=== PATIENT | male | born 1970 | race African-American/Black ===

== ENCOUNTER → 2017-08-16 10:21 | Inpatient (IN) | payer MEDICAID, OTHER ==
[2016-08-13 09:09] VITALS: BP 116/82; PULSE 131; RESP 20; TEMP 97.6; TEMP 99; O2SAT 95
[2016-08-13 10:51] VITALS: O2SAT 100
--- NOTE | 2016-08-13 11:26 | RADRPT ---
EXAM DATE/TIME: 08/13/2016 10:47 [place] COMPARISON: No previous studies available for comparison. INDICATIONS : Short of Breath. MEDICAL HISTORY : Cerebrovascular disease. Hypertension. Diabetes mellitus type 2. SURGICAL HISTORY : None. ENCOUNTER: Initial ACUITY: 1 day PAIN SCORE: Non-responsive. LOCATION: Bilateral chest FINDINGS: A single view of the chest demonstrates the lungs to be symmetrically aerated without evidence of mas s, infiltrate or effusion. The cardiomediastinal contours are unremarkable. Osseous structures are intact. CONCLUSION: No evidence of acute cardiopulmonary disease. Josafat Fortune MD on August 13, 2016 at 11:24 Board Certified Radiologist. This report was verified electronically.
[2016-08-13 11:28] LABS: AUTOMATED NEUTROPHIL # 12.3 TH/MM3 (1.8-7.7); BASOPHIL % 0.2 % (0.0-2.0); EOSINOPHIL # 0.1 TH/MM3 (0-0.4); EOSINOPHIL % 0.4 % (0.0-4.0); HEMATOCRIT 42.6 % (39.0-51.0); HEMOGLOBIN 13.6 GM/DL (13.0-17.0); LYMPH % 10.6 % (9.0-44.0); LYMPHOCYTE # 1.6 TH/MM3 (1.0-4.8); MEAN CELL VOLUME 87.8 FL (80.0-100.0); MEAN CORPUSCULAR HGB CONC 31.9 % (32.0-36.0); MEAN PLATELET VOLUME 9.4 FL (7.0-11.0); MONO % 6.2 % (0.0-8.0); MONOCYTE # 0.9 TH/MM3 (0-0.9); NEUT % 82.6 % (16.0-70.0); PLATELET COUNT 386 TH/MM3 (150-450); RED BLOOD COUNT 4.85 MIL/MM3 (4.50-5.90); WHITE BLOOD COUNT 14.9 TH/MM3 (4.0-11.0)
[2016-08-13 11:46] LABS: ALBUMIN 2.8 GM/DL (3.4-5.0); ALKALINE PHOSPHATASE 80 U/L (45-117); ALT (GPT) 25 U/L (12-78); BICARBONATE 28.5 MEQ/L (21.0-32.0); BLOOD UREA NITROGEN 28 MG/DL (7-18); CALCIUM 9.6 MG/DL (8.5-10.1); CHLORIDE 100 MEQ/L (98-107); CREATININE 1.01 MG/DL (0.60-1.30); GLOMERULAR FILTRATION RATE 97 ML/MIN (>89); GLUCOSE,RANDOM 164 MG/DL (74-106); SODIUM (NA) 138 MEQ/L (136-145); TOTAL BILIRUBIN ADULT 0.3 MG/DL (0.2-1.0); TOTAL PROTEIN 8.6 GM/DL (6.4-8.2)
[2016-08-13 11:47] LABS: AST (GOT) 52 U/L (15-37)
[2016-08-13 12:10] VITALS: BP 119/82; PULSE 123; RESP 22; O2SAT 99
[2016-08-13 12:31] LABS: BACTERIA, URINE RARE /hpf; BILIRUBIN, URINE NEG (NEG); BLOOD, URINE MOD (NEG); GLUCOSE,URINE NEG (NEG); KETONE, URINE NEG (NEG); MUCUS URINE FEW /lpf (OCC); NITRITE,URINE NEG (NEG); PH, URINE 5.5 (5.0-8.5); SQUAMOUS EPITHELIAL CELL URINE <1 /hpf (0-5); URINE COLOR YELLOW (YELLW/STRAW); URINE LEUKOCYTE ESTERASE NEG (NEG)
--- NOTE | 2016-08-13 13:50 | PD ---
HPI Chief Complaint: Skin Problem Time Seen by Provider: 10:08 Travel History International Travel<30 days: No Contact w/Intl Traveler<30days: No Traveled to known affect area: No History of Present Illness HPI 46-year-old male came to the emergency room brought by EMS with history of a skin tear on his left upper extremity. Patient has history of CVA and is bedbound. He is nonverbal. He lives with his sister who is his auto air conditioning apprentice. She called EMS. She is not here to give any history and this is the only history EMS could provide. And cannot speak for himself. He was tachycardic with heart rate of 128 in the ER. Rectal temperature done and was 99.8. PFSH Past Medical History Narrative Medical List of his past medical history as reviewed from the nursing note. Hx Anticoagulant Therapy: Yes Arthritis: No Asthma: No Autoimmune Disease: No Blood Disorders: No Anxiety: No Depression: No Heart Rhythm Problems: No Cancer: No Cardiovascular Problems: No Chemotherapy: No Chest Pain: No Congestive Heart Failure: No COPD: No Cerebrovascular Accident: Yes Diabetes: Yes (?) Patient Takes Glucophage: No Diminished Hearing: No Endocrine: No Gastrointestinal Disorders: No GERD: No Genitourinary: No Headaches: Yes Hiatal Hernia: No Hypertension: Yes Immune Disorder: No Implanted Vascular Access Dvce: No Kidney Stones: No Musculoskeletal: No Neurologic: Yes (CVA IN OCTOBER 2015) Psychiatric: No Reproductive: No Respiratory: No Immunizations Current: Yes Migraines: Yes Radiation Therapy: No Renal Failure: No Seizures: No Sickle Cell Disease: No Sleep Apnea: No Thyroid Disease: No Ulcer: No Tetanus Vaccination: > 5 Years Past Surgical History Abdominal Surgery: Yes AICD: No Arteriovenous Shunt: No Cardiac Surgery: No Ear Surgery: No Endocrine Surgery: No Eye Surgery: No Genitourinary Surgery: No Gynecologic Surgery: No Insulin Pump: No Joint Replacement: No Neurologic Surgery: No Oral Surgery: No Pacemaker: No Thoracic Surgery: No Other Surgery: Yes Social History Alcohol Use: No Tobacco Use: No Substance Use: No Allergies-Medications (Allergen,Severity, Reaction): Coded Allergies: *MDRO Multi-Drug Resistant Organism (Verified Adverse Reaction, Unknown, ) MDR-Enterobacter Aerogenes (urine-02/20/16) Comments List of his allergies reviewed from the nursing note. Reported Meds & Prescriptions Reported Meds & Active Scripts Active Active Prescriptions or Reported Medications Unobtainable Narrative Medication List of his home medications reviewed from the nursing note. Review of Systems Except as stated in HPI: all other systems reviewed are Neg Physical Exam Narrative GENERAL: Awake, nonverbal, nonambulatory SKIN: Warm and dry. HEAD: Atraumatic. Normocephalic. EYES: Pupils equal and round. No scleral icterus. No injection or drainage. ENT: No nasal bleeding or discharge. Dry mucous membrane. Poor dental hygiene NECK: Trachea midline. No JVD. CARDIOVASCULAR: Regular rate and rhythm. Tachycardia. No murmur appreciated. RESPIRATORY: No accessory muscle use. Clear to auscultation. Breath sounds equal bilaterally. GASTROINTESTINAL: Abdomen soft, non-tender, nondistended. Hepatic and splenic margins not palpable. MUSCULOSKELETAL: No obvious deformities. No clubbing. No cyanosis. No edema. NEUROLOGICAL: Awake, nonverbal, bedbound PSYCHIATRIC: Appropriate mood and affect; insight and judgment normal. Data Data Last Documented VS Vital Signs Date Time Temp Pulse Resp B/P Pulse Ox O2 Delivery O2 Flow Rate FiO2 08/13/16 12:10 123 22 119/82 99 Room Air 08/13/16 09:09 99.0 Orders Electrocardiogram (08/13/16 09:16) Complete Blood Count With Diff (08/13/16 10:36) Comprehensive Metabolic Panel (08/13/16 10:36) Lactic Acid Sepsis Protocol (08/13/16 10:36) Urinalysis - C+S If Indicated (08/13/16 10:36) Blood Culture (08/13/16 10:36) Chest, Single Ap (08/13/16 10:36) Blood Glucose (08/13/16 10:36) Ecg Monitoring (08/13/16 10:36) Iv Access Insert/Monitor (08/13/16 10:36) Oximetry (08/13/16 10:36) Oxygen Administration (08/13/16 10:36) Sodium Chlor 0.9% 1000 Ml Inj (Ns 1000 M (08/13/16 10:45) ^ Straight Catheter (08/13/16 12:11) Urine Culture (08/13/16 12:08) Sodium Chlor 0.9% 1000 Ml Inj (Ns 1000 M (08/13/16 13:45) Piperacil-Tazo 4.5 Gm Premix (Zosyn 4.5 (08/13/16 13:45) Vancomycin Inj (Vancomycin Inj) (08/13/16 13:45) Labs Laboratory Tests Test 08/13/16 08/13/16 10:45 12:08 White Blood Count 14.9 TH/MM3 Red Blood Count 4.85 MIL/MM3 Hemoglobin 13.6 GM/DL Hematocrit 42.6 % Mean Corpuscular Volume 87.8 FL Mean Corpuscular Hemoglobin 28.0 PG Mean Corpuscular Hemoglobin 31.9 % Concent Red Cell Distribution Width 15.0 % Platelet Count 386 TH/MM3 Mean Platelet Volume 9.4 FL Neutrophils (%) (Auto) 82.6 % Lymphocytes (%) (Auto) 10.6 % Monocytes (%) (Auto) 6.2 % Eosinophils (%) (Auto) 0.4 % Basophils (%) (Auto) 0.2 % Neutrophils # (Auto) 12.3 TH/MM3 Lymphocytes # (Auto) 1.6 TH/MM3 Monocytes # (Auto) 0.9 TH/MM3 Eosinophils # (Auto) 0.1 TH/MM3 Basophils # (Auto) 0.0 TH/MM3 CBC Comment DIFF FINAL Differential Comment Sodium Level 138 MEQ/L Potassium Level 4.3 MEQ/L Chloride Level 100 MEQ/L Carbon Dioxide Level 28.5 MEQ/L Anion Gap 10 MEQ/L Blood Urea Nitrogen 28 MG/DL Creatinine 1.01 MG/DL Estimat Glomerular Filtration 97 ML/MIN Rate Random Glucose 164 MG/DL Lactic Acid Level 1.7 mmol/L Calcium Level 9.6 MG/DL Total Bilirubin 0.3 MG/DL Aspartate Amino Transf 52 U/L (AST/SGOT) Alanine Aminotransferase 25 U/L (ALT/SGPT) Alkaline Phosphatase 80 U/L Total Protein 8.6 GM/DL Albumin 2.8 GM/DL Urine Color YELLOW Urine Turbidity CLEAR Urine pH 5.5 Urine Specific [place] 1.031 Urine Protein 100 mg/dL Urine Glucose (UA) NEG mg/dL Urine Ketones NEG mg/dL Urine Occult Blood MOD Urine Nitrite NEG Urine Bilirubin NEG Urine Urobilinogen LESS THAN 2.0 MG/DL Urine Leukocyte Esterase NEG Urine WBC LESS THAN 1 /hpf Urine Squamous Epithelial <1 /hpf Cells Urine Bacteria RARE /hpf Urine Mucus FEW /lpf Microscopic Urinalysis Comment CATH-CULTURE IND MDM Medical Decision Making Medical Screen Exam Complete: Yes Emergency Medical Condition: Yes Medical Record Reviewed: Yes Interpretation(s) Twelve-lead EKG was reviewed by me. Normal sinus rhythm, normal axis, nonspecific ST-T wave changes, tachycardia. Heart rate of 129 bpm. Differential Diagnosis Sepsis, pneumonia, UTI Narrative Course 1:48 PM blood test results are back shows leukocytosis. UA report finally came back which had to be sent after doing a straight catheter. Patient was initially given 1 L of IV fluid bolus which has brought his heart rate down to 110 bpm. I have ordered a second liter of IV fluid bolus. UA is suggestive of UTI. I have ordered IV Zosyn and vancomycin for possible sepsis. Patient was admitted to the hospitalist service. Critical Care Narrative Aggregate critical care time was 30 minutes. Time to perform other separately billable procedures was not included in the critical care time. My time did not include minutes spent treating any other patients simultaneously or on activities that did not directly contribute to the patient's treatment. The services I provided to this patient were to treat and/or prevent clinically significant deterioration that could result in: Sepsis, sepsis protocol I provided critical care services requiring my management, as noted below: Chart data review, documentation time, medication orders and management, vital sign assessments/reviewing monitor data, ordering and reviewing lab tests, ordering and interpreting/reviewing x-rays and diagnostic studies, care of the patient and discussion of the patient with the admitting physicians. Procedures EKG Prior to Arrival: Yes Diagnosis Primary Impression: Sepsis Qualified Code: A41.9 - Sepsis, due to unspecified organism Additional Impression: UTI (urinary tract infection) Qualified Code: N39.0 - Urinary tract infection without hematuria, site unspecified Admitting Information Admitting Physician Requests: Admit Scripts Unable to Obtain Active Prescriptions or Reported Meds Rocco Marsh MD Aug 13, 2016 13:50 Rocco Marsh MD Aug 13, 2016 13:50
[2016-08-13] MEDS: INSULIN ASPART SUPPLEMENTAL SCALE SQ SCH ×2 (16:00→21:00)
[2016-08-13] MEDS: DILTIAZEM-CD 120 MG CAP ER PO SCH (16:00)
[2016-08-13] MEDS: SODIUM CHLOR 0.9% 1000 ML INJ 1,000 ML IV SCH (17:00)
--- NOTE | 2016-08-13 17:22 | EKG ---
Date Performed: 08/13/2016 Time Performed: 09:19:09 PTAGE: 46 years EKG: SINUS TACHYCARDIA WITH SHORT OH INTERVAL Compared to previous tracing, HR is faster, otherw ise no significant change ABNORMAL RHYTHM ECG INTERPRETATION BASED ON A DEFAULT AGE OF 42 YEARS NO PREVIOUS TRACING DOCTOR: London Yi Interpretating Date/Time 08/13/2016 17:20:56
--- NOTE | 2016-08-13 17:26 | HHI.HP ---
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 All the information obtained from the EMR and ER physicians know as the patient is nonverbal and unable to provide any history. Apparently the patient lives at home with his sister who is his pedigree tracer. She reported the patient has had decreased oral intake over the past few days. Also complains of a skin tear at the left antecubital space , unknown how the injury occurred. Upon arrival to the ER, patient was tachycardic with heart rate 131, rectal temperature 99.8. Labs remarkable for WBC 14.9 K, elevated BUN 28, lactic acid 1.7. Urinalysis shows possible UTI with bacteria. Blood cultures collected. He was started on IV Vanco and Zosyn. Review of Systems ROS Limitations: Speech Impaired, Other (nonverbal, unable to obtain ROS) Past Family Social History Past Medical History neuro-Behcet's diagnosed at [facility] [place] left frontal CVA, bedbound, nonverbal mural thrombus brain abscess meningitis hypertension diabetes Past Surgical History Right chest tube Reported Medications Patient's home medications unavailable at this time, requested nursing staff to update med list Allergies: Coded Allergies: *MDRO Multi-Drug Resistant Organism (Verified Adverse Reaction, Unknown, ) MDR-Enterobacter Aerogenes (urine-02/20/16) Active Ordered Medications Current Medications Medications (Trade) Dose Ordered Sig/Beau Route Start Time Stop Time Status Last Admin (Cardizem Cd) 120 mg DAILY PO 08/13/16 16:00 (Pepcid) 20 mg BID PO 08/13/16 21:00 (D50w (Vial) Inj) 25 ml UNSCH PRN IV PUSH 08/13/16 13:45 Glucagon 1 mg 1 mg UNSCH PRN OTHER 08/13/16 13:45 Piperacillin Sod/ Tazobactam Sod 100 ml @ 200 mls/hr Q6H IV 08/13/16 21:00 (NS 1000 ml Inj) 1,000 ml @ 100 mls/hr Q10H IV 08/13/16 15:00 08/13/16 17:00 (NS Flush) 2 ml UNSCH PRN FLUSH 08/13/16 14:00 (NS Flush) 2 ml BID FLUSH 08/13/16 21:00 (Tylenol) 650 mg Q4H PRN PO 08/13/16 14:00 (Zofran Inj) 4 mg Q6H PRN IVP 08/13/16 14:00 (Narcan Inj) 0.4 mg UNSCH PRN IV 08/13/16 14:00 (Lipitor) 40 mg HS PO 08/13/16 21:00 Family History Unable to obtain from the patient Social History Unable to obtain from the patient, however EMR reports no tobacco, alcohol, or illicit drug use. Physical Exam Vital Signs Vital Signs Date Time Temp Pulse Resp B/P Pulse Ox O2 Delivery O2 Flow Rate FiO2 08/13/16 12:10 123 22 119/82 99 Room Air 08/13/16 10:51 100 Room Air 08/13/16 10:43 100 Room Air 08/13/16 09:09 99.0 131 20 116/82 95 Physical Exam GENERAL: Well-developed male patient, moaning only, nonverbal, nonambulatory. SKIN: Cool and dry. Left antecubital space with 2cm superficial skin tear. HEAD: Atraumatic. Normocephalic. EYES: Pupils equal round and reactive. No scleral icterus. No injection or drainage. ENT: Nose without bleeding, purulent drainage or septal hematoma. Airway patent. NECK: Trachea midline. No JVD or lymphadenopathy. Supple, nontender, no meningeal signs. CARDIOVASCULAR: Tachycardic, Regular rhythm without murmurs, gallops, or rubs. RESPIRATORY: No accessory muscle use. Some upper airway sounds, otherwise clear to auscultation. Breath sounds equal bilaterally. GASTROINTESTINAL: Abdomen soft, non-tender, nondistended. Normoactive bowel sounds x4. MUSCULOSKELETAL: Extremities without clubbing, cyanosis, or edema. NEUROLOGICAL: Awake and alert. Nonverbal, bedbound, not moving extremities. Laboratory Laboratory Tests Test 08/13/16 08/13/16 10:45 12:08 White Blood Count 14.9 Red Blood Count 4.85 Hemoglobin 13.6 Hematocrit 42.6 Mean Corpuscular Volume 87.8 Mean Corpuscular Hemoglobin 28.0 Mean Corpuscular Hemoglobin 31.9 Concent Red Cell Distribution Width 15.0 Platelet Count 386 Mean Platelet Volume 9.4 Neutrophils (%) (Auto) 82.6 Lymphocytes (%) (Auto) 10.6 Monocytes (%) (Auto) 6.2 Eosinophils (%) (Auto) 0.4 Basophils (%) (Auto) 0.2 Neutrophils # (Auto) 12.3 Lymphocytes # (Auto) 1.6 Monocytes # (Auto) 0.9 Eosinophils # (Auto) 0.1 Basophils # (Auto) 0.0 CBC Comment DIFF FINAL Differential Comment Sodium Level 138 Potassium Level 4.3 Chloride Level 100 Carbon Dioxide Level 28.5 Anion Gap 10 Blood Urea Nitrogen 28 Creatinine 1.01 Estimat Glomerular Filtration 97 Rate Random Glucose 164 Lactic Acid Level 1.7 Calcium Level 9.6 Total Bilirubin 0.3 Aspartate Amino Transf 52 (AST/SGOT) Alanine Aminotransferase 25 (ALT/SGPT) Alkaline Phosphatase 80 Total Protein 8.6 Albumin 2.8 Urine Color YELLOW Urine Turbidity CLEAR Urine pH 5.5 Urine Specific [place] 1.031 Urine Protein 100 Urine Glucose (UA) NEG Urine Ketones NEG Urine Occult Blood MOD Urine Nitrite NEG Urine Bilirubin NEG Urine Urobilinogen LESS THAN 2.0 Urine Leukocyte Esterase NEG Urine WBC LESS THAN 1 Urine Squamous Epithelial <1 Cells Urine Bacteria RARE Urine Mucus FEW Microscopic Urinalysis Comment CATH-CULTURE IND Date/Time Procedure Status Source Growth 08/13/16 12:08 Urine Culture Received Urine Clean Catch Pending 08/13/16 10:45 Aerobic Blood Culture Received Blood Peripheral Pending 08/13/16 10:45 Anaerobic Blood Culture Received Blood Peripheral Pending Result Diagram: 08/13/16 1045 08/13/16 1045 Imaging Last Impressions Chest X-Ray 08/13/16 1036 Signed Impressions: Service Date/Time: Saturday, August 13, 2016 10:47 - CONCLUSION: No evidence of acute cardiopulmonary disease. 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 Sepsis with UTI: tachycardic with heart rate 131, rectal temperature 99.8. Labs remarkable for WBC 14.9 K, elevated BUN 28, lactic acid 1.7. Urinalysis shows possible UTI with bacteria. CXR images reviewed, unremarkable. Blood cultures collected. Started on IV Vanco and Zosyn in the ED. Give IVF. Continue Zosyn. Decreased Oral Intake: likely secondary to above, however RN also noted patient choking on sips on water. Check swallow eval with ST. Give IVF. Left antecubital skin tear: Etiology unclear. Family reports that it started as a blister. Continue dressing changes per RN. Diabetes: chronic, monitor Accu-Cheks and cover with low-dose SSI. All other medical conditions stable, continue home meds. DVT Prophylaxis: teds/SCDs Written by Anita Cabrera, acting as scribe for Dr. Garrett on 08/13/16 at 17: 25. The documentation accurately reflects the work performed [id number] by me on 08/13/16 at 1725. Discussed Condition With ER MD, [employer] Physician Certification 2 Midnight Certification Type: Admission for Inpatient Services Order for Inpatient Services The services are ordered in accordance with Medicare regulations or non- Medicare payer requirements, as applicable. In the case of services not specified as inpatient-only, they are appropriately provided as inpatient services in accordance with the 2-midnight benchmark. Estimated LOS (days): 3 days is the estimated time the patient will need to remain in the hospital, assuming treatment plan goals are met and no additional complications. Post-Hospital Plan: Not yet determined Anita Cabrera PA-C Aug 13, 2016 17:26 Leticia Garrett MD Aug 13, 2016 18:46
[2016-08-13 18:28] VITALS: BP 125/83; PULSE 107; RESP 20; O2SAT 100
[2016-08-13 19:07] VITALS: BP 113/86; PULSE 100; RESP 15; O2SAT 100
[2016-08-13] MEDS: ATORVASTATIN 40 MG TAB PO SCH (19:07)
[2016-08-13] MEDS: SODIUM CHLORIDE 0.9% FLUSH 5 ML FLUSH FLUSH SCH (19:08)
[2016-08-13] MEDS: FAMOTIDINE 20 MG TAB PO SCH (19:08)
[2016-08-13 21:00] VITALS: BP 143/60; PULSE 89; RESP 18; TEMP 96.5; O2SAT 96
[2016-08-13] MEDS: PIPERACIL-TAZO 4.5 GM PREMIX 100 ML IV SCH (22:27)
[2016-08-14] VITALS: BP 104/76; PULSE 106; RESP 17; TEMP 96.5; O2SAT 99
[2016-08-14] MEDS: PIPERACIL-TAZO 4.5 GM PREMIX 100 ML IV SCH ×4 (02:51→22:55)
[2016-08-14] MEDS: SODIUM CHLOR 0.9% 1000 ML INJ 1,000 ML IV SCH ×2 (02:52→11:00)
[2016-08-14 04:00] VITALS: BP 99/68; PULSE 111; RESP 20; TEMP 97.7; O2SAT 99
[2016-08-14] MEDS: INSULIN ASPART SUPPLEMENTAL SCALE SQ SCH ×4 (07:00→21:00)
[2016-08-14 07:50] VITALS: BP 106/70; PULSE 101; RESP 20; TEMP 96.2; O2SAT 98
[2016-08-14 07:51] LABS: AUTOMATED NEUTROPHIL # 9.6 TH/MM3 (1.8-7.7); BASOPHIL % 0.2 % (0.0-2.0); EOSINOPHIL # 0.1 TH/MM3 (0-0.4); EOSINOPHIL % 1.2 % (0.0-4.0); HEMATOCRIT 33.7 % (39.0-51.0); HEMOGLOBIN 10.8 GM/DL (13.0-17.0); LYMPH % 10.4 % (9.0-44.0); LYMPHOCYTE # 1.2 TH/MM3 (1.0-4.8); MEAN CELL VOLUME 87.9 FL (80.0-100.0); MEAN CORPUSCULAR HEMOGLOBIN 28.2 PG (27.0-34.0); MONO % 5.9 % (0.0-8.0); MONOCYTE # 0.7 TH/MM3 (0-0.9); NEUT % 82.3 % (16.0-70.0); PLATELET COUNT 335 TH/MM3 (150-450); RED BLOOD COUNT 3.84 MIL/MM3 (4.50-5.90); RED CELL DISTRIBUTION WIDTH 15.1 % (11.6-17.2); WHITE BLOOD COUNT 11.6 TH/MM3 (4.0-11.0)
[2016-08-14 08:24] LABS: CALCIUM 8.9 MG/DL (8.5-10.1); CREATININE 0.97 MG/DL (0.60-1.30)
[2016-08-14] MEDS: DILTIAZEM-CD 120 MG CAP ER PO SCH (09:00)
[2016-08-14] MEDS: FAMOTIDINE 20 MG TAB PO SCH ×2 (09:00→21:00)
[2016-08-14] MEDS: SODIUM CHLORIDE 0.9% FLUSH 5 ML FLUSH FLUSH SCH ×2 (09:00→21:00)
[2016-08-14 11:55] VITALS: BP 100/69; PULSE 102; RESP 20; TEMP 96.6; O2SAT 99
--- NOTE | 2016-08-14 13:23 | HHI.PR ---
Subjective Remarks Patient is nonverbal. He can shake his head yes or no to some questions. Afebrile. He still moans. Unclear if he is in pain but he nods no when asked. Objective Vitals Vital Signs Date Time Temp Pulse Resp B/P Pulse Ox O2 Delivery O2 Flow Rate FiO2 08/14/16 11:55 96.6 102 20 100/69 99 08/14/16 07:50 96.2 101 20 106/70 98 08/14/16 04:00 97.7 111 20 99/68 99 08/14/16 00:00 96.5 106 17 104/76 99 08/13/16 21:00 96.5 89 18 143/60 96 08/13/16 19:07 100 15 113/86 100 Room Air 08/13/16 18:28 107 20 125/83 100 Room Air I/O 08/13/16 08/13/16 08/13/16 08/14/16 08/14/16 08/14/16 06:59 14:59 22:59 06:59 14:59 22:59 Intake Total 322 ml 680 ml Output Total 600 ml Balance 322 ml 80 ml Intake IV Total 322 ml 680 ml Output Urine Total 600 ml # Voids 1 Result Diagram: 08/14/16 0716 08/14/16 0716 Imaging Last Impressions Chest X-Ray 08/13/16 1036 Signed Impressions: Service Date/Time: Saturday, August 13, 2016 10:47 - CONCLUSION: No evidence of acute cardiopulmonary disease. Josafat Fortune MD Objective Remarks GENERAL: Chronically ill-appearing male in no apparent distress. Moans most of the time. CARDIOVASCULAR: Normal rate and regular rhythm without murmurs, gallops, or rubs. RESPIRATORY: Breath sounds equal and clear to auscultation bilaterally. GASTROINTESTINAL: Abdomen soft, non-distended. Normal active bowel sounds MUSCULOSKELETAL: Extremities without some evidence of contractures. NEURO: Patient is nonverbal. Noninteractive. Can nod yes or no to some questions. 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 Sepsis with UTI: On arrival patient was tachycardic with heart rate 131, rectal temperature 99.8. Labs remarkable for WBC 14.9 K, elevated BUN 28, lactic acid 1.7. Urinalysis shows possible UTI with bacteria. CXR images reviewed, unremarkable. Started on IV Vanco and Zosyn in the ED. Give IVF. Continue Zosyn. Follow blood and urine cultures. Decreased Oral Intake: likely secondary to above, however RN also noted patient choking on sips on water. Patient appear to have a lot of secretions. Suction as needed. Consult speech therapy for swallow eval. Left antecubital skin tear: Etiology unclear. Family reports that it started as a blister. Continue dressing changes per RN. Diabetes: chronic, monitor Accu-Cheks and cover with low-dose SSI. All other medical conditions stable, continue home meds. DVT Prophylaxis: teds/SCDs Problem Qualifiers (1) UTI (urinary tract infection): Qualified Code: N39.0 - Urinary tract infection without hematuria, site unspecified (2) Sepsis: Qualified Code: A41.9 - Sepsis, due to unspecified organism Leticia Garrett MD Aug 14, 2016 13:23
[2016-08-14] MEDS: D5-1/2 NS + KCL 10 MEQ INJ 1,000 ML IV SCH ×2 (14:03→23:30)
[2016-08-14 15:00] VITALS: BP 101/67; PULSE 97; RESP 20; TEMP 96.7; O2SAT 98
[2016-08-14 20:00] VITALS: BP 104/70; PULSE 98; RESP 18; TEMP 96.6; O2SAT 99
[2016-08-14] MEDS: ATORVASTATIN 40 MG TAB PO SCH (21:00)
[2016-08-15] VITALS: BP 108/68; PULSE 96; RESP 17; TEMP 97.5; O2SAT 98
[2016-08-15] MEDS: PIPERACIL-TAZO 4.5 GM PREMIX 100 ML IV SCH ×4 (02:14→19:53)
[2016-08-15 04:00] VITALS: BP 108/80; PULSE 97; RESP 17; TEMP 97.9; O2SAT 99
[2016-08-15] MEDS: INSULIN ASPART SUPPLEMENTAL SCALE SQ SCH ×4 (06:45→19:56)
[2016-08-15 08:00] VITALS: BP 107/69; PULSE 97; RESP 16; TEMP 97.6; O2SAT 98
[2016-08-15] MEDS: DILTIAZEM-CD 120 MG CAP ER PO SCH (09:00)
[2016-08-15] MEDS: FAMOTIDINE 20 MG TAB PO SCH ×2 (09:00→19:54)
[2016-08-15] MEDS: SODIUM CHLORIDE 0.9% FLUSH 5 ML FLUSH FLUSH SCH ×2 (09:00→19:53)
[2016-08-15] MEDS: D5-1/2 NS + KCL 10 MEQ INJ 1,000 ML IV SCH ×2 (09:30→19:53)
--- NOTE | 2016-08-15 09:33 | HHI.PR ---
Subjective Remarks No new issues. Patient can nod yes or no. Appear more alert today. Need modified barium swallow eval per speech therapy recommendations. Objective Vitals Vital Signs Date Time Temp Pulse Resp B/P Pulse Ox O2 Delivery O2 Flow Rate FiO2 08/15/16 04:00 97.9 97 17 108/80 99 08/15/16 00:00 97.5 96 17 108/68 98 08/14/16 20:00 96.6 98 18 104/70 99 08/14/16 15:00 96.7 97 20 101/67 98 08/14/16 11:55 96.6 102 20 100/69 99 I/O 08/14/16 08/14/16 08/14/16 08/15/16 08/15/16 08/15/16 06:59 14:59 22:59 06:59 14:59 22:59 Intake Total 680 ml 868 ml Output Total 600 ml 450 ml 400 ml Balance 80 ml 418 ml -400 ml Intake Oral 0 ml IV Total 680 ml 868 ml Output Urine Total 600 ml 450 ml 400 ml # Voids 1 # Bowel Movements 0 0 Result Diagram: 08/14/16 0716 08/14/16 0716 Objective Remarks GENERAL: Chronically ill-appearing male in no apparent distress. Moans sometimes. Can nod yes or no to some questions. CARDIOVASCULAR: Normal rate and regular rhythm without murmurs, gallops, or rubs. RESPIRATORY: Breath sounds equal and clear to auscultation bilaterally. GASTROINTESTINAL: Abdomen soft, non-distended. Normal active bowel sounds MUSCULOSKELETAL: Extremities without some evidence of contractures. NEURO: Patient is nonverbal. Noninteractive. Can nod yes or no to some questions. 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 Sepsis with UTI: On arrival patient was tachycardic with heart rate 131, rectal temperature 99.8. Labs remarkable for WBC 14.9 K, elevated BUN 28, lactic acid 1.7. Urinalysis shows possible UTI with bacteria. CXR images reviewed, unremarkable. Started on IV Vanco and Zosyn in the ED. Give IVF. Continue Zosyn. Urine cultures negative. One out of 4 blood cultures with gram- positive. ? Contaminant. Repeat blood cultures. Decreased Oral Intake and dysphagia: Speech therapy following. Recommend modified barium swallow. This was ordered. May need alternate method of feeding. Left antecubital skin tear: Etiology unclear. Family reports that it started as a blister. Continue dressing changes per RN. Diabetes: chronic, monitor Accu-Cheks and cover with low-dose SSI. All other medical conditions stable, continue home meds. DVT Prophylaxis: teds/SCDs Problem Qualifiers (1) UTI (urinary tract infection): Qualified Code: N39.0 - Urinary tract infection without hematuria, site unspecified (2) Sepsis: Qualified Code: A41.9 - Sepsis, due to unspecified organism Leticia Garrett MD Aug 15, 2016 09:33
--- NOTE | 2016-08-15 11:37 | RADRPT ---
EXAM DATE/TIME: 08/15/2016 00:00 [facility] COMPARISON: No previous studies available for comparison. INDICATIONS : Dysphagia. FLUORO TIME: 3.8 minutes IMAGE COUNT: 0 CONTRAST: Dose as prescribed by speech pathologist. MEDICAL HISTORY : Cerebrovascular disease. Diabetes mellitus type II. Hypertension. stroke SURGICAL HISTORY : None. ENCOUNTER: Initial ACUITY: 2 days PAIN SCORE: Non-responsive. LOCATION: Bilateral neck FINDINGS: A modified barium swallow was performed with speech pathology. Patient was given a variety of liquids to swallow. Delayed oral emptying with tongue pumping is appreciated. After swallowing an appropriate trigger mec hanism of the cervical esophagus is normal both anatomically and physiologically with no evidence of penetration or aspiration. For a full detailed report, see report by the speech pathologist. CONCLUSION: See report above and speech pathology report Chacho Bright MD on August 15, 2016 at 11:34 Board Certified Radiologist. This report was verified electronically.
[2016-08-15 12:00] VITALS: BP 106/70; PULSE 89; RESP 16; TEMP 97.8; O2SAT 98
[2016-08-15 13:38] LABS: AUTOMATED NEUTROPHIL # 12.1 TH/MM3 (1.8-7.7); BASOPHIL % 0.1 % (0.0-2.0); EOSINOPHIL # 0.1 TH/MM3 (0-0.4); EOSINOPHIL % 0.4 % (0.0-4.0); HEMOGLOBIN 11.6 GM/DL (13.0-17.0); LYMPH % 6.5 % (9.0-44.0); LYMPHOCYTE # 0.9 TH/MM3 (1.0-4.8); MEAN CELL VOLUME 89.7 FL (80.0-100.0); MEAN CORPUSCULAR HEMOGLOBIN 28.2 PG (27.0-34.0); MEAN CORPUSCULAR HGB CONC 31.4 % (32.0-36.0); MEAN PLATELET VOLUME 8.7 FL (7.0-11.0); MONOCYTE # 0.7 TH/MM3 (0-0.9); PLATELET COUNT 349 TH/MM3 (150-450); RED BLOOD COUNT 4.12 MIL/MM3 (4.50-5.90); RED CELL DISTRIBUTION WIDTH 15.1 % (11.6-17.2); WHITE BLOOD COUNT 13.8 TH/MM3 (4.0-11.0)
[2016-08-15 14:06] LABS: CREATININE 1.01 MG/DL (0.60-1.30)
[2016-08-15 16:15] VITALS: BP 113/68; PULSE 119; RESP 18; TEMP 102.4; O2SAT 96
--- NOTE | 2016-08-15 17:06 | RADRPT ---
EXAM DATE/TIME: 08/15/2016 16:35 [facility] COMPARISON: CHEST SINGLE AP, August 13, 2016, 10:47. INDICATIONS : Fever. MEDICAL HISTORY : Cerebrovascular disease. Hypertension. Diabetes mellitus type 2. SURGICAL HISTORY : None. ENCOUNTER: Subsequent ACUITY: 3 days PAIN SCORE: Non-responsive. LOCATION: Bilateral chest FINDINGS: A single view of the chest demonstrates the lungs to be symmetrically aerated without evidence of mas s, infiltrate or effusion. The cardiomediastinal contours are unremarkable. Osseous structures are intact. CONCLUSION: No acute disease. No significant change has occurred. No significant change has occurred. Chacho Bright MD on August 15, 2016 at 17:04 Board Certified Radiologist. This report was verified electronically.
[2016-08-15 18:03] LABS: AUTOMATED NEUTROPHIL # 15.1 TH/MM3 (1.8-7.7); BASOPHIL % 0.2 % (0.0-2.0); EOSINOPHIL % 0.2 % (0.0-4.0); HEMATOCRIT 31.5 % (39.0-51.0); LYMPH % 3.6 % (9.0-44.0); LYMPHOCYTE # 0.6 TH/MM3 (1.0-4.8); MEAN CELL VOLUME 87.7 FL (80.0-100.0); MEAN CORPUSCULAR HEMOGLOBIN 27.8 PG (27.0-34.0); MEAN CORPUSCULAR HGB CONC 31.6 % (32.0-36.0); MEAN PLATELET VOLUME 8.8 FL (7.0-11.0); MONO % 3.9 % (0.0-8.0); MONOCYTE # 0.6 TH/MM3 (0-0.9); NEUT % 92.1 % (16.0-70.0); PLATELET COUNT 376 TH/MM3 (150-450); RED BLOOD COUNT 3.59 MIL/MM3 (4.50-5.90); RED CELL DISTRIBUTION WIDTH 15.1 % (11.6-17.2); WHITE BLOOD COUNT 16.4 TH/MM3 (4.0-11.0)
[2016-08-15 18:29] LABS: BILIRUBIN, URINE NEG (NEG); BLOOD, URINE NEG (NEG); GLUCOSE,URINE NEG (NEG); KETONE, URINE NEG (NEG); MUCUS URINE FEW /lpf (OCC); NITRITE,URINE NEG (NEG); URINE COLOR YELLOW (YELLW/STRAW); URINE LEUKOCYTE ESTERASE NEG (NEG)
[2016-08-15] MEDS: ATORVASTATIN 40 MG TAB PO SCH (19:54)
[2016-08-15 20:00] VITALS: BP 125/83; PULSE 109; RESP 14; TEMP 98.4; O2SAT 98
[2016-08-16] VITALS (16 sets, daily range): BP systolic 100–134; BP diastolic 63–79; PULSE 106–141; RESP 16–32; TEMP 97.9–104.4; O2SAT 97–100
[2016-08-16] MEDS: PIPERACIL-TAZO 4.5 GM PREMIX 100 ML IV SCH ×2 (02:53→08:27)
[2016-08-16] MEDS: VANCOMYCIN INJ 900 MG in SODIUM CHLOR 0.9% 250 ML INJ 250 ML IV SCH ×2 (05:23→20:26)
[2016-08-16] MEDS: D5-1/2 NS + KCL 10 MEQ INJ 1,000 ML IV SCH ×3 (05:23→23:37)
[2016-08-16] MEDS: INSULIN ASPART SUPPLEMENTAL SCALE SQ SCH ×4 (07:00→20:38)
[2016-08-16 07:32] LABS: HEMATOCRIT 33.6 % (39.0-51.0); HEMOGLOBIN 10.5 GM/DL (13.0-17.0); MEAN CELL VOLUME 88.6 FL (80.0-100.0); MEAN CORPUSCULAR HEMOGLOBIN 27.8 PG (27.0-34.0); MEAN CORPUSCULAR HGB CONC 31.3 % (32.0-36.0); MEAN PLATELET VOLUME 8.7 FL (7.0-11.0); PLATELET COUNT 354 TH/MM3 (150-450); RED CELL DISTRIBUTION WIDTH 15.1 % (11.6-17.2); WHITE BLOOD COUNT 25.6 TH/MM3 (4.0-11.0)
[2016-08-16 07:44] LABS: BICARBONATE 23.6 MEQ/L (21.0-32.0); CALCIUM 8.6 MG/DL (8.5-10.1); CREATININE 1.11 MG/DL (0.60-1.30)
[2016-08-16] MEDS: SODIUM CHLORIDE 0.9% FLUSH 5 ML FLUSH FLUSH SCH ×2 (08:00→20:30)
[2016-08-16] MEDS: FAMOTIDINE 20 MG TAB PO SCH ×2 (09:00→21:00)
[2016-08-16] MEDS: DILTIAZEM-CD 120 MG CAP ER PO SCH (09:00)
--- NOTE | 2016-08-16 09:23 | HHI.PR ---
Subjective Remarks Persistent fever. Tachycardic on the 130's. RN reports that he is less responsive. Not nodding yes or no as well or appropriately. Patient was able to nod no when I asked about pain. Objective Vitals Vital Signs Date Time Temp Pulse Resp B/P Pulse Ox O2 Delivery O2 Flow Rate FiO2 08/16/16 08:36 102.8 141 32 107/63 97 08/16/16 04:00 101.5 123 16 106/67 97 08/16/16 00:45 103.1 124 16 127/79 98 08/15/16 20:00 98.4 109 14 125/83 98 08/15/16 16:15 102.4 119 18 113/68 96 08/15/16 12:00 97.8 89 16 106/70 98 I/O 08/15/16 08/15/16 08/15/16 08/16/16 08/16/16 08/16/16 07:00 15:00 23:00 07:00 15:00 23:00 Intake Total 3980 ml Output Total 750 ml Balance -750 ml 3980 ml Intake Oral 0 ml IV Total 3980 ml Output Urine Total 750 ml # Voids 1 Result Diagram: 08/16/16 0640 08/16/16 0640 Objective Remarks GENERAL: Chronically ill-appearing male in no apparent distress. Moans sometimes. Can nod yes or no to some questions. CARDIOVASCULAR: Normal rate and regular rhythm without murmurs, gallops, or rubs. RESPIRATORY: Breath sounds equal and clear to auscultation bilaterally. GASTROINTESTINAL: Abdomen soft, non-distended. Normal active bowel sounds MUSCULOSKELETAL: Extremities without some evidence of contractures. NEURO: Patient is nonverbal. Noninteractive. Can nod yes or no to some questions. 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 Sepsis, unclear source. Initially thought to be due to UTI but urine culture is neg: On arrival patient was tachycardic with heart rate 131, rectal temperature 99.8. Labs remarkable for WBC 14.9 K, elevated BUN 28, lactic acid 1.7. Urinalysis shows possible UTI with bacteria. CXR images reviewed, unremarkable. Started on IV Vanco and Zosyn in the ED. Give IVF. Continue Zosyn. Urine cultures negative. One out of 4 blood cultures with staph epidermidis. ? Contaminant. Repeat blood cultures pending. Obtain brain CT given history of brain abscess and stroke. - Consult ID for assistance. Persistent fever: Could be due to sepsis but no source identified yet. ?Drug fever. Stop Zosyn for now and keep on Vancomycin which was started after he started to have fevers. Obtain urine eosinophils. Decreased Oral Intake and dysphagia: Speech therapy following. S/P barium swallow. Patient needs alternate method of feeding with PEG due to severe dysphagia. I spoke to his Lucille who agreed to PEG. GI was consulted. Intermittent Sinus Tachycardia: Patient has been on Cardizem for this but has been unable to take oral medications. Transfer to [facility] for IV medications until feeding tube can be established. GRANT RN, can crush medication with thickened liquid per speech. Left antecubital skin tear: Etiology unclear. Family reports that it started as a blister. Continue dressing changes per RN. Diabetes: chronic, monitor Accu-Cheks and cover with low-dose SSI. All other medical conditions stable, continue home meds. DVT Prophylaxis: teds/SCDs Problem Qualifiers (1) UTI (urinary tract infection): Qualified Code: N39.0 - Urinary tract infection without hematuria, site unspecified (2) Sepsis: Qualified Code: A41.9 - Sepsis, due to unspecified organism Leticia Garrett MD Aug 16, 2016 09:23
[2016-08-16] MEDS: ACETAMINOPHEN 650 MG SUPP RECTAL PRN ×2 (10:02→20:15)
--- NOTE | 2016-08-16 10:11 | RADRPT ---
EXAM DATE/TIME: 08/16/2016 09:55 [facility] COMPARISON: MRI BRAIN W & W/O CONTRAST, January 20, 2016, 16:43. CT BRAIN W/O CONTRAST, February 20, 2016, 11:59. INDICATIONS : Altered mental status. RADIATION DOSE: 56.35 CTDIvol (mGy) MEDICAL HISTORY : Cerebrovascular disease. Diabetes mellitus type 2. Hypertension. SURGICAL HISTORY : None. ENCOUNTER: Initial ACUITY: 1 day PAIN SCALE: 2/10 LOCATION: cranial TECHNIQUE: Multiple contiguous axial images were obtained of the head. Using automated exposure control and adj ustment of the mA and/or kV according to patient size, radiation dose was kept as low as reasonably a chievable to obtain optimal diagnostic quality images. FINDINGS: CEREBRUM: A small area of linear low density in the left frontal lobe is again seen likely chronic ischemic rajiv nges. The ventricles are normal for age. No evidence of midline shift, mass lesion, hemorrhage or ac [place] infarction. No extra-axial fluid collections are seen. POSTERIOR FOSSA: The cerebellum and brainstem are intact. The 4th ventricle is midline. The cerebellopontine angle i s unremarkable. EXTRACRANIAL: The visualized portion of the orbits is intact. SKULL: The calvaria is intact. No evidence of skull fracture. CONCLUSION: Chronic ischemic changes left frontal lobe possibly from evidence of previous ventriculostomy placeme nt, unchanged. No acute intracranial abnormality. Gen Potter MD on August 16, 2016 at 10:06 Board Certified Radiologist. This report was verified electronically.
[2016-08-16] MEDS: METOPROLOL TARTRATE 5 MG/5 ML VIAL IV PUSH PRN ×2 (14:00→20:22)
--- NOTE | 2016-08-16 14:41 | PD.CONS ---
HPI History of Present Illness This is an unfortunate 46 year old male with of history neuro-Behcet's diagnosed at [place], left frontal CVA, bedbound, nonverbal, mural thrombus, brain abscess, meningitis, hypertension, diabetes, presents for decreased oral intake over the past 23 days, and skin tear at the left upper extremity and was found sepsis, leukocytosis of unknown source. Patient non verbal, most of HPI obtained from EMR and nurse. Gi have been consulted for PEG tube placement. ST evaluated patient and recommendation was for PEG tube as primary source and pleasure honey to thickened liquid consistency. MBS showed delayed oral emptying with tongue pumping is appreciated, no evidence of penetration or aspiration. 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) Medications Current Medications Medications (Trade) Dose Ordered Sig/Beau Route Start Time Stop Time Status Last Admin (Cardizem Cd) 120 mg DAILY PO 08/13/16 16:00 (Pepcid) 20 mg BID PO 08/13/16 21:00 (D50w (Vial) Inj) 25 ml UNSCH PRN IV PUSH 08/13/16 13:45 (Glucagon Inj) 1 mg UNSCH PRN OTHER 08/13/16 13:45 (NS Flush) 2 ml UNSCH PRN FLUSH 08/13/16 14:00 (NS Flush) 2 ml BID FLUSH 08/13/16 21:00 08/16/16 08:00 (Tylenol) 650 mg Q4H PRN PO 08/13/16 14:00 (Zofran Inj) 4 mg Q6H PRN IVP 08/13/16 14:00 (Narcan Inj) 0.4 mg UNSCH PRN IV 08/13/16 14:00 Atorvastatin Calcium 40 mg 40 mg HS PO 08/13/16 21:00 (D5-1/2 NS + KCl 10 Meq Inj) 1,000 ml @ 150 mls/hr Q6H40M IV 08/14/16 13:30 08/16/16 05:23 Acetaminophen 650 mg 650 mg Q6H PRN RECTAL 08/15/16 16:30 08/16/16 10:02 Pharmacy Profile Note 0 ml @ 0 mls/hr UNSCH OTHER 08/15/16 16:30 (Vancomycin Inj/ NS 250 ml Inj) 259 ml @ 250 mls/hr Q12H IV 08/16/16 05:00 08/16/16 05:23 Miscellaneous Information SPECIFIC LAB TO BE BEATRICE... ONCE ONCE XX 08/17/16 04:45 08/17/16 04:46 (Lopressor Inj) 2.5 mg Q6H PRN IV PUSH 08/16/16 09:15 Family History Unable to obtain from the patient Social History Unable to obtain from the patient, however EMR reports no tobacco, alcohol, or illicit drug use. Review of Systems ROS Unable to obtain, patient nonverbal GI Exam Vitals I&O Vital Signs Date Time Temp Pulse Resp B/P Pulse Ox O2 Delivery O2 Flow Rate FiO2 08/16/16 13:10 101.9 133 18 114/75 100 08/16/16 11:12 102.8 130 22 100/68 97 08/16/16 09:51 102.9 08/16/16 08:36 102.8 141 32 107/63 97 08/16/16 04:00 101.5 123 16 106/67 97 08/16/16 00:45 103.1 124 16 127/79 98 08/15/16 20:00 98.4 109 14 125/83 98 08/15/16 16:15 102.4 119 18 113/68 96 I/O 08/15/16 08/15/16 08/15/16 08/16/16 08/16/16 08/16/16 07:00 15:00 23:00 07:00 15:00 23:00 Intake Total 3980 ml Output Total 750 ml 400 ml Balance -750 ml 3580 ml Intake Oral 0 ml IV Total 3980 ml Output Urine Total 750 ml 400 ml # Voids 1 # Bowel Movements 0 Imaging Last Impressions Head CT 08/16/16 0000 Signed Impressions: Service Date/Time: Tuesday, August 16, 2016 09:55 - CONCLUSION: Chronic ischemic changes left frontal lobe possibly from evidence of previous ventriculostomy placement, unchanged. No acute intracranial abnormality. Gen Potter MD Chest X-Ray 08/15/16 1617 Signed Impressions: Service Date/Time: Monday, August 15, 2016 16:35 - CONCLUSION: No acute disease. No significant change has occurred. No significant change has occurred. Chacho Bright MD Modified Barium Swallow 08/15/16 0000 Signed Impressions: Service Date/Time: Monday, August 15, 2016 00:00 - CONCLUSION: See report above and speech pathology report Chacho Bright MD Laboratory Test 08/15/16 08/15/16 08/16/16 08/16/16 17:25 17:50 06:40 11:37 White Blood Count 16.4 TH/MM3 25.6 TH/MM3 Red Blood Count 3.59 MIL/MM3 3.80 MIL/MM3 Hemoglobin 10.0 GM/DL 10.5 GM/DL Hematocrit 31.5 % 33.6 % Mean Corpuscular Volume 87.7 FL 88.6 FL Mean Corpuscular Hemoglobin 27.8 PG 27.8 PG Mean Corpuscular Hemoglobin 31.6 % 31.3 % Concent Red Cell Distribution Width 15.1 % 15.1 % Platelet Count 376 TH/MM3 354 TH/MM3 Mean Platelet Volume 8.8 FL 8.7 FL Neutrophils (%) (Auto) 92.1 % Lymphocytes (%) (Auto) 3.6 % Monocytes (%) (Auto) 3.9 % Eosinophils (%) (Auto) 0.2 % Basophils (%) (Auto) 0.2 % Neutrophils # (Auto) 15.1 TH/MM3 Lymphocytes # (Auto) 0.6 TH/MM3 Monocytes # (Auto) 0.6 TH/MM3 Eosinophils # (Auto) 0.0 TH/MM3 Basophils # (Auto) 0.0 TH/MM3 CBC Comment DIFF FINAL Differential Comment Lactic Acid Level 0.7 mmol/L 1.0 mmol/L Urine Color YELLOW Urine Turbidity CLEAR Urine pH 6.0 Urine Specific [place] 1.023 Urine Protein NEG mg/dL Urine Glucose (UA) NEG mg/dL Urine Ketones NEG mg/dL Urine Occult Blood NEG Urine Nitrite NEG Urine Bilirubin NEG Urine Urobilinogen LESS THAN 2.0 MG/DL Urine Leukocyte Esterase NEG Urine RBC 1 /hpf Urine WBC 2 /hpf Urine Mucus FEW /lpf Microscopic Urinalysis Comment CATH-CULT NOT IND Erythrocyte Sedimentation Rate 108 mm/hr Sodium Level 141 MEQ/L Potassium Level 3.7 MEQ/L Chloride Level 107 MEQ/L Carbon Dioxide Level 23.6 MEQ/L Anion Gap 10 MEQ/L Blood Urea Nitrogen 10 MG/DL Creatinine 1.11 MG/DL Estimat Glomerular Filtration 87 ML/MIN Rate Random Glucose 113 MG/DL Calcium Level 8.6 MG/DL Date/Time Procedure Status Source Growth 08/15/16 16:03 Aerobic Blood Culture - Preliminary Resulted Blood Peripheral NO GROWTH IN 1 DAY 08/15/16 16:03 Anaerobic Blood Culture - Preliminary Resulted Blood Peripheral NO GROWTH IN 1 DAY 08/13/16 12:08 Urine Culture - Final Complete Urine Clean Catch NO GROWTH IN 48 HOURS. Physical Examination HEENT: normocephalic; atraumatic; no jaundice. ill-appearing NECK: Neck is supple, no JVD, no lymphadenopathy. CHEST: Chest is clear to auscultation and percussion. CARDIAC: Regular rate and rhythm with no murmur gallop or rubs. ABDOMEN: Soft, nondistended, nontender; no hepatosplenomegaly; bowel sounds are present in all four quadrants. EXTREMITIES: No clubbing, cyanosis, or edema. SKIN: gauze to left upper extremity LEAD TECHNICAL ARCHITECT: patient non verbal, nod to yes or no questions, alert Assessment and Plan Plan - Dysphagia- This is an unfortunate 46 year old male with of history neuro- Behcet's diagnosed at [place], left frontal CVA, bedbound, nonverbal, mural thrombus, brain abscess, meningitis, hypertension, diabetes, presents for decreased oral intake over the past 23 days, and skin tear at the left upper extremity and was found sepsis, leukocytosis of unknown source. Patient non verbal, most of HPI obtained from EMR and nurse. Gi have been consulted for PEG tube placement. ST evaluated patient and recommendation was for PEG tube as primary source and pleasure honey to thickened liquid consistency. MBS showed delayed oral emptying with tongue pumping is appreciated, no evidence of penetration or aspiration. - Sepsis/leukocytosis/febrile/ tachy cardiac - no known etiology, abx, ID on the case, WBC 25.6 - Left antecubital skin tear- wound care nurse on the case, - History of neuro-Behcet's diagnosed at [place], left frontal CVA, bedbound, nonverbal, mural thrombus, brain abscess, meningitis, hypertension, diabetes per attending Plan: - NPO mn - EGD/PEG in the am, I spoke to ( Patricia Harrell, ) risk and benefits, alternative discussed and she is agreeing - Obtain consents - He is already on abx - Supportive care - Patient seen and examined by Dr. Patterson and this note is written on his behalf. Yan Carvajal Aug 16, 2016 14:41
[2016-08-16] MEDS: ATORVASTATIN 40 MG TAB PO SCH (21:00)
[2016-08-17] VITALS (23 sets, daily range): BP systolic 90–100; BP diastolic 50–69; PULSE 82–120; RESP 17–19; TEMP 98.9–101.6; O2SAT 96–100
[2016-08-17] MEDS: VANCOMYCIN INJ 900 MG in SODIUM CHLOR 0.9% 250 ML INJ 250 ML IV SCH ×2 (04:23→17:39)
[2016-08-17] MEDS: D5-1/2 NS + KCL 10 MEQ INJ 1,000 ML IV SCH ×4 (04:24→23:19)
[2016-08-17] MEDS: METOPROLOL TARTRATE 5 MG/5 ML VIAL IV PUSH PRN (04:24)
[2016-08-17] MEDS: ACETAMINOPHEN 650 MG SUPP RECTAL PRN ×3 (04:25→21:49)
[2016-08-17 06:50] LABS: HEMATOCRIT 28.6 % (39.0-51.0); HEMOGLOBIN 9.2 GM/DL (13.0-17.0); MEAN CELL VOLUME 87.3 FL (80.0-100.0); MEAN CORPUSCULAR HGB CONC 32.1 % (32.0-36.0); MEAN PLATELET VOLUME 8.5 FL (7.0-11.0); PLATELET COUNT 355 TH/MM3 (150-450); RED BLOOD COUNT 3.27 MIL/MM3 (4.50-5.90); RED CELL DISTRIBUTION WIDTH 14.9 % (11.6-17.2); WHITE BLOOD COUNT 25.1 TH/MM3 (4.0-11.0)
[2016-08-17] MEDS: INSULIN ASPART SUPPLEMENTAL SCALE SQ SCH ×4 (07:00→21:00)
[2016-08-17 07:09] LABS: BICARBONATE 24.1 MEQ/L (21.0-32.0); CALCIUM 8.2 MG/DL (8.5-10.1); CREATININE 1.35 MG/DL (0.60-1.30)
--- NOTE | 2016-08-17 08:04 | HHI.PR ---
Objective Vitals Vital Signs Date Time Temp Pulse Resp B/P Pulse Ox O2 Delivery O2 Flow Rate FiO2 08/16/16 18:00 134 08/16/16 17:00 130 08/16/16 16:00 126 08/16/16 15:00 97.9 127 20 134/76 98 08/16/16 15:00 126 08/16/16 14:00 128 08/16/16 13:10 101.9 133 18 114/75 100 08/16/16 13:10 130 08/16/16 11:12 102.8 130 22 100/68 97 08/16/16 09:51 102.9 08/16/16 08:36 102.8 141 32 107/63 97 I/O 08/16/16 08/16/16 08/16/16 08/17/16 08/17/16 08/17/16 07:00 15:00 23:00 07:00 15:00 23:00 Intake Total 3980 ml 0 ml Output Total 400 ml 500 ml Balance 3580 ml -500 ml Intake Oral 0 ml 0 ml IV Total 3980 ml Output Urine Total 400 ml 500 ml # Voids 1 # Bowel Movements 0 0 Result Diagram: 08/17/1660408/17/16604 Objective Remarks GENERAL: Chronically ill-appearing male in no apparent distress. Moans sometimes. Can nod yes or no to some questions. CARDIOVASCULAR: Normal rate and regular rhythm without murmurs, gallops, or rubs. RESPIRATORY: Breath sounds equal and clear to auscultation bilaterally. GASTROINTESTINAL: Abdomen soft, non-distended. Normal active bowel sounds MUSCULOSKELETAL: Extremities without some evidence of contractures. NEURO: Patient is nonverbal. Noninteractive. Can nod yes or no to some questions. 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 Sepsis, unclear source. Initially thought to be due to UTI but urine culture is neg: On arrival patient was tachycardic with heart rate 131, rectal temperature 99.8. Labs remarkable for WBC 14.9 K, elevated BUN 28, lactic acid 1.7. Urinalysis shows possible UTI with bacteria. CXR images reviewed, unremarkable. Started on IV Vanco and Zosyn in the ED. Give IVF. Continue Zosyn. Urine cultures negative. One out of 4 blood cultures with staph epidermidis. ? Contaminant. Repeat blood cultures pending. Obtain brain CT given history of brain abscess and stroke. - Consult ID for assistance. Persistent fever: Could be due to sepsis but no source identified yet. ?Drug fever. Stop Zosyn for now and keep on Vancomycin which was started after he started to have fevers. Obtain urine eosinophils. Decreased Oral Intake and dysphagia: Speech therapy following. S/P barium swallow. Patient needs alternate method of feeding with PEG due to severe dysphagia. I spoke to his Lucille who agreed to PEG. GI was consulted. Intermittent Sinus Tachycardia: Patient has been on Cardizem for this but has been unable to take oral medications. Transfer to [facility] for IV medications until feeding tube can be established. DW RN, can crush medication with thickened liquid per speech. Left antecubital skin tear: Etiology unclear. Family reports that it started as a blister. Continue dressing changes per RN. Diabetes: chronic, monitor Accu-Cheks and cover with low-dose SSI. All other medical conditions stable, continue home meds. DVT Prophylaxis: teds/SCDs Problem Qualifiers (1) UTI (urinary tract infection): Qualified Code: N39.0 - Urinary tract infection without hematuria, site unspecified (2) Sepsis: Qualified Code: A41.9 - Sepsis, due to unspecified organism Leticia Garrett MD Aug 17, 2016 08:04
[2016-08-17] MEDS: SODIUM CHLORIDE 0.9% FLUSH 5 ML FLUSH FLUSH SCH ×2 (09:00→21:00)
[2016-08-17] MEDS: FAMOTIDINE 20 MG TAB PO SCH ×2 (09:00→21:00)
[2016-08-17] MEDS: DILTIAZEM-CD 120 MG CAP ER PO SCH (09:00)
--- NOTE | 2016-08-17 09:02 | MB ---
cc: KRISTA MORROW M.D. DATE OF CONSULTATION 08/17/2016 REASON FOR CONSULTATION This is a 46-year-old -[place] man with a history of fever and sepsis, possible meningitis. There is a background history of neuro Beh et's disease with associated previous stroke, apparent heart problems, brain abscess and meningitis. History of diabetes and hypertensive disease. The patient has been in the hospital since the . There has been some apparent decrease in responsiveness. CURRENT MEDICATIONS Include: 1. Diltiazem 2. Metoprolol 3. Vancomycin 4. Potassium chloride 5. Famotidine 6. Atorvastatin 7. As needed medicines. NEUROLOGICAL EXAM Showed the patient to be awake, following commands. He does respond by nodding and starts mumbling some words that are not really quite comprehensible. He has been having obvious difficulty handling oral secretions. Nurse was at the bedside and I asked the patient to be suctioned. His responses include the fact that he started pointing the number of fingers I had in front of his visual field and this seems appropriate. He nods no when I inquired about any headaches. He has a severe right hemiparesis. He appears wasted in a generalized manner. His reflexes were brisker on the right, but overall brisk diffusely with clonus at both ankles and plantar responses were extensor bilaterally right more so than left. 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 He starts flexing the knee and wiggling his toes and feet on the left, but unable to raise the left leg. Right arm right arm and leg essentially 0/5 other than increased tone. The CT brain was reviewed. There is small area of encephalomalacia left frontal. Other labs include sed rate 108, WBC today is 25.1, hemoglobin 9.2, platelets 355. Sodium and potassium normal, BUN 12, creatinine 1.35, glucose 137. Temperature of 101.6 oral. ASSESSMENT 1. Sepsis 2. Beh et's disease 3. Prior cerebrovascular event left frontal lobe with what appears to be predominantly Broca's aphasia and right hemiparesis. Apparent brain abscesses. At this point, I would agree with the lumbar puncture, although the patient seems to be denying headaches, therefore the possibility of meningitis seems less likely. An MRI of the brain will be of some additional benefit in further evaluating his cerebrovascular background and also to exclude brain abscess. This was discussed with Dr. Garrett and I will follow the neurological course. Thank you for asking us to assist in his care. MD COLT Olson/DJDebby /8:29 AM /8:41 AM
--- NOTE | 2016-08-17 09:08 | HHI.PR ---
Subjective Remarks DW RN. Patient continues to have fevers. He is awake and alert. Can follow commands. He is aphasic at baseline but can nod yes or no to questions. He denies any pain, no headache or chest pain. Objective Vitals Vital Signs Date Time Temp Pulse Resp B/P Pulse Ox O2 Delivery O2 Flow Rate FiO2 08/17/16 08:00 101.6 108 17 96/50 96 08/17/16 06:00 105 08/17/16 05:00 104 08/17/16 04:00 120 08/17/16 03:00 100 08/17/16 02:00 108 08/17/16 01:00 104 08/17/16 00:00 98 08/16/16 23:00 113 08/16/16 22:00 106 08/16/16 21:00 110 08/16/16 20:00 108 08/16/16 19:00 133 08/16/16 19:00 104.4 133 23 120/70 97 08/16/16 18:00 134 08/16/16 17:00 130 08/16/16 16:00 126 08/16/16 15:00 97.9 127 20 134/76 98 08/16/16 15:00 126 08/16/16 14:00 128 08/16/16 13:10 101.9 133 18 114/75 100 08/16/16 13:10 130 08/16/16 11:12 102.8 130 22 100/68 97 08/16/16 09:51 102.9 I/O 08/16/16 08/16/16 08/16/16 08/17/16 08/17/16 08/17/16 07:00 15:00 23:00 07:00 15:00 23:00 Intake Total 3980 ml 0 ml 2066 ml Output Total 400 ml 500 ml 500 ml Balance 3580 ml -500 ml 1566 ml Intake Oral 0 ml 0 ml 0 ml IV Total 3980 ml 2066 ml Output Urine Total 400 ml 500 ml 500 ml # Voids 1 # Bowel Movements 0 0 0 Result Diagram: 08/17/1660408/17/16604 Objective Remarks GENERAL: Chronically ill-appearing male in no apparent distress. Moans sometimes and tearful. Can nod yes or no to some questions. SKIN: left upper back and medial antecubital area with skin tears. Dried wound on the left wrist. CARDIOVASCULAR: Rate of 105 and regular rhythm without murmurs, gallops, or rubs. RESPIRATORY: Breath sounds equal and clear to auscultation bilaterally. GASTROINTESTINAL: Abdomen soft, non-distended. Normal active bowel sounds MUSCULOSKELETAL: Extremities without some evidence of contractures. NEURO: Patient is aphasic, Can nod yes or no to some questions. Follow commands. Generalized weakness. Right hemiparesis from previous stroke. 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 Sepsis, persistent fever and leukocytosis,unclear source. Initially thought to be due to UTI but urine culture is neg: On arrival patient was tachycardic with heart rate 131, rectal temperature 99.8. Labs remarkable for WBC 14.9 K, elevated BUN 28, lactic acid 1.7. Urinalysis shows possible UTI with bacteria. CXR images reviewed, unremarkable. Started on IV Vanco and Zosyn in the ED. Given IVF. One out of 4 blood cultures with staph epidermidis. ?Contaminant. Repeat blood cultures pending. Brain CT unremarkable - Discussed with ID Dr. Reyes and Neurology Dr. Jessica. Agree with obtaining MRI , LP. - I discussed with his . At baseline he can follow commands, requires help with feeding, gen weakness. R>L. His could only tell me that she gives him BP medications. Unclear if he was on steroids or other meds for Behcet. I asked her to bring the list of medications that he has been receiving at home. Persistent fever: Could be due to sepsis but no source identified yet. ?Drug fever,?Neuro. Zosyn DC yesterday. Urine eosinophils pending. MRI ordered. Neuro and ID following. Decreased Oral Intake and dysphagia: Speech therapy following. S/P barium swallow. Patient needs alternate method of feeding with PEG due to severe dysphagia. I spoke to his Lucille who agreed to PEG. GI following. Requested GI to hold off on PEG given persistent fever. Will consider NGT if we have to delay PEG longer. Acute renal insufficiency: Probably combination of pre renal azotemia and sepsis. Continue IVF. Monitor and avoid nephrotoxins. Intermittent Sinus Tachycardia: Patient has been on Cardizem for this but has been unable to take oral medications. Currently stable on Cardizem drip. Continue to monitor on tele. Plan to transition to oral in the next 24hrs. Left upper back and medial antecubital skin tear: Etiology unclear. Family reports that it started as a blister. ?pressure due to lack of turning. Continue dressing changes per RN. Diabetes: chronic, monitor Accu-Cheks and cover with low-dose SSI. All other medical conditions stable, continue home meds. DVT Prophylaxis: teds/SCDs Problem Qualifiers (1) UTI (urinary tract infection): Qualified Code: N39.0 - Urinary tract infection without hematuria, site unspecified (2) Sepsis: Qualified Code: A41.9 - Sepsis, due to unspecified organism Leticia Garrett MD Aug 17, 2016 09:08
[2016-08-17 09:34] LABS: INTERNATIONAL NORMALIZED RATIO 1.1 RATIO; PROTHROMBIN TIME - PATIENT 12.7 SEC (9.8-11.6)
--- NOTE | 2016-08-17 12:49 | PD.RAD ---
Post Procedure Progress Note Pre Procedure Diagnosis: (1) Encephalitis (2) Meningitis Post Procedure Diagnosis: (1) Encephalitis (2) Meningitis Procedure Date: Aug 17, 2016 Supervising Radiologist: Vishal Beckford JR Proceduralist/Assist: Sue Serrano RT(R), RT Milton(R) Anesthesia: Local Plan of Activity Patient to Unit: Nursing Unit Patient Condition: Good See PACS Report for procedural detail/treatment Spinal Procedure Lumbar Puncture L3-L4 Fluid Removal (CCs): 10 Fluid Description: Clear Puncture Time: 12:38 Jr. Shakeel,Vishal Sapp MD Aug 17, 2016 12:49
--- NOTE | 2016-08-17 13:41 | RADRPT ---
EXAM DATE/TIME: 08/17/2016 13:02 [facility] COMPARISON: No previous studies available for comparison. INDICATIONS : MRI clearance. MEDICAL HISTORY : Cerebrovascular disease. Hypertension. Diabetes mellitus type 2. SURGICAL HISTORY : None. ENCOUNTER: Subsequent ACUITY: 4 - 6 days PAIN SCORE: 0/10 LOCATION: Bilateral Abdomen. FINDINGS: Examination of the abdomen demonstrates a normal bowel gas pattern. No free air is identified. No o rganomegaly is evident. Osseous structures are intact. No MRI incompatible foreign body is identifi ed. CONCLUSION: No evidence of obstruction. No MRI incompatible foreign body is identified. Chacho Bright MD on August 17, 2016 at 13:38 Board Certified Radiologist. This report was verified electronically.
[2016-08-17 13:42] LABS: TOTAL PROTEIN,CSF 97.7 MG/DL (15.0-45.0)
--- NOTE | 2016-08-17 13:49 | RADRPT ---
EXAM DATE/TIME: 08/17/2016 12:26 [facility] COMPARISON: No previous studies available for comparison. INDICATIONS : Patient presents with fever and Bechet's in need of lumbar puncture to rule out possible sepsis. MEDICAL HISTORY : Neuro-Behcet's diagnosed at [place] Left frontal CVA, bedbound, nonverbal Mural thrombus Brain abscess Meningitis Hypertension Diabetes SURGICAL HISTORY : Right chest tube ENCOUNTER: Initial ACUITY: 3 days PAIN SCORE: Nonresponsive. LOCATION: N/A LUMBAR PUNCTURE TIME: 12:39 hours FLUORO TIME: 1.3 minutes ACCESS LEVEL: L3-4 FLUID: 10 cc of clear CSF was collected and sent to the laboratory for analysis. PROCEDURE : 1. Fluoroscopic guided lumbar puncture. The risks, benefits and alternatives to the procedure were explained and verbal and written consent w as obtained. The site was prepped in sterile fashion. Full sterile technique was used, including ca p, mask, sterile gloves and gown and a large sterile sheet. Hand hygiene and 2% chlorhexidine and/or betadine/alcohol prep was utilized per protocol for cutaneous antisepsis. The skin and subcutaneous tissues were infiltrated with local anesthetic solution. With fluoroscopic guidance the lumbar thecal sac was punctured at the level above. The fluid describ ed above was removed without difficulty. The patient tolerated the procedure well and there were no complications. CONCLUSION: Uncomplicated fluoroscopically guided lumbar puncture. Vishal Beckford Jr., MD on August 17, 2016 at 13:42 Board Certified Radiologist. This report was verified electronically.
[2016-08-17 14:04] LABS: RBC TUBE #1 0 /MM3; SUPERNATE COLOR TUBE #1 CLEAR (CLEAR); WBC TUBE #1 45 /MM3 (0-10)
[2016-08-17 14:05] LABS: CSF LYMPHOCYTES 96 %; CSF MONOCYTES 4 %; CSF NEUTROPHILS 0 %
--- NOTE | 2016-08-17 14:07 | RADRPT ---
EXAM DATE/TIME: 08/17/2016 13:28 [facility] COMPARISON: MRI BRAIN W & W/O CONTRAST, January 20, 2016, 16:43. CT BRAIN W/O CONTRAST, August 16, 2016, 9:55. INDICATIONS : Meningitis. Sepsis. Persistent fever. CONTRAST: 13 cc Omniscan (gadodiamide) IV MEDICAL HISTORY : Hypertension. Diabetes. SURGICAL HISTORY : Abdominal. ENCOUNTER: Subsequent ACUITY: 3 day PAIN SCORE: Nonresponsive. LOCATION: cranial TECHNIQUE: Multiplanar, multisequence MRI of the brain was performed both prior to and following the administrat ion of paramagnetic contrast. FINDINGS: Examination essentially stable relative to prior study 20 January 2016. The brain stem abnormalities sim ply represent low signal intensity and encephalomalacia in the brain stem with no diffusion abnormali ty. No acute intracranial hemorrhage or cerebral defect or mass and midline structures as well as the transabdominal landmarks are situated. CONCLUSION: Remote long-standing areas of abnormality in the brainstem and middle cerebellar peduncle consistent with remote infarcts or contusion. No acute intracranial abnormality. Chcaho Bright MD on August 17, 2016 at 14:02 Board Certified Radiologist. This report was verified electronically.
--- NOTE | 2016-08-17 15:43 | HHI.GIFU ---
Subjective Remarks Resting in bed. Nurse reports that he continues to have high fevers and went for LP earlier today. Objective Vitals I&O Vital Signs Date Time Temp Pulse Resp B/P Pulse Ox O2 Delivery O2 Flow Rate FiO2 08/17/16 11:00 105 08/17/16 11:00 99.1 110 19 90/69 100 08/17/16 10:00 104 08/17/16 09:00 106 08/17/16 08:00 108 08/17/16 08:00 101.6 108 17 96/50 96 08/17/16 07:00 105 08/17/16 06:00 105 08/17/16 05:00 104 08/17/16 04:00 120 08/17/16 03:00 100 08/17/16 02:00 108 08/17/16 01:00 104 08/17/16 00:00 98 08/16/16 23:00 113 08/16/16 22:00 106 08/16/16 21:00 110 08/16/16 20:00 108 08/16/16 19:00 133 08/16/16 19:00 104.4 133 23 120/70 97 08/16/16 18:00 134 08/16/16 17:00 130 08/16/16 16:00 126 I/O 08/16/16 08/16/16 08/16/16 08/17/16 08/17/16 08/17/16 07:00 15:00 23:00 07:00 15:00 23:00 Intake Total 3980 ml 0 ml 2066 ml Output Total 400 ml 500 ml 500 ml Balance 3580 ml -500 ml 1566 ml Intake Oral 0 ml 0 ml 0 ml IV Total 3980 ml 2066 ml Output Urine Total 400 ml 500 ml 500 ml # Voids 1 # Bowel Movements 0 0 0 Laboratory Laboratory Tests Test 08/17/16 08/17/16 08/17/16 06:05 08:16 12:38 White Blood Count 25.1 Red Blood Count 3.27 Hemoglobin 9.2 Hematocrit 28.6 Mean Corpuscular Volume 87.3 Mean Corpuscular Hemoglobin 28.0 Mean Corpuscular Hemoglobin 32.1 Concent Red Cell Distribution Width 14.9 Platelet Count 355 Mean Platelet Volume 8.5 Sodium Level 141 Potassium Level 3.5 Chloride Level 108 Carbon Dioxide Level 24.1 Anion Gap 9 Blood Urea Nitrogen 12 Creatinine 1.35 Estimat Glomerular Filtration 70 Rate Random Glucose 137 Calcium Level 8.2 Vancomycin Level Trough 38.4 Prothrombin Time 12.7 Prothromb Time International 1.1 Ratio Activated Partial 40.0 Thromboplast Time CSF Volume (Tube 1) 2.0 CSF Supernatant Color (tube 1) CLEAR CSF WBC (Tube 1) 45 CSF RBC (Tube 1) 0 CSF Volume (Tube 2) 2.4 CSF Supernatant Color (tube 2) CLEAR CSF Gross Blood (Tube 2) 0 CSF Volume (Tube 3) 2.0 CSF Supernatant Color (tube 3) CLEAR CSF Gross Blood (Tube 3) 0 CSF Volume (Tube 4) 3.0 CSF Supernatant Color (tube 4) CLEAR CSF Gross Blood (Tube 4) TRACE CSF Neutrophils 0 CSF Lymphocytes 96 CSF Monocytes 4 CSF Glucose 64 CSF Total Protein 97.7 Date/Time Procedure Status Source Growth 08/17/16 12:38 Gram Stain - Final Resulted Cerebral Spinal Fluid Lumbar Puncture 08/17/16 12:38 CSF Culture Resulted Cerebral Spinal Fluid Lumbar Puncture Pending 08/17/16 12:38 Fungal Smear - Final Resulted Cerebral Spinal Fluid Lumbar Puncture NO FUNGAL ELEMENTS SEEN. 08/17/16 12:38 Fungal Culture Resulted Cerebral Spinal Fluid Lumbar Puncture Pending 08/17/16 07:56 Gram Stain Ordered Cerebral Spinal Fluid Lumbar Puncture Pending 08/17/16 07:56 CSF Culture Ordered Cerebral Spinal Fluid Lumbar Puncture Pending 08/15/16 16:03 Aerobic Blood Culture - Preliminary Resulted Blood Peripheral NO GROWTH IN 2 DAYS 08/15/16 16:03 Anaerobic Blood Culture - Preliminary Resulted Blood Peripheral NO GROWTH IN 2 DAYS 08/13/16 12:08 Urine Culture - Final Complete Urine Clean Catch NO GROWTH IN 48 HOURS. Imaging Last Impressions Lumbar Puncture Fluoroscopy 08/17/16 0000 Signed Impressions: Service Date/Time: Wednesday, August 17, 2016 12:26 - CONCLUSION: Uncomplicated fluoroscopically guided lumbar puncture. Vishal Beckford Jr., MD Brain MRI 08/17/16 0000 Signed Impressions: Service Date/Time: Wednesday, August 17, 2016 13:28 - CONCLUSION: Remote long-standing areas of abnormality in the brainstem and middle cerebellar peduncle consistent with remote infarcts or contusion. No acute intracranial abnormality. Chacho Bright MD Abdomen X-Ray 08/17/16 0000 Signed Impressions: Service Date/Time: Wednesday, August 17, 2016 13:02 - CONCLUSION: No evidence of obstruction. No MRI incompatible foreign body is identified. Chacho Bright MD Head CT 08/16/16 0000 Signed Impressions: Service Date/Time: Tuesday, August 16, 2016 09:55 - CONCLUSION: Chronic ischemic changes left frontal lobe possibly from evidence of previous ventriculostomy placement, unchanged. No acute intracranial abnormality. Gen Potter MD Chest X-Ray 08/15/16 1617 Signed Impressions: Service Date/Time: Monday, August 15, 2016 16:35 - CONCLUSION: No acute disease. No significant change has occurred. No significant change has occurred. Chacho Bright MD Modified Barium Swallow 08/15/16 0000 Signed Impressions: Service Date/Time: Monday, August 15, 2016 00:00 - CONCLUSION: See report above and speech pathology report Chacho Bright MD Physical Exam HEENT: Normocephalic; atraumatic; no jaundice. CHEST: Resp even/unlabored, diminished bases CARDIAC: RRR ABDOMEN: Soft, nondistended, nontender; no hepatosplenomegaly; bowel sounds are present in all four quadrants. EXTREMITIES: No clubbing, cyanosis, or edema. SKIN: Normal; no rash; no jaundice. [employer]IC: Lethargic Assessment and Plan Plan ASSESSMENT: - Dysphagia. 46 year old male with of history neuro-Behcet's diagnosed at [place] , left frontal CVA, mural thrombus, brain abscess, meningitis, hypertension, diabetes, presents for decreased oral intake over the past 23 days, and skin tear at the left upper extremity and was found sepsis, leukocytosis of unknown source. MBS----> severe oral/pharyngeal phase dysphagia. Will need PEG as primary nutrition, pleasure feeds of liquids thickened to honey consistency tsp by tsp and/or purees. GI consulted for PEG, but patient continues to have high fevers and went for LP today. Will plan for PEG tube placement once stable. - Sepsis/leukocytosis/febrile/ tachy cardiac - no known etiology, abx, ID on the case, S/P LP today, results pending. - Left antecubital skin tear- wound care nurse on the case, - History of neuro-Behcet's diagnosed at [place], left frontal CVA, bedbound, nonverbal, mural thrombus, brain abscess, meningitis, hypertension, diabetes per attending Plan: - Puree, honey thickened liquids for pleasure - ST - Abx per ID - Plan for egd with peg tube placement once stable - Supportive care - Patient seen and examined by Dr. Patterson and this note is written on his behalf. Marlys Rivers Aug 17, 2016 15:43
[2016-08-17] MEDS: cefTRIAXone INJ 2,000 MG in SODIUM CHLORIDE 0.9% INJ 100 ML IV SCH (17:40)
--- NOTE | 2016-08-17 19:50 | PD.ID.CON ---
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 Patient has reportedly been evaluated at [facility] and is on chronic steroids. Patient also underwent rehab but does not appear to have changed in fact from review of notes appears worsening. With this background patient was admitted. All the information obtained from the EMR and ER physicians know as the patient is nonverbal and unable to provide any history. Apparently, the patient lives at home with his sister who is his acid mixer. She reported the patient has had decreased oral intake over the past few days. Also complains of a skin tear at the left antecubital space, unknown how the injury occurred. Upon arrival to the ER, patient was tachycardic with heart rate 131, rectal temperature 99.8. Labs remarkable for WBC 14.9 K, elevated BUN 28, lactic acid 1.7. Urinalysis shows possible UTI with bacteria. Blood cultures collected. He was started on IV Vanco and Zosyn. Due to worsening mentation ID was consulted. I spoke to yday and asked to get an LP, MRI brain and Neuro consult given the history and findings we discussed. Review of Systems ROS Limitations: Clinical Condition (Aphasic) Past Family Social History Allergies: Coded Allergies: No Known Allergies (Unverified , 08/17/16) Past Medical History neuro-Behcet's diagnosed at [place] left frontal CVA, bedbound, nonverbal mural thrombus brain abscess meningitis hypertension diabetes Past Surgical History Right chest tube Brain biopsy ? for autoimmune disorder. Reported Medications Could not be obtained. Reported Meds & Active Scripts Active Active Prescriptions or Reported Medications Unobtainable Active Ordered Medications Current Medications Medications (Trade) Dose Ordered Sig/Beau Route Start Time Stop Time Status Last Admin (Cardizem Cd) 120 mg DAILY PO 08/13/16 16:00 (Pepcid) 20 mg BID PO 08/13/16 21:00 (D50w (Vial) Inj) 25 ml UNSCH PRN IV PUSH 08/13/16 13:45 (Glucagon Inj) 1 mg UNSCH PRN OTHER 08/13/16 13:45 (NS Flush) 2 ml UNSCH PRN FLUSH 08/13/16 14:00 (NS Flush) 2 ml BID FLUSH 08/13/16 21:00 08/16/16 20:30 (Tylenol) 650 mg Q4H PRN PO 08/13/16 14:00 (Zofran Inj) 4 mg Q6H PRN IVP 08/13/16 14:00 (Narcan Inj) 0.4 mg UNSCH PRN IV 08/13/16 14:00 Atorvastatin Calcium 40 mg 40 mg HS PO 08/13/16 21:00 (D5-1/2 NS + KCl 10 Meq Inj) 1,000 ml @ 150 mls/hr Q6H40M IV 08/14/16 13:30 08/17/16 17:40 Acetaminophen 650 mg 650 mg Q6H PRN RECTAL 08/15/16 16:30 08/17/16 15:23 Pharmacy Profile Note 0 ml @ 0 mls/hr UNSCH OTHER 08/15/16 16:30 Vancomycin HCl 900 mg/Sodium Chloride 259 ml @ 250 mls/hr Q12H IV 08/16/16 05:00 08/17/16 17:39 Diltiazem HCl 125 mg/Sodium Chloride 125 ml @ 0 mls/hr TITRATE IV 08/16/16 17:30 08/16/16 18:37 (Rocephin Inj/NS Inj) 100 ml @ 200 mls/hr Q12H IV 08/17/16 17:00 08/17/16 17:40 Family History could not be obtained. Social History Sister is the healthcare receptionist. Physical Exam Vital Signs Vital Signs Date Time Temp Pulse Resp B/P Pulse Ox O2 Delivery O2 Flow Rate FiO2 08/17/16 18:00 102 08/17/16 17:00 101 08/17/16 16:00 99 08/17/16 15:00 101.1 100 19 100/64 100 08/17/16 14:00 103 08/17/16 13:00 104 08/17/16 11:00 105 08/17/16 11:00 99.1 110 19 90/69 100 08/17/16 10:00 104 08/17/16 09:00 106 08/17/16 08:00 108 08/17/16 08:00 101.6 108 17 96/50 96 08/17/16 07:00 105 08/17/16 06:00 105 08/17/16 05:00 104 08/17/16 04:00 120 08/17/16 03:00 100 08/17/16 02:00 108 08/17/16 01:00 104 08/17/16 00:00 98 08/16/16 23:00 113 08/16/16 22:00 106 08/16/16 21:00 110 08/16/16 20:00 108 Physical Exam GENERAL: Poorly nourished, poorly-developed patient, in no apparent distress. SKIN: No rashes. Ecchymosis and LUE skin breaks noted. HEAD: Atraumatic. Normocephalic. No temporal or scalp tenderness. EYES: Pupils equal round and reactive. Extraocular motions intact. No scleral icterus. No injection or drainage. ENT: Nose without bleeding, purulent drainage or septal hematoma. Throat without erythema, tonsillar hypertrophy or exudate. Uvula midline. Airway patent. NECK: Trachea midline. Supple, nontender, no meningeal signs. CARDIOVASCULAR: HS audible. No murmur. RESPIRATORY: Clear to auscultation. Breath sounds equal bilaterally. GASTROINTESTINAL: Abdomen soft, non-tender, nondistended. MUSCULOSKELETAL: Extremities without clubbing, cyanosis, or edema. NEUROLOGICAL: Awake and alert. Aphasic. LE weakness but able to flex both limbs minimally. Psych: tearful and at times frustrated due to inability to express himself. IV line sites with no e.o infection. Laboratory Laboratory Tests Test 08/17/16 08/17/16 08/17/16 08/17/16 06:05 08:16 12:38 16:30 White Blood Count 25.1 Red Blood Count 3.27 Hemoglobin 9.2 Hematocrit 28.6 Mean Corpuscular Volume 87.3 Mean Corpuscular Hemoglobin 28.0 Mean Corpuscular Hemoglobin 32.1 Concent Red Cell Distribution Width 14.9 Platelet Count 355 Mean Platelet Volume 8.5 Sodium Level 141 Potassium Level 3.5 Chloride Level 108 Carbon Dioxide Level 24.1 Anion Gap 9 Blood Urea Nitrogen 12 Creatinine 1.35 Estimat Glomerular Filtration 70 Rate Random Glucose 137 Calcium Level 8.2 Vancomycin Level Trough 38.4 17.3 Prothrombin Time 12.7 Prothromb Time International 1.1 Ratio Activated Partial 40.0 Thromboplast Time CSF Volume (Tube 1) 2.0 CSF Supernatant Color (tube 1) CLEAR CSF WBC (Tube 1) 45 CSF RBC (Tube 1) 0 CSF Volume (Tube 2) 2.4 CSF Supernatant Color (tube 2) CLEAR CSF Gross Blood (Tube 2) 0 CSF Volume (Tube 3) 2.0 CSF Supernatant Color (tube 3) CLEAR CSF Gross Blood (Tube 3) 0 CSF Volume (Tube 4) 3.0 CSF Supernatant Color (tube 4) CLEAR CSF Gross Blood (Tube 4) TRACE CSF Neutrophils 0 CSF Lymphocytes 96 CSF Monocytes 4 CSF Glucose 64 CSF Total Protein 97.7 Date/Time Procedure Status Source Growth 08/17/16 12:38 Gram Stain - Final Resulted Cerebral Spinal Fluid Lumbar Puncture 08/17/16 12:38 CSF Culture Resulted Cerebral Spinal Fluid Lumbar Puncture Pending 08/17/16 12:38 Fungal Smear - Final Resulted Cerebral Spinal Fluid Lumbar Puncture NO FUNGAL ELEMENTS SEEN. 08/17/16 12:38 Fungal Culture Resulted Cerebral Spinal Fluid Lumbar Puncture Pending 08/17/16 07:56 Gram Stain Ordered Cerebral Spinal Fluid Lumbar Puncture Pending 08/17/16 07:56 CSF Culture Ordered Cerebral Spinal Fluid Lumbar Puncture Pending 08/15/16 16:03 Aerobic Blood Culture - Preliminary Resulted Blood Peripheral NO GROWTH IN 2 DAYS 08/15/16 16:03 Anaerobic Blood Culture - Preliminary Resulted Blood Peripheral NO GROWTH IN 2 DAYS 08/13/16 12:08 Urine Culture - Final Complete Urine Clean Catch NO GROWTH IN 48 HOURS. Result Diagram: 08/17/16 0605 08/17/16 0605 Imaging Last Impressions Lumbar Puncture Fluoroscopy 08/17/16 0000 Signed Impressions: Service Date/Time: Wednesday, August 17, 2016 12:26 - CONCLUSION: Uncomplicated fluoroscopically guided lumbar puncture. Vishal Beckford Jr., MD Brain MRI 08/17/16 0000 Signed Impressions: Service Date/Time: Wednesday, August 17, 2016 13:28 - CONCLUSION: Remote long-standing areas of abnormality in the brainstem and middle cerebellar peduncle consistent with remote infarcts or contusion. No acute intracranial abnormality. Chacho Bright MD Abdomen X-Ray 08/17/16 0000 Signed Impressions: Service Date/Time: Wednesday, August 17, 2016 13:02 - CONCLUSION: No evidence of obstruction. No MRI incompatible foreign body is identified. Chacho Bright MD Head CT 08/16/16 0000 Signed Impressions: Service Date/Time: Tuesday, August 16, 2016 09:55 - CONCLUSION: Chronic ischemic changes left frontal lobe possibly from evidence of previous ventriculostomy placement, unchanged. No acute intracranial abnormality. Gen Potter MD Chest X-Ray 08/15/16 1617 Signed Impressions: Service Date/Time: Monday, August 15, 2016 16:35 - CONCLUSION: No acute disease. No significant change has occurred. No significant change has occurred. Chacho Bright MD Modified Barium Swallow 08/15/16 0000 Signed Impressions: Service Date/Time: Monday, August 15, 2016 00:00 - CONCLUSION: See report above and speech pathology report Chacho Bright MD Assessment and Plan Assessment and Plan Possible Meningoencephalitis. Staph epi bacteremia: ? contaminant. H/o Neuro-Behcet's disease H/o Meningitis and Brain abscess. Aphasic Recs Start Ceftriaxone IV Start Vanco IV Meningitis doses. MRI report reviewed. LP reviewed. Await cultures d/w Berna Taylor MD Aug 17, 2016 19:50
[2016-08-17] MEDS: ATORVASTATIN 40 MG TAB PO SCH (21:00)
[2016-08-18] VITALS (24 sets, daily range): BP systolic 86–109; BP diastolic 54–72; PULSE 75–92; RESP 14–16; TEMP 97.4–98.9; O2SAT 98–100
[2016-08-18] MEDS: cefTRIAXone INJ 2,000 MG in SODIUM CHLORIDE 0.9% INJ 100 ML IV SCH ×2 (05:13→15:19)
[2016-08-18] MEDS: VANCOMYCIN INJ 900 MG in SODIUM CHLOR 0.9% 250 ML INJ 250 ML IV SCH (05:13)
[2016-08-18] MEDS: D5-1/2 NS + KCL 10 MEQ INJ 1,000 ML IV SCH ×3 (05:33→15:53)
[2016-08-18 05:54] LABS: HEMATOCRIT 29.7 % (39.0-51.0); HEMOGLOBIN 9.4 GM/DL (13.0-17.0); MEAN CELL VOLUME 88.2 FL (80.0-100.0); MEAN CORPUSCULAR HGB CONC 31.8 % (32.0-36.0); MEAN PLATELET VOLUME 8.4 FL (7.0-11.0); PLATELET COUNT 371 TH/MM3 (150-450); RED BLOOD COUNT 3.36 MIL/MM3 (4.50-5.90); WHITE BLOOD COUNT 19.2 TH/MM3 (4.0-11.0)
[2016-08-18] MEDS: INSULIN ASPART SUPPLEMENTAL SCALE SQ SCH ×4 (06:06→21:00)
[2016-08-18 06:19] LABS: BICARBONATE 25.2 MEQ/L (21.0-32.0); CALCIUM 8.8 MG/DL (8.5-10.1); CREATININE 1.67 MG/DL (0.60-1.30)
[2016-08-18] MEDS: SODIUM CHLORIDE 0.9% FLUSH 5 ML FLUSH FLUSH SCH ×2 (08:03→21:00)
[2016-08-18] MEDS: FAMOTIDINE 20 MG TAB PO SCH ×2 (08:03→21:00)
[2016-08-18] MEDS: DILTIAZEM-CD 120 MG CAP ER PO SCH (08:03)
--- NOTE | 2016-08-18 15:03 | HHI.PR ---
Subjective Remarks Patient cannot do yes or no to questions. When asked if he is feeling better he nodded yes. He admits that he has problems swallowing. No more fevers. Heart rate controlled. Objective Vitals Vital Signs Date Time Temp Pulse Resp B/P Pulse Ox O2 Delivery O2 Flow Rate FiO2 08/18/16 12:00 98.5 91 16 98/69 99 08/18/16 12:00 90 08/18/16 11:00 92 08/18/16 10:00 92 08/18/16 10:00 103/66 08/18/16 09:00 90 08/18/16 08:00 90 08/18/16 08:00 98.5 91 14 86/54 99 08/18/16 07:00 88 08/18/16 06:00 84 08/18/16 05:00 90 08/18/16 04:00 88 08/18/16 03:23 97.4 90 98/60 100 08/18/16 03:00 90 08/18/16 02:00 88 08/18/16 01:00 84 08/18/16 00:37 97.8 89 97/67 99 08/18/16 00:00 82 08/17/16 23:00 83 08/17/16 22:00 82 08/17/16 21:00 88 08/17/16 20:00 96 08/17/16 19:00 98 08/17/16 19:00 98.9 98 92/65 98 08/17/16 18:00 102 08/17/16 17:00 101 08/17/16 16:00 99 I/O 08/17/16 08/17/16 08/17/16 08/18/16 08/18/16 08/18/16 07:00 15:00 23:00 07:00 15:00 23:00 Intake Total 2066 ml 0 ml 1500 ml Output Total 500 ml 1150 ml 550 ml Balance 1566 ml -1150 ml 950 ml Intake Oral 0 ml 0 ml IV Total 2066 ml 1500 ml Output Urine Total 500 ml 550 ml Stool Total 1150 ml # Bowel Movements 0 Result Diagram: 08/18/16 0508 08/18/16 0508 Objective Remarks GENERAL: Chronically ill-appearing male in no apparent distress. Can nod yes or no to some questions. SKIN: left upper back and medial antecubital area with skin tears. Dried wound on the left wrist. CARDIOVASCULAR: Normal rate and regular rhythm without murmurs, gallops, or rubs. RESPIRATORY: Breath sounds equal and clear to auscultation bilaterally. GASTROINTESTINAL: Abdomen soft, non-distended. Normal active bowel sounds MUSCULOSKELETAL: Extremities without some evidence of contractures. NEURO: Patient is aphasic, Can nod yes or no to some questions. Follow commands. Generalized weakness. Right hemiparesis from previous stroke. 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 Sepsis, persistent fever and leukocytosis,unclear source. Appear to be improving after Rocephin started. Initially thought to be due to UTI but urine culture is neg: On arrival patient was tachycardic with heart rate 131, rectal temperature 99.8. Labs remarkable for WBC 14.9 K, elevated BUN 28, lactic acid 1.7. Urinalysis shows possible UTI with bacteria. CXR images reviewed, unremarkable. Started on IV Vanco and Zosyn in the ED. Given IVF. One out of 4 blood cultures with staph epidermidis. ?Contaminant. Repeat blood cultures unremarkable. Brain CT and MRI unremarkable. Status post LP. CSF studies pending - Patient appear to be improving. Continue antibiotics. Continue to monitor Fever for 24 hours: Appear to have resolved. Could be due to sepsis but no source identified yet. ?Drug fever,?Neuro. Zosyn DC. Decreased Oral Intake and dysphagia: Speech therapy following. S/P barium swallow. Patient needs alternate method of feeding with PEG due to severe dysphagia. I spoke to his Lucille who agreed to PEG. GI following. PEG was held because the patient was not stable. He has improved. Appreciate GI following. Appear to be stable enough for PEG placement. Acute renal insufficiency: Probably combination of pre renal azotemia and sepsis. Insensible loss due to fever. Not taking anything oral Continue IVF. Monitor and avoid nephrotoxins. Intermittent Sinus Tachycardia: Patient has been on Cardizem for this but has been unable to take oral medications. Heart rate is now normal. Metoprolol IV as needed for heart rate above 120. Left upper back and medial antecubital skin tear: Etiology unclear. Family reports that it started as a blister. ?pressure due to lack of turning. Continue dressing changes per RN. Diabetes: chronic, monitor Accu-Cheks and cover with low-dose SSI. All other medical conditions stable, continue home meds. DVT Prophylaxis: teds/SCDs Problem Qualifiers (1) UTI (urinary tract infection): Qualified Code: N39.0 - Urinary tract infection without hematuria, site unspecified Leticia Garrett MD Aug 18, 2016 15:03
--- NOTE | 2016-08-18 15:49 | HHI.GIFU ---
Subjective Remarks Patient is resting in bed, nonverbal, no fevers today, he is medically stable to have PEG tube per Dr. Kohli, will plan in the am, this was discussed with nurse Objective Vitals I&O Vital Signs Date Time Temp Pulse Resp B/P Pulse Ox O2 Delivery O2 Flow Rate FiO2 08/18/16 15:00 82 08/18/16 14:00 78 08/18/16 13:00 84 08/18/16 12:00 98.5 91 16 98/69 99 08/18/16 12:00 90 08/18/16 11:00 92 08/18/16 10:00 92 08/18/16 10:00 103/66 08/18/16 09:00 90 08/18/16 08:00 90 08/18/16 08:00 98.5 91 14 86/54 99 08/18/16 07:00 88 08/18/16 06:00 84 08/18/16 05:00 90 08/18/16 04:00 88 08/18/16 03:23 97.4 90 98/60 100 08/18/16 03:00 90 08/18/16 02:00 88 08/18/16 01:00 84 08/18/16 00:37 97.8 89 97/67 99 08/18/16 00:00 82 08/17/16 23:00 83 08/17/16 22:00 82 08/17/16 21:00 88 08/17/16 20:00 96 08/17/16 19:00 98 08/17/16 19:00 98.9 98 92/65 98 08/17/16 18:00 102 08/17/16 17:00 101 08/17/16 16:00 99 I/O 08/17/16 08/17/16 08/17/16 08/18/16 08/18/16 08/18/16 07:00 15:00 23:00 07:00 15:00 23:00 Intake Total 2066 ml 0 ml 1500 ml Output Total 500 ml 1150 ml 550 ml Balance 1566 ml -1150 ml 950 ml Intake Oral 0 ml 0 ml IV Total 2066 ml 1500 ml Output Urine Total 500 ml 550 ml Stool Total 1150 ml # Bowel Movements 0 Laboratory Laboratory Tests Test 08/17/16 08/18/16 16:30 05:08 Vancomycin Level Trough 17.3 White Blood Count 19.2 Red Blood Count 3.36 Hemoglobin 9.4 Hematocrit 29.7 Mean Corpuscular Volume 88.2 Mean Corpuscular Hemoglobin 28.0 Mean Corpuscular Hemoglobin 31.8 Concent Red Cell Distribution Width 15.0 Platelet Count 371 Mean Platelet Volume 8.4 Sodium Level 145 Potassium Level 3.5 Chloride Level 111 Carbon Dioxide Level 25.2 Anion Gap 9 Blood Urea Nitrogen 13 Creatinine 1.67 Estimat Glomerular Filtration 54 Rate Random Glucose 129 Calcium Level 8.8 Date/Time Procedure Status Source Growth 08/17/16 12:38 Gram Stain - Final Resulted Cerebral Spinal Fluid Lumbar Puncture 08/17/16 12:38 CSF Culture - Preliminary Resulted Cerebral Spinal Fluid Lumbar Puncture NO GROWTH IN 24 HOURS. 08/17/16 12:38 Fungal Smear - Final Resulted Cerebral Spinal Fluid Lumbar Puncture NO FUNGAL ELEMENTS SEEN. 08/17/16 12:38 Fungal Culture Resulted Cerebral Spinal Fluid Lumbar Puncture Pending 08/17/16 07:56 Gram Stain Ordered Cerebral Spinal Fluid Lumbar Puncture Pending 08/17/16 07:56 CSF Culture Ordered Cerebral Spinal Fluid Lumbar Puncture Pending 08/15/16 16:03 Aerobic Blood Culture - Preliminary Resulted Blood Peripheral NO GROWTH IN 3 DAYS 08/15/16 16:03 Anaerobic Blood Culture - Preliminary Resulted Blood Peripheral NO GROWTH IN 3 DAYS Imaging Last Impressions Lumbar Puncture Fluoroscopy 08/17/16 0000 Signed Impressions: Service Date/Time: Wednesday, August 17, 2016 12:26 - CONCLUSION: Uncomplicated fluoroscopically guided lumbar puncture. Vishal Beckford Jr., MD Brain MRI 08/17/16 0000 Signed Impressions: Service Date/Time: Wednesday, August 17, 2016 13:28 - CONCLUSION: Remote long-standing areas of abnormality in the brainstem and middle cerebellar peduncle consistent with remote infarcts or contusion. No acute intracranial abnormality. Chacho Bright MD Abdomen X-Ray 08/17/16 0000 Signed Impressions: Service Date/Time: Wednesday, August 17, 2016 13:02 - CONCLUSION: No evidence of obstruction. No MRI incompatible foreign body is identified. Chacho Bright MD Head CT 08/16/16 0000 Signed Impressions: Service Date/Time: Tuesday, August 16, 2016 09:55 - CONCLUSION: Chronic ischemic changes left frontal lobe possibly from evidence of previous ventriculostomy placement, unchanged. No acute intracranial abnormality. Gen Potter MD Chest X-Ray 08/15/16 1617 Signed Impressions: Service Date/Time: Monday, August 15, 2016 16:35 - CONCLUSION: No acute disease. No significant change has occurred. No significant change has occurred. Chacho Bright MD Modified Barium Swallow 08/15/16 0000 Signed Impressions: Service Date/Time: Monday, August 15, 2016 00:00 - CONCLUSION: See report above and speech pathology report Chacho Bright MD Physical Exam HEENT: Normocephalic; atraumatic; no jaundice. CHEST: Resp even/unlabored, diminished bases CARDIAC: RRR ABDOMEN: Soft, nondistended, nontender; no hepatosplenomegaly; bowel sounds are present in all four quadrants. EXTREMITIES: No clubbing, cyanosis, or edema. SKIN: Normal; no rash; no jaundice. SHIP SCRAPER: Lethargic Assessment and Plan Plan ASSESSMENT: - Dysphagia. 46 year old male with of history neuro-Behcet's diagnosed at [place] , left frontal CVA, mural thrombus, brain abscess, meningitis, hypertension, diabetes, presents for decreased oral intake over the past 23 days, and skin tear at the left upper extremity and was found sepsis, leukocytosis of unknown source. MBS----> severe oral/pharyngeal phase dysphagia. Will need PEG as primary nutrition, pleasure feeds of liquids thickened to honey consistency tsp by tsp and/or purees. GI consulted for PEG, but patient No fevers today, he is stable according to Dr. Kohli, Will plan for PEG tube placement in the am - Sepsis/leukocytosis/febrile/ tachy cardiac - no known etiology, abx, ID on the case, S/P LP , results pending. - Left antecubital skin tear- wound care nurse on the case, - History of neuro-Behcet's diagnosed at [place], left frontal CVA, bedbound, nonverbal, mural thrombus, brain abscess, meningitis, hypertension, diabetes per attending Plan: - Puree, honey thickened liquids for pleasure - ST - NPO mn - Plan for egd with peg tube placement in the am, medically cleared by Dr. Kohli - Abx per ID - Supportive care - Patient seen and examined by Dr. Patterson and this note is written on his behalf. Yan Carvajal Aug 18, 2016 15:49
--- NOTE | 2016-08-18 17:28 | HHI.PR ---
Review/Management Daily Summary 08/18 discussed with RN, stable overall data seen, lp abnormal csf meningites/encephalitis? infectious dx on board will follow peripherally Subjective Subjective Comments No acute events reported Active Medications Current Medications Medications (Trade) Dose Ordered Sig/Beau Route Start Time Stop Time Status Last Admin (Pepcid) 20 mg BID PO 08/13/16 21:00 (D50w (Vial) Inj) 25 ml UNSCH PRN IV PUSH 08/13/16 13:45 (Glucagon Inj) 1 mg UNSCH PRN OTHER 08/13/16 13:45 (NS Flush) 2 ml UNSCH PRN FLUSH 08/13/16 14:00 (NS Flush) 2 ml BID FLUSH 08/13/16 21:00 08/17/16 21:00 (Tylenol) 650 mg Q4H PRN PO 08/13/16 14:00 (Zofran Inj) 4 mg Q6H PRN IVP 08/13/16 14:00 (Narcan Inj) 0.4 mg UNSCH PRN IV 08/13/16 14:00 Atorvastatin Calcium 40 mg 40 mg HS PO 08/13/16 21:00 (D5-1/2 NS + KCl 10 Meq Inj) 1,000 ml @ 150 mls/hr Q6H40M IV 08/14/16 13:30 08/18/16 15:53 Acetaminophen 650 mg 650 mg Q6H PRN RECTAL 08/15/16 16:30 08/17/16 21:49 Pharmacy Profile Note 0 ml @ 0 mls/hr UNSCH OTHER 08/15/16 16:30 Vancomycin HCl 900 mg/Sodium Chloride 259 ml @ 250 mls/hr Q12H IV 08/16/16 05:00 Hold 08/18/16 05:13 Diltiazem HCl 125 mg/Sodium Chloride 125 ml @ 0 mls/hr TITRATE IV 08/16/16 17:30 08/16/16 18:37 (Rocephin Inj/NS Inj) 100 ml @ 200 mls/hr Q12H IV 08/17/16 17:00 08/18/16 15:19 (Lopressor Inj) 5 mg Q6H PRN IV PUSH 08/18/16 15:15 Allergies Allergies Coded Allergies No Known Allergies (Unverified08/17/16) Review of Systems All other ROS: ROS reviewed as documented in chart Exam I&O / VS 08/17/16 08/17/16 08/18/16 14:59 22:59 06:59 Intake Total 0 ml 1500 ml Output Total 1150 ml 550 ml Balance -1150 ml 950 ml Intake Oral 0 ml IV Total 1500 ml Output Urine Total 550 ml Stool Total 1150 ml Vital Signs Date Time Temp Pulse Resp B/P Pulse Ox O2 Delivery O2 Flow Rate FiO2 08/18/16 16:00 98.9 88 16 108/70 98 08/18/16 16:00 82 08/18/16 15:00 82 08/18/16 14:00 78 08/18/16 13:00 84 08/18/16 12:00 98.5 91 16 98/69 99 08/18/16 12:00 90 08/18/16 11:00 92 08/18/16 10:00 92 08/18/16 10:00 103/66 08/18/16 09:00 90 08/18/16 08:00 90 08/18/16 08:00 98.5 91 14 86/54 99 08/18/16 07:00 88 08/18/16 06:00 84 08/18/16 05:00 90 08/18/16 04:00 88 08/18/16 03:23 97.4 90 98/60 100 08/18/16 03:00 90 08/18/16 02:00 88 08/18/16 01:00 84 08/18/16 00:37 97.8 89 97/67 99 08/18/16 00:00 82 08/17/16 23:00 83 08/17/16 22:00 82 08/17/16 21:00 88 08/17/16 20:00 96 08/17/16 19:00 98 08/17/16 19:00 98.9 98 92/65 98 08/17/16 18:00 102 General: Alert and Oriented, No acute distress Eye: EOMI Respiratory: Lungs CTA, Non-labored respirations Cardiology: Normal rate, Regular Rhythm Musculoskeletal: Swelling Neurologic: Alert, Oriented, CN II-XII intact, Normal DTR's Psychiatric: Cooperative, Appropriate mood & affect, Normal judgement Objective Radiology Results Last 48 hours Impressions Lumbar Puncture Fluoroscopy 08/17/16 0000 Signed Impressions: Service Date/Time: Wednesday, August 17, 2016 12:26 - CONCLUSION: Uncomplicated fluoroscopically guided lumbar puncture. Vishal Beckford Jr., MD Brain MRI 08/17/16 0000 Signed Impressions: Service Date/Time: Wednesday, August 17, 2016 13:28 - CONCLUSION: Remote long-standing areas of abnormality in the brainstem and middle cerebellar peduncle consistent with remote infarcts or contusion. No acute intracranial abnormality. Chacho Bright MD Abdomen X-Ray 08/17/16 0000 Signed Impressions: Service Date/Time: Wednesday, August 17, 2016 13:02 - CONCLUSION: No evidence of obstruction. No MRI incompatible foreign body is identified. Chacho Bright MD Micro and Labs Laboratory Tests Test 08/15/16 08/16/16 08/17/16 08/17/16 17:50 06:40 06:05 08:16 Urine Mucus FEW /lpf (OCC) White Blood Count 25.6 TH/MM3 25.1 TH/MM3 (4.0-11.0) (4.0-11.0) Red Blood Count 3.80 MIL/MM3 3.27 MIL/MM3 (4.50-5.90) (4.50-5.90) Hemoglobin 10.5 GM/DL 9.2 GM/DL (13.0-17.0) (13.0-17.0) Hematocrit 33.6 % 28.6 % (39.0-51.0) (39.0-51.0) Mean Corpuscular Hemoglobin 31.3 % Concent (32.0-36.0) Erythrocyte Sedimentation Rate 108 mm/hr (0-15) Estimat Glomerular Filtration 87 ML/MIN (>89) 70 ML/MIN (>89) Rate Random Glucose 113 MG/DL 137 MG/DL (74-106) (74-106) Chloride Level 108 MEQ/L (98-107) Creatinine 1.35 MG/DL (0.60-1.30) Calcium Level 8.2 MG/DL (8.5-10.1) Vancomycin Level Trough 38.4 MCG/ML (5.0-10.0) Prothrombin Time 12.7 SEC (9.8-11.6) Activated Partial 40.0 SEC Thromboplast Time (24.3-30.1) Test 08/17/16 08/17/16 08/18/16 12:38 16:30 05:08 CSF WBC (Tube 1) 45 /MM3 (0-10) CSF Gross Blood (Tube 4) TRACE (0) CSF Total Protein 97.7 MG/DL (15.0-45.0) Vancomycin Level Trough 17.3 MCG/ML (5.0-10.0) White Blood Count 19.2 TH/MM3 (4.0-11.0) Red Blood Count 3.36 MIL/MM3 (4.50-5.90) Hemoglobin 9.4 GM/DL (13.0-17.0) Hematocrit 29.7 % (39.0-51.0) Mean Corpuscular Hemoglobin 31.8 % Concent (32.0-36.0) Chloride Level 111 MEQ/L (98-107) Creatinine 1.67 MG/DL (0.60-1.30) Estimat Glomerular Filtration 54 ML/MIN (>89) Rate Random Glucose 129 MG/DL (74-106) Laboratory Tests Test 08/18/16 05:08 White Blood Count 19.2 Red Blood Count 3.36 Hemoglobin 9.4 Hematocrit 29.7 Mean Corpuscular Volume 88.2 Mean Corpuscular Hemoglobin 28.0 Mean Corpuscular Hemoglobin 31.8 Concent Red Cell Distribution Width 15.0 Platelet Count 371 Mean Platelet Volume 8.4 Sodium Level 145 Potassium Level 3.5 Chloride Level 111 Carbon Dioxide Level 25.2 Anion Gap 9 Blood Urea Nitrogen 13 Creatinine 1.67 Estimat Glomerular Filtration 54 Rate Random Glucose 129 Calcium Level 8.8 Date/Time Procedure Status Source Growth 08/17/16 12:38 Gram Stain - Final Resulted Cerebral Spinal Fluid Lumbar Puncture 08/17/16 12:38 CSF Culture - Preliminary Resulted Cerebral Spinal Fluid Lumbar Puncture NO GROWTH IN 24 HOURS. 08/17/16 12:38 Fungal Smear - Final Resulted Cerebral Spinal Fluid Lumbar Puncture NO FUNGAL ELEMENTS SEEN. 08/17/16 12:38 Fungal Culture Resulted Cerebral Spinal Fluid Lumbar Puncture Pending 08/17/16 07:56 Gram Stain Ordered Cerebral Spinal Fluid Lumbar Puncture Pending 08/17/16 07:56 CSF Culture Ordered Cerebral Spinal Fluid Lumbar Puncture Pending 08/15/16 16:03 Aerobic Blood Culture - Preliminary Resulted Blood Peripheral NO GROWTH IN 3 DAYS 08/15/16 16:03 Anaerobic Blood Culture - Preliminary Resulted Blood Peripheral NO GROWTH IN 3 DAYS Wolfgang Jessica MD Aug 18, 2016 17:28
[2016-08-18] MEDS: ATORVASTATIN 40 MG TAB PO SCH (21:00)
[2016-08-19] VITALS (16 sets, daily range): BP systolic 108–121; BP diastolic 74–91; PULSE 74–88; RESP 18–20; TEMP 97.5–98.1; O2SAT 97–100
[2016-08-19] MEDS: D5-1/2 NS + KCL 10 MEQ INJ 1,000 ML IV SCH ×4 (01:59→20:53)
[2016-08-19] MEDS: cefTRIAXone INJ 2,000 MG in SODIUM CHLORIDE 0.9% INJ 100 ML IV SCH ×2 (05:10→17:15)
[2016-08-19] MEDS: INSULIN ASPART SUPPLEMENTAL SCALE SQ SCH ×4 (06:03→20:53)
[2016-08-19 07:06] LABS: HEMATOCRIT 28.7 % (39.0-51.0); HEMOGLOBIN 9.3 GM/DL (13.0-17.0); MEAN CELL VOLUME 87.1 FL (80.0-100.0); MEAN CORPUSCULAR HEMOGLOBIN 28.1 PG (27.0-34.0); MEAN CORPUSCULAR HGB CONC 32.2 % (32.0-36.0); MEAN PLATELET VOLUME 8.2 FL (7.0-11.0); PLATELET COUNT 420 TH/MM3 (150-450); RED CELL DISTRIBUTION WIDTH 15.2 % (11.6-17.2); WHITE BLOOD COUNT 11.1 TH/MM3 (4.0-11.0)
[2016-08-19 07:42] LABS: BICARBONATE 26.7 MEQ/L (21.0-32.0); CALCIUM 8.7 MG/DL (8.5-10.1); CREATININE 1.49 MG/DL (0.60-1.30); RANDOM VANCOMYCIN 16.8 COMMENT
--- NOTE | 2016-08-19 09:03 | HHI.PR ---
Review/Management Daily Summary 08/18 discussed with RN, stable overall data seen, lp abnormal csf meningites/encephalitis? infectious dx on board will follow peripherally 08/19 more alert and follows simple commands moves left side on command denies zazueta by nodding severe right hemiparesis but also has weakness on the left meningoencephalitis infectious vs vasculitis neuro Behcet's if not making reasonable progress with antibiotics the consider course pulse steroids (solumedrol 1 gr iv daily x3) prn neuro over the weekend, please call if needed Subjective Subjective Comments No acute events reported No headache No chest pain No dyspnea Active Medications Current Medications Medications (Trade) Dose Ordered Sig/Beau Route Start Time Stop Time Status Last Admin (Pepcid) 20 mg BID PO 08/13/16 21:00 (D50w (Vial) Inj) 25 ml UNSCH PRN IV PUSH 08/13/16 13:45 (Glucagon Inj) 1 mg UNSCH PRN OTHER 08/13/16 13:45 (NS Flush) 2 ml UNSCH PRN FLUSH 08/13/16 14:00 (NS Flush) 2 ml BID FLUSH 08/13/16 21:00 08/18/16 21:00 (Tylenol) 650 mg Q4H PRN PO 08/13/16 14:00 (Zofran Inj) 4 mg Q6H PRN IVP 08/13/16 14:00 (Narcan Inj) 0.4 mg UNSCH PRN IV 08/13/16 14:00 Atorvastatin Calcium 40 mg 40 mg HS PO 08/13/16 21:00 (D5-1/2 NS + KCl 10 Meq Inj) 1,000 ml @ 150 mls/hr Q6H40M IV 08/14/16 13:30 08/19/16 05:10 Acetaminophen 650 mg 650 mg Q6H PRN RECTAL 08/15/16 16:30 08/17/16 21:49 Pharmacy Profile Note 0 ml @ 0 mls/hr UNSCH OTHER 08/15/16 16:30 Diltiazem HCl 125 mg/Sodium Chloride 125 ml @ 0 mls/hr TITRATE IV 08/16/16 17:30 08/16/16 18:37 (Rocephin Inj/NS Inj) 100 ml @ 200 mls/hr Q12H IV 08/17/16 17:00 08/19/16 05:10 Metoprolol Tartrate 5 mg 5 mg Q6H PRN IV PUSH 08/18/16 15:15 (Vancomycin Inj/ NS 250 ml Inj) 257.5 ml @ 250 mls/hr Q24H IV 08/19/16 10:00 Miscellaneous Information SPECIFIC LAB TO BE BEATRICE... ONCE ONCE XX 08/22/16 09:45 08/22/16 09:46 Allergies Allergies Coded Allergies No Known Allergies (Unverified08/17/16) Review of Systems All other ROS: ROS reviewed as documented in chart Exam I&O / VS 08/18/16 08/18/16 08/19/16 15:00 23:00 07:00 Intake Total 857 ml 1500 ml Output Total 1650 ml 1900 ml Balance -793 ml -400 ml Intake Oral 0 ml IV Total 857 ml 1500 ml Output Urine Total 1650 ml 1900 ml # Bowel Movements 0 1 Vital Signs Date Time Temp Pulse Resp B/P Pulse Ox O2 Delivery O2 Flow Rate FiO2 08/19/16 06:00 76 08/19/16 05:00 80 08/19/16 04:44 97.9 81 118/79 100 08/19/16 04:00 76 08/19/16 03:35 84 08/19/16 02:00 80 08/19/16 01:00 88 08/19/16 00:00 97.6 88 108/78 99 08/19/16 00:00 88 08/19/16 00:00 82 08/18/16 22:00 92 08/18/16 21:39 98.3 87 109/72 98 08/18/16 21:00 86 08/18/16 20:00 75 08/18/16 20:00 84 08/18/16 17:00 92 08/18/16 16:00 98.9 88 16 108/70 98 08/18/16 16:00 82 08/18/16 15:00 82 08/18/16 14:00 78 08/18/16 13:00 84 08/18/16 12:00 98.5 91 16 98/69 99 08/18/16 12:00 90 08/18/16 11:00 92 08/18/16 10:00 92 08/18/16 10:00 103/66 08/18/16 09:00 90 General: Alert and Oriented, No acute distress Eye: EOMI Respiratory: Lungs CTA, Non-labored respirations Cardiology: Normal rate, Regular Rhythm Musculoskeletal: Swelling Neurologic: Alert, Oriented, CN II-XII intact, Normal DTR's Psychiatric: Cooperative, Appropriate mood & affect, Normal judgement Objective Radiology Results Vital Signs Date Time Temp Pulse Resp B/P Pulse Ox O2 Delivery O2 Flow Rate FiO2 08/19/16 06:00 76 08/19/16 05:00 80 08/19/16 04:44 97.9 81 118/79 100 08/19/16 04:00 76 08/19/16 03:35 84 08/19/16 02:00 80 08/19/16 01:00 88 08/19/16 00:00 97.6 88 108/78 99 08/19/16 00:00 88 08/19/16 00:00 82 08/18/16 22:00 92 08/18/16 21:39 98.3 87 109/72 98 08/18/16 21:00 86 08/18/16 20:00 75 08/18/16 20:00 84 08/18/16 17:00 92 08/18/16 16:00 98.9 88 16 108/70 98 08/18/16 16:00 82 08/18/16 15:00 82 08/18/16 14:00 78 08/18/16 13:00 84 08/18/16 12:00 98.5 91 16 98/69 99 08/18/16 12:00 90 08/18/16 11:00 92 08/18/16 10:00 92 08/18/16 10:00 103/66 08/18/16 09:00 90 Micro and Labs Laboratory Tests Test 08/17/16 08/17/16 08/17/16 08/17/16 06:05 08:16 12:38 16:30 White Blood Count 25.1 TH/MM3 (4.0-11.0) Red Blood Count 3.27 MIL/MM3 (4.50-5.90) Hemoglobin 9.2 GM/DL (13.0-17.0) Hematocrit 28.6 % (39.0-51.0) Chloride Level 108 MEQ/L (98-107) Creatinine 1.35 MG/DL (0.60-1.30) Estimat Glomerular Filtration 70 ML/MIN (>89) Rate Random Glucose 137 MG/DL (74-106) Calcium Level 8.2 MG/DL (8.5-10.1) Vancomycin Level Trough 38.4 MCG/ML 17.3 MCG/ML (5.0-10.0) (5.0-10.0) Prothrombin Time 12.7 SEC (9.8-11.6) Activated Partial 40.0 SEC Thromboplast Time (24.3-30.1) CSF WBC (Tube 1) 45 /MM3 (0-10) CSF Gross Blood (Tube 4) TRACE (0) CSF Total Protein 97.7 MG/DL (15.0-45.0) Test 08/18/16 08/19/16 05:08 06:30 White Blood Count 19.2 TH/MM3 11.1 TH/MM3 (4.0-11.0) (4.0-11.0) Red Blood Count 3.36 MIL/MM3 3.30 MIL/MM3 (4.50-5.90) (4.50-5.90) Hemoglobin 9.4 GM/DL 9.3 GM/DL (13.0-17.0) (13.0-17.0) Hematocrit 29.7 % 28.7 % (39.0-51.0) (39.0-51.0) Mean Corpuscular Hemoglobin 31.8 % Concent (32.0-36.0) Chloride Level 111 MEQ/L 114 MEQ/L (98-107) (98-107) Creatinine 1.67 MG/DL 1.49 MG/DL (0.60-1.30) (0.60-1.30) Estimat Glomerular Filtration 54 ML/MIN (>89) 62 ML/MIN (>89) Rate Random Glucose 129 MG/DL 142 MG/DL (74-106) (74-106) Sodium Level 147 MEQ/L (136-145) Laboratory Tests Test 08/19/16 06:30 White Blood Count 11.1 Red Blood Count 3.30 Hemoglobin 9.3 Hematocrit 28.7 Mean Corpuscular Volume 87.1 Mean Corpuscular Hemoglobin 28.1 Mean Corpuscular Hemoglobin 32.2 Concent Red Cell Distribution Width 15.2 Platelet Count 420 Mean Platelet Volume 8.2 Sodium Level 147 Potassium Level 3.5 Chloride Level 114 Carbon Dioxide Level 26.7 Anion Gap 6 Blood Urea Nitrogen 9 Creatinine 1.49 Estimat Glomerular Filtration 62 Rate Random Glucose 142 Calcium Level 8.7 Random Vancomycin Level 16.8 Date/Time Procedure Status Source Growth 08/17/16 12:38 Gram Stain - Final Resulted Cerebral Spinal Fluid Lumbar Puncture 08/17/16 12:38 CSF Culture - Preliminary Resulted Cerebral Spinal Fluid Lumbar Puncture NO GROWTH IN 48 HOURS. 08/17/16 12:38 Fungal Smear - Final Resulted Cerebral Spinal Fluid Lumbar Puncture NO FUNGAL ELEMENTS SEEN. 08/17/16 12:38 Fungal Culture Resulted Cerebral Spinal Fluid Lumbar Puncture Pending 08/17/16 07:56 Gram Stain Ordered Cerebral Spinal Fluid Lumbar Puncture Pending 08/17/16 07:56 CSF Culture Ordered Cerebral Spinal Fluid Lumbar Puncture Pending 08/15/16 16:03 Aerobic Blood Culture - Preliminary Resulted Blood Peripheral NO GROWTH IN 3 DAYS 08/15/16 16:03 Anaerobic Blood Culture - Preliminary Resulted Blood Peripheral NO GROWTH IN 3 DAYS Wolfgang Jessica MD Aug 19, 2016 09:03
--- NOTE | 2016-08-19 09:28 | HHI.PR ---
Subjective Remarks Patient will have PEG tube placed today. Afebrile this morning. Nod no in response to whether or not he has pain. Objective Vitals Vital Signs Date Time Temp Pulse Resp B/P Pulse Ox O2 Delivery O2 Flow Rate FiO2 08/19/16 09:19 97.9 81 18 118/79 97 08/19/16 06:00 76 08/19/16 05:00 80 08/19/16 04:44 97.9 81 118/79 100 08/19/16 04:00 76 08/19/16 03:35 84 08/19/16 02:00 80 08/19/16 01:00 88 08/19/16 00:00 97.6 88 108/78 99 08/19/16 00:00 88 08/19/16 00:00 82 08/18/16 22:00 92 08/18/16 21:39 98.3 87 109/72 98 08/18/16 21:00 86 08/18/16 20:00 75 08/18/16 20:00 84 08/18/16 17:00 92 08/18/16 16:00 98.9 88 16 108/70 98 08/18/16 16:00 82 08/18/16 15:00 82 08/18/16 14:00 78 08/18/16 13:00 84 08/18/16 12:00 98.5 91 16 98/69 99 08/18/16 12:00 90 08/18/16 11:00 92 08/18/16 10:00 92 08/18/16 10:00 103/66 I/O 08/18/16 08/18/16 08/18/16 08/19/16 08/19/16 08/19/16 07:00 15:00 23:00 07:00 15:00 23:00 Intake Total 1500 ml 857 ml 1500 ml Output Total 550 ml 1650 ml 1900 ml Balance 950 ml -793 ml -400 ml Intake Oral 0 ml IV Total 1500 ml 857 ml 1500 ml Output Urine Total 550 ml 1650 ml 1900 ml # Bowel Movements 0 1 Result Diagram: 08/19/16 0630 08/19/16 0630 Objective Remarks GENERAL: Chronically ill-appearing male in no apparent distress. Can nod yes or no to some questions. SKIN: left upper back and medial antecubital area with skin tears. Dried wound on the left wrist. CARDIOVASCULAR: Normal rate and regular rhythm without murmurs, gallops, or rubs. RESPIRATORY: Breath sounds equal and clear to auscultation bilaterally. GASTROINTESTINAL: Abdomen soft, non-distended. Normal active bowel sounds MUSCULOSKELETAL: Extremities without some evidence of contractures. NEURO: Patient is aphasic, Can nod yes or no to some questions. Follow commands. Generalized weakness. Right hemiparesis from previous stroke. PSYCH: Calm but becomes tearful when he is asked questions. 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 According to the patient's , he has been having a declining course. Discussed with Dr. Reyes, agree with Palliative care consult to provide support to his . It is unclear if she will be able to continue to care for him at home. Sepsis, persistent fever and leukocytosis,unclear source. Appear to be improving after Rocephin started. Initially thought to be due to UTI but urine culture is neg: On arrival patient was tachycardic with heart rate 131, rectal temperature 99.8. Labs remarkable for WBC 14.9 K, elevated BUN 28, lactic acid 1.7. Urinalysis shows possible UTI with bacteria. CXR images reviewed, unremarkable. Currently on Rocephin and vancomycin. One out of 4 blood cultures with staph epidermidis. ?Contaminant. Repeat blood cultures unremarkable. Brain CT and MRI unremarkable. Status post LP. CSF culture negative. -Sepsis improving on antibiotics. Discussed with Dr. Reyes. Skin lesions could have been the source. Fever for 24 hours: Resolved. Decreased Oral Intake and dysphagia: Speech therapy following. S/P barium swallow. Patient needs alternate method of feeding with PEG due to severe dysphagia. I spoke to his Lucille who agreed to PEG. GI following. PEG was held because the patient was not stable. He has improved. - PEG placed today. Will start tube feeding. Acute renal insufficiency: Probably combination of pre renal azotemia and sepsis. Insensible loss due to fever. Improving. Not taking anything oral. Continue IVF. Monitor and avoid nephrotoxins. Intermittent Sinus Tachycardia: Patient has been on Cardizem for this but has been unable to take oral medications. Heart rate is now normal. Continue to monitor on telemetry. Left upper back and medial antecubital skin tear: Etiology unclear. Family reports that it started as a blister. ?pressure due to lack of turning. Could have turned into cellulitis. Continue dressing changes per RN. Diabetes: chronic, monitor Accu-Cheks and cover with low-dose SSI. All other medical conditions stable, continue home meds. DVT Prophylaxis: teds/SCDs Problem Qualifiers (1) UTI (urinary tract infection): Qualified Code: N39.0 - Urinary tract infection without hematuria, site unspecified Leticia Garrett MD Aug 19, 2016 09:28
[2016-08-19] MEDS: FAMOTIDINE 20 MG TAB PO SCH ×2 (09:34→20:51)
[2016-08-19] MEDS: SODIUM CHLORIDE 0.9% FLUSH 5 ML FLUSH FLUSH SCH ×2 (09:34→20:51)
--- NOTE | 2016-08-19 10:21 | HHI.GIFU ---
Subjective Remarks seems to be doing ok, still non verbal, but not septic Objective Vitals I&O Vital Signs Date Time Temp Pulse Resp B/P Pulse Ox O2 Delivery O2 Flow Rate FiO2 08/19/16 10:03 97.6 97 18 123/80 98 08/19/16 09:19 97.9 81 18 118/79 97 08/19/16 06:00 76 08/19/16 05:00 80 08/19/16 04:44 97.9 81 118/79 100 08/19/16 04:00 76 08/19/16 03:35 84 08/19/16 02:00 80 08/19/16 01:00 88 08/19/16 00:00 97.6 88 108/78 99 08/19/16 00:00 88 08/19/16 00:00 82 08/18/16 22:00 92 08/18/16 21:39 98.3 87 109/72 98 08/18/16 21:00 86 08/18/16 20:00 75 08/18/16 20:00 84 08/18/16 17:00 92 08/18/16 16:00 98.9 88 16 108/70 98 08/18/16 16:00 82 08/18/16 15:00 82 08/18/16 14:00 78 08/18/16 13:00 84 08/18/16 12:00 98.5 91 16 98/69 99 08/18/16 12:00 90 08/18/16 11:00 92 I/O 08/18/16 08/18/16 08/18/16 08/19/16 08/19/16 08/19/16 07:00 15:00 23:00 07:00 15:00 23:00 Intake Total 1500 ml 857 ml 1500 ml 300 ml Output Total 550 ml 1650 ml 1900 ml Balance 950 ml -793 ml -400 ml 300 ml Intake Oral 0 ml IV Total 1500 ml 857 ml 1500 ml Other 300 ml Output Urine Total 550 ml 1650 ml 1900 ml # Bowel Movements 0 1 Laboratory Laboratory Tests Test 08/19/16 06:30 White Blood Count 11.1 Red Blood Count 3.30 Hemoglobin 9.3 Hematocrit 28.7 Mean Corpuscular Volume 87.1 Mean Corpuscular Hemoglobin 28.1 Mean Corpuscular Hemoglobin 32.2 Concent Red Cell Distribution Width 15.2 Platelet Count 420 Mean Platelet Volume 8.2 Sodium Level 147 Potassium Level 3.5 Chloride Level 114 Carbon Dioxide Level 26.7 Anion Gap 6 Blood Urea Nitrogen 9 Creatinine 1.49 Estimat Glomerular Filtration 62 Rate Random Glucose 142 Calcium Level 8.7 Random Vancomycin Level 16.8 Date/Time Procedure Status Source Growth 08/17/16 12:38 Gram Stain - Final Resulted Cerebral Spinal Fluid Lumbar Puncture 08/17/16 12:38 CSF Culture - Preliminary Resulted Cerebral Spinal Fluid Lumbar Puncture NO GROWTH IN 48 HOURS. 08/17/16 12:38 Fungal Smear - Final Resulted Cerebral Spinal Fluid Lumbar Puncture NO FUNGAL ELEMENTS SEEN. 08/17/16 12:38 Fungal Culture Resulted Cerebral Spinal Fluid Lumbar Puncture Pending 08/17/16 07:56 Gram Stain Ordered Cerebral Spinal Fluid Lumbar Puncture Pending 08/17/16 07:56 CSF Culture Ordered Cerebral Spinal Fluid Lumbar Puncture Pending 08/15/16 16:03 Aerobic Blood Culture - Preliminary Resulted Blood Peripheral NO GROWTH IN 3 DAYS 08/15/16 16:03 Anaerobic Blood Culture - Preliminary Resulted Blood Peripheral NO GROWTH IN 3 DAYS Physical Exam HEENT: Normocephalic; atraumatic; no jaundice. CHEST: Resp even/unlabored, diminished bases CARDIAC: RRR ABDOMEN: Soft, nondistended, nontender; no hepatosplenomegaly; bowel sounds are present in all four quadrants. EXTREMITIES: No clubbing, cyanosis, or edema. SKIN: Normal; no rash; no jaundice. LIFE MANAGEMENT TEACHER: Lethargic Assessment and Plan Plan ASSESSMENT: - Dysphagia. 46 year old male with of history neuro-Behcet's diagnosed at [place] , left frontal CVA, mural thrombus, brain abscess, meningitis, hypertension, diabetes, presents for decreased oral intake over the past 23 days, and skin tear at the left upper extremity and was found sepsis, leukocytosis of unknown source. MBS----> severe oral/pharyngeal phase dysphagia. Will need PEG as primary nutrition, pleasure feeds of liquids thickened to honey consistency tsp by tsp and/or purees. GI consulted for PEG, but patient No fevers today, he is stable according to Dr. Kohli, Will plan for PEG tube placement in the am - Sepsis/leukocytosis/febrile/ tachy cardiac - no known etiology, abx, ID on the case, S/P LP , results pending. - Left antecubital skin tear- wound care nurse on the case, - History of neuro-Behcet's diagnosed at [place], left frontal CVA, bedbound, nonverbal, mural thrombus, brain abscess, meningitis, hypertension, diabetes per attending --17 patient is stable for PEG tube, was placed today with EGD no complications Plan: - Puree, honey thickened liquids for pleasure - ST - NPO for 6 hours then may start feeding in 6 hours - Supportive care Jana Patterson MD Aug 19, 2016 10:21
[2016-08-19 11:01] LABS: HSV 1,PCR Negative (Negative)
[2016-08-19] MEDS: VANCOMYCIN INJ 750 MG in SODIUM CHLOR 0.9% 250 ML INJ 250 ML IV SCH (11:09)
--- NOTE | 2016-08-19 13:01 | HHI.IDPN ---
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 Patient has reportedly been evaluated at [facility] and is on chronic steroids. Patient also underwent rehab but does not appear to have changed in fact from review of notes appears worsening. With this background patient was admitted. All the information obtained from the EMR and ER physicians know as the patient is nonverbal and unable to provide any history. Apparently, the patient lives at home with his sister who is his commercial door installer. She reported the patient has had decreased oral intake over the past few days. Also complains of a skin tear at the left antecubital space, unknown how the injury occurred. Upon arrival to the ER, patient was tachycardic with heart rate 131, rectal temperature 99.8. Labs remarkable for WBC 14.9 K, elevated BUN 28, lactic acid 1.7. Urinalysis shows possible UTI with bacteria. Blood cultures collected. He was started on IV Vanco and Zosyn. Overnight events reviewed No fever No rash No diarrhea Has PEG tube placed. at bedside: in tears. She says she is aware that he is deteriorating. She works as a GAUGE CHECKER at [employer]. Patient often is home by himself while she is at work. Not eating failure to thrive prior to admission Had blisters on arm that ulcerated. Antibiotics Ceftriaxone IV Vanco IV Lines Line sites with no e.o infection Past Medical History reviewed Allergies: Coded Allergies: No Known Allergies (Unverified , 08/17/16) Objective . Vital Signs Date Time Temp Pulse Resp B/P Pulse Ox O2 Delivery O2 Flow Rate FiO2 08/19/16 10:14 91 18 121/81 98 08/19/16 10:06 98 18 121/80 95 08/19/16 10:03 97.6 97 18 123/80 98 08/19/16 09:19 97.9 81 18 118/79 97 08/19/16 08:00 82 08/19/16 08:00 97.6 79 18 112/77 98 08/19/16 06:00 76 08/19/16 05:00 80 08/19/16 04:44 97.9 81 118/79 100 08/19/16 04:00 76 08/19/16 03:35 84 08/19/16 02:00 80 08/19/16 01:00 88 08/19/16 00:00 97.6 88 108/78 99 08/19/16 00:00 88 08/19/16 00:00 82 08/18/16 22:00 92 08/18/16 21:39 98.3 87 109/72 98 08/18/16 21:00 86 08/18/16 20:00 75 08/18/16 20:00 84 08/18/16 17:00 92 08/18/16 16:00 98.9 88 16 108/70 98 08/18/16 16:00 82 08/18/16 15:00 82 08/18/16 14:00 78 08/18/16 08/18/16 08/19/16 15:00 23:00 07:00 Intake Total 857 ml 1500 ml Output Total 1650 ml 1900 ml Balance -793 ml -400 ml Intake Oral 0 ml IV Total 857 ml 1500 ml Output Urine Total 1650 ml 1900 ml # Bowel Movements 0 1 . Laboratory Tests Test 08/18/16 08/19/16 05:08 06:30 White Blood Count 19.2 TH/MM3 11.1 TH/MM3 Red Blood Count 3.36 MIL/MM3 3.30 MIL/MM3 Hemoglobin 9.4 GM/DL 9.3 GM/DL Hematocrit 29.7 % 28.7 % Mean Corpuscular Volume 88.2 FL 87.1 FL Mean Corpuscular Hemoglobin 28.0 PG 28.1 PG Mean Corpuscular Hemoglobin 31.8 % 32.2 % Concent Red Cell Distribution Width 15.0 % 15.2 % Platelet Count 371 TH/MM3 420 TH/MM3 Mean Platelet Volume 8.4 FL 8.2 FL Laboratory Tests Test 08/18/16 08/19/16 05:08 06:30 Sodium Level 145 MEQ/L 147 MEQ/L Potassium Level 3.5 MEQ/L 3.5 MEQ/L Chloride Level 111 MEQ/L 114 MEQ/L Carbon Dioxide Level 25.2 MEQ/L 26.7 MEQ/L Anion Gap 9 MEQ/L 6 MEQ/L Blood Urea Nitrogen 13 MG/DL 9 MG/DL Creatinine 1.67 MG/DL 1.49 MG/DL Estimat Glomerular Filtration 54 ML/MIN 62 ML/MIN Rate Random Glucose 129 MG/DL 142 MG/DL Calcium Level 8.8 MG/DL 8.7 MG/DL Microbiology Date/Time Procedure Status Source Growth 08/17/16 07:56 Gram Stain Ordered Cerebral Spinal Fluid Lumbar Puncture Pending 08/17/16 07:56 CSF Culture Ordered Cerebral Spinal Fluid Lumbar Puncture Pending 08/17/16 12:38 Gram Stain - Final Resulted Cerebral Spinal Fluid Lumbar Puncture 08/17/16 12:38 CSF Culture - Preliminary Resulted Cerebral Spinal Fluid Lumbar Puncture NO GROWTH IN 48 HOURS. 08/17/16 12:38 Fungal Smear - Final Resulted Cerebral Spinal Fluid Lumbar Puncture NO FUNGAL ELEMENTS SEEN. 08/17/16 12:38 Fungal Culture Resulted Cerebral Spinal Fluid Lumbar Puncture Pending Imaging Last Impressions Lumbar Puncture Fluoroscopy 08/17/16 0000 Signed Impressions: Service Date/Time: Wednesday, August 17, 2016 12:26 - CONCLUSION: Uncomplicated fluoroscopically guided lumbar puncture. Vishal Beckford Jr., MD Brain MRI 08/17/16 0000 Signed Impressions: Service Date/Time: Wednesday, August 17, 2016 13:28 - CONCLUSION: Remote long-standing areas of abnormality in the brainstem and middle cerebellar peduncle consistent with remote infarcts or contusion. No acute intracranial abnormality. Chacho Bright MD Abdomen X-Ray 08/17/16 0000 Signed Impressions: Service Date/Time: Wednesday, August 17, 2016 13:02 - CONCLUSION: No evidence of obstruction. No MRI incompatible foreign body is identified. Chacho Bright MD Head CT 08/16/16 0000 Signed Impressions: Service Date/Time: Tuesday, August 16, 2016 09:55 - CONCLUSION: Chronic ischemic changes left frontal lobe possibly from evidence of previous ventriculostomy placement, unchanged. No acute intracranial abnormality. Gen Potter MD Chest X-Ray 08/15/16 1617 Signed Impressions: Service Date/Time: Monday, August 15, 2016 16:35 - CONCLUSION: No acute disease. No significant change has occurred. No significant change has occurred. Chacho Bright MD Modified Barium Swallow 08/15/16 0000 Signed Impressions: Service Date/Time: Monday, August 15, 2016 00:00 - CONCLUSION: See report above and speech pathology report Chacho Bright MD Physical Exam GENERAL: Poorly nourished, poorly-developed patient, in no apparent distress. SKIN: No rashes. Ecchymosis and LUE skin breaks noted. HEAD: Atraumatic. Normocephalic. No temporal or scalp tenderness. EYES: Pupils equal round and reactive. Extraocular motions intact. No scleral icterus. No injection or drainage. ENT: Nose without bleeding, purulent drainage or septal hematoma. Throat without erythema, tonsillar hypertrophy or exudate. Uvula midline. Airway patent. NECK: Trachea midline. Supple, nontender, no meningeal signs. CARDIOVASCULAR: HS audible. No murmur. RESPIRATORY: Clear to auscultation. Breath sounds equal bilaterally. GASTROINTESTINAL: Abdomen soft, non-tender, nondistended. MUSCULOSKELETAL: Extremities without clubbing, cyanosis, or edema. NEUROLOGICAL: Awake and alert. Aphasic. LE weakness but able to flex both limbs minimally. Psych: tearful and at times frustrated due to inability to express himself. IV line sites with no e.o infection. Assessment & Plan Remarks Possible Meningoencephalitis. Staph epi bacteremia: ? contaminant. ? cellulitis bilateral LE. H/o Neuro-Behcet's disease H/o Meningitis and Brain abscess. Aphasic Recs Continue Ceftriaxone IV Continue Vanco IV Meningitis doses. MRI report reviewed. LP reviewed. Await cultures. Doppler UE bilateral r/o DVT Patient has prior h/o DVT. reports 1 year back he was seen at [place] recd IV antibiotics(for ? brain abscess) and prednisone for neuro-Behcets disease. As soon as the above regimen was stopped he again began deteriorating per . No senior care immune suppression recommended per . d/w : showing signs of care transition manager stress, needs moral support and guidance to address goals of care. Will consult palliative care to help her address goals of care etc. d.w in presence of RN she requests consult. Will follow next on Monday08/22/16. If any change in clinical condition call career and transition teacher Berna Xie MD., MD Aug 19, 2016 13:01
--- NOTE | 2016-08-19 17:11 | PD.CONS ---
Consult Service Palliative Care Consult Requested By Jose Elias Cornell MD. Primary Care Physician No Primary Care Physician Reason for Consultation a. To assist with evaluation and management of symptoms including: debility , dysphagia and depression/tearful outbursts. b. To assist medical decision maker(s) with: better understanding of current medical conditions; weighing benefits/burdens of medical treatment options; making medical treatment decisions. . HPI History of Present Illness Mr. 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 Patient presented to the ED on 08/13/16 via EMS were reports of decreased oral intake for the prior 2-3 days and skin tear to left upper extremity. Upon ED arrival, patient was tachycardic with heart rate in the 130s. Checks x-rays of today with no evidence of acute process. WBC 14.9, Hgb 13.6, platelets 386. Sodium 147, potassium 3.5, BUN/creatinine 9/ 1.49. Urinalysis show possible UTI with bacteria, but urine culture was negative. Patient was started on IV Vanco and Zosyn. Modified barium swallow evaluation was obtained on 08/15/16, he presented with severe oral dysphagia with delayed swallow response. No evidence of penetration or aspiration. PEG tube was recommended with pleasure feeding of honey to thickened liquid consistency. GI -Dr. Patterson consulted on 08/16/16 for PEG tube placement. Head CT obtained on 08/16/16 revealing chronic ischemic changes to left frontal lobe. Neurology -Dr. Jessica consulted on 08/17/16 for history of fever and sepsis. Lumbar puncture obtained, cerebrospinal fluid sent for cultures. No growth in 48 hours. Pending fungal culture. Infectious disease -Dr. Reyes consulted on 08/17/16. Brain MRI secured 08/17/16 showing remote long-standing areas of abnormality in the brainstem consistent with remote infarcts, negative for acute intracranial abnormality. PEG tube was place today to 13/10/16 with EGD and no complications were reported. Review of medical records and prior hospitalizations. Patient with multiple office visits and ER visits secondary to numbness, neurological deficits, diplopia, and headaches. Acute prolonged hospitalizations from November 27, 2015 to December 30, 2015 secondary to progressive weakness from possible vasculitis versus demyelination disease. Neurology was following. MRI of the brain showed an acute coronary infarct in the left frontal lobe. CT of the head and neck unremarkable. LP negative. Per neurology, after reviewing a [facility] records, process likely secondary to autoimmune process. Patient also presented with crying outburst, psychiatry was consulted, pseudobulbar affect considered as primary etiology. Psychiatry recommended trial of Neudexta. This was not started as symptoms improved. Patient was discharged to [facility] on 12/30/15 and discharge home on 02/01/16. Patient again presented to ED on 02/20/16 via EMS secondary to altered mental status, UTI, he was admitted and discharged home on 03/11/16. At that time he was still on immunosuppression therapy with prednisone and Imuran. Patient was still verbal at that time. Patient seen in his room, alert, following some commands. Patient started to cry inconsolably with any interaction. Asked if he was in pain or if he was feeling sad, for which he replied no by shaking his head. Asked why he was crying, patient mouthing words and said "I don't know". Patient denied pain, dyspnea, or any discomfort. No family at bedside. Right-sided hemiparesis, weak hand grasp on left. Wiggling toes on left. PEG tube placed today. Patient afebrile, stable BP. Tolerating room air. Laboratory today to include WBC 11.1, Hgb 9.3, platelet 420. Sodium 147, potassium 3.5, BUN/creatinine 9/ 1.49. Palliative care was consulted to assist clarifications of goals of care in the setting of patient's progressive decline and complications. Case discussed with Dr. Jose Elias Reyes, patient's showing signs of caregiver stress, needing emotional support and guidance. Telephone call to maile Ramirez message on [employer]. . Function/Cognitive Trajectory Progressive reported decline for the past 12 months. Prolonged hospitalizations in November to December 2015 and rehabilitation from December 29 to January. Patient now bedbound, severe right sided hemiparesis. Aphasic, limited communication ability. Shaking head to yes/no questions, mouthing some words. Patient is total care and requires full assistance with all ADLs. Was being care at home by his and her mother. . Review of Systems ROS Limitations: Clinical Condition Endocrine: DENIES: Heat/cold intolerance Gastrointestinal: COMPLAINS OF: Difficulty Swallowing, DENIES: Nausea, Vomiting Genitourinary: COMPLAINS OF: Urinary incontinence Musculoskeletal: DENIES: Back pain Integumentary: COMPLAINS OF: Non-healing sores Hematologic/Lymphatics: DENIES: Bruising Neurologic: COMPLAINS OF: Abnormal gait, DENIES: Seizures Psychiatric: COMPLAINS OF: Depression Other ROS: Limited ROS secondary to clinical condition, aphasic, limited communication. ROS obtained from medical records, patient's family, and clinical presentation. Past Family Social History Coded Allergies: No Known Allergies (Unverified , 08/17/16) Past Medical History Neuro-Behcet's syndrome diagnosed at [place] Left frontal CVA, November 2015 Mural thrombus Brain abscess in 2015 Meningitis Hypertension Diabetes mellitus type II Bedbound state Malnutrition . Past Surgical History PEG tube placement . Reported Medications Atorvastatin 20 mg daily Celexa 20 mg daily Diltiazem 120 mg daily Gabapentin 100 mg 3 times a day Lisinopril 10 mg daily Prednisone 10 mg daily Zantac 750 mg daily Azathioprine 50 mg twice a day Levemir 18 units subcutaneous daily . Current Medications Medications (Trade) Dose Ordered Sig/Beau Route Start Time Stop Time Status Last Admin (Pepcid) 20 mg BID PO 08/13/16 21:00 (D50w (Vial) Inj) 25 ml UNSCH PRN IV PUSH 08/13/16 13:45 (Glucagon Inj) 1 mg UNSCH PRN OTHER 08/13/16 13:45 (NS Flush) 2 ml UNSCH PRN FLUSH 08/13/16 14:00 (NS Flush) 2 ml BID FLUSH 08/13/16 21:00 08/18/16 21:00 (Tylenol) 650 mg Q4H PRN PO 08/13/16 14:00 (Zofran Inj) 4 mg Q6H PRN IVP 08/13/16 14:00 (Narcan Inj) 0.4 mg UNSCH PRN IV 08/13/16 14:00 Atorvastatin Calcium 40 mg 40 mg HS PO 08/13/16 21:00 (D5-1/2 NS + KCl 10 Meq Inj) 1,000 ml @ 150 mls/hr Q6H40M IV 08/14/16 13:30 08/19/16 05:10 Acetaminophen 650 mg 650 mg Q6H PRN RECTAL 08/15/16 16:30 08/17/16 21:49 Pharmacy Profile Note 0 ml @ 0 mls/hr UNSCH OTHER 08/15/16 16:30 Diltiazem HCl 125 mg/Sodium Chloride 125 ml @ 0 mls/hr TITRATE IV 08/16/16 17:30 08/16/16 18:37 (Rocephin Inj/NS Inj) 100 ml @ 200 mls/hr Q12H IV 08/17/16 17:00 08/19/16 05:10 Metoprolol Tartrate 5 mg 5 mg Q6H PRN IV PUSH 08/18/16 15:15 (Vancomycin Inj/ NS 250 ml Inj) 257.5 ml @ 250 mls/hr Q24H IV 08/19/16 10:00 08/19/16 11:09 Miscellaneous Information SPECIFIC LAB TO BE ... ONCE ONCE XX 08/22/16 09:45 08/22/16 09:46 Family History Unable to obtain from the patient secondary to clinical condition. . Substance Use Tobacco: None. Alcohol: None. Prescription med abuse: None. Illicits: None. . Psychosocial History Patient reported as single in medical records. Patricia harrell presented as his . As per medical records, patient residing with and her mother were the primary caregivers. Patient originally from [place]. Unknown if he has any children. . Spiritual/Cultural Factors No spiritual affiliations. . Living Will: Never completed Health Care Surrogate: Never completed Durable Power of Pot[employer] Processing Supervisor: Never completed Health Care Surrogate(s): No living will or healthcare surrogate designation found in medical records. Patricia Harrell acting as healthcare proxy. Unclear at this time if they are legally . . Documented care wishes: No living well documented. Family/friends goals: Pending meeting with family. Ethical and Legal Issues No living will or advanced directives family medical records. Unclear they have been completed in the past. Patricia Harrell acting as healthcare proxy. Unclear at this time if they are legally . . Physical Exam Vital Signs Date Time Temp Pulse Resp B/P Pulse Ox O2 Delivery O2 Flow Rate FiO2 08/19/16 12:00 97.6 79 20 119/91 98 08/19/16 11:00 79 08/19/16 10:14 91 18 121/81 98 08/19/16 10:06 98 18 121/80 95 08/19/16 10:03 97.6 97 18 123/80 98 08/19/16 09:19 97.9 81 18 118/79 97 08/19/16 08:00 82 08/19/16 08:00 97.6 79 18 112/77 98 08/19/16 06:00 76 08/19/16 05:00 80 08/19/16 04:44 97.9 81 118/79 100 08/19/16 04:00 76 08/19/16 03:35 84 08/19/16 02:00 80 08/19/16 01:00 88 08/19/16 00:00 97.6 88 108/78 99 08/19/16 00:00 88 08/19/16 00:00 82 08/18/16 22:00 92 08/18/16 21:39 98.3 87 109/72 98 08/18/16 21:00 86 08/18/16 20:00 75 08/18/16 20:00 84 08/18/16 17:00 92 08/18/16 16:00 98.9 88 16 108/70 98 08/18/16 16:00 82 08/18/16 08/19/16 19:00 07:00 Intake Total 857 ml 1500 ml Output Total 1650 ml 1900 ml Balance -793 ml -400 ml Intake Oral 0 ml IV Total 857 ml 1500 ml Output Urine Total 1650 ml 1900 ml # Bowel Movements 0 1 Exam CONSTITUTIONAL/GENERAL: This is saying patient in moderate distress secondary to crying episode. Patient aphasic, limited communication. Nodding head yes/ no to questions. Mouthing some words. TUBES/LINES/DRAINS: PIV's, PEG tube. SKIN: No jaundice. Skin temperature appropriate. Not diaphoretic. HEAD: Atraumatic. Normocephalic. EYES: Pupils equal and round and reactive. No scleral icterus. No injection or drainage. Excessive blinking on right eye but no redness noted, appears neurological. ENT: Hearing grossly normal. Nose without bleeding or purulent drainage. Throat without visible erythema or exudates. Dry lips. NECK: Trachea midline. Supple, nontender. CARDIOVASCULAR: Regular rate and rhythm without murmurs, gallops, or rubs. No JVD. Peripheral pulses symmetric. RESPIRATORY/CHEST: Symmetric, unlabored respirations. Coarse to auscultation. GASTROINTESTINAL: Abdomen soft, non-tender, nondistended. PEG tube in place, same cover with dressing. No guarding. Bowel sounds present. GENITOURINARY: Without palpable bladder distension. MUSCULOSKELETAL: Extremities without clubbing, cyanosis, or edema. Muscle wasting noted. NEUROLOGICAL: Awake and alert. Following some commands. Right-sided hemiparesis. Weak hand grasp on the left. PSYCHIATRIC: Crying outburst with any interaction during my visit, ask if he was in pain or side for which patient said no. Visibly tearful and in moderate distress. . Diagnostic Tests Laboratory Laboratory Tests Test 08/17/16 08/17/16 08/17/16 08/17/16 06:05 08:16 12:38 16:30 White Blood Count 25.1 TH/MM3 (4.0-11.0) Red Blood Count 3.27 MIL/MM3 (4.50-5.90) Hemoglobin 9.2 GM/DL (13.0-17.0) Hematocrit 28.6 % (39.0-51.0) Mean Corpuscular Volume 87.3 FL (80.0-100.0) Mean Corpuscular Hemoglobin 28.0 PG (27.0-34.0) Mean Corpuscular Hemoglobin 32.1 % Concent (32.0-36.0) Red Cell Distribution Width 14.9 % (11.6-17.2) Platelet Count 355 TH/MM3 (150-450) Mean Platelet Volume 8.5 FL (7.0-11.0) Sodium Level 141 MEQ/L (136-145) Potassium Level 3.5 MEQ/L (3.5-5.1) Chloride Level 108 MEQ/L (98-107) Carbon Dioxide Level 24.1 MEQ/L (21.0-32.0) Anion Gap 9 MEQ/L (5-15) Blood Urea Nitrogen 12 MG/DL (7-18) Creatinine 1.35 MG/DL (0.60-1.30) Estimat Glomerular Filtration 70 ML/MIN (>89) Rate Random Glucose 137 MG/DL (74-106) Calcium Level 8.2 MG/DL (8.5-10.1) Vancomycin Level Trough 38.4 MCG/ML 17.3 MCG/ML (5.0-10.0) (5.0-10.0) Prothrombin Time 12.7 SEC (9.8-11.6) Prothromb Time International 1.1 RATIO Ratio Activated Partial 40.0 SEC Thromboplast Time (24.3-30.1) CSF Volume (Tube 1) 2.0 ML CSF Supernatant Color (tube 1) CLEAR (CLEAR) CSF WBC (Tube 1) 45 /MM3 (0-10) CSF RBC (Tube 1) 0 /MM3 (NONE) CSF Volume (Tube 2) 2.4 ML CSF Supernatant Color (tube 2) CLEAR (CLEAR) CSF Gross Blood (Tube 2) 0 (0) CSF Volume (Tube 3) 2.0 ML CSF Supernatant Color (tube 3) CLEAR (CLEAR) CSF Gross Blood (Tube 3) 0 (0) CSF Volume (Tube 4) 3.0 ML CSF Supernatant Color (tube 4) CLEAR (CLEAR) CSF Gross Blood (Tube 4) TRACE (0) CSF Neutrophils 0 % CSF Lymphocytes 96 % CSF Monocytes 4 % CSF Glucose 64 MG/DL (40-80) CSF Total Protein 97.7 MG/DL (15.0-45.0) Herpes Simplex Virus I DNA Negative (PCR) (Negative) Herpes Simplex Virus II DNA Negative (PCR) (Negative) Test 08/18/16 08/19/16 05:08 06:30 White Blood Count 19.2 TH/MM3 11.1 TH/MM3 (4.0-11.0) (4.0-11.0) Red Blood Count 3.36 MIL/MM3 3.30 MIL/MM3 (4.50-5.90) (4.50-5.90) Hemoglobin 9.4 GM/DL 9.3 GM/DL (13.0-17.0) (13.0-17.0) Hematocrit 29.7 % 28.7 % (39.0-51.0) (39.0-51.0) Mean Corpuscular Volume 88.2 FL 87.1 FL (80.0-100.0) (80.0-100.0) Mean Corpuscular Hemoglobin 28.0 PG 28.1 PG (27.0-34.0) (27.0-34.0) Mean Corpuscular Hemoglobin 31.8 % 32.2 % Concent (32.0-36.0) (32.0-36.0) Red Cell Distribution Width 15.0 % 15.2 % (11.6-17.2) (11.6-17.2) Platelet Count 371 TH/MM3 420 TH/MM3 (150-450) (150-450) Mean Platelet Volume 8.4 FL 8.2 FL (7.0-11.0) (7.0-11.0) Sodium Level 145 MEQ/L 147 MEQ/L (136-145) (136-145) Potassium Level 3.5 MEQ/L 3.5 MEQ/L (3.5-5.1) (3.5-5.1) Chloride Level 111 MEQ/L 114 MEQ/L (98-107) (98-107) Carbon Dioxide Level 25.2 MEQ/L 26.7 MEQ/L (21.0-32.0) (21.0-32.0) Anion Gap 9 MEQ/L (5-15) 6 MEQ/L (5-15) Blood Urea Nitrogen 13 MG/DL (7-18) 9 MG/DL (7-18) Creatinine 1.67 MG/DL 1.49 MG/DL (0.60-1.30) (0.60-1.30) Estimat Glomerular Filtration 54 ML/MIN (>89) 62 ML/MIN (>89) Rate Random Glucose 129 MG/DL 142 MG/DL (74-106) (74-106) Calcium Level 8.8 MG/DL 8.7 MG/DL (8.5-10.1) (8.5-10.1) Random Vancomycin Level 16.8 COMMENT Result Diagram: 08/19/16 0630 08/19/16 0630 Microbiology Microbiology Date/Time Procedure Status Source Growth 08/17/16 07:56 Gram Stain Ordered Cerebral Spinal Fluid Lumbar Puncture Pending 08/17/16 07:56 CSF Culture Ordered Cerebral Spinal Fluid Lumbar Puncture Pending 08/17/16 12:38 Gram Stain - Final Resulted Cerebral Spinal Fluid Lumbar Puncture 08/17/16 12:38 CSF Culture - Preliminary Resulted Cerebral Spinal Fluid Lumbar Puncture NO GROWTH IN 48 HOURS. 08/17/16 12:38 Fungal Smear - Final Resulted Cerebral Spinal Fluid Lumbar Puncture NO FUNGAL ELEMENTS SEEN. 08/17/16 12:38 Fungal Culture Resulted Cerebral Spinal Fluid Lumbar Puncture Pending Imaging Last Impressions Lumbar Puncture Fluoroscopy 08/17/16 0000 Signed Impressions: Service Date/Time: Wednesday, August 17, 2016 12:26 - CONCLUSION: Uncomplicated fluoroscopically guided lumbar puncture. Vishal Beckford Jr., MD Brain MRI 08/17/16 Signed Impressions: Service Date/Time: Wednesday, August 17, 2016 13:28 - CONCLUSION: Remote long-standing areas of abnormality in the brainstem and middle cerebellar peduncle consistent with remote infarcts or contusion. No acute intracranial abnormality. Chacho Bright MD Abdomen X-Ray 08/17/16 Signed Impressions: Service Date/Time: Wednesday, August 17, 2016 13:02 - CONCLUSION: No evidence of obstruction. No MRI incompatible foreign body is identified. Chacho Bright MD Head CT 08/16/16 Signed Impressions: Service Date/Time: Tuesday, August 16, 2016 09:55 - CONCLUSION: Chronic ischemic changes left frontal lobe possibly from evidence of previous ventriculostomy placement, unchanged. No acute intracranial abnormality. Gen Potter MD Chest X-Ray 08/15/16 1617 Signed Impressions: Service Date/Time: Monday, August 15, 2016 16:35 - CONCLUSION: No acute disease. No significant change has occurred. No significant change has occurred. Chacho Bright MD Modified Barium Swallow 08/15/16 Signed Impressions: Service Date/Time: Monday, August 15, 2016 00:00 - CONCLUSION: See report above and speech pathology report Chacho Bright MD Procedures * 08/19/16 -PEG tube placement * 08/17/16- lumbar puncture . Patient/Family Conference Present at Family Conference: No family available. . Issues Discussed: Assessment and Plan Disease Oriented Problem List: (1) Sepsis (2) Neurologic type Behcet's syndrome (3) Impaired mobility and activities of daily living Symptom Scale: (1) Debility 0-10 Scale: Unable to quantify Comment: Progressive secondary to neuro-Behcet's syndrome, CVA. Now bed bound. (2) Depression 0-10 Scale: Unable to quantify Comment: History of depression, on Celexa at home. Crying outburst. Pertinent Non-Medical Issues Psychosocial: Reported as . Unknown if he has any children. Spiritual: No spiritual affiliations. Legal: No living will or advanced directives found in medical records. Patricia Harrell presented as and has been acting as healthcare proxy. Ethical issues impacting care: No living will or advanced directives found in medical records. Patricia Harrell presented as and has been acting as healthcare proxy. . Important Contacts Patricia Harrell -reported as . [phone]. . Prognosis Mr. 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 Patient presented to the ED on 08/13/16 via EMS were reports of decreased oral intake for the prior 2-3 days and skin tear to left upper extremity. He was admitted for sepsis. Patient is at high risk for further complications, continue decline and . His diagnosis of neuro- Behcet's syndrome was done at [facility], pending medical records for confirmation. Unknown if prognosis was provided. Evidence shows high mortality in neuro-Behcet's syndrome of about 25% in the first year after neurological manifestations. . Plan * CODE STATUS: Unclear at this time. Several attempts to contact . Patient listed as FULL CODE in prior admissions. * HEALTHCARE DECISION-MAKER: No living will or healthcare surrogate designation found in medical records. Patricia Harrell acting as healthcare proxy. Unclear at this time if they are legally . * GOALS OF CARE: Pending family meeting to discuss goals of care. Several attempts to contact patient's . Palliative care will continue to follow-up. * SYMPTOMS: == Depression/crying-tearful outbursts. Patient found with profound crying/tearful outburst with interaction, inconsolable. Patient with history of depression and taking Celexa 20 mg daily at home, this was not continued during this admission. Patient was seen by psychiatry in November 2015 secondary to crying outbursts. Pseudobulbar affect considered as possible etiology, a trial of Nuedexta was suggested but not started as symptoms improved. Palliative care recommends psychiatry consultation for evaluation and management. == Debility, likely to continue to worsen. Unclear if patient would benefit from rehabilitation at discharge. Recommend PT consultation for evaluation. * Case discussed with Dr. Jose Elias Cornell. * Palliative care contact information has been provided to patient's via telephone voicemail. * Palliative care will continue to follow-up with this patient and family for clarifications of goals of care and support during this difficult time. . Time Spent Total Floor Time (mins): 75 (Total care to include review and summarization of available medical records including multiple prior hospitalizations, physical exam, several attempts at contacting , and case discussion with Dr. Reyes. ) >50% Counseling/Coord of Care: Yes Thank you for the opportunity to participate in the care of Mr. Mendoza. Attestation To help prompt me to consider important information that might be impacting today's encounter and assessment, information from prior notes written by myself or my colleagues may have been "brought forward" into today's note. My signature on this note, however, is an attestation that I personally performed the exam, history, and/or decision-making noted today, and, unless otherwise indicated, the interactions with patient, family, and staff as well as the review of records all occurred today. I also attest that the listed assessment and stated plan reflect my best clinical judgment today based on the combination of historical information, prior notes, and today's exam/ interactions. When time spent is documented, it refers only to time spent today by the signer, or if indicated, combined time spent today by collaborating physician/nurse practitioner. Esther Varma Aug 19, 2016 16:54
[2016-08-19] MEDS: ATORVASTATIN 40 MG TAB PO SCH (20:51)
--- NOTE | 2016-08-19 23:46 | RADRPT ---
EXAM DATE/TIME: 08/19/2016 22:32 [facility] COMPARISON: No previous studies available for comparison. INDICATIONS : Bilateral arm swelling. MEDICAL HISTORY : Stroke. Hypercholesterolemia. Hypertension. Diabetes. SURGICAL HISTORY : Abdominal surgery. ENCOUNTER: Initial ACUITY: 1 day PAIN SCORE: Non-responsive LOCATION: Bilateral arms. FINDINGS: RIGHT UPPER EXTREMITY: There is spontaneous flow documented in the brachial, basilic, cephalic, axillary, and subclavian vei ns. The vessels are compressible and augmentation response is documented. No filling defects are se en. The flow is phasic with respiration. Direction of flow in the jugular vein is caudal. LEFT UPPER EXTREMITY: There is spontaneous flow documented in the brachial, basilic, axillary, and subclavian veins. The v essels are compressible and augmentation response is documented. No filling defects are seen. The f low is phasic with respiration. Direction of flow in the jugular vein is caudal. There is occlusive thrombus in the distal cephalic vein at the antecubital fossa. CONCLUSION: Left cephalic vein occlusive thrombus noted in the antecubital fossa. Baldev Vu MD on August 19, 2016 at 23:44 Board Certified Radiologist. This report was verified electronically.
[2016-08-20] VITALS (7 sets, daily range): BP systolic 115–182; BP diastolic 64–89; PULSE 65–97; RESP 14–19; TEMP 96.4–97.9; O2SAT 96–100
[2016-08-20] MEDS: cefTRIAXone INJ 2,000 MG in SODIUM CHLORIDE 0.9% INJ 100 ML IV SCH ×2 (05:35→16:49)
[2016-08-20] MEDS: D5-1/2 NS + KCL 10 MEQ INJ 1,000 ML IV SCH ×4 (05:35→23:31)
[2016-08-20] MEDS: INSULIN ASPART SUPPLEMENTAL SCALE SQ SCH ×4 (06:10→21:00)
--- NOTE | 2016-08-20 07:05 | MR ---
cc: KATIA FRANCO M.D. DATE: 08/19/2016 DATE OF 1970 REFERRING PHYSICIAN PROCEDURE Upper gastrointestinal endoscopy with percutaneous endoscopic gastrostomy tube placement. INDICATION 46-year-old gentleman who has dysphagia, needs percutaneous endoscopic gastrostomy tube for feeding purposes. PROCEDURE After informing the patient of procedure and complication consent was signed. The patient was placed on his back, consent was obtained from power of document review attorney. The patient was sedated by anesthesia scope was placed in the mouth advanced under video guidance to the second portion of the duodenum. The scope was withdrawn back to the stomach. Retroflexion was performed. The area for the percutaneous endoscopic gastrostomy tube was identified by illumination and intention sterilized with Betadine, injected with lidocaine and a 20-Upper Sorbian Microvasive percutaneous endoscopic gastrostomy tube was placed in a pull technique without immediate complication. Verification of the percutaneous endoscopic gastrostomy tube was done endoscopically. FINDINGS Normal endoscopy Percutaneous endoscopic gastrostomy tube was placed as above. RECOMMENDATIONS 1. N.p.o. For 6 hours then may start feeding and using the percutaneous endoscopic gastrostomy tube for medication if site is okay. 2. Antibiotic was not given, the patient was already on antibiotics. MD FERNANDA Hameed/dipika /10:01 AM /6:42 AM
[2016-08-20 07:35] LABS: CREATININE 1.26 MG/DL (0.60-1.30)
[2016-08-20] MEDS: SODIUM CHLORIDE 0.9% FLUSH 5 ML FLUSH FLUSH SCH ×2 (09:00→21:57)
[2016-08-20] MEDS: FAMOTIDINE 20 MG TAB PO SCH ×2 (10:08→21:56)
[2016-08-20] MEDS: VANCOMYCIN INJ 750 MG in SODIUM CHLOR 0.9% 250 ML INJ 250 ML IV SCH (10:09)
--- NOTE | 2016-08-20 13:24 | HHI.GIFU ---
Subjective Remarks Resting in bed. No distress. Shakes his head "no" when asked if he has abdominal pain. Objective Vitals I&O Vital Signs Date Time Temp Pulse Resp B/P Pulse Ox O2 Delivery O2 Flow Rate FiO2 08/20/16 12:16 96.8 78 16 115/89 98 08/20/16 08:15 96.4 79 16 121/73 98 08/20/16 04:00 97.2 97 18 182/ 96 08/20/16 00:00 97.8 80 14 120/70 98 08/19/16 20:00 80 08/19/16 20:00 97.9 74 18 121/74 97 08/19/16 18:44 98.1 84 18 119/79 99 08/19/16 16:00 97.5 80 18 110/84 97 08/19/16 15:00 78 I/O 08/19/16 08/19/16 08/19/16 08/20/16 08/20/16 08/20/16 06:59 14:59 22:59 06:59 14:59 22:59 Intake Total 1500 ml 300 ml 2429 ml Output Total 1900 ml 1575.0 ml 1400 ml 0 ml Balance -400 ml 300 ml -1575.0 ml 1029 ml 0 ml IV Total 1500 ml 1850 ml Tube Feeding 279 ml Other 300 ml 300 ml Output Urine Total 1900 ml 1575 ml 1400 ml Tube Feeding Residual Discard 0 ml 0 ml 0 ml # Bowel Movements 1 0 Laboratory Laboratory Tests Test 08/20/16 06:40 Creatinine 1.26 Estimat Glomerular Filtration 75 Rate Date/Time Procedure Status Source Growth 08/17/16 12:38 Gram Stain - Final Complete Cerebral Spinal Fluid Lumbar Puncture 08/17/16 12:38 CSF Culture - Final Complete Cerebral Spinal Fluid Lumbar Puncture NO GROWTH IN 72 HOURS 08/17/16 12:38 Fungal Smear - Final Resulted Cerebral Spinal Fluid Lumbar Puncture NO FUNGAL ELEMENTS SEEN. 08/17/16 12:38 Fungal Culture Resulted Cerebral Spinal Fluid Lumbar Puncture Pending 08/17/16 07:56 Gram Stain Ordered Cerebral Spinal Fluid Lumbar Puncture Pending 08/17/16 07:56 CSF Culture Ordered Cerebral Spinal Fluid Lumbar Puncture Pending 08/15/16 16:03 Aerobic Blood Culture - Final Complete Blood Peripheral NO GROWTH IN 5 DAYS 08/15/16 16:03 Anaerobic Blood Culture - Final Complete Blood Peripheral NO GROWTH IN 5 DAYS Imaging Last Impressions Upper Extremity Ultrasound 08/19/16 Signed Impressions: Service Date/Time: Friday, August 19, 2016 22:32 - CONCLUSION: Left cephalic vein occlusive thrombus noted in the antecubital fossa. Baldev Vu MD Lumbar Puncture Fluoroscopy 08/17/16 Signed Impressions: Service Date/Time: Wednesday, August 17, 2016 12:26 - CONCLUSION: Uncomplicated fluoroscopically guided lumbar puncture. Vishal Beckford Jr., MD Brain MRI 08/17/16 Signed Impressions: Service Date/Time: Wednesday, August 17, 2016 13:28 - CONCLUSION: Remote long-standing areas of abnormality in the brainstem and middle cerebellar peduncle consistent with remote infarcts or contusion. No acute intracranial abnormality. Chacho Bright MD Abdomen X-Ray 08/17/16 Signed Impressions: Service Date/Time: Wednesday, August 17, 2016 13:02 - CONCLUSION: No evidence of obstruction. No MRI incompatible foreign body is identified. Chacho Bright MD Head CT 08/16/16 Signed Impressions: Service Date/Time: Tuesday, August 16, 2016 09:55 - CONCLUSION: Chronic ischemic changes left frontal lobe possibly from evidence of previous ventriculostomy placement, unchanged. No acute intracranial abnormality. Gen Potter MD Chest X-Ray 08/15/16 1617 Signed Impressions: Service Date/Time: Monday, August 15, 2016 16:35 - CONCLUSION: No acute disease. No significant change has occurred. No significant change has occurred. Chacho Bright MD Modified Barium Swallow 08/15/16 Signed Impressions: Service Date/Time: Monday, August 15, 2016 00:00 - CONCLUSION: See report above and speech pathology report Chacho Bright MD Physical Exam HEENT: Normocephalic; atraumatic; no jaundice. CHEST: Resp even/unlabored, diminished bases CARDIAC: RRR ABDOMEN: Soft, nondistended, nontender; no hepatosplenomegaly; bowel sounds are present in all four quadrants.PEG tube site without redness or swellilng EXTREMITIES: No clubbing, cyanosis, or edema. SKIN: Normal; no rash; no jaundice. NEEDLE MAKER: Nonverbal, but nods head appropriately and follows commands Assessment and Plan Plan ASSESSMENT: - Dysphagia. 46 year old male with of history neuro-Behcet's diagnosed at [place] , left frontal CVA, mural thrombus, brain abscess, meningitis, hypertension, diabetes, presents for decreased oral intake over the past 23 days, and skin tear at the left upper extremity and was found sepsis, leukocytosis of unknown source. MBS----> severe oral/pharyngeal phase dysphagia. Will need PEG as primary nutrition, pleasure feeds of liquids thickened to honey consistency tsp by tsp and/or purees. S/P EGD with PEG tube placement (07/19/16). Site without redness or swelling. Client Support Professional recommends Glucerna 1.0 at 75cc/hr. - Sepsis/leukocytosis/febrile/ tachy cardiac - no known etiology, abx, ID on the case, S/P LP - Left antecubital skin tear- wound care nurse on the case, - History of neuro-Behcet's diagnosed at [place], left frontal CVA, bedbound, nonverbal, mural thrombus, brain abscess, meningitis, hypertension, diabetes per attending Plan: - Puree, honey thickened liquids for pleasure - Glucerna 1.0 at 75 cc/hr - ST - GI will sign off, please reconsult as needed - Pt seen and examined by dr. mobley and myself and this note is written on his behalf Marlys Rivers Aug 20, 2016 13:24
--- NOTE | 2016-08-20 15:37 | HHI.PR ---
Subjective Remarks Patient appear more calm today. He nod yes and no. Denies pain. No crying outburst today. Objective Vitals Vital Signs Date Time Temp Pulse Resp B/P Pulse Ox O2 Delivery O2 Flow Rate FiO2 08/20/16 12:16 96.8 78 16 115/89 98 08/20/16 08:15 96.4 79 16 121/73 98 08/20/16 04:00 97.2 97 18 182/ 96 08/20/16 00:00 97.8 80 14 120/70 98 08/19/16 20:00 80 08/19/16 20:00 97.9 74 18 121/74 97 08/19/16 18:44 98.1 84 18 119/79 99 08/19/16 16:00 97.5 80 18 110/84 97 I/O 08/19/16 08/19/16 08/19/16 08/20/16 08/20/16 08/20/16 07:00 15:00 23:00 07:00 15:00 23:00 Intake Total 1500 ml 300 ml 2429 ml Output Total 1900 ml 1575.0 ml 1400 ml 0 ml Balance -400 ml 300 ml -1575.0 ml 1029 ml 0 ml IV Total 1500 ml 1850 ml Tube Feeding 279 ml Other 300 ml 300 ml Output Urine Total 1900 ml 1575 ml 1400 ml Tube Feeding Residual Discard 0 ml 0 ml 0 ml # Bowel Movements 1 0 Result Diagram: 08/19/16 0630 08/20/16 0640 Objective Remarks GENERAL: Chronically ill-appearing male in no apparent distress. Can nod yes or no to questions. SKIN: left upper back and medial antecubital area with skin tears. Wounds appear clean. Dried wound on the left wrist. CARDIOVASCULAR: Normal rate and regular rhythm without murmurs, gallops, or rubs. RESPIRATORY: Breath sounds equal and clear to auscultation bilaterally. GASTROINTESTINAL: Abdomen soft, non-distended. Normal active bowel sounds MUSCULOSKELETAL: Extremities without some evidence of contractures. NEURO: Patient is aphasic, Can nod yes or no to questions. Follow commands. Generalized weakness. Right hemiparesis from previous stroke. PSYCH: Calm. No episodes of crying outburst. 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 According to the patient's , he has been having a declining course. Patient appear to be stabilizing but I doubt he will be able to go back home. Certainly at risk for continuing decline. Appreciate palliative care following. Sepsis, Appear to be improving after Rocephin started. Initially thought to be due to UTI but urine culture is neg: On arrival patient was tachycardic with heart rate 131, rectal temperature 99.8. Labs remarkable for WBC 14.9 K, elevated BUN 28, lactic acid 1.7. Urinalysis shows possible UTI with bacteria. CXR images reviewed, unremarkable. Currently on Rocephin and vancomycin. One out of 4 blood cultures with staph epidermidis. ?Contaminant. Repeat blood cultures unremarkable. Brain CT and MRI unremarkable. Status post LP. CSF culture negative. -Sepsis improving on antibiotics. Discussed with Dr. Reyes. Skin lesions could have been the source. Neuro-Behcet: No new changes in imaging. Patient followed by Neurology. If neuro status worsening, advised starting steroid. Continue to monitor. Decreased Oral Intake and dysphagia: Speech therapy following. S/P barium swallow. Patient needs alternate method of feeding with PEG due to severe dysphagia. GI following. S/P PEG - Continue tube feeding. Acute renal insufficiency: Probably combination of pre renal azotemia and sepsis. Insensible loss due to fever. improving with IVF. Monitor and avoid nephrotoxins. Intermittent Sinus Tachycardia: Patient has been on Cardizem for this in the past. Heart rate is now normal. Continue to monitor on telemetry. Left upper back and medial antecubital skin tear: Etiology unclear. Family reports that it started as a blister. ?pressure due to lack of turning. Could have turned into cellulitis. Continue dressing changes per RN. Diabetes: chronic, monitor Accu-Cheks and cover with low-dose SSI. All other medical conditions stable, continue home meds. DVT Prophylaxis: teds/SCDs Problem Qualifiers (1) UTI (urinary tract infection): Qualified Code: N39.0 - Urinary tract infection without hematuria, site unspecified Leticia Garrett MD Aug 20, 2016 15:37
[2016-08-20] MEDS: ATORVASTATIN 40 MG TAB PO SCH (21:57)
[2016-08-21] VITALS (10 sets, daily range): BP systolic 112–132; BP diastolic 69–91; PULSE 75–84; RESP 18–20; TEMP 96.4–98.1; O2SAT 96–100
[2016-08-21] MEDS: cefTRIAXone INJ 2,000 MG in SODIUM CHLORIDE 0.9% INJ 100 ML IV SCH ×2 (04:27→16:43)
[2016-08-21] MEDS: D5-1/2 NS + KCL 10 MEQ INJ 1,000 ML IV SCH (04:33)
[2016-08-21] MEDS: INSULIN ASPART SUPPLEMENTAL SCALE SQ SCH ×4 (06:28→21:00)
[2016-08-21] MEDS: SODIUM CHLORIDE 0.9% FLUSH 5 ML FLUSH FLUSH SCH ×2 (07:58→22:06)
[2016-08-21] MEDS: FAMOTIDINE 20 MG TAB PO SCH ×2 (08:00→22:06)
[2016-08-21 08:36] LABS: HEMATOCRIT 32.4 % (39.0-51.0); HEMOGLOBIN 10.5 GM/DL (13.0-17.0); MEAN CORPUSCULAR HEMOGLOBIN 28.5 PG (27.0-34.0); MEAN CORPUSCULAR HGB CONC 32.4 % (32.0-36.0); MEAN PLATELET VOLUME 8.3 FL (7.0-11.0); PLATELET COUNT 466 TH/MM3 (150-450); RED BLOOD COUNT 3.68 MIL/MM3 (4.50-5.90); RED CELL DISTRIBUTION WIDTH 15.2 % (11.6-17.2); WHITE BLOOD COUNT 8.4 TH/MM3 (4.0-11.0)
[2016-08-21 09:15] LABS: BICARBONATE 25.5 MEQ/L (21.0-32.0); CALCIUM 8.4 MG/DL (8.5-10.1); CREATININE 1.16 MG/DL (0.60-1.30)
[2016-08-21] MEDS: VANCOMYCIN INJ 750 MG in SODIUM CHLOR 0.9% 250 ML INJ 250 ML IV SCH (10:10)
--- NOTE | 2016-08-21 14:19 | HHI.PR ---
Subjective Remarks Patient looks comfortable today. Nod yes and no to questions. He denies pain. Objective Vitals Vital Signs Date Time Temp Pulse Resp B/P Pulse Ox O2 Delivery O2 Flow Rate FiO2 08/21/16 12:18 97.5 81 18 125/84 97 08/21/16 08:00 96.9 75 18 127/76 96 08/21/16 07:24 76 08/21/16 07:15 76 08/21/16 06:20 97.9 76 19 115/69 100 08/21/16 00:00 98.1 77 20 112/70 100 08/20/16 22:15 97.9 78 19 115/64 100 08/20/16 20:00 83 08/20/16 16:00 97.0 83 17 131/87 98 I/O 08/20/16 08/20/16 08/20/16 08/21/16 08/21/16 08/21/16 07:00 15:00 23:00 07:00 15:00 23:00 Intake Total 2429 ml 120 ml 1514 ml 2303 ml Output Total 1400 ml 1500 ml 900 ml 1200 ml 0 ml Balance 1029 ml -1380 ml 614 ml 1103 ml 0 ml Intake Oral 120 ml 0 ml 0 ml IV Total 1850 ml 789 ml 1453 ml Tube Feeding 279 ml 525 ml 600 ml Tube Irrigant 250 ml Other 300 ml 200 ml Output Urine Total 1400 ml 1500 ml 900 ml 1200 ml Tube Feeding Residual Discard 0 ml 0 ml 0 ml 0 ml # Bowel Movements 1 0 0 Result Diagram: 08/21/1673208/21/16732 Objective Remarks GENERAL: Chronically ill-appearing male in no apparent distress. Can nod yes or no to questions. SKIN: left upper back and medial antecubital area with skin tears. Wounds appear clean. Dried wound on the left wrist. CARDIOVASCULAR: Normal rate and regular rhythm without murmurs, gallops, or rubs. RESPIRATORY: Breath sounds equal and clear to auscultation bilaterally. GASTROINTESTINAL: Abdomen soft, non-distended. Normal active bowel sounds MUSCULOSKELETAL: Extremities without some evidence of contractures. NEURO: Patient is aphasic, Can nod yes or no to questions. Follow commands. Generalized weakness. Right hemiparesis from previous stroke. PSYCH: Calm. No episodes of crying outburst. 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 According to the patient's , he has been having a declining course. Patient appear to be stabilizing for this hospitalization but I doubt he will be able to go back home. Certainly at risk for continuing decline. Appreciate palliative care following. Sepsis, Appear to be improving after Rocephin started. Initially thought to be due to UTI but urine culture is neg: On arrival patient was tachycardic with heart rate 131, rectal temperature 99.8. Labs remarkable for WBC 14.9 K, elevated BUN 28, lactic acid 1.7. Urinalysis shows possible UTI with bacteria. CXR images reviewed, unremarkable. Currently on Rocephin and vancomycin. One out of 4 blood cultures with staph epidermidis. ?Contaminant. Repeat blood cultures unremarkable. Brain CT and MRI unremarkable. Status post LP. CSF culture negative. -Sepsis improving on antibiotics. Discussed with Dr. Reyes. Skin lesions could have been the source. Neuro-Behcet: No new changes in imaging. Patient followed by Neurology. If neuro status worsening, advised starting steroid. Continue to monitor. - Consult OT, PT Decreased Oral Intake and dysphagia: Speech therapy following. S/P barium swallow. Patient needs alternate method of feeding with PEG due to severe dysphagia. GI following. S/P PEG - Continue tube feeding. Acute renal insufficiency: Probably combination of pre renal azotemia and sepsis. Insensible loss due to fever. Resolved with IVF. Monitor and avoid nephrotoxins. Intermittent Sinus Tachycardia: Patient has been on Cardizem for this in the past. Heart rate is now normal. Continue to monitor on telemetry. Left upper back and medial antecubital skin tear: Etiology unclear. Family reports that it started as a blister. ?pressure due to lack of turning. Could have turned into cellulitis. Continue dressing changes per RN. Diabetes: chronic, monitor Accu-Cheks and cover with low-dose SSI. All other medical conditions stable, continue home meds. DVT Prophylaxis: teds/SCDs Problem Qualifiers (1) UTI (urinary tract infection): Qualified Code: N39.0 - Urinary tract infection without hematuria, site unspecified Leticia Garrett MD Aug 21, 2016 14:19
[2016-08-21] MEDS: ATORVASTATIN 40 MG TAB PO SCH (22:06)
[2016-08-22] VITALS (7 sets, daily range): BP systolic 97–124; BP diastolic 72–86; PULSE 75–86; RESP 16–18; TEMP 96.4–98.6; O2SAT 98–100
[2016-08-22] MEDS: cefTRIAXone INJ 2,000 MG in SODIUM CHLORIDE 0.9% INJ 100 ML IV SCH ×2 (05:23→17:31)
[2016-08-22] MEDS: INSULIN ASPART SUPPLEMENTAL SCALE SQ SCH ×4 (06:17→21:00)
[2016-08-22 07:49] LABS: HEMATOCRIT 31.6 % (39.0-51.0); MEAN CELL VOLUME 87.5 FL (80.0-100.0); MEAN CORPUSCULAR HEMOGLOBIN 27.8 PG (27.0-34.0); MEAN CORPUSCULAR HGB CONC 31.8 % (32.0-36.0); MEAN PLATELET VOLUME 7.7 FL (7.0-11.0); PLATELET COUNT 499 TH/MM3 (150-450); RED BLOOD COUNT 3.61 MIL/MM3 (4.50-5.90); RED CELL DISTRIBUTION WIDTH 14.8 % (11.6-17.2); WHITE BLOOD COUNT 9.6 TH/MM3 (4.0-11.0)
[2016-08-22 08:05] LABS: BICARBONATE 27.9 MEQ/L (21.0-32.0); CALCIUM 8.8 MG/DL (8.5-10.1); CREATININE 1.34 MG/DL (0.60-1.30)
[2016-08-22] MEDS: FAMOTIDINE 20 MG TAB PO SCH ×2 (09:02→22:21)
[2016-08-22] MEDS: SODIUM CHLORIDE 0.9% FLUSH 5 ML FLUSH FLUSH SCH ×2 (09:11→22:21)
[2016-08-22] MEDS: VANCOMYCIN INJ 750 MG in SODIUM CHLOR 0.9% 250 ML INJ 250 ML IV SCH (11:27)
--- NOTE | 2016-08-22 13:11 | HHI.PR ---
Subjective Remarks Patient can nod yes and no. He is having crying outburst again. He denies any pain. Objective Vitals Vital Signs Date Time Temp Pulse Resp B/P Pulse Ox O2 Delivery O2 Flow Rate FiO2 08/22/16 08:00 97.3 86 18 116/75 100 08/22/16 06:07 97.4 75 16 122/80 99 08/22/16 00:00 96.6 85 16 120/86 99 08/21/16 21:13 82 08/21/16 20:00 96.8 84 18 130/84 99 08/21/16 17:02 80 08/21/16 16:00 96.4 80 18 132/91 98 I/O 08/21/16 08/21/16 08/21/16 08/22/16 08/22/16 08/22/16 07:00 15:00 23:00 07:00 15:00 23:00 Intake Total 2303 ml 240 ml 2366 ml 1105 ml Output Total 1200 ml 1850 ml 1500 ml 700 ml Balance 1103 ml -1610 ml 866 ml 405 ml Intake Oral 0 ml 240 ml 120 ml IV Total 1453 ml 1331 ml 105 ml Tube Feeding 600 ml 615 ml 600 ml Tube Irrigant 250 ml Other 300 ml 400 ml Output Urine Total 1200 ml 1850 ml 1500 ml 700 ml Stool Total 0 ml Tube Feeding Residual Discard 0 ml # Bowel Movements 0 1 0 Result Diagram: 08/22/16 0654 08/22/16 0654 Objective Remarks GENERAL: Chronically ill-appearing male in no apparent distress. Can nod yes or no to questions. SKIN: left upper back and medial antecubital area with skin tears. Wounds appear clean. Dried wound on the left wrist. CARDIOVASCULAR: Normal rate and regular rhythm without murmurs, gallops, or rubs. RESPIRATORY: Breath sounds equal and clear to auscultation bilaterally. GASTROINTESTINAL: Abdomen soft, non-distended. Normal active bowel sounds MUSCULOSKELETAL: Extremities without some evidence of contractures. NEURO: Patient is aphasic, Can nod yes or no to questions. Follow commands. Generalized weakness. Right hemiparesis from previous stroke. PSYCH: Calm. Having crying outburst again. 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 According to the patient's , he has been having a declining course. Patient appear to be stabilizing for this hospitalization but I doubt he will be able to go back home. Certainly at risk for continuing decline. Appreciate palliative care following. Sepsis, Appear to be improving after Rocephin started. Initially thought to be due to UTI but urine culture is neg: On arrival patient was tachycardic with heart rate 131, rectal temperature 99.8. Labs remarkable for WBC 14.9 K, elevated BUN 28, lactic acid 1.7. Urinalysis shows possible UTI with bacteria. CXR images reviewed, unremarkable. Currently on Rocephin and vancomycin. One out of 4 blood cultures with staph epidermidis. ?Contaminant. Repeat blood cultures unremarkable. Brain CT and MRI unremarkable. Status post LP. CSF culture negative. -Sepsis improving on antibiotics. Discussed with Dr. Reyes. Skin lesions could have been the source. - Antibiotics course per ID. Neuro-Behcet: No new changes in imaging. Patient followed by Neurology. If neuro status worsening, advised starting steroid. Continue to monitor. - Consult OT, PT Probable depression: Patient having crying outbursts. He has done that in the past. Could be related to depression. Consult psychiatry. Decreased Oral Intake and dysphagia: Speech therapy following. S/P barium swallow. Patient with severe dysphagia requiring PEG. GI following. S/P PEG - Continue tube feeding. - Increase free water to 250 cc every 6 hours Acute renal insufficiency: Probably combination of pre renal azotemia and sepsis. Insensible loss due to fever. Improved with IVF. Monitor and avoid nephrotoxins. Intermittent Sinus Tachycardia: Patient has been on Cardizem for this in the past. Heart rate is now normal. Continue to monitor on telemetry. Left upper back and medial antecubital skin tear: Etiology unclear. Family reports that it started as a blister. ?pressure due to lack of turning. Could have turned into cellulitis. Continue dressing changes per RN. Diabetes: chronic, monitor Accu-Cheks and cover with low-dose SSI. All other medical conditions stable, continue home meds. DVT Prophylaxis: teds/SCDs Discharge Planning Pending improvement. Patient needs long-term care placement. Case management following. Problem Qualifiers (1) UTI (urinary tract infection): Qualified Code: N39.0 - Urinary tract infection without hematuria, site unspecified Leticia Garrett MD Aug 22, 2016 13:11
--- NOTE | 2016-08-22 14:51 | HHI.HCPN ---
Reason for visit a. To assist with evaluation and management of symptoms including: debility , dysphagia and depression/tearful outbursts. b. To assist medical decision maker(s) with: better understanding of current medical conditions; weighing benefits/burdens of medical treatment options; making medical treatment decisions. . Subjective/Interval History Patient seen in his room, awake and alert alert. Attempting to communicate by mouthing some words and noting head to yes/no questions. Denies any shortness of breath, nausea/vomiting, pain or discomfort. Reports feeling "fine". Did not have a crying episode during my visit at this time. Appears very calm. No family at bedside. Patient afebrile, stable BP. Tolerating her room air. Laboratory to include WBC 9.6, Hgb 10.0, platelets 499. Sodium 142, potassium 3.7, BUN/creatinine 7/1.34. Upper extremity ultrasound revealing left cephalic vein thrombus. Initial PT evaluation completed today, plan to follow-up for passive range of motion. Palliative care was consulted to assist clarifications of goals of care in the setting of patient's progressive decline and complications. Patient's showing signs of caregiver stress, needing emotional support and guidance. Palliative care has made several attempts at contacting patient's Patricia Harrell, left message in voicemail. Will continue to follow-up. . Family/friend interactions See interval note. . Advance Directives Living Will: Never completed Health Care Surrogate: Never completed Durable Power of Shot Man: Never completed Advance Directive Specifics Health Care Surrogate(s): No living will or healthcare surrogate designation found in medical records. Patricia Harrell acting as healthcare proxy. Unclear at this time if they are legally . . Documented care wishes: No living well documented. Significant change in goals: Pending goals of care conversation with patient's . . Objective Vital Signs Date Time Temp Pulse Resp B/P Pulse Ox O2 Delivery O2 Flow Rate FiO2 08/22/16 08:00 97.3 86 18 116/75 100 08/22/16 06:07 97.4 75 16 122/80 99 08/22/16 00:00 96.6 85 16 120/86 99 08/21/16 21:13 82 08/21/16 20:00 96.8 84 18 130/84 99 08/21/16 17:02 80 08/21/16 16:00 96.4 80 18 132/91 98 Intake & Output 08/22/16 08/22/16 06:59 18:59 Intake Total 1105 ml Output Total 2200 ml Balance -1095 ml IV Total 105 ml Tube Feeding 600 ml Other 400 ml Output Urine Total 2200 ml Stool Total 0 ml # Bowel Movements 0 Physical Exam CONSTITUTIONAL/GENERAL: This is a thin patient in no acute distress, aphasic, limited communication. Nodding head yes/no to questions. Mouthing some words. TUBES/LINES/DRAINS: PIV's, PEG tube. SKIN: No jaundice. Skin temperature appropriate. Not diaphoretic. HEAD: Atraumatic. Normocephalic. EYES: Pupils equal and round and reactive. ENT: Hearing grossly normal. Nose without bleeding or purulent drainage. Throat without visible erythema or exudates. Moderate amount of oral clear secretions. NECK: Trachea midline. Supple, nontender. CARDIOVASCULAR: Regular rate and rhythm without murmurs, gallops, or rubs. No JVD. Peripheral pulses symmetric. RESPIRATORY/CHEST: Symmetric, unlabored respirations. Clear breath sounds bilaterally. GASTROINTESTINAL: Abdomen soft, non-tender, nondistended. PEG tube in place, same cover with dressing. No guarding. Bowel sounds present. GENITOURINARY: Without palpable bladder distension. MUSCULOSKELETAL: Extremities without clubbing, cyanosis, or edema. Muscle wasting noted. NEUROLOGICAL: Awake and alert. Following some commands. Right-sided hemiparesis. Weak hand grasp on the left. PSYCHIATRIC: Appears calm. . Diagnostic Tests Laboratory Laboratory Tests Test 08/20/16 08/21/16 08/22/16 06:40 07:33 06:54 Creatinine 1.26 MG/DL 1.16 MG/DL 1.34 MG/DL (0.60-1.30) (0.60-1.30) (0.60-1.30) Estimat Glomerular Filtration 75 ML/MIN (>89) 83 ML/MIN (>89) 70 ML/MIN (>89) Rate White Blood Count 8.4 TH/MM3 9.6 TH/MM3 (4.0-11.0) (4.0-11.0) Red Blood Count 3.68 MIL/MM3 3.61 MIL/MM3 (4.50-5.90) (4.50-5.90) Hemoglobin 10.5 GM/DL 10.0 GM/DL (13.0-17.0) (13.0-17.0) Hematocrit 32.4 % 31.6 % (39.0-51.0) (39.0-51.0) Mean Corpuscular Volume 88.0 FL 87.5 FL (80.0-100.0) (80.0-100.0) Mean Corpuscular Hemoglobin 28.5 PG 27.8 PG (27.0-34.0) (27.0-34.0) Mean Corpuscular Hemoglobin 32.4 % 31.8 % Concent (32.0-36.0) (32.0-36.0) Red Cell Distribution Width 15.2 % 14.8 % (11.6-17.2) (11.6-17.2) Platelet Count 466 TH/MM3 499 TH/MM3 (150-450) (150-450) Mean Platelet Volume 8.3 FL 7.7 FL (7.0-11.0) (7.0-11.0) Sodium Level 143 MEQ/L 142 MEQ/L (136-145) (136-145) Potassium Level 3.9 MEQ/L 3.7 MEQ/L (3.5-5.1) (3.5-5.1) Chloride Level 108 MEQ/L 106 MEQ/L (98-107) (98-107) Carbon Dioxide Level 25.5 MEQ/L 27.9 MEQ/L (21.0-32.0) (21.0-32.0) Anion Gap 10 MEQ/L (5-15) 8 MEQ/L (5-15) Blood Urea Nitrogen 5 MG/DL (7-18) 7 MG/DL (7-18) Random Glucose 110 MG/DL 89 MG/DL (74-106) (74-106) Calcium Level 8.4 MG/DL 8.8 MG/DL (8.5-10.1) (8.5-10.1) Vancomycin Level Trough 10.4 MCG/ML (5.0-10.0) Result Diagram: 08/22/16 0654 08/22/16 0654 Imaging Last Impressions Upper Extremity Ultrasound 08/19/16 0000 Signed Impressions: Service Date/Time: Friday, August 19, 2016 22:32 - CONCLUSION: Left cephalic vein occlusive thrombus noted in the antecubital fossa. Baldev Vu MD Lumbar Puncture Fluoroscopy 08/17/16 0000 Signed Impressions: Service Date/Time: Wednesday, August 17, 2016 12:26 - CONCLUSION: Uncomplicated fluoroscopically guided lumbar puncture. Vishal Beckford Jr., MD Brain MRI 08/17/16 0000 Signed Impressions: Service Date/Time: Wednesday, August 17, 2016 13:28 - CONCLUSION: Remote long-standing areas of abnormality in the brainstem and middle cerebellar peduncle consistent with remote infarcts or contusion. No acute intracranial abnormality. Chacho Bright MD Abdomen X-Ray 08/17/16 Signed Impressions: Service Date/Time: Wednesday, August 17, 2016 13:02 - CONCLUSION: No evidence of obstruction. No MRI incompatible foreign body is identified. Chacho Bright MD Head CT 08/16/16 0000 Signed Impressions: Service Date/Time: Tuesday, August 16, 2016 09:55 - CONCLUSION: Chronic ischemic changes left frontal lobe possibly from evidence of previous ventriculostomy placement, unchanged. No acute intracranial abnormality. Gen Potter MD Chest X-Ray 08/15/16 1617 Signed Impressions: Service Date/Time: Monday, August 15, 2016 16:35 - CONCLUSION: No acute disease. No significant change has occurred. No significant change has occurred. Chacho Bright MD Modified Barium Swallow 08/15/16 0000 Signed Impressions: Service Date/Time: Monday, August 15, 2016 00:00 - CONCLUSION: See report above and speech pathology report Chacho Bright MD Procedures * 08/19/16 -PEG tube placement * 08/17/16- lumbar puncture . Assessment and Plan Disease Oriented Problem List: (1) Neurologic type Behcet's syndrome (2) Sepsis (3) Impaired mobility and activities of daily living Symptom Scale: (1) Debility 0-10 Scale: Unable to quantify Comment: Progressive secondary to neuro-Behcet's syndrome, CVA. Now bed bound. (2) Depression 0-10 Scale: Unable to quantify Comment: History of depression, on Celexa at home. Crying outburst. Pertinent Non-Medical Issues Psychosocial: Reported as . Unknown if he has any children. Spiritual: No spiritual affiliations. Legal: No living will or advanced directives found in medical records. Patricia Harrell presented as and has been acting as healthcare proxy. Ethical issues impacting care: No living will or advanced directives found in medical records. Patricia Harrell presented as and has been acting as healthcare proxy. . Important Contacts Patricia Harrell -reported as . [phone]. . Prognosis Mr. 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 Patient presented to the ED on 08/13/16 via EMS were reports of decreased oral intake for the prior 2-3 days and skin tear to left upper extremity. He was admitted for sepsis. Patient is at high risk for further complications, continue decline and . His diagnosis of neuro- Behcet's syndrome was done at [facility], pending medical records for confirmation. Unknown if prognosis was provided. Evidence shows high mortality in neuro-Behcet's syndrome of about 25% in the first year after neurological manifestations. . Plan * CODE STATUS: Unclear at this time. Several attempts to contact . Patient listed as FULL CODE in prior admissions. * HEALTHCARE DECISION-MAKER: No living will or healthcare surrogate designation found in medical records. Patricia Harrell acting as healthcare proxy. Unclear at this time if they are legally . * GOALS OF CARE: Pending family meeting to discuss goals of care. Several attempts to contact patient's . Palliative care will continue to follow- up. * SYMPTOMS: == Depression/crying-tearful outbursts. Much improved since last Monday, patient, pleasant during my visit today. Patient with history of depression and taking Celexa 20 mg daily at home, this was not continued during this admission. Patient was seen by psychiatry in November 2015 secondary to crying outbursts. Pseudobulbar affect considered as possible etiology, a trial of Nuedexta was suggested but not started as symptoms improved. Palliative care recommends psychiatry reconsultation if crying outbursts persist == Debility, likely to continue to worsen. Unclear if patient would benefit from rehabilitation at discharge. PT following. * Palliative care contact information has been provided to patient's via telephone voicemail. Several attempts at contacting family. * Palliative care will continue to follow-up with this patient and family for clarifications of goals of care and support during this difficult time. . Time Spent Total Floor Time (mins): 26 (Total time to include review medical records, physical exam, and several attempts at contacting patient's .) >50% Counseling/Coord of Care: Yes Attestation To help prompt me to consider important information that might be impacting today's encounter and assessment, information from prior notes written by myself or my colleagues may have been "brought forward" into today's note. My signature on this note, however, is an attestation that I personally performed the exam, history, and/or decision-making noted today, and, unless otherwise indicated, the interactions with patient, family, and staff as well as the review of records all occurred today. I also attest that the listed assessment and stated plan reflect my best clinical judgment today based on the combination of historical information, prior notes, and today's exam/ interactions. When time spent is documented, it refers only to time spent today by the signer, or if indicated, combined time spent today by collaborating physician/nurse practitioner. Esther Varma Aug 22, 2016 14:51
[2016-08-22] MEDS: ATORVASTATIN 40 MG TAB PO SCH (22:22)
[2016-08-23] VITALS (8 sets, daily range): BP systolic 93–117; BP diastolic 72–77; PULSE 76–85; RESP 16–20; TEMP 96.3–98; O2SAT 100
[2016-08-23] MEDS: INSULIN ASPART SUPPLEMENTAL SCALE SQ SCH ×4 (05:07→23:04)
[2016-08-23] MEDS: cefTRIAXone INJ 2,000 MG in SODIUM CHLORIDE 0.9% INJ 100 ML IV SCH ×2 (06:24→16:44)
[2016-08-23 07:57] LABS: HEMATOCRIT 31.8 % (39.0-51.0); HEMOGLOBIN 10.3 GM/DL (13.0-17.0); MEAN CELL VOLUME 86.7 FL (80.0-100.0); MEAN CORPUSCULAR HEMOGLOBIN 28.1 PG (27.0-34.0); MEAN CORPUSCULAR HGB CONC 32.4 % (32.0-36.0); MEAN PLATELET VOLUME 7.8 FL (7.0-11.0); PLATELET COUNT 520 TH/MM3 (150-450); RED BLOOD COUNT 3.67 MIL/MM3 (4.50-5.90); RED CELL DISTRIBUTION WIDTH 15.3 % (11.6-17.2); WHITE BLOOD COUNT 9.6 TH/MM3 (4.0-11.0)
--- NOTE | 2016-08-23 07:57 | HHI.PR ---
Review/Management Daily Summary 08/18 discussed with RN, stable overall data seen, lp abnormal csf meningites/encephalitis? infectious dx on board will follow peripherally 08/19 more alert and follows simple commands moves left side on command denies zazueta by nodding severe right hemiparesis but also has weakness on the left meningoencephalitis infectious vs vasculitis neuro Behcet's if not making reasonable progress with antibiotics the consider course pulse steroids (solumedrol 1 gr iv daily x3) prn neuro over the weekend, please call if needed 08/23 remains about the same neuro kraft spoke with rn caring for him over the night continue medical care please call prn neuro Subjective Subjective Comments No acute events reported Active Medications Current Medications Medications (Trade) Dose Ordered Sig/Beau Route Start Time Stop Time Status Last Admin (Pepcid) 20 mg BID PO 08/13/16 21:00 08/22/16 22:21 (D50w (Vial) Inj) 25 ml UNSCH PRN IV PUSH 08/13/16 13:45 (Glucagon Inj) 1 mg UNSCH PRN OTHER 08/13/16 13:45 (NS Flush) 2 ml UNSCH PRN FLUSH 08/13/16 14:00 (NS Flush) 2 ml BID FLUSH 08/13/16 21:00 08/22/16 22:21 (Tylenol) 650 mg Q4H PRN PO 08/13/16 14:00 (Zofran Inj) 4 mg Q6H PRN IVP 08/13/16 14:00 (Narcan Inj) 0.4 mg UNSCH PRN IV 08/13/16 14:00 (Lipitor) 40 mg HS PO 08/13/16 21:00 08/22/16 22:22 Acetaminophen 650 mg 650 mg Q6H PRN RECTAL 08/15/16 16:30 08/17/16 21:49 Pharmacy Profile Note 0 ml @ 0 mls/hr UNSCH OTHER 08/15/16 16:30 Diltiazem HCl 125 mg/Sodium Chloride 125 ml @ 0 mls/hr TITRATE IV 08/16/16 17:30 08/16/16 18:37 (Rocephin Inj/NS Inj) 100 ml @ 200 mls/hr Q12H IV 08/17/16 17:00 08/23/16 06:24 Metoprolol Tartrate 5 mg 5 mg Q6H PRN IV PUSH 08/18/16 15:15 (Vancomycin Inj/ NS 250 ml Inj) 250 ml @ 250 mls/hr Q24H IV 08/23/16 04:00 08/23/16 05:02 Miscellaneous Information SPECIFIC LAB TO BE ... ONCE ONCE XX 08/26/16 03:45 08/26/16 03:46 Allergies Allergies Coded Allergies No Known Allergies (Unverified08/17/16) Review of Systems All other ROS: ROS reviewed as documented in chart Exam I&O / VS 08/22/16 08/22/16 08/23/16 15:00 23:00 07:00 Intake Total 320 ml 600 ml Output Total 300 ml 400 ml Balance 20 ml 600 ml -400 ml Intake Oral 320 ml Tube Feeding 600 ml Output Urine Total 300 ml 400 ml # Voids 2 # Bowel Movements 1 Vital Signs Date Time Temp Pulse Resp B/P Pulse Ox O2 Delivery O2 Flow Rate FiO2 08/23/16 05:23 96.3 79 16 93/75 100 08/23/16 00:49 96.3 76 16 102/77 100 08/22/16 20:43 82 124/78 08/22/16 20:28 98.6 85 18 97/72 98 08/22/16 16:00 98.1 84 18 116/83 100 08/22/16 12:00 96.4 84 18 116/77 98 08/22/16 08:00 97.3 86 18 116/75 100 General: Alert and Oriented, No acute distress Eye: EOMI Respiratory: Lungs CTA, Non-labored respirations Cardiology: Normal rate, Regular Rhythm Musculoskeletal: Swelling Neurologic: Alert, Oriented, CN II-XII intact, Normal DTR's Psychiatric: Cooperative, Appropriate mood & affect, Normal judgement Wolfgang Jessica MD Aug 23, 2016 07:57
[2016-08-23 08:22] LABS: BICARBONATE 27.7 MEQ/L (21.0-32.0); CALCIUM 9.1 MG/DL (8.5-10.1); CREATININE 1.25 MG/DL (0.60-1.30)
[2016-08-23] MEDS: SODIUM CHLORIDE 0.9% FLUSH 5 ML FLUSH FLUSH SCH ×2 (08:42→23:05)
[2016-08-23] MEDS: FAMOTIDINE 20 MG TAB PO SCH ×2 (08:43→23:04)
--- NOTE | 2016-08-23 10:01 | HHI.PR ---
Subjective Remarks The patient was resting in bed comfortably. He was crying. He seemed to deny any pain or discomfort. Discussed with nursing. Objective Vitals Vital Signs Date Time Temp Pulse Resp B/P Pulse Ox O2 Delivery O2 Flow Rate FiO2 08/23/16 08:40 85 08/23/16 08:00 97.0 78 20 99/76 100 08/23/16 05:23 96.3 79 16 93/75 100 08/23/16 00:49 96.3 76 16 102/77 100 08/22/16 20:43 82 124/78 08/22/16 20:28 98.6 85 18 97/72 98 08/22/16 16:00 98.1 84 18 116/83 100 08/22/16 12:00 96.4 84 18 116/77 98 I/O 08/22/16 08/22/16 08/22/16 08/23/16 08/23/16 08/23/16 07:00 15:00 23:00 07:00 15:00 23:00 Intake Total 1105 ml 320 ml 600 ml Output Total 700 ml 300 ml 400 ml Balance 405 ml 20 ml 600 ml -400 ml Intake Oral 320 ml IV Total 105 ml Tube Feeding 600 ml 600 ml Other 400 ml Output Urine Total 700 ml 300 ml 400 ml Stool Total 0 ml # Voids 2 # Bowel Movements 1 Result Diagram: 08/23/1672008/23/16720 Imaging Last Impressions Upper Extremity Ultrasound 08/19/16 0000 Signed Impressions: Service Date/Time: Friday, August 19, 2016 22:32 - CONCLUSION: Left cephalic vein occlusive thrombus noted in the antecubital fossa. Baldev Vu MD Lumbar Puncture Fluoroscopy 08/17/16 0000 Signed Impressions: Service Date/Time: Wednesday, August 17, 2016 12:26 - CONCLUSION: Uncomplicated fluoroscopically guided lumbar puncture. Vishal Beckford Jr., MD Brain MRI 08/17/16 0000 Signed Impressions: Service Date/Time: Wednesday, August 17, 2016 13:28 - CONCLUSION: Remote long-standing areas of abnormality in the brainstem and middle cerebellar peduncle consistent with remote infarcts or contusion. No acute intracranial abnormality. Chacho Bright MD Abdomen X-Ray 08/17/16 0000 Signed Impressions: Service Date/Time: Wednesday, August 17, 2016 13:02 - CONCLUSION: No evidence of obstruction. No MRI incompatible foreign body is identified. Chacho Bright MD Head CT 08/16/16 0000 Signed Impressions: Service Date/Time: Tuesday, August 16, 2016 09:55 - CONCLUSION: Chronic ischemic changes left frontal lobe possibly from evidence of previous ventriculostomy placement, unchanged. No acute intracranial abnormality. Gen Potter MD Chest X-Ray 08/15/16 1617 Signed Impressions: Service Date/Time: Monday, August 15, 2016 16:35 - CONCLUSION: No acute disease. No significant change has occurred. No significant change has occurred. Chacho Bright MD Modified Barium Swallow 08/15/16 0000 Signed Impressions: Service Date/Time: Monday, August 15, 2016 00:00 - CONCLUSION: See report above and speech pathology report Chacho Bright MD Objective Remarks GENERAL: Chronically ill-appearing male in no apparent distress. Can nod yes or no to questions. SKIN: Left upper back and medial antecubital area with skin tears. Wounds appear clean. Dried wound on the left wrist. CARDIOVASCULAR: Normal rate and regular rhythm without murmurs, gallops, or rubs. RESPIRATORY: Breath sounds equal and clear to auscultation bilaterally. GASTROINTESTINAL: Abdomen soft, non-distended. Normal active bowel sounds MUSCULOSKELETAL: Extremities without some evidence of contractures. NEURO: Patient is aphasic, can nod yes or no to questions. Follow commands. Generalized weakness. Right hemiparesis from previous stroke. PSYCH: Having crying outbursts. Medications and IVs Current Medications Medications (Trade) Dose Ordered Sig/Beau Route Start Time Stop Time Status Last Admin (Pepcid) 20 mg BID PO 08/13/16 21:00 08/23/16 08:43 (D50w (Vial) Inj) 25 ml UNSCH PRN IV PUSH 08/13/16 13:45 (Glucagon Inj) 1 mg UNSCH PRN OTHER 08/13/16 13:45 (NS Flush) 2 ml UNSCH PRN FLUSH 08/13/16 14:00 (NS Flush) 2 ml BID FLUSH 08/13/16 21:00 08/23/16 08:42 (Tylenol) 650 mg Q4H PRN PO 08/13/16 14:00 (Zofran Inj) 4 mg Q6H PRN IVP 08/13/16 14:00 (Narcan Inj) 0.4 mg UNSCH PRN IV 08/13/16 14:00 (Lipitor) 40 mg HS PO 08/13/16 21:00 08/22/16 22:22 Acetaminophen 650 mg 650 mg Q6H PRN RECTAL 08/15/16 16:30 08/17/16 21:49 Pharmacy Profile Note 0 ml @ 0 mls/hr UNSCH OTHER 08/15/16 16:30 Diltiazem HCl 125 mg/Sodium Chloride 125 ml @ 0 mls/hr TITRATE IV 08/16/16 17:30 08/16/16 18:37 (Rocephin Inj/NS Inj) 100 ml @ 200 mls/hr Q12H IV 08/17/16 17:00 08/23/16 06:24 Metoprolol Tartrate 5 mg 5 mg Q6H PRN IV PUSH 08/18/16 15:15 (Vancomycin Inj/ NS 250 ml Inj) 250 ml @ 250 mls/hr Q24H IV 08/23/16 04:00 08/23/16 05:02 Miscellaneous Information SPECIFIC LAB TO BE ... ONCE ONCE XX 08/26/16 03:45 08/26/16 03:46 A/P Problem List: (1) UTI (urinary tract infection) ICD Code: N39.0 Status: Resolved (2) Sepsis ICD Code: A41.9 Status: Acute (3) Altered mental status ICD Code: R41.82 Status: Resolved (4) 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 (5) Impaired mobility and activities of daily living ICD Code: Z74.09 Status: Acute Assessment and Plan 46-year-old male with history of neuro-Behcet's diagnosed at [facility], left frontal CVA, bedbound, nonverbal, mural thrombus, history of brain abscess, meningitis, hypertension, diabetes, presents for decreased oral intake 23 days prior to admission, and skin tear at the left upper extremity and upper back. According to the patient's , he has been having a declining course. Patient appear to be stabilizing for this hospitalization but I doubt he will be able to go back home. Certainly at risk for continuing decline. Appreciate palliative care following. Sepsis Appears to be improving after Rocephin started. Initially thought to be due to UTI but urine culture neg. On arrival patient was tachycardic with heart rate 131, rectal temperature 99.8. Labs remarkable for WBC 14.9 K, elevated BUN 28, lactic acid 1.7. CXR images reviewed, unremarkable. One out of 4 blood cultures with staph epidermidis. ?Contaminant. Repeat blood cultures unremarkable. Brain CT and MRI unremarkable. Status post LP. CSF culture negative. - Sepsis improving on antibiotics. Discussed with Dr. Reyes. Skin lesions could have been the source. - ceftriaxone and vanco per ID. Neuro-Behcet No new changes in imaging. Patient followed by neurology. Aphasic at baseline. - If neuro status worsening, advised starting steroid. Follow up with neuro. - Consult OT, PT. Will likely need placement. Mood disorder Patient having crying outbursts. He has done that in the past. Could be related to depression. - psychiatry consult pending. Decreased oral intake and dysphagia Speech therapy following. S/P barium swallow. Patient with severe dysphagia. GI placed PEG. - Continue tube feeding. - Increase free water to 250 cc every 6 hours. Left upper back and medial antecubital skin tear Etiology unclear. Family reports that it started as a blister. - Continue dressing changes per RN. - antibiotics as above. Diabetes Glucose well controlled. - monitor Accu-Cheks and cover with low-dose SSI. DVT Prophylaxis: teds/SCDs. Discharge Planning Awaiting clinical improvement. Problem Qualifiers (1) UTI (urinary tract infection): Qualified Code: N39.0 - Urinary tract infection without hematuria, site unspecified Mikie Johnson DO Aug 23, 2016 10:01
--- NOTE | 2016-08-23 15:00 | PD.CONS ---
Provisional Diagnosis Admission Date Aug 13, 2016 at 13:44 [place] I. Adjustment disorder with depressed mood vs MDD [place] II. Deferred [place] III. 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 Patient presented to the ED on 08/13/16 via EMS were reports of decreased oral intake for the prior 2-3 days and skin tear to left upper extremity. He was admitted for sepsis. His diagnosis of neuro-Behcet's syndrome was done at [facility]. Patient consulted to psychiatry due to suspicion of depression. On psychiatric evaluation today patient was found calm,does not seem to be in acute distress, very poorly cooperative, unable to engage in a conversation due to neurological and communication deficits. Patient can communicate by nodding his head, but unknown if information given is reliable. Patient seems to be disorganized, he answers yes and no to the same questions repeated number of times, he cries multiple time during the evaluation, but when asked about depressive symptoms he denies, he denies suicidal and homicidal ideation as well, he denies visual and auditory hallucinations too. . Review of Systems ROS Limitations: Uncooperative Past Family Social History Coded Allergies: No Known Allergies (Unverified , 08/17/16) Unable to Obtain Active Prescriptions or Reported Meds Current Medications Medications (Trade) Dose Ordered Sig/Beau Route Start Time Stop Time Status Last Admin (Pepcid) 20 mg BID PO 08/13/16 21:00 08/23/16 08:43 (D50w (Vial) Inj) 25 ml UNSCH PRN IV PUSH 08/13/16 13:45 (Glucagon Inj) 1 mg UNSCH PRN OTHER 08/13/16 13:45 (NS Flush) 2 ml UNSCH PRN FLUSH 08/13/16 14:00 (NS Flush) 2 ml BID FLUSH 08/13/16 21:00 08/23/16 08:42 (Tylenol) 650 mg Q4H PRN PO 08/13/16 14:00 (Zofran Inj) 4 mg Q6H PRN IVP 08/13/16 14:00 (Narcan Inj) 0.4 mg UNSCH PRN IV 08/13/16 14:00 (Lipitor) 40 mg HS PO 08/13/16 21:00 08/22/16 22:22 Acetaminophen 650 mg 650 mg Q6H PRN RECTAL 08/15/16 16:30 08/17/16 21:49 Pharmacy Profile Note 0 ml @ 0 mls/hr UNSCH OTHER 08/15/16 16:30 Diltiazem HCl 125 mg/Sodium Chloride 125 ml @ 0 mls/hr TITRATE IV 08/16/16 17:30 08/16/16 18:37 (Rocephin Inj/NS Inj) 100 ml @ 200 mls/hr Q12H IV 08/17/16 17:00 08/23/16 06:24 (Lopressor Inj) 5 mg Q6H PRN IV PUSH 08/18/16 15:15 Miscellaneous Information SPECIFIC LAB TO BE BEATRICE... ONCE ONCE XX 08/26/16 03:45 08/26/16 03:46 (Vancomycin Inj/ NS 250 ml Inj) 262.5 ml @ 250 mls/hr Q24H IV 08/24/16 04:00 Physical Exam Vital Signs Vital Signs Date Time Temp Pulse Resp B/P Pulse Ox O2 Delivery O2 Flow Rate FiO2 08/23/16 12:00 97.3 78 20 106/76 100 I/O 08/22/16 08/22/16 08/23/16 08:00 16:00 00:00 Intake Total 1105 ml 320 ml 600 ml Output Total 700 ml 300 ml Balance 405 ml 20 ml 600 ml Mental Status Examination Very limited due to the lack of cooperation, and neurological deficits Appearance man, [facility], good hygiene, age appearing, calm, no acute distress, poorly cooperative Speech: Other (patient doesn't communicate verbally) Assessment & Plan Problem List: (1) Depression Assessment & Plan: Patient is poorly cooperative, no verbally communicative, he can say yes and no by nodding, he seems to be calm, not in acute distress, but throughout the evaluation he cries often even though he denies depression, denies suicidal ideation, denies homicidal ideation, denies perceptual disturbances. Impossible to know how reliable is the patient in the limited information that he provides. Crying spells could be secondary to pain, neurological deficits, delirium due to underlying conditions, but also could be secondary to depression. It is worth it to try an SSRI. We'll start Prozac 10 mg daily. We'll continue follow-up. ICD Code: F32.9 Assessment & Plan Estimated LOS: days Problem Qualifiers (1) Depression: Mukul Yuossef MD Aug 23, 2016 15:00
[2016-08-23] MEDS: ATORVASTATIN 40 MG TAB PO SCH (23:04)
[2016-08-24] VITALS (7 sets, daily range): BP systolic 103–127; BP diastolic 70–84; PULSE 76–88; RESP 16–18; TEMP 96.8–98.1; O2SAT 94–100
[2016-08-24] MEDS: cefTRIAXone INJ 2,000 MG in SODIUM CHLORIDE 0.9% INJ 100 ML IV SCH ×2 (04:25→16:21)
--- NOTE | 2016-08-24 08:53 | HHI.PR ---
Subjective Remarks The patient was getting blood drawn from phlebotomy. He was crying but did not indicate that he had any pain or discomfort. He didn't have any questions. Objective Vitals Vital Signs Date Time Temp Pulse Resp B/P Pulse Ox O2 Delivery O2 Flow Rate FiO2 08/24/16 05:33 97.6 77 18 117/80 97 08/24/16 01:10 97.5 76 16 103/76 94 08/23/16 22:00 83 08/23/16 20:40 98.0 85 16 117/74 100 08/23/16 15:42 97.1 82 20 106/72 100 08/23/16 12:00 97.3 78 20 106/76 100 I/O 08/23/16 08/23/16 08/23/16 08/24/16 08/24/16 08/24/16 07:00 15:00 23:00 07:00 15:00 23:00 Intake Total 674 ml Output Total 400 ml 1200 ml 600 ml Balance -400 ml 674 ml -1200 ml -600 ml IV Total 0 ml Tube Feeding 674 ml Output Urine Total 400 ml 1200 ml 600 ml # Bowel Movements 1 1 Result Diagram: 08/23/1672008/23/16720 Imaging Last Impressions Upper Extremity Ultrasound 08/19/16 0000 Signed Impressions: Service Date/Time: Friday, August 19, 2016 22:32 - CONCLUSION: Left cephalic vein occlusive thrombus noted in the antecubital fossa. Baldev Vu MD Lumbar Puncture Fluoroscopy 08/17/16 0000 Signed Impressions: Service Date/Time: Wednesday, August 17, 2016 12:26 - CONCLUSION: Uncomplicated fluoroscopically guided lumbar puncture. Vishal Beckford Jr., MD Brain MRI 08/17/16 0000 Signed Impressions: Service Date/Time: Wednesday, August 17, 2016 13:28 - CONCLUSION: Remote long-standing areas of abnormality in the brainstem and middle cerebellar peduncle consistent with remote infarcts or contusion. No acute intracranial abnormality. Chacho Bright MD Abdomen X-Ray 08/17/16 0000 Signed Impressions: Service Date/Time: Wednesday, August 17, 2016 13:02 - CONCLUSION: No evidence of obstruction. No MRI incompatible foreign body is identified. Chacho Bright MD Head CT 08/16/16 0000 Signed Impressions: Service Date/Time: Tuesday, August 16, 2016 09:55 - CONCLUSION: Chronic ischemic changes left frontal lobe possibly from evidence of previous ventriculostomy placement, unchanged. No acute intracranial abnormality. Gen Potter MD Chest X-Ray 08/15/16 1617 Signed Impressions: Service Date/Time: Monday, August 15, 2016 16:35 - CONCLUSION: No acute disease. No significant change has occurred. No significant change has occurred. Chacho Bright MD Modified Barium Swallow 08/15/16 0000 Signed Impressions: Service Date/Time: Monday, August 15, 2016 00:00 - CONCLUSION: See report above and speech pathology report Chacho Bright MD Objective Remarks GENERAL: Chronically ill-appearing male in no apparent distress. Can nod yes or no to questions. SKIN: Left upper back and medial antecubital area with skin tears. Wounds appear clean. Dried wound on the left wrist. CARDIOVASCULAR: Normal rate and regular rhythm without murmurs, gallops, or rubs. RESPIRATORY: Breath sounds equal and clear to auscultation bilaterally. GASTROINTESTINAL: Abdomen soft, non-distended. Normal active bowel sounds MUSCULOSKELETAL: Extremities without some evidence of contractures. NEURO: Patient is aphasic, can nod yes or no to questions. Follow commands. Generalized weakness. Right hemiparesis from previous stroke. PSYCH: Having crying outbursts. Medications and IVs Current Medications Medications (Trade) Dose Ordered Sig/Beau Route Start Time Stop Time Status Last Admin (Pepcid) 20 mg BID PO 08/13/16 21:00 08/23/16 23:04 (D50w (Vial) Inj) 25 ml UNSCH PRN IV PUSH 08/13/16 13:45 (Glucagon Inj) 1 mg UNSCH PRN OTHER 08/13/16 13:45 (NS Flush) 2 ml UNSCH PRN FLUSH 08/13/16 14:00 (NS Flush) 2 ml BID FLUSH 08/13/16 21:00 08/23/16 23:05 (Tylenol) 650 mg Q4H PRN PO 08/13/16 14:00 (Zofran Inj) 4 mg Q6H PRN IVP 08/13/16 14:00 (Narcan Inj) 0.4 mg UNSCH PRN IV 08/13/16 14:00 (Lipitor) 40 mg HS PO 08/13/16 21:00 08/23/16 23:04 Acetaminophen 650 mg 650 mg Q6H PRN RECTAL 08/15/16 16:30 08/17/16 21:49 Pharmacy Profile Note 0 ml @ 0 mls/hr UNSCH OTHER 08/15/16 16:30 (Rocephin Inj/NS Inj) 100 ml @ 200 mls/hr Q12H IV 08/17/16 17:00 08/24/16 04:25 Miscellaneous Information SPECIFIC LAB TO BE ... ONCE ONCE XX 08/26/16 03:45 08/26/16 03:46 (Vancomycin Inj/ NS 250 ml Inj) 262.5 ml @ 250 mls/hr Q24H IV 08/24/16 04:00 08/24/16 04:24 (PROzac) 10 mg DAILY PO 08/24/16 09:00 A/P Problem List: (1) UTI (urinary tract infection) ICD Code: N39.0 Status: Resolved (2) Sepsis ICD Code: A41.9 Status: Acute (3) Altered mental status ICD Code: R41.82 Status: Resolved (4) 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 (5) Impaired mobility and activities of daily living ICD Code: Z74.09 Status: Acute Assessment and Plan 46-year-old male with history of neuro-Behcet's diagnosed at [place], left frontal CVA, bedbound, nonverbal, mural thrombus, history of brain abscess, meningitis, hypertension, diabetes, presents for decreased oral intake 23 days prior to admission, and skin tear at the left upper extremity and upper back. According to the patient's , he has been having a declining course. Sepsis Appears to be improving after Rocephin started. Initially thought to be due to UTI but urine culture neg. On arrival patient was tachycardic with heart rate 131, rectal temperature 99.8. Labs remarkable for WBC 14.9 K, elevated BUN 28, lactic acid 1.7. CXR images reviewed, unremarkable. One out of 4 blood cultures with staph epidermidis. ?Contaminant. Repeat blood cultures unremarkable. Brain CT and MRI unremarkable. Status post LP. CSF culture negative. - Sepsis improving on antibiotics. Discussed with Dr. Reyes. Skin lesions could have been the source. - ceftriaxone and vanco per ID. Neuro-Behcet No new changes on imaging. Patient followed by neurology. Aphasic at baseline. - If neuro status worsening, advised starting steroid. Follow up with neuro. - Consult OT, PT. Will likely need placement. Case management assistance appreciated. Mood disorder Patient having crying outbursts. He has done that in the past. Could be related to depression. Psychiatry consult appreciated. - fluoxetine started per psych. Decreased oral intake and dysphagia Speech therapy following. S/P barium swallow. Patient with severe dysphagia. GI placed PEG. - Continue tube feeding. - free water 250 cc every 6 hours. Left upper back and medial antecubital skin tear Etiology unclear. Family reports that it started as a blister. - Continue dressing changes per RN. - antibiotics as above. Diabetes Glucose well controlled. - monitor Accu-Cheks BID and cover with low-dose SSI. Cephalic vein thrombus Noted on LUE US. - hold off on full anticoagulation as superficial vein. DVT Prophylaxis: Lovenox, teds/SCDs. Discharge Planning Awaiting clinical improvement. Problem Qualifiers (1) UTI (urinary tract infection): Qualified Code: N39.0 - Urinary tract infection without hematuria, site unspecified Mikie Johnson DO Aug 24, 2016 08:53
[2016-08-24] MEDS: SODIUM CHLORIDE 0.9% FLUSH 5 ML FLUSH FLUSH SCH ×2 (09:00→21:13)
[2016-08-24 09:47] LABS: CREATININE 1.33 MG/DL (0.60-1.30)
[2016-08-24] MEDS: FLUoxetine HCL 10 MG CAP PO SCH (09:59)
[2016-08-24] MEDS: ENOXAPARIN SODIUM 30 MG/0.3 ML SYRINGE SQ SCH (09:59)
[2016-08-24] MEDS: FAMOTIDINE 20 MG TAB PO SCH ×2 (09:59→21:13)
[2016-08-24] MEDS: INSULIN ASPART SUPPLEMENTAL SCALE SQ SCH ×3 (11:00→21:13)
--- NOTE | 2016-08-24 16:00 | HHI.IDPN ---
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 Patient has reportedly been evaluated at [facility] and is on chronic steroids. Patient also underwent rehab but does not appear to have changed in fact from review of notes appears worsening. With this background patient was admitted. All the information obtained from the EMR and ER physicians know as the patient is nonverbal and unable to provide any history. Apparently, the patient lives at home with his sister who is his door builder. She reported the patient has had decreased oral intake over the past few days. Also complains of a skin tear at the left antecubital space, unknown how the injury occurred. Upon arrival to the ER, patient was tachycardic with heart rate 131, rectal temperature 99.8. Labs remarkable for WBC 14.9 K, elevated BUN 28, lactic acid 1.7. Urinalysis shows possible UTI with bacteria. Blood cultures collected. He was started on IV Vanco and Zosyn. Overnight events reviewed No fever No rash No diarrhea. Antibiotics Ceftriaxone IV Vanco IV Lines Line sites with no e.o infection Past Medical History reviewed Allergies: Coded Allergies: No Known Allergies (Unverified , 08/17/16) Objective . Vital Signs Date Time Temp Pulse Resp B/P Pulse Ox O2 Delivery O2 Flow Rate FiO2 08/24/16 12:00 96.8 82 16 115/78 100 08/24/16 08:00 97.2 85 16 108/70 98 08/24/16 05:33 97.6 77 18 117/80 97 08/24/16 01:10 97.5 76 16 103/76 94 08/23/16 22:00 83 08/23/16 20:40 98.0 85 16 117/74 100 08/23/16 08/23/16 08/24/16 15:00 23:00 07:00 Intake Total 674 ml Output Total 1200 ml 600 ml Balance 674 ml -1200 ml -600 ml IV Total 0 ml Tube Feeding 674 ml Output Urine Total 1200 ml 600 ml # Bowel Movements 1 . Laboratory Tests Test 08/23/16 07:21 White Blood Count 9.6 TH/MM3 Red Blood Count 3.67 MIL/MM3 Hemoglobin 10.3 GM/DL Hematocrit 31.8 % Mean Corpuscular Volume 86.7 FL Mean Corpuscular Hemoglobin 28.1 PG Mean Corpuscular Hemoglobin 32.4 % Concent Red Cell Distribution Width 15.3 % Platelet Count 520 TH/MM3 Mean Platelet Volume 7.8 FL Laboratory Tests Test 08/23/16 08/24/16 07:21 08:39 Sodium Level 143 MEQ/L Potassium Level 3.8 MEQ/L Chloride Level 106 MEQ/L Carbon Dioxide Level 27.7 MEQ/L Anion Gap 9 MEQ/L Blood Urea Nitrogen 11 MG/DL Creatinine 1.25 MG/DL 1.33 MG/DL Estimat Glomerular Filtration 76 ML/MIN 71 ML/MIN Rate Random Glucose 99 MG/DL Calcium Level 9.1 MG/DL Imaging Last Impressions Lumbar Puncture Fluoroscopy 08/17/16 0000 Signed Impressions: Service Date/Time: Wednesday, August 17, 2016 12:26 - CONCLUSION: Uncomplicated fluoroscopically guided lumbar puncture. Vishal Beckford Jr., MD Brain MRI 08/17/16 0000 Signed Impressions: Service Date/Time: Wednesday, August 17, 2016 13:28 - CONCLUSION: Remote long-standing areas of abnormality in the brainstem and middle cerebellar peduncle consistent with remote infarcts or contusion. No acute intracranial abnormality. Chacho Bright MD Abdomen X-Ray 08/17/16 0000 Signed Impressions: Service Date/Time: Wednesday, August 17, 2016 13:02 - CONCLUSION: No evidence of obstruction. No MRI incompatible foreign body is identified. Chacho Bright MD Head CT 08/16/16 0000 Signed Impressions: Service Date/Time: Tuesday, August 16, 2016 09:55 - CONCLUSION: Chronic ischemic changes left frontal lobe possibly from evidence of previous ventriculostomy placement, unchanged. No acute intracranial abnormality. Gen Potter MD Chest X-Ray 08/15/16 1617 Signed Impressions: Service Date/Time: Monday, August 15, 2016 16:35 - CONCLUSION: No acute disease. No significant change has occurred. No significant change has occurred. Chacho Bright MD Modified Barium Swallow 08/15/16 0000 Signed Impressions: Service Date/Time: Monday, August 15, 2016 00:00 - CONCLUSION: See report above and speech pathology report Chacho Bright MD Physical Exam GENERAL: Poorly nourished, poorly-developed patient, in no apparent distress. SKIN: No rashes. Ecchymosis and LUE skin breaks noted. HEAD: Atraumatic. Normocephalic. No temporal or scalp tenderness. EYES: Pupils equal round and reactive. Extraocular motions intact. No scleral icterus. No injection or drainage. ENT: Nose without bleeding, purulent drainage or septal hematoma. Throat without erythema, tonsillar hypertrophy or exudate. Uvula midline. Airway patent. NECK: Trachea midline. Supple, nontender, no meningeal signs. CARDIOVASCULAR: HS audible. No murmur. RESPIRATORY: Clear to auscultation. Breath sounds equal bilaterally. GASTROINTESTINAL: Abdomen soft, non-tender, nondistended. MUSCULOSKELETAL: Extremities without clubbing, cyanosis, or edema. NEUROLOGICAL: Awake and alert. Aphasic. LE weakness but able to flex both limbs minimally. Psych: tearful and at times frustrated due to inability to express himself. IV line sites with no e.o infection. Assessment & Plan Remarks Staph epi bacteremia: ? contaminant. ? cellulitis bilateral LE. 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 H/o Meningitis and Brain abscess. Aphasic Recs DC Ceftriaxone IV DC Vanco IV Observe off antibiotics. yu Foss: if any change in clinical condition please reconsult ID. Will sign off. Berna Reyes MD Aug 24, 2016 16:00
[2016-08-24] MEDS: ATORVASTATIN 40 MG TAB PO SCH (21:13)
[2016-08-25] VITALS (8 sets, daily range): BP systolic 114–138; BP diastolic 75–90; PULSE 80–101; RESP 14–18; TEMP 97.2–99; O2SAT 94–98
[2016-08-25] MEDS: SODIUM CHLORIDE 0.9% FLUSH 5 ML FLUSH FLUSH SCH ×2 (09:16→22:10)
[2016-08-25] MEDS: FLUoxetine HCL 10 MG CAP PO SCH (09:16)
[2016-08-25] MEDS: ENOXAPARIN SODIUM 30 MG/0.3 ML SYRINGE SQ SCH (09:16)
[2016-08-25] MEDS: FAMOTIDINE 20 MG TAB PO SCH ×2 (09:16→22:05)
[2016-08-25] MEDS: INSULIN ASPART SUPPLEMENTAL SCALE SQ SCH ×3 (11:00→22:09)
[2016-08-25] MEDS: cefTRIAXone INJ 2,000 MG in SODIUM CHLORIDE 0.9% INJ 100 ML IV SCH (16:15)
--- NOTE | 2016-08-25 16:57 | HHI.PR ---
Subjective Remarks The patient was resting comfortably. He had no acute complaints. Nursing was at the bedside. Objective Vitals Vital Signs Date Time Temp Pulse Resp B/P Pulse Ox O2 Delivery O2 Flow Rate FiO2 08/25/16 13:10 97.2 96 18 125/83 96 08/25/16 08:52 97.5 80 18 124/82 94 08/25/16 08:00 92 08/25/16 04:07 98.7 89 18 116/90 96 08/25/16 01:01 97.8 88 18 138/86 98 08/24/16 21:00 88 08/24/16 20:00 96.9 85 18 116/80 98 I/O 08/24/16 08/24/16 08/24/16 08/25/16 08/25/16 08/25/16 07:00 15:00 23:00 07:00 15:00 23:00 Intake Total 360 ml 1802 ml 2273 ml Output Total 600 ml 600 ml 200 ml 300 ml Balance -600 ml -240 ml 1602 ml -300 ml 2273 ml Intake Oral 360 ml IV Total 2 ml Tube Feeding 1802 ml 1771 ml Other 500 ml Output Urine Total 600 ml 600 ml 200 ml 300 ml # Voids 2 # Bowel Movements 1 1 1 Result Diagram: 08/23/16 0721 08/24/16 0839 Imaging Last Impressions Upper Extremity Ultrasound 08/19/16 0000 Signed Impressions: Service Date/Time: Friday, August 19, 2016 22:32 - CONCLUSION: Left cephalic vein occlusive thrombus noted in the antecubital fossa. Baldev Vu MD Lumbar Puncture Fluoroscopy 08/17/16 0000 Signed Impressions: Service Date/Time: Wednesday, August 17, 2016 12:26 - CONCLUSION: Uncomplicated fluoroscopically guided lumbar puncture. Vishal Beckford Jr., MD Brain MRI 08/17/16 0000 Signed Impressions: Service Date/Time: Wednesday, August 17, 2016 13:28 - CONCLUSION: Remote long-standing areas of abnormality in the brainstem and middle cerebellar peduncle consistent with remote infarcts or contusion. No acute intracranial abnormality. Chacho Bright MD Abdomen X-Ray 08/17/16 0000 Signed Impressions: Service Date/Time: Wednesday, August 17, 2016 13:02 - CONCLUSION: No evidence of obstruction. No MRI incompatible foreign body is identified. Chacho Bright MD Head CT 08/16/16 0000 Signed Impressions: Service Date/Time: Tuesday, August 16, 2016 09:55 - CONCLUSION: Chronic ischemic changes left frontal lobe possibly from evidence of previous ventriculostomy placement, unchanged. No acute intracranial abnormality. Gen Potter MD Chest X-Ray 08/15/16 1617 Signed Impressions: Service Date/Time: Monday, August 15, 2016 16:35 - CONCLUSION: No acute disease. No significant change has occurred. No significant change has occurred. Chacho Bright MD Modified Barium Swallow 08/15/16 0000 Signed Impressions: Service Date/Time: Monday, August 15, 2016 00:00 - CONCLUSION: See report above and speech pathology report Chacho Bright MD Objective Remarks GENERAL: Chronically ill-appearing male in no apparent distress. Can nod yes or no to questions. SKIN: Left upper back and medial antecubital area with skin tears. Wounds appear clean. Dried wound on the left wrist. CARDIOVASCULAR: Normal rate and regular rhythm without murmurs, gallops, or rubs. RESPIRATORY: Breath sounds equal and clear to auscultation bilaterally. GASTROINTESTINAL: Abdomen soft, non-distended. Normal active bowel sounds MUSCULOSKELETAL: Extremities without some evidence of contractures. NEURO: Patient is aphasic, can nod yes or no to questions. Follow commands. Generalized weakness. Right hemiparesis from previous stroke. PSYCH: Flattened affect. Medications and IVs Current Medications Medications (Trade) Dose Ordered Sig/Beau Route Start Time Stop Time Status Last Admin (Pepcid) 20 mg BID PO 08/13/16 21:00 08/25/16 09:16 (D50w (Vial) Inj) 25 ml UNSCH PRN IV PUSH 08/13/16 13:45 (Glucagon Inj) 1 mg UNSCH PRN OTHER 08/13/16 13:45 (NS Flush) 2 ml UNSCH PRN FLUSH 08/13/16 14:00 (NS Flush) 2 ml BID FLUSH 08/13/16 21:00 08/25/16 09:16 (Tylenol) 650 mg Q4H PRN PO 08/13/16 14:00 (Zofran Inj) 4 mg Q6H PRN IVP 08/13/16 14:00 (Narcan Inj) 0.4 mg UNSCH PRN IV 08/13/16 14:00 (Lipitor) 40 mg HS PO 08/13/16 21:00 08/24/16 21:13 Acetaminophen 650 mg 650 mg Q6H PRN RECTAL 08/15/16 16:30 08/17/16 21:49 (Rocephin Inj/NS Inj) 100 ml @ 200 mls/hr Q12H IV 08/17/16 17:00 08/25/16 16:15 (PROzac) 10 mg DAILY PO 08/24/16 09:00 08/25/16 09:16 (Lovenox Inj) 30 mg Q24H SQ 08/24/16 09:00 08/25/16 09:16 A/P Problem List: (1) UTI (urinary tract infection) ICD Code: N39.0 Status: Resolved (2) Sepsis ICD Code: A41.9 Status: Acute (3) Altered mental status ICD Code: R41.82 Status: Resolved (4) 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 (5) Impaired mobility and activities of daily living ICD Code: Z74.09 Status: Acute Assessment and Plan 46-year-old male with history of neuro-Behcet's diagnosed at [place], left frontal CVA, bedbound, nonverbal, mural thrombus, history of brain abscess, meningitis, hypertension, diabetes, presents for decreased oral intake 23 days prior to admission, and skin tear at the left upper extremity and upper back. According to the patient's , he has been having a declining course. Sepsis Appears to be improving after Rocephin started. Initially thought to be due to UTI but urine culture neg. On arrival patient was tachycardic with heart rate 131, rectal temperature 99.8. Labs remarkable for WBC 14.9 K, elevated BUN 28, lactic acid 1.7. CXR images reviewed, unremarkable. One out of 4 blood cultures with staph epidermidis. ?Contaminant. Repeat blood cultures unremarkable. Brain CT and MRI unremarkable. Status post LP. CSF culture negative. - Sepsis improving on antibiotics. Discussed with Dr. Reyes. Skin lesions could have been the source. - ceftriaxone and vanco discontinued per ID. Monitor off of antibiotics. Neuro-Behcet No new changes on imaging. Patient followed by neurology. Aphasic at baseline. - If neuro status worsening, advised starting steroid. Follow up with neuro. - Consult OT, PT. Will possibly need placement. Case management assistance appreciated. Mood disorder Patient having crying outbursts. He has done that in the past. Could be related to depression. Psychiatry consult appreciated. - fluoxetine started per psych. Decreased oral intake and dysphagia Speech therapy following. S/P barium swallow. Patient with severe dysphagia. GI placed PEG. - Continue tube feeding. Tolerating 3/2. - free water 250 cc every 6 hours. Left upper back and medial antecubital skin tear Etiology unclear. Family reports that it started as a blister. - Continue dressing changes per RN. Dressings changed 3/2. - antibiotics as above. Diabetes Glucose well controlled. - monitor Accu-Cheks BID and cover with low-dose SSI. Cephalic vein thrombus Noted on LUE US. - hold off on full anticoagulation as superficial vein. DVT Prophylaxis: Lovenox, teds/SCDs. Discharge Planning Possible d/c home with [facility] in AM. Problem Qualifiers (1) UTI (urinary tract infection): Qualified Code: N39.0 - Urinary tract infection without hematuria, site unspecified Mikie Johnson DO Aug 25, 2016 16:57
[2016-08-25] MEDS: ATORVASTATIN 40 MG TAB PO SCH (22:05)
[2016-08-26] VITALS: BP 123/77; PULSE 96; RESP 20; TEMP 97.7; O2SAT 100
[2016-08-26 04:00] VITALS: BP 115/79; PULSE 110; RESP 22; TEMP 98.4; O2SAT 94
[2016-08-26 08:00] VITALS: BP 117/79; PULSE 106; RESP 16; TEMP 99.9; O2SAT 97
[2016-08-26 08:32] LABS: HEMATOCRIT 35.2 % (39.0-51.0); HEMOGLOBIN 11.3 GM/DL (13.0-17.0); MEAN CELL VOLUME 87.4 FL (80.0-100.0); MEAN CORPUSCULAR HEMOGLOBIN 28.1 PG (27.0-34.0); MEAN CORPUSCULAR HGB CONC 32.1 % (32.0-36.0); MEAN PLATELET VOLUME 8.1 FL (7.0-11.0); PLATELET COUNT 543 TH/MM3 (150-450); RED BLOOD COUNT 4.02 MIL/MM3 (4.50-5.90); RED CELL DISTRIBUTION WIDTH 15.8 % (11.6-17.2); WHITE BLOOD COUNT 12.9 TH/MM3 (4.0-11.0)
[2016-08-26 09:07] LABS: BICARBONATE 28.7 MEQ/L (21.0-32.0); CALCIUM 9.5 MG/DL (8.5-10.1); CREATININE 1.36 MG/DL (0.60-1.30); MAGNESIUM 2.2 MG/DL (1.5-2.5)
[2016-08-26] MEDS: FLUoxetine HCL 10 MG CAP PO SCH (09:40)
[2016-08-26] MEDS: FAMOTIDINE 20 MG TAB PO SCH ×2 (09:40→21:40)
[2016-08-26] MEDS: SODIUM CHLORIDE 0.9% FLUSH 5 ML FLUSH FLUSH SCH ×2 (09:41→21:00)
[2016-08-26] MEDS: ENOXAPARIN SODIUM 30 MG/0.3 ML SYRINGE SQ SCH (09:41)
[2016-08-26] MEDS: INSULIN ASPART SUPPLEMENTAL SCALE SQ SCH ×3 (10:39→21:00)
--- NOTE | 2016-08-26 11:18 | HHI.PR ---
Subjective Remarks The patient was resting comfortably. His is at the bedside. The patient appeared to have no acute complaints. He denied any pain. Discussed with nursing and case management. Objective Vitals Vital Signs Date Time Temp Pulse Resp B/P Pulse Ox O2 Delivery O2 Flow Rate FiO2 08/26/16 08:00 99.9 106 16 117/79 97 08/26/16 04:00 98.4 110 22 115/79 94 08/26/16 00:00 97.7 96 20 123/77 100 08/25/16 22:00 93 08/25/16 20:00 98.7 89 14 114/87 95 08/25/16 16:00 99.0 101 18 115/75 96 08/25/16 13:10 97.2 96 18 125/83 96 I/O 08/25/16 08/25/16 08/25/16 08/26/16 08/26/16 08/26/16 07:00 15:00 23:00 07:00 15:00 23:00 Intake Total 1975 ml Output Total 300 ml 750 ml 600 ml Balance -300 ml 1225 ml -600 ml Intake Oral 120 ml IV Total 2 ml Tube Feeding 1353 ml Other 500 ml Output Urine Total 300 ml 750 ml 600 ml # Voids 2 Result Diagram: 08/26/16 0745 08/26/16 0745 Imaging Last Impressions Upper Extremity Ultrasound 08/19/16 0000 Signed Impressions: Service Date/Time: Friday, August 19, 2016 22:32 - CONCLUSION: Left cephalic vein occlusive thrombus noted in the antecubital fossa. Baldev Vu MD Lumbar Puncture Fluoroscopy 08/17/16 0000 Signed Impressions: Service Date/Time: Wednesday, August 17, 2016 12:26 - CONCLUSION: Uncomplicated fluoroscopically guided lumbar puncture. Vishal Beckford Jr., MD Brain MRI 08/17/16 0000 Signed Impressions: Service Date/Time: Wednesday, August 17, 2016 13:28 - CONCLUSION: Remote long-standing areas of abnormality in the brainstem and middle cerebellar peduncle consistent with remote infarcts or contusion. No acute intracranial abnormality. Chacho Bright MD Abdomen X-Ray 08/17/16 0000 Signed Impressions: Service Date/Time: Wednesday, August 17, 2016 13:02 - CONCLUSION: No evidence of obstruction. No MRI incompatible foreign body is identified. Chacho Bright MD Head CT 08/16/16 0000 Signed Impressions: Service Date/Time: Tuesday, August 16, 2016 09:55 - CONCLUSION: Chronic ischemic changes left frontal lobe possibly from evidence of previous ventriculostomy placement, unchanged. No acute intracranial abnormality. Gen Potter MD Chest X-Ray 08/15/16 1617 Signed Impressions: Service Date/Time: Monday, August 15, 2016 16:35 - CONCLUSION: No acute disease. No significant change has occurred. No significant change has occurred. Chacho Bright MD Modified Barium Swallow 08/15/16 0000 Signed Impressions: Service Date/Time: Monday, August 15, 2016 00:00 - CONCLUSION: See report above and speech pathology report Chacho Bright MD Objective Remarks GENERAL: Chronically ill-appearing male in no apparent distress. Can nod yes or no to questions. SKIN: Left upper back and medial antecubital area with skin tears. Wounds appear clean. Dried wound on the left wrist. CARDIOVASCULAR: Normal rate and regular rhythm without murmurs, gallops, or rubs. RESPIRATORY: Breath sounds equal and clear to auscultation bilaterally. GASTROINTESTINAL: Abdomen soft, non-distended. Normal active bowel sounds MUSCULOSKELETAL: Extremities without some evidence of contractures. NEURO: Patient is aphasic, can nod yes or no to questions. Follow commands. Generalized weakness. Right hemiparesis from previous stroke. PSYCH: Flattened affect. Medications and IVs Current Medications Medications (Trade) Dose Ordered Sig/Beau Route Start Time Stop Time Status Last Admin (Pepcid) 20 mg BID PO 08/13/16 21:00 08/26/16 09:40 (D50w (Vial) Inj) 25 ml UNSCH PRN IV PUSH 08/13/16 13:45 (Glucagon Inj) 1 mg UNSCH PRN OTHER 08/13/16 13:45 (NS Flush) 2 ml UNSCH PRN FLUSH 08/13/16 14:00 (NS Flush) 2 ml BID FLUSH 08/13/16 21:00 08/26/16 09:41 (Tylenol) 650 mg Q4H PRN PO 08/13/16 14:00 (Zofran Inj) 4 mg Q6H PRN IVP 08/13/16 14:00 (Narcan Inj) 0.4 mg UNSCH PRN IV 08/13/16 14:00 (Lipitor) 40 mg HS PO 08/13/16 21:00 08/25/16 22:05 Acetaminophen 650 mg 650 mg Q6H PRN RECTAL 08/15/16 16:30 08/17/16 21:49 (Rocephin Inj/NS Inj) 100 ml @ 200 mls/hr Q12H IV 08/17/16 17:00 08/25/16 16:15 (PROzac) 10 mg DAILY PO 08/24/16 09:00 08/26/16 09:40 (Lovenox Inj) 30 mg Q24H SQ 08/24/16 09:00 08/26/16 09:41 A/P Problem List: (1) UTI (urinary tract infection) ICD Code: N39.0 Status: Resolved (2) Sepsis ICD Code: A41.9 Status: Acute (3) Altered mental status ICD Code: R41.82 Status: Resolved (4) 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 According to the patient's , he has been having a declining course. Sepsis Appears to be improving after Rocephin started. Initially thought to be due to UTI but urine culture neg. On arrival patient was tachycardic with heart rate 131, rectal temperature 99.8. Labs remarkable for WBC 14.9 K, elevated BUN 28, lactic acid 1.7. CXR images reviewed, unremarkable. One out of 4 blood cultures with staph epidermidis. ?Contaminant. Repeat blood cultures unremarkable. Brain CT and MRI unremarkable. Status post LP. CSF culture negative. Pt with low grade fever and elevated HR 08/26. - Sepsis improving on antibiotics. Discussed with Dr. Reyes. Skin lesions could have been the source. - ceftriaxone and vanco discontinued per ID. Monitor off of antibiotics. - check CXR and UA. - IVFs x 2 L. Neuro-Behcet No new changes on imaging. Patient followed by neurology. Aphasic at baseline. - If neuro status worsening, advised starting steroid. Follow up with neuro. - Consult OT, PT. Will possibly need placement. Case management assistance appreciated. Mood disorder Patient having crying outbursts. He has done that in the past. Could be related to depression. Psychiatry consult appreciated. - fluoxetine started per psych. Decreased oral intake and dysphagia Speech therapy following. S/P barium swallow. Patient with severe dysphagia. GI placed PEG. - Continue diet per speech along with tube feeding. Tolerating 3/2. - free water 250 cc every 6 hours. Left upper back and medial antecubital skin tear Etiology unclear. Family reports that it started as a blister. - Continue dressing changes per RN. Dressings changed 3/2. - antibiotics as above. Diabetes Glucose well controlled. - monitor Accu-Cheks BID and cover with low-dose SSI. Cephalic vein thrombus Noted on LUE US. - hold off on full anticoagulation as superficial vein. Renal insufficiency Likely prerenal. - IVFs and follow BMP. DVT Prophylaxis: Lovenox, teds/SCDs. Discharge Planning D/c to SNF vs. home with HHC in 1-2 days if stable. Problem Qualifiers (1) UTI (urinary tract infection): Qualified Code: N39.0 - Urinary tract infection without hematuria, site unspecified Mikie Johnson DO Aug 26, 2016 11:18
--- NOTE | 2016-08-26 11:30 | RADRPT ---
EXAM DATE/TIME: 08/26/2016 11:19 [facility] COMPARISON: CHEST SINGLE AP, August 15, 2016, 16:35. INDICATIONS : Pneumonia. MEDICAL HISTORY : Hypercholesterolemia. Hypertension diabetes SURGICAL HISTORY : None. ENCOUNTER: Initial ACUITY: 2 weeks PAIN SCORE: Non-responsive. LOCATION: Bilateral chest FINDINGS: A single view of the chest demonstrates the lungs to be symmetrically aerated without evidence of mas s, infiltrate or effusion. The cardiomediastinal contours are unremarkable. Osseous structures are intact. CONCLUSION: No acute disease. Conrad Stewart MD FACR on August 26, 2016 at 11:28 Board Certified Radiologist. This report was verified electronically.
[2016-08-26] MEDS: SODIUM CHLOR 0.9% 1000 ML INJ 1,000 ML IV SCH ×2 (11:52→23:48)
[2016-08-26 12:00] VITALS: BP 121/75; PULSE 107; RESP 18; TEMP 98.9; O2SAT 96
[2016-08-26 14:42] LABS: BACTERIA, URINE FEW /hpf; BILIRUBIN, URINE NEG (NEG); BLOOD, URINE NEG (NEG); GLUCOSE,URINE NEG (NEG); KETONE, URINE NEG (NEG); NITRITE,URINE NEG (NEG); PH, URINE 6.5 (5.0-8.5); SQUAMOUS EPITHELIAL CELL URINE 1 /hpf (0-5); URINE COLOR YELLOW (YELLW/STRAW); URINE LEUKOCYTE ESTERASE SMALL (NEG)
[2016-08-26] MEDS: cefTRIAXone INJ 2,000 MG in SODIUM CHLORIDE 0.9% INJ 100 ML IV SCH (15:52)
[2016-08-26 16:00] VITALS: BP 127/91; PULSE 112; RESP 22; TEMP 98.6; O2SAT 97
[2016-08-26 20:00] VITALS: BP 108/82; PULSE 94; RESP 18; TEMP 98.1; O2SAT 95
[2016-08-26] MEDS: ATORVASTATIN 40 MG TAB PO SCH (21:40)
[2016-08-27] VITALS: BP 128/86; PULSE 86; RESP 18; TEMP 97.7; O2SAT 95
[2016-08-27 04:00] VITALS: BP 122/88; PULSE 80; RESP 20; TEMP 97.7; O2SAT 97
[2016-08-27] MEDS: cefTRIAXone INJ 2,000 MG in SODIUM CHLORIDE 0.9% INJ 100 ML IV SCH (06:16)
[2016-08-27] MEDS: INSULIN ASPART SUPPLEMENTAL SCALE SQ SCH ×4 (06:17→21:00)
[2016-08-27 08:21] VITALS: BP 137/90; PULSE 90; RESP 20; TEMP 98; O2SAT 97
[2016-08-27] MEDS: FLUoxetine HCL 10 MG CAP PO SCH (09:59)
[2016-08-27] MEDS: ENOXAPARIN SODIUM 30 MG/0.3 ML SYRINGE SQ SCH (09:59)
[2016-08-27] MEDS: SODIUM CHLORIDE 0.9% FLUSH 5 ML FLUSH FLUSH SCH ×2 (09:59→21:59)
[2016-08-27] MEDS: FAMOTIDINE 20 MG TAB PO SCH ×2 (09:59→21:58)
[2016-08-27 12:47] LABS: AUTOMATED NEUTROPHIL # 6.7 TH/MM3 (1.8-7.7); BASOPHIL % 0.4 % (0.0-2.0); EOSINOPHIL # 0.1 TH/MM3 (0-0.4); EOSINOPHIL % 0.9 % (0.0-4.0); HEMATOCRIT 33.4 % (39.0-51.0); LYMPHOCYTE # 1.5 TH/MM3 (1.0-4.8); MEAN CORPUSCULAR HEMOGLOBIN 28.7 PG (27.0-34.0); MEAN PLATELET VOLUME 8.2 FL (7.0-11.0); MONO % 4.7 % (0.0-8.0); MONOCYTE # 0.4 TH/MM3 (0-0.9); PLATELET COUNT 495 TH/MM3 (150-450); RED BLOOD COUNT 3.84 MIL/MM3 (4.50-5.90); RED CELL DISTRIBUTION WIDTH 15.9 % (11.6-17.2); WHITE BLOOD COUNT 8.7 TH/MM3 (4.0-11.0)
--- NOTE | 2016-08-27 13:18 | HHI.PR ---
Subjective Remarks The patient was getting changed. His mood appeared stable. Nursing wanted to know if his fluids can be discontinued. They had no further concerns. Objective Vitals Vital Signs Date Time Temp Pulse Resp B/P Pulse Ox O2 Delivery O2 Flow Rate FiO2 08/27/16 08:21 98.0 90 20 137/90 97 08/27/16 04:00 97.7 80 20 122/88 97 08/27/16 00:00 97.7 86 18 128/86 95 08/26/16 20:00 98.1 94 18 108/82 95 08/26/16 16:00 98.6 112 22 127/91 97 I/O 08/26/16 08/26/16 08/26/16 08/27/16 08/27/16 08/27/16 07:00 15:00 23:00 07:00 15:00 23:00 Intake Total 60 ml 1673 ml 2344 ml Output Total 600 ml 800 ml 600 ml Balance -600 ml -740 ml 1673 ml 1744 ml Intake Oral 60 ml IV Total 533 ml 887 ml Tube Feeding 1140 ml 957 ml Other 500 ml Output Urine Total 600 ml 800 ml 600 ml Result Diagram: 08/27/16 1225 08/26/16 0745 Imaging Last Impressions Chest X-Ray 08/26/16 0000 Signed Impressions: Service Date/Time: Friday, August 26, 2016 11:19 - CONCLUSION: No acute disease. Conrad Stewart MD FACR Upper Extremity Ultrasound 08/19/16 0000 Signed Impressions: Service Date/Time: Friday, August 19, 2016 22:32 - CONCLUSION: Left cephalic vein occlusive thrombus noted in the antecubital fossa. Baldev Vu MD Lumbar Puncture Fluoroscopy 08/17/16 0000 Signed Impressions: Service Date/Time: Wednesday, August 17, 2016 12:26 - CONCLUSION: Uncomplicated fluoroscopically guided lumbar puncture. Vishal Beckford Jr., MD Brain MRI 08/17/16 0000 Signed Impressions: Service Date/Time: Wednesday, August 17, 2016 13:28 - CONCLUSION: Remote long-standing areas of abnormality in the brainstem and middle cerebellar peduncle consistent with remote infarcts or contusion. No acute intracranial abnormality. Chacho Bright MD Abdomen X-Ray 08/17/16 0000 Signed Impressions: Service Date/Time: Wednesday, August 17, 2016 13:02 - CONCLUSION: No evidence of obstruction. No MRI incompatible foreign body is identified. Chacho Bright MD Head CT 08/16/16 0000 Signed Impressions: Service Date/Time: Tuesday, August 16, 2016 09:55 - CONCLUSION: Chronic ischemic changes left frontal lobe possibly from evidence of previous ventriculostomy placement, unchanged. No acute intracranial abnormality. Gen Potter MD Modified Barium Swallow 08/15/16 0000 Signed Impressions: Service Date/Time: Monday, August 15, 2016 00:00 - CONCLUSION: See report above and speech pathology report Chacho Bright MD Objective Remarks GENERAL: Chronically ill-appearing male in no apparent distress. Can nod yes or no to questions. SKIN: Left upper back and medial antecubital area with skin tears. Wounds appear clean. Dried wound on the left wrist. CARDIOVASCULAR: Normal rate and regular rhythm without murmurs, gallops, or rubs. RESPIRATORY: Poor respiratory effort. Breath sounds equal and clear to auscultation bilaterally. GASTROINTESTINAL: Abdomen soft, non-distended. Normal active bowel sounds MUSCULOSKELETAL: Extremities without some evidence of contractures. NEURO: Patient is aphasic, can nod yes or no to questions. Follow commands. Generalized weakness. Right hemiparesis from previous stroke. PSYCH: Flattened affect. Medications and IVs Current Medications Medications (Trade) Dose Ordered Sig/Beau Route Start Time Stop Time Status Last Admin (Pepcid) 20 mg BID PO 08/13/16 21:00 08/27/16 09:59 (D50w (Vial) Inj) 25 ml UNSCH PRN IV PUSH 08/13/16 13:45 (Glucagon Inj) 1 mg UNSCH PRN OTHER 08/13/16 13:45 (NS Flush) 2 ml UNSCH PRN FLUSH 08/13/16 14:00 (NS Flush) 2 ml BID FLUSH 08/13/16 21:00 08/27/16 09:59 (Tylenol) 650 mg Q4H PRN PO 08/13/16 14:00 (Zofran Inj) 4 mg Q6H PRN IVP 08/13/16 14:00 (Narcan Inj) 0.4 mg UNSCH PRN IV 08/13/16 14:00 (Lipitor) 40 mg HS PO 08/13/16 21:00 08/26/16 21:40 (Tylenol Supp) 650 mg Q6H PRN RECTAL 08/15/16 16:30 08/17/16 21:49 (PROzac) 10 mg DAILY PO 08/24/16 09:00 08/27/16 09:59 Enoxaparin Sodium 30 mg 30 mg Q24H SQ 08/24/16 09:00 08/27/16 09:59 (NS 1000 ml Inj) 1,000 ml @ 75 mls/hr [id number] IV 08/26/16 12:00 08/27/16 14:39 08/26/16 23:48 A/P Problem List: (1) UTI (urinary tract infection) ICD Code: N39.0 Status: Resolved (2) Sepsis ICD Code: A41.9 Status: Acute (3) Altered mental status ICD Code: R41.82 Status: Resolved (4) 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 According to the patient's , he has been having a declining course. Sepsis Appears to be improving after Rocephin started. Initially thought to be due to UTI but urine culture neg. On arrival patient was tachycardic with heart rate 131, rectal temperature 99.8. Labs remarkable for WBC 14.9 K, elevated BUN 28, lactic acid 1.7. CXR images reviewed, unremarkable. One out of 4 blood cultures with staph epidermidis. ?Contaminant. Repeat blood cultures unremarkable. Brain CT and MRI unremarkable. Status post LP. CSF culture negative. Pt with low grade fever and elevated HR 08/26. Resolved. - Sepsis improving on antibiotics. Discussed with Dr. Reyes. Skin lesions could have been the source. - ceftriaxone and vanco discontinued per ID. Monitor off of antibiotics. - IVFs x 2 L. - urine culture pending. UA weakly positive. Neuro-Behcet No new changes on imaging. Patient followed by neurology. Aphasic at baseline. - If neuro status worsening, advised starting steroid. Follow up with neuro. - Consult OT, PT. Will possibly need placement. Case management assistance appreciated. Mood disorder Patient having crying outbursts. He has done that in the past. Could be related to depression. Psychiatry consult appreciated. - fluoxetine started per psych. Mood has been stable. Decreased oral intake and dysphagia Speech therapy following. S/P barium swallow. Patient with severe dysphagia. GI placed PEG. - Continue diet per speech along with tube feeding. Tolerating 3/. - free water 250 cc every 6 hours. Left upper back and medial antecubital skin tear Etiology unclear. Family reports that it started as a blister. S/p antibiotics. - Continue dressing changes per RN. Dressings changed 08/25. Diabetes Glucose well controlled 08/27. - monitor Accu-Cheks BID and cover with low-dose SSI. Cephalic vein thrombus Noted on LUE US. - hold off on full anticoagulation as superficial vein. Renal insufficiency Likely prerenal. - IVFs and follow BMP. DVT Prophylaxis: Lovenox, teds/SCDs. Discharge Planning D/c to SNF when bed available. Case management assistance appreciated. Problem Qualifiers (1) UTI (urinary tract infection): Qualified Code: N39.0 - Urinary tract infection without hematuria, site unspecified Mikie Johnson DO Aug 27, 2016 13:17
[2016-08-27 16:24] VITALS: BP 139/90; PULSE 97; RESP 20; TEMP 97.8
[2016-08-27 20:00] VITALS: BP 145/94; PULSE 98; RESP 20; TEMP 98.2; O2SAT 94
[2016-08-27] MEDS: ATORVASTATIN 40 MG TAB PO SCH (21:58)
[2016-08-28] VITALS: BP 132/83; PULSE 82; RESP 16; TEMP 97.8; O2SAT 94
[2016-08-28 04:00] VITALS: BP 118/84; PULSE 116; RESP 20; TEMP 97.5; O2SAT 94
[2016-08-28] MEDS: INSULIN ASPART SUPPLEMENTAL SCALE SQ SCH ×4 (06:01→21:00)
[2016-08-28 07:53] VITALS: BP 119/87; PULSE 126; RESP 20; TEMP 98.6; O2SAT 96
[2016-08-28] MEDS: FAMOTIDINE 20 MG TAB PO SCH ×2 (07:53→21:19)
[2016-08-28] MEDS: FLUoxetine HCL 10 MG CAP PO SCH (07:53)
[2016-08-28] MEDS: ENOXAPARIN SODIUM 30 MG/0.3 ML SYRINGE SQ SCH (08:15)
[2016-08-28] MEDS: SODIUM CHLORIDE 0.9% FLUSH 5 ML FLUSH FLUSH SCH ×2 (09:17→21:20)
[2016-08-28 10:29] LABS: BICARBONATE 28.8 MEQ/L (21.0-32.0); CALCIUM 9.6 MG/DL (8.5-10.1); CREATININE 1.41 MG/DL (0.60-1.30)
--- NOTE | 2016-08-28 11:38 | HHI.PR ---
Subjective Remarks The patient was complaining about secretions. He denied any pain. He denied any chest pain or shortness of breath. Nursing was at the bedside and mentioned the patient's heart rate has been elevated. No other acute concerns. Objective Vitals Vital Signs Date Time Temp Pulse Resp B/P Pulse Ox O2 Delivery O2 Flow Rate FiO2 08/28/16 07:53 98.6 126 20 119/87 96 08/28/16 04:00 97.5 116 20 118/84 94 08/28/16 00:00 97.8 82 16 132/83 94 08/27/16 20:00 98.2 98 20 145/94 94 08/27/16 16:24 97.8 97 20 139/90 I/O 08/27/16 08/27/16 08/27/16 08/28/16 08/28/16 08/28/16 07:00 15:00 23:00 07:00 15:00 23:00 Intake Total 2344 ml 1366 ml Output Total 600 ml 950 ml Balance 1744 ml 1366 ml -950 ml Intake Oral 360 ml IV Total 887 ml Tube Feeding 957 ml 706 ml Other 500 ml 300 ml Output Urine Total 600 ml 950 ml # Bowel Movements 1 1 Result Diagram: 08/27/16 1225 08/28/16 0949 Imaging Last Impressions Chest X-Ray 08/26/16 0000 Signed Impressions: Service Date/Time: Friday, August 26, 2016 11:19 - CONCLUSION: No acute disease. Conrad Stewart MD FACR Upper Extremity Ultrasound 08/19/16 0000 Signed Impressions: Service Date/Time: Friday, August 19, 2016 22:32 - CONCLUSION: Left cephalic vein occlusive thrombus noted in the antecubital fossa. Baldev Vu MD Lumbar Puncture Fluoroscopy 08/17/16 0000 Signed Impressions: Service Date/Time: Wednesday, August 17, 2016 12:26 - CONCLUSION: Uncomplicated fluoroscopically guided lumbar puncture. Vishal Beckford Jr., MD Brain MRI 08/17/16 0000 Signed Impressions: Service Date/Time: Wednesday, August 17, 2016 13:28 - CONCLUSION: Remote long-standing areas of abnormality in the brainstem and middle cerebellar peduncle consistent with remote infarcts or contusion. No acute intracranial abnormality. Chacho Bright MD Abdomen X-Ray 08/17/16 0000 Signed Impressions: Service Date/Time: Wednesday, August 17, 2016 13:02 - CONCLUSION: No evidence of obstruction. No MRI incompatible foreign body is identified. Chacho Bright MD Head CT 08/16/16 0000 Signed Impressions: Service Date/Time: Tuesday, August 16, 2016 09:55 - CONCLUSION: Chronic ischemic changes left frontal lobe possibly from evidence of previous ventriculostomy placement, unchanged. No acute intracranial abnormality. Gen Potter MD Modified Barium Swallow 08/15/16 0000 Signed Impressions: Service Date/Time: Monday, August 15, 2016 00:00 - CONCLUSION: See report above and speech pathology report Chacho Bright MD Objective Remarks GENERAL: Chronically ill-appearing male in no apparent distress. Can nod yes or no to questions. SKIN: Left upper back and medial antecubital area with skin tears. Wounds appear clean. Dried wound on the left wrist. CARDIOVASCULAR: Normal rate and regular rhythm without murmurs, gallops, or rubs. RESPIRATORY: Poor respiratory effort. Breath sounds equal and clear to auscultation bilaterally. GASTROINTESTINAL: Abdomen soft, non-distended. Normal active bowel sounds MUSCULOSKELETAL: Extremities without some evidence of contractures. NEURO: Patient is aphasic, can nod yes or no to questions. Follow commands. Generalized weakness. Right hemiparesis from previous stroke. PSYCH: Flattened affect. Medications and IVs Current Medications Medications (Trade) Dose Ordered Sig/Beau Route Start Time Stop Time Status Last Admin (Pepcid) 20 mg BID PO 08/13/16 21:00 08/28/16 07:53 (D50w (Vial) Inj) 25 ml UNSCH PRN IV PUSH 08/13/16 13:45 (Glucagon Inj) 1 mg UNSCH PRN OTHER 08/13/16 13:45 (NS Flush) 2 ml UNSCH PRN FLUSH 08/13/16 14:00 (NS Flush) 2 ml BID FLUSH 08/13/16 21:00 08/28/16 09:17 (Tylenol) 650 mg Q4H PRN PO 08/13/16 14:00 (Zofran Inj) 4 mg Q6H PRN IVP 08/13/16 14:00 (Narcan Inj) 0.4 mg UNSCH PRN IV 08/13/16 14:00 (Lipitor) 40 mg HS PO 08/13/16 21:00 Hold 08/27/16 21:58 (Tylenol Supp) 650 mg Q6H PRN RECTAL 08/15/16 16:30 08/17/16 21:49 (PROzac) 10 mg DAILY PO 08/24/16 09:00 08/28/16 07:53 (Lovenox Inj) 30 mg Q24H SQ 08/24/16 09:00 08/28/16 08:15 A/P Problem List: (1) UTI (urinary tract infection) ICD Code: N39.0 Status: Resolved (2) Sepsis ICD Code: A41.9 Status: Acute (3) Altered mental status ICD Code: R41.82 Status: Resolved (4) 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 According to the patient's , he has been having a declining course. Sepsis Appears to be improving after Rocephin started. Initially thought to be due to UTI but urine culture neg. On arrival patient was tachycardic with heart rate 131, rectal temperature 99.8. Labs remarkable for WBC 14.9 K, elevated BUN 28, lactic acid 1.7. CXR images reviewed, unremarkable. One out of 4 blood cultures with staph epidermidis. ?Contaminant. Repeat blood cultures unremarkable. Brain CT and MRI unremarkable. Status post LP. CSF culture negative. Pt with low grade fever and elevated HR 3/3. Resolved. - Sepsis improving on antibiotics. Discussed with Dr. Reyes. Skin lesions could have been the source. - ceftriaxone and vanco discontinued per ID. Monitor off of antibiotics. - IVFs x 2 L. - urine culture growing yeast. Start IV fluconazole. Hold statin. Neuro-Behcet No new changes on imaging. Patient followed by neurology. Aphasic at baseline. - If neuro status worsening, advised starting steroid. Follow up with neuro. - Consult OT, PT. Will possibly need placement. Case management assistance appreciated. Mood disorder Patient having crying outbursts. He has done that in the past. Could be related to depression. Psychiatry consult appreciated. - fluoxetine started per psych. Mood has been stable. Decreased oral intake and dysphagia Speech therapy following. S/P barium swallow. Patient with severe dysphagia. GI placed PEG. - Continue diet per speech along with tube feeding. Tolerating 08/28. - free water 250 cc every 6 hours. Left upper back and medial antecubital skin tear Etiology unclear. Family reports that it started as a blister. S/p antibiotics. - Continue dressing changes per RN. Dressings changed 08/25. Diabetes Glucose well controlled 08/28. - monitor Accu-Cheks BID and cover with low-dose SSI. Cephalic vein thrombus Noted on LUE US. - hold off on full anticoagulation as superficial vein. Renal insufficiency Likely prerenal. - IVFs and follow BMP. - check urine sodium and creatinine. - Renal US requested. Tachycardia HR in the 120s and 130s. - check an EKG. - NS bolus. - fluconazole. DVT Prophylaxis: Lovenox, teds/SCDs. Discharge Planning D/c to SNF when bed available. Case management assistance appreciated. Problem Qualifiers (1) UTI (urinary tract infection): Qualified Code: N39.0 - Urinary tract infection without hematuria, site unspecified Mikie Johnson DO Aug 28, 2016 11:38
[2016-08-28 12:28] VITALS: BP 124/82; PULSE 135; RESP 20; TEMP 99; O2SAT 96
[2016-08-28] MEDS: FLUCONAZOLE 100 MG PREMIX BAG 50 ML IV SCH (13:37)
[2016-08-28 15:57] VITALS: BP_SYST 90; PULSE 133; RESP 20; TEMP 98.6; O2SAT 96
[2016-08-28 20:00] VITALS: BP 108/90; PULSE 120; RESP 19; TEMP 98.3; O2SAT 99
--- NOTE | 2016-08-28 21:32 | RADRPT ---
EXAM DATE/TIME: 08/28/2016 20:03 [facility] COMPARISON: No previous studies available for comparison. INDICATIONS : Increased Bun and Creatinine. MEDICAL HISTORY : Cerebrovascular accident. Hypercholesterolemia. Hypertension. Diabetes. Migraines. Anticoagulant ther apy, Xarelto. Incontinence. Depression. SURGICAL HISTORY : Abdominal surgery. Peg tube placement. ENCOUNTER: Initial ACUITY: 1 day PAIN SCORE: 0/10 LOCATION: Bilateral flank MEASUREMENTS: RIGHT KIDNEY: 12.2 x 6.3 x 5.3 cm LEFT KIDNEY: 10.1 x 5.9 x 5.4 cm FINDINGS: There is mild increased echotexture of the bilateral renal cortices which can be seen with medical re nal disease. The bladder is unremarkable. There is no hydronephrosis or mass. CONCLUSION: Mild increased echotexture of both kidneys. Baldev Vu MD on August 28, 2016 at 21:30 Board Certified Radiologist. This report was verified electronically.
[2016-08-29] VITALS: BP 108/78; PULSE 122; RESP 18; TEMP 98.7; O2SAT 96
[2016-08-29 04:00] VITALS: BP 128/83; PULSE 117; RESP 19; TEMP 98.4; O2SAT 95
[2016-08-29] MEDS: INSULIN ASPART SUPPLEMENTAL SCALE SQ SCH ×4 (07:00→21:00)
[2016-08-29 07:45] VITALS: BP 117/78; PULSE 112; RESP 19; TEMP 97.6; O2SAT 97
[2016-08-29] MEDS: FLUoxetine HCL 10 MG CAP PO SCH (09:22)
[2016-08-29] MEDS: FAMOTIDINE 20 MG TAB PO SCH ×2 (09:22→21:39)
[2016-08-29] MEDS: ENOXAPARIN SODIUM 30 MG/0.3 ML SYRINGE SQ SCH (09:22)
[2016-08-29] MEDS: SODIUM CHLORIDE 0.9% FLUSH 5 ML FLUSH FLUSH SCH ×2 (09:22→21:39)
--- NOTE | 2016-08-29 10:07 | EKG ---
Date Performed: 08/28/2016 Time Performed: 12:21:42 PTAGE: 46 years EKG: SINUS TACHYCARDIA ABNORMAL RHYTHM ECG Compared to prior tracing no significant change PREVIOUS TRACING : 08/13/2016 09.19 DOCTOR: Constantine Mendoza Interpretating Date/Time 08/29/2016 10:03:36
[2016-08-29 11:20] VITALS: BP 107/80; PULSE 108; RESP 19; TEMP 98.4; O2SAT 98
[2016-08-29] MEDS: FLUCONAZOLE 100 MG PREMIX BAG 50 ML IV SCH (14:56)
[2016-08-29 15:30] VITALS: BP 99/77; PULSE 101; RESP 19; TEMP 97.9; O2SAT 96
--- NOTE | 2016-08-29 18:15 | HHI.PR ---
Subjective Remarks The patient was resting in bed comfortably. He denied any pain. He said he wasn't hungry yet but will try to eat later. No acute complaints. Objective Vitals Vital Signs Date Time Temp Pulse Resp B/P Pulse Ox O2 Delivery O2 Flow Rate FiO2 08/29/16 15:30 97.9 101 19 99/77 96 08/29/16 11:20 98.4 108 19 107/80 98 08/29/16 07:45 97.6 112 19 117/78 97 08/29/16 04:00 98.4 117 19 128/83 95 08/29/16 00:00 98.7 122 18 108/78 96 08/28/16 20:00 98.3 120 19 108/90 99 I/O 08/28/16 08/28/16 08/28/16 08/29/16 08/29/16 08/29/16 07:00 15:00 23:00 07:00 15:00 23:00 Intake Total 1800 ml Output Total 950 ml 975 ml Balance -950 ml 825 ml IV Total 750 ml Tube Feeding 750 ml Other 300 ml Output Urine Total 950 ml 975 ml # Voids 1 5 2 # Bowel Movements 1 1 0 Result Diagram: 08/27/16 1225 08/28/16 0949 Imaging Last Impressions Renal Ultrasound 08/28/16 0000 Signed Impressions: Service Date/Time: Sunday, August 28, 2016 20:03 - CONCLUSION: Mild increased echotexture of both kidneys. Baldev Vu MD Chest X-Ray 08/26/16 0000 Signed Impressions: Service Date/Time: Friday, August 26, 2016 11:19 - CONCLUSION: No acute disease. Conrad Stewart MD FACR Upper Extremity Ultrasound 08/19/16 0000 Signed Impressions: Service Date/Time: Friday, August 19, 2016 22:32 - CONCLUSION: Left cephalic vein occlusive thrombus noted in the antecubital fossa. Baldev Vu MD Lumbar Puncture Fluoroscopy 08/17/16 0000 Signed Impressions: Service Date/Time: Wednesday, August 17, 2016 12:26 - CONCLUSION: Uncomplicated fluoroscopically guided lumbar puncture. Vishal Beckford Jr., MD Brain MRI 08/17/16 0000 Signed Impressions: Service Date/Time: Wednesday, August 17, 2016 13:28 - CONCLUSION: Remote long-standing areas of abnormality in the brainstem and middle cerebellar peduncle consistent with remote infarcts or contusion. No acute intracranial abnormality. Chacho Bright MD Abdomen X-Ray 08/17/16 0000 Signed Impressions: Service Date/Time: Wednesday, August 17, 2016 13:02 - CONCLUSION: No evidence of obstruction. No MRI incompatible foreign body is identified. Chacho Bright MD Head CT 08/16/16 0000 Signed Impressions: Service Date/Time: Tuesday, August 16, 2016 09:55 - CONCLUSION: Chronic ischemic changes left frontal lobe possibly from evidence of previous ventriculostomy placement, unchanged. No acute intracranial abnormality. Gen Potter MD Modified Barium Swallow 08/15/16 0000 Signed Impressions: Service Date/Time: Monday, August 15, 2016 00:00 - CONCLUSION: See report above and speech pathology report Chacho Bright MD Objective Remarks GENERAL: Chronically ill-appearing male in no apparent distress. Can nod yes or no to questions. SKIN: Left upper back and medial antecubital area with skin tears. Wounds appear clean. Dried wound on the left wrist. CARDIOVASCULAR: Normal rate and regular rhythm without murmurs, gallops, or rubs. RESPIRATORY: Poor respiratory effort. Breath sounds equal and clear to auscultation bilaterally. GASTROINTESTINAL: Abdomen soft, non-distended. Normal active bowel sounds MUSCULOSKELETAL: Extremities without some evidence of contractures. NEURO: Patient is aphasic, can nod yes or no to questions. Follow commands. Generalized weakness. Right hemiparesis from previous stroke. PSYCH: Flattened affect. Medications and IVs Current Medications Medications (Trade) Dose Ordered Sig/Beau Route Start Time Stop Time Status Last Admin (Pepcid) 20 mg BID PO 08/13/16 21:00 08/29/16 09:22 (D50w (Vial) Inj) 25 ml UNSCH PRN IV PUSH 08/13/16 13:45 (Glucagon Inj) 1 mg UNSCH PRN OTHER 08/13/16 13:45 (NS Flush) 2 ml UNSCH PRN FLUSH 08/13/16 14:00 (NS Flush) 2 ml BID FLUSH 08/13/16 21:00 08/29/16 09:22 (Tylenol) 650 mg Q4H PRN PO 08/13/16 14:00 (Zofran Inj) 4 mg Q6H PRN IVP 08/13/16 14:00 (Narcan Inj) 0.4 mg UNSCH PRN IV 08/13/16 14:00 (Lipitor) 40 mg HS PO 08/13/16 21:00 Hold 08/27/16 21:58 (Tylenol Supp) 650 mg Q6H PRN RECTAL 08/15/16 16:30 08/17/16 21:49 (PROzac) 10 mg DAILY PO 08/24/16 09:00 08/29/16 09:22 Enoxaparin Sodium 30 mg 30 mg Q24H SQ 08/24/16 09:00 08/29/16 09:22 (Diflucan 100 Mg Premix Bag) 50 ml @ 50 mls/hr Q24H IV 08/28/16 13:00 08/29/16 14:56 A/P Problem List: (1) UTI (urinary tract infection) ICD Code: N39.0 Status: Resolved (2) Sepsis ICD Code: A41.9 Status: Acute (3) Altered mental status ICD Code: R41.82 Status: Resolved (4) 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 According to the patient's , he has been having a declining course. Sepsis Appears to be improving after Rocephin started. Initially thought to be due to UTI but urine culture neg. On arrival patient was tachycardic with heart rate 131, rectal temperature 99.8. Labs remarkable for WBC 14.9 K, elevated BUN 28, lactic acid 1.7. CXR images reviewed, unremarkable. One out of 4 blood cultures with staph epidermidis. ?Contaminant. Repeat blood cultures unremarkable. Brain CT and MRI unremarkable. Status post LP. CSF culture negative. Pt with low grade fever and elevated HR 08/26. Resolved. - Sepsis improving on antibiotics. Discussed with Dr. Nemani. Skin lesions could have been the source. - ceftriaxone and vanco discontinued per ID. Monitor off of antibiotics. - urine culture growing yeast. Start IV fluconazole. Hold statin. Neuro-Behcet No new changes on imaging. Patient followed by neurology. Aphasic at baseline. - If neuro status worsening, advised starting steroid. Follow up with neuro. - Consult OT, PT. Will possibly need placement. Case management assistance appreciated. Mood disorder Patient having crying outbursts. He has done that in the past. Could be related to depression. Psychiatry consult appreciated. - fluoxetine started per psych. Mood has been stable. Decreased oral intake and dysphagia Speech therapy following. S/P barium swallow. Patient with severe dysphagia. GI placed PEG. - Continue diet per speech along with tube feeding. Tolerating 08/29. - free water 250 cc every 6 hours. Left upper back and medial antecubital skin tear Etiology unclear. Family reports that it started as a blister. S/p antibiotics. - Continue dressing changes per RN. Dressings changed 08/25. Diabetes Glucose well controlled 08/29. - monitor Accu-Cheks BID and cover with low-dose SSI. Cephalic vein thrombus Noted on LUE US. - hold off on full anticoagulation as superficial vein. Renal insufficiency Likely prerenal. Renal ultrasound with increased echotexture. - IVFs and follow BMP. - check urine sodium and creatinine. Tachycardia HR in the 120s and 130s. Improved with fluids. EKG shows sinus tachycardia. - Telemetry. - Fluids as needed. UTI Urine culture growing Daphney species. - Continue fluconazole started 08/28. DVT Prophylaxis: Lovenox, teds/SCDs. Discharge Planning D/c to SNF when bed available. Case management assistance appreciated. Problem Qualifiers (1) UTI (urinary tract infection): Qualified Code: N39.0 - Urinary tract infection without hematuria, site unspecified Mikie Johnson DO Aug 29, 2016 18:15
[2016-08-29 20:09] VITALS: BP 96/83; PULSE 112; RESP 18; TEMP 97.2; O2SAT 99
[2016-08-30] VITALS: BP 121/69; PULSE 108; RESP 18; TEMP 97.4; O2SAT 99
[2016-08-30 04:00] VITALS: BP 118/70; PULSE 110; RESP 18; TEMP 97.4; O2SAT 98
[2016-08-30] MEDS: INSULIN ASPART SUPPLEMENTAL SCALE SQ SCH ×4 (06:33→22:07)
[2016-08-30 07:30] VITALS: BP 120/68; PULSE 98; RESP 19; TEMP 97.3; O2SAT 98
[2016-08-30] MEDS: FLUoxetine HCL 10 MG CAP PO SCH (08:30)
[2016-08-30] MEDS: ENOXAPARIN SODIUM 30 MG/0.3 ML SYRINGE SQ SCH (08:30)
[2016-08-30] MEDS: FAMOTIDINE 20 MG TAB PO SCH ×2 (08:30→22:07)
[2016-08-30] MEDS: SODIUM CHLORIDE 0.9% FLUSH 5 ML FLUSH FLUSH SCH ×2 (08:31→22:08)
[2016-08-30 10:23] LABS: HEMATOCRIT 34.9 % (39.0-51.0); HEMOGLOBIN 11.4 GM/DL (13.0-17.0); MEAN CELL VOLUME 86.8 FL (80.0-100.0); MEAN CORPUSCULAR HEMOGLOBIN 28.3 PG (27.0-34.0); MEAN CORPUSCULAR HGB CONC 32.6 % (32.0-36.0); MEAN PLATELET VOLUME 8.4 FL (7.0-11.0); PLATELET COUNT 479 TH/MM3 (150-450); RED BLOOD COUNT 4.02 MIL/MM3 (4.50-5.90); RED CELL DISTRIBUTION WIDTH 15.8 % (11.6-17.2); WHITE BLOOD COUNT 9.1 TH/MM3 (4.0-11.0)
[2016-08-30 10:43] LABS: BICARBONATE 30.4 MEQ/L (21.0-32.0); CALCIUM 9.7 MG/DL (8.5-10.1); CREATININE 1.27 MG/DL (0.60-1.30); MAGNESIUM 2.1 MG/DL (1.5-2.5)
--- NOTE | 2016-08-30 11:02 | HHI.PR ---
Subjective Remarks In bed, appears in nad. No pain. no n/v/d/c. no efevr or chills. Has no complaints at this time. Objective Vitals Vital Signs Date Time Temp Pulse Resp B/P Pulse Ox O2 Delivery O2 Flow Rate FiO2 08/30/16 07:30 97.3 98 19 120/68 98 08/30/16 04:00 97.4 110 18 118/70 98 08/30/16 00:00 97.4 108 18 121/69 99 08/29/16 20:09 97.2 112 18 96/83 99 08/29/16 15:30 97.9 101 19 99/77 96 08/29/16 11:20 98.4 108 19 107/80 98 I/O 08/29/16 08/29/16 08/29/16 08/30/16 08/30/16 08/30/16 07:00 15:00 23:00 07:00 15:00 23:00 Intake Total 1140 ml Output Total 400 ml 250 ml Balance -400 ml 890 ml Intake Oral 120 ml Tube Feeding 900 ml Other 120 ml Output Urine Total 400 ml 250 ml # Voids 1 5 2 # Bowel Movements 1 0 Result Diagram: 08/30/16 0910 08/30/16 0910 Imaging Last Impressions Renal Ultrasound 08/28/16 0000 Signed Impressions: Service Date/Time: Sunday, August 28, 2016 20:03 - CONCLUSION: Mild increased echotexture of both kidneys. Baldev Vu MD Chest X-Ray 08/26/16 0000 Signed Impressions: Service Date/Time: Friday, August 26, 2016 11:19 - CONCLUSION: No acute disease. Conrad Steawrt MD FACR Upper Extremity Ultrasound 08/19/16 0000 Signed Impressions: Service Date/Time: Friday, August 19, 2016 22:32 - CONCLUSION: Left cephalic vein occlusive thrombus noted in the antecubital fossa. Baldev Vu MD Lumbar Puncture Fluoroscopy 08/17/16 0000 Signed Impressions: Service Date/Time: Wednesday, August 17, 2016 12:26 - CONCLUSION: Uncomplicated fluoroscopically guided lumbar puncture. Vishal Beckford Jr., MD Brain MRI 08/17/16 0000 Signed Impressions: Service Date/Time: Wednesday, August 17, 2016 13:28 - CONCLUSION: Remote long-standing areas of abnormality in the brainstem and middle cerebellar peduncle consistent with remote infarcts or contusion. No acute intracranial abnormality. Chacho Bright MD Abdomen X-Ray 08/17/16 0000 Signed Impressions: Service Date/Time: Wednesday, August 17, 2016 13:02 - CONCLUSION: No evidence of obstruction. No MRI incompatible foreign body is identified. Chacho Bright MD Head CT 08/16/16 0000 Signed Impressions: Service Date/Time: Tuesday, August 16, 2016 09:55 - CONCLUSION: Chronic ischemic changes left frontal lobe possibly from evidence of previous ventriculostomy placement, unchanged. No acute intracranial abnormality. Gen Potter MD Modified Barium Swallow 08/15/16 0000 Signed Impressions: Service Date/Time: Monday, August 15, 2016 00:00 - CONCLUSION: See report above and speech pathology report Chacho Bright MD Objective Remarks GENERAL: Pleasant 46 yo AA male, chronically ill-appearing male in no apparent distress. Can nod yes/no to questions. SKIN: Left upper back and medial antecubital area with skin tears. Wounds appear clean. Dried wound on the left wrist. CARDIOVASCULAR: Normal rate and regular rhythm without murmurs, gallops, or rubs. RESPIRATORY: Poor respiratory effort. Breath sounds equal and clear to auscultation bilaterally. GASTROINTESTINAL: Abdomen soft, non-distended. Normal active bowel sounds MUSCULOSKELETAL: Extremities without some evidence of contractures. NEURO: Patient is aphasic, can nod yes or no to questions. Follow commands. Generalized weakness. Right hemiparesis from previous stroke. PSYCH: Flattened affect. 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 According to the patient's , he has been having a declining course. Sepsis Appears to be improving after Rocephin started. Initially thought to be due to UTI but urine culture neg. On arrival patient was tachycardic with heart rate 131, rectal temperature 99.8. Labs remarkable for WBC 14.9 K, elevated BUN 28, lactic acid 1.7. CXR images reviewed, unremarkable. One out of 4 blood cultures with staph epidermidis. ?Contaminant. Repeat blood cultures unremarkable. Brain CT and MRI unremarkable. Status post LP. CSF culture negative. Pt with low grade fever and elevated HR 3/. Resolved. - Sepsis improving on antibiotics. Discussed with Dr. Reyes. Skin lesions could have been the source. - ceftriaxone and vanco discontinued per ID. Monitor off of antibiotics. - urine culture growing yeast. Start IV fluconazole. Hold statin. Neuro-Behcet No new changes on imaging. Patient followed by neurology. Aphasic at baseline. - If neuro status worsening, advised starting steroid. Follow up with neuro. - Consult OT, PT. Will possibly need placement. Case management assistance appreciated. Mood disorder Patient having crying outbursts. He has done that in the past. Could be related to depression. Psychiatry consult appreciated. - fluoxetine started per psych. Mood has been stable. Decreased oral intake and dysphagia Speech therapy following. S/P barium swallow. Patient with severe dysphagia. GI placed PEG. - Continue diet per speech along with tube feeding. Tolerating 08/29. - free water 250 cc every 6 hours. Left upper back and medial antecubital skin tear Etiology unclear. Family reports that it started as a blister. S/p antibiotics. - Continue dressing changes per RN. Dressings changed 3. Diabetes Glucose well controlled 08/29. - monitor Accu-Cheks BID and cover with low-dose SSI. Cephalic vein thrombus Noted on LUE US. - hold off on full anticoagulation as superficial vein. Renal insufficiency Likely prerenal. Renal ultrasound with increased echotexture. - IVFs and follow BMP. - check urine sodium and creatinine. Tachycardia, sinus HR in the 120s and 130s. Improved with fluids. EKG shows sinus tachycardia. - Telemetry. - Fluids as needed. UTI Urine culture growing Daphney species. - Continue fluconazole started 08/28. DVT Prophylaxis: Lovenox, teds/SCDs. Discharge Planning DC to SNF when bed available. Case management assistance appreciated. Discussed with the patient, nurse, case management. Problem Qualifiers (1) UTI (urinary tract infection): Qualified Code: N39.0 - Urinary tract infection without hematuria, site unspecified Brittany Garner MD Aug 30, 2016 11:02
--- NOTE | 2016-08-30 11:06 | HHI.DCPOC ---
Discharge Care Plan Goals to Promote Your Health * To prevent worsening of your condition and complications * To maintain your health at the optimal level Directions to Meet Your Goals Take your medications as prescribed Follow your dietary instruction Follow activity as directed Keep your appointments as scheduled Take your immunizations and boosters as scheduled If your symptoms worsen call your PCP, if no PCP go to Urgent Care Center or Emergency Room Smoking is Dangerous to Your Health. Avoid second hand smoke Call the 24-hour hour crisis hotline for domestic abuse at Brittany Garner MD Aug 30, 2016 11:06
--- NOTE | 2016-08-30 11:07 | HHI.HCPN ---
Reason for visit a. To assist with evaluation and management of symptoms including: debility , dysphagia and depression/tearful outbursts. b. To assist medical decision maker(s) with: better understanding of current medical conditions; weighing benefits/burdens of medical treatment options; making medical treatment decisions. . Subjective/Interval History Patient seen in his room, awake and alert alert. Attempting to communicate by mouthing some words and noting head to yes/no questions. Facial grimacing noted but patient denies any shortness of breath, nausea/vomiting, pain or discomfort. Mild crying episode during my visit at this time, asked if he was in pain or sad. Patient answering "no". No family at bedside. Patient afebrile , stable BP. Remains tachycardic with HR in the low 110's. EKG 08/28/16 showing sinus tachycardia. Tolerating her room air. Laboratory to include WBC 9.1, Hgb 11.4, platelets 479. Sodium 138, potassium 4.0, BUN/creatinine 20/1.27. Patient was seen by Psychiatry -Dr. Youssef on 08/23/16. Recommended starting SSRI. Patient placed on Prozac. PT/OT following. . Family/friend interactions Palliative care was initially consulted to assist clarifications of goals of care in the setting of patient's progressive decline and complications. Patient 's showing signs of caregiver stress, needing emotional support and guidance. Palliative care has made several attempts at contacting patient's Tianalexis Harrell, left message in voicemail. Attempted to reach pt's at her place of employment, called [employer] but she was off today. Called alternate phone number , not receiving incoming calls. Sending letter to pt's requesting return call to palliative care. Palliative care will continue to follow-up. . Advance Directives Living Will: Never completed Health Care Surrogate: Never completed Durable Power of Blueberry Grower: Never completed Advance Directive Specifics Health Care Surrogate(s): No living will or healthcare surrogate designation found in medical records. Patricia Harrell acting as healthcare proxy. Unclear at this time if they are legally . . Documented care wishes: No living well documented. Significant change in goals: Pending contact with patient's . Patient FULL CODE on previous hospitalizations. Objective Vital Signs Date Time Temp Pulse Resp B/P Pulse Ox O2 Delivery O2 Flow Rate FiO2 08/30/16 07:30 97.3 98 19 120/68 98 08/30/16 04:00 97.4 110 18 118/70 98 08/30/16 00:00 97.4 108 18 121/69 99 08/29/16 20:09 97.2 112 18 96/83 99 08/29/16 15:30 97.9 101 19 99/77 96 08/29/16 11:20 98.4 108 19 107/80 98 Intake & Output 08/30/16 08/30/16 07:00 19:00 Intake Total 1140 ml Output Total 650 ml Balance 490 ml Intake Oral 120 ml Tube Feeding 900 ml Other 120 ml Output Urine Total 650 ml Physical Exam CONSTITUTIONAL/GENERAL: This is a thin patient in no acute distress, aphasic, limited communication. Nodding head yes/no to questions. Mouthing some words. TUBES/LINES/DRAINS: PIV's, PEG tube. SKIN: No jaundice. Skin temperature appropriate. Not diaphoretic. HEAD: Atraumatic. Normocephalic. EYES: Pupils equal and round and reactive. ENT: Hearing grossly normal. Nose without bleeding or purulent drainage. Throat without visible erythema or exudates. Moderate amount of oral clear secretions. NECK: Trachea midline. Supple, nontender. CARDIOVASCULAR: Regular rate and rhythm without murmurs, gallops, or rubs. No JVD. Peripheral pulses symmetric. RESPIRATORY/CHEST: Symmetric, unlabored respirations. Clear breath sounds bilaterally. GASTROINTESTINAL: Abdomen soft, non-tender, nondistended. PEG tube in place, same cover with dressing. No guarding. Bowel sounds present. GENITOURINARY: Without palpable bladder distension. MUSCULOSKELETAL: Extremities without clubbing, cyanosis, or edema. Muscle wasting noted. NEUROLOGICAL: Awake and alert. Following some commands. Right-sided hemiparesis. Weak hand grasp on the left. PSYCHIATRIC: Appears calm. . Diagnostic Tests Laboratory Laboratory Tests Test 08/27/16 08/28/16 08/30/16 12:25 09:49 09:10 White Blood Count 8.7 TH/MM3 9.1 TH/MM3 (4.0-11.0) (4.0-11.0) Red Blood Count 3.84 MIL/MM3 4.02 MIL/MM3 (4.50-5.90) (4.50-5.90) Hemoglobin 11.0 GM/DL 11.4 GM/DL (13.0-17.0) (13.0-17.0) Hematocrit 33.4 % 34.9 % (39.0-51.0) (39.0-51.0) Mean Corpuscular Volume 87.0 FL 86.8 FL (80.0-100.0) (80.0-100.0) Mean Corpuscular Hemoglobin 28.7 PG 28.3 PG (27.0-34.0) (27.0-34.0) Mean Corpuscular Hemoglobin 33.0 % 32.6 % Concent (32.0-36.0) (32.0-36.0) Red Cell Distribution Width 15.9 % 15.8 % (11.6-17.2) (11.6-17.2) Platelet Count 495 TH/MM3 479 TH/MM3 (150-450) (150-450) Mean Platelet Volume 8.2 FL 8.4 FL (7.0-11.0) (7.0-11.0) Neutrophils (%) (Auto) 77.0 % (16.0-70.0) Lymphocytes (%) (Auto) 17.0 % (9.0-44.0) Monocytes (%) (Auto) 4.7 % (0.0-8.0) Eosinophils (%) (Auto) 0.9 % (0.0-4.0) Basophils (%) (Auto) 0.4 % (0.0-2.0) Neutrophils # (Auto) 6.7 TH/MM3 (1.8-7.7) Lymphocytes # (Auto) 1.5 TH/MM3 (1.0-4.8) Monocytes # (Auto) 0.4 TH/MM3 (0-0.9) Eosinophils # (Auto) 0.1 TH/MM3 (0-0.4) Basophils # (Auto) 0.0 TH/MM3 (0-0.2) CBC Comment DIFF FINAL Differential Comment Sodium Level 136 MEQ/L 138 MEQ/L (136-145) (136-145) Potassium Level 4.6 MEQ/L 4.0 MEQ/L (3.5-5.1) (3.5-5.1) Chloride Level 97 MEQ/L 99 MEQ/L (98-107) (98-107) Carbon Dioxide Level 28.8 MEQ/L 30.4 MEQ/L (21.0-32.0) (21.0-32.0) Anion Gap 10 MEQ/L (5-15) 9 MEQ/L (5-15) Blood Urea Nitrogen 20 MG/DL (7-18) 20 MG/DL (7-18) Creatinine 1.41 MG/DL 1.27 MG/DL (0.60-1.30) (0.60-1.30) Estimat Glomerular Filtration 66 ML/MIN (>89) 75 ML/MIN (>89) Rate Random Glucose 145 MG/DL 108 MG/DL (74-106) (74-106) Calcium Level 9.6 MG/DL 9.7 MG/DL (8.5-10.1) (8.5-10.1) Magnesium Level 2.1 MG/DL (1.5-2.5) Result Diagram: 08/30/16 0910 08/30/16 0910 Imaging Last 72 hours Impressions Renal Ultrasound 08/28/16 0000 Signed Impressions: Service Date/Time: Sunday, August 28, 2016 20:03 - CONCLUSION: Mild increased echotexture of both kidneys. Baldev Vu MD Procedures * 08/19/16 -PEG tube placement * 08/17/16- lumbar puncture . Assessment and Plan Disease Oriented Problem List: (1) Neurologic type Behcet's syndrome (2) Sepsis (3) Impaired mobility and activities of daily living Symptom Scale: (1) Debility 0-10 Scale: Unable to quantify Comment: Progressive secondary to neuro-Behcet's syndrome, CVA. Now bed bound. (2) Depression 0-10 Scale: Unable to quantify Comment: History of depression, on Celexa at home. Crying outburst. Pertinent Non-Medical Issues Psychosocial: Reported as . Unknown if he has any children. Spiritual: No spiritual affiliations. Legal: No living will or advanced directives found in medical records. Patricia Harrell presented as and has been acting as healthcare proxy. Ethical issues impacting care: No living will or advanced directives found in medical records. Patricia Harrell presented as and has been acting as healthcare proxy. . Important Contacts Patricia Harrell -reported as . [phone]. . Prognosis Mr. 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 Patient presented to the ED on 08/13/16 via EMS were reports of decreased oral intake for the prior 2-3 days and skin tear to left upper extremity. He was admitted for sepsis. Patient is at high risk for further complications, continue decline and . His diagnosis of neuro- Behcet's syndrome was done at [facility], pending medical records for confirmation. Unknown if prognosis was provided. Evidence shows high mortality in neuro-Behcet's syndrome of about 25% in the first year after neurological manifestations. . Plan * CODE STATUS: Unclear at this time. Several attempts to contact . Patient listed as FULL CODE in prior admissions. * HEALTHCARE DECISION-MAKER: No living will or healthcare surrogate designation found in medical records. Patricia Harrell acting as healthcare proxy. Unclear at this time if they are legally . * GOALS OF CARE: Pending family meeting to discuss goals of care. Several attempts to contact patient's . Palliative care will continue to follow- up. * SYMPTOMS: == Depression/crying-tearful outbursts. Seen by psych on 08/23, currently on SSRI. Much controlled. = Debility, likely to continue to worsen. Unclear if patient would benefit from rehabilitation at discharge. PT/OT following. * Palliative care contact information has been provided to patient's via telephone voicemail. Several attempts at contacting family. Sending letter to patient's requeting to contact palliative care. * Palliative care will continue to follow-up with this patient and family for clarifications of goals of care and support during this difficult time. . Time Spent Total Floor Time (mins): 32 (Total time to inclure review and summarization of available medical records, physical exam, several attempts/phone calls at contacting and case discussion with Dr. Farmer. ) Attestation To help prompt me to consider important information that might be impacting today's encounter and assessment, information from prior notes written by myself or my colleagues may have been "brought forward" into today's note. My signature on this note, however, is an attestation that I personally performed the exam, history, and/or decision-making noted today, and, unless otherwise indicated, the interactions with patient, family, and staff as well as the review of records all occurred today. I also attest that the listed assessment and stated plan reflect my best clinical judgment today based on the combination of historical information, prior notes, and today's exam/ interactions. When time spent is documented, it refers only to time spent today by the signer, or if indicated, combined time spent today by collaborating physician/nurse practitioner. Esther Varma Aug 30, 2016 11:07
[2016-08-30 11:40] VITALS: BP 117/84; PULSE 107; RESP 19; TEMP 96.5; O2SAT 97
[2016-08-30] MEDS: FLUCONAZOLE 100 MG PREMIX BAG 50 ML IV SCH (13:32)
[2016-08-30 15:25] VITALS: BP 105/79; PULSE 100; RESP 19; TEMP 97.7; O2SAT 99
[2016-08-30 20:00] VITALS: BP 122/89; PULSE 100; RESP 18; TEMP 97.9; O2SAT 98
[2016-08-31 00:44] VITALS: BP 124/84; PULSE 104; RESP 18; TEMP 98; O2SAT 98
[2016-08-31 04:00] VITALS: BP 121/96; PULSE 104; RESP 20; TEMP 96.7; O2SAT 99
[2016-08-31] MEDS: INSULIN ASPART SUPPLEMENTAL SCALE SQ SCH ×4 (07:00→22:13)
[2016-08-31 07:35] VITALS: BP 127/83; PULSE 111; RESP 19; TEMP 98.7; O2SAT 99
[2016-08-31] MEDS: ENOXAPARIN SODIUM 30 MG/0.3 ML SYRINGE SQ SCH (08:28)
[2016-08-31] MEDS: FLUoxetine HCL 10 MG CAP PO SCH (08:28)
[2016-08-31] MEDS: FAMOTIDINE 20 MG TAB PO SCH ×2 (08:28→22:13)
[2016-08-31] MEDS: SODIUM CHLORIDE 0.9% FLUSH 5 ML FLUSH FLUSH SCH ×2 (08:32→22:13)
--- NOTE | 2016-08-31 09:49 | HHI.PR ---
Subjective Remarks In bed, doesn't appear in acute distress. Answers questions nodding yes/no. No fever or chills. No n/v/d/c. No events overnight. Objective Vitals Vital Signs Date Time Temp Pulse Resp B/P Pulse Ox O2 Delivery O2 Flow Rate FiO2 08/31/16 07:35 98.7 111 19 127/83 99 08/31/16 04:00 96.7 104 20 121/96 99 08/31/16 00:44 98.0 104 18 124/84 98 08/30/16 20:00 97.9 100 18 122/89 98 08/30/16 15:25 97.7 100 19 105/79 99 08/30/16 11:40 96.5 107 19 117/84 97 I/O 08/30/16 08/30/16 08/30/16 08/31/16 08/31/16 08/31/16 07:00 15:00 23:00 07:00 15:00 23:00 Intake Total 1140 ml 240 ml 120 ml Output Total 250 ml 900 ml 750 ml 100 ml Balance 890 ml -900 ml -510 ml 20 ml Intake Oral 120 ml 240 ml 120 ml Tube Feeding 900 ml Other 120 ml Output Urine Total 250 ml 900 ml 750 ml 100 ml # Voids 1 # Bowel Movements 0 1 Result Diagram: 08/30/16 0910 08/30/16 0910 Imaging Last Impressions Renal Ultrasound 08/28/16 0000 Signed Impressions: Service Date/Time: Sunday, August 28, 2016 20:03 - CONCLUSION: Mild increased echotexture of both kidneys. Baldev Vu MD Chest X-Ray 08/26/16 0000 Signed Impressions: Service Date/Time: Friday, August 26, 2016 11:19 - CONCLUSION: No acute disease. Conrad Stewart MD FACR Upper Extremity Ultrasound 08/19/16 0000 Signed Impressions: Service Date/Time: Friday, August 19, 2016 22:32 - CONCLUSION: Left cephalic vein occlusive thrombus noted in the antecubital fossa. Baldev Vu MD Lumbar Puncture Fluoroscopy 08/17/16 0000 Signed Impressions: Service Date/Time: Wednesday, August 17, 2016 12:26 - CONCLUSION: Uncomplicated fluoroscopically guided lumbar puncture. Vishal Beckford Jr., MD Brain MRI 08/17/16 0000 Signed Impressions: Service Date/Time: Wednesday, August 17, 2016 13:28 - CONCLUSION: Remote long-standing areas of abnormality in the brainstem and middle cerebellar peduncle consistent with remote infarcts or contusion. No acute intracranial abnormality. Chacho Bright MD Abdomen X-Ray 08/17/16 0000 Signed Impressions: Service Date/Time: Wednesday, August 17, 2016 13:02 - CONCLUSION: No evidence of obstruction. No MRI incompatible foreign body is identified. Chacho Bright MD Head CT 08/16/16 0000 Signed Impressions: Service Date/Time: Tuesday, August 16, 2016 09:55 - CONCLUSION: Chronic ischemic changes left frontal lobe possibly from evidence of previous ventriculostomy placement, unchanged. No acute intracranial abnormality. Gen Potter MD Modified Barium Swallow 08/15/16 0000 Signed Impressions: Service Date/Time: Monday, August 15, 2016 00:00 - CONCLUSION: See report above and speech pathology report Chacho Bright MD Objective Remarks GENERAL: Pleasant 46 yo AA male, chronically ill-appearing male in no apparent distress. Can nod yes/no to questions. SKIN: Left upper back and medial antecubital area with skin tears. Wounds appear clean. Dried wound on the left wrist. CARDIOVASCULAR: Normal rate and regular rhythm without murmurs, gallops, or rubs. RESPIRATORY: Poor respiratory effort. Breath sounds equal and clear to auscultation bilaterally. GASTROINTESTINAL: Abdomen soft, non-distended. Normal active bowel sounds MUSCULOSKELETAL: Extremities without some evidence of contractures. NEURO: Patient is aphasic, can nod yes or no to questions. Follow commands. Generalized weakness. Right hemiparesis from previous stroke. PSYCH: Flattened affect. A/P Problem List: (1) UTI (urinary tract infection) ICD Code: N39.0 Status: Resolved (2) Sepsis ICD Code: A41.9 Status: Acute (3) Altered mental status ICD Code: R41.82 Status: Resolved (4) 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 (5) Impaired mobility and activities of daily living ICD Code: Z74.09 Status: Acute Assessment and Plan 46-year-old male with history of neuro-Behcet's diagnosed at [place], left frontal CVA, bedbound, nonverbal, mural thrombus, history of brain abscess, meningitis, hypertension, diabetes, presents for decreased oral intake 23 days prior to admission, and skin tear at the left upper extremity and upper back. According to the patient's , he has been having a declining course. Sepsis Appears to be improving after Rocephin started. Initially thought to be due to UTI but urine culture neg. On arrival patient was tachycardic with heart rate 131, rectal temperature 99.8. Labs remarkable for WBC 14.9 K, elevated BUN 28, lactic acid 1.7. CXR images reviewed, unremarkable. One out of 4 blood cultures with staph epidermidis. ?Contaminant. Repeat blood cultures unremarkable. Brain CT and MRI unremarkable. Status post LP. CSF culture negative. Pt with low grade fever and elevated HR 3/. Resolved. - Sepsis improving on antibiotics. Discussed with Dr. Reyes. Skin lesions could have been the source. - ceftriaxone and vanco discontinued per ID. Monitor off of antibiotics. - urine culture growing yeast. Start IV fluconazole. Hold statin. Neuro-Behcet No new changes on imaging. Patient followed by neurology. Aphasic at baseline. - If neuro status worsening, advised starting steroid. Follow up with neuro. - Consult OT, PT. Will possibly need placement. Case management assistance appreciated. Mood disorder Patient having crying outbursts. He has done that in the past. Could be related to depression. Psychiatry consult appreciated. - fluoxetine started per psych. Mood has been stable. Decreased oral intake and dysphagia Speech therapy following. S/P barium swallow. Patient with severe dysphagia. GI placed PEG. - Continue diet per speech along with tube feeding. Tolerating 08/29. - free water 250 cc every 6 hours. Left upper back and medial antecubital skin tear Etiology unclear. Family reports that it started as a blister. S/p antibiotics. - Continue dressing changes per RN. Dressings changed 3/. Diabetes Glucose well controlled 08/29. - monitor Accu-Cheks BID and cover with low-dose SSI. Cephalic vein thrombus Noted on LUE US. - hold off on full anticoagulation as superficial vein. Renal insufficiency Likely prerenal. Renal ultrasound with increased echotexture. - IVFs and follow BMP. - check urine sodium and creatinine. Tachycardia, sinus HR in the 120s and 130s. Improved with fluids. EKG shows sinus tachycardia. - Telemetry. - Fluids as needed. UTI Urine culture growing Daphney species. - Continue fluconazole started 08/28. DVT Prophylaxis: Lovenox, teds/SCDs. Discharge Planning DC to SNF when bed available. Case management assistance appreciated. Discussed with the patient, nurse. Problem Qualifiers (1) UTI (urinary tract infection): Qualified Code: N39.0 - Urinary tract infection without hematuria, site unspecified Brittany Garner MD Aug 31, 2016 09:49
[2016-08-31 11:45] VITALS: BP 117/92; PULSE 106; RESP 19; TEMP 97.7; O2SAT 98
[2016-08-31] MEDS: FLUCONAZOLE 100 MG PREMIX BAG 50 ML IV SCH (12:30)
[2016-08-31 15:20] VITALS: BP 125/89; PULSE 114; RESP 19; TEMP 98.3; O2SAT 96
[2016-08-31 20:00] VITALS: BP 137/85; PULSE 110; RESP 18; TEMP 99.4; O2SAT 97
[2016-09-01 00:04] VITALS: BP 129/88; PULSE 114; RESP 18; TEMP 98.7; O2SAT 97
[2016-09-01 04:00] VITALS: BP 127/80; PULSE 116; RESP 18; TEMP 97.8; O2SAT 95
[2016-09-01] MEDS: INSULIN ASPART SUPPLEMENTAL SCALE SQ SCH ×4 (07:00→21:25)
[2016-09-01 08:24] VITALS: BP 119/89; PULSE 114; RESP 17; TEMP 99.7; O2SAT 96
[2016-09-01] MEDS: FLUoxetine HCL 10 MG CAP PO SCH (08:31)
[2016-09-01] MEDS: FAMOTIDINE 20 MG TAB PO SCH ×2 (08:31→21:25)
[2016-09-01] MEDS: ENOXAPARIN SODIUM 30 MG/0.3 ML SYRINGE SQ SCH (08:31)
[2016-09-01] MEDS: SODIUM CHLORIDE 0.9% FLUSH 5 ML FLUSH FLUSH SCH ×2 (08:32→21:25)
[2016-09-01 13:30] VITALS: BP 116/94; PULSE 122; RESP 16; TEMP 99.2; O2SAT 96
[2016-09-01] MEDS: FLUCONAZOLE 100 MG PREMIX BAG 50 ML IV SCH (14:34)
--- NOTE | 2016-09-01 14:40 | HHI.PR ---
Subjective Remarks With tachycardia, he is in the chair. Feels tired. No n/v/d/c. No chest pain. He doesn't feel palpitations. Objective Vitals Vital Signs Date Time Temp Pulse Resp B/P Pulse Ox O2 Delivery O2 Flow Rate FiO2 09/01/16 13:30 99.2 122 16 116/94 96 09/01/16 08:24 99.7 114 17 119/89 96 09/01/16 04:00 97.8 116 18 127/80 95 09/01/16 00:04 98.7 114 18 129/88 97 08/31/16 20:00 99.4 110 18 137/85 97 08/31/16 15:20 98.3 114 19 125/89 96 I/O 08/31/16 08/31/16 08/31/16 09/01/16 09/01/16 09/01/16 07:00 15:00 23:00 07:00 15:00 23:00 Intake Total 120 ml 600 ml Output Total 100 ml 300 ml 600 ml Balance 20 ml 300 ml -600 ml Intake Oral 120 ml 600 ml Output Urine Total 100 ml 300 ml 600 ml # Voids 1 2 # Bowel Movements 2 Result Diagram: 08/30/16 0910 08/30/16 0910 Imaging Last Impressions Renal Ultrasound 08/28/16 0000 Signed Impressions: Service Date/Time: Sunday, August 28, 2016 20:03 - CONCLUSION: Mild increased echotexture of both kidneys. Baldev Vu MD Chest X-Ray 08/26/16 0000 Signed Impressions: Service Date/Time: Friday, August 26, 2016 11:19 - CONCLUSION: No acute disease. Conrad Stewart MD FACR Upper Extremity Ultrasound 08/19/16 0000 Signed Impressions: Service Date/Time: Friday, August 19, 2016 22:32 - CONCLUSION: Left cephalic vein occlusive thrombus noted in the antecubital fossa. Baldev Vu MD Lumbar Puncture Fluoroscopy 08/17/16 0000 Signed Impressions: Service Date/Time: Wednesday, August 17, 2016 12:26 - CONCLUSION: Uncomplicated fluoroscopically guided lumbar puncture. Vishal Beckford Jr., MD Brain MRI 08/17/16 0000 Signed Impressions: Service Date/Time: Wednesday, August 17, 2016 13:28 - CONCLUSION: Remote long-standing areas of abnormality in the brainstem and middle cerebellar peduncle consistent with remote infarcts or contusion. No acute intracranial abnormality. Chacho Bright MD Abdomen X-Ray 08/17/16 0000 Signed Impressions: Service Date/Time: Wednesday, August 17, 2016 13:02 - CONCLUSION: No evidence of obstruction. No MRI incompatible foreign body is identified. Chacho Bright MD Head CT 08/16/16 0000 Signed Impressions: Service Date/Time: Tuesday, August 16, 2016 09:55 - CONCLUSION: Chronic ischemic changes left frontal lobe possibly from evidence of previous ventriculostomy placement, unchanged. No acute intracranial abnormality. Gen Potter MD Modified Barium Swallow 08/15/16 0000 Signed Impressions: Service Date/Time: Monday, August 15, 2016 00:00 - CONCLUSION: See report above and speech pathology report Chacho Bright MD Objective Remarks GENERAL: Pleasant 46 yo AA male, chronically ill-appearing male in no apparent distress. Can nod yes/no to questions. SKIN: Left upper back and medial antecubital area with skin tears. Wounds appear clean. Dried wound on the left wrist. CARDIOVASCULAR: Normal rate and regular rhythm without murmurs, gallops, or rubs. RESPIRATORY: Poor respiratory effort. Breath sounds equal and clear to auscultation bilaterally. GASTROINTESTINAL: Abdomen soft, non-distended. Normal active bowel sounds MUSCULOSKELETAL: Extremities without some evidence of contractures. NEURO: Patient is aphasic, can nod yes or no to questions. Follow commands. Generalized weakness. Right hemiparesis from previous stroke. PSYCH: Flattened affect. A/P Problem List: (1) UTI (urinary tract infection) ICD Code: N39.0 Status: Resolved (2) Sepsis ICD Code: A41.9 Status: Acute (3) Altered mental status ICD Code: R41.82 Status: Resolved (4) 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 (5) Impaired mobility and activities of daily living ICD Code: Z74.09 Status: Acute Assessment and Plan 46-year-old male with history of neuro-Behcet's diagnosed at [place], left frontal CVA, bedbound, nonverbal, mural thrombus, history of brain abscess, meningitis, hypertension, diabetes, presents for decreased oral intake 23 days prior to admission, and skin tear at the left upper extremity and upper back. According to the patient's , he has been having a declining course. Sepsis Appears to be improving after Rocephin started. Initially thought to be due to UTI but urine culture neg. On arrival patient was tachycardic with heart rate 131, rectal temperature 99.8. Labs remarkable for WBC 14.9 K, elevated BUN 28, lactic acid 1.7. CXR images reviewed, unremarkable. One out of 4 blood cultures with staph epidermidis. ?Contaminant. Repeat blood cultures unremarkable. Brain CT and MRI unremarkable. Status post LP. CSF culture negative. Pt with low grade fever and elevated HR 3/. Resolved. - Sepsis improving on antibiotics. Discussed with Dr. Reyes. Skin lesions could have been the source. - ceftriaxone and vanco discontinued per ID. Monitor off of antibiotics. - urine culture growing yeast. On IV fluconazole. Hold statin. Patient with persistent sinus tachycardia. EKG ordered and reviewed with sinus tachycardia. Will start atenolol 12.5 mg po daily if BP permits. Monitor VS. Monitor on telemetry. Neuro-Behcet No new changes on imaging. Patient followed by neurology. Aphasic at baseline. - If neuro status worsening, advised starting steroid. Follow up with neuro. - Consult OT, PT. Will possibly need placement. Case management assistance appreciated. Mood disorder Patient having crying outbursts. He has done that in the past. Could be related to depression. Psychiatry consult appreciated. - fluoxetine started per psych. Mood has been stable. Decreased oral intake and dysphagia Speech therapy following. S/P barium swallow. Patient with severe dysphagia. GI placed PEG. - Continue diet per speech along with tube feeding. Tolerating 08/29. - free water 250 cc every 6 hours. Left upper back and medial antecubital skin tear Etiology unclear. Family reports that it started as a blister. S/p antibiotics. - Continue dressing changes per RN. Dressings changed 08/25. Diabetes Glucose well controlled 08/29. - monitor Accu-Cheks BID and cover with low-dose SSI. Cephalic vein thrombus Noted on LUE US. - hold off on full anticoagulation as superficial vein. Renal insufficiency Likely prerenal. Renal ultrasound with increased echotexture. - IVFs and follow BMP. - check urine sodium and creatinine. UTI Urine culture growing Daphney species. - Continue fluconazole started 08/28. DVT Prophylaxis: Lovenox, teds/SCDs. Discharge Planning DC to SNF when bed available. Case management assistance appreciated. Discussed with the patient, nurse. Problem Qualifiers (1) UTI (urinary tract infection): Qualified Code: N39.0 - Urinary tract infection without hematuria, site unspecified Brittany Garner MD Sep 01, 2016 14:40 Brittany Garner MD Sep 01, 2016 14:40
[2016-09-01] MEDS: SODIUM CHLOR 0.9% 1000 ML INJ 1,000 ML IV SCH (14:45)
[2016-09-01 16:19] VITALS: BP 120/86; PULSE 114; RESP 16; TEMP 97.2; O2SAT 99
[2016-09-01 21:04] VITALS: BP 142/86; PULSE 118; RESP 16; TEMP 97; O2SAT 95
[2016-09-02 01:06] VITALS: BP 132/87; PULSE 95; RESP 18; TEMP 97; O2SAT 99
[2016-09-02] MEDS: SODIUM CHLOR 0.9% 1000 ML INJ 1,000 ML IV SCH ×2 (02:55→17:28)
[2016-09-02 05:47] VITALS: BP 142/88; PULSE 101; RESP 18; TEMP 97.6; O2SAT 98
[2016-09-02] MEDS: INSULIN ASPART SUPPLEMENTAL SCALE SQ SCH ×4 (06:07→21:00)
[2016-09-02 08:51] VITALS: BP 108/77; PULSE 106; RESP 16; TEMP 98; O2SAT 96
[2016-09-02] MEDS: FLUoxetine HCL 10 MG CAP PO SCH (09:11)
[2016-09-02] MEDS: ATENOLOL 25 MG TAB PO SCH (09:11)
[2016-09-02] MEDS: FAMOTIDINE 20 MG TAB PO SCH ×2 (09:11→21:49)
[2016-09-02] MEDS: SODIUM CHLORIDE 0.9% FLUSH 5 ML FLUSH FLUSH SCH ×2 (09:11→21:49)
[2016-09-02] MEDS: ENOXAPARIN SODIUM 40 MG/0.4 ML SYRINGE SQ SCH (09:13)
[2016-09-02 12:43] VITALS: BP 108/71; PULSE 86; RESP 16; TEMP 98.4; O2SAT 98
[2016-09-02] MEDS: FLUCONAZOLE 100 MG PREMIX BAG 50 ML IV SCH (14:03)
--- NOTE | 2016-09-02 17:22 | HHI.PR ---
Subjective Remarks Appears in nad, watching TV. No complaints. No chest pain, denies n/v/d/c. Objective Vitals Vital Signs Date Time Temp Pulse Resp B/P Pulse Ox O2 Delivery O2 Flow Rate FiO2 09/02/16 12:43 98.4 86 16 108/71 98 09/02/16 08:51 98.0 106 16 108/77 96 09/02/16 05:47 97.6 101 18 142/88 98 09/02/16 01:06 97.0 95 18 132/87 99 09/01/16 21:04 97.0 118 16 142/86 95 I/O 09/01/16 09/01/16 09/01/16 09/02/16 09/02/16 09/02/16 07:00 15:00 23:00 07:00 15:00 23:00 Output Total 600 ml 400 ml 1250 ml Balance -600 ml -400 ml -1250 ml Output Urine Total 600 ml 400 ml 1250 ml # Bowel Movements 2 Result Diagram: 08/30/16 0910 08/30/16 0910 Imaging Last Impressions Renal Ultrasound 08/28/16 0000 Signed Impressions: Service Date/Time: Sunday, August 28, 2016 20:03 - CONCLUSION: Mild increased echotexture of both kidneys. Baldev Vu MD Chest X-Ray 08/26/16 0000 Signed Impressions: Service Date/Time: Friday, August 26, 2016 11:19 - CONCLUSION: No acute disease. Conrad Stewart MD FACR Upper Extremity Ultrasound 08/19/16 0000 Signed Impressions: Service Date/Time: Friday, August 19, 2016 22:32 - CONCLUSION: Left cephalic vein occlusive thrombus noted in the antecubital fossa. Baldev Vu MD Lumbar Puncture Fluoroscopy 08/17/16 0000 Signed Impressions: Service Date/Time: Wednesday, August 17, 2016 12:26 - CONCLUSION: Uncomplicated fluoroscopically guided lumbar puncture. Vishal Beckford Jr., MD Brain MRI 08/17/16 0000 Signed Impressions: Service Date/Time: Wednesday, August 17, 2016 13:28 - CONCLUSION: Remote long-standing areas of abnormality in the brainstem and middle cerebellar peduncle consistent with remote infarcts or contusion. No acute intracranial abnormality. Chacho Brgiht MD Abdomen X-Ray 08/17/16 0000 Signed Impressions: Service Date/Time: Wednesday, August 17, 2016 13:02 - CONCLUSION: No evidence of obstruction. No MRI incompatible foreign body is identified. Chacho Bright MD Head CT 08/16/16 0000 Signed Impressions: Service Date/Time: Tuesday, August 16, 2016 09:55 - CONCLUSION: Chronic ischemic changes left frontal lobe possibly from evidence of previous ventriculostomy placement, unchanged. No acute intracranial abnormality. Gen Potter MD Modified Barium Swallow 08/15/16 0000 Signed Impressions: Service Date/Time: Monday, August 15, 2016 00:00 - CONCLUSION: See report above and speech pathology report Chacho Bright MD Objective Remarks GENERAL: Pleasant 46 yo AA male, chronically ill-appearing male in no apparent distress. Can nod yes/no to questions. SKIN: Left upper back and medial antecubital area with skin tears. Wounds appear clean. Dried wound on the left wrist. CARDIOVASCULAR: Normal rate and regular rhythm without murmurs, gallops, or rubs. RESPIRATORY: Poor respiratory effort. Breath sounds equal and clear to auscultation bilaterally. GASTROINTESTINAL: Abdomen soft, non-distended. Normal active bowel sounds MUSCULOSKELETAL: Extremities without some evidence of contractures. NEURO: Patient is aphasic, can nod yes or no to questions. Follow commands. Generalized weakness. Right hemiparesis from previous stroke. PSYCH: Flattened affect. 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 According to the patient's , he has been having a declining course. Sepsis Appears to be improving after Rocephin started. Initially thought to be due to UTI but urine culture neg. On arrival patient was tachycardic with heart rate 131, rectal temperature 99.8. Labs remarkable for WBC 14.9 K, elevated BUN 28, lactic acid 1.7. CXR images reviewed, unremarkable. One out of 4 blood cultures with staph epidermidis. ?Contaminant. Repeat blood cultures unremarkable. Brain CT and MRI unremarkable. Status post LP. CSF culture negative. Pt with low grade fever and elevated HR 3/3. Resolved. - Sepsis improving on antibiotics. Discussed with Dr. Reyes. Skin lesions could have been the source. - ceftriaxone and vanco discontinued per ID. Monitor off of antibiotics. - urine culture growing yeast. On IV fluconazole. Hold statin. Patient with persistent sinus tachycardia. EKG ordered and reviewed with sinus tachycardia. Will start atenolol 12.5 mg po daily if BP permits. Monitor VS. Monitor on telemetry. Neuro-Behcet No new changes on imaging. Patient followed by neurology. Aphasic at baseline. - If neuro status worsening, advised starting steroid. Follow up with neuro. - Consult OT, PT. Will possibly need placement. Case management assistance appreciated. Mood disorder Patient having crying outbursts. He has done that in the past. Could be related to depression. Psychiatry consult appreciated. - fluoxetine started per psych. Mood has been stable. Decreased oral intake and dysphagia Speech therapy following. S/P barium swallow. Patient with severe dysphagia. GI placed PEG. - Continue diet per speech along with tube feeding. Tolerating 08/29. - free water 250 cc every 6 hours. Left upper back and medial antecubital skin tear Etiology unclear. Family reports that it started as a blister. S/p antibiotics. - Continue dressing changes per RN. Dressings changed 3. Diabetes Glucose well controlled 08/29. - monitor Accu-Cheks BID and cover with low-dose SSI. Cephalic vein thrombus Noted on LUE US. - hold off on full anticoagulation as superficial vein. Renal insufficiency Likely prerenal. Renal ultrasound with increased echotexture. - IVFs and follow BMP. - check urine sodium and creatinine. UTI Urine culture growing Daphney species. - Continue fluconazole started 08/28. DVT Prophylaxis: Lovenox, teds/SCDs. Discharge Planning DC to SNF when bed available. Case management assistance appreciated. Discussed with the patient, nurse. Problem Qualifiers (1) UTI (urinary tract infection): Qualified Code: N39.0 - Urinary tract infection without hematuria, site unspecified Brittany Garner MD Sep 02, 2016 17:22
[2016-09-02 17:52] VITALS: BP 115/79; PULSE 87; RESP 16; TEMP 97.9; O2SAT 98
[2016-09-02 20:00] VITALS: BP 123/25; PULSE 90; RESP 28; TEMP 96.4; O2SAT 97
[2016-09-03] VITALS (7 sets, daily range): BP systolic 120–144; BP diastolic 70–94; PULSE 72–127; RESP 17–24; TEMP 97.7–101.7; O2SAT 95–99
[2016-09-03] MEDS: SODIUM CHLOR 0.9% 1000 ML INJ 1,000 ML IV SCH ×2 (05:03→12:48)
[2016-09-03] MEDS: INSULIN ASPART SUPPLEMENTAL SCALE SQ SCH ×4 (07:00→20:25)
[2016-09-03] MEDS: FLUoxetine HCL 10 MG CAP PO SCH (08:05)
[2016-09-03] MEDS: ENOXAPARIN SODIUM 40 MG/0.4 ML SYRINGE SQ SCH (08:05)
[2016-09-03] MEDS: FAMOTIDINE 20 MG TAB PO SCH ×2 (08:05→20:24)
[2016-09-03] MEDS: ACETAMINOPHEN 325 MG TAB PO PRN ×2 (08:06→20:59)
[2016-09-03] MEDS: ATENOLOL 25 MG TAB PO SCH (08:06)
[2016-09-03] MEDS: SODIUM CHLORIDE 0.9% FLUSH 5 ML FLUSH FLUSH SCH ×2 (08:06→20:25)
[2016-09-03] MEDS: FLUCONAZOLE 100 MG PREMIX BAG 50 ML IV SCH (12:48)
--- NOTE | 2016-09-03 15:48 | HHI.PR ---
Subjective Remarks In bed watching TV doesn't appear in acute distress. No complaints. Denies cp, sob, n/v/d/c. Objective Vitals Vital Signs Date Time Temp Pulse Resp B/P Pulse Ox O2 Delivery O2 Flow Rate FiO2 09/03/16 12:19 101.1 105 18 144/94 95 09/03/16 08:23 101.7 127 17 143/88 95 09/03/16 04:00 97.7 88 24 99 09/03/16 00:00 97.7 86 24 120/70 09/02/16 20:00 96.4 90 28 123/25 97 09/02/16 17:52 97.9 87 16 115/79 98 I/O 09/02/16 09/02/16 09/02/16 09/03/16 09/03/16 09/03/16 07:00 15:00 23:00 07:00 15:00 23:00 Intake Total 4784 ml 401 ml 1173 ml 1474 ml Output Total 1250 ml 250 ml 0 ml Balance -1250 ml 4534 ml 401 ml 1173 ml 1474 ml Intake Oral 60 ml IV Total 1955 ml 173 ml 570 ml 750 ml Tube Feeding 2769 ml 108 ml 483 ml 674 ml Other 120 ml 120 ml 50 ml Output Urine Total 1250 ml 250 ml Tube Feeding Residual Discard 0 ml # Voids 2 # Bowel Movements 2 1 1 Result Diagram: 08/30/16 0910 08/30/16 0910 Objective Remarks GENERAL: Pleasant 46 yo AA male, chronically ill-appearing male in no apparent distress. Can nod yes/no to questions. SKIN: Left upper back and medial antecubital area with skin tears. Wounds appear clean. Dried wound on the left wrist. CARDIOVASCULAR: Normal rate and regular rhythm without murmurs, gallops, or rubs. RESPIRATORY: Poor respiratory effort. Breath sounds equal and clear to auscultation bilaterally. GASTROINTESTINAL: Abdomen soft, non-distended. Normal active bowel sounds MUSCULOSKELETAL: Extremities without some evidence of contractures. NEURO: Patient is aphasic, can nod yes or no to questions. Follow commands. Generalized weakness. Right hemiparesis from previous stroke. PSYCH: Flattened affect. 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 According to the patient's , he has been having a declining course. Sepsis Appears to be improving after Rocephin started. Initially thought to be due to UTI but urine culture neg. On arrival patient was tachycardic with heart rate 131, rectal temperature 99.8. Labs remarkable for WBC 14.9 K, elevated BUN 28, lactic acid 1.7. CXR images reviewed, unremarkable. One out of 4 blood cultures with staph epidermidis. ?Contaminant. Repeat blood cultures unremarkable. Brain CT and MRI unremarkable. Status post LP. CSF culture negative. Pt with low grade fever and elevated HR 3/3. Resolved. - Sepsis improving on antibiotics. Discussed with Dr. Reyes. Skin lesions could have been the source. - ceftriaxone and vanco discontinued per ID. Monitor off of antibiotics. - urine culture growing yeast. On IV fluconazole. Hold statin. Patient with persistent sinus tachycardia. EKG ordered and reviewed with sinus tachycardia. Will start atenolol 12.5 mg po daily if BP permits. Monitor VS. Monitor on telemetry. Neuro-Behcet No new changes on imaging. Patient followed by neurology. Aphasic at baseline. - If neuro status worsening, advised starting steroid. Follow up with neuro. - Consult OT, PT. Will possibly need placement. Case management assistance appreciated. Mood disorder Patient having crying outbursts. He has done that in the past. Could be related to depression. Psychiatry consult appreciated. - fluoxetine started per psych. Mood has been stable. Decreased oral intake and dysphagia Speech therapy following. S/P barium swallow. Patient with severe dysphagia. GI placed PEG. - Continue diet per speech along with tube feeding. Tolerating 3/6. - free water 250 cc every 6 hours. Left upper back and medial antecubital skin tear Etiology unclear. Family reports that it started as a blister. S/p antibiotics. - Continue dressing changes per RN. Dressings changed 08/25. Diabetes Glucose well controlled 08/29. - monitor Accu-Cheks BID and cover with low-dose SSI. Cephalic vein thrombus Noted on LUE US. - hold off on full anticoagulation as superficial vein. Renal insufficiency Likely prerenal. Renal ultrasound with increased echotexture. - IVFs and follow BMP. - check urine sodium and creatinine. UTI Urine culture growing Daphney species. - Continue fluconazole started 08/28. DVT Prophylaxis: Lovenox, teds/SCDs. Discharge Planning DC to SNF when bed available. Case management assistance appreciated. Discussed with the patient, nurse. Problem Qualifiers (1) UTI (urinary tract infection): Qualified Code: N39.0 - Urinary tract infection without hematuria, site unspecified Brittany Garner MD Sep 03, 2016 15:48
[2016-09-04 00:30] VITALS: BP 131/84; PULSE 96; RESP 20; TEMP 97.1; O2SAT 98
[2016-09-04] MEDS: SODIUM CHLOR 0.9% 1000 ML INJ 1,000 ML IV SCH ×2 (03:37→13:58)
[2016-09-04 04:30] VITALS: BP 131/81; PULSE 77; RESP 20; TEMP 95.5; O2SAT 99
[2016-09-04] MEDS: INSULIN ASPART SUPPLEMENTAL SCALE SQ SCH ×4 (05:47→21:00)
[2016-09-04 08:04] VITALS: BP 126/83; PULSE 100; RESP 18; TEMP 98.7; O2SAT 98
[2016-09-04] MEDS: FLUoxetine HCL 10 MG CAP PO SCH (08:07)
[2016-09-04] MEDS: FAMOTIDINE 20 MG TAB PO SCH ×2 (08:07→22:17)
[2016-09-04] MEDS: ENOXAPARIN SODIUM 40 MG/0.4 ML SYRINGE SQ SCH (08:07)
[2016-09-04] MEDS: ATENOLOL 25 MG TAB PO SCH (08:07)
[2016-09-04] MEDS: SODIUM CHLORIDE 0.9% FLUSH 5 ML FLUSH FLUSH SCH ×2 (08:07→21:00)
[2016-09-04 12:04] VITALS: BP 125/84; PULSE 93; RESP 18; TEMP 98.5; O2SAT 99
[2016-09-04] MEDS: FLUCONAZOLE 100 MG PREMIX BAG 50 ML IV SCH (12:15)
--- NOTE | 2016-09-04 14:48 | HHI.PR ---
Subjective Remarks In bed, doesn't appear in acute distress. Objective Vitals Vital Signs Date Time Temp Pulse Resp B/P Pulse Ox O2 Delivery O2 Flow Rate FiO2 09/04/16 12:04 98.5 93 18 125/84 99 09/04/16 08:04 98.7 100 18 126/83 98 09/04/16 04:30 95.5 77 20 131/81 99 09/04/16 00:30 97.1 96 20 131/84 98 09/03/16 21:00 98.9 09/03/16 20:00 100.2 72 20 137/84 98 09/03/16 20:00 100.2 72 20 137/94 98 09/03/16 16:36 98.9 107 18 130/87 96 I/O 09/03/16 09/03/16 09/03/16 09/04/16 09/04/16 09/04/16 07:00 15:00 23:00 07:00 15:00 23:00 Intake Total 1173 ml 1714 ml 0 ml 2516 ml 2305 ml Output Total 800 ml 1000.0 ml 450 ml Balance 1173 ml 914 ml -1000.0 ml 2066 ml 2305 ml Intake Oral 240 ml 0 ml 300 ml IV Total 570 ml 750 ml 1066 ml 679 ml Tube Feeding 483 ml 674 ml 750 ml 1626 ml Tube Irrigant 400 ml Other 120 ml 50 ml Output Urine Total 800 ml 1000 ml 450 ml Tube Feeding Residual Discard 0 ml 0 ml # Bowel Movements 1 Objective Remarks GENERAL: Pleasant 46 yo AA male, chronically ill-appearing male in no apparent distress. Can nod yes/no to questions. SKIN: Left upper back and medial antecubital area with skin tears. Wounds appear clean. Dried wound on the left wrist. CARDIOVASCULAR: Normal rate and regular rhythm without murmurs, gallops, or rubs. RESPIRATORY: Poor respiratory effort. Breath sounds equal and clear to auscultation bilaterally. GASTROINTESTINAL: Abdomen soft, non-distended. Normal active bowel sounds MUSCULOSKELETAL: Extremities without some evidence of contractures. NEURO: Patient is aphasic, can nod yes or no to questions. Follow commands. Generalized weakness. Right hemiparesis from previous stroke. PSYCH: Flattened affect. 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 According to the patient's , he has been having a declining course. Sepsis Appears to be improving after Rocephin started. Initially thought to be due to UTI but urine culture neg. On arrival patient was tachycardic with heart rate 131, rectal temperature 99.8. Labs remarkable for WBC 14.9 K, elevated BUN 28, lactic acid 1.7. CXR images reviewed, unremarkable. One out of 4 blood cultures with staph epidermidis. ?Contaminant. Repeat blood cultures unremarkable. Brain CT and MRI unremarkable. Status post LP. CSF culture negative. Pt with low grade fever and elevated HR 3/3. Resolved. - Sepsis improving on antibiotics. Discussed with Dr. Reyes. Skin lesions could have been the source. - ceftriaxone and vanco discontinued per ID. Monitor off of antibiotics. - urine culture growing yeast. On IV fluconazole. Hold statin. Patient with persistent sinus tachycardia. EKG ordered and reviewed with sinus tachycardia. Will start atenolol 12.5 mg po daily if BP permits. Monitor VS. Monitor on telemetry. Neuro-Behcet No new changes on imaging. Patient followed by neurology. Aphasic at baseline. - If neuro status worsening, advised starting steroid. Follow up with neuro. - Consult OT, PT. Will possibly need placement. Case management assistance appreciated. Mood disorder Patient having crying outbursts. He has done that in the past. Could be related to depression. Psychiatry consult appreciated. - fluoxetine started per psych. Mood has been stable. Decreased oral intake and dysphagia Speech therapy following. S/P barium swallow. Patient with severe dysphagia. GI placed PEG. - Continue diet per speech along with tube feeding. Tolerating 3/6. - free water 250 cc every 6 hours. Left upper back and medial antecubital skin tear Etiology unclear. Family reports that it started as a blister. S/p antibiotics. - Continue dressing changes per RN. Dressings changed 08/25. Diabetes Glucose well controlled 08/29. - monitor Accu-Cheks BID and cover with low-dose SSI. Cephalic vein thrombus Noted on LUE US. - hold off on full anticoagulation as superficial vein. Renal insufficiency Likely prerenal. Renal ultrasound with increased echotexture. - IVFs and follow BMP. - check urine sodium and creatinine. UTI Urine culture growing Daphney species. - Continue fluconazole started 08/28. DVT Prophylaxis: Lovenox, teds/SCDs. Discharge Planning DC to SNF when bed available. Case management assistance appreciated. Discussed with the patient, nurse. Problem Qualifiers (1) UTI (urinary tract infection): Qualified Code: N39.0 - Urinary tract infection without hematuria, site unspecified Brittany Garner MD Sep 04, 2016 14:48
[2016-09-04 16:00] VITALS: BP 109/74; PULSE 98; RESP 18; TEMP 97.9; O2SAT 98
[2016-09-04 20:00] VITALS: BP 138/82; PULSE 107; RESP 22; TEMP 96.3; O2SAT 97
[2016-09-05] VITALS: BP 132/82; PULSE 89; RESP 20; TEMP 96.8; O2SAT 98
[2016-09-05 04:00] VITALS: BP 122/80; PULSE 97; RESP 20; TEMP 101.5; O2SAT 96
[2016-09-05] MEDS: ACETAMINOPHEN 325 MG TAB PO PRN ×2 (05:32→18:45)
[2016-09-05] MEDS: INSULIN ASPART SUPPLEMENTAL SCALE SQ SCH ×4 (06:14→22:19)
[2016-09-05 08:41] VITALS: BP 128/83; PULSE 112; RESP 19; TEMP 100; O2SAT 97
[2016-09-05] MEDS: SODIUM CHLORIDE 0.9% FLUSH 5 ML FLUSH FLUSH SCH ×2 (09:00→20:11)
[2016-09-05] MEDS: FLUoxetine HCL 10 MG CAP PO SCH (09:12)
[2016-09-05] MEDS: ATENOLOL 25 MG TAB PO SCH (09:14)
[2016-09-05] MEDS: ENOXAPARIN SODIUM 40 MG/0.4 ML SYRINGE SQ SCH (09:15)
[2016-09-05] MEDS: FAMOTIDINE 20 MG TAB PO SCH ×2 (09:16→20:10)
[2016-09-05] MEDS: FLUCONAZOLE 100 MG PREMIX BAG 50 ML IV SCH (12:31)
--- NOTE | 2016-09-05 12:45 | HHI.PR ---
Subjective Remarks Sleepy. In no distress. No complaints. Objective Vitals Vital Signs Date Time Temp Pulse Resp B/P Pulse Ox O2 Delivery O2 Flow Rate FiO2 09/05/16 08:41 100.0 112 19 128/83 97 09/05/16 04:00 101.5 97 20 122/80 96 09/05/16 00:00 96.8 89 20 132/82 98 09/04/16 20:00 96.3 107 22 138/82 97 09/04/16 16:00 97.9 98 18 109/74 98 I/O 09/04/16 09/04/16 09/04/16 09/05/16 09/05/16 09/05/16 07:00 15:00 23:00 07:00 15:00 23:00 Intake Total 2516 ml 2365 ml 0 ml Output Total 450 ml 1200 ml 1 ml Balance 2066 ml 1165 ml 0 ml -1 ml Intake Oral 300 ml 60 ml 0 ml IV Total 1066 ml 679 ml Tube Feeding 750 ml 1626 ml Tube Irrigant 400 ml Output Urine Total 450 ml 1200 ml Stool Total 1 ml # Voids 1 3 1 # Bowel Movements 1 Imaging Last Impressions Renal Ultrasound 08/28/16 0000 Signed Impressions: Service Date/Time: Sunday, August 28, 2016 20:03 - CONCLUSION: Mild increased echotexture of both kidneys. Baldev Vu MD Chest X-Ray 08/26/16 0000 Signed Impressions: Service Date/Time: Friday, August 26, 2016 11:19 - CONCLUSION: No acute disease. Conrad Stewart MD FACR Upper Extremity Ultrasound 08/19/16 0000 Signed Impressions: Service Date/Time: Friday, August 19, 2016 22:32 - CONCLUSION: Left cephalic vein occlusive thrombus noted in the antecubital fossa. Baldev Vu MD Lumbar Puncture Fluoroscopy 08/17/16 0000 Signed Impressions: Service Date/Time: Wednesday, August 17, 2016 12:26 - CONCLUSION: Uncomplicated fluoroscopically guided lumbar puncture. Vishal Beckford Jr., MD Brain MRI 08/17/16 0000 Signed Impressions: Service Date/Time: Wednesday, August 17, 2016 13:28 - CONCLUSION: Remote long-standing areas of abnormality in the brainstem and middle cerebellar peduncle consistent with remote infarcts or contusion. No acute intracranial abnormality. Chacho Bright MD Abdomen X-Ray 08/17/16 0000 Signed Impressions: Service Date/Time: Wednesday, August 17, 2016 13:02 - CONCLUSION: No evidence of obstruction. No MRI incompatible foreign body is identified. Chacho Bright MD Head CT 08/16/16 0000 Signed Impressions: Service Date/Time: Tuesday, August 16, 2016 09:55 - CONCLUSION: Chronic ischemic changes left frontal lobe possibly from evidence of previous ventriculostomy placement, unchanged. No acute intracranial abnormality. Gen Potter MD Modified Barium Swallow 08/15/16 0000 Signed Impressions: Service Date/Time: Monday, August 15, 2016 00:00 - CONCLUSION: See report above and speech pathology report Chacho Bright MD Objective Remarks GENERAL: Pleasant 46 yo AA male, chronically ill-appearing male in no apparent distress. Can nod yes/no to questions. SKIN: Left upper back and medial antecubital area with skin tears. Wounds appear clean. Dried wound on the left wrist. CARDIOVASCULAR: Normal rate and regular rhythm without murmurs, gallops, or rubs. RESPIRATORY: Poor respiratory effort. Breath sounds equal and clear to auscultation bilaterally. GASTROINTESTINAL: Abdomen soft, non-distended. Normal active bowel sounds MUSCULOSKELETAL: Extremities without some evidence of contractures. NEURO: Patient is aphasic, can nod yes or no to questions. Follow commands. Generalized weakness. Right hemiparesis from previous stroke. PSYCH: Flattened affect. 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 According to the patient's , he has been having a declining course. Sepsis Appears to be improving after Rocephin started. Initially thought to be due to UTI but urine culture neg. On arrival patient was tachycardic with heart rate 131, rectal temperature 99.8. Labs remarkable for WBC 14.9 K, elevated BUN 28, lactic acid 1.7. CXR images reviewed, unremarkable. One out of 4 blood cultures with staph epidermidis. ?Contaminant. Repeat blood cultures unremarkable. Brain CT and MRI unremarkable. Status post LP. CSF culture negative. Pt with low grade fever and elevated HR 3/. Resolved. - Sepsis improving on antibiotics. Discussed with Dr. Reyes. Skin lesions could have been the source. - ceftriaxone and vanco discontinued per ID. Monitor off of antibiotics. - urine culture growing yeast. On IV fluconazole. Hold statin. Patient with persistent sinus tachycardia. EKG ordered and reviewed with sinus tachycardia. Will start atenolol 12.5 mg po daily if BP permits. Monitor VS. Monitor on telemetry. Neuro-Behcet No new changes on imaging. Patient followed by neurology. Aphasic at baseline. - If neuro status worsening, advised starting steroid. Follow up with neuro. - Consult OT, PT. Will possibly need placement. Case management assistance appreciated. Mood disorder Patient having crying outbursts. He has done that in the past. Could be related to depression. Psychiatry consult appreciated. - fluoxetine started per psych. Mood has been stable. Decreased oral intake and dysphagia Speech therapy following. S/P barium swallow. Patient with severe dysphagia. GI placed PEG. - Continue diet per speech along with tube feeding. Tolerating 08/29. - free water 250 cc every 6 hours. Left upper back and medial antecubital skin tear Etiology unclear. Family reports that it started as a blister. S/p antibiotics. - Continue dressing changes per RN. Dressings changed 3. Diabetes Glucose well controlled 08/29. - monitor Accu-Cheks BID and cover with low-dose SSI. Cephalic vein thrombus Noted on LUE US. - hold off on full anticoagulation as superficial vein. Renal insufficiency Likely prerenal. Renal ultrasound with increased echotexture. - IVFs and follow BMP. - check urine sodium and creatinine. UTI Urine culture growing Daphney species. - Continue fluconazole started 08/28. DVT Prophylaxis: Lovenox, teds/SCDs. Discharge Planning DC to SNF when bed available. Case management assistance appreciated. Discussed with the patient, nurse. Problem Qualifiers (1) UTI (urinary tract infection): Qualified Code: N39.0 - Urinary tract infection without hematuria, site unspecified Brittany Garner MD Sep 05, 2016 12:45
[2016-09-05 12:47] VITALS: BP 114/80; PULSE 97; RESP 17; TEMP 99.2; O2SAT 99
[2016-09-05] MEDS: SODIUM CHLOR 0.9% 1000 ML INJ 1,000 ML IV SCH ×2 (14:05→18:47)
[2016-09-05 16:49] VITALS: BP 120/79; PULSE 114; RESP 20; TEMP 101.2; O2SAT 99
[2016-09-05 20:16] VITALS: BP 102/71; PULSE 106; RESP 16; TEMP 99.6; O2SAT 98
[2016-09-06] VITALS (7 sets, daily range): BP systolic 104–140; BP diastolic 69–95; PULSE 105–122; RESP 18–20; TEMP 98.2–103.5; O2SAT 95–98
[2016-09-06] MEDS: SODIUM CHLOR 0.9% 1000 ML INJ 1,000 ML IV SCH ×2 (05:47→13:55)
[2016-09-06] MEDS: INSULIN ASPART SUPPLEMENTAL SCALE SQ SCH ×4 (06:00→21:11)
[2016-09-06] MEDS: FAMOTIDINE 20 MG TAB PO SCH ×2 (09:54→20:09)
[2016-09-06] MEDS: FLUoxetine HCL 10 MG CAP PO SCH (09:54)
[2016-09-06] MEDS: ATENOLOL 25 MG TAB PO SCH (09:54)
[2016-09-06] MEDS: SODIUM CHLORIDE 0.9% FLUSH 5 ML FLUSH FLUSH SCH ×2 (09:55→20:10)
[2016-09-06] MEDS: ENOXAPARIN SODIUM 40 MG/0.4 ML SYRINGE SQ SCH (09:55)
--- NOTE | 2016-09-06 13:41 | HHI.HCPN ---
Reason for visit a. To assist with evaluation and management of symptoms including: debility , dysphagia and depression/tearful outbursts. b. To assist medical decision maker(s) with: better understanding of current medical conditions; weighing benefits/burdens of medical treatment options; making medical treatment decisions. . Subjective/Interval History Patient seen in his room, awake and alert alert. Attempting to communicate by mouthing some words and noting head to yes/no questions. Patient denies any shortness of breath, nausea/vomiting, pain or discomfort. No family at bedside. Patient febrile with max temp 102.5 today, stable BP. Remains tachycardic with HR in the low 110's. Tolerating her room air. No new lab or imaging since 08/30/16. TC to patient's significant other Shazia. Unable to leave voice mail as it is full. There is a note in the white board indicating that Marina will be in [place] for 2 weeks. Unknown when she is expected to return. Palliative care has made several attempts at contacting Shazia, letter sent last week. Ongoing discharge planning, however, difficult dispo. SNF has been denied by multiple agencies as patient appears half-way care and not skilled. Family unable to care for him at home as per previous records. Palliative care will continue to f /u for support. . Family/friend interactions See interval note. . Advance Directives Living Will: Never completed Health Care Surrogate: Never completed Durable Power of Social Science Manager: Never completed Advance Directive Specifics Health Care Surrogate(s): No living will or healthcare surrogate designation found in medical records. Tianalexis Harrell acting as healthcare proxy. Unclear at this time if they are legally . . Documented care wishes: No living well documented. Significant change in goals: Palliative care has been unable to discuss goals of care or code status with pt' s significant other. many attempts at contacting her including multiple telephone messages and letter. . Objective Vital Signs Date Time Temp Pulse Resp B/P Pulse Ox O2 Delivery O2 Flow Rate FiO2 09/06/16 12:29 102.5 111 19 134/84 96 09/06/16 08:26 100.8 119 20 120/83 97 09/06/16 05:02 99.8 112 18 125/76 95 09/06/16 00:21 98.2 105 18 140/95 98 09/05/16 20:16 99.6 106 16 102/71 98 09/05/16 16:49 101.2 114 20 120/79 99 Intake & Output 09/06/16 09/06/16 07:00 19:00 Intake Total 1813 ml Output Total 0 ml Balance 1813 ml IV Total 775 ml Tube Feeding 788 ml Other 250 ml Tube Feeding Residual Discard 0 ml # Voids 4 2 # Bowel Movements 0 Physical Exam CONSTITUTIONAL/GENERAL: This is a thin patient in no acute distress, aphasic, limited communication. Nodding head yes/no to questions. Mouthing some words. TUBES/LINES/DRAINS: PIV's, PEG tube. SKIN: No jaundice. Skin temperature appropriate. Not diaphoretic. HEAD: Atraumatic. Normocephalic. EYES: Pupils equal and round and reactive. ENT: Hearing grossly normal. Nose without bleeding or purulent drainage. Throat without visible erythema or exudates. Moderate amount of oral clear secretions. NECK: Trachea midline. Supple, nontender. CARDIOVASCULAR: Regular rate and rhythm without murmurs, gallops, or rubs. No JVD. Peripheral pulses symmetric. RESPIRATORY/CHEST: Symmetric, unlabored respirations. Clear breath sounds bilaterally. GASTROINTESTINAL: Abdomen soft, non-tender, nondistended. PEG tube in place, same cover with dressing. No guarding. Bowel sounds present. GENITOURINARY: Without palpable bladder distension. MUSCULOSKELETAL: Extremities without clubbing, cyanosis, or edema. Muscle wasting noted. NEUROLOGICAL: Awake and alert. Following some commands. Right-sided hemiparesis. Weak hand grasp on the left. PSYCHIATRIC: Appears calm. . Diagnostic Tests Procedures * 08/19/16 -PEG tube placement * 08/17/16- lumbar puncture . Assessment and Plan Disease Oriented Problem List: (1) Neurologic type Behcet's syndrome (2) Sepsis (3) Impaired mobility and activities of daily living Symptom Scale: (1) Debility 0-10 Scale: Unable to quantify Comment: Progressive secondary to neuro-Behcet's syndrome, CVA. Now bed bound. (2) Depression 0-10 Scale: Unable to quantify Comment: History of depression, on Celexa at home. Crying outburst. Pertinent Non-Medical Issues Psychosocial: Reported as . Unknown if he has any children. Spiritual: No spiritual affiliations. Legal: No living will or advanced directives found in medical records. Thenesha Small presented as and has been acting as healthcare proxy. Ethical issues impacting care: No living will or advanced directives found in medical records. Patricia Harrell presented as and has been acting as healthcare proxy. . Important Contacts Patricia Harrell -reported as . [phone]. . Prognosis Mr. 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 Patient presented to the ED on 08/13/16 via EMS were reports of decreased oral intake for the prior 2-3 days and skin tear to left upper extremity. He was admitted for sepsis. Patient is at high risk for further complications, continue decline and . His diagnosis of neuro- Behcet's syndrome was done at [facility], pending medical records for confirmation. Unknown if prognosis was provided. Evidence shows high mortality in neuro-Behcet's syndrome of about 25% in the first year after neurological manifestations. . Plan * CODE STATUS: Unclear at this time. Several attempts to contact . Patient listed as FULL CODE in prior admissions. * HEALTHCARE DECISION-MAKER: No living will or healthcare surrogate designation found in medical records. Patricia Harrell acting as healthcare proxy. Unclear at this time if they are legally . * GOALS OF CARE: Palliative care has been unable to discuss goals of care or code status with pt's significant other. Many attempts at contacting her including multiple telephone messages and letter. * SYMPTOMS: == Depression/crying-tearful outbursts. Seen by psych on 08/23, currently on SSRI. Much controlled. = Debility, likely to continue to worsen. Unclear if patient would benefit from rehabilitation at discharge. PT/OT following. * Palliative care contact information has been provided to patient's via telephone voicemail. Several attempts at contacting family. Sending letter to patient's requesting to contact palliative care. * Palliative care will continue to follow-up with this patient and family as needed for clarifications of goals of care and support during this difficult time. . Time Spent Total Floor Time (mins): 26 (Total time to include review of medical records, physical exam, and telephone call to patient's significant other. ) >50% Counseling/Coord of Care: Yes Attestation To help prompt me to consider important information that might be impacting today's encounter and assessment, information from prior notes written by myself or my colleagues may have been "brought forward" into today's note. My signature on this note, however, is an attestation that I personally performed the exam, history, and/or decision-making noted today, and, unless otherwise indicated, the interactions with patient, family, and staff as well as the review of records all occurred today. I also attest that the listed assessment and stated plan reflect my best clinical judgment today based on the combination of historical information, prior notes, and today's exam/ interactions. When time spent is documented, it refers only to time spent today by the signer, or if indicated, combined time spent today by collaborating physician/nurse practitioner. Esther Varma Sep 06, 2016 13:40
[2016-09-06] MEDS: ACETAMINOPHEN 325 MG TAB PO PRN (13:49)
[2016-09-06] MEDS: FLUCONAZOLE 100 MG PREMIX BAG 50 ML IV SCH (13:49)
--- NOTE | 2016-09-06 18:09 | HHI.PR ---
Subjective Remarks Patient appears in nad. When asked he has no complaints. He is noted with spikes of fevers. Objective Vitals Vital Signs Date Time Temp Pulse Resp B/P Pulse Ox O2 Delivery O2 Flow Rate FiO2 09/06/16 16:25 101.4 108 18 104/69 98 09/06/16 12:29 102.5 111 19 134/84 96 09/06/16 08:26 100.8 119 20 120/83 97 09/06/16 05:02 99.8 112 18 125/76 95 09/06/16 00:21 98.2 105 18 140/95 98 09/05/16 20:16 99.6 106 16 102/71 98 I/O 09/05/16 09/05/16 09/05/16 09/06/16 09/06/16 09/06/16 06:59 14:59 22:59 06:59 14:59 22:59 Intake Total 1747 ml 1813 ml Output Total 1 ml 0 ml Balance -1 ml 1747 ml 1813 ml IV Total 675 ml 775 ml Tube Feeding 772 ml 788 ml Other 300 ml 250 ml Stool Total 1 ml Tube Feeding Residual Discard 0 ml # Voids 3 1 2 4 2 # Bowel Movements 2 0 Imaging Last Impressions Renal Ultrasound 08/28/16 0000 Signed Impressions: Service Date/Time: Sunday, August 28, 2016 20:03 - CONCLUSION: Mild increased echotexture of both kidneys. Baldev Vu MD Chest X-Ray 08/26/16 0000 Signed Impressions: Service Date/Time: Friday, August 26, 2016 11:19 - CONCLUSION: No acute disease. Conrad Stewart MD FACR Upper Extremity Ultrasound 08/19/16 0000 Signed Impressions: Service Date/Time: Friday, August 19, 2016 22:32 - CONCLUSION: Left cephalic vein occlusive thrombus noted in the antecubital fossa. Baldev Vu MD Lumbar Puncture Fluoroscopy 08/17/16 0000 Signed Impressions: Service Date/Time: Wednesday, August 17, 2016 12:26 - CONCLUSION: Uncomplicated fluoroscopically guided lumbar puncture. Vishal Beckford Jr., MD Brain MRI 08/17/16 0000 Signed Impressions: Service Date/Time: Wednesday, August 17, 2016 13:28 - CONCLUSION: Remote long-standing areas of abnormality in the brainstem and middle cerebellar peduncle consistent with remote infarcts or contusion. No acute intracranial abnormality. Chacho Bright MD Abdomen X-Ray 08/17/16 0000 Signed Impressions: Service Date/Time: Wednesday, August 17, 2016 13:02 - CONCLUSION: No evidence of obstruction. No MRI incompatible foreign body is identified. Chacho Bright MD Head CT 08/16/16 0000 Signed Impressions: Service Date/Time: Tuesday, August 16, 2016 09:55 - CONCLUSION: Chronic ischemic changes left frontal lobe possibly from evidence of previous ventriculostomy placement, unchanged. No acute intracranial abnormality. Gen Potter MD Modified Barium Swallow 08/15/16 0000 Signed Impressions: Service Date/Time: Monday, August 15, 2016 00:00 - CONCLUSION: See report above and speech pathology report Chacho Bright MD Objective Remarks GENERAL: Pleasant 46 yo AA male, chronically ill-appearing male in no apparent distress. Can nod yes/no to questions. SKIN: Left upper back and medial antecubital area with skin tears. Wounds appear clean. Dried wound on the left wrist. CARDIOVASCULAR: Normal rate and regular rhythm without murmurs, gallops, or rubs. RESPIRATORY: Poor respiratory effort. Breath sounds equal and clear to auscultation bilaterally. GASTROINTESTINAL: Abdomen soft, non-distended. Normal active bowel sounds MUSCULOSKELETAL: Extremities without some evidence of contractures. NEURO: Patient is aphasic, can nod yes or no to questions. Follow commands. Generalized weakness. Right hemiparesis from previous stroke. PSYCH: Flattened affect. A/P Problem List: (1) UTI (urinary tract infection) ICD Code: N39.0 Status: Resolved (2) Sepsis ICD Code: A41.9 Status: Acute (3) Altered mental status ICD Code: R41.82 Status: Resolved (4) 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 (5) Impaired mobility and activities of daily living ICD Code: Z74.09 Status: Acute Assessment and Plan 46-year-old male with history of neuro-Behcet's diagnosed at [place], left frontal CVA, bedbound, nonverbal, mural thrombus, history of brain abscess, meningitis, hypertension, diabetes, presents for decreased oral intake 23 days prior to admission, and skin tear at the left upper extremity and upper back. According to the patient's , he has been having a declining course. Sepsis Appears to be improving after Rocephin started. Initially thought to be due to UTI but urine culture neg. On arrival patient was tachycardic with heart rate 131, rectal temperature 99.8. Labs remarkable for WBC 14.9 K, elevated BUN 28, lactic acid 1.7. CXR images reviewed, unremarkable. One out of 4 blood cultures with staph epidermidis. ?Contaminant. Repeat blood cultures unremarkable. Brain CT and MRI unremarkable. Status post LP. CSF culture negative. Pt with low grade fever and elevated HR 3/3. Resolved. - Sepsis improving on antibiotics. Discussed with Dr. Reyes. Skin lesions could have been the source. - ceftriaxone and vanco discontinued per ID. Monitor off of antibiotics. - urine culture growing yeast. On IV fluconazole. Hold statin. - Noted with spikes of fevers 101, patient has no complaints no leucocytosis. Patient is tachycardic. Will repeat blood cultures, will check LA, UA and CXR. Will reconsult ID for persistent fevers, meets sepsis criteria Patient with persistent sinus tachycardia. EKG ordered and reviewed with sinus tachycardia. Will start atenolol 12.5 mg po daily if BP permits. Monitor VS. Monitor on telemetry. Neuro-Behcet No new changes on imaging. Patient followed by neurology. Aphasic at baseline. - If neuro status worsening, advised starting steroid. Follow up with neuro. - Consult OT, PT. Will possibly need placement. Case management assistance appreciated. Mood disorder Patient having crying outbursts. He has done that in the past. Could be related to depression. Psychiatry consult appreciated. - fluoxetine started per psych. Mood has been stable. Decreased oral intake and dysphagia Speech therapy following. S/P barium swallow. Patient with severe dysphagia. GI placed PEG. - Continue diet per speech along with tube feeding. Tolerating 08/29. - free water 250 cc every 6 hours. Left upper back and medial antecubital skin tear Etiology unclear. Family reports that it started as a blister. S/p antibiotics. - Continue dressing changes per RN. Dressings changed 3. Diabetes Glucose well controlled 08/29. - monitor Accu-Cheks BID and cover with low-dose SSI. Cephalic vein thrombus Noted on LUE US. - hold off on full anticoagulation as superficial vein. Renal insufficiency Likely prerenal. Renal ultrasound with increased echotexture. - IVFs and follow BMP. - check urine sodium and creatinine. UTI Urine culture growing Daphney species. - Continue fluconazole started 08/28. DVT Prophylaxis: Lovenox, TEDs/SCDs. Discharge Planning DC to SNF when bed available. Case management assistance appreciated. Discussed with the patient, nurse. Problem Qualifiers (1) UTI (urinary tract infection): Qualified Code: N39.0 - Urinary tract infection without hematuria, site unspecified Brittany Garner MD Sep 06, 2016 18:09
[2016-09-06 19:21] LABS: AUTOMATED NEUTROPHIL # 10.8 TH/MM3 (1.8-7.7); BASOPHIL % 0.2 % (0.0-2.0); EOSINOPHIL % 0.1 % (0.0-4.0); HEMOGLOBIN 11.3 GM/DL (13.0-17.0); LYMPH % 12.3 % (9.0-44.0); LYMPHOCYTE # 1.7 TH/MM3 (1.0-4.8); MEAN CELL VOLUME 86.5 FL (80.0-100.0); MEAN CORPUSCULAR HEMOGLOBIN 27.8 PG (27.0-34.0); MEAN CORPUSCULAR HGB CONC 32.2 % (32.0-36.0); MONO % 6.8 % (0.0-8.0); MONOCYTE # 0.9 TH/MM3 (0-0.9); NEUT % 80.6 % (16.0-70.0); PLATELET COUNT 409 TH/MM3 (150-450); RED BLOOD COUNT 4.05 MIL/MM3 (4.50-5.90); WHITE BLOOD COUNT 13.4 TH/MM3 (4.0-11.0)
--- NOTE | 2016-09-06 19:32 | RADRPT ---
EXAM DATE/TIME: 09/06/2016 17:34 [facility] COMPARISON: CHEST SINGLE AP, August 26, 2016, 11:19. INDICATIONS : Fever. MEDICAL HISTORY : Hypercholesterolemia. Hypertension diabetes SURGICAL HISTORY : None. ENCOUNTER: Subsequent ACUITY: 3 weeks PAIN SCORE: Non-responsive. LOCATION: Bilateral chest FINDINGS: A single AP semierect view of the chest was obtained. There is mild motion artifact. There is mild zazueta zy opacity at the lung bases with no focal consolidation or effusion. The heart size is within normal limits. The bony thorax is intact. CONCLUSION: Mild motion artifact with mild hazy opacity at the lung bases no definite consolidation. Mikie Franco MD on September 06, 2016 at 19:30 Board Certified Radiologist. This report was verified electronically.
[2016-09-06 19:34] LABS: BICARBONATE 28.3 MEQ/L (21.0-32.0); CALCIUM 9.3 MG/DL (8.5-10.1); CREATININE 1.1 MG/DL (0.60-1.30)
[2016-09-06] MEDS: ACETAMINOPHEN 650 MG SUPP RECTAL PRN (20:06)
[2016-09-06] MEDS: PIPERACIL-TAZO 4.5 GM PREMIX 100 ML IV SCH (21:27)
[2016-09-07 00:13] LABS: BILIRUBIN, URINE NEG (NEG); BLOOD, URINE TRACE (NEG); GLUCOSE,URINE NEG (NEG); KETONE, URINE NEG (NEG); NITRITE,URINE NEG (NEG); URINE COLOR COLORLESS (YELLW/STRAW); URINE LEUKOCYTE ESTERASE NEG (NEG)
[2016-09-07 00:29] VITALS: BP 110/76; PULSE 103; RESP 18; TEMP 100.8; O2SAT 99
[2016-09-07] MEDS: PIPERACIL-TAZO 4.5 GM PREMIX 100 ML IV SCH ×2 (01:49→08:23)
[2016-09-07] MEDS: SODIUM CHLOR 0.9% 1000 ML INJ 1,000 ML IV SCH (01:50)
[2016-09-07 04:06] VITALS: BP 111/76; PULSE 96; RESP 16; TEMP 98.6; O2SAT 97
[2016-09-07] MEDS: INSULIN ASPART SUPPLEMENTAL SCALE SQ SCH ×4 (06:00→21:00)
[2016-09-07 08:00] VITALS: BP 111/71; PULSE 101; RESP 17; TEMP 97.2; O2SAT 97
[2016-09-07] MEDS: SODIUM CHLORIDE 0.9% FLUSH 5 ML FLUSH FLUSH SCH ×2 (08:23→21:00)
[2016-09-07] MEDS: ENOXAPARIN SODIUM 40 MG/0.4 ML SYRINGE SQ SCH (08:24)
[2016-09-07] MEDS: FAMOTIDINE 20 MG TAB PO SCH (08:24)
[2016-09-07] MEDS: ATENOLOL 25 MG TAB PO SCH (08:24)
[2016-09-07] MEDS: FLUoxetine HCL 10 MG CAP PO SCH (08:24)
[2016-09-07 12:00] VITALS: BP 100/63; PULSE 86; RESP 17; TEMP 96.8; O2SAT 99
[2016-09-07] MEDS: VANCOMYCIN INJ 1,250 MG in SODIUM CHLOR 0.9% 250 ML INJ 250 ML IV SCH (12:00)
--- NOTE | 2016-09-07 12:33 | HHI.PR ---
Subjective Remarks Patient with spikes of fevers overnight. On antibiotics. He also has a sacral pressure related injury. Will culture wound. Will consult wound care. Patient nods with yes/no. Denies pain, n/v/d/c. no cough. Objective Vitals Vital Signs Date Time Temp Pulse Resp B/P Pulse Ox O2 Delivery O2 Flow Rate FiO2 09/07/16 08:00 97.2 101 17 111/71 97 09/07/16 04:06 98.6 96 16 111/76 97 09/07/16 00:29 100.8 103 18 110/76 99 09/06/16 21:00 102.2 114 20 96 09/06/16 19:56 103.5 122 20 120/82 97 09/06/16 16:25 101.4 108 18 104/69 98 I/O 09/06/16 09/06/16 09/06/16 09/07/16 09/07/16 09/07/16 07:00 15:00 23:00 07:00 15:00 23:00 Intake Total 1813 ml 900 ml 1878 ml Output Total 0 ml Balance 1813 ml 900 ml 1878 ml IV Total 775 ml 971 ml Tube Feeding 788 ml 900 ml 657 ml Other 250 ml 250 ml Tube Feeding Residual Discard 0 ml # Voids 4 2 3 # Bowel Movements 0 0 Result Diagram: 09/06/16 1840 09/06/16 1840 Imaging Last Impressions Chest X-Ray 09/06/16 0000 Signed Impressions: Service Date/Time: Tuesday, September 06, 2016 17:34 - CONCLUSION: Mild motion artifact with mild hazy opacity at the lung bases no definite consolidation. Mikie Franco MD Renal Ultrasound 08/28/16 0000 Signed Impressions: Service Date/Time: Sunday, August 28, 2016 20:03 - CONCLUSION: Mild increased echotexture of both kidneys. Baldev Vu MD Upper Extremity Ultrasound 08/19/16 0000 Signed Impressions: Service Date/Time: Friday, August 19, 2016 22:32 - CONCLUSION: Left cephalic vein occlusive thrombus noted in the antecubital fossa. Baldev Vu MD Lumbar Puncture Fluoroscopy 08/17/16 0000 Signed Impressions: Service Date/Time: Wednesday, August 17, 2016 12:26 - CONCLUSION: Uncomplicated fluoroscopically guided lumbar puncture. Vishal Beckford Jr., MD Brain MRI 08/17/16 0000 Signed Impressions: Service Date/Time: Wednesday, August 17, 2016 13:28 - CONCLUSION: Remote long-standing areas of abnormality in the brainstem and middle cerebellar peduncle consistent with remote infarcts or contusion. No acute intracranial abnormality. Chacho Bright MD Abdomen X-Ray 08/17/16 0000 Signed Impressions: Service Date/Time: Wednesday, August 17, 2016 13:02 - CONCLUSION: No evidence of obstruction. No MRI incompatible foreign body is identified. Chacho Bright MD Head CT 08/16/16 0000 Signed Impressions: Service Date/Time: Tuesday, August 16, 2016 09:55 - CONCLUSION: Chronic ischemic changes left frontal lobe possibly from evidence of previous ventriculostomy placement, unchanged. No acute intracranial abnormality. Gen Potter MD Modified Barium Swallow 08/15/16 0000 Signed Impressions: Service Date/Time: Monday, August 15, 2016 00:00 - CONCLUSION: See report above and speech pathology report Chacho Bright MD Objective Remarks GENERAL: Pleasant 46 yo AA male, chronically ill-appearing male in no apparent distress. Can nod yes/no to questions. SKIN: Sacral partial skin loss. Left upper back and medial antecubital area with skin tears. Wounds appear clean. Dried wound on the left wrist. CARDIOVASCULAR: Normal rate and regular rhythm without murmurs, gallops, or rubs. RESPIRATORY: Poor respiratory effort. Breath sounds equal and clear to auscultation bilaterally. GASTROINTESTINAL: Abdomen soft, non-distended. Normal active bowel sounds MUSCULOSKELETAL: Extremities without some evidence of contractures. NEURO: Patient is aphasic, can nod yes or no to questions. Follow commands. Generalized weakness. Right hemiparesis from previous stroke. PSYCH: Flattened affect. A/P Problem List: (1) UTI (urinary tract infection) ICD Code: N39.0 Status: Resolved (2) Sepsis ICD Code: A41.9 Status: Acute (3) Altered mental status ICD Code: R41.82 Status: Resolved (4) 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 (5) Impaired mobility and activities of daily living ICD Code: Z74.09 Status: Acute Assessment and Plan 46-year-old male with history of neuro-Behcet's diagnosed at [place], left frontal CVA, bedbound, nonverbal, mural thrombus, history of brain abscess, meningitis, hypertension, diabetes, presents for decreased oral intake 23 days prior to admission, and skin tear at the left upper extremity and upper back. According to the patient's , he has been having a declining course. Sepsis Appears to be improving after Rocephin started. Initially thought to be due to UTI but urine culture neg. On arrival patient was tachycardic with heart rate 131, rectal temperature 99.8. Labs remarkable for WBC 14.9 K, elevated BUN 28, lactic acid 1.7. CXR images reviewed, unremarkable. One out of 4 blood cultures with staph epidermidis. ?Contaminant. Repeat blood cultures unremarkable. Brain CT and MRI unremarkable. Status post LP. CSF culture negative. Pt with low grade fever and elevated HR 3/3. Resolved. - Sepsis improving on antibiotics. Discussed with Dr. Reyes. Skin lesions could have been the source. - ceftriaxone and vanco discontinued per ID. Monitor off of antibiotics. - urine culture growing yeast. On IV fluconazole, DCD 09/07. Hold statin. - Noted with spikes of fevers 101, patient has no complaints no leucocytosis. Patient is tachycardic. Will repeat blood cultures, will check LA, UA and CXR all normal. Started IV abx zosyn and vanco. Reconsult ID for persistent fevers , meets sepsis criteria. Discussed with Dr Reyes ID , spikes of fevers likely related to Neuro-Behcet. DC abx per ID. Will need steroids. Sacral partial skin loss. Reordered wave specialty bed as patient is at risk of having pressure related ulcers. Wound care was consulted. Apply skin barrier cream. Patient with persistent sinus tachycardia. EKG ordered and reviewed with sinus tachycardia. On atenolol 12.5 mg po daily if BP permits. Monitor VS. Monitor on telemetry. Neuro-Behcet No new changes on imaging. Patient followed by neurology. Aphasic at baseline. - If neuro status worsening, advised starting steroid. Follow up with neuro. - Consult OT, PT. Will possibly need placement. Case management assistance appreciated. Mood disorder Patient having crying outbursts. He has done that in the past. Could be related to depression. Psychiatry consult appreciated. - fluoxetine started per psych. Mood has been stable. Decreased oral intake and dysphagia Speech therapy following. S/P barium swallow. Patient with severe dysphagia. GI placed PEG. - Continue diet per speech along with tube feeding. Tolerating 08/29. - free water 250 cc every 6 hours. Left upper back and medial antecubital skin tear Etiology unclear. Family reports that it started as a blister. S/p antibiotics. - Continue dressing changes per RN. Dressings changed 08/25. Diabetes Glucose well controlled 08/29. - monitor Accu-Cheks BID and cover with low-dose SSI. Cephalic vein thrombus Noted on LUE US. - hold off on full anticoagulation as superficial vein. Renal insufficiency Likely prerenal. Renal ultrasound with increased echotexture. - IVFs and follow BMP. - check urine sodium and creatinine. UTI Urine culture growing Daphney species. - Continue fluconazole started 08/28. DVT Prophylaxis: Lovenox, TEDs/SCDs. Discharge Planning DC to SNF when bed available. Case management assistance appreciated. Discussed with the patient, nurse, Kathleen from wound care . Problem Qualifiers (1) UTI (urinary tract infection): Qualified Code: N39.0 - Urinary tract infection without hematuria, site unspecified Brittany Garner MD Sep 07, 2016 12:33
--- NOTE | 2016-09-07 14:13 | HHI.IDPN ---
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 Patient has reportedly been evaluated at [facility] and is on chronic steroids. Patient also underwent rehab but does not appear to have changed in fact from review of notes appears worsening. With this background patient was admitted. All the information obtained from the EMR and ER physicians know as the patient is nonverbal and unable to provide any history. Apparently, the patient lives at home with his sister who is his yard hand. She reported the patient has had decreased oral intake over the past few days. Also complains of a skin tear at the left antecubital space, unknown how the injury occurred. Upon arrival to the ER, patient was tachycardic with heart rate 131, rectal temperature 99.8. Labs remarkable for WBC 14.9 K, elevated BUN 28, lactic acid 1.7. Urinalysis shows possible UTI with bacteria. Blood cultures collected. He was started on IV Vanco and Zosyn. ID reconsulted for new fevers. Overnight events reviewed Fevers high grade. No major clinical change per chart review and d.w . No rash No diarrhea. Antibiotics Cefepime IV Vanco IV Lines Line sites with no e.o infection Past Medical History reviewed Allergies: Coded Allergies: No Known Allergies (Unverified , 08/17/16) Objective . Vital Signs Date Time Temp Pulse Resp B/P Pulse Ox O2 Delivery O2 Flow Rate FiO2 09/07/16 12:00 96.8 86 17 100/63 99 09/07/16 08:00 97.2 101 17 111/71 97 09/07/16 04:06 98.6 96 16 111/76 97 09/07/16 00:29 100.8 103 18 110/76 99 09/06/16 21:00 102.2 114 20 96 09/06/16 19:56 103.5 122 20 120/82 97 09/06/16 16:25 101.4 108 18 104/69 98 09/06/16 09/06/16 09/07/16 15:00 23:00 07:00 Intake Total 900 ml 1878 ml Output Total 0 ml Balance 900 ml 1878 ml IV Total 971 ml Tube Feeding 900 ml 657 ml Other 250 ml Tube Feeding Residual Discard 0 ml # Voids 2 3 # Bowel Movements 0 . Laboratory Tests Test 09/06/16 18:40 White Blood Count 13.4 TH/MM3 Red Blood Count 4.05 MIL/MM3 Hemoglobin 11.3 GM/DL Hematocrit 35.0 % Mean Corpuscular Volume 86.5 FL Mean Corpuscular Hemoglobin 27.8 PG Mean Corpuscular Hemoglobin 32.2 % Concent Red Cell Distribution Width 16.0 % Platelet Count 409 TH/MM3 Mean Platelet Volume 9.0 FL Neutrophils (%) (Auto) 80.6 % Lymphocytes (%) (Auto) 12.3 % Monocytes (%) (Auto) 6.8 % Eosinophils (%) (Auto) 0.1 % Basophils (%) (Auto) 0.2 % Neutrophils # (Auto) 10.8 TH/MM3 Lymphocytes # (Auto) 1.7 TH/MM3 Monocytes # (Auto) 0.9 TH/MM3 Eosinophils # (Auto) 0.0 TH/MM3 Basophils # (Auto) 0.0 TH/MM3 CBC Comment DIFF FINAL Differential Comment Laboratory Tests Test 09/06/16 09/06/16 18:40 19:55 Sodium Level 134 MEQ/L Potassium Level 4.0 MEQ/L Chloride Level 97 MEQ/L Carbon Dioxide Level 28.3 MEQ/L Anion Gap 9 MEQ/L Blood Urea Nitrogen 15 MG/DL Creatinine 1.10 MG/DL Estimat Glomerular Filtration 88 ML/MIN Rate Random Glucose 113 MG/DL Calcium Level 9.3 MG/DL Lactic Acid Level 0.7 mmol/L Microbiology Date/Time Procedure Status Source Growth 09/06/16 18:40 Aerobic Blood Culture - Preliminary Resulted Blood Peripheral NO GROWTH IN 1 DAY 09/06/16 18:40 Anaerobic Blood Culture - Preliminary Resulted Blood Peripheral NO GROWTH IN 1 DAY 09/06/16 18:46 Aerobic Blood Culture - Preliminary Resulted Blood Peripheral NO GROWTH IN 1 DAY 09/06/16 18:46 Anaerobic Blood Culture - Preliminary Resulted Blood Peripheral NO GROWTH IN 1 DAY Imaging Last Impressions Lumbar Puncture Fluoroscopy 08/17/16 0000 Signed Impressions: Service Date/Time: Wednesday, August 17, 2016 12:26 - CONCLUSION: Uncomplicated fluoroscopically guided lumbar puncture. Vishal Beckford Jr., MD Brain MRI 08/17/16 0000 Signed Impressions: Service Date/Time: Wednesday, August 17, 2016 13:28 - CONCLUSION: Remote long-standing areas of abnormality in the brainstem and middle cerebellar peduncle consistent with remote infarcts or contusion. No acute intracranial abnormality. Chacho Bright MD Abdomen X-Ray 08/17/16 0000 Signed Impressions: Service Date/Time: Wednesday, August 17, 2016 13:02 - CONCLUSION: No evidence of obstruction. No MRI incompatible foreign body is identified. Chacho Bright MD Head CT 08/16/16 0000 Signed Impressions: Service Date/Time: Tuesday, August 16, 2016 09:55 - CONCLUSION: Chronic ischemic changes left frontal lobe possibly from evidence of previous ventriculostomy placement, unchanged. No acute intracranial abnormality. Gen Potter MD Chest X-Ray 08/15/16 1617 Signed Impressions: Service Date/Time: Monday, August 15, 2016 16:35 - CONCLUSION: No acute disease. No significant change has occurred. No significant change has occurred. Chacho Bright MD Modified Barium Swallow 08/15/16 0000 Signed Impressions: Service Date/Time: Monday, August 15, 2016 00:00 - CONCLUSION: See report above and speech pathology report Chacho Bright MD Physical Exam GENERAL: Poorly nourished, poorly-developed patient, in no apparent distress. SKIN: No rashes. HEAD: Atraumatic. Normocephalic. No temporal or scalp tenderness. EYES: Pupils equal round and reactive. Extraocular motions intact. No scleral icterus. No injection or drainage. ENT: Nose without bleeding, purulent drainage or septal hematoma. Throat without erythema, tonsillar hypertrophy or exudate. Uvula midline. Airway patent. NECK: Trachea midline. Supple, nontender, no meningeal signs. CARDIOVASCULAR: HS audible. No murmur. RESPIRATORY: Clear to auscultation. Breath sounds equal bilaterally. GASTROINTESTINAL: Abdomen soft, non-tender, nondistended. MUSCULOSKELETAL: Extremities without clubbing, cyanosis, or edema. NEUROLOGICAL: Awake and alert. Aphasic. LE weakness but able to flex both limbs minimally. Contractures noted. Psych: diff to assess, cooperative. IV line sites with no e.o infection. Assessment & Plan Remarks New fevers: Infectious(line or maurice cath infection) vs Non Infectious (DVT vs underlying Neurobehcets disease) Prior Staph epi bacteremia: ? contaminant. Cellulitis bilateral LE: resolved. 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 H/o Meningitis and Brain abscess. Aphasic Recs Continue Zosyn IV Continue Vanco IV (target 10-15) for now. Check Procalcitonin if normal less likely to be of infectious etiology. Follow cultures Follow clinically. Elizabeth Albright. Berna Reyes MD Sep 07, 2016 14:13
[2016-09-07 16:00] VITALS: BP 106/78; PULSE 84; RESP 17; TEMP 97.2; O2SAT 99
[2016-09-07 20:59] VITALS: BP 133/87; PULSE 96; RESP 18; TEMP 98.1; O2SAT 99
[2016-09-08] VITALS: BP 130/80; PULSE 98; RESP 18; TEMP 98.8; O2SAT 99
[2016-09-08] MEDS: PIPERACIL-TAZO 4.5 GM PREMIX 100 ML IV SCH ×3 (00:32→09:46)
[2016-09-08] MEDS: FAMOTIDINE 20 MG TAB PO SCH ×3 (00:33→21:45)
[2016-09-08] MEDS: VANCOMYCIN INJ 1,250 MG in SODIUM CHLOR 0.9% 250 ML INJ 250 ML IV SCH ×2 (00:33→12:10)
[2016-09-08 02:00] VITALS: BP 126/81; PULSE 90; RESP 21; TEMP 97.8; O2SAT 98
[2016-09-08] MEDS: SODIUM CHLOR 0.9% 1000 ML INJ 1,000 ML IV SCH ×3 (04:59→19:12)
[2016-09-08] MEDS: INSULIN ASPART SUPPLEMENTAL SCALE SQ SCH ×4 (05:07→21:00)
[2016-09-08 08:00] VITALS: BP 126/86; PULSE 93; RESP 21; TEMP 96; O2SAT 99
--- NOTE | 2016-09-08 08:45 | HHI.PR ---
Subjective Remarks No fevers overnight. No chest pain , sob, n/v/d/c. Speciality bed not delivered. Objective Vitals Vital Signs Date Time Temp Pulse Resp B/P Pulse Ox O2 Delivery O2 Flow Rate FiO2 09/08/16 08:00 96.0 93 21 126/86 99 09/08/16 02:00 97.8 90 21 126/81 98 09/08/16 00:00 98.8 98 18 130/80 99 09/07/16 20:59 98.1 96 18 133/87 99 09/07/16 16:00 97.2 84 17 106/78 99 09/07/16 12:00 96.8 86 17 100/63 99 I/O 09/07/16 09/07/16 09/07/16 09/08/16 09/08/16 09/08/16 07:00 15:00 23:00 07:00 15:00 23:00 Intake Total 1878 ml 1981 ml 900 ml Output Total 0 ml 3 ml Balance 1878 ml 0 ml 1981 ml 897 ml IV Total 971 ml 1245 ml Tube Feeding 657 ml 736 ml 900 ml Other 250 ml Output Urine Total 3 ml Tube Feeding Residual Discard 0 ml 0 ml # Voids 3 3 2 2 # Bowel Movements 0 2 0 0 Result Diagram: 09/06/16 1840 09/06/16 1840 Imaging Last Impressions Chest X-Ray 09/06/16 0000 Signed Impressions: Service Date/Time: Tuesday, September 06, 2016 17:34 - CONCLUSION: Mild motion artifact with mild hazy opacity at the lung bases no definite consolidation. Mikie Franco MD Renal Ultrasound 08/28/16 0000 Signed Impressions: Service Date/Time: Sunday, August 28, 2016 20:03 - CONCLUSION: Mild increased echotexture of both kidneys. Baldev Vu MD Upper Extremity Ultrasound 08/19/16 0000 Signed Impressions: Service Date/Time: Friday, August 19, 2016 22:32 - CONCLUSION: Left cephalic vein occlusive thrombus noted in the antecubital fossa. Baldev Vu MD Lumbar Puncture Fluoroscopy 08/17/16 0000 Signed Impressions: Service Date/Time: Wednesday, August 17, 2016 12:26 - CONCLUSION: Uncomplicated fluoroscopically guided lumbar puncture. Vishal Beckford Jr., MD Brain MRI 08/17/16 0000 Signed Impressions: Service Date/Time: Wednesday, August 17, 2016 13:28 - CONCLUSION: Remote long-standing areas of abnormality in the brainstem and middle cerebellar peduncle consistent with remote infarcts or contusion. No acute intracranial abnormality. Chacho Bright MD Abdomen X-Ray 08/17/16 0000 Signed Impressions: Service Date/Time: Wednesday, August 17, 2016 13:02 - CONCLUSION: No evidence of obstruction. No MRI incompatible foreign body is identified. Chacho Bright MD Head CT 08/16/16 0000 Signed Impressions: Service Date/Time: Tuesday, August 16, 2016 09:55 - CONCLUSION: Chronic ischemic changes left frontal lobe possibly from evidence of previous ventriculostomy placement, unchanged. No acute intracranial abnormality. Gen Potter MD Modified Barium Swallow 08/15/16 0000 Signed Impressions: Service Date/Time: Monday, August 15, 2016 00:00 - CONCLUSION: See report above and speech pathology report Chacho Bright MD Objective Remarks GENERAL: Pleasant 46 yo AA male, chronically ill-appearing male in no apparent distress. Can nod yes/no to questions. SKIN: Sacral partial skin loss. Left upper back and medial antecubital area with skin tears. Wounds appear clean. Dried wound on the left wrist. CARDIOVASCULAR: Normal rate and regular rhythm without murmurs, gallops, or rubs. RESPIRATORY: Poor respiratory effort. Breath sounds equal and clear to auscultation bilaterally. GASTROINTESTINAL: Abdomen soft, non-distended. Normal active bowel sounds MUSCULOSKELETAL: Extremities without some evidence of contractures. NEURO: Patient is aphasic, can nod yes or no to questions. Follow commands. Generalized weakness. Right hemiparesis from previous stroke. PSYCH: Flattened affect. 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 According to the patient's , he has been having a declining course. Sepsis Appears to be improving after Rocephin started. Initially thought to be due to UTI but urine culture neg. On arrival patient was tachycardic with heart rate 131, rectal temperature 99.8. Labs remarkable for WBC 14.9 K, elevated BUN 28, lactic acid 1.7. CXR images reviewed, unremarkable. One out of 4 blood cultures with staph epidermidis. ?Contaminant. Repeat blood cultures unremarkable. Brain CT and MRI unremarkable. Status post LP. CSF culture negative. Pt with low grade fever and elevated HR /. Resolved. - Sepsis improving on antibiotics. Discussed with Dr. Reyes. Skin lesions could have been the source. - ceftriaxone and vanco discontinued per ID. Monitor off of antibiotics. - urine culture growing yeast. On IV fluconazole, DCD 09/07. Hold statin. - Noted with spikes of fevers 101, patient has no complaints no leucocytosis. Patient is tachycardic. Will repeat blood cultures, will check LA, UA and CXR all normal. Started IV abx zosyn and vanco. Reconsult ID for persistent fevers , meets sepsis criteria. Discussed with Dr Eric BORJA , spikes of fevers likely related to Neuro-Behcet. DC abx per ID. Will need steroids. Sacral partial skin loss. Reordered wave specialty bed as patient is at risk of having pressure related ulcers. Wound care was consulted. Apply skin barrier cream. Patient with persistent sinus tachycardia. EKG ordered and reviewed with sinus tachycardia. On atenolol 12.5 mg po daily if BP permits. Monitor VS. Monitor on telemetry. Neuro-Behcet No new changes on imaging. Patient followed by neurology. Aphasic at baseline. - If neuro status worsening, advised starting steroid. Follow up with neuro. - Consult OT, PT. Will possibly need placement. Case management assistance appreciated. Mood disorder Patient having crying outbursts. He has done that in the past. Could be related to depression. Psychiatry consult appreciated. - fluoxetine started per psych. Mood has been stable. Decreased oral intake and dysphagia Speech therapy following. S/P barium swallow. Patient with severe dysphagia. GI placed PEG. - Continue diet per speech along with tube feeding. Tolerating 08/29. - free water 250 cc every 6 hours. Left upper back and medial antecubital skin tear Etiology unclear. Family reports that it started as a blister. S/p antibiotics. - Continue dressing changes per RN. Dressings changed 08/25. Diabetes Glucose well controlled 08/29. - monitor Accu-Cheks BID and cover with low-dose SSI. Cephalic vein thrombus Noted on LUE US. - hold off on full anticoagulation as superficial vein. Renal insufficiency Likely prerenal. Renal ultrasound with increased echotexture. - IVFs and follow BMP. - check urine sodium and creatinine. UTI Urine culture growing Daphney species. - Continue fluconazole started 08/28. DVT Prophylaxis: Lovenox, TEDs/SCDs. Discharge Planning DC to SNF when bed available. Case management assistance appreciated. Discussed with the patient, nurse. Problem Qualifiers (1) UTI (urinary tract infection): Qualified Code: N39.0 - Urinary tract infection without hematuria, site unspecified Brittany Garner MD Sep 08, 2016 08:45
[2016-09-08] MEDS: ENOXAPARIN SODIUM 40 MG/0.4 ML SYRINGE SQ SCH (09:47)
[2016-09-08] MEDS: FLUoxetine HCL 10 MG CAP PO SCH (09:51)
[2016-09-08 10:09] LABS: CREATININE 0.76 MG/DL (0.60-1.30)
[2016-09-08 12:00] VITALS: BP 107/79; PULSE 87; RESP 21; TEMP 95.7; O2SAT 96
--- NOTE | 2016-09-08 15:11 | HHI.IDPN ---
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 Patient has reportedly been evaluated at [facility] and is on chronic steroids. Patient also underwent rehab but does not appear to have changed in fact from review of notes appears worsening. With this background patient was admitted. All the information obtained from the EMR and ER physicians know as the patient is nonverbal and unable to provide any history. Apparently, the patient lives at home with his sister who is his furnace caretaker. She reported the patient has had decreased oral intake over the past few days. Also complains of a skin tear at the left antecubital space, unknown how the injury occurred. Upon arrival to the ER, patient was tachycardic with heart rate 131, rectal temperature 99.8. Labs remarkable for WBC 14.9 K, elevated BUN 28, lactic acid 1.7. Urinalysis shows possible UTI with bacteria. Blood cultures collected. He was started on IV Vanco and Zosyn. ID reconsulted for new fevers. Overnight events reviewed No fevers No major clinical change per chart review and d.w . No rash No diarrhea. Antibiotics Zosyn IV Vanco IV Lines Line sites with no e.o infection Past Medical History reviewed Allergies: Coded Allergies: No Known Allergies (Unverified , 08/17/16) Objective . Vital Signs Date Time Temp Pulse Resp B/P Pulse Ox O2 Delivery O2 Flow Rate FiO2 09/08/16 12:00 95.7 87 21 107/79 96 09/08/16 08:00 96.0 93 21 126/86 99 09/08/16 02:00 97.8 90 21 126/81 98 09/08/16 00:00 98.8 98 18 130/80 99 09/07/16 20:59 98.1 96 18 133/87 99 09/07/16 16:00 97.2 84 17 106/78 99 09/07/16 09/07/16 09/08/16 15:00 23:00 07:00 Intake Total 1981 ml 1725 ml Output Total 0 ml 3.0 ml Balance 0 ml 1981 ml 1722.0 ml IV Total 1245 ml 825 ml Tube Feeding 736 ml 900 ml Output Urine Total 3 ml Tube Feeding Residual Discard 0 ml 0 ml # Voids 3 2 2 # Bowel Movements 2 0 0 . Laboratory Tests Test 09/06/16 18:40 White Blood Count 13.4 TH/MM3 Red Blood Count 4.05 MIL/MM3 Hemoglobin 11.3 GM/DL Hematocrit 35.0 % Mean Corpuscular Volume 86.5 FL Mean Corpuscular Hemoglobin 27.8 PG Mean Corpuscular Hemoglobin 32.2 % Concent Red Cell Distribution Width 16.0 % Platelet Count 409 TH/MM3 Mean Platelet Volume 9.0 FL Neutrophils (%) (Auto) 80.6 % Lymphocytes (%) (Auto) 12.3 % Monocytes (%) (Auto) 6.8 % Eosinophils (%) (Auto) 0.1 % Basophils (%) (Auto) 0.2 % Neutrophils # (Auto) 10.8 TH/MM3 Lymphocytes # (Auto) 1.7 TH/MM3 Monocytes # (Auto) 0.9 TH/MM3 Eosinophils # (Auto) 0.0 TH/MM3 Basophils # (Auto) 0.0 TH/MM3 CBC Comment DIFF FINAL Differential Comment Laboratory Tests Test 09/06/16 09/06/16 09/07/16 09/08/16 18:40 19:55 21:45 09:07 Sodium Level 134 MEQ/L Potassium Level 4.0 MEQ/L Chloride Level 97 MEQ/L Carbon Dioxide Level 28.3 MEQ/L Anion Gap 9 MEQ/L Blood Urea Nitrogen 15 MG/DL Creatinine 1.10 MG/DL 0.76 MG/DL Estimat Glomerular Filtration 88 ML/MIN 135 ML/MIN Rate Random Glucose 113 MG/DL Calcium Level 9.3 MG/DL Lactic Acid Level 0.7 mmol/L Procalcitonin 0.28 ng/mL Microbiology Date/Time Procedure Status Source Growth 09/06/16 18:40 Aerobic Blood Culture - Preliminary Resulted Blood Peripheral NO GROWTH IN 2 DAYS 09/06/16 18:40 Anaerobic Blood Culture - Preliminary Resulted Blood Peripheral NO GROWTH IN 2 DAYS 09/06/16 18:46 Aerobic Blood Culture - Preliminary Resulted Blood Peripheral NO GROWTH IN 2 DAYS 09/06/16 18:46 Anaerobic Blood Culture - Preliminary Resulted Blood Peripheral NO GROWTH IN 2 DAYS 09/07/16 14:15 Aerobic Blood Culture - Preliminary Resulted Blood Peripheral NO GROWTH IN 1 DAY 09/07/16 14:15 Anaerobic Blood Culture - Preliminary Resulted Blood Peripheral NO GROWTH IN 1 DAY 09/07/16 14:30 Aerobic Blood Culture - Preliminary Resulted Blood Peripheral NO GROWTH IN 1 DAY 09/07/16 14:30 Anaerobic Blood Culture - Preliminary Resulted Blood Peripheral NO GROWTH IN 1 DAY Imaging Last Impressions Lumbar Puncture Fluoroscopy 08/17/16 0000 Signed Impressions: Service Date/Time: Wednesday, August 17, 2016 12:26 - CONCLUSION: Uncomplicated fluoroscopically guided lumbar puncture. Vishal Beckford Jr., MD Brain MRI 08/17/16 0000 Signed Impressions: Service Date/Time: Wednesday, August 17, 2016 13:28 - CONCLUSION: Remote long-standing areas of abnormality in the brainstem and middle cerebellar peduncle consistent with remote infarcts or contusion. No acute intracranial abnormality. Chacho Bright MD Abdomen X-Ray 08/17/16 0000 Signed Impressions: Service Date/Time: Wednesday, August 17, 2016 13:02 - CONCLUSION: No evidence of obstruction. No MRI incompatible foreign body is identified. Chacho Bright MD Head CT 08/16/16 0000 Signed Impressions: Service Date/Time: Tuesday, August 16, 2016 09:55 - CONCLUSION: Chronic ischemic changes left frontal lobe possibly from evidence of previous ventriculostomy placement, unchanged. No acute intracranial abnormality. Gen Potter MD Chest X-Ray 08/15/16 1617 Signed Impressions: Service Date/Time: Monday, August 15, 2016 16:35 - CONCLUSION: No acute disease. No significant change has occurred. No significant change has occurred. Chacho Bright MD Modified Barium Swallow 08/15/16 0000 Signed Impressions: Service Date/Time: Monday, August 15, 2016 00:00 - CONCLUSION: See report above and speech pathology report Chacho Bright MD Physical Exam GENERAL: Poorly nourished, poorly-developed patient, in no apparent distress. SKIN: No rashes. HEAD: Atraumatic. Normocephalic. No temporal or scalp tenderness. EYES: Pupils equal round and reactive. Extraocular motions intact. No scleral icterus. No injection or drainage. ENT: Nose without bleeding, purulent drainage or septal hematoma. Throat without erythema, tonsillar hypertrophy or exudate. Uvula midline. Airway patent. NECK: Trachea midline. Supple, nontender, no meningeal signs. CARDIOVASCULAR: HS audible. No murmur. RESPIRATORY: Clear to auscultation. Breath sounds equal bilaterally. GASTROINTESTINAL: Abdomen soft, non-tender, nondistended. MUSCULOSKELETAL: Extremities without clubbing, cyanosis, or edema. NEUROLOGICAL: Awake and alert. Aphasic. LE weakness but able to flex both limbs minimally. Contractures noted. Psych: diff to assess, cooperative. IV line sites with no e.o infection. Assessment & Plan Remarks New fevers: Infectious(line or maurice cath infection) vs Non Infectious (DVT vs underlying Neurobehcets disease) Prior Staph epi bacteremia: ? contaminant. Cellulitis bilateral LE: resolved. 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 H/o Meningitis and Brain abscess. Aphasic Recs DC Zosyn IV DC Vanco IV (target 10-15) for now. Normal Procalcitonin (if normal not likely to be of infectious etiology): yu Albright observe off antibiotics. Follow cultures Follow clinically. Yu Albright. Will sign off please call ID slot floor person if any change in clinical condition. I will be OOT from 09/09/16 to 09/16/16 other ID MDs covering for me. Berna Reyes MD Sep 08, 2016 15:11
[2016-09-08 16:00] VITALS: BP 120/80; PULSE 84; RESP 22; TEMP 95.6; O2SAT 98
[2016-09-08 20:03] VITALS: BP 111/78; PULSE 82; RESP 16; TEMP 97.9; O2SAT 98
[2016-09-08] MEDS: SODIUM CHLORIDE 0.9% FLUSH 5 ML FLUSH FLUSH SCH (21:00)
[2016-09-09] VITALS: BP 123/78; PULSE 83; RESP 16; TEMP 97.5; O2SAT 99
[2016-09-09 04:00] VITALS: BP 112/75; PULSE 85; RESP 16; TEMP 97.4; O2SAT 97
[2016-09-09] MEDS: INSULIN ASPART SUPPLEMENTAL SCALE SQ SCH ×4 (04:56→21:00)
[2016-09-09] MEDS: SODIUM CHLOR 0.9% 1000 ML INJ 1,000 ML IV SCH ×2 (04:57→12:08)
[2016-09-09 08:00] VITALS: BP 108/76; PULSE 88; RESP 16; TEMP 97.1; O2SAT 98
[2016-09-09] MEDS: FAMOTIDINE 20 MG TAB PO SCH ×2 (08:26→21:53)
[2016-09-09] MEDS: ATENOLOL 25 MG TAB PO SCH (08:26)
[2016-09-09] MEDS: FLUoxetine HCL 10 MG CAP PO SCH (08:26)
[2016-09-09] MEDS: SODIUM CHLORIDE 0.9% FLUSH 5 ML FLUSH FLUSH SCH ×2 (08:27→21:00)
[2016-09-09] MEDS: ENOXAPARIN SODIUM 40 MG/0.4 ML SYRINGE SQ SCH (08:27)
--- NOTE | 2016-09-09 11:37 | HHI.PR ---
Subjective Remarks Appears in nad. No fevers or chills. He is disappointed he can't swallow. No n/v /d/c. Objective Vitals Vital Signs Date Time Temp Pulse Resp B/P Pulse Ox O2 Delivery O2 Flow Rate FiO2 09/09/16 08:00 97.1 88 16 108/76 98 09/09/16 04:00 97.4 85 16 112/75 97 09/09/16 00:00 97.5 83 16 123/78 99 09/08/16 20:03 97.9 82 16 111/78 98 09/08/16 16:00 95.6 84 22 120/80 98 09/08/16 12:00 95.7 87 21 107/79 96 I/O 09/08/16 09/08/16 09/08/16 09/09/16 09/09/16 09/09/16 07:00 15:00 23:00 07:00 15:00 23:00 Intake Total 1725 ml Output Total 3.0 ml 0 ml Balance 1722.0 ml 0 ml IV Total 825 ml Tube Feeding 900 ml Output Urine Total 3 ml Tube Feeding Residual Discard 0 ml 0 ml # Voids 2 2 5 # Bowel Movements 0 0 0 Result Diagram: 09/06/16 1840 09/08/16 0907 Imaging Last Impressions Chest X-Ray 09/06/16 0000 Signed Impressions: Service Date/Time: Tuesday, September 06, 2016 17:34 - CONCLUSION: Mild motion artifact with mild hazy opacity at the lung bases no definite consolidation. Mikie Franco MD Renal Ultrasound 08/28/16 0000 Signed Impressions: Service Date/Time: Sunday, August 28, 2016 20:03 - CONCLUSION: Mild increased echotexture of both kidneys. Baldev Vu MD Upper Extremity Ultrasound 08/19/16 0000 Signed Impressions: Service Date/Time: Friday, August 19, 2016 22:32 - CONCLUSION: Left cephalic vein occlusive thrombus noted in the antecubital fossa. Baldev Vu MD Lumbar Puncture Fluoroscopy 08/17/16 0000 Signed Impressions: Service Date/Time: Wednesday, August 17, 2016 12:26 - CONCLUSION: Uncomplicated fluoroscopically guided lumbar puncture. Vishal Beckford Jr., MD Brain MRI 08/17/16 0000 Signed Impressions: Service Date/Time: Wednesday, August 17, 2016 13:28 - CONCLUSION: Remote long-standing areas of abnormality in the brainstem and middle cerebellar peduncle consistent with remote infarcts or contusion. No acute intracranial abnormality. Chacho Bright MD Abdomen X-Ray 08/17/16 0000 Signed Impressions: Service Date/Time: Wednesday, August 17, 2016 13:02 - CONCLUSION: No evidence of obstruction. No MRI incompatible foreign body is identified. Chacho Bright MD Head CT 08/16/16 0000 Signed Impressions: Service Date/Time: Tuesday, August 16, 2016 09:55 - CONCLUSION: Chronic ischemic changes left frontal lobe possibly from evidence of previous ventriculostomy placement, unchanged. No acute intracranial abnormality. Gen Potter MD Modified Barium Swallow 08/15/16 0000 Signed Impressions: Service Date/Time: Monday, August 15, 2016 00:00 - CONCLUSION: See report above and speech pathology report Chacho Bright MD Objective Remarks GENERAL: Pleasant 46 yo AA male, chronically ill-appearing male in no apparent distress. Can nod yes/no to questions. SKIN: Sacral partial skin loss. Left upper back and medial antecubital area with skin tears. Wounds appear clean. Dried wound on the left wrist. CARDIOVASCULAR: Normal rate and regular rhythm without murmurs, gallops, or rubs. RESPIRATORY: Poor respiratory effort. Breath sounds equal and clear to auscultation bilaterally. GASTROINTESTINAL: Abdomen soft, non-distended. Normal active bowel sounds MUSCULOSKELETAL: Extremities without some evidence of contractures. NEURO: Patient is aphasic, can nod yes or no to questions. Follow commands. Generalized weakness. Right hemiparesis from previous stroke. PSYCH: Flattened affect. 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 According to the patient's , he has been having a declining course. Sepsis Appears to be improving after Rocephin started. Initially thought to be due to UTI but urine culture neg. On arrival patient was tachycardic with heart rate 131, rectal temperature 99.8. Labs remarkable for WBC 14.9 K, elevated BUN 28, lactic acid 1.7. CXR images reviewed, unremarkable. One out of 4 blood cultures with staph epidermidis. ?Contaminant. Repeat blood cultures unremarkable. Brain CT and MRI unremarkable. Status post LP. CSF culture negative. Pt with low grade fever and elevated HR 3/. Resolved. - Sepsis improving on antibiotics. Discussed with Dr. Reyes. Skin lesions could have been the source. - ceftriaxone and vanco discontinued per ID. Monitor off of antibiotics. - urine culture growing yeast. On IV fluconazole, DCD 09/07. Hold statin. - Noted with spikes of fevers 101, patient has no complaints no leucocytosis. Patient is tachycardic. Will repeat blood cultures, will check LA, UA and CXR all normal. Started IV abx zosyn and vanco. Reconsult ID for persistent fevers , meets sepsis criteria. Discussed with Dr Reyes ID , spikes of fevers likely related to Neuro-Behcet. DC abx per ID. Will need steroids. Sacral partial skin loss. Reordered wave specialty bed as patient is at risk of having pressure related ulcers. Wound care was consulted. Apply skin barrier cream. Patient with persistent sinus tachycardia. EKG ordered and reviewed with sinus tachycardia. On atenolol 12.5 mg po daily if BP permits. Monitor VS. Monitor on telemetry. Neuro-Behcet No new changes on imaging. Patient followed by neurology. Aphasic at baseline. - If neuro status worsening, advised starting steroid. Follow up with neuro. - Consult OT, PT. Will possibly need placement. Case management assistance appreciated. Mood disorder Patient having crying outbursts. He has done that in the past. Could be related to depression. Psychiatry consult appreciated. - fluoxetine started per psych. Mood has been stable. Decreased oral intake and dysphagia Speech therapy following. S/P barium swallow. Patient with severe dysphagia. GI placed PEG. - Continue diet per speech along with tube feeding. Tolerating 08/29. - free water 250 cc every 6 hours. Left upper back and medial antecubital skin tear Etiology unclear. Family reports that it started as a blister. S/p antibiotics. - Continue dressing changes per RN. Dressings changed 08/25. Diabetes Glucose well controlled 08/29. - monitor Accu-Cheks BID and cover with low-dose SSI. Cephalic vein thrombus Noted on LUE US. - hold off on full anticoagulation as superficial vein. Renal insufficiency Likely prerenal. Renal ultrasound with increased echotexture. - IVFs and follow BMP. - check urine sodium and creatinine. UTI Urine culture growing Daphney species. - Continue fluconazole started 08/28. DVT Prophylaxis: Lovenox, TEDs/SCDs. Discharge Planning DC to SNF when bed available. Case management assistance appreciated. Discussed with the patient, nurse. Problem Qualifiers (1) UTI (urinary tract infection): Qualified Code: N39.0 - Urinary tract infection without hematuria, site unspecified Brittany Garner MD Sep 09, 2016 11:37
[2016-09-09 12:00] VITALS: BP 112/76; PULSE 86; RESP 18; TEMP 97.1; O2SAT 98
[2016-09-09 16:00] VITALS: BP 117/82; PULSE 97; RESP 18; TEMP 97.5; O2SAT 97
[2016-09-09 20:23] VITALS: BP 115/84; PULSE 97; RESP 18; TEMP 97; O2SAT 99
[2016-09-10 00:58] VITALS: BP 132/90; PULSE 83; RESP 18; TEMP 97.2; O2SAT 100
[2016-09-10] MEDS: SODIUM CHLOR 0.9% 1000 ML INJ 1,000 ML IV SCH (03:45)
[2016-09-10 04:28] VITALS: BP 120/92; PULSE 98; RESP 18; TEMP 97.6; O2SAT 100
[2016-09-10] MEDS: INSULIN ASPART SUPPLEMENTAL SCALE SQ SCH ×4 (06:29→20:52)
[2016-09-10 08:00] VITALS: BP 141/88; PULSE 103; RESP 18; TEMP 96.9; O2SAT 98
[2016-09-10] MEDS: SODIUM CHLORIDE 0.9% FLUSH 5 ML FLUSH FLUSH SCH ×2 (09:00→21:03)
[2016-09-10] MEDS: FAMOTIDINE 20 MG TAB PO SCH ×2 (10:40→21:04)
[2016-09-10] MEDS: ATENOLOL 25 MG TAB PO SCH (10:40)
[2016-09-10] MEDS: FLUoxetine HCL 10 MG CAP PO SCH (10:40)
[2016-09-10] MEDS: ENOXAPARIN SODIUM 40 MG/0.4 ML SYRINGE SQ SCH (10:40)
--- NOTE | 2016-09-10 10:43 | HHI.PR ---
Subjective Remarks Says he has some pain in his legs, will give pain meds. No fever or chills. No chest pain or sob. Appears in nad. Objective Vitals Vital Signs Date Time Temp Pulse Resp B/P Pulse Ox O2 Delivery O2 Flow Rate FiO2 09/10/16 08:00 96.9 103 18 141/88 98 09/10/16 04:28 97.6 98 18 120/92 100 09/10/16 00:58 97.2 83 18 132/90 100 09/09/16 20:23 97.0 97 18 115/84 99 09/09/16 16:00 97.5 97 18 117/82 97 09/09/16 12:00 97.1 86 18 112/76 98 I/O 09/09/16 09/09/16 09/09/16 09/10/16 09/10/16 09/10/16 07:00 15:00 23:00 07:00 15:00 23:00 Intake Total 0 ml Output Total 0 ml 0 ml Balance 0 ml 0 ml Intake Oral 0 ml Tube Feeding Residual Discard 0 ml 0 ml # Voids 5 3 2 3 # Bowel Movements 0 1 Result Diagram: 09/06/16 1840 09/08/16 0907 Imaging Last Impressions Chest X-Ray 09/06/16 0000 Signed Impressions: Service Date/Time: Tuesday, September 06, 2016 17:34 - CONCLUSION: Mild motion artifact with mild hazy opacity at the lung bases no definite consolidation. Mikie Franco MD Renal Ultrasound 08/28/16 0000 Signed Impressions: Service Date/Time: Sunday, August 28, 2016 20:03 - CONCLUSION: Mild increased echotexture of both kidneys. Baldev Vu MD Upper Extremity Ultrasound 08/19/16 0000 Signed Impressions: Service Date/Time: Friday, August 19, 2016 22:32 - CONCLUSION: Left cephalic vein occlusive thrombus noted in the antecubital fossa. Baldev Vu MD Lumbar Puncture Fluoroscopy 08/17/16 0000 Signed Impressions: Service Date/Time: Wednesday, August 17, 2016 12:26 - CONCLUSION: Uncomplicated fluoroscopically guided lumbar puncture. Vishal Beckford Jr., MD Brain MRI 08/17/16 0000 Signed Impressions: Service Date/Time: Wednesday, August 17, 2016 13:28 - CONCLUSION: Remote long-standing areas of abnormality in the brainstem and middle cerebellar peduncle consistent with remote infarcts or contusion. No acute intracranial abnormality. Chacho Bright MD Abdomen X-Ray 08/17/16 0000 Signed Impressions: Service Date/Time: Wednesday, August 17, 2016 13:02 - CONCLUSION: No evidence of obstruction. No MRI incompatible foreign body is identified. Chacho Bright MD Head CT 08/16/16 0000 Signed Impressions: Service Date/Time: Tuesday, August 16, 2016 09:55 - CONCLUSION: Chronic ischemic changes left frontal lobe possibly from evidence of previous ventriculostomy placement, unchanged. No acute intracranial abnormality. Gen Potter MD Modified Barium Swallow 08/15/16 0000 Signed Impressions: Service Date/Time: Monday, August 15, 2016 00:00 - CONCLUSION: See report above and speech pathology report Chacho Bright MD Objective Remarks GENERAL: Pleasant 46 yo AA male, chronically ill-appearing male in no apparent distress. Can nod yes/no to questions. SKIN: Sacral partial skin loss. Left upper back and medial antecubital area with skin tears. Wounds appear clean. Dried wound on the left wrist. CARDIOVASCULAR: Normal rate and regular rhythm without murmurs, gallops, or rubs. RESPIRATORY: Poor respiratory effort. Breath sounds equal and clear to auscultation bilaterally. GASTROINTESTINAL: Abdomen soft, non-distended. Normal active bowel sounds MUSCULOSKELETAL: Extremities without some evidence of contractures. NEURO: Patient is aphasic, can nod yes or no to questions. Follow commands. Generalized weakness. Right hemiparesis from previous stroke. PSYCH: Flattened affect. 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 According to the patient's , he has been having a declining course. Sepsis Appears to be improving after Rocephin started. Initially thought to be due to UTI but urine culture neg. On arrival patient was tachycardic with heart rate 131, rectal temperature 99.8. Labs remarkable for WBC 14.9 K, elevated BUN 28, lactic acid 1.7. CXR images reviewed, unremarkable. One out of 4 blood cultures with staph epidermidis. ?Contaminant. Repeat blood cultures unremarkable. Brain CT and MRI unremarkable. Status post LP. CSF culture negative. Pt with low grade fever and elevated HR 3/3. Resolved. - Sepsis improving on antibiotics. Discussed with Dr. Reyes. Skin lesions could have been the source. - ceftriaxone and vanco discontinued per ID. Monitor off of antibiotics. - urine culture growing yeast. On IV fluconazole, DCD 09/07. Hold statin. - Noted with spikes of fevers 101, patient has no complaints no leucocytosis. Patient is tachycardic. Will repeat blood cultures, will check LA, UA and CXR all normal. Started IV abx zosyn and vanco. Reconsult ID for persistent fevers , meets sepsis criteria. Discussed with Dr Reyes ID , spikes of fevers likely related to Neuro-Behcet. DC abx per ID. Will need steroids. Sacral partial skin loss. Reordered wave specialty bed as patient is at risk of having pressure related ulcers. Wound care was consulted. Apply skin barrier cream. Patient with persistent sinus tachycardia. EKG ordered and reviewed with sinus tachycardia. On atenolol 12.5 mg po daily if BP permits. Monitor VS. Monitor on telemetry. Neuro-Behcet No new changes on imaging. Patient followed by neurology. Aphasic at baseline. - If neuro status worsening, advised starting steroid. Follow up with neuro. - Consult OT, PT. Will possibly need placement. Case management assistance appreciated. Pain pointing in his legs: norco as need. Mood disorder Patient having crying outbursts. He has done that in the past. Could be related to depression. Psychiatry consult appreciated. - fluoxetine started per psych. Mood has been stable. Decreased oral intake and dysphagia Speech therapy following. S/P barium swallow. Patient with severe dysphagia. GI placed PEG. - Continue diet per speech along with tube feeding. Tolerating 3/6. - free water 250 cc every 6 hours. Left upper back and medial antecubital skin tear Etiology unclear. Family reports that it started as a blister. S/p antibiotics. - Continue dressing changes per RN. Dressings changed 08/25. Diabetes Glucose well controlled 08/29. - monitor Accu-Cheks BID and cover with low-dose SSI. Cephalic vein thrombus Noted on LUE US. - hold off on full anticoagulation as superficial vein. Renal insufficiency Likely prerenal. Renal ultrasound with increased echotexture. - IVFs and follow BMP. - check urine sodium and creatinine. UTI Urine culture growing Daphney species. - Continue fluconazole started 08/28. DVT Prophylaxis: Lovenox, TEDs/SCDs. Discharge Planning DC to SNF when bed available. Case management assistance appreciated. Discussed with the patient, nurse. Note : might see spikes of fevers likely 2/2 Neuro Bechcet disease, give steroids Stable. Awaiting placement. Plan to transfer to [facility]. Trabnsfer order placed. Discussed with Dr Aquino hospitalist at [facility] and accepted patient Problem Qualifiers (1) UTI (urinary tract infection): Qualified Code: N39.0 - Urinary tract infection without hematuria, site unspecified Brittany Garner MD Sep 10, 2016 10:43
[2016-09-10 12:00] VITALS: BP 137/88; PULSE 100; RESP 16; TEMP 96.5; O2SAT 100
[2016-09-10 16:00] VITALS: BP 116/92; PULSE 106; RESP 16; TEMP 97.1; O2SAT 99
[2016-09-10 20:00] VITALS: BP 136/95; PULSE 110; RESP 12; TEMP 98.2; O2SAT 99
[2016-09-11 04:00] VITALS: BP 121/63; PULSE 72; RESP 16; TEMP 94.5; O2SAT 95
[2016-09-11] MEDS: INSULIN ASPART SUPPLEMENTAL SCALE SQ SCH ×2 (06:18→11:00)
[2016-09-11 08:00] VITALS: BP 124/93; PULSE 134; RESP 19; TEMP 99.2; O2SAT 97
[2016-09-11] MEDS: ENOXAPARIN SODIUM 40 MG/0.4 ML SYRINGE SQ SCH (08:07)
[2016-09-11] MEDS: FLUoxetine HCL 10 MG CAP PO SCH (08:08)
[2016-09-11] MEDS: FAMOTIDINE 20 MG TAB PO SCH ×2 (08:08→21:47)
[2016-09-11] MEDS: SODIUM CHLORIDE 0.9% FLUSH 5 ML FLUSH FLUSH SCH (08:08)
[2016-09-11] MEDS: ATENOLOL 25 MG TAB PO SCH (08:08)
[2016-09-11] MEDS: ACETAMINOPHEN 325 MG TAB PO PRN ×2 (08:08→21:47)
--- NOTE | 2016-09-11 15:57 | HHI.PR ---
Subjective Remarks 46-year-old male with history of neuro patient disease, left frontal CVA, bedbound, nonverbal, mural thrombus, brain abscess, meningitis to presented to hospital because of decreased oral intake over 23 days. Is indicated the patient lives at home with his sister who is his senior integration architect. The patient was brought to the emergency department, tachycardic, rectal temperature 99.8, leukocytosis, urinary tract infection. Patient was found to be septic and admitted the hospital with IV vancomycin and Zosyn. Culture was ascertain in urine culture was negative for 48 hours. He did have 1 positive blood culture of staph epidermidis which appears to be contamination. Patient has significant workup performed with lumbar puncture, multiple cultures. Infectious disease was consulted and followed the patient until testing was complete and indicated that fevers were noninfectious process. They signed off on 09/08/16. Because the patient was unable to tolerate any oral intake. GI was consulted and patient did undergo PEG tube placement on 08/19/16. Patient has been undergoing PEG tube feedings without any complications. Neurology was consulted 08/17/16 for his mentation, fever, agreed with lumbar puncture. Cannot find any follow-up documentation for recommendations. Palliative care was consulted on 08/19/16 for evaluation recommend psychiatry evaluation. [facility] did follow until 09/06/16. During this whole time and appears as if a line is been trying to contact patient's without any success. Psychiatry was consulted who indicated his impossible know the reliability of the patient. Recommending starting Prozac 10 mg daily. Case management has been following and last documentation was 09/10/15 indicating the patient will need long-term care, however be difficult due to out of state Medicaid and no local facility is able to accept. It also appears that on 09/04/16 case management trying to contact patient's family, without any success. By gleaming the records it appears that the patient did come to the hospital with septic like symptoms, unable tolerate food by mouth. He did have PEG tube placement for feeding which is undergoing and stable. No signs of sepsis at this time and has been treated. Patient still remains in the hospital due to no unable to contact , family member concerning this patient's care. Because the patient is unable replaced and now and is able to contact the patient's family is recommending that the patient be transferred to [place] for continued management and care. Objective Vitals Vital Signs Date Time Temp Pulse Resp B/P Pulse Ox O2 Delivery O2 Flow Rate FiO2 09/11/16 08:00 99.2 134 19 124/93 97 09/11/16 04:00 94.5 72 16 121/63 95 09/10/16 20:00 98.2 110 12 136/95 99 09/10/16 16:00 97.1 106 16 116/92 99 I/O 09/10/16 09/10/16 09/10/16 09/11/16 09/11/16 09/11/16 07:00 15:00 23:00 07:00 15:00 23:00 Intake Total 0 ml 2337 ml 50 ml 687 ml Output Total 0 ml 350 ml 300 ml Balance 0 ml 2337 ml -300 ml 387 ml Intake Oral 0 ml 0 ml IV Total 970 ml Tube Feeding 1207 ml 637 ml Other 160 ml 50 ml 50 ml Output Urine Total 350 ml 300 ml Tube Feeding Residual Discard 0 ml # Voids 3 2 # Bowel Movements 1 0 Result Diagram: 09/08/16 0907 Objective Remarks GENERAL: Well-developed, cachectic, in no acute distress. Appears to be alert but nonverbal. Patient lying in position HEENT: Head is normocephalic without any lesions or masses noted. Facial features are symmetric. Eyes: Pupils equal round reactive to light. Extraocular muscles are intact. Conjunctivae were clear. NECK: Supple without any masses. Trachea midline no deviation. No JVD, CARDIAC: Regular rhythm, regular rate. S1/S2 are heard. No murmurs gallops or rubs. LUNGS: Clear to auscultation bilaterally. No wheeze, rhonchi or rales. No use of accessory muscles on inspiration or expiration. ABDOMEN: Soft, nontender. Nondistended. Bowel sounds heard in all 4 quadrants. No organomegaly or masses. Negative rebound, negative guarding. PEG tube noted EXTREMITIES: No edema, pulses are equal bilaterally. No cyanosis or clubbing Urinary Catheter: No Vascular Central Line Catheter: No A/P Assessment and Plan Decreased oral intake and dysphagia on initial presentation Speech therapy following intermittently. S/P barium swallow. Patient with severe dysphagia. GI consulted and PEG tube was placed Dietary recommending Glucerna 1.0 at 75 mL's an hour Sacral partial skin loss. Left upper back and medial antecubital skin tear wave specialty bed as patient is at risk of having pressure related ulcers. Wound care was consulted. Apply skin barrier cream. 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 Patient followed by neurology. Aphasic at baseline. If neuro status worsening, advised starting steroid. Follow up with neuro. Continue PT/OT Sinus tachycardia. EKG ordered and reviewed with sinus tachycardia. On atenolol 12.5 mg po daily if BP permits. Check TSH, free T3, free T4 Mood disorder Patient was evaluated by psychiatrist. Psychiatrist recommended Prozac Diabetes Glucose well controlled. Discontinue Accu-Cheks and sliding scale insulin DVT Prophylaxis: Lovenox, TEDs/SCDs. Discharge Planning Case management for discharge planning. From what I interpret from medical records it appears as if no one is able to contact any family member concerning this patient's care, that appears to be a significant social issue with family, guardianship, placement. Ede Richardson Sep 11, 2016 15:57
[2016-09-11 20:00] VITALS: BP 126/88; PULSE 106; RESP 16; TEMP 100.3; O2SAT 98
[2016-09-12 00:50] LABS: FREE T3 2.2 PG/ML (2.18-3.98); FREE T4 1.4 NG/DL (0.76-1.46)
[2016-09-12 08:00] VITALS: BP 119/84; PULSE 131; RESP 18; TEMP 97.8; O2SAT 95
[2016-09-12] MEDS: FLUoxetine HCL 10 MG CAP PO SCH (09:00)
[2016-09-12] MEDS: ENOXAPARIN SODIUM 40 MG/0.4 ML SYRINGE SQ SCH (10:01)
[2016-09-12] MEDS: ATENOLOL 25 MG TAB PO SCH (10:02)
[2016-09-12] MEDS: FAMOTIDINE 20 MG TAB PO SCH ×2 (10:02→22:01)
--- NOTE | 2016-09-12 10:10 | HHI.PR ---
Subjective Remarks Follow up on patient with sepsis, now resolved and Neuro-Behcet. Patient is aphasic but indicates that he is having left arm pain around the IV site. Objective Vitals Vital Signs Date Time Temp Pulse Resp B/P Pulse Ox O2 Delivery O2 Flow Rate FiO2 09/11/16 20:00 100.3 106 16 126/88 98 I/O 09/11/16 09/11/16 09/11/16 09/12/16 09/12/16 09/12/16 07:00 15:00 23:00 07:00 15:00 23:00 Intake Total 687 ml 0 ml Output Total 300 ml 350 ml 400 ml 250 ml Balance 387 ml -350 ml -400 ml -250 ml Intake Oral 0 ml Tube Feeding 637 ml Other 50 ml Output Urine Total 300 ml 350 ml 400 ml 250 ml # Bowel Movements 1 1 2 Result Diagram: 09/08/16 0907 Objective Remarks GENERAL: Well-developed, cachectic, patient in NAD. Alert but nonverbal. Lying in position. SKIN: Warm and dry. No rash. HEAD: Normocephalic. Atraumatic. EYES: EOMI. NECK: Supple. Trachea midline. CARDIOVASCULAR: Regular rate and rhythm. S1, S2 noted. No murmur appreciated. RESPIRATORY: No accessory muscle use. Clear to auscultation. Breath sounds equal bilaterally. GASTROINTESTINAL: Abdomen soft, non-tender, nondistended. Normoactive bowel sounds x4. MUSCULOSKELETAL: No obvious deformities. Extremities without clubbing, cyanosis , or edema. EXTREMITIES: RUE unremarkable. IV in place. No evidence of leakage, infiltration or infection. No clubbing or edema noted. NEUROLOGICAL: Awake and alert. Aphasic. Medications and IVs Current Medications Medications (Trade) Dose Ordered Sig/Beau Route Start Time Stop Time Status Last Admin (Pepcid) 20 mg BID PO 08/13/16 21:00 09/11/16 21:47 (Tylenol) 650 mg Q4H PRN PO 08/13/16 14:00 09/11/16 21:47 (Tylenol Supp) 650 mg Q6H PRN RECTAL 08/15/16 16:30 09/06/16 20:06 (PROzac) 10 mg DAILY PO 08/24/16 09:00 09/11/16 08:08 (Lovenox Inj) 40 mg Q24H SQ 09/02/16 09:00 09/11/16 08:07 (Tenormin) 12.5 mg DAILY PO 09/02/16 09:00 09/11/16 08:08 (Zofran Liq) 4 mg Q6H PRN PEG 09/11/16 16:00 (Miralax) 17 gm DAILY PRN PEG 09/11/16 16:00 Urinary Catheter: Yes (condom catheter) A/P Problem List: (1) UTI (urinary tract infection) ICD Code: N39.0 Status: Resolved (2) Sepsis ICD Code: A41.9 Status: Acute (3) Altered mental status ICD Code: R41.82 Status: Resolved (4) 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 S/P barium swallow. Patient with severe dysphagia. GI consulted and PEG tube was placed Dietary recommending Glucerna 1.0 at 75 mL's an hour C/O Left forearm pain over volar aspect D/C IV Monitor for improvement Sacral partial skin loss. Left upper back and medial antecubital skin tear wave specialty bed as patient is at risk of having pressure related ulcers. Wound care was consulted. Apply skin barrier cream. 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 Patient followed by neurology. Aphasic at baseline. If neuro status worsening, advised starting steroid. Follow up with neuro. Continue PT/OT Sinus tachycardia. EKG ordered and reviewed with sinus tachycardia. Increased to 25 mg daily, monitor BP with increased dose TSH, free T3 and free T4 all are within normal limits Mood disorder Patient was evaluated by psychiatrist Psychiatrist recommended Prozac Diabetes Glucose well controlled Discontinue Accu-Cheks and sliding scale insulin DVT Prophylaxis: Lovenox, TEDs/SCDs. Discharge Planning Case management for discharge planning. Has been referred to an declined at several SNFs. Patient will need LTC, difficult to place, has [id number] Medicaid, no local facility to accept. It appears as if no one has been able to contact any family member concerning this patient's care, that appears to be a significant social issue with family, guardianship, placement. Problem Qualifiers (1) UTI (urinary tract infection): Qualified Code: N39.0 - Urinary tract infection without hematuria, site unspecified Fadumo Wiley Sep 12, 2016 10:10
[2016-09-12 10:48] VITALS: PULSE 120
[2016-09-12 20:00] VITALS: BP 107/75; PULSE 111; RESP 20; TEMP 97.9; O2SAT 97
[2016-09-13] MEDS: ENOXAPARIN SODIUM 40 MG/0.4 ML SYRINGE SQ SCH (07:42)
[2016-09-13] MEDS: FLUoxetine HCL 10 MG CAP PO SCH (07:42)
[2016-09-13] MEDS: FAMOTIDINE 20 MG TAB PO SCH ×2 (07:42→21:34)
[2016-09-13] MEDS: ATENOLOL 25 MG TAB PO SCH (07:43)
[2016-09-13 08:00] VITALS: BP 118/70; PULSE 99; RESP 20; TEMP 97.8; O2SAT 95
--- NOTE | 2016-09-13 13:07 | HHI.PR ---
Subjective Remarks Follow-up for sepsis. Patient with Behcet's syndrome. Non verbal. Objective Vitals Vital Signs Date Time Temp Pulse Resp B/P Pulse Ox O2 Delivery O2 Flow Rate FiO2 09/13/16 08:00 97.8 99 20 118/70 95 09/12/16 20:00 97.9 111 20 107/75 97 I/O 09/12/16 09/12/16 09/12/16 09/13/16 09/13/16 09/13/16 07:00 15:00 23:00 07:00 15:00 23:00 Intake Total 960 ml Output Total 250 ml 1 ml 200 ml 475 ml 1 ml Balance -250 ml -1 ml 760 ml -475 ml -1 ml Tube Feeding 860 ml Other 100 ml Output Urine Total 250 ml 200 ml 475 ml Stool Total 1 ml 1 ml # Bowel Movements 2 0 Objective Remarks GENERAL: Well-nourished, well-developed patient in no apparent distress. CARDIOVASCULAR: Regular rate and rhythm. RESPIRATORY: No accessory muscle use. Clear to auscultation. Breath sounds equal bilaterally. GASTROINTESTINAL: Abdomen soft, non-tender, nondistended. Feeding tube present. NEUROLOGICAL: Awake and alert, but nonverbal. 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 S/P barium swallow. Patient with severe dysphagia. GI consulted and PEG tube was placed Dietary recommending Glucerna 1.0 at 75 mL's an hour C/O Left forearm pain over volar aspect D/C IV Monitor for improvement Sacral partial skin loss. Left upper back and medial antecubital skin tear wave specialty bed as patient is at risk of having pressure related ulcers. Wound care was consulted. Apply skin barrier cream. I spoke with wound care nurse today who advised Santyl and dry cover to change daily Sepsis symptoms, resolved Full workup was performed to include urinalysis, blood cultures, lumbar puncture, chest x-ray without any initial signs of sepsis Infectious disease was consulted and did full evaluation the patient and recommended that his symptoms was from noninfectious source, infectious disease has signed off Patient did have one urine culture of Daphney parapsilosis, was treated with fluconazole for 10 days Neuro-Behcet, chronic No new changes on imaging. Patient followed by neurology. Aphasic at baseline. If neuro status worsening, advised starting steroid. Follow up with neuro. Continue PT/OT Sinus tachycardia. EKG with sinus tachycardia. Increased to 25 mg daily, monitor BP with increased dose TSH, free T3 and free T4 all are within normal limits Mood disorder Patient was evaluated by psychiatrist Psychiatrist recommended Prozac Diabetes Glucose well controlled Discontinue Accu-Cheks and sliding scale insulin DVT Prophylaxis: Lovenox, TEDs/SCDs. Discharge Planning Case management for discharge planning. Has been referred to an declined at several SNFs. Patient will need LTC, difficult to place, has [id number] Medicaid, no local facility to accept. It appears as if no one has been able to contact any family member concerning this patient's care, that appears to be a significant social issue with family, guardianship, placement. Problem Qualifiers (1) UTI (urinary tract infection): Qualified Code: N39.0 - Urinary tract infection without hematuria, site unspecified Mari Talamantes Sep 13, 2016 13:07
[2016-09-13 20:00] VITALS: BP 114/80; PULSE 102; RESP 16; TEMP 98.5; O2SAT 98
[2016-09-14] MEDS: ATENOLOL 25 MG TAB PO SCH (07:46)
[2016-09-14] MEDS: FAMOTIDINE 20 MG TAB PO SCH ×2 (07:46→21:19)
[2016-09-14] MEDS: ENOXAPARIN SODIUM 40 MG/0.4 ML SYRINGE SQ SCH (07:47)
[2016-09-14] MEDS: FLUoxetine HCL 10 MG CAP PO SCH (07:47)
[2016-09-14 08:00] VITALS: BP 125/89; PULSE 91; RESP 18; TEMP 98.4; O2SAT 98
--- NOTE | 2016-09-14 14:53 | HHI.PR ---
Subjective Remarks Follow-up for sepsis. Patient with Behcet's syndrome. Non verbal. Nods his head yes when I asked if he is okay. Objective Vitals Vital Signs Date Time Temp Pulse Resp B/P Pulse Ox O2 Delivery O2 Flow Rate FiO2 09/14/16 08:00 98.4 91 18 125/89 98 09/13/16 20:00 98.5 102 16 114/80 98 I/O 09/13/16 09/13/16 09/13/16 09/14/16 09/14/16 09/14/16 07:00 15:00 23:00 07:00 15:00 23:00 Intake Total 660 ml 660 ml Output Total 475 ml 1 ml 301 ml 450 ml 200 ml Balance -475 ml -1 ml 359 ml 210 ml -200 ml Tube Feeding 600 ml 600 ml Other 60 ml 60 ml Output Urine Total 475 ml 300 ml 450 ml 200 ml Stool Total 1 ml 1 ml # Voids 2 # Bowel Movements 0 0 Objective Remarks GENERAL: Well-nourished, well-developed patient in no apparent distress. CARDIOVASCULAR: Tachycardic rate and regular rhythm. RESPIRATORY: Limited exam. No accessory muscle use. Clear to auscultation. Breath sounds equal bilaterally. GASTROINTESTINAL: Abdomen soft, non-tender, nondistended. Feeding tube present. NEUROLOGICAL: Awake and alert, but nonverbal. 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 S/P barium swallow. Patient with severe dysphagia. GI consulted and PEG tube was placed Dietary recommending Glucerna 1.0 at 75 mL's an hour C/O Left forearm pain over volar aspect D/C IV Monitor for improvement Sacral partial skin loss. Left upper back and medial antecubital skin tear wave specialty bed as patient is at risk of having pressure related ulcers. Wound care was consulted. Apply skin barrier cream. Santyl and dry cover to change daily over coccyx wound per reworker Sepsis symptoms, resolved Full workup was performed to include urinalysis, blood cultures, lumbar puncture, chest x-ray without any initial signs of sepsis Infectious disease was consulted and did full evaluation the patient and recommended that his symptoms was from noninfectious source, infectious disease has signed off Patient did have one urine culture of Daphney parapsilosis, was treated with fluconazole for 10 days Neuro-Behcet, chronic No new changes on imaging. Patient followed by neurology. Aphasic at baseline. If neuro status worsening, advised starting steroid. Follow up with neuro. Continue PT/OT Sinus tachycardia: EKG with sinus tachycardia. Continue Atenolol 25 mg daily, monitor BP. TSH, free T3 and free T4 all are within normal limits Mood disorder Patient was evaluated by psychiatrist Psychiatrist recommended Prozac Diabetes Glucose well controlled Discontinue Accu-Cheks and sliding scale insulin DVT Prophylaxis: Lovenox, TEDs/SCDs. Discharge Planning Case management for discharge planning. Has been referred to an declined at several SNFs. Patient will need LTC, difficult to place, has [id number] Medicaid, no local facility to accept. It appears as if no one has been able to contact any family member concerning this patient's care, that appears to be a significant social issue with family, guardianship, placement. Problem Qualifiers (1) UTI (urinary tract infection): Qualified Code: N39.0 - Urinary tract infection without hematuria, site unspecified Mari Talamantes Sep 14, 2016 14:53
[2016-09-14] MEDS: COLLAGENASE OINT 30 GM TUBE TOP SCH (16:00)
[2016-09-14 20:00] VITALS: BP 117/94; PULSE 117; RESP 22; TEMP 96.4; O2SAT 99
[2016-09-15 08:00] VITALS: BP 132/99; PULSE 134; RESP 20; TEMP 97.4; O2SAT 96
[2016-09-15] MEDS: FAMOTIDINE 20 MG TAB PO SCH ×2 (10:45→21:03)
[2016-09-15] MEDS: ATENOLOL 25 MG TAB PO SCH (10:45)
[2016-09-15] MEDS: ENOXAPARIN SODIUM 40 MG/0.4 ML SYRINGE SQ SCH (10:46)
[2016-09-15] MEDS: COLLAGENASE OINT 30 GM TUBE TOP SCH (10:46)
[2016-09-15] MEDS: FLUoxetine HCL 10 MG CAP PO SCH (11:14)
--- NOTE | 2016-09-15 18:32 | HHI.PR ---
Subjective Remarks Follow-up for sepsis. Patient with Behcet's syndrome. Non verbal, but nods that he is ok. Objective Vitals Vital Signs Date Time Temp Pulse Resp B/P Pulse Ox O2 Delivery O2 Flow Rate FiO2 09/15/16 08:00 97.4 134 20 132/99 96 09/14/16 20:00 96.4 117 22 117/94 99 I/O 09/14/16 09/14/16 09/14/16 09/15/16 09/15/16 09/15/16 07:00 15:00 23:00 07:00 15:00 23:00 Intake Total 660 ml 0 ml Output Total 450 ml 200 ml 300.00 ml 350 ml 750 ml Balance 210 ml -200 ml -300.00 ml -350 ml -750 ml Intake Oral 0 ml Tube Feeding 600 ml Other 60 ml Output Urine Total 450 ml 200 ml 350 ml 750 ml Blood Draw 300.00 ml # Bowel Movements 0 0 Objective Remarks GENERAL: Well-nourished, well-developed patient in no apparent distress. CARDIOVASCULAR: Tachycardic rate and regular rhythm. RESPIRATORY: Limited exam. Clear to auscultation. Breath sounds equal bilaterally. GASTROINTESTINAL: Abdomen soft, non-tender, nondistended. NEUROLOGICAL: Awake and alert, but nonverbal. 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 S/P barium swallow. Patient with severe dysphagia. GI consulted and PEG tube was placed Dietary recommending Glucerna 1.0 at 75 mL's an hour C/O Left forearm pain over volar aspect D/C IV Monitor for improvement Sacral partial skin loss. Left upper back and medial antecubital skin tear wave specialty bed as patient is at risk of having pressure related ulcers. Wound care was consulted. Apply skin barrier cream. Santyl and dry cover to change daily over coccyx wound per director hospice operations Sepsis symptoms, resolved Full workup was performed to include urinalysis, blood cultures, lumbar puncture, chest x-ray without any initial signs of sepsis Infectious disease was consulted and did full evaluation the patient and recommended that his symptoms was from noninfectious source, infectious disease has signed off Patient did have one urine culture of Daphney parapsilosis, was treated with fluconazole for 10 days Neuro-Behcet, chronic No new changes on imaging. Patient followed by neurology. Aphasic at baseline. If neuro status worsening, advised starting steroid. Follow up with neuro. Continue PT/OT Sinus tachycardia: EKG with sinus tachycardia. Continue Atenolol 25 mg daily, monitor BP. Heart rate increased further to 134 this morning. RN recheck vitals and improved into 1teens which is chronic. May still need to increase atenolol. Will reassess tomorrow. TSH, free T3 and free T4 all are within normal limits Mood disorder Patient was evaluated by psychiatrist Psychiatrist recommended Prozac Diabetes Glucose well controlled Discontinue Accu-Cheks and sliding scale insulin DVT Prophylaxis: Lovenox, TEDs/SCDs. Discharge Planning Case management for discharge planning. Has been referred to an declined at several SNFs. Patient will need LTC, difficult to place, has [id number] Medicaid, no local facility to accept. It appears as if no one has been able to contact any family member concerning this patient's care, that appears to be a significant social issue with family, guardianship, placement. Attending Statement Patient seen. Agree with above. Problem Qualifiers (1) UTI (urinary tract infection): Qualified Code: N39.0 - Urinary tract infection without hematuria, site unspecified Mari Talamantes Sep 15, 2016 18:32 Ede Pablo MD Sep 16, 2016 07:21
[2016-09-15 19:26] VITALS: BP 132/98; PULSE 116; RESP 20; TEMP 98.6; O2SAT 96
[2016-09-15 20:00] VITALS: BP 114/83; PULSE 123; RESP 24; TEMP 96.7; O2SAT 97
[2016-09-16 08:00] VITALS: BP 137/98; PULSE 135; RESP 21; TEMP 97.8; O2SAT 99
[2016-09-16] MEDS: FAMOTIDINE 20 MG TAB PO SCH ×2 (10:18→20:48)
[2016-09-16] MEDS: ENOXAPARIN SODIUM 40 MG/0.4 ML SYRINGE SQ SCH (10:18)
[2016-09-16] MEDS: ATENOLOL 25 MG TAB PO SCH (10:19)
[2016-09-16] MEDS: FLUoxetine HCL 10 MG CAP PO SCH (10:19)
[2016-09-16] MEDS: COLLAGENASE OINT 30 GM TUBE TOP SCH (10:19)
--- NOTE | 2016-09-16 14:34 | HHI.PR ---
Subjective Remarks Follow-up for sepsis. Patient with Behcet's syndrome. Non verbal, but nods to yes and no questions. It sounded like patient had secretions in his upper airway and when I asked if he was short of breath he nodded his head yes, starting yesterday. I asked nurse to suction the secretions. O2 saturation is normal. Objective Vitals Vital Signs Date Time Temp Pulse Resp B/P Pulse Ox O2 Delivery O2 Flow Rate FiO2 09/16/16 08:00 97.8 135 21 137/98 99 09/15/16 20:00 96.7 123 24 114/83 97 09/15/16 19:26 98.6 116 20 132/98 96 I/O 09/15/16 09/15/16 09/15/16 09/16/16 09/16/16 09/16/16 07:00 15:00 23:00 07:00 15:00 23:00 Intake Total 0 ml Output Total 300.00 ml 350 ml 950 ml 200 ml Balance -300.00 ml -350 ml -950 ml -200 ml Intake Oral 0 ml Output Urine Total 350 ml 950 ml 200 ml Blood Draw 300.00 ml # Bowel Movements 0 0 0 Objective Remarks GENERAL: Well-nourished, well-developed patient in no apparent distress. CARDIOVASCULAR: Tachycardic rate and regular rhythm. RESPIRATORY: Limited exam. Clear to auscultation. GASTROINTESTINAL: Abdomen soft, non-tender, nondistended. NEUROLOGICAL: Awake and alert, but nonverbal. 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 S/P barium swallow. Patient with severe dysphagia. GI consulted and PEG tube was placed Dietary recommending Glucerna 1.0 at 75 mL's an hour Suction oral secretions as needed. C/O Left forearm pain over volar aspect D/C IV Monitor for improvement Sacral partial skin loss. Left upper back and medial antecubital skin tear wave specialty bed as patient is at risk of having pressure related ulcers. Wound care was consulted. Apply skin barrier cream. Santyl and dry cover to change daily over coccyx wound per central control room operator Sepsis symptoms, resolved Full workup was performed to include urinalysis, blood cultures, lumbar puncture, chest x-ray without any initial signs of sepsis Infectious disease was consulted and did full evaluation the patient and recommended that his symptoms was from noninfectious source, infectious disease has signed off Patient did have one urine culture of Daphney parapsilosis, was treated with fluconazole for 10 days Neuro-Behcet, chronic No new changes on imaging. Patient followed by neurology. Aphasic at baseline. If neuro status worsening, advised starting steroid. Follow up with neuro. Continue PT/OT Sinus tachycardia: EKG with sinus tachycardia. Continue Atenolol 25 mg daily, monitor BP. HR again elevated at 135 this morning prior to atenolol administration. If persists, will likely need to increase atenolol provided can support BP. TSH, free T3 and free T4 all are within normal limits Mood disorder Patient was evaluated by psychiatrist Psychiatrist recommended Prozac Diabetes Glucose well controlled Discontinue Accu-Cheks and sliding scale insulin DVT Prophylaxis: Lovenox, TEDs/SCDs. Discharge Planning Case management for discharge planning. Has been referred to an declined at several SNFs. Patient will need LTC, difficult to place, has [id number] Medicaid, no local facility to accept. It appears as if no one has been able to contact any family member concerning this patient's care, that appears to be a significant social issue with family, guardianship, placement. Attending Statement Patient seen. Agree with above. Problem Qualifiers (1) UTI (urinary tract infection): Qualified Code: N39.0 - Urinary tract infection without hematuria, site unspecified Mari Talamantes Sep 16, 2016 14:34 Ede Pablo MD Sep 16, 2016 19:16
[2016-09-16 20:00] VITALS: BP 112/83; PULSE 128; RESP 20; TEMP 100.6; O2SAT 98
[2016-09-17 07:15] VITALS: BP 108/88; PULSE 146; RESP 24; TEMP 100.9; O2SAT 95
[2016-09-17] MEDS: FAMOTIDINE 20 MG TAB PO SCH ×2 (08:13→21:31)
[2016-09-17] MEDS: FLUoxetine HCL 10 MG CAP PO SCH (08:13)
[2016-09-17] MEDS: ATENOLOL 25 MG TAB PO SCH (08:13)
[2016-09-17] MEDS: ACETAMINOPHEN 325 MG TAB PO PRN ×2 (08:14→16:04)
[2016-09-17] MEDS: ENOXAPARIN SODIUM 40 MG/0.4 ML SYRINGE SQ SCH (08:15)
[2016-09-17] MEDS: COLLAGENASE OINT 30 GM TUBE TOP SCH (08:15)
[2016-09-17 10:10] VITALS: TEMP 98.6
--- NOTE | 2016-09-17 10:34 | RADHPO ---
EXAM DATE/TIME: 09/17/2016 10:12 [facility] COMPARISON: CHEST SINGLE AP, September 06, 2016, 17:34. INDICATIONS : Shortness of breath. MEDICAL HISTORY : Diabetes mellitus type II. Hypercholesterolemia. Hypertension. SURGICAL HISTORY : None. ENCOUNTER: Subsequent ACUITY: 1 month PAIN SCORE: Non-responsive. LOCATION: Bilateral chest FINDINGS: A single view of the chest demonstrates the lungs to be symmetrically aerated without evidence of mas s, infiltrate or effusion. The cardiomediastinal contours are unremarkable. Osseous structures are intact. CONCLUSION: Normal examination. Ronna Lucia MD on September 17, 2016 at 10:32 Board Certified Radiologist. This report was verified electronically.
[2016-09-17 10:54] LABS: AUTOMATED NEUTROPHIL # 20.7 TH/MM3 (1.8-7.7); BASOPHIL # 0.6 TH/MM3 (0-0.2); BASOPHIL % 2.5 % (0.0-2.0); EOSINOPHIL % 0.2 % (0.0-4.0); HEMATOCRIT 38.7 % (39.0-51.0); HEMOGLOBIN 12.8 GM/DL (13.0-17.0); LYMPH % 7.3 % (9.0-44.0); LYMPHOCYTE # 1.7 TH/MM3 (1.0-4.8); MEAN CELL VOLUME 85.4 FL (80.0-100.0); MEAN CORPUSCULAR HEMOGLOBIN 28.3 PG (27.0-34.0); MEAN CORPUSCULAR HGB CONC 33.1 % (32.0-36.0); MEAN PLATELET VOLUME 8.5 FL (7.0-11.0); MONO % 3.5 % (0.0-8.0); MONOCYTE # 0.8 TH/MM3 (0-0.9); NEUT % 86.5 % (16.0-70.0); PLATELET COUNT 698 TH/MM3 (150-450); RED BLOOD COUNT 4.53 MIL/MM3 (4.50-5.90); RED CELL DISTRIBUTION WIDTH 15.6 % (11.6-17.2); WHITE BLOOD COUNT 23.8 TH/MM3 (4.0-11.0)
[2016-09-17 11:04] LABS: BICARBONATE 28.4 MEQ/L (21.0-32.0); CALCIUM 10.4 MG/DL (8.5-10.1)
[2016-09-17 11:08] LABS: CREATININE 1.1 MG/DL (0.60-1.30)
[2016-09-17 11:26] LABS: BANDS 2 % (0-6); LYMPHOCYTES 8 % (9-44); MONOCYTES 4 % (0-8); NEUTROPHIL # MANUAL DIFF 20.9 TH/MM3 (1.8-7.7); POLYS (SEG NEUTROPHILS) 86 % (16-70)
--- NOTE | 2016-09-17 12:30 | HHI.PR ---
Subjective Remarks Follow-up for sepsis, Neuro-Behcet's syndrome. Patient has had fevers starting last night. Patient admits to feeling fevers/chills earlier. He denies any chest pain, cough, or shortness of breath. The nurse states he had a formed bowel movement and denies patient having any vomiting or diarrhea. Objective Vitals Vital Signs Date Time Temp Pulse Resp B/P Pulse Ox O2 Delivery O2 Flow Rate FiO2 09/17/16 10:10 20 09/17/16 10:10 98.6 09/17/16 07:15 100.9 146 24 108/88 95 09/16/16 20:00 100.6 128 20 112/83 98 I/O 09/16/16 09/16/16 09/16/16 09/17/16 09/17/16 09/17/16 07:00 15:00 23:00 07:00 15:00 23:00 Intake Total 0 ml 1160 ml 900 ml Output Total 200 ml 350 ml 300 ml 200 ml Balance -200 ml -350 ml 860 ml 700 ml Intake Oral 0 ml Tube Feeding 900 ml 900 ml Other 260 ml Output Urine Total 200 ml 350 ml 300 ml 200 ml # Bowel Movements 0 0 0 Result Diagram: 09/17/16 1035 09/17/16 1035 Imaging Last Impressions Chest X-Ray 09/17/16 1002 Signed Impressions: Service Date/Time: Saturday, September 17, 2016 10:12 - CONCLUSION: Normal examination. Ronna Lucia MD Renal Ultrasound 08/28/16 0000 Signed Impressions: Service Date/Time: Sunday, August 28, 2016 20:03 - CONCLUSION: Mild increased echotexture of both kidneys. Baldev Vu MD Upper Extremity Ultrasound 08/19/16 0000 Signed Impressions: Service Date/Time: Friday, August 19, 2016 22:32 - CONCLUSION: Left cephalic vein occlusive thrombus noted in the antecubital fossa. Baldev Vu MD Lumbar Puncture Fluoroscopy 08/17/16 0000 Signed Impressions: Service Date/Time: Wednesday, August 17, 2016 12:26 - CONCLUSION: Uncomplicated fluoroscopically guided lumbar puncture. Vishal Beckford Jr., MD Brain MRI 08/17/16 0000 Signed Impressions: Service Date/Time: Wednesday, August 17, 2016 13:28 - CONCLUSION: Remote long-standing areas of abnormality in the brainstem and middle cerebellar peduncle consistent with remote infarcts or contusion. No acute intracranial abnormality. Chacho Bright MD Abdomen X-Ray 08/17/16 0000 Signed Impressions: Service Date/Time: Wednesday, August 17, 2016 13:02 - CONCLUSION: No evidence of obstruction. No MRI incompatible foreign body is identified. Chacho Bright MD Head CT 08/16/16 0000 Signed Impressions: Service Date/Time: Tuesday, August 16, 2016 09:55 - CONCLUSION: Chronic ischemic changes left frontal lobe possibly from evidence of previous ventriculostomy placement, unchanged. No acute intracranial abnormality. Gen Potter MD Modified Barium Swallow 08/15/16 0000 Signed Impressions: Service Date/Time: Monday, August 15, 2016 00:00 - CONCLUSION: See report above and speech pathology report Chacho Bright MD Objective Remarks GENERAL: Well-nourished, well-developed patient in no apparent distress. ENT: No audible secretions. CARDIOVASCULAR: Tachycardic rate and regular rhythm. RESPIRATORY: Limited exam. Clear to auscultation bilaterally. GASTROINTESTINAL: Abdomen soft, non-tender, nondistended. NEUROLOGICAL: Awake and alert, nods head to questions, but nonverbal. 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 Heart rate 146. Suspected source of infection possibly GI as patient has a PEG tube present. -CBC with elevated white blood cell count 23.8 with 86% neutrophils. AST and ALT very mildly elevated. -Lactic acid normal. -UA personally interpreted with 30 protein and a occult calcium oxalate crystals , but no evidence of infection. -Chest x-ray personally interpreted no acute disease noted. -Blood cultures 2 pending. -CT abdomen and pelvis with oral and IV contrast ordered. -Patient with temp of 101.8 this afternoon -IVF -IV Zosyn started for broad coverage -Telemetry. Patient to be moved to 3rd floor for closer monitoring. -I was later informed by nurse that IV access cannot be established. Vascular access has been consulted. -Repeat am CBC and CMP. 09/17 Prerenal azotemia: BMP today reviewed with BUN/creatinine of 29/1.10. -Patient started on IVNS -Repeat am labs Decreased oral intake and dysphagia on initial presentation Speech therapy following intermittently. S/P barium swallow. Patient with severe dysphagia. GI consulted and PEG tube was placed Dietary recommending Glucerna 1.0 at 75 mL's an hour Suction oral secretions as needed. C/O Left forearm pain over volar aspect D/C IV Monitor for improvement Sacral partial skin loss. Left upper back and medial antecubital skin tear wave specialty bed as patient is at risk of having pressure related ulcers. Wound care was consulted. Apply skin barrier cream. Santyl and dry cover to change daily over coccyx wound per hairspring inspector Neuro-Behcet, stalin No new changes on imaging. Patient followed by neurology. Aphasic at baseline. If neuro status worsening, advised starting steroid. Follow up with neuro. Continue PT/OT Sinus tachycardia: EKG with sinus tachycardia. Continue Atenolol 25 mg daily, monitor BP. TSH, free T3 and free T4 all are within normal limits Mood disorder Patient was evaluated by psychiatrist Psychiatrist recommended Prozac Diabetes Glucose well controlled Discontinue Accu-Cheks and sliding scale insulin DVT Prophylaxis: Lovenox, TEDs/SCDs. Discharge Planning Case management for discharge planning. Has been referred to an declined at several SNFs. Patient will need LTC, difficult to place, has [id number] Medicaid, no local facility to accept. It appears as if no one has been able to contact any family member concerning this patient's care, that appears to be a significant social issue with family, guardianship, placement. 09/15/16: security operations manager spoke with territory account representative at [facility] and rehabilitation and requested them to evaluate patient for long-term placement. Attending Statement Patient seen. Agree with above. He was transferred to telemetry floor for closer monitoring. Follow labs, imaging, temp. Problem Qualifiers (1) UTI (urinary tract infection): Qualified Code: N39.0 - Urinary tract infection without hematuria, site unspecified Mari Talamantes Sep 17, 2016 12:30 Ede Pablo MD Sep 18, 2016 07:27
[2016-09-17 13:27] LABS: BILIRUBIN, URINE NEG (NEG); BLOOD, URINE NEG (NEG); GLUCOSE,URINE NEG (NEG); KETONE, URINE NEG (NEG); NITRITE,URINE NEG (NEG); PH, URINE 5.5 (5.0-8.5); URINE LEUKOCYTE ESTERASE NEG (NEG)
[2016-09-17 13:49] LABS: RBC, URINE 0-3 /hpf (0-3); SQUAMOUS EPITHELIAL CELL URINE 0-5 /hpf (0-5); URINE COLOR YELLOW (YELLW/STRAW)
[2016-09-17 13:50] LABS: AMORPHOUS SEDIMENT, URINE FEW; CALCIUM OXALATE CRYSTALS,URINE OCC /hpf
[2016-09-17 16:02] VITALS: PULSE 132; RESP 20; TEMP 101.8; O2SAT 98
[2016-09-17 17:00] VITALS: TEMP 100.9
[2016-09-17 17:04] LABS: ALBUMIN 3.2 GM/DL (3.4-5.0)
[2016-09-17 17:07] LABS: DIRECT BILIRUBIN ADULT 0.1 MG/DL (0.0-0.2)
[2016-09-17 17:09] LABS: INDIRECT BILIRUBIN 0.3 MG/DL (0.0-0.8); TOTAL BILIRUBIN ADULT 0.4 MG/DL (0.2-1.0); TOTAL PROTEIN 9.3 GM/DL (6.4-8.2)
[2016-09-17 20:04] VITALS: PULSE 139
[2016-09-17 20:17] VITALS: BP 118/89; PULSE 135; RESP 12; TEMP 98.9; O2SAT 92
[2016-09-17] MEDS: SODIUM CHLOR 0.9% 1000 ML INJ 1,000 ML IV SCH (20:25)
[2016-09-17] MEDS: PIPERACIL-TAZO 3.375 GM PREMIX 50 ML IV SCH ×2 (20:32→21:30)
[2016-09-18] VITALS (9 sets, daily range): BP systolic 82–130; BP diastolic 64–90; PULSE 114–124; RESP 16–22; TEMP 97.3–99.9; O2SAT 93–97
--- NOTE | 2016-09-18 00:16 | RADHPO ---
EXAM DATE/TIME: 09/17/2016 23:35 [facility] COMPARISON: CT ABDOMEN & PELVIS W CONTRAST, December 24, 2014, 9:29. INDICATIONS : Fever. IV CONTRAST: 95 cc Omnipaque 350 (iohexol) IV ORAL CONTRAST: Prescribed oral contrast ingested. RADIATION DOSE: 9.5 CTDIvol (mGy) MEDICAL HISTORY : Cerebrovascular disease. Hypertension. SURGICAL HISTORY : Peg tube. ENCOUNTER: Initial ACUITY: 1 day PAIN SCALE: 0/10 LOCATION: Abdomen. TECHNIQUE: Volumetric scanning of the abdomen and pelvis was performed. Using automated exposure control and ad justment of the mA and/or kV according to patient size, radiation dose was kept as low as reasonably achievable to obtain optimal diagnostic quality images. FINDINGS: LOWER LUNGS: The visualized lower lungs are clear. LIVER: Homogeneous density without lesion. There is no dilation of the biliary tree. No calcified gallston es. SPLEEN: Normal size without lesion. PANCREAS: Within normal limits. KIDNEYS: Normal in size and shape. There is no mass, stone or hydronephrosis. A 1 cm simple cyst involving th e upper pole of the left kidney. ADRENAL GLANDS: Within normal limits. VASCULAR: There is no aortic aneurysm. BOWEL/MESENTERY: The stomach, small bowel, and colon demonstrate no acute abnormality. A significant stool burden seen throughout normal caliber colon. There is no free intraperitoneal air or fluid. Gastrostomy tube no jonathan. ABDOMINAL WALL: Within normal limits. RETROPERITONEUM: There is no lymphadenopathy. BLADDER: No wall thickening or mass. REPRODUCTIVE: Within normal limits. INGUINAL: There is no lymphadenopathy or hernia. MUSCULOSKELETAL: Within normal limits for patient age. CONCLUSION: 1. Constipation. 2. No acute abnormality. Vishal Beckford Jr., MD on September 18, 2016 at 0:09 Board Certified Radiologist. This report was verified electronically.
[2016-09-18] MEDS: SODIUM CHLOR 0.9% 1000 ML INJ 1,000 ML IV SCH ×3 (02:55→21:14)
[2016-09-18] MEDS: PIPERACIL-TAZO 3.375 GM PREMIX 50 ML IV SCH ×4 (05:04→21:12)
[2016-09-18 07:30] LABS: CHLORIDE 106 MEQ/L (98-107); SODIUM (NA) 143 MEQ/L (136-145)
[2016-09-18 07:35] LABS: ALBUMIN 2.8 GM/DL (3.4-5.0); CALCIUM 9.7 MG/DL (8.5-10.1)
[2016-09-18 07:36] LABS: BICARBONATE 28.6 MEQ/L (21.0-32.0); BLOOD UREA NITROGEN 26 MG/DL (7-18); GLUCOSE,RANDOM 168 MG/DL (74-106)
[2016-09-18 07:39] LABS: ALT (GPT) 78 U/L (12-78); AST (GOT) 45 U/L (15-37); GLOMERULAR FILTRATION RATE 88 ML/MIN (>89)
[2016-09-18 07:40] LABS: TOTAL BILIRUBIN ADULT 0.6 MG/DL (0.2-1.0); TOTAL PROTEIN 8.5 GM/DL (6.4-8.2)
[2016-09-18 07:41] LABS: ALKALINE PHOSPHATASE 75 U/L (45-117)
[2016-09-18 07:42] LABS: BASOPHIL # 0.1 TH/MM3 (0-0.2); BASOPHIL % 0.4 % (0.0-2.0); EOSINOPHIL % 0.1 % (0.0-4.0); LYMPH % 9.6 % (9.0-44.0); LYMPHOCYTE # 2.2 TH/MM3 (1.0-4.8); MEAN CELL VOLUME 86.7 FL (80.0-100.0); MEAN CORPUSCULAR HEMOGLOBIN 27.5 PG (27.0-34.0); MEAN CORPUSCULAR HGB CONC 31.7 % (32.0-36.0); MEAN PLATELET VOLUME 8.9 FL (7.0-11.0); MONO % 5.3 % (0.0-8.0); MONOCYTE # 1.2 TH/MM3 (0-0.9); NEUT % 84.6 % (16.0-70.0); PLATELET COUNT 606 TH/MM3 (150-450); RED BLOOD COUNT 4.38 MIL/MM3 (4.50-5.90); RED CELL DISTRIBUTION WIDTH 16.4 % (11.6-17.2); WHITE BLOOD COUNT 22.5 TH/MM3 (4.0-11.0)
[2016-09-18] MEDS: BISACODYL 10 MG SUPP RECTAL ONE ×2 (09:56→11:00)
[2016-09-18] MEDS: ATENOLOL 25 MG TAB PO SCH (09:56)
[2016-09-18] MEDS: FAMOTIDINE 20 MG TAB PO SCH ×2 (09:56→21:13)
[2016-09-18] MEDS: FLUoxetine HCL 10 MG CAP PO SCH (09:56)
[2016-09-18] MEDS: ENOXAPARIN SODIUM 40 MG/0.4 ML SYRINGE SQ SCH (09:57)
[2016-09-18] MEDS: COLLAGENASE OINT 30 GM TUBE TOP SCH (09:57)
--- NOTE | 2016-09-18 10:43 | HHI.PR ---
Subjective Remarks Follow-up for sepsis, Behcet's syndrome. Nurse states patient had a large soft bowel movement this morning. States he has a stage II pressure ulcer. Patient denies any pain or SOB. Objective Vitals Vital Signs Date Time Temp Pulse Resp B/P Pulse Ox O2 Delivery O2 Flow Rate FiO2 09/18/16 09:30 118 18 105/79 09/18/16 08:00 99.9 115 18 82/64 95 09/18/16 05:00 97.7 120 22 130/69 96 09/18/16 00:50 98.8 121 16 106/90 93 09/17/16 20:17 98.9 135 12 118/89 92 09/17/16 20:04 139 09/17/16 17:04 20 09/17/16 17:00 100.9 09/17/16 16:02 101.8 132 20 98 I/O 09/17/16 09/17/16 09/17/16 09/18/16 09/18/16 09/18/16 06:59 14:59 22:59 06:59 14:59 22:59 Intake Total 900 ml 1085 ml 2077 ml Output Total 200 ml 400 ml 300 ml 1 ml Balance 700 ml -400 ml 785 ml 2077 ml -1 ml IV Total 662 ml Tube Feeding 900 ml 825 ml 1265 ml Other 260 ml 150 ml Output Urine Total 200 ml 400 ml 300 ml Stool Total 1 ml # Bowel Movements 0 1 Result Diagram: 09/18/16 0700 09/18/16 0700 Objective Remarks GENERAL: Thin patient in no apparent distress. CARDIOVASCULAR: Tachycardic rate and regular rhythm. RESPIRATORY: Limited exam. Only transmitted upper respiratory sounds on the right. Otherwise clear. GASTROINTESTINAL: Abdomen non-tender, nondistended. MUSCULOSKELETAL: Atrophied legs. NEUROLOGICAL: Awake and alert, nods head to questions, but nonverbal. 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 Heart rate 146. Suspected source of infection was GI as patient has PEG tube although CT abd/pel negative for infection. -CBC with elevated white blood cell count 23.8-->22.5 with elevated neutrophils. AST and ALT very mildly elevated yesterday but improved today. -Lactic acid normal. -UA with 30 protein and a occult calcium oxalate crystals, but no evidence of infection. -Chest x-ray with no acute disease noted. -CT abdomen and pelvis with oral and IV contrast with large amount of stool; no other acute abnormalities. -Blood cultures 2 pending. -IV Zosyn was started for broad coverage -Continue IVF -Telemetry reviewed with tachycardia 120. -09/18: No infection yet evident. Axillary temp 99.9 at 0800 but only low grade at 98.5 at ~1100 without Tylenol use. Repeat am CBC with diff. I spoke with ID , Dr. Casarez who will evaluate patient. Prerenal azotemia: Mildly improved. BUN 29-->26. -Continue IV NS -Repeat am BMP Decreased oral intake and dysphagia on initial presentation Speech therapy following intermittently. S/P barium swallow. Patient with severe dysphagia. GI consulted and PEG tube was placed Dietary recommending Glucerna 1.0 at 75 mL's an hour Suction oral secretions as needed. C/O Left forearm pain over volar aspect D/C IV Monitor for improvement Sacral partial skin loss. Left upper back and medial antecubital skin tear wave specialty bed as patient is at risk of having pressure related ulcers. Wound care was consulted. Apply skin barrier cream. Cleanse wound to coccyx with normal saline and apply Santyl ointment luis thick coverage and cover with dry cover dressing, change daily. Turn patient every 2 hours. Neuro-Behcet, chronic No new changes on imaging. Patient followed by neurology. Aphasic at baseline. If neuro status worsening, advised starting steroid. Follow up with neuro. Continue PT/OT Sinus tachycardia: EKG with sinus tachycardia. Continue Atenolol 25 mg daily, monitor BP. TSH, free T3 and free T4 all are within normal limits Mood disorder Patient was evaluated by psychiatrist Psychiatrist recommended Prozac Diabetes Glucose well controlled Discontinue Accu-Cheks and sliding scale insulin 09/18: Constipation evident on 09/17 CT abdomen but patient had very large soft BM this morning per RN. Will hold off on Dulcolax which was ordered. DVT Prophylaxis: Lovenox, TEDs/SCDs. Written by Mari Talamantes PA-C acting as scribe for Dr. Pablo on 09/18/16 at 1025. All or portions of this note were transcribed by scribe Mari Talamantes PA-C. I , Dr. Ede Pablo personally performed the history, physical exam, and medical decision making; and confirmed the accuracy of the information in the transcribed note. Authenticated by Dr. Ede Pablo on 09/18/16 at 12:55. Discharge Planning Case management for discharge planning. Has been referred to an declined at several SNFs. Patient will need LTC, difficult to place, has [id number] Medicaid, no local facility to accept. It appears as if no one has been able to contact any family member concerning this patient's care, that appears to be a significant social issue with family, guardianship, placement. 09/15/16: manager private spoke with energy conservation representative at [facility] rehabilitation and requested them to evaluate patient for long-term placement. Problem Qualifiers (1) UTI (urinary tract infection): Qualified Code: N39.0 - Urinary tract infection without hematuria, site unspecified Mari Talamantes Sep 18, 2016 10:43 Ede Pablo MD Sep 18, 2016 12:55
--- NOTE | 2016-09-18 12:27 | HHI.IDPN ---
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 ID reconsulted because of fevers and Rising WBC count Patient unable to give any history. Per nurse more awake today. Antibiotics Zosyn IV- restarted yesterday Vanco IV stopped on 09/08 Lines Line sites with no e.o infection Past Medical History reviewed Allergies: Coded Allergies: No Known Allergies (Unverified , 08/17/16) Objective . Vital Signs Date Time Temp Pulse Resp B/P Pulse Ox O2 Delivery O2 Flow Rate FiO2 09/18/16 09:30 118 18 105/79 09/18/16 08:00 99.9 115 18 82/64 95 09/18/16 05:00 97.7 120 22 130/69 96 09/18/16 00:50 98.8 121 16 106/90 93 09/17/16 20:17 98.9 135 12 118/89 92 09/17/16 20:04 139 09/17/16 17:04 20 09/17/16 17:00 100.9 09/17/16 16:02 101.8 132 20 98 09/17/16 09/17/16 09/18/16 15:00 23:00 07:00 Intake Total 1085 ml 2077 ml Output Total 400 ml 300 ml Balance -400 ml 785 ml 2077 ml IV Total 662 ml Tube Feeding 825 ml 1265 ml Other 260 ml 150 ml Output Urine Total 400 ml 300 ml # Bowel Movements 1 . Laboratory Tests Test 09/17/16 09/18/16 10:35 07:00 White Blood Count 23.8 TH/MM3 22.5 TH/MM3 Red Blood Count 4.53 MIL/MM3 4.38 MIL/MM3 Hemoglobin 12.8 GM/DL 12.0 GM/DL Hematocrit 38.7 % 38.0 % Mean Corpuscular Volume 85.4 FL 86.7 FL Mean Corpuscular Hemoglobin 28.3 PG 27.5 PG Mean Corpuscular Hemoglobin 33.1 % 31.7 % Concent Red Cell Distribution Width 15.6 % 16.4 % Platelet Count 698 TH/MM3 606 TH/MM3 Mean Platelet Volume 8.5 FL 8.9 FL Neutrophils (%) (Auto) 86.5 % 84.6 % Lymphocytes (%) (Auto) 7.3 % 9.6 % Monocytes (%) (Auto) 3.5 % 5.3 % Eosinophils (%) (Auto) 0.2 % 0.1 % Basophils (%) (Auto) 2.5 % 0.4 % Neutrophils # (Auto) 20.7 TH/MM3 19.0 TH/MM3 Lymphocytes # (Auto) 1.7 TH/MM3 2.2 TH/MM3 Monocytes # (Auto) 0.8 TH/MM3 1.2 TH/MM3 Eosinophils # (Auto) 0.0 TH/MM3 0.0 TH/MM3 Basophils # (Auto) 0.6 TH/MM3 0.1 TH/MM3 CBC Comment AUTO DIFF AUTO DIFF Differential Total Cells 100 Counted Neutrophils % (Manual) 86 % Band Neutrophils % 2 % Lymphocytes % 8 % Monocytes % 4 % Neutrophils # (Manual) 20.9 TH/MM3 Differential Comment FINAL DIFF AUTO DIFF MANUAL CONFIRMED Platelet Estimate HIGH Platelet Morphology Comment NORMAL Laboratory Tests Test 09/17/16 09/17/16 09/18/16 10:35 10:36 07:00 Sodium Level 143 MEQ/L 143 MEQ/L Potassium Level 4.2 MEQ/L 3.8 MEQ/L Chloride Level 104 MEQ/L 106 MEQ/L Carbon Dioxide Level 28.4 MEQ/L 28.6 MEQ/L Anion Gap 11 MEQ/L 8 MEQ/L Blood Urea Nitrogen 29 MG/DL 26 MG/DL Creatinine 1.10 MG/DL 1.10 MG/DL Estimat Glomerular Filtration 88 ML/MIN 88 ML/MIN Rate Random Glucose 151 MG/DL 168 MG/DL Lactic Acid Level 1.4 mmol/L Calcium Level 10.4 MG/DL 9.7 MG/DL Total Bilirubin 0.4 MG/DL 0.6 MG/DL Direct Bilirubin 0.1 MG/DL Indirect Bilirubin 0.3 MG/DL Aspartate Amino Transf 53 U/L 45 U/L (AST/SGOT) Alanine Aminotransferase 86 U/L 78 U/L (ALT/SGPT) Alkaline Phosphatase 84 U/L 75 U/L Total Protein 9.3 GM/DL 8.5 GM/DL Albumin 3.2 GM/DL 2.8 GM/DL Microbiology Date/Time Procedure Status Source Growth 09/17/16 10:25 Aerobic Blood Culture - Preliminary Resulted Blood Peripheral NO GROWTH IN 1 DAY 09/17/16 10:25 Anaerobic Blood Culture - Preliminary Resulted Blood Peripheral NO GROWTH IN 1 DAY 09/17/16 10:35 Aerobic Blood Culture - Preliminary Resulted Blood Peripheral NO GROWTH IN 1 DAY 09/17/16 10:35 Anaerobic Blood Culture - Preliminary Resulted Blood Peripheral NO GROWTH IN 1 DAY Imaging Last Impressions Lumbar Puncture Fluoroscopy 08/17/16 0000 Signed Impressions: Service Date/Time: Wednesday, August 17, 2016 12:26 - CONCLUSION: Uncomplicated fluoroscopically guided lumbar puncture. Vishal Beckford Jr., MD Brain MRI 08/17/16 0000 Signed Impressions: Service Date/Time: Wednesday, August 17, 2016 13:28 - CONCLUSION: Remote long-standing areas of abnormality in the brainstem and middle cerebellar peduncle consistent with remote infarcts or contusion. No acute intracranial abnormality. Chacho Bright MD Abdomen X-Ray 08/17/16 0000 Signed Impressions: Service Date/Time: Wednesday, August 17, 2016 13:02 - CONCLUSION: No evidence of obstruction. No MRI incompatible foreign body is identified. Chacho Bright MD Head CT 08/16/16 0000 Signed Impressions: Service Date/Time: Tuesday, August 16, 2016 09:55 - CONCLUSION: Chronic ischemic changes left frontal lobe possibly from evidence of previous ventriculostomy placement, unchanged. No acute intracranial abnormality. Gen Potter MD Chest X-Ray 08/15/16 1617 Signed Impressions: Service Date/Time: Monday, August 15, 2016 16:35 - CONCLUSION: No acute disease. No significant change has occurred. No significant change has occurred. Chacho Bright MD Modified Barium Swallow 08/15/16 0000 Signed Impressions: Service Date/Time: Monday, August 15, 2016 00:00 - CONCLUSION: See report above and speech pathology report Chacho Bright MD Physical Exam GENERAL: Poorly nourished, poorly-developed patient, in no apparent distress. SKIN: Old scars on arms. Stage 2 healing sacral decubitus- no sign of infection HEAD: Atraumatic. Normocephalic. No temporal or scalp tenderness. Mouth with frothy secretions EYES: Pupils equal round and reactive. Extraocular motions intact. No scleral icterus. No injection or drainage. ENT: Nose without bleeding, purulent drainage or septal hematoma. Throat without erythema, tonsillar hypertrophy or exudate. Uvula midline. Airway patent. NECK: Trachea midline. Supple, nontender, no meningeal signs. CARDIOVASCULAR: HS audible. No murmur. RESPIRATORY: Clear to auscultation. Breath sounds equal bilaterally. GASTROINTESTINAL: Abdomen soft, non-tender, nondistended. MUSCULOSKELETAL: Extremities without clubbing, cyanosis, or edema. Wasting and contractures NEUROLOGICAL: Awake and alert. Aphasic. LE weakness but able to flex both limbs minimally. Contractures noted. Psych: diff to assess, cooperative. IV line sites with no e.o infection. Assessment & Plan Diagnosis: (1) Neurologic type Behcet's syndrome (2) Fever Plan: Follow blood cultures Continue IV Zosyn- clinically improved (3) Leucocytosis Plan: Follow cultures and CBC Remarks Rachel Casarez MD Sep 18, 2016 12:27
[2016-09-19] VITALS (7 sets, daily range): BP systolic 101–123; BP diastolic 75–95; PULSE 106–132; RESP 16–20; TEMP 95.6–101.4; O2SAT 95–99
[2016-09-19] MEDS: PIPERACIL-TAZO 3.375 GM PREMIX 50 ML IV SCH ×4 (04:00→22:00)
[2016-09-19 06:29] LABS: AUTOMATED NEUTROPHIL # 18.6 TH/MM3 (1.8-7.7); BASOPHIL # 0.4 TH/MM3 (0-0.2); BASOPHIL % 1.8 % (0.0-2.0); HEMATOCRIT 33.9 % (39.0-51.0); LYMPH % 7.4 % (9.0-44.0); LYMPHOCYTE # 1.6 TH/MM3 (1.0-4.8); MEAN CELL VOLUME 85.8 FL (80.0-100.0); MEAN CORPUSCULAR HEMOGLOBIN 27.9 PG (27.0-34.0); MEAN CORPUSCULAR HGB CONC 32.5 % (32.0-36.0); MONO % 5.3 % (0.0-8.0); MONOCYTE # 1.1 TH/MM3 (0-0.9); NEUT % 85.5 % (16.0-70.0); PLATELET COUNT 487 TH/MM3 (150-450); RED BLOOD COUNT 3.95 MIL/MM3 (4.50-5.90); WHITE BLOOD COUNT 21.7 TH/MM3 (4.0-11.0)
[2016-09-19 06:39] LABS: CALCIUM 8.9 MG/DL (8.5-10.1)
[2016-09-19 06:40] LABS: BICARBONATE 26.5 MEQ/L (21.0-32.0)
[2016-09-19 06:43] LABS: CREATININE 0.97 MG/DL (0.60-1.30)
[2016-09-19] MEDS: ENOXAPARIN SODIUM 40 MG/0.4 ML SYRINGE SQ SCH (09:24)
[2016-09-19] MEDS: ATENOLOL 25 MG TAB PO SCH (09:24)
[2016-09-19] MEDS: FLUoxetine HCL 10 MG CAP PO SCH (09:24)
[2016-09-19] MEDS: FAMOTIDINE 20 MG TAB PO SCH ×2 (09:24→21:00)
[2016-09-19] MEDS: COLLAGENASE OINT 30 GM TUBE TOP SCH (09:26)
--- NOTE | 2016-09-19 09:39 | HHI.IDPN ---
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 Responds on calling out names Fevers better yesterday but febrile again today. Less secretions from mouth Antibiotics Zosyn IV- restarted yesterday Vanco IV stopped on 09/08 Lines Line sites with no e.o infection Past Medical History reviewed Allergies: Coded Allergies: No Known Allergies (Unverified , 08/17/16) Objective . Vital Signs Date Time Temp Pulse Resp B/P Pulse Ox O2 Delivery O2 Flow Rate FiO2 09/19/16 08:00 101.2 118 20 103/80 99 09/19/16 04:00 98.1 115 16 106/82 97 09/19/16 00:00 99.2 132 16 123/95 97 09/18/16 20:00 99.6 124 18 111/77 97 09/18/16 19:50 122 09/18/16 12:00 97.3 114 18 112/83 95 09/18/16 10:30 98.5 09/18/16 09/18/16 09/19/16 15:00 23:00 07:00 Intake Total 700 ml 1491 ml 1445 ml Output Total 1 ml 1300 ml 350 ml Balance 699 ml 191 ml 1095 ml IV Total 866 ml 665 ml Tube Feeding 600 ml 525 ml 705 ml Tube Irrigant 100 ml Other 100 ml 75 ml Output Urine Total 1300 ml 350 ml Stool Total 1 ml # Bowel Movements 1 2 . Laboratory Tests Test 09/17/16 09/18/16 09/19/16 10:35 07:00 06:10 White Blood Count 23.8 TH/MM3 22.5 TH/MM3 21.7 TH/MM3 Red Blood Count 4.53 MIL/MM3 4.38 MIL/MM3 3.95 MIL/MM3 Hemoglobin 12.8 GM/DL 12.0 GM/DL 11.0 GM/DL Hematocrit 38.7 % 38.0 % 33.9 % Mean Corpuscular Volume 85.4 FL 86.7 FL 85.8 FL Mean Corpuscular Hemoglobin 28.3 PG 27.5 PG 27.9 PG Mean Corpuscular Hemoglobin 33.1 % 31.7 % 32.5 % Concent Red Cell Distribution Width 15.6 % 16.4 % 16.0 % Platelet Count 698 TH/MM3 606 TH/MM3 487 TH/MM3 Mean Platelet Volume 8.5 FL 8.9 FL 9.0 FL Neutrophils (%) (Auto) 86.5 % 84.6 % 85.5 % Lymphocytes (%) (Auto) 7.3 % 9.6 % 7.4 % Monocytes (%) (Auto) 3.5 % 5.3 % 5.3 % Eosinophils (%) (Auto) 0.2 % 0.1 % 0.0 % Basophils (%) (Auto) 2.5 % 0.4 % 1.8 % Neutrophils # (Auto) 20.7 TH/MM3 19.0 TH/MM3 18.6 TH/MM3 Lymphocytes # (Auto) 1.7 TH/MM3 2.2 TH/MM3 1.6 TH/MM3 Monocytes # (Auto) 0.8 TH/MM3 1.2 TH/MM3 1.1 TH/MM3 Eosinophils # (Auto) 0.0 TH/MM3 0.0 TH/MM3 0.0 TH/MM3 Basophils # (Auto) 0.6 TH/MM3 0.1 TH/MM3 0.4 TH/MM3 CBC Comment AUTO DIFF AUTO DIFF AUTO DIFF Differential Total Cells 100 Counted Neutrophils % (Manual) 86 % Band Neutrophils % 2 % Lymphocytes % 8 % Monocytes % 4 % Neutrophils # (Manual) 20.9 TH/MM3 Differential Comment FINAL DIFF AUTO DIFF AUTO DIFF MANUAL CONFIRMED CONFIRMED Platelet Estimate HIGH Platelet Morphology Comment NORMAL Laboratory Tests Test 09/17/16 09/17/16 09/18/16 09/19/16 10:35 10:36 07:00 06:10 Sodium Level 143 MEQ/L 143 MEQ/L 145 MEQ/L Potassium Level 4.2 MEQ/L 3.8 MEQ/L 3.7 MEQ/L Chloride Level 104 MEQ/L 106 MEQ/L 110 MEQ/L Carbon Dioxide Level 28.4 MEQ/L 28.6 MEQ/L 26.5 MEQ/L Anion Gap 11 MEQ/L 8 MEQ/L 9 MEQ/L Blood Urea Nitrogen 29 MG/DL 26 MG/DL 23 MG/DL Creatinine 1.10 MG/DL 1.10 MG/DL 0.97 MG/DL Estimat Glomerular Filtration 88 ML/MIN 88 ML/MIN 102 ML/MIN Rate Random Glucose 151 MG/DL 168 MG/DL 174 MG/DL Lactic Acid Level 1.4 mmol/L Calcium Level 10.4 MG/DL 9.7 MG/DL 8.9 MG/DL Total Bilirubin 0.4 MG/DL 0.6 MG/DL Direct Bilirubin 0.1 MG/DL Indirect Bilirubin 0.3 MG/DL Aspartate Amino Transf 53 U/L 45 U/L (AST/SGOT) Alanine Aminotransferase 86 U/L 78 U/L (ALT/SGPT) Alkaline Phosphatase 84 U/L 75 U/L Total Protein 9.3 GM/DL 8.5 GM/DL Albumin 3.2 GM/DL 2.8 GM/DL Microbiology Date/Time Procedure Status Source Growth 09/17/16 10:25 Aerobic Blood Culture - Preliminary Resulted Blood Peripheral NO GROWTH IN 1 DAY 09/17/16 10:25 Anaerobic Blood Culture - Preliminary Resulted Blood Peripheral NO GROWTH IN 1 DAY 09/17/16 10:35 Aerobic Blood Culture - Preliminary Resulted Blood Peripheral NO GROWTH IN 1 DAY 09/17/16 10:35 Anaerobic Blood Culture - Preliminary Resulted Blood Peripheral NO GROWTH IN 1 DAY Imaging Last Impressions Lumbar Puncture Fluoroscopy 08/17/16 0000 Signed Impressions: Service Date/Time: Wednesday, August 17, 2016 12:26 - CONCLUSION: Uncomplicated fluoroscopically guided lumbar puncture. Vishal Beckford Jr., MD Brain MRI 08/17/16 0000 Signed Impressions: Service Date/Time: Wednesday, August 17, 2016 13:28 - CONCLUSION: Remote long-standing areas of abnormality in the brainstem and middle cerebellar peduncle consistent with remote infarcts or contusion. No acute intracranial abnormality. Chacho Bright MD Abdomen X-Ray 08/17/16 0000 Signed Impressions: Service Date/Time: Wednesday, August 17, 2016 13:02 - CONCLUSION: No evidence of obstruction. No MRI incompatible foreign body is identified. Chacho Bright MD Head CT 08/16/16 0000 Signed Impressions: Service Date/Time: Tuesday, August 16, 2016 09:55 - CONCLUSION: Chronic ischemic changes left frontal lobe possibly from evidence of previous ventriculostomy placement, unchanged. No acute intracranial abnormality. Gen Potter MD Chest X-Ray 08/15/16 1617 Signed Impressions: Service Date/Time: Monday, August 15, 2016 16:35 - CONCLUSION: No acute disease. No significant change has occurred. No significant change has occurred. Chacho Bright MD Modified Barium Swallow 08/15/16 0000 Signed Impressions: Service Date/Time: Monday, August 15, 2016 00:00 - CONCLUSION: See report above and speech pathology report Chacho Bright MD Physical Exam GENERAL: Poorly nourished, poorly-developed patient, in no apparent distress. SKIN: Old scars on arms. Stage 2 healing sacral decubitus- no sign of infection HEAD: Atraumatic. Normocephalic. No temporal or scalp tenderness. Mouth with frothy secretions EYES: Pupils equal round and reactive. Extraocular motions intact. No scleral icterus. No injection or drainage. ENT: Nose without bleeding, purulent drainage or septal hematoma. Throat without erythema, tonsillar hypertrophy or exudate. Uvula midline. Airway patent. NECK: Trachea midline. Supple, nontender, no meningeal signs. CARDIOVASCULAR: HS audible. No murmur. RESPIRATORY:. Breath sounds equal bilaterally. Some rhonchi present GASTROINTESTINAL: Abdomen soft, non-tender, nondistended. MUSCULOSKELETAL: Extremities without clubbing, cyanosis, or edema. Wasting and contractures NEUROLOGICAL: Awake and alert. Aphasic. LE weakness but able to flex both limbs minimally. Contractures noted. Psych: diff to assess, cooperative. IV line sites with no e.o infection. Assessment & Plan Diagnosis: (1) Neurologic type Behcet's syndrome (2) Fever Plan: Follow blood cultures- so far negative Continue IV Zosyn for now (3) Leucocytosis Plan: Follow cultures WBC minimally improved. Remarks Rachel Casarze MD Sep 19, 2016 09:39
[2016-09-19] MEDS: ACETAMINOPHEN 325 MG TAB PO PRN (14:10)
[2016-09-19] MEDS: SODIUM CHLOR 0.9% 1000 ML INJ 1,000 ML IV SCH (14:10)
--- NOTE | 2016-09-19 18:55 | HHI.PR ---
Subjective Remarks Late entry. Patient evaluated at 1340. Follow-up for sepsis. Discussed with RN who states patient required additional Atenolol last night due to tachycardia. Patient nods his head to answer questions. Denies any shortness of breath. Continues to be febrile. Objective Vitals Vital Signs Date Time Temp Pulse Resp B/P Pulse Ox O2 Delivery O2 Flow Rate FiO2 09/19/16 15:53 100.7 109 20 106/82 98 09/19/16 12:00 101.4 106 20 101/75 95 09/19/16 08:00 101.2 118 20 103/80 99 09/19/16 08:00 112 09/19/16 04:00 98.1 115 16 106/82 97 09/19/16 00:00 99.2 132 16 123/95 97 09/18/16 20:00 99.6 124 18 111/77 97 09/18/16 19:50 122 I/O 09/18/16 09/18/16 09/18/16 09/19/16 09/19/16 09/19/16 07:00 15:00 23:00 07:00 15:00 23:00 Intake Total 2077 ml 700 ml 1491 ml 1445 ml 1336 ml Output Total 1 ml 1300 ml 350 ml 600 ml Balance 2077 ml 699 ml 191 ml 1095 ml 736 ml Intake Oral 0 ml IV Total 662 ml 866 ml 665 ml 647 ml Tube Feeding 1265 ml 600 ml 525 ml 705 ml 689 ml Tube Irrigant 100 ml Other 150 ml 100 ml 75 ml Output Urine Total 1300 ml 350 ml 600 ml Stool Total 1 ml # Bowel Movements 1 2 1 Result Diagram: 09/19/16 0610 09/19/16 0610 Imaging Last Impressions Chest X-Ray 09/17/16 1002 Signed Impressions: Service Date/Time: Saturday, September 17, 2016 10:12 - CONCLUSION: Normal examination. Ronna Luica MD Abdomen/Pelvis CT 09/17/16 0000 Signed Impressions: Service Date/Time: Saturday, September 17, 2016 23:35 - CONCLUSION: 1. Constipation. 2. No acute abnormality. Vishal Beckford Jr., MD Renal Ultrasound 08/28/16 0000 Signed Impressions: Service Date/Time: Sunday, August 28, 2016 20:03 - CONCLUSION: Mild increased echotexture of both kidneys. Baldev Vu MD Upper Extremity Ultrasound 08/19/16 Signed Impressions: Service Date/Time: Friday, August 19, 2016 22:32 - CONCLUSION: Left cephalic vein occlusive thrombus noted in the antecubital fossa. Baldev Vu MD Lumbar Puncture Fluoroscopy 08/17/16 Signed Impressions: Service Date/Time: Wednesday, August 17, 2016 12:26 - CONCLUSION: Uncomplicated fluoroscopically guided lumbar puncture. Vishal Beckford Jr., MD Brain MRI 08/17/16 Signed Impressions: Service Date/Time: Wednesday, August 17, 2016 13:28 - CONCLUSION: Remote long-standing areas of abnormality in the brainstem and middle cerebellar peduncle consistent with remote infarcts or contusion. No acute intracranial abnormality. Chacho Bright MD Abdomen X-Ray 08/17/16 Signed Impressions: Service Date/Time: Wednesday, August 17, 2016 13:02 - CONCLUSION: No evidence of obstruction. No MRI incompatible foreign body is identified. Chacho Bright MD Head CT 08/16/16 Signed Impressions: Service Date/Time: Tuesday, August 16, 2016 09:55 - CONCLUSION: Chronic ischemic changes left frontal lobe possibly from evidence of previous ventriculostomy placement, unchanged. No acute intracranial abnormality. Gen Potter MD Modified Barium Swallow 08/15/16 Signed Impressions: Service Date/Time: Monday, August 15, 2016 00:00 - CONCLUSION: See report above and speech pathology report Chacho Bright MD Objective Remarks GENERAL: Thin patient in no apparent distress. CARDIOVASCULAR: Tachycardic rate and regular rhythm. RESPIRATORY: CTAB. GASTROINTESTINAL: Abdomen soft, non-tender, nondistended. NEUROLOGICAL: Awake and alert, nods head to questions, but nonverbal. Urine yellow with good output in catheter bag. Urinary Catheter: No Vascular Central Line Catheter: No A/P Problem List: (1) Sepsis ICD Code: A41.9 Status: Acute (2) UTI (urinary tract infection) ICD Code: N39.0 Status: Resolved (3) Altered mental status ICD Code: R41.82 Status: Resolved (4) 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 (5) Impaired mobility and activities of daily living ICD Code: Z74.09 Status: Acute Assessment and Plan Sepsis symptoms: Full workup was performed to include urinalysis, blood cultures, lumbar puncture, chest x-ray without any initial signs of sepsis Infectious disease was consulted and did full evaluation the patient and recommended that his symptoms was from noninfectious source, infectious disease has signed off Patient did have one urine culture of Daphney parapsilosis, was treated with fluconazole for 10 days Suspected sepsis: Fevers starting again on 09/16 went up to 101.8 on 09/17. Heart rate 146. Suspected source of infection was GI as patient has PEG tube although CT abd/pel negative for infection. -CBC with elevated white blood cell count 23.8-->21.7 with elevated neutrophils. AST and ALT very mildly elevated yesterday but improved on 09/18. -Lactic acid normal. -UA with 30 protein and a occult calcium oxalate crystals, but no evidence of infection. -Chest x-ray with no acute disease noted. -CT abdomen and pelvis with oral and IV contrast with large amount of stool; no other acute abnormalities. -Blood cultures NGTD -Continue IVF -Continue telemetry -09/19: Still febrile. RN advised to give Tylenol. ID following. Continue IV Zosyn. Monitor clinically for signs of deterioration. Repeat am CBC. Prerenal azotemia: Improved. BUN 29-->23. -Continue IV NS -Repeat am BMP Sinus tachycardia: Worsening EKG with sinus tachycardia. TSH, free T3 and free T4 all are within normal limits Increased Atenolol to 50 mg po daily today. HR improving. Decreased oral intake and dysphagia on initial presentation Speech therapy following intermittently. S/P barium swallow. Patient with severe dysphagia. GI consulted and PEG tube was placed Dietary recommending Glucerna 1.0 at 75 mL's an hour Suction oral secretions as needed. C/O Left forearm pain over volar aspect D/C IV Monitor for improvement Sacral partial skin loss. Left upper back and medial antecubital skin tear wave specialty bed as patient is at risk of having pressure related ulcers. Wound care was consulted. Apply skin barrier cream. Cleanse wound to coccyx with normal saline and apply Santyl ointment luis thick coverage and cover with dry cover dressing, change daily. Turn patient every 2 hours. Neuro-Behcet, chronic No new changes on imaging. Patient followed by neurology. Aphasic at baseline. If neuro status worsening, advised starting steroid. Follow up with neuro. Continue PT/OT Mood disorder Patient was evaluated by psychiatrist Psychiatrist recommended Prozac Diabetes Glucose well controlled Discontinue Accu-Cheks and sliding scale insulin DVT Prophylaxis: Lovenox, TEDs/SCDs. Written by Mari Talamantes PA-C acting as scribe for Dr. Pablo on 09/19/16 at 1340. All or portions of this note were transcribed by scribe Mari Talamantes PA-C. I , Dr. Ede Pablo personally performed the history, physical exam, and medical decision making; and confirmed the accuracy of the information in the transcribed note. Authenticated by Dr. Ede Pablo on 09/20/16 at 08:21. Discharge Planning Case management for discharge planning. Has been referred to an declined at several SNFs. Patient will need LTC, difficult to place, has [id number] Medicaid, no local facility to accept. It appears as if no one has been able to contact any family member concerning this patient's care, that appears to be a significant social issue with family, guardianship, placement. 09/15/16: email marketing manager spoke with sales representative womens health at [facility] and requested them to evaluate patient for long-term placement. Problem Qualifiers (1) UTI (urinary tract infection): Qualified Code: N39.0 - Urinary tract infection without hematuria, site unspecified Mari Talamantes Sep 19, 2016 18:55 Ede Pablo MD Sep 20, 2016 08:21
[2016-09-20] VITALS (7 sets, daily range): BP systolic 105–125; BP diastolic 73–82; PULSE 70–125; RESP 18–21; TEMP 96.1–98.9; O2SAT 95–99
[2016-09-20] MEDS: PIPERACIL-TAZO 3.375 GM PREMIX 50 ML IV SCH ×3 (04:41→14:41)
[2016-09-20] MEDS: SODIUM CHLOR 0.9% 1000 ML INJ 1,000 ML IV SCH ×2 (04:41→14:30)
[2016-09-20 06:25] LABS: AUTOMATED NEUTROPHIL # 13.4 TH/MM3 (1.8-7.7); BASOPHIL % 0.2 % (0.0-2.0); EOSINOPHIL # 0.1 TH/MM3 (0-0.4); EOSINOPHIL % 0.5 % (0.0-4.0); HEMATOCRIT 31.7 % (39.0-51.0); HEMOGLOBIN 10.3 GM/DL (13.0-17.0); LYMPH % 10.7 % (9.0-44.0); LYMPHOCYTE # 1.7 TH/MM3 (1.0-4.8); MEAN CELL VOLUME 85.4 FL (80.0-100.0); MEAN CORPUSCULAR HEMOGLOBIN 27.7 PG (27.0-34.0); MEAN CORPUSCULAR HGB CONC 32.4 % (32.0-36.0); MEAN PLATELET VOLUME 9.8 FL (7.0-11.0); MONO % 5.8 % (0.0-8.0); MONOCYTE # 0.9 TH/MM3 (0-0.9); NEUT % 82.8 % (16.0-70.0); PLATELET COUNT 418 TH/MM3 (150-450); RED BLOOD COUNT 3.71 MIL/MM3 (4.50-5.90); RED CELL DISTRIBUTION WIDTH 15.9 % (11.6-17.2); WHITE BLOOD COUNT 16.1 TH/MM3 (4.0-11.0)
[2016-09-20 06:32] LABS: BICARBONATE 26.8 MEQ/L (21.0-32.0); CALCIUM 9.1 MG/DL (8.5-10.1)
[2016-09-20 06:35] LABS: CREATININE 0.76 MG/DL (0.60-1.30)
[2016-09-20 07:13] LABS: BANDS 8 % (0-6); LYMPHOCYTES 8 % (9-44); MONOCYTES 2 % (0-8); NEUTROPHIL # MANUAL DIFF 14.3 TH/MM3 (1.8-7.7); POLYS (SEG NEUTROPHILS) 81 % (16-70)
[2016-09-20] MEDS: ATENOLOL 25 MG TAB PO SCH (08:35)
[2016-09-20] MEDS: FLUoxetine HCL 10 MG CAP PO SCH (08:35)
[2016-09-20] MEDS: ENOXAPARIN SODIUM 40 MG/0.4 ML SYRINGE SQ SCH (08:35)
[2016-09-20] MEDS: COLLAGENASE OINT 30 GM TUBE TOP SCH (08:35)
[2016-09-20] MEDS: FAMOTIDINE 20 MG TAB PO SCH (08:35)
--- NOTE | 2016-09-20 09:59 | HHI.PR ---
Subjective Remarks Patient seen and examined today with Dr. Pablo. Patient's unable to communicate and give any information. Patient still septic with febrile illness unknown etiology, tachycardia, leukocytosis improving. Unsuccessful thus far at finding source of infection. Objective Vitals Vital Signs Date Time Temp Pulse Resp B/P Pulse Ox O2 Delivery O2 Flow Rate FiO2 09/20/16 08:00 98.9 125 21 105/82 99 09/20/16 04:00 96.8 122 18 119/75 98 09/20/16 00:00 97.7 125 18 114/73 99 09/19/16 20:04 116 09/19/16 20:00 95.6 116 18 115/77 99 09/19/16 15:53 100.7 109 20 106/82 98 09/19/16 12:00 101.4 106 20 101/75 95 I/O 09/19/16 09/19/16 09/19/16 09/20/16 09/20/16 09/20/16 07:00 15:00 23:00 07:00 15:00 23:00 Intake Total 1445 ml 1336 ml Output Total 350 ml 600 ml 350 ml 350 ml Balance 1095 ml 736 ml -350 ml -350 ml Intake Oral 0 ml IV Total 665 ml 647 ml Tube Feeding 705 ml 689 ml Other 75 ml Output Urine Total 350 ml 600 ml 350 ml 350 ml # Bowel Movements 2 1 2 0 1 Result Diagram: 09/20/16 0535 09/20/16 0535 Objective Remarks GENERAL: Well-developed, cachectic, in no acute distress. Appears to be alert but nonverbal. Patient lying in position HEENT: Head is normocephalic without any lesions or masses noted. Facial features are symmetric. Eyes: Pupils equal round reactive to light. Extraocular muscles are intact. Conjunctivae were clear. NECK: Supple without any masses. Trachea midline no deviation. No JVD, CARDIAC: Regular rhythm, regular rate. S1/S2 are heard. No murmurs gallops or rubs. LUNGS: Clear to auscultation bilaterally. No wheeze, rhonchi or rales. No use of accessory muscles on inspiration or expiration. ABDOMEN: Soft, nontender. Nondistended. Bowel sounds heard in all 4 quadrants. No organomegaly or masses. Negative rebound, negative guarding. PEG tube noted EXTREMITIES: No edema, pulses are equal bilaterally. No cyanosis or clubbing Urinary Catheter: No Vascular Central Line Catheter: No A/P Assessment and Plan Sepsis, active Patient still with clinical symptoms to include fever, leukocytosis, sinus tachycardia. Patient does have rather significant sacral decubitus stage IIIII , with yellow/green exudative material. Full workup was performed previously to include urinalysis, blood cultures, lumbar puncture, chest x-ray without any initial source of sepsis, repeat evaluation with chest x-ray, urinalysis, blood cultures, CT the abdomen are unremarkable, no diarrhea. Patient does have rather significant sacral decubitus wound: Will obtain culture. Infectious disease was re-consulted and recommending continuation of Zosyn, continue follow cultures for any abnormality. Patient did have one urine culture of Daphney parapsilosis, was treated with fluconazole for 10 days Prerenal azotemia, resolved Continue IV fluids Continue monitor renal function Hypernatremia Start free water flushes 100 cc every 6 hours Continue IV fluids Monitor sodium level Decreased oral intake and dysphagia on initial presentation Speech therapy following intermittently. S/P barium swallow. Patient with severe dysphagia. GI consulted and PEG tube was placed Dietary recommending Glucerna 1.0 at 75 mL's an hour Sacral decubitus. Left upper back and medial antecubital skin tear, appears to be healed wave specialty bed as patient is at risk of having pressure related ulcers. Wound care was consulted. Apply skin barrier cream. Neuro-Behcet, chronic No new changes on imaging. Patient followed by neurology. Aphasic at baseline. If neuro status worsening, advised starting steroid. Follow up with neuro. Continue PT/OT Sinus tachycardia. EKG ordered and reviewed with sinus tachycardia. On atenolol 50 mg po daily if BP permits. TSH, free T3, free T4 colon were normal Mood disorder Patient was evaluated by psychiatrist. Psychiatrist recommended Prozac Diabetes Glucose well controlled. Discontinue Accu-Cheks and sliding scale insulin DVT Prophylaxis: Lovenox, TEDs/SCDs. Written by Ede Richardson, acting as scribe for Dr. Pablo on 09/20/16 at 10:17. All or portions of this note were transcribed by scribe Ede Richardson. I, Dr. Ede Pablo personally performed the history, physical exam, and medical decision making; and confirmed the accuracy of the information in the transcribed note. Authenticated by Dr. Ede aPblo on 09/20/16 at 11:35. Discharge Planning Case management for discharge planning. Ede Richardson Sep 20, 2016 09:59 Ede Pablo MD Sep 20, 2016 11:36
[2016-09-20] MEDS: ACETAMINOPHEN 325 MG TAB PO PRN (14:41)
[2016-09-21] VITALS: BP 110/86; PULSE 124; RESP 20; TEMP 97.6; O2SAT 98
[2016-09-21] MEDS: PIPERACIL-TAZO 3.375 GM PREMIX 50 ML IV SCH ×5 (00:43→20:52)
[2016-09-21] MEDS: FAMOTIDINE 20 MG TAB PO SCH ×3 (00:44→20:33)
[2016-09-21 04:00] VITALS: BP 109/87; PULSE 131; RESP 20; TEMP 97.5; O2SAT 97
[2016-09-21] MEDS: SODIUM CHLOR 0.9% 1000 ML INJ 1,000 ML IV SCH ×3 (04:23→23:39)
[2016-09-21 06:54] LABS: AUTOMATED NEUTROPHIL # 11.2 TH/MM3 (1.8-7.7); BASOPHIL % 0.1 % (0.0-2.0); EOSINOPHIL # 0.1 TH/MM3 (0-0.4); HEMATOCRIT 30.9 % (39.0-51.0); HEMOGLOBIN 9.9 GM/DL (13.0-17.0); LYMPH % 13.2 % (9.0-44.0); LYMPHOCYTE # 1.8 TH/MM3 (1.0-4.8); MEAN CORPUSCULAR HEMOGLOBIN 27.3 PG (27.0-34.0); MEAN CORPUSCULAR HGB CONC 32.1 % (32.0-36.0); MEAN PLATELET VOLUME 9.5 FL (7.0-11.0); MONOCYTE # 0.7 TH/MM3 (0-0.9); NEUT % 80.7 % (16.0-70.0); PLATELET COUNT 445 TH/MM3 (150-450); RED BLOOD COUNT 3.64 MIL/MM3 (4.50-5.90); RED CELL DISTRIBUTION WIDTH 15.8 % (11.6-17.2); WHITE BLOOD COUNT 13.8 TH/MM3 (4.0-11.0)
[2016-09-21 07:00] LABS: BICARBONATE 26.7 MEQ/L (21.0-32.0); CALCIUM 9.2 MG/DL (8.5-10.1); MAGNESIUM 2.2 MG/DL (1.5-2.5)
[2016-09-21 07:03] LABS: CREATININE 0.69 MG/DL (0.60-1.30)
[2016-09-21 08:00] VITALS: BP 104/75; PULSE 123; RESP 23; TEMP 98.4; O2SAT 99
[2016-09-21] MEDS: ATENOLOL 25 MG TAB PO SCH (10:19)
[2016-09-21] MEDS: ENOXAPARIN SODIUM 40 MG/0.4 ML SYRINGE SQ SCH (10:19)
[2016-09-21] MEDS: FLUoxetine HCL 10 MG CAP PO SCH (10:19)
[2016-09-21] MEDS: COLLAGENASE OINT 30 GM TUBE TOP SCH (10:21)
[2016-09-21 12:00] VITALS: BP 108/72; PULSE 119; RESP 24; TEMP 98.1; O2SAT 99
--- NOTE | 2016-09-21 15:42 | HHI.PR ---
Subjective Remarks Patient seen and examined today with Dr. Pablo. Patient is afebrile this time. Wound culture is pending with gram-negative fox. Objective Vitals Vital Signs Date Time Temp Pulse Resp B/P Pulse Ox O2 Delivery O2 Flow Rate FiO2 09/21/16 12:00 98.1 119 24 108/72 99 09/21/16 08:00 98.4 123 23 104/75 99 09/21/16 08:00 123 09/21/16 04:00 97.5 131 20 109/87 97 09/21/16 00:00 97.6 124 20 110/86 98 09/20/16 20:01 104 09/20/16 20:00 96.1 106 19 112/79 99 09/20/16 16:00 98.6 70 18 125/78 96 I/O 09/20/16 09/20/16 09/20/16 09/21/16 09/21/16 09/21/16 07:00 15:00 23:00 07:00 15:00 23:00 Intake Total 2868 ml 0 ml 2295 ml Output Total 350 ml 1250 ml 500 ml Balance -350 ml 2868 ml -1250 ml 1795 ml Intake Oral 0 ml 0 ml IV Total 2604 ml 1158 ml Tube Feeding 264 ml 937 ml Other 200 ml Output Urine Total 350 ml 1250 ml 500 ml # Bowel Movements 0 1 0 1 Result Diagram: 09/21/1661609/21/16616 Objective Remarks GENERAL: Well-developed, cachectic, in no acute distress. Appears to be alert but nonverbal. Patient lying in position HEENT: Head is normocephalic without any lesions or masses noted. Facial features are symmetric. Eyes: Pupils equal round reactive to light. Extraocular muscles are intact. Conjunctivae were clear. NECK: Supple without any masses. Trachea midline no deviation. No JVD, CARDIAC: Regular rhythm, regular rate. S1/S2 are heard. No murmurs gallops or rubs. LUNGS: Clear to auscultation bilaterally. No wheeze, rhonchi or rales. No use of accessory muscles on inspiration or expiration. ABDOMEN: Soft, nontender. Nondistended. Bowel sounds heard in all 4 quadrants. No organomegaly or masses. Negative rebound, negative guarding. PEG tube noted EXTREMITIES: No edema, pulses are equal bilaterally. No cyanosis or clubbing SACRAL AREA: Patient is a 3 x 2 cm stage IIIII ulceration Urinary Catheter: No Vascular Central Line Catheter: No A/P Assessment and Plan Sepsis, active Patient still with clinical symptoms to include leukocytosis, sinus tachycardia. But improving. Afebrile this time. Patient does have rather significant sacral decubitus stage IIIII, with yellow/green exudative material. Full workup was performed previously to include urinalysis, blood cultures, lumbar puncture, chest x-ray without any initial source of sepsis, repeat evaluation with chest x-ray, urinalysis, blood cultures, CT the abdomen are unremarkable, no diarrhea. Patient does have rather significant sacral decubitus wound: Wound culture with gram-negative fox. Infectious disease was re-consulted and recommending continuation of Zosyn, continue follow cultures for any abnormality. Patient did have one urine culture of Daphney parapsilosis, was treated with fluconazole for 10 days Prerenal azotemia, resolved Continue IV fluids Continue monitor renal function Hypernatremia Continue free water flushes 100 cc every 6 hours Continue IV fluids Monitor sodium level Decreased oral intake and dysphagia on initial presentation Speech therapy following intermittently. S/P barium swallow. Patient with severe dysphagia. GI consulted and PEG tube was placed Dietary recommending Glucerna 1.5 at 60 mL's an hour Sacral decubitus. Left upper back and medial antecubital skin tear, appears to be healed wave specialty bed as patient is at risk of having pressure related ulcers. Wound care was consulted. Apply skin barrier cream. Neuro-Behcet, chronic No new changes on imaging. Patient followed by neurology. Aphasic at baseline. If neuro status worsening, advised starting steroid. Follow up with neuro. Continue PT/OT Sinus tachycardia. EKG ordered and reviewed with sinus tachycardia. On atenolol 50 mg po daily if BP permits. TSH, free T3, free T4 colon were normal Mood disorder Patient was evaluated by psychiatrist. Psychiatrist recommended Prozac Diabetes Glucose well controlled. Discontinue Accu-Cheks and sliding scale insulin DVT Prophylaxis: Lovenox, TEDs/SCDs. Written by Ede Richardson, acting as scribe for Dr. Pablo on 09/21/16 at 15:42. All or portions of this note were transcribed by scribe Ede Richardson. I, Dr. Ede Pablo personally performed the history, physical exam, and medical decision making; and confirmed the accuracy of the information in the transcribed note. Authenticated by Dr. Ede Pablo on 09/21/16 at 16:39. Discharge Planning Case management for discharge planning. Ede Richardson Sep 21, 2016 15:42 Ede Pablo MD Sep 21, 2016 16:39
[2016-09-21 20:00] VITALS: BP 116/81; PULSE 106; RESP 22; TEMP 98.1; O2SAT 98
[2016-09-21 20:05] VITALS: PULSE 107
--- NOTE | 2016-09-21 23:36 | HHI.IDPN ---
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 Non verbal followed by ID for persistent fevers afebrile x [address] A/P and CXR fro 09/17 unremarkable Antibiotics Zosyn IV Lines Line sites with no e.o infection Past Medical History reviewed Allergies: Uncoded Allergies: ADHESIVE TAPE (Allergy, Severe, 09/21/16) BLISTERS Objective . Vital Signs Date Time Temp Pulse Resp B/P Pulse Ox O2 Delivery O2 Flow Rate FiO2 09/21/16 20:00 98.1 106 22 116/81 98 09/21/16 12:00 98.1 119 24 108/72 99 09/21/16 08:00 98.4 123 23 104/75 99 09/21/16 08:00 123 09/21/16 04:00 97.5 131 20 109/87 97 09/21/16 00:00 97.6 124 20 110/86 98 09/20/16 09/20/16 09/21/16 15:00 23:00 07:00 Intake Total 2868 ml 0 ml 2295 ml Output Total 1250 ml 500 ml Balance 2868 ml -1250 ml 1795 ml Intake Oral 0 ml 0 ml IV Total 2604 ml 1158 ml Tube Feeding 264 ml 937 ml Other 200 ml Output Urine Total 1250 ml 500 ml # Bowel Movements 1 0 1 . Laboratory Tests Test 09/20/16 09/21/16 05:35 06:17 White Blood Count 16.1 TH/MM3 13.8 TH/MM3 Red Blood Count 3.71 MIL/MM3 3.64 MIL/MM3 Hemoglobin 10.3 GM/DL 9.9 GM/DL Hematocrit 31.7 % 30.9 % Mean Corpuscular Volume 85.4 FL 85.0 FL Mean Corpuscular Hemoglobin 27.7 PG 27.3 PG Mean Corpuscular Hemoglobin 32.4 % 32.1 % Concent Red Cell Distribution Width 15.9 % 15.8 % Platelet Count 418 TH/MM3 445 TH/MM3 Mean Platelet Volume 9.8 FL 9.5 FL Neutrophils (%) (Auto) 82.8 % 80.7 % Lymphocytes (%) (Auto) 10.7 % 13.2 % Monocytes (%) (Auto) 5.8 % 5.0 % Eosinophils (%) (Auto) 0.5 % 1.0 % Basophils (%) (Auto) 0.2 % 0.1 % Neutrophils # (Auto) 13.4 TH/MM3 11.2 TH/MM3 Lymphocytes # (Auto) 1.7 TH/MM3 1.8 TH/MM3 Monocytes # (Auto) 0.9 TH/MM3 0.7 TH/MM3 Eosinophils # (Auto) 0.1 TH/MM3 0.1 TH/MM3 Basophils # (Auto) 0.0 TH/MM3 0.0 TH/MM3 CBC Comment AUTO DIFF DIFF FINAL Differential Total Cells 100 Counted Neutrophils % (Manual) 81 % Band Neutrophils % 8 % Lymphocytes % 8 % Monocytes % 2 % Eosinophils % 1 % Neutrophils # (Manual) 14.3 TH/MM3 Differential Comment FINAL DIFF MANUAL Platelet Estimate NORMAL Platelet Morphology Comment NORMAL Red Cell Morphology Comment NORMAL Laboratory Tests Test 09/20/16 09/21/16 05:35 06:17 Sodium Level 147 MEQ/L 147 MEQ/L Potassium Level 3.5 MEQ/L 3.7 MEQ/L Chloride Level 112 MEQ/L 111 MEQ/L Carbon Dioxide Level 26.8 MEQ/L 26.7 MEQ/L Anion Gap 8 MEQ/L 9 MEQ/L Blood Urea Nitrogen 18 MG/DL 18 MG/DL Creatinine 0.76 MG/DL 0.69 MG/DL Estimat Glomerular Filtration 135 ML/MIN 151 ML/MIN Rate Random Glucose 151 MG/DL 134 MG/DL Calcium Level 9.1 MG/DL 9.2 MG/DL Magnesium Level 2.2 MG/DL Microbiology Date/Time Procedure Status Source Growth 09/20/16 10:53 Gram Stain - Final Resulted Wound Buttock 09/20/16 10:53 Wound Culture - Preliminary Resulted Gram Negative [facility] Last Impressions Chest X-Ray 09/17/16 1002 Signed Impressions: Service Date/Time: Saturday, September 17, 2016 10:12 - CONCLUSION: Normal examination. Ronna Lucia MD Abdomen/Pelvis CT 09/17/16 0000 Signed Impressions: Service Date/Time: Saturday, September 17, 2016 23:35 - CONCLUSION: 1. Constipation. 2. No acute abnormality. Vishal Beckford Jr., MD Renal Ultrasound 08/28/16 0000 Signed Impressions: Service Date/Time: Sunday, August 28, 2016 20:03 - CONCLUSION: Mild increased echotexture of both kidneys. Baldev Vu MD Upper Extremity Ultrasound 08/19/16 0000 Signed Impressions: Service Date/Time: Friday, August 19, 2016 22:32 - CONCLUSION: Left cephalic vein occlusive thrombus noted in the antecubital fossa. Baldev Vu MD Lumbar Puncture Fluoroscopy 08/17/16 0000 Signed Impressions: Service Date/Time: Wednesday, August 17, 2016 12:26 - CONCLUSION: Uncomplicated fluoroscopically guided lumbar puncture. Vishal Beckford Jr., MD Brain MRI 08/17/16 0000 Signed Impressions: Service Date/Time: Wednesday, August 17, 2016 13:28 - CONCLUSION: Remote long-standing areas of abnormality in the brainstem and middle cerebellar peduncle consistent with remote infarcts or contusion. No acute intracranial abnormality. Chacho Bright MD Abdomen X-Ray 08/17/16 0000 Signed Impressions: Service Date/Time: Wednesday, August 17, 2016 13:02 - CONCLUSION: No evidence of obstruction. No MRI incompatible foreign body is identified. Chacho Bright MD Head CT 08/16/16 0000 Signed Impressions: Service Date/Time: Tuesday, August 16, 2016 09:55 - CONCLUSION: Chronic ischemic changes left frontal lobe possibly from evidence of previous ventriculostomy placement, unchanged. No acute intracranial abnormality. Gen Potter MD Modified Barium Swallow 08/15/16 0000 Signed Impressions: Service Date/Time: Monday, August 15, 2016 00:00 - CONCLUSION: See report above and speech pathology report Chacho Bright MD Physical Exam GENERAL: Poorly nourished, chronically ill appearing patient, in no apparent distress. SKIN: Old scars on arms. Stage 3 healing clean sacral decubitus- no sign of infection HEAD: Atraumatic. Normocephalic. No temporal or scalp tenderness. EYES: Pupils equal round and reactive. Extraocular motions intact. No scleral icterus. No injection or drainage. ENT: Nose without bleeding, purulent drainage or septal hematoma. Throat without erythema, tonsillar hypertrophy or exudate. Uvula midline. Airway patent. NECK: Trachea midline. Supple, nontender, no meningeal signs. CARDIOVASCULAR: HS audible. No murmur. RESPIRATORY:. Breath sounds equal bilaterally. Some rhonchi present GASTROINTESTINAL: Abdomen soft, non-tender, nondistended. MUSCULOSKELETAL: Extremities without clubbing, cyanosis, or edema. Wasting and contractures NEUROLOGICAL: Awake and alert. Aphasic. LE weakness but able to flex both limbs minimally. Contractures noted. Psych: unabe to assess IV line sites with no e.o infection. Assessment & Plan Remarks Diagnosis: (1) Neurologic type Behcet's syndrome (2) Fever, all bl clx remain negative (3) Leucocytosis: significantly improved (4) Buttock wound - growing GNB ? colonisation Plan: Follow blood and wound cultures cont zosyn for now WBC minimally improved. Margie Valdivia MD Sep 21, 2016 23:36
[2016-09-22] VITALS: BP 101/68; PULSE 112; RESP 20; TEMP 97.6; O2SAT 99
[2016-09-22 04:00] VITALS: BP 107/87; PULSE 131; RESP 22; TEMP 98.8; O2SAT 97
[2016-09-22] MEDS: PIPERACIL-TAZO 3.375 GM PREMIX 50 ML IV SCH ×4 (04:02→21:42)
[2016-09-22 08:00] VITALS: BP 98/82; PULSE 120; RESP 20; TEMP 97.9; O2SAT 98
[2016-09-22] MEDS: ATENOLOL 25 MG TAB PO SCH (11:10)
[2016-09-22] MEDS: FLUoxetine HCL 10 MG CAP PO SCH (11:10)
[2016-09-22] MEDS: COLLAGENASE OINT 30 GM TUBE TOP SCH (11:10)
[2016-09-22] MEDS: FAMOTIDINE 20 MG TAB PO SCH ×2 (11:10→21:41)
[2016-09-22] MEDS: SODIUM CHLOR 0.9% 1000 ML INJ 1,000 ML IV SCH (11:11)
[2016-09-22] MEDS: ENOXAPARIN SODIUM 40 MG/0.4 ML SYRINGE SQ SCH (11:11)
[2016-09-22 12:00] VITALS: BP 115/79; PULSE 119; RESP 22; TEMP 98.5; O2SAT 98
--- NOTE | 2016-09-22 14:29 | HHI.PR ---
Subjective Remarks Patient seen and examined today with Dr. Min. Patient remains afebrile. Leukocytosis improving. Patient's disease following the patient. Patient noncommunicative. Objective Vitals Vital Signs Date Time Temp Pulse Resp B/P Pulse Ox O2 Delivery O2 Flow Rate FiO2 09/22/16 08:00 97.9 120 20 98/82 98 09/22/16 04:00 98.8 131 22 107/87 97 09/22/16 00:00 97.6 112 20 101/68 99 09/21/16 20:05 107 09/21/16 20:00 98.1 106 22 116/81 98 I/O 09/21/16 09/21/16 09/21/16 09/22/16 09/22/16 09/22/16 07:00 15:00 23:00 07:00 15:00 23:00 Intake Total 2295 ml 0 ml 3783 ml 1423 ml Output Total 500 ml 850 ml 700 ml 650 ml Balance 1795 ml -850 ml 3083 ml 773 ml Intake Oral 0 ml 0 ml 0 ml 0 ml IV Total 1158 ml 1881 ml 730 ml Tube Feeding 937 ml 1702 ml 593 ml Tube Irrigant 100 ml Other 200 ml 100 ml 100 ml Output Urine Total 500 ml 850 ml 700 ml 650 ml # Bowel Movements 1 1 0 0 Result Diagram: 09/21/1661609/21/16616 Objective Remarks GENERAL: Well-developed, cachectic, in no acute distress. Appears to be alert but nonverbal. Patient lying in position HEENT: Head is normocephalic without any lesions or masses noted. Facial features are symmetric. Eyes: Pupils equal round reactive to light. Extraocular muscles are intact. Conjunctivae were clear. NECK: Supple without any masses. Trachea midline no deviation. No JVD, CARDIAC: Regular rhythm, regular rate. S1/S2 are heard. No murmurs gallops or rubs. LUNGS: Clear to auscultation bilaterally. No wheeze, rhonchi or rales. No use of accessory muscles on inspiration or expiration. ABDOMEN: Soft, nontender. Nondistended. Bowel sounds heard in all 4 quadrants. No organomegaly or masses. Negative rebound, negative guarding. PEG tube noted EXTREMITIES: No edema, pulses are equal bilaterally. No cyanosis or clubbing SACRAL AREA: Patient is a 3 x 2 cm stage IIIII ulceration Urinary Catheter: No Vascular Central Line Catheter: No A/P Assessment and Plan Sepsis, active Patient still with clinical symptoms to include leukocytosis, sinus tachycardia. But improving. Afebrile this time. Patient does have rather significant sacral decubitus stage IIIII, with yellow/green exudative material. Full workup was performed previously to include urinalysis, blood cultures, lumbar puncture, chest x-ray without any initial source of sepsis, repeat evaluation with chest x-ray, urinalysis, blood cultures, CT the abdomen are unremarkable, no diarrhea. Patient does have rather significant sacral decubitus wound: Wound culture with pseudo fluorescens/putida, group D enterococcus which is sensitive to Zosyn Infectious disease was re-consulted and recommending continuation of Zosyn, continue follow cultures for any abnormality. Awaiting further recommendations Patient did have one urine culture of Daphney parapsilosis, was treated with fluconazole for 10 days Prerenal azotemia, resolved Continue IV fluids Continue monitor renal function Hypernatremia Continue free water flushes 100 cc every 6 hours Continue IV fluids Monitor sodium level Decreased oral intake and dysphagia on initial presentation Speech therapy following intermittently. S/P barium swallow. Patient with severe dysphagia. GI consulted and PEG tube was placed Dietary recommending Glucerna 1.5 at 60 mL's an hour Sacral decubitus. Left upper back and medial antecubital skin tear, appears to be healed wave specialty bed as patient is at risk of having pressure related ulcers. Wound care was consulted. Apply skin barrier cream. Neuro-Behcet, chronic No new changes on imaging. Patient followed by neurology. Aphasic at baseline. If neuro status worsening, advised starting steroid. Follow up with neuro. Continue PT/OT Sinus tachycardia. EKG ordered and reviewed with sinus tachycardia. On atenolol 50 mg po daily if BP permits. TSH, free T3, free T4 colon were normal Mood disorder Patient was evaluated by psychiatrist. Psychiatrist recommended Prozac Diabetes Glucose well controlled. Discontinue Accu-Cheks and sliding scale insulin DVT Prophylaxis: Lovenox, TEDs/SCDs. Written by Ede Richardson PA-C, acting as scribe for Dr. Min on 09/22/16 at 1420. The documentation accurately reflects the work and decisions performed face-to- face by Dr. Min on 09/22/16 at 1420. Discharge Planning Case management for discharge planning. Ede Richardson Sep 22, 2016 14:29
[2016-09-22 16:00] VITALS: BP 112/80; PULSE 103; RESP 22; TEMP 98; O2SAT 97
[2016-09-22 20:00] VITALS: BP_SYST 101; BP_SYST 103; BP_DIAS 70; BP_DIAS 78; PULSE 100; RESP 18; RESP 23; TEMP 98; TEMP 98.4; O2SAT 100; O2SAT 96
[2016-09-23] MEDS: SODIUM CHLOR 0.9% 1000 ML INJ 1,000 ML IV SCH ×2 (02:02→13:23)
[2016-09-23] MEDS: PIPERACIL-TAZO 3.375 GM PREMIX 50 ML IV SCH ×4 (03:50→21:29)
[2016-09-23 06:54] LABS: AUTOMATED NEUTROPHIL # 10.1 TH/MM3 (1.8-7.7); BASOPHIL # 0.1 TH/MM3 (0-0.2); BASOPHIL % 0.5 % (0.0-2.0); EOSINOPHIL # 0.3 TH/MM3 (0-0.4); EOSINOPHIL % 2.1 % (0.0-4.0); HEMATOCRIT 28.2 % (39.0-51.0); HEMOGLOBIN 9.1 GM/DL (13.0-17.0); LYMPH % 12.7 % (9.0-44.0); LYMPHOCYTE # 1.6 TH/MM3 (1.0-4.8); MEAN CELL VOLUME 85.2 FL (80.0-100.0); MEAN CORPUSCULAR HEMOGLOBIN 27.4 PG (27.0-34.0); MEAN CORPUSCULAR HGB CONC 32.2 % (32.0-36.0); MONO % 4.6 % (0.0-8.0); MONOCYTE # 0.6 TH/MM3 (0-0.9); NEUT % 80.1 % (16.0-70.0); PLATELET COUNT 493 TH/MM3 (150-450); RED BLOOD COUNT 3.32 MIL/MM3 (4.50-5.90); RED CELL DISTRIBUTION WIDTH 15.9 % (11.6-17.2); WHITE BLOOD COUNT 12.7 TH/MM3 (4.0-11.0)
[2016-09-23 07:06] LABS: BICARBONATE 27.9 MEQ/L (21.0-32.0); CALCIUM 9.3 MG/DL (8.5-10.1); MAGNESIUM 2.1 MG/DL (1.5-2.5)
[2016-09-23 07:09] LABS: CREATININE 0.63 MG/DL (0.60-1.30)
[2016-09-23 08:00] VITALS: BP 108/44; PULSE 106; RESP 18; TEMP 98.7; O2SAT 96
[2016-09-23] MEDS: ATENOLOL 25 MG TAB PO SCH (09:58)
[2016-09-23] MEDS: ENOXAPARIN SODIUM 40 MG/0.4 ML SYRINGE SQ SCH (09:58)
[2016-09-23] MEDS: FLUoxetine HCL 10 MG CAP PO SCH (09:58)
[2016-09-23] MEDS: FAMOTIDINE 20 MG TAB PO SCH ×2 (09:58→21:28)
[2016-09-23] MEDS: COLLAGENASE OINT 30 GM TUBE TOP SCH (09:59)
--- NOTE | 2016-09-23 14:23 | HHI.PR ---
Subjective Remarks Patient seen and examined today. patient remains afebrile, still tachycardia, nursing indicates that patient had episode of diarrhea this afternoon Objective Vitals Vital Signs Date Time Temp Pulse Resp B/P Pulse Ox O2 Delivery O2 Flow Rate FiO2 09/23/16 08:00 98.7 106 18 108/44 96 09/22/16 20:00 98.4 100 18 103/70 96 09/22/16 20:00 98.0 100 23 101/78 100 09/22/16 16:00 98.0 103 22 112/80 97 I/O 09/22/16 09/22/16 09/22/16 09/23/16 09/23/16 09/23/16 07:00 15:00 23:00 07:00 15:00 23:00 Intake Total 1423 ml 1555 ml Output Total 650 ml 1050 ml 1300 ml 600 ml Balance 773 ml -1050 ml -1300 ml 955 ml Intake Oral 0 ml IV Total 730 ml 755 ml Tube Feeding 593 ml 600 ml Tube Irrigant 200 ml Other 100 ml Output Urine Total 650 ml 1050 ml 1300 ml 600 ml # Bowel Movements 0 2 0 Result Diagram: 09/23/1663409/23/16 0635 Objective Remarks GENERAL: Well-developed, cachectic, in no acute distress. Appears to be alert but nonverbal. Patient lying in position HEENT: Head is normocephalic without any lesions or masses noted. Facial features are symmetric. Eyes: Pupils equal round reactive to light. Extraocular muscles are intact. Conjunctivae were clear. NECK: Supple without any masses. Trachea midline no deviation. No JVD, CARDIAC: Regular rhythm, regular rate. S1/S2 are heard. No murmurs gallops or rubs. LUNGS: Clear to auscultation bilaterally. No wheeze, rhonchi or rales. No use of accessory muscles on inspiration or expiration. ABDOMEN: Soft, nontender. Nondistended. Bowel sounds heard in all 4 quadrants. No organomegaly or masses. Negative rebound, negative guarding. PEG tube noted EXTREMITIES: No edema, pulses are equal bilaterally. No cyanosis or clubbing SACRAL AREA: Patient is a 3 x 2 cm stage IIIII ulceration Urinary Catheter: No Vascular Central Line Catheter: No A/P Assessment and Plan Sepsis, active Patient still with clinical symptoms to include leukocytosis, sinus tachycardia. But improving. Afebrile this time. Patient does have rather significant sacral decubitus stage IIIII, with yellow/green exudative material. Full workup was performed previously to include urinalysis, blood cultures, lumbar puncture, chest x-ray without any initial source of sepsis, repeat evaluation with chest x-ray, urinalysis, blood cultures, CT the abdomen are unremarkable, Patient does have rather significant sacral decubitus wound: Wound culture with pseudo fluorescens/putida, group D enterococcus VRE which is sensitive to Zosyn Infectious disease was re-consulted and recommending continuation of Zosyn, continue follow cultures for any abnormality. Awaiting further recommendations Patient did have one urine culture of Daphney parapsilosis, was treated with fluconazole for 10 days --Patient now with diarrhea, will check C Diff culture --Await ID for antibiotic changes Prerenal azotemia, resolved Continue IV fluids Continue monitor renal function Hypernatremia Continue free water flushes 100 cc every 6 hours Continue IV fluids Monitor sodium level Decreased oral intake and dysphagia on initial presentation Speech therapy following intermittently. S/P barium swallow. Patient with severe dysphagia. GI consulted and PEG tube was placed Dietary recommending Glucerna 1.5 at 60 mL's an hour Sacral decubitus. Left upper back and medial antecubital skin tear, appears to be healed wave specialty bed as patient is at risk of having pressure related ulcers. Wound care was consulted. Apply skin barrier cream. Neuro-Behcet, chronic No new changes on imaging. Patient followed by neurology. Aphasic at baseline. If neuro status worsening, advised starting steroid. Follow up with neuro. Continue PT/OT Sinus tachycardia. EKG ordered and reviewed with sinus tachycardia. On atenolol 50 mg po daily if BP permits. TSH, free T3, free T4 colon were normal Mood disorder Patient was evaluated by psychiatrist. Psychiatrist recommended Prozac Diabetes Glucose well controlled. Discontinue Accu-Cheks and sliding scale insulin DVT Prophylaxis: Lovenox, TEDs/SCDs. Discharge Planning Case management for discharge planning. Ede Richardson Sep 23, 2016 14:23
[2016-09-23 20:00] VITALS: BP 114/75; PULSE 100; RESP 22; TEMP 97.8; O2SAT 100
[2016-09-24] MEDS: SODIUM CHLOR 0.9% 1000 ML INJ 1,000 ML IV SCH ×2 (01:02→13:52)
[2016-09-24] MEDS: PIPERACIL-TAZO 3.375 GM PREMIX 50 ML IV SCH ×3 (04:11→15:43)
[2016-09-24 08:00] VITALS: BP 124/93; PULSE 124; RESP 24; TEMP 98; O2SAT 99
[2016-09-24] MEDS: COLLAGENASE OINT 30 GM TUBE TOP SCH (08:19)
[2016-09-24] MEDS: FAMOTIDINE 20 MG TAB PO SCH ×2 (08:20→21:29)
[2016-09-24] MEDS: ATENOLOL 25 MG TAB PO SCH (08:20)
[2016-09-24] MEDS: ENOXAPARIN SODIUM 40 MG/0.4 ML SYRINGE SQ SCH (08:20)
[2016-09-24] MEDS: FLUoxetine HCL 10 MG CAP PO SCH (08:20)
--- NOTE | 2016-09-24 11:49 | HHI.PR ---
Subjective Remarks Patient seen and examined today. Patient is doing much better. Patient is responding appropriately to questions. He is not indicating that he is having any problems today. Denies any pain. Objective Vitals Vital Signs Date Time Temp Pulse Resp B/P Pulse Ox O2 Delivery O2 Flow Rate FiO2 09/24/16 08:00 98.0 124 24 124/93 99 09/23/16 20:00 97.8 100 22 114/75 100 I/O 09/23/16 09/23/16 09/23/16 09/24/16 09/24/16 09/24/16 07:00 15:00 23:00 07:00 15:00 23:00 Intake Total 1555 ml 1924 ml 260 ml Output Total 600 ml 1200 ml Balance 955 ml 724 ml 260 ml IV Total 755 ml 1024 ml Tube Feeding 600 ml 700 ml 60 ml Tube Irrigant 200 ml Other 200 ml 200 ml Output Urine Total 600 ml 1200 ml # Voids 2 4 # Bowel Movements 1 Result Diagram: 09/23/16 0635 09/23/1635 Objective Remarks GENERAL: Well-developed, cachectic, in no acute distress. Appears to be alert but nonverbal. Patient lying in position HEENT: Head is normocephalic without any lesions or masses noted. Facial features are symmetric. Eyes: Pupils equal round reactive to light. Extraocular muscles are intact. Conjunctivae were clear. NECK: Supple without any masses. Trachea midline no deviation. No JVD, CARDIAC: Regular rhythm, regular rate. S1/S2 are heard. No murmurs gallops or rubs. LUNGS: Clear to auscultation bilaterally. No wheeze, rhonchi or rales. No use of accessory muscles on inspiration or expiration. ABDOMEN: Soft, nontender. Nondistended. Bowel sounds heard in all 4 quadrants. No organomegaly or masses. Negative rebound, negative guarding. PEG tube noted EXTREMITIES: No edema, pulses are equal bilaterally. No cyanosis or clubbing SACRAL AREA: Patient is a 3 x 2 cm stage IIIII ulceration Urinary Catheter: No Vascular Central Line Catheter: No A/P Assessment and Plan Sepsis, improved Patient still with clinical symptoms to include leukocytosis, sinus tachycardia. But improving. Afebrile this time. Patient does have rather significant sacral decubitus stage IIIII, with yellow/green exudative material. Full workup was performed previously to include urinalysis, blood cultures, lumbar puncture, chest x-ray without any initial source of sepsis, repeat evaluation with chest x-ray, urinalysis, blood cultures, CT the abdomen are unremarkable, Patient does have rather significant sacral decubitus wound: Wound culture with pseudo fluorescens/putida, group D enterococcus VRE which is sensitive to Zosyn Infectious disease was re-consulted and recommending continuation of Zosyn, continue follow cultures for any abnormality. Awaiting further recommendations Patient did have one urine culture of Daphney parapsilosis, was treated with fluconazole for 10 days --Patient had episode of diarrhea, C. difficile cultures performed which was negative. --Await ID for antibiotic changes Prerenal azotemia, resolved Continue IV fluids Continue monitor renal function Hypernatremia Continue free water flushes 100 cc every 6 hours Continue IV fluids Monitor sodium level Decreased oral intake and dysphagia on initial presentation Speech therapy following intermittently. S/P barium swallow. Patient with severe dysphagia. GI consulted and PEG tube was placed Dietary recommending Glucerna 1.5 at 60 mL's an hour Sacral decubitus. Left upper back and medial antecubital skin tear, appears to be healed wave specialty bed as patient is at risk of having pressure related ulcers. Wound care was consulted. Apply skin barrier cream. Neuro-Behcet, chronic No new changes on imaging. Patient followed by neurology. Aphasic at baseline. If neuro status worsening, advised starting steroid. Follow up with neuro. Continue PT/OT Sinus tachycardia. EKG ordered and reviewed with sinus tachycardia. On atenolol 50 mg po daily if BP permits. TSH, free T3, free T4 colon were normal Mood disorder Patient was evaluated by psychiatrist. Psychiatrist recommended Prozac Diabetes Glucose well controlled. Discontinue Accu-Cheks and sliding scale insulin DVT Prophylaxis: Lovenox, TEDs/SCDs. Discharge Planning Case management for discharge planning. Ede Richardson Sep 24, 2016 11:49
[2016-09-24 20:00] VITALS: BP 122/82; PULSE 127; RESP 20; TEMP 99.8; O2SAT 98
[2016-09-25] VITALS (17 sets, daily range): BP systolic 94–126; BP diastolic 67–88; PULSE 94–148; RESP 14–25; TEMP 97.9–102.8; O2SAT 96–100
[2016-09-25] MEDS: SODIUM CHLOR 0.9% 1000 ML INJ 1,000 ML IV SCH ×3 (02:22→21:41)
[2016-09-25 08:27] LABS: HEMATOCRIT 34.5 % (39.0-51.0); HEMOGLOBIN 11.2 GM/DL (13.0-17.0)
[2016-09-25] MEDS: ATENOLOL 25 MG TAB PO SCH (08:29)
[2016-09-25] MEDS: ACETAMINOPHEN 325 MG TAB PO PRN ×2 (08:29→23:59)
[2016-09-25] MEDS: FAMOTIDINE 20 MG TAB PO SCH (08:29)
[2016-09-25] MEDS: FLUoxetine HCL 10 MG CAP PO SCH (08:29)
[2016-09-25] MEDS: ENOXAPARIN SODIUM 40 MG/0.4 ML SYRINGE SQ SCH (08:30)
[2016-09-25] MEDS: COLLAGENASE OINT 30 GM TUBE TOP SCH (08:30)
--- NOTE | 2016-09-25 11:11 | HHI.PR ---
Subjective Remarks Patient seen and examined today. Patient is awake nodding to questions today. HR increased today. Rechecked and in low 90's. Temp 101. BP dropping, last recheck with systolic in the 90's. A significant amount of blood, bright red blood clots and melena noted in patient's depend. STAT labs, BC and CXR ordered. STAT transfer to ICU for closer monitoring. Objective Vitals Vital Signs Date Time Temp Pulse Resp B/P Pulse Ox O2 Delivery O2 Flow Rate FiO2 09/25/16 09:52 94 09/25/16 08:00 97.9 148 25 121/88 98 09/24/16 20:00 99.8 127 20 122/82 98 I/O 09/24/16 09/24/16 09/24/16 09/25/16 09/25/16 09/25/16 07:00 15:00 23:00 07:00 15:00 23:00 Intake Total 260 ml 5858 ml 0 ml Output Total 1 ml Balance 260 ml 5858 ml 0 ml -1 ml Intake Oral 0 ml IV Total 3411 ml Tube Feeding 60 ml 2447 ml Other 200 ml Stool Total 1 ml # Voids 4 1 2 # Bowel Movements 0 1 Result Diagram: 09/25/16 0745 09/23/16 0635 Objective Remarks GENERAL: Well-developed, cachectic. Appears to be alert but nonverbal. Denies pain. Patient lying in position. No diaphoresis noted today. Bright red blood and clots noted in patient's depend. Tachycardic today. Febrile. HEENT: Head is normocephalic without any lesions or masses noted. Facial features are symmetric. Eyes: Pupils equal round reactive to light. Extraocular muscles are intact. Conjunctivae were clear. NECK: Supple without any masses. Trachea midline no deviation. No JVD, CARDIAC: Regular rhythm, tachycardia noted. S1/S2 are heard. No murmurs gallops or rubs. LUNGS: Clear to auscultation bilaterally. No wheeze, rhonchi or rales. No use of accessory muscles on inspiration or expiration. ABDOMEN: Soft, nontender. Nondistended. Bowel sounds heard in all 4 quadrants. No organomegaly or masses. Negative rebound, negative guarding. PEG tube noted. EXTREMITIES: No edema, pulses are equal bilaterally. No cyanosis or clubbing SACRAL AREA: Patient is a 3 x 2 cm stage IIIII ulceration Urinary Catheter: No Vascular Central Line Catheter: No A/P Assessment and Plan Melena, bright red blood in stool - STAT labs: APTT, PT/INR, BMP, CBC - GI consulted, appreciated input - Patient transfer to ICU for closer monitoring. D/w GI Dr. Ash - will transfer to [facility] Recurrent sepsis (new) with fever and tachycardia and hypotension this am. Patient still with clinical symptoms to include leukocytosis, sinus tachycardia. Febrile. CXR, UA and BC ordered this am. 1L NS bolus ordered. Lactic acid protocol, Patient does have rather significant sacral decubitus stage IIIII, with yellow/green exudative material, order wound culture. Vancomycin and zosyn ordered. Full workup was performed previously to include urinalysis, blood cultures, lumbar puncture, chest x-ray without any initial source of sepsis, repeat evaluation with chest x-ray, urinalysis, blood cultures, CT the abdomen are unremarkable. Patient does have rather significant sacral decubitus wound: Wound culture with pseudo fluorescens/putida, group D enterococcus VRE which is sensitive to Zosyn. Infectious disease was re-consulted and recommending continuation of Zosyn, continue follow cultures for any abnormality. Awaiting further recommendations. Patient did have one urine culture of Daphney parapsilosis, was treated with fluconazole for 10 days. --Patient had episode of diarrhea, C. difficile cultures performed which was negative. --ID ff Prerenal azotemia, resolved Continue IV fluids Continue monitor renal function Hypernatremia Continue free water flushes 100 cc every 6 hours Continue IV fluids Monitor sodium level Decreased oral intake and dysphagia on initial presentation Speech therapy following intermittently. S/P barium swallow. Patient with severe dysphagia. GI consulted and PEG tube was placed. Dietary recommending Glucerna 1.5 at 60 mL's an hour, tolerating well. Sacral decubitus. Left upper back and medial antecubital skin tear, appears to be healed wave specialty bed as patient is at risk of having pressure related ulcers. Wound care was consulted. Apply skin barrier cream. Neuro-Behcet, chronic No new changes on imaging. Patient followed by neurology. Aphasic at baseline. If neuro status worsening, advised starting steroid. Follow up with neuro. Continue PT/OT Sinus tachycardia. EKG ordered and reviewed with sinus tachycardia. On atenolol 50 mg po daily if BP permits. TSH, free T3, free T4 colon were normal Mood disorder Patient was evaluated by psychiatrist. Psychiatrist recommended Prozac Diabetes Glucose well controlled. Discontinue Accu-Cheks and sliding scale insulin DVT Prophylaxis: Lovenox, TEDs/SCDs. Consult intenvisist for critical care management. All or portions of this note were transcribed by darrion Richardson. I, Dr. Kathleen Min personally performed the history, physical exam, and medical decision making; and confirmed the accuracy of the information in the transcribed note. Authenticated by Dr. Kathleen Min on 09/25/16 at 13:09. Discharge Planning Case management for discharge planning. Ede Richardson Sep 25, 2016 11:11 Kathleen Min MD Sep 25, 2016 13:10
[2016-09-25 11:55] LABS: AUTOMATED NEUTROPHIL # 14.6 TH/MM3 (1.8-7.7); BASOPHIL # 0.3 TH/MM3 (0-0.2); EOSINOPHIL % 0.2 % (0.0-4.0); HEMATOCRIT 31.4 % (39.0-51.0); HEMOGLOBIN 10.2 GM/DL (13.0-17.0); LYMPH % 9.2 % (9.0-44.0); LYMPHOCYTE # 1.6 TH/MM3 (1.0-4.8); MEAN CELL VOLUME 84.4 FL (80.0-100.0); MEAN CORPUSCULAR HEMOGLOBIN 27.5 PG (27.0-34.0); MEAN CORPUSCULAR HGB CONC 32.5 % (32.0-36.0); MEAN PLATELET VOLUME 8.6 FL (7.0-11.0); MONO % 3.7 % (0.0-8.0); MONOCYTE # 0.6 TH/MM3 (0-0.9); NEUT % 84.9 % (16.0-70.0); PLATELET COUNT 668 TH/MM3 (150-450); RED BLOOD COUNT 3.72 MIL/MM3 (4.50-5.90); RED CELL DISTRIBUTION WIDTH 16.5 % (11.6-17.2); WHITE BLOOD COUNT 17.1 TH/MM3 (4.0-11.0)
--- NOTE | 2016-09-25 11:56 | RADHPO ---
EXAM DATE/TIME: 09/25/2016 11:45 [place] COMPARISON: CHEST SINGLE AP, September 17, 2016, 10:12. INDICATIONS : Fever MEDICAL HISTORY : Diabetes mellitus type II. SURGICAL HISTORY : None. ENCOUNTER: Subsequent ACUITY: 2 months PAIN SCORE: Non-responsive. LOCATION: Bilateral chest FINDINGS: Patchy air space disease is present in the right upper lobe. Left lung is clear. Heart and pulmonar y vascularity are normal. CONCLUSION: Developing patchy air space disease right upper lobe. Conrad Stewart MD FACR on September 25, 2016 at 11:53 Board Certified Radiologist. This report was verified electronically.
[2016-09-25 11:58] LABS: BICARBONATE 26.4 MEQ/L (21.0-32.0); CALCIUM 9.5 MG/DL (8.5-10.1)
[2016-09-25 11:59] LABS: PROTHROMBIN TIME - PATIENT 11.3 SEC (9.8-11.6)
[2016-09-25 12:06] LABS: CREATININE 0.7 MG/DL (0.60-1.30)
[2016-09-25 13:45] LABS: HEMATOCRIT 29.9 % (39.0-51.0); HEMOGLOBIN 9.6 GM/DL (13.0-17.0)
--- NOTE | 2016-09-25 13:50 | PD.CONS ---
[facility] Service Critical Care Medicine Consult Requested By Dr. Min. Thank you Dr. Min for allowing us to participate in this patient's care Reason for Consult ICU management Primary Care Physician No Primary Care Physician History of Present Illness 46-year-old rather unfortunate male with known history of brain abscess, frontal CVA, neuro Behcet's syndrome who was originally admitted to the hospital because of failure to thrive, decreased oral intake. Patient initial workup indicated sepsis with urinary tract infection. Patient was treated for that and was doing well. GI was consulted in which place a PEG tube for feeding for continued management and care. Patient does have sacral decubitus which is being managed by wound care nursing staff. Patient was in [place] for long-term care because of unable to place the patient in a facility. Patient was doing well until today when nursing staff notified attending physician that patient had a rather significant lower GI bleed with copious bright red blood, maroon blood clots, melena. At that time patient was rather tachycardic up to 148, blood pressure was taken after that and found to be 94/ 69. Temperature 101.1. Because of those reasons patient was transferred to ICU for stabilization. Patient was given 1 L fluid bolus. Blood pressure was monitored closely. Workup was entertained for sepsis secondary to the fever. Workup did indicate significant leukocytosis, chest x-ray with right upper lung consolidation. GI was called by attending team and transferred to [facility] is being arranged for emergent endoscopy due to the acute GI bleed. Patient has been started on empiric antibiotics include vancomycin and Zosyn. Blood cultures have been taken. Awaiting sputum culture. This patient was being transferred to [facility] ICU it was indicated by executive director of nursing that a critical care consult should be placed. Hence critical care was consulted to assume medical management in the ICU. Review of Systems ROS Limitations: Clinical Condition Past Family Social History Allergies: Coded Allergies: *MDRO Multi-Drug Resistant Organism (Verified Adverse Reaction, Unknown, ) VRE (buttock)-09/20/16 Uncoded Allergies: ADHESIVE TAPE (Allergy, Severe, 09/21/16) BLISTERS Past Medical History Unable to obtain information from the patient, information taken from medical records neuro-Behcet's diagnosed at [place] left frontal CVA, bedbound, nonverbal mural thrombus brain abscess meningitis hypertension diabetes Past Surgical History Unable to obtain information from the patient, information taken from medical records Right chest tube PEG tube Reported Medications Reported Meds & Active Scripts Active Active Prescriptions or Reported Medications Unobtainable Family History Unable to obtain from the patient, records indicate noncontributory Social History Unable to obtain from patient. Records do not indicate any use of tobacco, alcohol or illicit drugs. Physical Exam Vital Signs Vital Signs Date Time Temp Pulse Resp B/P Pulse Ox O2 Delivery O2 Flow Rate FiO2 09/25/16 13:14 100.7 09/25/16 13:00 118 14 126/80 98 09/25/16 12:30 122 16 117/70 96 09/25/16 12:00 118 14 120/74 97 09/25/16 11:30 118 16 107/75 96 09/25/16 11:16 110/78 09/25/16 11:00 101.1 112 24 94/69 96 09/25/16 09:52 94 09/25/16 08:00 97.9 148 25 121/88 98 09/24/16 20:00 99.8 127 20 122/82 98 Laboratory Laboratory Tests Test 09/25/16 09/25/16 07:45 11:30 Hemoglobin 11.2 10.2 Hematocrit 34.5 31.4 White Blood Count 17.1 Red Blood Count 3.72 Mean Corpuscular Volume 84.4 Mean Corpuscular Hemoglobin 27.5 Mean Corpuscular Hemoglobin 32.5 Concent Red Cell Distribution Width 16.5 Platelet Count 668 Mean Platelet Volume 8.6 Neutrophils (%) (Auto) 84.9 Lymphocytes (%) (Auto) 9.2 Monocytes (%) (Auto) 3.7 Eosinophils (%) (Auto) 0.2 Basophils (%) (Auto) 2.0 Neutrophils # (Auto) 14.6 Lymphocytes # (Auto) 1.6 Monocytes # (Auto) 0.6 Eosinophils # (Auto) 0.0 Basophils # (Auto) 0.3 CBC Comment AUTO DIFF Differential Comment AUTO DIFF CONFIRMED Prothrombin Time 11.3 Prothromb Time International 1.0 Ratio Activated Partial 33.1 Thromboplast Time Sodium Level 137 Potassium Level 4.2 Chloride Level 100 Carbon Dioxide Level 26.4 Anion Gap 11 Blood Urea Nitrogen 14 Creatinine 0.70 Estimat Glomerular Filtration 148 Rate Random Glucose 146 Calcium Level 9.5 Date/Time Procedure Status Source Growth 09/25/16 11:30 Aerobic Blood Culture Received Blood Peripheral Pending 09/25/16 11:30 Anaerobic Blood Culture Received Blood Peripheral Pending 09/25/16 06:50 Stool Occult Blood (STAR) - Final Complete Stool Stool HEMOCCULT POSITIVE Result Diagram: 09/25/16 1130 09/25/16 1130 Septic Shock Reassessment Heart: Irregular (sinus tachycardia) Lungs: Clear Skin: Warm, Moist Peripheral Pulses: Bounding Right Radial Bounding Left Radial Capillary Refill: Brisk, <2 seconds Assessment and Plan Problem List: (1) Severe sepsis ICD Code: A41.9 Status: Acute (2) GI bleed ICD Code: K92.2 Status: Acute (3) Leucocytosis ICD Code: D72.829 Status: Acute (4) Fever ICD Code: R50.9 Status: Acute (5) Pneumonia involving right lung ICD Code: J18.9 Status: Acute (6) 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 Assessment and Plan NEUROLOGY 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 Continue to monitor neurological function Continue Prozac PULMONOLOGY Right lung pneumonia Continue O2 supplementation maintain O2 sats greater than 92% Start duo nebs CARDIOLOGY Low blood pressure, likely secondary to GI bleed versus shock Sinus tachycardia 1 L normal saline bolus at this time Continue monitor cardiac function, keep map greater than 65 Continue with NS@84ml/hr GASTROENTEROLOGY Large acute GI bleed Patient started on Protonix IV Hold Lovenox GI consulted for emergent endoscopy Monitor hemoglobin every 6 hours Typing and screening, transfuse if hemoglobin below 8.0 RENAL Continue IV fluids Start ICU electrolyte replacement protocol INFECTION DISEASE Severe sepsis, with tachycardia, leukocytosis, right upper lung pneumonia Sacral decubitus Start empirical antibiotics include vancomycin and Zosyn Blood cultures were taken, awaiting urinalysis, awaiting sputum culture Infectious disease following the patient Pertinent cultures 09/10/16 Wound culture from sacral decubitus: Pseudo-fluoresceins/[place], enterococcus faecalis, enterococcus faecium VRE 08/26/16 urine culture with Daphney parapsilosis ENDOCRINOLOGY Hyperglycemia, mild Check hemoglobin A1c Start Accu-Cheks with sliding scale insulin if needed HEMATOLOGY Continue to follow hemoglobin and transfuse if hemoglobin below 8.0 PROPHYLAXIS Protonix for GI protection Hold Lovenox at this time due to acute lower GI bleed, start sequential compression devices LINES Peripheral IVs Critical care time 75 minutes excluding procedures 1642 Addendum: Patient is seen and examined agreed with above assessment and plan. s/p EGD which showed no signs of active bleeding per nursing staff ( report unavailable) plan for possible colonoscopy tomorrow. Continue with IVF, abx per ID discussed with Dr. Valdivia. Ede Richardson Sep 25, 2016 13:50 Angela Carver MD Sep 25, 2016 16:44
[2016-09-25 14:06] LABS: PHOSPHORUS 2.8 MG/DL (2.5-4.9)
[2016-09-25] MEDS: PIPERACIL-TAZO 4.5 GM PREMIX 100 ML IV SCH ×2 (14:30→22:30)
--- NOTE | 2016-09-25 15:15 | HHI.GIFU ---
GI Follow-up Note Consult Follow-up Subjective: Patient laying in bed comfortably, no new complaints except bloody Bowel movements x 2 earlier Objective: PHYSICAL EXAMINATION: Vitals signs stable No fever HEENT: Pupils round and reactive to light; normocephalic; atraumatic; no jaundice. Throat is clear. NECK: Neck is supple, no JVD, no lymphadenopathy. CHEST: Chest is clear to auscultation and percussion. CARDIAC: Regular rate and rhythm with no murmur gallop or rubs. ABDOMEN: Soft, nondistended, nontender; no hepatosplenomegaly; bowel sounds are present in all four quadrants. EXTREMITIES: No clubbing, cyanosis, or edema. SKIN: Normal; no rash; no jaundice. CAN OPERATOR: No focal deficits; alert and oriented times three. Available Data (labs, X- Rays, Procedues) : Vital Signs Date Time Temp Pulse Resp B/P Pulse Ox O2 Delivery O2 Flow Rate FiO2 09/25/16 14:20 102.6 130 24 116/72 99 09/25/16 14:18 99 Nasal Cannula 2 09/25/16 13:45 124 15 121/76 97 09/25/16 13:14 100.7 09/25/16 13:00 118 14 126/80 98 09/25/16 12:30 122 16 117/70 96 09/25/16 12:00 118 14 120/74 97 09/25/16 11:30 118 16 107/75 96 09/25/16 11:16 110/78 09/25/16 11:00 101.1 112 24 94/69 96 09/25/16 09:52 94 09/25/16 08:00 97.9 148 25 121/88 98 Last Impressions Chest X-Ray 09/25/16 0000 Signed Impressions: Service Date/Time: Sunday, September 25, 2016 11:45 - CONCLUSION: Developing patchy air space disease right upper lobe. Conrad Stewart MD FACR Abdomen/Pelvis CT 09/17/16 0000 Signed Impressions: Service Date/Time: Saturday, September 17, 2016 23:35 - CONCLUSION: 1. Constipation. 2. No acute abnormality. Vishal Beckford Jr., MD Renal Ultrasound 08/28/16 0000 Signed Impressions: Service Date/Time: Sunday, August 28, 2016 20:03 - CONCLUSION: Mild increased echotexture of both kidneys. Baldev Vu MD Upper Extremity Ultrasound 08/19/16 0000 Signed Impressions: Service Date/Time: Friday, August 19, 2016 22:32 - CONCLUSION: Left cephalic vein occlusive thrombus noted in the antecubital fossa. Baldev Vu MD Lumbar Puncture Fluoroscopy 08/17/16 0000 Signed Impressions: Service Date/Time: Wednesday, August 17, 2016 12:26 - CONCLUSION: Uncomplicated fluoroscopically guided lumbar puncture. Vishal Beckford Jr., MD Brain MRI 08/17/16 0000 Signed Impressions: Service Date/Time: Wednesday, August 17, 2016 13:28 - CONCLUSION: Remote long-standing areas of abnormality in the brainstem and middle cerebellar peduncle consistent with remote infarcts or contusion. No acute intracranial abnormality. Chacho Bright MD Abdomen X-Ray 08/17/16 0000 Signed Impressions: Service Date/Time: Wednesday, August 17, 2016 13:02 - CONCLUSION: No evidence of obstruction. No MRI incompatible foreign body is identified. Chacho Bright MD Head CT 08/16/16 0000 Signed Impressions: Service Date/Time: Tuesday, August 16, 2016 09:55 - CONCLUSION: Chronic ischemic changes left frontal lobe possibly from evidence of previous ventriculostomy placement, unchanged. No acute intracranial abnormality. Gen Potter MD Modified Barium Swallow 08/15/16 0000 Signed Impressions: Service Date/Time: Monday, August 15, 2016 00:00 - CONCLUSION: See report above and speech pathology report Chacho Bright MD Laboratory Tests Test 09/23/16 09/25/16 09/25/16 09/25/16 18:30 07:45 11:30 13:15 Stool C. difficile Toxin (PCR) NEGATIVE Stl C. difficile Toxin PRESUMPTIVE Epiderm 027 NEGATIVE Hemoglobin 11.2 GM/DL 10.2 GM/DL 9.6 GM/DL Hematocrit 34.5 % 31.4 % 29.9 % White Blood Count 17.1 TH/MM3 Red Blood Count 3.72 MIL/MM3 Mean Corpuscular Volume 84.4 FL Mean Corpuscular Hemoglobin 27.5 PG Mean Corpuscular Hemoglobin 32.5 % Concent Red Cell Distribution Width 16.5 % Platelet Count 668 TH/MM3 Mean Platelet Volume 8.6 FL Neutrophils (%) (Auto) 84.9 % Lymphocytes (%) (Auto) 9.2 % Monocytes (%) (Auto) 3.7 % Eosinophils (%) (Auto) 0.2 % Basophils (%) (Auto) 2.0 % Neutrophils # (Auto) 14.6 TH/MM3 Lymphocytes # (Auto) 1.6 TH/MM3 Monocytes # (Auto) 0.6 TH/MM3 Eosinophils # (Auto) 0.0 TH/MM3 Basophils # (Auto) 0.3 TH/MM3 CBC Comment AUTO DIFF Differential Comment AUTO DIFF CONFIRMED Prothrombin Time 11.3 SEC Prothromb Time International 1.0 RATIO Ratio Activated Partial 33.1 SEC Thromboplast Time Sodium Level 137 MEQ/L Potassium Level 4.2 MEQ/L Chloride Level 100 MEQ/L Carbon Dioxide Level 26.4 MEQ/L Anion Gap 11 MEQ/L Blood Urea Nitrogen 14 MG/DL Creatinine 0.70 MG/DL Estimat Glomerular Filtration 148 ML/MIN Rate Random Glucose 146 MG/DL Calcium Level 9.5 MG/DL Phosphorus Level 2.8 MG/DL Lactic Acid Level 1.8 mmol/L Allergies Coded Allergies Type Severity Reaction Last Updated Verified *MDRO Multi-Drug Resistant Organism Adverse Reaction Unknown 09/23/16 Yes Uncoded Allergies Type Severity Reaction Last Updated Verified ADHESIVE TAPE Allergy Severe 09/21/16 Active Scripts Medications Dose Route/Sig Days Date Category Active Prescriptions or Reported Medications Unobtainable Rx ASSESSMENT/PLAN: Reconsulted for active gi bleeding by Grayson BRANTLEY. Patient transferred stat to [facility]. Egd planned today. Monitor labs. Antibiotics. CT scan abd/pelvis. ICU monitoring. Colonoscopy if egd -ve. It was a pleasure seeing Devonte Mendoza Thank you for this consult. Entered by: Gadiel Porter MD Sep 25, 2016 15:15
[2016-09-25 16:09] LABS: AUTOMATED NEUTROPHIL # 15.1 TH/MM3 (1.8-7.7); BASOPHIL # 0.1 TH/MM3 (0-0.2); BASOPHIL % 0.4 % (0.0-2.0); EOSINOPHIL % 0.1 % (0.0-4.0); HEMATOCRIT 27.4 % (39.0-51.0); HEMOGLOBIN 8.6 GM/DL (13.0-17.0); LYMPH % 6.1 % (9.0-44.0); MEAN CELL VOLUME 84.6 FL (80.0-100.0); MEAN CORPUSCULAR HEMOGLOBIN 26.5 PG (27.0-34.0); MEAN CORPUSCULAR HGB CONC 31.3 % (32.0-36.0); MEAN PLATELET VOLUME 8.8 FL (7.0-11.0); MONO % 5.6 % (0.0-8.0); NEUT % 87.8 % (16.0-70.0); PLATELET COUNT 509 TH/MM3 (150-450); RED BLOOD COUNT 3.24 MIL/MM3 (4.50-5.90); RED CELL DISTRIBUTION WIDTH 16.6 % (11.6-17.2); WHITE BLOOD COUNT 17.2 TH/MM3 (4.0-11.0)
[2016-09-25] MEDS: INSULIN NovoLIN REGULAR SUPPLEMENTAL SCALE SQ SCH ×2 (17:00→22:31)
--- NOTE | 2016-09-25 17:58 | HHI.IDPN ---
Subjective Subjective Remarks ID Xcover pt was transfereed today after developped bloody diarrhea with clots and fever up to 103 started on zosyn, vancomycin BP stable, off pressors Antibiotics Zosyn IV vancomycin Lines Line sites with no e.o infection Past Medical History reviewed Allergies: Coded Allergies: *MDRO Multi-Drug Resistant Organism (Verified Adverse Reaction, Unknown, ) VRE (buttock)-09/20/16 Uncoded Allergies: ADHESIVE TAPE (Allergy, Severe, 09/21/16) BLISTERS Objective . Vital Signs Date Time Temp Pulse Resp B/P Pulse Ox O2 Delivery O2 Flow Rate FiO2 09/25/16 15:36 99.5 120 18 97/65 100 09/25/16 15:30 120 17 95/69 98 09/25/16 15:15 121 17 94/68 97 09/25/16 15:11 99.6 122 15 83/64 98 09/25/16 14:20 102.6 130 24 116/72 99 09/25/16 14:18 99 Nasal Cannula 2 09/25/16 13:45 124 15 121/76 97 09/25/16 13:14 100.7 09/25/16 13:00 118 14 126/80 98 09/25/16 12:30 122 16 117/70 96 09/25/16 12:00 118 14 120/74 97 09/25/16 11:30 118 16 107/75 96 09/25/16 11:16 110/78 09/25/16 11:00 101.1 112 24 94/69 96 09/25/16 09:52 94 09/25/16 08:00 97.9 148 25 121/88 98 09/24/16 20:00 99.8 127 20 122/82 98 09/24/16 09/24/16 09/25/16 15:00 23:00 07:00 Intake Total 5858 ml 0 ml Balance 5858 ml 0 ml Intake Oral 0 ml IV Total 3411 ml Tube Feeding 2447 ml # Voids 1 2 # Bowel Movements 0 1 . Laboratory Tests Test 09/25/16 09/25/16 09/25/16 09/25/16 07:45 11:30 13:15 15:39 Hemoglobin 11.2 GM/DL 10.2 GM/DL 9.6 GM/DL 8.6 GM/DL Hematocrit 34.5 % 31.4 % 29.9 % 27.4 % White Blood Count 17.1 TH/MM3 17.2 TH/MM3 Red Blood Count 3.72 MIL/MM3 3.24 MIL/MM3 Mean Corpuscular Volume 84.4 FL 84.6 FL Mean Corpuscular Hemoglobin 27.5 PG 26.5 PG Mean Corpuscular Hemoglobin 32.5 % 31.3 % Concent Red Cell Distribution Width 16.5 % 16.6 % Platelet Count 668 TH/MM3 509 TH/MM3 Mean Platelet Volume 8.6 FL 8.8 FL Neutrophils (%) (Auto) 84.9 % 87.8 % Lymphocytes (%) (Auto) 9.2 % 6.1 % Monocytes (%) (Auto) 3.7 % 5.6 % Eosinophils (%) (Auto) 0.2 % 0.1 % Basophils (%) (Auto) 2.0 % 0.4 % Neutrophils # (Auto) 14.6 TH/MM3 15.1 TH/MM3 Lymphocytes # (Auto) 1.6 TH/MM3 1.0 TH/MM3 Monocytes # (Auto) 0.6 TH/MM3 1.0 TH/MM3 Eosinophils # (Auto) 0.0 TH/MM3 0.0 TH/MM3 Basophils # (Auto) 0.3 TH/MM3 0.1 TH/MM3 CBC Comment AUTO DIFF DIFF FINAL Differential Comment AUTO DIFF CONFIRMED Laboratory Tests Test 09/25/16 09/25/16 11:30 13:15 Sodium Level 137 MEQ/L Potassium Level 4.2 MEQ/L Chloride Level 100 MEQ/L Carbon Dioxide Level 26.4 MEQ/L Anion Gap 11 MEQ/L Blood Urea Nitrogen 14 MG/DL Creatinine 0.70 MG/DL Estimat Glomerular Filtration 148 ML/MIN Rate Random Glucose 146 MG/DL Calcium Level 9.5 MG/DL Phosphorus Level 2.8 MG/DL Lactic Acid Level 1.8 mmol/L Microbiology Date/Time Procedure Status Source Growth 09/25/16 06:50 Stool Occult Blood (STAR) - Final Complete Stool Stool HEMOCCULT POSITIVE 09/25/16 11:30 Aerobic Blood Culture Received Blood Peripheral Pending 09/25/16 11:30 Anaerobic Blood Culture Received Blood Peripheral Pending Imaging Last Impressions Chest X-Ray 09/25/16 0000 Signed Impressions: Service Date/Time: Sunday, September 25, 2016 11:45 - CONCLUSION: Developing patchy air space disease right upper lobe. Conrad Stewart MD FACR Abdomen/Pelvis CT 09/17/16 0000 Signed Impressions: Service Date/Time: Saturday, September 17, 2016 23:35 - CONCLUSION: 1. Constipation. 2. No acute abnormality. Vishal Beckford Jr., MD Renal Ultrasound 08/28/16 Signed Impressions: Service Date/Time: Sunday, August 28, 2016 20:03 - CONCLUSION: Mild increased echotexture of both kidneys. Baldev Vu MD Upper Extremity Ultrasound 08/19/16 0000 Signed Impressions: Service Date/Time: Friday, August 19, 2016 22:32 - CONCLUSION: Left cephalic vein occlusive thrombus noted in the antecubital fossa. Baldev Vu MD Lumbar Puncture Fluoroscopy 08/17/16 0000 Signed Impressions: Service Date/Time: Wednesday, August 17, 2016 12:26 - CONCLUSION: Uncomplicated fluoroscopically guided lumbar puncture. Vishal Beckford Jr., MD Brain MRI 08/17/16 Signed Impressions: Service Date/Time: Wednesday, August 17, 2016 13:28 - CONCLUSION: Remote long-standing areas of abnormality in the brainstem and middle cerebellar peduncle consistent with remote infarcts or contusion. No acute intracranial abnormality. Chacho Bright MD Abdomen X-Ray 08/17/16 0000 Signed Impressions: Service Date/Time: Wednesday, August 17, 2016 13:02 - CONCLUSION: No evidence of obstruction. No MRI incompatible foreign body is identified. Chacho Bright MD Head CT 08/16/16 0000 Signed Impressions: Service Date/Time: Tuesday, August 16, 2016 09:55 - CONCLUSION: Chronic ischemic changes left frontal lobe possibly from evidence of previous ventriculostomy placement, unchanged. No acute intracranial abnormality. Gen Potter MD Modified Barium Swallow 08/15/16 0000 Signed Impressions: Service Date/Time: Monday, August 15, 2016 00:00 - CONCLUSION: See report above and speech pathology report Chacho Bright MD Physical Exam GENERAL: Poorly nourished, chronically ill appearing patient, in no apparent distress. SKIN: Old scars on arms. Stage 2-3 healing clean sacral decubitus- no sign of infection Edges granulating nicesly ; center with palacio colored eschar, no signs of infx HEAD: Atraumatic. Normocephalic. No temporal or scalp tenderness. EYES: Pupils equal round and reactive. Extraocular motions intact. No scleral icterus. No injection or drainage. ENT: Nose without bleeding, purulent drainage or septal hematoma. moist mucosae NECK: Trachea midline. Supple, nontender, no meningeal signs. CARDIOVASCULAR: HS audible. No murmur. RESPIRATORY:. Breath sounds equal bilaterally. clear to auscultation GASTROINTESTINAL: Abdomen soft, non-tender, minimally distended. MUSCULOSKELETAL: Extremities without clubbing, cyanosis, or edema. Wasting and contractures NEUROLOGICAL: Awake and alert. Aphasic. Communicates with yes/no LE weakness but able to flex both limbs minimally. Contractures noted. Psych: unabe to assess IV line sites with no e.o infection. Assessment & Plan Remarks Diagnosis: (1) Neurologic type Behcet's syndrome (2) Fever, all bl clx remain negative (3) Leucocytosis: significantly worse (4) Buttock wound - no e/o infection; colonized with VRE, peudomonas New issue: new fever and bloody diarrhea sp EGD - no bleed ID'd ? New PNA RUL Plan: Follow blood and wound cultures cont zosyn, vanco for now chk stool for C.diff Isolate for VRE colonisation in the wound fu blood clx rechk UA, C+S consider to repeat CT dw RN Margie Fermin Dr, MD Sep 25, 2016 17:58
[2016-09-25 20:45] LABS: HEMATOCRIT 22.2 % (39.0-51.0)
[2016-09-25 20:50] LABS: HEMOGLOBIN 6.9 GM/DL (13.0-17.0)
[2016-09-25] MEDS: VANCOMYCIN INJ 1,200 MG in SODIUM CHLOR 0.9% 250 ML INJ 250 ML IV SCH (22:30)
[2016-09-25] MEDS: PANTOPRAZOLE INJ 80 MG in SODIUM CHLORIDE 0.9% INJ 100 ML IV SCH (22:31)
[2016-09-26] VITALS (15 sets, daily range): BP systolic 95–115; BP diastolic 65–80; PULSE 101–143; RESP 13–18; TEMP 98.9–100.2; O2SAT 96–100
[2016-09-26] MEDS: PIPERACIL-TAZO 4.5 GM PREMIX 100 ML IV SCH ×4 (02:18→20:10)
[2016-09-26] MEDS: INSULIN NovoLIN REGULAR SUPPLEMENTAL SCALE SQ SCH ×4 (04:06→23:00)
[2016-09-26] MEDS: VANCOMYCIN INJ 1,200 MG in SODIUM CHLOR 0.9% 250 ML INJ 250 ML IV SCH ×2 (05:41→17:17)
[2016-09-26 06:13] LABS: AUTOMATED NEUTROPHIL # 13.3 TH/MM3 (1.8-7.7); BASOPHIL % 0.3 % (0.0-2.0); EOSINOPHIL % 0.1 % (0.0-4.0); HEMATOCRIT 32.4 % (39.0-51.0); HEMOGLOBIN 10.6 GM/DL (13.0-17.0); LYMPHOCYTE # 1.6 TH/MM3 (1.0-4.8); MEAN CELL VOLUME 84.2 FL (80.0-100.0); MEAN CORPUSCULAR HEMOGLOBIN 27.7 PG (27.0-34.0); MEAN CORPUSCULAR HGB CONC 32.9 % (32.0-36.0); MEAN PLATELET VOLUME 8.3 FL (7.0-11.0); NEUT % 83.6 % (16.0-70.0); PLATELET COUNT 374 TH/MM3 (150-450); RED BLOOD COUNT 3.84 MIL/MM3 (4.50-5.90); RED CELL DISTRIBUTION WIDTH 14.8 % (11.6-17.2); WHITE BLOOD COUNT 15.9 TH/MM3 (4.0-11.0)
[2016-09-26 06:35] LABS: CALCIUM 8.6 MG/DL (8.5-10.1); CREATININE 0.63 MG/DL (0.60-1.30); MAGNESIUM 1.7 MG/DL (1.5-2.5); PHOSPHORUS 3.2 MG/DL (2.5-4.9)
[2016-09-26 08:38] LABS: BANDS 7 % (0-6); LYMPHOCYTES 9 % (9-44); MONOCYTES 6 % (0-8); MYELOCYTES 1 % (0-0); NEUTROPHIL # MANUAL DIFF 13.5 TH/MM3 (1.8-7.7); POLYS (SEG NEUTROPHILS) 77 % (16-70)
--- NOTE | 2016-09-26 08:44 | HHI.CCPN ---
Subjective Remarks/Hospital Course 46-year-old rather unfortunate male with known history of brain abscess, frontal CVA, neuro Behcet's syndrome who was originally admitted to the hospital because of failure to thrive, decreased oral intake. Patient initial workup indicated sepsis with urinary tract infection. Patient was treated for that and was doing well. GI was consulted in which place a PEG tube for feeding for continued management and care. Patient does have sacral decubitus which is being managed by wound care nursing staff. Patient was in [facility] for long-term care because of unable to place the patient in a facility. Patient was doing well until today when nursing staff notified attending physician that patient had a rather significant lower GI bleed with copious bright red blood, maroon blood clots, melena. At that time patient was rather tachycardic up to 148, blood pressure was taken after that and found to be 94/ 69. Temperature 101.1. Because of those reasons patient was transferred to ICU for stabilization. Patient was given 1 L fluid bolus. Blood pressure was monitored closely. Workup was entertained for sepsis secondary to the fever. Workup did indicate significant leukocytosis, chest x-ray with right upper lung consolidation. GI was called by attending team and transferred to [facility] is being arranged for emergent endoscopy due to the acute GI bleed. Patient has been started on empiric antibiotics include vancomycin and Zosyn. Blood cultures have been taken. Awaiting sputum culture. This patient was being transferred to [facility] ICU it was indicated by clinical nursing manager that a critical care consult should be placed. Hence critical care was consulted to assume medical management in the ICU. 09/26 Patient was transferred from yesterday for GI bleed s/p EGD yesterday which showed no signs of active bleeding. For Colonoscopy today. s/p transfusion 3u PRBC overnight for Hgb 6.9 repeat Hgb 10.6 this morning. Afebrile. Objective Vital Signs Date Time Temp Pulse Resp B/P Pulse Ox O2 Delivery O2 Flow Rate FiO2 09/26/16 07:06 100 Nasal Cannula 3.00 09/26/16 06:00 121 09/26/16 04:00 98.9 18 110/74 Intake and Output 09/25/16 09/25/16 09/26/16 08:00 16:00 00:00 Intake Total 500 ml 699 ml Output Total 52 ml 500 ml Balance 448 ml 199 ml Result Diagram: 09/26/16 0559 09/26/16 0559 Other Results Laboratory Tests Test 09/25/16 09/25/16 09/25/16 09/25/16 11:30 13:15 13:25 15:39 White Blood Count 17.1 TH/MM3 17.2 TH/MM3 Red Blood Count 3.72 MIL/MM3 3.24 MIL/MM3 Hemoglobin 10.2 GM/DL 9.6 GM/DL 8.6 GM/DL Hematocrit 31.4 % 29.9 % 27.4 % Mean Corpuscular Volume 84.4 FL 84.6 FL Mean Corpuscular Hemoglobin 27.5 PG 26.5 PG Mean Corpuscular Hemoglobin 32.5 % 31.3 % Concent Red Cell Distribution Width 16.5 % 16.6 % Platelet Count 668 TH/MM3 509 TH/MM3 Mean Platelet Volume 8.6 FL 8.8 FL Neutrophils (%) (Auto) 84.9 % 87.8 % Lymphocytes (%) (Auto) 9.2 % 6.1 % Monocytes (%) (Auto) 3.7 % 5.6 % Eosinophils (%) (Auto) 0.2 % 0.1 % Basophils (%) (Auto) 2.0 % 0.4 % Neutrophils # (Auto) 14.6 TH/MM3 15.1 TH/MM3 Lymphocytes # (Auto) 1.6 TH/MM3 1.0 TH/MM3 Monocytes # (Auto) 0.6 TH/MM3 1.0 TH/MM3 Eosinophils # (Auto) 0.0 TH/MM3 0.0 TH/MM3 Basophils # (Auto) 0.3 TH/MM3 0.1 TH/MM3 CBC Comment AUTO DIFF DIFF FINAL Differential Comment AUTO DIFF CONFIRMED Prothrombin Time 11.3 SEC Prothromb Time International 1.0 RATIO Ratio Activated Partial 33.1 SEC Thromboplast Time Sodium Level 137 MEQ/L Potassium Level 4.2 MEQ/L Chloride Level 100 MEQ/L Carbon Dioxide Level 26.4 MEQ/L Anion Gap 11 MEQ/L Blood Urea Nitrogen 14 MG/DL Creatinine 0.70 MG/DL Estimat Glomerular Filtration 148 ML/MIN Rate Random Glucose 146 MG/DL Calcium Level 9.5 MG/DL Phosphorus Level 2.8 MG/DL Lactic Acid Level 1.8 mmol/L Blood Type A POSITIVE Antibody Screen NEGATIVE Blood Bank Comment Crossmatch Leukocyte-Reduced Red Blood Cells Test 09/25/16 09/26/16 21:40 05:59 Hemoglobin 6.9 GM/DL 10.6 GM/DL Hematocrit 22.2 % 32.4 % White Blood Count 15.9 TH/MM3 Red Blood Count 3.84 MIL/MM3 Mean Corpuscular Volume 84.2 FL Mean Corpuscular Hemoglobin 27.7 PG Mean Corpuscular Hemoglobin 32.9 % Concent Red Cell Distribution Width 14.8 % Platelet Count 374 TH/MM3 Mean Platelet Volume 8.3 FL Neutrophils (%) (Auto) 83.6 % Lymphocytes (%) (Auto) 10.0 % Monocytes (%) (Auto) 6.0 % Eosinophils (%) (Auto) 0.1 % Basophils (%) (Auto) 0.3 % Neutrophils # (Auto) 13.3 TH/MM3 Lymphocytes # (Auto) 1.6 TH/MM3 Monocytes # (Auto) 1.0 TH/MM3 Eosinophils # (Auto) 0.0 TH/MM3 Basophils # (Auto) 0.0 TH/MM3 CBC Comment AUTO DIFF Sodium Level 135 MEQ/L Potassium Level 4.2 MEQ/L Chloride Level 101 MEQ/L Carbon Dioxide Level 26.0 MEQ/L Anion Gap 8 MEQ/L Blood Urea Nitrogen 8 MG/DL Creatinine 0.63 MG/DL Estimat Glomerular Filtration 168 ML/MIN Rate Random Glucose 86 MG/DL Calcium Level 8.6 MG/DL Phosphorus Level 3.2 MG/DL Magnesium Level 1.7 MG/DL Imaging Last Impressions Chest X-Ray 09/25/16 0000 Signed Impressions: Service Date/Time: Sunday, September 25, 2016 11:45 - CONCLUSION: Developing patchy air space disease right upper lobe. Conrad Stewart MD FACR Abdomen/Pelvis CT 09/17/16 0000 Signed Impressions: Service Date/Time: Saturday, September 17, 2016 23:35 - CONCLUSION: 1. Constipation. 2. No acute abnormality. Vishal Beckford Jr., MD Renal Ultrasound 08/28/16 0000 Signed Impressions: Service Date/Time: Sunday, August 28, 2016 20:03 - CONCLUSION: Mild increased echotexture of both kidneys. Baldev Vu MD Upper Extremity Ultrasound 08/19/16 0000 Signed Impressions: Service Date/Time: Friday, August 19, 2016 22:32 - CONCLUSION: Left cephalic vein occlusive thrombus noted in the antecubital fossa. Baldev Vu MD Lumbar Puncture Fluoroscopy 08/17/16 0000 Signed Impressions: Service Date/Time: Wednesday, August 17, 2016 12:26 - CONCLUSION: Uncomplicated fluoroscopically guided lumbar puncture. Vishal Beckford Jr., MD Brain MRI 08/17/16 Signed Impressions: Service Date/Time: Wednesday, August 17, 2016 13:28 - CONCLUSION: Remote long-standing areas of abnormality in the brainstem and middle cerebellar peduncle consistent with remote infarcts or contusion. No acute intracranial abnormality. Chacho Bright MD Abdomen X-Ray 08/17/16 Signed Impressions: Service Date/Time: Wednesday, August 17, 2016 13:02 - CONCLUSION: No evidence of obstruction. No MRI incompatible foreign body is identified. Chacho Bright MD Head CT 08/16/16 Signed Impressions: Service Date/Time: Tuesday, August 16, 2016 09:55 - CONCLUSION: Chronic ischemic changes left frontal lobe possibly from evidence of previous ventriculostomy placement, unchanged. No acute intracranial abnormality. Gen Potter MD Modified Barium Swallow 08/15/16 Signed Impressions: Service Date/Time: Monday, August 15, 2016 00:00 - CONCLUSION: See report above and speech pathology report Chacho Bright MD Objective Remarks GENERAL: Patient i slying in bed in NAD SKIN: Warm and dry. HEAD: Normocephalic. EYES: No scleral icterus. No injection or drainage. NECK: Supple, trachea midline. No JVD or lymphadenopathy. CARDIOVASCULAR: Tachycardic without murmurs, gallops, or rubs. RESPIRATORY: Breath sounds equal bilaterally. No accessory muscle use. GASTROINTESTINAL: Abdomen soft, non-tender, nondistended. MUSCULOSKELETAL: No cyanosis, or edema. BACK: Nontender without obvious deformity. No CVA tenderness. A/P Problem List: (1) Severe sepsis ICD Code: A41.9 Status: Acute (2) GI bleed ICD Code: K92.2 Status: Acute (3) Leucocytosis ICD Code: D72.829 Status: Acute (4) Fever ICD Code: R50.9 Status: Acute (5) Pneumonia involving right lung ICD Code: J18.9 Status: Acute (6) 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 Assessment and Plan NEUROLOGY 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 Monitor neuro status and avoid sedatives Continue Prozac PULMONOLOGY Right lung pneumonia Continue O2 maintain O2 sats > 92% Bronchodilators CARDIOLOGY Low blood pressure, likely secondary to GI bleed versus shock Sinus tachycardia Place on Lopressor 12.5mg BID monitor HR and BP keep MAP>65mmHg Continue with NS@84ml/hr. Lactic acid 1.8 GASTROENTEROLOGY GI bleed Continue with Protonix infusion. -s/p EGD / no signs of active bleeding for colonoscopy today. -S/p transfusion 3units PRBC overnight monitor H/H. RENAL Monitor renal function, I/O's, electrolyte replacement protocol INFECTION DISEASE Sepsis Leukocytosis, Right upper lung pneumonia Sacral decubitus Continue with abx per ID (vancomycin and Zosyn) Follow up on cultures For repeat CT abdomen/pelvis today Pertinent cultures 09/10/16 Wound culture from sacral decubitus: Pseudo-fluoresceins/[place], enterococcus faecalis, enterococcus faecium VRE 08/26/16 urine culture with Daphney parapsilosis ENDOCRINOLOGY SSI for glycemic control HEMATOLOGY Monitor CBC , s/p transfusions 3u PRBC 09/25 , Keep Hgb >8.0 PROPHYLAXIS Protonix for GI protection SCD for DVT prophylaxis, chemical AC prophylaxis held for probable GI bleed LINES Peripheral IVs Level 3 Angela Carver MD Sep 26, 2016 08:44
[2016-09-26] MEDS: PANTOPRAZOLE INJ 80 MG in SODIUM CHLORIDE 0.9% INJ 100 ML IV SCH ×3 (08:48→20:10)
[2016-09-26] MEDS: FLUoxetine HCL 10 MG CAP PO SCH (08:49)
[2016-09-26] MEDS: METOPROLOL TARTRATE 25 MG TAB PO SCH ×2 (09:00→20:10)
[2016-09-26 10:41] LABS: HEMOGLOBIN A1C 6.6 % (4.3-6.0)
--- NOTE | 2016-09-26 12:58 | HHI.GIFU ---
GI Follow-up Note Consult Follow-up Subjective: Patient laying in bed comfortably, no new complaints except continued rectal bleeding Objective: PHYSICAL EXAMINATION: Vitals signs stable No fever HEENT: Pupils round and reactive to light; normocephalic; atraumatic; no jaundice. Throat is clear. NECK: Neck is supple, no JVD, no lymphadenopathy. CHEST: Chest is clear to auscultation and percussion. CARDIAC: Regular rate and rhythm with no murmur gallop or rubs. ABDOMEN: Soft, nondistended, nontender; no hepatosplenomegaly; bowel sounds are present in all four quadrants. EXTREMITIES: No clubbing, cyanosis, or edema. SKIN: Normal; no rash; no jaundice. [employer]: No focal deficits; alert and oriented times three. Available Data (labs, X- Rays, Procedues) : Last Impressions Chest X-Ray 09/25/16 0000 Signed Impressions: Service Date/Time: Sunday, September 25, 2016 11:45 - CONCLUSION: Developing patchy air space disease right upper lobe. Conrad Stewart MD FACR Abdomen/Pelvis CT 09/17/16 0000 Signed Impressions: Service Date/Time: Saturday, September 17, 2016 23:35 - CONCLUSION: 1. Constipation. 2. No acute abnormality. Vishal Beckford Jr., MD Renal Ultrasound 08/28/16 0000 Signed Impressions: Service Date/Time: Sunday, August 28, 2016 20:03 - CONCLUSION: Mild increased echotexture of both kidneys. Baldev Vu MD Upper Extremity Ultrasound 08/19/16 0000 Signed Impressions: Service Date/Time: Friday, August 19, 2016 22:32 - CONCLUSION: Left cephalic vein occlusive thrombus noted in the antecubital fossa. Baldev Vu MD Lumbar Puncture Fluoroscopy 08/17/16 0000 Signed Impressions: Service Date/Time: Wednesday, August 17, 2016 12:26 - CONCLUSION: Uncomplicated fluoroscopically guided lumbar puncture. Vishal Beckford Jr., MD Brain MRI 08/17/16 0000 Signed Impressions: Service Date/Time: Wednesday, August 17, 2016 13:28 - CONCLUSION: Remote long-standing areas of abnormality in the brainstem and middle cerebellar peduncle consistent with remote infarcts or contusion. No acute intracranial abnormality. Chacho Bright MD Abdomen X-Ray 08/17/16 0000 Signed Impressions: Service Date/Time: Wednesday, August 17, 2016 13:02 - CONCLUSION: No evidence of obstruction. No MRI incompatible foreign body is identified. Chacho Bright MD Head CT 08/16/16 0000 Signed Impressions: Service Date/Time: Tuesday, August 16, 2016 09:55 - CONCLUSION: Chronic ischemic changes left frontal lobe possibly from evidence of previous ventriculostomy placement, unchanged. No acute intracranial abnormality. Gen Potter MD Modified Barium Swallow 08/15/16 0000 Signed Impressions: Service Date/Time: Monday, August 15, 2016 00:00 - CONCLUSION: See report above and speech pathology report Chacho Bright MD Laboratory Tests Test 09/25/16 09/25/16 09/25/16 09/25/16 06:50 07:45 11:30 13:15 Stool C. difficile Toxin (PCR) NEGATIVE Stl C. difficile Toxin PRESUMPTIVE Epiderm 027 NEGATIVE Hemoglobin 11.2 GM/DL 10.2 GM/DL 9.6 GM/DL Hematocrit 34.5 % 31.4 % 29.9 % White Blood Count 17.1 TH/MM3 Red Blood Count 3.72 MIL/MM3 Mean Corpuscular Volume 84.4 FL Mean Corpuscular Hemoglobin 27.5 PG Mean Corpuscular Hemoglobin 32.5 % Concent Red Cell Distribution Width 16.5 % Platelet Count 668 TH/MM3 Mean Platelet Volume 8.6 FL Neutrophils (%) (Auto) 84.9 % Lymphocytes (%) (Auto) 9.2 % Monocytes (%) (Auto) 3.7 % Eosinophils (%) (Auto) 0.2 % Basophils (%) (Auto) 2.0 % Neutrophils # (Auto) 14.6 TH/MM3 Lymphocytes # (Auto) 1.6 TH/MM3 Monocytes # (Auto) 0.6 TH/MM3 Eosinophils # (Auto) 0.0 TH/MM3 Basophils # (Auto) 0.3 TH/MM3 CBC Comment AUTO DIFF Differential Comment AUTO DIFF CONFIRMED Prothrombin Time 11.3 SEC Prothromb Time International 1.0 RATIO Ratio Activated Partial 33.1 SEC Thromboplast Time Sodium Level 137 MEQ/L Potassium Level 4.2 MEQ/L Chloride Level 100 MEQ/L Carbon Dioxide Level 26.4 MEQ/L Anion Gap 11 MEQ/L Blood Urea Nitrogen 14 MG/DL Creatinine 0.70 MG/DL Estimat Glomerular Filtration 148 ML/MIN Rate Random Glucose 146 MG/DL Calcium Level 9.5 MG/DL Hemoglobin A1c 6.6 % Phosphorus Level 2.8 MG/DL Lactic Acid Level 1.8 mmol/L Blood Type A POSITIVE Antibody Screen NEGATIVE Blood Bank Comment Test 09/25/16 09/25/16 09/25/16 09/26/16 13:25 15:39 21:40 05:59 Crossmatch Leukocyte-Reduced Red Blood Cells Blood Bank Comment White Blood Count 17.2 TH/MM3 15.9 TH/MM3 Red Blood Count 3.24 MIL/MM3 3.84 MIL/MM3 Hemoglobin 8.6 GM/DL 6.9 GM/DL 10.6 GM/DL Hematocrit 27.4 % 22.2 % 32.4 % Mean Corpuscular Volume 84.6 FL 84.2 FL Mean Corpuscular Hemoglobin 26.5 PG 27.7 PG Mean Corpuscular Hemoglobin 31.3 % 32.9 % Concent Red Cell Distribution Width 16.6 % 14.8 % Platelet Count 509 TH/MM3 374 TH/MM3 Mean Platelet Volume 8.8 FL 8.3 FL Neutrophils (%) (Auto) 87.8 % 83.6 % Lymphocytes (%) (Auto) 6.1 % 10.0 % Monocytes (%) (Auto) 5.6 % 6.0 % Eosinophils (%) (Auto) 0.1 % 0.1 % Basophils (%) (Auto) 0.4 % 0.3 % Neutrophils # (Auto) 15.1 TH/MM3 13.3 TH/MM3 Lymphocytes # (Auto) 1.0 TH/MM3 1.6 TH/MM3 Monocytes # (Auto) 1.0 TH/MM3 1.0 TH/MM3 Eosinophils # (Auto) 0.0 TH/MM3 0.0 TH/MM3 Basophils # (Auto) 0.1 TH/MM3 0.0 TH/MM3 CBC Comment DIFF FINAL AUTO DIFF Differential Comment FINAL DIFF MANUAL Differential Total Cells 100 Counted Neutrophils % (Manual) 77 % Band Neutrophils % 7 % Lymphocytes % 9 % Monocytes % 6 % Neutrophils # (Manual) 13.5 TH/MM3 Myelocytes 1 % Platelet Estimate NORMAL Platelet Morphology Comment NORMAL Red Cell Morphology Comment NORMAL Sodium Level 135 MEQ/L Potassium Level 4.2 MEQ/L Chloride Level 101 MEQ/L Carbon Dioxide Level 26.0 MEQ/L Anion Gap 8 MEQ/L Blood Urea Nitrogen 8 MG/DL Creatinine 0.63 MG/DL Estimat Glomerular Filtration 168 ML/MIN Rate Random Glucose 86 MG/DL Calcium Level 8.6 MG/DL Phosphorus Level 3.2 MG/DL Magnesium Level 1.7 MG/DL Allergies Coded Allergies Type Severity Reaction Last Updated Verified *MDRO Multi-Drug Resistant Organism Adverse Reaction Unknown 09/23/16 Yes Uncoded Allergies Type Severity Reaction Last Updated Verified ADHESIVE TAPE Allergy Severe 09/21/16 Active Scripts Medications Dose Route/Sig Days Date Category Active Prescriptions or Reported Medications Unobtainable Rx ASSESSMENT/PLAN: Patient brought down to the OR for colonoscopy. Unable to reach sister/family for anesthesia consents for procedure. No active bleeding at present. H/H stable. Leave NPO till consents obtained. CT -p. It was a pleasure seeing Devonte Mendoza. Thank you for this consult. Entered by: Gadiel Porter MD Sep 26, 2016 12:58
[2016-09-26] MEDS: SODIUM CHLOR 0.9% 1000 ML INJ 1,000 ML IV SCH (13:30)
--- NOTE | 2016-09-26 13:54 | HHI.HCPN ---
Reason for visit a. To assist with evaluation and management of symptoms including: debility , b. To assist medical decision maker(s) with: better understanding of current medical conditions; weighing benefits/burdens of medical treatment options; making medical treatment decisions. . Subjective/Interval History Mr. 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 Pt presented to the ER 08/13/16 via EMs for decrease oral intake and sepsis. Palliative was consulted for clarifications of goals on 08/22/2016. At the time pt was still able to communicate, and mouth words. Palliative Care had made several attempts to call pt's significant other/ Patricia harrell, and had left messages. We had attempted to reach place of employment, and called Lois Currie, and called alternate number [phone]. Palliative Care has also sent letter to pt's requesting return call to palliative care, all of which has been ineffective. Pt was transferred to [facility]. On 09/26/2016 as pt had elevated temperature and leukocytosis, with chest X ray show upper lung consolidation. GI was notifed as pt had gi bleed. Pt was transferred to the main hospital, ICU and had emergent endoscopy. Pt awaits for colonscopy today. Pt is s/p transfusion 3 U PRBC. Pt hgb is 10.6 and 32.4. ID followed up and recommend contineu zosyn and vanco. Stools checked for C.diff. Pt on isolation for VRE colonization; Blood and wound cultures followed. On my exam today, pt just stares strait, made some attempt to nod yes or now, but unable to follow commands and be consistent with questions. Nod no to being in the hospital or in [place]. Family/friend interactions pending Advance Directives Living Will: Never completed Health Care Surrogate: Never completed Durable Power of Radar Repairer: Never completed Advance Directive Specifics Health Care Surrogate(s): No living will or healthcare surrogate designation found in medical records. Patricia Harrell acting as healthcare proxy. Unclear at this time if they are legally . . Documented care wishes: No living well documented. Objective Vital Signs Date Time Temp Pulse Resp B/P Pulse Ox O2 Delivery O2 Flow Rate FiO2 09/26/16 12:00 119 09/26/16 10:00 120 09/26/16 08:00 125 09/26/16 07:06 100 Nasal Cannula 3.00 09/26/16 06:00 121 09/26/16 04:00 117 09/26/16 04:00 98.9 117 18 110/74 96 09/26/16 02:00 120 09/26/16 01:30 99.3 117 18 114/80 97 09/26/16 00:00 100.2 143 17 112/78 100 09/26/16 00:00 143 09/25/16 22:40 102.2 135 22 114/68 96 09/25/16 22:00 139 09/25/16 21:04 100 Nasal Cannula 2.00 09/25/16 20:00 138 09/25/16 20:00 102.8 138 20 101/69 97 09/25/16 18:00 124 17 109/79 100 09/25/16 17:00 127 21 99/71 100 09/25/16 16:00 119 20 96/67 100 09/25/16 15:36 99.5 120 18 97/65 100 09/25/16 15:30 120 17 95/69 98 09/25/16 15:15 121 17 94/68 97 09/25/16 15:11 99.6 122 15 83/64 98 09/25/16 14:20 102.6 130 24 116/72 99 09/25/16 14:18 99 Nasal Cannula 2 09/25/16 13:45 124 15 121/76 97 Intake & Output 09/26/16 09/26/16 07:00 19:00 Intake Total 2399 ml Output Total 1500 ml Balance 899 ml IV Total 1499 ml Packed Cells 900 ml Output Urine Total 1050 ml Stool Total 450 ml # Bowel Movements 2 Physical Exam CONSTITUTIONAL/GENERAL: This is a thin patient in no acute distress, aphasic, limited communication. Nodding head yes/no to questions, but inconsistent. Looks lethargic and moaning. TUBES/LINES/DRAINS: PIV's, PEG tube. SKIN: No jaundice. Skin temperature appropriate. Not diaphoretic. HEAD: Atraumatic. Normocephalic. EYES: Pupils equal and round and reactive. ENT: Hearing grossly normal. Nose without bleeding or purulent drainage. Throat without visible erythema or exudates. Moderate amount of oral clear secretions. NECK: Trachea midline. Supple, nontender. CARDIOVASCULAR: Regular rate and rhythm without murmurs, gallops, or rubs. No JVD. Peripheral pulses symmetric. RESPIRATORY/CHEST: noted some tachypnea, some rhonchi. GASTROINTESTINAL: Abdomen soft, non-tender, nondistended. PEG tube in place, same cover with dressing. No guarding. Bowel sounds present. Rectal tube present, with black tarry stool. GENITOURINARY: Without palpable bladder distension. MUSCULOSKELETAL: Extremities without clubbing, cyanosis, or edema. Muscle wasting noted. NEUROLOGICAL: Awake. Not following commands consistently. Right-sided hemiparesis. PSYCHIATRIC: Appears restless. . Diagnostic Tests Laboratory Laboratory Tests Test 09/23/16 09/25/16 09/25/16 09/25/16 18:30 06:50 07:45 11:30 Stool C. difficile Toxin (PCR) NEGATIVE NEGATIVE (NEGATIVE) (NEGATIVE) Stl C. difficile Toxin PRESUMPTIVE PRESUMPTIVE Epiderm 027 NEGATIVE NEGATIVE (NEGATIVE) (NEGATIVE) Hemoglobin 11.2 GM/DL 10.2 GM/DL (13.0-17.0) (13.0-17.0) Hematocrit 34.5 % 31.4 % (39.0-51.0) (39.0-51.0) White Blood Count 17.1 TH/MM3 (4.0-11.0) Red Blood Count 3.72 MIL/MM3 (4.50-5.90) Mean Corpuscular Volume 84.4 FL (80.0-100.0) Mean Corpuscular Hemoglobin 27.5 PG (27.0-34.0) Mean Corpuscular Hemoglobin 32.5 % Concent (32.0-36.0) Red Cell Distribution Width 16.5 % (11.6-17.2) Platelet Count 668 TH/MM3 (150-450) Mean Platelet Volume 8.6 FL (7.0-11.0) Neutrophils (%) (Auto) 84.9 % (16.0-70.0) Lymphocytes (%) (Auto) 9.2 % (9.0-44.0) Monocytes (%) (Auto) 3.7 % (0.0-8.0) Eosinophils (%) (Auto) 0.2 % (0.0-4.0) Basophils (%) (Auto) 2.0 % (0.0-2.0) Neutrophils # (Auto) 14.6 TH/MM3 (1.8-7.7) Lymphocytes # (Auto) 1.6 TH/MM3 (1.0-4.8) Monocytes # (Auto) 0.6 TH/MM3 (0-0.9) Eosinophils # (Auto) 0.0 TH/MM3 (0-0.4) Basophils # (Auto) 0.3 TH/MM3 (0-0.2) CBC Comment AUTO DIFF Differential Comment AUTO DIFF CONFIRMED Prothrombin Time 11.3 SEC (9.8-11.6) Prothromb Time International 1.0 RATIO Ratio Activated Partial 33.1 SEC Thromboplast Time (24.3-30.1) Sodium Level 137 MEQ/L (136-145) Potassium Level 4.2 MEQ/L (3.5-5.1) Chloride Level 100 MEQ/L (98-107) Carbon Dioxide Level 26.4 MEQ/L (21.0-32.0) Anion Gap 11 MEQ/L (5-15) Blood Urea Nitrogen 14 MG/DL (7-18) Creatinine 0.70 MG/DL (0.60-1.30) Estimat Glomerular Filtration 148 ML/MIN Rate (>89) Random Glucose 146 MG/DL (74-106) Calcium Level 9.5 MG/DL (8.5-10.1) Hemoglobin A1c 6.6 % (4.3-6.0) Phosphorus Level 2.8 MG/DL (2.5-4.9) Test 09/25/16 09/25/16 09/25/16 09/25/16 13:15 13:25 15:39 21:40 Hemoglobin 9.6 GM/DL 8.6 GM/DL 6.9 GM/DL (13.0-17.0) (13.0-17.0) (13.0-17.0) Hematocrit 29.9 % 27.4 % 22.2 % (39.0-51.0) (39.0-51.0) (39.0-51.0) Lactic Acid Level 1.8 mmol/L (0.4-2.0) Blood Type A POSITIVE Antibody Screen NEGATIVE Blood Bank Comment Crossmatch Leukocyte-Reduced Red Blood Cells White Blood Count 17.2 TH/MM3 (4.0-11.0) Red Blood Count 3.24 MIL/MM3 (4.50-5.90) Mean Corpuscular Volume 84.6 FL (80.0-100.0) Mean Corpuscular Hemoglobin 26.5 PG (27.0-34.0) Mean Corpuscular Hemoglobin 31.3 % Concent (32.0-36.0) Red Cell Distribution Width 16.6 % (11.6-17.2) Platelet Count 509 TH/MM3 (150-450) Mean Platelet Volume 8.8 FL (7.0-11.0) Neutrophils (%) (Auto) 87.8 % (16.0-70.0) Lymphocytes (%) (Auto) 6.1 % (9.0-44.0) Monocytes (%) (Auto) 5.6 % (0.0-8.0) Eosinophils (%) (Auto) 0.1 % (0.0-4.0) Basophils (%) (Auto) 0.4 % (0.0-2.0) Neutrophils # (Auto) 15.1 TH/MM3 (1.8-7.7) Lymphocytes # (Auto) 1.0 TH/MM3 (1.0-4.8) Monocytes # (Auto) 1.0 TH/MM3 (0-0.9) Eosinophils # (Auto) 0.0 TH/MM3 (0-0.4) Basophils # (Auto) 0.1 TH/MM3 (0-0.2) CBC Comment DIFF FINAL Differential Comment Test 09/26/16 05:59 White Blood Count 15.9 TH/MM3 (4.0-11.0) Red Blood Count 3.84 MIL/MM3 (4.50-5.90) Hemoglobin 10.6 GM/DL (13.0-17.0) Hematocrit 32.4 % (39.0-51.0) Mean Corpuscular Volume 84.2 FL (80.0-100.0) Mean Corpuscular Hemoglobin 27.7 PG (27.0-34.0) Mean Corpuscular Hemoglobin 32.9 % Concent (32.0-36.0) Red Cell Distribution Width 14.8 % (11.6-17.2) Platelet Count 374 TH/MM3 (150-450) Mean Platelet Volume 8.3 FL (7.0-11.0) Neutrophils (%) (Auto) 83.6 % (16.0-70.0) Lymphocytes (%) (Auto) 10.0 % (9.0-44.0) Monocytes (%) (Auto) 6.0 % (0.0-8.0) Eosinophils (%) (Auto) 0.1 % (0.0-4.0) Basophils (%) (Auto) 0.3 % (0.0-2.0) Neutrophils # (Auto) 13.3 TH/MM3 (1.8-7.7) Lymphocytes # (Auto) 1.6 TH/MM3 (1.0-4.8) Monocytes # (Auto) 1.0 TH/MM3 (0-0.9) Eosinophils # (Auto) 0.0 TH/MM3 (0-0.4) Basophils # (Auto) 0.0 TH/MM3 (0-0.2) CBC Comment AUTO DIFF Differential Total Cells 100 Counted Neutrophils % (Manual) 77 % (16-70) Band Neutrophils % 7 % (0-6) Lymphocytes % 9 % (9-44) Monocytes % 6 % (0-8) Neutrophils # (Manual) 13.5 TH/MM3 (1.8-7.7) Myelocytes 1 % (0-0) Differential Comment FINAL DIFF MANUAL Platelet Estimate NORMAL (NORMAL) Platelet Morphology Comment NORMAL (NORMAL) Red Cell Morphology Comment NORMAL (NORMAL) Sodium Level 135 MEQ/L (136-145) Potassium Level 4.2 MEQ/L (3.5-5.1) Chloride Level 101 MEQ/L (98-107) Carbon Dioxide Level 26.0 MEQ/L (21.0-32.0) Anion Gap 8 MEQ/L (5-15) Blood Urea Nitrogen 8 MG/DL (7-18) Creatinine 0.63 MG/DL (0.60-1.30) Estimat Glomerular Filtration 168 ML/MIN Rate (>89) Random Glucose 86 MG/DL (74-106) Calcium Level 8.6 MG/DL (8.5-10.1) Phosphorus Level 3.2 MG/DL (2.5-4.9) Magnesium Level 1.7 MG/DL (1.5-2.5) Result Diagram: 09/26/16 0559 09/26/16 0559 Microbiology Microbiology Date/Time Procedure Status Source Growth 09/25/16 06:50 Stool Occult Blood (STAR) - Final Complete Stool Stool HEMOCCULT POSITIVE 09/25/16 11:30 Aerobic Blood Culture - Preliminary Resulted Blood Peripheral NO GROWTH IN 1 DAY 09/25/16 11:30 Anaerobic Blood Culture - Preliminary Resulted Blood Peripheral NO GROWTH IN 1 DAY Imaging Last Impressions Chest X-Ray 09/25/16 0000 Signed Impressions: Service Date/Time: Sunday, September 25, 2016 11:45 - CONCLUSION: Developing patchy air space disease right upper lobe. Conrad Stewart MD FACR Abdomen/Pelvis CT 09/17/16 0000 Signed Impressions: Service Date/Time: Saturday, September 17, 2016 23:35 - CONCLUSION: 1. Constipation. 2. No acute abnormality. Vishal Beckford Jr., MD Renal Ultrasound 08/28/16 0000 Signed Impressions: Service Date/Time: Sunday, August 28, 2016 20:03 - CONCLUSION: Mild increased echotexture of both kidneys. Baldev Vu MD Upper Extremity Ultrasound 08/19/16 0000 Signed Impressions: Service Date/Time: Friday, August 19, 2016 22:32 - CONCLUSION: Left cephalic vein occlusive thrombus noted in the antecubital fossa. Baldev Vu MD Lumbar Puncture Fluoroscopy 08/17/16 0000 Signed Impressions: Service Date/Time: Wednesday, August 17, 2016 12:26 - CONCLUSION: Uncomplicated fluoroscopically guided lumbar puncture. Vishal Beckford Jr., MD Brain MRI 08/17/16 0000 Signed Impressions: Service Date/Time: Wednesday, August 17, 2016 13:28 - CONCLUSION: Remote long-standing areas of abnormality in the brainstem and middle cerebellar peduncle consistent with remote infarcts or contusion. No acute intracranial abnormality. Chacho Bright MD Abdomen X-Ray 08/17/16 0000 Signed Impressions: Service Date/Time: Wednesday, August 17, 2016 13:02 - CONCLUSION: No evidence of obstruction. No MRI incompatible foreign body is identified. Chacho Bright MD Head CT 08/16/16 0000 Signed Impressions: Service Date/Time: Tuesday, August 16, 2016 09:55 - CONCLUSION: Chronic ischemic changes left frontal lobe possibly from evidence of previous ventriculostomy placement, unchanged. No acute intracranial abnormality. Gen Potter MD Modified Barium Swallow 08/15/16 0000 Signed Impressions: Service Date/Time: Monday, August 15, 2016 00:00 - CONCLUSION: See report above and speech pathology report Chacho Bright MD Procedures * 08/19/16 -PEG tube placement * 08/17/16- lumbar puncture . Assessment and Plan Disease Oriented Problem List: (1) Neurologic type Behcet's syndrome (2) Sepsis (3) Impaired mobility and activities of daily living Symptom Scale: (1) Debility 0-10 Scale: Unable to quantify Comment: Progressive secondary to neuro-Behcet's syndrome, CVA. Now bed bound. (2) Depression 0-10 Scale: Unable to quantify Comment: History of depression, on Celexa at home. Crying outburst. Pertinent Non-Medical Issues Psychosocial: Reported as . Unknown if he has any children. Spiritual: No spiritual affiliations. Legal: No living will or advanced directives found in medical records. Patricia Harrell presented as and has been acting as healthcare proxy. Ethical issues impacting care: No living will or advanced directives found in medical records. Patricia Harrell presented as and has been acting as healthcare proxy. . Important Contacts Patricia Harrell -reported as . [phone]. . Prognosis Mr. Mendoza is a 46-year-old male with a past medical history of neuro-Behcet' s syndrome diagnosed at [facility], left frontal CVA discovered in November 2015, diabetes mellitus type 2, mural thrombus, brain abscess in 2014, meningitis, hypertension and bedbound state. Patient presented to the ED on 08/13/16 via EMS were reports of decreased oral intake for the prior 2-3 days and skin tear to left upper extremity. He was admitted for sepsis. Patient is at high risk for further complications, continue decline and . His diagnosis of neuro- Behcet's syndrome was done at [facility]. Code Status: Full Code Plan * Pt on my visit does not have capacity to make medical decisions. * CODE STATUS: Unclear at this time. Several attempts to contact / significant other. Patient listed as FULL CODE in prior admissions. Goals of care will need to be aggressive until family could be reach to clarify goals. Full Code. * HEALTHCARE DECISION-MAKER: No living will or healthcare surrogate designation found in medical records. Patricia Harrell acting as healthcare proxy. Unclear at this time if they are legally . * GOALS OF CARE: Palliative care has been unable to discuss goals of care or code status with pt's significant other. Many attempts at contacting her including multiple telephone messages and letter. Today (09/26/2016) I have made another attempt at [phone] ( Patricia Sharri). I was able to leave a voicemail and left the palliative care number. As we are still trying to reach family, goals of care will need to be aggressive. Palliative care is unsure if family is actively trying to avoid us. * SYMPTOMS: == debility and just generalized discomfort. No new med rec. * Palliative care contact information has been provided to patient's via telephone voicemail. Several attempts at contacting family. Sending letter to patient's requesting to contact palliative care. We will contact pt's spouse again and follow. * Palliative care will continue to follow-up with this patient and family as needed for clarifications of goals of care and support during this difficult time. . Attestation To help prompt me to consider important information that might be impacting today's encounter and assessment, information from prior notes written by myself or my colleagues may have been "brought forward" into today's note. My signature on this note, however, is an attestation that I personally performed the exam, history, and/or decision-making noted today, and, unless otherwise indicated, the interactions with patient, family, and staff as well as the review of records all occurred today. I also attest that the listed assessment and stated plan reflect my best clinical judgment today based on the combination of historical information, prior notes, and today's exam/ interactions. When time spent is documented, it refers only to time spent today by the signer, or if indicated, combined time spent today by collaborating physician/nurse practitioner. Sekou Chen MD Sep 26, 2016 13:54
[2016-09-26 17:05] LABS: HEMATOCRIT 29.7 % (39.0-51.0); HEMOGLOBIN 9.6 GM/DL (13.0-17.0)
--- NOTE | 2016-09-26 17:06 | RADRPT ---
EXAM DATE/TIME: 09/26/2016 15:05 [facility] COMPARISON: No previous studies available for comparison. INDICATIONS : Blood in stool. IV CONTRAST: 70 cc Omnipaque 350 (iohexol) IV ORAL CONTRAST: Partial prescribed oral contrast ingested. RADIATION DOSE: 12.02 CTDIvol (mGy) MEDICAL HISTORY : Stroke. Cardiovascular disease SURGICAL HISTORY : None. ENCOUNTER: Initial ACUITY: 1 day PAIN SCALE: Non-responsive LOCATION: Bilateral abdomen. TECHNIQUE: Volumetric scanning of the abdomen and pelvis was performed. Using automated exposure control and ad justment of the mA and/or kV according to patient size, radiation dose was kept as low as reasonably achievable to obtain optimal diagnostic quality images. FINDINGS: LOWER LUNGS: There is mild atelectasis in the left lung base. LIVER: Homogeneous density without lesion. There is no dilation of the biliary tree. No calcified gallston es. SPLEEN: Normal size without lesion. PANCREAS: Within normal limits. KIDNEYS: Small cyst involving the upper pole anterior cortex of the left kidney. No hydronephrosis. ADRENAL GLANDS: Within normal limits. VASCULAR: There is no aortic aneurysm. BOWEL/MESENTERY: Gastrostomy tube is present. There is mild fluid and gaseous distention of the colon of nonspecific ABDOMINAL WALL: Gastrostomy RETROPERITONEUM: There is no lymphadenopathy. BLADDER: Decompressed with Kowalski catheter. REPRODUCTIVE: Within normal limits. INGUINAL: There is no lymphadenopathy or hernia. MUSCULOSKELETAL: Within normal limits for patient age. CONCLUSION: No definite acute CT findings in the abdomen or pelvis. Josafat Meyer MD on September 26, 2016 at 16:57 Board Certified Radiologist. This report was verified electronically.
--- NOTE | 2016-09-26 23:00 | HHI.IDPN ---
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 Vital Signs Date Time Temp Pulse Resp B/P Pulse Ox O2 Delivery O2 Flow Rate FiO2 09/26/16 21:45 100 21 09/26/16 20:00 118 09/26/16 20:00 99.0 118 13 95/68 100 09/26/16 18:00 102 09/26/16 16:00 99.5 114 17 105/66 99 09/26/16 16:00 113 09/26/16 14:00 122 09/26/16 12:00 119 09/26/16 12:00 99.5 122 17 115/72 100 09/26/16 10:00 120 09/26/16 08:00 125 09/26/16 08:00 99.3 119 17 99/65 100 09/26/16 07:06 100 Nasal Cannula 3.00 09/26/16 06:00 121 09/26/16 04:00 117 09/26/16 04:00 98.9 117 18 110/74 96 09/26/16 02:00 120 09/26/16 01:30 99.3 117 18 114/80 97 09/26/16 00:00 100.2 143 17 112/78 100 09/26/16 00:00 143 09/25/16 09/25/16 09/26/16 15:00 23:00 07:00 Intake Total 1199 ml 1700 ml Output Total 2 ml 550 ml 1000 ml Balance -2 ml 649 ml 700 ml IV Total 1049 ml 800 ml Packed Cells 900 ml Other 150 ml Output Urine Total 500 ml 550 ml Stool Total 2 ml 450 ml Estimated Blood Loss 50 ml # Bowel Movements 2 . Laboratory Tests Test 09/25/16 09/25/16 09/25/16 09/25/16 07:45 11:30 13:15 15:39 Hemoglobin 11.2 GM/DL 10.2 GM/DL 9.6 GM/DL 8.6 GM/DL Hematocrit 34.5 % 31.4 % 29.9 % 27.4 % White Blood Count 17.1 TH/MM3 17.2 TH/MM3 Red Blood Count 3.72 MIL/MM3 3.24 MIL/MM3 Mean Corpuscular Volume 84.4 FL 84.6 FL Mean Corpuscular Hemoglobin 27.5 PG 26.5 PG Mean Corpuscular Hemoglobin 32.5 % 31.3 % Concent Red Cell Distribution Width 16.5 % 16.6 % Platelet Count 668 TH/MM3 509 TH/MM3 Mean Platelet Volume 8.6 FL 8.8 FL Neutrophils (%) (Auto) 84.9 % 87.8 % Lymphocytes (%) (Auto) 9.2 % 6.1 % Monocytes (%) (Auto) 3.7 % 5.6 % Eosinophils (%) (Auto) 0.2 % 0.1 % Basophils (%) (Auto) 2.0 % 0.4 % Neutrophils # (Auto) 14.6 TH/MM3 15.1 TH/MM3 Lymphocytes # (Auto) 1.6 TH/MM3 1.0 TH/MM3 Monocytes # (Auto) 0.6 TH/MM3 1.0 TH/MM3 Eosinophils # (Auto) 0.0 TH/MM3 0.0 TH/MM3 Basophils # (Auto) 0.3 TH/MM3 0.1 TH/MM3 CBC Comment AUTO DIFF DIFF FINAL Differential Comment AUTO DIFF CONFIRMED Test 09/25/16 09/26/16 09/26/16 21:40 05:59 16:58 Hemoglobin 6.9 GM/DL 10.6 GM/DL 9.6 GM/DL Hematocrit 22.2 % 32.4 % 29.7 % White Blood Count 15.9 TH/MM3 Red Blood Count 3.84 MIL/MM3 Mean Corpuscular Volume 84.2 FL Mean Corpuscular Hemoglobin 27.7 PG Mean Corpuscular Hemoglobin 32.9 % Concent Red Cell Distribution Width 14.8 % Platelet Count 374 TH/MM3 Mean Platelet Volume 8.3 FL Neutrophils (%) (Auto) 83.6 % Lymphocytes (%) (Auto) 10.0 % Monocytes (%) (Auto) 6.0 % Eosinophils (%) (Auto) 0.1 % Basophils (%) (Auto) 0.3 % Neutrophils # (Auto) 13.3 TH/MM3 Lymphocytes # (Auto) 1.6 TH/MM3 Monocytes # (Auto) 1.0 TH/MM3 Eosinophils # (Auto) 0.0 TH/MM3 Basophils # (Auto) 0.0 TH/MM3 CBC Comment AUTO DIFF Differential Total Cells 100 Counted Neutrophils % (Manual) 77 % Band Neutrophils % 7 % Lymphocytes % 9 % Monocytes % 6 % Neutrophils # (Manual) 13.5 TH/MM3 Myelocytes 1 % Differential Comment FINAL DIFF MANUAL Platelet Estimate NORMAL Platelet Morphology Comment NORMAL Red Cell Morphology Comment NORMAL Laboratory Tests Test 09/25/16 09/25/16 09/26/16 11:30 13:15 05:59 Sodium Level 137 MEQ/L 135 MEQ/L Potassium Level 4.2 MEQ/L 4.2 MEQ/L Chloride Level 100 MEQ/L 101 MEQ/L Carbon Dioxide Level 26.4 MEQ/L 26.0 MEQ/L Anion Gap 11 MEQ/L 8 MEQ/L Blood Urea Nitrogen 14 MG/DL 8 MG/DL Creatinine 0.70 MG/DL 0.63 MG/DL Estimat Glomerular Filtration 148 ML/MIN 168 ML/MIN Rate Random Glucose 146 MG/DL 86 MG/DL Calcium Level 9.5 MG/DL 8.6 MG/DL Hemoglobin A1c 6.6 % Phosphorus Level 2.8 MG/DL 3.2 MG/DL Lactic Acid Level 1.8 mmol/L Magnesium Level 1.7 MG/DL Microbiology Date/Time Procedure Status Source Growth 09/25/16 06:50 Stool Occult Blood (STAR) - Final Complete Stool Stool HEMOCCULT POSITIVE 09/25/16 11:30 Aerobic Blood Culture - Preliminary Resulted Blood Peripheral NO GROWTH IN 1 DAY 09/25/16 11:30 Anaerobic Blood Culture - Preliminary Resulted Blood Peripheral NO GROWTH IN 1 DAY Imaging Last Impressions Abdomen/Pelvis CT 09/26/16 0000 Signed Impressions: Service Date/Time: Monday, September 26, 2016 15:05 - CONCLUSION: No definite acute CT findings in the abdomen or pelvis. Josafat Meyer MD Chest X-Ray 09/25/16 0000 Signed Impressions: Service Date/Time: Sunday, September 25, 2016 11:45 - CONCLUSION: Developing patchy air space disease right upper lobe. Conrad Stewart MD FACR Renal Ultrasound 08/28/16 0000 Signed Impressions: Service Date/Time: Sunday, August 28, 2016 20:03 - CONCLUSION: Mild increased echotexture of both kidneys. Baldev Vu MD Upper Extremity Ultrasound 08/19/16 0000 Signed Impressions: Service Date/Time: Friday, August 19, 2016 22:32 - CONCLUSION: Left cephalic vein occlusive thrombus noted in the antecubital fossa. Baldev Vu MD Lumbar Puncture Fluoroscopy 08/17/16 0000 Signed Impressions: Service Date/Time: Wednesday, August 17, 2016 12:26 - CONCLUSION: Uncomplicated fluoroscopically guided lumbar puncture. Vishal Beckford Jr., MD Brain MRI 08/17/16 0000 Signed Impressions: Service Date/Time: Wednesday, August 17, 2016 13:28 - CONCLUSION: Remote long-standing areas of abnormality in the brainstem and middle cerebellar peduncle consistent with remote infarcts or contusion. No acute intracranial abnormality. Chacho Bright MD Abdomen X-Ray 08/17/16 0000 Signed Impressions: Service Date/Time: Wednesday, August 17, 2016 13:02 - CONCLUSION: No evidence of obstruction. No MRI incompatible foreign body is identified. Chacho Bright MD Head CT 08/16/16 0000 Signed Impressions: Service Date/Time: Tuesday, August 16, 2016 09:55 - CONCLUSION: Chronic ischemic changes left frontal lobe possibly from evidence of previous ventriculostomy placement, unchanged. No acute intracranial abnormality. Gen Potter MD Modified Barium Swallow 08/15/16 0000 Signed Impressions: Service Date/Time: Monday, August 15, 2016 00:00 - CONCLUSION: See report above and speech pathology report Chacho Bright MD Physical Exam GENERAL: Poorly nourished, chronically ill appearing patient, in no apparent distress. SKIN: Old scars on arms. HEAD: Atraumatic. Normocephalic. No temporal or scalp tenderness. EYES: Pupils equal round and reactive. Extraocular motions intact. No scleral icterus. No injection or drainage. ENT: Nose without bleeding, purulent drainage or septal hematoma. moist mucosae NECK: Trachea midline. Supple, nontender, no meningeal signs. CARDIOVASCULAR: HS audible. No murmur. RESPIRATORY:. Breath sounds equal bilaterally. clear to auscultation GASTROINTESTINAL: Abdomen soft, non-tender, minimally distended. recal bag in place with stool mixed with dark blood MUSCULOSKELETAL: Extremities without clubbing, cyanosis, or edema. Wasting and contractures NEUROLOGICAL: Awake and alert. Aphasic. Communicates with yes/no LE weakness but able to flex both limbs minimally. Contractures noted. Psych: unabe to assess IV line sites with no e.o infection. 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 New PNA RUL Plan: Follow blood and wound cultures cont júnior bravo for now Isolate for VRE colonisation in the wound fu blood clx rechk UA, C+S sputum clx dw RN dw Margie Owens MD Sep 26, 2016 22:59
[2016-09-26 23:03] LABS: HEMATOCRIT 27.9 % (39.0-51.0); HEMOGLOBIN 9.4 GM/DL (13.0-17.0)
[2016-09-27] VITALS (12 sets, daily range): BP systolic 104–138; BP diastolic 60–79; PULSE 94–114; RESP 12–19; TEMP 98.2–99; O2SAT 93–100
[2016-09-27] MEDS: SODIUM CHLOR 0.9% 1000 ML INJ 1,000 ML IV SCH ×3 (00:09→23:10)
[2016-09-27] MEDS: PIPERACIL-TAZO 4.5 GM PREMIX 100 ML IV SCH ×4 (01:42→20:37)
[2016-09-27 04:58] LABS: AUTOMATED NEUTROPHIL # 8.6 TH/MM3 (1.8-7.7); BASOPHIL % 0.3 % (0.0-2.0); EOSINOPHIL # 0.1 TH/MM3 (0-0.4); EOSINOPHIL % 1.1 % (0.0-4.0); HEMATOCRIT 28.5 % (39.0-51.0); HEMOGLOBIN 9.7 GM/DL (13.0-17.0); LYMPH % 13.5 % (9.0-44.0); LYMPHOCYTE # 1.5 TH/MM3 (1.0-4.8); MEAN CELL VOLUME 83.4 FL (80.0-100.0); MEAN CORPUSCULAR HEMOGLOBIN 28.3 PG (27.0-34.0); MEAN PLATELET VOLUME 7.7 FL (7.0-11.0); MONO % 7.7 % (0.0-8.0); MONOCYTE # 0.9 TH/MM3 (0-0.9); NEUT % 77.4 % (16.0-70.0); PLATELET COUNT 410 TH/MM3 (150-450); RED BLOOD COUNT 3.42 MIL/MM3 (4.50-5.90); RED CELL DISTRIBUTION WIDTH 15.5 % (11.6-17.2); WHITE BLOOD COUNT 11.1 TH/MM3 (4.0-11.0)
[2016-09-27] MEDS: INSULIN NovoLIN REGULAR SUPPLEMENTAL SCALE SQ SCH ×4 (05:00→23:00)
[2016-09-27 05:27] LABS: BICARBONATE 24.4 MEQ/L (21.0-32.0); CALCIUM 9.1 MG/DL (8.5-10.1); CREATININE 0.65 MG/DL (0.60-1.30); MAGNESIUM 1.9 MG/DL (1.5-2.5); PHOSPHORUS 3.6 MG/DL (2.5-4.9)
[2016-09-27] MEDS: VANCOMYCIN INJ 1,200 MG in SODIUM CHLOR 0.9% 250 ML INJ 250 ML IV SCH (06:17)
--- NOTE | 2016-09-27 07:02 | HHI.CCPN ---
Subjective Remarks/Hospital Course 46-year-old rather unfortunate male with known history of brain abscess, frontal CVA, neuro Behcet's syndrome who was originally admitted to the hospital because of failure to thrive, decreased oral intake. Patient initial workup indicated sepsis with urinary tract infection. Patient was treated for that and was doing well. GI was consulted in which place a PEG tube for feeding for continued management and care. Patient does have sacral decubitus which is being managed by wound care nursing staff. Patient was in [facility] for long-term care because of unable to place the patient in a facility. Patient was doing well until today when nursing staff notified attending physician that patient had a rather significant lower GI bleed with copious bright red blood, maroon blood clots, melena. At that time patient was rather tachycardic up to 148, blood pressure was taken after that and found to be 94/ 69. Temperature 101.1. Because of those reasons patient was transferred to ICU for stabilization. Patient was given 1 L fluid bolus. Blood pressure was monitored closely. Workup was entertained for sepsis secondary to the fever. Workup did indicate significant leukocytosis, chest x-ray with right upper lung consolidation. GI was called by attending team and transferred to [facility] is being arranged for emergent endoscopy due to the acute GI bleed. Patient has been started on empiric antibiotics include vancomycin and Zosyn. Blood cultures have been taken. Awaiting sputum culture. This patient was being transferred to [facility] ICU it was indicated by nursing resident that a critical care consult should be placed. Hence critical care was consulted to assume medical management in the ICU. 09/26 Patient was transferred from yesterday for GI bleed s/p EGD yesterday which showed no signs of active bleeding. For Colonoscopy today. s/p transfusion 3u PRBC overnight for Hgb 6.9 repeat Hgb 10.6 this morning. Afebrile. 09/27 No acute events overnight. Afebrile. WBC trending down, H/J stable, for colonoscopy today. CT abdomen for yesterday showed no acute findings. Objective Vital Signs Date Time Temp Pulse Resp B/P Pulse Ox O2 Delivery O2 Flow Rate FiO2 09/27/16 06:00 108 09/27/16 04:00 98.8 19 130/77 100 09/26/16 21:45 21 09/26/16 07:06 Nasal Cannula 3.00 Intake and Output 09/26/16 09/26/16 09/27/16 08:00 16:00 00:00 Intake Total 1700 ml 1305 ml 760 ml Output Total 1000 ml 2400 ml 1900 ml Balance 700 ml -1095 ml -1140 ml Result Diagram: 09/27/16 0449 09/27/16 0449 Other Results Laboratory Tests Test 09/26/16 09/26/16 09/27/16 16:58 22:54 04:49 Hemoglobin 9.6 GM/DL 9.4 GM/DL 9.7 GM/DL Hematocrit 29.7 % 27.9 % 28.5 % White Blood Count 11.1 TH/MM3 Red Blood Count 3.42 MIL/MM3 Mean Corpuscular Volume 83.4 FL Mean Corpuscular Hemoglobin 28.3 PG Mean Corpuscular Hemoglobin 34.0 % Concent Red Cell Distribution Width 15.5 % Platelet Count 410 TH/MM3 Mean Platelet Volume 7.7 FL Neutrophils (%) (Auto) 77.4 % Lymphocytes (%) (Auto) 13.5 % Monocytes (%) (Auto) 7.7 % Eosinophils (%) (Auto) 1.1 % Basophils (%) (Auto) 0.3 % Neutrophils # (Auto) 8.6 TH/MM3 Lymphocytes # (Auto) 1.5 TH/MM3 Monocytes # (Auto) 0.9 TH/MM3 Eosinophils # (Auto) 0.1 TH/MM3 Basophils # (Auto) 0.0 TH/MM3 CBC Comment DIFF FINAL Differential Comment Sodium Level 141 MEQ/L Potassium Level 3.3 MEQ/L Chloride Level 104 MEQ/L Carbon Dioxide Level 24.4 MEQ/L Anion Gap 13 MEQ/L Blood Urea Nitrogen 8 MG/DL Creatinine 0.65 MG/DL Estimat Glomerular Filtration 162 ML/MIN Rate Random Glucose 68 MG/DL Calcium Level 9.1 MG/DL Phosphorus Level 3.6 MG/DL Magnesium Level 1.9 MG/DL Vancomycin Level Trough 14.9 MCG/ML Imaging Last Impressions Abdomen/Pelvis CT 09/26/16 0000 Signed Impressions: Service Date/Time: Monday, September 26, 2016 15:05 - CONCLUSION: No definite acute CT findings in the abdomen or pelvis. Josafat Meyer MD Chest X-Ray 09/25/16 0000 Signed Impressions: Service Date/Time: Sunday, September 25, 2016 11:45 - CONCLUSION: Developing patchy air space disease right upper lobe. Conrad Stewart MD FACR Renal Ultrasound 08/28/16 Signed Impressions: Service Date/Time: Sunday, August 28, 2016 20:03 - CONCLUSION: Mild increased echotexture of both kidneys. Baldev Vu MD Upper Extremity Ultrasound 08/19/16 0000 Signed Impressions: Service Date/Time: Friday, August 19, 2016 22:32 - CONCLUSION: Left cephalic vein occlusive thrombus noted in the antecubital fossa. Baldev Vu MD Lumbar Puncture Fluoroscopy 08/17/16 0000 Signed Impressions: Service Date/Time: Wednesday, August 17, 2016 12:26 - CONCLUSION: Uncomplicated fluoroscopically guided lumbar puncture. Vishal Beckford Jr., MD Brain MRI 08/17/16 Signed Impressions: Service Date/Time: Wednesday, August 17, 2016 13:28 - CONCLUSION: Remote long-standing areas of abnormality in the brainstem and middle cerebellar peduncle consistent with remote infarcts or contusion. No acute intracranial abnormality. Chacho Bright MD Abdomen X-Ray 08/17/16 Signed Impressions: Service Date/Time: Wednesday, August 17, 2016 13:02 - CONCLUSION: No evidence of obstruction. No MRI incompatible foreign body is identified. Chacho Bright MD Head CT 08/16/16 0000 Signed Impressions: Service Date/Time: Tuesday, August 16, 2016 09:55 - CONCLUSION: Chronic ischemic changes left frontal lobe possibly from evidence of previous ventriculostomy placement, unchanged. No acute intracranial abnormality. Gen Potter MD Modified Barium Swallow 08/15/16 0000 Signed Impressions: Service Date/Time: Monday, August 15, 2016 00:00 - CONCLUSION: See report above and speech pathology report Chacho Bright MD Objective Remarks GENERAL: Patient i slying in bed in NAD SKIN: Warm and dry. HEAD: Normocephalic. EYES: No scleral icterus. No injection or drainage. NECK: Supple, trachea midline. No JVD or lymphadenopathy. CARDIOVASCULAR: Tachycardic without murmurs, gallops, or rubs. RESPIRATORY: Breath sounds equal bilaterally. No accessory muscle use. GASTROINTESTINAL: Abdomen soft, non-tender, nondistended. MUSCULOSKELETAL: No cyanosis, or edema. BACK: Nontender without obvious deformity. No CVA tenderness. A/P Problem List: (1) Severe sepsis ICD Code: A41.9 Status: Acute (2) GI bleed ICD Code: K92.2 Status: Acute (3) Leucocytosis ICD Code: D72.829 Status: Acute (4) Fever ICD Code: R50.9 Status: Acute (5) Pneumonia involving right lung ICD Code: J18.9 Status: Acute (6) 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 Assessment and Plan NEUROLOGY 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 Monitor neuro status and avoid sedatives Continue Prozac PULMONOLOGY Right lung pneumonia Continue O2 maintain O2 sats > 92% Bronchodilators CARDIOLOGY Low blood pressure, likely secondary to GI bleed versus shock Sinus tachycardia On Lopressor 12.5mg BID for rate control-monitor HR and BP keep MAP>65mmHg Continue with NS@84ml/hr. Lactic acid 1.8 GASTROENTEROLOGY GI bleed Continue with Protonix infusion. -s/p EGD 09/25 no signs of active bleeding for colonoscopy today. -S/p transfusion 3units PRBC overnight on 09/26 monitor H/H. -09/26 CT abdomne/pelvis showed no acute findings RENAL Monitor renal function, I/O's, electrolyte replacement protocol. -Will need K replacement today INFECTION DISEASE Sepsis Leukocytosis, Right upper lung pneumonia Sacral decubitus Continue with abx per ID (vancomycin and Zosyn) Follow up on cultures CT abdomen/pelvis 09/26: No acute findings Pertinent cultures 09/25 C-diff PCR negative 09/10/16 Wound culture from sacral decubitus: Pseudo-fluoresceins/[place], enterococcus faecalis, enterococcus faecium VRE 08/26/16 urine culture with D[place]ney parapsilosis ENDOCRINOLOGY SSI for glycemic control HEMATOLOGY Monitor CBC , Keep Hgb >8.0 PROPHYLAXIS Protonix for GI protection SCD for DVT prophylaxis, chemical AC prophylaxis held for probable GI bleed and anemia requiring blood transfusion -08/19 Doppler US UE: Left cephalic vein occlusive thrombus noted in the antecubital fossa. Not a candidate for AC due to GI bleed and anemia Will repeat US UE. LINES Peripheral IVs Level 3 Angela Carver MD Sep 27, 2016 07:02
[2016-09-27] MEDS: COLLAGENASE OINT 30 GM TUBE TOP SCH ×2 (09:14→18:29)
[2016-09-27] MEDS: METOPROLOL TARTRATE 25 MG TAB PO SCH ×2 (09:15→20:37)
[2016-09-27] MEDS: FLUoxetine HCL 10 MG CAP PO SCH (09:15)
--- NOTE | 2016-09-27 10:33 | HHI.HCPN ---
Reason for visit a. To assist with evaluation and management of symptoms including: debility , depression b. To assist medical decision maker(s) with: better understanding of current medical conditions; weighing benefits/burdens of medical treatment options; making medical treatment decisions. . Subjective/Interval History Mr. Mendoza is more alert and interactive on my visit. He is unable to verbalize, mouth words, but trouble speaking. He can nod and shake head for yes or no. When asked if he was in [facility] , He shook his head no. When asked if he was in [place], he nod for yes. When asked the color of the grass is usually green, he noded yes. When asked if color of the homa on a clear erick day is pink, he shook is head for no When asked if Patricia Lebron is his he nodded yes. When asked should he loose capacity, could she make medical decisions for him, he got tearful and started to cry, but nodded yes. Nurse Le was present to witness conversation. He also gave approval for Mindyjose to sign consents for medical decisions for him. I updated pt, who is very emotional. Updated his clinical situation. He nodded yes to Full Code, and blood transfusion. He remains undecided about trach. Goals is aggressive. Pt scheduled for colonoscopy today. Pt denies pain, but just tearful today. Family/friend interactions Have tried to reach out to Lucille, I have left voicemails. No family at bedside. Apparently the director social welfare has been able to reach Patricia. Advance Directives Living Will: Never completed Health Care Surrogate: Never completed Durable Power of Corn Chip Maker: Never completed Advance Directive Specifics Health Care Surrogate(s): No living will or healthcare surrogate designation found in medical records. Patricia Harrell acting as healthcare proxy. Unclear at this time if they are legally . . Documented care wishes: No living well documented. Objective Vital Signs Date Time Temp Pulse Resp B/P Pulse Ox O2 Delivery O2 Flow Rate FiO2 09/27/16 06:00 108 09/27/16 04:00 98.8 107 19 130/77 100 09/27/16 04:00 107 09/27/16 02:00 100 09/27/16 00:00 98.9 107 14 115/65 100 09/27/16 00:00 107 09/26/16 22:00 101 09/26/16 21:45 100 21 09/26/16 20:00 118 09/26/16 20:00 99.0 118 13 95/68 100 09/26/16 18:00 102 09/26/16 16:00 99.5 114 17 105/66 99 09/26/16 16:00 113 09/26/16 14:00 122 09/26/16 12:00 119 09/26/16 12:00 99.5 122 17 115/72 100 Intake & Output 09/27/16 09/27/16 07:00 19:00 Intake Total 1380 ml Output Total 4250 ml Balance -2870 ml Intake Oral 0 ml IV Total 1320 ml Other 60 ml Output Urine Total 2500 ml Stool Total 1750 ml Physical Exam CONSTITUTIONAL/GENERAL: This is a thin patient in no acute distress, aphasic. Pt follow commands, and nod and shake head appropriately for me today. Tearful. TUBES/LINES/DRAINS: PIV's, PEG tube. SKIN: No jaundice. Skin temperature appropriate. Not diaphoretic. HEAD: Atraumatic. Normocephalic. EYES: Pupils equal and round and reactive. ENT: Hearing grossly normal. Nose without bleeding or purulent drainage. Throat without visible erythema or exudates. Moderate amount of oral clear secretions. NECK: Trachea midline. Supple, nontender. CARDIOVASCULAR: Regular rate and rhythm without murmurs, gallops, or rubs. No JVD. Peripheral pulses symmetric. RESPIRATORY/CHEST: noted some tachypnea, some rhonchi. GASTROINTESTINAL: Abdomen soft, non-tender, nondistended. PEG tube in place, same cover with dressing. No guarding. Bowel sounds present. GENITOURINARY: Without palpable bladder distension. MUSCULOSKELETAL: Extremities without clubbing, cyanosis, or edema. Muscle wasting noted. NEUROLOGICAL: Awake. Following commands, interactive, and nod yes and no appropriately. Right-sided hemiparesis. PSYCHIATRIC: Appears restless. . Diagnostic Tests Laboratory Laboratory Tests Test 09/25/16 09/25/16 09/25/16 09/25/16 06:50 07:45 11:30 13:15 Stool C. difficile Toxin (PCR) NEGATIVE (NEGATIVE) Stl C. difficile Toxin PRESUMPTIVE Epiderm 027 NEGATIVE (NEGATIVE) Hemoglobin 11.2 GM/DL 10.2 GM/DL 9.6 GM/DL (13.0-17.0) (13.0-17.0) (13.0-17.0) Hematocrit 34.5 % 31.4 % 29.9 % (39.0-51.0) (39.0-51.0) (39.0-51.0) White Blood Count 17.1 TH/MM3 (4.0-11.0) Red Blood Count 3.72 MIL/MM3 (4.50-5.90) Mean Corpuscular Volume 84.4 FL (80.0-100.0) Mean Corpuscular Hemoglobin 27.5 PG (27.0-34.0) Mean Corpuscular Hemoglobin 32.5 % Concent (32.0-36.0) Red Cell Distribution Width 16.5 % (11.6-17.2) Platelet Count 668 TH/MM3 (150-450) Mean Platelet Volume 8.6 FL (7.0-11.0) Neutrophils (%) (Auto) 84.9 % (16.0-70.0) Lymphocytes (%) (Auto) 9.2 % (9.0-44.0) Monocytes (%) (Auto) 3.7 % (0.0-8.0) Eosinophils (%) (Auto) 0.2 % (0.0-4.0) Basophils (%) (Auto) 2.0 % (0.0-2.0) Neutrophils # (Auto) 14.6 TH/MM3 (1.8-7.7) Lymphocytes # (Auto) 1.6 TH/MM3 (1.0-4.8) Monocytes # (Auto) 0.6 TH/MM3 (0-0.9) Eosinophils # (Auto) 0.0 TH/MM3 (0-0.4) Basophils # (Auto) 0.3 TH/MM3 (0-0.2) CBC Comment AUTO DIFF Differential Comment AUTO DIFF CONFIRMED Prothrombin Time 11.3 SEC (9.8-11.6) Prothromb Time International 1.0 RATIO Ratio Activated Partial 33.1 SEC Thromboplast Time (24.3-30.1) Sodium Level 137 MEQ/L (136-145) Potassium Level 4.2 MEQ/L (3.5-5.1) Chloride Level 100 MEQ/L (98-107) Carbon Dioxide Level 26.4 MEQ/L (21.0-32.0) Anion Gap 11 MEQ/L (5-15) Blood Urea Nitrogen 14 MG/DL (7-18) Creatinine 0.70 MG/DL (0.60-1.30) Estimat Glomerular Filtration 148 ML/MIN Rate (>89) Random Glucose 146 MG/DL (74-106) Calcium Level 9.5 MG/DL (8.5-10.1) Hemoglobin A1c 6.6 % (4.3-6.0) Phosphorus Level 2.8 MG/DL (2.5-4.9) Lactic Acid Level 1.8 mmol/L (0.4-2.0) Blood Type A POSITIVE Antibody Screen NEGATIVE Blood Bank Comment Test 09/25/16 09/25/16 09/25/16 09/26/16 13:25 15:39 21:40 05:59 Crossmatch Leukocyte-Reduced Red Blood Cells Blood Bank Comment White Blood Count 17.2 TH/MM3 15.9 TH/MM3 (4.0-11.0) (4.0-11.0) Red Blood Count 3.24 MIL/MM3 3.84 MIL/MM3 (4.50-5.90) (4.50-5.90) Hemoglobin 8.6 GM/DL 6.9 GM/DL 10.6 GM/DL (13.0-17.0) (13.0-17.0) (13.0-17.0) Hematocrit 27.4 % 22.2 % 32.4 % (39.0-51.0) (39.0-51.0) (39.0-51.0) Mean Corpuscular Volume 84.6 FL 84.2 FL (80.0-100.0) (80.0-100.0) Mean Corpuscular Hemoglobin 26.5 PG 27.7 PG (27.0-34.0) (27.0-34.0) Mean Corpuscular Hemoglobin 31.3 % 32.9 % Concent (32.0-36.0) (32.0-36.0) Red Cell Distribution Width 16.6 % 14.8 % (11.6-17.2) (11.6-17.2) Platelet Count 509 TH/MM3 374 TH/MM3 (150-450) (150-450) Mean Platelet Volume 8.8 FL 8.3 FL (7.0-11.0) (7.0-11.0) Neutrophils (%) (Auto) 87.8 % 83.6 % (16.0-70.0) (16.0-70.0) Lymphocytes (%) (Auto) 6.1 % 10.0 % (9.0-44.0) (9.0-44.0) Monocytes (%) (Auto) 5.6 % (0.0-8.0) 6.0 % (0.0-8.0) Eosinophils (%) (Auto) 0.1 % (0.0-4.0) 0.1 % (0.0-4.0) Basophils (%) (Auto) 0.4 % (0.0-2.0) 0.3 % (0.0-2.0) Neutrophils # (Auto) 15.1 TH/MM3 13.3 TH/MM3 (1.8-7.7) (1.8-7.7) Lymphocytes # (Auto) 1.0 TH/MM3 1.6 TH/MM3 (1.0-4.8) (1.0-4.8) Monocytes # (Auto) 1.0 TH/MM3 1.0 TH/MM3 (0-0.9) (0-0.9) Eosinophils # (Auto) 0.0 TH/MM3 0.0 TH/MM3 (0-0.4) (0-0.4) Basophils # (Auto) 0.1 TH/MM3 0.0 TH/MM3 (0-0.2) (0-0.2) CBC Comment DIFF FINAL AUTO DIFF Differential Comment FINAL DIFF MANUAL Differential Total Cells 100 Counted Neutrophils % (Manual) 77 % (16-70) Band Neutrophils % 7 % (0-6) Lymphocytes % 9 % (9-44) Monocytes % 6 % (0-8) Neutrophils # (Manual) 13.5 TH/MM3 (1.8-7.7) Myelocytes 1 % (0-0) Platelet Estimate NORMAL (NORMAL) Platelet Morphology Comment NORMAL (NORMAL) Red Cell Morphology Comment NORMAL (NORMAL) Sodium Level 135 MEQ/L (136-145) Potassium Level 4.2 MEQ/L (3.5-5.1) Chloride Level 101 MEQ/L (98-107) Carbon Dioxide Level 26.0 MEQ/L (21.0-32.0) Anion Gap 8 MEQ/L (5-15) Blood Urea Nitrogen 8 MG/DL (7-18) Creatinine 0.63 MG/DL (0.60-1.30) Estimat Glomerular Filtration 168 ML/MIN Rate (>89) Random Glucose 86 MG/DL (74-106) Calcium Level 8.6 MG/DL (8.5-10.1) Phosphorus Level 3.2 MG/DL (2.5-4.9) Magnesium Level 1.7 MG/DL (1.5-2.5) Test 09/26/16 09/26/16 09/27/16 16:58 22:54 04:49 Hemoglobin 9.6 GM/DL 9.4 GM/DL 9.7 GM/DL (13.0-17.0) (13.0-17.0) (13.0-17.0) Hematocrit 29.7 % 27.9 % 28.5 % (39.0-51.0) (39.0-51.0) (39.0-51.0) White Blood Count 11.1 TH/MM3 (4.0-11.0) Red Blood Count 3.42 MIL/MM3 (4.50-5.90) Mean Corpuscular Volume 83.4 FL (80.0-100.0) Mean Corpuscular Hemoglobin 28.3 PG (27.0-34.0) Mean Corpuscular Hemoglobin 34.0 % Concent (32.0-36.0) Red Cell Distribution Width 15.5 % (11.6-17.2) Platelet Count 410 TH/MM3 (150-450) Mean Platelet Volume 7.7 FL (7.0-11.0) Neutrophils (%) (Auto) 77.4 % (16.0-70.0) Lymphocytes (%) (Auto) 13.5 % (9.0-44.0) Monocytes (%) (Auto) 7.7 % (0.0-8.0) Eosinophils (%) (Auto) 1.1 % (0.0-4.0) Basophils (%) (Auto) 0.3 % (0.0-2.0) Neutrophils # (Auto) 8.6 TH/MM3 (1.8-7.7) Lymphocytes # (Auto) 1.5 TH/MM3 (1.0-4.8) Monocytes # (Auto) 0.9 TH/MM3 (0-0.9) Eosinophils # (Auto) 0.1 TH/MM3 (0-0.4) Basophils # (Auto) 0.0 TH/MM3 (0-0.2) CBC Comment DIFF FINAL Differential Comment Sodium Level 141 MEQ/L (136-145) Potassium Level 3.3 MEQ/L (3.5-5.1) Chloride Level 104 MEQ/L (98-107) Carbon Dioxide Level 24.4 MEQ/L (21.0-32.0) Anion Gap 13 MEQ/L (5-15) Blood Urea Nitrogen 8 MG/DL (7-18) Creatinine 0.65 MG/DL (0.60-1.30) Estimat Glomerular Filtration 162 ML/MIN Rate (>89) Random Glucose 68 MG/DL (74-106) Calcium Level 9.1 MG/DL (8.5-10.1) Phosphorus Level 3.6 MG/DL (2.5-4.9) Magnesium Level 1.9 MG/DL (1.5-2.5) Vancomycin Level Trough 14.9 MCG/ML (5.0-10.0) Result Diagram: 09/27/16 0449 09/27/16 0449 Microbiology Microbiology Date/Time Procedure Status Source Growth 09/25/16 06:50 Stool Occult Blood (STAR) - Final Complete Stool Stool HEMOCCULT POSITIVE 09/25/16 11:30 Aerobic Blood Culture - Preliminary Resulted Blood Peripheral NO GROWTH IN 1 DAY 09/25/16 11:30 Anaerobic Blood Culture - Preliminary Resulted Blood Peripheral NO GROWTH IN 1 DAY Imaging Last Impressions Abdomen/Pelvis CT 09/26/16 0000 Signed Impressions: Service Date/Time: Monday, September 26, 2016 15:05 - CONCLUSION: No definite acute CT findings in the abdomen or pelvis. Josafat Meyer MD Chest X-Ray 09/25/16 0000 Signed Impressions: Service Date/Time: Sunday, September 25, 2016 11:45 - CONCLUSION: Developing patchy air space disease right upper lobe. Conrad Stewart MD FACR Renal Ultrasound 08/28/16 0000 Signed Impressions: Service Date/Time: Sunday, August 28, 2016 20:03 - CONCLUSION: Mild increased echotexture of both kidneys. Baldev Vu MD Upper Extremity Ultrasound 08/19/16 0000 Signed Impressions: Service Date/Time: Friday, August 19, 2016 22:32 - CONCLUSION: Left cephalic vein occlusive thrombus noted in the antecubital fossa. Baldev Vu MD Lumbar Puncture Fluoroscopy 08/17/16 0000 Signed Impressions: Service Date/Time: Wednesday, August 17, 2016 12:26 - CONCLUSION: Uncomplicated fluoroscopically guided lumbar puncture. Vishal Beckford Jr., MD Brain MRI 08/17/16 0000 Signed Impressions: Service Date/Time: Wednesday, August 17, 2016 13:28 - CONCLUSION: Remote long-standing areas of abnormality in the brainstem and middle cerebellar peduncle consistent with remote infarcts or contusion. No acute intracranial abnormality. Chacho Bright MD Abdomen X-Ray 08/17/16 0000 Signed Impressions: Service Date/Time: Wednesday, August 17, 2016 13:02 - CONCLUSION: No evidence of obstruction. No MRI incompatible foreign body is identified. Chacho Bright MD Head CT 08/16/16 0000 Signed Impressions: Service Date/Time: Tuesday, August 16, 2016 09:55 - CONCLUSION: Chronic ischemic changes left frontal lobe possibly from evidence of previous ventriculostomy placement, unchanged. No acute intracranial abnormality. Gen Potter MD Modified Barium Swallow 08/15/16 0000 Signed Impressions: Service Date/Time: Monday, August 15, 2016 00:00 - CONCLUSION: See report above and speech pathology report Chacho Bright MD Procedures * 08/19/16 -PEG tube placement * 08/17/16- lumbar puncture . Assessment and Plan Disease Oriented Problem List: (1) Neurologic type Behcet's syndrome (2) Sepsis (3) Impaired mobility and activities of daily living Symptom Scale: (1) Debility 0-10 Scale: Unable to quantify Comment: Progressive secondary to neuro-Behcet's syndrome, CVA. Now bed bound. (2) Depression 0-10 Scale: Unable to quantify Comment: History of depression, on Celexa at home. Crying outburst. Pertinent Non-Medical Issues Psychosocial: Reported as . Unknown if he has any children. Spiritual: No spiritual affiliations. Legal: No living will or advanced directives found in medical records. Patricia Harrell presented as and has been acting as healthcare proxy. Ethical issues impacting care: No living will or advanced directives found in medical records. Patricia Harrell presented as and has been acting as healthcare proxy. . Important Contacts Patricia Harrell -reported as . [phone]. . Prognosis Mr. 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 Patient presented to the ED on 08/13/16 via EMS were reports of decreased oral intake for the prior 2-3 days and skin tear to left upper extremity. He was admitted for sepsis. Patient is at high risk for further complications, continue decline and . His diagnosis of neuro- Behcet's syndrome was done at [facility]. Code Status: Full Code Plan * Pt on my visit today, is much more clear and answered questions consistently and appropriately. He can nod and shake head for yes or no. When asked if he was in [facility], He shook his head no. When asked if he was in [place], he nod for yes. When asked the color of the grass is usually green, he noded yes. When asked if color of the homa on a clear erick day is pink, he shook is head for no He has capacity to make medical decisions and designate HCS for me today. * Health Care Decision maker When asked if Patricia Lebron is his , Pt nodded yes. When asked should he loose capacity, could she make medical decisions for him and act as his HealthCare Surrogate, he got tearful and started to cry, but nodded yes. Nurse Le was present to witness conversation. He also gave approval for Patricia to sign consents for medical procedures for him. It may be difficult for him to angel due to his neuro/ muscular deficits to sign HCS. Pt endorse that Patricia Lebron is his and would be Proxy under [place] Statutes. Pt also verbally (witnessed by nurse) gave permission for Patricia to make medical decisions for him should he lose capacity and act as Health Care Surrogate. * CODE STATUS: He endorses a Full Code. * GOALS OF CARE: I updated pt, who is very emotional. Updated his clinical situation. He nodded yes to Full Code, and blood transfusion. He remains undecided about trach. Goals is aggressive and want to continue with aggressive care. * SYMPTOMS: == debility and just generalized discomfort. No new med rec. appears quite depressed, and tearful, but decline antidepressant at this point in time. * It is noted, that Patricia has been difficult to reach by Palliative care in the past, we have left multiple messages and sent a letter. Case management had been able to reach, her, and also medical team usually able to get consents to medical procedure signed. I am not sure if Patricia has been avoiding palliative care. * Palliative care will continue to follow-up with this patient and family as needed for clarifications of goals of care and support during this difficult time. . Time Spent Total Floor Time (mins): 45 Face to Face Time (mins): 30 Attestation To help prompt me to consider important information that might be impacting today's encounter and assessment, information from prior notes written by myself or my colleagues may have been "brought forward" into today's note. My signature on this note, however, is an attestation that I personally performed the exam, history, and/or decision-making noted today, and, unless otherwise indicated, the interactions with patient, family, and staff as well as the review of records all occurred today. I also attest that the listed assessment and stated plan reflect my best clinical judgment today based on the combination of historical information, prior notes, and today's exam/ interactions. When time spent is documented, it refers only to time spent today by the signer, or if indicated, combined time spent today by collaborating physician/nurse practitioner. Sekou Chen MD Sep 27, 2016 10:33
--- NOTE | 2016-09-27 12:01 | GIPROC ---
[facility] [address] [facility]. [facility], [address] COLONOSCOPY PROCEDURE REPORT EXAM DATE: 09/27/2016 PATIENT NAME: Devonte Mendoza MR #: [id number] BIRTHDATE: 1970 ENDOSCOPIST: Jana Patterson MD ORDER #: [id number] [employer] MATH TUTOR: Terence Grove and Isiah Dennis STATUS: inpatient INDICATIONS: The patient is a 46 yr old male here for a colonoscopy due to anemia, non-specific and heme-positive stool PROCEDURE PERFORMED: Colonoscopy with biopsy MEDICATIONS: Per Anesthesia and None. PREP QUALITY: fair ESTIMATED BLOOD LOSS: None CONSENT: The patient understands the risks and benefits of the procedure and understands that these risks include, but are not limited to: sedation, allergic reaction, infection, perforation and/or bleeding. Alternative means of evaluation and treatment include, among others: physical exam, x-rays, and/or surgical intervention. The patient elects to proceed with this endoscopic procedure. medical equipment was checked for proper function. Hand hygiene and appropriate measures for infection prevention was taken. After the risks, benefits and alternatives of the procedure were thoroughly explained, Informed consent was verified, confirmed and timeout was successfully executed by the treatment team. A digital exam revealed no abnormalities of the rectum The Pentax [id number] endoscope was introduced through the anus and advanced to the cecum, which was identified by both the appendix and ileocecal valve. The instrument was then slowly withdrawn as the colon was fully examined. COLON FINDINGS: Small ulcer in the ascending colon Bx done no sign of bleeding or old blood. Retroflexed views revealed no abnormalities The scope was then completely withdrawn from the patient and the procedure terminated. ADVERSE EVENTS: There were no complications. IMPRESSIONS: 1. Small ulcer in the ascending colon Bx done no sign of bleeding or old blood 2. Retroflexed views revealed no abnormalities 3. Revealed no abnormalities of the rectum RECOMMENDATIONS: 1. Await biopsy results. Biopsy results will not be ready for 7-10 days. If you don't hear from us in two weeks, call our office for results. 2. Yearly hemoccult 3. High fiber diet 4. May feed patient capsule endoscopy as outpatient RECALL: Return 5 years Colonoscopy Jana Patterson MD eSigned: Jana Patterson MD 09/27/2016 12:01 PM cc:
--- NOTE | 2016-09-27 12:41 | HHI.GIFU ---
Subjective Remarks no change, no sign of active bleed Objective Vitals I&O Vital Signs Date Time Temp Pulse Resp B/P Pulse Ox O2 Delivery O2 Flow Rate FiO2 09/27/16 12:00 114 09/27/16 10:00 113 09/27/16 08:00 111 09/27/16 06:00 108 09/27/16 04:00 98.8 107 19 130/77 100 09/27/16 04:00 107 09/27/16 02:00 100 09/27/16 00:00 98.9 107 14 115/65 100 09/27/16 00:00 107 09/26/16 22:00 101 09/26/16 21:45 100 21 09/26/16 20:00 118 09/26/16 20:00 99.0 118 13 95/68 100 09/26/16 18:00 102 09/26/16 16:00 99.5 114 17 105/66 99 09/26/16 16:00 113 09/26/16 14:00 122 I/O 09/26/16 09/26/16 09/26/16 09/27/16 09/27/16 09/27/16 07:00 15:00 23:00 07:00 15:00 23:00 Intake Total 1700 ml 1305 ml 760 ml 620 ml Output Total 1000 ml 2400 ml 1900 ml 2350 ml Balance 700 ml -1095 ml -1140 ml -1730 ml Intake Oral 0 ml IV Total 800 ml 1305 ml 700 ml 620 ml Packed Cells 900 ml Other 60 ml 0 ml Output Urine Total 550 ml 1700 ml 1000 ml 1500 ml Stool Total 450 ml 700 ml 900 ml 850 ml Laboratory Laboratory Tests Test 09/26/16 09/26/16 09/27/16 16:58 22:54 04:49 Hemoglobin 9.6 9.4 9.7 Hematocrit 29.7 27.9 28.5 White Blood Count 11.1 Red Blood Count 3.42 Mean Corpuscular Volume 83.4 Mean Corpuscular Hemoglobin 28.3 Mean Corpuscular Hemoglobin 34.0 Concent Red Cell Distribution Width 15.5 Platelet Count 410 Mean Platelet Volume 7.7 Neutrophils (%) (Auto) 77.4 Lymphocytes (%) (Auto) 13.5 Monocytes (%) (Auto) 7.7 Eosinophils (%) (Auto) 1.1 Basophils (%) (Auto) 0.3 Neutrophils # (Auto) 8.6 Lymphocytes # (Auto) 1.5 Monocytes # (Auto) 0.9 Eosinophils # (Auto) 0.1 Basophils # (Auto) 0.0 CBC Comment DIFF FINAL Differential Comment Sodium Level 141 Potassium Level 3.3 Chloride Level 104 Carbon Dioxide Level 24.4 Anion Gap 13 Blood Urea Nitrogen 8 Creatinine 0.65 Estimat Glomerular Filtration 162 Rate Random Glucose 68 Calcium Level 9.1 Phosphorus Level 3.6 Magnesium Level 1.9 Vancomycin Level Trough 14.9 Date/Time Procedure Status Source Growth 09/25/16 11:30 Aerobic Blood Culture - Preliminary Resulted Blood Peripheral NO GROWTH IN 2 DAYS 09/25/16 11:30 Anaerobic Blood Culture - Preliminary Resulted Blood Peripheral NO GROWTH IN 2 DAYS 09/25/16 06:50 Stool Occult Blood (STAR) - Final Complete Stool Stool HEMOCCULT POSITIVE Physical Exam HEENT: Normocephalic; atraumatic; no jaundice. CHEST: Resp even/unlabored, diminished bases CARDIAC: RRR ABDOMEN: Soft, nondistended, nontender; no hepatosplenomegaly; bowel sounds are present in all four quadrants.PEG tube site without redness or swelling, EXTREMITIES: No clubbing, cyanosis, or edema. SKIN: Normal; no rash; no jaundice. MACHINE SPECIALIST: Nonverbal, but nods head appropriately and follows commands rectal tube in place. Assessment and Plan Plan ASSESSMENT: - Dysphagia. 46 year old male with of history neuro-Behcet's diagnosed at [place] , left frontal CVA, mural thrombus, brain abscess, meningitis, hypertension, diabetes, presents for decreased oral intake over the past 23 days, and skin tear at the left upper extremity and was found sepsis, leukocytosis of unknown source. MBS----> severe oral/pharyngeal phase dysphagia. Will need PEG as primary nutrition, pleasure feeds of liquids thickened to honey consistency tsp by tsp and/or purees. S/P EGD with PEG tube placement (07/19/16). Site without redness or swelling. [employer] recommends Glucerna 1.0 at 75cc/hr. - Sepsis/leukocytosis/febrile/ tachy cardiac - no known etiology, abx, ID on the case, S/P LP - Left antecubital skin tear- wound care nurse on the case, - History of neuro-Behcet's diagnosed at [place], left frontal CVA, bedbound, nonverbal, mural thrombus, brain abscess, meningitis, hypertension, diabetes per attending 4-4-17 doing about the same HGB stable, colonoscopy showed small ulcer in the ascending colon Bx done, not likely to be source of his anemia or bleed Plan: - Puree, honey thickened liquids for pleasure - Glucerna 1.0 at 75 cc/hr - capsule endoscopy as outpatient - GI will sign off, please reconsult as needed Jana Patterson MD Sep 27, 2016 12:41
[2016-09-27 17:49] LABS: BACTERIA, URINE RARE /hpf; BILIRUBIN, URINE NEG (NEG); BLOOD, URINE TRACE (NEG); GLUCOSE,URINE NEG (NEG); HYALINE CAST, URINE 5 /lpf (RARE); KETONE, URINE 40 mg/dL (NEG); MUCUS URINE FEW /lpf (OCC); NITRITE,URINE NEG (NEG); SQUAMOUS EPITHELIAL CELL URINE <1 /hpf (0-5); URINE COLOR LIGHT-YELLOW (YELLW/STRAW); URINE LEUKOCYTE ESTERASE SMALL (NEG)
[2016-09-27] MEDS: VANCOMYCIN INJ 1,250 MG in SODIUM CHLOR 0.9% 250 ML INJ 250 ML IV SCH (18:27)
[2016-09-27] MEDS: PANTOPRAZOLE INJ 80 MG in SODIUM CHLORIDE 0.9% INJ 100 ML IV SCH ×2 (18:28→19:29)
--- NOTE | 2016-09-27 18:40 | HHI.IDPN ---
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 Vital Signs Date Time Temp Pulse Resp B/P Pulse Ox O2 Delivery O2 Flow Rate FiO2 09/27/16 16:00 107 09/27/16 14:00 110 09/27/16 12:30 97.9 93 18 128/71 96 Nasal Cannula 2 09/27/16 12:15 94 18 148/75 95 Nasal Cannula 2 09/27/16 12:08 98.5 98 18 137/73 98 Nasal Cannula 2 09/27/16 12:00 114 09/27/16 10:00 113 09/27/16 08:00 111 09/27/16 06:00 108 09/27/16 04:00 98.8 107 19 130/77 100 09/27/16 04:00 107 09/27/16 02:00 100 09/27/16 00:00 98.9 107 14 115/65 100 09/27/16 00:00 107 09/26/16 22:00 101 09/26/16 21:45 100 21 09/26/16 20:00 118 09/26/16 20:00 99.0 118 13 95/68 100 09/26/16 09/26/16 09/27/16 15:00 23:00 07:00 Intake Total 1305 ml 760 ml 620 ml Output Total 2400 ml 1900 ml 2350 ml Balance -1095 ml -1140 ml -1730 ml Intake Oral 0 ml IV Total 1305 ml 700 ml 620 ml Other 60 ml 0 ml Output Urine Total 1700 ml 1000 ml 1500 ml Stool Total 700 ml 900 ml 850 ml . Laboratory Tests Test 09/25/16 09/26/16 09/26/16 09/26/16 21:40 05:59 16:58 22:54 Hemoglobin 6.9 GM/DL 10.6 GM/DL 9.6 GM/DL 9.4 GM/DL Hematocrit 22.2 % 32.4 % 29.7 % 27.9 % White Blood Count 15.9 TH/MM3 Red Blood Count 3.84 MIL/MM3 Mean Corpuscular Volume 84.2 FL Mean Corpuscular Hemoglobin 27.7 PG Mean Corpuscular Hemoglobin 32.9 % Concent Red Cell Distribution Width 14.8 % Platelet Count 374 TH/MM3 Mean Platelet Volume 8.3 FL Neutrophils (%) (Auto) 83.6 % Lymphocytes (%) (Auto) 10.0 % Monocytes (%) (Auto) 6.0 % Eosinophils (%) (Auto) 0.1 % Basophils (%) (Auto) 0.3 % Neutrophils # (Auto) 13.3 TH/MM3 Lymphocytes # (Auto) 1.6 TH/MM3 Monocytes # (Auto) 1.0 TH/MM3 Eosinophils # (Auto) 0.0 TH/MM3 Basophils # (Auto) 0.0 TH/MM3 CBC Comment AUTO DIFF Differential Total Cells 100 Counted Neutrophils % (Manual) 77 % Band Neutrophils % 7 % Lymphocytes % 9 % Monocytes % 6 % Neutrophils # (Manual) 13.5 TH/MM3 Myelocytes 1 % Differential Comment FINAL DIFF MANUAL Platelet Estimate NORMAL Platelet Morphology Comment NORMAL Red Cell Morphology Comment NORMAL Test 09/27/16 04:49 White Blood Count 11.1 TH/MM3 Red Blood Count 3.42 MIL/MM3 Hemoglobin 9.7 GM/DL Hematocrit 28.5 % Mean Corpuscular Volume 83.4 FL Mean Corpuscular Hemoglobin 28.3 PG Mean Corpuscular Hemoglobin 34.0 % Concent Red Cell Distribution Width 15.5 % Platelet Count 410 TH/MM3 Mean Platelet Volume 7.7 FL Neutrophils (%) (Auto) 77.4 % Lymphocytes (%) (Auto) 13.5 % Monocytes (%) (Auto) 7.7 % Eosinophils (%) (Auto) 1.1 % Basophils (%) (Auto) 0.3 % Neutrophils # (Auto) 8.6 TH/MM3 Lymphocytes # (Auto) 1.5 TH/MM3 Monocytes # (Auto) 0.9 TH/MM3 Eosinophils # (Auto) 0.1 TH/MM3 Basophils # (Auto) 0.0 TH/MM3 CBC Comment DIFF FINAL Differential Comment Laboratory Tests Test 09/26/16 09/27/16 05:59 04:49 Sodium Level 135 MEQ/L 141 MEQ/L Potassium Level 4.2 MEQ/L 3.3 MEQ/L Chloride Level 101 MEQ/L 104 MEQ/L Carbon Dioxide Level 26.0 MEQ/L 24.4 MEQ/L Anion Gap 8 MEQ/L 13 MEQ/L Blood Urea Nitrogen 8 MG/DL 8 MG/DL Creatinine 0.63 MG/DL 0.65 MG/DL Estimat Glomerular Filtration 168 ML/MIN 162 ML/MIN Rate Random Glucose 86 MG/DL 68 MG/DL Calcium Level 8.6 MG/DL 9.1 MG/DL Phosphorus Level 3.2 MG/DL 3.6 MG/DL Magnesium Level 1.7 MG/DL 1.9 MG/DL Microbiology Date/Time Procedure Status Source Growth 09/25/16 06:50 Stool Occult Blood (STAR) - Final Complete Stool Stool HEMOCCULT POSITIVE 09/25/16 11:30 Aerobic Blood Culture - Preliminary Resulted Blood Peripheral NO GROWTH IN 2 DAYS 09/25/16 11:30 Anaerobic Blood Culture - Preliminary Resulted Blood Peripheral NO GROWTH IN 2 DAYS 09/27/16 16:00 Urine Culture Received Urine Catheterized Urine Pending Imaging Last Impressions Abdomen/Pelvis CT 09/26/16 0000 Signed Impressions: Service Date/Time: Monday, September 26, 2016 15:05 - CONCLUSION: No definite acute CT findings in the abdomen or pelvis. Josafat Meyer MD Chest X-Ray 09/25/16 0000 Signed Impressions: Service Date/Time: Sunday, September 25, 2016 11:45 - CONCLUSION: Developing patchy air space disease right upper lobe. Conrad Stewart MD FACR Renal Ultrasound 08/28/16 0000 Signed Impressions: Service Date/Time: Sunday, August 28, 2016 20:03 - CONCLUSION: Mild increased echotexture of both kidneys. Baldev Vu MD Upper Extremity Ultrasound 08/19/16 0000 Signed Impressions: Service Date/Time: Friday, August 19, 2016 22:32 - CONCLUSION: Left cephalic vein occlusive thrombus noted in the antecubital fossa. Baldev Vu MD Lumbar Puncture Fluoroscopy 08/17/16 0000 Signed Impressions: Service Date/Time: Wednesday, August 17, 2016 12:26 - CONCLUSION: Uncomplicated fluoroscopically guided lumbar puncture. Vishal Beckford Jr., MD Brain MRI 08/17/16 0000 Signed Impressions: Service Date/Time: Wednesday, August 17, 2016 13:28 - CONCLUSION: Remote long-standing areas of abnormality in the brainstem and middle cerebellar peduncle consistent with remote infarcts or contusion. No acute intracranial abnormality. Chacho Bright MD Abdomen X-Ray 08/17/16 0000 Signed Impressions: Service Date/Time: Wednesday, August 17, 2016 13:02 - CONCLUSION: No evidence of obstruction. No MRI incompatible foreign body is identified. Chacho Bright MD Head CT 08/16/16 0000 Signed Impressions: Service Date/Time: Tuesday, August 16, 2016 09:55 - CONCLUSION: Chronic ischemic changes left frontal lobe possibly from evidence of previous ventriculostomy placement, unchanged. No acute intracranial abnormality. Gen Potter MD Modified Barium Swallow 08/15/16 0000 Signed Impressions: Service Date/Time: Monday, August 15, 2016 00:00 - CONCLUSION: See report above and speech pathology report Chacho Bright MD Physical Exam GENERAL: Poorly nourished, chronically ill appearing patient, in no apparent distress. SKIN: Old scars on arms. HEAD: Atraumatic. Normocephalic. No temporal or scalp tenderness. EYES: Pupils equal round and reactive. Extraocular motions intact. No scleral icterus. No injection or drainage. ENT: moist mucosae CARDIOVASCULAR: HS audible. No murmur. RESPIRATORY:. Breath sounds equal bilaterally. clear to auscultation GASTROINTESTINAL: Abdomen soft, non-tender, minimally distended. : maurice in place with clear yellow urine MUSCULOSKELETAL: Extremities without clubbing, cyanosis, or edema. Wasting and contractures NEUROLOGICAL: Awake and alert. Aphasic. Communicates with yes/no LE weakness but able to flex both limbs minimally. Contractures noted. Psych: unabe to assess IV line sites with no e.o infection. 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 New PNA RUL Plan: Follow blood and urine cultures cont zosyn, vanco for now Isolate for VRE colonisation in the wound fu blood clx untill final chk sputum clx repeat CXR if all clx remain negative will dc abx soon tristan Barbosaman,Margie A. MD Sep 27, 2016 18:40
[2016-09-28] VITALS (14 sets, daily range): BP systolic 112–171; BP diastolic 66–123; PULSE 93–108; RESP 11–15; TEMP 97.5–98.7; O2SAT 94–100
[2016-09-28] MEDS: PIPERACIL-TAZO 4.5 GM PREMIX 100 ML IV SCH ×4 (00:45→21:21)
[2016-09-28 04:20] LABS: AUTOMATED NEUTROPHIL # 6.1 TH/MM3 (1.8-7.7); BASOPHIL % 0.1 % (0.0-2.0); EOSINOPHIL # 0.2 TH/MM3 (0-0.4); EOSINOPHIL % 2.8 % (0.0-4.0); HEMATOCRIT 28.7 % (39.0-51.0); HEMOGLOBIN 9.7 GM/DL (13.0-17.0); LYMPH % 16.2 % (9.0-44.0); LYMPHOCYTE # 1.3 TH/MM3 (1.0-4.8); MEAN CELL VOLUME 83.6 FL (80.0-100.0); MEAN CORPUSCULAR HEMOGLOBIN 28.4 PG (27.0-34.0); MEAN CORPUSCULAR HGB CONC 33.9 % (32.0-36.0); MEAN PLATELET VOLUME 7.6 FL (7.0-11.0); MONO % 7.2 % (0.0-8.0); MONOCYTE # 0.6 TH/MM3 (0-0.9); NEUT % 73.7 % (16.0-70.0); PLATELET COUNT 497 TH/MM3 (150-450); RED BLOOD COUNT 3.43 MIL/MM3 (4.50-5.90); RED CELL DISTRIBUTION WIDTH 15.1 % (11.6-17.2); WHITE BLOOD COUNT 8.3 TH/MM3 (4.0-11.0)
--- NOTE | 2016-09-28 04:45 | RADRPT ---
EXAM DATE/TIME: 09/28/2016 03:32 [facility] COMPARISON: CHEST SINGLE AP, September 25, 2016, 11:45. INDICATIONS : Shortness of breath. MEDICAL HISTORY : Stroke. Cardiovascular disease. SURGICAL HISTORY : None. ENCOUNTER: Subsequent ACUITY: 2 days PAIN SCORE: Non-responsive. LOCATION: Bilateral chest FINDINGS: Single portable frontal view of the chest shows no change. Right upper lobe parenchymal consolidation is again noted. Left lung is clear. No effusions. Heart is normal in size. Old left clavicular fract ure. CONCLUSION: Unchanged right upper lobe infiltrate. Vishal Beckford Jr., MD on September 28, 2016 at 4:43 Board Certified Radiologist. This report was verified electronically.
[2016-09-28 04:47] LABS: CREATININE 0.5 MG/DL (0.60-1.30)
[2016-09-28] MEDS: INSULIN NovoLIN REGULAR SUPPLEMENTAL SCALE SQ SCH ×4 (05:00→21:43)
[2016-09-28] MEDS: VANCOMYCIN INJ 1,250 MG in SODIUM CHLOR 0.9% 250 ML INJ 250 ML IV SCH ×2 (05:22→17:09)
[2016-09-28] MEDS: POTASSIUM CHLOR 20 MEQ PREMIX 100 ML IV PRN ×4 (05:22→13:23)
[2016-09-28] MEDS: METOPROLOL TARTRATE 25 MG TAB PO SCH ×2 (08:37→21:21)
[2016-09-28] MEDS: FLUoxetine HCL 10 MG CAP PO SCH (08:37)
[2016-09-28] MEDS: PANTOPRAZOLE INJ 80 MG in SODIUM CHLORIDE 0.9% INJ 100 ML IV SCH ×2 (08:37→21:21)
[2016-09-28] MEDS: COLLAGENASE OINT 30 GM TUBE TOP SCH (08:43)
--- NOTE | 2016-09-28 09:44 | HHI.HCPN ---
Reason for visit a. To assist with evaluation and management of symptoms including: debility , depression b. To assist medical decision maker(s) with: better understanding of current medical conditions; weighing benefits/burdens of medical treatment options; making medical treatment decisions. . Subjective/Interval History Pt's Afebrile, leukocytosis resolved. Hgb remain stable. Pt underwent colonoscopy, colonoscopy showed small ulcer in the ascending colon. Plan for honey thickened liquids for pleasure and continue Glucerna. GI has signed off. Pt is very alert, and interactive. Able to indicate is left knee bother, him due to position in the bed, and able to indicate posture repositioning in which he felt comfortable. He try to mouth words more, but still very difficult to understand. He has some use of his left hand, but in terms of arm coordination, he shook his head no, on indicating he could use his arms to sign forms. He is able to nod and shake head appropriately. Shook head when asked if he was in [place]. Nod for yes when ask if he was in [place] and [facility]. He nod yes that Patricia is his , consistent with yesterday. He nodded yes to inidcate Patricia could serve as his HCS or sign consents for him. I asked if he and Patricia ever talked about if you need to be on life support coat hanger shaper machine operator, trach, or ventilator, He stated no. I asked him about tracheostomy , he does not know. He did say he did not want to be in prolong life support, although he is unsure timeframe. He wants to think about it, and amenable to bring Patricia into the discussion. Family/friend interactions no family at bedside. Left Message for Patricia. Advance Directives Living Will: Never completed Health Care Surrogate: Never completed Durable Power of Caramel Coloring Operator: Never completed Advance Directive Specifics Health Care Surrogate(s): No living will or healthcare surrogate designation found in medical records. Patricia Harrell acting as healthcare proxy. Unclear at this time if they are legally . . Documented care wishes: No living well documented. Objective Vital Signs Date Time Temp Pulse Resp B/P Pulse Ox O2 Delivery O2 Flow Rate FiO2 09/28/16 07:45 94 09/28/16 06:00 100 09/28/16 04:00 98 09/28/16 04:00 98.4 98 14 138/80 98 09/28/16 02:00 93 09/28/16 01:00 155/97 09/28/16 00:00 98.7 93 13 171/123 100 09/28/16 00:00 93 09/27/16 22:00 94 09/27/16 20:00 99.0 104 12 130/79 100 09/27/16 20:00 104 09/27/16 18:00 102 09/27/16 16:00 98.2 95 16 130/79 93 09/27/16 16:00 107 09/27/16 14:00 110 09/27/16 12:30 97.9 93 18 128/71 96 Nasal Cannula 2 09/27/16 12:15 94 18 148/75 95 Nasal Cannula 2 09/27/16 12:08 98.5 98 18 137/73 98 Nasal Cannula 2 09/27/16 12:00 98.2 96 17 138/60 99 09/27/16 12:00 114 09/27/16 10:00 113 Intake & Output 09/28/16 09/28/16 07:00 19:00 Intake Total 1190 ml Output Total 1900 ml Balance -710 ml Intake Oral 0 ml IV Total 1130 ml Other 60 ml Output Urine Total 1900 ml Stool Total 0 ml Physical Exam CONSTITUTIONAL/GENERAL: This is a thin patient in no acute distress, aphasic. Pt follow commands, and nod and shake head appropriately for me today. Less tearful. TUBES/LINES/DRAINS: PIV's, PEG tube. SKIN: No jaundice. Skin temperature appropriate. Not diaphoretic. HEAD: Atraumatic. Normocephalic. EYES: Pupils equal and round and reactive. ENT: Hearing grossly normal. Nose without bleeding or purulent drainage. Throat without visible erythema or exudates. Moderate amount of oral clear secretions. NECK: Trachea midline. Supple, nontender. CARDIOVASCULAR: Regular rate and rhythm without murmurs, gallops, or rubs. No JVD. Peripheral pulses symmetric. RESPIRATORY/CHEST: noted some tachypnea, some rhonchi. GASTROINTESTINAL: Abdomen soft, non-tender, nondistended. PEG tube in place, same cover with dressing. No guarding. Bowel sounds present. GENITOURINARY: Without palpable bladder distension. MUSCULOSKELETAL: Extremities without clubbing, cyanosis, or edema. Muscle wasting noted. NEUROLOGICAL: Awake. Following commands, interactive, and nod yes and no appropriately. Right-sided hemiparesis. Left sided some use of hand and arm. PSYCHIATRIC: Appears restless. . Diagnostic Tests Laboratory Laboratory Tests Test 09/25/16 09/25/16 09/25/16 09/25/16 11:30 13:15 13:25 15:39 White Blood Count 17.1 TH/MM3 17.2 TH/MM3 (4.0-11.0) (4.0-11.0) Red Blood Count 3.72 MIL/MM3 3.24 MIL/MM3 (4.50-5.90) (4.50-5.90) Hemoglobin 10.2 GM/DL 9.6 GM/DL 8.6 GM/DL (13.0-17.0) (13.0-17.0) (13.0-17.0) Hematocrit 31.4 % 29.9 % 27.4 % (39.0-51.0) (39.0-51.0) (39.0-51.0) Mean Corpuscular Volume 84.4 FL 84.6 FL (80.0-100.0) (80.0-100.0) Mean Corpuscular Hemoglobin 27.5 PG 26.5 PG (27.0-34.0) (27.0-34.0) Mean Corpuscular Hemoglobin 32.5 % 31.3 % Concent (32.0-36.0) (32.0-36.0) Red Cell Distribution Width 16.5 % 16.6 % (11.6-17.2) (11.6-17.2) Platelet Count 668 TH/MM3 509 TH/MM3 (150-450) (150-450) Mean Platelet Volume 8.6 FL 8.8 FL (7.0-11.0) (7.0-11.0) Neutrophils (%) (Auto) 84.9 % 87.8 % (16.0-70.0) (16.0-70.0) Lymphocytes (%) (Auto) 9.2 % 6.1 % (9.0-44.0) (9.0-44.0) Monocytes (%) (Auto) 3.7 % (0.0-8.0) 5.6 % (0.0-8.0) Eosinophils (%) (Auto) 0.2 % (0.0-4.0) 0.1 % (0.0-4.0) Basophils (%) (Auto) 2.0 % (0.0-2.0) 0.4 % (0.0-2.0) Neutrophils # (Auto) 14.6 TH/MM3 15.1 TH/MM3 (1.8-7.7) (1.8-7.7) Lymphocytes # (Auto) 1.6 TH/MM3 1.0 TH/MM3 (1.0-4.8) (1.0-4.8) Monocytes # (Auto) 0.6 TH/MM3 1.0 TH/MM3 (0-0.9) (0-0.9) Eosinophils # (Auto) 0.0 TH/MM3 0.0 TH/MM3 (0-0.4) (0-0.4) Basophils # (Auto) 0.3 TH/MM3 0.1 TH/MM3 (0-0.2) (0-0.2) CBC Comment AUTO DIFF DIFF FINAL Differential Comment AUTO DIFF CONFIRMED Prothrombin Time 11.3 SEC (9.8-11.6) Prothromb Time International 1.0 RATIO Ratio Activated Partial 33.1 SEC Thromboplast Time (24.3-30.1) Sodium Level 137 MEQ/L (136-145) Potassium Level 4.2 MEQ/L (3.5-5.1) Chloride Level 100 MEQ/L (98-107) Carbon Dioxide Level 26.4 MEQ/L (21.0-32.0) Anion Gap 11 MEQ/L (5-15) Blood Urea Nitrogen 14 MG/DL (7-18) Creatinine 0.70 MG/DL (0.60-1.30) Estimat Glomerular Filtration 148 ML/MIN Rate (>89) Random Glucose 146 MG/DL (74-106) Calcium Level 9.5 MG/DL (8.5-10.1) Hemoglobin A1c 6.6 % (4.3-6.0) Phosphorus Level 2.8 MG/DL (2.5-4.9) Lactic Acid Level 1.8 mmol/L (0.4-2.0) Blood Type A POSITIVE Antibody Screen NEGATIVE Blood Bank Comment Crossmatch Leukocyte-Reduced Red Blood Cells Test 09/25/16 09/26/16 09/26/16 09/26/16 21:40 05:59 16:58 22:54 Hemoglobin 6.9 GM/DL 10.6 GM/DL 9.6 GM/DL 9.4 GM/DL (13.0-17.0) (13.0-17.0) (13.0-17.0) (13.0-17.0) Hematocrit 22.2 % 32.4 % 29.7 % 27.9 % (39.0-51.0) (39.0-51.0) (39.0-51.0) (39.0-51.0) White Blood Count 15.9 TH/MM3 (4.0-11.0) Red Blood Count 3.84 MIL/MM3 (4.50-5.90) Mean Corpuscular Volume 84.2 FL (80.0-100.0) Mean Corpuscular Hemoglobin 27.7 PG (27.0-34.0) Mean Corpuscular Hemoglobin 32.9 % Concent (32.0-36.0) Red Cell Distribution Width 14.8 % (11.6-17.2) Platelet Count 374 TH/MM3 (150-450) Mean Platelet Volume 8.3 FL (7.0-11.0) Neutrophils (%) (Auto) 83.6 % (16.0-70.0) Lymphocytes (%) (Auto) 10.0 % (9.0-44.0) Monocytes (%) (Auto) 6.0 % (0.0-8.0) Eosinophils (%) (Auto) 0.1 % (0.0-4.0) Basophils (%) (Auto) 0.3 % (0.0-2.0) Neutrophils # (Auto) 13.3 TH/MM3 (1.8-7.7) Lymphocytes # (Auto) 1.6 TH/MM3 (1.0-4.8) Monocytes # (Auto) 1.0 TH/MM3 (0-0.9) Eosinophils # (Auto) 0.0 TH/MM3 (0-0.4) Basophils # (Auto) 0.0 TH/MM3 (0-0.2) CBC Comment AUTO DIFF Differential Total Cells 100 Counted Neutrophils % (Manual) 77 % (16-70) Band Neutrophils % 7 % (0-6) Lymphocytes % 9 % (9-44) Monocytes % 6 % (0-8) Neutrophils # (Manual) 13.5 TH/MM3 (1.8-7.7) Myelocytes 1 % (0-0) Differential Comment FINAL DIFF MANUAL Platelet Estimate NORMAL (NORMAL) Platelet Morphology Comment NORMAL (NORMAL) Red Cell Morphology Comment NORMAL (NORMAL) Sodium Level 135 MEQ/L (136-145) Potassium Level 4.2 MEQ/L (3.5-5.1) Chloride Level 101 MEQ/L (98-107) Carbon Dioxide Level 26.0 MEQ/L (21.0-32.0) Anion Gap 8 MEQ/L (5-15) Blood Urea Nitrogen 8 MG/DL (7-18) Creatinine 0.63 MG/DL (0.60-1.30) Estimat Glomerular Filtration 168 ML/MIN Rate (>89) Random Glucose 86 MG/DL (74-106) Calcium Level 8.6 MG/DL (8.5-10.1) Phosphorus Level 3.2 MG/DL (2.5-4.9) Magnesium Level 1.7 MG/DL (1.5-2.5) Test 09/27/16 09/27/16 09/28/16 04:49 16:00 03:56 White Blood Count 11.1 TH/MM3 8.3 TH/MM3 (4.0-11.0) (4.0-11.0) Red Blood Count 3.42 MIL/MM3 3.43 MIL/MM3 (4.50-5.90) (4.50-5.90) Hemoglobin 9.7 GM/DL 9.7 GM/DL (13.0-17.0) (13.0-17.0) Hematocrit 28.5 % 28.7 % (39.0-51.0) (39.0-51.0) Mean Corpuscular Volume 83.4 FL 83.6 FL (80.0-100.0) (80.0-100.0) Mean Corpuscular Hemoglobin 28.3 PG 28.4 PG (27.0-34.0) (27.0-34.0) Mean Corpuscular Hemoglobin 34.0 % 33.9 % Concent (32.0-36.0) (32.0-36.0) Red Cell Distribution Width 15.5 % 15.1 % (11.6-17.2) (11.6-17.2) Platelet Count 410 TH/MM3 497 TH/MM3 (150-450) (150-450) Mean Platelet Volume 7.7 FL 7.6 FL (7.0-11.0) (7.0-11.0) Neutrophils (%) (Auto) 77.4 % 73.7 % (16.0-70.0) (16.0-70.0) Lymphocytes (%) (Auto) 13.5 % 16.2 % (9.0-44.0) (9.0-44.0) Monocytes (%) (Auto) 7.7 % (0.0-8.0) 7.2 % (0.0-8.0) Eosinophils (%) (Auto) 1.1 % (0.0-4.0) 2.8 % (0.0-4.0) Basophils (%) (Auto) 0.3 % (0.0-2.0) 0.1 % (0.0-2.0) Neutrophils # (Auto) 8.6 TH/MM3 6.1 TH/MM3 (1.8-7.7) (1.8-7.7) Lymphocytes # (Auto) 1.5 TH/MM3 1.3 TH/MM3 (1.0-4.8) (1.0-4.8) Monocytes # (Auto) 0.9 TH/MM3 0.6 TH/MM3 (0-0.9) (0-0.9) Eosinophils # (Auto) 0.1 TH/MM3 0.2 TH/MM3 (0-0.4) (0-0.4) Basophils # (Auto) 0.0 TH/MM3 0.0 TH/MM3 (0-0.2) (0-0.2) CBC Comment DIFF FINAL DIFF FINAL Differential Comment Sodium Level 141 MEQ/L 137 MEQ/L (136-145) (136-145) Potassium Level 3.3 MEQ/L 3.2 MEQ/L (3.5-5.1) (3.5-5.1) Chloride Level 104 MEQ/L 102 MEQ/L (98-107) (98-107) Carbon Dioxide Level 24.4 MEQ/L 26.0 MEQ/L (21.0-32.0) (21.0-32.0) Anion Gap 13 MEQ/L (5-15) 9 MEQ/L (5-15) Blood Urea Nitrogen 8 MG/DL (7-18) 6 MG/DL (7-18) Creatinine 0.65 MG/DL 0.50 MG/DL (0.60-1.30) (0.60-1.30) Estimat Glomerular Filtration 162 ML/MIN 219 ML/MIN Rate (>89) (>89) Random Glucose 68 MG/DL 88 MG/DL (74-106) (74-106) Calcium Level 9.1 MG/DL 9.0 MG/DL (8.5-10.1) (8.5-10.1) Phosphorus Level 3.6 MG/DL (2.5-4.9) Magnesium Level 1.9 MG/DL (1.5-2.5) Vancomycin Level Trough 14.9 MCG/ML (5.0-10.0) Urine Color LIGHT-YELLOW (YELLW/STRAW) Urine Turbidity CLEAR (CLEAR) Urine pH 6.0 (5.0-8.5) Urine Specific [place] 1.011 (1.002-1.035) Urine Protein NEG mg/dL (NEG-TRACE) Urine Glucose (UA) NEG mg/dL (NEG) Urine Ketones 40 mg/dL (NEG) Urine Occult Blood TRACE (NEG) Urine Nitrite NEG (NEG) Urine Bilirubin NEG (NEG) Urine Urobilinogen LESS THAN 2.0 MG/DL (LESS THAN 2.0) Urine Leukocyte Esterase SMALL (NEG) Urine RBC 2 /hpf (0-3) Urine WBC 11 /hpf (0-5) Urine Squamous Epithelial <1 /hpf (0-5) Cells Urine Bacteria RARE /hpf (NONE) Urine Hyaline Casts 5 /lpf (RARE) Urine Mucus FEW /lpf (OCC) Microscopic Urinalysis Comment CULTURE INDICATED Result Diagram: 09/28/16 0356 09/28/16 0356 Microbiology Microbiology Date/Time Procedure Status Source Growth 09/25/16 11:30 Aerobic Blood Culture - Preliminary Resulted Blood Peripheral NO GROWTH IN 2 DAYS 09/25/16 11:30 Anaerobic Blood Culture - Preliminary Resulted Blood Peripheral NO GROWTH IN 2 DAYS 09/27/16 16:00 Urine Culture Received Urine Catheterized Urine Pending Procedures * 08/19/16 -PEG tube placement * 08/17/16- lumbar puncture . Assessment and Plan Disease Oriented Problem List: (1) Neurologic type Behcet's syndrome (2) Sepsis (3) Impaired mobility and activities of daily living Symptom Scale: (1) Debility 0-10 Scale: Unable to quantify Comment: Progressive secondary to neuro-Behcet's syndrome, CVA. Now bed bound. (2) Depression 0-10 Scale: Unable to quantify Comment: History of depression, on Celexa at home. Crying outburst. Pertinent Non-Medical Issues Psychosocial: Reported as . Unknown if he has any children. Spiritual: No spiritual affiliations. Legal: No living will or advanced directives found in medical records. Patricia Harrell presented as and has been acting as healthcare proxy. Ethical issues impacting care: No living will or advanced directives found in medical records. Patricia Harrell presented as and has been acting as healthcare proxy. . Important Contacts Patricia Mendoza. [phone]. . Prognosis Mr. 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 Patient presented to the ED on 08/13/16 via EMS were reports of decreased oral intake for the prior 2-3 days and skin tear to left upper extremity. He was admitted for sepsis. Patient is at high risk for further complications, continue decline and . His diagnosis of neuro- Behcet's syndrome was done at [facility]. Code Status: Full Code Plan * Capacity- pt regained capacity to make health care decision on 09/27/2016. Pt remains to have capacity to make medical decision today on reexamination 09/28/2016. Very clear. * Health Care Decision maker. (Pt evaluated and had capacity to make medical decisions on 09/27/2016) During that time he was asked When asked if Patricia Lebron is his , Pt nodded yes. When asked should he loose capacity, could she make medical decisions for him and act as his HealthCare Surrogate, he got tearful and started to cry, but nodded yes. Nurse Lujan was present to witness conversation. He also gave approval for Patricia to sign consents for medical procedures for him. It was difficult for him to sign due to his neuro/muscular deficits, contractures to sign HCS. (He have some use of his left hand, but in terms of arm not able to really coordinate well). Pt endorse that Patricia Lebron is his and would be Proxy under [place] Statutes. Pt also verbally (witnessed by nurse) gave permission for Patricia to make medical decisions for him should he lose capacity and act as Health Care Surrogate. * CODE STATUS: He endorses a Full Code. * GOALS OF CARE: I updated pt, who is very emotional. Updated his clinical situation. He nodded yes to Full Code, and blood transfusion. He remains undecided about trach, although he said he does not want to be on the vent for a prolong period of time. He is unsure what that is. He wants to think about it and amenable to bring Patricia into the conversation. Goals is aggressive and he want to continue with aggressive care. * SYMPTOMS: == debility and just generalized discomfort. No new med rec. appears quite depressed, and tearful, but decline antidepressant at this point in time. * It is noted, that Patricia has been difficult to reach by Palliative care in the past, we have left multiple messages and sent a letter. Case management had been able to reach, her, and also medical team usually able to get consents to medical procedure signed. I am not sure if Patricia has been avoiding palliative care. I have left another voicemail again (09/28/2016) * Palliative care will continue to follow-up with this patient and family as needed for clarifications of goals of care and support during this difficult time. . Time Spent Total Floor Time (mins): 37 Face to Face Time (mins): 25 Attestation To help prompt me to consider important information that might be impacting today's encounter and assessment, information from prior notes written by myself or my colleagues may have been "brought forward" into today's note. My signature on this note, however, is an attestation that I personally performed the exam, history, and/or decision-making noted today, and, unless otherwise indicated, the interactions with patient, family, and staff as well as the review of records all occurred today. I also attest that the listed assessment and stated plan reflect my best clinical judgment today based on the combination of historical information, prior notes, and today's exam/ interactions. When time spent is documented, it refers only to time spent today by the signer, or if indicated, combined time spent today by collaborating physician/nurse practitioner. Sekou Chen MD Sep 28, 2016 09:44
[2016-09-28] MEDS: SODIUM CHLOR 0.9% 1000 ML INJ 1,000 ML IV SCH ×2 (13:23→21:21)
--- NOTE | 2016-09-28 15:29 | HHI.CCPN ---
Subjective Remarks/Hospital Course 46-year-old rather unfortunate male with known history of brain abscess, frontal CVA, neuro Behcet's syndrome who was originally admitted to the hospital because of failure to thrive, decreased oral intake. Patient initial workup indicated sepsis with urinary tract infection. Patient was treated for that and was doing well. GI was consulted in which place a PEG tube for feeding for continued management and care. Patient does have sacral decubitus which is being managed by wound care nursing staff. Patient was in [place] for long-term care because of unable to place the patient in a facility. Patient was doing well until today when nursing staff notified attending physician that patient had a rather significant lower GI bleed with copious bright red blood, maroon blood clots, melena. At that time patient was rather tachycardic up to 148, blood pressure was taken after that and found to be 94/ 69. Temperature 101.1. Because of those reasons patient was transferred to ICU for stabilization. Patient was given 1 L fluid bolus. Blood pressure was monitored closely. Workup was entertained for sepsis secondary to the fever. Workup did indicate significant leukocytosis, chest x-ray with right upper lung consolidation. GI was called by attending team and transferred to [facility] is being arranged for emergent endoscopy due to the acute GI bleed. Patient has been started on empiric antibiotics include vancomycin and Zosyn. Blood cultures have been taken. Awaiting sputum culture. This patient was being transferred to [facility] ICU it was indicated by systems integration manager that a critical care consult should be placed. Hence critical care was consulted to assume medical management in the ICU. 09/26 Patient was transferred from yesterday for GI bleed s/p EGD yesterday which showed no signs of active bleeding. For Colonoscopy today. s/p transfusion 3u PRBC overnight for Hgb 6.9 repeat Hgb 10.6 this morning. Afebrile. 09/27 No acute events overnight. Afebrile. WBC trending down, H/J stable, for colonoscopy today. CT abdomen yesterday showed no acute findings. 09/28: Resting in bed comfortably. Not in any acute distress. No further bleeding. Colonoscopy yesterday showed an ulcer however no active bleeding. Objective Vital Signs Date Time Temp Pulse Resp B/P Pulse Ox O2 Delivery O2 Flow Rate FiO2 09/28/16 14:00 106 09/28/16 12:00 97.8 15 140/66 99 09/27/16 12:30 Nasal Cannula 2 09/26/16 21:45 21 Intake and Output 09/27/16 09/27/16 09/28/16 08:00 16:00 00:00 Intake Total 620 ml 823 ml 560 ml Output Total 2350 ml 2400 ml 900 ml Balance -1730 ml -1577 ml -340 ml Result Diagram: 09/28/16 0356 09/28/16 0356 Imaging Last Impressions Abdomen/Pelvis CT 09/26/16 0000 Signed Impressions: Service Date/Time: Monday, September 26, 2016 15:05 - CONCLUSION: No definite acute CT findings in the abdomen or pelvis. Josafat Meyer MD Chest X-Ray 09/25/16 0000 Signed Impressions: Service Date/Time: Sunday, September 25, 2016 11:45 - CONCLUSION: Developing patchy air space disease right upper lobe. Conrad Stewart MD FACR Renal Ultrasound 08/28/16 0000 Signed Impressions: Service Date/Time: Sunday, August 28, 2016 20:03 - CONCLUSION: Mild increased echotexture of both kidneys. Baldev Vu MD Upper Extremity Ultrasound 08/19/16 0000 Signed Impressions: Service Date/Time: Friday, August 19, 2016 22:32 - CONCLUSION: Left cephalic vein occlusive thrombus noted in the antecubital fossa. Baldev Vu MD Lumbar Puncture Fluoroscopy 08/17/16 0000 Signed Impressions: Service Date/Time: Wednesday, August 17, 2016 12:26 - CONCLUSION: Uncomplicated fluoroscopically guided lumbar puncture. Vishal Beckford Jr., MD Brain MRI 08/17/16 0000 Signed Impressions: Service Date/Time: Wednesday, August 17, 2016 13:28 - CONCLUSION: Remote long-standing areas of abnormality in the brainstem and middle cerebellar peduncle consistent with remote infarcts or contusion. No acute intracranial abnormality. Chacho Bright MD Abdomen X-Ray 08/17/16 0000 Signed Impressions: Service Date/Time: Wednesday, August 17, 2016 13:02 - CONCLUSION: No evidence of obstruction. No MRI incompatible foreign body is identified. Chacho Bright MD Head CT 08/16/16 0000 Signed Impressions: Service Date/Time: Tuesday, August 16, 2016 09:55 - CONCLUSION: Chronic ischemic changes left frontal lobe possibly from evidence of previous ventriculostomy placement, unchanged. No acute intracranial abnormality. Gen Potter MD Modified Barium Swallow 08/15/16 0000 Signed Impressions: Service Date/Time: Monday, August 15, 2016 00:00 - CONCLUSION: See report above and speech pathology report Chacho Bright MD Objective Remarks GENERAL: Patient i slying in bed in NAD SKIN: Warm and dry. HEAD: Normocephalic. EYES: No scleral icterus. No injection or drainage. NECK: Supple, trachea midline. No JVD or lymphadenopathy. CARDIOVASCULAR: Tachycardic without murmurs, gallops, or rubs. RESPIRATORY: Breath sounds equal bilaterally. No accessory muscle use. GASTROINTESTINAL: Abdomen soft, non-tender, nondistended. MUSCULOSKELETAL: No cyanosis, or edema. BACK: Nontender without obvious deformity. No CVA tenderness. A/P Problem List: (1) Severe sepsis ICD Code: A41.9 Status: Acute (2) GI bleed ICD Code: K92.2 Status: Acute (3) Leucocytosis ICD Code: D72.829 Status: Acute (4) Fever ICD Code: R50.9 Status: Acute (5) Pneumonia involving right lung ICD Code: J18.9 Status: Acute (6) 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 Assessment and Plan NEUROLOGY 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 Monitor neuro status and avoid sedatives Continue Prozac PULMONOLOGY Right lung pneumonia Continue O2 maintain O2 sats > 92% Bronchodilators CARDIOLOGY Low blood pressure, likely secondary to GI bleed versus shock Sinus tachycardia On Lopressor 12.5mg BID for rate control-monitor HR and BP keep MAP>65mmHg Continue with NS@84ml/hr. GASTROENTEROLOGY GI bleed Continue with Protonix infusion. -s/p EGD 09/25 no signs of active bleeding for colonoscopy today. -S/p transfusion 3units PRBC overnight on 09/26 monitor H/H. -09/26 CT abdomne/pelvis showed no acute findings Colonoscopy done on 09/27 with no active bleeding. RENAL Monitor renal function, I/O's, electrolyte replacement protocol. -Will need K replacement today INFECTION DISEASE Sepsis Leukocytosis, Right upper lung pneumonia Sacral decubitus Continue with abx per ID (vancomycin and Zosyn) Follow up on cultures CT abdomen/pelvis 09/26: No acute findings Pertinent cultures 09/25 C-diff PCR negative 09/10/16 Wound culture from sacral decubitus: Pseudo-fluoresceins/[place], enterococcus faecalis, enterococcus faecium VRE 08/26/16 urine culture with Daphney parapsilosis ENDOCRINOLOGY SSI for glycemic control HEMATOLOGY Monitor CBC , Keep Hgb >8.0 PROPHYLAXIS Protonix for GI protection SCD for DVT prophylaxis, chemical AC prophylaxis held for probable GI bleed and anemia requiring blood transfusion -08/19 Doppler US UE: Left cephalic vein occlusive thrombus noted in the antecubital fossa. Not a candidate for AC due to GI bleed and anemia Will repeat US UE. LINES Peripheral IVs Consult and transfer to hospitalist service for further medical management. Chico Reyes MD Sep 28, 2016 15:29
--- NOTE | 2016-09-28 21:55 | RADRPT ---
EXAM DATE/TIME: 09/28/2016 19:15 [place] COMPARISON: No previous studies available for comparison. INDICATIONS : Left arm thrombosis. MEDICAL HISTORY : Hypertension. CVA. Migraines. Numbness, bilateral hands. Incontinence. Gait problems. Anticoagulant therapy, Xarelto. Depression. VRE. SURGICAL HISTORY : Abdominal surgery. ENCOUNTER: Subsequent ACUITY: 1 month PAIN SCORE: 0/10 LOCATION: Left arm. FINDINGS: There is spontaneous flow documented in the brachial, basilic, axillary, and subclavian veins. The v essels are compressible and augmentation response is documented. There is superficial occlusive throm bosis in the left cephalic vein near the antecubital fossa. CONCLUSION: 1. Occlusive superficial thrombosis in the left cephalic vein near the antecubital fossa. No deep mor ous thrombosis. Sumit Bourgeois MD on September 28, 2016 at 21:52 Board Certified Radiologist. This report was verified electronically.
[2016-09-29] VITALS (10 sets, daily range): BP systolic 114–148; BP diastolic 72–86; PULSE 85–93; RESP 12–28; TEMP 97.5–98.3; O2SAT 95–100
[2016-09-29] MEDS: PIPERACIL-TAZO 4.5 GM PREMIX 100 ML IV SCH ×3 (02:07→13:08)
[2016-09-29] MEDS: INSULIN NovoLIN REGULAR SUPPLEMENTAL SCALE SQ SCH ×4 (05:00→22:59)
[2016-09-29] MEDS: PANTOPRAZOLE INJ 80 MG in SODIUM CHLORIDE 0.9% INJ 100 ML IV SCH ×3 (06:04→19:15)
[2016-09-29] MEDS: VANCOMYCIN INJ 1,250 MG in SODIUM CHLOR 0.9% 250 ML INJ 250 ML IV SCH (06:04)
[2016-09-29] MEDS: FLUoxetine HCL 10 MG CAP PO SCH (09:12)
[2016-09-29] MEDS: METOPROLOL TARTRATE 25 MG TAB PO SCH ×2 (09:12→21:03)
[2016-09-29] MEDS: COLLAGENASE OINT 30 GM TUBE TOP SCH (09:13)
--- NOTE | 2016-09-29 09:21 | HHI.PR ---
Subjective Remarks Follow-up GI bleed, pneumonia. Patient appears to be resting comfortably. He is nonverbal, but does answer questions by nodding his head. Denies pain currently. Objective Vitals Vital Signs Date Time Temp Pulse Resp B/P Pulse Ox O2 Delivery O2 Flow Rate FiO2 09/29/16 04:00 97.9 90 23 137/72 95 09/29/16 00:00 98.1 92 28 139/86 100 09/29/16 00:00 98.2 92 28 139/86 98 09/28/16 21:25 98 21 09/28/16 20:00 98.0 107 11 131/82 100 09/28/16 20:00 98.5 107 11 131/82 97 09/28/16 18:00 108 09/28/16 16:00 97.9 108 14 112/76 99 09/28/16 16:00 108 09/28/16 14:00 106 09/28/16 12:00 107 09/28/16 12:00 97.8 103 15 140/66 99 09/28/16 10:00 100 I/O 09/28/16 09/28/16 09/28/16 09/29/16 09/29/16 09/29/16 07:00 15:00 23:00 07:00 15:00 23:00 Intake Total 630 ml 2443 ml 1684 ml 1429 ml Output Total 1000 ml 2150 ml 1850 ml 1700 ml Balance -370 ml 293 ml -166 ml -271 ml Intake Oral 0 ml 0 ml IV Total 630 ml 1356 ml 1225 ml 924 ml Tube Feeding 1087 ml 399 ml 505 ml Other 0 ml 60 ml Output Urine Total 1000 ml 1650 ml 1750 ml 1500 ml Stool Total 0 ml 500 ml 100 ml 200 ml Result Diagram: 09/28/16 0356 09/28/16 2124 Imaging Last Impressions Upper Extremity Ultrasound 09/28/16 0000 Signed Impressions: Service Date/Time: Wednesday, September 28, 2016 19:15 - CONCLUSION: 1. Occlusive superficial thrombosis in the left cephalic vein near the antecubital fossa. No deep venous thrombosis. Sumit Bourgeois MD Chest X-Ray 09/28/16 0000 Signed Impressions: Service Date/Time: Wednesday, September 28, 2016 03:32 - CONCLUSION: Unchanged right upper lobe infiltrate. Vishal Beckford Jr., MD Abdomen/Pelvis CT 09/26/16 0000 Signed Impressions: Service Date/Time: Monday, September 26, 2016 15:05 - CONCLUSION: No definite acute CT findings in the abdomen or pelvis. Josafat Meyer MD Renal Ultrasound 08/28/16 0000 Signed Impressions: Service Date/Time: Sunday, August 28, 2016 20:03 - CONCLUSION: Mild increased echotexture of both kidneys. Baldev Vu MD Lumbar Puncture Fluoroscopy 08/17/16 0000 Signed Impressions: Service Date/Time: Wednesday, August 17, 2016 12:26 - CONCLUSION: Uncomplicated fluoroscopically guided lumbar puncture. Vishal Beckford Jr., MD Brain MRI 08/17/16 0000 Signed Impressions: Service Date/Time: Wednesday, August 17, 2016 13:28 - CONCLUSION: Remote long-standing areas of abnormality in the brainstem and middle cerebellar peduncle consistent with remote infarcts or contusion. No acute intracranial abnormality. Chacho Bright MD Abdomen X-Ray 08/17/16 0000 Signed Impressions: Service Date/Time: Wednesday, August 17, 2016 13:02 - CONCLUSION: No evidence of obstruction. No MRI incompatible foreign body is identified. Chacho Bright MD Head CT 08/16/16 0000 Signed Impressions: Service Date/Time: Tuesday, August 16, 2016 09:55 - CONCLUSION: Chronic ischemic changes left frontal lobe possibly from evidence of previous ventriculostomy placement, unchanged. No acute intracranial abnormality. Gen Potter MD Modified Barium Swallow 08/15/16 0000 Signed Impressions: Service Date/Time: Monday, August 15, 2016 00:00 - CONCLUSION: See report above and speech pathology report Chacho Bright MD Objective Remarks General: No acute distress. Heart: Regular rate and rhythm. No murmur. Lungs: Clear to auscultation bilaterally. No wheezes, rales, or rhonchi. Breathing is nonlabored. Abdomen: Soft, nontender, nondistended. Extremities: No lower extremity edema. Psych: Alert, nonverbal. 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 GI bleed, anemia secondary to acute blood loss: Gastroenterology has signed off. H&H stable. Status post transfusion of 3 units PRBCs on 09/26/16. Continue Protonix. 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 Avoid sedatives. Patient has history of frontal lobe CVA. He is nonverbal, but is alert and answers questions by nodding his head. 3. Pneumonia: Continue antibiotics, oxygen, bronchodilators. 4. Sepsis secondary to pneumonia: Continue antibiotics per infectious disease recommendations. 5. Hypotension: Likely secondary to GI bleed versus shock. Improving. 6. Sacral decubitus ulcer: Continue wound care. 7. Sinus tachycardia: On Lopressor 12.5 mg twice a day for rate control. 8. DVT prophylaxis: SCDs. Discharge Planning Transfer to medical/surgical floor when a bed is available. Problem Qualifiers (1) UTI (urinary tract infection): Qualified Code: N39.0 - Urinary tract infection without hematuria, site unspecified Ede Pablo MD Sep 29, 2016 09:21
--- NOTE | 2016-09-29 11:04 | HHI.HCPN ---
Reason for visit a. To assist with evaluation and management of symptoms including: debility , depression b. To assist medical decision maker(s) with: better understanding of current medical conditions; weighing benefits/burdens of medical treatment options; making medical treatment decisions. . Subjective/Interval History Pt on my visit is alert and answering questions appropriately. He nod yes to the question if he was in [facility], he shook his head no when ask if he was in [place]. He nod yes to his name. He nodded yes, and state Patricia Mendoza is and also wants her to be Health Care Surrogate. He nodded yes to having this documented on Health Care Surrogate form for future hospitalizations. Nurse Pennie, and Nurse Karen were present to witness conversation and designation of HCS. Pt denies pain, or any distress. Maintains aggressive goals. Pt care transferred to hospitalists. Family/friend interactions Has left multiple messages and unable to reach /HCS. Advance Directives Living Will: Never completed Health Care Surrogate: Copy in medical record Durable Power of Media Professional: Never completed Advance Directive Specifics Health Care Surrogate(s): No living will or healthcare surrogate designation found in medical records. Patricia Harrell acting as healthcare proxy. Unclear at this time if they are legally . . Documented care wishes: No living well documented. Objective Vital Signs Date Time Temp Pulse Resp B/P Pulse Ox O2 Delivery O2 Flow Rate FiO2 09/29/16 04:00 97.9 90 23 137/72 95 09/29/16 00:00 98.1 92 28 139/86 100 09/29/16 00:00 98.2 92 28 139/86 98 09/28/16 21:25 98 21 09/28/16 20:00 98.0 107 11 131/82 100 09/28/16 20:00 98.5 107 11 131/82 97 09/28/16 18:00 108 09/28/16 16:00 97.9 108 14 112/76 99 09/28/16 16:00 108 09/28/16 14:00 106 09/28/16 12:00 107 09/28/16 12:00 97.8 103 15 140/66 99 Intake & Output 09/29/16 09/29/16 07:00 19:00 Intake Total 3113 ml Output Total 3550 ml Balance -437 ml Intake Oral 0 ml IV Total 2149 ml Tube Feeding 904 ml Other 60 ml Output Urine Total 3250 ml Stool Total 300 ml Physical Exam CONSTITUTIONAL/GENERAL: This is a thin patient in no acute distress, aphasic. Pt follow commands, and nod and shake head appropriately for me today. Less tearful. TUBES/LINES/DRAINS: PIV's, PEG tube. SKIN: No jaundice. Skin temperature appropriate. Not diaphoretic. HEAD: Atraumatic. Normocephalic. EYES: Pupils equal and round and reactive. ENT: Hearing grossly normal. Nose without bleeding or purulent drainage. Throat without visible erythema or exudates. Moderate amount of oral clear secretions. NECK: Trachea midline. Supple, nontender. CARDIOVASCULAR: Regular rate and rhythm without murmurs, gallops, or rubs. No JVD. Peripheral pulses symmetric. RESPIRATORY/CHEST: noted some tachypnea, some rhonchi. GASTROINTESTINAL: Abdomen soft, non-tender, nondistended. PEG tube in place, same cover with dressing. No guarding. Bowel sounds present. GENITOURINARY: Without palpable bladder distension. MUSCULOSKELETAL: Extremities without clubbing, cyanosis, or edema. Muscle wasting noted. NEUROLOGICAL: Awake. Following commands, interactive, and nod yes and no appropriately. Right-sided hemiparesis. Left sided some use of hand and arm. PSYCHIATRIC: Appears restless. . Diagnostic Tests Laboratory Laboratory Tests Test 09/26/16 09/26/16 09/27/16 09/27/16 16:58 22:54 04:49 16:00 Hemoglobin 9.6 GM/DL 9.4 GM/DL 9.7 GM/DL (13.0-17.0) (13.0-17.0) (13.0-17.0) Hematocrit 29.7 % 27.9 % 28.5 % (39.0-51.0) (39.0-51.0) (39.0-51.0) White Blood Count 11.1 TH/MM3 (4.0-11.0) Red Blood Count 3.42 MIL/MM3 (4.50-5.90) Mean Corpuscular Volume 83.4 FL (80.0-100.0) Mean Corpuscular Hemoglobin 28.3 PG (27.0-34.0) Mean Corpuscular Hemoglobin 34.0 % Concent (32.0-36.0) Red Cell Distribution Width 15.5 % (11.6-17.2) Platelet Count 410 TH/MM3 (150-450) Mean Platelet Volume 7.7 FL (7.0-11.0) Neutrophils (%) (Auto) 77.4 % (16.0-70.0) Lymphocytes (%) (Auto) 13.5 % (9.0-44.0) Monocytes (%) (Auto) 7.7 % (0.0-8.0) Eosinophils (%) (Auto) 1.1 % (0.0-4.0) Basophils (%) (Auto) 0.3 % (0.0-2.0) Neutrophils # (Auto) 8.6 TH/MM3 (1.8-7.7) Lymphocytes # (Auto) 1.5 TH/MM3 (1.0-4.8) Monocytes # (Auto) 0.9 TH/MM3 (0-0.9) Eosinophils # (Auto) 0.1 TH/MM3 (0-0.4) Basophils # (Auto) 0.0 TH/MM3 (0-0.2) CBC Comment DIFF FINAL Differential Comment Sodium Level 141 MEQ/L (136-145) Potassium Level 3.3 MEQ/L (3.5-5.1) Chloride Level 104 MEQ/L (98-107) Carbon Dioxide Level 24.4 MEQ/L (21.0-32.0) Anion Gap 13 MEQ/L (5-15) Blood Urea Nitrogen 8 MG/DL (7-18) Creatinine 0.65 MG/DL (0.60-1.30) Estimat Glomerular Filtration 162 ML/MIN Rate (>89) Random Glucose 68 MG/DL (74-106) Calcium Level 9.1 MG/DL (8.5-10.1) Phosphorus Level 3.6 MG/DL (2.5-4.9) Magnesium Level 1.9 MG/DL (1.5-2.5) Vancomycin Level Trough 14.9 MCG/ML (5.0-10.0) Urine Color LIGHT-YELLOW (YELLW/STRAW) Urine Turbidity CLEAR (CLEAR) Urine pH 6.0 (5.0-8.5) Urine Specific Dietrich 1.011 (1.002-1.035) Urine Protein NEG mg/dL (NEG-TRACE) Urine Glucose (UA) NEG mg/dL (NEG) Urine Ketones 40 mg/dL (NEG) Urine Occult Blood TRACE (NEG) Urine Nitrite NEG (NEG) Urine Bilirubin NEG (NEG) Urine Urobilinogen LESS THAN 2.0 MG/DL (LESS THAN 2.0) Urine Leukocyte Esterase SMALL (NEG) Urine RBC 2 /hpf (0-3) Urine WBC 11 /hpf (0-5) Urine Squamous Epithelial <1 /hpf (0-5) Cells Urine Bacteria RARE /hpf (NONE) Urine Hyaline Casts 5 /lpf (RARE) Urine Mucus FEW /lpf (OCC) Microscopic Urinalysis Comment CULTURE INDICATED Test 09/28/16 09/28/16 03:56 21:24 White Blood Count 8.3 TH/MM3 (4.0-11.0) Red Blood Count 3.43 MIL/MM3 (4.50-5.90) Hemoglobin 9.7 GM/DL (13.0-17.0) Hematocrit 28.7 % (39.0-51.0) Mean Corpuscular Volume 83.6 FL (80.0-100.0) Mean Corpuscular Hemoglobin 28.4 PG (27.0-34.0) Mean Corpuscular Hemoglobin 33.9 % Concent (32.0-36.0) Red Cell Distribution Width 15.1 % (11.6-17.2) Platelet Count 497 TH/MM3 (150-450) Mean Platelet Volume 7.6 FL (7.0-11.0) Neutrophils (%) (Auto) 73.7 % (16.0-70.0) Lymphocytes (%) (Auto) 16.2 % (9.0-44.0) Monocytes (%) (Auto) 7.2 % (0.0-8.0) Eosinophils (%) (Auto) 2.8 % (0.0-4.0) Basophils (%) (Auto) 0.1 % (0.0-2.0) Neutrophils # (Auto) 6.1 TH/MM3 (1.8-7.7) Lymphocytes # (Auto) 1.3 TH/MM3 (1.0-4.8) Monocytes # (Auto) 0.6 TH/MM3 (0-0.9) Eosinophils # (Auto) 0.2 TH/MM3 (0-0.4) Basophils # (Auto) 0.0 TH/MM3 (0-0.2) CBC Comment DIFF FINAL Differential Comment Sodium Level 137 MEQ/L (136-145) Potassium Level 3.2 MEQ/L 3.9 MEQ/L (3.5-5.1) (3.5-5.1) Chloride Level 102 MEQ/L (98-107) Carbon Dioxide Level 26.0 MEQ/L (21.0-32.0) Anion Gap 9 MEQ/L (5-15) Blood Urea Nitrogen 6 MG/DL (7-18) Creatinine 0.50 MG/DL (0.60-1.30) Estimat Glomerular Filtration 219 ML/MIN Rate (>89) Random Glucose 88 MG/DL (74-106) Calcium Level 9.0 MG/DL (8.5-10.1) Result Diagram: 09/28/16 0356 09/28/16 2124 Microbiology Microbiology Date/Time Procedure Status Source Growth 09/27/16 16:00 Urine Culture - Final Complete Urine Catheterized Urine NO GROWTH IN 48 HOURS. Procedures * 08/19/16 -PEG tube placement * 08/17/16- lumbar puncture . Assessment and Plan Disease Oriented Problem List: (1) Neurologic type Behcet's syndrome (2) Sepsis (3) Impaired mobility and activities of daily living Symptom Scale: (1) Debility 0-10 Scale: Unable to quantify Comment: Progressive secondary to neuro-Behcet's syndrome, CVA. Now bed bound. (2) Depression 0-10 Scale: Unable to quantify Comment: History of depression, on Celexa at home. Crying outburst. Pertinent Non-Medical Issues Psychosocial: Reported as . Unknown if he has any children. Spiritual: No spiritual affiliations. Legal: No living will or advanced directives found in medical records. Patricia Harrell presented as and has been acting as healthcare proxy. Ethical issues impacting care: No living will or advanced directives found in medical records. Patricia Harrell presented as and has been acting as healthcare proxy. . Important Contacts Patricia Mendoza. [phone]. . Prognosis Mr. Mendoza is a 46-year-old male with a past medical history of neuro-Behcet' s syndrome diagnosed at [facility], left frontal CVA discovered in November 2015, diabetes mellitus type 2, mural thrombus, brain abscess in 2014, meningitis, hypertension and bedbound state. Patient presented to the ED on 08/13/16 via EMS were reports of decreased oral intake for the prior 2-3 days and skin tear to left upper extremity. He was admitted for sepsis. Patient is at high risk for further complications, continue decline and . His diagnosis of neuro- Behcet's syndrome was done at [facility]. Code Status: Full Code Plan * Capacity- pt regained capacity to make health care decision on 09/27/2016. Pt remains to have capacity to make medical decision today on reexamination 09/28/2016. Very clear. Pt has capacity to make medical decisions and remains so on my exam 09/29/2016. * Health Care Decision maker. (Pt evaluated and had capacity to make medical decisions on 09/27/2016) During that time he was asked When asked if Patricia Lebron is his , Pt nodded yes. When asked should he loose capacity, could she make medical decisions for him and act as his HealthCare Surrogate, he got tearful and started to cry, but nodded yes. Nurse Lujan was present to witness conversation. He also gave approval for Patricia to sign consents for medical procedures for him. It was difficult for him to sign due to his neuro/muscular deficits, contractures to sign HCS. (He have some use of his left hand, but in terms of arm not able to really coordinate well). Today 09/29/2016 Pt endorse that Patricia Lebron is his and would be Proxy [place] Statutes Pt also through nodding (witnessed by nurses Pennie and Karen) gave permission for Patricia to make medical decisions for him should he lose capacity and act as Health Care Surrogate, This has been consistent with previous communications with patients. He gave permission to document in the chart and also in an Health Care Surrogate form. * CODE STATUS: He endorses a Full Code. * GOALS OF CARE: He nodded yes to Full Code, and blood transfusion. He remains undecided about trach, although he said he does not want to be on the vent for a prolong period of time. Goals is aggressive and he want to continue with aggressive care. * SYMPTOMS: == debility and just generalized discomfort. No new med rec. appears quite depressed, and tearful, but decline antidepressant at this point in time. * It is noted, that Patricia has been difficult to reach by Palliative care in the past, we have left multiple messages and sent a letter. Case management had been able to reach, her, and also medical team usually able to get consents to medical procedure signed. I am not sure if Patricia has been avoiding palliative care. I have left another voicemail again (09/28/2016) and she has not returned my calls. * Palliative care will continue to follow-up with this patient and family as needed for clarifications of goals of care and support during this difficult time. . Sekou Chen MD Sep 29, 2016 11:04
[2016-09-29] MEDS: SODIUM CHLOR 0.9% 1000 ML INJ 1,000 ML IV SCH ×2 (13:08→19:15)
--- NOTE | 2016-09-29 18:16 | HHI.IDPN ---
Subjective Subjective Remarks no fever urine clx no growth Antibiotics Zosyn IV vancomycin Lines Line sites with no e.o infection Past Medical History reviewed Allergies: Coded Allergies: *MDRO Multi-Drug Resistant Organism (Verified Adverse Reaction, Unknown, ) VRE (buttock)-09/20/16 Uncoded Allergies: ADHESIVE TAPE (Allergy, Severe, 09/21/16) BLISTERS Objective . Vital Signs Date Time Temp Pulse Resp B/P Pulse Ox O2 Delivery O2 Flow Rate FiO2 09/29/16 16:10 97.5 89 22 131/84 98 09/29/16 14:00 93 09/29/16 12:00 98.0 85 15 148/74 99 09/29/16 12:00 87 09/29/16 10:00 87 09/29/16 08:00 93 09/29/16 08:00 98.3 93 17 114/76 99 09/29/16 04:00 97.9 90 23 137/72 95 09/29/16 00:00 98.1 92 28 139/86 100 09/29/16 00:00 98.2 92 28 139/86 98 09/28/16 21:25 98 21 09/28/16 20:00 98.0 107 11 131/82 100 09/28/16 20:00 98.5 107 11 131/82 97 09/28/16 09/28/16 09/29/16 15:00 23:00 07:00 Intake Total 2443 ml 1684 ml 1429 ml Output Total 2150 ml 1850 ml 1700 ml Balance 293 ml -166 ml -271 ml Intake Oral 0 ml IV Total 1356 ml 1225 ml 924 ml Tube Feeding 1087 ml 399 ml 505 ml Other 60 ml Output Urine Total 1650 ml 1750 ml 1500 ml Stool Total 500 ml 100 ml 200 ml . Laboratory Tests Test 09/28/16 03:56 White Blood Count 8.3 TH/MM3 Red Blood Count 3.43 MIL/MM3 Hemoglobin 9.7 GM/DL Hematocrit 28.7 % Mean Corpuscular Volume 83.6 FL Mean Corpuscular Hemoglobin 28.4 PG Mean Corpuscular Hemoglobin 33.9 % Concent Red Cell Distribution Width 15.1 % Platelet Count 497 TH/MM3 Mean Platelet Volume 7.6 FL Neutrophils (%) (Auto) 73.7 % Lymphocytes (%) (Auto) 16.2 % Monocytes (%) (Auto) 7.2 % Eosinophils (%) (Auto) 2.8 % Basophils (%) (Auto) 0.1 % Neutrophils # (Auto) 6.1 TH/MM3 Lymphocytes # (Auto) 1.3 TH/MM3 Monocytes # (Auto) 0.6 TH/MM3 Eosinophils # (Auto) 0.2 TH/MM3 Basophils # (Auto) 0.0 TH/MM3 CBC Comment DIFF FINAL Differential Comment Laboratory Tests Test 09/28/16 09/28/16 03:56 21:24 Sodium Level 137 MEQ/L Potassium Level 3.2 MEQ/L 3.9 MEQ/L Chloride Level 102 MEQ/L Carbon Dioxide Level 26.0 MEQ/L Anion Gap 9 MEQ/L Blood Urea Nitrogen 6 MG/DL Creatinine 0.50 MG/DL Estimat Glomerular Filtration 219 ML/MIN Rate Random Glucose 88 MG/DL Calcium Level 9.0 MG/DL Microbiology Date/Time Procedure Status Source Growth 09/27/16 16:00 Urine Culture - Final Complete Urine Catheterized Urine NO GROWTH IN 48 HOURS. Imaging Last Impressions Upper Extremity Ultrasound 09/28/16 0000 Signed Impressions: Service Date/Time: Wednesday, September 28, 2016 19:15 - CONCLUSION: 1. Occlusive superficial thrombosis in the left cephalic vein near the antecubital fossa. No deep venous thrombosis. Sumit Bourgeois MD Chest X-Ray 09/28/16 0000 Signed Impressions: Service Date/Time: Wednesday, September 28, 2016 03:32 - CONCLUSION: Unchanged right upper lobe infiltrate. Vishal Beckford Jr., MD Abdomen/Pelvis CT 09/26/16 0000 Signed Impressions: Service Date/Time: Monday, September 26, 2016 15:05 - CONCLUSION: No definite acute CT findings in the abdomen or pelvis. Josafat Meyer MD Renal Ultrasound 08/28/16 0000 Signed Impressions: Service Date/Time: Sunday, August 28, 2016 20:03 - CONCLUSION: Mild increased echotexture of both kidneys. Baldev Vu MD Lumbar Puncture Fluoroscopy 08/17/16 0000 Signed Impressions: Service Date/Time: Wednesday, August 17, 2016 12:26 - CONCLUSION: Uncomplicated fluoroscopically guided lumbar puncture. Vishal Beckford Jr., MD Brain MRI 08/17/16 0000 Signed Impressions: Service Date/Time: Wednesday, August 17, 2016 13:28 - CONCLUSION: Remote long-standing areas of abnormality in the brainstem and middle cerebellar peduncle consistent with remote infarcts or contusion. No acute intracranial abnormality. Chacho Bright MD Abdomen X-Ray 08/17/16 0000 Signed Impressions: Service Date/Time: Wednesday, August 17, 2016 13:02 - CONCLUSION: No evidence of obstruction. No MRI incompatible foreign body is identified. Chacho Bright MD Head CT 08/16/16 0000 Signed Impressions: Service Date/Time: Tuesday, August 16, 2016 09:55 - CONCLUSION: Chronic ischemic changes left frontal lobe possibly from evidence of previous ventriculostomy placement, unchanged. No acute intracranial abnormality. Gen Potter MD Modified Barium Swallow 08/15/16 0000 Signed Impressions: Service Date/Time: Monday, August 15, 2016 00:00 - CONCLUSION: See report above and speech pathology report Chacho Bright MD Physical Exam GENERAL: Poorly nourished, chronically ill appearing patient, in no apparent distress. SKIN: Old scars on arms. EYES: Pupils equal round and reactive. Extraocular motions intact. No scleral icterus. No injection or drainage. ENT: moist mucosae CARDIOVASCULAR: HS audible. No murmur. RESPIRATORY:. Breath sounds equal bilaterally. clear to auscultation GASTROINTESTINAL: Abdomen soft, non-tender, minimally distended. : maurice in place with clear yellow urine MUSCULOSKELETAL: Extremities without clubbing, cyanosis, or edema. Wasting and contractures NEUROLOGICAL: Awake and alert. Aphasic. Communicates with yes/no LE weakness but able to flex both limbs minimally. Contractures noted. Psych: unabe to assess IV line sites with no e.o infection. 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 New PNA RUL Plan: Follow blood and urine cultures júnior johnson for now monitor off abx Isolate for VRE colonisation in the wound fu blood clx untill final chk sputum clx repeat CXR Margie Valdivia MD Sep 29, 2016 18:16
[2016-09-30 00:08] VITALS: BP 142/79; PULSE 95; RESP 16; TEMP 97.8; O2SAT 97
[2016-09-30 04:00] VITALS: BP 146/83; PULSE 96; RESP 16; TEMP 97.3; O2SAT 96
[2016-09-30] MEDS: PANTOPRAZOLE INJ 80 MG in SODIUM CHLORIDE 0.9% INJ 100 ML IV SCH (04:57)
[2016-09-30] MEDS: INSULIN NovoLIN REGULAR SUPPLEMENTAL SCALE SQ SCH ×4 (05:00→23:00)
[2016-09-30 08:00] VITALS: BP 142/90; PULSE 101; RESP 18; TEMP 97.6; O2SAT 99
[2016-09-30 08:04] LABS: CREATININE 0.58 MG/DL (0.60-1.30)
[2016-09-30] MEDS: FLUoxetine HCL 10 MG CAP PO SCH (08:53)
[2016-09-30] MEDS: METOPROLOL TARTRATE 25 MG TAB PO SCH ×2 (08:53→21:39)
[2016-09-30] MEDS: COLLAGENASE OINT 30 GM TUBE TOP SCH (08:54)
--- NOTE | 2016-09-30 10:54 | HHI.PR ---
Subjective Remarks Follow up GI bleed, pneumonia. Patient reports no complaints at this time. Denies pain, dyspnea. Objective Vitals Vital Signs Date Time Temp Pulse Resp B/P Pulse Ox O2 Delivery O2 Flow Rate FiO2 09/30/16 08:00 97.6 101 18 142/90 99 09/30/16 04:00 Room Air 09/30/16 04:00 97.3 96 16 146/83 96 09/30/16 00:08 97.8 95 16 142/79 97 09/30/16 00:00 Room Air 09/29/16 20:19 90 09/29/16 20:00 98.0 91 12 147/80 100 09/29/16 20:00 Room Air 09/29/16 19:51 87 09/29/16 16:10 97.5 89 22 131/84 98 09/29/16 14:00 93 09/29/16 12:00 98.0 85 15 148/74 99 09/29/16 12:00 87 I/O 09/29/16 09/29/16 09/29/16 09/30/16 09/30/16 09/30/16 07:00 15:00 23:00 07:00 15:00 23:00 Intake Total 1429 ml 1561 ml 899 ml 1052 ml Output Total 1700 ml 1750 ml 1600 ml 1000 ml Balance -271 ml -189 ml -701 ml 52 ml IV Total 924 ml 1118 ml 261 ml 466 ml Tube Feeding 505 ml 383 ml 518 ml 486 ml Other 60 ml 120 ml 100 ml Output Urine Total 1500 ml 1650 ml 1500 ml 1000 ml Stool Total 200 ml 100 ml 100 ml 0 ml # Voids 1 Result Diagram: 09/28/16 0356 09/30/16 0712 Imaging Last Impressions Upper Extremity Ultrasound 09/28/16 0000 Signed Impressions: Service Date/Time: Wednesday, September 28, 2016 19:15 - CONCLUSION: 1. Occlusive superficial thrombosis in the left cephalic vein near the antecubital fossa. No deep venous thrombosis. Sumit Bourgeois MD Chest X-Ray 09/28/16 0000 Signed Impressions: Service Date/Time: Wednesday, September 28, 2016 03:32 - CONCLUSION: Unchanged right upper lobe infiltrate. Vishal Beckford Jr., MD Abdomen/Pelvis CT 09/26/16 0000 Signed Impressions: Service Date/Time: Monday, September 26, 2016 15:05 - CONCLUSION: No definite acute CT findings in the abdomen or pelvis. Josafat Meyer MD Renal Ultrasound 08/28/16 0000 Signed Impressions: Service Date/Time: Sunday, August 28, 2016 20:03 - CONCLUSION: Mild increased echotexture of both kidneys. Baldev Vu MD Lumbar Puncture Fluoroscopy 08/17/16 0000 Signed Impressions: Service Date/Time: Wednesday, August 17, 2016 12:26 - CONCLUSION: Uncomplicated fluoroscopically guided lumbar puncture. Vishal Beckford Jr., MD Brain MRI 08/17/16 0000 Signed Impressions: Service Date/Time: Wednesday, August 17, 2016 13:28 - CONCLUSION: Remote long-standing areas of abnormality in the brainstem and middle cerebellar peduncle consistent with remote infarcts or contusion. No acute intracranial abnormality. Chacho Bright MD Abdomen X-Ray 08/17/16 0000 Signed Impressions: Service Date/Time: Wednesday, August 17, 2016 13:02 - CONCLUSION: No evidence of obstruction. No MRI incompatible foreign body is identified. Chacho Bright MD Head CT 08/16/16 0000 Signed Impressions: Service Date/Time: Tuesday, August 16, 2016 09:55 - CONCLUSION: Chronic ischemic changes left frontal lobe possibly from evidence of previous ventriculostomy placement, unchanged. No acute intracranial abnormality. Gen Potter MD Modified Barium Swallow 08/15/16 0000 Signed Impressions: Service Date/Time: Monday, August 15, 2016 00:00 - CONCLUSION: See report above and speech pathology report Chacho Bright MD Objective Remarks General: No acute distress. Heart: Regular rate and rhythm. No murmur. Lungs: Clear to auscultation bilaterally. No wheezes, rales, or rhonchi. Breathing is nonlabored. Abdomen: Soft, nontender, nondistended. Extremities: No lower extremity edema. Psych: Alert, nonverbal. 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 GI bleed, anemia secondary to acute blood loss: Gastroenterology has signed off. H&H stable. Status post transfusion of 3 units PRBCs on 09/26/16. Discontinue IV Protonix. Start Prevacid. 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 Avoid sedatives. Patient has history of frontal lobe CVA. He is nonverbal, but is alert and answers questions by nodding his head. 3. Pneumonia: Continue antibiotics, oxygen, bronchodilators. 4. Sepsis secondary to pneumonia: Monitor off antibiotics per infectious disease recommendations. 5. Hypotension: Likely secondary to GI bleed versus shock. Improving. 6. Sacral decubitus ulcer: Continue wound care. 7. Sinus tachycardia: On Lopressor 12.5 mg twice a day for rate control. 8. DVT prophylaxis: SCDs. Problem Qualifiers (1) UTI (urinary tract infection): Qualified Code: N39.0 - Urinary tract infection without hematuria, site unspecified Ede Pablo MD Sep 30, 2016 10:54
[2016-09-30 12:00] VITALS: BP 124/85; PULSE 97; RESP 18; TEMP 98.2; O2SAT 97
[2016-09-30] MEDS: LANSOPRAZOLE SOLUTAB 30 MG TAB NG SCH ×2 (12:30→21:39)
[2016-09-30] MEDS: SODIUM CHLOR 0.9% 1000 ML INJ 1,000 ML IV SCH ×2 (12:30→23:17)
[2016-09-30 16:00] VITALS: BP 141/90; PULSE 100; RESP 18; TEMP 97.9; O2SAT 100
[2016-09-30 20:00] VITALS: BP 145/87; PULSE 96; PULSE 98; RESP 20; TEMP 97.6; O2SAT 97
[2016-10-01] VITALS (7 sets, daily range): BP systolic 122–157; BP diastolic 76–100; PULSE 93–133; RESP 16–22; TEMP 96.7–98.2; O2SAT 92–100
[2016-10-01] MEDS: INSULIN NovoLIN REGULAR SUPPLEMENTAL SCALE SQ SCH ×4 (04:55→23:00)
[2016-10-01] MEDS: METOPROLOL TARTRATE 25 MG TAB PO SCH ×2 (07:44→20:33)
[2016-10-01] MEDS: FLUoxetine HCL 10 MG CAP PO SCH (07:44)
[2016-10-01] MEDS: LANSOPRAZOLE SOLUTAB 30 MG TAB NG SCH ×2 (07:44→20:33)
[2016-10-01] MEDS: COLLAGENASE OINT 30 GM TUBE TOP SCH (07:45)
--- NOTE | 2016-10-01 10:38 | HHI.PR ---
Subjective Remarks Follow up GI bleed, pneumonia. No events reported by nursing. Patient denies pain, dyspnea. Objective Vitals Vital Signs Date Time Temp Pulse Resp B/P Pulse Ox O2 Delivery O2 Flow Rate FiO2 10/01/16 08:00 96.7 96 18 140/100 100 10/01/16 00:07 97.7 93 20 140/87 99 09/30/16 20:00 98 09/30/16 20:00 Room Air 09/30/16 20:00 97.6 96 20 145/87 97 09/30/16 16:00 97.9 100 18 141/90 100 09/30/16 12:00 98.2 97 18 124/85 97 I/O 09/30/16 09/30/16 09/30/16 10/01/16 10/01/16 10/01/16 07:00 15:00 23:00 07:00 15:00 23:00 Intake Total 1052 ml 2028 ml Output Total 1000 ml 550 ml 1275 ml Balance 52 ml -550 ml 753 ml Intake Oral 0 ml IV Total 466 ml 1008 ml Tube Feeding 486 ml 720 ml Other 100 ml 300 ml Output Urine Total 1000 ml 550 ml 1275 ml Stool Total 0 ml Tube Feeding Residual Discard 0 ml # Voids 1 # Bowel Movements 1 Result Diagram: 09/28/16 0356 09/30/16 0712 Imaging Last Impressions Upper Extremity Ultrasound 09/28/16 0000 Signed Impressions: Service Date/Time: Wednesday, September 28, 2016 19:15 - CONCLUSION: 1. Occlusive superficial thrombosis in the left cephalic vein near the antecubital fossa. No deep venous thrombosis. Sumit Bourgeois MD Chest X-Ray 09/28/16 0000 Signed Impressions: Service Date/Time: Wednesday, September 28, 2016 03:32 - CONCLUSION: Unchanged right upper lobe infiltrate. Vishal Beckford Jr., MD Abdomen/Pelvis CT 09/26/16 0000 Signed Impressions: Service Date/Time: Monday, September 26, 2016 15:05 - CONCLUSION: No definite acute CT findings in the abdomen or pelvis. Josafat Meyer MD Renal Ultrasound 08/28/16 0000 Signed Impressions: Service Date/Time: Sunday, August 28, 2016 20:03 - CONCLUSION: Mild increased echotexture of both kidneys. Baldev Vu MD Lumbar Puncture Fluoroscopy 08/17/16 0000 Signed Impressions: Service Date/Time: Wednesday, August 17, 2016 12:26 - CONCLUSION: Uncomplicated fluoroscopically guided lumbar puncture. Vishal Beckford Jr., MD Brain MRI 08/17/16 0000 Signed Impressions: Service Date/Time: Wednesday, August 17, 2016 13:28 - CONCLUSION: Remote long-standing areas of abnormality in the brainstem and middle cerebellar peduncle consistent with remote infarcts or contusion. No acute intracranial abnormality. Chacho Bright MD Abdomen X-Ray 08/17/16 0000 Signed Impressions: Service Date/Time: Wednesday, August 17, 2016 13:02 - CONCLUSION: No evidence of obstruction. No MRI incompatible foreign body is identified. Chacho Bright MD Head CT 08/16/16 0000 Signed Impressions: Service Date/Time: Tuesday, August 16, 2016 09:55 - CONCLUSION: Chronic ischemic changes left frontal lobe possibly from evidence of previous ventriculostomy placement, unchanged. No acute intracranial abnormality. Gen Potter MD Modified Barium Swallow 08/15/16 0000 Signed Impressions: Service Date/Time: Monday, August 15, 2016 00:00 - CONCLUSION: See report above and speech pathology report Chacho Bright MD Objective Remarks General: No acute distress. Heart: Regular rate and rhythm. No murmur. Lungs: Scattered rhonchi. Breathing is nonlabored. Abdomen: Soft, nontender, nondistended. Extremities: No lower extremity edema. Psych: Alert, nonverbal. 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 GI bleed, anemia secondary to acute blood loss: Gastroenterology has signed off. H&H stable. Status post transfusion of 3 units PRBCs on 09/26/16. Continue Prevacid. 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 Avoid sedatives. Patient has history of frontal lobe CVA. He is nonverbal, but is alert and answers questions by nodding his head. 3. Pneumonia: Continue oxygen, bronchodilators. Antibiotics discontinued. 4. Sepsis secondary to pneumonia: Monitor off antibiotics per infectious disease recommendations. 5. Hypertension: Continue metoprolol. Stop IV fluids. 6. Sacral decubitus ulcer: Continue wound care. 7. Sinus tachycardia: On Lopressor 12.5 mg twice a day for rate control. 8. DVT prophylaxis: SCDs. Avoid chemical prophylaxis secondary to GI bleed, anemia. Problem Qualifiers (1) UTI (urinary tract infection): Qualified Code: N39.0 - Urinary tract infection without hematuria, site unspecified Ede Pablo MD Oct 01, 2016 10:38
[2016-10-01 17:21] LABS: AUTOMATED NEUTROPHIL # 16.5 TH/MM3 (1.8-7.7); BASOPHIL # 0.1 TH/MM3 (0-0.2); BASOPHIL % 0.3 % (0.0-2.0); EOSINOPHIL # 0.3 TH/MM3 (0-0.4); EOSINOPHIL % 1.7 % (0.0-4.0); HEMATOCRIT 35.4 % (39.0-51.0); HEMOGLOBIN 11.7 GM/DL (13.0-17.0); LYMPH % 11.2 % (9.0-44.0); LYMPHOCYTE # 2.2 TH/MM3 (1.0-4.8); MEAN CORPUSCULAR HEMOGLOBIN 28.4 PG (27.0-34.0); MEAN PLATELET VOLUME 7.3 FL (7.0-11.0); MONO % 3.3 % (0.0-8.0); MONOCYTE # 0.6 TH/MM3 (0-0.9); NEUT % 83.5 % (16.0-70.0); PLATELET COUNT 857 TH/MM3 (150-450); RED BLOOD COUNT 4.11 MIL/MM3 (4.50-5.90); WHITE BLOOD COUNT 19.7 TH/MM3 (4.0-11.0)
[2016-10-01 17:42] LABS: BICARBONATE 26.4 MEQ/L (21.0-32.0); CREATININE 0.53 MG/DL (0.60-1.30)
[2016-10-01 17:48] LABS: BANDS 4 % (0-6); LYMPHOCYTES 12 % (9-44); MONOCYTES 2 % (0-8); NEUTROPHIL # MANUAL DIFF 16.9 TH/MM3 (1.8-7.7); POLYS (SEG NEUTROPHILS) 82 % (16-70)
[2016-10-02] VITALS (7 sets, daily range): BP systolic 116–122; BP diastolic 62–91; PULSE 107–135; RESP 16–22; TEMP 97–98.2; O2SAT 97–98
[2016-10-02] MEDS: INSULIN NovoLIN REGULAR SUPPLEMENTAL SCALE SQ SCH ×4 (04:49→22:41)
[2016-10-02 07:34] LABS: AUTOMATED NEUTROPHIL # 16.3 TH/MM3 (1.8-7.7); BASOPHIL # 0.1 TH/MM3 (0-0.2); BASOPHIL % 0.4 % (0.0-2.0); EOSINOPHIL # 0.3 TH/MM3 (0-0.4); EOSINOPHIL % 1.5 % (0.0-4.0); HEMATOCRIT 36.7 % (39.0-51.0); HEMOGLOBIN 12.2 GM/DL (13.0-17.0); LYMPH % 13.6 % (9.0-44.0); LYMPHOCYTE # 2.7 TH/MM3 (1.0-4.8); MEAN CELL VOLUME 86.1 FL (80.0-100.0); MEAN CORPUSCULAR HEMOGLOBIN 28.6 PG (27.0-34.0); MEAN CORPUSCULAR HGB CONC 33.2 % (32.0-36.0); MEAN PLATELET VOLUME 7.3 FL (7.0-11.0); MONO % 3.4 % (0.0-8.0); MONOCYTE # 0.7 TH/MM3 (0-0.9); NEUT % 81.1 % (16.0-70.0); PLATELET COUNT 955 TH/MM3 (150-450); RED BLOOD COUNT 4.26 MIL/MM3 (4.50-5.90); RED CELL DISTRIBUTION WIDTH 15.9 % (11.6-17.2); WHITE BLOOD COUNT 20.1 TH/MM3 (4.0-11.0)
[2016-10-02 07:58] LABS: BICARBONATE 26.9 MEQ/L (21.0-32.0); CALCIUM 10.2 MG/DL (8.5-10.1); CREATININE 0.65 MG/DL (0.60-1.30)
[2016-10-02] MEDS: FLUoxetine HCL 10 MG CAP PO SCH (09:00)
[2016-10-02] MEDS: METOPROLOL TARTRATE 25 MG TAB PO SCH ×2 (09:54→20:59)
[2016-10-02] MEDS: COLLAGENASE OINT 30 GM TUBE TOP SCH (09:54)
[2016-10-02] MEDS: LANSOPRAZOLE SOLUTAB 30 MG TAB NG SCH ×2 (09:54→20:59)
--- NOTE | 2016-10-02 11:01 | HHI.PR ---
Subjective Remarks Follow up fever, leukocytosis. Patient is nonverbal, but answers questions by nodding/shaking his head. He indicates that he does not feel well today. Reports pain, although difficult to pinpoint where he is uncomfortable. Objective Vitals Vital Signs Date Time Temp Pulse Resp B/P Pulse Ox O2 Delivery O2 Flow Rate FiO2 10/02/16 08:00 97.0 135 17 117/81 98 10/02/16 07:00 131 10/02/16 07:00 Room Air 10/02/16 04:00 98.2 107 20 117/62 97 10/02/16 00:00 98.0 115 22 119/91 97 10/01/16 20:00 Room Air 10/01/16 20:00 98.2 132 22 157/86 92 10/01/16 20:00 133 10/01/16 18:13 100 16 10/01/16 16:00 98.2 117 22 122/76 96 10/01/16 12:00 97.2 104 22 128/83 100 10/01/16 11:46 107 I/O 10/01/16 10/01/16 10/01/16 10/02/16 10/02/16 10/02/16 07:00 15:00 23:00 07:00 15:00 23:00 Intake Total 2028 ml 856 ml Output Total 1275 ml 1000 ml 300 ml 300 ml Balance 753 ml -1000 ml -300 ml 556 ml Intake Oral 0 ml IV Total 1008 ml Tube Feeding 720 ml 856 ml Other 300 ml Output Urine Total 1275 ml 1000 ml 300 ml 300 ml # Voids 1 # Bowel Movements 1 Result Diagram: 10/02/16 0700 10/02/16 07 Imaging Last Impressions Upper Extremity Ultrasound 09/28/16 0000 Signed Impressions: Service Date/Time: Wednesday, September 28, 2016 19:15 - CONCLUSION: 1. Occlusive superficial thrombosis in the left cephalic vein near the antecubital fossa. No deep venous thrombosis. Sumit Bourgeois MD Chest X-Ray 09/28/16 0000 Signed Impressions: Service Date/Time: Wednesday, September 28, 2016 03:32 - CONCLUSION: Unchanged right upper lobe infiltrate. Vishal Beckford Jr., MD Abdomen/Pelvis CT 09/26/16 0000 Signed Impressions: Service Date/Time: Monday, September 26, 2016 15:05 - CONCLUSION: No definite acute CT findings in the abdomen or pelvis. Josafat Meyer MD Renal Ultrasound 08/28/16 0000 Signed Impressions: Service Date/Time: Sunday, August 28, 2016 20:03 - CONCLUSION: Mild increased echotexture of both kidneys. Baldev Vu MD Lumbar Puncture Fluoroscopy 08/17/16 0000 Signed Impressions: Service Date/Time: Wednesday, August 17, 2016 12:26 - CONCLUSION: Uncomplicated fluoroscopically guided lumbar puncture. Vishal Beckford Jr., MD Brain MRI 08/17/16 0000 Signed Impressions: Service Date/Time: Wednesday, August 17, 2016 13:28 - CONCLUSION: Remote long-standing areas of abnormality in the brainstem and middle cerebellar peduncle consistent with remote infarcts or contusion. No acute intracranial abnormality. Chacho Bright MD Abdomen X-Ray 08/17/16 0000 Signed Impressions: Service Date/Time: Wednesday, August 17, 2016 13:02 - CONCLUSION: No evidence of obstruction. No MRI incompatible foreign body is identified. Chacho Bright MD Head CT 08/16/16 0000 Signed Impressions: Service Date/Time: Tuesday, August 16, 2016 09:55 - CONCLUSION: Chronic ischemic changes left frontal lobe possibly from evidence of previous ventriculostomy placement, unchanged. No acute intracranial abnormality. Gen Potter MD Modified Barium Swallow 08/15/16 0000 Signed Impressions: Service Date/Time: Monday, August 15, 2016 00:00 - CONCLUSION: See report above and speech pathology report Chacho Bright MD Objective Remarks General: No acute distress. Heart: Regular rate and rhythm. No murmur. Lungs: Scattered rhonchi. Breathing is nonlabored. Abdomen: Soft, nontender, nondistended. Extremities: No lower extremity edema. Psych: Alert, nonverbal. 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 GI bleed, anemia secondary to acute blood loss: Gastroenterology has signed off. H&H stable. Status post transfusion of 3 units PRBCs on 09/26/16. Continue Prevacid. 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 Avoid sedatives. Patient has history of frontal lobe CVA. He is nonverbal, but is alert and answers questions by nodding his head. 3. Pneumonia: Continue oxygen, bronchodilators. Antibiotics discontinued by ID. WBCs increasing. Repeat CXR. Restart Vancomycin, Zosyn. 4. Sepsis secondary to pneumonia: Monitor off antibiotics per infectious disease recommendations. 5. Hypertension: Continue metoprolol. Stop IV fluids. 6. Sacral decubitus ulcer: Continue wound care. 7. Sinus tachycardia: On Lopressor 12.5 mg twice a day for rate control. Rate may be increased due to pain. 8. DVT prophylaxis: SCDs. Avoid chemical prophylaxis secondary to GI bleed, anemia. Problem Qualifiers (1) UTI (urinary tract infection): Qualified Code: N39.0 - Urinary tract infection without hematuria, site unspecified Ede Pablo MD Oct 02, 2016 11:01
--- NOTE | 2016-10-02 11:35 | RADRPT ---
EXAM DATE/TIME: 10/02/2016 11:17 [facility] COMPARISON: CT ABDOMEN & PELVIS W CONTRAST, September 26, 2016, 15:05. CHEST SINGLE AP, September 25, 2016, 11:45. CHES T SINGLE AP, September 28, 2016, 3:32. INDICATIONS : Evaluate pneumonia MEDICAL HISTORY : Stroke. Cardiovascular disease. SURGICAL HISTORY : None. ENCOUNTER: Subsequent ACUITY: 4 - 6 days PAIN SCORE: Non-responsive. LOCATION: chest FINDINGS: Crosstable semiupright portable view of the chest is performed. There is no evidence of pneumothorax. There is right apical pleural thickening. There is hazy increased air space density involving the ri ght hemithorax as compared to the left with overall volume loss of the right hemithorax. This is cons istent with atelectasis versus pneumonia this appearance is essentially unchanged from the prior exam s. Heart size remains normal. Osseous structures are unremarkable. CONCLUSION: No evidence of pneumothorax. Stable hazy airspace density involving the right hemithorax, atelectasis versus infectious process. Appearance is unchanged from prior exams. Ronna Lucia MD on October 02, 2016 at 11:31 Board Certified Radiologist. This report was verified electronically.
[2016-10-02] MEDS: VANCOMYCIN INJ 1,250 MG in SODIUM CHLOR 0.9% 250 ML INJ 250 ML IV SCH (13:27)
[2016-10-02] MEDS: ACETAMINOPHEN/HYDROcodone 325 MG/5 MG TAB PEG PRN ×2 (13:27→20:59)
--- NOTE | 2016-10-02 13:53 | HHI.IDPN ---
Subjective Subjective Remarks is a 46 AAM with NeuroBehcet's disease, difficult placement and not safe discharge so continues to reside at [facility]. Overnight events reviewed. Asked to see patient by for Sepsis alert (fever, WBC and tachycardia) Awake Nods no to pain. Has maurice no dates entered for insertion could not be traced. Elizabeth RN to change maurice and place date in EMR. 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 Vital Signs Date Time Temp Pulse Resp B/P Pulse Ox O2 Delivery O2 Flow Rate FiO2 10/02/16 12:00 97.1 119 16 121/84 97 10/02/16 08:00 97.0 135 17 117/81 98 10/02/16 07:00 131 10/02/16 07:00 Room Air 10/02/16 04:00 98.2 107 20 117/62 97 10/02/16 00:00 98.0 115 22 119/91 97 10/01/16 20:00 Room Air 10/01/16 20:00 98.2 132 22 157/86 92 10/01/16 20:00 133 10/01/16 18:13 100 16 10/01/16 16:00 98.2 117 22 122/76 96 10/01/16 10/01/16 10/02/16 15:00 23:00 07:00 Intake Total 856 ml Output Total 1000 ml 300 ml 300 ml Balance -1000 ml -300 ml 556 ml Tube Feeding 856 ml Output Urine Total 1000 ml 300 ml 300 ml # Voids 1 . Laboratory Tests Test 10/01/16 10/02/16 15:37 07:00 White Blood Count 19.7 TH/MM3 20.1 TH/MM3 Red Blood Count 4.11 MIL/MM3 4.26 MIL/MM3 Hemoglobin 11.7 GM/DL 12.2 GM/DL Hematocrit 35.4 % 36.7 % Mean Corpuscular Volume 86.0 FL 86.1 FL Mean Corpuscular Hemoglobin 28.4 PG 28.6 PG Mean Corpuscular Hemoglobin 33.0 % 33.2 % Concent Red Cell Distribution Width 16.0 % 15.9 % Platelet Count 857 TH/MM3 955 TH/MM3 Mean Platelet Volume 7.3 FL 7.3 FL Neutrophils (%) (Auto) 83.5 % 81.1 % Lymphocytes (%) (Auto) 11.2 % 13.6 % Monocytes (%) (Auto) 3.3 % 3.4 % Eosinophils (%) (Auto) 1.7 % 1.5 % Basophils (%) (Auto) 0.3 % 0.4 % Neutrophils # (Auto) 16.5 TH/MM3 16.3 TH/MM3 Lymphocytes # (Auto) 2.2 TH/MM3 2.7 TH/MM3 Monocytes # (Auto) 0.6 TH/MM3 0.7 TH/MM3 Eosinophils # (Auto) 0.3 TH/MM3 0.3 TH/MM3 Basophils # (Auto) 0.1 TH/MM3 0.1 TH/MM3 CBC Comment AUTO DIFF AUTO DIFF Differential Total Cells 100 Counted Neutrophils % (Manual) 82 % Band Neutrophils % 4 % Lymphocytes % 12 % Monocytes % 2 % Neutrophils # (Manual) 16.9 TH/MM3 Differential Comment FINAL DIFF AUTO DIFF MANUAL CONFIRMED Platelet Estimate HIGH HIGH Platelet Morphology Comment NORMAL NORMAL Laboratory Tests Test 10/01/16 10/01/16 10/02/16 15:37 18:40 07:00 Sodium Level 136 MEQ/L 134 MEQ/L Potassium Level 4.1 MEQ/L 4.4 MEQ/L Chloride Level 101 MEQ/L 97 MEQ/L Carbon Dioxide Level 26.4 MEQ/L 26.9 MEQ/L Anion Gap 9 MEQ/L 10 MEQ/L Blood Urea Nitrogen 8 MG/DL 13 MG/DL Creatinine 0.53 MG/DL 0.65 MG/DL Estimat Glomerular Filtration 205 ML/MIN 162 ML/MIN Rate Random Glucose 113 MG/DL 141 MG/DL Calcium Level 10.0 MG/DL 10.2 MG/DL Lactic Acid Level 1.3 mmol/L Microbiology Date/Time Procedure Status Source Growth 10/02/16 12:48 Aerobic Blood Culture Received Blood Peripheral Pending 10/02/16 12:48 Anaerobic Blood Culture Received Blood Peripheral Pending 10/02/16 12:56 Aerobic Blood Culture Received Blood Peripheral Pending 10/02/16 12:56 Anaerobic Blood Culture Received Blood Peripheral Pending Imaging Last Impressions Upper Extremity Ultrasound 09/28/16 Signed Impressions: Service Date/Time: Wednesday, September 28, 2016 19:15 - CONCLUSION: 1. Occlusive superficial thrombosis in the left cephalic vein near the antecubital fossa. No deep venous thrombosis. Sumit Bourgeois MD Chest X-Ray 09/28/16 Signed Impressions: Service Date/Time: Wednesday, September 28, 2016 03:32 - CONCLUSION: Unchanged right upper lobe infiltrate. Vishal Beckford Jr., MD Abdomen/Pelvis CT 09/26/16 Signed Impressions: Service Date/Time: Monday, September 26, 2016 15:05 - CONCLUSION: No definite acute CT findings in the abdomen or pelvis. Josafat Meyer MD Renal Ultrasound 08/28/16 Signed Impressions: Service Date/Time: Sunday, August 28, 2016 20:03 - CONCLUSION: Mild increased echotexture of both kidneys. Baldev Vu MD Lumbar Puncture Fluoroscopy 08/17/16 Signed Impressions: Service Date/Time: Wednesday, August 17, 2016 12:26 - CONCLUSION: Uncomplicated fluoroscopically guided lumbar puncture. Vishal Beckford Jr., MD Brain MRI 08/17/16 0000 Signed Impressions: Service Date/Time: Wednesday, August 17, 2016 13:28 - CONCLUSION: Remote long-standing areas of abnormality in the brainstem and middle cerebellar peduncle consistent with remote infarcts or contusion. No acute intracranial abnormality. Chacho Bright MD Abdomen X-Ray 08/17/16 0000 Signed Impressions: Service Date/Time: Wednesday, August 17, 2016 13:02 - CONCLUSION: No evidence of obstruction. No MRI incompatible foreign body is identified. Chacho Bright MD Head CT 08/16/16 0000 Signed Impressions: Service Date/Time: Tuesday, August 16, 2016 09:55 - CONCLUSION: Chronic ischemic changes left frontal lobe possibly from evidence of previous ventriculostomy placement, unchanged. No acute intracranial abnormality. Gen Potter MD Modified Barium Swallow 08/15/16 0000 Signed Impressions: Service Date/Time: Monday, August 15, 2016 00:00 - CONCLUSION: See report above and speech pathology report Chacho Bright MD Physical Exam GENERAL: Poorly nourished, chronically ill appearing patient, in no apparent distress. SKIN: Old scars on arms. EYES: Pupils equal round and reactive. Extraocular motions intact. No scleral icterus. No injection or drainage. ENT: moist mucosae CARDIOVASCULAR: HS audible. No murmur. RESPIRATORY:. Breath sounds equal bilaterally. clear to auscultation GASTROINTESTINAL: Abdomen soft, non-tender, minimally distended. : maurice in place with clear yellow urine MUSCULOSKELETAL: Extremities without clubbing, cyanosis, or edema. Wasting and contractures NEUROLOGICAL: Awake and alert. Aphasic. Communicates with yes/no LE weakness but able to flex both limbs minimally. Contractures noted. Psych: unable to assess IV line sites with no e.o infection. Assessment & Plan Remarks Diagnosis: (1) Neurologic type Behcet's syndrome (2) Fever, and Leucocytosis: ? microaspiration, ? 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 New PNA RUL Plan: Follow blood cultures Check UA/urine cultures. Change maurice. Continue Zosyn IV Continue Vanco IV (target 15-20) CXR reviewed ? microaspiration. Isolate for VRE colonization in the wound. Berna Reyes MD Oct 02, 2016 13:53
[2016-10-02] MEDS: PIPERACIL-TAZO 3.375 GM PREMIX 50 ML IV SCH ×2 (14:44→20:59)
[2016-10-03] VITALS (8 sets, daily range): BP systolic 109–124; BP diastolic 74–115; PULSE 109–135; RESP 16–24; TEMP 98.1–98.5; O2SAT 96–98
[2016-10-03] MEDS: VANCOMYCIN INJ 1,250 MG in SODIUM CHLOR 0.9% 250 ML INJ 250 ML IV SCH ×2 (00:57→12:30)
[2016-10-03] MEDS: ACETAMINOPHEN/HYDROcodone 325 MG/5 MG TAB PEG PRN ×5 (02:10→23:18)
[2016-10-03] MEDS: PIPERACIL-TAZO 3.375 GM PREMIX 50 ML IV SCH ×4 (02:10→23:17)
[2016-10-03] MEDS: INSULIN NovoLIN REGULAR SUPPLEMENTAL SCALE SQ SCH ×4 (05:00→23:00)
[2016-10-03] MEDS: LANSOPRAZOLE SOLUTAB 30 MG TAB NG SCH ×2 (07:34→23:15)
[2016-10-03] MEDS: FLUoxetine HCL 10 MG CAP PO SCH (07:34)
[2016-10-03] MEDS: METOPROLOL TARTRATE 25 MG TAB PO SCH ×2 (07:34→23:28)
[2016-10-03] MEDS: COLLAGENASE OINT 30 GM TUBE TOP SCH (07:35)
--- NOTE | 2016-10-03 11:08 | HHI.PR ---
Subjective Remarks Follow up sepsis, tachycardia, fever. Patient still indicating that he is uncomfortable. Pain seems to be in his leg. Objective Vitals Vital Signs Date Time Temp Pulse Resp B/P Pulse Ox O2 Delivery O2 Flow Rate FiO2 10/03/16 08:39 16 10/03/16 08:00 98.1 114 19 115/78 96 10/03/16 08:00 98.1 114 19 /115 96 10/03/16 04:00 98.3 120 24 110/83 98 10/03/16 00:00 98.3 109 22 115/78 96 10/02/16 20:00 Room Air 10/02/16 20:00 132 10/02/16 20:00 98.0 134 22 116/82 98 10/02/16 16:00 97.8 125 18 122/82 98 10/02/16 12:00 97.1 119 16 121/84 97 I/O 10/02/16 10/02/16 10/02/16 10/03/16 10/03/16 10/03/16 07:00 15:00 23:00 07:00 15:00 23:00 Intake Total 856 ml 1000 ml Output Total 300 ml 1600 ml 225 ml Balance 556 ml -1600 ml 775 ml Intake Oral 0 ml Tube Feeding 856 ml 1000 ml Output Urine Total 300 ml 750 ml 225 ml Stool Total 850 ml # Bowel Movements 0 Result Diagram: 10/02/16 0700 10/02/16 0700 Imaging Last Impressions Chest X-Ray 10/02/16 0000 Signed Impressions: Service Date/Time: Sunday, October 02, 2016 11:17 - CONCLUSION: No evidence of pneumothorax. Stable hazy airspace density involving the right hemithorax, atelectasis versus infectious process. Appearance is unchanged from prior exams. Ronna Lucia MD Upper Extremity Ultrasound 09/28/16 0000 Signed Impressions: Service Date/Time: Wednesday, September 28, 2016 19:15 - CONCLUSION: 1. Occlusive superficial thrombosis in the left cephalic vein near the antecubital fossa. No deep venous thrombosis. Sumit Bourgeois MD Abdomen/Pelvis CT 09/26/16 0000 Signed Impressions: Service Date/Time: Monday, September 26, 2016 15:05 - CONCLUSION: No definite acute CT findings in the abdomen or pelvis. Josafat Meyer MD Renal Ultrasound 08/28/16 0000 Signed Impressions: Service Date/Time: Sunday, August 28, 2016 20:03 - CONCLUSION: Mild increased echotexture of both kidneys. Baldev Vu MD Lumbar Puncture Fluoroscopy 08/17/16 0000 Signed Impressions: Service Date/Time: Wednesday, August 17, 2016 12:26 - CONCLUSION: Uncomplicated fluoroscopically guided lumbar puncture. Vishal Beckford Jr., MD Brain MRI 08/17/16 0000 Signed Impressions: Service Date/Time: Wednesday, August 17, 2016 13:28 - CONCLUSION: Remote long-standing areas of abnormality in the brainstem and middle cerebellar peduncle consistent with remote infarcts or contusion. No acute intracranial abnormality. Chacho Bright MD Abdomen X-Ray 08/17/16 0000 Signed Impressions: Service Date/Time: Wednesday, August 17, 2016 13:02 - CONCLUSION: No evidence of obstruction. No MRI incompatible foreign body is identified. Chacho Bright MD Head CT 08/16/16 0000 Signed Impressions: Service Date/Time: Tuesday, August 16, 2016 09:55 - CONCLUSION: Chronic ischemic changes left frontal lobe possibly from evidence of previous ventriculostomy placement, unchanged. No acute intracranial abnormality. Gen Potter MD Modified Barium Swallow 08/15/16 0000 Signed Impressions: Service Date/Time: Monday, August 15, 2016 00:00 - CONCLUSION: See report above and speech pathology report Chacho Bright MD Objective Remarks General: No acute distress. Heart: Regular rate and rhythm. No murmur. Lungs: Scattered rhonchi. Breathing is nonlabored. Abdomen: Soft, nontender, nondistended. Extremities: No lower extremity edema. Psych: Alert, nonverbal. 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 GI bleed, anemia secondary to acute blood loss: Gastroenterology has signed off. H&H stable. Status post transfusion of 3 units PRBCs on 09/26/16. Continue Prevacid. 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 Avoid sedatives. Patient has history of frontal lobe CVA. He is nonverbal, but is alert and answers questions by nodding his head. 3. Pneumonia: Continue oxygen, bronchodilators. Antibiotics discontinued by ID. WBCs increasing. Repeat CXR. Continue Vancomycin, Zosyn. Labs pending today. 4. Sepsis secondary to pneumonia, ?UTI: Antibiotics restarted yesterday. Appreciate infectious disease recommendations. Blood cultures are pending. 5. Hypertension: Continue metoprolol. Stop IV fluids. 6. Sacral decubitus ulcer: Continue wound care. 7. Sinus tachycardia: On Lopressor 12.5 mg twice a day for rate control. Rate may be increased due to pain. 8. DVT prophylaxis: SCDs. Avoid chemical prophylaxis secondary to GI bleed, anemia. Problem Qualifiers (1) UTI (urinary tract infection): Qualified Code: N39.0 - Urinary tract infection without hematuria, site unspecified Ede Pablo MD Oct 03, 2016 11:08
[2016-10-03 12:57] LABS: AUTOMATED NEUTROPHIL # 14.6 TH/MM3 (1.8-7.7); BASOPHIL # 0.1 TH/MM3 (0-0.2); BASOPHIL % 0.5 % (0.0-2.0); EOSINOPHIL # 0.2 TH/MM3 (0-0.4); EOSINOPHIL % 1.1 % (0.0-4.0); HEMATOCRIT 36.8 % (39.0-51.0); HEMOGLOBIN 12.2 GM/DL (13.0-17.0); LYMPH % 11.7 % (9.0-44.0); LYMPHOCYTE # 2.1 TH/MM3 (1.0-4.8); MEAN CELL VOLUME 86.4 FL (80.0-100.0); MEAN CORPUSCULAR HEMOGLOBIN 28.7 PG (27.0-34.0); MEAN CORPUSCULAR HGB CONC 33.2 % (32.0-36.0); MEAN PLATELET VOLUME 7.5 FL (7.0-11.0); MONO % 4.8 % (0.0-8.0); MONOCYTE # 0.8 TH/MM3 (0-0.9); NEUT % 81.9 % (16.0-70.0); PLATELET COUNT 944 TH/MM3 (150-450); RED BLOOD COUNT 4.27 MIL/MM3 (4.50-5.90); RED CELL DISTRIBUTION WIDTH 16.3 % (11.6-17.2); WHITE BLOOD COUNT 17.8 TH/MM3 (4.0-11.0)
[2016-10-03 13:20] LABS: BICARBONATE 28.1 MEQ/L (21.0-32.0); CALCIUM 10.2 MG/DL (8.5-10.1); CREATININE 0.82 MG/DL (0.60-1.30)
[2016-10-03 13:38] LABS: BANDS 3 % (0-6); LYMPHOCYTES 10 % (9-44); MONOCYTES 1 % (0-8); MYELOCYTES 2 % (0-0); NEUTROPHIL # MANUAL DIFF 15.5 TH/MM3 (1.8-7.7); POLYS (SEG NEUTROPHILS) 82 % (16-70)
--- NOTE | 2016-10-03 14:12 | HHI.IDPN ---
Subjective Subjective Remarks is a 46 AAM with NeuroBehcet's disease, difficult placement and not safe discharge so continues to reside at [facility]. Overnight events reviewed. Asked to see patient by for Sepsis alert (fever, WBC and tachycardia) Awake Nods no to pain. Has maurice no dates entered for insertion could not be traced. Elizabeth RN to change maurice and place date in EMR. 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 Vital Signs Date Time Temp Pulse Resp B/P Pulse Ox O2 Delivery O2 Flow Rate FiO2 10/03/16 12:40 16 10/03/16 12:33 98.5 135 20 117/85 97 10/03/16 08:00 98.1 114 19 115/78 96 10/03/16 08:00 98.1 114 19 /115 96 10/03/16 04:00 98.3 120 24 110/83 98 10/03/16 00:00 98.3 109 22 115/78 96 10/02/16 20:00 Room Air 10/02/16 20:00 132 10/02/16 20:00 98.0 134 22 116/82 98 10/02/16 16:00 97.8 125 18 122/82 98 10/02/16 10/02/16 10/03/16 15:00 23:00 07:00 Intake Total 1000 ml Output Total 1600 ml 225 ml Balance -1600 ml 775 ml Intake Oral 0 ml Tube Feeding 1000 ml Output Urine Total 750 ml 225 ml Stool Total 850 ml # Bowel Movements 0 . Laboratory Tests Test 10/01/16 10/02/16 10/03/16 15:37 07:00 12:30 White Blood Count 19.7 TH/MM3 20.1 TH/MM3 17.8 TH/MM3 Red Blood Count 4.11 MIL/MM3 4.26 MIL/MM3 4.27 MIL/MM3 Hemoglobin 11.7 GM/DL 12.2 GM/DL 12.2 GM/DL Hematocrit 35.4 % 36.7 % 36.8 % Mean Corpuscular Volume 86.0 FL 86.1 FL 86.4 FL Mean Corpuscular Hemoglobin 28.4 PG 28.6 PG 28.7 PG Mean Corpuscular Hemoglobin 33.0 % 33.2 % 33.2 % Concent Red Cell Distribution Width 16.0 % 15.9 % 16.3 % Platelet Count 857 TH/MM3 955 TH/MM3 944 TH/MM3 Mean Platelet Volume 7.3 FL 7.3 FL 7.5 FL Neutrophils (%) (Auto) 83.5 % 81.1 % 81.9 % Lymphocytes (%) (Auto) 11.2 % 13.6 % 11.7 % Monocytes (%) (Auto) 3.3 % 3.4 % 4.8 % Eosinophils (%) (Auto) 1.7 % 1.5 % 1.1 % Basophils (%) (Auto) 0.3 % 0.4 % 0.5 % Neutrophils # (Auto) 16.5 TH/MM3 16.3 TH/MM3 14.6 TH/MM3 Lymphocytes # (Auto) 2.2 TH/MM3 2.7 TH/MM3 2.1 TH/MM3 Monocytes # (Auto) 0.6 TH/MM3 0.7 TH/MM3 0.8 TH/MM3 Eosinophils # (Auto) 0.3 TH/MM3 0.3 TH/MM3 0.2 TH/MM3 Basophils # (Auto) 0.1 TH/MM3 0.1 TH/MM3 0.1 TH/MM3 CBC Comment AUTO DIFF AUTO DIFF AUTO DIFF Differential Total Cells 100 100 Counted Neutrophils % (Manual) 82 % 82 % Band Neutrophils % 4 % 3 % Lymphocytes % 12 % 10 % Monocytes % 2 % 1 % Neutrophils # (Manual) 16.9 TH/MM3 15.5 TH/MM3 Differential Comment FINAL DIFF AUTO DIFF FINAL DIFF MANUAL CONFIRMED MANUAL Platelet Estimate HIGH HIGH HIGH Platelet Morphology Comment NORMAL NORMAL NORMAL Eosinophils % 2 % Myelocytes 2 % Red Cell Morphology Comment NORMAL Laboratory Tests Test 10/01/16 10/01/16 10/02/16 10/03/16 15:37 18:40 07:00 12:30 Sodium Level 136 MEQ/L 134 MEQ/L 136 MEQ/L Potassium Level 4.1 MEQ/L 4.4 MEQ/L 4.5 MEQ/L Chloride Level 101 MEQ/L 97 MEQ/L 98 MEQ/L Carbon Dioxide Level 26.4 MEQ/L 26.9 MEQ/L 28.1 MEQ/L Anion Gap 9 MEQ/L 10 MEQ/L 10 MEQ/L Blood Urea Nitrogen 8 MG/DL 13 MG/DL 22 MG/DL Creatinine 0.53 MG/DL 0.65 MG/DL 0.82 MG/DL Estimat Glomerular Filtration 205 ML/MIN 162 ML/MIN 124 ML/MIN Rate Random Glucose 113 MG/DL 141 MG/DL 130 MG/DL Calcium Level 10.0 MG/DL 10.2 MG/DL 10.2 MG/DL Lactic Acid Level 1.3 mmol/L Microbiology Date/Time Procedure Status Source Growth 10/02/16 12:48 Aerobic Blood Culture - Preliminary Resulted Blood Peripheral NO GROWTH IN 1 DAY 10/02/16 12:48 Anaerobic Blood Culture - Preliminary Resulted Blood Peripheral NO GROWTH IN 1 DAY 10/02/16 12:56 Aerobic Blood Culture - Preliminary Resulted Blood Peripheral NO GROWTH IN 1 DAY 10/02/16 12:56 Anaerobic Blood Culture - Preliminary Resulted Blood Peripheral NO GROWTH IN 1 DAY Imaging Last Impressions Upper Extremity Ultrasound 09/28/16 0000 Signed Impressions: Service Date/Time: Wednesday, September 28, 2016 19:15 - CONCLUSION: 1. Occlusive superficial thrombosis in the left cephalic vein near the antecubital fossa. No deep venous thrombosis. Sumit Bourgeois MD Chest X-Ray 09/28/16 0000 Signed Impressions: Service Date/Time: Wednesday, September 28, 2016 03:32 - CONCLUSION: Unchanged right upper lobe infiltrate. Vishal Beckford Jr., MD Abdomen/Pelvis CT 09/26/16 0000 Signed Impressions: Service Date/Time: Monday, September 26, 2016 15:05 - CONCLUSION: No definite acute CT findings in the abdomen or pelvis. Josafat Meyer MD Renal Ultrasound 08/28/16 0000 Signed Impressions: Service Date/Time: Sunday, August 28, 2016 20:03 - CONCLUSION: Mild increased echotexture of both kidneys. Baldev Vu MD Lumbar Puncture Fluoroscopy 08/17/16 0000 Signed Impressions: Service Date/Time: Wednesday, August 17, 2016 12:26 - CONCLUSION: Uncomplicated fluoroscopically guided lumbar puncture. Vishal Beckford Jr., MD Brain MRI 08/17/16 0000 Signed Impressions: Service Date/Time: Wednesday, August 17, 2016 13:28 - CONCLUSION: Remote long-standing areas of abnormality in the brainstem and middle cerebellar peduncle consistent with remote infarcts or contusion. No acute intracranial abnormality. Chacho Bright MD Abdomen X-Ray 08/17/16 0000 Signed Impressions: Service Date/Time: Wednesday, August 17, 2016 13:02 - CONCLUSION: No evidence of obstruction. No MRI incompatible foreign body is identified. Chacho Bright MD Head CT 08/16/16 0000 Signed Impressions: Service Date/Time: Tuesday, August 16, 2016 09:55 - CONCLUSION: Chronic ischemic changes left frontal lobe possibly from evidence of previous ventriculostomy placement, unchanged. No acute intracranial abnormality. Gen Potter MD Modified Barium Swallow 08/15/16 0000 Signed Impressions: Service Date/Time: Monday, August 15, 2016 00:00 - CONCLUSION: See report above and speech pathology report Chacho Bright MD Physical Exam GENERAL: Poorly nourished, chronically ill appearing patient, in no apparent distress. SKIN: Old scars on arms. EYES: Pupils equal round and reactive. Extraocular motions intact. No scleral icterus. No injection or drainage. ENT: moist mucosae CARDIOVASCULAR: HS audible. No murmur. RESPIRATORY:. Breath sounds equal bilaterally. clear to auscultation GASTROINTESTINAL: Abdomen soft, non-tender, minimally distended. : maurice in place with clear yellow urine MUSCULOSKELETAL: Extremities without clubbing, cyanosis, or edema. Wasting and contractures NEUROLOGICAL: Awake and alert. Aphasic. Communicates with yes/no LE weakness but able to flex both limbs minimally. Contractures noted. Psych: unable to assess IV line sites with no e.o infection. Assessment & Plan Remarks Diagnosis: (1) Neurologic type Behcet's syndrome (2) Fever, and Leucocytosis: ? microaspiration, ? 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 New PNA RUL Plan: Follow blood cultures Follow UA/urine cultures. Change maurice. Continue Zosyn IV DC Vanco IV CXR reviewed ? microaspiration. Isolate for VRE colonization in the wound. d/w . Sacral wound examined: stool in the sacral wound. Berna Reyes MD Oct 03, 2016 14:12
[2016-10-04] VITALS (9 sets, daily range): BP systolic 92–128; BP diastolic 63–81; PULSE 115–142; RESP 14–24; TEMP 98.1–101.5; O2SAT 97–100
[2016-10-04] MEDS: PIPERACIL-TAZO 3.375 GM PREMIX 50 ML IV SCH ×4 (03:16→20:51)
[2016-10-04] MEDS: ACETAMINOPHEN/HYDROcodone 325 MG/5 MG TAB PEG PRN ×2 (03:16→20:50)
[2016-10-04] MEDS: INSULIN NovoLIN REGULAR SUPPLEMENTAL SCALE SQ SCH ×4 (05:00→23:00)
[2016-10-04] MEDS: METOPROLOL TARTRATE 25 MG TAB PO SCH ×2 (09:37→20:50)
[2016-10-04] MEDS: COLLAGENASE OINT 30 GM TUBE TOP SCH (09:37)
[2016-10-04] MEDS: LANSOPRAZOLE SOLUTAB 30 MG TAB NG SCH ×2 (09:37→20:50)
[2016-10-04] MEDS: FLUoxetine HCL 10 MG CAP PO SCH (09:37)
[2016-10-04 10:31] LABS: BASOPHIL # 0.1 TH/MM3 (0-0.2); BASOPHIL % 0.3 % (0.0-2.0); EOSINOPHIL # 0.1 TH/MM3 (0-0.4); EOSINOPHIL % 0.7 % (0.0-4.0); HEMATOCRIT 36.9 % (39.0-51.0); HEMOGLOBIN 12.2 GM/DL (13.0-17.0); LYMPH % 9.5 % (9.0-44.0); LYMPHOCYTE # 1.7 TH/MM3 (1.0-4.8); MEAN CELL VOLUME 86.5 FL (80.0-100.0); MEAN CORPUSCULAR HEMOGLOBIN 28.5 PG (27.0-34.0); MEAN PLATELET VOLUME 7.6 FL (7.0-11.0); MONO % 4.7 % (0.0-8.0); MONOCYTE # 0.8 TH/MM3 (0-0.9); NEUT % 84.8 % (16.0-70.0); PLATELET COUNT 764 TH/MM3 (150-450); RED BLOOD COUNT 4.26 MIL/MM3 (4.50-5.90); RED CELL DISTRIBUTION WIDTH 16.7 % (11.6-17.2); WHITE BLOOD COUNT 17.7 TH/MM3 (4.0-11.0)
--- NOTE | 2016-10-04 10:33 | HHI.PR ---
Subjective Remarks Follow up sepsis, tachycardia, fever. Patient continues to indicate that he is uncomfortable. Not able to be specific regarding the location of the pain. Objective Vitals Vital Signs Date Time Temp Pulse Resp B/P Pulse Ox O2 Delivery O2 Flow Rate FiO2 10/04/16 08:39 98.1 136 17 109/81 100 10/04/16 04:46 98.9 115 24 115/74 97 10/04/16 01:24 99.0 116 21 116/70 98 10/03/16 23:15 112/82 10/03/16 23:00 Room Air 10/03/16 20:38 98.2 124 20 109/82 10/03/16 20:17 118 10/03/16 17:49 16 10/03/16 16:08 98.1 132 16 124/74 96 10/03/16 12:33 98.5 135 20 117/85 97 I/O 10/03/16 10/03/16 10/03/16 10/04/16 10/04/16 10/04/16 07:00 15:00 23:00 07:00 15:00 23:00 Intake Total 1000 ml 1433 ml Output Total 225 ml 600 ml Balance 775 ml -600 ml 1433 ml Intake Oral 0 ml Tube Feeding 1000 ml 1433 ml Output Urine Total 225 ml 600 ml # Bowel Movements 0 Result Diagram: 10/03/16 1230 10/03/16 1230 Imaging Last Impressions Chest X-Ray 10/02/16 0000 Signed Impressions: Service Date/Time: Sunday, October 02, 2016 11:17 - CONCLUSION: No evidence of pneumothorax. Stable hazy airspace density involving the right hemithorax, atelectasis versus infectious process. Appearance is unchanged from prior exams. Ronna Lucia MD Upper Extremity Ultrasound 09/28/16 0000 Signed Impressions: Service Date/Time: Wednesday, September 28, 2016 19:15 - CONCLUSION: 1. Occlusive superficial thrombosis in the left cephalic vein near the antecubital fossa. No deep venous thrombosis. Sumit Bourgeois MD Abdomen/Pelvis CT 09/26/16 0000 Signed Impressions: Service Date/Time: Monday, September 26, 2016 15:05 - CONCLUSION: No definite acute CT findings in the abdomen or pelvis. Josafat Meyer MD Renal Ultrasound 08/28/16 0000 Signed Impressions: Service Date/Time: Sunday, August 28, 2016 20:03 - CONCLUSION: Mild increased echotexture of both kidneys. Baldev Vu MD Lumbar Puncture Fluoroscopy 08/17/16 0000 Signed Impressions: Service Date/Time: Wednesday, August 17, 2016 12:26 - CONCLUSION: Uncomplicated fluoroscopically guided lumbar puncture. Vishal Beckford Jr., MD Brain MRI 08/17/16 0000 Signed Impressions: Service Date/Time: Wednesday, August 17, 2016 13:28 - CONCLUSION: Remote long-standing areas of abnormality in the brainstem and middle cerebellar peduncle consistent with remote infarcts or contusion. No acute intracranial abnormality. Chacho Bright MD Abdomen X-Ray 08/17/16 0000 Signed Impressions: Service Date/Time: Wednesday, August 17, 2016 13:02 - CONCLUSION: No evidence of obstruction. No MRI incompatible foreign body is identified. Chacho Bright MD Head CT 08/16/16 0000 Signed Impressions: Service Date/Time: Tuesday, August 16, 2016 09:55 - CONCLUSION: Chronic ischemic changes left frontal lobe possibly from evidence of previous ventriculostomy placement, unchanged. No acute intracranial abnormality. Gen Potter MD Modified Barium Swallow 08/15/16 0000 Signed Impressions: Service Date/Time: Monday, August 15, 2016 00:00 - CONCLUSION: See report above and speech pathology report Chacho Bright MD Objective Remarks General: No acute distress. Heart: Regular rate and rhythm. No murmur. Lungs: Scattered rhonchi. Breathing is nonlabored. Abdomen: Soft, nontender, nondistended. Extremities: No lower extremity edema. Psych: Alert, nonverbal. 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 GI bleed, anemia secondary to acute blood loss: Gastroenterology has signed off. H&H stable. Status post transfusion of 3 units PRBCs on 09/26/16. Continue Prevacid. 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 Avoid sedatives. Patient has history of frontal lobe CVA. He is nonverbal, but is alert and answers questions by nodding his head. 3. Pneumonia: Continue oxygen, bronchodilators. Antibiotics discontinued by ID. WBCs trending down. Repeat CXR is stable. Continue Zosyn. Labs pending today. 4. Sepsis secondary to pneumonia, ?UTI: Antibiotics restarted yesterday. Appreciate infectious disease recommendations. Blood cultures are negative so far. 5. Hypertension: Continue metoprolol. Stop IV fluids. 6. Sacral decubitus ulcer: Continue wound care. 7. Sinus tachycardia: Increase metoprolol. Rate may be increased due to pain. 8. DVT prophylaxis: SCDs. Avoid chemical prophylaxis secondary to GI bleed, anemia. Problem Qualifiers (1) UTI (urinary tract infection): Qualified Code: N39.0 - Urinary tract infection without hematuria, site unspecified Ede Pablo MD Oct 04, 2016 10:33
[2016-10-04 10:56] LABS: BICARBONATE 32.7 MEQ/L (21.0-32.0); CALCIUM 10.2 MG/DL (8.5-10.1); CREATININE 0.84 MG/DL (0.60-1.30)
[2016-10-04] MEDS: ACETAMINOPHEN 325 MG TAB PO PRN (18:19)
[2016-10-05] VITALS (7 sets, daily range): BP systolic 102–116; BP diastolic 63–83; PULSE 95–138; RESP 16–20; TEMP 99–101.8; O2SAT 96–100
[2016-10-05] MEDS: ACETAMINOPHEN/HYDROcodone 325 MG/5 MG TAB PEG PRN ×3 (00:42→23:20)
[2016-10-05] MEDS: PIPERACIL-TAZO 3.375 GM PREMIX 50 ML IV SCH ×4 (01:30→21:42)
[2016-10-05] MEDS: INSULIN NovoLIN REGULAR SUPPLEMENTAL SCALE SQ SCH ×4 (05:00→21:45)
[2016-10-05] MEDS: METOPROLOL TARTRATE 25 MG TAB PO SCH ×2 (09:54→21:41)
[2016-10-05] MEDS: LANSOPRAZOLE SOLUTAB 30 MG TAB NG SCH ×2 (09:54→21:41)
[2016-10-05] MEDS: COLLAGENASE OINT 30 GM TUBE TOP SCH (09:54)
[2016-10-05] MEDS: ACETAMINOPHEN 325 MG TAB PO PRN ×2 (09:54→18:13)
[2016-10-05] MEDS: FLUoxetine HCL 10 MG CAP PO SCH (09:54)
--- NOTE | 2016-10-05 11:06 | HHI.PR ---
Subjective Remarks Sepsis alert called due to fever 101.8 and tachycardia. The patient states that he is not in pain. Denies dyspnea. Nurse states that his heart rate improved somewhat earlier after he was given pain medication. Objective Vitals Vital Signs Date Time Temp Pulse Resp B/P Pulse Ox O2 Delivery O2 Flow Rate FiO2 10/05/16 08:07 101.8 138 20 107/79 100 10/05/16 04:00 99.1 120 16 113/83 97 10/05/16 00:00 99.6 95 18 116/67 96 10/04/16 21:20 98.6 132 18 128/70 10/04/16 20:05 132 10/04/16 20:00 Room Air 10/04/16 18:00 101.5 142 14 111/70 98 10/04/16 16:19 98.9 127 18 92/63 97 10/04/16 12:25 98.2 127 18 106/73 98 I/O 10/04/16 10/04/16 10/04/16 10/05/16 10/05/16 10/05/16 07:00 15:00 23:00 07:00 15:00 23:00 Intake Total 1807 ml 1244 ml Output Total 250 ml 250 ml Balance 1557 ml 994 ml IV Total 502 ml 658 ml Tube Feeding 1255 ml 486 ml Other 50 ml 100 ml Output Urine Total 250 ml 250 ml Result Diagram: 10/04/16 0951 10/04/16 0951 Imaging Last Impressions Chest X-Ray 10/02/16 0000 Signed Impressions: Service Date/Time: Sunday, October 02, 2016 11:17 - CONCLUSION: No evidence of pneumothorax. Stable hazy airspace density involving the right hemithorax, atelectasis versus infectious process. Appearance is unchanged from prior exams. Ronna Lucia MD Upper Extremity Ultrasound 09/28/16 0000 Signed Impressions: Service Date/Time: Wednesday, September 28, 2016 19:15 - CONCLUSION: 1. Occlusive superficial thrombosis in the left cephalic vein near the antecubital fossa. No deep venous thrombosis. Sumit Bourgeois MD Abdomen/Pelvis CT 09/26/16 0000 Signed Impressions: Service Date/Time: Monday, September 26, 2016 15:05 - CONCLUSION: No definite acute CT findings in the abdomen or pelvis. Josafat Meyer MD Renal Ultrasound 08/28/16 0000 Signed Impressions: Service Date/Time: Sunday, August 28, 2016 20:03 - CONCLUSION: Mild increased echotexture of both kidneys. Baldev Vu MD Lumbar Puncture Fluoroscopy 08/17/16 0000 Signed Impressions: Service Date/Time: Wednesday, August 17, 2016 12:26 - CONCLUSION: Uncomplicated fluoroscopically guided lumbar puncture. Vishal Beckford Jr., MD Brain MRI 08/17/16 0000 Signed Impressions: Service Date/Time: Wednesday, August 17, 2016 13:28 - CONCLUSION: Remote long-standing areas of abnormality in the brainstem and middle cerebellar peduncle consistent with remote infarcts or contusion. No acute intracranial abnormality. Chacho Bright MD Abdomen X-Ray 08/17/16 0000 Signed Impressions: Service Date/Time: Wednesday, August 17, 2016 13:02 - CONCLUSION: No evidence of obstruction. No MRI incompatible foreign body is identified. Chacho Bright MD Head CT 08/16/16 0000 Signed Impressions: Service Date/Time: Tuesday, August 16, 2016 09:55 - CONCLUSION: Chronic ischemic changes left frontal lobe possibly from evidence of previous ventriculostomy placement, unchanged. No acute intracranial abnormality. Gen Potter MD Modified Barium Swallow 08/15/16 0000 Signed Impressions: Service Date/Time: Monday, August 15, 2016 00:00 - CONCLUSION: See report above and speech pathology report Chacho Bright MD Objective Remarks General: No acute distress. Heart: Regular rate and rhythm. No murmur. Lungs: Scattered rhonchi. Breathing is nonlabored. Abdomen: Soft, nontender, nondistended. Extremities: No lower extremity edema. Psych: Alert, nonverbal. 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 GI bleed, anemia secondary to acute blood loss: Gastroenterology has signed off. H&H stable. Status post transfusion of 3 units PRBCs on 09/26/16. Continue Prevacid. 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 Avoid sedatives. Patient has history of frontal lobe CVA. He is nonverbal, but is alert and answers questions by nodding his head. 3. Pneumonia: Continue oxygen, bronchodilators. Antibiotics discontinued by ID. WBCs trending down. Repeat CXR is stable. Continue Zosyn. Labs are pending today. 4. Sepsis secondary to pneumonia, ?UTI: Appreciate infectious disease recommendations. Blood cultures are negative so far. Patient is febrile and tachycardic again this morning. Sepsis alert called. Repeat blood cultures. Check UA. Continue Zosyn. Vancomycin discontinued by infectious disease. 5. Hypertension: Continue metoprolol. 6. Sacral decubitus ulcer: Continue wound care. 7. Sinus tachycardia: Continue metoprolol. Rate may be increased due to pain. 8. DVT prophylaxis: SCDs. Avoid chemical prophylaxis secondary to GI bleed, anemia. Problem Qualifiers (1) UTI (urinary tract infection): Qualified Code: N39.0 - Urinary tract infection without hematuria, site unspecified Ede Pablo MD Oct 05, 2016 11:06
[2016-10-05 12:09] LABS: AUTOMATED NEUTROPHIL # 15.8 TH/MM3 (1.8-7.7); BASOPHIL # 0.1 TH/MM3 (0-0.2); BASOPHIL % 0.3 % (0.0-2.0); EOSINOPHIL # 0.1 TH/MM3 (0-0.4); EOSINOPHIL % 0.3 % (0.0-4.0); HEMATOCRIT 33.8 % (39.0-51.0); HEMOGLOBIN 10.6 GM/DL (13.0-17.0); LYMPH % 10.6 % (9.0-44.0); MEAN CORPUSCULAR HEMOGLOBIN 27.1 PG (27.0-34.0); MEAN CORPUSCULAR HGB CONC 31.2 % (32.0-36.0); MEAN PLATELET VOLUME 7.7 FL (7.0-11.0); MONO % 4.9 % (0.0-8.0); MONOCYTE # 0.9 TH/MM3 (0-0.9); NEUT % 83.9 % (16.0-70.0); PLATELET COUNT 693 TH/MM3 (150-450); RED BLOOD COUNT 3.89 MIL/MM3 (4.50-5.90); RED CELL DISTRIBUTION WIDTH 16.3 % (11.6-17.2); WHITE BLOOD COUNT 18.9 TH/MM3 (4.0-11.0)
[2016-10-05] MEDS: SODIUM CHLOR 0.9% 1000 ML INJ 1,000 ML IV SCH ×2 (12:13→21:53)
[2016-10-05 12:41] LABS: BICARBONATE 29.3 MEQ/L (21.0-32.0); CALCIUM 9.6 MG/DL (8.5-10.1); CREATININE 0.78 MG/DL (0.60-1.30)
[2016-10-05 13:31] LABS: AMORPHOUS SEDIMENT, URINE MOD; BILIRUBIN, URINE NEG (NEG); BLOOD, URINE NEG (NEG); GLUCOSE,URINE NEG (NEG); KETONE, URINE NEG (NEG); NITRITE,URINE NEG (NEG); SQUAMOUS EPITHELIAL CELL URINE 3 /hpf (0-5); URINE COLOR YELLOW (YELLW/STRAW); URINE LEUKOCYTE ESTERASE NEG (NEG)
--- NOTE | 2016-10-05 16:46 | HHI.IDPN ---
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 Delayed entry Overnight events reviewed. Asked to see patient by for Sepsis alert (fever, WBC and tachycardia) Awake Slightly lethargic. Maurice changed. No diarrhea. 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 Vital Signs Date Time Temp Pulse Resp B/P Pulse Ox O2 Delivery O2 Flow Rate FiO2 10/05/16 16:00 100.5 120 20 102/63 100 10/05/16 11:51 99.3 109 20 111/67 99 10/05/16 10:03 135 10/05/16 10:03 Room Air 10/05/16 08:07 101.8 138 20 107/79 100 10/05/16 04:00 99.1 120 16 113/83 97 10/05/16 00:00 99.6 95 18 116/67 96 10/04/16 21:20 98.6 132 18 128/70 10/04/16 20:05 132 10/04/16 20:00 Room Air 10/04/16 18:00 101.5 142 14 111/70 98 10/04/16 10/04/16 10/05/16 15:00 23:00 07:00 Intake Total 1807 ml 1244 ml Output Total 250 ml 250 ml Balance 1557 ml 994 ml IV Total 502 ml 658 ml Tube Feeding 1255 ml 486 ml Other 50 ml 100 ml Output Urine Total 250 ml 250 ml . Laboratory Tests Test 10/04/16 10/05/16 09:51 11:42 White Blood Count 17.7 TH/MM3 18.9 TH/MM3 Red Blood Count 4.26 MIL/MM3 3.89 MIL/MM3 Hemoglobin 12.2 GM/DL 10.6 GM/DL Hematocrit 36.9 % 33.8 % Mean Corpuscular Volume 86.5 FL 87.0 FL Mean Corpuscular Hemoglobin 28.5 PG 27.1 PG Mean Corpuscular Hemoglobin 33.0 % 31.2 % Concent Red Cell Distribution Width 16.7 % 16.3 % Platelet Count 764 TH/MM3 693 TH/MM3 Mean Platelet Volume 7.6 FL 7.7 FL Neutrophils (%) (Auto) 84.8 % 83.9 % Lymphocytes (%) (Auto) 9.5 % 10.6 % Monocytes (%) (Auto) 4.7 % 4.9 % Eosinophils (%) (Auto) 0.7 % 0.3 % Basophils (%) (Auto) 0.3 % 0.3 % Neutrophils # (Auto) 15.0 TH/MM3 15.8 TH/MM3 Lymphocytes # (Auto) 1.7 TH/MM3 2.0 TH/MM3 Monocytes # (Auto) 0.8 TH/MM3 0.9 TH/MM3 Eosinophils # (Auto) 0.1 TH/MM3 0.1 TH/MM3 Basophils # (Auto) 0.1 TH/MM3 0.1 TH/MM3 CBC Comment DIFF FINAL DIFF FINAL Differential Comment Laboratory Tests Test 10/04/16 10/05/16 09:51 11:42 Sodium Level 137 MEQ/L 136 MEQ/L Potassium Level 4.5 MEQ/L 3.9 MEQ/L Chloride Level 98 MEQ/L 100 MEQ/L Carbon Dioxide Level 32.7 MEQ/L 29.3 MEQ/L Anion Gap 6 MEQ/L 7 MEQ/L Blood Urea Nitrogen 22 MG/DL 18 MG/DL Creatinine 0.84 MG/DL 0.78 MG/DL Estimat Glomerular Filtration 120 ML/MIN 131 ML/MIN Rate Random Glucose 159 MG/DL 130 MG/DL Calcium Level 10.2 MG/DL 9.6 MG/DL Microbiology Date/Time Procedure Status Source Growth 10/05/16 14:00 Aerobic Blood Culture Received Blood Peripheral Pending 10/05/16 14:00 Anaerobic Blood Culture Received Blood Peripheral Pending 10/05/16 14:38 Aerobic Blood Culture Received Blood Peripheral Pending 10/05/16 14:38 Anaerobic Blood Culture Received Blood Peripheral Pending Imaging Last Impressions Upper Extremity Ultrasound 09/28/16 0000 Signed Impressions: Service Date/Time: Wednesday, September 28, 2016 19:15 - CONCLUSION: 1. Occlusive superficial thrombosis in the left cephalic vein near the antecubital fossa. No deep venous thrombosis. Sumit Bourgeois MD Chest X-Ray 4/5/17 0000 Signed Impressions: Service Date/Time: Wednesday, September 28, 2016 03:32 - CONCLUSION: Unchanged right upper lobe infiltrate. Vishal Beckford Jr., MD Abdomen/Pelvis CT 09/26/16 Signed Impressions: Service Date/Time: Monday, September 26, 2016 15:05 - CONCLUSION: No definite acute CT findings in the abdomen or pelvis. Josafat Meyer MD Renal Ultrasound 08/28/16 Signed Impressions: Service Date/Time: Sunday, August 28, 2016 20:03 - CONCLUSION: Mild increased echotexture of both kidneys. Baldev Vu MD Lumbar Puncture Fluoroscopy 08/17/16 Signed Impressions: Service Date/Time: Wednesday, August 17, 2016 12:26 - CONCLUSION: Uncomplicated fluoroscopically guided lumbar puncture. Vishal Beckford Jr., MD Brain MRI 08/17/16 Signed Impressions: Service Date/Time: Wednesday, August 17, 2016 13:28 - CONCLUSION: Remote long-standing areas of abnormality in the brainstem and middle cerebellar peduncle consistent with remote infarcts or contusion. No acute intracranial abnormality. Chacho Bright MD Abdomen X-Ray 08/17/16 Signed Impressions: Service Date/Time: Wednesday, August 17, 2016 13:02 - CONCLUSION: No evidence of obstruction. No MRI incompatible foreign body is identified. Chacho Bright MD Head CT 08/16/16 Signed Impressions: Service Date/Time: Tuesday, August 16, 2016 09:55 - CONCLUSION: Chronic ischemic changes left frontal lobe possibly from evidence of previous ventriculostomy placement, unchanged. No acute intracranial abnormality. Gen Potter MD Modified Barium Swallow 08/15/16 Signed Impressions: Service Date/Time: Monday, August 15, 2016 00:00 - CONCLUSION: See report above and speech pathology report Chacho Bright MD Physical Exam GENERAL: Poorly nourished, chronically ill appearing patient, in no apparent distress. SKIN: Old scars on arms. EYES: Pupils equal round and reactive. Extraocular motions intact. No scleral icterus. No injection or drainage. ENT: moist mucosae CARDIOVASCULAR: HS audible. No murmur. RESPIRATORY:. Breath sounds equal bilaterally. clear to auscultation GASTROINTESTINAL: Abdomen soft, non-tender, minimally distended. : maurice in place with clear yellow urine MUSCULOSKELETAL: Extremities without clubbing, cyanosis, or edema. Wasting and contractures. ? Warmth in the perineal region close to the decub ulcer. ? cellulitis vs pressure related. NEUROLOGICAL: Awake and alert. Aphasic. Communicates with yes/no LE weakness but able to flex both limbs minimally. Contractures noted. Psych: unable to assess IV line sites with no e.o infection. Assessment & Plan Remarks Diagnosis: (1) Neurologic type Behcet's syndrome (2) Fever, and Leucocytosis: ? microaspiration, ? 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 New PNA RUL Plan: Follow blood cultures Follow UA/urine cultures. Follow procalcitonin. If normal will get Doppler UE and LE to r/o DVT. If positive procalcitonin will consider CT Abd/pelvis to r/o perineal cellulitis (pt is dark skinned difficult to assess skin color) Change maurice. Continue Zosyn IV (for aspiration) Restart Vanco IV (target for cellulitis) Isolate for VRE colonization in the wound. d/w . Berna Reyes MD Oct 05, 2016 16:46
--- NOTE | 2016-10-05 17:26 | RADRPT ---
EXAM DATE/TIME: 10/05/2016 17:12 [facility] COMPARISON: CHEST SINGLE AP, October 02, 2016, 11:17. INDICATIONS : Shortness of breath MEDICAL HISTORY : Stroke. Cardiovascular disease SURGICAL HISTORY : None. ENCOUNTER: Subsequent ACUITY: 1 week PAIN SCORE: Non-responsive. LOCATION: Bilateral chest FINDINGS: A single view of the chest demonstrates the lungs to be symmetrically aerated without evidence of mas s, infiltrate or effusion. The cardiomediastinal contours are unremarkable. Osseous structures are intact. CONCLUSION: No acute disease. Baldev Vu MD on October 05, 2016 at 17:24 Board Certified Radiologist. This report was verified electronically.
[2016-10-06] VITALS (7 sets, daily range): BP systolic 107–149; BP diastolic 73–88; PULSE 116–132; RESP 18–19; TEMP 98.7–102.7; O2SAT 95–100
[2016-10-06] MEDS: PIPERACIL-TAZO 3.375 GM PREMIX 50 ML IV SCH ×4 (03:48→22:08)
[2016-10-06] MEDS: ACETAMINOPHEN 325 MG TAB PO PRN ×4 (04:07→22:16)
[2016-10-06] MEDS: INSULIN NovoLIN REGULAR SUPPLEMENTAL SCALE SQ SCH ×4 (04:17→22:12)
[2016-10-06] MEDS: ACETAMINOPHEN/HYDROcodone 325 MG/5 MG TAB PEG PRN ×2 (04:18→22:09)
[2016-10-06 07:29] LABS: AUTOMATED NEUTROPHIL # 20.1 TH/MM3 (1.8-7.7); BASOPHIL # 0.1 TH/MM3 (0-0.2); BASOPHIL % 0.4 % (0.0-2.0); EOSINOPHIL % 0.2 % (0.0-4.0); HEMATOCRIT 31.3 % (39.0-51.0); LYMPH % 7.3 % (9.0-44.0); LYMPHOCYTE # 1.7 TH/MM3 (1.0-4.8); MEAN CELL VOLUME 87.3 FL (80.0-100.0); MEAN CORPUSCULAR HEMOGLOBIN 27.8 PG (27.0-34.0); MEAN CORPUSCULAR HGB CONC 31.9 % (32.0-36.0); MEAN PLATELET VOLUME 8.2 FL (7.0-11.0); MONO % 5.5 % (0.0-8.0); MONOCYTE # 1.3 TH/MM3 (0-0.9); NEUT % 86.6 % (16.0-70.0); PLATELET COUNT 546 TH/MM3 (150-450); RED BLOOD COUNT 3.58 MIL/MM3 (4.50-5.90); WHITE BLOOD COUNT 23.2 TH/MM3 (4.0-11.0)
[2016-10-06 07:39] LABS: BICARBONATE 26.5 MEQ/L (21.0-32.0); CALCIUM 9.6 MG/DL (8.5-10.1); CREATININE 0.73 MG/DL (0.60-1.30)
[2016-10-06] MEDS: METOPROLOL TARTRATE 25 MG TAB PO SCH ×2 (09:00→11:04)
[2016-10-06] MEDS: COLLAGENASE OINT 30 GM TUBE TOP SCH (09:00)
[2016-10-06] MEDS: SODIUM CHLOR 0.9% 1000 ML INJ 1,000 ML IV SCH ×2 (10:01→22:12)
[2016-10-06] MEDS: FLUoxetine HCL 10 MG CAP PO SCH (10:04)
[2016-10-06] MEDS: LANSOPRAZOLE SOLUTAB 30 MG TAB NG SCH ×2 (10:04→22:09)
--- NOTE | 2016-10-06 19:34 | RADRPT ---
EXAM DATE/TIME: 10/06/2016 17:29 [facility] COMPARISON: No previous studies available for comparison. INDICATIONS : Bilateral leg swelling. MEDICAL HISTORY : Hypertension. CVA. Migraines. Numbness bilateral hands. Depression. Clotting problems. Anitcoauglan t therapy, Xarelto. VRE (buttock). SURGICAL HISTORY : Abdominal surgery. ENCOUNTER: Initial ACUITY: 1 day PAIN SCORE: Non-responsive LOCATION: Bilateral leg. TECHNIQUE: Venous ultrasound of the left and right leg was performed from the inguinal ligament to the proximal calf. Real-time, color Doppler and spectral tracing, compression and augmentation techniques were us ed. FINDINGS: RIGHT LEG: There is normal compressibility of the deep venous system from the inguinal region to the proximal ca lf. No echogenic clot is seen in the lumen of the common femoral, femoral, popliteal, and posterior tibial veins. There is a normal response of the venous system to proximal and distal augmentation an d respiration. LEFT LEG: There is normal compressibility of the deep venous system from the inguinal region to the proximal ca lf. No echogenic clot is seen in the lumen of the common femoral, femoral, popliteal, and posterior tibial veins. There is a normal response of the venous system to proximal and distal augmentation an d respiration. CONCLUSION: Normal examination. Josafat Meyer MD on October 06, 2016 at 19:32 Board Certified Radiologist. This report was verified electronically.
--- NOTE | 2016-10-06 20:03 | HHI.IDPN ---
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 Overnight events reviewed. Awake, tracks to verbal communicatio. Slightly lethargic. Maurice changed. No diarrhea. 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 Vital Signs Date Time Temp Pulse Resp B/P Pulse Ox O2 Delivery O2 Flow Rate FiO2 10/06/16 16:00 102.7 132 18 124/84 97 10/06/16 12:00 99.6 131 18 149/88 99 10/06/16 08:00 98.7 125 18 107/75 97 10/06/16 04:00 98.9 132 19 127/88 100 10/06/16 00:00 100.1 116 18 138/82 100 10/05/16 10/05/16 10/06/16 15:00 23:00 07:00 Intake Total 1892 ml Output Total 450 ml 300 ml Balance -450 ml 1892 ml -300 ml IV Total 892 ml Tube Feeding 1000 ml Output Urine Total 450 ml 300 ml . Laboratory Tests Test 10/05/16 10/06/16 11:42 06:00 White Blood Count 18.9 TH/MM3 23.2 TH/MM3 Red Blood Count 3.89 MIL/MM3 3.58 MIL/MM3 Hemoglobin 10.6 GM/DL 10.0 GM/DL Hematocrit 33.8 % 31.3 % Mean Corpuscular Volume 87.0 FL 87.3 FL Mean Corpuscular Hemoglobin 27.1 PG 27.8 PG Mean Corpuscular Hemoglobin 31.2 % 31.9 % Concent Red Cell Distribution Width 16.3 % 16.0 % Platelet Count 693 TH/MM3 546 TH/MM3 Mean Platelet Volume 7.7 FL 8.2 FL Neutrophils (%) (Auto) 83.9 % 86.6 % Lymphocytes (%) (Auto) 10.6 % 7.3 % Monocytes (%) (Auto) 4.9 % 5.5 % Eosinophils (%) (Auto) 0.3 % 0.2 % Basophils (%) (Auto) 0.3 % 0.4 % Neutrophils # (Auto) 15.8 TH/MM3 20.1 TH/MM3 Lymphocytes # (Auto) 2.0 TH/MM3 1.7 TH/MM3 Monocytes # (Auto) 0.9 TH/MM3 1.3 TH/MM3 Eosinophils # (Auto) 0.1 TH/MM3 0.0 TH/MM3 Basophils # (Auto) 0.1 TH/MM3 0.1 TH/MM3 CBC Comment DIFF FINAL DIFF FINAL Differential Comment Laboratory Tests Test 10/05/16 10/06/16 11:42 06:00 Sodium Level 136 MEQ/L 136 MEQ/L Potassium Level 3.9 MEQ/L 3.8 MEQ/L Chloride Level 100 MEQ/L 101 MEQ/L Carbon Dioxide Level 29.3 MEQ/L 26.5 MEQ/L Anion Gap 7 MEQ/L 9 MEQ/L Blood Urea Nitrogen 18 MG/DL 15 MG/DL Creatinine 0.78 MG/DL 0.73 MG/DL Estimat Glomerular Filtration 131 ML/MIN 141 ML/MIN Rate Random Glucose 130 MG/DL 143 MG/DL Calcium Level 9.6 MG/DL 9.6 MG/DL Procalcitonin 0.18 ng/mL Microbiology Date/Time Procedure Status Source Growth 10/05/16 14:00 Aerobic Blood Culture - Preliminary Resulted Blood Peripheral NO GROWTH IN 1 DAY 10/05/16 14:00 Anaerobic Blood Culture - Preliminary Resulted Blood Peripheral NO GROWTH IN 1 DAY 10/05/16 14:38 Aerobic Blood Culture - Preliminary Resulted Blood Peripheral NO GROWTH IN 1 DAY 10/05/16 14:38 Anaerobic Blood Culture - Preliminary Resulted Blood Peripheral NO GROWTH IN 1 DAY Imaging Last Impressions Upper Extremity Ultrasound 09/28/16 0000 Signed Impressions: Service Date/Time: Wednesday, September 28, 2016 19:15 - CONCLUSION: 1. Occlusive superficial thrombosis in the left cephalic vein near the antecubital fossa. No deep venous thrombosis. Sumit Bourgeois MD Chest X-Ray 09/28/16 0000 Signed Impressions: Service Date/Time: Wednesday, September 28, 2016 03:32 - CONCLUSION: Unchanged right upper lobe infiltrate. Vishal Beckford Jr., MD Abdomen/Pelvis CT 09/26/16 0000 Signed Impressions: Service Date/Time: Monday, September 26, 2016 15:05 - CONCLUSION: No definite acute CT findings in the abdomen or pelvis. Josafat Meyer MD Renal Ultrasound 08/28/16 Signed Impressions: Service Date/Time: Sunday, August 28, 2016 20:03 - CONCLUSION: Mild increased echotexture of both kidneys. Baldev Vu MD Lumbar Puncture Fluoroscopy 08/17/16 0000 Signed Impressions: Service Date/Time: Wednesday, August 17, 2016 12:26 - CONCLUSION: Uncomplicated fluoroscopically guided lumbar puncture. Vishal Beckford Jr., MD Brain MRI 08/17/16 Signed Impressions: Service Date/Time: Wednesday, August 17, 2016 13:28 - CONCLUSION: Remote long-standing areas of abnormality in the brainstem and middle cerebellar peduncle consistent with remote infarcts or contusion. No acute intracranial abnormality. Chacho Bright MD Abdomen X-Ray 08/17/16 Signed Impressions: Service Date/Time: Wednesday, August 17, 2016 13:02 - CONCLUSION: No evidence of obstruction. No MRI incompatible foreign body is identified. Chacho Bright MD Head CT 08/16/16 Signed Impressions: Service Date/Time: Tuesday, August 16, 2016 09:55 - CONCLUSION: Chronic ischemic changes left frontal lobe possibly from evidence of previous ventriculostomy placement, unchanged. No acute intracranial abnormality. Gen Potter MD Modified Barium Swallow 08/15/16 Signed Impressions: Service Date/Time: Monday, August 15, 2016 00:00 - CONCLUSION: See report above and speech pathology report Chacho Bright MD Physical Exam GENERAL: Poorly nourished, chronically ill appearing patient, in no apparent distress. SKIN: Old scars on arms. EYES: Pupils equal round and reactive. Extraocular motions intact. No scleral icterus. No injection or drainage. ENT: moist mucosae CARDIOVASCULAR: HS audible. No murmur. RESPIRATORY:. Breath sounds equal bilaterally. clear to auscultation GASTROINTESTINAL: Abdomen soft, non-tender, minimally distended. : amurice in place with clear yellow urine MUSCULOSKELETAL: Extremities without clubbing, cyanosis, or edema. Wasting and contractures. ? Warmth in the perineal region close to the decub ulcer. ? cellulitis vs pressure related. NEUROLOGICAL: Awake and alert. Aphasic. Communicates with yes/no LE weakness but able to flex both limbs minimally. Contractures noted. Psych: unable to assess IV line sites with no e.o infection. 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 (2) Fever, and Leucocytosis: likely non infectious at this point. (3) GI bleed: from ulcer; no e/o C.diff (4) Buttock wound - no e/o infection; colonized with VRE, peudomonas Plan: Follow blood cultures Follow UA/urine cultures. Procalcitonin normal. If CT C/A/P normal will likely stop all antibiotics in am. Please review notes re: steroids. Consider Neurology reconsult and a longterm plan for NeuroBehcets syndrome such as pulse steroids followed by maintenance steroids once infection ruled out tonight with imaging. CT PE protocol: bed bound Doppler LE negative. Change maurice. Continue Zosyn IV (for aspiration) Restart Vanco IV (target for cellulitis) Isolate for VRE colonization in the wound. d/w . Berna Reyes MD Oct 06, 2016 20:03
--- NOTE | 2016-10-06 20:19 | HHI.PR ---
Subjective Remarks Patient still with fevers of 103 wbc is trending up no diarrhea patient slightly lethargic Objective Vitals Vital Signs Date Time Temp Pulse Resp B/P Pulse Ox O2 Delivery O2 Flow Rate FiO2 10/06/16 16:00 102.7 132 18 124/84 97 10/06/16 12:00 99.6 131 18 149/88 99 10/06/16 08:00 98.7 125 18 107/75 97 10/06/16 04:00 98.9 132 19 127/88 100 10/06/16 00:00 100.1 116 18 138/82 100 I/O 10/05/16 10/05/16 10/05/16 10/06/16 10/06/16 10/06/16 07:00 15:00 23:00 07:00 15:00 23:00 Intake Total 1244 ml 1892 ml 0 ml Output Total 250 ml 450 ml 300 ml 2700 ml Balance 994 ml -450 ml 1892 ml -300 ml -2700 ml Intake Oral 0 ml IV Total 658 ml 892 ml Tube Feeding 486 ml 1000 ml Other 100 ml Output Urine Total 250 ml 450 ml 300 ml 2200 ml Stool Total 500 ml Result Diagram: 10/06/16 0600 10/06/16 0600 Objective Remarks General: No acute distress. Heart: Regular rate and rhythm. No murmur. Lungs: Scattered rhonchi. Breathing is nonlabored. Abdomen: Soft, nontender, nondistended. Extremities: No lower extremity edema. Psych: Alert, nonverbal. Procedures 07/19/16 EGD with PEG tube placement 09/27/16 colonoscopy Urinary Catheter: Yes Assessment to: Continue Kowalski insert reason: Prolonged Immobilization A/P Problem List: (1) Sepsis ICD Code: A41.9 Status: Acute Plan: Initially patient presented with hypotension and shock and severe sepsis thought to be secondary to a right upper lobe pneumonia. Patient was admitted to intensive care unit and initially treated by the [employer] thread winder. Patient still febrile, tachycardic, wbc trending up. ua on 10/05 negative c diff negative x 2 last 09/25 HIV negative x2 CSF with increased protein and csf' C. difficile negative 3, last test on 10/07/16. Discussed with Dr Reyes -there is no clear source for sepsis at this time. Fever could be non infectious CT abdomen and pelvis ordered conitnue Tylenol for fever I will Rx ibuprofen for fever if Tylenol innefective. Continue IV fuids and IV antibiotics. (2) Encephalopathy ICD Code: G93.40 Status: Resolved Plan: Likely metabolic encephalopathy secondary to sepsis and pneumonia. Patient now awake and alert. Continue to monitor neurological status. 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 Avoid sedative medications. Patient has history of frontal lobe CVA. Patient is nonverbal and is alert and answers questions by nodding his head. (4) GI bleed ICD Code: K92.2 Status: Resolved Plan: GI consulted for dysphagia. EGD and PEG tube placement was performed on 08/19/16. A second EGD and PEG tube revision was performed on 09/25/16. Colonoscopy performed on 09/27/16 showed an ascending colon ulcer. Pathology is negative for malignant cells. H&H is a stable. Continue to monitor CBC. Continue Lansoprazole via NG tube. (5) HCAP (healthcare-associated pneumonia) ICD Code: J18.9 Status: Acute Plan: Patient being treated empirically for right upper lobe pna. Chest x-ray obtained on September 25 showed a developing infiltrate in the right upper lobe which was not present in previous x-rays on same hospitalization. Assessment and Plan GI proph - PPI DVT proph - SCD's, no chemoprophylaxis given recent GI bleed. Discharge Planning Continue to monitor in the medical floor Problem Qualifiers (1) GI bleed: Qualified Code: K92.2 - Gastrointestinal hemorrhage, unspecified gastrointestinal hemorrhage type Stephan Garcia MD Oct 06, 2016 20:19
--- NOTE | 2016-10-06 21:10 | EKG ---
Date Performed: 10/05/2016 Time Performed: 23:17:32 PTAGE: 46 years EKG: Sinus tachycardia Normal ECG except for rate PREVIOUS TRACING : 08/28/2016 12.21 Compared to prior tracing no significant change DOCTOR: Collin Ureña Interpretating Date/Time 10/06/2016 21:08:15
--- NOTE | 2016-10-06 21:56 | RADRPT ---
EXAM DATE/TIME: 10/06/2016 20:31 [facility] COMPARISON: No previous studies available for comparison. INDICATIONS : Sacral decubutis ulcer. Evaluate cellulitis in pelvic region. IV CONTRAST: 90 cc Omnipaque 350 (iohexol) IV ; Cumulative dose for multiple exams. ORAL CONTRAST: No oral contrast ingested. RADIATION DOSE: 11.87 CTDIvol (mGy) MEDICAL HISTORY : Hypertension. Diabetes mellitus type 2. SURGICAL HISTORY : None. ENCOUNTER: Initial ACUITY: 1 day PAIN SCALE: Non-responsive LOCATION: pelvis TECHNIQUE: Volumetric scanning of the abdomen and pelvis was performed. Using automated exposure control and ad justment of the mA and/or kV according to patient size, radiation dose was kept as low as reasonably achievable to obtain optimal diagnostic quality images. FINDINGS: LOWER LUNGS: The visualized lower lungs are clear. LIVER: Homogeneous density without lesion. There is no dilation of the biliary tree. No calcified gallston es. SPLEEN: Normal size without lesion. PANCREAS: Within normal limits. KIDNEYS: Tiny bilateral renal cysts. No hydronephrosis. ADRENAL GLANDS: Within normal limits. VASCULAR: There is no aortic aneurysm. BOWEL/MESENTERY: Gastrostomy tube in good position. No evidence of bowel obstruction or wall thickening. Rectal tube i n place. ABDOMINAL WALL: Within normal limits. RETROPERITONEUM: There is no lymphadenopathy. BLADDER: Minimal air present in the bladder lumen. Small volume of dependent radiodense debris in the posterio r bladder base. REPRODUCTIVE: Within normal limits. INGUINAL: There is no lymphadenopathy or hernia. MUSCULOSKELETAL: Mild induration in the cutaneous and subcutaneous tissues superficial to the sacrum. No evidence of a bscess. Bilateral hip joint effusions and dystrophic calcifications around the hips. CONCLUSION: No evidence of pelvic abscess. Josafat Meyer MD on October 06, 2016 at 21:49 Board Certified Radiologist. This report was verified electronically.
--- NOTE | 2016-10-06 22:01 | RADRPT ---
EXAM DATE/TIME: 10/06/2016 20:31 [facility] COMPARISON: No previous studies available for comparison. INDICATIONS : Short of breath. IV CONTRAST: 90 cc Omnipaque 350 (iohexol) IV ; Cumulative dose for multiple exams. RADIATION DOSE: 9.37 CTDIvol (mGy) MEDICAL HISTORY : Hypertension. Diabetes mellitus type 2. SURGICAL HISTORY : None. ENCOUNTER: Initial ACUITY: 1 day PAIN SCALE: Non-responsive LOCATION: chest TECHNIQUE: Volumetric scanning of the chest was performed using a pulmonary embolism protocol MIP images were re constructed. Using automated exposure control and adjustment of the mA and/or kV according to patien t size, radiation dose was kept as low as reasonably achievable to obtain optimal diagnostic quality images. FINDINGS: PULMONARY ARTERIES: No filling defects are seen in the pulmonary arteries through the segmental level. LUNGS: Mild infiltrate in the lateral right upper lobe. Minimal atelectasis in the lung bases.. PLEURAE: There is no pleural thickening or pleural effusion. MEDIASTINUM: There is good visualization of the great vessels of the middle mediastinum. No evidence of mediastin al or hilar adenopathy/mass. MUSCULOSKELETAL: Scoliosis. MISCELLANEOUS: The visualized upper abdominal organs demonstrate no acute abnormality. CONCLUSION: Minimal right upper lobe infiltrate and basilar atelectasis. No evidence of pulmonary embolism.. Josafat Meyer MD on October 06, 2016 at 21:55 Board Certified Radiologist. This report was verified electronically.
[2016-10-07] VITALS (7 sets, daily range): BP systolic 114–141; BP diastolic 69–83; PULSE 88–138; RESP 18–20; TEMP 97.3–101.1; O2SAT 96–100
[2016-10-07] MEDS: METOPROLOL TARTRATE 25 MG TAB PO SCH ×3 (00:10→20:33)
[2016-10-07] MEDS: PIPERACIL-TAZO 3.375 GM PREMIX 50 ML IV SCH ×4 (02:38→20:33)
[2016-10-07] MEDS: ACETAMINOPHEN 325 MG TAB PO PRN (06:22)
[2016-10-07] MEDS: INSULIN NovoLIN REGULAR SUPPLEMENTAL SCALE SQ SCH ×4 (06:24→23:00)
[2016-10-07] MEDS: ACETAMINOPHEN/HYDROcodone 325 MG/5 MG TAB PEG PRN ×4 (06:26→21:58)
[2016-10-07 08:18] LABS: ALBUMIN 2.6 GM/DL (3.4-5.0); ALT (GPT) 24 U/L (12-78); AST (GOT) 15 U/L (15-37); BICARBONATE 25.9 MEQ/L (21.0-32.0); BLOOD UREA NITROGEN 13 MG/DL (7-18); CALCIUM 9.6 MG/DL (8.5-10.1); CHLORIDE 100 MEQ/L (98-107); CREATININE 0.77 MG/DL (0.60-1.30); GLOMERULAR FILTRATION RATE 133 ML/MIN (>89); GLUCOSE,RANDOM 133 MG/DL (74-106); PHOSPHORUS 2.1 MG/DL (2.5-4.9); SODIUM (NA) 135 MEQ/L (136-145)
[2016-10-07] MEDS: LANSOPRAZOLE SOLUTAB 30 MG TAB NG SCH ×2 (08:18→20:33)
[2016-10-07] MEDS: FLUoxetine HCL 10 MG CAP PO SCH (08:18)
[2016-10-07 08:20] LABS: ALKALINE PHOSPHATASE 88 U/L (45-117); TOTAL BILIRUBIN ADULT 0.4 MG/DL (0.2-1.0); TOTAL PROTEIN 8.2 GM/DL (6.4-8.2)
[2016-10-07] MEDS: COLLAGENASE OINT 30 GM TUBE TOP SCH ×2 (09:00→21:58)
--- NOTE | 2016-10-07 11:34 | HHI.IDPN ---
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 Overnight events reviewed. Awake, tracks to verbal communicatio. Slightly lethargic. Maurice changed. No diarrhea. 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 Vital Signs Date Time Temp Pulse Resp B/P Pulse Ox O2 Delivery O2 Flow Rate FiO2 10/07/16 08:00 97.3 108 18 121/75 96 10/07/16 04:00 100.8 134 18 129/81 100 10/06/16 22:15 101.8 10/06/16 20:00 99.3 128 18 107/73 95 10/06/16 20:00 Room Air 10/06/16 20:00 124 10/06/16 16:00 102.7 132 18 124/84 97 10/06/16 12:00 99.6 131 18 149/88 99 10/06/16 10/06/16 10/07/16 15:00 23:00 07:00 Intake Total 0 ml 0 ml 749 ml Output Total 2700 ml 450 ml 400 ml Balance -2700 ml -450 ml 349 ml Intake Oral 0 ml 0 ml 0 ml IV Total 749 ml Output Urine Total 2200 ml 450 ml 400 ml Stool Total 500 ml 0 ml # Bowel Movements 1 . Laboratory Tests Test 10/05/16 10/06/16 11:42 06:00 White Blood Count 18.9 TH/MM3 23.2 TH/MM3 Red Blood Count 3.89 MIL/MM3 3.58 MIL/MM3 Hemoglobin 10.6 GM/DL 10.0 GM/DL Hematocrit 33.8 % 31.3 % Mean Corpuscular Volume 87.0 FL 87.3 FL Mean Corpuscular Hemoglobin 27.1 PG 27.8 PG Mean Corpuscular Hemoglobin 31.2 % 31.9 % Concent Red Cell Distribution Width 16.3 % 16.0 % Platelet Count 693 TH/MM3 546 TH/MM3 Mean Platelet Volume 7.7 FL 8.2 FL Neutrophils (%) (Auto) 83.9 % 86.6 % Lymphocytes (%) (Auto) 10.6 % 7.3 % Monocytes (%) (Auto) 4.9 % 5.5 % Eosinophils (%) (Auto) 0.3 % 0.2 % Basophils (%) (Auto) 0.3 % 0.4 % Neutrophils # (Auto) 15.8 TH/MM3 20.1 TH/MM3 Lymphocytes # (Auto) 2.0 TH/MM3 1.7 TH/MM3 Monocytes # (Auto) 0.9 TH/MM3 1.3 TH/MM3 Eosinophils # (Auto) 0.1 TH/MM3 0.0 TH/MM3 Basophils # (Auto) 0.1 TH/MM3 0.1 TH/MM3 CBC Comment DIFF FINAL DIFF FINAL Differential Comment Laboratory Tests Test 10/05/16 10/06/16 10/07/16 11:42 06:00 05:59 Sodium Level 136 MEQ/L 136 MEQ/L 135 MEQ/L Potassium Level 3.9 MEQ/L 3.8 MEQ/L 4.1 MEQ/L Chloride Level 100 MEQ/L 101 MEQ/L 100 MEQ/L Carbon Dioxide Level 29.3 MEQ/L 26.5 MEQ/L 25.9 MEQ/L Anion Gap 7 MEQ/L 9 MEQ/L 9 MEQ/L Blood Urea Nitrogen 18 MG/DL 15 MG/DL 13 MG/DL Creatinine 0.78 MG/DL 0.73 MG/DL 0.77 MG/DL Estimat Glomerular Filtration 131 ML/MIN 141 ML/MIN 133 ML/MIN Rate Random Glucose 130 MG/DL 143 MG/DL 133 MG/DL Calcium Level 9.6 MG/DL 9.6 MG/DL 9.6 MG/DL Procalcitonin 0.18 ng/mL Phosphorus Level 2.1 MG/DL Magnesium Level 2.0 MG/DL Total Bilirubin 0.4 MG/DL Aspartate Amino Transf 15 U/L (AST/SGOT) Alanine Aminotransferase 24 U/L (ALT/SGPT) Alkaline Phosphatase 88 U/L Total Protein 8.2 GM/DL Albumin 2.6 GM/DL Microbiology Date/Time Procedure Status Source Growth 10/05/16 14:00 Aerobic Blood Culture - Preliminary Resulted Blood Peripheral NO GROWTH IN 2 DAYS 10/05/16 14:00 Anaerobic Blood Culture - Preliminary Resulted Blood Peripheral NO GROWTH IN 2 DAYS 10/05/16 14:38 Aerobic Blood Culture - Preliminary Resulted Blood Peripheral NO GROWTH IN 2 DAYS 10/05/16 14:38 Anaerobic Blood Culture - Preliminary Resulted Blood Peripheral NO GROWTH IN 2 DAYS Imaging Last Impressions Upper Extremity Ultrasound 09/28/16 0000 Signed Impressions: Service Date/Time: Wednesday, September 28, 2016 19:15 - CONCLUSION: 1. Occlusive superficial thrombosis in the left cephalic vein near the antecubital fossa. No deep venous thrombosis. Sumit Bourgeois MD Chest X-Ray 09/28/16 0000 Signed Impressions: Service Date/Time: Wednesday, September 28, 2016 03:32 - CONCLUSION: Unchanged right upper lobe infiltrate. Vishal Beckford Jr., MD Abdomen/Pelvis CT 09/26/16 0000 Signed Impressions: Service Date/Time: Monday, September 26, 2016 15:05 - CONCLUSION: No definite acute CT findings in the abdomen or pelvis. Josafat Meyer MD Renal Ultrasound 08/28/16 0000 Signed Impressions: Service Date/Time: Sunday, August 28, 2016 20:03 - CONCLUSION: Mild increased echotexture of both kidneys. Baldev Vu MD Lumbar Puncture Fluoroscopy 08/17/16 0000 Signed Impressions: Service Date/Time: Wednesday, August 17, 2016 12:26 - CONCLUSION: Uncomplicated fluoroscopically guided lumbar puncture. Vishal Beckford Jr., MD Brain MRI 08/17/16 0000 Signed Impressions: Service Date/Time: Wednesday, August 17, 2016 13:28 - CONCLUSION: Remote long-standing areas of abnormality in the brainstem and middle cerebellar peduncle consistent with remote infarcts or contusion. No acute intracranial abnormality. Chacho Bright MD Abdomen X-Ray 08/17/16 0000 Signed Impressions: Service Date/Time: Wednesday, August 17, 2016 13:02 - CONCLUSION: No evidence of obstruction. No MRI incompatible foreign body is identified. Chacho Bright MD Head CT 08/16/16 0000 Signed Impressions: Service Date/Time: Tuesday, August 16, 2016 09:55 - CONCLUSION: Chronic ischemic changes left frontal lobe possibly from evidence of previous ventriculostomy placement, unchanged. No acute intracranial abnormality. Gen Potter MD Modified Barium Swallow 08/15/16 0000 Signed Impressions: Service Date/Time: Monday, August 15, 2016 00:00 - CONCLUSION: See report above and speech pathology report Chacho Bright MD Physical Exam GENERAL: Poorly nourished, chronically ill appearing patient, in no apparent distress. SKIN: Old scars on arms. EYES: Pupils equal round and reactive. Extraocular motions intact. No scleral icterus. No injection or drainage. ENT: moist mucosae CARDIOVASCULAR: HS audible. No murmur. RESPIRATORY:. Breath sounds equal bilaterally. clear to auscultation GASTROINTESTINAL: Abdomen soft, non-tender, minimally distended. : maurice in place with clear yellow urine MUSCULOSKELETAL: Extremities without clubbing, cyanosis, or edema. Wasting and contractures. ? Warmth in the perineal region close to the decub ulcer. ? cellulitis vs pressure related. NEUROLOGICAL: Awake and alert. Aphasic. Communicates with yes/no LE weakness but able to flex both limbs minimally. Contractures noted. Psych: unable to assess IV line sites with no e.o infection. 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 (2) Fever, and Leucocytosis: likely non infectious at this point. 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 septic arthritis vs avascular necrosis. Plan: Follow blood cultures Follow UA/urine cultures. Continue Zosyn IV (for aspiration) Continue Vanco IV (target for cellulitis) Stat ABG Stat CXR Stat lactic acid. Ortho consult: Bilateral hip effusions in setting of high WBC and fevers ? septic arthritis vs avascular necrosis. Isolate for VRE colonization in the wound. d/w . Berna Reyes MD Oct 07, 2016 11:34
[2016-10-07] MEDS: SODIUM CHLOR 0.9% 1000 ML INJ 1,000 ML IV SCH ×2 (11:54→21:02)
--- NOTE | 2016-10-07 12:27 | HHI.PR ---
Subjective Remarks Patient sightly lethargic and sleepy, however wakes up easily tracks with eyes still febrile no diarrhea Objective Vitals Vital Signs Date Time Temp Pulse Resp B/P Pulse Ox O2 Delivery O2 Flow Rate FiO2 10/07/16 08:00 97.3 108 18 121/75 96 10/07/16 04:00 100.8 134 18 129/81 100 10/06/16 22:15 101.8 10/06/16 20:00 99.3 128 18 107/73 95 10/06/16 20:00 Room Air 10/06/16 20:00 124 10/06/16 16:00 102.7 132 18 124/84 97 I/O 10/06/16 10/06/16 10/06/16 10/07/16 10/07/16 10/07/16 07:00 15:00 23:00 07:00 15:00 23:00 Intake Total 0 ml 0 ml 749 ml Output Total 300 ml 2700 ml 450 ml 400 ml Balance -300 ml -2700 ml -450 ml 349 ml Intake Oral 0 ml 0 ml 0 ml IV Total 749 ml Output Urine Total 300 ml 2200 ml 450 ml 400 ml Stool Total 500 ml 0 ml # Bowel Movements 1 Result Diagram: 10/06/16 0600 10/07/16 0559 Imaging Last Impressions Lower Extremity Ultrasound 10/06/16 0000 Signed Impressions: Service Date/Time: September 17:29 - CONCLUSION: Normal examination. Josafat Meyer MD CT Angiography 10/06/16 0000 Signed Impressions: Service Date/Time: September 20:31 - CONCLUSION: Minimal right upper lobe infiltrate and basilar atelectasis. No evidence of pulmonary embolism.. Josafat Meyer MD Abdomen/Pelvis CT 10/06/16 0000 Signed Impressions: Service Date/Time: September 20:31 - CONCLUSION: No evidence of pelvic abscess. Josafat Meyer MD Chest X-Ray 10/05/16 0000 Signed Impressions: Service Date/Time: Wednesday, October 05, 2016 17:12 - CONCLUSION: No acute disease. Baldev Vu MD Upper Extremity Ultrasound 09/28/16 0000 Signed Impressions: Service Date/Time: Wednesday, September 28, 2016 19:15 - CONCLUSION: 1. Occlusive superficial thrombosis in the left cephalic vein near the antecubital fossa. No deep venous thrombosis. Sumit Bourgeois MD Renal Ultrasound 08/28/16 0000 Signed Impressions: Service Date/Time: Sunday, August 28, 2016 20:03 - CONCLUSION: Mild increased echotexture of both kidneys. Baldev uV MD Lumbar Puncture Fluoroscopy 08/17/16 0000 Signed Impressions: Service Date/Time: Wednesday, August 17, 2016 12:26 - CONCLUSION: Uncomplicated fluoroscopically guided lumbar puncture. Vishal Beckford Jr., MD Brain MRI 08/17/16 0000 Signed Impressions: Service Date/Time: Wednesday, August 17, 2016 13:28 - CONCLUSION: Remote long-standing areas of abnormality in the brainstem and middle cerebellar peduncle consistent with remote infarcts or contusion. No acute intracranial abnormality. Chacho Bright MD Abdomen X-Ray 08/17/16 0000 Signed Impressions: Service Date/Time: Wednesday, August 17, 2016 13:02 - CONCLUSION: No evidence of obstruction. No MRI incompatible foreign body is identified. Chacho Bright MD Head CT 08/16/16 0000 Signed Impressions: Service Date/Time: Tuesday, August 16, 2016 09:55 - CONCLUSION: Chronic ischemic changes left frontal lobe possibly from evidence of previous ventriculostomy placement, unchanged. No acute intracranial abnormality. Gen Potter MD Modified Barium Swallow 08/15/16 0000 Signed Impressions: Service Date/Time: Monday, August 15, 2016 00:00 - CONCLUSION: See report above and speech pathology report Chacho Bright MD Objective Remarks General: Seems to be gurgling when sleeping, lethargic, otherwise no respiratory distress. Heart: Regular rate and rhythm. No murmur. Lungs: Scattered rhonchi. Breathing is nonlabored. Abdomen: Soft, nontender, nondistended. PEG C/D/I no discharge observed. Extremities: No lower extremity edema. Psych: Alert, nonverbal. Procedures 07/19/16 EGD with PEG tube placement 09/27/16 colonoscopy Medications and IVs Current Medications Medications (Trade) Dose Ordered Sig/Beau Route Start Time Stop Time Status Last Admin (Tylenol) 650 mg Q4H PRN PO 08/13/16 14:00 10/07/16 06:22 (Tylenol Supp) 650 mg Q6H PRN RECTAL 08/15/16 16:30 09/06/16 20:06 (PROzac) 10 mg DAILY PO 08/24/16 09:00 10/07/16 08:18 (Lovenox Inj) 40 mg Q24H SQ 09/02/16 09:00 Hold 09/25/16 08:30 (Zofran Liq) 4 mg Q6H PRN PEG 09/11/16 16:00 (Miralax) 17 gm DAILY PRN PEG 09/11/16 16:00 (Santyl Oint) 1 applic DAILY TOP 09/14/16 16:00 10/06/16 09:00 (D50w (Vial) Inj) 25 ml UNSCH PRN IV PUSH 09/25/16 16:15 (Glucagon Inj) 1 mg UNSCH PRN OTHER 09/25/16 16:15 (NovoLIN R SUPPLEMENTAL SCALE) 1 Q6H SQ 09/25/16 17:00 10/07/16 06:24 (Pill Splitter) 1 ea UNSCH PRN OTHER 09/26/16 09:00 (Prevacid Odt) 30 mg BID NG 09/30/16 10:15 10/07/16 08:18 Acetaminophen/ Hydrocodone Bitart 1 tab 1 tab Q4H PRN PEG 10/02/16 13:00 10/07/16 06:26 (Zosyn 3.375 Gm Premix) 50 ml @ 100 mls/hr Q6H IV 10/02/16 14:00 10/07/16 08:19 Metoprolol Tartrate 25 mg 25 mg Q12HR PO 10/04/16 21:00 10/07/16 08:19 (NS 1000 ml Inj) 1,000 ml @ 100 mls/hr Q10H IV 10/05/16 11:15 10/06/16 22:12 (Motrin Liq) 200 mg Q6H PRN PEG 10/07/16 01:00 Urinary Catheter: No Vascular Central Line Catheter: No A/P Problem List: (1) Sepsis ICD Code: A41.9 Status: Acute Plan: Initially patient presented with hypotension and shock and severe sepsis thought to be secondary to a right upper lobe pneumonia. Patient was admitted to intensive care unit and initially treated by the sales and service advisor. Patient still febrile, tachycardic, wbc trending up. ua on 10/05 negative c diff negative x 2 last 09/25 HIV negative x2 CSF with increased protein and csf' C. difficile negative 3, last test on 10/07/16. Discussed with Dr Reyes -there is no clear source for sepsis at this time. CT abdomen and pelvis - shows bilateral hip joint effusions. Orthopedic surgery consulted by ID. CTA chest shows minimal right upper lobe infiltrate and basilar atelectasis. No evidence of PE. Dopplers of the lower extremities ruled out DVT. Fever could be non infectious - neurology consulted by ID. Continue tylenol ABG ordered by Dr. Reyes shows a pH of 7.4, PCO2 37.3 and PO2 of 63.9. Chest x-ray ordered stat. Lactic acid ordered as well. Will follow. I will increase the rate of IV fluids to 100 MLS per hour. Continue broad-spectrum antibiotics as per ID. (2) Encephalopathy ICD Code: G93.40 Status: Resolved Plan: Patient seems slightly lethargic. Possibly secondary to sepsis. Source not very clear at this point. 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 Avoid sedative medications. Patient has history of frontal lobe CVA. Patient is nonverbal and is alert and answers questions by nodding his head. Neurology consulted for evaluation. Patient had an EEG which was abnormal showing generalized slowing suggestive of mild to moderate diffuse disturbance of cerebral function. No epileptiform features present. (4) GI bleed ICD Code: K92.2 Status: Resolved Plan: GI consulted for dysphagia. EGD and PEG tube placement was performed on 08/19/16. A second EGD and PEG tube revision was performed on 09/25/16. Colonoscopy performed on 09/27/16 showed an ascending colon ulcer. Pathology is negative for malignant cells. H&H is a stable. Continue to monitor CBC. Continue Lansoprazole via NG tube. (5) HCAP (healthcare-associated pneumonia) ICD Code: J18.9 Status: Resolved Plan: Patient being treated empirically for right upper lobe pna. Chest x-ray obtained on September 25 showed a developing infiltrate in the right upper lobe which was not present in previous x-rays on same hospitalization. CTA chest obtained on 10/06/16 shows improving right upper lobe infiltrate. (6) UTI (urinary tract infection) ICD Code: N39.0 Status: Resolved Plan: Patient status post treatment for UTI. Status post treatment with antibiotics. Urine culture on 08/26/16 showed Daphney papulosis. (7) Leucocytosis ICD Code: D72.829 Status: Acute Plan: Likely due to sepsis syndrome. WBC trending up from 18.9-23.2. Continue to monitor CBC with differential. (8) Fever ICD Code: R50.9 Status: Acute Plan: Patient is still febrile. Unclear etiology at this point. Could be secondary to Behcet's syndrome. There is bilateral hip joint effusions, consult orthopedic surgery. Right upper lobe infiltrate seems to be improving. Assessment and Plan GI proph - PPI DVT proph - SCD's, no chemoprophylaxis given recent GI bleed. Discharge Planning Continue to monitor in the medical floor Problem Qualifiers (1) GI bleed: Qualified Code: K92.2 - Gastrointestinal hemorrhage, unspecified gastrointestinal hemorrhage type (2) UTI (urinary tract infection): Qualified Code: N30.00 - Acute cystitis without hematuria Stephan Garcia MD Oct 07, 2016 12:27
[2016-10-07 12:31] LABS: AUTOMATED NEUTROPHIL # 21.1 TH/MM3 (1.8-7.7); BASOPHIL # 0.1 TH/MM3 (0-0.2); BASOPHIL % 0.2 % (0.0-2.0); EOSINOPHIL % 0.1 % (0.0-4.0); HEMATOCRIT 35.9 % (39.0-51.0); HEMOGLOBIN 11.4 GM/DL (13.0-17.0); MEAN CELL VOLUME 88.4 FL (80.0-100.0); MEAN CORPUSCULAR HEMOGLOBIN 28.1 PG (27.0-34.0); MEAN CORPUSCULAR HGB CONC 31.8 % (32.0-36.0); MEAN PLATELET VOLUME 8.1 FL (7.0-11.0); MONO % 5.6 % (0.0-8.0); MONOCYTE # 1.4 TH/MM3 (0-0.9); NEUT % 86.1 % (16.0-70.0); PLATELET COUNT 539 TH/MM3 (150-450); RED BLOOD COUNT 4.06 MIL/MM3 (4.50-5.90); RED CELL DISTRIBUTION WIDTH 16.4 % (11.6-17.2); WHITE BLOOD COUNT 24.5 TH/MM3 (4.0-11.0)
--- NOTE | 2016-10-07 12:50 | RADRPT ---
EXAM DATE/TIME: 10/07/2016 12:09 [facility] COMPARISON: CHEST SINGLE AP, October 05, 2016, 17:12. INDICATIONS : Short of breath, evaluate pneumonia MEDICAL HISTORY : Stroke. Cardiovascular disease. SURGICAL HISTORY : feeding tube ENCOUNTER: Subsequent ACUITY: 1 week PAIN SCORE: Non-responsive. LOCATION: Bilateral chest FINDINGS: A single view of the chest demonstrates the lungs to be symmetrically aerated without evidence of mas s, infiltrate or effusion. The cardiomediastinal contours are unremarkable. Osseous structures are intact. CONCLUSION: No acute disease. Baldev Vu MD on October 07, 2016 at 12:48 Board Certified Radiologist. This report was verified electronically.
[2016-10-07] MEDS: IBUPROFEN SUSP 100 MG/5 ML UDC PEG PRN (20:34)
[2016-10-08] VITALS (7 sets, daily range): BP systolic 107–131; BP diastolic 62–80; PULSE 107–136; RESP 20–26; TEMP 99–102.8; O2SAT 93–100
[2016-10-08] MEDS: PIPERACIL-TAZO 3.375 GM PREMIX 50 ML IV SCH ×3 (01:33→14:26)
[2016-10-08] MEDS: ACETAMINOPHEN/HYDROcodone 325 MG/5 MG TAB PEG PRN (02:18)
[2016-10-08] MEDS: INSULIN NovoLIN REGULAR SUPPLEMENTAL SCALE SQ SCH ×4 (05:00→23:00)
[2016-10-08] MEDS: ACETAMINOPHEN 325 MG TAB PO PRN ×3 (05:21→21:37)
[2016-10-08] MEDS: SODIUM CHLOR 0.9% 1000 ML INJ 1,000 ML IV SCH ×3 (07:02→20:24)
[2016-10-08] MEDS: IBUPROFEN SUSP 100 MG/5 ML UDC PEG PRN ×2 (08:44→20:19)
[2016-10-08] MEDS: FLUoxetine HCL 10 MG CAP PO SCH (08:45)
[2016-10-08] MEDS: METOPROLOL TARTRATE 25 MG TAB PO SCH ×2 (08:45→21:44)
[2016-10-08] MEDS: LANSOPRAZOLE SOLUTAB 30 MG TAB NG SCH ×2 (08:45→20:23)
[2016-10-08] MEDS: COLLAGENASE OINT 30 GM TUBE TOP SCH (09:00)
[2016-10-08 09:14] LABS: AUTOMATED NEUTROPHIL # 15.8 TH/MM3 (1.8-7.7); BASOPHIL # 0.1 TH/MM3 (0-0.2); BASOPHIL % 0.3 % (0.0-2.0); EOSINOPHIL % 0.3 % (0.0-4.0); HEMATOCRIT 30.9 % (39.0-51.0); LYMPHOCYTE # 1.5 TH/MM3 (1.0-4.8); MEAN CELL VOLUME 86.8 FL (80.0-100.0); MEAN CORPUSCULAR HEMOGLOBIN 28.2 PG (27.0-34.0); MEAN CORPUSCULAR HGB CONC 32.4 % (32.0-36.0); MEAN PLATELET VOLUME 8.8 FL (7.0-11.0); MONO % 4.5 % (0.0-8.0); MONOCYTE # 0.8 TH/MM3 (0-0.9); NEUT % 86.9 % (16.0-70.0); PLATELET COUNT 469 TH/MM3 (150-450); RED BLOOD COUNT 3.57 MIL/MM3 (4.50-5.90); RED CELL DISTRIBUTION WIDTH 16.3 % (11.6-17.2); WHITE BLOOD COUNT 18.2 TH/MM3 (4.0-11.0)
--- NOTE | 2016-10-08 12:12 | PD.CONS ---
cc: London Boles MD HPI Service Orthopedic Surgeons Consult Requested By Dr. Reyes Reason for Consult Bilateral hip effusions Primary Care Physician No Primary Care Physician Admission Diagnosis sepsis UTI, Diagnoses: (1) Sepsis (2) Encephalopathy (3) Neurologic type Behcet's syndrome (4) GI bleed (5) HCAP (healthcare-associated pneumonia) (6) UTI (urinary tract infection) (7) Leucocytosis (8) Fever Chief Complaint: N/A History of Present Illness 46-year-old rather unfortunate male with known history of brain abscess, frontal CVA, neuro Behcet's syndrome who was originally admitted to the hospital because of failure to thrive, decreased oral intake. Patient initial workup indicated sepsis with urinary tract infection. Patient was treated for that and was doing well. GI was consulted in which place a PEG tube for feeding for continued management and care. Patient does have sacral decubitus which is being managed by wound care nursing staff. Patient was in [place] for long-term care because of unable to place the patient in a facility. Patient was doing well until today when nursing staff notified attending physician that patient had a rather significant lower GI bleed with copious bright red blood, maroon blood clots, melena. At that time patient was rather tachycardic up to 148, blood pressure was taken after that and found to be 94/ 69. Temperature 101.1. Because of those reasons patient was transferred to ICU for stabilization. Patient was given 1 L fluid bolus. Blood pressure was monitored closely. Workup was entertained for sepsis secondary to the fever. Workup did indicate significant leukocytosis, chest x-ray with right upper lung consolidation. GI was called by attending team and transferred to main hospital due to the acute GI bleed. Patient has been started on empiric antibiotics include vancomycin and Zosyn. He currently is on Piperacillin. He has maintained an elevated white blood cell count and a low-grade temperature. Infectious disease has been involved in his care. He recent underwent a CT scan of the abdomen and pelvis and it was noted he had bilateral small hip joint effusions. Orthopedic consultation was therefore requested. Review of Systems Reviewed and well outlined in the chart Past Family Social History Past Medical History Neuro-Behcet's syndrome diagnosed at [facility] Left frontal CVA, November 2015 Mural thrombus Brain abscess in 2015 Meningitis Hypertension Diabetes mellitus type II Bedbound state Malnutrition . Past Surgical History PEG tube placement . Allergies: Coded Allergies: *MDRO Multi-Drug Resistant Organism (Verified Adverse Reaction, Unknown, ) VRE (buttock)-09/20/16 Uncoded Allergies: ADHESIVE TAPE (Allergy, Severe, 09/21/16) BLISTERS Active Ordered Medications Current Medications Medications (Trade) Dose Ordered Sig/Beau Route Start Time Stop Time Status Last Admin (Tylenol) 650 mg Q4H PRN PO 08/13/16 14:00 10/08/16 05:21 (Tylenol Supp) 650 mg Q6H PRN RECTAL 08/15/16 16:30 09/06/16 20:06 (PROzac) 10 mg DAILY PO 08/24/16 09:00 10/08/16 08:45 (Lovenox Inj) 40 mg Q24H SQ 09/02/16 09:00 Hold 09/25/16 08:30 (Zofran Liq) 4 mg Q6H PRN PEG 09/11/16 16:00 (Miralax) 17 gm DAILY PRN PEG 09/11/16 16:00 (Santyl Oint) 1 applic DAILY TOP 09/14/16 16:00 10/07/16 21:58 (D50w (Vial) Inj) 25 ml UNSCH PRN IV PUSH 09/25/16 16:15 (Glucagon Inj) 1 mg UNSCH PRN OTHER 09/25/16 16:15 (NovoLIN R SUPPLEMENTAL SCALE) 1 Q6H SQ 09/25/16 17:00 10/07/16 23:00 (Pill Splitter) 1 ea UNSCH PRN OTHER 09/26/16 09:00 (Prevacid Odt) 30 mg BID NG 09/30/16 10:15 10/08/16 08:45 Acetaminophen/ Hydrocodone Bitart 1 tab 1 tab Q4H PRN PEG 10/02/16 13:00 10/08/16 02:18 (Zosyn 3.375 Gm Premix) 50 ml @ 100 mls/hr Q6H IV 10/02/16 14:00 10/08/16 08:46 Metoprolol Tartrate 25 mg 25 mg Q12HR PO 10/04/16 21:00 10/08/16 08:45 (NS 1000 ml Inj) 1,000 ml @ 100 mls/hr Q10H IV 10/05/16 11:15 10/08/16 07:02 (Motrin Liq) 200 mg Q6H PRN PEG 10/07/16 01:00 10/08/16 08:44 Reported Meds & Active Scripts Active Active Prescriptions or Reported Medications Unobtainable Family History Unable to obtain from the patient secondary to clinical condition. . Social History Unable to obtain from the patient, however EMR reports no tobacco, alcohol, or illicit drug use. Physical Exam Vital Signs Vital Signs Date Time Temp Pulse Resp B/P Pulse Ox O2 Delivery O2 Flow Rate FiO2 10/08/16 08:00 99.9 126 22 126/74 97 10/08/16 05:20 99.0 120 20 131/80 100 10/07/16 23:46 98.0 88 20 114/69 98 10/07/16 21:57 101.1 10/07/16 20:35 Room Air 10/07/16 20:00 99.5 135 20 141/83 99 10/07/16 20:00 134 10/07/16 16:00 99.8 138 18 124/81 96 10/07/16 12:00 99.3 124 18 127/74 96 Physical Exam The patient's examination is very limited secondary to his mental status. He is lying partially on his left side with both hips flexed and both knees flexed. He does have some contracture. He does not appear to have significant discomfort with passive range of motion within the limits of its contracture. There is no overlying skin change or swelling. Neurological testing is unobtainable. He apparently does have a sacral decubitus which has been followed and was not evaluated. Laboratory Laboratory Tests Test 10/07/16 10/08/16 12:10 08:03 White Blood Count 24.5 18.2 Red Blood Count 4.06 3.57 Hemoglobin 11.4 10.0 Hematocrit 35.9 30.9 Mean Corpuscular Volume 88.4 86.8 Mean Corpuscular Hemoglobin 28.1 28.2 Mean Corpuscular Hemoglobin 31.8 32.4 Concent Red Cell Distribution Width 16.4 16.3 Platelet Count 539 469 Mean Platelet Volume 8.1 8.8 Neutrophils (%) (Auto) 86.1 86.9 Lymphocytes (%) (Auto) 8.0 8.0 Monocytes (%) (Auto) 5.6 4.5 Eosinophils (%) (Auto) 0.1 0.3 Basophils (%) (Auto) 0.2 0.3 Neutrophils # (Auto) 21.1 15.8 Lymphocytes # (Auto) 2.0 1.5 Monocytes # (Auto) 1.4 0.8 Eosinophils # (Auto) 0.0 0.0 Basophils # (Auto) 0.1 0.1 CBC Comment DIFF FINAL DIFF FINAL Differential Comment Lactic Acid Level 1.9 Date/Time Procedure Status Source Growth 10/05/16 14:38 Aerobic Blood Culture - Preliminary Resulted Blood Peripheral Gram Positive Cocci 10/05/16 14:38 Anaerobic Blood Culture - Preliminary Resulted Blood Peripheral NO GROWTH IN 3 DAYS Result Diagram: 10/08/16 0803 10/07/16 0559 Imaging Last 72 hours Impressions Chest X-Ray 10/07/16 0000 Signed Impressions: Service Date/Time: Friday, October 07, 2016 12:09 - CONCLUSION: No acute disease. Baldev Vu MD Lower Extremity Ultrasound 10/06/16 0000 Signed Impressions: Service Date/Time: September 17:29 - CONCLUSION: Normal examination. Josafat Meyer MD CT Angiography 10/06/16 0000 Signed Impressions: Service Date/Time: September 20:31 - CONCLUSION: Minimal right upper lobe infiltrate and basilar atelectasis. No evidence of pulmonary embolism.. Josafat Meyer MD Abdomen/Pelvis CT 10/06/16 0000 Signed Impressions: Service Date/Time: September 20:31 - CONCLUSION: No evidence of pelvic abscess. Josafat Meyer MD Assessment & Plan Problem List: (1) Fever (2) Neurologic type Behcet's syndrome (3) UTI (urinary tract infection) (4) HCAP (healthcare-associated pneumonia) (5) Encephalopathy (6) Sepsis Assessment and Plan Review of the CT scan does not reveal any significant fluid collection to suggest an abscess. There is no obvious evidence of avascular necrosis. It would be rare to have bilateral septic arthritis of the hips. If there is a clinical concern that the hips are the source of his symptomatology consider an interventional radiology consult for aspiration and culture. No acute orthopedic intervention at the present time although possible in the future if the procedure is completed and is positive for septic joint. London Boles MD Oct 08, 2016 12:12
--- NOTE | 2016-10-08 13:07 | HHI.PR ---
Review/Management Daily Summary 08/18 discussed with RN, stable overall data seen, lp abnormal csf meningites/encephalitis? 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 will also defer to Dr. Jessica next week d/w medical yesterday i.d. following Subjective Subjective Comments No acute events reported xcover Active Medications Current Medications Medications (Trade) Dose Ordered Sig/Beau Route Start Time Stop Time Status Last Admin (Tylenol) 650 mg Q4H PRN PO 08/13/16 14:00 10/08/16 05:21 (Tylenol Supp) 650 mg Q6H PRN RECTAL 08/15/16 16:30 09/06/16 20:06 (PROzac) 10 mg DAILY PO 08/24/16 09:00 10/08/16 08:45 (Lovenox Inj) 40 mg Q24H SQ 09/02/16 09:00 Hold 09/25/16 08:30 (Zofran Liq) 4 mg Q6H PRN PEG 09/11/16 16:00 (Miralax) 17 gm DAILY PRN PEG 09/11/16 16:00 (Santyl Oint) 1 applic DAILY TOP 09/14/16 16:00 10/07/16 21:58 (D50w (Vial) Inj) 25 ml UNSCH PRN IV PUSH 09/25/16 16:15 (Glucagon Inj) 1 mg UNSCH PRN OTHER 09/25/16 16:15 (NovoLIN R SUPPLEMENTAL SCALE) 1 Q6H SQ 09/25/16 17:00 10/07/16 23:00 (Pill Splitter) 1 ea UNSCH PRN OTHER 09/26/16 09:00 (Prevacid Odt) 30 mg BID NG 09/30/16 10:15 10/08/16 08:45 Acetaminophen/ Hydrocodone Bitart 1 tab 1 tab Q4H PRN PEG 10/02/16 13:00 10/08/16 02:18 (Zosyn 3.375 Gm Premix) 50 ml @ 100 mls/hr Q6H IV 10/02/16 14:00 10/08/16 08:46 Metoprolol Tartrate 25 mg 25 mg Q12HR PO 10/04/16 21:00 10/08/16 08:45 (NS 1000 ml Inj) 1,000 ml @ 100 mls/hr Q10H IV 10/05/16 11:15 10/08/16 07:02 (Motrin Liq) 200 mg Q6H PRN PEG 10/07/16 01:00 10/08/16 08:44 Allergies Allergies Coded Allergies *MDRO Multi-Drug Resistant Organism (Verified Adverse Reaction, Unknown, ) Uncoded Allergies ADHESIVE TAPE ( Allergy, Severe, 09/21/16) Review of Systems All other ROS: ROS reviewed as documented in chart Exam I&O / VS 10/07/16 10/07/16 10/08/16 15:00 23:00 07:00 Intake Total 0 ml 2765 ml 1237 ml Output Total 1600 ml 250 ml Balance -1600 ml 2765 ml 987 ml Intake Oral 0 ml IV Total 1404 ml 732 ml Tube Feeding 1241 ml 385 ml Tube Irrigant 120 ml 120 ml Output Urine Total 1300 ml 250 ml Stool Total 300 ml Vital Signs Date Time Temp Pulse Resp B/P Pulse Ox O2 Delivery O2 Flow Rate FiO2 10/08/16 12:00 99.5 107 22 107/76 93 10/08/16 08:00 99.9 126 22 126/74 97 10/08/16 05:20 99.0 120 20 131/80 100 10/07/16 23:46 98.0 88 20 114/69 98 10/07/16 21:57 101.1 10/07/16 20:35 Room Air 10/07/16 20:00 99.5 135 20 141/83 99 10/07/16 20:00 134 10/07/16 16:00 99.8 138 18 124/81 96 Exam Comments getting cleaned Objective Micro and Labs Laboratory Tests Test 10/08/16 08:03 White Blood Count 18.2 Red Blood Count 3.57 Hemoglobin 10.0 Hematocrit 30.9 Mean Corpuscular Volume 86.8 Mean Corpuscular Hemoglobin 28.2 Mean Corpuscular Hemoglobin 32.4 Concent Red Cell Distribution Width 16.3 Platelet Count 469 Mean Platelet Volume 8.8 Neutrophils (%) (Auto) 86.9 Lymphocytes (%) (Auto) 8.0 Monocytes (%) (Auto) 4.5 Eosinophils (%) (Auto) 0.3 Basophils (%) (Auto) 0.3 Neutrophils # (Auto) 15.8 Lymphocytes # (Auto) 1.5 Monocytes # (Auto) 0.8 Eosinophils # (Auto) 0.0 Basophils # (Auto) 0.1 CBC Comment DIFF FINAL Differential Comment Date/Time Procedure Status Source Growth 10/05/16 14:38 Aerobic Blood Culture - Preliminary Resulted Blood Peripheral Staphylococcus Epidermidis 10/05/16 14:38 Anaerobic Blood Culture - Preliminary Resulted Blood Peripheral NO GROWTH IN 3 DAYS Juan Antonio Claudio MD Oct 08, 2016 13:07
--- NOTE | 2016-10-08 17:17 | HHI.PR ---
Subjective Remarks Still having fevers with a Tmax of 101.1 no reports of diarrhea WBC trending down still tachycardic Patient is nonverbal but is able to track with eyes and answer yes or no to questions denies any pain Objective Vitals Vital Signs Date Time Temp Pulse Resp B/P Pulse Ox O2 Delivery O2 Flow Rate FiO2 10/08/16 16:00 102.8 127 22 119/62 99 10/08/16 12:00 99.5 107 22 107/76 93 10/08/16 08:00 99.9 126 22 126/74 97 10/08/16 05:20 99.0 120 20 131/80 100 10/07/16 23:46 98.0 88 20 114/69 98 10/07/16 21:57 101.1 10/07/16 20:35 Room Air 10/07/16 20:00 99.5 135 20 141/83 99 10/07/16 20:00 134 I/O 10/07/16 10/07/16 10/07/16 10/08/16 10/08/16 10/08/16 07:00 15:00 23:00 07:00 15:00 23:00 Intake Total 749 ml 0 ml 2765 ml 1237 ml 0 ml Output Total 400 ml 1600 ml 250 ml 900 ml Balance 349 ml -1600 ml 2765 ml 987 ml -900 ml Intake Oral 0 ml 0 ml 0 ml IV Total 749 ml 1404 ml 732 ml Tube Feeding 1241 ml 385 ml Tube Irrigant 120 ml 120 ml Output Urine Total 400 ml 1300 ml 250 ml 900 ml Stool Total 0 ml 300 ml # Bowel Movements 1 Result Diagram: 10/08/16 0803 10/07/16 0559 Imaging Last Impressions Chest X-Ray 10/07/16 0000 Signed Impressions: Service Date/Time: Friday, October 07, 2016 12:09 - CONCLUSION: No acute disease. Baldev Vu MD Lower Extremity Ultrasound 10/06/16 0000 Signed Impressions: Service Date/Time: September 17:29 - CONCLUSION: Normal examination. Josafat Meyer MD CT Angiography 10/06/16 0000 Signed Impressions: Service Date/Time: September 20:31 - CONCLUSION: Minimal right upper lobe infiltrate and basilar atelectasis. No evidence of pulmonary embolism.. Josafat Meyer MD Abdomen/Pelvis CT 10/06/16 0000 Signed Impressions: Service Date/Time: September 20:31 - CONCLUSION: No evidence of pelvic abscess. Josafat Meyer MD Upper Extremity Ultrasound 09/28/16 Signed Impressions: Service Date/Time: Wednesday, September 28, 2016 19:15 - CONCLUSION: 1. Occlusive superficial thrombosis in the left cephalic vein near the antecubital fossa. No deep venous thrombosis. Sumit Bourgeois MD Renal Ultrasound 08/28/16 Signed Impressions: Service Date/Time: Sunday, August 28, 2016 20:03 - CONCLUSION: Mild increased echotexture of both kidneys. Baldev Vu MD Lumbar Puncture Fluoroscopy 08/17/16 Signed Impressions: Service Date/Time: Wednesday, August 17, 2016 12:26 - CONCLUSION: Uncomplicated fluoroscopically guided lumbar puncture. Vishal Beckford Jr., MD Brain MRI 08/17/16 Signed Impressions: Service Date/Time: Wednesday, August 17, 2016 13:28 - CONCLUSION: Remote long-standing areas of abnormality in the brainstem and middle cerebellar peduncle consistent with remote infarcts or contusion. No acute intracranial abnormality. Chacho Bright MD Abdomen X-Ray 08/17/16 Signed Impressions: Service Date/Time: Wednesday, August 17, 2016 13:02 - CONCLUSION: No evidence of obstruction. No MRI incompatible foreign body is identified. Chacho Bright MD Head CT 08/16/16 0000 Signed Impressions: Service Date/Time: Tuesday, August 16, 2016 09:55 - CONCLUSION: Chronic ischemic changes left frontal lobe possibly from evidence of previous ventriculostomy placement, unchanged. No acute intracranial abnormality. Gen Potter MD Modified Barium Swallow 08/15/16 0000 Signed Impressions: Service Date/Time: Monday, August 15, 2016 00:00 - CONCLUSION: See report above and speech pathology report Chacho Bright MD Objective Remarks General: Seems to be gurgling when sleeping, lethargic, otherwise no respiratory distress. Heart: Regular rate and rhythm. No murmur. Lungs: Scattered rhonchi. Breathing is nonlabored. Abdomen: Soft, nontender, nondistended. PEG C/D/I no discharge observed. Extremities: No lower extremity edema. Psych: Alert, nonverbal. Procedures 07/19/16 EGD with PEG tube placement 09/27/16 colonoscopy Medications and IVs Current Medications Medications (Trade) Dose Ordered Sig/Beau Route Start Time Stop Time Status Last Admin (Tylenol) 650 mg Q4H PRN PO 08/13/16 14:00 10/08/16 15:55 (Tylenol Supp) 650 mg Q6H PRN RECTAL 08/15/16 16:30 09/06/16 20:06 (PROzac) 10 mg DAILY PO 08/24/16 09:00 10/08/16 08:45 (Lovenox Inj) 40 mg Q24H SQ 09/02/16 09:00 Hold 09/25/16 08:30 (Zofran Liq) 4 mg Q6H PRN PEG 09/11/16 16:00 (Miralax) 17 gm DAILY PRN PEG 09/11/16 16:00 (Santyl Oint) 1 applic DAILY TOP 09/14/16 16:00 10/07/16 21:58 (D50w (Vial) Inj) 25 ml UNSCH PRN IV PUSH 09/25/16 16:15 (Glucagon Inj) 1 mg UNSCH PRN OTHER 09/25/16 16:15 (NovoLIN R SUPPLEMENTAL SCALE) 1 Q6H SQ 09/25/16 17:00 10/07/16 23:00 (Pill Splitter) 1 ea UNSCH PRN OTHER 09/26/16 09:00 (Prevacid Odt) 30 mg BID NG 09/30/16 10:15 10/08/16 08:45 Acetaminophen/ Hydrocodone Bitart 1 tab 1 tab Q4H PRN PEG 10/02/16 13:00 10/08/16 02:18 (Zosyn 3.375 Gm Premix) 50 ml @ 100 mls/hr Q6H IV 10/02/16 14:00 10/08/16 14:26 Metoprolol Tartrate 25 mg 25 mg Q12HR PO 10/04/16 21:00 10/08/16 08:45 (NS 1000 ml Inj) 1,000 ml @ 100 mls/hr Q10H IV 10/05/16 11:15 10/08/16 16:50 (Motrin Liq) 200 mg Q6H PRN PEG 10/07/16 01:00 10/08/16 08:44 Urinary Catheter: No Vascular Central Line Catheter: No A/P Problem List: (1) Sepsis ICD Code: A41.9 Status: Acute Plan: Initially patient presented with hypotension and shock and severe sepsis thought to be secondary to a right upper lobe pneumonia. Patient was admitted to intensive care unit and initially treated by the fresh work inspector. Patient still febrile, tachycardic, wbc trending up. ua on 10/05 negative c diff negative x 2 last 09/25 HIV negative x2 CSF with increased protein and csf' C. difficile negative 3, last test on 10/07/16. Discussed with Dr Reyes -there is no clear source for sepsis at this time. CT abdomen and pelvis - shows bilateral hip joint effusions. Orthopedic surgery consulted by ID. CTA chest shows minimal right upper lobe infiltrate and basilar atelectasis. No evidence of PE. Dopplers of the lower extremities ruled out DVT. Fever could be non infectious - neurology consulted by ID. Continue tylenol ABG ordered by Dr. Reyes shows a pH of 7.4, PCO2 37.3 and PO2 of 63.9. 10/08 repeat chest x-ray ordered on 10/07/16 show no acute disease. Lactic acid normal. Orthopedic surgery consulted - as per Dr. Boles the amount of fluids in the joint is a small to suggest abscess. There is no obvious evidence of avascular necrosis as per orthopedic surgery as well, and it would be very rare to have bilateral septic arthritis. (2) Encephalopathy ICD Code: G93.40 Status: Resolved Plan: Patient's lethargy much improved. Patient is awake. Continue to monitor. 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 Avoid sedative medications. Patient has history of frontal lobe CVA. Patient is nonverbal and is alert and answers questions by nodding his head. Neurology consulted for evaluation. Patient had an EEG which was abnormal showing generalized slowing suggestive of mild to moderate diffuse disturbance of cerebral function. No epileptiform features present. Appreciate neurology evaluation and recommendations. CRP elevated. As per neurology trial of IV steroids once cleared by ID and with the. Dr. Evangelista well will defer to Dr. Jessica next week. (4) GI bleed ICD Code: K92.2 Status: Resolved Plan: GI consulted for dysphagia. EGD and PEG tube placement was performed on 08/19/16. A second EGD and PEG tube revision was performed on 09/25/16. Colonoscopy performed on 09/27/16 showed an ascending colon ulcer. Pathology is negative for malignant cells. H&H is a stable. Continue to monitor CBC. Continue Lansoprazole via PEG tube (5) HCAP (healthcare-associated pneumonia) ICD Code: J18.9 Status: Resolved Plan: Patient being treated empirically for right upper lobe pna. Chest x-ray obtained on September 25 showed a developing infiltrate in the right upper lobe which was not present in previous x-rays on same hospitalization. CTA chest obtained on 10/06/16 shows improving right upper lobe infiltrate. Continue IV Zosyn. (6) UTI (urinary tract infection) ICD Code: N39.0 Status: Resolved Plan: Patient status post treatment for UTI. Status post treatment with antibiotics. Urine culture on 08/26/16 showed Daphney papulosis. (7) Leucocytosis ICD Code: D72.829 Status: Acute Plan: Likely due to sepsis syndrome. WBC trending up from 18.9-23.2. Continue to monitor CBC with differential. (8) Fever ICD Code: R50.9 Status: Acute Plan: Patient is still febrile. Unclear etiology at this point. Could be secondary to Behcet's syndrome. There is bilateral hip joint effusions, orthogonal consulted. Right upper lobe infiltrate seems to be improving. (9) Effusion of hip joint ICD Code: M25.459 Status: Acute Plan: Joint effusion noted on CT scan. Orthopedic surgery consulted, believes low probability of being septic arthritis. I will order a consultation with invasive radiology to have a joint effusion. Assessment and Plan GI proph - PPI DVT proph - SCD's, no chemoprophylaxis given recent GI bleed. Discharge Planning Continue to monitor in the medical floor Problem Qualifiers (1) GI bleed: Qualified Code: K92.2 - Gastrointestinal hemorrhage, unspecified gastrointestinal hemorrhage type (2) UTI (urinary tract infection): Qualified Code: N30.00 - Acute cystitis without hematuria (3) Effusion of hip joint: Qualified Code: M25.459 - Effusion of hip joint, unspecified laterality Stephan Garcia MD Oct 08, 2016 17:17
--- NOTE | 2016-10-08 19:08 | HHI.IDPN ---
Note Infectious Disease Note ID coverage. Notes reviewed. is a 46 AAM with NeuroBehcet's disease, difficult placement and not safe discharge so continues to reside at [facility]. Patient has high temp 102. Also has tremors. opens eyes but not following commands, Antibiotics Zosyn IV Lines Line sites with no e.o infection Past Medical History reviewed Allergies: Coded Allergies: *MDRO Multi-Drug Resistant Organism (Verified Adverse Reaction, Unknown, ) VRE (buttock)-09/20/16 Uncoded Allergies: ADHESIVE TAPE (Allergy, Severe, 09/21/16) BLISTERS Objective Vital Signs Date Time Temp Pulse Resp B/P Pulse Ox O2 Delivery O2 Flow Rate FiO2 10/08/16 16:00 102.8 127 22 119/62 99 10/08/16 12:00 99.5 107 22 107/76 93 10/08/16 08:45 Room Air 10/08/16 08:00 99.9 126 22 126/74 97 10/08/16 05:20 99.0 120 20 131/80 100 10/07/16 23:46 98.0 88 20 114/69 98 10/07/16 21:57 101.1 10/07/16 20:35 Room Air 10/07/16 20:00 99.5 135 20 141/83 99 10/07/16 20:00 134 10/07/16 10/07/16 10/08/16 15:00 23:00 07:00 Intake Total 0 ml 2765 ml 1237 ml Output Total 1600 ml 250 ml Balance -1600 ml 2765 ml 987 ml Intake Oral 0 ml IV Total 1404 ml 732 ml Tube Feeding 1241 ml 385 ml Tube Irrigant 120 ml 120 ml Output Urine Total 1300 ml 250 ml Stool Total 300 ml Laboratory Tests Test 10/07/16 10/08/16 12:10 08:03 White Blood Count 24.5 TH/MM3 18.2 TH/MM3 Red Blood Count 4.06 MIL/MM3 3.57 MIL/MM3 Hemoglobin 11.4 GM/DL 10.0 GM/DL Hematocrit 35.9 % 30.9 % Mean Corpuscular Volume 88.4 FL 86.8 FL Mean Corpuscular Hemoglobin 28.1 PG 28.2 PG Mean Corpuscular Hemoglobin 31.8 % 32.4 % Concent Red Cell Distribution Width 16.4 % 16.3 % Platelet Count 539 TH/MM3 469 TH/MM3 Mean Platelet Volume 8.1 FL 8.8 FL Neutrophils (%) (Auto) 86.1 % 86.9 % Lymphocytes (%) (Auto) 8.0 % 8.0 % Monocytes (%) (Auto) 5.6 % 4.5 % Eosinophils (%) (Auto) 0.1 % 0.3 % Basophils (%) (Auto) 0.2 % 0.3 % Neutrophils # (Auto) 21.1 TH/MM3 15.8 TH/MM3 Lymphocytes # (Auto) 2.0 TH/MM3 1.5 TH/MM3 Monocytes # (Auto) 1.4 TH/MM3 0.8 TH/MM3 Eosinophils # (Auto) 0.0 TH/MM3 0.0 TH/MM3 Basophils # (Auto) 0.1 TH/MM3 0.1 TH/MM3 CBC Comment DIFF FINAL DIFF FINAL Differential Comment Laboratory Tests Test 10/07/16 10/07/16 05:59 12:10 Sodium Level 135 MEQ/L Potassium Level 4.1 MEQ/L Chloride Level 100 MEQ/L Carbon Dioxide Level 25.9 MEQ/L Anion Gap 9 MEQ/L Blood Urea Nitrogen 13 MG/DL Creatinine 0.77 MG/DL Estimat Glomerular Filtration 133 ML/MIN Rate Random Glucose 133 MG/DL Calcium Level 9.6 MG/DL Phosphorus Level 2.1 MG/DL Magnesium Level 2.0 MG/DL Total Bilirubin 0.4 MG/DL Aspartate Amino Transf 15 U/L (AST/SGOT) Alanine Aminotransferase 24 U/L (ALT/SGPT) Alkaline Phosphatase 88 U/L C-Reactive Protein 19.90 MG/DL Total Protein 8.2 GM/DL Albumin 2.6 GM/DL Lactic Acid Level 1.9 mmol/L Imaging Chest X-Ray 10/07/16 0000 Signed Impressions: Service Date/Time: Friday, October 07, 2016 12:09 - CONCLUSION: No acute disease. Baldev Vu MD Upper Extremity Ultrasound 09/28/16 0000 Signed Impressions: Service Date/Time: Wednesday, September 28, 2016 19:15 - CONCLUSION: 1. Occlusive superficial thrombosis in the left cephalic vein near the antecubital fossa. No deep venous thrombosis. Sumit Bourgeois MD Chest X-Ray 09/28/16 0000 Signed Impressions: Service Date/Time: Wednesday, September 28, 2016 03:32 - CONCLUSION: Unchanged right upper lobe infiltrate. Vishal Beckford Jr., MD Abdomen/Pelvis CT 09/26/16 Signed Impressions: Service Date/Time: Monday, September 26, 2016 15:05 - CONCLUSION: No definite acute CT findings in the abdomen or pelvis. Josafat Meyer MD Renal Ultrasound 08/28/16 Signed Impressions: Service Date/Time: Sunday, August 28, 2016 20:03 - CONCLUSION: Mild increased echotexture of both kidneys. Baldev Vu MD Lumbar Puncture Fluoroscopy 08/17/16 Signed Impressions: Service Date/Time: Wednesday, August 17, 2016 12:26 - CONCLUSION: Uncomplicated fluoroscopically guided lumbar puncture. Vishal Beckford Jr., MD Brain MRI 08/17/16 Signed Impressions: Service Date/Time: Wednesday, August 17, 2016 13:28 - CONCLUSION: Remote long-standing areas of abnormality in the brainstem and middle cerebellar peduncle consistent with remote infarcts or contusion. No acute intracranial abnormality. Chacho Bright MD Abdomen X-Ray 08/17/16 Signed Impressions: Service Date/Time: Wednesday, August 17, 2016 13:02 - CONCLUSION: No evidence of obstruction. No MRI incompatible foreign body is identified. Chacho Bright MD Head CT 08/16/16 0000 Signed Impressions: Service Date/Time: Tuesday, August 16, 2016 09:55 - CONCLUSION: Chronic ischemic changes left frontal lobe possibly from evidence of previous ventriculostomy placement, unchanged. No acute intracranial abnormality. Gen Potter MD Modified Barium Swallow 08/15/16 0000 Signed Impressions: Service Date/Time: Monday, August 15, 2016 00:00 - CONCLUSION: See report above and speech pathology report Chacho Bright MD Physical Exam GENERAL: Poorly nourished, chronically ill appearing patient, in no apparent distress. SKIN: Old scars on arms. EYES: Pupils equal round and reactive. Extraocular motions intact. No scleral icterus. No injection or drainage. ENT: moist mucosae CARDIOVASCULAR: HS audible. No murmur. RESPIRATORY: Breath sounds equal bilaterally. clear to auscultation GASTROINTESTINAL: Abdomen soft, non-tender, minimally distended. : maurice in place with clear yellow urine MUSCULOSKELETAL: Extremities without clubbing, cyanosis, or edema. Wasting and contractures. SKIN: No rash. NEUROLOGICAL: Awake, Tremors of the UE and twitching at the left calf.. Psych: unable to assess IV line sites with no e.o infection. 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 (2) Fever, and Leucocytosis: likely non infectious at this point. Cultures are negative. 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 septic arthritis vs avascular necrosis. Plan: Follow blood cultures Stop Zosyn Continue Vanco IV (target for cellulitis) Isolate for VRE colonization in the wound. Michael Hallman MD Oct 08, 2016 19:08
[2016-10-08] MEDS: VANCOMYCIN INJ 1,300 MG in SODIUM CHLORID 0.9% 500 ML INJ 500 ML IV SCH (20:19)
[2016-10-09] VITALS (9 sets, daily range): BP systolic 109–126; BP diastolic 66–78; PULSE 88–135; RESP 16–34; TEMP 98.4–102.9; O2SAT 96–100
[2016-10-09] MEDS: INSULIN NovoLIN REGULAR SUPPLEMENTAL SCALE SQ SCH ×4 (05:00→23:00)
[2016-10-09 07:11] LABS: AUTOMATED NEUTROPHIL # 14.5 TH/MM3 (1.8-7.7); BASOPHIL % 0.2 % (0.0-2.0); EOSINOPHIL % 0.1 % (0.0-4.0); HEMATOCRIT 26.3 % (39.0-51.0); HEMOGLOBIN 8.5 GM/DL (13.0-17.0); LYMPH % 6.3 % (9.0-44.0); MEAN CELL VOLUME 86.4 FL (80.0-100.0); MEAN CORPUSCULAR HEMOGLOBIN 28.1 PG (27.0-34.0); MEAN CORPUSCULAR HGB CONC 32.5 % (32.0-36.0); MEAN PLATELET VOLUME 9.1 FL (7.0-11.0); MONO % 4.8 % (0.0-8.0); MONOCYTE # 0.8 TH/MM3 (0-0.9); NEUT % 88.6 % (16.0-70.0); PLATELET COUNT 428 TH/MM3 (150-450); RED BLOOD COUNT 3.04 MIL/MM3 (4.50-5.90); RED CELL DISTRIBUTION WIDTH 16.1 % (11.6-17.2); WHITE BLOOD COUNT 16.4 TH/MM3 (4.0-11.0)
[2016-10-09 07:38] LABS: ALBUMIN 2.1 GM/DL (3.4-5.0); ALKALINE PHOSPHATASE 71 U/L (45-117); ALT (GPT) 26 U/L (12-78); AST (GOT) 32 U/L (15-37); BICARBONATE 26.4 MEQ/L (21.0-32.0); BLOOD UREA NITROGEN 11 MG/DL (7-18); CALCIUM 9.2 MG/DL (8.5-10.1); CHLORIDE 103 MEQ/L (98-107); CREATININE 0.56 MG/DL (0.60-1.30); GLOMERULAR FILTRATION RATE 192 ML/MIN (>89); GLUCOSE,RANDOM 87 MG/DL (74-106); SODIUM (NA) 137 MEQ/L (136-145); TOTAL BILIRUBIN ADULT 0.3 MG/DL (0.2-1.0)
[2016-10-09] MEDS: ACETAMINOPHEN 325 MG TAB PO PRN ×2 (08:07→22:11)
[2016-10-09] MEDS: VANCOMYCIN INJ 1,300 MG in SODIUM CHLORID 0.9% 500 ML INJ 500 ML IV SCH ×2 (08:07→22:12)
[2016-10-09] MEDS: METOPROLOL TARTRATE 25 MG TAB PO SCH ×2 (08:07→22:11)
[2016-10-09] MEDS: COLLAGENASE OINT 30 GM TUBE TOP SCH (09:00)
--- NOTE | 2016-10-09 10:23 | RADRPT ---
EXAM DATE/TIME: 10/09/2016 08:37 [facility] COMPARISON: CHEST SINGLE AP, October 05, 2016, 17:12. INDICATIONS : Evaluate chest for aspiration MEDICAL HISTORY : Stroke. Cardiovascular disease. SURGICAL HISTORY : None. ENCOUNTER: Subsequent ACUITY: 1 week PAIN SCORE: Non-responsive. LOCATION: chest FINDINGS: The lungs are clear without infiltrate, nodule, or mass. There is no appreciable pleural effusion fo r technique. Heart and mediastinum are unremarkable. There is old healed fracture of the left clavic le. CONCLUSION: No acute cardiopulmonary disease. Manny Delarosa MD on October 09, 2016 at 10:21 Board Certified Radiologist. This report was verified electronically.
--- NOTE | 2016-10-09 10:25 | HHI.HP ---
HPI Service Critical Care Medicine Primary Care Physician No Primary Care Physician Admission Diagnosis sepsis UTI, Diagnosis: (1) Sepsis (2) Encephalopathy (3) Neurologic type Behcet's syndrome (4) GI bleed (5) HCAP (healthcare-associated pneumonia) (6) UTI (urinary tract infection) (7) Leucocytosis (8) Fever (9) Effusion of hip joint Travel History International Travel<30 Days: No Contact w/Intl Traveler <30 Da: No Traveled to Known Affected Are: No History of Present Illness This is a well known 46-year-old male with history of neuro-Behcet's diagnosed at [place], left frontal CVA, bedbound, nonverbal, mural thrombus, brain abscess, meningitis, hypertension, diabetes, presents for decreased oral intake over the past 23 days, and skin tear at the left upper extremity. All the information obtained from the EMR and ER physicians know as the patient is nonverbal and unable to provide any history. Apparently the patient lives at home with his sister who is his multiskill operator. She reported the patient has had decreased oral intake over the past few day during this hospitalization the patient had an EGD and PEG placement. 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 The patient was previously in ICU secondary to GI bleed with resolution and transferred to the hospitalist. Today the patient was appear to be somnolent, nonresponsive, and respiratory distress a Hallicat was called and the patient was transferred to the ICU. Patient was noted also to have an elevated temperature of 102.9. Neurology and infectious disease have been following the patient since admission to hospital. Critical care medicine was consult for management. Review of Systems ROS Limitations: Clinical Condition Past Family Social History Allergies: Coded Allergies: *MDRO Multi-Drug Resistant Organism (Verified Adverse Reaction, Unknown, ) VRE (buttock)-09/20/16 Uncoded Allergies: ADHESIVE TAPE (Allergy, Severe, 09/21/16) BLISTERS Physical Exam Vital Signs Vital Signs Date Time Temp Pulse Resp B/P Pulse Ox O2 Delivery O2 Flow Rate FiO2 10/09/16 09:49 100 Nasal Cannula 2.00 10/09/16 08:37 97 2.00 10/09/16 08:00 102.9 135 34 126/66 97 10/09/16 04:00 98.6 121 22 115/70 100 10/09/16 00:27 98.4 133 20 126/73 100 10/08/16 21:45 123/68 10/08/16 20:43 102.6 136 26 117/74 100 10/08/16 20:30 Room Air 10/08/16 20:00 136 10/08/16 16:00 102.8 127 22 119/62 99 10/08/16 12:00 99.5 107 22 107/76 93 Physical Exam GENERAL: Patient to my recumbent in bed, opens eyes to voice, and tracks SKIN: Warm and dry. HEAD: Normocephalic. EYES: No scleral icterus. No injection or drainage. NECK: Supple, trachea midline. No JVD or lymphadenopathy. CARDIOVASCULAR: Tachycardic without murmurs, gallops, or rubs. RESPIRATORY: Breath sounds equal bilaterally. No accessory muscle use. Nasal cannula at 2 L GASTROINTESTINAL: Abdomen soft, non-tender, nondistended. PEG tube in place MUSCULOSKELETAL: No cyanosis, or edema. Contractures of extremities 4. BACK: Nontender without obvious deformity. No CVA tenderness. Laboratory Laboratory Tests Test 10/09/16 10/09/16 05:19 08:22 White Blood Count 16.4 Red Blood Count 3.04 Hemoglobin 8.5 Hematocrit 26.3 Mean Corpuscular Volume 86.4 Mean Corpuscular Hemoglobin 28.1 Mean Corpuscular Hemoglobin 32.5 Concent Red Cell Distribution Width 16.1 Platelet Count 428 Mean Platelet Volume 9.1 Neutrophils (%) (Auto) 88.6 Lymphocytes (%) (Auto) 6.3 Monocytes (%) (Auto) 4.8 Eosinophils (%) (Auto) 0.1 Basophils (%) (Auto) 0.2 Neutrophils # (Auto) 14.5 Lymphocytes # (Auto) 1.0 Monocytes # (Auto) 0.8 Eosinophils # (Auto) 0.0 Basophils # (Auto) 0.0 CBC Comment DIFF FINAL Differential Comment Sodium Level 137 Potassium Level 3.7 Chloride Level 103 Carbon Dioxide Level 26.4 Anion Gap 8 Blood Urea Nitrogen 11 Creatinine 0.56 Estimat Glomerular Filtration 192 Rate Random Glucose 87 Calcium Level 9.2 Total Bilirubin 0.3 Aspartate Amino Transf 32 (AST/SGOT) Alanine Aminotransferase 26 (ALT/SGPT) Alkaline Phosphatase 71 Total Protein 7.0 Albumin 2.1 Blood Gas Puncture Site LT RADIAL Blood Gas Patient Temperature 98.6 Blood Gas HCO3 25 Blood Gas Base Excess 1.6 Blood Gas Oxygen Saturation 94 Arterial Blood pH 7.45 Arterial Blood Partial 37 Pressure CO2 Arterial Blood Partial 81 Pressure O2 Arterial Blood Oxygen Content 11.2 Arterial Blood 1.6 Carboxyhemoglobin Arterial Blood Methemoglobin 0.8 Blood Gas Hemoglobin 8.4 Blood Gas Inspired Oxygen 21 Date/Time Procedure Status Source Growth 10/05/16 14:38 Aerobic Blood Culture - Preliminary Resulted Blood Peripheral Staphylococcus Epidermidis 10/05/16 14:38 Anaerobic Blood Culture - Preliminary Resulted Blood Peripheral NO GROWTH IN 3 DAYS Result Diagram: 10/09/16 0519 10/09/16 0519 Imaging Last Impressions Chest X-Ray 10/07/16 0000 Signed Impressions: Service Date/Time: Friday, October 07, 2016 12:09 - CONCLUSION: No acute disease. Baldev Vu MD Lower Extremity Ultrasound 10/06/16 0000 Signed Impressions: Service Date/Time: September 17:29 - CONCLUSION: Normal examination. Josafat Meyer MD CT Angiography 10/06/16 0000 Signed Impressions: Service Date/Time: September 20:31 - CONCLUSION: Minimal right upper lobe infiltrate and basilar atelectasis. No evidence of pulmonary embolism.. Josafat Meyer MD Abdomen/Pelvis CT 10/06/16 0000 Signed Impressions: Service Date/Time: September 20:31 - CONCLUSION: No evidence of pelvic abscess. Josafat Meyer MD Upper Extremity Ultrasound 09/28/16 0000 Signed Impressions: Service Date/Time: Wednesday, September 28, 2016 19:15 - CONCLUSION: 1. Occlusive superficial thrombosis in the left cephalic vein near the antecubital fossa. No deep venous thrombosis. Sumit Bourgeois MD Renal Ultrasound 08/28/16 0000 Signed Impressions: Service Date/Time: Sunday, August 28, 2016 20:03 - CONCLUSION: Mild increased echotexture of both kidneys. Baldev Vu MD Lumbar Puncture Fluoroscopy 08/17/16 0000 Signed Impressions: Service Date/Time: Wednesday, August 17, 2016 12:26 - CONCLUSION: Uncomplicated fluoroscopically guided lumbar puncture. Vishal Beckford Jr., MD Brain MRI 08/17/16 0000 Signed Impressions: Service Date/Time: Wednesday, August 17, 2016 13:28 - CONCLUSION: Remote long-standing areas of abnormality in the brainstem and middle cerebellar peduncle consistent with remote infarcts or contusion. No acute intracranial abnormality. Chacho Bright MD Abdomen X-Ray 08/17/16 0000 Signed Impressions: Service Date/Time: Wednesday, August 17, 2016 13:02 - CONCLUSION: No evidence of obstruction. No MRI incompatible foreign body is identified. Chacho Bright MD Head CT 08/16/16 0000 Signed Impressions: Service Date/Time: Tuesday, August 16, 2016 09:55 - CONCLUSION: Chronic ischemic changes left frontal lobe possibly from evidence of previous ventriculostomy placement, unchanged. No acute intracranial abnormality. Gen Potter MD Modified Barium Swallow 08/15/16 0000 Signed Impressions: Service Date/Time: Monday, August 15, 2016 00:00 - CONCLUSION: See report above and speech pathology report Chacho Bright MD Last 72 hours Impressions Chest X-Ray 10/07/16 0000 Signed Impressions: Service Date/Time: Friday, October 07, 2016 12:09 - CONCLUSION: No acute disease. Baldev Vu MD Septic Shock Reassessment Heart: Regular rate and rhythm Lungs: Clear Peripheral Pulses: Bounding Right Radial Bounding Left Radial Assessment and Plan Problem List: (1) Severe sepsis ICD Code: A41.9 Status: Acute (2) GI bleed ICD Code: K92.2 Status: Resolved (3) Leucocytosis ICD Code: D72.829 Status: Acute (4) Fever ICD Code: R50.9 Status: Acute (5) Pneumonia involving right lung ICD Code: J18.9 Status: Acute (6) 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 Assessment and Plan NEUROLOGY 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 Encephalopathy H/O meningitis Left frontal CVA Monitor neuro status and avoid sedatives -The patient currently tracks and follows -Neurology on board Dr. Claudio follow-up recommendations possible initiation of pulse steroids Continue Prozac PULMONOLOGY Right lung pneumonia Continue O2 maintain O2 sats > 92%, currently O2 sat at 2 L/m Bronchodilators scheduled every 6 hours, every 2 hours when necessary -10/07 Chest x-ray-no acute disease -09/26-CTA-no PE CARDIOLOGY Low blood pressure, likely secondary to GI bleed versus shock Sinus tachycardia On Lopressor 12.5mg BID for rate control-monitor HR and BP keep MAP>65mmHg Continue with NS@100 ml/hr. --Obtain Venous Doppler ultrasounds extremities 4 GASTROENTEROLOGY GI bleed-resolved Continue with Protonix infusion. -s/p EGD 09/25 no signs of active bleeding for colonoscopy today. -S/p transfusion 3units PRBC overnight on 09/26 monitor H/H. -09/26 CT abdomen/pelvis showed no acute findings -Colonoscopy done on 09/27 with no active bleeding. S/P PEG placement RENAL Monitor renal function, I/O's, electrolyte replacement protocol. -Kowalski INFECTION DISEASE Sepsis Persistent Leukocytosis Right upper lung pneumonia-resolved Sacral decubitus-colonized VRE, pseudomonas Continue with abx per ID (vancomycin and Zosyn) Follow up on cultures CT abdomen/pelvis 09/26: No acute findings Pertinent cultures 09/25 C-diff PCR negative 09/10/16 Wound culture from sacral decubitus: Pseudo-fluoresceins/[place], enterococcus faecalis, enterococcus faecium VRE 08/26/16 urine culture with Daphney parapsilosis ID following Dr. Reyes follow-up recommendations, early on vancomycin and Zosyn Blood culture-staph epi(possible contaminant) Follow-up repeat urine and sputum cultures ENDOCRINOLOGY SSI for glycemic control HEMATOLOGY Monitor CBC , Keep Hgb >8.0 PROPHYLAXIS Protonix for GI protection SCD for DVT prophylaxis, Lovenox 40mg/day -08/19 Doppler US UE: Left cephalic vein occlusive thrombus noted in the antecubital fossa. Not a candidate for AC due to GI bleed and anemia Obtain ultrasound bilateral extremities 4 LINES Peripheral IVs This patient remains critically ill with one or more organ systems which are or may become a threat to life. I have spent in excess of 45 minutes discontinuously in the care and management of this patient. This time is exclusive of procedures, and includes, but is not limited to, evaluation of the patient, review of the medical record, discussions with family, consultants, nursing staff, or respiratory therapy, and documentation in the medical record. Code Status Full Discussed Condition With Dr. Thorpe and DOUBLE BACK OPERATOR at bedside Problem Qualifiers (1) GI bleed: Qualified Code: K92.2 - Gastrointestinal hemorrhage, unspecified gastrointestinal hemorrhage type (2) UTI (urinary tract infection): Qualified Code: N30.00 - Acute cystitis without hematuria (3) Effusion of hip joint: Qualified Code: M25.459 - Effusion of hip joint, unspecified laterality Bhavna Monique MD Oct 09, 2016 10:25
[2016-10-09] MEDS: RESP: ALBUTEROL 2.5 MG/IPRATROPIUM 0.5 MG NEB (SCH) INH ×3 (11:00→21:41)
[2016-10-09] MEDS: PIPERACIL-TAZO 4.5 GM PREMIX 100 ML IV SCH ×2 (12:00→18:00)
--- NOTE | 2016-10-09 12:28 | HHI.IDPN ---
Note Infectious Disease Note Michael Hallman MD Oct 09, 2016 12:27 distress. Zosyn was restarted. Patient continues to spike high temp 102. Continuous lip tremors. Not following commands, BP stable. On nasal canula. CXR has no infiltrates. No oral secretions. is a 46 AAM with NeuroBehcet's disease, difficult placement and not safe discharge so continues to reside at [facility]. Antibiotics Vancomycin. Zosyn. Lines Line sites with no e.o infection Past Medical History reviewed Allergies: Coded Allergies: *MDRO Multi-Drug Resistant Organism (Verified Adverse Reaction, Unknown, ) VRE (buttock)-09/20/16 Uncoded Allergies: ADHESIVE TAPE (Allergy, Severe, 09/21/16) BLISTERS Objective Vital Signs Date Time Temp Pulse Resp B/P Pulse Ox O2 Delivery O2 Flow Rate FiO2 10/09/16 09:49 100 Nasal Cannula 2.00 10/09/16 08:37 97 2.00 10/09/16 08:00 102.9 135 34 126/66 97 10/09/16 04:00 98.6 121 22 115/70 100 10/09/16 00:27 98.4 133 20 126/73 100 10/08/16 21:45 123/68 10/08/16 20:43 102.6 136 26 117/74 100 10/08/16 20:30 Room Air 10/08/16 20:00 136 10/08/16 16:00 102.8 127 22 119/62 99 10/08/16 10/08/16 10/09/16 15:00 23:00 07:00 Intake Total 0 ml 1619 ml 1922 ml Output Total 900 ml 450 ml Balance -900 ml 1169 ml 1922 ml Intake Oral 0 ml IV Total 1619 ml 682 ml Tube Feeding 1120 ml Tube Irrigant 120 ml Output Urine Total 900 ml 450 ml # Bowel Movements 1 Laboratory Tests Test 10/08/16 10/09/16 08:03 05:19 White Blood Count 18.2 TH/MM3 16.4 TH/MM3 Red Blood Count 3.57 MIL/MM3 3.04 MIL/MM3 Hemoglobin 10.0 GM/DL 8.5 GM/DL Hematocrit 30.9 % 26.3 % Mean Corpuscular Volume 86.8 FL 86.4 FL Mean Corpuscular Hemoglobin 28.2 PG 28.1 PG Mean Corpuscular Hemoglobin 32.4 % 32.5 % Concent Red Cell Distribution Width 16.3 % 16.1 % Platelet Count 469 TH/MM3 428 TH/MM3 Mean Platelet Volume 8.8 FL 9.1 FL Neutrophils (%) (Auto) 86.9 % 88.6 % Lymphocytes (%) (Auto) 8.0 % 6.3 % Monocytes (%) (Auto) 4.5 % 4.8 % Eosinophils (%) (Auto) 0.3 % 0.1 % Basophils (%) (Auto) 0.3 % 0.2 % Neutrophils # (Auto) 15.8 TH/MM3 14.5 TH/MM3 Lymphocytes # (Auto) 1.5 TH/MM3 1.0 TH/MM3 Monocytes # (Auto) 0.8 TH/MM3 0.8 TH/MM3 Eosinophils # (Auto) 0.0 TH/MM3 0.0 TH/MM3 Basophils # (Auto) 0.1 TH/MM3 0.0 TH/MM3 CBC Comment DIFF FINAL DIFF FINAL Differential Comment Laboratory Tests Test 10/09/16 05:19 Sodium Level 137 MEQ/L Potassium Level 3.7 MEQ/L Chloride Level 103 MEQ/L Carbon Dioxide Level 26.4 MEQ/L Anion Gap 8 MEQ/L Blood Urea Nitrogen 11 MG/DL Creatinine 0.56 MG/DL Estimat Glomerular Filtration 192 ML/MIN Rate Random Glucose 87 MG/DL Calcium Level 9.2 MG/DL Total Bilirubin 0.3 MG/DL Aspartate Amino Transf 32 U/L (AST/SGOT) Alanine Aminotransferase 26 U/L (ALT/SGPT) Alkaline Phosphatase 71 U/L Total Protein 7.0 GM/DL Albumin 2.1 GM/DL Imaging Chest X-Ray 10/09/16 0000 Signed Impressions: Service Date/Time: Sunday, October 09, 2016 08:37 - CONCLUSION: No acute cardiopulmonary disease. Manny Delarosa MD Chest X-Ray 10/07/16 0000 Signed Impressions: Service Date/Time: Friday, October 07, 2016 12:09 - CONCLUSION: No acute disease. Baldev Vu MD Upper Extremity Ultrasound 09/28/16 0000 Signed Impressions: Service Date/Time: Wednesday, September 28, 2016 19:15 - CONCLUSION: 1. Occlusive superficial thrombosis in the left cephalic vein near the antecubital fossa. No deep venous thrombosis. Sumit Bourgeois MD Chest X-Ray 09/28/16 Signed Impressions: Service Date/Time: Wednesday, September 28, 2016 03:32 - CONCLUSION: Unchanged right upper lobe infiltrate. Vishal Beckford Jr., MD Abdomen/Pelvis CT 09/26/16 Signed Impressions: Service Date/Time: Monday, September 26, 2016 15:05 - CONCLUSION: No definite acute CT findings in the abdomen or pelvis. Josafat Meyer MD Renal Ultrasound 08/28/16 Signed Impressions: Service Date/Time: Sunday, August 28, 2016 20:03 - CONCLUSION: Mild increased echotexture of both kidneys. Baldev Vu MD Lumbar Puncture Fluoroscopy 08/17/16 Signed Impressions: Service Date/Time: Wednesday, August 17, 2016 12:26 - CONCLUSION: Uncomplicated fluoroscopically guided lumbar puncture. Vishal Beckford Jr., MD Brain MRI 08/17/16 Signed Impressions: Service Date/Time: Wednesday, August 17, 2016 13:28 - CONCLUSION: Remote long-standing areas of abnormality in the brainstem and middle cerebellar peduncle consistent with remote infarcts or contusion. No acute intracranial abnormality. Chacho Bright MD Abdomen X-Ray 08/17/16 Signed Impressions: Service Date/Time: Wednesday, August 17, 2016 13:02 - CONCLUSION: No evidence of obstruction. No MRI incompatible foreign body is identified. Chacho Bright MD Head CT 08/16/16 Signed Impressions: Service Date/Time: Tuesday, August 16, 2016 09:55 - CONCLUSION: Chronic ischemic changes left frontal lobe possibly from evidence of previous ventriculostomy placement, unchanged. No acute intracranial abnormality. Gen Potter MD Modified Barium Swallow 08/15/16 0000 Signed Impressions: Service Date/Time: Monday, August 15, 2016 00:00 - CONCLUSION: See report above and speech pathology report Chacho Bright MD Physical Exam GENERAL: Poorly nourished, chronically ill appearing patient. SKIN: Old scars on arms. EYES: Pupils equal round and reactive. Extraocular motions intact. No scleral icterus. No injection or drainage. ENT: moist mucosae CARDIOVASCULAR: HS audible. No murmur. RESPIRATORY: Breath sounds equal bilaterally. Mild wheezing at bases. GASTROINTESTINAL: Abdomen soft. decreased BS. : maurice in place with clear yellow urine MUSCULOSKELETAL: Extremities without clubbing, cyanosis, or edema. Wasting and contractures. SKIN: No rash. NEUROLOGICAL: Lethargic. Lip tremors. Psych: unable to assess IV line sites with no e.o infection. 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 (2) Fever, and Leucocytosis: Persistent. high grade. likely non infectious at this point. Cultures are negative. ? drug fever vs infection. 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 septic arthritis vs avascular necrosis. Plan: Repeat blood cultures. Stop Zosyn. Start Azactam. Start Levaquin. Switch Vancomycin to Zyvox. Consider radiology aspirate of joint hip. Isolate for VRE colonization in the wound. Michael Hallman MD Oct 09, 2016 12:27
[2016-10-09] MEDS: SODIUM CHLOR 0.9% 1000 ML INJ 1,000 ML IV SCH ×2 (13:02→23:02)
--- NOTE | 2016-10-09 18:48 | MG ---
cc: RON BERNSTEIN MD Lab No: [id number] Date: 10/09/2016 Age: 46 Sex: M Race: DATE OF : 1970. 46-year-old history of fever, tremors, confusion, constant shivering tremulousness body and mouth, high-frequency myogenic artifact, electrical artifact noted occurring almost entirely throughout the recording. There appears to be 1 to 3 hertz delta slowing in the background. INTERPRETATION: Significant artifact throughout the recording and what appears to be underlying at least mild to moderate encephalopathy. Clinical correlation. Ron Bernstein MD /JCGarima /5:29 PM /6:45 PM
[2016-10-09] MEDS: SODIUM CHLORIDE 0.9% FLUSH 10 ML FLUSH IV FLUSH SCH (21:00)
[2016-10-09] MEDS: LANSOPRAZOLE SOLUTAB 30 MG TAB NG SCH (22:11)
[2016-10-09 22:52] LABS: BILIRUBIN, URINE NEG (NEG); BLOOD, URINE SMALL (NEG); GLUCOSE,URINE NEG (NEG); KETONE, URINE NEG (NEG); MUCUS URINE FEW /lpf (OCC); NITRITE,URINE NEG (NEG); PH, URINE 5.5 (5.0-8.5); URINE COLOR LIGHT-YELLOW (YELLW/STRAW); URINE LEUKOCYTE ESTERASE NEG (NEG)
[2016-10-10] VITALS (9 sets, daily range): BP systolic 98–126; BP diastolic 54–83; PULSE 67–138; RESP 22–35; TEMP 98.6–103.3; O2SAT 95–100
[2016-10-10] MEDS: VANCOMYCIN INJ 1,300 MG in SODIUM CHLORID 0.9% 500 ML INJ 500 ML IV SCH ×2 (00:57→10:42)
[2016-10-10] MEDS: RESP: ALBUTEROL 2.5 MG/IPRATROPIUM 0.5 MG NEB (SCH) INH ×4 (03:29→21:14)
[2016-10-10] MEDS: ACETAMINOPHEN 325 MG TAB PO PRN ×2 (04:00→20:56)
[2016-10-10] MEDS: CHLORHEXIDINE GLUCONATE 2 % 1 PACK (2 CLOTHS) TOP SCH (04:00)
[2016-10-10] MEDS: INSULIN NovoLIN REGULAR SUPPLEMENTAL SCALE SQ SCH ×4 (05:00→23:00)
[2016-10-10] MEDS: PIPERACIL-TAZO 4.5 GM PREMIX 100 ML IV SCH ×4 (05:42→23:37)
[2016-10-10 05:58] LABS: AUTOMATED NEUTROPHIL # 14.6 TH/MM3 (1.8-7.7); BASOPHIL % 0.2 % (0.0-2.0); EOSINOPHIL # 0.1 TH/MM3 (0-0.4); EOSINOPHIL % 0.3 % (0.0-4.0); HEMATOCRIT 25.8 % (39.0-51.0); HEMOGLOBIN 8.5 GM/DL (13.0-17.0); LYMPH % 4.5 % (9.0-44.0); LYMPHOCYTE # 0.7 TH/MM3 (1.0-4.8); MEAN CELL VOLUME 85.7 FL (80.0-100.0); MEAN CORPUSCULAR HEMOGLOBIN 28.2 PG (27.0-34.0); MEAN CORPUSCULAR HGB CONC 32.9 % (32.0-36.0); MEAN PLATELET VOLUME 8.7 FL (7.0-11.0); MONOCYTE # 0.5 TH/MM3 (0-0.9); PLATELET COUNT 420 TH/MM3 (150-450); RED BLOOD COUNT 3.01 MIL/MM3 (4.50-5.90); RED CELL DISTRIBUTION WIDTH 16.3 % (11.6-17.2); WHITE BLOOD COUNT 15.9 TH/MM3 (4.0-11.0)
[2016-10-10 06:08] LABS: BICARBONATE 26.4 MEQ/L (21.0-32.0); CALCIUM 9.2 MG/DL (8.5-10.1); CREATININE 0.58 MG/DL (0.60-1.30); MAGNESIUM 1.9 MG/DL (1.5-2.5); PHOSPHORUS 2.8 MG/DL (2.5-4.9)
[2016-10-10] MEDS: SODIUM CHLORIDE 0.9% FLUSH 10 ML FLUSH IV FLUSH SCH ×2 (09:00→20:56)
[2016-10-10] MEDS: SODIUM CHLOR 0.9% 1000 ML INJ 1,000 ML IV SCH (09:02)
[2016-10-10] MEDS: LANSOPRAZOLE SOLUTAB 30 MG TAB NG SCH ×2 (09:53→20:56)
[2016-10-10] MEDS: METOPROLOL TARTRATE 25 MG TAB PO SCH (09:53)
[2016-10-10] MEDS: FLUoxetine HCL 10 MG CAP PO SCH ×2 (09:53→10:03)
[2016-10-10] MEDS: SENNOSIDES SYRUP 8.8 MG/5 ML CUP PO SCH (09:53)
[2016-10-10] MEDS: COLLAGENASE OINT 30 GM TUBE TOP SCH (10:04)
--- NOTE | 2016-10-10 10:54 | HHI.CCPN ---
Subjective Remarks/Hospital Course 46-year-old rather unfortunate male with known history of brain abscess, frontal CVA, neuro Behcet's syndrome who was originally admitted to the hospital because of failure to thrive, decreased oral intake. Patient initial workup indicated sepsis with urinary tract infection. Patient was treated for that and was doing well. GI was consulted in which place a PEG tube for feeding for continued management and care. Patient does have sacral decubitus which is being managed by wound care nursing staff. Patient was in [place] for long-term care because of unable to place the patient in a facility. Patient was doing well until today when nursing staff notified attending physician that patient had a rather significant lower GI bleed with copious bright red blood, maroon blood clots, melena. At that time patient was rather tachycardic up to 148, blood pressure was taken after that and found to be 94/ 69. Temperature 101.1. Because of those reasons patient was transferred to ICU for stabilization. Patient was given 1 L fluid bolus. Blood pressure was monitored closely. Workup was entertained for sepsis secondary to the fever. Workup did indicate significant leukocytosis, chest x-ray with right upper lung consolidation. GI was called by attending team and transferred to [facility] is being arranged for emergent endoscopy due to the acute GI bleed. Patient has been started on empiric antibiotics include vancomycin and Zosyn. Blood cultures have been taken. Awaiting sputum culture. This patient was being transferred to [facility] ICU it was indicated by clinical nursing manager that a critical care consult should be placed. Hence critical care was consulted to assume medical management in the ICU. 09/26 Patient was transferred from yesterday for GI bleed s/p EGD yesterday which showed no signs of active bleeding. For Colonoscopy today. s/p transfusion 3u PRBC overnight for Hgb 6.9 repeat Hgb 10.6 this morning. Afebrile. 09/27 No acute events overnight. Afebrile. WBC trending down, H/J stable, for colonoscopy today. CT abdomen yesterday showed no acute findings. 09/28: Resting in bed comfortably. Not in any acute distress. No further bleeding. Colonoscopy yesterday showed an ulcer however no active bleeding. 10/09: This is a well known 46-year-old male with history of neuro-Behcet's diagnosed at [place], left frontal CVA, bedbound, nonverbal, mural thrombus, brain abscess, meningitis, hypertension, diabetes, presents for decreased oral intake over the past 23 days, and skin tear at the left upper extremity. All the information obtained from the EMR and ER physicians know as the patient is nonverbal and unable to provide any history. Apparently the patient lives at home with his sister who is his nurse healthcare manager. She reported the patient has had decreased oral intake over the past few day during this hospitalization the patient had an EGD and PEG placement. 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 The patient was previously in ICU secondary to GI bleed with resolution and transferred to the hospitalist. Today the patient was appear to be somnolent, nonresponsive, and respiratory distress a [facility] was called and the patient was transferred to the ICU. Patient was noted also to have an elevated temperature of 102.9. Neurology and infectious disease have been following the patient since admission to hospital. Critical care medicine was consult for management. 10/10 Patient is lying in bed in no acute resp distress. Tachycardic spiked fever with T: 103.3 at 4am. Objective Vital Signs Date Time Temp Pulse Resp B/P Pulse Ox O2 Delivery O2 Flow Rate FiO2 10/10/16 09:31 100 Nasal Cannula 1.00 10/10/16 04:00 21 10/10/16 04:00 103.3 96 35 120/69 Intake and Output 10/09/16 10/09/16 10/10/16 08:00 16:00 00:00 Intake Total 1922 ml 1122 ml 1839 ml Output Total 850 ml 900 ml Balance 1922 ml 272 ml 939 ml Result Diagram: 10/10/16 0455 10/10/16 0459 Other Results Laboratory Tests Test 10/09/16 10/10/16 10/10/16 21:30 04:55 04:59 Urine Color LIGHT-YELLOW Urine Turbidity CLEAR Urine pH 5.5 Urine Specific [place] 1.017 Urine Protein TRACE mg/dL Urine Glucose (UA) NEG mg/dL Urine Ketones NEG mg/dL Urine Occult Blood SMALL Urine Nitrite NEG Urine Bilirubin NEG Urine Urobilinogen LESS THAN 2.0 MG/DL Urine Leukocyte Esterase NEG Urine RBC LESS THAN 1 /hpf Urine WBC 1 /hpf Urine Mucus FEW /lpf Microscopic Urinalysis Comment CATH-CULT NOT IND White Blood Count 15.9 TH/MM3 Red Blood Count 3.01 MIL/MM3 Hemoglobin 8.5 GM/DL Hematocrit 25.8 % Mean Corpuscular Volume 85.7 FL Mean Corpuscular Hemoglobin 28.2 PG Mean Corpuscular Hemoglobin 32.9 % Concent Red Cell Distribution Width 16.3 % Platelet Count 420 TH/MM3 Mean Platelet Volume 8.7 FL Neutrophils (%) (Auto) 92.0 % Lymphocytes (%) (Auto) 4.5 % Monocytes (%) (Auto) 3.0 % Eosinophils (%) (Auto) 0.3 % Basophils (%) (Auto) 0.2 % Neutrophils # (Auto) 14.6 TH/MM3 Lymphocytes # (Auto) 0.7 TH/MM3 Monocytes # (Auto) 0.5 TH/MM3 Eosinophils # (Auto) 0.1 TH/MM3 Basophils # (Auto) 0.0 TH/MM3 CBC Comment DIFF FINAL Differential Comment Sodium Level 136 MEQ/L Potassium Level 3.4 MEQ/L Chloride Level 101 MEQ/L Carbon Dioxide Level 26.4 MEQ/L Anion Gap 9 MEQ/L Blood Urea Nitrogen 8 MG/DL Creatinine 0.58 MG/DL Estimat Glomerular Filtration 184 ML/MIN Rate Random Glucose 84 MG/DL Calcium Level 9.2 MG/DL Phosphorus Level 2.8 MG/DL Magnesium Level 1.9 MG/DL Imaging Last Impressions Chest X-Ray 10/09/16 0000 Signed Impressions: Service Date/Time: Sunday, October 09, 2016 08:37 - CONCLUSION: No acute cardiopulmonary disease. KOlaf Delarosa MD Lower Extremity Ultrasound 10/06/16 0000 Signed Impressions: Service Date/Time: September 17:29 - CONCLUSION: Normal examination. Josafat Meyer MD CT Angiography 10/06/16 0000 Signed Impressions: Service Date/Time: September 20:31 - CONCLUSION: Minimal right upper lobe infiltrate and basilar atelectasis. No evidence of pulmonary embolism.. Josafat Meyer MD Abdomen/Pelvis CT 10/06/16 0000 Signed Impressions: Service Date/Time: September 20:31 - CONCLUSION: No evidence of pelvic abscess. Josafat Meyer MD Upper Extremity Ultrasound 09/28/16 0000 Signed Impressions: Service Date/Time: Wednesday, September 28, 2016 19:15 - CONCLUSION: 1. Occlusive superficial thrombosis in the left cephalic vein near the antecubital fossa. No deep venous thrombosis. Sumit Bourgeois MD Renal Ultrasound 08/28/16 0000 Signed Impressions: Service Date/Time: Sunday, August 28, 2016 20:03 - CONCLUSION: Mild increased echotexture of both kidneys. Baldev Vu MD Lumbar Puncture Fluoroscopy 08/17/16 0000 Signed Impressions: Service Date/Time: Wednesday, August 17, 2016 12:26 - CONCLUSION: Uncomplicated fluoroscopically guided lumbar puncture. Vishal Beckford Jr., MD Brain MRI 08/17/16 0000 Signed Impressions: Service Date/Time: Wednesday, August 17, 2016 13:28 - CONCLUSION: Remote long-standing areas of abnormality in the brainstem and middle cerebellar peduncle consistent with remote infarcts or contusion. No acute intracranial abnormality. Chacho Bright MD Abdomen X-Ray 08/17/16 0000 Signed Impressions: Service Date/Time: Wednesday, August 17, 2016 13:02 - CONCLUSION: No evidence of obstruction. No MRI incompatible foreign body is identified. Chacho Bright MD Head CT 08/16/16 0000 Signed Impressions: Service Date/Time: Tuesday, August 16, 2016 09:55 - CONCLUSION: Chronic ischemic changes left frontal lobe possibly from evidence of previous ventriculostomy placement, unchanged. No acute intracranial abnormality. Gen Potter MD Modified Barium Swallow 08/15/16 0000 Signed Impressions: Service Date/Time: Monday, August 15, 2016 00:00 - CONCLUSION: See report above and speech pathology report Chacho Bright MD Objective Remarks GENERAL: Patient to my recumbent in bed, opens eyes to voice, and tracks SKIN: Warm and dry. HEAD: Normocephalic. EYES: No scleral icterus. No injection or drainage. NECK: Supple, trachea midline. No JVD or lymphadenopathy. CARDIOVASCULAR: Tachycardic without murmurs, gallops, or rubs. RESPIRATORY: Breath sounds equal bilaterally. No accessory muscle use. Nasal cannula at 2 L GASTROINTESTINAL: Abdomen soft, non-tender, nondistended. PEG tube in place MUSCULOSKELETAL: No cyanosis, or edema. Contractures of extremities 4. BACK: Nontender without obvious deformity. No CVA tenderness. Procedures 07/19/16 EGD with PEG tube placement 09/27/16 colonoscopy A/P Problem List: (1) Severe sepsis ICD Code: A41.9 Status: Acute (2) GI bleed ICD Code: K92.2 Status: Resolved (3) Leucocytosis ICD Code: D72.829 Status: Acute (4) Fever ICD Code: R50.9 Status: Acute (5) Pneumonia involving right lung ICD Code: J18.9 Status: Acute (6) 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 Assessment and Plan NEUROLOGY 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 Encephalopathy H/O meningitis Left frontal CVA Monitor neuro status and avoid sedatives -Neurology on board Dr. Claudio EEG 10/09- mild- mod encephalopathy -On Prozac 10mg daily PULMONOLOGY Continue O2 maintain O2 sats > 92%, Bronchodilators scheduled every 6 hours, every 2 hours when necessary -10/09 Chest x-ray-no acute disease -09/26-CTA-no PE CARDIOLOGY Sinus tachycardia Increase Lopressor 50 mg BID for rate control-monitor HR and BP keep MAP>65mmHg GASTROENTEROLOGY GI bleed-resolved Continue with Protonix 40 -s/p EGD 09/25 no signs of active bleeding -S/p transfusion 3units PRBC overnight on 09/26 monitor H/H. -09/26 CT abdomen/pelvis showed no acute findings -Colonoscopy done on 09/27 with no active bleeding. S/P PEG placement RENAL Monitor renal function, I/O's, electrolyte replacement protocol. -Will need K replacement today INFECTION DISEASE Sepsis Persistent Leukocytosis Right upper lung pneumonia-resolved Sacral decubitus-colonized VRE, pseudomonas Continue with abx per ID (vancomycin and Zosyn) Pancultured 10/09 CT abdomen/pelvis 09/26: No acute findings Pertinent cultures 09/25 C-diff PCR negative 09/10/16 Wound culture from sacral decubitus: Pseudo-fluoresceins/[place], enterococcus faecalis, enterococcus faecium VRE 08/26/16 urine culture with Daphney parapsilosis ID following Dr. Reyes Blood culture-staph epi(possible contaminant) on 10/05 For b/l hip aspiration by IR today. Ortho is following ENDOCRINOLOGY SSI for glycemic control HEMATOLOGY Monitor CBC PROPHYLAXIS Prevacid 30mg BID for GI protection SCD for DVT prophylaxis, -Doppler US LE 10/06: No DVT -Doppler US UE 09/28: Occlusive superficial thrombosis in the left cephalic vein near the antecubital fossa. No DVT LINES Peripheral IVs Will sign off and transfer care to [facility] Level 3 Problem Qualifiers (1) GI bleed: Qualified Code: K92.2 - Gastrointestinal hemorrhage, unspecified gastrointestinal hemorrhage type Angela Carver MD Oct 10, 2016 10:54
--- NOTE | 2016-10-10 14:01 | HHI.IDPN ---
Subjective Subjective Remarks is a 46 AAM with NeuroBehcet's disease, difficult placement and not safe discharge so continues to reside at [facility]. Overnight events reviewed. Lethargic, not tracking like days before. Maurice changed. Liquid stools Cdiff negative. Gurgles: concerning for aspiration given change in mentation. No vomiting witnessed. Antibiotics Zosyn IV vancomycin IV Lines Line sites with no e.o infection Past Medical History reviewed Allergies: Coded Allergies: *MDRO Multi-Drug Resistant Organism (Verified Adverse Reaction, Unknown, ) VRE (buttock)-09/20/16 Uncoded Allergies: ADHESIVE TAPE (Allergy, Severe, 09/21/16) BLISTERS Objective . Vital Signs Date Time Temp Pulse Resp B/P Pulse Ox O2 Delivery O2 Flow Rate FiO2 10/10/16 12:00 95 Nasal Cannula 2.00 21 10/10/16 09:31 100 Nasal Cannula 1.00 10/10/16 08:00 Nasal Cannula 2.00 21 10/10/16 04:00 Nasal Cannula 2.00 21 10/10/16 04:00 103.3 96 35 120/69 100 10/10/16 00:00 99.7 96 30 98/63 96 10/10/16 00:00 Nasal Cannula 2.00 21 10/09/16 21:42 100 Nasal Cannula 1.50 10/09/16 20:00 101.8 134 33 109/72 100 10/09/16 20:00 96 Nasal Cannula 2.00 21 10/09/16 16:00 98.8 88 16 109/74 96 10/09/16 16:00 Nasal Cannula 2.00 10/09/16 10/09/16 10/10/16 15:00 23:00 07:00 Intake Total 1122 ml 1839 ml 1025 ml Output Total 850 ml 900 ml 800 ml Balance 272 ml 939 ml 225 ml IV Total 1122 ml 1839 ml 960 ml Tube Feeding 65 ml Output Urine Total 850 ml 800 ml 800 ml Stool Total 100 ml . Laboratory Tests Test 10/09/16 10/10/16 05:19 04:55 White Blood Count 16.4 TH/MM3 15.9 TH/MM3 Red Blood Count 3.04 MIL/MM3 3.01 MIL/MM3 Hemoglobin 8.5 GM/DL 8.5 GM/DL Hematocrit 26.3 % 25.8 % Mean Corpuscular Volume 86.4 FL 85.7 FL Mean Corpuscular Hemoglobin 28.1 PG 28.2 PG Mean Corpuscular Hemoglobin 32.5 % 32.9 % Concent Red Cell Distribution Width 16.1 % 16.3 % Platelet Count 428 TH/MM3 420 TH/MM3 Mean Platelet Volume 9.1 FL 8.7 FL Neutrophils (%) (Auto) 88.6 % 92.0 % Lymphocytes (%) (Auto) 6.3 % 4.5 % Monocytes (%) (Auto) 4.8 % 3.0 % Eosinophils (%) (Auto) 0.1 % 0.3 % Basophils (%) (Auto) 0.2 % 0.2 % Neutrophils # (Auto) 14.5 TH/MM3 14.6 TH/MM3 Lymphocytes # (Auto) 1.0 TH/MM3 0.7 TH/MM3 Monocytes # (Auto) 0.8 TH/MM3 0.5 TH/MM3 Eosinophils # (Auto) 0.0 TH/MM3 0.1 TH/MM3 Basophils # (Auto) 0.0 TH/MM3 0.0 TH/MM3 CBC Comment DIFF FINAL DIFF FINAL Differential Comment Laboratory Tests Test 10/09/16 10/10/16 10/10/16 05:19 04:59 11:47 Sodium Level 137 MEQ/L 136 MEQ/L Potassium Level 3.7 MEQ/L 3.4 MEQ/L Chloride Level 103 MEQ/L 101 MEQ/L Carbon Dioxide Level 26.4 MEQ/L 26.4 MEQ/L Anion Gap 8 MEQ/L 9 MEQ/L Blood Urea Nitrogen 11 MG/DL 8 MG/DL Creatinine 0.56 MG/DL 0.58 MG/DL Estimat Glomerular Filtration 192 ML/MIN 184 ML/MIN Rate Random Glucose 87 MG/DL 84 MG/DL Calcium Level 9.2 MG/DL 9.2 MG/DL Total Bilirubin 0.3 MG/DL Aspartate Amino Transf 32 U/L (AST/SGOT) Alanine Aminotransferase 26 U/L (ALT/SGPT) Alkaline Phosphatase 71 U/L Total Protein 7.0 GM/DL Albumin 2.1 GM/DL Phosphorus Level 2.8 MG/DL 3.0 MG/DL Magnesium Level 1.9 MG/DL Microbiology Date/Time Procedure Status Source Growth 10/09/16 20:50 Gram Stain - Final Resulted Sputum Endotracheal 10/09/16 20:50 Sputum Culture - Preliminary Resulted Sputum Endotracheal RESULTS PENDING 10/09/16 21:40 Aerobic Blood Culture - Preliminary Resulted Blood Peripheral NO GROWTH IN 1 DAY 10/09/16 21:40 Anaerobic Blood Culture - Preliminary Resulted Blood Peripheral NO GROWTH IN 1 DAY 10/09/16 21:45 Aerobic Blood Culture - Preliminary Resulted Blood Peripheral NO GROWTH IN 1 DAY 10/09/16 21:45 Anaerobic Blood Culture - Preliminary Resulted Blood Peripheral NO GROWTH IN 1 DAY Imaging Last Impressions Upper Extremity Ultrasound 09/28/16 0000 Signed Impressions: Service Date/Time: Wednesday, September 28, 2016 19:15 - CONCLUSION: 1. Occlusive superficial thrombosis in the left cephalic vein near the antecubital fossa. No deep venous thrombosis. Sumit Bourgeois MD Chest X-Ray 09/28/16 0000 Signed Impressions: Service Date/Time: Wednesday, September 28, 2016 03:32 - CONCLUSION: Unchanged right upper lobe infiltrate. Vishal Beckford Jr., MD Abdomen/Pelvis CT 09/26/16 0000 Signed Impressions: Service Date/Time: Monday, September 26, 2016 15:05 - CONCLUSION: No definite acute CT findings in the abdomen or pelvis. Josafat Meyer MD Renal Ultrasound 08/28/16 0000 Signed Impressions: Service Date/Time: Sunday, August 28, 2016 20:03 - CONCLUSION: Mild increased echotexture of both kidneys. Baldev Vu MD Lumbar Puncture Fluoroscopy 08/17/16 0000 Signed Impressions: Service Date/Time: Wednesday, August 17, 2016 12:26 - CONCLUSION: Uncomplicated fluoroscopically guided lumbar puncture. Vishal Beckford Jr., MD Brain MRI 08/17/16 0000 Signed Impressions: Service Date/Time: Wednesday, August 17, 2016 13:28 - CONCLUSION: Remote long-standing areas of abnormality in the brainstem and middle cerebellar peduncle consistent with remote infarcts or contusion. No acute intracranial abnormality. Chacho Bright MD Abdomen X-Ray 08/17/16 0000 Signed Impressions: Service Date/Time: Wednesday, August 17, 2016 13:02 - CONCLUSION: No evidence of obstruction. No MRI incompatible foreign body is identified. Chacho Bright MD Head CT 08/16/16 0000 Signed Impressions: Service Date/Time: Tuesday, August 16, 2016 09:55 - CONCLUSION: Chronic ischemic changes left frontal lobe possibly from evidence of previous ventriculostomy placement, unchanged. No acute intracranial abnormality. Gen Potter MD Modified Barium Swallow 08/15/16 0000 Signed Impressions: Service Date/Time: Monday, August 15, 2016 00:00 - CONCLUSION: See report above and speech pathology report Chacho Bright MD Physical Exam GENERAL: Poorly nourished, chronically ill appearing patient. SKIN: Old scars on arms. EYES: Pupils equal round and reactive. Extraocular motions intact. No scleral icterus. No injection or drainage. ENT: moist mucosae CARDIOVASCULAR: HS audible. No murmur. RESPIRATORY:. Breath sounds equal bilaterally. clear to auscultation GASTROINTESTINAL: Abdomen soft, non-tender, minimally distended. : maurice in place with clear yellow urine MUSCULOSKELETAL: Extremities without clubbing, cyanosis, or edema. Wasting and contractures. ? Warmth in the perineal region close to the decub ulcer. ? cellulitis vs pressure related. NEUROLOGICAL: Lethargic. Not tracking like days before. Psych: unable to assess IV line sites with no e.o infection. 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 (2) Fever, and Leucocytosis: likely non infectious at this point. 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 septic arthritis vs avascular necrosis. Plan: Follow blood cultures Follow UA/urine cultures. Continue Zosyn IV (for aspiration) Continue Vanco IV (target for cellulitis) Appreciate Ortho consult. IR guided aspiration for bilateral hip effusions planned. If no wbc or s/o infection on the fluid will consider steroids for Aseptic meningitis related to neurobehcets syndrome. d/w . Berna Reyes MD Oct 10, 2016 14:01
[2016-10-10] MEDS: METOPROLOL TARTRATE 50 MG TAB PO SCH (20:56)
[2016-10-11] VITALS (12 sets, daily range): BP systolic 100–123; BP diastolic 68–78; PULSE 90–128; RESP 20–36; TEMP 98.6–101.3; O2SAT 92–100
[2016-10-11] MEDS: COLLAGENASE OINT 30 GM TUBE TOP SCH (01:00)
[2016-10-11] MEDS: CHLORHEXIDINE GLUCONATE 2 % 1 PACK (2 CLOTHS) TOP SCH (04:00)
[2016-10-11] MEDS: RESP: ALBUTEROL 2.5 MG/IPRATROPIUM 0.5 MG NEB (SCH) INH ×4 (04:03→21:43)
[2016-10-11] MEDS: INSULIN NovoLIN REGULAR SUPPLEMENTAL SCALE SQ SCH ×3 (05:00→17:00)
[2016-10-11] MEDS: PIPERACIL-TAZO 4.5 GM PREMIX 100 ML IV SCH ×4 (05:02→22:56)
[2016-10-11 05:11] LABS: AUTOMATED NEUTROPHIL # 14.2 TH/MM3 (1.8-7.7); BASOPHIL # 0.1 TH/MM3 (0-0.2); BASOPHIL % 0.3 % (0.0-2.0); EOSINOPHIL # 0.2 TH/MM3 (0-0.4); HEMATOCRIT 27.8 % (39.0-51.0); HEMOGLOBIN 8.6 GM/DL (13.0-17.0); LYMPHOCYTE # 1.1 TH/MM3 (1.0-4.8); MEAN CELL VOLUME 87.7 FL (80.0-100.0); MEAN CORPUSCULAR HEMOGLOBIN 27.2 PG (27.0-34.0); MEAN PLATELET VOLUME 8.3 FL (7.0-11.0); MONO % 5.2 % (0.0-8.0); MONOCYTE # 0.9 TH/MM3 (0-0.9); NEUT % 86.5 % (16.0-70.0); PLATELET COUNT 413 TH/MM3 (150-450); RED BLOOD COUNT 3.17 MIL/MM3 (4.50-5.90); RED CELL DISTRIBUTION WIDTH 15.8 % (11.6-17.2); WHITE BLOOD COUNT 16.4 TH/MM3 (4.0-11.0)
[2016-10-11 05:38] LABS: BICARBONATE 29.1 MEQ/L (21.0-32.0); CALCIUM 9.1 MG/DL (8.5-10.1); CREATININE 0.66 MG/DL (0.60-1.30); PHOSPHORUS 2.8 MG/DL (2.5-4.9)
[2016-10-11] MEDS: LANSOPRAZOLE SOLUTAB 30 MG TAB NG SCH ×2 (08:43→20:47)
[2016-10-11] MEDS: METOPROLOL TARTRATE 50 MG TAB PO SCH ×2 (08:43→20:47)
[2016-10-11] MEDS: FLUoxetine HCL 10 MG CAP PO SCH (08:43)
[2016-10-11] MEDS: SODIUM CHLORIDE 0.9% FLUSH 10 ML FLUSH IV FLUSH SCH ×2 (08:43→20:47)
[2016-10-11] MEDS: SENNOSIDES SYRUP 8.8 MG/5 ML CUP PO SCH (08:43)
[2016-10-11] MEDS: VANCOMYCIN INJ 1,300 MG in SODIUM CHLORID 0.9% 500 ML INJ 500 ML IV SCH ×2 (11:25→22:56)
--- NOTE | 2016-10-11 15:52 | PD.RAD ---
Post US Procedure Prog Note Pre Procedure Diagnosis: (1) Effusion of hip joint (2) Fever Post Procedure Diagnosis: (1) Fever Procedure Date: Oct 11, 2016 Supervising Radiologist: Clayton Max Anesthesia: Local Plan of Activity Patient to Unit: Critical Care Patient Condition: Poor See PACS Report for procedural detail/treatment Drainage Procedure Procedure 1 Imaging Guidance: Ultrasound Side: Right Procedure Type: Aspiration (right hip region) Fluid Description: Other (serosanguinous) Findings: Aspirated a small perarticular collection of ~1cc serosanguinous fluid from right hip region. Contaminated with 5 cc of venous blood from small venous branch. Discarded first aspirate (clotted). Second aspirate of additional 1cc bloody fluid. No significant fluid identified on left. Patient contracted which made it difficult to access left hip region. Clayton Max MD Oct 11, 2016 15:52
--- NOTE | 2016-10-11 17:29 | HHI.PR ---
Subjective Remarks eyes open, nonverbal, tolerating tube feedings needs suctioning frequently- whitish had right hip aspiration done today Objective Vitals Vital Signs Date Time Temp Pulse Resp B/P Pulse Ox O2 Delivery O2 Flow Rate FiO2 10/11/16 15:00 96 10/11/16 12:00 100 Nasal Cannula 2.00 10/11/16 09:48 100 Nasal Cannula 2.00 10/11/16 08:00 100 Nasal Cannula 2.00 10/11/16 07:00 93 10/11/16 04:00 99.3 102 23 103/68 100 10/11/16 04:00 100 Nasal Cannula 2.00 10/11/16 02:00 90 10/11/16 00:00 98.6 91 28 100/71 92 10/11/16 00:00 91 10/11/16 00:00 92 Nasal Cannula 2.00 10/10/16 22:00 91 10/10/16 21:15 97 Nasal Cannula 1.50 10/10/16 21:00 97 Nasal Cannula 2.00 10/10/16 20:00 127 10/10/16 20:00 100 Nasal Cannula 6.00 10/10/16 20:00 102.0 127 28 113/65 100 I/O 10/10/16 10/10/16 10/10/16 10/11/16 10/11/16 10/11/16 07:00 15:00 23:00 07:00 15:00 23:00 Intake Total 1025 ml 2046 ml 751 ml 1208 ml Output Total 800 ml 950 ml 450 ml 250 ml Balance 225 ml 1096 ml 301 ml 958 ml IV Total 960 ml 1687 ml 428 ml 753 ml Tube Feeding 65 ml 359 ml 203 ml 395 ml Other 120 ml 60 ml Output Urine Total 800 ml 950 ml 350 ml 250 ml Stool Total 100 ml # Bowel Movements 1 Result Diagram: 10/11/16 0426 10/11/16 0426 Imaging Last Impressions Chest X-Ray 10/09/16 0000 Signed Impressions: Service Date/Time: Sunday, October 09, 2016 08:37 - CONCLUSION: No acute cardiopulmonary disease. Manny Delarosa MD Lower Extremity Ultrasound 10/06/16 0000 Signed Impressions: Service Date/Time: September 17:29 - CONCLUSION: Normal examination. Josafat Meyer MD CT Angiography 10/06/16 Signed Impressions: Service Date/Time: September 20:31 - CONCLUSION: Minimal right upper lobe infiltrate and basilar atelectasis. No evidence of pulmonary embolism.. Josafat Meyer MD Abdomen/Pelvis CT 10/06/16 Signed Impressions: Service Date/Time: September 20:31 - CONCLUSION: No evidence of pelvic abscess. Josafat Meyer MD Upper Extremity Ultrasound 09/28/16 Signed Impressions: Service Date/Time: Wednesday, September 28, 2016 19:15 - CONCLUSION: 1. Occlusive superficial thrombosis in the left cephalic vein near the antecubital fossa. No deep venous thrombosis. Sumit Bourgeois MD Renal Ultrasound 08/28/16 Signed Impressions: Service Date/Time: Sunday, August 28, 2016 20:03 - CONCLUSION: Mild increased echotexture of both kidneys. Baldev Vu MD Lumbar Puncture Fluoroscopy 08/17/16 Signed Impressions: Service Date/Time: Wednesday, August 17, 2016 12:26 - CONCLUSION: Uncomplicated fluoroscopically guided lumbar puncture. Vishal Beckford Jr., MD Brain MRI 08/17/16 Signed Impressions: Service Date/Time: Wednesday, August 17, 2016 13:28 - CONCLUSION: Remote long-standing areas of abnormality in the brainstem and middle cerebellar peduncle consistent with remote infarcts or contusion. No acute intracranial abnormality. Chacho Bright MD Abdomen X-Ray 08/17/16 Signed Impressions: Service Date/Time: Wednesday, August 17, 2016 13:02 - CONCLUSION: No evidence of obstruction. No MRI incompatible foreign body is identified. Chacho Bright MD Head CT 08/16/16 Signed Impressions: Service Date/Time: Tuesday, August 16, 2016 09:55 - CONCLUSION: Chronic ischemic changes left frontal lobe possibly from evidence of previous ventriculostomy placement, unchanged. No acute intracranial abnormality. 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 Lay - plan for another IV steroid trial if cleared with ID EEG 10/09- mild- mod encephalopathy -On Prozac 10mg daily PULMONOLOGY Continue O2 maintain O2 sats > 92%, Bronchodilators scheduled every 6 hours, every 2 hours when necessary -10/09 Chest x-ray-no acute disease -09/26-CTA-no PE -- needs frequent suctioning CARDIOLOGY Sinus tachycardia Increase Lopressor 50 mg BID for rate control-monitor HR and BP keep MAP>65mmHg --response to sepsis GASTROENTEROLOGY GI bleed-resolved Continue with Protonix 40 -s/p EGD 09/25 no signs of active bleeding -S/p transfusion 3units PRBC overnight on 09/26 monitor H/H. -09/26 CT abdomen/pelvis showed no acute findings -Colonoscopy done on 09/27 with no active bleeding. S/P PEG placement RENAL Monitor renal function, I/O's, electrolyte replacement protocol. Hypokalemia - oral replacement protocol INFECTION DISEASE Sepsis Persistent Leukocytosis Right upper lung pneumonia-resolved Sacral decubitus-colonized VRE, pseudomonas S/P hip aspiration by IR 10/11 Continue with abx per ID (vancomycin and Zosyn) Pancultured 10/09 CT abdomen/pelvis 09/26: No acute findings Pertinent cultures 09/25 C-diff PCR negative 09/10/16 Wound culture from sacral decubitus: Pseudo-fluoresceins/[place], enterococcus faecalis, enterococcus faecium VRE 08/26/16 urine culture with Daphney parapsilosis ID following Dr. Reyes Blood culture-staph epi(possible contaminant) on 10/05 FF fluid studies from hip aspiration Ortho is following ENDOCRINOLOGY SSI for glycemic control HEMATOLOGY Monitor CBC PROPHYLAXIS Prevacid 30mg BID for GI protection SCD for DVT prophylaxis, -Doppler US LE 10/06: No DVT -Doppler US UE 09/28: Occlusive superficial thrombosis in the left cephalic vein near the antecubital fossa. No DVT LINES Peripheral IVs Problem Qualifiers (1) GI bleed: Qualified Code: K92.2 - Gastrointestinal hemorrhage, unspecified gastrointestinal hemorrhage type (2) UTI (urinary tract infection): Qualified Code: N30.00 - Acute cystitis without hematuria (3) Effusion of hip joint: Qualified Code: M25.459 - Effusion of hip joint, unspecified laterality Janine Gudino MD Oct 11, 2016 17:29
[2016-10-11 19:04] LABS: WBC, SYNOVIAL FLUID 100 /MM3 (0-200)
--- NOTE | 2016-10-11 19:45 | RADRPT ---
EXAM DATE/TIME: 10/11/2016 13:41 [facility] COMPARISON: CT ABDOMEN & PELVIS W CONTRAST, October 06, 2016, 20:31. INDICATIONS : Patient with a history of effusion. MEDICAL HISTORY : Encephalopathy neuro-Behcet's Left frontal CVA HTN Diabetes SURGICAL HISTORY : None ENCOUNTER: Initial ACUITY: 2 months PAIN SCORE: Non-responsive FLUORO TIME: IMAGE SERIES: DEVICE(S): 18 gauge needle was placed into the right hip joint. FLUID: Total volume of 1 cc of serous sanguinous was removed. Fluid specimen was submitted to the lab for evaluation. PROCEDURE : 1. ultrasound guided right hip aspiration. The risks, benefits and alternatives to the procedure were explained and verbal and written consent w as obtained. The site was prepped in sterile fashion. Full sterile technique was used, including ca p, mask, sterile gloves and gown and a large sterile sheet. Hand hygiene and 2% chlorhexidine and/or betadine/alcohol prep was utilized per protocol for cutaneous antisepsis. The skin and subcutaneous tissues were infiltrated with local anesthetic solution. Ultrasound evaluation showed a hypoechoic area anterior to the joint space, just lateral to the femor al artery and femoral vein. The 18 gauge needle was placed into this collection and approximately 1 c c of serosanguineous fluid was removed. However, with continued aspiration, there was a flash of veno us blood apparently from a regional acid tank liner. This caused the initial specimen to clot and this was subsequently discarded. Second attempt to aspirate the minimal fluid identified only produced a smal l amount of blood which was sent to laboratory for analysis. No purulent aspirate. No identifiable fl uid collection on the left however, the patient was contracted and difficult to visualize the left hi p. The patient tolerated the procedure well and there were no complications. CONCLUSION: Uncomplicated aspiration as above. Minimal fluid on the right. No identifiable fluid on the left Clayton Max MD on October 11, 2016 at 19:36 Board Certified Radiologist. This report was verified electronically.
[2016-10-11] MEDS: IBUPROFEN SUSP 100 MG/5 ML UDC PEG PRN (20:47)
[2016-10-11] MEDS: ACETAMINOPHEN/HYDROcodone 325 MG/5 MG TAB PEG PRN (20:48)
--- NOTE | 2016-10-11 22:03 | RADRPT ---
EXAM DATE/TIME: 10/11/2016 21:23 [facility] COMPARISON: CHEST SINGLE AP, October 09, 2016, 8:37. INDICATIONS : Aspiration, pulmonary edema. MEDICAL HISTORY : Stroke. Cardiovascular disease. SURGICAL HISTORY : None. ENCOUNTER: Subsequent ACUITY: 2 months PAIN SCORE: 0/10 LOCATION: Bilateral chest FINDINGS: A single view of the chest demonstrates mild hazy opacity in the lungs characteristic of mild edema o r possibly aspiration. No significant effusion. No pneumothorax. CONCLUSION: 1. Bilateral hazy airspace disease. Differential diagnosis includes edema and aspiration. Sumit Bourgeois MD on October 11, 2016 at 21:58 Board Certified Radiologist. This report was verified electronically.
--- NOTE | 2016-10-11 22:18 | HHI.IDPN ---
Subjective Subjective Remarks ID X cover fro Dr Reyes delayed entry - pt ws seen today around 1700 chart was reviewed is a 46 AAM with NeuroBehcet's disease, difficult placement and not safe discharge so continues to reside at [facility]. pt remains lethargic, not tracking like days before. Maurice changed. Liquid stools Cdiff negative. Gurgles: concerning for aspiration given change in mentation. Drooling clear resp secretions minimally responsive fever up to 100.9 Antibiotics Zosyn IV vancomycin IV Lines Line sites with no e.o infection Past Medical History reviewed Allergies: Coded Allergies: *MDRO Multi-Drug Resistant Organism (Verified Adverse Reaction, Unknown, ) VRE (buttock)-09/20/16 Uncoded Allergies: ADHESIVE TAPE (Allergy, Severe, 09/21/16) BLISTERS Objective . Vital Signs Date Time Temp Pulse Resp B/P Pulse Ox O2 Delivery O2 Flow Rate FiO2 10/11/16 21:46 100 Nasal Cannula 2.00 10/11/16 16:00 96 Nasal Cannula 2.00 10/11/16 16:00 100.5 116 20 123/77 94 10/11/16 15:00 96 10/11/16 12:00 100.9 110 24 106/68 96 10/11/16 12:00 100 Nasal Cannula 2.00 10/11/16 09:48 100 Nasal Cannula 2.00 10/11/16 08:00 100.6 122 22 105/69 100 10/11/16 08:00 100 Nasal Cannula 2.00 10/11/16 07:00 93 10/11/16 04:00 99.3 102 23 103/68 100 10/11/16 04:00 100 Nasal Cannula 2.00 10/11/16 02:00 90 10/11/16 00:00 98.6 91 28 100/71 92 10/11/16 00:00 91 10/11/16 00:00 92 Nasal Cannula 2.00 10/10/16 10/10/16 10/11/16 15:00 23:00 07:00 Intake Total 2046 ml 751 ml 1208 ml Output Total 950 ml 450 ml 250 ml Balance 1096 ml 301 ml 958 ml IV Total 1687 ml 428 ml 753 ml Tube Feeding 359 ml 203 ml 395 ml Other 120 ml 60 ml Output Urine Total 950 ml 350 ml 250 ml Stool Total 100 ml # Bowel Movements 1 . Laboratory Tests Test 10/10/16 10/11/16 04:55 04:26 White Blood Count 15.9 TH/MM3 16.4 TH/MM3 Red Blood Count 3.01 MIL/MM3 3.17 MIL/MM3 Hemoglobin 8.5 GM/DL 8.6 GM/DL Hematocrit 25.8 % 27.8 % Mean Corpuscular Volume 85.7 FL 87.7 FL Mean Corpuscular Hemoglobin 28.2 PG 27.2 PG Mean Corpuscular Hemoglobin 32.9 % 31.0 % Concent Red Cell Distribution Width 16.3 % 15.8 % Platelet Count 420 TH/MM3 413 TH/MM3 Mean Platelet Volume 8.7 FL 8.3 FL Neutrophils (%) (Auto) 92.0 % 86.5 % Lymphocytes (%) (Auto) 4.5 % 7.0 % Monocytes (%) (Auto) 3.0 % 5.2 % Eosinophils (%) (Auto) 0.3 % 1.0 % Basophils (%) (Auto) 0.2 % 0.3 % Neutrophils # (Auto) 14.6 TH/MM3 14.2 TH/MM3 Lymphocytes # (Auto) 0.7 TH/MM3 1.1 TH/MM3 Monocytes # (Auto) 0.5 TH/MM3 0.9 TH/MM3 Eosinophils # (Auto) 0.1 TH/MM3 0.2 TH/MM3 Basophils # (Auto) 0.0 TH/MM3 0.1 TH/MM3 CBC Comment DIFF FINAL DIFF FINAL Differential Comment Laboratory Tests Test 10/10/16 10/10/16 10/11/16 04:59 11:47 04:26 Sodium Level 136 MEQ/L 139 MEQ/L Potassium Level 3.4 MEQ/L 3.3 MEQ/L Chloride Level 101 MEQ/L 102 MEQ/L Carbon Dioxide Level 26.4 MEQ/L 29.1 MEQ/L Anion Gap 9 MEQ/L 8 MEQ/L Blood Urea Nitrogen 8 MG/DL 8 MG/DL Creatinine 0.58 MG/DL 0.66 MG/DL Estimat Glomerular Filtration 184 ML/MIN 159 ML/MIN Rate Random Glucose 84 MG/DL 130 MG/DL Calcium Level 9.2 MG/DL 9.1 MG/DL Phosphorus Level 2.8 MG/DL 3.0 MG/DL 2.8 MG/DL Magnesium Level 1.9 MG/DL 2.0 MG/DL Microbiology Date/Time Procedure Status Source Growth 10/09/16 20:50 Gram Stain - Final Complete Sputum Endotracheal 10/09/16 20:50 Sputum Culture - Final Complete Sputum Endotracheal HEAVY GROWTH NORMAL RESPIRATORY TERRELL 10/09/16 21:40 Aerobic Blood Culture - Preliminary Resulted Blood Peripheral NO GROWTH IN 2 DAYS 10/09/16 21:40 Anaerobic Blood Culture - Preliminary Resulted Blood Peripheral NO GROWTH IN 2 DAYS 10/09/16 21:45 Aerobic Blood Culture - Preliminary Resulted Blood Peripheral NO GROWTH IN 2 DAYS 10/09/16 21:45 Anaerobic Blood Culture - Preliminary Resulted Blood Peripheral NO GROWTH IN 2 DAYS 10/11/16 13:23 Gram Stain Received Fluid Synovial Fluid Pending 10/11/16 13:23 Body Fluid Culture Received Fluid Synovial Fluid Pending 10/11/16 13:23 Cancelled Fluid Synovial Fluid 10/11/16 13:23 Fungal Smear Received Fluid Synovial Fluid Pending 10/11/16 13:23 Fungal Culture Received Fluid Synovial Fluid Pending Imaging Last Impressions Chest X-Ray 10/11/16 0000 Signed Impressions: Service Date/Time: Tuesday, October 11, 2016 21:23 - CONCLUSION: 1. Bilateral hazy airspace disease. Differential diagnosis includes edema and aspiration. Sumit Bourgeois MD Hip Aspiration/Injection 10/08/16 0000 Signed Impressions: Service Date/Time: Tuesday, October 11, 2016 13:41 - CONCLUSION: Uncomplicated aspiration as above. Minimal fluid on the right. No identifiable fluid on the left Clayton Max MD Lower Extremity Ultrasound 10/06/16 0000 Signed Impressions: Service Date/Time: September 17:29 - CONCLUSION: Normal examination. Josafat Meyer MD CT Angiography 10/06/16 0000 Signed Impressions: Service Date/Time: September 20:31 - CONCLUSION: Minimal right upper lobe infiltrate and basilar atelectasis. No evidence of pulmonary embolism.. Josafat Meyer MD Abdomen/Pelvis CT 10/06/16 0000 Signed Impressions: Service Date/Time: September 20:31 - CONCLUSION: No evidence of pelvic abscess. Josafat Meyer MD Upper Extremity Ultrasound 09/28/16 0000 Signed Impressions: Service Date/Time: Wednesday, September 28, 2016 19:15 - CONCLUSION: 1. Occlusive superficial thrombosis in the left cephalic vein near the antecubital fossa. No deep venous thrombosis. Sumit Bourgeois MD Renal Ultrasound 08/28/16 Signed Impressions: Service Date/Time: Sunday, August 28, 2016 20:03 - CONCLUSION: Mild increased echotexture of both kidneys. Baldev Vu MD Lumbar Puncture Fluoroscopy 08/17/16 Signed Impressions: Service Date/Time: Wednesday, August 17, 2016 12:26 - CONCLUSION: Uncomplicated fluoroscopically guided lumbar puncture. Vishal Beckford Jr., MD Brain MRI 08/17/16 Signed Impressions: Service Date/Time: Wednesday, August 17, 2016 13:28 - CONCLUSION: Remote long-standing areas of abnormality in the brainstem and middle cerebellar peduncle consistent with remote infarcts or contusion. No acute intracranial abnormality. Chacho Bright MD Abdomen X-Ray 08/17/16 Signed Impressions: Service Date/Time: Wednesday, August 17, 2016 13:02 - CONCLUSION: No evidence of obstruction. No MRI incompatible foreign body is identified. Chacho Bright MD Head CT 08/16/16 Signed Impressions: Service Date/Time: Tuesday, August 16, 2016 09:55 - CONCLUSION: Chronic ischemic changes left frontal lobe possibly from evidence of previous ventriculostomy placement, unchanged. No acute intracranial abnormality. Gen Potter MD Modified Barium Swallow 08/15/16 Signed Impressions: Service Date/Time: Monday, August 15, 2016 00:00 - CONCLUSION: See report above and speech pathology report Chacho Bright MD Physical Exam GENERAL: Poorly nourished, chronically ill appearing patient. SKIN: Old scars on arms. EYES: Pupils equal round and reactive. Extraocular motions intact. No scleral icterus. No injection or drainage. ENT: moist mucosae drooling CARDIOVASCULAR: HS audible. No murmur. RESPIRATORY:. Breath sounds equal bilaterally. clear to auscultation; very shallow GASTROINTESTINAL: Abdomen soft, non-tender, minimally distended. : maurice in place with clear yellow urine MUSCULOSKELETAL: Extremities without clubbing, cyanosis, or edema. Wasting and contractures. NEUROLOGICAL: Lethargic. Not tracking Psych: unable to assess IV line sites with no e.o infection. 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 (2) Fever, and Leucocytosis: likely non infectious at this point. - procalcitonine low (3) GI bleed: from ulcer; no e/o C.diff (4) Buttock wound - no e/o infection; colonized with VRE, pseudomonas bilateral hip effusions ? septic arthritis vs avascular necrosis. sp IR guided aspiration of R hip : bloody tap 800K RBC, 100 WBC Low grade (1/) coag negative staph bactermeia, likely no clin significance Plan: Follow blood cultures Follow UA/urine cultures. Continue Zosyn IV (for aspiration) Continue Vanco IV (target for cellulitis) OK to consider course pulse steroids for neuroBeschet from ID standpoint dw Margie Kwong MD Oct 11, 2016 22:18
[2016-10-12] VITALS (14 sets, daily range): BP systolic 99–110; BP diastolic 65–71; PULSE 88–121; RESP 16–26; TEMP 96.2–99.9; O2SAT 96–100
[2016-10-12] MEDS: INSULIN NovoLIN REGULAR SUPPLEMENTAL SCALE SQ SCH ×5 (00:21→23:00)
[2016-10-12] MEDS: RESP: ALBUTEROL 2.5 MG/IPRATROPIUM 0.5 MG NEB (SCH) INH ×4 (03:43→20:29)
[2016-10-12] MEDS: CHLORHEXIDINE GLUCONATE 2 % 1 PACK (2 CLOTHS) TOP SCH (04:00)
[2016-10-12] MEDS: PIPERACIL-TAZO 4.5 GM PREMIX 100 ML IV SCH ×3 (05:56→17:07)
[2016-10-12] MEDS: METOPROLOL TARTRATE 50 MG TAB PO SCH ×2 (09:20→20:20)
[2016-10-12] MEDS: SENNOSIDES SYRUP 8.8 MG/5 ML CUP PO SCH (09:20)
[2016-10-12] MEDS: SODIUM CHLORIDE 0.9% FLUSH 10 ML FLUSH IV FLUSH SCH ×2 (09:21→20:20)
[2016-10-12] MEDS: COLLAGENASE OINT 30 GM TUBE TOP SCH (09:21)
[2016-10-12] MEDS: LANSOPRAZOLE SOLUTAB 30 MG TAB NG SCH ×2 (09:21→20:20)
[2016-10-12] MEDS: FLUoxetine HCL 10 MG CAP PO SCH (09:21)
[2016-10-12] MEDS: VANCOMYCIN INJ 1,300 MG in SODIUM CHLORID 0.9% 500 ML INJ 500 ML IV SCH ×2 (09:43→23:05)
--- NOTE | 2016-10-12 17:13 | HHI.HCPN ---
Spoke to patient's significant other, Patricia Lebron, via telephone to update her on the patient's clinical condition and provide emotional support. Patient previously endorsed that Patricia Harrells with his and would be proxy under [place] statutes. At that time he verbally (witnessed by nurse) gave permission for Patricia to make medical decisions for him should he lose capacity and act as his healthcare surrogate. Patricia continues to verbalize aggressive goals, however was willing to tentatively plan on meeting with palliative care tomorrow morning 10/13/2016. Alissa Castro Oct 12, 2016 17:13
--- NOTE | 2016-10-12 17:37 | HHI.PR ---
Subjective Remarks non verbal toleating tube feedings no purposeful movements Objective Vitals Vital Signs Date Time Temp Pulse Resp B/P Pulse Ox O2 Delivery O2 Flow Rate FiO2 10/12/16 10:46 96 Nasal Cannula 2.00 10/12/16 10:00 99 10/12/16 08:30 99.3 116 24 101/65 99 10/12/16 08:00 99 Nasal Cannula 2.00 10/12/16 08:00 116 10/12/16 06:00 99 10/12/16 04:00 96.2 91 16 99/68 100 10/12/16 04:00 100 Nasal Cannula 2.00 10/12/16 04:00 91 10/12/16 02:00 89 10/12/16 00:00 100 Nasal Cannula 2.00 10/12/16 00:00 98.2 88 24 101/67 100 10/12/16 00:00 88 10/11/16 22:00 95 10/11/16 21:46 100 Nasal Cannula 2.00 10/11/16 20:00 100 Nasal Cannula 3.00 10/11/16 20:00 101.3 128 36 117/78 100 I/O 10/11/16 10/11/16 10/11/16 10/12/16 10/12/16 10/12/16 07:00 15:00 23:00 07:00 15:00 23:00 Intake Total 1208 ml 1310 ml 1481 ml 946 ml Output Total 250 ml 650 ml 950 ml 2225 ml Balance 958 ml 660 ml 531 ml -1279 ml Intake Oral 0 ml 0 ml IV Total 753 ml 860 ml 1000 ml 627 ml Tube Feeding 395 ml 450 ml 481 ml 319 ml Other 60 ml Output Urine Total 250 ml 650 ml 650 ml 1825 ml Stool Total 300 ml 400 ml # Bowel Movements 1 Result Diagram: 10/11/16 0426 10/11/16 0426 Imaging Last Impressions Chest X-Ray 10/11/16 0000 Signed Impressions: Service Date/Time: Tuesday, October 11, 2016 21:23 - CONCLUSION: 1. Bilateral hazy airspace disease. Differential diagnosis includes edema and aspiration. Sumit Bourgeois MD Hip Aspiration/Injection 10/08/16 0000 Signed Impressions: Service Date/Time: Tuesday, October 11, 2016 13:41 - CONCLUSION: Uncomplicated aspiration as above. Minimal fluid on the right. No identifiable fluid on the left Clayton Max MD Lower Extremity Ultrasound 10/06/16 0000 Signed Impressions: Service Date/Time: September 17:29 - CONCLUSION: Normal examination. Josafat Meyer MD CT Angiography 10/06/16 Signed Impressions: Service Date/Time: September 20:31 - CONCLUSION: Minimal right upper lobe infiltrate and basilar atelectasis. No evidence of pulmonary embolism.. Josafat Meyer MD Abdomen/Pelvis CT 10/06/16 Signed Impressions: Service Date/Time: September 20:31 - CONCLUSION: No evidence of pelvic abscess. Josafat Meyer MD Upper Extremity Ultrasound 09/28/16 Signed Impressions: Service Date/Time: Wednesday, September 28, 2016 19:15 - CONCLUSION: 1. Occlusive superficial thrombosis in the left cephalic vein near the antecubital fossa. No deep venous thrombosis. Sumit Bourgeois MD Renal Ultrasound 08/28/16 Signed Impressions: Service Date/Time: Sunday, August 28, 2016 20:03 - CONCLUSION: Mild increased echotexture of both kidneys. Baldev Vu MD Lumbar Puncture Fluoroscopy 08/17/16 0000 Signed Impressions: Service Date/Time: Wednesday, August 17, 2016 12:26 - CONCLUSION: Uncomplicated fluoroscopically guided lumbar puncture. Vishal Beckford Jr., MD Brain MRI 08/17/16 0000 Signed Impressions: Service Date/Time: Wednesday, August 17, 2016 13:28 - CONCLUSION: Remote long-standing areas of abnormality in the brainstem and middle cerebellar peduncle consistent with remote infarcts or contusion. No acute intracranial abnormality. Chacho Bright MD Abdomen X-Ray 08/17/16 0000 Signed Impressions: Service Date/Time: Wednesday, August 17, 2016 13:02 - CONCLUSION: No evidence of obstruction. No MRI incompatible foreign body is identified. Chacho Bright MD Head CT 08/16/16 0000 Signed Impressions: Service Date/Time: Tuesday, August 16, 2016 09:55 - CONCLUSION: Chronic ischemic changes left frontal lobe possibly from evidence of previous ventriculostomy placement, unchanged. No acute intracranial abnormality. 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 Lay - plan for another IV steroid trial - d/w ID Dr Reyes- cleared for trial pulse steroid trial EEG 10/09- mild- mod encephalopathy -On Prozac 10mg daily PULMONOLOGY Continue O2 maintain O2 sats > 92%, Bronchodilators scheduled every 6 hours, every 2 hours when necessary -10/09 Chest x-ray-no acute disease -09/26-CTA-no PE -- needs frequent suctioning CARDIOLOGY Sinus tachycardia Increase Lopressor 50 mg BID for rate control-monitor HR and BP keep MAP>65mmHg --response to sepsis GASTROENTEROLOGY GI bleed-resolved Continue with Protonix 40 -s/p EGD 09/25 no signs of active bleeding -S/p transfusion 3units PRBC overnight on 09/26 monitor H/H. -09/26 CT abdomen/pelvis showed no acute findings -Colonoscopy done on 09/27 with no active bleeding. S/P PEG placement RENAL Monitor renal function, I/O's, electrolyte replacement protocol. Hypokalemia - oral replacement protocol INFECTION DISEASE Sepsis Persistent Leukocytosis Right upper lung pneumonia-resolved Sacral decubitus-colonized VRE, pseudomonas S/P hip aspiration by IR 10/11 Continue with abx per ID (vancomycin and Zosyn) Pancultured 10/09 CT abdomen/pelvis 09/26: No acute findings Pertinent cultures 09/25 C-diff PCR negative 09/10/16 Wound culture from sacral decubitus: Pseudo-fluoresceins/[place], enterococcus faecalis, enterococcus faecium VRE 08/26/16 urine culture with Daphney parapsilosis ID following Dr. Reyes Blood culture-staph epi(possible contaminant) on 10/05 FF fluid studies from hip aspiration Ortho is following ENDOCRINOLOGY SSI for glycemic control HEMATOLOGY Monitor CBC PROPHYLAXIS Prevacid 30mg BID for GI protection SCD for DVT prophylaxis, -Doppler US LE 10/06: No DVT -Doppler US UE 09/28: Occlusive superficial thrombosis in the left cephalic vein near the antecubital fossa. No DVT LINES Peripheral IVs Problem Qualifiers (1) GI bleed: Qualified Code: K92.2 - Gastrointestinal hemorrhage, unspecified gastrointestinal hemorrhage type (2) UTI (urinary tract infection): Qualified Code: N30.00 - Acute cystitis without hematuria (3) Effusion of hip joint: Qualified Code: M25.459 - Effusion of hip joint, unspecified laterality Janine Gudino MD Oct 12, 2016 17:37
[2016-10-12] MEDS: IBUPROFEN SUSP 100 MG/5 ML UDC PEG PRN (20:20)
--- NOTE | 2016-10-12 21:04 | EC ---
Study Study Date:10/12/2016 STUDY CONCLUSIONS SUMMARY - Left ventricle: The cavity size was mildly dilated. Wall thickness was normal. Systolic function was mildly reduced. The estimated ejection fraction was 45%. Wall motion was normal; there were no regional wall motion abnormalities. - Tricuspid valve: Mild regurgitation. - Pericardium, extracardiac: There wassmall pericardial effusion. If LV function is below 40, please consider prescribing an ACEI or ARB or document rationale for non-use. PROCEDURE DATA STUDY STATUS: Elective. Procedure: Transthoracic echocardiography. Image quality was good. Scanning was performed from the parasternal, apical, and subcostal acoustic windows. Study completion: The patient tolerated the procedure well. Transthoracic echocardiography. M-mode, complete 2D, complete spectral Doppler, and color Doppler. Height: Height: 72in. Weight: Weight: 139.7lb. Body mass index: BMI: 19kg/m^2. Body surface area: BSA: 1.83m^2. Patient status: Inpatient. CARDIAC ANATOMY LEFT VENTRICLE: The cavity size was mildly dilated. Wall thickness was normal. Systolic function was mildly reduced. The estimated ejection fraction was 45%. Wall motion was normal; there were no regional wall motion abnormalities. AORTIC VALVE: Trileaflet; normal thickness leaflets. Doppler: Transvalvular velocity was within the normal range. There was no stenosis. No regurgitation. AORTA: Aortic root: The aortic root was normal in size. MITRAL VALVE: Structurally normal valve. Doppler: Transvalvular velocity was within the normal range. There was no evidence for stenosis. No regurgitation. LEFT ATRIUM: The atrium was normal in size. RIGHT VENTRICLE: The cavity size was normal. Wall thickness was normal. PULMONIC VALVE: Doppler: Transvalvular velocity was within the normal range. There was no evidence for stenosis. No regurgitation. TRICUSPID VALVE: Structurally normal valve. Doppler: Transvalvular velocity was within the normal range. Mild regurgitation. PULMONARY ARTERY: The main pulmonary artery was normal-sized. Systolic pressure was within the normal range. RIGHT ATRIUM: The atrium was normal in size. PERICARDIUM: There wassmall pericardial effusion. SYSTEMIC VEINS: Inferior vena cava: The vessel was normal in size. Patient weight: 139.7lb _Ejection fraction:_ 65-75% _Fractional shortening:_ 32% up to 5Kg 5-11.5Kg 11.6-22.9Kg 23-45Kg 45-57Kg Aortic Root 7-13 <17 13-22 17-27 17-27 LA diam 6-13 <23 24-38 33-47 37-40 RVID 10-17 7-15 7-15 7-18 8-17 LVIDd 12-22 <32 24-38 33-47 37-40 LVPW 2-4 3-6 5-7 6-8 7-8 IVS 2-4 3-6 5-7 6-8 7-8 BASIC MEASUREMENTS ADULT Normal Left ventricle LV internal dimension, ED, chordal level, 49.4 mm 43-52 PLAX LV internal dimension, ES, chordal level, *40.8 mm 23-38 PLAX Fractional shortening, chordal level, PLAX *17 % >29 LV posterior wall thickness, ED 9.6 mm IVS/LVPW ratio, ED 0.99 <1.3 Ventricular septum Septal thickness, ED 9.5 mm Aortic valve Leaflet separation 16 mm 15-26 Left atrium Anterior-posterior dimension 27 mm Anterior-posterior dimension index 1.48 cm/m^2 <2.2 BASIC MEASUREMENTS ADULT Normal Aortic valve Leaflet separation 16 mm 15-26 Aorta Root diameter, ED 22 mm 20-37 DOPPLER MEASUREMENTS ADULT Normal Main pulmonary artery Pressure, S 30 mm Hg =30 Pressure, ED 14 mm Hg Tricuspid valve Regurgitant peak velocity 223 cm/s Peak RV-RA gradient, S 20 mm Hg Maximal regurgitant velocity 223 cm/s Systemic veins Estimated CVP 10 mm Hg Right ventricle RV pressure, S *35 mm Hg <30 Pulmonic valve Peak velocity, S 107 cm/s Regurgitant velocity, ED 103 cm/s LEGEND: Mean values are shown as u=mean value. Asterisk (*) barfield values outside specified normal range. Art Méndez [id number]
[2016-10-13] VITALS (14 sets, daily range): BP systolic 102–129; BP diastolic 65–89; PULSE 91–110; RESP 18–21; TEMP 97.7–98.9; O2SAT 94–100
[2016-10-13] MEDS: PIPERACIL-TAZO 4.5 GM PREMIX 100 ML IV SCH ×5 (00:29→23:38)
[2016-10-13] MEDS: CHLORHEXIDINE GLUCONATE 2 % 1 PACK (2 CLOTHS) TOP SCH (00:29)
[2016-10-13] MEDS: RESP: ALBUTEROL 2.5 MG/IPRATROPIUM 0.5 MG NEB (SCH) INH ×2 (03:06→08:18)
[2016-10-13] MEDS: INSULIN NovoLIN REGULAR SUPPLEMENTAL SCALE SQ SCH ×4 (05:00→21:26)
[2016-10-13] MEDS: FLUoxetine HCL 10 MG CAP PO SCH (09:00)
[2016-10-13] MEDS: SODIUM CHLORIDE 0.9% FLUSH 10 ML FLUSH IV FLUSH SCH ×2 (09:00→21:26)
--- NOTE | 2016-10-13 09:15 | HHI.IDPN ---
Subjective Subjective Remarks is a 46 AAM with NeuroBehcet's disease, difficult placement and not safe discharge so continues to reside at [facility]. pt remains lethargic, not tracking like days before. Maurice changed. Liquid stools Cdiff negative. Gurgles: concerning for aspiration given change in mentation. Drooling clear resp secretions minimally responsive fever up to 100.9 Antibiotics Zosyn IV vancomycin IV Lines Line sites with no e.o infection Past Medical History reviewed Allergies: Coded Allergies: *MDRO Multi-Drug Resistant Organism (Verified Adverse Reaction, Unknown, ) VRE (buttock)-09/20/16 Uncoded Allergies: ADHESIVE TAPE (Allergy, Severe, 09/21/16) BLISTERS Objective . Vital Signs Date Time Temp Pulse Resp B/P Pulse Ox O2 Delivery O2 Flow Rate FiO2 10/13/16 08:19 99 Nasal Cannula 2.00 10/13/16 06:00 104 10/13/16 04:00 97.9 102 20 105/67 100 10/13/16 04:00 100 Nasal Cannula 2.00 10/13/16 04:00 102 10/13/16 02:00 94 10/13/16 00:00 97.8 91 20 102/66 100 10/13/16 00:00 100 Nasal Cannula 2.00 10/13/16 00:00 91 10/12/16 22:00 96 10/12/16 20:29 100 Nasal Cannula 2.00 10/12/16 20:00 99.9 121 26 110/68 98 10/12/16 20:00 121 10/12/16 20:00 98 Nasal Cannula 2.00 10/12/16 18:00 117 10/12/16 16:00 99 Nasal Cannula 2.00 10/12/16 16:00 110 10/12/16 16:00 99.9 110 25 106/71 98 10/12/16 12:00 99.5 104 25 99/67 98 10/12/16 12:00 104 10/12/16 12:00 99 Nasal Cannula 2.00 10/12/16 10:46 96 Nasal Cannula 2.00 10/12/16 10:00 99 10/12/16 10/12/16 10/13/16 15:00 23:00 07:00 Intake Total 1230 ml 812 ml 1325 ml Output Total 600 ml 500 ml 650 ml Balance 630 ml 312 ml 675 ml IV Total 606 ml 235 ml 698 ml Tube Feeding 624 ml 517 ml 527 ml Other 60 ml 100 ml Output Urine Total 500 ml 400 ml 550 ml Stool Total 100 ml 100 ml 100 ml . Microbiology Date/Time Procedure Status Source Growth 10/11/16 13:23 Gram Stain - Final Resulted Fluid Synovial Fluid 10/11/16 13:23 Body Fluid Culture - Preliminary Resulted Fluid Synovial Fluid NO GROWTH IN 48 HOURS. 10/11/16 13:23 Cancelled Fluid Synovial Fluid 10/11/16 13:23 Fungal Smear - Final Resulted Fluid Synovial Fluid NO FUNGAL ELEMENTS SEEN. 10/11/16 13:23 Fungal Culture Resulted Fluid Synovial Fluid Pending Imaging Last Impressions Chest X-Ray 10/11/16 Signed Impressions: Service Date/Time: Tuesday, October 11, 2016 21:23 - CONCLUSION: 1. Bilateral hazy airspace disease. Differential diagnosis includes edema and aspiration. Sumit Bourgeois MD Hip Aspiration/Injection 10/08/16 Signed Impressions: Service Date/Time: Tuesday, October 11, 2016 13:41 - CONCLUSION: Uncomplicated aspiration as above. Minimal fluid on the right. No identifiable fluid on the left Clayton Max MD Lower Extremity Ultrasound 10/06/16 Signed Impressions: Service Date/Time: September 17:29 - CONCLUSION: Normal examination. Josafat Meyer MD CT Angiography 10/06/16 Signed Impressions: Service Date/Time: September 20:31 - CONCLUSION: Minimal right upper lobe infiltrate and basilar atelectasis. No evidence of pulmonary embolism.. Josafat Meyer MD Abdomen/Pelvis CT 10/06/16 Signed Impressions: Service Date/Time: September 20:31 - CONCLUSION: No evidence of pelvic abscess. Josafat Meyer MD Upper Extremity Ultrasound 09/28/16 Signed Impressions: Service Date/Time: Wednesday, September 28, 2016 19:15 - CONCLUSION: 1. Occlusive superficial thrombosis in the left cephalic vein near the antecubital fossa. No deep venous thrombosis. Sumit Bourgeois MD Renal Ultrasound 08/28/16 Signed Impressions: Service Date/Time: Sunday, August 28, 2016 20:03 - CONCLUSION: Mild increased echotexture of both kidneys. Baldev Vu MD Lumbar Puncture Fluoroscopy 08/17/16 0000 Signed Impressions: Service Date/Time: Wednesday, August 17, 2016 12:26 - CONCLUSION: Uncomplicated fluoroscopically guided lumbar puncture. Vishal Beckford Jr., MD Brain MRI 08/17/16 0000 Signed Impressions: Service Date/Time: Wednesday, August 17, 2016 13:28 - CONCLUSION: Remote long-standing areas of abnormality in the brainstem and middle cerebellar peduncle consistent with remote infarcts or contusion. No acute intracranial abnormality. Chacho Bright MD Abdomen X-Ray 08/17/16 0000 Signed Impressions: Service Date/Time: Wednesday, August 17, 2016 13:02 - CONCLUSION: No evidence of obstruction. No MRI incompatible foreign body is identified. Chacho Bright MD Head CT 08/16/16 0000 Signed Impressions: Service Date/Time: Tuesday, August 16, 2016 09:55 - CONCLUSION: Chronic ischemic changes left frontal lobe possibly from evidence of previous ventriculostomy placement, unchanged. No acute intracranial abnormality. Gen Potter MD Modified Barium Swallow 08/15/16 0000 Signed Impressions: Service Date/Time: Monday, August 15, 2016 00:00 - CONCLUSION: See report above and speech pathology report Chacho Bright MD Physical Exam GENERAL: Poorly nourished, chronically ill appearing patient. SKIN: Old scars on arms. EYES: Pupils equal round and reactive. Extraocular motions intact. No scleral icterus. No injection or drainage. ENT: moist mucosae drooling CARDIOVASCULAR: HS audible. No murmur. RESPIRATORY:. Breath sounds equal bilaterally. clear to auscultation; very shallow GASTROINTESTINAL: Abdomen soft, non-tender, minimally distended. : maurice in place with clear yellow urine MUSCULOSKELETAL: Extremities without clubbing, cyanosis, or edema. Wasting and contractures. NEUROLOGICAL: Lethargic. Not tracking Psych: unable to assess IV line sites with no e.o infection. 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 (2) Fever, and Leucocytosis: likely non infectious at this point. - procalcitonine low (3) GI bleed: from ulcer; no e/o C.diff (4) Buttock wound - no e/o infection; colonized with VRE, pseudomonas bilateral hip effusions ? septic arthritis vs avascular necrosis. sp IR guided aspiration of R hip : bloody tap 800K RBC, 100 WBC Low grade (1/) coag negative staph bactermeia, likely no clin significance Plan: Follow blood cultures Follow UA/urine cultures. Continue Zosyn IV (for aspiration) DC Vanco IV OK to consider course pulse steroids for neuroBeschet from ID standpoint dw RN, d.w about d/w Neuro to start IV steroids. I will be OOT from 10/15/2016 to 10/17/2016 Dr. Parson to cover for me. Berna Reyes MD Oct 13, 2016 09:15
[2016-10-13] MEDS: METOPROLOL TARTRATE 50 MG TAB PO SCH ×2 (09:17→21:26)
[2016-10-13] MEDS: LANSOPRAZOLE SOLUTAB 30 MG TAB NG SCH ×2 (09:17→21:26)
[2016-10-13] MEDS: SENNOSIDES SYRUP 8.8 MG/5 ML CUP PO SCH (09:17)
[2016-10-13] MEDS: COLLAGENASE OINT 30 GM TUBE TOP SCH (09:18)
[2016-10-13] MEDS: methylPREDNISolone SOD SUCC 125 MG/2 ML VIAL IV SCH ×3 (12:27→23:37)
--- NOTE | 2016-10-13 13:25 | HHI.HCPN ---
Reason for visit a. To assist with evaluation and management of symptoms including: debility, encephalopathy b. To assist medical decision maker(s) with: better understanding of current medical conditions; weighing benefits/burdens of medical treatment options; making medical treatment decisions. . Subjective/Interval History Patient was seen and assessed in room 504, non-verbal. Eyes are open, but do not track. + Nystagmus. No purposeful movement. Flexion contractures in bilateral lower extremities. Patient having intermittent fevers. WBC of 16.4. Blood cultures growing staph epidermidis on 10/05/16. Follow-up cultures negative. Synovial fluid cultures negative. Patient with a history of effusion status post ultrasound guided right hip aspirationcytology pending. Infectious disease continues to follow. Remains on IV Zosyn, vancomycin was discontinued. Follow-up chest x-ray on 10/11/16 revealed bilateral hazy airspace disease, differential diagnosis includes edema and aspiration. Neurology consult pending. . Family/friend interactions Patient's significant other was not present at tentatively scheduled meeting with Palliative Care this morning at 10:30am. Attempted to contact via telephone , but there was no answer. Discussed with patient's nurse, Ning. . Advance Directives Living Will: Never completed Health Care Surrogate: Copy in medical record Durable Power of Passport Support Associate: Never completed Advance Directive Specifics Health Care Surrogate(s): No living will or healthcare surrogate designation found in medical records. Patricia Harrell acting as healthcare proxy. Unclear at this time if they are legally . . Documented care wishes: No living well documented. Objective Vital Signs Date Time Temp Pulse Resp B/P Pulse Ox O2 Delivery O2 Flow Rate FiO2 10/13/16 10:00 91 10/13/16 08:19 99 Nasal Cannula 2.00 10/13/16 08:00 98.9 110 20 109/74 100 10/13/16 08:00 110 10/13/16 08:00 100 Nasal Cannula 2.00 10/13/16 06:00 104 10/13/16 04:00 97.9 102 20 105/67 100 10/13/16 04:00 100 Nasal Cannula 2.00 10/13/16 04:00 102 10/13/16 02:00 94 10/13/16 00:00 97.8 91 20 102/66 100 10/13/16 00:00 100 Nasal Cannula 2.00 10/13/16 00:00 91 10/12/16 22:00 96 10/12/16 20:29 100 Nasal Cannula 2.00 10/12/16 20:00 99.9 121 26 110/68 98 10/12/16 20:00 121 10/12/16 20:00 98 Nasal Cannula 2.00 10/12/16 18:00 117 10/12/16 16:00 99 Nasal Cannula 2.00 10/12/16 16:00 110 10/12/16 16:00 99.9 110 25 106/71 98 Intake & Output 10/13/16 10/13/16 07:00 19:00 Intake Total 2137 ml Output Total 1150 ml Balance 987 ml IV Total 933 ml Tube Feeding 1044 ml Other 160 ml Output Urine Total 950 ml Stool Total 200 ml . Physical Exam CONSTITUTIONAL/GENERAL: This is a thin, middle aged male patient in no acute distress TUBES/LINES/DRAINS: PIV's, PEG tube, condom catheter, taking a shield SKIN: No jaundice. Skin temperature appropriate. Not diaphoretic. HEAD: Atraumatic. Normocephalic. EYES: Pupils equal and round and reactive. + Nystagmus ENT: Unable to assess hearing secondary to responsiveness. Nose without bleeding or purulent drainage. Moderate amount of oral clear secretions. NECK: Trachea midline. Supple, nontender. CARDIOVASCULAR: Tachycardic. No Murmurs, gallops, or rubs. No JVD. Peripheral pulses symmetric. RESPIRATORY/CHEST: Shallow respirations with diminished air exchange laterally, scattered rhonchi. GASTROINTESTINAL: Abdomen soft, non-tender, nondistended. PEG tube in place. No guarding. Bowel sounds present. GENITOURINARY: Without palpable bladder distension. Condom catheter draining clear yellow urine MUSCULOSKELETAL: Extremities without clubbing, cyanosis, or edema. Muscle wasting noted. Flexion contractures in bilateral lower extremities. NEUROLOGICAL: Encephalopathic. Nonverbal. Does not track with eyes. No purposeful movement observed. PSYCHIATRIC: Unable to assess secondary to patient's level of responsiveness . Diagnostic Tests Laboratory Laboratory Tests Test 10/11/16 10/11/16 10/11/16 10/11/16 00:30 04:26 13:23 21:24 Vancomycin Level Trough 10.8 MCG/ML (5.0-10.0) White Blood Count 16.4 TH/MM3 (4.0-11.0) Red Blood Count 3.17 MIL/MM3 (4.50-5.90) Hemoglobin 8.6 GM/DL (13.0-17.0) Hematocrit 27.8 % (39.0-51.0) Mean Corpuscular Volume 87.7 FL (80.0-100.0) Mean Corpuscular Hemoglobin 27.2 PG (27.0-34.0) Mean Corpuscular Hemoglobin 31.0 % Concent (32.0-36.0) Red Cell Distribution Width 15.8 % (11.6-17.2) Platelet Count 413 TH/MM3 (150-450) Mean Platelet Volume 8.3 FL (7.0-11.0) Neutrophils (%) (Auto) 86.5 % (16.0-70.0) Lymphocytes (%) (Auto) 7.0 % (9.0-44.0) Monocytes (%) (Auto) 5.2 % (0.0-8.0) Eosinophils (%) (Auto) 1.0 % (0.0-4.0) Basophils (%) (Auto) 0.3 % (0.0-2.0) Neutrophils # (Auto) 14.2 TH/MM3 (1.8-7.7) Lymphocytes # (Auto) 1.1 TH/MM3 (1.0-4.8) Monocytes # (Auto) 0.9 TH/MM3 (0-0.9) Eosinophils # (Auto) 0.2 TH/MM3 (0-0.4) Basophils # (Auto) 0.1 TH/MM3 (0-0.2) CBC Comment DIFF FINAL Differential Comment Sodium Level 139 MEQ/L (136-145) Potassium Level 3.3 MEQ/L (3.5-5.1) Chloride Level 102 MEQ/L (98-107) Carbon Dioxide Level 29.1 MEQ/L (21.0-32.0) Anion Gap 8 MEQ/L (5-15) Blood Urea Nitrogen 8 MG/DL (7-18) Creatinine 0.66 MG/DL (0.60-1.30) Estimat Glomerular Filtration 159 ML/MIN Rate (>89) Random Glucose 130 MG/DL (74-106) Calcium Level 9.1 MG/DL (8.5-10.1) Phosphorus Level 2.8 MG/DL (2.5-4.9) Magnesium Level 2.0 MG/DL (1.5-2.5) Synovial Fluid Color RED (STRAW) Synovial Fluid Appearance MARKED (CLEAR) Synovial Fluid WBC 100 /MM3 (0-200) Synovial Fluid RBC 784412 /MM3 (0-0) Synovial Fluid Neutrophils 94 % (0-25) Synovial Fluid Lymphocytes 6 % Blood Gas Puncture Site RT RADIAL Blood Gas Patient Temperature 98.6 Blood Gas HCO3 28 mmol/L (22-26) Blood Gas Base Excess 3.4 mmol/L (-2-2) Blood Gas Oxygen Saturation 95 % (90-100) Arterial Blood pH 7.39 (7.380-7.420) Arterial Blood Partial 47 mmHg (38-42) Pressure CO2 Arterial Blood Partial 105 mmHg Pressure O2 (61-120) Arterial Blood Oxygen Content 10.8 Vol % (12.0-20.0) Arterial Blood 1.7 % (0-4) Carboxyhemoglobin Arterial Blood Methemoglobin 1.1 % (0-2) Blood Gas Hemoglobin 7.9 G/DL (12.0-16.0) Oxygen Delivery Device NASAL CANNULA Blood Gas Liter Flow 2 L/M Blood Gas Inspired Oxygen 28 % . Result Diagram: 10/11/16 0426 10/11/16 0426 Microbiology Microbiology Date/Time Procedure Status Source Growth 10/11/16 13:23 Gram Stain - Final Resulted Fluid Synovial Fluid 10/11/16 13:23 Body Fluid Culture - Preliminary Resulted Fluid Synovial Fluid NO GROWTH IN 48 HOURS. 10/11/16 13:23 Cancelled Fluid Synovial Fluid 10/11/16 13:23 Fungal Smear - Final Resulted Fluid Synovial Fluid NO FUNGAL ELEMENTS SEEN. 10/11/16 13:23 Fungal Culture Resulted Fluid Synovial Fluid Pending . Imaging Last 72 hours Impressions Chest X-Ray 10/11/16 0000 Signed Impressions: Service Date/Time: Tuesday, October 11, 2016 21:23 - CONCLUSION: 1. Bilateral hazy airspace disease. Differential diagnosis includes edema and aspiration. Sumit Bourgeois MD . Procedures * 08/19/16 -PEG tube placement * 08/17/16- lumbar puncture * 10/11/16ultrasound guided aspiration, right hip region. . 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 Now bed bound , completely dependent for all ADLs. Receiving artificial nutrition via PEG tube. Flexion contractures in bilateral lower extremities. (2) Encephalopathy Comment: Patient with diagnosis of neuro-behcet. Patient is bed bound, non- verbal. Eyes are open, but do not track. No purposeful movement. Pertinent Non-Medical Issues Psychosocial: Reported as . Unknown if he has any children. Spiritual: No spiritual affiliations. Legal: No living will or advanced directives found in medical records. Patricia Harrell presented as and has been acting as healthcare proxy. Ethical issues impacting care: No living will or advanced directives found in medical records. Patricia Harrell presented as and has been acting as healthcare proxy. . Important Contacts Patricia Mendoza. [phone]. . Prognosis Mr. 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 Patient presented to the ED on 08/13/16 via EMS were reports of decreased oral intake for the prior 2-3 days and skin tear to left upper extremity. He was admitted for sepsis. Patient is at high risk for further complications, continue decline and . His diagnosis of neuro- Behcet's syndrome was done at [facility]. Code Status: Full Code Plan * FULL CODE-patient previously endorsed his desire to remain a full code. * Decision-making: Patient is currently not capacitated to participate in medical decision making. On , the patient endorsed that Patricia Harrells with his and would be proxy under [place] statutes. At that time he verbally gave permission for Patricia to make medical decisions for him should he lose capacity and act as his healthcare surrogate. Patient also gave verbal approval for Patricia to sign consents for medical procedures. It was difficult for him to sign documents secondary to his neuro muscular deficits and contractures. Conversation was witnessed by nurses, history and Karen. * Goals: Goals remain aggressive. * In reviewing notes, the patient nodded yes to full code and blood transfusions in early September 2016. At that time the patient is undecided about a tracheostomy, but stated he did not want to be on the mechanical ventilator for a * Symptom managementdebility: Progressive secondary to Neuro-Behcet's syndrome , CVA. Now bed bound, completely dependent for all ADLs. Receiving artificial nutrition via PEG tube. Flexion contractures in bilateral lower extremities. No recommendations at this time. * Patient's significant other was not present at tentatively scheduled meeting with Palliative Care this morning at 10:30am. Attempted to contact via telephone , but there was no answer. Discussed with patient's nurse, Ning. * Case management spoke with Gustavo Louis on 10/12/16 who is assisting with the application process for Medicaid along with Jocelyn from [facility]. * Palliative care will continue to follow-up with this patient and family as needed for clarifications of goals of care and support during this difficult time. . Attestation To help prompt me to consider important information that might be impacting today's encounter and assessment, information from prior notes written by myself or my colleagues may have been "brought forward" into today's note. My signature on this note, however, is an attestation that I personally performed the exam, history, and/or decision-making noted today, and, unless otherwise indicated, the interactions with patient, family, and staff as well as the review of records all occurred today. I also attest that the listed assessment and stated plan reflect my best clinical judgment today based on the combination of historical information, prior notes, and today's exam/ interactions. When time spent is documented, it refers only to time spent today by the signer, or if indicated, combined time spent today by collaborating physician/nurse practitioner. . Alissa Castro Oct 13, 2016 13:25
[2016-10-13] MEDS: ACETAMINOPHEN/HYDROcodone 325 MG/5 MG TAB PEG PRN ×2 (17:49→21:26)
--- NOTE | 2016-10-13 18:12 | HHI.PR ---
Subjective Remarks patient eyes open needs frequent suctioning tolerating tube feedings Objective Vitals Vital Signs Date Time Temp Pulse Resp B/P Pulse Ox O2 Delivery O2 Flow Rate FiO2 10/13/16 16:00 103 10/13/16 16:00 98 Nasal Cannula 2.00 10/13/16 16:00 97.7 103 21 129/89 98 10/13/16 14:00 97 10/13/16 12:00 97.9 100 18 112/79 100 10/13/16 12:00 100 Nasal Cannula 2.00 10/13/16 12:00 100 10/13/16 10:00 91 10/13/16 08:19 99 Nasal Cannula 2.00 10/13/16 08:00 98.9 110 20 109/74 100 10/13/16 08:00 110 10/13/16 08:00 100 Nasal Cannula 2.00 10/13/16 06:00 104 10/13/16 04:00 97.9 102 20 105/67 100 10/13/16 04:00 100 Nasal Cannula 2.00 10/13/16 04:00 102 10/13/16 02:00 94 10/13/16 00:00 97.8 91 20 102/66 100 10/13/16 00:00 100 Nasal Cannula 2.00 10/13/16 00:00 91 10/12/16 22:00 96 10/12/16 20:29 100 Nasal Cannula 2.00 10/12/16 20:00 99.9 121 26 110/68 98 10/12/16 20:00 121 10/12/16 20:00 98 Nasal Cannula 2.00 I/O 10/12/16 10/12/16 10/12/16 10/13/16 10/13/16 10/13/16 07:00 15:00 23:00 07:00 15:00 23:00 Intake Total 946 ml 1230 ml 812 ml 1325 ml 845 ml Output Total 2225 ml 600 ml 500 ml 650 ml 1075 ml Balance -1279 ml 630 ml 312 ml 675 ml -230 ml Intake Oral 0 ml IV Total 627 ml 606 ml 235 ml 698 ml 159 ml Tube Feeding 319 ml 624 ml 517 ml 527 ml 586 ml Tube Irrigant 100 ml Other 60 ml 100 ml Output Urine Total 1825 ml 500 ml 400 ml 550 ml 875 ml Stool Total 400 ml 100 ml 100 ml 100 ml 200 ml Result Diagram: 10/11/16 0426 10/11/16 0426 Imaging Last Impressions Chest X-Ray 10/11/16 0000 Signed Impressions: Service Date/Time: Tuesday, October 11, 2016 21:23 - CONCLUSION: 1. Bilateral hazy airspace disease. Differential diagnosis includes edema and aspiration. Sumit Bourgeois MD Hip Aspiration/Injection 10/08/16 0000 Signed Impressions: Service Date/Time: Tuesday, October 11, 2016 13:41 - CONCLUSION: Uncomplicated aspiration as above. Minimal fluid on the right. No identifiable fluid on the left Clayton Max MD Lower Extremity Ultrasound 10/06/16 0000 Signed Impressions: Service Date/Time: September 17:29 - CONCLUSION: Normal examination. Josafat Meyer MD CT Angiography 10/06/16 0000 Signed Impressions: Service Date/Time: September 20:31 - CONCLUSION: Minimal right upper lobe infiltrate and basilar atelectasis. No evidence of pulmonary embolism.. Josafat Meyer MD Abdomen/Pelvis CT 10/06/16 0000 Signed Impressions: Service Date/Time: September 20:31 - CONCLUSION: No evidence of pelvic abscess. Josafat Meyer MD Upper Extremity Ultrasound 09/28/16 0000 Signed Impressions: Service Date/Time: Wednesday, September 28, 2016 19:15 - CONCLUSION: 1. Occlusive superficial thrombosis in the left cephalic vein near the antecubital fossa. No deep venous thrombosis. Sumit Bourgeois MD Renal Ultrasound 08/28/16 0000 Signed Impressions: Service Date/Time: Sunday, August 28, 2016 20:03 - CONCLUSION: Mild increased echotexture of both kidneys. Baldev Vu MD Lumbar Puncture Fluoroscopy 08/17/16 0000 Signed Impressions: Service Date/Time: Wednesday, August 17, 2016 12:26 - CONCLUSION: Uncomplicated fluoroscopically guided lumbar puncture. Vishal Beckford Jr., MD Brain MRI 08/17/16 0000 Signed Impressions: Service Date/Time: Wednesday, August 17, 2016 13:28 - CONCLUSION: Remote long-standing areas of abnormality in the brainstem and middle cerebellar peduncle consistent with remote infarcts or contusion. No acute intracranial abnormality. Chacho Bright MD Abdomen X-Ray 08/17/16 0000 Signed Impressions: Service Date/Time: Wednesday, August 17, 2016 13:02 - CONCLUSION: No evidence of obstruction. No MRI incompatible foreign body is identified. Chacho Bright MD Head CT 08/16/16 0000 Signed Impressions: Service Date/Time: Tuesday, August 16, 2016 09:55 - CONCLUSION: Chronic ischemic changes left frontal lobe possibly from evidence of previous ventriculostomy placement, unchanged. No acute intracranial abnormality. Gen Potter MD Modified Barium Swallow 08/15/16 0000 Signed Impressions: Service Date/Time: Monday, August 15, 2016 00:00 - CONCLUSION: See report above and speech pathology report Chacho Bright MD Objective Remarks eyes open but not interactive anicteric neck supple lungs no rales or wheezes regular rhythm, tachycardic abdomen- PEG in place condom catheter dignishield extremities- flexion contractures 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 (4) GI bleed ICD Code: K92.2 Status: Resolved (5) HCAP (healthcare-associated pneumonia) ICD Code: J18.9 Status: Resolved (6) UTI (urinary tract infection) ICD Code: N39.0 Status: Resolved (7) Leucocytosis ICD Code: D72.829 Status: Acute (8) Fever ICD Code: R50.9 Status: Acute (9) Effusion of hip joint ICD Code: M25.459 Status: Acute Assessment and Plan NEUROLOGY 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 Lay - plan for another IV steroid trial - d/w ID Dr Reyes- cleared for trial pulse steroid trial EEG 10/09- mild- mod encephalopathy -On Prozac 10mg daily PULMONOLOGY Continue O2 maintain O2 sats > 92%, Bronchodilators scheduled every 6 hours, every 2 hours when necessary -10/09 Chest x-ray-no acute disease -09/26-CTA-no PE -- needs frequent suctioning CARDIOLOGY Sinus tachycardia Increase Lopressor 50 mg BID for rate control-monitor HR and BP keep MAP>65mmHg --response to sepsis GASTROENTEROLOGY GI bleed-resolved Continue with Protonix 40 -s/p EGD 09/25 no signs of active bleeding -S/p transfusion 3units PRBC overnight on 09/26 monitor H/H. -09/26 CT abdomen/pelvis showed no acute findings -Colonoscopy done on 09/27 with no active bleeding. S/P PEG placement RENAL Monitor renal function, I/O's, electrolyte replacement protocol. Hypokalemia - oral replacement protocol INFECTION DISEASE Sepsis Persistent Leukocytosis Right upper lung pneumonia-resolved Sacral decubitus-colonized VRE, pseudomonas S/P hip aspiration by IR 10/11 Continue with abx per ID (vancomycin and Zosyn) Pancultured 10/09 CT abdomen/pelvis 09/26: No acute findings Pertinent cultures 09/25 C-diff PCR negative 09/10/16 Wound culture from sacral decubitus: Pseudo-fluoresceins/[place], enterococcus faecalis, enterococcus faecium VRE 08/26/16 urine culture with Daphney parapsilosis ID following Dr. Reyes Blood culture-staph epi(possible contaminant) on 10/05 FF fluid studies from hip aspiration Ortho is following ENDOCRINOLOGY SSI for glycemic control HEMATOLOGY Monitor CBC PROPHYLAXIS Prevacid 30mg BID for GI protection SCD for DVT prophylaxis, -Doppler US LE 10/06: No DVT -Doppler US UE 09/28: Occlusive superficial thrombosis in the left cephalic vein near the antecubital fossa. No DVT LINES Peripheral IVs Problem Qualifiers (1) GI bleed: Qualified Code: K92.2 - Gastrointestinal hemorrhage, unspecified gastrointestinal hemorrhage type (2) UTI (urinary tract infection): Qualified Code: N30.00 - Acute cystitis without hematuria (3) Effusion of hip joint: Qualified Code: M25.459 - Effusion of hip joint, unspecified laterality Janine Gudino MD Oct 13, 2016 18:12
[2016-10-14] VITALS (12 sets, daily range): BP systolic 104–121; BP diastolic 78–84; PULSE 96–114; RESP 14–20; TEMP 98–98.7; O2SAT 97–100
[2016-10-14] MEDS: CHLORHEXIDINE GLUCONATE 2 % 1 PACK (2 CLOTHS) TOP SCH ×2 (02:24→19:56)
[2016-10-14] MEDS: INSULIN NovoLIN REGULAR SUPPLEMENTAL SCALE SQ SCH ×4 (04:18→23:00)
[2016-10-14] MEDS: methylPREDNISolone SOD SUCC 125 MG/2 ML VIAL IV SCH ×3 (05:11→17:00)
[2016-10-14] MEDS: PIPERACIL-TAZO 4.5 GM PREMIX 100 ML IV SCH ×3 (05:11→17:01)
[2016-10-14] MEDS: LANSOPRAZOLE SOLUTAB 30 MG TAB NG SCH ×2 (09:00→21:13)
[2016-10-14] MEDS: SENNOSIDES SYRUP 8.8 MG/5 ML CUP PO SCH (09:14)
[2016-10-14] MEDS: FLUoxetine HCL 10 MG CAP PO SCH (09:14)
[2016-10-14] MEDS: METOPROLOL TARTRATE 50 MG TAB PO SCH ×2 (09:14→21:13)
[2016-10-14] MEDS: SODIUM CHLORIDE 0.9% FLUSH 10 ML FLUSH IV FLUSH SCH ×2 (09:14→19:54)
[2016-10-14] MEDS: COLLAGENASE OINT 30 GM TUBE TOP SCH (09:15)
--- NOTE | 2016-10-14 10:12 | HHI.PR ---
Review/Management Daily Summary 08/18 discussed with RN, stable overall data seen, lp abnormal csf meningites/encephalitis? 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 will also defer to Dr. Jessica next week d/w medical yesterday i.d. 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 otherwise Subjective Subjective Comments No acute events reported Spoke with RN yest and this am Steroid pulse started Active Medications Current Medications Medications (Trade) Dose Ordered Sig/Beau Route Start Time Stop Time Status Last Admin (Tylenol) 650 mg Q4H PRN PO 08/13/16 14:00 10/10/16 20:56 (Tylenol Supp) 650 mg Q6H PRN RECTAL 08/15/16 16:30 09/06/16 20:06 (PROzac) 10 mg DAILY PO 08/24/16 09:00 10/14/16 09:14 (Lovenox Inj) 40 mg Q24H SQ 09/02/16 09:00 Hold 09/25/16 08:30 (Zofran Liq) 4 mg Q6H PRN PEG 09/11/16 16:00 (Miralax) 17 gm DAILY PRN PEG 09/11/16 16:00 (Santyl Oint) 1 applic DAILY TOP 09/14/16 16:00 10/14/16 09:15 (D50w (Vial) Inj) 25 ml UNSCH PRN IV PUSH 09/25/16 16:15 (Glucagon Inj) 1 mg UNSCH PRN OTHER 09/25/16 16:15 (NovoLIN R SUPPLEMENTAL SCALE) 1 Q6H SQ 09/25/16 17:00 10/14/16 04:18 (Pill Splitter) 1 ea UNSCH PRN OTHER 09/26/16 09:00 (Prevacid Odt) 30 mg BID NG 09/30/16 10:15 10/14/16 09:00 ([place]wood 5-325 Mg) 1 tab Q4H PRN PEG 10/02/16 13:00 10/13/16 21:26 (Motrin Liq) 200 mg Q6H PRN PEG 10/07/16 01:00 10/12/16 20:20 (NS Flush) 2 ml UNSCH PRN IV FLUSH 10/09/16 10:00 10/13/16 12:27 (NS Flush) 2 ml BID IV FLUSH 10/09/16 21:00 10/14/16 09:14 Miscellaneous Information 1 Q361D XX 10/09/16 10:00 (Chlorhexidine 2% Cloth) 3 pack Taper DAILY@04 TOP 10/10/16 04:00 10/06/17 03:59 10/14/16 02:24 (Chlorhexidine 2% Cloth) 3 pack UNSCH PRN TOP 10/09/16 10:00 Sennosides 8.8 mg 8.8 mg DAILY PO 10/10/16 09:00 10/14/16 09:14 (Zosyn 4.5 Gm Premix) 100 ml @ 200 mls/hr Q6H IV 10/09/16 12:00 10/14/16 05:11 Metoprolol Tartrate 50 mg 50 mg Q12HR PO 10/10/16 21:00 10/14/16 09:14 Potassium Chloride 100 ml @ 50 mls/hr Q2H PRN IV 10/10/16 10:45 (KCl 20 Meq Premix Inj) 100 ml @ 50 mls/hr Q2H PRN IV 10/10/16 10:45 Potassium Bicarb/ Potassium Chloride 50 meq 50 meq UNSCH PRN PO 10/10/16 10:45 10/12/16 23:05 Potassium Chloride 100 ml @ 25 mls/hr UNSCH PRN IV 10/10/16 10:45 10/11/16 08:42 Potassium Chloride 100 ml @ 50 mls/hr Q2H PRN IV 10/10/16 10:45 (Magnesium Sulfate Inj/NS Inj) 100 ml @ 50 mls/hr UNSCH PRN IV 10/10/16 10:45 Magnesium Oxide 800 mg 800 mg UNSCH PRN PO 10/10/16 10:45 (Magnesium Sulfate Inj/NS Inj) 100 ml @ 50 mls/hr UNSCH PRN IV 10/10/16 10:45 Potassium Phosphate 2000 mg 2,000 mg Q4H PRN PO 10/10/16 10:45 (Sodium Phosphate Inj/NS 250 ml Inj) 250 ml @ 42 mls/hr UNSCH PRN IV 10/10/16 10:45 Potassium Phosphate 2000 mg 2,000 mg UNSCH PRN PO/TUBE 10/10/16 10:45 (Potassium Phosphate Inj/NS 250 ml Inj) 260 ml @ 42 mls/hr UNSCH PRN IV 10/10/16 10:45 (SoluMEDROL INJ) 250 mg Q6H IV 10/13/16 12:00 10/16/16 06:01 10/14/16 05:11 Allergies Allergies Coded Allergies *MDRO Multi-Drug Resistant Organism (Verified Adverse Reaction, Unknown, ) Uncoded Allergies ADHESIVE TAPE ( Allergy, Severe, 09/21/16) Review of Systems All other ROS: ROS reviewed as documented in chart Exam I&O / VS 10/13/16 10/13/16 10/14/16 15:00 23:00 07:00 Intake Total 845 ml 412 ml 509 ml Output Total 1075 ml 600 ml 600 ml Balance -230 ml -188 ml -91 ml IV Total 159 ml 99 ml Tube Feeding 586 ml 412 ml 410 ml Tube Irrigant 100 ml Output Urine Total 875 ml 500 ml 550 ml Stool Total 200 ml 100 ml 50 ml Vital Signs Date Time Temp Pulse Resp B/P Pulse Ox O2 Delivery O2 Flow Rate FiO2 10/14/16 08:00 114 10/14/16 08:00 98.5 114 16 119/78 97 10/14/16 08:00 97 Nasal Cannula 2.00 10/14/16 06:00 109 10/14/16 04:00 98.1 108 18 119/78 98 10/14/16 04:00 94 Nasal Cannula 2.00 10/14/16 04:00 108 10/14/16 02:00 109 10/14/16 00:00 101 10/14/16 00:00 98.0 101 20 113/84 98 10/14/16 00:00 94 Nasal Cannula 2.00 10/13/16 22:00 95 10/13/16 20:03 94 Nasal Cannula 2.00 10/13/16 20:00 98.6 109 20 108/65 99 10/13/16 20:00 109 10/13/16 20:00 94 Nasal Cannula 2.00 10/13/16 18:00 107 10/13/16 16:00 103 10/13/16 16:00 98 Nasal Cannula 2.00 10/13/16 16:00 97.7 103 21 129/89 98 10/13/16 14:00 97 10/13/16 12:00 97.9 100 18 112/79 100 10/13/16 12:00 100 Nasal Cannula 2.00 10/13/16 12:00 100 Objective Micro and Labs Date/Time Procedure Status Source Growth 10/11/16 13:23 Gram Stain - Final Complete Fluid Synovial Fluid 10/11/16 13:23 Body Fluid Culture - Final Complete Fluid Synovial Fluid NO GROWTH IN 72 HRS.--AEROBICALLY OR ... 10/11/16 13:23 Fungal Smear - Final Resulted Fluid Synovial Fluid NO FUNGAL ELEMENTS SEEN. 10/11/16 13:23 Fungal Culture Resulted Fluid Synovial Fluid Pending 10/11/16 13:23 Cancelled Fluid Synovial Fluid 10/09/16 21:45 Aerobic Blood Culture - Preliminary Resulted Blood Peripheral NO GROWTH IN 4 DAYS 10/09/16 21:45 Anaerobic Blood Culture - Preliminary Resulted Blood Peripheral NO GROWTH IN 4 DAYS Wolfgang Jessica MD Oct 14, 2016 10:12
--- NOTE | 2016-10-14 16:51 | HHI.PR ---
Subjective Remarks nods and moved his head whenasked if he is in pain- moved head to indicated no- sideways ff and grippled with his left hand wheh asked to do so tolerating tube feedings Objective Vitals Vital Signs Date Time Temp Pulse Resp B/P Pulse Ox O2 Delivery O2 Flow Rate FiO2 10/14/16 16:00 101 10/14/16 16:00 98.7 101 14 121/79 97 10/14/16 16:00 97 Room Air 10/14/16 14:00 97 10/14/16 12:00 98.6 96 16 104/81 100 10/14/16 12:00 100 Nasal Cannula 2.00 10/14/16 12:00 96 10/14/16 10:00 98 10/14/16 08:00 114 10/14/16 08:00 98.5 114 16 119/78 97 10/14/16 08:00 97 Nasal Cannula 2.00 10/14/16 06:00 109 10/14/16 04:00 98.1 108 18 119/78 98 10/14/16 04:00 94 Nasal Cannula 2.00 10/14/16 04:00 108 10/14/16 02:00 109 10/14/16 00:00 101 10/14/16 00:00 98.0 101 20 113/84 98 10/14/16 00:00 94 Nasal Cannula 2.00 10/13/16 22:00 95 10/13/16 20:03 94 Nasal Cannula 2.00 10/13/16 20:00 98.6 109 20 108/65 99 10/13/16 20:00 109 10/13/16 20:00 94 Nasal Cannula 2.00 10/13/16 18:00 107 I/O 10/13/16 10/13/16 10/13/16 10/14/16 10/14/16 10/14/16 07:00 15:00 23:00 07:00 15:00 23:00 Intake Total 1325 ml 845 ml 412 ml 509 ml 903 ml Output Total 650 ml 1075 ml 600 ml 600 ml 600 ml Balance 675 ml -230 ml -188 ml -91 ml 303 ml IV Total 698 ml 159 ml 99 ml 91 ml Tube Feeding 527 ml 586 ml 412 ml 410 ml 712 ml Tube Irrigant 100 ml 100 ml Other 100 ml Output Urine Total 550 ml 875 ml 500 ml 550 ml 550 ml Stool Total 100 ml 200 ml 100 ml 50 ml 50 ml Result Diagram: 10/11/16 0426 10/11/16 0426 Imaging Last Impressions Chest X-Ray 10/11/16 0000 Signed Impressions: Service Date/Time: Tuesday, October 11, 2016 21:23 - CONCLUSION: 1. Bilateral hazy airspace disease. Differential diagnosis includes edema and aspiration. Sumit Bourgeois MD Hip Aspiration/Injection 10/08/16 0000 Signed Impressions: Service Date/Time: Tuesday, October 11, 2016 13:41 - CONCLUSION: Uncomplicated aspiration as above. Minimal fluid on the right. No identifiable fluid on the left Clayton Max MD Lower Extremity Ultrasound 10/06/16 0000 Signed Impressions: Service Date/Time: September 17:29 - CONCLUSION: Normal examination. Josafat Meyer MD CT Angiography 10/06/16 0000 Signed Impressions: Service Date/Time: September 20:31 - CONCLUSION: Minimal right upper lobe infiltrate and basilar atelectasis. No evidence of pulmonary embolism.. Josafat Meyer MD Abdomen/Pelvis CT 10/06/16 0000 Signed Impressions: Service Date/Time: September 20:31 - CONCLUSION: No evidence of pelvic abscess. Josafat Meyer MD Upper Extremity Ultrasound 09/28/16 0000 Signed Impressions: Service Date/Time: Wednesday, September 28, 2016 19:15 - CONCLUSION: 1. Occlusive superficial thrombosis in the left cephalic vein near the antecubital fossa. No deep venous thrombosis. Sumit Bourgeois MD Renal Ultrasound 08/28/16 0000 Signed Impressions: Service Date/Time: Sunday, August 28, 2016 20:03 - CONCLUSION: Mild increased echotexture of both kidneys. Baldev Vu MD Lumbar Puncture Fluoroscopy 08/17/16 0000 Signed Impressions: Service Date/Time: Wednesday, August 17, 2016 12:26 - CONCLUSION: Uncomplicated fluoroscopically guided lumbar puncture. Vishal Beckford Jr., MD Brain MRI 08/17/16 0000 Signed Impressions: Service Date/Time: Wednesday, August 17, 2016 13:28 - CONCLUSION: Remote long-standing areas of abnormality in the brainstem and middle cerebellar peduncle consistent with remote infarcts or contusion. No acute intracranial abnormality. Chacho Bright MD Abdomen X-Ray 08/17/16 0000 Signed Impressions: Service Date/Time: Wednesday, August 17, 2016 13:02 - CONCLUSION: No evidence of obstruction. No MRI incompatible foreign body is identified. Chacho Bright MD Head CT 08/16/16 0000 Signed Impressions: Service Date/Time: Tuesday, August 16, 2016 09:55 - CONCLUSION: Chronic ischemic changes left frontal lobe possibly from evidence of previous ventriculostomy placement, unchanged. No acute intracranial abnormality. Gen Potter MD Modified Barium Swallow 08/15/16 0000 Signed Impressions: Service Date/Time: Monday, August 15, 2016 00:00 - CONCLUSION: See report above and speech pathology report Chacho Bright MD Objective Remarks eyes open - responded by moving his head- horizontally and gripped with left hand anicteric neck supple lungs no rales or wheezes regular rhythm, tachycardic abdomen- PEG in place condom catheter dignishield extremities- flexion contractures- gripped with his left hand when held and when asked to 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 (4) GI bleed ICD Code: K92.2 Status: Resolved (5) HCAP (healthcare-associated pneumonia) ICD Code: J18.9 Status: Resolved (6) UTI (urinary tract infection) ICD Code: N39.0 Status: Resolved (7) Leucocytosis ICD Code: D72.829 Status: Acute (8) Fever ICD Code: R50.9 Status: Acute (9) Effusion of hip joint ICD Code: M25.459 Status: Acute Assessment and Plan NEUROLOGY 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 Encephalopathy H/O meningitis Left frontal CVA Monitor neuro status and avoid sedatives -Neurology ff- started on pulse steroid therapy- 10/13- till 10/16 - seem to show some improvement EEG 10/09- mild- mod encephalopathy -On Prozac 10mg daily PULMONOLOGY Continue O2 maintain O2 sats > 92%, Bronchodilators scheduled every 6 hours, every 2 hours when necessary -10/09 Chest x-ray-no acute disease -09/26-CTA-no PE -- needs frequent suctioning CARDIOLOGY Sinus tachycardia ILopressor 50 mg BID for rate control-monitor HR and BP keep MAP>65mmHg --response to sepsis GASTROENTEROLOGY GI bleed-resolved Continue with Protonix 40 -s/p EGD 09/25 no signs of active bleeding -S/p transfusion 3units PRBC overnight on 09/26 monitor H/H. -09/26 CT abdomen/pelvis showed no acute findings -Colonoscopy done on 09/27 with no active bleeding. S/P PEG placement RENAL Monitor renal function, I/O's, electrolyte replacement protocol. Hypokalemia - oral replacement protocol INFECTION DISEASE Sepsis Persistent Leukocytosis Right upper lung pneumonia-resolved Sacral decubitus-colonized VRE, pseudomonas S/P hip aspiration by IR 10/11 Continue with abx per ID (vancomycin and Zosyn) Pancultured 10/09 CT abdomen/pelvis 09/26: No acute findings Pertinent cultures 09/25 C-diff PCR negative 09/10/16 Wound culture from sacral decubitus: Pseudo-fluoresceins/[place], enterococcus faecalis, enterococcus faecium VRE 08/26/16 urine culture with Daphney parapsilosis ID following Dr. Reyes Blood culture-staph epi(possible contaminant) on 10/05 FF fluid studies from hip aspiration Ortho is following ENDOCRINOLOGY SSI for glycemic control HEMATOLOGY Monitor CBC PROPHYLAXIS Prevacid 30mg BID for GI protection SCD for DVT prophylaxis, -Doppler US LE 10/06: No DVT -Doppler US UE 09/28: Occlusive superficial thrombosis in the left cephalic vein near the antecubital fossa. No DVT LINES Peripheral IVs transfer to med/surg - neuro floor- 5 N Problem Qualifiers (1) GI bleed: Qualified Code: K92.2 - Gastrointestinal hemorrhage, unspecified gastrointestinal hemorrhage type (2) UTI (urinary tract infection): Qualified Code: N30.00 - Acute cystitis without hematuria (3) Effusion of hip joint: Qualified Code: M25.459 - Effusion of hip joint, unspecified laterality Janine Gudino MD Oct 14, 2016 16:51
[2016-10-15] VITALS: BP 121/79; PULSE 100; PULSE 102; RESP 13; TEMP 98.2; O2SAT 98
[2016-10-15] MEDS: PIPERACIL-TAZO 4.5 GM PREMIX 100 ML IV SCH ×4 (00:41→17:35)
[2016-10-15] MEDS: methylPREDNISolone SOD SUCC 125 MG/2 ML VIAL IV SCH ×4 (00:41→17:35)
[2016-10-15 04:00] VITALS: BP 104/85; PULSE 102; PULSE 104; RESP 20; TEMP 98; O2SAT 98
[2016-10-15] MEDS: INSULIN NovoLIN REGULAR SUPPLEMENTAL SCALE SQ SCH ×4 (04:58→23:00)
[2016-10-15] MEDS: SODIUM CHLORIDE 0.9% FLUSH 10 ML FLUSH IV FLUSH SCH ×2 (09:58→21:00)
[2016-10-15] MEDS: METOPROLOL TARTRATE 50 MG TAB PO SCH ×2 (09:58→21:00)
[2016-10-15] MEDS: SENNOSIDES SYRUP 8.8 MG/5 ML CUP PO SCH (09:58)
[2016-10-15] MEDS: FLUoxetine HCL 10 MG CAP PO SCH (09:58)
[2016-10-15] MEDS: LANSOPRAZOLE SOLUTAB 30 MG TAB NG SCH ×2 (09:58→21:00)
[2016-10-15] MEDS: COLLAGENASE OINT 30 GM TUBE TOP SCH (09:59)
--- NOTE | 2016-10-15 11:24 | HHI.PR ---
Subjective Remarks Closed eyes, no acute issue, afebrile Plan for another dose of steroid per neurologist Objective Vitals Vital Signs Date Time Temp Pulse Resp B/P Pulse Ox O2 Delivery O2 Flow Rate FiO2 10/15/16 04:00 102 10/15/16 04:00 98.0 104 20 104/85 98 10/15/16 04:00 98 Nasal Cannula 2.00 10/15/16 00:00 98 Nasal Cannula 2.00 10/15/16 00:00 98.2 100 13 121/79 98 10/15/16 00:00 102 10/14/16 20:46 100 10/14/16 20:00 98.5 102 20 119/81 99 10/14/16 20:00 94 Nasal Cannula 2.00 10/14/16 20:00 102 10/14/16 18:00 100 10/14/16 16:00 101 10/14/16 16:00 98.7 101 14 121/79 97 10/14/16 16:00 97 Room Air 10/14/16 14:00 97 10/14/16 12:00 98.6 96 16 104/81 100 10/14/16 12:00 100 Nasal Cannula 2.00 10/14/16 12:00 96 I/O 10/14/16 10/14/16 10/14/16 10/15/16 10/15/16 10/15/16 07:00 15:00 23:00 07:00 15:00 23:00 Intake Total 509 ml 903 ml 519 ml 697 ml Output Total 600 ml 600 ml 650 ml 550 ml Balance -91 ml 303 ml -131 ml 147 ml IV Total 99 ml 91 ml 100 ml 99 ml Tube Feeding 410 ml 712 ml 419 ml 598 ml Tube Irrigant 100 ml Output Urine Total 550 ml 550 ml 500 ml 500 ml Stool Total 50 ml 50 ml 150 ml 50 ml Result Diagram: 10/11/16 04210/11/16425 Objective Remarks GENERAL: This frail chronically ill 46 years old male CARDIOVASCULAR: Regular rate and rhythm without murmurs, gallops, or rubs. RESPIRATORY: Fair entry. No wheezes, rales, or rhonchi. GASTROINTESTINAL: Abdomen soft, non-tender, nondistended. 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 (4) GI bleed ICD Code: K92.2 Status: Resolved (5) HCAP (healthcare-associated pneumonia) ICD Code: J18.9 Status: Resolved (6) UTI (urinary tract infection) ICD Code: N39.0 Status: Resolved (7) Leucocytosis ICD Code: D72.829 Status: Acute (8) Fever ICD Code: R50.9 Status: Acute (9) Effusion of hip joint ICD Code: M25.459 Status: Acute Assessment and Plan 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 -09/26 CT abdomen/pelvis showed no acute findings -Colonoscopy done on 09/27 with no active bleeding. S/P PEG placement Sepsis Persistent Leukocytosis Right upper lung pneumonia-resolved Sacral decubitus-colonized VRE, pseudomonas S/P hip aspiration by IR 10/11 s/p abx per ID (vancomycin and Zosyn) Pancultured 10/09 CT abdomen/pelvis 09/26: No acute findings Pertinent cultures 09/25 C-diff PCR negative 09/10/16 Wound culture from sacral decubitus: Pseudo-fluoresceins/[place], enterococcus faecalis, enterococcus faecium VRE 08/26/16 urine culture with Daphney parapsilosis ID following Dr. Reyes Blood culture-staph epi(possible contaminant) on 10/05 FF fluid studies from hip aspiration Ortho is following PROPHYLAXIS Prevacid 30mg BID for GI protection SCD for DVT prophylaxis, -Doppler US LE 10/06: No DVT -Doppler US UE 09/28: Occlusive superficial thrombosis in the left cephalic vein near the antecubital fossa. No DVT Problem Qualifiers (1) GI bleed: Qualified Code: K92.2 - Gastrointestinal hemorrhage, unspecified gastrointestinal hemorrhage type (2) UTI (urinary tract infection): Qualified Code: N30.00 - Acute cystitis without hematuria (3) Effusion of hip joint: Qualified Code: M25.459 - Effusion of hip joint, unspecified laterality Whit Aquino MD Oct 15, 2016 11:24
[2016-10-15 13:00] VITALS: BP 120/83; PULSE 68; RESP 19; TEMP 97.2; O2SAT 97
[2016-10-15 16:00] VITALS: BP 126/82; PULSE 70; RESP 22; TEMP 97; O2SAT 96
[2016-10-15 20:00] VITALS: BP 120/80; PULSE 105; RESP 20; TEMP 98; O2SAT 98
[2016-10-15 22:26] VITALS: O2SAT 96
[2016-10-16] VITALS (8 sets, daily range): BP systolic 116–138; BP diastolic 71–91; PULSE 86–101; RESP 18–24; TEMP 96.4–98; O2SAT 96–99
[2016-10-16] MEDS: methylPREDNISolone SOD SUCC 125 MG/2 ML VIAL IV SCH ×2 (00:20→05:44)
[2016-10-16] MEDS: PIPERACIL-TAZO 4.5 GM PREMIX 100 ML IV SCH ×5 (00:20→23:20)
[2016-10-16] MEDS: CHLORHEXIDINE GLUCONATE 2 % 1 PACK (2 CLOTHS) TOP SCH (04:00)
[2016-10-16] MEDS: INSULIN NovoLIN REGULAR SUPPLEMENTAL SCALE SQ SCH ×4 (04:30→23:00)
[2016-10-16] MEDS: LANSOPRAZOLE SOLUTAB 30 MG TAB NG SCH ×2 (09:19→23:20)
[2016-10-16] MEDS: METOPROLOL TARTRATE 50 MG TAB PO SCH ×2 (09:19→23:19)
[2016-10-16] MEDS: SENNOSIDES SYRUP 8.8 MG/5 ML CUP PO SCH (09:19)
[2016-10-16] MEDS: FLUoxetine HCL 10 MG CAP PO SCH (09:19)
[2016-10-16] MEDS: ACETAMINOPHEN/HYDROcodone 325 MG/5 MG TAB PEG PRN (09:20)
[2016-10-16] MEDS: COLLAGENASE OINT 30 GM TUBE TOP SCH (09:21)
[2016-10-16] MEDS: SODIUM CHLORIDE 0.9% FLUSH 10 ML FLUSH IV FLUSH SCH ×2 (09:21→23:21)
--- NOTE | 2016-10-16 12:48 | HHI.PR ---
Subjective Remarks In bed, nonverbal, closed eyes, no significant neurologic improvement so far Objective Vitals Vital Signs Date Time Temp Pulse Resp B/P Pulse Ox O2 Delivery O2 Flow Rate FiO2 10/16/16 11:05 18 10/16/16 09:31 99 Nasal Cannula 2.00 10/16/16 08:00 97.4 101 22 119/82 99 10/16/16 04:00 97.2 86 18 117/78 99 10/16/16 00:00 97.0 100 20 117/72 96 10/15/16 22:26 96 Nasal Cannula 2.00 10/15/16 22:00 Room Air 10/15/16 20:00 98.0 105 20 120/80 98 10/15/16 16:00 97.0 70 22 126/82 96 10/15/16 13:00 97.2 68 19 120/83 97 I/O 10/15/16 10/15/16 10/15/16 10/16/16 10/16/16 10/16/16 07:00 15:00 23:00 07:00 15:00 23:00 Intake Total 697 ml Output Total 550 ml 650 ml Balance 147 ml -650 ml IV Total 99 ml Tube Feeding 598 ml Output Urine Total 500 ml 650 ml Stool Total 50 ml # Voids 3 Objective Remarks GENERAL: This frail chronically ill 46 years old male CARDIOVASCULAR: Regular rate and rhythm without murmurs, gallops, or rubs. RESPIRATORY: Fair entry. No wheezes, rales, or rhonchi. GASTROINTESTINAL: Abdomen soft, non-tender, nondistended. 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 (4) GI bleed ICD Code: K92.2 Status: Resolved (5) HCAP (healthcare-associated pneumonia) ICD Code: J18.9 Status: Resolved (6) UTI (urinary tract infection) ICD Code: N39.0 Status: Resolved (7) Leucocytosis ICD Code: D72.829 Status: Acute (8) Fever ICD Code: R50.9 Status: Acute (9) Effusion of hip joint ICD Code: M25.459 Status: Acute Assessment and Plan 10/16: Third day of pulse steroid dose recommended I neurology to be followed by tapering prednisone and possible azathioprine will defer to neurology A/P: 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 -09/26 CT abdomen/pelvis showed no acute findings -Colonoscopy done on 09/27 with no active bleeding. S/P PEG placement Sepsis Persistent Leukocytosis Right upper lung pneumonia-resolved Sacral decubitus-colonized VRE, pseudomonas S/P hip aspiration by IR 10/11 s/p abx per ID (vancomycin and Zosyn) Pancultured 10/09 CT abdomen/pelvis 09/26: No acute findings Pertinent cultures 09/25 C-diff PCR negative 09/10/16 Wound culture from sacral decubitus: Pseudo-fluoresceins/[place], enterococcus faecalis, enterococcus faecium VRE 08/26/16 urine culture with Daphney parapsilosis ID following Dr. Reyes Blood culture-staph epi(possible contaminant) on 10/05 FF fluid studies from hip aspiration Ortho is following PROPHYLAXIS Prevacid 30mg BID for GI protection SCD for DVT prophylaxis, -Doppler US LE 10/06: No DVT -Doppler US UE 09/28: Occlusive superficial thrombosis in the left cephalic vein near the antecubital fossa. No DVT Problem Qualifiers (1) GI bleed: Qualified Code: K92.2 - Gastrointestinal hemorrhage, unspecified gastrointestinal hemorrhage type (2) UTI (urinary tract infection): Qualified Code: N30.00 - Acute cystitis without hematuria (3) Effusion of hip joint: Qualified Code: M25.459 - Effusion of hip joint, unspecified laterality Whit Aquino MD Oct 16, 2016 12:48
--- NOTE | 2016-10-16 13:27 | HHI.PR ---
Review/Management Daily Summary 08/18 discussed with RN, stable overall data seen, lp abnormal csf meningites/encephalitis? 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 will also defer to Dr. Jessica next week d/w medical yesterday i.d. 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 otherwise 10/16 little more responsive with pulse steroids if medical team agrees we could do a taper steroids starting tomorrow , for 2 weks, start 40 mg prednisone or comprobable iv decadron/solumedrol also start azathioprine 50 mg bid po/peg, monitor lft's and cbc monthly Subjective Subjective Comments No acute events reported Active Medications Current Medications Medications (Trade) Dose Ordered Sig/Beau Route Start Time Stop Time Status Last Admin (Tylenol) 650 mg Q4H PRN PO 08/13/16 14:00 10/10/16 20:56 (Tylenol Supp) 650 mg Q6H PRN RECTAL 08/15/16 16:30 09/06/16 20:06 (PROzac) 10 mg DAILY PO 08/24/16 09:00 10/16/16 09:19 (Lovenox Inj) 40 mg Q24H SQ 09/02/16 09:00 Hold 09/25/16 08:30 (Zofran Liq) 4 mg Q6H PRN PEG 09/11/16 16:00 (Miralax) 17 gm DAILY PRN PEG 09/11/16 16:00 (Santyl Oint) 1 applic DAILY TOP 09/14/16 16:00 10/16/16 09:21 (D50w (Vial) Inj) 25 ml UNSCH PRN IV PUSH 09/25/16 16:15 (Glucagon Inj) 1 mg UNSCH PRN OTHER 09/25/16 16:15 (NovoLIN R SUPPLEMENTAL SCALE) 1 Q6H SQ 09/25/16 17:00 10/16/16 04:30 (Pill Splitter) 1 ea UNSCH PRN OTHER 09/26/16 09:00 (Prevacid Odt) 30 mg BID NG 09/30/16 10:15 10/16/16 09:19 ([place] 5-325 Mg) 1 tab Q4H PRN PEG 10/02/16 13:00 10/16/16 09:20 (Motrin Liq) 200 mg Q6H PRN PEG 10/07/16 01:00 10/12/16 20:20 (NS Flush) 2 ml UNSCH PRN IV FLUSH 10/09/16 10:00 10/13/16 12:27 (NS Flush) 2 ml BID IV FLUSH 10/09/16 21:00 10/16/16 09:21 Miscellaneous Information 1 Q361D XX 10/09/16 10:00 (Chlorhexidine 2% Cloth) Taper DAILY@04 TOP 10/10/16 04:00 10/06/17 03:59 10/16/16 04:00 (Chlorhexidine 2% Cloth) 3 pack UNSCH PRN TOP 10/09/16 10:00 Sennosides 8.8 mg 8.8 mg DAILY PO 10/10/16 09:00 10/16/16 09:19 (Zosyn 4.5 Gm Premix) 100 ml @ 200 mls/hr Q6H IV 10/09/16 12:00 10/16/16 13:18 (Lopressor) 50 mg Q12HR PO 10/10/16 21:00 10/16/16 09:19 Allergies Allergies Coded Allergies *MDRO Multi-Drug Resistant Organism (Verified Adverse Reaction, Unknown, ) Uncoded Allergies ADHESIVE TAPE ( Allergy, Severe, 09/21/16) Review of Systems All other ROS: ROS reviewed as documented in chart Exam I&O / VS 10/15/16 10/15/16 10/16/16 15:00 23:00 07:00 Output Total 650 ml Balance -650 ml Output Urine Total 650 ml # Voids 3 Vital Signs Date Time Temp Pulse Resp B/P Pulse Ox O2 Delivery O2 Flow Rate FiO2 10/16/16 12:00 97.6 98 22 138/86 98 10/16/16 11:05 18 10/16/16 09:31 99 Nasal Cannula 2.00 10/16/16 08:00 97.4 101 22 119/82 99 10/16/16 04:00 97.2 86 18 117/78 99 10/16/16 00:00 97.0 100 20 117/72 96 10/15/16 22:26 96 Nasal Cannula 2.00 10/15/16 22:00 Room Air 10/15/16 20:00 98.0 105 20 120/80 98 10/15/16 16:00 97.0 70 22 126/82 96 Wolfgang Jessica MD Oct 16, 2016 13:27
[2016-10-16 16:42] LABS: BICARBONATE 31.7 MEQ/L (21.0-32.0); CALCIUM 9.7 MG/DL (8.5-10.1); CREATININE 0.82 MG/DL (0.60-1.30)
--- NOTE | 2016-10-17 00:47 | RADRPT ---
EXAM DATE/TIME: 10/17/2016 00:09 [facility] COMPARISON: CHEST SINGLE AP, October 11, 2016, 21:23. INDICATIONS : Short of breath. MEDICAL HISTORY : Stroke. Cardiovascular disease. SURGICAL HISTORY : None. ENCOUNTER: Subsequent ACUITY: 3 weeks PAIN SCORE: Non-responsive. LOCATION: Bilateral chest FINDINGS: A single view of the chest demonstrates the lungs to be symmetrically aerated without evidence of mas s, infiltrate or effusion. The previously noted infiltrates have resolved. The cardiomediastinal con tours are unremarkable. Osseous structures are intact. CONCLUSION: No acute pulmonary infiltrates. Kel Gay MD on October 17, 2016 at 0:45 Board Certified Radiologist. This report was verified electronically.
[2016-10-17] MEDS: CHLORHEXIDINE GLUCONATE 2 % 1 PACK (2 CLOTHS) TOP SCH (04:00)
[2016-10-17] MEDS: INSULIN NovoLIN REGULAR SUPPLEMENTAL SCALE SQ SCH ×3 (04:49→17:00)
[2016-10-17] MEDS: PIPERACIL-TAZO 4.5 GM PREMIX 100 ML IV SCH ×3 (04:50→17:02)
[2016-10-17 06:00] VITALS: BP 110/75; PULSE 77; RESP 26; TEMP 97.6; O2SAT 98
[2016-10-17 08:45] VITALS: BP 107/72; PULSE 87; RESP 18; TEMP 96.4; O2SAT 98
[2016-10-17] MEDS: FLUoxetine HCL 10 MG CAP PO SCH (10:28)
[2016-10-17] MEDS: METOPROLOL TARTRATE 50 MG TAB PO SCH (10:28)
[2016-10-17] MEDS: SENNOSIDES SYRUP 8.8 MG/5 ML CUP PO SCH (10:28)
[2016-10-17] MEDS: LANSOPRAZOLE SOLUTAB 30 MG TAB NG SCH (10:28)
[2016-10-17] MEDS: SODIUM CHLORIDE 0.9% FLUSH 10 ML FLUSH IV FLUSH SCH ×2 (10:29→21:00)
[2016-10-17] MEDS: COLLAGENASE OINT 30 GM TUBE TOP SCH (10:30)
[2016-10-17 11:18] LABS: BICARBONATE 31.3 MEQ/L (21.0-32.0); CALCIUM 9.9 MG/DL (8.5-10.1); CREATININE 0.84 MG/DL (0.60-1.30)
--- NOTE | 2016-10-17 11:33 | HHI.PR ---
Review/Management Daily Summary 08/18 discussed with RN, stable overall data seen, lp abnormal csf meningites/encephalitis? 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 will also defer to Dr. Jessica next week d/w medical yesterday i.d. 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 otherwise 10/16 little more responsive with pulse steroids if medical team agrees we could do a taper steroids starting tomorrow , for 2 weks, start 40 mg prednisone or comprobable iv decadron/solumedrol also start azathioprine 50 mg bid po/peg, monitor lft's and cbc monthly 10/17 eyes open but not following any commands, some upper airway congestion plans as before prognosis bleak, doubt of much neuro improvement Subjective Subjective Comments No overt acute events reported Active Medications Current Medications Medications (Trade) Dose Ordered Sig/Beau Route Start Time Stop Time Status Last Admin (Tylenol) 650 mg Q4H PRN PO 08/13/16 14:00 10/10/16 20:56 (Tylenol Supp) 650 mg Q6H PRN RECTAL 08/15/16 16:30 09/06/16 20:06 (PROzac) 10 mg DAILY PO 08/24/16 09:00 10/17/16 10:28 (Lovenox Inj) 40 mg Q24H SQ 09/02/16 09:00 Hold 09/25/16 08:30 (Zofran Liq) 4 mg Q6H PRN PEG 09/11/16 16:00 (Miralax) 17 gm DAILY PRN PEG 09/11/16 16:00 (Santyl Oint) 1 applic DAILY TOP 09/14/16 16:00 10/17/16 10:30 (D50w (Vial) Inj) 25 ml UNSCH PRN IV PUSH 09/25/16 16:15 (Glucagon Inj) 1 mg UNSCH PRN OTHER 09/25/16 16:15 (NovoLIN R SUPPLEMENTAL SCALE) 1 Q6H SQ 09/25/16 17:00 10/16/16 04:30 (Pill Splitter) 1 ea UNSCH PRN OTHER 09/26/16 09:00 (Prevacid Odt) 30 mg BID NG 09/30/16 10:15 10/17/16 10:28 ([place] 5-325 Mg) 1 tab Q4H PRN PEG 10/02/16 13:00 10/16/16 09:20 (Motrin Liq) 200 mg Q6H PRN PEG 10/07/16 01:00 10/12/16 20:20 (NS Flush) 2 ml UNSCH PRN IV FLUSH 10/09/16 10:00 10/13/16 12:27 (NS Flush) 2 ml BID IV FLUSH 10/09/16 21:00 10/17/16 10:29 Miscellaneous Information 1 Q361D XX 10/09/16 10:00 (Chlorhexidine 2% Cloth) Taper DAILY@04 TOP 10/10/16 04:00 10/06/17 03:59 10/16/16 04:00 (Chlorhexidine 2% Cloth) 3 pack UNSCH PRN TOP 10/09/16 10:00 Sennosides 8.8 mg 8.8 mg DAILY PO 10/10/16 09:00 10/17/16 10:28 (Zosyn 4.5 Gm Premix) 100 ml @ 200 mls/hr Q6H IV 10/09/16 12:00 10/17/16 04:50 (Lopressor) 50 mg Q12HR PO 10/10/16 21:00 10/17/16 10:28 Allergies Allergies Coded Allergies *MDRO Multi-Drug Resistant Organism (Verified Adverse Reaction, Unknown, ) Uncoded Allergies ADHESIVE TAPE ( Allergy, Severe, 09/21/16) Review of Systems All other ROS: ROS reviewed as documented in chart Exam I&O / VS 10/16/16 10/16/16 10/17/16 15:00 23:00 07:00 Intake Total 0 ml Output Total 300 ml 550 ml 400 ml Balance -300 ml -550 ml -400 ml Intake Oral 0 ml Output Urine Total 300 ml 550 ml 400 ml Vital Signs Date Time Temp Pulse Resp B/P Pulse Ox O2 Delivery O2 Flow Rate FiO2 10/17/16 08:45 96.4 87 18 107/72 98 10/17/16 06:00 97.6 77 26 110/75 98 10/16/16 23:24 97.1 96 24 116/91 99 10/16/16 23:00 Room Air 10/16/16 20:00 96.4 95 24 121/83 99 10/16/16 16:00 98.0 96 22 135/71 97 10/16/16 12:00 97.6 98 22 138/86 98 Objective Micro and Labs Laboratory Tests Test 10/16/16 10/17/16 15:59 10:03 Sodium Level 151 151 Potassium Level 3.4 3.8 Chloride Level 110 113 Carbon Dioxide Level 31.7 31.3 Anion Gap 9 7 Blood Urea Nitrogen 34 29 Creatinine 0.82 0.84 Estimat Glomerular Filtration 124 120 Rate Random Glucose 101 106 Calcium Level 9.7 9.9 Wolfgang Jessica MD Oct 17, 2016 11:33
[2016-10-17 12:00] VITALS: BP 114/72; PULSE 79; RESP 18; TEMP 95.9; O2SAT 100
--- NOTE | 2016-10-17 13:38 | HHI.PR ---
Subjective Remarks Patient is having intermittent breathing pattern, discussed with the nurse will back off on narcotic Will increase free water due to increase sodium Afebrile, chest x-ray didn't show pulmonary congestion Objective Vitals Vital Signs Date Time Temp Pulse Resp B/P Pulse Ox O2 Delivery O2 Flow Rate FiO2 10/17/16 13:09 98 Room Air 10/17/16 12:00 95.9 79 18 114/72 100 10/17/16 08:45 96.4 87 18 107/72 98 10/17/16 06:00 97.6 77 26 110/75 98 10/16/16 23:24 97.1 96 24 116/91 99 10/16/16 23:00 Room Air 10/16/16 20:00 96.4 95 24 121/83 99 10/16/16 16:00 98.0 96 22 135/71 97 I/O 10/16/16 10/16/16 10/16/16 10/17/16 10/17/16 10/17/16 07:00 15:00 23:00 07:00 15:00 23:00 Intake Total 0 ml Output Total 300 ml 550 ml 400 ml Balance -300 ml -550 ml -400 ml Intake Oral 0 ml Output Urine Total 300 ml 550 ml 400 ml # Voids 3 Result Diagram: 10/17/16 1003 Objective Remarks GENERAL: This frail chronically ill 46 years old male CARDIOVASCULAR: Regular rate and rhythm without murmurs, gallops, or rubs. RESPIRATORY: Fair entry. No wheezes, rales, or rhonchi. GASTROINTESTINAL: Abdomen soft, non-tender, nondistended. 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 (4) GI bleed ICD Code: K92.2 Status: Resolved (5) HCAP (healthcare-associated pneumonia) ICD Code: J18.9 Status: Resolved (6) UTI (urinary tract infection) ICD Code: N39.0 Status: Resolved (7) Leucocytosis ICD Code: D72.829 Status: Acute (8) Fever ICD Code: R50.9 Status: Acute (9) Effusion of hip joint ICD Code: M25.459 Status: Acute Assessment and Plan 10/16: Third day of pulse steroid dose recommended I neurology to be followed by tapering prednisone and possible azathioprine will defer to neurology 10/17: Not significant improvement, appreciated neurology recommendation, starting tapering prednisone and Azathioprine, increase free water flush to 200- q6 hours, will give half-normal saline 500 cc for sodium 151 A/P: 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 -09/26 CT abdomen/pelvis showed no acute findings -Colonoscopy done on 09/27 with no active bleeding. S/P PEG placement Sepsis Persistent Leukocytosis Right upper lung pneumonia-resolved Sacral decubitus-colonized VRE, pseudomonas S/P hip aspiration by IR 10/11 s/p abx per ID (vancomycin and Zosyn) Pancultured 10/09 CT abdomen/pelvis 09/26: No acute findings Pertinent cultures 09/25 C-diff PCR negative 09/10/16 Wound culture from sacral decubitus: Pseudo-fluoresceins/[place], enterococcus faecalis, enterococcus faecium VRE 08/26/16 urine culture with Daphney parapsilosis ID following Dr. Reyes Blood culture-staph epi(possible contaminant) on 10/05 FF fluid studies from hip aspiration Ortho is following PROPHYLAXIS Prevacid 30mg BID for GI protection SCD for DVT prophylaxis, -Doppler US LE 10/06: No DVT -Doppler US UE 09/28: Occlusive superficial thrombosis in the left cephalic vein near the antecubital fossa. No DVT Problem Qualifiers (1) GI bleed: Qualified Code: K92.2 - Gastrointestinal hemorrhage, unspecified gastrointestinal hemorrhage type (2) UTI (urinary tract infection): Qualified Code: N30.00 - Acute cystitis without hematuria (3) Effusion of hip joint: Qualified Code: M25.459 - Effusion of hip joint, unspecified laterality Whit Aquino MD Oct 17, 2016 13:38
[2016-10-17 17:18] VITALS: BP 110/76; PULSE 80; RESP 20; TEMP 97.7; O2SAT 100
[2016-10-17 19:00] VITALS: TEMP 101.1
[2016-10-17] MEDS: predniSONE 20 MG TAB PO SCH (19:58)
[2016-10-17 20:33] VITALS: BP 121/82; PULSE 102; RESP 20; TEMP 98.1; O2SAT 99
[2016-10-18] VITALS (7 sets, daily range): BP systolic 105–122; BP diastolic 76–92; PULSE 100–117; RESP 18–20; TEMP 96.4–97.8; O2SAT 94–100
[2016-10-18] MEDS: PIPERACIL-TAZO 4.5 GM PREMIX 100 ML IV SCH ×2 (01:24→05:31)
[2016-10-18] MEDS: LANSOPRAZOLE SOLUTAB 30 MG TAB NG SCH ×3 (01:24→21:47)
[2016-10-18] MEDS: CHLORHEXIDINE GLUCONATE 0.12% OROPHARYNG SCH ×3 (01:25→17:28)
[2016-10-18] MEDS: METOPROLOL TARTRATE 50 MG TAB PO SCH ×3 (01:25→21:47)
[2016-10-18] MEDS: INSULIN NovoLIN REGULAR SUPPLEMENTAL SCALE SQ SCH ×5 (01:31→22:32)
[2016-10-18] MEDS: CHLORHEXIDINE GLUCONATE 2 % 1 PACK (2 CLOTHS) TOP SCH (01:38)
[2016-10-18] MEDS: azaTHIOprine 50 MG TAB PO SCH ×2 (05:30→17:16)
[2016-10-18 08:11] LABS: BICARBONATE 26.6 MEQ/L (21.0-32.0); CALCIUM 9.4 MG/DL (8.5-10.1); CREATININE 0.85 MG/DL (0.60-1.30)
[2016-10-18] MEDS: COLLAGENASE OINT 30 GM TUBE TOP SCH (09:00)
[2016-10-18] MEDS: SENNOSIDES SYRUP 8.8 MG/5 ML CUP PO SCH (09:51)
[2016-10-18] MEDS: FLUoxetine HCL 10 MG CAP PO SCH (09:52)
[2016-10-18] MEDS: predniSONE 20 MG TAB PO SCH (09:55)
[2016-10-18] MEDS: SODIUM CHLORIDE 0.9% FLUSH 10 ML FLUSH IV FLUSH SCH ×2 (10:02→21:47)
--- NOTE | 2016-10-18 14:43 | HHI.IDPN ---
Subjective Subjective Remarks is a 46 AAM with NeuroBehcet's disease, difficult placement and not safe discharge so continues to reside at [facility]. pt remains lethargic, not tracking like days before. Maurice changed. Liquid stools Cdiff negative. Gurgles: concerning for aspiration given change in mentation. Drooling clear resp secretions minimally responsive Antibiotics Zosyn IV Lines Line sites with no e.o infection Past Medical History reviewed Allergies: Coded Allergies: *MDRO Multi-Drug Resistant Organism (Verified Adverse Reaction, Unknown, ) VRE (buttock)-09/20/16 Uncoded Allergies: ADHESIVE TAPE (Allergy, Severe, 09/21/16) BLISTERS Objective . Vital Signs Date Time Temp Pulse Resp B/P Pulse Ox O2 Delivery O2 Flow Rate FiO2 10/18/16 13:03 96.4 100 20 110/76 97 10/18/16 07:30 97.2 107 20 109/82 100 10/18/16 05:18 97.6 102 18 105/81 98 10/18/16 01:22 97.4 117 20 121/92 98 10/17/16 20:33 98.1 102 20 121/82 99 10/17/16 18:04 100 Room Air 10/17/16 17:18 97.7 80 20 110/76 100 10/17/16 10/17/16 10/18/16 15:00 23:00 07:00 Intake Total 745 ml Output Total 700 ml 550 ml Balance 45 ml -550 ml Intake Oral 0 ml Tube Feeding 745 ml Output Urine Total 700 ml 550 ml . Laboratory Tests Test 10/16/16 10/17/16 10/18/16 15:59 10:03 06:59 Sodium Level 151 MEQ/L 151 MEQ/L 147 MEQ/L Potassium Level 3.4 MEQ/L 3.8 MEQ/L 4.9 MEQ/L Chloride Level 110 MEQ/L 113 MEQ/L 111 MEQ/L Carbon Dioxide Level 31.7 MEQ/L 31.3 MEQ/L 26.6 MEQ/L Anion Gap 9 MEQ/L 7 MEQ/L 9 MEQ/L Blood Urea Nitrogen 34 MG/DL 29 MG/DL 27 MG/DL Creatinine 0.82 MG/DL 0.84 MG/DL 0.85 MG/DL Estimat Glomerular Filtration 124 ML/MIN 120 ML/MIN 119 ML/MIN Rate Random Glucose 101 MG/DL 106 MG/DL 147 MG/DL Calcium Level 9.7 MG/DL 9.9 MG/DL 9.4 MG/DL Imaging Last Impressions Chest X-Ray 10/11/16 0000 Signed Impressions: Service Date/Time: Tuesday, October 11, 2016 21:23 - CONCLUSION: 1. Bilateral hazy airspace disease. Differential diagnosis includes edema and aspiration. Sumit Bourgeois MD Hip Aspiration/Injection 10/08/16 0000 Signed Impressions: Service Date/Time: Tuesday, October 11, 2016 13:41 - CONCLUSION: Uncomplicated aspiration as above. Minimal fluid on the right. No identifiable fluid on the left Clayton Max MD Lower Extremity Ultrasound 10/06/16 0000 Signed Impressions: Service Date/Time: September 17:29 - CONCLUSION: Normal examination. Josafat Meyer MD CT Angiography 10/06/16 0000 Signed Impressions: Service Date/Time: September 20:31 - CONCLUSION: Minimal right upper lobe infiltrate and basilar atelectasis. No evidence of pulmonary embolism.. Josafat Meyer MD Abdomen/Pelvis CT 10/06/16 0000 Signed Impressions: Service Date/Time: September 20:31 - CONCLUSION: No evidence of pelvic abscess. Josafat Meyer MD Upper Extremity Ultrasound 09/28/16 Signed Impressions: Service Date/Time: Wednesday, September 28, 2016 19:15 - CONCLUSION: 1. Occlusive superficial thrombosis in the left cephalic vein near the antecubital fossa. No deep venous thrombosis. Sumit Bourgeois MD Renal Ultrasound 08/28/16 0000 Signed Impressions: Service Date/Time: Sunday, August 28, 2016 20:03 - CONCLUSION: Mild increased echotexture of both kidneys. Baldev Vu MD Lumbar Puncture Fluoroscopy 08/17/16 0000 Signed Impressions: Service Date/Time: Wednesday, August 17, 2016 12:26 - CONCLUSION: Uncomplicated fluoroscopically guided lumbar puncture. Vishal Beckford Jr., MD Brain MRI 08/17/16 0000 Signed Impressions: Service Date/Time: Wednesday, August 17, 2016 13:28 - CONCLUSION: Remote long-standing areas of abnormality in the brainstem and middle cerebellar peduncle consistent with remote infarcts or contusion. No acute intracranial abnormality. Chacho Bright MD Abdomen X-Ray 08/17/16 0000 Signed Impressions: Service Date/Time: Wednesday, August 17, 2016 13:02 - CONCLUSION: No evidence of obstruction. No MRI incompatible foreign body is identified. Chacho Bright MD Head CT 08/16/16 0000 Signed Impressions: Service Date/Time: Tuesday, August 16, 2016 09:55 - CONCLUSION: Chronic ischemic changes left frontal lobe possibly from evidence of previous ventriculostomy placement, unchanged. No acute intracranial abnormality. Gen Potter MD Modified Barium Swallow 08/15/16 0000 Signed Impressions: Service Date/Time: Monday, August 15, 2016 00:00 - CONCLUSION: See report above and speech pathology report Chacho Bright MD Physical Exam GENERAL: Poorly nourished, chronically ill appearing patient. SKIN: Old scars on arms. EYES: Pupils equal round and reactive. Extraocular motions intact. No scleral icterus. No injection or drainage. ENT: moist mucosae drooling CARDIOVASCULAR: HS audible. No murmur. RESPIRATORY:. Breath sounds equal bilaterally. clear to auscultation; very shallow GASTROINTESTINAL: Abdomen soft, non-tender, minimally distended. : maurice in place with clear yellow urine MUSCULOSKELETAL: Extremities without clubbing, cyanosis, or edema. Wasting and contractures. NEUROLOGICAL: Lethargic. Not tracking Psych: unable to assess IV line sites with no e.o infection. 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 (2) Fever, and Leucocytosis: likely non infectious at this point. - procalcitonine low (3) GI bleed: from ulcer; no e/o C.diff (4) Buttock wound - no e/o infection; colonized with VRE, pseudomonas bilateral hip effusions ? septic arthritis vs avascular necrosis. sp IR guided aspiration of R hip : bloody tap 800K RBC, 100 WBC Low grade (1/4) coag negative staph bactermeia, likely no clin significance Plan: Follow blood cultures Follow UA/urine cultures. DC Zosyn IV DC Vanco IV Observe off antibiotics. Suspect this is aseptic meningitis from Neurobehcets disease. Would benefit from ocean transportation intermediary steroids (will defer to Neurology) Will sign off please call back if any change in clinical condition or questions. Berna Reyes MD Oct 18, 2016 14:43
--- NOTE | 2016-10-18 14:43 | HHI.PR ---
Subjective Remarks Patient getting clean by the nurse, she told me the rectal tube still leaking however his decubitus ulcer looks dry and clean Sodium improved from 151-147, patient started on prednisone and azathioperine per neurology Objective Vitals Vital Signs Date Time Temp Pulse Resp B/P Pulse Ox O2 Delivery O2 Flow Rate FiO2 10/18/16 13:03 96.4 100 20 110/76 97 10/18/16 07:30 97.2 107 20 109/82 100 10/18/16 05:18 97.6 102 18 105/81 98 10/18/16 01:22 97.4 117 20 121/92 98 10/17/16 20:33 98.1 102 20 121/82 99 10/17/16 18:04 100 Room Air 10/17/16 17:18 97.7 80 20 110/76 100 I/O 10/17/16 10/17/16 10/17/16 10/18/16 10/18/16 10/18/16 07:00 15:00 23:00 07:00 15:00 23:00 Intake Total 0 ml 745 ml Output Total 400 ml 700 ml 550 ml 700 ml Balance -400 ml 45 ml -550 ml -700 ml Intake Oral 0 ml 0 ml Tube Feeding 745 ml Output Urine Total 400 ml 700 ml 550 ml 700 ml Result Diagram: 10/18/16 0659 Objective Remarks GENERAL: This frail chronically ill 46 years old male CARDIOVASCULAR: Regular rate and rhythm without murmurs, gallops, or rubs. RESPIRATORY: Fair entry. No wheezes, rales, or rhonchi. GASTROINTESTINAL: Abdomen soft, non-tender, nondistended. 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 (4) GI bleed ICD Code: K92.2 Status: Resolved (5) HCAP (healthcare-associated pneumonia) ICD Code: J18.9 Status: Resolved (6) UTI (urinary tract infection) ICD Code: N39.0 Status: Resolved (7) Leucocytosis ICD Code: D72.829 Status: Acute (8) Fever ICD Code: R50.9 Status: Acute (9) Effusion of hip joint ICD Code: M25.459 Status: Acute Assessment and Plan 10/16: Third day of pulse steroid dose recommended I neurology to be followed by tapering prednisone and possible azathioprine will defer to neurology 10/17: Not significant improvement, appreciated neurology recommendation, starting tapering prednisone and Azathioprine, increase free water flush to 200- q6 hours, will give half-normal saline 500 cc for sodium 151 10/18: Started on prednisone and Azathioperine, sodium improved from 151-147, monitor BMP in a.m. 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 -09/26 CT abdomen/pelvis showed no acute findings -Colonoscopy done on 09/27 with no active bleeding. S/P PEG placement Sepsis Persistent Leukocytosis Right upper lung pneumonia-resolved Sacral decubitus-colonized VRE, pseudomonas S/P hip aspiration by IR 10/11 s/p abx per ID (vancomycin and Zosyn) Pancultured 10/09 CT abdomen/pelvis 09/26: No acute findings Pertinent cultures 09/25 C-diff PCR negative 09/10/16 Wound culture from sacral decubitus: Pseudo-fluoresceins/[place], enterococcus faecalis, enterococcus faecium VRE 08/26/16 urine culture with Daphney parapsilosis ID following Dr. Reyes Blood culture-staph epi(possible contaminant) on 10/05 FF fluid studies from hip aspiration Ortho is following PROPHYLAXIS Prevacid 30mg BID for GI protection SCD for DVT prophylaxis, -Doppler US LE 10/06: No DVT -Doppler US UE 09/28: Occlusive superficial thrombosis in the left cephalic vein near the antecubital fossa. No DVT Problem Qualifiers (1) GI bleed: Qualified Code: K92.2 - Gastrointestinal hemorrhage, unspecified gastrointestinal hemorrhage type (2) UTI (urinary tract infection): Qualified Code: N30.00 - Acute cystitis without hematuria (3) Effusion of hip joint: Qualified Code: M25.459 - Effusion of hip joint, unspecified laterality Whit Aquino MD Oct 18, 2016 14:43
--- NOTE | 2016-10-18 15:16 | HHI.HCPN ---
Reason for visit a. To assist with evaluation and management of symptoms including: debility, encephalopathy b. To assist medical decision maker(s) with: better understanding of current medical conditions; weighing benefits/burdens of medical treatment options; making medical treatment decisions. . Subjective/Interval History Patient open eyes but does not track. Could not follow commands. No purposeful movement. Afebrile. Chest X ray 2 days ago negative. . Family/friend interactions no family at bedside. Advance Directives Living Will: Never completed Health Care Surrogate: Copy in medical record Durable Power of Grant Officer: Never completed Advance Directive Specifics Health Care Surrogate(s): No living will or healthcare surrogate designation found in medical records. Patricia Harrell acting as healthcare proxy. Unclear at this time if they are legally . . Documented care wishes: No living well documented. Objective Vital Signs Date Time Temp Pulse Resp B/P Pulse Ox O2 Delivery O2 Flow Rate FiO2 10/18/16 13:03 96.4 100 20 110/76 97 10/18/16 07:30 97.2 107 20 109/82 100 10/18/16 05:18 97.6 102 18 105/81 98 10/18/16 01:22 97.4 117 20 121/92 98 10/17/16 20:33 98.1 102 20 121/82 99 10/17/16 18:04 100 Room Air 10/17/16 17:18 97.7 80 20 110/76 100 Intake & Output 10/18/16 10/18/16 07:00 19:00 Output Total 550 ml 700 ml Balance -550 ml -700 ml Output Urine Total 550 ml 700 ml Physical Exam CONSTITUTIONAL/GENERAL: This is a thin, middle aged male patient in no acute distress, eyes open. TUBES/LINES/DRAINS: PIV's, PEG tube, condom catheter, taking a shield SKIN: No jaundice. Skin temperature appropriate. Not diaphoretic. HEAD: Atraumatic. Normocephalic. EYES: Pupils equal and round and reactive. ENT: Unable to assess hearing secondary to responsiveness. Nose without bleeding or purulent drainage. Moderate amount of oral clear secretions. NECK: Trachea midline. Supple, nontender. CARDIOVASCULAR: Tachycardic. No Murmurs, gallops, or rubs. No JVD. Peripheral pulses symmetric. RESPIRATORY/CHEST: Shallow respirations with diminished air exchange laterally, scattered rhonchi. GASTROINTESTINAL: Abdomen soft, non-tender, nondistended. PEG tube in place. No guarding. Bowel sounds present. GENITOURINARY: Without palpable bladder distension. Condom catheter draining clear yellow urine MUSCULOSKELETAL: Extremities without clubbing, cyanosis, or edema. Muscle wasting noted. Flexion contractures in bilateral lower extremities. NEUROLOGICAL: Encephalopathic. Nonverbal. Does not track with eyes. No purposeful movement observed. PSYCHIATRIC: Unable to assess secondary to patient's level of responsiveness . Diagnostic Tests Laboratory Laboratory Tests Test 10/16/16 10/17/16 10/18/16 15:59 10:03 06:59 Sodium Level 151 MEQ/L 151 MEQ/L 147 MEQ/L (136-145) (136-145) (136-145) Potassium Level 3.4 MEQ/L 3.8 MEQ/L 4.9 MEQ/L (3.5-5.1) (3.5-5.1) (3.5-5.1) Chloride Level 110 MEQ/L 113 MEQ/L 111 MEQ/L (98-107) (98-107) (98-107) Carbon Dioxide Level 31.7 MEQ/L 31.3 MEQ/L 26.6 MEQ/L (21.0-32.0) (21.0-32.0) (21.0-32.0) Anion Gap 9 MEQ/L (5-15) 7 MEQ/L (5-15) 9 MEQ/L (5-15) Blood Urea Nitrogen 34 MG/DL (7-18) 29 MG/DL (7-18) 27 MG/DL (7-18) Creatinine 0.82 MG/DL 0.84 MG/DL 0.85 MG/DL (0.60-1.30) (0.60-1.30) (0.60-1.30) Estimat Glomerular Filtration 124 ML/MIN 120 ML/MIN 119 ML/MIN Rate (>89) (>89) (>89) Random Glucose 101 MG/DL 106 MG/DL 147 MG/DL (74-106) (74-106) (74-106) Calcium Level 9.7 MG/DL 9.9 MG/DL 9.4 MG/DL (8.5-10.1) (8.5-10.1) (8.5-10.1) Result Diagram: 10/18/16 0659 Imaging Last Impressions Chest X-Ray 10/16/16 0000 Signed Impressions: Service Date/Time: Monday, October 17, 2016 00:09 - CONCLUSION: No acute pulmonary infiltrates. Kel Gay MD Hip Aspiration/Injection 10/08/16 0000 Signed Impressions: Service Date/Time: Tuesday, October 11, 2016 13:41 - CONCLUSION: Uncomplicated aspiration as above. Minimal fluid on the right. No identifiable fluid on the left Clayton Max MD Lower Extremity Ultrasound 10/06/16 0000 Signed Impressions: Service Date/Time: September 17:29 - CONCLUSION: Normal examination. Josafat Meyer MD CT Angiography 10/06/16 0000 Signed Impressions: Service Date/Time: September 20:31 - CONCLUSION: Minimal right upper lobe infiltrate and basilar atelectasis. No evidence of pulmonary embolism.. Josafat Meyer MD Abdomen/Pelvis CT 10/06/16 0000 Signed Impressions: Service Date/Time: September 20:31 - CONCLUSION: No evidence of pelvic abscess. Josafat Meyer MD Upper Extremity Ultrasound 09/28/16 0000 Signed Impressions: Service Date/Time: Wednesday, September 28, 2016 19:15 - CONCLUSION: 1. Occlusive superficial thrombosis in the left cephalic vein near the antecubital fossa. No deep venous thrombosis. Sumit Bourgeois MD Renal Ultrasound 08/28/16 0000 Signed Impressions: Service Date/Time: Sunday, August 28, 2016 20:03 - CONCLUSION: Mild increased echotexture of both kidneys. Baldev Vu MD Lumbar Puncture Fluoroscopy 08/17/16 0000 Signed Impressions: Service Date/Time: Wednesday, August 17, 2016 12:26 - CONCLUSION: Uncomplicated fluoroscopically guided lumbar puncture. Vishal Beckford Jr., MD Brain MRI 08/17/16 0000 Signed Impressions: Service Date/Time: Wednesday, August 17, 2016 13:28 - CONCLUSION: Remote long-standing areas of abnormality in the brainstem and middle cerebellar peduncle consistent with remote infarcts or contusion. No acute intracranial abnormality. Chacho Bright MD Abdomen X-Ray 08/17/16 0000 Signed Impressions: Service Date/Time: Wednesday, August 17, 2016 13:02 - CONCLUSION: No evidence of obstruction. No MRI incompatible foreign body is identified. Chacho Bright MD Head CT 08/16/16 0000 Signed Impressions: Service Date/Time: Tuesday, August 16, 2016 09:55 - CONCLUSION: Chronic ischemic changes left frontal lobe possibly from evidence of previous ventriculostomy placement, unchanged. No acute intracranial abnormality. Gen Potter MD Modified Barium Swallow 08/15/16 0000 Signed Impressions: Service Date/Time: Monday, August 15, 2016 00:00 - CONCLUSION: See report above and speech pathology report Chacho Bright MD Procedures * 08/19/16 -PEG tube placement * 08/17/16- lumbar puncture * 10/11/16ultrasound guided aspiration, right hip region. . 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 Now bed bound , completely dependent for all ADLs. Receiving artificial nutrition via PEG tube. Flexion contractures in bilateral lower extremities. (2) Encephalopathy Comment: Patient with diagnosis of neuro-behcet. Patient is bed bound, non- verbal. Eyes are open, but do not track. No purposeful movement. Pertinent Non-Medical Issues Psychosocial: Reported as . Unknown if he has any children. Spiritual: No spiritual affiliations. Legal: No living will or advanced directives found in medical records. Patricia Harrell presented as and has been acting as healthcare proxy. Ethical issues impacting care: No living will or advanced directives found in medical records. Patricia Harrell presented as and has been acting as healthcare proxy. . Important Contacts Patricia Mendoza. [phone]. . Prognosis Mr. 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 Patient presented to the ED on 08/13/16 via EMS were reports of decreased oral intake for the prior 2-3 days and skin tear to left upper extremity. He was admitted for sepsis. Patient is at high risk for further complications, continue decline and . His diagnosis of neuro- Behcet's syndrome was done at [facility]. Code Status: Full Code Plan * FULL CODE-Pt when he had capacity endorsed a full code. * Decision-making: Patient is currently not capacitated to participate in medical decision making. On 09/29/16, the patient endorsed that Patricia Vi with his and would be proxy under [place] statutes. At that time he verbally gave permission for Patricia to make medical decisions for him should he lose capacity and act as his healthcare surrogate. Patient also gave verbal approval for Patricia to sign consents for medical procedures. It was difficult for him to sign documents secondary to his neuro muscular deficits and contractures. Conversation was witnessed by nurses. * Goals: Goals are aggressive. * Symptom managementdebility: Progressive secondary to Neuro-Behcet's syndrome , CVA. Now bed bound, completely dependent for all ADLs. Receiving artificial nutrition via PEG tube. Flexion contractures in bilateral lower extremities. No recommendations at this time. * Very difficult for palliative care to meet with Cruz, multiple messages left, letters sent. We have set up a family conference in which she did not show up. * Palliative care will continue to follow-up with this patient on as needed bases only. . Time Spent Total Floor Time (mins): 25 >50% Counseling/Coord of Care: Yes Attestation To help prompt me to consider important information that might be impacting today's encounter and assessment, information from prior notes written by myself or my colleagues may have been "brought forward" into today's note. My signature on this note, however, is an attestation that I personally performed the exam, history, and/or decision-making noted today, and, unless otherwise indicated, the interactions with patient, family, and staff as well as the review of records all occurred today. I also attest that the listed assessment and stated plan reflect my best clinical judgment today based on the combination of historical information, prior notes, and today's exam/ interactions. When time spent is documented, it refers only to time spent today by the signer, or if indicated, combined time spent today by collaborating physician/nurse practitioner. Sekou Chen MD Oct 18, 2016 15:16
[2016-10-19] VITALS (10 sets, daily range): BP systolic 98–129; BP diastolic 65–89; PULSE 91–119; RESP 16–20; TEMP 96.2–99.9; O2SAT 96–100
[2016-10-19] MEDS: CHLORHEXIDINE GLUCONATE 2 % 1 PACK (2 CLOTHS) TOP SCH (03:40)
[2016-10-19] MEDS: INSULIN NovoLIN REGULAR SUPPLEMENTAL SCALE SQ SCH ×4 (04:23→23:00)
[2016-10-19] MEDS: azaTHIOprine 50 MG TAB PO SCH ×2 (05:48→17:43)
[2016-10-19] MEDS: METOPROLOL TARTRATE 50 MG TAB PO SCH ×2 (09:00→23:26)
[2016-10-19] MEDS: CHLORHEXIDINE GLUCONATE 0.12% OROPHARYNG SCH ×2 (09:00→17:44)
[2016-10-19] MEDS: SODIUM CHLORIDE 0.9% FLUSH 10 ML FLUSH IV FLUSH SCH ×2 (09:00→23:26)
--- NOTE | 2016-10-19 09:10 | HHI.PR ---
Review/Management Daily Summary 08/18 discussed with RN, stable overall data seen, lp abnormal csf meningites/encephalitis? 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 will also defer to Dr. Jessica next week d/w medical yesterday i.d. following 10/14 seen back in July as above exam remains markedly impaired as before he is not as responsive as before today he follows commands by clearly griping with his left hand on request spastic quadruparesis right more than left not nodding as he did before, not attempting to verbalize suggest pulse steroids for 3 days followed by po steroids taper and also consider azathioprine 100 mg medical terminologist supportive care otherwise 10/16 little more responsive with pulse steroids if medical team agrees we could do a taper steroids starting tomorrow , for 2 weks, start 40 mg prednisone or comprobable iv decadron/solumedrol also start azathioprine 50 mg bid po/peg, monitor lft's and cbc monthly 10/17 eyes open but not following any commands, some upper airway congestion plans as before prognosis bleak, doubt of much neuro improvement 10/19 basically unchanged he clearly follows commands today by looking up and down on every occasion very minimal if any gaze preservation laterally minimal head movement 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 neuro Behcet syndrome on prednisone taper and azathioprine supportive care, would suggest comfort care, very poor neuro prognosis Subjective Subjective Comments No acute events reported spoke to RN Active Medications Current Medications Medications (Trade) Dose Ordered Sig/Beau Route Start Time Stop Time Status Last Admin (Tylenol) 650 mg Q4H PRN PO 08/13/16 14:00 10/10/16 20:56 (Tylenol Supp) 650 mg Q6H PRN RECTAL 08/15/16 16:30 09/06/16 20:06 (PROzac) 10 mg DAILY PO 08/24/16 09:00 10/18/16 09:52 (Lovenox Inj) 40 mg Q24H SQ 09/02/16 09:00 Hold 09/25/16 08:30 (Zofran Liq) 4 mg Q6H PRN PEG 09/11/16 16:00 (Miralax) 17 gm DAILY PRN PEG 09/11/16 16:00 (Santyl Oint) 1 applic DAILY TOP 09/14/16 16:00 10/18/16 09:00 (D50w (Vial) Inj) 25 ml UNSCH PRN IV PUSH 09/25/16 16:15 (Glucagon Inj) 1 mg UNSCH PRN OTHER 09/25/16 16:15 (NovoLIN R SUPPLEMENTAL SCALE) 1 Q6H SQ 09/25/16 17:00 10/18/16 06:22 (Pill Splitter) 1 ea UNSCH PRN OTHER 09/26/16 09:00 (Prevacid Odt) 30 mg BID NG 09/30/16 10:15 10/18/16 21:47 ([place] 5-325 Mg) 1 tab Q4H PRN PEG 10/02/16 13:00 10/16/16 09:20 (Motrin Liq) 200 mg Q6H PRN PEG 10/07/16 01:00 10/12/16 20:20 (NS Flush) 2 ml UNSCH PRN IV FLUSH 10/09/16 10:00 10/13/16 12:27 (NS Flush) 2 ml BID IV FLUSH 10/09/16 21:00 10/18/16 21:47 Miscellaneous Information 1 Q361D XX 10/09/16 10:00 (Chlorhexidine 2% Cloth) Taper DAILY@04 TOP 10/10/16 04:00 10/06/17 03:59 10/16/16 04:00 (Chlorhexidine 2% Cloth) 3 pack UNSCH PRN TOP 10/09/16 10:00 (Senna Liq) 8.8 mg DAILY PO 10/10/16 09:00 10/18/16 09:51 (Lopressor) 50 mg Q12HR PO 10/10/16 21:00 10/18/16 21:47 Non-Formulary Medication CHLORHEXIDINE GLUCONATE 0.12% 30... BIDPC OROPHARYNG 10/17/16 20:00 10/18/16 17:28 (Deltasone) 40 mg DAILY PO 10/17/16 18:30 10/18/16 09:55 (Imuran) 50 mg BID@06,18 PO 10/18/16 06:00 10/19/16 05:48 Allergies Allergies Coded Allergies *MDRO Multi-Drug Resistant Organism (Verified Adverse Reaction, Unknown, ) Uncoded Allergies ADHESIVE TAPE ( Allergy, Severe, 09/21/16) Review of Systems All other ROS: ROS reviewed as documented in chart Exam I&O / VS 10/18/16 10/18/16 10/19/16 15:00 23:00 07:00 Intake Total 1997 ml 686 ml 486 ml Output Total 700 ml 750 ml Balance 1297 ml 686 ml -264 ml IV Total 100 ml Tube Feeding 1497 ml 486 ml 486 ml Other 400 ml 200 ml Output Urine Total 700 ml 750 ml Vital Signs Date Time Temp Pulse Resp B/P Pulse Ox O2 Delivery O2 Flow Rate FiO2 10/19/16 08:17 96.8 104 18 108/71 99 10/19/16 06:31 98 21 10/19/16 04:18 96.2 91 18 114/79 96 10/19/16 00:39 97.4 99 16 128/89 100 10/18/16 20:00 97.8 101 20 117/82 94 10/18/16 17:56 98 Nasal Cannula 2.00 10/18/16 16:37 96.8 101 20 122/84 98 10/18/16 13:03 96.4 100 20 110/76 97 Objective Micro and Labs Laboratory Tests Test 10/16/16 10/17/16 10/18/16 15:59 10:03 06:59 Sodium Level 151 MEQ/L 151 MEQ/L 147 MEQ/L (136-145) (136-145) (136-145) Potassium Level 3.4 MEQ/L (3.5-5.1) Chloride Level 110 MEQ/L 113 MEQ/L 111 MEQ/L (98-107) (98-107) (98-107) Blood Urea Nitrogen 34 MG/DL (7-18) 29 MG/DL (7-18) 27 MG/DL (7-18) Random Glucose 147 MG/DL (74-106) Wolfgang Jessica MD Oct 19, 2016 09:10
[2016-10-19] MEDS: FLUoxetine HCL 10 MG CAP PO SCH (10:31)
[2016-10-19] MEDS: SENNOSIDES SYRUP 8.8 MG/5 ML CUP PO SCH (10:31)
[2016-10-19] MEDS: predniSONE 20 MG TAB PO SCH (10:32)
[2016-10-19] MEDS: LANSOPRAZOLE SOLUTAB 30 MG TAB NG SCH ×2 (10:32→23:26)
[2016-10-19] MEDS: COLLAGENASE OINT 30 GM TUBE TOP SCH (10:38)
--- NOTE | 2016-10-19 12:32 | HHI.HCPN ---
Sekou Chen MD Oct 19, 2016 12:32 set up family appointment in which she decline to return, or or miss. I spoke to Ms. Lebron today reviewed pt's condition and poor prognosis. Reviewed neurology input. Reviewed his quality of life. Recommended Hospice and change to DNR to Ms. Lebron. She stated she understand, she said "I wish I did not have to make these decisions." She stated she is going to call her Mom in [place]. I gave Mindya my cell phone number. I told her I will call her tomorrow and ask for her decision, she is amenable to answering. Sekou Chen M.D. Sekou Chen MD Oct 19, 2016 12:32
--- NOTE | 2016-10-19 15:05 | HHI.HCPN ---
Reason for visit a. To assist with evaluation and management of symptoms including: debility, encephalopathy b. To assist medical decision maker(s) with: better understanding of current medical conditions; weighing benefits/burdens of medical treatment options; making medical treatment decisions. . Subjective/Interval History Sleeping and could not get much responsive for pt at my visit. Afebrile. There is leukocytosis. Neurology saw pt; no neurological improvement, poor prognosis and recommends comfort measures. Only. . Family/friend interactions I was able to reach Lucille Lebron by phone today. Review his current condition , poor prognosis and recommend hospice, and transition to comfort measures only. She ask needs to talk to her mom in [place]. I was able to speak with pt's mom in [place]- very tearful but appreciative. May make a trip to see patient. Pt's ex also called, was tearful, but appreciative of the call. Ask to bring pt's 19 year and 11 year children to see him. Advance Directives Living Will: Never completed Health Care Surrogate: Copy in medical record Durable Power of Integrity Analyst: Never completed Advance Directive Specifics Health Care Surrogate(s): No living will or healthcare surrogate designation found in medical records. Patricia Harrell acting as healthcare proxy. Unclear at this time if they are legally . . Documented care wishes: No living well documented. Objective Vital Signs Date Time Temp Pulse Resp B/P Pulse Ox O2 Delivery O2 Flow Rate FiO2 10/19/16 12:13 99.9 115 18 115/67 100 10/19/16 08:17 96.8 104 18 108/71 99 10/19/16 06:31 98 21 10/19/16 04:18 96.2 91 18 114/79 96 10/19/16 00:39 97.4 99 16 128/89 100 10/18/16 20:00 97.8 101 20 117/82 94 10/18/16 17:56 98 Nasal Cannula 2.00 10/18/16 16:37 96.8 101 20 122/84 98 Intake & Output 10/19/16 10/19/16 07:00 19:00 Intake Total 1172 ml Output Total 750 ml Balance 422 ml Tube Feeding 972 ml Other 200 ml Output Urine Total 750 ml Physical Exam CONSTITUTIONAL/GENERAL: This is a thin, middle aged male patient in no acute distress, sleeping, briefly open eyes. TUBES/LINES/DRAINS: PIV's, PEG tube, condom catheter, taking a shield SKIN: No jaundice. Skin temperature appropriate. Not diaphoretic. HEAD: Atraumatic. Normocephalic. EYES: Pupils equal and round and reactive. ENT: Unable to assess hearing secondary to responsiveness. Nose without bleeding or purulent drainage. Moderate amount of oral clear secretions. NECK: Trachea midline. Supple, nontender. CARDIOVASCULAR: Tachycardic. No Murmurs, gallops, or rubs. No JVD. Peripheral pulses symmetric. RESPIRATORY/CHEST: Shallow respirations with diminished air exchange laterally, scattered rhonchi. GASTROINTESTINAL: Abdomen soft, non-tender, nondistended. PEG tube in place. No guarding. Bowel sounds present. GENITOURINARY: Without palpable bladder distension. Condom catheter draining clear yellow urine MUSCULOSKELETAL: Extremities without clubbing, cyanosis, or edema. Muscle wasting noted. Flexion contractures in bilateral lower extremities. NEUROLOGICAL: Encephalopathic. Nonverbal. No purposeful movement observed. PSYCHIATRIC: Unable to assess secondary to patient's level of responsiveness . Diagnostic Tests Laboratory Laboratory Tests Test 10/16/16 10/17/16 10/18/16 15:59 10:03 06:59 Sodium Level 151 MEQ/L 151 MEQ/L 147 MEQ/L (136-145) (136-145) (136-145) Potassium Level 3.4 MEQ/L 3.8 MEQ/L 4.9 MEQ/L (3.5-5.1) (3.5-5.1) (3.5-5.1) Chloride Level 110 MEQ/L 113 MEQ/L 111 MEQ/L (98-107) (98-107) (98-107) Carbon Dioxide Level 31.7 MEQ/L 31.3 MEQ/L 26.6 MEQ/L (21.0-32.0) (21.0-32.0) (21.0-32.0) Anion Gap 9 MEQ/L (5-15) 7 MEQ/L (5-15) 9 MEQ/L (5-15) Blood Urea Nitrogen 34 MG/DL (7-18) 29 MG/DL (7-18) 27 MG/DL (7-18) Creatinine 0.82 MG/DL 0.84 MG/DL 0.85 MG/DL (0.60-1.30) (0.60-1.30) (0.60-1.30) Estimat Glomerular Filtration 124 ML/MIN 120 ML/MIN 119 ML/MIN Rate (>89) (>89) (>89) Random Glucose 101 MG/DL 106 MG/DL 147 MG/DL (74-106) (74-106) (74-106) Calcium Level 9.7 MG/DL 9.9 MG/DL 9.4 MG/DL (8.5-10.1) (8.5-10.1) (8.5-10.1) Result Diagram: 10/18/16 0659 Procedures * 08/19/16 -PEG tube placement * 08/17/16- lumbar puncture * 10/11/16ultrasound guided aspiration, right hip region. . 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 Now bed bound , completely dependent for all ADLs. Receiving artificial nutrition via PEG tube. Flexion contractures in bilateral lower extremities. (2) Encephalopathy Comment: Patient with diagnosis of neuro-behcet. Patient is bed bound, non- verbal. Eyes are open, but do not track. No purposeful movement. Pertinent Non-Medical Issues Psychosocial: Reported as . Unknown if he has any children. Spiritual: No spiritual affiliations. Legal: No living will or advanced directives found in medical records. Patricia Harrell presented as and has been acting as healthcare proxy. Ethical issues impacting care: No living will or advanced directives found in medical records. Patricia Harrell presented as and has been acting as healthcare proxy. . Important Contacts Patricia Mendoza. [phone]. . Prognosis Mr. 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 Patient presented to the ED on 08/13/16 via EMS were reports of decreased oral intake for the prior 2-3 days and skin tear to left upper extremity. He was admitted for sepsis. Patient is at high risk for further complications, continue decline and . His diagnosis of neuro- Behcet's syndrome was done at [facility]. Code Status: Full Code Plan * FULL CODE-Pt when he had capacity endorsed a full code. Addressed with Lucille today, she needs time to talk with pt's mom. * Decision-making: Patient is currently not capacitated to participate in medical decision making. On 09/29/16, the patient endorsed that Patricia Vi with his and would be proxy under [place] statutes. At that time he verbally gave permission for Patricia to make medical decisions for him should he lose capacity and act as his healthcare surrogate. Patient also gave verbal approval for Patricia to sign consents for medical procedures. It was difficult for him to sign documents secondary to his neuro muscular deficits and contractures. Conversation was witnessed by nurses. * Goals: evolving. Will touch base with Lucille tomorrow again. I was able to reach Lucille Lebron by phone today. Review his current condition, poor prognosis and recommend hospice, and transition to comfort measures only. Palliative have been able to contact miss lebron. We are thankful case management assistance. Previously we have sent letters, numerous voicemails, set up family appointment in which she decline to return, or or . I spoke to Ms. Lebron today reviewed pt's condition and poor prognosis. Reviewed neurology input. Reviewed his quality of life. Recommended Hospice and change to DNR to Ms. Lebron. She stated she understand, she said "I wish I did not have to make these decisions." She stated she is going to call her Mom in [place]. I gave Patricia my cell phone number. I told her I will call her tomorrow and ask for her decision, she is amenable to answering. She ask to talk to pt's mom in [place]. I was able to speak with pt's mom in [place]- very tearful but appreciative. Wants to make a trip to see patient. Pt's ex also called, was tearful, but appreciative of the call. Ask to bring pt's 19 year and 11 year children to see him. * Symptom managementdebility: Progressive secondary to Neuro-Behcet's syndrome , CVA. Now bed bound, completely dependent for all ADLs. Receiving artificial nutrition via PEG tube. Flexion contractures in bilateral lower extremities. no purposeful movement. * Palliative care will continue to follow-up with this patient on as needed bases only. . Attestation To help prompt me to consider important information that might be impacting today's encounter and assessment, information from prior notes written by myself or my colleagues may have been "brought forward" into today's note. My signature on this note, however, is an attestation that I personally performed the exam, history, and/or decision-making noted today, and, unless otherwise indicated, the interactions with patient, family, and staff as well as the review of records all occurred today. I also attest that the listed assessment and stated plan reflect my best clinical judgment today based on the combination of historical information, prior notes, and today's exam/ interactions. When time spent is documented, it refers only to time spent today by the signer, or if indicated, combined time spent today by collaborating physician/nurse practitioner. Sekou Chen MD Oct 19, 2016 15:05 Sekou Chen MD Oct 19, 2016 15:05
--- NOTE | 2016-10-19 18:14 | HHI.PR ---
Subjective Remarks Sitting in bed closed eyes nonverbal Neurology following patient started on prednisone and is Azathioperine doesn't show significant improvement I discussed with nursing, palliative care trying to reach out for the POA but no answer hopefully today today found the right contact Objective Vitals Vital Signs Date Time Temp Pulse Resp B/P Pulse Ox O2 Delivery O2 Flow Rate FiO2 10/19/16 16:37 99.1 117 20 104/79 99 10/19/16 12:13 99.9 115 18 115/67 100 10/19/16 10:40 98 21 10/19/16 08:17 96.8 104 18 108/71 99 10/19/16 06:31 98 21 10/19/16 04:18 96.2 91 18 114/79 96 10/19/16 00:39 97.4 99 16 128/89 100 10/18/16 20:00 97.8 101 20 117/82 94 I/O 10/18/16 10/18/16 10/18/16 10/19/16 10/19/16 10/19/16 07:00 15:00 23:00 07:00 15:00 23:00 Intake Total 1997 ml 686 ml 486 ml Output Total 550 ml 700 ml 750 ml 650 ml Balance -550 ml 1297 ml 686 ml -264 ml -650 ml IV Total 100 ml Tube Feeding 1497 ml 486 ml 486 ml Other 400 ml 200 ml Output Urine Total 550 ml 700 ml 750 ml 650 ml Result Diagram: 10/18/16 0659 Objective Remarks GENERAL: This frail chronically ill 46 years old male CARDIOVASCULAR: Regular rate and rhythm without murmurs, gallops, or rubs. RESPIRATORY: Fair entry. No wheezes, rales, or rhonchi. GASTROINTESTINAL: Abdomen soft, non-tender, nondistended. 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 (4) GI bleed ICD Code: K92.2 Status: Resolved (5) HCAP (healthcare-associated pneumonia) ICD Code: J18.9 Status: Resolved (6) UTI (urinary tract infection) ICD Code: N39.0 Status: Resolved (7) Leucocytosis ICD Code: D72.829 Status: Acute (8) Fever ICD Code: R50.9 Status: Acute (9) Effusion of hip joint ICD Code: M25.459 Status: Acute Assessment and Plan 10/16: Third day of pulse steroid dose recommended I neurology to be followed by tapering prednisone and possible azathioprine will defer to neurology 10/17: Not significant improvement, appreciated neurology recommendation, starting tapering prednisone and Azathioprine, increase free water flush to 200- q6 hours, will give half-normal saline 500 cc for sodium 151 10/18: Started on prednisone and Azathioperine, sodium improved from 151-147, monitor BMP in a.m. 10/19: Continue follow up with palliative care trying to reach out for the power of deputy commonwealth's attorney to address of goal of treatment A/P: 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 Encephalopathy H/O meningitis Left frontal CVA Monitor neuro status and avoid sedatives -Neurology ff- started on pulse steroid therapy- 10/13- till 10/16 - seem to show some improvement EEG 10/09- mild- mod encephalopathy -On Prozac 10mg daily Sinus tachycardia ILopressor 50 mg BID for rate control-monitor HR and BP keep MAP>65mmHg --response to sepsis GI bleed-resolved Continue with Protonix 40 -s/p EGD 09/25 no signs of active bleeding -S/p transfusion 3units PRBC overnight on 09/26 monitor H/H. -09/26 CT abdomen/pelvis showed no acute findings -Colonoscopy done on 09/27 with no active bleeding. S/P PEG placement Sepsis Persistent Leukocytosis Right upper lung pneumonia-resolved Sacral decubitus-colonized VRE, pseudomonas S/P hip aspiration by IR 10/11 s/p abx per ID (vancomycin and Zosyn) Pancultured 10/09 CT abdomen/pelvis 09/26: No acute findings Pertinent cultures 09/25 C-diff PCR negative 09/10/16 Wound culture from sacral decubitus: Pseudo-fluoresceins/[place], enterococcus faecalis, enterococcus faecium VRE 08/26/16 urine culture with Daphney parapsilosis ID following Dr. Reyes Blood culture-staph epi(possible contaminant) on 10/05 FF fluid studies from hip aspiration Ortho is following PROPHYLAXIS Prevacid 30mg BID for GI protection SCD for DVT prophylaxis, -Doppler US LE 10/06: No DVT -Doppler US UE 09/28: Occlusive superficial thrombosis in the left cephalic vein near the antecubital fossa. No DVT Problem Qualifiers (1) GI bleed: Qualified Code: K92.2 - Gastrointestinal hemorrhage, unspecified gastrointestinal hemorrhage type (2) UTI (urinary tract infection): Qualified Code: N30.00 - Acute cystitis without hematuria (3) Effusion of hip joint: Qualified Code: M25.459 - Effusion of hip joint, unspecified laterality Whit Aquino MD Oct 19, 2016 18:14
[2016-10-19] MEDS: ACETAMINOPHEN/HYDROcodone 325 MG/5 MG TAB PEG PRN (23:27)
[2016-10-19] MEDS: IBUPROFEN SUSP 100 MG/5 ML UDC PEG PRN (23:27)
[2016-10-20] VITALS (7 sets, daily range): BP systolic 101–125; BP diastolic 73–93; PULSE 102–124; RESP 18–20; TEMP 96.3–97.9; O2SAT 94–100
[2016-10-20] MEDS: CHLORHEXIDINE GLUCONATE 2 % 1 PACK (2 CLOTHS) TOP SCH (03:41)
[2016-10-20] MEDS: INSULIN NovoLIN REGULAR SUPPLEMENTAL SCALE SQ SCH ×4 (05:00→22:24)
[2016-10-20] MEDS: azaTHIOprine 50 MG TAB PO SCH ×2 (05:38→17:32)
[2016-10-20] MEDS: SODIUM CHLORIDE 0.9% FLUSH 10 ML FLUSH IV FLUSH SCH ×2 (09:00→22:14)
[2016-10-20] MEDS: METOPROLOL TARTRATE 50 MG TAB PO SCH ×2 (09:00→21:00)
[2016-10-20] MEDS: SENNOSIDES SYRUP 8.8 MG/5 ML CUP PO SCH (10:03)
[2016-10-20] MEDS: LANSOPRAZOLE SOLUTAB 30 MG TAB NG SCH ×2 (10:04→22:21)
[2016-10-20] MEDS: COLLAGENASE OINT 30 GM TUBE TOP SCH (10:04)
[2016-10-20] MEDS: FLUoxetine HCL 10 MG CAP PO SCH (10:04)
[2016-10-20] MEDS: predniSONE 20 MG TAB PO SCH (10:05)
[2016-10-20] MEDS: CHLORHEXIDINE GLUCONATE 0.12% OROPHARYNG SCH ×2 (10:06→17:33)
[2016-10-20 13:47] LABS: EOSINOPHIL % 0.2 % (0.0-4.0); HEMATOCRIT 34.5 % (39.0-51.0); HEMOGLOBIN 10.8 GM/DL (13.0-17.0); LYMPH % 3.8 % (9.0-44.0); LYMPHOCYTE # 0.8 TH/MM3 (1.0-4.8); MEAN CELL VOLUME 87.7 FL (80.0-100.0); MEAN CORPUSCULAR HEMOGLOBIN 27.5 PG (27.0-34.0); MEAN CORPUSCULAR HGB CONC 31.3 % (32.0-36.0); MEAN PLATELET VOLUME 8.5 FL (7.0-11.0); MONO % 1.3 % (0.0-8.0); MONOCYTE # 0.3 TH/MM3 (0-0.9); NEUT % 94.7 % (16.0-70.0); PLATELET COUNT 731 TH/MM3 (150-450); RED BLOOD COUNT 3.93 MIL/MM3 (4.50-5.90); RED CELL DISTRIBUTION WIDTH 17.4 % (11.6-17.2); WHITE BLOOD COUNT 20.1 TH/MM3 (4.0-11.0)
[2016-10-20 14:15] LABS: BICARBONATE 26.4 MEQ/L (21.0-32.0); CALCIUM 9.6 MG/DL (8.5-10.1); CREATININE 0.74 MG/DL (0.60-1.30)
--- NOTE | 2016-10-20 15:06 | HHI.HCPN ---
Reason for visit a. To assist with evaluation and management of symptoms including: debility, encephalopathy b. To assist medical decision maker(s) with: better understanding of current medical conditions; weighing benefits/burdens of medical treatment options; making medical treatment decisions. . Subjective/Interval History I am getting more response form patient today. Pt's sodium level improves. Able to moves eyes up and down more, but has tremendous nystagmus. . Family/friend interactions Spoke with Lucille, and ask her to come to have family meeting at 10:30 am tomorrow. Advance Directives Living Will: Never completed Health Care Surrogate: Copy in medical record Durable Power of Aquatics Director: Never completed Advance Directive Specifics Health Care Surrogate(s): No living will or healthcare surrogate designation found in medical records. Patricia Harrell acting as healthcare proxy. Unclear at this time if they are legally . . Documented care wishes: No living well documented. Objective Vital Signs Date Time Temp Pulse Resp B/P Pulse Ox O2 Delivery O2 Flow Rate FiO2 10/20/16 11:30 96.3 110 18 107/79 99 10/20/16 09:37 94 21 10/20/16 08:38 97.9 105 18 109/73 100 10/20/16 04:00 97.3 102 20 101/75 95 10/20/16 00:00 97.6 103 18 125/93 100 10/19/16 23:34 129/89 10/19/16 21:44 98 21 10/19/16 20:00 98.0 119 20 98/65 100 10/19/16 16:37 99.1 117 20 104/79 99 Intake & Output 10/20/16 10/20/16 07:00 19:00 Output Total 600 ml Balance -600 ml Output Urine Total 600 ml # Voids 1 # Bowel Movements 1 Physical Exam CONSTITUTIONAL/GENERAL: This is a thin, middle aged male patient in no acute distress, eyes open. TUBES/LINES/DRAINS: PIV's, PEG tube, condom catheter, taking a shield SKIN: No jaundice. Skin temperature appropriate. Not diaphoretic. HEAD: Atraumatic. Normocephalic. EYES: Pupils equal and round and reactive. Nystagmus, able to move eyes up and down on command. ENT: Unable to assess hearing secondary to responsiveness. Nose without bleeding or purulent drainage. Moderate amount of oral clear secretions. NECK: Trachea midline. Supple, nontender. CARDIOVASCULAR: Tachycardic. No Murmurs, gallops, or rubs. No JVD. Peripheral pulses symmetric. RESPIRATORY/CHEST: Shallow respirations with diminished air exchange laterally, scattered rhonchi. GASTROINTESTINAL: Abdomen soft, non-tender, nondistended. PEG tube in place. No guarding. Bowel sounds present. GENITOURINARY: Without palpable bladder distension. Condom catheter draining clear yellow urine MUSCULOSKELETAL: Extremities without clubbing, cyanosis, or edema. Muscle wasting noted. Flexion contractures in bilateral lower extremities. NEUROLOGICAL: Have some purposeful movement, moving eyes upward to indicate yes , and gazing downward to indicate no. Some motion of head movements. . Diagnostic Tests Laboratory Laboratory Tests Test 10/18/16 10/20/16 06:59 13:20 Sodium Level 147 MEQ/L 141 MEQ/L (136-145) (136-145) Potassium Level 4.9 MEQ/L 4.4 MEQ/L (3.5-5.1) (3.5-5.1) Chloride Level 111 MEQ/L 105 MEQ/L (98-107) (98-107) Carbon Dioxide Level 26.6 MEQ/L 26.4 MEQ/L (21.0-32.0) (21.0-32.0) Anion Gap 9 MEQ/L (5-15) 10 MEQ/L (5-15) Blood Urea Nitrogen 27 MG/DL (7-18) 26 MG/DL (7-18) Creatinine 0.85 MG/DL 0.74 MG/DL (0.60-1.30) (0.60-1.30) Estimat Glomerular Filtration 119 ML/MIN 139 ML/MIN Rate (>89) (>89) Random Glucose 147 MG/DL 152 MG/DL (74-106) (74-106) Calcium Level 9.4 MG/DL 9.6 MG/DL (8.5-10.1) (8.5-10.1) White Blood Count 20.1 TH/MM3 (4.0-11.0) Red Blood Count 3.93 MIL/MM3 (4.50-5.90) Hemoglobin 10.8 GM/DL (13.0-17.0) Hematocrit 34.5 % (39.0-51.0) Mean Corpuscular Volume 87.7 FL (80.0-100.0) Mean Corpuscular Hemoglobin 27.5 PG (27.0-34.0) Mean Corpuscular Hemoglobin 31.3 % Concent (32.0-36.0) Red Cell Distribution Width 17.4 % (11.6-17.2) Platelet Count 731 TH/MM3 (150-450) Mean Platelet Volume 8.5 FL (7.0-11.0) Neutrophils (%) (Auto) 94.7 % (16.0-70.0) Lymphocytes (%) (Auto) 3.8 % (9.0-44.0) Monocytes (%) (Auto) 1.3 % (0.0-8.0) Eosinophils (%) (Auto) 0.2 % (0.0-4.0) Basophils (%) (Auto) 0.0 % (0.0-2.0) Neutrophils # (Auto) 19.0 TH/MM3 (1.8-7.7) Lymphocytes # (Auto) 0.8 TH/MM3 (1.0-4.8) Monocytes # (Auto) 0.3 TH/MM3 (0-0.9) Eosinophils # (Auto) 0.0 TH/MM3 (0-0.4) Basophils # (Auto) 0.0 TH/MM3 (0-0.2) CBC Comment DIFF FINAL Differential Comment Result Diagram: 10/20/16 1320 10/20/16 1320 Imaging Last Impressions Chest X-Ray 10/16/16 0000 Signed Impressions: Service Date/Time: Monday, October 17, 2016 00:09 - CONCLUSION: No acute pulmonary infiltrates. Kel Gay MD Hip Aspiration/Injection 10/08/16 0000 Signed Impressions: Service Date/Time: Tuesday, October 11, 2016 13:41 - CONCLUSION: Uncomplicated aspiration as above. Minimal fluid on the right. No identifiable fluid on the left Clayton Max MD Lower Extremity Ultrasound 10/06/16 0000 Signed Impressions: Service Date/Time: September 17:29 - CONCLUSION: Normal examination. Josafat Meyer MD CT Angiography 10/06/16 0000 Signed Impressions: Service Date/Time: September 20:31 - CONCLUSION: Minimal right upper lobe infiltrate and basilar atelectasis. No evidence of pulmonary embolism.. Josafat Meyer MD Abdomen/Pelvis CT 10/06/16 0000 Signed Impressions: Service Date/Time: September 20:31 - CONCLUSION: No evidence of pelvic abscess. Josafat Meyer MD Upper Extremity Ultrasound 09/28/16 0000 Signed Impressions: Service Date/Time: Wednesday, September 28, 2016 19:15 - CONCLUSION: 1. Occlusive superficial thrombosis in the left cephalic vein near the antecubital fossa. No deep venous thrombosis. Sumit Bourgeois MD Renal Ultrasound 08/28/16 0000 Signed Impressions: Service Date/Time: Sunday, August 28, 2016 20:03 - CONCLUSION: Mild increased echotexture of both kidneys. Baldev Vu MD Lumbar Puncture Fluoroscopy 08/17/16 0000 Signed Impressions: Service Date/Time: Wednesday, August 17, 2016 12:26 - CONCLUSION: Uncomplicated fluoroscopically guided lumbar puncture. Vishal Beckford Jr., MD Brain MRI 08/17/16 0000 Signed Impressions: Service Date/Time: Wednesday, August 17, 2016 13:28 - CONCLUSION: Remote long-standing areas of abnormality in the brainstem and middle cerebellar peduncle consistent with remote infarcts or contusion. No acute intracranial abnormality. Chacho Bright MD Abdomen X-Ray 08/17/16 0000 Signed Impressions: Service Date/Time: Wednesday, August 17, 2016 13:02 - CONCLUSION: No evidence of obstruction. No MRI incompatible foreign body is identified. Chacho Bright MD Head CT 08/16/16 0000 Signed Impressions: Service Date/Time: Tuesday, August 16, 2016 09:55 - CONCLUSION: Chronic ischemic changes left frontal lobe possibly from evidence of previous ventriculostomy placement, unchanged. No acute intracranial abnormality. Gen Potter MD Modified Barium Swallow 08/15/16 0000 Signed Impressions: Service Date/Time: Monday, August 15, 2016 00:00 - CONCLUSION: See report above and speech pathology report Chacho Bright MD Procedures * 08/19/16 -PEG tube placement * 08/17/16- lumbar puncture * 10/11/16ultrasound guided aspiration, right hip region. . 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 Now bed bound , completely dependent for all ADLs. Receiving artificial nutrition via PEG tube. Flexion contractures in bilateral lower extremities. (2) Encephalopathy Comment: Patient with diagnosis of neuro-behcet. Patient is bed bound, non- verbal. Eyes are open, but do not track. No purposeful movement. Pertinent Non-Medical Issues Psychosocial: Reported as . Unknown if he has any children. Spiritual: No spiritual affiliations. Legal: No living will or advanced directives found in medical records. Patricia Harrell presented as and has been acting as healthcare proxy. Ethical issues impacting care: No living will or advanced directives found in medical records. Patricia Harrell presented as and has been acting as healthcare proxy. . Important Contacts Patricia Mendoza. [phone]. . Prognosis Mr. 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 Patient presented to the ED on 08/13/16 via EMS were reports of decreased oral intake for the prior 2-3 days and skin tear to left upper extremity. He was admitted for sepsis. Patient is at high risk for further complications, continue decline and . His diagnosis of neuro- Behcet's syndrome was done at [facility]. Code Status: Full Code Plan * FULL CODE-Pt when he had capacity endorsed a full code. Readdress with Shazia tomorrow with pt. * Decision-making: Appears to able to move eyes up and down on command more, and more responsive. More alert. Neurology indicate pt may be locked in. Lots of nystagmus so making consistent yes or no difficult. Reacess again tomorrow. * Goals: evolving. family meeting with pt and Shazia (pt s HCS, ) tomorrow. I I was able to speak with pt's mom in [place]- very tearful but appreciative. Wants to make a trip to see patient. Pt's ex also called, was tearful, but appreciative of the call. Ask to bring pt's 19 year and 11 year children to see him. * Symptom managementdebility: Progressive secondary to Neuro-Behcet's syndrome , CVA. Now bed bound, completely dependent for all ADLs. Receiving artificial nutrition via PEG tube. Flexion contractures in bilateral lower extremities. some purposeful eye movement again today. * encephalopathy- mentation alertness fluctuates and depend on time of day, but appears to be improving today. * Palliative care will continue to follow-up with this patient . Time Spent Total Floor Time (mins): 35 Face to Face Time (mins): 22 Attestation To help prompt me to consider important information that might be impacting today's encounter and assessment, information from prior notes written by myself or my colleagues may have been "brought forward" into today's note. My signature on this note, however, is an attestation that I personally performed the exam, history, and/or decision-making noted today, and, unless otherwise indicated, the interactions with patient, family, and staff as well as the review of records all occurred today. I also attest that the listed assessment and stated plan reflect my best clinical judgment today based on the combination of historical information, prior notes, and today's exam/ interactions. When time spent is documented, it refers only to time spent today by the signer, or if indicated, combined time spent today by collaborating physician/nurse practitioner. Sekou Chen MD Oct 20, 2016 15:06
--- NOTE | 2016-10-20 15:09 | HHI.PR ---
Subjective Remarks Patient is laying in bed with open eyes today Nonverbal as usual On prednisone and Azathioperine We'll follow with palliative care and neurology Objective Vitals Vital Signs Date Time Temp Pulse Resp B/P Pulse Ox O2 Delivery O2 Flow Rate FiO2 10/20/16 11:30 96.3 110 18 107/79 99 10/20/16 09:37 94 21 10/20/16 08:38 97.9 105 18 109/73 100 10/20/16 04:00 97.3 102 20 101/75 95 10/20/16 00:00 97.6 103 18 125/93 100 10/19/16 23:34 129/89 10/19/16 21:44 98 21 10/19/16 20:00 98.0 119 20 98/65 100 10/19/16 16:37 99.1 117 20 104/79 99 I/O 10/19/16 10/19/16 10/19/16 10/20/16 10/20/16 10/20/16 07:00 15:00 23:00 07:00 15:00 23:00 Intake Total 486 ml Output Total 750 ml 950 ml 300 ml Balance -264 ml -950 ml -300 ml Tube Feeding 486 ml Output Urine Total 750 ml 950 ml 300 ml # Voids 1 # Bowel Movements 1 Result Diagram: 10/20/16 1320 10/20/16 1320 Objective Remarks GENERAL: This frail chronically ill 46 years old male CARDIOVASCULAR: Regular rate and rhythm without murmurs, gallops, or rubs. RESPIRATORY: Fair entry. No wheezes, rales, or rhonchi. GASTROINTESTINAL: Abdomen soft, non-tender, nondistended. 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 (4) GI bleed ICD Code: K92.2 Status: Resolved (5) HCAP (healthcare-associated pneumonia) ICD Code: J18.9 Status: Resolved (6) UTI (urinary tract infection) ICD Code: N39.0 Status: Resolved (7) Leucocytosis ICD Code: D72.829 Status: Acute (8) Fever ICD Code: R50.9 Status: Acute (9) Effusion of hip joint ICD Code: M25.459 Status: Acute Assessment and Plan 10/16: Third day of pulse steroid dose recommended I neurology to be followed by tapering prednisone and possible azathioprine will defer to neurology 10/17: Not significant improvement, appreciated neurology recommendation, starting tapering prednisone and Azathioprine, increase free water flush to 200- q6 hours, will give half-normal saline 500 cc for sodium 151 10/18: Started on prednisone and Azathioperine, sodium improved from 151-147, monitor BMP in a.m. 10/19: Continue follow up with palliative care trying to reach out for the power of associate attorney to address of goal of treatment 10/20: Continue current care until addressing goal of treatment with the POA A/P: 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 Encephalopathy H/O meningitis Left frontal CVA Monitor neuro status and avoid sedatives -Neurology ff- started on pulse steroid therapy- 10/13- till 10/16 - seem to show some improvement EEG 10/09- mild- mod encephalopathy -On Prozac 10mg daily Sinus tachycardia ILopressor 50 mg BID for rate control-monitor HR and BP keep MAP>65mmHg --response to sepsis GI bleed-resolved Continue with Protonix 40 -s/p EGD 09/25 no signs of active bleeding -S/p transfusion 3units PRBC overnight on 09/26 monitor H/H. -09/26 CT abdomen/pelvis showed no acute findings -Colonoscopy done on 09/27 with no active bleeding. S/P PEG placement Sepsis Persistent Leukocytosis Right upper lung pneumonia-resolved Sacral decubitus-colonized VRE, pseudomonas S/P hip aspiration by IR 10/11 s/p abx per ID (vancomycin and Zosyn) Pancultured 10/09 CT abdomen/pelvis 09/26: No acute findings Pertinent cultures 09/25 C-diff PCR negative 09/10/16 Wound culture from sacral decubitus: Pseudo-fluoresceins/[place], enterococcus faecalis, enterococcus faecium VRE 08/26/16 urine culture with Daphney parapsilosis ID following Dr. Reyes Blood culture-staph epi(possible contaminant) on 10/05 FF fluid studies from hip aspiration Ortho is following PROPHYLAXIS Prevacid 30mg BID for GI protection SCD for DVT prophylaxis, -Doppler US LE 10/06: No DVT -Doppler US UE 09/28: Occlusive superficial thrombosis in the left cephalic vein near the antecubital fossa. No DVT Problem Qualifiers (1) GI bleed: Qualified Code: K92.2 - Gastrointestinal hemorrhage, unspecified gastrointestinal hemorrhage type (2) UTI (urinary tract infection): Qualified Code: N30.00 - Acute cystitis without hematuria (3) Effusion of hip joint: Qualified Code: M25.459 - Effusion of hip joint, unspecified laterality Whit Aquino MD Oct 20, 2016 15:09
[2016-10-20] MEDS: ACETAMINOPHEN/HYDROcodone 325 MG/5 MG TAB PEG PRN (17:33)
[2016-10-21 01:16] VITALS: BP 145/88; PULSE 123; RESP 14; TEMP 96.9; O2SAT 97
[2016-10-21] MEDS: CHLORHEXIDINE GLUCONATE 2 % 1 PACK (2 CLOTHS) TOP SCH (04:00)
[2016-10-21] MEDS: INSULIN NovoLIN REGULAR SUPPLEMENTAL SCALE SQ SCH ×4 (05:00→22:55)
[2016-10-21] MEDS: azaTHIOprine 50 MG TAB PO SCH ×2 (05:45→16:41)
[2016-10-21 06:20] VITALS: BP 128/93; PULSE 131; RESP 16; TEMP 96; O2SAT 99
[2016-10-21 07:42] LABS: AUTOMATED NEUTROPHIL # 14.3 TH/MM3 (1.8-7.7); BASOPHIL % 0.2 % (0.0-2.0); EOSINOPHIL # 0.1 TH/MM3 (0-0.4); EOSINOPHIL % 0.7 % (0.0-4.0); HEMATOCRIT 34.3 % (39.0-51.0); LYMPH % 11.2 % (9.0-44.0); LYMPHOCYTE # 1.9 TH/MM3 (1.0-4.8); MEAN CELL VOLUME 86.3 FL (80.0-100.0); MEAN CORPUSCULAR HEMOGLOBIN 27.7 PG (27.0-34.0); MEAN CORPUSCULAR HGB CONC 32.1 % (32.0-36.0); MEAN PLATELET VOLUME 8.9 FL (7.0-11.0); MONO % 4.8 % (0.0-8.0); MONOCYTE # 0.8 TH/MM3 (0-0.9); NEUT % 83.1 % (16.0-70.0); PLATELET COUNT 738 TH/MM3 (150-450); RED BLOOD COUNT 3.98 MIL/MM3 (4.50-5.90); RED CELL DISTRIBUTION WIDTH 17.6 % (11.6-17.2); WHITE BLOOD COUNT 17.2 TH/MM3 (4.0-11.0)
[2016-10-21] MEDS: predniSONE 20 MG TAB PO SCH (07:57)
[2016-10-21] MEDS: SENNOSIDES SYRUP 8.8 MG/5 ML CUP PO SCH (07:57)
[2016-10-21] MEDS: FLUoxetine HCL 10 MG CAP PO SCH (07:57)
[2016-10-21] MEDS: LANSOPRAZOLE SOLUTAB 30 MG TAB NG SCH ×2 (07:57→20:21)
[2016-10-21] MEDS: METOPROLOL TARTRATE 50 MG TAB PO SCH ×2 (07:57→20:22)
[2016-10-21] MEDS: COLLAGENASE OINT 30 GM TUBE TOP SCH (07:58)
[2016-10-21] MEDS: CHLORHEXIDINE GLUCONATE 0.12% OROPHARYNG SCH ×2 (07:58→16:42)
[2016-10-21] MEDS: SODIUM CHLORIDE 0.9% FLUSH 10 ML FLUSH IV FLUSH SCH ×2 (07:59→20:22)
[2016-10-21 08:07] LABS: BICARBONATE 28.5 MEQ/L (21.0-32.0); CALCIUM 9.5 MG/DL (8.5-10.1); CREATININE 0.7 MG/DL (0.60-1.30)
[2016-10-21 08:11] VITALS: BP 121/77; PULSE 133; RESP 20; TEMP 97.3; O2SAT 99
[2016-10-21 08:45] LABS: BANDS 1 % (0-6); LYMPHOCYTES 14 % (9-44); MONOCYTES 4 % (0-8); NEUTROPHIL # MANUAL DIFF 14.1 TH/MM3 (1.8-7.7); POLYS (SEG NEUTROPHILS) 81 % (16-70)
--- NOTE | 2016-10-21 12:22 | HHI.HCPN ---
Reason for visit a. To assist with evaluation and management of symptoms including: debility, encephalopathy b. To assist medical decision maker(s) with: better understanding of current medical conditions; weighing benefits/burdens of medical treatment options; making medical treatment decisions. . Subjective/Interval History Pt is very responsive today. I have met with Lucille prior to going into pt' s room, and she understand I am going to go over goals of care and end of life decision, regarding code status etc with patient. (Pt's , Robb Graham). Nystagmus is less). (Upward gaze for yes and downward gaze for no, very clear today) Testing for capacity. When pt saw Lucille, pt begins to cry. Pt is alert. He is communicative, using upward gaze to communicate Yes, and Donward gaze to indicate no. He could also When I ask him if his last name is Tao, he looked down to indicate no. When I ask him if his last name is Reji, he indicated yes. When I ask him if Lucille is his sister, he indicate no. When I ask him if Lucille is his , he indicate yes, and becomes tearful. Ask him if the grass is usual color is pink, he indicated no. I reviewed with him about his course of hospitalization, his fluctuating medical condition, his quality of life, and risk factor (such as aspirations, infections which likely he will decline from), and his poor prognosis for functional recovering. When I ask him if he understands, he look upward and indicated yes ( and moans and cry) demonstrating understanding, and understand his condition is end-stage. Spoke about risk of code status. When I ask if he wants to designate some other person as Health Care Surrogate, He looked downward and indicated no. He even try to be vocal, and said ah ah, and shook his head as much as he can to indicate not. He reaffirm that if he loses capacity, he wants Lucille Harrell, his , as his health care surrogate. He did not comment when I ask if he wants his children to serve. He maintains he wants Lucille to be Health Care Surrogate. He indicated yes to Intubation and Full Code. Discussed tracheostomy in which he stated yes. He was amenable to completing a living will with Lucille(), RN Radames RISHI Wahl witnessing. He understands his condition is end stage, but his goals are aggressive. He stated If he is not responsive, not communicative on life support for 1 month time, with no improvement; life support can be removed. I ask him a few times and he look up for yes. He means if he is not alert as he is now, (he is communicating now), and unresponsive, just on life support for 1 month, he would not want to go further than that beyond 1 month time. He understand then Shazia will withdraw life support. He indicate yes, look upward. Immediately again, ask him if his last name is Tao, He look downward to indicate no. . Family/friend interactions Please see above. Advance Directives Living Will: Never completed Health Care Surrogate: Copy in medical record Durable Power of Proprietary Trader: Never completed Advance Directive Specifics Health Care Surrogate(s): No living will or healthcare surrogate designation found in medical records. Patricia Harrell acting as healthcare proxy. Unclear at this time if they are legally . . Documented care wishes: completed living will today. Objective Vital Signs Date Time Temp Pulse Resp B/P Pulse Ox O2 Delivery O2 Flow Rate FiO2 10/21/16 08:11 97.3 133 20 121/77 99 10/21/16 06:20 96.0 131 16 128/93 99 10/21/16 01:16 96.9 123 14 145/88 97 10/20/16 20:00 97.8 119 20 103/86 100 10/20/16 17:15 97.2 124 18 108/90 100 Intake & Output 10/21/16 10/21/16 07:00 19:00 Intake Total 400 ml Output Total 1200 ml Balance -1200 ml 400 ml Tube Feeding 200 ml Other 200 ml Output Urine Total 1200 ml # Bowel Movements 0 Physical Exam CONSTITUTIONAL/GENERAL: This is a thin, middle aged male patient in no acute distress, very alert active, communicative, demonstrate acknowledgement.. TUBES/LINES/DRAINS: PIV's, PEG tube, condom catheter, taking a shield SKIN: No jaundice. Skin temperature appropriate. Not diaphoretic. HEAD: Atraumatic. Normocephalic. EYES: Pupils equal and round and reactive. ENT: Unable to assess hearing secondary to responsiveness. Nose without bleeding or purulent drainage. Moderate amount of oral clear secretions. NECK: Trachea midline. Supple, nontender. CARDIOVASCULAR: Tachycardic. No Murmurs, gallops, or rubs. No JVD. Peripheral pulses symmetric. RESPIRATORY/CHEST: Shallow respirations with diminished air exchange laterally, scattered rhonchi. GASTROINTESTINAL: Abdomen soft, non-tender, nondistended. PEG tube in place. No guarding. Bowel sounds present. GENITOURINARY: Without palpable bladder distension. Condom catheter draining clear yellow urine MUSCULOSKELETAL: Extremities without clubbing, cyanosis, or edema. Muscle wasting noted. Flexion contractures in bilateral lower extremities. NEUROLOGICAL: alert, has purposeful movement, Upward gaze, and able to grab and hold with left hand. . Diagnostic Tests Laboratory Laboratory Tests Test 10/20/16 10/21/16 13:20 06:29 White Blood Count 20.1 TH/MM3 17.2 TH/MM3 (4.0-11.0) (4.0-11.0) Red Blood Count 3.93 MIL/MM3 3.98 MIL/MM3 (4.50-5.90) (4.50-5.90) Hemoglobin 10.8 GM/DL 11.0 GM/DL (13.0-17.0) (13.0-17.0) Hematocrit 34.5 % 34.3 % (39.0-51.0) (39.0-51.0) Mean Corpuscular Volume 87.7 FL 86.3 FL (80.0-100.0) (80.0-100.0) Mean Corpuscular Hemoglobin 27.5 PG 27.7 PG (27.0-34.0) (27.0-34.0) Mean Corpuscular Hemoglobin 31.3 % 32.1 % Concent (32.0-36.0) (32.0-36.0) Red Cell Distribution Width 17.4 % 17.6 % (11.6-17.2) (11.6-17.2) Platelet Count 731 TH/MM3 738 TH/MM3 (150-450) (150-450) Mean Platelet Volume 8.5 FL 8.9 FL (7.0-11.0) (7.0-11.0) Neutrophils (%) (Auto) 94.7 % 83.1 % (16.0-70.0) (16.0-70.0) Lymphocytes (%) (Auto) 3.8 % 11.2 % (9.0-44.0) (9.0-44.0) Monocytes (%) (Auto) 1.3 % (0.0-8.0) 4.8 % (0.0-8.0) Eosinophils (%) (Auto) 0.2 % (0.0-4.0) 0.7 % (0.0-4.0) Basophils (%) (Auto) 0.0 % (0.0-2.0) 0.2 % (0.0-2.0) Neutrophils # (Auto) 19.0 TH/MM3 14.3 TH/MM3 (1.8-7.7) (1.8-7.7) Lymphocytes # (Auto) 0.8 TH/MM3 1.9 TH/MM3 (1.0-4.8) (1.0-4.8) Monocytes # (Auto) 0.3 TH/MM3 0.8 TH/MM3 (0-0.9) (0-0.9) Eosinophils # (Auto) 0.0 TH/MM3 0.1 TH/MM3 (0-0.4) (0-0.4) Basophils # (Auto) 0.0 TH/MM3 0.0 TH/MM3 (0-0.2) (0-0.2) CBC Comment DIFF FINAL AUTO DIFF Differential Comment FINAL DIFF MANUAL Sodium Level 141 MEQ/L 139 MEQ/L (136-145) (136-145) Potassium Level 4.4 MEQ/L 4.1 MEQ/L (3.5-5.1) (3.5-5.1) Chloride Level 105 MEQ/L 104 MEQ/L (98-107) (98-107) Carbon Dioxide Level 26.4 MEQ/L 28.5 MEQ/L (21.0-32.0) (21.0-32.0) Anion Gap 10 MEQ/L (5-15) 7 MEQ/L (5-15) Blood Urea Nitrogen 26 MG/DL (7-18) 26 MG/DL (7-18) Creatinine 0.74 MG/DL 0.70 MG/DL (0.60-1.30) (0.60-1.30) Estimat Glomerular Filtration 139 ML/MIN 148 ML/MIN Rate (>89) (>89) Random Glucose 152 MG/DL 124 MG/DL (74-106) (74-106) Calcium Level 9.6 MG/DL 9.5 MG/DL (8.5-10.1) (8.5-10.1) Differential Total Cells 100 Counted Neutrophils % (Manual) 81 % (16-70) Band Neutrophils % 1 % (0-6) Lymphocytes % 14 % (9-44) Monocytes % 4 % (0-8) Neutrophils # (Manual) 14.1 TH/MM3 (1.8-7.7) Platelet Estimate HIGH (NORMAL) Platelet Morphology Comment NORMAL (NORMAL) Result Diagram: 10/21/1629 10/21/1629 Procedures * 08/19/16 -PEG tube placement * 08/17/16- lumbar puncture * 10/11/16ultrasound guided aspiration, right hip region. . 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 Now bed bound , completely dependent for all ADLs. Receiving artificial nutrition via PEG tube. Flexion contractures in bilateral lower extremities. (2) Encephalopathy Comment: Patient with diagnosis of neuro-behcet. Patient is bed bound, non- verbal. Eyes are open, but do not track. No purposeful movement. Pertinent Non-Medical Issues Psychosocial: Reported as . Unknown if he has any children. Spiritual: No spiritual affiliations. Legal: No living will or advanced directives found in medical records. Patricia Harrell presented as and has been acting as healthcare proxy. Ethical issues impacting care: No living will or advanced directives found in medical records. Patricia Harrell presented as and has been acting as healthcare proxy. . Important Contacts Patricia Mendoza. [phone]. . Prognosis Mr. 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 Patient presented to the ED on 08/13/16 via EMS were reports of decreased oral intake for the prior 2-3 days and skin tear to left upper extremity. He was admitted for sepsis. Patient is at high risk for further complications, continue decline and . His diagnosis of neuro- Behcet's syndrome was done at [facility]. Code Status: Full Code Plan ==FULL CODE-Reaffirms full code. ==Decision-making: Has Capacity to make medical decision at the time of my visit today (10/21/2016). It is clear. Pt's , RN, RISHI were in the room.). Testing for capacity. When pt saw Lucille, pt begins to cry. Pt is alert. He is communicative, using upward gaze to communicate Yes, and Donward gaze to indicate no. He could also When I ask him if his last name is Tao, he looked down to indicate no. When I ask him if his last name is Reji, he indicated yes. When I ask him if Lucille is his sister, he indicate no. When I ask him if Lucille is his , he indicate yes, and becomes tearful. Ask him if the grass is usual color is pink, he indicated no. I reviewed with him about his course of hospitalization, his fluctuating medical condition, his quality of life, and risk factor (such as aspirations, infections which likely he will decline from), and his poor prognosis for functional recovering. When I ask him if he understands, he look upward and indicated yes ( and moans and cry) demonstrating understanding, and understand his condition is end-stage. ==Health Care Surrogage.When I ask if he wants to designate some other person as Health Care Surrogate, He looked downward and indicated no. He even try to be vocal, and said ah ah, and shook his head as much as he can to indicate not. He reaffirm that if he loses capacity, he wants Lucille Harrell, his , as his health care surrogate. He did not comment when I ask if he wants his children to serve. He maintains he wants Lucille to be Health Care Surrogate, not his mother. == Goals of Care. I reviewed with him about his course of hospitalization, his fluctuating medical condition, his quality of life, and risk factor (such as aspirations, infections which likely he will decline from), and his poor prognosis for functional recovering. When I ask him if he understands, he look upward and indicated yes ( and moans and cry) demonstrating understanding, and understand his condition is end-stage. He indicated yes to Intubation and Full Code. Discussed tracheostomy in which he stated yes. He was amenable to completing a living will with Lucille(), APRYL Wahl, RISHI tubbs witnessing. He understands his condition is end stage, but his goals are aggressive. He indicated If he is not responsive, not communicative, and on life support for 1 month time, with no improvement; life support can be removed. I ask him a few times and he look up for yes. Clarified one more time with RN , , 's friend RISHI Crum. Pt indicated to to if he is not responsive as he is now, communicating, if he is just unresponsive, just on life support for 1 month, he would not want to go further than that beyond 1 month time. He understand then Shazia will withdraw life support. He indicate yes, look upward. Immediately again, ask him if his last name is Tao, He look downward to indicate no. This was documented on living will and witnessed by pt's Cruz Harrell, RISHI Carroll, and myself Dr. Chen. * encephalopathy- resolved today, and has been improving the past few days. * Palliative care will continue to follow-up with this patient as needed, but goals of care is firmly established and it remains aggressive. Very extensive family meeting today (10/21/2016). . Time Spent Total Floor Time (mins): 80 Face to Face Time (mins): 60 >50% Counseling/Coord of Care: Yes Attestation To help prompt me to consider important information that might be impacting today's encounter and assessment, information from prior notes written by myself or my colleagues may have been "brought forward" into today's note. My signature on this note, however, is an attestation that I personally performed the exam, history, and/or decision-making noted today, and, unless otherwise indicated, the interactions with patient, family, and staff as well as the review of records all occurred today. I also attest that the listed assessment and stated plan reflect my best clinical judgment today based on the combination of historical information, prior notes, and today's exam/ interactions. When time spent is documented, it refers only to time spent today by the signer, or if indicated, combined time spent today by collaborating physician/nurse practitioner. Sekou Chen MD Oct 21, 2016 12:22
[2016-10-21 12:57] VITALS: BP 108/83; PULSE 107; RESP 20; TEMP 97.4; O2SAT 98
--- NOTE | 2016-10-21 12:59 | HHI.PR ---
Subjective Remarks Patient in bed, looks comfortable with open eyes Plan for palliative care to meet with family today for further advanced directive discussion Tachycardia will increase Lopressor and monitor Objective Vitals Vital Signs Date Time Temp Pulse Resp B/P Pulse Ox O2 Delivery O2 Flow Rate FiO2 10/21/16 08:11 97.3 133 20 121/77 99 10/21/16 06:20 96.0 131 16 128/93 99 10/21/16 01:16 96.9 123 14 145/88 97 10/20/16 20:00 97.8 119 20 103/86 100 10/20/16 17:15 97.2 124 18 108/90 100 I/O 10/20/16 10/20/16 10/20/16 10/21/16 10/21/16 10/21/16 07:00 15:00 23:00 07:00 15:00 23:00 Intake Total 200 ml 2738 ml 400 ml Output Total 300 ml 800 ml 400 ml Balance -300 ml 200 ml 1938 ml -400 ml 400 ml Tube Feeding 200 ml 2738 ml 200 ml Other 200 ml Output Urine Total 300 ml 800 ml 400 ml # Voids 1 # Bowel Movements 1 0 Result Diagram: 10/21/1629 10/21/1629 Objective Remarks GENERAL: This frail chronically ill 46 years old male CARDIOVASCULAR: Regular rate and rhythm without murmurs, gallops, or rubs. RESPIRATORY: Fair entry. No wheezes, rales, or rhonchi. GASTROINTESTINAL: Abdomen soft, non-tender, nondistended. 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 (4) GI bleed ICD Code: K92.2 Status: Resolved (5) HCAP (healthcare-associated pneumonia) ICD Code: J18.9 Status: Resolved (6) UTI (urinary tract infection) ICD Code: N39.0 Status: Resolved (7) Leucocytosis ICD Code: D72.829 Status: Acute (8) Fever ICD Code: R50.9 Status: Acute (9) Effusion of hip joint ICD Code: M25.459 Status: Acute Assessment and Plan 10/16: Third day of pulse steroid dose recommended I neurology to be followed by tapering prednisone and possible azathioprine will defer to neurology 10/17: Not significant improvement, appreciated neurology recommendation, starting tapering prednisone and Azathioprine, increase free water flush to 200- q6 hours, will give half-normal saline 500 cc for sodium 151 10/18: Started on prednisone and Azathioperine, sodium improved from 151-147, monitor BMP in a.m. 10/19: Continue follow up with palliative care trying to reach out for the power of real estate attorney to address of goal of treatment 10/20: Continue current care until addressing goal of treatment with the POA 10/13: Plan for palliative care to meet with the family today for further advanced directive discussion, tachycardia heart rate 1:30 will increase Lopressor and monitor A/P: 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 Encephalopathy H/O meningitis Left frontal CVA Monitor neuro status and avoid sedatives -Neurology ff- started on pulse steroid therapy- 10/13- till 10/16 - seem to show some improvement EEG 10/09- mild- mod encephalopathy -On Prozac 10mg daily Sinus tachycardia ILopressor 50 mg BID for rate control-monitor HR and BP keep MAP>65mmHg --response to sepsis GI bleed-resolved Continue with Protonix 40 -s/p EGD 09/25 no signs of active bleeding -S/p transfusion 3units PRBC overnight on 09/26 monitor H/H. -09/26 CT abdomen/pelvis showed no acute findings -Colonoscopy done on 09/27 with no active bleeding. S/P PEG placement Sepsis Persistent Leukocytosis Right upper lung pneumonia-resolved Sacral decubitus-colonized VRE, pseudomonas S/P hip aspiration by IR 10/11 s/p abx per ID (vancomycin and Zosyn) Pancultured 10/09 CT abdomen/pelvis 09/26: No acute findings Pertinent cultures 09/25 C-diff PCR negative 09/10/16 Wound culture from sacral decubitus: Pseudo-fluoresceins/[place], enterococcus faecalis, enterococcus faecium VRE 08/26/16 urine culture with Daphney parapsilosis ID following Dr. Reyes Blood culture-staph epi(possible contaminant) on 10/05 FF fluid studies from hip aspiration Ortho is following PROPHYLAXIS Prevacid 30mg BID for GI protection SCD for DVT prophylaxis, -Doppler US LE 10/06: No DVT -Doppler US UE 09/28: Occlusive superficial thrombosis in the left cephalic vein near the antecubital fossa. No DVT Problem Qualifiers (1) GI bleed: Qualified Code: K92.2 - Gastrointestinal hemorrhage, unspecified gastrointestinal hemorrhage type (2) UTI (urinary tract infection): Qualified Code: N30.00 - Acute cystitis without hematuria (3) Effusion of hip joint: Qualified Code: M25.459 - Effusion of hip joint, unspecified laterality Whit Aquino MD Oct 21, 2016 12:59
[2016-10-21 16:40] VITALS: BP 127/90; PULSE 104; RESP 20; TEMP 96.7; O2SAT 100
[2016-10-21 20:00] VITALS: BP 120/97; PULSE 100; RESP 20; TEMP 95.9; O2SAT 100
[2016-10-22] VITALS: BP 118/96; PULSE 92; RESP 20; TEMP 95.6; O2SAT 100
[2016-10-22] MEDS: CHLORHEXIDINE GLUCONATE 2 % 1 PACK (2 CLOTHS) TOP SCH (03:02)
[2016-10-22 04:00] VITALS: BP 129/88; PULSE 92; RESP 20; TEMP 97.5; O2SAT 10
[2016-10-22] MEDS: INSULIN NovoLIN REGULAR SUPPLEMENTAL SCALE SQ SCH ×4 (04:53→23:43)
[2016-10-22] MEDS: azaTHIOprine 50 MG TAB PO SCH ×2 (04:53→17:21)
[2016-10-22 08:10] VITALS: BP 133/72; PULSE 102; RESP 19; TEMP 97.3; O2SAT 99
[2016-10-22] MEDS: SODIUM CHLORIDE 0.9% FLUSH 10 ML FLUSH IV FLUSH SCH ×2 (09:00→20:10)
[2016-10-22] MEDS: METOPROLOL TARTRATE 50 MG TAB PO SCH ×2 (09:37→20:10)
[2016-10-22] MEDS: predniSONE 20 MG TAB PO SCH (09:37)
[2016-10-22] MEDS: SENNOSIDES SYRUP 8.8 MG/5 ML CUP PO SCH (09:37)
[2016-10-22] MEDS: LANSOPRAZOLE SOLUTAB 30 MG TAB NG SCH ×2 (09:37→20:10)
[2016-10-22] MEDS: ACETAMINOPHEN/HYDROcodone 325 MG/5 MG TAB PEG PRN (09:37)
[2016-10-22] MEDS: FLUoxetine HCL 10 MG CAP PO SCH (09:38)
[2016-10-22] MEDS: CHLORHEXIDINE GLUCONATE 0.12% OROPHARYNG SCH ×2 (09:38→17:22)
[2016-10-22] MEDS: COLLAGENASE OINT 30 GM TUBE TOP SCH (09:39)
[2016-10-22 12:08] VITALS: BP 124/71; PULSE 97; RESP 19; TEMP 96.2; O2SAT 99
--- NOTE | 2016-10-22 15:03 | HHI.PR ---
Subjective Remarks No change in clinical picture Palliative care following with the family for advanced directive, patient still full code Objective Vitals Vital Signs Date Time Temp Pulse Resp B/P Pulse Ox O2 Delivery O2 Flow Rate FiO2 10/22/16 12:08 96.2 97 19 124/71 99 10/22/16 08:10 97.3 102 19 133/72 99 10/22/16 04:00 97.5 92 20 129/88 10 10/22/16 00:00 95.6 92 20 118/96 100 10/21/16 20:00 95.9 100 20 120/97 100 10/21/16 16:40 96.7 104 20 127/90 100 I/O 10/21/16 10/21/16 10/21/16 10/22/16 10/22/16 10/22/16 07:00 15:00 23:00 07:00 15:00 23:00 Intake Total 400 ml 1004 ml 765 ml 200 ml Output Total 400 ml 400 ml Balance -400 ml 400 ml 1004 ml 365 ml 200 ml Tube Feeding 200 ml 1004 ml 565 ml 200 ml Other 200 ml 200 ml Output Urine Total 400 ml 400 ml # Voids 1 1 # Bowel Movements 0 1 1 Result Diagram: 10/21/1662810/21/16628 Objective Remarks GENERAL: This frail chronically ill 46 years old male CARDIOVASCULAR: Regular rate and rhythm without murmurs, gallops, or rubs. RESPIRATORY: Fair entry. No wheezes, rales, or rhonchi. GASTROINTESTINAL: Abdomen soft, non-tender, nondistended. 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 (4) GI bleed ICD Code: K92.2 Status: Resolved (5) HCAP (healthcare-associated pneumonia) ICD Code: J18.9 Status: Resolved (6) UTI (urinary tract infection) ICD Code: N39.0 Status: Resolved (7) Leucocytosis ICD Code: D72.829 Status: Acute (8) Fever ICD Code: R50.9 Status: Acute (9) Effusion of hip joint ICD Code: M25.459 Status: Acute Assessment and Plan 10/16: Third day of pulse steroid dose recommended I neurology to be followed by tapering prednisone and possible azathioprine will defer to neurology 10/17: Not significant improvement, appreciated neurology recommendation, starting tapering prednisone and Azathioprine, increase free water flush to 200- q6 hours, will give half-normal saline 500 cc for sodium 151 10/18: Started on prednisone and Azathioperine, sodium improved from 151-147, monitor BMP in a.m. 10/19: Continue follow up with palliative care trying to reach out for the power of deputy prosecuting attorney to address of goal of treatment 10/20: Continue current care until addressing goal of treatment with the POA 10/21: Plan for palliative care to meet with the family today for further advanced directive discussion, tachycardia heart rate 1:30 will increase Lopressor and monitor 10/22: Continue current care and following with palliative care and family A/P: 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 Encephalopathy H/O meningitis Left frontal CVA Monitor neuro status and avoid sedatives -Neurology ff- started on pulse steroid therapy- 10/13- till 10/16 - seem to show some improvement EEG 10/09- mild- mod encephalopathy -On Prozac 10mg daily Sinus tachycardia ILopressor 50 mg BID for rate control-monitor HR and BP keep MAP>65mmHg --response to sepsis GI bleed-resolved Continue with Protonix 40 -s/p EGD 09/25 no signs of active bleeding -S/p transfusion 3units PRBC overnight on 09/26 monitor H/H. -09/26 CT abdomen/pelvis showed no acute findings -Colonoscopy done on 09/27 with no active bleeding. S/P PEG placement Sepsis Persistent Leukocytosis Right upper lung pneumonia-resolved Sacral decubitus-colonized VRE, pseudomonas S/P hip aspiration by IR 10/11 s/p abx per ID (vancomycin and Zosyn) Pancultured 10/09 CT abdomen/pelvis 09/26: No acute findings Pertinent cultures 09/25 C-diff PCR negative 09/10/16 Wound culture from sacral decubitus: Pseudo-fluoresceins/[place], enterococcus faecalis, enterococcus faecium VRE 08/26/16 urine culture with Daphney parapsilosis ID following Dr. Reyes Blood culture-staph epi(possible contaminant) on 10/05 FF fluid studies from hip aspiration Ortho is following PROPHYLAXIS Prevacid 30mg BID for GI protection SCD for DVT prophylaxis, -Doppler US LE 10/06: No DVT -Doppler US UE 09/28: Occlusive superficial thrombosis in the left cephalic vein near the antecubital fossa. No DVT Problem Qualifiers (1) GI bleed: Qualified Code: K92.2 - Gastrointestinal hemorrhage, unspecified gastrointestinal hemorrhage type (2) UTI (urinary tract infection): Qualified Code: N30.00 - Acute cystitis without hematuria (3) Effusion of hip joint: Qualified Code: M25.459 - Effusion of hip joint, unspecified laterality Whit Aquino MD Oct 22, 2016 15:03
[2016-10-22 17:04] VITALS: BP 114/72; PULSE 108; RESP 18; TEMP 98.1; O2SAT 97
[2016-10-22 20:00] VITALS: BP 107/74; PULSE 105; RESP 20; TEMP 97.3; O2SAT 96
[2016-10-23] VITALS (7 sets, daily range): BP systolic 111–122; BP diastolic 75–89; PULSE 101–131; RESP 18–22; TEMP 98.2–99.3; O2SAT 94–98
[2016-10-23] MEDS: CHLORHEXIDINE GLUCONATE 2 % 1 PACK (2 CLOTHS) TOP SCH (03:11)
[2016-10-23] MEDS: INSULIN NovoLIN REGULAR SUPPLEMENTAL SCALE SQ SCH ×3 (05:15→17:00)
[2016-10-23] MEDS: azaTHIOprine 50 MG TAB PO SCH ×2 (05:17→17:15)
[2016-10-23] MEDS: CHLORHEXIDINE GLUCONATE 0.12% OROPHARYNG SCH ×3 (09:00→17:20)
[2016-10-23] MEDS: COLLAGENASE OINT 30 GM TUBE TOP SCH (09:00)
[2016-10-23] MEDS: predniSONE 20 MG TAB PO SCH (10:13)
[2016-10-23] MEDS: LANSOPRAZOLE SOLUTAB 30 MG TAB NG SCH ×2 (10:13→20:53)
[2016-10-23] MEDS: METOPROLOL TARTRATE 50 MG TAB PO SCH ×2 (10:15→20:53)
[2016-10-23] MEDS: FLUoxetine HCL 10 MG CAP PO SCH (10:15)
[2016-10-23] MEDS: SODIUM CHLORIDE 0.9% FLUSH 10 ML FLUSH IV FLUSH SCH ×2 (10:16→20:53)
[2016-10-23] MEDS: SENNOSIDES SYRUP 8.8 MG/5 ML CUP PO SCH (10:16)
--- NOTE | 2016-10-23 15:08 | HHI.PR ---
Subjective Remarks In bed, afebrile, closed eyes Objective Vitals Vital Signs Date Time Temp Pulse Resp B/P Pulse Ox O2 Delivery O2 Flow Rate FiO2 10/23/16 12:08 98.4 101 20 122/82 96 10/23/16 10:45 94 21 10/23/16 08:11 98.3 131 19 120/84 98 10/23/16 04:43 99.3 120 20 111/89 96 10/23/16 00:16 98.3 114 20 112/82 98 10/22/16 20:00 97.3 105 20 107/74 96 10/22/16 17:04 98.1 108 18 114/72 97 I/O 10/22/16 10/22/16 10/22/16 10/23/16 10/23/16 10/23/16 07:00 15:00 23:00 07:00 15:00 23:00 Intake Total 765 ml 953 ml 863 ml Output Total 400 ml 200 ml 200 ml Balance 365 ml 953 ml 863 ml -200 ml -200 ml Tube Feeding 565 ml 953 ml 663 ml Other 200 ml 200 ml Output Urine Total 400 ml 200 ml 200 ml # Voids 2 # Bowel Movements 0 Result Diagram: 10/21/1662810/21/16628 Objective Remarks GENERAL: This frail chronically ill 46 years old male CARDIOVASCULAR: Regular rate and rhythm without murmurs, gallops, or rubs. RESPIRATORY: Fair entry. No wheezes, rales, or rhonchi. GASTROINTESTINAL: Abdomen soft, non-tender, nondistended. 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 (4) GI bleed ICD Code: K92.2 Status: Resolved (5) HCAP (healthcare-associated pneumonia) ICD Code: J18.9 Status: Resolved (6) UTI (urinary tract infection) ICD Code: N39.0 Status: Resolved (7) Leucocytosis ICD Code: D72.829 Status: Acute (8) Fever ICD Code: R50.9 Status: Acute (9) Effusion of hip joint ICD Code: M25.459 Status: Acute Assessment and Plan 10/16: Third day of pulse steroid dose recommended I neurology to be followed by tapering prednisone and possible azathioprine will defer to neurology 10/17: Not significant improvement, appreciated neurology recommendation, starting tapering prednisone and Azathioprine, increase free water flush to 200- q6 hours, will give half-normal saline 500 cc for sodium 151 10/18: Started on prednisone and Azathioperine, sodium improved from 151-147, monitor BMP in a.m. 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 -09/26 CT abdomen/pelvis showed no acute findings -Colonoscopy done on 09/27 with no active bleeding. S/P PEG placement Sepsis Persistent Leukocytosis Right upper lung pneumonia-resolved Sacral decubitus-colonized VRE, pseudomonas S/P hip aspiration by IR 10/11 s/p abx per ID (vancomycin and Zosyn) Pancultured 10/09 CT abdomen/pelvis 09/26: No acute findings Pertinent cultures 09/25 C-diff PCR negative 09/10/16 Wound culture from sacral decubitus: Pseudo-fluoresceins/[place], enterococcus faecalis, enterococcus faecium VRE 08/26/16 urine culture with Daphney parapsilosis ID following Dr. Reyes Blood culture-staph epi(possible contaminant) on 10/05 FF fluid studies from hip aspiration Ortho is following PROPHYLAXIS Prevacid 30mg BID for GI protection SCD for DVT prophylaxis, -Doppler US LE 10/06: No DVT -Doppler US UE 09/28: Occlusive superficial thrombosis in the left cephalic vein near the antecubital fossa. No DVT Problem Qualifiers (1) GI bleed: Qualified Code: K92.2 - Gastrointestinal hemorrhage, unspecified gastrointestinal hemorrhage type (2) UTI (urinary tract infection): Qualified Code: N30.00 - Acute cystitis without hematuria (3) Effusion of hip joint: Qualified Code: M25.459 - Effusion of hip joint, unspecified laterality Whit Aquino MD Oct 23, 2016 15:08
[2016-10-24] VITALS (7 sets, daily range): BP systolic 94–127; BP diastolic 63–86; PULSE 91–120; RESP 20; TEMP 97–98.5; O2SAT 96–98
[2016-10-24] MEDS: CHLORHEXIDINE GLUCONATE 2 % 1 PACK (2 CLOTHS) TOP SCH (03:01)
[2016-10-24] MEDS: azaTHIOprine 50 MG TAB PO SCH ×2 (05:02→17:04)
[2016-10-24] MEDS: INSULIN NovoLIN REGULAR SUPPLEMENTAL SCALE SQ SCH ×5 (05:03→23:00)
[2016-10-24] MEDS: FLUoxetine HCL 10 MG CAP PO SCH (08:44)
[2016-10-24] MEDS: METOPROLOL TARTRATE 50 MG TAB PO SCH ×2 (08:44→23:27)
[2016-10-24] MEDS: predniSONE 20 MG TAB PO SCH (08:44)
[2016-10-24] MEDS: LANSOPRAZOLE SOLUTAB 30 MG TAB NG SCH ×2 (08:44→23:28)
[2016-10-24] MEDS: SENNOSIDES SYRUP 8.8 MG/5 ML CUP PO SCH (08:44)
[2016-10-24] MEDS: CHLORHEXIDINE GLUCONATE 0.12% OROPHARYNG SCH ×2 (08:45→17:05)
[2016-10-24] MEDS: SODIUM CHLORIDE 0.9% FLUSH 10 ML FLUSH IV FLUSH SCH ×2 (08:46→21:00)
[2016-10-24] MEDS: COLLAGENASE OINT 30 GM TUBE TOP SCH (08:46)
--- NOTE | 2016-10-24 09:59 | HHI.PR ---
Review/Management Daily Summary 08/18 discussed with RN, stable overall data seen, lp abnormal csf meningites/encephalitis? 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 will also defer to Dr. Jessica next week d/w medical yesterday i.d. following 10/14 seen back in July as above exam remains markedly impaired as before he is not as responsive as before today he follows commands by clearly griping with his left hand on request spastic quadruparesis right more than left not nodding as he did before, not attempting to verbalize suggest pulse steroids for 3 days followed by po steroids taper and also consider azathioprine 100 mg intermediate manager supportive care otherwise 10/16 little more responsive with pulse steroids if medical team agrees we could do a taper steroids starting tomorrow , for 2 weks, start 40 mg prednisone or comprobable iv decadron/solumedrol also start azathioprine 50 mg bid po/peg, monitor lft's and cbc monthly 10/17 eyes open but not following any commands, some upper airway congestion plans as before prognosis bleak, doubt of much neuro improvement 10/19 basically unchanged he clearly follows commands today by looking up and down on every occasion very minimal if any gaze preservation laterally minimal head movement 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 neuro Behcet syndrome on prednisone taper and azathioprine supportive care, would suggest comfort care, very poor neuro prognosis 10/24 spoke with other physician in his care last week discussed prognosis and extensiveness of care chart notes seen palliative care reviewed correction care needed monitor at least once a month lft's, renal and cbc with imuran tx Subjective Subjective Comments No acute events reported Active Medications Current Medications Medications (Trade) Dose Ordered Sig/Beau Route Start Time Stop Time Status Last Admin (Tylenol) 650 mg Q4H PRN PO 08/13/16 14:00 10/10/16 20:56 (Tylenol Supp) 650 mg Q6H PRN RECTAL 08/15/16 16:30 09/06/16 20:06 (PROzac) 10 mg DAILY PO 08/24/16 09:00 10/24/16 08:44 (Lovenox Inj) 40 mg Q24H SQ 09/02/16 09:00 Hold 09/25/16 08:30 (Zofran Liq) 4 mg Q6H PRN PEG 09/11/16 16:00 (Miralax) 17 gm DAILY PRN PEG 09/11/16 16:00 (Santyl Oint) 1 applic DAILY TOP 09/14/16 16:00 10/24/16 08:46 (D50w (Vial) Inj) 25 ml UNSCH PRN IV PUSH 09/25/16 16:15 (Glucagon Inj) 1 mg UNSCH PRN OTHER 09/25/16 16:15 (NovoLIN R SUPPLEMENTAL SCALE) 1 Q6H SQ 09/25/16 17:00 10/23/16 17:00 (Pill Splitter) 1 ea UNSCH PRN OTHER 09/26/16 09:00 (Prevacid Odt) 30 mg BID NG 09/30/16 10:15 10/24/16 08:44 ([place] 5-325 Mg) 1 tab Q4H PRN PEG 10/02/16 13:00 10/22/16 09:37 (Motrin Liq) 200 mg Q6H PRN PEG 10/07/16 01:00 10/19/16 23:27 (NS Flush) 2 ml UNSCH PRN IV FLUSH 10/09/16 10:00 10/13/16 12:27 (NS Flush) 2 ml BID IV FLUSH 10/09/16 21:00 10/24/16 08:46 Miscellaneous Information 1 Q361D XX 10/09/16 10:00 (Chlorhexidine 2% Cloth) Taper DAILY@04 TOP 10/10/16 04:00 10/06/17 03:59 10/16/16 04:00 (Chlorhexidine 2% Cloth) 3 pack UNSCH PRN TOP 10/09/16 10:00 (Senna Liq) 8.8 mg DAILY PO 10/10/16 09:00 10/24/16 08:44 Non-Formulary Medication CHLORHEXIDINE GLUCONATE 0.12% 30... BIDPC OROPHARYNG 10/17/16 20:00 10/24/16 08:45 (Deltasone) 40 mg DAILY PO 10/17/16 18:30 10/24/16 08:44 (Imuran) 50 mg BID@06,18 PO 10/18/16 06:00 10/24/16 05:02 (Lopressor) 100 mg Q12HR PO 10/21/16 21:00 10/23/16 20:53 Allergies Allergies Coded Allergies *MDRO Multi-Drug Resistant Organism (Verified Adverse Reaction, Unknown, ) Uncoded Allergies ADHESIVE TAPE ( Allergy, Severe, 09/21/16) Review of Systems All other ROS: ROS reviewed as documented in chart Exam I&O / VS 10/23/16 10/23/16 10/24/16 15:00 23:00 07:00 Intake Total 921 ml 726 ml Output Total 200 ml 400 ml 450 ml Balance -200 ml 521 ml 276 ml Tube Feeding 721 ml 526 ml Other 200 ml 200 ml Output Urine Total 200 ml 400 ml 400 ml Stool Total 50 ml # Bowel Movements 50 Vital Signs Date Time Temp Pulse Resp B/P Pulse Ox O2 Delivery O2 Flow Rate FiO2 10/24/16 08:00 98.1 110 20 94/72 98 10/24/16 04:00 97.0 96 20 112/81 96 10/24/16 00:00 98.3 91 20 127/86 98 10/23/16 20:00 98.4 106 22 114/75 96 10/23/16 16:22 98.2 104 18 115/84 98 10/23/16 12:08 98.4 101 20 122/82 96 10/23/16 10:45 94 21 Wolfgang Jessica MD October 24, 2016 09:59
--- NOTE | 2016-10-24 15:39 | HHI.PR ---
Subjective Remarks No change in clinical picture Patient still full code per family Continuing Imuran and prednisone per neurology monitor at least once a month lft's, renal and cbc with imuran tx Objective Vitals Vital Signs Date Time Temp Pulse Resp B/P Pulse Ox O2 Delivery O2 Flow Rate FiO2 10/24/16 12:00 98.5 118 20 96/63 96 10/24/16 08:00 98.1 110 20 94/72 98 10/24/16 04:00 97.0 96 20 112/81 96 10/24/16 00:00 98.3 91 20 127/86 98 10/23/16 20:00 98.4 106 22 114/75 96 10/23/16 16:22 98.2 104 18 115/84 98 I/O 10/23/16 10/23/16 10/23/16 10/24/16 10/24/16 10/24/16 07:00 15:00 23:00 07:00 15:00 23:00 Intake Total 921 ml 726 ml 200 ml Output Total 200 ml 200 ml 400 ml 450 ml Balance -200 ml -200 ml 521 ml 276 ml 200 ml Tube Feeding 721 ml 526 ml 200 ml Other 200 ml 200 ml Output Urine Total 200 ml 200 ml 400 ml 400 ml Stool Total 50 ml # Bowel Movements 50 Result Diagram: 10/21/1662810/21/16628 Objective Remarks GENERAL: This frail chronically ill 46 years old male CARDIOVASCULAR: Regular rate and rhythm without murmurs, gallops, or rubs. RESPIRATORY: Fair entry. No wheezes, rales, or rhonchi. GASTROINTESTINAL: Abdomen soft, non-tender, nondistended. 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 (4) GI bleed ICD Code: K92.2 Status: Resolved (5) HCAP (healthcare-associated pneumonia) ICD Code: J18.9 Status: Resolved (6) UTI (urinary tract infection) ICD Code: N39.0 Status: Resolved (7) Leucocytosis ICD Code: D72.829 Status: Acute (8) Fever ICD Code: R50.9 Status: Acute (9) Effusion of hip joint ICD Code: M25.459 Status: Acute Assessment and Plan 10/16: Third day of pulse steroid dose recommended I neurology to be followed by tapering prednisone and possible azathioprine will defer to neurology 10/17: Not significant improvement, appreciated neurology recommendation, starting tapering prednisone and Azathioprine, increase free water flush to 200- q6 hours, will give half-normal saline 500 cc for sodium 151 10/18: Started on prednisone and Azathioperine, sodium improved from 151-147, monitor BMP in a.m. 10/19: Continue follow up with palliative care trying to reach out for the power of deputy county attorney to address of goal of treatment 10/20: Continue current care until addressing goal of treatment with the POA 10/21: Plan for palliative care to meet with the family today for further advanced directive discussion, tachycardia heart rate 1:30 will increase Lopressor and monitor 10/22: Continue current care and following with palliative care and family 10/23: No change in care, following with palliative care and family possible change in advanced directive 10/24: Still full code per family, continue on Imuran and prednisone per neurology ,monitor at least once a month lft's, renal and cbc with imuran tx A/P: 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 -09/26 CT abdomen/pelvis showed no acute findings -Colonoscopy done on 09/27 with no active bleeding. S/P PEG placement Sepsis Persistent Leukocytosis Right upper lung pneumonia-resolved Sacral decubitus-colonized VRE, pseudomonas S/P hip aspiration by IR 10/11 s/p abx per ID (vancomycin and Zosyn) Pancultured 10/09 CT abdomen/pelvis 09/26: No acute findings Pertinent cultures 09/25 C-diff PCR negative 09/10/16 Wound culture from sacral decubitus: Pseudo-fluoresceins/[place], enterococcus faecalis, enterococcus faecium VRE 08/26/16 urine culture with Daphney parapsilosis ID following Dr. Reyes Blood culture-staph epi(possible contaminant) on 10/05 FF fluid studies from hip aspiration Ortho is following PROPHYLAXIS Prevacid 30mg BID for GI protection SCD for DVT prophylaxis, -Doppler US LE 10/06: No DVT -Doppler US UE 09/28: Occlusive superficial thrombosis in the left cephalic vein near the antecubital fossa. No DVT Problem Qualifiers (1) GI bleed: Qualified Code: K92.2 - Gastrointestinal hemorrhage, unspecified gastrointestinal hemorrhage type (2) UTI (urinary tract infection): Qualified Code: N30.00 - Acute cystitis without hematuria (3) Effusion of hip joint: Qualified Code: M25.459 - Effusion of hip joint, unspecified laterality Whit Aquino MD October 24, 2016 15:39
[2016-10-25] MEDS: CHLORHEXIDINE GLUCONATE 2 % 1 PACK (2 CLOTHS) TOP SCH (04:00)
[2016-10-25 05:00] VITALS: BP 112/76; PULSE 110; RESP 21; TEMP 97.3; O2SAT 98
[2016-10-25] MEDS: INSULIN NovoLIN REGULAR SUPPLEMENTAL SCALE SQ SCH ×4 (05:00→23:00)
[2016-10-25] MEDS: azaTHIOprine 50 MG TAB PO SCH ×2 (06:01→18:21)
[2016-10-25 08:00] VITALS: BP 107/74; PULSE 106; RESP 21; TEMP 97.7; O2SAT 100
[2016-10-25] MEDS: METOPROLOL TARTRATE 50 MG TAB PO SCH ×2 (09:04→20:45)
[2016-10-25] MEDS: FLUoxetine HCL 10 MG CAP PO SCH (09:04)
[2016-10-25] MEDS: LANSOPRAZOLE SOLUTAB 30 MG TAB NG SCH ×2 (09:04→20:45)
[2016-10-25] MEDS: predniSONE 20 MG TAB PO SCH (09:04)
[2016-10-25] MEDS: SENNOSIDES SYRUP 8.8 MG/5 ML CUP PO SCH (09:10)
[2016-10-25 12:00] VITALS: BP 113/75; PULSE 94; RESP 20; TEMP 97.7; O2SAT 98
[2016-10-25] MEDS: COLLAGENASE OINT 30 GM TUBE TOP SCH (13:10)
[2016-10-25] MEDS: SODIUM CHLORIDE 0.9% FLUSH 10 ML FLUSH IV FLUSH SCH ×2 (13:44→21:00)
--- NOTE | 2016-10-25 15:11 | HHI.PR ---
Subjective Remarks Laying in bed open eyes nonverbal no acute issue, difficulty placement Objective Vitals Vital Signs Date Time Temp Pulse Resp B/P Pulse Ox O2 Delivery O2 Flow Rate FiO2 10/25/16 12:00 97.7 94 20 113/75 98 10/25/16 08:00 97.7 106 21 107/74 100 10/25/16 05:00 97.3 110 21 112/76 98 10/24/16 21:00 97 21 10/24/16 20:50 98.1 120 20 110/80 98 10/24/16 16:00 98.1 118 20 119/77 98 I/O 10/24/16 10/24/16 10/24/16 10/25/16 10/25/16 10/25/16 07:00 15:00 23:00 07:00 15:00 23:00 Intake Total 726 ml 200 ml 200 ml 0 ml Output Total 450 ml 925 ml 500 ml 800 ml 700 ml Balance 276 ml -725 ml -300 ml -800 ml -700 ml Intake Oral 0 ml 0 ml Tube Feeding 526 ml 200 ml 200 ml Other 200 ml Output Urine Total 400 ml 400 ml 500 ml 600 ml 700 ml Stool Total 50 ml 525 ml 200 ml # Bowel Movements 0 Result Diagram: 10/21/1662810/21/16628 Objective Remarks GENERAL: This frail chronically ill 46 years old male CARDIOVASCULAR: Regular rate and rhythm without murmurs, gallops, or rubs. RESPIRATORY: Fair entry. No wheezes, rales, or rhonchi. GASTROINTESTINAL: Abdomen soft, non-tender, nondistended. 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 (4) GI bleed ICD Code: K92.2 Status: Resolved (5) HCAP (healthcare-associated pneumonia) ICD Code: J18.9 Status: Resolved (6) UTI (urinary tract infection) ICD Code: N39.0 Status: Resolved (7) Leucocytosis ICD Code: D72.829 Status: Acute (8) Fever ICD Code: R50.9 Status: Acute (9) Effusion of hip joint ICD Code: M25.459 Status: Acute Assessment and Plan 10/16: Third day of pulse steroid dose recommended I neurology to be followed by tapering prednisone and possible azathioprine will defer to neurology 10/17: Not significant improvement, appreciated neurology recommendation, starting tapering prednisone and Azathioprine, increase free water flush to 200- q6 hours, will give half-normal saline 500 cc for sodium 151 10/18: Started on prednisone and Azathioperine, sodium improved from 151-147, monitor BMP in a.m. 10/19: Continue follow up with palliative care trying to reach out for the power of deputy commonwealth's attorney to address of goal of treatment 10/20: Continue current care until addressing goal of treatment with the POA 10/21: Plan for palliative care to meet with the family today for further advanced directive discussion, tachycardia heart rate 1:30 will increase Lopressor and monitor 10/22: Continue current care and following with palliative care and family 10/23: No change in care, following with palliative care and family possible change in advanced directive 10/24: Still full code per family, continue on Imuran and prednisone per neurology ,monitor at least once a month lft's, renal and cbc with imuran tx 10/25: No change in clinical picture or CODE STATUS, continue current care A/P: 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 -09/26 CT abdomen/pelvis showed no acute findings -Colonoscopy done on 09/27 with no active bleeding. S/P PEG placement Sepsis Persistent Leukocytosis Right upper lung pneumonia-resolved Sacral decubitus-colonized VRE, pseudomonas S/P hip aspiration by IR 10/11 s/p abx per ID (vancomycin and Zosyn) Pancultured 10/09 CT abdomen/pelvis 09/26: No acute findings Pertinent cultures 09/25 C-diff PCR negative 09/10/16 Wound culture from sacral decubitus: Pseudo-fluoresceins/[place], enterococcus faecalis, enterococcus faecium VRE 08/26/16 urine culture with Daphney parapsilosis ID following Dr. Reyes Blood culture-staph epi(possible contaminant) on 10/05 FF fluid studies from hip aspiration Ortho is following PROPHYLAXIS Prevacid 30mg BID for GI protection SCD for DVT prophylaxis, -Doppler US LE 10/06: No DVT -Doppler US UE 09/28: Occlusive superficial thrombosis in the left cephalic vein near the antecubital fossa. No DVT Problem Qualifiers (1) GI bleed: Qualified Code: K92.2 - Gastrointestinal hemorrhage, unspecified gastrointestinal hemorrhage type (2) UTI (urinary tract infection): Qualified Code: N30.00 - Acute cystitis without hematuria (3) Effusion of hip joint: Qualified Code: M25.459 - Effusion of hip joint, unspecified laterality Whit Aquino MD October 25, 2016 15:11
[2016-10-25 16:00] VITALS: BP 118/79; PULSE 100; RESP 20; TEMP 97.4; O2SAT 99
[2016-10-25 20:00] VITALS: BP 118/79; PULSE 98; RESP 20; TEMP 97.4; O2SAT 100
[2016-10-26] VITALS (7 sets, daily range): BP systolic 99–117; BP diastolic 69–87; PULSE 85–122; RESP 18–20; TEMP 96.8–97.5; O2SAT 98–100
[2016-10-26] MEDS: CHLORHEXIDINE GLUCONATE 2 % 1 PACK (2 CLOTHS) TOP SCH (03:56)
[2016-10-26] MEDS: azaTHIOprine 50 MG TAB PO SCH ×2 (03:56→17:36)
[2016-10-26] MEDS: INSULIN NovoLIN REGULAR SUPPLEMENTAL SCALE SQ SCH ×4 (04:26→23:00)
[2016-10-26] MEDS: SENNOSIDES SYRUP 8.8 MG/5 ML CUP PO SCH (08:05)
[2016-10-26] MEDS: predniSONE 20 MG TAB PO SCH (08:05)
[2016-10-26] MEDS: ACETAMINOPHEN/HYDROcodone 325 MG/5 MG TAB PEG PRN (08:06)
[2016-10-26] MEDS: LANSOPRAZOLE SOLUTAB 30 MG TAB NG SCH ×2 (08:06→21:59)
[2016-10-26] MEDS: FLUoxetine HCL 10 MG CAP PO SCH (08:06)
[2016-10-26] MEDS: METOPROLOL TARTRATE 50 MG TAB PO SCH ×2 (08:07→22:00)
[2016-10-26] MEDS: SODIUM CHLORIDE 0.9% FLUSH 10 ML FLUSH IV FLUSH SCH ×2 (08:08→22:00)
[2016-10-26] MEDS: CHLORHEXIDINE GLUCONATE 0.12% OROPHARYNG SCH ×3 (08:08→17:36)
[2016-10-26] MEDS: COLLAGENASE OINT 30 GM TUBE TOP SCH (08:09)
--- NOTE | 2016-10-26 12:55 | HHI.PR ---
Subjective Remarks Stable in bed closed eyes, afebrile no acute issue discussed with the nurse Objective Vitals Vital Signs Date Time Temp Pulse Resp B/P Pulse Ox O2 Delivery O2 Flow Rate FiO2 10/26/16 12:28 97.5 116 20 108/83 98 10/26/16 09:26 107/72 10/26/16 08:32 97.3 113 20 99/87 99 10/26/16 04:29 96.8 96 20 107/69 99 10/26/16 00:00 96.8 85 20 112/78 99 10/25/16 20:00 97.4 98 20 118/79 100 10/25/16 16:00 97.4 100 20 118/79 99 I/O 10/25/16 10/25/16 10/25/16 10/26/16 10/26/16 10/26/16 07:00 15:00 23:00 07:00 15:00 23:00 Intake Total 0 ml 0 ml 0 ml 1272 ml Output Total 800 ml 700 ml 275 ml 200 ml Balance -800 ml -700 ml -275 ml -200 ml 1272 ml Intake Oral 0 ml 0 ml 0 ml Tube Feeding 1272 ml Output Urine Total 600 ml 700 ml 275 ml 200 ml Stool Total 200 ml Objective Remarks GENERAL: This frail chronically ill 46 years old male CARDIOVASCULAR: Regular rate and rhythm without murmurs, gallops, or rubs. RESPIRATORY: Fair entry. No wheezes, rales, or rhonchi. GASTROINTESTINAL: Abdomen soft, non-tender, nondistended. 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 (4) GI bleed ICD Code: K92.2 Status: Resolved (5) HCAP (healthcare-associated pneumonia) ICD Code: J18.9 Status: Resolved (6) UTI (urinary tract infection) ICD Code: N39.0 Status: Resolved (7) Leucocytosis ICD Code: D72.829 Status: Acute (8) Fever ICD Code: R50.9 Status: Acute (9) Effusion of hip joint ICD Code: M25.459 Status: Acute Assessment and Plan 10/16: Third day of pulse steroid dose recommended I neurology to be followed by tapering prednisone and possible azathioprine will defer to neurology 10/17: Not significant improvement, appreciated neurology recommendation, starting tapering prednisone and Azathioprine, increase free water flush to 200- q6 hours, will give half-normal saline 500 cc for sodium 151 10/18: Started on prednisone and Azathioperine, sodium improved from 151-147, monitor BMP in a.m. 10/19: Continue follow up with palliative care trying to reach out for the power of chief learning officer to address of goal of treatment 10/20: Continue current care until addressing goal of treatment with the POA 10/21: Plan for palliative care to meet with the family today for further advanced directive discussion, tachycardia heart rate 1:30 will increase Lopressor and monitor 10/22: Continue current care and following with palliative care and family 10/23: No change in care, following with palliative care and family possible change in advanced directive 10/24: Still full code per family, continue on Imuran and prednisone per neurology ,monitor at least once a month lft's, renal and cbc with imuran tx 10/25: No change in clinical picture or CODE STATUS, continue current care 10/26: No acute issue continue current care A/P: 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 -09/26 CT abdomen/pelvis showed no acute findings -Colonoscopy done on 09/27 with no active bleeding. S/P PEG placement Sepsis Persistent Leukocytosis Right upper lung pneumonia-resolved Sacral decubitus-colonized VRE, pseudomonas S/P hip aspiration by IR 10/11 s/p abx per ID (vancomycin and Zosyn) Pancultured 10/09 CT abdomen/pelvis 09/26: No acute findings Pertinent cultures 09/25 C-diff PCR negative 09/10/16 Wound culture from sacral decubitus: Pseudo-fluoresceins/[place], enterococcus faecalis, enterococcus faecium VRE 08/26/16 urine culture with Daphney parapsilosis ID following Dr. Reyes Blood culture-staph epi(possible contaminant) on 10/05 FF fluid studies from hip aspiration Ortho is following PROPHYLAXIS Prevacid 30mg BID for GI protection SCD for DVT prophylaxis, -Doppler US LE 10/06: No DVT -Doppler US UE 09/28: Occlusive superficial thrombosis in the left cephalic vein near the antecubital fossa. No DVT Problem Qualifiers (1) GI bleed: Qualified Code: K92.2 - Gastrointestinal hemorrhage, unspecified gastrointestinal hemorrhage type (2) UTI (urinary tract infection): Qualified Code: N30.00 - Acute cystitis without hematuria (3) Effusion of hip joint: Qualified Code: M25.459 - Effusion of hip joint, unspecified laterality Whit Aquino MD October 26, 2016 12:55
[2016-10-27] VITALS: BP 113/79; PULSE 108; RESP 16; TEMP 98.9; O2SAT 99
[2016-10-27 04:00] VITALS: BP 112/77; PULSE 92; RESP 17; TEMP 97.4; O2SAT 99
[2016-10-27] MEDS: CHLORHEXIDINE GLUCONATE 2 % 1 PACK (2 CLOTHS) TOP SCH (04:00)
[2016-10-27] MEDS: INSULIN NovoLIN REGULAR SUPPLEMENTAL SCALE SQ SCH ×4 (05:00→23:00)
[2016-10-27] MEDS: azaTHIOprine 50 MG TAB PO SCH ×2 (06:55→17:38)
[2016-10-27] MEDS: LANSOPRAZOLE SOLUTAB 30 MG TAB NG SCH ×2 (08:47→21:08)
[2016-10-27] MEDS: FLUoxetine HCL 10 MG CAP PO SCH (08:47)
[2016-10-27] MEDS: METOPROLOL TARTRATE 50 MG TAB PO SCH ×2 (08:47→21:00)
[2016-10-27] MEDS: predniSONE 20 MG TAB PO SCH (08:47)
[2016-10-27] MEDS: SENNOSIDES SYRUP 8.8 MG/5 ML CUP PO SCH (08:47)
[2016-10-27] MEDS: SODIUM CHLORIDE 0.9% FLUSH 10 ML FLUSH IV FLUSH SCH ×2 (08:47→21:08)
[2016-10-27] MEDS: CHLORHEXIDINE GLUCONATE 0.12% OROPHARYNG SCH ×2 (08:48→17:39)
[2016-10-27] MEDS: COLLAGENASE OINT 30 GM TUBE TOP SCH (08:48)
[2016-10-27 09:11] VITALS: BP 107/75; PULSE 90; RESP 18; TEMP 96.8; O2SAT 99
--- NOTE | 2016-10-27 10:20 | HHI.PR ---
Subjective Remarks This is a follow up on lengthy stay of unfortunate 46 male Afro-Italian with history of encephalopathy sepsis neurologic type Behcet syndrome, GI bleed, HCAP ,. No significant improvement neurology was consulted patient started on prednisone tapering and Azathioperine but no significant improvement, palliative care following to address goal of treatment with the family who still want aggressive treatment in full code. Patient today laying in bed open eyes no acute issue Objective Vitals Vital Signs Date Time Temp Pulse Resp B/P Pulse Ox O2 Delivery O2 Flow Rate FiO2 10/27/16 09:11 96.8 90 18 107/75 99 10/27/16 04:00 97.4 92 17 112/77 99 10/27/16 00:00 98.9 108 16 113/79 99 10/26/16 21:15 97.2 121 18 117/84 100 10/26/16 16:00 97.5 122 20 115/76 98 10/26/16 12:28 97.5 116 20 108/83 98 I/O 10/26/16 10/26/16 10/26/16 10/27/16 10/27/16 10/27/16 07:00 15:00 23:00 07:00 15:00 23:00 Intake Total 0 ml 2472 ml 200 ml 1320 ml Output Total 200 ml 500 ml 350 ml Balance -200 ml 1972 ml 200 ml 970 ml Intake Oral 0 ml Tube Feeding 2472 ml 200 ml 720 ml Tube Irrigant 600 ml Output Urine Total 200 ml 500 ml 350 ml Objective Remarks GENERAL: This frail chronically ill 46 years old male CARDIOVASCULAR: Regular rate and rhythm without murmurs, gallops, or rubs. RESPIRATORY: Fair entry. No wheezes, rales, or rhonchi. GASTROINTESTINAL: Abdomen soft, non-tender, nondistended. 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 (4) GI bleed ICD Code: K92.2 Status: Resolved (5) HCAP (healthcare-associated pneumonia) ICD Code: J18.9 Status: Resolved (6) UTI (urinary tract infection) ICD Code: N39.0 Status: Resolved (7) Leucocytosis ICD Code: D72.829 Status: Acute (8) Fever ICD Code: R50.9 Status: Acute (9) Effusion of hip joint ICD Code: M25.459 Status: Acute Assessment and Plan A/P: 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 -09/26 CT abdomen/pelvis showed no acute findings -Colonoscopy done on 09/27 with no active bleeding. S/P PEG placement Sepsis Persistent Leukocytosis Right upper lung pneumonia-resolved Sacral decubitus-colonized VRE, pseudomonas S/P hip aspiration by IR 10/11 s/p abx per ID (vancomycin and Zosyn) Pancultured 10/09 CT abdomen/pelvis 09/26: No acute findings Pertinent cultures 09/25 C-diff PCR negative 09/10/16 Wound culture from sacral decubitus: Pseudo-fluoresceins/[place], enterococcus faecalis, enterococcus faecium VRE 08/26/16 urine culture with Daphney parapsilosis ID following Dr. Reyes Blood culture-staph epi(possible contaminant) on 10/05 FF fluid studies from hip aspiration Ortho is following PROPHYLAXIS Prevacid 30mg BID for GI protection SCD for DVT prophylaxis, -Doppler US LE 10/06: No DVT -Doppler US UE 09/28: Occlusive superficial thrombosis in the left cephalic vein near the antecubital fossa. No DVT Problem Qualifiers (1) GI bleed: Qualified Code: K92.2 - Gastrointestinal hemorrhage, unspecified gastrointestinal hemorrhage type (2) UTI (urinary tract infection): Qualified Code: N30.00 - Acute cystitis without hematuria (3) Effusion of hip joint: Qualified Code: M25.459 - Effusion of hip joint, unspecified laterality Whit Aquino MD October 27, 2016 10:20 gastrointestinal hemorrhage type (2) UTI (urinary tract infection): Qualified Code: N30.00 - Acute cystitis without hematuria (3) Effusion of hip joint: Qualified Code: M25.459 - Effusion of hip joint, unspecified laterality Whit Aquino MD October 27, 2016 10:20
[2016-10-27 12:41] LABS: BASOPHIL % 0.1 % (0.0-2.0); EOSINOPHIL % 0.2 % (0.0-4.0); HEMATOCRIT 34.9 % (39.0-51.0); LYMPH % 4.3 % (9.0-44.0); LYMPHOCYTE # 0.8 TH/MM3 (1.0-4.8); MEAN CELL VOLUME 88.9 FL (80.0-100.0); MEAN CORPUSCULAR HEMOGLOBIN 28.1 PG (27.0-34.0); MEAN CORPUSCULAR HGB CONC 31.6 % (32.0-36.0); MONO % 1.3 % (0.0-8.0); MONOCYTE # 0.2 TH/MM3 (0-0.9); NEUT % 94.1 % (16.0-70.0); PLATELET COUNT 434 TH/MM3 (150-450); RED BLOOD COUNT 3.93 MIL/MM3 (4.50-5.90); RED CELL DISTRIBUTION WIDTH 18.9 % (11.6-17.2); WHITE BLOOD COUNT 18.1 TH/MM3 (4.0-11.0)
[2016-10-27 13:13] VITALS: BP 122/76; PULSE 93; RESP 18; TEMP 97.2; O2SAT 100
[2016-10-27 17:07] VITALS: BP 118/87; PULSE 94; RESP 18; TEMP 97.6; O2SAT 99
[2016-10-27 20:24] VITALS: BP 94/80; PULSE 99; RESP 20; TEMP 97.6; O2SAT 100
[2016-10-28 00:24] VITALS: BP 111/74; PULSE 111; RESP 16; TEMP 97.7; O2SAT 100
[2016-10-28 04:00] VITALS: BP 98/71; PULSE 107; RESP 18; TEMP 96.6; O2SAT 100
[2016-10-28] MEDS: CHLORHEXIDINE GLUCONATE 2 % 1 PACK (2 CLOTHS) TOP SCH (04:00)
[2016-10-28] MEDS: INSULIN NovoLIN REGULAR SUPPLEMENTAL SCALE SQ SCH ×4 (05:00→22:51)
[2016-10-28] MEDS: azaTHIOprine 50 MG TAB PO SCH ×2 (05:42→17:31)
[2016-10-28 08:00] VITALS: BP 114/73; PULSE 116; RESP 19; TEMP 96.2; O2SAT 100
[2016-10-28] MEDS: SENNOSIDES SYRUP 8.8 MG/5 ML CUP PO SCH (09:40)
[2016-10-28] MEDS: SODIUM CHLORIDE 0.9% FLUSH 10 ML FLUSH IV FLUSH SCH ×2 (09:40→20:27)
[2016-10-28] MEDS: LANSOPRAZOLE SOLUTAB 30 MG TAB NG SCH ×2 (09:41→20:27)
[2016-10-28] MEDS: COLLAGENASE OINT 30 GM TUBE TOP SCH (09:41)
[2016-10-28] MEDS: FLUoxetine HCL 10 MG CAP PO SCH (09:41)
[2016-10-28] MEDS: predniSONE 20 MG TAB PO SCH (09:41)
[2016-10-28] MEDS: METOPROLOL TARTRATE 50 MG TAB PO SCH ×2 (09:41→20:27)
[2016-10-28] MEDS: CHLORHEXIDINE GLUCONATE 0.12% OROPHARYNG SCH ×2 (09:42→17:31)
[2016-10-28 12:00] VITALS: BP 107/75; PULSE 109; RESP 19; TEMP 96.8; O2SAT 98
--- NOTE | 2016-10-28 13:27 | HHI.PR ---
Subjective Remarks In bed, doesn't appear in acute distress. With diarrhea in digni shild. Objective Vitals Vital Signs Date Time Temp Pulse Resp B/P Pulse Ox O2 Delivery O2 Flow Rate FiO2 10/28/16 12:00 96.8 109 19 107/75 98 10/28/16 08:00 96.2 116 19 114/73 100 10/28/16 04:00 96.6 107 18 98/71 100 10/28/16 00:24 97.7 111 16 111/74 100 10/27/16 20:24 97.6 99 20 94/80 100 10/27/16 17:07 97.6 94 18 118/87 99 I/O 10/27/16 10/27/16 10/27/16 10/28/16 10/28/16 10/28/16 07:00 15:00 23:00 07:00 15:00 23:00 Intake Total 1320 ml 490 ml 960 ml 900 ml Output Total 350 ml 500 ml Balance 970 ml 490 ml 960 ml 400 ml Tube Feeding 720 ml 490 ml 930 ml 500 ml Tube Irrigant 600 ml 30 ml Other 400 ml Output Urine Total 350 ml 500 ml Result Diagram: 10/27/16 1214 Objective Remarks GENERAL: Pleasant 46 yo AA male, chronically ill-appearing male in no apparent distress. Can nod yes/no to questions. SKIN: Sacral partial skin loss. Left upper back and medial antecubital area with skin tears. Wounds appear clean. Dried wound on the left wrist. CARDIOVASCULAR: Normal rate and regular rhythm without murmurs, gallops, or rubs. RESPIRATORY: Poor respiratory effort. Breath sounds equal and clear to auscultation bilaterally. GASTROINTESTINAL: Abdomen soft, non-distended. Normal active bowel sounds MUSCULOSKELETAL: Extremities without some evidence of contractures. NEURO: Patient is aphasic, can nod yes or no to questions. Follow commands. Generalized weakness. Right hemiparesis from previous stroke. PSYCH: Flattened affect. 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 (4) GI bleed ICD Code: K92.2 Status: Resolved (5) HCAP (healthcare-associated pneumonia) ICD Code: J18.9 Status: Resolved (6) UTI (urinary tract infection) ICD Code: N39.0 Status: Resolved (7) Leucocytosis ICD Code: D72.829 Status: Acute (8) Fever ICD Code: R50.9 Status: Acute (9) Effusion of hip joint ICD Code: M25.459 Status: Acute Assessment and Plan 46-year-old male with history of neuro-Behcet's diagnosed at [place], left frontal CVA, bedbound, nonverbal, mural thrombus, history of brain abscess, meningitis, hypertension, diabetes, presents for decreased oral intake 23 days prior to admission, and skin tear at the left upper extremity and upper back. According to the patient's , he has been having a declining course. 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 -09/26 CT abdomen/pelvis showed no acute findings -Colonoscopy done on 09/27 with no active bleeding. S/P PEG placement Sepsis Persistent Leukocytosis Right upper lung pneumonia-resolved Sacral decubitus-colonized VRE, pseudomonas S/P hip aspiration by IR 10/11 s/p abx per ID (vancomycin and Zosyn) Pancultured 10/09 CT abdomen/pelvis 09/26: No acute findings Pertinent cultures 09/25 C-diff PCR negative 09/10/16 Wound culture from sacral decubitus: Pseudo-fluoresceins/[place], enterococcus faecalis, enterococcus faecium VRE 08/26/16 urine culture with Daphney parapsilosis ID following Dr. Reyes Blood culture-staph epi(possible contaminant) on 10/05 FF fluid studies from hip aspiration Ortho is following PROPHYLAXIS Prevacid 30mg BID for GI protection SCD for DVT prophylaxis, -Doppler US LE 10/06: No DVT -Doppler US UE 09/28: Occlusive superficial thrombosis in the left cephalic vein near the antecubital fossa. No DVT Problem Qualifiers (1) GI bleed: Qualified Code: K92.2 - Gastrointestinal hemorrhage, unspecified gastrointestinal hemorrhage type (2) UTI (urinary tract infection): Qualified Code: N30.00 - Acute cystitis without hematuria (3) Effusion of hip joint: Qualified Code: M25.459 - Effusion of hip joint, unspecified laterality Brittany Garner MD October 28, 2016 13:26
[2016-10-28 16:00] VITALS: BP 127/94; PULSE 120; RESP 19; TEMP 98.5; O2SAT 98
[2016-10-28] MEDS: LACTOBACILLUS ACIDOPHILUS TAB PO SCH ×2 (16:59→20:27)
[2016-10-28 20:00] VITALS: BP 111/69; PULSE 112; RESP 21; TEMP 95.9; O2SAT 100
[2016-10-29] VITALS (7 sets, daily range): BP systolic 106–117; BP diastolic 69–79; PULSE 84–117; RESP 20–23; TEMP 97.6–98.8; O2SAT 99–100
[2016-10-29] MEDS: CHLORHEXIDINE GLUCONATE 2 % 1 PACK (2 CLOTHS) TOP SCH (03:33)
[2016-10-29] MEDS: INSULIN NovoLIN REGULAR SUPPLEMENTAL SCALE SQ SCH ×4 (05:00→23:00)
[2016-10-29] MEDS: azaTHIOprine 50 MG TAB PO SCH ×2 (05:23→17:05)
[2016-10-29] MEDS: LACTOBACILLUS ACIDOPHILUS TAB PO SCH ×2 (08:10→21:00)
[2016-10-29] MEDS: predniSONE 20 MG TAB PO SCH (08:10)
[2016-10-29] MEDS: SENNOSIDES SYRUP 8.8 MG/5 ML CUP PO SCH (08:10)
[2016-10-29] MEDS: LANSOPRAZOLE SOLUTAB 30 MG TAB NG SCH ×2 (08:10→21:00)
[2016-10-29] MEDS: METOPROLOL TARTRATE 50 MG TAB PO SCH ×2 (08:10→09:00)
[2016-10-29] MEDS: FLUoxetine HCL 10 MG CAP PO SCH (08:10)
[2016-10-29] MEDS: CHLORHEXIDINE GLUCONATE 0.12% OROPHARYNG SCH ×2 (08:10→17:05)
[2016-10-29] MEDS: SODIUM CHLORIDE 0.9% FLUSH 10 ML FLUSH IV FLUSH SCH ×2 (08:11→21:00)
[2016-10-29] MEDS: COLLAGENASE OINT 30 GM TUBE TOP SCH (08:11)
--- NOTE | 2016-10-29 11:26 | HHI.PR ---
Subjective Remarks Pt laying a bed. He responded to yes/no questions. Per RN, she believed pt to be reliable yet she voiced uncertainty to his comprehension. Pt shook his head to to having pain. Pt nodded yes to having had breakfast; pt is on tube feeds. Pt nodded yes to having slept, Objective Vitals Vital Signs Date Time Temp Pulse Resp B/P Pulse Ox O2 Delivery O2 Flow Rate FiO2 10/29/16 08:00 98.0 96 23 109/73 100 10/29/16 04:00 98.3 88 20 106/71 100 10/29/16 00:00 98.4 84 20 112/79 100 10/28/16 20:00 95.9 112 21 111/69 100 10/28/16 16:00 98.5 120 19 127/94 98 10/28/16 12:00 96.8 109 19 107/75 98 I/O 10/28/16 10/28/16 10/28/16 10/29/16 10/29/16 10/29/16 07:00 15:00 23:00 07:00 15:00 23:00 Intake Total 900 ml 880 ml Output Total 500 ml 1600 ml 250 ml 150 ml Balance 400 ml -1600 ml -250 ml 730 ml Tube Feeding 500 ml 480 ml Other 400 ml 400 ml Output Urine Total 500 ml 1100 ml 250 ml 150 ml Stool Total 500 ml # Bowel Movements 1 1 Result Diagram: 10/27/16 1214 Imaging Last Impressions Chest X-Ray 10/16/16 0000 Signed Impressions: Service Date/Time: Monday, October 17, 2016 00:09 - CONCLUSION: No acute pulmonary infiltrates. Kel Gay MD Hip Aspiration/Injection 10/08/16 0000 Signed Impressions: Service Date/Time: Tuesday, October 11, 2016 13:41 - CONCLUSION: Uncomplicated aspiration as above. Minimal fluid on the right. No identifiable fluid on the left Clayton Max MD Lower Extremity Ultrasound 10/06/16 0000 Signed Impressions: Service Date/Time: September 17:29 - CONCLUSION: Normal examination. Josafat Meyer MD CT Angiography 10/06/16 0000 Signed Impressions: Service Date/Time: September 20:31 - CONCLUSION: Minimal right upper lobe infiltrate and basilar atelectasis. No evidence of pulmonary embolism.. Josafat Meyer MD Abdomen/Pelvis CT 10/06/16 0000 Signed Impressions: Service Date/Time: September 20:31 - CONCLUSION: No evidence of pelvic abscess. Josafat Meyer MD Upper Extremity Ultrasound 09/28/16 Signed Impressions: Service Date/Time: Wednesday, September 28, 2016 19:15 - CONCLUSION: 1. Occlusive superficial thrombosis in the left cephalic vein near the antecubital fossa. No deep venous thrombosis. Sumit Bourgeois MD Renal Ultrasound 08/28/16 Signed Impressions: Service Date/Time: Sunday, August 28, 2016 20:03 - CONCLUSION: Mild increased echotexture of both kidneys. Baldev Vu MD Lumbar Puncture Fluoroscopy 08/17/16 0000 Signed Impressions: Service Date/Time: Wednesday, August 17, 2016 12:26 - CONCLUSION: Uncomplicated fluoroscopically guided lumbar puncture. Vishal Beckford Jr., MD Brain MRI 08/17/16 Signed Impressions: Service Date/Time: Wednesday, August 17, 2016 13:28 - CONCLUSION: Remote long-standing areas of abnormality in the brainstem and middle cerebellar peduncle consistent with remote infarcts or contusion. No acute intracranial abnormality. Chacho Bright MD Abdomen X-Ray 08/17/16 Signed Impressions: Service Date/Time: Wednesday, August 17, 2016 13:02 - CONCLUSION: No evidence of obstruction. No MRI incompatible foreign body is identified. Chacho Bright MD Head CT 08/16/16 0000 Signed Impressions: Service Date/Time: Tuesday, August 16, 2016 09:55 - CONCLUSION: Chronic ischemic changes left frontal lobe possibly from evidence of previous ventriculostomy placement, unchanged. No acute intracranial abnormality. Gen Potter MD Modified Barium Swallow 08/15/16 0000 Signed Impressions: Service Date/Time: Monday, August 15, 2016 00:00 - CONCLUSION: See report above and speech pathology report Chacho Bright MD Objective Remarks GENERAL: Pt encountered laying a bed, Pt observed to nod/shake his head in response to questions asked of him. SKIN: Warm and dry. Pt in contact precautions for MRSA. Pt found to have covered wound on right malleolus, lateral aspect, dated "10/29". HEAD: Normocephalic. EYES: No scleral icterus. No injection or drainage. NECK: Supple, trachea midline. No JVD or lymphadenopathy. CARDIOVASCULAR: Regular rate and rhythm without murmurs, gallops, or rubs. RESPIRATORY: Breath sounds equal bilaterally. No accessory muscle use. GASTROINTESTINAL: Abdomen soft, non-tender, nondistended. Feeding tube in place. MUSCULOSKELETAL: No cyanosis, or edema. PSYCHIATRIC: Pt laying a bed, as above nodding/shaking head in response to questions. Procedures 07/19/16 EGD with PEG tube placement 09/27/16 colonoscopy Medications and IVs Current Medications Medications (Trade) Dose Ordered Sig/Beau Route Start Time Stop Time Status Last Admin (Tylenol) 650 mg Q4H PRN PO 08/13/16 14:00 10/10/16 20:56 (Tylenol Supp) 650 mg Q6H PRN RECTAL 08/15/16 16:30 09/06/16 20:06 (PROzac) 10 mg DAILY PO 08/24/16 09:00 10/29/16 08:10 (Lovenox Inj) 40 mg Q24H SQ 09/02/16 09:00 Hold 09/25/16 08:30 (Zofran Liq) 4 mg Q6H PRN PEG 09/11/16 16:00 (Miralax) 17 gm DAILY PRN PEG 09/11/16 16:00 (Santyl Oint) 1 applic DAILY TOP 09/14/16 16:00 10/29/16 08:11 (D50w (Vial) Inj) 25 ml UNSCH PRN IV PUSH 09/25/16 16:15 (Glucagon Inj) 1 mg UNSCH PRN OTHER 09/25/16 16:15 (NovoLIN R SUPPLEMENTAL SCALE) 1 Q6H SQ 09/25/16 17:00 10/28/16 17:31 (Pill Splitter) 1 ea UNSCH PRN OTHER 09/26/16 09:00 (Prevacid Odt) 30 mg BID NG 09/30/16 10:15 10/29/16 08:10 (Ballard 5-325 Mg) 1 tab Q4H PRN PEG 10/02/16 13:00 10/26/16 08:06 (Motrin Liq) 200 mg Q6H PRN PEG 10/07/16 01:00 10/19/16 23:27 (NS Flush) 2 ml UNSCH PRN IV FLUSH 10/09/16 10:00 10/13/16 12:27 (NS Flush) 2 ml BID IV FLUSH 10/09/16 21:00 10/29/16 08:11 Miscellaneous Information 1 Q361D XX 10/09/16 10:00 (Chlorhexidine 2% Cloth) 3 pack Taper DAILY@04 TOP 10/10/16 04:00 10/06/17 03:59 10/26/16 03:56 (Chlorhexidine 2% Cloth) 3 pack UNSCH PRN TOP 10/09/16 10:00 (Senna Liq) 8.8 mg DAILY PO 10/10/16 09:00 10/29/16 08:10 Non-Formulary Medication CHLORHEXIDINE GLUCONATE 0.12% 30... 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 (4) GI bleed ICD Code: K92.2 Status: Resolved (5) HCAP (healthcare-associated pneumonia) ICD Code: J18.9 Status: Resolved (6) UTI (urinary tract infection) ICD Code: N39.0 Status: Resolved (7) Leucocytosis ICD Code: D72.829 Status: Acute (8) Fever ICD Code: R50.9 Status: Acute (9) Effusion of hip joint ICD Code: M25.459 Status: Acute Assessment and Plan 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 Dosage has been held constant for [address] Garner who advised changing dose to 30 mg/day. As pt was reported to have had difficulty with decrease in steroid in the past, pt's taper may be extended. Sinus tachycardia Lopressor 50 mg BID for rate control-monitor HR and BP keep MAP>65mmHg --response to sepsis, resolved. -Lopressor was increased by Hospitalist team on 10/21/16 to 100mg q 12 hrs. However, medication is being held at time due to parameters, dosage will be decreased to 75 mg q 12 hrs. GI bleed-resolved Continue with Protonix 40 -s/p EGD 09/25 no signs of active bleeding -S/p transfusion 3units PRBC overnight on 09/26 monitor H/H. -09/26 CT abdomen/pelvis showed no acute findings -Colonoscopy done on 09/27 with no active bleeding. S/P PEG placement Sepsis Persistent Leukocytosis Right upper lung pneumonia-resolved Sacral decubitus-colonized VRE, pseudomonas S/P hip aspiration by IR 10/11 s/p abx per ID (vancomycin and Zosyn) Pancultured 10/09 CT abdomen/pelvis 09/26: No acute findings Pertinent cultures 09/25 C-diff PCR negative 09/10/16 Wound culture from sacral decubitus: Pseudo-fluoresceins/[place], enterococcus faecalis, enterococcus faecium VRE 08/26/16 urine culture with Daphney parapsilosis ID following Dr. Reyes Blood culture-staph epi(possible contaminant) on 10/05 FF fluid studies from hip aspiration Ortho saw pt on 10/08/17, no further services since that consultation visit. ID signed off case 10/18/16 As pt is NPO, discontinued oral acetaminophen. Pt still has ordered for PEG and rectal acetaminophen. PROPHYLAXIS Prevacid 30mg BID for GI protection SCD for DVT prophylaxis, -Doppler US LE 10/06: No DVT -Doppler US UE 09/28: Occlusive superficial thrombosis in the left cephalic vein near the antecubital fossa. No DVT Problem Qualifiers (1) GI bleed: Qualified Code: K92.2 - Gastrointestinal hemorrhage, unspecified gastrointestinal hemorrhage type (2) UTI (urinary tract infection): Qualified Code: N30.00 - Acute cystitis without hematuria (3) Effusion of hip joint: Qualified Code: M25.459 - Effusion of hip joint, unspecified laterality Italo Sherman Jr. October 29, 2016 11:26 Brittany Garner MD October 29, 2016 13:03 Italo Sherman Jr. October 29, 2016 11:26 Brittany Garner MD October 29, 2016 13:03
[2016-10-29] MEDS: ACETAMINOPHEN/HYDROcodone 325 MG/5 MG TAB PEG PRN (14:46)
[2016-10-29] MEDS: METOPROLOL TARTRATE 50 MG TAB PEG SCH (21:00)
[2016-10-30] VITALS: BP 106/74; PULSE 83; RESP 20; TEMP 96.6; O2SAT 99
[2016-10-30 04:00] VITALS: BP 104/69; PULSE 86; RESP 20; TEMP 97; O2SAT 99
[2016-10-30] MEDS: CHLORHEXIDINE GLUCONATE 2 % 1 PACK (2 CLOTHS) TOP SCH (04:00)
[2016-10-30] MEDS: INSULIN NovoLIN REGULAR SUPPLEMENTAL SCALE SQ SCH ×4 (05:00→23:00)
[2016-10-30] MEDS: azaTHIOprine 50 MG TAB PO SCH ×2 (06:00→16:54)
[2016-10-30 08:10] VITALS: BP 117/74; PULSE 86; RESP 20; TEMP 96.4; O2SAT 99
[2016-10-30] MEDS: LACTOBACILLUS ACIDOPHILUS TAB PO SCH ×2 (08:52→21:00)
[2016-10-30] MEDS: FLUoxetine HCL 10 MG CAP PO SCH (08:53)
[2016-10-30] MEDS: METOPROLOL TARTRATE 50 MG TAB PEG SCH ×2 (08:53→21:00)
[2016-10-30] MEDS: predniSONE 20 MG TAB PEG SCH (08:53)
[2016-10-30] MEDS: LANSOPRAZOLE SOLUTAB 30 MG TAB NG SCH ×2 (08:53→21:00)
[2016-10-30] MEDS: SENNOSIDES SYRUP 8.8 MG/5 ML CUP PO SCH (08:53)
[2016-10-30] MEDS: CHLORHEXIDINE GLUCONATE 0.12% OROPHARYNG SCH ×2 (08:54→16:55)
[2016-10-30] MEDS: SODIUM CHLORIDE 0.9% FLUSH 10 ML FLUSH IV FLUSH SCH ×2 (08:54→21:00)
[2016-10-30] MEDS: ACETAMINOPHEN/HYDROcodone 325 MG/5 MG TAB PEG PRN (08:54)
[2016-10-30] MEDS: COLLAGENASE OINT 30 GM TUBE TOP SCH (09:00)
--- NOTE | 2016-10-30 11:01 | HHI.PR ---
Subjective Remarks Pt encountered laying a bed. Unintelligible vocalizations noted. Per RN, pt was tearful this am, pain medications given, tearfulness reportedly absent afterwards. Per RN back wound dressing to be changed later today. Per RN no significant change in status. Objective Vitals Vital Signs Date Time Temp Pulse Resp B/P Pulse Ox O2 Delivery O2 Flow Rate FiO2 10/30/16 08:10 96.4 86 20 117/74 99 10/30/16 04:00 97.0 86 20 104/69 99 10/30/16 00:00 96.6 83 20 106/74 99 10/29/16 22:24 21 10/29/16 20:00 98.1 106 20 110/74 99 10/29/16 19:00 98.1 106 21 110/74 99 10/29/16 16:00 98.8 117 23 117/71 99 10/29/16 15:46 20 10/29/16 12:00 97.6 92 23 106/69 99 I/O 10/29/16 10/29/16 10/29/16 10/30/16 10/30/16 10/30/16 07:00 15:00 23:00 07:00 15:00 23:00 Intake Total 880 ml 200 ml 400 ml Output Total 150 ml 1100 ml 150 ml 300 ml Balance 730 ml -1100 ml 50 ml 100 ml Tube Feeding 480 ml Other 400 ml 200 ml 400 ml Output Urine Total 150 ml 1100 ml 150 ml 300 ml # Bowel Movements 1 Result Diagram: 10/27/16 1214 Other Results None Imaging No imaging studies ordered or reported within past 24 hours. Objective Remarks GENERAL: Pt encountered laying a bed, Pt not nodding or shaking his head as noted yesterday. Unintelligible vocalizations of pt noted. SKIN: Warm and dry. Pt in contact precautions for MRSA. Pt found to have covered wound on right malleolus, lateral aspect, dated "10/29". Xeroderma of lower legs/feet noted. HEAD: Normocephalic. EYES: No scleral icterus. No injection or drainage. NECK: Supple, trachea midline. No JVD or lymphadenopathy. CARDIOVASCULAR: Regular rate and rhythm without murmurs, gallops, or rubs. RESPIRATORY: Breath sounds equal bilaterally. No accessory muscle use. GASTROINTESTINAL: Abdomen soft, non-tender, nondistended. Feeding tube in place. MUSCULOSKELETAL: No cyanosis, or edema. PSYCHIATRIC: Pt laying a bed, as noted above. Pt did not appear agitated. 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 (4) GI bleed ICD Code: K92.2 Status: Resolved (5) HCAP (healthcare-associated pneumonia) ICD Code: J18.9 Status: Resolved (6) UTI (urinary tract infection) ICD Code: N39.0 Status: Resolved (7) Leucocytosis ICD Code: D72.829 Status: Acute (8) Fever ICD Code: R50.9 Status: Acute (9) Effusion of hip joint ICD Code: M25.459 Status: Acute (10) Xeroderma ICD Code: Q80.9 Status: Acute Assessment and Plan 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 Dosage has been held constant for [address] Garner who advised changing dose to 30 mg/day. As pt was reported to have had difficulty with decrease in steroid in the past, pt's taper may be extended. -New prednisone tapering dose initiated this morning (10/30/16). Sinus tachycardia Lopressor 50 mg BID for rate control-monitor HR and BP keep MAP>65mmHg --response to sepsis, resolved. -Lopressor was increased by Hospitalist team on 10/21/16 to 100mg q 12 hrs. However, medication is being held at time due to parameters, dosage will be decreased to 75 mg q 12 hrs. -New metoprolol dosage administered this am (10/30/16). Xeroderma: -Lac-Hydrin ordered to be applied to legs and feet. GI bleed-resolved Continue with Protonix 40 -s/p EGD 09/25 no signs of active bleeding -S/p transfusion 3units PRBC overnight on 09/26 monitor H/H. -09/26 CT abdomen/pelvis showed no acute findings -Colonoscopy done on 09/27 with no active bleeding. S/P PEG placement Sepsis Persistent Leukocytosis Right upper lung pneumonia-resolved Sacral decubitus-colonized VRE, pseudomonas S/P hip aspiration by IR 10/11 s/p abx per ID (vancomycin and Zosyn) Pancultured 10/09 CT abdomen/pelvis 09/26: No acute findings Pertinent cultures 09/25 C-diff PCR negative 09/10/16 Wound culture from sacral decubitus: Pseudo-fluoresceins/[place], enterococcus faecalis, enterococcus faecium VRE 08/26/16 urine culture with Daphney parapsilosis ID following Dr. Reyes Blood culture-staph epi(possible contaminant) on 10/05 FF fluid studies from hip aspiration Ortho saw pt on 10/08/17, no further services since that consultation visit. ID signed off case 10/18/16 As pt is NPO, discontinued oral acetaminophen. Pt still has ordered for PEG and rectal acetaminophen. PROPHYLAXIS Prevacid 30mg BID for GI protection SCD for DVT prophylaxis, -Doppler US LE 10/06: No DVT -Doppler US UE 09/28: Occlusive superficial thrombosis in the left cephalic vein near the antecubital fossa. No DVT -SCD's in place (10/30/16). Problem Qualifiers (1) GI bleed: Qualified Code: K92.2 - Gastrointestinal hemorrhage, unspecified gastrointestinal hemorrhage type (2) UTI (urinary tract infection): Qualified Code: N30.00 - Acute cystitis without hematuria (3) Effusion of hip joint: Qualified Code: M25.459 - Effusion of hip joint, unspecified laterality Italo Sherman Jr. October 30, 2016 11:01 Brittany Garner MD October 30, 2016 16:08 Qualified Code: M25.459 - Effusion of hip joint, unspecified laterality Italo Sherman Jr. October 30, 2016 11:01 Brittany Garner MD October 30, 2016 16:08
[2016-10-30 12:00] VITALS: BP_SYST 137; BP_SYST 93; BP_DIAS 63; BP_DIAS 83; PULSE 101; PULSE 76; RESP 18; RESP 20; TEMP 97.4; TEMP 97.5; O2SAT 100; O2SAT 98
[2016-10-30 16:18] VITALS: BP 107/66; PULSE 80; RESP 18; TEMP 96.5; O2SAT 98
[2016-10-30 20:00] VITALS: BP 116/80; PULSE 92; RESP 16; TEMP 98.4; O2SAT 98
[2016-10-30] MEDS: LACTIC ACID (AMMONIUM LACTATE) 12% LOTION 225 GM BTL TOPICAL SCH (21:00)
[2016-10-31] VITALS: BP 114/78; PULSE 75; RESP 18; TEMP 97.6; O2SAT 99
[2016-10-31] MEDS: CHLORHEXIDINE GLUCONATE 2 % 1 PACK (2 CLOTHS) TOP SCH ×2 (04:00→22:29)
[2016-10-31] MEDS: INSULIN NovoLIN REGULAR SUPPLEMENTAL SCALE SQ SCH ×4 (05:00→22:29)
[2016-10-31] MEDS: azaTHIOprine 50 MG TAB PO SCH ×2 (06:26→16:47)
[2016-10-31 06:27] VITALS: BP 113/86; PULSE 77; RESP 16; TEMP 97.1; O2SAT 98
[2016-10-31 08:24] VITALS: BP 102/72; PULSE 78; RESP 18; TEMP 96.3; O2SAT 100
--- NOTE | 2016-10-31 08:26 | HHI.PR ---
Subjective Remarks Follow up for neuro-Behcets. The patient is awake, alert, nonverbal. He does nod his head appropriately. He denies any pain. He slept well last night. Denies fevers, and no documented fevers. No acute events overnight. Objective Vitals Vital Signs Date Time Temp Pulse Resp B/P Pulse Ox O2 Delivery O2 Flow Rate FiO2 10/31/16 06:27 97.1 77 16 113/86 98 10/31/16 00:00 97.6 75 18 114/78 99 10/30/16 20:00 98.4 92 16 116/80 98 10/30/16 16:18 96.5 80 18 107/66 98 10/30/16 12:00 97.4 76 18 93/63 98 I/O 10/30/16 10/30/16 10/30/16 10/31/16 10/31/16 10/31/16 07:00 15:00 23:00 07:00 15:00 23:00 Intake Total 400 ml 200 ml 3170 ml Output Total 300 ml 450 ml 700 ml 350 ml Balance 100 ml -250 ml 2470 ml -350 ml Tube Feeding 200 ml 3170 ml Other 400 ml Output Urine Total 300 ml 450 ml 700 ml 350 ml Stool Total 0 ml # Bowel Movements 0 Result Diagram: 10/27/16 1214 Imaging Last Impressions Chest X-Ray 10/16/16 0000 Signed Impressions: Service Date/Time: Monday, October 17, 2016 00:09 - CONCLUSION: No acute pulmonary infiltrates. Kel Gay MD Hip Aspiration/Injection 10/08/16 0000 Signed Impressions: Service Date/Time: Tuesday, October 11, 2016 13:41 - CONCLUSION: Uncomplicated aspiration as above. Minimal fluid on the right. No identifiable fluid on the left Clayton Max MD Lower Extremity Ultrasound 10/06/16 0000 Signed Impressions: Service Date/Time: September 17:29 - CONCLUSION: Normal examination. Josafat Meyer MD CT Angiography 10/06/16 0000 Signed Impressions: Service Date/Time: September 20:31 - CONCLUSION: Minimal right upper lobe infiltrate and basilar atelectasis. No evidence of pulmonary embolism.. Josafat Meyer MD Abdomen/Pelvis CT 10/06/16 0000 Signed Impressions: Service Date/Time: September 20:31 - CONCLUSION: No evidence of pelvic abscess. Josafat Meyer MD Upper Extremity Ultrasound 09/28/16 Signed Impressions: Service Date/Time: Wednesday, September 28, 2016 19:15 - CONCLUSION: 1. Occlusive superficial thrombosis in the left cephalic vein near the antecubital fossa. No deep venous thrombosis. Sumit Bourgeois MD Renal Ultrasound 08/28/16 Signed Impressions: Service Date/Time: Sunday, August 28, 2016 20:03 - CONCLUSION: Mild increased echotexture of both kidneys. Baldev Vu MD Lumbar Puncture Fluoroscopy 08/17/16 Signed Impressions: Service Date/Time: Wednesday, August 17, 2016 12:26 - CONCLUSION: Uncomplicated fluoroscopically guided lumbar puncture. Vishal Beckford Jr., MD Brain MRI 08/17/16 Signed Impressions: Service Date/Time: Wednesday, August 17, 2016 13:28 - CONCLUSION: Remote long-standing areas of abnormality in the brainstem and middle cerebellar peduncle consistent with remote infarcts or contusion. No acute intracranial abnormality. Chacho Bright MD Abdomen X-Ray 08/17/16 Signed Impressions: Service Date/Time: Wednesday, August 17, 2016 13:02 - CONCLUSION: No evidence of obstruction. No MRI incompatible foreign body is identified. Chacho Bright MD Head CT 08/16/16 Signed Impressions: Service Date/Time: Tuesday, August 16, 2016 09:55 - CONCLUSION: Chronic ischemic changes left frontal lobe possibly from evidence of previous ventriculostomy placement, unchanged. No acute intracranial abnormality. Gen Potter MD Modified Barium Swallow 08/15/16 0000 Signed Impressions: Service Date/Time: Monday, August 15, 2016 00:00 - CONCLUSION: See report above and speech pathology report Chacho Bright MD Objective Remarks GENERAL: Well-nourished, well-developed middle aged male patient in NAD. SKIN: Warm and dry. No rash. Right lateral malleolus with dressing in place, CDI. HEENT: Normocephalic. Atraumatic. Pupils equal and round. No scleral icterus. No injection or drainage. ENT: No nasal bleeding or discharge. Mucous membranes pink and moist. NECK: Supple. Trachea midline. CARDIOVASCULAR: Regular rate and rhythm. S1, S2 noted. No murmur appreciated. RESPIRATORY: No accessory muscle use. Clear to auscultation. Breath sounds equal bilaterally. GASTROINTESTINAL: Abdomen soft, non-tender, nondistended. Normoactive bowel sounds x4. Feeding tube in place. MUSCULOSKELETAL: No obvious deformities. Extremities without clubbing, cyanosis , or edema. NEUROLOGICAL: Awake and alert, nonverbal, nods head yes/no. Procedures 07/19/16 EGD with PEG tube placement 09/27/16 colonoscopy Medications and IVs Current Medications Medications (Trade) Dose Ordered Sig/Beau Route Start Time Stop Time Status Last Admin (Tylenol Supp) 650 mg Q6H PRN RECTAL 08/15/16 16:30 09/06/16 20:06 (PROzac) 10 mg DAILY PO 08/24/16 09:00 10/30/16 08:53 (Lovenox Inj) 40 mg Q24H SQ 09/02/16 09:00 Hold 09/25/16 08:30 (Zofran Liq) 4 mg Q6H PRN PEG 09/11/16 16:00 (Miralax) 17 gm DAILY PRN PEG 09/11/16 16:00 (Santyl Oint) 1 applic DAILY TOP 09/14/16 16:00 10/30/16 09:00 (D50w (Vial) Inj) 25 ml UNSCH PRN IV PUSH 09/25/16 16:15 (Glucagon Inj) 1 mg UNSCH PRN OTHER 09/25/16 16:15 (NovoLIN R SUPPLEMENTAL SCALE) 1 Q6H SQ 09/25/16 17:00 10/30/16 16:54 (Pill Splitter) 1 ea UNSCH PRN OTHER 09/26/16 09:00 (Prevacid Odt) 30 mg BID NG 09/30/16 10:15 10/30/16 21:00 ([place] 5-325 Mg) 1 tab Q4H PRN PEG 10/02/16 13:00 10/30/16 08:54 (Motrin Liq) 200 mg Q6H PRN PEG 10/07/16 01:00 10/19/16 23:27 (NS Flush) 2 ml UNSCH PRN IV FLUSH 10/09/16 10:00 10/13/16 12:27 (NS Flush) 2 ml BID IV FLUSH 10/09/16 21:00 10/30/16 21:00 Miscellaneous Information 1 Q361D XX 10/09/16 10:00 (Chlorhexidine 2% Cloth) 3 pack Taper DAILY@04 TOP 10/10/16 04:00 10/06/17 03:59 10/26/16 03:56 (Chlorhexidine 2% Cloth) 3 pack UNSCH PRN TOP 10/09/16 10:00 (Senna Liq) 8.8 mg DAILY PO 10/10/16 09:00 10/30/16 08:53 Non-Formulary Medication CHLORHEXIDINE GLUCONATE 0.12% 30... 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 (4) GI bleed ICD Code: K92.2 Status: Resolved (5) HCAP (healthcare-associated pneumonia) ICD Code: J18.9 Status: Resolved (6) UTI (urinary tract infection) ICD Code: N39.0 Status: Resolved (7) Leucocytosis ICD Code: D72.829 Status: Acute (8) Fever ICD Code: R50.9 Status: Acute (9) Effusion of hip joint ICD Code: M25.459 Status: Acute (10) Xeroderma ICD Code: Q80.9 Status: Acute Assessment and Plan 46-year-old male with history of neuro-Behet's diagnosed at [place], left frontal CVA, bedbound, nonverbal, mural thrombus, brain abscess, meningitis, hypertension, diabetes, initially presented for decreased oral intake over the past 23 days, and skin tear at the left upper extremity. 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 Dosage constant for [address] Garner who advised changing dose to 30 mg/day. Patient with hx of difficulty with decrease in steroid in the past, pt's taper may be extended. -New prednisone tapering dose initiated 10/30 Sinus tachycardia Lopressor 50 mg BID for rate control-monitor HR and BP keep MAP>65mmHg --response to sepsis, resolved. -Continue metoprolol 75 mg q 12 hrs. Xeroderma: -Lac-Hydrin ordered to be applied to legs and feet. GI bleed-resolved Continue with Protonix 40 -s/p EGD 09/25 no signs of active bleeding -S/p transfusion 3units PRBC overnight on 09/26 monitor H/H. -09/26 CT abdomen/pelvis showed no acute findings -Colonoscopy done on 09/27 with no active bleeding. S/P PEG placement Sepsis Persistent Leukocytosis Right upper lung pneumonia-resolved Sacral decubitus-colonized VRE, pseudomonas S/P hip aspiration by IR 10/11 s/p abx per ID (vancomycin and Zosyn) Pancultured 10/09 CT abdomen/pelvis 09/26: No acute findings Pertinent cultures 09/25 C-diff PCR negative 09/10/16 Wound culture from sacral decubitus: Pseudo-fluoresceins/[place], enterococcus faecalis, enterococcus faecium VRE 08/26/16 urine culture with Daphney parapsilosis 10/05 Blood culture-staph epi(possible contaminant) 10/11 hip aspiration culture with no growth -ID following Dr. Reyes -Ortho saw pt on 10/08/17, no further services since that consultation visit. -ID signed off case 10/18/16 -As pt is NPO, discontinued oral acetaminophen. Pt still has ordered for PEG and rectal acetaminophen. PROPHYLAXIS Prevacid 30mg BID for GI protection SCD for DVT prophylaxis, -Doppler US LE 10/06: No DVT -Doppler US UE 09/28: Occlusive superficial thrombosis in the left cephalic vein near the antecubital fossa. No DVT Problem Qualifiers (1) GI bleed: Qualified Code: K92.2 - Gastrointestinal hemorrhage, unspecified gastrointestinal hemorrhage type (2) UTI (urinary tract infection): Qualified Code: N30.00 - Acute cystitis without hematuria (3) Effusion of hip joint: Qualified Code: M25.459 - Effusion of hip joint, unspecified laterality Anita Cabrera PA-C October 31, 2016 08:26 Brittany Garner MD October 31, 2016 18:05
[2016-10-31] MEDS: predniSONE 20 MG TAB PEG SCH (10:12)
[2016-10-31] MEDS: METOPROLOL TARTRATE 50 MG TAB PEG SCH ×2 (10:12→22:27)
[2016-10-31] MEDS: LACTOBACILLUS ACIDOPHILUS TAB PO SCH ×2 (10:12→22:26)
[2016-10-31] MEDS: SENNOSIDES SYRUP 8.8 MG/5 ML CUP PO SCH (10:12)
[2016-10-31] MEDS: FLUoxetine HCL 10 MG CAP PO SCH (10:12)
[2016-10-31] MEDS: LANSOPRAZOLE SOLUTAB 30 MG TAB NG SCH ×2 (10:13→22:26)
[2016-10-31] MEDS: LACTIC ACID (AMMONIUM LACTATE) 12% LOTION 225 GM BTL TOPICAL SCH ×2 (10:13→22:28)
[2016-10-31] MEDS: COLLAGENASE OINT 30 GM TUBE TOP SCH (10:14)
[2016-10-31] MEDS: SODIUM CHLORIDE 0.9% FLUSH 10 ML FLUSH IV FLUSH SCH ×2 (10:26→22:27)
[2016-10-31 13:03] VITALS: BP 109/72; PULSE 72; RESP 16; TEMP 97.5; O2SAT 99
--- NOTE | 2016-10-31 15:22 | HHI.HCPN ---
Reason for visit a. To assist with evaluation and management of symptoms including: debility, encephalopathy b. To assist medical decision maker(s) with: better understanding of current medical conditions; weighing benefits/burdens of medical treatment options; making medical treatment decisions. . (Alissa Castro) Subjective/Interval History Patient is hemodynamically stable. Most recent lab work from 10/27/16: WBC 18.1, hemoglobin 11.0, hematocrit 34.9, platelets 434, neutrophils 94.1% Tolerating artificial nutrition, Glucerna at 65 mL's per hour. Pt is awake and alert. He is non-verbal but able to answer yes or no questions by looking upward or downward. When asked if his girlfriend's name is Claudia or Vivienne, patient looks downward indicating "no". When asked if his girlfriend's name is Lucille, he looks upward indicating "yes". Patient denies pain, shortness of breath or any other acute distress. He becomes tearful during examination, nurse was notified. . (Alissa Castro) Advance Directives Living Will: Never completed Health Care Surrogate: Copy in medical record Durable Power of Airplane Pilot Crop Dusting: Never completed (Alissa Castro) Advance Directive Specifics Health Care Surrogate(s): No living will or healthcare surrogate designation found in medical records. Patricia Harrell acting as healthcare proxy. Unclear at this time if they are legally . . Documented care wishes: completed living will today. (Alissa Castro) Objective Vital Signs Date Time Temp Pulse Resp B/P Pulse Ox O2 Delivery O2 Flow Rate FiO2 10/31/16 13:03 97.5 72 16 109/72 99 10/31/16 08:24 96.3 78 18 102/72 100 10/31/16 06:27 97.1 77 16 113/86 98 10/31/16 00:00 97.6 75 18 114/78 99 10/30/16 20:00 98.4 92 16 116/80 98 10/30/16 16:18 96.5 80 18 107/66 98 Intake & Output 10/31/16 10/31/16 07:00 19:00 Intake Total 600 ml Output Total 600 ml Balance 0 ml Tube Feeding 600 ml Output Urine Total 600 ml Stool Total 0 ml # Bowel Movements 0 . Physical Exam CONSTITUTIONAL/GENERAL: This is a thin, middle aged male patient in no acute distress, eyes open. TUBES/LINES/DRAINS: PIV's, PEG tube, condom catheter,zach-shield SKIN: No jaundice. Skin temperature appropriate. Not diaphoretic. HEAD: Atraumatic. Normocephalic. EYES: Pupils equal and round and reactive. Nystagmus, able to move eyes up and down on command. ENT: Unable to assess hearing secondary to responsiveness. Nose without bleeding or purulent drainage. Moderate amount of clear, oral secretions. NECK: Trachea midline. Supple, nontender. CARDIOVASCULAR: Regular rate and rhythm No Murmurs, gallops, or rubs. No JVD. Peripheral pulses symmetric. RESPIRATORY/CHEST: Shallow respirations with diminished air exchange laterally, scattered rhonchi. GASTROINTESTINAL: Abdomen soft, non-tender, nondistended. PEG tube in place. No guarding. Bowel sounds present. Zach shield in place GENITOURINARY: Without palpable bladder distension. Condom catheter draining clear yellow urine MUSCULOSKELETAL: Extremities without clubbing, cyanosis, or edema. Muscle wasting noted. Flexion contractures in bilateral lower extremities. NEUROLOGICAL: Have some purposeful movement, moving eyes upward to indicate yes , and gazing downward to indicate no. Some motion of head movements. . (Alissa Castro) Diagnostic Tests Result Diagram: 10/27/16 1214 Procedures * 08/19/16 -PEG tube placement * 08/17/16- lumbar puncture * 10/11/16ultrasound guided aspiration, right hip region. . (Alissa Castro) Assessment and Plan Disease Oriented Problem List: (1) Neurologic type Behcet's syndrome (2) Sepsis (3) Impaired mobility and activities of daily living Symptom Scale: (1) Debility 0-10 Scale: Unable to quantify Comment: Progressive secondary to Neuro-Behcet's syndrome, CVA. Now bed bound , completely dependent for all ADLs. Receiving artificial nutrition via PEG tube. Flexion contractures in bilateral lower extremities. (2) Encephalopathy Comment: Patient with diagnosis of neuro-behcet. Patient is bed bound, non- verbal. Eyes are open, but do not track. Pertinent Non-Medical Issues Psychosocial: Reported as . Unknown if he has any children. Spiritual: No spiritual affiliations. Legal: No living will or advanced directives found in medical records. Patricia Harrell presented as and has been acting as healthcare proxy. Ethical issues impacting care: No living will or advanced directives found in medical records. Patricia Harrell presented as and has been acting as healthcare proxy. . Important Contacts Patricia Mendoza. [phone]. . Prognosis Mr. Mendoza is a 46-year-old male with a past medical history of neuro-Behcet' s syndrome diagnosed at [facility], left frontal CVA discovered in November 2015, diabetes mellitus type 2, mural thrombus, brain abscess in 2014, meningitis, hypertension and bedbound state. Patient presented to the ED on 08/13/16 via EMS were reports of decreased oral intake for the prior 2-3 days and skin tear to left upper extremity. He was admitted for sepsis. Patient is at high risk for further complications, continue decline and . His diagnosis of neuro- Behcet's syndrome was done at [facility]. Code Status: Full Code Plan * FULL CODE * Decision-making: Patient consistently reaffirms that if he should lose capacity, he wishes for Lucille Harrell to act as the [facility] decision maker. * Goals of Care remain aggressive * Pt is awake and alert. He is non-verbal but able to answer yes or no questions by looking upward or downward. When asked if his girlfriend's name is Claudia or Vivienne, patient looks downward indicating "no". When asked if his girlfriend's name is Lucille, he looks upward indicating "yes". Patient denies pain, shortness of breath or any other acute distress. He becomes tearful during examination, nurse was notified. * Palliative care will continue to follow-up with this patient as needed, but goals of care is firmly established and it remains aggressive . (Alissa Castro) Attestation To help prompt me to consider important information that might be impacting today's encounter and assessment, information from prior notes written by myself or my colleagues may have been "brought forward" into today's note. My signature on this note, however, is an attestation that I personally performed the exam, history, and/or decision-making noted today, and, unless otherwise indicated, the interactions with patient, family, and staff as well as the review of records all occurred today. I also attest that the listed assessment and stated plan reflect my best clinical judgment today based on the combination of historical information, prior notes, and today's exam/ interactions. When time spent is documented, it refers only to time spent today by the signer, or if indicated, combined time spent today by collaborating physician/nurse practitioner. . (Alissa Castro) Collaborating MD Comments . Chart reviewed. Cased discussed with palliative care MOTOR TESTER. Above MOTOR TESTER note reviewed and I concur. . (Antolin Daniel MD) Alissa Castro October 31, 2016 15:22 Antolin Daniel MD November 21, 2016 15:59
[2016-10-31 16:47] VITALS: BP 115/74; PULSE 89; RESP 16; TEMP 97.7; O2SAT 96
[2016-10-31] MEDS: CHLORHEXIDINE GLUCONATE 0.12% OROPHARYNG SCH ×2 (16:47→18:13)
[2016-10-31] MEDS: PADIMATE (CHAPSTICK) 4.5 GM TUBE TOPICAL PRN ×2 (16:49→22:10)
[2016-10-31 20:00] VITALS: BP 117/76; PULSE 76; RESP 20; TEMP 97.3; O2SAT 99
[2016-11-01] VITALS: BP 113/74; PULSE 71; RESP 18; TEMP 97; O2SAT 100
[2016-11-01 04:00] VITALS: BP 112/77; PULSE 83; RESP 20; TEMP 95.9; O2SAT 95
[2016-11-01] MEDS: INSULIN NovoLIN REGULAR SUPPLEMENTAL SCALE SQ SCH ×4 (05:00→23:00)
[2016-11-01] MEDS: PADIMATE (CHAPSTICK) 4.5 GM TUBE TOPICAL PRN (05:10)
[2016-11-01] MEDS: azaTHIOprine 50 MG TAB PO SCH ×2 (05:15→17:40)
[2016-11-01 08:21] VITALS: BP 113/77; PULSE 86; RESP 18; TEMP 96.1
[2016-11-01] MEDS: CHLORHEXIDINE GLUCONATE 0.12% OROPHARYNG SCH ×2 (09:00→17:39)
[2016-11-01] MEDS: LACTOBACILLUS ACIDOPHILUS TAB PO SCH ×2 (09:38→22:04)
[2016-11-01] MEDS: METOPROLOL TARTRATE 50 MG TAB PEG SCH ×2 (09:38→22:04)
[2016-11-01] MEDS: FLUoxetine HCL 10 MG CAP PO SCH (09:38)
[2016-11-01] MEDS: LANSOPRAZOLE SOLUTAB 30 MG TAB NG SCH ×2 (09:38→22:04)
[2016-11-01] MEDS: predniSONE 20 MG TAB PEG SCH (09:38)
[2016-11-01] MEDS: SENNOSIDES SYRUP 8.8 MG/5 ML CUP PO SCH (09:39)
[2016-11-01] MEDS: SODIUM CHLORIDE 0.9% FLUSH 10 ML FLUSH IV FLUSH SCH ×2 (09:44→22:05)
[2016-11-01] MEDS: LACTIC ACID (AMMONIUM LACTATE) 12% LOTION 225 GM BTL TOPICAL SCH ×2 (09:48→22:05)
[2016-11-01] MEDS: COLLAGENASE OINT 30 GM TUBE TOP SCH (09:48)
--- NOTE | 2016-11-01 12:41 | HHI.PR ---
Subjective Remarks Follow up for neuro-Behcets. The patient is awake, alert, nonverbal, nods head occasionally today. Denies any pain. Vitals stable, afebrile. No acute events overnight. Objective Vitals Vital Signs Date Time Temp Pulse Resp B/P Pulse Ox O2 Delivery O2 Flow Rate FiO2 11/01/16 08:21 96.1 86 18 113/77 11/01/16 04:00 95.9 83 20 112/77 95 11/01/16 00:00 97.0 71 18 113/74 100 10/31/16 20:00 97.3 76 20 117/76 99 10/31/16 16:47 97.7 89 16 115/74 96 10/31/16 13:03 97.5 72 16 109/72 99 I/O 10/31/16 10/31/16 10/31/16 11/01/16 11/01/16 11/01/16 07:00 15:00 23:00 07:00 15:00 23:00 Intake Total 400 ml Output Total 350 ml 400 ml 600 ml Balance 50 ml -400 ml -600 ml Tube Feeding 400 ml Output Urine Total 350 ml 400 ml 600 ml Stool Total 0 ml # Bowel Movements 2 Imaging None in the last 72 hours. Objective Remarks GENERAL: Well-nourished, well-developed middle aged male patient in [facility]. SKIN: Warm and dry. No rash. Right lateral malleolus with dressing in place, CDI. HEENT: Normocephalic. Atraumatic. Pupils equal and round. No scleral icterus. No injection or drainage. ENT: No nasal bleeding or discharge. Mucous membranes pink and moist. NECK: Supple. Trachea midline. CARDIOVASCULAR: Regular rate and rhythm. S1, S2 noted. No murmur appreciated. RESPIRATORY: No accessory muscle use. Clear to auscultation. Breath sounds equal bilaterally. GASTROINTESTINAL: Abdomen soft, non-tender, nondistended. Normoactive bowel sounds x4. Feeding tube in place. MUSCULOSKELETAL: No obvious deformities. Extremities without clubbing, cyanosis , or edema. NEUROLOGICAL: Awake and alert, nonverbal, nods head yes/no. Procedures 07/19/16 EGD with PEG tube placement 09/27/16 colonoscopy Medications and IVs Current Medications Medications (Trade) Dose Ordered Sig/Beau Route Start Time Stop Time Status Last Admin (Tylenol Supp) 650 mg Q6H PRN RECTAL 08/15/16 16:30 09/06/16 20:06 (PROzac) 10 mg DAILY PO 08/24/16 09:00 11/01/16 09:38 (Lovenox Inj) 40 mg Q24H SQ 09/02/16 09:00 Hold 09/25/16 08:30 (Zofran Liq) 4 mg Q6H PRN PEG 09/11/16 16:00 (Miralax) 17 gm DAILY PRN PEG 09/11/16 16:00 (Santyl Oint) 1 applic DAILY TOP 09/14/16 16:00 11/01/16 09:48 (D50w (Vial) Inj) 25 ml UNSCH PRN IV PUSH 09/25/16 16:15 (Glucagon Inj) 1 mg UNSCH PRN OTHER 09/25/16 16:15 (NovoLIN R SUPPLEMENTAL SCALE) 1 Q6H SQ 09/25/16 17:00 10/31/16 16:45 (Pill Splitter) 1 ea UNSCH PRN OTHER 09/26/16 09:00 (Prevacid Odt) 30 mg BID NG 09/30/16 10:15 11/01/16 09:38 ([place] 5-325 Mg) 1 tab Q4H PRN PEG 10/02/16 13:00 10/30/16 08:54 (Motrin Liq) 200 mg Q6H PRN PEG 10/07/16 01:00 10/19/16 23:27 (NS Flush) 2 ml UNSCH PRN IV FLUSH 10/09/16 10:00 10/13/16 12:27 (NS Flush) 2 ml BID IV FLUSH 10/09/16 21:00 11/01/16 09:44 Miscellaneous Information 1 Q361D XX 10/09/16 10:00 (Chlorhexidine 2% Cloth) 3 pack Taper DAILY@04 TOP 10/10/16 04:00 10/06/17 03:59 10/26/16 03:56 (Chlorhexidine 2% Cloth) 3 pack UNSCH PRN TOP 10/09/16 10:00 (Senna Liq) 8.8 mg DAILY PO 10/10/16 09:00 11/01/16 09:39 Non-Formulary Medication CHLORHEXIDINE GLUCONATE 0.12% 30... 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 (4) GI bleed ICD Code: K92.2 Status: Resolved (5) HCAP (healthcare-associated pneumonia) ICD Code: J18.9 Status: Resolved (6) UTI (urinary tract infection) ICD Code: N39.0 Status: Resolved (7) Leucocytosis ICD Code: D72.829 Status: Acute (8) Fever ICD Code: R50.9 Status: Acute (9) Effusion of hip joint ICD Code: M25.459 Status: Acute (10) Xeroderma ICD Code: Q80.9 Status: Acute Assessment and Plan 46-year-old male with history of neuro-Behet's diagnosed at [place], left frontal CVA, bedbound, nonverbal, mural thrombus, brain abscess, meningitis, hypertension, diabetes, initially presented for decreased oral intake over the past 23 days, and skin tear at the left upper extremity. 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 Dosage constant for [address] Garner who advised changing dose to 30 mg/day. Patient with hx of difficulty with decrease in steroid in the past, pt's taper may be extended. -New prednisone tapering dose initiated 10/30 Sinus tachycardia Lopressor 50 mg BID for rate control-monitor HR and BP keep MAP>65mmHg --response to sepsis, resolved. -Continue metoprolol 75 mg q 12 hrs. Xeroderma: -Lac-Hydrin ordered to be applied to legs and feet. GI bleed-resolved Continue with Protonix 40 -s/p EGD 09/25 no signs of active bleeding -S/p transfusion 3units PRBC overnight on 09/26 monitor H/H. -09/26 CT abdomen/pelvis showed no acute findings -Colonoscopy done on 09/27 with no active bleeding. S/P PEG placement Sepsis Persistent Leukocytosis Right upper lung pneumonia-resolved Sacral decubitus-colonized VRE, pseudomonas S/P hip aspiration by IR 10/11 s/p abx per ID (vancomycin and Zosyn) Pancultured 10/09 CT abdomen/pelvis 09/26: No acute findings Pertinent cultures 09/25 C-diff PCR negative 09/10/16 Wound culture from sacral decubitus: Pseudo-fluoresceins/[place], enterococcus faecalis, enterococcus faecium VRE 08/26/16 urine culture with Daphney parapsilosis 10/05 Blood culture-staph epi(possible contaminant) 10/11 hip aspiration culture with no growth -ID following Dr. Reyes -Ortho saw pt on 10/08/17, no further services since that consultation visit. -ID signed off case 10/18/16 -As pt is NPO, discontinued oral acetaminophen. Pt still has ordered for PEG and rectal acetaminophen. PROPHYLAXIS Prevacid 30mg BID for GI protection SCD for DVT prophylaxis, -Doppler US LE 10/06: No DVT -Doppler US UE 09/28: Occlusive superficial thrombosis in the left cephalic vein near the antecubital fossa. No DVT Problem Qualifiers (1) GI bleed: Qualified Code: K92.2 - Gastrointestinal hemorrhage, unspecified gastrointestinal hemorrhage type (2) UTI (urinary tract infection): Qualified Code: N30.00 - Acute cystitis without hematuria (3) Effusion of hip joint: Qualified Code: M25.459 - Effusion of hip joint, unspecified laterality Anita Cabrera PA-C November 01, 2016 12:41 Brittany Garner MD November 01, 2016 22:02
[2016-11-01 12:49] VITALS: BP 127/75; PULSE 90; RESP 20; TEMP 97.3; O2SAT 98
[2016-11-01 16:20] VITALS: BP 109/76; PULSE 90; RESP 18; TEMP 98.3; O2SAT 97
[2016-11-01 20:00] VITALS: BP 117/78; PULSE 83; RESP 20; TEMP 96; O2SAT 82
[2016-11-02] VITALS: BP 119/79; PULSE 99; RESP 20; TEMP 96.1; O2SAT 65
[2016-11-02] MEDS: CHLORHEXIDINE GLUCONATE 2 % 1 PACK (2 CLOTHS) TOP SCH (03:17)
[2016-11-02 04:00] VITALS: BP 114/75; PULSE 76; RESP 20; TEMP 97.4; O2SAT 99
[2016-11-02] MEDS: INSULIN NovoLIN REGULAR SUPPLEMENTAL SCALE SQ SCH ×4 (05:00→23:00)
[2016-11-02] MEDS: azaTHIOprine 50 MG TAB PO SCH ×2 (05:46→18:12)
[2016-11-02 08:19] VITALS: BP 104/78; PULSE 81; RESP 18; TEMP 96.7; O2SAT 100
[2016-11-02] MEDS: FLUoxetine HCL 10 MG CAP PO SCH (09:59)
[2016-11-02] MEDS: LANSOPRAZOLE SOLUTAB 30 MG TAB NG SCH ×2 (09:59→21:40)
[2016-11-02] MEDS: LACTOBACILLUS ACIDOPHILUS TAB PO SCH ×2 (09:59→21:40)
[2016-11-02] MEDS: predniSONE 20 MG TAB PEG SCH (09:59)
[2016-11-02] MEDS: METOPROLOL TARTRATE 50 MG TAB PEG SCH ×2 (09:59→21:40)
[2016-11-02] MEDS: SENNOSIDES SYRUP 8.8 MG/5 ML CUP PO SCH (09:59)
[2016-11-02] MEDS: LACTIC ACID (AMMONIUM LACTATE) 12% LOTION 225 GM BTL TOPICAL SCH ×2 (10:00→21:41)
[2016-11-02] MEDS: COLLAGENASE OINT 30 GM TUBE TOP SCH (10:00)
[2016-11-02] MEDS: SODIUM CHLORIDE 0.9% FLUSH 10 ML FLUSH IV FLUSH SCH ×2 (10:01→21:40)
[2016-11-02] MEDS: CHLORHEXIDINE GLUCONATE 0.12% OROPHARYNG SCH ×2 (10:02→18:15)
--- NOTE | 2016-11-02 10:06 | HHI.PR ---
Subjective Remarks Patient in bed. He is having more secretions today , will give one time levsin. He is satting well on room air at this time, however he was noted desatting last night. Will check CXR. Chronically ill. Objective Vitals Vital Signs Date Time Temp Pulse Resp B/P Pulse Ox O2 Delivery O2 Flow Rate FiO2 11/02/16 08:19 96.7 81 18 104/78 100 11/02/16 04:00 97.4 76 20 114/75 99 11/02/16 00:00 96.1 99 20 119/79 65 11/01/16 20:00 96.0 83 20 117/78 82 11/01/16 16:20 98.3 90 18 109/76 97 11/01/16 12:49 97.3 90 20 127/75 98 I/O 11/01/16 11/01/16 11/01/16 11/02/16 11/02/16 11/02/16 06:59 14:59 22:59 06:59 14:59 22:59 Intake Total 0 ml 480 ml Output Total 600 ml 1000 ml 200 ml Balance -600 ml -1000 ml 280 ml Intake Oral 0 ml Tube Feeding 280 ml Tube Irrigant 200 ml Output Urine Total 600 ml 1000 ml 200 ml Imaging Last Impressions Chest X-Ray 10/16/16 0000 Signed Impressions: Service Date/Time: Monday, October 17, 2016 00:09 - CONCLUSION: No acute pulmonary infiltrates. Kel Gay MD Hip Aspiration/Injection 10/08/16 0000 Signed Impressions: Service Date/Time: Tuesday, October 11, 2016 13:41 - CONCLUSION: Uncomplicated aspiration as above. Minimal fluid on the right. No identifiable fluid on the left Clayton Max MD Lower Extremity Ultrasound 10/06/16 0000 Signed Impressions: Service Date/Time: September 17:29 - CONCLUSION: Normal examination. Josafat Meyer MD CT Angiography 10/06/16 0000 Signed Impressions: Service Date/Time: September 20:31 - CONCLUSION: Minimal right upper lobe infiltrate and basilar atelectasis. No evidence of pulmonary embolism.. Josafat Meyer MD Abdomen/Pelvis CT 10/06/16 0000 Signed Impressions: Service Date/Time: September 20:31 - CONCLUSION: No evidence of pelvic abscess. Josafat Meyer MD Upper Extremity Ultrasound 09/28/16 Signed Impressions: Service Date/Time: Wednesday, September 28, 2016 19:15 - CONCLUSION: 1. Occlusive superficial thrombosis in the left cephalic vein near the antecubital fossa. No deep venous thrombosis. Sumit Bourgeois MD Renal Ultrasound 08/28/16 Signed Impressions: Service Date/Time: Sunday, August 28, 2016 20:03 - CONCLUSION: Mild increased echotexture of both kidneys. Baldev Vu MD Lumbar Puncture Fluoroscopy 08/17/16 Signed Impressions: Service Date/Time: Wednesday, August 17, 2016 12:26 - CONCLUSION: Uncomplicated fluoroscopically guided lumbar puncture. Vishal Beckford Jr., MD Brain MRI 08/17/16 Signed Impressions: Service Date/Time: Wednesday, August 17, 2016 13:28 - CONCLUSION: Remote long-standing areas of abnormality in the brainstem and middle cerebellar peduncle consistent with remote infarcts or contusion. No acute intracranial abnormality. Chacho Bright MD Abdomen X-Ray 08/17/16 Signed Impressions: Service Date/Time: Wednesday, August 17, 2016 13:02 - CONCLUSION: No evidence of obstruction. No MRI incompatible foreign body is identified. Chacho Bright MD Head CT 08/16/16 0000 Signed Impressions: Service Date/Time: Tuesday, August 16, 2016 09:55 - CONCLUSION: Chronic ischemic changes left frontal lobe possibly from evidence of previous ventriculostomy placement, unchanged. No acute intracranial abnormality. Gen Potter MD Modified Barium Swallow 08/15/16 0000 Signed Impressions: Service Date/Time: Monday, August 15, 2016 00:00 - CONCLUSION: See report above and speech pathology report Chacho Bright MD Objective Remarks GENERAL: Pleasant, unfortunate young 46 yo AA male, chronically ill, in no apparent distress. Can nod yes/no to questions. SKIN: Sacral partial skin loss. Left upper back and medial antecubital area with skin tears. Wounds appear clean. Dried wound on the left wrist. CARDIOVASCULAR: Normal rate and regular rhythm without murmurs, gallops, or rubs. RESPIRATORY: Poor respiratory effort. Breath sounds equal and clear to auscultation bilaterally. GASTROINTESTINAL: Abdomen soft, non-distended. Normal active bowel sounds MUSCULOSKELETAL: Extremities without some evidence of contractures. NEURO: Patient is aphasic, can nod yes or no to questions. Follow commands. Generalized weakness. Right hemiparesis from previous stroke. PSYCH: Flattened affect. 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 (4) GI bleed ICD Code: K92.2 Status: Resolved (5) HCAP (healthcare-associated pneumonia) ICD Code: J18.9 Status: Resolved (6) UTI (urinary tract infection) ICD Code: N39.0 Status: Resolved (7) Leucocytosis ICD Code: D72.829 Status: Acute (8) Fever ICD Code: R50.9 Status: Acute (9) Effusion of hip joint ICD Code: M25.459 Status: Acute (10) Xeroderma ICD Code: Q80.9 Status: Acute Assessment and Plan 46-year-old male with history of neuro-Behcet's diagnosed at [facility], left frontal CVA, bedbound, nonverbal, mural thrombus, history of brain abscess, meningitis, hypertension, diabetes, presents for decreased oral intake 23 days prior to admission, and skin tear at the left upper extremity and upper back. According to the patient's , he has been having a declining course. 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 -09/26 CT abdomen/pelvis showed no acute findings -Colonoscopy done on 09/27 with no active bleeding. S/P PEG placement Sepsis Persistent Leukocytosis Right upper lung pneumonia-resolved Sacral decubitus-colonized VRE, pseudomonas S/P hip aspiration by IR 10/11 Copious secretions noted 11/02/ Will give levsion. Will check CXR. Monitor VS . He was noted desattign 11/01 night s/p abx per ID (vancomycin and Zosyn) Pancultured 10/09 CT abdomen/pelvis 09/26: No acute findings Pertinent cultures 09/25 C-diff PCR negative 09/10/16 Wound culture from sacral decubitus: Pseudo-fluoresceins/[place], enterococcus faecalis, enterococcus faecium VRE 08/26/16 urine culture with Daphney parapsilosis ID following Dr. Reyes Blood culture-staph epi(possible contaminant) on 10/05 FF fluid studies from hip aspiration Ortho is following PROPHYLAXIS Prevacid 30mg BID for GI protection SCD for DVT prophylaxis, -Doppler US LE 10/06: No DVT -Doppler US UE 09/28: Occlusive superficial thrombosis in the left cephalic vein near the antecubital fossa. No DVT Discussed with the nurse Problem Qualifiers (1) GI bleed: Qualified Code: K92.2 - Gastrointestinal hemorrhage, unspecified gastrointestinal hemorrhage type (2) UTI (urinary tract infection): Qualified Code: N30.00 - Acute cystitis without hematuria (3) Effusion of hip joint: Qualified Code: M25.459 - Effusion of hip joint, unspecified laterality Brittany Garner MD November 02, 2016 10:06
[2016-11-02 12:06] VITALS: BP 95/63; PULSE 74; RESP 18; TEMP 98; O2SAT 98
--- NOTE | 2016-11-02 15:24 | RADRPT ---
EXAM DATE/TIME: 11/02/2016 14:47 [facility] COMPARISON: CHEST SINGLE AP, October 17, 2016, 0:09. INDICATIONS : Cough. MEDICAL HISTORY : Stroke. Cardiovascular disease. SURGICAL HISTORY : None. ENCOUNTER: Subsequent ACUITY: 3 weeks PAIN SCORE: 0/10 LOCATION: Bilateral chest FINDINGS: A single view of the chest demonstrates the lungs to be symmetrically aerated without evidence of mas s, infiltrate or effusion. The cardiomediastinal contours are unremarkable. Osseous structures are intact. CONCLUSION: No acute disease. Gen Potter MD on November 02, 2016 at 15:21 Board Certified Radiologist. This report was verified electronically.
[2016-11-02 16:41] VITALS: BP 118/78; PULSE 91; RESP 18; TEMP 96.5; O2SAT 99
[2016-11-02 21:22] VITALS: BP 128/81; PULSE 87; RESP 19; TEMP 95.8; O2SAT 97
[2016-11-03 01:13] VITALS: BP 112/74; PULSE 76; RESP 19; TEMP 96.6; O2SAT 97
[2016-11-03] MEDS: CHLORHEXIDINE GLUCONATE 2 % 1 PACK (2 CLOTHS) TOP SCH (04:00)
[2016-11-03] MEDS: INSULIN NovoLIN REGULAR SUPPLEMENTAL SCALE SQ SCH ×4 (05:00→22:33)
[2016-11-03] MEDS: azaTHIOprine 50 MG TAB PO SCH ×2 (05:20→16:39)
[2016-11-03 06:17] VITALS: BP 106/71; PULSE 94; RESP 19; TEMP 96.4; O2SAT 99
[2016-11-03 08:32] VITALS: BP 107/65; PULSE 96; RESP 18; TEMP 97.1; O2SAT 97
[2016-11-03] MEDS: FLUoxetine HCL 10 MG CAP PO SCH (09:00)
[2016-11-03] MEDS: CHLORHEXIDINE GLUCONATE 0.12% OROPHARYNG SCH ×2 (09:00→18:00)
[2016-11-03] MEDS: LANSOPRAZOLE SOLUTAB 30 MG TAB NG SCH ×2 (09:00→21:59)
[2016-11-03] MEDS: SODIUM CHLORIDE 0.9% FLUSH 10 ML FLUSH IV FLUSH SCH ×2 (09:00→22:00)
[2016-11-03] MEDS: COLLAGENASE OINT 30 GM TUBE TOP SCH (09:00)
[2016-11-03] MEDS: METOPROLOL TARTRATE 50 MG TAB PEG SCH ×2 (09:00→21:59)
[2016-11-03] MEDS: SENNOSIDES SYRUP 8.8 MG/5 ML CUP PO SCH (09:00)
[2016-11-03] MEDS: LACTOBACILLUS ACIDOPHILUS TAB PO SCH ×2 (09:00→21:59)
[2016-11-03] MEDS: predniSONE 20 MG TAB PEG SCH (09:00)
[2016-11-03] MEDS: LACTIC ACID (AMMONIUM LACTATE) 12% LOTION 225 GM BTL TOPICAL SCH ×2 (09:00→22:00)
[2016-11-03 12:00] VITALS: BP 114/71; PULSE 91; RESP 18; TEMP 98.1; O2SAT 99
--- NOTE | 2016-11-03 13:02 | HHI.PR ---
Subjective Remarks Follow up for neuro-Behcets. The patient is awake, alert, nonverbal, did not nod appropiate today to questions. Secretions still noted. Does not appear in any distress or pain. Vitals stable, afebrile Objective Vitals Vital Signs Date Time Temp Pulse Resp B/P Pulse Ox O2 Delivery O2 Flow Rate FiO2 11/03/16 08:32 97.1 96 18 107/65 97 11/03/16 06:17 96.4 94 19 106/71 99 11/03/16 01:13 96.6 76 19 112/74 97 11/02/16 21:22 95.8 87 19 128/81 97 11/02/16 16:41 96.5 91 18 118/78 99 I/O 11/02/16 11/02/16 11/02/16 11/03/16 11/03/16 11/03/16 07:00 15:00 23:00 07:00 15:00 23:00 Intake Total 480 ml 1212 ml Output Total 200 ml 150 ml 500 ml Balance 280 ml -150 ml 712 ml Tube Feeding 280 ml 612 ml Tube Irrigant 200 ml Other 600 ml Output Urine Total 200 ml 150 ml 500 ml Objective Remarks GENERAL: Well-nourished, well-developed middle aged male patient in [facility]. SKIN: Warm and dry. No rash. Right lateral malleolus with dressing in place, CDI. HEENT: Normocephalic. Atraumatic. Pupils equal and round. No scleral icterus. No injection or drainage. ENT: No nasal bleeding or discharge. Mucous membranes pink and moist. NECK: Supple. Trachea midline. CARDIOVASCULAR: Regular rate and rhythm. S1, S2 noted. 3/6 murmur appreciated. RESPIRATORY: No accessory muscle use. Clear to auscultation. Breath sounds equal bilaterally. GASTROINTESTINAL: Abdomen soft, non-tender, nondistended. Normoactive bowel sounds x4. Feeding tube in place. [place]ign[place] in place MUSCULOSKELETAL: No obvious deformities. Extremities without clubbing, cyanosis , or edema. NEUROLOGICAL: Awake and alert, nonverbal, nods head yes/no at times. Procedures 07/19/16 EGD with PEG tube placement 09/27/16 colonoscopy Medications and IVs Current Medications Medications (Trade) Dose Ordered Sig/Beua Route Start Time Stop Time Status Last Admin (Tylenol Supp) 650 mg Q6H PRN RECTAL 08/15/16 16:30 09/06/16 20:06 (PROzac) 10 mg DAILY PO 08/24/16 09:00 11/02/16 09:59 (Lovenox Inj) 40 mg Q24H SQ 09/02/16 09:00 Hold 09/25/16 08:30 (Zofran Liq) 4 mg Q6H PRN PEG 09/11/16 16:00 (Miralax) 17 gm DAILY PRN PEG 09/11/16 16:00 (Santyl Oint) 1 applic DAILY TOP 09/14/16 16:00 11/02/16 10:00 (D50w (Vial) Inj) 25 ml UNSCH PRN IV PUSH 09/25/16 16:15 (Glucagon Inj) 1 mg UNSCH PRN OTHER 09/25/16 16:15 (NovoLIN R SUPPLEMENTAL SCALE) 1 Q6H SQ 09/25/16 17:00 10/31/16 16:45 (Pill Splitter) 1 ea UNSCH PRN OTHER 09/26/16 09:00 (Prevacid Odt) 30 mg BID NG 09/30/16 10:15 11/02/16 21:40 ([place] 5-325 Mg) 1 tab Q4H PRN PEG 10/02/16 13:00 10/30/16 08:54 (Motrin Liq) 200 mg Q6H PRN PEG 10/07/16 01:00 10/19/16 23:27 (NS Flush) 2 ml UNSCH PRN IV FLUSH 10/09/16 10:00 10/13/16 12:27 (NS Flush) 2 ml BID IV FLUSH 10/09/16 21:00 11/02/16 21:40 Miscellaneous Information 1 Q361D XX 10/09/16 10:00 (Chlorhexidine 2% Cloth) Taper DAILY@04 TOP 10/10/16 04:00 10/06/17 03:59 10/26/16 03:56 (Chlorhexidine 2% Cloth) 3 pack UNSCH PRN TOP 10/09/16 10:00 (Senna Liq) 8.8 mg DAILY PO 10/10/16 09:00 11/02/16 09:59 Non-Formulary Medication CHLORHEXIDINE GLUCONATE 0.12% 30... BIDPC OROPHARYNG 10/17/16 20:00 11/02/16 18:15 (Imuran) 50 mg BID@06,18 PO 10/18/16 06:00 11/03/16 05:20 (Lactinex) 1 tab Q12HR PO 10/28/16 15:00 11/17/16 14:59 11/02/16 21:40 (Deltasone) 30 mg DAILY PEG 10/30/16 09:00 11/02/16 09:59 (Lopressor) 75 mg Q12HR PEG 10/29/16 21:00 11/02/16 21:40 (Chapstick) 1 applic UNSCH PRN TOPICAL 10/29/16 19:30 11/01/16 05:10 (Lac-Hydrin 12% Lotion) 1 applic BID TOPICAL 10/30/16 21:00 11/02/16 21:41 (Levsin Liq) 0.125 mg DAILY PRN PO 11/02/16 14:15 11/02/16 15:53 A/P Problem List: (1) Sepsis ICD Code: A41.9 Status: Acute (2) Encephalopathy ICD Code: G93.40 Status: Resolved (3) 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 (4) GI bleed ICD Code: K92.2 Status: Resolved (5) HCAP (healthcare-associated pneumonia) ICD Code: J18.9 Status: Resolved (6) UTI (urinary tract infection) ICD Code: N39.0 Status: Resolved (7) Leucocytosis ICD Code: D72.829 Status: Acute (8) Fever ICD Code: R50.9 Status: Resolved (9) Effusion of hip joint ICD Code: M25.459 Status: Acute (10) Xeroderma ICD Code: Q80.9 Status: Acute Assessment and Plan 46-year-old male with history of neuro-Behcet's diagnosed at [place], left frontal CVA, bedbound, nonverbal, mural thrombus, history of brain abscess, meningitis, hypertension, diabetes, presents for decreased oral intake 23 days prior to admission, and skin tear at the left upper extremity and upper back. According to the patient's , he has been having a declining course. 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 Encephalopathy H/O meningitis Left frontal CVA Monitor neuro status and avoid sedatives -Neurology ff- recommended Long steroid taper EEG 10/09- mild- mod encephalopathy -On Prozac 10mg daily Sinus tachycardia, resolved Lopressor 50 mg BID for rate control-monitor HR and BP keep MAP>65mmHg GI bleed-resolved Continue with Protonix 40 -s/p EGD 09/25 no signs of active bleeding -S/p transfusion 3units PRBC overnight on 09/26 monitor H/H. -09/26 CT abdomen/pelvis showed no acute findings -Colonoscopy done on 09/27 with no active bleeding. S/P PEG placement Sepsis Persistent Leukocytosis Right upper lung pneumonia-resolved Sacral decubitus-colonized VRE, pseudomonas S/P hip aspiration by IR 10/11 Copious secretions noted 11/02/ Will give levsion. Will check CXR. Monitor VS . He was noted desatting 11/01 night Chest xray unremarkable, secretions clear not as copious s/p abx per ID (vancomycin and Zosyn) Pancultured 10/09 CT abdomen/pelvis 09/26: No acute findings Pertinent cultures 09/25 C-diff PCR negative 09/10/16 Wound culture from sacral decubitus: Pseudo-fluoresceins/[place], enterococcus faecalis, enterococcus faecium VRE 08/26/16 urine culture with Daphney parapsilosis ID has signed off Blood culture-staph epi(possible contaminant) on 10/05 FF fluid studies from hip aspiration, no growth -Labs in AM PROPHYLAXIS Prevacid 30mg BID for GI protection SCD for DVT prophylaxis, -Doppler US LE 10/06: No DVT -Doppler US UE 09/28: Occlusive superficial thrombosis in the left cephalic vein near the antecubital fossa. No DVT Discharge Planning Pending medicare for placement Problem Qualifiers (1) GI bleed: Qualified Code: K92.2 - Gastrointestinal hemorrhage, unspecified gastrointestinal hemorrhage type (2) UTI (urinary tract infection): Qualified Code: N30.00 - Acute cystitis without hematuria (3) Effusion of hip joint: Qualified Code: M25.459 - Effusion of hip joint, unspecified laterality Nora Kimball November 03, 2016 13:02 Brittany Garner MD November 03, 2016 13:21
[2016-11-03 16:00] VITALS: BP 110/66; PULSE 124; RESP 18; TEMP 98.8; O2SAT 99
[2016-11-03 20:57] VITALS: BP 117/84; PULSE 110; RESP 20; TEMP 95.9; O2SAT 100
[2016-11-04 00:46] VITALS: BP 98/80; PULSE 78; RESP 20; TEMP 96.5; O2SAT 95
[2016-11-04] MEDS: CHLORHEXIDINE GLUCONATE 2 % 1 PACK (2 CLOTHS) TOP SCH (03:51)
[2016-11-04] MEDS: INSULIN NovoLIN REGULAR SUPPLEMENTAL SCALE SQ SCH ×4 (05:00→22:49)
[2016-11-04] MEDS: azaTHIOprine 50 MG TAB PO SCH ×2 (05:40→17:09)
[2016-11-04 06:05] VITALS: BP 113/78; PULSE 95; RESP 20; TEMP 97.3; O2SAT 99
[2016-11-04 07:30] LABS: AUTOMATED NEUTROPHIL # 7.8 TH/MM3 (1.8-7.7); BASOPHIL % 0.3 % (0.0-2.0); EOSINOPHIL # 0.1 TH/MM3 (0-0.4); EOSINOPHIL % 0.7 % (0.0-4.0); HEMATOCRIT 36.1 % (39.0-51.0); HEMOGLOBIN 11.4 GM/DL (13.0-17.0); LYMPH % 17.4 % (9.0-44.0); LYMPHOCYTE # 1.8 TH/MM3 (1.0-4.8); MEAN CELL VOLUME 89.7 FL (80.0-100.0); MEAN CORPUSCULAR HEMOGLOBIN 28.3 PG (27.0-34.0); MEAN CORPUSCULAR HGB CONC 31.5 % (32.0-36.0); MEAN PLATELET VOLUME 9.8 FL (7.0-11.0); MONO % 6.2 % (0.0-8.0); MONOCYTE # 0.6 TH/MM3 (0-0.9); NEUT % 75.4 % (16.0-70.0); PLATELET COUNT 348 TH/MM3 (150-450); RED BLOOD COUNT 4.02 MIL/MM3 (4.50-5.90); RED CELL DISTRIBUTION WIDTH 20.3 % (11.6-17.2); WHITE BLOOD COUNT 10.3 TH/MM3 (4.0-11.0)
[2016-11-04 07:58] LABS: CREATININE 0.62 MG/DL (0.60-1.30)
[2016-11-04 08:00] LABS: BICARBONATE 30.7 MEQ/L (21.0-32.0); CALCIUM 9.3 MG/DL (8.5-10.1)
[2016-11-04 08:26] VITALS: BP 120/78; PULSE 117; RESP 18; TEMP 97.7; O2SAT 95
[2016-11-04] MEDS: SENNOSIDES SYRUP 8.8 MG/5 ML CUP PO SCH (08:35)
[2016-11-04] MEDS: LACTOBACILLUS ACIDOPHILUS TAB PO SCH ×2 (08:36→21:16)
[2016-11-04] MEDS: LANSOPRAZOLE SOLUTAB 30 MG TAB NG SCH ×2 (08:36→21:15)
[2016-11-04] MEDS: FLUoxetine HCL 10 MG CAP PO SCH (08:36)
[2016-11-04] MEDS: predniSONE 20 MG TAB PEG SCH (08:36)
[2016-11-04] MEDS: METOPROLOL TARTRATE 50 MG TAB PEG SCH ×2 (08:36→21:15)
[2016-11-04] MEDS: LACTIC ACID (AMMONIUM LACTATE) 12% LOTION 225 GM BTL TOPICAL SCH (08:43)
[2016-11-04] MEDS: COLLAGENASE OINT 30 GM TUBE TOP SCH (08:43)
[2016-11-04] MEDS: SODIUM CHLORIDE 0.9% FLUSH 10 ML FLUSH IV FLUSH SCH ×2 (08:43→21:17)
[2016-11-04 12:00] VITALS: BP 118/75; PULSE 91; RESP 18; TEMP 96.8; O2SAT 98
--- NOTE | 2016-11-04 12:39 | HHI.PR ---
Subjective Remarks Follow up for neuro-Behcets. The patient is awake, alert, nonverbal,he did nod appropiate today to questions. Denies any chest pain or SOB. Secretions appear to be much better. Does not appear in any distress or pain. Vitals stable, afebrile Objective Vitals Vital Signs Date Time Temp Pulse Resp B/P Pulse Ox O2 Delivery O2 Flow Rate FiO2 11/04/16 08:26 97.7 117 18 120/78 95 11/04/16 06:05 97.3 95 20 113/78 99 11/04/16 00:46 96.5 78 20 98/80 95 11/03/16 20:57 95.9 110 20 117/84 100 11/03/16 16:00 98.8 124 18 110/66 99 I/O 11/03/16 11/03/16 11/03/16 11/04/16 11/04/16 11/04/16 07:00 15:00 23:00 07:00 15:00 23:00 Intake Total 1212 ml 1370 ml Output Total 500 ml 750 ml 250 ml Balance 712 ml -750 ml 1120 ml Tube Feeding 612 ml 770 ml Other 600 ml 600 ml Output Urine Total 500 ml 750 ml 250 ml # Bowel Movements 2 Result Diagram: 11/04/16 0636 11/04/16 0636 Imaging Last Impressions Chest X-Ray 11/02/16 0000 Signed Impressions: Service Date/Time: Wednesday, November 02, 2016 14:47 - CONCLUSION: No acute disease. Gen Potter MD Hip Aspiration/Injection 10/08/16 0000 Signed Impressions: Service Date/Time: Tuesday, October 11, 2016 13:41 - CONCLUSION: Uncomplicated aspiration as above. Minimal fluid on the right. No identifiable fluid on the left Clayton Max MD Lower Extremity Ultrasound 10/06/16 0000 Signed Impressions: Service Date/Time: September 17:29 - CONCLUSION: Normal examination. Josafat Meyer MD CT Angiography 10/06/16 0000 Signed Impressions: Service Date/Time: September 20:31 - CONCLUSION: Minimal right upper lobe infiltrate and basilar atelectasis. No evidence of pulmonary embolism.. Josafat Meyer MD Abdomen/Pelvis CT 4/13/17 0000 Signed Impressions: Service Date/Time: September 20:31 - CONCLUSION: No evidence of pelvic abscess. Josafat Meyer MD Upper Extremity Ultrasound 09/28/16 Signed Impressions: Service Date/Time: Wednesday, September 28, 2016 19:15 - CONCLUSION: 1. Occlusive superficial thrombosis in the left cephalic vein near the antecubital fossa. No deep venous thrombosis. Sumit Bourgeois MD Renal Ultrasound 08/28/16 Signed Impressions: Service Date/Time: Sunday, August 28, 2016 20:03 - CONCLUSION: Mild increased echotexture of both kidneys. Baldev Vu MD Lumbar Puncture Fluoroscopy 08/17/16 Signed Impressions: Service Date/Time: Wednesday, August 17, 2016 12:26 - CONCLUSION: Uncomplicated fluoroscopically guided lumbar puncture. Vishal Beckford Jr., MD Brain MRI 08/17/16 Signed Impressions: Service Date/Time: Wednesday, August 17, 2016 13:28 - CONCLUSION: Remote long-standing areas of abnormality in the brainstem and middle cerebellar peduncle consistent with remote infarcts or contusion. No acute intracranial abnormality. Chacho Bright MD Abdomen X-Ray 08/17/16 Signed Impressions: Service Date/Time: Wednesday, August 17, 2016 13:02 - CONCLUSION: No evidence of obstruction. No MRI incompatible foreign body is identified. Chacho Bright MD Head CT 08/16/16 Signed Impressions: Service Date/Time: Tuesday, August 16, 2016 09:55 - CONCLUSION: Chronic ischemic changes left frontal lobe possibly from evidence of previous ventriculostomy placement, unchanged. No acute intracranial abnormality. Gen Potter MD Modified Barium Swallow 08/15/16 Signed Impressions: Service Date/Time: Monday, August 15, 2016 00:00 - CONCLUSION: See report above and speech pathology report Chacho Bright MD Objective Remarks GENERAL: Well-nourished, well-developed middle aged male patient in NAD. SKIN: Warm and dry. No rash. Right lateral malleolus with dressing in place, CDI. HEENT: Normocephalic. Atraumatic. Pupils equal and round. No scleral icterus. No injection or drainage. ENT: No nasal bleeding or discharge. Mucous membranes pink and moist. NECK: Supple. Trachea midline. CARDIOVASCULAR: Regular rate and rhythm. S1, S2 noted. 3/6 murmur appreciated. RESPIRATORY: No accessory muscle use. Clear to auscultation. Breath sounds equal bilaterally. GASTROINTESTINAL: Abdomen soft, non-tender, nondistended. Normoactive bowel sounds x4. Feeding tube in place. Dignishield in place MUSCULOSKELETAL: No obvious deformities. Extremities without clubbing, cyanosis , or edema. NEUROLOGICAL: Awake and alert, nonverbal, nods head yes/no at times. Procedures 07/19/16 EGD with PEG tube placement 09/27/16 colonoscopy Medications and IVs Current Medications Medications (Trade) Dose Ordered Sig/Beau Route Start Time Stop Time Status Last Admin (Tylenol Supp) 650 mg Q6H PRN RECTAL 08/15/16 16:30 09/06/16 20:06 (PROzac) 10 mg DAILY PO 08/24/16 09:00 11/04/16 08:36 (Lovenox Inj) 40 mg Q24H SQ 09/02/16 09:00 Hold 09/25/16 08:30 (Zofran Liq) 4 mg Q6H PRN PEG 09/11/16 16:00 (Miralax) 17 gm DAILY PRN PEG 09/11/16 16:00 (Santyl Oint) 1 applic DAILY TOP 09/14/16 16:00 11/04/16 08:43 (D50w (Vial) Inj) 25 ml UNSCH PRN IV PUSH 09/25/16 16:15 (Glucagon Inj) 1 mg UNSCH PRN OTHER 09/25/16 16:15 (NovoLIN R SUPPLEMENTAL SCALE) 1 Q6H SQ 09/25/16 17:00 11/03/16 16:24 (Pill Splitter) 1 ea UNSCH PRN OTHER 09/26/16 09:00 (Prevacid Odt) 30 mg BID NG 09/30/16 10:15 11/04/16 08:36 ([place] 5-325 Mg) 1 tab Q4H PRN PEG 10/02/16 13:00 10/30/16 08:54 (Motrin Liq) 200 mg Q6H PRN PEG 10/07/16 01:00 10/19/16 23:27 (NS Flush) 2 ml UNSCH PRN IV FLUSH 10/09/16 10:00 10/13/16 12:27 (NS Flush) 2 ml BID IV FLUSH 10/09/16 21:00 11/04/16 08:43 Miscellaneous Information 1 Q361D XX 10/09/16 10:00 (Chlorhexidine 2% Cloth) Taper DAILY@04 TOP 10/10/16 04:00 10/06/17 03:59 10/26/16 03:56 (Chlorhexidine 2% Cloth) 3 pack UNSCH PRN TOP 10/09/16 10:00 (Senna Liq) 8.8 mg DAILY PO 10/10/16 09:00 11/04/16 08:35 Non-Formulary Medication CHLORHEXIDINE GLUCONATE 0.12% 30... BIDPC OROPHARYNG 10/17/16 20:00 11/03/16 09:00 (Imuran) 50 mg BID@18 PO 10/18/16 06:00 11/04/16 05:40 (Lactinex) 1 tab Q12HR PO 10/28/16 15:00 11/17/16 14:59 11/04/16 08:36 (Deltasone) 30 mg DAILY PEG 10/30/16 09:00 11/04/16 08:36 (Lopressor) 75 mg Q12HR PEG 10/29/16 21:00 11/04/16 08:36 ([place]) 1 applic UNSCH PRN TOPICAL 10/29/16 19:30 11/01/16 05:10 (Lac-Hydrin 12% Lotion) 1 applic BID TOPICAL 10/30/16 21:00 11/04/16 08:43 (Levsin Liq) 0.125 mg DAILY PRN PO 11/02/16 14:15 11/02/16 15:53 A/P Problem List: (1) Sepsis ICD Code: A41.9 Status: Acute (2) Encephalopathy ICD Code: G93.40 Status: Resolved (3) 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 (4) GI bleed ICD Code: K92.2 Status: Resolved (5) HCAP (healthcare-associated pneumonia) ICD Code: J18.9 Status: Resolved (6) UTI (urinary tract infection) ICD Code: N39.0 Status: Resolved (7) Leucocytosis ICD Code: D72.829 Status: Acute (8) Fever ICD Code: R50.9 Status: Resolved (9) Effusion of hip joint ICD Code: M25.459 Status: Acute (10) Xeroderma ICD Code: Q80.9 Status: Acute Assessment and Plan 46-year-old male with 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 According to the patient's , he has been having a declining course. 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 Encephalopathy H/O meningitis Left frontal CVA Monitor neuro status and avoid sedatives -Neurology ff- recommended Long steroid taper EEG 10/09- mild- mod encephalopathy -On Prozac 10mg daily -EEG ordered by Dr. Dawson Sinus tachycardia, resolved Lopressor 50 mg BID for rate control-monitor HR and BP keep MAP>65mmHg GI bleed-resolved Continue with Protonix 40 -s/p EGD 09/25 no signs of active bleeding -S/p transfusion 3units PRBC overnight on 09/26 monitor H/H. -09/26 CT abdomen/pelvis showed no acute findings -Colonoscopy done on 09/27 with no active bleeding. S/P PEG placement Sepsis Persistent Leukocytosis Right upper lung pneumonia-resolved Sacral decubitus-colonized VRE, pseudomonas S/P hip aspiration by IR 10/11 Copious secretions noted 11/02/ Will give levsion. Will check CXR. Monitor VS . He was noted desatting 11/01 night Chest xray unremarkable, secretions clear not as copious s/p abx per ID (vancomycin and Zosyn) Pancultured 10/09 CT abdomen/pelvis 09/26: No acute findings Pertinent cultures 09/25 C-diff PCR negative 09/10/16 Wound culture from sacral decubitus: Pseudo-fluoresceins/Put[place], enterococcus faecalis, enterococcus faecium VRE 08/26/16 urine culture with Daphney parapsilosis ID has signed off Blood culture-staph epi(possible contaminant) on 10/05 FF fluid studies from hip aspiration, no growth -Labs in AM PROPHYLAXIS Prevacid 30mg BID for GI protection SCD for DVT prophylaxis, -Doppler US LE 10/06: No DVT -Doppler US UE 09/28: Occlusive superficial thrombosis in the left cephalic vein near the antecubital fossa. No DVT Discussed with Dr. Dawson Discharge Planning Pending medicare for placement, patient will be transferred to [facility] Problem Qualifiers (1) GI bleed: Qualified Code: K92.2 - Gastrointestinal hemorrhage, unspecified gastrointestinal hemorrhage type (2) UTI (urinary tract infection): Qualified Code: N30.00 - Acute cystitis without hematuria (3) Effusion of hip joint: Qualified Code: M25.459 - Effusion of hip joint, unspecified laterality Nora Kimball November 04, 2016 12:39
[2016-11-04 16:00] VITALS: BP 110/75; PULSE 75; RESP 18; TEMP 97.4; O2SAT 98
[2016-11-04 20:00] VITALS: BP 116/87; PULSE 81; RESP 21; TEMP 98.6; O2SAT 100
[2016-11-05] MEDS: CHLORHEXIDINE GLUCONATE 2 % 1 PACK (2 CLOTHS) TOP SCH (04:00)
[2016-11-05] MEDS: INSULIN NovoLIN REGULAR SUPPLEMENTAL SCALE SQ SCH ×2 (05:00→11:00)
[2016-11-05] MEDS: azaTHIOprine 50 MG TAB PO SCH (05:22)
[2016-11-05 08:00] VITALS: BP 108/67; PULSE 110; RESP 22; TEMP 96.2; O2SAT 100
[2016-11-05] MEDS: SODIUM CHLORIDE 0.9% FLUSH 10 ML FLUSH IV FLUSH SCH (09:00)
[2016-11-05] MEDS: LACTIC ACID (AMMONIUM LACTATE) 12% LOTION 225 GM BTL TOPICAL SCH ×2 (09:00→21:18)
[2016-11-05] MEDS: METOPROLOL TARTRATE 50 MG TAB PEG SCH ×2 (09:00→21:00)
[2016-11-05] MEDS: CHLORHEXIDINE GLUCONATE 0.12% OROPHARYNG SCH (09:00)
[2016-11-05] MEDS: COLLAGENASE OINT 30 GM TUBE TOP SCH (09:00)
--- NOTE | 2016-11-05 09:10 | MG ---
cc: CALVIN TRAVIS M.D. Lab No:[id number] Date: 11/05/2016 Age: 46 Sex: M Race: DATE OF : 1970 46 years old. REFERRING PHYSICIAN Heriberto. ROOM: [facility] HISTORY: With photic stimulation, this is a repeat study. The last EEG 10/09/2016 showed a significant artifact at least is showing some mild moderate encephalopathy. EEG is awake, drowsy asleep. MRI shows longstanding abnormalities, brain stem, no cerebral peduncle, remote infarcts versus contusion. 46-year-old man with fever, tremors, does not follow commands less awake. MEDICATIONS: 1. Levsin 2. Prednisone 3. <<0:45>> 4. Insulin The patient looking up at the ceiling per the detail technician, overall background predominately of 4 to 5 hertz, theta frequency showing some artifact. EKG does look to be in sinus rhythm. Overall symmetrical slowing. Photic stimulation without a significant or a minimal driving response. IMPRESSION Mild to moderate slowing at times various depending on the epoch. I do not appreciate any epileptic activity. Clinical correlation. MD CECILIA Hackett/dipika /8:23 AM /8:31 AM
[2016-11-05] MEDS: FLUoxetine HCL 10 MG CAP PO SCH (09:31)
[2016-11-05] MEDS: LANSOPRAZOLE SOLUTAB 30 MG TAB NG SCH (09:31)
[2016-11-05] MEDS: predniSONE 20 MG TAB PEG SCH (09:31)
[2016-11-05] MEDS: SENNOSIDES SYRUP 8.8 MG/5 ML CUP PO SCH (09:31)
[2016-11-05] MEDS: LACTOBACILLUS ACIDOPHILUS TAB PO SCH (09:31)
--- NOTE | 2016-11-05 14:42 | HHI.PR ---
Subjective Remarks 46-year-old rather unfortunate male with known history of brain abscess, frontal CVA, neuro Behcet's syndrome who was originally admitted to the hospital because of failure to thrive, decreased oral intake. Patient initial workup indicated sepsis with urinary tract infection. Patient was treated for that and was doing well. GI was consulted in which place a PEG tube for feeding for continued management and care. Patient does have sacral decubitus which was being managed by wound care nursing staff. Patient was in [facility] for long-term care because of unable to place the patient in a facility. Patient was doing well until nursing staff notified attending physician that patient had a rather significant lower GI bleed with copious bright red blood, maroon blood clots, melena. At that time patient was rather tachycardic up to 148, blood pressure was taken after that and found to be 94/69. Temperature 101.1. Because of those reasons patient was transferred to ICU for stabilization. Patient was given 1 L fluid bolus. Blood pressure was monitored closely. Workup was entertained for sepsis secondary to the fever. Workup did indicate significant leukocytosis, chest x-ray with right upper lung consolidation. GI was called by attending team and transferred to [facility] is being arranged for emergent endoscopy due to the acute GI bleed. GI was unable to reach family for consent. Patient did undergo endoscopy on 09/27 which colonoscopy showed small ulcer in the ascending colon. Patient hemoglobin was stabilized. Patient was transferred back to medical team on . Patient continued with management and the medical team until 10/09/16. When critical care was reconsulted because of increased somnolence, altered mental status secondary to underlying sepsis. Patient was transferred back to medical service on 10/11/16. Patient has remained on medical service since then undergone medical management. Palliative care has been following the patient, last time evaluated patient was on 10/31/16 in which they indicate that the patient is awake and alert answering yes no questions with upward and downward gaze. Indicated that he is a full code and remains aggressive management. She was transferred back down to [facility] for long-term care. Apparently since patient is not had any change in status. Objective Vitals Vital Signs Date Time Temp Pulse Resp B/P Pulse Ox O2 Delivery O2 Flow Rate FiO2 11/05/16 08:00 96.2 110 22 108/67 100 11/04/16 20:00 98.6 81 21 116/87 100 11/04/16 16:00 97.4 75 18 110/75 98 I/O 11/04/16 11/04/16 11/04/16 11/05/16 11/05/16 11/05/16 07:00 15:00 23:00 07:00 15:00 23:00 Intake Total 1370 ml 200 ml 910 ml Output Total 250 ml 800 ml 375 ml 675 ml Balance 1120 ml -800 ml -175 ml 235 ml IV Total 0 ml Tube Feeding 770 ml 510 ml Other 600 ml 200 ml 400 ml Output Urine Total 250 ml 800 ml 200 ml 300 ml Stool Total 125 ml Emesis 175 ml 250 ml # Bowel Movements 2 Result Diagram: 11/04/1663511/04/16635 Objective Remarks GENERAL: Well-developed, cachectic. Appears to be alert but nonverbal. Denies pain. Patient lying in position. HEENT: Head is normocephalic without any lesions or masses noted. Facial features are symmetric. Eyes: Extraocular muscles are intact. Conjunctivae were clear. NECK: Supple without any masses. Trachea midline no deviation. No JVD, CARDIAC: Regular rhythm, tachycardia noted. S1/S2 are heard. No murmurs gallops or rubs. LUNGS: Clear to auscultation bilaterally. No wheeze, rhonchi or rales. No use of accessory muscles on inspiration or expiration. ABDOMEN: Soft, nontender. Nondistended. Bowel sounds heard in all 4 quadrants. No organomegaly or masses. Negative rebound, negative guarding. PEG tube noted. EXTREMITIES: No edema, pulses are equal bilaterally. No cyanosis or clubbing Procedures 07/19/16 EGD with PEG tube placement 09/27/16 colonoscopy Urinary Catheter: No Vascular Central Line Catheter: No A/P Assessment and Plan Neuro-Behcet, history of frontal lobe CVA, encephalopathy, history of meningitis , chronic No new changes on imaging. Patient followed by neurology. Aphasic at baseline. Neurology following the patient Continue Imuran, prednisone EEG shows mild to moderate slowing at times of various depending on the epoch, there was no epileptic activity seen Continue PT/OT Palliative care following the patient and is still indicating the patient is making his own decisions, full code and full aggressive measures Sinus tachycardia. On Lopressor 75 mg every 12 hours as needed if blood pressure allows, will decrease to 50 mg twice daily TSH, free T3, free T4 colon were normal Melena, bright red blood in stool, resolved Status post transfusion, emergency transferred to [facility] hospital, emergent endoscopy GI evaluated and managed patient with emergent colonoscopy showing small ulcer in the colon Continue Prevacid Sepsis, multiple episodes, resolved at this time Patient does have rather significant coccyx decubitus wound: Wound culture with pseudo fluorescens/putida, group D enterococcus VRE which is sensitive to Zosyn. Patient did have one urine culture of Daphney parapsilosis, was treated with fluconazole for 10 days. --Patient had episode of diarrhea, C. difficile cultures performed which was negative. --Possible aseptic meningitis Infectious disease consulted and last seen the patient on 10/18/16, at that time it was indicated to observe off antibiotics. 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 Would benefit from long-term steroids Prerenal azotemia, resolved Continue IV fluids Continue monitor renal function Hypernatremia, resolved Continue free water flushes 200 cc every 4 hours Continue IV fluids Monitor sodium level Decreased oral intake and dysphagia on initial presentation Speech therapy following intermittently. S/P barium swallow. Patient with severe dysphagia. GI consulted and PEG tube was placed. Dietary recommending Glucerna 1.5 at 65 mL's an hour, tolerating well. Coccyx decubitus. Wound care nurse is following the patient for management Mood disorder Patient was evaluated by psychiatrist. Psychiatrist recommended Prozac Diabetes Glucose well controlled, patient still required 5 units of insulin in the last week. Discontinue Accu-Cheks and sliding scale insulin DVT Prophylaxis: Lovenox, TEDs/SCDs. Discharge Planning Case management for discharge planning. Ede Richardson November 05, 2016 14:41 Leticia Garrett MD November 05, 2016 22:50
[2016-11-05] MEDS: azaTHIOprine 50 MG TAB PEG SCH (17:55)
[2016-11-05 20:00] VITALS: BP 117/93; PULSE 107; RESP 15; TEMP 97.9; O2SAT 100
[2016-11-05] MEDS: LANSOPRAZOLE SOLUTAB 30 MG TAB PEG SCH (21:14)
[2016-11-05] MEDS: LACTOBACILLUS ACIDOPHILUS TAB PEG SCH (21:14)
[2016-11-06] MEDS: azaTHIOprine 50 MG TAB PEG SCH ×2 (05:58→18:58)
--- NOTE | 2016-11-06 08:48 | HHI.PR ---
Subjective Remarks Patient seen and examined today in follow-up for neuro Behcet's syndrome. No change in clinical status. Patient indicating that he does not have any new problems today with nodding his head yes and no. He is nonverbal Objective Vitals Vital Signs Date Time Temp Pulse Resp B/P Pulse Ox O2 Delivery O2 Flow Rate FiO2 11/05/16 20:00 97.9 107 15 117/93 100 I/O 11/05/16 11/05/16 11/05/16 11/06/16 11/06/16 11/06/16 07:00 15:00 23:00 07:00 15:00 23:00 Intake Total 910 ml 0 ml 200 ml 1000 ml Output Total 675 ml Balance 235 ml 0 ml 200 ml 1000 ml Intake Oral 0 ml 0 ml Tube Feeding 510 ml 600 ml Other 400 ml 200 ml 400 ml Output Urine Total 300 ml Stool Total 125 ml Emesis 250 ml # Voids 1 1 2 # Bowel Movements 1 0 1 Result Diagram: 11/04/1636 11/04/16635 Objective Remarks GENERAL: Well-developed, cachectic. Appears to be alert but nonverbal. Denies pain. Patient lying in position. HEENT: Head is normocephalic without any lesions or masses noted. Facial features are symmetric. Eyes: Extraocular muscles are intact. Conjunctivae were clear. NECK: Supple without any masses. Trachea midline no deviation. No JVD, CARDIAC: Regular rhythm, tachycardia noted. S1/S2 are heard. No murmurs gallops or rubs. LUNGS: Clear to auscultation bilaterally. No wheeze, rhonchi or rales. No use of accessory muscles on inspiration or expiration. ABDOMEN: Soft, nontender. Nondistended. Bowel sounds heard in all 4 quadrants. No organomegaly or masses. Negative rebound, negative guarding. PEG tube noted. EXTREMITIES: No edema, pulses are equal bilaterally. No cyanosis or clubbing Procedures 07/19/16 EGD with PEG tube placement 09/27/16 colonoscopy Urinary Catheter: No Vascular Central Line Catheter: No A/P Assessment and Plan Neuro-Behcet, history of frontal lobe CVA, encephalopathy, history of meningitis , chronic No new changes on imaging. Patient followed by neurology. Aphasic at baseline. Neurology following the patient Continue Imuran, prednisone EEG shows mild to moderate slowing at times of various depending on the epoch, there was no epileptic activity seen Continue PT/OT Palliative care following the patient and is still indicating the patient is making his own decisions, full code and full aggressive measures Sinus tachycardia. Chronic Lopressor 50 mg twice daily, decreased to 25 mg twice daily. Secondary to the patient having low blood pressure and medication not being given TSH, free T3, free T4 colon were normal Melena, bright red blood in stool, resolved Status post transfusion, emergency transferred to [facility] hospital, emergent endoscopy GI evaluated and managed patient with emergent colonoscopy showing small ulcer in the colon Continue Prevacid Sepsis, multiple episodes, resolved at this time Patient does have rather significant coccyx decubitus wound: Wound culture with pseudo fluorescens/putida, group D enterococcus VRE which is sensitive to Zosyn. Patient did have one urine culture of Daphney parapsilosis, was treated with fluconazole for 10 days. --Patient had episode of diarrhea, C. difficile cultures performed which was negative. --Possible aseptic meningitis Infectious disease consulted and last seen the patient on 10/18/16, at that time it was indicated to observe off antibiotics. 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 Would benefit from long-term steroids Prerenal azotemia, resolved Continue IV fluids Continue monitor renal function Hypernatremia, resolved Continue free water flushes 200 cc every 4 hours Continue IV fluids Monitor sodium level Decreased oral intake and dysphagia on initial presentation Speech therapy following intermittently. S/P barium swallow. Patient with severe dysphagia. GI consulted and PEG tube was placed. Dietary recommending Glucerna 1.5 at 65 mL's an hour, tolerating well. Coccyx decubitus. Wound care nurse is following the patient for management Mood disorder Patient was evaluated by psychiatrist. Psychiatrist recommended Prozac Diabetes Glucose well controlled, patient still required 5 units of insulin in the last week. Discontinued Accu-Cheks and sliding scale insulin DVT Prophylaxis: Lovenox, TEDs/SCDs. Discharge Planning Case management for discharge planning. Last documentation indicates that they' re awaiting Medicaid for placement Ede Richardson November 06, 2016 08:48
[2016-11-06] MEDS: METOPROLOL TARTRATE 50 MG TAB PEG SCH ×2 (09:00→10:37)
[2016-11-06 10:24] VITALS: BP 94/71; PULSE 94; RESP 16; TEMP 97.6; O2SAT 96
[2016-11-06] MEDS: FLUoxetine HCL LIQUID 20 MG/5 ML CUP PEG SCH (10:35)
[2016-11-06] MEDS: LACTOBACILLUS ACIDOPHILUS TAB PEG SCH ×2 (10:36→21:11)
[2016-11-06] MEDS: SENNOSIDES SYRUP 8.8 MG/5 ML CUP PEG SCH (10:36)
[2016-11-06] MEDS: LANSOPRAZOLE SOLUTAB 30 MG TAB PEG SCH ×2 (10:36→21:11)
[2016-11-06] MEDS: ENOXAPARIN SODIUM 40 MG/0.4 ML SYRINGE SQ SCH (10:36)
[2016-11-06] MEDS: predniSONE 20 MG TAB PEG SCH (10:37)
[2016-11-06] MEDS: LACTIC ACID (AMMONIUM LACTATE) 12% LOTION 225 GM BTL TOPICAL SCH ×2 (10:38→21:11)
[2016-11-06] MEDS: COLLAGENASE OINT 30 GM TUBE TOP SCH (10:46)
[2016-11-06 20:00] VITALS: BP 109/68; PULSE 98; RESP 20; TEMP 97.3; O2SAT 96
[2016-11-06] MEDS: METOPROLOL TARTRATE 25 MG TAB PEG SCH (20:58)
[2016-11-07] MEDS: azaTHIOprine 50 MG TAB PEG SCH ×2 (06:16→18:00)
[2016-11-07 08:48] VITALS: BP 120/94; PULSE 112; RESP 18; TEMP 97; O2SAT 99
[2016-11-07] MEDS: FLUoxetine HCL LIQUID 20 MG/5 ML CUP PEG SCH (10:02)
[2016-11-07] MEDS: SENNOSIDES SYRUP 8.8 MG/5 ML CUP PEG SCH (10:02)
[2016-11-07] MEDS: LANSOPRAZOLE SOLUTAB 30 MG TAB PEG SCH ×2 (10:02→21:02)
[2016-11-07] MEDS: LACTOBACILLUS ACIDOPHILUS TAB PEG SCH ×2 (10:02→21:02)
[2016-11-07] MEDS: METOPROLOL TARTRATE 25 MG TAB PEG SCH ×2 (10:03→21:02)
[2016-11-07] MEDS: predniSONE 20 MG TAB PEG SCH (10:08)
[2016-11-07] MEDS: ENOXAPARIN SODIUM 40 MG/0.4 ML SYRINGE SQ SCH (10:13)
[2016-11-07] MEDS: LACTIC ACID (AMMONIUM LACTATE) 12% LOTION 225 GM BTL TOPICAL SCH ×2 (10:14→21:02)
[2016-11-07] MEDS: COLLAGENASE OINT 30 GM TUBE TOP SCH (10:15)
--- NOTE | 2016-11-07 11:44 | HHI.PR ---
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 No change in clinical status at this time. Patient seen with wound care nurse in room. Objective Vitals Vital Signs Date Time Temp Pulse Resp B/P Pulse Ox O2 Delivery O2 Flow Rate FiO2 11/07/16 08:48 97.0 112 18 120/94 99 11/06/16 20:00 97.3 98 20 109/68 96 I/O 11/06/16 11/06/16 11/06/16 11/07/16 11/07/16 11/07/16 07:00 15:00 23:00 07:00 15:00 23:00 Intake Total 1000 ml 1985 ml 926 ml Output Total 0 ml 0 ml Balance 1000 ml 0 ml 1985 ml 926 ml 0 ml Oral Supplement 773 ml Tube Feeding 600 ml 512 ml 526 ml Tube Irrigant 200 ml 400 ml Other 400 ml 500 ml Tube Feeding Residual Discard 0 ml 0 ml # Voids 2 4 2 # Bowel Movements 1 1 0 Result Diagram: 11/04/1636 11/04/16 06 Objective Remarks GENERAL: Well-developed, cachectic. Appears to be alert but nonverbal. Denies pain. Patient lying in position. HEENT: Head is normocephalic without any lesions or masses noted. Facial features are symmetric. Eyes: Extraocular muscles are intact. Conjunctivae were clear. NECK: Supple without any masses. Trachea midline no deviation. No JVD, CARDIAC: Regular rhythm, tachycardia noted. S1/S2 are heard. No murmurs gallops or rubs. LUNGS: Clear to auscultation bilaterally. No wheeze, rhonchi or rales. No use of accessory muscles on inspiration or expiration. ABDOMEN: Soft, nontender. Nondistended. Bowel sounds heard in all 4 quadrants. No organomegaly or masses. Negative rebound, negative guarding. PEG tube noted. EXTREMITIES: No edema, pulses are equal bilaterally. No cyanosis or clubbing Procedures 07/19/16 EGD with PEG tube placement 09/27/16 colonoscopy Urinary Catheter: No Vascular Central Line Catheter: No A/P Assessment and Plan Neuro-Behcet, history of frontal lobe CVA, encephalopathy, history of meningitis , chronic No new changes on imaging. Patient followed by neurology. Aphasic at baseline. Neurology following the patient Continue Imuran, prednisone EEG shows mild to moderate slowing at times of various depending on the epoch, there was no epileptic activity seen Continue PT/OT Palliative care following the patient and is still indicating the patient is making his own decisions, full code and full aggressive measures Sinus tachycardia. Chronic Lopressor 25 mg twice daily. TSH, free T3, free T4 colon were normal Melena, bright red blood in stool, resolved Status post transfusion, emergency transferred to Main hospital, emergent endoscopy GI evaluated and managed patient with emergent colonoscopy showing small ulcer in the colon Continue Prevacid Sepsis, multiple episodes, resolved at this time Patient does have rather significant coccyx decubitus wound: Wound culture with pseudo fluorescens/putida, group D enterococcus VRE which is sensitive to Zosyn. Patient did have one urine culture of Daphney parapsilosis, was treated with fluconazole for 10 days. --Patient had episode of diarrhea, C. difficile cultures performed which was negative. --Possible aseptic meningitis Infectious disease consulted and last seen the patient on 10/18/16, at that time it was indicated to observe off antibiotics. 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 Would benefit from long-term steroids Prerenal azotemia, resolved Continue IV fluids Continue monitor renal function Hypernatremia, resolved Continue free water flushes 200 cc every 4 hours Continue IV fluids Monitor sodium level Decreased oral intake and dysphagia on initial presentation Speech therapy following intermittently. S/P barium swallow. Patient with severe dysphagia. GI consulted and PEG tube was placed. Dietary recommending Glucerna 1.5 at 65 mL's an hour, tolerating well. Coccyx decubitus. Wound care nurse is following the patient for management Wound care nurse recommending waiting specialty bed, do not have patient increase, recommended [facility] wound care Mood disorder Patient was evaluated by psychiatrist. Psychiatrist recommended Prozac Diabetes Glucose well controlled, patient still required 5 units of insulin in the last week. Discontinued Accu-Cheks and sliding scale insulin DVT Prophylaxis: Lovenox, TEDs/SCDs. Discharge Planning Case management for discharge planning. Last documentation indicates that they' re awaiting Medicaid for placement Ede Richardson November 07, 2016 11:44 Ede Richardson November 07, 2016 11:44
[2016-11-07 20:00] VITALS: BP 123/88; PULSE 84; RESP 21; TEMP 97.2; O2SAT 100
[2016-11-08] MEDS: azaTHIOprine 50 MG TAB PEG SCH ×2 (06:23→17:56)
[2016-11-08 08:00] VITALS: BP 125/75; PULSE 76; RESP 19; TEMP 98; O2SAT 93
[2016-11-08] MEDS: LACTIC ACID (AMMONIUM LACTATE) 12% LOTION 225 GM BTL TOPICAL SCH ×2 (09:00→20:20)
[2016-11-08] MEDS: COLLAGENASE OINT 30 GM TUBE TOP SCH (09:00)
[2016-11-08] MEDS: FLUoxetine HCL LIQUID 20 MG/5 ML CUP PEG SCH (10:08)
[2016-11-08] MEDS: SENNOSIDES SYRUP 8.8 MG/5 ML CUP PEG SCH (10:08)
[2016-11-08] MEDS: METOPROLOL TARTRATE 25 MG TAB PEG SCH ×2 (10:09→20:20)
[2016-11-08] MEDS: ENOXAPARIN SODIUM 40 MG/0.4 ML SYRINGE SQ SCH (10:09)
[2016-11-08] MEDS: LANSOPRAZOLE SOLUTAB 30 MG TAB PEG SCH ×2 (10:09→20:20)
[2016-11-08] MEDS: predniSONE 20 MG TAB PEG SCH (10:09)
[2016-11-08] MEDS: LACTOBACILLUS ACIDOPHILUS TAB PEG SCH ×2 (10:10→20:20)
[2016-11-08 10:14] VITALS: PULSE 107; O2SAT 96
--- NOTE | 2016-11-08 11:20 | HHI.PR ---
Subjective Remarks Follow-up for neuro Behet's syndrome. Patient has some secretions which BUSINESS ADMINISTRATION PROGRAM CHAIR is suctioning when I examine the patient. Patient is noted to have some drainage from his eyes; no other acute issues. Objective Vitals Vital Signs Date Time Temp Pulse Resp B/P Pulse Ox O2 Delivery O2 Flow Rate FiO2 11/08/16 10:14 107 96 11/08/16 08:00 98.0 76 19 125/75 93 11/07/16 20:00 97.2 84 21 123/88 100 I/O 11/07/16 11/07/16 11/07/16 11/08/16 11/08/16 11/08/16 07:00 15:00 23:00 07:00 15:00 23:00 Intake Total 926 ml 1999 ml 936 ml Output Total 0 ml Balance 926 ml 0 ml 1999 ml 936 ml Tube Feeding 526 ml 1199 ml 536 ml Tube Irrigant 400 ml 800 ml 400 ml Tube Feeding Residual Discard 0 ml # Voids 2 2 2 # Bowel Movements 0 Result Diagram: 11/04/1636 11/04/16 06 Objective Remarks GENERAL: Thin patient in no apparent distress. EYES: Thin white drainage noted from the right eye and a small amount noted at the medial aspect of the left eye. There is a mild area of injection over the inferior sclera of R eye. CARDIOVASCULAR: Tachycardic rate and regular rhythm. RESPIRATORY: CTAB, but patient has abnormal breathing which is chronic. GASTROINTESTINAL: Abdomen soft, non-tender, nondistended. NEUROLOGICAL: Awake and alert, but nonverbal. 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 Patient followed by neurology. Aphasic at baseline. Neurology following the patient Continue Imuran, prednisone EEG shows mild to moderate slowing at times of various depending on the epoch, there was no epileptic activity seen Continue PT/OT Palliative care following the patient and is still indicating the patient is making his own decisions, full code and full aggressive measures Sinus tachycardia: chronic Lopressor 25 mg twice daily. TSH, free T3, free T4 were normal Melena, bright red blood in stool: Resolved Status post transfusion, emergently transferred to [facility], emergent endoscopy GI evaluated and managed patient with emergent colonoscopy showing small ulcer in the colon Continue Prevacid Hemoglobin stable at 11.4 on 11/04. Sepsis, multiple episodes: Resolved at this time Patient does have rather significant coccyx decubitus wound: Wound culture with pseudo fluorescens/putida, group D enterococcus VRE which is sensitive to Zosyn. Patient did have one urine culture of Daphney parapsilosis, was treated with fluconazole for 10 days. --Patient had episode of diarrhea, C. difficile cultures performed which was negative. --Possible aseptic meningitis Infectious disease consulted and last seen the patient on 10/18/16, at that time it was indicated to observe off antibiotics. 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 Would benefit from long-term steroids Prerenal azotemia: Improved Continue IV fluids Continue to monitor renal function Hypernatremia: Resolved Continue free water flushes 200 cc every 4 hours Continue IV fluids Monitor sodium level Decreased oral intake and dysphagia on initial presentation Speech therapy following intermittently. S/P barium swallow. Patient with severe dysphagia. GI consulted and PEG tube was placed. Dietary recommending Glucerna 1.5 at 65 mL's an hour, tolerating well. Coccyx decubitus: Wound care nurse is following the patient for management Wound care nurse recommending waiting specialty bed, do not have patient increase, recommended Santyl wound care Mood disorder Patient was evaluated by psychiatrist. Psychiatrist recommended Prozac Diabetes Glucose well controlled, patient only required 5 units of insulin in the last week. Discontinued Accu-Cheks and sliding scale insulin Possible conjunctivitis: 11/08. Thin milky drainage from the eyes with some mild injection on the R. -Start Polytrim drops both eyes for 7 days. DVT Prophylaxis: Lovenox, TEDs/SCDs. Discharge Planning Awaiting Medicaid for placement. Problem Qualifiers (1) GI bleed: Qualified Code: K92.2 - Gastrointestinal hemorrhage, unspecified gastrointestinal hemorrhage type (2) UTI (urinary tract infection): Qualified Code: N30.00 - Acute cystitis without hematuria (3) Effusion of hip joint: Qualified Code: M25.459 - Effusion of hip joint, unspecified laterality Mari Talamantes November 08, 2016 11:20
[2016-11-08] MEDS: ACETAMINOPHEN/HYDROcodone 325 MG/5 MG TAB PEG PRN (15:56)
[2016-11-08 16:10] VITALS: PULSE 84; O2SAT 100
[2016-11-08] MEDS: POLYMYXIN/TRIMETHOPRIM OPHT SOLN 10 ML BTL EACH EYE SCH ×2 (16:42→20:20)
[2016-11-08 20:00] VITALS: BP 121/91; PULSE 83; RESP 21; TEMP 97.1; O2SAT 100
[2016-11-09] MEDS: POLYMYXIN/TRIMETHOPRIM OPHT SOLN 10 ML BTL EACH EYE SCH ×6 (00:07→22:39)
[2016-11-09] MEDS: azaTHIOprine 50 MG TAB PEG SCH ×2 (06:08→17:30)
[2016-11-09 08:00] VITALS: BP 120/78; PULSE 107; RESP 23; TEMP 97.5; O2SAT 98
[2016-11-09] MEDS: SENNOSIDES SYRUP 8.8 MG/5 ML CUP PEG SCH (08:30)
[2016-11-09] MEDS: LANSOPRAZOLE SOLUTAB 30 MG TAB PEG SCH ×2 (08:30→22:38)
[2016-11-09] MEDS: LACTOBACILLUS ACIDOPHILUS TAB PEG SCH ×2 (08:30→22:39)
[2016-11-09] MEDS: ENOXAPARIN SODIUM 40 MG/0.4 ML SYRINGE SQ SCH (08:30)
[2016-11-09] MEDS: predniSONE 20 MG TAB PEG SCH (08:31)
[2016-11-09] MEDS: METOPROLOL TARTRATE 25 MG TAB PEG SCH ×2 (08:31→21:00)
[2016-11-09] MEDS: FLUoxetine HCL LIQUID 20 MG/5 ML CUP PEG SCH (08:33)
[2016-11-09] MEDS: COLLAGENASE OINT 30 GM TUBE TOP SCH (08:36)
[2016-11-09] MEDS: HYOSCYAMINE SOLN 0.125 MG/ML 15 ML BTL PEG PRN (08:36)
--- NOTE | 2016-11-09 09:38 | HHI.PR ---
Subjective Remarks Follow-up for neuro Behet's syndrome. Patient admits to leg pain; his legs are folded up against him. I asked nurse to reposition legs. Objective Vitals Vital Signs Date Time Temp Pulse Resp B/P Pulse Ox O2 Delivery O2 Flow Rate FiO2 11/09/16 08:00 97.5 107 23 120/78 98 11/08/16 20:00 97.1 83 21 121/91 100 11/08/16 16:56 18 11/08/16 16:10 84 100 11/08/16 10:14 107 96 I/O 11/08/16 11/08/16 11/08/16 11/09/16 11/09/16 11/09/16 07:00 15:00 23:00 07:00 15:00 23:00 Intake Total 936 ml 1821 ml 933 ml Output Total 300 ml 400 ml 425 ml Balance 936 ml -300 ml 1421 ml 508 ml Tube Feeding 536 ml 1221 ml 533 ml Tube Irrigant 400 ml 600 ml 400 ml Output Urine Total 300 ml 400 ml 425 ml # Voids 2 # Bowel Movements 2 Objective Remarks GENERAL: Thin patient in no apparent distress. EYES: No active drainage from the eyes. No injection. CARDIOVASCULAR: Tachycardic rate and regular rhythm. RESPIRATORY: CTAB, but patient has abnormal breathing which is chronic. GASTROINTESTINAL: Abdomen soft, non-tender, nondistended. MUSCULOSKELETAL: Patient appears to have contractures of legs, unable to fully extend. NEUROLOGICAL: Awake and alert. Nods yes or no to questions. 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 Patient followed by neurology. Aphasic at baseline. Neurology following the patient Continue Imuran, prednisone EEG shows mild to moderate slowing at times of various depending on the epoch, there was no epileptic activity seen Continue PT/OT Palliative care following the patient and is still indicating the patient is making his own decisions, full code and full aggressive measures Sinus tachycardia: chronic Lopressor 25 mg twice daily. TSH, free T3, free T4 were normal Melena, bright red blood in stool: Resolved Status post transfusion, emergently transferred to [facility], emergent endoscopy GI evaluated and managed patient with emergent colonoscopy showing small ulcer in the colon Continue Prevacid Hemoglobin stable at 11.4 on 11/04. Sepsis, multiple episodes: Resolved at this time Patient does have rather significant coccyx decubitus wound: Wound culture with pseudo fluorescens/putida, group D enterococcus VRE which is sensitive to Zosyn. Patient did have one urine culture of Daphney parapsilosis, was treated with fluconazole for 10 days. --Patient had episode of diarrhea, C. difficile cultures performed which was negative. --Possible aseptic meningitis Infectious disease consulted and last seen the patient on 10/18/16, at that time it was indicated to observe off antibiotics. 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 Would benefit from long-term steroids Prerenal azotemia: Improved Continue IV fluids Continue to monitor renal function Hypernatremia: Resolved Continue free water flushes 200 cc every 4 hours Continue IV fluids Monitor sodium level Decreased oral intake and dysphagia on initial presentation Speech therapy following intermittently. S/P barium swallow. Patient with severe dysphagia. GI consulted and PEG tube was placed. Dietary recommending Glucerna 1.5 at 65 mL's an hour, tolerating well. Coccyx decubitus: Wound care nurse is following the patient for management Wound care nurse recommending waiting specialty bed, do not have patient increase, recommended Santyl wound care Mood disorder Patient was evaluated by psychiatrist. Psychiatrist recommended Prozac Diabetes Glucose well controlled, patient only required 5 units of insulin in the last week. Discontinued Accu-Cheks and sliding scale insulin Possible conjunctivitis: 11/08. Thin milky drainage from the eyes with some mild injection on the R. -Continue Polytrim drops both eyes for 7 days. DVT Prophylaxis: Lovenox, TEDs/SCDs. Discharge Planning Awaiting Medicaid for placement. Problem Qualifiers (1) GI bleed: Qualified Code: K92.2 - Gastrointestinal hemorrhage, unspecified gastrointestinal hemorrhage type (2) UTI (urinary tract infection): Qualified Code: N30.00 - Acute cystitis without hematuria (3) Effusion of hip joint: Qualified Code: M25.459 - Effusion of hip joint, unspecified laterality Mari Talamantes November 09, 2016 09:37
[2016-11-09] MEDS: LACTIC ACID (AMMONIUM LACTATE) 12% LOTION 225 GM BTL TOPICAL SCH ×2 (13:42→21:00)
[2016-11-09 20:00] VITALS: BP 94/82; PULSE 92; RESP 16; TEMP 97.3; O2SAT 100
[2016-11-10] VITALS (8 sets, daily range): BP systolic 97–118; BP diastolic 60–90; PULSE 81–122; RESP 13–16; TEMP 87–98; O2SAT 95–100
[2016-11-10] MEDS: POLYMYXIN/TRIMETHOPRIM OPHT SOLN 10 ML BTL EACH EYE SCH ×5 (00:33→16:10)
[2016-11-10] MEDS: ACETAMINOPHEN/HYDROcodone 325 MG/5 MG TAB PEG PRN (00:33)
[2016-11-10 05:28] LABS: AUTOMATED NEUTROPHIL # 7.4 TH/MM3 (1.8-7.7); BASOPHIL # 0.1 TH/MM3 (0-0.2); BASOPHIL % 0.6 % (0.0-2.0); EOSINOPHIL # 0.1 TH/MM3 (0-0.4); EOSINOPHIL % 0.8 % (0.0-4.0); HEMATOCRIT 35.4 % (39.0-51.0); HEMOGLOBIN 11.6 GM/DL (13.0-17.0); LYMPH % 13.5 % (9.0-44.0); LYMPHOCYTE # 1.3 TH/MM3 (1.0-4.8); MEAN CELL VOLUME 89.7 FL (80.0-100.0); MEAN CORPUSCULAR HEMOGLOBIN 29.3 PG (27.0-34.0); MEAN CORPUSCULAR HGB CONC 32.7 % (32.0-36.0); MEAN PLATELET VOLUME 8.6 FL (7.0-11.0); MONO % 4.3 % (0.0-8.0); MONOCYTE # 0.4 TH/MM3 (0-0.9); NEUT % 80.8 % (16.0-70.0); PLATELET COUNT 351 TH/MM3 (150-450); RED BLOOD COUNT 3.95 MIL/MM3 (4.50-5.90); RED CELL DISTRIBUTION WIDTH 18.9 % (11.6-17.2); WHITE BLOOD COUNT 9.3 TH/MM3 (4.0-11.0)
--- NOTE | 2016-11-10 05:32 | RADHPO ---
EXAM DATE/TIME: 11/10/2016 05:04 [facility] COMPARISON: CHEST SINGLE AP, November 02, 2016, 14:47. INDICATIONS : Cough, chest congestion MEDICAL HISTORY : Stroke. Cardiovascular disease. SURGICAL HISTORY : None. ENCOUNTER: Initial ACUITY: 1 day PAIN SCORE: Non-responsive. LOCATION: Left chest FINDINGS: A single view of the chest demonstrates the lungs to be symmetrically aerated without evidence of mas s, infiltrate or effusion. The cardiomediastinal contours are unremarkable. Osseous structures are intact. There is an old healed left clavicular fracture again noted. CONCLUSION: No acute disease. There is no evidence of pneumonia. Mikie Franco MD on November 10, 2016 at 5:30 Board Certified Radiologist. This report was verified electronically.
[2016-11-10 05:37] LABS: BICARBONATE 31.3 MEQ/L (21.0-32.0); CALCIUM 9.1 MG/DL (8.5-10.1); MAGNESIUM 2.1 MG/DL (1.5-2.5)
[2016-11-10 05:41] LABS: CREATININE 0.61 MG/DL (0.60-1.30)
[2016-11-10] MEDS: azaTHIOprine 50 MG TAB PEG SCH ×2 (07:38→17:35)
[2016-11-10] MEDS: SENNOSIDES SYRUP 8.8 MG/5 ML CUP PEG SCH (08:59)
[2016-11-10] MEDS: ENOXAPARIN SODIUM 40 MG/0.4 ML SYRINGE SQ SCH (08:59)
[2016-11-10] MEDS: FLUoxetine HCL LIQUID 20 MG/5 ML CUP PEG SCH (08:59)
[2016-11-10] MEDS: predniSONE 20 MG TAB PEG SCH (08:59)
[2016-11-10] MEDS: METOPROLOL TARTRATE 25 MG TAB PEG SCH ×2 (08:59→21:00)
[2016-11-10] MEDS: LANSOPRAZOLE SOLUTAB 30 MG TAB PEG SCH (09:00)
[2016-11-10] MEDS: LACTOBACILLUS ACIDOPHILUS TAB PEG SCH (09:00)
[2016-11-10] MEDS: LACTIC ACID (AMMONIUM LACTATE) 12% LOTION 225 GM BTL TOPICAL SCH (09:00)
[2016-11-10] MEDS: COLLAGENASE OINT 30 GM TUBE TOP SCH (09:00)
--- NOTE | 2016-11-10 15:37 | HHI.PR ---
Subjective Remarks Follow-up for neuro Behet's syndrome. The patient admits to pain in his lower legs, 08/05, but nurse states she administered [place]. The nurse states the patient was diaphoretic last night and IV was placed. He has been afebrile. She states he had liquid stool yesterday, but today it is soft, better in consistency, with only one episode. Objective Vitals Vital Signs Date Time Temp Pulse Resp B/P Pulse Ox O2 Delivery O2 Flow Rate FiO2 11/10/16 14:16 96.9 86 15 118/70 99 11/10/16 08:54 98.0 117 15 112/60 99 11/10/16 07:00 112 11/10/16 04:00 97.0 122 15 108/90 95 11/10/16 00:00 94 115/89 11/09/16 20:00 97.3 92 16 94/82 100 I/O 11/09/16 11/09/16 11/09/16 11/10/16 11/10/16 11/10/16 07:00 15:00 23:00 07:00 15:00 23:00 Intake Total 933 ml 0 ml 1580 ml Output Total 425 ml 350 ml 250 ml 200 ml Balance 508 ml -350 ml -250 ml 1380 ml Intake Oral 0 ml 0 ml Tube Feeding 533 ml 780 ml Tube Irrigant 400 ml Other 800 ml Output Urine Total 425 ml 350 ml 250 ml 200 ml # Bowel Movements 2 3 0 1 Result Diagram: 11/10/16 0515 11/10/16 0515 Objective Remarks GENERAL: Thin patient in no apparent distress. SKIN: Dry ulceration noted over the right lateral malleolus. EYES: Dried drainage around the eyes. No injection. CARDIOVASCULAR: Normal rate and regular rhythm. RESPIRATORY: CTAB, but patient has abnormal way he breathes which is chronic. No audible secretions today. GASTROINTESTINAL: Bowel sounds present. Abdomen soft, non-tender, nondistended. MUSCULOSKELETAL: Patient appears to have contractures of legs. Tender over B/L knees. No calf pain bilaterally. 2+ DP pulses bilaterally. NEUROLOGICAL: Awake and alert. Nods yes or no to questions. Makes grunting sounds when he is trying to answer. 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 Patient followed by neurology. Aphasic at baseline. Neurology following the patient Continue Imuran, prednisone EEG shows mild to moderate slowing at times of various depending on the epoch, there was no epileptic activity seen Continue PT/OT Palliative care following the patient and is still indicating the patient is making his own decisions, full code and full aggressive measures c/o knee pain bilaterally likely due to contractures. [place] as needed for pain. Sinus tachycardia: chronic Lopressor 25 mg twice daily. TSH, free T3, free T4 were normal Melena, bright red blood in stool: Resolved Status post transfusion, emergently transferred to main hospital, emergent endoscopy GI evaluated and managed patient with emergent colonoscopy showing small ulcer in the colon Continue Prevacid Hemoglobin stable at 11.4 on 11/04. Sepsis, multiple episodes: Resolved at this time Patient does have rather significant coccyx decubitus wound: Wound culture with pseudo fluorescens/putida, group D enterococcus VRE which is sensitive to Zosyn. Patient did have one urine culture of Daphney parapsilosis, was treated with fluconazole for 10 days. --Patient had episode of diarrhea, C. difficile cultures performed which was negative. --Possible aseptic meningitis Infectious disease consulted and last seen the patient on 10/18/16, at that time it was indicated to observe off antibiotics. 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 Would benefit from long-term steroids. 11/10: Nurse tells me today that apparently the patient was diaphoretic last night. She is going to obtain vitals every 4 hours. The patient has remained afebrile. He appears well clinically. She is advised to monitor for SOB, urine changes, or changes in BMs. Stool is more formed than yesterday but if patient again has liquid stools, we will need to recheck C.diff. Prerenal azotemia: Improved Continue IV fluids Continue to monitor renal function Hypernatremia: Resolved Continue free water flushes 200 cc every 4 hours Continue IV fluids Monitor sodium level Decreased oral intake and dysphagia on initial presentation Speech therapy following intermittently. S/P barium swallow. Patient with severe dysphagia. GI consulted and PEG tube was placed. Dietary recommending Glucerna 1.5 at 65 mL's an hour, tolerating well. Coccyx decubitus: Wound care nurse is following the patient for management. Recommends continuing to change dressings with Santyl ointment and cleanse with normal saline only. Do not apply briefs to patient. Awaiting specialty bed. Ankle ulcer: R lateral malleolus, dry. -11/10: Patient currently has no foam boots in place as they got dirty. Nurse is advised patient needs to be wearing these. She is advised to contact wound care regarding management of ankle wound. Mood disorder Patient was evaluated by psychiatrist. Psychiatrist recommended Prozac Diabetes Glucose well controlled. Discontinued Accu-Cheks and sliding scale insulin Possible conjunctivitis: 11/08. Thin milky drainage from the eyes with some mild injection on the R. -Continue Polytrim drops both eyes for 7 days. DVT Prophylaxis: Lovenox, TEDs/SCDs. Discharge Planning 11/08: CM requested [facility] to evaluate for placement. Problem Qualifiers (1) GI bleed: Qualified Code: K92.2 - Gastrointestinal hemorrhage, unspecified gastrointestinal hemorrhage type (2) UTI (urinary tract infection): Qualified Code: N30.00 - Acute cystitis without hematuria (3) Effusion of hip joint: Qualified Code: M25.459 - Effusion of hip joint, unspecified laterality Mari Talamantes November 10, 2016 15:37
[2016-11-11] VITALS: BP 113/87; PULSE 79; RESP 20; TEMP 96.4; O2SAT 100
[2016-11-11] MEDS: LACTOBACILLUS ACIDOPHILUS TAB PEG SCH ×3 (00:16→21:18)
[2016-11-11] MEDS: LACTIC ACID (AMMONIUM LACTATE) 12% LOTION 225 GM BTL TOPICAL SCH ×3 (00:16→21:19)
[2016-11-11] MEDS: LANSOPRAZOLE SOLUTAB 30 MG TAB PEG SCH ×3 (00:16→21:18)
[2016-11-11] MEDS: POLYMYXIN/TRIMETHOPRIM OPHT SOLN 10 ML BTL EACH EYE SCH ×8 (00:21→23:48)
[2016-11-11 04:00] VITALS: BP 110/76; PULSE 75; RESP 16; TEMP 96; O2SAT 100
[2016-11-11] MEDS: azaTHIOprine 50 MG TAB PEG SCH ×2 (05:42→18:13)
[2016-11-11 08:00] VITALS: BP 102/77; PULSE 86; RESP 24; TEMP 96.7; O2SAT 100
[2016-11-11] MEDS: METOPROLOL TARTRATE 25 MG TAB PEG SCH ×2 (08:22→21:18)
[2016-11-11] MEDS: FLUoxetine HCL LIQUID 20 MG/5 ML CUP PEG SCH (08:22)
[2016-11-11] MEDS: COLLAGENASE OINT 30 GM TUBE TOP SCH (08:23)
[2016-11-11] MEDS: PADIMATE (CHAPSTICK) 4.5 GM TUBE TOPICAL PRN (08:23)
--- NOTE | 2016-11-11 11:48 | HHI.PR ---
Subjective Remarks Follow-up for neuro Behet's syndrome. The nurse states knitter helper was inquiring about a Kowalski being placed stating that the condom catheter was breaking down. Currently patient is in a brief. I told the RN the patient cannot be in a brief due to his coccygeal wound. I have asked the daytime RN to reapply the condom catheter and see if it stays in place during the day and reassess the need for Kowalski later. Patient's last bowel movement was last night and RN denies it being liquid. Per RN, wound care is coming to evaluate right ankle wound today. Patient denies having any pain today. Objective Vitals Vital Signs Date Time Temp Pulse Resp B/P Pulse Ox O2 Delivery O2 Flow Rate FiO2 11/11/16 08:00 96.7 86 24 102/77 100 11/11/16 04:00 96.0 75 16 110/76 100 11/11/16 00:00 96.4 79 20 113/87 100 11/10/16 20:00 96.6 84 13 97/81 98 11/10/16 17:04 97.0 81 16 102/70 100 11/10/16 15:00 84 11/10/16 14:16 96.9 86 15 118/70 99 I/O 11/10/16 11/10/16 11/10/16 11/11/16 11/11/16 11/11/16 07:00 15:00 23:00 07:00 15:00 23:00 Intake Total 1580 ml 1180 ml 0 ml Output Total 200 ml 450 ml Balance 1380 ml 730 ml 0 ml Intake Oral 0 ml 0 ml 0 ml Tube Feeding 780 ml 580 ml Tube Irrigant 600 ml Other 800 ml Output Urine Total 200 ml 450 ml # Voids 2 # Bowel Movements 1 2 0 Result Diagram: 11/10/16 0515 11/10/16 0515 Objective Remarks GENERAL: Thin patient in no apparent distress. SKIN: Bandage over the R ankle. EYES: No injection. CARDIOVASCULAR: Normal rate and regular rhythm. RESPIRATORY: CTAB, but patient has abnormal way he breathes which is chronic. No audible secretions. GASTROINTESTINAL: Abdomen soft, non-tender, nondistended. MUSCULOSKELETAL: Hold his knees up in flexed position. NEUROLOGICAL: Awake and alert. Nods head. Non-verbal. 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 Patient followed by neurology. Aphasic at baseline. Neurology following the patient Continue Imuran, prednisone EEG shows mild to moderate slowing at times of various depending on the epoch, there was no epileptic activity seen Continue PT/OT Palliative care following the patient and is still indicating the patient is making his own decisions, full code and full aggressive measures [place] as needed for pain. Sinus tachycardia: chronic Lopressor 25 mg twice daily. TSH, free T3, free T4 were normal Melena, bright red blood in stool: Resolved Status post transfusion, emergently transferred to [facility], emergent endoscopy GI evaluated and managed patient with emergent colonoscopy showing small ulcer in the colon Continue Prevacid Hemoglobin stable at 11.4 on 11/04. Sepsis, multiple episodes: Resolved at this time Patient does have rather significant coccyx decubitus wound: Wound culture with pseudo fluorescens/putida, group D enterococcus VRE which is sensitive to Zosyn. Patient did have one urine culture of Daphney parapsilosis, was treated with fluconazole for 10 days. --Patient had episode of diarrhea, C. difficile cultures performed which was negative. --Possible aseptic meningitis Infectious disease consulted and last seen the patient on 10/18/16, at that time it was indicated to observe off antibiotics. 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 Would benefit from long-term steroids. 11/11: The patient has remained afebrile. Stool consistency improved. Prerenal azotemia: Improved Continue IV fluids Continue to monitor renal function Hypernatremia: Resolved Continue free water flushes 200 cc every 4 hours Continue IV fluids Monitor sodium level Decreased oral intake and dysphagia on initial presentation Speech therapy following intermittently. S/P barium swallow. Patient with severe dysphagia. GI consulted and PEG tube was placed. Dietary recommending Glucerna 1.5 at 65 mL's an hour, tolerating well. Coccyx decubitus: Wound care nurse is following the patient for management. Recommends continuing to change dressings with Santyl ointment and cleanse with normal saline only. Do not apply briefs to patient. Specialty bed ordered. Ankle ulcer: R lateral malleolus, dry. -11/11: Nurse is advised patient needs to be wearing foam heel protectors. RN states wound care is coming today to evaluate ankle wound. Mood disorder Patient was evaluated by psychiatrist. Psychiatrist recommended Prozac Diabetes Glucose well controlled. Discontinued Accu-Cheks and sliding scale insulin Possible conjunctivitis: 11/08. Thin milky drainage from the eyes with some mild injection on the R. -Continue Polytrim drops both eyes for 7 days. DVT Prophylaxis: Lovenox, TEDs/SCDs. Discharge Planning 11/08: CM requested [facility] to evaluate for placement. Problem Qualifiers (1) GI bleed: Qualified Code: K92.2 - Gastrointestinal hemorrhage, unspecified gastrointestinal hemorrhage type (2) UTI (urinary tract infection): Qualified Code: N30.00 - Acute cystitis without hematuria (3) Effusion of hip joint: Qualified Code: M25.459 - Effusion of hip joint, unspecified laterality Mari Talamantes November 11, 2016 11:48
[2016-11-11] MEDS: ACETAMINOPHEN/HYDROcodone 325 MG/5 MG TAB PEG PRN (13:05)
[2016-11-11] MEDS: predniSONE 20 MG TAB PEG SCH (13:06)
[2016-11-11] MEDS: SENNOSIDES SYRUP 8.8 MG/5 ML CUP PEG SCH (13:07)
[2016-11-11] MEDS: ENOXAPARIN SODIUM 40 MG/0.4 ML SYRINGE SQ SCH (13:08)
[2016-11-11 20:00] VITALS: BP 114/78; PULSE 90; RESP 14; TEMP 98.2; O2SAT 100
[2016-11-12] MEDS: POLYMYXIN/TRIMETHOPRIM OPHT SOLN 10 ML BTL EACH EYE SCH ×5 (04:00→20:23)
[2016-11-12] MEDS: azaTHIOprine 50 MG TAB PEG SCH ×2 (06:10→17:08)
[2016-11-12 08:00] VITALS: BP 111/83; PULSE 18; RESP 18; TEMP 97.4; O2SAT 99
[2016-11-12] MEDS: LACTOBACILLUS ACIDOPHILUS TAB PEG SCH ×2 (09:10→20:23)
[2016-11-12] MEDS: FLUoxetine HCL LIQUID 20 MG/5 ML CUP PEG SCH (09:11)
[2016-11-12] MEDS: LANSOPRAZOLE SOLUTAB 30 MG TAB PEG SCH ×2 (09:11→20:23)
[2016-11-12] MEDS: ENOXAPARIN SODIUM 40 MG/0.4 ML SYRINGE SQ SCH (09:12)
[2016-11-12] MEDS: METOPROLOL TARTRATE 25 MG TAB PEG SCH ×2 (09:16→20:23)
[2016-11-12] MEDS: predniSONE 20 MG TAB PEG SCH (09:16)
[2016-11-12] MEDS: SENNOSIDES SYRUP 8.8 MG/5 ML CUP PEG SCH (09:17)
[2016-11-12] MEDS: PADIMATE (CHAPSTICK) 4.5 GM TUBE TOPICAL PRN ×2 (09:18→20:34)
[2016-11-12] MEDS: COLLAGENASE OINT 30 GM TUBE TOP SCH (09:19)
[2016-11-12] MEDS: LACTIC ACID (AMMONIUM LACTATE) 12% LOTION 225 GM BTL TOPICAL SCH ×2 (09:20→20:24)
--- NOTE | 2016-11-12 12:03 | HHI.PR ---
Subjective Remarks Follow-up for neuro Behet's syndrome. 2 BMs overnight per RN, soft. The patient is sad and crying. Objective Vitals Vital Signs Date Time Temp Pulse Resp B/P Pulse Ox O2 Delivery O2 Flow Rate FiO2 11/12/16 08:00 97.4 18 18 111/83 99 11/11/16 20:00 98.2 90 14 114/78 100 Manual Cuff/Auscultation 11/11/16 14:05 20 I/O 11/11/16 11/11/16 11/11/16 11/12/16 11/12/16 11/12/16 07:00 15:00 23:00 07:00 15:00 23:00 Intake Total 0 ml 0 ml 1119 ml Output Total 700 ml Balance 0 ml 0 ml 419 ml Intake Oral 0 ml 0 ml Tube Feeding 999 ml Other 120 ml Output Urine Total 700 ml # Voids 2 2 # Bowel Movements 0 1 2 1 Result Diagram: 11/10/1615 11/10/16514 Objective Remarks GENERAL: Thin patient in no apparent distress. CARDIOVASCULAR: Tachycardic rate with regular rhythm. RESPIRATORY: CTAB. GASTROINTESTINAL: Normoactive bowel sounds. Abdomen soft, non-tender, nondistended. Feeding tube present. NEUROLOGICAL: Awake and alert. Nods head. Non-verbal, but makes grunting guttural noises. PSYCHIATRIC: Depressed affect, crying. 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 Patient followed by neurology. Aphasic at baseline. Neurology following the patient Continue Imuran, prednisone EEG shows mild to moderate slowing at times of various depending on the epoch, there was no epileptic activity seen Continue PT/OT Palliative care following the patient and is still indicating the patient is making his own decisions, full code and full aggressive measures [place] as needed for pain. Sinus tachycardia: chronic Lopressor 25 mg twice daily. TSH, free T3, free T4 were normal Melena, bright red blood in stool: Resolved Status post transfusion, emergently transferred to [facility], emergent endoscopy GI evaluated and managed patient with emergent colonoscopy showing small ulcer in the colon Continue Prevacid Hemoglobin stable at 11.4 on 11/04. Sepsis, multiple episodes: Resolved at this time Patient does have rather significant coccyx decubitus wound: Wound culture with pseudo fluorescens/putida, group D enterococcus VRE which is sensitive to Zosyn. Patient did have one urine culture of Daphney parapsilosis, was treated with fluconazole for 10 days. --Patient had episode of diarrhea, C. difficile cultures performed which was negative. --Possible aseptic meningitis Infectious disease consulted and last seen the patient on 10/18/16, at that time it was indicated to observe off antibiotics. 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 Would benefit from long-term steroids. 11/12: Remains afebrile. Monitor consistency of stools. Prerenal azotemia: Improved Continue IV fluids Continue to monitor renal function Hypernatremia: Resolved Continue free water flushes 200 cc every 4 hours Continue IV fluids Monitor sodium level Decreased oral intake and dysphagia on initial presentation Speech therapy following intermittently. S/P barium swallow. Patient with severe dysphagia. GI consulted and PEG tube was placed. Dietary recommending Glucerna 1.5 at 65 mL's an hour, tolerating well. Coccyx decubitus: Wound care nurse is following the patient for management. Recommends continuing to change dressings with Santyl ointment and cleanse with normal saline only. Do not apply briefs to patient. Specialty bed ordered. Ankle ulcer: R lateral malleolus, dry. -Nurse is advised patient needs to be wearing foam heel protectors. Wound care has evaluated, recommends painting area with skin prep or Betadine bid and leave open to air. Depression Patient was evaluated by psychiatrist. Psychiatrist recommended Prozac 11/12: Patient appears increasingly depressed today. Will increase Prozac to 20 mg daily as he has been on 10 mg daily for several months. Diabetes Glucose well controlled. Discontinued Accu-Cheks and sliding scale insulin Possible conjunctivitis: 11/08. Thin milky drainage from the eyes with some mild injection on the R. -Continue Polytrim drops both eyes for 7 days. DVT Prophylaxis: Lovenox, TEDs/SCDs. Patient discussed with Dr. Garner. Discharge Planning 11/08: CM requested [facility] to evaluate for placement. Problem Qualifiers (1) GI bleed: Qualified Code: K92.2 - Gastrointestinal hemorrhage, unspecified gastrointestinal hemorrhage type (2) UTI (urinary tract infection): Qualified Code: N30.00 - Acute cystitis without hematuria (3) Effusion of hip joint: Qualified Code: M25.459 - Effusion of hip joint, unspecified laterality Mari Talamantes November 12, 2016 12:03
[2016-11-12 20:47] VITALS: BP 118/80; PULSE 104; RESP 22; TEMP 98.9; O2SAT 97
[2016-11-13] MEDS: POLYMYXIN/TRIMETHOPRIM OPHT SOLN 10 ML BTL EACH EYE SCH ×7 (00:02→23:58)
[2016-11-13] MEDS: azaTHIOprine 50 MG TAB PEG SCH ×2 (05:19→17:56)
[2016-11-13 08:00] VITALS: BP 116/80; PULSE 90; RESP 20; TEMP 97.6; O2SAT 100
[2016-11-13] MEDS: predniSONE 20 MG TAB PEG SCH (08:49)
[2016-11-13] MEDS: LANSOPRAZOLE SOLUTAB 30 MG TAB PEG SCH ×2 (08:49→20:40)
[2016-11-13] MEDS: SENNOSIDES SYRUP 8.8 MG/5 ML CUP PEG SCH (08:49)
[2016-11-13] MEDS: ENOXAPARIN SODIUM 40 MG/0.4 ML SYRINGE SQ SCH (08:49)
[2016-11-13] MEDS: METOPROLOL TARTRATE 25 MG TAB PEG SCH ×2 (08:49→20:40)
[2016-11-13] MEDS: FLUoxetine HCL LIQUID 20 MG/5 ML CUP PEG SCH (08:49)
[2016-11-13] MEDS: PADIMATE (CHAPSTICK) 4.5 GM TUBE TOPICAL PRN ×2 (08:51→20:39)
[2016-11-13] MEDS: LACTIC ACID (AMMONIUM LACTATE) 12% LOTION 225 GM BTL TOPICAL SCH ×2 (08:51→20:40)
--- NOTE | 2016-11-13 09:26 | HHI.PR ---
Subjective Remarks Follow-up for neuro-Behet's syndrome. Patient denies any pain today. Objective Vitals Vital Signs Date Time Temp Pulse Resp B/P Pulse Ox O2 Delivery O2 Flow Rate FiO2 11/12/16 20:47 98.9 104 22 118/80 97 I/O 11/12/16 11/12/16 11/12/16 11/13/16 11/13/16 11/13/16 07:00 15:00 23:00 07:00 15:00 23:00 Intake Total 1119 ml 685 ml 1506 ml 618 ml Output Total 700 ml 950 ml Balance 419 ml 685 ml 556 ml 618 ml Tube Feeding 999 ml 585 ml 1206 ml 418 ml Tube Irrigant 100 ml 100 ml Other 120 ml 200 ml 200 ml Output Urine Total 700 ml 950 ml # Bowel Movements 1 1 Result Diagram: 11/10/1651411/10/16514 Objective Remarks GENERAL: Thin patient in no apparent distress. EYES: Mild milky drainage at the inner corner of R eye. No injection. MOUTH: Healing aphthous ulcer L lower lip. CARDIOVASCULAR: Regular rate and rhythm. RESPIRATORY: CTAB. GASTROINTESTINAL: Abdomen soft, non-tender, nondistended. NEUROLOGICAL: Awake and alert. Nods head to answer questions. Non-verbal. PSYCHIATRIC: Improved affect today. 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 Patient followed by neurology. Aphasic at baseline. Neurology following the patient Continue Imuran, prednisone EEG shows mild to moderate slowing at times of various depending on the epoch, there was no epileptic activity seen Continue PT/OT Palliative care following the patient and is still indicating the patient is making his own decisions, full code and full aggressive measures [place] as needed for pain. Sinus tachycardia: chronic Lopressor 25 mg twice daily. TSH, free T3, free T4 were normal Melena, bright red blood in stool: Resolved Status post transfusion, emergently transferred to [facility], emergent endoscopy GI evaluated and managed patient with emergent colonoscopy showing small ulcer in the colon Continue Prevacid Hemoglobin stable at 11.4 on 11/04. Sepsis, multiple episodes: Resolved at this time Patient does have rather significant coccyx decubitus wound: Wound culture with pseudo fluorescens/putida, group D enterococcus VRE which is sensitive to Zosyn. Patient did have one urine culture of Daphney parapsilosis, was treated with fluconazole for 10 days. --Patient had episode of diarrhea, C. difficile cultures performed which was negative. --Possible aseptic meningitis Infectious disease consulted and last seen the patient on 10/18/16, at that time it was indicated to observe off antibiotics. 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 Would benefit from long-term steroids. 11/12: Remains afebrile. Monitor consistency of stools. Prerenal azotemia: Improved Continue IV fluids Continue to monitor renal function Hypernatremia: Resolved Continue free water flushes 200 cc every 4 hours Continue IV fluids Monitor sodium level Decreased oral intake and dysphagia on initial presentation Speech therapy following intermittently. S/P barium swallow. Patient with severe dysphagia. GI consulted and PEG tube was placed. Dietary recommending Glucerna 1.5 at 65 mL's an hour, tolerating well. Coccyx decubitus: Wound care nurse is following the patient for management. Recommends continuing to change dressings with Santyl ointment and cleanse with normal saline only. Do not apply briefs to patient. Specialty bed ordered. Ankle ulcer: R lateral malleolus, dry. -Nurse is advised patient needs to be wearing foam heel protectors. Wound care has evaluated, recommends painting area with skin prep or Betadine bid and leave open to air. Depression Patient was evaluated by psychiatrist. Psychiatrist recommended Prozac 11/12: Patient appears increasingly depressed. Prozac increased to 20 mg daily. Diabetes Glucose well controlled. Discontinued Accu-Cheks and sliding scale insulin Possible conjunctivitis: 11/08. Thin milky drainage from the eyes with some mild injection on the R. -Continue Polytrim drops both eyes for 7 days. DVT Prophylaxis: Lovenox, TEDs/SCDs. Patient discussed with Dr. Garner. Discharge Planning 11/08: CM requested [facility] to evaluate for placement. Problem Qualifiers (1) GI bleed: Qualified Code: K92.2 - Gastrointestinal hemorrhage, unspecified gastrointestinal hemorrhage type (2) UTI (urinary tract infection): Qualified Code: N30.00 - Acute cystitis without hematuria (3) Effusion of hip joint: Qualified Code: M25.459 - Effusion of hip joint, unspecified laterality Mari Talamantes November 13, 2016 09:26
[2016-11-13] MEDS: LACTOBACILLUS ACIDOPHILUS TAB PEG SCH ×2 (12:19→20:40)
[2016-11-13] MEDS: COLLAGENASE OINT 30 GM TUBE TOP SCH (16:36)
[2016-11-13 20:00] VITALS: BP 104/87; PULSE 98; RESP 21; TEMP 97.2; O2SAT 100
[2016-11-14] MEDS: COLLAGENASE OINT 30 GM TUBE TOP SCH (05:46)
[2016-11-14] MEDS: POLYMYXIN/TRIMETHOPRIM OPHT SOLN 10 ML BTL EACH EYE SCH ×5 (05:47→22:16)
[2016-11-14] MEDS: azaTHIOprine 50 MG TAB PEG SCH ×2 (05:47→17:12)
[2016-11-14] MEDS: predniSONE 20 MG TAB PEG SCH (07:33)
[2016-11-14] MEDS: SENNOSIDES SYRUP 8.8 MG/5 ML CUP PEG SCH (07:33)
[2016-11-14] MEDS: ENOXAPARIN SODIUM 40 MG/0.4 ML SYRINGE SQ SCH (07:33)
[2016-11-14] MEDS: FLUoxetine HCL LIQUID 20 MG/5 ML CUP PEG SCH (07:33)
[2016-11-14] MEDS: LANSOPRAZOLE SOLUTAB 30 MG TAB PEG SCH ×2 (07:34→22:15)
[2016-11-14] MEDS: METOPROLOL TARTRATE 25 MG TAB PEG SCH ×2 (07:34→22:14)
[2016-11-14] MEDS: PADIMATE (CHAPSTICK) 4.5 GM TUBE TOPICAL PRN (07:34)
[2016-11-14] MEDS: LACTOBACILLUS ACIDOPHILUS TAB PEG SCH ×2 (07:34→22:15)
[2016-11-14 08:00] VITALS: BP 103/83; PULSE 101; RESP 23; TEMP 98.7; O2SAT 100
--- NOTE | 2016-11-14 10:00 | HHI.PR ---
Subjective Remarks Follow-up for neuro Behet's syndrome. Patient denies any pain. Remains afebrile. Objective Vitals Vital Signs Date Time Temp Pulse Resp B/P Pulse Ox O2 Delivery O2 Flow Rate FiO2 11/14/16 08:00 98.7 101 23 103/83 100 11/13/16 20:00 97.2 98 21 104/87 100 I/O 11/13/16 11/13/16 11/13/16 11/14/16 11/14/16 11/14/16 06:59 14:59 22:59 06:59 14:59 22:59 Intake Total 618 ml 455 ml 1167 ml 979 ml Output Total 500 ml 425 ml 250 ml Balance 618 ml -45 ml 742 ml 729 ml Tube Feeding 418 ml 455 ml 967 ml 579 ml Other 200 ml 200 ml 400 ml Output Urine Total 500 ml 425 ml 250 ml # Bowel Movements 3 1 Result Diagram: 11/10/1615 11/10/16514 Objective Remarks GENERAL: Thin patient in no apparent distress. EYES: No injection. CARDIOVASCULAR: Regular rate and rhythm. RESPIRATORY: CTAB. GASTROINTESTINAL: Abdomen soft, non-tender, nondistended. NEUROLOGICAL: Awake and alert. Nods head to answer questions. Non-verbal. 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 Patient followed by neurology. Aphasic at baseline. Neurology following the patient Continue Imuran, prednisone EEG shows mild to moderate slowing at times of various depending on the epoch, there was no epileptic activity seen Continue PT/OT Palliative care following the patient and is still indicating the patient is making his own decisions, full code and full aggressive measures [place] as needed for pain. Sinus tachycardia: chronic Lopressor 25 mg twice daily. TSH, free T3, free T4 were normal Melena, bright red blood in stool: Resolved Status post transfusion, emergently transferred to [facility], emergent endoscopy GI evaluated and managed patient with emergent colonoscopy showing small ulcer in the colon Continue Prevacid Hemoglobin stable at 11.4 on 11/04. Sepsis, multiple episodes: Resolved at this time Patient does have rather significant coccyx decubitus wound: Wound culture with pseudo fluorescens/putida, group D enterococcus VRE which is sensitive to Zosyn. Patient did have one urine culture of Daphney parapsilosis, was treated with fluconazole for 10 days. --Patient had episode of diarrhea, C. difficile cultures performed which was negative. --Possible aseptic meningitis Infectious disease consulted and last seen the patient on 10/18/16, at that time it was indicated to observe off antibiotics. 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 Would benefit from long-term steroids. Prerenal azotemia: Improved Continue IV fluids Continue to monitor renal function Hypernatremia: Resolved Continue free water flushes 200 cc every 4 hours Continue IV fluids Monitor sodium level Decreased oral intake and dysphagia on initial presentation Speech therapy following intermittently. S/P barium swallow. Patient with severe dysphagia. GI consulted and PEG tube was placed. Dietary recommending Glucerna 1.5 at 65 mL's an hour, tolerating well. Coccyx decubitus: Wound care nurse is following the patient for management. Recommends continuing to change dressings with Santyl ointment and cleanse with normal saline only. Do not apply briefs to patient. Specialty bed ordered. Ankle ulcer: R lateral malleolus, dry. -Nurse is advised patient needs to be wearing foam heel protectors. Wound care has evaluated, recommends painting area with skin prep or Betadine bid and leave open to air. Depression Patient was evaluated by psychiatrist. Psychiatrist recommended Prozac 5/20: Patient appears increasingly depressed. Prozac increased to 20 mg daily. Diabetes Glucose well controlled. Discontinued Accu-Cheks and sliding scale insulin Possible conjunctivitis: 11/08. Thin milky drainage from the eyes with some mild injection on the R. -Continue Polytrim drops both eyes for 7 days. DVT Prophylaxis: Lovenox, TEDs/SCDs. Discharge Planning 11/08: CM requested [facility] to evaluate for placement. Problem Qualifiers (1) GI bleed: Qualified Code: K92.2 - Gastrointestinal hemorrhage, unspecified gastrointestinal hemorrhage type (2) UTI (urinary tract infection): Qualified Code: N30.00 - Acute cystitis without hematuria (3) Effusion of hip joint: Qualified Code: M25.459 - Effusion of hip joint, unspecified laterality Mari Talamantes November 14, 2016 10:00
[2016-11-14] MEDS: LACTIC ACID (AMMONIUM LACTATE) 12% LOTION 225 GM BTL TOPICAL SCH ×2 (10:25→22:18)
[2016-11-14 20:00] VITALS: BP 104/66; PULSE 112; RESP 24; TEMP 96.7; O2SAT 100
[2016-11-15] MEDS: POLYMYXIN/TRIMETHOPRIM OPHT SOLN 10 ML BTL EACH EYE SCH ×4 (00:29→12:00)
[2016-11-15] MEDS: azaTHIOprine 50 MG TAB PEG SCH ×2 (04:57→18:00)
[2016-11-15 08:00] VITALS: BP 141/104; PULSE 84; RESP 24; TEMP 97.1; O2SAT 98
[2016-11-15] MEDS: COLLAGENASE OINT 30 GM TUBE TOP SCH (09:00)
[2016-11-15] MEDS: LACTIC ACID (AMMONIUM LACTATE) 12% LOTION 225 GM BTL TOPICAL SCH ×2 (09:00→22:00)
--- NOTE | 2016-11-15 09:19 | HHI.PR ---
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 Patient appears to be more alert. He is shaking his head yes and no. Denies any new complaints. Objective Vitals Vital Signs Date Time Temp Pulse Resp B/P Pulse Ox O2 Delivery O2 Flow Rate FiO2 11/15/16 08:00 97.1 84 24 141/104 98 11/14/16 20:00 96.7 112 24 104/66 100 I/O 11/14/16 11/14/16 11/14/16 11/15/16 11/15/16 11/15/16 07:00 15:00 23:00 07:00 15:00 23:00 Intake Total 979 ml 455 ml 330 ml 1050 ml Output Total 250 ml 655 ml Balance 729 ml -200 ml 330 ml 1050 ml Intake Oral 0 ml Tube Feeding 579 ml 455 ml 130 ml 650 ml Other 400 ml 200 ml 400 ml Output Urine Total 250 ml 650 ml Gastric Drainage Total 5 ml # Voids 2 4 # Bowel Movements 1 2 1 Objective Remarks GENERAL: Well-developed, cachectic. Appears to be alert but nonverbal. Denies pain. Patient lying in position. HEENT: Head is normocephalic without any lesions or masses noted. Facial features are symmetric. Eyes: Extraocular muscles are intact. Conjunctivae were clear. NECK: Supple without any masses. Trachea midline no deviation. No JVD, CARDIAC: Regular rhythm, tachycardia noted. S1/S2 are heard. No murmurs gallops or rubs. LUNGS: Clear to auscultation bilaterally. No wheeze, rhonchi or rales. No use of accessory muscles on inspiration or expiration. ABDOMEN: Soft, nontender. Nondistended. Bowel sounds heard in all 4 quadrants. No organomegaly or masses. Negative rebound, negative guarding. PEG tube noted. EXTREMITIES: No edema, pulses are equal bilaterally. No cyanosis or clubbing Procedures 07/19/16 EGD with PEG tube placement 09/27/16 colonoscopy Urinary Catheter: No Vascular Central Line Catheter: No A/P Assessment and Plan Neuro-Behcet, history of frontal lobe CVA, encephalopathy, history of meningitis , chronic No new changes on imaging. Patient followed by neurology. Aphasic at baseline. Neurology following the patient Continue Imuran, prednisone EEG shows mild to moderate slowing at times of various depending on the epoch, there was no epileptic activity seen Continue PT/OT Palliative care following the patient and is still indicating the patient is making his own decisions, full code and full aggressive measures Sinus tachycardia. Chronic Lopressor 25 mg twice daily. TSH, free T3, free T4 colon were normal Melena, bright red blood in stool, resolved Status post transfusion, emergency transferred to [facility], emergent endoscopy GI evaluated and managed patient with emergent colonoscopy showing small ulcer in the colon Continue Prevacid Sepsis, multiple episodes, resolved at this time Patient does have rather significant coccyx decubitus wound: Wound culture with pseudo fluorescens/putida, group D enterococcus VRE which is sensitive to Zosyn. Patient did have one urine culture of Daphney parapsilosis, was treated with fluconazole for 10 days. --Patient had episode of diarrhea, C. difficile cultures performed which was negative. --Possible aseptic meningitis Infectious disease consulted and last seen the patient on 10/18/16, at that time it was indicated to observe off antibiotics. 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 Would benefit from long-term steroids Prerenal azotemia, resolved Continue IV fluids Continue monitor renal function Hypernatremia, resolved Continue free water flushes 200 cc every 4 hours Continue IV fluids Monitor sodium level Decreased oral intake and dysphagia on initial presentation Speech therapy following intermittently. S/P barium swallow. Patient with severe dysphagia. GI consulted and PEG tube was placed. Dietary recommending Glucerna 1.5 at 65 mL's an hour, tolerating well. Coccyx decubitus. Wound care nurse is following the patient for management Wound care nurse recommending waiting specialty bed, do not have patient increase, recommended Santyl wound care Mood disorder, depression Patient was evaluated by psychiatrist. Psychiatrist recommended Prozac Diabetes Glucose well controlled, patient still required 5 units of insulin in the last week. Discontinued Accu-Cheks and sliding scale insulin DVT Prophylaxis: Lovenox, TEDs/SCDs. Discharge Planning Case management for discharge planning. Last documentation indicates that they' re awaiting Medicaid for placement Ede Richardson November 15, 2016 09:19
[2016-11-15] MEDS: METOPROLOL TARTRATE 25 MG TAB PEG SCH ×2 (09:20→21:59)
[2016-11-15] MEDS: predniSONE 20 MG TAB PEG SCH (09:20)
[2016-11-15] MEDS: LACTOBACILLUS ACIDOPHILUS TAB PEG SCH ×2 (09:20→21:59)
[2016-11-15] MEDS: SENNOSIDES SYRUP 8.8 MG/5 ML CUP PEG SCH (09:20)
[2016-11-15] MEDS: IBUPROFEN SUSP 100 MG/5 ML UDC PEG PRN (09:30)
[2016-11-15] MEDS: ENOXAPARIN SODIUM 40 MG/0.4 ML SYRINGE SQ SCH (09:30)
[2016-11-15] MEDS: LANSOPRAZOLE SOLUTAB 30 MG TAB PEG SCH ×2 (09:30→21:59)
[2016-11-15] MEDS: FLUoxetine HCL LIQUID 20 MG/5 ML CUP PEG SCH (09:30)
[2016-11-15 20:00] VITALS: BP 117/87; PULSE 88; RESP 16; TEMP 96.3; O2SAT 99
[2016-11-16] MEDS: azaTHIOprine 50 MG TAB PEG SCH ×2 (05:38→18:34)
[2016-11-16 08:50] VITALS: BP 119/89; PULSE 107; RESP 18; TEMP 98.1; O2SAT 98
--- NOTE | 2016-11-16 09:18 | HHI.PR ---
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 Patient resting comfortably in bed. Does not indicate any new problems. No change in clinical status. Objective Vitals Vital Signs Date Time Temp Pulse Resp B/P Pulse Ox O2 Delivery O2 Flow Rate FiO2 11/16/16 08:50 98.1 107 18 119/89 98 11/15/16 20:00 96.3 88 16 117/87 99 I/O 11/15/16 11/15/16 11/15/16 11/16/16 11/16/16 11/16/16 07:00 15:00 23:00 07:00 15:00 23:00 Intake Total 1050 ml 0 ml Balance 1050 ml 0 ml Intake Oral 0 ml Tube Feeding 650 ml Other 400 ml # Voids 4 5 2 3 # Bowel Movements 1 2 1 2 Objective Remarks GENERAL: Well-developed, cachectic. Appears to be alert but nonverbal. Denies pain. Patient lying in position. With multiple contractions HEENT: Head is normocephalic without any lesions or masses noted. Facial features are symmetric. Eyes: Extraocular muscles are intact. Conjunctivae were clear. NECK: Supple without any masses. Trachea midline no deviation. No JVD, CARDIAC: Regular rhythm, tachycardia noted. S1/S2 are heard. No murmurs gallops or rubs. LUNGS: Clear to auscultation bilaterally. No wheeze, rhonchi or rales. No use of accessory muscles on inspiration or expiration. ABDOMEN: Soft, nontender. Nondistended. Bowel sounds heard in all 4 quadrants. No organomegaly or masses. Negative rebound, negative guarding. PEG tube noted without any excoriation. EXTREMITIES: No edema, pulses are equal bilaterally. No cyanosis or clubbing Procedures 07/19/16 EGD with PEG tube placement 09/27/16 colonoscopy Urinary Catheter: No Vascular Central Line Catheter: No A/P Assessment and Plan Neuro-Behcet, history of frontal lobe CVA, encephalopathy, history of meningitis , chronic No new changes on imaging. Patient was followed by neurology. Aphasic at baseline. Continue Imuran, prednisone EEG shows mild to moderate slowing at times of various depending on the epoch, there was no epileptic activity seen Continue PT/OT Palliative care following the patient and is still indicating the patient is making his own decisions, full code and full aggressive measures Sinus tachycardia. Chronic Lopressor 25 mg twice daily. TSH, free T3, free T4 colon were normal Melena, bright red blood in stool, resolved Status post transfusion, emergency transferred to [facility], emergent endoscopy GI evaluated and managed patient with emergent colonoscopy showing small ulcer in the colon Continue Prevacid Sepsis, multiple episodes, resolved at this time Patient does have rather significant coccyx decubitus wound: Wound culture with pseudo fluorescens/putida, group D enterococcus VRE which is sensitive to Zosyn. Patient did have one urine culture of Daphney parapsilosis, was treated with fluconazole for 10 days. --Patient had episode of diarrhea, C. difficile cultures performed which was negative. --Possible aseptic meningitis Infectious disease consulted and last seen the patient on 10/18/16, at that time it was indicated to observe off antibiotics. 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 Would benefit from long-term steroids Prerenal azotemia, resolved Continue IV fluids Continue monitor renal function Hypernatremia, resolved Continue free water flushes 200 cc every 4 hours Continue IV fluids Monitor sodium level Decreased oral intake and dysphagia on initial presentation Speech therapy following intermittently. S/P barium swallow. Patient with severe dysphagia. GI consulted and PEG tube was placed. Dietary recommending Glucerna 1.5 at 70 mL's an hour with Maury twice daily, Coccyx decubitus. Wound care nurse is following the patient for management Wound care nurse recommending waiting specialty bed, do not have patient increase, recommended [facility] wound care Mood disorder, depression Patient was evaluated by psychiatrist. Psychiatrist recommended Prozac Diabetes Glucose well controlled, patient still required 5 units of insulin in the last week. Discontinued Accu-Cheks and sliding scale insulin DVT Prophylaxis: Lovenox, TEDs/SCDs. Discharge Planning Case management for discharge planning. Last documentation indicates that they' re awaiting Medicaid for placement Ede Richardson November 16, 2016 09:18
[2016-11-16] MEDS: JUVEN POWDER 1 PACK G-TUBE SCH ×2 (09:30→21:00)
[2016-11-16] MEDS: ENOXAPARIN SODIUM 40 MG/0.4 ML SYRINGE SQ SCH (09:59)
[2016-11-16] MEDS: LANSOPRAZOLE SOLUTAB 30 MG TAB PEG SCH ×2 (09:59→21:26)
[2016-11-16] MEDS: predniSONE 20 MG TAB PEG SCH (09:59)
[2016-11-16] MEDS: ACETAMINOPHEN/HYDROcodone 325 MG/5 MG TAB PEG PRN (10:00)
[2016-11-16] MEDS: LACTOBACILLUS ACIDOPHILUS TAB PEG SCH ×2 (10:01→21:26)
[2016-11-16] MEDS: METOPROLOL TARTRATE 25 MG TAB PEG SCH ×2 (10:01→21:26)
[2016-11-16] MEDS: FLUoxetine HCL LIQUID 20 MG/5 ML CUP PEG SCH (10:01)
[2016-11-16] MEDS: COLLAGENASE OINT 30 GM TUBE TOP SCH (10:01)
[2016-11-16] MEDS: SENNOSIDES SYRUP 8.8 MG/5 ML CUP PEG SCH (10:01)
[2016-11-16] MEDS: LACTIC ACID (AMMONIUM LACTATE) 12% LOTION 225 GM BTL TOPICAL SCH ×2 (10:02→21:26)
[2016-11-16 20:00] VITALS: BP 120/93; PULSE 96; RESP 15; TEMP 99.5; O2SAT 100
[2016-11-17] MEDS: azaTHIOprine 50 MG TAB PEG SCH ×2 (05:32→18:04)
[2016-11-17 08:00] VITALS: BP 118/84; PULSE 82; RESP 22; TEMP 98.4; O2SAT 99
[2016-11-17] MEDS: JUVEN POWDER 1 PACK G-TUBE SCH ×2 (09:00→23:01)
[2016-11-17] MEDS: SENNOSIDES SYRUP 8.8 MG/5 ML CUP PEG SCH (10:32)
[2016-11-17] MEDS: ENOXAPARIN SODIUM 40 MG/0.4 ML SYRINGE SQ SCH (10:32)
[2016-11-17] MEDS: predniSONE 20 MG TAB PEG SCH (10:32)
[2016-11-17] MEDS: FLUoxetine HCL LIQUID 20 MG/5 ML CUP PEG SCH (10:32)
[2016-11-17] MEDS: LACTOBACILLUS ACIDOPHILUS TAB PEG SCH ×2 (10:32→23:00)
[2016-11-17] MEDS: METOPROLOL TARTRATE 25 MG TAB PEG SCH ×2 (10:32→23:00)
[2016-11-17] MEDS: LANSOPRAZOLE SOLUTAB 30 MG TAB PEG SCH ×2 (10:32→23:00)
[2016-11-17] MEDS: LACTIC ACID (AMMONIUM LACTATE) 12% LOTION 225 GM BTL TOPICAL SCH ×2 (10:33→23:01)
[2016-11-17] MEDS: COLLAGENASE OINT 30 GM TUBE TOP SCH (10:33)
--- NOTE | 2016-11-17 11:31 | HHI.PR ---
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 Patient not indicate any new complaints or conditions. Discussed care with wound care nurse about sacral wound. Objective Vitals Vital Signs Date Time Temp Pulse Resp B/P Pulse Ox O2 Delivery O2 Flow Rate FiO2 11/17/16 08:00 98.4 82 22 118/84 99 11/16/16 20:00 99.5 96 15 120/93 100 I/O 11/16/16 11/16/16 11/16/16 11/17/16 11/17/16 11/17/16 07:00 15:00 23:00 07:00 15:00 23:00 Intake Total 1185 ml 0 ml Balance 1185 ml 0 ml Intake Oral 0 ml Tube Feeding 585 ml Other 600 ml # Voids 3 3 1 1 # Bowel Movements 2 0 1 0 Objective Remarks GENERAL: Well-developed, cachectic. Appears to be alert but nonverbal. Denies pain. Patient lying in position. With multiple contractions HEENT: Head is normocephalic without any lesions or masses noted. Facial features are symmetric. Eyes: Extraocular muscles are intact. Conjunctivae were clear. NECK: Supple without any masses. Trachea midline no deviation. No JVD, CARDIAC: Regular rhythm, tachycardia noted. S1/S2 are heard. No murmurs gallops or rubs. LUNGS: Clear to auscultation bilaterally. No wheeze, rhonchi or rales. No use of accessory muscles on inspiration or expiration. ABDOMEN: Soft, nontender. Nondistended. Bowel sounds heard in all 4 quadrants. No organomegaly or masses. Negative rebound, negative guarding. PEG tube noted without any excoriation. EXTREMITIES: No edema, pulses are equal bilaterally. No cyanosis or clubbing Procedures 07/19/16 EGD with PEG tube placement 09/27/16 colonoscopy Urinary Catheter: No Vascular Central Line Catheter: No A/P Assessment and Plan Neuro-Behcet, history of frontal lobe CVA, encephalopathy, history of meningitis , chronic No new changes on imaging. Patient was followed by neurology. Aphasic at baseline. Continue Imuran, prednisone EEG shows mild to moderate slowing at times of various depending on the epoch, there was no epileptic activity seen Continue PT/OT Palliative care following the patient and is still indicating the patient is making his own decisions, full code and full aggressive measures Sinus tachycardia. Chronic Lopressor 25 mg twice daily. TSH, free T3, free T4 colon were normal Melena, bright red blood in stool, resolved Status post transfusion, emergency transferred to [facility], emergent endoscopy GI evaluated and managed patient with emergent colonoscopy showing small ulcer in the colon Continue Prevacid Sepsis, multiple episodes, resolved at this time Patient does have rather significant coccyx decubitus wound: Wound culture with pseudo fluorescens/putida, group D enterococcus VRE which is sensitive to Zosyn. Patient did have one urine culture of Daphney parapsilosis, was treated with fluconazole for 10 days. --Patient had episode of diarrhea, C. difficile cultures performed which was negative. --Possible aseptic meningitis Infectious disease consulted and last seen the patient on 10/18/16, at that time it was indicated to observe off antibiotics. 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 Would benefit from long-term steroids Prerenal azotemia, resolved Continue IV fluids Continue monitor renal function Hypernatremia, resolved Continue free water flushes 200 cc every 4 hours Continue IV fluids Monitor sodium level Decreased oral intake and dysphagia on initial presentation Speech therapy following intermittently. S/P barium swallow. Patient with severe dysphagia. GI consulted and PEG tube was placed. Dietary recommending Glucerna 1.5 at 70 mL's an hour with Maury twice daily, Coccyx decubitus. Wound care nurse is following the patient for management Wound care nurse recommending wound care Patient with specialty bed Mood disorder, depression Patient was evaluated by psychiatrist. Psychiatrist recommended Prozac Diabetes Glucose well controlled, patient still required 5 units of insulin in the last week. Discontinued Accu-Cheks and sliding scale insulin DVT Prophylaxis: Lovenox, TEDs/SCDs. Discharge Planning Case management for discharge planning. Last documentation indicates that they' re awaiting Medicaid for placement Ede Richardson November 17, 2016 11:31
[2016-11-17 20:00] VITALS: BP 107/76; PULSE 90; RESP 21; TEMP 98.2; O2SAT 98
[2016-11-18] MEDS: azaTHIOprine 50 MG TAB PEG SCH ×2 (06:31→16:29)
[2016-11-18 08:00] VITALS: BP 101/80; PULSE 75; RESP 18; TEMP 97.6; O2SAT 100
[2016-11-18] MEDS: LACTIC ACID (AMMONIUM LACTATE) 12% LOTION 225 GM BTL TOPICAL SCH ×2 (09:00→21:22)
[2016-11-18] MEDS: ENOXAPARIN SODIUM 40 MG/0.4 ML SYRINGE SQ SCH (09:00)
[2016-11-18] MEDS: predniSONE 20 MG TAB PEG SCH (09:00)
[2016-11-18] MEDS: LACTOBACILLUS ACIDOPHILUS TAB PEG SCH ×2 (09:00→21:20)
[2016-11-18] MEDS: METOPROLOL TARTRATE 25 MG TAB PEG SCH ×2 (09:00→21:20)
[2016-11-18] MEDS: LANSOPRAZOLE SOLUTAB 30 MG TAB PEG SCH ×2 (09:00→21:20)
[2016-11-18] MEDS: SENNOSIDES SYRUP 8.8 MG/5 ML CUP PEG SCH (09:00)
[2016-11-18] MEDS: COLLAGENASE OINT 30 GM TUBE TOP SCH (09:00)
[2016-11-18] MEDS: FLUoxetine HCL LIQUID 20 MG/5 ML CUP PEG SCH (09:00)
[2016-11-18] MEDS: JUVEN POWDER 1 PACK G-TUBE SCH ×2 (09:00→21:00)
--- NOTE | 2016-11-18 11:08 | HHI.PR ---
Subjective Remarks Patient seen and examined today for follow-up on neuro-Behcet's. Patient denies any new complaints. No change in clinical status. Patient just finished with physical therapy Objective Vitals Vital Signs Date Time Temp Pulse Resp B/P Pulse Ox O2 Delivery O2 Flow Rate FiO2 11/18/16 08:00 97.6 75 18 101/80 100 11/17/16 20:00 98.2 90 21 107/76 98 I/O 11/17/16 11/17/16 11/17/16 11/18/16 11/18/16 11/18/16 07:00 15:00 23:00 07:00 15:00 23:00 Intake Total 2480 ml Balance 2480 ml Intake Oral 0 ml Tube Feeding 1680 ml Other 800 ml # Voids 1 5 3 # Bowel Movements 0 1 2 Objective Remarks GENERAL: Well-developed, cachectic. Appears to be alert but nonverbal. Denies pain. Patient lying in position. With multiple contractions HEENT: Head is normocephalic without any lesions or masses noted. Facial features are symmetric. Eyes: Extraocular muscles are intact. Conjunctivae were clear. NECK: Supple without any masses. Trachea midline no deviation. No JVD, CARDIAC: Regular rhythm, tachycardia noted. S1/S2 are heard. No murmurs gallops or rubs. LUNGS: Clear to auscultation bilaterally. No wheeze, rhonchi or rales. No use of accessory muscles on inspiration or expiration. ABDOMEN: Soft, nontender. Nondistended. Bowel sounds heard in all 4 quadrants. No organomegaly or masses. Negative rebound, negative guarding. PEG tube noted without any excoriation. EXTREMITIES: No edema, pulses are equal bilaterally. No cyanosis or clubbing Procedures 07/19/16 EGD with PEG tube placement 09/27/16 colonoscopy Urinary Catheter: No Vascular Central Line Catheter: No A/P Assessment and Plan Neuro-Behcet, history of frontal lobe CVA, encephalopathy, history of meningitis , chronic No new changes on imaging. Patient was followed by neurology. Aphasic at baseline. Continue Imuran, prednisone EEG shows mild to moderate slowing at times of various depending on the epoch, there was no epileptic activity seen Continue PT/OT Palliative care following the patient and is still indicating the patient is making his own decisions, full code and full aggressive measures Sinus tachycardia. Chronic Lopressor 25 mg twice daily. TSH, free T3, free T4 colon were normal Melena, bright red blood in stool, resolved Status post transfusion, emergency transferred to [facility], emergent endoscopy GI evaluated and managed patient with emergent colonoscopy showing small ulcer in the colon Continue Prevacid Sepsis, multiple episodes, resolved at this time Patient does have rather significant coccyx decubitus wound: Wound culture with pseudo fluorescens/putida, group D enterococcus VRE which is sensitive to Zosyn. Patient did have one urine culture of Daphney parapsilosis, was treated with fluconazole for 10 days. --Patient had episode of diarrhea, C. difficile cultures performed which was negative. --Possible aseptic meningitis Infectious disease consulted and last seen the patient on 10/18/16, at that time it was indicated to observe off antibiotics. 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 Would benefit from long-term steroids Prerenal azotemia, resolved Continue IV fluids Continue monitor renal function Hypernatremia, resolved Continue free water flushes 200 cc every 4 hours Continue IV fluids Monitor sodium level Decreased oral intake and dysphagia on initial presentation Speech therapy following intermittently. S/P barium swallow. Patient with severe dysphagia. GI consulted and PEG tube was placed. Dietary recommending Glucerna 1.5 at 70 mL's an hour with Maury twice daily, Coccyx decubitus. Wound care nurse is following the patient for management Wound care nurse recommending wound care Patient with specialty bed Mood disorder, depression Patient was evaluated by psychiatrist. Psychiatrist recommended Prozac Diabetes Glucose well controlled, patient still required 5 units of insulin in the last week. Discontinued Accu-Cheks and sliding scale insulin DVT Prophylaxis: Lovenox, TEDs/SCDs. Discharge Planning Case management for discharge planning. Last documentation indicates that they' re awaiting Medicaid for placement Ede Richardson November 18, 2016 11:08
[2016-11-18 20:00] VITALS: BP 120/93; PULSE 95; RESP 20; TEMP 96.1; O2SAT 94
[2016-11-19] MEDS: azaTHIOprine 50 MG TAB PEG SCH ×2 (06:34→18:34)
[2016-11-19 08:00] VITALS: BP 122/76; PULSE 91; RESP 18; TEMP 97.6; O2SAT 99
--- NOTE | 2016-11-19 09:20 | HHI.PR ---
Subjective Remarks Patient seen and examined today for follow-up on neuro Behcet's syndrome. Patient indicating that he would like to get turned in bed at this time. Otherwise no new complaints. Objective Vitals Vital Signs Date Time Temp Pulse Resp B/P Pulse Ox O2 Delivery O2 Flow Rate FiO2 11/19/16 08:00 97.6 91 18 122/76 99 11/18/16 20:00 96.1 95 20 120/93 94 I/O 11/18/16 11/18/16 11/18/16 11/19/16 11/19/16 11/19/16 07:00 15:00 23:00 07:00 15:00 23:00 Intake Total 555 ml 1050 ml Balance 555 ml 1050 ml Tube Feeding 455 ml 650 ml Tube Irrigant 400 ml Other 100 ml # Voids 3 2 2 # Bowel Movements 2 2 2 Objective Remarks GENERAL: Well-developed, cachectic. Appears to be alert but nonverbal. Denies pain. Patient lying in position. With multiple contractions HEENT: Head is normocephalic without any lesions or masses noted. Facial features are symmetric. Eyes: Extraocular muscles are intact. Conjunctivae were clear. NECK: Supple without any masses. Trachea midline no deviation. No JVD, CARDIAC: Regular rhythm, tachycardia noted. S1/S2 are heard. No murmurs gallops or rubs. LUNGS: Clear to auscultation bilaterally. No wheeze, rhonchi or rales. No use of accessory muscles on inspiration or expiration. ABDOMEN: Soft, nontender. Nondistended. Bowel sounds heard in all 4 quadrants. No organomegaly or masses. Negative rebound, negative guarding. PEG tube noted without any excoriation. EXTREMITIES: No edema, pulses are equal bilaterally. No cyanosis or clubbing Procedures 07/19/16 EGD with PEG tube placement 09/27/16 colonoscopy Urinary Catheter: No Vascular Central Line Catheter: No A/P Assessment and Plan Neuro-Behcet, history of frontal lobe CVA, encephalopathy, history of meningitis , chronic No new changes on imaging. Patient was followed by neurology. Aphasic at baseline. Continue Imuran, prednisone EEG shows mild to moderate slowing at times of various depending on the epoch, there was no epileptic activity seen Continue PT/OT Palliative care following the patient and is still indicating the patient is making his own decisions, full code and full aggressive measures Sinus tachycardia. Chronic Lopressor 25 mg twice daily. TSH, free T3, free T4 colon were normal Melena, bright red blood in stool, resolved Status post transfusion, emergency transferred to [facility], emergent endoscopy GI evaluated and managed patient with emergent colonoscopy showing small ulcer in the colon Continue Prevacid Sepsis, multiple episodes, resolved at this time Patient does have rather significant coccyx decubitus wound: Wound culture with pseudo fluorescens/putida, group D enterococcus VRE which is sensitive to Zosyn. Patient did have one urine culture of Daphney parapsilosis, was treated with fluconazole for 10 days. --Patient had episode of diarrhea, C. difficile cultures performed which was negative. --Possible aseptic meningitis Infectious disease consulted and last seen the patient on 10/18/16, at that time it was indicated to observe off antibiotics. 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 Would benefit from long-term steroids Prerenal azotemia, resolved Continue IV fluids Continue monitor renal function Hypernatremia, resolved Continue free water flushes 200 cc every 4 hours Continue IV fluids Monitor sodium level Decreased oral intake and dysphagia on initial presentation Speech therapy following intermittently. S/P barium swallow. Patient with severe dysphagia. GI consulted and PEG tube was placed. Dietary recommending Glucerna 1.5 at 70 mL's an hour with Maury twice daily, Coccyx decubitus. Wound care nurse is following the patient for management Wound care nurse recommending wound care Patient with specialty bed Mood disorder, depression Patient was evaluated by psychiatrist. Psychiatrist recommended Prozac Diabetes Glucose well controlled, Discontinued Accu-Cheks and sliding scale insulin DVT Prophylaxis: Lovenox, TEDs/SCDs. Discharge Planning Case management for discharge planning Ede Richardson November 19, 2016 09:19
[2016-11-19] MEDS: JUVEN POWDER 1 PACK G-TUBE SCH ×2 (09:24→21:00)
[2016-11-19] MEDS: ENOXAPARIN SODIUM 40 MG/0.4 ML SYRINGE SQ SCH (09:25)
[2016-11-19] MEDS: SENNOSIDES SYRUP 8.8 MG/5 ML CUP PEG SCH (09:25)
[2016-11-19] MEDS: LANSOPRAZOLE SOLUTAB 30 MG TAB PEG SCH ×2 (09:25→21:38)
[2016-11-19] MEDS: FLUoxetine HCL LIQUID 20 MG/5 ML CUP PEG SCH (09:25)
[2016-11-19] MEDS: LACTOBACILLUS ACIDOPHILUS TAB PEG SCH ×2 (09:25→21:34)
[2016-11-19] MEDS: predniSONE 20 MG TAB PEG SCH (09:25)
[2016-11-19] MEDS: METOPROLOL TARTRATE 25 MG TAB PEG SCH ×2 (09:25→21:34)
[2016-11-19] MEDS: PADIMATE (CHAPSTICK) 4.5 GM TUBE TOPICAL PRN (09:30)
[2016-11-19] MEDS: COLLAGENASE OINT 30 GM TUBE TOP SCH (09:30)
[2016-11-19] MEDS: HYOSCYAMINE SOLN 0.125 MG/ML 15 ML BTL PEG PRN (09:31)
[2016-11-19] MEDS: LACTIC ACID (AMMONIUM LACTATE) 12% LOTION 225 GM BTL TOPICAL SCH ×2 (09:36→21:34)
[2016-11-19 20:00] VITALS: BP 111/83; PULSE 83; RESP 22; TEMP 97.5; O2SAT 98
[2016-11-20] MEDS: azaTHIOprine 50 MG TAB PEG SCH ×2 (05:57→17:47)
[2016-11-20 08:43] VITALS: BP 100/78; PULSE 84; RESP 16; TEMP 96.3; O2SAT 98
[2016-11-20] MEDS: JUVEN POWDER 1 PACK G-TUBE SCH ×2 (09:00→21:00)
[2016-11-20] MEDS: METOPROLOL TARTRATE 25 MG TAB PEG SCH ×2 (09:00→21:26)
[2016-11-20] MEDS: predniSONE 20 MG TAB PEG SCH (09:50)
[2016-11-20] MEDS: FLUoxetine HCL LIQUID 20 MG/5 ML CUP PEG SCH (09:50)
[2016-11-20] MEDS: SENNOSIDES SYRUP 8.8 MG/5 ML CUP PEG SCH (09:50)
[2016-11-20] MEDS: LANSOPRAZOLE SOLUTAB 30 MG TAB PEG SCH ×2 (09:50→21:26)
[2016-11-20] MEDS: ENOXAPARIN SODIUM 40 MG/0.4 ML SYRINGE SQ SCH (09:50)
[2016-11-20] MEDS: LACTOBACILLUS ACIDOPHILUS TAB PEG SCH ×2 (09:50→21:25)
[2016-11-20] MEDS: PADIMATE (CHAPSTICK) 4.5 GM TUBE TOPICAL PRN (09:51)
[2016-11-20] MEDS: LACTIC ACID (AMMONIUM LACTATE) 12% LOTION 225 GM BTL TOPICAL SCH ×2 (09:51→21:26)
[2016-11-20] MEDS: COLLAGENASE OINT 30 GM TUBE TOP SCH (09:52)
--- NOTE | 2016-11-20 12:48 | HHI.PR ---
Subjective Remarks Patient seen today. Patient was sleeping upon entering the room. Nursing staff does not indicate any new complaints or any concerns. Objective Vitals Vital Signs Date Time Temp Pulse Resp B/P Pulse Ox O2 Delivery O2 Flow Rate FiO2 11/20/16 08:43 96.3 84 16 100/78 98 11/19/16 20:00 97.5 83 22 111/83 98 I/O 11/19/16 11/19/16 11/19/16 11/20/16 11/20/16 11/20/16 07:00 15:00 23:00 07:00 15:00 23:00 Intake Total 1050 ml 1280 ml 0 ml Output Total 0 ml Balance 1050 ml 0 ml 1280 ml 0 ml Intake Oral 0 ml Tube Feeding 650 ml 780 ml Tube Irrigant 400 ml Other 500 ml Tube Feeding Residual Discard 0 ml # Voids 2 1 2 # Bowel Movements 2 1 1 Objective Remarks GENERAL: Well-developed, cachectic. Patient sleeping upon entering the room Procedures 07/19/16 EGD with PEG tube placement 09/27/16 colonoscopy Urinary Catheter: No Vascular Central Line Catheter: No A/P Assessment and Plan Neuro-Behcet, history of frontal lobe CVA, encephalopathy, history of meningitis , chronic No new changes on imaging. Patient was followed by neurology. Aphasic at baseline. Continue Imuran, prednisone EEG shows mild to moderate slowing at times of various depending on the epoch, there was no epileptic activity seen Continue PT/OT Palliative care following the patient and is still indicating the patient is making his own decisions, full code and full aggressive measures Sinus tachycardia. Chronic Lopressor 25 mg twice daily. TSH, free T3, free T4 colon were normal Melena, bright red blood in stool, resolved Status post transfusion, emergency transferred to Main hospital, emergent endoscopy GI evaluated and managed patient with emergent colonoscopy showing small ulcer in the colon Continue Prevacid Sepsis, multiple episodes, resolved at this time Patient does have rather significant coccyx decubitus wound: Wound culture with pseudo fluorescens/putida, group D enterococcus VRE which is sensitive to Zosyn. Patient did have one urine culture of Daphney parapsilosis, was treated with fluconazole for 10 days. --Patient had episode of diarrhea, C. difficile cultures performed which was negative. --Possible aseptic meningitis Infectious disease consulted and last seen the patient on 10/18/16, at that time it was indicated to observe off antibiotics. 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 Would benefit from long-term steroids Prerenal azotemia, resolved Continue IV fluids Continue monitor renal function Hypernatremia, resolved Continue free water flushes 200 cc every 4 hours Continue IV fluids Monitor sodium level Decreased oral intake and dysphagia on initial presentation Speech therapy following intermittently. S/P barium swallow. Patient with severe dysphagia. GI consulted and PEG tube was placed. Dietary recommending Glucerna 1.5 at 70 mL's an hour with Maury twice daily, Coccyx decubitus. Wound care nurse is following the patient for management Wound care nurse recommending wound care Patient with specialty bed Mood disorder, depression Patient was evaluated by psychiatrist. Psychiatrist recommended Prozac Diabetes Glucose well controlled, Discontinued Accu-Cheks and sliding scale insulin DVT Prophylaxis: [place], TEDs/SCDs. Discharge Planning Case management for discharge planning Ede Richardson November 20, 2016 12:48
[2016-11-20 20:00] VITALS: BP 114/91; PULSE 101; RESP 20; TEMP 98.1; O2SAT 99
[2016-11-21] MEDS: azaTHIOprine 50 MG TAB PEG SCH ×2 (05:29→17:26)
[2016-11-21 08:00] VITALS: BP 109/80; PULSE 90; RESP 18; TEMP 98.2; O2SAT 95
[2016-11-21] MEDS: METOPROLOL TARTRATE 25 MG TAB PEG SCH ×2 (09:00→21:26)
[2016-11-21] MEDS: JUVEN POWDER 1 PACK G-TUBE SCH ×2 (09:00→21:00)
[2016-11-21] MEDS: predniSONE 20 MG TAB PEG SCH (09:40)
[2016-11-21] MEDS: LACTOBACILLUS ACIDOPHILUS TAB PEG SCH ×2 (09:40→21:26)
[2016-11-21] MEDS: ENOXAPARIN SODIUM 40 MG/0.4 ML SYRINGE SQ SCH (09:40)
[2016-11-21] MEDS: LACTIC ACID (AMMONIUM LACTATE) 12% LOTION 225 GM BTL TOPICAL SCH ×2 (09:40→21:27)
[2016-11-21] MEDS: FLUoxetine HCL LIQUID 20 MG/5 ML CUP PEG SCH (09:40)
[2016-11-21] MEDS: SENNOSIDES SYRUP 8.8 MG/5 ML CUP PEG SCH (09:40)
[2016-11-21] MEDS: LANSOPRAZOLE SOLUTAB 30 MG TAB PEG SCH ×2 (09:40→21:26)
[2016-11-21] MEDS: COLLAGENASE OINT 30 GM TUBE TOP SCH (09:41)
--- NOTE | 2016-11-21 09:55 | HHI.PR ---
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 Patient denies any new complaints. However he did start crying when I was in the room. This is a rather unfortunate case and situation. Objective Vitals Vital Signs Date Time Temp Pulse Resp B/P Pulse Ox O2 Delivery O2 Flow Rate FiO2 11/21/16 08:00 98.2 90 18 109/80 95 11/20/16 20:00 98.1 101 20 114/91 99 I/O 11/20/16 11/20/16 11/20/16 11/21/16 11/21/16 11/21/16 07:00 15:00 23:00 07:00 15:00 23:00 Intake Total 0 ml 855 ml 260 ml 940 ml Balance 0 ml 855 ml 260 ml 940 ml Intake Oral 0 ml 0 ml 0 ml Tube Feeding 455 ml 260 ml 780 ml Tube Irrigant 160 ml Other 400 ml # Voids 2 3 1 2 # Bowel Movements 1 1 0 0 Objective Remarks GENERAL: Well-developed, cachectic. Patient sleeping upon entering the room HEENT: Head is normocephalic without any lesions or masses noted. Facial features are symmetric. Eyes: Extraocular muscles are intact. Conjunctivae were clear. NECK: Supple without any masses. Trachea midline no deviation. No JVD, CARDIAC: Regular rhythm, tachycardia noted. S1/S2 are heard. No murmurs gallops or rubs. LUNGS: Clear to auscultation bilaterally. No wheeze, rhonchi or rales. No use of accessory muscles on inspiration or expiration. ABDOMEN: Soft, nontender. Nondistended. Bowel sounds heard in all 4 quadrants. No organomegaly or masses. Negative rebound, negative guarding. PEG tube noted without any excoriation. EXTREMITIES: No edema, pulses are equal bilaterally. No cyanosis or clubbing Procedures 07/19/16 EGD with PEG tube placement 09/27/16 colonoscopy Urinary Catheter: No Vascular Central Line Catheter: No A/P Assessment and Plan Neuro-Behcet, history of frontal lobe CVA, encephalopathy, history of meningitis , chronic No new changes on imaging. Patient was followed by neurology. Aphasic at baseline. Continue Imuran, prednisone EEG shows mild to moderate slowing at times of various depending on the epoch, there was no epileptic activity seen Continue PT/OT Palliative care following the patient and is still indicating the patient is making his own decisions, full code and full aggressive measures Sinus tachycardia. Chronic Lopressor 25 mg twice daily. TSH, free T3, free T4 colon were normal Melena, bright red blood in stool, resolved Status post transfusion, emergency transferred to Main hospital, emergent endoscopy GI evaluated and managed patient with emergent colonoscopy showing small ulcer in the colon Continue Prevacid Sepsis, multiple episodes, resolved at this time Patient does have rather significant coccyx decubitus wound: Wound culture with pseudo fluorescens/putida, group D enterococcus VRE which is sensitive to Zosyn. Patient did have one urine culture of Daphney parapsilosis, was treated with fluconazole for 10 days. --Patient had episode of diarrhea, C. difficile cultures performed which was negative. --Possible aseptic meningitis Infectious disease consulted and last seen the patient on 10/18/16, at that time it was indicated to observe off antibiotics. 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 Would benefit from long-term steroids Prerenal azotemia, resolved Continue IV fluids Continue monitor renal function Hypernatremia, resolved Continue free water flushes 200 cc every 4 hours Continue IV fluids Monitor sodium level Decreased oral intake and dysphagia on initial presentation Speech therapy following intermittently. S/P barium swallow. Patient with severe dysphagia. GI consulted and PEG tube was placed. Dietary recommending Glucerna 1.5 at 70 mL's an hour with Maury twice daily, Coccyx decubitus. Wound care nurse is following the patient for management Wound care nurse recommending wound care Patient with specialty bed Mood disorder, depression Patient was evaluated by psychiatrist. Psychiatrist recommended Prozac Diabetes Glucose well controlled, Discontinued Accu-Cheks and sliding scale insulin DVT Prophylaxis: Lovenox, TEDs/SCDs. Discharge Planning Case management for discharge planning Ede Richardson November 21, 2016 09:55
[2016-11-21 20:00] VITALS: BP 127/75; PULSE 93; RESP 20; TEMP 97.1; O2SAT 100
[2016-11-22] MEDS: azaTHIOprine 50 MG TAB PEG SCH ×2 (05:40→16:52)
[2016-11-22 08:00] VITALS: BP 111/85; PULSE 88; RESP 20; TEMP 98.5; O2SAT 96
[2016-11-22] MEDS: ENOXAPARIN SODIUM 40 MG/0.4 ML SYRINGE SQ SCH (08:24)
[2016-11-22] MEDS: LACTOBACILLUS ACIDOPHILUS TAB PEG SCH ×2 (08:24→21:05)
[2016-11-22] MEDS: FLUoxetine HCL LIQUID 20 MG/5 ML CUP PEG SCH (08:24)
[2016-11-22] MEDS: predniSONE 20 MG TAB PEG SCH (08:25)
[2016-11-22] MEDS: JUVEN POWDER 1 PACK G-TUBE SCH ×2 (08:25→21:04)
[2016-11-22] MEDS: METOPROLOL TARTRATE 25 MG TAB PEG SCH ×2 (08:25→21:05)
[2016-11-22] MEDS: LANSOPRAZOLE SOLUTAB 30 MG TAB PEG SCH ×2 (08:25→21:05)
[2016-11-22] MEDS: SENNOSIDES SYRUP 8.8 MG/5 ML CUP PEG SCH (08:25)
[2016-11-22] MEDS: COLLAGENASE OINT 30 GM TUBE TOP SCH (08:26)
[2016-11-22] MEDS: LACTIC ACID (AMMONIUM LACTATE) 12% LOTION 225 GM BTL TOPICAL SCH ×2 (08:26→21:05)
[2016-11-22] MEDS: PADIMATE (CHAPSTICK) 4.5 GM TUBE TOPICAL PRN (08:26)
--- NOTE | 2016-11-22 12:40 | HHI.PR ---
Subjective Remarks Follow-up for neuro Behet's syndrome. Patient denies any pain today. Objective Vitals Vital Signs Date Time Temp Pulse Resp B/P Pulse Ox O2 Delivery O2 Flow Rate FiO2 11/22/16 08:00 98.5 88 20 111/85 96 11/21/16 20:00 97.1 93 20 127/75 100 I/O 11/21/16 11/21/16 11/21/16 11/22/16 11/22/16 11/22/16 07:00 15:00 23:00 07:00 15:00 23:00 Intake Total 940 ml 1300 ml 1100 ml Balance 940 ml 1300 ml 1100 ml Intake Oral 0 ml Tube Feeding 780 ml 700 ml 700 ml Tube Irrigant 160 ml 200 ml 400 ml Other 400 ml # Voids 2 5 3 # Bowel Movements 0 1 3 Objective Remarks GENERAL: Thin patient in no apparent distress. SKIN: Ulceration to R lateral malleolus. CARDIOVASCULAR: Regular rate and rhythm. RESPIRATORY: CTAB. GASTROINTESTINAL: Abdomen soft, non-tender, nondistended. NEUROLOGICAL: Awake and alert. Nods head to answer questions. Non-verbal. 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 Patient followed by neurology. Aphasic at baseline. Neurology following the patient Continue Imuran, prednisone EEG shows mild to moderate slowing at times of various depending on the epoch, there was no epileptic activity seen Continue PT/OT Palliative care following the patient and is still indicating the patient is making his own decisions, full code and full aggressive measures [place] as needed for pain. Sinus tachycardia: chronic Lopressor 25 mg twice daily. TSH, free T3, free T4 were normal Melena, bright red blood in stool: Resolved Status post transfusion, emergently transferred to main hospital, emergent endoscopy GI evaluated and managed patient with emergent colonoscopy showing small ulcer in the colon Continue Prevacid Hemoglobin stable at 11.4 on 11/04. Sepsis, multiple episodes: Resolved at this time Patient does have rather significant coccyx decubitus wound: Wound culture with pseudo fluorescens/putida, group D enterococcus VRE which is sensitive to Zosyn. Patient did have one urine culture of Daphney parapsilosis, was treated with fluconazole for 10 days. --Patient had episode of diarrhea, C. difficile cultures performed which was negative. --Possible aseptic meningitis Infectious disease consulted and last seen the patient on 10/18/16, at that time it was indicated to observe off antibiotics. 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 Would benefit from long-term steroids. Prerenal azotemia: Improved Continue IV fluids Continue to monitor renal function Hypernatremia: Resolved Continue free water flushes 200 cc every 4 hours Continue IV fluids Monitor sodium level Decreased oral intake and dysphagia on initial presentation Speech therapy following intermittently. S/P barium swallow. Patient with severe dysphagia. GI consulted and PEG tube was placed. Dietary recommending Glucerna 1.5 at 70 mL/hour with Maury twice daily. Coccyx decubitus: Wound care nurse is following the patient for management. Recommends continuing to change dressings with Santyl ointment and cleanse with normal saline only. Do not apply briefs to patient. Specialty bed ordered. Ankle ulcer: R lateral malleolus, dry. -Nurse is advised patient needs to be wearing foam heel protectors. Wound care has evaluated, recommends painting area with skin prep or Betadine bid and leave open to air. Depression Patient was evaluated by psychiatrist. 11/12: Prozac increased to 20 mg daily. Diabetes Glucose well controlled. Discontinued Accu-Cheks and sliding scale insulin Possible conjunctivitis: Resolved. -S/p Polytrim drops. DVT Prophylaxis: Lovenox, TEDs/SCDs. Discharge Planning 11/08: CM requested [facility] to evaluate for placement. Problem Qualifiers (1) GI bleed: Qualified Code: K92.2 - Gastrointestinal hemorrhage, unspecified gastrointestinal hemorrhage type (2) UTI (urinary tract infection): Qualified Code: N30.00 - Acute cystitis without hematuria (3) Effusion of hip joint: Qualified Code: M25.459 - Effusion of hip joint, unspecified laterality Mari Talamantes November 22, 2016 12:40
[2016-11-22 20:00] VITALS: BP 105/82; PULSE 89; RESP 20; TEMP 96.7; O2SAT 100
[2016-11-23] MEDS: azaTHIOprine 50 MG TAB PEG SCH ×2 (06:25→17:33)
[2016-11-23 08:00] VITALS: BP 104/82; PULSE 103; RESP 18; TEMP 97.6; O2SAT 96
[2016-11-23] MEDS: JUVEN POWDER 1 PACK G-TUBE SCH ×2 (09:00→21:17)
[2016-11-23] MEDS: LACTOBACILLUS ACIDOPHILUS TAB PEG SCH ×2 (09:00→21:17)
[2016-11-23] MEDS: METOPROLOL TARTRATE 25 MG TAB PEG SCH ×2 (09:00→21:18)
[2016-11-23] MEDS: COLLAGENASE OINT 30 GM TUBE TOP SCH (09:00)
[2016-11-23] MEDS: ENOXAPARIN SODIUM 40 MG/0.4 ML SYRINGE SQ SCH (10:19)
[2016-11-23] MEDS: predniSONE 20 MG TAB PEG SCH (10:19)
[2016-11-23] MEDS: FLUoxetine HCL LIQUID 20 MG/5 ML CUP PEG SCH (10:20)
[2016-11-23] MEDS: LANSOPRAZOLE SOLUTAB 30 MG TAB PEG SCH ×2 (10:20→21:18)
[2016-11-23] MEDS: SENNOSIDES SYRUP 8.8 MG/5 ML CUP PEG SCH (10:20)
[2016-11-23] MEDS: LACTIC ACID (AMMONIUM LACTATE) 12% LOTION 225 GM BTL TOPICAL SCH ×2 (10:21→21:18)
--- NOTE | 2016-11-23 13:38 | HHI.PR ---
Subjective Remarks Follow-up for neuro Behet's syndrome. He appears emotional grunting trying to express himself. Patient denies any pain. Objective Vitals Vital Signs Date Time Temp Pulse Resp B/P Pulse Ox O2 Delivery O2 Flow Rate FiO2 11/23/16 08:00 97.6 103 18 104/82 96 11/22/16 20:00 96.7 89 20 105/82 100 I/O 11/22/16 11/22/16 11/22/16 11/23/16 11/23/16 11/23/16 07:00 15:00 23:00 07:00 15:00 23:00 Intake Total 1100 ml Output Total 2 ml Balance 1100 ml -2 ml Tube Feeding 700 ml Tube Irrigant 400 ml Stool Total 2 ml # Voids 3 6 2 # Bowel Movements 3 1 Objective Remarks GENERAL: Thin patient in no apparent distress. CARDIOVASCULAR: Tachycardic rate with regular rhythm. RESPIRATORY: CTAB. GASTROINTESTINAL: Abdomen soft, non-tender, nondistended. NEUROLOGICAL: Awake and alert. Nods head to answer questions. Non-verbal but grunts. PSYCHIATRIC: Sad mood and affect. 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 Patient followed by neurology. Aphasic at baseline. Neurology following the patient Continue Imuran, prednisone EEG shows mild to moderate slowing at times of various depending on the epoch, there was no epileptic activity seen Continue PT/OT Palliative care following the patient and is still indicating the patient is making his own decisions, full code and full aggressive measures [place] as needed for pain. Sinus tachycardia: chronic Lopressor 25 mg twice daily. TSH, free T3, free T4 were normal Melena, bright red blood in stool: Resolved Status post transfusion, emergently transferred to main hospital, emergent endoscopy GI evaluated and managed patient with emergent colonoscopy showing small ulcer in the colon Continue Prevacid Hemoglobin stable at 11.4 on 11/04. Sepsis, multiple episodes: Resolved at this time Patient does have rather significant coccyx decubitus wound: Wound culture with pseudo fluorescens/putida, group D enterococcus VRE which is sensitive to Zosyn. Patient did have one urine culture of Daphney parapsilosis, was treated with fluconazole for 10 days. --Patient had episode of diarrhea, C. difficile cultures performed which was negative. --Possible aseptic meningitis Infectious disease consulted and last seen the patient on 10/18/16, at that time it was indicated to observe off antibiotics. 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 Would benefit from long-term steroids. Prerenal azotemia: Improved Continue IV fluids Continue to monitor renal function Hypernatremia: Resolved Continue free water flushes 200 cc every 4 hours Continue IV fluids Monitor sodium level Decreased oral intake and dysphagia on initial presentation Speech therapy following intermittently. S/P barium swallow. Patient with severe dysphagia. GI consulted and PEG tube was placed. Dietary recommending Glucerna 1.5 at 70 mL/hour with Maury twice daily. Coccyx decubitus: Wound care nurse is following the patient for management. Recommends continuing to change dressings with Santyl ointment and cleanse with normal saline only. Do not apply briefs to patient. Specialty bed ordered. Ankle ulcer: R lateral malleolus, dry. -Nurse is advised patient needs to be wearing foam heel protectors. Wound care has evaluated, recommends painting area with skin prep or Betadine bid and leave open to air. Depression Patient was evaluated by psychiatrist. 11/12: Prozac increased to 20 mg daily. Diabetes Glucose well controlled. Discontinued Accu-Cheks and sliding scale insulin Possible conjunctivitis: Resolved. -S/p Polytrim drops. DVT Prophylaxis: Lovenox, TEDs/SCDs. Discharge Planning 11/08: requested [facility] to evaluate for placement. Problem Qualifiers (1) GI bleed: Qualified Code: K92.2 - Gastrointestinal hemorrhage, unspecified gastrointestinal hemorrhage type (2) UTI (urinary tract infection): Qualified Code: N30.00 - Acute cystitis without hematuria (3) Effusion of hip joint: Qualified Code: M25.459 - Effusion of hip joint, unspecified laterality Mari Talamantes November 23, 2016 13:38
[2016-11-23 20:00] VITALS: BP 109/94; PULSE 93; RESP 19; TEMP 98; O2SAT 100
[2016-11-24] MEDS: azaTHIOprine 50 MG TAB PEG SCH ×2 (06:08→16:19)
[2016-11-24 08:21] VITALS: BP 98/81; PULSE 84; RESP 19; TEMP 96.6; O2SAT 99
[2016-11-24] MEDS: METOPROLOL TARTRATE 25 MG TAB PEG SCH ×2 (09:00→21:44)
[2016-11-24] MEDS: JUVEN POWDER 1 PACK G-TUBE SCH ×2 (09:00→21:00)
[2016-11-24] MEDS: ENOXAPARIN SODIUM 40 MG/0.4 ML SYRINGE SQ SCH (09:19)
[2016-11-24] MEDS: LACTIC ACID (AMMONIUM LACTATE) 12% LOTION 225 GM BTL TOPICAL SCH ×2 (09:19→21:00)
[2016-11-24] MEDS: LANSOPRAZOLE SOLUTAB 30 MG TAB PEG SCH ×2 (09:20→21:44)
[2016-11-24] MEDS: SENNOSIDES SYRUP 8.8 MG/5 ML CUP PEG SCH (09:20)
[2016-11-24] MEDS: FLUoxetine HCL LIQUID 20 MG/5 ML CUP PEG SCH (09:20)
[2016-11-24] MEDS: COLLAGENASE OINT 30 GM TUBE TOP SCH (09:20)
[2016-11-24] MEDS: predniSONE 20 MG TAB PEG SCH (09:20)
[2016-11-24] MEDS: LACTOBACILLUS ACIDOPHILUS TAB PEG SCH ×2 (09:20→21:44)
--- NOTE | 2016-11-24 11:14 | HHI.PR ---
Subjective Remarks Follow-up for neuro Behet's syndrome. Patient nods yes when asked if he is okay. Denies any pain. Objective Vitals Vital Signs Date Time Temp Pulse Resp B/P Pulse Ox O2 Delivery O2 Flow Rate FiO2 11/24/16 08:21 96.6 84 19 98/81 99 11/23/16 20:00 98.0 93 19 109/94 100 I/O 11/23/16 11/23/16 11/23/16 11/24/16 11/24/16 11/24/16 07:00 15:00 23:00 07:00 15:00 23:00 Intake Total 940 ml Balance 940 ml Tube Feeding 840 ml Other 100 ml # Voids 2 1 3 # Bowel Movements 1 1 2 Objective Remarks GENERAL: Thin patient in no apparent distress. CARDIOVASCULAR: Tachycardic rate with regular rhythm. RESPIRATORY: CTAB but patient had abnormal breathing which is chronic. GASTROINTESTINAL: Abdomen soft, non-tender, nondistended. NEUROLOGICAL: Awake and alert. Nods head to answer questions. PSYCHIATRIC: Improved affect. 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 Patient followed by neurology. Aphasic at baseline. Neurology following the patient Continue Imuran, prednisone EEG shows mild to moderate slowing at times of various depending on the epoch, there was no epileptic activity seen Continue PT/OT Palliative care following the patient and is still indicating the patient is making his own decisions, full code and full aggressive measures [place] as needed for pain. Sinus tachycardia: chronic Lopressor 25 mg twice daily. TSH, free T3, free T4 were normal Melena, bright red blood in stool: Resolved Status post transfusion, emergently transferred to [facility], emergent endoscopy GI evaluated and managed patient with emergent colonoscopy showing small ulcer in the colon Continue Prevacid Hemoglobin stable at 11.4 on 11/04. Sepsis, multiple episodes: Resolved at this time Patient does have rather significant coccyx decubitus wound: Wound culture with pseudo fluorescens/putida, group D enterococcus VRE which is sensitive to Zosyn. Patient did have one urine culture of Daphney parapsilosis, was treated with fluconazole for 10 days. --Patient had episode of diarrhea, C. difficile cultures performed which was negative. --Possible aseptic meningitis Infectious disease consulted and last seen the patient on 10/18/16, at that time it was indicated to observe off antibiotics. 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 Would benefit from long-term steroids. Prerenal azotemia: Improved Continue IV fluids Continue to monitor renal function Hypernatremia: Resolved Continue free water flushes 200 cc every 4 hours Continue IV fluids Monitor sodium level Decreased oral intake and dysphagia on initial presentation Speech therapy following intermittently. S/P barium swallow. Patient with severe dysphagia. GI consulted and PEG tube was placed. Dietary recommending Glucerna 1.5 at 70 mL/hour with Maury twice daily. Coccyx decubitus: Wound care nurse is following the patient for management. Recommends continuing to change dressings with Santyl ointment and cleanse with normal saline only. Do not apply briefs to patient. Specialty bed ordered. Ankle ulcer: R lateral malleolus, dry. -Nurse is advised patient needs to be wearing foam heel protectors. Wound care has evaluated, recommends painting area with skin prep or Betadine bid and leave open to air. Depression Patient was evaluated by psychiatrist. 11/12: Prozac increased to 20 mg daily. Diabetes Glucose well controlled. Discontinued Accu-Cheks and sliding scale insulin Possible conjunctivitis: Resolved. -S/p Polytrim drops. DVT Prophylaxis: Lovenox, TEDs/SCDs. Discharge Planning 11/08: CM requested [facility] to evaluate for placement. Problem Qualifiers (1) GI bleed: Qualified Code: K92.2 - Gastrointestinal hemorrhage, unspecified gastrointestinal hemorrhage type (2) UTI (urinary tract infection): Qualified Code: N30.00 - Acute cystitis without hematuria (3) Effusion of hip joint: Qualified Code: M25.459 - Effusion of hip joint, unspecified laterality Mari Talamantes Nov 24, 2016 11:14
[2016-11-24 20:00] VITALS: BP 107/97; PULSE 91; RESP 20; TEMP 97.4; O2SAT 96
[2016-11-24 21:30] VITALS: BP 120/91
[2016-11-25] MEDS: azaTHIOprine 50 MG TAB PEG SCH ×2 (05:38→17:45)
[2016-11-25 08:00] VITALS: BP 111/80; PULSE 84; RESP 16; TEMP 97; O2SAT 98
[2016-11-25] MEDS: LACTOBACILLUS ACIDOPHILUS TAB PEG SCH ×2 (09:00→21:49)
[2016-11-25] MEDS: predniSONE 20 MG TAB PEG SCH (10:03)
[2016-11-25] MEDS: LANSOPRAZOLE SOLUTAB 30 MG TAB PEG SCH ×2 (10:05→21:49)
[2016-11-25] MEDS: METOPROLOL TARTRATE 25 MG TAB PEG SCH ×2 (10:06→21:49)
[2016-11-25] MEDS: FLUoxetine HCL LIQUID 20 MG/5 ML CUP PEG SCH (10:07)
[2016-11-25] MEDS: SENNOSIDES SYRUP 8.8 MG/5 ML CUP PEG SCH (10:07)
[2016-11-25] MEDS: ENOXAPARIN SODIUM 40 MG/0.4 ML SYRINGE SQ SCH (10:07)
[2016-11-25] MEDS: JUVEN POWDER 1 PACK G-TUBE SCH ×2 (10:09→21:00)
[2016-11-25] MEDS: LACTIC ACID (AMMONIUM LACTATE) 12% LOTION 225 GM BTL TOPICAL SCH ×2 (10:11→21:49)
[2016-11-25] MEDS: COLLAGENASE OINT 30 GM TUBE TOP SCH (10:11)
[2016-11-25] MEDS: PADIMATE (CHAPSTICK) 4.5 GM TUBE TOPICAL PRN (10:19)
[2016-11-25] MEDS: HYOSCYAMINE SOLN 0.125 MG/ML 15 ML BTL PEG PRN (10:20)
--- NOTE | 2016-11-25 11:06 | HHI.PR ---
Subjective Remarks Follow-up for neuro Behet's syndrome. When I asked the patient if he is ok he nods his head no but denies being in any pain. Denies any shortness of breath. Makes grunting sounds likely in attempt to speak. Objective Vitals Vital Signs Date Time Temp Pulse Resp B/P Pulse Ox O2 Delivery O2 Flow Rate FiO2 11/25/16 08:00 97.0 84 16 111/80 98 Automatic Cuff 11/24/16 21:30 120/91 11/24/16 20:00 97.4 91 20 107/97 96 I/O 11/24/16 11/24/16 11/24/16 11/25/16 11/25/16 11/25/16 07:00 15:00 23:00 07:00 15:00 23:00 Intake Total 960 ml Balance 960 ml Tube Feeding 840 ml Tube Irrigant 120 ml # Voids 3 4 2 # Bowel Movements 2 2 0 Objective Remarks Exam limited by clinical condition. GENERAL: Thin patient in no apparent distress. ENT: Drooling. CARDIOVASCULAR: Regular rate and rhythm. RESPIRATORY: CTAB. GASTROINTESTINAL: Abdomen soft, non-tender, nondistended. Feeding tube present. NEUROLOGICAL: Awake and alert. Nods head to answer questions. PSYCHIATRIC: Appears emotional; grunts in perceived attempt to speak. 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 Patient followed by neurology. Aphasic at baseline. Neurology following the patient Continue Imuran, prednisone EEG shows mild to moderate slowing at times of various depending on the epoch, there was no epileptic activity seen Continue PT/OT Palliative care following the patient and is still indicating the patient is making his own decisions, full code and full aggressive measures [place] as needed for pain. Sinus tachycardia: chronic Lopressor 25 mg twice daily. TSH, free T3, free T4 were normal Melena, bright red blood in stool: Resolved Status post transfusion, emergently transferred to [facility], emergent endoscopy GI evaluated and managed patient with emergent colonoscopy showing small ulcer in the colon Continue Prevacid Hemoglobin stable at 11.4 on 11/04. Sepsis, multiple episodes: Resolved at this time Patient does have rather significant coccyx decubitus wound: Wound culture with pseudo fluorescens/putida, group D enterococcus VRE which is sensitive to Zosyn. Patient did have one urine culture of Daphney parapsilosis, was treated with fluconazole for 10 days. --Patient had episode of diarrhea, C. difficile cultures performed which was negative. --Possible aseptic meningitis Infectious disease consulted and last seen the patient on 10/18/16, at that time it was indicated to observe off antibiotics. 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 Would benefit from long-term steroids. Prerenal azotemia: Improved Continue IV fluids Continue to monitor renal function Hypernatremia: Resolved Continue free water flushes 200 cc every 4 hours Continue IV fluids Monitor sodium level Decreased oral intake and dysphagia on initial presentation Speech therapy following intermittently. S/P barium swallow. Patient with severe dysphagia. GI consulted and PEG tube was placed. Dietary recommending Glucerna 1.5 at 70 mL/hour with Maury twice daily. Coccyx decubitus: Wound care nurse is following the patient for management. Recommends continuing to change dressings with Santyl ointment and cleanse with normal saline only. Do not apply briefs to patient. Specialty bed ordered. Ankle ulcer: R lateral malleolus, dry. -Nurse is advised patient needs to be wearing foam heel protectors. Wound care has evaluated, recommends painting area with skin prep or Betadine bid and leave open to air. Depression Patient was evaluated by psychiatrist. 11/12: Prozac increased to 20 mg daily. Diabetes Glucose well controlled. Discontinued Accu-Cheks and sliding scale insulin Possible conjunctivitis: Resolved. -S/p Polytrim drops. DVT Prophylaxis: Lovenox, TEDs/SCDs. Discharge Planning 11/08: CM requested [facility] to evaluate for placement. Problem Qualifiers (1) GI bleed: Qualified Code: K92.2 - Gastrointestinal hemorrhage, unspecified gastrointestinal hemorrhage type (2) UTI (urinary tract infection): Qualified Code: N30.00 - Acute cystitis without hematuria (3) Effusion of hip joint: Qualified Code: M25.459 - Effusion of hip joint, unspecified laterality Mari Talamantes Nov 25, 2016 11:06
[2016-11-25 20:00] VITALS: BP 114/83; PULSE 76; RESP 14; TEMP 97.7; O2SAT 100
[2016-11-25] MEDS: ACETAMINOPHEN/HYDROcodone 325 MG/5 MG TAB PEG PRN (21:48)
[2016-11-26] MEDS: azaTHIOprine 50 MG TAB PEG SCH ×2 (05:37→17:15)
[2016-11-26] MEDS: ACETAMINOPHEN/HYDROcodone 325 MG/5 MG TAB PEG PRN ×2 (05:37→21:23)
[2016-11-26 08:00] VITALS: BP 118/72; PULSE 80; RESP 18; TEMP 98.1; O2SAT 95
[2016-11-26] MEDS: JUVEN POWDER 1 PACK G-TUBE SCH ×2 (09:00→21:00)
[2016-11-26] MEDS: METOPROLOL TARTRATE 25 MG TAB PEG SCH ×2 (09:39→21:22)
[2016-11-26] MEDS: SENNOSIDES SYRUP 8.8 MG/5 ML CUP PEG SCH (09:39)
[2016-11-26] MEDS: predniSONE 20 MG TAB PEG SCH (09:39)
[2016-11-26] MEDS: LANSOPRAZOLE SOLUTAB 30 MG TAB PEG SCH ×2 (09:39→21:22)
[2016-11-26] MEDS: LACTOBACILLUS ACIDOPHILUS TAB PEG SCH ×2 (09:40→21:22)
[2016-11-26] MEDS: ENOXAPARIN SODIUM 40 MG/0.4 ML SYRINGE SQ SCH (09:40)
[2016-11-26] MEDS: COLLAGENASE OINT 30 GM TUBE TOP SCH (09:41)
[2016-11-26] MEDS: LACTIC ACID (AMMONIUM LACTATE) 12% LOTION 225 GM BTL TOPICAL SCH ×2 (09:42→21:00)
[2016-11-26] MEDS: FLUoxetine HCL LIQUID 20 MG/5 ML CUP PEG SCH (09:45)
--- NOTE | 2016-11-26 11:32 | HHI.PR ---
Subjective Remarks Follow-up for neuro Behet's syndrome. RN informs me the patient is depressed, crying. When I evaluated patient he agrees to being in an uncomfortable position but denies any pain. Objective Vitals Vital Signs Date Time Temp Pulse Resp B/P Pulse Ox O2 Delivery O2 Flow Rate FiO2 11/26/16 08:00 98.1 80 18 118/72 95 11/26/16 06:37 18 11/25/16 20:00 97.7 76 14 114/83 100 I/O 11/25/16 11/25/16 11/25/16 11/26/16 11/26/16 11/26/16 07:00 15:00 23:00 07:00 15:00 23:00 Intake Total 960 ml 0 ml 2228 ml 584 ml Output Total 0 ml Balance 960 ml 0 ml 2228 ml 584 ml Intake Oral 0 ml 0 ml Tube Feeding 840 ml 1328 ml 484 ml Tube Irrigant 120 ml Other 900 ml 100 ml Tube Feeding Residual Discard 0 ml # Voids 2 2 1 2 # Bowel Movements 0 0 0 0 Objective Remarks GENERAL: Thin patient in no apparent distress. EYES: No injection. CARDIOVASCULAR: Regular rate and rhythm. RESPIRATORY: CTAB. Abnormal breathing, chronic. GASTROINTESTINAL: Abdomen soft, non-tender, nondistended. Feeding tube present. NEUROLOGICAL: Awake and alert. Nods head to answer questions. PSYCHIATRIC: Affect is at baseline. No crying on exam. 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 Patient followed by neurology. Aphasic at baseline. Neurology following the patient Continue Imuran, prednisone EEG shows mild to moderate slowing at times of various depending on the epoch, there was no epileptic activity seen Continue PT/OT Palliative care following the patient and is still indicating the patient is making his own decisions, full code and full aggressive measures [place] as needed for pain. Sinus tachycardia: chronic Lopressor 25 mg twice daily. TSH, free T3, free T4 were normal Melena, bright red blood in stool: Resolved Status post transfusion, emergently transferred to [facility], emergent endoscopy GI evaluated and managed patient with emergent colonoscopy showing small ulcer in the colon Continue Prevacid Hemoglobin stable at 11.4 on 11/04. Sepsis, multiple episodes: Resolved at this time Patient does have rather significant coccyx decubitus wound: Wound culture with pseudo fluorescens/putida, group D enterococcus VRE which is sensitive to Zosyn. Patient did have one urine culture of Daphney parapsilosis, was treated with fluconazole for 10 days. --Patient had episode of diarrhea, C. difficile cultures performed which was negative. --Possible aseptic meningitis Infectious disease consulted and last seen the patient on 10/18/16, at that time it was indicated to observe off antibiotics. 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 Would benefit from long-term steroids. Prerenal azotemia: Improved Continue IV fluids Continue to monitor renal function Hypernatremia: Resolved Continue free water flushes 200 cc every 4 hours Continue IV fluids Monitor sodium level Decreased oral intake and dysphagia on initial presentation Speech therapy following intermittently. S/P barium swallow. Patient with severe dysphagia. GI consulted and PEG tube was placed. Dietary recommending Glucerna 1.5 at 70 mL/hour with Maury twice daily. Coccyx decubitus: Wound care nurse is following the patient for management. Recommends continuing to change dressings with Santyl ointment and cleanse with normal saline only. Do not apply briefs to patient. Specialty bed ordered. Ankle ulcer: R lateral malleolus, dry. -Nurse is advised patient needs to be wearing foam heel protectors. Wound care has evaluated, recommends painting area with skin prep or Betadine bid and leave open to air. Depression Patient was evaluated by psychiatrist. 11/12: Prozac increased to 20 mg daily. Diabetes Glucose well controlled. Discontinued Accu-Cheks and sliding scale insulin Possible conjunctivitis: Resolved. -S/p Polytrim drops. DVT Prophylaxis: Lovenox, TEDs/SCDs. Discharge Planning 11/08: CM requested [facility] to evaluate for placement. Problem Qualifiers (1) GI bleed: Qualified Code: K92.2 - Gastrointestinal hemorrhage, unspecified gastrointestinal hemorrhage type (2) UTI (urinary tract infection): Qualified Code: N30.00 - Acute cystitis without hematuria (3) Effusion of hip joint: Qualified Code: M25.459 - Effusion of hip joint, unspecified laterality Mari Talamantes Nov 26, 2016 11:32
[2016-11-26 20:00] VITALS: BP 104/81; PULSE 83; RESP 22; TEMP 97.4; O2SAT 100
[2016-11-27] MEDS: azaTHIOprine 50 MG TAB PEG SCH ×2 (05:17→17:07)
[2016-11-27 08:00] VITALS: BP 103/74; PULSE 84; RESP 20; TEMP 99.3; O2SAT 96
[2016-11-27] MEDS: JUVEN POWDER 1 PACK G-TUBE SCH ×2 (09:00→20:22)
[2016-11-27] MEDS: METOPROLOL TARTRATE 25 MG TAB PEG SCH ×2 (09:00→20:21)
[2016-11-27] MEDS: LACTIC ACID (AMMONIUM LACTATE) 12% LOTION 225 GM BTL TOPICAL SCH ×2 (09:26→20:21)
[2016-11-27] MEDS: HYOSCYAMINE SOLN 0.125 MG/ML 15 ML BTL PEG PRN (09:26)
[2016-11-27] MEDS: ENOXAPARIN SODIUM 40 MG/0.4 ML SYRINGE SQ SCH (09:26)
[2016-11-27] MEDS: FLUoxetine HCL LIQUID 20 MG/5 ML CUP PEG SCH (09:26)
[2016-11-27] MEDS: LANSOPRAZOLE SOLUTAB 30 MG TAB PEG SCH ×2 (09:26→20:21)
[2016-11-27] MEDS: predniSONE 20 MG TAB PEG SCH (09:26)
[2016-11-27] MEDS: SENNOSIDES SYRUP 8.8 MG/5 ML CUP PEG SCH (09:26)
[2016-11-27] MEDS: COLLAGENASE OINT 30 GM TUBE TOP SCH (09:27)
[2016-11-27] MEDS: LACTOBACILLUS ACIDOPHILUS TAB PEG SCH ×2 (09:32→20:21)
--- NOTE | 2016-11-27 10:25 | HHI.PR ---
Subjective Remarks Follow up for neuro Behet's syndrome. The patient denies any pain. Denies any shortness of breath. Objective Vitals Vital Signs Date Time Temp Pulse Resp B/P Pulse Ox O2 Delivery O2 Flow Rate FiO2 11/26/16 20:00 97.4 83 22 104/81 100 I/O 11/26/16 11/26/16 11/26/16 11/27/16 11/27/16 11/27/16 07:00 15:00 23:00 07:00 15:00 23:00 Intake Total 654 ml 770 ml 240 ml 528 ml Output Total 1 ml Balance 654 ml 770 ml 239 ml 528 ml Tube Feeding 554 ml 570 ml 140 ml 528 ml Tube Irrigant 200 ml 100 ml Other 100 ml Stool Total 1 ml # Voids 2 5 2 # Bowel Movements 0 2 Objective Remarks GENERAL: Thin patient in no apparent distress. CARDIOVASCULAR: Regular rate and rhythm. RESPIRATORY: Mildly coarse breath sounds with transmitted upper respiratory sounds. GASTROINTESTINAL: Abdomen soft, non-tender, nondistended. Feeding tube present. NEUROLOGICAL: Awake and alert. Nods head to answer questions. PSYCHIATRIC: Affect is at baseline. 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 Patient followed by neurology. Aphasic at baseline. Neurology following the patient Continue Imuran, prednisone EEG shows mild to moderate slowing at times of various depending on the epoch, there was no epileptic activity seen Continue PT/OT Palliative care following the patient and is still indicating the patient is making his own decisions, full code and full aggressive measures [place] as needed for pain. Sinus tachycardia: chronic Lopressor 25 mg twice daily. TSH, free T3, free T4 were normal Melena, bright red blood in stool: Resolved Status post transfusion, emergently transferred to main hospital, emergent endoscopy GI evaluated and managed patient with emergent colonoscopy showing small ulcer in the colon Continue Prevacid Hemoglobin stable at 11.4 on 11/04. Sepsis, multiple episodes: Resolved at this time Patient does have rather significant coccyx decubitus wound: Wound culture with pseudo fluorescens/putida, group D enterococcus VRE which is sensitive to Zosyn. Patient did have one urine culture of Daphney parapsilosis, was treated with fluconazole for 10 days. --Patient had episode of diarrhea, C. difficile cultures performed which was negative. --Possible aseptic meningitis Infectious disease consulted and last seen the patient on 10/18/16, at that time it was indicated to observe off antibiotics. 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 Would benefit from long-term steroids. Prerenal azotemia: Improved Continue IV fluids Continue to monitor renal function Hypernatremia: Resolved Continue free water flushes 200 cc every 4 hours Continue IV fluids Monitor sodium level Decreased oral intake and dysphagia on initial presentation Speech therapy following intermittently. S/P barium swallow. Patient with severe dysphagia. GI consulted and PEG tube was placed. Dietary recommending Glucerna 1.5 at 70 mL/hour with Maury twice daily. Coccyx decubitus: Wound care nurse is following the patient for management. Recommends continuing to change dressings with Santyl ointment and cleanse with normal saline only. Do not apply briefs to patient. Specialty bed ordered. Ankle ulcer: R lateral malleolus, dry. -Nurse is advised patient needs to be wearing foam heel protectors. Wound care has evaluated, recommends painting area with skin prep or Betadine bid and leave open to air. Depression Patient was evaluated by psychiatrist. 11/12: Prozac increased to 20 mg daily. Diabetes Glucose well controlled. Discontinued Accu-Cheks and sliding scale insulin DVT Prophylaxis: Lovenox, TEDs/SCDs. Discharge Planning 11/08: CM requested [facility] to evaluate for placement. Problem Qualifiers (1) GI bleed: Qualified Code: K92.2 - Gastrointestinal hemorrhage, unspecified gastrointestinal hemorrhage type (2) UTI (urinary tract infection): Qualified Code: N30.00 - Acute cystitis without hematuria (3) Effusion of hip joint: Qualified Code: M25.459 - Effusion of hip joint, unspecified laterality Mari Talamantes Nov 27, 2016 10:25
[2016-11-27 20:00] VITALS: BP 121/92; PULSE 89; RESP 21; TEMP 97.7; O2SAT 100
[2016-11-28] MEDS: azaTHIOprine 50 MG TAB PEG SCH ×2 (06:42→18:00)
[2016-11-28] MEDS: ENOXAPARIN SODIUM 40 MG/0.4 ML SYRINGE SQ SCH (08:46)
[2016-11-28] MEDS: SENNOSIDES SYRUP 8.8 MG/5 ML CUP PEG SCH (08:46)
[2016-11-28] MEDS: METOPROLOL TARTRATE 25 MG TAB PEG SCH ×2 (08:46→21:47)
[2016-11-28] MEDS: LACTOBACILLUS ACIDOPHILUS TAB PEG SCH ×2 (08:46→21:47)
[2016-11-28] MEDS: FLUoxetine HCL LIQUID 20 MG/5 ML CUP PEG SCH (08:47)
[2016-11-28] MEDS: predniSONE 20 MG TAB PEG SCH (08:47)
[2016-11-28] MEDS: LANSOPRAZOLE SOLUTAB 30 MG TAB PEG SCH ×2 (08:47→21:47)
[2016-11-28 08:54] VITALS: BP 131/92; PULSE 89; RESP 19; TEMP 98.3; O2SAT 98
[2016-11-28] MEDS: LACTIC ACID (AMMONIUM LACTATE) 12% LOTION 225 GM BTL TOPICAL SCH ×2 (08:54→21:58)
[2016-11-28] MEDS: COLLAGENASE OINT 30 GM TUBE TOP SCH (08:54)
[2016-11-28] MEDS: JUVEN POWDER 1 PACK G-TUBE SCH ×2 (09:00→21:51)
--- NOTE | 2016-11-28 10:50 | HHI.PR ---
Subjective Remarks Follow-up for neuro Behet's syndrome. When I asked the patient is he is okay he nods 'no', but denies any pain, being uncomfortable, or shortness of breath. Objective Vitals Vital Signs Date Time Temp Pulse Resp B/P Pulse Ox O2 Delivery O2 Flow Rate FiO2 11/28/16 08:54 98.3 89 19 131/92 98 11/27/16 20:00 97.7 89 21 121/92 100 I/O 11/27/16 11/27/16 11/27/16 11/28/16 11/28/16 11/28/16 07:00 15:00 23:00 07:00 15:00 23:00 Intake Total 528 ml 1788 ml 722 ml Output Total 0 ml 1 ml Balance 528 ml 0 ml 1787 ml 722 ml Tube Feeding 528 ml 1388 ml 522 ml Tube Irrigant 200 ml 200 ml Other 200 ml Stool Total 1 ml Tube Feeding Residual Discard 0 ml # Voids 2 5 3 # Bowel Movements 2 3 Objective Remarks GENERAL: Thin patient in no apparent distress. CARDIOVASCULAR: Regular rate and rhythm. RESPIRATORY: Transmitted upper respiratory sounds. GASTROINTESTINAL: Abdomen soft, non-tender, nondistended. NEUROLOGICAL: Awake and alert. Nods head to answer questions. PSYCHIATRIC: Affect is at baseline. 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 Patient followed by neurology. Aphasic at baseline. Neurology following the patient Continue Imuran, prednisone EEG shows mild to moderate slowing at times of various depending on the epoch, there was no epileptic activity seen Continue PT/OT Palliative care following the patient and is still indicating the patient is making his own decisions, full code and full aggressive measures [place] as needed for pain. Sinus tachycardia: Improved. Lopressor 25 mg twice daily. TSH, free T3, free T4 were normal Melena, bright red blood in stool: Resolved Status post transfusion, emerg[facility], emergent endoscopy GI evaluated and managed patient with emergent colonoscopy showing small ulcer in the colon Continue Prevacid Hemoglobin stable at 11.4 on 11/04. Sepsis, multiple episodes: Resolved at this time Patient does have rather significant coccyx decubitus wound: Wound culture with pseudo fluorescens/putida, group D enterococcus VRE which is sensitive to Zosyn. Patient did have one urine culture of Daphney parapsilosis, was treated with fluconazole for 10 days. --Patient had episode of diarrhea, C. difficile cultures performed which was negative. --Possible aseptic meningitis Infectious disease consulted and last seen the patient on 10/18/16, at that time it was indicated to observe off antibiotics. 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 Would benefit from long-term steroids. Prerenal azotemia: Improved Continue IV fluids Continue to monitor renal function Hypernatremia: Resolved Continue free water flushes 200 cc every 4 hours Continue IV fluids Monitor sodium level Decreased oral intake and dysphagia on initial presentation Speech therapy following intermittently. S/P barium swallow. Patient with severe dysphagia. GI consulted and PEG tube was placed. Dietary recommending Glucerna 1.5 at 70 mL/hour with Maury twice daily. Coccyx decubitus: Wound care nurse is following the patient for management. Recommends continuing to change dressings with Santyl ointment and cleanse with normal saline only. Do not apply briefs to patient. Specialty bed ordered. Ankle ulcer: R lateral malleolus, dry. -Nurse is advised patient needs to be wearing foam heel protectors. Wound care has evaluated, recommends painting area with skin prep or Betadine bid and leave open to air. Depression Patient was evaluated by psychiatrist. 11/12: Prozac increased to 20 mg daily. Diabetes Glucose well controlled. Discontinued Accu-Cheks and sliding scale insulin DVT Prophylaxis: Lovenox, TEDs/SCDs. Discharge Planning 11/08: CM requested [facility] to evaluate for placement. Problem Qualifiers (1) GI bleed: Qualified Code: K92.2 - Gastrointestinal hemorrhage, unspecified gastrointestinal hemorrhage type (2) UTI (urinary tract infection): Qualified Code: N30.00 - Acute cystitis without hematuria (3) Effusion of hip joint: Qualified Code: M25.459 - Effusion of hip joint, unspecified laterality Mari Talamantes Nov 28, 2016 10:50
[2016-11-28 20:00] VITALS: BP 113/95; PULSE 72; RESP 20; TEMP 96.1; O2SAT 100
[2016-11-29] MEDS: azaTHIOprine 50 MG TAB PEG SCH ×2 (06:04→15:45)
[2016-11-29 08:00] VITALS: BP 112/72; PULSE 80; RESP 17; TEMP 97.6; O2SAT 96
[2016-11-29] MEDS: JUVEN POWDER 1 PACK G-TUBE SCH ×2 (09:00→21:00)
[2016-11-29] MEDS: SENNOSIDES SYRUP 8.8 MG/5 ML CUP PEG SCH (09:30)
[2016-11-29] MEDS: FLUoxetine HCL LIQUID 20 MG/5 ML CUP PEG SCH (09:30)
[2016-11-29] MEDS: ENOXAPARIN SODIUM 40 MG/0.4 ML SYRINGE SQ SCH (09:30)
[2016-11-29] MEDS: METOPROLOL TARTRATE 25 MG TAB PEG SCH ×2 (09:31→21:08)
[2016-11-29] MEDS: LANSOPRAZOLE SOLUTAB 30 MG TAB PEG SCH ×2 (09:31→21:08)
[2016-11-29] MEDS: LACTOBACILLUS ACIDOPHILUS TAB PEG SCH ×2 (09:31→21:08)
[2016-11-29] MEDS: predniSONE 20 MG TAB PEG SCH (09:31)
[2016-11-29] MEDS: COLLAGENASE OINT 30 GM TUBE TOP SCH (09:32)
[2016-11-29] MEDS: LACTIC ACID (AMMONIUM LACTATE) 12% LOTION 225 GM BTL TOPICAL SCH ×2 (09:33→21:09)
--- NOTE | 2016-11-29 10:45 | HHI.PR ---
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 Patient does not indicate any new complaints. Patient lying comfortable in bed. No change in clinical status. Objective Vitals Vital Signs Date Time Temp Pulse Resp B/P Pulse Ox O2 Delivery O2 Flow Rate FiO2 11/29/16 08:00 97.6 80 17 112/72 96 11/28/16 20:00 96.1 72 20 113/95 100 I/O 11/28/16 11/28/16 11/28/16 11/29/16 11/29/16 11/29/16 07:00 15:00 23:00 07:00 15:00 23:00 Intake Total 722 ml 748 ml 760 ml Balance 722 ml 748 ml 760 ml Tube Feeding 522 ml 548 ml 560 ml Tube Irrigant 200 ml 200 ml 200 ml # Voids 3 1 1 # Bowel Movements 3 0 0 Objective Remarks GENERAL: Well-developed, cachectic. Patient sleeping upon entering the room HEENT: Head is normocephalic without any lesions or masses noted. Facial features are symmetric. Eyes: Extraocular muscles are intact. Conjunctivae were clear. NECK: Supple without any masses. Trachea midline no deviation. No JVD, CARDIAC: Regular rhythm, tachycardia noted. S1/S2 are heard. No murmurs gallops or rubs. LUNGS: Clear to auscultation bilaterally. No wheeze, rhonchi or rales. No use of accessory muscles on inspiration or expiration. ABDOMEN: Soft, nontender. Nondistended. Bowel sounds heard in all 4 quadrants. No organomegaly or masses. Negative rebound, negative guarding. PEG tube noted without any excoriation. EXTREMITIES: No edema, pulses are equal bilaterally. No cyanosis or clubbing Procedures 07/19/16 EGD with PEG tube placement 09/27/16 colonoscopy Urinary Catheter: No Vascular Central Line Catheter: No A/P Assessment and Plan Neuro-Behcet, history of frontal lobe CVA, encephalopathy, history of meningitis , chronic No new changes on imaging. Patient was followed by neurology. Aphasic at baseline. Continue Imuran, prednisone EEG shows mild to moderate slowing at times of various depending on the epoch, there was no epileptic activity seen Continue PT/OT Palliative care following the patient and is still indicating the patient is making his own decisions, full code and full aggressive measures Sinus tachycardia. Chronic Lopressor 25 mg twice daily. TSH, free T3, free T4 colon were normal Melena, bright red blood in stool, resolved Status post transfusion, emergency transferred to Main hospital, emergent endoscopy GI evaluated and managed patient with emergent colonoscopy showing small ulcer in the colon Continue Prevacid Sepsis, multiple episodes, resolved at this time Patient does have rather significant coccyx decubitus wound: Wound culture with pseudo fluorescens/putida, group D enterococcus VRE which is sensitive to Zosyn. Patient did have one urine culture of Daphney parapsilosis, was treated with fluconazole for 10 days. --Patient had episode of diarrhea, C. difficile cultures performed which was negative. --Possible aseptic meningitis Infectious disease consulted and last seen the patient on 10/18/16, at that time it was indicated to observe off antibiotics. 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 Would benefit from long-term steroids Prerenal azotemia, resolved Continue IV fluids Continue monitor renal function Hypernatremia, resolved Continue free water flushes 200 cc every 4 hours Continue IV fluids Monitor sodium level Decreased oral intake and dysphagia on initial presentation Speech therapy following intermittently. S/P barium swallow. Patient with severe dysphagia. GI consulted and PEG tube was placed. Dietary recommending Glucerna 1.5 at 70 mL's an hour with Maury twice daily, Coccyx decubitus. Wound care nurse is following the patient for management Wound care nurse recommending wound care Patient with specialty bed Mood disorder, depression Patient was evaluated by psychiatrist. Psychiatrist recommended Prozac Diabetes Glucose well controlled, DVT Prophylaxis: Lovenox, TEDs/SCDs. Discharge Planning Case management for discharge planning Ede Richardson Nov 29, 2016 10:45
[2016-11-29 20:00] VITALS: BP 116/89; PULSE 74; RESP 13; TEMP 96.4; O2SAT 100
[2016-11-30] MEDS: azaTHIOprine 50 MG TAB PEG SCH ×2 (06:21→17:33)
[2016-11-30 08:41] VITALS: BP 112/84; PULSE 102; RESP 19; TEMP 97.3; O2SAT 95
[2016-11-30] MEDS: LACTIC ACID (AMMONIUM LACTATE) 12% LOTION 225 GM BTL TOPICAL SCH ×2 (09:00→20:32)
[2016-11-30] MEDS: JUVEN POWDER 1 PACK G-TUBE SCH ×2 (09:00→20:32)
[2016-11-30] MEDS: ENOXAPARIN SODIUM 40 MG/0.4 ML SYRINGE SQ SCH (09:51)
[2016-11-30] MEDS: LANSOPRAZOLE SOLUTAB 30 MG TAB PEG SCH ×2 (09:52→20:31)
[2016-11-30] MEDS: SENNOSIDES SYRUP 8.8 MG/5 ML CUP PEG SCH (09:52)
[2016-11-30] MEDS: METOPROLOL TARTRATE 25 MG TAB PEG SCH ×2 (09:52→20:31)
[2016-11-30] MEDS: LACTOBACILLUS ACIDOPHILUS TAB PEG SCH ×2 (09:52→20:31)
[2016-11-30] MEDS: predniSONE 20 MG TAB PEG SCH (09:52)
[2016-11-30] MEDS: FLUoxetine HCL LIQUID 20 MG/5 ML CUP PEG SCH (09:52)
[2016-11-30] MEDS: COLLAGENASE OINT 30 GM TUBE TOP SCH (09:54)
--- NOTE | 2016-11-30 11:28 | HHI.PR ---
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 Patient not indicating any new problems today. Nursing staff indicates that patient have been some increased residuals with the increase of the rate of tube feeding. Objective Vitals Vital Signs Date Time Temp Pulse Resp B/P Pulse Ox O2 Delivery O2 Flow Rate FiO2 11/30/16 08:41 97.3 102 19 112/84 95 11/29/16 20:00 96.4 74 13 116/89 100 I/O 11/29/16 11/29/16 11/29/16 11/30/16 11/30/16 11/30/16 07:00 15:00 23:00 07:00 15:00 23:00 Intake Total 760 ml 640 ml Balance 760 ml 640 ml Tube Feeding 560 ml 540 ml Tube Irrigant 200 ml Other 100 ml # Voids 1 6 2 # Bowel Movements 0 0 0 Objective Remarks GENERAL: Well-developed, cachectic. Patient sleeping upon entering the room HEENT: Head is normocephalic without any lesions or masses noted. Facial features are symmetric. Eyes: Extraocular muscles are intact. Conjunctivae were clear. NECK: Supple without any masses. Trachea midline no deviation. No JVD, CARDIAC: Regular rhythm, tachycardia noted. S1/S2 are heard. No murmurs gallops or rubs. LUNGS: Clear to auscultation bilaterally. No wheeze, rhonchi or rales. No use of accessory muscles on inspiration or expiration. ABDOMEN: Soft, nontender. Nondistended. Bowel sounds heard in all 4 quadrants. No organomegaly or masses. Negative rebound, negative guarding. PEG tube noted without any excoriation. EXTREMITIES: No edema, pulses are equal bilaterally. No cyanosis or clubbing Procedures 07/19/16 EGD with PEG tube placement 09/27/16 colonoscopy Urinary Catheter: No Vascular Central Line Catheter: No A/P Assessment and Plan Neuro-Behcet, history of frontal lobe CVA, encephalopathy, history of meningitis , chronic No new changes on imaging. Patient was followed by neurology. Aphasic at baseline. Continue Imuran, prednisone EEG shows mild to moderate slowing at times of various depending on the epoch, there was no epileptic activity seen Continue PT/OT Palliative care following the patient and is still indicating the patient is making his own decisions, full code and full aggressive measures Sinus tachycardia. Chronic Lopressor 25 mg twice daily. TSH, free T3, free T4 colon were normal Melena, bright red blood in stool, resolved Status post transfusion, emergency transferred to [facility] hospital, emergent endoscopy GI evaluated and managed patient with emergent colonoscopy showing small ulcer in the colon Continue Prevacid Sepsis, multiple episodes, resolved at this time Patient does have rather significant coccyx decubitus wound: Wound culture with pseudo fluorescens/putida, group D enterococcus VRE which is sensitive to Zosyn. Patient did have one urine culture of Daphney parapsilosis, was treated with fluconazole for 10 days. --Patient had episode of diarrhea, C. difficile cultures performed which was negative. --Possible aseptic meningitis Infectious disease consulted and last seen the patient on 10/18/16, at that time it was indicated to observe off antibiotics. 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 Would benefit from long-term steroids Prerenal azotemia, resolved Continue IV fluids Continue monitor renal function Hypernatremia, resolved Continue free water flushes 200 cc every 4 hours Continue IV fluids Monitor sodium level Decreased oral intake and dysphagia on initial presentation Speech therapy following intermittently. S/P barium swallow. Patient with severe dysphagia. GI consulted and PEG tube was placed. Dietary recommending Glucerna 1.5 at 70 mL's an hour with Maury twice daily, Coccyx decubitus. Wound care nurse is following the patient for management Wound care nurse recommending wound care Patient with specialty bed Mood disorder, depression Patient was evaluated by psychiatrist. Psychiatrist recommended Prozac Diabetes Glucose well controlled, DVT Prophylaxis: Lovenox, TEDs/SCDs. Discharge Planning Case management for discharge planning Ede Richardson Nov 30, 2016 11:28
--- NOTE | 2016-11-30 14:24 | PD.WCN.NOT ---
Wound Consult Description: Patient seen on 5th floor [facility] for follow up of wound to sacral/coccyx area.Patient positioned to L side for wound assessment after bathing with the assistance of Becca GARBER, Evangelina ANGLIN and conventional underwriter. Sacrococcygeal wound bed noted with ~10% yellow slough and ~90% beefy red granulation tissue.Wound noted with minimal sero-sanguanous drainage. Wound appears improved from previous assessment. Wound measurements are as follows: 3.3 x 2 x 0.6. Undermining noted from 8 to 12 o'clock 1.3 cm at the deepest. New epithelial tissue noted at wound margins.Periwound assessed with scar tissue but is otherwise unremarkable. Cleansed wound with normal saline and applied santyl ointment luis thick coverage to wound bed. Loosely packed wound with slightly moistened maxorb II ( calcium alginate) dressing. Skin prep applied to periwound. Covered wound with small bordered gauze dressing Removed R heel boot to reveal open wound over R lateral malleolus. Wound presents with 80% yellow adherent slough and 20% pink tissue.Presence of slough in wound over rob prominence indicates an unstageable pressure injury.Wound has minimal sero-sanguanous drainage. Wound previously assessed as a dry intact scab. Wound measurements are as follows 1 x 2 x slough.Cleansed wound with normal saline and applied dry cover dressing Wound care will continue to follow patient weekly. Communicated with: Becca GARBER 5th floor [facility], and Josafat Nugent Recommendation: Recommend to continue dressing changes with santyl and maxorb II to sacral/ coccyx area, cleansing wound with normal saline only. Please cleanse wound to R lateral malleolus unstagable pressure injury with normal saline only and apply luis thick coverage of santyl ointment and cover with dry cover dressing. Please change dressing daily.Please do not use wound cleanser with santyl ointment. Arleen Gibbs [facility] Nov 30, 2016 14:23
[2016-11-30 20:00] VITALS: BP 113/90; PULSE 79; RESP 19; TEMP 98.1; O2SAT 98
[2016-12-01 05:12] LABS: AUTOMATED NEUTROPHIL # 9.1 TH/MM3 (1.8-7.7); BASOPHIL # 0.3 TH/MM3 (0-0.2); BASOPHIL % 2.1 % (0.0-2.0); EOSINOPHIL # 0.1 TH/MM3 (0-0.4); EOSINOPHIL % 0.6 % (0.0-4.0); HEMATOCRIT 38.7 % (39.0-51.0); HEMOGLOBIN 12.7 GM/DL (13.0-17.0); LYMPH % 16.7 % (9.0-44.0); LYMPHOCYTE # 2.1 TH/MM3 (1.0-4.8); MEAN CELL VOLUME 91.6 FL (80.0-100.0); MEAN CORPUSCULAR HGB CONC 32.8 % (32.0-36.0); MONO % 5.4 % (0.0-8.0); MONOCYTE # 0.7 TH/MM3 (0-0.9); NEUT % 75.2 % (16.0-70.0); PLATELET COUNT 317 TH/MM3 (150-450); RED BLOOD COUNT 4.22 MIL/MM3 (4.50-5.90); RED CELL DISTRIBUTION WIDTH 17.3 % (11.6-17.2); WHITE BLOOD COUNT 12.3 TH/MM3 (4.0-11.0)
[2016-12-01 05:24] LABS: CHLORIDE 110 MEQ/L (98-107); SODIUM (NA) 146 MEQ/L (136-145)
[2016-12-01 05:27] LABS: ALBUMIN 3.2 GM/DL (3.4-5.0); BICARBONATE 29.5 MEQ/L (21.0-32.0); CALCIUM 9.1 MG/DL (8.5-10.1); GLUCOSE,RANDOM 106 MG/DL (74-106)
[2016-12-01 05:28] LABS: BLOOD UREA NITROGEN 23 MG/DL (7-18)
[2016-12-01 05:30] LABS: ALT (GPT) 61 U/L (12-78); AST (GOT) 11 U/L (15-37); GLOMERULAR FILTRATION RATE 127 ML/MIN (>89)
[2016-12-01 05:32] LABS: TOTAL BILIRUBIN ADULT 0.2 MG/DL (0.2-1.0); TOTAL PROTEIN 6.8 GM/DL (6.4-8.2)
[2016-12-01 05:33] LABS: ALKALINE PHOSPHATASE 84 U/L (45-117)
[2016-12-01] MEDS: azaTHIOprine 50 MG TAB PEG SCH ×2 (05:49→18:03)
[2016-12-01 08:00] VITALS: BP 118/88; PULSE 95; RESP 20; TEMP 98.3; O2SAT 96
[2016-12-01] MEDS: ENOXAPARIN SODIUM 40 MG/0.4 ML SYRINGE SQ SCH (08:23)
[2016-12-01] MEDS: predniSONE 20 MG TAB PEG SCH (08:23)
[2016-12-01] MEDS: METOPROLOL TARTRATE 25 MG TAB PEG SCH ×2 (08:23→20:51)
[2016-12-01] MEDS: FLUoxetine HCL LIQUID 20 MG/5 ML CUP PEG SCH (08:23)
[2016-12-01] MEDS: LANSOPRAZOLE SOLUTAB 30 MG TAB PEG SCH ×2 (08:23→20:51)
[2016-12-01] MEDS: LACTOBACILLUS ACIDOPHILUS TAB PEG SCH ×2 (08:23→20:51)
[2016-12-01] MEDS: SENNOSIDES SYRUP 8.8 MG/5 ML CUP PEG SCH (08:23)
[2016-12-01] MEDS: HYOSCYAMINE SOLN 0.125 MG/ML 15 ML BTL PEG PRN (08:24)
[2016-12-01] MEDS: LACTIC ACID (AMMONIUM LACTATE) 12% LOTION 225 GM BTL TOPICAL SCH ×2 (08:24→20:52)
[2016-12-01] MEDS: COLLAGENASE OINT 30 GM TUBE TOP SCH (08:25)
[2016-12-01] MEDS: JUVEN POWDER 1 PACK G-TUBE SCH ×2 (08:26→20:54)
--- NOTE | 2016-12-01 10:03 | HHI.PR ---
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 Is no change in clinical status. Patient does not indicate any acute problems. Objective Vitals Vital Signs Date Time Temp Pulse Resp B/P Pulse Ox O2 Delivery O2 Flow Rate FiO2 12/01/16 08:00 98.3 95 20 118/88 96 11/30/16 20:00 98.1 79 19 113/90 98 I/O 11/30/16 11/30/16 11/30/16 12/01/16 12/01/16 12/01/16 07:00 15:00 23:00 07:00 15:00 23:00 Intake Total 450 ml 840 ml Balance 450 ml 840 ml Tube Feeding 450 ml 840 ml # Voids 2 1 2 # Bowel Movements 0 Result Diagram: 12/01/16 0507 12/01/16 0507 Objective Remarks GENERAL: Well-developed, cachectic and contracted. HEENT: Head is normocephalic without any lesions or masses noted. Facial features are symmetric. Eyes: Extraocular muscles are intact. Conjunctivae were clear. NECK: Supple without any masses. Trachea midline no deviation. No JVD, CARDIAC: Regular rhythm, tachycardia noted. S1/S2 are heard. No murmurs gallops or rubs. LUNGS: Clear to auscultation bilaterally. No wheeze, rhonchi or rales. No use of accessory muscles on inspiration or expiration. ABDOMEN: Soft, nontender. Nondistended. Bowel sounds heard in all 4 quadrants. No organomegaly or masses. Negative rebound, negative guarding. PEG tube noted without any excoriation. EXTREMITIES: No edema, pulses are equal bilaterally. No cyanosis or clubbing Procedures 07/19/16 EGD with PEG tube placement 09/27/16 colonoscopy Urinary Catheter: No Vascular Central Line Catheter: No A/P Assessment and Plan Neuro-Behcet, history of frontal lobe CVA, encephalopathy, history of meningitis , chronic No new changes on imaging. Patient was followed by neurology. Aphasic at baseline. Continue Imuran, prednisone EEG shows mild to moderate slowing at times of various depending on the epoch, there was no epileptic activity seen Continue PT/OT Palliative care following the patient and is still indicating the patient is making his own decisions, full code and full aggressive measures Sinus tachycardia. Stable Lopressor 25 mg twice daily. TSH, free T3, free T4 colon were normal Melena, bright red blood in stool, resolved Status post transfusion, emergency transferred to [facility] hospital, emergent endoscopy GI evaluated and managed patient with emergent colonoscopy showing small ulcer in the colon Continue Prevacid Sepsis, multiple episodes, resolved at this time Patient does have rather significant coccyx decubitus wound: Wound culture with pseudo fluorescens/putida, group D enterococcus VRE which is sensitive to Zosyn. Patient did have one urine culture of Daphney parapsilosis, was treated with fluconazole for 10 days. --Patient had episode of diarrhea, C. difficile cultures performed which was negative. --Possible aseptic meningitis Infectious disease consulted and last seen the patient on 10/18/16, at that time it was indicated to observe off antibiotics. 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 Would benefit from long-term steroids Prerenal azotemia, resolved Continue monitor renal function periodically Hypernatremia, resolved Continue free water flushes 200 cc every 4 hours Continue IV fluids Monitor sodium level Decreased oral intake and dysphagia on initial presentation Speech therapy following intermittently. S/P barium swallow. Patient with severe dysphagia. GI consulted and PEG tube was placed. Dietary recommending Glucerna 1.5 at 70 mL's an hour with Maury twice daily, Coccyx decubitus. Wound care nurse is following the patient for management Wound care nurse recommending wound care Patient with specialty bed Mood disorder, depression Patient was evaluated by psychiatrist. Psychiatrist recommended Prozac Diabetes Glucose well controlled, DVT Prophylaxis: Lovenox, TEDs/SCDs. Discharge Planning Case management for discharge planning Ede Richardson Dec 01, 2016 10:03
[2016-12-01 20:00] VITALS: BP 101/69; PULSE 74; RESP 18; TEMP 98.9; O2SAT 100
[2016-12-02] MEDS: azaTHIOprine 50 MG TAB PEG SCH ×2 (05:25→18:44)
[2016-12-02 08:00] VITALS: BP 115/70; PULSE 76; RESP 20; TEMP 98; O2SAT 94
[2016-12-02] MEDS: JUVEN POWDER 1 PACK G-TUBE SCH ×2 (09:00→21:00)
[2016-12-02] MEDS: LACTIC ACID (AMMONIUM LACTATE) 12% LOTION 225 GM BTL TOPICAL SCH ×2 (09:00→21:00)
--- NOTE | 2016-12-02 09:08 | HHI.PR ---
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 Patient does not indicate any new complaints or problems. Patient resting comfortably. No change in current treatment plan Objective Vitals Vital Signs Date Time Temp Pulse Resp B/P Pulse Ox O2 Delivery O2 Flow Rate FiO2 12/01/16 20:00 98.9 74 18 101/69 100 I/O 12/01/16 12/01/16 12/01/16 12/02/16 12/02/16 12/02/16 07:00 15:00 23:00 07:00 15:00 23:00 Intake Total 840 ml Balance 840 ml Tube Feeding 840 ml # Voids 4 3 1 # Bowel Movements 0 0 Result Diagram: 12/01/16 0507 12/01/16 0507 Objective Remarks GENERAL: Well-developed, cachectic and contracted. HEENT: Head is normocephalic without any lesions or masses noted. Facial features are symmetric. Eyes: Extraocular muscles are intact. Conjunctivae were clear. NECK: Supple without any masses. Trachea midline no deviation. No JVD, CARDIAC: Regular rhythm, tachycardia noted. S1/S2 are heard. No murmurs gallops or rubs. LUNGS: Clear to auscultation bilaterally. No wheeze, rhonchi or rales. No use of accessory muscles on inspiration or expiration. ABDOMEN: Soft, nontender. Nondistended. Bowel sounds heard in all 4 quadrants. No organomegaly or masses. Negative rebound, negative guarding. PEG tube noted without any excoriation. EXTREMITIES: No edema, pulses are equal bilaterally. No cyanosis or clubbing Procedures 07/19/16 EGD with PEG tube placement 09/27/16 colonoscopy Urinary Catheter: No Vascular Central Line Catheter: No A/P Assessment and Plan Neuro-Behcet, history of frontal lobe CVA, encephalopathy, history of meningitis , chronic No new changes on imaging. Patient was followed by neurology. Aphasic at baseline. Continue Imuran, prednisone EEG shows mild to moderate slowing at times of various depending on the epoch, there was no epileptic activity seen Continue PT/OT Palliative care following the patient and is still indicating the patient is making his own decisions, full code and full aggressive measures Sinus tachycardia. Stable Lopressor 25 mg twice daily. TSH, free T3, free T4 colon were normal Melena, bright red blood in stool, resolved Status post transfusion, emergency transferred to [facility] hospital, emergent endoscopy GI evaluated and managed patient with emergent colonoscopy showing small ulcer in the colon Continue Prevacid Sepsis, multiple episodes, resolved at this time Patient does have rather significant coccyx decubitus wound: Wound culture with pseudo fluorescens/putida, group D enterococcus VRE which is sensitive to Zosyn. Patient did have one urine culture of Daphney parapsilosis, was treated with fluconazole for 10 days. --Patient had episode of diarrhea, C. difficile cultures performed which was negative. --Possible aseptic meningitis Infectious disease consulted and last seen the patient on 10/18/16, at that time it was indicated to observe off antibiotics. 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 Would benefit from long-term steroids Prerenal azotemia, resolved Continue monitor renal function periodically Hypernatremia, Continue free water flushes 200 cc every 4 hours Monitor sodium level Decreased oral intake and dysphagia on initial presentation Speech therapy following intermittently. S/P barium swallow. Patient with severe dysphagia. GI was consulted and PEG tube was placed. Dietary recommending Glucerna 1.5 at 70 mL's an hour with Maury twice daily, Continue continuous tube feeding until patient appears to be more nutritionally stable and then will evaluate for bolus feeding Coccyx decubitus. Wound care nurse is following the patient for management Patient with specialty bed Mood disorder, depression Patient was evaluated by psychiatrist. Psychiatrist recommended Prozac Diabetes Glucose well controlled, DVT Prophylaxis: Lovenox, TEDs/SCDs. Discharge Planning Case management for discharge planning Ede Richardson Dec 02, 2016 09:08
[2016-12-02] MEDS: LANSOPRAZOLE SOLUTAB 30 MG TAB PEG SCH ×2 (09:09→23:31)
[2016-12-02] MEDS: SENNOSIDES SYRUP 8.8 MG/5 ML CUP PEG SCH (09:09)
[2016-12-02] MEDS: METOPROLOL TARTRATE 25 MG TAB PEG SCH ×2 (09:09→21:00)
[2016-12-02] MEDS: ENOXAPARIN SODIUM 40 MG/0.4 ML SYRINGE SQ SCH (09:09)
[2016-12-02] MEDS: FLUoxetine HCL LIQUID 20 MG/5 ML CUP PEG SCH (09:09)
[2016-12-02] MEDS: LACTOBACILLUS ACIDOPHILUS TAB PEG SCH ×2 (09:09→23:30)
[2016-12-02] MEDS: COLLAGENASE OINT 30 GM TUBE TOP SCH (09:10)
[2016-12-02] MEDS: predniSONE 20 MG TAB PEG SCH (11:11)
[2016-12-02 20:00] VITALS: BP 114/82; PULSE 95; RESP 20; TEMP 98.2; O2SAT 98
[2016-12-03] MEDS: azaTHIOprine 50 MG TAB PEG SCH ×2 (06:19→17:53)
[2016-12-03 08:00] VITALS: BP 109/74; PULSE 100; RESP 19; TEMP 97.5; O2SAT 97
[2016-12-03] MEDS: METOPROLOL TARTRATE 25 MG TAB PEG SCH ×2 (08:36→20:46)
[2016-12-03] MEDS: predniSONE 20 MG TAB PEG SCH (08:36)
[2016-12-03] MEDS: FLUoxetine HCL LIQUID 20 MG/5 ML CUP PEG SCH (08:36)
[2016-12-03] MEDS: COLLAGENASE OINT 30 GM TUBE TOP SCH (08:37)
[2016-12-03] MEDS: SENNOSIDES SYRUP 8.8 MG/5 ML CUP PEG SCH (08:37)
[2016-12-03] MEDS: ENOXAPARIN SODIUM 40 MG/0.4 ML SYRINGE SQ SCH (08:37)
[2016-12-03] MEDS: LACTOBACILLUS ACIDOPHILUS TAB PEG SCH ×2 (08:37→20:46)
[2016-12-03] MEDS: LANSOPRAZOLE SOLUTAB 30 MG TAB PEG SCH ×2 (08:37→20:46)
[2016-12-03] MEDS: LACTIC ACID (AMMONIUM LACTATE) 12% LOTION 225 GM BTL TOPICAL SCH ×2 (08:38→20:48)
[2016-12-03] MEDS: JUVEN POWDER 1 PACK G-TUBE SCH ×2 (08:39→20:49)
--- NOTE | 2016-12-03 11:07 | HHI.PR ---
Subjective Remarks Patient seen and examined today for neuro-Behcet's syndrome. No change in clinical status. Patient lying in bed comfortably. Objective Vitals Vital Signs Date Time Temp Pulse Resp B/P Pulse Ox O2 Delivery O2 Flow Rate FiO2 12/03/16 08:00 97.5 100 19 109/74 97 12/02/16 20:00 98.2 95 20 114/82 98 I/O 12/02/16 12/02/16 12/02/16 12/03/16 12/03/16 12/03/16 07:00 15:00 23:00 07:00 15:00 23:00 Output Total 0 ml 1 ml Balance 0 ml -1 ml Output Urine Total 0 ml Stool Total 1 ml # Voids 5 2 Result Diagram: 12/01/16 0507 12/01/16 0507 Objective Remarks GENERAL: Well-developed, cachectic and contracted. HEENT: Head is normocephalic without any lesions or masses noted. Facial features are symmetric. Eyes: Extraocular muscles are intact. Conjunctivae were clear. NECK: Supple without any masses. Trachea midline no deviation. No JVD, CARDIAC: Regular rhythm, tachycardia noted. S1/S2 are heard. No murmurs gallops or rubs. LUNGS: Clear to auscultation bilaterally. No wheeze, rhonchi or rales. No use of accessory muscles on inspiration or expiration. ABDOMEN: Soft, nontender. Nondistended. Bowel sounds heard in all 4 quadrants. No organomegaly or masses. Negative rebound, negative guarding. PEG tube noted without any excoriation. EXTREMITIES: No edema, pulses are equal bilaterally. No cyanosis or clubbing Procedures 07/19/16 EGD with PEG tube placement 09/27/16 colonoscopy Urinary Catheter: No Vascular Central Line Catheter: No A/P Assessment and Plan Neuro-Behcet, history of frontal lobe CVA, encephalopathy, history of meningitis , chronic No new changes on imaging. Patient was followed by neurology. Aphasic at baseline. Continue Imuran, prednisone EEG shows mild to moderate slowing at times of various depending on the epoch, there was no epileptic activity seen Continue PT/OT Palliative care following the patient and is still indicating the patient is making his own decisions, full code and full aggressive measures Sinus tachycardia. Stable Lopressor 25 mg twice daily. TSH, free T3, free T4 colon were normal Melena, bright red blood in stool, resolved Status post transfusion, emergency transferred to [facility] hospital, emergent endoscopy GI evaluated and managed patient with emergent colonoscopy showing small ulcer in the colon Continue Prevacid Sepsis, multiple episodes, resolved at this time Patient does have rather significant coccyx decubitus wound: Wound culture with pseudo fluorescens/putida, group D enterococcus VRE which is sensitive to Zosyn. Patient did have one urine culture of Daphney parapsilosis, was treated with fluconazole for 10 days. --Patient had episode of diarrhea, C. difficile cultures performed which was negative. --Possible aseptic meningitis Infectious disease consulted and last seen the patient on 10/18/16, at that time it was indicated to observe off antibiotics. 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 Would benefit from long-term steroids Prerenal azotemia, resolved Continue monitor renal function periodically Hypernatremia, Continue free water flushes 200 cc every 4 hours Monitor sodium level Decreased oral intake and dysphagia on initial presentation Speech therapy following intermittently. S/P barium swallow. Patient with severe dysphagia. GI was consulted and PEG tube was placed. Dietary recommending Glucerna 1.5 at 70 mL's an hour with Maury twice daily, Continue continuous tube feeding until patient appears to be more nutritionally stable and then will evaluate for bolus feeding Coccyx decubitus. Wound care nurse is following the patient for management Patient with specialty bed Mood disorder, depression Patient was evaluated by psychiatrist. Psychiatrist recommended Prozac Diabetes Glucose well controlled, DVT Prophylaxis: Lovenox, TEDs/SCDs. Discharge Planning Case management for discharge planning Ede Richardson Dec 03, 2016 11:07
[2016-12-03 20:00] VITALS: BP 104/84; PULSE 85; RESP 16; TEMP 97.3; O2SAT 97
[2016-12-04 04:00] VITALS: BP 122/93; PULSE 102; RESP 13; TEMP 97.9; O2SAT 97
[2016-12-04] MEDS: azaTHIOprine 50 MG TAB PEG SCH ×2 (05:45→17:20)
[2016-12-04 08:00] VITALS: BP 121/72; PULSE 119; RESP 21; TEMP 97.2; O2SAT 99
[2016-12-04] MEDS: JUVEN POWDER 1 PACK G-TUBE SCH ×2 (09:00→21:00)
[2016-12-04] MEDS: SENNOSIDES SYRUP 8.8 MG/5 ML CUP PEG SCH (09:00)
[2016-12-04] MEDS: FLUoxetine HCL LIQUID 20 MG/5 ML CUP PEG SCH (09:20)
[2016-12-04] MEDS: ENOXAPARIN SODIUM 40 MG/0.4 ML SYRINGE SQ SCH (09:20)
[2016-12-04] MEDS: LANSOPRAZOLE SOLUTAB 30 MG TAB PEG SCH ×2 (09:21→21:11)
[2016-12-04] MEDS: METOPROLOL TARTRATE 25 MG TAB PEG SCH ×2 (09:21→21:11)
[2016-12-04] MEDS: LACTOBACILLUS ACIDOPHILUS TAB PEG SCH ×2 (09:21→21:11)
[2016-12-04] MEDS: predniSONE 20 MG TAB PEG SCH (09:21)
[2016-12-04] MEDS: LACTIC ACID (AMMONIUM LACTATE) 12% LOTION 225 GM BTL TOPICAL SCH ×2 (09:23→21:11)
[2016-12-04] MEDS: COLLAGENASE OINT 30 GM TUBE TOP SCH (09:23)
--- NOTE | 2016-12-04 11:33 | HHI.PR ---
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 Patient appears to be depressed today because of his condition. Nursing were cleaning him up when I saw him. Objective Vitals Vital Signs Date Time Temp Pulse Resp B/P Pulse Ox O2 Delivery O2 Flow Rate FiO2 12/04/16 08:00 97.2 119 21 121/72 99 12/04/16 04:00 97.9 102 13 122/93 97 12/03/16 20:00 97.3 85 16 104/84 97 I/O 12/03/16 12/03/16 12/03/16 12/04/16 12/04/16 12/04/16 07:00 15:00 23:00 07:00 15:00 23:00 Intake Total 585 ml 199 ml 650 ml Output Total 450 ml 225 ml Balance 585 ml -251 ml 425 ml Intake Oral 0 ml Tube Feeding 485 ml 199 ml 650 ml Other 100 ml Output Urine Total 450 ml 225 ml # Voids 2 2 # Bowel Movements 1 0 0 Result Diagram: 12/01/16 0507 12/01/16 0507 Objective Remarks GENERAL: Well-developed, cachectic and contracted. HEENT: Head is normocephalic without any lesions or masses noted. Facial features are symmetric. Eyes: Extraocular muscles are intact. Conjunctivae were clear. NECK: Supple without any masses. Trachea midline no deviation. No JVD, CARDIAC: Regular rhythm, tachycardia noted. S1/S2 are heard. No murmurs gallops or rubs. LUNGS: Clear to auscultation bilaterally. No wheeze, rhonchi or rales. No use of accessory muscles on inspiration or expiration. ABDOMEN: Soft, nontender. Nondistended. Bowel sounds heard in all 4 quadrants. No organomegaly or masses. Negative rebound, negative guarding. PEG tube noted without any excoriation. EXTREMITIES: No edema, pulses are equal bilaterally. No cyanosis or clubbing Procedures 07/19/16 EGD with PEG tube placement 09/27/16 colonoscopy Urinary Catheter: No Vascular Central Line Catheter: No A/P Assessment and Plan Neuro-Behcet, history of frontal lobe CVA, encephalopathy, history of meningitis , chronic No new changes on imaging. Patient was followed by neurology. Aphasic at baseline. Continue Imuran, prednisone EEG shows mild to moderate slowing at times of various depending on the epoch, there was no epileptic activity seen Continue PT/OT Palliative care following the patient and is still indicating the patient is making his own decisions, full code and full aggressive measures Sinus tachycardia. Stable Lopressor 25 mg twice daily. TSH, free T3, free T4 colon were normal Melena, bright red blood in stool, resolved Status post transfusion, emergency transferred to [facility] hospital, emergent endoscopy GI evaluated and managed patient with emergent colonoscopy showing small ulcer in the colon Continue Prevacid Sepsis, multiple episodes, resolved at this time Patient does have rather significant coccyx decubitus wound: Wound culture with pseudo fluorescens/putida, group D enterococcus VRE which is sensitive to Zosyn. Patient did have one urine culture of Daphney parapsilosis, was treated with fluconazole for 10 days. --Patient had episode of diarrhea, C. difficile cultures performed which was negative. --Possible aseptic meningitis Infectious disease consulted and last seen the patient on 10/18/16, at that time it was indicated to observe off antibiotics. 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 Would benefit from long-term steroids Prerenal azotemia, resolved Continue monitor renal function periodically Hypernatremia, Continue free water flushes 200 cc every 4 hours Monitor sodium level Decreased oral intake and dysphagia on initial presentation Speech therapy following intermittently. S/P barium swallow. Patient with severe dysphagia. GI was consulted and PEG tube was placed. Dietary recommending Glucerna 1.5 at 70 mL's an hour with Maury twice daily, Continue continuous tube feeding until patient appears to be more nutritionally stable and then will evaluate for bolus feeding Coccyx decubitus. Wound care nurse is following the patient for management Patient with specialty bed Mood disorder, depression Patient was evaluated by psychiatrist. Psychiatrist recommended Prozac Diabetes Glucose well controlled, DVT Prophylaxis: Lovenox, TEDs/SCDs. Records are reviewed, no change in clinical status. No change in treatment plan Discharge Planning Case management for discharge planning Ede Richardson Dec 04, 2016 11:33
[2016-12-04 20:00] VITALS: BP 112/95; PULSE 86; RESP 18; TEMP 96; O2SAT 99
[2016-12-05] MEDS: azaTHIOprine 50 MG TAB PEG SCH ×2 (05:09→17:18)
[2016-12-05 08:37] VITALS: BP 126/95; PULSE 100; RESP 19; TEMP 96.1; O2SAT 97
[2016-12-05] MEDS: JUVEN POWDER 1 PACK G-TUBE SCH ×2 (09:00→21:00)
[2016-12-05] MEDS: SENNOSIDES SYRUP 8.8 MG/5 ML CUP PEG SCH (09:00)
[2016-12-05] MEDS: ENOXAPARIN SODIUM 40 MG/0.4 ML SYRINGE SQ SCH (09:32)
[2016-12-05] MEDS: FLUoxetine HCL LIQUID 20 MG/5 ML CUP PEG SCH (09:32)
[2016-12-05] MEDS: METOPROLOL TARTRATE 25 MG TAB PEG SCH ×2 (09:33→20:27)
[2016-12-05] MEDS: LACTOBACILLUS ACIDOPHILUS TAB PEG SCH ×2 (09:33→20:27)
[2016-12-05] MEDS: LANSOPRAZOLE SOLUTAB 30 MG TAB PEG SCH ×2 (09:33→20:27)
[2016-12-05] MEDS: predniSONE 20 MG TAB PEG SCH (09:33)
[2016-12-05] MEDS: LACTIC ACID (AMMONIUM LACTATE) 12% LOTION 225 GM BTL TOPICAL SCH ×2 (09:35→20:28)
[2016-12-05] MEDS: COLLAGENASE OINT 30 GM TUBE TOP SCH (09:36)
--- NOTE | 2016-12-05 11:35 | HHI.PR ---
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 No change in clinical status as time. Patient indicating that he would like to get turned in bed. Does not indicate any new problems Objective Vitals Vital Signs Date Time Temp Pulse Resp B/P Pulse Ox O2 Delivery O2 Flow Rate FiO2 12/05/16 08:37 96.1 100 19 126/95 97 12/04/16 20:00 96.0 86 18 112/95 99 I/O 12/04/16 12/04/16 12/04/16 12/05/16 12/05/16 12/05/16 07:00 15:00 23:00 07:00 15:00 23:00 Intake Total 650 ml 925 ml Output Total 225 ml 850 ml Balance 425 ml 75 ml Tube Feeding 650 ml 525 ml Other 400 ml Output Urine Total 225 ml 850 ml # Voids 2 2 # Bowel Movements 0 2 0 Result Diagram: 12/01/16 0507 12/01/16 0507 Objective Remarks GENERAL: Well-developed, cachectic and contracted. HEENT: Head is normocephalic without any lesions or masses noted. Facial features are symmetric. Eyes: Extraocular muscles are intact. Conjunctivae were clear. NECK: Supple without any masses. Trachea midline no deviation. No JVD, CARDIAC: Regular rhythm, tachycardia noted. S1/S2 are heard. No murmurs gallops or rubs. LUNGS: Clear to auscultation bilaterally. No wheeze, rhonchi or rales. No use of accessory muscles on inspiration or expiration. ABDOMEN: Soft, nontender. Nondistended. Bowel sounds heard in all 4 quadrants. No organomegaly or masses. Negative rebound, negative guarding. PEG tube noted without any excoriation. EXTREMITIES: No edema, pulses are equal bilaterally. No cyanosis or clubbing Procedures 07/19/16 EGD with PEG tube placement 09/27/16 colonoscopy Urinary Catheter: No Vascular Central Line Catheter: No A/P Assessment and Plan Neuro-Behcet, history of frontal lobe CVA, encephalopathy, history of meningitis , chronic No new changes on imaging. Patient was followed by neurology. Aphasic at baseline. Continue Imuran, prednisone EEG shows mild to moderate slowing at times of various depending on the epoch, there was no epileptic activity seen Continue PT/OT Palliative care following the patient and is still indicating the patient is making his own decisions, full code and full aggressive measures Sinus tachycardia. Stable Lopressor 25 mg twice daily. TSH, free T3, free T4 colon were normal Melena, bright red blood in stool, resolved Status post transfusion, emergency transferred to Main hospital, emergent endoscopy GI evaluated and managed patient with emergent colonoscopy showing small ulcer in the colon Continue Prevacid Sepsis, multiple episodes, resolved at this time Patient does have rather significant coccyx decubitus wound: Wound culture with pseudo fluorescens/putida, group D enterococcus VRE which is sensitive to Zosyn. Patient did have one urine culture of Daphney parapsilosis, was treated with fluconazole for 10 days. --Patient had episode of diarrhea, C. difficile cultures performed which was negative. --Possible aseptic meningitis Infectious disease consulted and last seen the patient on 10/18/16, at that time it was indicated to observe off antibiotics. 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 Would benefit from long-term steroids Prerenal azotemia, resolved Continue monitor renal function periodically Hypernatremia, Continue free water flushes 200 cc every 4 hours Monitor sodium level Decreased oral intake and dysphagia on initial presentation Speech therapy following intermittently. S/P barium swallow. Patient with severe dysphagia. GI was consulted and PEG tube was placed. Dietary recommending Glucerna 1.5 at 70 mL's an hour with Maury twice daily, Continue continuous tube feeding until patient appears to be more nutritionally stable and then will evaluate for bolus feeding Coccyx decubitus. Wound care nurse is following the patient for management Patient with specialty bed Mood disorder, depression Patient was evaluated by psychiatrist. Psychiatrist recommended Prozac Diabetes Glucose well controlled, DVT Prophylaxis: Lovenox, TEDs/SCDs. Records are reviewed, no change in clinical status. No change in treatment plan Discharge Planning Case management for discharge planning Ede Richardson Dec 05, 2016 11:34
[2016-12-05 20:00] VITALS: BP 121/88; PULSE 80; RESP 19; TEMP 97.9; O2SAT 99
[2016-12-06] MEDS: azaTHIOprine 50 MG TAB PEG SCH ×2 (05:27→13:09)
[2016-12-06 08:00] VITALS: BP 118/80; PULSE 82; RESP 19; TEMP 97.8; O2SAT 99
[2016-12-06] MEDS: COLLAGENASE OINT 30 GM TUBE TOP SCH (09:00)
[2016-12-06] MEDS: JUVEN POWDER 1 PACK G-TUBE SCH ×2 (09:00→21:02)
[2016-12-06] MEDS: LACTOBACILLUS ACIDOPHILUS TAB PEG SCH ×2 (09:26→21:01)
[2016-12-06] MEDS: SENNOSIDES SYRUP 8.8 MG/5 ML CUP PEG SCH (09:26)
[2016-12-06] MEDS: METOPROLOL TARTRATE 25 MG TAB PEG SCH ×2 (09:26→21:01)
[2016-12-06] MEDS: FLUoxetine HCL LIQUID 20 MG/5 ML CUP PEG SCH (09:26)
[2016-12-06] MEDS: LANSOPRAZOLE SOLUTAB 30 MG TAB PEG SCH ×2 (09:26→21:01)
[2016-12-06] MEDS: predniSONE 20 MG TAB PEG SCH (09:26)
[2016-12-06] MEDS: ENOXAPARIN SODIUM 40 MG/0.4 ML SYRINGE SQ SCH (09:26)
[2016-12-06] MEDS: LACTIC ACID (AMMONIUM LACTATE) 12% LOTION 225 GM BTL TOPICAL SCH ×2 (09:27→21:02)
--- NOTE | 2016-12-06 10:11 | HHI.PR ---
Subjective Remarks Follow-up for neuro-Behet's syndrome. Patient nods to answer questions. He denies any pain or shortness of breath. Objective Vitals Vital Signs Date Time Temp Pulse Resp B/P Pulse Ox O2 Delivery O2 Flow Rate FiO2 12/06/16 08:00 97.8 82 19 118/80 99 12/05/16 20:00 97.9 80 19 121/88 99 I/O 12/05/16 12/05/16 12/05/16 12/06/16 12/06/16 12/06/16 07:00 15:00 23:00 07:00 15:00 23:00 Intake Total 1300 ml 840 ml Output Total 950 ml 350 ml Balance 350 ml 490 ml Tube Feeding 700 ml 840 ml Other 600 ml Output Urine Total 950 ml 350 ml # Voids 2 # Bowel Movements 0 1 2 Objective Remarks GENERAL: Thin patient in no apparent distress. CARDIOVASCULAR: Regular rate and rhythm. RESPIRATORY: CTAB. Abnormal breathing, chronic. GASTROINTESTINAL: Abdomen soft, non-tender, nondistended. NEUROLOGICAL: Awake and alert. Nods head to answer questions. PSYCHIATRIC: Normal affect. 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 Patient followed by neurology. Aphasic at baseline. Neurology following the patient Continue Imuran, prednisone EEG shows mild to moderate slowing at times of various depending on the epoch, there was no epileptic activity seen Continue PT/OT Palliative care following the patient and is still indicating the patient is making his own decisions, full code and full aggressive measures [place] as needed for pain. Sinus tachycardia: Improved. Lopressor 25 mg twice daily. TSH, free T3, free T4 were normal Melena, bright red blood in stool: Resolved Status post transfusion, emergently transferred to main hospital, emergent endoscopy GI evaluated and managed patient with emergent colonoscopy showing small ulcer in the colon Continue Prevacid Hemoglobin stable at 11.4 on 11/04. Sepsis, multiple episodes: Resolved at this time Patient does have rather significant coccyx decubitus wound: Wound culture with pseudo fluorescens/putida, group D enterococcus VRE which is sensitive to Zosyn. Patient did have one urine culture of Daphney parapsilosis, was treated with fluconazole for 10 days. --Patient had episode of diarrhea, C. difficile cultures performed which was negative. --Possible aseptic meningitis Infectious disease consulted and last seen the patient on 10/18/16, at that time it was indicated to observe off antibiotics. 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 Would benefit from long-term steroids. Prerenal azotemia: Improved Continue IV fluids Continue to monitor renal function Hypernatremia: Resolved Continue free water flushes 200 cc every 4 hours Continue IV fluids Monitor sodium level Decreased oral intake and dysphagia on initial presentation Speech therapy following intermittently. S/P barium swallow. Patient with severe dysphagia. GI consulted and PEG tube was placed. Dietary recommending Glucerna 1.5 at 70 mL/hour with Maury twice daily. Coccyx decubitus: Wound care nurse is following the patient for management. Recommends continuing to change dressings with Santyl ointment and cleanse with normal saline only. Do not apply briefs to patient. Specialty bed ordered. Ankle ulcer: R lateral malleolus, dry. -Nurse is advised patient needs to be wearing foam heel protectors. Wound care has evaluated, recommends painting area with skin prep or Betadine bid and leave open to air. Depression Patient was evaluated by psychiatrist. 11/12: Prozac increased to 20 mg daily. Diabetes Glucose well controlled. Discontinued Accu-Cheks and sliding scale insulin DVT Prophylaxis: Lovenox, TEDs/SCDs. Discharge Planning 11/08: CM requested [facility] to evaluate for placement. Problem Qualifiers (1) GI bleed: Qualified Code: K92.2 - Gastrointestinal hemorrhage, unspecified gastrointestinal hemorrhage type (2) UTI (urinary tract infection): Qualified Code: N30.00 - Acute cystitis without hematuria (3) Effusion of hip joint: Qualified Code: M25.459 - Effusion of hip joint, unspecified laterality Mari Talamantes Dec 06, 2016 10:10
[2016-12-06 20:04] VITALS: BP 106/84; PULSE 89; RESP 22; TEMP 98.1; O2SAT 97
[2016-12-07] MEDS: azaTHIOprine 50 MG TAB PEG SCH ×2 (06:14→12:41)
[2016-12-07 08:00] VITALS: BP 143/92; PULSE 99; RESP 23; TEMP 97.7; O2SAT 100
[2016-12-07] MEDS: SENNOSIDES SYRUP 8.8 MG/5 ML CUP PEG SCH (08:28)
[2016-12-07] MEDS: ENOXAPARIN SODIUM 40 MG/0.4 ML SYRINGE SQ SCH (08:28)
[2016-12-07] MEDS: METOPROLOL TARTRATE 25 MG TAB PEG SCH ×2 (08:28→21:00)
[2016-12-07] MEDS: FLUoxetine HCL LIQUID 20 MG/5 ML CUP PEG SCH (08:28)
[2016-12-07] MEDS: LANSOPRAZOLE SOLUTAB 30 MG TAB PEG SCH ×2 (08:28→21:07)
[2016-12-07] MEDS: LACTOBACILLUS ACIDOPHILUS TAB PEG SCH ×2 (08:28→21:07)
[2016-12-07] MEDS: predniSONE 20 MG TAB PEG SCH (08:28)
[2016-12-07] MEDS: LACTIC ACID (AMMONIUM LACTATE) 12% LOTION 225 GM BTL TOPICAL SCH ×2 (08:29→21:08)
[2016-12-07] MEDS: COLLAGENASE OINT 30 GM TUBE TOP SCH (08:29)
[2016-12-07] MEDS: JUVEN POWDER 1 PACK G-TUBE SCH ×2 (09:00→21:09)
--- NOTE | 2016-12-07 13:30 | HHI.PR ---
Subjective Remarks Follow-up for neuro Behet's syndrome. Nurse states patient had 60 cc of feeding tube residual this morning. Patient nods his head yes when I asked if he is okay today. Objective Vitals Vital Signs Date Time Temp Pulse Resp B/P Pulse Ox O2 Delivery O2 Flow Rate FiO2 12/07/16 08:00 97.7 99 23 143/92 100 12/06/16 20:04 98.1 89 22 106/84 97 I/O 12/06/16 12/06/16 12/06/16 12/07/16 12/07/16 12/07/16 07:00 15:00 23:00 07:00 15:00 23:00 Intake Total 840 ml 2060 ml Output Total 350 ml 325 ml Balance 490 ml 1735 ml Tube Feeding 840 ml 1760 ml Other 300 ml Output Urine Total 350 ml 325 ml # Bowel Movements 2 1 1 Objective Remarks GENERAL: Thin patient in no apparent distress. CARDIOVASCULAR: Regular rate and rhythm. RESPIRATORY: Transmitted upper respiratory sounds making auscultation difficult. GASTROINTESTINAL: Abdomen soft, non-tender, nondistended. NEUROLOGICAL: Awake and alert. Nods head to answer questions. PSYCHIATRIC: Stable affect. 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 Patient followed by neurology. Aphasic at baseline. Neurology following the patient Continue Imuran, prednisone EEG shows mild to moderate slowing at times of various depending on the epoch, there was no epileptic activity seen Continue PT/OT Palliative care following the patient and is still indicating the patient is making his own decisions, full code and full aggressive measures [place] as needed for pain. Sinus tachycardia: Improved. Lopressor 25 mg twice daily. TSH, free T3, free T4 were normal Melena, bright red blood in stool: Resolved Status post transfusion, emergently transferred to main hospital, emergent endoscopy GI evaluated and managed patient with emergent colonoscopy showing small ulcer in the colon Continue Prevacid Hemoglobin stable at 11.4 on 11/04. Sepsis, multiple episodes: Resolved at this time Patient does have rather significant coccyx decubitus wound: Wound culture with pseudo fluorescens/putida, group D enterococcus VRE which is sensitive to Zosyn. Patient did have one urine culture of Daphney parapsilosis, was treated with fluconazole for 10 days. --Patient had episode of diarrhea, C. difficile cultures performed which was negative. --Possible aseptic meningitis Infectious disease consulted and last seen the patient on 10/18/16, at that time it was indicated to observe off antibiotics. 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 Would benefit from long-term steroids. Prerenal azotemia: Improved Continue IV fluids Continue to monitor renal function Hypernatremia: Resolved Continue free water flushes 200 cc every 4 hours Continue IV fluids Monitor sodium level Decreased oral intake and dysphagia on initial presentation Speech therapy following intermittently. S/P barium swallow. Patient with severe dysphagia. GI consulted and PEG tube was placed. Dietary recommending Glucerna 1.5 at 70 mL/hour with Maury twice daily. Gastric residual today, no change clinically. Nurse to recheck prior to restarting feeding. Coccyx decubitus: Wound care nurse is following the patient for management. Recommends continuing to change dressings with Santyl ointment and cleanse with normal saline only. Do not apply briefs to patient. Specialty bed ordered. Ankle ulcer: R lateral malleolus, dry. -Nurse is advised patient needs to be wearing foam heel protectors. Wound care has evaluated, recommends painting area with skin prep or Betadine bid and leave open to air. Depression Patient was evaluated by psychiatrist. 11/12: Prozac increased to 20 mg daily. Diabetes Glucose well controlled. Discontinued Accu-Cheks and sliding scale insulin DVT Prophylaxis: Barbaranox, TEDs/SCDs. Discharge Planning 11/08: CM requested [facility] to evaluate for placement. Problem Qualifiers (1) GI bleed: Qualified Code: K92.2 - Gastrointestinal hemorrhage, unspecified gastrointestinal hemorrhage type (2) UTI (urinary tract infection): Qualified Code: N30.00 - Acute cystitis without hematuria (3) Effusion of hip joint: Qualified Code: M25.459 - Effusion of hip joint, unspecified laterality Mari Talamantes Dec 07, 2016 13:30
[2016-12-07 20:09] VITALS: BP 95/86; PULSE 70; RESP 22; TEMP 97.6; O2SAT 99
[2016-12-08] MEDS: azaTHIOprine 50 MG TAB PEG SCH ×2 (06:25→16:51)
[2016-12-08 07:56] LABS: AUTOMATED NEUTROPHIL # 6.5 TH/MM3 (1.8-7.7); BASOPHIL # 0.1 TH/MM3 (0-0.2); BASOPHIL % 0.6 % (0.0-2.0); EOSINOPHIL # 0.2 TH/MM3 (0-0.4); EOSINOPHIL % 1.6 % (0.0-4.0); HEMATOCRIT 37.2 % (39.0-51.0); HEMOGLOBIN 12.6 GM/DL (13.0-17.0); LYMPH % 24.5 % (9.0-44.0); LYMPHOCYTE # 2.4 TH/MM3 (1.0-4.8); MEAN CELL VOLUME 91.3 FL (80.0-100.0); MEAN CORPUSCULAR HEMOGLOBIN 30.8 PG (27.0-34.0); MEAN CORPUSCULAR HGB CONC 33.8 % (32.0-36.0); MEAN PLATELET VOLUME 10.6 FL (7.0-11.0); MONO % 4.5 % (0.0-8.0); MONOCYTE # 0.4 TH/MM3 (0-0.9); NEUT % 68.8 % (16.0-70.0); PLATELET COUNT 232 TH/MM3 (150-450); RED BLOOD COUNT 4.08 MIL/MM3 (4.50-5.90); RED CELL DISTRIBUTION WIDTH 15.7 % (11.6-17.2); WHITE BLOOD COUNT 9.6 TH/MM3 (4.0-11.0)
[2016-12-08 08:00] VITALS: BP 106/78; PULSE 85; RESP 20; TEMP 96.5; O2SAT 94
[2016-12-08 08:15] LABS: CALCIUM 9.1 MG/DL (8.5-10.1)
[2016-12-08 08:16] LABS: BICARBONATE 29.8 MEQ/L (21.0-32.0)
[2016-12-08 08:19] LABS: CREATININE 0.66 MG/DL (0.60-1.30)
[2016-12-08] MEDS: ENOXAPARIN SODIUM 40 MG/0.4 ML SYRINGE SQ SCH (08:24)
[2016-12-08] MEDS: FLUoxetine HCL LIQUID 20 MG/5 ML CUP PEG SCH (08:24)
[2016-12-08] MEDS: LANSOPRAZOLE SOLUTAB 30 MG TAB PEG SCH ×2 (08:24→20:23)
[2016-12-08] MEDS: LACTOBACILLUS ACIDOPHILUS TAB PEG SCH ×2 (08:24→20:23)
[2016-12-08] MEDS: METOPROLOL TARTRATE 25 MG TAB PEG SCH ×2 (08:24→20:24)
[2016-12-08] MEDS: predniSONE 20 MG TAB PEG SCH (08:24)
[2016-12-08] MEDS: SENNOSIDES SYRUP 8.8 MG/5 ML CUP PEG SCH (08:25)
[2016-12-08] MEDS: PADIMATE (CHAPSTICK) 4.5 GM TUBE TOPICAL PRN (08:26)
[2016-12-08] MEDS: LACTIC ACID (AMMONIUM LACTATE) 12% LOTION 225 GM BTL TOPICAL SCH ×2 (08:26→20:26)
[2016-12-08] MEDS: JUVEN POWDER 1 PACK G-TUBE SCH ×2 (08:26→20:24)
[2016-12-08] MEDS: COLLAGENASE OINT 30 GM TUBE TOP SCH (08:26)
--- NOTE | 2016-12-08 09:35 | HHI.PR ---
Subjective Remarks Follow-up for neuro Behet's syndrome. Nods his head to answer questions. Patient denies any pain. Denies any shortness of breath. Objective Vitals Vital Signs Date Time Temp Pulse Resp B/P Pulse Ox O2 Delivery O2 Flow Rate FiO2 12/08/16 08:00 96.5 85 20 106/78 94 12/07/16 20:09 97.6 70 22 95/86 99 I/O 12/07/16 12/07/16 12/07/16 12/08/16 12/08/16 12/08/16 07:00 15:00 23:00 07:00 15:00 23:00 Intake Total 0 ml Output Total 850 ml 550 ml Balance -850 ml -550 ml Intake Oral 0 ml Output Urine Total 850 ml 550 ml # Bowel Movements 3 1 3 Result Diagram: 12/08/16 0700 12/08/16 0700 Objective Remarks GENERAL: Thin patient in no apparent distress. CARDIOVASCULAR: Regular rate and rhythm. RESPIRATORY: Coarse due to transmitted upper respiratory sounds. GASTROINTESTINAL: Abdomen soft, non-tender, nondistended. NEUROLOGICAL: Awake and alert. Nods head to answer questions. PSYCHIATRIC: Stable affect. 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 Patient followed by neurology. Aphasic at baseline. Neurology following the patient Continue Imuran, prednisone EEG shows mild to moderate slowing at times of various depending on the epoch, there was no epileptic activity seen Continue PT/OT Palliative care following the patient and is still indicating the patient is making his own decisions, full code and full aggressive measures [place] as needed for pain. Sinus tachycardia: Improved. Lopressor 25 mg twice daily. TSH, free T3, free T4 were normal Melena, bright red blood in stool: Resolved Status post transfusion, emergently transferred to main hospital, emergent endoscopy GI evaluated and managed patient with emergent colonoscopy showing small ulcer in the colon Continue Prevacid Hemoglobin stable at 11.4 on 11/04. Sepsis, multiple episodes: Resolved at this time Patient does have rather significant coccyx decubitus wound: Wound culture with pseudo fluorescens/putida, group D enterococcus VRE which is sensitive to Zosyn. Patient did have one urine culture of Daphney parapsilosis, was treated with fluconazole for 10 days. --Patient had episode of diarrhea, C. difficile cultures performed which was negative. --Possible aseptic meningitis Infectious disease consulted and last seen the patient on 10/18/16, at that time it was indicated to observe off antibiotics. 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 Would benefit from long-term steroids. Prerenal azotemia: Improved Continue IV fluids Continue to monitor renal function Hypernatremia: Resolved Continue free water flushes 200 cc every 4 hours Continue IV fluids Monitor sodium level Decreased oral intake and dysphagia on initial presentation Speech therapy following intermittently. S/P barium swallow. Patient with severe dysphagia. GI consulted and PEG tube was placed. Dietary recommending Glucerna 1.5 at 70 mL/hour with Maury twice daily. Gastric residual today, no change clinically. Nurse to recheck prior to restarting feeding. Coccyx decubitus: Wound care nurse is following the patient for management.Recommends continuing to change dressings with Santyl ointment and cleansing with normal saline only. Apply nickly thick santyl ointment to slightly moistened maxorb II dressing loosly packed in wound bed and cover with bordered gauze, to be changed daily. Specialty bed ordered. Ankle ulcer: R lateral malleolus, dry. -Nurse is advised patient needs to be wearing foam heel protectors. Wound care has evaluated, recommends painting area with skin prep or Betadine bid and leave open to air. Depression Patient was evaluated by psychiatrist. 11/12: Prozac increased to 20 mg daily. Diabetes Glucose well controlled. Discontinued Accu-Cheks and sliding scale insulin DVT Prophylaxis: Lovenox, TEDs/SCDs. Discharge Planning 11/08: CM requested [facility] to evaluate for placement. Problem Qualifiers (1) GI bleed: Qualified Code: K92.2 - Gastrointestinal hemorrhage, unspecified gastrointestinal hemorrhage type (2) UTI (urinary tract infection): Qualified Code: N30.00 - Acute cystitis without hematuria (3) Effusion of hip joint: Qualified Code: M25.459 - Effusion of hip joint, unspecified laterality Mari Talamantes Dec 08, 2016 09:35 Mari Talamantes Dec 08, 2016 09:35
[2016-12-08 20:00] VITALS: BP 108/82; PULSE 94; RESP 16; TEMP 96.5; O2SAT 97
[2016-12-09] MEDS: azaTHIOprine 50 MG TAB PEG SCH ×2 (05:27→17:04)
[2016-12-09] MEDS: METOPROLOL TARTRATE 25 MG TAB PEG SCH ×2 (09:00→20:20)
[2016-12-09] MEDS: COLLAGENASE OINT 30 GM TUBE TOP SCH (09:00)
[2016-12-09] MEDS: JUVEN POWDER 1 PACK G-TUBE SCH ×2 (09:00→20:25)
[2016-12-09] MEDS: LACTIC ACID (AMMONIUM LACTATE) 12% LOTION 225 GM BTL TOPICAL SCH ×2 (09:00→20:21)
[2016-12-09] MEDS: SENNOSIDES SYRUP 8.8 MG/5 ML CUP PEG SCH (09:18)
[2016-12-09] MEDS: FLUoxetine HCL LIQUID 20 MG/5 ML CUP PEG SCH (09:18)
[2016-12-09] MEDS: LACTOBACILLUS ACIDOPHILUS TAB PEG SCH ×2 (09:19→20:20)
[2016-12-09] MEDS: ENOXAPARIN SODIUM 40 MG/0.4 ML SYRINGE SQ SCH (09:19)
[2016-12-09] MEDS: LANSOPRAZOLE SOLUTAB 30 MG TAB PEG SCH ×2 (09:19→20:20)
[2016-12-09] MEDS: predniSONE 20 MG TAB PEG SCH (09:19)
[2016-12-09 09:48] VITALS: BP 102/77; PULSE 88; RESP 16; TEMP 96.8; O2SAT 96
--- NOTE | 2016-12-09 11:59 | HHI.PR ---
Subjective Remarks Follow-up for neuro Behet's syndrome. The patient nods to answer yes or no questions. He denies any pain. Denies any shortness of breath. He is in a comfortable position currently. Objective Vitals Vital Signs Date Time Temp Pulse Resp B/P Pulse Ox O2 Delivery O2 Flow Rate FiO2 12/09/16 09:48 96.8 88 16 102/77 96 12/08/16 20:00 96.5 94 16 108/82 97 I/O 12/08/16 12/08/16 12/08/16 12/09/16 12/09/16 12/09/16 07:00 15:00 23:00 07:00 15:00 23:00 Intake Total 0 ml 480 ml Output Total 550 ml Balance -550 ml 0 ml 480 ml Intake Oral 0 ml Tube Feeding 300 ml Other 180 ml Output Urine Total 550 ml # Voids 3 2 2 # Bowel Movements 3 0 0 1 Result Diagram: 12/08/16 0700 12/08/16 0700 Objective Remarks GENERAL: Thin patient in no apparent distress. CARDIOVASCULAR: Regular rate and rhythm. RESPIRATORY: Grunting type of breathing which is chronic. Otherwise clear. GASTROINTESTINAL: Abdomen soft, non-tender, nondistended. NEUROLOGICAL: Awake and alert. Nods head to answer questions. PSYCHIATRIC: Stable affect. 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 Patient followed by neurology. Aphasic at baseline. Neurology following the patient Continue Imuran, prednisone EEG shows mild to moderate slowing at times of various depending on the epoch, there was no epileptic activity seen Continue PT/OT Palliative care following the patient and is still indicating the patient is making his own decisions, full code and full aggressive measures [place] as needed for pain. Sinus tachycardia: Improved. Lopressor 25 mg twice daily. TSH, free T3, free T4 were normal Melena, bright red blood in stool: Resolved Status post transfusion, emergently transferred to [facility], emergent endoscopy GI evaluated and managed patient with emergent colonoscopy showing small ulcer in the colon Continue Prevacid Hemoglobin stable at 11.4 on 11/04. Sepsis, multiple episodes: Resolved at this time Patient does have rather significant coccyx decubitus wound: Wound culture with pseudo fluorescens/putida, group D enterococcus VRE which is sensitive to Zosyn. Patient did have one urine culture of Daphney parapsilosis, was treated with fluconazole for 10 days. --Patient had episode of diarrhea, C. difficile cultures performed which was negative. --Possible aseptic meningitis Infectious disease consulted and last seen the patient on 10/18/16, at that time it was indicated to observe off antibiotics. 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 Would benefit from long-term steroids. Prerenal azotemia: Improved Continue IV fluids Continue to monitor renal function Hypernatremia: Resolved Continue free water flushes 200 cc every 4 hours Continue IV fluids Monitor sodium level Decreased oral intake and dysphagia on initial presentation Speech therapy following intermittently. S/P barium swallow. Patient with severe dysphagia. GI consulted and PEG tube was placed. Dietary recommending Glucerna 1.5 at 70 mL/hour with Maury twice daily. Coccyx decubitus: Wound care nurse is following the patient for management.Recommends continuing to change dressings with Santyl ointment and cleansing with normal saline only. Apply nickly thick santyl ointment to slightly moistened maxorb II dressing loosely packed in wound bed and cover with bordered gauze, to be changed daily. Specialty bed Ankle ulcer: R lateral malleolus. -Foam boots. Wound care has evaluated; paint with skin prep or betadine and leave open to air. Depression Patient was evaluated by psychiatrist. 11/12: Prozac increased to 20 mg daily. Diabetes Glucose well controlled. Discontinued Accu-Cheks and sliding scale insulin DVT Prophylaxis: Lovenox, TEDs/SCDs. Discharge Planning 11/08: CM requested [facility] to evaluate for placement. Problem Qualifiers (1) GI bleed: Qualified Code: K92.2 - Gastrointestinal hemorrhage, unspecified gastrointestinal hemorrhage type (2) UTI (urinary tract infection): Qualified Code: N30.00 - Acute cystitis without hematuria (3) Effusion of hip joint: Qualified Code: M25.459 - Effusion of hip joint, unspecified laterality Mari Talamantes Dec 09, 2016 11:59
--- NOTE | 2016-12-09 18:37 | PD.WCN.NOT ---
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 Removed bordered gauze dressing in place to reveal wound to sacrococcygeal area. Dressing already changed today with Santyl to wound bed and loosely packed Maxorb II.Sacrococcygeal wound bed noted with 100% coverage beefy red granulation tissue.Wound noted with minimal serous drainage. Wound appears improved from previous assessment. Wound measurements are as follows: 3 x 1 x 0.9. Undermining noted from 11 to 4 o'clock 1.1 cm at the deepest. New epithelial tissue noted at wound margins.Periwound assessed with scar tissue but is otherwise unremarkable. Skin prep applied to periwound. Repacked wound loosely with Maxorb II.Covered wound with small bordered gauze dressing. Peeled back adhesive foam dressing to reveal open wound over R lateral malleolus. Wound presents with 80% yellow adherent slough and 20% pink tissue.Presence of slough in wound over rob prominence indicates an unstageable pressure injury.Wound has minimal sero-sanguinous drainage. Wound measurements are as follows 1.9 x 1.5 x slough.Reapplied Adhesive foam dressing back in place. Wound care will continue to follow patient weekly. Communicated with: With APRYL Marquez Recommendation: Recommend to continue dressing changes with Santyl and Maxorb II to sacral/ coccyx area, cleansing wound with normal saline only. Also continue Santyl and adhesive foam dressing to R lateral malleolus wound. Arleen Gibbs [facility] Dec 09, 2016 18:37
[2016-12-09 20:00] VITALS: BP 98/75; PULSE 93; RESP 16; TEMP 97; O2SAT 96
[2016-12-10] MEDS: azaTHIOprine 50 MG TAB PEG SCH ×2 (05:16→17:04)
[2016-12-10 08:00] VITALS: BP 117/70; PULSE 90; RESP 16; TEMP 98.4; O2SAT 94
[2016-12-10] MEDS: JUVEN POWDER 1 PACK G-TUBE SCH ×2 (09:00→20:25)
[2016-12-10] MEDS: COLLAGENASE OINT 30 GM TUBE TOP SCH (09:00)
[2016-12-10] MEDS: METOPROLOL TARTRATE 25 MG TAB PEG SCH ×2 (09:00→20:23)
--- NOTE | 2016-12-10 09:24 | HHI.PR ---
Subjective Remarks Follow-up for neuro Behet's syndrome. Patient nods his head yes when asked if he is breathing okay. Objective Vitals Vital Signs Date Time Temp Pulse Resp B/P Pulse Ox O2 Delivery O2 Flow Rate FiO2 12/09/16 20:00 97.0 93 16 98/75 96 12/09/16 09:48 96.8 88 16 102/77 96 I/O 12/09/16 12/09/16 12/09/16 12/10/16 12/10/16 12/10/16 07:00 15:00 23:00 07:00 15:00 23:00 Intake Total 480 ml 970 ml 840 ml Balance 480 ml 970 ml 840 ml Tube Feeding 300 ml 770 ml 840 ml Tube Irrigant 200 ml Other 180 ml # Voids 2 2 2 # Bowel Movements 1 1 1 Result Diagram: 12/08/16 0700 12/08/16 0700 Objective Remarks GENERAL: Thin patient in no apparent distress. CARDIOVASCULAR: Regular rate and rhythm. RESPIRATORY: Grunting type of breathing which is chronic. Otherwise clear. GASTROINTESTINAL: Abdomen soft, non-tender, nondistended. NEUROLOGICAL: Awake and alert. Nods head to answer questions. 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 Patient followed by neurology. Aphasic at baseline. Neurology following the patient Continue Imuran, prednisone EEG shows mild to moderate slowing at times of various depending on the epoch, there was no epileptic activity seen Continue PT/OT Palliative care following the patient and is still indicating the patient is making his own decisions, full code and full aggressive measures [place] as needed for pain. Sinus tachycardia: Improved. Lopressor 25 mg twice daily. TSH, free T3, free T4 were normal Melena, bright red blood in stool: Resolved Status post transfusion, emergently transferred to main hospital, emergent endoscopy GI evaluated and managed patient with emergent colonoscopy showing small ulcer in the colon Continue Prevacid Hemoglobin stable at 11.4 on 11/04. Sepsis, multiple episodes: Resolved at this time Patient does have rather significant coccyx decubitus wound: Wound culture with pseudo fluorescens/putida, group D enterococcus VRE which is sensitive to Zosyn. Patient did have one urine culture of Daphney parapsilosis, was treated with fluconazole for 10 days. --Patient had episode of diarrhea, C. difficile cultures performed which was negative. --Possible aseptic meningitis Infectious disease consulted and last seen the patient on 10/18/16, at that time it was indicated to observe off antibiotics. 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 Would benefit from long-term steroids. Prerenal azotemia: Improved Continue IV fluids Continue to monitor renal function Hypernatremia: Resolved Continue free water flushes 200 cc every 4 hours Continue IV fluids Monitor sodium level Decreased oral intake and dysphagia on initial presentation Speech therapy following intermittently. S/P barium swallow. Patient with severe dysphagia. GI consulted and PEG tube was placed. Dietary recommending Glucerna 1.5 at 70 mL/hour with Maury twice daily. Coccyx decubitus: Wound care nurse is following the patient for management.Recommends continuing to change dressings with Santyl ointment and cleansing with normal saline only. Apply nickly thick santyl ointment to slightly moistened maxorb II dressing loosely packed in wound bed and cover with bordered gauze, to be changed daily. Specialty bed Ankle ulcer: R lateral malleolus. -Foam boots. Wound care has evaluated; paint with skin prep or betadine and leave open to air. Depression Patient was evaluated by psychiatrist. 11/12: Prozac increased to 20 mg daily. Diabetes Glucose well controlled. Discontinued Accu-Cheks and sliding scale insulin DVT Prophylaxis: Lovenox, TEDs/SCDs. Discharge Planning 11/08: CM requested [facility] to evaluate for placement. Problem Qualifiers (1) GI bleed: Qualified Code: K92.2 - Gastrointestinal hemorrhage, unspecified gastrointestinal hemorrhage type (2) UTI (urinary tract infection): Qualified Code: N30.00 - Acute cystitis without hematuria (3) Effusion of hip joint: Qualified Code: M25.459 - Effusion of hip joint, unspecified laterality Mari Talamantes Dec 10, 2016 09:23
[2016-12-10] MEDS: LACTOBACILLUS ACIDOPHILUS TAB PEG SCH ×2 (10:50→20:23)
[2016-12-10] MEDS: SENNOSIDES SYRUP 8.8 MG/5 ML CUP PEG SCH (10:50)
[2016-12-10] MEDS: FLUoxetine HCL LIQUID 20 MG/5 ML CUP PEG SCH (10:50)
[2016-12-10] MEDS: predniSONE 20 MG TAB PEG SCH (10:51)
[2016-12-10] MEDS: LANSOPRAZOLE SOLUTAB 30 MG TAB PEG SCH ×2 (10:51→20:23)
[2016-12-10] MEDS: ENOXAPARIN SODIUM 40 MG/0.4 ML SYRINGE SQ SCH (10:51)
[2016-12-10] MEDS: LACTIC ACID (AMMONIUM LACTATE) 12% LOTION 225 GM BTL TOPICAL SCH ×2 (10:53→20:24)
[2016-12-10 20:00] VITALS: BP 104/86; PULSE 90; RESP 20; TEMP 98; O2SAT 21
[2016-12-11] MEDS: azaTHIOprine 50 MG TAB PEG SCH ×2 (05:26→18:18)
[2016-12-11 08:00] VITALS: BP 118/80; PULSE 88; RESP 18; TEMP 98; O2SAT 95
[2016-12-11] MEDS: SENNOSIDES SYRUP 8.8 MG/5 ML CUP PEG SCH (09:00)
[2016-12-11] MEDS: COLLAGENASE OINT 30 GM TUBE TOP SCH (09:00)
[2016-12-11] MEDS: JUVEN POWDER 1 PACK G-TUBE SCH ×3 (09:00→21:00)
[2016-12-11] MEDS: predniSONE 20 MG TAB PEG SCH (09:58)
[2016-12-11] MEDS: FLUoxetine HCL LIQUID 20 MG/5 ML CUP PEG SCH (09:58)
[2016-12-11] MEDS: ENOXAPARIN SODIUM 40 MG/0.4 ML SYRINGE SQ SCH (09:58)
[2016-12-11] MEDS: LACTOBACILLUS ACIDOPHILUS TAB PEG SCH ×2 (09:58→20:46)
[2016-12-11] MEDS: LANSOPRAZOLE SOLUTAB 30 MG TAB PEG SCH ×2 (09:58→20:46)
[2016-12-11] MEDS: METOPROLOL TARTRATE 25 MG TAB PEG SCH ×2 (09:58→20:46)
[2016-12-11] MEDS: LACTIC ACID (AMMONIUM LACTATE) 12% LOTION 225 GM BTL TOPICAL SCH ×2 (09:59→20:53)
--- NOTE | 2016-12-11 11:17 | HHI.PR ---
Subjective Remarks Follow-up for neuro Behet's syndrome. Denies any shortness of breath. Objective Vitals Vital Signs Date Time Temp Pulse Resp B/P Pulse Ox O2 Delivery O2 Flow Rate FiO2 12/11/16 08:00 98.0 88 18 118/80 95 12/10/16 20:00 98.0 90 20 104/86 21 I/O 12/10/16 12/10/16 12/10/16 12/11/16 12/11/16 12/11/16 07:00 15:00 23:00 07:00 15:00 23:00 Intake Total 840 ml 1030 ml Balance 840 ml 1030 ml Tube Feeding 840 ml 630 ml Other 400 ml # Voids 2 5 2 # Bowel Movements 1 2 Result Diagram: 12/08/16 0712/08/16 07 Objective Remarks GENERAL: Thin patient in no apparent distress. CARDIOVASCULAR: Tachycardic rate with regular rhythm. RESPIRATORY: Abnormal breathing which is chronic. Mild upper respiratory secretions. Otherwise clear. GASTROINTESTINAL: Abdomen soft, non-tender, nondistended. NEUROLOGICAL: Awake and alert. Nods head to answer questions. 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 Patient followed by neurology. Aphasic at baseline. Neurology following the patient Continue Imuran, prednisone EEG shows mild to moderate slowing at times of various depending on the epoch, there was no epileptic activity seen Continue PT/OT Palliative care following the patient and is still indicating the patient is making his own decisions, full code and full aggressive measures [place] as needed for pain. Sinus tachycardia: Improved. Lopressor 25 mg twice daily. TSH, free T3, free T4 were normal Melena, bright red blood in stool: Resolved Status post transfusion, emergently transferred to [facility], emergent endoscopy GI evaluated and managed patient with emergent colonoscopy showing small ulcer in the colon Continue Prevacid Hemoglobin stable at 11.4 on 11/04. Sepsis, multiple episodes: Resolved at this time Patient does have rather significant coccyx decubitus wound: Wound culture with pseudo fluorescens/putida, group D enterococcus VRE which is sensitive to Zosyn. Patient did have one urine culture of Daphney parapsilosis, was treated with fluconazole for 10 days. --Patient had episode of diarrhea, C. difficile cultures performed which was negative. --Possible aseptic meningitis Infectious disease consulted and last seen the patient on 10/18/16, at that time it was indicated to observe off antibiotics. 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 Would benefit from long-term steroids. Prerenal azotemia: Improved Continue IV fluids Continue to monitor renal function Hypernatremia: Resolved Continue free water flushes 200 cc every 4 hours Continue IV fluids Monitor sodium level Decreased oral intake and dysphagia on initial presentation Speech therapy following intermittently. S/P barium swallow. Patient with severe dysphagia. GI consulted and PEG tube was placed. Dietary recommending Glucerna 1.5 at 70 mL/hour with Maury twice daily. Coccyx decubitus: Wound care nurse is following the patient for management.Recommends continuing to change dressings with Santyl ointment and cleansing with normal saline only. Apply nickly thick santyl ointment to slightly moistened maxorb II dressing loosely packed in wound bed and cover with bordered gauze, to be changed daily. Specialty bed Ankle ulcer: R lateral malleolus. -Foam boots. Wound care has evaluated; paint with skin prep or betadine and leave open to air. Depression Patient was evaluated by psychiatrist. 11/12: Prozac increased to 20 mg daily. Diabetes Glucose well controlled. Discontinued Accu-Cheks and sliding scale insulin DVT Prophylaxis: Lovenox, TEDs/SCDs. Discharge Planning 11/08: CM requested [facility] to evaluate for placement. Problem Qualifiers (1) GI bleed: Qualified Code: K92.2 - Gastrointestinal hemorrhage, unspecified gastrointestinal hemorrhage type (2) UTI (urinary tract infection): Qualified Code: N30.00 - Acute cystitis without hematuria (3) Effusion of hip joint: Qualified Code: M25.459 - Effusion of hip joint, unspecified laterality Mari Talamantes Dec 11, 2016 11:17
[2016-12-11 20:00] VITALS: BP 119/83; PULSE 84; RESP 20; TEMP 98.1; O2SAT 97
[2016-12-12] MEDS: azaTHIOprine 50 MG TAB PEG SCH ×2 (05:42→17:57)
[2016-12-12 08:42] VITALS: BP 124/89; PULSE 99; RESP 14; TEMP 98.5; O2SAT 97
[2016-12-12 08:43] VITALS: BP 124/89; PULSE 99; RESP 16; TEMP 98.5; O2SAT 97
[2016-12-12] MEDS: SENNOSIDES SYRUP 8.8 MG/5 ML CUP PEG SCH (09:00)
[2016-12-12] MEDS: COLLAGENASE OINT 30 GM TUBE TOP SCH (09:00)
[2016-12-12] MEDS: JUVEN POWDER 1 PACK G-TUBE SCH ×2 (09:00→21:04)
[2016-12-12] MEDS: FLUoxetine HCL LIQUID 20 MG/5 ML CUP PEG SCH (09:54)
[2016-12-12] MEDS: predniSONE 20 MG TAB PEG SCH (09:55)
[2016-12-12] MEDS: LACTOBACILLUS ACIDOPHILUS TAB PEG SCH ×2 (09:55→21:01)
[2016-12-12] MEDS: LANSOPRAZOLE SOLUTAB 30 MG TAB PEG SCH ×2 (09:55→21:01)
[2016-12-12] MEDS: METOPROLOL TARTRATE 25 MG TAB PEG SCH ×2 (09:55→21:01)
[2016-12-12] MEDS: ENOXAPARIN SODIUM 40 MG/0.4 ML SYRINGE SQ SCH (09:55)
--- NOTE | 2016-12-12 09:55 | HHI.PR ---
Subjective Remarks Follow-up for neuro Behet's syndrome. Patient is crying. Admits to feeling sad. Denies any difficulty breathing. Objective Vitals Vital Signs Date Time Temp Pulse Resp B/P Pulse Ox O2 Delivery O2 Flow Rate FiO2 12/12/16 08:43 98.5 99 16 124/89 97 12/11/16 20:00 98.1 84 20 119/83 97 I/O 12/11/16 12/11/16 12/11/16 12/12/16 12/12/16 12/12/16 07:00 15:00 23:00 07:00 15:00 23:00 Intake Total 1500 ml Balance 1500 ml Tube Feeding 700 ml Tube Irrigant 200 ml Other 600 ml # Voids 2 4 2 # Bowel Movements 2 0 3 Result Diagram: 12/08/16 0712/08/16 07 Objective Remarks GENERAL: Thin patient in no apparent distress. CARDIOVASCULAR: Regular rate and rhythm. RESPIRATORY: Grunting type breathing. CTAB. GASTROINTESTINAL: Abdomen soft, non-tender, nondistended. NEUROLOGICAL: Awake and alert. Nods head to answer questions. PSYCHIATRIC: Crying, emotional. 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 Patient followed by neurology. Aphasic at baseline. Neurology following the patient Continue Imuran, prednisone EEG shows mild to moderate slowing at times of various depending on the epoch, there was no epileptic activity seen Continue PT/OT Palliative care following the patient and is still indicating the patient is making his own decisions, full code and full aggressive measures [place] as needed for pain. Sinus tachycardia: Improved. Lopressor 25 mg twice daily. TSH, free T3, free T4 were normal Melena, bright red blood in stool: Resolved Status post transfusion, emergently transferred to [facility], emergent endoscopy GI evaluated and managed patient with emergent colonoscopy showing small ulcer in the colon Continue Prevacid Hemoglobin stable at 11.4 on 11/04. Sepsis, multiple episodes: Resolved at this time Patient does have rather significant coccyx decubitus wound: Wound culture with pseudo fluorescens/putida, group D enterococcus VRE which is sensitive to Zosyn. Patient did have one urine culture of Daphney parapsilosis, was treated with fluconazole for 10 days. --Patient had episode of diarrhea, C. difficile cultures performed which was negative. --Possible aseptic meningitis Infectious disease consulted and last seen the patient on 10/18/16, at that time it was indicated to observe off antibiotics. 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 Would benefit from long-term steroids. Prerenal azotemia: Improved Continue IV fluids Continue to monitor renal function Hypernatremia: Resolved Continue free water flushes 200 cc every 4 hours Continue IV fluids Monitor sodium level Decreased oral intake and dysphagia on initial presentation Speech therapy following intermittently. S/P barium swallow. Patient with severe dysphagia. GI consulted and PEG tube was placed. Dietary recommending Glucerna 1.5 at 70 mL/hour with Maury twice daily. Coccyx decubitus: Wound care nurse is following the patient for management.Recommends continuing to change dressings with Santyl ointment and cleansing with normal saline only. Apply nickly thick santyl ointment to slightly moistened maxorb II dressing loosely packed in wound bed and cover with bordered gauze, to be changed daily. Specialty bed Ankle ulcer: R lateral malleolus. -Foam boots. Wound care has evaluated; paint with skin prep or betadine and leave open to air. Depression Patient was evaluated by psychiatrist. 11/12: Prozac increased to 20 mg daily. 12/12: Crying on exam today. Apparently family came to visit the patient yesterday. Will hold off on further increase in Prozac at this time. Monitor clinically. Diabetes Glucose well controlled. Discontinued Accu-Cheks and sliding scale insulin DVT Prophylaxis: Lovenox, TEDs/SCDs. Discharge Planning 11/08: CM requested [facility] to evaluate for placement. Problem Qualifiers (1) GI bleed: Qualified Code: K92.2 - Gastrointestinal hemorrhage, unspecified gastrointestinal hemorrhage type (2) UTI (urinary tract infection): Qualified Code: N30.00 - Acute cystitis without hematuria (3) Effusion of hip joint: Qualified Code: M25.459 - Effusion of hip joint, unspecified laterality Mari Talamantes Dec 12, 2016 09:55
[2016-12-12] MEDS: LACTIC ACID (AMMONIUM LACTATE) 12% LOTION 225 GM BTL TOPICAL SCH ×2 (09:56→21:08)
[2016-12-12 20:00] VITALS: BP 112/85; PULSE 75; RESP 18; TEMP 97.9; O2SAT 98
[2016-12-13] MEDS: azaTHIOprine 50 MG TAB PEG SCH ×2 (05:47→17:22)
[2016-12-13 08:00] VITALS: BP 91/69; PULSE 110; RESP 24; TEMP 99.1; O2SAT 98
[2016-12-13] MEDS: COLLAGENASE OINT 30 GM TUBE TOP SCH (09:00)
[2016-12-13] MEDS: METOPROLOL TARTRATE 25 MG TAB PEG SCH ×3 (09:00→21:15)
[2016-12-13] MEDS: SENNOSIDES SYRUP 8.8 MG/5 ML CUP PEG SCH (09:00)
[2016-12-13] MEDS: JUVEN POWDER 1 PACK G-TUBE SCH ×2 (09:00→21:00)
[2016-12-13] MEDS: ENOXAPARIN SODIUM 40 MG/0.4 ML SYRINGE SQ SCH (09:53)
[2016-12-13] MEDS: predniSONE 20 MG TAB PEG SCH (09:54)
[2016-12-13] MEDS: LANSOPRAZOLE SOLUTAB 30 MG TAB PEG SCH ×2 (09:54→21:15)
[2016-12-13] MEDS: FLUoxetine HCL LIQUID 20 MG/5 ML CUP PEG SCH (09:54)
[2016-12-13] MEDS: LACTOBACILLUS ACIDOPHILUS TAB PEG SCH ×2 (09:54→21:15)
[2016-12-13] MEDS: LACTIC ACID (AMMONIUM LACTATE) 12% LOTION 225 GM BTL TOPICAL SCH ×2 (09:55→21:16)
--- NOTE | 2016-12-13 10:35 | HHI.PR ---
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 Nursing staff indicates patient has been more depressed lately after family visited Objective Vitals Vital Signs Date Time Temp Pulse Resp B/P Pulse Ox O2 Delivery O2 Flow Rate FiO2 12/13/16 08:00 99.1 110 24 91/69 98 12/12/16 20:00 97.9 75 18 112/85 98 I/O 12/12/16 12/12/16 12/12/16 12/13/16 12/13/16 12/13/16 07:00 15:00 23:00 07:00 15:00 23:00 Intake Total 2100 ml 752 ml Balance 2100 ml 752 ml Tube Feeding 1300 ml 552 ml Tube Irrigant 200 ml 200 ml Other 600 ml # Voids 2 4 2 # Bowel Movements 3 0 1 Objective Remarks GENERAL: Well-developed, cachectic and contracted. HEENT: Head is normocephalic without any lesions or masses noted. Facial features are symmetric. Eyes: Extraocular muscles are intact. Conjunctivae were clear. NECK: Supple without any masses. Trachea midline no deviation. No JVD, CARDIAC: Regular rhythm, tachycardia noted. S1/S2 are heard. No murmurs gallops or rubs. LUNGS: Clear to auscultation bilaterally. No wheeze, rhonchi or rales. No use of accessory muscles on inspiration or expiration. ABDOMEN: Soft, nontender. Nondistended. Bowel sounds heard in all 4 quadrants. No organomegaly or masses. Negative rebound, negative guarding. PEG tube noted without any excoriation. EXTREMITIES: No edema, pulses are equal bilaterally. No cyanosis or clubbing Procedures 07/19/16 EGD with PEG tube placement 09/27/16 colonoscopy Urinary Catheter: No Vascular Central Line Catheter: No A/P Assessment and Plan Neuro-Behcet, history of frontal lobe CVA, encephalopathy, history of meningitis , chronic No new changes on imaging. Patient was followed by neurology. Aphasic at baseline. Continue Imuran, prednisone EEG shows mild to moderate slowing at times of various depending on the epoch, there was no epileptic activity seen Continue PT/OT Palliative care following the patient and is still indicating the patient is making his own decisions, full code and full aggressive measures Sinus tachycardia. Stable Lopressor 25 mg twice daily. TSH, free T3, free T4 colon were normal Melena, bright red blood in stool, resolved Status post transfusion, emergency transferred to Main hospital, emergent endoscopy GI evaluated and managed patient with emergent colonoscopy showing small ulcer in the colon Continue Prevacid Sepsis, multiple episodes, resolved at this time Patient does have rather significant coccyx decubitus wound: Wound culture with pseudo fluorescens/putida, group D enterococcus VRE which is sensitive to Zosyn. Patient did have one urine culture of Daphney parapsilosis, was treated with fluconazole for 10 days. --Patient had episode of diarrhea, C. difficile cultures performed which was negative. --Possible aseptic meningitis Infectious disease consulted and last seen the patient on 10/18/16, at that time it was indicated to observe off antibiotics. 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 Would benefit from long-term steroids Prerenal azotemia, resolved Continue monitor renal function periodically Hypernatremia, Continue free water flushes 200 cc every 4 hours Monitor sodium level Decreased oral intake and dysphagia on initial presentation Speech therapy following intermittently. S/P barium swallow. Patient with severe dysphagia. GI was consulted and PEG tube was placed. Dietary recommending Glucerna 1.5 at 70 mL's an hour with Maury twice daily, Continue continuous tube feeding until patient appears to be more nutritionally stable and then will evaluate for bolus feeding Coccyx decubitus. Wound care nurse is following the patient for management Patient with specialty bed Mood disorder, depression Patient was evaluated by psychiatrist. Psychiatrist recommended Prozac Diabetes Glucose well controlled, DVT Prophylaxis: Lovenox, TEDs/SCDs. Records are reviewed, no change in clinical status. No change in treatment plan Discharge Planning Case management for discharge planning Ede Richardson Dec 13, 2016 10:35
[2016-12-13 20:00] VITALS: BP 102/79; PULSE 89; RESP 20; TEMP 97.6; O2SAT 99
[2016-12-13] MEDS: HYOSCYAMINE SOLN 0.125 MG/ML 15 ML BTL PEG PRN (21:15)
[2016-12-13] MEDS: PADIMATE (CHAPSTICK) 4.5 GM TUBE TOPICAL PRN (21:15)
[2016-12-14] MEDS: azaTHIOprine 50 MG TAB PEG SCH ×2 (06:05→18:01)
[2016-12-14 08:41] VITALS: BP 122/91; PULSE 109; RESP 19; TEMP 97.6; O2SAT 93
[2016-12-14] MEDS: FLUoxetine HCL LIQUID 20 MG/5 ML CUP PEG SCH (09:40)
[2016-12-14] MEDS: SENNOSIDES SYRUP 8.8 MG/5 ML CUP PEG SCH (09:40)
[2016-12-14] MEDS: METOPROLOL TARTRATE 25 MG TAB PEG SCH ×2 (09:40→21:00)
[2016-12-14] MEDS: LANSOPRAZOLE SOLUTAB 30 MG TAB PEG SCH ×2 (09:40→22:02)
[2016-12-14] MEDS: LACTOBACILLUS ACIDOPHILUS TAB PEG SCH ×2 (09:40→22:02)
[2016-12-14] MEDS: ENOXAPARIN SODIUM 40 MG/0.4 ML SYRINGE SQ SCH (09:41)
[2016-12-14] MEDS: predniSONE 20 MG TAB PEG SCH (09:41)
[2016-12-14] MEDS: COLLAGENASE OINT 30 GM TUBE TOP SCH (09:41)
[2016-12-14] MEDS: JUVEN POWDER 1 PACK G-TUBE SCH ×2 (09:42→22:02)
[2016-12-14] MEDS: LACTIC ACID (AMMONIUM LACTATE) 12% LOTION 225 GM BTL TOPICAL SCH ×2 (09:43→22:02)
--- NOTE | 2016-12-14 14:30 | HHI.PR ---
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 Patient lying in bed, appears to be comfortable. Denies any new complaints. Objective Vitals Vital Signs Date Time Temp Pulse Resp B/P Pulse Ox O2 Delivery O2 Flow Rate FiO2 12/14/16 08:41 97.6 109 19 122/91 93 12/13/16 20:00 97.6 89 20 102/79 99 I/O 12/13/16 12/13/16 12/13/16 12/14/16 12/14/16 12/14/16 07:00 15:00 23:00 07:00 15:00 23:00 Intake Total 752 ml 0 ml 1770 ml 1140 ml Output Total 350 ml 550 ml 450 ml Balance 752 ml -350 ml 1220 ml 690 ml Intake Oral 0 ml 0 ml Tube Feeding 552 ml 770 ml 740 ml Tube Irrigant 200 ml 400 ml 400 ml Other 600 ml Output Urine Total 350 ml 550 ml 450 ml # Voids 2 # Bowel Movements 1 3 0 0 Objective Remarks GENERAL: Well-developed, cachectic and contracted. HEENT: Head is normocephalic without any lesions or masses noted. Facial features are symmetric. Eyes: Extraocular muscles are intact. Conjunctivae were clear. NECK: Supple without any masses. Trachea midline no deviation. No JVD, CARDIAC: Regular rhythm, tachycardia noted. S1/S2 are heard. No murmurs gallops or rubs. LUNGS: Clear to auscultation bilaterally. No wheeze, rhonchi or rales. No use of accessory muscles on inspiration or expiration. ABDOMEN: Soft, nontender. Nondistended. Bowel sounds heard in all 4 quadrants. No organomegaly or masses. Negative rebound, negative guarding. PEG tube noted without any excoriation. EXTREMITIES: No edema, pulses are equal bilaterally. No cyanosis or clubbing Procedures 07/19/16 EGD with PEG tube placement 09/27/16 colonoscopy Urinary Catheter: No Vascular Central Line Catheter: No A/P Assessment and Plan Neuro-Behcet, history of frontal lobe CVA, encephalopathy, history of meningitis , chronic No new changes on imaging. Patient was followed by neurology. Aphasic at baseline. Continue Imuran, prednisone EEG shows mild to moderate slowing at times of various depending on the epoch, there was no epileptic activity seen Continue PT/OT Palliative care following the patient and is still indicating the patient is making his own decisions, full code and full aggressive measures Sinus tachycardia. Stable Lopressor 25 mg twice daily. TSH, free T3, free T4 colon were normal Melena, bright red blood in stool, resolved Status post transfusion, emergency transferred to [facility] hospital, emergent endoscopy GI evaluated and managed patient with emergent colonoscopy showing small ulcer in the colon Continue Prevacid Sepsis, multiple episodes, resolved at this time Patient does have rather significant coccyx decubitus wound: Wound culture with pseudo fluorescens/putida, group D enterococcus VRE which is sensitive to Zosyn. Patient did have one urine culture of Daphney parapsilosis, was treated with fluconazole for 10 days. --Patient had episode of diarrhea, C. difficile cultures performed which was negative. --Possible aseptic meningitis Infectious disease consulted and last seen the patient on 10/18/16, at that time it was indicated to observe off antibiotics. 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 Would benefit from long-term steroids Prerenal azotemia, resolved Continue monitor renal function periodically Hypernatremia, Continue free water flushes 200 cc every 4 hours Monitor sodium level Decreased oral intake and dysphagia on initial presentation Speech therapy following intermittently. S/P barium swallow. Patient with severe dysphagia. GI was consulted and PEG tube was placed. Dietary recommending Glucerna 1.5 at 70 mL's an hour with Maury twice daily, Continue continuous tube feeding until patient appears to be more nutritionally stable and then will evaluate for bolus feeding Coccyx decubitus. Wound care nurse is following the patient for management Patient with specialty bed Mood disorder, depression Patient was evaluated by psychiatrist. Psychiatrist recommended Prozac Diabetes Glucose well controlled, DVT Prophylaxis: Lovenox, TEDs/SCDs. Records are reviewed, no change in clinical status. No change in treatment plan Discharge Planning Case management for discharge planning Ede Richardson Dec 14, 2016 14:30
[2016-12-14 20:00] VITALS: BP 98/79; PULSE 89; RESP 20; TEMP 98.2; O2SAT 97
[2016-12-15] MEDS: azaTHIOprine 50 MG TAB PEG SCH ×2 (06:14→17:23)
[2016-12-15 09:00] VITALS: BP 109/73; PULSE 105; RESP 16; TEMP 97.4; O2SAT 95
[2016-12-15] MEDS: JUVEN POWDER 1 PACK G-TUBE SCH ×2 (09:00→21:17)
[2016-12-15] MEDS: METOPROLOL TARTRATE 25 MG TAB PEG SCH ×2 (09:00→21:17)
[2016-12-15] MEDS: COLLAGENASE OINT 30 GM TUBE TOP SCH (09:00)
[2016-12-15] MEDS: LACTOBACILLUS ACIDOPHILUS TAB PEG SCH ×2 (09:51→21:17)
[2016-12-15] MEDS: SENNOSIDES SYRUP 8.8 MG/5 ML CUP PEG SCH (09:51)
[2016-12-15] MEDS: ENOXAPARIN SODIUM 40 MG/0.4 ML SYRINGE SQ SCH (09:51)
[2016-12-15] MEDS: FLUoxetine HCL LIQUID 20 MG/5 ML CUP PEG SCH (09:51)
[2016-12-15] MEDS: predniSONE 20 MG TAB PEG SCH (09:52)
[2016-12-15] MEDS: LANSOPRAZOLE SOLUTAB 30 MG TAB PEG SCH ×2 (09:52→21:17)
[2016-12-15] MEDS: LACTIC ACID (AMMONIUM LACTATE) 12% LOTION 225 GM BTL TOPICAL SCH ×2 (09:55→21:18)
--- NOTE | 2016-12-15 10:58 | HHI.PR ---
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 Patient lying in bed. Does not indicate any new complaints. Nursing staff states that they are holding the metoprolol today due to low blood pressure Objective Vitals Vital Signs Date Time Temp Pulse Resp B/P Pulse Ox O2 Delivery O2 Flow Rate FiO2 12/15/16 09:00 97.4 105 16 109/73 95 12/14/16 20:00 98.2 89 20 98/79 97 I/O 12/14/16 12/14/16 12/14/16 12/15/16 12/15/16 12/15/16 07:00 15:00 23:00 07:00 15:00 23:00 Intake Total 1140 ml 0 ml 0 ml Output Total 450 ml 450 ml Balance 690 ml -450 ml 0 ml Intake Oral 0 ml 0 ml 0 ml Tube Feeding 740 ml Tube Irrigant 400 ml Output Urine Total 450 ml 450 ml # Voids 2 # Bowel Movements 0 1 0 Objective Remarks GENERAL: Well-developed, cachectic and contracted. HEENT: Head is normocephalic without any lesions or masses noted. Facial features are symmetric. Eyes: Extraocular muscles are intact. Conjunctivae were clear. NECK: Supple without any masses. Trachea midline no deviation. No JVD, CARDIAC: Regular rhythm, tachycardia noted. S1/S2 are heard. No murmurs gallops or rubs. LUNGS: Clear to auscultation bilaterally. No wheeze, rhonchi or rales. No use of accessory muscles on inspiration or expiration. ABDOMEN: Soft, nontender. Nondistended. Bowel sounds heard in all 4 quadrants. No organomegaly or masses. Negative rebound, negative guarding. PEG tube noted without any excoriation. EXTREMITIES: No edema, pulses are equal bilaterally. No cyanosis or clubbing Procedures 07/19/16 EGD with PEG tube placement 09/27/16 colonoscopy Urinary Catheter: No Vascular Central Line Catheter: No A/P Assessment and Plan Neuro-Behcet, history of frontal lobe CVA, encephalopathy, history of meningitis , chronic No new changes on imaging. Patient was followed by neurology. Aphasic at baseline. Continue Imuran, prednisone EEG shows mild to moderate slowing at times of various depending on the epoch, there was no epileptic activity seen Continue PT/OT Palliative care following the patient and is still indicating the patient is making his own decisions, full code and full aggressive measures Sinus tachycardia. Stable Lopressor 25 mg twice daily. Held intermittently due to low blood pressure TSH, free T3, free T4 colon were normal Melena, bright red blood in stool, resolved Status post transfusion, emergency transferred to [facility] hospital, emergent endoscopy GI evaluated and managed patient with emergent colonoscopy showing small ulcer in the colon Continue Prevacid Sepsis, multiple episodes, resolved at this time Patient does have rather significant coccyx decubitus wound: Wound culture with pseudo fluorescens/putida, group D enterococcus VRE which is sensitive to Zosyn. Patient did have one urine culture of Daphney parapsilosis, was treated with fluconazole for 10 days. --Patient had episode of diarrhea, C. difficile cultures performed which was negative. --Possible aseptic meningitis Infectious disease consulted and last seen the patient on 10/18/16, at that time it was indicated to observe off antibiotics. 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 Would benefit from long-term steroids Prerenal azotemia, resolved Continue monitor renal function periodically Hypernatremia, Continue free water flushes 200 cc every 4 hours Monitor sodium level Decreased oral intake and dysphagia on initial presentation Speech therapy following intermittently. S/P barium swallow. Patient with severe dysphagia. GI was consulted and PEG tube was placed. Dietary recommending Glucerna 1.5 at 70 mL's an hour with Maury twice daily, Continue continuous tube feeding until patient appears to be more nutritionally stable and then will evaluate for bolus feeding Coccyx decubitus. Wound care nurse is following the patient for management Patient with specialty bed Mood disorder, depression Patient was evaluated by psychiatrist. Psychiatrist recommended Prozac Diabetes Glucose well controlled, DVT Prophylaxis: Lovenox, TEDs/SCDs. Records are reviewed, no change in clinical status. No change in treatment plan Discharge Planning Case management for discharge planning Ede Richardson Dec 15, 2016 10:58
[2016-12-15 20:00] VITALS: BP 113/84; PULSE 90; RESP 21; TEMP 98.5; O2SAT 100
[2016-12-16] MEDS: azaTHIOprine 50 MG TAB PEG SCH ×2 (05:43→13:59)
[2016-12-16 08:00] VITALS: BP 108/70; PULSE 90; RESP 20; TEMP 99.6; O2SAT 95
[2016-12-16] MEDS: COLLAGENASE OINT 30 GM TUBE TOP SCH (09:00)
[2016-12-16] MEDS: JUVEN POWDER 1 PACK G-TUBE SCH ×2 (09:00→21:00)
[2016-12-16] MEDS: LACTIC ACID (AMMONIUM LACTATE) 12% LOTION 225 GM BTL TOPICAL SCH ×2 (09:00→21:57)
[2016-12-16] MEDS: METOPROLOL TARTRATE 25 MG TAB PEG SCH ×2 (09:00→21:56)
[2016-12-16] MEDS: predniSONE 20 MG TAB PEG SCH (09:34)
[2016-12-16] MEDS: LACTOBACILLUS ACIDOPHILUS TAB PEG SCH ×2 (09:35→21:56)
[2016-12-16] MEDS: LANSOPRAZOLE SOLUTAB 30 MG TAB PEG SCH ×2 (09:35→21:56)
[2016-12-16] MEDS: ENOXAPARIN SODIUM 40 MG/0.4 ML SYRINGE SQ SCH (09:35)
[2016-12-16] MEDS: SENNOSIDES SYRUP 8.8 MG/5 ML CUP PEG SCH (09:35)
[2016-12-16] MEDS: FLUoxetine HCL LIQUID 20 MG/5 ML CUP PEG SCH (09:35)
--- NOTE | 2016-12-16 11:21 | HHI.PR ---
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 Patient lying in bed. No indication complaints. Nursing staff indicates he has been very emotional lately. Objective Vitals Vital Signs Date Time Temp Pulse Resp B/P Pulse Ox O2 Delivery O2 Flow Rate FiO2 12/16/16 08:00 99.6 90 20 108/70 95 12/15/16 20:00 98.5 90 21 113/84 100 I/O 12/15/16 12/15/16 12/15/16 12/16/16 12/16/16 12/16/16 07:00 15:00 23:00 07:00 15:00 23:00 Intake Total 70 ml 660 ml 310 ml 1440 ml Output Total 400 ml 550 ml 150 ml Balance 70 ml 260 ml -240 ml 1290 ml Intake Oral 0 ml Tube Feeding 70 ml 560 ml 210 ml 840 ml Tube Irrigant 100 ml 100 ml 600 ml Output Urine Total 400 ml 550 ml 150 ml # Voids 2 # Bowel Movements 0 2 2 Objective Remarks GENERAL: Well-developed, cachectic and contracted. HEENT: Head is normocephalic without any lesions or masses noted. Facial features are symmetric. Eyes: Extraocular muscles are intact. Conjunctivae were clear. NECK: Supple without any masses. Trachea midline no deviation. No JVD, CARDIAC: Regular rhythm, tachycardia noted. S1/S2 are heard. No murmurs gallops or rubs. LUNGS: Clear to auscultation bilaterally. No wheeze, rhonchi or rales. No use of accessory muscles on inspiration or expiration. ABDOMEN: Soft, nontender. Nondistended. Bowel sounds heard in all 4 quadrants. No organomegaly or masses. Negative rebound, negative guarding. PEG tube noted without any excoriation. EXTREMITIES: No edema, pulses are equal bilaterally. No cyanosis or clubbing Procedures 07/19/16 EGD with PEG tube placement 09/27/16 colonoscopy Urinary Catheter: No Vascular Central Line Catheter: No A/P Assessment and Plan Neuro-Behcet, history of frontal lobe CVA, encephalopathy, history of meningitis , chronic No new changes on imaging. Patient was followed by neurology. Aphasic at baseline. Continue Imuran, prednisone EEG shows mild to moderate slowing at times of various depending on the epoch, there was no epileptic activity seen Continue PT/OT Palliative care following the patient and is still indicating the patient is making his own decisions, full code and full aggressive measures Sinus tachycardia. Stable Lopressor 25 mg twice daily. Held intermittently due to low blood pressure TSH, free T3, free T4 colon were normal Melena, bright red blood in stool, resolved Status post transfusion, emergency transferred to [facility] hospital, emergent endoscopy GI evaluated and managed patient with emergent colonoscopy showing small ulcer in the colon Continue Prevacid Sepsis, multiple episodes, resolved at this time Patient does have rather significant coccyx decubitus wound: Wound culture with pseudo fluorescens/putida, group D enterococcus VRE which is sensitive to Zosyn. Patient did have one urine culture of Daphney parapsilosis, was treated with fluconazole for 10 days. --Patient had episode of diarrhea, C. difficile cultures performed which was negative. --Possible aseptic meningitis Infectious disease consulted and last seen the patient on 10/18/16, at that time it was indicated to observe off antibiotics. 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 Would benefit from long-term steroids Prerenal azotemia, resolved Continue monitor renal function periodically Hypernatremia, Continue free water flushes 200 cc every 4 hours Monitor sodium level Decreased oral intake and dysphagia on initial presentation Speech therapy following intermittently. S/P barium swallow. Patient with severe dysphagia. GI was consulted and PEG tube was placed. Dietary recommending Glucerna 1.5 at 70 mL's an hour with Maury twice daily, Continue continuous tube feeding until patient appears to be more nutritionally stable and then will evaluate for bolus feeding Coccyx decubitus. Wound care nurse is following the patient for management Patient with specialty bed Mood disorder, depression Patient was evaluated by psychiatrist. Psychiatrist recommended Prozac Diabetes Glucose well controlled, DVT Prophylaxis: Lovenox, TEDs/SCDs. Records are reviewed, no change in clinical status. No change in treatment plan Discharge Planning Case management for discharge planning Ede Richardson Dec 16, 2016 11:20
--- NOTE | 2016-12-16 18:48 | PD.WCN.NOT ---
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 Peeled back adhesive foam dressing in place to reveal wound to sacrococcygeal area. Dressing already changed today with Santyl to wound bed and loosely packed Maxorb II.Sacrococcygeal wound bed noted with 100% coverage beefy red granulation tissue.Wound noted with minimal serous drainage. Wound appears improved from previous assessment. Wound measurements are as follows: 1.8cm x 1.2cm x 0.8cm. Undermining noted from 9 to 12 o'clock 0.7 cm at the deepest. New epithelial tissue noted at wound margins.Periwound assessed with scar tissue but is otherwise unremarkable. Repacked wound loosely with Maxorb II.Reapplied adhesive foam dressing in place. Peeled back bordered gauze dressing to reveal open wound over R lateral malleolus. Wound presents with 50% yellow adherent slough and 50% pink tissue.Presence of slough in wound over rob prominence indicates an unstageable pressure injury.Wound has minimal sero-sanguinous drainage. Wound measurements are as follows 1.9 x 1.5 x slough.Reapplied bordered gauze dressing back in place. Wound care will continue to follow patient weekly. Communicated with: SHIRLENE Brown [address] [place] [address] Recommendation: Recommend to continue dressing changes with Santyl and Maxorb II to sacral/ coccyx area, cleansing wound with normal saline only. Also continue Santyl and adhesive foam dressing to R lateral malleolus wound. Arleen Gibbs [facility] Dec 16, 2016 18:48
[2016-12-16 20:00] VITALS: BP 106/88; PULSE 89; RESP 22; TEMP 97.4; O2SAT 98
[2016-12-17] MEDS: azaTHIOprine 50 MG TAB PEG SCH ×2 (05:31→17:37)
[2016-12-17 07:17] LABS: AUTOMATED NEUTROPHIL # 7.9 TH/MM3 (1.8-7.7); BASOPHIL # 0.1 TH/MM3 (0-0.2); BASOPHIL % 1.3 % (0.0-2.0); EOSINOPHIL # 0.1 TH/MM3 (0-0.4); EOSINOPHIL % 0.9 % (0.0-4.0); HEMATOCRIT 39.6 % (39.0-51.0); HEMOGLOBIN 12.8 GM/DL (13.0-17.0); LYMPH % 17.3 % (9.0-44.0); LYMPHOCYTE # 1.8 TH/MM3 (1.0-4.8); MEAN CELL VOLUME 91.8 FL (80.0-100.0); MEAN CORPUSCULAR HEMOGLOBIN 29.7 PG (27.0-34.0); MEAN CORPUSCULAR HGB CONC 32.4 % (32.0-36.0); MEAN PLATELET VOLUME 10.2 FL (7.0-11.0); MONO % 5.6 % (0.0-8.0); MONOCYTE # 0.6 TH/MM3 (0-0.9); NEUT % 74.9 % (16.0-70.0); PLATELET COUNT 253 TH/MM3 (150-450); RED BLOOD COUNT 4.31 MIL/MM3 (4.50-5.90); RED CELL DISTRIBUTION WIDTH 15.8 % (11.6-17.2); WHITE BLOOD COUNT 10.5 TH/MM3 (4.0-11.0)
[2016-12-17 07:29] LABS: BICARBONATE 29.6 MEQ/L (21.0-32.0); CALCIUM 9.3 MG/DL (8.5-10.1); MAGNESIUM 2.6 MG/DL (1.5-2.5)
[2016-12-17 07:32] LABS: CREATININE 0.61 MG/DL (0.60-1.30)
[2016-12-17 08:00] VITALS: BP 96/71; PULSE 96; RESP 19; TEMP 97.8; O2SAT 99
[2016-12-17] MEDS: LACTOBACILLUS ACIDOPHILUS TAB PEG SCH ×2 (08:05→21:11)
[2016-12-17] MEDS: SENNOSIDES SYRUP 8.8 MG/5 ML CUP PEG SCH (08:05)
[2016-12-17] MEDS: predniSONE 20 MG TAB PEG SCH (08:06)
[2016-12-17] MEDS: LACTIC ACID (AMMONIUM LACTATE) 12% LOTION 225 GM BTL TOPICAL SCH ×2 (08:06→21:13)
[2016-12-17] MEDS: LANSOPRAZOLE SOLUTAB 30 MG TAB PEG SCH ×2 (08:06→21:11)
[2016-12-17] MEDS: ENOXAPARIN SODIUM 40 MG/0.4 ML SYRINGE SQ SCH (08:06)
[2016-12-17] MEDS: FLUoxetine HCL LIQUID 20 MG/5 ML CUP PEG SCH (08:06)
[2016-12-17] MEDS: JUVEN POWDER 1 PACK G-TUBE SCH ×2 (08:06→21:00)
[2016-12-17] MEDS: COLLAGENASE OINT 30 GM TUBE TOP SCH (08:06)
[2016-12-17] MEDS: METOPROLOL TARTRATE 25 MG TAB PEG SCH ×2 (08:14→21:12)
--- NOTE | 2016-12-17 11:51 | HHI.PR ---
Subjective Remarks Patient seen and examined today for follow-up on neuro-Behcet's. Patient appears to be doing better today. He is awake, responding nicely. Denies any new complaints. Objective Vitals Vital Signs Date Time Temp Pulse Resp B/P Pulse Ox O2 Delivery O2 Flow Rate FiO2 12/17/16 08:00 97.8 96 19 96/71 99 12/16/16 20:00 97.4 89 22 106/88 98 I/O 12/16/16 12/16/16 12/16/16 12/17/16 12/17/16 12/17/16 07:00 15:00 23:00 07:00 15:00 23:00 Intake Total 1440 ml 700 ml Output Total 150 ml 701 ml 250 ml Balance 1290 ml -701 ml 450 ml Tube Feeding 840 ml 700 ml Tube Irrigant 600 ml Output Urine Total 150 ml 700 ml 250 ml Stool Total 1 ml # Bowel Movements 2 1 Result Diagram: 12/17/16 0711 12/17/16 0711 Objective Remarks GENERAL: Well-developed, cachectic and contracted. HEENT: Head is normocephalic without any lesions or masses noted. Facial features are symmetric. Eyes: Extraocular muscles are intact. Conjunctivae were clear. NECK: Supple without any masses. Trachea midline no deviation. No JVD, CARDIAC: Regular rhythm, tachycardia noted. S1/S2 are heard. No murmurs gallops or rubs. LUNGS: Clear to auscultation bilaterally. No wheeze, rhonchi or rales. No use of accessory muscles on inspiration or expiration. ABDOMEN: Soft, nontender. Nondistended. Bowel sounds heard in all 4 quadrants. No organomegaly or masses. Negative rebound, negative guarding. PEG tube noted without any excoriation. EXTREMITIES: No edema, pulses are equal bilaterally. No cyanosis or clubbing Procedures 07/19/16 EGD with PEG tube placement 09/27/16 colonoscopy Urinary Catheter: No Vascular Central Line Catheter: No A/P Assessment and Plan Neuro-Behcet, history of frontal lobe CVA, encephalopathy, history of meningitis , chronic No new changes on imaging. Patient was followed by neurology. Aphasic at baseline. Continue Imuran, prednisone EEG shows mild to moderate slowing at times of various depending on the epoch, there was no epileptic activity seen Continue PT/OT Palliative care following the patient and is still indicating the patient is making his own decisions, full code and full aggressive measures Sinus tachycardia. Stable Lopressor 25 mg twice daily. Held intermittently due to low blood pressure TSH, free T3, free T4 colon were normal Melena, bright red blood in stool, resolved Status post transfusion, emergency transferred to [facility] hospital, emergent endoscopy GI evaluated and managed patient with emergent colonoscopy showing small ulcer in the colon Continue Prevacid Sepsis, multiple episodes, resolved at this time Patient does have rather significant coccyx decubitus wound: Wound culture with pseudo fluorescens/putida, group D enterococcus VRE which is sensitive to Zosyn. Patient did have one urine culture of Daphney parapsilosis, was treated with fluconazole for 10 days. --Patient had episode of diarrhea, C. difficile cultures performed which was negative. --Possible aseptic meningitis Infectious disease consulted and last seen the patient on 10/18/16, at that time it was indicated to observe off antibiotics. 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 Would benefit from long-term steroids Prerenal azotemia, resolved Continue monitor renal function periodically Hypernatremia, Continue free water flushes 200 cc every 4 hours Monitor sodium level Decreased oral intake and dysphagia on initial presentation Speech therapy following intermittently. S/P barium swallow. Patient with severe dysphagia. GI was consulted and PEG tube was placed. Dietary recommending Glucerna 1.5 at 70 mL's an hour with Maury twice daily, Continue continuous tube feeding until patient appears to be more nutritionally stable and then will evaluate for bolus feeding Coccyx decubitus. Wound care nurse is following the patient for management Patient with specialty bed Mood disorder, depression Patient was evaluated by psychiatrist. Psychiatrist recommended Prozac Diabetes Glucose well controlled, DVT Prophylaxis: Lovenox, TEDs/SCDs. Records are reviewed, no change in clinical status. No change in treatment plan Discharge Planning Case management for discharge planning Ede Richardson Dec 17, 2016 11:51
[2016-12-17 20:00] VITALS: BP 110/82; PULSE 85; RESP 16; TEMP 96.2; O2SAT 99
[2016-12-18] MEDS: azaTHIOprine 50 MG TAB PEG SCH ×2 (05:50→07:25)
[2016-12-18] MEDS: predniSONE 20 MG TAB PEG SCH (07:25)
[2016-12-18] MEDS: ENOXAPARIN SODIUM 40 MG/0.4 ML SYRINGE SQ SCH (07:25)
[2016-12-18] MEDS: LACTOBACILLUS ACIDOPHILUS TAB PEG SCH ×2 (07:25→21:00)
[2016-12-18] MEDS: SENNOSIDES SYRUP 8.8 MG/5 ML CUP PEG SCH (07:25)
[2016-12-18] MEDS: LANSOPRAZOLE SOLUTAB 30 MG TAB PEG SCH ×2 (07:25→21:00)
[2016-12-18] MEDS: FLUoxetine HCL LIQUID 20 MG/5 ML CUP PEG SCH (07:25)
[2016-12-18] MEDS: JUVEN POWDER 1 PACK G-TUBE SCH ×2 (07:29→21:00)
[2016-12-18] MEDS: METOPROLOL TARTRATE 25 MG TAB PEG SCH ×2 (07:29→21:00)
[2016-12-18] MEDS: LACTIC ACID (AMMONIUM LACTATE) 12% LOTION 225 GM BTL TOPICAL SCH ×2 (07:37→21:00)
[2016-12-18] MEDS: COLLAGENASE OINT 30 GM TUBE TOP SCH (07:37)
[2016-12-18 08:00] VITALS: BP 101/77; PULSE 102; RESP 23; TEMP 97; O2SAT 95
--- NOTE | 2016-12-18 09:46 | HHI.PR ---
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 Patient lying in bed. He is indicating his not having a good day today. When trying to elicit answers about multiple problems he keeps shaking his head no reference to pain, needs to be adjusted, needs help. Patient does have episodes of significant depression due to his underlying condition. Objective Vitals Vital Signs Date Time Temp Pulse Resp B/P Pulse Ox O2 Delivery O2 Flow Rate FiO2 12/18/16 08:00 97.0 102 23 101/77 95 12/17/16 20:00 96.2 85 16 110/82 99 I/O 12/17/16 12/17/16 12/17/16 12/18/16 12/18/16 12/18/16 07:00 15:00 23:00 07:00 15:00 23:00 Intake Total 700 ml 840 ml Output Total 250 ml 700 ml 250 ml Balance 450 ml 140 ml -250 ml Intake Oral 0 ml Tube Feeding 700 ml 840 ml Output Urine Total 250 ml 700 ml 250 ml # Bowel Movements 1 2 0 Result Diagram: 12/17/16 0711 12/17/16 0711 Objective Remarks GENERAL: Well-developed, cachectic and contracted. HEENT: Head is normocephalic without any lesions or masses noted. Facial features are symmetric. Eyes: Extraocular muscles are intact. Conjunctivae were clear. NECK: Supple without any masses. Trachea midline no deviation. No JVD, CARDIAC: Regular rhythm, tachycardia noted. S1/S2 are heard. No murmurs gallops or rubs. LUNGS: Clear to auscultation bilaterally. No wheeze, rhonchi or rales. No use of accessory muscles on inspiration or expiration. ABDOMEN: Soft, nontender. Nondistended. Bowel sounds heard in all 4 quadrants. No organomegaly or masses. Negative rebound, negative guarding. PEG tube noted without any excoriation. EXTREMITIES: No edema, pulses are equal bilaterally. No cyanosis or clubbing Procedures 07/19/16 EGD with PEG tube placement 09/27/16 colonoscopy Urinary Catheter: No Vascular Central Line Catheter: No A/P Assessment and Plan Neuro-Behcet, history of frontal lobe CVA, encephalopathy, history of meningitis , chronic No new changes on imaging. Patient was followed by neurology. Aphasic at baseline. Continue Imuran, prednisone EEG shows mild to moderate slowing at times of various depending on the epoch, there was no epileptic activity seen Continue PT/OT Palliative care following the patient and is still indicating the patient is making his own decisions, full code and full aggressive measures Sinus tachycardia. Stable Lopressor 25 mg twice daily. Held intermittently due to low blood pressure TSH, free T3, free T4 colon were normal Melena, bright red blood in stool, resolved Status post transfusion, emergency transferred to [facility] hospital, emergent endoscopy GI evaluated and managed patient with emergent colonoscopy showing small ulcer in the colon Continue Prevacid Sepsis, multiple episodes, resolved at this time Patient does have rather significant coccyx decubitus wound: Wound culture with pseudo fluorescens/putida, group D enterococcus VRE which is sensitive to Zosyn. Patient did have one urine culture of Daphney parapsilosis, was treated with fluconazole for 10 days. --Patient had episode of diarrhea, C. difficile cultures performed which was negative. --Possible aseptic meningitis Infectious disease consulted and last seen the patient on 10/18/16, at that time it was indicated to observe off antibiotics. 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 Would benefit from long-term steroids Prerenal azotemia, resolved Continue monitor renal function periodically Hypernatremia, Increase free water flushes 250 cc every 4 hours Monitor sodium level, BMP ordered for 12/20/16 Decreased oral intake and dysphagia on initial presentation Speech therapy following intermittently. S/P barium swallow. Patient with severe dysphagia. GI was consulted and PEG tube was placed. Dietary recommending Glucerna 1.5 at 70 mL's an hour with Maury twice daily, Continue continuous tube feeding until patient appears to be more nutritionally stable and then will evaluate for bolus feeding Coccyx decubitus. Wound care nurse is following the patient for management Patient with specialty bed Mood disorder, depression Patient was evaluated by psychiatrist. Psychiatrist recommended Prozac Diabetes Glucose well controlled, DVT Prophylaxis: Lovenox, TEDs/SCDs. Discharge Planning Case management for discharge planning Ede Richardson Dec 18, 2016 09:46
[2016-12-18 20:00] VITALS: BP 106/87; PULSE 81; RESP 14; TEMP 96.6; O2SAT 97
[2016-12-19] MEDS: azaTHIOprine 50 MG TAB PEG SCH ×2 (06:06→08:52)
[2016-12-19 08:00] VITALS: BP 118/74; PULSE 80; RESP 18; O2SAT 96
[2016-12-19] MEDS: ENOXAPARIN SODIUM 40 MG/0.4 ML SYRINGE SQ SCH (08:51)
[2016-12-19] MEDS: SENNOSIDES SYRUP 8.8 MG/5 ML CUP PEG SCH (08:51)
[2016-12-19] MEDS: FLUoxetine HCL LIQUID 20 MG/5 ML CUP PEG SCH (08:52)
[2016-12-19] MEDS: LACTOBACILLUS ACIDOPHILUS TAB PEG SCH ×2 (08:52→20:44)
[2016-12-19] MEDS: METOPROLOL TARTRATE 25 MG TAB PEG SCH ×2 (08:52→20:44)
[2016-12-19] MEDS: predniSONE 20 MG TAB PEG SCH (08:52)
[2016-12-19] MEDS: COLLAGENASE OINT 30 GM TUBE TOP SCH (08:53)
[2016-12-19] MEDS: JUVEN POWDER 1 PACK G-TUBE SCH ×2 (08:53→20:53)
[2016-12-19] MEDS: LACTIC ACID (AMMONIUM LACTATE) 12% LOTION 225 GM BTL TOPICAL SCH ×2 (08:53→20:54)
[2016-12-19] MEDS: LANSOPRAZOLE SOLUTAB 30 MG TAB PEG SCH ×2 (08:53→20:44)
--- NOTE | 2016-12-19 11:30 | HHI.PR ---
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 Patient lying in bed carefully. Difficult to communicate with him, however he does appear to be more depressed. Nursing staff indicates that whenever family comes by that patient gets severely depressed for several days afterwards. Objective Vitals Vital Signs Date Time Temp Pulse Resp B/P Pulse Ox O2 Delivery O2 Flow Rate FiO2 12/18/16 20:00 96.6 81 14 106/87 97 I/O 12/18/16 12/18/16 12/18/16 12/19/16 12/19/16 12/19/16 07:00 15:00 23:00 07:00 15:00 23:00 Intake Total 0 ml 840 ml Output Total 250 ml 200 ml 300 ml 250 ml Balance -250 ml -200 ml -300 ml 590 ml Intake Oral 0 ml Tube Feeding 840 ml Output Urine Total 250 ml 200 ml 300 ml 250 ml # Bowel Movements 0 2 1 0 Result Diagram: 12/17/1611 12/17/16 0711 Objective Remarks GENERAL: Well-developed, cachectic and contracted. HEENT: Head is normocephalic without any lesions or masses noted. Facial features are symmetric. Eyes: Extraocular muscles are intact. Conjunctivae were clear. NECK: Supple without any masses. Trachea midline no deviation. No JVD, CARDIAC: Regular rhythm, tachycardia noted. S1/S2 are heard. No murmurs gallops or rubs. LUNGS: Clear to auscultation bilaterally. No wheeze, rhonchi or rales. No use of accessory muscles on inspiration or expiration. ABDOMEN: Soft, nontender. Nondistended. Bowel sounds heard in all 4 quadrants. No organomegaly or masses. Negative rebound, negative guarding. PEG tube noted without any excoriation. EXTREMITIES: No edema, pulses are equal bilaterally. No cyanosis or clubbing Procedures 07/19/16 EGD with PEG tube placement 09/27/16 colonoscopy Urinary Catheter: No Vascular Central Line Catheter: No A/P Assessment and Plan Neuro-Behcet, history of frontal lobe CVA, encephalopathy, history of meningitis , chronic No new changes on imaging. Patient was followed by neurology. Aphasic at baseline. Continue Imuran, prednisone EEG shows mild to moderate slowing at times of various depending on the epoch, there was no epileptic activity seen Continue PT/OT Palliative care following the patient and is still indicating the patient is making his own decisions, full code and full aggressive measures Sinus tachycardia. Stable Lopressor 25 mg twice daily. Held intermittently due to low blood pressure TSH, free T3, free T4 colon were normal Melena, bright red blood in stool, resolved Status post transfusion, emergency transferred to Main hospital, emergent endoscopy GI evaluated and managed patient with emergent colonoscopy showing small ulcer in the colon Continue Prevacid Sepsis, multiple episodes, resolved at this time Patient does have rather significant coccyx decubitus wound: Wound culture with pseudo fluorescens/putida, group D enterococcus VRE which is sensitive to Zosyn. Patient did have one urine culture of Daphney parapsilosis, was treated with fluconazole for 10 days. --Patient had episode of diarrhea, C. difficile cultures performed which was negative. --Possible aseptic meningitis Infectious disease consulted and last seen the patient on 10/18/16, at that time it was indicated to observe off antibiotics. 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 Would benefit from long-term steroids Prerenal azotemia, resolved Continue monitor renal function periodically Hypernatremia, Increase free water flushes 250 cc every 4 hours Monitor sodium level, BMP ordered for 12/20/16 Decreased oral intake and dysphagia on initial presentation Speech therapy following intermittently. S/P barium swallow. Patient with severe dysphagia. GI was consulted and PEG tube was placed. Dietary recommending Glucerna 1.5 at 70 mL's an hour with Maury twice daily, Continue continuous tube feeding until patient appears to be more nutritionally stable and then will evaluate for bolus feeding Coccyx decubitus. Wound care nurse is following the patient for management Patient with specialty bed Mood disorder, depression Patient was evaluated by psychiatrist. Psychiatrist recommended [facility] Reconsult psychiatry for evaluation due to increased depression symptoms Diabetes Glucose well controlled, DVT Prophylaxis: Lovenox, TEDs/SCDs. Discharge Planning Case management for discharge planning Ede Richardson Dec 19, 2016 11:30
[2016-12-19 20:00] VITALS: BP 100/75; PULSE 92; RESP 22; TEMP 97.8; O2SAT 98
[2016-12-20] MEDS: azaTHIOprine 50 MG TAB PEG SCH ×2 (05:25→09:56)
--- NOTE | 2016-12-20 07:33 | HHI.PYPN ---
Subjective Remarks Patient seen today for psychiatric reevaluation, patient is found laying in his bed, staring to the holman, limited communication due to speech impairment, but patient is able to blink his eyes once or twice, meaning yeas and not. Patient reports sad mood, problems sleeping at night, feels pessimistic. He denies pain. Denies suicidal ideation. Becomes tearful during the evaluation, at some point is very difficult to confirm his communication is reliable. No agitation, no aggressive behavior reported, but as per nurse very frequent crying spells. Review of Systems Other No somatic complaints Objective Alert: Yes [place]: Person Mood: Depressed Affect: Restricted Memory Intact: Comment (unable to be assessed) Hallucinations: Other (he denies) Delusions: No Delusion Type: Other (no illicit) Suicidal: Ideation (no SI) Homicidal: Ideation (no HI) Insight/Judgment Fair Vitals/IOs Vital Signs Date Time Temp Pulse Resp B/P Pulse Ox O2 Delivery O2 Flow Rate FiO2 12/19/16 20:00 97.8 92 22 100/75 98 Intake and Output 12/19/16 12/19/16 12/20/16 08:00 16:00 00:00 Intake Total 840 ml Output Total 250 ml 350 ml 375 ml Balance 590 ml -350 ml -375 ml Assessment & Plan Problem List: (1) Depression Assessment & Plan: Patient seems to have increased intensity of depression. Limited communication, also unreliable. Hypoactive delirium versus depression. We'll increase Prozac to 40 mg, add Seroquel 50 mg at night to help with mood and also with sleep. Support and hope provided. ICD Code: F32.9 Assessment & Plan Estimated LOS: days Justification for Cont. Inpt. Patient does not meet criteria for psychiatric admission at this moment Problem Qualifiers (1) Depression: Mukul Youssef MD Dec 20, 2016 07:33
[2016-12-20 08:00] VITALS: BP 128/80; PULSE 74; RESP 18; TEMP 98.8; O2SAT 94
[2016-12-20 08:44] LABS: BICARBONATE 28.7 MEQ/L (21.0-32.0); CALCIUM 9.3 MG/DL (8.5-10.1)
[2016-12-20 08:47] LABS: CREATININE 0.81 MG/DL (0.60-1.30)
[2016-12-20] MEDS: JUVEN POWDER 1 PACK G-TUBE SCH ×2 (09:00→21:00)
[2016-12-20] MEDS: LACTIC ACID (AMMONIUM LACTATE) 12% LOTION 225 GM BTL TOPICAL SCH ×2 (09:00→20:59)
[2016-12-20] MEDS: COLLAGENASE OINT 30 GM TUBE TOP SCH (09:00)
[2016-12-20] MEDS: FLUoxetine HCL LIQUID 20 MG/5 ML CUP PEG SCH (09:55)
[2016-12-20] MEDS: SENNOSIDES SYRUP 8.8 MG/5 ML CUP PEG SCH (09:56)
[2016-12-20] MEDS: ENOXAPARIN SODIUM 40 MG/0.4 ML SYRINGE SQ SCH (09:56)
[2016-12-20] MEDS: METOPROLOL TARTRATE 25 MG TAB PEG SCH ×2 (09:56→21:00)
[2016-12-20] MEDS: LANSOPRAZOLE SOLUTAB 30 MG TAB PEG SCH ×2 (09:56→20:59)
[2016-12-20] MEDS: predniSONE 20 MG TAB PEG SCH (09:56)
[2016-12-20] MEDS: LACTOBACILLUS ACIDOPHILUS TAB PEG SCH ×2 (09:56→20:59)
[2016-12-20] MEDS: ACETAMINOPHEN/HYDROcodone 325 MG/5 MG TAB PEG PRN (10:13)
--- NOTE | 2016-12-20 10:24 | HHI.PR ---
Subjective Remarks Follow-up for neuro Behet's syndrome. Patient appears emotional. He denies any pain. Denies any shortness of breath. Objective Vitals Vital Signs Date Time Temp Pulse Resp B/P Pulse Ox O2 Delivery O2 Flow Rate FiO2 12/19/16 20:00 97.8 92 22 100/75 98 I/O 12/19/16 12/19/16 12/19/16 12/20/16 12/20/16 12/20/16 07:00 15:00 23:00 07:00 15:00 23:00 Intake Total 840 ml 840 ml Output Total 250 ml 350 ml 375 ml 400 ml Balance 590 ml -350 ml -375 ml 440 ml Tube Feeding 840 ml 840 ml Output Urine Total 250 ml 350 ml 375 ml 400 ml # Bowel Movements 0 Result Diagram: 12/17/16 0711 12/20/16 0800 Objective Remarks GENERAL: Thin patient in no apparent distress. CARDIOVASCULAR: Tachycardic rate and regular rhythm. RESPIRATORY: Grunting type breathing. CTAB. GASTROINTESTINAL: Abdomen soft, non-tender, nondistended. NEUROLOGICAL: Awake and alert. Nods head to answer questions. PSYCHIATRIC: Emotional grunting. 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 Patient followed by neurology. Aphasic at baseline. Neurology following the patient Continue Imuran, prednisone EEG shows mild to moderate slowing at times of various depending on the epoch, there was no epileptic activity seen Continue PT/OT Palliative care following the patient and is still indicating the patient is making his own decisions, full code and full aggressive measures [place] as needed for pain. Sinus tachycardia: Improved. Lopressor 25 mg twice daily. TSH, free T3, free T4 were normal Melena, bright red blood in stool: Resolved Status post transfusion, emergently transferred to main hospital, emergent endoscopy GI evaluated and managed patient with emergent colonoscopy showing small ulcer in the colon Continue Prevacid Hemoglobin stable at 11.4 on 11/04. Sepsis, multiple episodes: Resolved at this time Patient does have rather significant coccyx decubitus wound: Wound culture with pseudo fluorescens/putida, group D enterococcus VRE which is sensitive to Zosyn. Patient did have one urine culture of Daphney parapsilosis, was treated with fluconazole for 10 days. --Patient had episode of diarrhea, C. difficile cultures performed which was negative. --Possible aseptic meningitis Infectious disease consulted and last seen the patient on 10/18/16, at that time it was indicated to observe off antibiotics. 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 Would benefit from long-term steroids. Prerenal azotemia: Improved Continue IV fluids Continue to monitor renal function Hypernatremia: Resolved Continue free water flushes 200 cc every 4 hours Continue IV fluids Monitor sodium level Decreased oral intake and dysphagia on initial presentation Speech therapy following intermittently. S/P barium swallow. Patient with severe dysphagia. GI consulted and PEG tube was placed. Dietary recommending Glucerna 1.5 at 70 mL/hour with Maury twice daily. Coccyx decubitus: Wound care nurse is following the patient for management.Recommends continuing to change dressings with Santyl ointment and cleansing with normal saline only. Apply nickly thick santyl ointment to slightly moistened maxorb II dressing loosely packed in wound bed and cover with bordered gauze, to be changed daily. Specialty bed Ankle ulcer: R lateral malleolus. -Foam boots. Wound care has evaluated; paint with skin prep or betadine and leave open to air. Depression: Worse Patient was evaluated by psychiatrist. 11/12: Prozac increased to 20 mg daily. 12/20: Reevaluated by psychiatry today. Prozac increased to 40 mg daily. Seroquel 50 mg added at night to help with mood and sleep. Diabetes Glucose well controlled. Discontinued Accu-Cheks and sliding scale insulin DVT Prophylaxis: Lovenox, TEDs/SCDs. Discharge Planning 12/12/16: Patient's income goes to court ordered child support making it difficult for placement as patient needs additional funds to offset what's not covered by Medicaid; CM is awaiting to speak with significant other in regards to returning home with care provided by family. Problem Qualifiers (1) GI bleed: Qualified Code: K92.2 - Gastrointestinal hemorrhage, unspecified gastrointestinal hemorrhage type (2) UTI (urinary tract infection): Qualified Code: N30.00 - Acute cystitis without hematuria (3) Effusion of hip joint: Qualified Code: M25.459 - Effusion of hip joint, unspecified laterality Mari Talamantes Dec 20, 2016 10:24
[2016-12-20 20:00] VITALS: BP 100/79; PULSE 66; RESP 22; TEMP 97.6; O2SAT 98
[2016-12-20] MEDS: QUEtiapine FUMARATE 25 MG TAB PO SCH (20:59)
[2016-12-21] MEDS: azaTHIOprine 50 MG TAB PEG SCH ×2 (05:52→17:04)
[2016-12-21 08:00] VITALS: BP 96/78; PULSE 90; RESP 24; TEMP 96.4; O2SAT 98
[2016-12-21] MEDS: METOPROLOL TARTRATE 25 MG TAB PEG SCH ×2 (09:00→21:44)
[2016-12-21] MEDS: JUVEN POWDER 1 PACK G-TUBE SCH ×2 (09:00→21:00)
[2016-12-21] MEDS: FLUoxetine HCL LIQUID 20 MG/5 ML CUP PEG SCH (10:15)
[2016-12-21] MEDS: ENOXAPARIN SODIUM 40 MG/0.4 ML SYRINGE SQ SCH (10:15)
[2016-12-21] MEDS: LANSOPRAZOLE SOLUTAB 30 MG TAB PEG SCH ×2 (10:16→21:44)
[2016-12-21] MEDS: SENNOSIDES SYRUP 8.8 MG/5 ML CUP PEG SCH (10:16)
[2016-12-21] MEDS: LACTOBACILLUS ACIDOPHILUS TAB PEG SCH ×2 (10:16→21:44)
[2016-12-21] MEDS: predniSONE 20 MG TAB PEG SCH (10:17)
[2016-12-21] MEDS: LACTIC ACID (AMMONIUM LACTATE) 12% LOTION 225 GM BTL TOPICAL SCH ×2 (10:18→21:43)
[2016-12-21] MEDS: COLLAGENASE OINT 30 GM TUBE TOP SCH (10:18)
--- NOTE | 2016-12-21 11:06 | HHI.PR ---
Subjective Remarks Follow-up for neuro Behet's syndrome. Patient denies any pain. Objective Vitals Vital Signs Date Time Temp Pulse Resp B/P Pulse Ox O2 Delivery O2 Flow Rate FiO2 12/21/16 08:00 96.4 90 24 96/78 98 12/20/16 20:00 97.6 66 22 100/79 98 I/O 12/20/16 12/20/16 12/20/16 12/21/16 12/21/16 12/21/16 07:00 15:00 23:00 07:00 15:00 23:00 Intake Total 840 ml 1470 ml 1060 ml Output Total 400 ml 500 ml 325 ml Balance 440 ml 970 ml 735 ml Tube Feeding 840 ml 1120 ml 560 ml Tube Irrigant 250 ml 500 ml Other 100 ml Output Urine Total 400 ml 500 ml 325 ml # Bowel Movements 1 Result Diagram: 12/17/16 0711 12/20/16 0800 Objective Remarks GENERAL: Thin patient in no apparent distress. CARDIOVASCULAR: Regular rate and rhythm. RESPIRATORY: Transmitted grunting sounds but otherwise clear. GASTROINTESTINAL: Abdomen soft, non-tender, nondistended. Feeding tube present. NEUROLOGICAL: Awake and alert. Nods head to answer questions. PSYCHIATRIC: Stable affect. 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 Patient followed by neurology. Aphasic at baseline. Neurology following the patient Continue Imuran, prednisone EEG shows mild to moderate slowing at times of various depending on the epoch, there was no epileptic activity seen Continue PT/OT Palliative care following the patient and is still indicating the patient is making his own decisions, full code and full aggressive measures [place] as needed for pain. Sinus tachycardia: Improved. Lopressor 25 mg twice daily. TSH, free T3, free T4 were normal Melena, bright red blood in stool: Resolved Status post transfusion, emergently transferred to [facility], emergent endoscopy GI evaluated and managed patient with emergent colonoscopy showing small ulcer in the colon Continue Prevacid Hemoglobin stable at 11.4 on 11/04. Sepsis, multiple episodes: Resolved at this time Patient does have rather significant coccyx decubitus wound: Wound culture with pseudo fluorescens/putida, group D enterococcus VRE which is sensitive to Zosyn. Patient did have one urine culture of Daphney parapsilosis, was treated with fluconazole for 10 days. --Patient had episode of diarrhea, C. difficile cultures performed which was negative. --Possible aseptic meningitis Infectious disease consulted and last seen the patient on 10/18/16, at that time it was indicated to observe off antibiotics. 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 Would benefit from long-term steroids. Prerenal azotemia: Improved Continue IV fluids Continue to monitor renal function Hypernatremia: Resolved Continue free water flushes 200 cc every 4 hours Continue IV fluids Monitor sodium level Decreased oral intake and dysphagia on initial presentation Speech therapy following intermittently. S/P barium swallow. Patient with severe dysphagia. GI consulted and PEG tube was placed. Dietary recommending Glucerna 1.5 at 70 mL/hour with Maury twice daily. Coccyx decubitus: Wound care nurse is following the patient for management.Recommends continuing to change dressings with Santyl ointment and cleansing with normal saline only. Apply nickly thick santyl ointment to slightly moistened maxorb II dressing loosely packed in wound bed and cover with bordered gauze, to be changed daily. Specialty bed Ankle ulcer: R lateral malleolus. -Foam boots. Wound care has evaluated; paint with skin prep or betadine and leave open to air. Depression: Worse Patient was evaluated by psychiatrist. 12/20: Reevaluated by psychiatry. Prozac increased to 40 mg daily. Seroquel 50 mg added at night to help with mood and sleep. Diabetes Glucose well controlled. Discontinued Accu-Cheks and sliding scale insulin DVT Prophylaxis: Lovenox, TEDs/SCDs. Discharge Planning 12/12/16: Patient's income goes to court ordered child support making it difficult for placement as patient needs additional funds to offset what's not covered by Medicaid; CM is awaiting to speak with significant other in regards to returning home with care provided by family. 12/21/16: I spoke with Gustavo Louis, disability case manager, who is going to try to arrange for patient to be transported back to [place] to live with mother. Problem Qualifiers (1) GI bleed: Qualified Code: K92.2 - Gastrointestinal hemorrhage, unspecified gastrointestinal hemorrhage type (2) UTI (urinary tract infection): Qualified Code: N30.00 - Acute cystitis without hematuria (3) Effusion of hip joint: Qualified Code: M25.459 - Effusion of hip joint, unspecified laterality Mari Talamantes Dec 21, 2016 11:06
[2016-12-21 20:00] VITALS: BP 104/71; PULSE 80; RESP 16; TEMP 96.6; O2SAT 99
[2016-12-21] MEDS: QUEtiapine FUMARATE 25 MG TAB PO SCH (21:44)
[2016-12-22] MEDS: azaTHIOprine 50 MG TAB PEG SCH ×2 (05:18→08:34)
[2016-12-22 08:00] VITALS: BP 107/76; PULSE 85; RESP 23; TEMP 97.7; O2SAT 98
[2016-12-22] MEDS: LANSOPRAZOLE SOLUTAB 30 MG TAB PEG SCH ×2 (08:33→20:12)
[2016-12-22] MEDS: FLUoxetine HCL LIQUID 20 MG/5 ML CUP PEG SCH (08:33)
[2016-12-22] MEDS: LACTOBACILLUS ACIDOPHILUS TAB PEG SCH ×2 (08:33→20:12)
[2016-12-22] MEDS: SENNOSIDES SYRUP 8.8 MG/5 ML CUP PEG SCH (08:34)
[2016-12-22] MEDS: LACTIC ACID (AMMONIUM LACTATE) 12% LOTION 225 GM BTL TOPICAL SCH ×2 (08:34→20:15)
[2016-12-22] MEDS: predniSONE 20 MG TAB PEG SCH (08:34)
[2016-12-22] MEDS: METOPROLOL TARTRATE 25 MG TAB PEG SCH ×2 (08:34→20:13)
[2016-12-22] MEDS: JUVEN POWDER 1 PACK G-TUBE SCH ×2 (08:34→20:15)
[2016-12-22] MEDS: COLLAGENASE OINT 30 GM TUBE TOP SCH (08:34)
[2016-12-22] MEDS: ENOXAPARIN SODIUM 40 MG/0.4 ML SYRINGE SQ SCH (08:34)
--- NOTE | 2016-12-22 09:59 | PD.WCN.NOT ---
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 Removed adhesive foam dressing in place to reveal wound to sacrococcygeal area.Sacrococcygeal wound bed noted with 100% coverage beefy red granulation tissue that appears to be granulating upwards toward surface of skin.Wound noted with minimal serous drainage. Wound appears slightly improved from previous assessment. Wound measurements are as follows: 2.8cm x 0.8cm x 0.6cm. Undermining noted from 4 to 2 o'clock 1.1 cm at the deepest. New epithelial tissue noted at wound margins.Periwound assessed with scar tissue and maceration between 5 and 6 o'clock Cleansed wound with normal saline and applied Santyl Ointment with luis thick coverage to loosely packed slightly moistened Maxorb II dressing.Covered wound with dry cover dressing Removed bordered gauze dressing to R ankle to reveal open wound over R lateral malleolus. Wound presents with 50% yellow adherent slough and 50% pink tissue.Presence of slough in wound over rob prominence indicates an unstageable pressure injury.Wound has minimal sero-sanguinous drainage. Periwound is noted with scar tissue. Wound margins assessed with new epithelial tissue. Wound measurements are as follows 1.9 x 1.4 x slough. Cleansed wound with normal saline and applied luis thick coverage of Santyl ointment and covered with adhesive foam dressing Wound care will continue to follow patient weekly. Communicated with: SHIRLENE Brown Recommendation: Recommend to continue dressing changes with Santyl and Maxorb II to sacral/ coccyx area, cleansing wound with normal saline only. Also continue Santyl and adhesive foam dressing to R lateral malleolus wound. 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 Peeled back adhesive foam dressing in place to reveal wound to sacrococcygeal area. Dressing already changed today with Santyl to wound bed and loosely packed Maxorb II.Sacrococcygeal wound bed noted with 100% coverage beefy red granulation tissue.Wound noted with minimal serous drainage. Wound appears improved from previous assessment. Wound measurements are as follows: 1.8cm x 1.2cm x 0.8cm. Undermining noted from 9 to 12 o'clock 0.7 cm at the deepest. New epithelial tissue noted at wound margins.Periwound assessed with scar tissue but is otherwise unremarkable. Repacked wound loosely with Maxorb II.Reapplied adhesive foam dressing in place. Peeled back bordered gauze dressing to reveal open wound over R lateral malleolus. Wound presents with 50% yellow adherent slough and 50% pink tissue.Presence of slough in wound over rob prominence indicates an unstageable pressure injury.Wound has minimal sero-sanguinous drainage. Wound measurements are as follows 1.9 x 1.5 x slough.Reapplied bordered gauze dressing back in place. Wound care will continue to follow patient weekly. Arleen Gibbs [facility] Dec 22, 2016 09:59
--- NOTE | 2016-12-22 10:16 | HHI.PR ---
Subjective Remarks Follow-up for neuro Behet's syndrome. Nods head to answer questions. Denies any pain. Denies any shortness of breath; is comfortable. Objective Vitals Vital Signs Date Time Temp Pulse Resp B/P Pulse Ox O2 Delivery O2 Flow Rate FiO2 12/22/16 08:00 97.7 85 23 107/76 98 12/21/16 20:00 96.6 80 16 104/71 99 I/O 12/21/16 12/21/16 12/21/16 12/22/16 12/22/16 12/22/16 07:00 15:00 23:00 07:00 15:00 23:00 Intake Total 1060 ml 0 ml 250 ml 2000 ml Output Total 325 ml 300 ml 450 ml 450 ml Balance 735 ml -300 ml -200 ml 1550 ml Intake Oral 0 ml Tube Feeding 560 ml 1500 ml Tube Irrigant 500 ml Other 250 ml 500 ml Output Urine Total 325 ml 300 ml 450 ml 450 ml # Bowel Movements 1 0 0 0 Result Diagram: 12/20/16 0800 Objective Remarks GENERAL: Thin patient in no apparent distress. CARDIOVASCULAR: Regular rate and rhythm. RESPIRATORY: Abnormal breathing but clear. GASTROINTESTINAL: Abdomen soft, non-tender, nondistended. Feeding tube present. NEUROLOGICAL: Awake and alert. Nods head to answer questions. PSYCHIATRIC: Stable affect. 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 Patient followed by neurology. Aphasic at baseline. Neurology following the patient Continue Imuran, prednisone EEG shows mild to moderate slowing at times of various depending on the epoch, there was no epileptic activity seen Continue PT/OT Palliative care following the patient and is still indicating the patient is making his own decisions, full code and full aggressive measures [place] as needed for pain. Sinus tachycardia: Improved. Lopressor 25 mg twice daily. TSH, free T3, free T4 were normal Melena, bright red blood in stool: Resolved Status post transfusion, emergently transferred to [facility], emergent endoscopy GI evaluated and managed patient with emergent colonoscopy showing small ulcer in the colon Continue Prevacid Hemoglobin stable at 11.4 on 11/04. Sepsis, multiple episodes: Resolved at this time Patient does have rather significant coccyx decubitus wound: Wound culture with pseudo fluorescens/putida, group D enterococcus VRE which is sensitive to Zosyn. Patient did have one urine culture of Daphney parapsilosis, was treated with fluconazole for 10 days. --Patient had episode of diarrhea, C. difficile cultures performed which was negative. --Possible aseptic meningitis Infectious disease consulted and last seen the patient on 10/18/16, at that time it was indicated to observe off antibiotics. 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 Would benefit from long-term steroids. Prerenal azotemia: Improved Continue IV fluids Continue to monitor renal function Hypernatremia: Resolved Continue free water flushes 200 cc every 4 hours Continue IV fluids Monitor sodium level Decreased oral intake and dysphagia on initial presentation Speech therapy following intermittently. S/P barium swallow. Patient with severe dysphagia. GI consulted and PEG tube was placed. Dietary recommending Glucerna 1.5 at 70 mL/hour with Maury twice daily. Coccyx decubitus: Wound care nurse is following the patient for management.Recommends continuing to change dressings with Santyl ointment and cleansing with normal saline only. Apply nickly thick santyl ointment to slightly moistened maxorb II dressing loosely packed in wound bed and cover with bordered gauze, to be changed daily. Specialty bed Ankle ulcer: R lateral malleolus. -Foam boots. Wound care has evaluated; paint with skin prep or betadine and leave open to air. Depression: Worse Patient was evaluated by psychiatrist. 12/20: Reevaluated by psychiatry. Prozac increased to 40 mg daily. Seroquel 50 mg added at night to help with mood and sleep. Diabetes Glucose well controlled. Discontinued Accu-Cheks and sliding scale insulin DVT Prophylaxis: Lovenox, TEDs/SCDs. Discharge Planning 12/12/16: Patient's income goes to court ordered child support making it difficult for placement as patient needs additional funds to offset what's not covered by Medicaid; CM is awaiting to speak with significant other in regards to returning home with care provided by family. 12/21/16: I spoke with Gustavo Louis, disability case manager, who is going to try to arrange for patient to be transported back to [place] to live with mother. Problem Qualifiers (1) GI bleed: Qualified Code: K92.2 - Gastrointestinal hemorrhage, unspecified gastrointestinal hemorrhage type (2) UTI (urinary tract infection): Qualified Code: N30.00 - Acute cystitis without hematuria (3) Effusion of hip joint: Qualified Code: M25.459 - Effusion of hip joint, unspecified laterality Mari Talamantes Dec 22, 2016 10:16
[2016-12-22 20:00] VITALS: BP 90/65; PULSE 87; RESP 14; TEMP 96.5; O2SAT 97
[2016-12-22] MEDS: QUEtiapine FUMARATE 25 MG TAB PO SCH (20:13)
[2016-12-23] MEDS: azaTHIOprine 50 MG TAB PEG SCH ×2 (05:19→08:21)
[2016-12-23 08:00] VITALS: BP 88/75; PULSE 93; RESP 18; TEMP 99; O2SAT 95
[2016-12-23] MEDS: METOPROLOL TARTRATE 25 MG TAB PEG SCH ×2 (08:03→20:30)
[2016-12-23] MEDS: LACTOBACILLUS ACIDOPHILUS TAB PEG SCH ×2 (08:21→20:37)
[2016-12-23] MEDS: LANSOPRAZOLE SOLUTAB 30 MG TAB PEG SCH ×2 (08:21→20:30)
[2016-12-23] MEDS: FLUoxetine HCL LIQUID 20 MG/5 ML CUP PEG SCH (08:21)
[2016-12-23] MEDS: predniSONE 20 MG TAB PEG SCH (08:21)
[2016-12-23] MEDS: SENNOSIDES SYRUP 8.8 MG/5 ML CUP PEG SCH (08:21)
[2016-12-23] MEDS: LACTIC ACID (AMMONIUM LACTATE) 12% LOTION 225 GM BTL TOPICAL SCH ×2 (08:22→20:31)
[2016-12-23] MEDS: COLLAGENASE OINT 30 GM TUBE TOP SCH (08:22)
[2016-12-23] MEDS: ENOXAPARIN SODIUM 40 MG/0.4 ML SYRINGE SQ SCH (08:22)
[2016-12-23] MEDS: ACETAMINOPHEN/HYDROcodone 325 MG/5 MG TAB PEG PRN (08:22)
[2016-12-23] MEDS: JUVEN POWDER 1 PACK G-TUBE SCH ×2 (09:00→20:37)
--- NOTE | 2016-12-23 09:59 | HHI.PR ---
Subjective Remarks Follow-up for neuro Behet's syndrome. Patient nods yes when I ask him if he is doing okay. Objective Vitals Vital Signs Date Time Temp Pulse Resp B/P Pulse Ox O2 Delivery O2 Flow Rate FiO2 12/22/16 20:00 96.5 87 14 90/65 97 I/O 12/22/16 12/22/16 12/22/16 12/23/16 12/23/16 12/23/16 07:00 15:00 23:00 07:00 15:00 23:00 Intake Total 2000 ml 0 ml 840 ml Output Total 450 ml 300 ml 250 ml 450 ml Balance 1550 ml -300 ml -250 ml 390 ml Intake Oral 0 ml Tube Feeding 1500 ml 840 ml Other 500 ml Output Urine Total 450 ml 300 ml 250 ml 450 ml # Bowel Movements 0 1 0 1 Result Diagram: 12/20/16 0800 Objective Remarks GENERAL: Thin patient in no apparent distress. CARDIOVASCULAR: Regular rate and rhythm. RESPIRATORY: Abnormal grunting but clear. GASTROINTESTINAL: Abdomen non-tender, nondistended. Feeding tube present. NEUROLOGICAL: Awake and alert. Nods head to answer questions. PSYCHIATRIC: Stable affect. 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 Patient followed by neurology. Aphasic at baseline. Neurology following the patient Continue Imuran, prednisone EEG shows mild to moderate slowing at times of various depending on the epoch, there was no epileptic activity seen Continue PT/OT Palliative care following the patient and is still indicating the patient is making his own decisions, full code and full aggressive measures [place] as needed for pain. Sinus tachycardia: Improved. Lopressor 25 mg twice daily. TSH, free T3, free T4 were normal Melena, bright red blood in stool: Resolved Status post transfusion, emergently transferred to main hospital, emergent endoscopy GI evaluated and managed patient with emergent colonoscopy showing small ulcer in the colon Continue Prevacid Hemoglobin stable at 12.8 on 12/17. Sepsis, multiple episodes: Resolved at this time Patient does have rather significant coccyx decubitus wound: Wound culture with pseudo fluorescens/putida, group D enterococcus VRE which is sensitive to Zosyn. Patient did have one urine culture of Daphney parapsilosis, was treated with fluconazole for 10 days. --Patient had episode of diarrhea, C. difficile cultures performed which was negative. --Possible aseptic meningitis Infectious disease consulted and last seen the patient on 10/18/16, at that time it was indicated to observe off antibiotics. 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 Would benefit from long-term steroids. Prerenal azotemia: Improved. BUN 35-->30. Continue to monitor renal function Hypernatremia and hyperchloremia: Improved. Continue free water flushes 200 cc every 4 hours Na elevated at 151 on 12/20 with Cl of 114. Repeat BMP today with improved Na and Cl of 146 and 110 respectively. Decreased oral intake and dysphagia on initial presentation Speech therapy following intermittently. S/P barium swallow. Patient with severe dysphagia. GI consulted and PEG tube was placed. Dietary recommending Glucerna 1.5 at 70 mL/hour with Maury twice daily. Coccyx decubitus: Wound care nurse is following the patient for management.Recommends continuing to change dressings with Santyl ointment and cleansing with normal saline only. Apply nickly thick santyl ointment to slightly moistened maxorb II dressing loosely packed in wound bed and cover with bordered gauze, to be changed daily. Specialty bed Ankle ulcer: R lateral malleolus. -Foam boots. Wound care has evaluated; paint with skin prep or betadine and leave open to air. Depression: Worse Patient was evaluated by psychiatrist. 12/20: Reevaluated by psychiatry. Prozac increased to 40 mg daily. Seroquel 50 mg added at night to help with mood and sleep. Diabetes Glucose well controlled. Discontinued Accu-Cheks and sliding scale insulin DVT Prophylaxis: Lovenox, TEDs/SCDs. Discharge Planning 12/12/16: Patient's income goes to court ordered child support making it difficult for placement as patient needs additional funds to offset what's not covered by Medicaid; CM is awaiting to speak with significant other in regards to returning home with care provided by family. 12/21/16: I spoke with Gustavo Louis, embedded case manager, who is going to try to arrange for patient to be transported back to [place] to live with mother. Problem Qualifiers (1) GI bleed: Qualified Code: K92.2 - Gastrointestinal hemorrhage, unspecified gastrointestinal hemorrhage type (2) UTI (urinary tract infection): Qualified Code: N30.00 - Acute cystitis without hematuria (3) Effusion of hip joint: Qualified Code: M25.459 - Effusion of hip joint, unspecified laterality Mari Talamantes Dec 23, 2016 09:59 Mari Talamantes Dec 23, 2016 09:59
[2016-12-23 13:35] VITALS: BP 110/72
[2016-12-23 16:03] LABS: CALCIUM 9.6 MG/DL (8.5-10.1)
[2016-12-23 16:04] LABS: BICARBONATE 29.1 MEQ/L (21.0-32.0)
[2016-12-23 16:07] LABS: CREATININE 0.75 MG/DL (0.60-1.30)
[2016-12-23] MEDS: QUEtiapine FUMARATE 25 MG TAB PO SCH (20:30)
[2016-12-23 20:42] VITALS: BP 118/87; PULSE 81; RESP 22; TEMP 98.9; O2SAT 95
[2016-12-24] MEDS: azaTHIOprine 50 MG TAB PEG SCH ×2 (05:56→07:48)
[2016-12-24] MEDS: FLUoxetine HCL LIQUID 20 MG/5 ML CUP PEG SCH (07:46)
[2016-12-24] MEDS: SENNOSIDES SYRUP 8.8 MG/5 ML CUP PEG SCH (07:46)
[2016-12-24] MEDS: ENOXAPARIN SODIUM 40 MG/0.4 ML SYRINGE SQ SCH (07:46)
[2016-12-24] MEDS: LACTOBACILLUS ACIDOPHILUS TAB PEG SCH ×2 (07:46→22:25)
[2016-12-24] MEDS: JUVEN POWDER 1 PACK G-TUBE SCH ×2 (07:47→21:00)
[2016-12-24] MEDS: LANSOPRAZOLE SOLUTAB 30 MG TAB PEG SCH ×2 (07:47→22:25)
[2016-12-24] MEDS: predniSONE 20 MG TAB PEG SCH (07:47)
[2016-12-24] MEDS: COLLAGENASE OINT 30 GM TUBE TOP SCH (07:47)
[2016-12-24] MEDS: ACETAMINOPHEN/HYDROcodone 325 MG/5 MG TAB PEG PRN (07:47)
[2016-12-24] MEDS: METOPROLOL TARTRATE 25 MG TAB PEG SCH ×2 (07:47→22:25)
[2016-12-24] MEDS: LACTIC ACID (AMMONIUM LACTATE) 12% LOTION 225 GM BTL TOPICAL SCH ×2 (07:48→21:00)
[2016-12-24 08:00] VITALS: BP 89/72; PULSE 90; RESP 19; TEMP 97.2; O2SAT 98
--- NOTE | 2016-12-24 09:44 | HHI.PR ---
Subjective Remarks Follow-up for neuro Behet's syndrome. No acute issues. Objective Vitals Vital Signs Date Time Temp Pulse Resp B/P Pulse Ox O2 Delivery O2 Flow Rate FiO2 12/24/16 08:00 97.2 90 19 89/72 98 12/23/16 20:42 98.9 81 22 118/87 95 12/23/16 13:35 110/72 I/O 12/23/16 12/23/16 12/23/16 12/24/16 12/24/16 12/24/16 07:00 15:00 23:00 07:00 15:00 23:00 Intake Total 840 ml Output Total 450 ml 701 ml Balance 390 ml -701 ml Tube Feeding 840 ml Output Urine Total 450 ml 700 ml Stool Total 1 ml # Bowel Movements 1 1 2 Result Diagram: 12/23/16 1545 Objective Remarks GENERAL: Thin patient in no apparent distress. CARDIOVASCULAR: Regular rate and rhythm. RESPIRATORY: Lung auscultation is difficult as patient grunts with his breathing. GASTROINTESTINAL: Abdomen soft, non-tender, nondistended. Feeding tube present. NEUROLOGICAL: Awake and alert. Nods head to answer questions. PSYCHIATRIC: Stable affect. 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 Patient followed by neurology. Aphasic at baseline. Neurology following the patient Continue Imuran, prednisone EEG shows mild to moderate slowing at times of various depending on the epoch, there was no epileptic activity seen Continue PT/OT Palliative care following the patient and is still indicating the patient is making his own decisions, full code and full aggressive measures [place] as needed for pain. Sinus tachycardia: Improved. Lopressor 25 mg twice daily. TSH, free T3, free T4 were normal Melena, bright red blood in stool: Resolved Status post transfusion, emergently transferred to main hospital, emergent endoscopy GI evaluated and managed patient with emergent colonoscopy showing small ulcer in the colon Continue Prevacid Hemoglobin stable at 12.8 on 12/17. Sepsis, multiple episodes: Resolved at this time Patient does have rather significant coccyx decubitus wound: Wound culture with pseudo fluorescens/putida, group D enterococcus VRE which is sensitive to Zosyn. Patient did have one urine culture of Daphney parapsilosis, was treated with fluconazole for 10 days. --Patient had episode of diarrhea, C. difficile cultures performed which was negative. --Possible aseptic meningitis Infectious disease consulted and last seen the patient on 10/18/16, at that time it was indicated to observe off antibiotics. 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 Would benefit from long-term steroids. Prerenal azotemia: Improved. BUN 35-->30. Continue to monitor renal function Hypernatremia and hyperchloremia: Improved. Continue free water flushes 200 cc every 4 hours Na elevated at 151 on 12/20 with Cl of 114. BMP 12/23 with improved Na and Cl of 146 and 110 respectively. Monitor periodically. Decreased oral intake and dysphagia on initial presentation Speech therapy following intermittently. S/P barium swallow. Patient with severe dysphagia. GI consulted and PEG tube was placed. Dietary recommending Glucerna 1.5 at 70 mL/hour with Maury twice daily. Coccyx decubitus: Wound care nurse is following the patient for management.Recommends continuing to change dressings with Santyl ointment and cleansing with normal saline only. Apply nickly thick santyl ointment to slightly moistened maxorb II dressing loosely packed in wound bed and cover with bordered gauze, to be changed daily. Specialty bed Ankle ulcer: R lateral malleolus. -Foam boots. Wound care has evaluated; paint with skin prep or betadine and leave open to air. Depression: Worse Patient was evaluated by psychiatrist. 12/20: Reevaluated by psychiatry. Prozac increased to 40 mg daily. Seroquel 50 mg added at night to help with mood and sleep. Diabetes Glucose well controlled. Discontinued Accu-Cheks and sliding scale insulin DVT Prophylaxis: Lovenox, TEDs/SCDs. Discharge Planning 12/12/16: Patient's income goes to court ordered child support making it difficult for placement as patient needs additional funds to offset what's not covered by Medicaid; CM is awaiting to speak with significant other in regards to returning home with care provided by family. 12/21/16: I spoke with Gustavo Louis, case reviewer, who is going to try to arrange for patient to be transported back to [place] to live with mother. Problem Qualifiers (1) GI bleed: Qualified Code: K92.2 - Gastrointestinal hemorrhage, unspecified gastrointestinal hemorrhage type (2) UTI (urinary tract infection): Qualified Code: N30.00 - Acute cystitis without hematuria (3) Effusion of hip joint: Qualified Code: M25.459 - Effusion of hip joint, unspecified laterality Mari Talamantes Dec 24, 2016 09:44
[2016-12-24 20:00] VITALS: BP 106/80; PULSE 113; RESP 22; TEMP 97.2; O2SAT 97
[2016-12-24] MEDS: QUEtiapine FUMARATE 25 MG TAB PO SCH (22:25)
[2016-12-25] MEDS: ACETAMINOPHEN/HYDROcodone 325 MG/5 MG TAB PEG PRN (02:27)
[2016-12-25] MEDS: azaTHIOprine 50 MG TAB PEG SCH ×2 (06:24→08:03)
[2016-12-25 08:00] VITALS: BP 85/78; PULSE 88; RESP 16; TEMP 97; O2SAT 98
[2016-12-25] MEDS: FLUoxetine HCL LIQUID 20 MG/5 ML CUP PEG SCH (08:03)
[2016-12-25] MEDS: SENNOSIDES SYRUP 8.8 MG/5 ML CUP PEG SCH (08:03)
[2016-12-25] MEDS: LACTOBACILLUS ACIDOPHILUS TAB PEG SCH ×2 (08:03→20:58)
[2016-12-25] MEDS: COLLAGENASE OINT 30 GM TUBE TOP SCH (08:04)
[2016-12-25] MEDS: ENOXAPARIN SODIUM 40 MG/0.4 ML SYRINGE SQ SCH (08:04)
[2016-12-25] MEDS: predniSONE 20 MG TAB PEG SCH (08:04)
[2016-12-25] MEDS: LACTIC ACID (AMMONIUM LACTATE) 12% LOTION 225 GM BTL TOPICAL SCH ×2 (08:04→20:58)
[2016-12-25] MEDS: JUVEN POWDER 1 PACK G-TUBE SCH ×3 (08:04→21:00)
[2016-12-25] MEDS: LANSOPRAZOLE SOLUTAB 30 MG TAB PEG SCH ×2 (08:04→20:58)
[2016-12-25] MEDS: METOPROLOL TARTRATE 25 MG TAB PEG SCH ×2 (08:07→20:58)
--- NOTE | 2016-12-25 09:24 | HHI.PR ---
Subjective Remarks Follow-up for neuro Behet's syndrome. Patient nods his head 'yes' when asked if he is doing okay. Objective Vitals Vital Signs Date Time Temp Pulse Resp B/P Pulse Ox O2 Delivery O2 Flow Rate FiO2 12/25/16 08:00 97.0 88 16 85/78 98 12/24/16 20:00 97.2 113 22 106/80 97 I/O 12/24/16 12/24/16 12/24/16 12/25/16 12/25/16 12/25/16 07:00 15:00 23:00 07:00 15:00 23:00 Output Total 400 ml 370.0 ml 100 ml Balance -400 ml -370.0 ml -100 ml Output Urine Total 400 ml 250 ml 100 ml Tube Feeding Residual Discard 120.0 ml # Bowel Movements 2 1 Result Diagram: 12/23/16 1545 Objective Remarks GENERAL: Thin patient in no apparent distress. CARDIOVASCULAR: Tachycardic 96 bpm with regular rhythm. RESPIRATORY: Abnormal breathing, but appears clear. GASTROINTESTINAL: Abdomen soft, non-tender, nondistended. Feeding tube present. NEUROLOGICAL: Awake and alert. Nods head to answer questions. PSYCHIATRIC: Stable affect. 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 Patient followed by neurology. Aphasic at baseline. Neurology following the patient Continue Imuran, prednisone EEG shows mild to moderate slowing at times of various depending on the epoch, there was no epileptic activity seen Continue PT/OT Palliative care following the patient and is still indicating the patient is making his own decisions, full code and full aggressive measures [place] as needed for pain. Sinus tachycardia: Improved. Lopressor 25 mg twice daily. TSH, free T3, free T4 were normal Melena, bright red blood in stool: Resolved Status post transfusion, emergently transferred to [facility], emergent endoscopy GI evaluated and managed patient with emergent colonoscopy showing small ulcer in the colon Continue Prevacid Hemoglobin stable at 12.8 on 12/17. Sepsis, multiple episodes: Resolved at this time Patient does have rather significant coccyx decubitus wound: Wound culture with pseudo fluorescens/putida, group D enterococcus VRE which is sensitive to Zosyn. Patient did have one urine culture of Daphney parapsilosis, was treated with fluconazole for 10 days. --Patient had episode of diarrhea, C. difficile cultures performed which was negative. --Possible aseptic meningitis Infectious disease consulted and last seen the patient on 10/18/16, at that time it was indicated to observe off antibiotics. 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 Would benefit from long-term steroids. Hypotension: Again hypotensive this morning with BP of 85/78 although map is intact 80. Patient has a history of hypotension but he has had more frequent readings in the 80s recently. Clinically stable. Afebrile. -Repeat BMP shows improvement. Nurse states patient is receiving approximately 200 cc of free water flushes every 4 hours. Prerenal azotemia: Improved. BUN decreased to 28. Continue to monitor renal function periodically. Hypernatremia and hyperchloremia: Improved. Continue free water flushes 200 cc every 4 hours Na elevated at 151 on 12/20 with Cl of 114. BMP 12/23 with improved Na and Cl of 146 and 110 respectively. Monitor periodically. 12/25: BMP today reviewed. Na and Cl now within normal limits Diabetes: Glucose was well controlled so Accu-Cheks and sliding scale insulin were discontinued. 12/25: Random BGL 208 but although lab done this afternoon. HbA1c 6.6 on 09/25/16. Discussed with Dr. Bill. Will restart bedside Accu-checks and low dose SSI. Will monitor BGLs and add long acting insulin if needed. Decreased oral intake and dysphagia on initial presentation Speech therapy following intermittently. S/P barium swallow. Patient with severe dysphagia. GI consulted and PEG tube was placed. Dietary recommending Glucerna 1.5 at 70 mL/hour with Maury twice daily. Coccyx decubitus: Wound care nurse is following the patient for management.Recommends continuing to change dressings with Santyl ointment and cleansing with normal saline only. Apply nickly thick santyl ointment to slightly moistened maxorb II dressing loosely packed in wound bed and cover with bordered gauze, to be changed daily. Specialty bed Ankle ulcer: R lateral malleolus. -Foam boots. Wound care has evaluated; paint with skin prep or betadine and leave open to air. Depression: Worse Patient was evaluated by psychiatrist. 12/20: Reevaluated by psychiatry. Prozac increased to 40 mg daily. Seroquel 50 mg added at night to help with mood and sleep. DVT Prophylaxis: Lovenox, TEDs/SCDs. Discharge Planning 12/12/16: Patient's income goes to court ordered child support making it difficult for placement as patient needs additional funds to offset what's not covered by Medicaid; CM is awaiting to speak with significant other in regards to returning home with care provided by family. 12/21/16: I spoke with Gustavo Louis, community case manager, who is going to try to arrange for patient to be transported back to [place] to live with mother. Problem Qualifiers (1) GI bleed: Qualified Code: K92.2 - Gastrointestinal hemorrhage, unspecified gastrointestinal hemorrhage type (2) UTI (urinary tract infection): Qualified Code: N30.00 - Acute cystitis without hematuria (3) Effusion of hip joint: Qualified Code: M25.459 - Effusion of hip joint, unspecified laterality Mari Talamantes Dec 25, 2016 09:24
[2016-12-25 14:48] LABS: CALCIUM 9.4 MG/DL (8.5-10.1)
[2016-12-25 14:49] LABS: BICARBONATE 30.1 MEQ/L (21.0-32.0)
[2016-12-25 14:52] LABS: CREATININE 0.87 MG/DL (0.60-1.30)
[2016-12-25 20:00] VITALS: BP 101/79; PULSE 101; RESP 22; TEMP 98.2; O2SAT 100
[2016-12-25] MEDS: QUEtiapine FUMARATE 25 MG TAB PO SCH (20:58)
[2016-12-25] MEDS: INSULIN ASPART SUPPLEMENTAL SCALE SQ SCH (20:58)
[2016-12-26] MEDS: azaTHIOprine 50 MG TAB PEG SCH ×2 (06:18→17:41)
[2016-12-26] MEDS: INSULIN ASPART SUPPLEMENTAL SCALE SQ SCH ×4 (06:25→21:00)
[2016-12-26 08:00] VITALS: BP 124/65; PULSE 90; RESP 18; TEMP 98; O2SAT 95
[2016-12-26] MEDS: SENNOSIDES SYRUP 8.8 MG/5 ML CUP PEG SCH (08:12)
[2016-12-26] MEDS: LACTOBACILLUS ACIDOPHILUS TAB PEG SCH ×2 (08:12→21:54)
[2016-12-26] MEDS: ENOXAPARIN SODIUM 40 MG/0.4 ML SYRINGE SQ SCH (08:12)
[2016-12-26] MEDS: FLUoxetine HCL LIQUID 20 MG/5 ML CUP PEG SCH (08:13)
[2016-12-26] MEDS: ACETAMINOPHEN/HYDROcodone 325 MG/5 MG TAB PEG PRN (08:13)
[2016-12-26] MEDS: METOPROLOL TARTRATE 25 MG TAB PEG SCH ×2 (08:14→21:54)
[2016-12-26] MEDS: LANSOPRAZOLE SOLUTAB 30 MG TAB PEG SCH ×2 (08:14→21:54)
[2016-12-26] MEDS: predniSONE 20 MG TAB PEG SCH (08:14)
[2016-12-26] MEDS: JUVEN POWDER 1 PACK G-TUBE SCH ×2 (08:14→21:00)
[2016-12-26] MEDS: LACTIC ACID (AMMONIUM LACTATE) 12% LOTION 225 GM BTL TOPICAL SCH ×2 (08:14→21:58)
[2016-12-26] MEDS: COLLAGENASE OINT 30 GM TUBE TOP SCH (08:14)
--- NOTE | 2016-12-26 10:51 | HHI.PR ---
Subjective Remarks Follow-up for neuro Behet's syndrome, diabetes. Patient nods his head 'yes' when I ask if he is doing okay. Denies any shortness of breath. Objective Vitals Vital Signs Date Time Temp Pulse Resp B/P Pulse Ox O2 Delivery O2 Flow Rate FiO2 12/26/16 08:00 98.0 90 18 124/65 95 12/25/16 20:00 98.2 101 22 101/79 100 I/O 12/25/16 12/25/16 12/25/16 12/26/16 12/26/16 12/26/16 07:00 15:00 23:00 07:00 15:00 23:00 Output Total 100 ml 750 ml 200 ml Balance -100 ml -750 ml -200 ml Output Urine Total 100 ml 750 ml 200 ml Result Diagram: 12/25/16 1420 Objective Remarks GENERAL: Thin patient in no apparent distress. CARDIOVASCULAR: Tachycardic 92 bpm with regular rhythm. RESPIRATORY: Abnormal breathing, but CTAB. GASTROINTESTINAL: Abdomen soft, non-tender, nondistended. Feeding tube present. NEUROLOGICAL: Awake and alert. Nods head to answer questions. PSYCHIATRIC: Stable affect. 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 Patient followed by neurology. Aphasic at baseline. Neurology following the patient Continue Imuran, prednisone EEG shows mild to moderate slowing at times of various depending on the epoch, there was no epileptic activity seen Continue PT/OT Palliative care following the patient and is still indicating the patient is making his own decisions, full code and full aggressive measures [place] as needed for pain. Sinus tachycardia: Improved. Lopressor 25 mg twice daily. TSH, free T3, free T4 were normal Melena, bright red blood in stool: Resolved Status post transfusion, emergently transferred [facility], emergent endoscopy GI evaluated and managed patient with emergent colonoscopy showing small ulcer in the colon Continue Prevacid Hemoglobin stable at 12.8 on 12/17. Sepsis, multiple episodes: Resolved at this time Patient does have rather significant coccyx decubitus wound: Wound culture with pseudo fluorescens/putida, group D enterococcus VRE which is sensitive to Zosyn. Patient did have one urine culture of Daphney parapsilosis, was treated with fluconazole for 10 days. --Patient had episode of diarrhea, C. difficile cultures performed which was negative. --Possible aseptic meningitis Infectious disease consulted and last seen the patient on 10/18/16, at that time it was indicated to observe off antibiotics. 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 Would benefit from long-term steroids. Hypotension: Improved this morning. Clinically stable. Afebrile. -Repeat BMP 12/25 with improvement. Nurse states patient is receiving approximately 200 cc of free water flushes every 4 hours. Prerenal azotemia: Improved. BUN decreased to 28. Continue to monitor renal function periodically. Hypernatremia and hyperchloremia: Improved. Continue free water flushes 200 cc every 4 hours Na elevated at 151 on 12/20 with Cl of 114. BMP 12/23 with improved Na and Cl of 146 and 110 respectively. Monitor periodically. 12/25: Na and Cl now within normal limits Diabetes: stable Glucose was well controlled so Accu-Cheks and sliding scale insulin were discontinued. 12/25: Random BGL 208 but although lab done this afternoon. HbA1c 6.6 on 09/25/16. Discussed with Dr. Bill. Will restart bedside Accu-checks and low dose SSI. Will monitor BGLs and add long acting insulin if needed. 12/26: BGLs good last night and this morning, not requiring SSI. Will continue to monitor BGLs throughout today. If remain good without SSI use, can likely discontinue once more. Decreased oral intake and dysphagia on initial presentation Speech therapy following intermittently. S/P barium swallow. Patient with severe dysphagia. GI consulted and PEG tube was placed. Dietary recommending Glucerna 1.5 at 70 mL/hour with Maury twice daily. Coccyx decubitus: Wound care nurse is following the patient for management.Recommends continuing to change dressings with Santyl ointment and cleansing with normal saline only. Apply nickly thick santyl ointment to slightly moistened maxorb II dressing loosely packed in wound bed and cover with bordered gauze, to be changed daily. Specialty bed Ankle ulcer: R lateral malleolus. -Foam boots. Wound care has evaluated; paint with skin prep or betadine and leave open to air. Depression: stable Patient was evaluated by psychiatrist. 12/20: Reevaluated by psychiatry. Prozac increased to 40 mg daily. Seroquel 50 mg added at night to help with mood and sleep. DVT Prophylaxis: Lovenox, TEDs/SCDs. Discharge Planning 12/12/16: Patient's income goes to court ordered child support making it difficult for placement as patient needs additional funds to offset what's not covered by Medicaid; CM is awaiting to speak with significant other in regards to returning home with care provided by family. 12/21/16: I spoke with Gustavo Louis, social work case manager, who is going to try to arrange for patient to be transported back to [place] to live with mother. Problem Qualifiers (1) GI bleed: Qualified Code: K92.2 - Gastrointestinal hemorrhage, unspecified gastrointestinal hemorrhage type (2) UTI (urinary tract infection): Qualified Code: N30.00 - Acute cystitis without hematuria (3) Effusion of hip joint: Qualified Code: M25.459 - Effusion of hip joint, unspecified laterality Mari Talamantes Dec 26, 2016 10:51
[2016-12-26 20:00] VITALS: BP 98/85; PULSE 82; RESP 16; TEMP 96.4; O2SAT 98
[2016-12-26] MEDS: QUEtiapine FUMARATE 25 MG TAB PO SCH (21:54)
[2016-12-27] MEDS: azaTHIOprine 50 MG TAB PEG SCH ×2 (05:33→08:44)
[2016-12-27] MEDS: INSULIN ASPART SUPPLEMENTAL SCALE SQ SCH (06:13)
[2016-12-27 08:00] VITALS: BP 90/75; PULSE 81; RESP 22; TEMP 95.8; O2SAT 96
[2016-12-27] MEDS: LANSOPRAZOLE SOLUTAB 30 MG TAB PEG SCH ×2 (08:44→21:20)
[2016-12-27] MEDS: ENOXAPARIN SODIUM 40 MG/0.4 ML SYRINGE SQ SCH (08:44)
[2016-12-27] MEDS: SENNOSIDES SYRUP 8.8 MG/5 ML CUP PEG SCH (08:44)
[2016-12-27] MEDS: FLUoxetine HCL LIQUID 20 MG/5 ML CUP PEG SCH (08:44)
[2016-12-27] MEDS: METOPROLOL TARTRATE 25 MG TAB PEG SCH ×2 (08:44→21:00)
[2016-12-27] MEDS: LACTOBACILLUS ACIDOPHILUS TAB PEG SCH ×2 (08:44→21:20)
[2016-12-27] MEDS: predniSONE 20 MG TAB PEG SCH (08:44)
[2016-12-27] MEDS: ACETAMINOPHEN/HYDROcodone 325 MG/5 MG TAB PEG PRN (08:45)
[2016-12-27] MEDS: COLLAGENASE OINT 30 GM TUBE TOP SCH (08:45)
[2016-12-27] MEDS: LACTIC ACID (AMMONIUM LACTATE) 12% LOTION 225 GM BTL TOPICAL SCH ×2 (08:45→21:36)
[2016-12-27] MEDS: JUVEN POWDER 1 PACK G-TUBE SCH ×2 (08:45→21:00)
--- NOTE | 2016-12-27 10:39 | HHI.PR ---
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 No change in clinical status as time. Case management indicating trying to arrange him to be transported back to [place] for family to take care of him. Objective Vitals Vital Signs Date Time Temp Pulse Resp B/P Pulse Ox O2 Delivery O2 Flow Rate FiO2 12/27/16 08:00 95.8 81 22 90/75 96 12/26/16 20:00 96.4 82 16 98/85 98 I/O 12/26/16 12/26/16 12/26/16 12/27/16 12/27/16 12/27/16 07:00 15:00 23:00 07:00 15:00 23:00 Intake Total 250 ml 2250 ml Output Total 200 ml 600 ml Balance -200 ml -350 ml 2250 ml Tube Feeding 1500 ml Other 250 ml 750 ml Output Urine Total 200 ml 600 ml Result Diagram: 12/25/16 1420 Objective Remarks GENERAL: Well-developed, cachectic and contracted. HEENT: Head is normocephalic without any lesions or masses noted. Facial features are symmetric. Eyes: Extraocular muscles are intact. Conjunctivae were clear. NECK: Supple without any masses. Trachea midline no deviation. No JVD, CARDIAC: Regular rhythm, tachycardia noted. S1/S2 are heard. No murmurs gallops or rubs. LUNGS: Clear to auscultation bilaterally. No wheeze, rhonchi or rales. No use of accessory muscles on inspiration or expiration. ABDOMEN: Soft, nontender. Nondistended. Bowel sounds heard in all 4 quadrants. No organomegaly or masses. Negative rebound, negative guarding. PEG tube noted without any excoriation. EXTREMITIES: No edema, pulses are equal bilaterally. No cyanosis or clubbing Procedures 07/19/16 EGD with PEG tube placement 09/27/16 colonoscopy Urinary Catheter: No Vascular Central Line Catheter: No A/P Assessment and Plan Neuro-Behcet, history of frontal lobe CVA, encephalopathy, history of meningitis , chronic No new changes on imaging. Patient was followed by neurology. Aphasic at baseline. Continue Imuran, prednisone EEG shows mild to moderate slowing at times of various depending on the epoch, there was no epileptic activity seen Continue PT/OT Palliative care following the patient and is still indicating the patient is making his own decisions, full code and full aggressive measures Sinus tachycardia. Stable Lopressor 25 mg twice daily. Held intermittently due to low blood pressure TSH, free T3, free T4 colon were normal Melena, bright red blood in stool, resolved Status post transfusion, emergency transferred to [facility], emergent endoscopy GI evaluated and managed patient with emergent colonoscopy showing small ulcer in the colon Continue Prevacid Sepsis, multiple episodes, resolved at this time Patient does have rather significant coccyx decubitus wound: Wound culture with pseudo fluorescens/putida, group D enterococcus VRE which is sensitive to Zosyn. Patient did have one urine culture of Daphney parapsilosis, was treated with fluconazole for 10 days. --Patient had episode of diarrhea, C. difficile cultures performed which was negative. --Possible aseptic meningitis Infectious disease consulted and last seen the patient on 10/18/16, at that time it was indicated to observe off antibiotics. 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 Would benefit from long-term steroids Prerenal azotemia, resolved Continue monitor renal function periodically Hypernatremia, resolved free water flushes 250 cc every 4 hours Monitor sodium level, BMP ordered for 12/20/16 Decreased oral intake and dysphagia on initial presentation Speech therapy following intermittently. S/P barium swallow. Patient with severe dysphagia. GI was consulted and PEG tube was placed. Dietary recommending Glucerna 1.5 at 70 mL's an hour with Maury twice daily, Continue continuous tube feeding until patient appears to be more nutritionally stable and then will evaluate for bolus feeding Coccyx decubitus. Wound care nurse is following the patient for management Patient with specialty bed Mood disorder, depression Patient was evaluated by psychiatrist. Psychiatrist recommended Prozac Reconsult psychiatry who increased Prozac and started patient on Seroquel Diabetes Glucose well controlled, discontinue Accu-Cheks and sliding scale insulin DVT Prophylaxis: Lovenox, TEDs/SCDs. Discharge Planning Case management for discharge planning Ede Richardson Dec 27, 2016 10:39
[2016-12-27 20:00] VITALS: BP 102/74; PULSE 92; RESP 16; TEMP 95.9; O2SAT 96
[2016-12-27] MEDS: QUEtiapine FUMARATE 25 MG TAB PO SCH (21:20)
[2016-12-28] MEDS: azaTHIOprine 50 MG TAB PEG SCH ×2 (05:54→17:10)
[2016-12-28 08:00] VITALS: BP 128/69; PULSE 77; RESP 18; TEMP 98; O2SAT 95
[2016-12-28] MEDS: JUVEN POWDER 1 PACK G-TUBE SCH ×2 (09:00→21:00)
[2016-12-28] MEDS: LACTIC ACID (AMMONIUM LACTATE) 12% LOTION 225 GM BTL TOPICAL SCH ×2 (09:00→21:24)
[2016-12-28] MEDS: COLLAGENASE OINT 30 GM TUBE TOP SCH (09:00)
[2016-12-28] MEDS: FLUoxetine HCL LIQUID 20 MG/5 ML CUP PEG SCH (10:07)
[2016-12-28] MEDS: LANSOPRAZOLE SOLUTAB 30 MG TAB PEG SCH ×2 (10:07→21:24)
[2016-12-28] MEDS: LACTOBACILLUS ACIDOPHILUS TAB PEG SCH ×2 (10:07→21:24)
[2016-12-28] MEDS: SENNOSIDES SYRUP 8.8 MG/5 ML CUP PEG SCH (10:07)
[2016-12-28] MEDS: ENOXAPARIN SODIUM 40 MG/0.4 ML SYRINGE SQ SCH (10:07)
[2016-12-28] MEDS: predniSONE 20 MG TAB PEG SCH (10:08)
[2016-12-28] MEDS: METOPROLOL TARTRATE 25 MG TAB PEG SCH ×2 (10:08→21:00)
--- NOTE | 2016-12-28 13:26 | HHI.PR ---
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 No change in clinical status. Awaiting case management to arrange discharge to [place] Objective Vitals Vital Signs Date Time Temp Pulse Resp B/P Pulse Ox O2 Delivery O2 Flow Rate FiO2 12/28/16 08:00 98.0 77 18 128/69 95 12/27/16 20:00 95.9 92 16 102/74 96 I/O 12/27/16 12/27/16 12/27/16 12/28/16 12/28/16 12/28/16 07:00 15:00 23:00 07:00 15:00 23:00 Intake Total 2250 ml 0 ml 0 ml 1320 ml Output Total 250 ml 400 ml 250 ml Balance 2250 ml -250 ml -400 ml 1070 ml Intake Oral 0 ml 0 ml 0 ml Tube Feeding 1500 ml 1120 ml Tube Irrigant 200 ml Other 750 ml Output Urine Total 250 ml 400 ml 250 ml # Bowel Movements 0 0 0 Result Diagram: 12/25/16 1420 Objective Remarks GENERAL: Well-developed, cachectic and contracted. HEENT: Head is normocephalic without any lesions or masses noted. Facial features are symmetric. Eyes: Extraocular muscles are intact. Conjunctivae were clear. NECK: Supple without any masses. Trachea midline no deviation. No JVD, CARDIAC: Regular rhythm, tachycardia noted. S1/S2 are heard. No murmurs gallops or rubs. LUNGS: Clear to auscultation bilaterally. No wheeze, rhonchi or rales. No use of accessory muscles on inspiration or expiration. ABDOMEN: Soft, nontender. Nondistended. Bowel sounds heard in all 4 quadrants. No organomegaly or masses. Negative rebound, negative guarding. PEG tube noted without any excoriation. EXTREMITIES: No edema, pulses are equal bilaterally. No cyanosis or clubbing Procedures 07/19/16 EGD with PEG tube placement 09/27/16 colonoscopy Urinary Catheter: No Vascular Central Line Catheter: No A/P Assessment and Plan Neuro-Behcet, history of frontal lobe CVA, encephalopathy, history of meningitis , chronic No new changes on imaging. Patient was followed by neurology. Aphasic at baseline. Continue Imuran, prednisone EEG shows mild to moderate slowing at times of various depending on the epoch, there was no epileptic activity seen Continue PT/OT Palliative care following the patient and is still indicating the patient is making his own decisions, full code and full aggressive measures Sinus tachycardia. Stable Lopressor 25 mg twice daily. Held intermittently due to low blood pressure TSH, free T3, free T4 colon were normal Melena, bright red blood in stool, resolved Status post transfusion, emergency transferred to [facility] hospital, emergent endoscopy GI evaluated and managed patient with emergent colonoscopy showing small ulcer in the colon Continue Prevacid Sepsis, multiple episodes, resolved at this time Patient does have rather significant coccyx decubitus wound: Wound culture with pseudo fluorescens/putida, group D enterococcus VRE which is sensitive to Zosyn. Patient did have one urine culture of Daphney parapsilosis, was treated with fluconazole for 10 days. --Patient had episode of diarrhea, C. difficile cultures performed which was negative. --Possible aseptic meningitis Infectious disease consulted and last seen the patient on 10/18/16, at that time it was indicated to observe off antibiotics. 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 Would benefit from long-term steroids Prerenal azotemia, resolved Continue monitor renal function periodically Hypernatremia, resolved free water flushes 250 cc every 4 hours Monitor sodium level, BMP ordered for 12/20/16 Decreased oral intake and dysphagia on initial presentation Speech therapy following intermittently. S/P barium swallow. Patient with severe dysphagia. GI was consulted and PEG tube was placed. Dietary recommending Glucerna 1.5 at 70 mL's an hour with Maury twice daily, Continue continuous tube feeding until patient appears to be more nutritionally stable and then will evaluate for bolus feeding Coccyx decubitus. Wound care nurse is following the patient for management Patient with specialty bed Mood disorder, depression Patient was evaluated by psychiatrist. Psychiatrist recommended Prozac Reconsult psychiatry who increased Prozac and started patient on Seroquel Diabetes Glucose well controlled, discontinue Accu-Cheks and sliding scale insulin DVT Prophylaxis: Lovenox, TEDs/SCDs. Discharge Planning Case management for discharge planning, recent records indicate that planning on transferring back to [place], however trying to obtain patient's passport in order to facilitate transfer Ede Richardson Dec 28, 2016 13:26
[2016-12-28 20:00] VITALS: BP 101/75; PULSE 91; RESP 22; TEMP 97.4; O2SAT 98
[2016-12-28] MEDS: QUEtiapine FUMARATE 25 MG TAB PO SCH (21:24)
[2016-12-29] MEDS: azaTHIOprine 50 MG TAB PEG SCH ×2 (05:21→17:49)
[2016-12-29 08:00] VITALS: BP 126/70; PULSE 80; RESP 18; TEMP 98; O2SAT 94
[2016-12-29] MEDS: SENNOSIDES SYRUP 8.8 MG/5 ML CUP PEG SCH (09:00)
[2016-12-29] MEDS: COLLAGENASE OINT 30 GM TUBE TOP SCH (09:00)
--- NOTE | 2016-12-29 09:15 | HHI.PR ---
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 Patient denies any new complaints. Patient does get excited about going back to [place]. Objective Vitals Vital Signs Date Time Temp Pulse Resp B/P Pulse Ox O2 Delivery O2 Flow Rate FiO2 12/28/16 20:00 97.4 91 22 101/75 98 I/O 12/28/16 12/28/16 12/28/16 12/29/16 12/29/16 12/29/16 07:00 15:00 23:00 07:00 15:00 23:00 Intake Total 1320 ml 1840 ml 660 ml Output Total 250 ml 350 ml 350 ml Balance 1070 ml -350 ml 1840 ml 310 ml Intake Oral 0 ml 0 ml Tube Feeding 1120 ml 1400 ml 560 ml Tube Irrigant 200 ml 440 ml 100 ml Output Urine Total 250 ml 350 ml 350 ml # Bowel Movements 0 1 1 Result Diagram: 12/25/16 1420 Objective Remarks GENERAL: Well-developed, cachectic and contracted. HEENT: Head is normocephalic without any lesions or masses noted. Facial features are symmetric. Eyes: Extraocular muscles are intact. Conjunctivae were clear. NECK: Supple without any masses. Trachea midline no deviation. No JVD, CARDIAC: Regular rhythm, tachycardia noted. S1/S2 are heard. No murmurs gallops or rubs. LUNGS: Clear to auscultation bilaterally. No wheeze, rhonchi or rales. No use of accessory muscles on inspiration or expiration. ABDOMEN: Soft, nontender. Nondistended. Bowel sounds heard in all 4 quadrants. No organomegaly or masses. Negative rebound, negative guarding. PEG tube noted without any excoriation. EXTREMITIES: No edema, pulses are equal bilaterally. No cyanosis or clubbing Procedures 07/19/16 EGD with PEG tube placement 09/27/16 colonoscopy Urinary Catheter: No Vascular Central Line Catheter: No A/P Assessment and Plan Neuro-Behcet, history of frontal lobe CVA, encephalopathy, history of meningitis , chronic No new changes on imaging. Patient was followed by neurology. Aphasic at baseline. Continue Imuran, prednisone EEG shows mild to moderate slowing at times of various depending on the epoch, there was no epileptic activity seen Continue PT/OT Palliative care following the patient and is still indicating the patient is making his own decisions, full code and full aggressive measures Sinus tachycardia. Stable Lopressor 25 mg twice daily. Held intermittently due to low blood pressure TSH, free T3, free T4 colon were normal Melena, bright red blood in stool, resolved Status post transfusion, emergency transferred to [facility], emergent endoscopy GI evaluated and managed patient with emergent colonoscopy showing small ulcer in the colon Continue Prevacid Sepsis, multiple episodes, resolved at this time Patient does have rather significant coccyx decubitus wound: Wound culture with pseudo fluorescens/putida, group D enterococcus VRE which is sensitive to Zosyn. Patient did have one urine culture of Daphney parapsilosis, was treated with fluconazole for 10 days. --Patient had episode of diarrhea, C. difficile cultures performed which was negative. --Possible aseptic meningitis Infectious disease consulted and last seen the patient on 10/18/16, at that time it was indicated to observe off antibiotics. 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 Would benefit from long-term steroids Prerenal azotemia, resolved Continue monitor renal function periodically Hypernatremia, resolved free water flushes 250 cc every 4 hours Monitor sodium level, BMP ordered for 12/20/16 Decreased oral intake and dysphagia on initial presentation Speech therapy following intermittently. S/P barium swallow. Patient with severe dysphagia. GI was consulted and PEG tube was placed. Dietary recommending Glucerna 1.5 at 70 mL's an hour with Maury twice daily, Continue continuous tube feeding until patient appears to be more nutritionally stable and then will evaluate for bolus feeding Coccyx decubitus. Wound care nurse is following the patient for management Patient with specialty bed Mood disorder, depression Patient was evaluated by psychiatrist. Psychiatrist recommended Prozac Reconsult psychiatry who increased Prozac and started patient on Seroquel Diabetes Glucose well controlled, discontinue Accu-Cheks and sliding scale insulin DVT Prophylaxis: Lovenox, TEDs/SCDs. Discharge Planning Case management for discharge planning, recent records indicate that planning on transferring back to [place], however trying to obtain patient's passport in order to facilitate transfer Ede Richardson Dec 29, 2016 09:15
[2016-12-29] MEDS: FLUoxetine HCL LIQUID 20 MG/5 ML CUP PEG SCH (09:40)
[2016-12-29] MEDS: predniSONE 20 MG TAB PEG SCH (09:40)
[2016-12-29] MEDS: LACTOBACILLUS ACIDOPHILUS TAB PEG SCH ×2 (09:41→22:04)
[2016-12-29] MEDS: ENOXAPARIN SODIUM 40 MG/0.4 ML SYRINGE SQ SCH (09:41)
[2016-12-29] MEDS: LANSOPRAZOLE SOLUTAB 30 MG TAB PEG SCH ×2 (09:41→22:04)
[2016-12-29] MEDS: METOPROLOL TARTRATE 25 MG TAB PEG SCH ×2 (09:41→22:04)
[2016-12-29] MEDS: LACTIC ACID (AMMONIUM LACTATE) 12% LOTION 225 GM BTL TOPICAL SCH ×2 (09:43→22:05)
[2016-12-29] MEDS: JUVEN POWDER 1 PACK G-TUBE SCH ×2 (09:44→21:00)
[2016-12-29 20:00] VITALS: BP 102/74; PULSE 91; RESP 16; TEMP 97.1; O2SAT 96
[2016-12-29] MEDS: QUEtiapine FUMARATE 25 MG TAB PO SCH (22:04)
[2016-12-30] MEDS: azaTHIOprine 50 MG TAB PEG SCH ×2 (06:00→14:39)
[2016-12-30] MEDS: ACETAMINOPHEN/HYDROcodone 325 MG/5 MG TAB PEG PRN ×2 (06:47→21:23)
[2016-12-30 08:00] VITALS: BP 108/71; PULSE 80; RESP 18; TEMP 96.7; O2SAT 95
[2016-12-30] MEDS: predniSONE 20 MG TAB PEG SCH (08:01)
[2016-12-30] MEDS: FLUoxetine HCL LIQUID 20 MG/5 ML CUP PEG SCH (08:01)
[2016-12-30] MEDS: LANSOPRAZOLE SOLUTAB 30 MG TAB PEG SCH ×2 (08:01→21:22)
[2016-12-30] MEDS: JUVEN POWDER 1 PACK G-TUBE SCH ×2 (08:01→21:00)
[2016-12-30] MEDS: METOPROLOL TARTRATE 25 MG TAB PEG SCH ×2 (08:01→21:23)
[2016-12-30] MEDS: LACTOBACILLUS ACIDOPHILUS TAB PEG SCH ×2 (08:01→21:23)
[2016-12-30] MEDS: SENNOSIDES SYRUP 8.8 MG/5 ML CUP PEG SCH (08:01)
[2016-12-30] MEDS: ENOXAPARIN SODIUM 40 MG/0.4 ML SYRINGE SQ SCH (08:01)
[2016-12-30] MEDS: LACTIC ACID (AMMONIUM LACTATE) 12% LOTION 225 GM BTL TOPICAL SCH ×2 (08:02→21:23)
[2016-12-30] MEDS: COLLAGENASE OINT 30 GM TUBE TOP SCH (08:02)
--- NOTE | 2016-12-30 08:15 | HHI.PR ---
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 Patient appears to be doing well today. Denies any new complaints. No change in clinical status Objective Vitals Vital Signs Date Time Temp Pulse Resp B/P Pulse Ox O2 Delivery O2 Flow Rate FiO2 12/29/16 20:00 97.1 91 16 102/74 96 I/O 12/29/16 12/29/16 12/29/16 12/30/16 12/30/16 12/30/16 07:00 15:00 23:00 07:00 15:00 23:00 Intake Total 660 ml 660 ml 940 ml 660 ml Output Total 350 ml 400 ml 1500 ml Balance 310 ml 260 ml 940 ml -840 ml Intake Oral 0 ml Tube Feeding 560 ml 560 ml 840 ml 560 ml Tube Irrigant 100 ml 100 ml 100 ml 100 ml Output Urine Total 350 ml 400 ml 1500 ml # Bowel Movements 1 2 Objective Remarks GENERAL: Well-developed, cachectic and contracted. HEENT: Head is normocephalic without any lesions or masses noted. Facial features are symmetric. Eyes: Extraocular muscles are intact. Conjunctivae were clear. NECK: Supple without any masses. Trachea midline no deviation. No JVD, CARDIAC: Regular rhythm, tachycardia noted. S1/S2 are heard. No murmurs gallops or rubs. LUNGS: Clear to auscultation bilaterally. No wheeze, rhonchi or rales. No use of accessory muscles on inspiration or expiration. ABDOMEN: Soft, nontender. Nondistended. Bowel sounds heard in all 4 quadrants. No organomegaly or masses. Negative rebound, negative guarding. PEG tube noted without any excoriation. EXTREMITIES: No edema, pulses are equal bilaterally. No cyanosis or clubbing Procedures 07/19/16 EGD with PEG tube placement 09/27/16 colonoscopy Urinary Catheter: No Vascular Central Line Catheter: No A/P Assessment and Plan Neuro-Behcet, history of frontal lobe CVA, encephalopathy, history of meningitis , chronic No new changes on imaging. Patient was followed by neurology. Aphasic at baseline. Continue Imuran, prednisone EEG shows mild to moderate slowing at times of various depending on the epoch, there was no epileptic activity seen Continue PT/OT Palliative care evaluated the patient and is still indicating the patient is making his own decisions, full code and full aggressive measures Sinus tachycardia. Stable Lopressor 25 mg twice daily. Held intermittently due to low blood pressure TSH, free T3, free T4 colon were normal Melena, bright red blood in stool, resolved Status post transfusion, emergency transferred to [facility], emergent endoscopy GI evaluated and managed patient with emergent colonoscopy showing small ulcer in the colon Continue Prevacid Sepsis, multiple episodes, resolved at this time Patient does have rather significant coccyx decubitus wound: Wound culture with pseudo fluorescens/putida, group D enterococcus VRE which is sensitive to Zosyn. Patient did have one urine culture of Daphney parapsilosis, was treated with fluconazole for 10 days. --Patient had episode of diarrhea, C. difficile cultures performed which was negative. --Possible aseptic meningitis Infectious disease consulted and last seen the patient on 10/18/16, at that time it was indicated to observe off antibiotics. 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 Would benefit from long-term steroids Prerenal azotemia, resolved Continue monitor renal function periodically Hypernatremia, resolved free water flushes 250 cc every 4 hours Monitor sodium level, BMP ordered for 12/20/16 Decreased oral intake and dysphagia on initial presentation Speech therapy following intermittently. S/P barium swallow. Patient with severe dysphagia. GI was consulted and PEG tube was placed. Dietary recommending Glucerna 1.5 at 70 mL's an hour with Maury twice daily, Continue continuous tube feeding until patient appears to be more nutritionally stable and then will evaluate for bolus feeding Coccyx decubitus. Wound care nurse is following the patient for management Patient with specialty bed Mood disorder, depression Patient was evaluated by psychiatrist. Psychiatrist recommended Prozac Reconsult psychiatry who increased Prozac and started patient on Seroquel Diabetes Glucose well controlled, discontinue Accu-Cheks and sliding scale insulin DVT Prophylaxis: Lovenox, TEDs/SCDs. Records reviewed, no change in clinical status, no change in treatment plan Discharge Planning Case management for discharge planning, recent records indicate that planning on transferring back to [place], however trying to obtain patient's passport in order to facilitate transfer Ede Richardson Dec 30, 2016 08:15
--- NOTE | 2016-12-30 10:32 | PD.WCN.NOT ---
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 Removed bordered gauze dressing in place to reveal wound to sacrococcygeal area.Sacrococcygeal wound bed noted with 100% coverage beefy red granulation tissue that appears to be granulating upwards toward surface of skin.Wound noted with minimal serous drainage. Wound appears slightly improved from previous assessment. Wound measurements are as follows: 2.6cm x 0.9cm x 0.8cm. Undermining noted from 7 to 1 o'clock at 1 cm at the deepest. New epithelial tissue noted at wound margins.Periwound assessed with scar tissue but otherwise unremarkable. Cleansed wound with normal saline and applied Santyl Ointment with luis thick coverage to loosely packed slightly moistened Maxorb II dressing into wound bed.Covered wound with dry cover dressing Removed bordered gauze dressing to R ankle to reveal open wound over R lateral malleolus. Wound presents with ~40% yellow adherent slough and 50% Clean red non granulation tissue.Wound is still noted as an unstageable pressure injury.Wound has minimal sero-sanguinous drainage. Periwound is noted with scar tissue, but otherwise unremarkable. Wound margins assessed with new epithelial tissue. Wound measurements are as follows 1.5 x 1.6 x slough. Cleansed wound with normal saline and applied luis thick coverage of Santyl ointment and covered with adhesive foam dressing Wound care will continue to follow patient weekly. Communicated with: APRYL Schwarz Recommendation: Recommend to continue dressing changes with Santyl and Maxorb II to sacral/ coccyx area, cleansing wound with normal saline only. Also continue Santyl and adhesive foam dressing to R lateral malleolus wound.Do not use wound cleanser with Santyl. Cleanse wound with normal saline only. Arleen Gibbs [facility] Dec 30, 2016 10:32
[2016-12-30 20:00] VITALS: BP 101/89; PULSE 84; RESP 20; TEMP 97; O2SAT 97
[2016-12-30] MEDS: HYOSCYAMINE SOLN 0.125 MG/ML 15 ML BTL PEG PRN (21:22)
[2016-12-30] MEDS: QUEtiapine FUMARATE 25 MG TAB PO SCH (21:23)
[2016-12-31] MEDS: azaTHIOprine 50 MG TAB PEG SCH ×2 (05:53→09:02)
[2016-12-31] MEDS: ACETAMINOPHEN/HYDROcodone 325 MG/5 MG TAB PEG PRN ×2 (05:53→16:55)
[2016-12-31 08:00] VITALS: BP 104/78; PULSE 89; RESP 20; TEMP 98.4; O2SAT 97
--- NOTE | 2016-12-31 08:56 | HHI.PR ---
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 Patient lying in bed comfortable. Denies any new complaints. No change in clinical status. Objective Vitals Vital Signs Date Time Temp Pulse Resp B/P Pulse Ox O2 Delivery O2 Flow Rate FiO2 12/30/16 20:00 97.0 84 20 101/89 97 I/O 12/30/16 12/30/16 12/30/16 12/31/16 12/31/16 12/31/16 07:00 15:00 23:00 07:00 15:00 23:00 Intake Total 660 ml 660 ml 660 ml Output Total 1500 ml 1500 ml 250 ml Balance -840 ml -840 ml 410 ml Tube Feeding 560 ml 560 ml 560 ml Tube Irrigant 100 ml 100 ml 100 ml Output Urine Total 1500 ml 1500 ml 250 ml Stool Total 0 ml # Bowel Movements 2 0 Objective Remarks GENERAL: Well-developed, cachectic and contracted. HEENT: Head is normocephalic without any lesions or masses noted. Facial features are symmetric. Eyes: Extraocular muscles are intact. Conjunctivae were clear. NECK: Supple without any masses. Trachea midline no deviation. No JVD, CARDIAC: Regular rhythm, tachycardia noted. S1/S2 are heard. No murmurs gallops or rubs. LUNGS: Clear to auscultation bilaterally. No wheeze, rhonchi or rales. No use of accessory muscles on inspiration or expiration. ABDOMEN: Soft, nontender. Nondistended. Bowel sounds heard in all 4 quadrants. No organomegaly or masses. Negative rebound, negative guarding. PEG tube noted without any excoriation. EXTREMITIES: No edema, pulses are equal bilaterally. No cyanosis or clubbing Procedures 07/19/16 EGD with PEG tube placement 09/27/16 colonoscopy Urinary Catheter: No Vascular Central Line Catheter: No A/P Assessment and Plan Neuro-Behcet, history of frontal lobe CVA, encephalopathy, history of meningitis , chronic No new changes on imaging. Patient was followed by neurology. Aphasic at baseline. Continue Imuran, prednisone EEG shows mild to moderate slowing at times of various depending on the epoch, there was no epileptic activity seen Continue PT/OT Palliative care evaluated the patient and is still indicating the patient is making his own decisions, full code and full aggressive measures Sinus tachycardia. Stable Lopressor 25 mg twice daily. Held intermittently due to low blood pressure TSH, free T3, free T4 colon were normal Melena, bright red blood in stool, resolved Status post transfusion, emergency transferred to [facility] hospital, emergent endoscopy GI evaluated and managed patient with emergent colonoscopy showing small ulcer in the colon Continue Prevacid Sepsis, multiple episodes, resolved at this time Patient does have rather significant coccyx decubitus wound: Wound culture with pseudo fluorescens/putida, group D enterococcus VRE which is sensitive to Zosyn. Patient did have one urine culture of Daphney parapsilosis, was treated with fluconazole for 10 days. --Patient had episode of diarrhea, C. difficile cultures performed which was negative. --Possible aseptic meningitis Infectious disease consulted and last seen the patient on 10/18/16, at that time it was indicated to observe off antibiotics. 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 Would benefit from long-term steroids Prerenal azotemia, resolved Continue monitor renal function periodically Hypernatremia, resolved free water flushes 250 cc every 4 hours Monitor sodium level, BMP ordered for 12/20/16 Decreased oral intake and dysphagia on initial presentation Speech therapy following intermittently. S/P barium swallow. Patient with severe dysphagia. GI was consulted and PEG tube was placed. Dietary recommending Glucerna 1.5 at 70 mL's an hour with Maury twice daily, Continue continuous tube feeding until patient appears to be more nutritionally stable and then will evaluate for bolus feeding Coccyx decubitus. Wound care nurse is following the patient for management Patient with specialty bed Mood disorder, depression Patient was evaluated by psychiatrist. Psychiatrist recommended Prozac Reconsult psychiatry who increased Prozac and started patient on Seroquel Diabetes Glucose well controlled, discontinue Accu-Cheks and sliding scale insulin DVT Prophylaxis: Lovenox, TEDs/SCDs. Records reviewed, no change in clinical status, no change in treatment plan Discharge Planning Case management for discharge planning, recent records indicate that planning on transferring back to [place], however trying to obtain patient's passport in order to facilitate transfer Ede Richardson Dec 31, 2016 08:56
[2016-12-31] MEDS: LACTOBACILLUS ACIDOPHILUS TAB PEG SCH ×2 (09:00→20:27)
[2016-12-31] MEDS: predniSONE 20 MG TAB PEG SCH (09:00)
[2016-12-31] MEDS: ENOXAPARIN SODIUM 40 MG/0.4 ML SYRINGE SQ SCH (09:00)
[2016-12-31] MEDS: SENNOSIDES SYRUP 8.8 MG/5 ML CUP PEG SCH (09:00)
[2016-12-31] MEDS: LANSOPRAZOLE SOLUTAB 30 MG TAB PEG SCH ×2 (09:00→20:27)
[2016-12-31] MEDS: FLUoxetine HCL LIQUID 20 MG/5 ML CUP PEG SCH (09:00)
[2016-12-31] MEDS: METOPROLOL TARTRATE 25 MG TAB PEG SCH ×2 (09:00→20:27)
[2016-12-31] MEDS: COLLAGENASE OINT 30 GM TUBE TOP SCH (09:00)
[2016-12-31] MEDS: LACTIC ACID (AMMONIUM LACTATE) 12% LOTION 225 GM BTL TOPICAL SCH ×2 (09:00→20:28)
[2016-12-31] MEDS: JUVEN POWDER 1 PACK G-TUBE SCH ×2 (09:00→20:28)
[2016-12-31 20:00] VITALS: BP 106/78; PULSE 78; RESP 14; TEMP 96; O2SAT 96
[2016-12-31] MEDS: QUEtiapine FUMARATE 25 MG TAB PO SCH (20:27)
[2017-01-01] MEDS: azaTHIOprine 50 MG TAB PEG SCH ×2 (05:24→07:33)
[2017-01-01] MEDS: predniSONE 20 MG TAB PEG SCH (07:33)
[2017-01-01] MEDS: LANSOPRAZOLE SOLUTAB 30 MG TAB PEG SCH ×2 (07:33→20:32)
[2017-01-01] MEDS: LACTOBACILLUS ACIDOPHILUS TAB PEG SCH ×2 (07:33→20:32)
[2017-01-01] MEDS: ACETAMINOPHEN/HYDROcodone 325 MG/5 MG TAB PEG PRN (07:33)
[2017-01-01] MEDS: FLUoxetine HCL LIQUID 20 MG/5 ML CUP PEG SCH (07:33)
[2017-01-01] MEDS: METOPROLOL TARTRATE 25 MG TAB PEG SCH ×3 (07:33→20:31)
[2017-01-01] MEDS: JUVEN POWDER 1 PACK G-TUBE SCH ×2 (07:34→20:42)
[2017-01-01] MEDS: LACTIC ACID (AMMONIUM LACTATE) 12% LOTION 225 GM BTL TOPICAL SCH ×2 (07:34→20:33)
[2017-01-01] MEDS: SENNOSIDES SYRUP 8.8 MG/5 ML CUP PEG SCH (07:34)
[2017-01-01] MEDS: COLLAGENASE OINT 30 GM TUBE TOP SCH (07:34)
[2017-01-01] MEDS: ENOXAPARIN SODIUM 40 MG/0.4 ML SYRINGE SQ SCH (07:34)
[2017-01-01 08:00] VITALS: BP 83/70; PULSE 108; RESP 20; TEMP 98.1; O2SAT 95
--- NOTE | 2017-01-01 10:50 | HHI.PR ---
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 Patient is a be comfortable. Denies any new complaints. No change in clinical status. Objective Vitals Vital Signs Date Time Temp Pulse Resp B/P Pulse Ox O2 Delivery O2 Flow Rate FiO2 01/01/17 08:00 98.1 108 20 83/70 95 12/31/16 20:00 96.0 78 14 106/78 96 I/O 12/31/16 12/31/16 12/31/16 01/01/17 01/01/17 01/01/17 07:00 15:00 23:00 07:00 15:00 23:00 Intake Total 660 ml 0 ml Output Total 250 ml 625 ml 200 ml Balance 410 ml -625 ml -200 ml Intake Oral 0 ml Tube Feeding 560 ml Tube Irrigant 100 ml Output Urine Total 250 ml 625 ml 200 ml # Bowel Movements 0 0 Objective Remarks GENERAL: Well-developed, cachectic and contracted. HEENT: Head is normocephalic without any lesions or masses noted. Facial features are symmetric. Eyes: Extraocular muscles are intact. Conjunctivae were clear. NECK: Supple without any masses. Trachea midline no deviation. No JVD, CARDIAC: Regular rhythm, tachycardia noted. S1/S2 are heard. No murmurs gallops or rubs. LUNGS: Clear to auscultation bilaterally. No wheeze, rhonchi or rales. No use of accessory muscles on inspiration or expiration. ABDOMEN: Soft, nontender. Nondistended. Bowel sounds heard in all 4 quadrants. No organomegaly or masses. Negative rebound, negative guarding. PEG tube noted without any excoriation. EXTREMITIES: No edema, pulses are equal bilaterally. No cyanosis or clubbing Procedures 07/19/16 EGD with PEG tube placement 09/27/16 colonoscopy Urinary Catheter: No Vascular Central Line Catheter: No A/P Assessment and Plan Neuro-Behcet, history of frontal lobe CVA, encephalopathy, history of meningitis , chronic No new changes on imaging. Patient was followed by neurology. Aphasic at baseline. Continue Imuran, prednisone EEG shows mild to moderate slowing at times of various depending on the epoch, there was no epileptic activity seen Continue PT/OT Palliative care evaluated the patient and is still indicating the patient is making his own decisions, full code and full aggressive measures Sinus tachycardia. Stable Lopressor 12.5 mg twice daily. Held intermittently due to low blood pressure TSH, free T3, free T4 colon were normal Melena, bright red blood in stool, resolved Status post transfusion, emergency transferred to [facility] hospital, emergent endoscopy GI evaluated and managed patient with emergent colonoscopy showing small ulcer in the colon Continue Prevacid Sepsis, multiple episodes, resolved at this time Patient does have rather significant coccyx decubitus wound: Wound culture with pseudo fluorescens/putida, group D enterococcus VRE which is sensitive to Zosyn. Patient did have one urine culture of Daphney parapsilosis, was treated with fluconazole for 10 days. --Patient had episode of diarrhea, C. difficile cultures performed which was negative. --Possible aseptic meningitis Infectious disease consulted and last seen the patient on 10/18/16, at that time it was indicated to observe off antibiotics. 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 Would benefit from long-term steroids Prerenal azotemia, resolved Continue monitor renal function periodically Hypernatremia, resolved free water flushes 250 cc every 4 hours Monitor sodium level, BMP ordered for 12/20/16 Decreased oral intake and dysphagia on initial presentation Speech therapy following intermittently. S/P barium swallow. Patient with severe dysphagia. GI was consulted and PEG tube was placed. Dietary recommending Glucerna 1.5 at 70 mL's an hour with Maury twice daily, Continue continuous tube feeding until patient appears to be more nutritionally stable and then will evaluate for bolus feeding Coccyx decubitus. Wound care nurse is following the patient for management Patient with specialty bed Mood disorder, depression Patient was evaluated by psychiatrist. Psychiatrist recommended Prozac Reconsult psychiatry who increased Prozac and started patient on Seroquel Diabetes Glucose well controlled, discontinue Accu-Cheks and sliding scale insulin DVT Prophylaxis: Lovenox, TEDs/SCDs. Records reviewed, no change in clinical status, no change in treatment plan Discharge Planning Case management for discharge planning, recent records indicate that planning on transferring back to [place], however trying to obtain patient's passport in order to facilitate transfer Ede Richardson Jan 01, 2017 10:50
[2017-01-01 20:00] VITALS: BP 98/81; PULSE 87; RESP 18; TEMP 97.6; O2SAT 97
[2017-01-01] MEDS: QUEtiapine FUMARATE 25 MG TAB PO SCH (20:32)
[2017-01-02] MEDS: azaTHIOprine 50 MG TAB PEG SCH ×2 (05:52→17:59)
[2017-01-02 06:06] LABS: AUTOMATED NEUTROPHIL # 7.2 TH/MM3 (1.8-7.7); BASOPHIL % 0.4 % (0.0-2.0); EOSINOPHIL # 0.1 TH/MM3 (0-0.4); EOSINOPHIL % 0.7 % (0.0-4.0); HEMATOCRIT 34.9 % (39.0-51.0); HEMOGLOBIN 11.4 GM/DL (13.0-17.0); LYMPH % 15.5 % (9.0-44.0); LYMPHOCYTE # 1.5 TH/MM3 (1.0-4.8); MEAN CELL VOLUME 90.8 FL (80.0-100.0); MEAN CORPUSCULAR HEMOGLOBIN 29.8 PG (27.0-34.0); MEAN CORPUSCULAR HGB CONC 32.8 % (32.0-36.0); MEAN PLATELET VOLUME 10.5 FL (7.0-11.0); MONOCYTE # 0.6 TH/MM3 (0-0.9); NEUT % 77.4 % (16.0-70.0); PLATELET COUNT 255 TH/MM3 (150-450); RED BLOOD COUNT 3.84 MIL/MM3 (4.50-5.90); RED CELL DISTRIBUTION WIDTH 15.4 % (11.6-17.2); WHITE BLOOD COUNT 9.4 TH/MM3 (4.0-11.0)
[2017-01-02 06:22] LABS: CALCIUM 9.1 MG/DL (8.5-10.1)
[2017-01-02 06:23] LABS: BICARBONATE 30.1 MEQ/L (21.0-32.0); MAGNESIUM 2.1 MG/DL (1.5-2.5)
[2017-01-02 06:26] LABS: CREATININE 0.58 MG/DL (0.60-1.30)
[2017-01-02] MEDS: LANSOPRAZOLE SOLUTAB 30 MG TAB PEG SCH ×2 (07:24→20:25)
[2017-01-02] MEDS: LACTOBACILLUS ACIDOPHILUS TAB PEG SCH ×2 (07:24→20:25)
[2017-01-02] MEDS: COLLAGENASE OINT 30 GM TUBE TOP SCH (07:25)
[2017-01-02] MEDS: LACTIC ACID (AMMONIUM LACTATE) 12% LOTION 225 GM BTL TOPICAL SCH ×2 (07:25→20:28)
[2017-01-02] MEDS: predniSONE 20 MG TAB PEG SCH (07:25)
[2017-01-02] MEDS: ENOXAPARIN SODIUM 40 MG/0.4 ML SYRINGE SQ SCH (07:25)
[2017-01-02] MEDS: SENNOSIDES SYRUP 8.8 MG/5 ML CUP PEG SCH (07:25)
[2017-01-02] MEDS: FLUoxetine HCL LIQUID 20 MG/5 ML CUP PEG SCH (07:25)
[2017-01-02] MEDS: JUVEN POWDER 1 PACK G-TUBE SCH ×2 (07:25→20:25)
[2017-01-02] MEDS: METOPROLOL TARTRATE 25 MG TAB PEG SCH (07:31)
[2017-01-02 08:00] VITALS: BP 93/67; PULSE 86; RESP 23; TEMP 95.7; O2SAT 97
--- NOTE | 2017-01-02 09:14 | HHI.PR ---
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 Patient indicates that he been having some dry eyes with some blurred vision. Otherwise no new complaints. Objective Vitals Vital Signs Date Time Temp Pulse Resp B/P Pulse Ox O2 Delivery O2 Flow Rate FiO2 01/02/17 08:00 95.7 86 23 93/67 97 01/01/17 20:00 97.6 87 18 98/81 97 I/O 01/01/17 01/01/17 01/01/17 01/02/17 01/02/17 01/02/17 07:00 15:00 23:00 07:00 15:00 23:00 Intake Total 1800 ml 840 ml Output Total 200 ml 1050 ml 150 ml Balance -200 ml 750 ml 690 ml Tube Feeding 1050 ml 720 ml Other 750 ml 120 ml Output Urine Total 200 ml 1050 ml 150 ml # Bowel Movements 0 0 1 Result Diagram: 01/02/17 0455 01/02/17 0455 Objective Remarks GENERAL: Well-developed, cachectic and contracted. HEENT: Head is normocephalic without any lesions or masses noted. Facial features are symmetric. Eyes: Extraocular muscles are intact. Conjunctivae were clear. NECK: Supple without any masses. Trachea midline no deviation. No JVD, CARDIAC: Regular rhythm, tachycardia noted. S1/S2 are heard. No murmurs gallops or rubs. LUNGS: Clear to auscultation bilaterally. No wheeze, rhonchi or rales. No use of accessory muscles on inspiration or expiration. ABDOMEN: Soft, nontender. Nondistended. Bowel sounds heard in all 4 quadrants. No organomegaly or masses. Negative rebound, negative guarding. PEG tube noted without any excoriation. EXTREMITIES: No edema, pulses are equal bilaterally. No cyanosis or clubbing Procedures 07/19/16 EGD with PEG tube placement 09/27/16 colonoscopy Urinary Catheter: No Vascular Central Line Catheter: No A/P Assessment and Plan Neuro-Behcet, history of frontal lobe CVA, encephalopathy, history of meningitis , chronic No new changes on imaging. Patient was followed by neurology. Aphasic at baseline. Continue Imuran, prednisone EEG shows mild to moderate slowing at times of various depending on the epoch, there was no epileptic activity seen Continue PT/OT Palliative care evaluated the patient and is still indicating the patient is making his own decisions, full code and full aggressive measures Sinus tachycardia. Stable Discontinue Lopressor 12.5 mg twice daily. Held intermittently due to low blood pressure TSH, free T3, free T4 colon were normal Melena, bright red blood in stool, resolved Status post transfusion, emergency transferred to [facility] hospital, emergent endoscopy GI evaluated and managed patient with emergent colonoscopy showing small ulcer in the colon Continue Prevacid Sepsis, multiple episodes, resolved at this time Patient does have rather significant coccyx decubitus wound: Wound culture with pseudo fluorescens/putida, group D enterococcus VRE which is sensitive to Zosyn. Patient did have one urine culture of Daphney parapsilosis, was treated with fluconazole for 10 days. --Patient had episode of diarrhea, C. difficile cultures performed which was negative. --Possible aseptic meningitis Infectious disease consulted and last seen the patient on 10/18/16, at that time it was indicated to observe off antibiotics. 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 Would benefit from long-term steroids Prerenal azotemia, resolved Continue monitor renal function periodically Hypernatremia, resolved free water flushes 250 cc every 4 hours Monitor sodium level, BMP ordered for 12/20/16 Decreased oral intake and dysphagia on initial presentation Speech therapy following intermittently. S/P barium swallow. Patient with severe dysphagia. GI was consulted and PEG tube was placed. Dietary recommending Glucerna 1.5 at 70 mL's an hour with Maury twice daily, Continue continuous tube feeding until patient appears to be more nutritionally stable and then will evaluate for bolus feeding Coccyx decubitus. Wound care nurse is following the patient for management Patient with specialty bed Mood disorder, depression Patient was evaluated by psychiatrist. Psychiatrist recommended Prozac Reconsult psychiatry who increased Prozac and started patient on Seroquel Diabetes Glucose well controlled, DVT Prophylaxis: Lovenox, TEDs/SCDs. Discharge Planning Case management for discharge planning, recent records indicate that planning on transferring back to [place], however trying to obtain patient's passport in order to facilitate transfer Ede Richardson Jan 02, 2017 09:14
[2017-01-02 20:00] VITALS: BP 108/75; PULSE 72; RESP 22; TEMP 97.5; O2SAT 98
[2017-01-02] MEDS: QUEtiapine FUMARATE 25 MG TAB PO SCH (20:25)
[2017-01-02] MEDS: ARTIFICIAL TEARS OPTH SOLN 15 ML BTL EACH EYE PRN (20:25)
[2017-01-03] MEDS: azaTHIOprine 50 MG TAB PEG SCH ×2 (05:36→16:46)
[2017-01-03 08:00] VITALS: BP 104/69; PULSE 98; RESP 20; TEMP 98.4; O2SAT 97
[2017-01-03] MEDS: SENNOSIDES SYRUP 8.8 MG/5 ML CUP PEG SCH (10:43)
[2017-01-03] MEDS: JUVEN POWDER 1 PACK G-TUBE SCH ×2 (10:43→21:09)
[2017-01-03] MEDS: FLUoxetine HCL LIQUID 20 MG/5 ML CUP PEG SCH (10:43)
[2017-01-03] MEDS: LANSOPRAZOLE SOLUTAB 30 MG TAB PEG SCH ×2 (10:44→21:09)
[2017-01-03] MEDS: predniSONE 20 MG TAB PEG SCH (10:44)
[2017-01-03] MEDS: ENOXAPARIN SODIUM 40 MG/0.4 ML SYRINGE SQ SCH (10:44)
[2017-01-03] MEDS: LACTOBACILLUS ACIDOPHILUS TAB PEG SCH ×2 (10:44→21:08)
[2017-01-03] MEDS: LACTIC ACID (AMMONIUM LACTATE) 12% LOTION 225 GM BTL TOPICAL SCH ×2 (10:45→21:09)
[2017-01-03] MEDS: ARTIFICIAL TEARS OPTH SOLN 15 ML BTL EACH EYE PRN (10:45)
[2017-01-03] MEDS: COLLAGENASE OINT 30 GM TUBE TOP SCH (10:45)
--- NOTE | 2017-01-03 11:56 | PD.WCN.NOT ---
Wound Consult Description: Sacral/coccyx stage 4 and R lateral Malleolus unstageable Communicated with: SHIRLENE Brown Recommendation: Recommend to continue dressing changes with Santyl and Maxorb II to sacral/ coccyx area, cleansing wound with normal saline only. Also may change dressing to Lateral R malleolus with Maxorb II and Santyl secured with dry cover dressing changed daily.Please cleanse wounds with normal saline only when using Santyl. 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 Removed bordered gauze and calcium alginate dressing in place to reveal wound to sacrococcygeal area.Sacrococcygeal wound bed noted with 100% coverage pale red granulation tissue that appears to be granulating upwards toward surface of skin.Wound noted with minimal serous drainage. Wound appears slightly improved from previous assessment. Wound measurements are as follows: 2.6cm x 0.9cm x 0.6cm. Undermining noted from 10 to 1o'clock at 0.8 cm at the deepest. New epithelial tissue noted at wound margins.Periwound assessed with scar tissue but otherwise unremarkable. Cleansed wound with normal saline and applied Santyl Ointment with luis thick coverage to loosely packed slightly moistened Maxorb II dressing into wound bed.Covered wound with dry cover dressing Removed bordered gauze and calcium alginate dressing to R ankle to reveal open wound over R lateral malleolus. Wound presents with ~30% yellow adherent slough and 70% Clean red non granulation tissue.Wound is still noted as an unstageable pressure injury due to presence of slough.Wound has minimal sero-sanguinous drainage without odor. Periwound is noted with scar tissue, but otherwise unremarkable. Wound margins assessed with new epithelial tissue and maceration between 5 and 8 o'clock.Wound measurements are as follows 1.5x 1.6 x slough. Cleansed wound with normal saline and applied luis thick coverage of Santyl ointment and covered with adhesive foam dressing Wound care will continue to follow patient weekly. Arleen Gibbs [facility] Jan 03, 2017 11:56
--- NOTE | 2017-01-03 13:38 | HHI.PR ---
Subjective Remarks Follow-up for neuro Behet's syndrome. Patient denies any pain. Denies any shortness of breath. Objective Vitals Vital Signs Date Time Temp Pulse Resp B/P Pulse Ox O2 Delivery O2 Flow Rate FiO2 01/03/17 08:00 98.4 98 20 104/69 97 01/02/17 20:00 97.5 72 22 108/75 98 I/O 01/02/17 01/02/17 01/02/17 01/03/17 01/03/17 01/03/17 07:00 15:00 23:00 07:00 15:00 23:00 Intake Total 840 ml 0 ml 810 ml 1060 ml Output Total 150 ml 300 ml 300 ml 350 ml Balance 690 ml -300 ml 510 ml 710 ml Intake Oral 0 ml Tube Feeding 720 ml 560 ml 560 ml Tube Irrigant 250 ml 500 ml Other 120 ml Output Urine Total 150 ml 300 ml 300 ml 350 ml # Bowel Movements 1 1 2 Result Diagram: 01/02/17 0455 01/02/17 0455 Objective Remarks GENERAL: Thin patient in no apparent distress. SKIN: Ulceration to right lateral malleolus. CARDIOVASCULAR: Regular rate rhythm RESPIRATORY: Transmitted grunting sounds. GASTROINTESTINAL: Abdomen soft, non-tender, nondistended. Feeding tube present. NEUROLOGICAL: Awake and alert. Nods head to answer questions. PSYCHIATRIC: Stable affect. 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 Patient followed by neurology. Aphasic at baseline. Neurology following the patient Continue Imuran, prednisone EEG shows mild to moderate slowing at times of various depending on the epoch, there was no epileptic activity seen Continue PT/OT Palliative care following the patient and is still indicating the patient is making his own decisions, full code and full aggressive measures [place] as needed for pain. Sinus tachycardia: Improved. S/p Lopressor TSH, free T3, free T4 were normal Melena, bright red blood in stool: Resolved Status post transfusion, emergently transferred to [facility], emergent endoscopy GI evaluated and managed patient with emergent colonoscopy showing small ulcer in the colon Continue Prevacid Hemoglobin stable Sepsis, multiple episodes: Resolved at this time Patient does have rather significant coccyx decubitus wound: Wound culture with pseudo fluorescens/putida, group D enterococcus VRE which is sensitive to Zosyn. Patient did have one urine culture of Daphney parapsilosis, was treated with fluconazole for 10 days. --Patient had episode of diarrhea, C. difficile cultures performed which was negative. --Possible aseptic meningitis Infectious disease consulted and last seen the patient on 10/18/16, at that time it was indicated to observe off antibiotics. 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 Would benefit from long-term steroids. Hypotension: Improved. -Repeat BMP 12/25 with improvement. Nurse states patient is receiving approximately 200 cc of free water flushes every 4 hours. -Lopressor discontinued on 01/02. Prerenal azotemia: Improved. BUN decreased to 21. Continue to monitor renal function periodically. Hypernatremia and hyperchloremia: Resolved. Continue free water flushes 200 cc every 4 hours Diabetes: stable HbA1c 6.6 on 09/25/16. Glucose was well controlled so Accu-Cheks and sliding scale insulin were discontinued. Decreased oral intake and dysphagia on initial presentation Speech therapy following intermittently. S/P barium swallow. Patient with severe dysphagia. GI consulted and PEG tube was placed. Dietary recommending Glucerna 1.5 at 70 mL/hour with Maury twice daily. Coccyx decubitus: Wound care nurse is following the patient for management.Recommends continuing to change dressings with Santyl ointment and cleansing with normal saline only. Apply nickly thick santyl ointment to slightly moistened maxorb II dressing loosely packed in wound bed and cover with bordered gauze, to be changed daily. Specialty bed Ankle ulcer: R lateral malleolus. -Foam boots. Wound care has evaluated; paint with skin prep or betadine and leave open to air. Depression: stable Patient was evaluated by psychiatrist. 12/20: Reevaluated by psychiatry. Prozac increased to 40 mg daily. Seroquel 50 mg added at night to help with mood and sleep. DVT Prophylaxis: Lovenox, TEDs/SCDs. Discharge Planning 12/12/16: Patient's income goes to court ordered child support making it difficult for placement as patient needs additional funds to offset what's not covered by Medicaid; CM is awaiting to speak with significant other in regards to returning home with care provided by family. 12/21/16: I spoke with Gustavo Louis, patient case coordinator, who is going to try to arrange for patient to be transported back to [place] to live with mother. Problem Qualifiers (1) GI bleed: Qualified Code: K92.2 - Gastrointestinal hemorrhage, unspecified gastrointestinal hemorrhage type (2) UTI (urinary tract infection): Qualified Code: N30.00 - Acute cystitis without hematuria (3) Effusion of hip joint: Qualified Code: M25.459 - Effusion of hip joint, unspecified laterality Mari Talamantes Jan 03, 2017 13:38
[2017-01-03 20:00] VITALS: BP 97/86; PULSE 102; RESP 20; TEMP 98.3; O2SAT 96
[2017-01-03] MEDS: QUEtiapine FUMARATE 25 MG TAB PO SCH (21:08)
[2017-01-04] MEDS: azaTHIOprine 50 MG TAB PEG SCH ×2 (05:11→17:07)
[2017-01-04 08:00] VITALS: BP 124/72; PULSE 88; RESP 18; TEMP 97.3; O2SAT 95
[2017-01-04] MEDS: FLUoxetine HCL LIQUID 20 MG/5 ML CUP PEG SCH (11:22)
[2017-01-04] MEDS: SENNOSIDES SYRUP 8.8 MG/5 ML CUP PEG SCH (11:22)
[2017-01-04] MEDS: predniSONE 20 MG TAB PEG SCH (11:23)
[2017-01-04] MEDS: LANSOPRAZOLE SOLUTAB 30 MG TAB PEG SCH ×2 (11:23→22:14)
[2017-01-04] MEDS: ENOXAPARIN SODIUM 40 MG/0.4 ML SYRINGE SQ SCH (11:23)
[2017-01-04] MEDS: LACTOBACILLUS ACIDOPHILUS TAB PEG SCH ×2 (11:23→22:14)
[2017-01-04] MEDS: COLLAGENASE OINT 30 GM TUBE TOP SCH (11:24)
[2017-01-04] MEDS: LACTIC ACID (AMMONIUM LACTATE) 12% LOTION 225 GM BTL TOPICAL SCH ×2 (11:25→22:18)
[2017-01-04] MEDS: JUVEN POWDER 1 PACK G-TUBE SCH ×2 (11:26→21:00)
--- NOTE | 2017-01-04 11:31 | HHI.PR ---
Subjective Remarks Follow-up for neuro Behet's syndrome. Denies any pain. Denies any shortness of breath. Objective Vitals Vital Signs Date Time Temp Pulse Resp B/P Pulse Ox O2 Delivery O2 Flow Rate FiO2 01/03/17 20:00 98.3 102 20 97/86 96 I/O 01/03/17 01/03/17 01/03/17 01/04/17 01/04/17 01/04/17 07:00 15:00 23:00 07:00 15:00 23:00 Intake Total 1060 ml 2400 ml 1060 ml Output Total 350 ml 600 ml 500 ml Balance 710 ml 1800 ml 560 ml Tube Feeding 560 ml 1400 ml 560 ml Tube Irrigant 500 ml 250 ml 500 ml Other 750 ml Output Urine Total 350 ml 600 ml 500 ml # Bowel Movements 2 1 1 Result Diagram: 01/02/17 0455 01/02/17 0455 Objective Remarks GENERAL: Thin patient in no apparent distress. CARDIOVASCULAR: Tachycardic rate with regular rhythm. RESPIRATORY: CTAB. Snorting upper respiratory sounds. GASTROINTESTINAL: Abdomen soft, non-tender, nondistended. Feeding tube present. NEUROLOGICAL: Awake and alert. Nods head to answer questions. PSYCHIATRIC: Stable affect. 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 Patient followed by neurology. Aphasic at baseline. Neurology following the patient Continue Imuran, prednisone EEG shows mild to moderate slowing at times of various depending on the epoch, there was no epileptic activity seen Continue PT/OT Palliative care following the patient and is still indicating the patient is making his own decisions, full code and full aggressive measures [place] as needed for pain. Sinus tachycardia: Improved. S/p Lopressor TSH, free T3, free T4 were normal Melena, bright red blood in stool: Resolved Status post transfusion, emergently transferred to [facility], emergent endoscopy GI evaluated and managed patient with emergent colonoscopy showing small ulcer in the colon Continue Prevacid Hemoglobin stable Sepsis, multiple episodes: Resolved at this time Patient does have rather significant coccyx decubitus wound: Wound culture with pseudo fluorescens/putida, group D enterococcus VRE which is sensitive to Zosyn. Patient did have one urine culture of Daphney parapsilosis, was treated with fluconazole for 10 days. --Patient had episode of diarrhea, C. difficile cultures performed which was negative. --Possible aseptic meningitis Infectious disease consulted and last seen the patient on 10/18/16, at that time it was indicated to observe off antibiotics. 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 Would benefit from long-term steroids. Hypotension: Resolved. -Repeat BMP 12/25 with improvement. Nurse states patient is receiving approximately 200 cc of free water flushes every 4 hours. -Lopressor discontinued on 01/02. -01/04: BP normal this morning. Prerenal azotemia: Improved. BUN decreased to 21. Continue to monitor renal function periodically. Hypernatremia and hyperchloremia: Resolved. Continue free water flushes 200 cc every 4 hours Diabetes: stable HbA1c 6.6 on 09/25/16. Glucose was well controlled so Accu-Cheks and sliding scale insulin were discontinued. Decreased oral intake and dysphagia on initial presentation Speech therapy following intermittently. S/P barium swallow. Patient with severe dysphagia. GI consulted and PEG tube was placed. Dietary recommending Glucerna 1.5 at 70 mL/hour with Maury twice daily. Coccyx decubitus: Wound care nurse is following the patient for management.Recommends continuing to change dressings with Santyl ointment and cleansing with normal saline only. Apply nickly thick santyl ointment to slightly moistened maxorb II dressing loosely packed in wound bed and cover with bordered gauze, to be changed daily. Specialty bed Ankle ulcer: R lateral malleolus. -Foam boots. Wound care has evaluated; paint with skin prep or betadine and leave open to air. Depression: stable Patient was evaluated by psychiatrist. 12/20: Reevaluated by psychiatry. Prozac increased to 40 mg daily. Seroquel 50 mg added at night to help with mood and sleep. DVT Prophylaxis: Lovenox, TEDs/SCDs. Discharge Planning 12/12/16: Patient's income goes to court ordered child support making it difficult for placement as patient needs additional funds to offset what's not covered by Medicaid; CM is awaiting to speak with significant other in regards to returning home with care provided by family. 12/21/16: I spoke with Gustavo Louis, housing case manager, who is going to try to arrange for patient to be transported back to [place] to live with mother. Problem Qualifiers (1) GI bleed: Qualified Code: K92.2 - Gastrointestinal hemorrhage, unspecified gastrointestinal hemorrhage type (2) UTI (urinary tract infection): Qualified Code: N30.00 - Acute cystitis without hematuria (3) Effusion of hip joint: Qualified Code: M25.459 - Effusion of hip joint, unspecified laterality Mari Talamantes Jan 04, 2017 11:31
[2017-01-04 20:00] VITALS: BP 92/76; PULSE 90; RESP 16; TEMP 97.4; O2SAT 97
[2017-01-04] MEDS: QUEtiapine FUMARATE 25 MG TAB PO SCH (22:13)
[2017-01-05] MEDS: azaTHIOprine 50 MG TAB PEG SCH ×2 (06:13→17:17)
[2017-01-05 08:00] VITALS: BP 118/72; PULSE 80; RESP 18; TEMP 98.2; O2SAT 95
[2017-01-05] MEDS: JUVEN POWDER 1 PACK G-TUBE SCH ×2 (09:00→20:32)
[2017-01-05] MEDS: SENNOSIDES SYRUP 8.8 MG/5 ML CUP PEG SCH (09:00)
--- NOTE | 2017-01-05 10:19 | HHI.PR ---
Subjective Remarks Follow-up for neuro Behet's syndrome. Patient denies any pain. Objective Vitals Vital Signs Date Time Temp Pulse Resp B/P Pulse Ox O2 Delivery O2 Flow Rate FiO2 01/04/17 20:00 97.4 90 16 92/76 97 I/O 01/04/17 01/04/17 01/04/17 01/05/17 01/05/17 01/05/17 07:00 15:00 23:00 07:00 15:00 23:00 Intake Total 1060 ml Output Total 500 ml 1275 ml 850 ml Balance 560 ml -1275 ml -850 ml Tube Feeding 560 ml Tube Irrigant 500 ml Output Urine Total 500 ml 1275 ml 850 ml # Bowel Movements 1 0 1 Result Diagram: 01/02/17 0455 01/02/17 0455 Objective Remarks GENERAL: Thin patient in no apparent distress. CARDIOVASCULAR: Tachycardic rate with regular rhythm. RESPIRATORY: Mildly coarse but appears to have transmitted upper respiratory sounds. GASTROINTESTINAL: Abdomen soft, non-tender, nondistended. Feeding tube present. NEUROLOGICAL: Awake and alert. Nods head to answer questions. PSYCHIATRIC: Stable affect. 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 Patient followed by neurology. Aphasic at baseline. Neurology following the patient Continue Imuran, prednisone EEG shows mild to moderate slowing at times of various depending on the epoch, there was no epileptic activity seen Continue PT/OT Palliative care following the patient and is still indicating the patient is making his own decisions, full code and full aggressive measures [place] as needed for pain. Sinus tachycardia: Improved. S/p Lopressor TSH, free T3, free T4 were normal Melena, bright red blood in stool: Resolved Status post transfusion, emergently transferred to main hospital, emergent endoscopy GI evaluated and managed patient with emergent colonoscopy showing small ulcer in the colon Continue Prevacid Hemoglobin stable Sepsis, multiple episodes: Resolved at this time Patient does have rather significant coccyx decubitus wound: Wound culture with pseudo fluorescens/putida, group D enterococcus VRE which is sensitive to Zosyn. Patient did have one urine culture of Daphney parapsilosis, was treated with fluconazole for 10 days. --Patient had episode of diarrhea, C. difficile cultures performed which was negative. --Possible aseptic meningitis Infectious disease consulted and last seen the patient on 10/18/16, at that time it was indicated to observe off antibiotics. 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 Would benefit from long-term steroids. Hypotension: -Repeat BMP 12/25 with improvement. Nurse states patient is receiving approximately 200 cc of free water flushes every 4 hours. -Lopressor discontinued on 01/02. -01/05: Hypotensive last night but improved this morning. Prerenal azotemia: Improved. BUN decreased to 21. Continue to monitor renal function periodically. Hypernatremia and hyperchloremia: Resolved. Continue free water flushes 200 cc every 4 hours Diabetes: stable HbA1c 6.6 on 09/25/16. Glucose was well controlled so Accu-Cheks and sliding scale insulin were discontinued. Decreased oral intake and dysphagia on initial presentation Speech therapy following intermittently. S/P barium swallow. Patient with severe dysphagia. GI consulted and PEG tube was placed. Dietary recommending Glucerna 1.5 at 70 mL/hour with Maury twice daily. Coccyx decubitus: Wound care nurse is following the patient for management.Recommends continuing to change dressings with Santyl ointment and cleansing with normal saline only. Apply nickly thick santyl ointment to slightly moistened maxorb II dressing loosely packed in wound bed and cover with bordered gauze, to be changed daily. Specialty bed Ankle ulcer: R lateral malleolus. -Foam boots. Wound care has evaluated; paint with skin prep or betadine and leave open to air. Depression: stable Patient was evaluated by psychiatrist. 12/20: Reevaluated by psychiatry. Prozac increased to 40 mg daily. Seroquel 50 mg added at night to help with mood and sleep. DVT Prophylaxis: Lovenox, TEDs/SCDs. Discharge Planning 12/12/16: Patient's income goes to court ordered child support making it difficult for placement as patient needs additional funds to offset what's not covered by Medicaid; CM is awaiting to speak with significant other in regards to returning home with care provided by family. 12/21/16: I spoke with Gustavo Louis, geriatric case manager, who is going to try to arrange for patient to be transported back to [place] to live with mother. 01/05/17: CM spoke with consulate general in [place] and requests a written letter which was sent 01/04/17. He is to review and discuss with [facility] regarding patient transfer to [place] to be cared for by mother. Problem Qualifiers (1) GI bleed: Qualified Code: K92.2 - Gastrointestinal hemorrhage, unspecified gastrointestinal hemorrhage type (2) UTI (urinary tract infection): Qualified Code: N30.00 - Acute cystitis without hematuria (3) Effusion of hip joint: Qualified Code: M25.459 - Effusion of hip joint, unspecified laterality Mari Talamantes Jan 05, 2017 10:19
[2017-01-05] MEDS: ENOXAPARIN SODIUM 40 MG/0.4 ML SYRINGE SQ SCH (10:48)
[2017-01-05] MEDS: FLUoxetine HCL LIQUID 20 MG/5 ML CUP PEG SCH (10:48)
[2017-01-05] MEDS: predniSONE 20 MG TAB PEG SCH (10:49)
[2017-01-05] MEDS: LACTOBACILLUS ACIDOPHILUS TAB PEG SCH ×2 (10:49→20:31)
[2017-01-05] MEDS: LANSOPRAZOLE SOLUTAB 30 MG TAB PEG SCH ×2 (10:49→20:31)
[2017-01-05] MEDS: COLLAGENASE OINT 30 GM TUBE TOP SCH (10:50)
[2017-01-05] MEDS: LACTIC ACID (AMMONIUM LACTATE) 12% LOTION 225 GM BTL TOPICAL SCH ×2 (10:50→20:32)
[2017-01-05 20:00] VITALS: BP 106/71; PULSE 80; RESP 20; TEMP 96.5; O2SAT 98
[2017-01-05] MEDS: QUEtiapine FUMARATE 25 MG TAB PO SCH (20:31)
[2017-01-06] MEDS: azaTHIOprine 50 MG TAB PEG SCH ×2 (05:12→17:26)
[2017-01-06 08:00] VITALS: BP 103/66; PULSE 88; RESP 22; TEMP 97.3; O2SAT 97
[2017-01-06] MEDS: SENNOSIDES SYRUP 8.8 MG/5 ML CUP PEG SCH (09:00)
[2017-01-06] MEDS: JUVEN POWDER 1 PACK G-TUBE SCH ×2 (09:00→21:00)
[2017-01-06] MEDS: LACTOBACILLUS ACIDOPHILUS TAB PEG SCH ×2 (09:19→22:18)
[2017-01-06] MEDS: predniSONE 20 MG TAB PEG SCH (09:19)
[2017-01-06] MEDS: FLUoxetine HCL LIQUID 20 MG/5 ML CUP PEG SCH (09:19)
[2017-01-06] MEDS: LANSOPRAZOLE SOLUTAB 30 MG TAB PEG SCH ×2 (09:19→22:18)
[2017-01-06] MEDS: ENOXAPARIN SODIUM 40 MG/0.4 ML SYRINGE SQ SCH (09:19)
[2017-01-06] MEDS: COLLAGENASE OINT 30 GM TUBE TOP SCH (09:21)
[2017-01-06] MEDS: LACTIC ACID (AMMONIUM LACTATE) 12% LOTION 225 GM BTL TOPICAL SCH ×2 (09:21→22:18)
--- NOTE | 2017-01-06 10:29 | HHI.PR ---
Subjective Remarks Follow-up for neuro Behet's syndrome. Patient makes a hand motion towards his face and upon questioning indicates that he has blurry vision in both of his eyes. It has been intermittent. Patient denies any pain. Objective Vitals Vital Signs Date Time Temp Pulse Resp B/P Pulse Ox O2 Delivery O2 Flow Rate FiO2 01/06/17 08:00 97.3 88 22 103/66 97 01/05/17 20:00 96.5 80 20 106/71 98 I/O 01/05/17 01/05/17 01/05/17 01/06/17 01/06/17 01/06/17 07:00 15:00 23:00 07:00 15:00 23:00 Intake Total 2110 ml 1060 ml Output Total 850 ml 750 ml 450 ml Balance -850 ml 1360 ml 610 ml Tube Feeding 1260 ml 560 ml Tube Irrigant 850 ml 500 ml Output Urine Total 850 ml 750 ml 450 ml # Bowel Movements 1 0 0 Result Diagram: 01/02/17 0455 01/02/17 0455 Objective Remarks GENERAL: Thin patient in no apparent distress. EYES: Pupils equal round and reactive to light. Patient has some difficulty with extraocular movement to the right but otherwise intact. Cannot adequately assess visual acuity or visual [place] due to clinical condition, though when I hold up 2 fingers patient indicates he sees only one. CARDIOVASCULAR: Tachycardic rate with regular rhythm. RESPIRATORY: Grunting upper respiratory sounds. CTAB. GASTROINTESTINAL: Abdomen soft, non-tender, nondistended. Feeding tube present. NEUROLOGICAL: Awake and alert. Nods head to answer questions. PSYCHIATRIC: Stable affect. 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 C/o this again today. Indicates it is intermittent in both eyes. Blurred vision is most likely related to his neuro Behet's syndrome as he likely has some sort of inflammation in his eyes although there is no visible iritis noted at this time, could be more related to his retinas. The patient is already on chronic daily prednisone via PEG. Will consider ophthalmology consultation to evaluate for retinitis. Discussed with Dr. Thorpe who states if it continues can consult optho. Will reevaluate patient tomorrow and determine need for consult. Neuro-Behcet, history of frontal lobe CVA, encephalopathy, history of meningitis , chronic No new changes on imaging. Patient followed by neurology. Aphasic at baseline. Neurology following the patient Continue Imuran, prednisone EEG shows mild to moderate slowing at times of various depending on the epoch, there was no epileptic activity seen Continue PT/OT Palliative care following the patient and is still indicating the patient is making his own decisions, full code and full aggressive measures [place] as needed for pain. Sinus tachycardia: Improved. S/p Lopressor TSH, free T3, free T4 were normal Melena, bright red blood in stool: Resolved Status post transfusion, emergently transferred to [facility], emergent endoscopy GI evaluated and managed patient with emergent colonoscopy showing small ulcer in the colon Continue Prevacid Hemoglobin stable Sepsis, multiple episodes: Resolved at this time Patient does have rather significant coccyx decubitus wound: Wound culture with pseudo fluorescens/putida, group D enterococcus VRE which is sensitive to Zosyn. Patient did have one urine culture of Daphney parapsilosis, was treated with fluconazole for 10 days. --Patient had episode of diarrhea, C. difficile cultures performed which was negative. --Possible aseptic meningitis Infectious disease consulted and last seen the patient on 10/18/16, at that time it was indicated to observe off antibiotics. 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 Would benefit from long-term steroids. Hypotension: -Repeat BMP 12/25 with improvement. Nurse states patient is receiving approximately 200 cc of free water flushes every 4 hours. -Lopressor discontinued on 01/02. -01/05: Hypotensive last night but improved this morning. Prerenal azotemia: Improved. BUN decreased to 21. Continue to monitor renal function periodically. Hypernatremia and hyperchloremia: Resolved. Continue free water flushes 200 cc every 4 hours Diabetes: stable HbA1c 6.6 on 09/25/16. Glucose was well controlled so Accu-Cheks and sliding scale insulin were discontinued. Decreased oral intake and dysphagia on initial presentation Speech therapy following intermittently. S/P barium swallow. Patient with severe dysphagia. GI consulted and PEG tube was placed. Dietary recommending Glucerna 1.5 at 70 mL/hour with Maury twice daily. Coccyx decubitus: Wound care nurse is following the patient for management.Recommends continuing to change dressings with Santyl ointment and cleansing with normal saline only. Apply nickly thick santyl ointment to slightly moistened maxorb II dressing loosely packed in wound bed and cover with bordered gauze, to be changed daily. Specialty bed Ankle ulcer: R lateral malleolus. -Foam boots. Wound care has evaluated; paint with skin prep or betadine and leave open to air. Depression: stable Patient was evaluated by psychiatrist. 12/20: Reevaluated by psychiatry. Prozac increased to 40 mg daily. Seroquel 50 mg added at night to help with mood and sleep. DVT Prophylaxis: Lovenox, TEDs/SCDs. Discharge Planning 12/12/16: Patient's income goes to court ordered child support making it difficult for placement as patient needs additional funds to offset what's not covered by Medicaid; CM is awaiting to speak with significant other in regards to returning home with care provided by family. 12/21/16: I spoke with Gustavo Louis, egg caser, who is going to try to arrange for patient to be transported back to [place] to live with mother. 01/05/17: CM spoke with consulate general in [place] and requests a written letter which was sent 01/04/17. He is to review and discuss with [facility] regarding patient transfer to [place] to be cared for by mother. Problem Qualifiers (1) GI bleed: Qualified Code: K92.2 - Gastrointestinal hemorrhage, unspecified gastrointestinal hemorrhage type (2) UTI (urinary tract infection): Qualified Code: N30.00 - Acute cystitis without hematuria (3) Effusion of hip joint: Qualified Code: M25.459 - Effusion of hip joint, unspecified laterality Mari Talamantes Jan 06, 2017 10:29
[2017-01-06 20:57] VITALS: BP 117/65; PULSE 86; RESP 20; TEMP 96.3; O2SAT 96
[2017-01-06] MEDS: QUEtiapine FUMARATE 25 MG TAB PO SCH (22:18)
[2017-01-07] MEDS: azaTHIOprine 50 MG TAB PEG SCH ×2 (06:21→17:55)
[2017-01-07 08:00] VITALS: BP 104/76; PULSE 86; RESP 18; TEMP 98.1; O2SAT 96
[2017-01-07] MEDS: JUVEN POWDER 1 PACK G-TUBE SCH ×2 (08:41→21:00)
[2017-01-07] MEDS: LACTOBACILLUS ACIDOPHILUS TAB PEG SCH ×2 (08:42→22:25)
[2017-01-07] MEDS: predniSONE 20 MG TAB PEG SCH (08:42)
[2017-01-07] MEDS: ENOXAPARIN SODIUM 40 MG/0.4 ML SYRINGE SQ SCH (08:42)
[2017-01-07] MEDS: LANSOPRAZOLE SOLUTAB 30 MG TAB PEG SCH ×2 (08:42→22:25)
[2017-01-07] MEDS: FLUoxetine HCL LIQUID 20 MG/5 ML CUP PEG SCH (08:42)
[2017-01-07] MEDS: COLLAGENASE OINT 30 GM TUBE TOP SCH (08:43)
[2017-01-07] MEDS: SENNOSIDES SYRUP 8.8 MG/5 ML CUP PEG SCH (08:43)
[2017-01-07] MEDS: LACTIC ACID (AMMONIUM LACTATE) 12% LOTION 225 GM BTL TOPICAL SCH ×2 (08:43→22:26)
--- NOTE | 2017-01-07 11:17 | HHI.PR ---
Subjective Remarks Follow-up for neuro-Behet's syndrome. Patient nods to yes or no questions. Patient signals with his left hand indicating blurred vision in his eyes. Blurred vision is bilateral; persistent since yesterday although he has previously mentioned this to another provider. Objective Vitals Vital Signs Date Time Temp Pulse Resp B/P Pulse Ox O2 Delivery O2 Flow Rate FiO2 01/07/17 08:00 98.1 86 18 104/76 96 01/06/17 20:57 96.3 86 20 117/65 96 I/O 01/06/17 01/06/17 01/06/17 01/07/17 01/07/17 01/07/17 06:59 14:59 22:59 06:59 14:59 22:59 Intake Total 1060 ml 0 ml Output Total 450 ml 550 ml 850 ml Balance 610 ml -550 ml -850 ml Intake Oral 0 ml Tube Feeding 560 ml Tube Irrigant 500 ml Output Urine Total 450 ml 550 ml 850 ml # Bowel Movements 0 1 1 Objective Remarks GENERAL: Thin patient in no apparent distress. EYES: Pupils equal and round. No injection evident. CARDIOVASCULAR: Tachycardic rate with regular rhythm. RESPIRATORY: Equivocal coarse breath sounds, may be related to grunting upper respiratory sounds. GASTROINTESTINAL: Abdomen soft, non-tender, nondistended. Feeding tube present. NEUROLOGICAL: Awake and alert. Nods head to answer questions. PSYCHIATRIC: Stable affect. 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 Persistent since yesterday, bilateral. Blurred vision is most likely related to his neuro Behet's syndrome as he likely has some sort of inflammation in his eyes although there is no visible iritis noted at this time, could be more related to his retinas. The patient is already on chronic daily prednisone via PEG. -Consult ophthalmology Neuro-Behcet, history of frontal lobe CVA, encephalopathy, history of meningitis , chronic No new changes on imaging. Patient followed by neurology. Aphasic at baseline. Neurology following the patient Continue Imuran, prednisone EEG shows mild to moderate slowing at times of various depending on the epoch, there was no epileptic activity seen Continue PT/OT Palliative care following the patient and is still indicating the patient is making his own decisions, full code and full aggressive measures [place] as needed for pain. Sinus tachycardia: Improved. S/p Lopressor TSH, free T3, free T4 were normal Melena, bright red blood in stool: Resolved Status post transfusion, emergently transferred to [facility], emergent endoscopy GI evaluated and managed patient with emergent colonoscopy showing small ulcer in the colon Continue Prevacid Hemoglobin stable Sepsis, multiple episodes: Resolved. Patient does have rather significant coccyx decubitus wound: Wound culture with pseudo fluorescens/putida, group D enterococcus VRE which is sensitive to Zosyn. Patient did have one urine culture of Daphney parapsilosis, was treated with fluconazole for 10 days. --Patient had episode of diarrhea, C. difficile cultures performed which was negative. --Possible aseptic meningitis Infectious disease consulted and last seen the patient on 10/18/16, at that time it was indicated to observe off antibiotics. 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 Would benefit from long-term steroids. Hypotension: -Repeat BMP 12/25 with improvement. Nurse states patient is receiving approximately 200 cc of free water flushes every 4 hours. -Lopressor discontinued on 01/02. -01/05: Hypotensive last night but improved this morning. Prerenal azotemia: Improved. BUN decreased to 21. Continue to monitor renal function periodically. Hypernatremia and hyperchloremia: Resolved. Continue free water flushes 200 cc every 4 hours Diabetes: stable HbA1c 6.6 on 09/25/16. Glucose was well controlled so Accu-Cheks and sliding scale insulin were discontinued. Decreased oral intake and dysphagia on initial presentation Speech therapy following intermittently. S/P barium swallow. Patient with severe dysphagia. GI consulted and PEG tube was placed. Dietary recommending Glucerna 1.5 at 70 mL/hour with Maury twice daily. Coccyx decubitus: Wound care nurse is following the patient for management. Recommends continuing to change dressings with Santyl ointment and cleansing with normal saline only. Apply nickly thick santyl ointment to slightly moistened maxorb II dressing loosely packed in wound bed and cover with bordered gauze, to be changed daily. Specialty bed Ankle ulcer: R lateral malleolus. -Foam boots. Wound care has evaluated; paint with skin prep or betadine and leave open to air. Depression: stable Patient was evaluated by psychiatrist. 12/20: Reevaluated by psychiatry. Prozac increased to 40 mg daily. Seroquel 50 mg added at night to help with mood and sleep. DVT Prophylaxis: Lovenox, TEDs/SCDs. Discharge Planning 12/12/16: Patient's income goes to court ordered child support making it difficult for placement as patient needs additional funds to offset what's not covered by Medicaid; CM is awaiting to speak with significant other in regards to returning home with care provided by family. 12/21/16: I spoke with Gustavo Louis, heel caser, who is going to try to arrange for patient to be transported back to [place] to live with mother. 01/05/17: CM spoke with consulate general in [place] and requests a written letter which was sent 01/04/17. He is to review and discuss with [facility] regarding patient transfer to [place] to be cared for by mother. Problem Qualifiers (1) GI bleed: Qualified Code: K92.2 - Gastrointestinal hemorrhage, unspecified gastrointestinal hemorrhage type (2) UTI (urinary tract infection): Qualified Code: N30.00 - Acute cystitis without hematuria (3) Effusion of hip joint: Qualified Code: M25.459 - Effusion of hip joint, unspecified laterality Mari Talamantes Jan 07, 2017 11:16
[2017-01-07 20:00] VITALS: BP 110/80; PULSE 81; RESP 23; TEMP 96.9; O2SAT 95
[2017-01-07] MEDS: QUEtiapine FUMARATE 25 MG TAB PO SCH (22:25)
[2017-01-08] MEDS: azaTHIOprine 50 MG TAB PEG SCH ×2 (05:44→16:33)
[2017-01-08] MEDS: ENOXAPARIN SODIUM 40 MG/0.4 ML SYRINGE SQ SCH (07:53)
[2017-01-08] MEDS: FLUoxetine HCL LIQUID 20 MG/5 ML CUP PEG SCH (07:53)
[2017-01-08] MEDS: LANSOPRAZOLE SOLUTAB 30 MG TAB PEG SCH ×2 (07:53→21:30)
[2017-01-08] MEDS: SENNOSIDES SYRUP 8.8 MG/5 ML CUP PEG SCH (07:53)
[2017-01-08] MEDS: LACTOBACILLUS ACIDOPHILUS TAB PEG SCH ×2 (07:54→21:30)
[2017-01-08] MEDS: predniSONE 20 MG TAB PEG SCH (07:54)
[2017-01-08] MEDS: ACETAMINOPHEN/HYDROcodone 325 MG/5 MG TAB PEG PRN (07:54)
[2017-01-08] MEDS: LACTIC ACID (AMMONIUM LACTATE) 12% LOTION 225 GM BTL TOPICAL SCH ×2 (07:55→21:32)
[2017-01-08] MEDS: JUVEN POWDER 1 PACK G-TUBE SCH ×2 (07:55→21:00)
[2017-01-08] MEDS: COLLAGENASE OINT 30 GM TUBE TOP SCH (07:56)
[2017-01-08 08:00] VITALS: BP 111/75; PULSE 103; RESP 20; TEMP 98.9; O2SAT 95
--- NOTE | 2017-01-08 10:06 | HHI.PR ---
Subjective Remarks Follow-up for neuro-Behcet's syndrome. Still indicates having blurred vision. Objective Vitals Vital Signs Date Time Temp Pulse Resp B/P Pulse Ox O2 Delivery O2 Flow Rate FiO2 01/07/17 20:00 96.9 81 23 110/80 95 I/O 01/07/17 01/07/17 01/07/17 01/08/17 01/08/17 01/08/17 06:59 14:59 22:59 06:59 14:59 22:59 Intake Total 1370 ml 0 ml Output Total 850 ml 700 ml 350 ml Balance -850 ml 670 ml -350 ml Intake Oral 0 ml 0 ml Tube Feeding 770 ml Tube Irrigant 600 ml Output Urine Total 850 ml 700 ml 350 ml # Bowel Movements 1 0 1 Objective Remarks GENERAL: Thin patient in no apparent distress. EYES: Pupils equal and round. No injection evident. CARDIOVASCULAR: Tachycardic rate with regular rhythm. RESPIRATORY: Transmitted upper respiratory sounds. No rales. GASTROINTESTINAL: Abdomen soft, non-tender, nondistended. Feeding tube present. NEUROLOGICAL: Awake and alert. Nods head to answer questions. PSYCHIATRIC: Stable affect. 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 Persistent since 01/06, bilateral. Blurred vision is most likely related to his neuro Behet 's syndrome as he likely has some sort of inflammation in his eyes although there is no visible iritis noted at this time, more likely related to his retinas. The patient is already on chronic daily prednisone via PEG. -I was informed there is no ophthalmology coverage this weekend. Will consult ophthalmology tomorrow. Neuro-Behcet, history of frontal lobe CVA, encephalopathy, history of meningitis , chronic No new changes on imaging. Patient followed by neurology. Aphasic at baseline. Neurology following the patient Continue Imuran, prednisone EEG shows mild to moderate slowing at times of various depending on the epoch, there was no epileptic activity seen Continue PT/OT Palliative care following the patient and is still indicating the patient is making his own decisions, full code and full aggressive measures [place] as needed for pain. Sinus tachycardia: Stable. S/p Lopressor TSH, free T3, free T4 were normal Melena, bright red blood in stool: Resolved Status post transfusion, emergently transferred to [facility], emergent endoscopy GI evaluated and managed patient with emergent colonoscopy showing small ulcer in the colon Continue Prevacid Hemoglobin stable Sepsis, multiple episodes: Resolved. Patient does have rather significant coccyx decubitus wound: Wound culture with pseudo fluorescens/putida, group D enterococcus VRE which is sensitive to Zosyn. Patient did have one urine culture of Daphney parapsilosis, was treated with fluconazole for 10 days. --Patient had episode of diarrhea, C. difficile cultures performed which was negative. --Possible aseptic meningitis Infectious disease consulted and last seen the patient on 10/18/16, at that time it was indicated to observe off antibiotics. 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 Would benefit from long-term steroids. Hypotension: Improved -Repeat BMP 12/25 with improvement. Nurse states patient is receiving approximately 200 cc of free water flushes every 4 hours. -Lopressor discontinued on 01/02. Prerenal azotemia: Improved. BUN decreased to 21. Continue to monitor renal function periodically. Hypernatremia and hyperchloremia: Resolved. Continue free water flushes 200 cc every 4 hours Diabetes: stable HbA1c 6.6 on 09/25/16. Glucose was well controlled so Accu-Cheks and sliding scale insulin were discontinued. Decreased oral intake and dysphagia on initial presentation Speech therapy following intermittently. S/P barium swallow. Patient with severe dysphagia. GI consulted and PEG tube was placed. Dietary recommending Glucerna 1.5 at 70 mL/hour with Maury twice daily. Coccyx decubitus: Wound care nurse is following the patient for management. Recommends continuing to change dressings with Santyl ointment and cleansing with normal saline only. Apply nickly thick santyl ointment to slightly moistened maxorb II dressing loosely packed in wound bed and cover with bordered gauze, to be changed daily. Specialty bed Ankle ulcer: R lateral malleolus. -Foam boots. Wound care has evaluated; paint with skin prep or betadine and leave open to air. Depression: stable Patient was evaluated by psychiatrist. 12/20: Reevaluated by psychiatry. Prozac increased to 40 mg daily. Seroquel 50 mg added at night to help with mood and sleep. DVT Prophylaxis: Lovenox, TEDs/SCDs. Discharge Planning 12/12/16: Patient's income goes to court ordered child support making it difficult for placement as patient needs additional funds to offset what's not covered by Medicaid; CM is awaiting to speak with significant other in regards to returning home with care provided by family. 12/21/16: I spoke with Gustavo Louis, heel caser, who is going to try to arrange for patient to be transported back to [place] to live with mother. 01/05/17: CM spoke with consulate general in [place] and requests a written letter which was sent 01/04/17. He is to review and discuss with [facility] regarding patient transfer to [place] to be cared for by mother. Problem Qualifiers (1) GI bleed: Qualified Code: K92.2 - Gastrointestinal hemorrhage, unspecified gastrointestinal hemorrhage type (2) UTI (urinary tract infection): Qualified Code: N30.00 - Acute cystitis without hematuria (3) Effusion of hip joint: Qualified Code: M25.459 - Effusion of hip joint, unspecified laterality Mari Talamantes Jan 08, 2017 10:06
[2017-01-08 20:00] VITALS: BP 101/90; PULSE 91; RESP 16; TEMP 97.4; O2SAT 98
[2017-01-08] MEDS: QUEtiapine FUMARATE 25 MG TAB PO SCH (21:30)
[2017-01-09] MEDS: azaTHIOprine 50 MG TAB PEG SCH ×2 (05:52→16:25)
[2017-01-09 08:00] VITALS: BP 117/78; PULSE 88; RESP 19; TEMP 96.9; O2SAT 97
[2017-01-09] MEDS: SENNOSIDES SYRUP 8.8 MG/5 ML CUP PEG SCH (09:56)
[2017-01-09] MEDS: LANSOPRAZOLE SOLUTAB 30 MG TAB PEG SCH ×2 (09:56→21:23)
[2017-01-09] MEDS: FLUoxetine HCL LIQUID 20 MG/5 ML CUP PEG SCH (09:56)
[2017-01-09] MEDS: predniSONE 20 MG TAB PEG SCH (09:56)
[2017-01-09] MEDS: ENOXAPARIN SODIUM 40 MG/0.4 ML SYRINGE SQ SCH (09:56)
[2017-01-09] MEDS: LACTOBACILLUS ACIDOPHILUS TAB PEG SCH ×2 (09:56→21:23)
[2017-01-09] MEDS: LACTIC ACID (AMMONIUM LACTATE) 12% LOTION 225 GM BTL TOPICAL SCH ×2 (09:57→21:23)
[2017-01-09] MEDS: JUVEN POWDER 1 PACK G-TUBE SCH ×2 (09:57→21:00)
[2017-01-09] MEDS: COLLAGENASE OINT 30 GM TUBE TOP SCH (09:58)
--- NOTE | 2017-01-09 11:40 | HHI.PR ---
Subjective Remarks Follow-up for neuro Behet's syndrome. Nods to yes and no questions. Patient again admits to blurred vision in both eyes. He denies any pain or shortness of breath. Objective Vitals Vital Signs Date Time Temp Pulse Resp B/P Pulse Ox O2 Delivery O2 Flow Rate FiO2 01/09/17 08:00 96.9 88 19 117/78 97 01/08/17 20:00 97.4 91 16 101/90 98 I/O 01/08/17 01/08/17 01/08/17 01/09/17 01/09/17 01/09/17 07:00 15:00 23:00 07:00 15:00 23:00 Intake Total 0 ml 986 ml 855 ml Output Total 350 ml 1100 ml 800 ml Balance -350 ml -114 ml 55 ml Intake Oral 0 ml Tube Feeding 786 ml 655 ml Tube Irrigant 200 ml 200 ml Output Urine Total 350 ml 1100 ml 800 ml # Bowel Movements 1 0 Objective Remarks GENERAL: Thin patient in no apparent distress. CARDIOVASCULAR: Normal rate 88 with regular rhythm. RESPIRATORY: Transmitted upper grunting respiratory sounds making auscultation difficult. GASTROINTESTINAL: Abdomen soft, non-tender, nondistended. Feeding tube present. NEUROLOGICAL: Awake and alert. Nods head to answer questions. PSYCHIATRIC: Stable affect. 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 Blurred vision is most likely related to his neuro Behet's syndrome as he likely has some sort of inflammation in his eyes although there is no visible iritis noted at this time , more likely related to his retinas. The patient is already on chronic daily prednisone via PEG. -Consult ophthalmology. Neuro-Behcet, history of frontal lobe CVA, encephalopathy, history of meningitis , chronic No new changes on imaging. Patient followed by neurology. Aphasic at baseline. Neurology following the patient Continue Imuran, prednisone EEG shows mild to moderate slowing at times of various depending on the epoch, there was no epileptic activity seen Continue PT/OT Palliative care following the patient and is still indicating the patient is making his own decisions, full code and full aggressive measures [place] as needed for pain. Sinus tachycardia: Stable. S/p Lopressor TSH, free T3, free T4 were normal Melena, bright red blood in stool: Resolved Status post transfusion, emergently transferred to [facility], emergent endoscopy GI evaluated and managed patient with emergent colonoscopy showing small ulcer in the colon Continue Prevacid Hemoglobin stable Sepsis, multiple episodes: Resolved. Patient does have rather significant coccyx decubitus wound: Wound culture with pseudo fluorescens/putida, group D enterococcus VRE which is sensitive to Zosyn. Patient did have one urine culture of Daphney parapsilosis, was treated with fluconazole for 10 days. --Patient had episode of diarrhea, C. difficile cultures performed which was negative. --Possible aseptic meningitis Infectious disease consulted and last seen the patient on 10/18/16, at that time it was indicated to observe off antibiotics. 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 Would benefit from long-term steroids. Hypotension: Improved -Repeat BMP 12/25 with improvement. Nurse states patient is receiving approximately 200 cc of free water flushes every 4 hours. -Lopressor discontinued on 01/02. Prerenal azotemia: Improved. BUN decreased to 21. Continue to monitor renal function periodically. Hypernatremia and hyperchloremia: Resolved. Continue free water flushes 200 cc every 4 hours Diabetes: stable HbA1c 6.6 on 09/25/16. Glucose was well controlled so Accu-Cheks and sliding scale insulin were discontinued. Decreased oral intake and dysphagia on initial presentation Speech therapy following intermittently. S/P barium swallow. Patient with severe dysphagia. GI consulted and PEG tube was placed. Dietary recommending Glucerna 1.5 at 70 mL/hour with Maury twice daily. Coccyx decubitus: Wound care nurse is following the patient for management. Recommends continuing to change dressings with Santyl ointment and cleansing with normal saline only. Apply nickly thick santyl ointment to slightly moistened maxorb II dressing loosely packed in wound bed and cover with bordered gauze, to be changed daily. Specialty bed Ankle ulcer: R lateral malleolus. -Foam boots. Wound care has evaluated; paint with skin prep or betadine and leave open to air. Depression: stable Patient was evaluated by psychiatrist. 12/20: Reevaluated by psychiatry. Prozac increased to 40 mg daily. Seroquel 50 mg added at night to help with mood and sleep. DVT Prophylaxis: Lovenox, TEDs/SCDs. Discharge Planning 12/12/16: Patient's income goes to court ordered child support making it difficult for placement as patient needs additional funds to offset what's not covered by Medicaid; JASON is awaiting to speak with significant other in regards to returning home with care provided by family. 12/21/16: I spoke with Gustavo Louis, top case assembler, who is going to try to arrange for patient to be transported back to [place] to live with mother. 01/05/17: CM spoke with consulate general in [place] and requests a written letter which was sent 01/04/17. He is to review and discuss with [facility] regarding patient transfer to [place] to be cared for by mother. Problem Qualifiers (1) GI bleed: Qualified Code: K92.2 - Gastrointestinal hemorrhage, unspecified gastrointestinal hemorrhage type (2) UTI (urinary tract infection): Qualified Code: N30.00 - Acute cystitis without hematuria (3) Effusion of hip joint: Qualified Code: M25.459 - Effusion of hip joint, unspecified laterality Mari Talamantes Jan 09, 2017 11:40
[2017-01-09 20:00] VITALS: BP 103/86; PULSE 75; RESP 18; TEMP 95.8; O2SAT 97
[2017-01-09] MEDS: QUEtiapine FUMARATE 25 MG TAB PO SCH (21:23)
[2017-01-10] MEDS: azaTHIOprine 50 MG TAB PEG SCH ×2 (05:38→17:08)
[2017-01-10 08:00] VITALS: BP 100/72; PULSE 80; RESP 20; TEMP 97.2; O2SAT 94
[2017-01-10] MEDS: ENOXAPARIN SODIUM 40 MG/0.4 ML SYRINGE SQ SCH (10:20)
[2017-01-10] MEDS: SENNOSIDES SYRUP 8.8 MG/5 ML CUP PEG SCH (10:20)
[2017-01-10] MEDS: COLLAGENASE OINT 30 GM TUBE TOP SCH (10:20)
[2017-01-10] MEDS: JUVEN POWDER 1 PACK G-TUBE SCH ×2 (10:20→21:00)
[2017-01-10] MEDS: FLUoxetine HCL LIQUID 20 MG/5 ML CUP PEG SCH (10:20)
[2017-01-10] MEDS: LACTIC ACID (AMMONIUM LACTATE) 12% LOTION 225 GM BTL TOPICAL SCH ×2 (10:20→22:09)
[2017-01-10] MEDS: LACTOBACILLUS ACIDOPHILUS TAB PEG SCH ×2 (10:21→22:08)
[2017-01-10] MEDS: predniSONE 20 MG TAB PEG SCH (10:21)
[2017-01-10] MEDS: LANSOPRAZOLE SOLUTAB 30 MG TAB PEG SCH ×2 (10:21→22:08)
--- NOTE | 2017-01-10 14:59 | HHI.PR ---
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 Patient denies any new complaints. Objective Vitals Vital Signs Date Time Temp Pulse Resp B/P Pulse Ox O2 Delivery O2 Flow Rate FiO2 01/10/17 08:00 97.2 80 20 100/72 94 01/09/17 20:00 95.8 75 18 103/86 97 I/O 01/09/17 01/09/17 01/09/17 01/10/17 01/10/17 01/10/17 07:00 15:00 23:00 07:00 15:00 23:00 Intake Total 855 ml 1840 ml 1700 ml Output Total 800 ml 400 ml Balance 55 ml -400 ml 1840 ml 1700 ml Intake Oral 0 ml Tube Feeding 655 ml 840 ml 700 ml Tube Irrigant 200 ml 750 ml Other 250 ml 1000 ml Output Urine Total 800 ml 400 ml # Voids 2 # Bowel Movements 0 Objective Remarks GENERAL: Well-developed, cachectic and contracted. HEENT: Head is normocephalic without any lesions or masses noted. Facial features are symmetric. Eyes: Extraocular muscles are intact. Conjunctivae were clear. NECK: Supple without any masses. Trachea midline no deviation. No JVD, CARDIAC: Regular rhythm, tachycardia noted. S1/S2 are heard. No murmurs gallops or rubs. LUNGS: Clear to auscultation bilaterally. No wheeze, rhonchi or rales. No use of accessory muscles on inspiration or expiration. ABDOMEN: Soft, nontender. Nondistended. Bowel sounds heard in all 4 quadrants. No organomegaly or masses. Negative rebound, negative guarding. PEG tube noted without any excoriation. EXTREMITIES: No edema, pulses are equal bilaterally. No cyanosis or clubbing Procedures 07/19/16 EGD with PEG tube placement 09/27/16 colonoscopy Urinary Catheter: No Vascular Central Line Catheter: No A/P Assessment and Plan Neuro-Behcet, history of frontal lobe CVA, encephalopathy, history of meningitis , chronic No new changes on imaging. Patient was followed by neurology. Aphasic at baseline. Continue Imuran, prednisone EEG shows mild to moderate slowing at times of various depending on the epoch, there was no epileptic activity seen Continue PT/OT Palliative care evaluated the patient and is still indicating the patient is making his own decisions, full code and full aggressive measures Blurred vision, likely secondary to neuro-Behcet's syndrome Saline eyedrops Ophthalmology consulted for recommendations Sinus tachycardia. Stable Discontinue Lopressor due to low blood pressure TSH, free T3, free T4 colon were normal Melena, bright red blood in stool, resolved Status post transfusion, emergency [facility], emergent endoscopy GI evaluated and managed patient with emergent colonoscopy showing small ulcer in the colon Continue Prevacid Sepsis, multiple episodes, resolved at this time Patient does have rather significant coccyx decubitus wound: Wound culture with pseudo fluorescens/putida, group D enterococcus VRE which is sensitive to Zosyn. Patient did have one urine culture of [place]aphney parapsilosis, was treated with fluconazole for 10 days. --Patient had episode of diarrhea, C. difficile cultures performed which was negative. --Possible aseptic meningitis Infectious disease consulted and last seen the patient on 10/18/16, at that time it was indicated to observe off antibiotics. 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 Would benefit from long-term steroids Prerenal azotemia, resolved Continue monitor renal function periodically Hypernatremia, resolved free water flushes 250 cc every 4 hours Monitor sodium level, BMP ordered for 12/20/16 Decreased oral intake and dysphagia on initial presentation Speech therapy following intermittently. S/P barium swallow. Patient with severe dysphagia. GI was consulted and PEG tube was placed. Dietary recommending Glucerna 1.5 at 70 mL's an hour with Maury twice daily, Continue continuous tube feeding until patient appears to be more nutritionally stable and then will evaluate for bolus feeding Coccyx decubitus. Wound care nurse is following the patient for management Patient with specialty bed Mood disorder, depression Patient was evaluated by psychiatrist. Psychiatrist recommended Prozac Reconsult psychiatry who increased Prozac and started patient on Seroquel Diabetes Glucose well controlled, DVT Prophylaxis: Lovenox, TEDs/SCDs. Discharge Planning Case management for discharge planning, recent records indicate that planning on transferring back to [place], Ede Richardson Jan 10, 2017 14:59
[2017-01-10 20:00] VITALS: BP 94/81; PULSE 87; RESP 20; TEMP 96.5; O2SAT 97
[2017-01-10] MEDS: QUEtiapine FUMARATE 25 MG TAB PO SCH (22:08)
[2017-01-11] MEDS: azaTHIOprine 50 MG TAB PEG SCH ×2 (05:37→18:09)
[2017-01-11 08:00] VITALS: BP 93/77; PULSE 94; RESP 16; TEMP 97.5; O2SAT 93
[2017-01-11] MEDS: SENNOSIDES SYRUP 8.8 MG/5 ML CUP PEG SCH (09:11)
[2017-01-11] MEDS: predniSONE 20 MG TAB PEG SCH (09:11)
[2017-01-11] MEDS: LANSOPRAZOLE SOLUTAB 30 MG TAB PEG SCH ×2 (09:11→21:20)
[2017-01-11] MEDS: FLUoxetine HCL LIQUID 20 MG/5 ML CUP PEG SCH (09:11)
[2017-01-11] MEDS: ENOXAPARIN SODIUM 40 MG/0.4 ML SYRINGE SQ SCH (09:11)
[2017-01-11] MEDS: LACTOBACILLUS ACIDOPHILUS TAB PEG SCH ×2 (09:11→21:20)
[2017-01-11] MEDS: JUVEN POWDER 1 PACK G-TUBE SCH ×2 (09:12→21:00)
[2017-01-11] MEDS: COLLAGENASE OINT 30 GM TUBE TOP SCH (09:12)
[2017-01-11] MEDS: LACTIC ACID (AMMONIUM LACTATE) 12% LOTION 225 GM BTL TOPICAL SCH ×2 (09:12→21:21)
--- NOTE | 2017-01-11 09:38 | HHI.PR ---
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 Patient states that he still having blurred vision, awaiting ophthalmology for evaluation Objective Vitals Vital Signs Date Time Temp Pulse Resp B/P Pulse Ox O2 Delivery O2 Flow Rate FiO2 01/11/17 08:00 97.5 94 16 93/77 93 01/10/17 20:00 96.5 87 20 94/81 97 I/O 01/10/17 01/10/17 01/10/17 01/11/17 01/11/17 01/11/17 07:00 15:00 23:00 07:00 15:00 23:00 Intake Total 1700 ml 1380 ml Output Total 475 ml 325 ml Balance 1700 ml -475 ml 1055 ml Intake Oral 0 ml Tube Feeding 700 ml 630 ml Other 1000 ml 750 ml Output Urine Total 475 ml 325 ml # Voids 2 # Bowel Movements 0 0 Objective Remarks GENERAL: Well-developed, cachectic and contracted. HEENT: Head is normocephalic without any lesions or masses noted. Facial features are symmetric. Eyes: Extraocular muscles are intact. Conjunctivae were clear. NECK: Supple without any masses. Trachea midline no deviation. No JVD, CARDIAC: Regular rhythm, tachycardia noted. S1/S2 are heard. No murmurs gallops or rubs. LUNGS: Clear to auscultation bilaterally. No wheeze, rhonchi or rales. No use of accessory muscles on inspiration or expiration. ABDOMEN: Soft, nontender. Nondistended. Bowel sounds heard in all 4 quadrants. No organomegaly or masses. Negative rebound, negative guarding. PEG tube noted without any excoriation. EXTREMITIES: No edema, pulses are equal bilaterally. No cyanosis or clubbing Procedures 07/19/16 EGD with PEG tube placement 09/27/16 colonoscopy Urinary Catheter: No Vascular Central Line Catheter: No A/P Assessment and Plan Neuro-Behcet, history of frontal lobe CVA, encephalopathy, history of meningitis , chronic No new changes on imaging. Patient was followed by neurology. Aphasic at baseline. Continue Imuran, prednisone EEG shows mild to moderate slowing at times of various depending on the epoch, there was no epileptic activity seen Continue PT/OT Palliative care evaluated the patient and is still indicating the patient is making his own decisions, full code and full aggressive measures Blurred vision, likely secondary to neuro-Behcet's syndrome Saline eyedrops Ophthalmology consulted for recommendations Sinus tachycardia. Stable Discontinue Lopressor due to low blood pressure TSH, free T3, free T4 colon were normal Melena, bright red blood in stool, resolved Status post transfusion, emergency transferred to [facility] hospital, emergent endoscopy GI evaluated and managed patient with emergent colonoscopy showing small ulcer in the colon Continue Prevacid Sepsis, multiple episodes, resolved at this time Patient does have rather significant coccyx decubitus wound: Wound culture with pseudo fluorescens/putida, group D enterococcus VRE which is sensitive to Zosyn. Patient did have one urine culture of Daphney parapsilosis, was treated with fluconazole for 10 days. --Patient had episode of diarrhea, C. difficile cultures performed which was negative. --Possible aseptic meningitis Infectious disease consulted and last seen the patient on 10/18/16, at that time it was indicated to observe off antibiotics. 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 Would benefit from long-term steroids Prerenal azotemia, resolved Continue monitor renal function periodically Hypernatremia, resolved free water flushes 250 cc every 4 hours Monitor sodium level, BMP ordered for 12/20/16 Decreased oral intake and dysphagia on initial presentation Speech therapy following intermittently. S/P barium swallow. Patient with severe dysphagia. GI was consulted and PEG tube was placed. Dietary recommending Glucerna 1.5 at 70 mL's an hour with Maury twice daily, Continue continuous tube feeding until patient appears to be more nutritionally stable and then will evaluate for bolus feeding Coccyx decubitus. Wound care nurse is following the patient for management Patient with specialty bed Mood disorder, depression Patient was evaluated by psychiatrist. Psychiatrist recommended Prozac Reconsult psychiatry who increased Prozac and started patient on Seroquel Diabetes Glucose well controlled, DVT Prophylaxis: Lovenox, TEDs/SCDs. Discharge Planning Case management for discharge planning, recent records indicate that planning on transferring back to [place], Ede Richardson Jan 11, 2017 09:38
--- NOTE | 2017-01-11 12:44 | PD.CONS ---
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 All the information obtained from the EMR as the patient is nonverbal and unable to provide any history. Ophthalmology consulted due to pt c/o blurry vision. He nods to yes/no questions. Says blurred vision has been present more months, it is in both eyes, and he's seeing some diplopia. He denies any past ocular history. Past Family Social History Allergies: Coded Allergies: *MDRO Multi-Drug Resistant Organism (Verified Adverse Reaction, Unknown, ) VRE (buttock)-09/20/16 Uncoded Allergies: ADHESIVE TAPE (Allergy, Severe, 09/21/16) BLISTERS Physical Exam Vital Signs Vital Signs Date Time Temp Pulse Resp B/P Pulse Ox O2 Delivery O2 Flow Rate FiO2 01/11/17 08:00 97.5 94 16 93/77 93 01/10/17 20:00 96.5 87 20 94/81 97 Physical Exam Va sc at near OD 20/400, OS 20/400 EOM esotropia, unable to look right? CVF unable Pupils 3-2 OD, 4-2 OS no APD OU IOP normal to palpation OU Anterior exam OD - normal eyelid, C/S W&Q, K clear, AC deep, pupil round, cataract OS - normal eyelid, C/S W&Q, K clear, AC deep, pupil round, cataract Dilated exam OD - ON s/p/f, retinal vasculitis, vitritis, retina flat OS - ON s/p/f, retinal vasculitis, vitritis, retina flat Assessment and Plan Problem List: (1) Retinal vasculitis of both eyes Status: Acute Plan: Secondary to Behet's. Treatment is focused towards the underlying disorder - immunosuppressants and steroids - which patient is currently on. (2) Internuclear ophthalmoplegia Status: Acute Plan: Most likely cause of diplopia - also secondary to Neuro Behet's. Judy aFir MD Jan 11, 2017 12:44
[2017-01-11 20:00] VITALS: BP 105/85; PULSE 72; RESP 16; TEMP 97; O2SAT 96
[2017-01-11] MEDS: QUEtiapine FUMARATE 25 MG TAB PO SCH (21:20)
[2017-01-12] MEDS: azaTHIOprine 50 MG TAB PEG SCH ×2 (06:19→18:23)
[2017-01-12 08:00] VITALS: BP 96/73; PULSE 101; RESP 20; TEMP 99.8; O2SAT 96
--- NOTE | 2017-01-12 08:53 | HHI.PR ---
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 Patient states still having blurred and double vision. Form Worker evaluated the patient yesterday. Unfortunately it is a component of his condition. Objective Vitals Vital Signs Date Time Temp Pulse Resp B/P Pulse Ox O2 Delivery O2 Flow Rate FiO2 01/11/17 20:00 97.0 72 16 105/85 96 I/O 01/11/17 01/11/17 01/11/17 01/12/17 01/12/17 01/12/17 07:00 15:00 23:00 07:00 15:00 23:00 Intake Total 1380 ml Output Total 325 ml 400 ml 250 ml 450 ml Balance 1055 ml -400 ml -250 ml -450 ml Tube Feeding 630 ml Other 750 ml Output Urine Total 325 ml 400 ml 250 ml 450 ml # Bowel Movements 0 1 1 0 Objective Remarks GENERAL: Well-developed, cachectic and contracted. HEENT: Head is normocephalic without any lesions or masses noted. Facial features are symmetric. Eyes: Extraocular muscles are intact. Conjunctivae were clear. NECK: Trachea midline no deviation. CARDIAC: Regular rhythm, tachycardia noted. S1/S2 are heard. No murmurs gallops or rubs. LUNGS: Clear to auscultation bilaterally. No wheeze, rhonchi or rales. No use of accessory muscles on inspiration or expiration. ABDOMEN: Soft, nontender. Nondistended. Bowel sounds heard in all 4 quadrants. No organomegaly or masses. Negative rebound, negative guarding. PEG tube noted without any excoriation. EXTREMITIES: No edema, pulses are equal bilaterally. No cyanosis or clubbing Procedures 07/19/16 EGD with PEG tube placement 09/27/16 colonoscopy Urinary Catheter: No Vascular Central Line Catheter: No A/P Assessment and Plan Neuro-Behcet, history of frontal lobe CVA, encephalopathy, history of meningitis , chronic No new changes on imaging. Patient was followed by neurology. Aphasic at baseline. Continue Imuran, prednisone EEG shows mild to moderate slowing at times of various depending on the epoch, there was no epileptic activity seen Continue PT/OT Palliative care evaluated the patient and is still indicating the patient is making his own decisions, full code and full aggressive measures Blurred vision/double vision, likely secondary to neuro-Behcet's syndrome Ophthalmology consulted and indicates that his visual problems are secondary to neuro-Behcet's syndrome Recommending immunosuppressive and steroids, which the patient is already on Sinus tachycardia. Stable Discontinue Lopressor due to low blood pressure TSH, free T3, free T4 colon were normal Melena, bright red blood in stool, resolved Status post transfusion, emergency transferred to [facility] hospital, emergent endoscopy GI evaluated and managed patient with emergent colonoscopy showing small ulcer in the colon Continue Prevacid Sepsis, multiple episodes, resolved at this time Patient does have rather significant coccyx decubitus wound: Wound culture with pseudo fluorescens/putida, group D enterococcus VRE which is sensitive to Zosyn. Patient did have one urine culture of Daphney parapsilosis, was treated with fluconazole for 10 days. --Patient had episode of diarrhea, C. difficile cultures performed which was negative. --Possible aseptic meningitis Infectious disease consulted and last seen the patient on 10/18/16, at that time it was indicated to observe off antibiotics. 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 Would benefit from long-term steroids Prerenal azotemia, resolved Continue monitor renal function periodically Hypernatremia, resolved free water flushes 250 cc every 4 hours Monitor sodium level, BMP ordered for 12/20/16 Decreased oral intake and dysphagia on initial presentation Speech therapy following intermittently. S/P barium swallow. Patient with severe dysphagia. GI was consulted and PEG tube was placed. Dietary recommending Glucerna 1.5 at 70 mL's an hour with Maury twice daily, Continue continuous tube feeding until patient appears to be more nutritionally stable and then will evaluate for bolus feeding Coccyx decubitus. Wound care nurse is following the patient for management Patient with specialty bed Mood disorder, depression Patient was evaluated by psychiatrist. Psychiatrist recommended Prozac Reconsult psychiatry who increased Prozac and started patient on Seroquel Diabetes Glucose well controlled, DVT Prophylaxis: Lovenox, TEDs/SCDs. Discharge Planning Case management for discharge planning, recent records indicate that planning on transferring back to [place], Ede Richardson Jan 12, 2017 08:53
[2017-01-12] MEDS: SENNOSIDES SYRUP 8.8 MG/5 ML CUP PEG SCH (09:00)
[2017-01-12] MEDS: JUVEN POWDER 1 PACK G-TUBE SCH ×2 (09:00→21:00)
[2017-01-12] MEDS: FLUoxetine HCL LIQUID 20 MG/5 ML CUP PEG SCH (09:51)
[2017-01-12] MEDS: LACTOBACILLUS ACIDOPHILUS TAB PEG SCH ×2 (09:51→21:30)
[2017-01-12] MEDS: LANSOPRAZOLE SOLUTAB 30 MG TAB PEG SCH ×2 (09:51→21:30)
[2017-01-12] MEDS: ENOXAPARIN SODIUM 40 MG/0.4 ML SYRINGE SQ SCH (09:51)
[2017-01-12] MEDS: predniSONE 20 MG TAB PEG SCH (09:52)
[2017-01-12] MEDS: COLLAGENASE OINT 30 GM TUBE TOP SCH (09:52)
[2017-01-12] MEDS: LACTIC ACID (AMMONIUM LACTATE) 12% LOTION 225 GM BTL TOPICAL SCH ×2 (09:52→21:31)
[2017-01-12 20:00] VITALS: BP 98/85; PULSE 92; RESP 23; TEMP 97.3; O2SAT 96
[2017-01-12] MEDS: QUEtiapine FUMARATE 25 MG TAB PO SCH (21:30)
[2017-01-13] MEDS: azaTHIOprine 50 MG TAB PEG SCH ×2 (06:07→17:57)
[2017-01-13 08:00] VITALS: BP 100/69; PULSE 84; RESP 20; TEMP 98.9; O2SAT 94
[2017-01-13] MEDS: ENOXAPARIN SODIUM 40 MG/0.4 ML SYRINGE SQ SCH (08:37)
[2017-01-13] MEDS: LANSOPRAZOLE SOLUTAB 30 MG TAB PEG SCH ×2 (08:37→21:13)
[2017-01-13] MEDS: predniSONE 20 MG TAB PEG SCH (08:37)
[2017-01-13] MEDS: LACTOBACILLUS ACIDOPHILUS TAB PEG SCH ×2 (08:37→21:13)
[2017-01-13] MEDS: FLUoxetine HCL LIQUID 20 MG/5 ML CUP PEG SCH (08:37)
[2017-01-13] MEDS: LACTIC ACID (AMMONIUM LACTATE) 12% LOTION 225 GM BTL TOPICAL SCH ×2 (08:39→21:14)
[2017-01-13] MEDS: COLLAGENASE OINT 30 GM TUBE TOP SCH (08:39)
[2017-01-13] MEDS: JUVEN POWDER 1 PACK G-TUBE SCH ×2 (08:40→21:14)
[2017-01-13] MEDS: SENNOSIDES SYRUP 8.8 MG/5 ML CUP PEG SCH (08:49)
--- NOTE | 2017-01-13 08:58 | HHI.PR ---
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 Patient denies any new complaints. Indicates still having problems with his vision Objective Vitals Vital Signs Date Time Temp Pulse Resp B/P Pulse Ox O2 Delivery O2 Flow Rate FiO2 01/12/17 20:00 97.3 92 23 98/85 96 I/O 01/12/17 01/12/17 01/12/17 01/13/17 01/13/17 01/13/17 06:59 14:59 22:59 06:59 14:59 22:59 Intake Total 1360 ml 946 ml Output Total 450 ml 1000 ml Balance -450 ml 360 ml 946 ml Intake Oral 0 ml 0 ml Tube Feeding 760 ml 746 ml Other 600 ml 200 ml Output Urine Total 450 ml 1000 ml # Voids 1 # Bowel Movements 0 0 0 Objective Remarks GENERAL: Well-developed, cachectic and contracted. HEENT: Head is normocephalic without any lesions or masses noted. Facial features are symmetric. Eyes: Extraocular muscles are intact. Conjunctivae were clear. NECK: Trachea midline no deviation. CARDIAC: Regular rhythm, tachycardia noted. S1/S2 are heard. No murmurs gallops or rubs. LUNGS: Clear to auscultation bilaterally. No wheeze, rhonchi or rales. No use of accessory muscles on inspiration or expiration. ABDOMEN: Soft, nontender. Nondistended. Bowel sounds heard in all 4 quadrants. No organomegaly or masses. Negative rebound, negative guarding. PEG tube noted without any excoriation. EXTREMITIES: No edema, pulses are equal bilaterally. No cyanosis or clubbing Procedures 07/19/16 EGD with PEG tube placement 09/27/16 colonoscopy Vascular Central Line Catheter: No A/P Assessment and Plan Neuro-Behcet, history of frontal lobe CVA, encephalopathy, history of meningitis , chronic No new changes on imaging. Patient was followed by neurology. Aphasic at baseline. Continue Imuran, prednisone EEG shows mild to moderate slowing at times of various depending on the epoch, there was no epileptic activity seen Continue PT/OT Palliative care evaluated the patient and is still indicating the patient is making his own decisions, full code and full aggressive measures Blurred vision/double vision, secondary to neuro-Behcet's syndrome Ophthalmology consulted and indicates that his visual problems are secondary to neuro-Behcet's syndrome Recommending immunosuppressive and steroids, which the patient is already on Sinus tachycardia. Stable Discontinue Lopressor due to low blood pressure TSH, free T3, free T4 colon were normal Melena, bright red blood in stool, resolved Status post transfusion, emergency transferred to [facility] hospital, emergent endoscopy GI evaluated and managed patient with emergent colonoscopy showing small ulcer in the colon Continue Prevacid Sepsis, multiple episodes, resolved at this time Patient does have rather significant coccyx decubitus wound: Wound culture with pseudo fluorescens/putida, group D enterococcus VRE which is sensitive to Zosyn. Patient did have one urine culture of Daphney parapsilosis, was treated with fluconazole for 10 days. --Patient had episode of diarrhea, C. difficile cultures performed which was negative. --Possible aseptic meningitis Infectious disease consulted and last seen the patient on 10/18/16, at that time it was indicated to observe off antibiotics. 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 Would benefit from long-term steroids Prerenal azotemia, resolved Continue monitor renal function periodically Hypernatremia, resolved free water flushes 250 cc every 4 hours Monitor sodium level, BMP ordered for 12/20/16 Decreased oral intake and dysphagia on initial presentation Speech therapy following intermittently. S/P barium swallow. Patient with severe dysphagia. GI was consulted and PEG tube was placed. Dietary recommending Glucerna 1.5 at 70 mL's an hour with Maury twice daily, Request dietary reevaluation for bolus feeding Coccyx decubitus. Wound care nurse is following the patient for management Patient with specialty bed Mood disorder, depression Patient was evaluated by psychiatrist. Psychiatrist recommended Prozac Reconsult psychiatry who increased Prozac and started patient on Seroquel Diabetes Glucose well controlled, DVT Prophylaxis: Lovenox, TEDs/SCDs. Discharge Planning Case management for discharge planning, recent records indicate that planning on transferring back to [place], Ede Richardson Jan 13, 2017 08:58
[2017-01-13 20:00] VITALS: BP 108/86; PULSE 81; RESP 18; TEMP 96; O2SAT 99
[2017-01-13] MEDS: QUEtiapine FUMARATE 25 MG TAB PO SCH (21:13)
[2017-01-14] MEDS: azaTHIOprine 50 MG TAB PEG SCH ×2 (06:01→18:36)
[2017-01-14 08:00] VITALS: BP 124/79; PULSE 119; RESP 24; TEMP 98.1; O2SAT 98
--- NOTE | 2017-01-14 09:51 | HHI.PR ---
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 No change in clinical status. Patient denies any complaints Objective Vitals Vital Signs Date Time Temp Pulse Resp B/P Pulse Ox O2 Delivery O2 Flow Rate FiO2 01/14/17 08:00 98.1 119 24 124/79 98 01/13/17 20:00 96.0 81 18 108/86 99 I/O 01/13/17 01/13/17 01/13/17 01/14/17 01/14/17 01/14/17 07:00 15:00 23:00 07:00 15:00 23:00 Intake Total 946 ml 2401 ml 527 ml Output Total 601 ml 350 ml Balance 946 ml 1800 ml 177 ml Intake Oral 0 ml 0 ml Tube Feeding 746 ml 1351 ml 527 ml Tube Irrigant 200 ml Other 200 ml 850 ml Output Urine Total 600 ml 350 ml Stool Total 1 ml # Voids 1 1 # Bowel Movements 0 Objective Remarks GENERAL: Well-developed, cachectic and contracted. HEENT: Head is normocephalic without any lesions or masses noted. Facial features are symmetric. Eyes: Extraocular muscles are intact. Conjunctivae were clear. NECK: Trachea midline no deviation. CARDIAC: Regular rhythm, tachycardia noted. S1/S2 are heard. No murmurs gallops or rubs. LUNGS: Clear to auscultation bilaterally. No wheeze, rhonchi or rales. No use of accessory muscles on inspiration or expiration. ABDOMEN: Soft, nontender. Nondistended. Bowel sounds heard in all 4 quadrants. No organomegaly or masses. Negative rebound, negative guarding. PEG tube noted without any excoriation. EXTREMITIES: No edema, pulses are equal bilaterally. No cyanosis or clubbing Procedures 07/19/16 EGD with PEG tube placement 09/27/16 colonoscopy Urinary Catheter: No Vascular Central Line Catheter: No A/P Assessment and Plan Neuro-Behcet, history of frontal lobe CVA, encephalopathy, history of meningitis , chronic No new changes on imaging. Patient was followed by neurology. Aphasic at baseline. Continue Imuran, prednisone EEG shows mild to moderate slowing at times of various depending on the epoch, there was no epileptic activity seen Continue PT/OT Palliative care evaluated the patient and is still indicating the patient is making his own decisions, full code and full aggressive measures Blurred vision/double vision, secondary to neuro-Behcet's syndrome Ophthalmology consulted and indicates that his visual problems are secondary to neuro-Behcet's syndrome Recommending immunosuppressive and steroids, which the patient is already on Sinus tachycardia. Stable Discontinue Lopressor due to low blood pressure TSH, free T3, free T4 colon were normal Melena, bright red blood in stool, resolved Status post transfusion, emergency transferred to [facility] hospital, emergent endoscopy GI evaluated and managed patient with emergent colonoscopy showing small ulcer in the colon Continue Prevacid Sepsis, multiple episodes, resolved at this time Patient does have rather significant coccyx decubitus wound: Wound culture with pseudo fluorescens/putida, group D enterococcus VRE which is sensitive to Zosyn. Patient did have one urine culture of Daphney parapsilosis, was treated with fluconazole for 10 days. --Patient had episode of diarrhea, C. difficile cultures performed which was negative. --Possible aseptic meningitis Infectious disease consulted and last seen the patient on 10/18/16, at that time it was indicated to observe off antibiotics. 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 Would benefit from long-term steroids Prerenal azotemia, resolved Continue monitor renal function periodically Hypernatremia, resolved free water flushes 250 cc every 4 hours Monitor sodium level, BMP ordered for 12/20/16 Decreased oral intake and dysphagia on initial presentation Speech therapy following intermittently. S/P barium swallow. Patient with severe dysphagia. GI was consulted and PEG tube was placed. Dietary recommending Glucerna 1.5 at 70 mL's an hour with Maury twice daily, Request dietary reevaluation for bolus feeding Coccyx decubitus. Wound care nurse is following the patient for management Patient with specialty bed Mood disorder, depression Patient was evaluated by psychiatrist. Psychiatrist recommended Prozac Reconsult psychiatry who increased Prozac and started patient on Seroquel Diabetes Glucose well controlled, DVT Prophylaxis: Lovenox, TEDs/SCDs. Patient examined, records reviewed. No change in treatment plan Discharge Planning Case management for discharge planning, recent records indicate that planning on transferring back to [place], Ede Richardson Jan 14, 2017 09:51
[2017-01-14] MEDS: LANSOPRAZOLE SOLUTAB 30 MG TAB PEG SCH ×2 (10:22→22:13)
[2017-01-14] MEDS: LACTOBACILLUS ACIDOPHILUS TAB PEG SCH ×2 (10:22→22:12)
[2017-01-14] MEDS: predniSONE 20 MG TAB PEG SCH (10:23)
[2017-01-14] MEDS: FLUoxetine HCL LIQUID 20 MG/5 ML CUP PEG SCH (10:23)
[2017-01-14] MEDS: ENOXAPARIN SODIUM 40 MG/0.4 ML SYRINGE SQ SCH (10:24)
[2017-01-14] MEDS: SENNOSIDES SYRUP 8.8 MG/5 ML CUP PEG SCH (10:24)
[2017-01-14] MEDS: LACTIC ACID (AMMONIUM LACTATE) 12% LOTION 225 GM BTL TOPICAL SCH ×2 (10:25→22:14)
[2017-01-14] MEDS: COLLAGENASE OINT 30 GM TUBE TOP SCH (10:28)
[2017-01-14] MEDS: JUVEN POWDER 1 PACK G-TUBE SCH ×2 (10:41→21:00)
[2017-01-14 20:00] VITALS: BP 108/88; PULSE 89; RESP 20; TEMP 97.5; O2SAT 95
[2017-01-14] MEDS: QUEtiapine FUMARATE 25 MG TAB PO SCH (22:13)
[2017-01-15] MEDS: azaTHIOprine 50 MG TAB PEG SCH ×2 (06:53→18:24)
[2017-01-15 08:00] VITALS: BP 106/84; PULSE 97; RESP 23; TEMP 97; O2SAT 99
--- NOTE | 2017-01-15 09:54 | HHI.PR ---
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 Patient denies any new complaints. No change in clinical status. Awaiting case management for discharge planning Objective Vitals Vital Signs Date Time Temp Pulse Resp B/P Pulse Ox O2 Delivery O2 Flow Rate FiO2 01/14/17 20:00 97.5 89 20 108/88 95 I/O 01/14/17 01/14/17 01/14/17 01/15/17 01/15/17 01/15/17 07:00 15:00 23:00 07:00 15:00 23:00 Intake Total 527 ml 0 ml 1340 ml Output Total 350 ml 600 ml 550 ml 300 ml Balance 177 ml -600 ml 790 ml -300 ml Intake Oral 0 ml 0 ml Tube Feeding 527 ml 840 ml Other 500 ml Output Urine Total 350 ml 600 ml 550 ml 300 ml # Voids 1 # Bowel Movements 1 1 0 Objective Remarks GENERAL: Well-developed, cachectic and contracted. HEENT: Head is normocephalic without any lesions or masses noted. Facial features are symmetric. Eyes: Extraocular muscles are intact. Conjunctivae were clear. NECK: Trachea midline no deviation. CARDIAC: Regular rhythm, tachycardia noted. S1/S2 are heard. No murmurs gallops or rubs. LUNGS: Clear to auscultation bilaterally. No wheeze, rhonchi or rales. No use of accessory muscles on inspiration or expiration. ABDOMEN: Soft, nontender. Nondistended. Bowel sounds heard in all 4 quadrants. No organomegaly or masses. Negative rebound, negative guarding. PEG tube noted without any excoriation. EXTREMITIES: No edema, pulses are equal bilaterally. No cyanosis or clubbing Procedures 07/19/16 EGD with PEG tube placement 09/27/16 colonoscopy Urinary Catheter: No Vascular Central Line Catheter: No A/P Assessment and Plan Neuro-Behcet, history of frontal lobe CVA, encephalopathy, history of meningitis , chronic No new changes on imaging. Patient was followed by neurology. Aphasic at baseline. Continue Imuran, prednisone EEG shows mild to moderate slowing at times of various depending on the epoch, there was no epileptic activity seen Continue PT/OT Palliative care evaluated the patient and is still indicating the patient is making his own decisions, full code and full aggressive measures Blurred vision/double vision, secondary to neuro-Behcet's syndrome Ophthalmology consulted and indicates that his visual problems are secondary to neuro-Behcet's syndrome Recommending immunosuppressive and steroids, which the patient is already on Sinus tachycardia. Stable Discontinue Lopressor due to low blood pressure TSH, free T3, free T4 colon were normal Melena, bright red blood in stool, resolved Status post transfusion, emergency transferred to [facility] hospital, emergent endoscopy GI evaluated and managed patient with emergent colonoscopy showing small ulcer in the colon Continue Prevacid Sepsis, multiple episodes, resolved at this time Patient does have rather significant coccyx decubitus wound: Wound culture with pseudo fluorescens/putida, group D enterococcus VRE which is sensitive to Zosyn. Patient did have one urine culture of Daphney parapsilosis, was treated with fluconazole for 10 days. --Patient had episode of diarrhea, C. difficile cultures performed which was negative. --Possible aseptic meningitis Infectious disease consulted and last seen the patient on 10/18/16, at that time it was indicated to observe off antibiotics. 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 Would benefit from long-term steroids Prerenal azotemia, resolved Continue monitor renal function periodically Hypernatremia, resolved free water flushes 250 cc every 4 hours Monitor sodium level, BMP ordered for 12/20/16 Decreased oral intake and dysphagia on initial presentation Speech therapy following intermittently. S/P barium swallow. Patient with severe dysphagia. GI was consulted and PEG tube was placed. Dietary recommending Glucerna 1.5 at 70 mL's an hour with Maury twice daily, Request dietary reevaluation for bolus feeding Coccyx decubitus. Wound care nurse is following the patient for management Patient with specialty bed Mood disorder, depression Patient was evaluated by psychiatrist. Psychiatrist recommended Prozac Reconsult psychiatry who increased Prozac and started patient on Seroquel Diabetes Glucose well controlled, DVT Prophylaxis: Lovenox, TEDs/SCDs. Patient examined, records reviewed. No change in treatment plan Discharge Planning Case management for discharge planning, recent records indicate that planning on transferring back to [place], Ede Richardson Jan 15, 2017 09:53
[2017-01-15] MEDS: FLUoxetine HCL LIQUID 20 MG/5 ML CUP PEG SCH (10:13)
[2017-01-15] MEDS: ENOXAPARIN SODIUM 40 MG/0.4 ML SYRINGE SQ SCH (10:13)
[2017-01-15] MEDS: SENNOSIDES SYRUP 8.8 MG/5 ML CUP PEG SCH (10:13)
[2017-01-15] MEDS: LANSOPRAZOLE SOLUTAB 30 MG TAB PEG SCH ×2 (10:14→22:44)
[2017-01-15] MEDS: LACTOBACILLUS ACIDOPHILUS TAB PEG SCH ×2 (10:14→22:44)
[2017-01-15] MEDS: predniSONE 20 MG TAB PEG SCH (10:14)
[2017-01-15] MEDS: LACTIC ACID (AMMONIUM LACTATE) 12% LOTION 225 GM BTL TOPICAL SCH ×2 (10:15→22:45)
[2017-01-15] MEDS: COLLAGENASE OINT 30 GM TUBE TOP SCH (10:15)
[2017-01-15] MEDS: JUVEN POWDER 1 PACK G-TUBE SCH ×2 (10:16→21:00)
[2017-01-15 20:00] VITALS: BP 105/86; PULSE 80; RESP 16; TEMP 97.5; O2SAT 98
[2017-01-15] MEDS: QUEtiapine FUMARATE 25 MG TAB PO SCH (22:44)
[2017-01-16] MEDS: azaTHIOprine 50 MG TAB PEG SCH ×2 (06:05→17:42)
[2017-01-16] MEDS: JUVEN POWDER 1 PACK G-TUBE SCH ×2 (09:00→21:00)
--- NOTE | 2017-01-16 09:29 | HHI.PR ---
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 Patient denies any new complaints. No change in clinical status. Awaiting case management for discharge plan Objective Vitals Vital Signs Date Time Temp Pulse Resp B/P Pulse Ox O2 Delivery O2 Flow Rate FiO2 01/15/17 20:00 97.5 80 16 105/86 98 I/O 01/15/17 01/15/17 01/15/17 01/16/17 01/16/17 01/16/17 07:00 15:00 23:00 07:00 15:00 23:00 Intake Total 500 ml 1090 ml Output Total 300 ml 350 ml 525 ml 200 ml Balance -300 ml 150 ml 565 ml -200 ml Tube Feeding 840 ml Other 500 ml 250 ml Output Urine Total 300 ml 350 ml 525 ml 200 ml # Bowel Movements 0 1 0 1 Objective Remarks GENERAL: Well-developed, cachectic and contracted. HEENT: Head is normocephalic without any lesions or masses noted. Facial features are symmetric. Eyes: Extraocular muscles are intact. Conjunctivae were clear. NECK: Trachea midline no deviation. CARDIAC: Regular rhythm, tachycardia noted. S1/S2 are heard. No murmurs gallops or rubs. LUNGS: Clear to auscultation bilaterally. No wheeze, rhonchi or rales. No use of accessory muscles on inspiration or expiration. ABDOMEN: Soft, nontender. Nondistended. Bowel sounds heard in all 4 quadrants. No organomegaly or masses. Negative rebound, negative guarding. PEG tube noted without any excoriation. EXTREMITIES: No edema, pulses are equal bilaterally. No cyanosis or clubbing Procedures 07/19/16 EGD with PEG tube placement 09/27/16 colonoscopy Urinary Catheter: No Vascular Central Line Catheter: No A/P Assessment and Plan Neuro-Behcet, history of frontal lobe CVA, encephalopathy, history of meningitis , chronic No new changes on imaging. Patient was followed by neurology. Aphasic at baseline. Continue Imuran, prednisone EEG shows mild to moderate slowing at times of various depending on the epoch, there was no epileptic activity seen Continue PT/OT Palliative care evaluated the patient and is still indicating the patient is making his own decisions, full code and full aggressive measures Blurred vision/double vision, secondary to neuro-Behcet's syndrome Ophthalmology consulted and indicates that his visual problems are secondary to neuro-Behcet's syndrome Recommending immunosuppressive and steroids, which the patient is already on Sinus tachycardia. Stable Discontinue Lopressor due to low blood pressure TSH, free T3, free T4 colon were normal Melena, bright red blood in stool, resolved Status post transfusion, emergency transferred to [facility], emergent endoscopy GI evaluated and managed patient with emergent colonoscopy showing small ulcer in the colon Continue Prevacid Sepsis, multiple episodes, resolved at this time Patient does have rather significant coccyx decubitus wound: Wound culture with pseudo fluorescens/putida, group D enterococcus VRE which is sensitive to Zosyn. Patient did have one urine culture of Daphney parapsilosis, was treated with fluconazole for 10 days. --Patient had episode of diarrhea, C. difficile cultures performed which was negative. --Possible aseptic meningitis Infectious disease consulted and last seen the patient on 10/18/16, at that time it was indicated to observe off antibiotics. 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 Would benefit from long-term steroids Prerenal azotemia, resolved Continue monitor renal function periodically Hypernatremia, resolved free water flushes 250 cc every 4 hours Monitor sodium level, BMP ordered for 12/20/16 Decreased oral intake and dysphagia on initial presentation Speech therapy following intermittently. S/P barium swallow. Patient with severe dysphagia. GI was consulted and PEG tube was placed. Dietary recommending Glucerna 1.5 at 70 mL's an hour with Maury twice daily, Request dietary reevaluation for bolus feeding Coccyx decubitus. Wound care nurse is following the patient for management Patient with specialty bed Mood disorder, depression Patient was evaluated by psychiatrist. Prozac 40 mg daily Seroquel 25 mg at bedtime Diabetes Glucose well controlled, DVT Prophylaxis: Lovenox, TEDs/SCDs. Patient examined, records reviewed. No change in treatment plan Discharge Planning Case management for discharge planning, recent records indicate that planning on transferring back to [place], Ede Richardson Jan 16, 2017 09:29
[2017-01-16 09:58] VITALS: BP 101/79; PULSE 94; RESP 18; TEMP 96.5; O2SAT 97
[2017-01-16] MEDS: ENOXAPARIN SODIUM 40 MG/0.4 ML SYRINGE SQ SCH (09:58)
[2017-01-16] MEDS: LANSOPRAZOLE SOLUTAB 30 MG TAB PEG SCH ×2 (09:59→21:58)
[2017-01-16] MEDS: FLUoxetine HCL LIQUID 20 MG/5 ML CUP PEG SCH (09:59)
[2017-01-16] MEDS: SENNOSIDES SYRUP 8.8 MG/5 ML CUP PEG SCH (09:59)
[2017-01-16] MEDS: LACTIC ACID (AMMONIUM LACTATE) 12% LOTION 225 GM BTL TOPICAL SCH ×2 (10:00→21:59)
[2017-01-16] MEDS: predniSONE 20 MG TAB PEG SCH (10:00)
[2017-01-16] MEDS: LACTOBACILLUS ACIDOPHILUS TAB PEG SCH ×2 (10:00→21:58)
[2017-01-16] MEDS: COLLAGENASE OINT 30 GM TUBE TOP SCH (10:00)
[2017-01-16] MEDS: QUEtiapine FUMARATE 25 MG TAB PO SCH (21:58)
[2017-01-16 22:00] VITALS: BP 97/79; PULSE 86; RESP 24; TEMP 98.1; O2SAT 95
[2017-01-17] MEDS: azaTHIOprine 50 MG TAB PEG SCH ×2 (06:00→17:05)
[2017-01-17 08:41] VITALS: BP 109/85; PULSE 91; RESP 18; TEMP 97.6; O2SAT 93
[2017-01-17] MEDS: SENNOSIDES SYRUP 8.8 MG/5 ML CUP PEG SCH (09:00)
[2017-01-17] MEDS: predniSONE 20 MG TAB PEG SCH (10:10)
[2017-01-17] MEDS: ENOXAPARIN SODIUM 40 MG/0.4 ML SYRINGE SQ SCH (10:11)
[2017-01-17] MEDS: LANSOPRAZOLE SOLUTAB 30 MG TAB PEG SCH ×2 (10:11→20:20)
[2017-01-17] MEDS: JUVEN POWDER 1 PACK G-TUBE SCH ×2 (10:11→20:21)
[2017-01-17] MEDS: FLUoxetine HCL LIQUID 20 MG/5 ML CUP PEG SCH (10:11)
[2017-01-17] MEDS: LACTOBACILLUS ACIDOPHILUS TAB PEG SCH ×2 (10:13→20:20)
[2017-01-17] MEDS: LACTIC ACID (AMMONIUM LACTATE) 12% LOTION 225 GM BTL TOPICAL SCH ×2 (10:13→20:21)
[2017-01-17] MEDS: COLLAGENASE OINT 30 GM TUBE TOP SCH (10:13)
--- NOTE | 2017-01-17 10:50 | HHI.PR ---
Subjective Remarks Follow-up for neuro Behet's syndrome. Admits to feeling uncomfortable currently in the bed. Patient still admits to blurred vision. Denies any pain or shortness of breath. Objective Vitals Vital Signs Date Time Temp Pulse Resp B/P Pulse Ox O2 Delivery O2 Flow Rate FiO2 01/17/17 08:41 97.6 91 18 109/85 93 01/16/17 22:00 98.1 86 24 97/79 95 I/O 01/16/17 01/16/17 01/16/17 01/17/17 01/17/17 01/17/17 07:00 15:00 23:00 07:00 15:00 23:00 Intake Total 250 ml 2142 ml 1418 ml Output Total 200 ml 300 ml Balance -200 ml 250 ml 1842 ml 1418 ml Intake Oral 0 ml 480 ml Tube Feeding 1392 ml 538 ml Tube Irrigant 250 ml 400 ml Other 250 ml 500 ml Output Urine Total 200 ml 300 ml # Voids 2 # Bowel Movements 1 0 0 Objective Remarks GENERAL: Thin patient in no apparent distress. EYES: No conjunctival injection bilaterally. CARDIOVASCULAR: Tachycardic rate with regular rhythm. RESPIRATORY: Transmitted grunting upper respiratory sounds auscultated over RLL. No rales or wheezing. GASTROINTESTINAL: Abdomen soft, non-tender, nondistended. Feeding tube present. NEUROLOGICAL: Awake and alert. Nods head to answer questions. PSYCHIATRIC: Stable affect. 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 Blurred vision is most likely related to his neuro Behet's syndrome. -Ophthalmology evaluated patient on 01/11/17. 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 Recommends immunosuppressants and steroids which patient is currently on. Neuro-Behcet, history of frontal lobe CVA, encephalopathy, history of meningitis , chronic No new changes on imaging. Patient followed by neurology. Aphasic at baseline. Neurology following the patient Continue Imuran, prednisone EEG shows mild to moderate slowing at times of various depending on the epoch, there was no epileptic activity seen Continue PT/OT Palliative care following the patient and is still indicating the patient is making his own decisions, full code and full aggressive measures [place] as needed for pain. Sinus tachycardia: Stable. S/p Lopressor TSH, free T3, free T4 were normal Melena, bright red blood in stool: Resolved Status post transfusion, emergently transferred to [facility], emergent endoscopy GI evaluated and managed patient with emergent colonoscopy showing small ulcer in the colon Continue Prevacid Hemoglobin stable Sepsis, multiple episodes: Resolved. Patient does have rather significant coccyx decubitus wound: Wound culture with pseudo fluorescens/putida, group D enterococcus VRE which is sensitive to Zosyn. Patient did have one urine culture of Daphney parapsilosis, was treated with fluconazole for 10 days. --Patient had episode of diarrhea, C. difficile cultures performed which was negative. --Possible aseptic meningitis Infectious disease consulted and last seen the patient on 10/18/16, at that time it was indicated to observe off antibiotics. 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 Would benefit from long-term steroids. Hypotension: Improved -Repeat BMP 12/25 with improvement. Nurse states patient is receiving approximately 200 cc of free water flushes every 4 hours. -Lopressor discontinued on 01/02. Prerenal azotemia: Improved. BUN decreased to 21. Continue to monitor renal function periodically. Hypernatremia and hyperchloremia: Resolved. Continue free water flushes 200 cc every 4 hours Diabetes: stable HbA1c 6.6 on 09/25/16. Glucose was well controlled so Accu-Cheks and sliding scale insulin were discontinued. Decreased oral intake and dysphagia on initial presentation Speech therapy following intermittently. S/P barium swallow. Patient with severe dysphagia. GI consulted and PEG tube was placed. Dietary recommending Glucerna 1.5 at 70 mL/hour with Maury twice daily. Coccyx decubitus: Wound care nurse is following the patient for management. Recommends continuing to change dressings with Santyl ointment and cleansing with normal saline only. Apply nickly thick santyl ointment to slightly moistened maxorb II dressing loosely packed in wound bed and cover with bordered gauze, to be changed daily. Specialty bed Ankle ulcer: R lateral malleolus. -Foam boots. Wound care has evaluated; paint with skin prep or betadine and leave open to air. Depression: stable Patient was evaluated by psychiatrist. Continue Prozac 40 mg daily and Seroquel 25 mg HS. DVT Prophylaxis: Lovenox, TEDs/SCDs. Discharge Planning 12/12/16: Patient's income goes to court ordered child support making it difficult for placement as patient needs additional funds to offset what's not covered by Medicaid; CM is awaiting to speak with significant other in regards to returning home with care provided by family. 12/21/16: I spoke with Gustavo Louis, therapeutic case manager, who is going to try to arrange for patient to be transported back to [place] to live with mother. 01/05/17: CM spoke with consulate general in [place] and requests a written letter which was sent 01/04/17. He is to review and discuss with [facility] regarding patient transfer to [place] to be cared for by mother. Problem Qualifiers (1) GI bleed: Qualified Code: K92.2 - Gastrointestinal hemorrhage, unspecified gastrointestinal hemorrhage type (2) UTI (urinary tract infection): Qualified Code: N30.00 - Acute cystitis without hematuria (3) Effusion of hip joint: Qualified Code: M25.459 - Effusion of hip joint, unspecified laterality Mari Talamantes Jan 17, 2017 10:50
[2017-01-17 20:00] VITALS: BP 102/85; PULSE 95; RESP 18; TEMP 98.6; O2SAT 99
[2017-01-17] MEDS: QUEtiapine FUMARATE 25 MG TAB PO SCH (20:20)
[2017-01-18] MEDS: azaTHIOprine 50 MG TAB PEG SCH ×2 (05:25→17:40)
[2017-01-18 08:00] VITALS: BP 105/85; PULSE 98; RESP 18; TEMP 99; O2SAT 96
[2017-01-18] MEDS: JUVEN POWDER 1 PACK G-TUBE SCH ×2 (08:39→20:41)
[2017-01-18] MEDS: FLUoxetine HCL LIQUID 20 MG/5 ML CUP PEG SCH (08:39)
[2017-01-18] MEDS: predniSONE 20 MG TAB PEG SCH (08:40)
[2017-01-18] MEDS: ENOXAPARIN SODIUM 40 MG/0.4 ML SYRINGE SQ SCH (08:40)
[2017-01-18] MEDS: SENNOSIDES SYRUP 8.8 MG/5 ML CUP PEG SCH (08:40)
[2017-01-18] MEDS: LACTOBACILLUS ACIDOPHILUS TAB PEG SCH ×2 (08:40→20:29)
[2017-01-18] MEDS: LANSOPRAZOLE SOLUTAB 30 MG TAB PEG SCH ×2 (08:40→20:29)
[2017-01-18] MEDS: COLLAGENASE OINT 30 GM TUBE TOP SCH (08:41)
[2017-01-18] MEDS: LACTIC ACID (AMMONIUM LACTATE) 12% LOTION 225 GM BTL TOPICAL SCH ×2 (08:41→20:30)
--- NOTE | 2017-01-18 09:58 | HHI.PR ---
Subjective Remarks Follow-up for neuro Behet's syndrome. Patient admits to being uncomfortable and the nurse tells me he likes to lay on his back. He denies any shortness of breath. Denies any abdominal pain. Objective Vitals Vital Signs Date Time Temp Pulse Resp B/P Pulse Ox O2 Delivery O2 Flow Rate FiO2 01/17/17 20:00 98.6 95 18 102/85 99 I/O 01/17/17 01/17/17 01/17/17 01/18/17 01/18/17 01/18/17 06:59 14:59 22:59 06:59 14:59 22:59 Intake Total 1418 ml 1140 ml 0 ml 250 ml Output Total 300 ml 500 ml Balance 1418 ml 840 ml -500 ml 250 ml Intake Oral 480 ml 0 ml Tube Feeding 538 ml 840 ml Tube Irrigant 400 ml 300 ml Other 250 ml Output Urine Total 300 ml 500 ml # Voids 2 # Bowel Movements 0 1 Objective Remarks GENERAL: Thin patient in no apparent distress. CARDIOVASCULAR: Tachycardic rate 108 bpm with regular rhythm. RESPIRATORY: Coarse breath sounds bilaterally likely attributed to transmitted upper respiratory grunting. GASTROINTESTINAL: Abdomen soft, non-tender, nondistended. Feeding tube present. NEUROLOGICAL: Awake and alert. Nods head to answer questions. PSYCHIATRIC: Stable affect. 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 Blurred vision is most likely related to his neuro Behet's syndrome. -Ophthalmology evaluated patient on 01/11/17. 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 Recommends immunosuppressants and steroids which patient is currently on. Neuro-Behcet, history of frontal lobe CVA, encephalopathy, history of meningitis , chronic No new changes on imaging. Patient followed by neurology. Aphasic at baseline. Neurology following the patient Continue Imuran, prednisone EEG shows mild to moderate slowing at times of various depending on the epoch, there was no epileptic activity seen Continue PT/OT Palliative care following the patient and is still indicating the patient is making his own decisions, full code and full aggressive measures [place] as needed for pain. Sinus tachycardia: Stable. S/p Lopressor TSH, free T3, free T4 were normal Melena, bright red blood in stool: Resolved Status post transfusion, emergently transferred to [facility], emergent endoscopy GI evaluated and managed patient with emergent colonoscopy showing small ulcer in the colon Continue Prevacid Hemoglobin stable Sepsis, multiple episodes: Resolved. Patient does have rather significant coccyx decubitus wound: Wound culture with pseudo fluorescens/putida, group D enterococcus VRE which is sensitive to Zosyn. Patient did have one urine culture of Daphney parapsilosis, was treated with fluconazole for 10 days. --Patient had episode of diarrhea, C. difficile cultures performed which was negative. --Possible aseptic meningitis Infectious disease consulted and last seen the patient on 10/18/16, at that time it was indicated to observe off antibiotics. 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 Would benefit from long-term steroids. Hypotension: Improved -Repeat BMP 12/25 with improvement. Nurse states patient is receiving approximately 200 cc of free water flushes every 4 hours. -Lopressor discontinued on 01/02. Prerenal azotemia: Improved. BUN decreased to 21. Continue to monitor renal function periodically. Hypernatremia and hyperchloremia: Resolved. Continue free water flushes 200 cc every 4 hours Diabetes: stable HbA1c 6.6 on 09/25/16. Glucose was well controlled so Accu-Cheks and sliding scale insulin were discontinued. Decreased oral intake and dysphagia on initial presentation Speech therapy following intermittently. S/P barium swallow. Patient with severe dysphagia. GI consulted and PEG tube was placed. Dietary recommending Glucerna 1.5 at 70 mL/hour with Maury twice daily. Coccyx decubitus: Wound care nurse is following the patient for management. Recommends continuing to change dressings with Santyl ointment and cleansing with normal saline only. Apply nickly thick santyl ointment to slightly moistened maxorb II dressing loosely packed in wound bed and cover with bordered gauze, to be changed daily. Specialty bed Ankle ulcer: R lateral malleolus. -Foam boots. Wound care has evaluated; paint with skin prep or betadine and leave open to air. Depression: stable Patient was evaluated by psychiatrist. Continue Prozac 40 mg daily and Seroquel 25 mg HS. DVT Prophylaxis: Lovenox, TEDs/SCDs. Discharge Planning 12/12/16: Patient's income goes to court ordered child support making it difficult for placement as patient needs additional funds to offset what's not covered by Medicaid; CM is awaiting to speak with significant other in regards to returning home with care provided by family. 12/21/16: I spoke with Gustavo Louis, telephonic case manager, who is going to try to arrange for patient to be transported back to [place] to live with mother. 01/05/17: CM spoke with consulate general in [place] and requests a written letter which was sent 01/04/17. He is to review and discuss with [facility] government regarding patient transfer to [place] to be cared for by mother. Problem Qualifiers (1) GI bleed: Qualified Code: K92.2 - Gastrointestinal hemorrhage, unspecified gastrointestinal hemorrhage type (2) UTI (urinary tract infection): Qualified Code: N30.00 - Acute cystitis without hematuria (3) Effusion of hip joint: Qualified Code: M25.459 - Effusion of hip joint, unspecified laterality Mari Talamantes Jan 18, 2017 09:58
[2017-01-18 20:00] VITALS: BP 105/88; PULSE 85; RESP 20; TEMP 98.2; O2SAT 97
[2017-01-18] MEDS: QUEtiapine FUMARATE 25 MG TAB PO SCH (20:29)
[2017-01-19] MEDS: azaTHIOprine 50 MG TAB PEG SCH ×2 (05:25→18:46)
[2017-01-19 08:00] VITALS: BP 100/80; PULSE 78; RESP 18; TEMP 98.2; O2SAT 94
[2017-01-19] MEDS: SENNOSIDES SYRUP 8.8 MG/5 ML CUP PEG SCH (10:37)
[2017-01-19] MEDS: predniSONE 20 MG TAB PEG SCH (10:38)
[2017-01-19] MEDS: LANSOPRAZOLE SOLUTAB 30 MG TAB PEG SCH ×2 (10:38→20:13)
[2017-01-19] MEDS: FLUoxetine HCL LIQUID 20 MG/5 ML CUP PEG SCH (10:38)
[2017-01-19] MEDS: ENOXAPARIN SODIUM 40 MG/0.4 ML SYRINGE SQ SCH (10:41)
[2017-01-19] MEDS: JUVEN POWDER 1 PACK G-TUBE SCH ×2 (10:55→20:22)
[2017-01-19] MEDS: COLLAGENASE OINT 30 GM TUBE TOP SCH (10:57)
[2017-01-19] MEDS: LACTIC ACID (AMMONIUM LACTATE) 12% LOTION 225 GM BTL TOPICAL SCH ×2 (10:57→20:14)
[2017-01-19] MEDS: LACTOBACILLUS ACIDOPHILUS TAB PEG SCH ×2 (10:58→20:13)
--- NOTE | 2017-01-19 11:48 | HHI.PR ---
Subjective Remarks Follow-up for neuro Behcet's syndrome. Patient admits to feeling uncomfortable , position-kraft. Denies any shortness of breath. Objective Vitals Vital Signs Date Time Temp Pulse Resp B/P Pulse Ox O2 Delivery O2 Flow Rate FiO2 01/19/17 08:00 98.2 78 18 100/80 94 01/18/17 20:00 98.2 85 20 105/88 97 I/O 01/18/17 01/18/17 01/18/17 01/19/17 01/19/17 01/19/17 06:59 14:59 22:59 06:59 14:59 22:59 Intake Total 0 ml 500 ml 630 ml Output Total 500 ml 900 ml 100 ml Balance -500 ml 500 ml -270 ml -100 ml Intake Oral 0 ml Tube Feeding 630 ml Other 500 ml Output Urine Total 500 ml 900 ml 100 ml # Bowel Movements 0 0 Objective Remarks GENERAL: Thin patient in no apparent distress. CARDIOVASCULAR: Tachycardic rate with regular rhythm. RESPIRATORY: Mildly coarse breath sounds-transmitted upper respiratory snorting. GASTROINTESTINAL: Abdomen soft, non-tender, nondistended. Feeding tube present. NEUROLOGICAL: Awake and alert. Nods head to answer questions. PSYCHIATRIC: Stable affect. 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 Blurred vision is most likely related to his neuro Behet's syndrome. -Ophthalmology evaluated patient on 01/11/17. 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 Recommends immunosuppressants and steroids which patient is currently on. Neuro-Behcet, history of frontal lobe CVA, encephalopathy, history of meningitis , chronic No new changes on imaging. Patient followed by neurology. Aphasic at baseline. Neurology following the patient Continue Imuran, prednisone EEG shows mild to moderate slowing at times of various depending on the epoch, there was no epileptic activity seen Continue PT/OT Palliative care following the patient and is still indicating the patient is making his own decisions, full code and full aggressive measures [place] as needed for pain. Sinus tachycardia: Stable. S/p Lopressor TSH, free T3, free T4 were normal Melena, bright red blood in stool: Resolved Status post transfusion, emergently transferred to [facility], emergent endoscopy GI evaluated and managed patient with emergent colonoscopy showing small ulcer in the colon Continue Prevacid Hemoglobin stable Sepsis, multiple episodes: Resolved. Patient does have rather significant coccyx decubitus wound: Wound culture with pseudo fluorescens/putida, group D enterococcus VRE which is sensitive to Zosyn. Patient did have one urine culture of Daphney parapsilosis, was treated with fluconazole for 10 days. --Patient had episode of diarrhea, C. difficile cultures performed which was negative. --Possible aseptic meningitis Infectious disease consulted and last seen the patient on 10/18/16, at that time it was indicated to observe off antibiotics. 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 Would benefit from long-term steroids. Hypotension: Improved -Repeat BMP 12/25 with improvement. Nurse states patient is receiving approximately 200 cc of free water flushes every 4 hours. -Lopressor discontinued on 01/02. Prerenal azotemia: Improved. BUN decreased to 21. Continue to monitor renal function periodically. Hypernatremia and hyperchloremia: Resolved. Continue free water flushes 200 cc every 4 hours Diabetes: stable HbA1c 6.6 on 09/25/16. Glucose was well controlled so Accu-Cheks and sliding scale insulin were discontinued. Decreased oral intake and dysphagia on initial presentation Speech therapy following intermittently. S/P barium swallow. Patient with severe dysphagia. GI consulted and PEG tube was placed. Dietary recommending Glucerna 1.5 at 70 mL/hour with Maury twice daily. Coccyx decubitus: Wound care nurse is following the patient for management. Recommends continuing to change dressings with Santyl ointment and cleansing with normal saline only. Apply nickly thick santyl ointment to slightly moistened maxorb II dressing loosely packed in wound bed and cover with bordered gauze, to be changed daily. Specialty bed Ankle ulcer: R lateral malleolus. -Foam boots. Wound care has evaluated; paint with skin prep or betadine and leave open to air. Depression: stable Patient was evaluated by psychiatrist. Continue Prozac 40 mg daily and Seroquel 25 mg HS. DVT Prophylaxis: Lovenox, TEDs/SCDs. Discharge Planning 12/12/16: Patient's income goes to court ordered child support making it difficult for placement as patient needs additional funds to offset what's not covered by Medicaid; CM is awaiting to speak with significant other in regards to returning home with care provided by family. 12/21/16: I spoke with Gustavo Louis, case resource manager, who is going to try to arrange for patient to be transported back to [place] to live with mother. 01/05/17: CM spoke with consulate general in [place] and requests a written letter which was sent 01/04/17. He is to review and discuss with [facility] government regarding patient transfer to [place] to be cared for by mother. Problem Qualifiers (1) GI bleed: Qualified Code: K92.2 - Gastrointestinal hemorrhage, unspecified gastrointestinal hemorrhage type (2) UTI (urinary tract infection): Qualified Code: N30.00 - Acute cystitis without hematuria (3) Effusion of hip joint: Qualified Code: M25.459 - Effusion of hip joint, unspecified laterality Mari Talamantes Jan 19, 2017 11:48
[2017-01-19 20:00] VITALS: BP 103/79; PULSE 84; RESP 20; TEMP 97.2; O2SAT 98
[2017-01-19] MEDS: QUEtiapine FUMARATE 25 MG TAB PO SCH (20:13)
[2017-01-20] MEDS: azaTHIOprine 50 MG TAB PEG SCH ×2 (05:40→18:33)
[2017-01-20 08:00] VITALS: BP 99/81; PULSE 101; RESP 17; TEMP 98.7; O2SAT 94
[2017-01-20] MEDS: SENNOSIDES SYRUP 8.8 MG/5 ML CUP PEG SCH (09:00)
[2017-01-20] MEDS: JUVEN POWDER 1 PACK G-TUBE SCH ×2 (09:00→21:18)
[2017-01-20] MEDS: ENOXAPARIN SODIUM 40 MG/0.4 ML SYRINGE SQ SCH (09:24)
[2017-01-20] MEDS: FLUoxetine HCL LIQUID 20 MG/5 ML CUP PEG SCH (09:24)
[2017-01-20] MEDS: LACTOBACILLUS ACIDOPHILUS TAB PEG SCH ×2 (09:25→21:17)
[2017-01-20] MEDS: LANSOPRAZOLE SOLUTAB 30 MG TAB PEG SCH ×2 (09:25→21:17)
[2017-01-20] MEDS: predniSONE 20 MG TAB PEG SCH (09:25)
[2017-01-20] MEDS: COLLAGENASE OINT 30 GM TUBE TOP SCH (09:26)
[2017-01-20] MEDS: LACTIC ACID (AMMONIUM LACTATE) 12% LOTION 225 GM BTL TOPICAL SCH ×2 (09:26→21:18)
--- NOTE | 2017-01-20 11:31 | HHI.PR ---
Subjective Remarks Follow-up for neuro-Behet's syndrome. Patient's ex- and son are at bedside. The patient again complains of blurred vision. The nurse states the patient denies having any pain or itching in the eye. The patient does feel uncomfortable in regards to his position in the bed. Objective Vitals Vital Signs Date Time Temp Pulse Resp B/P Pulse Ox O2 Delivery O2 Flow Rate FiO2 01/20/17 08:00 98.7 101 17 99/81 94 01/19/17 20:00 97.2 84 20 103/79 98 Manual Cuff/Auscultation I/O 01/19/17 01/19/17 01/19/17 01/20/17 01/20/17 01/20/17 06:59 14:59 22:59 06:59 14:59 22:59 Intake Total 1340 ml 250 ml Output Total 100 ml 851 ml 375 ml Balance -100 ml 489 ml -125 ml Intake Oral 0 ml 0 ml Tube Feeding 840 ml Other 500 ml 250 ml Output Urine Total 100 ml 850 ml 375 ml Stool Total 1 ml # Bowel Movements 0 0 0 Objective Remarks GENERAL: Thin patient in no apparent distress. EYES: Conjunctival injection noted over the lower half of the right eye and around the iris. The right pupil appears somewhat smaller than the left although pupils do appear to be reactive. CARDIOVASCULAR: Tachycardic rate with regular rhythm. RESPIRATORY: Coarse breath sounds/transmitted upper respiratory sounds RLL. GASTROINTESTINAL: Abdomen soft, non-tender, nondistended. Feeding tube present. NEUROLOGICAL: Awake and alert. Nods head to answer questions. PSYCHIATRIC: Stable affect. 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 Blurred vision is most likely related to his neuro Behet's syndrome. -Ophthalmology evaluated patient on 01/11/17. 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 Recommends immunosuppressants and steroids which patient is currently on. -01/20: Patient has injection in his right eye today, and clinical indication of possible iritis, but is not experiencing pain, only visual change. He is already on an immunosuppressant and steroid, so topical therapy may not be effective. Will monitor clinically. If condition worsens, can speak with lockstitch hemmer. Neuro-Behcet, history of frontal lobe CVA, encephalopathy, history of meningitis , chronic No new changes on imaging. Patient followed by neurology. Aphasic at baseline. Neurology following the patient Continue Imuran, prednisone EEG shows mild to moderate slowing at times of various depending on the epoch, there was no epileptic activity seen Continue PT/OT Palliative care following the patient and is still indicating the patient is making his own decisions, full code and full aggressive measures [place] as needed for pain. Sinus tachycardia: Stable. S/p Lopressor TSH, free T3, free T4 were normal Melena, bright red blood in stool: Resolved Status post transfusion, emergently transferred to main hospital, emergent endoscopy GI evaluated and managed patient with emergent colonoscopy showing small ulcer in the colon Continue Prevacid Hemoglobin stable Sepsis, multiple episodes: Resolved. Patient does have rather significant coccyx decubitus wound: Wound culture with pseudo fluorescens/putida, group D enterococcus VRE which is sensitive to Zosyn. Patient did have one urine culture of Daphney parapsilosis, was treated with fluconazole for 10 days. --Patient had episode of diarrhea, C. difficile cultures performed which was negative. --Possible aseptic meningitis Infectious disease consulted and last seen the patient on 10/18/16, at that time it was indicated to observe off antibiotics. 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 Would benefit from long-term steroids. Hypotension: -Repeat BMP 12/25 with improvement. Nurse states patient is receiving approximately 200 cc of free water flushes every 4 hours. -Lopressor discontinued on 01/02. -01/20: Hypotensive this morning, but MAP intact. Prerenal azotemia: Improved. BUN decreased to 21. Continue to monitor renal function periodically. Hypernatremia and hyperchloremia: Resolved. Continue free water flushes 200 cc every 4 hours Diabetes: stable HbA1c 6.6 on 09/25/16. Glucose was well controlled so Accu-Cheks and sliding scale insulin were discontinued. Decreased oral intake and dysphagia on initial presentation Speech therapy following intermittently. S/P barium swallow. Patient with severe dysphagia. GI consulted and PEG tube was placed. Dietary recommending Glucerna 1.5 at 70 mL/hour with Maury twice daily. Coccyx decubitus: Wound care nurse is following the patient for management. Recommends continuing to change dressings with Santyl ointment and cleansing with normal saline only. Apply luis thick Santyl ointment to slightly moistened Maxorb II dressing loosely packed in wound bed and cover with bordered gauze, to be changed daily. Specialty bed Ankle ulcer: R lateral malleolus. -Foam boots. Wound care has evaluated; paint with skin prep or betadine and leave open to air. Depression: stable Patient was evaluated by psychiatrist. Continue Prozac 40 mg daily and Seroquel 25 mg HS. DVT Prophylaxis: Lovenox, TEDs/SCDs. Discharge Planning 12/12/16: Patient's income goes to court ordered child support making it difficult for placement as patient needs additional funds to offset what's not covered by Medicaid; CM is awaiting to speak with significant other in regards to returning home with care provided by family. 12/21/16: I spoke with Gustavo Louis, case consultant, who is going to try to arrange for patient to be transported back to [place] to live with mother. 01/05/17: CM spoke with consulate general in [place] and requests a written letter which was sent 01/04/17. He is to review and discuss with [facility] regarding patient transfer to [place] to be cared for by mother. 01/20/17: Per patient's ex-, patient's passport is at his home in a bag with clothes. I relayed this to the case consultant. Problem Qualifiers (1) GI bleed: Qualified Code: K92.2 - Gastrointestinal hemorrhage, unspecified gastrointestinal hemorrhage type (2) UTI (urinary tract infection): Qualified Code: N30.00 - Acute cystitis without hematuria (3) Effusion of hip joint: Qualified Code: M25.459 - Effusion of hip joint, unspecified laterality Mari Talamantes Jan 20, 2017 11:31
[2017-01-20 20:43] VITALS: BP 111/85; PULSE 87; RESP 22; TEMP 97.3; O2SAT 97
[2017-01-20] MEDS: QUEtiapine FUMARATE 25 MG TAB PO SCH (21:17)
[2017-01-21] MEDS: azaTHIOprine 50 MG TAB PEG SCH ×2 (06:07→17:03)
[2017-01-21 08:00] VITALS: BP 104/78; PULSE 88; RESP 18; TEMP 98.9; O2SAT 98
[2017-01-21] MEDS: FLUoxetine HCL LIQUID 20 MG/5 ML CUP PEG SCH (08:56)
[2017-01-21] MEDS: SENNOSIDES SYRUP 8.8 MG/5 ML CUP PEG SCH (08:57)
[2017-01-21] MEDS: ONDANSETRON HCL 4 MG/5 ML UDC PEG PRN (08:58)
[2017-01-21] MEDS: predniSONE 20 MG TAB PEG SCH (08:59)
[2017-01-21] MEDS: LACTOBACILLUS ACIDOPHILUS TAB PEG SCH ×2 (08:59→21:07)
[2017-01-21] MEDS: LANSOPRAZOLE SOLUTAB 30 MG TAB PEG SCH ×2 (08:59→21:07)
[2017-01-21] MEDS: ENOXAPARIN SODIUM 40 MG/0.4 ML SYRINGE SQ SCH (09:01)
[2017-01-21] MEDS: JUVEN POWDER 1 PACK G-TUBE SCH ×2 (09:01→21:00)
[2017-01-21] MEDS: COLLAGENASE OINT 30 GM TUBE TOP SCH (09:02)
[2017-01-21] MEDS: LACTIC ACID (AMMONIUM LACTATE) 12% LOTION 225 GM BTL TOPICAL SCH ×2 (09:02→21:08)
--- NOTE | 2017-01-21 09:45 | HHI.PR ---
Subjective Remarks Follow-up for neuro-Behet's syndrome. No acute complaints. Objective Vitals Vital Signs Date Time Temp Pulse Resp B/P Pulse Ox O2 Delivery O2 Flow Rate FiO2 01/20/17 20:43 97.3 87 22 111/85 97 I/O 01/20/17 01/20/17 01/20/17 01/21/17 01/21/17 01/21/17 07:00 15:00 23:00 07:00 15:00 23:00 Intake Total 500 ml 2998 ml 1047 ml Output Total 875 ml 670 ml Balance -375 ml 2328 ml 1047 ml Intake Oral 0 ml Tube Feeding 2498 ml 547 ml Other 500 ml 500 ml 500 ml Output Urine Total 875 ml 670 ml # Voids 2 # Bowel Movements 0 1 2 Objective Remarks GENERAL: Thin patient in no apparent distress. EYES: Right eye no longer injected. CARDIOVASCULAR: Tachycardic rate with regular rhythm. RESPIRATORY: Coarse breath sounds related to transmitted upper respiratory sounds. GASTROINTESTINAL: Abdomen soft, non-tender, nondistended. Feeding tube present. NEUROLOGICAL: Awake and alert. Nods head to answer questions. PSYCHIATRIC: Stable affect. 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 Blurred vision is most likely related to his neuro Behet's syndrome. -Ophthalmology evaluated patient on 01/11/17. 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 Recommends immunosuppressants and steroids which patient is currently on. -01/21: R eye injection resolved. Neuro-Behcet, history of frontal lobe CVA, encephalopathy, history of meningitis , chronic No new changes on imaging. Patient followed by neurology. Aphasic at baseline. Neurology following the patient Continue Imuran, prednisone EEG shows mild to moderate slowing at times of various depending on the epoch, there was no epileptic activity seen Continue PT/OT Palliative care following the patient and is still indicating the patient is making his own decisions, full code and full aggressive measures [place] as needed for pain. Sinus tachycardia: Stable. S/p Lopressor TSH, free T3, free T4 were normal Melena, bright red blood in stool: Resolved Status post transfusion, emergently transferred to [facility], emergent endoscopy GI evaluated and managed patient with emergent colonoscopy showing small ulcer in the colon Continue Prevacid Hemoglobin stable Sepsis, multiple episodes: Resolved. Patient does have rather significant coccyx decubitus wound: Wound culture with pseudo fluorescens/putida, group D enterococcus VRE which is sensitive to Zosyn. Patient did have one urine culture of Daphney parapsilosis, was treated with fluconazole for 10 days. --Patient had episode of diarrhea, C. difficile cultures performed which was negative. --Possible aseptic meningitis Infectious disease consulted and last seen the patient on 10/18/16, at that time it was indicated to observe off antibiotics. 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 Would benefit from long-term steroids. Hypotension: stable -Lopressor discontinued on 01/02. Prerenal azotemia: Improved. BUN decreased to 21. Continue to monitor renal function periodically. Hypernatremia and hyperchloremia: Resolved. Continue free water flushes 200 cc every 4 hours Diabetes: stable HbA1c 6.6 on 09/25/16. Glucose was well controlled so Accu-Cheks and sliding scale insulin were discontinued. Decreased oral intake and dysphagia on initial presentation Speech therapy following intermittently. S/P barium swallow. Patient with severe dysphagia. GI consulted and PEG tube was placed. Dietary recommending Glucerna 1.5 at 70 mL/hour with Maury twice daily. Coccyx decubitus: Wound care nurse is following the patient for management. Recommends continuing to change dressings with Santyl ointment and cleansing with normal saline only. Apply luis thick Santyl ointment to slightly moistened Maxorb II dressing loosely packed in wound bed and cover with bordered gauze, to be changed daily. Specialty bed Ankle ulcer: R lateral malleolus. -Foam boots. Wound care has evaluated; paint with skin prep or betadine and leave open to air. Depression: stable Patient was evaluated by psychiatrist. Continue Prozac 40 mg daily and Seroquel 25 mg HS. DVT Prophylaxis: Lovenox, TEDs/SCDs. Discharge Planning 12/12/16: Patient's income goes to court ordered child support making it difficult for placement as patient needs additional funds to offset what's not covered by Medicaid; CM is awaiting to speak with significant other in regards to returning home with care provided by family. 12/21/16: I spoke with Gustavo Louis, community case manager, who is going to try to arrange for patient to be transported back to [place] to live with mother. 01/05/17: CM spoke with consulate general in [place] and requests a written letter which was sent 01/04/17. He is to review and discuss with [facility] regarding patient transfer to [place] to be cared for by mother. 01/20/17: Per patient's ex-, patient's passport is at his home in a bag with clothes. I relayed this to the community case manager. Problem Qualifiers (1) GI bleed: Qualified Code: K92.2 - Gastrointestinal hemorrhage, unspecified gastrointestinal hemorrhage type (2) UTI (urinary tract infection): Qualified Code: N30.00 - Acute cystitis without hematuria (3) Effusion of hip joint: Qualified Code: M25.459 - Effusion of hip joint, unspecified laterality Mari Talamantes Jan 21, 2017 09:45 Mari Talamantes Jan 21, 2017 09:45
[2017-01-21 20:00] VITALS: BP 99/75; PULSE 82; RESP 18; TEMP 98.1; O2SAT 97
[2017-01-21] MEDS: QUEtiapine FUMARATE 25 MG TAB PO SCH (21:07)
[2017-01-22] MEDS: azaTHIOprine 50 MG TAB PEG SCH ×2 (06:30→17:31)
[2017-01-22 08:00] VITALS: BP 99/71; PULSE 73; RESP 18; TEMP 98.7; O2SAT 95
[2017-01-22] MEDS: JUVEN POWDER 1 PACK G-TUBE SCH ×2 (09:12→21:00)
[2017-01-22] MEDS: LANSOPRAZOLE SOLUTAB 30 MG TAB PEG SCH ×2 (09:12→20:27)
[2017-01-22] MEDS: ENOXAPARIN SODIUM 40 MG/0.4 ML SYRINGE SQ SCH (09:12)
[2017-01-22] MEDS: LACTOBACILLUS ACIDOPHILUS TAB PEG SCH ×2 (09:13→20:27)
[2017-01-22] MEDS: predniSONE 20 MG TAB PEG SCH (09:13)
[2017-01-22] MEDS: FLUoxetine HCL LIQUID 20 MG/5 ML CUP PEG SCH (09:13)
[2017-01-22] MEDS: COLLAGENASE OINT 30 GM TUBE TOP SCH (09:22)
[2017-01-22] MEDS: SENNOSIDES SYRUP 8.8 MG/5 ML CUP PEG SCH (09:22)
[2017-01-22] MEDS: LACTIC ACID (AMMONIUM LACTATE) 12% LOTION 225 GM BTL TOPICAL SCH ×2 (09:23→20:30)
--- NOTE | 2017-01-22 10:01 | HHI.PR ---
Subjective Remarks Follow-up for neuro-Behet's syndrome. No acute issues. Objective Vitals Vital Signs Date Time Temp Pulse Resp B/P Pulse Ox O2 Delivery O2 Flow Rate FiO2 01/21/17 20:00 98.1 82 18 99/75 97 I/O 01/21/17 01/21/17 01/21/17 01/22/17 01/22/17 01/22/17 06:59 14:59 22:59 06:59 14:59 22:59 Intake Total 1047 ml 0 ml 1140 ml Balance 1047 ml 0 ml 1140 ml Intake Oral 0 ml Tube Feeding 547 ml 840 ml Tube Irrigant 300 ml Other 500 ml # Voids 2 4 2 # Bowel Movements 2 Objective Remarks GENERAL: Thin patient in no apparent distress. CARDIOVASCULAR: Regular rate and rhythm. RESPIRATORY: CTAB. Transmitted grunting sounds. GASTROINTESTINAL: Abdomen soft, non-tender, nondistended. Feeding tube present. NEUROLOGICAL: Awake and alert. Nods head to answer questions. PSYCHIATRIC: Stable affect. 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 Blurred vision is most likely related to his neuro Behet's syndrome. -Ophthalmology evaluated patient on 01/11/17. 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 Recommends immunosuppressants and steroids which patient is currently on. Neuro-Behcet, history of frontal lobe CVA, encephalopathy, history of meningitis , chronic No new changes on imaging. Patient followed by neurology. Aphasic at baseline. Neurology following the patient Continue Imuran, prednisone EEG shows mild to moderate slowing at times of various depending on the epoch, there was no epileptic activity seen Continue PT/OT Palliative care following the patient and is still indicating the patient is making his own decisions, full code and full aggressive measures [place] as needed for pain. Sinus tachycardia: Stable. S/p Lopressor TSH, free T3, free T4 were normal Melena, bright red blood in stool: Resolved Status post transfusion, emergently transferred to [facility], emergent endoscopy GI evaluated and managed patient with emergent colonoscopy showing small ulcer in the colon Continue Prevacid Hemoglobin stable Sepsis, multiple episodes: Resolved. Patient does have rather significant coccyx decubitus wound: Wound culture with pseudo fluorescens/putida, group D enterococcus VRE which is sensitive to Zosyn. Patient did have one urine culture of Daphney parapsilosis, was treated with fluconazole for 10 days. --Patient had episode of diarrhea, C. difficile cultures performed which was negative. --Possible aseptic meningitis Infectious disease consulted and last seen the patient on 10/18/16, at that time it was indicated to observe off antibiotics. 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 Would benefit from long-term steroids. Hypotension: stable -Lopressor discontinued on 01/02. Prerenal azotemia: Improved. BUN decreased to 21. Continue to monitor renal function periodically. Hypernatremia and hyperchloremia: Resolved. Continue free water flushes 200 cc every 4 hours Diabetes: stable HbA1c 6.6 on 09/25/16. Glucose was well controlled so Accu-Cheks and sliding scale insulin were discontinued. Decreased oral intake and dysphagia on initial presentation Speech therapy following intermittently. S/P barium swallow. Patient with severe dysphagia. GI consulted and PEG tube was placed. Dietary recommending Glucerna 1.5 at 70 mL/hour with Maury twice daily. Coccyx decubitus: Wound care nurse is following the patient for management. Recommends continuing to change dressings with Santyl ointment and cleansing with normal saline only. Apply luis thick Santyl ointment to slightly moistened Maxorb II dressing loosely packed in wound bed and cover with bordered gauze, to be changed daily. Specialty bed Ankle ulcer: R lateral malleolus. -Foam boots. Wound care has evaluated; paint with skin prep or betadine and leave open to air. Depression: stable Patient was evaluated by psychiatrist. Continue Prozac 40 mg daily and Seroquel 25 mg HS. DVT Prophylaxis: Lovenox, TEDs/SCDs. Discharge Planning 12/12/16: Patient's income goes to court ordered child support making it difficult for placement as patient needs additional funds to offset what's not covered by Medicaid; CM is awaiting to speak with significant other in regards to returning home with care provided by family. 12/21/16: I spoke with Gustavo Louis, shoe caser, who is going to try to arrange for patient to be transported back to [place] to live with mother. 01/05/17: CM spoke with consulate general in [place] and requests a written letter which was sent 01/04/17. He is to review and discuss with [facility] regarding patient transfer to [place] to be cared for by mother. 01/20/17: Per patient's ex-, patient's passport is at his home in a bag with clothes. I relayed this to the shoe caser. Problem Qualifiers (1) GI bleed: Qualified Code: K92.2 - Gastrointestinal hemorrhage, unspecified gastrointestinal hemorrhage type (2) UTI (urinary tract infection): Qualified Code: N30.00 - Acute cystitis without hematuria (3) Effusion of hip joint: Qualified Code: M25.459 - Effusion of hip joint, unspecified laterality Mari Talamantes Jan 22, 2017 10:01
[2017-01-22 20:00] VITALS: BP 112/85; PULSE 80; RESP 18; TEMP 96.6; O2SAT 96
[2017-01-22] MEDS: QUEtiapine FUMARATE 25 MG TAB PO SCH (20:27)
[2017-01-23] MEDS: azaTHIOprine 50 MG TAB PEG SCH ×2 (06:17→16:46)
[2017-01-23 08:16] VITALS: BP 102/78; PULSE 97; RESP 19; TEMP 91.8; O2SAT 90
[2017-01-23] MEDS: ENOXAPARIN SODIUM 40 MG/0.4 ML SYRINGE SQ SCH (10:12)
[2017-01-23] MEDS: FLUoxetine HCL LIQUID 20 MG/5 ML CUP PEG SCH (10:12)
[2017-01-23] MEDS: predniSONE 20 MG TAB PEG SCH (10:12)
[2017-01-23] MEDS: JUVEN POWDER 1 PACK G-TUBE SCH ×2 (10:15→20:58)
[2017-01-23] MEDS: LANSOPRAZOLE SOLUTAB 30 MG TAB PEG SCH ×2 (10:15→20:58)
[2017-01-23] MEDS: LACTOBACILLUS ACIDOPHILUS TAB PEG SCH ×2 (10:15→20:57)
[2017-01-23] MEDS: COLLAGENASE OINT 30 GM TUBE TOP SCH (10:16)
[2017-01-23] MEDS: LACTIC ACID (AMMONIUM LACTATE) 12% LOTION 225 GM BTL TOPICAL SCH ×2 (10:16→20:58)
--- NOTE | 2017-01-23 10:44 | HHI.PR ---
Subjective Remarks Follow up for neuro-Behcet's syndrome. Pain complains of double vision. Denies any eye pain. Denies any shortness of breath. Begins to cry. Objective Vitals Vital Signs Date Time Temp Pulse Resp B/P Pulse Ox O2 Delivery O2 Flow Rate FiO2 01/23/17 08:16 91.8 97 19 102/78 90 01/22/17 20:00 96.6 80 18 112/85 96 I/O 01/22/17 01/22/17 01/22/17 01/23/17 01/23/17 01/23/17 07:00 15:00 23:00 07:00 15:00 23:00 Intake Total 0 ml 1140 ml 1590 ml Output Total 1400 ml Balance 0 ml 1140 ml 1590 ml -1400 ml Intake Oral 0 ml Tube Feeding 840 ml 840 ml Tube Irrigant 300 ml Other 750 ml Output Urine Total 1400 ml # Voids 2 # Bowel Movements 0 Objective Remarks GENERAL: Thin patient in no apparent distress. CARDIOVASCULAR: Tachycardic rate and regular rhythm. RESPIRATORY: CTAB. GASTROINTESTINAL: Abdomen soft, non-tender, nondistended. Feeding tube present. NEUROLOGICAL: Awake and alert. Nods head to answer questions. PSYCHIATRIC: Depressed affect. Procedures 07/19/16 EGD with PEG tube placement 09/27/16 colonoscopy Urinary Catheter: No Vascular Central Line Catheter: No A/P Problem List: (1) Sepsis ICD Code: A41.9 Status: Resolved (2) Encephalopathy ICD Code: G93.40 Status: Resolved (3) 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 (4) GI bleed ICD Code: K92.2 Status: Resolved (5) HCAP (healthcare-associated pneumonia) ICD Code: J18.9 Status: Resolved (6) UTI (urinary tract infection) ICD Code: N39.0 Status: Resolved (7) Leucocytosis ICD Code: D72.829 Status: Resolved (8) Fever ICD Code: R50.9 Status: Resolved (9) Effusion of hip joint ICD Code: M25.459 Status: Acute (10) Xeroderma ICD Code: Q80.9 Status: Acute (11) Blurred vision, bilateral ICD Code: H53.8 Status: Acute Assessment and Plan Blurred vision/Diplopia: Related to his neuro Behet's syndrome. -Ophthalmology evaluated patient on 01/11/17. 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 Recommends immunosuppressants and steroids which patient is currently on. Neuro-Behcet, history of frontal lobe CVA, encephalopathy, history of meningitis , chronic No new changes on imaging. Patient followed by neurology. Aphasic at baseline. Neurology following the patient Continue Imuran, prednisone EEG shows mild to moderate slowing at times of various depending on the epoch, there was no epileptic activity seen Continue PT/OT Palliative care following the patient and is still indicating the patient is making his own decisions, full code and full aggressive measures Jasper as needed for pain. Sinus tachycardia: Stable. S/p Lopressor TSH, free T3, free T4 were normal Melena, bright red blood in stool: Resolved Status post transfusion, emergently transferred to [facility], emergent endoscopy GI evaluated and managed patient with emergent colonoscopy showing small ulcer in the colon Continue Prevacid Hemoglobin stable Sepsis, multiple episodes: Resolved. Patient does have rather significant coccyx decubitus wound: Wound culture with pseudo fluorescens/putida, group D enterococcus VRE which is sensitive to Zosyn. Patient did have one urine culture of Daphney parapsilosis, was treated with fluconazole for 10 days. --Patient had episode of diarrhea, C. difficile cultures performed which was negative. --Possible aseptic meningitis Infectious disease consulted and last seen the patient on 10/18/16, at that time it was indicated to observe off antibiotics. 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 Would benefit from long-term steroids. Hypotension: stable -Lopressor discontinued on 01/02. Prerenal azotemia: Improved. BUN decreased to 21. Continue to monitor renal function periodically. Hypernatremia and hyperchloremia: Resolved. Continue free water flushes 200 cc every 4 hours Diabetes: stable HbA1c 6.6 on 09/25/16. Glucose was well controlled so Accu-Cheks and sliding scale insulin were discontinued. Decreased oral intake and dysphagia on initial presentation Speech therapy following intermittently. S/P barium swallow. Patient with severe dysphagia. GI consulted and PEG tube was placed. Dietary recommending Glucerna 1.5 at 70 mL/hour with Maury twice daily. Coccyx decubitus: Wound care nurse is following the patient for management. Recommends continuing to change dressings with Santyl ointment and cleansing with normal saline only. Apply luis thick Santyl ointment to slightly moistened Maxorb II dressing loosely packed in wound bed and cover with bordered gauze, to be changed daily. Specialty bed Ankle ulcer: R lateral malleolus. -Foam boots. Wound care has evaluated; paint with skin prep or betadine and leave open to air. Depression: Patient was evaluated by psychiatrist. Continue Prozac 40 mg daily and Seroquel 25 mg HS. DVT Prophylaxis: Lovenox, TEDs/SCDs. Discharge Planning 12/12/16: Patient's income goes to court ordered child support making it difficult for placement as patient needs additional funds to offset what's not covered by Medicaid; CM is awaiting to speak with significant other in regards to returning home with care provided by family. 12/21/16: I spoke with Gustavo Louis, test case developer, who is going to try to arrange for patient to be transported back to [place] to live with mother. 01/05/17: CM spoke with consulate general in [place] and requests a written letter which was sent 01/04/17. He is to review and discuss with [facility] regarding patient transfer to [place] to be cared for by mother. 01/20/17: Per patient's ex-, patient's passport is at his home in a bag with clothes. I relayed this to the test case developer. Problem Qualifiers (1) GI bleed: Qualified Code: K92.2 - Gastrointestinal hemorrhage, unspecified gastrointestinal hemorrhage type (2) UTI (urinary tract infection): Qualified Code: N30.00 - Acute cystitis without hematuria (3) Effusion of hip joint: Qualified Code: M25.459 - Effusion of hip joint, unspecified laterality Mari Talamantes Jan 23, 2017 10:44
[2017-01-23] MEDS: SENNOSIDES SYRUP 8.8 MG/5 ML CUP PEG SCH (10:59)
[2017-01-23 20:00] VITALS: BP 99/81; PULSE 84; RESP 16; TEMP 97.8; O2SAT 95
[2017-01-23] MEDS: QUEtiapine FUMARATE 25 MG TAB PO SCH (20:58)
[2017-01-24] MEDS: azaTHIOprine 50 MG TAB PEG SCH ×2 (05:42→15:27)
[2017-01-24 08:00] VITALS: BP 102/72; PULSE 94; RESP 24; TEMP 97.4; O2SAT 97
[2017-01-24] MEDS: JUVEN POWDER 1 PACK G-TUBE SCH ×2 (09:27→21:00)
[2017-01-24] MEDS: LACTIC ACID (AMMONIUM LACTATE) 12% LOTION 225 GM BTL TOPICAL SCH ×2 (09:28→21:10)
[2017-01-24] MEDS: LACTOBACILLUS ACIDOPHILUS TAB PEG SCH ×2 (09:28→21:09)
[2017-01-24] MEDS: COLLAGENASE OINT 30 GM TUBE TOP SCH (09:28)
[2017-01-24] MEDS: ENOXAPARIN SODIUM 40 MG/0.4 ML SYRINGE SQ SCH (09:29)
[2017-01-24] MEDS: SENNOSIDES SYRUP 8.8 MG/5 ML CUP PEG SCH (09:29)
[2017-01-24] MEDS: FLUoxetine HCL LIQUID 20 MG/5 ML CUP PEG SCH (09:29)
[2017-01-24] MEDS: LANSOPRAZOLE SOLUTAB 30 MG TAB PEG SCH ×2 (09:30→21:09)
[2017-01-24] MEDS: predniSONE 20 MG TAB PEG SCH (09:30)
--- NOTE | 2017-01-24 11:17 | HHI.PR ---
Subjective Remarks Patient sees examined today for follow-up on neuro-Behcet's syndrome. Patient denies any new complaints. States it only problems that he has is his chronic condition Objective Vitals Vital Signs Date Time Temp Pulse Resp B/P Pulse Ox O2 Delivery O2 Flow Rate FiO2 01/24/17 08:00 97.4 94 24 102/72 97 01/23/17 20:00 97.8 84 16 99/81 95 01/23/17 20:00 97.8 84 16 99/81 95 I/O 01/23/17 01/23/17 01/23/17 01/24/17 01/24/17 01/24/17 07:00 15:00 23:00 07:00 15:00 23:00 Intake Total 860 ml 960 ml Output Total 1400 ml 200 ml Balance -1400 ml 660 ml 960 ml Tube Feeding 560 ml 560 ml Tube Irrigant 300 ml 400 ml Output Urine Total 1400 ml 200 ml # Bowel Movements 0 1 Objective Remarks GENERAL: Well-developed, cachectic and contracted. HEENT: Head is normocephalic without any lesions or masses noted. Facial features are symmetric. Eyes: Extraocular muscles are intact. Conjunctivae were clear. NECK: Trachea midline no deviation. CARDIAC: Regular rhythm, tachycardia noted. S1/S2 are heard. No murmurs gallops or rubs. LUNGS: Clear to auscultation bilaterally. No wheeze, rhonchi or rales. No use of accessory muscles on inspiration or expiration. ABDOMEN: Soft, nontender. Nondistended. Bowel sounds heard in all 4 quadrants. No organomegaly or masses. Negative rebound, negative guarding. PEG tube noted without any excoriation. EXTREMITIES: No edema, pulses are equal bilaterally. No cyanosis or clubbing. Ulceration noted over his left lower extremity lateral malleolus Procedures 07/19/16 EGD with PEG tube placement 09/27/16 colonoscopy Urinary Catheter: No Vascular Central Line Catheter: No A/P Assessment and Plan Neuro-Behcet, history of frontal lobe CVA, encephalopathy, history of meningitis , chronic No new changes on imaging. Patient was followed by neurology. Aphasic at baseline. Continue Imuran, prednisone EEG shows mild to moderate slowing at times of various depending on the epoch, there was no epileptic activity seen Continue PT/OT Palliative care evaluated the patient and is still indicating the patient is making his own decisions, full code and full aggressive measures Blurred vision/double vision, secondary to neuro-Behcet's syndrome Ophthalmology consulted and indicates that his visual problems are secondary to neuro-Behcet's syndrome Recommending immunosuppressive and steroids, which the patient is already on Sinus tachycardia. Stable Discontinued Lopressor due to low blood pressure TSH, free T3, free T4 colon were normal Melena, bright red blood in stool, resolved Status post transfusion, emergency transferred to [facility] hospital, emergent endoscopy GI evaluated and managed patient with emergent colonoscopy showing small ulcer in the colon Continue Prevacid Sepsis, multiple episodes, resolved at this time Patient does have rather significant coccyx decubitus wound: Wound culture with pseudo fluorescens/putida, group D enterococcus VRE which is sensitive to Zosyn. Patient did have one urine culture of Daphney parapsilosis, was treated with fluconazole for 10 days. --Patient had episode of diarrhea, C. difficile cultures performed which was negative. --Possible aseptic meningitis Infectious disease consulted and last seen the patient on 10/18/16, at that time it was indicated to observe off antibiotics. 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 Would benefit from long-term steroids Prerenal azotemia, resolved Continue monitor renal function periodically Hypernatremia, resolved free water flushes 250 cc every 4 hours Monitor sodium level, BMP ordered for 12/20/16 Decreased oral intake and dysphagia on initial presentation Speech therapy following intermittently. S/P barium swallow. Patient with severe dysphagia. GI was consulted and PEG tube was placed. Dietary recommending Glucerna 1.5 at 70 mL's an hour with Maury twice daily, Request dietary reevaluation for bolus feeding Coccyx decubitus. Wound care nurse is following the patient for management Patient with specialty bed Mood disorder, depression Patient was evaluated by psychiatrist. Prozac 40 mg daily Seroquel 25 mg at bedtime Diabetes Glucose well controlled, DVT Prophylaxis: Lovenox, TEDs/SCDs. Patient examined, records reviewed. No change in treatment plan Discharge Planning Case management for discharge planning, recent records indicate that planning on transferring back to [place], Ede Richardson Jan 24, 2017 11:17
[2017-01-24 20:00] VITALS: BP 112/85; PULSE 84; RESP 21; TEMP 97.5; O2SAT 95
[2017-01-24] MEDS: QUEtiapine FUMARATE 25 MG TAB PO SCH (21:10)
[2017-01-25] MEDS: azaTHIOprine 50 MG TAB PEG SCH ×2 (06:04→07:59)
[2017-01-25] MEDS: LACTIC ACID (AMMONIUM LACTATE) 12% LOTION 225 GM BTL TOPICAL SCH ×2 (07:57→21:51)
[2017-01-25] MEDS: COLLAGENASE OINT 30 GM TUBE TOP SCH (07:57)
[2017-01-25] MEDS: LACTOBACILLUS ACIDOPHILUS TAB PEG SCH ×2 (07:58→21:50)
[2017-01-25] MEDS: FLUoxetine HCL LIQUID 20 MG/5 ML CUP PEG SCH (07:58)
[2017-01-25] MEDS: ENOXAPARIN SODIUM 40 MG/0.4 ML SYRINGE SQ SCH (07:58)
[2017-01-25] MEDS: SENNOSIDES SYRUP 8.8 MG/5 ML CUP PEG SCH (07:58)
[2017-01-25] MEDS: LANSOPRAZOLE SOLUTAB 30 MG TAB PEG SCH ×2 (07:59→21:50)
[2017-01-25] MEDS: predniSONE 20 MG TAB PEG SCH (07:59)
[2017-01-25] MEDS: JUVEN POWDER 1 PACK G-TUBE SCH ×2 (07:59→21:00)
--- NOTE | 2017-01-25 11:06 | HHI.PR ---
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 Patient denies any new complaints. No change in clinical status. Objective Vitals Vital Signs Date Time Temp Pulse Resp B/P Pulse Ox O2 Delivery O2 Flow Rate FiO2 01/24/17 20:00 97.5 84 21 112/85 95 I/O 01/24/17 01/24/17 01/24/17 01/25/17 01/25/17 01/25/17 07:00 15:00 23:00 07:00 15:00 23:00 Intake Total 960 ml 1590 ml 0 ml 0 ml Output Total 1000 ml 300 ml Balance 960 ml 1590 ml -1000 ml -300 ml Intake Oral 0 ml 0 ml Tube Feeding 560 ml 840 ml Tube Irrigant 400 ml Other 750 ml Output Urine Total 1000 ml 300 ml # Bowel Movements 1 2 Objective Remarks GENERAL: Well-developed, cachectic and contracted. HEENT: Head is normocephalic without any lesions or masses noted. Facial features are symmetric. Eyes: Extraocular muscles are intact. Conjunctivae were clear. NECK: Trachea midline no deviation. CARDIAC: Regular rhythm, tachycardia noted. S1/S2 are heard. No murmurs gallops or rubs. LUNGS: Clear to auscultation bilaterally. No wheeze, rhonchi or rales. No use of accessory muscles on inspiration or expiration. ABDOMEN: Soft, nontender. Nondistended. Bowel sounds heard in all 4 quadrants. No organomegaly or masses. Negative rebound, negative guarding. PEG tube noted without any excoriation. EXTREMITIES: No edema, pulses are equal bilaterally. No cyanosis or clubbing. Ulceration noted over his left lower extremity lateral malleolus Procedures 07/19/16 EGD with PEG tube placement 09/27/16 colonoscopy Urinary Catheter: No Vascular Central Line Catheter: No A/P Assessment and Plan Neuro-Behcet, history of frontal lobe CVA, encephalopathy, history of meningitis , chronic No new changes on imaging. Patient was followed by neurology. Aphasic at baseline. Continue Imuran, prednisone EEG shows mild to moderate slowing at times of various depending on the epoch, there was no epileptic activity seen Continue PT/OT Palliative care evaluated the patient and is still indicating the patient is making his own decisions, full code and full aggressive measures Blurred vision/double vision, secondary to neuro-Behcet's syndrome Ophthalmology consulted and indicates that his visual problems are secondary to neuro-Behcet's syndrome Recommending immunosuppressive and steroids, which the patient is already on Sinus tachycardia. Stable Discontinued Lopressor due to low blood pressure TSH, free T3, free T4 colon were normal Melena, bright red blood in stool, resolved Status post transfusion, emergency transferred to [facility] hospital, emergent endoscopy GI evaluated and managed patient with emergent colonoscopy showing small ulcer in the colon Continue Prevacid Sepsis, multiple episodes, resolved at this time Patient does have rather significant coccyx decubitus wound: Wound culture with pseudo fluorescens/putida, group D enterococcus VRE which is sensitive to Zosyn. Patient did have one urine culture of Daphney parapsilosis, was treated with fluconazole for 10 days. --Patient had episode of diarrhea, C. difficile cultures performed which was negative. --Possible aseptic meningitis Infectious disease consulted and last seen the patient on 10/18/16, at that time it was indicated to observe off antibiotics. 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 Would benefit from long-term steroids Prerenal azotemia, resolved Continue monitor renal function periodically Hypernatremia, resolved free water flushes 250 cc every 4 hours Monitor sodium level, BMP ordered for 12/20/16 Decreased oral intake and dysphagia on initial presentation Speech therapy following intermittently. S/P barium swallow. Patient with severe dysphagia. GI was consulted and PEG tube was placed. Dietary recommending Glucerna 1.5 at 70 mL's an hour with Maury twice daily, Request dietary reevaluation for bolus feeding Coccyx decubitus. Wound care nurse is following the patient for management Patient with specialty bed Mood disorder, depression Patient was evaluated by psychiatrist. Prozac 40 mg daily Seroquel 25 mg at bedtime Diabetes Glucose well controlled, DVT Prophylaxis: Lovenox, TEDs/SCDs. Patient examined, records reviewed. No change in treatment plan Discharge Planning Case management for discharge planning, recent records indicate that planning on transferring back to [place], Ede Richardson Jan 25, 2017 11:06
[2017-01-25 11:30] VITALS: O2SAT 95
[2017-01-25 15:00] VITALS: BP 114/87; PULSE 103; RESP 18; TEMP 96; O2SAT 98
[2017-01-25] MEDS: HYOSCYAMINE SOLN 0.125 MG/ML 15 ML BTL PEG PRN (17:22)
--- NOTE | 2017-01-25 18:34 | PD.WCN.NOT ---
Wound Consult Description: R Lateral malleolus unstageable pressure injury Communicated with: SHIRLENE Brewer 5th floor [facility] Recommendation: Recommend to continue dressing changes with Santyl and Maxorb II to sacral/ coccyx area, cleansing wound with normal saline only. Also may change dressing to Lateral R malleolus with Maxorb II and Santyl secured with dry cover dressing changed daily for now. Additional Information: Patient seen for follow up of unstageable pressure injury to R lateral malleolus. Removed adhesive foam and maxorb II dressing in place to reveal wound. Wound presents with ~90% clean red non granulation tissue and ~10% yellow slough. Presence of slough indicates unstageable pressure injury. Wound measures 1.6 cm x 1.4cm x ~0.4cm with slough. Wound has minimal sero-sanguinous drainage that is without odor. Cleansed wound with normal saline and applied Santyl ointment luis thick coverage and covered with Maxorb II dressing. Covered wound with Optifoam gentle border. Unable to assess wound to sacral/coccyx area at this time. Patient is up in chair and dressing was changed by SHIRLENE Brown. Will reassess at a later date. Arleen Gibbs 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 Jan 25, 2017 18:34 Arleen Gibbs Jan 25, 2017 18:34
[2017-01-25] MEDS: QUEtiapine FUMARATE 25 MG TAB PO SCH (21:50)
[2017-01-25 23:32] VITALS: BP 111/85; PULSE 81; RESP 18; TEMP 96.2; O2SAT 97
[2017-01-26] MEDS: azaTHIOprine 50 MG TAB PEG SCH ×2 (05:45→18:00)
[2017-01-26 08:00] VITALS: BP 108/64; PULSE 88; RESP 18; TEMP 98.8; O2SAT 97
[2017-01-26] MEDS: JUVEN POWDER 1 PACK G-TUBE SCH ×2 (09:00→20:29)
[2017-01-26] MEDS: PADIMATE (CHAPSTICK) 4.5 GM TUBE TOPICAL PRN (09:38)
[2017-01-26] MEDS: ENOXAPARIN SODIUM 40 MG/0.4 ML SYRINGE SQ SCH (09:38)
[2017-01-26] MEDS: SENNOSIDES SYRUP 8.8 MG/5 ML CUP PEG SCH (09:39)
[2017-01-26] MEDS: FLUoxetine HCL LIQUID 20 MG/5 ML CUP PEG SCH (09:39)
[2017-01-26] MEDS: COLLAGENASE OINT 30 GM TUBE TOP SCH (09:40)
[2017-01-26] MEDS: LACTOBACILLUS ACIDOPHILUS TAB PEG SCH ×2 (09:40→20:28)
[2017-01-26] MEDS: HYOSCYAMINE SOLN 0.125 MG/ML 15 ML BTL PEG PRN (09:40)
[2017-01-26] MEDS: predniSONE 20 MG TAB PEG SCH (09:40)
[2017-01-26] MEDS: LANSOPRAZOLE SOLUTAB 30 MG TAB PEG SCH ×2 (09:40→20:28)
[2017-01-26] MEDS: LACTIC ACID (AMMONIUM LACTATE) 12% LOTION 225 GM BTL TOPICAL SCH ×2 (09:41→20:28)
--- NOTE | 2017-01-26 13:06 | HHI.PR ---
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 Patient denies any new complaints. No change in clinical status. Objective Vitals Vital Signs Date Time Temp Pulse Resp B/P Pulse Ox O2 Delivery O2 Flow Rate FiO2 01/25/17 23:32 96.2 81 18 111/85 97 01/25/17 15:00 96.0 103 18 114/87 98 I/O 01/25/17 01/25/17 01/25/17 01/26/17 01/26/17 01/26/17 07:00 15:00 23:00 07:00 15:00 23:00 Intake Total 0 ml 250 ml Output Total 300 ml Balance -300 ml 250 ml Intake Oral 0 ml Other 250 ml Output Urine Total 300 ml # Voids 3 # Bowel Movements 2 Objective Remarks GENERAL: Well-developed, cachectic and contracted. HEENT: Head is normocephalic without any lesions or masses noted. Facial features are symmetric. Eyes: Extraocular muscles are intact. Conjunctivae were clear. NECK: Trachea midline no deviation. CARDIAC: Regular rhythm, tachycardia noted. S1/S2 are heard. No murmurs gallops or rubs. LUNGS: Clear to auscultation bilaterally. No wheeze, rhonchi or rales. No use of accessory muscles on inspiration or expiration. ABDOMEN: Soft, nontender. Nondistended. Bowel sounds heard in all 4 quadrants. No organomegaly or masses. Negative rebound, negative guarding. PEG tube noted without any excoriation. EXTREMITIES: No edema, pulses are equal bilaterally. No cyanosis or clubbing. Ulceration noted over his left lower extremity lateral malleolus Procedures 07/19/16 EGD with PEG tube placement 09/27/16 colonoscopy Urinary Catheter: No Vascular Central Line Catheter: No A/P Assessment and Plan Neuro-Behcet, history of frontal lobe CVA, encephalopathy, history of meningitis , chronic No new changes on imaging. Patient was followed by neurology. Aphasic at baseline. Continue Imuran, prednisone EEG shows mild to moderate slowing at times of various depending on the epoch, there was no epileptic activity seen Continue PT/OT Palliative care evaluated the patient and is still indicating the patient is making his own decisions, full code and full aggressive measures Blurred vision/double vision, secondary to neuro-Behcet's syndrome Ophthalmology consulted and indicates that his visual problems are secondary to neuro-Behcet's syndrome Recommending immunosuppressive and steroids, which the patient is already on Sinus tachycardia. Stable Discontinued Lopressor due to low blood pressure TSH, free T3, free T4 colon were normal Melena, bright red blood in stool, resolved Status post transfusion, emergency transferred to Main hospital, emergent endoscopy GI evaluated and managed patient with emergent colonoscopy showing small ulcer in the colon Continue Prevacid Sepsis, multiple episodes, resolved at this time Patient does have rather significant coccyx decubitus wound: Wound culture with pseudo fluorescens/putida, group D enterococcus VRE which is sensitive to Zosyn. Patient did have one urine culture of Daphney parapsilosis, was treated with fluconazole for 10 days. --Patient had episode of diarrhea, C. difficile cultures performed which was negative. --Possible aseptic meningitis Infectious disease consulted and last seen the patient on 10/18/16, at that time it was indicated to observe off antibiotics. 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 Would benefit from long-term steroids Prerenal azotemia, resolved Continue monitor renal function periodically Hypernatremia, resolved free water flushes 250 cc every 4 hours Monitor sodium level, BMP ordered for 12/20/16 Decreased oral intake and dysphagia on initial presentation Speech therapy following intermittently. S/P barium swallow. Patient with severe dysphagia. GI was consulted and PEG tube was placed. Dietary recommending Glucerna 1.5 at 70 mL's an hour with Maury twice daily, Request dietary reevaluation for bolus feeding Coccyx decubitus. Wound care nurse is following the patient for management Patient with specialty bed Mood disorder, depression Patient was evaluated by psychiatrist. Prozac 40 mg daily Seroquel 25 mg at bedtime Diabetes Glucose well controlled, DVT Prophylaxis: Lovenox, TEDs/SCDs. Patient examined, records reviewed. No change in treatment plan Discharge Planning Case management for discharge planning, recent records indicate that planning on transferring back to [place], Ede Richardson Jan 26, 2017 13:06
[2017-01-26 20:00] VITALS: BP 109/84; PULSE 70; RESP 18; TEMP 96.5; O2SAT 96
[2017-01-26] MEDS: QUEtiapine FUMARATE 25 MG TAB PO SCH (20:28)
[2017-01-27] MEDS: azaTHIOprine 50 MG TAB PEG SCH ×2 (06:00→17:11)
[2017-01-27 08:00] VITALS: BP 159/79; PULSE 98; RESP 20; TEMP 98.2; O2SAT 95
[2017-01-27] MEDS: JUVEN POWDER 1 PACK G-TUBE SCH ×2 (09:00→21:00)
[2017-01-27] MEDS: COLLAGENASE OINT 30 GM TUBE TOP SCH (09:00)
[2017-01-27] MEDS: LACTIC ACID (AMMONIUM LACTATE) 12% LOTION 225 GM BTL TOPICAL SCH ×2 (09:00→21:10)
[2017-01-27] MEDS: ENOXAPARIN SODIUM 40 MG/0.4 ML SYRINGE SQ SCH (10:03)
[2017-01-27] MEDS: LACTOBACILLUS ACIDOPHILUS TAB PEG SCH ×2 (10:03→21:09)
[2017-01-27] MEDS: LANSOPRAZOLE SOLUTAB 30 MG TAB PEG SCH ×2 (10:03→21:09)
[2017-01-27] MEDS: FLUoxetine HCL LIQUID 20 MG/5 ML CUP PEG SCH (10:03)
[2017-01-27] MEDS: SENNOSIDES SYRUP 8.8 MG/5 ML CUP PEG SCH (10:03)
[2017-01-27] MEDS: predniSONE 20 MG TAB PEG SCH (10:04)
--- NOTE | 2017-01-27 10:39 | HHI.PR ---
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 Patient indicates that he is doing well. Denies any new complaints. No change in clinical status. Objective Vitals Vital Signs Date Time Temp Pulse Resp B/P Pulse Ox O2 Delivery O2 Flow Rate FiO2 01/27/17 08:00 98.2 98 20 159/79 95 01/26/17 20:00 96.5 70 18 109/84 96 I/O 01/26/17 01/26/17 01/26/17 01/27/17 01/27/17 01/27/17 06:59 14:59 22:59 06:59 14:59 22:59 Intake Total 500 ml 1090 ml Output Total 1 ml 550 ml Balance 500 ml 1089 ml -550 ml Tube Feeding 840 ml Other 500 ml 250 ml Output Urine Total 550 ml Stool Total 1 ml # Voids 6 # Bowel Movements 0 0 Objective Remarks GENERAL: Well-developed, cachectic and contracted. HEENT: Head is normocephalic without any lesions or masses noted. Facial features are symmetric. Eyes: Extraocular muscles are intact. Conjunctivae were clear. NECK: Trachea midline no deviation. CARDIAC: Regular rhythm, tachycardia noted. S1/S2 are heard. No murmurs gallops or rubs. LUNGS: Clear to auscultation bilaterally. No wheeze, rhonchi or rales. No use of accessory muscles on inspiration or expiration. ABDOMEN: Soft, nontender. Nondistended. Bowel sounds heard in all 4 quadrants. No organomegaly or masses. Negative rebound, negative guarding. PEG tube noted without any excoriation. EXTREMITIES: No edema, pulses are equal bilaterally. No cyanosis or clubbing. Ulceration noted over his left lower extremity lateral malleolus Procedures 07/19/16 EGD with PEG tube placement 09/27/16 colonoscopy Urinary Catheter: No Vascular Central Line Catheter: No A/P Assessment and Plan Neuro-Behcet, history of frontal lobe CVA, encephalopathy, history of meningitis , chronic No new changes on imaging. Patient was followed by neurology. Aphasic at baseline. Continue Imuran, prednisone EEG shows mild to moderate slowing at times of various depending on the epoch, there was no epileptic activity seen Continue PT/OT Palliative care evaluated the patient and is still indicating the patient is making his own decisions, full code and full aggressive measures Blurred vision/double vision, secondary to neuro-Behcet's syndrome Ophthalmology consulted and indicates that his visual problems are secondary to neuro-Behcet's syndrome Recommending immunosuppressive and steroids, which the patient is already on Sinus tachycardia. Stable Discontinued Lopressor due to low blood pressure TSH, free T3, free T4 colon were normal Melena, bright red blood in stool, resolved Status post transfusion, emergency transferred to Main hospital, emergent endoscopy GI evaluated and managed patient with emergent colonoscopy showing small ulcer in the colon Continue Prevacid Sepsis, multiple episodes, resolved at this time Patient does have rather significant coccyx decubitus wound: Wound culture with pseudo fluorescens/putida, group D enterococcus VRE which is sensitive to Zosyn. Patient did have one urine culture of Daphney parapsilosis, was treated with fluconazole for 10 days. --Patient had episode of diarrhea, C. difficile cultures performed which was negative. --Possible aseptic meningitis Infectious disease consulted and last seen the patient on 10/18/16, at that time it was indicated to observe off antibiotics. 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 Would benefit from long-term steroids Prerenal azotemia, resolved Continue monitor renal function periodically Hypernatremia, resolved free water flushes 250 cc every 4 hours Monitor sodium level, BMP ordered for 12/20/16 Decreased oral intake and dysphagia on initial presentation Speech therapy following intermittently. S/P barium swallow. Patient with severe dysphagia. GI was consulted and PEG tube was placed. Dietary recommending Glucerna 1.5 at 70 mL's an hour with Maury twice daily, Request dietary reevaluation for bolus feeding Coccyx decubitus. Wound care nurse is following the patient for management Patient with specialty bed Mood disorder, depression Patient was evaluated by psychiatrist. Prozac 40 mg daily Seroquel 25 mg at bedtime Diabetes Glucose well controlled, DVT Prophylaxis: Lovenox, TEDs/SCDs. Patient examined, records reviewed. No change in treatment plan Discharge Planning Case management for discharge planning, recent records indicate that planning on transferring back to [place], Ede Richardson Jan 27, 2017 10:39
--- NOTE | 2017-01-27 17:00 | PD.WCN.NOT ---
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 Communicated with: APRYL Blackburn YOLANDA 5th floor and Josafat BRANTLEY Recommendation: Please cleanse wounds to sacral/ coccyx and Lateral R malleolus with normal saline or wound cleanser and apply Maxorb AG loosely packed into wound bed and cover with dry cover cover dressing. Change dressing every other day and PRN if saturated or dislodged. Please apply skin prep before applying adhesive dressing in place. Additional Information: Patient seen on 5th floor [facility] for follow up of sacrum/ coccyx wound. Patient positioned to R side for wound assessment with the assistance of [employer] and proposal manager writer. Removed bordered gauze dressing in place to reveal Sacral/ Coccyx wound. Wound presents with 100% beefy red granulation tissue. Wound has minimal sero-sanguinous drainage without odor. Wound margins are well defined. Scar tissue is noted to periwound that is otherwise unremarkable.Cleansed wound with normal saline.Wound measurements are as follows: 1.8cm x 1.4 cm x 0.4cm, undermining noted between 12 and 3 o'clock, deepest at 3 o'clock 0.7cm. Applied luis thick coverage of Santyl ointment and covered with loosely packed Maxorb II and covered with bordered gauze. Applied skin prep before applying adhesive dressing. Arleen Gibbs [facility] Jan 27, 2017 17:00
[2017-01-27 20:00] VITALS: BP 108/85; PULSE 86; RESP 18; TEMP 95.8; O2SAT 97
[2017-01-27] MEDS: QUEtiapine FUMARATE 25 MG TAB PO SCH (21:09)
[2017-01-28] MEDS: azaTHIOprine 50 MG TAB PEG SCH ×2 (06:08→16:50)
[2017-01-28] MEDS: HYOSCYAMINE SOLN 0.125 MG/ML 15 ML BTL PEG PRN (08:58)
[2017-01-28] MEDS: LACTIC ACID (AMMONIUM LACTATE) 12% LOTION 225 GM BTL TOPICAL SCH ×2 (08:58→21:05)
[2017-01-28] MEDS: predniSONE 20 MG TAB PEG SCH (09:00)
[2017-01-28] MEDS: FLUoxetine HCL LIQUID 20 MG/5 ML CUP PEG SCH (09:00)
[2017-01-28] MEDS: LACTOBACILLUS ACIDOPHILUS TAB PEG SCH ×2 (09:00→21:00)
[2017-01-28] MEDS: LANSOPRAZOLE SOLUTAB 30 MG TAB PEG SCH ×2 (09:00→21:01)
[2017-01-28] MEDS: ENOXAPARIN SODIUM 40 MG/0.4 ML SYRINGE SQ SCH (09:00)
[2017-01-28] MEDS: JUVEN POWDER 1 PACK G-TUBE SCH ×2 (09:00→21:00)
[2017-01-28] MEDS: SENNOSIDES SYRUP 8.8 MG/5 ML CUP PEG SCH (09:00)
[2017-01-28 11:42] VITALS: BP 114/78; PULSE 91; RESP 18; TEMP 96.5; O2SAT 97
--- NOTE | 2017-01-28 11:59 | HHI.PR ---
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 Patient appears to be doing well, lying in bed, denying any new complaints. Awaiting case management for discharge planning Objective Vitals Vital Signs Date Time Temp Pulse Resp B/P Pulse Ox O2 Delivery O2 Flow Rate FiO2 01/28/17 11:42 96.5 91 18 114/78 97 01/27/17 20:00 95.8 86 18 108/85 97 I/O 01/27/17 01/27/17 01/27/17 01/28/17 01/28/17 01/28/17 07:00 15:00 23:00 07:00 15:00 23:00 Intake Total 250 ml 740 ml 890 ml Output Total 550 ml 701 ml 450 ml Balance -550 ml 250 ml 39 ml 440 ml Tube Feeding 490 ml 770 ml Other 250 ml 250 ml 120 ml Output Urine Total 550 ml 700 ml 450 ml Stool Total 1 ml # Bowel Movements 0 1 0 Objective Remarks GENERAL: Well-developed, cachectic and contracted. HEENT: Head is normocephalic without any lesions or masses noted. Facial features are symmetric. Eyes: Extraocular muscles are intact. Conjunctivae were clear. NECK: Trachea midline no deviation. CARDIAC: Regular rhythm, tachycardia noted. S1/S2 are heard. No murmurs gallops or rubs. LUNGS: Clear to auscultation bilaterally. No wheeze, rhonchi or rales. No use of accessory muscles on inspiration or expiration. ABDOMEN: Soft, nontender. Nondistended. Bowel sounds heard in all 4 quadrants. No organomegaly or masses. Negative rebound, negative guarding. PEG tube noted without any excoriation. EXTREMITIES: No edema, pulses are equal bilaterally. No cyanosis or clubbing. Ulceration noted over his left lower extremity lateral malleolus Procedures 07/19/16 EGD with PEG tube placement 09/27/16 colonoscopy Urinary Catheter: No Vascular Central Line Catheter: No A/P Assessment and Plan Neuro-Behcet, history of frontal lobe CVA, encephalopathy, history of meningitis , chronic No new changes on imaging. Patient was followed by neurology. Aphasic at baseline. Continue Imuran, prednisone EEG shows mild to moderate slowing at times of various depending on the epoch, there was no epileptic activity seen Continue PT/OT Palliative care evaluated the patient and is still indicating the patient is making his own decisions, full code and full aggressive measures Blurred vision/double vision, secondary to neuro-Behcet's syndrome Ophthalmology consulted and indicates that his visual problems are secondary to neuro-Behcet's syndrome Recommending immunosuppressive and steroids, which the patient is already on Sinus tachycardia. Stable Discontinued Lopressor due to low blood pressure TSH, free T3, free T4 colon were normal Melena, bright red blood in stool, resolved Status post transfusion, emergency transferred to Main hospital, emergent endoscopy GI evaluated and managed patient with emergent colonoscopy showing small ulcer in the colon Continue Prevacid Sepsis, multiple episodes, resolved at this time Patient does have rather significant coccyx decubitus wound: Wound culture with pseudo fluorescens/putida, group D enterococcus VRE which is sensitive to Zosyn. Patient did have one urine culture of Daphney parapsilosis, was treated with fluconazole for 10 days. --Patient had episode of diarrhea, C. difficile cultures performed which was negative. --Possible aseptic meningitis Infectious disease consulted and last seen the patient on 10/18/16, at that time it was indicated to observe off antibiotics. 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 Would benefit from long-term steroids Prerenal azotemia, resolved Continue monitor renal function periodically Hypernatremia, resolved free water flushes 250 cc every 4 hours Monitor sodium level, BMP ordered for 12/20/16 Decreased oral intake and dysphagia on initial presentation Speech therapy following intermittently. S/P barium swallow. Patient with severe dysphagia. GI was consulted and PEG tube was placed. Dietary recommending Glucerna 1.5 bolus feeding 360 mL's at 7 AM, 10 AM, 1 PM, 4 PM and 240 mL's at 7 PM Coccyx decubitus. Wound care nurse is following the patient for management Patient with specialty bed Mood disorder, depression Patient was evaluated by psychiatrist. Prozac 40 mg daily Seroquel 25 mg at bedtime Diabetes Glucose well controlled, DVT Prophylaxis: Lovenox, TEDs/SCDs. Patient examined, records reviewed. No change in treatment plan Discharge Planning Case management for discharge planning, recent records indicate that planning on transferring back to [place], Ede Richardson Jan 28, 2017 11:59
[2017-01-28 20:50] VITALS: BP 114/84; PULSE 44; RESP 22; TEMP 98.7; O2SAT 96
[2017-01-28] MEDS: QUEtiapine FUMARATE 25 MG TAB PO SCH (21:01)
[2017-01-29] MEDS: azaTHIOprine 50 MG TAB PEG SCH ×2 (06:18→12:24)
[2017-01-29] MEDS: JUVEN POWDER 1 PACK G-TUBE SCH ×2 (08:49→21:00)
[2017-01-29] MEDS: SENNOSIDES SYRUP 8.8 MG/5 ML CUP PEG SCH (08:49)
[2017-01-29] MEDS: ENOXAPARIN SODIUM 40 MG/0.4 ML SYRINGE SQ SCH (08:49)
[2017-01-29] MEDS: LACTOBACILLUS ACIDOPHILUS TAB PEG SCH ×2 (08:50→21:47)
[2017-01-29] MEDS: LANSOPRAZOLE SOLUTAB 30 MG TAB PEG SCH ×2 (08:50→21:47)
[2017-01-29] MEDS: FLUoxetine HCL LIQUID 20 MG/5 ML CUP PEG SCH (08:50)
[2017-01-29] MEDS: predniSONE 20 MG TAB PEG SCH (08:50)
[2017-01-29] MEDS: HYOSCYAMINE SOLN 0.125 MG/ML 15 ML BTL PEG PRN (08:51)
[2017-01-29] MEDS: LACTIC ACID (AMMONIUM LACTATE) 12% LOTION 225 GM BTL TOPICAL SCH ×2 (08:51→21:48)
--- NOTE | 2017-01-29 10:08 | HHI.PR ---
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 Patient does not indicate any new complaints. Patient resting carefully in bed. Patient is getting out into the common area of more frequently now. Objective Vitals Vital Signs Date Time Temp Pulse Resp B/P Pulse Ox O2 Delivery O2 Flow Rate FiO2 01/28/17 20:50 98.7 44 22 114/84 96 01/28/17 11:42 96.5 91 18 114/78 97 I/O 01/28/17 01/28/17 01/28/17 01/29/17 01/29/17 01/29/17 07:00 15:00 23:00 07:00 15:00 23:00 Intake Total 890 ml 1590 ml Output Total 450 ml 1200 ml Balance 440 ml 390 ml Tube Feeding 770 ml 840 ml Other 120 ml 750 ml Output Urine Total 450 ml 1200 ml # Bowel Movements 0 Objective Remarks GENERAL: Well-developed, cachectic and contracted. HEENT: Head is normocephalic without any lesions or masses noted. Facial features are symmetric. Eyes: Extraocular muscles are intact. Conjunctivae were clear. NECK: Trachea midline no deviation. CARDIAC: Regular rhythm, tachycardia noted. S1/S2 are heard. No murmurs gallops or rubs. LUNGS: Clear to auscultation bilaterally. No wheeze, rhonchi or rales. No use of accessory muscles on inspiration or expiration. ABDOMEN: Soft, nontender. Nondistended. Bowel sounds heard in all 4 quadrants. No organomegaly or masses. Negative rebound, negative guarding. PEG tube noted without any excoriation. EXTREMITIES: No edema, pulses are equal bilaterally. No cyanosis or clubbing. Ulceration noted over his left lower extremity lateral malleolus Procedures 07/19/16 EGD with PEG tube placement 09/27/16 colonoscopy Urinary Catheter: No Vascular Central Line Catheter: No A/P Assessment and Plan Neuro-Behcet, history of frontal lobe CVA, encephalopathy, history of meningitis , chronic No new changes on imaging. Patient was followed by neurology. Aphasic at baseline. Continue Imuran, prednisone EEG shows mild to moderate slowing at times of various depending on the epoch, there was no epileptic activity seen Continue PT/OT Palliative care evaluated the patient and is still indicating the patient is making his own decisions, full code and full aggressive measures Blurred vision/double vision, secondary to neuro-Behcet's syndrome Ophthalmology consulted and indicates that his visual problems are secondary to neuro-Behcet's syndrome Recommending immunosuppressive and steroids, which the patient is already on Sinus tachycardia. Stable Discontinued Lopressor due to low blood pressure TSH, free T3, free T4 colon were normal Melena, bright red blood in stool, resolved Status post transfusion, emergency transferred to Main hospital, emergent endoscopy GI evaluated and managed patient with emergent colonoscopy showing small ulcer in the colon Continue Prevacid Sepsis, multiple episodes, resolved at this time Patient does have rather significant coccyx decubitus wound: Wound culture with pseudo fluorescens/putida, group D enterococcus VRE which is sensitive to Zosyn. Patient did have one urine culture of Daphney parapsilosis, was treated with fluconazole for 10 days. --Patient had episode of diarrhea, C. difficile cultures performed which was negative. --Possible aseptic meningitis Infectious disease consulted and last seen the patient on 10/18/16, at that time it was indicated to observe off antibiotics. 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 Would benefit from long-term steroids Prerenal azotemia, resolved Continue monitor renal function periodically Hypernatremia, resolved free water flushes 250 cc every 4 hours Monitor sodium level, BMP ordered for 12/20/16 Decreased oral intake and dysphagia on initial presentation Speech therapy following intermittently. S/P barium swallow. Patient with severe dysphagia. GI was consulted and PEG tube was placed. Dietary recommending Glucerna 1.5 bolus feeding 360 mL's at 7 AM, 10 AM, 1 PM, 4 PM and 240 mL's at 7 PM Coccyx decubitus. Wound care nurse is following the patient for management Patient with specialty bed Mood disorder, depression Patient was evaluated by psychiatrist. Prozac 40 mg daily Seroquel 25 mg at bedtime Diabetes Glucose well controlled, DVT Prophylaxis: Lovenox, TEDs/SCDs. Patient examined, records reviewed. No change in treatment plan Discharge Planning Case management for discharge planning, recent records indicate that planning on transferring back to [place], Ede Richardson Jan 29, 2017 10:08
[2017-01-29 10:10] VITALS: BP 99/79; PULSE 93; RESP 15; TEMP 96.9; O2SAT 97
[2017-01-29] MEDS: ACETAMINOPHEN/HYDROcodone 325 MG/5 MG TAB PEG PRN (12:25)
[2017-01-29] MEDS: ONDANSETRON HCL 4 MG/5 ML UDC PEG PRN (12:25)
[2017-01-29 19:03] VITALS: BP 110/79; PULSE 120; RESP 16; TEMP 96.6; O2SAT 97
[2017-01-29 20:00] VITALS: BP 110/79; PULSE 120; RESP 16; TEMP 96.6; O2SAT 97
[2017-01-29] MEDS: QUEtiapine FUMARATE 25 MG TAB PO SCH (21:47)
[2017-01-30] MEDS: azaTHIOprine 50 MG TAB PEG SCH ×2 (05:26→07:33)
[2017-01-30] MEDS: ACETAMINOPHEN/HYDROcodone 325 MG/5 MG TAB PEG PRN (05:28)
[2017-01-30] MEDS: SENNOSIDES SYRUP 8.8 MG/5 ML CUP PEG SCH (07:33)
[2017-01-30] MEDS: FLUoxetine HCL LIQUID 20 MG/5 ML CUP PEG SCH (07:33)
[2017-01-30] MEDS: ENOXAPARIN SODIUM 40 MG/0.4 ML SYRINGE SQ SCH (07:33)
[2017-01-30] MEDS: ONDANSETRON HCL 4 MG/5 ML UDC PEG PRN (07:33)
[2017-01-30] MEDS: LANSOPRAZOLE SOLUTAB 30 MG TAB PEG SCH ×2 (07:33→20:56)
[2017-01-30] MEDS: LACTOBACILLUS ACIDOPHILUS TAB PEG SCH ×2 (07:33→20:56)
[2017-01-30] MEDS: predniSONE 20 MG TAB PEG SCH (07:33)
[2017-01-30] MEDS: JUVEN POWDER 1 PACK G-TUBE SCH ×2 (07:34→20:56)
[2017-01-30] MEDS: LACTIC ACID (AMMONIUM LACTATE) 12% LOTION 225 GM BTL TOPICAL SCH ×2 (07:38→20:57)
--- NOTE | 2017-01-30 07:48 | HHI.PR ---
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 Patient denies any new complaints. Family did come and visit him yesterday. Patient states that he is tolerating the bolus feeding quite well, denies any GI discomfort. Objective Vitals Vital Signs Date Time Temp Pulse Resp B/P Pulse Ox O2 Delivery O2 Flow Rate FiO2 01/29/17 20:00 96.6 120 16 110/79 97 01/29/17 19:03 96.6 120 16 110/79 97 01/29/17 10:10 96.9 93 15 99/79 97 I/O 01/29/17 01/29/17 01/29/17 01/30/17 01/30/17 01/30/17 07:00 15:00 23:00 07:00 15:00 23:00 Intake Total 40 ml 360 ml Balance 40 ml 360 ml Tube Feeding 40 ml 360 ml # Voids 5 1 # Bowel Movements 1 Objective Remarks GENERAL: Well-developed, cachectic and contracted. HEENT: Head is normocephalic without any lesions or masses noted. Facial features are symmetric. Eyes: Extraocular muscles are intact. Conjunctivae were clear. NECK: Trachea midline no deviation. CARDIAC: Regular rhythm, tachycardia noted. S1/S2 are heard. No murmurs gallops or rubs. LUNGS: Clear to auscultation bilaterally. No wheeze, rhonchi or rales. No use of accessory muscles on inspiration or expiration. ABDOMEN: Soft, nontender. Nondistended. Bowel sounds heard in all 4 quadrants. No organomegaly or masses. Negative rebound, negative guarding. PEG tube noted without any excoriation. EXTREMITIES: No edema, pulses are equal bilaterally. No cyanosis or clubbing. Ulceration noted over his left lower extremity lateral malleolus Procedures 07/19/16 EGD with PEG tube placement 09/27/16 colonoscopy Urinary Catheter: No Vascular Central Line Catheter: No A/P Assessment and Plan Neuro-Behcet, history of frontal lobe CVA, encephalopathy, history of meningitis , chronic No new changes on imaging. Patient was followed by neurology. Aphasic at baseline. Continue Imuran, prednisone EEG shows mild to moderate slowing at times of various depending on the epoch, there was no epileptic activity seen Continue PT/OT Palliative care evaluated the patient and is still indicating the patient is making his own decisions, full code and full aggressive measures Blurred vision/double vision, secondary to neuro-Behcet's syndrome Ophthalmology consulted and indicates that his visual problems are secondary to neuro-Behcet's syndrome Recommending immunosuppressive and steroids, which the patient is already on Sinus tachycardia. Stable Discontinued Lopressor due to low blood pressure TSH, free T3, free T4 colon were normal Melena, bright red blood in stool, resolved Status post transfusion, emergency transferred to Main hospital, emergent endoscopy GI evaluated and managed patient with emergent colonoscopy showing small ulcer in the colon Continue Prevacid Sepsis, multiple episodes, resolved at this time Patient does have rather significant coccyx decubitus wound: Wound culture with pseudo fluorescens/putida, group D enterococcus VRE which is sensitive to Zosyn. Patient did have one urine culture of Daphney parapsilosis, was treated with fluconazole for 10 days. --Patient had episode of diarrhea, C. difficile cultures performed which was negative. --Possible aseptic meningitis Infectious disease consulted and last seen the patient on 10/18/16, at that time it was indicated to observe off antibiotics. 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 Would benefit from long-term steroids Prerenal azotemia, resolved Continue monitor renal function periodically Hypernatremia, resolved free water flushes 250 cc every 4 hours Monitor sodium level, BMP ordered for 12/20/16 Decreased oral intake and dysphagia on initial presentation Speech therapy following intermittently. S/P barium swallow. Patient with severe dysphagia. GI was consulted and PEG tube was placed. Dietary recommending Glucerna 1.5 bolus feeding 360 mL's at 7 AM, 10 AM, 1 PM, 4 PM and 240 mL's at 7 PM Coccyx decubitus. Wound care nurse is following the patient for management Patient with specialty bed Mood disorder, depression Patient was evaluated by psychiatrist. Prozac 40 mg daily Seroquel 25 mg at bedtime Diabetes Glucose well controlled, DVT Prophylaxis: Lovenox, TEDs/SCDs. Patient examined, records reviewed. No change in treatment plan Discharge Planning Case management for discharge planning, recent records indicate that planning on transferring back to [place], Ede Richardson Jan 30, 2017 07:48
[2017-01-30 08:41] VITALS: BP 112/81; PULSE 70; RESP 18; TEMP 97; O2SAT 96
[2017-01-30 20:00] VITALS: BP 124/89; PULSE 110; RESP 20; TEMP 98.3; O2SAT 96
[2017-01-30] MEDS: QUEtiapine FUMARATE 25 MG TAB PO SCH (20:56)
[2017-01-31] MEDS: azaTHIOprine 50 MG TAB PEG SCH ×2 (05:30→07:54)
[2017-01-31] MEDS: LACTIC ACID (AMMONIUM LACTATE) 12% LOTION 225 GM BTL TOPICAL SCH ×2 (07:52→21:00)
[2017-01-31] MEDS: SENNOSIDES SYRUP 8.8 MG/5 ML CUP PEG SCH (07:53)
[2017-01-31] MEDS: ONDANSETRON HCL 4 MG/5 ML UDC PEG PRN (07:53)
[2017-01-31] MEDS: FLUoxetine HCL LIQUID 20 MG/5 ML CUP PEG SCH (07:53)
[2017-01-31] MEDS: predniSONE 20 MG TAB PEG SCH (07:53)
[2017-01-31] MEDS: ENOXAPARIN SODIUM 40 MG/0.4 ML SYRINGE SQ SCH (07:54)
[2017-01-31] MEDS: LACTOBACILLUS ACIDOPHILUS TAB PEG SCH ×2 (07:54→20:59)
[2017-01-31] MEDS: ACETAMINOPHEN/HYDROcodone 325 MG/5 MG TAB PEG PRN ×2 (07:54→21:00)
[2017-01-31] MEDS: JUVEN POWDER 1 PACK G-TUBE SCH ×2 (07:54→21:00)
[2017-01-31] MEDS: LANSOPRAZOLE SOLUTAB 30 MG TAB PEG SCH ×2 (07:54→20:59)
[2017-01-31 08:00] VITALS: BP 112/80; PULSE 129; RESP 20; TEMP 100.4; O2SAT 95
--- NOTE | 2017-01-31 11:02 | HHI.PR ---
Subjective Remarks Follow-up for neuro Behcet's syndrome. When I ask the patient if he is ok, he nods "yes". Nurse tells me that the patient may be receiving too much tube feeding as he has had vomiting. He is currently on bolus feeds. Objective Vitals Vital Signs Date Time Temp Pulse Resp B/P Pulse Ox O2 Delivery O2 Flow Rate FiO2 01/30/17 20:00 98.3 110 20 124/89 96 I/O 01/30/17 01/30/17 01/30/17 01/31/17 01/31/17 01/31/17 07:00 15:00 23:00 07:00 15:00 23:00 Intake Total 360 ml 1520 ml 500 ml Output Total 450 ml Balance 360 ml 1520 ml 50 ml Tube Feeding 360 ml 1120 ml Tube Irrigant 400 ml 500 ml Output Urine Total 450 ml # Voids 1 Objective Remarks GENERAL: Thin patient in no apparent distress. EYES: No conjunctival injection bilaterally. CARDIOVASCULAR: Tachycardic rate and regular rhythm. RESPIRATORY: Grunting upper respiratory sounds transmitted to RLL. Clear LLL. GASTROINTESTINAL: Abdomen soft, non-tender, nondistended. Feeding tube present. NEUROLOGICAL: Awake and alert. Nods head to answer questions. Urine yellow, concentrated in Kowalski bag. 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 (2) Sepsis ICD Code: A41.9 Status: Resolved (3) Encephalopathy ICD Code: G93.40 Status: Resolved (4) GI bleed ICD Code: K92.2 Status: Resolved (5) HCAP (healthcare-associated pneumonia) ICD Code: J18.9 Status: Resolved (6) UTI (urinary tract infection) ICD Code: N39.0 Status: Resolved (7) Leucocytosis ICD Code: D72.829 Status: Resolved (8) Fever ICD Code: R50.9 Status: Resolved (9) Effusion of hip joint ICD Code: M25.459 Status: Acute (10) Xeroderma ICD Code: Q80.9 Status: Acute (11) Blurred vision, bilateral ICD Code: H53.8 Status: Acute Assessment and Plan Blurred vision/Diplopia: Related to his neuro Behet's syndrome. -Ophthalmology evaluated patient on 01/11/17. 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 Recommends immunosuppressants and steroids which patient is currently on. Neuro-Behcet, history of frontal lobe CVA, encephalopathy, history of meningitis , chronic No new changes on imaging. Patient followed by neurology. Aphasic at baseline. Neurology following the patient Continue Imuran, prednisone EEG shows mild to moderate slowing at times of various depending on the epoch, there was no epileptic activity seen Continue PT/OT Palliative care following the patient and is still indicating the patient is making his own decisions, full code and full aggressive measures [place] as needed for pain. Sepsis, multiple episodes: Resolved. Patient does have rather significant coccyx decubitus wound: Wound culture with pseudo fluorescens/putida, group D enterococcus VRE which is sensitive to Zosyn. Patient did have one urine culture of Daphney parapsilosis, was treated with fluconazole for 10 days. Patient had episode of diarrhea, C. difficile cultures performed which was negative. Possible aseptic meningitis Infectious disease consulted and last seen the patient on 10/18/16, at that time it was indicated to observe off antibiotics. 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 Would benefit from long-term steroids. Patient had an axillary temp of 99.4 this morning (although inappropriately documented as higher). I have asked nurse to recheck temp to assess for true fever. CBC w/diff and BMP ordered although temp likely related to neuro-Behet' s. Diabetes: stable HbA1c 6.6 on 09/25/16. Glucose was well controlled so Accu-Cheks and sliding scale insulin were discontinued. 01/31: Resume Accu-checks bid as patient's tube feeding now changed to non carbohydrate-controlled formula. Sinus tachycardia: Stable. S/p Lopressor TSH, free T3, free T4 were normal Melena, bright red blood in stool: Resolved Status post transfusion, emergently transferred to [facility], emergent endoscopy GI evaluated and managed patient with emergent colonoscopy showing small ulcer in the colon Continue Prevacid Hemoglobin stable Hypotension: stable -Lopressor discontinued on 01/02. Prerenal azotemia: Improved. BUN decreased to 21. Continue to monitor renal function periodically. Hypernatremia and hyperchloremia: Resolved. Continue free water flushes 200 cc every 4 hours Decreased oral intake and dysphagia on initial presentation Speech therapy following intermittently. S/P barium swallow. Patient with severe dysphagia. GI consulted and PEG tube was placed. Dietary recommending Glucerna 1.5 at 70 mL/hour with Maury twice daily. Coccyx decubitus: Wound care nurse is following the patient for management. Recommends continuing to change dressings with Santyl ointment and cleansing with normal saline only. Apply luis thick Santyl ointment to slightly moistened Maxorb II dressing loosely packed in wound bed and cover with bordered gauze, to be changed daily. Specialty bed Ankle ulcer: R lateral malleolus. -Foam boots. Wound care has evaluated; paint with skin prep or betadine and leave open to air. Depression: Patient was evaluated by psychiatrist. Continue Prozac 40 mg daily and Seroquel 25 mg HS. DVT Prophylaxis: Lovenox, TEDs/SCDs. Discharge Planning 01/27: plant senior manager called [facility] following up on assistance plan to transfer patient there, awaiting return call. Problem Qualifiers (1) GI bleed: Qualified Code: K92.2 - Gastrointestinal hemorrhage, unspecified gastrointestinal hemorrhage type (2) UTI (urinary tract infection): Qualified Code: N30.00 - Acute cystitis without hematuria (3) Effusion of hip joint: Qualified Code: M25.459 - Effusion of hip joint, unspecified laterality Mari Talamantes Jan 31, 2017 11:01
[2017-01-31 14:26] LABS: AUTOMATED NEUTROPHIL # 19.2 TH/MM3 (1.8-7.7); BASOPHIL # 0.3 TH/MM3 (0-0.2); BASOPHIL % 1.6 % (0.0-2.0); HEMATOCRIT 39.5 % (39.0-51.0); HEMOGLOBIN 12.9 GM/DL (13.0-17.0); LYMPH % 1.9 % (9.0-44.0); LYMPHOCYTE # 0.4 TH/MM3 (1.0-4.8); MEAN CELL VOLUME 91.4 FL (80.0-100.0); MEAN CORPUSCULAR HEMOGLOBIN 29.8 PG (27.0-34.0); MEAN CORPUSCULAR HGB CONC 32.6 % (32.0-36.0); MEAN PLATELET VOLUME 8.7 FL (7.0-11.0); MONO % 1.5 % (0.0-8.0); MONOCYTE # 0.3 TH/MM3 (0-0.9); PLATELET COUNT 335 TH/MM3 (150-450); RED BLOOD COUNT 4.32 MIL/MM3 (4.50-5.90); RED CELL DISTRIBUTION WIDTH 14.6 % (11.6-17.2); WHITE BLOOD COUNT 20.2 TH/MM3 (4.0-11.0)
[2017-01-31 14:40] LABS: BICARBONATE 26.9 MEQ/L (21.0-32.0); CALCIUM 9.4 MG/DL (8.5-10.1)
[2017-01-31 14:44] LABS: CREATININE 0.9 MG/DL (0.60-1.30)
--- NOTE | 2017-01-31 17:45 | RADRPT ---
EXAM DATE/TIME: 01/31/2017 17:17 [place] COMPARISON: CHEST SINGLE AP, November 10, 2016, 5:04. INDICATIONS : Fever. MEDICAL HISTORY : Stroke. Cardiovascular disease. SURGICAL HISTORY : None. ENCOUNTER: Subsequent ACUITY: 4 - 6 months PAIN SCORE: Non-responsive. LOCATION: Bilateral chest FINDINGS: A single view of the chest demonstrates the lungs to be symmetrically aerated without evidence of mas s, infiltrate or effusion. The cardiomediastinal contours are unremarkable. Healed left clavicle fra cture.. CONCLUSION: No acute disease Josafat Meyer MD on January 31, 2017 at 17:42 Board Certified Radiologist. This report was verified electronically.
[2017-01-31 18:06] LABS: BILIRUBIN, URINE NEG (NEG); BLOOD, URINE NEG (NEG); KETONE, URINE NEG (NEG); NITRITE,URINE NEG (NEG); PH, URINE 8.5 (5.0-8.5); URINE LEUKOCYTE ESTERASE NEG (NEG)
[2017-01-31 18:07] LABS: GLUCOSE,URINE 1000 OR GREATER mg/dL (NEG)
[2017-01-31 18:10] LABS: URINE COLOR YELLOW (YELLW/STRAW)
[2017-01-31 18:11] LABS: AMORPHOUS SEDIMENT, URINE SMALL; MUCUS URINE OCC /lpf (OCC); RBC, URINE 0-3 /hpf (0-3); SQUAMOUS EPITHELIAL CELL URINE 0-5 /hpf (0-5); WBC, URINE 0-2 /hpf (0-5)
[2017-01-31] MEDS: SODIUM CHLOR 0.9% 1000 ML INJ 1,000 ML IV SCH (18:34)
[2017-01-31 20:00] VITALS: BP 110/83; PULSE 97; PULSE 98; RESP 23; TEMP 98.5; O2SAT 92
[2017-01-31] MEDS: QUEtiapine FUMARATE 25 MG TAB PO SCH (20:59)
[2017-01-31] MEDS: INSULIN ASPART SUPPLEMENTAL SCALE SQ SCH (21:00)
[2017-02-01] VITALS: BP 100/74; PULSE 88; RESP 21; TEMP 97.5; O2SAT 93
[2017-02-01] MEDS: SODIUM CHLOR 0.9% 1000 ML INJ 1,000 ML IV SCH ×2 (02:28→12:08)
[2017-02-01] MEDS: azaTHIOprine 50 MG TAB PEG SCH ×2 (05:53→07:55)
[2017-02-01] MEDS: INSULIN ASPART SUPPLEMENTAL SCALE SQ SCH ×4 (06:00→20:39)
[2017-02-01 07:06] VITALS: PULSE 96
[2017-02-01] MEDS: JUVEN POWDER 1 PACK G-TUBE SCH ×2 (07:53→20:40)
[2017-02-01] MEDS: LANSOPRAZOLE SOLUTAB 30 MG TAB PEG SCH ×2 (07:54→20:25)
[2017-02-01] MEDS: ACETAMINOPHEN/HYDROcodone 325 MG/5 MG TAB PEG PRN (07:54)
[2017-02-01] MEDS: FLUoxetine HCL LIQUID 20 MG/5 ML CUP PEG SCH (07:54)
[2017-02-01] MEDS: ONDANSETRON HCL 4 MG/5 ML UDC PEG PRN (07:54)
[2017-02-01] MEDS: ENOXAPARIN SODIUM 40 MG/0.4 ML SYRINGE SQ SCH (07:55)
[2017-02-01] MEDS: SENNOSIDES SYRUP 8.8 MG/5 ML CUP PEG SCH (07:55)
[2017-02-01] MEDS: predniSONE 20 MG TAB PEG SCH (07:55)
[2017-02-01] MEDS: LACTOBACILLUS ACIDOPHILUS TAB PEG SCH ×2 (07:55→20:25)
[2017-02-01] MEDS: LACTIC ACID (AMMONIUM LACTATE) 12% LOTION 225 GM BTL TOPICAL SCH ×2 (07:55→20:26)
[2017-02-01 08:00] VITALS: BP 111/79; PULSE 103; RESP 18; TEMP 98.4; O2SAT 96
[2017-02-01 08:41] LABS: AUTOMATED NEUTROPHIL # 11.9 TH/MM3 (1.8-7.7); BASOPHIL # 0.2 TH/MM3 (0-0.2); BASOPHIL % 1.6 % (0.0-2.0); EOSINOPHIL # 0.1 TH/MM3 (0-0.4); EOSINOPHIL % 0.4 % (0.0-4.0); HEMATOCRIT 33.9 % (39.0-51.0); HEMOGLOBIN 10.8 GM/DL (13.0-17.0); LYMPH % 5.9 % (9.0-44.0); LYMPHOCYTE # 0.8 TH/MM3 (1.0-4.8); MEAN CELL VOLUME 93.3 FL (80.0-100.0); MEAN CORPUSCULAR HEMOGLOBIN 29.8 PG (27.0-34.0); MEAN CORPUSCULAR HGB CONC 31.9 % (32.0-36.0); MONO % 3.5 % (0.0-8.0); MONOCYTE # 0.5 TH/MM3 (0-0.9); NEUT % 88.6 % (16.0-70.0); PLATELET COUNT 280 TH/MM3 (150-450); RED BLOOD COUNT 3.63 MIL/MM3 (4.50-5.90); RED CELL DISTRIBUTION WIDTH 15.6 % (11.6-17.2); WHITE BLOOD COUNT 13.5 TH/MM3 (4.0-11.0)
--- NOTE | 2017-02-01 11:55 | HHI.PR ---
Subjective Remarks Follow-up for neuro Behet's syndrome, SIRS. Nurse got report from night nurse that patient was retaining urine and required straight catheterization with 550 cc of urine output last night. Nurse states patient has not been putting out urine today. Patient denies any fevers or chills. Denies any shortness of breath or abdominal pain. Objective Vitals Vital Signs Date Time Temp Pulse Resp B/P Pulse Ox O2 Delivery O2 Flow Rate FiO2 02/01/17 07:06 96 02/01/17 00:00 97.5 88 21 100/74 93 01/31/17 20:00 98.5 97 23 110/83 92 01/31/17 20:00 98 I/O 01/31/17 01/31/17 01/31/17 02/01/17 02/01/17 02/01/17 07:00 15:00 23:00 07:00 15:00 23:00 Intake Total 500 ml 0 ml 1801 ml Output Total 450 ml 550 ml Balance 50 ml 0 ml 1251 ml Intake Oral 0 ml IV Total 1123 ml Tube Irrigant 500 ml 428 ml Other 250 ml Output Urine Total 450 ml 550 ml # Voids 0 # Bowel Movements 0 0 Result Diagram: 02/01/17 0825 01/31/17 1420 Objective Remarks GENERAL: Thin patient in no apparent distress. SKIN: Ulceration to R lateral malleolus; no surrounding erythema. CARDIOVASCULAR: Normal rate and regular rhythm. RESPIRATORY: Transmitted grunting breath sounds. GASTROINTESTINAL: Active bowel sounds. Abdomen soft, non-tender, nondistended. Feeding tube present. MUSCULOSKELETAL: 2+ DP pulses bilaterally. NEUROLOGICAL: Awake and alert. Nods head to answer questions. 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 Acute 01/31/17. Temp 99.4 axillary followed by 99.2 axillary. WBC 20.2. Increasingly tachycardic. -Lactic acid normal. -Although aspiration had been suspected due to vomiting, chest x-ray is without evidence of pneumonia. -Nurse stated urine was malodorous yesterday but UA is without infection. -Blood cultures x 2 reveal No growth in 1 day. -Nurse states wound to coccyx appears healing, and R ankle wound appears without infection. -No increase in BMs. -Telemetry -02/01: Afebrile overnight. WBC improved to 13.5. Tachycardia improved. No source of infection evident. -Repeat am CBC Urinary retention: Acute. 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 -Kowalski ordered. -Monitor intake and output. -Patient will likely need to keep in place as he is non-ambulatory. -Repeat am BMP. Diabetes: stable HbA1c 6.6 on 09/25/16. 01/31: Resume Accu-checks and low dose SSI as patient's tube feeding now changed to non carbohydrate-controlled formula and random BGL 250 this afternoon even prior to starting new formula. 02/01: Patient required 1 unit of insulin last night, but BGLs better controlled today. Continue to monitor. Prerenal azotemia: Improved. BUN 23-->20. -IVF discontinued. Continue to monitor renal function periodically. Decreased oral intake and dysphagia on initial presentation Speech therapy following intermittently. S/P barium swallow. Patient with severe dysphagia. GI consulted and PEG tube was placed. 01/31: Subsea Engineer following. Due to vomiting tube feeding changed to low volume TwoCal HN @ 30ml/hr, increase 10ml Q 4hr, as tolerated to goal rate 50ml/hr. Free Water Flushes: 200ml Q 6hr or for Dual Kangaroo Pump, recommend 33ml free water/hr. Additional free water flush of 480ml w/1-pkt Maury bid (1-pkt Maury mixed w/240ml via g-tube bid) Neuro-Behcet, history of frontal lobe CVA, encephalopathy, history of meningitis , chronic No new changes on imaging. Patient followed by neurology. Aphasic at baseline. Neurology following the patient Continue Imuran, prednisone EEG shows mild to moderate slowing at times of various depending on the epoch, there was no epileptic activity seen Continue PT/OT Palliative care following the patient and is still indicating the patient is making his own decisions, full code and full aggressive measures [place] as needed for pain. Blurred vision/Diplopia: Related to his neuro Behet's syndrome. -Ophthalmology evaluated patient on 01/11/17. 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 Recommends immunosuppressants and steroids which patient is currently on. Sepsis, multiple episodes: Resolved. Coccyx decubitus wound: Wound culture with pseudo fluorescens/putida, group D enterococcus VRE which is sensitive to Zosyn. Patient did have one urine culture of Daphney parapsilosis, was treated with fluconazole for 10 days. Patient had episode of diarrhea, C. difficile cultures performed which was negative. Infectious disease consulted and last seen the patient on 10/18/16, at that time it was indicated to observe off antibiotics. 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 Would benefit from long-term steroids. Sinus tachycardia: Stable. S/p Lopressor TSH, free T3, free T4 were normal Melena, bright red blood in stool: Resolved Status post transfusion, emergently transferred to [facility], emergent endoscopy GI evaluated and managed patient with emergent colonoscopy showing small ulcer in the colon Continue Prevacid Hemoglobin stable Hypotension: stable -Lopressor discontinued on 01/02. Hypernatremia and hyperchloremia: Resolved. Continue free water flushes 200 cc every 4 hours Coccyx decubitus: Wound care nurse is following the patient for management. Recommends continuing to change dressings with Santyl ointment and cleansing with normal saline only. Apply luis thick Santyl ointment to slightly moistened Maxorb II dressing loosely packed in wound bed and cover with bordered gauze, to be changed daily. Specialty bed Ankle ulcer: R lateral malleolus. -Foam boots. Wound care has evaluated; paint with skin prep or betadine and leave open to air. Depression: Patient was evaluated by psychiatrist. Continue Prozac 40 mg daily and Seroquel 25 mg HS. DVT Prophylaxis: Lovenox, TEDs/SCDs. Discharge Planning 01/27: hotel sales manager called [facility] following up on assistance plan to transfer patient there, awaiting return call. Problem Qualifiers (1) GI bleed: Qualified Code: K92.2 - Gastrointestinal hemorrhage, unspecified gastrointestinal hemorrhage type (2) UTI (urinary tract infection): Qualified Code: N30.00 - Acute cystitis without hematuria (3) Effusion of hip joint: Qualified Code: M25.459 - Effusion of hip joint, unspecified laterality Mari Talamantes Feb 01, 2017 11:55
[2017-02-01 12:05] LABS: BICARBONATE 27.1 MEQ/L (21.0-32.0); CALCIUM 8.8 MG/DL (8.5-10.1); CREATININE 0.69 MG/DL (0.60-1.30)
[2017-02-01 15:45] VITALS: PULSE 84
[2017-02-01 20:00] VITALS: BP 110/67; PULSE 62; RESP 22; TEMP 97.5; O2SAT 96
[2017-02-01] MEDS: QUEtiapine FUMARATE 25 MG TAB PO SCH (20:25)
[2017-02-01 23:00] VITALS: PULSE 82
[2017-02-02] VITALS: BP 102/68; PULSE 76; RESP 20; TEMP 96.7; O2SAT 95
[2017-02-02 04:00] VITALS: BP 103/73; PULSE 96; RESP 20; TEMP 98.6; O2SAT 94
[2017-02-02] MEDS: azaTHIOprine 50 MG TAB PEG SCH ×2 (05:29→07:41)
[2017-02-02] MEDS: INSULIN ASPART SUPPLEMENTAL SCALE SQ SCH ×4 (06:28→21:00)
[2017-02-02 07:19] LABS: AUTOMATED NEUTROPHIL # 8.4 TH/MM3 (1.8-7.7); BASOPHIL % 0.4 % (0.0-2.0); EOSINOPHIL # 0.1 TH/MM3 (0-0.4); EOSINOPHIL % 0.7 % (0.0-4.0); HEMATOCRIT 32.5 % (39.0-51.0); HEMOGLOBIN 10.8 GM/DL (13.0-17.0); LYMPH % 9.6 % (9.0-44.0); MEAN CELL VOLUME 92.9 FL (80.0-100.0); MEAN CORPUSCULAR HGB CONC 33.4 % (32.0-36.0); MEAN PLATELET VOLUME 9.1 FL (7.0-11.0); MONO % 5.4 % (0.0-8.0); MONOCYTE # 0.5 TH/MM3 (0-0.9); NEUT % 83.9 % (16.0-70.0); PLATELET COUNT 266 TH/MM3 (150-450); RED BLOOD COUNT 3.49 MIL/MM3 (4.50-5.90)
[2017-02-02 07:27] LABS: BICARBONATE 27.5 MEQ/L (21.0-32.0); CALCIUM 8.6 MG/DL (8.5-10.1); MAGNESIUM 1.7 MG/DL (1.5-2.5)
[2017-02-02 07:31] LABS: CREATININE 0.66 MG/DL (0.60-1.30)
[2017-02-02] MEDS: FLUoxetine HCL LIQUID 20 MG/5 ML CUP PEG SCH (07:40)
[2017-02-02] MEDS: ONDANSETRON HCL 4 MG/5 ML UDC PEG PRN (07:40)
[2017-02-02] MEDS: SENNOSIDES SYRUP 8.8 MG/5 ML CUP PEG SCH (07:40)
[2017-02-02] MEDS: predniSONE 20 MG TAB PEG SCH (07:41)
[2017-02-02] MEDS: LACTOBACILLUS ACIDOPHILUS TAB PEG SCH ×2 (07:41→20:42)
[2017-02-02] MEDS: LANSOPRAZOLE SOLUTAB 30 MG TAB PEG SCH ×2 (07:41→20:43)
[2017-02-02] MEDS: ACETAMINOPHEN/HYDROcodone 325 MG/5 MG TAB PEG PRN ×2 (07:41→20:43)
[2017-02-02] MEDS: LACTIC ACID (AMMONIUM LACTATE) 12% LOTION 225 GM BTL TOPICAL SCH ×2 (07:42→20:43)
[2017-02-02] MEDS: JUVEN POWDER 1 PACK G-TUBE SCH ×2 (07:43→20:43)
[2017-02-02] MEDS: ENOXAPARIN SODIUM 40 MG/0.4 ML SYRINGE SQ SCH (07:44)
[2017-02-02 08:00] VITALS: BP 104/66; PULSE 112; RESP 23; TEMP 96.7; O2SAT 98
[2017-02-02] MEDS: MAGNESIUM SULFATE 1 GM PREMIX 100 ML IV SCH (08:35)
[2017-02-02 09:07] VITALS: PULSE 89
--- NOTE | 2017-02-02 10:28 | HHI.PR ---
Subjective Remarks Follow-up for neuro Behet's syndrome, SIRS. The patient admits to feeling short of breath which started yesterday. He denies any fevers or chills, cough , or abdominal pain. Nurse states patient did not have a bowel movement yesterday, and denies any further vomiting. Objective Vitals Vital Signs Date Time Temp Pulse Resp B/P Pulse Ox O2 Delivery O2 Flow Rate FiO2 02/02/17 09:07 89 02/02/17 08:00 96.7 112 23 104/66 98 02/02/17 04:00 98.6 96 20 103/73 94 02/02/17 00:00 96.7 76 20 102/68 95 02/01/17 23:00 82 02/01/17 20:00 97.5 62 22 110/67 96 02/01/17 15:45 84 I/O 02/01/17 02/01/17 02/01/17 02/02/17 02/02/17 02/02/17 07:00 15:00 23:00 07:00 15:00 23:00 Intake Total 1801 ml 760 ml Output Total 550 ml 550 ml 450 ml Balance 1251 ml 210 ml -450 ml IV Total 1123 ml Tube Feeding 360 ml Tube Irrigant 428 ml Other 250 ml 400 ml Output Urine Total 550 ml 550 ml 450 ml # Bowel Movements 0 0 0 Result Diagram: 02/02/1763902/02/1740 Objective Remarks GENERAL: Thin patient in no apparent distress. CARDIOVASCULAR: Normal rate 84 bpm with regular rhythm. RESPIRATORY: Upper respiratory secretions. Coarse breath sounds bilaterally, mild wheeze on the Right. GASTROINTESTINAL: Abdomen soft, non-tender, nondistended. Feeding tube present. NEUROLOGICAL: Awake and alert. Nods head to answer questions. Yellow concentrated urine in Kowalski bag. 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 Patient has secretions and coarse breath sounds with mild wheeze on the right. Remains afebrile. O2 saturation is 98% on RA. White blood cell count is normal. Recent chest x-ray on 01/31 normal. -Spoke with RT who performed suctioning of large amount of secretions. -1 Duoneb ordered now with Duonebs q4h as needed for wheezing/SOB. -Nursing to continue regular suctioning as needed. Hypokalemia: Acute. Mild 3.4. Mild hypomagnesemia 1.7. -25 mEq Eff KCl ordered as liquid is out of stock -2 g IV MgSO4 ordered to keep Mg >/= 2.0. -Repeat K+ and Mg levels in the am. SIRS: Improved. Acute 01/31/17. Temp 99.4 axillary followed by 99.2 axillary. WBC 20.2. Increasingly tachycardic. -Lactic acid normal. -Although aspiration had been suspected due to vomiting, chest x-ray is without evidence of pneumonia. -Nurse stated urine was malodorous yesterday but UA is without infection. -Blood cultures x 2 reveal No growth in 1 day. -Nurse states wound to coccyx appears healing, and R ankle wound appears without infection. -No increase in BMs. -02/02: Afebrile overnight. WBC improved to 10.0. No source of infection evident. Telemetry reviewed with no acute events, just tachycardia which is normal for patient; discontinue. Urinary retention: Stable. 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 -Kowalski ordered. -Monitor intake and output. Had 1 L of urine output over the last 24 hours, but balance of -240. Need to make sure patient stays hydrated. -Patient will likely need to keep in place as he is non-ambulatory. Diabetes: stable HbA1c 6.6 on 09/25/16. 01/31: Resume Accu-checks and low dose SSI as patient's tube feeding now changed to non carbohydrate-controlled formula and random BGL 250 this afternoon even prior to starting new formula. 02/02: BGLs controlled. Has not utilized SSI since 01/31. Will continue to perform Accu-checks for now as patient recently switched to Two Ant HN, but will likely be able to discontinue soon if BGLs remain stable on new formula. Prerenal azotemia: Resolved. BUN 20-->14. Cr normal. S/p IVF Continue to monitor renal function periodically. Decreased oral intake and dysphagia on initial presentation Speech therapy following intermittently. S/P barium swallow. Patient with severe dysphagia. GI consulted and PEG tube was placed. 01/31: Inventory Control Supervisor following. Due to vomiting tube feeding changed to low volume TwoCal HN @ 30ml/hr, increase 10ml Q 4hr, as tolerated to goal rate 50ml/hr. Free Water Flushes: 200ml Q 6hr or for Dual Kangaroo Pump, recommend 33ml free water/hr. Additional free water flush of 480ml w/1-pkt Maury bid (1-pkt Maury mixed w/240ml via g-tube bid) Neuro-Behcet, history of frontal lobe CVA, encephalopathy, history of meningitis , chronic No new changes on imaging. Patient followed by neurology. Aphasic at baseline. Neurology following the patient Continue Imuran, prednisone EEG shows mild to moderate slowing at times of various depending on the epoch, there was no epileptic activity seen Continue PT/OT Palliative care following the patient and is still indicating the patient is making his own decisions, full code and full aggressive measures [place] as needed for pain. Blurred vision/Diplopia: Related to his neuro Behet's syndrome. -Ophthalmology evaluated patient on 01/11/17. 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 Recommends immunosuppressants and steroids which patient is currently on. Sepsis, multiple episodes: Resolved. Coccyx decubitus wound: Wound culture with pseudo fluorescens/putida, group D enterococcus VRE which is sensitive to Zosyn. Patient did have one urine culture of Daphney parapsilosis, was treated with fluconazole for 10 days. Patient had episode of diarrhea, C. difficile cultures performed which was negative. Infectious disease consulted and last seen the patient on 10/18/16, at that time it was indicated to observe off antibiotics. 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 Would benefit from long-term steroids. Sinus tachycardia: Stable. S/p Lopressor TSH, free T3, free T4 were normal Melena, bright red blood in stool: Resolved Status post transfusion, emergently transferred to main hospital, emergent endoscopy GI evaluated and managed patient with emergent colonoscopy showing small ulcer in the colon Continue Prevacid Hemoglobin stable Hypotension: stable -Lopressor discontinued on 01/02. Hypernatremia and hyperchloremia: Resolved. Continue free water flushes 200 cc every 4 hours Coccyx decubitus: Wound care nurse is following the patient for management. Recommends continuing to change dressings with Santyl ointment and cleansing with normal saline only. Apply luis thick Santyl ointment to slightly moistened Maxorb II dressing loosely packed in wound bed and cover with bordered gauze, to be changed daily. Specialty bed Ankle ulcer: R lateral malleolus. -Foam boots. Wound care has evaluated; paint with skin prep or betadine and leave open to air. Depression: Patient was evaluated by psychiatrist. Continue Prozac 40 mg daily and Seroquel 25 mg HS. Constipation: No BM documented since 01/29, but nurse tells me that the patient had 2 BMs on 01/31. Patient on scheduled Senna. Has not utilized prn Miralax; advised to administer. Monitor and order more aggressive bowel regimen if ineffective. DVT Prophylaxis: Lovenox, TEDs/SCDs. Discharge Planning 01/27: export traffic department manager [facility] assistance plan to transfer patient there, awaiting return call. Problem Qualifiers (1) GI bleed: Qualified Code: K92.2 - Gastrointestinal hemorrhage, unspecified gastrointestinal hemorrhage type (2) UTI (urinary tract infection): Qualified Code: N30.00 - Acute cystitis without hematuria (3) Effusion of hip joint: Qualified Code: M25.459 - Effusion of hip joint, unspecified laterality Mari Talamantes Feb 02, 2017 10:28
[2017-02-02] MEDS: POLYETHYLENE GLYCOL 17 GM PKG PEG PRN (18:14)
[2017-02-02 20:00] VITALS: BP 109/93; PULSE 71; RESP 13; TEMP 95.9; O2SAT 95
[2017-02-02] MEDS: QUEtiapine FUMARATE 25 MG TAB PO SCH (20:42)
[2017-02-03] MEDS: azaTHIOprine 50 MG TAB PEG SCH ×2 (06:16→18:33)
[2017-02-03] MEDS: INSULIN ASPART SUPPLEMENTAL SCALE SQ SCH ×3 (06:17→16:00)
[2017-02-03 06:59] LABS: MAGNESIUM 2.1 MG/DL (1.5-2.5)
[2017-02-03 08:00] VITALS: BP 104/78; PULSE 90; RESP 22; TEMP 97.4; O2SAT 98
[2017-02-03] MEDS: LACTOBACILLUS ACIDOPHILUS TAB PEG SCH ×2 (08:55→21:59)
[2017-02-03] MEDS: predniSONE 20 MG TAB PEG SCH (08:55)
[2017-02-03] MEDS: FLUoxetine HCL LIQUID 20 MG/5 ML CUP PEG SCH (08:55)
[2017-02-03] MEDS: ENOXAPARIN SODIUM 40 MG/0.4 ML SYRINGE SQ SCH (08:55)
[2017-02-03] MEDS: LANSOPRAZOLE SOLUTAB 30 MG TAB PEG SCH ×2 (08:55→21:59)
[2017-02-03] MEDS: SENNOSIDES SYRUP 8.8 MG/5 ML CUP PEG SCH (08:56)
[2017-02-03] MEDS: LACTIC ACID (AMMONIUM LACTATE) 12% LOTION 225 GM BTL TOPICAL SCH ×2 (08:56→21:59)
[2017-02-03] MEDS: JUVEN POWDER 1 PACK G-TUBE SCH ×2 (08:57→21:00)
--- NOTE | 2017-02-03 12:59 | HHI.PR ---
Subjective Remarks Follow-up for neuro Behet's syndrome, sob. Patient states he is breathing better today. He denies any fevers or chills. Denies any abdominal pain. Objective Vitals Vital Signs Date Time Temp Pulse Resp B/P Pulse Ox O2 Delivery O2 Flow Rate FiO2 02/03/17 08:00 97.4 90 22 104/78 98 02/02/17 20:00 95.9 71 13 109/93 95 I/O 02/02/17 02/02/17 02/02/17 02/03/17 02/03/17 02/03/17 07:00 15:00 23:00 07:00 15:00 23:00 Intake Total 0 ml 760 ml 777 ml Output Total 450 ml 950 ml 1000 ml 750 ml Balance -450 ml -950 ml -240 ml 27 ml Intake Oral 0 ml IV Total 0 ml Tube Feeding 360 ml Tube Irrigant 357 ml Other 400 ml 420 ml Output Urine Total 450 ml 950 ml 1000 ml 750 ml # Bowel Movements 0 0 0 4 Result Diagram: 02/02/17 0640 02/03/17 0640 Objective Remarks GENERAL: Thin patient in no apparent distress. CARDIOVASCULAR: Tachycardic rate with regular rhythm. RESPIRATORY: Coarse breath sounds bilaterally, but no rales or wheezing. Improved from yesterday. GASTROINTESTINAL: Abdomen soft, non-tender, nondistended. Feeding tube present. NEUROLOGICAL: Awake and alert. Nods head to answer questions. 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 Afebrile. Oxygen saturation 98% on RA. Lung exam improved. -Recent chest x-ray on 01/31 normal. -Duonebs q4h as needed for wheezing/SOB. -Nursing to continue regular suctioning as needed. Hypokalemia with mild hypomagnesemia: Improved s/p repletion. K+ 3.6. Mg 2.1. SIRS: Improved. Acute 01/31/17. Temp 99.4 axillary followed by 99.2 axillary. WBC 20.2. Increasingly tachycardic. -Lactic acid normal. -Although aspiration had been suspected due to vomiting, chest x-ray is without evidence of pneumonia. -Nurse stated urine was malodorous yesterday but UA is without infection. -Blood cultures x 2 reveal No growth in 1 day. -Nurse states wound to coccyx appears healing, and R ankle wound appears without infection. -No increase in BMs. -02/02: Afebrile overnight. WBC improved to 10.0. No source of infection evident. Telemetry reviewed with no acute events, just tachycardia which is normal for patient; discontinue. Urinary retention: Stable. 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 -Kowalski ordered. -Monitor intake and output. 02/03: Had 2700 mL of urine output over the last 24 hours, but balance of -1163. Need to make sure patient does not get dehydrated. Renal function normal yesterday. -Patient will likely need to keep in place as he is non-ambulatory. Diabetes: stable HbA1c 6.6 on 09/25/16. 01/31: Resume Accu-checks and low dose SSI as patient's tube feeding now changed to non carbohydrate-controlled formula and random BGL 250 this afternoon even prior to starting new formula. 02/03: BGLs well controlled. Has not utilized SSI since 01/31; will discontinue. Change Accu-checks from qid to bid, and will soon discontinue these as well. Prerenal azotemia: Resolved. S/p IVF Continue to monitor renal function periodically. Decreased oral intake and dysphagia on initial presentation Speech therapy following intermittently. S/P barium swallow. Patient with severe dysphagia. GI consulted and PEG tube was placed. 01/31: Casino Gaming Worker following. Due to vomiting tube feeding changed to low volume TwoCal HN @ 30ml/hr, increase 10ml Q 4hr, as tolerated to goal rate 50ml/hr. Free Water Flushes: 200ml Q 6hr or for Dual Kangaroo Pump, recommend 33ml free water/hr. Additional free water flush of 480ml w/1-pkt Maury bid (1-pkt Maury mixed w/240ml via g-tube bid) Neuro-Behcet, history of frontal lobe CVA, encephalopathy, history of meningitis , chronic No new changes on imaging. Patient followed by neurology. Aphasic at baseline. Neurology following the patient Continue Imuran, prednisone EEG shows mild to moderate slowing at times of various depending on the epoch, there was no epileptic activity seen Continue PT/OT Palliative care following the patient and is still indicating the patient is making his own decisions, full code and full aggressive measures [place] as needed for pain. Blurred vision/Diplopia: Related to his neuro Behet's syndrome. -Ophthalmology evaluated patient on 01/11/17. 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 Recommends immunosuppressants and steroids which patient is currently on. Sepsis, multiple episodes: Resolved. Coccyx decubitus wound: Wound culture with pseudo fluorescens/putida, group D enterococcus VRE which is sensitive to Zosyn. Patient did have one urine culture of Daphney parapsilosis, was treated with fluconazole for 10 days. Patient had episode of diarrhea, C. difficile cultures performed which was negative. Infectious disease consulted and last seen the patient on 10/18/16, at that time it was indicated to observe off antibiotics. 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 Would benefit from long-term steroids. Sinus tachycardia: Stable. S/p Lopressor TSH, free T3, free T4 were normal Melena, bright red blood in stool: Resolved Status post transfusion, emergently transferred to [facility], emergent endoscopy GI evaluated and managed patient with emergent colonoscopy showing small ulcer in the colon Continue Prevacid Hemoglobin stable Hypotension: stable -Lopressor discontinued on 01/02. Hypernatremia and hyperchloremia: Resolved. Continue free water flushes 200 cc every 4 hours Coccyx decubitus: Wound care nurse is following the patient for management. Recommends continuing to change dressings with Santyl ointment and cleansing with normal saline only. Apply luis thick Santyl ointment to slightly moistened Maxorb II dressing loosely packed in wound bed and cover with bordered gauze, to be changed daily. Specialty bed Ankle ulcer: R lateral malleolus. -Foam boots. Wound care has evaluated; paint with skin prep or betadine and leave open to air. Depression: Patient was evaluated by psychiatrist. Continue Prozac 40 mg daily and Seroquel 25 mg HS. Constipation: Improved. Continue scheduled Senna and Miralax prn. DVT Prophylaxis: Lovenox, TEDs/SCDs. Discharge Planning 01/27: operating manager called [facility] following up on assistance plan to transfer patient there, awaiting return call. Problem Qualifiers (1) GI bleed: Qualified Code: K92.2 - Gastrointestinal hemorrhage, unspecified gastrointestinal hemorrhage type (2) UTI (urinary tract infection): Qualified Code: N30.00 - Acute cystitis without hematuria (3) Effusion of hip joint: Qualified Code: M25.459 - Effusion of hip joint, unspecified laterality Mari Talamantes Feb 03, 2017 12:59 Qualified Code: M25.459 - Effusion of hip joint, unspecified laterality Mari Talamantes Feb 03, 2017 12:59
--- NOTE | 2017-02-03 18:36 | PD.WCN.NOT ---
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 Communicated with: SHIRLENE Hudson 5th floor [facility] Recommendation: Please continue to cleanse wounds to R lateral malleolus and coccyx with normal saline and apply Maxorb AG just over wound beds cover with dry cover dressing and change every other day. Additional Information: Patient seen on 5th floor [facility] for follow up of stage 4 pressure injuries sacrum / coccyx wound and R lateral Malleolus wound. Patient positioned to L side for wound assessment with the assistance of chief writer to reveal Sacral/ Coccyx wound. SHIRLENE Hudson removed dressing prior to chief writer's arrival Wound presents with 100% beefy red granulation tissue. Wound has minimal sero-sanguinous drainage without odor. Wound margins are well defined. Scar tissue is noted to periwound that is otherwise unremarkable.Cleansed wound with normal saline.Wound measurements are as follows: 1.4cm x 0.6 cm x 0.5cm. Wound is noted without tunneling or undermining. Applied slightly moistened Maxorb extra AG to wound bed and covered with bordered gauze. Applied skin prep before applying adhesive dressing. Wound to R lateral malleolus is noted open to air. Cleansed wound with normal saline. Wound bed is noted with 90% beefy red granulation tissue and ~10% white tissue that appears to be tendon, indicating stage 4 pressure injury. Wound measures 1.7cmx 1.3cm x 0.3cm Periwound is unremarkable. Wound with moist wound bed and minimal serous drainage that is without odor. Cleansed wound with normal saline and applied slightly moistened Maxorb AG to wound bed and covered with dry cover dressing . Skin prep applied before applying adhesive dressing to skin. 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 Arleen Gibbs [facility] Feb 03, 2017 18:35
[2017-02-03 20:00] VITALS: BP 110/80; PULSE 68; RESP 20; TEMP 96.4; O2SAT 99
[2017-02-03] MEDS: QUEtiapine FUMARATE 25 MG TAB PO SCH (21:59)
[2017-02-04] MEDS: azaTHIOprine 50 MG TAB PEG SCH ×2 (06:18→17:21)
[2017-02-04 08:00] VITALS: BP 104/93; PULSE 81; RESP 20; TEMP 96.6; O2SAT 98
[2017-02-04] MEDS: LACTIC ACID (AMMONIUM LACTATE) 12% LOTION 225 GM BTL TOPICAL SCH ×2 (08:25→21:00)
[2017-02-04] MEDS: JUVEN POWDER 1 PACK G-TUBE SCH ×2 (08:25→21:00)
[2017-02-04] MEDS: LACTOBACILLUS ACIDOPHILUS TAB PEG SCH ×2 (08:27→21:07)
[2017-02-04] MEDS: predniSONE 20 MG TAB PEG SCH (08:27)
[2017-02-04] MEDS: FLUoxetine HCL LIQUID 20 MG/5 ML CUP PEG SCH (08:27)
[2017-02-04] MEDS: LANSOPRAZOLE SOLUTAB 30 MG TAB PEG SCH ×2 (08:27→21:07)
[2017-02-04] MEDS: SENNOSIDES SYRUP 8.8 MG/5 ML CUP PEG SCH (08:27)
[2017-02-04] MEDS: ENOXAPARIN SODIUM 40 MG/0.4 ML SYRINGE SQ SCH (08:27)
--- NOTE | 2017-02-04 12:22 | HHI.PR ---
Subjective Remarks Follow-up for neuro Behet's syndrome. Patient states he is breathing better. Objective Vitals Vital Signs Date Time Temp Pulse Resp B/P Pulse Ox O2 Delivery O2 Flow Rate FiO2 02/04/17 08:00 96.6 81 20 104/93 98 02/03/17 20:00 96.4 68 20 110/80 99 I/O 02/03/17 02/03/17 02/03/17 02/04/17 02/04/17 02/04/17 07:00 15:00 23:00 07:00 15:00 23:00 Intake Total 777 ml 0 ml 0 ml 440 ml Output Total 750 ml 425 ml 1250 ml Balance 27 ml -425 ml -1250 ml 440 ml Intake Oral 0 ml 0 ml IV Total 0 ml Tube Irrigant 357 ml Other 420 ml 440 ml Output Urine Total 750 ml 425 ml 1250 ml # Bowel Movements 4 1 Result Diagram: 02/02/17 0640 02/03/17 0640 Objective Remarks GENERAL: Thin patient in no apparent distress. CARDIOVASCULAR: Regular rate and rhythm. RESPIRATORY: Coarse breath sounds; snorting upper respiratory sounds. GASTROINTESTINAL: Abdomen soft, non-tender, nondistended. Feeding tube present. NEUROLOGICAL: Awake and alert. Nods head to answer questions. 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 Afebrile. Oxygen saturation 98% on RA. Lung exam improved. -Recent chest x-ray on 01/31 normal. -Duonebs q4h as needed for wheezing/SOB. -Nursing to continue regular suctioning as needed. Hypokalemia with mild hypomagnesemia: Improved s/p repletion. K+ 3.6. Mg 2.1. SIRS: Improved. Acute 01/31/17. Temp 99.4 axillary followed by 99.2 axillary. WBC 20.2. Increasingly tachycardic. -Lactic acid normal. -Although aspiration had been suspected due to vomiting, chest x-ray is without evidence of pneumonia. -Nurse stated urine was malodorous yesterday but UA is without infection. -Blood cultures x 2 reveal No growth in 1 day. -Nurse states wound to coccyx appears healing, and R ankle wound appears without infection. -No increase in BMs. -02/02: Afebrile overnight. WBC improved to 10.0. No source of infection evident. Telemetry reviewed with no acute events, just tachycardia which is normal for patient; discontinue. Urinary retention: Stable. 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 -Monitor intake and output. Good urine output documented. -Patient will likely need to keep Kowalski in place as he is non-ambulatory. Diabetes: stable HbA1c 6.6 on 09/25/16. Accu-checks ACHS and low dose SSI resumed as patient's tube feeding was changed to non carbohydrate-controlled formula. SSI was discontinued as not being utilized. Accu-checks were changed to bid. 02/04: BGL normal but on the lower side at 77 this morning. Continue to monitor. Prerenal azotemia: Resolved. S/p IVF Continue to monitor renal function periodically. Decreased oral intake and dysphagia on initial presentation Speech therapy following intermittently. S/P barium swallow. Patient with severe dysphagia. GI consulted and PEG tube was placed. 01/31: Wireless Development Manager following. Due to vomiting tube feeding changed to low volume TwoCal HN @ 30ml/hr, increase 10ml Q 4hr, as tolerated to goal rate 50ml/hr. Free Water Flushes: 200ml Q 6hr or for Dual Kangaroo Pump, recommend 33ml free water/hr. Additional free water flush of 480ml w/1-pkt Maury bid (1-pkt Maury mixed w/240ml via g-tube bid) Neuro-Behcet, history of frontal lobe CVA, encephalopathy, history of meningitis , chronic No new changes on imaging. Patient followed by neurology. Aphasic at baseline. Neurology following the patient Continue Imuran, prednisone EEG shows mild to moderate slowing at times of various depending on the epoch, there was no epileptic activity seen Continue PT/OT Palliative care following the patient and is still indicating the patient is making his own decisions, full code and full aggressive measures [place] as needed for pain. Blurred vision/Diplopia: Related to his neuro Behet's syndrome. -Ophthalmology evaluated patient on 01/11/17. 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 Recommends immunosuppressants and steroids which patient is currently on. Sepsis, multiple episodes: Resolved. Coccyx decubitus wound: Wound culture with pseudo fluorescens/putida, group D enterococcus VRE which is sensitive to Zosyn. Patient did have one urine culture of Daphney parapsilosis, was treated with fluconazole for 10 days. Patient had episode of diarrhea, C. difficile cultures performed which was negative. Infectious disease consulted and last seen the patient on 10/18/16, at that time it was indicated to observe off antibiotics. 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 Would benefit from long-term steroids. Sinus tachycardia: Stable. S/p Lopressor TSH, free T3, free T4 were normal Melena, bright red blood in stool: Resolved Status post transfusion, emergently transferred to [facility], emergent endoscopy GI evaluated and managed patient with emergent colonoscopy showing small ulcer in the colon Continue Prevacid Hemoglobin stable Hypotension: stable -Lopressor discontinued on 01/02. Hypernatremia and hyperchloremia: Resolved. Continue free water flushes 200 cc every 4 hours Coccyx decubitus: Wound care nurse is following the patient for management. Recommends continuing to change dressings with Santyl ointment and cleansing with normal saline only. Apply luis thick Santyl ointment to slightly moistened Maxorb II dressing loosely packed in wound bed and cover with bordered gauze, to be changed daily. Specialty bed Ankle ulcer: R lateral malleolus. -Foam boots. Wound care has evaluated; paint with skin prep or betadine and leave open to air. Depression: Patient was evaluated by psychiatrist. Continue Prozac 40 mg daily and Seroquel 25 mg HS. Constipation: Improved. Continue scheduled Senna and Miralax prn. DVT Prophylaxis: Lovenox, TEDs/SCDs. Discharge Planning 01/27: analytic manager called [facility] following up on assistance plan to transfer patient there, awaiting return call. Problem Qualifiers (1) GI bleed: Qualified Code: K92.2 - Gastrointestinal hemorrhage, unspecified gastrointestinal hemorrhage type (2) UTI (urinary tract infection): Qualified Code: N30.00 - Acute cystitis without hematuria (3) Effusion of hip joint: Qualified Code: M25.459 - Effusion of hip joint, unspecified laterality Mari Talamantes Feb 04, 2017 12:22
[2017-02-04] MEDS: RESP: ALBUTEROL 2.5 MG/IPRATROPIUM 0.5 MG NEB (PRN) NEB ×2 (15:47→21:27)
[2017-02-04 16:46] VITALS: BP 130/86; PULSE 108; RESP 19; TEMP 97.4; O2SAT 97
[2017-02-04 20:00] VITALS: BP 128/96; PULSE 100; RESP 20; TEMP 97.2; O2SAT 98
[2017-02-04] MEDS: INSULIN ASPART SUPPLEMENTAL SCALE SQ SCH (21:00)
[2017-02-04] MEDS: QUEtiapine FUMARATE 25 MG TAB PO SCH (21:07)
[2017-02-04] MEDS: ACETAMINOPHEN/HYDROcodone 325 MG/5 MG TAB PEG PRN (21:07)
[2017-02-04 21:27] VITALS: O2SAT 95
--- NOTE | 2017-02-04 23:31 | RADRPT ---
EXAM DATE/TIME: 02/04/2017 23:21 [place] COMPARISON: CHEST SINGLE AP, January 31, 2017, 17:17. INDICATIONS : Congestion. MEDICAL HISTORY : Stroke. Cardiovascular disease. SURGICAL HISTORY : None. ENCOUNTER: Subsequent ACUITY: 4 - 6 months PAIN SCORE: Non-responsive. LOCATION: Bilateral chest FINDINGS: A single view of the chest demonstrates minimal bibasilar densities greater right lower lobe. Heart n ormal size. The cardiomediastinal contours are unremarkable. Osseous structures are intact. CONCLUSION: Minimal bibasilar densities greater right lower lobe. Gen Potter MD on February 04, 2017 at 23:29 Board Certified Radiologist. This report was verified electronically.
[2017-02-05] MEDS: RESP: ALBUTEROL 2.5 MG/IPRATROPIUM 0.5 MG NEB (SCH) NEB ×4 (03:33→21:33)
[2017-02-05] MEDS: azaTHIOprine 50 MG TAB PEG SCH ×2 (06:17→15:08)
[2017-02-05 06:26] LABS: AUTOMATED NEUTROPHIL # 6.3 TH/MM3 (1.8-7.7); BASOPHIL % 0.5 % (0.0-2.0); EOSINOPHIL % 0.4 % (0.0-4.0); HEMATOCRIT 37.5 % (39.0-51.0); HEMOGLOBIN 11.9 GM/DL (13.0-17.0); LYMPH % 20.6 % (9.0-44.0); LYMPHOCYTE # 1.8 TH/MM3 (1.0-4.8); MEAN CELL VOLUME 90.8 FL (80.0-100.0); MEAN CORPUSCULAR HEMOGLOBIN 28.9 PG (27.0-34.0); MEAN CORPUSCULAR HGB CONC 31.9 % (32.0-36.0); MEAN PLATELET VOLUME 7.9 FL (7.0-11.0); MONO % 5.9 % (0.0-8.0); MONOCYTE # 0.5 TH/MM3 (0-0.9); NEUT % 72.6 % (16.0-70.0); PLATELET COUNT 347 TH/MM3 (150-450); RED BLOOD COUNT 4.13 MIL/MM3 (4.50-5.90); RED CELL DISTRIBUTION WIDTH 14.4 % (11.6-17.2); WHITE BLOOD COUNT 8.6 TH/MM3 (4.0-11.0)
[2017-02-05 06:40] LABS: CALCIUM 9.2 MG/DL (8.5-10.1)
[2017-02-05 06:44] LABS: CREATININE 0.57 MG/DL (0.60-1.30)
[2017-02-05] MEDS: INSULIN ASPART SUPPLEMENTAL SCALE SQ SCH ×4 (07:00→21:00)
[2017-02-05] MEDS: LACTOBACILLUS ACIDOPHILUS TAB PEG SCH ×2 (07:55→21:59)
[2017-02-05] MEDS: SENNOSIDES SYRUP 8.8 MG/5 ML CUP PEG SCH (07:55)
[2017-02-05] MEDS: ENOXAPARIN SODIUM 40 MG/0.4 ML SYRINGE SQ SCH (07:55)
[2017-02-05] MEDS: LANSOPRAZOLE SOLUTAB 30 MG TAB PEG SCH ×2 (07:56→21:59)
[2017-02-05] MEDS: FLUoxetine HCL LIQUID 20 MG/5 ML CUP PEG SCH (07:56)
[2017-02-05] MEDS: predniSONE 20 MG TAB PEG SCH (07:56)
[2017-02-05] MEDS: LACTIC ACID (AMMONIUM LACTATE) 12% LOTION 225 GM BTL TOPICAL SCH ×2 (07:57→21:59)
[2017-02-05] MEDS: JUVEN POWDER 1 PACK G-TUBE SCH ×2 (07:57→21:00)
[2017-02-05 08:00] VITALS: BP 111/88; PULSE 96; RESP 20; TEMP 97.7; O2SAT 97
--- NOTE | 2017-02-05 10:18 | HHI.PR ---
Subjective Remarks Follow-up for neuro Behet's syndrome. Nurse states that per night nurse jose Pilo almost had to be called because of patient's difficulty breathing. Tube feeding was stopped as apparently he sounded wet with it running. Night RAIL SWITCHMAN was called who ordered labs and chest x-ray which shows minimal bibasilar densities greater in the RLL. He was started on Vancomycin and Cefepime and sputum culture was ordered. The nurse states there was no report of vomiting. Patient denies fevers or chills, shortness of breath, abdominal pain, or vomiting. Objective Vitals Vital Signs Date Time Temp Pulse Resp B/P Pulse Ox O2 Delivery O2 Flow Rate FiO2 02/05/17 08:00 97.7 96 20 111/88 97 02/04/17 21:27 95 21 02/04/17 20:00 97.2 100 20 128/96 98 02/04/17 16:46 97.4 108 19 130/86 97 I/O 02/04/17 02/04/17 02/04/17 02/05/17 02/05/17 02/05/17 07:00 15:00 23:00 07:00 15:00 23:00 Intake Total 0 ml 440 ml 503 ml 0 ml Output Total 1250 ml 400 ml 600 ml Balance -1250 ml 440 ml 103 ml -600 ml Intake Oral 0 ml 0 ml 0 ml Tube Feeding 303 ml Other 440 ml 200 ml Output Urine Total 1250 ml 400 ml 600 ml # Bowel Movements 1 1 Result Diagram: 02/05/17 0611 02/05/17 0611 Imaging Chest X-Ray 02/04/17 Impressions: Service Date/Time: Saturday, February 04, 2017 23:21 - CONCLUSION: Minimal bibasilar densities greater right lower lobe. Objective Remarks GENERAL: Thin patient in no apparent distress. CARDIOVASCULAR: Tachycardic at 100 bpm with regular rhythm. RESPIRATORY: Coarse breath sounds; snorting upper respiratory sounds. No rales or wheezing. GASTROINTESTINAL: Abdomen soft, non-tender, nondistended. Feeding tube present. NEUROLOGICAL: Awake and alert. Nods head to answer questions. 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 (3) Sepsis ICD Code: A41.9 Status: Resolved (4) Encephalopathy ICD Code: G93.40 Status: Resolved (5) GI bleed ICD Code: K92.2 Status: Resolved (6) HCAP (healthcare-associated pneumonia) ICD Code: J18.9 Status: Resolved (7) UTI (urinary tract infection) ICD Code: N39.0 Status: Resolved (8) Leucocytosis ICD Code: D72.829 Status: Resolved (9) Fever ICD Code: R50.9 Status: Resolved (10) Effusion of hip joint ICD Code: M25.459 Status: Acute (11) Xeroderma ICD Code: Q80.9 Status: Acute (12) Blurred vision, bilateral ICD Code: H53.8 Status: Acute Assessment and Plan Hospital acquired pneumonia: Acute. -Nurse called me yesterday afternoon stating patient had deep suctioning by RT and was coughing up a lot of green sputum. Patient was given a Duoneb. Vitals were rechecked subsequently and patient was afebrile with good oxygen saturation. -Apparently last night patient had worsening lung exam and difficulty breathing and passenger car upholsterer apprentice was called. Chest x-ray shows minimal bibasilar densities worse over the RLL and patient was started on Vancomycin and Cefepime. Chest x-ray was personally interpreted by myself and Dr. Garrett and compared to prior on 01/31. There is mild worsening over the lateral RLL, but otherwise previous x-ray looks similar. -This morning patient is clinically stable. Breath sounds are coarse which is his norm but without rales. He remains afebrile with O2 saturation of 97% on RA. Tachycardic at 100 bpm but this is chronic. -CBC reviewed with normal WBC count and only minimal elevation in neutrophil count. Lactic acid is normal. -Vancomycin and Cefepime discontinued and patient started on Levaquin 750 mg IV x 7 days. -Suctioning q6h ordered with assistance from RT as needed. -Continue Duonebs q6h scheduled with q4h as needed. -Monitor vital q4h. -Repeat am CBC with diff just to recheck to make sure there is no lag behind -No indication that patient aspirated as no vomiting reported. Tube feeding can be resumed. Urinary retention: Stable. 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 -Monitor intake and output. Normal urine output documented. -Patient will likely need to keep Kowalski in place as he is non-ambulatory. Diabetes: Stable HbA1c 6.6 on 09/25/16. Accu-checks and SSI initially resumed as patient's tube feeding was changed to non carbohydrate-controlled formula. SSI was discontinued as not being utilized. Accu-checks were changed to bid. 02/04: Nurse informed me BGL is 186 this afternoon. Accu-checks switched back to ACHS and low dose SSI added back on. 02/05: BGLs wnl today thus far without SSI administration. Neuro-Behcet, history of frontal lobe CVA, encephalopathy, history of meningitis , chronic No new changes on imaging. Patient followed by neurology. Aphasic at baseline. Neurology following the patient Continue Imuran, prednisone EEG shows mild to moderate slowing at times of various depending on the epoch, there was no epileptic activity seen Continue PT/OT Palliative care following the patient and is still indicating the patient is making his own decisions, full code and full aggressive measures [place] as needed for pain. Blurred vision/Diplopia: Related to his neuro Behet's syndrome. -Ophthalmology evaluated patient on 01/11/17. 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 Recommends immunosuppressants and steroids which patient is currently on. SIRS: Improved. Acute 01/31/17. Temp 99.4 axillary followed by 99.2 axillary. WBC 20.2. Increasingly tachycardic. -Lactic acid normal. -Although aspiration had been suspected due to vomiting, chest x-ray is without evidence of pneumonia. -Nurse stated urine was malodorous yesterday but UA is without infection. -Blood cultures x 2 reveal No growth in 1 day. -Nurse states wound to coccyx appears healing, and R ankle wound appears without infection. -No increase in BMs. -No source of infection evident. Sepsis, multiple episodes: Resolved. Coccyx decubitus wound: Wound culture with pseudo fluorescens/putida, group D enterococcus VRE which is sensitive to Zosyn. Patient did have one urine culture of Daphney parapsilosis, was treated with fluconazole for 10 days. Patient had episode of diarrhea, C. difficile cultures performed which was negative. Infectious disease consulted and last seen the patient on 10/18/16, at that time it was indicated to observe off antibiotics. 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 Would benefit from long-term steroids. Sinus tachycardia: Stable. S/p Lopressor TSH, free T3, free T4 were normal Melena, bright red blood in stool: Resolved Status post transfusion, emergently transferred to main hospital, emergent endoscopy GI evaluated and managed patient with emergent colonoscopy showing small ulcer in the colon Continue Prevacid Hemoglobin stable Hypotension: stable -Lopressor discontinued on 01/02. Prerenal azotemia: Resolved. S/p IVF Continue to monitor renal function periodically. Hypernatremia and hyperchloremia: Resolved. Continue free water flushes 200 cc every 4 hours Hypokalemia with mild hypomagnesemia: Improved s/p repletion. Decreased oral intake and dysphagia on initial presentation Speech therapy following intermittently. S/P barium swallow. Patient with severe dysphagia. GI consulted and PEG tube was placed. 01/31: Analytical Lead following. Due to vomiting tube feeding changed to low volume TwoCal HN @ 30ml/hr, increase 10ml Q 4hr, as tolerated to goal rate 50ml/hr. Free Water Flushes: 200ml Q 6hr or for Dual Kangaroo Pump, recommend 33ml free water/hr. Additional free water flush of 480ml w/1-pkt Maury bid (1-pkt Maury mixed w/240ml via g-tube bid) Coccyx decubitus: Wound care nurse is following the patient for management. Recommends continuing to change dressings with Santyl ointment and cleansing with normal saline only. Apply luis thick Santyl ointment to slightly moistened Maxorb II dressing loosely packed in wound bed and cover with bordered gauze, to be changed daily. Specialty bed Ankle ulcer: R lateral malleolus. -Foam boots. Wound care has evaluated; paint with skin prep or betadine and leave open to air. Depression: Patient was evaluated by psychiatrist. Continue Prozac 40 mg daily and Seroquel 25 mg HS. Constipation: Improved. Continue scheduled Senna and Miralax prn. DVT Prophylaxis: Lovenox, TEDs/SCDs. Patient management discussed with Dr. Garrett, attending. Discharge Planning 01/27: ancillary services manager therapy called [facility] following up on assistance plan to transfer patient there, awaiting return call. Problem Qualifiers (1) GI bleed: Qualified Code: K92.2 - Gastrointestinal hemorrhage, unspecified gastrointestinal hemorrhage type (2) UTI (urinary tract infection): Qualified Code: N30.00 - Acute cystitis without hematuria (3) Effusion of hip joint: Qualified Code: M25.459 - Effusion of hip joint, unspecified laterality Mari Talamantes Feb 05, 2017 10:18
[2017-02-05 10:23] VITALS: O2SAT 94
[2017-02-05 12:00] VITALS: BP 107/83; PULSE 88; RESP 20; TEMP 97.8; O2SAT 95
[2017-02-05] MEDS: LEVOFLOXACIN 750 MG PREMIX INJ 150 ML IV SCH (12:01)
[2017-02-05 15:35] VITALS: O2SAT 98
[2017-02-05 20:00] VITALS: BP 94/79; PULSE 97; RESP 18; TEMP 96.1; O2SAT 99
[2017-02-05 21:34] VITALS: O2SAT 94
[2017-02-05] MEDS: QUEtiapine FUMARATE 25 MG TAB PO SCH (21:59)
[2017-02-06] MEDS: RESP: ALBUTEROL 2.5 MG/IPRATROPIUM 0.5 MG NEB (SCH) NEB ×4 (03:26→20:58)
[2017-02-06] MEDS: azaTHIOprine 50 MG TAB PEG SCH ×2 (05:59→17:41)
[2017-02-06] MEDS: INSULIN ASPART SUPPLEMENTAL SCALE SQ SCH ×2 (06:01→11:00)
[2017-02-06 08:00] VITALS: BP 105/77; PULSE 88; RESP 18; TEMP 97.7; O2SAT 97
[2017-02-06 08:09] LABS: BASOPHIL # 0.1 TH/MM3 (0-0.2); BASOPHIL % 0.7 % (0.0-2.0); EOSINOPHIL % 0.5 % (0.0-4.0); HEMATOCRIT 36.8 % (39.0-51.0); LYMPH % 21.5 % (9.0-44.0); LYMPHOCYTE # 2.1 TH/MM3 (1.0-4.8); MEAN CELL VOLUME 90.4 FL (80.0-100.0); MEAN CORPUSCULAR HEMOGLOBIN 29.6 PG (27.0-34.0); MEAN CORPUSCULAR HGB CONC 32.7 % (32.0-36.0); MEAN PLATELET VOLUME 8.1 FL (7.0-11.0); MONO % 3.9 % (0.0-8.0); MONOCYTE # 0.4 TH/MM3 (0-0.9); NEUT % 73.4 % (16.0-70.0); PLATELET COUNT 428 TH/MM3 (150-450); RED BLOOD COUNT 4.07 MIL/MM3 (4.50-5.90); RED CELL DISTRIBUTION WIDTH 14.4 % (11.6-17.2); WHITE BLOOD COUNT 9.6 TH/MM3 (4.0-11.0)
[2017-02-06 08:59] VITALS: O2SAT 98
[2017-02-06] MEDS: LACTIC ACID (AMMONIUM LACTATE) 12% LOTION 225 GM BTL TOPICAL SCH ×2 (09:00→21:20)
[2017-02-06] MEDS: SENNOSIDES SYRUP 8.8 MG/5 ML CUP PEG SCH (09:00)
[2017-02-06] MEDS: JUVEN POWDER 1 PACK G-TUBE SCH ×2 (09:00→21:00)
[2017-02-06] MEDS: LACTOBACILLUS ACIDOPHILUS TAB PEG SCH ×2 (09:13→21:18)
[2017-02-06] MEDS: FLUoxetine HCL LIQUID 20 MG/5 ML CUP PEG SCH (09:13)
[2017-02-06] MEDS: predniSONE 20 MG TAB PEG SCH (09:13)
[2017-02-06] MEDS: LANSOPRAZOLE SOLUTAB 30 MG TAB PEG SCH ×2 (09:13→21:18)
[2017-02-06] MEDS: ENOXAPARIN SODIUM 40 MG/0.4 ML SYRINGE SQ SCH (09:13)
--- NOTE | 2017-02-06 10:22 | HHI.PR ---
Subjective Remarks Follow-up for neuro Behet's syndrome, pneumonia. The nurse tells me that the patient again had difficulty breathing last night. The patient admits to a cough but denies any shortness of breath today or last night. He denies any pain including abdominal pain. Denies any fevers or chills. Objective Vitals Vital Signs Date Time Temp Pulse Resp B/P Pulse Ox O2 Delivery O2 Flow Rate FiO2 02/06/17 08:59 98 21 02/06/17 08:00 97.7 88 18 105/77 97 02/05/17 21:34 94 21 02/05/17 20:00 96.1 97 18 94/79 99 02/05/17 15:35 98 21 02/05/17 12:00 97.8 88 20 107/83 95 02/05/17 10:23 94 21 I/O 02/05/17 02/05/17 02/05/17 02/06/17 02/06/17 02/06/17 07:00 15:00 23:00 07:00 15:00 23:00 Intake Total 0 ml 700 ml 530 ml Output Total 600 ml 950 ml Balance -600 ml -250 ml 530 ml Intake Oral 0 ml Tube Feeding 300 ml 330 ml Tube Irrigant 400 ml Other 200 ml Output Urine Total 600 ml 950 ml # Bowel Movements 1 1 Result Diagram: 02/06/17 0750 02/05/17 0611 Objective Remarks GENERAL: Thin patient in no apparent distress. CARDIOVASCULAR: Tachycardic at 100 bpm with regular rhythm. RESPIRATORY: Transmitted grunting sounds from upper airway. No rales or wheezing. GASTROINTESTINAL: Abdomen soft, non-tender, nondistended. Feeding tube present. NEUROLOGICAL: Awake and alert. Nods head to answer questions. 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 (3) Sepsis ICD Code: A41.9 Status: Resolved (4) Encephalopathy ICD Code: G93.40 Status: Resolved (5) GI bleed ICD Code: K92.2 Status: Resolved (6) HCAP (healthcare-associated pneumonia) ICD Code: J18.9 Status: Resolved (7) UTI (urinary tract infection) ICD Code: N39.0 Status: Resolved (8) Leucocytosis ICD Code: D72.829 Status: Resolved (9) Fever ICD Code: R50.9 Status: Resolved (10) Effusion of hip joint ICD Code: M25.459 Status: Acute (11) Xeroderma ICD Code: Q80.9 Status: Acute (12) Blurred vision, bilateral ICD Code: H53.8 Status: Acute Assessment and Plan Hospital acquired pneumonia: Stable -Chest x-ray reviewed and compared to prior on 01/31. There is mild worsening over the lateral RLL. -Continue Levaquin 750 mg IV x 7 days. -Suctioning q6h ordered with assistance from RT as needed. -Continue Duonebs q6h scheduled with q4h as needed. -Monitor vital q4h. -02/06: Again report of worsening overnight but patient appears stable this morning. Afebrile with 98% O2 saturation on RA. CBC today with normal WBC count. Urinary retention: Stable. 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 -Monitor intake and output. Normal urine output documented. -Patient will likely need to keep Kowalski in place as he is non-ambulatory. Diabetes: Stable HbA1c 6.6 on 09/25/16. Accu-checks and SSI initially resumed as patient's tube feeding was changed to non carbohydrate-controlled formula. SSI was discontinued as not being utilized. Accu-checks were changed to bid. 02/04: Nurse informed me BGL is 186 this afternoon. Accu-checks switched back to ACHS and low dose SSI added back on. 02/06: BGLs have remained good since morning of 02/05. No SSI needed. Will discontinue both. Neuro-Behcet, history of frontal lobe CVA, encephalopathy, history of meningitis , chronic No new changes on imaging. Patient followed by neurology. Aphasic at baseline. Neurology following the patient Continue Imuran, prednisone EEG shows mild to moderate slowing at times of various depending on the epoch, there was no epileptic activity seen Continue PT/OT Palliative care following the patient and is still indicating the patient is making his own decisions, full code and full aggressive measures [place] as needed for pain. Blurred vision/Diplopia: Related to his neuro Behet's syndrome. -Ophthalmology evaluated patient on 01/11/17. 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 Recommends immunosuppressants and steroids which patient is currently on. SIRS: Improved. Acute 01/31/17. Temp 99.4 axillary followed by 99.2 axillary. WBC 20.2. Increasingly tachycardic. -Lactic acid normal. -Although aspiration had been suspected due to vomiting, chest x-ray is without evidence of pneumonia. -Nurse stated urine was malodorous yesterday but UA is without infection. -Blood cultures x 2 reveal No growth in 1 day. -Nurse states wound to coccyx appears healing, and R ankle wound appears without infection. -No increase in BMs. -No source of infection evident. Sepsis, multiple episodes: Resolved. Coccyx decubitus wound: Wound culture with pseudo fluorescens/putida, group D enterococcus VRE which is sensitive to Zosyn. Patient did have one urine culture of Daphney parapsilosis, was treated with fluconazole for 10 days. Patient had episode of diarrhea, C. difficile cultures performed which was negative. Infectious disease consulted and last seen the patient on 10/18/16, at that time it was indicated to observe off antibiotics. 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 Would benefit from long-term steroids. Sinus tachycardia: Stable. S/p Lopressor TSH, free T3, free T4 were normal Melena, bright red blood in stool: Resolved Status post transfusion, emergently transferred to [facility] hospital, emergent endoscopy GI evaluated and managed patient with emergent colonoscopy showing small ulcer in the colon Continue Prevacid Hemoglobin stable Hypotension: stable -Lopressor discontinued on 01/02. Prerenal azotemia: Resolved. S/p IVF Continue to monitor renal function periodically. Hypernatremia and hyperchloremia: Resolved. Continue free water flushes 200 cc every 4 hours Hypokalemia with mild hypomagnesemia: Improved s/p repletion. Decreased oral intake and dysphagia on initial presentation Speech therapy following intermittently. S/P barium swallow. Patient with severe dysphagia. GI consulted and PEG tube was placed. 01/31: Pet Sitting following. Due to vomiting tube feeding changed to low volume TwoCal HN @ 30ml/hr, increase 10ml Q 4hr, as tolerated to goal rate 50ml/hr. Free Water Flushes: 200ml Q 6hr or for Dual Kangaroo Pump, recommend 33ml free water/hr. Additional free water flush of 480ml w/1-pkt Maury bid (1-pkt Maury mixed w/240ml via g-tube bid). Coccyx decubitus: Wound care nurse is following the patient for management. Recommends continuing to change dressings with Santyl ointment and cleansing with normal saline only. Apply luis thick Santyl ointment to slightly moistened Maxorb II dressing loosely packed in wound bed and cover with bordered gauze, to be changed daily. Specialty bed Ankle ulcer: R lateral malleolus. -Foam boots. Wound care has evaluated; paint with skin prep or betadine and leave open to air. Depression: Patient was evaluated by psychiatrist. Continue Prozac 40 mg daily and Seroquel 25 mg HS. Constipation: Improved. Continue scheduled Senna and Miralax prn. DVT Prophylaxis: Lovenox, TEDs/SCDs. Discharge Planning 01/27: assistant kitchen manager called [facility] following up on assistance plan to transfer patient there, awaiting return call. Problem Qualifiers (1) GI bleed: Qualified Code: K92.2 - Gastrointestinal hemorrhage, unspecified gastrointestinal hemorrhage type (2) UTI (urinary tract infection): Qualified Code: N30.00 - Acute cystitis without hematuria (3) Effusion of hip joint: Qualified Code: M25.459 - Effusion of hip joint, unspecified laterality Mari Talamantes Feb 06, 2017 10:22 Qualified Code: N30.00 - Acute cystitis without hematuria (3) Effusion of hip joint: Qualified Code: M25.459 - Effusion of hip joint, unspecified laterality Mari Talamantes Feb 06, 2017 10:22
[2017-02-06] MEDS: LEVOFLOXACIN 750 MG PREMIX INJ 150 ML IV SCH (11:10)
[2017-02-06 14:36] VITALS: BP 113/76; PULSE 99; RESP 20; TEMP 99.6; O2SAT 98
[2017-02-06] MEDS: HYOSCYAMINE SOLN 0.125 MG/ML 15 ML BTL PEG PRN (15:10)
[2017-02-06 20:00] VITALS: BP 107/78; PULSE 91; RESP 18; TEMP 98.6; O2SAT 97
[2017-02-06 21:00] VITALS: O2SAT 95
[2017-02-06] MEDS: QUEtiapine FUMARATE 25 MG TAB PO SCH (21:18)
[2017-02-07] MEDS: RESP: ALBUTEROL 2.5 MG/IPRATROPIUM 0.5 MG NEB (SCH) NEB ×4 (02:29→21:23)
[2017-02-07] MEDS: azaTHIOprine 50 MG TAB PEG SCH ×2 (06:07→18:00)
[2017-02-07] MEDS: JUVEN POWDER 1 PACK G-TUBE SCH ×2 (09:00→20:29)
[2017-02-07] MEDS: SENNOSIDES SYRUP 8.8 MG/5 ML CUP PEG SCH (09:00)
[2017-02-07 09:09] VITALS: BP 106/78; PULSE 90; RESP 20; TEMP 99.1; O2SAT 95
[2017-02-07] MEDS: LACTOBACILLUS ACIDOPHILUS TAB PEG SCH ×2 (09:57→20:29)
[2017-02-07] MEDS: FLUoxetine HCL LIQUID 20 MG/5 ML CUP PEG SCH (09:57)
[2017-02-07] MEDS: predniSONE 20 MG TAB PEG SCH (09:57)
[2017-02-07] MEDS: ENOXAPARIN SODIUM 40 MG/0.4 ML SYRINGE SQ SCH (09:57)
[2017-02-07] MEDS: LANSOPRAZOLE SOLUTAB 30 MG TAB PEG SCH ×2 (09:57→20:29)
[2017-02-07] MEDS: LACTIC ACID (AMMONIUM LACTATE) 12% LOTION 225 GM BTL TOPICAL SCH ×2 (09:58→20:30)
[2017-02-07 10:10] VITALS: O2SAT 95
[2017-02-07] MEDS: LEVOFLOXACIN 750 MG PREMIX INJ 150 ML IV SCH (10:53)
--- NOTE | 2017-02-07 15:05 | HHI.PR ---
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 Patient lying in bed comfortable. Denies any shortness of breath, breathing issues, does not indicate any new complaints. Discussed with respiratory therapist to feels that patient may need to have Mucomyst/normal saline nebulizer Objective Vitals Vital Signs Date Time Temp Pulse Resp B/P Pulse Ox O2 Delivery O2 Flow Rate FiO2 02/07/17 10:10 95 02/07/17 09:09 99.1 90 20 106/78 95 02/06/17 21:00 95 21 02/06/17 20:00 98.6 91 18 107/78 97 I/O 02/06/17 02/06/17 02/06/17 02/07/17 02/07/17 02/07/17 07:00 15:00 23:00 07:00 15:00 23:00 Intake Total 530 ml 868 ml 887 ml Output Total 900 ml 850 ml Balance 530 ml -32 ml 37 ml Intake Oral 0 ml Tube Feeding 330 ml 268 ml 367 ml Tube Irrigant 400 ml Other 200 ml 200 ml 520 ml Output Urine Total 900 ml 850 ml # Bowel Movements 1 1 Result Diagram: 02/06/17 0750 02/05/17 0611 Objective Remarks GENERAL: Well-developed, cachectic and contracted. HEENT: Head is normocephalic without any lesions or masses noted. Facial features are symmetric. Eyes: Extraocular muscles are intact. Conjunctivae were clear. NECK: Trachea midline no deviation. CARDIAC: Regular rhythm, tachycardia noted. S1/S2 are heard. No murmurs gallops or rubs. LUNGS: Clear to auscultation bilaterally. No wheeze, rhonchi or rales. No use of accessory muscles on inspiration or expiration. ABDOMEN: Soft, nontender. Nondistended. Bowel sounds heard in all 4 quadrants. No organomegaly or masses. Negative rebound, negative guarding. PEG tube noted without any excoriation. EXTREMITIES: No edema, pulses are equal bilaterally. No cyanosis or clubbing. Ulceration noted over his left lower extremity lateral malleolus Procedures 07/19/16 EGD with PEG tube placement 09/27/16 colonoscopy Urinary Catheter: No Date of Insertion: Feb 01, 2017 Vascular Central Line Catheter: No A/P Assessment and Plan Neuro-Behcet, history of frontal lobe CVA, encephalopathy, history of meningitis , chronic No new changes on imaging. Patient was followed by neurology. Aphasic at baseline. Continue Imuran, prednisone EEG shows mild to moderate slowing at times of various depending on the epoch, there was no epileptic activity seen Continue PT/OT Palliative care evaluated the patient and is still indicating the patient is making his own decisions, full code and full aggressive measures Questionable hospital-acquired pneumonia/aspiration Patient remains asymptomatic, no fever, no leukocytosis, no significant tachycardia, no hypoxia Chest x-ray indicates minimal bibasilar densities greater right lower lobe Patient started on Levaquin 750 mg IV every 7 days, changed to by mouth We'll start Lactinex Duo nebs Start normal saline nebulizer Blurred vision/double vision, secondary to neuro-Behcet's syndrome Ophthalmology consulted and indicates that his visual problems are secondary to neuro-Behcet's syndrome Recommending immunosuppressive and steroids, which the patient is already on Sinus tachycardia. Stable Discontinued Lopressor due to low blood pressure TSH, free T3, free T4 colon were normal Melena, bright red blood in stool, resolved Status post transfusion, emergency transferred to [facility] hospital, emergent endoscopy GI evaluated and managed patient with emergent colonoscopy showing small ulcer in the colon Continue Prevacid Sepsis, multiple episodes, resolved at this time Patient does have rather significant coccyx decubitus wound: Wound culture with pseudo fluorescens/putida, group D enterococcus VRE which is sensitive to Zosyn. Patient did have one urine culture of Daphney parapsilosis, was treated with fluconazole for 10 days. --Patient had episode of diarrhea, C. difficile cultures performed which was negative. --Possible aseptic meningitis Infectious disease consulted and last seen the patient on 10/18/16, at that time it was indicated to observe off antibiotics. 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 Would benefit from long-term steroids Prerenal azotemia, resolved Continue monitor renal function periodically Hypernatremia, resolved free water flushes 250 cc every 4 hours Monitor sodium level, BMP ordered for 12/20/16 Decreased oral intake and dysphagia on initial presentation Speech therapy following intermittently. S/P barium swallow. Patient with severe dysphagia. GI was consulted and PEG tube was placed. Nursing staff indicates patient was having bolus feeding intolerance Dietary reconsulted and made recommendations Coccyx decubitus. Wound care nurse is following the patient for management Patient with specialty bed Mood disorder, depression Patient was evaluated by psychiatrist. Prozac 40 mg daily Seroquel 25 mg at bedtime Diabetes Glucose continues to be well controlled, Accu-Cheks and insulin were restarted, and subsequently discontinued DVT Prophylaxis: Lovenox, TEDs/SCDs. Patient examined, records reviewed. No change in treatment plan Discharge Planning Case management for discharge planning, recent records indicate that planning on transferring back to [place], Ede Richardson Feb 07, 2017 15:05
[2017-02-07 20:00] VITALS: BP 103/83; PULSE 96; RESP 16; TEMP 97; O2SAT 93
[2017-02-07] MEDS: QUEtiapine FUMARATE 25 MG TAB PO SCH (20:29)
[2017-02-07 21:23] VITALS: O2SAT 94
[2017-02-07] MEDS: RESP: SODIUM CHLORIDE 0.9% 5 ML NEB NEB SCH (21:23)
[2017-02-08] MEDS: RESP: ALBUTEROL 2.5 MG/IPRATROPIUM 0.5 MG NEB (SCH) NEB ×4 (03:56→22:52)
[2017-02-08] MEDS: azaTHIOprine 50 MG TAB PEG SCH ×2 (06:00→17:48)
[2017-02-08 08:00] VITALS: BP 94/72; PULSE 101; RESP 18; TEMP 99; O2SAT 96
[2017-02-08] MEDS: SENNOSIDES SYRUP 8.8 MG/5 ML CUP PEG SCH (09:00)
[2017-02-08] MEDS: JUVEN POWDER 1 PACK G-TUBE SCH ×2 (09:00→20:56)
[2017-02-08] MEDS: FLUoxetine HCL LIQUID 20 MG/5 ML CUP PEG SCH (09:29)
[2017-02-08] MEDS: LANSOPRAZOLE SOLUTAB 30 MG TAB PEG SCH ×2 (09:29→20:52)
[2017-02-08] MEDS: LACTOBACILLUS ACIDOPHILUS TAB PEG SCH ×2 (09:29→20:52)
[2017-02-08] MEDS: ENOXAPARIN SODIUM 40 MG/0.4 ML SYRINGE SQ SCH (09:29)
[2017-02-08] MEDS: predniSONE 20 MG TAB PEG SCH (09:29)
[2017-02-08] MEDS: LEVOFLOXACIN 750 MG TAB PO SCH (09:29)
[2017-02-08] MEDS: LACTIC ACID (AMMONIUM LACTATE) 12% LOTION 225 GM BTL TOPICAL SCH ×2 (09:30→20:53)
[2017-02-08] MEDS: RESP: SODIUM CHLORIDE 0.9% 5 ML NEB NEB SCH ×2 (09:31→22:52)
--- NOTE | 2017-02-08 11:04 | HHI.PR ---
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 Patient lying in bed comfortably. Denies any new complaints. Patient does have indwelling Kowalski at this time, and he is requesting that he can remain in place. Objective Vitals Vital Signs Date Time Temp Pulse Resp B/P Pulse Ox O2 Delivery O2 Flow Rate FiO2 02/08/17 08:00 99.0 101 18 94/72 96 02/07/17 21:23 94 21 02/07/17 20:00 97.0 96 16 103/83 93 I/O 02/07/17 02/07/17 02/07/17 02/08/17 02/08/17 02/08/17 07:00 15:00 23:00 07:00 15:00 23:00 Intake Total 887 ml 1142 ml Output Total 850 ml 700 ml 225 ml Balance 37 ml 442 ml -225 ml Intake Oral 0 ml IV Total 160 ml Tube Feeding 367 ml 342 ml Tube Irrigant 400 ml Other 520 ml 240 ml Output Urine Total 850 ml 700 ml 225 ml # Bowel Movements 0 0 Result Diagram: 02/06/17 0750 02/05/17 0611 Objective Remarks GENERAL: Well-developed, cachectic and contracted. HEENT: Head is normocephalic without any lesions or masses noted. Facial features are symmetric. Eyes: Extraocular muscles are intact. Conjunctivae were clear. NECK: Trachea midline no deviation. CARDIAC: Regular rhythm, tachycardia noted. S1/S2 are heard. No murmurs gallops or rubs. LUNGS: Clear to auscultation bilaterally. No wheeze, rhonchi or rales. No use of accessory muscles on inspiration or expiration. ABDOMEN: Soft, nontender. Nondistended. Bowel sounds heard in all 4 quadrants. No organomegaly or masses. Negative rebound, negative guarding. PEG tube noted without any excoriation. EXTREMITIES: No edema, pulses are equal bilaterally. No cyanosis or clubbing. Ulceration noted over his left lower extremity lateral malleolus Procedures 07/19/16 EGD with PEG tube placement 09/27/16 colonoscopy Urinary Catheter: Yes Assessment to: Continue Date of Insertion: Feb 01, 2017 Vascular Central Line Catheter: No A/P Assessment and Plan Neuro-Behcet, history of frontal lobe CVA, encephalopathy, history of meningitis , chronic No new changes on imaging. Patient was followed by neurology. Aphasic at baseline. Continue Imuran, prednisone EEG shows mild to moderate slowing at times of various depending on the epoch, there was no epileptic activity seen Continue PT/OT Palliative care evaluated the patient and is still indicating the patient is making his own decisions, full code and full aggressive measures Questionable hospital-acquired pneumonia/aspiration Patient remains asymptomatic, no fever, no leukocytosis, no significant tachycardia, no hypoxia Chest x-ray indicates minimal bibasilar densities greater right lower lobe Continue Levaquin 750 mg by mouth for 7 days Continue Lactinex Duo nebs Continue normal saline nebulizer for 3 days Blurred vision/double vision, secondary to neuro-Behcet's syndrome Ophthalmology consulted and indicates that his visual problems are secondary to neuro-Behcet's syndrome Recommending immunosuppressive and steroids, which the patient is already on Sinus tachycardia. Stable Discontinued Lopressor due to low blood pressure TSH, free T3, free T4 colon were normal Melena, bright red blood in stool, resolved Status post transfusion, emergency transferred to [facility] hospital, emergent endoscopy GI evaluated and managed patient with emergent colonoscopy showing small ulcer in the colon Continue Prevacid Sepsis, multiple episodes, resolved at this time Patient does have rather significant coccyx decubitus wound: Wound culture with pseudo fluorescens/putida, group D enterococcus VRE which is sensitive to Zosyn. Patient did have one urine culture of Daphney parapsilosis, was treated with fluconazole for 10 days. --Patient had episode of diarrhea, C. difficile cultures performed which was negative. --Possible aseptic meningitis Infectious disease consulted and last seen the patient on 10/18/16, at that time it was indicated to observe off antibiotics. 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 Would benefit from long-term steroids Prerenal azotemia, resolved Continue monitor renal function periodically Hypernatremia, resolved free water flushes 250 cc every 4 hours Monitor sodium level, BMP ordered for 12/20/16 Decreased oral intake and dysphagia on initial presentation Speech therapy following intermittently. S/P barium swallow. Patient with severe dysphagia. GI was consulted and PEG tube was placed. Nursing staff indicates patient was having bolus feeding intolerance Dietary reconsulted and made recommendations Coccyx decubitus. Wound care nurse is following the patient for management Patient with specialty bed Mood disorder, depression Patient was evaluated by psychiatrist. Prozac 40 mg daily Seroquel 25 mg at bedtime Diabetes Glucose continues to be well controlled, Accu-Cheks and insulin were restarted, and subsequently discontinued DVT Prophylaxis: Lovenox, TEDs/SCDs. Discharge Planning Case management for discharge planning, recent records indicate that planning on transferring back to [place], dEe Richardson Feb 08, 2017 11:04
[2017-02-08 20:00] VITALS: BP 120/76; PULSE 95; RESP 20; TEMP 95.5; O2SAT 97
[2017-02-08] MEDS: QUEtiapine FUMARATE 25 MG TAB PO SCH (20:52)
[2017-02-08 22:52] VITALS: O2SAT 94
[2017-02-09] MEDS: RESP: ALBUTEROL 2.5 MG/IPRATROPIUM 0.5 MG NEB (SCH) NEB (04:00)
[2017-02-09] MEDS: RESP: ALBUTEROL 2.5 MG/IPRATROPIUM 0.5 MG NEB (PRN) NEB (04:22)
[2017-02-09] MEDS: azaTHIOprine 50 MG TAB PEG SCH ×2 (05:39→16:18)
[2017-02-09] MEDS: RESP: SODIUM CHLORIDE 0.9% 5 ML NEB NEB SCH ×2 (07:36→20:16)
[2017-02-09 07:37] VITALS: O2SAT 95
[2017-02-09] MEDS: ENOXAPARIN SODIUM 40 MG/0.4 ML SYRINGE SQ SCH (08:21)
[2017-02-09] MEDS: FLUoxetine HCL LIQUID 20 MG/5 ML CUP PEG SCH (08:21)
[2017-02-09] MEDS: SENNOSIDES SYRUP 8.8 MG/5 ML CUP PEG SCH (08:21)
[2017-02-09] MEDS: LACTIC ACID (AMMONIUM LACTATE) 12% LOTION 225 GM BTL TOPICAL SCH ×2 (08:21→20:52)
[2017-02-09] MEDS: LACTOBACILLUS ACIDOPHILUS TAB PEG SCH ×2 (08:21→20:52)
[2017-02-09] MEDS: predniSONE 20 MG TAB PEG SCH (08:21)
[2017-02-09] MEDS: LEVOFLOXACIN 750 MG TAB PO SCH (08:21)
[2017-02-09] MEDS: LANSOPRAZOLE SOLUTAB 30 MG TAB PEG SCH ×2 (08:21→20:52)
[2017-02-09 08:45] VITALS: BP 87/63; PULSE 102; RESP 19; TEMP 97.7; O2SAT 95
--- NOTE | 2017-02-09 09:33 | PD.WCN.NOT ---
Wound Consult Description: R lateral Malleolus, and Sacral stage 4 pressure injuries Communicated with: SHIRLENE Brown 5th floor [facility] Recommendation: Please continue to cleanse wounds to R lateral malleolus and coccyx with normal saline and apply Maxorb AG just over wound beds cover with dry cover dressing and change every other day. Additional Information: Patient seen on 5th floor [facility] for follow up of stage 4 pressure injuries sacrum / coccyx wound and R lateral Malleolus wound. Patient positioned to L side for wound assessment with the assistance of insurance underwriter sales to reveal Sacral/ Coccyx wound. Dressing in place was partially dislodged. Removed dressing in place to sacrum to reveal wound that presents with 100% beefy red granulation tissue. Wound has minimal sero-sanguinous drainage without odor. Wound margins are well defined. Scar tissue is noted to periwound that is otherwise unremarkable.Cleansed wound with normal saline.Wound measurements are as follows: 1.2cm x 0.8 cm x 0.3cm. Wound is noted without tunneling or undermining. Applied slightly moistened Maxorb extra AG to wound bed and covered with bordered gauze. Applied skin prep before applying bordered gauze dressing. Wound to R lateral malleolus noted with intact adhesive foam cover dressing that was changed yesterday. Peeled back adhesive foam dressing and alginate dressing in place to reveal wound.Cleansed wound with normal saline. Wound bed is noted with 100% beefy red tissue . Wound measures 1.6cmx 1cm x 0.3cm, undermining between and 8 and 9 o'clock at 0.4 cm.Periwound is noted with newly formed scar tissue. Wound noted with moist wound bed and minimal serous drainage that is without odor. Reapplied Maxorb AG and adhesive foam dressing back in place. Dressing change is due tomorrow. Ar[facility] Feb 09, 2017 09:33
[2017-02-09] MEDS: JUVEN POWDER 1 PACK G-TUBE SCH ×2 (13:12→20:52)
--- NOTE | 2017-02-09 13:16 | HHI.PR ---
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 Patient does look well this morning. Denies any new complaints. Objective Vitals Vital Signs Date Time Temp Pulse Resp B/P Pulse Ox O2 Delivery O2 Flow Rate FiO2 02/09/17 08:45 97.7 102 19 87/63 95 02/09/17 07:37 95 21 02/08/17 22:52 94 21 02/08/17 20:00 95.5 95 20 120/76 97 I/O 02/08/17 02/08/17 02/08/17 02/09/17 02/09/17 02/09/17 07:00 15:00 23:00 07:00 15:00 23:00 Intake Total 760 ml Output Total 225 ml 750 ml 400 ml Balance -225 ml 10 ml -400 ml Tube Feeding 360 ml Other 400 ml Output Urine Total 225 ml 750 ml 400 ml # Bowel Movements 0 0 0 Result Diagram: 02/06/17 0750 02/05/17 0611 Objective Remarks GENERAL: Well-developed, cachectic and contracted. HEENT: Head is normocephalic without any lesions or masses noted. Facial features are symmetric. Eyes: Extraocular muscles are intact. Conjunctivae were clear. NECK: Trachea midline no deviation. CARDIAC: Regular rhythm, tachycardia noted. S1/S2 are heard. No murmurs gallops or rubs. LUNGS: Clear to auscultation bilaterally. No wheeze, rhonchi or rales. No use of accessory muscles on inspiration or expiration. ABDOMEN: Soft, nontender. Nondistended. Bowel sounds heard in all 4 quadrants. No organomegaly or masses. Negative rebound, negative guarding. PEG tube noted without any excoriation. EXTREMITIES: No edema, pulses are equal bilaterally. No cyanosis or clubbing. Ulceration noted over his left lower extremity lateral malleolus Procedures 07/19/16 EGD with PEG tube placement 09/27/16 colonoscopy Urinary Catheter: Yes Assessment to: Continue Kowalski insert reason: Prolonged Immobilization Date of Insertion: Feb 01, 2017 Vascular Central Line Catheter: No A/P Assessment and Plan Neuro-Behcet, history of frontal lobe CVA, encephalopathy, history of meningitis , chronic No new changes on imaging. Patient was followed by neurology. Aphasic at baseline. Continue Imuran, prednisone EEG shows mild to moderate slowing at times of various depending on the epoch, there was no epileptic activity seen Continue PT/OT Palliative care evaluated the patient and is still indicating the patient is making his own decisions, full code and full aggressive measures Questionable hospital-acquired pneumonia/aspiration Patient remains asymptomatic, no fever, no leukocytosis, no significant tachycardia, no hypoxia Chest x-ray indicates minimal bibasilar densities greater right lower lobe Continue Levaquin 750 mg by mouth for 7 days Continue Lactinex Duo nebs Continue normal saline nebulizer for 3 days Blurred vision/double vision, secondary to neuro-Behcet's syndrome Ophthalmology consulted and indicates that his visual problems are secondary to neuro-Behcet's syndrome Recommending immunosuppressive and steroids, which the patient is already on Sinus tachycardia. Stable Discontinued Lopressor due to low blood pressure TSH, free T3, free T4 colon were normal Melena, bright red blood in stool, resolved Status post transfusion, emergency transferred to [facility] hospital, emergent endoscopy GI evaluated and managed patient with emergent colonoscopy showing small ulcer in the colon Continue Prevacid Sepsis, multiple episodes, resolved at this time Patient does have rather significant coccyx decubitus wound: Wound culture with pseudo fluorescens/putida, group D enterococcus VRE which is sensitive to Zosyn. Patient did have one urine culture of Daphney parapsilosis, was treated with fluconazole for 10 days. --Patient had episode of diarrhea, C. difficile cultures performed which was negative. --Possible aseptic meningitis Infectious disease consulted and last seen the patient on 10/18/16, at that time it was indicated to observe off antibiotics. 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 Would benefit from long-term steroids Prerenal azotemia, resolved Continue monitor renal function periodically Hypernatremia, resolved free water flushes 250 cc every 4 hours Monitor sodium level, BMP ordered for 12/20/16 Decreased oral intake and dysphagia on initial presentation Speech therapy following intermittently. S/P barium swallow. Patient with severe dysphagia. GI was consulted and PEG tube was placed. Nursing staff indicates patient was having bolus feeding intolerance Dietary reconsulted and made recommendations Coccyx decubitus. Wound care nurse is following the patient for management Patient with specialty bed Mood disorder, depression Patient was evaluated by psychiatrist. Prozac 40 mg daily Seroquel 25 mg at bedtime Diabetes Glucose continues to be well controlled, Accu-Cheks and insulin were restarted, and subsequently discontinued DVT Prophylaxis: Lovenox, TEDs/SCDs. Discharge Planning Case management for discharge planning, recent records indicate that planning on transferring back to [place], Ede Richardson Feb 09, 2017 13:16
[2017-02-09 20:00] VITALS: BP 96/78; PULSE 80; RESP 18; TEMP 96.7; O2SAT 96
[2017-02-09 20:16] VITALS: O2SAT 95
[2017-02-09] MEDS: QUEtiapine FUMARATE 25 MG TAB PO SCH (20:52)
[2017-02-10] MEDS: azaTHIOprine 50 MG TAB PEG SCH ×2 (05:50→17:05)
[2017-02-10 07:52] VITALS: O2SAT 94
[2017-02-10] MEDS: RESP: SODIUM CHLORIDE 0.9% 5 ML NEB NEB SCH (07:52)
[2017-02-10 08:00] VITALS: BP 103/88; PULSE 85; RESP 20; TEMP 98.1; O2SAT 94
[2017-02-10] MEDS: JUVEN POWDER 1 PACK G-TUBE SCH ×2 (09:00→21:00)
[2017-02-10] MEDS: SENNOSIDES SYRUP 8.8 MG/5 ML CUP PEG SCH (09:00)
[2017-02-10] MEDS: ENOXAPARIN SODIUM 40 MG/0.4 ML SYRINGE SQ SCH (09:24)
[2017-02-10] MEDS: LEVOFLOXACIN 750 MG TAB PO SCH (09:24)
[2017-02-10] MEDS: LACTOBACILLUS ACIDOPHILUS TAB PEG SCH ×2 (09:24→21:11)
[2017-02-10] MEDS: LANSOPRAZOLE SOLUTAB 30 MG TAB PEG SCH ×2 (09:24→21:11)
[2017-02-10] MEDS: FLUoxetine HCL LIQUID 20 MG/5 ML CUP PEG SCH (09:24)
[2017-02-10] MEDS: predniSONE 20 MG TAB PEG SCH (09:24)
[2017-02-10] MEDS: LACTIC ACID (AMMONIUM LACTATE) 12% LOTION 225 GM BTL TOPICAL SCH ×2 (09:25→21:00)
--- NOTE | 2017-02-10 11:35 | HHI.PR ---
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 Patient states that he still having the blurred vision and it is bothering him today. I counseled patient again of his condition with the neuro-Behcet's syndrome that's affecting his vision and that it will likely progressively get worse. Objective Vitals Vital Signs Date Time Temp Pulse Resp B/P Pulse Ox O2 Delivery O2 Flow Rate FiO2 02/10/17 08:00 98.1 85 20 103/88 94 02/10/17 07:52 94 21 02/09/17 20:16 95 21 02/09/17 20:00 96.7 80 18 96/78 96 I/O 02/09/17 02/09/17 02/09/17 02/10/17 02/10/17 02/10/17 07:00 15:00 23:00 07:00 15:00 23:00 Intake Total 555 ml 210 ml Output Total 400 ml 550 ml Balance -400 ml 555 ml -340 ml IV Total 0 ml Tube Feeding 315 ml 210 ml Other 240 ml Output Urine Total 400 ml 550 ml # Bowel Movements 0 0 Result Diagram: 02/06/17 0750 Objective Remarks GENERAL: Well-developed, cachectic and contracted. HEENT: Head is normocephalic without any lesions or masses noted. Facial features are symmetric. Eyes: Extraocular muscles are intact. Conjunctivae were clear. NECK: Trachea midline no deviation. CARDIAC: Regular rhythm, tachycardia noted. S1/S2 are heard. No murmurs gallops or rubs. LUNGS: Clear to auscultation bilaterally. No wheeze, rhonchi or rales. No use of accessory muscles on inspiration or expiration. ABDOMEN: Soft, nontender. Nondistended. Bowel sounds heard in all 4 quadrants. No organomegaly or masses. Negative rebound, negative guarding. PEG tube noted without any excoriation. EXTREMITIES: No edema, pulses are equal bilaterally. No cyanosis or clubbing. Ulceration noted over his left lower extremity lateral malleolus Procedures 07/19/16 EGD with PEG tube placement 09/27/16 colonoscopy Urinary Catheter: No Date of Insertion: Feb 01, 2017 Vascular Central Line Catheter: No A/P Assessment and Plan Neuro-Behcet, history of frontal lobe CVA, encephalopathy, history of meningitis , Blurred vision/double vision,, chronic No new changes on imaging. Patient was followed by neurology. Aphasic at baseline. Continue Imuran, prednisone EEG shows mild to moderate slowing at times of various depending on the epoch, there was no epileptic activity seen Continue PT/OT Palliative care evaluated the patient and is still indicating the patient is making his own decisions, full code and full aggressive measures Ophthalmology consulted and indicates that his visual problems are secondary to neuro-Behcet's syndrome Recommending immunosuppressive and steroids, which the patient is already on Questionable hospital-acquired pneumonia/aspiration Patient remains asymptomatic, no fever, no leukocytosis, no significant tachycardia, no hypoxia Chest x-ray indicates minimal bibasilar densities greater right lower lobe Continue Levaquin 750 mg by mouth for 7 days Continue Lactinex Duo nebs Continue normal saline nebulizer for 3 days Decreased oral intake and dysphagia on initial presentation Speech therapy following intermittently. S/P barium swallow. Patient with severe dysphagia. GI was consulted and PEG tube was placed. Nursing staff indicates patient was having bolus feeding intolerance Dietary reconsulted and made recommendations Coccyx decubitus. Wound care nurse is following the patient for management Patient with specialty bed Mood disorder, depression Patient was evaluated by psychiatrist. Prozac 40 mg daily Seroquel 25 mg at bedtime Diabetes Glucose continues to be well controlled, Accu-Cheks and insulin were restarted, and subsequently discontinued DVT Prophylaxis: Lovenox, TEDs/SCDs. Discharge Planning Case management for discharge planning, recent records indicate that planning on transferring back to [place], Ede Richardson Feb 10, 2017 11:34
[2017-02-10 20:00] VITALS: BP 112/93; PULSE 90; RESP 18; TEMP 95.9; O2SAT 97
[2017-02-10 20:18] VITALS: O2SAT 96
[2017-02-10] MEDS: QUEtiapine FUMARATE 25 MG TAB PO SCH (21:11)
[2017-02-11] MEDS: azaTHIOprine 50 MG TAB PEG SCH ×2 (05:53→17:36)
[2017-02-11 07:15] VITALS: BP 124/81; PULSE 80; RESP 20; TEMP 97.4; O2SAT 97
[2017-02-11 08:35] VITALS: O2SAT 95
[2017-02-11] MEDS: JUVEN POWDER 1 PACK G-TUBE SCH ×2 (09:00→20:26)
[2017-02-11 09:03] VITALS: BP 107/83; PULSE 83; RESP 20; TEMP 98.5; O2SAT 97
[2017-02-11] MEDS: LANSOPRAZOLE SOLUTAB 30 MG TAB PEG SCH ×2 (09:06→20:25)
[2017-02-11] MEDS: SENNOSIDES SYRUP 8.8 MG/5 ML CUP PEG SCH (09:06)
[2017-02-11] MEDS: LACTOBACILLUS ACIDOPHILUS TAB PEG SCH ×2 (09:06→20:25)
[2017-02-11] MEDS: FLUoxetine HCL LIQUID 20 MG/5 ML CUP PEG SCH (09:06)
[2017-02-11] MEDS: predniSONE 20 MG TAB PEG SCH (09:06)
[2017-02-11] MEDS: ENOXAPARIN SODIUM 40 MG/0.4 ML SYRINGE SQ SCH (09:07)
[2017-02-11] MEDS: LACTIC ACID (AMMONIUM LACTATE) 12% LOTION 225 GM BTL TOPICAL SCH ×2 (09:23→20:25)
--- NOTE | 2017-02-11 11:36 | HHI.PR ---
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 Patient denies any new complaints. States that blurred vision is about the same. Nursing staff indicates that patient had increased secretions last night where respiratory had to do suctioning. Objective Vitals Vital Signs Date Time Temp Pulse Resp B/P Pulse Ox O2 Delivery O2 Flow Rate FiO2 02/11/17 09:03 98.5 83 20 107/83 97 02/11/17 08:35 95 02/10/17 20:18 96 21 02/10/17 20:00 95.9 90 18 112/93 97 I/O 02/10/17 02/10/17 02/10/17 02/11/17 02/11/17 02/11/17 06:59 14:59 22:59 06:59 14:59 22:59 Intake Total 210 ml 1076 ml 270 ml Output Total 550 ml Balance -340 ml 1076 ml 270 ml Intake Oral 0 ml 0 ml IV Total 0 ml 0 ml Tube Feeding 210 ml 406 ml 240 ml Tube Irrigant 400 ml Other 270 ml 30 ml Output Urine Total 550 ml # Voids 0 # Bowel Movements 0 0 Objective Remarks GENERAL: Well-developed, cachectic and contracted. HEENT: Head is normocephalic without any lesions or masses noted. Facial features are symmetric. Eyes: Extraocular muscles are intact. Conjunctivae were clear. NECK: Trachea midline no deviation. CARDIAC: Regular rhythm, tachycardia noted. S1/S2 are heard. No murmurs gallops or rubs. LUNGS: Clear to auscultation bilaterally. No wheeze, rhonchi or rales. No use of accessory muscles on inspiration or expiration. ABDOMEN: Soft, nontender. Nondistended. Bowel sounds heard in all 4 quadrants. No organomegaly or masses. Negative rebound, negative guarding. PEG tube noted without any excoriation. EXTREMITIES: No edema, pulses are equal bilaterally. No cyanosis or clubbing. Ulceration noted over his left lower extremity lateral malleolus Procedures 07/19/16 EGD with PEG tube placement 09/27/16 colonoscopy Urinary Catheter: Yes Assessment to: Continue Kowalski insert reason: Prolonged Immobilization Date of Insertion: Feb 01, 2017 A/P Assessment and Plan Neuro-Behcet, history of frontal lobe CVA, encephalopathy, history of meningitis , Blurred vision/double vision,, chronic No new changes on imaging. Patient was followed by neurology. Aphasic at baseline. 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 S/P barium swallow. Patient with severe dysphagia. GI was consulted and PEG tube was placed. Nursing staff indicates patient was having bolus feeding intolerance Dietary reconsulted and made recommendations Coccyx decubitus. Wound care nurse is following the patient for management Patient with specialty bed Mood disorder, depression Patient was evaluated by psychiatrist. Prozac 40 mg daily Seroquel 25 mg at bedtime Diabetes Glucose continues to be well controlled, Accu-Cheks and insulin were restarted, and subsequently discontinued DVT Prophylaxis: Lovenox, TEDs/SCDs. Discharge Planning Case management for discharge planning, recent records indicate that planning on transferring back to [place], Ede Richardson Feb 11, 2017 11:36
[2017-02-11 20:00] VITALS: BP 99/78; PULSE 93; RESP 14; TEMP 96.1; O2SAT 95
[2017-02-11] MEDS: QUEtiapine FUMARATE 25 MG TAB PO SCH (20:25)
[2017-02-12] MEDS: azaTHIOprine 50 MG TAB PEG SCH ×2 (05:48→17:47)
--- NOTE | 2017-02-12 07:30 | HHI.PR ---
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 Patient lying in bed comfortably. Denies any new complaints. No change in clinical status Objective Vitals Vital Signs Date Time Temp Pulse Resp B/P Pulse Ox O2 Delivery O2 Flow Rate FiO2 02/11/17 20:00 96.1 93 14 99/78 95 02/11/17 09:03 98.5 83 20 107/83 97 02/11/17 08:35 95 I/O 02/11/17 02/11/17 02/11/17 02/12/17 02/12/17 02/12/17 06:59 14:59 22:59 06:59 14:59 22:59 Intake Total 270 ml 920 ml Output Total 450 ml 400 ml Balance 270 ml 470 ml -400 ml Intake Oral 0 ml IV Total 0 ml Tube Feeding 240 ml 240 ml Tube Irrigant 680 ml Other 30 ml 0 ml Output Urine Total 450 ml 400 ml # Voids 0 # Bowel Movements 0 1 Objective Remarks GENERAL: Well-developed, cachectic and contracted. HEENT: Head is normocephalic without any lesions or masses noted. Facial features are symmetric. Eyes: Extraocular muscles are intact. Conjunctivae were clear. NECK: Trachea midline no deviation. CARDIAC: Regular rhythm, tachycardia noted. S1/S2 are heard. No murmurs gallops or rubs. LUNGS: Clear to auscultation bilaterally. No wheeze, rhonchi or rales. No use of accessory muscles on inspiration or expiration. ABDOMEN: Soft, nontender. Nondistended. Bowel sounds heard in all 4 quadrants. No organomegaly or masses. Negative rebound, negative guarding. PEG tube noted without any excoriation. EXTREMITIES: No edema, pulses are equal bilaterally. No cyanosis or clubbing. Ulceration noted over his left lower extremity lateral malleolus Procedures 07/19/16 EGD with PEG tube placement 09/27/16 colonoscopy Urinary Catheter: No Date of Insertion: Feb 01, 2017 Vascular Central Line Catheter: No A/P Assessment and Plan Neuro-Behcet, history of frontal lobe CVA, encephalopathy, history of meningitis , Blurred vision/double vision,, chronic No new changes on imaging. Patient was followed by neurology. Aphasic at baseline. 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 S/P barium swallow. Patient with severe dysphagia. GI was consulted and PEG tube was placed. Nursing staff indicates patient was having bolus feeding intolerance Dietary reconsulted and made recommendations Coccyx decubitus. Wound care nurse is following the patient for management Patient with specialty bed Mood disorder, depression Patient was evaluated by psychiatrist. Prozac 40 mg daily Seroquel 25 mg at bedtime Diabetes Glucose continues to be well controlled, Accu-Cheks and insulin were restarted, and subsequently discontinued DVT Prophylaxis: Lovenox, TEDs/SCDs. Discharge Planning Case management for discharge planning, recent records indicate that planning on transferring back to [place], Ede Richardson Feb 12, 2017 07:30
[2017-02-12] MEDS: JUVEN POWDER 1 PACK G-TUBE SCH ×2 (07:35→20:35)
[2017-02-12] MEDS: predniSONE 20 MG TAB PEG SCH (07:36)
[2017-02-12] MEDS: FLUoxetine HCL LIQUID 20 MG/5 ML CUP PEG SCH (07:36)
[2017-02-12] MEDS: LANSOPRAZOLE SOLUTAB 30 MG TAB PEG SCH ×2 (07:36→20:31)
[2017-02-12] MEDS: LACTOBACILLUS ACIDOPHILUS TAB PEG SCH ×2 (07:36→20:31)
[2017-02-12] MEDS: SENNOSIDES SYRUP 8.8 MG/5 ML CUP PEG SCH (07:36)
[2017-02-12] MEDS: ENOXAPARIN SODIUM 40 MG/0.4 ML SYRINGE SQ SCH (07:37)
[2017-02-12] MEDS: LACTIC ACID (AMMONIUM LACTATE) 12% LOTION 225 GM BTL TOPICAL SCH ×2 (07:37→20:32)
[2017-02-12 07:51] VITALS: BP 91/76; PULSE 101; RESP 15; TEMP 96.4; O2SAT 95
[2017-02-12 20:00] VITALS: BP 109/87; PULSE 83; RESP 20; TEMP 96.1; O2SAT 100
[2017-02-12 20:24] VITALS: O2SAT 96
[2017-02-12] MEDS: QUEtiapine FUMARATE 25 MG TAB PO SCH (20:31)
[2017-02-13] MEDS: azaTHIOprine 50 MG TAB PEG SCH ×2 (05:41→18:26)
[2017-02-13 08:00] VITALS: BP 109/85; PULSE 84; RESP 16; TEMP 96.6; O2SAT 96
[2017-02-13] MEDS: JUVEN POWDER 1 PACK G-TUBE SCH ×2 (09:00→21:00)
[2017-02-13] MEDS: LACTIC ACID (AMMONIUM LACTATE) 12% LOTION 225 GM BTL TOPICAL SCH ×2 (09:00→21:02)
[2017-02-13] MEDS: LANSOPRAZOLE SOLUTAB 30 MG TAB PEG SCH ×2 (10:03→21:01)
[2017-02-13] MEDS: ENOXAPARIN SODIUM 40 MG/0.4 ML SYRINGE SQ SCH (10:03)
[2017-02-13] MEDS: FLUoxetine HCL LIQUID 20 MG/5 ML CUP PEG SCH (10:03)
[2017-02-13] MEDS: SENNOSIDES SYRUP 8.8 MG/5 ML CUP PEG SCH (10:03)
[2017-02-13] MEDS: LACTOBACILLUS ACIDOPHILUS TAB PEG SCH ×2 (10:03→21:01)
[2017-02-13] MEDS: predniSONE 20 MG TAB PEG SCH (10:04)
--- NOTE | 2017-02-13 11:24 | HHI.PR ---
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 and saoded-dt-qav were at bedside. Is indicated that patient states that he still having visual changes. He did not indicate that they are worse than usual. Family was concerned. Discussed with them findings from pharmacy resource tech that this is normal condition with the neuro-Behcet's syndrome and recommended same treatment that he is already receiving Objective Vitals Vital Signs Date Time Temp Pulse Resp B/P (MAP) Pulse Ox O2 Delivery O2 Flow Rate FiO2 02/13/17 08:00 96.6 84 16 109/85 (93) 96 02/12/17 20:24 96 21 02/12/17 20:00 96.1 83 20 109/87 (94) 100 I/O 02/12/17 02/12/17 02/12/17 02/13/17 02/13/17 02/13/17 07:00 15:00 23:00 07:00 15:00 23:00 Intake Total 760 ml 0 ml Output Total 200 ml 450 ml 125 ml Balance -200 ml 310 ml -125 ml Intake Oral 0 ml Tube Feeding 360 ml Other 400 ml Output Urine Total 200 ml 450 ml 125 ml # Bowel Movements 1 2 1 Objective Remarks GENERAL: Well-developed, cachectic and contracted. HEENT: Head is normocephalic without any lesions or masses noted. Facial features are symmetric. Eyes: Extraocular muscles are intact. Conjunctivae were clear. NECK: Trachea midline no deviation. CARDIAC: Regular rhythm, tachycardia noted. S1/S2 are heard. No murmurs gallops or rubs. LUNGS: Clear to auscultation bilaterally. No wheeze, rhonchi or rales. No use of accessory muscles on inspiration or expiration. ABDOMEN: Soft, nontender. Nondistended. Bowel sounds heard in all 4 quadrants. No organomegaly or masses. Negative rebound, negative guarding. PEG tube noted without any excoriation. EXTREMITIES: No edema, pulses are equal bilaterally. No cyanosis or clubbing. Ulceration noted over his left lower extremity lateral malleolus Procedures 07/19/16 EGD with PEG tube placement 09/27/16 colonoscopy Urinary Catheter: Yes Assessment to: Continue Kowalski insert reason: Prolonged Immobilization Date of Insertion: Feb 01, 2017 Vascular Central Line Catheter: No A/P Problem List: (1) Hospital acquired PNA ICD Code: J18.9 - Pneumonia, unspecified organism Status: Acute (2) Neurologic type Behcet's syndrome ICD Code: M35.2 - Behcet's disease Status: Chronic (3) Sepsis ICD Code: A41.9 - Sepsis, unspecified organism Status: Resolved (4) Encephalopathy ICD Code: G93.40 - Encephalopathy, unspecified Status: Resolved (5) GI bleed ICD Code: K92.2 - Gastrointestinal hemorrhage, unspecified Status: Resolved (6) HCAP (healthcare-associated pneumonia) ICD Code: J18.9 - Pneumonia, unspecified organism Status: Resolved (7) UTI (urinary tract infection) ICD Code: N39.0 - Urinary tract infection, site not specified Status: Resolved (8) Leucocytosis ICD Code: D72.829 - Elevated white blood cell count, unspecified Status: Resolved (9) Fever ICD Code: R50.9 - Fever, unspecified Status: Resolved (10) Effusion of hip joint ICD Code: M25.459 - Effusion, unspecified hip Status: Acute (11) 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 Patient was followed by neurology. Aphasic at baseline. 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 S/P barium swallow. Patient with severe dysphagia. GI was consulted and PEG tube was placed. Nursing staff indicates patient was having bolus feeding intolerance Dietary reconsulted and made recommendations Coccyx decubitus. Wound care nurse is following the patient for management Patient with specialty bed Mood disorder, depression Patient was evaluated by psychiatrist. Prozac 40 mg daily Seroquel 25 mg at bedtime Diabetes Glucose continues to be well controlled, Accu-Cheks and insulin were restarted, and subsequently discontinued DVT Prophylaxis: Lovenox, TEDs/SCDs. Discharge Planning Case management for discharge planning, recent records indicate that planning on transferring back to [place], Problem Qualifiers (1) GI bleed: (2) UTI (urinary tract infection): (3) Effusion of hip joint: Ede Richardson Feb 13, 2017 11:24
[2017-02-13 19:55] VITALS: O2SAT 97
[2017-02-13 20:00] VITALS: BP 104/78; PULSE 82; RESP 18; TEMP 97.2; O2SAT 97
[2017-02-13] MEDS: QUEtiapine FUMARATE 25 MG TAB PO SCH (21:01)
[2017-02-14] MEDS: azaTHIOprine 50 MG TAB PEG SCH ×2 (06:03→17:58)
[2017-02-14 08:00] VITALS: BP 106/78; PULSE 89; RESP 18; TEMP 96.7; O2SAT 96
--- NOTE | 2017-02-14 08:13 | PD.WCN.NOT ---
Wound Consult Description: R lateral Malleolus, and Sacral stage 4 pressure injuries Communicated with: SHIRLENE Hudson Recommendation: Please continue to cleanse wounds to R lateral malleolus and coccyx with normal saline and apply Maxorb AG just over wound beds cover with dry cover dressing and change every other day. Additional Information: Patient seen on 5th floor [facility] for follow up of stage 4 pressure injuries sacrum / coccyx wound and R lateral Malleolus wound. Patient positioned to L side for wound assessment with the assistance of video game script writer to reveal a large amount of liquid brown stool. Cleansed patient with soap and water to reveal Sacral/ Coccyx wound that is open to air. Wound bed presents with 100% beefy red granulation tissue and moist wound bed. Wound has minimal sero-sanguinous drainage without odor and well defined wound margins. Scar tissue is noted to periwound that is otherwise unremarkable.Cleansed wound with normal saline.Wound measurements are as follows: 0.9cm x 0.5cm cm x 0.4cm. Wound is noted without tunneling or undermining. Applied slightly moistened Maxorb extra AG to wound bed and covered with bordered gauze. Applied skin prep before applying bordered gauze dressing. Wound to R lateral malleolus noted with slightly displaced bordered dressing that was changed yesterday. Peel back bordered gauze dressing and Calcium alginate AG dressing in place to reveal wound.Cleansed wound with normal saline. Wound bed is noted with 100% beefy red tissue . Cleansed wound with normal saline.Wound measures 1cmx 1.4cm x 0.2cm, undermining between and 8 and 9 o'clock at 0.2 cm.Periwound is noted with newly formed scar tissue and hyperkeratotic tissue between 8 and 9 o'clock. Wound bed is moist with minimal serous drainage that is without odor. Reapplied Maxorb AG and adhesive foam dressing back in place. Dressing change is due tomorrow. Arleen Gibbs [facility] Feb 14, 2017 08:13
[2017-02-14] MEDS: LANSOPRAZOLE SOLUTAB 30 MG TAB PEG SCH ×2 (08:41→20:00)
[2017-02-14] MEDS: LACTOBACILLUS ACIDOPHILUS TAB PEG SCH ×2 (08:41→20:00)
[2017-02-14] MEDS: SENNOSIDES SYRUP 8.8 MG/5 ML CUP PEG SCH (08:41)
[2017-02-14] MEDS: FLUoxetine HCL LIQUID 20 MG/5 ML CUP PEG SCH (08:41)
[2017-02-14] MEDS: predniSONE 20 MG TAB PEG SCH (08:41)
[2017-02-14] MEDS: ENOXAPARIN SODIUM 40 MG/0.4 ML SYRINGE SQ SCH (08:42)
[2017-02-14] MEDS: LACTIC ACID (AMMONIUM LACTATE) 12% LOTION 225 GM BTL TOPICAL SCH ×2 (08:44→19:59)
[2017-02-14] MEDS: PADIMATE (CHAPSTICK) 4.5 GM TUBE TOPICAL PRN (08:54)
[2017-02-14] MEDS: ARTIFICIAL TEARS OPTH SOLN 15 ML BTL EACH EYE PRN (08:55)
[2017-02-14] MEDS: HYOSCYAMINE SOLN 0.125 MG/ML 15 ML BTL PEG PRN (08:55)
[2017-02-14] MEDS: JUVEN POWDER 1 PACK G-TUBE SCH ×2 (08:56→19:52)
[2017-02-14 08:59] VITALS: O2SAT 94
--- NOTE | 2017-02-14 10:03 | HHI.PR ---
Subjective Remarks Follow-up for neuro-Behcet's syndrome. The nurse reports the patient has some green mucus around the PEG tube site. Patient denies any shortness of breath. Denies any pain. Nurse later called and informed me the patient has some yellow green penile discharge similar to that at the PEG tube site. Objective Vitals Vital Signs Date Time Temp Pulse Resp B/P (MAP) Pulse Ox O2 Delivery O2 Flow Rate FiO2 02/14/17 08:59 94 21 02/14/17 08:00 96.7 89 18 106/78 (87) 96 02/13/17 20:00 97.2 82 18 104/78 (87) 97 02/13/17 19:55 97 21 I/O 02/13/17 02/13/17 02/13/17 02/14/17 02/14/17 02/14/17 07:00 15:00 23:00 07:00 15:00 23:00 Intake Total 0 ml 0 ml 800 ml 1148 ml Output Total 125 ml 250 ml 300 ml 150 ml Balance -125 ml -250 ml 500 ml 998 ml Intake Oral 0 ml 0 ml Tube Feeding 400 ml 468 ml Other 400 ml 680 ml Output Urine Total 125 ml 250 ml 300 ml 150 ml # Bowel Movements 1 0 0 Objective Remarks GENERAL: Thin patient in no apparent distress. SKIN: No erythema around the PEG tube site. There is no notable drainage. CARDIOVASCULAR: Tachycardic with regular rhythm. RESPIRATORY: Coarse likely attributed to transmitted sounds from upper airway. No rales or wheezing. GASTROINTESTINAL: Abdomen soft, non-tender, nondistended. Feeding tube present. NEUROLOGICAL: Awake and alert. Nods head to answer questions. 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 (3) Sepsis ICD Code: A41.9 - Sepsis, unspecified organism Status: Resolved (4) Encephalopathy ICD Code: G93.40 - Encephalopathy, unspecified Status: Resolved (5) GI bleed ICD Code: K92.2 - Gastrointestinal hemorrhage, unspecified Status: Resolved (6) HCAP (healthcare-associated pneumonia) ICD Code: J18.9 - Pneumonia, unspecified organism Status: Resolved (7) UTI (urinary tract infection) ICD Code: N39.0 - Urinary tract infection, site not specified Status: Resolved (8) Leucocytosis ICD Code: D72.829 - Elevated white blood cell count, unspecified Status: Resolved (9) Fever ICD Code: R50.9 - Fever, unspecified Status: Resolved (10) Effusion of hip joint ICD Code: M25.459 - Effusion, unspecified hip Status: Acute (11) 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 Patient followed by neurology. Aphasic at baseline. Neurology following the patient Continue Imuran, prednisone EEG shows mild to moderate slowing at times of various depending on the epoch, there was no epileptic activity seen Continue PT/OT Palliative care following the patient and is still indicating the patient is making his own decisions, full code and full aggressive measures [place] as needed for pain. Blurred vision/Diplopia: Related to his neuro Behet's syndrome. -Ophthalmology evaluated patient on 01/11/17. 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 Recommends immunosuppressants and steroids which patient is currently on. Hospital acquired pneumonia: Stable -S/p Levaquin 750 mg x 7 days -Continue suctioning q6h -Continue Duonebs Urinary retention: Stable. 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 -Monitor intake and output. -Patient will likely need to keep Kowalski in place as he is non-ambulatory. Diabetes: Stable HbA1c 6.6 on 09/25/16. Accu-checks and SSI were discontinued. SIRS/Sepsis, multiple episodes: Resolved. Coccyx decubitus wound: Wound culture with pseudo fluorescens/putida, group D enterococcus VRE which is sensitive to Zosyn. Patient did have one urine culture of Daphney parapsilosis, was treated with fluconazole for 10 days. Patient had episode of diarrhea, C. difficile cultures performed which was negative. Infectious disease consulted and last seen the patient on 10/18/16, at that time it was indicated to observe off antibiotics. 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 Would benefit from long-term steroids. Most recently treated for possible HAP on 02/05. Sinus tachycardia: Stable. S/p Lopressor TSH, free T3, free T4 were normal Melena, bright red blood in stool: Resolved Status post transfusion, emergently transferred to [facility], emergent endoscopy GI evaluated and managed patient with emergent colonoscopy showing small ulcer in the colon Continue Prevacid Hemoglobin stable Hypotension: stable -Lopressor discontinued on 01/02. Prerenal azotemia: Resolved. S/p IVF Continue to monitor renal function periodically. Hypernatremia and hyperchloremia: Resolved. Continue free water flushes 200 cc every 4 hours Hypokalemia with mild hypomagnesemia: Improved s/p repletion. Decreased oral intake and dysphagia on initial presentation Speech therapy following intermittently. S/P barium swallow. Patient with severe dysphagia. GI consulted and PEG tube was placed. Dance Studio Manager following. Due to vomiting tube feeding changed to low volume TwoCal HN, goal rate 50ml/hr. Free Water Flushes and additional free water flush with Maury bid. Coccyx decubitus: Wound care nurse is following. Continue to cleanse with normal saline and apply Maxorb AG just over wound beds cover with dry cover dressing and change every other day. Specialty bed Ankle ulcer: R lateral malleolus. -Foam boots. -Wound care nurse following. Continue to cleanse with normal saline and apply Maxorb AG just over wound beds cover with dry cover dressing and change every other day. Depression: Patient was evaluated by psychiatrist. Continue Prozac 40 mg daily and Seroquel 25 mg HS. Constipation: Improved. Continue scheduled Senna and Miralax prn. DVT Prophylaxis: Lovenox, TEDs/SCDs. Penile discharge: Unlikely to be acute STI considering patient's length of stay here at the hospital. Kowalski is functional. Advised RN to monitor and will recheck tomorrow. If continues can obtain culture. Discharge Planning 01/27: seafood and service meat manager [facility] following up on assistance plan to transfer patient there, awaiting return call. Problem Qualifiers (1) GI bleed: (2) UTI (urinary tract infection): (3) Effusion of hip joint: Mari Talamantes Feb 14, 2017 10:03
[2017-02-14 20:00] VITALS: BP 96/72; PULSE 102; RESP 11; TEMP 96.7; O2SAT 98
[2017-02-14] MEDS: QUEtiapine FUMARATE 25 MG TAB PO SCH (20:00)
[2017-02-14 20:15] VITALS: O2SAT 94
[2017-02-15] MEDS: azaTHIOprine 50 MG TAB PEG SCH ×2 (05:06→17:27)
[2017-02-15 07:15] VITALS: BP 109/74; PULSE 89; RESP 16; TEMP 96.9; O2SAT 98
[2017-02-15] MEDS: JUVEN POWDER 1 PACK G-TUBE SCH ×2 (09:00→21:00)
[2017-02-15] MEDS: LANSOPRAZOLE SOLUTAB 30 MG TAB PEG SCH ×2 (09:25→20:54)
[2017-02-15] MEDS: FLUoxetine HCL LIQUID 20 MG/5 ML CUP PEG SCH (09:25)
[2017-02-15] MEDS: ENOXAPARIN SODIUM 40 MG/0.4 ML SYRINGE SQ SCH (09:25)
[2017-02-15] MEDS: SENNOSIDES SYRUP 8.8 MG/5 ML CUP PEG SCH (09:25)
[2017-02-15] MEDS: predniSONE 20 MG TAB PEG SCH (09:26)
[2017-02-15] MEDS: LACTIC ACID (AMMONIUM LACTATE) 12% LOTION 225 GM BTL TOPICAL SCH ×2 (09:26→20:55)
[2017-02-15] MEDS: LACTOBACILLUS ACIDOPHILUS TAB PEG SCH ×2 (09:26→20:54)
[2017-02-15] MEDS: HYOSCYAMINE SOLN 0.125 MG/ML 15 ML BTL PEG PRN (09:27)
[2017-02-15] MEDS: ARTIFICIAL TEARS OPTH SOLN 15 ML BTL EACH EYE PRN (09:27)
--- NOTE | 2017-02-15 12:17 | HHI.PR ---
Subjective Remarks Follow-up for neuro Behet's syndrome. Patient denies any pain. Denies any shortness of breath. Objective Vitals Vital Signs Date Time Temp Pulse Resp B/P (MAP) Pulse Ox O2 Delivery O2 Flow Rate FiO2 02/15/17 07:15 96.9 89 16 109/74 (86) 98 02/14/17 20:15 94 21 02/14/17 20:00 96.7 102 11 96/72 (80) 98 I/O 02/14/17 02/14/17 02/14/17 02/15/17 02/15/17 02/15/17 06:59 14:59 22:59 06:59 14:59 22:59 Intake Total 1148 ml 1120 ml 720 ml 570 ml Output Total 150 ml 200 ml 800 ml 200 ml Balance 998 ml 920 ml -80 ml 370 ml Tube Feeding 468 ml 480 ml 320 ml 320 ml Tube Irrigant 400 ml 400 ml 250 ml Other 680 ml 240 ml Output Urine Total 150 ml 200 ml 800 ml 200 ml # Bowel Movements 0 1 1 1 Objective Remarks GENERAL: Thin patient in no apparent distress. CARDIOVASCULAR: Regular rate and rhythm. RESPIRATORY: CTAB. GASTROINTESTINAL: Abdomen soft, non-tender, nondistended. NEUROLOGICAL: Awake and alert. Nods head to answer questions. 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 (3) Sepsis ICD Code: A41.9 - Sepsis, unspecified organism Status: Resolved (4) Encephalopathy ICD Code: G93.40 - Encephalopathy, unspecified Status: Resolved (5) GI bleed ICD Code: K92.2 - Gastrointestinal hemorrhage, unspecified Status: Resolved (6) HCAP (healthcare-associated pneumonia) ICD Code: J18.9 - Pneumonia, unspecified organism Status: Resolved (7) UTI (urinary tract infection) ICD Code: N39.0 - Urinary tract infection, site not specified Status: Resolved (8) Leucocytosis ICD Code: D72.829 - Elevated white blood cell count, unspecified Status: Resolved (9) Fever ICD Code: R50.9 - Fever, unspecified Status: Resolved (10) Effusion of hip joint ICD Code: M25.459 - Effusion, unspecified hip Status: Acute (11) 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 Patient followed by neurology. Aphasic at baseline. Neurology following the patient Continue Imuran, prednisone EEG shows mild to moderate slowing at times of various depending on the epoch, there was no epileptic activity seen Continue PT/OT Palliative care following the patient and is still indicating the patient is making his own decisions, full code and full aggressive measures [place] as needed for pain. Blurred vision/Diplopia: Related to his neuro Behet's syndrome. -Ophthalmology evaluated patient on 01/11/17. 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 Recommends immunosuppressants and steroids which patient is currently on. Hospital acquired pneumonia: Stable -S/p Levaquin 750 mg x 7 days -Continue suctioning q6h -Continue Duonebs Urinary retention: Stable. 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 -Monitor intake and output. -Patient will likely need to keep Kowalski in place as he is non-ambulatory. Diabetes: Stable HbA1c 6.6 on 09/25/16. Accu-checks and SSI were discontinued. SIRS/Sepsis, multiple episodes: Resolved. Coccyx decubitus wound: Wound culture with pseudo fluorescens/putida, group D enterococcus VRE which is sensitive to Zosyn. Patient did have one urine culture of Daphney parapsilosis, was treated with fluconazole for 10 days. Patient had episode of diarrhea, C. difficile cultures performed which was negative. Infectious disease consulted and last seen the patient on 10/18/16, at that time it was indicated to observe off antibiotics. 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 Would benefit from long-term steroids. Most recently treated for possible HAP on 02/05. Sinus tachycardia: Stable. S/p Lopressor TSH, free T3, free T4 were normal Melena, bright red blood in stool: Resolved Status post transfusion, emergently transferred to main hospital, emergent endoscopy GI evaluated and managed patient with emergent colonoscopy showing small ulcer in the colon Continue Prevacid Hemoglobin stable Hypotension: stable -Lopressor discontinued on 01/02. Prerenal azotemia: Resolved. S/p IVF Continue to monitor renal function periodically. Hypernatremia and hyperchloremia: Resolved. Continue free water flushes 200 cc every 4 hours Hypokalemia with mild hypomagnesemia: Improved s/p repletion. Decreased oral intake and dysphagia on initial presentation Speech therapy following intermittently. S/P barium swallow. Patient with severe dysphagia. GI consulted and PEG tube was placed. Ring Making Machine Operator following. Due to vomiting tube feeding changed to low volume TwoCal HN, goal rate 50ml/hr. Free Water Flushes and additional free water flush with Maury bid. Coccyx decubitus: Wound care nurse is following. Continue to cleanse with normal saline and apply Maxorb AG just over wound beds cover with dry cover dressing and change every other day. Specialty bed Ankle ulcer: R lateral malleolus. -Foam boots. -Wound care nurse following. Continue to cleanse with normal saline and apply Maxorb AG just over wound beds cover with dry cover dressing and change every other day. Depression: Patient was evaluated by psychiatrist. Continue Prozac 40 mg daily and Seroquel 25 mg HS. Constipation: Improved. Continue scheduled Senna and Miralax prn. DVT Prophylaxis: Lovenox, TEDs/SCDs. Discharge Planning 01/27: general farm manager called [facility] following up on assistance plan to transfer patient there, awaiting return call. 02/10: CM still awaiting call back. Problem Qualifiers (1) GI bleed: (2) UTI (urinary tract infection): (3) Effusion of hip joint: Mari Talamantes Feb 15, 2017 12:17
[2017-02-15 12:31] VITALS: BP 100/74; PULSE 89; RESP 16; TEMP 96.9; O2SAT 98
[2017-02-15 20:00] VITALS: BP 98/75; PULSE 76; RESP 21; TEMP 97.6; O2SAT 95
[2017-02-15] MEDS: QUEtiapine FUMARATE 25 MG TAB PO SCH (20:54)
[2017-02-16] MEDS: azaTHIOprine 50 MG TAB PEG SCH ×2 (05:11→17:04)
[2017-02-16 08:37] VITALS: BP 105/74; PULSE 90; RESP 19; TEMP 98.6; O2SAT 100
[2017-02-16] MEDS: LACTOBACILLUS ACIDOPHILUS TAB PEG SCH ×2 (08:37→21:21)
[2017-02-16] MEDS: ENOXAPARIN SODIUM 40 MG/0.4 ML SYRINGE SQ SCH (08:37)
[2017-02-16] MEDS: FLUoxetine HCL LIQUID 20 MG/5 ML CUP PEG SCH (08:37)
[2017-02-16] MEDS: SENNOSIDES SYRUP 8.8 MG/5 ML CUP PEG SCH (08:37)
[2017-02-16] MEDS: LANSOPRAZOLE SOLUTAB 30 MG TAB PEG SCH ×2 (08:37→21:21)
[2017-02-16] MEDS: JUVEN POWDER 1 PACK G-TUBE SCH ×2 (08:37→21:22)
[2017-02-16] MEDS: predniSONE 20 MG TAB PEG SCH (08:37)
[2017-02-16] MEDS: LACTIC ACID (AMMONIUM LACTATE) 12% LOTION 225 GM BTL TOPICAL SCH ×2 (08:44→21:21)
[2017-02-16] MEDS: HYOSCYAMINE SOLN 0.125 MG/ML 15 ML BTL PEG PRN (08:44)
[2017-02-16] MEDS: ARTIFICIAL TEARS OPTH SOLN 15 ML BTL EACH EYE PRN (08:45)
--- NOTE | 2017-02-16 13:22 | HHI.PR ---
Subjective Remarks Follow-up for neuro Behet's syndrome. No acute complaints. Objective Vitals Vital Signs Date Time Temp Pulse Resp B/P (MAP) Pulse Ox O2 Delivery O2 Flow Rate FiO2 02/16/17 08:37 98.6 90 19 105/74 (84) 100 02/15/17 20:00 97.6 76 21 98/75 (83) 95 I/O 02/15/17 02/15/17 02/15/17 02/16/17 02/16/17 02/16/17 06:59 14:59 22:59 06:59 14:59 22:59 Intake Total 570 ml 975 ml 904 ml 800 ml Output Total 200 ml 376 ml 450 ml 425 ml Balance 370 ml 599 ml 454 ml 375 ml Intake Oral 0 ml Tube Feeding 320 ml 425 ml 400 ml 400 ml Tube Irrigant 250 ml 550 ml 504 ml 400 ml Output Urine Total 200 ml 375 ml 450 ml 425 ml Stool Total 1 ml 0 ml # Voids 0 # Bowel Movements 1 2 1 Objective Remarks GENERAL: Thin patient in no apparent distress. CARDIOVASCULAR: Regular rate and rhythm. RESPIRATORY: CTAB. Transmitted snorting sounds. GASTROINTESTINAL: Abdomen soft, non-tender, nondistended. NEUROLOGICAL: Awake and alert. Nods head to answer questions. 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 (3) Sepsis ICD Code: A41.9 - Sepsis, unspecified organism Status: Resolved (4) Encephalopathy ICD Code: G93.40 - Encephalopathy, unspecified Status: Resolved (5) GI bleed ICD Code: K92.2 - Gastrointestinal hemorrhage, unspecified Status: Resolved (6) HCAP (healthcare-associated pneumonia) ICD Code: J18.9 - Pneumonia, unspecified organism Status: Resolved (7) UTI (urinary tract infection) ICD Code: N39.0 - Urinary tract infection, site not specified Status: Resolved (8) Leucocytosis ICD Code: D72.829 - Elevated white blood cell count, unspecified Status: Resolved (9) Fever ICD Code: R50.9 - Fever, unspecified Status: Resolved (10) Effusion of hip joint ICD Code: M25.459 - Effusion, unspecified hip Status: Acute (11) 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 Patient followed by neurology. Aphasic at baseline. Neurology following the patient Continue Imuran, prednisone EEG shows mild to moderate slowing at times of various depending on the epoch, there was no epileptic activity seen Continue PT/OT Palliative care following the patient and is still indicating the patient is making his own decisions, full code and full aggressive measures [place] as needed for pain. Blurred vision/Diplopia: Related to his neuro Behet's syndrome. -Ophthalmology evaluated patient on 01/11/17. 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 Recommends immunosuppressants and steroids which patient is currently on. Hospital acquired pneumonia: Stable -S/p Levaquin 750 mg x 7 days -Continue suctioning q6h -Continue Duonebs Urinary retention: Stable. 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 -Monitor intake and output. -Patient will likely need to keep Kowalski in place as he is non-ambulatory. Diabetes: Stable HbA1c 6.6 on 09/25/16. Accu-checks and SSI were discontinued. SIRS/Sepsis, multiple episodes: Resolved. Coccyx decubitus wound: Wound culture with pseudo fluorescens/putida, group D enterococcus VRE which is sensitive to Zosyn. Patient did have one urine culture of Daphney parapsilosis, was treated with fluconazole for 10 days. Patient had episode of diarrhea, C. difficile cultures performed which was negative. Infectious disease consulted and last seen the patient on 10/18/16, at that time it was indicated to observe off antibiotics. 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 Would benefit from long-term steroids. Most recently treated for possible HAP on 02/05. Sinus tachycardia: Stable. S/p Lopressor TSH, free T3, free T4 were normal Melena, bright red blood in stool: Resolved Status post transfusion, emergently transferred to main hospital, emergent endoscopy GI evaluated and managed patient with emergent colonoscopy showing small ulcer in the colon Continue Prevacid Hemoglobin stable Hypotension: stable -Lopressor discontinued on 01/02. Prerenal azotemia: Resolved. S/p IVF Continue to monitor renal function periodically. Hypernatremia and hyperchloremia: Resolved. Continue free water flushes 200 cc every 4 hours Hypokalemia with mild hypomagnesemia: Improved s/p repletion. Decreased oral intake and dysphagia on initial presentation Speech therapy following intermittently. S/P barium swallow. Patient with severe dysphagia. GI consulted and PEG tube was placed. Finished Metal Repairer following. Due to vomiting tube feeding changed to low volume TwoCal HN, goal rate 50ml/hr. Free Water Flushes and additional free water flush with Maury bid. Coccyx decubitus: Wound care nurse is following. Continue to cleanse with normal saline and apply Maxorb AG just over wound beds cover with dry cover dressing and change every other day. Specialty bed Ankle ulcer: R lateral malleolus. -Foam boots. -Wound care nurse following. Continue to cleanse with normal saline and apply Maxorb AG just over wound beds cover with dry cover dressing and change every other day. Depression: Patient was evaluated by psychiatrist. Continue Prozac 40 mg daily and Seroquel 25 mg HS. Constipation: Improved. Continue scheduled Senna and Miralax prn. DVT Prophylaxis: Lovenox, TEDs/SCDs. Discharge Planning 01/27: [facility] assistance plan to transfer patient there, awaiting return call. 02/10: CM still awaiting call back. Problem Qualifiers (1) GI bleed: (2) UTI (urinary tract infection): (3) Effusion of hip joint: Mari Talamantes Feb 16, 2017 13:22
[2017-02-16 20:00] VITALS: BP 107/86; PULSE 77; RESP 12; TEMP 96.5; O2SAT 97
[2017-02-16] MEDS: QUEtiapine FUMARATE 25 MG TAB PO SCH (21:21)
[2017-02-17] MEDS: azaTHIOprine 50 MG TAB PEG SCH ×2 (05:40→18:00)
[2017-02-17 08:00] VITALS: BP 94/71; PULSE 85; RESP 22; TEMP 97.2; O2SAT 96
[2017-02-17] MEDS: predniSONE 20 MG TAB PEG SCH (08:50)
[2017-02-17] MEDS: LACTOBACILLUS ACIDOPHILUS TAB PEG SCH ×2 (08:50→21:30)
[2017-02-17] MEDS: LANSOPRAZOLE SOLUTAB 30 MG TAB PEG SCH ×2 (08:50→21:30)
[2017-02-17] MEDS: FLUoxetine HCL LIQUID 20 MG/5 ML CUP PEG SCH (08:51)
[2017-02-17] MEDS: ENOXAPARIN SODIUM 40 MG/0.4 ML SYRINGE SQ SCH (08:51)
[2017-02-17] MEDS: SENNOSIDES SYRUP 8.8 MG/5 ML CUP PEG SCH (08:51)
[2017-02-17] MEDS: LACTIC ACID (AMMONIUM LACTATE) 12% LOTION 225 GM BTL TOPICAL SCH ×2 (08:59→21:31)
[2017-02-17] MEDS: JUVEN POWDER 1 PACK G-TUBE SCH ×2 (09:00→21:00)
--- NOTE | 2017-02-17 09:42 | HHI.PR ---
Subjective Remarks Follow-up for neuro Behet's syndrome. Patient denies any shortness of breath. Objective Vitals Vital Signs Date Time Temp Pulse Resp B/P (MAP) Pulse Ox O2 Delivery O2 Flow Rate FiO2 02/17/17 08:00 97.2 85 22 94/71 (79) 96 02/16/17 20:00 96.5 77 12 107/86 (93) 97 I/O 02/16/17 02/16/17 02/16/17 02/17/17 02/17/17 02/17/17 06:59 14:59 22:59 06:59 14:59 22:59 Intake Total 800 ml 960 ml 1430 ml 605 ml Output Total 425 ml 175 ml 250 ml Balance 375 ml 960 ml 1255 ml 355 ml Intake Oral 0 ml Tube Feeding 400 ml 720 ml 992 ml 374 ml Tube Irrigant 400 ml Other 240 ml 438 ml 231 ml Output Urine Total 425 ml 175 ml 250 ml # Voids 2 # Bowel Movements 1 1 1 1 Objective Remarks GENERAL: Thin patient in no apparent distress. CARDIOVASCULAR: Regular rate and rhythm. RESPIRATORY: Transmitted grunting sounds. GASTROINTESTINAL: Abdomen soft, non-tender, nondistended. NEUROLOGICAL: Awake and alert. Nods head to answer questions. 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's disease Status: Chronic (3) Sepsis ICD Code: A41.9 - Sepsis, unspecified organism Status: Resolved (4) Encephalopathy ICD Code: G93.40 - Encephalopathy, unspecified Status: Resolved (5) GI bleed ICD Code: K92.2 - Gastrointestinal hemorrhage, unspecified Status: Resolved (6) HCAP (healthcare-associated pneumonia) ICD Code: J18.9 - Pneumonia, unspecified organism Status: Resolved (7) UTI (urinary tract infection) ICD Code: N39.0 - Urinary tract infection, site not specified Status: Resolved (8) Leucocytosis ICD Code: D72.829 - Elevated white blood cell count, unspecified Status: Resolved (9) Fever ICD Code: R50.9 - Fever, unspecified Status: Resolved (10) Effusion of hip joint ICD Code: M25.459 - Effusion, unspecified hip Status: Acute (11) 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 Patient followed by neurology. Aphasic at baseline. Neurology following the patient Continue Imuran, prednisone EEG shows mild to moderate slowing at times of various depending on the epoch, there was no epileptic activity seen Continue PT/OT Palliative care following the patient and is still indicating the patient is making his own decisions, full code and full aggressive measures [place] as needed for pain. Blurred vision/Diplopia: Related to his neuro Behet's syndrome. -Ophthalmology evaluated patient on 01/11/17. 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 Recommends immunosuppressants and steroids which patient is currently on. Hospital acquired pneumonia: Stable -S/p Levaquin 750 mg x 7 days -Continue suctioning q6h -Continue Duonebs Urinary retention: Stable. 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 -Monitor intake and output. -Patient will likely need to keep Kowalski in place as he is non-ambulatory. -Urine output decreased at 425 mL over the last 24 hours. Obtain BMP to evaluate renal function. RN advised to monitor urine output. Diabetes: Stable HbA1c 6.6 on 09/25/16. Accu-checks and SSI were discontinued. SIRS/Sepsis, multiple episodes: Resolved. Coccyx decubitus wound: Wound culture with pseudo fluorescens/putida, group D enterococcus VRE which is sensitive to Zosyn. Patient did have one urine culture of Daphney parapsilosis, was treated with fluconazole for 10 days. Patient had episode of diarrhea, C. difficile cultures performed which was negative. Infectious disease consulted and last seen the patient on 10/18/16, at that time it was indicated to observe off antibiotics. 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 Would benefit from long-term steroids. Most recently treated for possible HAP on 02/05. Sinus tachycardia: Stable. S/p Lopressor TSH, free T3, free T4 were normal Melena, bright red blood in stool: Resolved Status post transfusion, emergently transferred to main hospital, emergent endoscopy GI evaluated and managed patient with emergent colonoscopy showing small ulcer in the colon Continue Prevacid Hemoglobin stable Hypotension: -Lopressor discontinued on 01/02. -02/17: BP low this morning but MAP intact. Monitor. Ensure patient is getting adequate free water. Prerenal azotemia: Recurrent S/p IVF 02/17: BUN elevated at 25. Cr normal. Additional 200 mL free water flush ordered. Continue scheduled flushes. Hypernatremia and hyperchloremia: Resolved. Continue free water flushes 200 cc every 4 hours Hypokalemia with mild hypomagnesemia: Improved s/p repletion. Decreased oral intake and dysphagia on initial presentation Speech therapy following intermittently. S/P barium swallow. Patient with severe dysphagia. GI consulted and PEG tube was placed. Building Custodian following. Due to vomiting tube feeding changed to low volume TwoCal HN, goal rate 50ml/hr. Free Water Flushes and additional free water flush with Maury bid. Coccyx decubitus: Wound care nurse is following. Continue to cleanse with normal saline and apply Maxorb AG just over wound beds cover with dry cover dressing and change every other day. Specialty bed Ankle ulcer: R lateral malleolus. -Foam boots. -Wound care nurse following. Continue to cleanse with normal saline and apply Maxorb AG just over wound beds cover with dry cover dressing and change every other day. Depression: Patient was evaluated by psychiatrist. Continue Prozac 40 mg daily and Seroquel 25 mg HS. Constipation: Improved. Continue scheduled Senna and Miralax prn. DVT Prophylaxis: Lovenox, TEDs/SCDs. Discharge Planning 01/27: staffing program manager called [facility] following up on assistance plan to transfer patient there, awaiting return call. 02/10: CM still awaiting call back. Problem Qualifiers (1) GI bleed: (2) UTI (urinary tract infection): (3) Effusion of hip joint: Mari Talamantes Feb 17, 2017 09:42
[2017-02-17 12:20] LABS: CALCIUM 9.1 MG/DL (8.5-10.1)
[2017-02-17 12:21] LABS: BICARBONATE 27.4 MEQ/L (21.0-32.0)
[2017-02-17 12:24] LABS: CREATININE 0.82 MG/DL (0.60-1.30)
[2017-02-17 20:00] VITALS: BP 93/79; PULSE 84; RESP 14; TEMP 95.6; O2SAT 99
[2017-02-17] MEDS: QUEtiapine FUMARATE 25 MG TAB PO SCH (21:30)
[2017-02-18] MEDS: azaTHIOprine 50 MG TAB PEG SCH ×2 (05:47→07:44)
[2017-02-18] MEDS: LACTOBACILLUS ACIDOPHILUS TAB PEG SCH ×2 (07:44→20:48)
[2017-02-18] MEDS: ONDANSETRON HCL 4 MG/5 ML UDC PEG PRN (07:44)
[2017-02-18] MEDS: SENNOSIDES SYRUP 8.8 MG/5 ML CUP PEG SCH (07:44)
[2017-02-18] MEDS: predniSONE 20 MG TAB PEG SCH (07:44)
[2017-02-18] MEDS: ENOXAPARIN SODIUM 40 MG/0.4 ML SYRINGE SQ SCH (07:44)
[2017-02-18] MEDS: LANSOPRAZOLE SOLUTAB 30 MG TAB PEG SCH ×2 (07:44→20:48)
[2017-02-18] MEDS: LACTIC ACID (AMMONIUM LACTATE) 12% LOTION 225 GM BTL TOPICAL SCH ×2 (07:45→20:49)
[2017-02-18] MEDS: FLUoxetine HCL LIQUID 20 MG/5 ML CUP PEG SCH (07:45)
[2017-02-18] MEDS: ACETAMINOPHEN/HYDROcodone 325 MG/5 MG TAB PEG PRN (07:46)
[2017-02-18] MEDS: JUVEN POWDER 1 PACK G-TUBE SCH ×2 (07:50→21:00)
[2017-02-18 09:28] VITALS: BP 142/82; PULSE 88; RESP 18; TEMP 96.5; O2SAT 96
--- NOTE | 2017-02-18 09:54 | HHI.PR ---
Subjective Remarks Follow-up for neuro Behet's syndrome. Denies shortness of breath. Objective Vitals Vital Signs Date Time Temp Pulse Resp B/P (MAP) Pulse Ox O2 Delivery O2 Flow Rate FiO2 02/18/17 09:28 96.5 88 18 142/82 (102) 96 02/17/17 20:00 95.6 84 14 93/79 (84) 99 I/O 02/17/17 02/17/17 02/17/17 02/18/17 02/18/17 02/18/17 07:00 15:00 23:00 07:00 15:00 23:00 Intake Total 605 ml 0 ml 1000 ml Output Total 250 ml 250 ml 850 ml 550 ml Balance 355 ml -250 ml 150 ml -550 ml Intake Oral 0 ml Tube Feeding 374 ml 400 ml Other 231 ml 600 ml Output Urine Total 250 ml 250 ml 850 ml 550 ml # Bowel Movements 1 1 1 1 Result Diagram: 02/17/17 1200 Objective Remarks GENERAL: Thin patient in no apparent distress. CARDIOVASCULAR: Regular rate and rhythm. RESPIRATORY: Coarse breath sounds, grunting. GASTROINTESTINAL: Abdomen soft, non-tender, nondistended. PEG tube present. NEUROLOGICAL: Awake and alert. Nods head to answer questions. 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 (3) Sepsis ICD Code: A41.9 - Sepsis, unspecified organism Status: Resolved (4) Encephalopathy ICD Code: G93.40 - Encephalopathy, unspecified Status: Resolved (5) GI bleed ICD Code: K92.2 - Gastrointestinal hemorrhage, unspecified Status: Resolved (6) HCAP (healthcare-associated pneumonia) ICD Code: J18.9 - Pneumonia, unspecified organism Status: Resolved (7) UTI (urinary tract infection) ICD Code: N39.0 - Urinary tract infection, site not specified Status: Resolved (8) Leucocytosis ICD Code: D72.829 - Elevated white blood cell count, unspecified Status: Resolved (9) Fever ICD Code: R50.9 - Fever, unspecified Status: Resolved (10) Effusion of hip joint ICD Code: M25.459 - Effusion, unspecified hip Status: Acute (11) 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 Patient followed by neurology. Aphasic at baseline. Neurology following the patient Continue Imuran, prednisone EEG shows mild to moderate slowing at times of various depending on the epoch, there was no epileptic activity seen Continue PT/OT Palliative care following the patient and is still indicating the patient is making his own decisions, full code and full aggressive measures [place] as needed for pain. Blurred vision/Diplopia: Related to his neuro Behet's syndrome. -Ophthalmology evaluated patient on 01/11/17. 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 Recommends immunosuppressants and steroids which patient is currently on. Hospital acquired pneumonia: Stable -S/p Levaquin 750 mg x 7 days -Continue suctioning q6h -Continue Duonebs Urinary retention: Stable. 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 -Monitor intake and output. -Patient will likely need to keep Kowalski in place as he is non-ambulatory. -02/18: Urine output greatly improved over the last 24 hours, 1650 mL. Diabetes: Stable HbA1c 6.6 on 09/25/16. Accu-checks and SSI were discontinued. SIRS/Sepsis, multiple episodes: Resolved. Coccyx decubitus wound: Wound culture with pseudo fluorescens/putida, group D enterococcus VRE which is sensitive to Zosyn. Patient did have one urine culture of Daphney parapsilosis, was treated with fluconazole for 10 days. Patient had episode of diarrhea, C. difficile cultures performed which was negative. Infectious disease consulted and last seen the patient on 10/18/16, at that time it was indicated to observe off antibiotics. 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 Would benefit from long-term steroids. Most recently treated for possible HAP on 02/05. Sinus tachycardia: Stable. S/p Lopressor TSH, free T3, free T4 were normal Melena, bright red blood in stool: Resolved Status post transfusion, emergently transferred to main hospital, emergent endoscopy GI evaluated and managed patient with emergent colonoscopy showing small ulcer in the colon Continue Prevacid Hemoglobin stable Hypotension: Improved this morning. -Lopressor discontinued on 01/02. Prerenal azotemia: Recurrent S/p IVF 02/17: BUN elevated at 25. Cr normal. Additional 200 mL free water flush ordered. Continue scheduled flushes. 02/18: Recheck renal function tomorrow. Hypernatremia and hyperchloremia: Resolved. Continue free water flushes 200 cc every 4 hours Hypokalemia with mild hypomagnesemia: Improved s/p repletion. Decreased oral intake and dysphagia on initial presentation Speech therapy following intermittently. S/P barium swallow. Patient with severe dysphagia. GI consulted and PEG tube was placed. Tree Care Foreman following. Due to vomiting tube feeding changed to low volume TwoCal HN, goal rate 50ml/hr. Free Water Flushes and additional free water flush with Maury bid. Coccyx decubitus: Wound care nurse is following. Continue to cleanse with normal saline and apply Maxorb AG just over wound beds cover with dry cover dressing and change every other day. Specialty bed Ankle ulcer: R lateral malleolus. -Foam boots. -Wound care nurse following. Continue to cleanse with normal saline and apply Maxorb AG just over wound beds cover with dry cover dressing and change every other day. Depression: Patient was evaluated by psychiatrist. Continue Prozac 40 mg daily and Seroquel 25 mg HS. Constipation: Improved. Continue scheduled Senna and Miralax prn. DVT Prophylaxis: Lovenox, TEDs/SCDs. Discharge Planning 01/27: evaluation manager called [facility] following up on assistance plan to transfer patient there, awaiting return call. 02/10: CM still awaiting call back. Problem Qualifiers (1) GI bleed: (2) UTI (urinary tract infection): (3) Effusion of hip joint: Mari Talamantes Feb 18, 2017 09:54
[2017-02-18 19:50] VITALS: O2SAT 96
[2017-02-18 20:00] VITALS: BP 100/88; PULSE 70; RESP 18; TEMP 95.9; O2SAT 96
[2017-02-18] MEDS: QUEtiapine FUMARATE 25 MG TAB PO SCH (20:48)
[2017-02-19] MEDS: azaTHIOprine 50 MG TAB PEG SCH ×2 (05:55→18:32)
[2017-02-19] MEDS: ACETAMINOPHEN/HYDROcodone 325 MG/5 MG TAB PEG PRN (05:56)
[2017-02-19 06:50] LABS: CREATININE 0.7 MG/DL (0.60-1.30)
[2017-02-19 08:00] VITALS: BP 94/69; PULSE 95; RESP 18; TEMP 98.1; O2SAT 95
[2017-02-19] MEDS: SENNOSIDES SYRUP 8.8 MG/5 ML CUP PEG SCH (08:12)
[2017-02-19] MEDS: LANSOPRAZOLE SOLUTAB 30 MG TAB PEG SCH ×2 (08:12→20:23)
[2017-02-19] MEDS: FLUoxetine HCL LIQUID 20 MG/5 ML CUP PEG SCH (08:12)
[2017-02-19] MEDS: ENOXAPARIN SODIUM 40 MG/0.4 ML SYRINGE SQ SCH (08:12)
[2017-02-19] MEDS: LACTOBACILLUS ACIDOPHILUS TAB PEG SCH ×2 (08:12→20:23)
[2017-02-19] MEDS: predniSONE 20 MG TAB PEG SCH (08:12)
[2017-02-19] MEDS: HYOSCYAMINE SOLN 0.125 MG/ML 15 ML BTL PEG PRN (08:13)
[2017-02-19] MEDS: LACTIC ACID (AMMONIUM LACTATE) 12% LOTION 225 GM BTL TOPICAL SCH ×2 (08:14→20:23)
[2017-02-19] MEDS: JUVEN POWDER 1 PACK G-TUBE SCH ×3 (09:00→21:00)
--- NOTE | 2017-02-19 11:03 | HHI.PR ---
Subjective Remarks Follow-up for neural Behet's syndrome. The nurse informs me the patient's face is swollen. The patient admits to his cheeks feeling swollen but denies any swelling of his tongue or lips. He denies any difficulty swallowing or shortness of breath. Objective Vitals Vital Signs Date Time Temp Pulse Resp B/P (MAP) Pulse Ox O2 Delivery O2 Flow Rate FiO2 02/19/17 08:00 98.1 95 18 94/69 (77) 95 02/18/17 20:00 95.9 70 18 100/88 (92) 96 02/18/17 19:50 96 21 I/O 02/18/17 02/18/17 02/18/17 02/19/17 02/19/17 02/19/17 06:59 14:59 22:59 06:59 14:59 22:59 Intake Total 0 ml Output Total 550 ml 1180 ml 800 ml Balance -550 ml -1180 ml -800 ml Intake Oral 0 ml Output Urine Total 550 ml 1180 ml 800 ml # Bowel Movements 1 Result Diagram: 02/19/17 0610 Objective Remarks GENERAL: Thin patient in no apparent distress. HEAD: Cheeks appear mildly swollen. CARDIOVASCULAR: Tachycardic rate and regular rhythm. RESPIRATORY: Coarse breath sounds, grunting. GASTROINTESTINAL: Abdomen soft, non-tender, nondistended. NEUROLOGICAL: Awake and alert. Nods head to answer questions. 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 (3) Sepsis ICD Code: A41.9 - Sepsis, unspecified organism Status: Resolved (4) Encephalopathy ICD Code: G93.40 - Encephalopathy, unspecified Status: Resolved (5) GI bleed ICD Code: K92.2 - Gastrointestinal hemorrhage, unspecified Status: Resolved (6) HCAP (healthcare-associated pneumonia) ICD Code: J18.9 - Pneumonia, unspecified organism Status: Resolved (7) UTI (urinary tract infection) ICD Code: N39.0 - Urinary tract infection, site not specified Status: Resolved (8) Leucocytosis ICD Code: D72.829 - Elevated white blood cell count, unspecified Status: Resolved (9) Fever ICD Code: R50.9 - Fever, unspecified Status: Resolved (10) Effusion of hip joint ICD Code: M25.459 - Effusion, unspecified hip Status: Acute (11) 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 Patient followed by neurology. Aphasic at baseline. Neurology following the patient Continue Imuran, prednisone EEG shows mild to moderate slowing at times of various depending on the epoch, there was no epileptic activity seen Continue PT/OT Palliative care following the patient and is still indicating the patient is making his own decisions, full code and full aggressive measures [place] as needed for pain. 02/19: Nurse reported facial swelling. Cheeks may be mildly swollen but no significant swelling noted. Could be due to prolonged prednisone use. Monitor clinically. Blurred vision/Diplopia: Related to his neuro Behet's syndrome. -Ophthalmology evaluated patient on 01/11/17. 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 Recommends immunosuppressants and steroids which patient is currently on. Hospital acquired pneumonia: Stable -S/p Levaquin 750 mg x 7 days -Continue suctioning q6h -Continue Duonebs Urinary retention: Stable. 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 -Monitor intake and output. -Patient will need to keep Kowalski in place as he is non-ambulatory. Change monthly. -02/19: Urine output wnl over last 24 hours Diabetes: Stable HbA1c 6.6 on 09/25/16. Accu-checks and SSI were discontinued. SIRS/Sepsis, multiple episodes: Resolved. Coccyx decubitus wound: Wound culture with pseudo fluorescens/putida, group D enterococcus VRE which is sensitive to Zosyn. Patient did have one urine culture of Daphney parapsilosis, was treated with fluconazole for 10 days. Patient had episode of diarrhea, C. difficile cultures performed which was negative. Infectious disease consulted and last seen the patient on 10/18/16, at that time it was indicated to observe off antibiotics. 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 Would benefit from long-term steroids. Most recently treated for possible HAP on 02/05. Sinus tachycardia: Stable. S/p Lopressor TSH, free T3, free T4 were normal Melena, bright red blood in stool: Resolved Status post transfusion, emergently transferred to [facility], emergent endoscopy GI evaluated and managed patient with emergent colonoscopy showing small ulcer in the colon Continue Prevacid Hemoglobin stable Hypotension: -Lopressor discontinued on 01/02. -02/19: Again hypotensive this morning but MAP is intact. Prerenal azotemia: Resolved. S/p IVF 02/17: BUN elevated at 25. Cr normal. Additional 200 mL free water flush ordered. Continue scheduled flushes. 02/19: BUN now wnl. Hypernatremia and hyperchloremia: Resolved. Continue free water flushes 200 cc every 4 hours Hypokalemia with mild hypomagnesemia: Improved s/p repletion. Decreased oral intake and dysphagia on initial presentation Speech therapy following intermittently. S/P barium swallow. Patient with severe dysphagia. GI consulted and PEG tube was placed. Supervisor Contingents following. Due to vomiting tube feeding changed to low volume TwoCal HN, goal rate 50ml/hr. Free Water Flushes and additional free water flush with Maury bid. Coccyx decubitus: Wound care nurse is following. Continue to cleanse with normal saline and apply Maxorb AG just over wound beds cover with dry cover dressing and change every other day. Specialty bed Ankle ulcer: R lateral malleolus. -Foam boots. -Wound care nurse following. Continue to cleanse with normal saline and apply Maxorb AG just over wound beds cover with dry cover dressing and change every other day. Depression: Patient was evaluated by psychiatrist. Continue Prozac 40 mg daily and Seroquel 25 mg HS. Constipation: Improved. Continue scheduled Senna and Miralax prn. DVT Prophylaxis: Lovenox, TEDs/SCDs. Discharge Planning 01/27: corporate tax manager called [facility] following up on assistance plan to transfer patient there, awaiting return call. 02/10: CM still awaiting call back. Problem Qualifiers (1) GI bleed: (2) UTI (urinary tract infection): (3) Effusion of hip joint: Mari Talamantes Feb 19, 2017 11:03
[2017-02-19 20:00] VITALS: BP 102/80; PULSE 96; RESP 15; TEMP 96.6; O2SAT 96
[2017-02-19] MEDS: QUEtiapine FUMARATE 25 MG TAB PO SCH (20:23)
[2017-02-19 21:00] VITALS: O2SAT 96
[2017-02-20] MEDS: azaTHIOprine 50 MG TAB PEG SCH ×2 (05:49→17:50)
[2017-02-20 09:10] VITALS: BP 94/72; PULSE 93; RESP 16; TEMP 97.9; O2SAT 97
[2017-02-20] MEDS: JUVEN POWDER 1 PACK G-TUBE SCH ×2 (09:34→20:07)
[2017-02-20] MEDS: ENOXAPARIN SODIUM 40 MG/0.4 ML SYRINGE SQ SCH (09:35)
[2017-02-20] MEDS: LACTOBACILLUS ACIDOPHILUS TAB PEG SCH ×2 (09:35→20:08)
[2017-02-20] MEDS: FLUoxetine HCL LIQUID 20 MG/5 ML CUP PEG SCH (09:35)
[2017-02-20] MEDS: LANSOPRAZOLE SOLUTAB 30 MG TAB PEG SCH ×2 (09:35→20:08)
[2017-02-20] MEDS: SENNOSIDES SYRUP 8.8 MG/5 ML CUP PEG SCH (09:35)
[2017-02-20] MEDS: predniSONE 20 MG TAB PEG SCH (09:36)
[2017-02-20] MEDS: LACTIC ACID (AMMONIUM LACTATE) 12% LOTION 225 GM BTL TOPICAL SCH ×2 (09:36→20:09)
--- NOTE | 2017-02-20 11:23 | HHI.PR ---
Subjective Remarks Follow-up for neuro Behet's syndrome. Nods to answer questions. Patient agrees the swelling in his face is less than before. He denies any shortness of breath. Denies any pain. Objective Vitals Vital Signs Date Time Temp Pulse Resp B/P (MAP) Pulse Ox O2 Delivery O2 Flow Rate FiO2 02/20/17 09:10 97.9 93 16 94/72 (79) 97 02/19/17 21:00 96 21 02/19/17 20:00 96.6 96 15 102/80 (87) 96 I/O 02/19/17 02/19/17 02/19/17 02/20/17 02/20/17 02/20/17 07:00 15:00 23:00 07:00 15:00 23:00 Intake Total 0 ml 850 ml Output Total 800 ml 450 ml 300 ml 750 ml Balance -800 ml 400 ml -300 ml -750 ml Intake Oral 0 ml Tube Feeding 450 ml Other 400 ml Output Urine Total 800 ml 450 ml 300 ml 750 ml # Bowel Movements 0 0 Result Diagram: 02/19/17 0610 Objective Remarks GENERAL: Thin patient in no apparent distress. HEAD: No swelling of the face noted. CARDIOVASCULAR: Regular rate and rhythm. RESPIRATORY: Coarse breath sounds bilaterally. GASTROINTESTINAL: Abdomen soft, non-tender, nondistended. PEG tube present. NEUROLOGICAL: Awake and alert. Nods head to answer questions. 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 (3) Sepsis ICD Code: A41.9 - Sepsis, unspecified organism Status: Resolved (4) Encephalopathy ICD Code: G93.40 - Encephalopathy, unspecified Status: Resolved (5) GI bleed ICD Code: K92.2 - Gastrointestinal hemorrhage, unspecified Status: Resolved (6) HCAP (healthcare-associated pneumonia) ICD Code: J18.9 - Pneumonia, unspecified organism Status: Resolved (7) UTI (urinary tract infection) ICD Code: N39.0 - Urinary tract infection, site not specified Status: Resolved (8) Leucocytosis ICD Code: D72.829 - Elevated white blood cell count, unspecified Status: Resolved (9) Fever ICD Code: R50.9 - Fever, unspecified Status: Resolved (10) Effusion of hip joint ICD Code: M25.459 - Effusion, unspecified hip Status: Acute (11) 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 Patient followed by neurology. Aphasic at baseline. Neurology following the patient Continue Imuran, prednisone EEG shows mild to moderate slowing at times of various depending on the epoch, there was no epileptic activity seen Continue PT/OT Palliative care following the patient and is still indicating the patient is making his own decisions, full code and full aggressive measures [place] as needed for pain. Blurred vision/Diplopia: Related to his neuro Behet's syndrome. -Ophthalmology evaluated patient on 01/11/17. 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 Recommends immunosuppressants and steroids which patient is currently on. Hospital acquired pneumonia: Stable -S/p Levaquin 750 mg x 7 days -Continue suctioning q6h -Continue Duonebs Urinary retention: Stable. 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 -Monitor intake and output. -Patient will need to keep Kowalski in place as he is non-ambulatory. Change monthly. -02/20: Urine output wnl over last 24 hours Diabetes: Stable HbA1c 6.6 on 09/25/16. Accu-checks and SSI were discontinued. SIRS/Sepsis, multiple episodes: Resolved. Coccyx decubitus wound: Wound culture with pseudo fluorescens/putida, group D enterococcus VRE which is sensitive to Zosyn. Patient did have one urine culture of Daphney parapsilosis, was treated with fluconazole for 10 days. Patient had episode of diarrhea, C. difficile cultures performed which was negative. Infectious disease consulted and last seen the patient on 10/18/16, at that time it was indicated to observe off antibiotics. 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 Would benefit from long-term steroids. Most recently treated for possible HAP on 02/05. Sinus tachycardia: Stable. S/p Lopressor TSH, free T3, free T4 were normal Melena, bright red blood in stool: Resolved Status post transfusion, emergently transferred to main hospital, emergent endoscopy GI evaluated and managed patient with emergent colonoscopy showing small ulcer in the colon Continue Prevacid Hemoglobin stable Hypotension: -Lopressor discontinued on 01/02. -02/20: Again hypotensive this morning but MAP is intact. Prerenal azotemia: Resolved. S/p IVF 02/17: BUN elevated at 25. Cr normal. Additional 200 mL free water flush ordered. Continue scheduled flushes. 02/19: BUN now wnl. Hypernatremia and hyperchloremia: Resolved. Continue free water flushes 200 cc every 4 hours Hypokalemia with mild hypomagnesemia: Improved s/p repletion. Decreased oral intake and dysphagia on initial presentation Speech therapy following intermittently. S/P barium swallow. Patient with severe dysphagia. GI consulted and PEG tube was placed. Surgeon Partner following. Due to vomiting tube feeding changed to low volume TwoCal HN, goal rate 50ml/hr. Free Water Flushes and additional free water flush with Maury bid. Coccyx decubitus: Wound care nurse is following. Continue to cleanse with normal saline and apply Maxorb AG just over wound beds cover with dry cover dressing and change every other day. Specialty bed Ankle ulcer: R lateral malleolus. -Foam boots. -Wound care nurse following. Continue to cleanse with normal saline and apply Maxorb AG just over wound beds cover with dry cover dressing and change every other day. Depression: Patient was evaluated by psychiatrist. Continue Prozac 40 mg daily and Seroquel 25 mg HS. Constipation: Improved. Continue scheduled Senna and Miralax prn. DVT Prophylaxis: Lovenox, TEDs/SCDs. Discharge Planning 01/27: annual greenhouse manager [facility] plan to transfer patient there, awaiting return call. 02/10: CM still awaiting call back. Problem Qualifiers (1) GI bleed: (2) UTI (urinary tract infection): (3) Effusion of hip joint: Mari Talamantes Feb 20, 2017 11:23
[2017-02-20 20:00] VITALS: BP 107/87; PULSE 80; RESP 18; TEMP 96.8; O2SAT 97
[2017-02-20] MEDS: HYOSCYAMINE SOLN 0.125 MG/ML 15 ML BTL PEG PRN (20:08)
[2017-02-20] MEDS: QUEtiapine FUMARATE 25 MG TAB PO SCH (20:08)
[2017-02-21] MEDS: azaTHIOprine 50 MG TAB PEG SCH ×2 (05:31→17:00)
[2017-02-21] MEDS: LACTOBACILLUS ACIDOPHILUS TAB PEG SCH ×2 (08:14→21:00)
[2017-02-21] MEDS: ENOXAPARIN SODIUM 40 MG/0.4 ML SYRINGE SQ SCH (08:14)
[2017-02-21] MEDS: FLUoxetine HCL LIQUID 20 MG/5 ML CUP PEG SCH (08:14)
[2017-02-21] MEDS: predniSONE 20 MG TAB PEG SCH (08:14)
[2017-02-21] MEDS: ONDANSETRON HCL 4 MG/5 ML UDC PEG PRN (08:14)
[2017-02-21] MEDS: LANSOPRAZOLE SOLUTAB 30 MG TAB PEG SCH ×2 (08:15→21:00)
[2017-02-21] MEDS: SENNOSIDES SYRUP 8.8 MG/5 ML CUP PEG SCH (08:15)
[2017-02-21] MEDS: JUVEN POWDER 1 PACK G-TUBE SCH ×2 (08:16→21:00)
[2017-02-21] MEDS: LACTIC ACID (AMMONIUM LACTATE) 12% LOTION 225 GM BTL TOPICAL SCH ×2 (08:16→21:00)
--- NOTE | 2017-02-21 11:49 | HHI.PR ---
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 Patient lying in bed, resting carefully. Denies any new complaints. No change in clinical status. Objective Vitals Vital Signs Date Time Temp Pulse Resp B/P (MAP) Pulse Ox O2 Delivery O2 Flow Rate FiO2 02/20/17 20:00 96.8 80 18 107/87 (94) 97 I/O 02/20/17 02/20/17 02/20/17 02/21/17 02/21/17 02/21/17 06:59 14:59 22:59 06:59 14:59 22:59 Intake Total 960 ml 2101 ml 742 ml Output Total 750 ml 800 ml Balance -750 ml 960 ml 2101 ml -58 ml Intake Oral 0 ml Tube Feeding 600 ml 1241 ml 444 ml Other 360 ml 860 ml 298 ml Output Urine Total 750 ml 800 ml # Bowel Movements 0 Result Diagram: 02/19/17 0610 Objective Remarks GENERAL: Well-developed, cachectic and contracted. HEENT: Head is normocephalic without any lesions or masses noted. Facial features are symmetric. Eyes: Extraocular muscles are intact. Conjunctivae were clear. NECK: Trachea midline no deviation. CARDIAC: Regular rhythm, tachycardia noted. S1/S2 are heard. No murmurs gallops or rubs. LUNGS: Clear to auscultation bilaterally. No wheeze, rhonchi or rales. No use of accessory muscles on inspiration or expiration. ABDOMEN: Soft, nontender. Nondistended. Bowel sounds heard in all 4 quadrants. No organomegaly or masses. Negative rebound, negative guarding. PEG tube noted without any excoriation. EXTREMITIES: No edema, pulses are equal bilaterally. No cyanosis or clubbing. Ulceration noted over his left lower extremity lateral malleolus Procedures 07/19/16 EGD with PEG tube placement 09/27/16 colonoscopy Urinary Catheter: Yes Assessment to: Continue Kowalski insert reason: Prolonged Immobilization Date of Insertion: Feb 01, 2017 Vascular Central Line Catheter: No A/P Assessment and Plan Neuro-Behcet, history of frontal lobe CVA, encephalopathy, history of meningitis , Blurred vision/double vision, urinary retention, chronic No new changes on imaging. Patient was followed by neurology. Aphasic at baseline. 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 Questionable hospital-acquired pneumonia/aspiration Patient remains asymptomatic, no fever, no leukocytosis, no significant tachycardia, no hypoxia Chest x-ray indicates minimal bibasilar densities greater right lower lobe Status post Levaquin 750 mg by mouth for 7 days Continue Lactinex Duo nebs Status post normal saline nebulizer for 3 days Decreased oral intake and dysphagia on initial presentation Speech therapy following intermittently. S/P barium swallow. Patient with severe dysphagia. GI was consulted and PEG tube was placed. Nursing staff indicates patient was having bolus feeding intolerance Dietary reconsulted and made recommendations Coccyx decubitus. Ankle ulceration Wound care nurse is following the patient for management Patient with specialty bed Mood disorder, depression Patient was evaluated by psychiatrist. Prozac 40 mg daily Seroquel 25 mg at bedtime Diabetes Glucose continues to be well controlled, Accu-Cheks and insulin were restarted, and subsequently discontinued DVT Prophylaxis: Lovenox, TEDs/SCDs. Discharge Planning Case management for discharge planning, recent records indicate that planning on transferring back to [place], Ede Richardson Feb 21, 2017 11:49
[2017-02-21 12:57] VITALS: BP 98/76; PULSE 85; RESP 16; TEMP 96.1; O2SAT 99
[2017-02-21 20:00] VITALS: BP 101/88; PULSE 81; RESP 20; TEMP 96.8; O2SAT 98
[2017-02-21] MEDS: QUEtiapine FUMARATE 25 MG TAB PO SCH (21:00)
[2017-02-22] MEDS: azaTHIOprine 50 MG TAB PEG SCH ×2 (05:34→17:42)
[2017-02-22 08:00] VITALS: BP 100/87; PULSE 87; RESP 16; TEMP 97.7; O2SAT 98
[2017-02-22] MEDS: FLUoxetine HCL LIQUID 20 MG/5 ML CUP PEG SCH (08:41)
[2017-02-22] MEDS: LACTOBACILLUS ACIDOPHILUS TAB PEG SCH ×2 (08:41→20:05)
[2017-02-22] MEDS: LANSOPRAZOLE SOLUTAB 30 MG TAB PEG SCH ×2 (08:41→20:04)
[2017-02-22] MEDS: SENNOSIDES SYRUP 8.8 MG/5 ML CUP PEG SCH (08:41)
[2017-02-22] MEDS: predniSONE 20 MG TAB PEG SCH (08:42)
[2017-02-22] MEDS: ENOXAPARIN SODIUM 40 MG/0.4 ML SYRINGE SQ SCH (08:42)
[2017-02-22] MEDS: LACTIC ACID (AMMONIUM LACTATE) 12% LOTION 225 GM BTL TOPICAL SCH ×2 (08:42→20:07)
[2017-02-22] MEDS: JUVEN POWDER 1 PACK G-TUBE SCH ×3 (08:43→20:03)
--- NOTE | 2017-02-22 12:44 | HHI.PR ---
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 Patient does not indicate any new complaints. No change in clinical status. Awaiting case management for discharge planning Objective Vitals Vital Signs Date Time Temp Pulse Resp B/P (MAP) Pulse Ox O2 Delivery O2 Flow Rate FiO2 02/22/17 09:43 21 02/22/17 08:00 97.7 87 16 100/87 (91) 98 02/21/17 20:00 96.8 81 20 101/88 (92) 98 02/21/17 12:57 96.1 85 16 98/76 (83) 99 I/O 02/21/17 02/21/17 02/21/17 02/22/17 02/22/17 02/22/17 07:00 15:00 23:00 07:00 15:00 23:00 Intake Total 742 ml 1000 ml 0 ml Output Total 800 ml 700 ml 600 ml Balance -58 ml 300 ml -600 ml Intake Oral 0 ml 0 ml Tube Feeding 444 ml 600 ml Other 298 ml 400 ml Output Urine Total 800 ml 700 ml 600 ml # Bowel Movements 1 Result Diagram: 02/19/17 0610 Objective Remarks GENERAL: Well-developed, cachectic and contracted. HEENT: Head is normocephalic without any lesions or masses noted. Facial features are symmetric. Eyes: Extraocular muscles are intact. Conjunctivae were clear. NECK: Trachea midline no deviation. CARDIAC: Regular rhythm, tachycardia noted. S1/S2 are heard. No murmurs gallops or rubs. LUNGS: Clear to auscultation bilaterally. No wheeze, rhonchi or rales. No use of accessory muscles on inspiration or expiration. ABDOMEN: Soft, nontender. Nondistended. Bowel sounds heard in all 4 quadrants. No organomegaly or masses. Negative rebound, negative guarding. PEG tube noted without any excoriation. EXTREMITIES: No edema, pulses are equal bilaterally. No cyanosis or clubbing. Ulceration noted over his left lower extremity lateral malleolus Procedures 07/19/16 EGD with PEG tube placement 09/27/16 colonoscopy Urinary Catheter: Yes Assessment to: Continue Kowalski insert reason: Obstruction/Retention Date of Insertion: Feb 01, 2017 Vascular Central Line Catheter: No A/P Assessment and Plan Neuro-Behcet, history of frontal lobe CVA, encephalopathy, history of meningitis , Blurred vision/double vision, urinary retention, chronic No new changes on imaging. Patient was followed by neurology. Aphasic at baseline. 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 Questionable hospital-acquired pneumonia/aspiration, resolved Patient remains asymptomatic, no fever, no leukocytosis, no significant tachycardia, no hypoxia Chest x-ray indicates minimal bibasilar densities greater right lower lobe Status post Levaquin 750 mg by mouth for 7 days Continue Lactinex Duo nebs Status post normal saline nebulizer for 3 days Decreased oral intake and dysphagia on initial presentation Speech therapy following intermittently. S/P barium swallow. Patient with severe dysphagia. GI was consulted and PEG tube was placed. Nursing staff indicates patient was having bolus feeding intolerance Dietary reconsulted and made recommendations Coccyx decubitus. Ankle ulceration Wound care nurse is following the patient for management Patient with specialty bed Mood disorder, depression Patient was evaluated by psychiatrist. Prozac 40 mg daily Seroquel 25 mg at bedtime Diabetes Glucose continues to be well controlled, Accu-Cheks and insulin were restarted, and subsequently discontinued DVT Prophylaxis: Lovenox, TEDs/SCDs. Discharge Planning Case management for discharge planning, recent records indicate that planning on transferring back to [place], Ede Richardson Feb 22, 2017 12:44
[2017-02-22 20:00] VITALS: BP 109/92; PULSE 69; RESP 18; TEMP 95.9; O2SAT 96
[2017-02-22] MEDS: QUEtiapine FUMARATE 25 MG TAB PO SCH (20:04)
[2017-02-23] MEDS: azaTHIOprine 50 MG TAB PEG SCH ×2 (06:11→17:57)
[2017-02-23 08:00] VITALS: BP 133/80; PULSE 80; RESP 18; TEMP 97.9; O2SAT 95
[2017-02-23] MEDS: JUVEN POWDER 1 PACK G-TUBE SCH ×2 (09:00→21:16)
[2017-02-23] MEDS: FLUoxetine HCL LIQUID 20 MG/5 ML CUP PEG SCH (09:06)
[2017-02-23] MEDS: LACTOBACILLUS ACIDOPHILUS TAB PEG SCH ×2 (09:06→21:16)
[2017-02-23] MEDS: SENNOSIDES SYRUP 8.8 MG/5 ML CUP PEG SCH (09:06)
[2017-02-23] MEDS: predniSONE 20 MG TAB PEG SCH (09:06)
[2017-02-23] MEDS: LANSOPRAZOLE SOLUTAB 30 MG TAB PEG SCH ×2 (09:06→21:16)
[2017-02-23] MEDS: LACTIC ACID (AMMONIUM LACTATE) 12% LOTION 225 GM BTL TOPICAL SCH ×2 (09:07→21:16)
[2017-02-23] MEDS: ENOXAPARIN SODIUM 40 MG/0.4 ML SYRINGE SQ SCH (09:07)
--- NOTE | 2017-02-23 10:45 | HHI.PR ---
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 Patient denies any new complaints. No change in clinical status. Awaiting case management for discharge planning. Objective Vitals Vital Signs Date Time Temp Pulse Resp B/P (MAP) Pulse Ox O2 Delivery O2 Flow Rate FiO2 02/23/17 08:00 97.9 80 18 133/80 (97) 95 02/22/17 20:00 95.9 69 18 109/92 (98) 96 I/O 02/22/17 02/22/17 02/22/17 02/23/17 02/23/17 02/23/17 06:59 14:59 22:59 06:59 14:59 22:59 Intake Total 0 ml 1111 ml 0 ml Output Total 600 ml 200 ml 350 ml 700 ml Balance -600 ml -200 ml 761 ml -700 ml Intake Oral 0 ml 0 ml Tube Feeding 711 ml Tube Irrigant 400 ml Output Urine Total 600 ml 200 ml 350 ml 700 ml # Bowel Movements 1 1 1 Result Diagram: 02/19/17 0610 Objective Remarks GENERAL: Well-developed, cachectic and contracted. HEENT: Head is normocephalic without any lesions or masses noted. Facial features are symmetric. Eyes: Extraocular muscles are intact. Conjunctivae were clear. NECK: Trachea midline no deviation. CARDIAC: Regular rhythm, tachycardia noted. S1/S2 are heard. No murmurs gallops or rubs. LUNGS: Clear to auscultation bilaterally. No wheeze, rhonchi or rales. No use of accessory muscles on inspiration or expiration. ABDOMEN: Soft, nontender. Nondistended. Bowel sounds heard in all 4 quadrants. No organomegaly or masses. Negative rebound, negative guarding. PEG tube noted without any excoriation. EXTREMITIES: No edema, pulses are equal bilaterally. No cyanosis or clubbing. Ulceration noted over his left lower extremity lateral malleolus Procedures 07/19/16 EGD with PEG tube placement 09/27/16 colonoscopy Urinary Catheter: Yes Assessment to: Continue Kowalski insert reason: Obstruction/Retention Date of Insertion: Feb 01, 2017 Vascular Central Line Catheter: No A/P Assessment and Plan Neuro-Behcet, history of frontal lobe CVA, encephalopathy, history of meningitis , Blurred vision/double vision, urinary retention, chronic No new changes on imaging. Patient was followed by neurology. Aphasic at baseline. 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 Questionable hospital-acquired pneumonia/aspiration, resolved Patient remains asymptomatic, no fever, no leukocytosis, no significant tachycardia, no hypoxia Chest x-ray indicates minimal bibasilar densities greater right lower lobe Status post Levaquin 750 mg by mouth for 7 days Continue Lactinex Continue Duo nebs as needed Status post normal saline nebulizer for 3 days Decreased oral intake and dysphagia on initial presentation Speech therapy following intermittently. S/P barium swallow. Patient with severe dysphagia. GI was consulted and PEG tube was placed. Nursing staff indicates patient was having bolus feeding intolerance Dietary reconsulted and made recommendations Coccyx decubitus. Ankle ulceration Wound care nurse is following the patient for management Patient with specialty bed Mood disorder, depression Patient was evaluated by psychiatrist. Prozac 40 mg daily Seroquel 25 mg at bedtime Diabetes Glucose continues to be well controlled, Accu-Cheks and insulin were restarted, and subsequently discontinued DVT Prophylaxis: Lovenox, TEDs/SCDs. Discharge Planning Case management for discharge planning, recent records indicate that planning on transferring back to [place], Ede Richardson Feb 23, 2017 10:45
--- NOTE | 2017-02-23 17:09 | PD.WCN.NOT ---
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 Additional Information: Patient seen on 5th floor [facility] for follow up of stage 4 pressure injuries sacrum / coccyx wound and R lateral Malleolus wound. Patient positioned to L side for wound assessment with the assistance of personal lines underwriter to reveal a large amount of liquid brown stool. Cleansed patient with soap and water to reveal Sacral/ Coccyx wound that is open to air. Wound bed presents with 100% beefy red granulation tissue and moist wound bed. Wound has minimal sero-sanguinous drainage without odor and well defined wound margins. Scar tissue is noted to periwound that is otherwise unremarkable.Cleansed wound with normal saline.Wound measurements are as follows: 1cm x 0.8cm cm x 0.3cm. Wound is noted without tunneling or undermining. Applied slightly moistened Maxorb extra AG to wound bed and covered with bordered gauze. Applied skin prep before applying bordered gauze dressing. Wound to R lateral malleolus noted with slightly displaced bordered dressing that was changed yesterday. Peel back bordered gauze dressing and Calcium alginate AG dressing in place to reveal wound.Cleansed wound with normal saline. Wound bed is noted with 100% beefy red tissue . Cleansed wound with normal saline.Wound measures 1.2cmx 1.4cm x 0.2cm.Wound margins are unattached from 4 to 8 o'clock.Periwound is noted with newly formed scar tissue and hyperkeratotic tissue between 8 and 9 o'clock. Wound bed is moist with minimal serous drainage that is without odor. Reapplied Maxorb AG and adhesive foam dressing back in place. Dressing change is due tomorrow. Arleen Gibbs [facility] Feb 23, 2017 17:09
[2017-02-23 20:00] VITALS: BP 110/85; PULSE 76; RESP 18; TEMP 96.3; O2SAT 98
[2017-02-23] MEDS: QUEtiapine FUMARATE 25 MG TAB PO SCH (21:16)
[2017-02-24] MEDS: azaTHIOprine 50 MG TAB PEG SCH ×2 (05:59→18:39)
[2017-02-24 08:00] VITALS: BP 96/70; PULSE 90; RESP 20; TEMP 97.3; O2SAT 95
[2017-02-24] MEDS: predniSONE 20 MG TAB PEG SCH (09:31)
[2017-02-24] MEDS: LACTOBACILLUS ACIDOPHILUS TAB PEG SCH ×2 (09:31→21:58)
[2017-02-24] MEDS: LANSOPRAZOLE SOLUTAB 30 MG TAB PEG SCH ×2 (09:31→21:59)
[2017-02-24] MEDS: FLUoxetine HCL LIQUID 20 MG/5 ML CUP PEG SCH (09:32)
[2017-02-24] MEDS: SENNOSIDES SYRUP 8.8 MG/5 ML CUP PEG SCH (09:32)
[2017-02-24] MEDS: ENOXAPARIN SODIUM 40 MG/0.4 ML SYRINGE SQ SCH (09:32)
[2017-02-24] MEDS: LACTIC ACID (AMMONIUM LACTATE) 12% LOTION 225 GM BTL TOPICAL SCH ×2 (09:58→21:58)
[2017-02-24] MEDS: JUVEN POWDER 1 PACK G-TUBE SCH ×2 (09:59→21:00)
--- NOTE | 2017-02-24 11:12 | HHI.PR ---
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 Patient denies any new complaints. No change in clinical status. Awaiting case management for discharge planning. Objective Vitals Vital Signs Date Time Temp Pulse Resp B/P (MAP) Pulse Ox O2 Delivery O2 Flow Rate FiO2 02/24/17 08:00 97.3 90 20 96/70 (79) 95 02/23/17 20:00 96.3 76 18 110/85 (93) 98 I/O 02/23/17 02/23/17 02/23/17 02/24/17 02/24/17 02/24/17 06:59 14:59 22:59 06:59 14:59 22:59 Intake Total 0 ml 440 ml 1734 ml Output Total 700 ml 750 ml 950 ml Balance -700 ml -310 ml 784 ml Intake Oral 0 ml Tube Feeding 1334 ml Other 440 ml 400 ml Output Urine Total 700 ml 750 ml 950 ml # Bowel Movements 1 Objective Remarks GENERAL: Well-developed, cachectic and contracted. HEENT: Head is normocephalic without any lesions or masses noted. Facial features are symmetric. Eyes: Extraocular muscles are intact. Conjunctivae were clear. NECK: Trachea midline no deviation. CARDIAC: Regular rhythm, tachycardia noted. S1/S2 are heard. No murmurs gallops or rubs. LUNGS: Clear to auscultation bilaterally. No wheeze, rhonchi or rales. No use of accessory muscles on inspiration or expiration. ABDOMEN: Soft, nontender. Nondistended. Bowel sounds heard in all 4 quadrants. No organomegaly or masses. Negative rebound, negative guarding. PEG tube noted without any excoriation. EXTREMITIES: No edema, pulses are equal bilaterally. No cyanosis or clubbing. Ulceration noted over his left lower extremity lateral malleolus Procedures 07/19/16 EGD with PEG tube placement 09/27/16 colonoscopy Urinary Catheter: Yes Assessment to: Continue Kowalski insert reason: Obstruction/Retention Date of Insertion: Feb 01, 2017 Vascular Central Line Catheter: No A/P Assessment and Plan Neuro-Behcet, history of frontal lobe CVA, encephalopathy, history of meningitis , Blurred vision/double vision, urinary retention, chronic No new changes on imaging. Patient was followed by neurology. Aphasic at baseline. 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 Decreased oral intake and dysphagia on initial presentation Speech therapy following intermittently. S/P barium swallow. Patient with severe dysphagia. GI was consulted and PEG tube was placed. Nursing staff indicates patient was having bolus feeding intolerance Dietary reconsulted and made recommendations Coccyx decubitus. Ankle ulceration Wound care nurse is following the patient for management Patient with specialty bed Mood disorder, depression Patient was evaluated by psychiatrist. Prozac 40 mg daily Seroquel 25 mg at bedtime Questionable hospital-acquired pneumonia/aspiration, resolved Patient remains asymptomatic, no fever, no leukocytosis, no significant tachycardia, no hypoxia Chest x-ray indicates minimal bibasilar densities greater right lower lobe Status post Levaquin 750 mg by mouth for 7 days Continue Lactinex Continue Duo nebs as needed Status post normal saline nebulizer for 3 days Diabetes Glucose continues to be well controlled, Accu-Cheks and insulin were restarted, and subsequently discontinued DVT Prophylaxis: Lovenox, TEDs/SCDs. Discharge Planning Case management for discharge planning, recent records indicate that planning on transferring back to [place], Ede Richardson Feb 24, 2017 11:12
[2017-02-24 20:00] VITALS: BP 106/91; PULSE 72; RESP 16; TEMP 96.2; O2SAT 98
[2017-02-24] MEDS: QUEtiapine FUMARATE 25 MG TAB PO SCH (21:58)
[2017-02-25] MEDS: azaTHIOprine 50 MG TAB PEG SCH ×2 (06:08→17:40)
--- NOTE | 2017-02-25 08:37 | HHI.PR ---
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 Patient denies any new complaints. No change in clinical status. Awaiting case management for discharge planning. Objective Vitals Vital Signs Date Time Temp Pulse Resp B/P (MAP) Pulse Ox O2 Delivery O2 Flow Rate FiO2 02/24/17 20:00 96.2 72 16 106/91 (96) 98 I/O 02/24/17 02/24/17 02/24/17 02/25/17 02/25/17 02/25/17 07:00 15:00 23:00 07:00 15:00 23:00 Intake Total 1734 ml 250 ml 1100 ml Output Total 950 ml 1250 ml 375 ml Balance 784 ml 250 ml -150 ml -375 ml Tube Feeding 1334 ml 600 ml Other 400 ml 250 ml 500 ml Output Urine Total 950 ml 1250 ml 375 ml # Bowel Movements 1 0 Objective Remarks GENERAL: Well-developed, cachectic and contracted. HEENT: Head is normocephalic without any lesions or masses noted. Facial features are symmetric. Eyes: Extraocular muscles are intact. Conjunctivae were clear. NECK: Trachea midline no deviation. CARDIAC: Regular rhythm, tachycardia noted. S1/S2 are heard. No murmurs gallops or rubs. LUNGS: Clear to auscultation bilaterally. No wheeze, rhonchi or rales. No use of accessory muscles on inspiration or expiration. ABDOMEN: Soft, nontender. Nondistended. Bowel sounds heard in all 4 quadrants. No organomegaly or masses. Negative rebound, negative guarding. PEG tube noted without any excoriation. EXTREMITIES: No edema, pulses are equal bilaterally. No cyanosis or clubbing. Ulceration noted over his left lower extremity lateral malleolus Procedures 07/19/16 EGD with PEG tube placement 09/27/16 colonoscopy Urinary Catheter: No Date of Insertion: Feb 01, 2017 Vascular Central Line Catheter: No A/P Assessment and Plan Neuro-Behcet, history of frontal lobe CVA, encephalopathy, history of meningitis , Blurred vision/double vision, urinary retention, chronic No new changes on imaging. Patient was followed by neurology. Aphasic at baseline. 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 Decreased oral intake and dysphagia on initial presentation Speech therapy following intermittently. S/P barium swallow. Patient with severe dysphagia. GI was consulted and PEG tube was placed. Nursing staff indicates patient was having bolus feeding intolerance Dietary reconsulted and made recommendations Coccyx decubitus. Ankle ulceration Wound care nurse is following the patient for management Patient with specialty bed Mood disorder, depression Patient was evaluated by psychiatrist. Prozac 40 mg daily Seroquel 25 mg at bedtime Questionable hospital-acquired pneumonia/aspiration, resolved Patient remains asymptomatic, no fever, no leukocytosis, no significant tachycardia, no hypoxia Chest x-ray indicates minimal bibasilar densities greater right lower lobe Status post Levaquin 750 mg by mouth for 7 days Continue Lactinex Continue Duo nebs as needed Status post normal saline nebulizer for 3 days Diabetes Glucose continues to be well controlled, Accu-Cheks and insulin were restarted, and subsequently discontinued DVT Prophylaxis: Lovenox, TEDs/SCDs. Discharge Planning Case management for discharge planning, recent records indicate that planning on transferring back to [place], Ede Richardson Feb 25, 2017 08:37
[2017-02-25 08:51] VITALS: BP 112/73; PULSE 100; RESP 18; TEMP 98.1; O2SAT 100
[2017-02-25] MEDS: JUVEN POWDER 1 PACK G-TUBE SCH ×2 (09:00→21:00)
[2017-02-25] MEDS: FLUoxetine HCL LIQUID 20 MG/5 ML CUP PEG SCH (09:41)
[2017-02-25] MEDS: LACTOBACILLUS ACIDOPHILUS TAB PEG SCH ×2 (09:41→20:44)
[2017-02-25] MEDS: SENNOSIDES SYRUP 8.8 MG/5 ML CUP PEG SCH (09:42)
[2017-02-25] MEDS: ARTIFICIAL TEARS OPTH SOLN 15 ML BTL EACH EYE PRN (09:42)
[2017-02-25] MEDS: LANSOPRAZOLE SOLUTAB 30 MG TAB PEG SCH ×2 (09:42→20:44)
[2017-02-25] MEDS: ENOXAPARIN SODIUM 40 MG/0.4 ML SYRINGE SQ SCH (09:42)
[2017-02-25] MEDS: predniSONE 20 MG TAB PEG SCH (09:42)
[2017-02-25] MEDS: LACTIC ACID (AMMONIUM LACTATE) 12% LOTION 225 GM BTL TOPICAL SCH ×2 (09:43→20:45)
[2017-02-25 20:00] VITALS: BP 111/87; PULSE 86; RESP 16; TEMP 96.9; O2SAT 99
[2017-02-25] MEDS: QUEtiapine FUMARATE 25 MG TAB PO SCH (20:44)
[2017-02-26] MEDS: azaTHIOprine 50 MG TAB PEG SCH ×2 (05:15→18:40)
[2017-02-26 08:37] VITALS: BP 98/74; PULSE 93; RESP 16; TEMP 97.1; O2SAT 100
[2017-02-26] MEDS: JUVEN POWDER 1 PACK G-TUBE SCH ×2 (09:00→21:00)
[2017-02-26] MEDS: SENNOSIDES SYRUP 8.8 MG/5 ML CUP PEG SCH (09:22)
[2017-02-26] MEDS: FLUoxetine HCL LIQUID 20 MG/5 ML CUP PEG SCH (09:22)
[2017-02-26] MEDS: ENOXAPARIN SODIUM 40 MG/0.4 ML SYRINGE SQ SCH (09:22)
[2017-02-26] MEDS: LACTOBACILLUS ACIDOPHILUS TAB PEG SCH ×2 (09:22→21:06)
[2017-02-26] MEDS: predniSONE 20 MG TAB PEG SCH (09:23)
[2017-02-26] MEDS: LACTIC ACID (AMMONIUM LACTATE) 12% LOTION 225 GM BTL TOPICAL SCH ×2 (09:23→21:07)
[2017-02-26] MEDS: LANSOPRAZOLE SOLUTAB 30 MG TAB PEG SCH ×2 (09:23→21:06)
--- NOTE | 2017-02-26 13:57 | HHI.PR ---
Subjective Remarks Patient seen and examined today. Patient denies any new complaints. No change in clinical status. Objective Vitals Vital Signs Date Time Temp Pulse Resp B/P (MAP) Pulse Ox O2 Delivery O2 Flow Rate FiO2 02/26/17 08:37 97.1 93 16 98/74 (82) 100 02/25/17 20:00 96.9 86 16 111/87 (95) 99 I/O 02/25/17 02/25/17 02/25/17 02/26/17 02/26/17 02/26/17 07:00 15:00 23:00 07:00 15:00 23:00 Intake Total 600 ml Output Total 375 ml 400 ml 800 ml 400 ml Balance -375 ml 200 ml -800 ml -400 ml Tube Feeding 350 ml Other 250 ml Output Urine Total 375 ml 400 ml 800 ml 400 ml # Voids 0 # Bowel Movements 0 0 0 Objective Remarks GENERAL: Well-developed, cachectic and contracted. HEENT: Head is normocephalic without any lesions or masses noted. Facial features are symmetric. Eyes: Extraocular muscles are intact. Conjunctivae were clear. NECK: Trachea midline no deviation. CARDIAC: Regular rhythm, tachycardia noted. S1/S2 are heard. No murmurs gallops or rubs. LUNGS: Clear to auscultation bilaterally. No wheeze, rhonchi or rales. No use of accessory muscles on inspiration or expiration. ABDOMEN: Soft, nontender. Nondistended. Bowel sounds heard in all 4 quadrants. No organomegaly or masses. Negative rebound, negative guarding. PEG tube noted without any excoriation. EXTREMITIES: No edema, pulses are equal bilaterally. No cyanosis or clubbing. Ulceration noted over his left lower extremity lateral malleolus Procedures 07/19/16 EGD with PEG tube placement 09/27/16 colonoscopy Urinary Catheter: Yes Assessment to: Continue Kowalski insert reason: Obstruction/Retention Date of Insertion: Feb 01, 2017 Vascular Central Line Catheter: No A/P Assessment and Plan Neuro-Behcet, history of frontal lobe CVA, encephalopathy, history of meningitis , Blurred vision/double vision, urinary retention, chronic No new changes on imaging. Patient was followed by neurology. Aphasic at baseline. 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 Decreased oral intake and dysphagia on initial presentation Speech therapy following intermittently. S/P barium swallow. Patient with severe dysphagia. GI was consulted and PEG tube was placed. Nursing staff indicates patient was having bolus feeding intolerance Dietary reconsulted and made recommendations Coccyx decubitus. Ankle ulceration Wound care nurse is following the patient for management Patient with specialty bed Mood disorder, depression Patient was evaluated by psychiatrist. Prozac 40 mg daily Seroquel 25 mg at bedtime Questionable hospital-acquired pneumonia/aspiration, resolved Patient remains asymptomatic, no fever, no leukocytosis, no significant tachycardia, no hypoxia Chest x-ray indicates minimal bibasilar densities greater right lower lobe Status post Levaquin 750 mg by mouth for 7 days Continue Lactinex Continue Duo nebs as needed Status post normal saline nebulizer for 3 days Diabetes Glucose continues to be well controlled, Accu-Cheks and insulin were restarted, and subsequently discontinued DVT Prophylaxis: Lovenox, TEDs/SCDs. Discharge Planning Case management for discharge planning, recent records indicate that planning on transferring back to [place], Ede Richardson Feb 26, 2017 13:57
[2017-02-26 19:33] VITALS: O2SAT 94
[2017-02-26 20:00] VITALS: BP 117/83; PULSE 83; RESP 16; TEMP 97; O2SAT 99
[2017-02-26] MEDS: QUEtiapine FUMARATE 25 MG TAB PO SCH (21:07)
[2017-02-27] MEDS: azaTHIOprine 50 MG TAB PEG SCH ×2 (05:09→17:44)
[2017-02-27 08:10] VITALS: BP 135/74; PULSE 96; RESP 16; TEMP 98; O2SAT 97
[2017-02-27] MEDS: LACTOBACILLUS ACIDOPHILUS TAB PEG SCH ×2 (08:18→20:34)
[2017-02-27] MEDS: LANSOPRAZOLE SOLUTAB 30 MG TAB PEG SCH ×2 (08:18→20:34)
[2017-02-27] MEDS: predniSONE 20 MG TAB PEG SCH (08:18)
[2017-02-27] MEDS: ENOXAPARIN SODIUM 40 MG/0.4 ML SYRINGE SQ SCH (08:19)
[2017-02-27] MEDS: LACTIC ACID (AMMONIUM LACTATE) 12% LOTION 225 GM BTL TOPICAL SCH ×2 (08:19→20:35)
[2017-02-27] MEDS: FLUoxetine HCL LIQUID 20 MG/5 ML CUP PEG SCH (08:19)
[2017-02-27] MEDS: SENNOSIDES SYRUP 8.8 MG/5 ML CUP PEG SCH (08:19)
[2017-02-27] MEDS: JUVEN POWDER 1 PACK G-TUBE SCH ×2 (08:20→20:44)
--- NOTE | 2017-02-27 10:39 | HHI.PR ---
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 Patient lying in bed comfortably. Patient denies any new complaints. No change in clinical status. 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 Objective Vitals Vital Signs Date Time Temp Pulse Resp B/P (MAP) Pulse Ox O2 Delivery O2 Flow Rate FiO2 02/27/17 08:10 98.0 96 16 135/74 (94) 97 02/26/17 20:00 97.0 83 16 117/83 (94) 99 02/26/17 19:33 94 21 I/O 02/26/17 02/26/17 02/26/17 02/27/17 02/27/17 02/27/17 07:00 15:00 23:00 07:00 15:00 23:00 Intake Total 996 ml Output Total 400 ml 650 ml 500 ml Balance -400 ml 346 ml -500 ml Tube Feeding 600 ml Other 396 ml Output Urine Total 400 ml 650 ml 500 ml # Voids 0 # Bowel Movements 0 0 0 Objective Remarks GENERAL: Well-developed, cachectic and contracted. HEENT: Head is normocephalic without any lesions or masses noted. Facial features are symmetric. Eyes: Extraocular muscles are intact. Conjunctivae were clear. NECK: Trachea midline no deviation. CARDIAC: Regular rhythm, tachycardia noted. S1/S2 are heard. No murmurs gallops or rubs. LUNGS: Clear to auscultation bilaterally. No wheeze, rhonchi or rales. No use of accessory muscles on inspiration or expiration. ABDOMEN: Soft, nontender. Nondistended. Bowel sounds heard in all 4 quadrants. No organomegaly or masses. Negative rebound, negative guarding. PEG tube noted without any excoriation. EXTREMITIES: No edema, pulses are equal bilaterally. No cyanosis or clubbing. Ulceration noted over his left lower extremity lateral malleolus Procedures 07/19/16 EGD with PEG tube placement 09/27/16 colonoscopy Urinary Catheter: Yes Assessment to: Continue Kowalski insert reason: Obstruction/Retention Date of Insertion: Feb 01, 2017 Vascular Central Line Catheter: No A/P Assessment and Plan Neuro-Behcet, history of frontal lobe CVA, encephalopathy, history of meningitis , Blurred vision/double vision, urinary retention, chronic No new changes on imaging. Patient was followed by neurology. Aphasic at baseline. 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 Decreased oral intake and dysphagia on initial presentation Speech therapy following intermittently. S/P barium swallow. Patient with severe dysphagia. GI was consulted and PEG tube was placed. Nursing staff indicates patient was having bolus feeding intolerance Dietary reconsulted and made recommendations Coccyx decubitus. Ankle ulceration Wound care nurse is following the patient for management Patient with specialty bed Mood disorder, depression Patient was evaluated by psychiatrist. Prozac 40 mg daily Seroquel 25 mg at bedtime Questionable hospital-acquired pneumonia/aspiration, resolved Patient remains asymptomatic, no fever, no leukocytosis, no significant tachycardia, no hypoxia Chest x-ray indicates minimal bibasilar densities greater right lower lobe Status post Levaquin 750 mg by mouth for 7 days Continue Lactinex Continue Duo nebs as needed Status post normal saline nebulizer for 3 days Diabetes Glucose continues to be well controlled, DVT Prophylaxis: Lovenox, TEDs/SCDs. Discharge Planning Case management for discharge planning, recent records indicate that planning on transferring back to [place], Ede Richardson Feb 27, 2017 10:39
[2017-02-27 20:00] VITALS: BP 103/83; PULSE 85; RESP 20; TEMP 97.9; O2SAT 98
[2017-02-27] MEDS: QUEtiapine FUMARATE 25 MG TAB PO SCH (20:34)
[2017-02-27 20:40] VITALS: O2SAT 98
[2017-02-28] MEDS: azaTHIOprine 50 MG TAB PEG SCH ×2 (05:50→18:14)
[2017-02-28 08:00] VITALS: O2SAT 95
[2017-02-28 08:33] VITALS: BP 105/74; PULSE 82; RESP 16; TEMP 98.3; O2SAT 99
[2017-02-28] MEDS: JUVEN POWDER 1 PACK G-TUBE SCH ×2 (08:57→20:13)
[2017-02-28] MEDS: predniSONE 20 MG TAB PEG SCH (08:59)
[2017-02-28] MEDS: LACTOBACILLUS ACIDOPHILUS TAB PEG SCH ×2 (08:59→20:08)
[2017-02-28] MEDS: FLUoxetine HCL LIQUID 20 MG/5 ML CUP PEG SCH (08:59)
[2017-02-28] MEDS: SENNOSIDES SYRUP 8.8 MG/5 ML CUP PEG SCH (09:00)
[2017-02-28] MEDS: LACTIC ACID (AMMONIUM LACTATE) 12% LOTION 225 GM BTL TOPICAL SCH ×2 (09:00→20:09)
[2017-02-28] MEDS: ENOXAPARIN SODIUM 40 MG/0.4 ML SYRINGE SQ SCH (09:00)
[2017-02-28] MEDS: LANSOPRAZOLE SOLUTAB 30 MG TAB PEG SCH ×2 (09:00→20:08)
--- NOTE | 2017-02-28 11:25 | HHI.PR ---
Subjective Remarks Follow-up for neuro Behet's syndrome. Patient denies any shortness of breath. Objective Vitals Vital Signs Date Time Temp Pulse Resp B/P (MAP) Pulse Ox O2 Delivery O2 Flow Rate FiO2 02/28/17 08:33 98.3 82 16 105/74 (84) 99 02/27/17 20:40 98 21 02/27/17 20:00 97.9 85 20 103/83 (90) 98 I/O 02/27/17 02/27/17 02/27/17 02/28/17 02/28/17 02/28/17 07:00 15:00 23:00 07:00 15:00 23:00 Intake Total 640 ml 835 ml 635 ml Output Total 500 ml 900 ml 550 ml Balance -500 ml 640 ml -65 ml 85 ml Tube Feeding 635 ml 435 ml Other 640 ml 200 ml 200 ml Output Urine Total 500 ml 900 ml 550 ml # Bowel Movements 0 0 0 Objective Remarks GENERAL: Thin patient in no apparent distress. CARDIOVASCULAR: Regular rate and rhythm. RESPIRATORY: Transmitted grunting sounds. GASTROINTESTINAL: Abdomen soft, non-tender, nondistended. PEG tube present. NEUROLOGICAL: Awake and alert. Nods head to answer questions. 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 (3) Sepsis ICD Code: A41.9 - Sepsis, unspecified organism Status: Resolved (4) Encephalopathy ICD Code: G93.40 - Encephalopathy, unspecified Status: Resolved (5) GI bleed ICD Code: K92.2 - Gastrointestinal hemorrhage, unspecified Status: Resolved (6) HCAP (healthcare-associated pneumonia) ICD Code: J18.9 - Pneumonia, unspecified organism Status: Resolved (7) UTI (urinary tract infection) ICD Code: N39.0 - Urinary tract infection, site not specified Status: Resolved (8) Leucocytosis ICD Code: D72.829 - Elevated white blood cell count, unspecified Status: Resolved (9) Fever ICD Code: R50.9 - Fever, unspecified Status: Resolved (10) Effusion of hip joint ICD Code: M25.459 - Effusion, unspecified hip Status: Acute (11) 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 Patient followed by neurology. Aphasic at baseline. Neurology following the patient Continue Imuran, prednisone EEG shows mild to moderate slowing at times of various depending on the epoch, there was no epileptic activity seen Continue PT/OT Palliative care following the patient and is still indicating the patient is making his own decisions, full code and full aggressive measures [place] as needed for pain. Blurred vision/Diplopia: Related to his neuro Behet's syndrome. -Ophthalmology evaluated patient on 01/11/17. 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 Recommends immunosuppressants and steroids which patient is currently on. Hospital acquired pneumonia: Stable -S/p Levaquin 750 mg x 7 days -Continue suctioning q6h -Continue Duonebs as needed Urinary retention: Stable. 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 -Monitor intake and output. -Patient will need to keep Kowalski in place as he is non-ambulatory. Change monthly. -Good urine output Diabetes: Stable HbA1c 6.6 on 09/25/16. Accu-checks and SSI were discontinued. SIRS/Sepsis, multiple episodes: Resolved. Coccyx decubitus wound: Wound culture with pseudo fluorescens/putida, group D enterococcus VRE which is sensitive to Zosyn. Patient did have one urine culture of Daphney parapsilosis, was treated with fluconazole for 10 days. Patient had episode of diarrhea, C. difficile cultures performed which was negative. Infectious disease consulted and last seen the patient on 10/18/16, at that time it was indicated to observe off antibiotics. 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 Would benefit from long-term steroids. Most recently treated for possible HAP on 02/05. Sinus tachycardia: Stable. S/p Lopressor TSH, free T3, free T4 were normal Melena, bright red blood in stool: Resolved Status post transfusion, emergently transferred to main hospital, emergent endoscopy GI evaluated and managed patient with emergent colonoscopy showing small ulcer in the colon Continue Prevacid Hemoglobin stable Hypotension: Stable -Lopressor discontinued on 01/02. Prerenal azotemia: Resolved. S/p IVF Hypernatremia and hyperchloremia: Resolved. Continue free water flushes 200 cc every 4 hours Hypokalemia with mild hypomagnesemia: Improved s/p repletion. Decreased oral intake and dysphagia on initial presentation Speech therapy following intermittently. S/P barium swallow. Patient with severe dysphagia. GI consulted and PEG tube was placed. Sales Support Specialist following. Due to vomiting tube feeding changed to low volume TwoCal HN, goal rate 50ml/hr. Free Water Flushes and additional free water flush with Maury bid. Coccyx decubitus: Wound care nurse is following. Continue to cleanse with normal saline and apply Maxorb AG just over wound beds cover with dry cover dressing and change every other day. Specialty bed Ankle ulcer: R lateral malleolus. -Foam boots. -Wound care nurse following. Continue to cleanse with normal saline and apply Maxorb AG just over wound beds cover with dry cover dressing and change every other day. Depression: Patient was evaluated by psychiatrist. Continue Prozac 40 mg daily and Seroquel 25 mg HS. Constipation: Improved. Continue scheduled Senna and Miralax prn. DVT Prophylaxis: Lovenox, TEDs/SCDs. Discharge Planning 01/27: manager supply chain planning called [facility] following up on assistance plan to transfer patient there, awaiting return call. 02/10: CM still awaiting call back. Problem Qualifiers (1) GI bleed: (2) UTI (urinary tract infection): (3) Effusion of hip joint: Mari Talamantes Feb 28, 2017 11:25
[2017-02-28 20:00] VITALS: BP 104/73; PULSE 77; RESP 20; TEMP 97.6; O2SAT 100
[2017-02-28] MEDS: QUEtiapine FUMARATE 25 MG TAB PO SCH (20:08)
[2017-03-01] MEDS: azaTHIOprine 50 MG TAB PEG SCH ×2 (04:56→16:27)
[2017-03-01] MEDS: FLUoxetine HCL LIQUID 20 MG/5 ML CUP PEG SCH (07:53)
[2017-03-01] MEDS: LANSOPRAZOLE SOLUTAB 30 MG TAB PEG SCH ×2 (07:53→20:25)
[2017-03-01] MEDS: LACTOBACILLUS ACIDOPHILUS TAB PEG SCH ×2 (07:53→20:25)
[2017-03-01] MEDS: predniSONE 20 MG TAB PEG SCH (07:53)
[2017-03-01] MEDS: LACTIC ACID (AMMONIUM LACTATE) 12% LOTION 225 GM BTL TOPICAL SCH ×2 (07:54→20:26)
[2017-03-01] MEDS: ENOXAPARIN SODIUM 40 MG/0.4 ML SYRINGE SQ SCH (07:54)
[2017-03-01] MEDS: SENNOSIDES SYRUP 8.8 MG/5 ML CUP PEG SCH (07:54)
[2017-03-01] MEDS: JUVEN POWDER 1 PACK G-TUBE SCH ×2 (07:58→20:26)
[2017-03-01 08:07] VITALS: O2SAT 94
[2017-03-01 09:39] VITALS: BP 100/76; PULSE 56; RESP 16; TEMP 97.6; O2SAT 100
--- NOTE | 2017-03-01 11:17 | HHI.PR ---
Subjective Remarks Follow-up for neuro Behet's syndrome. No acute issues. Objective Vitals Vital Signs Date Time Temp Pulse Resp B/P (MAP) Pulse Ox O2 Delivery O2 Flow Rate FiO2 03/01/17 09:39 97.6 56 16 100/76 (84) 100 03/01/17 08:07 94 21 02/28/17 20:00 97.6 77 20 104/73 (83) 100 I/O 02/28/17 02/28/17 02/28/17 03/01/17 03/01/17 03/01/17 07:00 15:00 23:00 07:00 15:00 23:00 Intake Total 635 ml 850 ml 120 ml 350 ml Output Total 550 ml 450 ml 400 ml Balance 85 ml 400 ml 120 ml -50 ml Intake Oral 0 ml 0 ml IV Total 0 ml Tube Feeding 435 ml 350 ml 120 ml 350 ml Other 200 ml 500 ml Output Urine Total 550 ml 450 ml 400 ml # Bowel Movements 0 1 1 Objective Remarks GENERAL: Thin patient in no apparent distress. CARDIOVASCULAR: Tachycardic rate and regular rhythm. RESPIRATORY: Grunting breath sounds. GASTROINTESTINAL: Abdomen soft, non-tender, nondistended. PEG tube present. NEUROLOGICAL: Awake and alert. Nods head to answer questions. 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's disease Status: Chronic (3) Sepsis ICD Code: A41.9 - Sepsis, unspecified organism Status: Resolved (4) Encephalopathy ICD Code: G93.40 - Encephalopathy, unspecified Status: Resolved (5) GI bleed ICD Code: K92.2 - Gastrointestinal hemorrhage, unspecified Status: Resolved (6) HCAP (healthcare-associated pneumonia) ICD Code: J18.9 - Pneumonia, unspecified organism Status: Resolved (7) UTI (urinary tract infection) ICD Code: N39.0 - Urinary tract infection, site not specified Status: Resolved (8) Leucocytosis ICD Code: D72.829 - Elevated white blood cell count, unspecified Status: Resolved (9) Fever ICD Code: R50.9 - Fever, unspecified Status: Resolved (10) Effusion of hip joint ICD Code: M25.459 - Effusion, unspecified hip Status: Acute (11) 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 Patient followed by neurology. Aphasic at baseline. Neurology following the patient Continue Imuran, prednisone EEG shows mild to moderate slowing at times of various depending on the epoch, there was no epileptic activity seen Continue PT/OT Palliative care following the patient and is still indicating the patient is making his own decisions, full code and full aggressive measures [place] as needed for pain. Blurred vision/Diplopia: Related to his neuro Behet's syndrome. -Ophthalmology evaluated patient on 01/11/17. 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 Recommends immunosuppressants and steroids which patient is currently on. Hospital acquired pneumonia: Stable -S/p Levaquin 750 mg x 7 days -Continue suctioning q6h -Continue Duonebs as needed Urinary retention: Stable. 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 -Monitor intake and output. -Patient will need to keep Kowalski in place as he is non-ambulatory. Change monthly. -Good urine output Diabetes: Stable HbA1c 6.6 on 09/25/16. Accu-checks and SSI were discontinued. SIRS/Sepsis, multiple episodes: Resolved. Coccyx decubitus wound: Wound culture with pseudo fluorescens/putida, group D enterococcus VRE which is sensitive to Zosyn. Patient did have one urine culture of Daphney parapsilosis, was treated with fluconazole for 10 days. Patient had episode of diarrhea, C. difficile cultures performed which was negative. Infectious disease consulted and last seen the patient on 10/18/16, at that time it was indicated to observe off antibiotics. 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 Would benefit from long-term steroids. Most recently treated for possible HAP on 02/05. Sinus tachycardia: Stable. S/p Lopressor TSH, free T3, free T4 were normal Melena, bright red blood in stool: Resolved Status post transfusion, emergently transferred to main hospital, emergent endoscopy GI evaluated and managed patient with emergent colonoscopy showing small ulcer in the colon Continue Prevacid Hemoglobin stable Hypotension: Stable -Lopressor discontinued on 01/02. Prerenal azotemia: Resolved. S/p IVF Hypernatremia and hyperchloremia: Resolved. Continue free water flushes 200 cc every 4 hours Hypokalemia with mild hypomagnesemia: Improved s/p repletion. Decreased oral intake and dysphagia on initial presentation Speech therapy following intermittently. S/P barium swallow. Patient with severe dysphagia. GI consulted and PEG tube was placed. Paper Stacker following. Due to vomiting tube feeding changed to low volume TwoCal HN, goal rate 50ml/hr. Free Water Flushes and additional free water flush with Maury bid. Coccyx decubitus: Wound care nurse is following. Continue to cleanse with normal saline and apply Maxorb AG just over wound beds cover with dry cover dressing and change every other day. Specialty bed Ankle ulcer: R lateral malleolus. -Foam boots. -Wound care nurse following. Continue to cleanse with normal saline and apply Maxorb AG just over wound beds cover with dry cover dressing and change every other day. Depression: Patient was evaluated by psychiatrist. Continue Prozac 40 mg daily and Seroquel 25 mg HS. Constipation: Improved. Continue scheduled Senna and Miralax prn. DVT Prophylaxis: Lovenox, TEDs/SCDs. 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 02/10: CM still awaiting call back. Problem Qualifiers (1) GI bleed: (2) UTI (urinary tract infection): (3) Effusion of hip joint: Mari Talamantes Mar 01, 2017 11:17
[2017-03-01 20:00] VITALS: PULSE 53; RESP 18; TEMP 96.8; O2SAT 97
[2017-03-01] MEDS: QUEtiapine FUMARATE 25 MG TAB PO SCH (20:25)
[2017-03-02] MEDS: azaTHIOprine 50 MG TAB PEG SCH ×2 (05:46→17:48)
[2017-03-02 08:00] VITALS: BP 109/81; PULSE 89; RESP 20; TEMP 98; O2SAT 96
[2017-03-02] MEDS: predniSONE 20 MG TAB PEG SCH (09:13)
[2017-03-02] MEDS: LANSOPRAZOLE SOLUTAB 30 MG TAB PEG SCH ×2 (09:13→22:17)
[2017-03-02] MEDS: ENOXAPARIN SODIUM 40 MG/0.4 ML SYRINGE SQ SCH (09:13)
[2017-03-02] MEDS: SENNOSIDES SYRUP 8.8 MG/5 ML CUP PEG SCH (09:13)
[2017-03-02] MEDS: JUVEN POWDER 1 PACK G-TUBE SCH ×2 (09:13→21:00)
[2017-03-02] MEDS: LACTOBACILLUS ACIDOPHILUS TAB PEG SCH ×2 (09:14→22:17)
[2017-03-02] MEDS: FLUoxetine HCL LIQUID 20 MG/5 ML CUP PEG SCH (09:14)
[2017-03-02] MEDS: HYOSCYAMINE SOLN 0.125 MG/ML 15 ML BTL PEG PRN (09:14)
[2017-03-02] MEDS: LACTIC ACID (AMMONIUM LACTATE) 12% LOTION 225 GM BTL TOPICAL SCH ×2 (09:14→21:00)
--- NOTE | 2017-03-02 10:01 | PD.WCN.NOT ---
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 Additional Information: Patient seen on 5th floor [facility] for follow up of stage 4 pressure injuries sacrum / coccyx wound and R lateral Malleolus wound. Patient positioned to L side for wound assessment with the assistance of marketing underwriter. Removed bordered gauze and calcium alginate dressing to reveal wound.Wound bed presents with 100% beefy red granulation tissue and moist wound bed. Wound has minimal sero-sanguinous drainage without odor and well defined wound margins. Scar tissue is noted to periwound that is otherwise unremarkable.Cleansed wound with normal saline.Wound measurements are as follows: 0.8cm x 0.4cm cm x 0.3cm. Wound is noted without tunneling or undermining. Applied slightly moistened Maxorb extra AG to wound bed and covered with bordered gauze. Applied skin prep before applying bordered gauze dressing. Wound to R lateral malleolus noted with displaced adhesive foam dressing that was changed yesterday. Removed adhesive foam dressing and Calcium alginate AG dressing in place to reveal wound.Cleansed wound with normal saline. Wound bed is noted with ~90%beefy red tissue and ~10% white tissue . Cleansed wound with wound cleanser.Wound measures 1.2cmx 1.3cm x 0.2cm.Wound margins are unattached from 4 to 8 o'clock.Periwound is noted with newly formed scar tissue and is otherwise unremarkable. Wound bed is moist with minimal serous drainage that is without odor. Applied Maxorb AG and covered with bordered gauze dressing. Dressing change is due tomorrow. Arleen Gibbs [facility]ITAL[facility] Mar 02, 2017 10:01
--- NOTE | 2017-03-02 10:28 | HHI.PR ---
Subjective Remarks Follow-up for neuro-Behcet's syndrome. No acute issues. Objective Vitals Vital Signs Date Time Temp Pulse Resp B/P (MAP) Pulse Ox O2 Delivery O2 Flow Rate FiO2 03/02/17 08:00 98.0 89 20 109/81 (90) 96 03/02/17 08:00 96 21 03/01/17 20:00 96.8 53 18 97 I/O 03/01/17 03/01/17 03/01/17 03/02/17 03/02/17 03/02/17 06:59 14:59 22:59 06:59 14:59 22:59 Intake Total 350 ml Output Total 400 ml 1450 ml Balance -50 ml -1450 ml Intake Oral 0 ml Tube Feeding 350 ml Output Urine Total 400 ml 1450 ml Stool Total 0 ml # Voids 0 # Bowel Movements 1 0 Objective Remarks GENERAL: Thin patient in no apparent distress. CARDIOVASCULAR: Tachycardic rate and regular rhythm. RESPIRATORY: Grunting breath sounds. GASTROINTESTINAL: Abdomen soft, non-tender, nondistended. PEG tube present. NEUROLOGICAL: Awake and alert. Nods head to answer questions. 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's disease Status: Chronic (3) Sepsis ICD Code: A41.9 - Sepsis, unspecified organism Status: Resolved (4) Encephalopathy ICD Code: G93.40 - Encephalopathy, unspecified Status: Resolved (5) GI bleed ICD Code: K92.2 - Gastrointestinal hemorrhage, unspecified Status: Resolved (6) HCAP (healthcare-associated pneumonia) ICD Code: J18.9 - Pneumonia, unspecified organism Status: Resolved (7) UTI (urinary tract infection) ICD Code: N39.0 - Urinary tract infection, site not specified Status: Resolved (8) Leucocytosis ICD Code: D72.829 - Elevated white blood cell count, unspecified Status: Resolved (9) Fever ICD Code: R50.9 - Fever, unspecified Status: Resolved (10) Effusion of hip joint ICD Code: M25.459 - Effusion, unspecified hip Status: Acute (11) 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 Patient followed by neurology. Aphasic at baseline. Neurology following the patient Continue Imuran, prednisone EEG shows mild to moderate slowing at times of various depending on the epoch, there was no epileptic activity seen Continue PT/OT Palliative care following the patient and is still indicating the patient is making his own decisions, full code and full aggressive measures [place] as needed for pain. Blurred vision/Diplopia: Related to his neuro Behet's syndrome. -Ophthalmology evaluated patient on 01/11/17. 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 Recommends immunosuppressants and steroids which patient is currently on. Hospital acquired pneumonia: Stable -S/p Levaquin 750 mg x 7 days -Continue suctioning q6h -Continue Duonebs as needed Urinary retention: Stable. 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 -Monitor intake and output. -Patient will need to keep Kowalski in place as he is non-ambulatory. Change monthly. -Good urine output Diabetes: Stable HbA1c 6.6 on 09/25/16. Accu-checks and SSI were discontinued. SIRS/Sepsis, multiple episodes: Resolved. Coccyx decubitus wound: Wound culture with pseudo fluorescens/putida, group D enterococcus VRE which is sensitive to Zosyn. Patient did have one urine culture of Daphney parapsilosis, was treated with fluconazole for 10 days. Patient had episode of diarrhea, C. difficile cultures performed which was negative. Infectious disease consulted and last seen the patient on 10/18/16, at that time it was indicated to observe off antibiotics. 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 Would benefit from long-term steroids. Most recently treated for possible HAP on 02/05. Sinus tachycardia: Stable. S/p Lopressor TSH, free T3, free T4 were normal Melena, bright red blood in stool: Resolved Status post transfusion, emergently transferred to main hospital, emergent endoscopy GI evaluated and managed patient with emergent colonoscopy showing small ulcer in the colon Continue Prevacid Hemoglobin stable Hypotension: Stable -Lopressor discontinued on 01/02. Prerenal azotemia: Resolved. S/p IVF Hypernatremia and hyperchloremia: Resolved. Continue free water flushes 200 cc every 4 hours Hypokalemia with mild hypomagnesemia: Improved s/p repletion. Decreased oral intake and dysphagia on initial presentation Speech therapy following intermittently. S/P barium swallow. Patient with severe dysphagia. GI consulted and PEG tube was placed. Child Life Therapist following. Due to vomiting tube feeding changed to low volume TwoCal HN, goal rate 50ml/hr. Free Water Flushes and additional free water flush with Maury bid. Coccyx decubitus: Wound care nurse is following. Follow recommendations. Specialty bed Ankle ulcer: R lateral malleolus. -Foam boots. -Wound care nurse following. Follow recommendations. Depression: Patient was evaluated by psychiatrist. Continue Prozac 40 mg daily and Seroquel 25 mg HS. Constipation: Improved. Continue scheduled Senna and Miralax prn. DVT Prophylaxis: Lovenox, TEDs/SCDs. 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 02/10: CM still awaiting call back. Problem Qualifiers (1) GI bleed: (2) UTI (urinary tract infection): (3) Effusion of hip joint: Mari Talamantes Mar 02, 2017 10:28
[2017-03-02 20:00] VITALS: BP 121/88; PULSE 83; RESP 20; TEMP 98.2; O2SAT 97
[2017-03-02] MEDS: QUEtiapine FUMARATE 25 MG TAB PO SCH (22:17)
[2017-03-03] MEDS: azaTHIOprine 50 MG TAB PEG SCH ×2 (05:50→17:13)
[2017-03-03 08:26] VITALS: BP 113/74; PULSE 107; RESP 19; TEMP 96.6; O2SAT 98
[2017-03-03] MEDS: ENOXAPARIN SODIUM 40 MG/0.4 ML SYRINGE SQ SCH (08:53)
[2017-03-03] MEDS: LANSOPRAZOLE SOLUTAB 30 MG TAB PEG SCH ×2 (08:53→21:01)
[2017-03-03] MEDS: LACTOBACILLUS ACIDOPHILUS TAB PEG SCH ×2 (08:53→21:02)
[2017-03-03] MEDS: SENNOSIDES SYRUP 8.8 MG/5 ML CUP PEG SCH (08:53)
[2017-03-03] MEDS: LACTIC ACID (AMMONIUM LACTATE) 12% LOTION 225 GM BTL TOPICAL SCH ×2 (08:53→21:03)
[2017-03-03] MEDS: predniSONE 20 MG TAB PEG SCH (08:53)
[2017-03-03] MEDS: FLUoxetine HCL LIQUID 20 MG/5 ML CUP PEG SCH (08:54)
[2017-03-03] MEDS: JUVEN POWDER 1 PACK G-TUBE SCH ×2 (08:54→21:00)
--- NOTE | 2017-03-03 14:03 | HHI.PR ---
Subjective Remarks Follow-up for neuro-Behcet's syndrome. No acute issues. Objective Vitals Vital Signs Date Time Temp Pulse Resp B/P (MAP) Pulse Ox O2 Delivery O2 Flow Rate FiO2 03/03/17 08:26 96.6 107 19 113/74 (87) 98 03/02/17 20:00 98.2 83 20 121/88 (99) 97 I/O 03/02/17 03/02/17 03/02/17 03/03/17 03/03/17 03/03/17 07:00 15:00 23:00 07:00 15:00 23:00 Intake Total 650 ml 1100 ml Output Total 500 ml 950 ml 375 ml Balance 150 ml -950 ml 725 ml Intake Oral 0 ml 0 ml Tube Feeding 350 ml 600 ml Other 300 ml 500 ml Output Urine Total 500 ml 950 ml 375 ml # Bowel Movements 1 0 0 Objective Remarks GENERAL: Thin patient in no apparent distress. EYES: No conjunctival injection. No scleral icterus. CARDIOVASCULAR: Tachycardic rate and regular rhythm. RESPIRATORY: Transmitted grunting upper respiratory sounds, but otherwise clear. GASTROINTESTINAL: Abdomen soft, non-tender, nondistended. PEG tube present. NEUROLOGICAL: Awake and alert. Nods head to answer questions. 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's disease Status: Chronic (3) Sepsis ICD Code: A41.9 - Sepsis, unspecified organism Status: Resolved (4) Encephalopathy ICD Code: G93.40 - Encephalopathy, unspecified Status: Resolved (5) GI bleed ICD Code: K92.2 - Gastrointestinal hemorrhage, unspecified Status: Resolved (6) HCAP (healthcare-associated pneumonia) ICD Code: J18.9 - Pneumonia, unspecified organism Status: Resolved (7) UTI (urinary tract infection) ICD Code: N39.0 - Urinary tract infection, site not specified Status: Resolved (8) Leucocytosis ICD Code: D72.829 - Elevated white blood cell count, unspecified Status: Resolved (9) Fever ICD Code: R50.9 - Fever, unspecified Status: Resolved (10) Effusion of hip joint ICD Code: M25.459 - Effusion, unspecified hip Status: Acute (11) 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 Patient followed by neurology. Aphasic at baseline. Neurology following the patient Continue Imuran, prednisone EEG shows mild to moderate slowing at times of various depending on the epoch, there was no epileptic activity seen Continue PT/OT Palliative care following the patient and is still indicating the patient is making his own decisions, full code and full aggressive measures [place] as needed for pain. Blurred vision/Diplopia: Related to his neuro Behet's syndrome. -Ophthalmology evaluated patient on 01/11/17. 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 Recommends immunosuppressants and steroids which patient is currently on. Hospital acquired pneumonia: Stable -S/p Levaquin 750 mg x 7 days -Continue suctioning q6h -Continue Duonebs as needed Urinary retention: Stable. 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 -Monitor intake and output. -Patient will need to keep Kowalski in place as he is non-ambulatory. Change monthly. -Good urine output Diabetes: Stable HbA1c 6.6 on 09/25/16. Accu-checks and SSI were discontinued. SIRS/Sepsis, multiple episodes: Resolved. Coccyx decubitus wound: Wound culture with pseudo fluorescens/putida, group D enterococcus VRE which is sensitive to Zosyn. Patient did have one urine culture of Daphney parapsilosis, was treated with fluconazole for 10 days. Patient had episode of diarrhea, C. difficile cultures performed which was negative. Infectious disease consulted and last seen the patient on 10/18/16, at that time it was indicated to observe off antibiotics. 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 Would benefit from long-term steroids. Most recently treated for possible HAP on 02/05. Sinus tachycardia: Stable. S/p Lopressor TSH, free T3, free T4 were normal Melena, bright red blood in stool: Resolved Status post transfusion, emergently transferred to main hospital, emergent endoscopy GI evaluated and managed patient with emergent colonoscopy showing small ulcer in the colon Continue Prevacid Hemoglobin stable Hypotension: Stable -Lopressor discontinued on 01/02. Prerenal azotemia: Resolved. S/p IVF Hypernatremia and hyperchloremia: Resolved. Continue free water flushes 200 cc every 4 hours Hypokalemia with mild hypomagnesemia: Improved s/p repletion. Decreased oral intake and dysphagia on initial presentation Speech therapy following intermittently. S/P barium swallow. Patient with severe dysphagia. GI consulted and PEG tube was placed. Skirt Trimmer following. Due to vomiting tube feeding changed to low volume TwoCal HN, goal rate 50ml/hr. Free Water Flushes and additional free water flush with Maury bid. Coccyx decubitus: Wound care nurse is following. Follow recommendations. Specialty bed Ankle ulcer: R lateral malleolus. -Foam boots. -Wound care nurse following. Follow recommendations. Depression: Patient was evaluated by psychiatrist. Continue Prozac 40 mg daily and Seroquel 25 mg HS. Constipation: Improved. Continue scheduled Senna and Miralax prn. DVT Prophylaxis: Lovenox, TEDs/SCDs. Discharge Planning 01/27: [facility] to transfer patient there, awaiting return call. 02/10: CM still awaiting call back. Problem Qualifiers (1) GI bleed: (2) UTI (urinary tract infection): (3) Effusion of hip joint: Mari Talamantes Mar 03, 2017 14:03
[2017-03-03 20:39] VITALS: BP 121/104; PULSE 88; RESP 24; TEMP 98.8; O2SAT 94
[2017-03-03] MEDS: QUEtiapine FUMARATE 25 MG TAB PO SCH (21:00)
[2017-03-03] MEDS: ACETAMINOPHEN/HYDROcodone 325 MG/5 MG TAB PEG PRN (21:02)
[2017-03-04] MEDS: azaTHIOprine 50 MG TAB PEG SCH ×2 (05:39→17:32)
[2017-03-04 08:00] VITALS: BP 122/83; PULSE 92; RESP 24; TEMP 98.2; O2SAT 100
[2017-03-04] MEDS: LACTOBACILLUS ACIDOPHILUS TAB PEG SCH ×2 (08:11→21:20)
[2017-03-04] MEDS: FLUoxetine HCL LIQUID 20 MG/5 ML CUP PEG SCH (08:11)
[2017-03-04] MEDS: predniSONE 20 MG TAB PEG SCH (08:11)
[2017-03-04] MEDS: ENOXAPARIN SODIUM 40 MG/0.4 ML SYRINGE SQ SCH (08:11)
[2017-03-04] MEDS: SENNOSIDES SYRUP 8.8 MG/5 ML CUP PEG SCH (08:11)
[2017-03-04] MEDS: LANSOPRAZOLE SOLUTAB 30 MG TAB PEG SCH ×2 (08:11→21:20)
[2017-03-04] MEDS: LACTIC ACID (AMMONIUM LACTATE) 12% LOTION 225 GM BTL TOPICAL SCH ×2 (08:12→21:22)
[2017-03-04] MEDS: JUVEN POWDER 1 PACK G-TUBE SCH ×2 (08:12→21:00)
--- NOTE | 2017-03-04 10:18 | HHI.PR ---
Subjective Remarks Follow-up for neuro-Behcet's syndrome. Patient denies any shortness of breath. Denies feeling uncomfortable. The nurse later asked me to come re-assess the patient as he was grunting. She states she suctioned him but it continues. When I went to assess the patient he is crying and grunting which is normal for him. He admits to having pain in his right ankle where the ulceration is present. I asked the nurse to replace bandage and place foam heel boots. She will reposition the patient. Objective Vitals Vital Signs Date Time Temp Pulse Resp B/P (MAP) Pulse Ox O2 Delivery O2 Flow Rate FiO2 03/04/17 08:00 98.2 92 24 122/83 (96) 100 03/03/17 22:00 20 03/03/17 20:39 98.8 88 24 121/104 (110) 94 I/O 03/03/17 03/03/17 03/03/17 03/04/17 03/04/17 03/04/17 07:00 15:00 23:00 07:00 15:00 23:00 Intake Total 1100 ml 1200 ml Output Total 375 ml 1400.0 ml Balance 725 ml -1400.0 ml 1200 ml Intake Oral 0 ml Tube Feeding 600 ml 600 ml Other 500 ml 600 ml Output Urine Total 375 ml 1400 ml Tube Feeding Residual Discard 0 ml # Bowel Movements 0 1 Objective Remarks GENERAL: Thin patient in no apparent distress. CARDIOVASCULAR: Tachycardic rate and regular rhythm. RESPIRATORY: Grunting sounds, same. GASTROINTESTINAL: Abdomen soft, non-tender, nondistended. PEG tube present. NEUROLOGICAL: Awake and alert. Nods head to answer questions. PSYCHIATRIC: Crying. 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's disease Status: Chronic (3) Sepsis ICD Code: A41.9 - Sepsis, unspecified organism Status: Resolved (4) Encephalopathy ICD Code: G93.40 - Encephalopathy, unspecified Status: Resolved (5) GI bleed ICD Code: K92.2 - Gastrointestinal hemorrhage, unspecified Status: Resolved (6) HCAP (healthcare-associated pneumonia) ICD Code: J18.9 - Pneumonia, unspecified organism Status: Resolved (7) UTI (urinary tract infection) ICD Code: N39.0 - Urinary tract infection, site not specified Status: Resolved (8) Leucocytosis ICD Code: D72.829 - Elevated white blood cell count, unspecified Status: Resolved (9) Fever ICD Code: R50.9 - Fever, unspecified Status: Resolved (10) Effusion of hip joint ICD Code: M25.459 - Effusion, unspecified hip Status: Acute (11) 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 Patient followed by neurology. Aphasic at baseline. Neurology following the patient Continue Imuran, prednisone EEG shows mild to moderate slowing at times of various depending on the epoch, there was no epileptic activity seen Continue PT/OT Palliative care following the patient and is still indicating the patient is making his own decisions, full code and full aggressive measures [place] as needed for pain. Blurred vision/Diplopia: Related to his neuro Behet's syndrome. -Ophthalmology evaluated patient on 01/11/17. 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 Recommends immunosuppressants and steroids which patient is currently on. Hospital acquired pneumonia: Stable -S/p Levaquin 750 mg x 7 days -Continue suctioning q6h -Continue Duonebs as needed Urinary retention: Stable. 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 -Monitor intake and output. -Patient will need to keep Kowalski in place as he is non-ambulatory. Change monthly. -Good urine output Diabetes: Stable HbA1c 6.6 on 09/25/16. Accu-checks and SSI were discontinued. SIRS/Sepsis, multiple episodes: Resolved. Coccyx decubitus wound: Wound culture with pseudo fluorescens/putida, group D enterococcus VRE which is sensitive to Zosyn. Patient did have one urine culture of Daphney parapsilosis, was treated with fluconazole for 10 days. Patient had episode of diarrhea, C. difficile cultures performed which was negative. Infectious disease consulted and last seen the patient on 10/18/16, at that time it was indicated to observe off antibiotics. 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 Would benefit from long-term steroids. Most recently treated for possible HAP on 02/05. Sinus tachycardia: Stable. S/p Lopressor TSH, free T3, free T4 were normal Melena, bright red blood in stool: Resolved Status post transfusion, emergently transferred to [facility], emergent endoscopy GI evaluated and managed patient with emergent colonoscopy showing small ulcer in the colon Continue Prevacid Hemoglobin stable Hypotension: Improved. -Lopressor discontinued on 01/02. Prerenal azotemia: Resolved. S/p IVF Hypernatremia and hyperchloremia: Resolved. Continue free water flushes 200 cc every 4 hours Hypokalemia with mild hypomagnesemia: Improved s/p repletion. Decreased oral intake and dysphagia on initial presentation Speech therapy following intermittently. S/P barium swallow. Patient with severe dysphagia. GI consulted and PEG tube was placed. Space Operations following. Due to vomiting tube feeding changed to low volume TwoCal HN, goal rate 50ml/hr. Free Water Flushes and additional free water flush with Maury bid. Coccyx decubitus: Wound care nurse is following. Follow recommendations. Specialty bed Ankle ulcer: R lateral malleolus. -Foam boots. -Wound care nurse following. Follow recommendations. Depression: Patient was evaluated by psychiatrist. Continue Prozac 40 mg daily and Seroquel 25 mg HS. Constipation: Improved. Continue scheduled Senna and Miralax prn. DVT Prophylaxis: Lovenox, TEDs/SCDs. Discharge Planning 01/27: [facility], awaiting return call. 02/10: CM still awaiting call back. Problem Qualifiers (1) GI bleed: (2) UTI (urinary tract infection): (3) Effusion of hip joint: Mari Talamantes Mar 04, 2017 10:18
[2017-03-04] MEDS: ACETAMINOPHEN/HYDROcodone 325 MG/5 MG TAB PEG PRN (11:52)
[2017-03-04 20:26] VITALS: BP 97/83; PULSE 84; RESP 24; TEMP 98.2; O2SAT 94
[2017-03-04] MEDS: QUEtiapine FUMARATE 25 MG TAB PO SCH (21:00)
[2017-03-05] MEDS: azaTHIOprine 50 MG TAB PEG SCH ×2 (05:35→07:38)
[2017-03-05] MEDS: FLUoxetine HCL LIQUID 20 MG/5 ML CUP PEG SCH (07:37)
[2017-03-05] MEDS: SENNOSIDES SYRUP 8.8 MG/5 ML CUP PEG SCH (07:38)
[2017-03-05] MEDS: predniSONE 20 MG TAB PEG SCH (07:38)
[2017-03-05] MEDS: LACTOBACILLUS ACIDOPHILUS TAB PEG SCH ×2 (07:39→21:08)
[2017-03-05] MEDS: ACETAMINOPHEN/HYDROcodone 325 MG/5 MG TAB PEG PRN (07:40)
[2017-03-05] MEDS: ENOXAPARIN SODIUM 40 MG/0.4 ML SYRINGE SQ SCH (07:40)
[2017-03-05 08:00] VITALS: BP 108/90; PULSE 92; RESP 22; TEMP 97.2; O2SAT 98
[2017-03-05] MEDS: LANSOPRAZOLE SOLUTAB 30 MG TAB PEG SCH ×2 (09:00→21:09)
[2017-03-05] MEDS: LACTIC ACID (AMMONIUM LACTATE) 12% LOTION 225 GM BTL TOPICAL SCH ×2 (09:00→21:00)
[2017-03-05] MEDS: JUVEN POWDER 1 PACK G-TUBE SCH ×2 (09:00→21:00)
--- NOTE | 2017-03-05 09:16 | HHI.PR ---
Subjective Remarks Follow-up for neuro Behcet's syndrome. Patient denies any shortness of breath. He admits to feeling better today. Objective Vitals Vital Signs Date Time Temp Pulse Resp B/P (MAP) Pulse Ox O2 Delivery O2 Flow Rate FiO2 03/05/17 08:00 97.2 92 22 108/90 (96) 98 03/04/17 20:26 98.2 84 24 97/83 (88) 94 03/04/17 12:52 22 I/O 03/04/17 03/04/17 03/04/17 03/05/17 03/05/17 03/05/17 06:59 14:59 22:59 06:59 14:59 22:59 Intake Total 1200 ml 850 ml 550 ml 400 ml Output Total 650 ml 1400 ml 420 ml Balance 1200 ml 200 ml -850 ml -20 ml Tube Feeding 600 ml 350 ml 250 ml Tube Irrigant 400 ml Other 600 ml 500 ml 300 ml Output Urine Total 650 ml 1400 ml 420 ml # Bowel Movements 1 0 Objective Remarks GENERAL: Thin patient in no apparent distress. CARDIOVASCULAR: Tachycardic rate and regular rhythm. RESPIRATORY: Grunting sounds, same. No rales or wheezing. GASTROINTESTINAL: Abdomen soft, non-tender, nondistended. NEUROLOGICAL: Awake and alert. Nods head to answer questions. PSYCHIATRIC: Stable mood and affect. 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's disease Status: Chronic (3) Sepsis ICD Code: A41.9 - Sepsis, unspecified organism Status: Resolved (4) Encephalopathy ICD Code: G93.40 - Encephalopathy, unspecified Status: Resolved (5) GI bleed ICD Code: K92.2 - Gastrointestinal hemorrhage, unspecified Status: Resolved (6) HCAP (healthcare-associated pneumonia) ICD Code: J18.9 - Pneumonia, unspecified organism Status: Resolved (7) UTI (urinary tract infection) ICD Code: N39.0 - Urinary tract infection, site not specified Status: Resolved (8) Leucocytosis ICD Code: D72.829 - Elevated white blood cell count, unspecified Status: Resolved (9) Fever ICD Code: R50.9 - Fever, unspecified Status: Resolved (10) Effusion of hip joint ICD Code: M25.459 - Effusion, unspecified hip Status: Acute (11) 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 Patient followed by neurology. Aphasic at baseline. Neurology following the patient Continue Imuran, prednisone EEG shows mild to moderate slowing at times of various depending on the epoch, there was no epileptic activity seen Continue PT/OT Palliative care following the patient and is still indicating the patient is making his own decisions, full code and full aggressive measures [place] as needed for pain. Blurred vision/Diplopia: Related to his neuro Behet's syndrome. -Ophthalmology evaluated patient on 01/11/17. 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 Recommends immunosuppressants and steroids which patient is currently on. Hospital acquired pneumonia: Stable -S/p Levaquin 750 mg x 7 days -Continue suctioning q6h -Continue Duonebs as needed Urinary retention: Stable. 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 -Monitor intake and output. -Patient will need to keep Kowalski in place as he is non-ambulatory. Change monthly. -Good urine output Diabetes: Stable HbA1c 6.6 on 09/25/16. Accu-checks and SSI were discontinued. SIRS/Sepsis, multiple episodes: Resolved. Coccyx decubitus wound: Wound culture with pseudo fluorescens/putida, group D enterococcus VRE which is sensitive to Zosyn. Patient did have one urine culture of Daphney parapsilosis, was treated with fluconazole for 10 days. Patient had episode of diarrhea, C. difficile cultures performed which was negative. Infectious disease consulted and last seen the patient on 10/18/16, at that time it was indicated to observe off antibiotics. 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 Would benefit from long-term steroids. Most recently treated for possible HAP on 02/05. Sinus tachycardia: Stable. S/p Lopressor TSH, free T3, free T4 were normal Melena, bright red blood in stool: Resolved Status post transfusion, emergently transferred to main hospital, emergent endoscopy GI evaluated and managed patient with emergent colonoscopy showing small ulcer in the colon Continue Prevacid Hemoglobin stable Hypotension: Improved. -Lopressor discontinued on 01/02. Prerenal azotemia: Resolved. S/p IVF Hypernatremia and hyperchloremia: Resolved. Continue free water flushes 200 cc every 4 hours Hypokalemia with mild hypomagnesemia: Improved s/p repletion. Decreased oral intake and dysphagia on initial presentation Speech therapy following intermittently. S/P barium swallow. Patient with severe dysphagia. GI consulted and PEG tube was placed. C Unix Developer following. Due to vomiting tube feeding changed to low volume TwoCal HN, goal rate 50ml/hr. Free Water Flushes and additional free water flush with Maury bid. Coccyx decubitus: Wound care nurse is following. Follow recommendations. Specialty bed Ankle ulcer: R lateral malleolus. -Foam boots. -Wound care nurse following. Follow recommendations. Depression: Patient was evaluated by psychiatrist. Continue Prozac 40 mg daily and Seroquel 25 mg HS. Constipation: Improved. Continue scheduled Senna and Miralax prn. DVT Prophylaxis: Lovenox, TEDs/SCDs. 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 02/10: CM still awaiting call back. Problem Qualifiers (1) GI bleed: (2) UTI (urinary tract infection): (3) Effusion of hip joint: Mari Talamantes Mar 05, 2017 09:16
[2017-03-05 21:00] VITALS: BP 105/90; PULSE 89; RESP 20; TEMP 98.6; O2SAT 95
[2017-03-05] MEDS: QUEtiapine FUMARATE 25 MG TAB PO SCH (21:00)
[2017-03-06] MEDS: azaTHIOprine 50 MG TAB PEG SCH ×2 (05:09→17:46)
[2017-03-06 08:00] VITALS: BP 114/77; PULSE 95; RESP 20; TEMP 97.1; O2SAT 98
[2017-03-06] MEDS: JUVEN POWDER 1 PACK G-TUBE SCH ×2 (09:00→21:00)
--- NOTE | 2017-03-06 09:10 | HHI.PR ---
Subjective Remarks Follow-up for neuro Behet's syndrome. Denies any shortness of breath. Objective Vitals Vital Signs Date Time Temp Pulse Resp B/P (MAP) Pulse Ox O2 Delivery O2 Flow Rate FiO2 03/06/17 08:00 97.1 95 20 114/77 (89) 98 03/05/17 21:00 98.6 89 20 105/90 (95) 95 I/O 03/05/17 03/05/17 03/05/17 03/06/17 03/06/17 03/06/17 07:00 15:00 23:00 07:00 15:00 23:00 Intake Total 400 ml 920 ml 1200 ml Output Total 420 ml 925 ml 450 ml Balance -20 ml -5 ml 750 ml Tube Feeding 720 ml 600 ml Tube Irrigant 400 ml Other 200 ml 600 ml Output Urine Total 420 ml 925 ml 450 ml # Bowel Movements 2 0 Objective Remarks GENERAL: Thin patient in no apparent distress. CARDIOVASCULAR: Regular rhythm. RESPIRATORY: Grunting coarse breath sounds. GASTROINTESTINAL: Abdomen soft, non-tender, nondistended. NEUROLOGICAL: Awake and alert. Nods head to answer questions. PSYCHIATRIC: Stable mood and affect. 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's disease Status: Chronic (3) Sepsis ICD Code: A41.9 - Sepsis, unspecified organism Status: Resolved (4) Encephalopathy ICD Code: G93.40 - Encephalopathy, unspecified Status: Resolved (5) GI bleed ICD Code: K92.2 - Gastrointestinal hemorrhage, unspecified Status: Resolved (6) HCAP (healthcare-associated pneumonia) ICD Code: J18.9 - Pneumonia, unspecified organism Status: Resolved (7) UTI (urinary tract infection) ICD Code: N39.0 - Urinary tract infection, site not specified Status: Resolved (8) Leucocytosis ICD Code: D72.829 - Elevated white blood cell count, unspecified Status: Resolved (9) Fever ICD Code: R50.9 - Fever, unspecified Status: Resolved (10) Effusion of hip joint ICD Code: M25.459 - Effusion, unspecified hip Status: Acute (11) 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 Patient followed by neurology. Aphasic at baseline. Neurology following the patient Continue Imuran, prednisone EEG shows mild to moderate slowing at times of various depending on the epoch, there was no epileptic activity seen Continue PT/OT Palliative care following the patient and is still indicating the patient is making his own decisions, full code and full aggressive measures [place] as needed for pain. Blurred vision/Diplopia: Related to his neuro Behet's syndrome. -Ophthalmology evaluated patient on 01/11/17. 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 Recommends immunosuppressants and steroids which patient is currently on. Hospital acquired pneumonia: Stable -S/p Levaquin 750 mg x 7 days -Continue suctioning q6h -Continue Duonebs as needed Urinary retention: Stable. 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 -Monitor intake and output. -Patient will need to keep Kowalski in place as he is non-ambulatory. Change monthly. -Good urine output Diabetes: Stable HbA1c 6.6 on 09/25/16. Accu-checks and SSI were discontinued. SIRS/Sepsis, multiple episodes: Resolved. Coccyx decubitus wound: Wound culture with pseudo fluorescens/putida, group D enterococcus VRE which is sensitive to Zosyn. Patient did have one urine culture of Daphney parapsilosis, was treated with fluconazole for 10 days. Patient had episode of diarrhea, C. difficile cultures performed which was negative. Infectious disease consulted and last seen the patient on 10/18/16, at that time it was indicated to observe off antibiotics. 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 Would benefit from long-term steroids. Most recently treated for possible HAP on 02/05. Sinus tachycardia: Stable. S/p Lopressor TSH, free T3, free T4 were normal Melena, bright red blood in stool: Resolved Status post transfusion, emergently transferred to [facility] hospital, emergent endoscopy GI evaluated and managed patient with emergent colonoscopy showing small ulcer in the colon Continue Prevacid Hemoglobin stable Hypotension: Improved. -Lopressor discontinued on 01/02. Prerenal azotemia: Resolved. S/p IVF Hypernatremia and hyperchloremia: Resolved. Continue free water flushes 200 cc every 4 hours Hypokalemia with mild hypomagnesemia: Improved s/p repletion. Decreased oral intake and dysphagia on initial presentation Speech therapy following intermittently. S/P barium swallow. Patient with severe dysphagia. GI consulted and PEG tube was placed. Outside Rigger following. Due to vomiting tube feeding changed to low volume TwoCal HN, goal rate 50ml/hr. Free Water Flushes and additional free water flush with Maury bid. Coccyx decubitus: Wound care nurse is following. Follow recommendations. Specialty bed Ankle ulcer: R lateral malleolus. -Foam boots. -Wound care nurse following. Follow recommendations. Depression: Patient was evaluated by psychiatrist. Continue Prozac 40 mg daily and Seroquel 25 mg HS. Constipation: Improved. Continue scheduled Senna and Miralax prn. DVT Prophylaxis: Lovenox, TEDs/SCDs. Discharge Planning 01/27: [facility], awaiting return call. 02/10: CM still awaiting call back. Problem Qualifiers (1) GI bleed: (2) UTI (urinary tract infection): (3) Effusion of hip joint: Mari Talamantes Mar 06, 2017 09:10
[2017-03-06] MEDS: predniSONE 20 MG TAB PEG SCH (09:43)
[2017-03-06] MEDS: LACTOBACILLUS ACIDOPHILUS TAB PEG SCH ×2 (09:44→23:21)
[2017-03-06] MEDS: FLUoxetine HCL LIQUID 20 MG/5 ML CUP PEG SCH (09:44)
[2017-03-06] MEDS: SENNOSIDES SYRUP 8.8 MG/5 ML CUP PEG SCH (09:44)
[2017-03-06] MEDS: ENOXAPARIN SODIUM 40 MG/0.4 ML SYRINGE SQ SCH (09:44)
[2017-03-06] MEDS: LACTIC ACID (AMMONIUM LACTATE) 12% LOTION 225 GM BTL TOPICAL SCH ×2 (09:51→23:22)
[2017-03-06] MEDS: LANSOPRAZOLE SOLUTAB 30 MG TAB PEG SCH ×2 (10:06→23:21)
[2017-03-06 20:00] VITALS: BP 106/80; PULSE 93; RESP 20; TEMP 98.7; O2SAT 92
[2017-03-06] MEDS: QUEtiapine FUMARATE 25 MG TAB PO SCH (21:00)
[2017-03-07] MEDS: azaTHIOprine 50 MG TAB PEG SCH ×2 (06:29→17:30)
[2017-03-07 08:00] VITALS: BP 96/79; PULSE 89; RESP 20; TEMP 97.9; O2SAT 96
--- NOTE | 2017-03-07 08:27 | HHI.PR ---
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 Patient denies any new complaints. Resting comfortably in bed. No change in clinical status. Awaiting case management for discharge planning Objective Vitals Vital Signs Date Time Temp Pulse Resp B/P (MAP) Pulse Ox O2 Delivery O2 Flow Rate FiO2 03/07/17 08:00 97.9 89 20 96/79 (85) 96 03/06/17 20:00 98.7 93 20 106/80 (89) 92 I/O 03/06/17 03/06/17 03/06/17 03/07/17 03/07/17 03/07/17 07:00 15:00 23:00 07:00 15:00 23:00 Intake Total 1200 ml 0 ml 600 ml 0 ml Output Total 450 ml 100 ml 250 ml 175 ml Balance 750 ml -100 ml -250 ml 600 ml -175 ml Intake Oral 0 ml 0 ml Tube Feeding 600 ml 400 ml Other 600 ml 200 ml Output Urine Total 450 ml 100 ml 250 ml 175 ml # Bowel Movements 0 0 1 1 Objective Remarks GENERAL: Well-developed, cachectic and contracted. HEENT: Head is normocephalic without any lesions or masses noted. Facial features are symmetric. Eyes: Extraocular muscles are intact. Conjunctivae were clear. NECK: Trachea midline no deviation. CARDIAC: Regular rhythm, tachycardia noted. S1/S2 are heard. No murmurs gallops or rubs. LUNGS: Clear to auscultation bilaterally. No wheeze, rhonchi or rales. No use of accessory muscles on inspiration or expiration. ABDOMEN: Soft, nontender. Nondistended. Bowel sounds heard in all 4 quadrants. No organomegaly or masses. Negative rebound, negative guarding. PEG tube noted without any excoriation. EXTREMITIES: No edema, pulses are equal bilaterally. No cyanosis or clubbing. Ulceration noted over his left lower extremity lateral malleolus Procedures 07/19/16 EGD with PEG tube placement 09/27/16 colonoscopy Urinary Catheter: Yes Assessment to: Continue Kowalski insert reason: Prolonged Immobilization Date of Insertion: Mar 01, 2017 Vascular Central Line Catheter: No A/P Assessment and Plan Neuro-Behcet, history of frontal lobe CVA, encephalopathy, history of meningitis , Blurred vision/double vision, urinary retention, chronic No new changes on imaging. Patient was followed by neurology. Aphasic at baseline. 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 Decreased oral intake and dysphagia on initial presentation Speech therapy following intermittently. S/P barium swallow. Patient with severe dysphagia. GI was consulted and PEG tube was placed. Nursing staff indicates patient was having bolus feeding intolerance Dietary reconsulted and made recommendations Coccyx decubitus. Ankle ulceration Wound care nurse is following the patient for management Patient with specialty bed Mood disorder, depression Patient was evaluated by psychiatrist. Prozac 40 mg daily Seroquel 25 mg at bedtime Questionable hospital-acquired pneumonia/aspiration, resolved Patient remains asymptomatic, no fever, no leukocytosis, no significant tachycardia, no hypoxia Chest x-ray indicates minimal bibasilar densities greater right lower lobe Status post Levaquin 750 mg by mouth for 7 days Continue Lactinex Continue Duo nebs as needed Status post normal saline nebulizer for 3 days Diabetes Glucose continues to be well controlled, DVT Prophylaxis: Lovenox, TEDs/SCDs. Discharge Planning Case management for discharge planning, recent records indicate that planning on transferring back to [place], Ede Richardson Mar 07, 2017 08:27
[2017-03-07] MEDS: LANSOPRAZOLE SOLUTAB 30 MG TAB PEG SCH ×2 (09:35→22:49)
[2017-03-07] MEDS: ENOXAPARIN SODIUM 40 MG/0.4 ML SYRINGE SQ SCH (09:35)
[2017-03-07] MEDS: LACTOBACILLUS ACIDOPHILUS TAB PEG SCH ×2 (09:35→22:49)
[2017-03-07] MEDS: JUVEN POWDER 1 PACK G-TUBE SCH ×2 (09:35→21:00)
[2017-03-07] MEDS: SENNOSIDES SYRUP 8.8 MG/5 ML CUP PEG SCH (09:35)
[2017-03-07] MEDS: predniSONE 20 MG TAB PEG SCH (09:35)
[2017-03-07] MEDS: FLUoxetine HCL LIQUID 20 MG/5 ML CUP PEG SCH (09:35)
[2017-03-07] MEDS: LACTIC ACID (AMMONIUM LACTATE) 12% LOTION 225 GM BTL TOPICAL SCH ×2 (09:35→21:00)
[2017-03-07] MEDS: ACETAMINOPHEN/HYDROcodone 325 MG/5 MG TAB PEG PRN (09:36)
[2017-03-07 20:00] VITALS: BP 113/79; PULSE 95; RESP 18; TEMP 97.7; O2SAT 96
[2017-03-07] MEDS: QUEtiapine FUMARATE 25 MG TAB PO SCH (22:58)
[2017-03-08] VITALS: BP 120/83; PULSE 86; RESP 16; TEMP 95.7; O2SAT 95
[2017-03-08] MEDS: azaTHIOprine 50 MG TAB PEG SCH ×2 (06:37→17:13)
[2017-03-08 08:00] VITALS: BP 95/67; PULSE 98; RESP 16; TEMP 97.7; O2SAT 97
[2017-03-08] MEDS: JUVEN POWDER 1 PACK G-TUBE SCH ×2 (09:00→21:00)
[2017-03-08] MEDS: LACTIC ACID (AMMONIUM LACTATE) 12% LOTION 225 GM BTL TOPICAL SCH ×2 (09:00→20:24)
[2017-03-08] MEDS: LACTOBACILLUS ACIDOPHILUS TAB PEG SCH ×2 (09:20→20:24)
[2017-03-08] MEDS: SENNOSIDES SYRUP 8.8 MG/5 ML CUP PEG SCH (09:20)
[2017-03-08] MEDS: LANSOPRAZOLE SOLUTAB 30 MG TAB PEG SCH ×2 (09:20→20:24)
[2017-03-08] MEDS: FLUoxetine HCL LIQUID 20 MG/5 ML CUP PEG SCH (09:20)
[2017-03-08] MEDS: ENOXAPARIN SODIUM 40 MG/0.4 ML SYRINGE SQ SCH (09:21)
[2017-03-08] MEDS: predniSONE 20 MG TAB PEG SCH (09:21)
--- NOTE | 2017-03-08 11:27 | HHI.PR ---
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 Patient is lying in bed, resting comfortably. Patient denies any new complaints. No change in clinical status. Awaiting case management for discharge planning. Objective Vitals Vital Signs Date Time Temp Pulse Resp B/P (MAP) Pulse Ox O2 Delivery O2 Flow Rate FiO2 03/08/17 08:00 97.7 98 16 95/67 (76) 97 03/08/17 00:00 95.7 86 16 120/83 (95) 95 03/07/17 20:00 97.7 95 18 113/79 (90) 96 I/O 03/07/17 03/07/17 03/07/17 03/08/17 03/08/17 03/08/17 07:00 15:00 23:00 07:00 15:00 23:00 Intake Total 600 ml 790 ml 550 ml Output Total 650 ml 700 ml 250 ml Balance 600 ml 140 ml -150 ml -250 ml Intake Oral 0 ml Tube Feeding 400 ml 590 ml 350 ml Other 200 ml 200 ml 200 ml Output Urine Total 650 ml 700 ml 250 ml # Bowel Movements 1 2 0 0 1 Objective Remarks GENERAL: Well-developed, cachectic and contracted. HEENT: Head is normocephalic without any lesions or masses noted. Facial features are symmetric. Eyes: Extraocular muscles are intact. Conjunctivae were clear. NECK: Trachea midline no deviation. CARDIAC: Regular rhythm, tachycardia noted. S1/S2 are heard. No murmurs gallops or rubs. LUNGS: Clear to auscultation bilaterally. No wheeze, rhonchi or rales. No use of accessory muscles on inspiration or expiration. ABDOMEN: Soft, nontender. Nondistended. Bowel sounds heard in all 4 quadrants. No organomegaly or masses. Negative rebound, negative guarding. PEG tube noted without any excoriation. EXTREMITIES: No edema, pulses are equal bilaterally. No cyanosis or clubbing. Ulceration noted over his left lower extremity lateral malleolus Procedures 07/19/16 EGD with PEG tube placement 09/27/16 colonoscopy Urinary Catheter: Yes Assessment to: Continue Kowaslki insert reason: Obstruction/Retention Date of Insertion: Mar 01, 2017 Vascular Central Line Catheter: No A/P Assessment and Plan Neuro-Behcet, history of frontal lobe CVA, encephalopathy, history of meningitis , Blurred vision/double vision, urinary retention, chronic No new changes on imaging. Patient was followed by neurology. Aphasic at baseline. 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 Decreased oral intake and dysphagia on initial presentation Speech therapy following intermittently. S/P barium swallow. Patient with severe dysphagia. GI was consulted and PEG tube was placed. Nursing staff indicates patient was having bolus feeding intolerance Dietary reconsulted and made recommendations Coccyx decubitus. Ankle ulceration Wound care nurse is following the patient for management Patient with specialty bed Mood disorder, depression Patient was evaluated by psychiatrist. Prozac 40 mg daily Seroquel 25 mg at bedtime Questionable hospital-acquired pneumonia/aspiration, resolved Patient remains asymptomatic, no fever, no leukocytosis, no significant tachycardia, no hypoxia Chest x-ray indicates minimal bibasilar densities greater right lower lobe Status post Levaquin 750 mg by mouth for 7 days Continue Lactinex Continue Duo nebs as needed Status post normal saline nebulizer for 3 days Diabetes Glucose continues to be well controlled, DVT Prophylaxis: Lovenox, TEDs/SCDs. Discharge Planning Case management for discharge planning, recent records indicate that planning on transferring back to [place], Ede Richardson Mar 08, 2017 11:27
--- NOTE | 2017-03-08 17:00 | PD.WCN.NOT ---
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 Additional Information: Patient seen on 3rd floor [facility] for follow up of stage 4 pressure injuries sacrum / coccyx wound and R lateral Malleolus wound. Patient positioned to L side for wound assessment with the assistance of copywriter. Removed bordered gauze and calcium alginate dressing to reveal wound.Wound bed presents with 100% beefy red granulation tissue and moist wound bed. Wound has minimal sero-sanguinous drainage without odor and well defined wound margins. Scar tissue is noted to periwound that is otherwise unremarkable.Cleansed wound with normal saline.Wound measurements are as follows: 0.5cm x 0.3cm cm x 0.1cm. Applied Maxorb extra AG to wound bed and covered with bordered gauze. Applied skin prep before applying bordered gauze dressing. Wound to R lateral malleolus noted adhesive foam dressing that was that was changed today. Peeled back adhesive foam dressing and Calcium alginate AG dressing in place to reveal wound.Cleansed wound with normal saline. Wound bed is noted with ~100% dark red tissue . Wound measures 0.9cmx 1cm x 0.1cm.Periwound is noted with newly formed scar tissue and is otherwise unremarkable. Wound bed is moist with minimal sero-sanguinous drainage is without odor. Reapplied Maxorb ag dressing and adhesive foam dressing back in place. Both wounds continue to improve and are measuring smaller. Arleen Gibbs [facility] Mar 08, 2017 17:00
[2017-03-08 20:00] VITALS: BP 102/78; PULSE 73; RESP 20; TEMP 97.2; O2SAT 98
[2017-03-08] MEDS: QUEtiapine FUMARATE 25 MG TAB PO SCH (20:24)
[2017-03-09] MEDS: azaTHIOprine 50 MG TAB PEG SCH ×2 (05:45→17:05)
[2017-03-09 08:00] VITALS: BP 112/79; PULSE 81; RESP 17; TEMP 97.6; O2SAT 95
[2017-03-09] MEDS: FLUoxetine HCL LIQUID 20 MG/5 ML CUP PEG SCH (08:15)
[2017-03-09] MEDS: predniSONE 20 MG TAB PEG SCH (08:15)
[2017-03-09] MEDS: ENOXAPARIN SODIUM 40 MG/0.4 ML SYRINGE SQ SCH (08:15)
[2017-03-09] MEDS: LACTOBACILLUS ACIDOPHILUS TAB PEG SCH ×2 (08:15→21:59)
[2017-03-09] MEDS: JUVEN POWDER 1 PACK G-TUBE SCH ×2 (08:15→22:01)
[2017-03-09] MEDS: LANSOPRAZOLE SOLUTAB 30 MG TAB PEG SCH ×2 (08:15→21:59)
[2017-03-09] MEDS: LACTIC ACID (AMMONIUM LACTATE) 12% LOTION 225 GM BTL TOPICAL SCH ×2 (08:15→21:00)
[2017-03-09] MEDS: SENNOSIDES SYRUP 8.8 MG/5 ML CUP PEG SCH (08:15)
--- NOTE | 2017-03-09 14:30 | HHI.PR ---
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 Patient denies any new complaints. No change in clinical status. Awaiting case management for discharge planning. Objective Vitals Vital Signs Date Time Temp Pulse Resp B/P (MAP) Pulse Ox O2 Delivery O2 Flow Rate FiO2 03/09/17 08:00 97.6 81 17 112/79 (90) 95 03/08/17 20:00 97.2 73 20 102/78 (86) 98 I/O 03/08/17 03/08/17 03/08/17 03/09/17 03/09/17 03/09/17 07:00 15:00 23:00 07:00 15:00 23:00 Intake Total 0 ml 0 ml Output Total 250 ml 1000 ml 225 ml Balance -250 ml -1000 ml -225 ml Intake Oral 0 ml 0 ml Output Urine Total 250 ml 1000 ml 225 ml # Bowel Movements 0 1 0 0 Objective Remarks GENERAL: Well-developed, cachectic and contracted. HEENT: Head is normocephalic without any lesions or masses noted. Facial features are symmetric. Eyes: Extraocular muscles are intact. Conjunctivae were clear. NECK: Trachea midline no deviation. CARDIAC: Regular rhythm, tachycardia noted. S1/S2 are heard. No murmurs gallops or rubs. LUNGS: Clear to auscultation bilaterally. No wheeze, rhonchi or rales. No use of accessory muscles on inspiration or expiration. ABDOMEN: Soft, nontender. Nondistended. Bowel sounds heard in all 4 quadrants. No organomegaly or masses. Negative rebound, negative guarding. PEG tube noted without any excoriation. EXTREMITIES: No edema, pulses are equal bilaterally. No cyanosis or clubbing. Ulceration noted over his left lower extremity lateral malleolus Procedures 07/19/16 EGD with PEG tube placement 09/27/16 colonoscopy Urinary Catheter: Yes Assessment to: Continue Kowalski insert reason: Obstruction/Retention Date of Insertion: Mar 01, 2017 Vascular Central Line Catheter: No A/P Assessment and Plan Neuro-Behcet, history of frontal lobe CVA, encephalopathy, history of meningitis , Blurred vision/double vision, urinary retention, chronic No new changes on imaging. Patient was followed by neurology. Aphasic at baseline. 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 Decreased oral intake and dysphagia on initial presentation Speech therapy following intermittently. S/P barium swallow. Patient with severe dysphagia. GI was consulted and PEG tube was placed. Nursing staff indicates patient was having bolus feeding intolerance Dietary reconsulted and made recommendations Coccyx decubitus. Ankle ulceration Wound care nurse is following the patient for management Patient with specialty bed Mood disorder, depression Patient was evaluated by psychiatrist. Prozac 40 mg daily Seroquel 25 mg at bedtime Questionable hospital-acquired pneumonia/aspiration, resolved Patient remains asymptomatic, no fever, no leukocytosis, no significant tachycardia, no hypoxia Chest x-ray indicates minimal bibasilar densities greater right lower lobe Status post Levaquin 750 mg by mouth for 7 days Continue Lactinex Continue Duo nebs as needed Status post normal saline nebulizer for 3 days Diabetes Glucose continues to be well controlled, DVT Prophylaxis: Lovenox, TEDs/SCDs. Records reviewed, absolutely no change in present treatment plan Discharge Planning Case management for discharge planning, recent records indicate that planning on transferring back to [place], Ede Richardson Mar 09, 2017 14:30
[2017-03-09 20:00] VITALS: BP 104/79; PULSE 88; RESP 18; TEMP 96.6; O2SAT 95
[2017-03-09] MEDS: QUEtiapine FUMARATE 25 MG TAB PO SCH (22:00)
[2017-03-10] MEDS: azaTHIOprine 50 MG TAB PEG SCH ×2 (06:22→17:32)
[2017-03-10 08:00] VITALS: BP 95/67; PULSE 84; RESP 22; TEMP 95.4; O2SAT 96
[2017-03-10] MEDS: SENNOSIDES SYRUP 8.8 MG/5 ML CUP PEG SCH (08:38)
[2017-03-10] MEDS: FLUoxetine HCL LIQUID 20 MG/5 ML CUP PEG SCH (08:38)
[2017-03-10] MEDS: ENOXAPARIN SODIUM 40 MG/0.4 ML SYRINGE SQ SCH (08:38)
[2017-03-10] MEDS: predniSONE 20 MG TAB PEG SCH (08:39)
[2017-03-10] MEDS: LACTOBACILLUS ACIDOPHILUS TAB PEG SCH ×2 (08:39→21:39)
[2017-03-10] MEDS: JUVEN POWDER 1 PACK G-TUBE SCH ×2 (08:39→21:40)
[2017-03-10] MEDS: LACTIC ACID (AMMONIUM LACTATE) 12% LOTION 225 GM BTL TOPICAL SCH ×2 (08:39→21:39)
[2017-03-10] MEDS: LANSOPRAZOLE SOLUTAB 30 MG TAB PEG SCH ×2 (08:39→21:39)
--- NOTE | 2017-03-10 09:14 | HHI.PR ---
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 Patient lying in bed carefully. Nursing staff just cleaned him up from having normal bowel movement. No change in clinical status. Objective Vitals Vital Signs Date Time Temp Pulse Resp B/P (MAP) Pulse Ox O2 Delivery O2 Flow Rate FiO2 03/10/17 08:00 95.4 84 22 95/67 (76) 96 03/09/17 20:00 96.6 88 18 104/79 (87) 95 I/O 03/09/17 03/09/17 03/09/17 03/10/17 03/10/17 03/10/17 07:00 15:00 23:00 07:00 15:00 23:00 Intake Total 0 ml 0 ml Output Total 225 ml 300 ml 450 ml Balance -225 ml -300 ml -450 ml Intake Oral 0 ml 0 ml Output Urine Total 225 ml 300 ml 450 ml # Bowel Movements 0 0 Objective Remarks GENERAL: Well-developed, cachectic and contracted. HEENT: Head is normocephalic without any lesions or masses noted. Facial features are symmetric. Eyes: Extraocular muscles are intact. Conjunctivae were clear. NECK: Trachea midline no deviation. CARDIAC: Regular rhythm, tachycardia noted. S1/S2 are heard. No murmurs gallops or rubs. LUNGS: Clear to auscultation bilaterally. No wheeze, rhonchi or rales. No use of accessory muscles on inspiration or expiration. ABDOMEN: Soft, nontender. Nondistended. Bowel sounds heard in all 4 quadrants. No organomegaly or masses. Negative rebound, negative guarding. PEG tube noted without any excoriation. EXTREMITIES: No edema, pulses are equal bilaterally. No cyanosis or clubbing. Ulceration noted over his left lower extremity lateral malleolus Procedures 07/19/16 EGD with PEG tube placement 09/27/16 colonoscopy Urinary Catheter: Yes Assessment to: Continue Kowalski insert reason: Obstruction/Retention Date of Insertion: Mar 01, 2017 Vascular Central Line Catheter: No A/P Assessment and Plan Neuro-Behcet, history of frontal lobe CVA, encephalopathy, history of meningitis , Blurred vision/double vision, urinary retention, chronic No new changes on imaging. Patient was followed by neurology. Aphasic at baseline. 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 S/P barium swallow. Patient with severe dysphagia. GI was consulted and PEG tube was placed. Nursing staff indicates patient was having bolus feeding intolerance Dietary reconsulted and made recommendations Coccyx decubitus. Ankle ulceration Wound care nurse is following the patient for management Patient with specialty bed Mood disorder, depression Patient was evaluated by psychiatrist. Prozac 40 mg daily Seroquel 25 mg at bedtime Questionable hospital-acquired pneumonia/aspiration, resolved Patient remains asymptomatic, no fever, no leukocytosis, no significant tachycardia, no hypoxia Chest x-ray indicates minimal bibasilar densities greater right lower lobe Status post Levaquin 750 mg by mouth for 7 days Continue Lactinex Continue Duo nebs as needed Status post normal saline nebulizer for 3 days Diabetes Glucose continues to be well controlled, DVT Prophylaxis: Lovenox, TEDs/SCDs. Records reviewed, absolutely no change in present treatment plan Discharge Planning Case management for discharge planning, recent records indicate that planning on transferring back to [place], Ede Richardson Mar 10, 2017 09:14
[2017-03-10 20:02] VITALS: BP 121/86; PULSE 69; RESP 24; TEMP 98.7; O2SAT 92
[2017-03-10] MEDS: QUEtiapine FUMARATE 25 MG TAB PO SCH (21:39)
[2017-03-11] MEDS: azaTHIOprine 50 MG TAB PEG SCH ×2 (05:32→18:00)
[2017-03-11 08:32] VITALS: BP 104/74; PULSE 96; RESP 16; TEMP 97.8; O2SAT 96
[2017-03-11] MEDS: JUVEN POWDER 1 PACK G-TUBE SCH ×2 (09:00→22:12)
[2017-03-11] MEDS: LANSOPRAZOLE SOLUTAB 30 MG TAB PEG SCH ×2 (09:40→22:12)
[2017-03-11] MEDS: FLUoxetine HCL LIQUID 20 MG/5 ML CUP PEG SCH (09:40)
[2017-03-11] MEDS: LACTOBACILLUS ACIDOPHILUS TAB PEG SCH ×2 (09:40→22:12)
[2017-03-11] MEDS: predniSONE 20 MG TAB PEG SCH (09:41)
[2017-03-11] MEDS: ENOXAPARIN SODIUM 40 MG/0.4 ML SYRINGE SQ SCH (09:41)
[2017-03-11] MEDS: SENNOSIDES SYRUP 8.8 MG/5 ML CUP PEG SCH (09:42)
[2017-03-11] MEDS: LACTIC ACID (AMMONIUM LACTATE) 12% LOTION 225 GM BTL TOPICAL SCH ×2 (09:42→22:13)
--- NOTE | 2017-03-11 10:07 | HHI.PR ---
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 Patient denies any new complaints. No change in clinical status. Awaiting case management for discharge planning Objective Vitals Vital Signs Date Time Temp Pulse Resp B/P (MAP) Pulse Ox O2 Delivery O2 Flow Rate FiO2 03/11/17 08:32 97.8 96 16 104/74 (84) 96 03/10/17 20:02 98.7 69 24 121/86 (98) 92 I/O 03/10/17 03/10/17 03/10/17 03/11/17 03/11/17 03/11/17 07:00 15:00 23:00 07:00 15:00 23:00 Intake Total 0 ml 0 ml 60 ml 600 ml Output Total 450 ml 1200 ml 1000 ml Balance -450 ml 0 ml -1140 ml -400 ml Intake Oral 0 ml 0 ml Tube Feeding 600 ml Tube Irrigant 60 ml Output Urine Total 450 ml 1200 ml 1000 ml # Bowel Movements 0 Objective Remarks GENERAL: Well-developed, cachectic and contracted. HEENT: Head is normocephalic without any lesions or masses noted. Facial features are symmetric. Eyes: Extraocular muscles are intact. Conjunctivae were clear. NECK: Trachea midline no deviation. CARDIAC: Regular rhythm, tachycardia noted. S1/S2 are heard. No murmurs gallops or rubs. LUNGS: Clear to auscultation bilaterally. No wheeze, rhonchi or rales. No use of accessory muscles on inspiration or expiration. ABDOMEN: Soft, nontender. Nondistended. Bowel sounds heard in all 4 quadrants. No organomegaly or masses. Negative rebound, negative guarding. PEG tube noted without any excoriation. EXTREMITIES: No edema, pulses are equal bilaterally. No cyanosis or clubbing. Ulceration noted over his left lower extremity lateral malleolus Procedures 07/19/16 EGD with PEG tube placement 09/27/16 colonoscopy Urinary Catheter: Yes Assessment to: Continue Kowalski insert reason: Obstruction/Retention Date of Insertion: Mar 01, 2017 Vascular Central Line Catheter: No A/P Assessment and Plan Neuro-Behcet, history of frontal lobe CVA, encephalopathy, history of meningitis , Blurred vision/double vision, urinary retention, chronic No new changes on imaging. Patient was followed by neurology. Aphasic at baseline. 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 S/P barium swallow. Patient with severe dysphagia. GI was consulted and PEG tube was placed. Nursing staff indicates patient was having bolus feeding intolerance Dietary reconsulted and made recommendations Coccyx decubitus. Ankle ulceration Wound care nurse is following the patient for management Patient with specialty bed Mood disorder, depression Patient was evaluated by psychiatrist. Prozac 40 mg daily Seroquel 25 mg at bedtime Questionable hospital-acquired pneumonia/aspiration, resolved Patient remains asymptomatic, no fever, no leukocytosis, no significant tachycardia, no hypoxia Chest x-ray indicates minimal bibasilar densities greater right lower lobe Status post Levaquin 750 mg by mouth for 7 days Continue Lactinex Continue Duo nebs as needed Status post normal saline nebulizer for 3 days Diabetes Glucose continues to be well controlled, DVT Prophylaxis: Lovenox, TEDs/SCDs. Records reviewed, absolutely no change in present treatment plan Discharge Planning Case management for discharge planning, recent records indicate that planning on transferring back to [place], Ede Richardson Mar 11, 2017 10:07
[2017-03-11 20:32] VITALS: BP 114/85; PULSE 89; RESP 24; TEMP 98.9; O2SAT 93
[2017-03-11] MEDS: QUEtiapine FUMARATE 25 MG TAB PO SCH (22:12)
[2017-03-12] MEDS: azaTHIOprine 50 MG TAB PEG SCH ×2 (05:33→17:25)
[2017-03-12] MEDS: FLUoxetine HCL LIQUID 20 MG/5 ML CUP PEG SCH (08:32)
[2017-03-12] MEDS: SENNOSIDES SYRUP 8.8 MG/5 ML CUP PEG SCH (08:32)
[2017-03-12] MEDS: ENOXAPARIN SODIUM 40 MG/0.4 ML SYRINGE SQ SCH (08:32)
[2017-03-12] MEDS: LANSOPRAZOLE SOLUTAB 30 MG TAB PEG SCH ×2 (08:33→21:07)
[2017-03-12] MEDS: ACETAMINOPHEN/HYDROcodone 325 MG/5 MG TAB PEG PRN (08:35)
[2017-03-12] MEDS: LACTOBACILLUS ACIDOPHILUS TAB PEG SCH ×2 (08:36→21:07)
[2017-03-12] MEDS: predniSONE 20 MG TAB PEG SCH (08:36)
[2017-03-12] MEDS: JUVEN POWDER 1 PACK G-TUBE SCH ×2 (09:00→21:07)
[2017-03-12] MEDS: LACTIC ACID (AMMONIUM LACTATE) 12% LOTION 225 GM BTL TOPICAL SCH ×2 (09:00→21:06)
[2017-03-12 09:36] VITALS: BP 115/75; PULSE 92; RESP 16; TEMP 96.8; O2SAT 95
--- NOTE | 2017-03-12 10:25 | HHI.PR ---
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 Patient denies any new complaints. No change in clinical status. Awaiting case management for discharge planning Objective Vitals Vital Signs Date Time Temp Pulse Resp B/P (MAP) Pulse Ox O2 Delivery O2 Flow Rate FiO2 03/12/17 09:36 96.8 92 16 115/75 (88) 95 03/12/17 09:35 20 03/11/17 20:32 98.9 89 24 114/85 (95) 93 I/O 03/11/17 03/11/17 03/11/17 03/12/17 03/12/17 03/12/17 07:00 15:00 23:00 07:00 15:00 23:00 Intake Total 600 ml 630 ml Output Total 1000 ml 250 ml Balance -400 ml -250 ml 630 ml Tube Feeding 600 ml 600 ml Tube Irrigant 30 ml Output Urine Total 1000 ml 250 ml # Bowel Movements 1 Objective Remarks GENERAL: Well-developed, cachectic and contracted. HEENT: Head is normocephalic without any lesions or masses noted. Facial features are symmetric. Eyes: Extraocular muscles are intact. Conjunctivae were clear. NECK: Trachea midline no deviation. CARDIAC: Regular rhythm, tachycardia noted. S1/S2 are heard. No murmurs gallops or rubs. LUNGS: Clear to auscultation bilaterally. No wheeze, rhonchi or rales. No use of accessory muscles on inspiration or expiration. ABDOMEN: Soft, nontender. Nondistended. Bowel sounds heard in all 4 quadrants. No organomegaly or masses. Negative rebound, negative guarding. PEG tube noted without any excoriation. EXTREMITIES: No edema, pulses are equal bilaterally. No cyanosis or clubbing. Ulceration noted over his left lower extremity lateral malleolus Procedures 07/19/16 EGD with PEG tube placement 09/27/16 colonoscopy Urinary Catheter: Yes Assessment to: Continue Kowalski insert reason: Obstruction/Retention Date of Insertion: Mar 01, 2017 Vascular Central Line Catheter: No A/P Assessment and Plan Neuro-Behcet, history of frontal lobe CVA, encephalopathy, history of meningitis , Blurred vision/double vision, urinary retention, chronic No new changes on imaging. Patient was followed by neurology. Aphasic at baseline. 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 S/P barium swallow. Patient with severe dysphagia. GI was consulted and PEG tube was placed. Nursing staff indicates patient was having bolus feeding intolerance Dietary reconsulted and made recommendations Coccyx decubitus. Ankle ulceration Wound care nurse is following the patient for management Patient with specialty bed Mood disorder, depression Patient was evaluated by psychiatrist. Prozac 40 mg daily Seroquel 25 mg at bedtime Questionable hospital-acquired pneumonia/aspiration, resolved Patient remains asymptomatic, no fever, no leukocytosis, no significant tachycardia, no hypoxia Chest x-ray indicates minimal bibasilar densities greater right lower lobe Status post Levaquin 750 mg by mouth for 7 days Continue Lactinex Continue Duo nebs as needed Status post normal saline nebulizer for 3 days Diabetes Glucose continues to be well controlled, DVT Prophylaxis: Lovenox, TEDs/SCDs. Records reviewed, absolutely no change in present treatment plan Discharge Planning Case management for discharge planning, recent records indicate that planning on transferring back to [place], Ede Richardson Mar 12, 2017 10:25
[2017-03-12] MEDS: QUEtiapine FUMARATE 25 MG TAB PO SCH (21:07)
[2017-03-12 21:18] VITALS: BP 110/79; PULSE 75; RESP 20; TEMP 98.9; O2SAT 95
[2017-03-13] MEDS: azaTHIOprine 50 MG TAB PEG SCH ×2 (06:07→17:33)
[2017-03-13 07:03] LABS: AUTOMATED NEUTROPHIL # 8.5 TH/MM3 (1.8-7.7); BASOPHIL # 0.1 TH/MM3 (0-0.2); BASOPHIL % 0.6 % (0.0-2.0); EOSINOPHIL # 0.1 TH/MM3 (0-0.4); EOSINOPHIL % 0.7 % (0.0-4.0); HEMATOCRIT 37.7 % (39.0-51.0); HEMOGLOBIN 12.4 GM/DL (13.0-17.0); LYMPH % 21.5 % (9.0-44.0); LYMPHOCYTE # 2.5 TH/MM3 (1.0-4.8); MEAN CELL VOLUME 91.6 FL (80.0-100.0); MEAN CORPUSCULAR HEMOGLOBIN 30.2 PG (27.0-34.0); MEAN PLATELET VOLUME 9.6 FL (7.0-11.0); MONO % 4.7 % (0.0-8.0); MONOCYTE # 0.6 TH/MM3 (0-0.9); NEUT % 72.5 % (16.0-70.0); PLATELET COUNT 287 TH/MM3 (150-450); RED BLOOD COUNT 4.12 MIL/MM3 (4.50-5.90); WHITE BLOOD COUNT 11.8 TH/MM3 (4.0-11.0)
[2017-03-13 07:13] LABS: BICARBONATE 30.3 MEQ/L (21.0-32.0); MAGNESIUM 2.1 MG/DL (1.5-2.5)
[2017-03-13 07:16] LABS: CREATININE 0.77 MG/DL (0.60-1.30)
[2017-03-13 08:00] VITALS: BP 111/81; PULSE 86; RESP 16; TEMP 96.5; O2SAT 97
[2017-03-13] MEDS: SENNOSIDES SYRUP 8.8 MG/5 ML CUP PEG SCH (08:29)
[2017-03-13] MEDS: JUVEN POWDER 1 PACK G-TUBE SCH ×2 (09:00→21:31)
[2017-03-13] MEDS: LACTIC ACID (AMMONIUM LACTATE) 12% LOTION 225 GM BTL TOPICAL SCH ×2 (09:00→23:28)
[2017-03-13] MEDS: LACTOBACILLUS ACIDOPHILUS TAB PEG SCH ×2 (09:18→21:30)
[2017-03-13] MEDS: LANSOPRAZOLE SOLUTAB 30 MG TAB PEG SCH ×2 (09:18→21:31)
[2017-03-13] MEDS: predniSONE 20 MG TAB PEG SCH (09:19)
[2017-03-13] MEDS: ENOXAPARIN SODIUM 40 MG/0.4 ML SYRINGE SQ SCH (09:20)
[2017-03-13] MEDS: FLUoxetine HCL LIQUID 20 MG/5 ML CUP PEG SCH (09:20)
--- NOTE | 2017-03-13 10:02 | HHI.PR ---
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 Patient denies any new complaints. No change in clinical status. Awaiting case management discharge planning Objective Vitals Vital Signs Date Time Temp Pulse Resp B/P (MAP) Pulse Ox O2 Delivery O2 Flow Rate FiO2 03/13/17 08:00 96.5 86 16 111/81 (91) 97 03/12/17 21:18 98.9 75 20 110/79 (89) 95 I/O 03/12/17 03/12/17 03/12/17 03/13/17 03/13/17 03/13/17 07:00 15:00 23:00 07:00 15:00 23:00 Intake Total 630 ml 1240 ml Output Total 800 ml Balance 630 ml 440 ml Tube Feeding 600 ml 760 ml Tube Irrigant 30 ml 480 ml Output Urine Total 800 ml # Bowel Movements 1 2 Result Diagram: 03/13/17 0557 03/13/17 0557 Objective Remarks GENERAL: Well-developed, cachectic and contracted. HEENT: Head is normocephalic without any lesions or masses noted. Facial features are symmetric. Eyes: Extraocular muscles are intact. Conjunctivae were clear. NECK: Trachea midline no deviation. CARDIAC: Regular rhythm, tachycardia noted. S1/S2 are heard. No murmurs gallops or rubs. LUNGS: Clear to auscultation bilaterally. No wheeze, rhonchi or rales. No use of accessory muscles on inspiration or expiration. ABDOMEN: Soft, nontender. Nondistended. Bowel sounds heard in all 4 quadrants. No organomegaly or masses. Negative rebound, negative guarding. PEG tube noted without any excoriation. EXTREMITIES: No edema, pulses are equal bilaterally. No cyanosis or clubbing. Ulceration noted over his left lower extremity lateral malleolus Procedures 07/19/16 EGD with PEG tube placement 09/27/16 colonoscopy Urinary Catheter: Yes Assessment to: Continue Kowalski insert reason: Obstruction/Retention Date of Insertion: Mar 01, 2017 Vascular Central Line Catheter: No A/P Assessment and Plan Neuro-Behcet, history of frontal lobe CVA, encephalopathy, history of meningitis , Blurred vision/double vision, urinary retention, chronic No new changes on imaging. Patient was followed by neurology. Aphasic at baseline. 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 S/P barium swallow. Patient with severe dysphagia. GI was consulted and PEG tube was placed. Nursing staff indicates patient was having bolus feeding intolerance Dietary reconsulted and made recommendations Coccyx decubitus. Ankle ulceration Wound care nurse is following the patient for management Patient with specialty bed Mood disorder, depression Patient was evaluated by psychiatrist. Prozac 40 mg daily Seroquel 25 mg at bedtime Diabetes Glucose continues to be well controlled, DVT Prophylaxis: Lovenox, TEDs/SCDs. absolutely no change in present treatment plan, Records reviewed, Discharge Planning Case management for discharge planning, recent records indicate that planning on transferring back to [place], Ede Richardson Mar 13, 2017 10:02
[2017-03-13 20:00] VITALS: BP 108/87; PULSE 89; RESP 20; TEMP 97.5; O2SAT 97
[2017-03-13] MEDS: QUEtiapine FUMARATE 25 MG TAB PO SCH (21:31)
[2017-03-14] MEDS: azaTHIOprine 50 MG TAB PEG SCH ×2 (05:04→18:00)
[2017-03-14 08:00] VITALS: BP 105/84; PULSE 102; RESP 21; TEMP 97.2; O2SAT 93
[2017-03-14 08:15] VITALS: O2SAT 92
[2017-03-14] MEDS: JUVEN POWDER 1 PACK G-TUBE SCH ×2 (09:00→21:22)
--- NOTE | 2017-03-14 10:19 | HHI.PR ---
Subjective Remarks Follow up for neuro-Behcet's syndrome. Patient denies any shortness of breath. Denies any pain. Objective Vitals Vital Signs Date Time Temp Pulse Resp B/P (MAP) Pulse Ox O2 Delivery O2 Flow Rate FiO2 03/14/17 08:15 92 03/13/17 20:00 97.5 89 20 108/87 (94) 97 I/O 03/13/17 03/13/17 03/13/17 03/14/17 03/14/17 03/14/17 07:00 15:00 23:00 07:00 15:00 23:00 Intake Total 1240 ml 630 ml Output Total 800 ml 800 ml 550 ml Balance 440 ml -800 ml 80 ml Tube Feeding 760 ml 600 ml Tube Irrigant 480 ml 30 ml Output Urine Total 800 ml 800 ml 550 ml # Bowel Movements 2 1 Result Diagram: 03/13/17 0557 03/13/17 0557 Objective Remarks GENERAL: Thin patient in no apparent distress. CARDIOVASCULAR: Tachycardic rate and regular rhythm. RESPIRATORY: Transmitted grunting upper respiratory sounds. GASTROINTESTINAL: Abdomen soft, non-tender, nondistended. NEUROLOGICAL: Awake and alert. Nods head to answer questions. PSYCHIATRIC: Stable mood and affect. 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's disease Status: Chronic (3) Sepsis ICD Code: A41.9 - Sepsis, unspecified organism Status: Resolved (4) Encephalopathy ICD Code: G93.40 - Encephalopathy, unspecified Status: Resolved (5) GI bleed ICD Code: K92.2 - Gastrointestinal hemorrhage, unspecified Status: Resolved (6) HCAP (healthcare-associated pneumonia) ICD Code: J18.9 - Pneumonia, unspecified organism Status: Resolved (7) UTI (urinary tract infection) ICD Code: N39.0 - Urinary tract infection, site not specified Status: Resolved (8) Leucocytosis ICD Code: D72.829 - Elevated white blood cell count, unspecified Status: Resolved (9) Fever ICD Code: R50.9 - Fever, unspecified Status: Resolved (10) Effusion of hip joint ICD Code: M25.459 - Effusion, unspecified hip Status: Acute (11) 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 Patient followed by neurology. Aphasic at baseline. Neurology following the patient Continue Imuran, prednisone EEG shows mild to moderate slowing at times of various depending on the epoch, there was no epileptic activity seen Continue PT/OT Palliative care following the patient and is still indicating the patient is making his own decisions, full code and full aggressive measures [place] as needed for pain. Blurred vision/Diplopia: Related to his neuro Behet's syndrome. -Ophthalmology evaluated patient on 01/11/17. 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 Recommends immunosuppressants and steroids which patient is currently on. Hospital acquired pneumonia: Stable -S/p Levaquin 750 mg x 7 days -Continue suctioning q6h -Continue Duonebs as needed Urinary retention: Stable. 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 -Monitor intake and output. -Patient will need to keep Kowalski in place as he is non-ambulatory. Change monthly. -Good urine output Diabetes: Stable HbA1c 6.6 on 09/25/16. Accu-checks and SSI were discontinued. SIRS/Sepsis, multiple episodes: Resolved. Coccyx decubitus wound: Wound culture with pseudo fluorescens/putida, group D enterococcus VRE which is sensitive to Zosyn. Patient did have one urine culture of Daphney parapsilosis, was treated with fluconazole for 10 days. Patient had episode of diarrhea, C. difficile cultures performed which was negative. Infectious disease consulted and last seen the patient on 10/18/16, at that time it was indicated to observe off antibiotics. 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 Would benefit from long-term steroids. Most recently treated for possible HAP on 02/05. Sinus tachycardia: Stable. S/p Lopressor TSH, free T3, free T4 were normal Melena, bright red blood in stool: Resolved Status post transfusion, emergently transferred to main hospital, emergent endoscopy GI evaluated and managed patient with emergent colonoscopy showing small ulcer in the colon Continue Prevacid Hemoglobin stable Hypotension: Improved. -Lopressor discontinued on 01/02. Prerenal azotemia: Resolved. S/p IVF Hypernatremia and hyperchloremia: Resolved. Continue free water flushes 200 cc every 4 hours Hypokalemia with mild hypomagnesemia: Improved s/p repletion. Decreased oral intake and dysphagia on initial presentation Speech therapy following intermittently. S/P barium swallow. Patient with severe dysphagia. GI consulted and PEG tube was placed. [facility] [employer] following. Due to vomiting tube feeding changed to low volume TwoCal HN, goal rate 50ml/hr. Free Water Flushes and additional free water flush with Maury bid. Coccyx decubitus: Wound care nurse is following. Follow recommendations. Specialty bed Ankle ulcer: R lateral malleolus. -Foam boots. -Wound care nurse following. Follow recommendations. Depression: Patient was evaluated by psychiatrist. Continue Prozac 40 mg daily and Seroquel 25 mg HS. Constipation: Improved. Continue scheduled Senna and Miralax prn. DVT Prophylaxis: Lovenox, TEDs/SCDs. Discharge Planning 01/27: pension manager called [facility] following up on assistance plan to transfer patient there, awaiting return call. 02/10: CM still awaiting call back. Problem Qualifiers (1) GI bleed: (2) UTI (urinary tract infection): (3) Effusion of hip joint: Mari Talamantes Mar 14, 2017 10:18
[2017-03-14] MEDS: ENOXAPARIN SODIUM 40 MG/0.4 ML SYRINGE SQ SCH (11:12)
[2017-03-14] MEDS: LACTOBACILLUS ACIDOPHILUS TAB PEG SCH ×2 (11:12→21:21)
[2017-03-14] MEDS: predniSONE 20 MG TAB PEG SCH (11:12)
[2017-03-14] MEDS: FLUoxetine HCL LIQUID 20 MG/5 ML CUP PEG SCH (11:12)
[2017-03-14] MEDS: LANSOPRAZOLE SOLUTAB 30 MG TAB PEG SCH ×2 (11:12→21:21)
[2017-03-14] MEDS: SENNOSIDES SYRUP 8.8 MG/5 ML CUP PEG SCH (11:12)
[2017-03-14] MEDS: LACTIC ACID (AMMONIUM LACTATE) 12% LOTION 225 GM BTL TOPICAL SCH ×2 (11:13→21:23)
[2017-03-14 20:00] VITALS: BP 92/76; PULSE 88; RESP 20; TEMP 98; O2SAT 92
[2017-03-14] MEDS: QUEtiapine FUMARATE 25 MG TAB PO SCH (21:21)
[2017-03-15] MEDS: azaTHIOprine 50 MG TAB PEG SCH ×2 (05:15→17:53)
[2017-03-15 08:00] VITALS: BP 106/76; PULSE 91; RESP 22; TEMP 98.6; O2SAT 96
[2017-03-15] MEDS: SENNOSIDES SYRUP 8.8 MG/5 ML CUP PEG SCH (09:00)
[2017-03-15] MEDS: ENOXAPARIN SODIUM 40 MG/0.4 ML SYRINGE SQ SCH (09:38)
[2017-03-15] MEDS: LACTIC ACID (AMMONIUM LACTATE) 12% LOTION 225 GM BTL TOPICAL SCH ×2 (09:39→21:45)
[2017-03-15] MEDS: predniSONE 20 MG TAB PEG SCH (09:39)
[2017-03-15] MEDS: LACTOBACILLUS ACIDOPHILUS TAB PEG SCH ×2 (09:39→21:44)
[2017-03-15] MEDS: LANSOPRAZOLE SOLUTAB 30 MG TAB PEG SCH ×2 (09:39→21:44)
[2017-03-15] MEDS: FLUoxetine HCL LIQUID 20 MG/5 ML CUP PEG SCH (09:39)
[2017-03-15] MEDS: JUVEN POWDER 1 PACK G-TUBE SCH ×3 (09:48→21:44)
--- NOTE | 2017-03-15 10:06 | HHI.PR ---
Subjective Remarks Follow-up for neuro-Behcet's syndrome. Patient denies any pain. Denies any shortness of breath. His head is against the side rail but he admits to feeling comfortable in his current position. Objective Vitals Vital Signs Date Time Temp Pulse Resp B/P (MAP) Pulse Ox O2 Delivery O2 Flow Rate FiO2 03/14/17 20:00 98.0 88 20 92/76 (81) 92 I/O 03/14/17 03/14/17 03/14/17 03/15/17 03/15/17 03/15/17 07:00 15:00 23:00 07:00 15:00 23:00 Intake Total 630 ml 700 ml Output Total 550 ml 400 ml 300 ml Balance 80 ml -400 ml 400 ml Tube Feeding 600 ml 600 ml Tube Irrigant 30 ml 100 ml Output Urine Total 550 ml 400 ml 300 ml # Bowel Movements 1 Result Diagram: 03/13/17 0557 03/13/17 0557 Objective Remarks GENERAL: Thin patient in no apparent distress. CARDIOVASCULAR: Tachycardic rate and regular rhythm. RESPIRATORY: Transmitted grunting upper respiratory sounds. GASTROINTESTINAL: Abdomen soft, non-tender, nondistended. PEG tube present. NEUROLOGICAL: Awake and alert. Nods head to answer questions. PSYCHIATRIC: Stable mood and affect. 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 (3) Sepsis ICD Code: A41.9 - Sepsis, unspecified organism Status: Resolved (4) Encephalopathy ICD Code: G93.40 - Encephalopathy, unspecified Status: Resolved (5) GI bleed ICD Code: K92.2 - Gastrointestinal hemorrhage, unspecified Status: Resolved (6) HCAP (healthcare-associated pneumonia) ICD Code: J18.9 - Pneumonia, unspecified organism Status: Resolved (7) UTI (urinary tract infection) ICD Code: N39.0 - Urinary tract infection, site not specified Status: Resolved (8) Leucocytosis ICD Code: D72.829 - Elevated white blood cell count, unspecified Status: Resolved (9) Fever ICD Code: R50.9 - Fever, unspecified Status: Resolved (10) Effusion of hip joint ICD Code: M25.459 - Effusion, unspecified hip Status: Acute (11) 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 Patient followed by neurology. Aphasic at baseline. Neurology following the patient Continue Imuran, prednisone EEG shows mild to moderate slowing at times of various depending on the epoch, there was no epileptic activity seen Continue PT/OT Palliative care following the patient and is still indicating the patient is making his own decisions, full code and full aggressive measures [place] as needed for pain. Blurred vision/Diplopia: Related to his neuro Behet's syndrome. -Ophthalmology evaluated patient on 01/11/17. 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 Recommends immunosuppressants and steroids which patient is currently on. Hospital acquired pneumonia: Stable -S/p Levaquin 750 mg x 7 days -Continue suctioning q6h -Continue Duonebs as needed Urinary retention: Stable. 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 -Monitor intake and output. -Patient will need to keep Kowalski in place as he is non-ambulatory. Change monthly. Diabetes: Stable HbA1c 6.6 on 09/25/16. Accu-checks and SSI were discontinued. SIRS/Sepsis, multiple episodes: Resolved. Coccyx decubitus wound: Wound culture with pseudo fluorescens/putida, group D enterococcus VRE which is sensitive to Zosyn. Patient did have one urine culture of Daphney parapsilosis, was treated with fluconazole for 10 days. Patient had episode of diarrhea, C. difficile cultures performed which was negative. Infectious disease consulted and last seen the patient on 10/18/16, at that time it was indicated to observe off antibiotics. 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 Would benefit from long-term steroids. Most recently treated for possible HAP on 02/05. Sinus tachycardia: Stable. S/p Lopressor TSH, free T3, free T4 were normal Melena, bright red blood in stool: Resolved Status post transfusion, emergently transferred to main hospital, emergent endoscopy GI evaluated and managed patient with emergent colonoscopy showing small ulcer in the colon Continue Prevacid Hemoglobin stable Hypotension: Improved. -Lopressor discontinued on 01/02. Prerenal azotemia: Resolved. S/p IVF Hypernatremia and hyperchloremia: Resolved. Continue free water flushes 200 cc every 4 hours Hypokalemia with mild hypomagnesemia: Improved s/p repletion. Decreased oral intake and dysphagia on initial presentation Speech therapy following intermittently. S/P barium swallow. Patient with severe dysphagia. GI consulted and PEG tube was placed. Cosmetic Consultant following. Due to vomiting tube feeding changed to low volume TwoCal HN, goal rate 50ml/hr. Free Water Flushes and additional free water flush with Maury bid. Coccyx decubitus: Wound care nurse is following. Follow recommendations. Specialty bed Ankle ulcer: R lateral malleolus. -Foam boots. -Wound care nurse following. Follow recommendations. Depression: Patient was evaluated by psychiatrist. Continue Prozac 40 mg daily and Seroquel 25 mg HS. Constipation: Improved. Continue scheduled Senna and Miralax prn. DVT Prophylaxis: Lovenox, TEDs/SCDs. Discharge Planning 01/27: all source collection manager called [facility] following up on assistance plan to transfer patient there, awaiting return call. 02/10: CM still awaiting call back. Problem Qualifiers (1) GI bleed: (2) UTI (urinary tract infection): (3) Effusion of hip joint: Mari Talamantes Mar 15, 2017 10:06
[2017-03-15 20:00] VITALS: BP 109/80; PULSE 88; RESP 18; TEMP 97.1; O2SAT 96
[2017-03-15] MEDS: QUEtiapine FUMARATE 25 MG TAB PO SCH (21:44)
[2017-03-15] MEDS: HYOSCYAMINE SOLN 0.125 MG/ML 15 ML BTL PEG PRN (21:50)
[2017-03-16] MEDS: azaTHIOprine 50 MG TAB PEG SCH ×2 (05:33→17:26)
[2017-03-16] MEDS: LACTIC ACID (AMMONIUM LACTATE) 12% LOTION 225 GM BTL TOPICAL SCH ×2 (09:00→21:27)
[2017-03-16] MEDS: predniSONE 20 MG TAB PEG SCH (09:00)
[2017-03-16] MEDS: JUVEN POWDER 1 PACK G-TUBE SCH ×2 (09:00→21:27)
[2017-03-16 09:39] VITALS: BP 127/79; PULSE 108; RESP 20; TEMP 98.4; O2SAT 98
[2017-03-16] MEDS: ENOXAPARIN SODIUM 40 MG/0.4 ML SYRINGE SQ SCH (09:49)
[2017-03-16] MEDS: LANSOPRAZOLE SOLUTAB 30 MG TAB PEG SCH ×2 (09:49→21:26)
[2017-03-16] MEDS: LACTOBACILLUS ACIDOPHILUS TAB PEG SCH ×2 (09:49→21:26)
[2017-03-16] MEDS: FLUoxetine HCL LIQUID 20 MG/5 ML CUP PEG SCH (09:49)
[2017-03-16] MEDS: SENNOSIDES SYRUP 8.8 MG/5 ML CUP PEG SCH (09:50)
--- NOTE | 2017-03-16 11:11 | HHI.PR ---
Subjective Remarks Follow-up for neuro Behet's syndrome. The patient holds his left hand to the left side of his face trying to speak and trying to indicate problem. Upon yes/ no questioning patient again admits to blurred vision in the left eye. Denies any pain or itching in the eye. He has saliva at the mouth and coughs, audible secretions, but denies SOB. I asked the RN to suction the secretions. Objective Vitals Vital Signs Date Time Temp Pulse Resp B/P (MAP) Pulse Ox O2 Delivery O2 Flow Rate FiO2 03/16/17 09:39 98.4 108 20 127/79 (95) 98 03/15/17 20:00 97.1 88 18 109/80 (90) 96 I/O 03/15/17 03/15/17 03/15/17 03/16/17 03/16/17 03/16/17 07:00 15:00 23:00 07:00 15:00 23:00 Intake Total 700 ml 800 ml 660 ml Output Total 300 ml 400 ml 1200 ml Balance 400 ml -400 ml 800 ml -540 ml Tube Feeding 600 ml 600 ml 600 ml Tube Irrigant 100 ml 200 ml 60 ml Output Urine Total 300 ml 400 ml 1200 ml # Bowel Movements 1 2 Result Diagram: 03/13/17 0557 03/13/17 0557 Objective Remarks GENERAL: Thin patient in no apparent distress. EYES: Pupils equal in size. No conjunctival injection. Patient able to see the correct number of fingers held up, but each eye not individually assessed. CARDIOVASCULAR: Regular rhythm. RESPIRATORY: Transmitted grunting upper respiratory sounds, but clear otherwise. GASTROINTESTINAL: Abdomen soft, non-tender, nondistended. PEG tube present. NEUROLOGICAL: Awake and alert. Nods head to answer questions. Able to raise Left hand. PSYCHIATRIC: Stable mood and affect. 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 (3) Sepsis ICD Code: A41.9 - Sepsis, unspecified organism Status: Resolved (4) Encephalopathy ICD Code: G93.40 - Encephalopathy, unspecified Status: Resolved (5) GI bleed ICD Code: K92.2 - Gastrointestinal hemorrhage, unspecified Status: Resolved (6) HCAP (healthcare-associated pneumonia) ICD Code: J18.9 - Pneumonia, unspecified organism Status: Resolved (7) UTI (urinary tract infection) ICD Code: N39.0 - Urinary tract infection, site not specified Status: Resolved (8) Leucocytosis ICD Code: D72.829 - Elevated white blood cell count, unspecified Status: Resolved (9) Fever ICD Code: R50.9 - Fever, unspecified Status: Resolved (10) Effusion of hip joint ICD Code: M25.459 - Effusion, unspecified hip Status: Acute (11) 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 Patient followed by neurology. Aphasic at baseline. Neurology following the patient Continue Imuran, prednisone EEG shows mild to moderate slowing at times of various depending on the epoch, there was no epileptic activity seen Continue PT/OT Palliative care following the patient and is still indicating the patient is making his own decisions, full code and full aggressive measures [place] as needed for pain. Blurred vision/Diplopia: Related to his neuro Behet's syndrome. -Ophthalmology evaluated patient on 01/11/17. 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 Recommends immunosuppressants and steroids which patient is currently on. -03/16: Again c/o blurred vision, but this has been evaluated. Hospital acquired pneumonia: Stable -S/p Levaquin 750 mg x 7 days -Continue suctioning q6h/ prn. -Continue Levsin. -Continue Duonebs as needed Urinary retention: Stable. 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 -Monitor intake and output. -Patient will need to keep Kowalski in place as he is non-ambulatory. Change monthly. Diabetes: Stable HbA1c 6.6 on 09/25/16. Accu-checks and SSI were discontinued. SIRS/Sepsis, multiple episodes: Resolved. Coccyx decubitus wound: Wound culture with pseudo fluorescens/putida, group D enterococcus VRE which is sensitive to Zosyn. Patient did have one urine culture of Daphney parapsilosis, was treated with fluconazole for 10 days. Patient had episode of diarrhea, C. difficile cultures performed which was negative. Infectious disease consulted and last seen the patient on 10/18/16, at that time it was indicated to observe off antibiotics. 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 Would benefit from long-term steroids. Most recently treated for possible HAP on 02/05. Sinus tachycardia: Stable. S/p Lopressor TSH, free T3, free T4 were normal Melena, bright red blood in stool: Resolved Status post transfusion, emergently transferred to [facility], emergent endoscopy GI evaluated and managed patient with emergent colonoscopy showing small ulcer in the colon Continue Prevacid Hemoglobin stable Hypotension: Improved. -Lopressor discontinued on 01/02. Prerenal azotemia: Resolved. S/p IVF Hypernatremia and hyperchloremia: Resolved. Continue free water flushes 200 cc every 4 hours Hypokalemia with mild hypomagnesemia: Improved s/p repletion. Decreased oral intake and dysphagia on initial presentation Speech therapy following intermittently. S/P barium swallow. Patient with severe dysphagia. GI consulted and PEG tube was placed. Web Merchant following. Due to vomiting tube feeding changed to low volume TwoCal HN, goal rate 50ml/hr. Free Water Flushes and additional free water flush with Maury bid. Coccyx decubitus: Wound care nurse is following. Follow recommendations. Specialty bed Ankle ulcer: R lateral malleolus. -Foam boots. -Wound care nurse following. Follow recommendations. Depression: Patient was evaluated by psychiatrist. Continue Prozac 40 mg daily and Seroquel 25 mg HS. Constipation: Improved. Continue scheduled Senna and Miralax prn. DVT Prophylaxis: Lovenox, TEDs/SCDs. Discharge Planning 01/27: assistant auto center manager [facility] following up on assistance plan to transfer patient there, awaiting return call. 02/10: CM still awaiting call back. Problem Qualifiers (1) GI bleed: (2) UTI (urinary tract infection): (3) Effusion of hip joint: Mari Talamantes Mar 16, 2017 11:06
[2017-03-16 20:00] VITALS: BP 80/63; PULSE 87; RESP 16; TEMP 97.7; O2SAT 97
[2017-03-16] MEDS: QUEtiapine FUMARATE 25 MG TAB PO SCH (21:27)
[2017-03-17] MEDS: azaTHIOprine 50 MG TAB PEG SCH ×2 (06:12→17:26)
[2017-03-17] MEDS: SENNOSIDES SYRUP 8.8 MG/5 ML CUP PEG SCH (08:15)
[2017-03-17 08:18] VITALS: BP 83/67; PULSE 65; RESP 19; TEMP 98; O2SAT 98
[2017-03-17] MEDS: LACTIC ACID (AMMONIUM LACTATE) 12% LOTION 225 GM BTL TOPICAL SCH ×2 (09:00→22:17)
--- NOTE | 2017-03-17 10:00 | HHI.PR ---
Subjective Remarks Follow-up for neuro-Behet's syndrome. No acute complaints. Patient hypotensive this morning and last night. Day RN tells me that night RN had to suction patient, but no vomiting reported. Objective Vitals Vital Signs Date Time Temp Pulse Resp B/P (MAP) Pulse Ox O2 Delivery O2 Flow Rate FiO2 03/17/17 08:18 98.0 65 19 83/67 (72) 98 03/16/17 20:00 97.7 87 16 80/63 (69) 97 I/O 03/16/17 03/16/17 03/16/17 03/17/17 03/17/17 03/17/17 07:00 15:00 23:00 07:00 15:00 23:00 Intake Total 660 ml 1762 ml 506 ml Output Total 1200 ml Balance -540 ml 1762 ml 506 ml Tube Feeding 600 ml 1282 ml 308 ml Tube Irrigant 60 ml Other 480 ml 198 ml Output Urine Total 1200 ml # Bowel Movements 2 1 Result Diagram: 03/13/17 0557 03/13/17 0557 Objective Remarks GENERAL: Thin patient in no apparent distress. CARDIOVASCULAR: Regular rate and rhythm. RESPIRATORY: Transmitted grunting upper respiratory sounds. GASTROINTESTINAL: Abdomen soft, non-tender, nondistended. PEG tube present. NEUROLOGICAL: Awake and alert. Nods head to answer questions. PSYCHIATRIC: Stable mood and affect. 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's disease Status: Chronic (3) Sepsis ICD Code: A41.9 - Sepsis, unspecified organism Status: Resolved (4) Encephalopathy ICD Code: G93.40 - Encephalopathy, unspecified Status: Resolved (5) GI bleed ICD Code: K92.2 - Gastrointestinal hemorrhage, unspecified Status: Resolved (6) HCAP (healthcare-associated pneumonia) ICD Code: J18.9 - Pneumonia, unspecified organism Status: Resolved (7) UTI (urinary tract infection) ICD Code: N39.0 - Urinary tract infection, site not specified Status: Resolved (8) Leucocytosis ICD Code: D72.829 - Elevated white blood cell count, unspecified Status: Resolved (9) Fever ICD Code: R50.9 - Fever, unspecified Status: Resolved (10) Effusion of hip joint ICD Code: M25.459 - Effusion, unspecified hip Status: Acute (11) 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 Has not been using [place]. Not on any anti-hypertensives. Urine output was not documented for the last 24 hours, but day prior to he had good output. Has had hypotension in the past but never this low. CBC w/diff with white blood cell count 13.3 elevated from 11.8 on 03/13 , but neutrophil count is stable at 72.4%; not significantly elevated. Hemoglobin stable at 12.4. -Check vitals q4h today. -Noon BP improved at 97/68 with improved MAP of 78. Continue to monitor vitals. RN tells me urine is yellow; she is advised to monitor output. No need for IV fluids or further workup at this point as long as BP continues to improve. Leukocytosis: Worse. WBC 11.8-->13.3. May be related to prednisone use although no recent change in dose. May be more likely related to Behcet's syndrome as patient has had leukocytosis without infection in the past. On lung exam, aside from grunting there were no obvious rales and O2 saturation is 98% on room air. The patient remains afebrile with normal heart rate. I do not believe chest x -ray or UA are necessary at this time. -Will repeat am CBC and monitor clinically. Prerenal azotemia: Improved. S/p IVF BUN 34 on 03/13 03/17: Repeat BMP this morning with improved BUN of 20. Monitor periodically. Neuro Behet's, history of frontal lobe CVA, encephalopathy, history of meningitis, chronic No new changes on imaging. Patient followed by neurology. Aphasic at baseline. Neurology following the patient Continue Imuran, prednisone EEG shows mild to moderate slowing at times of various depending on the epoch, there was no epileptic activity seen Continue PT/OT Palliative care following the patient and is still indicating the patient is making his own decisions, full code and full aggressive measures 03/17: Stop Suring as patient has not used since 03/12. Blurred vision/Diplopia: Related to his neuro Behet's syndrome. -Ophthalmology evaluated patient on 01/11/17. 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 Recommends immunosuppressants and steroids which patient is currently on. Hospital acquired pneumonia: Stable -S/p Levaquin 750 mg x 7 days -Continue suctioning q6h/ prn. -Continue Levsin. -Continue Duonebs as needed Urinary retention: Stable. 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 -Monitor intake and output. -Patient will need to keep Kowalski in place as he is non-ambulatory. Change monthly. Diabetes: Stable HbA1c 6.6 on 09/25/16. Accu-checks and SSI were discontinued. SIRS/Sepsis, multiple episodes: Resolved. Coccyx decubitus wound: Wound culture with pseudo fluorescens/putida, group D enterococcus VRE which is sensitive to Zosyn. Patient did have one urine culture of Daphney parapsilosis, was treated with fluconazole for 10 days. Patient had episode of diarrhea, C. difficile cultures performed which was negative. Infectious disease consulted and last seen the patient on 10/18/16, at that time it was indicated to observe off antibiotics. 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 Would benefit from long-term steroids. Most recently treated for possible HAP on 02/05. Sinus tachycardia: Stable. S/p Lopressor TSH, free T3, free T4 were normal Melena, bright red blood in stool: Resolved Status post transfusion, emergently transferred to [facility], emergent endoscopy GI evaluated and managed patient with emergent colonoscopy showing small ulcer in the colon Continue Prevacid Hemoglobin stable Hypernatremia and hyperchloremia: Resolved. Continue free water flushes 200 cc every 4 hours Hypokalemia with mild hypomagnesemia: Improved s/p repletion. Decreased oral intake and dysphagia on initial presentation Speech therapy following intermittently. S/P barium swallow. Patient with severe dysphagia. GI consulted and PEG tube was placed. Bitumen Plant Operator following. Due to vomiting tube feeding changed to low volume TwoCal HN, goal rate 50ml/hr. Free Water Flushes and additional free water flush with Maury bid. Coccyx decubitus: Wound care nurse is following. Follow recommendations. Specialty bed Ankle ulcer: R lateral malleolus. -Foam boots. -Wound care nurse following. Follow recommendations. Depression: Patient was evaluated by psychiatrist. Continue Prozac 40 mg daily and Seroquel 25 mg HS. Constipation: Improved. Continue scheduled Senna and Miralax prn. DVT Prophylaxis: Lovenox, TEDs/SCDs. Discharge Planning 01/27: e commerce marketing manager called [facility] following up on assistance plan to transfer patient there, awaiting return call. 02/10: CM still awaiting call back. Problem Qualifiers (1) GI bleed: (2) UTI (urinary tract infection): (3) Effusion of hip joint: Mari Talamantes Mar 17, 2017 10:00
[2017-03-17] MEDS: LANSOPRAZOLE SOLUTAB 30 MG TAB PEG SCH ×2 (10:45→22:16)
[2017-03-17] MEDS: predniSONE 20 MG TAB PEG SCH (10:45)
[2017-03-17] MEDS: LACTOBACILLUS ACIDOPHILUS TAB PEG SCH ×2 (10:45→22:16)
[2017-03-17] MEDS: FLUoxetine HCL LIQUID 20 MG/5 ML CUP PEG SCH (10:45)
[2017-03-17] MEDS: ENOXAPARIN SODIUM 40 MG/0.4 ML SYRINGE SQ SCH (10:46)
[2017-03-17] MEDS: JUVEN POWDER 1 PACK G-TUBE SCH ×2 (10:46→21:00)
[2017-03-17 11:00] LABS: AUTOMATED NEUTROPHIL # 9.6 TH/MM3 (1.8-7.7); BASOPHIL # 0.1 TH/MM3 (0-0.2); BASOPHIL % 0.5 % (0.0-2.0); EOSINOPHIL # 0.1 TH/MM3 (0-0.4); EOSINOPHIL % 0.6 % (0.0-4.0); HEMATOCRIT 38.2 % (39.0-51.0); HEMOGLOBIN 12.4 GM/DL (13.0-17.0); LYMPH % 22.5 % (9.0-44.0); MEAN CELL VOLUME 91.8 FL (80.0-100.0); MEAN CORPUSCULAR HEMOGLOBIN 29.9 PG (27.0-34.0); MEAN CORPUSCULAR HGB CONC 32.6 % (32.0-36.0); MEAN PLATELET VOLUME 8.7 FL (7.0-11.0); MONOCYTE # 0.5 TH/MM3 (0-0.9); NEUT % 72.4 % (16.0-70.0); PLATELET COUNT 370 TH/MM3 (150-450); RED BLOOD COUNT 4.15 MIL/MM3 (4.50-5.90); RED CELL DISTRIBUTION WIDTH 16.2 % (11.6-17.2); WHITE BLOOD COUNT 13.3 TH/MM3 (4.0-11.0)
[2017-03-17 11:08] LABS: BICARBONATE 29.4 MEQ/L (21.0-32.0); CALCIUM 9.1 MG/DL (8.5-10.1)
[2017-03-17 11:12] LABS: CREATININE 0.71 MG/DL (0.60-1.30)
[2017-03-17 12:34] VITALS: BP 97/68; PULSE 63; RESP 19; TEMP 98; O2SAT 98
[2017-03-17 16:59] VITALS: BP 105/77; PULSE 94; RESP 19; TEMP 98; O2SAT 100
[2017-03-17 20:00] VITALS: BP 110/79; PULSE 89; RESP 18; TEMP 98.3; O2SAT 99
[2017-03-17] MEDS: QUEtiapine FUMARATE 25 MG TAB PO SCH (21:00)
[2017-03-18] VITALS: BP 105/68; PULSE 70; RESP 20; TEMP 98; O2SAT 97
[2017-03-18] MEDS: azaTHIOprine 50 MG TAB PEG SCH ×2 (06:25→17:31)
[2017-03-18 08:00] VITALS: BP 108/80; PULSE 97; RESP 20; TEMP 98; O2SAT 97
[2017-03-18 08:21] LABS: AUTOMATED NEUTROPHIL # 9.6 TH/MM3 (1.8-7.7); BASOPHIL # 0.1 TH/MM3 (0-0.2); BASOPHIL % 0.9 % (0.0-2.0); EOSINOPHIL % 0.3 % (0.0-4.0); HEMATOCRIT 39.1 % (39.0-51.0); HEMOGLOBIN 12.6 GM/DL (13.0-17.0); LYMPH % 18.5 % (9.0-44.0); LYMPHOCYTE # 2.4 TH/MM3 (1.0-4.8); MEAN CELL VOLUME 91.9 FL (80.0-100.0); MEAN CORPUSCULAR HEMOGLOBIN 29.6 PG (27.0-34.0); MEAN CORPUSCULAR HGB CONC 32.2 % (32.0-36.0); MEAN PLATELET VOLUME 9.9 FL (7.0-11.0); MONO % 4.5 % (0.0-8.0); MONOCYTE # 0.6 TH/MM3 (0-0.9); NEUT % 75.8 % (16.0-70.0); PLATELET COUNT 380 TH/MM3 (150-450); RED BLOOD COUNT 4.25 MIL/MM3 (4.50-5.90); RED CELL DISTRIBUTION WIDTH 15.5 % (11.6-17.2); WHITE BLOOD COUNT 12.7 TH/MM3 (4.0-11.0)
[2017-03-18] MEDS: SENNOSIDES SYRUP 8.8 MG/5 ML CUP PEG SCH (09:13)
[2017-03-18] MEDS: ENOXAPARIN SODIUM 40 MG/0.4 ML SYRINGE SQ SCH (09:14)
[2017-03-18] MEDS: FLUoxetine HCL LIQUID 20 MG/5 ML CUP PEG SCH (09:15)
[2017-03-18] MEDS: LACTOBACILLUS ACIDOPHILUS TAB PEG SCH ×2 (09:15→20:48)
[2017-03-18] MEDS: predniSONE 20 MG TAB PEG SCH (09:15)
[2017-03-18] MEDS: LANSOPRAZOLE SOLUTAB 30 MG TAB PEG SCH ×2 (09:15→20:48)
[2017-03-18] MEDS: LACTIC ACID (AMMONIUM LACTATE) 12% LOTION 225 GM BTL TOPICAL SCH ×2 (09:16→20:49)
[2017-03-18] MEDS: JUVEN POWDER 1 PACK G-TUBE SCH ×2 (10:45→20:48)
--- NOTE | 2017-03-18 11:08 | HHI.PR ---
Subjective Remarks Patient with neuro-Behcet's syndrome. Follow up for leukocytosis, hypotension. Patient denies any fevers or chills, cough or shortness of breath, abdominal pain, vomiting, diarrhea, or pain. Objective Vitals Vital Signs Date Time Temp Pulse Resp B/P (MAP) Pulse Ox O2 Delivery O2 Flow Rate FiO2 03/18/17 08:00 98.0 97 20 108/80 (89) 97 03/18/17 04:39 03/18/17 00:00 98.0 70 20 105/68 (80) 97 03/17/17 20:00 98.3 89 18 110/79 (89) 99 03/17/17 16:59 98.0 94 19 105/77 (86) 100 03/17/17 12:34 98.0 63 19 97/68 (78) 98 I/O 03/17/17 03/17/17 03/17/17 03/18/17 03/18/17 03/18/17 07:00 15:00 23:00 07:00 15:00 23:00 Intake Total 506 ml Output Total 1250 ml Balance 506 ml -1250 ml Tube Feeding 308 ml Other 198 ml Output Urine Total 1250 ml # Bowel Movements 1 3 Result Diagram: 03/18/17 0630 03/17/17 1050 Objective Remarks GENERAL: Thin patient in no apparent distress. CARDIOVASCULAR: Tachycardic rate and regular rhythm. RESPIRATORY: Transmitted grunting upper respiratory sounds, but no rales or wheezing. GASTROINTESTINAL: Abdomen soft, non-tender, nondistended. PEG tube present. At moments abdomen tenses up when he breathes. NEUROLOGICAL: Awake and alert. Nods head to answer questions. PSYCHIATRIC: Stable mood and affect. Urine in Kowalski bag is yellow and clear. 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 (3) Sepsis ICD Code: A41.9 - Sepsis, unspecified organism Status: Resolved (4) Encephalopathy ICD Code: G93.40 - Encephalopathy, unspecified Status: Resolved (5) GI bleed ICD Code: K92.2 - Gastrointestinal hemorrhage, unspecified Status: Resolved (6) HCAP (healthcare-associated pneumonia) ICD Code: J18.9 - Pneumonia, unspecified organism Status: Resolved (7) UTI (urinary tract infection) ICD Code: N39.0 - Urinary tract infection, site not specified Status: Resolved (8) Leucocytosis ICD Code: D72.829 - Elevated white blood cell count, unspecified Status: Resolved (9) Fever ICD Code: R50.9 - Fever, unspecified Status: Resolved (10) Effusion of hip joint ICD Code: M25.459 - Effusion, unspecified hip Status: Acute (11) 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 Good urine output documented. Hemoglobin stable. Leukocytosis: Improving. May be related to prednisone use although no recent change in dose. May be more likely related to Behcet's syndrome as patient has had leukocytosis without infection in the past. -03/18: WBC 13.3-->12.7. Remains afebrile. Good oxygen saturation. No further workup necessary at this time. -Monitor CBC periodically Prerenal azotemia: Improved. S/p IVF BUN 34 on 03/13 03/17: Repeat BMP this morning with improved BUN of 20. Monitor periodically. Neuro Behet's, history of frontal lobe CVA, encephalopathy, history of meningitis, chronic No new changes on imaging. Patient followed by neurology. Aphasic at baseline. Neurology following the patient Continue Imuran, prednisone EEG shows mild to moderate slowing at times of various depending on the epoch, there was no epileptic activity seen Continue PT/OT Palliative care following the patient and is still indicating the patient is making his own decisions, full code and full aggressive measures [place] discontinued on 03/17 Blurred vision/Diplopia: Related to his neuro Behet's syndrome. -Ophthalmology evaluated patient on 01/11/17. 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 Recommends immunosuppressants and steroids which patient is currently on. Hospital acquired pneumonia: Stable -S/p Levaquin 750 mg x 7 days -Continue suctioning q6h/ prn. -Continue Levsin. -Continue Duonebs as needed Urinary retention: Stable. 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 -Monitor intake and output. -Patient will need to keep Kowalski in place as he is non-ambulatory. Change monthly. Diabetes: Stable HbA1c 6.6 on 09/25/16. Accu-checks and SSI were discontinued. SIRS/Sepsis, multiple episodes: Resolved. Coccyx decubitus wound: Wound culture with pseudo fluorescens/putida, group D enterococcus VRE which is sensitive to Zosyn. Patient did have one urine culture of Daphney parapsilosis, was treated with fluconazole for 10 days. Patient had episode of diarrhea, C. difficile cultures performed which was negative. Infectious disease consulted and last seen the patient on 10/18/16, at that time it was indicated to observe off antibiotics. 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 Would benefit from long-term steroids. Most recently treated for possible HAP on 02/05. Sinus tachycardia: Stable. S/p Lopressor TSH, free T3, free T4 were normal Melena, bright red blood in stool: Resolved Status post transfusion, emergently transferred to [facility], emergent endoscopy GI evaluated and managed patient with emergent colonoscopy showing small ulcer in the colon Continue Prevacid Hemoglobin stable Hypernatremia and hyperchloremia: Resolved. Continue free water flushes 200 cc every 4 hours Hypokalemia with mild hypomagnesemia: Improved s/p repletion. Decreased oral intake and dysphagia on initial presentation Speech therapy following intermittently. S/P barium swallow. Patient with severe dysphagia. GI consulted and PEG tube was placed. Public Health Dentist following. Due to vomiting tube feeding changed to low volume TwoCal HN, goal rate 50ml/hr. Free Water Flushes and additional free water flush with Maury bid. Coccyx decubitus: Wound care nurse is following. Follow recommendations. Specialty bed Ankle ulcer: R lateral malleolus. -Foam boots. -Wound care nurse following. Follow recommendations. Depression: Patient was evaluated by psychiatrist. Continue Prozac 40 mg daily and Seroquel 25 mg HS. Constipation: Improved. Continue scheduled Senna and Miralax prn. DVT Prophylaxis: Lovenox, TEDs/SCDs. Discharge Planning 01/27: card room manager called [facility] following up on assistance plan to transfer patient there, awaiting return call. 02/10: CM still awaiting call back. Problem Qualifiers (1) GI bleed: (2) UTI (urinary tract infection): (3) Effusion of hip joint: Mari Talamantes Mar 18, 2017 11:08
[2017-03-18 12:00] VITALS: BP 112/81; PULSE 97; RESP 20; TEMP 98; O2SAT 96
[2017-03-18 16:00] VITALS: BP 100/74; PULSE 99; RESP 20; TEMP 98.8; O2SAT 97
[2017-03-18 20:00] VITALS: RESP 22
[2017-03-18] MEDS: QUEtiapine FUMARATE 25 MG TAB PO SCH (20:49)
[2017-03-19 00:02] VITALS: BP 95/65; PULSE 73; RESP 20; TEMP 97.6; O2SAT 94
[2017-03-19] MEDS: azaTHIOprine 50 MG TAB PEG SCH ×2 (06:00→17:26)
[2017-03-19 08:00] VITALS: BP 106/80; PULSE 97; RESP 20; TEMP 98.6; O2SAT 92
[2017-03-19] MEDS: SENNOSIDES SYRUP 8.8 MG/5 ML CUP PEG SCH (09:00)
[2017-03-19] MEDS: ENOXAPARIN SODIUM 40 MG/0.4 ML SYRINGE SQ SCH (09:35)
[2017-03-19] MEDS: predniSONE 20 MG TAB PEG SCH (09:35)
[2017-03-19] MEDS: LANSOPRAZOLE SOLUTAB 30 MG TAB PEG SCH ×2 (09:35→22:36)
[2017-03-19] MEDS: FLUoxetine HCL LIQUID 20 MG/5 ML CUP PEG SCH (09:35)
[2017-03-19] MEDS: LACTOBACILLUS ACIDOPHILUS TAB PEG SCH ×2 (09:35→22:36)
[2017-03-19] MEDS: LACTIC ACID (AMMONIUM LACTATE) 12% LOTION 225 GM BTL TOPICAL SCH ×2 (09:36→21:00)
[2017-03-19] MEDS: JUVEN POWDER 1 PACK G-TUBE SCH ×2 (09:36→22:36)
--- NOTE | 2017-03-19 11:34 | HHI.PR ---
Subjective Remarks Follow-up for neuro-Behcet's syndrome. Patient denies any pain or SOB. Objective Vitals Vital Signs Date Time Temp Pulse Resp B/P (MAP) Pulse Ox O2 Delivery O2 Flow Rate FiO2 03/19/17 08:00 98.6 97 20 106/80 (89) 92 03/19/17 04:12 03/19/17 00:02 97.6 73 20 95/65 (75) 94 03/18/17 20:00 22 03/18/17 16:00 98.8 99 20 100/74 (83) 97 03/18/17 12:00 98.0 97 20 112/81 (91) 96 I/O 03/18/17 03/18/17 03/18/17 03/19/17 03/19/17 03/19/17 06:59 14:59 22:59 06:59 14:59 22:59 Intake Total 0 ml 382 ml Output Total 1500 ml 1000 ml Balance -1500 ml -618 ml Intake Oral 0 ml Tube Feeding 322 ml Other 60 ml Output Urine Total 1500 ml 1000 ml # Bowel Movements 4 0 Result Diagram: 03/18/17 0630 03/17/17 1050 Objective Remarks GENERAL: Thin patient in no apparent distress. CARDIOVASCULAR: Tachycardic rate and regular rhythm. RESPIRATORY: Grunting respiratory sounds. GASTROINTESTINAL: Abdomen soft, non-tender, nondistended. PEG tube present. NEUROLOGICAL: Awake and alert. Nods head to answer questions. PSYCHIATRIC: Stable mood and affect. 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's disease Status: Chronic (3) Sepsis ICD Code: A41.9 - Sepsis, unspecified organism Status: Resolved (4) Encephalopathy ICD Code: G93.40 - Encephalopathy, unspecified Status: Resolved (5) GI bleed ICD Code: K92.2 - Gastrointestinal hemorrhage, unspecified Status: Resolved (6) HCAP (healthcare-associated pneumonia) ICD Code: J18.9 - Pneumonia, unspecified organism Status: Resolved (7) UTI (urinary tract infection) ICD Code: N39.0 - Urinary tract infection, site not specified Status: Resolved (8) Leucocytosis ICD Code: D72.829 - Elevated white blood cell count, unspecified Status: Resolved (9) Fever ICD Code: R50.9 - Fever, unspecified Status: Resolved (10) Effusion of hip joint ICD Code: M25.459 - Effusion, unspecified hip Status: Acute (11) 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 Good urine output documented. Hemoglobin stable. Leukocytosis: Improving. May be related to prednisone use although no recent change in dose. May be more likely related to Behcet's syndrome as patient has had leukocytosis without infection in the past. -03/18: WBC 13.3-->12.7. Remains afebrile. Good oxygen saturation. No further workup necessary at this time. -Monitor CBC periodically Prerenal azotemia: Improved. S/p IVF BUN 34 on 03/13 03/17: Repeat BMP this morning with improved BUN of 20. Monitor periodically. Neuro Behet's, history of frontal lobe CVA, encephalopathy, history of meningitis, chronic No new changes on imaging. Patient followed by neurology. Aphasic at baseline. Neurology following the patient Continue Imuran, prednisone EEG shows mild to moderate slowing at times of various depending on the epoch, there was no epileptic activity seen Continue PT/OT Palliative care following the patient and is still indicating the patient is making his own decisions, full code and full aggressive measures [place] discontinued on 03/17 Blurred vision/Diplopia: Related to his neuro Behet's syndrome. -Ophthalmology evaluated patient on 01/11/17. 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 Recommends immunosuppressants and steroids which patient is currently on. Hospital acquired pneumonia: Stable -S/p Levaquin 750 mg x 7 days -Continue suctioning q6h/ prn. -Continue Levsin. -Continue Duonebs as needed Urinary retention: Stable. 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 -Monitor intake and output. -Patient will need to keep Kowalski in place as he is non-ambulatory. Change monthly. Diabetes: Stable HbA1c 6.6 on 09/25/16. Accu-checks and SSI were discontinued. SIRS/Sepsis, multiple episodes: Resolved. Coccyx decubitus wound: Wound culture with pseudo fluorescens/putida, group D enterococcus VRE which is sensitive to Zosyn. Patient did have one urine culture of Daphney parapsilosis, was treated with fluconazole for 10 days. Patient had episode of diarrhea, C. difficile cultures performed which was negative. Infectious disease consulted and last seen the patient on 10/18/16, at that time it was indicated to observe off antibiotics. 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 Would benefit from long-term steroids. Most recently treated for possible HAP on 02/05. Sinus tachycardia: Stable. S/p Lopressor TSH, free T3, free T4 were normal Melena, bright red blood in stool: Resolved Status post transfusion, emergently transferred to [facility], emergent endoscopy GI evaluated and managed patient with emergent colonoscopy showing small ulcer in the colon Continue Prevacid Hemoglobin stable Hypernatremia and hyperchloremia: Resolved. Continue free water flushes 200 cc every 4 hours Hypokalemia with mild hypomagnesemia: Improved s/p repletion. Decreased oral intake and dysphagia on initial presentation Speech therapy following intermittently. S/P barium swallow. Patient with severe dysphagia. GI consulted and PEG tube was placed. Conference Planner following. Due to vomiting tube feeding changed to low volume TwoCal HN, goal rate 50ml/hr. Free Water Flushes and additional free water flush with Maury bid. Coccyx decubitus: Wound care nurse is following. Follow recommendations. Specialty bed Ankle ulcer: R lateral malleolus. -Foam boots. -Wound care nurse following. Follow recommendations. Depression: Patient was evaluated by psychiatrist. Continue Prozac 40 mg daily and Seroquel 25 mg HS. Constipation: Improved. Continue scheduled Senna and Miralax prn. DVT Prophylaxis: Lovenox, TEDs/SCDs. Discharge Planning 01/27: manager transportation [facility] following up on assistance plan to transfer patient there, awaiting return call. 02/10: CM still awaiting call back. Problem Qualifiers (1) GI bleed: (2) UTI (urinary tract infection): (3) Effusion of hip joint: Mari Talamantes Mar 19, 2017 11:34
[2017-03-19 12:00] VITALS: BP 117/93; PULSE 107; RESP 20; TEMP 99.3; O2SAT 96
[2017-03-19 15:50] VITALS: BP 112/85; PULSE 104; RESP 20; TEMP 98.5; O2SAT 97
[2017-03-19 21:11] VITALS: BP 108/80; PULSE 92; RESP 18; TEMP 97.3; O2SAT 97
[2017-03-19] MEDS: QUEtiapine FUMARATE 25 MG TAB PO SCH (22:36)
[2017-03-20] MEDS: azaTHIOprine 50 MG TAB PEG SCH ×2 (06:18→16:50)
[2017-03-20] MEDS: IBUPROFEN SUSP 100 MG/5 ML UDC PEG PRN (06:28)
[2017-03-20 08:00] VITALS: BP 108/80; PULSE 95; RESP 16; TEMP 97.5; O2SAT 94
[2017-03-20] MEDS: LANSOPRAZOLE SOLUTAB 30 MG TAB PEG SCH ×2 (08:11→21:40)
[2017-03-20] MEDS: SENNOSIDES SYRUP 8.8 MG/5 ML CUP PEG SCH (08:11)
[2017-03-20] MEDS: FLUoxetine HCL LIQUID 20 MG/5 ML CUP PEG SCH (08:12)
[2017-03-20] MEDS: predniSONE 20 MG TAB PEG SCH (08:12)
[2017-03-20] MEDS: JUVEN POWDER 1 PACK G-TUBE SCH ×2 (08:12→21:41)
[2017-03-20] MEDS: ENOXAPARIN SODIUM 40 MG/0.4 ML SYRINGE SQ SCH (08:12)
[2017-03-20] MEDS: LACTOBACILLUS ACIDOPHILUS TAB PEG SCH ×2 (08:12→21:40)
[2017-03-20] MEDS: LACTIC ACID (AMMONIUM LACTATE) 12% LOTION 225 GM BTL TOPICAL SCH ×2 (08:12→21:00)
[2017-03-20 08:30] VITALS: O2SAT 97
[2017-03-20] MEDS: RESP: ALBUTEROL 2.5 MG/IPRATROPIUM 0.5 MG NEB (PRN) NEB (08:30)
--- NOTE | 2017-03-20 09:34 | HHI.PR ---
Subjective Remarks Follow up for neuro-Behet's syndrome. Patient denies any shortness of breath. Denies pain. Objective Vitals Vital Signs Date Time Temp Pulse Resp B/P (MAP) Pulse Ox O2 Delivery O2 Flow Rate FiO2 03/20/17 08:30 97 21 03/20/17 08:00 97.5 95 16 108/80 (89) 94 03/20/17 00:04 03/19/17 21:11 97.3 92 18 108/80 (89) 97 03/19/17 15:50 98.5 104 20 112/85 (94) 97 03/19/17 12:00 99.3 107 20 117/93 (101) 96 I/O 03/19/17 03/19/17 03/19/17 03/20/17 03/20/17 03/20/17 07:00 15:00 23:00 07:00 15:00 23:00 Intake Total 382 ml 200 ml 996 ml Output Total 1000 ml 250 ml 1450 ml Balance -618 ml -50 ml 996 ml -1450 ml Tube Feeding 322 ml 600 ml Tube Irrigant 200 ml 396 ml Other 60 ml Output Urine Total 1000 ml 250 ml 1450 ml # Bowel Movements 2 Result Diagram: 03/18/17 0630 03/17/17 1050 Objective Remarks GENERAL: Thin patient in no apparent distress drooling. CARDIOVASCULAR: Tachycardic rate and regular rhythm. RESPIRATORY: Grunting/coarse respiratory sounds bilaterally. GASTROINTESTINAL: Abdomen soft, non-tender, nondistended. PEG tube present. NEUROLOGICAL: Awake and alert. Nods head to answer questions. PSYCHIATRIC: Stable mood and affect. 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 (3) Sepsis ICD Code: A41.9 - Sepsis, unspecified organism Status: Resolved (4) Encephalopathy ICD Code: G93.40 - Encephalopathy, unspecified Status: Resolved (5) GI bleed ICD Code: K92.2 - Gastrointestinal hemorrhage, unspecified Status: Resolved (6) HCAP (healthcare-associated pneumonia) ICD Code: J18.9 - Pneumonia, unspecified organism Status: Resolved (7) UTI (urinary tract infection) ICD Code: N39.0 - Urinary tract infection, site not specified Status: Resolved (8) Leucocytosis ICD Code: D72.829 - Elevated white blood cell count, unspecified Status: Resolved (9) Fever ICD Code: R50.9 - Fever, unspecified Status: Resolved (10) Effusion of hip joint ICD Code: M25.459 - Effusion, unspecified hip Status: Acute (11) 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 May be related to prednisone use although no recent change in dose. May be more likely related to Behcet's syndrome as patient has had leukocytosis without infection in the past. -03/18: WBC 13.3-->12.7. Remains afebrile. Good oxygen saturation. No further workup necessary at this time. -Monitor CBC periodically Prerenal azotemia: Improved. S/p IVF BUN 34 on 03/13 03/17: BUN 20. Monitor periodically. Hypotension: Improved Neuro Behet's, history of frontal lobe CVA, encephalopathy, history of meningitis, chronic No new changes on imaging. Patient followed by neurology. Aphasic at baseline. Neurology following the patient Continue Imuran, prednisone EEG shows mild to moderate slowing at times of various depending on the epoch, there was no epileptic activity seen Continue PT/OT Palliative care following the patient and is still indicating the patient is making his own decisions, full code and full aggressive measures Shock discontinued on 03/17 Blurred vision/Diplopia: Related to his neuro Behet's syndrome. -Ophthalmology evaluated patient on 01/11/17. 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 Recommends immunosuppressants and steroids which patient is currently on. Hospital acquired pneumonia: Stable -S/p Levaquin 750 mg x 7 days -Continue suctioning q6h/ prn. -Continue Levsin. -Continue Duonebs as needed Urinary retention: Stable. 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 -Monitor intake and output. -Patient will need to keep Kowalski in place as he is non-ambulatory. Change monthly. Diabetes: Stable HbA1c 6.6 on 09/25/16. Accu-checks and SSI were discontinued. SIRS/Sepsis, multiple episodes: Resolved. Coccyx decubitus wound: Wound culture with pseudo fluorescens/putida, group D enterococcus VRE which is sensitive to Zosyn. Patient did have one urine culture of Daphney parapsilosis, was treated with fluconazole for 10 days. Patient had episode of diarrhea, C. difficile cultures performed which was negative. Infectious disease consulted and last seen the patient on 10/18/16, at that time it was indicated to observe off antibiotics. 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 Would benefit from long-term steroids. Most recently treated for possible HAP on 02/05. Sinus tachycardia: Stable. S/p Lopressor TSH, free T3, free T4 were normal Melena, bright red blood in stool: Resolved Status post transfusion, emergently transferred to [facility], emergent endoscopy GI evaluated and managed patient with emergent colonoscopy showing small ulcer in the colon Continue Prevacid Hemoglobin stable Hypernatremia and hyperchloremia: Resolved. Continue free water flushes 200 cc every 4 hours Hypokalemia with mild hypomagnesemia: Improved s/p repletion. Decreased oral intake and dysphagia on initial presentation Speech therapy following intermittently. S/P barium swallow. Patient with severe dysphagia. GI consulted and PEG tube was placed. Licensed Optical Dispenser following. Due to vomiting tube feeding changed to low volume TwoCal HN, goal rate 50ml/hr. Free Water Flushes and additional free water flush with Maury bid. Coccyx decubitus: Wound care nurse is following. Follow recommendations. Specialty bed Ankle ulcer: R lateral malleolus. -Foam boots. -Wound care nurse following. Follow recommendations. Depression: Patient was evaluated by psychiatrist. Continue Prozac 40 mg daily and Seroquel 25 mg HS. Constipation: Improved. Continue scheduled Senna and Miralax prn. DVT Prophylaxis: Lovenox, TEDs/SCDs. Discharge Planning 01/27: cost estimating manager called [facility] following up on assistance plan to transfer patient there, awaiting return call. 02/10: CM still awaiting call back. Problem Qualifiers (1) GI bleed: (2) UTI (urinary tract infection): (3) Effusion of hip joint: Mari Talamantes Mar 20, 2017 09:34
[2017-03-20 20:00] VITALS: BP 100/81; PULSE 88; RESP 20; TEMP 96.6; O2SAT 98
[2017-03-20] MEDS: QUEtiapine FUMARATE 25 MG TAB PO SCH (21:40)
[2017-03-21] MEDS: azaTHIOprine 50 MG TAB PEG SCH ×2 (06:16→17:14)
[2017-03-21 08:00] VITALS: BP 114/87; PULSE 100; RESP 22; TEMP 98; O2SAT 97
[2017-03-21] MEDS: ENOXAPARIN SODIUM 40 MG/0.4 ML SYRINGE SQ SCH (08:34)
[2017-03-21] MEDS: SENNOSIDES SYRUP 8.8 MG/5 ML CUP PEG SCH (08:34)
[2017-03-21] MEDS: LANSOPRAZOLE SOLUTAB 30 MG TAB PEG SCH ×2 (08:35→23:09)
[2017-03-21] MEDS: LACTOBACILLUS ACIDOPHILUS TAB PEG SCH ×2 (08:35→23:09)
[2017-03-21] MEDS: FLUoxetine HCL LIQUID 20 MG/5 ML CUP PEG SCH (08:35)
[2017-03-21] MEDS: predniSONE 20 MG TAB PEG SCH (08:35)
[2017-03-21] MEDS: JUVEN POWDER 1 PACK G-TUBE SCH ×2 (08:35→21:00)
[2017-03-21] MEDS: LACTIC ACID (AMMONIUM LACTATE) 12% LOTION 225 GM BTL TOPICAL SCH ×2 (08:35→23:10)
--- NOTE | 2017-03-21 10:04 | HHI.PR ---
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 Patient denies any new complaints. No change in clinical status. Awaiting case management discharge planning. Objective Vitals Vital Signs Date Time Temp Pulse Resp B/P (MAP) Pulse Ox O2 Delivery O2 Flow Rate FiO2 03/21/17 08:00 98.0 100 22 114/87 (96) 97 03/20/17 20:00 96.6 88 20 100/81 (87) 98 I/O 03/20/17 03/20/17 03/20/17 03/21/17 03/21/17 03/21/17 07:00 15:00 23:00 07:00 15:00 23:00 Intake Total 0 ml Output Total 1700 ml 300 ml 450 ml Balance -1700 ml -300 ml -450 ml Intake Oral 0 ml Output Urine Total 1700 ml 300 ml 450 ml # Bowel Movements 2 Result Diagram: 03/18/17 0630 03/17/17 1050 Objective Remarks GENERAL: Well-developed, cachectic and contracted. HEENT: Head is normocephalic without any lesions or masses noted. Facial features are symmetric. Eyes: Extraocular muscles are intact. Conjunctivae were clear. NECK: Trachea midline no deviation. CARDIAC: Regular rhythm, tachycardia noted. S1/S2 are heard. No murmurs gallops or rubs. LUNGS: Clear to auscultation bilaterally. No wheeze, rhonchi or rales. No use of accessory muscles on inspiration or expiration. ABDOMEN: Soft, nontender. Nondistended. Bowel sounds heard in all 4 quadrants. No organomegaly or masses. Negative rebound, negative guarding. PEG tube noted without any excoriation. EXTREMITIES: No edema, pulses are equal bilaterally. No cyanosis or clubbing. Ulceration noted over his left lower extremity lateral malleolus Procedures 07/19/16 EGD with PEG tube placement 09/27/16 colonoscopy Urinary Catheter: Yes Assessment to: Continue Kowalski insert reason: Obstruction/Retention Date of Insertion: Mar 01, 2017 Vascular Central Line Catheter: No A/P Assessment and Plan Neuro-Behcet, history of frontal lobe CVA, encephalopathy, history of meningitis , Blurred vision/double vision, urinary retention, chronic No new changes on imaging. Patient was followed by neurology. Aphasic at baseline. 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 S/P barium swallow. Patient with severe dysphagia. GI was consulted and PEG tube was placed. Nursing staff indicates patient was having bolus feeding intolerance Dietary reconsulted and made recommendations Coccyx decubitus. Ankle ulceration Wound care nurse is following the patient for management Patient with specialty bed Mood disorder, depression Patient was evaluated by psychiatrist. Prozac 40 mg daily Seroquel 25 mg at bedtime Diabetes Glucose continues to be well controlled, DVT Prophylaxis: Lovenox, TEDs/SCDs. Records reviewed, no change in present treatment plan. Discharge Planning Case management for discharge planning, recent records indicate that planning on transferring back to [place], Ede Richardson Mar 21, 2017 10:04
[2017-03-21 20:00] VITALS: BP_SYST 100; BP_SYST 110; BP_DIAS 78; BP_DIAS 79; PULSE 82; PULSE 97; RESP 18; RESP 20; TEMP 96.1; TEMP 98.3; O2SAT 93; O2SAT 97
[2017-03-21] MEDS: QUEtiapine FUMARATE 25 MG TAB PO SCH (23:09)
[2017-03-22] MEDS: azaTHIOprine 50 MG TAB PEG SCH ×2 (06:15→17:20)
[2017-03-22 08:00] VITALS: BP 108/71; PULSE 94; RESP 20; TEMP 97.8; O2SAT 99
[2017-03-22] MEDS: LANSOPRAZOLE SOLUTAB 30 MG TAB PEG SCH ×2 (08:21→22:45)
[2017-03-22] MEDS: LACTOBACILLUS ACIDOPHILUS TAB PEG SCH ×2 (08:22→22:45)
[2017-03-22] MEDS: ENOXAPARIN SODIUM 40 MG/0.4 ML SYRINGE SQ SCH (08:22)
[2017-03-22] MEDS: LACTIC ACID (AMMONIUM LACTATE) 12% LOTION 225 GM BTL TOPICAL SCH ×2 (08:22→22:45)
[2017-03-22] MEDS: FLUoxetine HCL LIQUID 20 MG/5 ML CUP PEG SCH (08:22)
[2017-03-22] MEDS: JUVEN POWDER 1 PACK G-TUBE SCH ×2 (08:22→22:45)
[2017-03-22] MEDS: predniSONE 20 MG TAB PEG SCH (08:22)
[2017-03-22] MEDS: SENNOSIDES SYRUP 8.8 MG/5 ML CUP PEG SCH (08:22)
[2017-03-22] MEDS: PADIMATE (CHAPSTICK) 4.5 GM TUBE TOPICAL PRN (08:23)
--- NOTE | 2017-03-22 11:38 | HHI.PR ---
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 Patient lying in bed comfortably watching Pravin and Hemant on the TV. Patient does not indicate any new complaints. Awaiting case management for discharge planning Objective Vitals Vital Signs Date Time Temp Pulse Resp B/P (MAP) Pulse Ox O2 Delivery O2 Flow Rate FiO2 03/22/17 08:00 97.8 94 20 108/71 (83) 99 03/21/17 20:00 96.1 82 18 110/78 (89) 97 I/O 03/21/17 03/21/17 03/21/17 03/22/17 03/22/17 03/22/17 07:00 15:00 23:00 07:00 15:00 23:00 Intake Total 0 ml 4049 ml Output Total 450 ml 850 ml Balance -450 ml 3199 ml Intake Oral 0 ml 0 ml Tube Feeding 2350 ml Other 1699 ml Output Urine Total 450 ml 850 ml Result Diagram: 03/18/17 0630 Objective Remarks GENERAL: Well-developed, cachectic and contracted. HEENT: Head is normocephalic without any lesions or masses noted. Facial features are symmetric. Eyes: Extraocular muscles are intact. Conjunctivae were clear. NECK: Trachea midline no deviation. CARDIAC: Regular rhythm, tachycardia noted. S1/S2 are heard. No murmurs gallops or rubs. LUNGS: Clear to auscultation bilaterally. No wheeze, rhonchi or rales. No use of accessory muscles on inspiration or expiration. ABDOMEN: Soft, nontender. Nondistended. Bowel sounds heard in all 4 quadrants. No organomegaly or masses. Negative rebound, negative guarding. PEG tube noted without any excoriation. EXTREMITIES: No edema, pulses are equal bilaterally. No cyanosis or clubbing. Ulceration noted over his left lower extremity lateral malleolus Procedures 07/19/16 EGD with PEG tube placement 09/27/16 colonoscopy Urinary Catheter: Yes Assessment to: Continue Kowalski insert reason: Obstruction/Retention Date of Insertion: Mar 01, 2017 Vascular Central Line Catheter: No A/P Assessment and Plan Neuro-Behcet, history of frontal lobe CVA, encephalopathy, history of meningitis , Blurred vision/double vision, urinary retention, chronic No new changes on imaging. Patient was followed by neurology. Aphasic at baseline. 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 S/P barium swallow. Patient with severe dysphagia. GI was consulted and PEG tube was placed. Nursing staff indicates patient was having bolus feeding intolerance Dietary reconsulted and made recommendations Coccyx decubitus. Ankle ulceration Wound care nurse is following the patient for management Patient with specialty bed Mood disorder, depression Patient was evaluated by psychiatrist. Prozac 40 mg daily Seroquel 25 mg at bedtime Diabetes Glucose continues to be well controlled, DVT Prophylaxis: Lovenox, TEDs/SCDs. Records reviewed, no change in present treatment plan. Discharge Planning Case management for discharge planning, recent records indicate that planning on transferring back to [place], Ede Richardson Mar 22, 2017 11:38
[2017-03-22] MEDS: QUEtiapine FUMARATE 25 MG TAB PO SCH (22:45)
[2017-03-23] VITALS: BP 100/79; PULSE 97; RESP 20; TEMP 98.3; O2SAT 94
[2017-03-23] MEDS: azaTHIOprine 50 MG TAB PEG SCH ×2 (05:25→17:53)
[2017-03-23 08:00] VITALS: BP 104/76; PULSE 93; RESP 16; TEMP 98.3; O2SAT 98
[2017-03-23] MEDS: LANSOPRAZOLE SOLUTAB 30 MG TAB PEG SCH ×2 (08:02→20:45)
[2017-03-23] MEDS: ENOXAPARIN SODIUM 40 MG/0.4 ML SYRINGE SQ SCH (08:02)
[2017-03-23] MEDS: predniSONE 20 MG TAB PEG SCH (08:02)
[2017-03-23] MEDS: LACTOBACILLUS ACIDOPHILUS TAB PEG SCH ×2 (08:02→20:45)
[2017-03-23] MEDS: FLUoxetine HCL LIQUID 20 MG/5 ML CUP PEG SCH (08:02)
[2017-03-23] MEDS: SENNOSIDES SYRUP 8.8 MG/5 ML CUP PEG SCH (08:02)
[2017-03-23] MEDS: LACTIC ACID (AMMONIUM LACTATE) 12% LOTION 225 GM BTL TOPICAL SCH ×2 (08:03→20:43)
[2017-03-23] MEDS: PADIMATE (CHAPSTICK) 4.5 GM TUBE TOPICAL PRN (08:03)
[2017-03-23] MEDS: POLYETHYLENE GLYCOL 17 GM PKG PEG PRN (08:03)
[2017-03-23] MEDS: JUVEN POWDER 1 PACK G-TUBE SCH ×2 (08:03→20:43)
--- NOTE | 2017-03-23 08:53 | HHI.PR ---
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 Patient denies any new complaints today. No change in clinical status. Awaiting case management for discharge planning. Objective Vitals Vital Signs Date Time Temp Pulse Resp B/P (MAP) Pulse Ox O2 Delivery O2 Flow Rate FiO2 03/23/17 08:00 98.3 93 16 104/76 (85) 98 03/23/17 00:00 98.3 97 20 100/79 (86) 94 I/O 03/22/17 03/22/17 03/22/17 03/23/17 03/23/17 03/23/17 07:00 15:00 23:00 07:00 15:00 23:00 Intake Total 4049 ml 0 ml 1750 ml 0 ml Output Total 850 ml 275 ml 175 ml Balance 3199 ml -275 ml 1750 ml -175 ml Intake Oral 0 ml 0 ml 0 ml Tube Feeding 2350 ml 1200 ml Other 1699 ml 550 ml Output Urine Total 850 ml 275 ml 175 ml # Bowel Movements 0 1 Objective Remarks GENERAL: Well-developed, cachectic and contracted. HEENT: Head is normocephalic without any lesions or masses noted. Facial features are symmetric. Eyes: Extraocular muscles are intact. Conjunctivae were clear. NECK: Trachea midline no deviation. CARDIAC: Regular rhythm, tachycardia noted. S1/S2 are heard. No murmurs gallops or rubs. LUNGS: Clear to auscultation bilaterally. No wheeze, rhonchi or rales. No use of accessory muscles on inspiration or expiration. ABDOMEN: Soft, nontender. Nondistended. Bowel sounds heard in all 4 quadrants. No organomegaly or masses. Negative rebound, negative guarding. PEG tube noted without any excoriation. EXTREMITIES: No edema, pulses are equal bilaterally. No cyanosis or clubbing. Ulceration noted over his left lower extremity lateral malleolus Procedures 07/19/16 EGD with PEG tube placement 09/27/16 colonoscopy Urinary Catheter: Yes Assessment to: Continue Kowalski insert reason: Obstruction/Retention Date of Insertion: Mar 01, 2017 Vascular Central Line Catheter: No A/P Assessment and Plan Neuro-Behcet, history of frontal lobe CVA, encephalopathy, history of meningitis , Blurred vision/double vision, urinary retention, chronic No new changes on imaging. Patient was followed by neurology. Aphasic at baseline. 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 S/P barium swallow. Patient with severe dysphagia. GI was consulted and PEG tube was placed. Nursing staff indicates patient was having bolus feeding intolerance Dietary reconsulted and made recommendations Coccyx decubitus. Ankle ulceration Wound care nurse is following the patient for management Patient with specialty bed Mood disorder, depression Patient was evaluated by psychiatrist. Prozac 40 mg daily Seroquel 25 mg at bedtime Diabetes Glucose continues to be well controlled, DVT Prophylaxis: Lovenox, TEDs/SCDs. Records reviewed, no change in present treatment plan. Discharge Planning Case management for discharge planning, recent records indicate that planning on transferring back to [place], Ede Richardson Mar 23, 2017 08:53
[2017-03-23 15:30] VITALS: O2SAT 94
[2017-03-23 20:00] VITALS: BP 100/68; PULSE 88; RESP 18; TEMP 97.6; O2SAT 98
[2017-03-23] MEDS: QUEtiapine FUMARATE 25 MG TAB PO SCH (20:45)
[2017-03-24] MEDS: azaTHIOprine 50 MG TAB PEG SCH ×2 (05:50→18:11)
[2017-03-24 08:00] VITALS: BP 112/87; PULSE 104; RESP 20; TEMP 99; O2SAT 97
[2017-03-24] MEDS: FLUoxetine HCL LIQUID 20 MG/5 ML CUP PEG SCH (09:27)
[2017-03-24] MEDS: ENOXAPARIN SODIUM 40 MG/0.4 ML SYRINGE SQ SCH (09:27)
[2017-03-24] MEDS: LANSOPRAZOLE SOLUTAB 30 MG TAB PEG SCH ×2 (09:27→22:05)
[2017-03-24] MEDS: LACTOBACILLUS ACIDOPHILUS TAB PEG SCH ×2 (09:27→22:05)
[2017-03-24] MEDS: LACTIC ACID (AMMONIUM LACTATE) 12% LOTION 225 GM BTL TOPICAL SCH ×2 (09:28→22:06)
[2017-03-24] MEDS: predniSONE 20 MG TAB PEG SCH (09:28)
[2017-03-24] MEDS: SENNOSIDES SYRUP 8.8 MG/5 ML CUP PEG SCH (09:30)
[2017-03-24] MEDS: JUVEN POWDER 1 PACK G-TUBE SCH ×2 (09:31→22:07)
--- NOTE | 2017-03-24 11:11 | HHI.PR ---
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 Patient denies any new complaints. No change in clinical status. Awaiting case management for discharge planning. Objective Vitals Vital Signs Date Time Temp Pulse Resp B/P (MAP) Pulse Ox O2 Delivery O2 Flow Rate FiO2 03/24/17 08:00 99.0 104 20 112/87 (95) 97 03/23/17 20:00 97.6 88 18 100/68 (79) 98 03/23/17 15:30 94 21 I/O 03/23/17 03/23/17 03/23/17 03/24/17 03/24/17 03/24/17 07:00 15:00 23:00 07:00 15:00 23:00 Intake Total 1750 ml 0 ml 0 ml Output Total 525 ml 600 ml Balance 1750 ml -525 ml -600 ml Intake Oral 0 ml 0 ml Tube Feeding 1200 ml Other 550 ml Output Urine Total 525 ml 600 ml # Bowel Movements 1 1 Objective Remarks GENERAL: Well-developed, cachectic and contracted. HEENT: Head is normocephalic without any lesions or masses noted. Facial features are symmetric. Eyes: Extraocular muscles are intact. Conjunctivae were clear. NECK: Trachea midline no deviation. CARDIAC: Regular rhythm, tachycardia noted. S1/S2 are heard. No murmurs gallops or rubs. LUNGS: Clear to auscultation bilaterally. No wheeze, rhonchi or rales. No use of accessory muscles on inspiration or expiration. ABDOMEN: Soft, nontender. Nondistended. Bowel sounds heard in all 4 quadrants. No organomegaly or masses. Negative rebound, negative guarding. PEG tube noted without any excoriation. EXTREMITIES: No edema, pulses are equal bilaterally. No cyanosis or clubbing. Ulceration noted over his left lower extremity lateral malleolus Procedures 07/19/16 EGD with PEG tube placement 09/27/16 colonoscopy Urinary Catheter: Yes Assessment to: Continue Kowalski insert reason: Obstruction/Retention Date of Insertion: Mar 01, 2017 Vascular Central Line Catheter: No A/P Assessment and Plan Neuro-Behcet, history of frontal lobe CVA, encephalopathy, history of meningitis , Blurred vision/double vision, urinary retention, chronic No new changes on imaging. Patient was followed by neurology. Aphasic at baseline. 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 S/P barium swallow. Patient with severe dysphagia. GI was consulted and PEG tube was placed. Nursing staff indicates patient was having bolus feeding intolerance Dietary reconsulted and made recommendations Coccyx decubitus. Ankle ulceration Wound care nurse is following the patient for management Patient with specialty bed Mood disorder, depression Patient was evaluated by psychiatrist. Prozac 40 mg daily Seroquel 25 mg at bedtime Diabetes Glucose continues to be well controlled, DVT Prophylaxis: Lovenox, TEDs/SCDs. Records reviewed, no change in present treatment plan. Discharge Planning Case management for discharge planning, recent records indicate that planning on transferring back to [place], Ede Richardson Mar 24, 2017 11:11
[2017-03-24 20:00] VITALS: BP 109/85; PULSE 84; RESP 18; TEMP 97.9; O2SAT 93
[2017-03-24] MEDS: QUEtiapine FUMARATE 25 MG TAB PO SCH (22:05)
[2017-03-25] MEDS: azaTHIOprine 50 MG TAB PEG SCH ×2 (06:11→17:20)
[2017-03-25 08:00] VITALS: BP 122/76; PULSE 77; RESP 18; TEMP 97.6; O2SAT 94
--- NOTE | 2017-03-25 08:12 | HHI.PR ---
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 Patient denies any new complaints. No change in clinical status. Awaiting case management discharge planning. Objective Vitals Vital Signs Date Time Temp Pulse Resp B/P (MAP) Pulse Ox O2 Delivery O2 Flow Rate FiO2 03/24/17 20:00 97.9 84 18 109/85 (93) 93 I/O 03/24/17 03/24/17 03/24/17 03/25/17 03/25/17 03/25/17 07:00 15:00 23:00 07:00 15:00 23:00 Intake Total 0 ml 1150 ml Output Total 600 ml 950.0 ml 600 ml 700 ml Balance -600 ml -950.0 ml -600 ml 450 ml Intake Oral 0 ml Tube Feeding 400 ml Other 750 ml Output Urine Total 600 ml 350 ml 700 ml Gastric Drainage Total 300 ml 600 ml Tube Feeding Residual Discard 300.0 ml # Bowel Movements 1 Objective Remarks GENERAL: Well-developed, cachectic and contracted. HEENT: Head is normocephalic without any lesions or masses noted. Facial features are symmetric. Eyes: Extraocular muscles are intact. Conjunctivae were clear. NECK: Trachea midline no deviation. CARDIAC: Regular rhythm, tachycardia noted. S1/S2 are heard. No murmurs gallops or rubs. LUNGS: Clear to auscultation bilaterally. No wheeze, rhonchi or rales. No use of accessory muscles on inspiration or expiration. ABDOMEN: Soft, nontender. Nondistended. Bowel sounds heard in all 4 quadrants. No organomegaly or masses. Negative rebound, negative guarding. PEG tube noted without any excoriation. EXTREMITIES: No edema, pulses are equal bilaterally. No cyanosis or clubbing. Ulceration noted over his left lower extremity lateral malleolus Procedures 07/19/16 EGD with PEG tube placement 09/27/16 colonoscopy Urinary Catheter: Yes Assessment to: Continue Kowalski insert reason: Obstruction/Retention Date of Insertion: Mar 01, 2017 Vascular Central Line Catheter: No A/P Assessment and Plan Neuro-Behcet, history of frontal lobe CVA, encephalopathy, history of meningitis , Blurred vision/double vision, urinary retention, chronic No new changes on imaging. Patient was followed by neurology. Aphasic at baseline. 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 S/P barium swallow. Patient with severe dysphagia. GI was consulted and PEG tube was placed. Patient was intolerant to bolus feeding Dietary reconsulted and made recommendations Coccyx decubitus. Ankle ulceration Wound care nurse is following the patient for management Patient with specialty bed Mood disorder, depression Psychiatry evaluated patient and made recommendations Prozac 40 mg daily Seroquel 25 mg at bedtime Diabetes Glucose continues to be well controlled, DVT Prophylaxis: Lovenox, TEDs/SCDs. Case management discharge planning, Records reviewed, no change in present treatment plan. Discharge Planning Case management for discharge planning, recent records indicate that planning on transferring back to [place], Ede Richardson Mar 25, 2017 08:12
[2017-03-25] MEDS: predniSONE 20 MG TAB PEG SCH (08:21)
[2017-03-25] MEDS: SENNOSIDES SYRUP 8.8 MG/5 ML CUP PEG SCH (08:21)
[2017-03-25] MEDS: ENOXAPARIN SODIUM 40 MG/0.4 ML SYRINGE SQ SCH (08:21)
[2017-03-25] MEDS: LACTOBACILLUS ACIDOPHILUS TAB PEG SCH ×2 (08:21→21:27)
[2017-03-25] MEDS: FLUoxetine HCL LIQUID 20 MG/5 ML CUP PEG SCH (08:21)
[2017-03-25] MEDS: LANSOPRAZOLE SOLUTAB 30 MG TAB PEG SCH ×2 (08:21→21:28)
[2017-03-25] MEDS: LACTIC ACID (AMMONIUM LACTATE) 12% LOTION 225 GM BTL TOPICAL SCH ×2 (08:22→21:29)
[2017-03-25] MEDS: JUVEN POWDER 1 PACK G-TUBE SCH ×2 (08:22→21:29)
[2017-03-25] MEDS: QUEtiapine FUMARATE 25 MG TAB PO SCH (21:28)
[2017-03-25 21:32] VITALS: BP 114/68; PULSE 60; RESP 22; TEMP 98.9; O2SAT 92
[2017-03-26] MEDS: azaTHIOprine 50 MG TAB PEG SCH ×2 (05:03→17:01)
[2017-03-26 08:00] VITALS: BP 108/77; PULSE 102; RESP 16; TEMP 97.6; O2SAT 95
--- NOTE | 2017-03-26 08:05 | HHI.PR ---
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 Patient states that his vision is more blurry today. Discussed with him ophthalmology evaluation with progression of his condition. He does understand. Objective Vitals Vital Signs Date Time Temp Pulse Resp B/P (MAP) Pulse Ox O2 Delivery O2 Flow Rate FiO2 03/26/17 04:32 03/25/17 21:32 98.9 60 22 114/68 (83) 92 I/O 03/25/17 03/25/17 03/25/17 03/26/17 03/26/17 03/26/17 07:00 15:00 23:00 07:00 15:00 23:00 Intake Total 1150 ml 250 ml 1698 ml Output Total 700 ml 350 ml 950 ml Balance 450 ml -100 ml 748 ml Tube Feeding 400 ml 1198 ml Other 750 ml 250 ml 500 ml Output Urine Total 700 ml 350 ml 950 ml # Bowel Movements 1 1 Objective Remarks GENERAL: Well-developed, cachectic and contracted. HEENT: Head is normocephalic without any lesions or masses noted. Facial features are symmetric. Eyes: Extraocular muscles are intact. Conjunctivae were clear. NECK: Trachea midline no deviation. CARDIAC: Regular rhythm, tachycardia noted. S1/S2 are heard. No murmurs gallops or rubs. LUNGS: Clear to auscultation bilaterally. No wheeze, rhonchi or rales. No use of accessory muscles on inspiration or expiration. ABDOMEN: Soft, nontender. Nondistended. Bowel sounds heard in all 4 quadrants. No organomegaly or masses. Negative rebound, negative guarding. PEG tube noted without any excoriation. EXTREMITIES: No edema, pulses are equal bilaterally. No cyanosis or clubbing. Ulceration noted over his left lower extremity lateral malleolus Procedures 07/19/16 EGD with PEG tube placement 09/27/16 colonoscopy Urinary Catheter: Yes Assessment to: Continue Kowalski insert reason: Obstruction/Retention Date of Insertion: Mar 01, 2017 Vascular Central Line Catheter: No A/P Assessment and Plan Neuro-Behcet, history of frontal lobe CVA, encephalopathy, history of meningitis , Blurred vision/double vision, urinary retention, chronic No new changes on imaging. Patient was followed by neurology. Aphasic at baseline. 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 S/P barium swallow. Patient with severe dysphagia. GI was consulted and PEG tube was placed. Patient was intolerant to bolus feeding Dietary reconsulted and made recommendations Coccyx decubitus. Ankle ulceration Wound care nurse is following the patient for management Patient with specialty bed Mood disorder, depression Psychiatry evaluated patient and made recommendations Prozac 40 mg daily Seroquel 25 mg at bedtime Diabetes Glucose continues to be well controlled, DVT Prophylaxis: Lovenox, TEDs/SCDs. Records reviewed, no change in present treatment plan. Case management discharge planning, Discharge Planning Case management for discharge planning, recent records indicate that planning on transferring back to [place], Ede Richardson Mar 26, 2017 08:05
[2017-03-26] MEDS: ENOXAPARIN SODIUM 40 MG/0.4 ML SYRINGE SQ SCH (08:27)
[2017-03-26] MEDS: LANSOPRAZOLE SOLUTAB 30 MG TAB PEG SCH ×2 (08:27→19:51)
[2017-03-26] MEDS: predniSONE 20 MG TAB PEG SCH (08:27)
[2017-03-26] MEDS: FLUoxetine HCL LIQUID 20 MG/5 ML CUP PEG SCH (08:27)
[2017-03-26] MEDS: LACTOBACILLUS ACIDOPHILUS TAB PEG SCH ×2 (08:27→19:51)
[2017-03-26] MEDS: SENNOSIDES SYRUP 8.8 MG/5 ML CUP PEG SCH (08:27)
[2017-03-26] MEDS: JUVEN POWDER 1 PACK G-TUBE SCH ×2 (08:28→19:51)
[2017-03-26] MEDS: LACTIC ACID (AMMONIUM LACTATE) 12% LOTION 225 GM BTL TOPICAL SCH ×2 (08:28→19:52)
[2017-03-26 08:45] VITALS: O2SAT 93
[2017-03-26 19:00] VITALS: BP 112/90; PULSE 87; RESP 22; TEMP 95.8; O2SAT 96
[2017-03-26] MEDS: QUEtiapine FUMARATE 25 MG TAB PO SCH (19:52)
[2017-03-26 20:31] VITALS: O2SAT 93
[2017-03-27] MEDS: azaTHIOprine 50 MG TAB PEG SCH ×2 (05:54→17:55)
--- NOTE | 2017-03-27 07:46 | HHI.PR ---
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 Patient denies any new problems today. No change in clinical status. Awaiting complex case manager discharge planning. Objective Vitals Vital Signs Date Time Temp Pulse Resp B/P (MAP) Pulse Ox O2 Delivery O2 Flow Rate FiO2 03/26/17 20:31 93 21 03/26/17 19:00 95.8 87 22 112/90 (97) 96 03/26/17 08:45 93 21 03/26/17 08:00 97.6 102 16 108/77 (87) 95 I/O 03/26/17 03/26/17 03/26/17 03/27/17 03/27/17 03/27/17 07:00 15:00 23:00 07:00 15:00 23:00 Intake Total 1698 ml 1206 ml 942 ml Output Total 950 ml 350 ml 650 ml Balance 748 ml -350 ml 1206 ml 292 ml Tube Feeding 1198 ml 966 ml 462 ml Tube Irrigant 240 ml 480 ml Other 500 ml Output Urine Total 950 ml 350 ml 650 ml # Bowel Movements 1 1 Objective Remarks GENERAL: Well-developed, cachectic and contracted. HEENT: Head is normocephalic without any lesions or masses noted. Facial features are symmetric. Eyes: Extraocular muscles are intact. Conjunctivae were clear. NECK: Trachea midline no deviation. CARDIAC: Regular rhythm, tachycardia noted. S1/S2 are heard. No murmurs gallops or rubs. LUNGS: Clear to auscultation bilaterally. No wheeze, rhonchi or rales. No use of accessory muscles on inspiration or expiration. ABDOMEN: Soft, nontender. Nondistended. Bowel sounds heard in all 4 quadrants. No organomegaly or masses. Negative rebound, negative guarding. PEG tube noted without any excoriation. EXTREMITIES: No edema, pulses are equal bilaterally. No cyanosis or clubbing. Ulceration noted over his left lower extremity lateral malleolus Procedures 07/19/16 EGD with PEG tube placement 09/27/16 colonoscopy Urinary Catheter: Yes Assessment to: Continue Kowalski insert reason: Obstruction/Retention Date of Insertion: Mar 01, 2017 Vascular Central Line Catheter: No A/P Assessment and Plan Neuro-Behcet, history of frontal lobe CVA, encephalopathy, history of meningitis , Blurred vision/double vision, urinary retention, chronic No new changes on imaging. Patient was followed by neurology. Aphasic at baseline. 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 S/P barium swallow. Patient with severe dysphagia. GI was consulted and PEG tube was placed. Patient was intolerant to bolus feeding Dietary reconsulted and made recommendations Coccyx decubitus. Ankle ulceration Wound care nurse is following the patient for management Patient with specialty bed Mood disorder, depression Psychiatry evaluated patient and made recommendations Prozac 40 mg daily Seroquel 25 mg at bedtime Diabetes Glucose continues to be well controlled, DVT Prophylaxis: Lovenox, TEDs/SCDs. Records reviewed, no change in present treatment plan. Case management discharge planning, Discharge Planning Case management for discharge planning, recent records indicate that planning on transferring back to [place], Ede Richardson Mar 27, 2017 07:46
[2017-03-27 07:47] VITALS: BP 89/79; PULSE 91; RESP 20; TEMP 95.6; O2SAT 100
[2017-03-27] MEDS: LACTOBACILLUS ACIDOPHILUS TAB PEG SCH ×2 (08:24→21:24)
[2017-03-27] MEDS: SENNOSIDES SYRUP 8.8 MG/5 ML CUP PEG SCH (08:24)
[2017-03-27] MEDS: ENOXAPARIN SODIUM 40 MG/0.4 ML SYRINGE SQ SCH (08:24)
[2017-03-27] MEDS: predniSONE 20 MG TAB PEG SCH (08:24)
[2017-03-27] MEDS: LANSOPRAZOLE SOLUTAB 30 MG TAB PEG SCH ×2 (08:24→21:24)
[2017-03-27] MEDS: FLUoxetine HCL LIQUID 20 MG/5 ML CUP PEG SCH (08:24)
[2017-03-27] MEDS: LACTIC ACID (AMMONIUM LACTATE) 12% LOTION 225 GM BTL TOPICAL SCH ×2 (08:25→21:00)
[2017-03-27] MEDS: JUVEN POWDER 1 PACK G-TUBE SCH ×2 (08:25→21:25)
[2017-03-27 20:00] VITALS: BP 112/85; PULSE 80; RESP 20; TEMP 96.7; O2SAT 96
[2017-03-27] MEDS: QUEtiapine FUMARATE 25 MG TAB PO SCH (21:24)
[2017-03-28] MEDS: azaTHIOprine 50 MG TAB PEG SCH ×2 (05:42→17:35)
[2017-03-28 08:01] VITALS: BP 109/72; PULSE 86; RESP 20; TEMP 97.2; O2SAT 100
[2017-03-28] MEDS: FLUoxetine HCL LIQUID 20 MG/5 ML CUP PEG SCH (08:52)
[2017-03-28] MEDS: SENNOSIDES SYRUP 8.8 MG/5 ML CUP PEG SCH (08:53)
[2017-03-28] MEDS: LACTOBACILLUS ACIDOPHILUS TAB PEG SCH ×2 (08:54→20:40)
[2017-03-28] MEDS: predniSONE 20 MG TAB PEG SCH (08:54)
[2017-03-28] MEDS: LANSOPRAZOLE SOLUTAB 30 MG TAB PEG SCH ×2 (08:54→20:40)
[2017-03-28] MEDS: JUVEN POWDER 1 PACK G-TUBE SCH ×2 (08:57→20:41)
[2017-03-28] MEDS: ENOXAPARIN SODIUM 40 MG/0.4 ML SYRINGE SQ SCH (08:57)
[2017-03-28] MEDS: LACTIC ACID (AMMONIUM LACTATE) 12% LOTION 225 GM BTL TOPICAL SCH ×2 (08:58→20:43)
--- NOTE | 2017-03-28 09:10 | HHI.PR ---
Subjective Remarks Follow-up for neuro-Behcet's syndrome. Patient denies any pain. Denies any shortness of breath. Objective Vitals Vital Signs Date Time Temp Pulse Resp B/P (MAP) Pulse Ox O2 Delivery O2 Flow Rate FiO2 03/28/17 08:01 97.2 86 20 109/72 (84) 100 03/27/17 20:00 96.7 80 20 112/85 (94) 96 I/O 03/27/17 03/27/17 03/27/17 03/28/17 03/28/17 03/28/17 07:00 15:00 23:00 07:00 15:00 23:00 Intake Total 942 ml 0 ml Output Total 650 ml 250 ml 300 ml Balance 292 ml -250 ml -300 ml Intake Oral 0 ml Tube Feeding 462 ml Tube Irrigant 480 ml Output Urine Total 650 ml 250 ml 300 ml # Bowel Movements 1 0 Objective Remarks GENERAL: Thin patient in no apparent distress. CARDIOVASCULAR: Tachycardic rate and regular rhythm. RESPIRATORY: Transmitted snorting upper respiratory sounds but otherwise clear. GASTROINTESTINAL: Abdomen soft, non-tender, nondistended. PEG tube present. NEUROLOGICAL: Awake and alert. Nods head to answer questions. PSYCHIATRIC: Stable mood and affect. 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's disease Status: Chronic (3) Sepsis ICD Code: A41.9 - Sepsis, unspecified organism Status: Resolved (4) Encephalopathy ICD Code: G93.40 - Encephalopathy, unspecified Status: Resolved (5) GI bleed ICD Code: K92.2 - Gastrointestinal hemorrhage, unspecified Status: Resolved (6) HCAP (healthcare-associated pneumonia) ICD Code: J18.9 - Pneumonia, unspecified organism Status: Resolved (7) UTI (urinary tract infection) ICD Code: N39.0 - Urinary tract infection, site not specified Status: Resolved (8) Leucocytosis ICD Code: D72.829 - Elevated white blood cell count, unspecified Status: Resolved (9) Fever ICD Code: R50.9 - Fever, unspecified Status: Resolved (10) Effusion of hip joint ICD Code: M25.459 - Effusion, unspecified hip Status: Acute (11) 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 May be related to prednisone use although no recent change in dose. May be more likely related to Behcet's syndrome as patient has had leukocytosis without infection in the past. -03/18: WBC 13.3-->12.7. Remains afebrile. Good oxygen saturation. No further workup necessary at this time. -Monitor CBC periodically Prerenal azotemia: Improved. S/p IVF BUN 34 on 03/13 03/17: BUN 20. Monitor periodically. Hypotension: Improved Neuro Behet's, history of frontal lobe CVA, encephalopathy, history of meningitis, chronic No new changes on imaging. Patient followed by neurology. Aphasic at baseline. Neurology following the patient Continue Imuran, prednisone EEG shows mild to moderate slowing at times of various depending on the epoch, there was no epileptic activity seen Continue PT/OT Palliative care following the patient and is still indicating the patient is making his own decisions, full code and full aggressive measures Allen discontinued on 03/17 Blurred vision/Diplopia: Related to his neuro Behet's syndrome. -Ophthalmology evaluated patient on 01/11/17. 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 Recommends immunosuppressants and steroids which patient is currently on. Hospital acquired pneumonia: Stable -S/p Levaquin 750 mg x 7 days -Continue suctioning q6h/ prn. -Continue Levsin. -Continue Duonebs as needed Urinary retention: Stable. 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 -Monitor intake and output. -Patient will need to keep Kowalski in place as he is non-ambulatory. Change monthly. Diabetes: Stable HbA1c 6.6 on 09/25/16. Accu-checks and SSI were discontinued. SIRS/Sepsis, multiple episodes: Resolved. Coccyx decubitus wound: Wound culture with pseudo fluorescens/putida, group D enterococcus VRE which is sensitive to Zosyn. Patient did have one urine culture of Daphney parapsilosis, was treated with fluconazole for 10 days. Patient had episode of diarrhea, C. difficile cultures performed which was negative. Infectious disease consulted and last seen the patient on 10/18/16, at that time it was indicated to observe off antibiotics. 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 Would benefit from long-term steroids. Most recently treated for possible HAP on 02/05. Sinus tachycardia: Stable. S/p Lopressor TSH, free T3, free T4 were normal Melena, bright red blood in stool: Resolved Status post transfusion, emergently transferred to [facility], emergent endoscopy GI evaluated and managed patient with emergent colonoscopy showing small ulcer in the colon Continue Prevacid Hemoglobin stable Hypernatremia and hyperchloremia: Resolved. Continue free water flushes 200 cc every 4 hours Hypokalemia with mild hypomagnesemia: Improved s/p repletion. Decreased oral intake and dysphagia on initial presentation Speech therapy following intermittently. S/P barium swallow. Patient with severe dysphagia. GI consulted and PEG tube was placed. [employer] Application Developer following. Due to vomiting tube feeding changed to low volume TwoCal HN, goal rate 50ml/hr. Free Water Flushes and additional free water flush with Maury bid. Coccyx decubitus: Wound care nurse is following. Follow recommendations. Specialty bed Ankle ulcer: R lateral malleolus. -Foam boots. -Wound care nurse following. Follow recommendations. Depression: Patient was evaluated by psychiatrist. Continue Prozac 40 mg daily and Seroquel 25 mg HS. Constipation: Improved. Continue scheduled Senna and Miralax prn. DVT Prophylaxis: Lovenox, TEDs/SCDs. Discharge Planning 01/27: systems analysis [facility] to [facility], awaiting return call. 02/10: CM still awaiting call back. Problem Qualifiers (1) GI bleed: (2) UTI (urinary tract infection): (3) Effusion of hip joint: Mari Talamantes Mar 28, 2017 09:10
[2017-03-28 20:00] VITALS: BP 103/82; PULSE 75; RESP 20; TEMP 96.6; O2SAT 100
[2017-03-28] MEDS: QUEtiapine FUMARATE 25 MG TAB PO SCH (20:40)
[2017-03-29] MEDS: azaTHIOprine 50 MG TAB PEG SCH ×2 (05:50→16:36)
[2017-03-29] MEDS: predniSONE 20 MG TAB PEG SCH (07:26)
[2017-03-29] MEDS: SENNOSIDES SYRUP 8.8 MG/5 ML CUP PEG SCH (07:27)
[2017-03-29] MEDS: FLUoxetine HCL LIQUID 20 MG/5 ML CUP PEG SCH (07:27)
[2017-03-29] MEDS: LANSOPRAZOLE SOLUTAB 30 MG TAB PEG SCH ×2 (07:27→21:09)
[2017-03-29] MEDS: ENOXAPARIN SODIUM 40 MG/0.4 ML SYRINGE SQ SCH (07:28)
[2017-03-29] MEDS: LACTOBACILLUS ACIDOPHILUS TAB PEG SCH ×2 (07:28→21:09)
[2017-03-29] MEDS: LACTIC ACID (AMMONIUM LACTATE) 12% LOTION 225 GM BTL TOPICAL SCH ×2 (07:28→21:00)
[2017-03-29 08:00] VITALS: BP 113/82; PULSE 88; RESP 20; TEMP 97.4; O2SAT 98
--- NOTE | 2017-03-29 08:59 | HHI.PR ---
Subjective Remarks Follow-up for neuro-Behcet's syndrome. Denies SOB. Objective Vitals Vital Signs Date Time Temp Pulse Resp B/P (MAP) Pulse Ox O2 Delivery O2 Flow Rate FiO2 03/29/17 08:00 97.4 88 20 113/82 (92) 98 03/28/17 20:00 96.6 75 20 103/82 (89) 100 I/O 03/28/17 03/28/17 03/28/17 03/29/17 03/29/17 03/29/17 07:00 15:00 23:00 07:00 15:00 23:00 Intake Total 0 ml 0 ml Output Total 300 ml 300 ml 525 ml Balance -300 ml -300 ml -525 ml Intake Oral 0 ml 0 ml Output Urine Total 300 ml 300 ml 525 ml # Bowel Movements 0 1 Objective Remarks GENERAL: Thin patient in no apparent distress. CARDIOVASCULAR: Regular rate and rhythm. RESPIRATORY: Transmitted snorting upper respiratory sounds. GASTROINTESTINAL: Abdomen soft, non-tender, nondistended. NEUROLOGICAL: Awake and alert. Nods head to answer questions. PSYCHIATRIC: Stable mood and affect. 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 (3) Sepsis ICD Code: A41.9 - Sepsis, unspecified organism Status: Resolved (4) Encephalopathy ICD Code: G93.40 - Encephalopathy, unspecified Status: Resolved (5) GI bleed ICD Code: K92.2 - Gastrointestinal hemorrhage, unspecified Status: Resolved (6) HCAP (healthcare-associated pneumonia) ICD Code: J18.9 - Pneumonia, unspecified organism Status: Resolved (7) UTI (urinary tract infection) ICD Code: N39.0 - Urinary tract infection, site not specified Status: Resolved (8) Leucocytosis ICD Code: D72.829 - Elevated white blood cell count, unspecified Status: Resolved (9) Fever ICD Code: R50.9 - Fever, unspecified Status: Resolved (10) Effusion of hip joint ICD Code: M25.459 - Effusion, unspecified hip Status: Acute (11) 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 May be related to prednisone use although no recent change in dose. May be more likely related to Behcet's syndrome as patient has had leukocytosis without infection in the past. -03/18: WBC 13.3-->12.7. Remains afebrile. Good oxygen saturation. No further workup necessary at this time. -Monitor CBC periodically Prerenal azotemia: Improved. S/p IVF BUN 34 on 03/13 03/17: BUN 20. Monitor periodically. Hypotension: Improved Neuro Behet's, history of frontal lobe CVA, encephalopathy, history of meningitis, chronic No new changes on imaging. Patient followed by neurology. Aphasic at baseline. Neurology following the patient Continue Imuran, prednisone EEG shows mild to moderate slowing at times of various depending on the epoch, there was no epileptic activity seen Continue PT/OT Palliative care following the patient and is still indicating the patient is making his own decisions, full code and full aggressive measures [place] discontinued on 03/17 Blurred vision/Diplopia: Related to his neuro Behet's syndrome. -Ophthalmology evaluated patient on 01/11/17. 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 Recommends immunosuppressants and steroids which patient is currently on. Hospital acquired pneumonia: Stable -S/p Levaquin 750 mg x 7 days -Continue suctioning q6h/ prn. -Continue Levsin. -Continue Duonebs as needed Urinary retention: Stable. 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 -Monitor intake and output. -Patient will need to keep Kowalski in place as he is non-ambulatory. Change monthly. Diabetes: Stable HbA1c 6.6 on 09/25/16. Accu-checks and SSI were discontinued. SIRS/Sepsis, multiple episodes: Resolved. Coccyx decubitus wound: Wound culture with pseudo fluorescens/putida, group D enterococcus VRE which is sensitive to Zosyn. Patient did have one urine culture of Daphney parapsilosis, was treated with fluconazole for 10 days. Patient had episode of diarrhea, C. difficile cultures performed which was negative. Infectious disease consulted and last seen the patient on 10/18/16, at that time it was indicated to observe off antibiotics. 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 Would benefit from long-term steroids. Most recently treated for possible HAP on 02/05. Sinus tachycardia: Stable. S/p Lopressor TSH, free T3, free T4 were normal Melena, bright red blood in stool: Resolved Status post transfusion, emergently transferred to main hospital, emergent endoscopy GI evaluated and managed patient with emergent colonoscopy showing small ulcer in the colon Continue Prevacid Hemoglobin stable Hypernatremia and hyperchloremia: Resolved. Continue free water flushes 200 cc every 4 hours Hypokalemia with mild hypomagnesemia: Improved s/p repletion. Decreased oral intake and dysphagia on initial presentation Speech therapy following intermittently. S/P barium swallow. Patient with severe dysphagia. GI consulted and PEG tube was placed. [employer] following. Due to vomiting tube feeding changed to low volume TwoCal HN, goal rate 50ml/hr. Free Water Flushes and additional free water flush with Maury bid. Coccyx decubitus: Wound care nurse is following. Follow recommendations. Specialty bed Ankle ulcer: R lateral malleolus. -Foam boots. -Wound care nurse following. Follow recommendations. Depression: Patient was evaluated by psychiatrist. Continue Prozac 40 mg daily and Seroquel 25 mg HS. Constipation: Improved. Continue scheduled Senna and Miralax prn. DVT Prophylaxis: Lovenox, TEDs/SCDs. Discharge Planning 01/27: critical [facility] following up on assistance plan to transfer patient there, awaiting return call. 02/10: CM still awaiting call back. Problem Qualifiers (1) GI bleed: (2) UTI (urinary tract infection): (3) Effusion of hip joint: Mari Talamantes Mar 29, 2017 08:59
[2017-03-29] MEDS: JUVEN POWDER 1 PACK G-TUBE SCH ×2 (09:00→21:15)
[2017-03-29 20:00] VITALS: BP 107/82; PULSE 73; RESP 24; TEMP 96.8; O2SAT 95
[2017-03-29] MEDS: QUEtiapine FUMARATE 25 MG TAB PO SCH (21:10)
[2017-03-30] MEDS: azaTHIOprine 50 MG TAB PEG SCH ×2 (05:09→18:05)
[2017-03-30 08:00] VITALS: BP 108/83; PULSE 84; RESP 21; TEMP 96.6; O2SAT 99
[2017-03-30] MEDS: JUVEN POWDER 1 PACK G-TUBE SCH ×2 (09:00→22:48)
--- NOTE | 2017-03-30 09:00 | HHI.PR ---
Subjective Remarks Follow up for Neuro-Behcet's syndrome. No acute changes. Denies shortness of breath. Objective Vitals Vital Signs Date Time Temp Pulse Resp B/P (MAP) Pulse Ox O2 Delivery O2 Flow Rate FiO2 03/30/17 08:00 96.6 84 21 108/83 (91) 99 03/29/17 20:00 96.8 73 24 107/82 (90) 95 I/O 03/29/17 03/29/17 03/29/17 03/30/17 03/30/17 03/30/17 07:00 15:00 23:00 07:00 15:00 23:00 Intake Total 0 ml Output Total 525 ml Balance -525 ml Intake Oral 0 ml Output Urine Total 525 ml # Bowel Movements 1 Objective Remarks GENERAL: Thin patient in no apparent distress. CARDIOVASCULAR: Regular rate and rhythm. RESPIRATORY: Transmitted snorting upper respiratory sounds. GASTROINTESTINAL: Abdomen soft, non-tender, nondistended. PEG tube present. NEUROLOGICAL: Awake and alert. Nods head to answer questions. PSYCHIATRIC: Stable mood and affect. 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's disease Status: Chronic (3) Sepsis ICD Code: A41.9 - Sepsis, unspecified organism Status: Resolved (4) Encephalopathy ICD Code: G93.40 - Encephalopathy, unspecified Status: Resolved (5) GI bleed ICD Code: K92.2 - Gastrointestinal hemorrhage, unspecified Status: Resolved (6) HCAP (healthcare-associated pneumonia) ICD Code: J18.9 - Pneumonia, unspecified organism Status: Resolved (7) UTI (urinary tract infection) ICD Code: N39.0 - Urinary tract infection, site not specified Status: Resolved (8) Leucocytosis ICD Code: D72.829 - Elevated white blood cell count, unspecified Status: Resolved (9) Fever ICD Code: R50.9 - Fever, unspecified Status: Resolved (10) Effusion of hip joint ICD Code: M25.459 - Effusion, unspecified hip Status: Acute (11) 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 May be related to prednisone use although no recent change in dose. May be more likely related to Behcet's syndrome as patient has had leukocytosis without infection in the past. -03/18: WBC 13.3-->12.7. Remains afebrile. Good oxygen saturation. No further workup necessary at this time. -Monitor CBC periodically Prerenal azotemia: Improved. S/p IVF BUN 34 on 03/13 03/17: BUN 20. Monitor periodically. Hypotension: Improved Neuro Behet's, history of frontal lobe CVA, encephalopathy, history of meningitis, chronic No new changes on imaging. Patient followed by neurology. Aphasic at baseline. Neurology following the patient Continue Imuran, prednisone EEG shows mild to moderate slowing at times of various depending on the epoch, there was no epileptic activity seen Continue PT/OT Palliative care following the patient and is still indicating the patient is making his own decisions, full code and full aggressive measures [place] discontinued on 03/17 Blurred vision/Diplopia: Related to his neuro Behet's syndrome. -Ophthalmology evaluated patient on 01/11/17. 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 Recommends immunosuppressants and steroids which patient is currently on. Hospital acquired pneumonia: Stable -S/p Levaquin 750 mg x 7 days -Continue suctioning q6h/ prn. -Continue Levsin. -Continue Duonebs as needed Urinary retention: Stable. 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 -Monitor intake and output. -Patient will need to keep Kowalski in place as he is non-ambulatory. Change monthly. -03/30: Order to replace Kowalski today. Diabetes: Stable HbA1c 6.6 on 09/25/16. Accu-checks and SSI were discontinued. SIRS/Sepsis, multiple episodes: Resolved. Coccyx decubitus wound: Wound culture with pseudo fluorescens/putida, group D enterococcus VRE which is sensitive to Zosyn. Patient did have one urine culture of Daphney parapsilosis, was treated with fluconazole for 10 days. Patient had episode of diarrhea, C. difficile cultures performed which was negative. Infectious disease consulted and last seen the patient on 10/18/16, at that time it was indicated to observe off antibiotics. 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 Would benefit from long-term steroids. Most recently treated for possible HAP on 02/05. Sinus tachycardia: Stable. S/p Lopressor TSH, free T3, free T4 were normal Melena, bright red blood in stool: Resolved Status post transfusion, emergently transferred to [facility], emergent endoscopy GI evaluated and managed patient with emergent colonoscopy showing small ulcer in the colon Continue Prevacid Hemoglobin stable Hypernatremia and hyperchloremia: Resolved. Continue free water flushes 200 cc every 4 hours Hypokalemia with mild hypomagnesemia: Improved s/p repletion. Decreased oral intake and dysphagia on initial presentation Speech therapy following intermittently. S/P barium swallow. Patient with severe dysphagia. GI consulted and PEG tube was placed. Customer Account [employer] following. Due to vomiting tube feeding changed to low volume TwoCal HN, goal rate 50ml/hr. Free Water Flushes and additional free water flush with Maury bid. Coccyx decubitus: Wound care nurse is following. Follow recommendations. Specialty bed Ankle ulcer: R lateral malleolus. -Foam boots. -Wound care nurse following. Follow recommendations. Depression: Patient was evaluated by psychiatrist. Continue Prozac 40 mg daily and Seroquel 25 mg HS. Constipation: Improved. Continue scheduled Senna and Miralax prn. DVT Prophylaxis: Lovenox, TEDs/SCDs. Discharge Planning 01/27: unix manager called [facility] following up on assistance plan to transfer patient there, awaiting return call. 02/10: CM still awaiting call back. Problem Qualifiers (1) GI bleed: (2) UTI (urinary tract infection): (3) Effusion of hip joint: Mari Talamantes Mar 30, 2017 09:00
[2017-03-30] MEDS: LACTOBACILLUS ACIDOPHILUS TAB PEG SCH ×2 (10:08→22:48)
[2017-03-30] MEDS: LANSOPRAZOLE SOLUTAB 30 MG TAB PEG SCH ×2 (10:08→22:48)
[2017-03-30] MEDS: SENNOSIDES SYRUP 8.8 MG/5 ML CUP PEG SCH (10:08)
[2017-03-30] MEDS: predniSONE 20 MG TAB PEG SCH (10:08)
[2017-03-30] MEDS: FLUoxetine HCL LIQUID 20 MG/5 ML CUP PEG SCH (10:08)
[2017-03-30] MEDS: ENOXAPARIN SODIUM 40 MG/0.4 ML SYRINGE SQ SCH (10:09)
[2017-03-30] MEDS: LACTIC ACID (AMMONIUM LACTATE) 12% LOTION 225 GM BTL TOPICAL SCH ×2 (10:11→22:49)
--- NOTE | 2017-03-30 10:16 | PD.WCN.NOT ---
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 Please leave sacral scar tissue open to air and apply skin prep BID to protect Additional Information: Late entry for 03/29/2017: Patient seen on 3rd floor [facility] for follow up of stage 4 pressure injuries sacrum/ coccyx wound and R lateral Malleolus wound. Patient positioned to L side for wound assessment with the assistance of selling underwriter. Removed adhesive foam dressing in place to reveal wound.Wound previously noted to sacrum is now closed with intact scar tissue now covering sacral area. Applied skin prep to sacrum and left open to air Wound to R lateral malleolus noted with adhesive foam dressing that was that was last changed on 03/26/2017.Removed adhesive foam dressing in place to reveal wound.Cleansed wound with normal saline. Wound bed is noted with ~100% pale red granulation tissue . Wound measures 0.6cmx 1cm x ~0.2cm.Wound has a round shape with unattached wound clearly defined unattached wound margins from 6 to 9 o' clock., that are also macerated.Undermining is present from 6 to 9 o'clock at 0.3cm.Periwound is noted with newly formed scar tissue and is otherwise unremarkable. Wound bed is moist with minimal sero-sanguinous drainage is without odor. Applied Maxorb AG to wound bed and covered wound to bordered gauze. Applied skin prep before applying adhesive dressing. Arleen Gibbs [facility] Mar 30, 2017 10:16
[2017-03-30 20:00] VITALS: BP 104/85; PULSE 78; RESP 23; TEMP 96.7; O2SAT 97
[2017-03-30] MEDS: QUEtiapine FUMARATE 25 MG TAB PO SCH (21:00)
[2017-03-31] VITALS: BP 119/71; PULSE 78; RESP 23; TEMP 96.7; O2SAT 97
[2017-03-31] MEDS: azaTHIOprine 50 MG TAB PEG SCH ×2 (06:04→18:19)
[2017-03-31] MEDS: JUVEN POWDER 1 PACK G-TUBE SCH ×2 (08:37→21:19)
[2017-03-31] MEDS: SENNOSIDES SYRUP 8.8 MG/5 ML CUP PEG SCH (08:38)
[2017-03-31] MEDS: LACTIC ACID (AMMONIUM LACTATE) 12% LOTION 225 GM BTL TOPICAL SCH ×2 (08:38→21:20)
[2017-03-31] MEDS: LANSOPRAZOLE SOLUTAB 30 MG TAB PEG SCH ×2 (08:38→21:19)
[2017-03-31] MEDS: ENOXAPARIN SODIUM 40 MG/0.4 ML SYRINGE SQ SCH (08:38)
[2017-03-31] MEDS: FLUoxetine HCL LIQUID 20 MG/5 ML CUP PEG SCH (08:38)
[2017-03-31] MEDS: predniSONE 20 MG TAB PEG SCH (08:38)
[2017-03-31] MEDS: LACTOBACILLUS ACIDOPHILUS TAB PEG SCH ×2 (08:38→21:19)
--- NOTE | 2017-03-31 11:18 | HHI.PR ---
Subjective Remarks Follow up for neuro-Behcet's syndrome. Denies sob. Objective Vitals Vital Signs Date Time Temp Pulse Resp B/P (MAP) Pulse Ox O2 Delivery O2 Flow Rate FiO2 03/31/17 00:00 96.7 78 23 119/71 (87) 97 03/30/17 20:00 96.7 78 23 104/85 (91) 97 I/O 03/30/17 03/30/17 03/30/17 03/31/17 03/31/17 03/31/17 06:59 14:59 22:59 06:59 14:59 22:59 Intake Total 974 ml 950 ml Output Total 700 ml 750 ml Balance 274 ml 200 ml Intake Oral 0 ml Tube Feeding 574 ml 550 ml Other 400 ml 400 ml Output Urine Total 700 ml 750 ml # Bowel Movements 0 1 Objective Remarks GENERAL: Thin patient in no apparent distress. CARDIOVASCULAR: Regular rate and rhythm. RESPIRATORY: Transmitted snorting upper respiratory sounds. GASTROINTESTINAL: Abdomen soft, non-tender, nondistended. PEG tube present. NEUROLOGICAL: Awake and alert. Nods head to answer questions. PSYCHIATRIC: Stable mood and affect. 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 (3) Sepsis ICD Code: A41.9 - Sepsis, unspecified organism Status: Resolved (4) Encephalopathy ICD Code: G93.40 - Encephalopathy, unspecified Status: Resolved (5) GI bleed ICD Code: K92.2 - Gastrointestinal hemorrhage, unspecified Status: Resolved (6) HCAP (healthcare-associated pneumonia) ICD Code: J18.9 - Pneumonia, unspecified organism Status: Resolved (7) UTI (urinary tract infection) ICD Code: N39.0 - Urinary tract infection, site not specified Status: Resolved (8) Leucocytosis ICD Code: D72.829 - Elevated white blood cell count, unspecified Status: Resolved (9) Fever ICD Code: R50.9 - Fever, unspecified Status: Resolved (10) Effusion of hip joint ICD Code: M25.459 - Effusion, unspecified hip Status: Acute (11) 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 May be related to prednisone use although no recent change in dose. May be more likely related to Behcet's syndrome as patient has had leukocytosis without infection in the past. -03/18: WBC 13.3-->12.7. Remains afebrile. Good oxygen saturation. No further workup necessary at this time. -Monitor CBC periodically Prerenal azotemia: Improved. S/p IVF BUN 34 on 03/13 03/17: BUN 20. Monitor periodically. Hypotension: Improved Neuro Behet's, history of frontal lobe CVA, encephalopathy, history of meningitis, chronic No new changes on imaging. Patient followed by neurology. Aphasic at baseline. Neurology following the patient Continue Imuran, prednisone EEG shows mild to moderate slowing at times of various depending on the epoch, there was no epileptic activity seen Continue PT/OT Palliative care following the patient and is still indicating the patient is making his own decisions, full code and full aggressive measures [place] discontinued on 03/17 Blurred vision/Diplopia: Related to his neuro Behet's syndrome. -Ophthalmology evaluated patient on 01/11/17. 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 Recommends immunosuppressants and steroids which patient is currently on. Hospital acquired pneumonia: Stable -S/p Levaquin 750 mg x 7 days -Continue suctioning q6h/ prn. -Continue Levsin. -Continue Duonebs as needed Urinary retention: Stable. 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 -Monitor intake and output. -Patient will need to keep Kowalski in place as he is non-ambulatory. Change monthly; last changed 03/30/17. Diabetes: Stable HbA1c 6.6 on 09/25/16. Accu-checks and SSI were discontinued. SIRS/Sepsis, multiple episodes: Resolved. Coccyx decubitus wound: Wound culture with pseudo fluorescens/putida, group D enterococcus VRE which is sensitive to Zosyn. Patient did have one urine culture of Daphney parapsilosis, was treated with fluconazole for 10 days. Patient had episode of diarrhea, C. difficile cultures performed which was negative. Infectious disease consulted and last seen the patient on 10/18/16, at that time it was indicated to observe off antibiotics. 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 Would benefit from long-term steroids. Most recently treated for possible HAP on 02/05. Sinus tachycardia: Stable. S/p Lopressor TSH, free T3, free T4 were normal Melena, bright red blood in stool: Resolved Status post transfusion, emerg[facility], emergent endoscopy GI evaluated and managed patient with emergent colonoscopy showing small ulcer in the colon Continue Prevacid Hemoglobin stable Hypernatremia and hyperchloremia: Resolved. Continue free water flushes 200 cc every 4 hours Hypokalemia with mild hypomagnesemia: Improved s/p repletion. Decreased oral intake and dysphagia on initial presentation Speech therapy following intermittently. S/P barium swallow. Patient with severe dysphagia. GI consulted and PEG tube was placed. Super[employer] following. Due to vomiting tube feeding changed to low volume TwoCal HN, goal rate 50ml/hr. Free Water Flushes and additional free water flush with Maury bid. Coccyx decubitus: Wound care nurse is following. Follow recommendations. Specialty bed Ankle ulcer: R lateral malleolus. -Foam boots. -Wound care nurse following. Follow recommendations. Depression: Patient was evaluated by psychiatrist. Continue Prozac 40 mg daily and Seroquel 25 mg HS. Constipation: Improved. Continue scheduled Senna and Miralax prn. DVT Prophylaxis: Lovenox, TEDs/SCDs. Discharge Planning 01/27: manager sterile called [facility] following up on assistance plan to transfer patient there, awaiting return call. 02/10: CM still awaiting call back. Problem Qualifiers (1) GI bleed: (2) UTI (urinary tract infection): (3) Effusion of hip joint: Mari Talamantes Mar 31, 2017 11:18
[2017-03-31 20:00] VITALS: BP 99/87; PULSE 80; RESP 18; TEMP 96.6; O2SAT 96
[2017-03-31] MEDS: QUEtiapine FUMARATE 25 MG TAB PO SCH (21:00)
[2017-04-01] MEDS: azaTHIOprine 50 MG TAB PEG SCH ×2 (04:30→18:09)
[2017-04-01] MEDS: FLUoxetine HCL LIQUID 20 MG/5 ML CUP PEG SCH (08:49)
[2017-04-01] MEDS: LACTOBACILLUS ACIDOPHILUS TAB PEG SCH ×2 (08:50→20:37)
[2017-04-01] MEDS: SENNOSIDES SYRUP 8.8 MG/5 ML CUP PEG SCH (08:50)
[2017-04-01] MEDS: LANSOPRAZOLE SOLUTAB 30 MG TAB PEG SCH ×2 (08:50→20:38)
[2017-04-01] MEDS: predniSONE 20 MG TAB PEG SCH (08:51)
[2017-04-01] MEDS: ENOXAPARIN SODIUM 40 MG/0.4 ML SYRINGE SQ SCH (08:52)
[2017-04-01] MEDS: LACTIC ACID (AMMONIUM LACTATE) 12% LOTION 225 GM BTL TOPICAL SCH ×2 (08:52→20:37)
[2017-04-01] MEDS: JUVEN POWDER 1 PACK G-TUBE SCH ×2 (08:53→20:37)
[2017-04-01 08:59] VITALS: BP 102/56; PULSE 68; RESP 20; TEMP 98; O2SAT 100
--- NOTE | 2017-04-01 10:50 | HHI.PR ---
Subjective Remarks Follow-up for neuro-Behcet's syndrome. Denies any shortness of breath. Objective Vitals Vital Signs Date Time Temp Pulse Resp B/P (MAP) Pulse Ox O2 Delivery O2 Flow Rate FiO2 04/01/17 08:59 98.0 68 20 102/56 (71) 100 03/31/17 20:00 96.6 80 18 99/87 (91) 96 I/O 03/31/17 03/31/17 03/31/17 04/01/17 04/01/17 04/01/17 06:59 14:59 22:59 06:59 14:59 22:59 Intake Total 950 ml 0 ml 250 ml 1900 ml Output Total 750 ml 450 ml 300 ml Balance 200 ml -450 ml 250 ml 1600 ml Intake Oral 0 ml 0 ml 0 ml Tube Feeding 550 ml 1500 ml Other 400 ml 250 ml 400 ml Output Urine Total 750 ml 450 ml 300 ml # Bowel Movements 1 0 Objective Remarks GENERAL: Thin patient in no apparent distress. CARDIOVASCULAR: Tachycardic rate and regular rhythm. RESPIRATORY: Transmitted snorting upper respiratory sounds. GASTROINTESTINAL: Abdomen soft, non-tender, nondistended. NEUROLOGICAL: Awake and alert. Nods head to answer questions. PSYCHIATRIC: Stable mood and affect. Procedures 07/19/16 EGD with PEG tube placement 09/27/16 colonoscopy Urinary Catheter: Yes Assessment to: Continue Kowalski insert reason: Prolonged Immobilization Date of Insertion: Mar 30, 2017 Vascular Central Line Catheter: No A/P Problem List: (1) Hospital acquired PNA ICD Code: J18.9 - Pneumonia, unspecified organism Status: Acute (2) Neurologic type Behcet's syndrome ICD Code: M35.2 - Behcet's disease Status: Chronic (3) Sepsis ICD Code: A41.9 - Sepsis, unspecified organism Status: Resolved (4) Encephalopathy ICD Code: G93.40 - Encephalopathy, unspecified Status: Resolved (5) GI bleed ICD Code: K92.2 - Gastrointestinal hemorrhage, unspecified Status: Resolved (6) HCAP (healthcare-associated pneumonia) ICD Code: J18.9 - Pneumonia, unspecified organism Status: Resolved (7) UTI (urinary tract infection) ICD Code: N39.0 - Urinary tract infection, site not specified Status: Resolved (8) Leucocytosis ICD Code: D72.829 - Elevated white blood cell count, unspecified Status: Resolved (9) Fever ICD Code: R50.9 - Fever, unspecified Status: Resolved (10) Effusion of hip joint ICD Code: M25.459 - Effusion, unspecified hip Status: Acute (11) 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 May be related to prednisone use although no recent change in dose. May be more likely related to Behcet's syndrome as patient has had leukocytosis without infection in the past. -03/18: WBC 13.3-->12.7. Remains afebrile. Good oxygen saturation. No further workup necessary at this time. -Monitor CBC periodically Prerenal azotemia: Improved. S/p IVF BUN 34 on 03/13 03/17: BUN 20. Monitor periodically. Hypotension: Improved Neuro Behet's, history of frontal lobe CVA, encephalopathy, history of meningitis, chronic No new changes on imaging. Patient followed by neurology. Aphasic at baseline. Neurology following the patient Continue Imuran, prednisone EEG shows mild to moderate slowing at times of various depending on the epoch, there was no epileptic activity seen Continue PT/OT Palliative care following the patient and is still indicating the patient is making his own decisions, full code and full aggressive measures [place] discontinued on 03/17 Blurred vision/Diplopia: Related to his neuro Behet's syndrome. -Ophthalmology evaluated patient on 01/11/17. 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 Recommends immunosuppressants and steroids which patient is currently on. Hospital acquired pneumonia: Stable -S/p Levaquin 750 mg x 7 days -Continue suctioning q6h/ prn. -Continue Levsin. -Continue Duonebs as needed Urinary retention: Stable. 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 -Monitor intake and output. -Patient will need to keep Kowalski in place as he is non-ambulatory. Change monthly; last changed 03/30/17. Diabetes: Stable HbA1c 6.6 on 09/25/16. Accu-checks and SSI were discontinued. SIRS/Sepsis, multiple episodes: Resolved. Coccyx decubitus wound: Wound culture with pseudo fluorescens/putida, group D enterococcus VRE which is sensitive to Zosyn. Patient did have one urine culture of Daphney parapsilosis, was treated with fluconazole for 10 days. Patient had episode of diarrhea, C. difficile cultures performed which was negative. Infectious disease consulted and last seen the patient on 10/18/16, at that time it was indicated to observe off antibiotics. 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 Would benefit from long-term steroids. Most recently treated for possible HAP on 02/05. Sinus tachycardia: Stable. S/p Lopressor TSH, free T3, free T4 were normal Melena, bright red blood in stool: Resolved Status post transfusion, emergently transferred to main hospital, emergent endoscopy GI evaluated and managed patient with emergent colonoscopy showing small ulcer in the colon Continue Prevacid Hemoglobin stable Hypernatremia and hyperchloremia: Resolved. Continue free water flushes 200 cc every 4 hours Hypokalemia with mild hypomagnesemia: Improved s/p repletion. Decreased oral intake and dysphagia on initial presentation Speech therapy following intermittently. S/P barium swallow. Patient with severe dysphagia. GI consulted and PEG tube was placed. Kiln Car Unloader following. Due to vomiting tube feeding changed to low volume TwoCal HN, goal rate 50ml/hr. Free Water Flushes and additional free water flush with Maury bid. Coccyx decubitus: Wound care nurse is following. Follow recommendations. Specialty bed Ankle ulcer: R lateral malleolus. -Foam boots. -Wound care nurse following. Follow recommendations. Depression: Patient was evaluated by psychiatrist. Continue Prozac 40 mg daily and Seroquel 25 mg HS. Constipation: Improved. Continue scheduled Senna and Miralax prn. DVT Prophylaxis: Lovenox, TEDs/SCDs. Discharge Planning 01/27: sustainability manager called [facility] following up on assistance plan to transfer patient there, awaiting return call. 02/10: CM still awaiting call back. Problem Qualifiers (1) GI bleed: (2) UTI (urinary tract infection): (3) Effusion of hip joint: Mari Talamantes Apr 01, 2017 10:50
[2017-04-01 20:00] VITALS: BP 105/88; PULSE 85; RESP 20; TEMP 96.4; O2SAT 96
[2017-04-01] MEDS: QUEtiapine FUMARATE 25 MG TAB PO SCH (20:38)
[2017-04-02] MEDS: azaTHIOprine 50 MG TAB PEG SCH ×2 (06:25→18:35)
[2017-04-02 08:00] VITALS: BP 104/67; PULSE 103; RESP 18; TEMP 98.1; O2SAT 95
[2017-04-02] MEDS: FLUoxetine HCL LIQUID 20 MG/5 ML CUP PEG SCH (08:52)
[2017-04-02] MEDS: LANSOPRAZOLE SOLUTAB 30 MG TAB PEG SCH ×2 (08:53→21:19)
[2017-04-02] MEDS: predniSONE 20 MG TAB PEG SCH (08:53)
[2017-04-02] MEDS: LACTOBACILLUS ACIDOPHILUS TAB PEG SCH ×2 (08:53→21:19)
[2017-04-02] MEDS: SENNOSIDES SYRUP 8.8 MG/5 ML CUP PEG SCH (08:53)
[2017-04-02] MEDS: LACTIC ACID (AMMONIUM LACTATE) 12% LOTION 225 GM BTL TOPICAL SCH ×2 (08:54→21:19)
[2017-04-02] MEDS: JUVEN POWDER 1 PACK G-TUBE SCH ×2 (08:54→21:18)
[2017-04-02] MEDS: ENOXAPARIN SODIUM 40 MG/0.4 ML SYRINGE SQ SCH (08:54)
--- NOTE | 2017-04-02 13:30 | HHI.PR ---
Subjective Remarks Patient evaluated this morning. Follow-up for neuro Behet's syndrome. He nods "yes" when I ask him if he is breathing okay. Objective Vitals Vital Signs Date Time Temp Pulse Resp B/P (MAP) Pulse Ox O2 Delivery O2 Flow Rate FiO2 04/02/17 08:00 98.1 103 18 104/67 (79) 95 04/01/17 20:00 96.4 85 20 105/88 (94) 96 I/O 04/01/17 04/01/17 04/01/17 04/02/17 04/02/17 04/02/17 07:00 15:00 23:00 07:00 15:00 23:00 Intake Total 1900 ml 1000 ml Output Total 300 ml 1850 ml Balance 1600 ml -850 ml Intake Oral 0 ml 0 ml Tube Feeding 1500 ml 600 ml Other 400 ml 400 ml Output Urine Total 300 ml 1850 ml # Bowel Movements 1 Objective Remarks GENERAL: Thin patient in no apparent distress. CARDIOVASCULAR: Tachycardic rate and regular rhythm. RESPIRATORY: Transmitted grunting upper respiratory sounds. No wheezes or rales. GASTROINTESTINAL: Abdomen soft, non-tender, nondistended. PEG tube present. NEUROLOGICAL: Awake and alert. Nods head to answer questions. PSYCHIATRIC: Stable mood and affect. 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 (3) Sepsis ICD Code: A41.9 - Sepsis, unspecified organism Status: Resolved (4) Encephalopathy ICD Code: G93.40 - Encephalopathy, unspecified Status: Resolved (5) GI bleed ICD Code: K92.2 - Gastrointestinal hemorrhage, unspecified Status: Resolved (6) HCAP (healthcare-associated pneumonia) ICD Code: J18.9 - Pneumonia, unspecified organism Status: Resolved (7) UTI (urinary tract infection) ICD Code: N39.0 - Urinary tract infection, site not specified Status: Resolved (8) Leucocytosis ICD Code: D72.829 - Elevated white blood cell count, unspecified Status: Resolved (9) Fever ICD Code: R50.9 - Fever, unspecified Status: Resolved (10) Effusion of hip joint ICD Code: M25.459 - Effusion, unspecified hip Status: Acute (11) 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 May be related to prednisone use although no recent change in dose. May be more likely related to Behcet's syndrome as patient has had leukocytosis without infection in the past. -03/18: WBC 13.3-->12.7. Remains afebrile. Good oxygen saturation. No further workup necessary at this time. -Monitor CBC periodically Prerenal azotemia: Improved. S/p IVF BUN 34 on 03/13 03/17: BUN 20. Monitor periodically. Hypotension: Improved Neuro Behet's, history of frontal lobe CVA, encephalopathy, history of meningitis, chronic No new changes on imaging. Patient followed by neurology. Aphasic at baseline. Neurology following the patient Continue Imuran, prednisone EEG shows mild to moderate slowing at times of various depending on the epoch, there was no epileptic activity seen Continue PT/OT Palliative care following the patient and is still indicating the patient is making his own decisions, full code and full aggressive measures [place] discontinued on 03/17 Blurred vision/Diplopia: Related to his neuro Behet's syndrome. -Ophthalmology evaluated patient on 01/11/17. 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 Recommends immunosuppressants and steroids which patient is currently on. Hospital acquired pneumonia: Stable -S/p Levaquin 750 mg x 7 days -Continue suctioning q6h/ prn. -Continue Levsin. -Continue Duonebs as needed Urinary retention: Stable. 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 -Monitor intake and output. -Patient will need to keep Kowalski in place as he is non-ambulatory. Change monthly; last changed 03/30/17. Diabetes: Stable HbA1c 6.6 on 09/25/16. Accu-checks and SSI were discontinued. SIRS/Sepsis, multiple episodes: Resolved. Coccyx decubitus wound: Wound culture with pseudo fluorescens/putida, group D enterococcus VRE which is sensitive to Zosyn. Patient did have one urine culture of Daphney parapsilosis, was treated with fluconazole for 10 days. Patient had episode of diarrhea, C. difficile cultures performed which was negative. Infectious disease consulted and last seen the patient on 10/18/16, at that time it was indicated to observe off antibiotics. 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 Would benefit from long-term steroids. Most recently treated for possible HAP on 02/05. Sinus tachycardia: Stable. S/p Lopressor TSH, free T3, free T4 were normal Melena, bright red blood in stool: Resolved Status post transfusion, emergently transferred to main hospital, emergent endoscopy GI evaluated and managed patient with emergent colonoscopy showing small ulcer in the colon Continue Prevacid Hemoglobin stable Hypernatremia and hyperchloremia: Resolved. Continue free water flushes 200 cc every 4 hours Hypokalemia with mild hypomagnesemia: Improved s/p repletion. Decreased oral intake and dysphagia on initial presentation Speech therapy following intermittently. S/P barium swallow. Patient with severe dysphagia. GI consulted and PEG tube was placed. Honing Job Setter following. Due to vomiting tube feeding changed to low volume TwoCal HN, goal rate 50ml/hr. Free Water Flushes and additional free water flush with Maury bid. Coccyx decubitus: Wound care nurse is following. Follow recommendations. Specialty bed Ankle ulcer: R lateral malleolus. -Foam boots. -Wound care nurse following. Follow recommendations. Depression: Patient was evaluated by psychiatrist. Continue Prozac 40 mg daily and Seroquel 25 mg HS. Constipation: Improved. Continue scheduled Senna and Miralax prn. DVT Prophylaxis: Lovenox, TEDs/SCDs. Discharge Planning 01/27: strategic manager [facility] following up on assistance plan to transfer patient there, awaiting return call. 02/10: CM still awaiting call back. Problem Qualifiers (1) GI bleed: (2) UTI (urinary tract infection): (3) Effusion of hip joint: Mari Talamantes Apr 02, 2017 13:29
[2017-04-02] MEDS: QUEtiapine FUMARATE 25 MG TAB PO SCH (21:00)
[2017-04-02 21:38] VITALS: BP 101/72; PULSE 80; RESP 20; TEMP 98.9; O2SAT 94
[2017-04-03] MEDS: azaTHIOprine 50 MG TAB PEG SCH ×2 (06:13→10:56)
[2017-04-03 08:00] VITALS: BP 128/76; PULSE 85; RESP 17; TEMP 97.5; O2SAT 96
[2017-04-03] MEDS: SENNOSIDES SYRUP 8.8 MG/5 ML CUP PEG SCH (09:00)
[2017-04-03] MEDS: JUVEN POWDER 1 PACK G-TUBE SCH ×2 (09:00→22:08)
[2017-04-03] MEDS: LACTIC ACID (AMMONIUM LACTATE) 12% LOTION 225 GM BTL TOPICAL SCH ×2 (09:00→22:08)
--- NOTE | 2017-04-03 10:46 | HHI.PR ---
Subjective Remarks Follow-up for neuro-Behcet's syndrome. Objective Vitals Vital Signs Date Time Temp Pulse Resp B/P (MAP) Pulse Ox O2 Delivery O2 Flow Rate FiO2 04/03/17 08:00 97.5 85 17 128/76 (93) 96 04/03/17 04:27 04/03/17 00:26 04/02/17 21:38 98.9 80 20 101/72 (82) 94 I/O 04/02/17 04/02/17 04/02/17 04/03/17 04/03/17 04/03/17 07:00 15:00 23:00 07:00 15:00 23:00 Intake Total 1000 ml 1320 ml Output Total 1850 ml 650 ml 350 ml Balance -850 ml -650 ml 970 ml Intake Oral 0 ml Tube Feeding 600 ml 680 ml Other 400 ml 640 ml Output Urine Total 1850 ml 650 ml 350 ml # Bowel Movements 1 0 0 Objective Remarks GENERAL: Thin patient in no apparent distress. CARDIOVASCULAR: Regular rate and rhythm. RESPIRATORY: Transmitted grunting upper respiratory sounds. GASTROINTESTINAL: Abdomen soft, non-tender, nondistended. PEG tube present. NEUROLOGICAL: Awake and alert. Nods head to answer questions. PSYCHIATRIC: Stable mood and affect. 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 (3) Sepsis ICD Code: A41.9 - Sepsis, unspecified organism Status: Resolved (4) Encephalopathy ICD Code: G93.40 - Encephalopathy, unspecified Status: Resolved (5) GI bleed ICD Code: K92.2 - Gastrointestinal hemorrhage, unspecified Status: Resolved (6) HCAP (healthcare-associated pneumonia) ICD Code: J18.9 - Pneumonia, unspecified organism Status: Resolved (7) UTI (urinary tract infection) ICD Code: N39.0 - Urinary tract infection, site not specified Status: Resolved (8) Leucocytosis ICD Code: D72.829 - Elevated white blood cell count, unspecified Status: Resolved (9) Fever ICD Code: R50.9 - Fever, unspecified Status: Resolved (10) Effusion of hip joint ICD Code: M25.459 - Effusion, unspecified hip Status: Acute (11) 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 May be related to prednisone use although no recent change in dose. May be more likely related to Behcet's syndrome as patient has had leukocytosis without infection in the past. -03/18: WBC 13.3-->12.7. Remains afebrile. Good oxygen saturation. No further workup necessary at this time. -Monitor CBC periodically Prerenal azotemia: Improved. S/p IVF BUN 34 on 03/13 03/17: BUN 20. Monitor periodically. Hypotension: Improved Neuro Behet's, history of frontal lobe CVA, encephalopathy, history of meningitis, chronic No new changes on imaging. Patient followed by neurology. Aphasic at baseline. Neurology following the patient Continue Imuran, prednisone EEG shows mild to moderate slowing at times of various depending on the epoch, there was no epileptic activity seen Continue PT/OT Palliative care following the patient and is still indicating the patient is making his own decisions, full code and full aggressive measures [place] discontinued on 03/17 Blurred vision/Diplopia: Related to his neuro Behet's syndrome. -Ophthalmology evaluated patient on 01/11/17. 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 Recommends immunosuppressants and steroids which patient is currently on. Hospital acquired pneumonia: Stable -S/p Levaquin 750 mg x 7 days -Continue suctioning q6h/ prn. -Continue Levsin. -Continue Duonebs as needed Urinary retention: Stable. 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 -Monitor intake and output. -Patient will need to keep Kowalski in place as he is non-ambulatory. Change monthly; last changed 03/30/17. Diabetes: Stable HbA1c 6.6 on 09/25/16. Accu-checks and SSI were discontinued. SIRS/Sepsis, multiple episodes: Resolved. Coccyx decubitus wound: Wound culture with pseudo fluorescens/putida, group D enterococcus VRE which is sensitive to Zosyn. Patient did have one urine culture of Daphney parapsilosis, was treated with fluconazole for 10 days. Patient had episode of diarrhea, C. difficile cultures performed which was negative. Infectious disease consulted and last seen the patient on 10/18/16, at that time it was indicated to observe off antibiotics. 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 Would benefit from long-term steroids. Most recently treated for possible HAP on 02/05. Sinus tachycardia: Stable. S/p Lopressor TSH, free T3, free T4 were normal Melena, bright red blood in stool: Resolved Status post transfusion, emergently transferred to main hospital, emergent endoscopy GI evaluated and managed patient with emergent colonoscopy showing small ulcer in the colon Continue Prevacid Hemoglobin stable Hypernatremia and hyperchloremia: Resolved. Continue free water flushes 200 cc every 4 hours Hypokalemia with mild hypomagnesemia: Improved s/p repletion. Decreased oral intake and dysphagia on initial presentation Speech therapy following intermittently. S/P barium swallow. Patient with severe dysphagia. GI consulted and PEG tube was placed. Master Scheduler following. Due to vomiting tube feeding changed to low volume TwoCal HN, goal rate 50ml/hr. Free Water Flushes and additional free water flush with Maury bid. Coccyx decubitus: Wound care nurse is following. Follow recommendations. Specialty bed Ankle ulcer: R lateral malleolus. -Foam boots. -Wound care nurse following. Follow recommendations. Depression: Patient was evaluated by psychiatrist. Continue Prozac 40 mg daily and Seroquel 25 mg HS. Constipation: Improved. Continue scheduled Senna and Miralax prn. DVT Prophylaxis: Lovenox, TEDs/SCDs. Discharge Planning 01/27: ct manager called [facility] following up on assistance plan to transfer patient there, awaiting return call. 02/10: CM still awaiting call back. Problem Qualifiers (1) GI bleed: (2) UTI (urinary tract infection): (3) Effusion of hip joint: Mari Talamantes Apr 03, 2017 10:46
[2017-04-03] MEDS: ENOXAPARIN SODIUM 40 MG/0.4 ML SYRINGE SQ SCH (10:55)
[2017-04-03] MEDS: FLUoxetine HCL LIQUID 20 MG/5 ML CUP PEG SCH (10:56)
[2017-04-03] MEDS: LANSOPRAZOLE SOLUTAB 30 MG TAB PEG SCH ×2 (10:56→22:07)
[2017-04-03] MEDS: predniSONE 20 MG TAB PEG SCH (10:56)
[2017-04-03] MEDS: LACTOBACILLUS ACIDOPHILUS TAB PEG SCH ×2 (10:56→22:07)
[2017-04-03 20:00] VITALS: BP 104/81; PULSE 76; RESP 16; TEMP 98.1; O2SAT 94
[2017-04-03] MEDS: QUEtiapine FUMARATE 25 MG TAB PO SCH (22:07)
[2017-04-04] MEDS: azaTHIOprine 50 MG TAB PEG SCH ×2 (06:08→18:28)
[2017-04-04] MEDS: PADIMATE (CHAPSTICK) 4.5 GM TUBE TOPICAL PRN (06:23)
[2017-04-04 08:00] VITALS: BP 117/82; PULSE 93; RESP 16; TEMP 97.5; O2SAT 98
[2017-04-04] MEDS: LACTIC ACID (AMMONIUM LACTATE) 12% LOTION 225 GM BTL TOPICAL SCH ×2 (08:21→21:56)
[2017-04-04] MEDS: JUVEN POWDER 1 PACK G-TUBE SCH ×2 (08:21→21:00)
[2017-04-04] MEDS: LANSOPRAZOLE SOLUTAB 30 MG TAB PEG SCH ×2 (08:21→21:55)
[2017-04-04] MEDS: ENOXAPARIN SODIUM 40 MG/0.4 ML SYRINGE SQ SCH (08:22)
[2017-04-04] MEDS: FLUoxetine HCL LIQUID 20 MG/5 ML CUP PEG SCH (08:22)
[2017-04-04] MEDS: SENNOSIDES SYRUP 8.8 MG/5 ML CUP PEG SCH (08:22)
[2017-04-04] MEDS: LACTOBACILLUS ACIDOPHILUS TAB PEG SCH ×2 (08:23→21:55)
[2017-04-04] MEDS: predniSONE 20 MG TAB PEG SCH (08:23)
--- NOTE | 2017-04-04 08:30 | HHI.PR ---
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 Patient denies any new complaints. No change in clinical status. Awaiting case management for discharge planning. Objective Vitals Vital Signs Date Time Temp Pulse Resp B/P (MAP) Pulse Ox O2 Delivery O2 Flow Rate FiO2 04/04/17 08:00 97.5 93 16 117/82 (94) 98 04/03/17 20:00 98.1 76 16 104/81 (89) 94 I/O 04/03/17 04/03/17 04/03/17 04/04/17 04/04/17 04/04/17 06:59 14:59 22:59 06:59 14:59 22:59 Intake Total 1320 ml 1120 ml Output Total 350 ml 250 ml 600 ml Balance 970 ml -250 ml 520 ml Tube Feeding 680 ml 600 ml Tube Irrigant 400 ml Other 640 ml 120 ml Output Urine Total 350 ml 250 ml 600 ml # Bowel Movements 0 1 Objective Remarks GENERAL: Well-developed, cachectic and contracted. HEENT: Head is normocephalic without any lesions or masses noted. Facial features are symmetric. Eyes: Extraocular muscles are intact. Conjunctivae were clear. NECK: Trachea midline no deviation. CARDIAC: Regular rhythm, tachycardia noted. S1/S2 are heard. No murmurs gallops or rubs. LUNGS: Clear to auscultation bilaterally. No wheeze, rhonchi or rales. No use of accessory muscles on inspiration or expiration. ABDOMEN: Soft, nontender. Nondistended. Bowel sounds heard in all 4 quadrants. No organomegaly or masses. Negative rebound, negative guarding. PEG tube noted without any excoriation. EXTREMITIES: No edema, pulses are equal bilaterally. No cyanosis or clubbing. Ulceration noted over his left lower extremity lateral malleolus Procedures 07/19/16 EGD with PEG tube placement 09/27/16 colonoscopy Urinary Catheter: Yes Assessment to: Continue Kowalski insert reason: Obstruction/Retention Date of Insertion: Mar 30, 2017 Vascular Central Line Catheter: No A/P Assessment and Plan Neuro-Behcet, history of frontal lobe CVA, encephalopathy, history of meningitis , Blurred vision/double vision, urinary retention, chronic No new changes on imaging. Patient was followed by neurology. Aphasic at baseline. 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 03/30/17, --Decreased oral intake and dysphagia on initial presentation Speech therapy evaluated patient. S/P barium swallow. Patient with severe dysphagia. GI was consulted and PEG tube was placed. Patient was intolerant to bolus feeding Dietary reconsulted and made recommendations Coccyx decubitus. Ankle ulceration Wound care nurse is following the patient for management Patient with specialty bed Mood disorder, depression Psychiatry evaluated patient and made recommendations Prozac 40 mg daily Seroquel 25 mg at bedtime Diabetes Glucose continues to be well controlled, DVT Prophylaxis: Lovenox, TEDs/SCDs. Case management discharge planning, Records reviewed, no change in present treatment plan. Discharge Planning Case management for discharge planning, recent records indicate that planning on transferring back to [place], Ede Richardson Apr 04, 2017 08:30
[2017-04-04 18:19] VITALS: BP 143/78; RESP 18; TEMP 97.5
[2017-04-04 20:00] VITALS: BP 117/86; PULSE 90; RESP 20; TEMP 98.9; O2SAT 95
[2017-04-04] MEDS: QUEtiapine FUMARATE 25 MG TAB PO SCH (21:55)
[2017-04-05] MEDS: HYOSCYAMINE SOLN 0.125 MG/ML 15 ML BTL PEG PRN (02:59)
[2017-04-05] MEDS: PADIMATE (CHAPSTICK) 4.5 GM TUBE TOPICAL PRN (03:00)
[2017-04-05] MEDS: azaTHIOprine 50 MG TAB PEG SCH ×2 (06:58→18:00)
--- NOTE | 2017-04-05 07:49 | HHI.PR ---
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 Patient denies any new complaints. No change in clinical status. Objective Vitals Vital Signs Date Time Temp Pulse Resp B/P (MAP) Pulse Ox O2 Delivery O2 Flow Rate FiO2 04/04/17 20:00 98.9 90 20 117/86 (96) 95 04/04/17 18:19 97.5 18 143/78 (99) 04/04/17 08:00 97.5 93 16 117/82 (94) 98 I/O 04/04/17 04/04/17 04/04/17 04/05/17 04/05/17 04/05/17 06:59 14:59 22:59 06:59 14:59 22:59 Intake Total 1120 ml 250 ml 0 ml Output Total 600 ml 550 ml 475 ml Balance 520 ml -300 ml -475 ml Intake Oral 0 ml Tube Feeding 600 ml 50 ml Tube Irrigant 400 ml Other 120 ml 200 ml Output Urine Total 600 ml 550 ml 475 ml # Bowel Movements 1 0 Objective Remarks GENERAL: Well-developed, cachectic and contracted. HEENT: Head is normocephalic without any lesions or masses noted. Facial features are symmetric. Eyes: Extraocular muscles are intact. Conjunctivae were clear. NECK: Trachea midline no deviation. CARDIAC: Regular rhythm, tachycardia noted. S1/S2 are heard. No murmurs gallops or rubs. LUNGS: Clear to auscultation bilaterally. No wheeze, rhonchi or rales. No use of accessory muscles on inspiration or expiration. ABDOMEN: Soft, nontender. Nondistended. Bowel sounds heard in all 4 quadrants. No organomegaly or masses. Negative rebound, negative guarding. PEG tube noted without any excoriation. EXTREMITIES: No edema, pulses are equal bilaterally. No cyanosis or clubbing. Procedures 07/19/16 EGD with PEG tube placement 09/27/16 colonoscopy Urinary Catheter: Yes Assessment to: Continue Kowalski insert reason: Obstruction/Retention Date of Insertion: Mar 30, 2017 Vascular Central Line Catheter: No A/P Assessment and Plan Neuro-Behcet, history of frontal lobe CVA, encephalopathy, history of meningitis , Blurred vision/double vision, urinary retention, chronic No new changes on imaging. Patient was followed by neurology. Aphasic at baseline. 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 03/30/17, --Decreased oral intake and dysphagia on initial presentation Speech therapy evaluated patient. S/P barium swallow. Patient with severe dysphagia. GI was consulted and PEG tube was placed. Patient was intolerant to bolus feeding Dietary reconsulted and made recommendations Coccyx decubitus. Ankle ulceration Wound care nurse is following the patient for management Patient with specialty bed Mood disorder, depression Psychiatry evaluated patient and made recommendations Prozac 40 mg daily Seroquel 25 mg at bedtime Diabetes Glucose continues to be well controlled, DVT Prophylaxis: Lovenox, TEDs/SCDs. Records reviewed, no change in present treatment plan. Case management discharge planning, Discharge Planning Case management for discharge planning, recent records indicate that planning on transferring back to [place], Ede Richardson Apr 05, 2017 07:49
[2017-04-05 08:00] VITALS: BP 115/86; RESP 23; TEMP 98.5; O2SAT 97
[2017-04-05] MEDS: ENOXAPARIN SODIUM 40 MG/0.4 ML SYRINGE SQ SCH (08:53)
[2017-04-05] MEDS: FLUoxetine HCL LIQUID 20 MG/5 ML CUP PEG SCH (08:54)
[2017-04-05] MEDS: predniSONE 20 MG TAB PEG SCH (08:54)
[2017-04-05] MEDS: SENNOSIDES SYRUP 8.8 MG/5 ML CUP PEG SCH (08:55)
[2017-04-05] MEDS: JUVEN POWDER 1 PACK G-TUBE SCH ×2 (08:55→22:13)
[2017-04-05] MEDS: LANSOPRAZOLE SOLUTAB 30 MG TAB PEG SCH ×2 (08:55→22:12)
[2017-04-05] MEDS: LACTOBACILLUS ACIDOPHILUS TAB PEG SCH ×2 (08:55→22:12)
[2017-04-05] MEDS: LACTIC ACID (AMMONIUM LACTATE) 12% LOTION 225 GM BTL TOPICAL SCH ×2 (08:56→22:13)
[2017-04-05 16:00] VITALS: BP 95/69; PULSE 93; RESP 22; TEMP 96.3; O2SAT 96
[2017-04-05 19:00] VITALS: BP 116/73; PULSE 91; RESP 24; TEMP 96.7; O2SAT 90
[2017-04-05] MEDS: QUEtiapine FUMARATE 25 MG TAB PO SCH (22:12)
[2017-04-06] MEDS: azaTHIOprine 50 MG TAB PEG SCH ×2 (05:28→17:10)
--- NOTE | 2017-04-06 07:36 | HHI.PR ---
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 Patient denies any new complaints. No change in clinical status. Awaiting case management for discharge planning Objective Vitals Vital Signs Date Time Temp Pulse Resp B/P (MAP) Pulse Ox O2 Delivery O2 Flow Rate FiO2 04/05/17 19:00 96.7 91 24 116/73 (87) 90 04/05/17 16:00 96.3 93 22 95/69 (78) 96 04/05/17 08:00 98.5 23 115/86 (96) 97 I/O 04/05/17 04/05/17 04/05/17 04/06/17 04/06/17 04/06/17 07:00 15:00 23:00 07:00 15:00 23:00 Intake Total 0 ml 250 ml 200 ml 996 ml Output Total 475 ml 550 ml Balance -475 ml -300 ml 200 ml 996 ml Intake Oral 0 ml Tube Feeding 50 ml 600 ml Other 200 ml 200 ml 396 ml Output Urine Total 475 ml 550 ml # Bowel Movements 0 0 Objective Remarks GENERAL: Well-developed, cachectic and contracted. HEENT: Head is normocephalic without any lesions or masses noted. Facial features are symmetric. Eyes: Extraocular muscles are intact. Conjunctivae were clear. NECK: Trachea midline no deviation. CARDIAC: Regular rhythm, tachycardia noted. S1/S2 are heard. No murmurs gallops or rubs. LUNGS: Clear to auscultation bilaterally. No wheeze, rhonchi or rales. No use of accessory muscles on inspiration or expiration. ABDOMEN: Soft, nontender. Nondistended. Bowel sounds heard in all 4 quadrants. No organomegaly or masses. Negative rebound, negative guarding. PEG tube noted without any excoriation. EXTREMITIES: No edema, pulses are equal bilaterally. No cyanosis or clubbing. Procedures 07/19/16 EGD with PEG tube placement 09/27/16 colonoscopy Urinary Catheter: Yes Assessment to: Continue Kowalski insert reason: Obstruction/Retention Date of Insertion: Mar 30, 2017 Vascular Central Line Catheter: No A/P Assessment and Plan Neuro-Behcet, history of frontal lobe CVA, encephalopathy, history of meningitis , Blurred vision/double vision, urinary retention, chronic No new changes on imaging. Patient was followed by neurology. Aphasic at baseline. 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 03/30/17, --Decreased oral intake and dysphagia on initial presentation Speech therapy evaluated patient. S/P barium swallow. Patient with severe dysphagia. GI was consulted and PEG tube was placed. Patient was intolerant to bolus feeding Dietary reconsulted and made recommendations Coccyx decubitus. Ankle ulceration Wound care nurse is following the patient for management Patient with specialty bed Mood disorder, depression Psychiatry evaluated patient and made recommendations Prozac 40 mg daily Seroquel 25 mg at bedtime Diabetes Glucose continues to be well controlled, DVT Prophylaxis: Lovenox, TEDs/SCDs. Records reviewed, Case management discharge planning, no change in present treatment plan. Discharge Planning Case management for discharge planning, recent records indicate that planning on transferring back to [place], Ede Richardson Apr 06, 2017 07:36
[2017-04-06 07:51] VITALS: BP 96/72; PULSE 85; RESP 20; TEMP 97.7; O2SAT 98
[2017-04-06] MEDS: JUVEN POWDER 1 PACK G-TUBE SCH ×2 (09:15→20:57)
[2017-04-06] MEDS: LACTOBACILLUS ACIDOPHILUS TAB PEG SCH ×2 (09:16→20:56)
[2017-04-06] MEDS: predniSONE 20 MG TAB PEG SCH (09:16)
[2017-04-06] MEDS: FLUoxetine HCL LIQUID 20 MG/5 ML CUP PEG SCH (09:16)
[2017-04-06] MEDS: ENOXAPARIN SODIUM 40 MG/0.4 ML SYRINGE SQ SCH (09:16)
[2017-04-06] MEDS: LANSOPRAZOLE SOLUTAB 30 MG TAB PEG SCH ×2 (09:16→20:57)
[2017-04-06] MEDS: LACTIC ACID (AMMONIUM LACTATE) 12% LOTION 225 GM BTL TOPICAL SCH ×2 (09:16→20:57)
[2017-04-06] MEDS: SENNOSIDES SYRUP 8.8 MG/5 ML CUP PEG SCH (09:16)
[2017-04-06 20:00] VITALS: BP 97/71; PULSE 81; RESP 20; TEMP 97.1; O2SAT 96
[2017-04-06] MEDS: QUEtiapine FUMARATE 25 MG TAB PO SCH (20:56)
[2017-04-07] MEDS: azaTHIOprine 50 MG TAB PEG SCH ×2 (06:06→18:03)
--- NOTE | 2017-04-07 07:38 | HHI.PR ---
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 Patient denies any new complaints. No change in clinical status. Awaiting case management discharge planning Objective Vitals Vital Signs Date Time Temp Pulse Resp B/P (MAP) Pulse Ox O2 Delivery O2 Flow Rate FiO2 04/06/17 20:00 97.1 81 20 97/71 (80) 96 04/06/17 07:51 97.7 85 20 96/72 (80) 98 I/O 04/06/17 04/06/17 04/06/17 04/07/17 04/07/17 04/07/17 06:59 14:59 22:59 06:59 14:59 22:59 Intake Total 996 ml 1150 ml 1146 ml Output Total 360 ml 450 ml 1150 ml Balance 996 ml -360 ml 700 ml -4 ml Tube Feeding 600 ml 600 ml 600 ml Tube Irrigant 150 ml 546 ml Other 396 ml 400 ml Output Urine Total 360 ml 450 ml 1150 ml # Bowel Movements 1 1 Objective Remarks GENERAL: Well-developed, cachectic and contracted. HEENT: Head is normocephalic without any lesions or masses noted. Facial features are symmetric. Eyes: Extraocular muscles are intact. Conjunctivae were clear. NECK: Trachea midline no deviation. CARDIAC: Regular rhythm, tachycardia noted. S1/S2 are heard. No murmurs gallops or rubs. LUNGS: Clear to auscultation bilaterally. No wheeze, rhonchi or rales. No use of accessory muscles on inspiration or expiration. ABDOMEN: Soft, nontender. Nondistended. Bowel sounds heard in all 4 quadrants. No organomegaly or masses. Negative rebound, negative guarding. PEG tube noted without any excoriation. EXTREMITIES: No edema, pulses are equal bilaterally. No cyanosis or clubbing. Procedures 07/19/16 EGD with PEG tube placement 09/27/16 colonoscopy Urinary Catheter: Yes Assessment to: Continue Kowalski insert reason: Obstruction/Retention Date of Insertion: Mar 30, 2017 Vascular Central Line Catheter: No A/P Assessment and Plan Neuro-Behcet, history of frontal lobe CVA, encephalopathy, history of meningitis , Blurred vision/double vision, urinary retention, chronic No new changes on imaging. Patient was followed by neurology. Aphasic at baseline. 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 03/30/17, --Decreased oral intake and dysphagia on initial presentation Speech therapy evaluated patient. S/P barium swallow. Patient with severe dysphagia. GI was consulted and PEG tube was placed. Patient was intolerant to bolus feeding Dietary reconsulted and made recommendations Coccyx decubitus. Ankle ulceration Wound care nurse is following the patient for management Patient with specialty bed Mood disorder, depression Psychiatry evaluated patient and made recommendations Prozac 40 mg daily Seroquel 25 mg at bedtime Diabetes Glucose continues to be well controlled, DVT Prophylaxis: Lovenox, TEDs/SCDs. Records reviewed, no change in present treatment plan. Case management discharge planning, Discharge Planning Case management for discharge planning, recent records indicate that planning on transferring back to [place], Ede Richardson Apr 07, 2017 07:38
[2017-04-07 08:00] VITALS: BP 101/78; PULSE 98; RESP 16; TEMP 98; O2SAT 97
[2017-04-07] MEDS: FLUoxetine HCL LIQUID 20 MG/5 ML CUP PEG SCH (09:24)
[2017-04-07] MEDS: predniSONE 20 MG TAB PEG SCH (09:24)
[2017-04-07] MEDS: LANSOPRAZOLE SOLUTAB 30 MG TAB PEG SCH ×2 (09:24→20:35)
[2017-04-07] MEDS: LACTOBACILLUS ACIDOPHILUS TAB PEG SCH ×2 (09:24→20:35)
[2017-04-07] MEDS: ENOXAPARIN SODIUM 40 MG/0.4 ML SYRINGE SQ SCH (09:24)
[2017-04-07] MEDS: SENNOSIDES SYRUP 8.8 MG/5 ML CUP PEG SCH (09:25)
[2017-04-07] MEDS: LACTIC ACID (AMMONIUM LACTATE) 12% LOTION 225 GM BTL TOPICAL SCH ×2 (09:25→20:36)
[2017-04-07] MEDS: JUVEN POWDER 1 PACK G-TUBE SCH ×2 (09:25→20:35)
[2017-04-07 20:00] VITALS: BP 116/81; PULSE 78; RESP 18; TEMP 96.4; O2SAT 99
[2017-04-07] MEDS: QUEtiapine FUMARATE 25 MG TAB PO SCH (20:35)
[2017-04-08] MEDS: azaTHIOprine 50 MG TAB PEG SCH ×2 (06:06→18:15)
--- NOTE | 2017-04-08 07:40 | HHI.PR ---
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 Patient is not indicating any new complaints. No change in clinical status. Objective Vitals Vital Signs Date Time Temp Pulse Resp B/P (MAP) Pulse Ox O2 Delivery O2 Flow Rate FiO2 04/07/17 20:00 96.4 78 18 116/81 (93) 99 04/07/17 08:00 98.0 98 16 101/78 (86) 97 I/O 04/07/17 04/07/17 04/07/17 04/08/17 04/08/17 04/08/17 07:00 15:00 23:00 07:00 15:00 23:00 Intake Total 1146 ml 1150 ml 1480 ml Output Total 1150 ml 1050 ml 550 ml Balance -4 ml 100 ml 930 ml Intake Oral 0 ml 0 ml Tube Feeding 600 ml 600 ml 600 ml Tube Irrigant 546 ml 150 ml 400 ml Other 400 ml 480 ml Output Urine Total 1150 ml 1050 ml 550 ml # Bowel Movements 1 1 Objective Remarks GENERAL: Well-developed, cachectic and contracted. HEENT: Head is normocephalic without any lesions or masses noted. Facial features are symmetric. Eyes: Extraocular muscles are intact. Conjunctivae were clear. NECK: Trachea midline no deviation. CARDIAC: Regular rhythm, tachycardia noted. S1/S2 are heard. No murmurs gallops or rubs. LUNGS: Clear to auscultation bilaterally. No wheeze, rhonchi or rales. No use of accessory muscles on inspiration or expiration. ABDOMEN: Soft, nontender. Nondistended. Bowel sounds heard in all 4 quadrants. No organomegaly or masses. Negative rebound, negative guarding. PEG tube noted without any excoriation. EXTREMITIES: No edema, pulses are equal bilaterally. No cyanosis or clubbing. Procedures 07/19/16 EGD with PEG tube placement 09/27/16 colonoscopy Urinary Catheter: Yes Assessment to: Continue Kowalski insert reason: Obstruction/Retention Date of Insertion: Mar 30, 2017 Vascular Central Line Catheter: No A/P Assessment and Plan Neuro-Behcet, history of frontal lobe CVA, encephalopathy, history of meningitis , Blurred vision/double vision, urinary retention, chronic No new changes on imaging. Patient was followed by neurology. Aphasic at baseline. 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 03/30/17, --Decreased oral intake and dysphagia on initial presentation Speech therapy evaluated patient. S/P barium swallow. Patient with severe dysphagia. GI was consulted and PEG tube was placed. Patient was intolerant to bolus feeding Dietary reconsulted and made recommendations Coccyx decubitus. Ankle ulceration Wound care nurse is following the patient for management Patient with specialty bed Mood disorder, depression Psychiatry evaluated patient and made recommendations Prozac 40 mg daily Seroquel 25 mg at bedtime Diabetes Glucose continues to be well controlled, DVT Prophylaxis: Lovenox, TEDs/SCDs. Records reviewed, Case management discharge planning, no change in present treatment plan. Discharge Planning Case management for discharge planning, recent records indicate that planning on transferring back to [place], Ede Richardson Apr 08, 2017 07:40
[2017-04-08 08:20] VITALS: BP 107/79; PULSE 83; RESP 18; TEMP 97.8; O2SAT 97
[2017-04-08] MEDS: JUVEN POWDER 1 PACK G-TUBE SCH ×2 (09:11→21:00)
[2017-04-08] MEDS: ENOXAPARIN SODIUM 40 MG/0.4 ML SYRINGE SQ SCH (09:12)
[2017-04-08] MEDS: FLUoxetine HCL LIQUID 20 MG/5 ML CUP PEG SCH (09:12)
[2017-04-08] MEDS: predniSONE 20 MG TAB PEG SCH (09:13)
[2017-04-08] MEDS: SENNOSIDES SYRUP 8.8 MG/5 ML CUP PEG SCH (09:13)
[2017-04-08] MEDS: LANSOPRAZOLE SOLUTAB 30 MG TAB PEG SCH ×2 (09:13→21:00)
[2017-04-08] MEDS: LACTOBACILLUS ACIDOPHILUS TAB PEG SCH ×2 (09:13→21:00)
[2017-04-08] MEDS: LACTIC ACID (AMMONIUM LACTATE) 12% LOTION 225 GM BTL TOPICAL SCH ×2 (09:13→21:00)
[2017-04-08 20:00] VITALS: BP 120/92; PULSE 80; RESP 14; TEMP 97.8; O2SAT 95
[2017-04-08] MEDS: QUEtiapine FUMARATE 25 MG TAB PO SCH (21:01)
[2017-04-09] MEDS: azaTHIOprine 50 MG TAB PEG SCH ×2 (05:16→17:49)
[2017-04-09 09:00] VITALS: BP 114/75; PULSE 82; RESP 18; TEMP 97; O2SAT 97
[2017-04-09] MEDS: LANSOPRAZOLE SOLUTAB 30 MG TAB PEG SCH ×2 (09:04→21:25)
[2017-04-09] MEDS: FLUoxetine HCL LIQUID 20 MG/5 ML CUP PEG SCH (09:04)
[2017-04-09] MEDS: LACTOBACILLUS ACIDOPHILUS TAB PEG SCH ×2 (09:04→21:24)
[2017-04-09] MEDS: JUVEN POWDER 1 PACK G-TUBE SCH ×2 (09:04→21:24)
[2017-04-09] MEDS: predniSONE 20 MG TAB PEG SCH (09:04)
[2017-04-09] MEDS: SENNOSIDES SYRUP 8.8 MG/5 ML CUP PEG SCH (09:05)
[2017-04-09] MEDS: LACTIC ACID (AMMONIUM LACTATE) 12% LOTION 225 GM BTL TOPICAL SCH ×2 (09:05→21:25)
[2017-04-09] MEDS: ENOXAPARIN SODIUM 40 MG/0.4 ML SYRINGE SQ SCH (09:05)
--- NOTE | 2017-04-09 12:11 | HHI.PR ---
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 Patient denies any new complaints. No change in clinical status. Awaiting window caser discharge planning. Objective Vitals Vital Signs Date Time Temp Pulse Resp B/P (MAP) Pulse Ox O2 Delivery O2 Flow Rate FiO2 04/09/17 09:00 97.0 82 18 114/75 (88) 97 04/08/17 20:00 97.8 80 14 120/92 (101) 95 I/O 04/08/17 04/08/17 04/08/17 04/09/17 04/09/17 04/09/17 07:00 15:00 23:00 07:00 15:00 23:00 Intake Total 1480 ml 2290 ml 583 ml Output Total 550 ml 1700 ml Balance 930 ml 2290 ml 583 ml -1700 ml Intake Oral 0 ml Tube Feeding 600 ml 1850 ml 403 ml Tube Irrigant 400 ml 240 ml 180 ml Other 480 ml 200 ml Output Urine Total 550 ml 1700 ml # Bowel Movements 1 1 Objective Remarks GENERAL: Well-developed, cachectic and contracted. HEENT: Head is normocephalic without any lesions or masses noted. Facial features are symmetric. Eyes: Extraocular muscles are intact. Conjunctivae were clear. NECK: Trachea midline no deviation. CARDIAC: Regular rhythm, tachycardia noted. S1/S2 are heard. No murmurs gallops or rubs. LUNGS: Clear to auscultation bilaterally. No wheeze, rhonchi or rales. No use of accessory muscles on inspiration or expiration. ABDOMEN: Soft, nontender. Nondistended. Bowel sounds heard in all 4 quadrants. No organomegaly or masses. Negative rebound, negative guarding. PEG tube noted without any excoriation. EXTREMITIES: No edema, pulses are equal bilaterally. No cyanosis or clubbing. Procedures 07/19/16 EGD with PEG tube placement 09/27/16 colonoscopy Urinary Catheter: Yes Assessment to: Continue Kowalski insert reason: Obstruction/Retention Date of Insertion: Mar 30, 2017 Vascular Central Line Catheter: No A/P Assessment and Plan Neuro-Behcet, history of frontal lobe CVA, encephalopathy, history of meningitis , Blurred vision/double vision, urinary retention, chronic No new changes on imaging. Patient was followed by neurology. Aphasic at baseline. 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 03/30/17, --Decreased oral intake and dysphagia on initial presentation Speech therapy evaluated patient. S/P barium swallow. Patient with severe dysphagia. GI was consulted and PEG tube was placed. Patient was intolerant to bolus feeding Dietary reconsulted and made recommendations Coccyx decubitus. Ankle ulceration Wound care nurse is following the patient for management Patient with specialty bed Mood disorder, depression Psychiatry evaluated patient and made recommendations Prozac 40 mg daily Seroquel 25 mg at bedtime Diabetes Glucose continues to be well controlled, DVT Prophylaxis: Lovenox, TEDs/SCDs. Records reviewed, no change in present treatment plan. Case management discharge planning, Discharge Planning Case management for discharge planning, recent records indicate that planning on transferring back to [place], Ede Richardson Apr 09, 2017 12:10
[2017-04-09 20:00] VITALS: BP 106/85; PULSE 75; RESP 14; TEMP 97.9; O2SAT 94
[2017-04-09] MEDS: QUEtiapine FUMARATE 25 MG TAB PO SCH (21:25)
[2017-04-10] MEDS: azaTHIOprine 50 MG TAB PEG SCH ×2 (05:21→19:23)
[2017-04-10 08:00] VITALS: BP 123/76; PULSE 91; RESP 18; TEMP 98; O2SAT 95
--- NOTE | 2017-04-10 08:27 | HHI.PR ---
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 Patient states that his vision is more blurred today than usual. Objective Vitals Vital Signs Date Time Temp Pulse Resp B/P (MAP) Pulse Ox O2 Delivery O2 Flow Rate FiO2 04/09/17 20:00 97.9 75 14 106/85 (92) 94 04/09/17 09:00 97.0 82 18 114/75 (88) 97 I/O 04/09/17 04/09/17 04/09/17 04/10/17 04/10/17 04/10/17 06:59 14:59 22:59 06:59 14:59 22:59 Intake Total 583 ml 200 ml 1313 ml Output Total 1700 ml 350 ml Balance 583 ml -1700 ml -150 ml 1313 ml Tube Feeding 403 ml 563 ml Tube Irrigant 180 ml 750 ml Other 200 ml Output Urine Total 1700 ml 350 ml Objective Remarks GENERAL: Well-developed, cachectic and contracted. HEENT: Head is normocephalic without any lesions or masses noted. Facial features are symmetric. Eyes: Extraocular muscles are intact. Conjunctivae were clear. NECK: Trachea midline no deviation. CARDIAC: Regular rhythm, tachycardia noted. S1/S2 are heard. No murmurs gallops or rubs. LUNGS: Clear to auscultation bilaterally. No wheeze, rhonchi or rales. No use of accessory muscles on inspiration or expiration. ABDOMEN: Soft, nontender. Nondistended. Bowel sounds heard in all 4 quadrants. No organomegaly or masses. Negative rebound, negative guarding. PEG tube noted without any excoriation. EXTREMITIES: No edema, pulses are equal bilaterally. No cyanosis or clubbing. Procedures 07/19/16 EGD with PEG tube placement 09/27/16 colonoscopy Urinary Catheter: Yes Assessment to: Continue Kowalski insert reason: Obstruction/Retention Date of Insertion: Mar 30, 2017 Vascular Central Line Catheter: No A/P Assessment and Plan Neuro-Behcet, history of frontal lobe CVA, encephalopathy, history of meningitis , Blurred vision/double vision, urinary retention, chronic No new changes on imaging. Patient was followed by neurology. Aphasic at baseline. 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 03/30/17, --Decreased oral intake and dysphagia on initial presentation Speech therapy evaluated patient. S/P barium swallow. Patient with severe dysphagia. GI was consulted and PEG tube was placed. Patient was intolerant to bolus feeding Dietary reconsulted and made recommendations Coccyx decubitus. Ankle ulceration Wound care nurse is following the patient for management Patient with specialty bed Mood disorder, depression Psychiatry evaluated patient and made recommendations Prozac 40 mg daily Seroquel 25 mg at bedtime Diabetes Glucose continues to be well controlled, DVT Prophylaxis: Lovenox, TEDs/SCDs. Records reviewed, Case management discharge planning, no change in present treatment plan. Discharge Planning Case management for discharge planning, recent records indicate that planning on transferring back to [place], Ede Richardson Apr 10, 2017 08:27
[2017-04-10] MEDS: FLUoxetine HCL LIQUID 20 MG/5 ML CUP PEG SCH (10:28)
[2017-04-10] MEDS: LACTOBACILLUS ACIDOPHILUS TAB PEG SCH ×2 (10:29→20:11)
[2017-04-10] MEDS: LANSOPRAZOLE SOLUTAB 30 MG TAB PEG SCH ×2 (10:29→20:11)
[2017-04-10] MEDS: predniSONE 20 MG TAB PEG SCH (10:29)
[2017-04-10] MEDS: SENNOSIDES SYRUP 8.8 MG/5 ML CUP PEG SCH (10:30)
[2017-04-10] MEDS: ENOXAPARIN SODIUM 40 MG/0.4 ML SYRINGE SQ SCH (10:30)
[2017-04-10] MEDS: JUVEN POWDER 1 PACK G-TUBE SCH ×2 (10:31→20:12)
[2017-04-10] MEDS: ARTIFICIAL TEARS OPTH SOLN 15 ML BTL EACH EYE PRN (10:31)
[2017-04-10] MEDS: LACTIC ACID (AMMONIUM LACTATE) 12% LOTION 225 GM BTL TOPICAL SCH ×2 (10:32→20:12)
[2017-04-10 20:00] VITALS: BP 114/77; PULSE 89; RESP 18; TEMP 98.4; O2SAT 95
[2017-04-10] MEDS: QUEtiapine FUMARATE 25 MG TAB PO SCH (20:11)
[2017-04-11] MEDS: azaTHIOprine 50 MG TAB PEG SCH ×2 (05:50→18:59)
[2017-04-11 08:00] VITALS: BP 119/119; PULSE 87; RESP 18; TEMP 98; O2SAT 96
[2017-04-11] MEDS: JUVEN POWDER 1 PACK G-TUBE SCH ×2 (09:00→21:03)
--- NOTE | 2017-04-11 10:10 | HHI.PR ---
Subjective Remarks Follow-up for neuro Behcet's syndrome. Denies sob. No acute complaints. Objective Vitals Vital Signs Date Time Temp Pulse Resp B/P (MAP) Pulse Ox O2 Delivery O2 Flow Rate FiO2 04/11/17 08:00 98.0 87 18 119/119 (119) 96 04/10/17 20:00 98.4 89 18 114/77 (89) 95 I/O 04/10/17 04/10/17 04/10/17 04/11/17 04/11/17 04/11/17 07:00 15:00 23:00 07:00 15:00 23:00 Intake Total 1313 ml 480 ml 0 ml Output Total 700 ml 400 ml Balance 1313 ml -220 ml -400 ml Intake Oral 0 ml 0 ml Oral Supplement 480 ml Tube Feeding 563 ml Tube Irrigant 750 ml Output Urine Total 700 ml 400 ml # Bowel Movements 0 0 Objective Remarks GENERAL: Thin patient in no apparent distress. CARDIOVASCULAR: Regular rate and rhythm. RESPIRATORY: Transmitted grunting upper respiratory sounds. GASTROINTESTINAL: Abdomen soft, non-tender, nondistended. NEUROLOGICAL: Awake and alert. Nods head to answer questions. PSYCHIATRIC: Stable mood and affect. 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 (3) Sepsis ICD Code: A41.9 - Sepsis, unspecified organism Status: Resolved (4) Encephalopathy ICD Code: G93.40 - Encephalopathy, unspecified Status: Resolved (5) GI bleed ICD Code: K92.2 - Gastrointestinal hemorrhage, unspecified Status: Resolved (6) HCAP (healthcare-associated pneumonia) ICD Code: J18.9 - Pneumonia, unspecified organism Status: Resolved (7) UTI (urinary tract infection) ICD Code: N39.0 - Urinary tract infection, site not specified Status: Resolved (8) Leucocytosis ICD Code: D72.829 - Elevated white blood cell count, unspecified Status: Resolved (9) Fever ICD Code: R50.9 - Fever, unspecified Status: Resolved (10) Effusion of hip joint ICD Code: M25.459 - Effusion, unspecified hip Status: Acute (11) 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 Could be related to prednisone use. May be more likely related to Behcet's syndrome as patient has had leukocytosis without infection in the past. -03/18: WBC 13.3-->12.7. Remains afebrile. Good oxygen saturation. No further workup necessary at this time. -Monitor CBC periodically Prerenal azotemia: Improved. S/p IVF 03/17: BUN 20. Monitor periodically. Hypotension: Improved Neuro Behet's, history of frontal lobe CVA, encephalopathy, history of meningitis, chronic No new changes on imaging. Patient followed by neurology. Aphasic at baseline. Neurology following the patient Continue Imuran, prednisone EEG shows mild to moderate slowing at times of various depending on the epoch, there was no epileptic activity seen Continue PT/OT Palliative care following the patient and is still indicating the patient is making his own decisions, full code and full aggressive measures [place] discontinued on 03/17 Blurred vision/Diplopia: Related to his neuro Behet's syndrome. -Ophthalmology evaluated patient on 01/11/17. 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 Recommends immunosuppressants and steroids which patient is currently on. Hospital acquired pneumonia: Stable -S/p Levaquin 750 mg x 7 days -Continue suctioning q6h/ prn. -Continue Levsin. -Continue Duonebs as needed Urinary retention: Stable. 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 -Monitor intake and output. -Patient will need to keep Kowalski in place as he is non-ambulatory. Change monthly; last changed 03/30/17. Diabetes: Stable HbA1c 6.6 on 09/25/16. Accu-checks and SSI were discontinued. SIRS/Sepsis, multiple episodes: Resolved. Coccyx decubitus wound: Wound culture with pseudo fluorescens/putida, group D enterococcus VRE which is sensitive to Zosyn. Patient did have one urine culture of Daphney parapsilosis, was treated with fluconazole for 10 days. Patient had episode of diarrhea, C. difficile cultures performed which was negative. Infectious disease consulted and last seen the patient on 10/18/16, at that time it was indicated to observe off antibiotics. 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 Would benefit from long-term steroids. Most recently treated for possible HAP on 02/05. Sinus tachycardia: Stable. S/p Lopressor TSH, free T3, free T4 were normal Melena, bright red blood in stool: Resolved Status post transfusion, emergently transferred to [facility], emergent endoscopy GI evaluated and managed patient with emergent colonoscopy showing small ulcer in the colon Continue Prevacid Hemoglobin stable Hypernatremia and hyperchloremia: Resolved. Continue free water flushes 200 cc every 4 hours Hypokalemia with mild hypomagnesemia: Improved s/p repletion. Decreased oral intake and dysphagia on initial presentation Speech therapy following intermittently. S/P barium swallow. Patient with severe dysphagia. GI consulted and PEG tube was placed. [employer] following. Due to vomiting tube feeding changed to low volume TwoCal HN, goal rate 50ml/hr. Free Water Flushes and additional free water flush with Maury bid. Coccyx decubitus: Wound care nurse is following. Follow recommendations. Specialty bed Ankle ulcer: R lateral malleolus. -Foam boots. -Wound care nurse following. Follow recommendations. Depression: Patient was evaluated by psychiatrist. Continue Prozac 40 mg daily and Seroquel 25 mg HS. Constipation: Improved. Continue scheduled Senna and Miralax prn. DVT Prophylaxis: Lovenox, TEDs/SCDs. Discharge Planning 01/27: print traffic manager called [facility] following up on assistance plan to transfer patient there, awaiting return call. 02/10: CM still awaiting call back. Problem Qualifiers (1) GI bleed: (2) UTI (urinary tract infection): (3) Effusion of hip joint: Mari Talamantes Apr 11, 2017 10:10
[2017-04-11] MEDS: SENNOSIDES SYRUP 8.8 MG/5 ML CUP PEG SCH (10:59)
[2017-04-11] MEDS: predniSONE 20 MG TAB PEG SCH (10:59)
[2017-04-11] MEDS: FLUoxetine HCL LIQUID 20 MG/5 ML CUP PEG SCH (11:00)
[2017-04-11] MEDS: LANSOPRAZOLE SOLUTAB 30 MG TAB PEG SCH ×2 (11:01→21:02)
[2017-04-11] MEDS: ARTIFICIAL TEARS OPTH SOLN 15 ML BTL EACH EYE PRN (11:01)
[2017-04-11] MEDS: LACTOBACILLUS ACIDOPHILUS TAB PEG SCH ×2 (11:01→21:02)
[2017-04-11] MEDS: ENOXAPARIN SODIUM 40 MG/0.4 ML SYRINGE SQ SCH (11:02)
[2017-04-11] MEDS: LACTIC ACID (AMMONIUM LACTATE) 12% LOTION 225 GM BTL TOPICAL SCH ×2 (11:02→21:03)
[2017-04-11 20:00] VITALS: BP 121/85; PULSE 86; RESP 20; TEMP 97.1; O2SAT 94
[2017-04-11] MEDS: QUEtiapine FUMARATE 25 MG TAB PO SCH (21:00)
[2017-04-12] MEDS: azaTHIOprine 50 MG TAB PEG SCH ×2 (05:40→18:00)
[2017-04-12 08:00] VITALS: BP 117/76; PULSE 95; RESP 20; TEMP 98.5; O2SAT 99
[2017-04-12] MEDS: LACTOBACILLUS ACIDOPHILUS TAB PEG SCH ×2 (08:57→20:39)
[2017-04-12] MEDS: ENOXAPARIN SODIUM 40 MG/0.4 ML SYRINGE SQ SCH (08:57)
[2017-04-12] MEDS: FLUoxetine HCL LIQUID 20 MG/5 ML CUP PEG SCH (08:57)
[2017-04-12] MEDS: SENNOSIDES SYRUP 8.8 MG/5 ML CUP PEG SCH (08:57)
[2017-04-12] MEDS: predniSONE 20 MG TAB PEG SCH (08:57)
[2017-04-12] MEDS: LANSOPRAZOLE SOLUTAB 30 MG TAB PEG SCH ×2 (08:57→20:39)
[2017-04-12] MEDS: LACTIC ACID (AMMONIUM LACTATE) 12% LOTION 225 GM BTL TOPICAL SCH ×2 (08:58→20:40)
[2017-04-12] MEDS: JUVEN POWDER 1 PACK G-TUBE SCH ×2 (09:00→20:40)
--- NOTE | 2017-04-12 13:25 | HHI.PR ---
Subjective Remarks Follow-up for neuro-Behcet's syndrome. Denies shortness of breath. Objective Vitals Vital Signs Date Time Temp Pulse Resp B/P (MAP) Pulse Ox O2 Delivery O2 Flow Rate FiO2 04/12/17 08:00 98.5 95 20 117/76 (90) 99 04/11/17 20:00 97.1 86 20 121/85 (97) 94 I/O 04/11/17 04/11/17 04/11/17 04/12/17 04/12/17 04/12/17 07:00 15:00 23:00 07:00 15:00 23:00 Intake Total 0 ml 1332 ml 840 ml Output Total 400 ml 400 ml 600 ml Balance -400 ml 932 ml 240 ml Intake Oral 0 ml Tube Feeding 932 ml 600 ml Other 400 ml 240 ml Output Urine Total 400 ml 400 ml 600 ml # Bowel Movements 0 1 Objective Remarks GENERAL: Thin patient in no apparent distress. CARDIOVASCULAR: Regular rate and rhythm. RESPIRATORY: Transmitted grunting respiratory sounds. GASTROINTESTINAL: Abdomen soft, non-tender, nondistended. NEUROLOGICAL: Awake and alert. Nods head to answer questions. PSYCHIATRIC: Stable mood and affect. 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 (3) Sepsis ICD Code: A41.9 - Sepsis, unspecified organism Status: Resolved (4) Encephalopathy ICD Code: G93.40 - Encephalopathy, unspecified Status: Resolved (5) GI bleed ICD Code: K92.2 - Gastrointestinal hemorrhage, unspecified Status: Resolved (6) HCAP (healthcare-associated pneumonia) ICD Code: J18.9 - Pneumonia, unspecified organism Status: Resolved (7) UTI (urinary tract infection) ICD Code: N39.0 - Urinary tract infection, site not specified Status: Resolved (8) Leucocytosis ICD Code: D72.829 - Elevated white blood cell count, unspecified Status: Resolved (9) Fever ICD Code: R50.9 - Fever, unspecified Status: Resolved (10) Effusion of hip joint ICD Code: M25.459 - Effusion, unspecified hip Status: Acute (11) 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 Patient followed by neurology. Aphasic at baseline. Neurology following the patient Continue Imuran, prednisone EEG shows mild to moderate slowing at times of various depending on the epoch, there was no epileptic activity seen Continue PT/OT Palliative care following the patient and is still indicating the patient is making his own decisions, full code and full aggressive measures [place] discontinued on 03/17 Blurred vision/Diplopia: Related to his neuro Behet's syndrome. -Ophthalmology evaluated patient on 01/11/17. 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 Recommends immunosuppressants and steroids which patient is currently on. Hospital acquired pneumonia: Stable -S/p Levaquin 750 mg x 7 days -Continue suctioning q6h/ prn. -Continue Levsin. -Continue Duonebs as needed Urinary retention: Stable. 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 -Monitor intake and output. -Patient will need to keep Kowalski in place as he is non-ambulatory. Change monthly; last changed 03/30/17. Leukocytosis: Improving. Could be related to prednisone use. May be more likely related to Behcet's syndrome as patient has had leukocytosis without infection in the past. -03/18: WBC 13.3-->12.7. Remains afebrile. Good oxygen saturation. No further workup necessary at this time. -Monitor CBC periodically Prerenal azotemia: Improved. S/p IVF 03/17: BUN 20. Monitor periodically. Hypotension: Improved Diabetes: Stable HbA1c 6.6 on 09/25/16. Accu-checks and SSI were discontinued. SIRS/Sepsis, multiple episodes: Resolved. Coccyx decubitus wound: Wound culture with pseudo fluorescens/putida, group D enterococcus VRE which is sensitive to Zosyn. Patient did have one urine culture of Daphney parapsilosis, was treated with fluconazole for 10 days. Patient had episode of diarrhea, C. difficile cultures performed which was negative. Infectious disease consulted and last seen the patient on 10/18/16, at that time it was indicated to observe off antibiotics. 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 Would benefit from long-term steroids. Most recently treated for possible HAP on 02/05. Sinus tachycardia: Stable. S/p Lopressor TSH, free T3, free T4 were normal Melena, bright red blood in stool: Resolved Status post transfusion, emergently transferred to [facility], emergent endoscopy GI evaluated and managed patient with emergent colonoscopy showing small ulcer in the colon Continue Prevacid Hemoglobin stable Hypernatremia and hyperchloremia: Resolved. Continue free water flushes 200 cc every 4 hours Hypokalemia with mild hypomagnesemia: Improved s/p repletion. Decreased oral intake and dysphagia on initial presentation Speech therapy following intermittently. S/P barium swallow. Patient with severe dysphagia. GI consulted and PEG tube was placed. [employer] following. Due to vomiting tube feeding changed to low volume TwoCal HN, goal rate 50ml/hr. Free Water Flushes and additional free water flush with Maury bid. Coccyx decubitus: Wound care nurse is following. Follow recommendations. Specialty bed Ankle ulcer: R lateral malleolus. -Foam boots. -Wound care nurse following. Follow recommendations. Depression: Patient was evaluated by psychiatrist. Continue Prozac 40 mg daily and Seroquel 25 mg HS. Constipation: Improved. Continue scheduled Senna and Miralax prn. DVT Prophylaxis: Lovenox, TEDs/SCDs. Discharge Planning 01/27: retail area manager called [facility] following up on assistance plan to transfer patient there, awaiting return call. 02/10: CM still awaiting call back. Problem Qualifiers (1) GI bleed: (2) UTI (urinary tract infection): (3) Effusion of hip joint: Mari Talamantes Apr 12, 2017 13:24
[2017-04-12 20:00] VITALS: BP 136/87; PULSE 83; RESP 23; TEMP 95.5; O2SAT 100
[2017-04-12] MEDS: HYOSCYAMINE SOLN 0.125 MG/ML 15 ML BTL PEG PRN (20:38)
[2017-04-12] MEDS: QUEtiapine FUMARATE 25 MG TAB PO SCH (20:39)
[2017-04-13] MEDS: azaTHIOprine 50 MG TAB PEG SCH ×2 (06:29→17:32)
[2017-04-13 07:50] VITALS: BP 112/74; PULSE 91; RESP 20; TEMP 97.8; O2SAT 98
[2017-04-13] MEDS: FLUoxetine HCL LIQUID 20 MG/5 ML CUP PEG SCH (08:04)
[2017-04-13] MEDS: LACTOBACILLUS ACIDOPHILUS TAB PEG SCH ×2 (08:05→21:52)
[2017-04-13] MEDS: JUVEN POWDER 1 PACK G-TUBE SCH ×2 (08:05→21:53)
[2017-04-13] MEDS: SENNOSIDES SYRUP 8.8 MG/5 ML CUP PEG SCH (08:05)
[2017-04-13] MEDS: LACTIC ACID (AMMONIUM LACTATE) 12% LOTION 225 GM BTL TOPICAL SCH ×2 (08:05→21:58)
[2017-04-13] MEDS: predniSONE 20 MG TAB PEG SCH (08:05)
[2017-04-13] MEDS: LANSOPRAZOLE SOLUTAB 30 MG TAB PEG SCH ×2 (08:05→21:53)
[2017-04-13] MEDS: ENOXAPARIN SODIUM 40 MG/0.4 ML SYRINGE SQ SCH (08:05)
--- NOTE | 2017-04-13 11:39 | HHI.PR ---
Subjective Remarks Follow-up for neuro Behet's syndrome. Patient denies any pain. Denies any shortness of breath. Objective Vitals Vital Signs Date Time Temp Pulse Resp B/P (MAP) Pulse Ox O2 Delivery O2 Flow Rate FiO2 04/13/17 07:50 97.8 91 20 112/74 (87) 98 04/12/17 20:00 95.5 83 23 136/87 (103) 100 I/O 04/12/17 04/12/17 04/12/17 04/13/17 04/13/17 04/13/17 07:00 15:00 23:00 07:00 15:00 23:00 Intake Total 840 ml 0 ml Output Total 600 ml 500 ml 550 ml Balance 240 ml -500 ml -550 ml Intake Oral 0 ml Tube Feeding 600 ml Other 240 ml Output Urine Total 600 ml 500 ml 550 ml # Bowel Movements 1 1 0 Objective Remarks GENERAL: Thin patient in no apparent distress. CARDIOVASCULAR: Regular rate and rhythm. RESPIRATORY: Transmitted grunting respiratory sounds. GASTROINTESTINAL: Abdomen soft, non-tender, nondistended. NEUROLOGICAL: Awake and alert. Nods head to answer questions. PSYCHIATRIC: Stable mood and affect. 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 (3) Sepsis ICD Code: A41.9 - Sepsis, unspecified organism Status: Resolved (4) Encephalopathy ICD Code: G93.40 - Encephalopathy, unspecified Status: Resolved (5) GI bleed ICD Code: K92.2 - Gastrointestinal hemorrhage, unspecified Status: Resolved (6) HCAP (healthcare-associated pneumonia) ICD Code: J18.9 - Pneumonia, unspecified organism Status: Resolved (7) UTI (urinary tract infection) ICD Code: N39.0 - Urinary tract infection, site not specified Status: Resolved (8) Leucocytosis ICD Code: D72.829 - Elevated white blood cell count, unspecified Status: Resolved (9) Fever ICD Code: R50.9 - Fever, unspecified Status: Resolved (10) Effusion of hip joint ICD Code: M25.459 - Effusion, unspecified hip Status: Acute (11) 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 Patient followed by neurology. Aphasic at baseline. Neurology following the patient Continue Imuran, prednisone EEG shows mild to moderate slowing at times of various depending on the epoch, there was no epileptic activity seen Continue PT/OT Palliative care following the patient and is still indicating the patient is making his own decisions, full code and full aggressive measures [place] discontinued on 03/17 Blurred vision/Diplopia: Related to his neuro Behet's syndrome. -Ophthalmology evaluated patient on 01/11/17. 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 Recommends immunosuppressants and steroids which patient is currently on. Hospital acquired pneumonia: Stable -S/p Levaquin 750 mg x 7 days -Continue suctioning q6h/ prn. -Continue Levsin. -Continue Duonebs as needed Urinary retention: Stable. 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 -Monitor intake and output. -Patient will need to keep Kowalski in place as he is non-ambulatory. Change monthly; last changed 03/30/17. Leukocytosis: Improving. Could be related to prednisone use. May be more likely related to Behcet's syndrome as patient has had leukocytosis without infection in the past. -03/18: WBC 13.3-->12.7. Remains afebrile. Good oxygen saturation. No further workup necessary at this time. -Monitor CBC periodically Prerenal azotemia: Improved. S/p IVF 03/17: BUN 20. Monitor periodically. Hypotension: Improved Diabetes: Stable HbA1c 6.6 on 09/25/16. Accu-checks and SSI were discontinued. SIRS/Sepsis, multiple episodes: Resolved. Coccyx decubitus wound: Wound culture with pseudo fluorescens/putida, group D enterococcus VRE which is sensitive to Zosyn. Patient did have one urine culture of Daphney parapsilosis, was treated with fluconazole for 10 days. Patient had episode of diarrhea, C. difficile cultures performed which was negative. Infectious disease consulted and last seen the patient on 10/18/16, at that time it was indicated to observe off antibiotics. 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 Would benefit from long-term steroids. Most recently treated for possible HAP on 02/05. Sinus tachycardia: Stable. S/p Lopressor TSH, free T3, free T4 were normal Melena, bright red blood in stool: Resolved Status post transfusion, emergently transferred to [facility] hospital, emergent endoscopy GI evaluated and managed patient with emergent colonoscopy showing small ulcer in the colon Continue Prevacid Hemoglobin stable Hypernatremia and hyperchloremia: Resolved. Continue free water flushes 200 cc every 4 hours Hypokalemia with mild hypomagnesemia: Improved s/p repletion. Decreased oral intake and dysphagia on initial presentation Speech therapy following intermittently. S/P barium swallow. Patient with severe dysphagia. GI consulted and PEG tube was placed. [place] following. Due to vomiting tube feeding changed to low volume TwoCal HN, goal rate 50ml/hr. Free Water Flushes and additional free water flush with Maury bid. Coccyx decubitus: Wound care nurse is following. Follow recommendations. Specialty bed Ankle ulcer: R lateral malleolus. -Foam boots. -Wound care nurse following. Follow recommendations. Depression: Patient was evaluated by psychiatrist. Continue Prozac 40 mg daily and Seroquel 25 mg HS. Constipation: Improved. Continue scheduled Senna and Miralax prn. DVT Prophylaxis: Lovenox, TEDs/SCDs. Discharge Planning 01/27: district manager called [facility] following up on assistance plan to transfer patient there, awaiting return call. 02/10: CM still awaiting call back. Problem Qualifiers (1) GI bleed: (2) UTI (urinary tract infection): (3) Effusion of hip joint: Mari Talamantes Apr 13, 2017 11:39
[2017-04-13 14:07] VITALS: O2SAT 94
[2017-04-13 20:00] VITALS: BP 115/91; PULSE 74; RESP 20; TEMP 96.8; O2SAT 99
[2017-04-13] MEDS: QUEtiapine FUMARATE 25 MG TAB PO SCH (21:53)
[2017-04-14] MEDS: azaTHIOprine 50 MG TAB PEG SCH ×2 (06:18→18:00)
[2017-04-14 08:00] VITALS: BP 114/75; PULSE 102; RESP 22; TEMP 98.9; O2SAT 94
[2017-04-14] MEDS: JUVEN POWDER 1 PACK G-TUBE SCH ×2 (08:29→21:47)
[2017-04-14] MEDS: ENOXAPARIN SODIUM 40 MG/0.4 ML SYRINGE SQ SCH (08:29)
[2017-04-14] MEDS: FLUoxetine HCL LIQUID 20 MG/5 ML CUP PEG SCH (08:29)
[2017-04-14] MEDS: LACTOBACILLUS ACIDOPHILUS TAB PEG SCH ×2 (08:29→21:47)
[2017-04-14] MEDS: SENNOSIDES SYRUP 8.8 MG/5 ML CUP PEG SCH (08:29)
[2017-04-14] MEDS: LANSOPRAZOLE SOLUTAB 30 MG TAB PEG SCH ×2 (08:29→21:47)
[2017-04-14] MEDS: predniSONE 20 MG TAB PEG SCH (08:29)
[2017-04-14] MEDS: LACTIC ACID (AMMONIUM LACTATE) 12% LOTION 225 GM BTL TOPICAL SCH ×2 (08:30→21:47)
--- NOTE | 2017-04-14 08:40 | HHI.PR ---
Subjective Remarks Follow-up for neuro Behet's syndrome. Denies any shortness of breath. Patient denies any pain. Objective Vitals Vital Signs Date Time Temp Pulse Resp B/P (MAP) Pulse Ox O2 Delivery O2 Flow Rate FiO2 04/14/17 08:00 98.9 102 22 114/75 (88) 94 04/13/17 20:00 96.8 74 20 115/91 (99) 99 04/13/17 14:07 94 I/O 04/13/17 04/13/17 04/13/17 04/14/17 04/14/17 04/14/17 07:00 15:00 23:00 07:00 15:00 23:00 Intake Total 0 ml 0 ml Output Total 550 ml 650 ml 200 ml Balance -550 ml -650 ml -200 ml Intake Oral 0 ml 0 ml Output Urine Total 550 ml 650 ml 200 ml # Bowel Movements 0 0 1 Objective Remarks GENERAL: Thin patient in no apparent distress. CARDIOVASCULAR: Tachycardic rate and regular rhythm. RESPIRATORY: Transmitted grunting respiratory sounds. GASTROINTESTINAL: Abdomen soft, non-tender, nondistended. NEUROLOGICAL: Awake and alert. Nods head to answer questions. PSYCHIATRIC: Stable mood and affect. 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 (3) Sepsis ICD Code: A41.9 - Sepsis, unspecified organism Status: Resolved (4) Encephalopathy ICD Code: G93.40 - Encephalopathy, unspecified Status: Resolved (5) GI bleed ICD Code: K92.2 - Gastrointestinal hemorrhage, unspecified Status: Resolved (6) HCAP (healthcare-associated pneumonia) ICD Code: J18.9 - Pneumonia, unspecified organism Status: Resolved (7) UTI (urinary tract infection) ICD Code: N39.0 - Urinary tract infection, site not specified Status: Resolved (8) Leucocytosis ICD Code: D72.829 - Elevated white blood cell count, unspecified Status: Resolved (9) Fever ICD Code: R50.9 - Fever, unspecified Status: Resolved (10) Effusion of hip joint ICD Code: M25.459 - Effusion, unspecified hip Status: Acute (11) 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 Patient followed by neurology. Aphasic at baseline. Neurology following the patient Continue Imuran, prednisone EEG shows mild to moderate slowing at times of various depending on the epoch, there was no epileptic activity seen Continue PT/OT Palliative care following the patient and is still indicating the patient is making his own decisions, full code and full aggressive measures [place] discontinued on 03/17 Blurred vision/Diplopia: Related to his neuro Behet's syndrome. -Ophthalmology evaluated patient on 01/11/17. 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 Recommends immunosuppressants and steroids which patient is currently on. Hospital acquired pneumonia: Stable -S/p Levaquin 750 mg x 7 days -Continue suctioning q6h/ prn. -Continue Levsin. -Continue Duonebs as needed Urinary retention: Stable. 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 -Monitor intake and output. -Patient will need to keep Kowalski in place as he is non-ambulatory. Change monthly; last changed 03/30/17. Leukocytosis: Improving. Could be related to prednisone use. May be more likely related to Behcet's syndrome as patient has had leukocytosis without infection in the past. -03/18: WBC 13.3-->12.7. Remains afebrile. Good oxygen saturation. No further workup necessary at this time. -Monitor CBC periodically Prerenal azotemia: Improved. S/p IVF 03/17: BUN 20. Monitor periodically. Hypotension: Improved Diabetes: Stable HbA1c 6.6 on 09/25/16. Accu-checks and SSI were discontinued. SIRS/Sepsis, multiple episodes: Resolved. Coccyx decubitus wound: Wound culture with pseudo fluorescens/putida, group D enterococcus VRE which is sensitive to Zosyn. Patient did have one urine culture of Daphney parapsilosis, was treated with fluconazole for 10 days. Patient had episode of diarrhea, C. difficile cultures performed which was negative. Infectious disease consulted and last seen the patient on 10/18/16, at that time it was indicated to observe off antibiotics. 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 Would benefit from long-term steroids. Most recently treated for possible HAP on 02/05. Sinus tachycardia: Stable. S/p Lopressor TSH, free T3, free T4 were normal Melena, bright red blood in stool: Resolved Status post transfusion, emergently transferred [facility], emergent endoscopy GI evaluated and managed patient with emergent colonoscopy showing small ulcer in the colon Continue Prevacid Hemoglobin stable Hypernatremia and hyperchloremia: Resolved. Continue free water flushes 200 cc every 4 hours Hypokalemia with mild hypomagnesemia: Improved s/p repletion. Decreased oral intake and dysphagia on initial presentation Speech therapy following intermittently. S/P barium swallow. Patient with severe dysphagia. GI consulted and PEG tube was placed. Bilingual Spanish [employer] following. Due to vomiting tube feeding changed to low volume TwoCal HN, goal rate 50ml/hr. Free Water Flushes and additional free water flush with Maury bid. Coccyx decubitus: Wound care nurse is following. Follow recommendations. Specialty bed Ankle ulcer: R lateral malleolus. -Foam boots. -Wound care nurse following. Follow recommendations. Depression: Patient was evaluated by psychiatrist. Continue Prozac 40 mg daily and Seroquel 25 mg HS. Constipation: Improved. Continue scheduled Senna and Miralax prn. DVT Prophylaxis: Lovenox, TEDs/SCDs. Discharge Planning Plan is to send patient back to [place] to be cared for by mother. 04/14/17: I spoke with Gustavo Louis, behavioral health case manager, today. He states he is awaiting to hear back from legal regarding finances for patient as most of his income goes to child support and does not leave enough funds to coordinate care patient will need for discharge. Problem Qualifiers (1) GI bleed: (2) UTI (urinary tract infection): (3) Effusion of hip joint: Mari Talamantes Apr 14, 2017 08:40
[2017-04-14 20:29] VITALS: BP 117/67; PULSE 89; RESP 16; TEMP 98; O2SAT 93
[2017-04-14] MEDS: QUEtiapine FUMARATE 25 MG TAB PO SCH (21:48)
[2017-04-15] MEDS: azaTHIOprine 50 MG TAB PEG SCH ×2 (05:58→18:04)
[2017-04-15 08:00] VITALS: BP 98/84; PULSE 99; RESP 14; TEMP 98.2; O2SAT 97
[2017-04-15] MEDS: FLUoxetine HCL LIQUID 20 MG/5 ML CUP PEG SCH (09:48)
[2017-04-15] MEDS: JUVEN POWDER 1 PACK G-TUBE SCH ×2 (09:48→21:00)
[2017-04-15] MEDS: LACTIC ACID (AMMONIUM LACTATE) 12% LOTION 225 GM BTL TOPICAL SCH ×2 (09:49→21:58)
[2017-04-15] MEDS: SENNOSIDES SYRUP 8.8 MG/5 ML CUP PEG SCH (09:49)
[2017-04-15] MEDS: LACTOBACILLUS ACIDOPHILUS TAB PEG SCH ×2 (09:49→21:58)
[2017-04-15] MEDS: LANSOPRAZOLE SOLUTAB 30 MG TAB PEG SCH ×2 (09:49→21:58)
[2017-04-15] MEDS: predniSONE 20 MG TAB PEG SCH (09:49)
[2017-04-15] MEDS: ENOXAPARIN SODIUM 40 MG/0.4 ML SYRINGE SQ SCH (09:49)
--- NOTE | 2017-04-15 12:13 | HHI.PR ---
Subjective Remarks Follow-up for neuro Behet's syndrome. Denies any shortness of breath. Patient denies any pain. Objective Vitals Vital Signs Date Time Temp Pulse Resp B/P (MAP) Pulse Ox O2 Delivery O2 Flow Rate FiO2 04/15/17 08:00 98.2 99 14 98/84 (89) 97 04/14/17 20:29 98.0 89 16 117/67 (84) 93 I/O 04/14/17 04/14/17 04/14/17 04/15/17 04/15/17 04/15/17 07:00 15:00 23:00 07:00 15:00 23:00 Intake Total 0 ml Output Total 200 ml 575 ml 500 ml Balance -200 ml -575 ml -500 ml Intake Oral 0 ml Output Urine Total 200 ml 575 ml 500 ml # Bowel Movements 1 0 0 Objective Remarks GENERAL: Thin patient in no apparent distress. CARDIOVASCULAR: Tachycardic rate and regular rhythm. RESPIRATORY: Snorting upper respiratory sounds. GASTROINTESTINAL: Abdomen soft, non-tender, nondistended. NEUROLOGICAL: Awake and alert. Nods head to answer questions. 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 (3) Sepsis ICD Code: A41.9 - Sepsis, unspecified organism Status: Resolved (4) Encephalopathy ICD Code: G93.40 - Encephalopathy, unspecified Status: Resolved (5) GI bleed ICD Code: K92.2 - Gastrointestinal hemorrhage, unspecified Status: Resolved (6) HCAP (healthcare-associated pneumonia) ICD Code: J18.9 - Pneumonia, unspecified organism Status: Resolved (7) UTI (urinary tract infection) ICD Code: N39.0 - Urinary tract infection, site not specified Status: Resolved (8) Leucocytosis ICD Code: D72.829 - Elevated white blood cell count, unspecified Status: Resolved (9) Fever ICD Code: R50.9 - Fever, unspecified Status: Resolved (10) Effusion of hip joint ICD Code: M25.459 - Effusion, unspecified hip Status: Acute (11) 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 Patient followed by neurology. Aphasic at baseline. Neurology following the patient Continue Imuran, prednisone EEG shows mild to moderate slowing at times of various depending on the epoch, there was no epileptic activity seen Continue PT/OT Palliative care following the patient and is still indicating the patient is making his own decisions, full code and full aggressive measures [place] discontinued on 03/17 Blurred vision/Diplopia: Related to his neuro Behet's syndrome. -Ophthalmology evaluated patient on 01/11/17. 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 Recommends immunosuppressants and steroids which patient is currently on. Hospital acquired pneumonia: Stable -S/p Levaquin 750 mg x 7 days -Continue suctioning q6h/ prn. -Continue Levsin. -Continue Duonebs as needed -04/15: O2 saturation 97%. Urinary retention: Stable. 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 -Monitor intake and output. -Patient will need to keep Kowalski in place as he is non-ambulatory. Change monthly; last changed 03/30/17. Leukocytosis: Improving. Could be related to prednisone use. May be more likely related to Behcet's syndrome as patient has had leukocytosis without infection in the past. -03/18: WBC 13.3-->12.7. Remains afebrile. Good oxygen saturation. No further workup necessary at this time. -Monitor CBC periodically Prerenal azotemia: Improved. S/p IVF 03/17: BUN 20. Monitor periodically. Hypotension: -04/15: Again hypotensive this morning, but MAP intact. Monitor. Diabetes: Stable HbA1c 6.6 on 09/25/16. Accu-checks and SSI were discontinued. SIRS/Sepsis, multiple episodes: Resolved. Coccyx decubitus wound: Wound culture with pseudo fluorescens/putida, group D enterococcus VRE which is sensitive to Zosyn. Patient did have one urine culture of Daphney parapsilosis, was treated with fluconazole for 10 days. Patient had episode of diarrhea, C. difficile cultures performed which was negative. Infectious disease consulted and last seen the patient on 10/18/16, at that time it was indicated to observe off antibiotics. 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 Would benefit from long-term steroids. Most recently treated for possible HAP on 02/05. Sinus tachycardia: Stable. S/p Lopressor TSH, free T3, free T4 were normal Melena, bright red blood in stool: Resolved Status post transfusion, emergently transferred to [facility], emergent endoscopy GI evaluated and managed patient with emergent colonoscopy showing small ulcer in the colon Continue Prevacid Hemoglobin stable Hypernatremia and hyperchloremia: Resolved. Continue free water flushes 200 cc every 4 hours Hypokalemia with mild hypomagnesemia: Improved s/p repletion. Decreased oral intake and dysphagia on initial presentation Speech therapy following intermittently. S/P barium swallow. Patient with severe dysphagia. GI consulted and PEG tube was placed. [employer] following. Due to vomiting tube feeding changed to low volume TwoCal HN, goal rate 50ml/hr. Free Water Flushes and additional free water flush with Maury bid. Coccyx decubitus: Wound care nurse is following. Follow recommendations. Specialty bed Ankle ulcer: R lateral malleolus. -Foam boots. -Wound care nurse following. Follow recommendations. Depression: Patient was evaluated by psychiatrist. Continue Prozac 40 mg daily and Seroquel 25 mg HS. Constipation: Improved. Continue scheduled Senna and Miralax prn. DVT Prophylaxis: Lovenox, TEDs/SCDs. Discharge Planning 04/14/17: I spoke with Gustavo Louis, disability case manager, today. He states he is awaiting to hear back from legal regarding finances for patient as most of his SSI income goes to child support and does not leave enough funds for SNF placement. Attempts to get patient to [place] to be cared for by his mother has not worked out. Problem Qualifiers (1) GI bleed: (2) UTI (urinary tract infection): (3) Effusion of hip joint: Mari Talamantes Apr 15, 2017 12:13
[2017-04-15 20:49] VITALS: BP 121/79; PULSE 79; RESP 20; TEMP 97.9; O2SAT 94
[2017-04-15] MEDS: QUEtiapine FUMARATE 25 MG TAB PO SCH (21:58)
[2017-04-16] MEDS: HYOSCYAMINE SOLN 0.125 MG/ML 15 ML BTL PEG PRN (01:33)
[2017-04-16] MEDS: PADIMATE (CHAPSTICK) 4.5 GM TUBE TOPICAL PRN (01:33)
[2017-04-16] MEDS: azaTHIOprine 50 MG TAB PEG SCH ×2 (05:18→17:12)
[2017-04-16 08:00] VITALS: BP 118/83; PULSE 84; RESP 18; TEMP 97.7; O2SAT 94
[2017-04-16] MEDS: FLUoxetine HCL LIQUID 20 MG/5 ML CUP PEG SCH (08:24)
[2017-04-16] MEDS: predniSONE 20 MG TAB PEG SCH (08:25)
[2017-04-16] MEDS: JUVEN POWDER 1 PACK G-TUBE SCH ×2 (08:26→20:00)
[2017-04-16] MEDS: LANSOPRAZOLE SOLUTAB 30 MG TAB PEG SCH ×2 (08:26→20:00)
[2017-04-16] MEDS: SENNOSIDES SYRUP 8.8 MG/5 ML CUP PEG SCH (08:26)
[2017-04-16] MEDS: LACTOBACILLUS ACIDOPHILUS TAB PEG SCH ×2 (08:26→19:59)
[2017-04-16] MEDS: LACTIC ACID (AMMONIUM LACTATE) 12% LOTION 225 GM BTL TOPICAL SCH ×2 (08:27→20:00)
[2017-04-16] MEDS: ENOXAPARIN SODIUM 40 MG/0.4 ML SYRINGE SQ SCH (08:27)
--- NOTE | 2017-04-16 08:45 | HHI.PR ---
Subjective Remarks Follow-up for neuro Behet's syndrome. Objective Vitals Vital Signs Date Time Temp Pulse Resp B/P (MAP) Pulse Ox O2 Delivery O2 Flow Rate FiO2 04/15/17 20:49 97.9 79 20 121/79 (93) 94 I/O 04/15/17 04/15/17 04/15/17 04/16/17 04/16/17 04/16/17 07:00 15:00 23:00 07:00 15:00 23:00 Intake Total 740 ml Output Total 500 ml 250 ml 450 ml Balance -500 ml -250 ml 290 ml Tube Feeding 480 ml Tube Irrigant 60 ml Other 200 ml Output Urine Total 500 ml 250 ml 450 ml Gastric Drainage Total 0 ml # Bowel Movements 0 1 1 1 Objective Remarks GENERAL: Thin patient in no apparent distress. CARDIOVASCULAR: Regular rate and rhythm. RESPIRATORY: Transmitted grunting upper respiratory sounds. No wheezes, rales, or rhonchi. GASTROINTESTINAL: Abdomen soft, non-tender, nondistended. NEUROLOGICAL: Awake and alert. Nods head to answer questions. 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's disease Status: Chronic (2) Hospital acquired PNA ICD Code: J18.9 - Pneumonia, unspecified organism Status: Resolved (3) Sepsis ICD Code: A41.9 - Sepsis, unspecified organism Status: Resolved (4) Encephalopathy ICD Code: G93.40 - Encephalopathy, unspecified Status: Resolved (5) GI bleed ICD Code: K92.2 - Gastrointestinal hemorrhage, unspecified Status: Resolved (6) HCAP (healthcare-associated pneumonia) ICD Code: J18.9 - Pneumonia, unspecified organism Status: Resolved (7) UTI (urinary tract infection) ICD Code: N39.0 - Urinary tract infection, site not specified Status: Resolved (8) Leucocytosis ICD Code: D72.829 - Elevated white blood cell count, unspecified Status: Resolved (9) Fever ICD Code: R50.9 - Fever, unspecified Status: Resolved (10) Effusion of hip joint ICD Code: M25.459 - Effusion, unspecified hip Status: Acute (11) 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 Patient followed by neurology. Aphasic at baseline. Neurology following the patient Continue Imuran, prednisone EEG shows mild to moderate slowing at times of various depending on the epoch, there was no epileptic activity seen Continue PT/OT Palliative care following the patient and is still indicating the patient is making his own decisions, full code and full aggressive measures [place] discontinued on 03/17 Blurred vision/Diplopia: Related to his neuro Behet's syndrome. -Ophthalmology evaluated patient on 01/11/17. 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 Recommends immunosuppressants and steroids which patient is currently on. Hospital acquired pneumonia: Stable -S/p Levaquin 750 mg x 7 days -Continue suctioning q6h/ prn. -Continue Levsin. -Continue Duonebs as needed Urinary retention: Stable. 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 -Monitor intake and output. -Patient will need to keep Kowalski in place as he is non-ambulatory. Change monthly; last changed 03/30/17. Leukocytosis: Improving. Could be related to prednisone use. May be more likely related to Behcet's syndrome as patient has had leukocytosis without infection in the past. -03/18: WBC 13.3-->12.7. Remains afebrile. Good oxygen saturation. No further workup necessary at this time. -Monitor CBC periodically Prerenal azotemia: Improved. S/p IVF 03/17: BUN 20. Monitor periodically. Hypotension: Improved. Diabetes: Stable HbA1c 6.6 on 09/25/16. Accu-checks and SSI were discontinued. SIRS/Sepsis, multiple episodes: Resolved. Coccyx decubitus wound: Wound culture with pseudo fluorescens/putida, group D enterococcus VRE which is sensitive to Zosyn. Patient did have one urine culture of Daphney parapsilosis, was treated with fluconazole for 10 days. Patient had episode of diarrhea, C. difficile cultures performed which was negative. Infectious disease consulted and last seen the patient on 10/18/16, at that time it was indicated to observe off antibiotics. 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 Would benefit from long-term steroids. Most recently treated for possible HAP on 02/05. Sinus tachycardia: Stable. S/p Lopressor TSH, free T3, free T4 were normal Melena, bright red blood in stool: Resolved Status post transfusion, emergently transferred to main hospital, emergent endoscopy GI evaluated and managed patient with emergent colonoscopy showing small ulcer in the colon Continue Prevacid Hemoglobin stable Hypernatremia and hyperchloremia: Resolved. Continue free water flushes 200 cc every 4 hours Hypokalemia with mild hypomagnesemia: Improved s/p repletion. Decreased oral intake and dysphagia on initial presentation Speech therapy following intermittently. S/P barium swallow. Patient with severe dysphagia. GI consulted and PEG tube was placed. [employer] following. Due to vomiting tube feeding changed to low volume TwoCal HN, goal rate 50ml/hr. Free Water Flushes and additional free water flush with Maury bid. Coccyx decubitus: Wound care nurse is following. Follow recommendations. Specialty bed Ankle ulcer: R lateral malleolus. -Foam boots. -Wound care nurse following. Follow recommendations. Depression: Patient was evaluated by psychiatrist. Continue Prozac 40 mg daily and Seroquel 25 mg HS. Constipation: Improved. Continue scheduled Senna and Miralax prn. DVT Prophylaxis: Lovenox, TEDs/SCDs. Discharge Planning 04/14/17: I spoke with Gustavo Louis, director of casework department, today. He states he is awaiting to hear back from legal regarding finances for patient as most of his SSI income goes to child support and does not leave enough funds for SNF placement. Attempts to get patient to [place] to be cared for by his mother has not worked out. Problem Qualifiers (1) GI bleed: (2) UTI (urinary tract infection): (3) Effusion of hip joint: Mari Talamantes Apr 16, 2017 08:45
[2017-04-16] MEDS: ARTIFICIAL TEARS OPTH SOLN 15 ML BTL EACH EYE PRN (19:59)
[2017-04-16] MEDS: QUEtiapine FUMARATE 25 MG TAB PO SCH (20:00)
[2017-04-16 20:59] VITALS: BP 111/75; PULSE 89; RESP 18; TEMP 98.9; O2SAT 93
[2017-04-17] MEDS: HYOSCYAMINE SOLN 0.125 MG/ML 15 ML BTL PEG PRN (04:23)
[2017-04-17] MEDS: azaTHIOprine 50 MG TAB PEG SCH ×2 (04:23→18:25)
[2017-04-17] MEDS: LACTOBACILLUS ACIDOPHILUS TAB PEG SCH ×2 (08:07→20:43)
[2017-04-17] MEDS: JUVEN POWDER 1 PACK G-TUBE SCH ×2 (08:07→20:43)
[2017-04-17] MEDS: SENNOSIDES SYRUP 8.8 MG/5 ML CUP PEG SCH (08:08)
[2017-04-17] MEDS: FLUoxetine HCL LIQUID 20 MG/5 ML CUP PEG SCH (08:08)
[2017-04-17] MEDS: LANSOPRAZOLE SOLUTAB 30 MG TAB PEG SCH ×2 (08:08→20:43)
[2017-04-17] MEDS: LACTIC ACID (AMMONIUM LACTATE) 12% LOTION 225 GM BTL TOPICAL SCH ×2 (08:08→20:43)
[2017-04-17] MEDS: ENOXAPARIN SODIUM 40 MG/0.4 ML SYRINGE SQ SCH (08:08)
[2017-04-17] MEDS: predniSONE 20 MG TAB PEG SCH (08:08)
[2017-04-17 08:18] VITALS: BP 107/74; PULSE 86; RESP 18; TEMP 96.9; O2SAT 96
--- NOTE | 2017-04-17 09:37 | HHI.PR ---
Subjective Remarks Follow-up for neuro Behet's syndrome. Denies shortness of breath. Denies pain. Objective Vitals Vital Signs Date Time Temp Pulse Resp B/P (MAP) Pulse Ox O2 Delivery O2 Flow Rate FiO2 04/17/17 08:18 96.9 86 18 107/74 (85) 96 04/16/17 20:59 98.9 89 18 111/75 (87) 93 I/O 04/16/17 04/16/17 04/16/17 04/17/17 04/17/17 04/17/17 07:00 15:00 23:00 07:00 15:00 23:00 Intake Total 740 ml 550 ml Output Total 450 ml 0 ml 950 ml Balance 290 ml 0 ml -400 ml Tube Feeding 480 ml 550 ml Tube Irrigant 60 ml Other 200 ml Output Urine Total 450 ml 950 ml Stool Total 0 ml Gastric Drainage Total 0 ml 0 ml # Bowel Movements 1 2 Objective Remarks GENERAL: Thin patient in no apparent distress. CARDIOVASCULAR: Regular rate and rhythm. RESPIRATORY: Snorting upper respiratory sounds. CTAB otherwise. GASTROINTESTINAL: Abdomen soft, non-tender, nondistended. NEUROLOGICAL: Awake and alert. Nods head to answer questions. 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 (2) Hospital acquired PNA ICD Code: J18.9 - Pneumonia, unspecified organism Status: Resolved (3) Sepsis ICD Code: A41.9 - Sepsis, unspecified organism Status: Resolved (4) Encephalopathy ICD Code: G93.40 - Encephalopathy, unspecified Status: Resolved (5) GI bleed ICD Code: K92.2 - Gastrointestinal hemorrhage, unspecified Status: Resolved (6) HCAP (healthcare-associated pneumonia) ICD Code: J18.9 - Pneumonia, unspecified organism Status: Resolved (7) UTI (urinary tract infection) ICD Code: N39.0 - Urinary tract infection, site not specified Status: Resolved (8) Leucocytosis ICD Code: D72.829 - Elevated white blood cell count, unspecified Status: Resolved (9) Fever ICD Code: R50.9 - Fever, unspecified Status: Resolved (10) Effusion of hip joint ICD Code: M25.459 - Effusion, unspecified hip Status: Acute (11) 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 Patient followed by neurology. Aphasic at baseline. Neurology following the patient Continue Imuran, prednisone EEG shows mild to moderate slowing at times of various depending on the epoch, there was no epileptic activity seen Continue PT/OT Palliative care following the patient and is still indicating the patient is making his own decisions, full code and full aggressive measures Soledad discontinued on 03/17 Blurred vision/Diplopia: Related to his neuro Behet's syndrome. -Ophthalmology evaluated patient on 01/11/17. 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 Recommends immunosuppressants and steroids which patient is currently on. Hospital acquired pneumonia: Stable -S/p Levaquin 750 mg x 7 days -Continue suctioning q6h/ prn. -Continue Levsin. -Continue Duonebs as needed Urinary retention: Stable. 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 -Monitor intake and output. -Patient will need to keep Kowalski in place as he is non-ambulatory. Change monthly; last changed 03/30/17. Leukocytosis: Improving. Could be related to prednisone use. May be more likely related to Behcet's syndrome as patient has had leukocytosis without infection in the past. -03/18: WBC 13.3-->12.7. Remains afebrile. Good oxygen saturation. No further workup necessary at this time. -Monitor CBC periodically Prerenal azotemia: Improved. S/p IVF 03/17: BUN 20. Monitor periodically. Hypotension: Improved. Diabetes: Stable HbA1c 6.6 on 09/25/16. Accu-checks and SSI were discontinued. SIRS/Sepsis, multiple episodes: Resolved. Coccyx decubitus wound: Wound culture with pseudo fluorescens/putida, group D enterococcus VRE which is sensitive to Zosyn. Patient did have one urine culture of Daphney parapsilosis, was treated with fluconazole for 10 days. Patient had episode of diarrhea, C. difficile cultures performed which was negative. Infectious disease consulted and last seen the patient on 10/18/16, at that time it was indicated to observe off antibiotics. 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 Would benefit from long-term steroids. Most recently treated for possible HAP on 02/05. Sinus tachycardia: Stable. S/p Lopressor TSH, free T3, free T4 were normal Melena, bright red blood in stool: Resolved Status post transfusion, emergently transferred to [facility], emergent endoscopy GI evaluated and managed patient with emergent colonoscopy showing small ulcer in the colon Continue Prevacid Hemoglobin stable Hypernatremia and hyperchloremia: Resolved. Continue free water flushes 200 cc every 4 hours Hypokalemia with mild hypomagnesemia: Improved s/p repletion. Decreased oral intake and dysphagia on initial presentation Speech therapy following intermittently. S/P barium swallow. Patient with severe dysphagia. GI consulted and PEG tube was placed. General Service Officer following. Due to vomiting tube feeding changed to low volume TwoCal HN, goal rate 50ml/hr. Free Water Flushes and additional free water flush with Maury bid. Coccyx decubitus: Wound care nurse is following. Follow recommendations. Specialty bed Ankle ulcer: R lateral malleolus. -Foam boots. -Wound care nurse following. Follow recommendations. Depression: Patient was evaluated by psychiatrist. Continue Prozac 40 mg daily and Seroquel 25 mg HS. Constipation: Improved. Continue scheduled Senna and Miralax prn. DVT Prophylaxis: Lovenox, TEDs/SCDs. Discharge Planning 04/14/17: I spoke with Gustavo Louis, high risk case manager, today. He states he is awaiting to hear back from legal regarding finances for patient as most of his SSI income goes to child support and does not leave enough funds for SNF placement. Attempts to get patient to [place] to be cared for by his mother has not worked out. Problem Qualifiers (1) GI bleed: (2) UTI (urinary tract infection): (3) Effusion of hip joint: Mari Talamantes Apr 17, 2017 09:37
[2017-04-17 19:00] VITALS: BP 106/79; PULSE 76; RESP 23; TEMP 96.7; O2SAT 100
[2017-04-17 19:40] VITALS: O2SAT 93
[2017-04-17] MEDS: QUEtiapine FUMARATE 25 MG TAB PO SCH (20:44)
[2017-04-18] MEDS: azaTHIOprine 50 MG TAB PEG SCH ×2 (05:52→17:23)
[2017-04-18 08:00] VITALS: BP 119/95; PULSE 97; RESP 18; TEMP 98.3; O2SAT 93
[2017-04-18] MEDS: predniSONE 20 MG TAB PEG SCH (08:24)
[2017-04-18] MEDS: FLUoxetine HCL LIQUID 20 MG/5 ML CUP PEG SCH (08:24)
[2017-04-18] MEDS: LANSOPRAZOLE SOLUTAB 30 MG TAB PEG SCH ×2 (08:24→20:04)
[2017-04-18] MEDS: SENNOSIDES SYRUP 8.8 MG/5 ML CUP PEG SCH (08:24)
[2017-04-18] MEDS: LACTOBACILLUS ACIDOPHILUS TAB PEG SCH ×2 (08:24→20:05)
[2017-04-18] MEDS: ENOXAPARIN SODIUM 40 MG/0.4 ML SYRINGE SQ SCH (08:24)
[2017-04-18] MEDS: LACTIC ACID (AMMONIUM LACTATE) 12% LOTION 225 GM BTL TOPICAL SCH ×2 (08:25→20:06)
[2017-04-18] MEDS: JUVEN POWDER 1 PACK G-TUBE SCH ×2 (08:25→20:05)
--- NOTE | 2017-04-18 09:46 | HHI.PR ---
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 Patient indicates that his vision is still blurred. Denies any new complaints. No change in clinical status. Objective Vitals Vital Signs Date Time Temp Pulse Resp B/P (MAP) Pulse Ox O2 Delivery O2 Flow Rate FiO2 04/18/17 08:00 98.3 97 18 119/95 (103) 93 04/17/17 19:40 93 21 04/17/17 19:00 96.7 76 23 106/79 (88) 100 I/O 04/17/17 04/17/17 04/17/17 04/18/17 04/18/17 04/18/17 07:00 15:00 23:00 07:00 15:00 23:00 Intake Total 550 ml 200 ml 200 ml 1000 ml Output Total 950 ml 800 ml 350 ml Balance -400 ml 200 ml -600 ml 650 ml Tube Feeding 550 ml 600 ml Other 200 ml 200 ml 400 ml Output Urine Total 950 ml 800 ml 350 ml Gastric Drainage Total 0 ml # Bowel Movements 2 0 Objective Remarks GENERAL: Well-developed, cachectic and contracted. HEENT: Head is normocephalic without any lesions or masses noted. Facial features are symmetric. Eyes: Extraocular muscles are intact. Conjunctivae were clear. NECK: Trachea midline no deviation. CARDIAC: Regular rhythm, tachycardia noted. S1/S2 are heard. No murmurs gallops or rubs. LUNGS: Clear to auscultation bilaterally. No wheeze, rhonchi or rales. No use of accessory muscles on inspiration or expiration. ABDOMEN: Soft, nontender. Nondistended. Bowel sounds heard in all 4 quadrants. No organomegaly or masses. Negative rebound, negative guarding. PEG tube noted without any excoriation. EXTREMITIES: No edema, pulses are equal bilaterally. No cyanosis or clubbing. Procedures 07/19/16 EGD with PEG tube placement 09/27/16 colonoscopy Urinary Catheter: Yes Assessment to: Continue Kowalski insert reason: Obstruction/Retention Date of Insertion: Mar 30, 2017 Vascular Central Line Catheter: No A/P Assessment and Plan Neuro-Behcet, history of frontal lobe CVA, encephalopathy, history of meningitis , Blurred vision/double vision, urinary retention, chronic No new changes on imaging. Patient was followed by neurology. Aphasic at baseline. 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 03/30/17, --Decreased oral intake and dysphagia on initial presentation Speech therapy evaluated patient. S/P barium swallow. Patient with severe dysphagia. GI was consulted and PEG tube was placed. Patient was intolerant to bolus feeding Dietary reconsulted and made recommendations Coccyx decubitus. Ankle ulceration Wound care nurse is following the patient for management Patient with specialty bed Mood disorder, depression Psychiatry evaluated patient and made recommendations Prozac 40 mg daily Seroquel 25 mg at bedtime Diabetes Glucose continues to be well controlled, DVT Prophylaxis: Lovenox, TEDs/SCDs. Records reviewed, no change in present treatment plan. Case management discharge planning, Discharge Planning Case management for discharge planning, recent records indicate that planning on transferring back to [place], Ede Richardson Apr 18, 2017 09:46
--- NOTE | 2017-04-18 10:42 | PD.WCN.NOT ---
Wound Consult Description: Patient seen on 3rd floor [facility] for follow up of R lateral malleolus wound and closed wound to sacrococcygeal area. Communicated with: APRYL GUZMAN and Ede BRANTLEY Recommendation: Please continue to cleanse wound to R lateral malleolus with normal saline and apply Maxorb AG just over wound beds cover with dry cover dressing and change every other day. 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 Patient positioned to L side for wound assessment with the assistance of APRYL Obrien and LINNETTE. Wound previously noted as closed wound to sacrococcygeal area is still noted with intact scar tissue covering sacrococcygeal area. Applied skin prep to sacrum/coccyx area and left open to air Wound to R lateral malleolus noted is open to air.Cleansed wound with normal saline. Wound bed is noted with ~80% red granulation tissue and ~20% epithelial island forming in wound. Wound measures ~0.5cmx 1cm x ~0.1cm.Wound now has an oval shape with unattached wound clearly defined unattached wound margins from 4 to 9 o'clock., with scar tissue.Periwound is noted with scar tissue and is otherwise unremarkable. Wound bed is moist with minimal sero- sanguinous drainage that is without odor. Applied Maxorb AG to wound bed and covered wound to bordered gauze. Applied skin prep before applying dry cover dressing. Arleen Gibbs [facility] Apr 18, 2017 10:42
[2017-04-18 19:56] VITALS: O2SAT 94
[2017-04-18 20:00] VITALS: BP 116/73; PULSE 95; RESP 20; TEMP 97.4; O2SAT 94
[2017-04-18] MEDS: QUEtiapine FUMARATE 25 MG TAB PO SCH (20:05)
[2017-04-19] MEDS: azaTHIOprine 50 MG TAB PEG SCH ×2 (05:32→18:00)
[2017-04-19] MEDS: SENNOSIDES SYRUP 8.8 MG/5 ML CUP PEG SCH (07:46)
[2017-04-19] MEDS: LANSOPRAZOLE SOLUTAB 30 MG TAB PEG SCH ×2 (07:46→19:55)
[2017-04-19] MEDS: LACTOBACILLUS ACIDOPHILUS TAB PEG SCH ×2 (07:46→19:54)
[2017-04-19] MEDS: predniSONE 20 MG TAB PEG SCH (07:46)
[2017-04-19] MEDS: FLUoxetine HCL LIQUID 20 MG/5 ML CUP PEG SCH (07:47)
[2017-04-19] MEDS: LACTIC ACID (AMMONIUM LACTATE) 12% LOTION 225 GM BTL TOPICAL SCH ×2 (07:47→20:13)
[2017-04-19] MEDS: ENOXAPARIN SODIUM 40 MG/0.4 ML SYRINGE SQ SCH (07:47)
[2017-04-19 08:00] VITALS: BP 122/72; PULSE 92; RESP 20; TEMP 96.8; O2SAT 97
[2017-04-19] MEDS: JUVEN POWDER 1 PACK G-TUBE SCH ×2 (09:00→19:55)
--- NOTE | 2017-04-19 09:52 | HHI.PR ---
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 Patient denies any new complaints. No change in clinical status. Objective Vitals Vital Signs Date Time Temp Pulse Resp B/P (MAP) Pulse Ox O2 Delivery O2 Flow Rate FiO2 04/19/17 08:00 96.8 92 20 122/72 (89) 97 04/18/17 20:00 97.4 95 20 116/73 (87) 94 04/18/17 19:56 94 21 I/O 04/18/17 04/18/17 04/18/17 04/19/17 04/19/17 04/19/17 07:00 15:00 23:00 07:00 15:00 23:00 Intake Total 1000 ml 250 ml 550 ml Output Total 350 ml 700 ml 250 ml Balance 650 ml -450 ml 300 ml Intake Oral 0 ml Tube Feeding 600 ml 50 ml Other 400 ml 200 ml 550 ml Output Urine Total 350 ml 700 ml 250 ml # Voids 2 # Bowel Movements 0 0 Objective Remarks GENERAL: Well-developed, cachectic and contracted. HEENT: Head is normocephalic without any lesions or masses noted. Facial features are symmetric. Eyes: Extraocular muscles are intact. Conjunctivae were clear. NECK: Trachea midline no deviation. CARDIAC: Regular rhythm, tachycardia noted. S1/S2 are heard. No murmurs gallops or rubs. LUNGS: Clear to auscultation bilaterally. No wheeze, rhonchi or rales. No use of accessory muscles on inspiration or expiration. ABDOMEN: Soft, nontender. Nondistended. Bowel sounds heard in all 4 quadrants. No organomegaly or masses. Negative rebound, negative guarding. PEG tube noted without any excoriation. EXTREMITIES: No edema, pulses are equal bilaterally. No cyanosis or clubbing. Procedures 07/19/16 EGD with PEG tube placement 09/27/16 colonoscopy Urinary Catheter: Yes Assessment to: Continue Kowalski insert reason: Obstruction/Retention Date of Insertion: Mar 30, 2017 Vascular Central Line Catheter: No A/P Assessment and Plan Neuro-Behcet, history of frontal lobe CVA, encephalopathy, history of meningitis , Blurred vision/double vision, urinary retention, chronic No new changes on imaging. Patient was followed by neurology. Aphasic at baseline. 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 03/30/17, --Decreased oral intake and dysphagia on initial presentation Speech therapy evaluated patient. S/P barium swallow. Patient with severe dysphagia. GI was consulted and PEG tube was placed. Patient was intolerant to bolus feeding Dietary reconsulted and made recommendations Coccyx decubitus. Ankle ulceration Wound care nurse is following the patient for management Patient with specialty bed Mood disorder, depression Psychiatry evaluated patient and made recommendations Prozac 40 mg daily Seroquel 25 mg at bedtime Diabetes Glucose continues to be well controlled, DVT Prophylaxis: Lovenox, TEDs/SCDs. Records reviewed, Case management discharge planning, no change in present treatment plan. Discharge Planning Case management for discharge planning, Ede Richardson Apr 19, 2017 09:52
[2017-04-19] MEDS: QUEtiapine FUMARATE 25 MG TAB PO SCH (19:54)
[2017-04-19 20:00] VITALS: BP 116/72; PULSE 79; RESP 20; TEMP 96; O2SAT 97
[2017-04-20] MEDS: azaTHIOprine 50 MG TAB PEG SCH ×2 (06:08→18:31)
[2017-04-20 07:26] LABS: AUTOMATED NEUTROPHIL # 7.3 TH/MM3 (1.8-7.7); BASOPHIL # 0.2 TH/MM3 (0-0.2); BASOPHIL % 1.9 % (0.0-2.0); EOSINOPHIL # 0.1 TH/MM3 (0-0.4); EOSINOPHIL % 0.7 % (0.0-4.0); HEMATOCRIT 40.7 % (39.0-51.0); HEMOGLOBIN 13.3 GM/DL (13.0-17.0); LYMPH % 22.3 % (9.0-44.0); LYMPHOCYTE # 2.3 TH/MM3 (1.0-4.8); MEAN CELL VOLUME 91.6 FL (80.0-100.0); MEAN CORPUSCULAR HGB CONC 32.8 % (32.0-36.0); MEAN PLATELET VOLUME 10.2 FL (7.0-11.0); MONO % 5.1 % (0.0-8.0); MONOCYTE # 0.5 TH/MM3 (0-0.9); PLATELET COUNT 270 TH/MM3 (150-450); RED BLOOD COUNT 4.44 MIL/MM3 (4.50-5.90); RED CELL DISTRIBUTION WIDTH 15.9 % (11.6-17.2); WHITE BLOOD COUNT 10.4 TH/MM3 (4.0-11.0)
[2017-04-20 07:28] LABS: CHLORIDE 106 MEQ/L (98-107); SODIUM (NA) 141 MEQ/L (136-145)
[2017-04-20 07:35] LABS: ALBUMIN 3.3 GM/DL (3.4-5.0); BICARBONATE 29.2 MEQ/L (21.0-32.0); BLOOD UREA NITROGEN 27 MG/DL (7-18); CALCIUM 9.1 MG/DL (8.5-10.1); GLUCOSE,RANDOM 65 MG/DL (74-106); MAGNESIUM 2.4 MG/DL (1.5-2.5)
[2017-04-20 07:38] LABS: AST (GOT) 7 U/L (15-37)
[2017-04-20 07:39] LABS: ALT (GPT) 38 U/L (12-78); CREATININE 0.69 MG/DL (0.60-1.30); GLOMERULAR FILTRATION RATE 150 ML/MIN (>89); TOTAL BILIRUBIN ADULT 0.2 MG/DL (0.2-1.0)
[2017-04-20 07:40] LABS: TOTAL PROTEIN 7.1 GM/DL (6.4-8.2)
[2017-04-20 07:41] LABS: ALKALINE PHOSPHATASE 72 U/L (45-117)
[2017-04-20 08:00] VITALS: BP 102/81; PULSE 83; RESP 16; TEMP 96.2; O2SAT 95
--- NOTE | 2017-04-20 08:20 | HHI.PR ---
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 Patient lying in bed comfortably. Denies any new complaints. No change in clinical status. Objective Vitals Vital Signs Date Time Temp Pulse Resp B/P (MAP) Pulse Ox O2 Delivery O2 Flow Rate FiO2 04/19/17 20:00 96.0 79 20 116/72 (87) 97 I/O 04/19/17 04/19/17 04/19/17 04/20/17 04/20/17 04/20/17 07:00 15:00 23:00 07:00 15:00 23:00 Intake Total 550 ml 0 ml 250 ml 0 ml Output Total 250 ml 450 ml 450 ml 300 ml Balance 300 ml -450 ml -200 ml -300 ml Intake Oral 0 ml 0 ml 0 ml Other 550 ml 250 ml Output Urine Total 250 ml 450 ml 450 ml 300 ml # Bowel Movements 0 0 0 Result Diagram: 04/20/1720 04/20/1720 Objective Remarks GENERAL: Well-developed, cachectic and contracted. HEENT: Head is normocephalic without any lesions or masses noted. Facial features are symmetric. Eyes: Extraocular muscles are intact. Conjunctivae were clear. NECK: Trachea midline no deviation. CARDIAC: Regular rhythm, tachycardia noted. S1/S2 are heard. No murmurs gallops or rubs. LUNGS: Clear to auscultation bilaterally. No wheeze, rhonchi or rales. No use of accessory muscles on inspiration or expiration. ABDOMEN: Soft, nontender. Nondistended. Bowel sounds heard in all 4 quadrants. No organomegaly or masses. Negative rebound, negative guarding. PEG tube noted without any excoriation. EXTREMITIES: No edema, pulses are equal bilaterally. No cyanosis or clubbing. Procedures 07/19/16 EGD with PEG tube placement 09/27/16 colonoscopy Urinary Catheter: Yes Assessment to: Continue Kowalski insert reason: Obstruction/Retention Date of Insertion: Mar 30, 2017 Vascular Central Line Catheter: No A/P Assessment and Plan Neuro-Behcet, history of frontal lobe CVA, encephalopathy, history of meningitis , Blurred vision/double vision, urinary retention, chronic No new changes on imaging. Patient was followed by neurology. Aphasic at baseline. 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 03/30/17, --Decreased oral intake and dysphagia on initial presentation Speech therapy evaluated patient. S/P barium swallow. Patient with severe dysphagia. GI was consulted and PEG tube was placed. Patient was intolerant to bolus feeding Dietary reconsulted and made recommendations Coccyx decubitus. Ankle ulceration Wound care nurse is following the patient for management Patient with specialty bed Mood disorder, depression Psychiatry evaluated patient and made recommendations Prozac 40 mg daily Seroquel 25 mg at bedtime Diabetes Glucose continues to be well controlled, DVT Prophylaxis: Lovenox, TEDs/SCDs. Records reviewed, no change in present treatment plan. Case management discharge planning, Discharge Planning Case management for discharge planning, Ede Richardson Apr 20, 2017 08:20
[2017-04-20] MEDS: JUVEN POWDER 1 PACK G-TUBE SCH ×2 (09:13→20:20)
[2017-04-20] MEDS: SENNOSIDES SYRUP 8.8 MG/5 ML CUP PEG SCH (09:14)
[2017-04-20] MEDS: FLUoxetine HCL LIQUID 20 MG/5 ML CUP PEG SCH (09:14)
[2017-04-20] MEDS: LACTIC ACID (AMMONIUM LACTATE) 12% LOTION 225 GM BTL TOPICAL SCH ×2 (09:14→20:58)
[2017-04-20] MEDS: LANSOPRAZOLE SOLUTAB 30 MG TAB PEG SCH ×2 (09:14→20:20)
[2017-04-20] MEDS: predniSONE 20 MG TAB PEG SCH (09:14)
[2017-04-20] MEDS: LACTOBACILLUS ACIDOPHILUS TAB PEG SCH ×2 (09:14→20:20)
[2017-04-20] MEDS: ENOXAPARIN SODIUM 40 MG/0.4 ML SYRINGE SQ SCH (09:15)
--- NOTE | 2017-04-20 16:23 | HHI.HCPN ---
Reason for visit a. To assist with evaluation and management of symptoms including: debility , encephalopathy b. To assist medical decision maker(s) with: better understanding of current medical conditions; weighing benefits/burdens of medical treatment options; making medical treatment decisions. . (Nora Bullock) Subjective/Interval History Patient seen and examined today for follow regarding goals of care. Patient is nonverbal and has minimal ability to communicate, he is able to nod his head yes or no to simple questions. Patient denies any pain or shortness of breath. He becomes very tearful during our conversation, even with simple topics such as comfort and becomes extremely upset, tachypneic when discussing his family, his current clinical condition, and his goals of care. Patient has been hemodynamically stable, recent laboratory data is stable as well, last imaging was completed in January. . Family/friend interactions Telephone call placed to Patricia Harrell, patient's [facility], updated on patient's clinical status, she stated she has no questions and that "the last time she spoke with the doctor they said they have given up", discussed with Ms. Harrell that there are limited treatment options available for Mr. Mendoza condition. She stated that the family's goal is still to transport Mr. Mendoza back to [place] to be closer to his family. . (Nora Bullock) Advance Directives Living Will: Never completed Health Care Surrogate: Copy in medical record Durable Power of Senior Data Warehouse Architect: Never completed (Nora Bullock) Advance Directive Specifics Health Care Surrogate(s): Patricia Harrell . (Nora Bullock) Objective Vital Signs Date Time Temp Pulse Resp B/P (MAP) Pulse Ox O2 Delivery O2 Flow Rate FiO2 04/20/17 08:00 96.2 83 16 102/81 (88) 95 04/19/17 20:00 96.0 79 20 116/72 (87) 97 Intake & Output 04/20/17 04/20/17 07:00 19:00 Intake Total 250 ml Output Total 750 ml 350 ml Balance -500 ml -350 ml Intake Oral 0 ml Other 250 ml Output Urine Total 750 ml 350 ml # Bowel Movements 0 . Physical Exam CONSTITUTIONAL/GENERAL: This is a thin, middle aged male patient, unable to verbalize, able to nod head yes or no to simple questions. TUBES/LINES/DRAINS: PEG tube, condom catheter SKIN: No jaundice. Skin temperature appropriate. Not diaphoretic. EYES: Pupils equal and round and reactive. Nystagmus, able to move eyes up and down on command. ENT: Hearing grossly normal. Nose without bleeding or purulent drainage. Moderate amount of clear, oral secretions. NECK: Trachea midline. Supple, nontender. CARDIOVASCULAR: Regular rate and rhythm. No Murmurs, gallops, or rubs. No JVD. Peripheral pulses symmetric. RESPIRATORY/CHEST: Shallow respirations with diminished air exchange, scattered rhonchi. GASTROINTESTINAL: Abdomen soft, non-tender, nondistended. PEG tube in place. No guarding. Bowel sounds present. GENITOURINARY: Without palpable bladder distension. Catheter draining clear yellow urine MUSCULOSKELETAL: Extremities without clubbing, cyanosis, or edema. Muscle wasting noted. Contractures in all four extremities. NEUROLOGICAL: Have some purposeful movement, moving eyes upward to indicate yes , and gazing downward to indicate no. Some motion of head movements. Able to move LUE intermittently, can saddle stitcher with left hand. Unable to move RUE. . ([facility],Nora BLACKWELL) Diagnostic Tests Laboratory Laboratory Tests Test 04/20/17 06:20 White Blood Count 10.4 TH/MM3 (4.0-11.0) Red Blood Count 4.44 MIL/MM3 (4.50-5.90) Hemoglobin 13.3 GM/DL (13.0-17.0) Hematocrit 40.7 % (39.0-51.0) Mean Corpuscular Volume 91.6 FL (80.0-100.0) Mean Corpuscular Hemoglobin 30.0 PG (27.0-34.0) Mean Corpuscular Hemoglobin Concent 32.8 % (32.0-36.0) Red Cell Distribution Width 15.9 % (11.6-17.2) Platelet Count 270 TH/MM3 (150-450) Mean Platelet Volume 10.2 FL (7.0-11.0) Neutrophils (%) (Auto) 70.0 % (16.0-70.0) Lymphocytes (%) (Auto) 22.3 % (9.0-44.0) Monocytes (%) (Auto) 5.1 % (0.0-8.0) Eosinophils (%) (Auto) 0.7 % (0.0-4.0) Basophils (%) (Auto) 1.9 % (0.0-2.0) Neutrophils # (Auto) 7.3 TH/MM3 (1.8-7.7) Lymphocytes # (Auto) 2.3 TH/MM3 (1.0-4.8) Monocytes # (Auto) 0.5 TH/MM3 (0-0.9) Eosinophils # (Auto) 0.1 TH/MM3 (0-0.4) Basophils # (Auto) 0.2 TH/MM3 (0-0.2) CBC Comment AUTO DIFF Differential Comment AUTO DIFF CONFIRMED Blood Urea Nitrogen 27 MG/DL (7-18) Creatinine 0.69 MG/DL (0.60-1.30) Random Glucose 65 MG/DL (74-106) Total Protein 7.1 GM/DL (6.4-8.2) Albumin 3.3 GM/DL (3.4-5.0) Calcium Level 9.1 MG/DL (8.5-10.1) Magnesium Level 2.4 MG/DL (1.5-2.5) Alkaline Phosphatase 72 U/L (45-117) Aspartate Amino Transf (AST/SGOT) 7 U/L (15-37) Alanine Aminotransferase (ALT/SGPT) 38 U/L (12-78) Total Bilirubin 0.2 MG/DL (0.2-1.0) Sodium Level 141 MEQ/L (136-145) Potassium Level 3.9 MEQ/L (3.5-5.1) Chloride Level 106 MEQ/L (98-107) Carbon Dioxide Level 29.2 MEQ/L (21.0-32.0) Anion Gap 6 MEQ/L (5-15) Estimat Glomerular Filtration Rate 150 ML/MIN (>89) (Nora Bullock) Result Diagram: 04/20/1761904/20/1720 Procedures -08/19/16 -PEG tube placement -08/17/16- lumbar puncture -10/11/16ultrasound guided aspiration, right hip region. . 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 Now bed bound , completely dependent for all ADLs. Receiving artificial nutrition via PEG tube. Flexion contractures in bilateral lower extremities. (2) Encephalopathy Comment: Patient with diagnosis of neuro-behcet. Patient is bed bound, non- verbal. Eyes are open, but do not track. Pertinent Non-Medical Issues Psychosocial: Reported as . Documented as single in EMR. Patient reportedly has multiple children. Spiritual: No spiritual affiliations. Legal: Patricia Harrell presented as and has been acting as healthcare proxy. Ethical issues impacting care: Patricia Harrell presented as and has been acting as healthcare proxy. . Important Contacts Patricia Mendoza. [phone]. . Prognosis Mr. 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 Patient presented to the ED on 08/13/16 via EMS were reports of decreased oral intake for the prior 2-3 days and skin tear to left upper extremity. He was admitted for sepsis. Patient is at high risk for further complications, continue decline and . His diagnosis of neuro- Behcet's syndrome was done at [facility]. Code Status: Full Code Plan * FULL CODE * DECISION MAKING: Patient consistently reaffirms that if he should lose capacity, he wishes for Patricia Harrell to act as the [facility] decision maker. * GOALS OF CARE: Aggressive. Patient is awake and alert, he is able to communicate only to yes or no questions by nodding his head. He is very tearful throughout conversation and it is difficult to assess his insight into the severity of his condition. When questioned whether he would like to be transferred to [place] to be closer to his mother and family he shakes his head no. When asked would he like to stay in the hospital he shakes head no. When asked if he would like to be comfortable and stop aggressive treatment he becomes tachypneic and cries inconsolably. * Telephone call placed to Patricia Harrell, patient's [facility], updated on patient's clinical status, she stated she has no questions and that "the last time she spoke with the doctor they said they have given up", discussed with Ms. Harrell that there are limited treatment options available for Mr. Mendoza condition. She stated that the family's goal is still to transport Mr. Mendoza back to [place] to be closer to his family and they still desire aggressive care. * Palliative care will continue to follow-up with this patient as needed, but goals of care is firmly established and it remains aggressive . (Nora Bullock) Collaborating MD Comments Chart reviewed. Case discussed with palliative care COMMUNICATION CONSULTANT. Above COMMUNICATION CONSULTANT note reviewed and I concur. . (Antolin Daniel MD) Nora Bullock Apr 20, 2017 16:23 Antolin Daniel MD Apr 20, 2017 17:42
[2017-04-20 20:00] VITALS: BP 115/86; PULSE 78; RESP 20; TEMP 96; O2SAT 99
[2017-04-20] MEDS: QUEtiapine FUMARATE 25 MG TAB PO SCH (20:20)
[2017-04-21] MEDS: azaTHIOprine 50 MG TAB PEG SCH ×2 (05:39→18:35)
[2017-04-21 07:50] VITALS: BP 162/78; PULSE 100; RESP 20; TEMP 97.6; O2SAT 96
[2017-04-21] MEDS: FLUoxetine HCL LIQUID 20 MG/5 ML CUP PEG SCH (08:33)
[2017-04-21] MEDS: ENOXAPARIN SODIUM 40 MG/0.4 ML SYRINGE SQ SCH (08:33)
[2017-04-21] MEDS: LANSOPRAZOLE SOLUTAB 30 MG TAB PEG SCH ×2 (08:33→21:52)
[2017-04-21] MEDS: LACTOBACILLUS ACIDOPHILUS TAB PEG SCH ×2 (08:33→21:52)
[2017-04-21] MEDS: LACTIC ACID (AMMONIUM LACTATE) 12% LOTION 225 GM BTL TOPICAL SCH ×2 (08:33→21:52)
[2017-04-21] MEDS: SENNOSIDES SYRUP 8.8 MG/5 ML CUP PEG SCH (08:33)
[2017-04-21] MEDS: predniSONE 20 MG TAB PEG SCH (08:34)
[2017-04-21] MEDS: JUVEN POWDER 1 PACK G-TUBE SCH ×2 (08:47→21:45)
[2017-04-21 09:30] VITALS: BP 118/82
--- NOTE | 2017-04-21 10:53 | HHI.PR ---
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 Patient denies any new complaints. No change in clinical status. Awaiting case management for discharge planning Objective Vitals Vital Signs Date Time Temp Pulse Resp B/P (MAP) Pulse Ox O2 Delivery O2 Flow Rate FiO2 04/21/17 09:30 118/82 (94) 04/21/17 07:50 97.6 100 20 162/78 (106) 96 04/20/17 20:00 96.0 78 20 115/86 (96) 99 I/O 04/20/17 04/20/17 04/20/17 04/21/17 04/21/17 04/21/17 07:00 15:00 23:00 07:00 15:00 23:00 Intake Total 0 ml 1100 ml 1000 ml Output Total 300 ml 350 ml 1150 ml Balance -300 ml -350 ml 1100 ml -150 ml Intake Oral 0 ml 0 ml Tube Feeding 600 ml 550 ml Tube Irrigant 500 ml 450 ml Output Urine Total 300 ml 350 ml 1150 ml # Bowel Movements 0 3 Result Diagram: 04/20/1761904/20/17619 Objective Remarks GENERAL: Well-developed, cachectic and contracted. HEENT: Head is normocephalic without any lesions or masses noted. Facial features are symmetric. Eyes: Extraocular muscles are intact. Conjunctivae were clear. NECK: Trachea midline no deviation. CARDIAC: Regular rhythm, tachycardia noted. S1/S2 are heard. No murmurs gallops or rubs. LUNGS: Clear to auscultation bilaterally. No wheeze, rhonchi or rales. No use of accessory muscles on inspiration or expiration. ABDOMEN: Soft, nontender. Nondistended. Bowel sounds heard in all 4 quadrants. No organomegaly or masses. Negative rebound, negative guarding. PEG tube noted without any excoriation. EXTREMITIES: No edema, pulses are equal bilaterally. No cyanosis or clubbing. Procedures 07/19/16 EGD with PEG tube placement 09/27/16 colonoscopy Urinary Catheter: Yes Assessment to: Continue Kowalski insert reason: Obstruction/Retention Date of Insertion: Mar 30, 2017 Vascular Central Line Catheter: No A/P Assessment and Plan Neuro-Behcet, history of frontal lobe CVA, encephalopathy, history of meningitis , Blurred vision/double vision, urinary retention, chronic No new changes on imaging. Patient was followed by neurology. Aphasic at baseline. 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 03/30/17, --Decreased oral intake and dysphagia on initial presentation Speech therapy evaluated patient. S/P barium swallow. Patient with severe dysphagia. GI was consulted and PEG tube was placed. Patient was intolerant to bolus feeding Dietary reconsulted and made recommendations Coccyx decubitus. Ankle ulceration Wound care nurse is following the patient for management Patient with specialty bed Mood disorder, depression Psychiatry evaluated patient and made recommendations Prozac 40 mg daily Seroquel 25 mg at bedtime Diabetes Glucose continues to be well controlled, DVT Prophylaxis: Lovenox, TEDs/SCDs. Records reviewed, Case management discharge planning, no change in present treatment plan. Discharge Planning Case management for discharge planning, Ede Richardson Apr 21, 2017 10:53
[2017-04-21 20:00] VITALS: BP 115/82; PULSE 81; RESP 18; TEMP 94.2; O2SAT 98
[2017-04-21] MEDS: QUEtiapine FUMARATE 25 MG TAB PO SCH (21:52)
[2017-04-22] MEDS: azaTHIOprine 50 MG TAB PEG SCH ×2 (06:02→18:20)
[2017-04-22 08:00] VITALS: BP 136/74; PULSE 88; RESP 22; TEMP 97.4; O2SAT 96
--- NOTE | 2017-04-22 08:32 | HHI.PR ---
Subjective Remarks Patient seen and examined today for neuro-Behcet's syndrome. Patient denies any new complaints. No change in clinical status. Objective Vitals Vital Signs Date Time Temp Pulse Resp B/P (MAP) Pulse Ox O2 Delivery O2 Flow Rate FiO2 04/21/17 20:00 94.2 81 18 115/82 (93) 98 04/21/17 09:30 118/82 (94) I/O 04/21/17 04/21/17 04/21/17 04/22/17 04/22/17 04/22/17 07:00 15:00 23:00 07:00 15:00 23:00 Intake Total 1000 ml 1150 ml 0 ml Output Total 1150 ml 500 ml 725 ml Balance -150 ml 650 ml -725 ml Intake Oral 0 ml 0 ml Tube Feeding 550 ml 600 ml Tube Irrigant 450 ml 550 ml Output Urine Total 1150 ml 500 ml 725 ml # Bowel Movements 3 0 1 Result Diagram: 04/20/1761904/20/17619 Objective Remarks GENERAL: Well-developed, cachectic and contracted. HEENT: Head is normocephalic without any lesions or masses noted. Facial features are symmetric. Eyes: Extraocular muscles are intact. Conjunctivae were clear. NECK: Trachea midline no deviation. CARDIAC: Regular rhythm, tachycardia noted. S1/S2 are heard. No murmurs gallops or rubs. LUNGS: Clear to auscultation bilaterally. No wheeze, rhonchi or rales. No use of accessory muscles on inspiration or expiration. ABDOMEN: Soft, nontender. Nondistended. Bowel sounds heard in all 4 quadrants. No organomegaly or masses. Negative rebound, negative guarding. PEG tube noted without any excoriation. EXTREMITIES: No edema, pulses are equal bilaterally. No cyanosis or clubbing. Procedures 07/19/16 EGD with PEG tube placement 09/27/16 colonoscopy Urinary Catheter: Yes Assessment to: Continue Kowalski insert reason: Obstruction/Retention Date of Insertion: Mar 30, 2017 Vascular Central Line Catheter: No A/P Assessment and Plan Neuro-Behcet, history of frontal lobe CVA, encephalopathy, history of meningitis , Blurred vision/double vision, urinary retention, chronic No new changes on imaging. Patient was followed by neurology. Aphasic at baseline. Continue Imuran, prednisone EEG shows mild to moderate slowing at times of various depending on the epoch , there was no epileptic activity seen Continue PT/OT Palliative care still following the patient. 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 03/30/17, --Decreased oral intake and dysphagia on initial presentation Speech therapy evaluated patient. S/P barium swallow. Patient with severe dysphagia. GI was consulted and PEG tube was placed. Patient was intolerant to bolus feeding Dietary reconsulted and made recommendations Coccyx decubitus. Ankle ulceration Wound care nurse is following the patient for management Patient with specialty bed Mood disorder, depression Psychiatry evaluated patient and made recommendations Prozac 40 mg daily Seroquel 25 mg at bedtime Diabetes Glucose continues to be well controlled, DVT Prophylaxis: Lovenox, TEDs/SCDs. Records reviewed, no change in present treatment plan. Case management discharge planning, Discharge Planning Case management for discharge planning, Ede Richardson Apr 22, 2017 08:32
[2017-04-22] MEDS: JUVEN POWDER 1 PACK G-TUBE SCH ×2 (09:00→21:08)
[2017-04-22] MEDS: LACTIC ACID (AMMONIUM LACTATE) 12% LOTION 225 GM BTL TOPICAL SCH ×2 (09:45→21:08)
[2017-04-22] MEDS: ENOXAPARIN SODIUM 40 MG/0.4 ML SYRINGE SQ SCH (09:46)
[2017-04-22] MEDS: LANSOPRAZOLE SOLUTAB 30 MG TAB PEG SCH ×2 (09:46→21:07)
[2017-04-22] MEDS: FLUoxetine HCL LIQUID 20 MG/5 ML CUP PEG SCH (09:46)
[2017-04-22] MEDS: LACTOBACILLUS ACIDOPHILUS TAB PEG SCH ×2 (09:46→21:07)
[2017-04-22] MEDS: SENNOSIDES SYRUP 8.8 MG/5 ML CUP PEG SCH (09:46)
[2017-04-22] MEDS: predniSONE 20 MG TAB PEG SCH (09:46)
[2017-04-22 19:57] VITALS: BP 110/86; PULSE 79; RESP 20; TEMP 97.8; O2SAT 97
[2017-04-22] MEDS: QUEtiapine FUMARATE 25 MG TAB PO SCH (21:07)
[2017-04-23] MEDS: azaTHIOprine 50 MG TAB PEG SCH ×2 (06:16→17:15)
[2017-04-23 08:00] VITALS: BP 126/79; PULSE 94; RESP 20; TEMP 97.4; O2SAT 95
--- NOTE | 2017-04-23 09:06 | HHI.PR ---
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 Patient denies any new complaints. No change in clinical status. Awaiting case management discharge planning Objective Vitals Vital Signs Date Time Temp Pulse Resp B/P (MAP) Pulse Ox O2 Delivery O2 Flow Rate FiO2 04/23/17 08:00 97.4 94 20 126/79 (95) 95 04/23/17 04:56 04/22/17 19:57 97.8 79 20 110/86 (94) 97 I/O 04/22/17 04/22/17 04/22/17 04/23/17 04/23/17 04/23/17 07:00 15:00 23:00 07:00 15:00 23:00 Intake Total 0 ml 0 ml 1100 ml 1370 ml Output Total 725 ml 525 ml 450 ml Balance -725 ml -525 ml 1100 ml 920 ml Intake Oral 0 ml 0 ml Tube Feeding 700 ml 1250 ml Other 400 ml 120 ml Output Urine Total 725 ml 525 ml 450 ml # Bowel Movements 1 0 0 Result Diagram: 04/20/1761904/20/17619 Objective Remarks GENERAL: Well-developed, cachectic and contracted. HEENT: Head is normocephalic without any lesions or masses noted. Facial features are symmetric. Eyes: Extraocular muscles are intact. Conjunctivae were clear. NECK: Trachea midline no deviation. CARDIAC: Regular rhythm, tachycardia noted. S1/S2 are heard. No murmurs gallops or rubs. LUNGS: Clear to auscultation bilaterally. No wheeze, rhonchi or rales. No use of accessory muscles on inspiration or expiration. ABDOMEN: Soft, nontender. Nondistended. Bowel sounds heard in all 4 quadrants. No organomegaly or masses. Negative rebound, negative guarding. PEG tube noted without any excoriation. EXTREMITIES: No edema, pulses are equal bilaterally. No cyanosis or clubbing. Procedures 07/19/16 EGD with PEG tube placement 09/27/16 colonoscopy Urinary Catheter: Yes Assessment to: Continue Kowalski insert reason: Obstruction/Retention Date of Insertion: Mar 30, 2017 A/P Assessment and Plan Neuro-Behcet, history of frontal lobe CVA, encephalopathy, history of meningitis , Blurred vision/double vision, urinary retention, chronic No new changes on imaging. Patient was followed by neurology. Aphasic at baseline. Continue Imuran, prednisone EEG shows mild to moderate slowing at times of various depending on the epoch , there was no epileptic activity seen Continue PT/OT Palliative care still following the patient. 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 03/30/17, --Decreased oral intake and dysphagia on initial presentation Speech therapy evaluated patient. S/P barium swallow. Patient with severe dysphagia. GI was consulted and PEG tube was placed. Patient was intolerant to bolus feeding Dietary reconsulted and made recommendations Coccyx decubitus. Ankle ulceration Wound care nurse is following the patient for management Patient with specialty bed Mood disorder, depression Psychiatry evaluated patient and made recommendations Prozac 40 mg daily Seroquel 25 mg at bedtime Diabetes Glucose continues to be well controlled, DVT Prophylaxis: Lovenox, TEDs/SCDs. Records reviewed, Case management discharge planning, no change in present treatment plan. Discharge Planning Case management for discharge planning, Ede Richardson Apr 23, 2017 09:06
[2017-04-23] MEDS: LACTOBACILLUS ACIDOPHILUS TAB PEG SCH ×2 (09:18→21:47)
[2017-04-23] MEDS: ENOXAPARIN SODIUM 40 MG/0.4 ML SYRINGE SQ SCH (09:18)
[2017-04-23] MEDS: FLUoxetine HCL LIQUID 20 MG/5 ML CUP PEG SCH (09:18)
[2017-04-23] MEDS: LACTIC ACID (AMMONIUM LACTATE) 12% LOTION 225 GM BTL TOPICAL SCH ×2 (09:18→21:00)
[2017-04-23] MEDS: ARTIFICIAL TEARS OPTH SOLN 15 ML BTL EACH EYE PRN (09:18)
[2017-04-23] MEDS: LANSOPRAZOLE SOLUTAB 30 MG TAB PEG SCH ×2 (09:19→21:47)
[2017-04-23] MEDS: HYOSCYAMINE SOLN 0.125 MG/ML 15 ML BTL PEG PRN (09:19)
[2017-04-23] MEDS: predniSONE 20 MG TAB PEG SCH (09:19)
[2017-04-23] MEDS: JUVEN POWDER 1 PACK G-TUBE SCH ×2 (09:19→21:00)
[2017-04-23] MEDS: SENNOSIDES SYRUP 8.8 MG/5 ML CUP PEG SCH (09:19)
[2017-04-23 21:40] VITALS: BP 129/88; PULSE 80; RESP 20; TEMP 98.9; O2SAT 98
[2017-04-23] MEDS: QUEtiapine FUMARATE 25 MG TAB PO SCH (21:47)
[2017-04-24] MEDS: azaTHIOprine 50 MG TAB PEG SCH ×2 (05:59→17:14)
[2017-04-24 08:00] VITALS: BP 108/78; PULSE 88; RESP 18; TEMP 98.2; O2SAT 94
[2017-04-24] MEDS: ENOXAPARIN SODIUM 40 MG/0.4 ML SYRINGE SQ SCH (08:19)
[2017-04-24] MEDS: FLUoxetine HCL LIQUID 20 MG/5 ML CUP PEG SCH (08:19)
[2017-04-24] MEDS: SENNOSIDES SYRUP 8.8 MG/5 ML CUP PEG SCH (08:19)
[2017-04-24] MEDS: LACTIC ACID (AMMONIUM LACTATE) 12% LOTION 225 GM BTL TOPICAL SCH ×2 (08:19→21:14)
[2017-04-24] MEDS: LANSOPRAZOLE SOLUTAB 30 MG TAB PEG SCH ×2 (08:20→21:14)
[2017-04-24] MEDS: LACTOBACILLUS ACIDOPHILUS TAB PEG SCH ×2 (08:20→21:14)
[2017-04-24] MEDS: predniSONE 20 MG TAB PEG SCH (08:20)
--- NOTE | 2017-04-24 09:33 | HHI.PR ---
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 Patient denies any new complaints. No change in clinical status. Awaiting case management for discharge planning. Objective Vitals Vital Signs Date Time Temp Pulse Resp B/P (MAP) Pulse Ox O2 Delivery O2 Flow Rate FiO2 04/23/17 21:40 98.9 80 20 129/88 (102) 98 I/O 04/23/17 04/23/17 04/23/17 04/24/17 04/24/17 04/24/17 07:00 15:00 23:00 07:00 15:00 23:00 Intake Total 1370 ml 1000 ml 720 ml Output Total 450 ml 450 ml 500 ml 550 ml Balance 920 ml -450 ml 500 ml 170 ml Intake Oral 0 ml Tube Feeding 1250 ml 600 ml 600 ml Other 120 ml 400 ml 120 ml Output Urine Total 450 ml 450 ml 500 ml 550 ml # Bowel Movements 0 0 1 1 Result Diagram: 04/20/1761904/20/17619 Objective Remarks GENERAL: Well-developed, cachectic and contracted. HEENT: Head is normocephalic without any lesions or masses noted. Facial features are symmetric. Eyes: Extraocular muscles are intact. Conjunctivae were clear. NECK: Trachea midline no deviation. CARDIAC: Regular rhythm, tachycardia noted. S1/S2 are heard. No murmurs gallops or rubs. LUNGS: Clear to auscultation bilaterally. No wheeze, rhonchi or rales. No use of accessory muscles on inspiration or expiration. ABDOMEN: Soft, nontender. Nondistended. Bowel sounds heard in all 4 quadrants. No organomegaly or masses. Negative rebound, negative guarding. PEG tube noted without any excoriation. EXTREMITIES: No edema, pulses are equal bilaterally. No cyanosis or clubbing. Procedures 07/19/16 EGD with PEG tube placement 09/27/16 colonoscopy Urinary Catheter: Yes Assessment to: Continue Kowalski insert reason: Obstruction/Retention Date of Insertion: Mar 30, 2017 Vascular Central Line Catheter: No A/P Assessment and Plan Neuro-Behcet, history of frontal lobe CVA, encephalopathy, history of meningitis , Blurred vision/double vision, urinary retention, chronic No new changes on imaging. Patient was followed by neurology. Aphasic at baseline. Continue Imuran, prednisone EEG shows mild to moderate slowing at times of various depending on the epoch , there was no epileptic activity seen Continue PT/OT Palliative care still following the patient. 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 03/30/17, --Decreased oral intake and dysphagia on initial presentation Speech therapy evaluated patient. S/P barium swallow. Patient with severe dysphagia. GI was consulted and PEG tube was placed. Patient was intolerant to bolus feeding Dietary reconsulted and made recommendations Coccyx decubitus. Ankle ulceration Wound care nurse is following the patient for management Patient with specialty bed Mood disorder, depression Psychiatry evaluated patient and made recommendations Prozac 40 mg daily Seroquel 25 mg at bedtime Diabetes Glucose continues to be well controlled, DVT Prophylaxis: Lovenox, TEDs/SCDs. Records reviewed, no change in present treatment plan. Case management discharge planning, Discharge Planning Case management for discharge planning, Ede Richardson Apr 24, 2017 09:33
[2017-04-24] MEDS: JUVEN POWDER 1 PACK G-TUBE SCH ×2 (09:56→21:00)
[2017-04-24 20:00] VITALS: BP 121/83; PULSE 84; RESP 20; TEMP 96.6; O2SAT 97
[2017-04-24] MEDS: QUEtiapine FUMARATE 25 MG TAB PO SCH (21:14)
[2017-04-25] MEDS: azaTHIOprine 50 MG TAB PEG SCH ×2 (05:59→17:47)
[2017-04-25 08:02] VITALS: BP 101/80; PULSE 90; RESP 18; TEMP 98; O2SAT 93
[2017-04-25] MEDS: FLUoxetine HCL LIQUID 20 MG/5 ML CUP PEG SCH (08:56)
[2017-04-25] MEDS: LACTIC ACID (AMMONIUM LACTATE) 12% LOTION 225 GM BTL TOPICAL SCH ×2 (08:56→20:30)
[2017-04-25] MEDS: ENOXAPARIN SODIUM 40 MG/0.4 ML SYRINGE SQ SCH (08:57)
[2017-04-25] MEDS: predniSONE 20 MG TAB PEG SCH (08:57)
[2017-04-25] MEDS: SENNOSIDES SYRUP 8.8 MG/5 ML CUP PEG SCH (08:57)
[2017-04-25] MEDS: LANSOPRAZOLE SOLUTAB 30 MG TAB PEG SCH ×2 (08:57→20:12)
[2017-04-25] MEDS: LACTOBACILLUS ACIDOPHILUS TAB PEG SCH ×2 (08:57→20:12)
[2017-04-25] MEDS: JUVEN POWDER 1 PACK G-TUBE SCH ×2 (08:58→20:14)
--- NOTE | 2017-04-25 09:51 | HHI.PR ---
Subjective Remarks Follow up Neuro-Bechet's syndrome. Patient seen and examined in room. Nonverbal. Denies any new acute complaints, nods yes and no appropriately to questions. Denies any pain. Afebrile. Vitals stable. Spoke to RN at bedside with no new events reported overnight. Objective Vitals Vital Signs Date Time Temp Pulse Resp B/P (MAP) Pulse Ox O2 Delivery O2 Flow Rate FiO2 04/25/17 08:02 98.0 90 18 101/80 (87) 93 04/24/17 20:00 96.6 84 20 121/83 (96) 97 I/O 04/24/17 04/24/17 04/24/17 04/25/17 04/25/17 04/25/17 07:00 15:00 23:00 07:00 15:00 23:00 Intake Total 720 ml 1150 ml Output Total 550 ml 525 ml 650 ml 200 ml Balance 170 ml -525 ml 500 ml -200 ml Intake Oral 0 ml Tube Feeding 600 ml 600 ml Tube Irrigant 550 ml Other 120 ml Output Urine Total 550 ml 525 ml 650 ml 200 ml # Bowel Movements 1 1 1 Imaging Last Impressions Chest X-Ray 02/04/17 0000 Signed Impressions: Service Date/Time: Saturday, February 04, 2017 23:21 - CONCLUSION: Minimal bibasilar densities greater right lower lobe. Gen Potter MD Hip Aspiration/Injection 10/08/16 0000 Signed Impressions: Service Date/Time: Tuesday, October 11, 2016 13:41 - CONCLUSION: Uncomplicated aspiration as above. Minimal fluid on the right. No identifiable fluid on the left Clayton Max MD Lower Extremity Ultrasound 10/06/16 0000 Signed Impressions: Service Date/Time: September 17:29 - CONCLUSION: Normal examination. Josafat Meyer MD CT Angiography 10/06/16 0000 Signed Impressions: Service Date/Time: September 20:31 - CONCLUSION: Minimal right upper lobe infiltrate and basilar atelectasis. No evidence of pulmonary embolism.. Josafat Meyer MD Abdomen/Pelvis CT 10/06/16 0000 Signed Impressions: Service Date/Time: September 20:31 - CONCLUSION: No evidence of pelvic abscess. Josafat Meyer MD Upper Extremity Ultrasound 09/28/16 Signed Impressions: Service Date/Time: Wednesday, September 28, 2016 19:15 - CONCLUSION: 1. Occlusive superficial thrombosis in the left cephalic vein near the antecubital fossa. No deep venous thrombosis. Sumit Bourgeois MD Renal Ultrasound 08/28/16 Signed Impressions: Service Date/Time: Sunday, August 28, 2016 20:03 - CONCLUSION: Mild increased echotexture of both kidneys. Baldev Vu MD Lumbar Puncture Fluoroscopy 08/17/16 Signed Impressions: Service Date/Time: Wednesday, August 17, 2016 12:26 - CONCLUSION: Uncomplicated fluoroscopically guided lumbar puncture. Vishal Beckford Jr., MD Brain MRI 08/17/16 Signed Impressions: Service Date/Time: Wednesday, August 17, 2016 13:28 - CONCLUSION: Remote long-standing areas of abnormality in the brainstem and middle cerebellar peduncle consistent with remote infarcts or contusion. No acute intracranial abnormality. Chacho Bright MD Abdomen X-Ray 08/17/16 Signed Impressions: Service Date/Time: Wednesday, August 17, 2016 13:02 - CONCLUSION: No evidence of obstruction. No MRI incompatible foreign body is identified. Chacho Bright MD Head CT 08/16/16 Signed Impressions: Service Date/Time: Tuesday, August 16, 2016 09:55 - CONCLUSION: Chronic ischemic changes left frontal lobe possibly from evidence of previous ventriculostomy placement, unchanged. No acute intracranial abnormality. Gen Potter MD Modified Barium Swallow 08/15/16 Signed Impressions: Service Date/Time: Monday, August 15, 2016 00:00 - CONCLUSION: See report above and speech pathology report Chacho Bright MD Objective Remarks GENERAL: Well-developed cachectic and contracted male patient in NAD. Awake and alert, nonverbal. Nodding appropriately. SKIN: Warm and dry. No rash. HEENT: Normocephalic. Atraumatic. Pupils equal and round. No scleral icterus. No injection or drainage. No nasal bleeding or discharge. Mucous membranes pink and moist. NECK: Supple. Trachea midline. CARDIOVASCULAR: Regular rate and rhythm. S1, S2 noted. No murmur appreciated. RESPIRATORY: No accessory muscle use. Clear to auscultation. Breath sounds equal bilaterally. GASTROINTESTINAL: Abdomen soft, non-tender, nondistended. Normoactive bowel sounds x4. No guarding. PEG tube noted, no erythema or drainage from site, c/d/ i. MUSCULOSKELETAL: No obvious deformities. Extremities without clubbing, cyanosis , or edema. 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 - Behcet's disease Status: Chronic (2) Hospital acquired PNA ICD Code: J18.9 - Pneumonia, unspecified organism Status: Resolved (3) Sepsis ICD Code: A41.9 - Sepsis, unspecified organism Status: Resolved (4) Encephalopathy ICD Code: G93.40 - Encephalopathy, unspecified Status: Resolved (5) GI bleed ICD Code: K92.2 - Gastrointestinal hemorrhage, unspecified Status: Resolved (6) HCAP (healthcare-associated pneumonia) ICD Code: J18.9 - Pneumonia, unspecified organism Status: Resolved (7) UTI (urinary tract infection) ICD Code: N39.0 - Urinary tract infection, site not specified Status: Resolved (8) Leucocytosis ICD Code: D72.829 - Elevated white blood cell count, unspecified Status: Resolved (9) Fever ICD Code: R50.9 - Fever, unspecified Status: Resolved (10) Effusion of hip joint ICD Code: M25.459 - Effusion, unspecified hip Status: Acute (11) 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 Patient was followed by neurology. Aphasic at baseline. Continue Imuran, prednisone EEG shows mild to moderate slowing at times of various depending on the epoch , there was no epileptic activity seen Continue PT/OT Palliative care still following the patient. Still indicating full code and full aggressive measures Bacterial conjunctivitis of left eye - Ofloxacin eye drops ordered. Supportive care. Monitor clinically for improvement. 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 03/30/17 Decreased oral intake and dysphagia on initial presentation Speech therapy evaluated patient. S/P barium swallow. Patient with severe dysphagia. GI was consulted and PEG tube was placed. Patient was intolerant to bolus feeding Dietary reconsulted and made recommendations. tube feeding continued, TwoCal HN, goal rate 50ml/hr. Free Water Flushes and additional free water flush with Maury bid. Coccyx decubitus Ankle ulceration Wound care nurse is following the patient for management Patient with specialty bed Mood disorder, depression Psychiatry evaluated patient and made recommendations Prozac 40 mg daily Seroquel 25 mg at bedtime Diabetes Glucose continues to be well controlled DVT Prophylaxis: Lovenox, TEDs/SCDs. Records reviewed extensively. Case management discharge planning. Discharge Planning Case management assisting. Problem Qualifiers (1) GI bleed: (2) UTI (urinary tract infection): (3) Effusion of hip joint: Dotty Pacheco Apr 25, 2017 09:51
[2017-04-25] MEDS: OFLOXACIN 0.3% OPTH SOLN 5 ML BTL EACH EYE SCH ×2 (13:48→17:55)
[2017-04-25 20:00] VITALS: BP 127/67; PULSE 84; RESP 16; TEMP 97.7; O2SAT 100
[2017-04-25] MEDS: QUEtiapine FUMARATE 25 MG TAB PO SCH (20:12)
[2017-04-26] VITALS (9 sets, daily range): BP systolic 86–114; BP diastolic 64–84; PULSE 84–106; RESP 14–19; TEMP 97.5–101.9; O2SAT 89–100
[2017-04-26] MEDS: OFLOXACIN 0.3% OPTH SOLN 5 ML BTL EACH EYE SCH ×4 (00:03→17:39)
[2017-04-26] MEDS: LACTIC ACID (AMMONIUM LACTATE) 12% LOTION 225 GM BTL TOPICAL SCH ×2 (00:05→09:00)
[2017-04-26] MEDS: azaTHIOprine 50 MG TAB PEG SCH ×2 (05:21→18:49)
[2017-04-26] MEDS: predniSONE 20 MG TAB PEG SCH (08:32)
[2017-04-26] MEDS: SENNOSIDES SYRUP 8.8 MG/5 ML CUP PEG SCH (08:32)
[2017-04-26] MEDS: FLUoxetine HCL LIQUID 20 MG/5 ML CUP PEG SCH (08:32)
[2017-04-26] MEDS: ENOXAPARIN SODIUM 40 MG/0.4 ML SYRINGE SQ SCH (08:32)
[2017-04-26] MEDS: ACETAMINOPHEN 650 MG SUPP RECTAL PRN (08:32)
[2017-04-26] MEDS: LANSOPRAZOLE SOLUTAB 30 MG TAB PEG SCH ×2 (09:00→20:51)
[2017-04-26] MEDS: JUVEN POWDER 1 PACK G-TUBE SCH ×2 (09:00→21:25)
[2017-04-26] MEDS: LACTOBACILLUS ACIDOPHILUS TAB PEG SCH ×2 (09:00→20:51)
[2017-04-26 10:42] LABS: AUTOMATED NEUTROPHIL # 20.8 TH/MM3 (1.8-7.7); BASOPHIL # 0.1 TH/MM3 (0-0.2); BASOPHIL % 0.4 % (0.0-2.0); EOSINOPHIL % 0.1 % (0.0-4.0); HEMATOCRIT 40.5 % (39.0-51.0); LYMPH % 5.1 % (9.0-44.0); LYMPHOCYTE # 1.2 TH/MM3 (1.0-4.8); MEAN CELL VOLUME 92.4 FL (80.0-100.0); MEAN CORPUSCULAR HEMOGLOBIN 29.8 PG (27.0-34.0); MEAN CORPUSCULAR HGB CONC 32.2 % (32.0-36.0); MEAN PLATELET VOLUME 9.9 FL (7.0-11.0); MONO % 2.1 % (0.0-8.0); MONOCYTE # 0.5 TH/MM3 (0-0.9); NEUT % 92.3 % (16.0-70.0); PLATELET COUNT 284 TH/MM3 (150-450); RED BLOOD COUNT 4.38 MIL/MM3 (4.50-5.90); RED CELL DISTRIBUTION WIDTH 16.4 % (11.6-17.2); WHITE BLOOD COUNT 22.6 TH/MM3 (4.0-11.0)
[2017-04-26 10:45] LABS: BILIRUBIN, URINE NEG (NEG); BLOOD, URINE LARGE (NEG); GLUCOSE,URINE NEG (NEG); KETONE, URINE NEG (NEG); NITRITE,URINE POS (NEG); PH, URINE 6.5 (5.0-8.5); URINE LEUKOCYTE ESTERASE LARGE (NEG)
[2017-04-26 10:50] LABS: CHLORIDE 102 MEQ/L (98-107); SODIUM (NA) 138 MEQ/L (136-145)
[2017-04-26 10:54] LABS: BLOOD UREA NITROGEN 25 MG/DL (7-18); CALCIUM 8.8 MG/DL (8.5-10.1); GLUCOSE,RANDOM 246 MG/DL (74-106)
[2017-04-26 10:57] LABS: ALT (GPT) 29 U/L (12-78); AST (GOT) 12 U/L (15-37); CREATININE 0.99 MG/DL (0.60-1.30); GLOMERULAR FILTRATION RATE 99 ML/MIN (>89)
[2017-04-26 10:59] LABS: TOTAL BILIRUBIN ADULT 0.4 MG/DL (0.2-1.0); TOTAL PROTEIN 6.5 GM/DL (6.4-8.2)
[2017-04-26 11:00] LABS: ALKALINE PHOSPHATASE 66 U/L (45-117)
[2017-04-26 11:01] LABS: URINE COLOR YELLOW (YELLW/STRAW)
[2017-04-26 11:02] LABS: WBC, URINE INNUM /hpf (0-5); WHITE BLOOD CELL CLUMPS MANY
[2017-04-26 11:03] LABS: BACTERIA, URINE MANY /hpf; CALCIUM OXALATE CRYSTALS,URINE FEW /hpf
--- NOTE | 2017-04-26 13:19 | HHI.PR ---
Subjective Remarks Follow up Objective Vitals Vital Signs Date Time Temp Pulse Resp B/P (MAP) Pulse Ox O2 Delivery O2 Flow Rate FiO2 04/26/17 08:00 101.9 95 19 104/64 (77) 93 04/25/17 20:00 97.7 84 16 127/67 (87) 100 I/O 04/25/17 04/25/17 04/25/17 04/26/17 04/26/17 04/26/17 07:00 15:00 23:00 07:00 15:00 23:00 Intake Total 1150 ml Output Total 200 ml 600 ml Balance -200 ml 1150 ml -600 ml Tube Feeding 600 ml Tube Irrigant 550 ml Output Urine Total 200 ml 600 ml # Bowel Movements 1 Result Diagram: 04/26/17 1005 04/26/17 1005 Objective Remarks GENERAL: Well-developed cachectic and contracted male patient in NAD. Awake and alert, nonverbal. Nodding appropriately. SKIN: Warm and dry. No rash. HEENT: Normocephalic. Atraumatic. Pupils equal and round. No scleral icterus. No injection or drainage. No nasal bleeding or discharge. Mucous membranes pink and moist. NECK: Supple. Trachea midline. CARDIOVASCULAR: Regular rate and rhythm. S1, S2 noted. No murmur appreciated. RESPIRATORY: No accessory muscle use. Clear to auscultation. Breath sounds equal bilaterally. GASTROINTESTINAL: Abdomen soft, non-tender, nondistended. Normoactive bowel sounds x4. No guarding. PEG tube noted, no erythema or drainage from site, c/d/ i. MUSCULOSKELETAL: No obvious deformities. Extremities without clubbing, cyanosis , or edema. 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's disease Status: Chronic (2) Hospital acquired PNA ICD Code: J18.9 - Pneumonia, unspecified organism Status: Resolved (3) Sepsis ICD Code: A41.9 - Sepsis, unspecified organism Status: Resolved (4) Encephalopathy ICD Code: G93.40 - Encephalopathy, unspecified Status: Resolved (5) GI bleed ICD Code: K92.2 - Gastrointestinal hemorrhage, unspecified Status: Resolved (6) HCAP (healthcare-associated pneumonia) ICD Code: J18.9 - Pneumonia, unspecified organism Status: Resolved (7) UTI (urinary tract infection) ICD Code: N39.0 - Urinary tract infection, site not specified Status: Resolved (8) Leucocytosis ICD Code: D72.829 - Elevated white blood cell count, unspecified Status: Resolved (9) Fever ICD Code: R50.9 - Fever, unspecified Status: Resolved (10) Effusion of hip joint ICD Code: M25.459 - Effusion, unspecified hip Status: Acute (11) 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 Patient was followed by neurology. Aphasic at baseline. Continue Imuran, prednisone EEG shows mild to moderate slowing at times of various depending on the epoch , there was no epileptic activity seen Continue PT/OT Palliative care still following the patient. Still indicating full code and full aggressive measures Bacterial conjunctivitis of left eye - Ofloxacin eye drops ordered. Supportive care. Monitor clinically for improvement. 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 03/30/17 Decreased oral intake and dysphagia on initial presentation Speech therapy evaluated patient. S/P barium swallow. Patient with severe dysphagia. GI was consulted and PEG tube was placed. Patient was intolerant to bolus feeding Dietary reconsulted and made recommendations. tube feeding continued, TwoCal HN, goal rate 50ml/hr. Free Water Flushes and additional free water flush with Maury bid. Coccyx decubitus Ankle ulceration Wound care nurse is following the patient for management Patient with specialty bed Mood disorder, depression Psychiatry evaluated patient and made recommendations Prozac 40 mg daily Seroquel 25 mg at bedtime Diabetes Glucose continues to be well controlled DVT Prophylaxis: Lovenox, TEDs/SCDs. Records reviewed extensively. Case management discharge planning. Discharge Planning Case management assisting. Problem Qualifiers (1) GI bleed: (2) UTI (urinary tract infection): (3) Effusion of hip joint: Dotty Pacheco Apr 26, 2017 13:19
--- NOTE | 2017-04-26 14:25 | HHI.PR ---
Subjective Remarks Patient develop with patient developed fever and tachycardia today. CBC showing leukocytosis and urinalysis suspicious for infection. The patient denies shortness of breath or abdominal pain. He is nonverbal but indicates through head movements that he is comfortable. Objective Vitals Vital Signs Date Time Temp Pulse Resp B/P (MAP) Pulse Ox O2 Delivery O2 Flow Rate FiO2 04/26/17 08:00 101.9 95 19 104/64 (77) 93 04/25/17 20:00 97.7 84 16 127/67 (87) 100 I/O 04/25/17 04/25/17 04/25/17 04/26/17 04/26/17 04/26/17 07:00 15:00 23:00 07:00 15:00 23:00 Intake Total 1150 ml Output Total 200 ml 600 ml Balance -200 ml 1150 ml -600 ml Tube Feeding 600 ml Tube Irrigant 550 ml Output Urine Total 200 ml 600 ml # Bowel Movements 1 Result Diagram: 04/26/17 1005 04/26/17 1005 Objective Remarks GENERAL: Middle-aged Afro-Bangl[place]hi male patient who is bedbound. SKIN: Warm and dry. HEAD: Normocephalic. EYES: No scleral icterus. No injection or drainage. NECK: Supple, trachea midline. No JVD or lymphadenopathy. CARDIOVASCULAR: Regular rate and rhythm without murmurs, gallops, or rubs. RESPIRATORY: Breath sounds equal bilaterally. No accessory muscle use. GASTROINTESTINAL: Abdomen soft, non-tender, nondistended. PEG tube in place. EXTREMITIES: No cyanosis, or edema. Right lateral malleolus is a small 3 mm ulceration with scant yellow possibly purulent drainage, no cellulitis or abscess present. NEUROLOGICAL: Awake, alert, and oriented. Oral secretions. Contractures of hands and feet bilaterally. Only able to weakly wiggle his hands and feet. 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's disease Status: Chronic (2) Hospital acquired PNA ICD Code: J18.9 - Pneumonia, unspecified organism Status: Resolved (3) Sepsis ICD Code: A41.9 - Sepsis, unspecified organism Status: Resolved (4) Encephalopathy ICD Code: G93.40 - Encephalopathy, unspecified Status: Resolved (5) GI bleed ICD Code: K92.2 - Gastrointestinal hemorrhage, unspecified Status: Resolved (6) HCAP (healthcare-associated pneumonia) ICD Code: J18.9 - Pneumonia, unspecified organism Status: Resolved (7) UTI (urinary tract infection) ICD Code: N39.0 - Urinary tract infection, site not specified Status: Resolved (8) Leucocytosis ICD Code: D72.829 - Elevated white blood cell count, unspecified Status: Resolved (9) Fever ICD Code: R50.9 - Fever, unspecified Status: Resolved (10) Effusion of hip joint ICD Code: M25.459 - Effusion, unspecified hip Status: Acute (11) 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 Patient was followed by neurology and has poor prognosis. Aphasic at baseline. Continue Imuran, prednisone - monthly labs to include CMP, CBC EEG shows mild to moderate slowing at times of various depending on the epoch , there was no epileptic activity seen Continue PT/OT Palliative care still following the patient. Still indicating full code and full aggressive measures New fever with tachycardia and leukocytosis - abnormal UA - likely sepsis. Initial lactic acid was 3.3. Patient bolused 2100 mL and will continue normal saline after that, follow-up repeat lactic acid. Will start broad-spectrum antibiotics with vancomycin and cefepime. Likely source is the urinary tract infection. Kowalski catheter changed today. Patient to be transferred to intermediate care for closer monitoring. Bacterial conjunctivitis of left eye - Ofloxacin eye drops ordered. Supportive care. Monitor clinically for improvement. 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 04/26/17 Decreased oral intake and dysphagia on initial presentation Speech therapy evaluated patient. S/P barium swallow. Patient with severe dysphagia. Status post PEG tube. Patient intolerant to bolus feeding Continue TwoCal HN 50ml/hr. Free Water Flushes and additional free water flush with Maury bid. Coccyx decubitus - improving Ankle ulceration - scant drainage culture taken today Wound care nurse is following the patient for management Patient with specialty bed Mood disorder, depression Psychiatry evaluated patient and made recommendations Prozac 40 mg daily Seroquel 25 mg at bedtime Diabetes Glucose continues to be well controlled DVT Prophylaxis: Lovenox, TEDs/SCDs. Records reviewed extensively. Problem Qualifiers (1) GI bleed: (2) UTI (urinary tract infection): (3) Effusion of hip joint: Kathleen Min MD Apr 26, 2017 14:25
[2017-04-26] MEDS: SODIUM CHLOR 0.9% 1000 ML INJ 1,000 ML IV SCH (14:30)
--- NOTE | 2017-04-26 14:40 | RADRPT ---
EXAM DATE/TIME: 04/26/2017 13:12 [facility] COMPARISON: CHEST SINGLE AP, February 04, 2017, 23:21. INDICATIONS : Congestion. MEDICAL HISTORY : Stroke. Cardiovascular disease. SURGICAL HISTORY : None. ENCOUNTER: Subsequent ACUITY: 4 - 6 months PAIN SCORE: Non-responsive. LOCATION: Bilateral chest FINDINGS: There is a poor inspiratory result. Perihilar atelectatic changes are noted bilaterally. The heart is stable. Mild scoliosis of the thoracic spine is noted. CONCLUSION: 1. Poor inspiratory result. 2. Minimal perihilar atelectatic changes bilaterally. 3. Mild scoliosis of the thoracic spine. Tomi Joseph MD on April 26, 2017 at 14:32 Board Certified Radiologist. This report was verified electronically.
[2017-04-26 14:59] LABS: LACTIC ACID SEPSIS PROTOCOL 3.3 mmol/L (0.4-2.0)
[2017-04-26] MEDS: VANCOMYCIN INJ 1,000 MG in SODIUM CHLOR 0.9% 250 ML INJ 250 ML IV SCH (16:27)
[2017-04-26] MEDS: CEFEPIME INJ 2,000 MG in SODIUM CHLORIDE 0.9% INJ 100 ML IV SCH (17:38)
[2017-04-26] MEDS: QUEtiapine FUMARATE 25 MG TAB PO SCH (21:27)
[2017-04-27] VITALS (14 sets, daily range): BP systolic 84–94; BP diastolic 46–72; PULSE 75–98; RESP 14–24; TEMP 97.6–99.2; O2SAT 96–100
[2017-04-27] MEDS: CEFEPIME INJ 2,000 MG in SODIUM CHLORIDE 0.9% INJ 100 ML IV SCH ×4 (01:37→23:40)
[2017-04-27] MEDS: LACTIC ACID (AMMONIUM LACTATE) 12% LOTION 225 GM BTL TOPICAL SCH ×3 (01:37→20:49)
[2017-04-27] MEDS: OFLOXACIN 0.3% OPTH SOLN 5 ML BTL EACH EYE SCH ×5 (03:03→23:42)
[2017-04-27] MEDS: VANCOMYCIN INJ 1,000 MG in SODIUM CHLOR 0.9% 250 ML INJ 250 ML IV SCH ×2 (03:04→15:16)
[2017-04-27] MEDS: SODIUM CHLOR 0.9% 1000 ML INJ 1,000 ML IV SCH ×3 (03:04→23:43)
[2017-04-27 05:25] LABS: AUTOMATED NEUTROPHIL # 19.8 TH/MM3 (1.8-7.7); BASOPHIL # 0.1 TH/MM3 (0-0.2); BASOPHIL % 0.3 % (0.0-2.0); EOSINOPHIL # 0.1 TH/MM3 (0-0.4); EOSINOPHIL % 0.3 % (0.0-4.0); HEMATOCRIT 34.3 % (39.0-51.0); HEMOGLOBIN 11.3 GM/DL (13.0-17.0); LYMPH % 4.9 % (9.0-44.0); MEAN CELL VOLUME 92.6 FL (80.0-100.0); MEAN CORPUSCULAR HEMOGLOBIN 30.4 PG (27.0-34.0); MEAN CORPUSCULAR HGB CONC 32.8 % (32.0-36.0); MEAN PLATELET VOLUME 9.3 FL (7.0-11.0); MONOCYTE # 0.4 TH/MM3 (0-0.9); NEUT % 92.5 % (16.0-70.0); PLATELET COUNT 231 TH/MM3 (150-450); RED BLOOD COUNT 3.71 MIL/MM3 (4.50-5.90); RED CELL DISTRIBUTION WIDTH 15.7 % (11.6-17.2); WHITE BLOOD COUNT 21.4 TH/MM3 (4.0-11.0)
[2017-04-27 05:51] LABS: ALBUMIN 2.3 GM/DL (3.4-5.0); ALKALINE PHOSPHATASE 53 U/L (45-117); ALT (GPT) 24 U/L (12-78); AST (GOT) 7 U/L (15-37); BICARBONATE 23.9 MEQ/L (21.0-32.0); BLOOD UREA NITROGEN 18 MG/DL (7-18); CALCIUM 8.2 MG/DL (8.5-10.1); CHLORIDE 115 MEQ/L (98-107); GLOMERULAR FILTRATION RATE 177 ML/MIN (>89); GLUCOSE,RANDOM 78 MG/DL (74-106); SODIUM (NA) 147 MEQ/L (136-145); TOTAL BILIRUBIN ADULT 0.4 MG/DL (0.2-1.0); TOTAL PROTEIN 5.5 GM/DL (6.4-8.2)
[2017-04-27] MEDS: azaTHIOprine 50 MG TAB PEG SCH ×2 (06:34→17:23)
[2017-04-27] MEDS: FLUoxetine HCL LIQUID 20 MG/5 ML CUP PEG SCH (08:36)
[2017-04-27] MEDS: LANSOPRAZOLE SOLUTAB 30 MG TAB PEG SCH ×2 (08:36→20:49)
[2017-04-27] MEDS: LACTOBACILLUS ACIDOPHILUS TAB PEG SCH ×2 (08:36→20:48)
[2017-04-27] MEDS: JUVEN POWDER 1 PACK G-TUBE SCH ×3 (08:37→21:19)
[2017-04-27] MEDS: predniSONE 20 MG TAB PEG SCH (08:37)
[2017-04-27] MEDS: SENNOSIDES SYRUP 8.8 MG/5 ML CUP PEG SCH (08:38)
[2017-04-27] MEDS: ENOXAPARIN SODIUM 40 MG/0.4 ML SYRINGE SQ SCH (08:39)
--- NOTE | 2017-04-27 11:35 | HHI.PR ---
Subjective Remarks Blood pressure was running slightly low overnight however urine output is good and lactic acid trended down to normal. Afebrile. Objective Vitals Vital Signs Date Time Temp Pulse Resp B/P (MAP) Pulse Ox O2 Delivery O2 Flow Rate FiO2 04/27/17 09:00 94 16 93/70 (78) 96 04/27/17 08:00 92 04/27/17 08:00 98.3 93 24 93/70 (78) 04/27/17 07:55 96 Nasal Cannula 3.00 04/27/17 04:00 97.9 90 14 84/72 (76) 100 04/27/17 02:00 84 04/27/17 02:00 86 16 92/56 (68) 99 04/27/17 00:00 98.0 82 15 90/46 (61) 98 04/27/17 00:00 82 04/26/17 23:08 84 16 86/65 (72) 98 04/26/17 22:00 84 04/26/17 22:00 84 14 103/64 (77) 100 04/26/17 21:26 96 Nasal Cannula 3.00 04/26/17 21:20 86 14 114/72 (86) 97 04/26/17 20:49 86 14 111/84 (93) 96 04/26/17 20:00 97.5 88 17 95/68 (77) 95 04/26/17 20:00 88 04/26/17 19:13 90 16 111/66 (81) 89 04/26/17 15:15 106 I/O 04/26/17 04/26/17 04/26/17 04/27/17 04/27/17 04/27/17 07:00 15:00 23:00 07:00 15:00 23:00 Intake Total 4074 ml 1350 ml Output Total 600 ml 100 ml Balance -600 ml 3974 ml 1350 ml IV Total 4074 ml 1350 ml Output Urine Total 600 ml 100 ml # Bowel Movements 0 1 Result Diagram: 04/27/1744904/27/17 045 Objective Remarks GENERAL: Middle-aged Afro-[place]amoan male patient who is bedbound. SKIN: Warm and dry. HEAD: Normocephalic. EYES: No scleral icterus. No injection or drainage. NECK: Supple, trachea midline. No JVD or lymphadenopathy. CARDIOVASCULAR: Regular rate and rhythm without murmurs, gallops, or rubs. RESPIRATORY: Breath sounds equal bilaterally. No accessory muscle use. GASTROINTESTINAL: Abdomen soft, non-tender, nondistended. PEG tube in place. EXTREMITIES: No cyanosis, or edema. Right lateral malleolus is a small 3 mm ulceration with scant yellow possibly purulent drainage, no cellulitis or abscess present. NEUROLOGICAL: Awake, alert, and oriented. Oral secretions. Contractures of hands and feet bilaterally. Only able to weakly wiggle his hands and feet. 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's disease Status: Chronic (2) Hospital acquired PNA ICD Code: J18.9 - Pneumonia, unspecified organism Status: Resolved (3) Sepsis ICD Code: A41.9 - Sepsis, unspecified organism Status: Resolved (4) Encephalopathy ICD Code: G93.40 - Encephalopathy, unspecified Status: Resolved (5) GI bleed ICD Code: K92.2 - Gastrointestinal hemorrhage, unspecified Status: Resolved (6) HCAP (healthcare-associated pneumonia) ICD Code: J18.9 - Pneumonia, unspecified organism Status: Resolved (7) UTI (urinary tract infection) ICD Code: N39.0 - Urinary tract infection, site not specified Status: Resolved (8) Leucocytosis ICD Code: D72.829 - Elevated white blood cell count, unspecified Status: Resolved (9) Fever ICD Code: R50.9 - Fever, unspecified Status: Resolved (10) Effusion of hip joint ICD Code: M25.459 - Effusion, unspecified hip Status: Acute (11) 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 Patient was followed by neurology and has poor prognosis. Aphasic at baseline. Continue Imuran, prednisone - monthly labs to include CMP, CBC EEG shows mild to moderate slowing at times of various depending on the epoch , there was no epileptic activity seen Continue PT/OT Palliative care still following the patient. Still indicating full code and full aggressive measures New fever with tachycardia and leukocytosis - abnormal UA - likely sepsis. Initial lactic acid was 3.3, repeat within normal limits. Continue IV fluids. Continue vancomycin and cefepime. Chest x-ray -04/26. Likely source is the urinary tract infection. Kowalski catheter changed 04/26. Continue intermediate care for closer monitoring. Bacterial conjunctivitis of left eye - Ofloxacin eye drops ordered. Supportive care. Monitor clinically for improvement. 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 04/26/17 Decreased oral intake and dysphagia on initial presentation Speech therapy evaluated patient. S/P barium swallow. Patient with severe dysphagia. Status post PEG tube. Patient intolerant to bolus feeding Continue TwoCal HN 50ml/hr. Free Water Flushes and additional free water flush with Maury bid. Coccyx decubitus - improving Ankle ulceration - scant drainage culture taken today Wound care nurse is following the patient for management Patient with specialty bed Mood disorder, depression Psychiatry evaluated patient and made recommendations Prozac 40 mg daily Seroquel 25 mg at bedtime Diabetes Glucose continues to be well controlled DVT Prophylaxis: Lovenox, TEDs/SCDs. Problem Qualifiers (1) GI bleed: (2) UTI (urinary tract infection): (3) Effusion of hip joint: Kathleen Min MD Apr 27, 2017 11:35
[2017-04-27] MEDS: QUEtiapine FUMARATE 25 MG TAB PO SCH (20:48)
[2017-04-27] MEDS: ARTIFICIAL TEARS OPTH SOLN 15 ML BTL EACH EYE PRN (20:48)
[2017-04-27] MEDS: HYOSCYAMINE SOLN 0.125 MG/ML 15 ML BTL PEG PRN (21:04)
[2017-04-28] VITALS: BP 96/73; PULSE 89; RESP 16; TEMP 98.5; O2SAT 98
[2017-04-28] MEDS: VANCOMYCIN INJ 1,000 MG in SODIUM CHLOR 0.9% 250 ML INJ 250 ML IV SCH ×2 (02:45→17:25)
[2017-04-28 04:00] VITALS: BP 92/67; PULSE 80; RESP 16; TEMP 98.4; O2SAT 95
[2017-04-28] MEDS: OFLOXACIN 0.3% OPTH SOLN 5 ML BTL EACH EYE SCH ×4 (05:43→23:34)
[2017-04-28] MEDS: azaTHIOprine 50 MG TAB PEG SCH ×2 (05:43→17:24)
[2017-04-28 07:30] VITALS: O2SAT 95
[2017-04-28] MEDS: CEFEPIME INJ 2,000 MG in SODIUM CHLORIDE 0.9% INJ 100 ML IV SCH ×3 (08:00→23:34)
[2017-04-28] MEDS: JUVEN POWDER 1 PACK G-TUBE SCH ×2 (09:00→23:30)
--- NOTE | 2017-04-28 09:41 | HHI.HCPN ---
Pt has had increase in leukocytosis. Urine culture show psuedomonas species. Wound culture pending. Pt was seen by palliative care earlier on 04/20, at at that time there were no change in goals of care. Pt would become tearful during conversations, and pt' s HCS// [facility] continue aggressive treatment and want to transport him back to [place]. I placed a call with Patricia Lebron today, and she indicate no change in goals of care, continue aggressive care. Sekou Chen MD Apr 28, 2017 09:41
[2017-04-28] MEDS: LACTIC ACID (AMMONIUM LACTATE) 12% LOTION 225 GM BTL TOPICAL SCH ×2 (10:56→21:00)
[2017-04-28] MEDS: ENOXAPARIN SODIUM 40 MG/0.4 ML SYRINGE SQ SCH (10:56)
[2017-04-28] MEDS: LACTOBACILLUS ACIDOPHILUS TAB PEG SCH ×2 (10:57→21:00)
[2017-04-28] MEDS: FLUoxetine HCL LIQUID 20 MG/5 ML CUP PEG SCH (10:57)
[2017-04-28] MEDS: SENNOSIDES SYRUP 8.8 MG/5 ML CUP PEG SCH (10:57)
[2017-04-28] MEDS: predniSONE 20 MG TAB PEG SCH (10:57)
[2017-04-28] MEDS: LANSOPRAZOLE SOLUTAB 30 MG TAB PEG SCH ×2 (10:57→21:00)
--- NOTE | 2017-04-28 12:33 | HHI.PR ---
Subjective Remarks Patient has been stable, blood pressure stable good urine output, afebrile. Patient denies pain or discomfort. Discussed with ENVIRONMENTAL PERMITTING SPECIALIST. Objective Vitals Vital Signs Date Time Temp Pulse Resp B/P (MAP) Pulse Ox O2 Delivery O2 Flow Rate FiO2 04/28/17 07:30 95 Nasal Cannula 3.00 04/28/17 04:00 98.4 80 16 92/67 (75) 95 04/28/17 00:00 98.5 89 16 96/73 (81) 98 04/27/17 23:00 79 04/27/17 21:27 Nasal Cannula 2.00 04/27/17 20:00 97.6 75 16 92/57 (69) 98 04/27/17 16:47 98.3 04/27/17 16:15 82 20 97 04/27/17 16:00 84 15 97 04/27/17 16:00 84 15 86/66 (73) 97 04/27/17 15:00 84 04/27/17 12:49 99.2 I/O 04/27/17 04/27/17 04/27/17 04/28/17 04/28/17 04/28/17 07:00 15:00 23:00 07:00 15:00 23:00 Intake Total 1350 ml 100 ml 1833 ml 1927 ml Output Total 1300 ml 2400 ml Balance 1350 ml 100 ml 533 ml -473 ml IV Total 1350 ml 100 ml 833 ml 971 ml Tube Feeding 450 ml 556 ml Tube Irrigant 550 ml 400 ml Output Urine Total 1300 ml 2400 ml # Bowel Movements 1 Result Diagram: 04/27/1744904/27/17449 Objective Remarks GENERAL: Middle-aged Afro-Lithuanian male patient who is bedbound. SKIN: Warm and dry. HEAD: Normocephalic. EYES: No scleral icterus. No injection or drainage. NECK: Supple, trachea midline. No JVD or lymphadenopathy. CARDIOVASCULAR: Regular rate and rhythm without murmurs, gallops, or rubs. RESPIRATORY: Breath sounds equal bilaterally. No accessory muscle use. GASTROINTESTINAL: Abdomen soft, non-tender, nondistended. PEG tube in place. EXTREMITIES: No cyanosis, or edema. Right lateral malleolus is a small 3 mm ulceration with scant yellow possibly purulent drainage, no cellulitis or abscess present. NEUROLOGICAL: Awake, alert, and oriented. Oral secretions. Contractures of hands and feet bilaterally. Only able to weakly wiggle his hands and feet. 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's disease Status: Chronic (2) Hospital acquired PNA ICD Code: J18.9 - Pneumonia, unspecified organism Status: Resolved (3) Sepsis ICD Code: A41.9 - Sepsis, unspecified organism Status: Resolved (4) Encephalopathy ICD Code: G93.40 - Encephalopathy, unspecified Status: Resolved (5) GI bleed ICD Code: K92.2 - Gastrointestinal hemorrhage, unspecified Status: Resolved (6) HCAP (healthcare-associated pneumonia) ICD Code: J18.9 - Pneumonia, unspecified organism Status: Resolved (7) UTI (urinary tract infection) ICD Code: N39.0 - Urinary tract infection, site not specified Status: Resolved (8) Leucocytosis ICD Code: D72.829 - Elevated white blood cell count, unspecified Status: Resolved (9) Fever ICD Code: R50.9 - Fever, unspecified Status: Resolved (10) Effusion of hip joint ICD Code: M25.459 - Effusion, unspecified hip Status: Acute (11) 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 Patient was followed by neurology and has poor prognosis. Aphasic at baseline. Continue Imuran, prednisone - monthly labs to include CMP, CBC EEG shows mild to moderate slowing at times of various depending on the epoch , there was no epileptic activity seen Continue PT/OT Palliative care still following the patient. Still indicating full code and full aggressive measures New fever with tachycardia and leukocytosis - abnormal UA - likely sepsis due to UA. Initial lactic acid was 3.3, repeat within normal limits. Continue IV fluids. Continue vancomycin and cefepime. Chest x-ray -04/26. Likely source is the urinary tract infection. Urine culture growing greater than 100 K pseudomonas aeruginosa pansensitive and 50 75,000 group D enterococcus. Kowalski catheter changed 04/26. Patient has been stable can transfer to [facility] floor. We'll de-escalate antibiotics based on urine culture results. Blood cultures are negative at 48 hours. Bacterial conjunctivitis of left eye - Ofloxacin eye drops ordered. Supportive care. Monitor clinically for improvement. 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 04/26/17 Decreased oral intake and dysphagia on initial presentation Speech therapy evaluated patient. S/P barium swallow. Patient with severe dysphagia. Status post PEG tube. Patient intolerant to bolus feeding Continue TwoCal HN 50ml/hr. Free Water Flushes and additional free water flush with Maury bid. Coccyx decubitus - improving Ankle ulceration - scant drainage culture taken today Wound care nurse is following the patient for management Patient with specialty bed Mood disorder, depression Psychiatry evaluated patient and made recommendations Prozac 40 mg daily Seroquel 25 mg at bedtime Diabetes Glucose continues to be well controlled DVT Prophylaxis: Lovenox, TEDs/SCDs. Problem Qualifiers (1) GI bleed: (2) UTI (urinary tract infection): (3) Effusion of hip joint: Kathleen Min MD Apr 28, 2017 12:33
[2017-04-28] MEDS: SODIUM CHLOR 0.9% 1000 ML INJ 1,000 ML IV SCH (12:40)
[2017-04-28 20:10] VITALS: O2SAT 94
[2017-04-28 20:30] VITALS: BP 96/72; PULSE 78; RESP 20; TEMP 99.8; O2SAT 95
[2017-04-28 21:00] VITALS: PULSE 74
[2017-04-28] MEDS: QUEtiapine FUMARATE 25 MG TAB PO SCH (21:00)
[2017-04-28] MEDS: ARTIFICIAL TEARS OPTH SOLN 15 ML BTL EACH EYE PRN (23:31)
[2017-04-29] VITALS (20 sets, daily range): BP systolic 102–142; BP diastolic 72–90; PULSE 76–93; RESP 12–22; TEMP 97.7–99.6; O2SAT 91–97
[2017-04-29] MEDS: SODIUM CHLOR 0.9% 1000 ML INJ 1,000 ML IV SCH (02:43)
[2017-04-29] MEDS: VANCOMYCIN INJ 1,000 MG in SODIUM CHLOR 0.9% 250 ML INJ 250 ML IV SCH (04:34)
[2017-04-29 06:00] LABS: AUTOMATED NEUTROPHIL # 7.5 TH/MM3 (1.8-7.7); BASOPHIL % 0.3 % (0.0-2.0); EOSINOPHIL % 0.2 % (0.0-4.0); HEMOGLOBIN 11.1 GM/DL (13.0-17.0); LYMPH % 11.9 % (9.0-44.0); LYMPHOCYTE # 1.1 TH/MM3 (1.0-4.8); MEAN CORPUSCULAR HEMOGLOBIN 29.1 PG (27.0-34.0); MEAN CORPUSCULAR HGB CONC 31.6 % (32.0-36.0); MEAN PLATELET VOLUME 9.1 FL (7.0-11.0); MONO % 4.6 % (0.0-8.0); MONOCYTE # 0.4 TH/MM3 (0-0.9); PLATELET COUNT 243 TH/MM3 (150-450); RED CELL DISTRIBUTION WIDTH 15.6 % (11.6-17.2)
[2017-04-29] MEDS: OFLOXACIN 0.3% OPTH SOLN 5 ML BTL EACH EYE SCH ×4 (06:00→22:36)
[2017-04-29 06:19] LABS: CALCIUM 8.3 MG/DL (8.5-10.1)
[2017-04-29 06:20] LABS: BICARBONATE 30.3 MEQ/L (21.0-32.0)
[2017-04-29 06:23] LABS: CREATININE 0.52 MG/DL (0.60-1.30)
[2017-04-29] MEDS: ARTIFICIAL TEARS OPTH SOLN 15 ML BTL EACH EYE PRN ×2 (06:26→06:29)
[2017-04-29] MEDS: azaTHIOprine 50 MG TAB PEG SCH ×2 (06:29→17:18)
[2017-04-29] MEDS: FLUoxetine HCL LIQUID 20 MG/5 ML CUP PEG SCH (09:39)
[2017-04-29] MEDS: CEFEPIME INJ 2,000 MG in SODIUM CHLORIDE 0.9% INJ 100 ML IV SCH (09:39)
[2017-04-29] MEDS: JUVEN POWDER 1 PACK G-TUBE SCH ×2 (09:39→22:35)
[2017-04-29] MEDS: LACTOBACILLUS ACIDOPHILUS TAB PEG SCH ×2 (09:39→22:35)
[2017-04-29] MEDS: LACTIC ACID (AMMONIUM LACTATE) 12% LOTION 225 GM BTL TOPICAL SCH ×2 (09:40→22:36)
[2017-04-29] MEDS: ENOXAPARIN SODIUM 40 MG/0.4 ML SYRINGE SQ SCH (09:40)
[2017-04-29] MEDS: SENNOSIDES SYRUP 8.8 MG/5 ML CUP PEG SCH (09:40)
[2017-04-29] MEDS: predniSONE 20 MG TAB PEG SCH (09:41)
[2017-04-29] MEDS: LANSOPRAZOLE SOLUTAB 30 MG TAB PEG SCH ×2 (09:41→22:35)
[2017-04-29] MEDS: LEVOFLOXACIN 750 MG PREMIX INJ 150 ML IV SCH (12:12)
--- NOTE | 2017-04-29 15:39 | HHI.PR ---
Subjective Remarks Follow up Neuro-Bechet's syndrome. Patient seen and examined, lying in bed awake. Patient tracking with eyes. Nodding appropriately. Denies any pain. TMAX 99.8. Positive BM. Objective Vitals Vital Signs Date Time Temp Pulse Resp B/P (MAP) Pulse Ox O2 Delivery O2 Flow Rate FiO2 04/29/17 14:01 84 04/29/17 13:01 93 04/29/17 12:01 84 04/29/17 12:00 99.3 84 14 142/72 (95) 92 04/29/17 11:01 83 04/29/17 10:01 85 04/29/17 09:01 87 04/29/17 08:01 82 04/29/17 08:00 99.2 86 22 122/81 (95) 96 04/29/17 07:16 78 04/29/17 04:26 98.8 76 18 108/90 (96) 97 04/29/17 00:15 98.5 87 20 102/75 (84) 94 04/28/17 21:00 74 04/28/17 20:30 99.8 78 20 96/72 (80) 95 04/28/17 20:10 94 Nasal Cannula 3.00 I/O 04/28/17 04/28/17 04/28/17 04/29/17 04/29/17 04/29/17 07:00 15:00 23:00 07:00 15:00 23:00 Intake Total 1927 ml 0 ml 3240 ml 683 ml Output Total 2400 ml 750 ml 2750 ml Balance -473 ml -750 ml 490 ml 683 ml Intake Oral 0 ml IV Total 971 ml 1500 ml 683 ml Tube Feeding 556 ml 1200 ml Tube Irrigant 400 ml Other 540 ml Output Urine Total 2400 ml 750 ml 2750 ml # Bowel Movements 0 1 Result Diagram: 04/29/17 0535 04/29/17 0535 Imaging Last Impressions Chest X-Ray 04/26/17 0000 Signed Impressions: Service Date/Time: Wednesday, April 26, 2017 13:12 - CONCLUSION: 1. Poor inspiratory result. 2. Minimal perihilar atelectatic changes bilaterally. 3. Mild scoliosis of the thoracic spine. Tomi Joseph MD Hip Aspiration/Injection 10/08/16 0000 Signed Impressions: Service Date/Time: Tuesday, October 11, 2016 13:41 - CONCLUSION: Uncomplicated aspiration as above. Minimal fluid on the right. No identifiable fluid on the left Clayton Max MD Lower Extremity Ultrasound 10/06/16 Signed Impressions: Service Date/Time: September 17:29 - CONCLUSION: Normal examination. Josafat Meyer MD CT Angiography 10/06/16 Signed Impressions: Service Date/Time: September 20:31 - CONCLUSION: Minimal right upper lobe infiltrate and basilar atelectasis. No evidence of pulmonary embolism.. Josafat Meyer MD Abdomen/Pelvis CT 10/06/16 Signed Impressions: Service Date/Time: September 20:31 - CONCLUSION: No evidence of pelvic abscess. Josafat Meyer MD Upper Extremity Ultrasound 09/28/16 Signed Impressions: Service Date/Time: Wednesday, September 28, 2016 19:15 - CONCLUSION: 1. Occlusive superficial thrombosis in the left cephalic vein near the antecubital fossa. No deep venous thrombosis. Sumit Bourgeois MD Renal Ultrasound 08/28/16 Signed Impressions: Service Date/Time: Sunday, August 28, 2016 20:03 - CONCLUSION: Mild increased echotexture of both kidneys. Baldev Vu MD Lumbar Puncture Fluoroscopy 08/17/16 0000 Signed Impressions: Service Date/Time: Wednesday, August 17, 2016 12:26 - CONCLUSION: Uncomplicated fluoroscopically guided lumbar puncture. Vishal Beckford Jr., MD Brain MRI 08/17/16 Signed Impressions: Service Date/Time: Wednesday, August 17, 2016 13:28 - CONCLUSION: Remote long-standing areas of abnormality in the brainstem and middle cerebellar peduncle consistent with remote infarcts or contusion. No acute intracranial abnormality. Chacho Bright MD Abdomen X-Ray 08/17/16 0000 Signed Impressions: Service Date/Time: Wednesday, August 17, 2016 13:02 - CONCLUSION: No evidence of obstruction. No MRI incompatible foreign body is identified. Chacho Bright MD Head CT 08/16/16 0000 Signed Impressions: Service Date/Time: Tuesday, August 16, 2016 09:55 - CONCLUSION: Chronic ischemic changes left frontal lobe possibly from evidence of previous ventriculostomy placement, unchanged. No acute intracranial abnormality. Gen Potter MD Modified Barium Swallow 08/15/16 0000 Signed Impressions: Service Date/Time: Monday, August 15, 2016 00:00 - CONCLUSION: See report above and speech pathology report Chacho Bright MD Objective Remarks GENERAL: Well-developed cachectic and contracted male patient in NAD. Awake and alert, nonverbal. Nodding appropriately. SKIN: Warm and dry. No rash. HEENT: Normocephalic. Atraumatic. Pupils equal and round. No scleral icterus. No injection or drainage. No nasal bleeding or discharge. Mucous membranes pink and moist. NECK: Supple. Trachea midline. CARDIOVASCULAR: Regular rate and rhythm. S1, S2 noted. No murmur appreciated. RESPIRATORY: No accessory muscle use. Clear to auscultation. Breath sounds equal bilaterally. GASTROINTESTINAL: Abdomen soft, non-tender, nondistended. Normoactive bowel sounds x4. No guarding. PEG tube noted, no erythema or drainage from site, c/d/ i. MUSCULOSKELETAL: No obvious deformities. Extremities without clubbing, cyanosis , or edema. 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's disease Status: Chronic (2) Hospital acquired PNA ICD Code: J18.9 - Pneumonia, unspecified organism Status: Resolved (3) Sepsis ICD Code: A41.9 - Sepsis, unspecified organism Status: Resolved (4) Encephalopathy ICD Code: G93.40 - Encephalopathy, unspecified Status: Resolved (5) GI bleed ICD Code: K92.2 - Gastrointestinal hemorrhage, unspecified Status: Resolved (6) HCAP (healthcare-associated pneumonia) ICD Code: J18.9 - Pneumonia, unspecified organism Status: Resolved (7) UTI (urinary tract infection) ICD Code: N39.0 - Urinary tract infection, site not specified Status: Resolved (8) Leucocytosis ICD Code: D72.829 - Elevated white blood cell count, unspecified Status: Resolved (9) Fever ICD Code: R50.9 - Fever, unspecified Status: Resolved (10) Effusion of hip joint ICD Code: M25.459 - Effusion, unspecified hip Status: Acute (11) 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 Patient was followed by neurology. Aphasic at baseline. Continue Imuran, prednisone EEG shows mild to moderate slowing at times of various depending on the epoch , there was no epileptic activity seen Continue PT/OT Palliative care still following the patient. Still indicating full code and full aggressive measures. Sepsis (fever, tachycardia, lactic acid) suspect secondary to UTI - Urine culture growing pseudomonas aeruginoas and Enterococcus Faecalis. - Initial lactic acid was 3.3, repeat within normal limits. DC IV fluids. Status post vancomycin and cefepime, started on Vanco IV. Kowalski catheter changed 04/26. - Patient has been stable can transfer to [facility] floor. Blood cultures are negative at 48 hours. Bacterial conjunctivitis of left eye, improving. - Ofloxacin eye drops ordered. Supportive care. Monitor clinically for improvement. 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 03/30/17 Decreased oral intake and dysphagia on initial presentation Speech therapy evaluated patient. S/P barium swallow. Patient with severe dysphagia. GI was consulted and PEG tube was placed. Patient was intolerant to bolus feeding Dietary reconsulted and made recommendations. tube feeding continued, TwoCal HN, goal rate 50ml/hr. Free Water Flushes and additional free water flush with Maury bid. Coccyx decubitus Ankle ulceration Wound care nurse is following the patient for management Patient with specialty bed Mood disorder, depression Psychiatry evaluated patient and made recommendations Prozac 40 mg daily Seroquel 25 mg at bedtime Diabetes Glucose continues to be well controlled DVT Prophylaxis: Lovenox, TEDs/SCDs. Records reviewed extensively. Case management discharge planning. Discharge Planning Case management assisting. Problem Qualifiers (1) GI bleed: (2) UTI (urinary tract infection): (3) Effusion of hip joint: Dotty Pacheco Apr 29, 2017 15:39
[2017-04-29] MEDS: QUEtiapine FUMARATE 25 MG TAB PO SCH (22:35)
[2017-04-30] VITALS (9 sets, daily range): BP systolic 101–128; BP diastolic 64–84; PULSE 74–84; RESP 12–22; TEMP 97.9–98.6; O2SAT 93–99
[2017-04-30] MEDS: LACTOBACILLUS ACIDOPHILUS TAB PEG SCH ×2 (09:34→20:53)
[2017-04-30] MEDS: ENOXAPARIN SODIUM 40 MG/0.4 ML SYRINGE SQ SCH (09:34)
[2017-04-30] MEDS: FLUoxetine HCL LIQUID 20 MG/5 ML CUP PEG SCH (09:34)
[2017-04-30] MEDS: predniSONE 20 MG TAB PEG SCH (09:35)
[2017-04-30] MEDS: SENNOSIDES SYRUP 8.8 MG/5 ML CUP PEG SCH (09:35)
[2017-04-30] MEDS: LACTIC ACID (AMMONIUM LACTATE) 12% LOTION 225 GM BTL TOPICAL SCH ×2 (09:36→21:00)
[2017-04-30] MEDS: JUVEN POWDER 1 PACK G-TUBE SCH ×2 (09:36→20:55)
[2017-04-30] MEDS: LANSOPRAZOLE SOLUTAB 30 MG TAB PEG SCH ×2 (09:36→20:52)
--- NOTE | 2017-04-30 11:25 | HHI.PR ---
Subjective Remarks Follow up Neuro-Bechet's syndrome. Patient seen and examined lying in bed awake. Nodding appropriately. Denies any new complaints, feels better. Appears to be pointing to his eye when questioned he nods yes to blurry vision. MD aware and ophthalmology has see patient. Supportive care. Denies any chest pain , headache, nausea, vomiting or abdominal pain. Objective Vitals Vital Signs Date Time Temp Pulse Resp B/P (MAP) Pulse Ox O2 Delivery O2 Flow Rate FiO2 04/30/17 08:00 98.4 80 14 107/84 (92) 94 04/30/17 05:12 84 04/30/17 04:00 98.5 75 22 104/70 (81) 96 04/30/17 00:25 79 04/30/17 00:20 Nasal Cannula 2.00 04/30/17 00:00 98.6 75 22 101/64 (76) 93 04/29/17 20:50 93 21 04/29/17 20:00 77 04/29/17 20:00 98.8 85 14 118/77 (91) 93 04/29/17 18:01 94 04/29/17 18:01 77 04/29/17 17:26 97.7 04/29/17 17:08 80 04/29/17 16:01 82 04/29/17 16:00 99.6 82 12 122/82 (95) 91 04/29/17 15:01 86 04/29/17 14:01 84 04/29/17 13:01 93 04/29/17 12:01 84 04/29/17 12:00 99.3 84 14 142/72 (95) 92 I/O 04/29/17 04/29/17 04/29/17 04/30/17 04/30/17 04/30/17 07:00 15:00 23:00 07:00 15:00 23:00 Intake Total 3240 ml 833 ml 1362 ml 750 ml Output Total 2750 ml 2350 ml 1150 ml Balance 490 ml 833 ml -988 ml -400 ml Intake Oral 0 ml IV Total 1500 ml 833 ml Tube Feeding 1200 ml 762 ml 550 ml Other 540 ml 600 ml 200 ml Output Urine Total 2750 ml 2350 ml 1150 ml # Bowel Movements 1 2 1 Result Diagram: 04/29/17 0535 04/29/17 0535 Imaging Last Impressions Chest X-Ray 04/26/17 0000 Signed Impressions: Service Date/Time: Wednesday, April 26, 2017 13:12 - CONCLUSION: 1. Poor inspiratory result. 2. Minimal perihilar atelectatic changes bilaterally. 3. Mild scoliosis of the thoracic spine. Tomi Joseph MD Hip Aspiration/Injection 10/08/16 0000 Signed Impressions: Service Date/Time: Tuesday, October 11, 2016 13:41 - CONCLUSION: Uncomplicated aspiration as above. Minimal fluid on the right. No identifiable fluid on the left Clayton Max MD Lower Extremity Ultrasound 10/06/16 0000 Signed Impressions: Service Date/Time: September 17:29 - CONCLUSION: Normal examination. Josafat Meyer MD CT Angiography 10/06/16 0000 Signed Impressions: Service Date/Time: September 20:31 - CONCLUSION: Minimal right upper lobe infiltrate and basilar atelectasis. No evidence of pulmonary embolism.. Josafat Meyer MD Abdomen/Pelvis CT 10/06/16 0000 Signed Impressions: Service Date/Time: September 20:31 - CONCLUSION: No evidence of pelvic abscess. Josafat Meyer MD Upper Extremity Ultrasound 09/28/16 0000 Signed Impressions: Service Date/Time: Wednesday, September 28, 2016 19:15 - CONCLUSION: 1. Occlusive superficial thrombosis in the left cephalic vein near the antecubital fossa. No deep venous thrombosis. Sumit Bourgeois MD Renal Ultrasound 08/28/16 0000 Signed Impressions: Service Date/Time: Sunday, August 28, 2016 20:03 - CONCLUSION: Mild increased echotexture of both kidneys. Baldev Vu MD Lumbar Puncture Fluoroscopy 08/17/16 0000 Signed Impressions: Service Date/Time: Wednesday, August 17, 2016 12:26 - CONCLUSION: Uncomplicated fluoroscopically guided lumbar puncture. Vishal Beckford Jr., MD Brain MRI 08/17/16 0000 Signed Impressions: Service Date/Time: Wednesday, August 17, 2016 13:28 - CONCLUSION: Remote long-standing areas of abnormality in the brainstem and middle cerebellar peduncle consistent with remote infarcts or contusion. No acute intracranial abnormality. Chacho Bright MD Abdomen X-Ray 08/17/16 0000 Signed Impressions: Service Date/Time: Wednesday, August 17, 2016 13:02 - CONCLUSION: No evidence of obstruction. No MRI incompatible foreign body is identified. Chacho Bright MD Head CT 08/16/16 0000 Signed Impressions: Service Date/Time: Tuesday, August 16, 2016 09:55 - CONCLUSION: Chronic ischemic changes left frontal lobe possibly from evidence of previous ventriculostomy placement, unchanged. No acute intracranial abnormality. Gen Potter MD Modified Barium Swallow 08/15/16 0000 Signed Impressions: Service Date/Time: Monday, August 15, 2016 00:00 - CONCLUSION: See report above and speech pathology report Chacho Bright MD Objective Remarks GENERAL: Well-developed cachectic and contracted male patient in NAD. Awake and alert, nonverbal. Nodding appropriately. SKIN: Warm and dry. No rash. HEENT: Normocephalic. Atraumatic. Pupils equal and round. No scleral icterus. No injection or drainage. No nasal bleeding or discharge. Mucous membranes pink and moist. NECK: Supple. Trachea midline. CARDIOVASCULAR: Regular rate and rhythm. S1, S2 noted. No murmur appreciated. RESPIRATORY: No accessory muscle use. Clear to auscultation. Breath sounds equal bilaterally. GASTROINTESTINAL: Abdomen soft, non-tender, nondistended. Normoactive bowel sounds x4. No guarding. PEG tube noted, no erythema or drainage from site, c/d/ i. MUSCULOSKELETAL: No obvious deformities. Extremities without clubbing, cyanosis , or edema. 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's disease Status: Chronic (2) Hospital acquired PNA ICD Code: J18.9 - Pneumonia, unspecified organism Status: Resolved (3) Sepsis ICD Code: A41.9 - Sepsis, unspecified organism Status: Resolved (4) Encephalopathy ICD Code: G93.40 - Encephalopathy, unspecified Status: Resolved (5) GI bleed ICD Code: K92.2 - Gastrointestinal hemorrhage, unspecified Status: Resolved (6) HCAP (healthcare-associated pneumonia) ICD Code: J18.9 - Pneumonia, unspecified organism Status: Resolved (7) UTI (urinary tract infection) ICD Code: N39.0 - Urinary tract infection, site not specified Status: Resolved (8) Leucocytosis ICD Code: D72.829 - Elevated white blood cell count, unspecified Status: Resolved (9) Fever ICD Code: R50.9 - Fever, unspecified Status: Resolved (10) Effusion of hip joint ICD Code: M25.459 - Effusion, unspecified hip Status: Acute (11) 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 Patient was followed by neurology. Aphasic at baseline. Continue Imuran, prednisone EEG shows mild to moderate slowing at times of various depending on the epoch , there was no epileptic activity seen Continue PT/OT Palliative care still following the patient. Still indicating full code and full aggressive measures. Sepsis (fever, tachycardia, lactic acid) suspect secondary to UTI - Urine culture growing pseudomonas aeruginoas and Enterococcus Faecalis. - Initial lactic acid was 3.3, repeat within normal limits. DC IV fluids. Status post vancomycin and cefepime, started on Levaquin IV. Kowalski catheter changed 04/26. - Patient has been stable can transfer to [facility] floor. Blood cultures are negative at 48 hours. - Will continue Levaquin today 04/30 and tomorrow 05/01, recheck UA tomorrow, if negative will stop antibiotics. Continue to follow. Bacterial conjunctivitis of left eye, improving. - Ofloxacin eye drops ordered. Supportive care. Monitor clinically for improvement. 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 04/26/17 Decreased oral intake and dysphagia on initial presentation Speech therapy evaluated patient. S/P barium swallow. Patient with severe dysphagia. GI was consulted and PEG tube was placed. Patient was intolerant to bolus feeding Dietary reconsulted and made recommendations. tube feeding continued, TwoCal HN, goal rate 50ml/hr. Free Water Flushes and additional free water flush with Maury bid. Coccyx decubitus Ankle ulceration Wound care nurse is following the patient for management Patient with specialty bed Mood disorder, depression Psychiatry evaluated patient and made recommendations Prozac 40 mg daily Seroquel 25 mg at bedtime Diabetes Glucose continues to be well controlled DVT Prophylaxis: Lovenox, TEDs/SCDs. Records reviewed extensively. Case management discharge planning. Discharge Planning Case management assisting. Problem Qualifiers (1) GI bleed: (2) UTI (urinary tract infection): (3) Effusion of hip joint: Dotty Pacheco Apr 30, 2017 11:25
[2017-04-30] MEDS: azaTHIOprine 50 MG TAB PEG SCH (17:54)
[2017-04-30] MEDS: QUEtiapine FUMARATE 25 MG TAB PO SCH (20:52)
[2017-05-01 00:34] VITALS: BP 118/75; PULSE 78; RESP 21; TEMP 98.7; O2SAT 98
[2017-05-01] MEDS: azaTHIOprine 50 MG TAB PEG SCH ×2 (06:00→17:01)
[2017-05-01 08:00] VITALS: BP 103/77; PULSE 96; RESP 22; TEMP 98.2; O2SAT 96
[2017-05-01] MEDS: LACTOBACILLUS ACIDOPHILUS TAB PEG SCH ×2 (08:46→21:17)
[2017-05-01] MEDS: predniSONE 20 MG TAB PEG SCH (08:46)
[2017-05-01] MEDS: ENOXAPARIN SODIUM 40 MG/0.4 ML SYRINGE SQ SCH (08:47)
[2017-05-01] MEDS: SENNOSIDES SYRUP 8.8 MG/5 ML CUP PEG SCH (08:47)
[2017-05-01] MEDS: LANSOPRAZOLE SOLUTAB 30 MG TAB PEG SCH ×2 (08:47→21:17)
[2017-05-01] MEDS: FLUoxetine HCL LIQUID 20 MG/5 ML CUP PEG SCH (08:47)
[2017-05-01] MEDS: JUVEN POWDER 1 PACK G-TUBE SCH ×3 (08:49→21:18)
[2017-05-01] MEDS: LACTIC ACID (AMMONIUM LACTATE) 12% LOTION 225 GM BTL TOPICAL SCH ×2 (09:00→21:18)
[2017-05-01 11:05] VITALS: O2SAT 96
[2017-05-01 13:00] LABS: BILIRUBIN, URINE NEG (NEG); BLOOD, URINE SMALL (NEG); GLUCOSE,URINE NEG (NEG); KETONE, URINE NEG (NEG); NITRITE,URINE NEG (NEG); PH, URINE 8.5 (5.0-8.5); URINE LEUKOCYTE ESTERASE SMALL (NEG)
[2017-05-01 13:10] LABS: MUCUS URINE FEW /lpf (OCC); URINE COLOR YELLOW (YELLW/STRAW)
[2017-05-01 13:11] LABS: BACTERIA, URINE MOD /hpf
--- NOTE | 2017-05-01 13:29 | HHI.PR ---
Subjective Remarks Follow up Neuro-Bechet's syndrome. Patient seen and examined. Lying in bed comfortably. Awake and alert. Nodding appropriately. Denies any pain. Denies any complaints. Afebrile. VSS. Spoke to RN, no new acute changes. Objective Vitals Vital Signs Date Time Temp Pulse Resp B/P (MAP) Pulse Ox O2 Delivery O2 Flow Rate FiO2 05/01/17 08:00 98.2 96 22 103/77 (86) 96 05/01/17 00:34 98.7 78 21 118/75 (89) 98 04/30/17 21:13 99 21 04/30/17 21:13 97.9 74 20 115/78 (90) 99 04/30/17 16:00 98.0 80 18 128/70 (89) 95 I/O 04/30/17 04/30/17 04/30/17 05/01/17 05/01/17 05/01/17 07:00 15:00 23:00 07:00 15:00 23:00 Intake Total 750 ml 480 ml 315 ml 450 ml Output Total 1150 ml 1200 ml Balance -400 ml 480 ml 315 ml -750 ml Intake Oral 0 ml Oral Supplement 480 ml Tube Feeding 550 ml 115 ml 250 ml Tube Irrigant 200 ml Other 200 ml 200 ml Output Urine Total 1150 ml 1200 ml # Bowel Movements 1 3 Result Diagram: 04/29/17 0535 04/29/17 0535 Imaging Last Impressions Chest X-Ray 04/26/17 0000 Signed Impressions: Service Date/Time: Wednesday, April 26, 2017 13:12 - CONCLUSION: 1. Poor inspiratory result. 2. Minimal perihilar atelectatic changes bilaterally. 3. Mild scoliosis of the thoracic spine. Tomi Joseph MD Hip Aspiration/Injection 10/08/16 0000 Signed Impressions: Service Date/Time: Tuesday, October 11, 2016 13:41 - CONCLUSION: Uncomplicated aspiration as above. Minimal fluid on the right. No identifiable fluid on the left Clayton Max MD Lower Extremity Ultrasound 10/06/16 0000 Signed Impressions: Service Date/Time: September 17:29 - CONCLUSION: Normal examination. Josafat Meyer MD CT Angiography 10/06/16 0000 Signed Impressions: Service Date/Time: September 20:31 - CONCLUSION: Minimal right upper lobe infiltrate and basilar atelectasis. No evidence of pulmonary embolism.. Josafat Meyer MD Abdomen/Pelvis CT 10/06/16 Signed Impressions: Service Date/Time: September 20:31 - CONCLUSION: No evidence of pelvic abscess. Josafat Meyer MD Upper Extremity Ultrasound 09/28/16 Signed Impressions: Service Date/Time: Wednesday, September 28, 2016 19:15 - CONCLUSION: 1. Occlusive superficial thrombosis in the left cephalic vein near the antecubital fossa. No deep venous thrombosis. Sumit Bourgeois MD Renal Ultrasound 08/28/16 Signed Impressions: Service Date/Time: Sunday, August 28, 2016 20:03 - CONCLUSION: Mild increased echotexture of both kidneys. Baldev Vu MD Lumbar Puncture Fluoroscopy 08/17/16 Signed Impressions: Service Date/Time: Wednesday, August 17, 2016 12:26 - CONCLUSION: Uncomplicated fluoroscopically guided lumbar puncture. Vishal Beckford Jr., MD Brain MRI 08/17/16 Signed Impressions: Service Date/Time: Wednesday, August 17, 2016 13:28 - CONCLUSION: Remote long-standing areas of abnormality in the brainstem and middle cerebellar peduncle consistent with remote infarcts or contusion. No acute intracranial abnormality. Chacho Bright MD Abdomen X-Ray 08/17/16 Signed Impressions: Service Date/Time: Wednesday, August 17, 2016 13:02 - CONCLUSION: No evidence of obstruction. No MRI incompatible foreign body is identified. Chacho Bright MD Head CT 08/16/16 Signed Impressions: Service Date/Time: Tuesday, August 16, 2016 09:55 - CONCLUSION: Chronic ischemic changes left frontal lobe possibly from evidence of previous ventriculostomy placement, unchanged. No acute intracranial abnormality. Gen Potter MD Modified Barium Swallow 08/15/16 0000 Signed Impressions: Service Date/Time: Monday, August 15, 2016 00:00 - CONCLUSION: See report above and speech pathology report Chacho Bright MD Objective Remarks GENERAL: Well-developed cachectic and contracted male patient in NAD. Awake and alert, nonverbal. Nodding appropriately. SKIN: Warm and dry. No rash. HEENT: Normocephalic. Atraumatic. Pupils equal and round. No scleral icterus. No injection or drainage. No nasal bleeding or discharge. Mucous membranes pink and moist. NECK: Supple. Trachea midline. CARDIOVASCULAR: Regular rate and rhythm. S1, S2 noted. No murmur appreciated. RESPIRATORY: No accessory muscle use. Clear to auscultation. Breath sounds equal bilaterally. GASTROINTESTINAL: Abdomen soft, non-tender, nondistended. Normoactive bowel sounds x4. No guarding. PEG tube noted, no erythema or drainage from site, c/d/ i. MUSCULOSKELETAL: No obvious deformities. Extremities without clubbing, cyanosis , or edema. 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's disease Status: Chronic (2) Hospital acquired PNA ICD Code: J18.9 - Pneumonia, unspecified organism Status: Resolved (3) Sepsis ICD Code: A41.9 - Sepsis, unspecified organism Status: Resolved (4) Encephalopathy ICD Code: G93.40 - Encephalopathy, unspecified Status: Resolved (5) GI bleed ICD Code: K92.2 - Gastrointestinal hemorrhage, unspecified Status: Resolved (6) HCAP (healthcare-associated pneumonia) ICD Code: J18.9 - Pneumonia, unspecified organism Status: Resolved (7) UTI (urinary tract infection) ICD Code: N39.0 - Urinary tract infection, site not specified Status: Resolved (8) Leucocytosis ICD Code: D72.829 - Elevated white blood cell count, unspecified Status: Resolved (9) Fever ICD Code: R50.9 - Fever, unspecified Status: Resolved (10) Effusion of hip joint ICD Code: M25.459 - Effusion, unspecified hip Status: Acute (11) 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 Patient was followed by neurology. Aphasic at baseline. Continue Imuran, prednisone EEG shows mild to moderate slowing at times of various depending on the epoch , there was no epileptic activity seen Continue PT/OT Palliative care still following the patient. Still indicating full code and full aggressive measures. Sepsis (fever, tachycardia, lactic acid) suspect secondary to UTI - Urine culture growing pseudomonas aeruginoas and Enterococcus Faecalis. - Initial lactic acid was 3.3, repeat within normal limits. DC IV fluids. Status post vancomycin and cefepime, started on Levaquin IV. Kowalski catheter changed 04/26. - Patient has been stable can transfer to [facility] floor. Blood cultures are negative at 48 hours. - Will recheck UA today. Continue Levaquin today and depending on UA will stop antibiotics. Continue to follow. Bacterial conjunctivitis of left eye, resolved. - Status post Ofloxacin eye drops. Supportive care. 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 04/26/17 Decreased oral intake and dysphagia on initial presentation Speech therapy evaluated patient. S/P barium swallow. Patient with severe dysphagia. GI was consulted and PEG tube was placed. Patient was intolerant to bolus feeding Dietary reconsulted and made recommendations. tube feeding continued, TwoCal HN, goal rate 50ml/hr. Free Water Flushes and additional free water flush with Maury bid. Coccyx decubitus Ankle ulceration Wound care nurse is following the patient for management Patient with specialty bed Mood disorder, depression Psychiatry evaluated patient and made recommendations Prozac 40 mg daily Seroquel 25 mg at bedtime Diabetes Glucose continues to be well controlled DVT Prophylaxis: Lovenox, TEDs/SCDs. Records reviewed extensively. Case management discharge planning. Discharge Planning Case management assisting. Problem Qualifiers (1) GI bleed: (2) UTI (urinary tract infection): (3) Effusion of hip joint: Dotty Pacheco May 01, 2017 13:28
[2017-05-01] MEDS: LEVOFLOXACIN 750 MG PREMIX INJ 150 ML IV SCH ×2 (14:18→14:42)
[2017-05-01 16:00] VITALS: BP 119/77; PULSE 93; RESP 20; TEMP 98.4; O2SAT 99
[2017-05-01 20:00] VITALS: BP 115/75; PULSE 89; RESP 18; TEMP 97.5; O2SAT 93
[2017-05-01 20:35] VITALS: O2SAT 95
[2017-05-01] MEDS: QUEtiapine FUMARATE 25 MG TAB PO SCH (21:18)
[2017-05-02] MEDS: azaTHIOprine 50 MG TAB PEG SCH ×2 (05:58→16:59)
[2017-05-02 08:00] VITALS: BP 109/75; PULSE 89; RESP 22; TEMP 97.4; O2SAT 98
[2017-05-02] MEDS: FLUoxetine HCL LIQUID 20 MG/5 ML CUP PEG SCH (09:52)
[2017-05-02] MEDS: LACTOBACILLUS ACIDOPHILUS TAB PEG SCH ×2 (09:52→22:42)
[2017-05-02] MEDS: SENNOSIDES SYRUP 8.8 MG/5 ML CUP PEG SCH (09:52)
[2017-05-02] MEDS: LANSOPRAZOLE SOLUTAB 30 MG TAB PEG SCH ×2 (09:52→22:42)
[2017-05-02] MEDS: predniSONE 20 MG TAB PEG SCH (09:53)
[2017-05-02] MEDS: ENOXAPARIN SODIUM 40 MG/0.4 ML SYRINGE SQ SCH (09:53)
[2017-05-02] MEDS: JUVEN POWDER 1 PACK G-TUBE SCH ×2 (09:55→22:42)
[2017-05-02] MEDS: LACTIC ACID (AMMONIUM LACTATE) 12% LOTION 225 GM BTL TOPICAL SCH ×2 (09:55→22:42)
[2017-05-02 12:00] VITALS: BP 101/76; PULSE 89; RESP 20; TEMP 97.6; O2SAT 96
[2017-05-02] MEDS: LEVOFLOXACIN 750 MG PREMIX INJ 150 ML IV SCH (13:36)
[2017-05-02 16:00] VITALS: BP 112/77; PULSE 92; RESP 22; TEMP 97.9; O2SAT 96
--- NOTE | 2017-05-02 17:36 | HHI.PR ---
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 Patient is doing much better today. Denies any new complaints. No change in clinical status. Objective Vitals Vital Signs Date Time Temp Pulse Resp B/P (MAP) Pulse Ox O2 Delivery O2 Flow Rate FiO2 05/02/17 16:00 97.9 92 22 112/77 (89) 96 05/02/17 12:00 97.6 89 20 101/76 (84) 96 05/02/17 08:00 97.4 89 22 109/75 (86) 98 05/01/17 20:35 95 21 05/01/17 20:00 97.5 89 18 115/75 (88) 93 I/O 05/01/17 05/01/17 05/01/17 05/02/17 05/02/17 05/02/17 07:00 15:00 23:00 07:00 15:00 23:00 Intake Total 450 ml 816 ml 150 ml 950 ml 0 ml 150 ml Output Total 1200 ml 575 ml 375 ml 550 ml Balance -750 ml 241 ml 150 ml 575 ml -550 ml 150 ml Intake Oral 0 ml 0 ml 0 ml IV Total 150 ml 150 ml Tube Feeding 250 ml 416 ml 550 ml Tube Irrigant 400 ml 400 ml Other 200 ml Output Urine Total 1200 ml 575 ml 375 ml 550 ml # Bowel Movements 3 1 1 1 Result Diagram: 04/29/1735 04/29/17 0535 Objective Remarks GENERAL: Well-developed, cachectic and contracted. HEENT: Head is normocephalic without any lesions or masses noted. Facial features are symmetric. Eyes: Extraocular muscles are intact. Conjunctivae were clear. NECK: Trachea midline no deviation. CARDIAC: Regular rhythm, tachycardia noted. S1/S2 are heard. No murmurs gallops or rubs. LUNGS: Clear to auscultation bilaterally. No wheeze, rhonchi or rales. No use of accessory muscles on inspiration or expiration. ABDOMEN: Soft, nontender. Nondistended. Bowel sounds heard in all 4 quadrants. No organomegaly or masses. Negative rebound, negative guarding. PEG tube noted without any excoriation. EXTREMITIES: No edema, pulses are equal bilaterally. No cyanosis or clubbing. Procedures 07/19/16 EGD with PEG tube placement 09/27/16 colonoscopy Urinary Catheter: Yes Assessment to: Continue Kowalski insert reason: Obstruction/Retention Date of Insertion: Apr 26, 2017 Vascular Central Line Catheter: No A/P Assessment and Plan Sepsis secondary to urinary tract infection, Patient did have febrile illness, leukocytosis which have resolved Urine culture does indicate Pseudomonas, enterococcus faecalis Status post vancomycin/cefepime IV Levaquin 750 mg IV daily has been continued, changed to Cipro 500 mg twice daily for total antibiotic treatment of 14 days Neuro-Behcet, history of frontal lobe CVA, encephalopathy, history of meningitis , Blurred vision/double vision, urinary retention, chronic No new changes on imaging. Patient was followed by neurology. Aphasic at baseline. Continue Imuran, prednisone EEG shows mild to moderate slowing at times of various depending on the epoch , there was no epileptic activity seen Continue PT/OT Palliative care still following the patient. 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 04/26/17, --Decreased oral intake and dysphagia on initial presentation Speech therapy evaluated patient. S/P barium swallow. Patient with severe dysphagia. GI was consulted and PEG tube was placed. Patient was intolerant to bolus feeding Dietary reconsulted and made recommendations Coccyx decubitus. Ankle ulceration Wound care nurse is following the patient for management Patient with specialty bed Mood disorder, depression Psychiatry evaluated patient and made recommendations Prozac 40 mg daily Seroquel 25 mg at bedtime Diabetes Glucose continues to be well controlled, DVT Prophylaxis: Lovenox, TEDs/SCDs. Discharge Planning Case management for discharge planning, Ede Richardson May 02, 2017 17:36
[2017-05-02 20:00] VITALS: BP 115/82; PULSE 87; RESP 18; TEMP 96.2; O2SAT 95
[2017-05-02] MEDS: CIPROFLOXACIN 500 MG TAB PO SCH (22:42)
[2017-05-02] MEDS: QUEtiapine FUMARATE 25 MG TAB PO SCH (22:42)
[2017-05-03] MEDS: azaTHIOprine 50 MG TAB PEG SCH ×2 (05:47→18:42)
[2017-05-03 08:00] VITALS: BP 97/82; PULSE 103; RESP 14; TEMP 96.2; O2SAT 93
--- NOTE | 2017-05-03 09:33 | HHI.PR ---
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 Patient denies any new complaints. No change in clinical status. Discussed with nursing staff, no acute events overnight. Objective Vitals Vital Signs Date Time Temp Pulse Resp B/P (MAP) Pulse Ox O2 Delivery O2 Flow Rate FiO2 05/02/17 20:00 96.2 87 18 115/82 (93) 95 05/02/17 16:00 97.9 92 22 112/77 (89) 96 05/02/17 12:00 97.6 89 20 101/76 (84) 96 I/O 05/02/17 05/02/17 05/02/17 05/03/17 05/03/17 05/03/17 07:00 15:00 23:00 07:00 15:00 23:00 Intake Total 950 ml 0 ml 1980 ml 1062 ml Output Total 375 ml 550 ml 250 ml Balance 575 ml -550 ml 1980 ml 812 ml Intake Oral 0 ml 0 ml IV Total 150 ml Tube Feeding 550 ml 550 ml 862 ml Tube Irrigant 400 ml 600 ml Other 680 ml 200 ml Output Urine Total 375 ml 550 ml 250 ml # Bowel Movements 1 0 Result Diagram: 04/29/17 0535 04/29/17 0535 Objective Remarks GENERAL: Well-developed, cachectic and contracted. HEENT: Head is normocephalic without any lesions or masses noted. Facial features are symmetric. Eyes: Extraocular muscles are intact. Conjunctivae were clear. NECK: Trachea midline no deviation. CARDIAC: Regular rhythm, tachycardia noted. S1/S2 are heard. No murmurs gallops or rubs. LUNGS: Clear to auscultation bilaterally. No wheeze, rhonchi or rales. No use of accessory muscles on inspiration or expiration. ABDOMEN: Soft, nontender. Nondistended. Bowel sounds heard in all 4 quadrants. No organomegaly or masses. Negative rebound, negative guarding. PEG tube noted without any excoriation. EXTREMITIES: No edema, pulses are equal bilaterally. No cyanosis or clubbing. Procedures 07/19/16 EGD with PEG tube placement 09/27/16 colonoscopy Urinary Catheter: No Date of Insertion: Apr 26, 2017 Vascular Central Line Catheter: No A/P Assessment and Plan Sepsis secondary to urinary tract infection, Patient did have febrile illness, leukocytosis which have resolved Urine culture does indicate Pseudomonas, enterococcus faecalis Status post vancomycin/cefepime IV Levaquin 750 mg IV daily has been continued, changed to Cipro 500 mg twice daily for total antibiotic treatment of 14 days Neuro-Behcet, history of frontal lobe CVA, encephalopathy, history of meningitis , Blurred vision/double vision, urinary retention, chronic No new changes on imaging. Patient was followed by neurology. Aphasic at baseline. Continue Imuran, prednisone EEG shows mild to moderate slowing at times of various depending on the epoch , there was no epileptic activity seen Continue PT/OT Palliative care still following the patient. 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 04/26/17, --Decreased oral intake and dysphagia on initial presentation Speech therapy evaluated patient. S/P barium swallow. Patient with severe dysphagia. GI was consulted and PEG tube was placed. Patient was intolerant to bolus feeding Dietary reconsulted and made recommendations Coccyx decubitus. Ankle ulceration Wound care nurse is following the patient for management Patient with specialty bed Mood disorder, depression Psychiatry evaluated patient and made recommendations Prozac 40 mg daily Seroquel 25 mg at bedtime Diabetes Glucose continues to be well controlled, DVT Prophylaxis: Lovenox, TEDs/SCDs. Discharge Planning Case management for discharge planning, Ede Richardson May 03, 2017 09:33
[2017-05-03] MEDS: JUVEN POWDER 1 PACK G-TUBE SCH (10:08)
[2017-05-03] MEDS: SENNOSIDES SYRUP 8.8 MG/5 ML CUP PEG SCH (10:08)
[2017-05-03] MEDS: FLUoxetine HCL LIQUID 20 MG/5 ML CUP PEG SCH (10:08)
[2017-05-03] MEDS: ENOXAPARIN SODIUM 40 MG/0.4 ML SYRINGE SQ SCH (10:08)
[2017-05-03] MEDS: LANSOPRAZOLE SOLUTAB 30 MG TAB PEG SCH ×2 (10:09→22:13)
[2017-05-03] MEDS: CIPROFLOXACIN 500 MG TAB PO SCH ×2 (10:09→22:13)
[2017-05-03] MEDS: predniSONE 20 MG TAB PEG SCH (10:09)
[2017-05-03] MEDS: LACTOBACILLUS ACIDOPHILUS TAB PEG SCH ×2 (10:09→22:13)
[2017-05-03] MEDS: LACTIC ACID (AMMONIUM LACTATE) 12% LOTION 225 GM BTL TOPICAL SCH (10:21)
[2017-05-03 19:15] VITALS: BP 123/65; PULSE 90; RESP 16; TEMP 98.3; O2SAT 94
[2017-05-03] MEDS: QUEtiapine FUMARATE 25 MG TAB PO SCH (22:13)
[2017-05-04] MEDS: JUVEN POWDER 1 PACK G-TUBE SCH ×3 (00:47→23:14)
[2017-05-04] MEDS: LACTIC ACID (AMMONIUM LACTATE) 12% LOTION 225 GM BTL TOPICAL SCH ×3 (00:47→23:16)
[2017-05-04] MEDS: azaTHIOprine 50 MG TAB PEG SCH ×2 (05:35→17:56)
[2017-05-04 08:00] VITALS: BP 108/72; PULSE 97; RESP 16; TEMP 100.2; O2SAT 98
[2017-05-04] MEDS: FLUoxetine HCL LIQUID 20 MG/5 ML CUP PEG SCH (09:00)
--- NOTE | 2017-05-04 09:34 | HHI.PR ---
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 Patient denies any new complaints. No change in clinical status. Awaiting case management for discharge planning. No acute events overnight Objective Vitals Vital Signs Date Time Temp Pulse Resp B/P (MAP) Pulse Ox O2 Delivery O2 Flow Rate FiO2 05/04/17 08:00 100.2 97 16 108/72 (84) 98 05/03/17 19:15 98.3 90 16 123/65 (84) 94 I/O 05/03/17 05/03/17 05/03/17 05/04/17 05/04/17 05/04/17 07:00 15:00 23:00 07:00 15:00 23:00 Intake Total 1062 ml 950 ml Output Total 250 ml 800 ml 500 ml Balance 812 ml 150 ml -500 ml Intake Oral 0 ml Tube Feeding 862 ml 450 ml Tube Irrigant 500 ml Other 200 ml Output Urine Total 250 ml 800 ml 500 ml # Bowel Movements 0 0 Objective Remarks GENERAL: Well-developed, cachectic and contracted. HEENT: Head is normocephalic without any lesions or masses noted. Facial features are symmetric. Eyes: Extraocular muscles are intact. Conjunctivae were clear. NECK: Trachea midline no deviation. CARDIAC: Regular rhythm, tachycardia noted. S1/S2 are heard. No murmurs gallops or rubs. LUNGS: Clear to auscultation bilaterally. No wheeze, rhonchi or rales. No use of accessory muscles on inspiration or expiration. ABDOMEN: Soft, nontender. Nondistended. Bowel sounds heard in all 4 quadrants. No organomegaly or masses. Negative rebound, negative guarding. PEG tube noted without any excoriation. EXTREMITIES: No edema, pulses are equal bilaterally. No cyanosis or clubbing. Procedures 07/19/16 EGD with PEG tube placement 09/27/16 colonoscopy Urinary Catheter: Yes Assessment to: Continue Kowalski insert reason: Obstruction/Retention Date of Insertion: Apr 26, 2017 Vascular Central Line Catheter: No A/P Assessment and Plan Sepsis secondary to urinary tract infection, Patient did have febrile illness, leukocytosis which have resolved Urine culture does indicate Pseudomonas, enterococcus faecalis Status post vancomycin/cefepime/Levaquin IV Cipro 500 mg twice daily for total antibiotic treatment of 14 days Neuro-Behcet, history of frontal lobe CVA, encephalopathy, history of meningitis , Blurred vision/double vision, urinary retention, chronic No new changes on imaging. Patient was followed by neurology. Aphasic at baseline. Continue Imuran, prednisone EEG shows mild to moderate slowing at times of various depending on the epoch , there was no epileptic activity seen Continue PT/OT Palliative care still following the patient. 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 04/26/17, --Decreased oral intake and dysphagia on initial presentation Speech therapy evaluated patient. S/P barium swallow. Patient with severe dysphagia. GI was consulted and PEG tube was placed. Patient was intolerant to bolus feeding Dietary reconsulted and made recommendations Coccyx decubitus. Ankle ulceration Wound care nurse is following the patient for management Patient with specialty bed Mood disorder, depression Psychiatry evaluated patient and made recommendations Prozac 40 mg daily Seroquel 25 mg at bedtime Diabetes Glucose continues to be well controlled, DVT Prophylaxis: Lovenox, TEDs/SCDs. Records were reviewed. No change in current treatment plan. Awaiting case management for discharge planning Discharge Planning Case management for discharge planning, Ede Richardson May 04, 2017 09:34
[2017-05-04] MEDS: predniSONE 20 MG TAB PEG SCH (09:44)
[2017-05-04] MEDS: SENNOSIDES SYRUP 8.8 MG/5 ML CUP PEG SCH (09:44)
[2017-05-04] MEDS: LANSOPRAZOLE SOLUTAB 30 MG TAB PEG SCH ×2 (09:45→23:15)
[2017-05-04] MEDS: IBUPROFEN SUSP 100 MG/5 ML UDC PEG PRN (09:45)
[2017-05-04] MEDS: CIPROFLOXACIN 500 MG TAB PO SCH ×2 (09:45→23:15)
[2017-05-04] MEDS: ENOXAPARIN SODIUM 40 MG/0.4 ML SYRINGE SQ SCH (09:45)
[2017-05-04] MEDS: LACTOBACILLUS ACIDOPHILUS TAB PEG SCH ×2 (09:45→23:15)
[2017-05-04 22:00] VITALS: BP 113/72; PULSE 97; RESP 16; TEMP 98.9; O2SAT 98
[2017-05-04] MEDS: QUEtiapine FUMARATE 25 MG TAB PO SCH (23:15)
[2017-05-05] MEDS: azaTHIOprine 50 MG TAB PEG SCH ×2 (05:35→17:27)
[2017-05-05 08:31] VITALS: BP 113/82; PULSE 88; RESP 18; TEMP 97.4; O2SAT 97
[2017-05-05] MEDS: LACTIC ACID (AMMONIUM LACTATE) 12% LOTION 225 GM BTL TOPICAL SCH ×2 (09:00→21:55)
[2017-05-05] MEDS: JUVEN POWDER 1 PACK G-TUBE SCH ×2 (09:00→21:54)
[2017-05-05] MEDS: FLUoxetine HCL LIQUID 20 MG/5 ML CUP PEG SCH (09:07)
[2017-05-05] MEDS: ENOXAPARIN SODIUM 40 MG/0.4 ML SYRINGE SQ SCH (09:07)
[2017-05-05] MEDS: LANSOPRAZOLE SOLUTAB 30 MG TAB PEG SCH ×2 (09:08→21:54)
[2017-05-05] MEDS: SENNOSIDES SYRUP 8.8 MG/5 ML CUP PEG SCH (09:08)
[2017-05-05] MEDS: predniSONE 20 MG TAB PEG SCH (09:08)
[2017-05-05] MEDS: LACTOBACILLUS ACIDOPHILUS TAB PEG SCH ×2 (09:08→21:54)
[2017-05-05] MEDS: CIPROFLOXACIN 500 MG TAB PO SCH ×2 (09:08→21:54)
--- NOTE | 2017-05-05 11:38 | HHI.PR ---
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 Patient denies any new complaints today. No change in clinical status. Awaiting case management for discharge planning. Objective Vitals Vital Signs Date Time Temp Pulse Resp B/P (MAP) Pulse Ox O2 Delivery O2 Flow Rate FiO2 05/05/17 08:31 97.4 88 18 113/82 (92) 97 05/04/17 22:00 98.9 97 16 113/72 (86) 98 I/O 05/04/17 05/04/17 05/04/17 05/05/17 05/05/17 05/05/17 07:00 15:00 23:00 07:00 15:00 23:00 Intake Total 750 ml 800 ml Output Total 500 ml 150 ml 500 ml Balance -500 ml -150 ml 750 ml 300 ml Tube Feeding 550 ml 600 ml Other 200 ml 200 ml Output Urine Total 500 ml 150 ml 500 ml # Bowel Movements 1 Objective Remarks GENERAL: Well-developed, cachectic and contracted. HEENT: Head is normocephalic without any lesions or masses noted. Facial features are symmetric. Eyes: Extraocular muscles are intact. Conjunctivae were clear. NECK: Trachea midline no deviation. CARDIAC: Regular rhythm, tachycardia noted. S1/S2 are heard. No murmurs gallops or rubs. LUNGS: Clear to auscultation bilaterally. No wheeze, rhonchi or rales. No use of accessory muscles on inspiration or expiration. ABDOMEN: Soft, nontender. Nondistended. Bowel sounds heard in all 4 quadrants. No organomegaly or masses. Negative rebound, negative guarding. PEG tube noted without any excoriation. EXTREMITIES: No edema, pulses are equal bilaterally. No cyanosis or clubbing. Procedures 07/19/16 EGD with PEG tube placement 09/27/16 colonoscopy Urinary Catheter: Yes Assessment to: Continue Kowalski insert reason: Obstruction/Retention Date of Insertion: Apr 26, 2017 Vascular Central Line Catheter: No A/P Assessment and Plan Sepsis secondary to urinary tract infection, Patient did have febrile illness, leukocytosis which have resolved Urine culture does indicate Pseudomonas, enterococcus faecalis Status post vancomycin/cefepime/Levaquin IV Cipro 500 mg twice daily for total antibiotic treatment of 14 days Neuro-Behcet, history of frontal lobe CVA, encephalopathy, history of meningitis , Blurred vision/double vision, urinary retention, chronic No new changes on imaging. Patient was followed by neurology. Aphasic at baseline. Continue Imuran, prednisone EEG shows mild to moderate slowing at times of various depending on the epoch , there was no epileptic activity seen Continue PT/OT Palliative care still following the patient. 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 04/26/17, --Decreased oral intake and dysphagia on initial presentation Speech therapy evaluated patient. S/P barium swallow. Patient with severe dysphagia. GI was consulted and PEG tube was placed. Patient was intolerant to bolus feeding Dietary reconsulted and made recommendations Coccyx decubitus. Ankle ulceration Wound care nurse is following the patient for management Patient with specialty bed Mood disorder, depression Psychiatry evaluated patient and made recommendations Prozac 40 mg daily Seroquel 25 mg at bedtime Diabetes Glucose continues to be well controlled, DVT Prophylaxis: Lovenox, TEDs/SCDs. Records were reviewed. Awaiting case management for discharge planning. No change in current treatment plan. Discharge Planning Case management for discharge planning, Ede Richardson May 05, 2017 11:38
[2017-05-05 12:29] VITALS: BP 117/73; PULSE 83; RESP 21; TEMP 97; O2SAT 95
[2017-05-05 20:00] VITALS: BP 114/85; PULSE 88; RESP 18; TEMP 96.5; O2SAT 96
[2017-05-05] MEDS: QUEtiapine FUMARATE 25 MG TAB PO SCH (21:54)
[2017-05-06] MEDS: azaTHIOprine 50 MG TAB PEG SCH ×2 (06:07→17:54)
[2017-05-06 08:00] VITALS: BP 117/76; PULSE 70; RESP 18; TEMP 97.7; O2SAT 96
--- NOTE | 2017-05-06 08:54 | HHI.PR ---
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 Patient denies any new complaints. No change clinical status. Awaiting case management for discharge planning. Objective Vitals Vital Signs Date Time Temp Pulse Resp B/P (MAP) Pulse Ox O2 Delivery O2 Flow Rate FiO2 05/06/17 08:00 97.7 70 18 117/76 (90) 96 05/05/17 20:00 96.5 88 18 114/85 (95) 96 05/05/17 12:29 97.0 83 21 117/73 (88) 95 I/O 05/05/17 05/05/17 05/05/17 05/06/17 05/06/17 05/06/17 07:00 15:00 23:00 07:00 15:00 23:00 Intake Total 800 ml 690 ml Output Total 500 ml 300 ml 400 ml Balance 300 ml -300 ml 290 ml Intake Oral 0 ml Tube Feeding 600 ml 450 ml Other 200 ml 240 ml Output Urine Total 500 ml 300 ml 400 ml # Bowel Movements 1 0 Objective Remarks GENERAL: Well-developed, cachectic and contracted. HEENT: Head is normocephalic without any lesions or masses noted. Facial features are symmetric. Eyes: Extraocular muscles are intact. Conjunctivae were clear. NECK: Trachea midline no deviation. CARDIAC: Regular rhythm, tachycardia noted. S1/S2 are heard. No murmurs gallops or rubs. LUNGS: Clear to auscultation bilaterally. No wheeze, rhonchi or rales. No use of accessory muscles on inspiration or expiration. ABDOMEN: Soft, nontender. Nondistended. Bowel sounds heard in all 4 quadrants. No organomegaly or masses. Negative rebound, negative guarding. PEG tube noted without any excoriation. EXTREMITIES: No edema, pulses are equal bilaterally. No cyanosis or clubbing. Procedures 07/19/16 EGD with PEG tube placement 09/27/16 colonoscopy Urinary Catheter: Yes Assessment to: Continue Kowalski insert reason: Obstruction/Retention Date of Insertion: Apr 26, 2017 Vascular Central Line Catheter: No A/P Assessment and Plan Sepsis secondary to urinary tract infection, Patient did have febrile illness, leukocytosis which have resolved Urine culture does indicate Pseudomonas, enterococcus faecalis Status post vancomycin/cefepime/Levaquin IV Cipro 500 mg twice daily for total antibiotic treatment of 14 days Neuro-Behcet, history of frontal lobe CVA, encephalopathy, history of meningitis , Blurred vision/double vision, urinary retention, chronic No new changes on imaging. Patient was followed by neurology. Aphasic at baseline. Continue Imuran, prednisone EEG shows mild to moderate slowing at times of various depending on the epoch , there was no epileptic activity seen Continue PT/OT Palliative care still following the patient. 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 04/26/17, --Decreased oral intake and dysphagia on initial presentation Speech therapy evaluated patient. S/P barium swallow. Patient with severe dysphagia. GI was consulted and PEG tube was placed. Patient was intolerant to bolus feeding Dietary reconsulted and made recommendations Coccyx decubitus. Ankle ulceration Wound care nurse is following the patient for management Patient with specialty bed Mood disorder, depression Psychiatry evaluated patient and made recommendations Prozac 40 mg daily Seroquel 25 mg at bedtime Diabetes Glucose continues to be well controlled, DVT Prophylaxis: Lovenox, TEDs/SCDs. Records were reviewed. No change in current treatment plan. Awaiting case management for discharge planning. Discharge Planning Case management for discharge planning, Ede Richardson May 06, 2017 08:54
[2017-05-06] MEDS: LACTOBACILLUS ACIDOPHILUS TAB PEG SCH ×2 (08:58→22:22)
[2017-05-06] MEDS: ENOXAPARIN SODIUM 40 MG/0.4 ML SYRINGE SQ SCH (08:58)
[2017-05-06] MEDS: FLUoxetine HCL LIQUID 20 MG/5 ML CUP PEG SCH (08:58)
[2017-05-06] MEDS: SENNOSIDES SYRUP 8.8 MG/5 ML CUP PEG SCH (08:58)
[2017-05-06] MEDS: LANSOPRAZOLE SOLUTAB 30 MG TAB PEG SCH ×2 (08:59→22:22)
[2017-05-06] MEDS: CIPROFLOXACIN 500 MG TAB PO SCH ×2 (08:59→21:00)
[2017-05-06] MEDS: predniSONE 20 MG TAB PEG SCH (08:59)
[2017-05-06] MEDS: JUVEN POWDER 1 PACK G-TUBE SCH ×2 (09:00→22:24)
[2017-05-06] MEDS: LACTIC ACID (AMMONIUM LACTATE) 12% LOTION 225 GM BTL TOPICAL SCH (09:00)
[2017-05-06 19:15] VITALS: BP 125/77; PULSE 82; RESP 16; TEMP 97.6; O2SAT 95
[2017-05-06 19:59] VITALS: O2SAT 97
[2017-05-06] MEDS: QUEtiapine FUMARATE 25 MG TAB PO SCH (22:23)
[2017-05-07] MEDS: LACTIC ACID (AMMONIUM LACTATE) 12% LOTION 225 GM BTL TOPICAL SCH ×3 (03:31→21:00)
[2017-05-07] MEDS: azaTHIOprine 50 MG TAB PEG SCH ×2 (06:12→17:16)
[2017-05-07 08:00] VITALS: BP 135/67; PULSE 87; RESP 16; TEMP 98; O2SAT 96
[2017-05-07] MEDS: LACTOBACILLUS ACIDOPHILUS TAB PEG SCH ×2 (09:00→22:16)
[2017-05-07] MEDS: JUVEN POWDER 1 PACK G-TUBE SCH ×2 (10:19→22:18)
[2017-05-07] MEDS: LANSOPRAZOLE SOLUTAB 30 MG TAB PEG SCH ×2 (10:20→22:16)
[2017-05-07] MEDS: predniSONE 20 MG TAB PEG SCH (10:20)
[2017-05-07] MEDS: ENOXAPARIN SODIUM 40 MG/0.4 ML SYRINGE SQ SCH (10:20)
[2017-05-07] MEDS: CIPROFLOXACIN 500 MG TAB PO SCH ×2 (10:20→21:11)
[2017-05-07] MEDS: FLUoxetine HCL LIQUID 20 MG/5 ML CUP PEG SCH (10:20)
[2017-05-07] MEDS: SENNOSIDES SYRUP 8.8 MG/5 ML CUP PEG SCH (10:20)
--- NOTE | 2017-05-07 11:18 | HHI.PR ---
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 Patient denies any new complaints. No change in clinical status. Nursing staff does not indicate any acute events overnight. Objective Vitals Vital Signs Date Time Temp Pulse Resp B/P (MAP) Pulse Ox O2 Delivery O2 Flow Rate FiO2 05/07/17 08:00 98.0 87 16 135/67 (89) 96 05/06/17 19:59 97 21 05/06/17 19:15 97.6 82 16 125/77 (93) 95 I/O 05/06/17 05/06/17 05/06/17 05/07/17 05/07/17 05/07/17 07:00 15:00 23:00 07:00 15:00 23:00 Intake Total 690 ml 0 ml 1150 ml Output Total 400 ml 500 ml 500 ml 175 ml Balance 290 ml -500 ml 0 ml 650 ml -175 ml Intake Oral 0 ml 0 ml Tube Feeding 450 ml 700 ml Other 240 ml 450 ml Output Urine Total 400 ml 500 ml 500 ml 175 ml # Bowel Movements 0 Objective Remarks GENERAL: Well-developed, cachectic and contracted. HEENT: Head is normocephalic without any lesions or masses noted. Facial features are symmetric. Eyes: Extraocular muscles are intact. Conjunctivae were clear. NECK: Trachea midline no deviation. CARDIAC: Regular rhythm, tachycardia noted. S1/S2 are heard. No murmurs gallops or rubs. LUNGS: Clear to auscultation bilaterally. No wheeze, rhonchi or rales. No use of accessory muscles on inspiration or expiration. ABDOMEN: Soft, nontender. Nondistended. Bowel sounds heard in all 4 quadrants. No organomegaly or masses. Negative rebound, negative guarding. PEG tube noted without any excoriation. EXTREMITIES: No edema, pulses are equal bilaterally. No cyanosis or clubbing. Procedures 07/19/16 EGD with PEG tube placement 09/27/16 colonoscopy Urinary Catheter: Yes Assessment to: Continue Kowalski insert reason: Obstruction/Retention Date of Insertion: Apr 26, 2017 A/P Assessment and Plan Sepsis secondary to urinary tract infection, Patient did have febrile illness, leukocytosis which have resolved Urine culture does indicate Pseudomonas, enterococcus faecalis Status post vancomycin/cefepime/Levaquin IV Cipro 500 mg twice daily for total antibiotic treatment of 14 days Neuro-Behcet, history of frontal lobe CVA, encephalopathy, history of meningitis , Blurred vision/double vision, urinary retention, chronic No new changes on imaging. Patient was followed by neurology. Aphasic at baseline. Continue Imuran, prednisone EEG shows mild to moderate slowing at times of various depending on the epoch , there was no epileptic activity seen Continue PT/OT Palliative care still following the patient. 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 04/26/17, --Decreased oral intake and dysphagia on initial presentation Speech therapy evaluated patient. S/P barium swallow. Patient with severe dysphagia. GI was consulted and PEG tube was placed. Patient was intolerant to bolus feeding Dietary reconsulted and made recommendations Coccyx decubitus. Ankle ulceration Wound care nurse is following the patient for management Patient with specialty bed Mood disorder, depression Psychiatry evaluated patient and made recommendations Prozac 40 mg daily Seroquel 25 mg at bedtime Diabetes Glucose continues to be well controlled, DVT Prophylaxis: Lovenox, TEDs/SCDs. Records were reviewed. Awaiting case management for discharge planning. No change in current treatment plan. Discharge Planning Case management for discharge planning, Ede Richardson May 07, 2017 11:18
[2017-05-07 20:00] VITALS: BP 103/70; PULSE 73; RESP 16; TEMP 96.4; O2SAT 98
[2017-05-07] MEDS: QUEtiapine FUMARATE 25 MG TAB PO SCH (22:16)
[2017-05-08] VITALS: BP 127/57; PULSE 74; RESP 20; TEMP 97; O2SAT 97
[2017-05-08] MEDS: azaTHIOprine 50 MG TAB PEG SCH ×2 (04:48→17:32)
[2017-05-08] MEDS: JUVEN POWDER 1 PACK G-TUBE SCH ×3 (08:17→21:38)
[2017-05-08] MEDS: predniSONE 20 MG TAB PEG SCH (08:17)
[2017-05-08] MEDS: FLUoxetine HCL LIQUID 20 MG/5 ML CUP PEG SCH (08:18)
[2017-05-08] MEDS: SENNOSIDES SYRUP 8.8 MG/5 ML CUP PEG SCH (08:18)
[2017-05-08] MEDS: LACTIC ACID (AMMONIUM LACTATE) 12% LOTION 225 GM BTL TOPICAL SCH ×2 (08:18→21:37)
[2017-05-08] MEDS: ENOXAPARIN SODIUM 40 MG/0.4 ML SYRINGE SQ SCH (08:18)
[2017-05-08] MEDS: LACTOBACILLUS ACIDOPHILUS TAB PEG SCH ×2 (08:18→21:37)
[2017-05-08] MEDS: CIPROFLOXACIN 500 MG TAB PO SCH (08:19)
--- NOTE | 2017-05-08 08:24 | HHI.PR ---
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 Patient not indicate any new complaints. No acute events overnight. No change in clinical status. Objective Vitals Vital Signs Date Time Temp Pulse Resp B/P (MAP) Pulse Ox O2 Delivery O2 Flow Rate FiO2 05/08/17 00:00 97.0 74 20 127/57 (80) 97 05/07/17 20:00 96.4 73 16 103/70 (81) 98 I/O 05/07/17 05/07/17 05/07/17 05/08/17 05/08/17 05/08/17 07:00 15:00 23:00 07:00 15:00 23:00 Intake Total 1150 ml 1750 ml 400 ml Output Total 500 ml 175 ml 1100 ml 350 ml Balance 650 ml -175 ml 650 ml 50 ml Intake Oral 0 ml Tube Feeding 700 ml 1000 ml 200 ml Other 450 ml 750 ml 200 ml Output Urine Total 500 ml 175 ml 1100 ml 350 ml # Bowel Movements 0 1 Objective Remarks GENERAL: Well-developed, cachectic and contracted. HEENT: Head is normocephalic without any lesions or masses noted. Facial features are symmetric. Eyes: Extraocular muscles are intact. Conjunctivae were clear. NECK: Trachea midline no deviation. CARDIAC: Regular rhythm, tachycardia noted. S1/S2 are heard. No murmurs gallops or rubs. LUNGS: Clear to auscultation bilaterally. No wheeze, rhonchi or rales. No use of accessory muscles on inspiration or expiration. ABDOMEN: Soft, nontender. Nondistended. Bowel sounds heard in all 4 quadrants. No organomegaly or masses. Negative rebound, negative guarding. PEG tube noted without any excoriation. EXTREMITIES: No edema, pulses are equal bilaterally. No cyanosis or clubbing. Procedures 07/19/16 EGD with PEG tube placement 09/27/16 colonoscopy Urinary Catheter: Yes Assessment to: Continue Kowalski insert reason: Obstruction/Retention Date of Insertion: Apr 26, 2017 Vascular Central Line Catheter: No A/P Assessment and Plan Neuro-Behcet, history of frontal lobe CVA, encephalopathy, history of meningitis , Blurred vision/double vision, urinary retention, chronic No new changes on imaging. Patient was followed by neurology. Aphasic at baseline. Continue Imuran, prednisone EEG shows mild to moderate slowing at times of various depending on the epoch , there was no epileptic activity seen Continue PT/OT Palliative care still following the patient. 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 04/26/17, --Decreased oral intake and dysphagia on initial presentation Speech therapy evaluated patient. S/P barium swallow. Patient with severe dysphagia. GI was consulted and PEG tube was placed. Patient was intolerant to bolus feeding Dietary reconsulted and made recommendations Sepsis secondary to urinary tract infection, Patient did have febrile illness, leukocytosis which have resolved Urine culture does indicate Pseudomonas, enterococcus faecalis Status post vancomycin/cefepime/Levaquin IV Cipro 500 mg twice daily for total antibiotic treatment of 14 days Coccyx decubitus. Ankle ulceration Wound care nurse is following the patient for management Patient with specialty bed Mood disorder, depression Psychiatry evaluated patient and made recommendations Prozac 40 mg daily Seroquel 25 mg at bedtime Diabetes Glucose continues to be well controlled, DVT Prophylaxis: Lovenox, TEDs/SCDs. Records were reviewed. No change in current treatment plan. Awaiting case management for discharge planning. Discharge Planning Case management for discharge planning, Ede Richardson May 08, 2017 08:24
[2017-05-08 08:54] VITALS: BP 135/73; PULSE 82; RESP 20; TEMP 97.1; O2SAT 96
[2017-05-08] MEDS: LANSOPRAZOLE SOLUTAB 30 MG TAB PEG SCH ×2 (11:08→21:37)
[2017-05-08 19:15] VITALS: BP 119/78; PULSE 83; RESP 21; TEMP 97; O2SAT 96
[2017-05-08] MEDS: QUEtiapine FUMARATE 25 MG TAB PO SCH (21:37)
[2017-05-09] MEDS: CIPROFLOXACIN 500 MG TAB PO SCH ×2 (00:01→16:02)
[2017-05-09] MEDS: azaTHIOprine 50 MG TAB PEG SCH ×2 (05:55→17:08)
[2017-05-09 08:00] VITALS: BP 130/71; PULSE 80; RESP 18; TEMP 97; O2SAT 97
[2017-05-09] MEDS: HYOSCYAMINE SOLN 0.125 MG/ML 15 ML BTL PEG PRN (10:26)
[2017-05-09] MEDS: ENOXAPARIN SODIUM 40 MG/0.4 ML SYRINGE SQ SCH (10:26)
[2017-05-09] MEDS: FLUoxetine HCL LIQUID 20 MG/5 ML CUP PEG SCH (10:27)
[2017-05-09] MEDS: SENNOSIDES SYRUP 8.8 MG/5 ML CUP PEG SCH (10:27)
[2017-05-09] MEDS: LACTOBACILLUS ACIDOPHILUS TAB PEG SCH ×2 (10:27→21:36)
[2017-05-09] MEDS: predniSONE 20 MG TAB PEG SCH (10:27)
[2017-05-09] MEDS: LANSOPRAZOLE SOLUTAB 30 MG TAB PEG SCH ×2 (10:27→21:37)
[2017-05-09] MEDS: JUVEN POWDER 1 PACK G-TUBE SCH ×2 (10:27→21:40)
[2017-05-09] MEDS: LACTIC ACID (AMMONIUM LACTATE) 12% LOTION 225 GM BTL TOPICAL SCH ×2 (10:29→21:36)
--- NOTE | 2017-05-09 11:50 | HHI.PR ---
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 Patient seen and examined, lying in bed comfortably, awake and alert. Nodding appropriately. No change in clinical condition. No reports of any acute changes overnight. Denies pain. Denies any complaints. Afebrile. VSS. Objective Vitals Vital Signs Date Time Temp Pulse Resp B/P (MAP) Pulse Ox O2 Delivery O2 Flow Rate FiO2 05/09/17 08:00 97.0 80 18 130/71 (90) 97 05/08/17 19:15 97.0 83 21 119/78 (92) 96 I/O 05/08/17 05/08/17 05/08/17 05/09/17 05/09/17 05/09/17 07:00 15:00 23:00 07:00 15:00 23:00 Intake Total 400 ml 947 ml 1400 ml Output Total 350 ml 375 ml 350 ml 500 ml Balance 50 ml -375 ml 597 ml 900 ml Intake Oral 0 ml Tube Feeding 200 ml 497 ml 450 ml Tube Irrigant 950 ml Other 200 ml 450 ml Output Urine Total 350 ml 375 ml 350 ml 500 ml # Bowel Movements 1 1 Imaging Last Impressions Chest X-Ray 04/26/17 0000 Signed Impressions: Service Date/Time: Wednesday, April 26, 2017 13:12 - CONCLUSION: 1. Poor inspiratory result. 2. Minimal perihilar atelectatic changes bilaterally. 3. Mild scoliosis of the thoracic spine. Tomi Joseph MD Hip Aspiration/Injection 10/08/16 0000 Signed Impressions: Service Date/Time: Tuesday, October 11, 2016 13:41 - CONCLUSION: Uncomplicated aspiration as above. Minimal fluid on the right. No identifiable fluid on the left Clayton Max MD Lower Extremity Ultrasound 10/06/16 0000 Signed Impressions: Service Date/Time: September 17:29 - CONCLUSION: Normal examination. Josafat Meyer MD CT Angiography 10/06/16 0000 Signed Impressions: Service Date/Time: September 20:31 - CONCLUSION: Minimal right upper lobe infiltrate and basilar atelectasis. No evidence of pulmonary embolism.. Josafat Meyer MD Abdomen/Pelvis CT 10/06/16 0000 Signed Impressions: Service Date/Time: September 20:31 - CONCLUSION: No evidence of pelvic abscess. Josafat Meyer MD Upper Extremity Ultrasound 09/28/16 Signed Impressions: Service Date/Time: Wednesday, September 28, 2016 19:15 - CONCLUSION: 1. Occlusive superficial thrombosis in the left cephalic vein near the antecubital fossa. No deep venous thrombosis. Sumit Bourgeois MD Renal Ultrasound 08/28/16 Signed Impressions: Service Date/Time: Sunday, August 28, 2016 20:03 - CONCLUSION: Mild increased echotexture of both kidneys. Baldev Vu MD Lumbar Puncture Fluoroscopy 08/17/16 Signed Impressions: Service Date/Time: Wednesday, August 17, 2016 12:26 - CONCLUSION: Uncomplicated fluoroscopically guided lumbar puncture. Vishal Beckford Jr., MD Brain MRI 08/17/16 Signed Impressions: Service Date/Time: Wednesday, August 17, 2016 13:28 - CONCLUSION: Remote long-standing areas of abnormality in the brainstem and middle cerebellar peduncle consistent with remote infarcts or contusion. No acute intracranial abnormality. Chacho Bright MD Abdomen X-Ray 08/17/16 Signed Impressions: Service Date/Time: Wednesday, August 17, 2016 13:02 - CONCLUSION: No evidence of obstruction. No MRI incompatible foreign body is identified. Chacho Bright MD Head CT 08/16/16 Signed Impressions: Service Date/Time: Tuesday, August 16, 2016 09:55 - CONCLUSION: Chronic ischemic changes left frontal lobe possibly from evidence of previous ventriculostomy placement, unchanged. No acute intracranial abnormality. Gen Potter MD Modified Barium Swallow 08/15/16 0000 Signed Impressions: Service Date/Time: Monday, August 15, 2016 00:00 - CONCLUSION: See report above and speech pathology report Chacho Bright MD Objective Remarks GENERAL: Well-developed cachectic and contracted male patient in NAD. Awake and alert, nonverbal. Nodding appropriately. SKIN: Warm and dry. No rash. HEENT: Normocephalic. Atraumatic. Pupils equal and round. No scleral icterus. No injection or drainage. No nasal bleeding or discharge. Mucous membranes pink and moist. NECK: Supple. Trachea midline. CARDIOVASCULAR: Regular rate and rhythm. S1, S2 noted. No murmur appreciated. RESPIRATORY: No accessory muscle use. Clear to auscultation. Breath sounds equal bilaterally. GASTROINTESTINAL: Abdomen soft, non-tender, nondistended. Normoactive bowel sounds x4. No guarding. PEG tube noted, no erythema or drainage from site, c/d/ i. MUSCULOSKELETAL: No obvious deformities. Extremities without clubbing, cyanosis , or edema. 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 (2) Hospital acquired PNA ICD Code: J18.9 - Pneumonia, unspecified organism Status: Resolved (3) Sepsis ICD Code: A41.9 - Sepsis, unspecified organism Status: Resolved (4) Encephalopathy ICD Code: G93.40 - Encephalopathy, unspecified Status: Resolved (5) GI bleed ICD Code: K92.2 - Gastrointestinal hemorrhage, unspecified Status: Resolved (6) HCAP (healthcare-associated pneumonia) ICD Code: J18.9 - Pneumonia, unspecified organism Status: Resolved (7) UTI (urinary tract infection) ICD Code: N39.0 - Urinary tract infection, site not specified Status: Resolved (8) Leucocytosis ICD Code: D72.829 - Elevated white blood cell count, unspecified Status: Resolved (9) Fever ICD Code: R50.9 - Fever, unspecified Status: Resolved (10) Effusion of hip joint ICD Code: M25.459 - Effusion, unspecified hip Status: Acute (11) 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 Patient was followed by neurology. Aphasic at baseline. Continue Imuran, prednisone EEG shows mild to moderate slowing at times of various depending on the epoch , there was no epileptic activity seen Continue PT/OT Palliative care still following the patient. Still indicating full code and full aggressive measures. Ophthalmology consulted and indicates that his visual problems are secondary to neuro-Behcet's syndrome Recommending immunosuppressive and steroids, which the patient is already on Dietary reconsulted and made recommendations. Patient was intolerant to bolus feeding tube feeding continued, TwoCal HN, goal rate 50ml/hr. Free Water Flushes and additional free water flush with Maury bid. Sepsis (fever, tachycardia, lactic acid) suspect secondary to UTI Patient did have febrile illness, leukocytosis which have resolved Urine culture does indicate Pseudomonas, enterococcus faecalis Status post vancomycin/cefepime/Levaquin IV Cipro 500 mg twice daily for total antibiotic treatment of 14 days Bacterial conjunctivitis of left eye, resolved. - Status post Ofloxacin eye drops. Supportive care. 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 04/26/17 Coccyx decubitus Ankle ulceration Wound care nurse is following the patient for management Patient with specialty bed Mood disorder, depression Psychiatry evaluated patient and made recommendations Prozac 40 mg daily Seroquel 25 mg at bedtime Diabetes Glucose continues to be well controlled DVT Prophylaxis: Lovenox, TEDs/SCDs. Records reviewed extensively. Ni change in current treatment plan. Discharge Planning Case management assisting. Problem Qualifiers (1) GI bleed: (2) UTI (urinary tract infection): (3) Effusion of hip joint: Dotty Pacheco May 09, 2017 11:50
[2017-05-09 20:00] VITALS: BP 106/80; PULSE 87; RESP 20; TEMP 96; O2SAT 96
[2017-05-09] MEDS: QUEtiapine FUMARATE 25 MG TAB PO SCH (21:37)
[2017-05-10] VITALS: BP 100/77; PULSE 86; RESP 14; TEMP 95.9; O2SAT 96
[2017-05-10] MEDS: CIPROFLOXACIN 500 MG TAB PO SCH ×2 (00:26→11:49)
[2017-05-10] MEDS: azaTHIOprine 50 MG TAB PEG SCH ×2 (05:43→17:45)
[2017-05-10 08:00] VITALS: BP 115/78; PULSE 105; RESP 20; TEMP 100.3; O2SAT 94
[2017-05-10] MEDS: SENNOSIDES SYRUP 8.8 MG/5 ML CUP PEG SCH (08:26)
[2017-05-10] MEDS: LACTOBACILLUS ACIDOPHILUS TAB PEG SCH ×2 (08:26→21:47)
[2017-05-10] MEDS: FLUoxetine HCL LIQUID 20 MG/5 ML CUP PEG SCH (08:26)
[2017-05-10] MEDS: ENOXAPARIN SODIUM 40 MG/0.4 ML SYRINGE SQ SCH (08:27)
[2017-05-10] MEDS: predniSONE 20 MG TAB PEG SCH (08:27)
[2017-05-10] MEDS: JUVEN POWDER 1 PACK G-TUBE SCH ×2 (08:27→21:00)
[2017-05-10] MEDS: LANSOPRAZOLE SOLUTAB 30 MG TAB PEG SCH ×2 (08:27→21:47)
[2017-05-10] MEDS: LACTIC ACID (AMMONIUM LACTATE) 12% LOTION 225 GM BTL TOPICAL SCH ×2 (08:28→21:47)
--- NOTE | 2017-05-10 15:48 | HHI.PR ---
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 Patient seen and examined, lying in bed comfortably. No change in patient condition. No acute events overnight. No change in clinical condition. Objective Vitals Vital Signs Date Time Temp Pulse Resp B/P (MAP) Pulse Ox O2 Delivery O2 Flow Rate FiO2 05/10/17 08:00 100.3 105 20 115/78 (90) 94 05/09/17 20:00 96.0 87 20 106/80 (89) 96 I/O 05/09/17 05/09/17 05/09/17 05/10/17 05/10/17 05/10/17 07:00 15:00 23:00 07:00 15:00 23:00 Intake Total 1400 ml 0 ml 950 ml Output Total 500 ml 825 ml Balance 900 ml -825 ml 950 ml Intake Oral 0 ml 0 ml Tube Feeding 450 ml 450 ml Tube Irrigant 950 ml 500 ml Output Urine Total 500 ml 825 ml # Bowel Movements 1 0 1 Imaging Last Impressions Chest X-Ray 04/26/17 0000 Signed Impressions: Service Date/Time: Wednesday, April 26, 2017 13:12 - CONCLUSION: 1. Poor inspiratory result. 2. Minimal perihilar atelectatic changes bilaterally. 3. Mild scoliosis of the thoracic spine. Tomi Joseph MD Hip Aspiration/Injection 10/08/16 0000 Signed Impressions: Service Date/Time: Tuesday, October 11, 2016 13:41 - CONCLUSION: Uncomplicated aspiration as above. Minimal fluid on the right. No identifiable fluid on the left Clayton Max MD Lower Extremity Ultrasound 10/06/16 0000 Signed Impressions: Service Date/Time: September 17:29 - CONCLUSION: Normal examination. Josafat Meyer MD CT Angiography 10/06/16 0000 Signed Impressions: Service Date/Time: September 20:31 - CONCLUSION: Minimal right upper lobe infiltrate and basilar atelectasis. No evidence of pulmonary embolism.. Josafat Meyer MD Abdomen/Pelvis CT 10/06/16 0000 Signed Impressions: Service Date/Time: September 20:31 - CONCLUSION: No evidence of pelvic abscess. Josafat Meyer MD Upper Extremity Ultrasound 09/28/16 0000 Signed Impressions: Service Date/Time: Wednesday, September 28, 2016 19:15 - CONCLUSION: 1. Occlusive superficial thrombosis in the left cephalic vein near the antecubital fossa. No deep venous thrombosis. Sumit Bourgeois MD Renal Ultrasound 08/28/16 0000 Signed Impressions: Service Date/Time: Sunday, August 28, 2016 20:03 - CONCLUSION: Mild increased echotexture of both kidneys. Baldev Vu MD Lumbar Puncture Fluoroscopy 08/17/16 0000 Signed Impressions: Service Date/Time: Wednesday, August 17, 2016 12:26 - CONCLUSION: Uncomplicated fluoroscopically guided lumbar puncture. Vishal Beckford Jr., MD Brain MRI 08/17/16 0000 Signed Impressions: Service Date/Time: Wednesday, August 17, 2016 13:28 - CONCLUSION: Remote long-standing areas of abnormality in the brainstem and middle cerebellar peduncle consistent with remote infarcts or contusion. No acute intracranial abnormality. Chacho Bright MD Abdomen X-Ray 08/17/16 0000 Signed Impressions: Service Date/Time: Wednesday, August 17, 2016 13:02 - CONCLUSION: No evidence of obstruction. No MRI incompatible foreign body is identified. Chacho Bright MD Head CT 08/16/16 0000 Signed Impressions: Service Date/Time: Tuesday, August 16, 2016 09:55 - CONCLUSION: Chronic ischemic changes left frontal lobe possibly from evidence of previous ventriculostomy placement, unchanged. No acute intracranial abnormality. Gen Potter MD Modified Barium Swallow 08/15/16 0000 Signed Impressions: Service Date/Time: Monday, August 15, 2016 00:00 - CONCLUSION: See report above and speech pathology report Chacho Bright MD Objective Remarks GENERAL: Well-developed cachectic and contracted male patient in NAD. Awake and alert, nonverbal. Nodding appropriately. SKIN: Warm and dry. No rash. HEENT: Normocephalic. Atraumatic. Pupils equal and round. No scleral icterus. No injection or drainage. No nasal bleeding or discharge. Mucous membranes pink and moist. NECK: Supple. Trachea midline. CARDIOVASCULAR: Regular rate and rhythm. S1, S2 noted. No murmur appreciated. RESPIRATORY: No accessory muscle use. Clear to auscultation. Breath sounds equal bilaterally. GASTROINTESTINAL: Abdomen soft, non-tender, nondistended. Normoactive bowel sounds x4. No guarding. PEG tube noted, no erythema or drainage from site, c/d/ i. MUSCULOSKELETAL: No obvious deformities. Extremities without clubbing, cyanosis , or edema. 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's disease Status: Chronic (2) Hospital acquired PNA ICD Code: J18.9 - Pneumonia, unspecified organism Status: Resolved (3) Sepsis ICD Code: A41.9 - Sepsis, unspecified organism Status: Resolved (4) Encephalopathy ICD Code: G93.40 - Encephalopathy, unspecified Status: Resolved (5) GI bleed ICD Code: K92.2 - Gastrointestinal hemorrhage, unspecified Status: Resolved (6) HCAP (healthcare-associated pneumonia) ICD Code: J18.9 - Pneumonia, unspecified organism Status: Resolved (7) UTI (urinary tract infection) ICD Code: N39.0 - Urinary tract infection, site not specified Status: Resolved (8) Leucocytosis ICD Code: D72.829 - Elevated white blood cell count, unspecified Status: Resolved (9) Fever ICD Code: R50.9 - Fever, unspecified Status: Resolved (10) Effusion of hip joint ICD Code: M25.459 - Effusion, unspecified hip Status: Acute (11) 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 Patient was followed by neurology. Aphasic at baseline. Continue Imuran, prednisone EEG shows mild to moderate slowing at times of various depending on the epoch , there was no epileptic activity seen Continue PT/OT Palliative care still following the patient. Still indicating full code and full aggressive measures. Ophthalmology consulted and indicates that his visual problems are secondary to neuro-Behcet's syndrome Recommending immunosuppressive and steroids, which the patient is already on Dietary reconsulted and made recommendations. Patient was intolerant to bolus feeding tube feeding continued, TwoCal HN, goal rate 50ml/hr. Free Water Flushes and additional free water flush with Maury bid. Sepsis (fever, tachycardia, lactic acid) suspect secondary to UTI Patient did have febrile illness, leukocytosis which have resolved Urine culture does indicate Pseudomonas, enterococcus faecalis Status post vancomycin/cefepime/Levaquin IV Cipro 500 mg twice daily for total antibiotic treatment of 14 days Bacterial conjunctivitis of left eye, resolved. - Status post Ofloxacin eye drops. Supportive care. 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 04/26/17 Coccyx decubitus Ankle ulceration Wound care nurse is following the patient for management Patient with specialty bed Mood disorder, depression Psychiatry evaluated patient and made recommendations Prozac 40 mg daily Seroquel 25 mg at bedtime Diabetes Glucose continues to be well controlled DVT Prophylaxis: Lovenox, TEDs/SCDs. Records reviewed extensively. No change in current treatment plan. Discharge Planning Case management assisting. Problem Qualifiers (1) GI bleed: (2) UTI (urinary tract infection): (3) Effusion of hip joint: Dotty Pacheco May 10, 2017 15:48
--- NOTE | 2017-05-10 16:29 | HHI.HCPN ---
Reason for visit a. To assist with evaluation and management of symptoms including: debility , encephalopathy b. To assist medical decision maker(s) with: better understanding of current medical conditions; weighing benefits/burdens of medical treatment options; making medical treatment decisions. . Subjective/Interval History Patient seen and examined today, EMR reviewed. Patient appears to be resting comfortably in bed, in no apparent distress. Patient is nonverbal, he is able to communicate, via nodding his head yes or no. Patient is interactive and appears to be in far greater spirits compared to previous exam when he became extremely emotional with inconsolable crying. Patient denies any pain, shortness of breath, or discomfort. Patient has been hemodynamically stable, last available laboratory data from 04/29/17 was unremarkable. . Advance Directives Living Will: Never completed Health Care Surrogate: Copy in medical record Durable Power of Slab Tripper: Never completed Advance Directive Specifics Health Care Surrogate(s): Patricia Harrell . Objective Vital Signs Date Time Temp Pulse Resp B/P (MAP) Pulse Ox O2 Delivery O2 Flow Rate FiO2 05/10/17 08:00 100.3 105 20 115/78 (90) 94 05/09/17 20:00 96.0 87 20 106/80 (89) 96 Intake & Output 05/10/17 05/10/17 07:00 19:00 Intake Total 950 ml Output Total 175 ml Balance 775 ml Intake Oral 0 ml Tube Feeding 450 ml Tube Irrigant 500 ml Output Urine Total 175 ml # Bowel Movements 0 1 . Physical Exam CONSTITUTIONAL/GENERAL: This is a thin, middle aged male patient, unable to verbalize, able to nod head yes or no to simple questions. TUBES/LINES/DRAINS: PEG tube, indwelling maurice catheter SKIN: No jaundice. Skin temperature appropriate. Not diaphoretic. EYES: Pupils equal and round and reactive. Nystagmus, able to move eyes up and down on command. ENT: Hearing grossly normal. Nose without bleeding or purulent drainage. Moderate amount of clear, oral secretions. CARDIOVASCULAR: Regular rate and rhythm. No Murmurs, gallops, or rubs. No JVD. Peripheral pulses symmetric. RESPIRATORY/CHEST: Shallow respirations with diminished air exchange, scattered rhonchi. GASTROINTESTINAL: Abdomen soft, non-tender, nondistended. PEG tube in place. No guarding. Bowel sounds present. GENITOURINARY: Without palpable bladder distension. Catheter draining clear yellow urine MUSCULOSKELETAL: Extremities without clubbing, cyanosis, or edema. Muscle wasting noted. Contractures in all four extremities. NEUROLOGICAL: Has some purposeful movement, moving eyes upward to indicate yes, and gazing downward to indicate no. Some motion of head movements. 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 Unable to move RUE. . Diagnostic Tests Procedures -08/19/16 -PEG tube placement -08/17/16- lumbar puncture -10/11/16ultrasound guided aspiration, right hip region. . 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 Now bed bound , completely dependent for all ADLs. Receiving artificial nutrition via PEG tube. Flexion contractures in bilateral lower extremities. (2) Encephalopathy Comment: Patient with diagnosis of neuro-behcet. Patient is bed bound, non- verbal. Eyes are open, but do not track. Pertinent Non-Medical Issues Psychosocial: Reported as . Documented as single in EMR. Patient reportedly has multiple children. Spiritual: No spiritual affiliations. Legal: Patricia Harrell presented as and has been acting as healthcare proxy. Ethical issues impacting care: Patricia Harrell presented as and has been acting as healthcare proxy. . Important Contacts Patricia Mendoza. [phone]. . Prognosis Mr. Mendoza is a 47-year-old male with a past medical history of neuro-Behet' s syndrome diagnosed at [facility], left frontal CVA discovered in November 2015, diabetes mellitus type 2, mural thrombus, brain abscess in 2014, meningitis, hypertension and bedbound state. Patient presented to the ED on 08/13/16 via EMS were reports of decreased oral intake for the prior 2-3 days and skin tear to left upper extremity. He was admitted for sepsis. Patient is at high risk for further complications/setbacks, continued decline and . Code Status: Full Code Plan * FULL CODE * DECISION MAKING: Patient consistently reaffirms that if he should lose capacity, he wishes for Patricia Harrell to act as the [facility] decision maker. * GOALS OF CARE: Aggressive. * Discussed patient with case planner Gustavo Heriberto, legal is currently working with the [facility] consulate to establish passport/travel issues so the patient can be transferred back to [place] to be cared for by his mother. * SYMPTOMS: * =debility: Multifactorial, PT following and working with the patient, passive ROM exercises performed during PT sessions as patient has minimal capability to participate, with only the ability to slightly participation with the LUE. * =dysphagia: Secondary to neuro-Behet's syndrome, S/P PEG tube placement , receiving TF, NPO indefinitely secondary to disease process and ongoing risk of aspiration. * Palliative care will continue to follow-up with this patient as needed, but goals of care is firmly established and it remains aggressive . Attestation To help prompt me to consider important information that might be impacting today's encounter and assessment, information from prior notes written by myself or my colleagues may have been "brought forward" into today's note. My signature on this note, however, is an attestation that I personally performed the exam, history, and/or decision-making noted today, and, unless otherwise indicated, the interactions with patient, family, and staff as well as the review of records all occurred today. I also attest that the listed assessment and stated plan reflect my best clinical judgment today based on the combination of historical information, prior notes, and today's exam/ interactions. When time spent is documented, it refers only to time spent today by the signer, or if indicated, combined time spent today by collaborating physician/nurse practitioner. Nora Bullock May 10, 2017 16:29
[2017-05-10 20:00] VITALS: BP 133/92; PULSE 83; RESP 16; TEMP 96.9; O2SAT 98
[2017-05-10] MEDS: QUEtiapine FUMARATE 25 MG TAB PO SCH (21:47)
[2017-05-11] MEDS: azaTHIOprine 50 MG TAB PEG SCH ×2 (05:55→17:53)
[2017-05-11 08:00] VITALS: BP 116/80; PULSE 90; RESP 20; TEMP 97.5; O2SAT 100
[2017-05-11] MEDS: FLUoxetine HCL LIQUID 20 MG/5 ML CUP PEG SCH (09:01)
[2017-05-11] MEDS: LANSOPRAZOLE SOLUTAB 30 MG TAB PEG SCH ×2 (09:02→22:34)
[2017-05-11] MEDS: LACTOBACILLUS ACIDOPHILUS TAB PEG SCH ×2 (09:02→22:35)
[2017-05-11] MEDS: SENNOSIDES SYRUP 8.8 MG/5 ML CUP PEG SCH (09:02)
[2017-05-11] MEDS: predniSONE 20 MG TAB PEG SCH (09:03)
[2017-05-11] MEDS: LACTIC ACID (AMMONIUM LACTATE) 12% LOTION 225 GM BTL TOPICAL SCH ×2 (09:04→22:34)
[2017-05-11] MEDS: ENOXAPARIN SODIUM 40 MG/0.4 ML SYRINGE SQ SCH (09:04)
[2017-05-11] MEDS: JUVEN POWDER 1 PACK G-TUBE SCH ×2 (09:05→22:35)
--- NOTE | 2017-05-11 11:45 | HHI.PR ---
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 Patient seen and examined, lying in bed comfortably. Denies any new acute complaints. Denies pain. Nodding appropriately. No change in clinical condition. Objective Vitals Vital Signs Date Time Temp Pulse Resp B/P (MAP) Pulse Ox O2 Delivery O2 Flow Rate FiO2 05/11/17 08:00 97.5 90 20 116/80 (92) 100 05/10/17 20:00 96.9 83 16 133/92 (106) 98 I/O 05/10/17 05/10/17 05/10/17 05/11/17 05/11/17 05/11/17 07:00 15:00 23:00 07:00 15:00 23:00 Intake Total 950 ml 600 ml 600 ml Output Total 900 ml 325 ml Balance 950 ml -300 ml 275 ml Intake Oral 0 ml Tube Feeding 450 ml 400 ml 400 ml Tube Irrigant 500 ml Other 200 ml 200 ml Output Urine Total 900 ml 325 ml # Bowel Movements 1 0 Imaging Last Impressions Chest X-Ray 04/26/17 0000 Signed Impressions: Service Date/Time: Wednesday, April 26, 2017 13:12 - CONCLUSION: 1. Poor inspiratory result. 2. Minimal perihilar atelectatic changes bilaterally. 3. Mild scoliosis of the thoracic spine. Tomi Joseph MD Hip Aspiration/Injection 10/08/16 0000 Signed Impressions: Service Date/Time: Tuesday, October 11, 2016 13:41 - CONCLUSION: Uncomplicated aspiration as above. Minimal fluid on the right. No identifiable fluid on the left Clayton Max MD Lower Extremity Ultrasound 10/06/16 0000 Signed Impressions: Service Date/Time: September 17:29 - CONCLUSION: Normal examination. Josafat Meyer MD CT Angiography 10/06/16 0000 Signed Impressions: Service Date/Time: September 20:31 - CONCLUSION: Minimal right upper lobe infiltrate and basilar atelectasis. No evidence of pulmonary embolism.. Josafat Meyer MD Abdomen/Pelvis CT 10/06/16 0000 Signed Impressions: Service Date/Time: September 20:31 - CONCLUSION: No evidence of pelvic abscess. Josafat Meyer MD Upper Extremity Ultrasound 09/28/16 0000 Signed Impressions: Service Date/Time: Wednesday, September 28, 2016 19:15 - CONCLUSION: 1. Occlusive superficial thrombosis in the left cephalic vein near the antecubital fossa. No deep venous thrombosis. Sumit Bourgeois MD Renal Ultrasound 08/28/16 Signed Impressions: Service Date/Time: Sunday, August 28, 2016 20:03 - CONCLUSION: Mild increased echotexture of both kidneys. Baldev Vu MD Lumbar Puncture Fluoroscopy 08/17/16 Signed Impressions: Service Date/Time: Wednesday, August 17, 2016 12:26 - CONCLUSION: Uncomplicated fluoroscopically guided lumbar puncture. Vishal Beckford Jr., MD Brain MRI 08/17/16 Signed Impressions: Service Date/Time: Wednesday, August 17, 2016 13:28 - CONCLUSION: Remote long-standing areas of abnormality in the brainstem and middle cerebellar peduncle consistent with remote infarcts or contusion. No acute intracranial abnormality. Chacho Bright MD Abdomen X-Ray 08/17/16 Signed Impressions: Service Date/Time: Wednesday, August 17, 2016 13:02 - CONCLUSION: No evidence of obstruction. No MRI incompatible foreign body is identified. Chacho Bright MD Head CT 08/16/16 Signed Impressions: Service Date/Time: Tuesday, August 16, 2016 09:55 - CONCLUSION: Chronic ischemic changes left frontal lobe possibly from evidence of previous ventriculostomy placement, unchanged. No acute intracranial abnormality. Gen Potter MD Modified Barium Swallow 08/15/16 Signed Impressions: Service Date/Time: Monday, August 15, 2016 00:00 - CONCLUSION: See report above and speech pathology report Chacho Bright MD Objective Remarks GENERAL: Well-developed cachectic and contracted male patient in NAD. Awake and alert, nonverbal. Nodding appropriately. SKIN: Warm and dry. No rash. HEENT: Normocephalic. Atraumatic. Pupils equal and round. No scleral icterus. No injection or drainage. No nasal bleeding or discharge. Mucous membranes pink and moist. NECK: Supple. Trachea midline. CARDIOVASCULAR: Regular rate and rhythm. S1, S2 noted. No murmur appreciated. RESPIRATORY: No accessory muscle use. Clear to auscultation. Breath sounds equal bilaterally. GASTROINTESTINAL: Abdomen soft, non-tender, nondistended. Normoactive bowel sounds x4. No guarding. PEG tube noted, no erythema or drainage from site, c/d/ i. MUSCULOSKELETAL: No obvious deformities. Extremities without clubbing, cyanosis , or edema. 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 (2) Hospital acquired PNA ICD Code: J18.9 - Pneumonia, unspecified organism Status: Resolved (3) Sepsis ICD Code: A41.9 - Sepsis, unspecified organism Status: Resolved (4) Encephalopathy ICD Code: G93.40 - Encephalopathy, unspecified Status: Resolved (5) GI bleed ICD Code: K92.2 - Gastrointestinal hemorrhage, unspecified Status: Resolved (6) HCAP (healthcare-associated pneumonia) ICD Code: J18.9 - Pneumonia, unspecified organism Status: Resolved (7) UTI (urinary tract infection) ICD Code: N39.0 - Urinary tract infection, site not specified Status: Resolved (8) Leucocytosis ICD Code: D72.829 - Elevated white blood cell count, unspecified Status: Resolved (9) Fever ICD Code: R50.9 - Fever, unspecified Status: Resolved (10) Effusion of hip joint ICD Code: M25.459 - Effusion, unspecified hip Status: Acute (11) 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 Patient was followed by neurology. Aphasic at baseline. Continue Imuran, prednisone EEG shows mild to moderate slowing at times of various depending on the epoch , there was no epileptic activity seen Continue PT/OT Palliative care still following the patient. Still indicating full code and full aggressive measures. Ophthalmology consulted and indicates that his visual problems are secondary to neuro-Behcet's syndrome Recommending immunosuppressive and steroids, which the patient is already on Dietary reconsulted and made recommendations. Patient was intolerant to bolus feeding tube feeding continued, TwoCal HN, goal rate 50ml/hr. Free Water Flushes and additional free water flush with Maury bid. Sepsis (fever, tachycardia, lactic acid) suspect secondary to UTI Patient did have febrile illness, leukocytosis which have resolved Urine culture does indicate Pseudomonas, enterococcus faecalis Status post vancomycin/cefepime/Levaquin IV Status post Cipro 500 mg twice daily for total antibiotic treatment of 14 days (end 05/10) Bacterial conjunctivitis of left eye, resolved. - Status post Ofloxacin eye drops. Supportive care. 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 04/26/17 Coccyx decubitus Ankle ulceration Wound care nurse is following the patient for management Patient with specialty bed Mood disorder, depression Psychiatry evaluated patient and made recommendations Prozac 40 mg daily Seroquel 25 mg at bedtime Diabetes Glucose continues to be well controlled DVT Prophylaxis: Lovenox, TEDs/SCDs. Records reviewed extensively. No change in current treatment plan. Discharge Planning Case management assisting. Problem Qualifiers (1) GI bleed: (2) UTI (urinary tract infection): (3) Effusion of hip joint: Dotty Pacheco May 11, 2017 11:45
[2017-05-11 20:00] VITALS: BP 114/74; PULSE 79; RESP 20; TEMP 96; O2SAT 99
[2017-05-11] MEDS: QUEtiapine FUMARATE 25 MG TAB PO SCH (22:34)
[2017-05-12 05:26] LABS: AUTOMATED NEUTROPHIL # 5.7 TH/MM3 (1.8-7.7); BASOPHIL # 0.1 TH/MM3 (0-0.2); BASOPHIL % 0.6 % (0.0-2.0); EOSINOPHIL # 0.1 TH/MM3 (0-0.4); EOSINOPHIL % 0.6 % (0.0-4.0); HEMATOCRIT 40.7 % (39.0-51.0); HEMOGLOBIN 13.1 GM/DL (13.0-17.0); LYMPH % 23.1 % (9.0-44.0); MEAN CELL VOLUME 91.9 FL (80.0-100.0); MEAN CORPUSCULAR HEMOGLOBIN 29.7 PG (27.0-34.0); MEAN CORPUSCULAR HGB CONC 32.3 % (32.0-36.0); MEAN PLATELET VOLUME 8.4 FL (7.0-11.0); MONOCYTE # 0.7 TH/MM3 (0-0.9); NEUT % 67.7 % (16.0-70.0); PLATELET COUNT 326 TH/MM3 (150-450); RED BLOOD COUNT 4.43 MIL/MM3 (4.50-5.90); RED CELL DISTRIBUTION WIDTH 15.2 % (11.6-17.2); WHITE BLOOD COUNT 8.6 TH/MM3 (4.0-11.0)
[2017-05-12 05:40] LABS: CALCIUM 8.7 MG/DL (8.5-10.1)
[2017-05-12 05:41] LABS: BICARBONATE 30.7 MEQ/L (21.0-32.0)
[2017-05-12 05:44] LABS: CREATININE 0.75 MG/DL (0.60-1.30)
[2017-05-12] MEDS: azaTHIOprine 50 MG TAB PEG SCH ×2 (06:18→17:16)
[2017-05-12 08:00] VITALS: BP 118/84; PULSE 95; RESP 14; TEMP 96.6; O2SAT 99
--- NOTE | 2017-05-12 09:19 | HHI.PR ---
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 Patient seen and examined, lying in bed, aide at bedside. Patient denies pain, fever, chills, cough, shortness of breath or abdominal pain, n/v/d. Denies any changes. Objective Vitals Vital Signs Date Time Temp Pulse Resp B/P (MAP) Pulse Ox O2 Delivery O2 Flow Rate FiO2 05/11/17 20:00 96.0 79 20 114/74 (87) 99 I/O 05/11/17 05/11/17 05/11/17 05/12/17 05/12/17 05/12/17 07:00 15:00 23:00 07:00 15:00 23:00 Intake Total 600 ml 0 ml Output Total 325 ml 350 ml 550 ml Balance 275 ml -350 ml -550 ml Intake Oral 0 ml Tube Feeding 400 ml Other 200 ml Output Urine Total 325 ml 350 ml 550 ml # Bowel Movements 0 1 Result Diagram: 05/12/17 0512 05/12/17 0512 Imaging Last Impressions Chest X-Ray 04/26/17 0000 Signed Impressions: Service Date/Time: Wednesday, April 26, 2017 13:12 - CONCLUSION: 1. Poor inspiratory result. 2. Minimal perihilar atelectatic changes bilaterally. 3. Mild scoliosis of the thoracic spine. Tomi Joseph MD Hip Aspiration/Injection 10/08/16 0000 Signed Impressions: Service Date/Time: Tuesday, October 11, 2016 13:41 - CONCLUSION: Uncomplicated aspiration as above. Minimal fluid on the right. No identifiable fluid on the left Clayton Max MD Lower Extremity Ultrasound 10/06/16 0000 Signed Impressions: Service Date/Time: September 17:29 - CONCLUSION: Normal examination. Josafat Meyer MD CT Angiography 10/06/16 0000 Signed Impressions: Service Date/Time: September 20:31 - CONCLUSION: Minimal right upper lobe infiltrate and basilar atelectasis. No evidence of pulmonary embolism.. Josafat Meyer MD Abdomen/Pelvis CT 10/06/16 0000 Signed Impressions: Service Date/Time: September 20:31 - CONCLUSION: No evidence of pelvic abscess. Josafat Meyer MD Upper Extremity Ultrasound 4/5/17 0000 Signed Impressions: Service Date/Time: Wednesday, September 28, 2016 19:15 - CONCLUSION: 1. Occlusive superficial thrombosis in the left cephalic vein near the antecubital fossa. No deep venous thrombosis. Sumit Bourgeois MD Renal Ultrasound 08/28/16 Signed Impressions: Service Date/Time: Sunday, August 28, 2016 20:03 - CONCLUSION: Mild increased echotexture of both kidneys. Baldev Vu MD Lumbar Puncture Fluoroscopy 08/17/16 Signed Impressions: Service Date/Time: Wednesday, August 17, 2016 12:26 - CONCLUSION: Uncomplicated fluoroscopically guided lumbar puncture. Vishal Beckford Jr., MD Brain MRI 08/17/16 Signed Impressions: Service Date/Time: Wednesday, August 17, 2016 13:28 - CONCLUSION: Remote long-standing areas of abnormality in the brainstem and middle cerebellar peduncle consistent with remote infarcts or contusion. No acute intracranial abnormality. Chacho Bright MD Abdomen X-Ray 08/17/16 Signed Impressions: Service Date/Time: Wednesday, August 17, 2016 13:02 - CONCLUSION: No evidence of obstruction. No MRI incompatible foreign body is identified. Chacho Bright MD Head CT 08/16/16 Signed Impressions: Service Date/Time: Tuesday, August 16, 2016 09:55 - CONCLUSION: Chronic ischemic changes left frontal lobe possibly from evidence of previous ventriculostomy placement, unchanged. No acute intracranial abnormality. Gen Potter MD Modified Barium Swallow 08/15/16 Signed Impressions: Service Date/Time: Monday, August 15, 2016 00:00 - CONCLUSION: See report above and speech pathology report Chacho Bright MD Objective Remarks GENERAL: Well-developed cachectic and contracted male patient in NAD. Awake and alert, nonverbal. Nodding appropriately. SKIN: Warm and dry. No rash. HEENT: Normocephalic. Atraumatic. Pupils equal and round. No scleral icterus. No injection or drainage. No nasal bleeding or discharge. Mucous membranes pink and moist. NECK: Supple. Trachea midline. CARDIOVASCULAR: Regular rate and rhythm. S1, S2 noted. No murmur appreciated. RESPIRATORY: No accessory muscle use. Course and rhonchi throughout lung [place]. Breath sounds equal bilaterally. GASTROINTESTINAL: Abdomen soft, non-tender, nondistended. Normoactive bowel sounds x4. No guarding. PEG tube noted, no erythema or drainage from site, c/d/ i. MUSCULOSKELETAL: No obvious deformities. Extremities without clubbing, cyanosis , or edema. 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 (2) Hospital acquired PNA ICD Code: J18.9 - Pneumonia, unspecified organism Status: Resolved (3) Sepsis ICD Code: A41.9 - Sepsis, unspecified organism Status: Resolved (4) Encephalopathy ICD Code: G93.40 - Encephalopathy, unspecified Status: Resolved (5) GI bleed ICD Code: K92.2 - Gastrointestinal hemorrhage, unspecified Status: Resolved (6) HCAP (healthcare-associated pneumonia) ICD Code: J18.9 - Pneumonia, unspecified organism Status: Resolved (7) UTI (urinary tract infection) ICD Code: N39.0 - Urinary tract infection, site not specified Status: Resolved (8) Leucocytosis ICD Code: D72.829 - Elevated white blood cell count, unspecified Status: Resolved (9) Fever ICD Code: R50.9 - Fever, unspecified Status: Resolved (10) Effusion of hip joint ICD Code: M25.459 - Effusion, unspecified hip Status: Acute (11) 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 Patient was followed by neurology. Aphasic at baseline. Continue Imuran, prednisone EEG shows mild to moderate slowing at times of various depending on the epoch , there was no epileptic activity seen Continue PT/OT Palliative care still following the patient. Still indicating full code and full aggressive measures. Ophthalmology consulted and indicates that his visual problems are secondary to neuro-Behcet's syndrome Recommending immunosuppressive and steroids, which the patient is already on Dietary reconsulted and made recommendations. Patient was intolerant to bolus feeding tube feeding continued, TwoCal HN, goal rate 50ml/hr. Free Water Flushes and additional free water flush with Maury bid. Sepsis (fever, tachycardia, lactic acid) suspect secondary to UTI Patient did have febrile illness, leukocytosis which have resolved Urine culture does indicate Pseudomonas, enterococcus faecalis Status post vancomycin/cefepime/Levaquin IV Status post Cipro 500 mg twice daily for total antibiotic treatment of 14 days (end 05/10) Bacterial conjunctivitis of left eye, resolved. - Status post Ofloxacin eye drops. Supportive care. 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 04/26/17 Coccyx decubitus Ankle ulceration Wound care nurse is following the patient for management Patient with specialty bed Mood disorder, depression Psychiatry evaluated patient and made recommendations Prozac 40 mg daily Seroquel 25 mg at bedtime Diabetes Glucose continues to be well controlled DVT Prophylaxis: Lovenox, TEDs/SCDs. Records reviewed extensively. No change in current treatment plan. Discharge Planning Case management assisting. Problem Qualifiers (1) GI bleed: (2) UTI (urinary tract infection): (3) Effusion of hip joint: Dotty Pacheco May 12, 2017 09:19
[2017-05-12] MEDS: LACTIC ACID (AMMONIUM LACTATE) 12% LOTION 225 GM BTL TOPICAL SCH ×2 (10:50→20:34)
[2017-05-12] MEDS: LACTOBACILLUS ACIDOPHILUS TAB PEG SCH ×2 (10:50→20:33)
[2017-05-12] MEDS: LANSOPRAZOLE SOLUTAB 30 MG TAB PEG SCH ×2 (10:51→20:33)
[2017-05-12] MEDS: SENNOSIDES SYRUP 8.8 MG/5 ML CUP PEG SCH (10:51)
[2017-05-12] MEDS: predniSONE 20 MG TAB PEG SCH (10:51)
[2017-05-12] MEDS: ENOXAPARIN SODIUM 40 MG/0.4 ML SYRINGE SQ SCH (10:51)
[2017-05-12] MEDS: FLUoxetine HCL LIQUID 20 MG/5 ML CUP PEG SCH (10:51)
[2017-05-12] MEDS: JUVEN POWDER 1 PACK G-TUBE SCH ×2 (10:51→20:33)
[2017-05-12 19:15] VITALS: BP 114/73; PULSE 90; RESP 20; TEMP 98.2; O2SAT 98
[2017-05-12] MEDS: QUEtiapine FUMARATE 25 MG TAB PO SCH (20:33)
[2017-05-13] MEDS: azaTHIOprine 50 MG TAB PEG SCH ×2 (05:58→16:54)
[2017-05-13 08:00] VITALS: BP 116/82; PULSE 88; RESP 18; TEMP 97.7; O2SAT 99
[2017-05-13] MEDS: SENNOSIDES SYRUP 8.8 MG/5 ML CUP PEG SCH (09:00)
[2017-05-13] MEDS: JUVEN POWDER 1 PACK G-TUBE SCH ×2 (09:00→22:02)
[2017-05-13] MEDS: FLUoxetine HCL LIQUID 20 MG/5 ML CUP PEG SCH (09:43)
[2017-05-13] MEDS: LACTOBACILLUS ACIDOPHILUS TAB PEG SCH ×2 (09:44→22:02)
[2017-05-13] MEDS: LACTIC ACID (AMMONIUM LACTATE) 12% LOTION 225 GM BTL TOPICAL SCH ×2 (09:44→22:02)
[2017-05-13] MEDS: predniSONE 20 MG TAB PEG SCH (09:44)
[2017-05-13] MEDS: LANSOPRAZOLE SOLUTAB 30 MG TAB PEG SCH ×2 (09:44→22:02)
[2017-05-13] MEDS: ENOXAPARIN SODIUM 40 MG/0.4 ML SYRINGE SQ SCH (09:44)
--- NOTE | 2017-05-13 14:59 | HHI.PR ---
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 Patient seen and examined. Lying in bed comfortably. No acute changes. No change in clinical condition. Objective Vitals Vital Signs Date Time Temp Pulse Resp B/P (MAP) Pulse Ox O2 Delivery O2 Flow Rate FiO2 05/13/17 08:00 97.7 88 18 116/82 (93) 99 05/12/17 19:15 98.2 90 20 114/73 (87) 98 I/O 05/12/17 05/12/17 05/12/17 05/13/17 05/13/17 05/13/17 07:00 15:00 23:00 07:00 15:00 23:00 Output Total 550 ml 375 ml 500 ml Balance -550 ml -375 ml -500 ml Output Urine Total 550 ml 375 ml 500 ml # Bowel Movements 1 0 2 Result Diagram: 05/12/17 0512 05/12/17 0512 Imaging Last Impressions Chest X-Ray 04/26/17 0000 Signed Impressions: Service Date/Time: Wednesday, April 26, 2017 13:12 - CONCLUSION: 1. Poor inspiratory result. 2. Minimal perihilar atelectatic changes bilaterally. 3. Mild scoliosis of the thoracic spine. Tomi Jsoeph MD Hip Aspiration/Injection 10/08/16 0000 Signed Impressions: Service Date/Time: Tuesday, October 11, 2016 13:41 - CONCLUSION: Uncomplicated aspiration as above. Minimal fluid on the right. No identifiable fluid on the left Clayton Max MD Lower Extremity Ultrasound 10/06/16 0000 Signed Impressions: Service Date/Time: September 17:29 - CONCLUSION: Normal examination. Josafat Meyer MD CT Angiography 10/06/16 0000 Signed Impressions: Service Date/Time: September 20:31 - CONCLUSION: Minimal right upper lobe infiltrate and basilar atelectasis. No evidence of pulmonary embolism.. Josafat Meyer MD Abdomen/Pelvis CT 10/06/16 0000 Signed Impressions: Service Date/Time: September 20:31 - CONCLUSION: No evidence of pelvic abscess. Josafat Meyer MD Upper Extremity Ultrasound 09/28/16 0000 Signed Impressions: Service Date/Time: Wednesday, September 28, 2016 19:15 - CONCLUSION: 1. Occlusive superficial thrombosis in the left cephalic vein near the antecubital fossa. No deep venous thrombosis. Sumit Bourgeois MD Renal Ultrasound 08/28/16 Signed Impressions: Service Date/Time: Sunday, August 28, 2016 20:03 - CONCLUSION: Mild increased echotexture of both kidneys. Baldev Vu MD Lumbar Puncture Fluoroscopy 08/17/16 Signed Impressions: Service Date/Time: Wednesday, August 17, 2016 12:26 - CONCLUSION: Uncomplicated fluoroscopically guided lumbar puncture. Vishal Beckford Jr., MD Brain MRI 08/17/16 Signed Impressions: Service Date/Time: Wednesday, August 17, 2016 13:28 - CONCLUSION: Remote long-standing areas of abnormality in the brainstem and middle cerebellar peduncle consistent with remote infarcts or contusion. No acute intracranial abnormality. Chacho Bright MD Abdomen X-Ray 08/17/16 Signed Impressions: Service Date/Time: Wednesday, August 17, 2016 13:02 - CONCLUSION: No evidence of obstruction. No MRI incompatible foreign body is identified. Chacho Bright MD Head CT 08/16/16 Signed Impressions: Service Date/Time: Tuesday, August 16, 2016 09:55 - CONCLUSION: Chronic ischemic changes left frontal lobe possibly from evidence of previous ventriculostomy placement, unchanged. No acute intracranial abnormality. Gen Potter MD Modified Barium Swallow 08/15/16 Signed Impressions: Service Date/Time: Monday, August 15, 2016 00:00 - CONCLUSION: See report above and speech pathology report Chacho Bright MD Objective Remarks GENERAL: Well-developed cachectic and contracted male patient in NAD. Awake and alert, nonverbal. Nodding appropriately. SKIN: Warm and dry. No rash. HEENT: Normocephalic. Atraumatic. Pupils equal and round. No scleral icterus. No injection or drainage. No nasal bleeding or discharge. Mucous membranes pink and moist. NECK: Supple. Trachea midline. CARDIOVASCULAR: Regular rate and rhythm. S1, S2 noted. No murmur appreciated. RESPIRATORY: No accessory muscle use. Course and rhonchi throughout lung [place]. Breath sounds equal bilaterally. GASTROINTESTINAL: Abdomen soft, non-tender, nondistended. Normoactive bowel sounds x4. No guarding. PEG tube noted, no erythema or drainage from site, c/d/ i. MUSCULOSKELETAL: No obvious deformities. Extremities without clubbing, cyanosis , or edema. 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 (2) Hospital acquired PNA ICD Code: J18.9 - Pneumonia, unspecified organism Status: Resolved (3) Sepsis ICD Code: A41.9 - Sepsis, unspecified organism Status: Resolved (4) Encephalopathy ICD Code: G93.40 - Encephalopathy, unspecified Status: Resolved (5) GI bleed ICD Code: K92.2 - Gastrointestinal hemorrhage, unspecified Status: Resolved (6) HCAP (healthcare-associated pneumonia) ICD Code: J18.9 - Pneumonia, unspecified organism Status: Resolved (7) UTI (urinary tract infection) ICD Code: N39.0 - Urinary tract infection, site not specified Status: Resolved (8) Leucocytosis ICD Code: D72.829 - Elevated white blood cell count, unspecified Status: Resolved (9) Fever ICD Code: R50.9 - Fever, unspecified Status: Resolved (10) Effusion of hip joint ICD Code: M25.459 - Effusion, unspecified hip Status: Acute (11) 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 Patient was followed by neurology. Aphasic at baseline. Continue Imuran, prednisone EEG shows mild to moderate slowing at times of various depending on the epoch , there was no epileptic activity seen Continue PT/OT Palliative care still following the patient. Still indicating full code and full aggressive measures. Ophthalmology consulted and indicates that his visual problems are secondary to neuro-Behcet's syndrome Recommending immunosuppressive and steroids, which the patient is already on Dietary reconsulted and made recommendations. Patient was intolerant to bolus feeding tube feeding continued, TwoCal HN, goal rate 50ml/hr. Free Water Flushes and additional free water flush with Maury bid. Sepsis (fever, tachycardia, lactic acid) suspect secondary to UTI Patient did have febrile illness, leukocytosis which have resolved Urine culture does indicate Pseudomonas, enterococcus faecalis Status post vancomycin/cefepime/Levaquin IV Status post Cipro 500 mg twice daily for total antibiotic treatment of 14 days (end 05/10) Bacterial conjunctivitis of left eye, resolved. - Status post Ofloxacin eye drops. Supportive care. 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 04/26/17 Coccyx decubitus Ankle ulceration Wound care nurse is following the patient for management Patient with specialty bed Mood disorder, depression Psychiatry evaluated patient and made recommendations Prozac 40 mg daily Seroquel 25 mg at bedtime Diabetes Glucose continues to be well controlled DVT Prophylaxis: Lovenox, TEDs/SCDs. Records reviewed extensively. No change in current treatment plan. Discharge Planning Case management assisting. Problem Qualifiers (1) GI bleed: (2) UTI (urinary tract infection): (3) Effusion of hip joint: Dotty Pacheco May 13, 2017 14:59
[2017-05-13 20:00] VITALS: BP 97/66; PULSE 98; RESP 20; TEMP 96.9; O2SAT 97
[2017-05-13] MEDS: HYOSCYAMINE SOLN 0.125 MG/ML 15 ML BTL PEG PRN (22:02)
[2017-05-13] MEDS: QUEtiapine FUMARATE 25 MG TAB PO SCH (22:02)
[2017-05-14] MEDS: azaTHIOprine 50 MG TAB PEG SCH ×2 (04:34→18:00)
[2017-05-14 08:00] VITALS: BP 117/83; PULSE 94; RESP 18; TEMP 96.7; O2SAT 98
[2017-05-14] MEDS: FLUoxetine HCL LIQUID 20 MG/5 ML CUP PEG SCH (09:00)
[2017-05-14] MEDS: SENNOSIDES SYRUP 8.8 MG/5 ML CUP PEG SCH (09:11)
[2017-05-14] MEDS: predniSONE 20 MG TAB PEG SCH (09:11)
[2017-05-14] MEDS: LANSOPRAZOLE SOLUTAB 30 MG TAB PEG SCH ×2 (09:11→21:46)
[2017-05-14] MEDS: HYOSCYAMINE SOLN 0.125 MG/ML 15 ML BTL PEG PRN ×2 (09:12→21:46)
[2017-05-14] MEDS: ENOXAPARIN SODIUM 40 MG/0.4 ML SYRINGE SQ SCH (09:12)
[2017-05-14] MEDS: LACTIC ACID (AMMONIUM LACTATE) 12% LOTION 225 GM BTL TOPICAL SCH ×2 (09:13→21:00)
[2017-05-14] MEDS: LACTOBACILLUS ACIDOPHILUS TAB PEG SCH ×2 (09:13→21:46)
[2017-05-14] MEDS: JUVEN POWDER 1 PACK G-TUBE SCH ×2 (09:14→21:00)
--- NOTE | 2017-05-14 11:21 | HHI.PR ---
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 Patient seen and examined RN at bedside. No reports of any acute events or change in clinical condition overnight. Patient denies any pain or shortness of breath. Afebrile. VSS. Objective Vitals Vital Signs Date Time Temp Pulse Resp B/P (MAP) Pulse Ox O2 Delivery O2 Flow Rate FiO2 05/14/17 08:00 96.7 94 18 117/83 (94) 98 05/13/17 20:00 96.9 98 20 97/66 (76) 97 I/O 05/13/17 05/13/17 05/13/17 05/14/17 05/14/17 05/14/17 06:59 14:59 22:59 06:59 14:59 22:59 Intake Total 980 ml 500 ml 1400 ml Output Total 500 ml 1000 ml 450 ml Balance -500 ml 980 ml -500 ml 950 ml Intake Oral 0 ml Tube Feeding 300 ml 300 ml 600 ml Tube Irrigant 680 ml 200 ml 400 ml Other 400 ml Output Urine Total 500 ml 1000 ml 450 ml Gastric Drainage Total 0 ml # Bowel Movements 2 1 Result Diagram: 05/12/17 0512 05/12/17 0512 Imaging Last Impressions Chest X-Ray 04/26/17 0000 Signed Impressions: Service Date/Time: Wednesday, April 26, 2017 13:12 - CONCLUSION: 1. Poor inspiratory result. 2. Minimal perihilar atelectatic changes bilaterally. 3. Mild scoliosis of the thoracic spine. Tomi Joseph MD Hip Aspiration/Injection 10/08/16 0000 Signed Impressions: Service Date/Time: Tuesday, October 11, 2016 13:41 - CONCLUSION: Uncomplicated aspiration as above. Minimal fluid on the right. No identifiable fluid on the left Clayton Max MD Lower Extremity Ultrasound 10/06/16 0000 Signed Impressions: Service Date/Time: September 17:29 - CONCLUSION: Normal examination. Josafat Meyer MD CT Angiography 10/06/16 0000 Signed Impressions: Service Date/Time: September 20:31 - CONCLUSION: Minimal right upper lobe infiltrate and basilar atelectasis. No evidence of pulmonary embolism.. Josafat Meyer MD Abdomen/Pelvis CT 10/06/16 0000 Signed Impressions: Service Date/Time: September 20:31 - CONCLUSION: No evidence of pelvic abscess. Josafat Meyer MD Upper Extremity Ultrasound 09/28/16 0000 Signed Impressions: Service Date/Time: Wednesday, September 28, 2016 19:15 - CONCLUSION: 1. Occlusive superficial thrombosis in the left cephalic vein near the antecubital fossa. No deep venous thrombosis. Sumit Bourgeois MD Renal Ultrasound 08/28/16 Signed Impressions: Service Date/Time: Sunday, August 28, 2016 20:03 - CONCLUSION: Mild increased echotexture of both kidneys. Baldev Vu MD Lumbar Puncture Fluoroscopy 08/17/16 0000 Signed Impressions: Service Date/Time: Wednesday, August 17, 2016 12:26 - CONCLUSION: Uncomplicated fluoroscopically guided lumbar puncture. Vishal Beckford Jr., MD Brain MRI 08/17/16 Signed Impressions: Service Date/Time: Wednesday, August 17, 2016 13:28 - CONCLUSION: Remote long-standing areas of abnormality in the brainstem and middle cerebellar peduncle consistent with remote infarcts or contusion. No acute intracranial abnormality. Chacho Bright MD Abdomen X-Ray 08/17/16 Signed Impressions: Service Date/Time: Wednesday, August 17, 2016 13:02 - CONCLUSION: No evidence of obstruction. No MRI incompatible foreign body is identified. Chacho Bright MD Head CT 08/16/16 0000 Signed Impressions: Service Date/Time: Tuesday, August 16, 2016 09:55 - CONCLUSION: Chronic ischemic changes left frontal lobe possibly from evidence of previous ventriculostomy placement, unchanged. No acute intracranial abnormality. Gen Potter MD Modified Barium Swallow 08/15/16 0000 Signed Impressions: Service Date/Time: Monday, August 15, 2016 00:00 - CONCLUSION: See report above and speech pathology report Chacho Bright MD Objective Remarks GENERAL: Well-developed cachectic and contracted male patient in NAD. Awake and alert, nonverbal. Nodding appropriately. SKIN: Warm and dry. No rash. HEENT: Normocephalic. Atraumatic. Pupils equal and round. No scleral icterus. No injection or drainage. No nasal bleeding or discharge. Mucous membranes pink and moist. NECK: Supple. Trachea midline. CARDIOVASCULAR: Regular rate and rhythm. S1, S2 noted. No murmur appreciated. RESPIRATORY: No accessory muscle use. Course and rhonchi throughout lung [place]. Breath sounds equal bilaterally. GASTROINTESTINAL: Abdomen soft, non-tender, nondistended. Normoactive bowel sounds x4. No guarding. PEG tube noted, no erythema or drainage from site, c/d/ i. MUSCULOSKELETAL: No obvious deformities. Extremities without clubbing, cyanosis , or edema. 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 (2) Hospital acquired PNA ICD Code: J18.9 - Pneumonia, unspecified organism Status: Resolved (3) Sepsis ICD Code: A41.9 - Sepsis, unspecified organism Status: Resolved (4) Encephalopathy ICD Code: G93.40 - Encephalopathy, unspecified Status: Resolved (5) GI bleed ICD Code: K92.2 - Gastrointestinal hemorrhage, unspecified Status: Resolved (6) HCAP (healthcare-associated pneumonia) ICD Code: J18.9 - Pneumonia, unspecified organism Status: Resolved (7) UTI (urinary tract infection) ICD Code: N39.0 - Urinary tract infection, site not specified Status: Resolved (8) Leucocytosis ICD Code: D72.829 - Elevated white blood cell count, unspecified Status: Resolved (9) Fever ICD Code: R50.9 - Fever, unspecified Status: Resolved (10) Effusion of hip joint ICD Code: M25.459 - Effusion, unspecified hip Status: Acute (11) 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 Patient was followed by neurology. Aphasic at baseline. Continue Imuran, prednisone EEG shows mild to moderate slowing at times of various depending on the epoch , there was no epileptic activity seen Continue PT/OT Palliative care still following the patient. Still indicating full code and full aggressive measures. Ophthalmology consulted and indicates that his visual problems are secondary to neuro-Behcet's syndrome Recommending immunosuppressive and steroids, which the patient is already on Dietary reconsulted and made recommendations. Patient was intolerant to bolus feeding tube feeding continued, TwoCal HN, goal rate 50ml/hr. Free Water Flushes and additional free water flush with Maury bid. Sepsis (fever, tachycardia, lactic acid) suspect secondary to UTI. Resolved. 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 04/26/17 Coccyx decubitus Ankle ulceration Wound care nurse is following the patient for management Patient with specialty bed Mood disorder, depression Psychiatry evaluated patient and made recommendations Prozac 40 mg daily Seroquel 25 mg at bedtime Diabetes Glucose continues to be well controlled DVT Prophylaxis: Lovenox, TEDs/SCDs. Records reviewed extensively. No change in current treatment plan. Discharge Planning Case management assisting. Problem Qualifiers (1) GI bleed: (2) UTI (urinary tract infection): (3) Effusion of hip joint: Dotty Pacheco May 14, 2017 11:20
[2017-05-14 20:00] VITALS: BP 132/79; PULSE 80; RESP 17; TEMP 98.1; O2SAT 98
[2017-05-14] MEDS: QUEtiapine FUMARATE 25 MG TAB PO SCH (21:46)
[2017-05-15] MEDS: azaTHIOprine 50 MG TAB PEG SCH ×2 (07:00→17:25)
[2017-05-15 08:00] VITALS: BP 115/73; PULSE 87; RESP 20; TEMP 97.8; O2SAT 96
[2017-05-15] MEDS: LACTIC ACID (AMMONIUM LACTATE) 12% LOTION 225 GM BTL TOPICAL SCH ×3 (09:00→21:39)
[2017-05-15] MEDS: LACTOBACILLUS ACIDOPHILUS TAB PEG SCH ×2 (09:26→21:39)
[2017-05-15] MEDS: predniSONE 20 MG TAB PEG SCH (09:26)
[2017-05-15] MEDS: HYOSCYAMINE SOLN 0.125 MG/ML 15 ML BTL PEG PRN (09:26)
[2017-05-15] MEDS: FLUoxetine HCL LIQUID 20 MG/5 ML CUP PEG SCH (09:26)
[2017-05-15] MEDS: SENNOSIDES SYRUP 8.8 MG/5 ML CUP PEG SCH (09:26)
[2017-05-15] MEDS: ENOXAPARIN SODIUM 40 MG/0.4 ML SYRINGE SQ SCH (09:27)
[2017-05-15] MEDS: LANSOPRAZOLE SOLUTAB 30 MG TAB PEG SCH ×2 (09:27→21:39)
[2017-05-15] MEDS: JUVEN POWDER 1 PACK G-TUBE SCH ×2 (09:28→21:39)
--- NOTE | 2017-05-15 13:26 | HHI.PR ---
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 Patient seen and examined, lying in bed comfortably. Patient tearful today. Denies any pain or complaints. Afebrile. VSS. Lungs are clear. No change in clinical condition. Objective Vitals Vital Signs Date Time Temp Pulse Resp B/P (MAP) Pulse Ox O2 Delivery O2 Flow Rate FiO2 05/15/17 08:00 97.8 87 20 115/73 (87) 96 05/14/17 20:00 98.1 80 17 132/79 (96) 98 I/O 05/14/17 05/14/17 05/14/17 05/15/17 05/15/17 05/15/17 07:00 15:00 23:00 07:00 15:00 23:00 Intake Total 1400 ml 1140 ml 200 ml Output Total 450 ml 920 ml 450 ml Balance 950 ml -920 ml 690 ml 200 ml Intake Oral 0 ml Tube Feeding 600 ml 500 ml Tube Irrigant 400 ml 640 ml Other 400 ml 200 ml Output Urine Total 450 ml 920 ml 450 ml Gastric Drainage Total 0 ml # Bowel Movements 1 1 Result Diagram: 05/12/17 0512 05/12/17 0512 Imaging Last Impressions Chest X-Ray 04/26/17 0000 Signed Impressions: Service Date/Time: Wednesday, April 26, 2017 13:12 - CONCLUSION: 1. Poor inspiratory result. 2. Minimal perihilar atelectatic changes bilaterally. 3. Mild scoliosis of the thoracic spine. Tomi Joseph MD Hip Aspiration/Injection 10/08/16 0000 Signed Impressions: Service Date/Time: Tuesday, October 11, 2016 13:41 - CONCLUSION: Uncomplicated aspiration as above. Minimal fluid on the right. No identifiable fluid on the left Clayton Max MD Lower Extremity Ultrasound 10/06/16 0000 Signed Impressions: Service Date/Time: September 17:29 - CONCLUSION: Normal examination. Josafat Meyer MD CT Angiography 10/06/16 0000 Signed Impressions: Service Date/Time: September 20:31 - CONCLUSION: Minimal right upper lobe infiltrate and basilar atelectasis. No evidence of pulmonary embolism.. Josafat Meyer MD Abdomen/Pelvis CT 10/06/16 0000 Signed Impressions: Service Date/Time: September 20:31 - CONCLUSION: No evidence of pelvic abscess. Josafat Meyer MD Upper Extremity Ultrasound 09/28/16 Signed Impressions: Service Date/Time: Wednesday, September 28, 2016 19:15 - CONCLUSION: 1. Occlusive superficial thrombosis in the left cephalic vein near the antecubital fossa. No deep venous thrombosis. Sumit Bourgeois MD Renal Ultrasound 08/28/16 Signed Impressions: Service Date/Time: Sunday, August 28, 2016 20:03 - CONCLUSION: Mild increased echotexture of both kidneys. Baldev Vu MD Lumbar Puncture Fluoroscopy 08/17/16 0000 Signed Impressions: Service Date/Time: Wednesday, August 17, 2016 12:26 - CONCLUSION: Uncomplicated fluoroscopically guided lumbar puncture. Vishal Beckford Jr., MD Brain MRI 08/17/16 Signed Impressions: Service Date/Time: Wednesday, August 17, 2016 13:28 - CONCLUSION: Remote long-standing areas of abnormality in the brainstem and middle cerebellar peduncle consistent with remote infarcts or contusion. No acute intracranial abnormality. Chacho Bright MD Abdomen X-Ray 08/17/16 Signed Impressions: Service Date/Time: Wednesday, August 17, 2016 13:02 - CONCLUSION: No evidence of obstruction. No MRI incompatible foreign body is identified. Chacho Bright MD Head CT 08/16/16 Signed Impressions: Service Date/Time: Tuesday, August 16, 2016 09:55 - CONCLUSION: Chronic ischemic changes left frontal lobe possibly from evidence of previous ventriculostomy placement, unchanged. No acute intracranial abnormality. Gen Potter MD Modified Barium Swallow 08/15/16 0000 Signed Impressions: Service Date/Time: Monday, August 15, 2016 00:00 - CONCLUSION: See report above and speech pathology report Chacho Bright MD Objective Remarks GENERAL: Well-developed cachectic and contracted male patient in NAD. Awake and alert, nonverbal. Nodding appropriately. Tearful. SKIN: Warm and dry. No rash. HEENT: Normocephalic. Atraumatic. Pupils equal and round. No scleral icterus. No injection or drainage. No nasal bleeding or discharge. Mucous membranes pink and moist. NECK: Supple. Trachea midline. CARDIOVASCULAR: Regular rate and rhythm. S1, S2 noted. No murmur appreciated. RESPIRATORY: No accessory muscle use. Course and rhonchi throughout lung [place]. Breath sounds equal bilaterally. GASTROINTESTINAL: Abdomen soft, non-tender, nondistended. Normoactive bowel sounds x4. No guarding. PEG tube noted, no erythema or drainage from site, c/d/ i. MUSCULOSKELETAL: No obvious deformities. Extremities without clubbing, cyanosis , or edema. 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 (2) Hospital acquired PNA ICD Code: J18.9 - Pneumonia, unspecified organism Status: Resolved (3) Sepsis ICD Code: A41.9 - Sepsis, unspecified organism Status: Resolved (4) Encephalopathy ICD Code: G93.40 - Encephalopathy, unspecified Status: Resolved (5) GI bleed ICD Code: K92.2 - Gastrointestinal hemorrhage, unspecified Status: Resolved (6) HCAP (healthcare-associated pneumonia) ICD Code: J18.9 - Pneumonia, unspecified organism Status: Resolved (7) UTI (urinary tract infection) ICD Code: N39.0 - Urinary tract infection, site not specified Status: Resolved (8) Leucocytosis ICD Code: D72.829 - Elevated white blood cell count, unspecified Status: Resolved (9) Fever ICD Code: R50.9 - Fever, unspecified Status: Resolved (10) Effusion of hip joint ICD Code: M25.459 - Effusion, unspecified hip Status: Acute (11) 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 Patient was followed by neurology. Aphasic at baseline. Continue Imuran, prednisone EEG shows mild to moderate slowing at times of various depending on the epoch , there was no epileptic activity seen Continue PT/OT Palliative care still following the patient. Still indicating full code and full aggressive measures. Ophthalmology consulted and indicates that his visual problems are secondary to neuro-Behcet's syndrome Recommending immunosuppressive and steroids, which the patient is already on Dietary reconsulted and made recommendations. Patient was intolerant to bolus feeding tube feeding continued, TwoCal HN, goal rate 50ml/hr. Free Water Flushes and additional free water flush with Maury bid. Sepsis (fever, tachycardia, lactic acid) suspect secondary to UTI. Resolved. 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 04/26/17 Coccyx decubitus Ankle ulceration Wound care nurse is following the patient for management Patient with specialty bed Mood disorder, depression Psychiatry evaluated patient and made recommendations Prozac 40 mg daily Seroquel 25 mg at bedtime Diabetes Glucose continues to be well controlled DVT Prophylaxis: Lovenox, TEDs/SCDs. Records reviewed extensively. No change in current treatment plan. Discharge Planning Case management assisting. Problem Qualifiers (1) GI bleed: (2) UTI (urinary tract infection): (3) Effusion of hip joint: Dotty Pacheco [employer]IL REPA[employer] PERSON May 15, 2017 13:26
[2017-05-15 20:00] VITALS: BP 103/74; PULSE 80; RESP 20; TEMP 97.1; O2SAT 97
[2017-05-15] MEDS: QUEtiapine FUMARATE 25 MG TAB PO SCH (21:39)
[2017-05-16] MEDS: azaTHIOprine 50 MG TAB PEG SCH ×2 (05:46→17:20)
[2017-05-16 09:15] VITALS: BP 109/83; PULSE 81; RESP 18; TEMP 96.3; O2SAT 95
[2017-05-16] MEDS: JUVEN POWDER 1 PACK G-TUBE SCH ×2 (09:18→22:17)
[2017-05-16] MEDS: SENNOSIDES SYRUP 8.8 MG/5 ML CUP PEG SCH (09:19)
[2017-05-16] MEDS: LACTIC ACID (AMMONIUM LACTATE) 12% LOTION 225 GM BTL TOPICAL SCH ×2 (09:19→22:18)
[2017-05-16] MEDS: LANSOPRAZOLE SOLUTAB 30 MG TAB PEG SCH ×2 (09:19→22:17)
[2017-05-16] MEDS: predniSONE 20 MG TAB PEG SCH (09:19)
[2017-05-16] MEDS: LACTOBACILLUS ACIDOPHILUS TAB PEG SCH ×2 (09:19→22:18)
[2017-05-16] MEDS: ENOXAPARIN SODIUM 40 MG/0.4 ML SYRINGE SQ SCH (09:19)
[2017-05-16] MEDS: FLUoxetine HCL LIQUID 20 MG/5 ML CUP PEG SCH (09:30)
--- NOTE | 2017-05-16 10:42 | HHI.PR ---
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 Patient denies any new complaints. No change in clinical status. No indication of any issues overnight. Objective Vitals Vital Signs Date Time Temp Pulse Resp B/P (MAP) Pulse Ox O2 Delivery O2 Flow Rate FiO2 05/16/17 09:15 96.3 81 18 109/83 (92) 95 05/15/17 20:00 97.1 80 20 103/74 (84) 97 I/O 05/15/17 05/15/17 05/15/17 05/16/17 05/16/17 05/16/17 07:00 15:00 23:00 07:00 15:00 23:00 Intake Total 1140 ml 200 ml 788 ml 1240 ml Output Total 450 ml 650 ml 450 ml Balance 690 ml 200 ml 138 ml 790 ml Intake Oral 0 ml 0 ml Tube Feeding 500 ml 388 ml 600 ml Tube Irrigant 640 ml 400 ml 640 ml Other 200 ml Output Urine Total 450 ml 650 ml 450 ml # Bowel Movements 1 2 Result Diagram: 05/12/1712 05/12/17 0512 Objective Remarks GENERAL: Well-developed, cachectic and contracted. HEENT: Head is normocephalic without any lesions or masses noted. Facial features are symmetric. Eyes: Extraocular muscles are intact. Conjunctivae were clear. NECK: Trachea midline no deviation. CARDIAC: Regular rhythm, tachycardia noted. S1/S2 are heard. No murmurs gallops or rubs. LUNGS: Clear to auscultation bilaterally. No wheeze, rhonchi or rales. No use of accessory muscles on inspiration or expiration. ABDOMEN: Soft, nontender. Nondistended. Bowel sounds heard in all 4 quadrants. No organomegaly or masses. Negative rebound, negative guarding. PEG tube noted without any excoriation. EXTREMITIES: No edema, pulses are equal bilaterally. No cyanosis or clubbing. Procedures 07/19/16 EGD with PEG tube placement 09/27/16 colonoscopy Urinary Catheter: Yes Assessment to: Continue Kowalski insert reason: Obstruction/Retention Date of Insertion: Apr 26, 2017 Vascular Central Line Catheter: No A/P Assessment and Plan Neuro-Behcet, history of frontal lobe CVA, encephalopathy, history of meningitis , Blurred vision/double vision, urinary retention, chronic No new changes on imaging. Patient was followed by neurology. Aphasic at baseline. Continue Imuran, prednisone EEG shows mild to moderate slowing at times of various depending on the epoch , there was no epileptic activity seen Continue PT/OT Palliative care still following the patient. 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 04/26/17, --Decreased oral intake and dysphagia on initial presentation Speech therapy evaluated patient. S/P barium swallow. Patient with severe dysphagia. GI was consulted and PEG tube was placed. Patient was intolerant to bolus feeding Dietary reconsulted and made recommendations Sepsis secondary to urinary tract infection, Patient did have febrile illness, leukocytosis which have resolved Urine culture does indicate Pseudomonas, enterococcus faecalis Status post vancomycin/cefepime/Levaquin IV Status post Cipro 500 mg twice daily for total antibiotic treatment of 14 days Coccyx decubitus. Ankle ulceration Wound care nurse is following the patient for management Patient with specialty bed Mood disorder, depression Psychiatry evaluated patient and made recommendations Prozac 40 mg daily Seroquel 25 mg at bedtime Diabetes Glucose continues to be well controlled, DVT Prophylaxis: Lovenox, TEDs/SCDs. Records were reviewed. Awaiting case management for discharge planning. No change in current treatment plan. Discharge Planning Case management for discharge planning, Ede Richardson May 16, 2017 10:42
[2017-05-16 20:00] VITALS: BP 116/85; PULSE 82; RESP 20; TEMP 97.7; O2SAT 99
[2017-05-16] MEDS: QUEtiapine FUMARATE 25 MG TAB PO SCH (22:18)
[2017-05-17] MEDS: azaTHIOprine 50 MG TAB PEG SCH ×2 (05:01→17:22)
[2017-05-17 08:00] VITALS: BP 104/78; PULSE 88; RESP 14; TEMP 96; O2SAT 95
[2017-05-17] MEDS: FLUoxetine HCL LIQUID 20 MG/5 ML CUP PEG SCH (08:28)
[2017-05-17] MEDS: LACTOBACILLUS ACIDOPHILUS TAB PEG SCH ×2 (08:29→21:46)
[2017-05-17] MEDS: SENNOSIDES SYRUP 8.8 MG/5 ML CUP PEG SCH (08:29)
[2017-05-17] MEDS: LANSOPRAZOLE SOLUTAB 30 MG TAB PEG SCH ×2 (08:30→21:46)
[2017-05-17] MEDS: predniSONE 20 MG TAB PEG SCH (08:30)
[2017-05-17] MEDS: JUVEN POWDER 1 PACK G-TUBE SCH ×2 (08:31→22:28)
[2017-05-17] MEDS: ENOXAPARIN SODIUM 40 MG/0.4 ML SYRINGE SQ SCH (08:31)
[2017-05-17] MEDS: LACTIC ACID (AMMONIUM LACTATE) 12% LOTION 225 GM BTL TOPICAL SCH ×2 (08:32→21:45)
--- NOTE | 2017-05-17 08:55 | HHI.PR ---
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 Patient denies any new complaints. No change in clinical status. Vital signs are stable. Objective Vitals Vital Signs Date Time Temp Pulse Resp B/P (MAP) Pulse Ox O2 Delivery O2 Flow Rate FiO2 05/16/17 20:00 97.7 82 20 116/85 (95) 99 05/16/17 09:15 96.3 81 18 109/83 (92) 95 I/O 05/16/17 05/16/17 05/16/17 05/17/17 05/17/17 05/17/17 07:00 15:00 23:00 07:00 15:00 23:00 Intake Total 1240 ml 0 ml 200 ml 1200 ml Output Total 450 ml 450 ml 375 ml Balance 790 ml 0 ml -250 ml 825 ml Intake Oral 0 ml 0 ml 0 ml 0 ml Tube Feeding 600 ml 1000 ml Tube Irrigant 640 ml Other 200 ml 200 ml Output Urine Total 450 ml 450 ml 375 ml # Bowel Movements 2 1 Objective Remarks GENERAL: Well-developed, cachectic and contracted. HEENT: Head is normocephalic without any lesions or masses noted. Facial features are symmetric. Eyes: Extraocular muscles are intact. Conjunctivae were clear. NECK: Trachea midline no deviation. CARDIAC: Regular rhythm, tachycardia noted. S1/S2 are heard. No murmurs gallops or rubs. LUNGS: Clear to auscultation bilaterally. No wheeze, rhonchi or rales. No use of accessory muscles on inspiration or expiration. ABDOMEN: Soft, nontender. Nondistended. Bowel sounds heard in all 4 quadrants. No organomegaly or masses. Negative rebound, negative guarding. PEG tube noted without any excoriation. EXTREMITIES: No edema, pulses are equal bilaterally. No cyanosis or clubbing. Procedures 07/19/16 EGD with PEG tube placement 09/27/16 colonoscopy Urinary Catheter: Yes Assessment to: Continue Kowalski insert reason: Obstruction/Retention Date of Insertion: Apr 26, 2017 Vascular Central Line Catheter: No A/P Assessment and Plan Neuro-Behcet, history of frontal lobe CVA, encephalopathy, history of meningitis , Blurred vision/double vision, urinary retention, chronic No new changes on imaging. Patient was followed by neurology. Aphasic at baseline. Continue Imuran, prednisone EEG shows mild to moderate slowing at times of various depending on the epoch , there was no epileptic activity seen Continue PT/OT Palliative care still following the patient. 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 04/26/17, --Decreased oral intake and dysphagia on initial presentation Speech therapy evaluated patient. S/P barium swallow. Patient with severe dysphagia. GI was consulted and PEG tube was placed. Patient was intolerant to bolus feeding Dietary reconsulted and made recommendations Sepsis secondary to urinary tract infection, Patient did have febrile illness, leukocytosis which have resolved Urine culture does indicate Pseudomonas, enterococcus faecalis Status post vancomycin/cefepime/Levaquin IV Status post Cipro 500 mg twice daily for total antibiotic treatment of 14 days Coccyx decubitus. Ankle ulceration Wound care nurse is following the patient for management Patient with specialty bed Mood disorder, depression Psychiatry evaluated patient and made recommendations Prozac 40 mg daily Seroquel 25 mg at bedtime Diabetes Glucose continues to be well controlled, DVT Prophylaxis: Lovenox, TEDs/SCDs. Records were reviewed. No change in current treatment plan. Awaiting case management for discharge planning. Discharge Planning Case management for discharge planning, Ede Richardson May 17, 2017 08:55
[2017-05-17 20:00] VITALS: BP 125/68; PULSE 79; RESP 20; TEMP 96.1; O2SAT 95
[2017-05-17] MEDS: QUEtiapine FUMARATE 25 MG TAB PO SCH (21:46)
[2017-05-18] MEDS: azaTHIOprine 50 MG TAB PEG SCH ×2 (06:45→18:40)
[2017-05-18 08:00] VITALS: BP 120/78; PULSE 90; RESP 16; TEMP 97.8; O2SAT 96
[2017-05-18] MEDS: SENNOSIDES SYRUP 8.8 MG/5 ML CUP PEG SCH (10:47)
[2017-05-18] MEDS: JUVEN POWDER 1 PACK G-TUBE SCH ×2 (10:47→21:45)
[2017-05-18] MEDS: LANSOPRAZOLE SOLUTAB 30 MG TAB PEG SCH ×2 (10:49→21:45)
[2017-05-18] MEDS: predniSONE 20 MG TAB PEG SCH (10:49)
[2017-05-18] MEDS: LACTOBACILLUS ACIDOPHILUS TAB PEG SCH ×2 (10:49→21:44)
[2017-05-18] MEDS: ENOXAPARIN SODIUM 40 MG/0.4 ML SYRINGE SQ SCH (10:49)
[2017-05-18] MEDS: LACTIC ACID (AMMONIUM LACTATE) 12% LOTION 225 GM BTL TOPICAL SCH ×2 (10:49→21:44)
[2017-05-18] MEDS: FLUoxetine HCL LIQUID 20 MG/5 ML CUP PEG SCH (11:00)
--- NOTE | 2017-05-18 11:43 | HHI.PR ---
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 Patient denies any new complaints. No change in clinical status. Vital signs are stable, afebrile Objective Vitals Vital Signs Date Time Temp Pulse Resp B/P (MAP) Pulse Ox O2 Delivery O2 Flow Rate FiO2 05/18/17 08:00 97.8 90 16 120/78 (92) 96 05/17/17 20:00 96.1 79 20 125/68 (87) 95 I/O 05/17/17 05/17/17 05/17/17 05/18/17 05/18/17 05/18/17 07:00 15:00 23:00 07:00 15:00 23:00 Intake Total 1200 ml 890 ml Output Total 375 ml 400 ml 450 ml Balance 825 ml -400 ml 440 ml Intake Oral 0 ml 0 ml Tube Feeding 1000 ml 650 ml Tube Irrigant 240 ml Other 200 ml Output Urine Total 375 ml 400 ml 450 ml # Bowel Movements 1 0 1 Objective Remarks GENERAL: Well-developed, cachectic and contracted. HEENT: Head is normocephalic without any lesions or masses noted. Facial features are symmetric. Eyes: Extraocular muscles are intact. Conjunctivae were clear. NECK: Trachea midline no deviation. CARDIAC: Regular rhythm, tachycardia noted. S1/S2 are heard. No murmurs gallops or rubs. LUNGS: Clear to auscultation bilaterally. No wheeze, rhonchi or rales. No use of accessory muscles on inspiration or expiration. ABDOMEN: Soft, nontender. Nondistended. Bowel sounds heard in all 4 quadrants. No organomegaly or masses. Negative rebound, negative guarding. PEG tube noted without any excoriation. EXTREMITIES: No edema, pulses are equal bilaterally. No cyanosis or clubbing. Procedures 07/19/16 EGD with PEG tube placement 09/27/16 colonoscopy Urinary Catheter: Yes Assessment to: Continue Kowalski insert reason: Obstruction/Retention Date of Insertion: Apr 26, 2017 Vascular Central Line Catheter: No A/P Assessment and Plan Neuro-Behcet, history of frontal lobe CVA, encephalopathy, history of meningitis , Blurred vision/double vision, urinary retention, chronic No new changes on imaging. Patient was followed by neurology. Aphasic at baseline. Continue Imuran, prednisone EEG shows mild to moderate slowing at times of various depending on the epoch , there was no epileptic activity seen Continue PT/OT Palliative care still following the patient. 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 04/26/17, --Decreased oral intake and dysphagia on initial presentation Speech therapy evaluated patient. S/P barium swallow. Patient with severe dysphagia. GI was consulted and PEG tube was placed. Patient was intolerant to bolus feeding Dietary reconsulted and made recommendations Sepsis secondary to urinary tract infection, Patient did have febrile illness, leukocytosis which have resolved Urine culture does indicate Pseudomonas, enterococcus faecalis Status post vancomycin/cefepime/Levaquin IV Status post Cipro 500 mg twice daily for total antibiotic treatment of 14 days Coccyx decubitus. Ankle ulceration Wound care nurse is following the patient for management Patient with specialty bed Mood disorder, depression Psychiatry evaluated patient and made recommendations Prozac 40 mg daily Seroquel 25 mg at bedtime Diabetes Glucose continues to be well controlled, DVT Prophylaxis: Lovenox, TEDs/SCDs. Records were reviewed. Awaiting case management for discharge planning. No change in current treatment plan. Discharge Planning Case management for discharge planning, Ede Richardson May 18, 2017 11:43
[2017-05-18 19:15] VITALS: BP 111/78; PULSE 80; RESP 16; TEMP 98.3; O2SAT 95
[2017-05-18] MEDS: QUEtiapine FUMARATE 25 MG TAB PO SCH (21:45)
[2017-05-19] MEDS: azaTHIOprine 50 MG TAB PEG SCH ×2 (05:24→17:14)
[2017-05-19] MEDS: LACTOBACILLUS ACIDOPHILUS TAB PEG SCH ×2 (07:56→21:03)
[2017-05-19] MEDS: JUVEN POWDER 1 PACK G-TUBE SCH ×2 (07:56→21:02)
[2017-05-19] MEDS: predniSONE 20 MG TAB PEG SCH (07:56)
[2017-05-19] MEDS: LANSOPRAZOLE SOLUTAB 30 MG TAB PEG SCH ×2 (07:57→21:03)
[2017-05-19] MEDS: SENNOSIDES SYRUP 8.8 MG/5 ML CUP PEG SCH (07:57)
[2017-05-19] MEDS: FLUoxetine HCL LIQUID 20 MG/5 ML CUP PEG SCH (07:57)
[2017-05-19] MEDS: ENOXAPARIN SODIUM 40 MG/0.4 ML SYRINGE SQ SCH (07:57)
[2017-05-19] MEDS: LACTIC ACID (AMMONIUM LACTATE) 12% LOTION 225 GM BTL TOPICAL SCH ×2 (08:13→21:03)
--- NOTE | 2017-05-19 08:21 | HHI.PR ---
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 Patient lying in bed comfortable. Denies any new complaints. No change in clinical status. Vital signs are stable, afebrile Objective Vitals Vital Signs Date Time Temp Pulse Resp B/P (MAP) Pulse Ox O2 Delivery O2 Flow Rate FiO2 05/18/17 19:15 98.3 80 16 111/78 (89) 95 I/O 05/18/17 05/18/17 05/18/17 05/19/17 05/19/17 05/19/17 07:00 15:00 23:00 07:00 15:00 23:00 Intake Total 890 ml 1040 ml 1200 ml Output Total 450 ml 500 ml 1000 ml Balance 440 ml 540 ml 200 ml Intake Oral 0 ml 0 ml Tube Feeding 650 ml 600 ml 600 ml Tube Irrigant 240 ml 240 ml 180 ml Other 200 ml 420 ml Output Urine Total 450 ml 500 ml 1000 ml # Bowel Movements 1 1 Objective Remarks GENERAL: Well-developed, cachectic and contracted. HEENT: Head is normocephalic without any lesions or masses noted. Facial features are symmetric. Eyes: Extraocular muscles are intact. Conjunctivae were clear. NECK: Trachea midline no deviation. CARDIAC: Regular rhythm, tachycardia noted. S1/S2 are heard. No murmurs gallops or rubs. LUNGS: Clear to auscultation bilaterally. No wheeze, rhonchi or rales. No use of accessory muscles on inspiration or expiration. ABDOMEN: Soft, nontender. Nondistended. Bowel sounds heard in all 4 quadrants. No organomegaly or masses. Negative rebound, negative guarding. PEG tube noted without any excoriation. EXTREMITIES: No edema, pulses are equal bilaterally. No cyanosis or clubbing. Procedures 07/19/16 EGD with PEG tube placement 09/27/16 colonoscopy Urinary Catheter: Yes Assessment to: Continue Kowalski insert reason: Obstruction/Retention Date of Insertion: Apr 26, 2017 Vascular Central Line Catheter: No A/P Assessment and Plan Neuro-Behcet, history of frontal lobe CVA, encephalopathy, history of meningitis , Blurred vision/double vision, urinary retention, chronic No new changes on imaging. Patient was followed by neurology. Aphasic at baseline. Continue Imuran, prednisone EEG shows mild to moderate slowing at times of various depending on the epoch , there was no epileptic activity seen Continue PT/OT Palliative care still following the patient. 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 04/26/17, --Decreased oral intake and dysphagia on initial presentation Speech therapy evaluated patient. S/P barium swallow. Patient with severe dysphagia. GI was consulted and PEG tube was placed. Patient was intolerant to bolus feeding Dietary reconsulted and made recommendations Sepsis secondary to urinary tract infection, Patient did have febrile illness, leukocytosis which have resolved Urine culture does indicate Pseudomonas, enterococcus faecalis Status post vancomycin/cefepime/Levaquin IV Status post Cipro 500 mg twice daily for total antibiotic treatment of 14 days Coccyx decubitus. Ankle ulceration Wound care nurse is following the patient for management Patient with specialty bed Mood disorder, depression Psychiatry evaluated patient and made recommendations Prozac 40 mg daily Seroquel 25 mg at bedtime Diabetes Glucose continues to be well controlled, DVT Prophylaxis: Lovenox, TEDs/SCDs. Records were reviewed. No change in current treatment plan. Awaiting case management for discharge planning. Discharge Planning Case management for discharge planning, Ede Richardson May 19, 2017 08:21
[2017-05-19 12:00] VITALS: BP 115/91; PULSE 84; RESP 18; TEMP 96.2; O2SAT 96
[2017-05-19 20:00] VITALS: BP 100/72; PULSE 76; RESP 20; TEMP 97.7; O2SAT 99
[2017-05-19] MEDS: QUEtiapine FUMARATE 25 MG TAB PO SCH (21:03)
[2017-05-20] MEDS: azaTHIOprine 50 MG TAB PEG SCH ×2 (05:24→17:01)
[2017-05-20] MEDS: FLUoxetine HCL LIQUID 20 MG/5 ML CUP PEG SCH (08:11)
[2017-05-20] MEDS: SENNOSIDES SYRUP 8.8 MG/5 ML CUP PEG SCH (08:11)
[2017-05-20] MEDS: LACTOBACILLUS ACIDOPHILUS TAB PEG SCH ×2 (08:11→22:17)
[2017-05-20] MEDS: LANSOPRAZOLE SOLUTAB 30 MG TAB PEG SCH ×2 (08:11→22:17)
[2017-05-20] MEDS: predniSONE 20 MG TAB PEG SCH (08:11)
[2017-05-20] MEDS: LACTIC ACID (AMMONIUM LACTATE) 12% LOTION 225 GM BTL TOPICAL SCH ×2 (08:12→22:19)
[2017-05-20] MEDS: ENOXAPARIN SODIUM 40 MG/0.4 ML SYRINGE SQ SCH (08:12)
[2017-05-20] MEDS: JUVEN POWDER 1 PACK G-TUBE SCH ×2 (08:12→22:19)
[2017-05-20 08:57] VITALS: BP 127/73; PULSE 99; RESP 18; TEMP 98.8; O2SAT 95
--- NOTE | 2017-05-20 10:44 | HHI.PR ---
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 Patient denies any new complaints. No change in clinical status. Patient remains afebrile, vital signs are stable Objective Vitals Vital Signs Date Time Temp Pulse Resp B/P (MAP) Pulse Ox O2 Delivery O2 Flow Rate FiO2 05/20/17 08:57 98.8 99 18 127/73 (91) 95 05/19/17 20:00 97.7 76 20 100/72 (81) 99 05/19/17 12:00 96.2 84 18 115/91 (99) 96 I/O 05/19/17 05/19/17 05/19/17 05/20/17 05/20/17 05/20/17 06:59 14:59 22:59 06:59 14:59 22:59 Intake Total 1200 ml 824 ml 1080 ml Output Total 1000 ml 650 ml 550 ml Balance 200 ml 174 ml 530 ml Intake Oral 0 ml Tube Feeding 600 ml 424 ml 600 ml Tube Irrigant 180 ml 400 ml Other 420 ml 480 ml Output Urine Total 1000 ml 650 ml 550 ml # Bowel Movements 1 1 Objective Remarks GENERAL: Well-developed, cachectic and contracted. HEENT: Head is normocephalic without any lesions or masses noted. Facial features are symmetric. Eyes: Extraocular muscles are intact. Conjunctivae were clear. NECK: Trachea midline no deviation. CARDIAC: Regular rhythm, tachycardia noted. S1/S2 are heard. No murmurs gallops or rubs. LUNGS: Clear to auscultation bilaterally. No wheeze, rhonchi or rales. No use of accessory muscles on inspiration or expiration. ABDOMEN: Soft, nontender. Nondistended. Bowel sounds heard in all 4 quadrants. No organomegaly or masses. Negative rebound, negative guarding. PEG tube noted without any excoriation. EXTREMITIES: No edema, pulses are equal bilaterally. No cyanosis or clubbing. Procedures 07/19/16 EGD with PEG tube placement 09/27/16 colonoscopy Urinary Catheter: Yes Assessment to: Continue Kowalski insert reason: Obstruction/Retention Date of Insertion: Apr 26, 2017 Vascular Central Line Catheter: No A/P Assessment and Plan Neuro-Behcet, history of frontal lobe CVA, encephalopathy, history of meningitis , Blurred vision/double vision, urinary retention, chronic No new changes on imaging. Patient was followed by neurology. Aphasic at baseline. Continue Imuran, prednisone EEG shows mild to moderate slowing at times of various depending on the epoch , there was no epileptic activity seen Continue PT/OT Palliative care still following the patient. 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 04/26/17, --Decreased oral intake and dysphagia on initial presentation Speech therapy evaluated patient. S/P barium swallow. Patient with severe dysphagia. GI was consulted and PEG tube was placed. Patient was intolerant to bolus feeding Dietary reconsulted and made recommendations Coccyx decubitus. Ankle ulceration Wound care nurse is following the patient for management Patient with specialty bed Mood disorder, depression Psychiatry evaluated patient and made recommendations Prozac 40 mg daily Seroquel 25 mg at bedtime Diabetes Glucose continues to be well controlled, Sepsis secondary to urinary tract infection, resolved Patient did have febrile illness, leukocytosis which have resolved Urine culture does indicate Pseudomonas, enterococcus faecalis Status post vancomycin/cefepime/Levaquin IV Status post Cipro 500 mg twice daily for total antibiotic treatment of 14 days DVT Prophylaxis: Lovenox, TEDs/SCDs. Records were reviewed. Awaiting case management for discharge planning. No change in current treatment plan. Discharge Planning Case management for discharge planning, Ede Richardson May 20, 2017 10:43
[2017-05-20 20:30] VITALS: BP 124/84; PULSE 88; RESP 18; TEMP 97.4; O2SAT 99
[2017-05-20] MEDS: QUEtiapine FUMARATE 25 MG TAB PO SCH (22:16)
[2017-05-21] MEDS: azaTHIOprine 50 MG TAB PEG SCH ×2 (06:02→18:52)
[2017-05-21 08:00] VITALS: PULSE 96; RESP 22; TEMP 98.7; O2SAT 95
--- NOTE | 2017-05-21 08:13 | HHI.PR ---
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 Patient denies any new complaints. Vital signs are stable, afebrile Objective Vitals Vital Signs Date Time Temp Pulse Resp B/P (MAP) Pulse Ox O2 Delivery O2 Flow Rate FiO2 05/20/17 20:30 97.4 88 18 124/84 (97) 99 05/20/17 08:57 98.8 99 18 127/73 (91) 95 I/O 05/20/17 05/20/17 05/20/17 05/21/17 05/21/17 05/21/17 07:00 15:00 23:00 07:00 15:00 23:00 Intake Total 1080 ml 200 ml 700 ml Output Total 550 ml 500 ml Balance 530 ml 200 ml 200 ml Tube Feeding 600 ml 500 ml Other 480 ml 200 ml 200 ml Output Urine Total 550 ml 500 ml # Bowel Movements 1 2 Objective Remarks GENERAL: Well-developed, cachectic and contracted. HEENT: Head is normocephalic without any lesions or masses noted. Facial features are symmetric. Eyes: Extraocular muscles are intact. Conjunctivae were clear. NECK: Trachea midline no deviation. CARDIAC: Regular rhythm, tachycardia noted. S1/S2 are heard. No murmurs gallops or rubs. LUNGS: Clear to auscultation bilaterally. No wheeze, rhonchi or rales. No use of accessory muscles on inspiration or expiration. ABDOMEN: Soft, nontender. Nondistended. Bowel sounds heard in all 4 quadrants. No organomegaly or masses. Negative rebound, negative guarding. PEG tube noted without any excoriation. EXTREMITIES: No edema, pulses are equal bilaterally. No cyanosis or clubbing. Procedures 07/19/16 EGD with PEG tube placement 09/27/16 colonoscopy Urinary Catheter: Yes Assessment to: Continue Kowalski insert reason: Obstruction/Retention Date of Insertion: Apr 26, 2017 Vascular Central Line Catheter: No A/P Assessment and Plan Neuro-Behcet, history of frontal lobe CVA, encephalopathy, history of meningitis , Blurred vision/double vision, urinary retention, chronic No new changes on imaging. Patient was followed by neurology. Aphasic at baseline. Continue Imuran, prednisone EEG shows mild to moderate slowing at times of various depending on the epoch , there was no epileptic activity seen Continue PT/OT Palliative care still following the patient. 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 04/26/17, --Decreased oral intake and dysphagia on initial presentation Speech therapy evaluated patient. S/P barium swallow. Patient with severe dysphagia. GI was consulted and PEG tube was placed. Patient was intolerant to bolus feeding Dietary reconsulted and made recommendations Coccyx decubitus. Ankle ulceration Wound care nurse is following the patient for management Patient with specialty bed Mood disorder, depression Psychiatry evaluated patient and made recommendations Prozac 40 mg daily Seroquel 25 mg at bedtime Diabetes Glucose continues to be well controlled, Sepsis secondary to urinary tract infection, resolved Patient did have febrile illness, leukocytosis which have resolved Urine culture does indicate Pseudomonas, enterococcus faecalis Status post vancomycin/cefepime/Levaquin IV Status post Cipro 500 mg twice daily for total antibiotic treatment of 14 days DVT Prophylaxis: Lovenox, TEDs/SCDs. Records were reviewed. No change in current treatment plan. Awaiting case management for discharge planning. Discharge Planning Case management for discharge planning, Ede Richardson May 21, 2017 08:13
[2017-05-21] MEDS: LANSOPRAZOLE SOLUTAB 30 MG TAB PEG SCH ×2 (10:06→22:43)
[2017-05-21] MEDS: ENOXAPARIN SODIUM 40 MG/0.4 ML SYRINGE SQ SCH (10:06)
[2017-05-21] MEDS: FLUoxetine HCL LIQUID 20 MG/5 ML CUP PEG SCH (10:06)
[2017-05-21] MEDS: SENNOSIDES SYRUP 8.8 MG/5 ML CUP PEG SCH (10:06)
[2017-05-21] MEDS: predniSONE 20 MG TAB PEG SCH (10:07)
[2017-05-21] MEDS: LACTOBACILLUS ACIDOPHILUS TAB PEG SCH ×2 (10:07→22:43)
[2017-05-21] MEDS: JUVEN POWDER 1 PACK G-TUBE SCH ×2 (18:53→22:43)
[2017-05-21] MEDS: LACTIC ACID (AMMONIUM LACTATE) 12% LOTION 225 GM BTL TOPICAL SCH ×2 (18:53→22:43)
[2017-05-21 21:43] VITALS: O2SAT 94
[2017-05-21 21:48] VITALS: BP 111/71; PULSE 97; RESP 18; TEMP 98.1; O2SAT 97
[2017-05-21] MEDS: QUEtiapine FUMARATE 25 MG TAB PO SCH (22:43)
[2017-05-22] MEDS: azaTHIOprine 50 MG TAB PEG SCH ×2 (06:06→16:51)
[2017-05-22 08:00] VITALS: BP 130/82; PULSE 95; RESP 16; TEMP 97.7; O2SAT 95
[2017-05-22] MEDS: JUVEN POWDER 1 PACK G-TUBE SCH ×2 (09:00→21:00)
[2017-05-22] MEDS: LACTOBACILLUS ACIDOPHILUS TAB PEG SCH ×2 (09:00→22:27)
[2017-05-22] MEDS: LANSOPRAZOLE SOLUTAB 30 MG TAB PEG SCH ×2 (09:10→22:27)
[2017-05-22] MEDS: SENNOSIDES SYRUP 8.8 MG/5 ML CUP PEG SCH (09:10)
[2017-05-22] MEDS: ENOXAPARIN SODIUM 40 MG/0.4 ML SYRINGE SQ SCH (09:10)
[2017-05-22] MEDS: predniSONE 20 MG TAB PEG SCH (09:10)
[2017-05-22] MEDS: FLUoxetine HCL LIQUID 20 MG/5 ML CUP PEG SCH (09:10)
[2017-05-22] MEDS: LACTIC ACID (AMMONIUM LACTATE) 12% LOTION 225 GM BTL TOPICAL SCH ×2 (09:11→22:27)
--- NOTE | 2017-05-22 09:31 | HHI.PR ---
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 Patient denies any new complaints. No change in clinical status. No acute events overnight Objective Vitals Vital Signs Date Time Temp Pulse Resp B/P (MAP) Pulse Ox O2 Delivery O2 Flow Rate FiO2 05/22/17 08:00 97.7 95 16 130/82 (98) 95 05/21/17 21:48 98.1 97 18 111/71 (84) 97 05/21/17 21:43 94 21 I/O 05/21/17 05/21/17 05/21/17 05/22/17 05/22/17 05/22/17 07:00 15:00 23:00 07:00 15:00 23:00 Intake Total 700 ml 450 ml 576 ml Output Total 500 ml 425 ml 600 ml Balance 200 ml -425 ml 450 ml -24 ml Tube Feeding 500 ml 210 ml 336 ml Tube Irrigant 240 ml 240 ml Other 200 ml Output Urine Total 500 ml 425 ml 600 ml # Bowel Movements 2 0 1 2 Objective Remarks GENERAL: Well-developed, cachectic and contracted. HEENT: Head is normocephalic without any lesions or masses noted. Facial features are symmetric. Eyes: Extraocular muscles are intact. Conjunctivae were clear. NECK: Trachea midline no deviation. CARDIAC: Regular rhythm, tachycardia noted. S1/S2 are heard. No murmurs gallops or rubs. LUNGS: Clear to auscultation bilaterally. No wheeze, rhonchi or rales. No use of accessory muscles on inspiration or expiration. ABDOMEN: Soft, nontender. Nondistended. Bowel sounds heard in all 4 quadrants. No organomegaly or masses. Negative rebound, negative guarding. PEG tube noted without any excoriation. EXTREMITIES: No edema, pulses are equal bilaterally. No cyanosis or clubbing. Procedures 07/19/16 EGD with PEG tube placement 09/27/16 colonoscopy Urinary Catheter: Yes Assessment to: Continue Kowalski insert reason: Obstruction/Retention Date of Insertion: Apr 26, 2017 Vascular Central Line Catheter: No A/P Assessment and Plan Neuro-Behcet, history of frontal lobe CVA, encephalopathy, history of meningitis , Blurred vision/double vision, urinary retention, chronic No new changes on imaging. Patient was followed by neurology. Aphasic at baseline. Continue Imuran, prednisone EEG shows mild to moderate slowing at times of various depending on the epoch , there was no epileptic activity seen Continue PT/OT Palliative care still following the patient. 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 04/26/17, --Decreased oral intake and dysphagia on initial presentation Speech therapy evaluated patient. S/P barium swallow. Patient with severe dysphagia. GI was consulted and PEG tube was placed. Patient was intolerant to bolus feeding Dietary reconsulted and made recommendations Coccyx decubitus. Ankle ulceration Wound care nurse is following the patient for management Patient with specialty bed Mood disorder, depression Psychiatry evaluated patient and made recommendations Prozac 40 mg daily Seroquel 25 mg at bedtime Diabetes Glucose continues to be well controlled, Sepsis secondary to urinary tract infection, resolved Patient did have febrile illness, leukocytosis which have resolved Urine culture does indicate Pseudomonas, enterococcus faecalis Status post vancomycin/cefepime/Levaquin IV Status post Cipro 500 mg twice daily for total antibiotic treatment of 14 days DVT Prophylaxis: Lovenox, TEDs/SCDs. Records were reviewed. Awaiting case management for discharge planning. No change in current treatment plan. Discharge Planning Case management for discharge planning, Ede Richardson May 22, 2017 09:31
[2017-05-22 20:00] VITALS: BP 111/78; PULSE 88; RESP 22; TEMP 97; O2SAT 95
[2017-05-22] MEDS: QUEtiapine FUMARATE 25 MG TAB PO SCH (22:27)
[2017-05-23] MEDS: azaTHIOprine 50 MG TAB PEG SCH ×2 (05:17→18:37)
[2017-05-23 08:32] VITALS: BP 99/81; PULSE 93; RESP 19; TEMP 97.8; O2SAT 95
--- NOTE | 2017-05-23 09:29 | HHI.PR ---
Subjective Remarks Follow up neuro-bechet's syndrome. Patient seen and examined, lying in bed comfortably, awake and alert. Denies any pain or complaints. No reports of any acute events overnight. Objective Vitals Vital Signs Date Time Temp Pulse Resp B/P (MAP) Pulse Ox O2 Delivery O2 Flow Rate FiO2 05/23/17 08:32 97.8 93 19 99/81 (87) 95 05/22/17 20:00 97.0 88 22 111/78 (89) 95 I/O 05/22/17 05/22/17 05/22/17 05/23/17 05/23/17 05/23/17 07:00 15:00 23:00 07:00 15:00 23:00 Intake Total 576 ml 1200 ml 1600 ml Output Total 600 ml 450 ml 100 ml Balance -24 ml 1200 ml 1150 ml -100 ml Intake Oral 0 ml Tube Feeding 336 ml 600 ml 1200 ml Tube Irrigant 240 ml Other 600 ml 400 ml Output Urine Total 600 ml 450 ml 100 ml # Bowel Movements 2 1 Imaging Last Impressions Chest X-Ray 04/26/17 0000 Signed Impressions: Service Date/Time: Wednesday, April 26, 2017 13:12 - CONCLUSION: 1. Poor inspiratory result. 2. Minimal perihilar atelectatic changes bilaterally. 3. Mild scoliosis of the thoracic spine. Tomi Joseph MD Hip Aspiration/Injection 10/08/16 0000 Signed Impressions: Service Date/Time: Tuesday, October 11, 2016 13:41 - CONCLUSION: Uncomplicated aspiration as above. Minimal fluid on the right. No identifiable fluid on the left Clayton Max MD Lower Extremity Ultrasound 10/06/16 0000 Signed Impressions: Service Date/Time: September 17:29 - CONCLUSION: Normal examination. Josafat Meyer MD CT Angiography 10/06/16 0000 Signed Impressions: Service Date/Time: September 20:31 - CONCLUSION: Minimal right upper lobe infiltrate and basilar atelectasis. No evidence of pulmonary embolism.. Josafat Meyer MD Abdomen/Pelvis CT 10/06/16 0000 Signed Impressions: Service Date/Time: September 20:31 - CONCLUSION: No evidence of pelvic abscess. Josafat Meyer MD Upper Extremity Ultrasound 09/28/16 Signed Impressions: Service Date/Time: Wednesday, September 28, 2016 19:15 - CONCLUSION: 1. Occlusive superficial thrombosis in the left cephalic vein near the antecubital fossa. No deep venous thrombosis. Sumit Bourgeois MD Renal Ultrasound 08/28/16 Signed Impressions: Service Date/Time: Sunday, August 28, 2016 20:03 - CONCLUSION: Mild increased echotexture of both kidneys. Baldev Vu MD Lumbar Puncture Fluoroscopy 08/17/16 Signed Impressions: Service Date/Time: Wednesday, August 17, 2016 12:26 - CONCLUSION: Uncomplicated fluoroscopically guided lumbar puncture. Vishal Beckford Jr., MD Brain MRI 08/17/16 Signed Impressions: Service Date/Time: Wednesday, August 17, 2016 13:28 - CONCLUSION: Remote long-standing areas of abnormality in the brainstem and middle cerebellar peduncle consistent with remote infarcts or contusion. No acute intracranial abnormality. Chacho Bright MD Abdomen X-Ray 08/17/16 Signed Impressions: Service Date/Time: Wednesday, August 17, 2016 13:02 - CONCLUSION: No evidence of obstruction. No MRI incompatible foreign body is identified. Chacho Bright MD Head CT 08/16/16 Signed Impressions: Service Date/Time: Tuesday, August 16, 2016 09:55 - CONCLUSION: Chronic ischemic changes left frontal lobe possibly from evidence of previous ventriculostomy placement, unchanged. No acute intracranial abnormality. Gen Potter MD Modified Barium Swallow 08/15/16 Signed Impressions: Service Date/Time: Monday, August 15, 2016 00:00 - CONCLUSION: See report above and speech pathology report Chacho Bright MD Objective Remarks GENERAL: Well-developed cachectic and contracted male patient in NAD. Awake and alert, nonverbal. Nodding appropriately. SKIN: Warm and dry. No rash. HEENT: Normocephalic. Atraumatic. Pupils equal and round. No scleral icterus. No injection or drainage. No nasal bleeding or discharge. Mucous membranes pink and moist. NECK: Supple. Trachea midline. CARDIOVASCULAR: Regular rate and rhythm. S1, S2 noted. No murmur appreciated. RESPIRATORY: No accessory muscle use. Course and rhonchi throughout lung [place]. Breath sounds equal bilaterally. GASTROINTESTINAL: Abdomen soft, non-tender, nondistended. Normoactive bowel sounds x4. No guarding. PEG tube noted, no erythema or drainage from site, c/d/ i. MUSCULOSKELETAL: No obvious deformities. Extremities without clubbing, cyanosis , or edema. 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 (2) Hospital acquired PNA ICD Code: J18.9 - Pneumonia, unspecified organism Status: Resolved (3) Sepsis ICD Code: A41.9 - Sepsis, unspecified organism Status: Resolved (4) Encephalopathy ICD Code: G93.40 - Encephalopathy, unspecified Status: Resolved (5) GI bleed ICD Code: K92.2 - Gastrointestinal hemorrhage, unspecified Status: Resolved (6) HCAP (healthcare-associated pneumonia) ICD Code: J18.9 - Pneumonia, unspecified organism Status: Resolved (7) UTI (urinary tract infection) ICD Code: N39.0 - Urinary tract infection, site not specified Status: Resolved (8) Leucocytosis ICD Code: D72.829 - Elevated white blood cell count, unspecified Status: Resolved (9) Fever ICD Code: R50.9 - Fever, unspecified Status: Resolved (10) Effusion of hip joint ICD Code: M25.459 - Effusion, unspecified hip Status: Acute (11) 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 Patient was followed by neurology. Aphasic at baseline. Continue Imuran, prednisone EEG shows mild to moderate slowing at times of various depending on the epoch , there was no epileptic activity seen Continue PT/OT Palliative care still following the patient. Still indicating full code and full aggressive measures. 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 Dietary reconsulted and made recommendations. Patient was intolerant to bolus feeding tube feeding continued, TwoCal HN, goal rate 50ml/hr. Free Water Flushes and additional free water flush with Maury bid. Kowalski placed for urinary retention , change monthly. 04/26/17 Coccyx decubitus Ankle ulceration Wound care nurse is following the patient for management Patient with specialty bed Mood disorder, depression Psychiatry evaluated patient and made recommendations Prozac 40 mg daily Seroquel 25 mg at bedtime Diabetes Glucose continues to be well controlled Sepsis (fever, tachycardia, lactic acid) suspect secondary to UTI. Resolved. Patient did have febrile illness, leukocytosis which have resolved Urine culture does indicate Pseudomonas, enterococcus faecalis Status post vancomycin/cefepime/Levaquin IV Status post Cipro 500 mg twice daily for total antibiotic treatment of 14 days (end 05/10) DVT Prophylaxis: Lovenox, TEDs/SCDs. Records reviewed extensively. No change in current treatment plan. Discharge Planning Case management assisting. Problem Qualifiers (1) GI bleed: (2) UTI (urinary tract infection): (3) Effusion of hip joint: Dotty Pacheco May 23, 2017 09:29
[2017-05-23] MEDS: ENOXAPARIN SODIUM 40 MG/0.4 ML SYRINGE SQ SCH (10:20)
[2017-05-23] MEDS: JUVEN POWDER 1 PACK G-TUBE SCH ×2 (10:20→23:09)
[2017-05-23] MEDS: LACTOBACILLUS ACIDOPHILUS TAB PEG SCH ×2 (10:20→23:08)
[2017-05-23] MEDS: LACTIC ACID (AMMONIUM LACTATE) 12% LOTION 225 GM BTL TOPICAL SCH ×2 (10:20→23:09)
[2017-05-23] MEDS: predniSONE 20 MG TAB PEG SCH (10:20)
[2017-05-23] MEDS: FLUoxetine HCL LIQUID 20 MG/5 ML CUP PEG SCH (10:20)
[2017-05-23] MEDS: SENNOSIDES SYRUP 8.8 MG/5 ML CUP PEG SCH (10:21)
[2017-05-23] MEDS: LANSOPRAZOLE SOLUTAB 30 MG TAB PEG SCH ×2 (10:21→23:08)
[2017-05-23 20:00] VITALS: BP 115/84; PULSE 86; RESP 20; TEMP 97.6; O2SAT 98
[2017-05-23] MEDS: QUEtiapine FUMARATE 25 MG TAB PO SCH (23:08)
[2017-05-23] MEDS: HYOSCYAMINE SOLN 0.125 MG/ML 15 ML BTL PEG PRN (23:09)
[2017-05-24] MEDS: azaTHIOprine 50 MG TAB PEG SCH ×2 (05:48→17:03)
[2017-05-24 08:00] VITALS: BP 123/96; PULSE 94; RESP 16; TEMP 97.1; O2SAT 96
[2017-05-24] MEDS: FLUoxetine HCL LIQUID 20 MG/5 ML CUP PEG SCH (09:30)
[2017-05-24] MEDS: LACTOBACILLUS ACIDOPHILUS TAB PEG SCH ×2 (09:31→22:33)
[2017-05-24] MEDS: LANSOPRAZOLE SOLUTAB 30 MG TAB PEG SCH ×2 (09:31→22:34)
[2017-05-24] MEDS: predniSONE 20 MG TAB PEG SCH (09:31)
[2017-05-24] MEDS: ENOXAPARIN SODIUM 40 MG/0.4 ML SYRINGE SQ SCH (09:31)
[2017-05-24] MEDS: SENNOSIDES SYRUP 8.8 MG/5 ML CUP PEG SCH (09:31)
[2017-05-24] MEDS: JUVEN POWDER 1 PACK G-TUBE SCH ×2 (09:32→22:31)
[2017-05-24] MEDS: LACTIC ACID (AMMONIUM LACTATE) 12% LOTION 225 GM BTL TOPICAL SCH ×2 (09:32→22:32)
--- NOTE | 2017-05-24 14:03 | HHI.PR ---
Subjective Remarks Follow up Neuro-Bechets syndrome. Patient seen and examined, lying in bed sleeping comfortably. Opens eyes to verbal and noxious stimuli. No change in clinical condition. Patient nods no to any complaints. VSS. Afebrile. Objective Vitals Vital Signs Date Time Temp Pulse Resp B/P (MAP) Pulse Ox O2 Delivery O2 Flow Rate FiO2 05/24/17 08:00 97.1 94 16 123/96 (105) 96 05/23/17 20:00 97.6 86 20 115/84 (94) 98 I/O 05/23/17 05/23/17 05/23/17 05/24/17 05/24/17 05/24/17 07:00 15:00 23:00 07:00 15:00 23:00 Intake Total 1600 ml 1240 ml 0 ml Output Total 450 ml 250 ml 350 ml 675 ml Balance 1150 ml -250 ml 890 ml -675 ml Intake Oral 0 ml 0 ml Tube Feeding 1200 ml 600 ml Tube Irrigant 400 ml Other 400 ml 240 ml Output Urine Total 450 ml 250 ml 350 ml 675 ml # Bowel Movements 1 1 0 Imaging Last Impressions Chest X-Ray 04/26/17 0000 Signed Impressions: Service Date/Time: Wednesday, April 26, 2017 13:12 - CONCLUSION: 1. Poor inspiratory result. 2. Minimal perihilar atelectatic changes bilaterally. 3. Mild scoliosis of the thoracic spine. Tomi Joseph MD Hip Aspiration/Injection 10/08/16 0000 Signed Impressions: Service Date/Time: Tuesday, October 11, 2016 13:41 - CONCLUSION: Uncomplicated aspiration as above. Minimal fluid on the right. No identifiable fluid on the left Clayton Max MD Lower Extremity Ultrasound 10/06/16 0000 Signed Impressions: Service Date/Time: September 17:29 - CONCLUSION: Normal examination. Josafat Meyer MD CT Angiography 10/06/16 0000 Signed Impressions: Service Date/Time: September 20:31 - CONCLUSION: Minimal right upper lobe infiltrate and basilar atelectasis. No evidence of pulmonary embolism.. Josafat Meyer MD Abdomen/Pelvis CT 10/06/16 0000 Signed Impressions: Service Date/Time: September 20:31 - CONCLUSION: No evidence of pelvic abscess. Josafat Meyer MD Upper Extremity Ultrasound 09/28/16 Signed Impressions: Service Date/Time: Wednesday, September 28, 2016 19:15 - CONCLUSION: 1. Occlusive superficial thrombosis in the left cephalic vein near the antecubital fossa. No deep venous thrombosis. Sumit Bourgeois MD Renal Ultrasound 08/28/16 Signed Impressions: Service Date/Time: Sunday, August 28, 2016 20:03 - CONCLUSION: Mild increased echotexture of both kidneys. Baldev Vu MD Lumbar Puncture Fluoroscopy 08/17/16 Signed Impressions: Service Date/Time: Wednesday, August 17, 2016 12:26 - CONCLUSION: Uncomplicated fluoroscopically guided lumbar puncture. Vishal Beckford Jr., MD Brain MRI 08/17/16 Signed Impressions: Service Date/Time: Wednesday, August 17, 2016 13:28 - CONCLUSION: Remote long-standing areas of abnormality in the brainstem and middle cerebellar peduncle consistent with remote infarcts or contusion. No acute intracranial abnormality. Chacho Bright MD Abdomen X-Ray 08/17/16 Signed Impressions: Service Date/Time: Wednesday, August 17, 2016 13:02 - CONCLUSION: No evidence of obstruction. No MRI incompatible foreign body is identified. Chacho Bright MD Head CT 08/16/16 Signed Impressions: Service Date/Time: Tuesday, August 16, 2016 09:55 - CONCLUSION: Chronic ischemic changes left frontal lobe possibly from evidence of previous ventriculostomy placement, unchanged. No acute intracranial abnormality. Gen Potter MD Modified Barium Swallow 08/15/16 Signed Impressions: Service Date/Time: Monday, August 15, 2016 00:00 - CONCLUSION: See report above and speech pathology report Chacho Bright MD Objective Remarks GENERAL: Well-developed cachectic and contracted male patient in NAD. Awake and alert, nonverbal. Nodding appropriately. SKIN: Warm and dry. No rash. HEENT: Normocephalic. Atraumatic. Pupils equal and round. No scleral icterus. No injection or drainage. No nasal bleeding or discharge. Mucous membranes pink and moist. NECK: Supple. Trachea midline. CARDIOVASCULAR: Regular rate and rhythm. S1, S2 noted. No murmur appreciated. RESPIRATORY: No accessory muscle use. Course and rhonchi throughout lung [place]. Breath sounds equal bilaterally. GASTROINTESTINAL: Abdomen soft, non-tender, nondistended. Normoactive bowel sounds x4. No guarding. PEG tube noted, no erythema or drainage from site, c/d/ i. MUSCULOSKELETAL: No obvious deformities. Extremities without clubbing, cyanosis , or edema. 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 (2) Hospital acquired PNA ICD Code: J18.9 - Pneumonia, unspecified organism Status: Resolved (3) Sepsis ICD Code: A41.9 - Sepsis, unspecified organism Status: Resolved (4) Encephalopathy ICD Code: G93.40 - Encephalopathy, unspecified Status: Resolved (5) GI bleed ICD Code: K92.2 - Gastrointestinal hemorrhage, unspecified Status: Resolved (6) HCAP (healthcare-associated pneumonia) ICD Code: J18.9 - Pneumonia, unspecified organism Status: Resolved (7) UTI (urinary tract infection) ICD Code: N39.0 - Urinary tract infection, site not specified Status: Resolved (8) Leucocytosis ICD Code: D72.829 - Elevated white blood cell count, unspecified Status: Resolved (9) Fever ICD Code: R50.9 - Fever, unspecified Status: Resolved (10) Effusion of hip joint ICD Code: M25.459 - Effusion, unspecified hip Status: Acute (11) 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 Patient was followed by neurology. Aphasic at baseline. Continue Imuran, prednisone EEG shows mild to moderate slowing at times of various depending on the epoch , there was no epileptic activity seen Continue PT/OT Palliative care still following the patient. Still indicating full code and full aggressive measures. 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 Dietary reconsulted and made recommendations. Patient was intolerant to bolus feeding tube feeding continued, TwoCal HN, goal rate 50ml/hr. Free Water Flushes and additional free water flush with Maury bid. Kowalski placed for urinary retention , change monthly. 04/26/17 Coccyx decubitus Ankle ulceration Wound care nurse is following the patient for management Patient with specialty bed Mood disorder, depression Psychiatry evaluated patient and made recommendations Prozac 40 mg daily Seroquel 25 mg at bedtime Diabetes Glucose continues to be well controlled Sepsis (fever, tachycardia, lactic acid) suspect secondary to UTI. Resolved. Patient did have febrile illness, leukocytosis which have resolved Urine culture does indicate Pseudomonas, enterococcus faecalis Status post vancomycin/cefepime/Levaquin IV Status post Cipro 500 mg twice daily for total antibiotic treatment of 14 days (end 05/10) DVT Prophylaxis: Lovenox, TEDs/SCDs. Records reviewed extensively. No change in current treatment plan. Discharge Planning Case management assisting. Problem Qualifiers (1) GI bleed: (2) UTI (urinary tract infection): (3) Effusion of hip joint: Dotty Pacheco May 24, 2017 14:03
[2017-05-24 20:00] VITALS: BP 125/61; PULSE 80; RESP 20; TEMP 98; O2SAT 95
[2017-05-24] MEDS: QUEtiapine FUMARATE 25 MG TAB PO SCH (22:33)
[2017-05-25] MEDS: azaTHIOprine 50 MG TAB PEG SCH ×2 (06:57→17:38)
[2017-05-25 08:00] VITALS: BP 103/78; PULSE 94; RESP 20; TEMP 98.8; O2SAT 97
[2017-05-25] MEDS: SENNOSIDES SYRUP 8.8 MG/5 ML CUP PEG SCH (08:47)
[2017-05-25] MEDS: FLUoxetine HCL LIQUID 20 MG/5 ML CUP PEG SCH (08:47)
[2017-05-25] MEDS: LACTOBACILLUS ACIDOPHILUS TAB PEG SCH ×2 (08:48→22:14)
[2017-05-25] MEDS: predniSONE 20 MG TAB PEG SCH (08:48)
[2017-05-25] MEDS: JUVEN POWDER 1 PACK G-TUBE SCH ×2 (08:49→22:15)
[2017-05-25] MEDS: ENOXAPARIN SODIUM 40 MG/0.4 ML SYRINGE SQ SCH (08:49)
[2017-05-25] MEDS: LACTIC ACID (AMMONIUM LACTATE) 12% LOTION 225 GM BTL TOPICAL SCH ×2 (08:50→22:15)
[2017-05-25] MEDS: LANSOPRAZOLE SOLUTAB 30 MG TAB PEG SCH ×2 (08:51→22:14)
--- NOTE | 2017-05-25 16:45 | HHI.PR ---
Subjective Remarks Follow up Neuro Bechet's syndrome. Patient seen and examined, lying in bed awake and alert. Nodding. Tracking with eyes. Following appropriately. No reports of any change overnight. Afebrile. VSS. Denies any pain. Objective Vitals Vital Signs Date Time Temp Pulse Resp B/P (MAP) Pulse Ox O2 Delivery O2 Flow Rate FiO2 05/25/17 08:00 98.8 94 20 103/78 (86) 97 05/24/17 20:00 98.0 80 20 125/61 (82) 95 I/O 05/24/17 05/24/17 05/24/17 05/25/17 05/25/17 05/25/17 07:00 15:00 23:00 07:00 15:00 23:00 Intake Total 0 ml 1050 ml Output Total 675 ml 250 ml Balance -675 ml -250 ml 1050 ml Intake Oral 0 ml Tube Feeding 600 ml Tube Irrigant 450 ml Output Urine Total 675 ml 250 ml # Bowel Movements 0 1 Imaging Last Impressions Chest X-Ray 04/26/17 0000 Signed Impressions: Service Date/Time: Wednesday, April 26, 2017 13:12 - CONCLUSION: 1. Poor inspiratory result. 2. Minimal perihilar atelectatic changes bilaterally. 3. Mild scoliosis of the thoracic spine. Tomi Joseph MD Hip Aspiration/Injection 10/08/16 0000 Signed Impressions: Service Date/Time: Tuesday, October 11, 2016 13:41 - CONCLUSION: Uncomplicated aspiration as above. Minimal fluid on the right. No identifiable fluid on the left Clayton Max MD Lower Extremity Ultrasound 10/06/16 0000 Signed Impressions: Service Date/Time: September 17:29 - CONCLUSION: Normal examination. Josafat Meyer MD CT Angiography 10/06/16 0000 Signed Impressions: Service Date/Time: September 20:31 - CONCLUSION: Minimal right upper lobe infiltrate and basilar atelectasis. No evidence of pulmonary embolism.. Josafat Meyer MD Abdomen/Pelvis CT 10/06/16 0000 Signed Impressions: Service Date/Time: September 20:31 - CONCLUSION: No evidence of pelvic abscess. Josafat Meyer MD Upper Extremity Ultrasound 4/5/17 0000 Signed Impressions: Service Date/Time: Wednesday, September 28, 2016 19:15 - CONCLUSION: 1. Occlusive superficial thrombosis in the left cephalic vein near the antecubital fossa. No deep venous thrombosis. Sumit Bourgeois MD Renal Ultrasound 08/28/16 Signed Impressions: Service Date/Time: Sunday, August 28, 2016 20:03 - CONCLUSION: Mild increased echotexture of both kidneys. Baldev Vu MD Lumbar Puncture Fluoroscopy 08/17/16 Signed Impressions: Service Date/Time: Wednesday, August 17, 2016 12:26 - CONCLUSION: Uncomplicated fluoroscopically guided lumbar puncture. Vishal Beckford Jr., MD Brain MRI 08/17/16 Signed Impressions: Service Date/Time: Wednesday, August 17, 2016 13:28 - CONCLUSION: Remote long-standing areas of abnormality in the brainstem and middle cerebellar peduncle consistent with remote infarcts or contusion. No acute intracranial abnormality. Chacho Bright MD Abdomen X-Ray 08/17/16 Signed Impressions: Service Date/Time: Wednesday, August 17, 2016 13:02 - CONCLUSION: No evidence of obstruction. No MRI incompatible foreign body is identified. Chacho Bright MD Head CT 08/16/16 Signed Impressions: Service Date/Time: Tuesday, August 16, 2016 09:55 - CONCLUSION: Chronic ischemic changes left frontal lobe possibly from evidence of previous ventriculostomy placement, unchanged. No acute intracranial abnormality. Gen Potter MD Modified Barium Swallow 08/15/16 Signed Impressions: Service Date/Time: Monday, August 15, 2016 00:00 - CONCLUSION: See report above and speech pathology report Chacho Bright MD Objective Remarks GENERAL: Well-developed cachectic and contracted male patient in NAD. Awake and alert, nonverbal. Nodding appropriately. SKIN: Warm and dry. No rash. HEENT: Normocephalic. Atraumatic. Pupils equal and round. No scleral icterus. No injection or drainage. No nasal bleeding or discharge. Mucous membranes pink and moist. NECK: Supple. Trachea midline. CARDIOVASCULAR: Regular rate and rhythm. S1, S2 noted. No murmur appreciated. RESPIRATORY: No accessory muscle use. Course and rhonchi throughout lung [place]. Breath sounds equal bilaterally. GASTROINTESTINAL: Abdomen soft, non-tender, nondistended. Normoactive bowel sounds x4. No guarding. PEG tube noted, no erythema or drainage from site, c/d/ i. MUSCULOSKELETAL: No obvious deformities. Extremities without clubbing, cyanosis , or edema. 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 (2) Hospital acquired PNA ICD Code: J18.9 - Pneumonia, unspecified organism Status: Resolved (3) Sepsis ICD Code: A41.9 - Sepsis, unspecified organism Status: Resolved (4) Encephalopathy ICD Code: G93.40 - Encephalopathy, unspecified Status: Resolved (5) GI bleed ICD Code: K92.2 - Gastrointestinal hemorrhage, unspecified Status: Resolved (6) HCAP (healthcare-associated pneumonia) ICD Code: J18.9 - Pneumonia, unspecified organism Status: Resolved (7) UTI (urinary tract infection) ICD Code: N39.0 - Urinary tract infection, site not specified Status: Resolved (8) Leucocytosis ICD Code: D72.829 - Elevated white blood cell count, unspecified Status: Resolved (9) Fever ICD Code: R50.9 - Fever, unspecified Status: Resolved (10) Effusion of hip joint ICD Code: M25.459 - Effusion, unspecified hip Status: Acute (11) 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 Patient was followed by neurology. Aphasic at baseline. Continue Imuran, prednisone EEG shows mild to moderate slowing at times of various depending on the epoch , there was no epileptic activity seen Continue PT/OT Palliative care still following the patient. Still indicating full code and full aggressive measures. 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 Dietary reconsulted and made recommendations. Patient was intolerant to bolus feeding tube feeding continued, TwoCal HN, goal rate 50ml/hr. Free Water Flushes and additional free water flush with Maury bid. Kowalski placed for urinary retention , change monthly. 04/26/17 will change tomorrow (05/26) Coccyx decubitus Ankle ulceration Wound care nurse is following the patient for management Patient with specialty bed Mood disorder, depression Psychiatry evaluated patient and made recommendations Prozac 40 mg daily Seroquel 25 mg at bedtime Diabetes Glucose continues to be well controlled Sepsis (fever, tachycardia, lactic acid) suspect secondary to UTI. Resolved. Patient did have febrile illness, leukocytosis which have resolved Urine culture does indicate Pseudomonas, enterococcus faecalis Status post vancomycin/cefepime/Levaquin IV Status post Cipro 500 mg twice daily for total antibiotic treatment of 14 days (end 05/10) DVT Prophylaxis: Lovenox, TEDs/SCDs. Records reviewed extensively. No change in current treatment plan. Discharge Planning Case management assisting. Problem Qualifiers (1) GI bleed: (2) UTI (urinary tract infection): (3) Effusion of hip joint: Dotty Pacheco May 25, 2017 16:45
[2017-05-25 20:00] VITALS: BP 123/94; PULSE 82; RESP 17; TEMP 95.6; O2SAT 96
[2017-05-25] MEDS: QUEtiapine FUMARATE 25 MG TAB PO SCH (22:15)
[2017-05-26] MEDS: azaTHIOprine 50 MG TAB PEG SCH ×2 (05:22→17:49)
[2017-05-26 08:30] VITALS: BP 107/72; PULSE 88; RESP 16; TEMP 96.9; O2SAT 96
[2017-05-26] MEDS: JUVEN POWDER 1 PACK G-TUBE SCH ×2 (08:57→21:41)
[2017-05-26] MEDS: LANSOPRAZOLE SOLUTAB 30 MG TAB PEG SCH ×2 (08:58→21:41)
[2017-05-26] MEDS: SENNOSIDES SYRUP 8.8 MG/5 ML CUP PEG SCH (08:58)
[2017-05-26] MEDS: FLUoxetine HCL LIQUID 20 MG/5 ML CUP PEG SCH (08:58)
[2017-05-26] MEDS: LACTOBACILLUS ACIDOPHILUS TAB PEG SCH ×2 (08:58→21:41)
[2017-05-26] MEDS: predniSONE 20 MG TAB PEG SCH (08:59)
[2017-05-26] MEDS: LACTIC ACID (AMMONIUM LACTATE) 12% LOTION 225 GM BTL TOPICAL SCH ×2 (09:00→21:41)
[2017-05-26] MEDS: ENOXAPARIN SODIUM 40 MG/0.4 ML SYRINGE SQ SCH (09:00)
--- NOTE | 2017-05-26 17:31 | HHI.PR ---
Subjective Remarks Follow up Neuro Bechet's syndrome. Patient seen and examined lying in bed sleeping. Awakens to voice. Denies any complaints, denies any pain. No acute events overnight. VSS. Afebrile. Objective Vitals Vital Signs Date Time Temp Pulse Resp B/P (MAP) Pulse Ox O2 Delivery O2 Flow Rate FiO2 05/26/17 08:30 96.9 88 16 107/72 (84) 96 05/25/17 20:00 95.6 82 17 123/94 (104) 96 I/O 05/25/17 05/25/17 05/25/17 05/26/17 05/26/17 05/26/17 07:00 15:00 23:00 07:00 15:00 23:00 Intake Total 800 ml Output Total 450 ml 350 ml Balance -450 ml 450 ml Tube Feeding 600 ml Other 200 ml Output Urine Total 450 ml 350 ml # Bowel Movements 1 1 Imaging Last Impressions Chest X-Ray 04/26/17 0000 Signed Impressions: Service Date/Time: Wednesday, April 26, 2017 13:12 - CONCLUSION: 1. Poor inspiratory result. 2. Minimal perihilar atelectatic changes bilaterally. 3. Mild scoliosis of the thoracic spine. Tomi Joseph MD Hip Aspiration/Injection 10/08/16 0000 Signed Impressions: Service Date/Time: Tuesday, October 11, 2016 13:41 - CONCLUSION: Uncomplicated aspiration as above. Minimal fluid on the right. No identifiable fluid on the left Clayton Max MD Lower Extremity Ultrasound 10/06/16 0000 Signed Impressions: Service Date/Time: September 17:29 - CONCLUSION: Normal examination. Josafat Meyer MD CT Angiography 10/06/16 0000 Signed Impressions: Service Date/Time: September 20:31 - CONCLUSION: Minimal right upper lobe infiltrate and basilar atelectasis. No evidence of pulmonary embolism.. Josafat Meyer MD Abdomen/Pelvis CT 10/06/16 0000 Signed Impressions: Service Date/Time: September 20:31 - CONCLUSION: No evidence of pelvic abscess. Josafat Meyer MD Upper Extremity Ultrasound 09/28/16 0000 Signed Impressions: Service Date/Time: Wednesday, September 28, 2016 19:15 - CONCLUSION: 1. Occlusive superficial thrombosis in the left cephalic vein near the antecubital fossa. No deep venous thrombosis. Sumit Bourgeois MD Renal Ultrasound 08/28/16 Signed Impressions: Service Date/Time: Sunday, August 28, 2016 20:03 - CONCLUSION: Mild increased echotexture of both kidneys. Baldev Vu MD Lumbar Puncture Fluoroscopy 08/17/16 0000 Signed Impressions: Service Date/Time: Wednesday, August 17, 2016 12:26 - CONCLUSION: Uncomplicated fluoroscopically guided lumbar puncture. Vishal Beckford Jr., MD Brain MRI 08/17/16 0000 Signed Impressions: Service Date/Time: Wednesday, August 17, 2016 13:28 - CONCLUSION: Remote long-standing areas of abnormality in the brainstem and middle cerebellar peduncle consistent with remote infarcts or contusion. No acute intracranial abnormality. Chacho Bright MD Abdomen X-Ray 08/17/16 Signed Impressions: Service Date/Time: Wednesday, August 17, 2016 13:02 - CONCLUSION: No evidence of obstruction. No MRI incompatible foreign body is identified. Chacho Bright MD Head CT 08/16/16 Signed Impressions: Service Date/Time: Tuesday, August 16, 2016 09:55 - CONCLUSION: Chronic ischemic changes left frontal lobe possibly from evidence of previous ventriculostomy placement, unchanged. No acute intracranial abnormality. Gen Potter MD Modified Barium Swallow 08/15/16 0000 Signed Impressions: Service Date/Time: Monday, August 15, 2016 00:00 - CONCLUSION: See report above and speech pathology report Chacho Bright MD Objective Remarks GENERAL: Well-developed cachectic and contracted male patient in NAD. Awake and alert, nonverbal. Nodding appropriately. SKIN: Warm and dry. No rash. HEENT: Normocephalic. Atraumatic. Pupils equal and round. No scleral icterus. No injection or drainage. No nasal bleeding or discharge. Mucous membranes pink and moist. NECK: Supple. Trachea midline. CARDIOVASCULAR: Regular rate and rhythm. S1, S2 noted. No murmur appreciated. RESPIRATORY: No accessory muscle use. Course and rhonchi throughout lung [place]. Breath sounds equal bilaterally. GASTROINTESTINAL: Abdomen soft, non-tender, nondistended. Normoactive bowel sounds x4. No guarding. PEG tube noted, no erythema or drainage from site, c/d/ i. MUSCULOSKELETAL: No obvious deformities. Extremities without clubbing, cyanosis , or edema. Procedures 07/19/16 EGD with PEG tube placement 09/27/16 colonoscopy Urinary Catheter: Yes Assessment to: Continue (change today) Date of Insertion: Apr 26, 2017 A/P Problem List: (1) Neurologic type Behcet's syndrome ICD Code: M35.2 - Behcet's disease Status: Chronic (2) Hospital acquired PNA ICD Code: J18.9 - Pneumonia, unspecified organism Status: Resolved (3) Sepsis ICD Code: A41.9 - Sepsis, unspecified organism Status: Resolved (4) Encephalopathy ICD Code: G93.40 - Encephalopathy, unspecified Status: Resolved (5) GI bleed ICD Code: K92.2 - Gastrointestinal hemorrhage, unspecified Status: Resolved (6) HCAP (healthcare-associated pneumonia) ICD Code: J18.9 - Pneumonia, unspecified organism Status: Resolved (7) UTI (urinary tract infection) ICD Code: N39.0 - Urinary tract infection, site not specified Status: Resolved (8) Leucocytosis ICD Code: D72.829 - Elevated white blood cell count, unspecified Status: Resolved (9) Fever ICD Code: R50.9 - Fever, unspecified Status: Resolved (10) Effusion of hip joint ICD Code: M25.459 - Effusion, unspecified hip Status: Acute (11) 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 Patient was followed by neurology. Aphasic at baseline. Continue Imuran, prednisone EEG shows mild to moderate slowing at times of various depending on the epoch , there was no epileptic activity seen Continue PT/OT Palliative care still following the patient. Still indicating full code and full aggressive measures. 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 Dietary reconsulted and made recommendations. Patient was intolerant to bolus feeding tube feeding continued, TwoCal HN, goal rate 50ml/hr. Free Water Flushes and additional free water flush with Maury bid. Kowalski placed for urinary retention , change monthly. 04/26/17 will change today 05/26. Coccyx decubitus Ankle ulceration Wound care nurse is following the patient for management Patient with specialty bed Mood disorder, depression Psychiatry evaluated patient and made recommendations Prozac 40 mg daily Seroquel 25 mg at bedtime Diabetes Glucose continues to be well controlled Sepsis (fever, tachycardia, lactic acid) suspect secondary to UTI. Resolved. Patient did have febrile illness, leukocytosis which have resolved Urine culture does indicate Pseudomonas, enterococcus faecalis Status post vancomycin/cefepime/Levaquin IV Status post Cipro 500 mg twice daily for total antibiotic treatment of 14 days (end 05/10) DVT Prophylaxis: Lovenox, TEDs/SCDs. Records reviewed extensively. No change in current treatment plan. Discharge Planning Case management assisting. Problem Qualifiers (1) GI bleed: (2) UTI (urinary tract infection): (3) Effusion of hip joint: Dotty Pacheco May 26, 2017 17:31
[2017-05-26 20:00] VITALS: BP 135/95; PULSE 90; RESP 18; TEMP 97.5; O2SAT 95
[2017-05-26] MEDS: QUEtiapine FUMARATE 25 MG TAB PO SCH (21:41)
[2017-05-27] MEDS: azaTHIOprine 50 MG TAB PEG SCH ×2 (06:00→17:14)
[2017-05-27 08:00] VITALS: BP 108/80; PULSE 94; RESP 14; TEMP 96.7; O2SAT 96
[2017-05-27] MEDS: LANSOPRAZOLE SOLUTAB 30 MG TAB PEG SCH ×2 (08:44→20:55)
[2017-05-27] MEDS: LACTIC ACID (AMMONIUM LACTATE) 12% LOTION 225 GM BTL TOPICAL SCH ×2 (08:44→20:54)
[2017-05-27] MEDS: JUVEN POWDER 1 PACK G-TUBE SCH ×2 (08:44→20:54)
[2017-05-27] MEDS: FLUoxetine HCL LIQUID 20 MG/5 ML CUP PEG SCH (08:44)
[2017-05-27] MEDS: SENNOSIDES SYRUP 8.8 MG/5 ML CUP PEG SCH (08:44)
[2017-05-27] MEDS: LACTOBACILLUS ACIDOPHILUS TAB PEG SCH ×2 (08:45→20:54)
[2017-05-27] MEDS: predniSONE 20 MG TAB PEG SCH (08:45)
[2017-05-27] MEDS: ENOXAPARIN SODIUM 40 MG/0.4 ML SYRINGE SQ SCH (08:46)
--- NOTE | 2017-05-27 17:06 | HHI.PR ---
Subjective Remarks Follow up Neuro Bechet's syndrome. Patient seen and examined lying in bed sleeping, no changes. No reports of events overnight. Tolerating TF. VSS. Afebrile. Objective Vitals Vital Signs Date Time Temp Pulse Resp B/P (MAP) Pulse Ox O2 Delivery O2 Flow Rate FiO2 05/27/17 08:00 96.7 94 14 108/80 (89) 96 05/26/17 20:00 97.5 90 18 135/95 (108) 95 I/O 05/26/17 05/26/17 05/26/17 05/27/17 05/27/17 05/27/17 07:00 15:00 23:00 07:00 15:00 23:00 Intake Total 800 ml Output Total 350 ml 600 ml Balance 450 ml -600 ml Tube Feeding 600 ml Other 200 ml Output Urine Total 350 ml 600 ml # Bowel Movements 1 1 Imaging Last Impressions Chest X-Ray 04/26/17 0000 Signed Impressions: Service Date/Time: Wednesday, April 26, 2017 13:12 - CONCLUSION: 1. Poor inspiratory result. 2. Minimal perihilar atelectatic changes bilaterally. 3. Mild scoliosis of the thoracic spine. Tomi Joseph MD Hip Aspiration/Injection 10/08/16 0000 Signed Impressions: Service Date/Time: Tuesday, October 11, 2016 13:41 - CONCLUSION: Uncomplicated aspiration as above. Minimal fluid on the right. No identifiable fluid on the left Clayton Max MD Lower Extremity Ultrasound 10/06/16 0000 Signed Impressions: Service Date/Time: September 17:29 - CONCLUSION: Normal examination. Josafat Meyer MD CT Angiography 10/06/16 0000 Signed Impressions: Service Date/Time: September 20:31 - CONCLUSION: Minimal right upper lobe infiltrate and basilar atelectasis. No evidence of pulmonary embolism.. Josafat Meyer MD Abdomen/Pelvis CT 10/06/16 0000 Signed Impressions: Service Date/Time: September 20:31 - CONCLUSION: No evidence of pelvic abscess. Josafat Meyer MD Upper Extremity Ultrasound 09/28/16 0000 Signed Impressions: Service Date/Time: Wednesday, September 28, 2016 19:15 - CONCLUSION: 1. Occlusive superficial thrombosis in the left cephalic vein near the antecubital fossa. No deep venous thrombosis. Sumit Bourgeois MD Renal Ultrasound 08/28/16 Signed Impressions: Service Date/Time: Sunday, August 28, 2016 20:03 - CONCLUSION: Mild increased echotexture of both kidneys. Baldev Vu MD Lumbar Puncture Fluoroscopy 08/17/16 0000 Signed Impressions: Service Date/Time: Wednesday, August 17, 2016 12:26 - CONCLUSION: Uncomplicated fluoroscopically guided lumbar puncture. Vishal Beckford Jr., MD Brain MRI 08/17/16 Signed Impressions: Service Date/Time: Wednesday, August 17, 2016 13:28 - CONCLUSION: Remote long-standing areas of abnormality in the brainstem and middle cerebellar peduncle consistent with remote infarcts or contusion. No acute intracranial abnormality. Chacho Bright MD Abdomen X-Ray 08/17/16 Signed Impressions: Service Date/Time: Wednesday, August 17, 2016 13:02 - CONCLUSION: No evidence of obstruction. No MRI incompatible foreign body is identified. Chacho Bright MD Head CT 08/16/16 Signed Impressions: Service Date/Time: Tuesday, August 16, 2016 09:55 - CONCLUSION: Chronic ischemic changes left frontal lobe possibly from evidence of previous ventriculostomy placement, unchanged. No acute intracranial abnormality. Gen Potter MD Modified Barium Swallow 08/15/16 0000 Signed Impressions: Service Date/Time: Monday, August 15, 2016 00:00 - CONCLUSION: See report above and speech pathology report Chacho Bright MD Objective Remarks GENERAL: Well-developed cachectic and contracted male patient in NAD. Awake and alert, nonverbal. Nodding appropriately. SKIN: Warm and dry. No rash. HEENT: Normocephalic. Atraumatic. Pupils equal and round. No scleral icterus. No injection or drainage. No nasal bleeding or discharge. Mucous membranes pink and moist. NECK: Supple. Trachea midline. CARDIOVASCULAR: Regular rate and rhythm. S1, S2 noted. No murmur appreciated. RESPIRATORY: No accessory muscle use. Course and rhonchi throughout lung [place]son. Breath sounds equal bilaterally. GASTROINTESTINAL: Abdomen soft, non-tender, nondistended. Normoactive bowel sounds x4. No guarding. PEG tube noted, no erythema or drainage from site, c/d/ i. MUSCULOSKELETAL: No obvious deformities. Extremities without clubbing, cyanosis , or edema. 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 (2) Hospital acquired PNA ICD Code: J18.9 - Pneumonia, unspecified organism Status: Resolved (3) Sepsis ICD Code: A41.9 - Sepsis, unspecified organism Status: Resolved (4) Encephalopathy ICD Code: G93.40 - Encephalopathy, unspecified Status: Resolved (5) GI bleed ICD Code: K92.2 - Gastrointestinal hemorrhage, unspecified Status: Resolved (6) HCAP (healthcare-associated pneumonia) ICD Code: J18.9 - Pneumonia, unspecified organism Status: Resolved (7) UTI (urinary tract infection) ICD Code: N39.0 - Urinary tract infection, site not specified Status: Resolved (8) Leucocytosis ICD Code: D72.829 - Elevated white blood cell count, unspecified Status: Resolved (9) Fever ICD Code: R50.9 - Fever, unspecified Status: Resolved (10) Effusion of hip joint ICD Code: M25.459 - Effusion, unspecified hip Status: Acute (11) 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 Patient was followed by neurology. Aphasic at baseline. Continue Imuran, prednisone EEG shows mild to moderate slowing at times of various depending on the epoch , there was no epileptic activity seen Continue PT/OT Palliative care still following the patient. Still indicating full code and full aggressive measures. 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 Dietary reconsulted and made recommendations. Patient was intolerant to bolus feeding tube feeding continued, TwoCal HN, goal rate 50ml/hr. Free Water Flushes and additional free water flush with Maury bid. Kowalski placed for urinary retention , change monthly. 05/26/17 Coccyx decubitus Ankle ulceration Wound care nurse is following the patient for management Patient with specialty bed Mood disorder, depression Psychiatry evaluated patient and made recommendations Prozac 40 mg daily Seroquel 25 mg at bedtime Diabetes Glucose continues to be well controlled Sepsis (fever, tachycardia, lactic acid) suspect secondary to UTI. Resolved. Patient did have febrile illness, leukocytosis which have resolved Urine culture does indicate Pseudomonas, enterococcus faecalis Status post vancomycin/cefepime/Levaquin IV Status post Cipro 500 mg twice daily for total antibiotic treatment of 14 days (end 05/10) DVT Prophylaxis: Lovenox, TEDs/SCDs. Records reviewed extensively. No change in current treatment plan. Discharge Planning Case management assisting. Problem Qualifiers (1) GI bleed: (2) UTI (urinary tract infection): (3) Effusion of hip joint: Dotty Pacheco May 27, 2017 17:06
[2017-05-27 20:00] VITALS: BP 100/75; PULSE 50; RESP 20; TEMP 96.6; O2SAT 96
[2017-05-27] MEDS: QUEtiapine FUMARATE 25 MG TAB PO SCH (20:55)
[2017-05-28] VITALS: BP 106/77; PULSE 87; RESP 20; TEMP 98; O2SAT 98
[2017-05-28 04:00] VITALS: BP 98/80; PULSE 101; RESP 20; TEMP 99.2; O2SAT 97
[2017-05-28] MEDS: azaTHIOprine 50 MG TAB PEG SCH ×2 (05:45→18:00)
[2017-05-28 08:00] VITALS: BP 107/86; PULSE 94; RESP 16; TEMP 97.4; O2SAT 96
[2017-05-28] MEDS: JUVEN POWDER 1 PACK G-TUBE SCH ×2 (09:00→20:43)
[2017-05-28] MEDS: FLUoxetine HCL LIQUID 20 MG/5 ML CUP PEG SCH (09:39)
[2017-05-28] MEDS: LANSOPRAZOLE SOLUTAB 30 MG TAB PEG SCH ×2 (09:40→20:43)
[2017-05-28] MEDS: ENOXAPARIN SODIUM 40 MG/0.4 ML SYRINGE SQ SCH (09:40)
[2017-05-28] MEDS: LACTOBACILLUS ACIDOPHILUS TAB PEG SCH ×2 (09:40→20:43)
[2017-05-28] MEDS: predniSONE 20 MG TAB PEG SCH (09:40)
[2017-05-28] MEDS: SENNOSIDES SYRUP 8.8 MG/5 ML CUP PEG SCH (09:40)
[2017-05-28] MEDS: LACTIC ACID (AMMONIUM LACTATE) 12% LOTION 225 GM BTL TOPICAL SCH ×2 (09:41→20:43)
--- NOTE | 2017-05-28 11:09 | HHI.PR ---
Subjective Remarks Follow up Neuro Bechet's syndrome. Patient seen and examined, awake and alert. Nodding yes and no to questions. Denies any pain or complaints. Denies any chest pain, shortness of breath, ab pain, n/v/d. No reports of any acute events. VSS. Afebrile. Objective Vitals Vital Signs Date Time Temp Pulse Resp B/P (MAP) Pulse Ox O2 Delivery O2 Flow Rate FiO2 05/28/17 08:00 97.4 94 16 107/86 (93) 96 05/28/17 04:00 99.2 101 20 98/80 (86) 97 05/28/17 00:00 98.0 87 20 106/77 (87) 98 05/27/17 20:00 96.6 50 20 100/75 (83) 96 I/O 05/27/17 05/27/17 05/27/17 05/28/17 05/28/17 05/28/17 07:00 15:00 23:00 07:00 15:00 23:00 Intake Total 0 ml Output Total 600 ml 550 ml 300 ml Balance -600 ml -550 ml -300 ml Intake Oral 0 ml Output Urine Total 600 ml 550 ml 300 ml # Bowel Movements 1 0 0 Imaging Last Impressions Chest X-Ray 04/26/17 0000 Signed Impressions: Service Date/Time: Wednesday, April 26, 2017 13:12 - CONCLUSION: 1. Poor inspiratory result. 2. Minimal perihilar atelectatic changes bilaterally. 3. Mild scoliosis of the thoracic spine. Tomi Joseph MD Hip Aspiration/Injection 10/08/16 0000 Signed Impressions: Service Date/Time: Tuesday, October 11, 2016 13:41 - CONCLUSION: Uncomplicated aspiration as above. Minimal fluid on the right. No identifiable fluid on the left Clayton Max MD Lower Extremity Ultrasound 10/06/16 0000 Signed Impressions: Service Date/Time: September 17:29 - CONCLUSION: Normal examination. Josafat Meyer MD CT Angiography 10/06/16 0000 Signed Impressions: Service Date/Time: September 20:31 - CONCLUSION: Minimal right upper lobe infiltrate and basilar atelectasis. No evidence of pulmonary embolism.. Josafat Meyer MD Abdomen/Pelvis CT 10/06/16 Signed Impressions: Service Date/Time: September 20:31 - CONCLUSION: No evidence of pelvic abscess. Josafat Meyer MD Upper Extremity Ultrasound 09/28/16 Signed Impressions: Service Date/Time: Wednesday, September 28, 2016 19:15 - CONCLUSION: 1. Occlusive superficial thrombosis in the left cephalic vein near the antecubital fossa. No deep venous thrombosis. Sumit Bourgeois MD Renal Ultrasound 08/28/16 Signed Impressions: Service Date/Time: Sunday, August 28, 2016 20:03 - CONCLUSION: Mild increased echotexture of both kidneys. Baldev Vu MD Lumbar Puncture Fluoroscopy 08/17/16 Signed Impressions: Service Date/Time: Wednesday, August 17, 2016 12:26 - CONCLUSION: Uncomplicated fluoroscopically guided lumbar puncture. Vishal Beckford Jr., MD Brain MRI 08/17/16 Signed Impressions: Service Date/Time: Wednesday, August 17, 2016 13:28 - CONCLUSION: Remote long-standing areas of abnormality in the brainstem and middle cerebellar peduncle consistent with remote infarcts or contusion. No acute intracranial abnormality. Chacho Bright MD Abdomen X-Ray 08/17/16 Signed Impressions: Service Date/Time: Wednesday, August 17, 2016 13:02 - CONCLUSION: No evidence of obstruction. No MRI incompatible foreign body is identified. Chacho Bright MD Head CT 08/16/16 Signed Impressions: Service Date/Time: Tuesday, August 16, 2016 09:55 - CONCLUSION: Chronic ischemic changes left frontal lobe possibly from evidence of previous ventriculostomy placement, unchanged. No acute intracranial abnormality. Gen Potter MD Modified Barium Swallow 08/15/16 Signed Impressions: Service Date/Time: Monday, August 15, 2016 00:00 - CONCLUSION: See report above and speech pathology report Chacho Bright MD Objective Remarks GENERAL: Well-developed cachectic and contracted male patient in NAD. Awake and alert, nonverbal. Nodding appropriately. SKIN: Warm and dry. No rash. HEENT: Normocephalic. Atraumatic. Pupils equal and round. No scleral icterus. No injection or drainage. No nasal bleeding or discharge. Mucous membranes pink and moist. NECK: Supple. Trachea midline. CARDIOVASCULAR: Regular rate and rhythm. S1, S2 noted. No murmur appreciated. RESPIRATORY: No accessory muscle use. Course and rhonchi throughout lung [place]. Breath sounds equal bilaterally. GASTROINTESTINAL: Abdomen soft, non-tender, nondistended. Normoactive bowel sounds x4. No guarding. PEG tube noted, no erythema or drainage from site, c/d/ i. MUSCULOSKELETAL: No obvious deformities. Extremities without clubbing, cyanosis , or edema. 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 (2) Hospital acquired PNA ICD Code: J18.9 - Pneumonia, unspecified organism Status: Resolved (3) Sepsis ICD Code: A41.9 - Sepsis, unspecified organism Status: Resolved (4) Encephalopathy ICD Code: G93.40 - Encephalopathy, unspecified Status: Resolved (5) GI bleed ICD Code: K92.2 - Gastrointestinal hemorrhage, unspecified Status: Resolved (6) HCAP (healthcare-associated pneumonia) ICD Code: J18.9 - Pneumonia, unspecified organism Status: Resolved (7) UTI (urinary tract infection) ICD Code: N39.0 - Urinary tract infection, site not specified Status: Resolved (8) Leucocytosis ICD Code: D72.829 - Elevated white blood cell count, unspecified Status: Resolved (9) Fever ICD Code: R50.9 - Fever, unspecified Status: Resolved (10) Effusion of hip joint ICD Code: M25.459 - Effusion, unspecified hip Status: Acute (11) 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 Patient was followed by neurology. Aphasic at baseline. Continue Imuran, prednisone EEG shows mild to moderate slowing at times of various depending on the epoch , there was no epileptic activity seen Continue PT/OT Palliative care still following the patient. Still indicating full code and full aggressive measures. 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 Dietary reconsulted and made recommendations. Patient was intolerant to bolus feeding tube feeding continued, TwoCal HN, goal rate 50ml/hr. Free Water Flushes and additional free water flush with Maury bid. Kowalski placed for urinary retention , change monthly. Last changed 05/26/17. Coccyx decubitus Ankle ulceration Wound care nurse is following the patient for management Patient with specialty bed Mood disorder, depression Psychiatry evaluated patient and made recommendations Prozac 40 mg daily Seroquel 25 mg at bedtime Diabetes Glucose continues to be well controlled Sepsis (fever, tachycardia, lactic acid) suspect secondary to UTI. Resolved. Patient did have febrile illness, leukocytosis which have resolved Urine culture does indicate Pseudomonas, enterococcus faecalis Status post vancomycin/cefepime/Levaquin IV Status post Cipro 500 mg twice daily for total antibiotic treatment of 14 days (end 05/10) DVT Prophylaxis: Lovenox, TEDs/SCDs. Records reviewed extensively. No change in current treatment plan. Discharge Planning Case management assisting. Problem Qualifiers (1) GI bleed: (2) UTI (urinary tract infection): (3) Effusion of hip joint: Dotty Pacheco May 28, 2017 11:09
[2017-05-28 20:00] VITALS: BP 94/77; PULSE 78; RESP 20; TEMP 96; O2SAT 96
[2017-05-28] MEDS: QUEtiapine FUMARATE 25 MG TAB PO SCH (20:43)
[2017-05-29] MEDS: azaTHIOprine 50 MG TAB PEG SCH ×2 (06:37→17:28)
[2017-05-29] MEDS: FLUoxetine HCL LIQUID 20 MG/5 ML CUP PEG SCH (08:33)
[2017-05-29] MEDS: LACTOBACILLUS ACIDOPHILUS TAB PEG SCH ×2 (08:33→20:43)
[2017-05-29] MEDS: ENOXAPARIN SODIUM 40 MG/0.4 ML SYRINGE SQ SCH (08:33)
[2017-05-29] MEDS: LACTIC ACID (AMMONIUM LACTATE) 12% LOTION 225 GM BTL TOPICAL SCH ×2 (08:33→20:43)
[2017-05-29] MEDS: LANSOPRAZOLE SOLUTAB 30 MG TAB PEG SCH ×2 (08:33→20:43)
[2017-05-29] MEDS: SENNOSIDES SYRUP 8.8 MG/5 ML CUP PEG SCH (08:34)
[2017-05-29] MEDS: predniSONE 20 MG TAB PEG SCH (08:34)
[2017-05-29] MEDS: JUVEN POWDER 1 PACK G-TUBE SCH ×2 (08:34→20:43)
[2017-05-29 12:00] VITALS: BP 121/84; PULSE 86; RESP 16; TEMP 98.1; O2SAT 97
--- NOTE | 2017-05-29 15:14 | HHI.PR ---
Subjective Remarks Follow up Neuro-Bechets syndrome. Patient seen and examined, lying in bed awake and alert. Breathing comfortably. Denies any discomfort or pain. No new acute events overnight. No changes to clinical condition. Afebrile. Objective Vitals Vital Signs Date Time Temp Pulse Resp B/P (MAP) Pulse Ox O2 Delivery O2 Flow Rate FiO2 05/29/17 12:00 98.1 86 16 121/84 (96) 97 05/28/17 20:00 96.0 78 20 94/77 (83) 96 I/O 05/28/17 05/28/17 05/28/17 05/29/17 05/29/17 05/29/17 07:00 15:00 23:00 07:00 15:00 23:00 Intake Total 0 ml 880 ml Output Total 300 ml 450 ml Balance -300 ml -450 ml 880 ml Intake Oral 0 ml Tube Feeding 400 ml Other 480 ml Output Urine Total 300 ml 450 ml # Bowel Movements 0 1 Imaging Last Impressions Chest X-Ray 04/26/17 0000 Signed Impressions: Service Date/Time: Wednesday, April 26, 2017 13:12 - CONCLUSION: 1. Poor inspiratory result. 2. Minimal perihilar atelectatic changes bilaterally. 3. Mild scoliosis of the thoracic spine. Tomi Joseph MD Hip Aspiration/Injection 10/08/16 0000 Signed Impressions: Service Date/Time: Tuesday, October 11, 2016 13:41 - CONCLUSION: Uncomplicated aspiration as above. Minimal fluid on the right. No identifiable fluid on the left Clayton Max MD Lower Extremity Ultrasound 10/06/16 0000 Signed Impressions: Service Date/Time: September 17:29 - CONCLUSION: Normal examination. Josafat Meyer MD CT Angiography 10/06/16 0000 Signed Impressions: Service Date/Time: September 20:31 - CONCLUSION: Minimal right upper lobe infiltrate and basilar atelectasis. No evidence of pulmonary embolism.. Josafat Meyer MD Abdomen/Pelvis CT 10/06/16 0000 Signed Impressions: Service Date/Time: September 20:31 - CONCLUSION: No evidence of pelvic abscess. Josafat Meyer MD Upper Extremity Ultrasound 09/28/16 0000 Signed Impressions: Service Date/Time: Wednesday, September 28, 2016 19:15 - CONCLUSION: 1. Occlusive superficial thrombosis in the left cephalic vein near the antecubital fossa. No deep venous thrombosis. Sumit Bourgeois MD Renal Ultrasound 08/28/16 0000 Signed Impressions: Service Date/Time: Sunday, August 28, 2016 20:03 - CONCLUSION: Mild increased echotexture of both kidneys. Baldev Vu MD Lumbar Puncture Fluoroscopy 08/17/16 0000 Signed Impressions: Service Date/Time: Wednesday, August 17, 2016 12:26 - CONCLUSION: Uncomplicated fluoroscopically guided lumbar puncture. Vishal Beckford Jr., MD Brain MRI 08/17/16 0000 Signed Impressions: Service Date/Time: Wednesday, August 17, 2016 13:28 - CONCLUSION: Remote long-standing areas of abnormality in the brainstem and middle cerebellar peduncle consistent with remote infarcts or contusion. No acute intracranial abnormality. Chacho Bright MD Abdomen X-Ray 08/17/16 Signed Impressions: Service Date/Time: Wednesday, August 17, 2016 13:02 - CONCLUSION: No evidence of obstruction. No MRI incompatible foreign body is identified. Chacho Bright MD Head CT 08/16/16 0000 Signed Impressions: Service Date/Time: Tuesday, August 16, 2016 09:55 - CONCLUSION: Chronic ischemic changes left frontal lobe possibly from evidence of previous ventriculostomy placement, unchanged. No acute intracranial abnormality. Gen Potter MD Modified Barium Swallow 08/15/16 0000 Signed Impressions: Service Date/Time: Monday, August 15, 2016 00:00 - CONCLUSION: See report above and speech pathology report Chacho Bright MD Objective Remarks GENERAL: Well-developed cachectic and contracted male patient in NAD. Awake and alert, nonverbal. Nodding appropriately. SKIN: Warm and dry. No rash. HEENT: Normocephalic. Atraumatic. Pupils equal and round. No scleral icterus. No injection or drainage. No nasal bleeding or discharge. Mucous membranes pink and moist. NECK: Supple. Trachea midline. CARDIOVASCULAR: Regular rate and rhythm. S1, S2 noted. No murmur appreciated. RESPIRATORY: No accessory muscle use. Course and rhonchi throughout lung [place]. Breath sounds equal bilaterally. GASTROINTESTINAL: Abdomen soft, non-tender, nondistended. Normoactive bowel sounds x4. No guarding. PEG tube noted, no erythema or drainage from site, c/d/ i. MUSCULOSKELETAL: No obvious deformities. Extremities without clubbing, cyanosis , or edema. 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 (2) Hospital acquired PNA ICD Code: J18.9 - Pneumonia, unspecified organism Status: Resolved (3) Sepsis ICD Code: A41.9 - Sepsis, unspecified organism Status: Resolved (4) Encephalopathy ICD Code: G93.40 - Encephalopathy, unspecified Status: Resolved (5) GI bleed ICD Code: K92.2 - Gastrointestinal hemorrhage, unspecified Status: Resolved (6) HCAP (healthcare-associated pneumonia) ICD Code: J18.9 - Pneumonia, unspecified organism Status: Resolved (7) UTI (urinary tract infection) ICD Code: N39.0 - Urinary tract infection, site not specified Status: Resolved (8) Leucocytosis ICD Code: D72.829 - Elevated white blood cell count, unspecified Status: Resolved (9) Fever ICD Code: R50.9 - Fever, unspecified Status: Resolved (10) Effusion of hip joint ICD Code: M25.459 - Effusion, unspecified hip Status: Acute (11) 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 Patient was followed by neurology. Aphasic at baseline. Continue Imuran, prednisone EEG shows mild to moderate slowing at times of various depending on the epoch , there was no epileptic activity seen Continue PT/OT Palliative care still following the patient. Still indicating full code and full aggressive measures. 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 Dietary reconsulted and made recommendations. Patient was intolerant to bolus feeding tube feeding continued, TwoCal HN, goal rate 50ml/hr. Free Water Flushes and additional free water flush with Maury bid. Kowalski placed for urinary retention , change monthly. Last changed 05/26/17. Coccyx decubitus Ankle ulceration Wound care nurse is following the patient for management Patient with specialty bed Mood disorder, depression Psychiatry evaluated patient and made recommendations Prozac 40 mg daily Seroquel 25 mg at bedtime Diabetes Glucose continues to be well controlled Sepsis (fever, tachycardia, lactic acid) suspect secondary to UTI. Resolved. Patient did have febrile illness, leukocytosis which have resolved Urine culture does indicate Pseudomonas, enterococcus faecalis Status post vancomycin/cefepime/Levaquin IV Status post Cipro 500 mg twice daily for total antibiotic treatment of 14 days (end 05/10) DVT Prophylaxis: Lovenox, TEDs/SCDs. Records reviewed extensively. No change in current treatment plan. Discharge Planning Case management assisting. Problem Qualifiers (1) GI bleed: (2) UTI (urinary tract infection): (3) Effusion of hip joint: Dotty Pacheco May 29, 2017 15:14
[2017-05-29 20:00] VITALS: BP 101/63; PULSE 81; RESP 20; TEMP 96; O2SAT 96
[2017-05-29] MEDS: QUEtiapine FUMARATE 25 MG TAB PO SCH (20:43)
[2017-05-30] MEDS: azaTHIOprine 50 MG TAB PEG SCH ×2 (05:40→16:42)
[2017-05-30 08:00] VITALS: BP 106/78; PULSE 86; RESP 18; TEMP 98; O2SAT 95
[2017-05-30] MEDS: predniSONE 20 MG TAB PEG SCH (08:36)
[2017-05-30] MEDS: ENOXAPARIN SODIUM 40 MG/0.4 ML SYRINGE SQ SCH (08:36)
[2017-05-30] MEDS: LACTOBACILLUS ACIDOPHILUS TAB PEG SCH ×2 (08:36→20:59)
[2017-05-30] MEDS: SENNOSIDES SYRUP 8.8 MG/5 ML CUP PEG SCH (08:36)
[2017-05-30] MEDS: FLUoxetine HCL LIQUID 20 MG/5 ML CUP PEG SCH (08:36)
[2017-05-30] MEDS: LACTIC ACID (AMMONIUM LACTATE) 12% LOTION 225 GM BTL TOPICAL SCH ×2 (08:36→20:59)
[2017-05-30] MEDS: LANSOPRAZOLE SOLUTAB 30 MG TAB PEG SCH ×2 (08:36→20:59)
[2017-05-30] MEDS: JUVEN POWDER 1 PACK G-TUBE SCH ×2 (08:36→23:11)
--- NOTE | 2017-05-30 11:18 | HHI.PR ---
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 Patient states that he is doing well. Still having blurred vision. No change in clinical status. Awaiting pillowcase cutter discharge planning Objective Vitals Vital Signs Date Time Temp Pulse Resp B/P (MAP) Pulse Ox O2 Delivery O2 Flow Rate FiO2 05/30/17 08:00 98.0 86 18 106/78 (87) 95 05/29/17 20:00 96.0 81 20 101/63 (76) 96 05/29/17 12:00 98.1 86 16 121/84 (96) 97 I/O 05/29/17 05/29/17 05/29/17 05/30/17 05/30/17 05/30/17 07:00 15:00 23:00 07:00 15:00 23:00 Intake Total 880 ml 0 ml 0 ml Output Total 400 ml 375 ml Balance 880 ml -400 ml -375 ml Intake Oral 0 ml 0 ml Tube Feeding 400 ml Other 480 ml Output Urine Total 400 ml 375 ml # Bowel Movements 2 Objective Remarks GENERAL: Well-developed, cachectic and contracted. HEENT: Head is normocephalic without any lesions or masses noted. Facial features are symmetric. Eyes: Extraocular muscles are intact. Conjunctivae were clear. NECK: Trachea midline no deviation. CARDIAC: Regular rhythm, tachycardia noted. S1/S2 are heard. No murmurs gallops or rubs. LUNGS: Clear to auscultation bilaterally. No wheeze, rhonchi or rales. No use of accessory muscles on inspiration or expiration. ABDOMEN: Soft, nontender. Nondistended. Bowel sounds heard in all 4 quadrants. No organomegaly or masses. Negative rebound, negative guarding. PEG tube noted without any excoriation. EXTREMITIES: No edema, pulses are equal bilaterally. No cyanosis or clubbing. Procedures 07/19/16 EGD with PEG tube placement 09/27/16 colonoscopy Urinary Catheter: Yes Assessment to: Continue Kowalski insert reason: Obstruction/Retention Date of Insertion: May 26, 2017 Vascular Central Line Catheter: No A/P Assessment and Plan Neuro-Behcet, history of frontal lobe CVA, encephalopathy, history of meningitis , Blurred vision/double vision, urinary retention, chronic No new changes on imaging. Patient was followed by neurology. Aphasic at baseline. Continue Imuran, prednisone EEG shows mild to moderate slowing at times of various depending on the epoch , there was no epileptic activity seen Continue PT/OT Palliative care still following the patient. 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 05/26/17, --Decreased oral intake and dysphagia on initial presentation Speech therapy evaluated patient. S/P barium swallow. Patient with severe dysphagia. GI was consulted and PEG tube was placed. Patient was intolerant to bolus feeding Dietary reconsulted and made recommendations Coccyx decubitus. Ankle ulceration Wound care nurse is following the patient for management Patient with specialty bed Mood disorder, depression Psychiatry evaluated patient and made recommendations Prozac 40 mg daily Seroquel 25 mg at bedtime Diabetes Glucose continues to be well controlled, Sepsis secondary to urinary tract infection, resolved Patient did have febrile illness, leukocytosis which have resolved Urine culture does indicate Pseudomonas, enterococcus faecalis Status post vancomycin/cefepime/Levaquin IV Status post Cipro 500 mg twice daily for total antibiotic treatment of 14 days DVT Prophylaxis: Lovenox, TEDs/SCDs. Records were reviewed. No change in current treatment plan. Awaiting case management for discharge planning. Discharge Planning Case management for discharge planning, Ede Richardson May 30, 2017 11:18
[2017-05-30 20:09] VITALS: BP 126/96; PULSE 103; RESP 20; TEMP 98.9; O2SAT 96
[2017-05-30] MEDS: QUEtiapine FUMARATE 25 MG TAB PO SCH (20:59)
[2017-05-31] MEDS: azaTHIOprine 50 MG TAB PEG SCH ×2 (06:08→18:00)
[2017-05-31 07:50] VITALS: BP 102/87; PULSE 140; RESP 20; TEMP 99.7; O2SAT 95
[2017-05-31] MEDS: JUVEN POWDER 1 PACK G-TUBE SCH ×2 (09:00→21:25)
--- NOTE | 2017-05-31 09:07 | HHI.PR ---
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 Patient states that he is doing well. Still having blurred vision. No change in clinical status. 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 HEENT: Head is normocephalic without any lesions or masses noted. Facial features are symmetric. Eyes: Extraocular muscles are intact. Conjunctivae were clear. NECK: Trachea midline no deviation. CARDIAC: Regular rhythm, tachycardia noted. S1/S2 are heard. No murmurs gallops or rubs. LUNGS: Clear to auscultation bilaterally. No wheeze, rhonchi or rales. No use of accessory muscles on inspiration or expiration. ABDOMEN: Soft, nontender. Nondistended. Bowel sounds heard in all 4 quadrants. No organomegaly or masses. Negative rebound, negative guarding. PEG tube noted without any excoriation. EXTREMITIES: No edema, pulses are equal bilaterally. No cyanosis or clubbing. Procedures 07/19/16 EGD with PEG tube placement 09/27/16 colonoscopy Urinary Catheter: Yes Assessment to: Continue Kowalski insert reason: Obstruction/Retention Date of Insertion: May 26, 2017 Vascular Central Line Catheter: No A/P Assessment and Plan Neuro-Behcet, history of frontal lobe CVA, encephalopathy, history of meningitis , Blurred vision/double vision, urinary retention, chronic No new changes on imaging. Patient was followed by neurology. Aphasic at baseline. Continue Imuran, prednisone EEG shows mild to moderate slowing at times of various depending on the epoch , there was no epileptic activity seen Continue PT/OT Palliative care still following the patient. 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 05/26/17, --Decreased oral intake and dysphagia on initial presentation Speech therapy evaluated patient. S/P barium swallow. Patient with severe dysphagia. GI was consulted and PEG tube was placed. Patient was intolerant to bolus feeding Dietary reconsulted and made recommendations Coccyx decubitus. Ankle ulceration Wound care nurse is following the patient for management Patient with specialty bed Mood disorder, depression Psychiatry evaluated patient and made recommendations Prozac 40 mg daily Seroquel 25 mg at bedtime Diabetes Glucose continues to be well controlled, Sepsis secondary to urinary tract infection, resolved Patient did have febrile illness, leukocytosis which have resolved Urine culture does indicate Pseudomonas, enterococcus faecalis Status post vancomycin/cefepime/Levaquin IV Status post Cipro 500 mg twice daily for total antibiotic treatment of 14 days DVT Prophylaxis: Lovenox, TEDs/SCDs. Records were reviewed. Awaiting case management for discharge planning. No change in current treatment plan. Discharge Planning Case management for discharge planning, Ede Richardson May 31, 2017 09:07
[2017-05-31] MEDS: FLUoxetine HCL LIQUID 20 MG/5 ML CUP PEG SCH (09:39)
[2017-05-31] MEDS: predniSONE 20 MG TAB PEG SCH (09:40)
[2017-05-31] MEDS: LANSOPRAZOLE SOLUTAB 30 MG TAB PEG SCH ×2 (09:40→21:24)
[2017-05-31] MEDS: LACTOBACILLUS ACIDOPHILUS TAB PEG SCH ×2 (09:40→21:24)
[2017-05-31] MEDS: SENNOSIDES SYRUP 8.8 MG/5 ML CUP PEG SCH (09:40)
[2017-05-31] MEDS: ENOXAPARIN SODIUM 40 MG/0.4 ML SYRINGE SQ SCH (09:41)
[2017-05-31] MEDS: LACTIC ACID (AMMONIUM LACTATE) 12% LOTION 225 GM BTL TOPICAL SCH ×2 (09:42→21:25)
[2017-05-31 20:00] VITALS: BP 121/88; PULSE 100; RESP 20; TEMP 100.2; O2SAT 94
[2017-05-31] MEDS: ACETAMINOPHEN 650 MG SUPP RECTAL PRN (21:24)
[2017-05-31] MEDS: QUEtiapine FUMARATE 25 MG TAB PO SCH (21:24)
[2017-06-01] VITALS: TEMP 98.4
[2017-06-01] MEDS: azaTHIOprine 50 MG TAB PEG SCH ×2 (04:58→18:56)
[2017-06-01 08:50] VITALS: BP 99/66; PULSE 110; RESP 22; TEMP 96.9; O2SAT 96
[2017-06-01] MEDS: JUVEN POWDER 1 PACK G-TUBE SCH ×2 (09:00→21:00)
--- NOTE | 2017-06-01 11:21 | HHI.PR ---
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 Patient lying in bed resting comfortably. Denies any new complaints. No change in clinical status. Patient with low-grade temperature and tachycardia Objective Vitals Vital Signs Date Time Temp Pulse Resp B/P (MAP) Pulse Ox O2 Delivery O2 Flow Rate FiO2 06/01/17 08:50 96.9 110 22 99/66 (77) 96 06/01/17 00:00 98.4 05/31/17 20:00 100.2 100 20 121/88 (99) 94 I/O 05/31/17 05/31/17 05/31/17 06/01/17 06/01/17 06/01/17 07:00 15:00 23:00 07:00 15:00 23:00 Intake Total 0 ml 750 ml Output Total 475 ml 450 ml 250 ml Balance -475 ml -450 ml 500 ml Intake Oral 0 ml IV Total 0 ml Tube Feeding 550 ml Other 200 ml Output Urine Total 475 ml 450 ml 250 ml # Bowel Movements 1 1 1 Objective Remarks GENERAL: Well-developed, cachectic and contracted. HEENT: Head is normocephalic without any lesions or masses noted. Facial features are symmetric. Eyes: Extraocular muscles are intact. Conjunctivae were clear. NECK: Trachea midline no deviation. CARDIAC: Regular rhythm, tachycardia noted. S1/S2 are heard. No murmurs gallops or rubs. LUNGS: Clear to auscultation bilaterally. No wheeze, rhonchi or rales. No use of accessory muscles on inspiration or expiration. ABDOMEN: Soft, nontender. Nondistended. Bowel sounds heard in all 4 quadrants. No organomegaly or masses. Negative rebound, negative guarding. PEG tube noted without any excoriation. EXTREMITIES: No edema, pulses are equal bilaterally. No cyanosis or clubbing. Procedures 07/19/16 EGD with PEG tube placement 09/27/16 colonoscopy Urinary Catheter: Yes Assessment to: Continue Kowalski insert reason: Obstruction/Retention Date of Insertion: May 26, 2017 Vascular Central Line Catheter: No A/P Assessment and Plan Low-grade fever with tachycardia, possible early signs of infection Obtain CBC, BMP, chest x-ray, urinalysis, blood cultures Await results prior to any treatment Neuro-Behcet, history of frontal lobe CVA, encephalopathy, history of meningitis , Blurred vision/double vision, urinary retention, chronic No new changes on imaging. Patient was followed by neurology. Aphasic at baseline. Continue Imuran, prednisone EEG shows mild to moderate slowing at times of various depending on the epoch , there was no epileptic activity seen Continue PT/OT Palliative care still following the patient. 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 05/26/17, --Decreased oral intake and dysphagia on initial presentation Speech therapy evaluated patient. S/P barium swallow. Patient with severe dysphagia. GI was consulted and PEG tube was placed. Patient was intolerant to bolus feeding Dietary reconsulted and made recommendations Coccyx decubitus. Ankle ulceration Wound care nurse is following the patient for management Patient with specialty bed Mood disorder, depression Psychiatry evaluated patient and made recommendations Prozac 40 mg daily Seroquel 25 mg at bedtime Diabetes Glucose continues to be well controlled, Sepsis secondary to urinary tract infection, resolved Patient did have febrile illness, leukocytosis which have resolved Urine culture does indicate Pseudomonas, enterococcus faecalis Status post vancomycin/cefepime/Levaquin IV Status post Cipro 500 mg twice daily for total antibiotic treatment of 14 days DVT Prophylaxis: Lovenox, TEDs/SCDs. Discharge Planning Case management for discharge planning, Ede Richardson Jun 01, 2017 11:21
[2017-06-01] MEDS: POLYETHYLENE GLYCOL 17 GM PKG PEG PRN (11:45)
[2017-06-01] MEDS: PADIMATE (CHAPSTICK) 4.5 GM TUBE TOPICAL PRN (11:45)
[2017-06-01] MEDS: ONDANSETRON HCL 4 MG/5 ML UDC PEG PRN (11:46)
[2017-06-01] MEDS: LACTOBACILLUS ACIDOPHILUS TAB PEG SCH ×2 (11:46→22:30)
[2017-06-01] MEDS: LANSOPRAZOLE SOLUTAB 30 MG TAB PEG SCH ×2 (11:46→22:29)
[2017-06-01] MEDS: ENOXAPARIN SODIUM 40 MG/0.4 ML SYRINGE SQ SCH (11:46)
[2017-06-01] MEDS: SENNOSIDES SYRUP 8.8 MG/5 ML CUP PEG SCH (11:46)
[2017-06-01] MEDS: LACTIC ACID (AMMONIUM LACTATE) 12% LOTION 225 GM BTL TOPICAL SCH ×2 (11:47→22:30)
[2017-06-01] MEDS: FLUoxetine HCL LIQUID 20 MG/5 ML CUP PEG SCH (11:47)
[2017-06-01] MEDS: predniSONE 20 MG TAB PEG SCH (11:50)
--- NOTE | 2017-06-01 12:07 | RADRPT ---
EXAM DATE/TIME: 06/01/2017 11:33 [facility] COMPARISON: No previous studies available for comparison. INDICATIONS : Fever. MEDICAL HISTORY : Hypertension. CVA. Migraines. Numbness bilateral hands. Depression. Clotting problems. Anitcoauglant therapy, Xarelto. VRE (buttock). SURGICAL HISTORY : Abdominal surgery. ENCOUNTER: Subsequent ACUITY: 1 month PAIN SCORE: Non-responsive. LOCATION: chest FINDINGS: A single view of the chest demonstrates bibasilar patchy opacities. Diminished lung volumes. The card iomediastinal contours are unremarkable. Osseous structures are intact. CONCLUSION: Bibasilar patchy infiltrates. Gen Potter MD on June 01, 2017 at 12:05 Board Certified Radiologist. This report was verified electronically.
[2017-06-01 13:13] LABS: AUTOMATED NEUTROPHIL # 7.2 TH/MM3 (1.8-7.7); BASOPHIL # 0.1 TH/MM3 (0-0.2); BASOPHIL % 0.7 % (0.0-2.0); EOSINOPHIL # 0.1 TH/MM3 (0-0.4); EOSINOPHIL % 0.7 % (0.0-4.0); HEMATOCRIT 42.9 % (39.0-51.0); HEMOGLOBIN 13.7 GM/DL (13.0-17.0); LYMPH % 21.2 % (9.0-44.0); LYMPHOCYTE # 2.1 TH/MM3 (1.0-4.8); MEAN CELL VOLUME 93.2 FL (80.0-100.0); MEAN CORPUSCULAR HEMOGLOBIN 29.9 PG (27.0-34.0); MONO % 5.5 % (0.0-8.0); MONOCYTE # 0.6 TH/MM3 (0-0.9); NEUT % 71.9 % (16.0-70.0); PLATELET COUNT 267 TH/MM3 (150-450); RED CELL DISTRIBUTION WIDTH 15.6 % (11.6-17.2); WHITE BLOOD COUNT 10.1 TH/MM3 (4.0-11.0)
[2017-06-01 13:23] LABS: CALCIUM 9.4 MG/DL (8.5-10.1)
[2017-06-01 13:24] LABS: BICARBONATE 32.6 MEQ/L (21.0-32.0)
[2017-06-01 13:27] LABS: CREATININE 1.1 MG/DL (0.60-1.30)
[2017-06-01 13:29] LABS: BILIRUBIN, URINE NEG (NEG); BLOOD, URINE LARGE (NEG); GLUCOSE,URINE NEG (NEG); KETONE, URINE TRACE mg/dL (NEG); NITRITE,URINE POS (NEG); URINE LEUKOCYTE ESTERASE LARGE (NEG)
[2017-06-01 13:36] LABS: URINE COLOR YELLOW (YELLW/STRAW)
[2017-06-01 13:37] LABS: AMORPHOUS SEDIMENT, URINE FEW; BACTERIA, URINE MOD /hpf; SQUAMOUS EPITHELIAL CELL URINE 0-5 /hpf (0-5)
[2017-06-01 13:38] LABS: WHITE BLOOD CELL CLUMPS FEW
[2017-06-01 20:00] VITALS: BP 97/72; PULSE 95; RESP 20; TEMP 96; O2SAT 96
[2017-06-01] MEDS: QUEtiapine FUMARATE 25 MG TAB PO SCH (22:30)
[2017-06-02 04:00] VITALS: O2SAT 94
[2017-06-02] MEDS: azaTHIOprine 50 MG TAB PEG SCH ×2 (05:29→17:49)
[2017-06-02 07:54] VITALS: BP 94/74; PULSE 97; RESP 18; TEMP 96.5; O2SAT 97
--- NOTE | 2017-06-02 08:51 | HHI.PR ---
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 Patient denies any new complaints at this time. Denies any fever or chills. No change in clinical status overnight. Objective Vitals Vital Signs Date Time Temp Pulse Resp B/P (MAP) Pulse Ox O2 Delivery O2 Flow Rate FiO2 06/02/17 07:54 96.5 97 18 94/74 (81) 97 06/02/17 04:00 94 06/01/17 20:00 96.0 95 20 97/72 (80) 96 06/01/17 08:50 96.9 110 22 99/66 (77) 96 I/O 06/01/17 06/01/17 06/01/17 06/02/17 06/02/17 06/02/17 07:00 15:00 23:00 07:00 15:00 23:00 Intake Total 750 ml 0 ml Output Total 250 ml 950 ml Balance 500 ml -950 ml Intake Oral 0 ml IV Total 0 ml Tube Feeding 550 ml Other 200 ml Output Urine Total 250 ml 950 ml # Bowel Movements 1 1 Result Diagram: 06/01/17 1300 06/01/17 1300 Objective Remarks GENERAL: Well-developed, cachectic and contracted. HEENT: Head is normocephalic without any lesions or masses noted. Facial features are symmetric. Eyes: Extraocular muscles are intact. Conjunctivae were clear. NECK: Trachea midline no deviation. CARDIAC: Regular rhythm, tachycardia noted. S1/S2 are heard. No murmurs gallops or rubs. LUNGS: Clear to auscultation bilaterally. No wheeze, rhonchi or rales. No use of accessory muscles on inspiration or expiration. ABDOMEN: Soft, nontender. Nondistended. Bowel sounds heard in all 4 quadrants. No organomegaly or masses. Negative rebound, negative guarding. PEG tube noted without any excoriation. EXTREMITIES: No edema, pulses are equal bilaterally. No cyanosis or clubbing. Procedures 07/19/16 EGD with PEG tube placement 09/27/16 colonoscopy Urinary Catheter: Yes Assessment to: Remove Kowalski insert reason: Obstruction/Retention Date of Insertion: Jun 02, 2017 Vascular Central Line Catheter: No A/P Assessment and Plan Low-grade fever with tachycardia, possible early signs of infection, improved CBC unremarkable, BMP with mild azotemia Urinalysis shows signs of infection, awaiting culture for appropriate antibiotics, replace chronic indwelling Kowalski Chest x-ray shows bibasilar patchy infiltrates Blood cultures are pending Start Levaquin 750 mg daily, after reviewing patient's hospitalized microbiology records Neuro-Behcet, history of frontal lobe CVA, encephalopathy, history of meningitis , Blurred vision/double vision, urinary retention, chronic No new changes on imaging. Patient was followed by neurology. Aphasic at baseline. Continue Imuran, prednisone EEG shows mild to moderate slowing at times of various depending on the epoch , there was no epileptic activity seen Continue PT/OT Palliative care still following the patient. 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 06/02/17 --Decreased oral intake and dysphagia on initial presentation Speech therapy evaluated patient. S/P barium swallow. Patient with severe dysphagia. GI was consulted and PEG tube was placed. Patient was intolerant to bolus feeding Dietary reconsulted and made recommendations Coccyx decubitus. Ankle ulceration Wound care nurse is following the patient for management Patient with specialty bed Mood disorder, depression Psychiatry evaluated patient and made recommendations Prozac 40 mg daily Seroquel 25 mg at bedtime Diabetes Glucose continues to be well controlled, Sepsis secondary to urinary tract infection, resolved Patient did have febrile illness, leukocytosis which have resolved Urine culture does indicate Pseudomonas, enterococcus faecalis Status post vancomycin/cefepime/Levaquin IV Status post Cipro 500 mg twice daily for total antibiotic treatment of 14 days DVT Prophylaxis: Lovenox, TEDs/SCDs. Discharge Planning Case management for discharge planning, Ede Richardson Jun 02, 2017 08:51
[2017-06-02] MEDS: JUVEN POWDER 1 PACK G-TUBE SCH ×2 (08:52→21:00)
[2017-06-02] MEDS: LACTOBACILLUS ACIDOPHILUS TAB PEG SCH ×2 (08:53→22:10)
[2017-06-02] MEDS: FLUoxetine HCL LIQUID 20 MG/5 ML CUP PEG SCH (08:53)
[2017-06-02] MEDS: predniSONE 20 MG TAB PEG SCH (08:53)
[2017-06-02] MEDS: SENNOSIDES SYRUP 8.8 MG/5 ML CUP PEG SCH (08:53)
[2017-06-02] MEDS: LANSOPRAZOLE SOLUTAB 30 MG TAB PEG SCH ×2 (08:53→22:10)
[2017-06-02] MEDS: LACTIC ACID (AMMONIUM LACTATE) 12% LOTION 225 GM BTL TOPICAL SCH ×2 (08:54→22:11)
[2017-06-02] MEDS: ENOXAPARIN SODIUM 40 MG/0.4 ML SYRINGE SQ SCH (08:54)
[2017-06-02] MEDS: LEVOFLOXACIN ORAL SOLN 2500 MG/100 ML BOTTLE PEG SCH (09:38)
[2017-06-02 20:00] VITALS: BP 109/83; PULSE 91; RESP 20; TEMP 96.4; O2SAT 93
[2017-06-02] MEDS: QUEtiapine FUMARATE 25 MG TAB PO SCH (22:10)
[2017-06-03] MEDS: azaTHIOprine 50 MG TAB PEG SCH ×2 (05:14→17:48)
[2017-06-03 08:00] VITALS: BP 127/82; PULSE 95; RESP 18; TEMP 97.4; O2SAT 96
[2017-06-03] MEDS: LEVOFLOXACIN ORAL SOLN 2500 MG/100 ML BOTTLE PEG SCH (08:24)
[2017-06-03] MEDS: FLUoxetine HCL LIQUID 20 MG/5 ML CUP PEG SCH (08:24)
[2017-06-03] MEDS: predniSONE 20 MG TAB PEG SCH (08:24)
[2017-06-03] MEDS: LANSOPRAZOLE SOLUTAB 30 MG TAB PEG SCH ×2 (08:24→21:00)
[2017-06-03] MEDS: LACTOBACILLUS ACIDOPHILUS TAB PEG SCH ×2 (08:24→21:00)
[2017-06-03] MEDS: SENNOSIDES SYRUP 8.8 MG/5 ML CUP PEG SCH (08:24)
[2017-06-03] MEDS: LACTIC ACID (AMMONIUM LACTATE) 12% LOTION 225 GM BTL TOPICAL SCH ×2 (08:25→21:00)
[2017-06-03] MEDS: ENOXAPARIN SODIUM 40 MG/0.4 ML SYRINGE SQ SCH (08:25)
[2017-06-03] MEDS: JUVEN POWDER 1 PACK G-TUBE SCH ×2 (09:00→21:00)
--- NOTE | 2017-06-03 11:07 | HHI.PR ---
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 Patient doing better this time. Denies any new complaints. Vital signs are stable, afebrile Objective Vitals Vital Signs Date Time Temp Pulse Resp B/P (MAP) Pulse Ox O2 Delivery O2 Flow Rate FiO2 06/03/17 08:00 97.4 95 18 127/82 (97) 96 06/02/17 20:00 96.4 91 20 109/83 (92) 93 I/O 06/02/17 06/02/17 06/02/17 06/03/17 06/03/17 06/03/17 07:00 15:00 23:00 07:00 15:00 23:00 Intake Total 0 ml 0 ml 950 ml Output Total 950 ml 250 ml 500 ml Balance -950 ml -250 ml 450 ml Intake Oral 0 ml 0 ml Tube Feeding 550 ml Tube Irrigant 400 ml Output Urine Total 950 ml 250 ml 500 ml # Bowel Movements 1 0 Result Diagram: 06/01/17 1300 06/01/17 1300 Objective Remarks GENERAL: Well-developed, cachectic and contracted. HEENT: Head is normocephalic without any lesions or masses noted. Facial features are symmetric. Eyes: Extraocular muscles are intact. Conjunctivae were clear. NECK: Trachea midline no deviation. CARDIAC: Regular rhythm, tachycardia noted. S1/S2 are heard. No murmurs gallops or rubs. LUNGS: Clear to auscultation bilaterally. No wheeze, rhonchi or rales. No use of accessory muscles on inspiration or expiration. ABDOMEN: Soft, nontender. Nondistended. Bowel sounds heard in all 4 quadrants. No organomegaly or masses. Negative rebound, negative guarding. PEG tube noted without any excoriation. EXTREMITIES: No edema, pulses are equal bilaterally. No cyanosis or clubbing. Procedures 07/19/16 EGD with PEG tube placement 09/27/16 colonoscopy Urinary Catheter: Yes Assessment to: Continue Kowalski insert reason: Obstruction/Retention Date of Insertion: Jun 02, 2017 Vascular Central Line Catheter: No A/P Assessment and Plan Low-grade fever with tachycardia, possible early signs of infection, improved CBC unremarkable, BMP with mild azotemia Urine culture with pseudomonas aeruginosa, sensitive to Levaquin with STAR <2 Chest x-ray shows bibasilar patchy infiltrates Blood cultures are negative for 1 day Continue Levaquin 750 mg daily, continue for 7 days Neuro-Behcet, history of frontal lobe CVA, encephalopathy, history of meningitis , Blurred vision/double vision, urinary retention, chronic No new changes on imaging. Patient was followed by neurology. Aphasic at baseline. Continue Imuran, prednisone EEG shows mild to moderate slowing at times of various depending on the epoch , there was no epileptic activity seen Continue PT/OT Palliative care still following the patient. 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 06/02/17 --Decreased oral intake and dysphagia on initial presentation Speech therapy evaluated patient. S/P barium swallow. Patient with severe dysphagia. GI was consulted and PEG tube was placed. Patient was intolerant to bolus feeding Dietary reconsulted and made recommendations Coccyx decubitus. Ankle ulceration Wound care nurse is following the patient for management Patient with specialty bed Mood disorder, depression Psychiatry evaluated patient and made recommendations Prozac 40 mg daily Seroquel 25 mg at bedtime Diabetes Glucose continues to be well controlled, Sepsis secondary to urinary tract infection, resolved Patient did have febrile illness, leukocytosis which have resolved Urine culture does indicate Pseudomonas, enterococcus faecalis Status post vancomycin/cefepime/Levaquin IV Status post Cipro 500 mg twice daily for total antibiotic treatment of 14 days DVT Prophylaxis: Lovenox, TEDs/SCDs. Discharge Planning Case management for discharge planning, Ede Richardson Jun 03, 2017 11:07
[2017-06-03 19:15] VITALS: BP 123/83; PULSE 90; RESP 16; TEMP 98.8; O2SAT 99
[2017-06-03] MEDS: QUEtiapine FUMARATE 25 MG TAB PO SCH (21:00)
[2017-06-04] MEDS: azaTHIOprine 50 MG TAB PEG SCH ×2 (06:03→17:30)
[2017-06-04 08:00] VITALS: BP 109/74; PULSE 92; RESP 24; TEMP 97.7; O2SAT 95
[2017-06-04] MEDS: LACTOBACILLUS ACIDOPHILUS TAB PEG SCH ×2 (08:41→21:52)
[2017-06-04] MEDS: LACTIC ACID (AMMONIUM LACTATE) 12% LOTION 225 GM BTL TOPICAL SCH ×2 (08:41→21:53)
[2017-06-04] MEDS: LEVOFLOXACIN ORAL SOLN 2500 MG/100 ML BOTTLE PEG SCH (08:41)
[2017-06-04] MEDS: LANSOPRAZOLE SOLUTAB 30 MG TAB PEG SCH ×2 (08:41→21:53)
[2017-06-04] MEDS: FLUoxetine HCL LIQUID 20 MG/5 ML CUP PEG SCH (08:41)
[2017-06-04] MEDS: ENOXAPARIN SODIUM 40 MG/0.4 ML SYRINGE SQ SCH (08:41)
[2017-06-04] MEDS: predniSONE 20 MG TAB PEG SCH (08:41)
[2017-06-04] MEDS: JUVEN POWDER 1 PACK G-TUBE SCH ×2 (08:42→21:52)
--- NOTE | 2017-06-04 08:53 | HHI.PR ---
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 Patient currently stable and undergoing treatment for urinary tract infection and pulmonary infiltrates. Patient's vital signs are stable, afebrile. Objective Vitals Vital Signs Date Time Temp Pulse Resp B/P (MAP) Pulse Ox O2 Delivery O2 Flow Rate FiO2 06/03/17 19:15 98.8 90 16 123/83 (96) 99 I/O 06/03/17 06/03/17 06/03/17 06/04/17 06/04/17 06/04/17 07:00 15:00 23:00 07:00 15:00 23:00 Intake Total 950 ml 950 ml Output Total 500 ml 550 ml 400 ml Balance 450 ml -550 ml 550 ml Tube Feeding 550 ml 550 ml Tube Irrigant 400 ml Other 400 ml Output Urine Total 500 ml 550 ml 400 ml # Bowel Movements 0 1 Result Diagram: 06/01/17 1300 06/01/17 1300 Objective Remarks GENERAL: Well-developed, cachectic and contracted. HEENT: Head is normocephalic without any lesions or masses noted. Facial features are symmetric. Eyes: Extraocular muscles are intact. Conjunctivae were clear. NECK: Trachea midline no deviation. CARDIAC: Regular rhythm, tachycardia noted. S1/S2 are heard. No murmurs gallops or rubs. LUNGS: Clear to auscultation bilaterally. No wheeze, rhonchi or rales. No use of accessory muscles on inspiration or expiration. ABDOMEN: Soft, nontender. Nondistended. Bowel sounds heard in all 4 quadrants. No organomegaly or masses. Negative rebound, negative guarding. PEG tube noted without any excoriation. EXTREMITIES: No edema, pulses are equal bilaterally. No cyanosis or clubbing. Procedures 07/19/16 EGD with PEG tube placement 09/27/16 colonoscopy Urinary Catheter: Yes Assessment to: Continue Kowalski insert reason: Obstruction/Retention Date of Insertion: Jun 02, 2017 Vascular Central Line Catheter: No A/P Assessment and Plan Low-grade fever with tachycardia, possible early signs of infection, secondary to urinary tract infection and left basilar infiltrate. Clinically Improved with treatment CBC unremarkable, BMP with mild azotemia Urine culture with pseudomonas aeruginosa, sensitive to Levaquin with STAR <2 Chest x-ray shows bibasilar patchy infiltrates Blood cultures are negative for 2 day Continue Levaquin 750 mg daily, continue for 7 days Neuro-Behcet, history of frontal lobe CVA, encephalopathy, history of meningitis , Blurred vision/double vision, urinary retention, chronic No new changes on imaging. Patient was followed by neurology. Aphasic at baseline. Continue Imuran, prednisone EEG shows mild to moderate slowing at times of various depending on the epoch , there was no epileptic activity seen Continue PT/OT Palliative care still following the patient. 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 06/02/17 --Decreased oral intake and dysphagia on initial presentation Speech therapy evaluated patient. S/P barium swallow. Patient with severe dysphagia. GI was consulted and PEG tube was placed. Patient was intolerant to bolus feeding Dietary reconsulted and made recommendations Coccyx decubitus. Ankle ulceration Wound care nurse is following the patient for management Patient with specialty bed Mood disorder, depression Psychiatry evaluated patient and made recommendations Prozac 40 mg daily Seroquel 25 mg at bedtime Diabetes Glucose continues to be well controlled, Sepsis secondary to urinary tract infection, resolved Patient did have febrile illness, leukocytosis which have resolved Urine culture does indicate Pseudomonas, enterococcus faecalis Status post vancomycin/cefepime/Levaquin IV Status post Cipro 500 mg twice daily for total antibiotic treatment of 14 days DVT Prophylaxis: Lovenox, TEDs/SCDs. Medical records were reviewed. No change in current treatment plan. Awaiting case management for discharge planning Discharge Planning Case management for discharge planning, Ede Richardson Jun 04, 2017 08:53
[2017-06-04] MEDS: SENNOSIDES SYRUP 8.8 MG/5 ML CUP PEG SCH (08:56)
[2017-06-04 19:15] VITALS: BP 130/79; PULSE 93; RESP 16; TEMP 97.9; O2SAT 96
[2017-06-04 19:25] VITALS: O2SAT 95
[2017-06-04] MEDS: QUEtiapine FUMARATE 25 MG TAB PO SCH (21:53)
[2017-06-05] MEDS: azaTHIOprine 50 MG TAB PEG SCH ×2 (06:52→18:39)
[2017-06-05 08:00] VITALS: BP 124/90; PULSE 82; RESP 18; TEMP 98.1; O2SAT 95; O2SAT 96
[2017-06-05] MEDS: SENNOSIDES SYRUP 8.8 MG/5 ML CUP PEG SCH (08:23)
[2017-06-05] MEDS: ENOXAPARIN SODIUM 40 MG/0.4 ML SYRINGE SQ SCH (08:23)
[2017-06-05] MEDS: FLUoxetine HCL LIQUID 20 MG/5 ML CUP PEG SCH (08:24)
[2017-06-05] MEDS: predniSONE 20 MG TAB PEG SCH (08:24)
[2017-06-05] MEDS: LACTOBACILLUS ACIDOPHILUS TAB PEG SCH ×2 (08:24→21:32)
--- NOTE | 2017-06-05 08:24 | HHI.PR ---
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 Patient doing well. Vital signs are stable, remains afebrile. Objective Vitals Vital Signs Date Time Temp Pulse Resp B/P (MAP) Pulse Ox O2 Delivery O2 Flow Rate FiO2 06/04/17 19:25 95 21 06/04/17 19:15 97.9 93 16 130/79 (96) 96 I/O 06/04/17 06/04/17 06/04/17 06/05/17 06/05/17 06/05/17 07:00 15:00 23:00 07:00 15:00 23:00 Intake Total 950 ml 300 ml 3733 ml Output Total 400 ml 725 ml 500 ml Balance 550 ml -725 ml 300 ml 3233 ml Tube Feeding 550 ml 3433 ml Tube Irrigant 300 ml 300 ml Other 400 ml Output Urine Total 400 ml 725 ml 500 ml # Bowel Movements 0 1 Result Diagram: 06/01/17 1300 06/01/17 1300 Objective Remarks GENERAL: Well-developed, cachectic and contracted. HEENT: Head is normocephalic without any lesions or masses noted. Facial features are symmetric. Eyes: Extraocular muscles are intact. Conjunctivae were clear. NECK: Trachea midline no deviation. CARDIAC: Regular rhythm, tachycardia noted. S1/S2 are heard. No murmurs gallops or rubs. LUNGS: Clear to auscultation bilaterally. No wheeze, rhonchi or rales. No use of accessory muscles on inspiration or expiration. ABDOMEN: Soft, nontender. Nondistended. Bowel sounds heard in all 4 quadrants. No organomegaly or masses. Negative rebound, negative guarding. PEG tube noted without any excoriation. EXTREMITIES: No edema, pulses are equal bilaterally. No cyanosis or clubbing. Procedures 07/19/16 EGD with PEG tube placement 09/27/16 colonoscopy Urinary Catheter: Yes Assessment to: Continue Kowalski insert reason: Obstruction/Retention Date of Insertion: Jun 02, 2017 Vascular Central Line Catheter: No A/P Assessment and Plan Low-grade fever with tachycardia, possible early signs of infection, secondary to urinary tract infection and left basilar infiltrate. Clinically Improved with treatment CBC unremarkable, BMP with mild azotemia Urine culture with pseudomonas aeruginosa, sensitive to Levaquin with STAR <2 Chest x-ray shows bibasilar patchy infiltrates Blood cultures are negative for 3 day Continue Levaquin 750 mg daily, continue for 7 days Neuro-Behcet, history of frontal lobe CVA, encephalopathy, history of meningitis , Blurred vision/double vision, urinary retention, chronic No new changes on imaging. Patient was followed by neurology. Aphasic at baseline. Continue Imuran, prednisone EEG shows mild to moderate slowing at times of various depending on the epoch , there was no epileptic activity seen Continue PT/OT Palliative care still following the patient. 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 06/02/17 --Decreased oral intake and dysphagia on initial presentation Speech therapy evaluated patient. S/P barium swallow. Patient with severe dysphagia. GI was consulted and PEG tube was placed. Patient was intolerant to bolus feeding Dietary reconsulted and made recommendations Coccyx decubitus. Ankle ulceration Wound care nurse is following the patient for management Patient with specialty bed Mood disorder, depression Psychiatry evaluated patient and made recommendations Prozac 40 mg daily Seroquel 25 mg at bedtime Diabetes Glucose continues to be well controlled, Sepsis secondary to urinary tract infection, resolved Patient did have febrile illness, leukocytosis which have resolved Urine culture does indicate Pseudomonas, enterococcus faecalis Status post vancomycin/cefepime/Levaquin IV Status post Cipro 500 mg twice daily for total antibiotic treatment of 14 days DVT Prophylaxis: Lovenox, TEDs/SCDs. Medical records were reviewed. Awaiting case management for discharge planning No change in current treatment plan. Discharge Planning Case management for discharge planning, Ede Richardson Jun 05, 2017 08:24
[2017-06-05] MEDS: LEVOFLOXACIN ORAL SOLN 2500 MG/100 ML BOTTLE PEG SCH (08:25)
[2017-06-05] MEDS: LANSOPRAZOLE SOLUTAB 30 MG TAB PEG SCH ×2 (08:25→21:30)
[2017-06-05] MEDS: LACTIC ACID (AMMONIUM LACTATE) 12% LOTION 225 GM BTL TOPICAL SCH ×2 (08:26→21:33)
[2017-06-05] MEDS: PADIMATE (CHAPSTICK) 4.5 GM TUBE TOPICAL PRN (08:26)
[2017-06-05] MEDS: JUVEN POWDER 1 PACK G-TUBE SCH ×2 (08:29→21:33)
[2017-06-05 20:00] VITALS: BP 137/86; PULSE 82; RESP 18; TEMP 98.5; O2SAT 95
[2017-06-05] MEDS: QUEtiapine FUMARATE 25 MG TAB PO SCH (21:31)
[2017-06-06] MEDS: azaTHIOprine 50 MG TAB PEG SCH ×2 (05:51→17:08)
[2017-06-06 08:00] VITALS: BP 121/89; PULSE 93; RESP 20; TEMP 97.6; O2SAT 95
[2017-06-06] MEDS: FLUoxetine HCL LIQUID 20 MG/5 ML CUP PEG SCH (08:53)
[2017-06-06] MEDS: LACTOBACILLUS ACIDOPHILUS TAB PEG SCH ×2 (08:53→20:40)
[2017-06-06] MEDS: LANSOPRAZOLE SOLUTAB 30 MG TAB PEG SCH ×2 (08:53→20:40)
[2017-06-06] MEDS: ENOXAPARIN SODIUM 40 MG/0.4 ML SYRINGE SQ SCH (08:53)
[2017-06-06] MEDS: predniSONE 20 MG TAB PEG SCH (08:53)
[2017-06-06] MEDS: SENNOSIDES SYRUP 8.8 MG/5 ML CUP PEG SCH (08:53)
[2017-06-06] MEDS: JUVEN POWDER 1 PACK G-TUBE SCH ×2 (08:54→20:40)
--- NOTE | 2017-06-06 10:45 | HHI.PR ---
Subjective Remarks Follow up Neuro Bechets syndrome, bilateral lung infiltrates and UTI. Patient seen and examined. Lying in bed comfortably, awake and alert. Denies any pain. Denies any discomfort. Afebrile. VSS. Objective Vitals Vital Signs Date Time Temp Pulse Resp B/P (MAP) Pulse Ox O2 Delivery O2 Flow Rate FiO2 06/06/17 08:00 97.6 93 20 121/89 (100) 95 06/05/17 20:00 98.5 82 18 137/86 (103) 95 I/O 06/05/17 06/05/17 06/05/17 06/06/17 06/06/17 06/06/17 07:00 15:00 23:00 07:00 15:00 23:00 Intake Total 3733 ml 1450 ml 0 ml Output Total 500 ml 800 ml 600 ml Balance 3233 ml 650 ml -600 ml Intake Oral 0 ml Tube Feeding 3433 ml 770 ml Tube Irrigant 300 ml Other 680 ml Output Urine Total 500 ml 800 ml 600 ml Objective Remarks GENERAL: Well-developed cachectic and contracted male patient in NAD. Awake and alert, nonverbal. Nodding appropriately. SKIN: Warm and dry. No rash. HEENT: Normocephalic. Atraumatic. Pupils equal and round. No scleral icterus. No injection or drainage. No nasal bleeding or discharge. Mucous membranes pink and moist. NECK: Supple. Trachea midline. CARDIOVASCULAR: Regular rate and rhythm. S1, S2 noted. No murmur appreciated. RESPIRATORY: No accessory muscle use. Course and rhonchi throughout lung lawson. Breath sounds equal bilaterally. GASTROINTESTINAL: Abdomen soft, non-tender, nondistended. Normoactive bowel sounds x4. No guarding. PEG tube noted, no erythema or drainage from site, c/d/ i. MUSCULOSKELETAL: No obvious deformities. Extremities without clubbing, cyanosis , or edema. 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 (2) Hospital acquired PNA ICD Code: J18.9 - Pneumonia, unspecified organism Status: Resolved (3) Sepsis ICD Code: A41.9 - Sepsis, unspecified organism Status: Resolved (4) Encephalopathy ICD Code: G93.40 - Encephalopathy, unspecified Status: Resolved (5) GI bleed ICD Code: K92.2 - Gastrointestinal hemorrhage, unspecified Status: Resolved (6) HCAP (healthcare-associated pneumonia) ICD Code: J18.9 - Pneumonia, unspecified organism Status: Resolved (7) UTI (urinary tract infection) ICD Code: N39.0 - Urinary tract infection, site not specified Status: Resolved (8) Leucocytosis ICD Code: D72.829 - Elevated white blood cell count, unspecified Status: Resolved (9) Fever ICD Code: R50.9 - Fever, unspecified Status: Resolved (10) Effusion of hip joint ICD Code: M25.459 - Effusion, unspecified hip Status: Acute (11) 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 Clinically Improved with treatment CBC unremarkable, BMP with mild azotemia Urine culture with pseudomonas aeruginosa, sensitive to Levaquin with STAR <2 Chest x-ray shows bibasilar patchy infiltrates Blood cultures are negative to date. Continue Levaquin 750 mg daily, continue for 7 days (end date 06/08). 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 Patient was followed by neurology. Aphasic at baseline. Continue Imuran, prednisone EEG shows mild to moderate slowing at times of various depending on the epoch , there was no epileptic activity seen Continue PT/OT Palliative care still following the patient. Still indicating full code and full aggressive measures. 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 Dietary reconsulted and made recommendations. Patient was intolerant to bolus feeding tube feeding continued, TwoCal HN, goal rate 50ml/hr. Free Water Flushes and additional free water flush with Maury bid. Kowalski placed for urinary retention , change monthly. Last changed 06/02/17. Coccyx decubitus Ankle ulceration Wound care nurse is following the patient for management Patient with specialty bed Mood disorder, depression Psychiatry evaluated patient and made recommendations Prozac 40 mg daily Seroquel 25 mg at bedtime Diabetes Glucose continues to be well controlled Sepsis (fever, tachycardia, lactic acid) suspect secondary to UTI. Resolved. Patient did have febrile illness, leukocytosis which have resolved Urine culture does indicate Pseudomonas, enterococcus faecalis Status post vancomycin/cefepime/Levaquin IV Status post Cipro 500 mg twice daily for total antibiotic treatment of 14 days (end 05/10) DVT Prophylaxis: Lovenox, TEDs/SCDs. Medical records were reviewed. Awaiting case management for discharge planning. Discharge Planning Case management assisting. Problem Qualifiers (1) GI bleed: (2) UTI (urinary tract infection): (3) Effusion of hip joint: Dotty Pacheco Jun 06, 2017 10:45
[2017-06-06] MEDS: EUCERIN CREAM 120 GM JAR TOPICAL PRN (12:06)
[2017-06-06] MEDS: LEVOFLOXACIN ORAL SOLN 2500 MG/100 ML BOTTLE PEG SCH (12:06)
[2017-06-06 20:00] VITALS: BP 124/87; PULSE 89; RESP 22; TEMP 97.5
[2017-06-06] MEDS: QUEtiapine FUMARATE 25 MG TAB PO SCH (20:40)
[2017-06-07] MEDS: azaTHIOprine 50 MG TAB PEG SCH ×2 (05:05→20:45)
[2017-06-07 07:30] VITALS: BP 121/82; PULSE 100; RESP 20; TEMP 96.7; O2SAT 95
--- NOTE | 2017-06-07 07:39 | HHI.PR ---
Subjective Remarks Follow up Neuro Bechets syndrome. Patient seen and examined, lying in bed sobbing and tearful. Patient denies any pain or discomfort. When asked if he was saw he nodded yes, he was asked if anything new has occurred and he denied any new changes. He nods yes to being sad for still being here and in this situation. Patient consoled. Vitals taken which were all normal. Now resting in bed more comfortably. Objective Vitals Vital Signs Date Time Temp Pulse Resp B/P (MAP) Pulse Ox O2 Delivery O2 Flow Rate FiO2 06/06/17 20:00 97.5 89 22 124/87 (99) 06/06/17 08:00 97.6 93 20 121/89 (100) 95 I/O 06/06/17 06/06/17 06/06/17 06/07/17 06/07/17 06/07/17 07:00 15:00 23:00 07:00 15:00 23:00 Intake Total 0 ml 1480 ml 0 ml Output Total 600 ml 450 ml 700 ml Balance -600 ml -450 ml 1480 ml -700 ml Intake Oral 0 ml 0 ml Tube Feeding 600 ml Other 880 ml Output Urine Total 600 ml 450 ml 700 ml # Bowel Movements 2 Imaging Last Impressions Chest X-Ray 06/01/17 1118 Signed Impressions: Service Date/Time: May 11:33 - CONCLUSION: Bibasilar patchy infiltrates. Gen Potter MD Hip Aspiration/Injection 10/08/16 0000 Signed Impressions: Service Date/Time: Tuesday, October 11, 2016 13:41 - CONCLUSION: Uncomplicated aspiration as above. Minimal fluid on the right. No identifiable fluid on the left Clayton Max MD Lower Extremity Ultrasound 10/06/16 0000 Signed Impressions: Service Date/Time: September 17:29 - CONCLUSION: Normal examination. Josafat Meyer MD CT Angiography 10/06/16 0000 Signed Impressions: Service Date/Time: September 20:31 - CONCLUSION: Minimal right upper lobe infiltrate and basilar atelectasis. No evidence of pulmonary embolism.. Josafat Meyer MD Abdomen/Pelvis CT 10/06/16 0000 Signed Impressions: Service Date/Time: September 20:31 - CONCLUSION: No evidence of pelvic abscess. Josafat Meyer MD Upper Extremity Ultrasound 09/28/16 Signed Impressions: Service Date/Time: Wednesday, September 28, 2016 19:15 - CONCLUSION: 1. Occlusive superficial thrombosis in the left cephalic vein near the antecubital fossa. No deep venous thrombosis. Sumit Bourgeois MD Renal Ultrasound 08/28/16 Signed Impressions: Service Date/Time: Sunday, August 28, 2016 20:03 - CONCLUSION: Mild increased echotexture of both kidneys. Baldev Vu MD Lumbar Puncture Fluoroscopy 08/17/16 0000 Signed Impressions: Service Date/Time: Wednesday, August 17, 2016 12:26 - CONCLUSION: Uncomplicated fluoroscopically guided lumbar puncture. Vishal Beckford Jr., MD Brain MRI 08/17/16 0000 Signed Impressions: Service Date/Time: Wednesday, August 17, 2016 13:28 - CONCLUSION: Remote long-standing areas of abnormality in the brainstem and middle cerebellar peduncle consistent with remote infarcts or contusion. No acute intracranial abnormality. Chacho Bright MD Abdomen X-Ray 08/17/16 Signed Impressions: Service Date/Time: Wednesday, August 17, 2016 13:02 - CONCLUSION: No evidence of obstruction. No MRI incompatible foreign body is identified. Chacho Bright MD Head CT 08/16/16 Signed Impressions: Service Date/Time: Tuesday, August 16, 2016 09:55 - CONCLUSION: Chronic ischemic changes left frontal lobe possibly from evidence of previous ventriculostomy placement, unchanged. No acute intracranial abnormality. Gen Potter MD Modified Barium Swallow 08/15/16 0000 Signed Impressions: Service Date/Time: Monday, August 15, 2016 00:00 - CONCLUSION: See report above and speech pathology report Chacho Bright MD Objective Remarks GENERAL: Well-developed cachectic and contracted male patient in NAD. Awake and alert, nonverbal, tearful, sobbing. Nodding appropriately. SKIN: Warm and dry. No rash. HEENT: Normocephalic. Atraumatic. Pupils equal and round. No scleral icterus. No injection or drainage. No nasal bleeding or discharge. Mucous membranes pink and moist. NECK: Supple. Trachea midline. CARDIOVASCULAR: Regular rate and rhythm. S1, S2 noted. No murmur appreciated. RESPIRATORY: No accessory muscle use. Course and rhonchi throughout lung lawson. Breath sounds equal bilaterally. GASTROINTESTINAL: Abdomen soft, non-tender, nondistended. Normoactive bowel sounds x4. No guarding. PEG tube noted, no erythema or drainage from site, c/d/ i. MUSCULOSKELETAL: No obvious deformities. Extremities without clubbing, cyanosis , or edema. 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 (2) Hospital acquired PNA ICD Code: J18.9 - Pneumonia, unspecified organism Status: Resolved (3) Sepsis ICD Code: A41.9 - Sepsis, unspecified organism Status: Resolved (4) Encephalopathy ICD Code: G93.40 - Encephalopathy, unspecified Status: Resolved (5) GI bleed ICD Code: K92.2 - Gastrointestinal hemorrhage, unspecified Status: Resolved (6) HCAP (healthcare-associated pneumonia) ICD Code: J18.9 - Pneumonia, unspecified organism Status: Resolved (7) UTI (urinary tract infection) ICD Code: N39.0 - Urinary tract infection, site not specified Status: Resolved (8) Leucocytosis ICD Code: D72.829 - Elevated white blood cell count, unspecified Status: Resolved (9) Fever ICD Code: R50.9 - Fever, unspecified Status: Resolved (10) Effusion of hip joint ICD Code: M25.459 - Effusion, unspecified hip Status: Acute (11) 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 Clinically Improved with treatment. History of multiple UTIs with IV antibiotic treatment CBC unremarkable, BMP with mild azotemia Urine culture with pseudomonas aeruginosa, sensitive to Levaquin with STAR <2 Chest x-ray shows bibasilar patchy infiltrates Blood cultures are negative to date. Continue Levaquin 750 mg daily, continue for 7 days (end date 06/08). Oral thrush: Start on Nystatin swish and swallow. Continue to monitor. 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 Patient was followed by neurology. Aphasic at baseline. Continue Imuran, prednisone EEG shows mild to moderate slowing at times of various depending on the epoch , there was no epileptic activity seen Continue PT/OT Palliative care still following the patient. Still indicating full code and full aggressive measures. 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 Dietary reconsulted and made recommendations. Patient was intolerant to bolus feeding tube feeding continued, TwoCal HN, goal rate 50ml/hr. Free Water Flushes and additional free water flush with Maury bid. Kowalski placed for urinary retention , change monthly. Last changed 06/02/17. Coccyx decubitus Ankle ulceration Wound care nurse is following the patient for management Patient with specialty bed Mood disorder, depression Psychiatry evaluated patient and made recommendations Prozac 40 mg daily Seroquel 25 mg at bedtime Diabetes Glucose continues to be well controlled DVT Prophylaxis: Lovenox, TEDs/SCDs. Medical records were reviewed. Awaiting case management for discharge planning. Discharge Planning Case management assisting. Problem Qualifiers (1) GI bleed: (2) UTI (urinary tract infection): (3) Effusion of hip joint: Dotty Pacheco FIELD RESEARCH ASSISTANT Jun 07, 2017 07:39
[2017-06-07] MEDS: JUVEN POWDER 1 PACK G-TUBE SCH ×2 (09:00→21:28)
[2017-06-07 09:20] VITALS: O2SAT 100
[2017-06-07] MEDS: FLUoxetine HCL LIQUID 20 MG/5 ML CUP PEG SCH (12:48)
[2017-06-07] MEDS: LACTOBACILLUS ACIDOPHILUS TAB PEG SCH ×2 (12:48→21:29)
[2017-06-07] MEDS: predniSONE 20 MG TAB PEG SCH (12:49)
[2017-06-07] MEDS: SENNOSIDES SYRUP 8.8 MG/5 ML CUP PEG SCH (12:49)
[2017-06-07] MEDS: ENOXAPARIN SODIUM 40 MG/0.4 ML SYRINGE SQ SCH (12:49)
[2017-06-07] MEDS: LANSOPRAZOLE SOLUTAB 30 MG TAB PEG SCH ×2 (12:50→21:29)
[2017-06-07] MEDS: LEVOFLOXACIN ORAL SOLN 2500 MG/100 ML BOTTLE PEG SCH (13:00)
[2017-06-07] MEDS: NYSTATIN SUSP 500,000 U/5 ML CUP SWISH-SWAL SCH ×3 (15:31→21:28)
[2017-06-07 20:00] VITALS: BP 99/80; PULSE 105; RESP 16; TEMP 97.6; O2SAT 96
[2017-06-07] MEDS: PADIMATE (CHAPSTICK) 4.5 GM TUBE TOPICAL PRN (21:27)
[2017-06-07] MEDS: QUEtiapine FUMARATE 25 MG TAB PO SCH (21:29)
[2017-06-08] MEDS: azaTHIOprine 50 MG TAB PEG SCH ×2 (06:18→18:00)
[2017-06-08] MEDS: LANSOPRAZOLE SOLUTAB 30 MG TAB PEG SCH ×2 (09:00→22:51)
[2017-06-08] MEDS: JUVEN POWDER 1 PACK G-TUBE SCH ×2 (09:00→21:00)
[2017-06-08 09:30] VITALS: BP 111/83; PULSE 97; RESP 18; TEMP 97.3; O2SAT 95
--- NOTE | 2017-06-08 11:51 | HHI.PR ---
Subjective Remarks Follow up Neuro bechets syndrome and UTI. Patient seen and examined today, lying in bed awake and comfortable. No crying or sobbing today. He is improved today and doing well. No reports of any new acute events overnight. Afebrile. Tolerating TF. Afebrile. VSS. Objective Vitals Vital Signs Date Time Temp Pulse Resp B/P (MAP) Pulse Ox O2 Delivery O2 Flow Rate FiO2 06/08/17 09:30 97.3 97 18 111/83 (92) 95 06/07/17 20:00 97.6 105 16 99/80 (86) 96 I/O 06/07/17 06/07/17 06/07/17 06/08/17 06/08/17 06/08/17 07:00 15:00 23:00 07:00 15:00 23:00 Intake Total 0 ml 1100 ml Output Total 700 ml 350 ml 550 ml Balance -700 ml -350 ml 550 ml Intake Oral 0 ml Tube Feeding 600 ml Tube Irrigant 500 ml Output Urine Total 700 ml 350 ml 550 ml # Bowel Movements 2 1 1 Imaging Last Impressions Chest X-Ray 06/01/17 1118 Signed Impressions: Service Date/Time: May 11:33 - CONCLUSION: Bibasilar patchy infiltrates. Gen Potter MD Hip Aspiration/Injection 10/08/16 0000 Signed Impressions: Service Date/Time: Tuesday, October 11, 2016 13:41 - CONCLUSION: Uncomplicated aspiration as above. Minimal fluid on the right. No identifiable fluid on the left Clayton Max MD Lower Extremity Ultrasound 10/06/16 0000 Signed Impressions: Service Date/Time: September 17:29 - CONCLUSION: Normal examination. Josafat Meyer MD CT Angiography 10/06/16 0000 Signed Impressions: Service Date/Time: September 20:31 - CONCLUSION: Minimal right upper lobe infiltrate and basilar atelectasis. No evidence of pulmonary embolism.. Josafat Meyer MD Abdomen/Pelvis CT 10/06/16 0000 Signed Impressions: Service Date/Time: September 20:31 - CONCLUSION: No evidence of pelvic abscess. Josafat Meyer MD Upper Extremity Ultrasound 09/28/16 0000 Signed Impressions: Service Date/Time: Wednesday, September 28, 2016 19:15 - CONCLUSION: 1. Occlusive superficial thrombosis in the left cephalic vein near the antecubital fossa. No deep venous thrombosis. Sumit Bourgeois MD Renal Ultrasound 08/28/16 0000 Signed Impressions: Service Date/Time: Sunday, August 28, 2016 20:03 - CONCLUSION: Mild increased echotexture of both kidneys. Baldev Vu MD Lumbar Puncture Fluoroscopy 08/17/16 0000 Signed Impressions: Service Date/Time: Wednesday, August 17, 2016 12:26 - CONCLUSION: Uncomplicated fluoroscopically guided lumbar puncture. Vishal Beckford Jr., MD Brain MRI 08/17/16 0000 Signed Impressions: Service Date/Time: Wednesday, August 17, 2016 13:28 - CONCLUSION: Remote long-standing areas of abnormality in the brainstem and middle cerebellar peduncle consistent with remote infarcts or contusion. No acute intracranial abnormality. Chacho Bright MD Abdomen X-Ray 08/17/16 Signed Impressions: Service Date/Time: Wednesday, August 17, 2016 13:02 - CONCLUSION: No evidence of obstruction. No MRI incompatible foreign body is identified. Chacho Bright MD Head CT 08/16/16 Signed Impressions: Service Date/Time: Tuesday, August 16, 2016 09:55 - CONCLUSION: Chronic ischemic changes left frontal lobe possibly from evidence of previous ventriculostomy placement, unchanged. No acute intracranial abnormality. Gen Potter MD Modified Barium Swallow 08/15/16 0000 Signed Impressions: Service Date/Time: Monday, August 15, 2016 00:00 - CONCLUSION: See report above and speech pathology report Chacho Bright MD Objective Remarks GENERAL: Well-developed cachectic and contracted male patient in NAD. Awake and alert. Nodding appropriately. SKIN: Warm and dry. No rash. HEENT: Normocephalic. Atraumatic. Pupils equal and round. No scleral icterus. No injection or drainage. No nasal bleeding or discharge. Mucous membranes pink and moist. NECK: Supple. Trachea midline. CARDIOVASCULAR: Regular rate and rhythm. S1, S2 noted. No murmur appreciated. RESPIRATORY: No accessory muscle use. Course and rhonchi throughout lung lawson. Breath sounds equal bilaterally. GASTROINTESTINAL: Abdomen soft, non-tender, nondistended. Normoactive bowel sounds x4. No guarding. PEG tube noted, no erythema or drainage from site, c/d/ i. MUSCULOSKELETAL: No obvious deformities. Extremities without clubbing, cyanosis , or edema. 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 (2) Hospital acquired PNA ICD Code: J18.9 - Pneumonia, unspecified organism Status: Resolved (3) Sepsis ICD Code: A41.9 - Sepsis, unspecified organism Status: Resolved (4) Encephalopathy ICD Code: G93.40 - Encephalopathy, unspecified Status: Resolved (5) GI bleed ICD Code: K92.2 - Gastrointestinal hemorrhage, unspecified Status: Resolved (6) HCAP (healthcare-associated pneumonia) ICD Code: J18.9 - Pneumonia, unspecified organism Status: Resolved (7) UTI (urinary tract infection) ICD Code: N39.0 - Urinary tract infection, site not specified Status: Resolved (8) Leucocytosis ICD Code: D72.829 - Elevated white blood cell count, unspecified Status: Resolved (9) Fever ICD Code: R50.9 - Fever, unspecified Status: Resolved (10) Effusion of hip joint ICD Code: M25.459 - Effusion, unspecified hip Status: Acute (11) 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 Clinically Improved with treatment. History of multiple UTIs with IV antibiotic treatment CBC unremarkable, BMP with mild azotemia Urine culture with pseudomonas aeruginosa, sensitive to Levaquin with STAR <2 Chest x-ray shows bibasilar patchy infiltrates Blood cultures are negative to date. Continue Levaquin 750 mg daily, continue for 7 days (end date 06/08). Oral thrush: Start on Nystatin swish and swallow. Continue to monitor. 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 Patient was followed by neurology. Aphasic at baseline. Continue Imuran, prednisone EEG shows mild to moderate slowing at times of various depending on the epoch , there was no epileptic activity seen Continue PT/OT Palliative care still following the patient. Still indicating full code and full aggressive measures. 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 Dietary reconsulted and made recommendations. Patient was intolerant to bolus feeding tube feeding continued, TwoCal HN, goal rate 50ml/hr. Free Water Flushes and additional free water flush with Maury bid. Kowalski placed for urinary retention , change monthly. Last changed 06/02/17. Coccyx decubitus Ankle ulceration Wound care nurse is following the patient for management Patient with specialty bed Mood disorder, depression Psychiatry evaluated patient and made recommendations Prozac 40 mg daily Seroquel 25 mg at bedtime Diabetes Glucose continues to be well controlled DVT Prophylaxis: Lovenox, TEDs/SCDs. Medical records were reviewed. Awaiting case management for discharge planning. Discharge Planning Case management assisting. Problem Qualifiers (1) GI bleed: (2) UTI (urinary tract infection): (3) Effusion of hip joint: Dotty Pacheco Jun 08, 2017 11:51
[2017-06-08] MEDS: NYSTATIN SUSP 500,000 U/5 ML CUP SWISH-SWAL SCH ×4 (13:00→22:51)
[2017-06-08] MEDS: ENOXAPARIN SODIUM 40 MG/0.4 ML SYRINGE SQ SCH (14:02)
[2017-06-08] MEDS: FLUoxetine HCL LIQUID 20 MG/5 ML CUP PEG SCH (14:02)
[2017-06-08] MEDS: predniSONE 20 MG TAB PEG SCH (14:02)
[2017-06-08] MEDS: SENNOSIDES SYRUP 8.8 MG/5 ML CUP PEG SCH (14:03)
[2017-06-08] MEDS: LACTOBACILLUS ACIDOPHILUS TAB PEG SCH ×2 (14:03→22:51)
--- NOTE | 2017-06-08 16:02 | HHI.HCPN ---
Reason for visit a. To assist with evaluation and management of symptoms including: debility , encephalopathy b. To assist medical decision maker(s) with: better understanding of current medical conditions; weighing benefits/burdens of medical treatment options; making medical treatment decisions. . Subjective/Interval History Patient seen and examined today, EMR reviewed. Patient appears to be resting comfortably in bed, in no apparent distress. He is non-verbal but is able to communicate by nodding/shaking his head. Patient denies any pain, shortness of breath, or discomfort. Patient has been hemodynamically stable, last available laboratory data from 06/01/2017 was unremarkable. Afebrile. Recently treated for UTI. Urine cultures on 06/01/17 growing Pseudomonas; completed antibiotic course on . . Advance Directives Living Will: Never completed Health Care Surrogate: Copy in medical record Durable Power of [place]: Never completed Advance Directive Specifics Health Care Surrogate(s): Patricia Harrell . Objective Vital Signs Date Time Temp Pulse Resp B/P (MAP) Pulse Ox O2 Delivery O2 Flow Rate FiO2 06/08/17 09:30 97.3 97 18 111/83 (92) 95 06/07/17 20:00 97.6 105 16 99/80 (86) 96 Intake & Output 06/08/17 06/08/17 07:00 19:00 Intake Total 1100 ml Output Total 550 ml Balance 550 ml Tube Feeding 600 ml Tube Irrigant 500 ml Output Urine Total 550 ml # Bowel Movements 1 . Physical Exam CONSTITUTIONAL/GENERAL: This is a frail, middle aged male patient, unable to verbalize, able to nod head yes or no to simple questions. TUBES/LINES/DRAINS: PEG tube, indwelling Kowalski catheter SKIN: No jaundice. Skin temperature appropriate. Not diaphoretic. EYES: Pupils equal and round and reactive. Nystagmus, able to move eyes up and down on command. ENT: Hearing grossly normal. Nose without bleeding or purulent drainage. CARDIOVASCULAR: Regular rate and rhythm. No Murmurs, gallops, or rubs. No JVD. Peripheral pulses symmetric. RESPIRATORY/CHEST: Shallow respirations with diminished air exchange, scattered rhonchi. GASTROINTESTINAL: Abdomen soft, non-tender, nondistended. PEG tube in place. No guarding. Normoactive bowel sounds x 4 quadrants. GENITOURINARY: Without palpable bladder distension. Catheter draining clear yellow urine MUSCULOSKELETAL: Extremities without clubbing, cyanosis, or edema. Muscle wasting noted. Contractures in all four extremities. NEUROLOGICAL: Has some purposeful movement, moving eyes upward to indicate yes, and gazing downward to indicate no. No obvious anxiety/agitation on exam. . Diagnostic Tests Procedures -08/19/16 -PEG tube placement -08/17/16- lumbar puncture -10/11/16ultrasound guided aspiration, right hip region. . 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 Now bed bound , completely dependent for all ADLs. Receiving artificial nutrition via PEG tube. Flexion contractures in bilateral lower extremities. (2) Encephalopathy Comment: Patient with diagnosis of neuro-behcet. Patient is bed bound, non- verbal. Eyes are open, but do not track. Pertinent Non-Medical Issues Psychosocial: Reported as . Documented as single in EMR. Patient reportedly has multiple children. Spiritual: No spiritual affiliations. Legal: Patricia Harrell presented as and has been acting as healthcare proxy. Ethical issues impacting care: Patricia Harrell presented as and has been acting as healthcare proxy. . Important Contacts Patricia Mendoza. [phone]. . Prognosis Mr. Mendoza is a 47-year-old male with a past medical history of neuro-Behet' s syndrome diagnosed at [facility], left frontal CVA discovered in November 2015, diabetes mellitus type 2, mural thrombus, brain abscess in 2014, meningitis, hypertension and bedbound state. Patient presented to the ED on 08/13/16 via EMS were reports of decreased oral intake for the prior 2-3 days and skin tear to left upper extremity. He was admitted for sepsis. Patient is at high risk for further complications/setbacks, continued decline and . Code Status: Full Code Plan * FULL CODE * DECISION MAKING: Patient consistently reaffirms that if he should lose capacity, he wishes for Patricia Harrell to act as the [facility] decision maker. * GOALS OF CARE: Aggressive. * Discussed patient Dotty BLACKWELL. * Per JASON Louis legal is currently working with the [facility] consulate to establish passport/travel issues so the patient can be transferred back to [place] to be cared for by his mother. * SYMPTOMS: * =debility: Multifactorial, PT following and working with the patient, passive ROM exercises performed during PT sessions as patient has minimal capability to participate, with only the ability to slightly participation with the LUE. * =dysphagia: Secondary to neuro-Behet's syndrome, S/P PEG tube placement , receiving TF, NPO indefinitely secondary to disease process and ongoing risk of aspiration. * Palliative care will continue to follow-up with this patient as needed, but goals of care is firmly established and it remains aggressive . Attestation To help prompt me to consider important information that might be impacting today's encounter and assessment, information from prior notes written by myself or my colleagues may have been "brought forward" into today's note. My signature on this note, however, is an attestation that I personally performed the exam, history, and/or decision-making noted today, and, unless otherwise indicated, the interactions with patient, family, and staff as well as the review of records all occurred today. I also attest that the listed assessment and stated plan reflect my best clinical judgment today based on the combination of historical information, prior notes, and today's exam/ interactions. When time spent is documented, it refers only to time spent today by the signer, or if indicated, combined time spent today by collaborating physician/nurse practitioner. Alissa Castro Jun 08, 2017 16:02
[2017-06-08 20:00] VITALS: BP 107/73; PULSE 95; RESP 14; TEMP 96.9; O2SAT 96
[2017-06-08] MEDS: QUEtiapine FUMARATE 25 MG TAB PO SCH (22:52)
[2017-06-08] MEDS: HYOSCYAMINE SOLN 0.125 MG/ML 15 ML BTL PEG PRN (22:54)
[2017-06-09] MEDS: azaTHIOprine 50 MG TAB PEG SCH ×2 (07:11→18:00)
[2017-06-09 08:00] VITALS: BP 116/79; PULSE 106; RESP 22; TEMP 98.2; O2SAT 98
[2017-06-09] MEDS: ENOXAPARIN SODIUM 40 MG/0.4 ML SYRINGE SQ SCH (08:43)
[2017-06-09] MEDS: NYSTATIN SUSP 500,000 U/5 ML CUP SWISH-SWAL SCH ×4 (08:43→22:06)
[2017-06-09] MEDS: FLUoxetine HCL LIQUID 20 MG/5 ML CUP PEG SCH (08:43)
[2017-06-09] MEDS: LANSOPRAZOLE SOLUTAB 30 MG TAB PEG SCH ×2 (08:44→22:06)
[2017-06-09] MEDS: JUVEN POWDER 1 PACK G-TUBE SCH ×2 (08:44→22:14)
[2017-06-09] MEDS: LACTOBACILLUS ACIDOPHILUS TAB PEG SCH ×2 (08:44→22:05)
[2017-06-09] MEDS: predniSONE 20 MG TAB PEG SCH (08:44)
[2017-06-09] MEDS: SENNOSIDES SYRUP 8.8 MG/5 ML CUP PEG SCH (08:45)
--- NOTE | 2017-06-09 11:44 | HHI.PR ---
Subjective Remarks Follow up Neuro bechets syndrome and UTI. Patient seen and examined today, lying in bed awake. Denies any pain. No new acute complaints. No change in clinical condition. Objective Vitals Vital Signs Date Time Temp Pulse Resp B/P (MAP) Pulse Ox O2 Delivery O2 Flow Rate FiO2 06/09/17 08:00 98.2 106 22 116/79 (91) 98 06/08/17 20:00 96.9 95 14 107/73 (84) 96 I/O 06/08/17 06/08/17 06/08/17 06/09/17 06/09/17 06/09/17 07:00 15:00 23:00 07:00 15:00 23:00 Intake Total 1100 ml Output Total 550 ml 400 ml 400 ml Balance 550 ml -400 ml -400 ml Tube Feeding 600 ml Tube Irrigant 500 ml Output Urine Total 550 ml 400 ml 400 ml # Bowel Movements 1 0 1 Imaging Last Impressions Chest X-Ray 06/01/17 1118 Signed Impressions: Service Date/Time: May 11:33 - CONCLUSION: Bibasilar patchy infiltrates. Gen Potter MD Hip Aspiration/Injection 10/08/16 0000 Signed Impressions: Service Date/Time: Tuesday, October 11, 2016 13:41 - CONCLUSION: Uncomplicated aspiration as above. Minimal fluid on the right. No identifiable fluid on the left Clayton Max MD Lower Extremity Ultrasound 10/06/16 0000 Signed Impressions: Service Date/Time: September 17:29 - CONCLUSION: Normal examination. Josafat Meyer MD CT Angiography 10/06/16 0000 Signed Impressions: Service Date/Time: September 20:31 - CONCLUSION: Minimal right upper lobe infiltrate and basilar atelectasis. No evidence of pulmonary embolism.. Josafat Meyer MD Abdomen/Pelvis CT 10/06/16 0000 Signed Impressions: Service Date/Time: September 20:31 - CONCLUSION: No evidence of pelvic abscess. Josafat Meyer MD Upper Extremity Ultrasound 09/28/16 0000 Signed Impressions: Service Date/Time: Wednesday, September 28, 2016 19:15 - CONCLUSION: 1. Occlusive superficial thrombosis in the left cephalic vein near the antecubital fossa. No deep venous thrombosis. Sumit Bourgeois MD Renal Ultrasound 08/28/16 Signed Impressions: Service Date/Time: Sunday, August 28, 2016 20:03 - CONCLUSION: Mild increased echotexture of both kidneys. Baldev Vu MD Lumbar Puncture Fluoroscopy 08/17/16 Signed Impressions: Service Date/Time: Wednesday, August 17, 2016 12:26 - CONCLUSION: Uncomplicated fluoroscopically guided lumbar puncture. Vishal Beckford Jr., MD Brain MRI 08/17/16 Signed Impressions: Service Date/Time: Wednesday, August 17, 2016 13:28 - CONCLUSION: Remote long-standing areas of abnormality in the brainstem and middle cerebellar peduncle consistent with remote infarcts or contusion. No acute intracranial abnormality. Chacho Bright MD Abdomen X-Ray 08/17/16 Signed Impressions: Service Date/Time: Wednesday, August 17, 2016 13:02 - CONCLUSION: No evidence of obstruction. No MRI incompatible foreign body is identified. Chacho Bright MD Head CT 08/16/16 Signed Impressions: Service Date/Time: Tuesday, August 16, 2016 09:55 - CONCLUSION: Chronic ischemic changes left frontal lobe possibly from evidence of previous ventriculostomy placement, unchanged. No acute intracranial abnormality. Gen Potter MD Modified Barium Swallow 08/15/16 Signed Impressions: Service Date/Time: Monday, August 15, 2016 00:00 - CONCLUSION: See report above and speech pathology report Chacho Bright MD Objective Remarks GENERAL: Well-developed cachectic and contracted male patient in NAD. Awake and alert. Nodding appropriately. SKIN: Warm and dry. No rash. HEENT: Normocephalic. Atraumatic. Pupils equal and round. No scleral icterus. No injection or drainage. No nasal bleeding or discharge. Mucous membranes pink and moist. NECK: Supple. Trachea midline. CARDIOVASCULAR: Regular rate and rhythm. S1, S2 noted. No murmur appreciated. RESPIRATORY: No accessory muscle use. Course and rhonchi throughout lung lawson. Breath sounds equal bilaterally. GASTROINTESTINAL: Abdomen soft, non-tender, nondistended. Normoactive bowel sounds x4. No guarding. PEG tube noted, no erythema or drainage from site, c/d/ i. MUSCULOSKELETAL: No obvious deformities. Extremities without clubbing, cyanosis , or edema. 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 (2) Hospital acquired PNA ICD Code: J18.9 - Pneumonia, unspecified organism Status: Resolved (3) Sepsis ICD Code: A41.9 - Sepsis, unspecified organism Status: Resolved (4) Encephalopathy ICD Code: G93.40 - Encephalopathy, unspecified Status: Resolved (5) GI bleed ICD Code: K92.2 - Gastrointestinal hemorrhage, unspecified Status: Resolved (6) HCAP (healthcare-associated pneumonia) ICD Code: J18.9 - Pneumonia, unspecified organism Status: Resolved (7) UTI (urinary tract infection) ICD Code: N39.0 - Urinary tract infection, site not specified Status: Resolved (8) Leucocytosis ICD Code: D72.829 - Elevated white blood cell count, unspecified Status: Resolved (9) Fever ICD Code: R50.9 - Fever, unspecified Status: Resolved (10) Effusion of hip joint ICD Code: M25.459 - Effusion, unspecified hip Status: Acute (11) 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 Clinically Improved with treatment. History of multiple UTIs with IV antibiotic treatment CBC unremarkable, BMP with mild azotemia Urine culture with pseudomonas aeruginosa, sensitive to Levaquin with STAR <2 Chest x-ray shows bibasilar patchy infiltrates Blood cultures are negative to date. Status post Levaquin (end date 06/08). Oral thrush: Nystatin swish and swallow. Continue to monitor. 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 Patient was followed by neurology. Aphasic at baseline. Continue Imuran, prednisone EEG shows mild to moderate slowing at times of various depending on the epoch , there was no epileptic activity seen Continue PT/OT Palliative care still following the patient. Still indicating full code and full aggressive measures. 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 Dietary reconsulted and made recommendations. Patient was intolerant to bolus feeding tube feeding continued, TwoCal HN, goal rate 50ml/hr. Free Water Flushes and additional free water flush with Maury bid. Kowalski placed for urinary retention , change monthly. Last changed 06/02/17. Coccyx decubitus Ankle ulceration Wound care nurse is following the patient for management Patient with specialty bed Mood disorder, depression Psychiatry evaluated patient and made recommendations Prozac 40 mg daily Seroquel 25 mg at bedtime Diabetes Glucose continues to be well controlled DVT Prophylaxis: Lovenox, TEDs/SCDs. Medical records were reviewed. Awaiting case management for discharge planning. Discharge Planning Case management assisting. Problem Qualifiers (1) GI bleed: (2) UTI (urinary tract infection): (3) Effusion of hip joint: Dotty Pacheco Jun 09, 2017 11:44
[2017-06-09 20:00] VITALS: BP 114/98; PULSE 85; RESP 20; TEMP 98.4; O2SAT 98
[2017-06-09] MEDS: QUEtiapine FUMARATE 25 MG TAB PO SCH (22:05)
[2017-06-10] MEDS: azaTHIOprine 50 MG TAB PEG SCH ×2 (05:44→17:40)
[2017-06-10 08:00] VITALS: BP 126/78; PULSE 89; RESP 20; TEMP 96.7; O2SAT 99
[2017-06-10] MEDS: ENOXAPARIN SODIUM 40 MG/0.4 ML SYRINGE SQ SCH (08:51)
[2017-06-10] MEDS: LACTOBACILLUS ACIDOPHILUS TAB PEG SCH ×2 (08:51→22:40)
[2017-06-10] MEDS: LANSOPRAZOLE SOLUTAB 30 MG TAB PEG SCH ×2 (08:51→22:40)
[2017-06-10] MEDS: FLUoxetine HCL LIQUID 20 MG/5 ML CUP PEG SCH (08:51)
[2017-06-10] MEDS: JUVEN POWDER 1 PACK G-TUBE SCH ×2 (08:52→22:41)
[2017-06-10] MEDS: SENNOSIDES SYRUP 8.8 MG/5 ML CUP PEG SCH (08:52)
[2017-06-10] MEDS: predniSONE 20 MG TAB PEG SCH (08:52)
[2017-06-10] MEDS: NYSTATIN SUSP 500,000 U/5 ML CUP SWISH-SWAL SCH ×4 (08:52→22:40)
--- NOTE | 2017-06-10 09:31 | HHI.PR ---
Subjective Remarks Follow up Neuro Bechets syndrome. Patient seen and examined, lying in bed awake. Alert. Denies any pain. Denies any discomfort. Breathing comfortably. No change in clinical condition. No reports of any acute events overnight. Afebrile. VSS. Objective Vitals Vital Signs Date Time Temp Pulse Resp B/P (MAP) Pulse Ox O2 Delivery O2 Flow Rate FiO2 06/10/17 08:00 96.7 89 20 126/78 (94) 99 06/09/17 20:00 98.4 85 20 114/98 (103) 98 I/O 06/09/17 06/09/17 06/09/17 06/10/17 06/10/17 06/10/17 07:00 15:00 23:00 07:00 15:00 23:00 Intake Total 120 ml 720 ml Output Total 400 ml 400 ml 600 ml Balance -400 ml -400 ml 120 ml 120 ml Tube Feeding 600 ml Other 120 ml 120 ml Output Urine Total 400 ml 400 ml 600 ml # Bowel Movements 1 0 Imaging Last Impressions Chest X-Ray 06/01/17 1118 Signed Impressions: Service Date/Time: May 11:33 - CONCLUSION: Bibasilar patchy infiltrates. Gen Potter MD Hip Aspiration/Injection 10/08/16 0000 Signed Impressions: Service Date/Time: Tuesday, October 11, 2016 13:41 - CONCLUSION: Uncomplicated aspiration as above. Minimal fluid on the right. No identifiable fluid on the left Clayton Max MD Lower Extremity Ultrasound 10/06/16 0000 Signed Impressions: Service Date/Time: September 17:29 - CONCLUSION: Normal examination. Josafat Meyer MD CT Angiography 10/06/16 0000 Signed Impressions: Service Date/Time: September 20:31 - CONCLUSION: Minimal right upper lobe infiltrate and basilar atelectasis. No evidence of pulmonary embolism.. Josafat Meyer MD Abdomen/Pelvis CT 10/06/16 0000 Signed Impressions: Service Date/Time: September 20:31 - CONCLUSION: No evidence of pelvic abscess. Josafat Meyer MD Upper Extremity Ultrasound 09/28/16 0000 Signed Impressions: Service Date/Time: Wednesday, September 28, 2016 19:15 - CONCLUSION: 1. Occlusive superficial thrombosis in the left cephalic vein near the antecubital fossa. No deep venous thrombosis. Sumit Bourgeois MD Renal Ultrasound 08/28/16 Signed Impressions: Service Date/Time: Sunday, August 28, 2016 20:03 - CONCLUSION: Mild increased echotexture of both kidneys. Baldev Vu MD Lumbar Puncture Fluoroscopy 08/17/16 Signed Impressions: Service Date/Time: Wednesday, August 17, 2016 12:26 - CONCLUSION: Uncomplicated fluoroscopically guided lumbar puncture. Vishal Beckford Jr., MD Brain MRI 08/17/16 Signed Impressions: Service Date/Time: Wednesday, August 17, 2016 13:28 - CONCLUSION: Remote long-standing areas of abnormality in the brainstem and middle cerebellar peduncle consistent with remote infarcts or contusion. No acute intracranial abnormality. Chacho Bright MD Abdomen X-Ray 08/17/16 Signed Impressions: Service Date/Time: Wednesday, August 17, 2016 13:02 - CONCLUSION: No evidence of obstruction. No MRI incompatible foreign body is identified. Chacho Bright MD Head CT 08/16/16 Signed Impressions: Service Date/Time: Tuesday, August 16, 2016 09:55 - CONCLUSION: Chronic ischemic changes left frontal lobe possibly from evidence of previous ventriculostomy placement, unchanged. No acute intracranial abnormality. Gen Potter MD Modified Barium Swallow 08/15/16 Signed Impressions: Service Date/Time: Monday, August 15, 2016 00:00 - CONCLUSION: See report above and speech pathology report Chacho Bright MD Objective Remarks GENERAL: Well-developed cachectic and contracted male patient in NAD. Awake and alert. Nodding appropriately. SKIN: Warm and dry. No rash. HEENT: Normocephalic. Atraumatic. Pupils equal and round. No scleral icterus. No injection or drainage. No nasal bleeding or discharge. Mucous membranes pink and moist. NECK: Supple. Trachea midline. CARDIOVASCULAR: Regular rate and rhythm. S1, S2 noted. No murmur appreciated. RESPIRATORY: No accessory muscle use. Course and rhonchi throughout lung [place]son. Breath sounds equal bilaterally. GASTROINTESTINAL: Abdomen soft, non-tender, nondistended. Normoactive bowel sounds x4. No guarding. PEG tube noted, no erythema or drainage from site, c/d/ i. MUSCULOSKELETAL: No obvious deformities. Extremities without clubbing, cyanosis , or edema. 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 (2) Hospital acquired PNA ICD Code: J18.9 - Pneumonia, unspecified organism Status: Resolved (3) Sepsis ICD Code: A41.9 - Sepsis, unspecified organism Status: Resolved (4) Encephalopathy ICD Code: G93.40 - Encephalopathy, unspecified Status: Resolved (5) GI bleed ICD Code: K92.2 - Gastrointestinal hemorrhage, unspecified Status: Resolved (6) HCAP (healthcare-associated pneumonia) ICD Code: J18.9 - Pneumonia, unspecified organism Status: Resolved (7) UTI (urinary tract infection) ICD Code: N39.0 - Urinary tract infection, site not specified Status: Resolved (8) Leucocytosis ICD Code: D72.829 - Elevated white blood cell count, unspecified Status: Resolved (9) Fever ICD Code: R50.9 - Fever, unspecified Status: Resolved (10) Effusion of hip joint ICD Code: M25.459 - Effusion, unspecified hip Status: Acute (11) 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 Clinically Improved with treatment. History of multiple UTIs with IV antibiotic treatment CBC unremarkable, BMP with mild azotemia Urine culture with pseudomonas aeruginosa, sensitive to Levaquin with STAR <2 Chest x-ray shows bibasilar patchy infiltrates Blood cultures are negative to date. Status post Levaquin (end date 06/08). Oral thrush: Nystatin swish and swallow. Continue to monitor. 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 Patient was followed by neurology. Aphasic at baseline. Continue Imuran, prednisone EEG shows mild to moderate slowing at times of various depending on the epoch , there was no epileptic activity seen Continue PT/OT Palliative care still following the patient. Still indicating full code and full aggressive measures. 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 Dietary reconsulted and made recommendations. Patient was intolerant to bolus feeding tube feeding continued, TwoCal HN, goal rate 50ml/hr. Free Water Flushes and additional free water flush with Maury bid. Kowalski placed for urinary retention , change monthly. Last changed 06/02/17. Coccyx decubitus Ankle ulceration Wound care nurse is following the patient for management Patient with specialty bed Mood disorder, depression Psychiatry evaluated patient and made recommendations Prozac 40 mg daily Seroquel 25 mg at bedtime Diabetes Glucose continues to be well controlled DVT Prophylaxis: Lovenox, TEDs/SCDs. Medical records were reviewed. Awaiting case management for discharge planning. Discharge Planning Case management assisting. Problem Qualifiers (1) GI bleed: (2) UTI (urinary tract infection): (3) Effusion of hip joint: Dotty Pacheco Jun 10, 2017 09:31
[2017-06-10 20:00] VITALS: BP 112/79; PULSE 80; RESP 20; TEMP 96.2; O2SAT 99
[2017-06-10] MEDS: QUEtiapine FUMARATE 25 MG TAB PO SCH (22:40)
[2017-06-11] MEDS: azaTHIOprine 50 MG TAB PEG SCH ×2 (05:06→18:25)
[2017-06-11 08:00] VITALS: BP 118/80; PULSE 84; RESP 18; TEMP 96.8; O2SAT 99
[2017-06-11] MEDS: LACTOBACILLUS ACIDOPHILUS TAB PEG SCH ×2 (08:52→21:43)
[2017-06-11] MEDS: predniSONE 20 MG TAB PEG SCH (08:53)
[2017-06-11] MEDS: LANSOPRAZOLE SOLUTAB 30 MG TAB PEG SCH ×2 (08:53→21:43)
[2017-06-11] MEDS: FLUoxetine HCL LIQUID 20 MG/5 ML CUP PEG SCH (08:53)
[2017-06-11] MEDS: SENNOSIDES SYRUP 8.8 MG/5 ML CUP PEG SCH (08:53)
[2017-06-11] MEDS: NYSTATIN SUSP 500,000 U/5 ML CUP SWISH-SWAL SCH ×4 (08:54→21:43)
[2017-06-11] MEDS: ENOXAPARIN SODIUM 40 MG/0.4 ML SYRINGE SQ SCH (08:54)
[2017-06-11] MEDS: JUVEN POWDER 1 PACK G-TUBE SCH ×2 (08:55→21:44)
[2017-06-11] MEDS: EUCERIN CREAM 120 GM JAR TOPICAL PRN (08:56)
[2017-06-11] MEDS: PADIMATE (CHAPSTICK) 4.5 GM TUBE TOPICAL PRN (08:57)
--- NOTE | 2017-06-11 11:34 | HHI.PR ---
Subjective Remarks Follow up Neuro Bechets syndrome. Patient seen and examined, sitting up in bed comfortably. Awake and alert. Denies any pain. No change in clinical condition. Tolerating TF. Afebrile. Objective Vitals Vital Signs Date Time Temp Pulse Resp B/P (MAP) Pulse Ox O2 Delivery O2 Flow Rate FiO2 06/11/17 08:00 96.8 84 18 118/80 (93) 99 06/10/17 20:00 96.2 80 20 112/79 (90) 99 I/O 06/10/17 06/10/17 06/10/17 06/11/17 06/11/17 06/11/17 07:00 15:00 23:00 07:00 15:00 23:00 Intake Total 720 ml 200 ml 800 ml 800 ml Output Total 600 ml 360 ml 575 ml Balance 120 ml -160 ml 800 ml 225 ml Intake Oral 0 ml Tube Feeding 600 ml 600 ml 600 ml Tube Irrigant 200 ml 200 ml Other 120 ml 200 ml Output Urine Total 600 ml 360 ml 575 ml # Bowel Movements 1 Imaging Last Impressions Chest X-Ray 06/01/17 1118 Signed Impressions: Service Date/Time: May 11:33 - CONCLUSION: Bibasilar patchy infiltrates. Gen Potter MD Hip Aspiration/Injection 10/08/16 0000 Signed Impressions: Service Date/Time: Tuesday, October 11, 2016 13:41 - CONCLUSION: Uncomplicated aspiration as above. Minimal fluid on the right. No identifiable fluid on the left Clayton Max MD Lower Extremity Ultrasound 10/06/16 0000 Signed Impressions: Service Date/Time: September 17:29 - CONCLUSION: Normal examination. Josafat Meyer MD CT Angiography 10/06/16 0000 Signed Impressions: Service Date/Time: September 20:31 - CONCLUSION: Minimal right upper lobe infiltrate and basilar atelectasis. No evidence of pulmonary embolism.. Josafat Meyer MD Abdomen/Pelvis CT 10/06/16 0000 Signed Impressions: Service Date/Time: September 20:31 - CONCLUSION: No evidence of pelvic abscess. Josafat Meyer MD Upper Extremity Ultrasound 09/28/16 0000 Signed Impressions: Service Date/Time: Wednesday, September 28, 2016 19:15 - CONCLUSION: 1. Occlusive superficial thrombosis in the left cephalic vein near the antecubital fossa. No deep venous thrombosis. Sumit Bourgeois MD Renal Ultrasound 08/28/16 Signed Impressions: Service Date/Time: Sunday, August 28, 2016 20:03 - CONCLUSION: Mild increased echotexture of both kidneys. Baldev Vu MD Lumbar Puncture Fluoroscopy 08/17/16 Signed Impressions: Service Date/Time: Wednesday, August 17, 2016 12:26 - CONCLUSION: Uncomplicated fluoroscopically guided lumbar puncture. Vishal Beckford Jr., MD Brain MRI 08/17/16 Signed Impressions: Service Date/Time: Wednesday, August 17, 2016 13:28 - CONCLUSION: Remote long-standing areas of abnormality in the brainstem and middle cerebellar peduncle consistent with remote infarcts or contusion. No acute intracranial abnormality. Chacho Bright MD Abdomen X-Ray 08/17/16 Signed Impressions: Service Date/Time: Wednesday, August 17, 2016 13:02 - CONCLUSION: No evidence of obstruction. No MRI incompatible foreign body is identified. Chacho Bright MD Head CT 08/16/16 Signed Impressions: Service Date/Time: Tuesday, August 16, 2016 09:55 - CONCLUSION: Chronic ischemic changes left frontal lobe possibly from evidence of previous ventriculostomy placement, unchanged. No acute intracranial abnormality. Gen Potter MD Modified Barium Swallow 08/15/16 0000 Signed Impressions: Service Date/Time: Monday, August 15, 2016 00:00 - CONCLUSION: See report above and speech pathology report Chacho Bright MD Objective Remarks GENERAL: Well-developed cachectic and contracted male patient in NAD. Awake and alert. Nodding appropriately. SKIN: Warm and dry. No rash. HEENT: Normocephalic. Atraumatic. Pupils equal and round. No scleral icterus. No injection or drainage. No nasal bleeding or discharge. Mucous membranes pink and moist. NECK: Supple. Trachea midline. CARDIOVASCULAR: Regular rate and rhythm. S1, S2 noted. No murmur appreciated. RESPIRATORY: No accessory muscle use. Course and rhonchi throughout lung [place]. Breath sounds equal bilaterally. GASTROINTESTINAL: Abdomen soft, non-tender, nondistended. Normoactive bowel sounds x4. No guarding. PEG tube noted, no erythema or drainage from site, c/d/ i. MUSCULOSKELETAL: No obvious deformities. Extremities without clubbing, cyanosis , or edema. 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 (2) Hospital acquired PNA ICD Code: J18.9 - Pneumonia, unspecified organism Status: Resolved (3) Sepsis ICD Code: A41.9 - Sepsis, unspecified organism Status: Resolved (4) Encephalopathy ICD Code: G93.40 - Encephalopathy, unspecified Status: Resolved (5) GI bleed ICD Code: K92.2 - Gastrointestinal hemorrhage, unspecified Status: Resolved (6) HCAP (healthcare-associated pneumonia) ICD Code: J18.9 - Pneumonia, unspecified organism Status: Resolved (7) UTI (urinary tract infection) ICD Code: N39.0 - Urinary tract infection, site not specified Status: Resolved (8) Leucocytosis ICD Code: D72.829 - Elevated white blood cell count, unspecified Status: Resolved (9) Fever ICD Code: R50.9 - Fever, unspecified Status: Resolved (10) Effusion of hip joint ICD Code: M25.459 - Effusion, unspecified hip Status: Acute (11) 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 Clinically Improved with treatment. History of multiple UTIs with IV antibiotic treatment CBC unremarkable, BMP with mild azotemia Urine culture with pseudomonas aeruginosa, sensitive to Levaquin with STAR <2 Chest x-ray shows bibasilar patchy infiltrates Blood cultures are negative to date. Status post Levaquin (end date 06/08). Oral thrush: Nystatin swish and swallow. Continue to monitor. 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 Patient was followed by neurology. Aphasic at baseline. Continue Imuran, prednisone EEG shows mild to moderate slowing at times of various depending on the epoch , there was no epileptic activity seen Continue PT/OT Palliative care still following the patient. Still indicating full code and full aggressive measures. 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 Dietary reconsulted and made recommendations. Patient was intolerant to bolus feeding tube feeding continued, TwoCal HN, goal rate 50ml/hr. Free Water Flushes and additional free water flush with Maury bid. Kowalski placed for urinary retention , change monthly. Last changed 06/02/17. Coccyx decubitus Ankle ulceration Wound care nurse is following the patient for management Patient with specialty bed Mood disorder, depression Psychiatry evaluated patient and made recommendations Prozac 40 mg daily Seroquel 25 mg at bedtime Diabetes Glucose continues to be well controlled DVT Prophylaxis: Lovenox, TEDs/SCDs. Medical records were reviewed. Awaiting case management for discharge planning. Discharge Planning Case management assisting. Problem Qualifiers (1) GI bleed: (2) UTI (urinary tract infection): (3) Effusion of hip joint: Dotty Pacheco Jun 11, 2017 11:34
[2017-06-11 20:00] VITALS: BP 128/76; PULSE 66; RESP 21; TEMP 98; O2SAT 98
[2017-06-11] MEDS: QUEtiapine FUMARATE 25 MG TAB PO SCH (21:43)
[2017-06-12] MEDS: azaTHIOprine 50 MG TAB PEG SCH ×2 (05:55→17:57)
[2017-06-12] MEDS: JUVEN POWDER 1 PACK G-TUBE SCH ×2 (09:00→20:53)
[2017-06-12] MEDS: FLUoxetine HCL LIQUID 20 MG/5 ML CUP PEG SCH (09:01)
[2017-06-12] MEDS: LACTOBACILLUS ACIDOPHILUS TAB PEG SCH ×2 (09:01→20:53)
[2017-06-12] MEDS: SENNOSIDES SYRUP 8.8 MG/5 ML CUP PEG SCH (09:01)
[2017-06-12] MEDS: predniSONE 20 MG TAB PEG SCH (09:02)
[2017-06-12] MEDS: NYSTATIN SUSP 500,000 U/5 ML CUP SWISH-SWAL SCH ×4 (09:02→20:53)
[2017-06-12] MEDS: ENOXAPARIN SODIUM 40 MG/0.4 ML SYRINGE SQ SCH (09:02)
[2017-06-12] MEDS: LANSOPRAZOLE SOLUTAB 30 MG TAB PEG SCH ×2 (09:02→20:53)
[2017-06-12 09:36] VITALS: BP 106/72; PULSE 94; RESP 16; TEMP 96.7; O2SAT 95
--- NOTE | 2017-06-12 10:15 | HHI.PR ---
Subjective Remarks Follow up Neuro Bechets syndrome. Patient seen and examined. Lying in bed comfortably. Denies any new acute complaints. No change in clinical condition. VSS. No reports of acute events or change overnight. Objective Vitals Vital Signs Date Time Temp Pulse Resp B/P (MAP) Pulse Ox O2 Delivery O2 Flow Rate FiO2 06/12/17 09:36 96.7 94 16 106/72 (83) 95 06/11/17 20:00 98.0 66 21 128/76 (93) 98 I/O 06/11/17 06/11/17 06/11/17 06/12/17 06/12/17 06/12/17 07:00 15:00 23:00 07:00 15:00 23:00 Intake Total 800 ml 1280 ml Output Total 575 ml 900 ml 600 ml Balance 225 ml 380 ml -600 ml Intake Oral 0 ml 0 ml Tube Feeding 600 ml 600 ml Other 200 ml 680 ml Output Urine Total 575 ml 900 ml 600 ml # Bowel Movements 1 Imaging Last Impressions Chest X-Ray 06/01/17 1118 Signed Impressions: Service Date/Time: May 11:33 - CONCLUSION: Bibasilar patchy infiltrates. Gen Potter MD Hip Aspiration/Injection 10/08/16 0000 Signed Impressions: Service Date/Time: Tuesday, October 11, 2016 13:41 - CONCLUSION: Uncomplicated aspiration as above. Minimal fluid on the right. No identifiable fluid on the left Clayton Max MD Lower Extremity Ultrasound 10/06/16 0000 Signed Impressions: Service Date/Time: September 17:29 - CONCLUSION: Normal examination. Josafat Meyer MD CT Angiography 10/06/16 0000 Signed Impressions: Service Date/Time: September 20:31 - CONCLUSION: Minimal right upper lobe infiltrate and basilar atelectasis. No evidence of pulmonary embolism.. Josafat Meyer MD Abdomen/Pelvis CT 10/06/16 0000 Signed Impressions: Service Date/Time: September 20:31 - CONCLUSION: No evidence of pelvic abscess. Josafat Meyer MD Upper Extremity Ultrasound 09/28/16 0000 Signed Impressions: Service Date/Time: Wednesday, September 28, 2016 19:15 - CONCLUSION: 1. Occlusive superficial thrombosis in the left cephalic vein near the antecubital fossa. No deep venous thrombosis. Sumit Bourgeois MD Renal Ultrasound 08/28/16 Signed Impressions: Service Date/Time: Sunday, August 28, 2016 20:03 - CONCLUSION: Mild increased echotexture of both kidneys. Baldev Vu MD Lumbar Puncture Fluoroscopy 08/17/16 Signed Impressions: Service Date/Time: Wednesday, August 17, 2016 12:26 - CONCLUSION: Uncomplicated fluoroscopically guided lumbar puncture. Vishal Beckford Jr., MD Brain MRI 08/17/16 Signed Impressions: Service Date/Time: Wednesday, August 17, 2016 13:28 - CONCLUSION: Remote long-standing areas of abnormality in the brainstem and middle cerebellar peduncle consistent with remote infarcts or contusion. No acute intracranial abnormality. Chacho Bright MD Abdomen X-Ray 08/17/16 Signed Impressions: Service Date/Time: Wednesday, August 17, 2016 13:02 - CONCLUSION: No evidence of obstruction. No MRI incompatible foreign body is identified. Chacho Bright MD Head CT 08/16/16 Signed Impressions: Service Date/Time: Tuesday, August 16, 2016 09:55 - CONCLUSION: Chronic ischemic changes left frontal lobe possibly from evidence of previous ventriculostomy placement, unchanged. No acute intracranial abnormality. Gen Potter MD Modified Barium Swallow 08/15/16 Signed Impressions: Service Date/Time: Monday, August 15, 2016 00:00 - CONCLUSION: See report above and speech pathology report Chacho Bright MD Objective Remarks GENERAL: Well-developed cachectic and contracted male patient in NAD. Awake and alert. Nodding appropriately. SKIN: Warm and dry. No rash. HEENT: Normocephalic. Atraumatic. Pupils equal and round. No scleral icterus. No injection or drainage. No nasal bleeding or discharge. Mucous membranes pink and moist. NECK: Supple. Trachea midline. CARDIOVASCULAR: Regular rate and rhythm. S1, S2 noted. No murmur appreciated. RESPIRATORY: No accessory muscle use. Course and rhonchi throughout lung [place]. Breath sounds equal bilaterally. GASTROINTESTINAL: Abdomen soft, non-tender, nondistended. Normoactive bowel sounds x4. No guarding. PEG tube noted, no erythema or drainage from site, c/d/ i. MUSCULOSKELETAL: No obvious deformities. Extremities without clubbing, cyanosis , or edema. 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 (2) Hospital acquired PNA ICD Code: J18.9 - Pneumonia, unspecified organism Status: Resolved (3) Sepsis ICD Code: A41.9 - Sepsis, unspecified organism Status: Resolved (4) Encephalopathy ICD Code: G93.40 - Encephalopathy, unspecified Status: Resolved (5) GI bleed ICD Code: K92.2 - Gastrointestinal hemorrhage, unspecified Status: Resolved (6) HCAP (healthcare-associated pneumonia) ICD Code: J18.9 - Pneumonia, unspecified organism Status: Resolved (7) UTI (urinary tract infection) ICD Code: N39.0 - Urinary tract infection, site not specified Status: Resolved (8) Leucocytosis ICD Code: D72.829 - Elevated white blood cell count, unspecified Status: Resolved (9) Fever ICD Code: R50.9 - Fever, unspecified Status: Resolved (10) Effusion of hip joint ICD Code: M25.459 - Effusion, unspecified hip Status: Acute (11) 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 Clinically Improved with treatment. History of multiple UTIs with IV antibiotic treatment CBC unremarkable, BMP with mild azotemia Urine culture with pseudomonas aeruginosa, sensitive to Levaquin with STAR <2 Chest x-ray shows bibasilar patchy infiltrates Blood cultures are negative to date. Status post Levaquin (end date 06/08). Oral thrush: Nystatin swish and swallow. Continue to monitor. Improving. 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 Patient was followed by neurology. Aphasic at baseline. Continue Imuran, prednisone EEG shows mild to moderate slowing at times of various depending on the epoch , there was no epileptic activity seen Continue PT/OT Palliative care still following the patient. Still indicating full code and full aggressive measures. 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 Dietary reconsulted and made recommendations. Patient was intolerant to bolus feeding tube feeding continued, TwoCal HN, goal rate 50ml/hr. Free Water Flushes and additional free water flush with Maury bid. Kowalski placed for urinary retention , change monthly. Last changed 06/02/17. Coccyx decubitus Ankle ulceration Wound care nurse is following the patient for management Patient with specialty bed Mood disorder, depression Psychiatry evaluated patient and made recommendations Prozac 40 mg daily Seroquel 25 mg at bedtime Diabetes Glucose continues to be well controlled DVT Prophylaxis: Lovenox, TEDs/SCDs. Medical records were reviewed. Awaiting case management for discharge planning. Discharge Planning Case management assisting. Problem Qualifiers (1) GI bleed: (2) UTI (urinary tract infection): (3) Effusion of hip joint: Dotty Pacheco Jun 12, 2017 10:15
[2017-06-12 20:00] VITALS: BP 119/73; PULSE 81; RESP 20; TEMP 98.5; O2SAT 95
[2017-06-12] MEDS: QUEtiapine FUMARATE 25 MG TAB PO SCH (20:53)
[2017-06-13] MEDS: azaTHIOprine 50 MG TAB PEG SCH ×2 (05:45→17:42)
[2017-06-13 09:25] VITALS: BP 130/85; PULSE 86; RESP 16; TEMP 96.8; O2SAT 97
[2017-06-13] MEDS: NYSTATIN SUSP 500,000 U/5 ML CUP SWISH-SWAL SCH ×4 (09:51→20:07)
[2017-06-13] MEDS: LACTOBACILLUS ACIDOPHILUS TAB PEG SCH ×2 (09:52→20:07)
[2017-06-13] MEDS: FLUoxetine HCL LIQUID 20 MG/5 ML CUP PEG SCH (09:52)
[2017-06-13] MEDS: SENNOSIDES SYRUP 8.8 MG/5 ML CUP PEG SCH (09:52)
[2017-06-13] MEDS: LANSOPRAZOLE SOLUTAB 30 MG TAB PEG SCH ×2 (09:52→20:07)
[2017-06-13] MEDS: predniSONE 20 MG TAB PEG SCH (09:53)
[2017-06-13] MEDS: JUVEN POWDER 1 PACK G-TUBE SCH ×2 (09:54→20:07)
[2017-06-13] MEDS: ENOXAPARIN SODIUM 40 MG/0.4 ML SYRINGE SQ SCH (09:54)
--- NOTE | 2017-06-13 12:53 | HHI.PR ---
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 Patient denies any new complaints. No change in clinical status. Vital signs are stable, patient remains afebrile Objective Vitals Vital Signs Date Time Temp Pulse Resp B/P (MAP) Pulse Ox O2 Delivery O2 Flow Rate FiO2 06/13/17 09:25 96.8 86 16 130/85 (100) 97 06/12/17 20:00 98.5 81 20 119/73 (88) 95 I/O 06/12/17 06/12/17 06/12/17 06/13/17 06/13/17 06/13/17 07:00 15:00 23:00 07:00 15:00 23:00 Intake Total 950 ml Output Total 600 ml 1000 ml Balance -600 ml 950 ml -1000 ml Tube Feeding 550 ml Other 400 ml Output Urine Total 600 ml 1000 ml # Bowel Movements 1 0 Objective Remarks GENERAL: Well-developed, cachectic and contracted. HEENT: Head is normocephalic without any lesions or masses noted. Facial features are symmetric. Eyes: Extraocular muscles are intact. Conjunctivae were clear. NECK: Trachea midline no deviation. CARDIAC: Regular rhythm, tachycardia noted. S1/S2 are heard. No murmurs gallops or rubs. LUNGS: Clear to auscultation bilaterally. No wheeze, rhonchi or rales. No use of accessory muscles on inspiration or expiration. ABDOMEN: Soft, nontender. Nondistended. Bowel sounds heard in all 4 quadrants. No organomegaly or masses. Negative rebound, negative guarding. PEG tube noted without any excoriation. EXTREMITIES: No edema, pulses are equal bilaterally. No cyanosis or clubbing. Procedures 07/19/16 EGD with PEG tube placement 09/27/16 colonoscopy Urinary Catheter: Yes Assessment to: Continue Kowalski insert reason: Obstruction/Retention Date of Insertion: Jun 02, 2017 Vascular Central Line Catheter: No A/P Assessment and Plan Neuro-Behcet, history of frontal lobe CVA, encephalopathy, history of meningitis , Blurred vision/double vision, urinary retention, chronic No new changes on imaging. Patient was followed by neurology. Aphasic at baseline. Continue Imuran, prednisone EEG shows mild to moderate slowing at times of various depending on the epoch , there was no epileptic activity seen Continue PT/OT Palliative care still following the patient. 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 06/02/17 --Decreased oral intake and dysphagia on initial presentation Speech therapy evaluated patient. S/P barium swallow. Patient with severe dysphagia. GI was consulted and PEG tube was placed. Patient was intolerant to bolus feeding Dietary reconsulted and made recommendations Oral thrush Likely secondary to recent antibiotic use Continue nystatin for 2 weeks Coccyx decubitus. Ankle ulceration Wound care nurse is following the patient for management Patient with specialty bed Mood disorder, depression Psychiatry evaluated patient and made recommendations Prozac 40 mg daily Seroquel 25 mg at bedtime Diabetes Glucose continues to be well controlled, Low-grade fever with tachycardia, possible early signs of infection, secondary to urinary tract infection and left basilar infiltrate. Clinically Improved with treatment CBC unremarkable, BMP with mild azotemia Urine culture with pseudomonas aeruginosa, sensitive to Levaquin with STAR <2 Chest x-ray shows bibasilar patchy infiltrates Blood cultures are negative for 3 day Completed Levaquin 750 mg daily for 7 days Sepsis secondary to urinary tract infection, resolved Patient did have febrile illness, leukocytosis which have resolved Urine culture does indicate Pseudomonas, enterococcus faecalis Status post vancomycin/cefepime/Levaquin IV Status post Cipro 500 mg twice daily for total antibiotic treatment of 14 days DVT Prophylaxis: Lovenox, TEDs/SCDs. Medical records were reviewed. No change in current treatment plan. Awaiting case management for discharge planning Discharge Planning Case management for discharge planning, Ede Richardson Jun 13, 2017 12:53
[2017-06-13 20:00] VITALS: BP 159/88; PULSE 89; RESP 20; TEMP 96; O2SAT 95
[2017-06-13] MEDS: QUEtiapine FUMARATE 25 MG TAB PO SCH (20:07)
[2017-06-14] MEDS: azaTHIOprine 50 MG TAB PEG SCH ×2 (05:32→18:37)
[2017-06-14 07:50] VITALS: BP 143/93; PULSE 96; RESP 20; TEMP 98.1; O2SAT 97
[2017-06-14] MEDS: JUVEN POWDER 1 PACK G-TUBE SCH ×2 (09:00→21:00)
[2017-06-14] MEDS: FLUoxetine HCL LIQUID 20 MG/5 ML CUP PEG SCH (10:36)
[2017-06-14] MEDS: LACTOBACILLUS ACIDOPHILUS TAB PEG SCH ×2 (10:36→21:35)
[2017-06-14] MEDS: SENNOSIDES SYRUP 8.8 MG/5 ML CUP PEG SCH (10:36)
[2017-06-14] MEDS: ENOXAPARIN SODIUM 40 MG/0.4 ML SYRINGE SQ SCH (10:37)
[2017-06-14] MEDS: predniSONE 20 MG TAB PEG SCH (10:37)
[2017-06-14] MEDS: NYSTATIN SUSP 500,000 U/5 ML CUP SWISH-SWAL SCH ×3 (10:37→21:35)
[2017-06-14] MEDS: LANSOPRAZOLE SOLUTAB 30 MG TAB PEG SCH ×2 (10:37→21:35)
--- NOTE | 2017-06-14 10:56 | PD.WCN.NOT ---
Wound Consult Description: Patient seen on [address]rd [address] [facility] for follow up of R lateral malleolus wound and closed wound to sacrococcygeal area. Communicated with: APRYL Schwarz and FERCHO Nugent Recommendation: Please cleanse wound to R lateral malleolus with normal saline and apply Optifoam gentle 4x4 over wound. Change every 2 to 3 days or PRN if saturated or dislodged. Please apply skin prep to periwound before applying dressing Please continue to leave sacral scar tissue open to air and apply skin prep BID to protect Additional Information: Patient seen on [facility] 3rd floor for follow up of R lateral malleolus wound and closed wound to sacrococcygeal area. Patient was turned to R side with the assistance of real estate underwriter to reveal intact scar tissue to sacrococcygeal area. Skin prep was applied and left open to air. Patient was the repositioned to L side for R lateral malleolus wound assessment. Removed dressing in place to reveal open wound to R Lateral malleolus. Per Ede BRANTLEY wound was closed and has since reopened. 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 Patient wound has reopened to full thickness with ~100% beefy red tissue. Wound measures 1cm x 1.4cm x 0.4cm . Wound has minimal thin yellow exudate that was cleansed from wound with normal saline. Active drainage from wound is sero- sanguinous without odor. Periwound is noted with scar tissue, but is otherwise unremarkable.Applied Maxorb extra AG over wound bed and covered with bordered gauze. Recommended Optifoam, had no Optifoam available. Applied dressing according to current orders in place. Arleen Gibbs [facility] Jun 14, 2017 10:55
--- NOTE | 2017-06-14 13:05 | HHI.PR ---
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 Patient denies any new complaints. No change in clinical status. Awaiting case management for discharge planning. Objective Vitals Vital Signs Date Time Temp Pulse Resp B/P (MAP) Pulse Ox O2 Delivery O2 Flow Rate FiO2 06/14/17 07:50 98.1 96 20 143/93 (110) 97 06/13/17 20:00 96.0 89 20 159/88 (111) 95 I/O 06/13/17 06/13/17 06/13/17 06/14/17 06/14/17 06/14/17 07:00 15:00 23:00 07:00 15:00 23:00 Intake Total 0 ml Output Total 1000 ml 625 ml Balance -1000 ml -625 ml Intake Oral 0 ml Output Urine Total 1000 ml 625 ml # Bowel Movements 0 2 Objective Remarks GENERAL: Well-developed, cachectic and contracted. HEENT: Head is normocephalic without any lesions or masses noted. Facial features are symmetric. Eyes: Extraocular muscles are intact. Conjunctivae were clear. NECK: Trachea midline no deviation. CARDIAC: Regular rhythm, tachycardia noted. S1/S2 are heard. No murmurs gallops or rubs. LUNGS: Clear to auscultation bilaterally. No wheeze, rhonchi or rales. No use of accessory muscles on inspiration or expiration. ABDOMEN: Soft, nontender. Nondistended. Bowel sounds heard in all 4 quadrants. No organomegaly or masses. Negative rebound, negative guarding. PEG tube noted without any excoriation. EXTREMITIES: No edema, pulses are equal bilaterally. No cyanosis or clubbing. Procedures 07/19/16 EGD with PEG tube placement 09/27/16 colonoscopy Urinary Catheter: Yes Assessment to: Continue Kowalski insert reason: Obstruction/Retention Date of Insertion: Jun 02, 2017 Vascular Central Line Catheter: No A/P Assessment and Plan Neuro-Behcet, history of frontal lobe CVA, encephalopathy, history of meningitis , Blurred vision/double vision, urinary retention, chronic No new changes on imaging. Patient was followed by neurology. Aphasic at baseline. Continue Imuran, prednisone EEG shows mild to moderate slowing at times of various depending on the epoch , there was no epileptic activity seen Continue PT/OT Palliative care still following the patient. 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 06/02/17 --Decreased oral intake and dysphagia on initial presentation Speech therapy evaluated patient. S/P barium swallow. Patient with severe dysphagia. GI was consulted and PEG tube was placed. Patient was intolerant to bolus feeding Dietary reconsulted and made recommendations Oral thrush Likely secondary to recent antibiotic use Continue nystatin for 2 weeks Coccyx decubitus. Ankle ulceration Wound care nurse is following the patient for management Patient with specialty bed Mood disorder, depression Psychiatry evaluated patient and made recommendations Prozac 40 mg daily Seroquel 25 mg at bedtime Diabetes Glucose continues to be well controlled, Low-grade fever with tachycardia, possible early signs of infection, secondary to urinary tract infection and left basilar infiltrate. Clinically Improved with treatment CBC unremarkable, BMP with mild azotemia Urine culture with pseudomonas aeruginosa, sensitive to Levaquin with STAR <2 Chest x-ray shows bibasilar patchy infiltrates Blood cultures are negative for 3 day Completed Levaquin 750 mg daily for 7 days Sepsis secondary to urinary tract infection, resolved Patient did have febrile illness, leukocytosis which have resolved Urine culture does indicate Pseudomonas, enterococcus faecalis Status post vancomycin/cefepime/Levaquin IV Status post Cipro 500 mg twice daily for total antibiotic treatment of 14 days DVT Prophylaxis: Lovenox, TEDs/SCDs. Medical records were reviewed. Awaiting case management for discharge planning No change in current treatment plan. Discharge Planning Case management for discharge planning, Ede Richardson Jun 14, 2017 13:05
[2017-06-14 20:00] VITALS: BP 116/85; PULSE 96; RESP 20; TEMP 97.4; O2SAT 94
[2017-06-14] MEDS: QUEtiapine FUMARATE 25 MG TAB PO SCH (21:35)
[2017-06-15] MEDS: azaTHIOprine 50 MG TAB PEG SCH ×2 (06:10→18:29)
[2017-06-15 07:50] VITALS: BP 100/75; PULSE 99; RESP 20; TEMP 96.9; O2SAT 96
--- NOTE | 2017-06-15 08:54 | HHI.PR ---
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 Patient lying in bed comfortably. Denies any new complaints. No change in clinical status. Objective Vitals Vital Signs Date Time Temp Pulse Resp B/P (MAP) Pulse Ox O2 Delivery O2 Flow Rate FiO2 06/14/17 20:00 97.4 96 20 116/85 (95) 94 I/O 06/14/17 06/14/17 06/14/17 06/15/17 06/15/17 06/15/17 07:00 15:00 23:00 07:00 15:00 23:00 Intake Total 0 ml 100 ml 1410 ml Output Total 625 ml 450 ml Balance -625 ml -350 ml 1410 ml Intake Oral 0 ml Tube Feeding 850 ml Other 100 ml 560 ml Output Urine Total 625 ml 450 ml # Bowel Movements 2 1 Objective Remarks GENERAL: Well-developed, cachectic and contracted. HEENT: Head is normocephalic without any lesions or masses noted. Facial features are symmetric. Eyes: Extraocular muscles are intact. Conjunctivae were clear. NECK: Trachea midline no deviation. CARDIAC: Regular rhythm, tachycardia noted. S1/S2 are heard. No murmurs gallops or rubs. LUNGS: Clear to auscultation bilaterally. No wheeze, rhonchi or rales. No use of accessory muscles on inspiration or expiration. ABDOMEN: Soft, nontender. Nondistended. Bowel sounds heard in all 4 quadrants. No organomegaly or masses. Negative rebound, negative guarding. PEG tube noted without any excoriation. EXTREMITIES: No edema, pulses are equal bilaterally. No cyanosis or clubbing. Procedures 07/19/16 EGD with PEG tube placement 09/27/16 colonoscopy Urinary Catheter: Yes Assessment to: Continue Kowalski insert reason: Obstruction/Retention Date of Insertion: Jun 02, 2017 Vascular Central Line Catheter: No A/P Assessment and Plan Neuro-Behcet, history of frontal lobe CVA, encephalopathy, history of meningitis , Blurred vision/double vision, urinary retention, chronic No new changes on imaging. Patient was followed by neurology. Aphasic at baseline. Continue Imuran, prednisone EEG shows mild to moderate slowing at times of various depending on the epoch , there was no epileptic activity seen Continue PT/OT Palliative care still following the patient. 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 06/02/17 --Decreased oral intake and dysphagia on initial presentation Speech therapy evaluated patient. S/P barium swallow. Patient with severe dysphagia. GI was consulted and PEG tube was placed. Patient was intolerant to bolus feeding Dietary reconsulted and made recommendations Oral thrush Likely secondary to recent antibiotic use Continue nystatin for 2 weeks Coccyx decubitus. Ankle ulceration Wound care nurse is following the patient for management Patient with specialty bed Mood disorder, depression Psychiatry evaluated patient and made recommendations Prozac 40 mg daily Seroquel 25 mg at bedtime Diabetes Glucose continues to be well controlled, Low-grade fever with tachycardia, possible early signs of infection, secondary to urinary tract infection and left basilar infiltrate. Resolved with treatment CBC unremarkable, BMP with mild azotemia Urine culture with pseudomonas aeruginosa, sensitive to Levaquin with STAR <2 Chest x-ray shows bibasilar patchy infiltrates Blood cultures are negative for 3 day Completed Levaquin 750 mg daily for 7 days Sepsis secondary to urinary tract infection, resolved Patient did have febrile illness, leukocytosis which have resolved Urine culture does indicate Pseudomonas, enterococcus faecalis Status post vancomycin/cefepime/Levaquin IV Status post Cipro 500 mg twice daily for total antibiotic treatment of 14 days DVT Prophylaxis: Lovenox, TEDs/SCDs. Medical records were reviewed. No change in current treatment plan. Awaiting case management for discharge planning Discharge Planning Case management for discharge planning, Ede Richardson Jun 15, 2017 08:53
[2017-06-15] MEDS: SENNOSIDES SYRUP 8.8 MG/5 ML CUP PEG SCH (11:13)
[2017-06-15] MEDS: FLUoxetine HCL LIQUID 20 MG/5 ML CUP PEG SCH (11:13)
[2017-06-15] MEDS: LACTOBACILLUS ACIDOPHILUS TAB PEG SCH ×2 (11:14→23:12)
[2017-06-15] MEDS: predniSONE 20 MG TAB PEG SCH (11:14)
[2017-06-15] MEDS: LANSOPRAZOLE SOLUTAB 30 MG TAB PEG SCH ×2 (11:15→23:12)
[2017-06-15] MEDS: NYSTATIN SUSP 500,000 U/5 ML CUP SWISH-SWAL SCH ×4 (11:15→23:12)
[2017-06-15] MEDS: ENOXAPARIN SODIUM 40 MG/0.4 ML SYRINGE SQ SCH (11:15)
[2017-06-15] MEDS: JUVEN POWDER 1 PACK G-TUBE SCH ×2 (11:31→21:00)
[2017-06-15 20:00] VITALS: BP 115/83; PULSE 86; RESP 20; TEMP 96.8; O2SAT 97
[2017-06-15] MEDS: QUEtiapine FUMARATE 25 MG TAB PO SCH (23:12)
[2017-06-16] MEDS: azaTHIOprine 50 MG TAB PEG SCH ×2 (05:24→17:23)
[2017-06-16 08:00] VITALS: BP 126/66; PULSE 102; RESP 20; TEMP 98.4; O2SAT 94
--- NOTE | 2017-06-16 08:03 | HHI.PR ---
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 No indication of any new complaints. Change clinical status. Awaiting case management for discharge planning. Objective Vitals Vital Signs Date Time Temp Pulse Resp B/P (MAP) Pulse Ox O2 Delivery O2 Flow Rate FiO2 06/15/17 20:00 96.8 86 20 115/83 (94) 97 I/O 06/15/17 06/15/17 06/15/17 06/16/17 06/16/17 06/16/17 07:00 15:00 23:00 07:00 15:00 23:00 Intake Total 1410 ml 400 ml 440 ml 1200 ml Output Total 1100 ml 400 ml Balance 1410 ml 400 ml -660 ml 800 ml Tube Feeding 850 ml 800 ml Other 560 ml 400 ml 440 ml 400 ml Output Urine Total 1100 ml 400 ml # Bowel Movements 0 1 Objective Remarks GENERAL: Well-developed, cachectic and contracted. HEENT: Head is normocephalic without any lesions or masses noted. Facial features are symmetric. Eyes: Extraocular muscles are intact. Conjunctivae were clear. NECK: Trachea midline no deviation. CARDIAC: Regular rhythm, tachycardia noted. S1/S2 are heard. No murmurs gallops or rubs. LUNGS: Clear to auscultation bilaterally. No wheeze, rhonchi or rales. No use of accessory muscles on inspiration or expiration. ABDOMEN: Soft, nontender. Nondistended. Bowel sounds heard in all 4 quadrants. No organomegaly or masses. Negative rebound, negative guarding. PEG tube noted without any excoriation. EXTREMITIES: No edema, pulses are equal bilaterally. No cyanosis or clubbing. Procedures 07/19/16 EGD with PEG tube placement 09/27/16 colonoscopy Urinary Catheter: Yes Assessment to: Continue Kowalski insert reason: Obstruction/Retention Date of Insertion: Jun 02, 2017 Vascular Central Line Catheter: No A/P Assessment and Plan Neuro-Behcet, history of frontal lobe CVA, encephalopathy, history of meningitis , Blurred vision/double vision, urinary retention, chronic No new changes on imaging. Patient was followed by neurology. Aphasic at baseline. Continue Imuran, prednisone EEG shows mild to moderate slowing at times of various depending on the epoch , there was no epileptic activity seen Continue PT/OT Palliative care still following the patient. 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 06/02/17 --Decreased oral intake and dysphagia on initial presentation Speech therapy evaluated patient. S/P barium swallow. Patient with severe dysphagia. GI was consulted and PEG tube was placed. Patient was intolerant to bolus feeding Dietary reconsulted and made recommendations Oral thrush Likely secondary to recent antibiotic use Continue nystatin for 2 weeks Coccyx decubitus. Ankle ulceration Wound care nurse is following the patient for management Patient with specialty bed Mood disorder, depression Psychiatry evaluated patient and made recommendations Prozac 40 mg daily Seroquel 25 mg at bedtime Diabetes Glucose continues to be well controlled, Low-grade fever with tachycardia, possible early signs of infection, secondary to urinary tract infection and left basilar infiltrate. Resolved with treatment CBC unremarkable, BMP with mild azotemia Urine culture with pseudomonas aeruginosa, sensitive to Levaquin with STAR <2 Chest x-ray shows bibasilar patchy infiltrates Blood cultures are negative for 3 day Completed Levaquin 750 mg daily for 7 days Sepsis secondary to urinary tract infection, resolved Patient did have febrile illness, leukocytosis which have resolved Urine culture does indicate Pseudomonas, enterococcus faecalis Status post vancomycin/cefepime/Levaquin IV Status post Cipro 500 mg twice daily for total antibiotic treatment of 14 days DVT Prophylaxis: Lovenox, TEDs/SCDs. Medical records were reviewed. Awaiting case management for discharge planning No change in current treatment plan. Discharge Planning Case management for discharge planning, Ede Richardson Jun 16, 2017 08:03
[2017-06-16] MEDS: JUVEN POWDER 1 PACK G-TUBE SCH ×2 (09:00→20:23)
[2017-06-16] MEDS: LACTOBACILLUS ACIDOPHILUS TAB PEG SCH ×2 (09:43→20:23)
[2017-06-16] MEDS: NYSTATIN SUSP 500,000 U/5 ML CUP SWISH-SWAL SCH ×4 (09:43→20:23)
[2017-06-16] MEDS: predniSONE 20 MG TAB PEG SCH (09:44)
[2017-06-16] MEDS: LANSOPRAZOLE SOLUTAB 30 MG TAB PEG SCH ×2 (09:44→20:23)
[2017-06-16] MEDS: ENOXAPARIN SODIUM 40 MG/0.4 ML SYRINGE SQ SCH (09:44)
[2017-06-16] MEDS: SENNOSIDES SYRUP 8.8 MG/5 ML CUP PEG SCH (09:44)
[2017-06-16] MEDS: FLUoxetine HCL LIQUID 20 MG/5 ML CUP PEG SCH (09:44)
[2017-06-16 14:00] VITALS: O2SAT 94
[2017-06-16 20:00] VITALS: BP 123/87; PULSE 90; RESP 16; TEMP 96.1; O2SAT 95
[2017-06-16] MEDS: QUEtiapine FUMARATE 25 MG TAB PO SCH (20:23)
[2017-06-17] MEDS: azaTHIOprine 50 MG TAB PEG SCH ×2 (06:05→17:28)
[2017-06-17 08:00] VITALS: BP 96/70; PULSE 101; RESP 14; TEMP 97.8; O2SAT 96
[2017-06-17] MEDS: FLUoxetine HCL LIQUID 20 MG/5 ML CUP PEG SCH (08:00)
[2017-06-17] MEDS: ENOXAPARIN SODIUM 40 MG/0.4 ML SYRINGE SQ SCH (08:00)
[2017-06-17] MEDS: LACTOBACILLUS ACIDOPHILUS TAB PEG SCH ×2 (08:00→21:48)
[2017-06-17] MEDS: SENNOSIDES SYRUP 8.8 MG/5 ML CUP PEG SCH (08:00)
[2017-06-17] MEDS: LANSOPRAZOLE SOLUTAB 30 MG TAB PEG SCH ×2 (08:00→21:48)
[2017-06-17] MEDS: predniSONE 20 MG TAB PEG SCH (08:00)
[2017-06-17] MEDS: JUVEN POWDER 1 PACK G-TUBE SCH ×2 (08:01→21:00)
[2017-06-17] MEDS: NYSTATIN SUSP 500,000 U/5 ML CUP SWISH-SWAL SCH ×4 (09:00→21:48)
--- NOTE | 2017-06-17 09:50 | HHI.PR ---
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 Patient denies any new complaints today. No change in clinical status. Awaiting case management for discharge planning. Objective Vitals Vital Signs Date Time Temp Pulse Resp B/P (MAP) Pulse Ox O2 Delivery O2 Flow Rate FiO2 06/16/17 20:00 96.1 90 16 123/87 (99) 95 06/16/17 14:00 94 21 I/O 06/16/17 06/16/17 06/16/17 06/17/17 06/17/17 06/17/17 07:00 15:00 23:00 07:00 15:00 23:00 Intake Total 1200 ml 900 ml 1200 ml Output Total 400 ml 900 ml 350 ml Balance 800 ml 0 ml 850 ml Tube Feeding 800 ml 500 ml 600 ml Tube Irrigant 400 ml Other 400 ml 600 ml Output Urine Total 400 ml 900 ml 350 ml # Bowel Movements 1 1 Objective Remarks GENERAL: Well-developed, cachectic and contracted. HEENT: Head is normocephalic without any lesions or masses noted. Facial features are symmetric. Eyes: Extraocular muscles are intact. Conjunctivae were clear. NECK: Trachea midline no deviation. CARDIAC: Regular rhythm, tachycardia noted. S1/S2 are heard. No murmurs gallops or rubs. LUNGS: Clear to auscultation bilaterally. No wheeze, rhonchi or rales. No use of accessory muscles on inspiration or expiration. ABDOMEN: Soft, nontender. Nondistended. Bowel sounds heard in all 4 quadrants. No organomegaly or masses. Negative rebound, negative guarding. PEG tube noted without any excoriation. EXTREMITIES: No edema, pulses are equal bilaterally. No cyanosis or clubbing. Procedures 07/19/16 EGD with PEG tube placement 09/27/16 colonoscopy Urinary Catheter: Yes Assessment to: Continue Kowalski insert reason: Obstruction/Retention Date of Insertion: Jun 02, 2017 Vascular Central Line Catheter: No A/P Assessment and Plan Neuro-Behcet, history of frontal lobe CVA, encephalopathy, history of meningitis , Blurred vision/double vision, urinary retention, chronic No new changes on imaging. Patient was followed by neurology. Aphasic at baseline. Continue Imuran, prednisone EEG shows mild to moderate slowing at times of various depending on the epoch , there was no epileptic activity seen Continue PT/OT Palliative care still following the patient. 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 06/02/17 --Decreased oral intake and dysphagia on initial presentation Speech therapy evaluated patient. S/P barium swallow. Patient with severe dysphagia. GI was consulted and PEG tube was placed. Patient was intolerant to bolus feeding Dietary reconsulted and made recommendations Oral thrush Likely secondary to recent antibiotic use Continue nystatin for 2 weeks Coccyx decubitus. Ankle ulceration Wound care nurse is following the patient for management Patient with specialty bed Mood disorder, depression Psychiatry evaluated patient and made recommendations Prozac 40 mg daily Seroquel 25 mg at bedtime Diabetes Glucose continues to be well controlled, DVT Prophylaxis: Lovenox, TEDs/SCDs. Medical records were reviewed. No change in current treatment plan. Awaiting case management for discharge planning Discharge Planning Case management for discharge planning, Ede Richardson Jun 17, 2017 09:50
[2017-06-17 20:51] VITALS: BP 125/64; PULSE 75; RESP 18; TEMP 98.2; O2SAT 95
[2017-06-17] MEDS: QUEtiapine FUMARATE 25 MG TAB PO SCH (21:48)
[2017-06-18] MEDS: azaTHIOprine 50 MG TAB PEG SCH ×2 (06:05→17:51)
[2017-06-18 08:00] VITALS: BP 110/71; PULSE 84; RESP 22; TEMP 96.9; O2SAT 97
[2017-06-18] MEDS: NYSTATIN SUSP 500,000 U/5 ML CUP SWISH-SWAL SCH ×4 (08:26→22:21)
[2017-06-18] MEDS: JUVEN POWDER 1 PACK G-TUBE SCH ×2 (08:27→21:00)
[2017-06-18] MEDS: LANSOPRAZOLE SOLUTAB 30 MG TAB PEG SCH ×2 (08:28→22:21)
[2017-06-18] MEDS: SENNOSIDES SYRUP 8.8 MG/5 ML CUP PEG SCH (08:28)
[2017-06-18] MEDS: LACTOBACILLUS ACIDOPHILUS TAB PEG SCH ×2 (08:28→22:21)
[2017-06-18] MEDS: FLUoxetine HCL LIQUID 20 MG/5 ML CUP PEG SCH (08:28)
[2017-06-18] MEDS: predniSONE 20 MG TAB PEG SCH (08:29)
[2017-06-18] MEDS: ENOXAPARIN SODIUM 40 MG/0.4 ML SYRINGE SQ SCH (08:30)
--- NOTE | 2017-06-18 09:16 | HHI.PR ---
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 Patient lying in bed comfortable. Patient denies any new complaints. No change in clinical status. Awaiting case management for discharge planning Objective Vitals Vital Signs Date Time Temp Pulse Resp B/P (MAP) Pulse Ox O2 Delivery O2 Flow Rate FiO2 06/18/17 08:00 96.9 84 22 110/71 (84) 97 06/17/17 20:51 98.2 75 18 125/64 (84) 95 I/O 06/17/17 06/17/17 06/17/17 06/18/17 06/18/17 06/18/17 07:00 15:00 23:00 07:00 15:00 23:00 Intake Total 1200 ml 300 ml 850 ml Output Total 350 ml 400 ml Balance 850 ml -100 ml 850 ml Tube Feeding 600 ml 650 ml Other 600 ml 300 ml 200 ml Output Urine Total 350 ml 400 ml # Bowel Movements 1 1 Objective Remarks GENERAL: Well-developed, cachectic and contracted. HEENT: Head is normocephalic without any lesions or masses noted. Facial features are symmetric. Eyes: Extraocular muscles are intact. Conjunctivae were clear. NECK: Trachea midline no deviation. CARDIAC: Regular rhythm, tachycardia noted. S1/S2 are heard. No murmurs gallops or rubs. LUNGS: Clear to auscultation bilaterally. No wheeze, rhonchi or rales. No use of accessory muscles on inspiration or expiration. ABDOMEN: Soft, nontender. Nondistended. Bowel sounds heard in all 4 quadrants. No organomegaly or masses. Negative rebound, negative guarding. PEG tube noted without any excoriation. EXTREMITIES: No edema, pulses are equal bilaterally. No cyanosis or clubbing. Procedures 07/19/16 EGD with PEG tube placement 09/27/16 colonoscopy Urinary Catheter: Yes Assessment to: Continue Kowalski insert reason: Obstruction/Retention Date of Insertion: Jun 02, 2017 Vascular Central Line Catheter: No A/P Assessment and Plan Neuro-Behcet, history of frontal lobe CVA, encephalopathy, history of meningitis , Blurred vision/double vision, urinary retention, chronic No new changes on imaging. Patient was followed by neurology. Aphasic at baseline. Continue Imuran, prednisone EEG shows mild to moderate slowing at times of various depending on the epoch , there was no epileptic activity seen Continue PT/OT Palliative care still following the patient. 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 06/02/17 --Decreased oral intake and dysphagia on initial presentation Speech therapy evaluated patient. S/P barium swallow. Patient with severe dysphagia. GI was consulted and PEG tube was placed. Patient was intolerant to bolus feeding Dietary reconsulted and made recommendations Oral thrush Likely secondary to recent antibiotic use Continue nystatin for 2 weeks Coccyx decubitus. Ankle ulceration Wound care nurse is following the patient for management Patient with specialty bed Mood disorder, depression Psychiatry evaluated patient and made recommendations Prozac 40 mg daily Seroquel 25 mg at bedtime Diabetes Glucose continues to be well controlled, DVT Prophylaxis: Lovenox, TEDs/SCDs. Medical records were reviewed. Awaiting case management for discharge planning No change in current treatment plan. Discharge Planning Case management for discharge planning, Ede Richardson Jun 18, 2017 09:15
[2017-06-18 20:00] VITALS: BP 137/77; PULSE 104; RESP 20; TEMP 99; O2SAT 95
[2017-06-18] MEDS: QUEtiapine FUMARATE 25 MG TAB PO SCH (22:21)
[2017-06-19] MEDS: azaTHIOprine 50 MG TAB PEG SCH ×2 (06:01→17:26)
[2017-06-19 08:00] VITALS: BP 122/70; PULSE 80; RESP 18; TEMP 99; O2SAT 95
--- NOTE | 2017-06-19 08:02 | HHI.PR ---
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 Patient lying in bed comfortable. Patient denies any new complaints. No change in clinical status. Awaiting case management for discharge planning Objective Vitals Vital Signs Date Time Temp Pulse Resp B/P (MAP) Pulse Ox O2 Delivery O2 Flow Rate FiO2 06/18/17 20:00 99.0 104 20 137/77 (97) 95 I/O 06/18/17 06/18/17 06/18/17 06/19/17 06/19/17 06/19/17 07:00 15:00 23:00 07:00 15:00 23:00 Intake Total 850 ml 1150 ml Output Total 500 ml Balance 850 ml -500 ml 1150 ml Tube Feeding 650 ml 550 ml Other 200 ml 600 ml Output Urine Total 500 ml # Bowel Movements 1 Objective Remarks GENERAL: Well-developed, cachectic and contracted. HEENT: Head is normocephalic without any lesions or masses noted. Facial features are symmetric. Eyes: Extraocular muscles are intact. Conjunctivae were clear. NECK: Trachea midline no deviation. CARDIAC: Regular rhythm, tachycardia noted. S1/S2 are heard. No murmurs gallops or rubs. LUNGS: Clear to auscultation bilaterally. No wheeze, rhonchi or rales. No use of accessory muscles on inspiration or expiration. ABDOMEN: Soft, nontender. Nondistended. Bowel sounds heard in all 4 quadrants. No organomegaly or masses. Negative rebound, negative guarding. PEG tube noted without any excoriation. EXTREMITIES: No edema, pulses are equal bilaterally. No cyanosis or clubbing. Procedures 07/19/16 EGD with PEG tube placement 09/27/16 colonoscopy Urinary Catheter: Yes Assessment to: Continue Kowalski insert reason: Obstruction/Retention Date of Insertion: Jun 02, 2017 Vascular Central Line Catheter: No A/P Assessment and Plan Neuro-Behcet, history of frontal lobe CVA, encephalopathy, history of meningitis , Blurred vision/double vision, urinary retention, chronic No new changes on imaging. Patient was followed by neurology. Aphasic at baseline. Continue Imuran, prednisone EEG shows mild to moderate slowing at times of various depending on the epoch , there was no epileptic activity seen Continue PT/OT Palliative care still following the patient. 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 06/02/17 --Decreased oral intake and dysphagia on initial presentation Speech therapy evaluated patient. S/P barium swallow. Patient with severe dysphagia. GI was consulted and PEG tube was placed. Patient was intolerant to bolus feeding Dietary reconsulted and made recommendations Oral thrush Likely secondary to recent antibiotic use Continue nystatin for 2 weeks Coccyx decubitus. Ankle ulceration Wound care nurse is following the patient for management Patient with specialty bed Mood disorder, depression Psychiatry evaluated patient and made recommendations Prozac 40 mg daily Seroquel 25 mg at bedtime Diabetes Glucose continues to be well controlled, DVT Prophylaxis: Lovenox, TEDs/SCDs. Medical records were reviewed. No change in current treatment plan. Awaiting case management for discharge planning Discharge Planning Case management for discharge planning, Ede Richardson Jun 19, 2017 08:02
[2017-06-19] MEDS: JUVEN POWDER 1 PACK G-TUBE SCH ×2 (09:00→21:30)
[2017-06-19] MEDS: SENNOSIDES SYRUP 8.8 MG/5 ML CUP PEG SCH (12:09)
[2017-06-19] MEDS: ENOXAPARIN SODIUM 40 MG/0.4 ML SYRINGE SQ SCH (12:09)
[2017-06-19] MEDS: NYSTATIN SUSP 500,000 U/5 ML CUP SWISH-SWAL SCH ×4 (12:09→21:30)
[2017-06-19] MEDS: predniSONE 20 MG TAB PEG SCH (12:09)
[2017-06-19] MEDS: FLUoxetine HCL LIQUID 20 MG/5 ML CUP PEG SCH (12:09)
[2017-06-19] MEDS: LANSOPRAZOLE SOLUTAB 30 MG TAB PEG SCH ×2 (12:09→21:30)
[2017-06-19] MEDS: LACTOBACILLUS ACIDOPHILUS TAB PEG SCH ×2 (12:10→21:30)
[2017-06-19 16:00] VITALS: BP 129/83; PULSE 95; RESP 12; TEMP 97.7; O2SAT 94
[2017-06-19 19:15] VITALS: BP 123/80; PULSE 93; RESP 20; TEMP 96; O2SAT 97
[2017-06-19] MEDS: QUEtiapine FUMARATE 25 MG TAB PO SCH (21:30)
[2017-06-20] MEDS: azaTHIOprine 50 MG TAB PEG SCH ×2 (06:00→18:24)
[2017-06-20 08:00] VITALS: BP 139/81; PULSE 90; RESP 20; TEMP 97.3; O2SAT 97
--- NOTE | 2017-06-20 09:10 | HHI.PR ---
Subjective Remarks Follow up Neuro Bechets syndrome. Patient seen and examined, lying in bed awake and alert. Responsive to voice and questions, nodding appropriately. Denies any pain or discomfort. Denies any new acute changes or complaints. VSS. Afebrile. Objective Vitals Vital Signs Date Time Temp Pulse Resp B/P (MAP) Pulse Ox O2 Delivery O2 Flow Rate FiO2 06/20/17 08:00 97.3 90 20 139/81 (100) 97 06/19/17 19:15 96.0 93 20 123/80 (94) 97 06/19/17 16:00 97.7 95 12 129/83 (98) 94 I/O 06/19/17 06/19/17 06/19/17 06/20/17 06/20/17 06/20/17 06:59 14:59 22:59 06:59 14:59 22:59 Intake Total 1150 ml 1340 ml 1200 ml Output Total 601 ml Balance 1150 ml 739 ml 1200 ml Tube Feeding 550 ml 600 ml 800 ml Tube Irrigant 100 ml Other 600 ml 640 ml 400 ml Output Urine Total 600 ml Stool Total 1 ml Imaging Last Impressions Chest X-Ray 06/01/17 1118 Signed Impressions: Service Date/Time: May 11:33 - CONCLUSION: Bibasilar patchy infiltrates. Gen Potter MD Hip Aspiration/Injection 10/08/16 0000 Signed Impressions: Service Date/Time: Tuesday, October 11, 2016 13:41 - CONCLUSION: Uncomplicated aspiration as above. Minimal fluid on the right. No identifiable fluid on the left Clayton Max MD Lower Extremity Ultrasound 10/06/16 0000 Signed Impressions: Service Date/Time: September 17:29 - CONCLUSION: Normal examination. Josafat Meyer MD CT Angiography 10/06/16 0000 Signed Impressions: Service Date/Time: September 20:31 - CONCLUSION: Minimal right upper lobe infiltrate and basilar atelectasis. No evidence of pulmonary embolism.. Josafat Meyer MD Abdomen/Pelvis CT 10/06/16 0000 Signed Impressions: Service Date/Time: September 20:31 - CONCLUSION: No evidence of pelvic abscess. Josafat Meyer MD Upper Extremity Ultrasound 09/28/16 Signed Impressions: Service Date/Time: Wednesday, September 28, 2016 19:15 - CONCLUSION: 1. Occlusive superficial thrombosis in the left cephalic vein near the antecubital fossa. No deep venous thrombosis. Sumit Bourgeois MD Renal Ultrasound 08/28/16 Signed Impressions: Service Date/Time: Sunday, August 28, 2016 20:03 - CONCLUSION: Mild increased echotexture of both kidneys. Baldev Vu MD Lumbar Puncture Fluoroscopy 08/17/16 Signed Impressions: Service Date/Time: Wednesday, August 17, 2016 12:26 - CONCLUSION: Uncomplicated fluoroscopically guided lumbar puncture. Vishal Beckford Jr., MD Brain MRI 08/17/16 Signed Impressions: Service Date/Time: Wednesday, August 17, 2016 13:28 - CONCLUSION: Remote long-standing areas of abnormality in the brainstem and middle cerebellar peduncle consistent with remote infarcts or contusion. No acute intracranial abnormality. Chacho Bright MD Abdomen X-Ray 08/17/16 Signed Impressions: Service Date/Time: Wednesday, August 17, 2016 13:02 - CONCLUSION: No evidence of obstruction. No MRI incompatible foreign body is identified. Chacho Bright MD Head CT 08/16/16 Signed Impressions: Service Date/Time: Tuesday, August 16, 2016 09:55 - CONCLUSION: Chronic ischemic changes left frontal lobe possibly from evidence of previous ventriculostomy placement, unchanged. No acute intracranial abnormality. Gen Potter MD Modified Barium Swallow 08/15/16 Signed Impressions: Service Date/Time: Monday, August 15, 2016 00:00 - CONCLUSION: See report above and speech pathology report Chacho Bright MD Objective Remarks GENERAL: Well-developed cachectic and contracted male patient in NAD. Awake and alert. Nodding appropriately. SKIN: Warm and dry. No rash. HEENT: Normocephalic. Atraumatic. Pupils equal and round. No scleral icterus. No injection or drainage. No nasal bleeding or discharge. Mucous membranes pink and moist. NECK: Supple. Trachea midline. CARDIOVASCULAR: Regular rate and rhythm. S1, S2 noted. No murmur appreciated. RESPIRATORY: No accessory muscle use. Course and rhonchi throughout lung lawson. Breath sounds equal bilaterally. GASTROINTESTINAL: Abdomen soft, non-tender, nondistended. Normoactive bowel sounds x4. No guarding. PEG tube noted, no erythema or drainage from site, c/d/ i. MUSCULOSKELETAL: No obvious deformities. Extremities without clubbing, cyanosis , or edema. 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 (2) Hospital acquired PNA ICD Code: J18.9 - Pneumonia, unspecified organism Status: Resolved (3) Sepsis ICD Code: A41.9 - Sepsis, unspecified organism Status: Resolved (4) Encephalopathy ICD Code: G93.40 - Encephalopathy, unspecified Status: Resolved (5) GI bleed ICD Code: K92.2 - Gastrointestinal hemorrhage, unspecified Status: Resolved (6) HCAP (healthcare-associated pneumonia) ICD Code: J18.9 - Pneumonia, unspecified organism Status: Resolved (7) UTI (urinary tract infection) ICD Code: N39.0 - Urinary tract infection, site not specified Status: Resolved (8) Leucocytosis ICD Code: D72.829 - Elevated white blood cell count, unspecified Status: Resolved (9) Fever ICD Code: R50.9 - Fever, unspecified Status: Resolved (10) Effusion of hip joint ICD Code: M25.459 - Effusion, unspecified hip Status: Acute (11) 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 Patient was followed by neurology. Aphasic at baseline. Continue Imuran, prednisone EEG shows mild to moderate slowing at times of various depending on the epoch , there was no epileptic activity seen Continue PT/OT Palliative care still following the patient. 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 Last changed 06/02/17. --Decreased oral intake and dysphagia on initial presentation Speech therapy evaluated patient. S/P barium swallow. Patient with severe dysphagia. GI was consulted and PEG tube was placed. Patient was intolerant to bolus feeding Dietary reconsulted and made recommendations Oral thrush Likely secondary to recent antibiotic use Continue nystatin for 2 weeks Coccyx decubitus. Ankle ulceration Wound care nurse is following the patient for management Patient with specialty bed Mood disorder, depression Psychiatry evaluated patient and made recommendations Prozac 40 mg daily Seroquel 25 mg at bedtime Diabetes Glucose well controlled DVT Prophylaxis: Lovenox, TEDs/SCDs. Medical records were reviewed. No change in current treatment plan. Awaiting case management for discharge planning Discharge Planning Case management assisting. Problem Qualifiers (1) GI bleed: (2) UTI (urinary tract infection): (3) Effusion of hip joint: Dotty Pacheco Jun 20, 2017 09:10
[2017-06-20] MEDS: ENOXAPARIN SODIUM 40 MG/0.4 ML SYRINGE SQ SCH (11:20)
[2017-06-20] MEDS: NYSTATIN SUSP 500,000 U/5 ML CUP SWISH-SWAL SCH ×4 (11:20→22:11)
[2017-06-20] MEDS: SENNOSIDES SYRUP 8.8 MG/5 ML CUP PEG SCH (11:21)
[2017-06-20] MEDS: FLUoxetine HCL LIQUID 20 MG/5 ML CUP PEG SCH (11:21)
[2017-06-20] MEDS: predniSONE 20 MG TAB PEG SCH (11:21)
[2017-06-20] MEDS: LACTOBACILLUS ACIDOPHILUS TAB PEG SCH ×2 (11:22→22:11)
[2017-06-20] MEDS: LANSOPRAZOLE SOLUTAB 30 MG TAB PEG SCH ×2 (11:23→22:11)
[2017-06-20] MEDS: JUVEN POWDER 1 PACK G-TUBE SCH ×2 (11:24→22:12)
[2017-06-20 20:00] VITALS: BP 120/79; PULSE 86; RESP 18; TEMP 98; O2SAT 94
[2017-06-20] MEDS: QUEtiapine FUMARATE 25 MG TAB PO SCH (22:11)
[2017-06-21] MEDS: azaTHIOprine 50 MG TAB PEG SCH ×2 (05:22→17:21)
[2017-06-21 08:00] VITALS: BP 128/68; PULSE 70; RESP 18; TEMP 97.8; O2SAT 95
[2017-06-21] MEDS: JUVEN POWDER 1 PACK G-TUBE SCH ×2 (09:00→21:00)
--- NOTE | 2017-06-21 09:37 | HHI.PR ---
Subjective Remarks Follow up Neuro Bechets syndrome. Patient seen and examined, lying in bed awake. Nodding appropriately. No new change in clinical condition. Denies any pain. Tolerating TF. No new reports of acute change overnight. Objective Vitals Vital Signs Date Time Temp Pulse Resp B/P (MAP) Pulse Ox O2 Delivery O2 Flow Rate FiO2 06/21/17 08:00 97.8 70 18 128/68 (88) 95 06/20/17 20:00 98.0 86 18 120/79 (93) 94 I/O 06/20/17 06/20/17 06/20/17 06/21/17 06/21/17 06/21/17 07:00 15:00 23:00 07:00 15:00 23:00 Intake Total 1200 ml 1375 ml 0 ml Output Total 200 ml 650 ml Balance 1200 ml -200 ml 1375 ml -650 ml Intake Oral 0 ml Tube Feeding 800 ml 625 ml Other 400 ml 750 ml Output Urine Total 200 ml 650 ml Imaging Last Impressions Chest X-Ray 06/01/17 1118 Signed Impressions: Service Date/Time: May 11:33 - CONCLUSION: Bibasilar patchy infiltrates. Gen Potter MD Hip Aspiration/Injection 10/08/16 0000 Signed Impressions: Service Date/Time: Tuesday, October 11, 2016 13:41 - CONCLUSION: Uncomplicated aspiration as above. Minimal fluid on the right. No identifiable fluid on the left Clayton Max MD Lower Extremity Ultrasound 10/06/16 0000 Signed Impressions: Service Date/Time: September 17:29 - CONCLUSION: Normal examination. Josafat Meyer MD CT Angiography 10/06/16 0000 Signed Impressions: Service Date/Time: September 20:31 - CONCLUSION: Minimal right upper lobe infiltrate and basilar atelectasis. No evidence of pulmonary embolism.. Josafat Meyer MD Abdomen/Pelvis CT 10/06/16 0000 Signed Impressions: Service Date/Time: September 20:31 - CONCLUSION: No evidence of pelvic abscess. Josafat Meyer MD Upper Extremity Ultrasound 09/28/16 0000 Signed Impressions: Service Date/Time: Wednesday, September 28, 2016 19:15 - CONCLUSION: 1. Occlusive superficial thrombosis in the left cephalic vein near the antecubital fossa. No deep venous thrombosis. Sumit Bourgeois MD Renal Ultrasound 08/28/16 Signed Impressions: Service Date/Time: Sunday, August 28, 2016 20:03 - CONCLUSION: Mild increased echotexture of both kidneys. Baldev Vu MD Lumbar Puncture Fluoroscopy 08/17/16 0000 Signed Impressions: Service Date/Time: Wednesday, August 17, 2016 12:26 - CONCLUSION: Uncomplicated fluoroscopically guided lumbar puncture. Vishal Beckford Jr., MD Brain MRI 08/17/16 Signed Impressions: Service Date/Time: Wednesday, August 17, 2016 13:28 - CONCLUSION: Remote long-standing areas of abnormality in the brainstem and middle cerebellar peduncle consistent with remote infarcts or contusion. No acute intracranial abnormality. Chacho Bright MD Abdomen X-Ray 08/17/16 Signed Impressions: Service Date/Time: Wednesday, August 17, 2016 13:02 - CONCLUSION: No evidence of obstruction. No MRI incompatible foreign body is identified. Chacho Bright MD Head CT 08/16/16 Signed Impressions: Service Date/Time: Tuesday, August 16, 2016 09:55 - CONCLUSION: Chronic ischemic changes left frontal lobe possibly from evidence of previous ventriculostomy placement, unchanged. No acute intracranial abnormality. Gen Potter MD Modified Barium Swallow 08/15/16 0000 Signed Impressions: Service Date/Time: Monday, August 15, 2016 00:00 - CONCLUSION: See report above and speech pathology report Chacho Bright MD Objective Remarks GENERAL: Well-developed cachectic and contracted male patient in NAD. Awake and alert. Nodding appropriately. SKIN: Warm and dry. No rash. HEENT: Normocephalic. Atraumatic. Pupils equal and round. No scleral icterus. No injection or drainage. No nasal bleeding or discharge. Mucous membranes pink and moist. NECK: Supple. Trachea midline. CARDIOVASCULAR: Regular rate and rhythm. S1, S2 noted. No murmur appreciated. RESPIRATORY: No accessory muscle use. Course and rhonchi throughout lung [place]. Breath sounds equal bilaterally. GASTROINTESTINAL: Abdomen soft, non-tender, nondistended. Normoactive bowel sounds x4. No guarding. PEG tube noted, no erythema or drainage from site, c/d/ i. MUSCULOSKELETAL: No obvious deformities. Extremities without clubbing, cyanosis , or edema. 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 (2) Hospital acquired PNA ICD Code: J18.9 - Pneumonia, unspecified organism Status: Resolved (3) Sepsis ICD Code: A41.9 - Sepsis, unspecified organism Status: Resolved (4) Encephalopathy ICD Code: G93.40 - Encephalopathy, unspecified Status: Resolved (5) GI bleed ICD Code: K92.2 - Gastrointestinal hemorrhage, unspecified Status: Resolved (6) HCAP (healthcare-associated pneumonia) ICD Code: J18.9 - Pneumonia, unspecified organism Status: Resolved (7) UTI (urinary tract infection) ICD Code: N39.0 - Urinary tract infection, site not specified Status: Resolved (8) Leucocytosis ICD Code: D72.829 - Elevated white blood cell count, unspecified Status: Resolved (9) Fever ICD Code: R50.9 - Fever, unspecified Status: Resolved (10) Effusion of hip joint ICD Code: M25.459 - Effusion, unspecified hip Status: Acute (11) 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 Patient was followed by neurology. Aphasic at baseline. Continue Imuran, prednisone EEG shows mild to moderate slowing at times of various depending on the epoch , there was no epileptic activity seen Continue PT/OT Palliative care still following the patient. 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 Last changed 06/02/17. --Decreased oral intake and dysphagia on initial presentation Speech therapy evaluated patient. S/P barium swallow. Patient with severe dysphagia. GI was consulted and PEG tube was placed. Patient was intolerant to bolus feeding Dietary reconsulted and made recommendations Oral thrush Likely secondary to recent antibiotic use Continue nystatin for 2 weeks Coccyx decubitus. Ankle ulceration Wound care nurse is following the patient for management Patient with specialty bed Mood disorder, depression Psychiatry evaluated patient and made recommendations Prozac 40 mg daily Seroquel 25 mg at bedtime Diabetes Glucose well controlled DVT Prophylaxis: Lovenox, TEDs/SCDs. Medical records were reviewed. No change in current treatment plan. Awaiting case management for discharge planning Discharge Planning Case management assisting. Problem Qualifiers (1) GI bleed: (2) UTI (urinary tract infection): (3) Effusion of hip joint: Dotty Pacheco Jun 21, 2017 09:37
[2017-06-21] MEDS: ENOXAPARIN SODIUM 40 MG/0.4 ML SYRINGE SQ SCH (09:42)
[2017-06-21] MEDS: FLUoxetine HCL LIQUID 20 MG/5 ML CUP PEG SCH (09:42)
[2017-06-21] MEDS: LANSOPRAZOLE SOLUTAB 30 MG TAB PEG SCH ×2 (09:42→22:31)
[2017-06-21] MEDS: predniSONE 20 MG TAB PEG SCH (09:42)
[2017-06-21] MEDS: LACTOBACILLUS ACIDOPHILUS TAB PEG SCH ×2 (09:42→22:31)
[2017-06-21] MEDS: SENNOSIDES SYRUP 8.8 MG/5 ML CUP PEG SCH (09:42)
[2017-06-21] MEDS: NYSTATIN SUSP 500,000 U/5 ML CUP SWISH-SWAL SCH (09:42)
[2017-06-21 20:00] VITALS: BP 122/76; PULSE 77; RESP 17; TEMP 98; O2SAT 98
[2017-06-21] MEDS: QUEtiapine FUMARATE 25 MG TAB PO SCH (22:31)
[2017-06-22] MEDS: azaTHIOprine 50 MG TAB PEG SCH ×2 (06:07→17:21)
[2017-06-22 08:12] VITALS: BP 105/75; PULSE 78; RESP 18; TEMP 96.2; O2SAT 97
[2017-06-22] MEDS: JUVEN POWDER 1 PACK G-TUBE SCH ×2 (09:00→22:27)
[2017-06-22] MEDS: ENOXAPARIN SODIUM 40 MG/0.4 ML SYRINGE SQ SCH (12:04)
[2017-06-22] MEDS: predniSONE 20 MG TAB PEG SCH (12:05)
[2017-06-22] MEDS: LANSOPRAZOLE SOLUTAB 30 MG TAB PEG SCH ×2 (12:05→22:27)
[2017-06-22] MEDS: FLUoxetine HCL LIQUID 20 MG/5 ML CUP PEG SCH (12:05)
[2017-06-22] MEDS: SENNOSIDES SYRUP 8.8 MG/5 ML CUP PEG SCH (12:05)
[2017-06-22] MEDS: LACTOBACILLUS ACIDOPHILUS TAB PEG SCH ×2 (12:05→22:27)
--- NOTE | 2017-06-22 17:12 | HHI.PR ---
Subjective Remarks Follow up Neuro Bechets syndrome. Patient seen and examined, lying in bed awake. No change in clinical condition. No reports of any acute events overnight. Objective Vitals Vital Signs Date Time Temp Pulse Resp B/P (MAP) Pulse Ox O2 Delivery O2 Flow Rate FiO2 06/22/17 08:12 96.2 78 18 105/75 (85) 97 06/21/17 20:00 98.0 77 17 122/76 (91) 98 I/O 06/21/17 06/21/17 06/21/17 06/22/17 06/22/17 06/22/17 06:59 14:59 22:59 06:59 14:59 22:59 Intake Total 0 ml Output Total 650 ml 800 ml Balance -650 ml -800 ml Intake Oral 0 ml Output Urine Total 650 ml 800 ml # Bowel Movements 2 Imaging Last Impressions Chest X-Ray 06/01/17 1118 Signed Impressions: Service Date/Time: May 11:33 - CONCLUSION: Bibasilar patchy infiltrates. Gen Potter MD Hip Aspiration/Injection 10/08/16 0000 Signed Impressions: Service Date/Time: Tuesday, October 11, 2016 13:41 - CONCLUSION: Uncomplicated aspiration as above. Minimal fluid on the right. No identifiable fluid on the left Clayton Max MD Lower Extremity Ultrasound 10/06/16 0000 Signed Impressions: Service Date/Time: September 17:29 - CONCLUSION: Normal examination. Josaaft Meyer MD CT Angiography 10/06/16 0000 Signed Impressions: Service Date/Time: September 20:31 - CONCLUSION: Minimal right upper lobe infiltrate and basilar atelectasis. No evidence of pulmonary embolism.. Josafat Meyer MD Abdomen/Pelvis CT 10/06/16 0000 Signed Impressions: Service Date/Time: September 20:31 - CONCLUSION: No evidence of pelvic abscess. Josafat Meyer MD Upper Extremity Ultrasound 09/28/16 0000 Signed Impressions: Service Date/Time: Wednesday, September 28, 2016 19:15 - CONCLUSION: 1. Occlusive superficial thrombosis in the left cephalic vein near the antecubital fossa. No deep venous thrombosis. Sumit Bourgeois MD Renal Ultrasound 3/5/17 0000 Signed Impressions: Service Date/Time: Sunday, August 28, 2016 20:03 - CONCLUSION: Mild increased echotexture of both kidneys. Baldev Vu MD Lumbar Puncture Fluoroscopy 08/17/16 0000 Signed Impressions: Service Date/Time: Wednesday, August 17, 2016 12:26 - CONCLUSION: Uncomplicated fluoroscopically guided lumbar puncture. Vishal Beckford Jr., MD Brain MRI 08/17/16 0000 Signed Impressions: Service Date/Time: Wednesday, August 17, 2016 13:28 - CONCLUSION: Remote long-standing areas of abnormality in the brainstem and middle cerebellar peduncle consistent with remote infarcts or contusion. No acute intracranial abnormality. Chacho Bright MD Abdomen X-Ray 08/17/16 Signed Impressions: Service Date/Time: Wednesday, August 17, 2016 13:02 - CONCLUSION: No evidence of obstruction. No MRI incompatible foreign body is identified. Chacho Bright MD Head CT 08/16/16 Signed Impressions: Service Date/Time: Tuesday, August 16, 2016 09:55 - CONCLUSION: Chronic ischemic changes left frontal lobe possibly from evidence of previous ventriculostomy placement, unchanged. No acute intracranial abnormality. Gen Potter MD Modified Barium Swallow 08/15/16 0000 Signed Impressions: Service Date/Time: Monday, August 15, 2016 00:00 - CONCLUSION: See report above and speech pathology report Chacho Brihgt MD Objective Remarks GENERAL: Well-developed cachectic and contracted male patient in NAD. Awake and alert. Nodding appropriately. SKIN: Warm and dry. No rash. HEENT: Normocephalic. Atraumatic. Pupils equal and round. No scleral icterus. No injection or drainage. No nasal bleeding or discharge. Mucous membranes pink and moist. NECK: Supple. Trachea midline. CARDIOVASCULAR: Regular rate and rhythm. S1, S2 noted. No murmur appreciated. RESPIRATORY: No accessory muscle use. Course and rhonchi throughout lung [place]son. Breath sounds equal bilaterally. GASTROINTESTINAL: Abdomen soft, non-tender, nondistended. Normoactive bowel sounds x4. No guarding. PEG tube noted, no erythema or drainage from site, c/d/ i. MUSCULOSKELETAL: No obvious deformities. Extremities without clubbing, cyanosis , or edema. 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 (2) Hospital acquired PNA ICD Code: J18.9 - Pneumonia, unspecified organism Status: Resolved (3) Sepsis ICD Code: A41.9 - Sepsis, unspecified organism Status: Resolved (4) Encephalopathy ICD Code: G93.40 - Encephalopathy, unspecified Status: Resolved (5) GI bleed ICD Code: K92.2 - Gastrointestinal hemorrhage, unspecified Status: Resolved (6) HCAP (healthcare-associated pneumonia) ICD Code: J18.9 - Pneumonia, unspecified organism Status: Resolved (7) UTI (urinary tract infection) ICD Code: N39.0 - Urinary tract infection, site not specified Status: Resolved (8) Leucocytosis ICD Code: D72.829 - Elevated white blood cell count, unspecified Status: Resolved (9) Fever ICD Code: R50.9 - Fever, unspecified Status: Resolved (10) Effusion of hip joint ICD Code: M25.459 - Effusion, unspecified hip Status: Acute (11) 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 Patient was followed by neurology. Aphasic at baseline. Continue Imuran, prednisone EEG shows mild to moderate slowing at times of various depending on the epoch , there was no epileptic activity seen Continue PT/OT Palliative care still following the patient. 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 Last changed 06/02/17. --Decreased oral intake and dysphagia on initial presentation Speech therapy evaluated patient. S/P barium swallow. Patient with severe dysphagia. GI was consulted and PEG tube was placed. Patient was intolerant to bolus feeding Dietary reconsulted and made recommendations Oral thrush, improved. Likely secondary to recent antibiotic use Status post nystatin Coccyx decubitus. Ankle ulceration Wound care nurse is following the patient for management Patient with specialty bed Mood disorder, depression Psychiatry evaluated patient and made recommendations Prozac 40 mg daily Seroquel 25 mg at bedtime Diabetes Glucose well controlled DVT Prophylaxis: Lovenox, TEDs/SCDs. Medical records were reviewed. No change in current treatment plan. Awaiting case management for discharge planning Discharge Planning Case management assisting. Problem Qualifiers (1) GI bleed: (2) UTI (urinary tract infection): (3) Effusion of hip joint: Dotty Pacheco Jun 22, 2017 17:12
[2017-06-22 20:00] VITALS: BP 122/78; PULSE 78; RESP 18; TEMP 97.8; O2SAT 99
[2017-06-22] MEDS: QUEtiapine FUMARATE 25 MG TAB PO SCH (22:27)
[2017-06-23] MEDS: azaTHIOprine 50 MG TAB PEG SCH ×2 (06:19→17:38)
[2017-06-23 08:00] VITALS: BP 111/67; PULSE 85; RESP 22; TEMP 97.2; O2SAT 94
[2017-06-23] MEDS: JUVEN POWDER 1 PACK G-TUBE SCH ×2 (09:00→21:27)
[2017-06-23] MEDS: ENOXAPARIN SODIUM 40 MG/0.4 ML SYRINGE SQ SCH (09:09)
[2017-06-23] MEDS: LANSOPRAZOLE SOLUTAB 30 MG TAB PEG SCH ×2 (09:09→21:27)
[2017-06-23] MEDS: LACTOBACILLUS ACIDOPHILUS TAB PEG SCH ×2 (09:10→21:27)
[2017-06-23] MEDS: SENNOSIDES SYRUP 8.8 MG/5 ML CUP PEG SCH (09:10)
[2017-06-23] MEDS: predniSONE 20 MG TAB PEG SCH (09:10)
[2017-06-23] MEDS: FLUoxetine HCL LIQUID 20 MG/5 ML CUP PEG SCH (09:12)
--- NOTE | 2017-06-23 10:13 | HHI.PR ---
Subjective Remarks Follow up Neuro Bechets syndrome. Patient seen and examined, lying in bed comfortably. Denies any pain or discomfort. No reports of any acute events overnight. Objective Vitals Vital Signs Date Time Temp Pulse Resp B/P (MAP) Pulse Ox O2 Delivery O2 Flow Rate FiO2 06/23/17 08:00 97.2 85 22 111/67 (82) 94 06/22/17 20:00 97.8 78 18 122/78 (93) 99 I/O 06/22/17 06/22/17 06/22/17 06/23/17 06/23/17 06/23/17 07:00 15:00 23:00 07:00 15:00 23:00 Output Total 800 ml 500 ml 450 ml Balance -800 ml -500 ml -450 ml Output Urine Total 800 ml 500 ml 450 ml # Voids 3 # Bowel Movements 2 1 2 Imaging Last Impressions Chest X-Ray 06/01/17 1118 Signed Impressions: Service Date/Time: May 11:33 - CONCLUSION: Bibasilar patchy infiltrates. Gen Potter MD Hip Aspiration/Injection 10/08/16 0000 Signed Impressions: Service Date/Time: Tuesday, October 11, 2016 13:41 - CONCLUSION: Uncomplicated aspiration as above. Minimal fluid on the right. No identifiable fluid on the left Clayton Max MD Lower Extremity Ultrasound 10/06/16 0000 Signed Impressions: Service Date/Time: September 17:29 - CONCLUSION: Normal examination. Josafat Meyer MD CT Angiography 10/06/16 0000 Signed Impressions: Service Date/Time: September 20:31 - CONCLUSION: Minimal right upper lobe infiltrate and basilar atelectasis. No evidence of pulmonary embolism.. Josafat Meyer MD Abdomen/Pelvis CT 10/06/16 0000 Signed Impressions: Service Date/Time: September 20:31 - CONCLUSION: No evidence of pelvic abscess. Josafat Meyer MD Upper Extremity Ultrasound 09/28/16 0000 Signed Impressions: Service Date/Time: Wednesday, September 28, 2016 19:15 - CONCLUSION: 1. Occlusive superficial thrombosis in the left cephalic vein near the antecubital fossa. No deep venous thrombosis. Sumit Bourgeois MD Renal Ultrasound 08/28/16 0000 Signed Impressions: Service Date/Time: Sunday, August 28, 2016 20:03 - CONCLUSION: Mild increased echotexture of both kidneys. Baldev Vu MD Lumbar Puncture Fluoroscopy 08/17/16 0000 Signed Impressions: Service Date/Time: Wednesday, August 17, 2016 12:26 - CONCLUSION: Uncomplicated fluoroscopically guided lumbar puncture. Vishal Beckford Jr., MD Brain MRI 08/17/16 0000 Signed Impressions: Service Date/Time: Wednesday, August 17, 2016 13:28 - CONCLUSION: Remote long-standing areas of abnormality in the brainstem and middle cerebellar peduncle consistent with remote infarcts or contusion. No acute intracranial abnormality. Chacho Bright MD Abdomen X-Ray 08/17/16 0000 Signed Impressions: Service Date/Time: Wednesday, August 17, 2016 13:02 - CONCLUSION: No evidence of obstruction. No MRI incompatible foreign body is identified. Chacho Bright MD Head CT 08/16/16 0000 Signed Impressions: Service Date/Time: Tuesday, August 16, 2016 09:55 - CONCLUSION: Chronic ischemic changes left frontal lobe possibly from evidence of previous ventriculostomy placement, unchanged. No acute intracranial abnormality. Gen Potter MD Modified Barium Swallow 08/15/16 0000 Signed Impressions: Service Date/Time: Monday, August 15, 2016 00:00 - CONCLUSION: See report above and speech pathology report Chacho Bright MD Objective Remarks GENERAL: Well-developed cachectic and contracted male patient in NAD. Awake and alert. Nodding appropriately. SKIN: Warm and dry. No rash. HEENT: Normocephalic. Atraumatic. Pupils equal and round. No scleral icterus. No injection or drainage. No nasal bleeding or discharge. Mucous membranes pink and moist. NECK: Supple. Trachea midline. CARDIOVASCULAR: Regular rate and rhythm. S1, S2 noted. No murmur appreciated. RESPIRATORY: No accessory muscle use. Course and rhonchi throughout lung [place]. Breath sounds equal bilaterally. GASTROINTESTINAL: Abdomen soft, non-tender, nondistended. Normoactive bowel sounds x4. No guarding. PEG tube noted, no erythema or drainage from site, c/d/ i. MUSCULOSKELETAL: No obvious deformities. Extremities without clubbing, cyanosis , or edema. 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 (2) Hospital acquired PNA ICD Code: J18.9 - Pneumonia, unspecified organism Status: Resolved (3) Sepsis ICD Code: A41.9 - Sepsis, unspecified organism Status: Resolved (4) Encephalopathy ICD Code: G93.40 - Encephalopathy, unspecified Status: Resolved (5) GI bleed ICD Code: K92.2 - Gastrointestinal hemorrhage, unspecified Status: Resolved (6) HCAP (healthcare-associated pneumonia) ICD Code: J18.9 - Pneumonia, unspecified organism Status: Resolved (7) UTI (urinary tract infection) ICD Code: N39.0 - Urinary tract infection, site not specified Status: Resolved (8) Leucocytosis ICD Code: D72.829 - Elevated white blood cell count, unspecified Status: Resolved (9) Fever ICD Code: R50.9 - Fever, unspecified Status: Resolved (10) Effusion of hip joint ICD Code: M25.459 - Effusion, unspecified hip Status: Acute (11) 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 Patient was followed by neurology. Aphasic at baseline. Continue Imuran, prednisone EEG shows mild to moderate slowing at times of various depending on the epoch , there was no epileptic activity seen Continue PT/OT Palliative care still following the patient. 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 Last changed 06/02/17. --Decreased oral intake and dysphagia on initial presentation Speech therapy evaluated patient. S/P barium swallow. Patient with severe dysphagia. GI was consulted and PEG tube was placed. Patient was intolerant to bolus feeding Dietary reconsulted and made recommendations Oral thrush, improved. Likely secondary to recent antibiotic use Status post nystatin Coccyx decubitus. Ankle ulceration Wound care nurse is following the patient for management Patient with specialty bed Mood disorder, depression Psychiatry evaluated patient and made recommendations Prozac 40 mg daily Seroquel 25 mg at bedtime Diabetes Glucose well controlled DVT Prophylaxis: Lovenox, TEDs/SCDs. Medical records were reviewed. No change in current treatment plan. Awaiting case management for discharge planning Discharge Planning Case management assisting. Problem Qualifiers (1) GI bleed: (2) UTI (urinary tract infection): (3) Effusion of hip joint: Dotty Pacheco Jun 23, 2017 10:13
[2017-06-23] MEDS: QUEtiapine FUMARATE 25 MG TAB PO SCH (21:27)
[2017-06-23 21:46] VITALS: BP 120/72; PULSE 73; RESP 16; TEMP 98.3; O2SAT 93
[2017-06-24] MEDS: azaTHIOprine 50 MG TAB PEG SCH ×2 (05:21→17:34)
[2017-06-24 08:00] VITALS: BP 108/54; PULSE 76; RESP 18; TEMP 97.4; O2SAT 96
[2017-06-24] MEDS: JUVEN POWDER 1 PACK G-TUBE SCH ×2 (09:00→21:00)
[2017-06-24] MEDS: LACTOBACILLUS ACIDOPHILUS TAB PEG SCH ×2 (09:12→23:23)
[2017-06-24] MEDS: FLUoxetine HCL LIQUID 20 MG/5 ML CUP PEG SCH (09:12)
[2017-06-24] MEDS: ENOXAPARIN SODIUM 40 MG/0.4 ML SYRINGE SQ SCH (09:12)
[2017-06-24] MEDS: predniSONE 20 MG TAB PEG SCH (09:13)
[2017-06-24] MEDS: LANSOPRAZOLE SOLUTAB 30 MG TAB PEG SCH ×2 (09:13→23:23)
[2017-06-24] MEDS: SENNOSIDES SYRUP 8.8 MG/5 ML CUP PEG SCH (09:13)
--- NOTE | 2017-06-24 17:15 | HHI.PR ---
Subjective Remarks Follow up Neuro Bechets syndrome. Patient seen and examined, lying in bed sleeping. Nodding appropriately. Denies any pain or change in condition. No reports of any acute events overnight. RN took patient outside today, patient nodded yes to enjoying this. Afebrile. VSS. Objective Vitals Vital Signs Date Time Temp Pulse Resp B/P (MAP) Pulse Ox O2 Delivery O2 Flow Rate FiO2 06/24/17 08:00 97.4 76 18 108/54 (72) 96 06/23/17 21:46 98.3 73 16 120/72 (88) 93 I/O 06/23/17 06/23/17 06/23/17 06/24/17 06/24/17 06/24/17 07:00 15:00 23:00 07:00 15:00 23:00 Intake Total 1110 ml Output Total 450 ml 550 ml Balance -450 ml -550 ml 1110 ml Tube Feeding 510 ml Other 600 ml Output Urine Total 450 ml 550 ml # Bowel Movements 2 2 0 Imaging Last Impressions Chest X-Ray 06/01/17 1118 Signed Impressions: Service Date/Time: May 11:33 - CONCLUSION: Bibasilar patchy infiltrates. Gen Potter MD Hip Aspiration/Injection 10/08/16 0000 Signed Impressions: Service Date/Time: Tuesday, October 11, 2016 13:41 - CONCLUSION: Uncomplicated aspiration as above. Minimal fluid on the right. No identifiable fluid on the left Clayton Max MD Lower Extremity Ultrasound 10/06/16 0000 Signed Impressions: Service Date/Time: September 17:29 - CONCLUSION: Normal examination. Josafat Meyer MD CT Angiography 10/06/16 0000 Signed Impressions: Service Date/Time: September 20:31 - CONCLUSION: Minimal right upper lobe infiltrate and basilar atelectasis. No evidence of pulmonary embolism.. Josafat Meyer MD Abdomen/Pelvis CT 10/06/16 0000 Signed Impressions: Service Date/Time: September 20:31 - CONCLUSION: No evidence of pelvic abscess. Josafat Meyer MD Upper Extremity Ultrasound 09/28/16 0000 Signed Impressions: Service Date/Time: Wednesday, September 28, 2016 19:15 - CONCLUSION: 1. Occlusive superficial thrombosis in the left cephalic vein near the antecubital fossa. No deep venous thrombosis. Sumit Bourgeois MD Renal Ultrasound 08/28/16 Signed Impressions: Service Date/Time: Sunday, August 28, 2016 20:03 - CONCLUSION: Mild increased echotexture of both kidneys. Baldev Vu MD Lumbar Puncture Fluoroscopy 08/17/16 Signed Impressions: Service Date/Time: Wednesday, August 17, 2016 12:26 - CONCLUSION: Uncomplicated fluoroscopically guided lumbar puncture. Vishal Beckford Jr., MD Brain MRI 08/17/16 Signed Impressions: Service Date/Time: Wednesday, August 17, 2016 13:28 - CONCLUSION: Remote long-standing areas of abnormality in the brainstem and middle cerebellar peduncle consistent with remote infarcts or contusion. No acute intracranial abnormality. Chacho Bright MD Abdomen X-Ray 08/17/16 Signed Impressions: Service Date/Time: Wednesday, August 17, 2016 13:02 - CONCLUSION: No evidence of obstruction. No MRI incompatible foreign body is identified. Chacho Bright MD Head CT 08/16/16 Signed Impressions: Service Date/Time: Tuesday, August 16, 2016 09:55 - CONCLUSION: Chronic ischemic changes left frontal lobe possibly from evidence of previous ventriculostomy placement, unchanged. No acute intracranial abnormality. Gen Potter MD Modified Barium Swallow 08/15/16 Signed Impressions: Service Date/Time: Monday, August 15, 2016 00:00 - CONCLUSION: See report above and speech pathology report Chacho Bright MD Objective Remarks GENERAL: Well-developed cachectic and contracted male patient in NAD. Awake and alert. Nodding appropriately. SKIN: Warm and dry. No rash. HEENT: Normocephalic. Atraumatic. Pupils equal and round. No scleral icterus. No injection or drainage. No nasal bleeding or discharge. Mucous membranes pink and moist. NECK: Supple. Trachea midline. CARDIOVASCULAR: Regular rate and rhythm. S1, S2 noted. No murmur appreciated. RESPIRATORY: No accessory muscle use. Course and rhonchi throughout lung [place]. Breath sounds equal bilaterally. GASTROINTESTINAL: Abdomen soft, non-tender, nondistended. Normoactive bowel sounds x4. No guarding. PEG tube noted, no erythema or drainage from site, c/d/ i. MUSCULOSKELETAL: No obvious deformities. Extremities without clubbing, cyanosis , or edema. 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 (2) Hospital acquired PNA ICD Code: J18.9 - Pneumonia, unspecified organism Status: Resolved (3) Sepsis ICD Code: A41.9 - Sepsis, unspecified organism Status: Resolved (4) Encephalopathy ICD Code: G93.40 - Encephalopathy, unspecified Status: Resolved (5) GI bleed ICD Code: K92.2 - Gastrointestinal hemorrhage, unspecified Status: Resolved (6) HCAP (healthcare-associated pneumonia) ICD Code: J18.9 - Pneumonia, unspecified organism Status: Resolved (7) UTI (urinary tract infection) ICD Code: N39.0 - Urinary tract infection, site not specified Status: Resolved (8) Leucocytosis ICD Code: D72.829 - Elevated white blood cell count, unspecified Status: Resolved (9) Fever ICD Code: R50.9 - Fever, unspecified Status: Resolved (10) Effusion of hip joint ICD Code: M25.459 - Effusion, unspecified hip Status: Acute (11) 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 Patient was followed by neurology. Aphasic at baseline. Continue Imuran, prednisone EEG shows mild to moderate slowing at times of various depending on the epoch , there was no epileptic activity seen Continue PT/OT Palliative care still following the patient. 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 Last changed 06/02/17. --Decreased oral intake and dysphagia on initial presentation Speech therapy evaluated patient. S/P barium swallow. Patient with severe dysphagia. GI was consulted and PEG tube was placed. Patient was intolerant to bolus feeding Dietary reconsulted and made recommendations Oral thrush, improved. Likely secondary to recent antibiotic use Status post nystatin Coccyx decubitus. Ankle ulceration Wound care nurse is following the patient for management Patient with specialty bed Mood disorder, depression Psychiatry evaluated patient and made recommendations Prozac 40 mg daily Seroquel 25 mg at bedtime Diabetes Glucose well controlled DVT Prophylaxis: Lovenox, TEDs/SCDs. Medical records were reviewed. No change in current treatment plan. Awaiting case management for discharge planning Discharge Planning Case management assisting. Problem Qualifiers (1) GI bleed: (2) UTI (urinary tract infection): (3) Effusion of hip joint: Dotty Pacheco Jun 24, 2017 17:15
[2017-06-24 21:06] VITALS: BP 102/77; PULSE 100; RESP 20; TEMP 98.7; O2SAT 97
[2017-06-24] MEDS: QUEtiapine FUMARATE 25 MG TAB PO SCH (23:23)
[2017-06-25] MEDS: azaTHIOprine 50 MG TAB PEG SCH ×2 (05:38→17:20)
[2017-06-25 08:00] VITALS: BP 121/90; PULSE 90; RESP 16; TEMP 98.2; O2SAT 96
[2017-06-25] MEDS: ENOXAPARIN SODIUM 40 MG/0.4 ML SYRINGE SQ SCH (08:20)
[2017-06-25] MEDS: predniSONE 20 MG TAB PEG SCH (08:20)
[2017-06-25] MEDS: LACTOBACILLUS ACIDOPHILUS TAB PEG SCH ×2 (08:20→22:30)
[2017-06-25] MEDS: JUVEN POWDER 1 PACK G-TUBE SCH ×2 (08:20→22:30)
[2017-06-25] MEDS: LANSOPRAZOLE SOLUTAB 30 MG TAB PEG SCH ×2 (08:20→22:30)
[2017-06-25] MEDS: SENNOSIDES SYRUP 8.8 MG/5 ML CUP PEG SCH (08:20)
[2017-06-25] MEDS: FLUoxetine HCL LIQUID 20 MG/5 ML CUP PEG SCH (08:20)
--- NOTE | 2017-06-25 11:35 | HHI.PR ---
Subjective Remarks Follow up Neuro Bechets syndrome. Patient seen and examined. Lying awake and comfortably in bed. Denies any complaints. No change in clinical condition. Objective Vitals Vital Signs Date Time Temp Pulse Resp B/P (MAP) Pulse Ox O2 Delivery O2 Flow Rate FiO2 06/25/17 08:00 98.2 90 16 121/90 (100) 96 06/24/17 21:06 98.7 100 20 102/77 (85) 97 I/O 06/24/17 06/24/17 06/24/17 06/25/17 06/25/17 06/25/17 07:00 15:00 23:00 07:00 15:00 23:00 Intake Total 1110 ml Output Total 650 ml 625 ml Balance 1110 ml -650 ml -625 ml Tube Feeding 510 ml Other 600 ml Output Urine Total 650 ml 625 ml # Bowel Movements 0 1 Imaging Last Impressions Chest X-Ray 06/01/17 1118 Signed Impressions: Service Date/Time: May 11:33 - CONCLUSION: Bibasilar patchy infiltrates. eGn Potter MD Hip Aspiration/Injection 10/08/16 0000 Signed Impressions: Service Date/Time: Tuesday, October 11, 2016 13:41 - CONCLUSION: Uncomplicated aspiration as above. Minimal fluid on the right. No identifiable fluid on the left Clayton Max MD Lower Extremity Ultrasound 10/06/16 0000 Signed Impressions: Service Date/Time: September 17:29 - CONCLUSION: Normal examination. Josafat Meyer MD CT Angiography 10/06/16 0000 Signed Impressions: Service Date/Time: September 20:31 - CONCLUSION: Minimal right upper lobe infiltrate and basilar atelectasis. No evidence of pulmonary embolism.. Josafat Meyer MD Abdomen/Pelvis CT 10/06/16 0000 Signed Impressions: Service Date/Time: September 20:31 - CONCLUSION: No evidence of pelvic abscess. Josafat Meyer MD Upper Extremity Ultrasound 09/28/16 0000 Signed Impressions: Service Date/Time: Wednesday, September 28, 2016 19:15 - CONCLUSION: 1. Occlusive superficial thrombosis in the left cephalic vein near the antecubital fossa. No deep venous thrombosis. Sumit Bourgeois MD Renal Ultrasound 08/28/16 0000 Signed Impressions: Service Date/Time: Sunday, August 28, 2016 20:03 - CONCLUSION: Mild increased echotexture of both kidneys. Baldev Vu MD Lumbar Puncture Fluoroscopy 08/17/16 0000 Signed Impressions: Service Date/Time: Wednesday, August 17, 2016 12:26 - CONCLUSION: Uncomplicated fluoroscopically guided lumbar puncture. Vishal Beckford Jr., MD Brain MRI 08/17/16 0000 Signed Impressions: Service Date/Time: Wednesday, August 17, 2016 13:28 - CONCLUSION: Remote long-standing areas of abnormality in the brainstem and middle cerebellar peduncle consistent with remote infarcts or contusion. No acute intracranial abnormality. Chacho Bright MD Abdomen X-Ray 08/17/16 0000 Signed Impressions: Service Date/Time: Wednesday, August 17, 2016 13:02 - CONCLUSION: No evidence of obstruction. No MRI incompatible foreign body is identified. Chacho Bright MD Head CT 08/16/16 0000 Signed Impressions: Service Date/Time: Tuesday, August 16, 2016 09:55 - CONCLUSION: Chronic ischemic changes left frontal lobe possibly from evidence of previous ventriculostomy placement, unchanged. No acute intracranial abnormality. Gen Potter MD Modified Barium Swallow 08/15/16 0000 Signed Impressions: Service Date/Time: Monday, August 15, 2016 00:00 - CONCLUSION: See report above and speech pathology report Chacho Bright MD Objective Remarks GENERAL: Well-developed cachectic and contracted male patient in NAD. Awake and alert. Nodding appropriately. SKIN: Warm and dry. No rash. HEENT: Normocephalic. Atraumatic. Pupils equal and round. No scleral icterus. No injection or drainage. No nasal bleeding or discharge. Mucous membranes pink and moist. NECK: Supple. Trachea midline. CARDIOVASCULAR: Regular rate and rhythm. S1, S2 noted. No murmur appreciated. RESPIRATORY: No accessory muscle use. Course and rhonchi throughout lung lawson. Breath sounds equal bilaterally. GASTROINTESTINAL: Abdomen soft, non-tender, nondistended. Normoactive bowel sounds x4. No guarding. PEG tube noted, no erythema or drainage from site, c/d/ i. MUSCULOSKELETAL: No obvious deformities. Extremities without clubbing, cyanosis , or edema. 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 (2) Hospital acquired PNA ICD Code: J18.9 - Pneumonia, unspecified organism Status: Resolved (3) Sepsis ICD Code: A41.9 - Sepsis, unspecified organism Status: Resolved (4) Encephalopathy ICD Code: G93.40 - Encephalopathy, unspecified Status: Resolved (5) GI bleed ICD Code: K92.2 - Gastrointestinal hemorrhage, unspecified Status: Resolved (6) HCAP (healthcare-associated pneumonia) ICD Code: J18.9 - Pneumonia, unspecified organism Status: Resolved (7) UTI (urinary tract infection) ICD Code: N39.0 - Urinary tract infection, site not specified Status: Resolved (8) Leucocytosis ICD Code: D72.829 - Elevated white blood cell count, unspecified Status: Resolved (9) Fever ICD Code: R50.9 - Fever, unspecified Status: Resolved (10) Effusion of hip joint ICD Code: M25.459 - Effusion, unspecified hip Status: Acute (11) 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 Patient was followed by neurology. Aphasic at baseline. Continue Imuran, prednisone EEG shows mild to moderate slowing at times of various depending on the epoch , there was no epileptic activity seen Continue PT/OT Palliative care still following the patient. 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 Last changed 06/02/17. --Decreased oral intake and dysphagia on initial presentation Speech therapy evaluated patient. S/P barium swallow. Patient with severe dysphagia. GI was consulted and PEG tube was placed. Patient was intolerant to bolus feeding Dietary reconsulted and made recommendations Oral thrush, improved. Likely secondary to recent antibiotic use Status post nystatin Coccyx decubitus. Ankle ulceration Wound care nurse is following the patient for management Patient with specialty bed Mood disorder, depression Psychiatry evaluated patient and made recommendations Prozac 40 mg daily Seroquel 25 mg at bedtime Diabetes Glucose well controlled DVT Prophylaxis: Lovenox, TEDs/SCDs. Medical records were reviewed. No change in current treatment plan. Awaiting case management for discharge planning Discharge Planning Case management assisting. Problem Qualifiers (1) GI bleed: (2) UTI (urinary tract infection): (3) Effusion of hip joint: Dotty Pacheco Jun 25, 2017 11:35
[2017-06-25 19:47] VITALS: BP 125/79; PULSE 68; RESP 16; TEMP 98.2; O2SAT 94
[2017-06-25] MEDS: QUEtiapine FUMARATE 25 MG TAB PO SCH (22:30)
[2017-06-26] MEDS: azaTHIOprine 50 MG TAB PEG SCH ×2 (06:03→18:41)
[2017-06-26 07:50] VITALS: BP 171/88; PULSE 113; RESP 20; TEMP 98.8; O2SAT 100
[2017-06-26] MEDS: JUVEN POWDER 1 PACK G-TUBE SCH ×2 (09:00→21:00)
--- NOTE | 2017-06-26 09:12 | HHI.PR ---
Subjective Remarks Follow up Neuro Bechets syndrome. Patient seen and examined, lying in bed awake and comfortable. Denies any pain. No change in clinical condition. Continue supportive care. Afebrile. VSS. Tolerating TF. Objective Vitals Vital Signs Date Time Temp Pulse Resp B/P (MAP) Pulse Ox O2 Delivery O2 Flow Rate FiO2 06/25/17 19:47 98.2 68 16 125/79 (94) 94 I/O 06/25/17 06/25/17 06/25/17 06/26/17 06/26/17 06/26/17 07:00 15:00 23:00 07:00 15:00 23:00 Intake Total 1280 ml 1132 ml Output Total 650 ml 625 ml Balance -650 ml -625 ml 1280 ml 1132 ml Tube Feeding 600 ml 592 ml Other 680 ml 540 ml Output Urine Total 650 ml 625 ml # Bowel Movements 1 0 Imaging Last Impressions Chest X-Ray 06/01/17 1118 Signed Impressions: Service Date/Time: May 11:33 - CONCLUSION: Bibasilar patchy infiltrates. Gen Potter MD Hip Aspiration/Injection 10/08/16 0000 Signed Impressions: Service Date/Time: Tuesday, October 11, 2016 13:41 - CONCLUSION: Uncomplicated aspiration as above. Minimal fluid on the right. No identifiable fluid on the left Clayton Max MD Lower Extremity Ultrasound 10/06/16 0000 Signed Impressions: Service Date/Time: September 17:29 - CONCLUSION: Normal examination. Josafat Meyer MD CT Angiography 10/06/16 0000 Signed Impressions: Service Date/Time: September 20:31 - CONCLUSION: Minimal right upper lobe infiltrate and basilar atelectasis. No evidence of pulmonary embolism.. Josafat Meyer MD Abdomen/Pelvis CT 10/06/16 0000 Signed Impressions: Service Date/Time: September 20:31 - CONCLUSION: No evidence of pelvic abscess. Josafat Meyer MD Upper Extremity Ultrasound 09/28/16 0000 Signed Impressions: Service Date/Time: Wednesday, September 28, 2016 19:15 - CONCLUSION: 1. Occlusive superficial thrombosis in the left cephalic vein near the antecubital fossa. No deep venous thrombosis. Sumit Bourgeois MD Renal Ultrasound 08/28/16 Signed Impressions: Service Date/Time: Sunday, August 28, 2016 20:03 - CONCLUSION: Mild increased echotexture of both kidneys. Baldev Vu MD Lumbar Puncture Fluoroscopy 08/17/16 Signed Impressions: Service Date/Time: Wednesday, August 17, 2016 12:26 - CONCLUSION: Uncomplicated fluoroscopically guided lumbar puncture. Vishal Beckford Jr., MD Brain MRI 08/17/16 Signed Impressions: Service Date/Time: Wednesday, August 17, 2016 13:28 - CONCLUSION: Remote long-standing areas of abnormality in the brainstem and middle cerebellar peduncle consistent with remote infarcts or contusion. No acute intracranial abnormality. Chacho Bright MD Abdomen X-Ray 08/17/16 Signed Impressions: Service Date/Time: Wednesday, August 17, 2016 13:02 - CONCLUSION: No evidence of obstruction. No MRI incompatible foreign body is identified. Chacho Bright MD Head CT 08/16/16 Signed Impressions: Service Date/Time: Tuesday, August 16, 2016 09:55 - CONCLUSION: Chronic ischemic changes left frontal lobe possibly from evidence of previous ventriculostomy placement, unchanged. No acute intracranial abnormality. Gen Potter MD Modified Barium Swallow 08/15/16 Signed Impressions: Service Date/Time: Monday, August 15, 2016 00:00 - CONCLUSION: See report above and speech pathology report Chacho Bright MD Objective Remarks GENERAL: Well-developed cachectic and contracted male patient in NAD. Awake and alert. Nodding appropriately. SKIN: Warm and dry. No rash. HEENT: Normocephalic. Atraumatic. Pupils equal and round. No scleral icterus. No injection or drainage. No nasal bleeding or discharge. Mucous membranes pink and moist. NECK: Supple. Trachea midline. CARDIOVASCULAR: Regular rate and rhythm. S1, S2 noted. No murmur appreciated. RESPIRATORY: No accessory muscle use. Course and rhonchi throughout lung lawson. Breath sounds equal bilaterally. GASTROINTESTINAL: Abdomen soft, non-tender, nondistended. Normoactive bowel sounds x4. No guarding. PEG tube noted, no erythema or drainage from site, c/d/ i. MUSCULOSKELETAL: No obvious deformities. Extremities without clubbing, cyanosis , or edema. 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 (2) Hospital acquired PNA ICD Code: J18.9 - Pneumonia, unspecified organism Status: Resolved (3) Sepsis ICD Code: A41.9 - Sepsis, unspecified organism Status: Resolved (4) Encephalopathy ICD Code: G93.40 - Encephalopathy, unspecified Status: Resolved (5) GI bleed ICD Code: K92.2 - Gastrointestinal hemorrhage, unspecified Status: Resolved (6) HCAP (healthcare-associated pneumonia) ICD Code: J18.9 - Pneumonia, unspecified organism Status: Resolved (7) UTI (urinary tract infection) ICD Code: N39.0 - Urinary tract infection, site not specified Status: Resolved (8) Leucocytosis ICD Code: D72.829 - Elevated white blood cell count, unspecified Status: Resolved (9) Fever ICD Code: R50.9 - Fever, unspecified Status: Resolved (10) Effusion of hip joint ICD Code: M25.459 - Effusion, unspecified hip Status: Acute (11) 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 Patient was followed by neurology. Aphasic at baseline. Continue Imuran, prednisone EEG shows mild to moderate slowing at times of various depending on the epoch , there was no epileptic activity seen Continue PT/OT Palliative care still following the patient. 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 Last changed 06/02/17. --Decreased oral intake and dysphagia on initial presentation Speech therapy evaluated patient. S/P barium swallow. Patient with severe dysphagia. GI was consulted and PEG tube was placed. Patient was intolerant to bolus feeding Dietary reconsulted and made recommendations Coccyx decubitus. Ankle ulceration Wound care nurse is following the patient for management Patient with specialty bed Mood disorder, depression Psychiatry evaluated patient and made recommendations Prozac 40 mg daily Seroquel 25 mg at bedtime Diabetes Glucose well controlled Oral thrush Likely secondary to recent antibiotic use Status post nystatin Encouraged staff electrical engineer to perform oral care BID. DVT Prophylaxis: Lovenox, TEDs/SCDs. Medical records were reviewed. No change in current treatment plan. Awaiting case management for discharge planning Discharge Planning Case management assisting. Problem Qualifiers (1) GI bleed: (2) UTI (urinary tract infection): (3) Effusion of hip joint: Dotty Pacheco Jun 26, 2017 09:12
[2017-06-26] MEDS: FLUoxetine HCL LIQUID 20 MG/5 ML CUP PEG SCH (10:41)
[2017-06-26] MEDS: ENOXAPARIN SODIUM 40 MG/0.4 ML SYRINGE SQ SCH (10:41)
[2017-06-26] MEDS: SENNOSIDES SYRUP 8.8 MG/5 ML CUP PEG SCH (10:41)
[2017-06-26] MEDS: LACTOBACILLUS ACIDOPHILUS TAB PEG SCH ×2 (10:42→23:12)
[2017-06-26] MEDS: LANSOPRAZOLE SOLUTAB 30 MG TAB PEG SCH ×2 (10:42→23:12)
[2017-06-26] MEDS: predniSONE 20 MG TAB PEG SCH (10:42)
[2017-06-26 20:00] VITALS: BP 110/79; PULSE 91; RESP 20; TEMP 98.2; O2SAT 92
[2017-06-26] MEDS: QUEtiapine FUMARATE 25 MG TAB PO SCH (23:12)
[2017-06-27] MEDS: azaTHIOprine 50 MG TAB PEG SCH ×2 (06:14→18:46)
[2017-06-27 08:00] VITALS: BP 129/84; PULSE 97; RESP 20; O2SAT 95
--- NOTE | 2017-06-27 08:39 | HHI.PR ---
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 Patient denies any new complaints. No change in clinical status. Vital signs are stable, afebrile Objective Vitals Vital Signs Date Time Temp Pulse Resp B/P (MAP) Pulse Ox O2 Delivery O2 Flow Rate FiO2 06/26/17 20:00 98.2 91 20 110/79 (89) 92 I/O 06/26/17 06/26/17 06/26/17 06/27/17 06/27/17 06/27/17 07:00 15:00 23:00 07:00 15:00 23:00 Intake Total 1132 ml 520 ml Output Total 350 ml 350 ml Balance 1132 ml 170 ml -350 ml Tube Feeding 592 ml Tube Irrigant 120 ml Other 540 ml 400 ml Output Urine Total 350 ml 350 ml # Bowel Movements 0 0 Objective Remarks GENERAL: Well-developed, cachectic and contracted. HEENT: Head is normocephalic without any lesions or masses noted. Facial features are symmetric. Eyes: Extraocular muscles are intact. Conjunctivae were clear. NECK: Trachea midline no deviation. CARDIAC: Regular rhythm, tachycardia noted. S1/S2 are heard. No murmurs gallops or rubs. LUNGS: Clear to auscultation bilaterally. No wheeze, rhonchi or rales. No use of accessory muscles on inspiration or expiration. ABDOMEN: Soft, nontender. Nondistended. Bowel sounds heard in all 4 quadrants. No organomegaly or masses. Negative rebound, negative guarding. PEG tube noted without any excoriation. EXTREMITIES: No edema, pulses are equal bilaterally. No cyanosis or clubbing. Procedures 07/19/16 EGD with PEG tube placement 09/27/16 colonoscopy Urinary Catheter: Yes Kowalski insert reason: Obstruction/Retention Date of Insertion: Jun 02, 2017 Vascular Central Line Catheter: No A/P Assessment and Plan Neuro-Behcet, history of frontal lobe CVA, encephalopathy, history of meningitis , Blurred vision/double vision, urinary retention, chronic No new changes on imaging. Patient was followed by neurology. Aphasic at baseline. Continue Imuran, prednisone EEG shows mild to moderate slowing at times of various depending on the epoch , there was no epileptic activity seen Continue PT/OT Palliative care still following the patient. 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 06/02/17 --Decreased oral intake and dysphagia on initial presentation Speech therapy evaluated patient. S/P barium swallow. Patient with severe dysphagia. GI was consulted and PEG tube was placed. Patient was intolerant to bolus feeding Dietary reconsulted and made recommendations Oral thrush Likely secondary to recent antibiotic use Continue nystatin for 2 weeks Coccyx decubitus. Ankle ulceration Wound care nurse is following the patient for management Patient with specialty bed Mood disorder, depression Psychiatry evaluated patient and made recommendations Prozac 40 mg daily Seroquel 25 mg at bedtime Diabetes Glucose continues to be well controlled, DVT Prophylaxis: Lovenox, TEDs/SCDs. Medical records were reviewed. Awaiting case management for discharge planning No change in current treatment plan. Discharge Planning Case management for discharge planning, Ede Richardson Jun 27, 2017 08:39
[2017-06-27] MEDS: JUVEN POWDER 1 PACK G-TUBE SCH ×2 (09:00→22:55)
[2017-06-27] MEDS: predniSONE 20 MG TAB PEG SCH (09:26)
[2017-06-27] MEDS: FLUoxetine HCL LIQUID 20 MG/5 ML CUP PEG SCH (09:27)
[2017-06-27] MEDS: LACTOBACILLUS ACIDOPHILUS TAB PEG SCH ×2 (09:27→21:02)
[2017-06-27] MEDS: SENNOSIDES SYRUP 8.8 MG/5 ML CUP PEG SCH (09:27)
[2017-06-27] MEDS: LANSOPRAZOLE SOLUTAB 30 MG TAB PEG SCH ×2 (09:27→21:02)
[2017-06-27] MEDS: ENOXAPARIN SODIUM 40 MG/0.4 ML SYRINGE SQ SCH (09:31)
[2017-06-27 20:00] VITALS: BP 121/85; PULSE 81; RESP 20; TEMP 96.3; O2SAT 97
[2017-06-27] MEDS: QUEtiapine FUMARATE 25 MG TAB PO SCH (21:02)
[2017-06-28] VITALS: BP 114/66; PULSE 85; RESP 16; TEMP 97.1; O2SAT 96
[2017-06-28] MEDS: azaTHIOprine 50 MG TAB PEG SCH ×2 (05:31→18:26)
[2017-06-28 07:50] VITALS: BP 134/84; PULSE 86; RESP 20; TEMP 97.7; O2SAT 97
--- NOTE | 2017-06-28 08:53 | HHI.PR ---
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 Patient lying in bed, denies any new complaints. No change in clinical status. Vital signs table, afebrile. Objective Vitals Vital Signs Date Time Temp Pulse Resp B/P (MAP) Pulse Ox O2 Delivery O2 Flow Rate FiO2 06/28/17 00:00 97.1 85 16 114/66 (82) 96 06/27/17 20:00 96.3 81 20 121/85 (97) 97 I/O 06/27/17 06/27/17 06/27/17 06/28/17 06/28/17 06/28/17 07:00 15:00 23:00 07:00 15:00 23:00 Intake Total 1450 ml Output Total 350 ml 601 ml 450 ml Balance -350 ml 849 ml -450 ml Tube Feeding 600 ml Tube Irrigant 850 ml Output Urine Total 350 ml 600 ml 450 ml Stool Total 1 ml # Bowel Movements 0 0 Objective Remarks GENERAL: Well-developed, cachectic and contracted. HEENT: Head is normocephalic without any lesions or masses noted. Facial features are symmetric. Eyes: Extraocular muscles are intact. Conjunctivae were clear. NECK: Trachea midline no deviation. CARDIAC: Regular rhythm, tachycardia noted. S1/S2 are heard. No murmurs gallops or rubs. LUNGS: Clear to auscultation bilaterally. No wheeze, rhonchi or rales. No use of accessory muscles on inspiration or expiration. ABDOMEN: Soft, nontender. Nondistended. Bowel sounds heard in all 4 quadrants. No organomegaly or masses. Negative rebound, negative guarding. PEG tube noted without any excoriation. EXTREMITIES: No edema, pulses are equal bilaterally. No cyanosis or clubbing. Procedures 07/19/16 EGD with PEG tube placement 09/27/16 colonoscopy Urinary Catheter: Yes Assessment to: Continue Kowalski insert reason: Obstruction/Retention Date of Insertion: Jun 02, 2017 Vascular Central Line Catheter: No A/P Assessment and Plan Neuro-Behcet, history of frontal lobe CVA, encephalopathy, history of meningitis , Blurred vision/double vision, urinary retention, chronic No new changes on imaging. Patient was followed by neurology. Aphasic at baseline. Continue Imuran, prednisone EEG shows mild to moderate slowing at times of various depending on the epoch , there was no epileptic activity seen Continue PT/OT Palliative care still following the patient. 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 06/02/17 --Decreased oral intake and dysphagia on initial presentation Speech therapy evaluated patient. S/P barium swallow. Patient with severe dysphagia. GI was consulted and PEG tube was placed. Patient was intolerant to bolus feeding Dietary reconsulted and made recommendations Oral thrush Likely secondary to recent antibiotic use Continue nystatin for 2 weeks Coccyx decubitus. Ankle ulceration Wound care nurse is following the patient for management Patient with specialty bed Mood disorder, depression Psychiatry evaluated patient and made recommendations Prozac 40 mg daily Seroquel 25 mg at bedtime Diabetes Glucose continues to be well controlled, DVT Prophylaxis: Lovenox, TEDs/SCDs. Medical records were reviewed. No change in current treatment plan. Awaiting case management for discharge planning Discharge Planning Case management for discharge planning, Ede Richardson Jun 28, 2017 08:52
--- NOTE | 2017-06-28 10:22 | HHI.HCPN ---
I telephoned the patient's health care surrogate -- Patricia Lebron -- today to check in. Ms. Lebron last visited the patient on 06/25/17. She visited the patient with his daughter. She reports he appeared comfortable, that he recognized them, and appeared happy to see them. I updated Ms. Lebron on the patient's current status and we reviewed how the patient has a "progressive" disease that will continue to grow worse over time. We reviewed goals of medical treatment and Ms. Lebron remains consistent that she wants everything done to prolong the patient's life. She also reiterated that, if possible, she would like him transported to [place] to be with his mother. The medical record was reviewed today. VS are stable. Nursing pain levels have been listed at 0. No new medications started. No new lab or imaging since 06/01/17. Placement continues to be a challenge. . Antolin Daniel MD Jun 28, 2017 10:22
[2017-06-28] MEDS: JUVEN POWDER 1 PACK G-TUBE SCH ×2 (10:44→21:23)
[2017-06-28] MEDS: ENOXAPARIN SODIUM 40 MG/0.4 ML SYRINGE SQ SCH (10:45)
[2017-06-28] MEDS: LANSOPRAZOLE SOLUTAB 30 MG TAB PEG SCH ×2 (10:45→21:18)
[2017-06-28] MEDS: LACTOBACILLUS ACIDOPHILUS TAB PEG SCH ×2 (10:45→21:18)
[2017-06-28] MEDS: SENNOSIDES SYRUP 8.8 MG/5 ML CUP PEG SCH (10:46)
[2017-06-28] MEDS: FLUoxetine HCL LIQUID 20 MG/5 ML CUP PEG SCH (10:46)
[2017-06-28] MEDS: predniSONE 20 MG TAB PEG SCH (10:46)
--- NOTE | 2017-06-28 17:14 | PD.WCN.NOT ---
Wound Consult Description: Follow up on 3rd floor [facility] for R lateral malleolus wound . Communicated with: Dr.Davis CARRASCO Recommendation: 1) Please cleanse wound with normal saline pat dry.Skin prep periwound 2) Apply Calazime to open area cover with dry boarder dressing 3) Change every 4-7 days or as needed for dislodgement Additional Information: Patient was seen on 3rd floor [facility] by policy writer sales for follow up of R lateral malleolus .Wound measures 0.5cm x 0.9cm x .2cm pink tissue present in wound bed no drainage noted no odor.Maxsorb adhered to wound bed .Lead Tank Mechanic soaked Maxsorb with normal saline cleansed wound after removal skin prep to periwound Calazime applied to open area covered with dry boarder gauze signed and dated.Patient tolerated wound care well.Wound is progressive in healing process. Edson Harman [facility] Jun 28, 2017 17:14
[2017-06-28 20:00] VITALS: BP 122/78; PULSE 80; RESP 18; TEMP 96.6; O2SAT 96
[2017-06-28] MEDS: QUEtiapine FUMARATE 25 MG TAB PO SCH (21:18)
[2017-06-29] MEDS: azaTHIOprine 50 MG TAB PEG SCH ×2 (06:05→17:34)
[2017-06-29 07:50] VITALS: BP 127/89; PULSE 85; RESP 20; TEMP 96.1; O2SAT 97
--- NOTE | 2017-06-29 08:15 | HHI.PR ---
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 Patient has any new complaints. No change in clinical status. Awaiting case management discharge planning. Vital signs are stable, afebrile Objective Vitals Vital Signs Date Time Temp Pulse Resp B/P (MAP) Pulse Ox O2 Delivery O2 Flow Rate FiO2 06/28/17 20:00 96.6 80 18 122/78 (93) 96 Automatic Cuff I/O 06/28/17 06/28/17 06/28/17 06/29/17 06/29/17 06/29/17 07:00 15:00 23:00 07:00 15:00 23:00 Intake Total 1150 ml 900 ml Output Total 450 ml 500 ml 400 ml Balance -450 ml 650 ml 500 ml Intake Oral 0 ml Tube Feeding 600 ml 550 ml Tube Irrigant 550 ml 350 ml Output Urine Total 450 ml 500 ml 400 ml # Bowel Movements 0 0 2 Objective Remarks GENERAL: Well-developed, cachectic and contracted. HEENT: Head is normocephalic without any lesions or masses noted. Facial features are symmetric. Eyes: Extraocular muscles are intact. Conjunctivae were clear. NECK: Trachea midline no deviation. CARDIAC: Regular rhythm, tachycardia noted. S1/S2 are heard. No murmurs gallops or rubs. LUNGS: Clear to auscultation bilaterally. No wheeze, rhonchi or rales. No use of accessory muscles on inspiration or expiration. ABDOMEN: Soft, nontender. Nondistended. Bowel sounds heard in all 4 quadrants. No organomegaly or masses. Negative rebound, negative guarding. PEG tube noted without any excoriation. EXTREMITIES: No edema, pulses are equal bilaterally. No cyanosis or clubbing. Procedures 07/19/16 EGD with PEG tube placement 09/27/16 colonoscopy Urinary Catheter: Yes Assessment to: Continue Kowalski insert reason: Obstruction/Retention Date of Insertion: Jun 02, 2017 Vascular Central Line Catheter: No A/P Assessment and Plan Neuro-Behcet, history of frontal lobe CVA, encephalopathy, history of meningitis , Blurred vision/double vision, urinary retention, chronic No new changes on imaging. Patient was followed by neurology. Aphasic at baseline. Continue Imuran, prednisone EEG shows mild to moderate slowing at times of various depending on the epoch , there was no epileptic activity seen Continue PT/OT Palliative care still following the patient. 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 06/02/17 --Decreased oral intake and dysphagia on initial presentation Speech therapy evaluated patient. S/P barium swallow. Patient with severe dysphagia. GI was consulted and PEG tube was placed. Patient was intolerant to bolus feeding Dietary reconsulted and made recommendations Oral thrush Likely secondary to recent antibiotic use Continue nystatin for 2 weeks Coccyx decubitus. Ankle ulceration Wound care nurse is following the patient for management Patient with specialty bed Mood disorder, depression Psychiatry evaluated patient and made recommendations Prozac 40 mg daily Seroquel 25 mg at bedtime Diabetes Glucose continues to be well controlled, DVT Prophylaxis: Lovenox, TEDs/SCDs. Medical records were reviewed. Awaiting case management for discharge planning No change in current treatment plan. Discharge Planning Case management for discharge planning, Ede Richardson Jun 29, 2017 08:15
[2017-06-29] MEDS: LANSOPRAZOLE SOLUTAB 30 MG TAB PEG SCH ×2 (10:00→21:15)
[2017-06-29] MEDS: LACTOBACILLUS ACIDOPHILUS TAB PEG SCH ×2 (10:00→21:15)
[2017-06-29] MEDS: JUVEN POWDER 1 PACK G-TUBE SCH ×2 (10:00→21:00)
[2017-06-29] MEDS: ENOXAPARIN SODIUM 40 MG/0.4 ML SYRINGE SQ SCH (10:00)
[2017-06-29] MEDS: predniSONE 20 MG TAB PEG SCH (10:01)
[2017-06-29] MEDS: FLUoxetine HCL LIQUID 20 MG/5 ML CUP PEG SCH (10:01)
[2017-06-29] MEDS: SENNOSIDES SYRUP 8.8 MG/5 ML CUP PEG SCH (10:01)
[2017-06-29 20:00] VITALS: BP 105/76; PULSE 83; RESP 20; TEMP 96; O2SAT 96
[2017-06-29] MEDS: QUEtiapine FUMARATE 25 MG TAB PO SCH (21:15)
[2017-06-30] MEDS: azaTHIOprine 50 MG TAB PEG SCH ×2 (05:33→17:47)
[2017-06-30 08:00] VITALS: BP 121/70; PULSE 95; RESP 18; TEMP 98.7; O2SAT 94
--- NOTE | 2017-06-30 08:46 | HHI.PR ---
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 No acute events overnight, No new complaints. Vitals stable, Afebrile Objective Vitals Vital Signs Date Time Temp Pulse Resp B/P (MAP) Pulse Ox O2 Delivery O2 Flow Rate FiO2 06/30/17 08:00 98.7 95 18 121/70 (87) 94 06/29/17 20:00 96.0 83 20 105/76 (86) 96 Manual Cuff/Auscultation I/O 06/29/17 06/29/17 06/29/17 06/30/17 06/30/17 06/30/17 07:00 15:00 23:00 07:00 15:00 23:00 Intake Total 900 ml 1200 ml 1340 ml Output Total 400 ml 450 ml 450 ml Balance 500 ml 750 ml 890 ml Intake Oral 0 ml 0 ml Tube Feeding 550 ml 600 ml 560 ml Tube Irrigant 350 ml 600 ml 780 ml Output Urine Total 400 ml 450 ml 450 ml # Bowel Movements 2 0 0 Objective Remarks GENERAL: Well-developed, cachectic and contracted. HEENT: Head is normocephalic without any lesions or masses noted. Facial features are symmetric. Eyes: Extraocular muscles are intact. Conjunctivae were clear. NECK: Trachea midline no deviation. CARDIAC: Regular rhythm, tachycardia noted. S1/S2 are heard. No murmurs gallops or rubs. LUNGS: Clear to auscultation bilaterally. No wheeze, rhonchi or rales. No use of accessory muscles on inspiration or expiration. ABDOMEN: Soft, nontender. Nondistended. Bowel sounds heard in all 4 quadrants. No organomegaly or masses. Negative rebound, negative guarding. PEG tube noted without any excoriation. EXTREMITIES: No edema, pulses are equal bilaterally. No cyanosis or clubbing. Procedures 07/19/16 EGD with PEG tube placement 09/27/16 colonoscopy Urinary Catheter: Yes Assessment to: Continue Kowalski insert reason: Obstruction/Retention Date of Insertion: Jun 02, 2017 Vascular Central Line Catheter: No A/P Assessment and Plan Neuro-Behcet, history of frontal lobe CVA, encephalopathy, history of meningitis , Blurred vision/double vision, urinary retention, chronic No new changes on imaging. Patient was followed by neurology. Aphasic at baseline. Continue Imuran, prednisone EEG shows mild to moderate slowing at times of various depending on the epoch , there was no epileptic activity seen Continue PT/OT Palliative care still following the patient. 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 06/02/17 --Decreased oral intake and dysphagia on initial presentation Speech therapy evaluated patient. S/P barium swallow. Patient with severe dysphagia. GI was consulted and PEG tube was placed. Patient was intolerant to bolus feeding Dietary reconsulted and made recommendations Oral thrush Likely secondary to recent antibiotic use Continue nystatin for 2 weeks Coccyx decubitus. Ankle ulceration Wound care nurse is following the patient for management Patient with specialty bed Mood disorder, depression Psychiatry evaluated patient and made recommendations Prozac 40 mg daily Seroquel 25 mg at bedtime Diabetes Glucose continues to be well controlled, DVT Prophylaxis: Lovenox, TEDs/SCDs. Medical records were reviewed. No change in current treatment plan. Awaiting case management for discharge planning Discharge Planning Case management for discharge planning, Ede Richardson Jun 30, 2017 08:46
[2017-06-30] MEDS: SENNOSIDES SYRUP 8.8 MG/5 ML CUP PEG SCH (09:00)
[2017-06-30] MEDS: JUVEN POWDER 1 PACK G-TUBE SCH ×2 (09:00→21:55)
[2017-06-30] MEDS: ENOXAPARIN SODIUM 40 MG/0.4 ML SYRINGE SQ SCH (09:47)
[2017-06-30] MEDS: FLUoxetine HCL LIQUID 20 MG/5 ML CUP PEG SCH (09:47)
[2017-06-30] MEDS: LANSOPRAZOLE SOLUTAB 30 MG TAB PEG SCH ×2 (09:48→21:55)
[2017-06-30] MEDS: LACTOBACILLUS ACIDOPHILUS TAB PEG SCH ×2 (09:48→21:55)
[2017-06-30] MEDS: predniSONE 20 MG TAB PEG SCH (09:48)
[2017-06-30 20:46] VITALS: BP 125/76; PULSE 80; RESP 16; TEMP 98.8; O2SAT 95
[2017-06-30] MEDS: QUEtiapine FUMARATE 25 MG TAB PO SCH (21:55)
[2017-07-01] MEDS: azaTHIOprine 50 MG TAB PEG SCH ×2 (05:48→17:31)
[2017-07-01 07:23] VITALS: BP 144/63; PULSE 126; RESP 26; TEMP 100; O2SAT 96
--- NOTE | 2017-07-01 08:42 | HHI.PR ---
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 Patient with low-grade fever this morning. Patient denies any symptoms. Discussed with respiratory therapy the patient did have some phlegm today and sinus congestion. They did do suctioning patient had clear mucus. Objective Vitals Vital Signs Date Time Temp Pulse Resp B/P (MAP) Pulse Ox O2 Delivery O2 Flow Rate FiO2 07/01/17 07:23 100.0 126 26 144/63 (90) 96 06/30/17 20:46 98.8 80 16 125/76 (92) 95 I/O 06/30/17 06/30/17 06/30/17 07/01/17 07/01/17 07/01/17 07:00 15:00 23:00 07:00 15:00 23:00 Intake Total 1340 ml Output Total 450 ml 350 ml 450 ml Balance 890 ml -350 ml -450 ml Intake Oral 0 ml Tube Feeding 560 ml Tube Irrigant 780 ml Output Urine Total 450 ml 350 ml 450 ml # Bowel Movements 0 1 Objective Remarks GENERAL: Well-developed, cachectic and contracted. HEENT: Head is normocephalic without any lesions or masses noted. Facial features are symmetric. Eyes: Extraocular muscles are intact. Conjunctivae were clear. NECK: Trachea midline no deviation. CARDIAC: Regular rhythm, tachycardia noted. S1/S2 are heard. No murmurs gallops or rubs. LUNGS: Clear to auscultation bilaterally. No wheeze, rhonchi or rales. No use of accessory muscles on inspiration or expiration. ABDOMEN: Soft, nontender. Nondistended. Bowel sounds heard in all 4 quadrants. No organomegaly or masses. Negative rebound, negative guarding. PEG tube noted without any excoriation. EXTREMITIES: No edema, pulses are equal bilaterally. No cyanosis or clubbing. Procedures 07/19/16 EGD with PEG tube placement 09/27/16 colonoscopy Urinary Catheter: Yes Assessment to: Continue Kowalski insert reason: Obstruction/Retention Date of Insertion: Jul 01, 2017 Vascular Central Line Catheter: No A/P Assessment and Plan Low-grade fever Could be secondary to chronic indwelling Kowalski, Kowalski is changed monthly, however it is been noticed that he develops constitutional signs of infection around 3 weeks after Kowalski changed CBC does show low-grade leukocytosis, could be secondary to mild dehydration as seen on BMP Replaced Kowalski and obtained clean urine sample Urinalysis does indicate urinary tract infection, however does appear to be not as severe as previous, follow urine culture just medications appropriately Start Levaquin 500 mg by mouth daily Neuro-Behcet, history of frontal lobe CVA, encephalopathy, history of meningitis , Blurred vision/double vision, urinary retention, chronic No new changes on imaging. Patient was followed by neurology. Aphasic at baseline. Continue Imuran, prednisone EEG shows mild to moderate slowing at times of various depending on the epoch , there was no epileptic activity seen Continue PT/OT Palliative care still following the patient. 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 06/02/17 --Decreased oral intake and dysphagia on initial presentation Speech therapy evaluated patient. S/P barium swallow. Patient with severe dysphagia. GI was consulted and PEG tube was placed. Patient was intolerant to bolus feeding Dietary reconsulted and made recommendations Oral thrush Likely secondary to recent antibiotic use Continue nystatin for 2 weeks Coccyx decubitus. Ankle ulceration Wound care nurse is following the patient for management Patient with specialty bed Mood disorder, depression Psychiatry evaluated patient and made recommendations Prozac 40 mg daily Seroquel 25 mg at bedtime Diabetes Glucose continues to be well controlled, DVT Prophylaxis: Lovenox, TEDs/SCDs. Discharge Planning Case management for discharge planning, Ede Richardson Jul 01, 2017 08:42
[2017-07-01 08:47] LABS: AUTOMATED NEUTROPHIL # 7.5 TH/MM3 (1.8-7.7); BASOPHIL # 0.1 TH/MM3 (0-0.2); BASOPHIL % 0.7 % (0.0-2.0); EOSINOPHIL # 0.1 TH/MM3 (0-0.4); EOSINOPHIL % 0.4 % (0.0-4.0); HEMATOCRIT 46.3 % (39.0-51.0); HEMOGLOBIN 14.6 GM/DL (13.0-17.0); LYMPH % 34.8 % (9.0-44.0); LYMPHOCYTE # 4.4 TH/MM3 (1.0-4.8); MEAN CELL VOLUME 95.9 FL (80.0-100.0); MEAN CORPUSCULAR HEMOGLOBIN 30.2 PG (27.0-34.0); MEAN CORPUSCULAR HGB CONC 31.5 % (32.0-36.0); MEAN PLATELET VOLUME 9.8 FL (7.0-11.0); MONO % 4.9 % (0.0-8.0); MONOCYTE # 0.6 TH/MM3 (0-0.9); NEUT % 59.2 % (16.0-70.0); PLATELET COUNT 297 TH/MM3 (150-450); RED BLOOD COUNT 4.83 MIL/MM3 (4.50-5.90); RED CELL DISTRIBUTION WIDTH 15.7 % (11.6-17.2); WHITE BLOOD COUNT 12.7 TH/MM3 (4.0-11.0)
[2017-07-01 08:56] LABS: CREATININE 1.3 MG/DL (0.60-1.30)
[2017-07-01] MEDS: JUVEN POWDER 1 PACK G-TUBE SCH ×2 (09:00→21:26)
[2017-07-01] MEDS: SENNOSIDES SYRUP 8.8 MG/5 ML CUP PEG SCH (09:00)
[2017-07-01 09:29] LABS: BILIRUBIN, URINE NEG (NEG); BLOOD, URINE MOD (NEG); GLUCOSE,URINE NEG (NEG); KETONE, URINE NEG (NEG); NITRITE,URINE NEG (NEG); PH, URINE 6.5 (5.0-8.5); URINE LEUKOCYTE ESTERASE SMALL (NEG)
[2017-07-01 09:31] LABS: URINE COLOR YELLOW (YELLW/STRAW)
[2017-07-01 09:33] LABS: BACTERIA, URINE MOD /hpf
[2017-07-01 09:34] LABS: AMORPHOUS SEDIMENT, URINE FEW; SQUAMOUS EPITHELIAL CELL URINE 0-5 /hpf (0-5); TRANSITIONAL EPI CELLS, URINE 0-5 /hpf; WHITE BLOOD CELL CLUMPS MOD
[2017-07-01] MEDS: LANSOPRAZOLE SOLUTAB 30 MG TAB PEG SCH ×2 (10:19→21:26)
[2017-07-01] MEDS: FLUoxetine HCL LIQUID 20 MG/5 ML CUP PEG SCH (10:19)
[2017-07-01] MEDS: LACTOBACILLUS ACIDOPHILUS TAB PEG SCH ×2 (10:21→21:26)
[2017-07-01] MEDS: predniSONE 20 MG TAB PEG SCH (10:22)
[2017-07-01] MEDS: ENOXAPARIN SODIUM 40 MG/0.4 ML SYRINGE SQ SCH (10:22)
[2017-07-01] MEDS: SODIUM CHLOR 0.9% 1000 ML INJ 1,000 ML IV SCH (12:04)
[2017-07-01 14:05] VITALS: BP 119/87; PULSE 106; RESP 16; TEMP 97.5; O2SAT 98
[2017-07-01 17:25] VITALS: BP 121/87; PULSE 93; RESP 18; TEMP 96.7; O2SAT 95
[2017-07-01] MEDS: LEVOFLOXACIN ORAL SOLN 2500 MG/100 ML BOTTLE PEG SCH (17:31)
[2017-07-01 20:00] VITALS: BP 120/67; PULSE 94; RESP 20; TEMP 96.6; O2SAT 98
[2017-07-01 20:11] VITALS: O2SAT 99
[2017-07-01] MEDS: QUEtiapine FUMARATE 25 MG TAB PO SCH (21:26)
[2017-07-02] MEDS: SODIUM CHLOR 0.9% 1000 ML INJ 1,000 ML IV SCH (00:04)
[2017-07-02] MEDS: azaTHIOprine 50 MG TAB PEG SCH ×2 (05:48→19:18)
[2017-07-02 06:45] LABS: AUTOMATED NEUTROPHIL # 6.9 TH/MM3 (1.8-7.7); BASOPHIL # 0.2 TH/MM3 (0-0.2); BASOPHIL % 2.1 % (0.0-2.0); EOSINOPHIL % 0.3 % (0.0-4.0); HEMATOCRIT 39.6 % (39.0-51.0); LYMPH % 21.6 % (9.0-44.0); LYMPHOCYTE # 2.1 TH/MM3 (1.0-4.8); MEAN CELL VOLUME 95.3 FL (80.0-100.0); MEAN CORPUSCULAR HEMOGLOBIN 29.8 PG (27.0-34.0); MEAN CORPUSCULAR HGB CONC 31.3 % (32.0-36.0); MEAN PLATELET VOLUME 9.9 FL (7.0-11.0); MONO % 5.7 % (0.0-8.0); MONOCYTE # 0.6 TH/MM3 (0-0.9); NEUT % 70.3 % (16.0-70.0); PLATELET COUNT 177 TH/MM3 (150-450); RED BLOOD COUNT 4.16 MIL/MM3 (4.50-5.90); RED CELL DISTRIBUTION WIDTH 15.1 % (11.6-17.2); WHITE BLOOD COUNT 9.8 TH/MM3 (4.0-11.0)
[2017-07-02 06:55] LABS: HEMOGLOBIN 12.4 GM/DL (13.0-17.0)
[2017-07-02 07:18] LABS: BICARBONATE 24.2 MEQ/L (21.0-32.0); CREATININE 0.7 MG/DL (0.60-1.30); MAGNESIUM 2.2 MG/DL (1.5-2.5)
[2017-07-02 07:19] LABS: CALCIUM 8.6 MG/DL (8.5-10.1)
[2017-07-02 09:04] VITALS: BP 119/66; PULSE 90; TEMP 95.9; O2SAT 96
--- NOTE | 2017-07-02 09:43 | HHI.PR ---
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 Patient resting comfortably. Patient denies any new complaints. Afebrile Objective Vitals Vital Signs Date Time Temp Pulse Resp B/P (MAP) Pulse Ox O2 Delivery O2 Flow Rate FiO2 07/02/17 09:04 95.9 90 119/66 (83) 96 07/01/17 20:11 99 21 07/01/17 20:00 96.6 94 20 120/67 (84) 98 07/01/17 17:25 96.7 93 18 121/87 (98) 95 07/01/17 14:05 97.5 106 16 119/87 (98) 98 I/O 07/01/17 07/01/17 07/01/17 07/02/17 07/02/17 07/02/17 07:00 15:00 23:00 07:00 15:00 23:00 Intake Total 300 ml 2296 ml 1597 ml Output Total 450 ml 600 ml 700 ml Balance -450 ml 300 ml 1696 ml 897 ml IV Total 806 ml 897 ml Tube Feeding 100 ml 750 ml 400 ml Tube Irrigant 200 ml 740 ml 300 ml Output Urine Total 450 ml 600 ml 700 ml # Bowel Movements 1 1 Result Diagram: 07/02/1728 07/02/17627 Objective Remarks GENERAL: Well-developed, cachectic and contracted. HEENT: Head is normocephalic without any lesions or masses noted. Facial features are symmetric. Eyes: Extraocular muscles are intact. Conjunctivae were clear. NECK: Trachea midline no deviation. CARDIAC: Regular rhythm, tachycardia noted. S1/S2 are heard. No murmurs gallops or rubs. LUNGS: Clear to auscultation bilaterally. No wheeze, rhonchi or rales. No use of accessory muscles on inspiration or expiration. ABDOMEN: Soft, nontender. Nondistended. Bowel sounds heard in all 4 quadrants. No organomegaly or masses. Negative rebound, negative guarding. PEG tube noted without any excoriation. EXTREMITIES: No edema, pulses are equal bilaterally. No cyanosis or clubbing. Procedures 07/19/16 EGD with PEG tube placement 09/27/16 colonoscopy Urinary Catheter: Yes Assessment to: Continue Kowalski insert reason: Obstruction/Retention Date of Insertion: Jul 01, 2017 Vascular Central Line Catheter: No A/P Assessment and Plan Low-grade fever , resolved Could be secondary to chronic indwelling Kowalski, Kowalski is changed monthly, however it is been noticed that he develops constitutional signs of infection around 3 weeks after Kowalski changed CBC does show low-grade leukocytosis, could be secondary to mild dehydration as seen on BMP, which has improved with IV hydration Replaced Kowalski and obtained clean urine sample Urinalysis does indicate urinary tract infection, however does appear to be not as severe as previous, follow urine culture just medications appropriately Continue Levaquin 500 mg by mouth daily Neuro-Behcet, history of frontal lobe CVA, encephalopathy, history of meningitis , Blurred vision/double vision, urinary retention, chronic No new changes on imaging. Patient was followed by neurology. Aphasic at baseline. Continue Imuran, prednisone EEG shows mild to moderate slowing at times of various depending on the epoch , there was no epileptic activity seen Continue PT/OT Palliative care still following the patient. 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 06/02/17 --Decreased oral intake and dysphagia on initial presentation Speech therapy evaluated patient. S/P barium swallow. Patient with severe dysphagia. GI was consulted and PEG tube was placed. Patient was intolerant to bolus feeding Dietary reconsulted and made recommendations Oral thrush Likely secondary to recent antibiotic use Continue nystatin for 2 weeks Coccyx decubitus. Ankle ulceration Wound care nurse is following the patient for management Patient with specialty bed Mood disorder, depression Psychiatry evaluated patient and made recommendations Prozac 40 mg daily Seroquel 25 mg at bedtime Diabetes Glucose continues to be well controlled, DVT Prophylaxis: Lovenox, TEDs/SCDs. Discharge Planning Case management for discharge planning, Ede Richardson Jul 02, 2017 09:43
[2017-07-02] MEDS: JUVEN POWDER 1 PACK G-TUBE SCH ×2 (10:14→21:59)
[2017-07-02] MEDS: predniSONE 20 MG TAB PEG SCH (10:15)
[2017-07-02] MEDS: LACTOBACILLUS ACIDOPHILUS TAB PEG SCH ×2 (10:16→21:59)
[2017-07-02] MEDS: FLUoxetine HCL LIQUID 20 MG/5 ML CUP PEG SCH (10:16)
[2017-07-02] MEDS: SENNOSIDES SYRUP 8.8 MG/5 ML CUP PEG SCH (10:17)
[2017-07-02] MEDS: LEVOFLOXACIN ORAL SOLN 2500 MG/100 ML BOTTLE PEG SCH (10:18)
[2017-07-02] MEDS: LANSOPRAZOLE SOLUTAB 30 MG TAB PEG SCH ×2 (10:19→21:59)
[2017-07-02] MEDS: ENOXAPARIN SODIUM 40 MG/0.4 ML SYRINGE SQ SCH (10:19)
[2017-07-02 19:15] VITALS: BP 130/91; PULSE 85; RESP 16; TEMP 97.6; O2SAT 97
[2017-07-02] MEDS: QUEtiapine FUMARATE 25 MG TAB PO SCH (21:59)
[2017-07-03] MEDS: azaTHIOprine 50 MG TAB PEG SCH ×2 (05:39→17:46)
[2017-07-03 07:33] VITALS: O2SAT 95
[2017-07-03 08:00] VITALS: BP 123/87; PULSE 89; RESP 12; TEMP 96.7; O2SAT 96
--- NOTE | 2017-07-03 08:10 | HHI.PR ---
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 Patient denies any new complaints. following urine culture. afebrile Objective Vitals Vital Signs Date Time Temp Pulse Resp B/P (MAP) Pulse Ox O2 Delivery O2 Flow Rate FiO2 07/03/17 07:33 95 21 07/02/17 19:15 97.6 85 16 130/91 (104) 97 07/02/17 09:04 95.9 90 119/66 (83) 96 I/O 07/02/17 07/02/17 07/02/17 07/03/17 07/03/17 07/03/17 07:00 15:00 23:00 07:00 15:00 23:00 Intake Total 1597 ml 0 ml 1326 ml 654 ml Output Total 700 ml 250 ml 450 ml Balance 897 ml 0 ml 1076 ml 204 ml Intake Oral 0 ml IV Total 897 ml 300 ml Tube Feeding 400 ml 546 ml 354 ml Tube Irrigant 300 ml 480 ml 300 ml Output Urine Total 700 ml 250 ml 450 ml # Bowel Movements 1 Result Diagram: 07/02/1728 07/02/17627 Objective Remarks GENERAL: Well-developed, cachectic and contracted. HEENT: Head is normocephalic without any lesions or masses noted. Facial features are symmetric. Eyes: Extraocular muscles are intact. Conjunctivae were clear. NECK: Trachea midline no deviation. CARDIAC: Regular rhythm, tachycardia noted. S1/S2 are heard. No murmurs gallops or rubs. LUNGS: Clear to auscultation bilaterally. No wheeze, rhonchi or rales. No use of accessory muscles on inspiration or expiration. ABDOMEN: Soft, nontender. Nondistended. Bowel sounds heard in all 4 quadrants. No organomegaly or masses. Negative rebound, negative guarding. PEG tube noted without any excoriation. EXTREMITIES: No edema, pulses are equal bilaterally. No cyanosis or clubbing. Procedures 07/19/16 EGD with PEG tube placement 09/27/16 colonoscopy Urinary Catheter: Yes Assessment to: Continue Kowalski insert reason: Obstruction/Retention Date of Insertion: Jul 01, 2017 Vascular Central Line Catheter: No A/P Assessment and Plan Low-grade fever , resolved Could be secondary to chronic indwelling Kowalski, Kowalski is changed monthly, however it is been noticed that he develops constitutional signs of infection around 3 weeks after Kowalski changed CBC does show low-grade leukocytosis, could be secondary to mild dehydration as seen on BMP, which has improved with IV hydration Replaced Kowalski and obtained clean urine sample Urinalysis does indicate urinary tract infection, Urine culture indicating immature growth, continue to follow until final for appropriate antibiotics Continue Levaquin 500 mg by mouth daily Neuro-Behcet, history of frontal lobe CVA, encephalopathy, history of meningitis , Blurred vision/double vision, urinary retention, chronic No new changes on imaging. Patient was followed by neurology. Aphasic at baseline. Continue Imuran, prednisone EEG shows mild to moderate slowing at times of various depending on the epoch , there was no epileptic activity seen Continue PT/OT Palliative care still following the patient. 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 06/02/17 --Decreased oral intake and dysphagia on initial presentation Speech therapy evaluated patient. S/P barium swallow. Patient with severe dysphagia. GI was consulted and PEG tube was placed. Patient was intolerant to bolus feeding Dietary reconsulted and made recommendations Oral thrush Likely secondary to recent antibiotic use Continue nystatin for 2 weeks Coccyx decubitus. Ankle ulceration Wound care nurse is following the patient for management Patient with specialty bed Mood disorder, depression Psychiatry evaluated patient and made recommendations Prozac 40 mg daily Seroquel 25 mg at bedtime Diabetes Glucose continues to be well controlled, DVT Prophylaxis: Lovenox, TEDs/SCD Medical records were reviewed. Awaiting case management for discharge planning No change in current treatment plan. Discharge Planning Case management for discharge planning, Ede Richardson Jul 03, 2017 08:10
[2017-07-03] MEDS: JUVEN POWDER 1 PACK G-TUBE SCH ×2 (09:00→21:13)
[2017-07-03] MEDS: SENNOSIDES SYRUP 8.8 MG/5 ML CUP PEG SCH (09:40)
[2017-07-03] MEDS: FLUoxetine HCL LIQUID 20 MG/5 ML CUP PEG SCH (09:40)
[2017-07-03] MEDS: LEVOFLOXACIN ORAL SOLN 2500 MG/100 ML BOTTLE PEG SCH (09:40)
[2017-07-03] MEDS: predniSONE 20 MG TAB PEG SCH (09:40)
[2017-07-03] MEDS: ENOXAPARIN SODIUM 40 MG/0.4 ML SYRINGE SQ SCH (09:40)
[2017-07-03] MEDS: LANSOPRAZOLE SOLUTAB 30 MG TAB PEG SCH ×2 (09:40→21:13)
[2017-07-03] MEDS: LACTOBACILLUS ACIDOPHILUS TAB PEG SCH ×2 (09:40→21:13)
[2017-07-03 20:00] VITALS: BP 130/86; PULSE 72; RESP 20; TEMP 96.7; O2SAT 99
[2017-07-03] MEDS: QUEtiapine FUMARATE 25 MG TAB PO SCH (21:13)
[2017-07-04] MEDS: azaTHIOprine 50 MG TAB PEG SCH ×2 (06:23→17:42)
[2017-07-04 08:00] VITALS: BP 134/58; PULSE 79; RESP 18; TEMP 96.2; O2SAT 96
[2017-07-04] MEDS: FLUoxetine HCL LIQUID 20 MG/5 ML CUP PEG SCH (08:09)
[2017-07-04] MEDS: LEVOFLOXACIN ORAL SOLN 2500 MG/100 ML BOTTLE PEG SCH (08:09)
[2017-07-04] MEDS: ENOXAPARIN SODIUM 40 MG/0.4 ML SYRINGE SQ SCH (08:09)
[2017-07-04] MEDS: LANSOPRAZOLE SOLUTAB 30 MG TAB PEG SCH ×2 (08:09→23:17)
[2017-07-04] MEDS: predniSONE 20 MG TAB PEG SCH (08:09)
[2017-07-04] MEDS: LACTOBACILLUS ACIDOPHILUS TAB PEG SCH ×2 (08:09→23:17)
[2017-07-04] MEDS: JUVEN POWDER 1 PACK G-TUBE SCH ×2 (08:10→23:16)
[2017-07-04] MEDS: SENNOSIDES SYRUP 8.8 MG/5 ML CUP PEG SCH (08:10)
--- NOTE | 2017-07-04 09:13 | HHI.PR ---
Subjective Remarks Follow-up neuro-Behcet's syndrome. Patient seen and examined, RN at bedside. No reports of any acute events overnight. Patient is awake and alert, denies any pain or discomfort. Patient is afebrile overnight. No signs stable. Urine culture growing group D enterococcus and Staphylococcus epidermidis. Objective Vitals Vital Signs Date Time Temp Pulse Resp B/P (MAP) Pulse Ox O2 Delivery O2 Flow Rate FiO2 07/03/17 20:00 96.7 72 20 130/86 (101) 99 I/O 07/03/17 07/03/17 07/03/17 07/04/17 07/04/17 07/04/17 07:00 15:00 23:00 07:00 15:00 23:00 Intake Total 654 ml 1380 ml 860 ml Output Total 450 ml 250 ml 900 ml Balance 204 ml 1130 ml -40 ml Intake Oral 0 ml Tube Feeding 354 ml 450 ml 560 ml Tube Irrigant 300 ml 480 ml 300 ml Other 450 ml Output Urine Total 450 ml 250 ml 900 ml # Bowel Movements 0 Result Diagram: 07/02/17 0628 07/02/17 0628 Imaging Last Impressions Chest X-Ray 06/01/17 1118 Signed Impressions: Service Date/Time: May 11:33 - CONCLUSION: Bibasilar patchy infiltrates. Gen Potter MD Hip Aspiration/Injection 10/08/16 0000 Signed Impressions: Service Date/Time: Tuesday, October 11, 2016 13:41 - CONCLUSION: Uncomplicated aspiration as above. Minimal fluid on the right. No identifiable fluid on the left Clayton Max MD Lower Extremity Ultrasound 10/06/16 0000 Signed Impressions: Service Date/Time: September 17:29 - CONCLUSION: Normal examination. Josafat Meyer MD CT Angiography 10/06/16 0000 Signed Impressions: Service Date/Time: September 20:31 - CONCLUSION: Minimal right upper lobe infiltrate and basilar atelectasis. No evidence of pulmonary embolism.. Josafat Meyer MD Abdomen/Pelvis CT 10/06/16 0000 Signed Impressions: Service Date/Time: September 20:31 - CONCLUSION: No evidence of pelvic abscess. Josafat Meyer MD Upper Extremity Ultrasound 09/28/16 Signed Impressions: Service Date/Time: Wednesday, September 28, 2016 19:15 - CONCLUSION: 1. Occlusive superficial thrombosis in the left cephalic vein near the antecubital fossa. No deep venous thrombosis. Sumit Bourgeois MD Renal Ultrasound 08/28/16 Signed Impressions: Service Date/Time: Sunday, August 28, 2016 20:03 - CONCLUSION: Mild increased echotexture of both kidneys. Baldev Vu MD Lumbar Puncture Fluoroscopy 08/17/16 Signed Impressions: Service Date/Time: Wednesday, August 17, 2016 12:26 - CONCLUSION: Uncomplicated fluoroscopically guided lumbar puncture. Vishal Beckford Jr., MD Brain MRI 08/17/16 Signed Impressions: Service Date/Time: Wednesday, August 17, 2016 13:28 - CONCLUSION: Remote long-standing areas of abnormality in the brainstem and middle cerebellar peduncle consistent with remote infarcts or contusion. No acute intracranial abnormality. Chacho Bright MD Abdomen X-Ray 08/17/16 Signed Impressions: Service Date/Time: Wednesday, August 17, 2016 13:02 - CONCLUSION: No evidence of obstruction. No MRI incompatible foreign body is identified. Chacho Bright MD Head CT 08/16/16 Signed Impressions: Service Date/Time: Tuesday, August 16, 2016 09:55 - CONCLUSION: Chronic ischemic changes left frontal lobe possibly from evidence of previous ventriculostomy placement, unchanged. No acute intracranial abnormality. Gen Potter MD Modified Barium Swallow 08/15/16 Signed Impressions: Service Date/Time: Monday, August 15, 2016 00:00 - CONCLUSION: See report above and speech pathology report Chacho Bright MD Objective Remarks GENERAL: Well-developed cachectic and contracted male patient in NAD. Awake and alert. Nodding appropriately. SKIN: Warm and dry. No rash. HEENT: Normocephalic. Atraumatic. Pupils equal and round. No scleral icterus. No injection or drainage. No nasal bleeding or discharge. Mucous membranes pink and moist. NECK: Supple. Trachea midline. CARDIOVASCULAR: Regular rate and rhythm. S1, S2 noted. No murmur appreciated. RESPIRATORY: No accessory muscle use. Course and rhonchi throughout lung lawson. Breath sounds equal bilaterally. GASTROINTESTINAL: Abdomen soft, non-tender, nondistended. Normoactive bowel sounds x4. No guarding. PEG tube noted, no erythema or drainage from site, c/d/ i. MUSCULOSKELETAL: No obvious deformities. Extremities without clubbing, cyanosis , or edema. 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: Chronic (2) Hospital acquired PNA ICD Code: J18.9 - Pneumonia, unspecified organism Status: Resolved (3) Sepsis ICD Code: A41.9 - Sepsis, unspecified organism Status: Resolved (4) Encephalopathy ICD Code: G93.40 - Encephalopathy, unspecified Status: Resolved (5) GI bleed ICD Code: K92.2 - Gastrointestinal hemorrhage, unspecified Status: Resolved (6) HCAP (healthcare-associated pneumonia) ICD Code: J18.9 - Pneumonia, unspecified organism Status: Resolved (7) UTI (urinary tract infection) ICD Code: N39.0 - Urinary tract infection, site not specified Status: Resolved (8) Leucocytosis ICD Code: D72.829 - Elevated white blood cell count, unspecified Status: Resolved (9) Fever ICD Code: R50.9 - Fever, unspecified Status: Resolved (10) Effusion of hip joint ICD Code: M25.459 - Effusion, unspecified hip Status: Acute (11) 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, unspecified Status: Acute (12) Blurred vision, bilateral ICD Code: H53.8 - Other visual disturbances Status: Acute (13) Bacterial conjunctivitis of left eye ICD Code: H10.9 - Unspecified conjunctivitis Assessment and Plan Low-grade fever , resolved Could be secondary to chronic indwelling Kowalski, Kowalski is changed monthly, however it is been noticed that he develops constitutional signs of infection around 3 weeks after Kowalski changed CBC does show low-grade leukocytosis, could be secondary to mild dehydration as seen on BMP, which has improved with IV hydration Replaced Kowalski and obtained clean urine sample (07/01/17). Urine culture growing group D enterococcus and Staphylococcus epidermidis. Will discontinue Levaquin 500 mg by mouth daily, not sensitive. Start on Vancomycin IV. 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 Neuro-Behcet, history of frontal lobe CVA, encephalopathy, history of meningitis , Blurred vision/double vision, urinary retention, chronic No new changes on imaging. Patient was followed by neurology. Aphasic at baseline. Continue Imuran, prednisone EEG shows mild to moderate slowing at times of various depending on the epoch , there was no epileptic activity seen Continue PT/OT Palliative care still following the patient. 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 07/01/17 --Decreased oral intake and dysphagia on initial presentation Speech therapy evaluated patient. S/P barium swallow. Patient with severe dysphagia. GI was consulted and PEG tube was placed. Patient was intolerant to bolus feeding Dietary reconsulted and made recommendations Oral thrush Likely secondary to recent antibiotic use Continue nystatin for 2 weeks Coccyx decubitus. Ankle ulceration Wound care nurse is following the patient for management Patient with specialty bed Mood disorder, depression Psychiatry evaluated patient and made recommendations Prozac 40 mg daily Seroquel 25 mg at bedtime Diabetes Glucose continues to be well controlled, DVT Prophylaxis: Lovenox, TEDs/SCD Medical records were reviewed. Awaiting case management for discharge planning No change in current treatment plan. Discharge Planning Case management assisting. Problem Qualifiers (1) GI bleed: (2) UTI (urinary tract infection): (3) Effusion of hip joint: Dotty Pacheco Jul 04, 2017 09:13
[2017-07-04] MEDS: VANCOMYCIN INJ 1,250 MG in SODIUM CHLOR 0.9% 250 ML INJ 250 ML IV SCH ×2 (10:20→23:20)
[2017-07-04 20:00] VITALS: BP 117/87; PULSE 73; RESP 20; TEMP 96.8; O2SAT 98
[2017-07-04] MEDS: QUEtiapine FUMARATE 25 MG TAB PO SCH (23:17)
[2017-07-05] MEDS: azaTHIOprine 50 MG TAB PEG SCH ×2 (05:36→17:25)
[2017-07-05 05:56] LABS: AUTOMATED NEUTROPHIL # 5.8 TH/MM3 (1.8-7.7); BASOPHIL # 0.1 TH/MM3 (0-0.2); BASOPHIL % 0.6 % (0.0-2.0); EOSINOPHIL # 0.1 TH/MM3 (0-0.4); EOSINOPHIL % 0.6 % (0.0-4.0); HEMATOCRIT 38.4 % (39.0-51.0); HEMOGLOBIN 12.4 GM/DL (13.0-17.0); LYMPH % 26.1 % (9.0-44.0); LYMPHOCYTE # 2.2 TH/MM3 (1.0-4.8); MEAN CELL VOLUME 93.3 FL (80.0-100.0); MEAN CORPUSCULAR HEMOGLOBIN 30.2 PG (27.0-34.0); MEAN CORPUSCULAR HGB CONC 32.4 % (32.0-36.0); MEAN PLATELET VOLUME 8.9 FL (7.0-11.0); MONO % 4.9 % (0.0-8.0); MONOCYTE # 0.4 TH/MM3 (0-0.9); NEUT % 67.8 % (16.0-70.0); PLATELET COUNT 228 TH/MM3 (150-450); RED BLOOD COUNT 4.11 MIL/MM3 (4.50-5.90); RED CELL DISTRIBUTION WIDTH 15.2 % (11.6-17.2); WHITE BLOOD COUNT 8.6 TH/MM3 (4.0-11.0)
[2017-07-05 06:13] LABS: BICARBONATE 28.9 MEQ/L (21.0-32.0); CALCIUM 9.1 MG/DL (8.5-10.1)
[2017-07-05 06:17] LABS: CREATININE 0.7 MG/DL (0.60-1.30)
[2017-07-05 08:00] VITALS: BP 121/58; PULSE 96; RESP 20; TEMP 98; O2SAT 96
[2017-07-05] MEDS: JUVEN POWDER 1 PACK G-TUBE SCH ×2 (09:00→22:06)
[2017-07-05] MEDS: predniSONE 20 MG TAB PEG SCH (09:16)
[2017-07-05] MEDS: LANSOPRAZOLE SOLUTAB 30 MG TAB PEG SCH ×2 (09:16→22:06)
[2017-07-05] MEDS: LACTOBACILLUS ACIDOPHILUS TAB PEG SCH ×2 (09:16→22:06)
[2017-07-05] MEDS: SENNOSIDES SYRUP 8.8 MG/5 ML CUP PEG SCH (09:17)
[2017-07-05] MEDS: ENOXAPARIN SODIUM 40 MG/0.4 ML SYRINGE SQ SCH (09:17)
[2017-07-05] MEDS: FLUoxetine HCL LIQUID 20 MG/5 ML CUP PEG SCH (09:17)
--- NOTE | 2017-07-05 09:26 | HHI.PR ---
Subjective Remarks Follow-up neuro-Behcet's syndrome. Patient seen and examined, RN and [employer] at bedside cleaning outpatient. Patient denies any pain or discomfort. Lying in bed comfortably. No reports of any acute events overnight. Afebrile. Vital signs stable. Objective Vitals Vital Signs Date Time Temp Pulse Resp B/P (MAP) Pulse Ox O2 Delivery O2 Flow Rate FiO2 07/04/17 20:00 96.8 73 20 117/87 (97) 98 I/O 07/04/17 07/04/17 07/04/17 07/05/17 07/05/17 07/05/17 07:00 15:00 23:00 07:00 15:00 23:00 Intake Total 860 ml Output Total 900 ml 250 ml 900 ml Balance -40 ml -250 ml -900 ml Intake Oral 0 ml Tube Feeding 560 ml Tube Irrigant 300 ml Output Urine Total 900 ml 250 ml 900 ml # Bowel Movements 2 Result Diagram: 07/05/17 0545 07/05/17 0545 Imaging Last Impressions Chest X-Ray 06/01/17 1118 Signed Impressions: Service Date/Time: May 11:33 - CONCLUSION: Bibasilar patchy infiltrates. Gen Potter MD Hip Aspiration/Injection 10/08/16 0000 Signed Impressions: Service Date/Time: Tuesday, October 11, 2016 13:41 - CONCLUSION: Uncomplicated aspiration as above. Minimal fluid on the right. No identifiable fluid on the left Clayton Max MD Lower Extremity Ultrasound 10/06/16 0000 Signed Impressions: Service Date/Time: September 17:29 - CONCLUSION: Normal examination. Josafat Meyer MD CT Angiography 10/06/16 0000 Signed Impressions: Service Date/Time: September 20:31 - CONCLUSION: Minimal right upper lobe infiltrate and basilar atelectasis. No evidence of pulmonary embolism.. Josafat Meyer MD Abdomen/Pelvis CT 10/06/16 0000 Signed Impressions: Service Date/Time: September 20:31 - CONCLUSION: No evidence of pelvic abscess. Josafat Meyer MD Upper Extremity Ultrasound 09/28/16 0000 Signed Impressions: Service Date/Time: Wednesday, September 28, 2016 19:15 - CONCLUSION: 1. Occlusive superficial thrombosis in the left cephalic vein near the antecubital fossa. No deep venous thrombosis. Sumit Bourgeois MD Renal Ultrasound 08/28/16 Signed Impressions: Service Date/Time: Sunday, August 28, 2016 20:03 - CONCLUSION: Mild increased echotexture of both kidneys. Baldev Vu MD Lumbar Puncture Fluoroscopy 08/17/16 Signed Impressions: Service Date/Time: Wednesday, August 17, 2016 12:26 - CONCLUSION: Uncomplicated fluoroscopically guided lumbar puncture. Vishal Beckford Jr., MD Brain MRI 08/17/16 Signed Impressions: Service Date/Time: Wednesday, August 17, 2016 13:28 - CONCLUSION: Remote long-standing areas of abnormality in the brainstem and middle cerebellar peduncle consistent with remote infarcts or contusion. No acute intracranial abnormality. Chacho Bright MD Abdomen X-Ray 08/17/16 Signed Impressions: Service Date/Time: Wednesday, August 17, 2016 13:02 - CONCLUSION: No evidence of obstruction. No MRI incompatible foreign body is identified. Chacho Bright MD Head CT 08/16/16 Signed Impressions: Service Date/Time: Tuesday, August 16, 2016 09:55 - CONCLUSION: Chronic ischemic changes left frontal lobe possibly from evidence of previous ventriculostomy placement, unchanged. No acute intracranial abnormality. Gen Potter MD Modified Barium Swallow 08/15/16 Signed Impressions: Service Date/Time: Monday, August 15, 2016 00:00 - CONCLUSION: See report above and speech pathology report Chacho Bright MD Objective Remarks GENERAL: Well-developed cachectic and contracted male patient in NAD. Awake and alert. Nodding appropriately. SKIN: Warm and dry. No rash. HEENT: Normocephalic. Atraumatic. Pupils equal and round. No scleral icterus. No injection or drainage. No nasal bleeding or discharge. Mucous membranes pink and moist. NECK: Supple. Trachea midline. CARDIOVASCULAR: Regular rate and rhythm. S1, S2 noted. No murmur appreciated. RESPIRATORY: No accessory muscle use. Course and rhonchi throughout lung lawson. Breath sounds equal bilaterally. GASTROINTESTINAL: Abdomen soft, non-tender, nondistended. Normoactive bowel sounds x4. No guarding. PEG tube noted, no erythema or drainage from site, c/d/ i. MUSCULOSKELETAL: No obvious deformities. Extremities without clubbing, cyanosis , or edema. Procedures 07/19/16 EGD with PEG tube placement 09/27/16 colonoscopy Date of Insertion: Jul 01, 2017 A/P Problem List: (1) Neurologic type Behcet's syndrome ICD Code: M35.2 - Behcet's disease Status: Chronic (2) Hospital acquired PNA ICD Code: J18.9 - Pneumonia, unspecified organism Status: Resolved (3) Sepsis ICD Code: A41.9 - Sepsis, unspecified organism Status: Resolved (4) Encephalopathy ICD Code: G93.40 - Encephalopathy, unspecified Status: Resolved (5) GI bleed ICD Code: K92.2 - Gastrointestinal hemorrhage, unspecified Status: Resolved (6) HCAP (healthcare-associated pneumonia) ICD Code: J18.9 - Pneumonia, unspecified organism Status: Resolved (7) UTI (urinary tract infection) ICD Code: N39.0 - Urinary tract infection, site not specified Status: Resolved (8) Leucocytosis ICD Code: D72.829 - Elevated white blood cell count, unspecified Status: Resolved (9) Fever ICD Code: R50.9 - Fever, unspecified Status: Resolved (10) Effusion of hip joint ICD Code: M25.459 - Effusion, unspecified hip Status: Acute (11) 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, unspecified Status: Acute (12) Blurred vision, bilateral ICD Code: H53.8 - Other visual disturbances Status: Acute (13) Bacterial conjunctivitis of left eye ICD Code: H10.9 - Unspecified conjunctivitis Assessment and Plan Low-grade fever , resolved Could be secondary to chronic indwelling Kowalski, Kowalski is changed monthly, however it is been noticed that he develops constitutional signs of infection around 3 weeks after Kowalski changed CBC does show low-grade leukocytosis, could be secondary to mild dehydration as seen on BMP, which has improved with IV hydration Replaced Kowalski and obtained clean urine sample (07/01/17). Urine culture growing group D enterococcus and Staphylococcus epidermidis. Will discontinue Levaquin 500 mg by mouth daily, not sensitive. Start on Vancomycin IV. 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 Awaiting ID to see patient. Neuro-Behcet, history of frontal lobe CVA, encephalopathy, history of meningitis , Blurred vision/double vision, urinary retention, chronic No new changes on imaging. Patient was followed by neurology. Aphasic at baseline. Continue Imuran, prednisone EEG shows mild to moderate slowing at times of various depending on the epoch , there was no epileptic activity seen Continue PT/OT Palliative care still following the patient. 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 07/01/17 --Decreased oral intake and dysphagia on initial presentation Speech therapy evaluated patient. S/P barium swallow. Patient with severe dysphagia. GI was consulted and PEG tube was placed. Patient was intolerant to bolus feeding Dietary reconsulted and made recommendations Oral thrush Likely secondary to recent antibiotic use Continue nystatin for 2 weeks Coccyx decubitus. Ankle ulceration Wound care nurse is following the patient for management Patient with specialty bed Mood disorder, depression Psychiatry evaluated patient and made recommendations Prozac 40 mg daily Seroquel 25 mg at bedtime Diabetes Glucose continues to be well controlled, DVT Prophylaxis: Lovenox, TEDs/SCD Medical records were reviewed. Awaiting case management for discharge planning No change in current treatment plan. Discharge Planning Case management assisting. Problem Qualifiers (1) GI bleed: (2) UTI (urinary tract infection): (3) Effusion of hip joint: Dotty Pacheco Jul 05, 2017 09:26
[2017-07-05] MEDS: VANCOMYCIN INJ 1,250 MG in SODIUM CHLOR 0.9% 250 ML INJ 250 ML IV SCH ×2 (09:31→22:07)
--- NOTE | 2017-07-05 10:42 | PD.WCN.NOT ---
Wound Consult Description: Follow up on 3rd floor [facility] for R lateral malleolus wound . Communicated with: APRYL Valencia [facility] Recommendation: 1) Please cleanse wound with normal saline pat dry.Skin prep periwound 2) Apply Calazime to open area cover with dry boarder dressing 3) Change every 4-7 days or as needed for dislodgement Additional Information: Patient was seen on 3rd floor [facility] by handbook writer for follow up of R lateral malleolus .Wound measures 0.5cm x 1cm x 0.2cm pink tissue present in wound bed. Wound is without active drainage or odor. Calcium (Alginate) was removed from wound bed .Wound was cleansed with wound cleanser and patted dry.Calazime applied to open area covered with dry boarder gauze signed and dated.Patient tolerated wound care well.Wound is stable. Arleen Gibbs [facility] Jul 05, 2017 10:42
[2017-07-05 20:00] VITALS: BP 100/65; PULSE 78; RESP 16; TEMP 96.9; O2SAT 96
[2017-07-05] MEDS: QUEtiapine FUMARATE 25 MG TAB PO SCH (22:06)
[2017-07-06] MEDS: azaTHIOprine 50 MG TAB PEG SCH ×2 (05:38→18:09)
[2017-07-06 08:00] VITALS: BP 108/85; PULSE 91; RESP 20; TEMP 99.1; O2SAT 98
[2017-07-06] MEDS: JUVEN POWDER 1 PACK G-TUBE SCH ×2 (09:00→21:00)
[2017-07-06] MEDS: SENNOSIDES SYRUP 8.8 MG/5 ML CUP PEG SCH (09:13)
[2017-07-06] MEDS: ENOXAPARIN SODIUM 40 MG/0.4 ML SYRINGE SQ SCH (09:14)
[2017-07-06] MEDS: LACTOBACILLUS ACIDOPHILUS TAB PEG SCH ×2 (09:14→22:30)
[2017-07-06] MEDS: FLUoxetine HCL LIQUID 20 MG/5 ML CUP PEG SCH (09:14)
[2017-07-06] MEDS: LANSOPRAZOLE SOLUTAB 30 MG TAB PEG SCH ×2 (09:14→22:29)
[2017-07-06] MEDS: predniSONE 20 MG TAB PEG SCH (09:14)
[2017-07-06] MEDS: VANCOMYCIN INJ 1,250 MG in SODIUM CHLOR 0.9% 250 ML INJ 250 ML IV SCH (09:37)
--- NOTE | 2017-07-06 11:48 | HHI.PR ---
Subjective Remarks Follow-up neuro Behcet's syndrome. Patient seen and examined, sleeping comfortably with eyes closed in bed awakens to voice. Denies any pain. No change in clinical condition. Vital signs stable. Objective Vitals Vital Signs Date Time Temp Pulse Resp B/P (MAP) Pulse Ox O2 Delivery O2 Flow Rate FiO2 07/06/17 08:00 99.1 91 20 108/85 (93) 98 07/05/17 20:00 96.9 78 16 100/65 (77) 96 I/O 07/05/17 07/05/17 07/05/17 07/06/17 07/06/17 07/06/17 07:00 15:00 23:00 07:00 15:00 23:00 Intake Total 262 ml Output Total 900 ml 550 ml 450 ml Balance -900 ml 262 ml -550 ml -450 ml IV Total 262 ml Output Urine Total 900 ml 550 ml 450 ml # Bowel Movements 2 1 0 Result Diagram: 07/05/17 0545 07/05/17 0545 Imaging Last Impressions Chest X-Ray 06/01/17 1118 Signed Impressions: Service Date/Time: May 11:33 - CONCLUSION: Bibasilar patchy infiltrates. Gen Potter MD Hip Aspiration/Injection 10/08/16 0000 Signed Impressions: Service Date/Time: Tuesday, October 11, 2016 13:41 - CONCLUSION: Uncomplicated aspiration as above. Minimal fluid on the right. No identifiable fluid on the left Clayton Max MD Lower Extremity Ultrasound 10/06/16 0000 Signed Impressions: Service Date/Time: September 17:29 - CONCLUSION: Normal examination. Josafat Meyer MD CT Angiography 10/06/16 0000 Signed Impressions: Service Date/Time: September 20:31 - CONCLUSION: Minimal right upper lobe infiltrate and basilar atelectasis. No evidence of pulmonary embolism.. Josafat Meyer MD Abdomen/Pelvis CT 10/06/16 0000 Signed Impressions: Service Date/Time: September 20:31 - CONCLUSION: No evidence of pelvic abscess. Josafat Meyer MD Upper Extremity Ultrasound 09/28/16 0000 Signed Impressions: Service Date/Time: Wednesday, September 28, 2016 19:15 - CONCLUSION: 1. Occlusive superficial thrombosis in the left cephalic vein near the antecubital fossa. No deep venous thrombosis. Sumit Bourgeois MD Renal Ultrasound 08/28/16 Signed Impressions: Service Date/Time: Sunday, August 28, 2016 20:03 - CONCLUSION: Mild increased echotexture of both kidneys. Baldev Vu MD Lumbar Puncture Fluoroscopy 08/17/16 Signed Impressions: Service Date/Time: Wednesday, August 17, 2016 12:26 - CONCLUSION: Uncomplicated fluoroscopically guided lumbar puncture. Vishal Beckford Jr., MD Brain MRI 08/17/16 Signed Impressions: Service Date/Time: Wednesday, August 17, 2016 13:28 - CONCLUSION: Remote long-standing areas of abnormality in the brainstem and middle cerebellar peduncle consistent with remote infarcts or contusion. No acute intracranial abnormality. Chacho Bright MD Abdomen X-Ray 08/17/16 Signed Impressions: Service Date/Time: Wednesday, August 17, 2016 13:02 - CONCLUSION: No evidence of obstruction. No MRI incompatible foreign body is identified. Chacho Bright MD Head CT 08/16/16 Signed Impressions: Service Date/Time: Tuesday, August 16, 2016 09:55 - CONCLUSION: Chronic ischemic changes left frontal lobe possibly from evidence of previous ventriculostomy placement, unchanged. No acute intracranial abnormality. Gen Potter MD Modified Barium Swallow 08/15/16 Signed Impressions: Service Date/Time: Monday, August 15, 2016 00:00 - CONCLUSION: See report above and speech pathology report Chacho Bright MD Objective Remarks GENERAL: Well-developed cachectic and contracted male patient in NAD. Awake and alert. Nodding appropriately. SKIN: Warm and dry. No rash. HEENT: Normocephalic. Atraumatic. Pupils equal and round. No scleral icterus. No injection or drainage. No nasal bleeding or discharge. Mucous membranes pink and moist. NECK: Supple. Trachea midline. CARDIOVASCULAR: Regular rate and rhythm. S1, S2 noted. No murmur appreciated. RESPIRATORY: No accessory muscle use. Course and rhonchi throughout lung lawson. Breath sounds equal bilaterally. GASTROINTESTINAL: Abdomen soft, non-tender, nondistended. Normoactive bowel sounds x4. No guarding. PEG tube noted, no erythema or drainage from site, c/d/ i. MUSCULOSKELETAL: No obvious deformities. Extremities without clubbing, cyanosis , or edema. Procedures 07/19/16 EGD with PEG tube placement 09/27/16 colonoscopy Date of Insertion: Jul 01, 2017 A/P Problem List: (1) Neurologic type Behcet's syndrome ICD Code: M35.2 - Behcet's disease Status: Chronic (2) Hospital acquired PNA ICD Code: J18.9 - Pneumonia, unspecified organism Status: Resolved (3) Sepsis ICD Code: A41.9 - Sepsis, unspecified organism Status: Resolved (4) Encephalopathy ICD Code: G93.40 - Encephalopathy, unspecified Status: Resolved (5) GI bleed ICD Code: K92.2 - Gastrointestinal hemorrhage, unspecified Status: Resolved (6) HCAP (healthcare-associated pneumonia) ICD Code: J18.9 - Pneumonia, unspecified organism Status: Resolved (7) UTI (urinary tract infection) ICD Code: N39.0 - Urinary tract infection, site not specified Status: Resolved (8) Leucocytosis ICD Code: D72.829 - Elevated white blood cell count, unspecified Status: Resolved (9) Fever ICD Code: R50.9 - Fever, unspecified Status: Resolved (10) Effusion of hip joint ICD Code: M25.459 - Effusion, unspecified hip Status: Acute (11) 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, unspecified Status: Acute (12) Blurred vision, bilateral ICD Code: H53.8 - Other visual disturbances Status: Acute (13) Bacterial conjunctivitis of left eye ICD Code: H10.9 - Unspecified conjunctivitis Assessment and Plan Low-grade fever , resolved Could be secondary to chronic indwelling Kowalski, Kowalski is changed monthly, however it is been noticed that he develops constitutional signs of infection around 3 weeks after Kowalski changed CBC does show low-grade leukocytosis, could be secondary to mild dehydration as seen on BMP, which has improved with IV hydration Replaced Kowalski and obtained clean urine sample (07/01/17). Urine culture growing group D enterococcus and Staphylococcus epidermidis. Will discontinue Levaquin 500 mg by mouth daily, not sensitive. Start on Vancomycin IV. 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 Awaiting ID to see patient. Neuro-Behcet, history of frontal lobe CVA, encephalopathy, history of meningitis , Blurred vision/double vision, urinary retention, chronic No new changes on imaging. Patient was followed by neurology. Aphasic at baseline. Continue Imuran, prednisone EEG shows mild to moderate slowing at times of various depending on the epoch , there was no epileptic activity seen Continue PT/OT Palliative care still following the patient. 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 07/01/17 --Decreased oral intake and dysphagia on initial presentation Speech therapy evaluated patient. S/P barium swallow. Patient with severe dysphagia. GI was consulted and PEG tube was placed. Patient was intolerant to bolus feeding Dietary reconsulted and made recommendations Coccyx decubitus. Ankle ulceration Wound care nurse is following the patient for management, last seen 07/05/17 Patient with specialty bed Mood disorder, depression Psychiatry evaluated patient and made recommendations Prozac 40 mg daily Seroquel 25 mg at bedtime Diabetes Glucose continues to be well controlled, DVT Prophylaxis: Lovenox, TEDs/SCD Medical records were reviewed. Awaiting case management for discharge planning No change in current treatment plan. Discharge Planning Case management assisting. Problem Qualifiers (1) GI bleed: (2) UTI (urinary tract infection): (3) Effusion of hip joint: Dotty Pacheco Jul 06, 2017 11:48
--- NOTE | 2017-07-06 17:57 | HHI.IDPN ---
Subjective Subjective Remarks ID FU DR LORD is a 46 AAM with NeuroBehcet's disease, difficult placement and not safe discharge so continues to reside at [facility]. PT IS AWAKE AND ABLE TO ANSWER SOME SIMPLE COMMANDS HE HAD A LOW GRADE TEMP TM 99 UA + MANY WBC CULTURE + ENTEROCOCCUS / STAPH EPI ID RECONSULTED STARTED ON VANCOMYCIN Antibiotics 07/06 Vancomycin IV Lines Line sites with no e.o infection Mauriec cath changed Monday Past Medical History reviewed Allergies: Uncoded Allergies: ADHESIVE TAPE (Allergy, Severe, 09/21/16) BLISTERS Objective . Vital Signs Date Time Temp Pulse Resp B/P (MAP) Pulse Ox O2 Delivery O2 Flow Rate FiO2 07/06/17 08:00 99.1 91 20 108/85 (93) 98 07/05/17 20:00 96.9 78 16 100/65 (77) 96 07/06/17 07/06/17 07/07/17 14:59 22:59 06:59 Intake Total 262.5 ml Balance 262.5 ml IV Total 262.5 ml . Laboratory Tests Test 07/05/17 05:45 White Blood Count 8.6 TH/MM3 Red Blood Count 4.11 MIL/MM3 Hemoglobin 12.4 GM/DL Hematocrit 38.4 % Mean Corpuscular Volume 93.3 FL Mean Corpuscular Hemoglobin 30.2 PG Mean Corpuscular Hemoglobin Concent 32.4 % Red Cell Distribution Width 15.2 % Platelet Count 228 TH/MM3 Mean Platelet Volume 8.9 FL Neutrophils (%) (Auto) 67.8 % Lymphocytes (%) (Auto) 26.1 % Monocytes (%) (Auto) 4.9 % Eosinophils (%) (Auto) 0.6 % Basophils (%) (Auto) 0.6 % Neutrophils # (Auto) 5.8 TH/MM3 Lymphocytes # (Auto) 2.2 TH/MM3 Monocytes # (Auto) 0.4 TH/MM3 Eosinophils # (Auto) 0.1 TH/MM3 Basophils # (Auto) 0.1 TH/MM3 CBC Comment DIFF FINAL Differential Comment Laboratory Tests Test 07/05/17 05:45 Blood Urea Nitrogen 22 MG/DL Creatinine 0.70 MG/DL Random Glucose 135 MG/DL Calcium Level 9.1 MG/DL Sodium Level 140 MEQ/L Potassium Level 3.8 MEQ/L Chloride Level 104 MEQ/L Carbon Dioxide Level 28.9 MEQ/L Anion Gap 7 MEQ/L Estimat Glomerular Filtration Rate 148 ML/MIN Imaging Last Impressions Chest X-Ray 10/11/16 0000 Signed Impressions: Service Date/Time: Tuesday, October 11, 2016 21:23 - CONCLUSION: 1. Bilateral hazy airspace disease. Differential diagnosis includes edema and aspiration. Sumit Bourgeois MD Hip Aspiration/Injection 10/08/16 0000 Signed Impressions: Service Date/Time: Tuesday, October 11, 2016 13:41 - CONCLUSION: Uncomplicated aspiration as above. Minimal fluid on the right. No identifiable fluid on the left Clayton Max MD Lower Extremity Ultrasound 10/06/16 0000 Signed Impressions: Service Date/Time: September 17:29 - CONCLUSION: Normal examination. Josafat Meyer MD CT Angiography 10/06/16 0000 Signed Impressions: Service Date/Time: September 20:31 - CONCLUSION: Minimal right upper lobe infiltrate and basilar atelectasis. No evidence of pulmonary embolism.. Josafat Meyer MD Abdomen/Pelvis CT 10/06/16 0000 Signed Impressions: Service Date/Time: September 20:31 - CONCLUSION: No evidence of pelvic abscess. Josafat Meyer MD Upper Extremity Ultrasound 09/28/16 0000 Signed Impressions: Service Date/Time: Wednesday, September 28, 2016 19:15 - CONCLUSION: 1. Occlusive superficial thrombosis in the left cephalic vein near the antecubital fossa. No deep venous thrombosis. Sumit Bourgeois MD Renal Ultrasound 08/28/16 0000 Signed Impressions: Service Date/Time: Sunday, August 28, 2016 20:03 - CONCLUSION: Mild increased echotexture of both kidneys. Baldev Vu MD Lumbar Puncture Fluoroscopy 08/17/16 0000 Signed Impressions: Service Date/Time: Wednesday, August 17, 2016 12:26 - CONCLUSION: Uncomplicated fluoroscopically guided lumbar puncture. Vishal Beckford Jr., MD Brain MRI 08/17/16 0000 Signed Impressions: Service Date/Time: Wednesday, August 17, 2016 13:28 - CONCLUSION: Remote long-standing areas of abnormality in the brainstem and middle cerebellar peduncle consistent with remote infarcts or contusion. No acute intracranial abnormality. Chacho Bright MD Abdomen X-Ray 08/17/16 0000 Signed Impressions: Service Date/Time: Wednesday, August 17, 2016 13:02 - CONCLUSION: No evidence of obstruction. No MRI incompatible foreign body is identified. Chacho Bright MD Head CT 08/16/16 0000 Signed Impressions: Service Date/Time: Tuesday, August 16, 2016 09:55 - CONCLUSION: Chronic ischemic changes left frontal lobe possibly from evidence of previous ventriculostomy placement, unchanged. No acute intracranial abnormality. Gen Potter MD Modified Barium Swallow 08/15/16 0000 Signed Impressions: Service Date/Time: Monday, August 15, 2016 00:00 - CONCLUSION: See report above and speech pathology report Chacho Bright MD Physical Exam GENERAL: Awake , chronically ill appearing patient. SKIN: Old scars on arms. EYES: Pupils equal round and reactive. Extraocular motions intact. No scleral icterus. No injection or drainage. ENT: moist mucosae drooling CARDIOVASCULAR: HS audible. No murmur. RESPIRATORY:. Breath sounds equal bilaterally. Coarse rhonchi equal GASTROINTESTINAL: Abdomen soft, non-tender, minimally distended. : maurice in place with clear yellow urine MUSCULOSKELETAL: Extremities without clubbing, cyanosis, or edema. Wasting and contractures. NEUROLOGICAL: awake and able to respond appropriately to some questions. Psych: unable to assess IV line sites with no e.o infection. 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 (2). UTI- Enterococcus/ staph Epi (3) Buttock wound - no e/o infection; colonized with VRE, pseudomonas bilateral hip effusions ? septic arthritis vs avascular necrosis. sp IR guided aspiration of R hip : bloody tap 800K RBC, 100 WBC Low grade (1/4) coag negative staph bactermeia, likely no clin significance Plan: Pt on vancomycin staph epi likely contaminant enterococcus sensitive to pcn would treat with oral ampicillin, dc vancomycin and fu repeat uac in 3-4 days Marilou Jackson Jul 06, 2017 17:57
[2017-07-06 20:00] VITALS: BP 118/86; PULSE 79; RESP 20; TEMP 96.7; O2SAT 96
[2017-07-06] MEDS: QUEtiapine FUMARATE 25 MG TAB PO SCH (22:29)
[2017-07-06] MEDS: AMOXICILLIN 875 MG TAB PO SCH (22:30)
[2017-07-07] VITALS: BP 98/86; PULSE 86; RESP 16; TEMP 95.5; O2SAT 99
[2017-07-07] MEDS: azaTHIOprine 50 MG TAB PEG SCH ×2 (05:59→08:52)
[2017-07-07 08:00] VITALS: BP 126/88; PULSE 90; RESP 12; TEMP 98.2; O2SAT 92
[2017-07-07] MEDS: JUVEN POWDER 1 PACK G-TUBE SCH ×2 (08:51→21:00)
[2017-07-07] MEDS: LANSOPRAZOLE SOLUTAB 30 MG TAB PEG SCH ×2 (08:52→22:14)
[2017-07-07] MEDS: FLUoxetine HCL LIQUID 20 MG/5 ML CUP PEG SCH (08:52)
[2017-07-07] MEDS: SENNOSIDES SYRUP 8.8 MG/5 ML CUP PEG SCH (08:52)
[2017-07-07] MEDS: LACTOBACILLUS ACIDOPHILUS TAB PEG SCH ×2 (08:52→22:14)
[2017-07-07] MEDS: predniSONE 20 MG TAB PEG SCH (08:52)
[2017-07-07] MEDS: ENOXAPARIN SODIUM 40 MG/0.4 ML SYRINGE SQ SCH (08:53)
[2017-07-07] MEDS: AMOXICILLIN 875 MG TAB PO SCH ×2 (08:54→22:15)
--- NOTE | 2017-07-07 10:54 | HHI.PR ---
Subjective Remarks Follow-up neuro-Behcet's syndrome. Patient seen and examined, lying in bed comfortably. No reports of any acute events overnight. No clinical change in condition. Afebrile overnight. Vital signs stable Objective Vitals Vital Signs Date Time Temp Pulse Resp B/P (MAP) Pulse Ox O2 Delivery O2 Flow Rate FiO2 07/07/17 08:00 98.2 90 12 126/88 (101) 92 07/07/17 00:00 95.5 86 16 98/86 (90) 99 07/06/17 20:00 96.7 79 20 118/86 (97) 96 I/O 07/06/17 07/06/17 07/06/17 07/07/17 07/07/17 07/07/17 07:00 15:00 23:00 07:00 15:00 23:00 Intake Total 262.5 ml 850 ml Output Total 450 ml 500 ml 450 ml Balance -450 ml 262.5 ml 350 ml -450 ml IV Total 262.5 ml Tube Feeding 350 ml Other 500 ml Output Urine Total 450 ml 500 ml 450 ml # Bowel Movements 0 1 Result Diagram: 07/05/17 0545 07/05/17 0545 Imaging Last Impressions Chest X-Ray 06/01/17 1118 Signed Impressions: Service Date/Time: May 11:33 - CONCLUSION: Bibasilar patchy infiltrates. Gen Potter MD Hip Aspiration/Injection 10/08/16 0000 Signed Impressions: Service Date/Time: Tuesday, October 11, 2016 13:41 - CONCLUSION: Uncomplicated aspiration as above. Minimal fluid on the right. No identifiable fluid on the left Clayton Max MD Lower Extremity Ultrasound 10/06/16 0000 Signed Impressions: Service Date/Time: September 17:29 - CONCLUSION: Normal examination. Josafat Meyer MD CT Angiography 10/06/16 0000 Signed Impressions: Service Date/Time: September 20:31 - CONCLUSION: Minimal right upper lobe infiltrate and basilar atelectasis. No evidence of pulmonary embolism.. Josafat Meyer MD Abdomen/Pelvis CT 10/06/16 0000 Signed Impressions: Service Date/Time: September 20:31 - CONCLUSION: No evidence of pelvic abscess. Josafat Meyer MD Upper Extremity Ultrasound 09/28/16 Signed Impressions: Service Date/Time: Wednesday, September 28, 2016 19:15 - CONCLUSION: 1. Occlusive superficial thrombosis in the left cephalic vein near the antecubital fossa. No deep venous thrombosis. Sumit Bourgeois MD Renal Ultrasound 08/28/16 Signed Impressions: Service Date/Time: Sunday, August 28, 2016 20:03 - CONCLUSION: Mild increased echotexture of both kidneys. Baldev Vu MD Lumbar Puncture Fluoroscopy 08/17/16 Signed Impressions: Service Date/Time: Wednesday, August 17, 2016 12:26 - CONCLUSION: Uncomplicated fluoroscopically guided lumbar puncture. Vishal Beckford Jr., MD Brain MRI 08/17/16 Signed Impressions: Service Date/Time: Wednesday, August 17, 2016 13:28 - CONCLUSION: Remote long-standing areas of abnormality in the brainstem and middle cerebellar peduncle consistent with remote infarcts or contusion. No acute intracranial abnormality. Chacho Bright MD Abdomen X-Ray 08/17/16 Signed Impressions: Service Date/Time: Wednesday, August 17, 2016 13:02 - CONCLUSION: No evidence of obstruction. No MRI incompatible foreign body is identified. Chacho Bright MD Head CT 08/16/16 Signed Impressions: Service Date/Time: Tuesday, August 16, 2016 09:55 - CONCLUSION: Chronic ischemic changes left frontal lobe possibly from evidence of previous ventriculostomy placement, unchanged. No acute intracranial abnormality. Gen Potter MD Modified Barium Swallow 08/15/16 Signed Impressions: Service Date/Time: Monday, August 15, 2016 00:00 - CONCLUSION: See report above and speech pathology report Chacho Bright MD Objective Remarks GENERAL: Well-developed cachectic and contracted male patient in NAD. Awake and alert. Nodding appropriately. SKIN: Warm and dry. No rash. HEENT: Normocephalic. Atraumatic. Pupils equal and round. No scleral icterus. No injection or drainage. No nasal bleeding or discharge. Mucous membranes pink and moist. NECK: Supple. Trachea midline. CARDIOVASCULAR: Regular rate and rhythm. S1, S2 noted. No murmur appreciated. RESPIRATORY: No accessory muscle use. Course and rhonchi throughout lung lawson. Breath sounds equal bilaterally. GASTROINTESTINAL: Abdomen soft, non-tender, nondistended. Normoactive bowel sounds x4. No guarding. PEG tube noted, no erythema or drainage from site, c/d/ i. MUSCULOSKELETAL: No obvious deformities. Extremities without clubbing, cyanosis , or edema. Procedures 07/19/16 EGD with PEG tube placement 09/27/16 colonoscopy Date of Insertion: Jul 01, 2017 A/P Problem List: (1) Neurologic type Behcet's syndrome ICD Code: M35.2 - Behcet's disease Status: Chronic (2) Hospital acquired PNA ICD Code: J18.9 - Pneumonia, unspecified organism Status: Resolved (3) Sepsis ICD Code: A41.9 - Sepsis, unspecified organism Status: Resolved (4) Encephalopathy ICD Code: G93.40 - Encephalopathy, unspecified Status: Resolved (5) GI bleed ICD Code: K92.2 - Gastrointestinal hemorrhage, unspecified Status: Resolved (6) HCAP (healthcare-associated pneumonia) ICD Code: J18.9 - Pneumonia, unspecified organism Status: Resolved (7) UTI (urinary tract infection) ICD Code: N39.0 - Urinary tract infection, site not specified Status: Resolved (8) Leucocytosis ICD Code: D72.829 - Elevated white blood cell count, unspecified Status: Resolved (9) Fever ICD Code: R50.9 - Fever, unspecified Status: Resolved (10) Effusion of hip joint ICD Code: M25.459 - Effusion, unspecified hip Status: Acute (11) 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, unspecified Status: Acute (12) Blurred vision, bilateral ICD Code: H53.8 - Other visual disturbances Status: Acute (13) Bacterial conjunctivitis of left eye ICD Code: H10.9 - Unspecified conjunctivitis Assessment and Plan Low-grade fever , resolved Could be secondary to chronic indwelling Kowalski, Kowalski is changed monthly, however it is been noticed that he develops constitutional signs of infection around 3 weeks after Kowalski changed CBC does show low-grade leukocytosis, could be secondary to mild dehydration as seen on BMP, which has improved with IV hydration Replaced Kowalski and obtained clean urine sample (07/01/17). Urine culture growing group D enterococcus and Staphylococcus epidermidis. Will discontinue Levaquin 500 mg by mouth daily, not sensitive. ID following. DC Vanco. Staph epi likely contaminant, Enterococcus sensitive to pcn. Started on PO Ampicillin. Repeat UA in 3-4 days. Neuro-Behcet, history of frontal lobe CVA, encephalopathy, history of meningitis , Blurred vision/double vision, urinary retention, chronic No new changes on imaging. Patient was followed by neurology. Aphasic at baseline. Continue Imuran, prednisone EEG shows mild to moderate slowing at times of various depending on the epoch , there was no epileptic activity seen Continue PT/OT Palliative care still following the patient. 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 07/01/17 --Decreased oral intake and dysphagia on initial presentation Speech therapy evaluated patient. S/P barium swallow. Patient with severe dysphagia. GI was consulted and PEG tube was placed. Patient was intolerant to bolus feeding Dietary reconsulted and made recommendations Coccyx decubitus. Ankle ulceration Wound care nurse is following the patient for management, last seen 07/05/17 Patient with specialty bed Mood disorder, depression Psychiatry evaluated patient and made recommendations Prozac 40 mg daily Seroquel 25 mg at bedtime Diabetes Glucose continues to be well controlled, DVT Prophylaxis: Lovenox, TEDs/SCD Medical records were reviewed. Awaiting case management for discharge planning No change in current treatment plan. Discharge Planning Case management assisting. Problem Qualifiers (1) GI bleed: (2) UTI (urinary tract infection): (3) Effusion of hip joint: Dotty Pacheco Jul 07, 2017 10:54
[2017-07-07 20:00] VITALS: BP 121/85; PULSE 78; RESP 20; TEMP 98.7; O2SAT 98
[2017-07-07] MEDS: QUEtiapine FUMARATE 25 MG TAB PO SCH (22:14)
[2017-07-08] MEDS: azaTHIOprine 50 MG TAB PEG SCH ×2 (05:26→16:54)
[2017-07-08 08:00] VITALS: BP 103/81; PULSE 86; RESP 20; TEMP 97.4; O2SAT 96
[2017-07-08] MEDS: SENNOSIDES SYRUP 8.8 MG/5 ML CUP PEG SCH (09:00)
[2017-07-08] MEDS: JUVEN POWDER 1 PACK G-TUBE SCH ×2 (09:00→22:28)
[2017-07-08] MEDS: LACTOBACILLUS ACIDOPHILUS TAB PEG SCH ×2 (09:39→22:27)
[2017-07-08] MEDS: predniSONE 20 MG TAB PEG SCH (09:39)
[2017-07-08] MEDS: ENOXAPARIN SODIUM 40 MG/0.4 ML SYRINGE SQ SCH (09:40)
[2017-07-08] MEDS: LANSOPRAZOLE SOLUTAB 30 MG TAB PEG SCH ×2 (09:40→22:27)
[2017-07-08] MEDS: AMOXICILLIN 875 MG TAB PO SCH ×2 (09:41→22:27)
[2017-07-08] MEDS: FLUoxetine HCL LIQUID 20 MG/5 ML CUP PEG SCH (09:41)
[2017-07-08 12:00] VITALS: BP 110/85; PULSE 82; RESP 19; TEMP 97.6; O2SAT 96
[2017-07-08 13:30] VITALS: O2SAT 98
--- NOTE | 2017-07-08 13:41 | HHI.PR ---
Subjective Remarks Follow-up neuro Behcet's syndrome. Patient seen and examined, lying in bed comfortably, [employer] at bedside. Patient awake and alert. Denies any pain or discomfort. No change in clinical condition. Vitals are stable. Objective Vitals Vital Signs Date Time Temp Pulse Resp B/P (MAP) Pulse Ox O2 Delivery O2 Flow Rate FiO2 07/08/17 12:00 97.6 82 19 110/85 (93) 96 07/08/17 08:00 97.4 86 20 103/81 (88) 96 07/07/17 20:00 98.7 78 20 121/85 (97) 98 I/O 07/07/17 07/07/17 07/07/17 07/08/17 07/08/17 07/08/17 07:00 15:00 23:00 07:00 15:00 23:00 Output Total 450 ml 650 ml 550 ml Balance -450 ml -650 ml -550 ml Output Urine Total 450 ml 650 ml 550 ml # Bowel Movements 1 0 Result Diagram: 07/05/17 0545 07/05/17 0545 Imaging Last Impressions Chest X-Ray 06/01/17 1118 Signed Impressions: Service Date/Time: May 11:33 - CONCLUSION: Bibasilar patchy infiltrates. Gen Potter MD Hip Aspiration/Injection 10/08/16 0000 Signed Impressions: Service Date/Time: Tuesday, October 11, 2016 13:41 - CONCLUSION: Uncomplicated aspiration as above. Minimal fluid on the right. No identifiable fluid on the left Clayton Max MD Lower Extremity Ultrasound 10/06/16 0000 Signed Impressions: Service Date/Time: September 17:29 - CONCLUSION: Normal examination. Josafat Meyer MD CT Angiography 10/06/16 0000 Signed Impressions: Service Date/Time: September 20:31 - CONCLUSION: Minimal right upper lobe infiltrate and basilar atelectasis. No evidence of pulmonary embolism.. Josafat Meyer MD Abdomen/Pelvis CT 10/06/16 0000 Signed Impressions: Service Date/Time: September 20:31 - CONCLUSION: No evidence of pelvic abscess. Josafat Meyer MD Upper Extremity Ultrasound 4/5/17 0000 Signed Impressions: Service Date/Time: Wednesday, September 28, 2016 19:15 - CONCLUSION: 1. Occlusive superficial thrombosis in the left cephalic vein near the antecubital fossa. No deep venous thrombosis. Sumit Bourgeois MD Renal Ultrasound 08/28/16 Signed Impressions: Service Date/Time: Sunday, August 28, 2016 20:03 - CONCLUSION: Mild increased echotexture of both kidneys. Baldev Vu MD Lumbar Puncture Fluoroscopy 08/17/16 Signed Impressions: Service Date/Time: Wednesday, August 17, 2016 12:26 - CONCLUSION: Uncomplicated fluoroscopically guided lumbar puncture. Vishal Beckford Jr., MD Brain MRI 08/17/16 Signed Impressions: Service Date/Time: Wednesday, August 17, 2016 13:28 - CONCLUSION: Remote long-standing areas of abnormality in the brainstem and middle cerebellar peduncle consistent with remote infarcts or contusion. No acute intracranial abnormality. Chacho Bright MD Abdomen X-Ray 08/17/16 Signed Impressions: Service Date/Time: Wednesday, August 17, 2016 13:02 - CONCLUSION: No evidence of obstruction. No MRI incompatible foreign body is identified. Chacho Bright MD Head CT 08/16/16 Signed Impressions: Service Date/Time: Tuesday, August 16, 2016 09:55 - CONCLUSION: Chronic ischemic changes left frontal lobe possibly from evidence of previous ventriculostomy placement, unchanged. No acute intracranial abnormality. Gen Potter MD Modified Barium Swallow 08/15/16 Signed Impressions: Service Date/Time: Monday, August 15, 2016 00:00 - CONCLUSION: See report above and speech pathology report Chacho Bright MD Objective Remarks GENERAL: Well-developed cachectic and contracted male patient in NAD. Awake and alert. Nodding appropriately. SKIN: Warm and dry. No rash. HEENT: Normocephalic. Atraumatic. Pupils equal and round. No scleral icterus. No injection or drainage. No nasal bleeding or discharge. Mucous membranes pink and moist. NECK: Supple. Trachea midline. CARDIOVASCULAR: Regular rate and rhythm. S1, S2 noted. No murmur appreciated. RESPIRATORY: No accessory muscle use. Course and rhonchi throughout lung [place]. Breath sounds equal bilaterally. GASTROINTESTINAL: Abdomen soft, non-tender, nondistended. Normoactive bowel sounds x4. No guarding. PEG tube noted, no erythema or drainage from site, c/d/ i. MUSCULOSKELETAL: No obvious deformities. Extremities without clubbing, cyanosis , or edema. 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: Chronic (2) Hospital acquired PNA ICD Code: J18.9 - Pneumonia, unspecified organism Status: Resolved (3) Sepsis ICD Code: A41.9 - Sepsis, unspecified organism Status: Resolved (4) Encephalopathy ICD Code: G93.40 - Encephalopathy, unspecified Status: Resolved (5) GI bleed ICD Code: K92.2 - Gastrointestinal hemorrhage, unspecified Status: Resolved (6) HCAP (healthcare-associated pneumonia) ICD Code: J18.9 - Pneumonia, unspecified organism Status: Resolved (7) UTI (urinary tract infection) ICD Code: N39.0 - Urinary tract infection, site not specified Status: Resolved (8) Leucocytosis ICD Code: D72.829 - Elevated white blood cell count, unspecified Status: Resolved (9) Fever ICD Code: R50.9 - Fever, unspecified Status: Resolved (10) Effusion of hip joint ICD Code: M25.459 - Effusion, unspecified hip Status: Acute (11) 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, unspecified Status: Acute (12) Blurred vision, bilateral ICD Code: H53.8 - Other visual disturbances Status: Acute (13) Bacterial conjunctivitis of left eye ICD Code: H10.9 - Unspecified conjunctivitis Assessment and Plan Low-grade fever , resolved Could be secondary to chronic indwelling Kowalski, Kowalski is changed monthly, however it is been noticed that he develops constitutional signs of infection around 3 weeks after Kowalski changed CBC does show low-grade leukocytosis, could be secondary to mild dehydration as seen on BMP, which has improved with IV hydration Replaced Kowalski and obtained clean urine sample (07/01/17). Urine culture growing group D enterococcus and Staphylococcus epidermidis. Will discontinue Levaquin 500 mg by mouth daily, not sensitive. ID following. DC Vanco. Staph epi likely contaminant, Enterococcus sensitive to pcn. Started on PO Ampicillin. Repeat UA in 3 days (on 07/09/17). Neuro-Behcet, history of frontal lobe CVA, encephalopathy, history of meningitis , Blurred vision/double vision, urinary retention, chronic No new changes on imaging. Patient was followed by neurology. Aphasic at baseline. Continue Imuran, prednisone EEG shows mild to moderate slowing at times of various depending on the epoch , there was no epileptic activity seen Continue PT/OT Palliative care still following the patient. 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 07/01/17 --Decreased oral intake and dysphagia on initial presentation Speech therapy evaluated patient. S/P barium swallow. Patient with severe dysphagia. GI was consulted and PEG tube was placed. Patient was intolerant to bolus feeding Dietary reconsulted and made recommendations Coccyx decubitus. Ankle ulceration Wound care nurse is following the patient for management, last seen 07/05/17 Patient with specialty bed Mood disorder, depression Psychiatry evaluated patient and made recommendations Prozac 40 mg daily Seroquel 25 mg at bedtime Diabetes Glucose continues to be well controlled, DVT Prophylaxis: Lovenox, TEDs/SCD Medical records were reviewed. Awaiting case management for discharge planning No change in current treatment plan. Discharge Planning Case management assisting. Problem Qualifiers (1) GI bleed: (2) UTI (urinary tract infection): (3) Effusion of hip joint: Dotty Pacheco Jul 08, 2017 13:41
[2017-07-08 16:00] VITALS: BP 137/82; PULSE 84; RESP 22; TEMP 97.6; O2SAT 94
[2017-07-08 20:00] VITALS: BP_SYST 116; BP_SYST 98; BP_DIAS 76; BP_DIAS 80; PULSE 75; RESP 20; TEMP 96.7; O2SAT 95
[2017-07-08] MEDS: QUEtiapine FUMARATE 25 MG TAB PO SCH (22:26)
[2017-07-09] MEDS: azaTHIOprine 50 MG TAB PEG SCH ×2 (04:52→18:01)
[2017-07-09 08:00] VITALS: BP 130/74; PULSE 82; RESP 18; TEMP 98.8; O2SAT 96
[2017-07-09] MEDS: SENNOSIDES SYRUP 8.8 MG/5 ML CUP PEG SCH (09:00)
[2017-07-09] MEDS: JUVEN POWDER 1 PACK G-TUBE SCH ×2 (09:00→21:00)
--- NOTE | 2017-07-09 09:17 | HHI.PR ---
Subjective Remarks Follow-up neuro-Behcet's syndrome. Patient seen and examined, lying in bed comfortably in no apparent distress. Patient awake and alert. Denies any pain. Denies any needs. No change in clinical condition. Objective Vitals Vital Signs Date Time Temp Pulse Resp B/P (MAP) Pulse Ox O2 Delivery O2 Flow Rate FiO2 07/08/17 20:00 96.7 75 20 116/76 (89) 95 07/08/17 16:00 97.6 84 22 137/82 (100) 94 07/08/17 13:30 98 21 07/08/17 12:00 97.6 82 19 110/85 (93) 96 I/O 07/08/17 07/08/17 07/08/17 07/09/17 07/09/17 07/09/17 07:00 15:00 23:00 07:00 15:00 23:00 Intake Total 720 ml 1000 ml Output Total 550 ml 200 ml 800 ml Balance -550 ml 720 ml 800 ml -800 ml Tube Feeding 600 ml Tube Irrigant 720 ml 400 ml Output Urine Total 550 ml 200 ml 800 ml # Bowel Movements 0 0 Result Diagram: 07/05/17 0545 07/05/17 0545 Imaging Last Impressions Chest X-Ray 06/01/17 1118 Signed Impressions: Service Date/Time: May 11:33 - CONCLUSION: Bibasilar patchy infiltrates. Gen Potter MD Hip Aspiration/Injection 10/08/16 0000 Signed Impressions: Service Date/Time: Tuesday, October 11, 2016 13:41 - CONCLUSION: Uncomplicated aspiration as above. Minimal fluid on the right. No identifiable fluid on the left Clayton Max MD Lower Extremity Ultrasound 10/06/16 0000 Signed Impressions: Service Date/Time: September 17:29 - CONCLUSION: Normal examination. Josafat Meyer MD CT Angiography 10/06/16 0000 Signed Impressions: Service Date/Time: September 20:31 - CONCLUSION: Minimal right upper lobe infiltrate and basilar atelectasis. No evidence of pulmonary embolism.. Josafat Meyer MD Abdomen/Pelvis CT 10/06/16 0000 Signed Impressions: Service Date/Time: September 20:31 - CONCLUSION: No evidence of pelvic abscess. Josafat Meyer MD Upper Extremity Ultrasound 09/28/16 Signed Impressions: Service Date/Time: Wednesday, September 28, 2016 19:15 - CONCLUSION: 1. Occlusive superficial thrombosis in the left cephalic vein near the antecubital fossa. No deep venous thrombosis. Sumit Bourgeois MD Renal Ultrasound 08/28/16 Signed Impressions: Service Date/Time: Sunday, August 28, 2016 20:03 - CONCLUSION: Mild increased echotexture of both kidneys. Baldev Vu MD Lumbar Puncture Fluoroscopy 08/17/16 Signed Impressions: Service Date/Time: Wednesday, August 17, 2016 12:26 - CONCLUSION: Uncomplicated fluoroscopically guided lumbar puncture. Vishal Beckford Jr., MD Brain MRI 08/17/16 Signed Impressions: Service Date/Time: Wednesday, August 17, 2016 13:28 - CONCLUSION: Remote long-standing areas of abnormality in the brainstem and middle cerebellar peduncle consistent with remote infarcts or contusion. No acute intracranial abnormality. Chacho Bright MD Abdomen X-Ray 08/17/16 Signed Impressions: Service Date/Time: Wednesday, August 17, 2016 13:02 - CONCLUSION: No evidence of obstruction. No MRI incompatible foreign body is identified. Chacho Bright MD Head CT 08/16/16 Signed Impressions: Service Date/Time: Tuesday, August 16, 2016 09:55 - CONCLUSION: Chronic ischemic changes left frontal lobe possibly from evidence of previous ventriculostomy placement, unchanged. No acute intracranial abnormality. Gen Potter MD Modified Barium Swallow 08/15/16 Signed Impressions: Service Date/Time: Monday, August 15, 2016 00:00 - CONCLUSION: See report above and speech pathology report Chacho Bright MD Objective Remarks GENERAL: Well-developed cachectic and contracted male patient in NAD. Awake and alert. Nodding appropriately. SKIN: Warm and dry. No rash. HEENT: Normocephalic. Atraumatic. Pupils equal and round. No scleral icterus. No injection or drainage. No nasal bleeding or discharge. Mucous membranes pink and moist. NECK: Supple. Trachea midline. CARDIOVASCULAR: Regular rate and rhythm. S1, S2 noted. No murmur appreciated. RESPIRATORY: No accessory muscle use. Course and rhonchi throughout lung [place]. Breath sounds equal bilaterally. GASTROINTESTINAL: Abdomen soft, non-tender, nondistended. Normoactive bowel sounds x4. No guarding. PEG tube noted, no erythema or drainage from site, c/d/ i. MUSCULOSKELETAL: No obvious deformities. Extremities without clubbing, cyanosis , or edema. 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: Chronic (2) Hospital acquired PNA ICD Code: J18.9 - Pneumonia, unspecified organism Status: Resolved (3) Sepsis ICD Code: A41.9 - Sepsis, unspecified organism Status: Resolved (4) Encephalopathy ICD Code: G93.40 - Encephalopathy, unspecified Status: Resolved (5) GI bleed ICD Code: K92.2 - Gastrointestinal hemorrhage, unspecified Status: Resolved (6) HCAP (healthcare-associated pneumonia) ICD Code: J18.9 - Pneumonia, unspecified organism Status: Resolved (7) UTI (urinary tract infection) ICD Code: N39.0 - Urinary tract infection, site not specified Status: Resolved (8) Leucocytosis ICD Code: D72.829 - Elevated white blood cell count, unspecified Status: Resolved (9) Fever ICD Code: R50.9 - Fever, unspecified Status: Resolved (10) Effusion of hip joint ICD Code: M25.459 - Effusion, unspecified hip Status: Acute (11) 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, unspecified Status: Acute (12) Blurred vision, bilateral ICD Code: H53.8 - Other visual disturbances Status: Acute (13) Bacterial conjunctivitis of left eye ICD Code: H10.9 - Unspecified conjunctivitis Assessment and Plan Low-grade fever , resolved Could be secondary to chronic indwelling Kowalski Kowalski is changed monthly, however it is been noticed that he develops constitutional signs of infection around 3 weeks after Kowalski changed CBC does show low-grade leukocytosis, could be secondary to mild dehydration as seen on BMP, which has improved with IV hydration Replaced Kowalski and obtained clean urine sample (07/01/17). Urine culture growing group D enterococcus and Staphylococcus epidermidis. Will discontinue Levaquin 500 mg by mouth daily, not sensitive. ID following. DC Vanco. Staph epi likely contaminant, Enterococcus sensitive to pcn. Started on PO Ampicillin. Continue Repeat UA today, follow. Neuro-Behcet, history of frontal lobe CVA, encephalopathy, history of meningitis , Blurred vision/double vision, urinary retention, chronic No new changes on imaging. Patient was followed by neurology. Aphasic at baseline. Continue Imuran, prednisone EEG shows mild to moderate slowing at times of various depending on the epoch , there was no epileptic activity seen Continue PT/OT Palliative care still following the patient. 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 07/01/17 --Decreased oral intake and dysphagia on initial presentation Speech therapy evaluated patient. S/P barium swallow. Patient with severe dysphagia. GI was consulted and PEG tube was placed. Patient was intolerant to bolus feeding Dietary reconsulted and made recommendations Coccyx decubitus. Ankle ulceration Wound care nurse is following the patient for management, last seen 07/05/17 Patient with specialty bed Mood disorder, depression Psychiatry evaluated patient and made recommendations Prozac 40 mg daily Seroquel 25 mg at bedtime Diabetes Glucose continues to be well controlled, DVT Prophylaxis: Lovenox, TEDs/SCD Medical records were reviewed. Awaiting case management for discharge planning No change in current treatment plan. Discharge Planning Case management assisting. Problem Qualifiers (1) GI bleed: (2) UTI (urinary tract infection): (3) Effusion of hip joint: Dotty Pacheco Jul 09, 2017 09:17
[2017-07-09] MEDS: AMOXICILLIN 875 MG TAB PO SCH ×2 (09:35→22:28)
[2017-07-09] MEDS: LANSOPRAZOLE SOLUTAB 30 MG TAB PEG SCH ×2 (09:35→22:28)
[2017-07-09] MEDS: LACTOBACILLUS ACIDOPHILUS TAB PEG SCH ×2 (09:35→22:28)
[2017-07-09] MEDS: ENOXAPARIN SODIUM 40 MG/0.4 ML SYRINGE SQ SCH (09:36)
[2017-07-09] MEDS: FLUoxetine HCL LIQUID 20 MG/5 ML CUP PEG SCH (09:36)
[2017-07-09] MEDS: predniSONE 20 MG TAB PEG SCH (09:37)
[2017-07-09 13:46] LABS: BILIRUBIN, URINE NEG (NEG); BLOOD, URINE MOD (NEG); GLUCOSE,URINE NEG (NEG); KETONE, URINE NEG (NEG); NITRITE,URINE NEG (NEG); URINE LEUKOCYTE ESTERASE TRACE (NEG)
[2017-07-09 13:53] LABS: URINE COLOR YELLOW (YELLW/STRAW)
[2017-07-09 13:54] LABS: AMORPHOUS SEDIMENT, URINE FEW
[2017-07-09 20:00] VITALS: BP 126/78; PULSE 84; RESP 20; TEMP 96.6; O2SAT 95
[2017-07-09] MEDS: QUEtiapine FUMARATE 25 MG TAB PO SCH (22:28)
[2017-07-10] MEDS: azaTHIOprine 50 MG TAB PEG SCH ×2 (05:01→17:30)
[2017-07-10 07:50] VITALS: BP 120/80; PULSE 94; RESP 20; TEMP 97.6; O2SAT 96
[2017-07-10] MEDS: JUVEN POWDER 1 PACK G-TUBE SCH ×2 (09:00→21:12)
[2017-07-10] MEDS: FLUoxetine HCL LIQUID 20 MG/5 ML CUP PEG SCH (09:28)
[2017-07-10] MEDS: predniSONE 20 MG TAB PEG SCH (09:29)
[2017-07-10] MEDS: ENOXAPARIN SODIUM 40 MG/0.4 ML SYRINGE SQ SCH (09:29)
[2017-07-10] MEDS: SENNOSIDES SYRUP 8.8 MG/5 ML CUP PEG SCH (09:29)
[2017-07-10] MEDS: LACTOBACILLUS ACIDOPHILUS TAB PEG SCH ×2 (09:29→21:16)
[2017-07-10] MEDS: AMOXICILLIN 875 MG TAB PO SCH ×2 (09:29→21:15)
[2017-07-10] MEDS: LANSOPRAZOLE SOLUTAB 30 MG TAB PEG SCH ×2 (09:29→21:16)
--- NOTE | 2017-07-10 09:41 | HHI.PR ---
Subjective Remarks Follow-up neuro-Behcet's syndrome. Patient seen and examined, lying in bed comfortably in no apparent distress. Awake and alert, nodding appropriately. Denies any pain or distress or discomfort. No change in clinical condition. Vitals are stable. Afebrile. Objective Vitals Vital Signs Date Time Temp Pulse Resp B/P (MAP) Pulse Ox O2 Delivery O2 Flow Rate FiO2 07/09/17 20:00 96.6 84 20 126/78 (94) 95 I/O 07/09/17 07/09/17 07/09/17 07/10/17 07/10/17 07/10/17 07:00 15:00 23:00 07:00 15:00 23:00 Intake Total 680 ml 800 ml 500 ml Output Total 800 ml 750 ml Balance -800 ml 680 ml 800 ml -250 ml Tube Feeding 480 ml 600 ml 300 ml Tube Irrigant 200 ml 200 ml Other 200 ml Output Urine Total 800 ml 750 ml # Bowel Movements 0 1 Imaging Last Impressions Chest X-Ray 06/01/17 1118 Signed Impressions: Service Date/Time: May 11:33 - CONCLUSION: Bibasilar patchy infiltrates. Gen Potter MD Hip Aspiration/Injection 10/08/16 0000 Signed Impressions: Service Date/Time: Tuesday, October 11, 2016 13:41 - CONCLUSION: Uncomplicated aspiration as above. Minimal fluid on the right. No identifiable fluid on the left Clayton Max MD Lower Extremity Ultrasound 10/06/16 0000 Signed Impressions: Service Date/Time: September 17:29 - CONCLUSION: Normal examination. Josafat Meyer MD CT Angiography 10/06/16 0000 Signed Impressions: Service Date/Time: September 20:31 - CONCLUSION: Minimal right upper lobe infiltrate and basilar atelectasis. No evidence of pulmonary embolism.. Josafat Meyer MD Abdomen/Pelvis CT 10/06/16 0000 Signed Impressions: Service Date/Time: September 20:31 - CONCLUSION: No evidence of pelvic abscess. Josafat Meyer MD Upper Extremity Ultrasound 09/28/16 0000 Signed Impressions: Service Date/Time: Wednesday, September 28, 2016 19:15 - CONCLUSION: 1. Occlusive superficial thrombosis in the left cephalic vein near the antecubital fossa. No deep venous thrombosis. Sumit Bourgeois MD Renal Ultrasound 08/28/16 Signed Impressions: Service Date/Time: Sunday, August 28, 2016 20:03 - CONCLUSION: Mild increased echotexture of both kidneys. Baldev Vu MD Lumbar Puncture Fluoroscopy 08/17/16 0000 Signed Impressions: Service Date/Time: Wednesday, August 17, 2016 12:26 - CONCLUSION: Uncomplicated fluoroscopically guided lumbar puncture. Vishal Beckford Jr., MD Brain MRI 08/17/16 Signed Impressions: Service Date/Time: Wednesday, August 17, 2016 13:28 - CONCLUSION: Remote long-standing areas of abnormality in the brainstem and middle cerebellar peduncle consistent with remote infarcts or contusion. No acute intracranial abnormality. Chacho Bright MD Abdomen X-Ray 08/17/16 Signed Impressions: Service Date/Time: Wednesday, August 17, 2016 13:02 - CONCLUSION: No evidence of obstruction. No MRI incompatible foreign body is identified. Chacho Bright MD Head CT 08/16/16 Signed Impressions: Service Date/Time: Tuesday, August 16, 2016 09:55 - CONCLUSION: Chronic ischemic changes left frontal lobe possibly from evidence of previous ventriculostomy placement, unchanged. No acute intracranial abnormality. Gen Potter MD Modified Barium Swallow 08/15/16 0000 Signed Impressions: Service Date/Time: Monday, August 15, 2016 00:00 - CONCLUSION: See report above and speech pathology report Chacho Bright MD Objective Remarks GENERAL: Well-developed cachectic and contracted male patient in NAD. Awake and alert. Nodding appropriately. SKIN: Warm and dry. No rash. HEENT: Normocephalic. Atraumatic. Pupils equal and round. No scleral icterus. No injection or drainage. No nasal bleeding or discharge. Mucous membranes pink and moist. NECK: Supple. Trachea midline. CARDIOVASCULAR: Regular rate and rhythm. S1, S2 noted. No murmur appreciated. RESPIRATORY: No accessory muscle use. Course and rhonchi throughout lung [place]. Breath sounds equal bilaterally. GASTROINTESTINAL: Abdomen soft, non-tender, nondistended. Normoactive bowel sounds x4. No guarding. PEG tube noted, no erythema or drainage from site, c/d/ i. MUSCULOSKELETAL: No obvious deformities. Extremities without clubbing, cyanosis , or edema. 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: Chronic (2) Hospital acquired PNA ICD Code: J18.9 - Pneumonia, unspecified organism Status: Resolved (3) Sepsis ICD Code: A41.9 - Sepsis, unspecified organism Status: Resolved (4) Encephalopathy ICD Code: G93.40 - Encephalopathy, unspecified Status: Resolved (5) GI bleed ICD Code: K92.2 - Gastrointestinal hemorrhage, unspecified Status: Resolved (6) HCAP (healthcare-associated pneumonia) ICD Code: J18.9 - Pneumonia, unspecified organism Status: Resolved (7) UTI (urinary tract infection) ICD Code: N39.0 - Urinary tract infection, site not specified Status: Resolved (8) Leucocytosis ICD Code: D72.829 - Elevated white blood cell count, unspecified Status: Resolved (9) Fever ICD Code: R50.9 - Fever, unspecified Status: Resolved (10) Effusion of hip joint ICD Code: M25.459 - Effusion, unspecified hip Status: Acute (11) 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, unspecified Status: Acute (12) Blurred vision, bilateral ICD Code: H53.8 - Other visual disturbances Status: Acute (13) Bacterial conjunctivitis of left eye ICD Code: H10.9 - Unspecified conjunctivitis Assessment and Plan Low-grade fever , resolved Could be secondary to chronic indwelling Kowalski Kowalski is changed monthly, however it is been noticed that he develops constitutional signs of infection around 3 weeks after Kowalski changed CBC does show low-grade leukocytosis, could be secondary to mild dehydration as seen on BMP, which has improved with IV hydration Replaced Kowalski and obtained clean urine sample (07/01/17). Urine culture growing group D enterococcus and Staphylococcus epidermidis. Will discontinue Levaquin 500 mg by mouth daily, not sensitive. ID following. DC Vanco. Staph epi likely contaminant, Enterococcus sensitive to pcn. Continue PO Ampicillin. Repeat UA clean. Neuro-Behcet, history of frontal lobe CVA, encephalopathy, history of meningitis , Blurred vision/double vision, urinary retention, chronic No new changes on imaging. Patient was followed by neurology. Aphasic at baseline. Continue Imuran, prednisone EEG shows mild to moderate slowing at times of various depending on the epoch , there was no epileptic activity seen Continue PT/OT Palliative care still following the patient. 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 07/01/17 --Decreased oral intake and dysphagia on initial presentation Speech therapy evaluated patient. S/P barium swallow. Patient with severe dysphagia. GI was consulted and PEG tube was placed. Patient was intolerant to bolus feeding Dietary reconsulted and made recommendations Coccyx decubitus. Ankle ulceration Wound care nurse is following the patient for management, last seen 07/05/17 Patient with specialty bed Mood disorder, depression Psychiatry evaluated patient and made recommendations Prozac 40 mg daily Seroquel 25 mg at bedtime Diabetes Glucose continues to be well controlled, DVT Prophylaxis: Lovenox, TEDs/SCD Medical records were reviewed. Awaiting case management for discharge planning No change in current treatment plan. Discharge Planning Case management assisting. Problem Qualifiers (1) GI bleed: (2) UTI (urinary tract infection): (3) Effusion of hip joint: Dotty Pacheco Jul 10, 2017 09:41
[2017-07-10 20:00] VITALS: BP 114/73; PULSE 82; RESP 20; TEMP 96.4; O2SAT 95
[2017-07-10] MEDS: EUCERIN CREAM 120 GM JAR TOPICAL PRN (21:12)
[2017-07-10] MEDS: QUEtiapine FUMARATE 25 MG TAB PO SCH (21:16)
[2017-07-11] MEDS: azaTHIOprine 50 MG TAB PEG SCH ×2 (05:53→17:56)
[2017-07-11] MEDS: ENOXAPARIN SODIUM 40 MG/0.4 ML SYRINGE SQ SCH (07:57)
[2017-07-11] MEDS: SENNOSIDES SYRUP 8.8 MG/5 ML CUP PEG SCH (07:57)
[2017-07-11] MEDS: FLUoxetine HCL LIQUID 20 MG/5 ML CUP PEG SCH (07:57)
[2017-07-11] MEDS: AMOXICILLIN 875 MG TAB PO SCH ×2 (07:58→20:46)
[2017-07-11] MEDS: LACTOBACILLUS ACIDOPHILUS TAB PEG SCH ×2 (07:58→20:46)
[2017-07-11] MEDS: LANSOPRAZOLE SOLUTAB 30 MG TAB PEG SCH ×2 (07:58→20:46)
[2017-07-11] MEDS: predniSONE 20 MG TAB PEG SCH (07:58)
[2017-07-11] MEDS: JUVEN POWDER 1 PACK G-TUBE SCH ×2 (07:59→20:46)
[2017-07-11 08:00] VITALS: BP 120/98; PULSE 96; RESP 18; TEMP 98.3; O2SAT 93
--- NOTE | 2017-07-11 08:51 | HHI.PR ---
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 Patient denies any new complaints. No change in clinical status. Afebrile, vital signs are stable Objective Vitals Vital Signs Date Time Temp Pulse Resp B/P (MAP) Pulse Ox O2 Delivery O2 Flow Rate FiO2 07/10/17 20:00 96.4 82 20 114/73 (87) 95 I/O 07/10/17 07/10/17 07/10/17 07/11/17 07/11/17 07/11/17 06:59 14:59 22:59 06:59 14:59 22:59 Intake Total 500 ml 1240 ml 862 ml Output Total 750 ml 500 ml 400 ml Balance -250 ml 740 ml 462 ml Intake Oral 0 ml Tube Feeding 300 ml 600 ml 622 ml Tube Irrigant 200 ml 240 ml Other 200 ml 440 ml Output Urine Total 750 ml 500 ml 400 ml # Bowel Movements 1 0 0 Objective Remarks GENERAL: Well-developed, cachectic and contracted. HEENT: Head is normocephalic without any lesions or masses noted. Facial features are symmetric. Eyes: Extraocular muscles are intact. Conjunctivae were clear. NECK: Trachea midline no deviation. CARDIAC: Regular rhythm, tachycardia noted. S1/S2 are heard. No murmurs gallops or rubs. LUNGS: Clear to auscultation bilaterally. No wheeze, rhonchi or rales. No use of accessory muscles on inspiration or expiration. ABDOMEN: Soft, nontender. Nondistended. Bowel sounds heard in all 4 quadrants. No organomegaly or masses. Negative rebound, negative guarding. PEG tube noted without any excoriation. EXTREMITIES: No edema, pulses are equal bilaterally. No cyanosis or clubbing. Procedures 07/19/16 EGD with PEG tube placement 09/27/16 colonoscopy Urinary Catheter: Yes Assessment to: Continue Kowalski insert reason: Obstruction/Retention Date of Insertion: Jul 01, 2017 Vascular Central Line Catheter: No A/P Assessment and Plan Low-grade fever , resolved Could be secondary to chronic indwelling Kowalski, Kowalski is changed monthly, however it is been noticed that he develops constitutional signs of infection around 3 weeks after Kowalski changed CBC does show low-grade leukocytosis, could be secondary to mild dehydration as seen on BMP, which has improved with IV hydration Replaced Kowalski and obtained clean urine sample Urinalysis does indicate urinary tract infection, Urine culture indicating immature growth, continue to follow until final for appropriate antibiotics Discontinued Levaquin 500 mg by mouth daily, per sensitivity results Patient was started on vancomycin and changed to amoxicillin per infectious disease Infectious evaluated patient and made recommendations follow-up urinalysis was clear Neuro-Behcet, history of frontal lobe CVA, encephalopathy, history of meningitis , Blurred vision/double vision, urinary retention, chronic No new changes on imaging. Patient was followed by neurology. Aphasic at baseline. Continue Imuran, prednisone EEG shows mild to moderate slowing at times of various depending on the epoch , there was no epileptic activity seen Continue PT/OT Palliative care still following the patient. 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 07/01/17 --Decreased oral intake and dysphagia on initial presentation Speech therapy evaluated patient. S/P barium swallow. Patient with severe dysphagia. GI was consulted and PEG tube was placed. Patient was intolerant to bolus feeding Dietary reconsulted and made recommendations Oral thrush Likely secondary to recent antibiotic use Status post nystatin for 2 weeks Coccyx decubitus. Ankle ulceration Wound care nurse is following the patient for management Patient with specialty bed Mood disorder, depression Psychiatry evaluated patient and made recommendations Prozac 40 mg daily Seroquel 25 mg at bedtime Diabetes Glucose continues to be well controlled, DVT Prophylaxis: Lovenox, TEDs/SCD Medical records were reviewed. Awaiting case management for discharge planning No change in current treatment plan. Discharge Planning Case management for discharge planning, Ede Richardson Jul 11, 2017 08:51
[2017-07-11 20:00] VITALS: BP 111/98; PULSE 89; RESP 20; TEMP 97; O2SAT 98
[2017-07-11] MEDS: QUEtiapine FUMARATE 25 MG TAB PO SCH (20:46)
[2017-07-12] VITALS: BP 111/98; PULSE 89; RESP 20; TEMP 97; O2SAT 98
[2017-07-12] MEDS: azaTHIOprine 50 MG TAB PEG SCH ×2 (05:06→18:00)
[2017-07-12 08:00] VITALS: BP 157/98; PULSE 96; RESP 22; TEMP 98.5; O2SAT 95
[2017-07-12] MEDS: SENNOSIDES SYRUP 8.8 MG/5 ML CUP PEG SCH (08:10)
[2017-07-12] MEDS: predniSONE 20 MG TAB PEG SCH (08:11)
[2017-07-12] MEDS: FLUoxetine HCL LIQUID 20 MG/5 ML CUP PEG SCH (08:11)
[2017-07-12] MEDS: ENOXAPARIN SODIUM 40 MG/0.4 ML SYRINGE SQ SCH (08:11)
[2017-07-12] MEDS: LANSOPRAZOLE SOLUTAB 30 MG TAB PEG SCH ×2 (08:11→21:29)
[2017-07-12] MEDS: LACTOBACILLUS ACIDOPHILUS TAB PEG SCH ×2 (08:11→21:30)
[2017-07-12] MEDS: JUVEN POWDER 1 PACK G-TUBE SCH ×2 (08:11→21:00)
[2017-07-12] MEDS: AMOXICILLIN 875 MG TAB PO SCH ×2 (08:12→21:30)
--- NOTE | 2017-07-12 08:38 | HHI.PR ---
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 Patient doing quite well. Denies any new complaints. No change in clinical status. Vital signs are stable. Afebrile Objective Vitals Vital Signs Date Time Temp Pulse Resp B/P (MAP) Pulse Ox O2 Delivery O2 Flow Rate FiO2 07/12/17 00:00 97.0 89 20 111/98 (102) 98 07/11/17 20:00 97.0 89 20 111/98 (102) 98 I/O 07/11/17 07/11/17 07/11/17 07/12/17 07/12/17 07/12/17 07:00 15:00 23:00 07:00 15:00 23:00 Intake Total 862 ml Output Total 400 ml 875 ml Balance 462 ml -875 ml Intake Oral 0 ml Tube Feeding 622 ml Tube Irrigant 240 ml Output Urine Total 400 ml 875 ml # Bowel Movements 0 1 Objective Remarks GENERAL: Well-developed, cachectic and contracted. HEENT: Head is normocephalic without any lesions or masses noted. Facial features are symmetric. Eyes: Extraocular muscles are intact. Conjunctivae were clear. NECK: Trachea midline no deviation. CARDIAC: Regular rhythm, tachycardia noted. S1/S2 are heard. No murmurs gallops or rubs. LUNGS: Clear to auscultation bilaterally. No wheeze, rhonchi or rales. No use of accessory muscles on inspiration or expiration. ABDOMEN: Soft, nontender. Nondistended. Bowel sounds heard in all 4 quadrants. No organomegaly or masses. Negative rebound, negative guarding. PEG tube noted without any excoriation. EXTREMITIES: No edema, pulses are equal bilaterally. No cyanosis or clubbing. Procedures 07/19/16 EGD with PEG tube placement 09/27/16 colonoscopy Urinary Catheter: Yes Assessment to: Continue Kowalski insert reason: Obstruction/Retention Date of Insertion: Jul 01, 2017 Vascular Central Line Catheter: No A/P Assessment and Plan Low-grade fever , resolved Could be secondary to chronic indwelling Kowalski, Kowalski is changed monthly, however it is been noticed that he develops constitutional signs of infection around 3 weeks after Kowalski changed CBC does show low-grade leukocytosis, could be secondary to mild dehydration as seen on BMP, which has improved with IV hydration Replaced Kowalski and obtained clean urine sample Urinalysis does indicate urinary tract infection, Urine culture indicating immature growth, continue to follow until final for appropriate antibiotics Discontinued Levaquin 500 mg by mouth daily, per sensitivity results Patient was started on vancomycin and changed to amoxicillin per infectious disease Infectious disease evaluated patient and made recommendations follow-up urinalysis was clear Neuro-Behcet, history of frontal lobe CVA, encephalopathy, history of meningitis , Blurred vision/double vision, urinary retention, chronic No new changes on imaging. Patient was followed by neurology. Aphasic at baseline. Continue Imuran, prednisone EEG shows mild to moderate slowing at times of various depending on the epoch , there was no epileptic activity seen Continue PT/OT Palliative care still following the patient. 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 07/01/17 --Decreased oral intake and dysphagia on initial presentation Speech therapy evaluated patient. S/P barium swallow. Patient with severe dysphagia. GI was consulted and PEG tube was placed. Patient was intolerant to bolus feeding Dietary reconsulted and made recommendations Coccyx decubitus. Ankle ulceration Wound care nurse is following the patient for management Patient with specialty bed Mood disorder, depression Psychiatry evaluated patient and made recommendations Prozac 40 mg daily Seroquel 25 mg at bedtime Diabetes Glucose continues to be well controlled, DVT Prophylaxis: Lovenox, TEDs/SCD Medical records were reviewed. No change in current treatment plan. Awaiting case management for discharge planning Discharge Planning Case management for discharge planning, Ede Richardson Jul 12, 2017 08:37
[2017-07-12 20:00] VITALS: BP 110/76; PULSE 82; RESP 20; TEMP 96; O2SAT 96
[2017-07-12] MEDS: QUEtiapine FUMARATE 25 MG TAB PO SCH (21:30)
[2017-07-13] MEDS: azaTHIOprine 50 MG TAB PEG SCH ×2 (05:32→17:21)
[2017-07-13 08:00] VITALS: BP 117/88; PULSE 92; RESP 16; TEMP 96.7; O2SAT 93
[2017-07-13] MEDS: AMOXICILLIN 875 MG TAB PO SCH ×2 (09:00→20:40)
[2017-07-13] MEDS: JUVEN POWDER 1 PACK G-TUBE SCH ×2 (09:00→20:41)
[2017-07-13] MEDS: SENNOSIDES SYRUP 8.8 MG/5 ML CUP PEG SCH (09:00)
[2017-07-13] MEDS: LACTOBACILLUS ACIDOPHILUS TAB PEG SCH ×2 (10:33→20:39)
[2017-07-13] MEDS: FLUoxetine HCL LIQUID 20 MG/5 ML CUP PEG SCH (10:33)
[2017-07-13] MEDS: predniSONE 20 MG TAB PEG SCH (10:35)
[2017-07-13] MEDS: LANSOPRAZOLE SOLUTAB 30 MG TAB PEG SCH ×2 (10:35→20:40)
[2017-07-13] MEDS: ENOXAPARIN SODIUM 40 MG/0.4 ML SYRINGE SQ SCH (10:36)
--- NOTE | 2017-07-13 11:26 | HHI.PR ---
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 Patient denies any new complaints. No change in clinical status. Vital signs are stable, afebrile. Nursing staff to not indicate any acute events overnight. Objective Vitals Vital Signs Date Time Temp Pulse Resp B/P (MAP) Pulse Ox O2 Delivery O2 Flow Rate FiO2 07/13/17 08:00 96.7 92 16 117/88 (98) 93 07/12/17 20:00 96.0 82 20 110/76 (87) 96 I/O 07/12/17 07/12/17 07/12/17 07/13/17 07/13/17 07/13/17 07:00 15:00 23:00 07:00 15:00 23:00 Intake Total 750 ml Output Total 875 ml 400 ml 425 ml Balance -875 ml -400 ml 325 ml Intake Oral 0 ml Tube Feeding 550 ml Other 200 ml Output Urine Total 875 ml 400 ml 425 ml # Bowel Movements 1 1 1 Objective Remarks GENERAL: Well-developed, cachectic and contracted. HEENT: Head is normocephalic without any lesions or masses noted. Facial features are symmetric. Eyes: Extraocular muscles are intact. Conjunctivae were clear. NECK: Trachea midline no deviation. CARDIAC: Regular rhythm, tachycardia noted. S1/S2 are heard. No murmurs gallops or rubs. LUNGS: Clear to auscultation bilaterally. No wheeze, rhonchi or rales. No use of accessory muscles on inspiration or expiration. ABDOMEN: Soft, nontender. Nondistended. Bowel sounds heard in all 4 quadrants. No organomegaly or masses. Negative rebound, negative guarding. PEG tube noted without any excoriation. EXTREMITIES: No edema, pulses are equal bilaterally. No cyanosis or clubbing. Procedures 07/19/16 EGD with PEG tube placement 09/27/16 colonoscopy Urinary Catheter: Yes Assessment to: Continue Kowalski insert reason: Obstruction/Retention Date of Insertion: Jul 01, 2017 Vascular Central Line Catheter: No A/P Assessment and Plan Low-grade fever , resolved Could be secondary to chronic indwelling Kowalski, Kowalski is changed monthly, however it is been noticed that he develops constitutional signs of infection around 3 weeks after Koawlski changed CBC does show low-grade leukocytosis, could be secondary to mild dehydration as seen on BMP, which has improved with IV hydration Replaced Kowalski and obtained clean urine sample Urinalysis does indicate urinary tract infection, Urine culture indicating immature growth, continue to follow until final for appropriate antibiotics Discontinued Levaquin 500 mg by mouth daily, per sensitivity results Patient was started on vancomycin and changed to amoxicillin per infectious disease will continue for a total of 14 days Infectious disease evaluated patient and made recommendations follow-up urinalysis was clear Neuro-Behcet, history of frontal lobe CVA, encephalopathy, history of meningitis , Blurred vision/double vision, urinary retention, chronic No new changes on imaging. Patient was followed by neurology. Aphasic at baseline. Continue Imuran, prednisone EEG shows mild to moderate slowing at times of various depending on the epoch , there was no epileptic activity seen Continue PT/OT Palliative care still following the patient. 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 07/01/17 --Decreased oral intake and dysphagia on initial presentation Speech therapy evaluated patient. S/P barium swallow. Patient with severe dysphagia. GI was consulted and PEG tube was placed. Patient was intolerant to bolus feeding Dietary reconsulted and made recommendations Coccyx decubitus. Ankle ulceration Wound care nurse is following the patient for management Patient with specialty bed Mood disorder, depression Psychiatry evaluated patient and made recommendations Prozac 40 mg daily Seroquel 25 mg at bedtime Diabetes Glucose continues to be well controlled, DVT Prophylaxis: Lovenox, TEDs/SCD Medical records were reviewed. Awaiting case management for discharge planning No change in current treatment plan. Discharge Planning Case management for discharge planning, Ede Richardson Jul 13, 2017 11:26
[2017-07-13 20:00] VITALS: BP 135/84; PULSE 92; RESP 16; TEMP 97.3; O2SAT 94
[2017-07-13] MEDS: QUEtiapine FUMARATE 25 MG TAB PO SCH (20:40)
[2017-07-14] VITALS: BP 122/72; PULSE 78; RESP 16; TEMP 97.6; O2SAT 98
[2017-07-14 04:00] VITALS: BP 103/80; PULSE 92; RESP 16; TEMP 96.2; O2SAT 95
[2017-07-14] MEDS: azaTHIOprine 50 MG TAB PEG SCH ×2 (05:16→17:25)
[2017-07-14 08:00] VITALS: BP 111/83; PULSE 86; RESP 14; TEMP 97.8; O2SAT 98
[2017-07-14] MEDS: SENNOSIDES SYRUP 8.8 MG/5 ML CUP PEG SCH (09:00)
[2017-07-14] MEDS: JUVEN POWDER 1 PACK G-TUBE SCH ×2 (09:00→21:00)
[2017-07-14] MEDS: FLUoxetine HCL LIQUID 20 MG/5 ML CUP PEG SCH (10:38)
[2017-07-14] MEDS: LACTOBACILLUS ACIDOPHILUS TAB PEG SCH ×2 (10:39→21:05)
[2017-07-14] MEDS: predniSONE 20 MG TAB PEG SCH (10:39)
[2017-07-14] MEDS: AMOXICILLIN 875 MG TAB PO SCH ×2 (10:39→21:04)
[2017-07-14] MEDS: LANSOPRAZOLE SOLUTAB 30 MG TAB PEG SCH ×2 (10:39→21:05)
[2017-07-14] MEDS: ENOXAPARIN SODIUM 40 MG/0.4 ML SYRINGE SQ SCH (10:40)
--- NOTE | 2017-07-14 13:02 | HHI.PR ---
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 Patient denies any new complaints. No change in clinical status. Vital signs are stable. Afebrile. Objective Vitals Vital Signs Date Time Temp Pulse Resp B/P (MAP) Pulse Ox O2 Delivery O2 Flow Rate FiO2 07/14/17 08:00 97.8 86 14 111/83 (92) 98 07/14/17 04:00 96.2 92 16 103/80 (88) 95 07/14/17 00:00 97.6 78 16 122/72 (89) 98 07/13/17 20:00 97.3 92 16 135/84 (101) 94 I/O 07/13/17 07/13/17 07/13/17 07/14/17 07/14/17 07/14/17 07:00 15:00 23:00 07:00 15:00 23:00 Intake Total 750 ml 680 ml 800 ml 0 ml Output Total 425 ml 400 ml 475 ml Balance 325 ml 680 ml 400 ml -475 ml Intake Oral 0 ml 0 ml Tube Feeding 550 ml 480 ml 600 ml Tube Irrigant 200 ml 200 ml Other 200 ml Output Urine Total 425 ml 400 ml 475 ml # Bowel Movements 1 0 0 Objective Remarks GENERAL: Well-developed, cachectic and contracted. HEENT: Head is normocephalic without any lesions or masses noted. Facial features are symmetric. Eyes: Extraocular muscles are intact. Conjunctivae were clear. NECK: Trachea midline no deviation. CARDIAC: Regular rhythm, tachycardia noted. S1/S2 are heard. No murmurs gallops or rubs. LUNGS: Clear to auscultation bilaterally. No wheeze, rhonchi or rales. No use of accessory muscles on inspiration or expiration. ABDOMEN: Soft, nontender. Nondistended. Bowel sounds heard in all 4 quadrants. No organomegaly or masses. Negative rebound, negative guarding. PEG tube noted without any excoriation. EXTREMITIES: No edema, pulses are equal bilaterally. No cyanosis or clubbing. Procedures 07/19/16 EGD with PEG tube placement 09/27/16 colonoscopy Urinary Catheter: Yes Assessment to: Continue Kowalski insert reason: Obstruction/Retention Date of Insertion: Jul 01, 2017 Vascular Central Line Catheter: No A/P Assessment and Plan Low-grade fever , resolved Could be secondary to chronic indwelling Kowalski, Kowalski is changed monthly, however it is been noticed that he develops constitutional signs of infection around 3 weeks after Kowalski changed CBC does show low-grade leukocytosis, could be secondary to mild dehydration as seen on BMP, which has improved with IV hydration Replaced Kowalski and obtained clean urine sample Urinalysis does indicate urinary tract infection, Urine culture indicating immature growth, continue to follow until final for appropriate antibiotics Discontinued Levaquin 500 mg by mouth daily, per sensitivity results Patient was started on vancomycin and changed to amoxicillin per infectious disease will continue for a total of 14 days Infectious disease evaluated patient and made recommendations follow-up urinalysis was clear Neuro-Behcet, history of frontal lobe CVA, encephalopathy, history of meningitis , Blurred vision/double vision, urinary retention, chronic No new changes on imaging. Patient was followed by neurology. Aphasic at baseline. Continue Imuran, prednisone EEG shows mild to moderate slowing at times of various depending on the epoch , there was no epileptic activity seen Continue PT/OT Palliative care still following the patient. 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 07/01/17 --Decreased oral intake and dysphagia on initial presentation Speech therapy evaluated patient. S/P barium swallow. Patient with severe dysphagia. GI was consulted and PEG tube was placed. Dietary reconsulted for proceeding recommendations Coccyx decubitus. Ankle ulceration Wound care nurse is following the patient for management Patient with specialty bed Mood disorder, depression Psychiatry evaluated patient and made recommendations Prozac 40 mg daily Seroquel 25 mg at bedtime Diabetes Glucose continues to be well controlled, DVT Prophylaxis: Lovenox, TEDs/SCD Medical records were reviewed. No change in current treatment plan. Awaiting case management for discharge planning Discharge Planning Case management for discharge planning, Ede Richardson Jul 14, 2017 13:02
[2017-07-14 20:00] VITALS: BP 112/80; PULSE 87; RESP 20; TEMP 97.5; O2SAT 99
[2017-07-14 20:58] VITALS: O2SAT 96
[2017-07-14] MEDS: PADIMATE (CHAPSTICK) 4.5 GM TUBE TOPICAL PRN (21:04)
[2017-07-14] MEDS: QUEtiapine FUMARATE 25 MG TAB PO SCH (21:05)
[2017-07-15] MEDS: azaTHIOprine 50 MG TAB PEG SCH ×2 (06:09→18:26)
[2017-07-15 09:00] VITALS: BP 124/87; PULSE 90; RESP 18; TEMP 96.7; O2SAT 98
[2017-07-15] MEDS: JUVEN POWDER 1 PACK G-TUBE SCH ×2 (09:00→21:36)
[2017-07-15] MEDS: SENNOSIDES SYRUP 8.8 MG/5 ML CUP PEG SCH (09:00)
[2017-07-15] MEDS: AMOXICILLIN 875 MG TAB PO SCH ×2 (09:00→21:34)
--- NOTE | 2017-07-15 09:53 | HHI.PR ---
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 Patient denies any new complaints at this time. No change in clinical status. Reviewed nutrition notes, will transition to bolus feeding. Vital signs are stable, afebrile Objective Vitals Vital Signs Date Time Temp Pulse Resp B/P (MAP) Pulse Ox O2 Delivery O2 Flow Rate FiO2 07/14/17 20:58 96 21 07/14/17 20:00 97.5 87 20 112/80 (91) 99 I/O 07/14/17 07/14/17 07/14/17 07/15/17 07/15/17 07/15/17 07:00 15:00 23:00 07:00 15:00 23:00 Intake Total 0 ml 730 ml 800 ml 1229 ml Output Total 475 ml 450 ml 350 ml Balance -475 ml 730 ml 350 ml 879 ml Intake Oral 0 ml 0 ml Tube Feeding 480 ml 600 ml 629 ml Tube Irrigant 250 ml 200 ml 200 ml Other 400 ml Output Urine Total 475 ml 450 ml 350 ml Gastric Drainage Total 0 ml # Bowel Movements 0 0 Objective Remarks GENERAL: Well-developed, cachectic and contracted. HEENT: Head is normocephalic without any lesions or masses noted. Facial features are symmetric. Eyes: Extraocular muscles are intact. Conjunctivae were clear. NECK: Trachea midline no deviation. CARDIAC: Regular rhythm, tachycardia noted. S1/S2 are heard. No murmurs gallops or rubs. LUNGS: Clear to auscultation bilaterally. No wheeze, rhonchi or rales. No use of accessory muscles on inspiration or expiration. ABDOMEN: Soft, nontender. Nondistended. Bowel sounds heard in all 4 quadrants. No organomegaly or masses. Negative rebound, negative guarding. PEG tube noted without any excoriation. EXTREMITIES: No edema, pulses are equal bilaterally. No cyanosis or clubbing. Procedures 07/19/16 EGD with PEG tube placement 09/27/16 colonoscopy Urinary Catheter: Yes Assessment to: Continue Kowalski insert reason: Obstruction/Retention Date of Insertion: Jul 01, 2017 Vascular Central Line Catheter: No A/P Assessment and Plan Low-grade fever , resolved Could be secondary to chronic indwelling Kowalski, Kowalski is changed monthly, however it is been noticed that he develops constitutional signs of infection around 3 weeks after Kowalski changed CBC does show low-grade leukocytosis, could be secondary to mild dehydration as seen on BMP, which has improved with IV hydration Replaced Kowalski and obtained clean urine sample Urinalysis does indicate urinary tract infection, Urine culture indicating immature growth, continue to follow until final for appropriate antibiotics Discontinued Levaquin 500 mg by mouth daily, per sensitivity results Patient was started on vancomycin and changed to amoxicillin per infectious disease will continue for a total of 14 days Infectious disease evaluated patient and made recommendations follow-up urinalysis was clear Neuro-Behcet, history of frontal lobe CVA, encephalopathy, history of meningitis , Blurred vision/double vision, urinary retention, chronic No new changes on imaging. Patient was followed by neurology. Aphasic at baseline. Continue Imuran, prednisone EEG shows mild to moderate slowing at times of various depending on the epoch , there was no epileptic activity seen Continue PT/OT Palliative care still following the patient. 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 07/01/17 --Decreased oral intake and dysphagia on initial presentation Speech therapy evaluated patient. S/P barium swallow. Patient with severe dysphagia. GI was consulted and PEG tube was placed. Dietary reconsulted for bolus feeding recommendations Start bolus feeding per dietary recommendations Coccyx decubitus. Ankle ulceration Wound care nurse is following the patient for management Patient with specialty bed Mood disorder, depression Psychiatry evaluated patient and made recommendations Prozac 40 mg daily Seroquel 25 mg at bedtime Diabetes Glucose continues to be well controlled, DVT Prophylaxis: Lovenox, TEDs/SCD Medical records were reviewed. Awaiting case management for discharge planning No change in current treatment plan. Discharge Planning Case management for discharge planning, Ede Richardson Jul 15, 2017 09:53
[2017-07-15] MEDS: predniSONE 20 MG TAB PEG SCH (09:56)
[2017-07-15] MEDS: ENOXAPARIN SODIUM 40 MG/0.4 ML SYRINGE SQ SCH (09:56)
[2017-07-15] MEDS: FLUoxetine HCL LIQUID 20 MG/5 ML CUP PEG SCH (09:57)
[2017-07-15] MEDS: LACTOBACILLUS ACIDOPHILUS TAB PEG SCH ×2 (09:57→21:34)
[2017-07-15] MEDS: LANSOPRAZOLE SOLUTAB 30 MG TAB PEG SCH ×2 (09:57→21:34)
[2017-07-15 20:00] VITALS: BP 104/68; PULSE 91; RESP 20; TEMP 96.9; O2SAT 97
[2017-07-15 20:12] VITALS: O2SAT 92
[2017-07-15] MEDS: QUEtiapine FUMARATE 25 MG TAB PO SCH (21:34)
[2017-07-15 23:00] VITALS: BP 98/76; PULSE 107; RESP 20; TEMP 97.4; O2SAT 93
[2017-07-16] MEDS: azaTHIOprine 50 MG TAB PEG SCH ×2 (05:08→18:43)
--- NOTE | 2017-07-16 07:43 | HHI.PR ---
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 Patient denies any new complaints. No change in clinical status. Bolus feeding was started yesterday without any complications. Patient remains afebrile. Vital signs are stable Objective Vitals Vital Signs Date Time Temp Pulse Resp B/P (MAP) Pulse Ox O2 Delivery O2 Flow Rate FiO2 07/15/17 23:00 97.4 107 20 98/76 (83) 93 07/15/17 20:12 92 21 07/15/17 20:00 96.9 91 20 104/68 (80) 97 07/15/17 09:00 96.7 90 18 124/87 (99) 98 I/O 07/15/17 07/15/17 07/15/17 07/16/17 07/16/17 07/16/17 07:00 15:00 23:00 07:00 15:00 23:00 Intake Total 1229 ml 1500 ml 960 ml Output Total 350 ml 200 ml 200 ml Balance 879 ml 1300 ml 760 ml Intake Oral 0 ml Tube Feeding 629 ml 720 ml 480 ml Tube Irrigant 200 ml Other 400 ml 780 ml 480 ml Output Urine Total 350 ml 200 ml 200 ml Gastric Drainage Total 0 ml Objective Remarks GENERAL: Well-developed, cachectic and contracted. HEENT: Head is normocephalic without any lesions or masses noted. Facial features are symmetric. Eyes: Extraocular muscles are intact. Conjunctivae were clear. NECK: Trachea midline no deviation. CARDIAC: Regular rhythm, tachycardia noted. S1/S2 are heard. No murmurs gallops or rubs. LUNGS: Clear to auscultation bilaterally. No wheeze, rhonchi or rales. No use of accessory muscles on inspiration or expiration. ABDOMEN: Soft, nontender. Nondistended. Bowel sounds heard in all 4 quadrants. No organomegaly or masses. Negative rebound, negative guarding. PEG tube noted without any excoriation. EXTREMITIES: No edema, pulses are equal bilaterally. No cyanosis or clubbing. Procedures 07/19/16 EGD with PEG tube placement 09/27/16 colonoscopy Urinary Catheter: Yes Assessment to: Continue Kowalski insert reason: Obstruction/Retention Date of Insertion: Jul 01, 2017 Vascular Central Line Catheter: No A/P Assessment and Plan Low-grade fever , resolved Could be secondary to chronic indwelling Kowalski, Kowalski is changed monthly, however it is been noticed that he develops constitutional signs of infection around 3 weeks after Kowalski changed CBC does show low-grade leukocytosis, could be secondary to mild dehydration as seen on BMP, which has improved with IV hydration Replaced Kowalski and obtained clean urine sample Urinalysis does indicate urinary tract infection, Urine culture indicating immature growth, continue to follow until final for appropriate antibiotics Discontinued Levaquin 500 mg by mouth daily, per sensitivity results Patient was started on vancomycin and changed to amoxicillin per infectious disease will continue for a total of 14 days, end date 07/20/17 Infectious disease evaluated patient and made recommendations follow-up urinalysis was clear Neuro-Behcet, history of frontal lobe CVA, encephalopathy, history of meningitis , Blurred vision/double vision, urinary retention, chronic No new changes on imaging. Patient was followed by neurology. Aphasic at baseline. Continue Imuran, prednisone EEG shows mild to moderate slowing at times of various depending on the epoch , there was no epileptic activity seen Continue PT/OT Palliative care still following the patient. 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 07/01/17 --Decreased oral intake and dysphagia on initial presentation Speech therapy evaluated patient. S/P barium swallow. Patient with severe dysphagia. GI was consulted and PEG tube was placed. Dietary reconsulted for bolus feeding recommendations Continue bolus feeding per dietary recommendations Coccyx decubitus. Ankle ulceration Wound care nurse is following the patient for management Patient with specialty bed Mood disorder, depression Psychiatry evaluated patient and made recommendations Prozac 40 mg daily Seroquel 25 mg at bedtime Diabetes Glucose continues to be well controlled, DVT Prophylaxis: Lovenox, TEDs/SCD Medical records were reviewed. No change in current treatment plan. Awaiting case management for discharge planning Discharge Planning Case management for discharge planning, Ede Richardson Jul 16, 2017 07:43
[2017-07-16] MEDS: SENNOSIDES SYRUP 8.8 MG/5 ML CUP PEG SCH (09:00)
[2017-07-16] MEDS: JUVEN POWDER 1 PACK G-TUBE SCH ×2 (09:00→20:13)
[2017-07-16 10:00] VITALS: BP 114/87; PULSE 88; RESP 18; O2SAT 98
[2017-07-16] MEDS: ENOXAPARIN SODIUM 40 MG/0.4 ML SYRINGE SQ SCH (10:56)
[2017-07-16] MEDS: LANSOPRAZOLE SOLUTAB 30 MG TAB PEG SCH ×2 (10:58→20:13)
[2017-07-16] MEDS: AMOXICILLIN 875 MG TAB PO SCH ×2 (10:58→20:12)
[2017-07-16] MEDS: LACTOBACILLUS ACIDOPHILUS TAB PEG SCH ×2 (10:58→20:12)
[2017-07-16] MEDS: predniSONE 20 MG TAB PEG SCH (10:58)
[2017-07-16] MEDS: FLUoxetine HCL LIQUID 20 MG/5 ML CUP PEG SCH (10:59)
[2017-07-16 19:15] VITALS: BP 117/76; PULSE 87; RESP 16; TEMP 97.7; O2SAT 95
[2017-07-16] MEDS: QUEtiapine FUMARATE 25 MG TAB PO SCH (20:13)
[2017-07-17] MEDS: azaTHIOprine 50 MG TAB PEG SCH ×2 (05:46→16:36)
[2017-07-17 07:50] VITALS: O2SAT 94
[2017-07-17 08:00] VITALS: BP 117/82; PULSE 87; RESP 17; TEMP 98.5; O2SAT 98
[2017-07-17] MEDS: JUVEN POWDER 1 PACK G-TUBE SCH ×2 (09:00→20:03)
[2017-07-17] MEDS: SENNOSIDES SYRUP 8.8 MG/5 ML CUP PEG SCH (09:00)
[2017-07-17] MEDS: AMOXICILLIN 875 MG TAB PO SCH ×2 (09:00→20:04)
--- NOTE | 2017-07-17 09:06 | HHI.PR ---
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 Patient denies any new complaints. No change in clinical status. Vital signs are stable, afebrile Objective Vitals Vital Signs Date Time Temp Pulse Resp B/P (MAP) Pulse Ox O2 Delivery O2 Flow Rate FiO2 07/16/17 19:15 97.7 87 16 117/76 (90) 95 07/16/17 10:00 88 18 114/87 (96) 98 I/O 07/16/17 07/16/17 07/16/17 07/17/17 07/17/17 07/17/17 07:00 15:00 23:00 07:00 15:00 23:00 Intake Total 960 ml 1000 ml 860 ml 1040 ml Output Total 200 ml 550 ml 600 ml Balance 760 ml 1000 ml 310 ml 440 ml Tube Feeding 480 ml 480 ml 240 ml 480 ml Tube Irrigant 60 ml 560 ml Other 480 ml 520 ml 560 ml Output Urine Total 200 ml 550 ml 600 ml # Bowel Movements 1 Objective Remarks GENERAL: Well-developed, cachectic and contracted. HEENT: Head is normocephalic without any lesions or masses noted. Facial features are symmetric. Eyes: Extraocular muscles are intact. Conjunctivae were clear. NECK: Trachea midline no deviation. CARDIAC: Regular rhythm, tachycardia noted. S1/S2 are heard. No murmurs gallops or rubs. LUNGS: Clear to auscultation bilaterally. No wheeze, rhonchi or rales. No use of accessory muscles on inspiration or expiration. ABDOMEN: Soft, nontender. Nondistended. Bowel sounds heard in all 4 quadrants. No organomegaly or masses. Negative rebound, negative guarding. PEG tube noted without any excoriation. EXTREMITIES: No edema, pulses are equal bilaterally. No cyanosis or clubbing. Procedures 07/19/16 EGD with PEG tube placement 09/27/16 colonoscopy Urinary Catheter: Yes Assessment to: Continue Kowalski insert reason: Obstruction/Retention Date of Insertion: Jul 01, 2017 Vascular Central Line Catheter: No A/P Assessment and Plan Low-grade fever , resolved Could be secondary to chronic indwelling Kowalski, Kowalski is changed monthly, however it is been noticed that he develops constitutional signs of infection around 3 weeks after Kowalski changed CBC does show low-grade leukocytosis, could be secondary to mild dehydration as seen on BMP, which has improved with IV hydration Replaced Kowalski and obtained clean urine sample Urinalysis does indicate urinary tract infection, Urine culture indicating immature growth, continue to follow until final for appropriate antibiotics Discontinued Levaquin 500 mg by mouth daily, per sensitivity results Patient was started on vancomycin and changed to amoxicillin per infectious disease will continue for a total of 14 days, end date 07/20/17 Infectious disease evaluated patient and made recommendations follow-up urinalysis was clear Neuro-Behcet, history of frontal lobe CVA, encephalopathy, history of meningitis , Blurred vision/double vision, urinary retention, chronic No new changes on imaging. Patient was followed by neurology. Aphasic at baseline. Continue Imuran, prednisone EEG shows mild to moderate slowing at times of various depending on the epoch , there was no epileptic activity seen Continue PT/OT Palliative care still following the patient. 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 07/01/17, next time would be 07/22/17 --Decreased oral intake and dysphagia on initial presentation Speech therapy evaluated patient. S/P barium swallow. Patient with severe dysphagia. GI was consulted and PEG tube was placed. Dietary reconsulted for bolus feeding recommendations Continue bolus feeding per dietary recommendations Coccyx decubitus. Ankle ulceration Wound care nurse is following the patient for management Patient with specialty bed Mood disorder, depression Psychiatry evaluated patient and made recommendations Prozac 40 mg daily Seroquel 25 mg at bedtime Diabetes Glucose continues to be well controlled, DVT Prophylaxis: Lovenox, TEDs/SCD Medical records were reviewed. Awaiting case management for discharge planning No change in current treatment plan. Discharge Planning Case management for discharge planning, Ede Richardson Jul 17, 2017 09:06
[2017-07-17] MEDS: FLUoxetine HCL LIQUID 20 MG/5 ML CUP PEG SCH (09:27)
[2017-07-17] MEDS: LACTOBACILLUS ACIDOPHILUS TAB PEG SCH ×2 (09:27→20:04)
[2017-07-17] MEDS: predniSONE 20 MG TAB PEG SCH (09:27)
[2017-07-17] MEDS: ENOXAPARIN SODIUM 40 MG/0.4 ML SYRINGE SQ SCH (09:28)
[2017-07-17] MEDS: LANSOPRAZOLE SOLUTAB 30 MG TAB PEG SCH ×2 (09:28→20:04)
--- NOTE | 2017-07-17 17:44 | HHI.HCPN ---
Reason for visit a. To assist with evaluation and management of symptoms including: debility , encephalopathy b. To assist medical decision maker(s) with: better understanding of current medical conditions; weighing benefits/burdens of medical treatment options; making medical treatment decisions. . Subjective/Interval History Patient seen and examined in his room. Reviewed the EMR. Patient appeared resting comfortably in no acute distress or discomfort. Upon entrance into the room patient was very emotional and tearful. Patient is nonverbal. Appears to be denying pain by shaking head for "no pain". Remains afebrile. Vital signs stable. Laboratory workup: * 07/05/17 CBC-WBC 8.6, hemoglobin 12.4, hematocrit 38.4, platelet count 228 * 07/05/17 BMP-sodium 140, potassium 3.8, BUN/creatinine 22/0.70, random glucose 135, calcium 9.1 * 07/09/17 low-grade [id number] not indicated Last case management note on 07/17/17 indicates that they are communicating with the patient's mother in [place] who is willing to care for patient in [place]. . Family/friend interactions No family at bedside . Advance Directives Living Will: Never completed Health Care Surrogate: Copy in medical record Durable Power of Duct Cleaner: Never completed Advance Directive Specifics Health Care Surrogate(s): Patricia Harrell . Objective Vital Signs Date Time Temp Pulse Resp B/P (MAP) Pulse Ox O2 Delivery O2 Flow Rate FiO2 07/17/17 08:00 98.5 87 17 117/82 (94) 98 07/17/17 07:50 94 21 07/16/17 19:15 97.7 87 16 117/76 (90) 95 Intake & Output 07/17/17 07/17/17 07:00 19:00 Intake Total 1400 ml Output Total 600 ml 175 ml Balance 800 ml -175 ml Tube Feeding 480 ml Tube Irrigant 620 ml Other 300 ml Output Urine Total 600 ml 175 ml # Bowel Movements 1 Physical Exam CONSTITUTIONAL/GENERAL: This is a frail, middle aged male patient, unable to verbalize, able to nod head yes or no to simple questions. TUBES/LINES/DRAINS: PEG tube, indwelling Kowalski catheter SKIN: No jaundice. Skin temperature appropriate. Not diaphoretic. EYES: Pupils equal and round and reactive. Nystagmus, able to move eyes up and down on command. ENT: Hearing grossly normal. Nose without bleeding or purulent drainage. Copious oral secretions CARDIOVASCULAR: Regular rate and rhythm. No Murmurs, gallops, or rubs. No JVD. Peripheral pulses symmetric. RESPIRATORY/CHEST: Rhonchi to auscultation. GASTROINTESTINAL: Abdomen soft, non-tender, nondistended. PEG tube in place- currently clamped No guarding. Positive bowel sounds 4 quadrants GENITOURINARY: Without palpable bladder distension. Clear yellow urine MUSCULOSKELETAL: Extremities without clubbing, cyanosis, or edema. Muscle wasting noted. Contractures in all four extremities. NEUROLOGICAL: Has some purposeful movement, moving eyes upward to indicate yes, and gazing downward to indicate no. No obvious anxiety/agitation on exam. . Diagnostic Tests Procedures -08/19/16 -PEG tube placement -08/17/16- lumbar puncture -10/11/16ultrasound guided aspiration, right hip region. . 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 Now bed bound , completely dependent for all ADLs. Receiving artificial nutrition via PEG tube. Flexion contractures in bilateral lower extremities. (2) Encephalopathy Comment: Patient with diagnosis of neuro-behcet. Patient is bed bound, non- verbal. Eyes are open, but do not track. Pertinent Non-Medical Issues Psychosocial: Reported as . Documented as single in EMR. Patient reportedly has multiple children. Spiritual: No spiritual affiliations. Legal: Patricia Harrell presented as and has been acting as healthcare proxy. Ethical issues impacting care: Patricia Harrell presented as and has been acting as healthcare proxy. . Important Contacts Patricia Mendoza. [phone]. . Prognosis Mr. Mendoza is a 47-year-old male with a past medical history of neuro-Behet' s syndrome diagnosed at [facility], left frontal CVA discovered in November 2015, diabetes mellitus type 2, mural thrombus, brain abscess in 2014, meningitis, hypertension and bedbound state. Patient presented to the ED on 08/13/16 via EMS were reports of decreased oral intake for the prior 2-3 days and skin tear to left upper extremity. He was admitted for sepsis. Patient is at high risk for further complications/setbacks, continued decline and . Code Status: Full Code Plan * FULL CODE * DECISION MAKING: Patient consistently reaffirms that if he should lose capacity, he wishes for Tianalexis Harrell to act as the [facility] decision maker. * GOALS OF CARE: Aggressive. * Discussed patient with bedside RN * Per CM note by Gustavo Louis, legal is currently working with the [facility] consulate to establish passport/travel issues so the patient can be transferred back to [place] to be cared for by his mother. * SYMPTOMS: * =debility: Multifactorial, PT following and working with the patient, passive ROM exercises performed during PT sessions as patient has minimal capability to participate, with only the ability to slightly participation with the LUE. * =dysphagia: Secondary to neuro-Behet's syndrome, S/P PEG tube placement , receiving bolus TF, NPO indefinitely secondary to disease process and ongoing risk of aspiration. * Palliative care will continue to follow-up with this patient as needed, but goals of care is firmly established and it remains aggressive . Attestation To help prompt me to consider important information that might be impacting today's encounter and assessment, information from prior notes written by myself or my colleagues may have been "brought forward" into today's note. My signature on this note, however, is an attestation that I personally performed the exam, history, and/or decision-making noted today, and, unless otherwise indicated, the interactions with patient, family, and staff as well as the review of records all occurred today. I also attest that the listed assessment and stated plan reflect my best clinical judgment today based on the combination of historical information, prior notes, and today's exam/ interactions. When time spent is documented, it refers only to time spent today by the signer, or if indicated, combined time spent today by collaborating physician/nurse practitioner. Mercy Weaver Jul 17, 2017 17:44
[2017-07-17 20:00] VITALS: BP_SYST 97; PULSE 81; RESP 16; TEMP 96.5; O2SAT 97
[2017-07-17] MEDS: QUEtiapine FUMARATE 25 MG TAB PO SCH (20:04)
[2017-07-18] MEDS: azaTHIOprine 50 MG TAB PEG SCH ×2 (06:28→18:16)
[2017-07-18 08:00] VITALS: BP 138/96; PULSE 122; RESP 19; TEMP 98.7; O2SAT 96
[2017-07-18 08:22] VITALS: O2SAT 97
[2017-07-18] MEDS: JUVEN POWDER 1 PACK G-TUBE SCH ×2 (09:49→21:12)
[2017-07-18] MEDS: ENOXAPARIN SODIUM 40 MG/0.4 ML SYRINGE SQ SCH (09:49)
[2017-07-18] MEDS: predniSONE 20 MG TAB PEG SCH (09:49)
[2017-07-18] MEDS: LANSOPRAZOLE SOLUTAB 30 MG TAB PEG SCH ×2 (09:50→21:12)
[2017-07-18] MEDS: SENNOSIDES SYRUP 8.8 MG/5 ML CUP PEG SCH (09:50)
[2017-07-18] MEDS: FLUoxetine HCL LIQUID 20 MG/5 ML CUP PEG SCH (09:50)
[2017-07-18] MEDS: AMOXICILLIN 875 MG TAB PO SCH ×2 (09:50→21:12)
[2017-07-18] MEDS: LACTOBACILLUS ACIDOPHILUS TAB PEG SCH ×2 (09:50→21:12)
--- NOTE | 2017-07-18 10:29 | HHI.PR ---
Subjective Remarks Follow-up neuro-Behcet's syndrome. Patient seen and examined, lying in bed. RN at bedside. Patient is tearful this morning, indicating that his eyes are blurry. Patient denies that this is a new occurrence. Denies any pain. Vitals are stable. Objective Vitals Vital Signs Date Time Temp Pulse Resp B/P (MAP) Pulse Ox O2 Delivery O2 Flow Rate FiO2 07/18/17 08:22 97 21 07/18/17 08:00 98.7 122 19 138/96 (110) 96 07/17/17 20:00 96.5 81 16 97/ 97 I/O 07/17/17 07/17/17 07/17/17 07/18/17 07/18/17 07/18/17 07:00 15:00 23:00 07:00 15:00 23:00 Intake Total 1040 ml 670 ml Output Total 600 ml 175 ml 600 ml Balance 440 ml -175 ml 70 ml Tube Feeding 480 ml 240 ml Tube Irrigant 560 ml 430 ml Output Urine Total 600 ml 175 ml 600 ml # Bowel Movements 1 1 Imaging Last Impressions Chest X-Ray 06/01/17 1118 Signed Impressions: Service Date/Time: May 11:33 - CONCLUSION: Bibasilar patchy infiltrates. Gen Potter MD Hip Aspiration/Injection 10/08/16 0000 Signed Impressions: Service Date/Time: Tuesday, October 11, 2016 13:41 - CONCLUSION: Uncomplicated aspiration as above. Minimal fluid on the right. No identifiable fluid on the left Clayton Max MD Lower Extremity Ultrasound 10/06/16 0000 Signed Impressions: Service Date/Time: September 17:29 - CONCLUSION: Normal examination. Josafat Meyer MD CT Angiography 10/06/16 0000 Signed Impressions: Service Date/Time: September 20:31 - CONCLUSION: Minimal right upper lobe infiltrate and basilar atelectasis. No evidence of pulmonary embolism.. Josafat Meyer MD Abdomen/Pelvis CT 10/06/16 0000 Signed Impressions: Service Date/Time: September 20:31 - CONCLUSION: No evidence of pelvic abscess. Josafat Meyer MD Upper Extremity Ultrasound 09/28/16 0000 Signed Impressions: Service Date/Time: Wednesday, September 28, 2016 19:15 - CONCLUSION: 1. Occlusive superficial thrombosis in the left cephalic vein near the antecubital fossa. No deep venous thrombosis. Sumit Bourgeois MD Renal Ultrasound 08/28/16 0000 Signed Impressions: Service Date/Time: Sunday, August 28, 2016 20:03 - CONCLUSION: Mild increased echotexture of both kidneys. Baldev Vu MD Lumbar Puncture Fluoroscopy 08/17/16 0000 Signed Impressions: Service Date/Time: Wednesday, August 17, 2016 12:26 - CONCLUSION: Uncomplicated fluoroscopically guided lumbar puncture. Vishal Beckford Jr., MD Brain MRI 08/17/16 0000 Signed Impressions: Service Date/Time: Wednesday, August 17, 2016 13:28 - CONCLUSION: Remote long-standing areas of abnormality in the brainstem and middle cerebellar peduncle consistent with remote infarcts or contusion. No acute intracranial abnormality. Chacho Bright MD Abdomen X-Ray 08/17/16 Signed Impressions: Service Date/Time: Wednesday, August 17, 2016 13:02 - CONCLUSION: No evidence of obstruction. No MRI incompatible foreign body is identified. Chacho Bright MD Head CT 08/16/16 Signed Impressions: Service Date/Time: Tuesday, August 16, 2016 09:55 - CONCLUSION: Chronic ischemic changes left frontal lobe possibly from evidence of previous ventriculostomy placement, unchanged. No acute intracranial abnormality. Gen Potter MD Modified Barium Swallow 08/15/16 0000 Signed Impressions: Service Date/Time: Monday, August 15, 2016 00:00 - CONCLUSION: See report above and speech pathology report Chacho Bright MD Objective Remarks GENERAL: Well-developed cachectic and contracted male patient in NAD. Awake and alert. Nodding appropriately. SKIN: Warm and dry. No rash. HEENT: Normocephalic. Atraumatic. Pupils equal and round. No scleral icterus. No injection or drainage. No nasal bleeding or discharge. Mucous membranes pink and moist. NECK: Supple. Trachea midline. CARDIOVASCULAR: Regular rate and rhythm. S1, S2 noted. No murmur appreciated. RESPIRATORY: No accessory muscle use. Course and rhonchi throughout lung lawson. Breath sounds equal bilaterally. GASTROINTESTINAL: Abdomen soft, non-tender, nondistended. Normoactive bowel sounds x4. No guarding. PEG tube noted, no erythema or drainage from site, c/d/ i. MUSCULOSKELETAL: No obvious deformities. Extremities without clubbing, cyanosis , or edema. Procedures 07/19/16 EGD with PEG tube placement 09/27/16 colonoscopy Date of Insertion: Jul 01, 2017 A/P Problem List: (1) Neurologic type Behcet's syndrome ICD Code: M35.2 - Behcet's disease Status: Chronic (2) Hospital acquired PNA ICD Code: J18.9 - Pneumonia, unspecified organism Status: Resolved (3) Sepsis ICD Code: A41.9 - Sepsis, unspecified organism Status: Resolved (4) Encephalopathy ICD Code: G93.40 - Encephalopathy, unspecified Status: Resolved (5) GI bleed ICD Code: K92.2 - Gastrointestinal hemorrhage, unspecified Status: Resolved (6) HCAP (healthcare-associated pneumonia) ICD Code: J18.9 - Pneumonia, unspecified organism Status: Resolved (7) UTI (urinary tract infection) ICD Code: N39.0 - Urinary tract infection, site not specified Status: Resolved (8) Leucocytosis ICD Code: D72.829 - Elevated white blood cell count, unspecified Status: Resolved (9) Fever ICD Code: R50.9 - Fever, unspecified Status: Resolved (10) Effusion of hip joint ICD Code: M25.459 - Effusion, unspecified hip Status: Acute (11) 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, unspecified Status: Acute (12) Blurred vision, bilateral ICD Code: H53.8 - Other visual disturbances Status: Acute (13) Bacterial conjunctivitis of left eye ICD Code: H10.9 - Unspecified conjunctivitis Assessment and Plan Low-grade fever , resolved Could be secondary to chronic indwelling Kowalski Kowalski is changed monthly, however it is been noticed that he develops constitutional signs of infection around 3 weeks after Kowalski changed CBC does show low-grade leukocytosis, could be secondary to mild dehydration as seen on BMP, which has improved with IV hydration Replaced Kowalski and obtained clean urine sample (07/01/17). Urine culture growing group D enterococcus and Staphylococcus epidermidis. Will discontinue Levaquin 500 mg by mouth daily, not sensitive. ID following. DC Vanco. Staph epi likely contaminant, Enterococcus sensitive to pcn. Continue PO Ampicillin. Repeat UA clean. Neuro-Behcet, history of frontal lobe CVA, encephalopathy, history of meningitis , Blurred vision/double vision, urinary retention, chronic No new changes on imaging. Patient was followed by neurology. Aphasic at baseline. Continue Imuran, prednisone EEG shows mild to moderate slowing at times of various depending on the epoch , there was no epileptic activity seen Continue PT/OT Palliative care still following the patient. 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 07/01/17 --Decreased oral intake and dysphagia on initial presentation Speech therapy evaluated patient. S/P barium swallow. Patient with severe dysphagia. GI was consulted and PEG tube was placed. Patient was intolerant to bolus feeding Dietary reconsulted and made recommendations Coccyx decubitus. Ankle ulceration Wound care nurse is following the patient for management, last seen 07/05/17 Patient with specialty bed Mood disorder, depression Psychiatry evaluated patient and made recommendations Prozac 40 mg daily Seroquel 25 mg at bedtime Diabetes Glucose continues to be well controlled, DVT Prophylaxis: Lovenox, TEDs/SCD Medical records were reviewed. Awaiting case management for discharge planning No change in current treatment plan. Discharge Planning Case management assisting. Problem Qualifiers (1) GI bleed: (2) UTI (urinary tract infection): (3) Effusion of hip joint: Dotty Pacheco Jul 18, 2017 10:29
[2017-07-18 20:00] VITALS: BP 133/72; PULSE 111; RESP 20; TEMP 99.4; O2SAT 98
[2017-07-18] MEDS: QUEtiapine FUMARATE 25 MG TAB PO SCH (21:12)
[2017-07-18] MEDS: HYOSCYAMINE SOLN 0.125 MG/ML 15 ML BTL PEG PRN (21:19)
[2017-07-19] MEDS: azaTHIOprine 50 MG TAB PEG SCH ×2 (06:37→17:28)
[2017-07-19 08:00] VITALS: BP 111/75; PULSE 101; RESP 24; TEMP 100.9; O2SAT 96
[2017-07-19] MEDS: ENOXAPARIN SODIUM 40 MG/0.4 ML SYRINGE SQ SCH (08:56)
[2017-07-19] MEDS: predniSONE 20 MG TAB PEG SCH (08:56)
[2017-07-19] MEDS: LACTOBACILLUS ACIDOPHILUS TAB PEG SCH ×2 (08:57→22:38)
[2017-07-19] MEDS: AMOXICILLIN 875 MG TAB PO SCH ×2 (08:57→22:38)
[2017-07-19] MEDS: FLUoxetine HCL LIQUID 20 MG/5 ML CUP PEG SCH (08:57)
[2017-07-19] MEDS: SENNOSIDES SYRUP 8.8 MG/5 ML CUP PEG SCH (08:57)
[2017-07-19] MEDS: LANSOPRAZOLE SOLUTAB 30 MG TAB PEG SCH ×2 (08:57→22:39)
[2017-07-19] MEDS: JUVEN POWDER 1 PACK G-TUBE SCH ×2 (09:00→22:39)
[2017-07-19] MEDS: HYOSCYAMINE SOLN 0.125 MG/ML 15 ML BTL PEG PRN (09:00)
[2017-07-19 11:30] LABS: BILIRUBIN, URINE NEG (NEG); BLOOD, URINE SMALL (NEG); GLUCOSE,URINE NEG (NEG); KETONE, URINE NEG (NEG); NITRITE,URINE NEG (NEG); URINE LEUKOCYTE ESTERASE TRACE (NEG)
[2017-07-19 11:41] LABS: URINE COLOR YELLOW (YELLW/STRAW)
[2017-07-19 11:42] LABS: CALCIUM OXALATE CRYSTALS,URINE MOD /hpf; RBC, URINE 15-19 /hpf (0-3)
[2017-07-19 11:54] LABS: AUTOMATED NEUTROPHIL # 7.4 TH/MM3 (1.8-7.7); BASOPHIL # 0.1 TH/MM3 (0-0.2); BASOPHIL % 1.6 % (0.0-2.0); EOSINOPHIL % 0.1 % (0.0-4.0); HEMOGLOBIN 12.3 GM/DL (13.0-17.0); LYMPH % 6.5 % (9.0-44.0); LYMPHOCYTE # 0.6 TH/MM3 (1.0-4.8); MEAN CELL VOLUME 94.5 FL (80.0-100.0); MEAN CORPUSCULAR HEMOGLOBIN 30.6 PG (27.0-34.0); MEAN CORPUSCULAR HGB CONC 32.3 % (32.0-36.0); MEAN PLATELET VOLUME 8.9 FL (7.0-11.0); MONO % 4.1 % (0.0-8.0); MONOCYTE # 0.4 TH/MM3 (0-0.9); NEUT % 87.7 % (16.0-70.0); PLATELET COUNT 261 TH/MM3 (150-450); RED BLOOD COUNT 4.02 MIL/MM3 (4.50-5.90); RED CELL DISTRIBUTION WIDTH 15.5 % (11.6-17.2); WHITE BLOOD COUNT 8.5 TH/MM3 (4.0-11.0)
[2017-07-19 12:00] VITALS: TEMP 99
[2017-07-19 12:05] LABS: CHLORIDE 103 MEQ/L (98-107); SODIUM (NA) 139 MEQ/L (136-145)
[2017-07-19 12:09] LABS: CALCIUM 8.4 MG/DL (8.5-10.1)
[2017-07-19 12:10] LABS: ALBUMIN 2.9 GM/DL (3.4-5.0); BLOOD UREA NITROGEN 25 MG/DL (7-18); GLUCOSE,RANDOM 177 MG/DL (74-106)
[2017-07-19 12:13] LABS: ALT (GPT) 38 U/L (12-78); AST (GOT) 14 U/L (15-37); GLOMERULAR FILTRATION RATE 111 ML/MIN (>89)
[2017-07-19 12:15] LABS: TOTAL BILIRUBIN ADULT 0.3 MG/DL (0.2-1.0); TOTAL PROTEIN 6.4 GM/DL (6.4-8.2)
[2017-07-19 12:16] LABS: ALKALINE PHOSPHATASE 63 U/L (45-117)
--- NOTE | 2017-07-19 13:44 | RADRPT ---
EXAM DATE/TIME: 07/19/2017 13:15 [facility] COMPARISON: CHEST SINGLE AP, June 01, 2017, 11:33. INDICATIONS : Short of breath MEDICAL HISTORY : Hypertension. CVA. Migraines. Numbness bilateral hands. Depression. SURGICAL HISTORY : Abdominal surgery ENCOUNTER: Subsequent ACUITY: 1 day PAIN SCORE: 0/10 LOCATION: Bilateral chest FINDINGS: Mild compensated cardiomegaly. Minimal probable changes right lower lobe tubular inflammatory proces s. Left lung is clear. CONCLUSION: Compensated cardiomegaly with peribronchial thickening and probable early infiltrate right lower lobe . Conrad Stewart MD FACR on July 19, 2017 at 13:41 Board Certified Radiologist. This report was verified electronically.
--- NOTE | 2017-07-19 15:09 | HHI.PR ---
Subjective Remarks Follow-up neuro-Behcet's syndrome. Patient seen and examined, lying in bed sleeping. Awakens to voice. Does not look to be in any apparent distress. Vital signs are stable right now. Fever overnight. Cultures obtained. Objective Vitals Vital Signs Date Time Temp Pulse Resp B/P (MAP) Pulse Ox O2 Delivery O2 Flow Rate FiO2 07/19/17 12:00 99.0 07/19/17 08:00 100.9 101 24 111/75 (87) 96 07/18/17 20:00 99.4 111 20 133/72 (92) 98 I/O 07/18/17 07/18/17 07/18/17 07/19/17 07/19/17 07/19/17 07:00 15:00 23:00 07:00 15:00 23:00 Intake Total 670 ml 2560 ml 200 ml 1000 ml Output Total 600 ml 425 ml Balance 70 ml 2560 ml -225 ml 1000 ml Intake Oral 0 ml Tube Feeding 240 ml 1200 ml 480 ml Tube Irrigant 430 ml 1360 ml 200 ml Other 520 ml Output Urine Total 600 ml 425 ml # Bowel Movements 1 0 Result Diagram: 07/19/17 1138 07/19/17 1138 Objective Remarks GENERAL: Well-developed cachectic and contracted male patient in NAD. Awake and alert. Nodding appropriately. SKIN: Warm and dry. No rash. HEENT: Normocephalic. Atraumatic. Pupils equal and round. No scleral icterus. No injection or drainage. No nasal bleeding or discharge. Mucous membranes pink and moist. NECK: Supple. Trachea midline. CARDIOVASCULAR: Regular rate and rhythm. S1, S2 noted. No murmur appreciated. RESPIRATORY: No accessory muscle use. Course and rhonchi throughout lung [place]. Breath sounds equal bilaterally. GASTROINTESTINAL: Abdomen soft, non-tender, nondistended. Normoactive bowel sounds x4. No guarding. PEG tube noted, no erythema or drainage from site, c/d/ i. MUSCULOSKELETAL: No obvious deformities. Extremities without clubbing, cyanosis , or edema. Procedures 07/19/16 EGD with PEG tube placement 09/27/16 colonoscopy Date of Insertion: Jul 01, 2017 A/P Problem List: (1) Neurologic type Behcet's syndrome ICD Code: M35.2 - Behcet's disease Status: Chronic (2) Hospital acquired PNA ICD Code: J18.9 - Pneumonia, unspecified organism Status: Resolved (3) Sepsis ICD Code: A41.9 - Sepsis, unspecified organism Status: Resolved (4) Encephalopathy ICD Code: G93.40 - Encephalopathy, unspecified Status: Resolved (5) GI bleed ICD Code: K92.2 - Gastrointestinal hemorrhage, unspecified Status: Resolved (6) HCAP (healthcare-associated pneumonia) ICD Code: J18.9 - Pneumonia, unspecified organism Status: Resolved (7) UTI (urinary tract infection) ICD Code: N39.0 - Urinary tract infection, site not specified Status: Resolved (8) Leucocytosis ICD Code: D72.829 - Elevated white blood cell count, unspecified Status: Resolved (9) Fever ICD Code: R50.9 - Fever, unspecified Status: Resolved (10) Effusion of hip joint ICD Code: M25.459 - Effusion, unspecified hip Status: Acute (11) 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, unspecified Status: Acute (12) Blurred vision, bilateral ICD Code: H53.8 - Other visual disturbances Status: Acute (13) Bacterial conjunctivitis of left eye ICD Code: H10.9 - Unspecified conjunctivitis Assessment and Plan Low-grade fever , resolved Could be secondary to chronic indwelling Kowalski Kowalski is changed monthly, however it is been noticed that he develops constitutional signs of infection around 3 weeks after Kowalski changed CBC does show low-grade leukocytosis, could be secondary to mild dehydration as seen on BMP, which has improved with IV hydration Replaced Kowalski and obtained clean urine sample (07/01/17). Urine culture growing group D enterococcus and Staphylococcus epidermidis. Will discontinue Levaquin 500 mg by mouth daily, not sensitive. ID following. DC Vanco. Staph epi likely contaminant, Enterococcus sensitive to pcn. Continue PO Ampicillin. Repeat UA clean. Neuro-Behcet, history of frontal lobe CVA, encephalopathy, history of meningitis , Blurred vision/double vision, urinary retention, chronic No new changes on imaging. Patient was followed by neurology. Aphasic at baseline. Continue Imuran, prednisone EEG shows mild to moderate slowing at times of various depending on the epoch , there was no epileptic activity seen Continue PT/OT Palliative care still following the patient. 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 07/01/17 --Decreased oral intake and dysphagia on initial presentation Speech therapy evaluated patient. S/P barium swallow. Patient with severe dysphagia. GI was consulted and PEG tube was placed. Patient was intolerant to bolus feeding Dietary reconsulted and made recommendations Coccyx decubitus. Ankle ulceration Wound care nurse is following the patient for management, last seen 07/05/17 Patient with specialty bed Mood disorder, depression Psychiatry evaluated patient and made recommendations Prozac 40 mg daily Seroquel 25 mg at bedtime Diabetes Glucose continues to be well controlled, DVT Prophylaxis: Lovenox, TEDs/SCD Medical records were reviewed. Awaiting case management for discharge planning No change in current treatment plan. Discharge Planning Case management assisting. Problem Qualifiers (1) GI bleed: (2) UTI (urinary tract infection): (3) Effusion of hip joint: Dotty Pacheco Jul 19, 2017 15:09
[2017-07-19 16:00] VITALS: TEMP 98.4
[2017-07-19] MEDS: QUEtiapine FUMARATE 25 MG TAB PO SCH (22:39)
[2017-07-20] VITALS: BP 115/75; PULSE 99; RESP 20; TEMP 96.1; O2SAT 96
[2017-07-20] MEDS: azaTHIOprine 50 MG TAB PEG SCH ×2 (06:09→17:30)
[2017-07-20 08:00] VITALS: BP 119/66; PULSE 106; RESP 24; TEMP 100.1; O2SAT 95
[2017-07-20] MEDS: JUVEN POWDER 1 PACK G-TUBE SCH ×2 (09:00→21:00)
[2017-07-20] MEDS: FLUoxetine HCL LIQUID 20 MG/5 ML CUP PEG SCH (09:48)
[2017-07-20] MEDS: predniSONE 20 MG TAB PEG SCH (09:48)
[2017-07-20] MEDS: AMOXICILLIN 875 MG TAB PO SCH (09:48)
[2017-07-20] MEDS: LANSOPRAZOLE SOLUTAB 30 MG TAB PEG SCH ×2 (09:48→22:47)
[2017-07-20] MEDS: ENOXAPARIN SODIUM 40 MG/0.4 ML SYRINGE SQ SCH (09:49)
[2017-07-20] MEDS: SENNOSIDES SYRUP 8.8 MG/5 ML CUP PEG SCH (09:49)
[2017-07-20] MEDS: LACTOBACILLUS ACIDOPHILUS TAB PEG SCH ×2 (09:49→22:47)
[2017-07-20 12:00] VITALS: TEMP 101.1
--- NOTE | 2017-07-20 13:03 | HHI.PR ---
Subjective Remarks Follow-up neuro-Behcet's syndrome. Patient seen and examined, lying in bed comfortably. Patient does complaint of right lower quadrant abdominal pain to palpation. Spoke to RN with increased residuals. No vomiting. Otherwise patient is doing well, with no other complaints. Vital signs are stable. TMAX 100.1. Objective Vitals Vital Signs Date Time Temp Pulse Resp B/P (MAP) Pulse Ox O2 Delivery O2 Flow Rate FiO2 07/20/17 08:00 100.1 106 24 119/66 (83) 95 07/20/17 00:00 96.1 99 20 115/75 (88) 96 07/19/17 16:00 98.4 I/O 07/19/17 07/19/17 07/19/17 07/20/17 07/20/17 07/20/17 07:00 15:00 23:00 07:00 15:00 23:00 Intake Total 200 ml 1000 ml 870 ml 960 ml Output Total 425 ml 750 ml 375 ml Balance -225 ml 1000 ml 120 ml 585 ml Intake Oral 0 ml Tube Feeding 480 ml 480 ml 480 ml Tube Irrigant 200 ml Other 520 ml 390 ml 480 ml Output Urine Total 425 ml 750 ml 375 ml # Bowel Movements 0 0 0 Result Diagram: 07/19/17 1138 07/19/17 1138 Imaging Last Impressions Chest X-Ray 07/19/17 0000 Signed Impressions: Service Date/Time: Wednesday, July 19, 2017 13:15 - CONCLUSION: Compensated cardiomegaly with peribronchial thickening and probable early infiltrate right lower lobe. Conrad Stewart MD FACR Hip Aspiration/Injection 10/08/16 0000 Signed Impressions: Service Date/Time: Tuesday, October 11, 2016 13:41 - CONCLUSION: Uncomplicated aspiration as above. Minimal fluid on the right. No identifiable fluid on the left Clayton Max MD Lower Extremity Ultrasound 10/06/16 0000 Signed Impressions: Service Date/Time: September 17:29 - CONCLUSION: Normal examination. Josafat Meyer MD CT Angiography 10/06/16 0000 Signed Impressions: Service Date/Time: September 20:31 - CONCLUSION: Minimal right upper lobe infiltrate and basilar atelectasis. No evidence of pulmonary embolism.. Josafat Meyer MD Abdomen/Pelvis CT 10/06/16 Signed Impressions: Service Date/Time: September 20:31 - CONCLUSION: No evidence of pelvic abscess. Josafat Meyer MD Upper Extremity Ultrasound 09/28/16 Signed Impressions: Service Date/Time: Wednesday, September 28, 2016 19:15 - CONCLUSION: 1. Occlusive superficial thrombosis in the left cephalic vein near the antecubital fossa. No deep venous thrombosis. Sumit Bourgeois MD Renal Ultrasound 08/28/16 Signed Impressions: Service Date/Time: Sunday, August 28, 2016 20:03 - CONCLUSION: Mild increased echotexture of both kidneys. Baldev Vu MD Lumbar Puncture Fluoroscopy 08/17/16 Signed Impressions: Service Date/Time: Wednesday, August 17, 2016 12:26 - CONCLUSION: Uncomplicated fluoroscopically guided lumbar puncture. Vishal Beckford Jr., MD Brain MRI 08/17/16 Signed Impressions: Service Date/Time: Wednesday, August 17, 2016 13:28 - CONCLUSION: Remote long-standing areas of abnormality in the brainstem and middle cerebellar peduncle consistent with remote infarcts or contusion. No acute intracranial abnormality. Chacho Bright MD Abdomen X-Ray 08/17/16 Signed Impressions: Service Date/Time: Wednesday, August 17, 2016 13:02 - CONCLUSION: No evidence of obstruction. No MRI incompatible foreign body is identified. Chacho Bright MD Head CT 08/16/16 Signed Impressions: Service Date/Time: Tuesday, August 16, 2016 09:55 - CONCLUSION: Chronic ischemic changes left frontal lobe possibly from evidence of previous ventriculostomy placement, unchanged. No acute intracranial abnormality. Gen Potter MD Modified Barium Swallow 08/15/16 0000 Signed Impressions: Service Date/Time: Monday, August 15, 2016 00:00 - CONCLUSION: See report above and speech pathology report Chacho Bright MD Objective Remarks GENERAL: Well-developed cachectic and contracted male patient in NAD. Awake and alert. Nodding appropriately. SKIN: Warm and dry. No rash. HEENT: Normocephalic. Atraumatic. Pupils equal and round. No scleral icterus. No injection or drainage. No nasal bleeding or discharge. Mucous membranes pink and moist. NECK: Supple. Trachea midline. CARDIOVASCULAR: Regular rate and rhythm. S1, S2 noted. No murmur appreciated. RESPIRATORY: No accessory muscle use. Course and rhonchi throughout lung [place]. Breath sounds equal bilaterally. GASTROINTESTINAL: Abdomen soft, non-tender, nondistended. Normoactive bowel sounds x4. No guarding. PEG tube noted, no erythema or drainage from site, c/d/ i. MUSCULOSKELETAL: No obvious deformities. Extremities without clubbing, cyanosis , or edema. 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: Chronic (2) Hospital acquired PNA ICD Code: J18.9 - Pneumonia, unspecified organism Status: Resolved (3) Sepsis ICD Code: A41.9 - Sepsis, unspecified organism Status: Resolved (4) Encephalopathy ICD Code: G93.40 - Encephalopathy, unspecified Status: Resolved (5) GI bleed ICD Code: K92.2 - Gastrointestinal hemorrhage, unspecified Status: Resolved (6) HCAP (healthcare-associated pneumonia) ICD Code: J18.9 - Pneumonia, unspecified organism Status: Resolved (7) UTI (urinary tract infection) ICD Code: N39.0 - Urinary tract infection, site not specified Status: Resolved (8) Leucocytosis ICD Code: D72.829 - Elevated white blood cell count, unspecified Status: Resolved (9) Fever ICD Code: R50.9 - Fever, unspecified Status: Resolved (10) Effusion of hip joint ICD Code: M25.459 - Effusion, unspecified hip Status: Acute (11) 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 Kowalski is changed monthly, however it is been noticed that he develops constitutional signs of infection around 3 weeks after Kowalski changed. Replaced Kowalski and obtained clean urine sample (07/01/17). CBC does not show leukocytosis. CMP unremarkable. Urine culture growing group D enterococcus and Staphylococcus epidermidis on 07/01/17. ID following. DC Vanco. Staph epi likely contaminant, Enterococcus sensitive to pcn. Continue PO Ampicillin. Repeat UA clean. Patient finished amoxicillin today. Awaiting urine culture growth. Follow. Blood cultures negative to date. Follow. Neuro-Behcet, history of frontal lobe CVA, encephalopathy, history of meningitis , Blurred vision/double vision, urinary retention, chronic No new changes on imaging. Patient was followed by neurology. Aphasic at baseline. Continue Imuran, prednisone EEG shows mild to moderate slowing at times of various depending on the epoch , there was no epileptic activity seen Continue PT/OT Palliative care still following the patient. 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 07/01/17 --Decreased oral intake and dysphagia on initial presentation Speech therapy evaluated patient. S/P barium swallow. Patient with severe dysphagia. GI was consulted and PEG tube was placed. Patient was intolerant to bolus feeding Dietary reconsulted and made recommendations Coccyx decubitus. Ankle ulceration Wound care nurse is following the patient for management, last seen 07/05/17 Patient with specialty bed Mood disorder, depression Psychiatry evaluated patient and made recommendations Prozac 40 mg daily Increased Seroquel to 50 mg at bedtime, patient has been tearful and sobbing intermittently every day. Diabetes Glucose continues to be well controlled, DVT Prophylaxis: Lovenox, TEDs/SCD Medical records were reviewed. Awaiting case management for discharge planning No change in current treatment plan. Discharge Planning Case management assisting. Problem Qualifiers (1) GI bleed: (2) UTI (urinary tract infection): (3) Effusion of hip joint: Dotty Pacheco Jul 20, 2017 13:03
[2017-07-20] MEDS: ACETAMINOPHEN 650 MG SUPP RECTAL PRN (13:30)
[2017-07-20] MEDS: LEVOFLOXACIN 750 MG PREMIX INJ 150 ML IV SCH (13:41)
[2017-07-20] MEDS: HYOSCYAMINE SOLN 0.125 MG/ML 15 ML BTL PEG PRN (13:42)
--- NOTE | 2017-07-20 14:30 | RADRPT ---
EXAM DATE/TIME: 07/20/2017 13:49 [facility] COMPARISON: ABDOMEN KUB ONLY, January 19, 2016, 15:54. INDICATIONS : Abdomen pain. MEDICAL HISTORY : Stroke. Hypertension SURGICAL HISTORY : feeding tube ENCOUNTER: Subsequent ACUITY: >1 year PAIN SCORE: Non-responsive. LOCATION: Bilateral abdomen FINDINGS: 2 supine AP views of the abdomen. Gastrostomy tube in place. Scattered gas in mildly distended colon. Scattered loops of mildly distended air-filled small bowel. Moderate-sized osteophytes/heterotopic o ssification at the left hip laterally. No abnormal abdominal calcification. CONCLUSION: Nonspecific bowel gas pattern with mildly distended air-filled loops of small bowel and colon. May re present ileus. Serafin Iglesias MD on July 20, 2017 at 14:27 Board Certified Radiologist. This report was verified electronically.
[2017-07-20 16:00] VITALS: TEMP 98.4
[2017-07-20] MEDS: METHYLNALTREXONE BROMIDE 12 MG/0.6 ML VIAL SQ SCH (16:13)
[2017-07-20] MEDS: METOCLOPRAMIDE HCL 10 MG/2 ML VIAL IV PUSH SCH ×2 (16:14→22:45)
[2017-07-20] MEDS: SODIUM CHLOR 0.9% 1000 ML INJ 1,000 ML IV SCH ×2 (16:15→22:49)
[2017-07-20] MEDS: VANCOMYCIN INJ 1,400 MG in SODIUM CHLORID 0.9% 500 ML INJ 500 ML IV SCH (16:18)
[2017-07-20 20:00] VITALS: BP 113/75; PULSE 81; RESP 20; TEMP 96.5; O2SAT 97
[2017-07-20] MEDS: QUEtiapine FUMARATE 25 MG TAB PO SCH (22:47)
[2017-07-21] MEDS: VANCOMYCIN INJ 1,400 MG in SODIUM CHLORID 0.9% 500 ML INJ 500 ML IV SCH ×2 (03:24→16:17)
[2017-07-21] MEDS: azaTHIOprine 50 MG TAB PEG SCH ×2 (05:31→17:39)
[2017-07-21] MEDS: POLYETHYLENE GLYCOL 17 GM PKG PEG PRN (05:31)
[2017-07-21] MEDS: METOCLOPRAMIDE HCL 10 MG/2 ML VIAL IV PUSH SCH ×3 (05:31→20:16)
[2017-07-21 06:46] LABS: CREATININE 0.65 MG/DL (0.60-1.30)
[2017-07-21 09:44] VITALS: BP 119/80; PULSE 86; RESP 16; TEMP 97.2; O2SAT 92
[2017-07-21] MEDS: LANSOPRAZOLE SOLUTAB 30 MG TAB PEG SCH ×2 (09:51→20:16)
[2017-07-21] MEDS: JUVEN POWDER 1 PACK G-TUBE SCH ×2 (09:51→20:16)
[2017-07-21] MEDS: predniSONE 20 MG TAB PEG SCH (09:51)
[2017-07-21] MEDS: LACTOBACILLUS ACIDOPHILUS TAB PEG SCH ×2 (09:51→20:16)
[2017-07-21] MEDS: SENNOSIDES SYRUP 8.8 MG/5 ML CUP PEG SCH (09:52)
[2017-07-21] MEDS: FLUoxetine HCL LIQUID 20 MG/5 ML CUP PEG SCH (09:52)
[2017-07-21] MEDS: METHYLNALTREXONE BROMIDE 12 MG/0.6 ML VIAL SQ SCH (09:52)
[2017-07-21] MEDS: ENOXAPARIN SODIUM 40 MG/0.4 ML SYRINGE SQ SCH (09:52)
--- NOTE | 2017-07-21 10:10 | HHI.PR ---
Subjective Remarks Follow-up neuro-Behcet's syndrome. Patient seen and examined, lying in bed sleeping. Awakens to voice, denies any further abdominal pain. Denies any complaints. Abdominal bowel sounds active. Positive BM today. We will slowly restart tube feedings and monitor toleration. Objective Vitals Vital Signs Date Time Temp Pulse Resp B/P (MAP) Pulse Ox O2 Delivery O2 Flow Rate FiO2 07/21/17 09:44 97.2 86 16 119/80 (93) 92 07/20/17 20:00 96.5 81 20 113/75 (88) 97 07/20/17 16:00 98.4 07/20/17 12:00 101.1 I/O 07/20/17 07/20/17 07/20/17 07/21/17 07/21/17 07/21/17 07:00 15:00 23:00 07:00 15:00 23:00 Intake Total 960 ml 150 ml 789 ml 0 ml Output Total 375 ml 375 ml 600 ml Balance 585 ml -225 ml 789 ml -600 ml Intake Oral 0 ml IV Total 150 ml 589 ml Tube Feeding 480 ml Tube Irrigant 200 ml Other 480 ml Output Urine Total 375 ml 375 ml 600 ml # Bowel Movements 0 1 1 Result Diagram: 07/19/17 1138 07/21/17 0615 Imaging Last Impressions Abdomen X-Ray 07/20/17 0000 Signed Impressions: Service Date/Time: June 13:49 - CONCLUSION: Nonspecific bowel gas pattern with mildly distended air-filled loops of small bowel and colon. May represent ileus. Serafin Iglesias MD Chest X-Ray 07/19/17 0000 Signed Impressions: Service Date/Time: Wednesday, July 19, 2017 13:15 - CONCLUSION: Compensated cardiomegaly with peribronchial thickening and probable early infiltrate right lower lobe. Conrad Stewart MD FACR Hip Aspiration/Injection 10/08/16 0000 Signed Impressions: Service Date/Time: Tuesday, October 11, 2016 13:41 - CONCLUSION: Uncomplicated aspiration as above. Minimal fluid on the right. No identifiable fluid on the left Clayton Max MD Lower Extremity Ultrasound 10/06/16 0000 Signed Impressions: Service Date/Time: September 17:29 - CONCLUSION: Normal examination. Josafat Meyer MD CT Angiography 10/06/16 Signed Impressions: Service Date/Time: September 20:31 - CONCLUSION: Minimal right upper lobe infiltrate and basilar atelectasis. No evidence of pulmonary embolism.. Josafat Meyer MD Abdomen/Pelvis CT 10/06/16 Signed Impressions: Service Date/Time: September 20:31 - CONCLUSION: No evidence of pelvic abscess. Josafat Meyer MD Upper Extremity Ultrasound 09/28/16 Signed Impressions: Service Date/Time: Wednesday, September 28, 2016 19:15 - CONCLUSION: 1. Occlusive superficial thrombosis in the left cephalic vein near the antecubital fossa. No deep venous thrombosis. Sumit Bourgeois MD Renal Ultrasound 08/28/16 Signed Impressions: Service Date/Time: Sunday, August 28, 2016 20:03 - CONCLUSION: Mild increased echotexture of both kidneys. Baldev Vu MD Lumbar Puncture Fluoroscopy 08/17/16 Signed Impressions: Service Date/Time: Wednesday, August 17, 2016 12:26 - CONCLUSION: Uncomplicated fluoroscopically guided lumbar puncture. Vishal Beckford Jr., MD Brain MRI 08/17/16 Signed Impressions: Service Date/Time: Wednesday, August 17, 2016 13:28 - CONCLUSION: Remote long-standing areas of abnormality in the brainstem and middle cerebellar peduncle consistent with remote infarcts or contusion. No acute intracranial abnormality. Chacho Bright MD Head CT 08/16/16 0000 Signed Impressions: Service Date/Time: Tuesday, August 16, 2016 09:55 - CONCLUSION: Chronic ischemic changes left frontal lobe possibly from evidence of previous ventriculostomy placement, unchanged. No acute intracranial abnormality. Gen Potter MD Modified Barium Swallow 08/15/16 0000 Signed Impressions: Service Date/Time: Monday, August 15, 2016 00:00 - CONCLUSION: See report above and speech pathology report Chacho Bright MD Objective Remarks GENERAL: Well-developed cachectic and contracted male patient in NAD. Awake and alert. Nodding appropriately. SKIN: Warm and dry. No rash. HEENT: Normocephalic. Atraumatic. Pupils equal and round. No scleral icterus. No injection or drainage. No nasal bleeding or discharge. Mucous membranes pink and moist. NECK: Supple. Trachea midline. CARDIOVASCULAR: Regular rate and rhythm. S1, S2 noted. No murmur appreciated. RESPIRATORY: No accessory muscle use. Course and rhonchi throughout lung [place]. Breath sounds equal bilaterally. GASTROINTESTINAL: Abdomen soft, non-tender, nondistended. Normoactive bowel sounds x4. No guarding. PEG tube noted, no erythema or drainage from site, c/d/ i. MUSCULOSKELETAL: No obvious deformities. Extremities without clubbing, cyanosis , or edema. Procedures 07/19/16 EGD with PEG tube placement 09/27/16 colonoscopy Date of Insertion: Jul 01, 2017 A/P Problem List: (1) Neurologic type Behcet's syndrome ICD Code: M35.2 - Behcet's disease Status: Chronic (2) Hospital acquired PNA ICD Code: J18.9 - Pneumonia, unspecified organism Status: Resolved (3) Sepsis ICD Code: A41.9 - Sepsis, unspecified organism Status: Resolved (4) Encephalopathy ICD Code: G93.40 - Encephalopathy, unspecified Status: Resolved (5) GI bleed ICD Code: K92.2 - Gastrointestinal hemorrhage, unspecified Status: Resolved (6) HCAP (healthcare-associated pneumonia) ICD Code: J18.9 - Pneumonia, unspecified organism Status: Resolved (7) UTI (urinary tract infection) ICD Code: N39.0 - Urinary tract infection, site not specified Status: Resolved (8) Leucocytosis ICD Code: D72.829 - Elevated white blood cell count, unspecified Status: Resolved (9) Fever ICD Code: R50.9 - Fever, unspecified Status: Resolved (10) Effusion of hip joint ICD Code: M25.459 - Effusion, unspecified hip Status: Acute (11) 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 Kowalski is changed monthly, however it is been noticed that he develops constitutional signs of infection around 3 weeks after Kowalski changed. Replaced Kowalski and obtained clean urine sample (07/01/17). CBC does not show leukocytosis. CMP unremarkable. Urine culture growing group D enterococcus and Staphylococcus epidermidis on 07/01/17. ID following. DC Vanco. Staph epi likely contaminant, Enterococcus sensitive to pcn. Continue PO Ampicillin. Repeat UA clean. Patient finished amoxicillin today. Urine culture showing the cyst, will give Diflucan. Blood cultures negative to date. Follow. Possible ileus vs early small bowel obstruction Tube feeding off all night. Positive bowel sounds today. Positive BM today. Restart tube feeding slowly, monitor toleration. Pain control, Morphine IV available PRN. Relistor started. Neuro-Behcet, history of frontal lobe CVA, encephalopathy, history of meningitis , Blurred vision/double vision, urinary retention, chronic No new changes on imaging. Patient was followed by neurology. Aphasic at baseline. Continue Imuran, prednisone EEG shows mild to moderate slowing at times of various depending on the epoch , there was no epileptic activity seen Continue PT/OT Palliative care still following the patient. 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 07/01/17 --Decreased oral intake and dysphagia on initial presentation Speech therapy evaluated patient. S/P barium swallow. Patient with severe dysphagia. GI was consulted and PEG tube was placed. Patient was intolerant to bolus feeding Dietary reconsulted and made recommendations Coccyx decubitus. Ankle ulceration Wound care nurse is following the patient for management, last seen 07/05/17 Patient with specialty bed Mood disorder, depression Psychiatry evaluated patient and made recommendations Prozac 40 mg daily Increased Seroquel to 50 mg at bedtime, patient has been tearful and sobbing intermittently every day. Diabetes Glucose continues to be well controlled, DVT Prophylaxis: Lovenox, TEDs/SCD Medical records were reviewed. Awaiting case management for discharge planning No change in current treatment plan. Discharge Planning Case management assisting. Problem Qualifiers (1) GI bleed: (2) UTI (urinary tract infection): (3) Effusion of hip joint: Junior,Dotty [employer] Jul 21, 2017 10:10
--- NOTE | 2017-07-21 10:42 | PD.WCN.NOT ---
Wound Consult Description: Follow up of Right Lateral malleolus Communicated with: Ifeoma PINK 3rd floor [facility] Recommendation: 1) Please cleanse wound with normal saline pat dry.Skin prep periwound 2) Apply Calazime to open area cover with dry boarder dressing 3) Change every 4-7 days or as needed for dislodgement Additional Information: Patient was seen today on 3rd floor [facility] by conventional underwriter for follow up of wound to Right lateral malleolus.Patient alert in bed but non verbal bilateral lower extremities floating on pillows.Dressing removed to Right lateral ankle wound cleansed with normal saline measurement obtained 0.5cm x 0.8cm x 0.1cm .Wound is stable and no odor ,drainage noted.wound base remains pink but is slowly progressing in wound healing.Calazime applied to open area and covered with boarder gauze signed and dated. Edson Harman [facility] Jul 21, 2017 10:42
[2017-07-21] MEDS: LEVOFLOXACIN 750 MG PREMIX INJ 150 ML IV SCH (14:30)
[2017-07-21] MEDS: SODIUM CHLOR 0.9% 1000 ML INJ 1,000 ML IV SCH (16:17)
[2017-07-21 20:00] VITALS: BP 109/71; PULSE 79; RESP 18; TEMP 98.1; O2SAT 90
[2017-07-21] MEDS: QUEtiapine FUMARATE 25 MG TAB PO SCH (20:16)
[2017-07-21] MEDS: HYOSCYAMINE SOLN 0.125 MG/ML 15 ML BTL PEG PRN (20:22)
[2017-07-21 20:32] VITALS: O2SAT 95
[2017-07-22] MEDS: SODIUM CHLOR 0.9% 1000 ML INJ 1,000 ML IV SCH ×2 (03:15→16:08)
[2017-07-22] MEDS: VANCOMYCIN INJ 1,400 MG in SODIUM CHLORID 0.9% 500 ML INJ 500 ML IV SCH ×2 (03:44→16:08)
[2017-07-22] MEDS: METOCLOPRAMIDE HCL 10 MG/2 ML VIAL IV PUSH SCH ×3 (05:23→22:06)
[2017-07-22] MEDS: azaTHIOprine 50 MG TAB PEG SCH ×2 (05:23→17:51)
[2017-07-22 08:00] VITALS: BP 133/91; PULSE 105; RESP 20; TEMP 97.4; O2SAT 95
[2017-07-22] MEDS: FLUoxetine HCL LIQUID 20 MG/5 ML CUP PEG SCH (08:59)
[2017-07-22] MEDS: SENNOSIDES SYRUP 8.8 MG/5 ML CUP PEG SCH (08:59)
[2017-07-22] MEDS: ENOXAPARIN SODIUM 40 MG/0.4 ML SYRINGE SQ SCH (09:00)
[2017-07-22] MEDS: METHYLNALTREXONE BROMIDE 12 MG/0.6 ML VIAL SQ SCH (09:00)
[2017-07-22] MEDS: LACTOBACILLUS ACIDOPHILUS TAB PEG SCH ×2 (09:00→22:06)
[2017-07-22] MEDS: LANSOPRAZOLE SOLUTAB 30 MG TAB PEG SCH ×2 (09:00→22:05)
[2017-07-22] MEDS: FLUCONAZOLE 200 MG TAB PEG SCH (09:00)
[2017-07-22] MEDS: JUVEN POWDER 1 PACK G-TUBE SCH ×2 (09:00→21:00)
[2017-07-22] MEDS: predniSONE 20 MG TAB PEG SCH (09:00)
--- NOTE | 2017-07-22 10:58 | HHI.PR ---
Subjective Remarks Follow up Neuro-Becht's syndrome. Patient seen and examined, lying in bed comfortably, awake and alert with no complaints. Abdominal pain has resolved. No change in clinical condition. Objective Vitals Vital Signs Date Time Temp Pulse Resp B/P (MAP) Pulse Ox O2 Delivery O2 Flow Rate FiO2 07/22/17 08:00 97.4 105 20 133/91 (105) 95 07/21/17 20:32 95 21 07/21/17 20:00 98.1 79 18 109/71 (84) 90 I/O 07/21/17 07/21/17 07/21/17 07/22/17 07/22/17 07/22/17 07:00 15:00 23:00 07:00 15:00 23:00 Intake Total 0 ml 2500 ml 1144 ml Output Total 600 ml 1000 ml Balance -600 ml 1500 ml 1144 ml Intake Oral 0 ml IV Total 1420 ml 514 ml Tube Feeding 480 ml 240 ml Tube Irrigant 600 ml 390 ml Output Urine Total 600 ml 1000 ml # Bowel Movements 1 Result Diagram: 07/19/17 1138 07/21/17 0615 Imaging Last Impressions Abdomen X-Ray 07/20/17 0000 Signed Impressions: Service Date/Time: June 13:49 - CONCLUSION: Nonspecific bowel gas pattern with mildly distended air-filled loops of small bowel and colon. May represent ileus. Serafin Iglesias MD Chest X-Ray 07/19/17 0000 Signed Impressions: Service Date/Time: Wednesday, July 19, 2017 13:15 - CONCLUSION: Compensated cardiomegaly with peribronchial thickening and probable early infiltrate right lower lobe. Conrad Stewart MD FACR Hip Aspiration/Injection 10/08/16 0000 Signed Impressions: Service Date/Time: Tuesday, October 11, 2016 13:41 - CONCLUSION: Uncomplicated aspiration as above. Minimal fluid on the right. No identifiable fluid on the left Clayton Max MD Lower Extremity Ultrasound 10/06/16 0000 Signed Impressions: Service Date/Time: September 17:29 - CONCLUSION: Normal examination. Josafat Meyer MD CT Angiography 10/06/16 0000 Signed Impressions: Service Date/Time: September 20:31 - CONCLUSION: Minimal right upper lobe infiltrate and basilar atelectasis. No evidence of pulmonary embolism.. Josafat Meyer MD Abdomen/Pelvis CT 10/06/16 Signed Impressions: Service Date/Time: September 20:31 - CONCLUSION: No evidence of pelvic abscess. Josafat Meyer MD Upper Extremity Ultrasound 09/28/16 Signed Impressions: Service Date/Time: Wednesday, September 28, 2016 19:15 - CONCLUSION: 1. Occlusive superficial thrombosis in the left cephalic vein near the antecubital fossa. No deep venous thrombosis. Sumit Bourgeois MD Renal Ultrasound 08/28/16 Signed Impressions: Service Date/Time: Sunday, August 28, 2016 20:03 - CONCLUSION: Mild increased echotexture of both kidneys. Baldev Vu MD Lumbar Puncture Fluoroscopy 08/17/16 0000 Signed Impressions: Service Date/Time: Wednesday, August 17, 2016 12:26 - CONCLUSION: Uncomplicated fluoroscopically guided lumbar puncture. Vishal Beckford Jr., MD Brain MRI 08/17/16 Signed Impressions: Service Date/Time: Wednesday, August 17, 2016 13:28 - CONCLUSION: Remote long-standing areas of abnormality in the brainstem and middle cerebellar peduncle consistent with remote infarcts or contusion. No acute intracranial abnormality. Chacho Bright MD Head CT 08/16/16 0000 Signed Impressions: Service Date/Time: Tuesday, August 16, 2016 09:55 - CONCLUSION: Chronic ischemic changes left frontal lobe possibly from evidence of previous ventriculostomy placement, unchanged. No acute intracranial abnormality. Gen Potter MD Modified Barium Swallow 08/15/16 0000 Signed Impressions: Service Date/Time: Monday, August 15, 2016 00:00 - CONCLUSION: See report above and speech pathology report Chacho Bright MD Objective Remarks GENERAL: Well-developed cachectic and contracted male patient in NAD. Awake and alert. Nodding appropriately. SKIN: Warm and dry. No rash. HEENT: Normocephalic. Atraumatic. Pupils equal and round. No scleral icterus. No injection or drainage. No nasal bleeding or discharge. Mucous membranes pink and moist. NECK: Supple. Trachea midline. CARDIOVASCULAR: Regular rate and rhythm. S1, S2 noted. No murmur appreciated. RESPIRATORY: No accessory muscle use. Course and rhonchi throughout lung lawson. Breath sounds equal bilaterally. GASTROINTESTINAL: Abdomen soft, non-tender, nondistended. Normoactive bowel sounds x4. No guarding. PEG tube noted, no erythema or drainage from site, c/d/ i. MUSCULOSKELETAL: No obvious deformities. Extremities without clubbing, cyanosis , or edema. 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: Chronic (2) Hospital acquired PNA ICD Code: J18.9 - Pneumonia, unspecified organism Status: Resolved (3) Sepsis ICD Code: A41.9 - Sepsis, unspecified organism Status: Resolved (4) Encephalopathy ICD Code: G93.40 - Encephalopathy, unspecified Status: Resolved (5) GI bleed ICD Code: K92.2 - Gastrointestinal hemorrhage, unspecified Status: Resolved (6) HCAP (healthcare-associated pneumonia) ICD Code: J18.9 - Pneumonia, unspecified organism Status: Resolved (7) UTI (urinary tract infection) ICD Code: N39.0 - Urinary tract infection, site not specified Status: Resolved (8) Leucocytosis ICD Code: D72.829 - Elevated white blood cell count, unspecified Status: Resolved (9) Fever ICD Code: R50.9 - Fever, unspecified Status: Resolved (10) Effusion of hip joint ICD Code: M25.459 - Effusion, unspecified hip Status: Acute (11) 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 Kowalski is changed monthly, however it is been noticed that he develops constitutional signs of infection around 3 weeks after Kowalski changed. Replaced Kowalski and obtained clean urine sample (07/01/17). CBC does not show leukocytosis. CMP unremarkable. Urine culture growing group D enterococcus and Staphylococcus epidermidis on 07/01/17. ID following. DC Vanco. Staph epi likely contaminant, Enterococcus sensitive to pcn. Continue PO Ampicillin. Repeat UA clean. Patient finished amoxicillin today. Urine culture showing the yeast, will give Diflucan. Blood cultures negative to date. Follow. Possible ileus vs early small bowel obstruction Tube feeding off all night. Positive bowel sounds today. Positive BM today. Restart tube feeding slowly, monitor toleration. Pain control, Morphine IV available PRN. Relistor started. Neuro-Behcet, history of frontal lobe CVA, encephalopathy, history of meningitis , Blurred vision/double vision, urinary retention, chronic No new changes on imaging. Patient was followed by neurology. Aphasic at baseline. Continue Imuran, prednisone EEG shows mild to moderate slowing at times of various depending on the epoch , there was no epileptic activity seen Continue PT/OT Palliative care still following the patient. 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 07/01/17 --Decreased oral intake and dysphagia on initial presentation Speech therapy evaluated patient. S/P barium swallow. Patient with severe dysphagia. GI was consulted and PEG tube was placed. Patient was intolerant to bolus feeding Dietary reconsulted and made recommendations Coccyx decubitus. Ankle ulceration Wound care nurse is following the patient for management, last seen 07/05/17 Patient with specialty bed Mood disorder, depression Psychiatry evaluated patient and made recommendations Prozac 40 mg daily Increased Seroquel to 50 mg at bedtime, patient has been tearful and sobbing intermittently every day. Diabetes Glucose continues to be well controlled, DVT Prophylaxis: Lovenox, TEDs/SCD Medical records were reviewed. Awaiting case management for discharge planning No change in current treatment plan. Discharge Planning Case management assisting. Problem Qualifiers (1) GI bleed: (2) UTI (urinary tract infection): (3) Effusion of hip joint: Dotty Pacheco Jul 22, 2017 10:58
[2017-07-22] MEDS: LEVOFLOXACIN 750 MG PREMIX INJ 150 ML IV SCH (14:20)
[2017-07-22 20:00] VITALS: BP 117/76; PULSE 98; RESP 18; TEMP 98.7; O2SAT 94
[2017-07-22 21:11] VITALS: O2SAT 96
[2017-07-22] MEDS: QUEtiapine FUMARATE 25 MG TAB PO SCH (22:05)
[2017-07-23] MEDS: SODIUM CHLOR 0.9% 1000 ML INJ 1,000 ML IV SCH ×2 (03:05→08:40)
[2017-07-23] MEDS: VANCOMYCIN INJ 1,400 MG in SODIUM CHLORID 0.9% 500 ML INJ 500 ML IV SCH ×2 (04:17→17:29)
[2017-07-23] MEDS: METOCLOPRAMIDE HCL 10 MG/2 ML VIAL IV PUSH SCH ×3 (04:53→22:32)
[2017-07-23] MEDS: azaTHIOprine 50 MG TAB PEG SCH ×2 (04:53→17:27)
[2017-07-23 08:00] VITALS: BP 144/89; PULSE 88; RESP 20; TEMP 97.2; O2SAT 95
[2017-07-23] MEDS: FLUCONAZOLE 200 MG TAB PEG SCH (08:41)
[2017-07-23] MEDS: LANSOPRAZOLE SOLUTAB 30 MG TAB PEG SCH ×2 (08:41→22:31)
[2017-07-23] MEDS: SENNOSIDES SYRUP 8.8 MG/5 ML CUP PEG SCH (08:41)
[2017-07-23] MEDS: ENOXAPARIN SODIUM 40 MG/0.4 ML SYRINGE SQ SCH (08:41)
[2017-07-23] MEDS: FLUoxetine HCL LIQUID 20 MG/5 ML CUP PEG SCH (08:41)
[2017-07-23] MEDS: METHYLNALTREXONE BROMIDE 12 MG/0.6 ML VIAL SQ SCH (08:41)
[2017-07-23] MEDS: LACTOBACILLUS ACIDOPHILUS TAB PEG SCH ×2 (08:41→22:30)
[2017-07-23] MEDS: predniSONE 20 MG TAB PEG SCH (08:41)
[2017-07-23] MEDS: JUVEN POWDER 1 PACK G-TUBE SCH ×2 (08:42→21:00)
[2017-07-23 09:45] VITALS: BP 189/100; PULSE 120; RESP 20; TEMP 98.3; O2SAT 97
[2017-07-23 09:59] LABS: CREATININE 0.7 MG/DL (0.60-1.30)
[2017-07-23 11:00] VITALS: BP 127/91; PULSE 106; RESP 20; TEMP 98.6; O2SAT 95
--- NOTE | 2017-07-23 12:40 | HHI.PR ---
Subjective Remarks Follow-up Neuro-Behcet's syndrome. Patient seen and examined, lying in bed sleeping, awakens to voice. Denies any pain or discomfort. No change in clinical condition. No reports of any acute events overnight. Awaiting sputum growth. Objective Vitals Vital Signs Date Time Temp Pulse Resp B/P (MAP) Pulse Ox O2 Delivery O2 Flow Rate FiO2 07/23/17 11:00 98.6 106 20 127/91 (103) 95 07/23/17 09:45 98.3 120 20 189/100 (129) 97 07/23/17 08:00 97.2 88 20 144/89 (107) 95 07/22/17 21:11 96 21 07/22/17 20:00 98.7 98 18 117/76 (90) 94 I/O 07/22/17 07/22/17 07/22/17 07/23/17 07/23/17 07/23/17 07:00 15:00 23:00 07:00 15:00 23:00 Intake Total 1144 ml 0 ml 3009 ml 2195 ml 193 ml Output Total 900 ml 2000 ml Balance 1144 ml -900 ml 3009 ml 195 ml 193 ml Intake Oral 0 ml 0 ml IV Total 514 ml 1409 ml 1315 ml 193 ml Tube Feeding 240 ml 720 ml 240 ml Tube Irrigant 390 ml 880 ml 120 ml Other 520 ml Output Urine Total 900 ml 2000 ml Gastric Drainage Total 0 ml # Bowel Movements 1 1 Result Diagram: 07/19/17 1138 07/23/17 0905 Imaging Last Impressions Abdomen X-Ray 07/20/17 0000 Signed Impressions: Service Date/Time: June 13:49 - CONCLUSION: Nonspecific bowel gas pattern with mildly distended air-filled loops of small bowel and colon. May represent ileus. Serafin Iglesias MD Chest X-Ray 07/19/17 0000 Signed Impressions: Service Date/Time: Wednesday, July 19, 2017 13:15 - CONCLUSION: Compensated cardiomegaly with peribronchial thickening and probable early infiltrate right lower lobe. Conrad Stewart MD FACR Hip Aspiration/Injection 10/08/16 0000 Signed Impressions: Service Date/Time: Tuesday, October 11, 2016 13:41 - CONCLUSION: Uncomplicated aspiration as above. Minimal fluid on the right. No identifiable fluid on the left Clayton Max MD Lower Extremity Ultrasound 10/06/16 Signed Impressions: Service Date/Time: September 17:29 - CONCLUSION: Normal examination. Josafat Meyer MD CT Angiography 10/06/16 Signed Impressions: Service Date/Time: September 20:31 - CONCLUSION: Minimal right upper lobe infiltrate and basilar atelectasis. No evidence of pulmonary embolism.. Josafat Meyer MD Abdomen/Pelvis CT 10/06/16 Signed Impressions: Service Date/Time: September 20:31 - CONCLUSION: No evidence of pelvic abscess. Josafat Meyer MD Upper Extremity Ultrasound 09/28/16 Signed Impressions: Service Date/Time: Wednesday, September 28, 2016 19:15 - CONCLUSION: 1. Occlusive superficial thrombosis in the left cephalic vein near the antecubital fossa. No deep venous thrombosis. Sumit Bourgeois MD Renal Ultrasound 08/28/16 Signed Impressions: Service Date/Time: Sunday, August 28, 2016 20:03 - CONCLUSION: Mild increased echotexture of both kidneys. Baldev Vu MD Lumbar Puncture Fluoroscopy 08/17/16 Signed Impressions: Service Date/Time: Wednesday, August 17, 2016 12:26 - CONCLUSION: Uncomplicated fluoroscopically guided lumbar puncture. Vishal Beckford Jr., MD Brain MRI 08/17/16 Signed Impressions: Service Date/Time: Wednesday, August 17, 2016 13:28 - CONCLUSION: Remote long-standing areas of abnormality in the brainstem and middle cerebellar peduncle consistent with remote infarcts or contusion. No acute intracranial abnormality. Chacho Bright MD Head CT 08/16/16 Signed Impressions: Service Date/Time: Tuesday, August 16, 2016 09:55 - CONCLUSION: Chronic ischemic changes left frontal lobe possibly from evidence of previous ventriculostomy placement, unchanged. No acute intracranial abnormality. Gen Potter MD Modified Barium Swallow 08/15/16 Signed Impressions: Service Date/Time: Monday, August 15, 2016 00:00 - CONCLUSION: See report above and speech pathology report Chacho Bright MD Objective Remarks GENERAL: Well-developed cachectic and contracted male patient in NAD. Awake and alert. Nodding appropriately. SKIN: Warm and dry. No rash. HEENT: Normocephalic. Atraumatic. Pupils equal and round. No scleral icterus. No injection or drainage. No nasal bleeding or discharge. Mucous membranes pink and moist. NECK: Supple. Trachea midline. CARDIOVASCULAR: Regular rate and rhythm. S1, S2 noted. No murmur appreciated. RESPIRATORY: No accessory muscle use. Course and rhonchi throughout lung lawson. Breath sounds equal bilaterally. GASTROINTESTINAL: Abdomen soft, non-tender, nondistended. Normoactive bowel sounds x4. No guarding. PEG tube noted, no erythema or drainage from site, c/d/ i. MUSCULOSKELETAL: No obvious deformities. Extremities without clubbing, cyanosis , or edema. 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: Chronic (2) Hospital acquired PNA ICD Code: J18.9 - Pneumonia, unspecified organism Status: Resolved (3) Sepsis ICD Code: A41.9 - Sepsis, unspecified organism Status: Resolved (4) Encephalopathy ICD Code: G93.40 - Encephalopathy, unspecified Status: Resolved (5) GI bleed ICD Code: K92.2 - Gastrointestinal hemorrhage, unspecified Status: Resolved (6) HCAP (healthcare-associated pneumonia) ICD Code: J18.9 - Pneumonia, unspecified organism Status: Resolved (7) UTI (urinary tract infection) ICD Code: N39.0 - Urinary tract infection, site not specified Status: Resolved (8) Leucocytosis ICD Code: D72.829 - Elevated white blood cell count, unspecified Status: Resolved (9) Fever ICD Code: R50.9 - Fever, unspecified Status: Resolved (10) Effusion of hip joint ICD Code: M25.459 - Effusion, unspecified hip Status: Acute (11) 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 Placed on Vancomycin and Levaquin. Continue IVF. Kowalski is changed monthly, however it is been noticed that he develops constitutional signs of infection around 3 weeks after Kowalski changed. (07/01/17 ). CBC does not show leukocytosis. CMP unremarkable. Urine culture showing the yeast, will give Diflucan. Blood cultures negative to date. Follow. Possible ileus vs early small bowel obstruction Restart tube feeding slowly, monitor toleration. Tolerating well. Pain control, Morphine IV available PRN. Relistor started. Neuro-Behcet, history of frontal lobe CVA, encephalopathy, history of meningitis , Blurred vision/double vision, urinary retention, chronic No new changes on imaging. Patient was followed by neurology. Aphasic at baseline. Continue Imuran, prednisone EEG shows mild to moderate slowing at times of various depending on the epoch , there was no epileptic activity seen Continue PT/OT Palliative care still following the patient. 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 07/01/17 --Decreased oral intake and dysphagia on initial presentation Speech therapy evaluated patient. S/P barium swallow. Patient with severe dysphagia. GI was consulted and PEG tube was placed. Patient was intolerant to bolus feeding Dietary reconsulted and made recommendations Coccyx decubitus. Ankle ulceration Wound care nurse is following the patient for management, last seen 07/05/17 Patient with specialty bed Mood disorder, depression Psychiatry evaluated patient and made recommendations Prozac 40 mg daily Increased Seroquel to 50 mg at bedtime, patient has been tearful and sobbing intermittently every day. Diabetes Glucose continues to be well controlled, DVT Prophylaxis: Lovenox, TEDs/SCD Medical records were reviewed. Awaiting case management for discharge planning No change in current treatment plan. Discharge Planning Case management assisting. Problem Qualifiers (1) GI bleed: (2) UTI (urinary tract infection): (3) Effusion of hip joint: Dotty Pacheco Jul 23, 2017 12:40
[2017-07-23] MEDS: LEVOFLOXACIN 750 MG PREMIX INJ 150 ML IV SCH (13:15)
[2017-07-23 20:00] VITALS: BP 145/82; PULSE 87; RESP 25; TEMP 96.4; O2SAT 97
[2017-07-23] MEDS: QUEtiapine FUMARATE 25 MG TAB PO SCH (22:30)
[2017-07-24] MEDS: SODIUM CHLOR 0.9% 1000 ML INJ 1,000 ML IV SCH (03:05)
[2017-07-24] MEDS: VANCOMYCIN INJ 1,400 MG in SODIUM CHLORID 0.9% 500 ML INJ 500 ML IV SCH ×2 (04:00→17:11)
[2017-07-24] MEDS: azaTHIOprine 50 MG TAB PEG SCH ×2 (05:35→17:11)
[2017-07-24] MEDS: METOCLOPRAMIDE HCL 10 MG/2 ML VIAL IV PUSH SCH ×3 (05:35→22:09)
[2017-07-24 08:00] VITALS: BP 114/78; PULSE 102; RESP 22; TEMP 98.8; O2SAT 93
[2017-07-24] MEDS: SENNOSIDES SYRUP 8.8 MG/5 ML CUP PEG SCH (09:00)
[2017-07-24] MEDS: METHYLNALTREXONE BROMIDE 12 MG/0.6 ML VIAL SQ SCH (09:00)
[2017-07-24] MEDS: JUVEN POWDER 1 PACK G-TUBE SCH ×2 (09:00→22:08)
[2017-07-24] MEDS: LANSOPRAZOLE SOLUTAB 30 MG TAB PEG SCH ×2 (09:10→22:08)
[2017-07-24] MEDS: LACTOBACILLUS ACIDOPHILUS TAB PEG SCH ×2 (09:10→22:08)
[2017-07-24] MEDS: ENOXAPARIN SODIUM 40 MG/0.4 ML SYRINGE SQ SCH (09:10)
[2017-07-24] MEDS: predniSONE 20 MG TAB PEG SCH (09:10)
[2017-07-24] MEDS: FLUoxetine HCL LIQUID 20 MG/5 ML CUP PEG SCH (09:10)
[2017-07-24 10:16] LABS: CHLORIDE 107 MEQ/L (98-107); SODIUM (NA) 140 MEQ/L (136-145)
[2017-07-24 10:19] LABS: CALCIUM 8.3 MG/DL (8.5-10.1)
[2017-07-24 10:20] LABS: ALBUMIN 2.6 GM/DL (3.4-5.0); BICARBONATE 26.5 MEQ/L (21.0-32.0); BLOOD UREA NITROGEN 11 MG/DL (7-18); GLUCOSE,RANDOM 96 MG/DL (74-106)
[2017-07-24 10:23] LABS: ALT (GPT) 25 U/L (12-78); AST (GOT) 15 U/L (15-37); CREATININE 0.75 MG/DL (0.60-1.30); GLOMERULAR FILTRATION RATE 136 ML/MIN (>89); PHOSPHORUS 2.5 MG/DL (2.5-4.9)
[2017-07-24 10:24] LABS: TOTAL BILIRUBIN ADULT 0.2 MG/DL (0.2-1.0); TOTAL PROTEIN 6.2 GM/DL (6.4-8.2)
[2017-07-24 10:26] LABS: ALKALINE PHOSPHATASE 58 U/L (45-117)
--- NOTE | 2017-07-24 11:14 | HHI.PR ---
Subjective Remarks Follow-up neuro-Bechet's syndrome. Patient seen and examined, found to be diaphoretic and tachypneic. Afebrile at the time. Vitals are actually stable. and family at bedside updated about patient condition. Labs unremarkable today. Lactic acid within normal limits. Objective Vitals Vital Signs Date Time Temp Pulse Resp B/P (MAP) Pulse Ox O2 Delivery O2 Flow Rate FiO2 07/24/17 08:00 98.8 102 22 114/78 (90) 93 07/23/17 20:00 96.4 87 25 145/82 (103) 97 I/O 07/23/17 07/23/17 07/23/17 07/24/17 07/24/17 07/24/17 07:00 15:00 23:00 07:00 15:00 23:00 Intake Total 2195 ml 343 ml 2188 ml 2496 ml Output Total 2000 ml 1290 ml 2000 ml Balance 195 ml -947 ml 2188 ml 496 ml Intake Oral 0 ml 0 ml 0 ml IV Total 1315 ml 343 ml 588 ml 1316 ml Tube Feeding 240 ml 720 ml 480 ml Tube Irrigant 120 ml 880 ml 700 ml Other 520 ml Output Urine Total 2000 ml 1290 ml 2000 ml Gastric Drainage Total 0 ml # Bowel Movements 1 2 Result Diagram: 07/24/17 1000 Imaging Last Impressions Abdomen X-Ray 07/20/17 0000 Signed Impressions: Service Date/Time: June 13:49 - CONCLUSION: Nonspecific bowel gas pattern with mildly distended air-filled loops of small bowel and colon. May represent ileus. Serafin Iglesias MD Chest X-Ray 07/19/17 0000 Signed Impressions: Service Date/Time: Wednesday, July 19, 2017 13:15 - CONCLUSION: Compensated cardiomegaly with peribronchial thickening and probable early infiltrate right lower lobe. Conrad Stewart MD FACR Hip Aspiration/Injection 10/08/16 0000 Signed Impressions: Service Date/Time: Tuesday, October 11, 2016 13:41 - CONCLUSION: Uncomplicated aspiration as above. Minimal fluid on the right. No identifiable fluid on the left Clayton Max MD Lower Extremity Ultrasound 10/06/16 0000 Signed Impressions: Service Date/Time: September 17:29 - CONCLUSION: Normal examination. Josafat Meyer MD CT Angiography 10/06/16 Signed Impressions: Service Date/Time: September 20:31 - CONCLUSION: Minimal right upper lobe infiltrate and basilar atelectasis. No evidence of pulmonary embolism.. Josafat Meyer MD Abdomen/Pelvis CT 10/06/16 Signed Impressions: Service Date/Time: September 20:31 - CONCLUSION: No evidence of pelvic abscess. Josafat Meyer MD Upper Extremity Ultrasound 09/28/16 Signed Impressions: Service Date/Time: Wednesday, September 28, 2016 19:15 - CONCLUSION: 1. Occlusive superficial thrombosis in the left cephalic vein near the antecubital fossa. No deep venous thrombosis. Sumit Bourgeois MD Renal Ultrasound 08/28/16 Signed Impressions: Service Date/Time: Sunday, August 28, 2016 20:03 - CONCLUSION: Mild increased echotexture of both kidneys. Baldev Vu MD Lumbar Puncture Fluoroscopy 08/17/16 Signed Impressions: Service Date/Time: Wednesday, August 17, 2016 12:26 - CONCLUSION: Uncomplicated fluoroscopically guided lumbar puncture. Vishal Beckford Jr., MD Brain MRI 08/17/16 Signed Impressions: Service Date/Time: Wednesday, August 17, 2016 13:28 - CONCLUSION: Remote long-standing areas of abnormality in the brainstem and middle cerebellar peduncle consistent with remote infarcts or contusion. No acute intracranial abnormality. Chacho Bright MD Head CT 08/16/16 Signed Impressions: Service Date/Time: Tuesday, August 16, 2016 09:55 - CONCLUSION: Chronic ischemic changes left frontal lobe possibly from evidence of previous ventriculostomy placement, unchanged. No acute intracranial abnormality. Gen Potter MD Modified Barium Swallow 08/15/16 Signed Impressions: Service Date/Time: Monday, August 15, 2016 00:00 - CONCLUSION: See report above and speech pathology report Chacho Bright MD Objective Remarks GENERAL: Well-developed cachectic and contracted male patient in NAD. Awake and alert. Nodding appropriately. SKIN: Warm and dry. No rash. HEENT: Normocephalic. Atraumatic. Pupils equal and round. No scleral icterus. No injection or drainage. No nasal bleeding or discharge. Mucous membranes pink and moist. NECK: Supple. Trachea midline. CARDIOVASCULAR: Regular rate and rhythm. S1, S2 noted. No murmur appreciated. RESPIRATORY: No accessory muscle use. Course and rhonchi throughout lung lawson. Breath sounds equal bilaterally. GASTROINTESTINAL: Abdomen soft, non-tender, nondistended. Normoactive bowel sounds x4. No guarding. PEG tube noted, no erythema or drainage from site, c/d/ i. MUSCULOSKELETAL: No obvious deformities. Extremities without clubbing, cyanosis , or edema. 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: Chronic (2) Hospital acquired PNA ICD Code: J18.9 - Pneumonia, unspecified organism Status: Resolved (3) Sepsis ICD Code: A41.9 - Sepsis, unspecified organism Status: Resolved (4) Encephalopathy ICD Code: G93.40 - Encephalopathy, unspecified Status: Resolved (5) GI bleed ICD Code: K92.2 - Gastrointestinal hemorrhage, unspecified Status: Resolved (6) HCAP (healthcare-associated pneumonia) ICD Code: J18.9 - Pneumonia, unspecified organism Status: Resolved (7) UTI (urinary tract infection) ICD Code: N39.0 - Urinary tract infection, site not specified Status: Resolved (8) Leucocytosis ICD Code: D72.829 - Elevated white blood cell count, unspecified Status: Resolved (9) Fever ICD Code: R50.9 - Fever, unspecified Status: Resolved (10) Effusion of hip joint ICD Code: M25.459 - Effusion, unspecified hip Status: Acute (11) 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 Sputum culture growing Klebsiella pneumonia ESBL positive. Will consult ID for further recommendations. Chest x-ray reviewed showing probable early infiltrate right lower lobe. Kowalski is changed monthly, however it is been noticed that he develops constitutional signs of infection around 3 weeks after Kowalski changed. (07/01/17 ). Urine culture showing hans parapsilosis, s/p Diflucan. CBC does not show leukocytosis. CMP unremarkable. Blood cultures negative to date. Follow. Possible ileus vs early small bowel obstruction Restarted tube feeding, tolerating well. Pain control, Morphine IV available PRN. Continue Reglan. Neuro-Behcet, history of frontal lobe CVA, encephalopathy, history of meningitis , Blurred vision/double vision, urinary retention, chronic No new changes on imaging. Patient was followed by neurology. Aphasic at baseline. Continue Imuran, prednisone EEG shows mild to moderate slowing at times of various depending on the epoch , there was no epileptic activity seen Continue PT/OT Palliative care still following the patient. 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 07/01/17 --Decreased oral intake and dysphagia on initial presentation Speech therapy evaluated patient. S/P barium swallow. Patient with severe dysphagia. GI was consulted and PEG tube was placed. Patient was intolerant to bolus feeding Dietary reconsulted and made recommendations Coccyx decubitus. Ankle ulceration Wound care nurse is following the patient for management, last seen 07/05/17 Patient with specialty bed Mood disorder, depression Psychiatry evaluated patient and made recommendations Prozac 40 mg daily Seroquel to 50 mg at bedtime. Diabetes Glucose continues to be well controlled DVT Prophylaxis: Lovenox, TEDs/SCD Medical records were reviewed. Awaiting case management for discharge planning No change in current treatment plan. Discharge Planning Case management assisting. Problem Qualifiers (1) GI bleed: (2) UTI (urinary tract infection): (3) Effusion of hip joint: Dotty Pacheco Jul 24, 2017 11:14
[2017-07-24 11:19] LABS: AUTOMATED NEUTROPHIL # 4.4 TH/MM3 (1.8-7.7); BASOPHIL % 0.2 % (0.0-2.0); EOSINOPHIL % 0.3 % (0.0-4.0); HEMOGLOBIN 11.6 GM/DL (13.0-17.0); LYMPH % 30.8 % (9.0-44.0); LYMPHOCYTE # 2.2 TH/MM3 (1.0-4.8); MEAN CELL VOLUME 94.3 FL (80.0-100.0); MEAN CORPUSCULAR HEMOGLOBIN 30.4 PG (27.0-34.0); MEAN CORPUSCULAR HGB CONC 32.3 % (32.0-36.0); MEAN PLATELET VOLUME 9.2 FL (7.0-11.0); MONO % 8.2 % (0.0-8.0); MONOCYTE # 0.6 TH/MM3 (0-0.9); NEUT % 60.5 % (16.0-70.0); PLATELET COUNT 254 TH/MM3 (150-450); RED BLOOD COUNT 3.82 MIL/MM3 (4.50-5.90); RED CELL DISTRIBUTION WIDTH 15.7 % (11.6-17.2); WHITE BLOOD COUNT 7.3 TH/MM3 (4.0-11.0)
--- NOTE | 2017-07-24 11:33 | RADRPT ---
EXAM DATE/TIME: 07/24/2017 11:03 [facility] COMPARISON: CHEST SINGLE AP, July 19, 2017, 13:15. INDICATIONS : Congestion. MEDICAL HISTORY : Hypertension. CVA. Migraines SURGICAL HISTORY : feeding tube ENCOUNTER: Subsequent ACUITY: >1 year PAIN SCORE: Non-responsive. LOCATION: Bilateral chest FINDINGS: Linear opacities in the left midlung zone. Mild diffuse interstitial prominence. Cardiac silhouette i s enlarged. Pulmonary vascularity is indistinct. Remainder of the exam is unchanged. CONCLUSION: 1. Cardia mainly with mild positive fluid balance. 2. Linear parenchymal opacity in the left midlung zone, likely atelectasis. Isaías Christianson MD on July 24, 2017 at 11:28 Board Certified Radiologist. This report was verified electronically.
[2017-07-24 12:00] VITALS: TEMP 99.1
[2017-07-24] MEDS: LEVOFLOXACIN 750 MG PREMIX INJ 150 ML IV SCH (12:36)
[2017-07-24] MEDS: ERTAPENEM 1,000 MG/NS 100 ML IV SCH ×2 (14:07)
[2017-07-24 16:00] VITALS: TEMP 98.5
[2017-07-24 20:00] VITALS: BP 120/98; PULSE 84; RESP 16; TEMP 95.8; O2SAT 99
[2017-07-24] MEDS: QUEtiapine FUMARATE 25 MG TAB PO SCH (22:09)
[2017-07-25] VITALS: BP 95/75; PULSE 91; RESP 16; TEMP 96.3; O2SAT 98
[2017-07-25] MEDS: VANCOMYCIN INJ 1,400 MG in SODIUM CHLORID 0.9% 500 ML INJ 500 ML IV SCH (04:00)
[2017-07-25] MEDS: azaTHIOprine 50 MG TAB PEG SCH ×2 (06:09→17:10)
[2017-07-25] MEDS: METOCLOPRAMIDE HCL 10 MG/2 ML VIAL IV PUSH SCH (06:09)
[2017-07-25 08:00] VITALS: BP 122/75; PULSE 98; RESP 22; TEMP 98.1; O2SAT 96
[2017-07-25] MEDS: LACTOBACILLUS ACIDOPHILUS TAB PEG SCH ×2 (08:23→22:24)
[2017-07-25] MEDS: LANSOPRAZOLE SOLUTAB 30 MG TAB PEG SCH ×2 (08:23→22:24)
[2017-07-25] MEDS: predniSONE 20 MG TAB PEG SCH (08:23)
[2017-07-25] MEDS: JUVEN POWDER 1 PACK G-TUBE SCH ×2 (08:23→22:23)
[2017-07-25] MEDS: FLUoxetine HCL LIQUID 20 MG/5 ML CUP PEG SCH (08:25)
[2017-07-25] MEDS: SENNOSIDES SYRUP 8.8 MG/5 ML CUP PEG SCH (08:25)
[2017-07-25] MEDS: ENOXAPARIN SODIUM 40 MG/0.4 ML SYRINGE SQ SCH (08:27)
--- NOTE | 2017-07-25 11:31 | HHI.PR ---
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 Patient denies any new complaints today. Seems to be in good spirits. Vital signs are stable, afebrile Objective Vitals Vital Signs Date Time Temp Pulse Resp B/P (MAP) Pulse Ox O2 Delivery O2 Flow Rate FiO2 07/25/17 08:00 98.1 98 22 122/75 (91) 96 07/25/17 00:00 96.3 91 16 95/75 (82) 98 07/24/17 20:00 95.8 84 16 120/98 (105) 99 07/24/17 16:00 98.5 07/24/17 12:00 99.1 I/O 07/24/17 07/24/17 07/24/17 07/25/17 07/25/17 07/25/17 07:00 15:00 23:00 07:00 15:00 23:00 Intake Total 2496 ml 1000 ml 1644 ml Output Total 2000 ml 1950 ml 800 ml 850 ml Balance 496 ml -950 ml -800 ml 794 ml Intake Oral 0 ml IV Total 1316 ml 1000 ml 514 ml Tube Feeding 480 ml 480 ml Tube Irrigant 700 ml 650 ml Output Urine Total 2000 ml 1950 ml 800 ml 850 ml # Bowel Movements 0 0 2 Result Diagram: 07/24/17 1000 07/24/17 1000 Objective Remarks GENERAL: Well-developed, cachectic and contracted. HEENT: Head is normocephalic without any lesions or masses noted. Facial features are symmetric. Eyes: Extraocular muscles are intact. Conjunctivae were clear. NECK: Trachea midline no deviation. CARDIAC: Regular rhythm, tachycardia noted. S1/S2 are heard. No murmurs gallops or rubs. LUNGS: Clear to auscultation bilaterally. No wheeze, rhonchi or rales. No use of accessory muscles on inspiration or expiration. ABDOMEN: Soft, nontender. Nondistended. Bowel sounds heard in all 4 quadrants. No organomegaly or masses. Negative rebound, negative guarding. PEG tube noted without any excoriation. EXTREMITIES: No edema, pulses are equal bilaterally. No cyanosis or clubbing. Procedures 07/19/16 EGD with PEG tube placement 09/27/16 colonoscopy Urinary Catheter: Yes Assessment to: Continue Kowalski insert reason: Obstruction/Retention Date of Insertion: Jul 26, 2017 Vascular Central Line Catheter: No A/P Assessment and Plan Low-grade fever , recurrent Chest x-ray indicating right lower lobe pneumonia sputum culture indicating Klebsiella pneumonia ESBL positive Patient started on ertapenem, Levaquin, vancomycin Will discontinue Levaquin and vancomycin Infectious disease consulted, awaiting recommendation Urinalysis taken from chronic indwelling Kowalski without changing, did indicate Daphney parapsilosis, patient did give fluconazole 200 mg by mouth 2 Repeat urinalysis Possible ileus vs early small bowel obstruction Follow-up abdominal x-ray Restarted tube feeding, tolerating well. Changing to by mouth Reglan. Neuro-Behcet, history of frontal lobe CVA, encephalopathy, history of meningitis , Blurred vision/double vision, urinary retention, chronic No new changes on imaging. Patient was followed by neurology. Aphasic at baseline. Continue Imuran, prednisone EEG shows mild to moderate slowing at times of various depending on the epoch , there was no epileptic activity seen Continue PT/OT Palliative care still following the patient. 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 07/25/17, next time would be 08/15/17 --Decreased oral intake and dysphagia on initial presentation Speech therapy evaluated patient. S/P barium swallow. Patient with severe dysphagia. GI was consulted and PEG tube was placed. Dietary reconsulted for bolus feeding recommendations Continue bolus feeding per dietary recommendations Coccyx decubitus. Ankle ulceration Wound care nurse is following the patient for management Patient with specialty bed Mood disorder, depression Psychiatry evaluated patient and made recommendations Prozac 40 mg daily Seroquel 25 mg at bedtime Diabetes Glucose continues to be well controlled, DVT Prophylaxis: Lovenox, TEDs/SCD Discharge Planning Case management for discharge planning, Ede Richardson Jul 25, 2017 11:31
[2017-07-25] MEDS: METOCLOPRAMIDE HCL SYRUP 10 MG/10 ML UDC PEG SCH ×3 (12:00→22:24)
[2017-07-25] MEDS: ERTAPENEM 1,000 MG/NS 100 ML IV SCH ×2 (13:51)
[2017-07-25 14:53] LABS: BILIRUBIN, URINE NEG (NEG); BLOOD, URINE SMALL (NEG); GLUCOSE,URINE 1000 OR GREATER mg/dL (NEG); KETONE, URINE NEG (NEG); NITRITE,URINE NEG (NEG); URINE LEUKOCYTE ESTERASE NEG (NEG)
--- NOTE | 2017-07-25 14:53 | RADRPT ---
EXAM DATE/TIME: 07/25/2017 13:11 [facility] COMPARISON: ABDOMEN KUB ONLY, July 20, 2017, 13:49. INDICATIONS : Ileus. MEDICAL HISTORY : Stroke. Hypertension SURGICAL HISTORY : feeding tube ENCOUNTER: Subsequent ACUITY: >1 year PAIN SCORE: Non-responsive. LOCATION: Bilateral abdomen FINDINGS: Supine view of the abdomen was performed. The abdominal bowel gas pattern is normal. Percutaneous ga strostomy tube. No abnormal masses, calcifications, or organomegaly is seen. The osseous structures are unremarkable. Hypertrophic bony changes left hip. CONCLUSION: 1. Normal bowel gas pattern. 2. Percutaneous gastrostomy tube. Gen Potter MD on July 25, 2017 at 14:49 Board Certified Radiologist. This report was verified electronically.
[2017-07-25 15:01] LABS: URINE COLOR YELLOW (YELLW/STRAW)
[2017-07-25 15:02] LABS: SQUAMOUS EPITHELIAL CELL URINE 0-5 /hpf (0-5); WBC, URINE 0-2 /hpf (0-5)
[2017-07-25 20:00] VITALS: BP 128/80; PULSE 82; RESP 20; TEMP 96.4; O2SAT 98
[2017-07-25] MEDS: HYOSCYAMINE SOLN 0.125 MG/ML 15 ML BTL PEG PRN (22:24)
[2017-07-25] MEDS: QUEtiapine FUMARATE 25 MG TAB PO SCH (22:24)
[2017-07-26] MEDS: azaTHIOprine 50 MG TAB PEG SCH ×2 (06:32→17:21)
[2017-07-26] MEDS: METOCLOPRAMIDE HCL SYRUP 10 MG/10 ML UDC PEG SCH ×4 (08:00→22:41)
[2017-07-26] MEDS: JUVEN POWDER 1 PACK G-TUBE SCH ×2 (09:00→22:42)
[2017-07-26] MEDS: FLUoxetine HCL LIQUID 20 MG/5 ML CUP PEG SCH (09:00)
[2017-07-26 09:21] VITALS: BP 127/77; PULSE 97; RESP 16; TEMP 97.3; O2SAT 94
--- NOTE | 2017-07-26 09:37 | HHI.PR ---
Subjective Remarks Patient seen and examined follow-up on neuro-Behcet's syndrome. Patient denies any new complaints today. No change in clinical status. Patient remains afebrile Objective Vitals Vital Signs Date Time Temp Pulse Resp B/P (MAP) Pulse Ox O2 Delivery O2 Flow Rate FiO2 07/26/17 09:21 97.3 97 16 127/77 (94) 94 07/25/17 20:00 96.4 82 20 128/80 (96) 98 I/O 07/25/17 07/25/17 07/25/17 07/26/17 07/26/17 07/26/17 06:59 14:59 22:59 06:59 14:59 22:59 Intake Total 1644 ml 100 ml 540 ml Output Total 850 ml 1000 ml Balance 794 ml -1000 ml 100 ml 540 ml IV Total 514 ml 100 ml Tube Feeding 480 ml 240 ml Tube Irrigant 650 ml 300 ml Output Urine Total 850 ml 1000 ml # Bowel Movements 2 0 Result Diagram: 07/24/17 1000 07/24/17 1000 Objective Remarks GENERAL: Well-developed, cachectic and contracted. HEENT: Head is normocephalic without any lesions or masses noted. Facial features are symmetric. Eyes: Extraocular muscles are intact. Conjunctivae were clear. NECK: Trachea midline no deviation. CARDIAC: Regular rhythm, tachycardia noted. S1/S2 are heard. No murmurs gallops or rubs. LUNGS: Clear to auscultation bilaterally. No wheeze, rhonchi or rales. No use of accessory muscles on inspiration or expiration. ABDOMEN: Soft, nontender. Nondistended. Bowel sounds heard in all 4 quadrants. No organomegaly or masses. Negative rebound, negative guarding. PEG tube noted without any excoriation. EXTREMITIES: No edema, pulses are equal bilaterally. No cyanosis or clubbing. Procedures 07/19/16 EGD with PEG tube placement 09/27/16 colonoscopy Urinary Catheter: Yes Assessment to: Continue Kowalski insert reason: Prolonged Immobilization Date of Insertion: Jul 26, 2017 Vascular Central Line Catheter: No A/P Assessment and Plan Low-grade fever , recurrent, resolved Chest x-ray indicating right lower lobe pneumonia sputum culture indicating Klebsiella pneumonia ESBL positive Patient started on ertapenem, Levaquin, vancomycin Will discontinue Levaquin and vancomycin Infectious disease consulted, awaiting recommendation Urinalysis taken from chronic indwelling Kowalski without changing, did indicate Daphney parapsilosis, patient did give fluconazole 200 mg by mouth 2 Repeat urinalysis unremarkable for any signs of infection, does not require any culture Possible ileus vs early small bowel obstruction, resolved Follow-up abdominal x-ray, shows normal bowel gas pattern Restarted tube feeding, tolerating well. Changing to by mouth Reglan. Neuro-Behcet, history of frontal lobe CVA, encephalopathy, history of meningitis , Blurred vision/double vision, urinary retention, chronic No new changes on imaging. Patient was followed by neurology. Aphasic at baseline. Continue Imuran, prednisone EEG shows mild to moderate slowing at times of various depending on the epoch , there was no epileptic activity seen Continue PT/OT Palliative care still following the patient. 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 07/25/17, next time would be 08/15/17 --Decreased oral intake and dysphagia on initial presentation Speech therapy evaluated patient. S/P barium swallow. Patient with severe dysphagia. GI was consulted and PEG tube was placed. Dietary reconsulted for bolus feeding recommendations Continue bolus feeding per dietary recommendations Coccyx decubitus. Ankle ulceration Wound care nurse is following the patient for management Patient with specialty bed Mood disorder, depression Psychiatry evaluated patient and made recommendations Prozac 40 mg daily Seroquel 25 mg at bedtime Diabetes Glucose continues to be well controlled, DVT Prophylaxis: Lovenox, TEDs/SCD Discharge Planning Case management for discharge planning, Ede Richardson Jul 26, 2017 09:37
[2017-07-26] MEDS: LANSOPRAZOLE SOLUTAB 30 MG TAB PEG SCH ×2 (11:01→22:41)
[2017-07-26] MEDS: predniSONE 20 MG TAB PEG SCH (11:01)
[2017-07-26] MEDS: LACTOBACILLUS ACIDOPHILUS TAB PEG SCH ×2 (11:01→22:41)
[2017-07-26] MEDS: SENNOSIDES SYRUP 8.8 MG/5 ML CUP PEG SCH (11:02)
[2017-07-26] MEDS: ENOXAPARIN SODIUM 40 MG/0.4 ML SYRINGE SQ SCH (11:02)
[2017-07-26] MEDS: ERTAPENEM 1,000 MG/NS 100 ML IV SCH ×2 (13:00)
[2017-07-26 20:00] VITALS: BP 118/72; PULSE 107; RESP 20; TEMP 98.6; O2SAT 93
[2017-07-26] MEDS: QUEtiapine FUMARATE 25 MG TAB PO SCH (22:41)
[2017-07-27] VITALS (7 sets, daily range): BP systolic 106–129; BP diastolic 52–87; PULSE 84–108; RESP 20; TEMP 96.2–99.4; O2SAT 93–98
[2017-07-27] MEDS: azaTHIOprine 50 MG TAB PEG SCH ×2 (05:52→17:41)
[2017-07-27] MEDS: METOCLOPRAMIDE HCL SYRUP 10 MG/10 ML UDC PEG SCH ×4 (05:52→22:30)
[2017-07-27 06:27] LABS: AUTOMATED NEUTROPHIL # 12.6 TH/MM3 (1.8-7.7); BASOPHIL % 0.1 % (0.0-2.0); EOSINOPHIL % 0.3 % (0.0-4.0); HEMATOCRIT 40.4 % (39.0-51.0); HEMOGLOBIN 12.5 GM/DL (13.0-17.0); LYMPH % 11.6 % (9.0-44.0); LYMPHOCYTE # 1.7 TH/MM3 (1.0-4.8); MEAN CELL VOLUME 95.8 FL (80.0-100.0); MEAN CORPUSCULAR HEMOGLOBIN 29.7 PG (27.0-34.0); MEAN PLATELET VOLUME 9.2 FL (7.0-11.0); MONO % 2.8 % (0.0-8.0); MONOCYTE # 0.4 TH/MM3 (0-0.9); NEUT % 85.2 % (16.0-70.0); PLATELET COUNT 333 TH/MM3 (150-450); RED BLOOD COUNT 4.22 MIL/MM3 (4.50-5.90); RED CELL DISTRIBUTION WIDTH 15.7 % (11.6-17.2); WHITE BLOOD COUNT 14.7 TH/MM3 (4.0-11.0)
[2017-07-27 06:44] LABS: CHLORIDE 106 MEQ/L (98-107); SODIUM (NA) 141 MEQ/L (136-145)
[2017-07-27 07:00] LABS: WESTERGREN SEDIMENTATION RATE 23 mm/hr (0-15)
[2017-07-27 07:08] LABS: ALKALINE PHOSPHATASE 62 U/L (45-117); ALT (GPT) 25 U/L (12-78); AST (GOT) 14 U/L (15-37); BICARBONATE 29.1 MEQ/L (21.0-32.0); BLOOD UREA NITROGEN 22 MG/DL (7-18); CALCIUM 9.3 MG/DL (8.5-10.1); CREATININE 0.68 MG/DL (0.60-1.30); GLOMERULAR FILTRATION RATE 153 ML/MIN (>89); GLUCOSE,RANDOM 74 MG/DL (74-106); TOTAL BILIRUBIN ADULT 0.2 MG/DL (0.2-1.0); TOTAL PROTEIN 6.8 GM/DL (6.4-8.2)
[2017-07-27] MEDS: JUVEN POWDER 1 PACK G-TUBE SCH ×2 (09:00→22:30)
--- NOTE | 2017-07-27 09:11 | HHI.PR ---
Subjective Remarks Patient seen and examined today for follow-up on neuro-Behcet's syndrome and pneumonia. Patient resting carefully. Last night nursing staff discuss me about patient having episode of vomiting. Residuals were checked with only 10 mL. Patient was given Zofran with improvement. Blood glucose was 177. Patient doing well today. He indicates that he just felt like his abdomen was full. He did not have any nausea. Vital signs are stable, afebrile Objective Vitals Vital Signs Date Time Temp Pulse Resp B/P (MAP) Pulse Ox O2 Delivery O2 Flow Rate FiO2 07/27/17 08:00 99.4 107 20 129/79 (96) 96 07/27/17 04:00 98.4 108 20 116/69 (85) 95 07/27/17 00:00 97.4 94 20 107/52 (70) 96 07/26/17 20:00 98.6 107 20 118/72 (87) 93 07/26/17 09:21 97.3 97 16 127/77 (94) 94 I/O 07/26/17 07/26/17 07/26/17 07/27/17 07/27/17 07/27/17 07:00 15:00 23:00 07:00 15:00 23:00 Intake Total 960 ml Output Total 1340 ml 500 ml 300 ml Balance -1340 ml -500 ml 660 ml Intake Oral 0 ml Tube Feeding 480 ml Other 480 ml Output Urine Total 1340 ml 500 ml 300 ml # Bowel Movements 1 0 1 Result Diagram: 07/27/17 0450 07/27/17 0450 Objective Remarks GENERAL: Well-developed, cachectic and contracted. HEENT: Head is normocephalic without any lesions or masses noted. Facial features are symmetric. Eyes: Extraocular muscles are intact. Conjunctivae were clear. NECK: Trachea midline no deviation. CARDIAC: Regular rhythm, tachycardia noted. S1/S2 are heard. No murmurs gallops or rubs. LUNGS: Clear to auscultation bilaterally. No wheeze, rhonchi or rales. No use of accessory muscles on inspiration or expiration. ABDOMEN: Soft, nontender. Nondistended. Bowel sounds heard in all 4 quadrants. No organomegaly or masses. Negative rebound, negative guarding. PEG tube noted without any excoriation. EXTREMITIES: No edema, pulses are equal bilaterally. No cyanosis or clubbing. Procedures 07/19/16 EGD with PEG tube placement 09/27/16 colonoscopy Urinary Catheter: Yes Assessment to: Continue Kowalski insert reason: Prolonged Immobilization Date of Insertion: Jul 26, 2017 Vascular Central Line Catheter: No A/P Assessment and Plan Low-grade fever , recurrent, resolved Chest x-ray indicating right lower lobe pneumonia sputum culture indicating Klebsiella pneumonia ESBL positive Patient started on ertapenem, Levaquin, vancomycin Will discontinue Levaquin and vancomycin Infectious disease consulted, awaiting recommendation Urinalysis taken from chronic indwelling Kowalski without changing, did indicate Daphney parapsilosis, patient did give fluconazole 200 mg by mouth 2 Repeat urinalysis unremarkable for any signs of infection, does not require any culture Discussed with infectious disease who indicated discontinuation of ertapenem , sputum likely colonization Possible ileus vs early small bowel obstruction, resolved Follow-up abdominal x-ray, shows normal bowel gas pattern Restarted tube feeding, tolerating well. Changing to by mouth Reglan. Neuro-Behcet, history of frontal lobe CVA, encephalopathy, history of meningitis , Blurred vision/double vision, urinary retention, chronic No new changes on imaging. Patient was followed by neurology. Aphasic at baseline. Continue Imuran, prednisone EEG shows mild to moderate slowing at times of various depending on the epoch , there was no epileptic activity seen Continue PT/OT Palliative care still following the patient. 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 07/25/17, next time would be 08/15/17 --Decreased oral intake and dysphagia on initial presentation Speech therapy evaluated patient. S/P barium swallow. Patient with severe dysphagia. GI was consulted and PEG tube was placed. Dietary reconsulted for bolus feeding recommendations Continue bolus feeding per dietary recommendations Coccyx decubitus. Ankle ulceration Wound care nurse is following the patient for management Patient with specialty bed Mood disorder, depression Psychiatry evaluated patient and made recommendations Prozac 40 mg daily Seroquel 25 mg at bedtime Diabetes Glucose continues to be well controlled, DVT Prophylaxis: Lovenox, TEDs/SCD Medical records reviewed. No change in current treatment plan. Awaiting case management for discharge planning Discharge Planning Case management for discharge planning, Ede Richardson Jul 27, 2017 09:11
[2017-07-27] MEDS: LANSOPRAZOLE SOLUTAB 30 MG TAB PEG SCH ×2 (12:09→22:29)
[2017-07-27] MEDS: LACTOBACILLUS ACIDOPHILUS TAB PEG SCH ×2 (12:09→22:30)
[2017-07-27] MEDS: FLUoxetine HCL LIQUID 20 MG/5 ML CUP PEG SCH (12:09)
[2017-07-27] MEDS: SENNOSIDES SYRUP 8.8 MG/5 ML CUP PEG SCH (12:09)
[2017-07-27] MEDS: predniSONE 20 MG TAB PEG SCH (12:09)
[2017-07-27] MEDS: ENOXAPARIN SODIUM 40 MG/0.4 ML SYRINGE SQ SCH (12:10)
[2017-07-27] MEDS: ERTAPENEM 1,000 MG/NS 100 ML IV SCH ×2 (12:10)
[2017-07-27 17:04] LABS: HEMOGLOBIN A1C 6.7 % (4.3-6.0)
[2017-07-27] MEDS: QUEtiapine FUMARATE 25 MG TAB PO SCH (22:30)
[2017-07-28] VITALS: BP 112/88; PULSE 90; RESP 22; TEMP 97.6; O2SAT 97
[2017-07-28 04:00] VITALS: BP 129/80; PULSE 98; RESP 22; TEMP 97.8; O2SAT 97
[2017-07-28] MEDS: azaTHIOprine 50 MG TAB PEG SCH ×2 (05:51→18:10)
[2017-07-28 08:00] VITALS: BP 95/72; PULSE 93; RESP 15; TEMP 97.9; O2SAT 94
--- NOTE | 2017-07-28 08:25 | HHI.PR ---
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 Patient denies any new complaints. No change in clinical status. Vital signs are stable, afebrile. No clinical signs of infection Objective Vitals Vital Signs Date Time Temp Pulse Resp B/P (MAP) Pulse Ox O2 Delivery O2 Flow Rate FiO2 07/28/17 04:00 97.8 98 22 129/80 (96) 97 07/28/17 00:00 97.6 90 22 112/88 (96) 97 07/27/17 20:00 96.2 84 20 106/87 (93) 95 07/27/17 15:48 97.5 92 20 116/80 (92) 96 07/27/17 12:00 96.6 96 20 122/78 (93) 98 07/27/17 11:45 93 21 I/O 07/27/17 07/27/17 07/27/17 07/28/17 07/28/17 07/28/17 07:00 15:00 23:00 07:00 15:00 23:00 Intake Total 960 ml 480 ml 480 ml Output Total 300 ml 400 ml Balance 660 ml 480 ml -400 ml 480 ml Intake Oral 0 ml Tube Feeding 480 ml 240 ml 240 ml Other 480 ml 240 ml 240 ml Output Urine Total 300 ml 400 ml # Bowel Movements 1 0 Result Diagram: 07/27/17 0450 07/27/17 0450 Objective Remarks GENERAL: Well-developed, cachectic and contracted. HEENT: Head is normocephalic without any lesions or masses noted. Facial features are symmetric. Eyes: Extraocular muscles are intact. Conjunctivae were clear. NECK: Trachea midline no deviation. CARDIAC: Regular rhythm, tachycardia noted. S1/S2 are heard. No murmurs gallops or rubs. LUNGS: Clear to auscultation bilaterally. No wheeze, rhonchi or rales. No use of accessory muscles on inspiration or expiration. ABDOMEN: Soft, nontender. Nondistended. Bowel sounds heard in all 4 quadrants. No organomegaly or masses. Negative rebound, negative guarding. PEG tube noted without any excoriation. EXTREMITIES: No edema, pulses are equal bilaterally. No cyanosis or clubbing. Procedures 07/19/16 EGD with PEG tube placement 09/27/16 colonoscopy Urinary Catheter: Yes Assessment to: Continue Kowalski insert reason: Obstruction/Retention Date of Insertion: Jul 26, 2017 A/P Assessment and Plan Neuro-Behcet, history of frontal lobe CVA, encephalopathy, history of meningitis , Blurred vision/double vision, urinary retention, chronic No new changes on imaging. Patient was followed by neurology. Aphasic at baseline. Continue Imuran, prednisone EEG shows mild to moderate slowing at times of various depending on the epoch , there was no epileptic activity seen Continue PT/OT Palliative care still following the patient. 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 07/25/17, next time would be 08/15/17 --Decreased oral intake and dysphagia on initial presentation Speech therapy evaluated patient. S/P barium swallow. Patient with severe dysphagia. GI was consulted and PEG tube was placed. Dietary reconsulted for bolus feeding recommendations Continue bolus feeding per dietary recommendations Low-grade fever , recurrent, resolved Chest x-ray indicating right lower lobe pneumonia sputum culture indicating Klebsiella pneumonia ESBL positive Discontinued ertapenem, Levaquin and vancomycin Infectious disease consulted, Urinalysis taken from chronic indwelling Kowalski without changing, did indicate Daphney parapsilosis, patient did give fluconazole 200 mg by mouth 2 Repeat urinalysis unremarkable for any signs of infection, does not require any culture Discussed with infectious disease who indicated discontinuation of ertapenem , sputum likely colonization Possible ileus vs early small bowel obstruction, resolved Follow-up abdominal x-ray, shows normal bowel gas pattern Restarted tube feeding, tolerating well. Changing to by mouth Reglan. Coccyx decubitus. Ankle ulceration Wound care nurse is following the patient for management Patient with specialty bed Mood disorder, depression Psychiatry evaluated patient and made recommendations Prozac 40 mg daily Seroquel 25 mg at bedtime Diabetes Glucose continues to be well controlled, DVT Prophylaxis: Lovenox, TEDs/SCD Medical records reviewed. Awaiting case management for discharge planning. No change in current treatment plan. Discharge Planning Case management for discharge planning, Ede Richardson Jul 28, 2017 08:25
[2017-07-28] MEDS: JUVEN POWDER 1 PACK G-TUBE SCH ×2 (09:00→21:32)
[2017-07-28] MEDS: SENNOSIDES SYRUP 8.8 MG/5 ML CUP PEG SCH (09:00)
[2017-07-28] MEDS: LACTOBACILLUS ACIDOPHILUS TAB PEG SCH ×2 (09:33→21:31)
[2017-07-28] MEDS: predniSONE 20 MG TAB PEG SCH (09:33)
[2017-07-28] MEDS: ENOXAPARIN SODIUM 40 MG/0.4 ML SYRINGE SQ SCH (09:34)
[2017-07-28] MEDS: FLUoxetine HCL LIQUID 20 MG/5 ML CUP PEG SCH (09:34)
[2017-07-28] MEDS: METOCLOPRAMIDE HCL SYRUP 10 MG/10 ML UDC PEG SCH ×4 (09:34→22:15)
[2017-07-28] MEDS: LANSOPRAZOLE SOLUTAB 30 MG TAB PEG SCH ×2 (09:34→21:31)
[2017-07-28 20:00] VITALS: BP 152/94; PULSE 83; RESP 16; TEMP 96.1; O2SAT 92
[2017-07-28] MEDS: QUEtiapine FUMARATE 25 MG TAB PO SCH (21:31)
[2017-07-29] MEDS: azaTHIOprine 50 MG TAB PEG SCH ×2 (05:49→17:25)
[2017-07-29 08:00] VITALS: BP_SYST 121; BP_SYST 83; BP_DIAS 67; BP_DIAS 91; PULSE 111; PULSE 88; RESP 18; TEMP 97.2; TEMP 99.2; O2SAT 93; O2SAT 95
[2017-07-29] MEDS: JUVEN POWDER 1 PACK G-TUBE SCH ×2 (09:00→21:00)
[2017-07-29] MEDS: LANSOPRAZOLE SOLUTAB 30 MG TAB PEG SCH (09:26)
[2017-07-29] MEDS: LACTOBACILLUS ACIDOPHILUS TAB PEG SCH (09:26)
[2017-07-29] MEDS: METOCLOPRAMIDE HCL SYRUP 10 MG/10 ML UDC PEG SCH ×3 (09:26→17:25)
[2017-07-29] MEDS: SENNOSIDES SYRUP 8.8 MG/5 ML CUP PEG SCH (09:27)
[2017-07-29] MEDS: FLUoxetine HCL LIQUID 20 MG/5 ML CUP PEG SCH (09:27)
[2017-07-29] MEDS: predniSONE 20 MG TAB PEG SCH (09:27)
[2017-07-29] MEDS: ENOXAPARIN SODIUM 40 MG/0.4 ML SYRINGE SQ SCH (09:28)
--- NOTE | 2017-07-29 11:40 | HHI.PR ---
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 Patient denies any new complaints. No change in clinical status. Afebrile, no signs of infection Objective Vitals Vital Signs Date Time Temp Pulse Resp B/P (MAP) Pulse Ox O2 Delivery O2 Flow Rate FiO2 07/29/17 08:00 97.2 111 18 121/91 (101) 95 07/28/17 20:00 96.1 83 16 152/94 (113) 92 I/O 07/28/17 07/28/17 07/28/17 07/29/17 07/29/17 07/29/17 07:00 15:00 23:00 07:00 15:00 23:00 Intake Total 580 ml 480 ml Output Total 400 ml 50 ml 225 ml 300 ml Balance -400 ml 530 ml -225 ml 180 ml IV Total 100 ml Tube Feeding 240 ml 240 ml Other 240 ml 240 ml Output Urine Total 400 ml 50 ml 225 ml 300 ml # Bowel Movements 0 2 Result Diagram: 07/27/17 0450 07/27/17 0450 Objective Remarks GENERAL: Well-developed, cachectic and contracted. HEENT: Head is normocephalic without any lesions or masses noted. Facial features are symmetric. Eyes: Extraocular muscles are intact. Conjunctivae were clear. NECK: Trachea midline no deviation. CARDIAC: Regular rhythm, tachycardia noted. S1/S2 are heard. No murmurs gallops or rubs. LUNGS: Clear to auscultation bilaterally. No wheeze, rhonchi or rales. No use of accessory muscles on inspiration or expiration. ABDOMEN: Soft, nontender. Nondistended. Bowel sounds heard in all 4 quadrants. No organomegaly or masses. Negative rebound, negative guarding. PEG tube noted without any excoriation. EXTREMITIES: No edema, pulses are equal bilaterally. No cyanosis or clubbing. Procedures 07/19/16 EGD with PEG tube placement 09/27/16 colonoscopy Urinary Catheter: Yes Assessment to: Continue Kowalski insert reason: Obstruction/Retention Date of Insertion: Jul 26, 2017 Vascular Central Line Catheter: No A/P Assessment and Plan Neuro-Behcet, history of frontal lobe CVA, encephalopathy, history of meningitis , Blurred vision/double vision, urinary retention, chronic No new changes on imaging. Patient was followed by neurology. Aphasic at baseline. Continue Imuran, prednisone EEG shows mild to moderate slowing at times of various depending on the epoch , there was no epileptic activity seen Continue PT/OT Palliative care still following the patient. 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 07/25/17, next time would be 08/15/17 --Decreased oral intake and dysphagia on initial presentation Speech therapy evaluated patient. S/P barium swallow. Patient with severe dysphagia. GI was consulted and PEG tube was placed. Dietary reconsulted for bolus feeding recommendations Continue bolus feeding per dietary recommendations Low-grade fever , recurrent, resolved Chest x-ray indicating right lower lobe pneumonia sputum culture indicating Klebsiella pneumonia ESBL positive Discontinued ertapenem, Levaquin and vancomycin Infectious disease consulted, Discussed with infectious disease who indicated discontinuation of ertapenem , sputum likely colonization Urinalysis taken from chronic indwelling Kowalski without changing, did indicate Daphney parapsilosis, patient did give fluconazole 200 mg by mouth 2 Repeat urinalysis unremarkable for any signs of infection, does not require any culture Possible ileus vs early small bowel obstruction, resolved Follow-up abdominal x-ray, shows normal bowel gas pattern Restarted tube feeding, tolerating well. Changing to by mouth Reglan. Coccyx decubitus. Ankle ulceration Wound care nurse is following the patient for management Patient with specialty bed Mood disorder, depression Psychiatry evaluated patient and made recommendations Prozac 40 mg daily Seroquel 25 mg at bedtime Diabetes Glucose continues to be well controlled, DVT Prophylaxis: Lovenox, TEDs/SCD Medical records reviewed. No change in current treatment plan. Awaiting case management for discharge planning. Discharge Planning Case management for discharge planning, Ede Richardson Jul 29, 2017 11:40
--- NOTE | 2017-07-29 16:25 | HHI.IDPN ---
Subjective Subjective Remarks is a 46 AAM with Neuro Behcet's disease, difficult placement and not safe discharge so continues to reside at [facility]. Had a temp on 07/20/17- cultures done on 07/21 and sputum culture grew a ESBL Klebsiella so patient was on IV Invanz from 07/23 to 07/28 Afebrile now Antibiotics None Got IV Ertapenem 07/23-07/28 Lines Line sites with no e.o infection Past Medical History reviewed Allergies: Uncoded Allergies: ADHESIVE TAPE (Allergy, Severe, 09/21/16) BLISTERS Objective . Vital Signs Date Time Temp Pulse Resp B/P (MAP) Pulse Ox O2 Delivery O2 Flow Rate FiO2 07/29/17 08:00 97.2 111 18 121/91 (101) 95 07/28/17 20:00 96.1 83 16 152/94 (113) 92 Imaging Last Impressions Chest X-Ray 10/11/16 0000 Signed Impressions: Service Date/Time: Tuesday, October 11, 2016 21:23 - CONCLUSION: 1. Bilateral hazy airspace disease. Differential diagnosis includes edema and aspiration. Sumit Bourgeois MD Hip Aspiration/Injection 10/08/16 0000 Signed Impressions: Service Date/Time: Tuesday, October 11, 2016 13:41 - CONCLUSION: Uncomplicated aspiration as above. Minimal fluid on the right. No identifiable fluid on the left Clayton Max MD Lower Extremity Ultrasound 10/06/16 0000 Signed Impressions: Service Date/Time: September 17:29 - CONCLUSION: Normal examination. Josafat Meyer MD CT Angiography 10/06/16 0000 Signed Impressions: Service Date/Time: September 20:31 - CONCLUSION: Minimal right upper lobe infiltrate and basilar atelectasis. No evidence of pulmonary embolism.. Josafat Meyer MD Abdomen/Pelvis CT 10/06/16 0000 Signed Impressions: Service Date/Time: September 20:31 - CONCLUSION: No evidence of pelvic abscess. Josafat Meyer MD Upper Extremity Ultrasound 09/28/16 0000 Signed Impressions: Service Date/Time: Wednesday, September 28, 2016 19:15 - CONCLUSION: 1. Occlusive superficial thrombosis in the left cephalic vein near the antecubital fossa. No deep venous thrombosis. Sumit Bourgeois MD Renal Ultrasound 08/28/16 Signed Impressions: Service Date/Time: Sunday, August 28, 2016 20:03 - CONCLUSION: Mild increased echotexture of both kidneys. Baldev Vu MD Lumbar Puncture Fluoroscopy 08/17/16 Signed Impressions: Service Date/Time: Wednesday, August 17, 2016 12:26 - CONCLUSION: Uncomplicated fluoroscopically guided lumbar puncture. Vishal Beckford Jr., MD Brain MRI 08/17/16 Signed Impressions: Service Date/Time: Wednesday, August 17, 2016 13:28 - CONCLUSION: Remote long-standing areas of abnormality in the brainstem and middle cerebellar peduncle consistent with remote infarcts or contusion. No acute intracranial abnormality. Chacho Bright MD Abdomen X-Ray 08/17/16 Signed Impressions: Service Date/Time: Wednesday, August 17, 2016 13:02 - CONCLUSION: No evidence of obstruction. No MRI incompatible foreign body is identified. Chacho Brihgt MD Head CT 08/16/16 Signed Impressions: Service Date/Time: Tuesday, August 16, 2016 09:55 - CONCLUSION: Chronic ischemic changes left frontal lobe possibly from evidence of previous ventriculostomy placement, unchanged. No acute intracranial abnormality. Gen Potter MD Modified Barium Swallow 08/15/16 Signed Impressions: Service Date/Time: Monday, August 15, 2016 00:00 - CONCLUSION: See report above and speech pathology report Chacho Bright MD Physical Exam GENERAL: Awake , chronically ill appearing patient. SKIN: Old scars on arms. EYES: Pupils equal round and reactive. Extraocular motions intact. No scleral icterus. No injection or drainage. ENT: moist mucosae drooling CARDIOVASCULAR: HS audible. No murmur. RESPIRATORY:. Breath sounds equal bilaterally. Coarse rhonchi equal GASTROINTESTINAL: Abdomen soft, non-tender, minimally distended. : maurice in place with clear yellow urine MUSCULOSKELETAL: Extremities without clubbing, cyanosis, or edema. Wasting and contractures. NEUROLOGICAL: awake and able to respond appropriately to some questions. Psych: unable to assess IV line sites with no e.o infection. Assessment & Plan Diagnosis: (1) Neurologic type Behcet's syndrome ICD Codes: M35.2 - Behcet's disease Status: Chronic (2) Fever ICD Codes: R50.9 - Fever, unspecified Status: Resolved Plan: Sputum culture from 07/21 did grow ESBL Klebsiella- treated for 5 days Repeat CBC (3) Leucocytosis ICD Codes: D72.829 - Elevated white blood cell count, unspecified Status: Resolved Plan: Re check CBC If WBC not too high - would leave off antibiotics for now Remarks Rachel Casarez MD Jul 29, 2017 16:25
[2017-07-29 19:10] VITALS: O2SAT 98
[2017-07-29 19:15] VITALS: BP 135/96; PULSE 85; RESP 24; TEMP 100.3; O2SAT 95
[2017-07-29] MEDS: ACETAMINOPHEN 650 MG SUPP RECTAL PRN (21:20)
[2017-07-29 22:05] LABS: AUTOMATED NEUTROPHIL # 12.3 TH/MM3 (1.8-7.7); BASOPHIL # 0.2 TH/MM3 (0-0.2); BASOPHIL % 1.3 % (0.0-2.0); HEMATOCRIT 40.7 % (39.0-51.0); HEMOGLOBIN 13.1 GM/DL (13.0-17.0); LYMPH % 10.4 % (9.0-44.0); LYMPHOCYTE # 1.5 TH/MM3 (1.0-4.8); MEAN CELL VOLUME 93.8 FL (80.0-100.0); MEAN CORPUSCULAR HEMOGLOBIN 30.2 PG (27.0-34.0); MEAN CORPUSCULAR HGB CONC 32.2 % (32.0-36.0); MONO % 4.9 % (0.0-8.0); MONOCYTE # 0.7 TH/MM3 (0-0.9); NEUT % 83.4 % (16.0-70.0); PLATELET COUNT 346 TH/MM3 (150-450); RED BLOOD COUNT 4.34 MIL/MM3 (4.50-5.90); RED CELL DISTRIBUTION WIDTH 15.5 % (11.6-17.2); WHITE BLOOD COUNT 14.7 TH/MM3 (4.0-11.0)
[2017-07-29 22:17] LABS: CALCIUM 9.8 MG/DL (8.5-10.1)
[2017-07-29 22:18] LABS: BICARBONATE 27.5 MEQ/L (21.0-32.0)
[2017-07-29 22:21] LABS: CREATININE 1.2 MG/DL (0.60-1.30)
[2017-07-29 22:53] VITALS: PULSE 108
[2017-07-29 23:00] VITALS: BP 117/104; PULSE 108; RESP 37; TEMP 98.1; O2SAT 97
[2017-07-29 23:03] VITALS: BP 111/89; PULSE 106; RESP 18; O2SAT 99
[2017-07-30] VITALS (26 sets, daily range): BP systolic 81–120; BP diastolic 59–87; PULSE 78–148; RESP 14–49; TEMP 98.7–99.4; O2SAT 94–100
[2017-07-30] MEDS: QUEtiapine FUMARATE 25 MG TAB PO SCH ×2 (00:46→19:45)
[2017-07-30] MEDS: METOCLOPRAMIDE HCL SYRUP 10 MG/10 ML UDC PEG SCH ×5 (00:47→19:45)
[2017-07-30] MEDS: LACTOBACILLUS ACIDOPHILUS TAB PEG SCH ×3 (00:47→19:45)
[2017-07-30] MEDS: LANSOPRAZOLE SOLUTAB 30 MG TAB PEG SCH ×3 (00:47→19:45)
[2017-07-30] MEDS: azaTHIOprine 50 MG TAB PEG SCH ×2 (05:17→18:11)
[2017-07-30 05:47] LABS: AUTOMATED NEUTROPHIL # 9.5 TH/MM3 (1.8-7.7); BASOPHIL # 0.1 TH/MM3 (0-0.2); EOSINOPHIL % 0.1 % (0.0-4.0); HEMATOCRIT 41.4 % (39.0-51.0); HEMOGLOBIN 13.2 GM/DL (13.0-17.0); MEAN CELL VOLUME 93.8 FL (80.0-100.0); MEAN CORPUSCULAR HEMOGLOBIN 29.8 PG (27.0-34.0); MEAN CORPUSCULAR HGB CONC 31.8 % (32.0-36.0); MEAN PLATELET VOLUME 7.7 FL (7.0-11.0); MONO % 5.1 % (0.0-8.0); MONOCYTE # 0.6 TH/MM3 (0-0.9); NEUT % 77.8 % (16.0-70.0); PLATELET COUNT 338 TH/MM3 (150-450); RED BLOOD COUNT 4.42 MIL/MM3 (4.50-5.90); RED CELL DISTRIBUTION WIDTH 15.6 % (11.6-17.2); WHITE BLOOD COUNT 12.2 TH/MM3 (4.0-11.0)
[2017-07-30] MEDS: JUVEN POWDER 1 PACK G-TUBE SCH ×2 (09:00→19:46)
[2017-07-30] MEDS: SENNOSIDES SYRUP 8.8 MG/5 ML CUP PEG SCH (09:48)
[2017-07-30] MEDS: predniSONE 20 MG TAB PEG SCH (09:53)
[2017-07-30] MEDS: FLUoxetine HCL LIQUID 20 MG/5 ML CUP PEG SCH (09:54)
[2017-07-30] MEDS: ENOXAPARIN SODIUM 40 MG/0.4 ML SYRINGE SQ SCH (09:55)
--- NOTE | 2017-07-30 12:28 | HHI.PR ---
Subjective Remarks Patient seen and examined today for follow-up on acute supraventricular tachycardia, chronic neuro-Behcet's syndrome. Patient developed supraventricular tachycardia last evening with heart rate going 170s, patient was transferred to the ICU with the administration adenosine with appropriate response. Patient started on Cardizem IV with rate control. Upon evaluating the patient this morning he indicates that he is doing well. Denies any shortness of breath, dyspnea, stomach pain, chest pain, nausea, vomiting. Upon review medical records is not indication of any fever, did have tachypnea during the same time. Possible etiology could be stress from choking on secretions. Objective Vitals Vital Signs Date Time Temp Pulse Resp B/P (MAP) Pulse Ox O2 Delivery O2 Flow Rate FiO2 07/30/17 06:00 106 36 94/68 (77) 97 07/30/17 06:00 106 07/30/17 05:00 108 31 101/72 (82) 97 07/30/17 04:00 116 07/30/17 04:00 99.4 116 49 94/75 (81) 96 07/30/17 03:00 134 14 115/76 (89) 95 07/30/17 02:50 138 114/72 07/30/17 02:30 96 Nasal Cannula 2.00 07/30/17 02:00 148 19 114/72 (86) 96 07/30/17 02:00 148 07/30/17 01:00 98 25 112/83 (93) 98 07/30/17 00:00 100 07/30/17 00:00 100 18 120/82 (95) 99 07/29/17 23:03 106 18 111/89 (96) 99 07/29/17 23:00 98.1 108 37 117/104 (108) 97 07/29/17 22:53 108 07/29/17 19:15 100.3 85 24 135/96 (109) 95 07/29/17 19:10 98 21 I/O 07/29/17 07/29/17 07/29/17 07/30/17 07/30/17 07/30/17 07:00 15:00 23:00 07:00 15:00 23:00 Intake Total 480 ml 15 ml Output Total 300 ml 850 ml Balance 180 ml -835 ml IV Total 15 ml Tube Feeding 240 ml Other 240 ml Output Urine Total 300 ml 850 ml # Bowel Movements 2 1 1 Result Diagram: 07/30/17 0540 07/29/17 2469 Objective Remarks GENERAL: Well-developed, cachectic and contracted. HEENT: Head is normocephalic without any lesions or masses noted. Facial features are symmetric. Eyes: Extraocular muscles are intact. Conjunctivae were clear. NECK: Trachea midline no deviation. CARDIAC: Regular rhythm, tachycardia noted. S1/S2 are heard. No murmurs gallops or rubs. LUNGS: Clear to auscultation bilaterally. No wheeze, rhonchi or rales. No use of accessory muscles on inspiration or expiration. ABDOMEN: Soft, nontender. Nondistended. Bowel sounds heard in all 4 quadrants. No organomegaly or masses. Negative rebound, negative guarding. PEG tube noted without any excoriation. EXTREMITIES: No edema, pulses are equal bilaterally. No cyanosis or clubbing. Procedures 07/19/16 EGD with PEG tube placement 09/27/16 colonoscopy Urinary Catheter: Yes Assessment to: Continue Kowalski insert reason: Obstruction/Retention Date of Insertion: Jul 26, 2017 Vascular Central Line Catheter: No A/P Assessment and Plan Supraventricular tachycardia, unknown etiology No source has been identified, no signs of infection, patient did have tachypnea which he could've had acute distress from clearing secretions Status post adenosine with appropriate response Continued on Cardizem IV with rate control, will discontinue Start Lopressor 12.5 mg twice daily Neuro-Behcet, history of frontal lobe CVA, encephalopathy, history of meningitis , Blurred vision/double vision, urinary retention, chronic No new changes on imaging. Patient was followed by neurology. Aphasic at baseline. Continue Imuran, prednisone EEG shows mild to moderate slowing at times of various depending on the epoch , there was no epileptic activity seen Continue PT/OT Palliative care still following the patient. 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 07/25/17, next time would be 08/15/17 --Decreased oral intake and dysphagia on initial presentation Speech therapy evaluated patient. S/P barium swallow. Patient with severe dysphagia. GI was consulted and PEG tube was placed. Dietary reconsulted for bolus feeding recommendations Continue bolus feeding per dietary recommendations Low-grade fever , recurrent, resolved Chest x-ray indicating right lower lobe pneumonia sputum culture indicating Klebsiella pneumonia ESBL positive Discontinued ertapenem, Levaquin and vancomycin Infectious disease consulted, Discussed with infectious disease who indicated discontinuation of ertapenem , sputum likely colonization Urinalysis taken from chronic indwelling Kowalski without changing, did indicate Daphney parapsilosis, patient did give fluconazole 200 mg by mouth 2 Repeat urinalysis unremarkable for any signs of infection, does not require any culture Possible ileus vs early small bowel obstruction, resolved Follow-up abdominal x-ray, shows normal bowel gas pattern Restarted tube feeding, tolerating well. Changing to by mouth Reglan. Coccyx decubitus. Ankle ulceration Wound care nurse is following the patient for management Patient with specialty bed Mood disorder, depression Psychiatry evaluated patient and made recommendations Prozac 40 mg daily Seroquel 25 mg at bedtime Diabetes Glucose continues to be well controlled, DVT Prophylaxis: Janeth Orosco/SCD Discharge Planning Case management for discharge planning, Ede Richardson Jul 30, 2017 12:28
--- NOTE | 2017-07-30 13:26 | EKG ---
Date Performed: 07/30/2017 Time Performed: 02:11:36 PTAGE: 47 years EKG: Supraventricular tachycardia with a rate of 179, probable paroxysmal supraventricular tachy cardia Marked baseline artifact Compared to previous tracing, heart rate has gone from 114 to 179. Ba seline artifact now present. Clinical correlation and follow-up tracing recommended. ABNORMAL RHYTHM ECG PREVIOUS TRACING : 10/05/2016 23.17 DOCTOR: London Yi Interpretating Date/Time 07/30/2017 13:25:47
[2017-07-30] MEDS: METOPROLOL TARTRATE 25 MG TAB PEG SCH ×2 (13:35→19:45)
[2017-07-30] MEDS: HYOSCYAMINE SOLN 0.125 MG/ML 15 ML BTL PEG PRN (17:45)
[2017-07-31] VITALS (20 sets, daily range): BP systolic 76–162; BP diastolic 55–119; PULSE 74–96; RESP 13–30; TEMP 97.2–98.5; O2SAT 96–100
[2017-07-31] MEDS: azaTHIOprine 50 MG TAB PEG SCH ×2 (04:25→17:37)
[2017-07-31 05:06] LABS: AUTOMATED NEUTROPHIL # 8.4 TH/MM3 (1.8-7.7); BASOPHIL % 0.3 % (0.0-2.0); EOSINOPHIL % 0.3 % (0.0-4.0); HEMATOCRIT 38.4 % (39.0-51.0); HEMOGLOBIN 12.2 GM/DL (13.0-17.0); LYMPH % 13.3 % (9.0-44.0); LYMPHOCYTE # 1.4 TH/MM3 (1.0-4.8); MEAN CELL VOLUME 94.5 FL (80.0-100.0); MEAN CORPUSCULAR HGB CONC 31.8 % (32.0-36.0); MEAN PLATELET VOLUME 8.2 FL (7.0-11.0); MONO % 5.9 % (0.0-8.0); MONOCYTE # 0.6 TH/MM3 (0-0.9); NEUT % 80.2 % (16.0-70.0); PLATELET COUNT 308 TH/MM3 (150-450); RED BLOOD COUNT 4.06 MIL/MM3 (4.50-5.90); WHITE BLOOD COUNT 10.4 TH/MM3 (4.0-11.0)
[2017-07-31 05:17] LABS: BICARBONATE 30.4 MEQ/L (21.0-32.0); CALCIUM 8.9 MG/DL (8.5-10.1); CREATININE 0.76 MG/DL (0.60-1.30); MAGNESIUM 2.5 MG/DL (1.5-2.5)
[2017-07-31] MEDS: JUVEN POWDER 1 PACK G-TUBE SCH ×2 (09:00→20:59)
[2017-07-31] MEDS: SENNOSIDES SYRUP 8.8 MG/5 ML CUP PEG SCH (09:49)
[2017-07-31] MEDS: METOCLOPRAMIDE HCL SYRUP 10 MG/10 ML UDC PEG SCH ×4 (09:49→20:58)
[2017-07-31] MEDS: LACTOBACILLUS ACIDOPHILUS TAB PEG SCH ×2 (09:49→20:58)
[2017-07-31] MEDS: FLUoxetine HCL LIQUID 20 MG/5 ML CUP PEG SCH (09:50)
[2017-07-31] MEDS: METOPROLOL TARTRATE 25 MG TAB PEG SCH (09:50)
[2017-07-31] MEDS: predniSONE 20 MG TAB PEG SCH (09:50)
[2017-07-31] MEDS: LANSOPRAZOLE SOLUTAB 30 MG TAB PEG SCH ×2 (09:50→20:58)
[2017-07-31] MEDS: ENOXAPARIN SODIUM 40 MG/0.4 ML SYRINGE SQ SCH (09:51)
--- NOTE | 2017-07-31 13:08 | HHI.PR ---
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 Patient has not had any recurrent episodes of tachycardia. He is clinically stable. Afebrile Objective Vitals Vital Signs Date Time Temp Pulse Resp B/P (MAP) Pulse Ox O2 Delivery O2 Flow Rate FiO2 07/31/17 12:01 78 13 76/55 (62) 96 07/31/17 11:27 98 Nasal Cannula 2.00 07/31/17 11:01 82 15 98/72 (81) 98 07/31/17 10:01 94 13 108/80 (89) 98 07/31/17 09:01 97.6 94 17 104/73 (83) 98 07/31/17 09:00 96 14 98 07/31/17 08:01 96 13 97 07/31/17 08:00 94 20 97 07/31/17 08:00 94 20 97 07/31/17 07:01 92 18 98/76 (83) 96 07/31/17 06:00 92 07/31/17 06:00 92 17 93/73 (80) 98 07/31/17 05:00 88 16 106/80 (89) 96 07/31/17 04:00 98.4 92 23 85/73 (77) 99 07/31/17 04:00 92 07/31/17 03:00 86 23 108/69 (82) 98 07/31/17 02:00 80 07/31/17 02:00 80 30 100/70 (80) 98 07/31/17 01:00 74 19 107/73 (84) 97 07/31/17 00:00 74 07/31/17 00:00 98.5 74 30 80/67 (71) 99 07/30/17 23:00 78 24 81/73 (76) 99 07/30/17 23:00 78 07/30/17 22:00 80 23 99/59 (72) 99 07/30/17 22:00 80 07/30/17 21:54 100 2.00 07/30/17 21:00 84 07/30/17 21:00 84 22 90/67 (75) 99 07/30/17 20:00 82 07/30/17 20:00 98.7 82 19 100/68 (79) 99 07/30/17 19:00 90 25 113/74 (87) 98 07/30/17 19:00 90 07/30/17 18:00 84 07/30/17 18:00 84 23 105/87 (93) 94 07/30/17 17:00 82 32 96/77 (83) 99 07/30/17 17:00 82 07/30/17 16:00 78 07/30/17 16:00 98.7 78 30 92/65 (74) 99 07/30/17 15:00 82 22 98/71 (80) 99 07/30/17 15:00 82 07/30/17 14:40 88 102/74 07/30/17 14:00 94 07/30/17 14:00 94 21 102/74 (83) 96 I/O 07/30/17 07/30/17 07/30/17 07/31/17 07/31/17 07/31/17 07:00 15:00 23:00 07:00 15:00 23:00 Intake Total 15 ml 46.7 ml 1000 ml 1000 ml Output Total 850 ml 450 ml 650 ml Balance -835 ml 46.7 ml 550 ml 350 ml IV Total 15 ml 46.7 ml Tube Feeding 480 ml 480 ml Other 520 ml 520 ml Output Urine Total 850 ml 450 ml 650 ml # Bowel Movements 1 0 1 Result Diagram: 07/31/1743407/31/17434 Objective Remarks GENERAL: Well-developed, cachectic and contracted. HEENT: Head is normocephalic without any lesions or masses noted. Facial features are symmetric. Eyes: Extraocular muscles are intact. Conjunctivae were clear. NECK: Trachea midline no deviation. CARDIAC: Regular rhythm, tachycardia noted. S1/S2 are heard. No murmurs gallops or rubs. LUNGS: Clear to auscultation bilaterally. No wheeze, rhonchi or rales. No use of accessory muscles on inspiration or expiration. ABDOMEN: Soft, nontender. Nondistended. Bowel sounds heard in all 4 quadrants. No organomegaly or masses. Negative rebound, negative guarding. PEG tube noted without any excoriation. EXTREMITIES: No edema, pulses are equal bilaterally. No cyanosis or clubbing. Procedures 07/19/16 EGD with PEG tube placement 09/27/16 colonoscopy Urinary Catheter: Yes Assessment to: Continue Kowalski insert reason: Obstruction/Retention Date of Insertion: Jul 26, 2017 Vascular Central Line Catheter: No A/P Assessment and Plan Supraventricular tachycardia, unknown etiology No source has been identified, no signs of infection, patient did have tachypnea which he could've had acute distress from clearing secretions Status post adenosine with appropriate response Continued on Cardizem IV with rate control, will discontinue Discontinue Lopressor 12.5 mg twice daily due to low blood pressure Neuro-Behcet, history of frontal lobe CVA, encephalopathy, history of meningitis , Blurred vision/double vision, urinary retention, chronic No new changes on imaging. Patient was followed by neurology. Aphasic at baseline. Continue Imuran, prednisone EEG shows mild to moderate slowing at times of various depending on the epoch , there was no epileptic activity seen Continue PT/OT Palliative care still following the patient. 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 07/25/17, next time would be 08/15/17 --Decreased oral intake and dysphagia on initial presentation Speech therapy evaluated patient. S/P barium swallow. Patient with severe dysphagia. GI was consulted and PEG tube was placed. Dietary reconsulted for bolus feeding recommendations Continue bolus feeding per dietary recommendations Low-grade fever , recurrent, resolved Chest x-ray indicating right lower lobe pneumonia sputum culture indicating Klebsiella pneumonia ESBL positive Discontinued ertapenem, Levaquin and vancomycin Infectious disease consulted, Discussed with infectious disease who indicated discontinuation of ertapenem , sputum likely colonization Urinalysis taken from chronic indwelling Kowalski without changing, did indicate Daphney parapsilosis, patient did give fluconazole 200 mg by mouth 2 Repeat urinalysis unremarkable for any signs of infection, does not require any culture Possible ileus vs early small bowel obstruction, resolved Follow-up abdominal x-ray, shows normal bowel gas pattern Restarted tube feeding, tolerating well. Changing to by mouth Reglan. Coccyx decubitus. Ankle ulceration Wound care nurse is following the patient for management Patient with specialty bed Mood disorder, depression Psychiatry evaluated patient and made recommendations Prozac 40 mg daily Seroquel 25 mg at bedtime Diabetes Glucose continues to be well controlled, DVT Prophylaxis: Loveflorentin, TEDs/SCD Discharge Planning Case management for discharge planning, Ede Richardson Jul 31, 2017 13:08
--- NOTE | 2017-07-31 19:03 | HHI.IDPN ---
Subjective Subjective Remarks is a 46 AAM with Neuro Behcet's disease, difficult placement and not safe discharge so continues to reside at [facility]. Transferred to ICU for SVT No fevers in 48hrs Antibiotics None Got IV Ertapenem 07/23-07/28 Lines Line sites with no e.o infection Past Medical History reviewed Allergies: Uncoded Allergies: ADHESIVE TAPE (Allergy, Severe, 09/21/16) BLISTERS Objective . Vital Signs Date Time Temp Pulse Resp B/P (MAP) Pulse Ox O2 Delivery O2 Flow Rate FiO2 07/31/17 16:01 80 29 99/80 (86) 96 07/31/17 15:01 80 27 100/73 (82) 97 07/31/17 12:01 78 13 94/55 (68) 96 07/31/17 11:27 98 Nasal Cannula 2.00 07/31/17 11:01 82 15 98/72 (81) 98 07/31/17 10:01 94 13 108/80 (89) 98 07/31/17 09:01 97.6 94 17 104/73 (83) 98 07/31/17 09:00 96 14 98 07/31/17 08:01 96 13 97 07/31/17 08:00 94 20 97 07/31/17 08:00 94 20 97 07/31/17 07:01 92 18 98/76 (83) 96 07/31/17 06:00 92 07/31/17 06:00 92 17 93/73 (80) 98 07/31/17 05:00 88 16 106/80 (89) 96 07/31/17 04:00 98.4 92 23 85/73 (77) 99 07/31/17 04:00 92 07/31/17 03:00 86 23 108/69 (82) 98 07/31/17 02:00 80 07/31/17 02:00 80 30 100/70 (80) 98 07/31/17 01:00 74 19 107/73 (84) 97 07/31/17 00:00 74 07/31/17 00:00 98.5 74 30 80/67 (71) 99 07/30/17 23:00 78 24 81/73 (76) 99 07/30/17 23:00 78 07/30/17 22:00 80 23 99/59 (72) 99 07/30/17 22:00 80 07/30/17 21:54 100 2.00 07/30/17 21:00 84 07/30/17 21:00 84 22 90/67 (75) 99 07/30/17 20:00 82 07/30/17 20:00 98.7 82 19 100/68 (79) 99 07/31/17 07/31/17 08/01/17 15:00 23:00 07:00 Intake Total 2120 ml Output Total 320 ml Balance 1800 ml IV Total 1000 ml Tube Feeding 600 ml Other 520 ml Output Urine Total 320 ml . Laboratory Tests Test 07/29/17 21:59 07/30/17 05:40 07/31/17 04:35 White Blood Count 14.7 TH/MM3 12.2 TH/MM3 10.4 TH/MM3 Red Blood Count 4.34 MIL/MM3 4.42 MIL/MM3 4.06 MIL/MM3 Hemoglobin 13.1 GM/DL 13.2 GM/DL 12.2 GM/DL Hematocrit 40.7 % 41.4 % 38.4 % Mean Corpuscular Volume 93.8 FL 93.8 FL 94.5 FL Mean Corpuscular Hemoglobin 30.2 PG 29.8 PG 30.0 PG Mean Corpuscular Hemoglobin Concent 32.2 % 31.8 % 31.8 % Red Cell Distribution Width 15.5 % 15.6 % 15.0 % Platelet Count 346 TH/MM3 338 TH/MM3 308 TH/MM3 Mean Platelet Volume 8.0 FL 7.7 FL 8.2 FL Neutrophils (%) (Auto) 83.4 % 77.8 % 80.2 % Lymphocytes (%) (Auto) 10.4 % 16.0 % 13.3 % Monocytes (%) (Auto) 4.9 % 5.1 % 5.9 % Eosinophils (%) (Auto) 0.0 % 0.1 % 0.3 % Basophils (%) (Auto) 1.3 % 1.0 % 0.3 % Neutrophils # (Auto) 12.3 TH/MM3 9.5 TH/MM3 8.4 TH/MM3 Lymphocytes # (Auto) 1.5 TH/MM3 2.0 TH/MM3 1.4 TH/MM3 Monocytes # (Auto) 0.7 TH/MM3 0.6 TH/MM3 0.6 TH/MM3 Eosinophils # (Auto) 0.0 TH/MM3 0.0 TH/MM3 0.0 TH/MM3 Basophils # (Auto) 0.2 TH/MM3 0.1 TH/MM3 0.0 TH/MM3 CBC Comment DIFF FINAL DIFF FINAL DIFF FINAL Differential Comment Laboratory Tests Test 07/29/17 21:59 07/31/17 04:35 Blood Urea Nitrogen 27 MG/DL 28 MG/DL Creatinine 1.20 MG/DL 0.76 MG/DL Random Glucose 93 MG/DL 79 MG/DL Calcium Level 9.8 MG/DL 8.9 MG/DL Sodium Level 143 MEQ/L 143 MEQ/L Potassium Level 3.9 MEQ/L 3.7 MEQ/L Chloride Level 108 MEQ/L 108 MEQ/L Carbon Dioxide Level 27.5 MEQ/L 30.4 MEQ/L Anion Gap 8 MEQ/L 5 MEQ/L Estimat Glomerular Filtration Rate 79 ML/MIN 134 ML/MIN Magnesium Level 2.5 MG/DL Imaging Last Impressions Chest X-Ray 10/11/16 0000 Signed Impressions: Service Date/Time: Tuesday, October 11, 2016 21:23 - CONCLUSION: 1. Bilateral hazy airspace disease. Differential diagnosis includes edema and aspiration. Sumit Bourgeois MD Hip Aspiration/Injection 10/08/16 0000 Signed Impressions: Service Date/Time: Tuesday, October 11, 2016 13:41 - CONCLUSION: Uncomplicated aspiration as above. Minimal fluid on the right. No identifiable fluid on the left Clayton Max MD Lower Extremity Ultrasound 10/06/16 0000 Signed Impressions: Service Date/Time: September 17:29 - CONCLUSION: Normal examination. Josafat Meyer MD CT Angiography 10/06/16 0000 Signed Impressions: Service Date/Time: September 20:31 - CONCLUSION: Minimal right upper lobe infiltrate and basilar atelectasis. No evidence of pulmonary embolism.. Josafat Meyer MD Abdomen/Pelvis CT 10/06/16 0000 Signed Impressions: Service Date/Time: September 20:31 - CONCLUSION: No evidence of pelvic abscess. Josafat Meyer MD Upper Extremity Ultrasound 09/28/16 0000 Signed Impressions: Service Date/Time: Wednesday, September 28, 2016 19:15 - CONCLUSION: 1. Occlusive superficial thrombosis in the left cephalic vein near the antecubital fossa. No deep venous thrombosis. Sumit Bourgeois MD Renal Ultrasound 08/28/16 Signed Impressions: Service Date/Time: Sunday, August 28, 2016 20:03 - CONCLUSION: Mild increased echotexture of both kidneys. Baldev Vu MD Lumbar Puncture Fluoroscopy 08/17/16 0000 Signed Impressions: Service Date/Time: Wednesday, August 17, 2016 12:26 - CONCLUSION: Uncomplicated fluoroscopically guided lumbar puncture. Vishal Beckford Jr., MD Brain MRI 08/17/16 Signed Impressions: Service Date/Time: Wednesday, August 17, 2016 13:28 - CONCLUSION: Remote long-standing areas of abnormality in the brainstem and middle cerebellar peduncle consistent with remote infarcts or contusion. No acute intracranial abnormality. Chacho Bright MD Abdomen X-Ray 08/17/16 Signed Impressions: Service Date/Time: Wednesday, August 17, 2016 13:02 - CONCLUSION: No evidence of obstruction. No MRI incompatible foreign body is identified. Chacho Bright MD Head CT 08/16/16 Signed Impressions: Service Date/Time: Tuesday, August 16, 2016 09:55 - CONCLUSION: Chronic ischemic changes left frontal lobe possibly from evidence of previous ventriculostomy placement, unchanged. No acute intracranial abnormality. Gen Potter MD Modified Barium Swallow 08/15/16 0000 Signed Impressions: Service Date/Time: Monday, August 15, 2016 00:00 - CONCLUSION: See report above and speech pathology report Chacho Bright MD Physical Exam GENERAL: Awake , chronically ill appearing patient. SKIN: Old scars on arms. EYES: Pupils equal round and reactive. Extraocular motions intact. No scleral icterus. No injection or drainage. ENT: moist mucosae drooling. Significant secretions CARDIOVASCULAR: HS audible. No murmur. RESPIRATORY:. Breath sounds equal bilaterally. Coarse rhonchi equal GASTROINTESTINAL: Abdomen soft, non-tender, minimally distended. : maurice in place with clear yellow urine MUSCULOSKELETAL: Extremities without clubbing, cyanosis, or edema. Wasting and contractures. Assessment & Plan Diagnosis: (1) Neurologic type Behcet's syndrome ICD Codes: M35.2 - Behcet's disease Status: Chronic (2) Fever ICD Codes: R50.9 - Fever, unspecified Status: Resolved Plan: Sputum culture from 07/21 did grow ESBL Klebsiella- treated for 5 days WBC normal If recurrent fevers- then will need cultures again. (3) Leucocytosis ICD Codes: D72.829 - Elevated white blood cell count, unspecified Status: Resolved Plan: Re check CBC If WBC not too high - would leave off antibiotics for now Remarks Rachel Casarez MD Jul 31, 2017 19:02
[2017-07-31] MEDS: QUEtiapine FUMARATE 25 MG TAB PO SCH (20:59)
[2017-08-01] VITALS: BP 162/119; PULSE 79; RESP 24; TEMP 97.2; O2SAT 100
[2017-08-01] MEDS: azaTHIOprine 50 MG TAB PEG SCH ×2 (05:16→17:17)
[2017-08-01] MEDS: LACTOBACILLUS ACIDOPHILUS TAB PEG SCH ×2 (08:53→20:43)
[2017-08-01] MEDS: predniSONE 20 MG TAB PEG SCH (08:53)
[2017-08-01] MEDS: JUVEN POWDER 1 PACK G-TUBE SCH ×2 (08:54→20:43)
[2017-08-01] MEDS: METOCLOPRAMIDE HCL SYRUP 10 MG/10 ML UDC PEG SCH ×4 (08:54→20:43)
[2017-08-01] MEDS: LANSOPRAZOLE SOLUTAB 30 MG TAB PEG SCH ×2 (08:54→20:43)
[2017-08-01] MEDS: FLUoxetine HCL LIQUID 20 MG/5 ML CUP PEG SCH (08:54)
[2017-08-01] MEDS: ENOXAPARIN SODIUM 40 MG/0.4 ML SYRINGE SQ SCH (08:55)
[2017-08-01 09:00] VITALS: BP 103/86; PULSE 94; RESP 18; TEMP 97.8; O2SAT 99
[2017-08-01] MEDS: SENNOSIDES SYRUP 8.8 MG/5 ML CUP PEG SCH (09:00)
--- NOTE | 2017-08-01 12:05 | HHI.PR ---
Subjective Remarks Follow-up neuro-Behcet's syndrome and single episode of SVT. Patient seen and examined, lying in bed comfortably with no complaints. He is stable. No reports of any acute events overnight. Telemetry reviewed, no tachycardia noted. Objective Vitals Vital Signs Date Time Temp Pulse Resp B/P (MAP) Pulse Ox O2 Delivery O2 Flow Rate FiO2 08/01/17 09:00 97.8 94 18 103/86 (92) 99 08/01/17 00:00 97.2 79 24 162/119 (133) 100 07/31/17 20:30 99 Nasal Cannula 2.00 07/31/17 20:00 97.2 79 24 162/119 (133) 100 07/31/17 16:01 80 29 99/80 (86) 96 07/31/17 15:01 80 27 100/73 (82) 97 I/O 07/31/17 07/31/17 07/31/17 08/01/17 08/01/17 08/01/17 07:00 15:00 23:00 07:00 15:00 23:00 Intake Total 1000 ml 2120 ml 0 ml Output Total 650 ml 320 ml 400 ml Balance 350 ml 1800 ml -400 ml Intake Oral 0 ml IV Total 1000 ml Tube Feeding 480 ml 600 ml Other 520 ml 520 ml Output Urine Total 650 ml 320 ml 400 ml # Bowel Movements 1 0 Result Diagram: 07/31/17 0435 07/31/17 0435 Imaging Last Impressions Abdomen X-Ray 07/25/17 0000 Signed Impressions: Service Date/Time: Tuesday, July 25, 2017 13:11 - CONCLUSION: 1. Normal bowel gas pattern. 2. Percutaneous gastrostomy tube. Gen Potter MD Chest X-Ray 07/24/17 0000 Signed Impressions: Service Date/Time: Monday, July 24, 2017 11:03 - CONCLUSION: 1. Cardia mainly with mild positive fluid balance. 2. Linear parenchymal opacity in the left midlung zone, likely atelectasis. Isaías Christianson MD Hip Aspiration/Injection 10/08/16 0000 Signed Impressions: Service Date/Time: Tuesday, October 11, 2016 13:41 - CONCLUSION: Uncomplicated aspiration as above. Minimal fluid on the right. No identifiable fluid on the left Clayton Max MD Lower Extremity Ultrasound 4/13/17 0000 Signed Impressions: Service Date/Time: September 17:29 - CONCLUSION: Normal examination. Josafat Meyer MD CT Angiography 10/06/16 Signed Impressions: Service Date/Time: September 20:31 - CONCLUSION: Minimal right upper lobe infiltrate and basilar atelectasis. No evidence of pulmonary embolism.. Josafat Meyer MD Abdomen/Pelvis CT 10/06/16 Signed Impressions: Service Date/Time: September 20:31 - CONCLUSION: No evidence of pelvic abscess. Josafat Meyer MD Upper Extremity Ultrasound 09/28/16 Signed Impressions: Service Date/Time: Wednesday, September 28, 2016 19:15 - CONCLUSION: 1. Occlusive superficial thrombosis in the left cephalic vein near the antecubital fossa. No deep venous thrombosis. Sumit Bourgeois MD Renal Ultrasound 08/28/16 Signed Impressions: Service Date/Time: Sunday, August 28, 2016 20:03 - CONCLUSION: Mild increased echotexture of both kidneys. Baldev Vu MD Lumbar Puncture Fluoroscopy 08/17/16 Signed Impressions: Service Date/Time: Wednesday, August 17, 2016 12:26 - CONCLUSION: Uncomplicated fluoroscopically guided lumbar puncture. Vishal Beckford Jr., MD Brain MRI 08/17/16 Signed Impressions: Service Date/Time: Wednesday, August 17, 2016 13:28 - CONCLUSION: Remote long-standing areas of abnormality in the brainstem and middle cerebellar peduncle consistent with remote infarcts or contusion. No acute intracranial abnormality. Chacho Bright MD Head CT 08/16/16 Signed Impressions: Service Date/Time: Tuesday, August 16, 2016 09:55 - CONCLUSION: Chronic ischemic changes left frontal lobe possibly from evidence of previous ventriculostomy placement, unchanged. No acute intracranial abnormality. Gen Potter MD Modified Barium Swallow 08/15/16 0000 Signed Impressions: Service Date/Time: Monday, August 15, 2016 00:00 - CONCLUSION: See report above and speech pathology report Chacho Bright MD Objective Remarks GENERAL: Well-developed cachectic and contracted male patient in NAD. Awake and alert. Nodding appropriately. SKIN: Warm and dry. No rash. HEENT: Normocephalic. Atraumatic. Pupils equal and round. No scleral icterus. No injection or drainage. No nasal bleeding or discharge. Mucous membranes pink and moist. NECK: Supple. Trachea midline. CARDIOVASCULAR: Regular rate and rhythm. S1, S2 noted. No murmur appreciated. RESPIRATORY: No accessory muscle use. Course and rhonchi throughout lung lawson. Breath sounds equal bilaterally. GASTROINTESTINAL: Abdomen soft, non-tender, nondistended. Normoactive bowel sounds x4. No guarding. PEG tube noted, no erythema or drainage from site, c/d/ i. MUSCULOSKELETAL: No obvious deformities. Extremities without clubbing, cyanosis , or edema. 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 - Behcet's disease Status: Chronic (2) Hospital acquired PNA ICD Code: J18.9 - Pneumonia, unspecified organism Status: Resolved (3) Sepsis ICD Code: A41.9 - Sepsis, unspecified organism Status: Resolved (4) Encephalopathy ICD Code: G93.40 - Encephalopathy, unspecified Status: Resolved (5) GI bleed ICD Code: K92.2 - Gastrointestinal hemorrhage, unspecified Status: Resolved (6) HCAP (healthcare-associated pneumonia) ICD Code: J18.9 - Pneumonia, unspecified organism Status: Resolved (7) UTI (urinary tract infection) ICD Code: N39.0 - Urinary tract infection, site not specified Status: Resolved (8) Leucocytosis ICD Code: D72.829 - Elevated white blood cell count, unspecified Status: Resolved (9) Fever ICD Code: R50.9 - Fever, unspecified Status: Resolved (10) Effusion of hip joint ICD Code: M25.459 - Effusion, unspecified hip Status: Acute (11) 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 Status post adenosine with appropriate response. Status post Cardizem IV. Discontinue Lopressor 12.5 mg twice daily due to low blood pressure. Neuro-Behcet, history of frontal lobe CVA, encephalopathy, history of meningitis , Blurred vision/double vision, urinary retention, chronic No new changes on imaging. Patient was followed by neurology. Aphasic at baseline. Continue Imuran, prednisone EEG shows mild to moderate slowing at times of various depending on the epoch , there was no epileptic activity seen Continue PT/OT Palliative care still following the patient. 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 07/25/17, next time would be 08/15/17 --Decreased oral intake and dysphagia on initial presentation Speech therapy evaluated patient. S/P barium swallow. Patient with severe dysphagia. GI was consulted and PEG tube was placed. Dietary reconsulted for bolus feeding recommendations Continue bolus feeding per dietary recommendations Low-grade fever , recurrent, resolved Chest x-ray indicating right lower lobe pneumonia sputum culture indicating Klebsiella pneumonia ESBL positive Discontinued ertapenem, Levaquin and vancomycin Infectious disease consulted and following. ID indicated discontinuation of ertapenem, sputum likely colonization. Repeat urinalysis unremarkable for any signs of infection, does not require any culture Possible ileus vs early small bowel obstruction, resolved Follow-up abdominal x-ray, shows normal bowel gas pattern Restarted tube feeding, tolerating well. Changing to by mouth Reglan. Coccyx decubitus. Ankle ulceration Wound care nurse is following the patient for management Patient with specialty bed Mood disorder, depression Psychiatry evaluated patient and made recommendations Prozac 40 mg daily Seroquel 50 mg at bedtime Diabetes Glucose continues to be well controlled DVT Prophylaxis: Lovenox, TEDs/SCD Discharge Planning Case management assisting. Problem Qualifiers (1) GI bleed: (2) UTI (urinary tract infection): (3) Effusion of hip joint: Dotty Pacheco Aug 01, 2017 12:05
[2017-08-01 15:17] VITALS: O2SAT 97
[2017-08-01 20:00] VITALS: BP 112/84; PULSE 87; RESP 20; TEMP 97.4; O2SAT 97; O2SAT 98
[2017-08-01] MEDS: QUEtiapine FUMARATE 25 MG TAB PO SCH (20:43)
[2017-08-02] VITALS: BP 120/69; PULSE 85; RESP 20; TEMP 97.3; O2SAT 98
[2017-08-02] MEDS: azaTHIOprine 50 MG TAB PEG SCH ×2 (05:52→17:32)
[2017-08-02 08:00] VITALS: BP 99/79; PULSE 84; RESP 22; TEMP 98; O2SAT 96
--- NOTE | 2017-08-02 08:29 | HHI.PR ---
Subjective Remarks Follow-up neuro-Bechets syndrome and SVT. Patient seen and examined, lying comfortably in bed. Denies any pain. No change in clinical condition. No reports of any acute events overnight. Afebrile. Vital signs stable. Objective Vitals Vital Signs Date Time Temp Pulse Resp B/P (MAP) Pulse Ox O2 Delivery O2 Flow Rate FiO2 08/02/17 00:00 97.3 85 20 120/69 (86) 98 08/01/17 20:00 97 Nasal Cannula 2.00 08/01/17 20:00 97.4 87 20 112/84 (93) 98 08/01/17 15:17 97 Nasal Cannula 2.00 08/01/17 09:00 97.8 94 18 103/86 (92) 99 I/O 08/01/17 08/01/17 08/01/17 08/02/17 08/02/17 08/02/17 07:00 15:00 23:00 07:00 15:00 23:00 Intake Total 0 ml 870 ml 370 ml 640 ml Output Total 400 ml 250 ml 600 ml Balance -400 ml 620 ml 370 ml 40 ml Intake Oral 0 ml 0 ml Tube Feeding 480 ml 240 ml 240 ml Tube Irrigant 390 ml 130 ml 200 ml Other 200 ml Output Urine Total 400 ml 250 ml 600 ml # Bowel Movements 0 2 Result Diagram: 07/31/17 0435 07/31/17 0435 Imaging Last Impressions Abdomen X-Ray 07/25/17 0000 Signed Impressions: Service Date/Time: Tuesday, July 25, 2017 13:11 - CONCLUSION: 1. Normal bowel gas pattern. 2. Percutaneous gastrostomy tube. Gen Potter MD Chest X-Ray 07/24/17 0000 Signed Impressions: Service Date/Time: Monday, July 24, 2017 11:03 - CONCLUSION: 1. Cardia mainly with mild positive fluid balance. 2. Linear parenchymal opacity in the left midlung zone, likely atelectasis. Isaías Christianson MD Hip Aspiration/Injection 10/08/16 0000 Signed Impressions: Service Date/Time: Tuesday, October 11, 2016 13:41 - CONCLUSION: Uncomplicated aspiration as above. Minimal fluid on the right. No identifiable fluid on the left Clayton Max MD Lower Extremity Ultrasound 4/13/17 0000 Signed Impressions: Service Date/Time: September 17:29 - CONCLUSION: Normal examination. Josafat Meyer MD CT Angiography 10/06/16 Signed Impressions: Service Date/Time: September 20:31 - CONCLUSION: Minimal right upper lobe infiltrate and basilar atelectasis. No evidence of pulmonary embolism.. Josafat Meyer MD Abdomen/Pelvis CT 10/06/16 Signed Impressions: Service Date/Time: September 20:31 - CONCLUSION: No evidence of pelvic abscess. Josafat Meyer MD Upper Extremity Ultrasound 09/28/16 Signed Impressions: Service Date/Time: Wednesday, September 28, 2016 19:15 - CONCLUSION: 1. Occlusive superficial thrombosis in the left cephalic vein near the antecubital fossa. No deep venous thrombosis. Sumit Bourgeois MD Renal Ultrasound 08/28/16 Signed Impressions: Service Date/Time: Sunday, August 28, 2016 20:03 - CONCLUSION: Mild increased echotexture of both kidneys. Baldev Vu MD Lumbar Puncture Fluoroscopy 08/17/16 Signed Impressions: Service Date/Time: Wednesday, August 17, 2016 12:26 - CONCLUSION: Uncomplicated fluoroscopically guided lumbar puncture. Vishal Beckford Jr., MD Brain MRI 08/17/16 Signed Impressions: Service Date/Time: Wednesday, August 17, 2016 13:28 - CONCLUSION: Remote long-standing areas of abnormality in the brainstem and middle cerebellar peduncle consistent with remote infarcts or contusion. No acute intracranial abnormality. Chacho Bright MD Head CT 08/16/16 Signed Impressions: Service Date/Time: Tuesday, August 16, 2016 09:55 - CONCLUSION: Chronic ischemic changes left frontal lobe possibly from evidence of previous ventriculostomy placement, unchanged. No acute intracranial abnormality. Gen Potter MD Modified Barium Swallow 08/15/16 0000 Signed Impressions: Service Date/Time: Monday, August 15, 2016 00:00 - CONCLUSION: See report above and speech pathology report Chacho Bright MD Objective Remarks GENERAL: Well-developed cachectic and contracted male patient in NAD. Awake and alert. Nodding appropriately. SKIN: Warm and dry. No rash. HEENT: Normocephalic. Atraumatic. Pupils equal and round. No scleral icterus. No injection or drainage. No nasal bleeding or discharge. Mucous membranes pink and moist. NECK: Supple. Trachea midline. CARDIOVASCULAR: Regular rate and rhythm. S1, S2 noted. No murmur appreciated. RESPIRATORY: No accessory muscle use. Course and rhonchi throughout lung lawson. Breath sounds equal bilaterally. GASTROINTESTINAL: Abdomen soft, non-tender, nondistended. Normoactive bowel sounds x4. No guarding. PEG tube noted, no erythema or drainage from site, c/d/ i. MUSCULOSKELETAL: No obvious deformities. Extremities without clubbing, cyanosis , or edema. 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 - Behcet's disease Status: Chronic (2) Hospital acquired PNA ICD Code: J18.9 - Pneumonia, unspecified organism Status: Resolved (3) Sepsis ICD Code: A41.9 - Sepsis, unspecified organism Status: Resolved (4) Encephalopathy ICD Code: G93.40 - Encephalopathy, unspecified Status: Resolved (5) GI bleed ICD Code: K92.2 - Gastrointestinal hemorrhage, unspecified Status: Resolved (6) HCAP (healthcare-associated pneumonia) ICD Code: J18.9 - Pneumonia, unspecified organism Status: Resolved (7) UTI (urinary tract infection) ICD Code: N39.0 - Urinary tract infection, site not specified Status: Resolved (8) Leucocytosis ICD Code: D72.829 - Elevated white blood cell count, unspecified Status: Resolved (9) Fever ICD Code: R50.9 - Fever, unspecified Status: Resolved (10) Effusion of hip joint ICD Code: M25.459 - Effusion, unspecified hip Status: Acute (11) 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 Status post adenosine with appropriate response. Status post Cardizem IV. Discontinue Lopressor 12.5 mg twice daily due to low blood pressure. No further events noted on cardiac telemetry. Neuro-Behcet, history of frontal lobe CVA, encephalopathy, history of meningitis , Blurred vision/double vision, urinary retention, chronic No new changes on imaging. Patient was followed by neurology. Aphasic at baseline. Continue Imuran, prednisone EEG shows mild to moderate slowing at times of various depending on the epoch , there was no epileptic activity seen Continue PT/OT Palliative care still following the patient. 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 07/25/17, next time would be 08/15/17 --Decreased oral intake and dysphagia on initial presentation Speech therapy evaluated patient. S/P barium swallow. Patient with severe dysphagia. GI was consulted and PEG tube was placed. Dietary reconsulted for bolus feeding recommendations Continue bolus feeding per dietary recommendations Low-grade fever , recurrent, resolved Chest x-ray indicating right lower lobe pneumonia sputum culture indicating Klebsiella pneumonia ESBL positive Discontinued ertapenem, Levaquin and vancomycin Infectious disease consulted and following. ID indicated discontinuation of ertapenem, sputum likely colonization. Repeat urinalysis unremarkable for any signs of infection, does not require any culture Possible ileus vs early small bowel obstruction, resolved Follow-up abdominal x-ray, shows normal bowel gas pattern Restarted tube feeding, tolerating well. Changing to by mouth Reglan. Coccyx decubitus. Ankle ulceration Wound care nurse is following the patient for management Patient with specialty bed Mood disorder, depression Psychiatry evaluated patient and made recommendations Prozac 40 mg daily Seroquel 50 mg at bedtime Diabetes Glucose continues to be well controlled DVT Prophylaxis: Lovenox, TEDs/SCD Discharge Planning Case management assisting. Problem Qualifiers (1) GI bleed: (2) UTI (urinary tract infection): (3) Effusion of hip joint: Dotty Pacheco Aug 02, 2017 08:29
[2017-08-02] MEDS: FLUoxetine HCL LIQUID 20 MG/5 ML CUP PEG SCH (08:39)
[2017-08-02] MEDS: METOCLOPRAMIDE HCL SYRUP 10 MG/10 ML UDC PEG SCH ×4 (08:39→21:39)
[2017-08-02] MEDS: ENOXAPARIN SODIUM 40 MG/0.4 ML SYRINGE SQ SCH (08:39)
[2017-08-02] MEDS: predniSONE 20 MG TAB PEG SCH (08:39)
[2017-08-02] MEDS: SENNOSIDES SYRUP 8.8 MG/5 ML CUP PEG SCH (08:39)
[2017-08-02] MEDS: LANSOPRAZOLE SOLUTAB 30 MG TAB PEG SCH ×2 (08:40→21:40)
[2017-08-02] MEDS: LACTOBACILLUS ACIDOPHILUS TAB PEG SCH ×2 (08:40→21:40)
[2017-08-02] MEDS: JUVEN POWDER 1 PACK G-TUBE SCH ×2 (08:40→21:00)
[2017-08-02 09:43] VITALS: PULSE 93
--- NOTE | 2017-08-02 11:06 | HHI.DCPOC ---
Discharge Care Plan Diagnosis: (1) Neurologic type Behcet's syndrome Goals to Promote Your Health * To prevent worsening of your condition and complications * To maintain your health at the optimal level Directions to Meet Your Goals Take your medications as prescribed Follow your dietary instruction Follow activity as directed Keep your appointments as scheduled Take your immunizations and boosters as scheduled If your symptoms worsen call your PCP, if no PCP go to Urgent Care Center or Emergency Room Smoking is Dangerous to Your Health. Avoid second hand smoke Call the 24-hour hour crisis hotline for domestic abuse at Dotty Pacheco Aug 02, 2017 11:06
--- NOTE | 2017-08-02 11:08 | HHI.DS ---
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 - Behcet's disease Status: Chronic (2) Hospital acquired PNA ICD Code: J18.9 - Pneumonia, unspecified organism Status: Resolved (3) Sepsis ICD Code: A41.9 - Sepsis, unspecified organism Status: Resolved (4) Encephalopathy ICD Code: G93.40 - Encephalopathy, unspecified Status: Resolved (5) GI bleed ICD Code: K92.2 - Gastrointestinal hemorrhage, unspecified Status: Resolved (6) HCAP (healthcare-associated pneumonia) ICD Code: J18.9 - Pneumonia, unspecified organism Status: Resolved (7) UTI (urinary tract infection) ICD Code: N39.0 - Urinary tract infection, site not specified Status: Resolved (8) Leucocytosis ICD Code: D72.829 - Elevated white blood cell count, unspecified Status: Acute (9) Fever ICD Code: R50.9 - Fever, unspecified Status: Acute (10) Effusion of hip joint ICD Code: M25.459 - Effusion, unspecified hip Status: Acute (11) 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, unspecified Status: Acute (12) Blurred vision, bilateral ICD Code: H53.8 - Other visual disturbances Status: Acute (13) Bacterial conjunctivitis of left eye ICD Code: H10.9 - Unspecified conjunctivitis Procedures 07/19/16 EGD with PEG tube placement 09/27/16 colonoscopy Brief History - From Admission This is a well known 46-year-old male with history of neuro-Behcet's diagnosed at [place], left frontal CVA, bedbound, nonverbal, mural thrombus, brain abscess, meningitis, hypertension, diabetes, presents for decreased oral intake over the past 23 days, and skin tear at the left upper extremity. All the information obtained from the EMR and ER physicians know as the patient is nonverbal and unable to provide any history. Apparently the patient lives at home with his sister who is his web application dev specialist. She reported the patient has had decreased oral intake over the past few day during this hospitalization the patient had an EGD and PEG placement. 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 The patient was previously in ICU secondary to GI bleed with resolution and transferred to the hospitalist. Today the patient was appear to be somnolent, nonresponsive, and respiratory distress a [facility] was called and the patient was transferred to the ICU. Patient was noted also to have an elevated temperature of 102.9. Neurology and infectious disease have been following the patient since admission to hospital. Critical care medicine was consult for management. CBC/BMP: 07/31/17 0435 07/31/17 0435 Significant Findings Laboratory Tests Test 07/31/17 04:35 Red Blood Count 4.06 MIL/MM3 (4.50-5.90) Hemoglobin 12.2 GM/DL (13.0-17.0) Hematocrit 38.4 % (39.0-51.0) Mean Corpuscular Hemoglobin Concent 31.8 % (32.0-36.0) Neutrophils (%) (Auto) 80.2 % (16.0-70.0) Neutrophils # (Auto) 8.4 TH/MM3 (1.8-7.7) Blood Urea Nitrogen 28 MG/DL (7-18) Chloride Level 108 MEQ/L (98-107) Imaging Last Impressions Abdomen X-Ray 07/25/17 0000 Signed Impressions: Service Date/Time: Tuesday, July 25, 2017 13:11 - CONCLUSION: 1. Normal bowel gas pattern. 2. Percutaneous gastrostomy tube. Gen Potter MD Chest X-Ray 07/24/17 0000 Signed Impressions: Service Date/Time: Monday, July 24, 2017 11:03 - CONCLUSION: 1. Cardia mainly with mild positive fluid balance. 2. Linear parenchymal opacity in the left midlung zone, likely atelectasis. Isaías Christianson MD Hip Aspiration/Injection 10/08/16 0000 Signed Impressions: Service Date/Time: Tuesday, October 11, 2016 13:41 - CONCLUSION: Uncomplicated aspiration as above. Minimal fluid on the right. No identifiable fluid on the left Clayton Max MD Lower Extremity Ultrasound 10/06/16 0000 Signed Impressions: Service Date/Time: September 17:29 - CONCLUSION: Normal examination. Josafat Meyer MD CT Angiography 10/06/16 0000 Signed Impressions: Service Date/Time: September 20:31 - CONCLUSION: Minimal right upper lobe infiltrate and basilar atelectasis. No evidence of pulmonary embolism.. Josafat Meyer MD Abdomen/Pelvis CT 10/06/16 Signed Impressions: Service Date/Time: September 20:31 - CONCLUSION: No evidence of pelvic abscess. Josafat Meyer MD Upper Extremity Ultrasound 09/28/16 Signed Impressions: Service Date/Time: Wednesday, September 28, 2016 19:15 - CONCLUSION: 1. Occlusive superficial thrombosis in the left cephalic vein near the antecubital fossa. No deep venous thrombosis. Sumit Bourgeois MD Renal Ultrasound 08/28/16 Signed Impressions: Service Date/Time: Sunday, August 28, 2016 20:03 - CONCLUSION: Mild increased echotexture of both kidneys. Baldev Vu MD Lumbar Puncture Fluoroscopy 08/17/16 0000 Signed Impressions: Service Date/Time: Wednesday, August 17, 2016 12:26 - CONCLUSION: Uncomplicated fluoroscopically guided lumbar puncture. Vishal Beckford Jr., MD Brain MRI 08/17/16 0000 Signed Impressions: Service Date/Time: Wednesday, August 17, 2016 13:28 - CONCLUSION: Remote long-standing areas of abnormality in the brainstem and middle cerebellar peduncle consistent with remote infarcts or contusion. No acute intracranial abnormality. Chacho Bright MD Head CT 08/16/16 0000 Signed Impressions: Service Date/Time: Tuesday, August 16, 2016 09:55 - CONCLUSION: Chronic ischemic changes left frontal lobe possibly from evidence of previous ventriculostomy placement, unchanged. No acute intracranial abnormality. Gen Potter MD Modified Barium Swallow 08/15/16 0000 Signed Impressions: Service Date/Time: Monday, August 15, 2016 00:00 - CONCLUSION: See report above and speech pathology report Chacho Bright MD PE at Discharge GENERAL: Well-developed cachectic and contracted male patient in NAD. Awake and alert. Nodding appropriately. SKIN: Warm and dry. No rash. HEENT: Normocephalic. Atraumatic. Pupils equal and round. No scleral icterus. No injection or drainage. No nasal bleeding or discharge. Mucous membranes pink and moist. NECK: Supple. Trachea midline. CARDIOVASCULAR: Regular rate and rhythm. S1, S2 noted. No murmur appreciated. RESPIRATORY: No accessory muscle use. Course and rhonchi throughout lung lawson. Breath sounds equal bilaterally. GASTROINTESTINAL: Abdomen soft, non-tender, nondistended. Normoactive bowel sounds x4. No guarding. PEG tube noted, no erythema or drainage from site, c/d/ i. MUSCULOSKELETAL: No obvious deformities. Extremities without clubbing, cyanosis , or edema. Hospital Course Patient initially presented with on 08-13-16 with decreased oral intake and sepsis with UTI. Patient has a history of Neuro-Behcet, history of frontal lobe CVA, encephalopathy and history of meningitis. Aphasic at baseline. EEG showed mild to moderate slowing at times of various depending on the epoch, there was no epileptic activity seen. CT head showed chronic ischemia changes left frontal lobe. PT/OT worked with patient throughout hospitalization. Patient has developed blurred vision secondary to neuro-Behcet's syndrome. Ophthalmology consulted at one point and indicates that his visual problems are secondary to neuro-Behcet' s syndrome, recommending immunosuppressive and steroids. Was placed on Imuran and prednisone. Patient also has urinary retention secondary to neuro Behcet's syndrome, chronic FC placement. Last changed 08/04/17. Patient with decreased oral intake and dysphagia on initial presentation. Speech therapy evaluated patient. S/P barium swallow. Patient with severe dysphagia. GI was consulted and PEG tube was placed. Dietary consulted for bolus feeding recommendations. Throughout hospitalization patient had episodes of fever related to aspiration pneumonia or UTI. Has been on antibiotics throughout hospital stay. Patient also developed a coccyx decubitus ulcer for which wound care was following and specialty bed was ordered. Patient was placed on Prozac for mood disorder, was evaluated by psychiatry and made recommendations. Seroquel has been held due to possible neuroleptic malignant syndrome. Patient has been stable without fevers upon discharge. Does have a history of diabetes with controlled glucose. Pt Condition on Discharge: Stable Discharge Disposition: Discharge Home Discharge Time: > 30 minutes Discharge Instructions DIET: Follow Instructions for: On Tube Feeding Activities you can perform: Regular-No Restrictions Follow up Referrals: PCP Follow-up - 1 Week New Medications: Hospital Bed - Manual (Hospital Bed - Manual) 1 Ea Ea EA .XX DIRECTED, #1 Wheelchair (Wheelchair) 1 Mis Mis EA .XX DIRECTED, #1 0 Refills HIGHBACK wheelchair Acetaminophen Supp (Acephen Supp) 650 Mg Supp 650 MG RECTAL Q6H PRN for TEMP >/= 101 for 30 Days, #120 SUPP Arginine/Glutamine/Calcium Bmb (Maury Packet) 7 Gram-7 Gram-1.5 Gram Powd.pack 1 PACK G-TUBE BID for supplement for 30 Days, #60 PACK Atorvastatin (Lipitor) 40 Mg Tab 40 MG PO HS for Cholesterol Management, #30 TAB Azathioprine (Azathioprine) 50 Mg Tab 50 MG PEG BID@06,18 for immunosuppressive for 30 Days, #60 TAB Hazardous agent use appropriate precautions for handling and disposal. Enoxaparin Inj (Lovenox Inj) 30 Mg/0.3 Ml Syr 30 MG SQ Q24H for Blood Clot Prevention, #30 INJECTION Enoxaparin Inj (Lovenox Inj) 40 Mg/0.4 Ml Syr 40 MG SQ Q24H for prophylaxis for 30 Days, #30 INJECTION Famotidine (Famotidine) 20 Mg Tab 20 MG PO BID for GERD, #30 TAB Fluoxetine (Prozac) 10 Mg Cap 10 MG PO DAILY for depression, #30 CAP Fluoxetine Liq (Fluoxetine Liq) 20 mg/5 ML Soln 40 MG PEG DAILY for depression for 30 Days, #30 ML Hyoscyamine Liq Drops (Hyosyne Liq Drops) 0.125 Mg/Ml Soln 0.125 MG PEG DAILY PRN for secretions for 30 Days, #30 TAB Ibuprofen (Childrens Advil) 100 Mg/5 Ml Lynda 200 MG PEG Q6H PRN for TEMP >/= 101 for 30 Days, #120 TAB Lactobacillus Acidophilus (Acidophilus/l-Sporogenes) 35 Million Cell-25 Million Cell Tab 1 TAB PEG Q12HR for probiotic for 30 Days, #60 TAB Lansoprazole ODT (Prevacid Solutab ODT) 30 Mg Tab 30 MG PEG BID for GI for 30 Days, #60 TAB Mix with 4 ml water before giving via tube. Ondansetron Liq (Ondansetron Liq) 4 Mg/5 Ml Soln 4 MG PEG Q6H PRN for NAUSEA OR VOMITING for 30 Days, #600 ML Polyethylene Glycol 3350 Powder (Polyethylene Glycol 3350 Powder) 17 Gram Pow 17 GM PEG DAILY PRN for CONSTIPATION for 30 Days, #30 PACK Polyvinyl Alcohol Opth Drops (Artificial Tears Opth Drops) 1.4% Soln 1 DROP EACH EYE Q4H PRN for dryness, itching for 30 Days, #1 BOTTLE Prednisone (Prednisone) 20 Mg Tab 30 MG PEG DAILY for neuro bechets for 30 Days, #45 TAB Quetiapine (Seroquel) 25 Mg Tab 50 MG PO HS for depression for 30 Days, #60 TAB Senna Liq (Senna Liq) 176 Mg/5 Ml Syp 8.8 MG PEG DAILY for constipation for 30 Days, #30 TAB [Eucerin Cream] () 120 APPLIC/120 GM CR 1 APPLIC TOPICAL BID PRN for dry skin for 30 Days, #1 BOTTLE [Metoclopramide Liq] () 10 MG/10 ML SYRP 5 MG PEG ACHS for GI for 30 Days, #600 ML [Padimate O] () 45 APPLIC/4.5 GM STK 1 APPLIC TOPICAL UNSCH PRN for dry lips for 30 Days, #10 Dotty Burch Aug 02, 2017 11:08
[2017-08-02 12:00] VITALS: BP 161/72; PULSE 102; RESP 22; TEMP 98.4; O2SAT 95
[2017-08-02 19:45] VITALS: PULSE 88
[2017-08-02 20:00] VITALS: BP 110/78; PULSE 87; RESP 20; TEMP 96.9; O2SAT 99
[2017-08-02] MEDS: QUEtiapine FUMARATE 25 MG TAB PO SCH (21:40)
[2017-08-03] VITALS (8 sets, daily range): BP systolic 94–126; BP diastolic 60–69; PULSE 99–146; RESP 16–28; TEMP 98.9–101.7; O2SAT 92–98
--- NOTE | 2017-08-03 02:06 | RADRPT ---
EXAM DATE/TIME: 08/03/2017 01:44 [facility] COMPARISON: CHEST SINGLE AP, July 19, 2017, 13:15. CHEST SINGLE AP, July 24, 2017, 11:03. INDICATIONS : Cough, chest congestion MEDICAL HISTORY : Hypertension. CVA. Migraines SURGICAL HISTORY : feeding tube ENCOUNTER: Subsequent ACUITY: >1 year PAIN SCORE: Non-responsive. LOCATION: Bilateral chest FINDINGS: Portable AP views of the chest demonstrate a normal-sized cardiac silhouette. Lungs are underinflated with mild atelectasis at the right base. There is subtle airspace opacity in the right midlung zone. No pleural effusion or pneumothorax is identified. Bones and soft tissues demonstrate no acute findi ng. There is an old healed left mid clavicle fracture. CONCLUSION: Mild airspace opacity in the right midlung zone suspicious for an infectious process given the clinic al history. Suggest followup imaging following appropriate therapy to confirm resolution. Josafat Garrido MD on August 03, 2017 at 2:03 Board Certified Radiologist. This report was verified electronically.
[2017-08-03] MEDS: ACETAMINOPHEN 650 MG SUPP RECTAL PRN (04:27)
[2017-08-03 04:58] LABS: BASOPHIL # 0.1 TH/MM3 (0-0.2); BASOPHIL % 0.8 % (0.0-2.0); EOSINOPHIL % 0.1 % (0.0-4.0); HEMATOCRIT 39.2 % (39.0-51.0); HEMOGLOBIN 12.9 GM/DL (13.0-17.0); LYMPH % 6.2 % (9.0-44.0); LYMPHOCYTE # 0.8 TH/MM3 (1.0-4.8); MEAN CELL VOLUME 94.4 FL (80.0-100.0); MEAN CORPUSCULAR HGB CONC 32.8 % (32.0-36.0); MEAN PLATELET VOLUME 8.1 FL (7.0-11.0); MONO % 1.6 % (0.0-8.0); MONOCYTE # 0.2 TH/MM3 (0-0.9); NEUT % 91.3 % (16.0-70.0); PLATELET COUNT 313 TH/MM3 (150-450); RED BLOOD COUNT 4.15 MIL/MM3 (4.50-5.90); RED CELL DISTRIBUTION WIDTH 14.8 % (11.6-17.2); WHITE BLOOD COUNT 12.1 TH/MM3 (4.0-11.0)
[2017-08-03 05:08] LABS: CALCIUM 9.2 MG/DL (8.5-10.1)
[2017-08-03 05:09] LABS: BICARBONATE 30.2 MEQ/L (21.0-32.0)
[2017-08-03] MEDS: LACTATED RINGER'S 1000 ML INJ 1,000 ML IV SCH ×3 (05:11→21:30)
[2017-08-03 05:12] LABS: CREATININE 0.84 MG/DL (0.60-1.30)
[2017-08-03] MEDS: azaTHIOprine 50 MG TAB PEG SCH ×2 (06:01→17:27)
[2017-08-03] MEDS: SENNOSIDES SYRUP 8.8 MG/5 ML CUP PEG SCH (08:18)
[2017-08-03] MEDS: predniSONE 20 MG TAB PEG SCH (08:18)
[2017-08-03] MEDS: LACTOBACILLUS ACIDOPHILUS TAB PEG SCH ×2 (08:18→21:29)
[2017-08-03] MEDS: LANSOPRAZOLE SOLUTAB 30 MG TAB PEG SCH ×2 (08:18→21:29)
[2017-08-03] MEDS: FLUoxetine HCL LIQUID 20 MG/5 ML CUP PEG SCH (08:18)
[2017-08-03] MEDS: METOCLOPRAMIDE HCL SYRUP 10 MG/10 ML UDC PEG SCH ×4 (08:19→21:29)
[2017-08-03] MEDS: ENOXAPARIN SODIUM 40 MG/0.4 ML SYRINGE SQ SCH (08:20)
--- NOTE | 2017-08-03 08:46 | HHI.IDPN ---
Subjective Subjective Remarks is a 46 AAM with Neuro Behcet's disease, difficult placement and not safe discharge so continues to reside at [facility]. Has a fever today WBC increased again Reviewed CXR and cultures Antibiotics None Got IV Ertapenem 07/23-07/28 Vancomycin and Zosyn ordered today Lines Line sites with no e.o infection Past Medical History reviewed Allergies: Uncoded Allergies: ADHESIVE TAPE (Allergy, Severe, 09/21/16) BLISTERS Objective . Vital Signs Date Time Temp Pulse Resp B/P (MAP) Pulse Ox O2 Delivery O2 Flow Rate FiO2 08/03/17 05:30 99.3 126 20 106/67 (80) 96 08/03/17 04:00 101.7 139 26 118/69 (85) 94 08/03/17 00:00 92 Nasal Cannula 4.00 08/03/17 00:00 98.9 146 28 94/66 (75) 92 08/02/17 21:47 Nasal Cannula 2.00 08/02/17 20:00 Nasal Cannula 2.00 08/02/17 20:00 96.9 87 20 110/78 (89) 99 08/02/17 19:45 88 08/02/17 12:00 98.4 102 22 161/72 (101) 95 08/02/17 09:43 93 08/03/17 08/03/17 08/04/17 15:00 23:00 07:00 Intake Total 399 ml Balance 399 ml IV Total 399 ml . Laboratory Tests Test 08/03/17 04:50 White Blood Count 12.1 TH/MM3 Red Blood Count 4.15 MIL/MM3 Hemoglobin 12.9 GM/DL Hematocrit 39.2 % Mean Corpuscular Volume 94.4 FL Mean Corpuscular Hemoglobin 31.0 PG Mean Corpuscular Hemoglobin Concent 32.8 % Red Cell Distribution Width 14.8 % Platelet Count 313 TH/MM3 Mean Platelet Volume 8.1 FL Neutrophils (%) (Auto) 91.3 % Lymphocytes (%) (Auto) 6.2 % Monocytes (%) (Auto) 1.6 % Eosinophils (%) (Auto) 0.1 % Basophils (%) (Auto) 0.8 % Neutrophils # (Auto) 11.0 TH/MM3 Lymphocytes # (Auto) 0.8 TH/MM3 Monocytes # (Auto) 0.2 TH/MM3 Eosinophils # (Auto) 0.0 TH/MM3 Basophils # (Auto) 0.1 TH/MM3 CBC Comment DIFF FINAL Differential Comment Laboratory Tests Test 08/03/17 04:50 Blood Urea Nitrogen 27 MG/DL Creatinine 0.84 MG/DL Random Glucose 88 MG/DL Calcium Level 9.2 MG/DL Sodium Level 140 MEQ/L Potassium Level 3.4 MEQ/L Chloride Level 106 MEQ/L Carbon Dioxide Level 30.2 MEQ/L Anion Gap 4 MEQ/L Estimat Glomerular Filtration Rate 120 ML/MIN Lactic Acid Level 1.5 mmol/L Imaging Last Impressions Chest X-Ray 10/11/16 0000 Signed Impressions: Service Date/Time: Tuesday, October 11, 2016 21:23 - CONCLUSION: 1. Bilateral hazy airspace disease. Differential diagnosis includes edema and aspiration. Sumit Bourgeois MD Hip Aspiration/Injection 10/08/16 0000 Signed Impressions: Service Date/Time: Tuesday, October 11, 2016 13:41 - CONCLUSION: Uncomplicated aspiration as above. Minimal fluid on the right. No identifiable fluid on the left Clayton Max MD Lower Extremity Ultrasound 10/06/16 0000 Signed Impressions: Service Date/Time: September 17:29 - CONCLUSION: Normal examination. Josafat Meyer MD CT Angiography 10/06/16 0000 Signed Impressions: Service Date/Time: September 20:31 - CONCLUSION: Minimal right upper lobe infiltrate and basilar atelectasis. No evidence of pulmonary embolism.. Josafat Meyer MD Abdomen/Pelvis CT 10/06/16 0000 Signed Impressions: Service Date/Time: September 20:31 - CONCLUSION: No evidence of pelvic abscess. Josafat Meyer MD Upper Extremity Ultrasound 09/28/16 0000 Signed Impressions: Service Date/Time: Wednesday, September 28, 2016 19:15 - CONCLUSION: 1. Occlusive superficial thrombosis in the left cephalic vein near the antecubital fossa. No deep venous thrombosis. Sumit Bourgeois MD Renal Ultrasound 08/28/16 0000 Signed Impressions: Service Date/Time: Sunday, August 28, 2016 20:03 - CONCLUSION: Mild increased echotexture of both kidneys. Baldev Vu MD Lumbar Puncture Fluoroscopy 08/17/16 0000 Signed Impressions: Service Date/Time: Wednesday, August 17, 2016 12:26 - CONCLUSION: Uncomplicated fluoroscopically guided lumbar puncture. iVshal Beckford Jr., MD Brain MRI 08/17/16 Signed Impressions: Service Date/Time: Wednesday, August 17, 2016 13:28 - CONCLUSION: Remote long-standing areas of abnormality in the brainstem and middle cerebellar peduncle consistent with remote infarcts or contusion. No acute intracranial abnormality. Chacho Bright MD Abdomen X-Ray 08/17/16 Signed Impressions: Service Date/Time: Wednesday, August 17, 2016 13:02 - CONCLUSION: No evidence of obstruction. No MRI incompatible foreign body is identified. Chacho Bright MD Head CT 08/16/16 Signed Impressions: Service Date/Time: Tuesday, August 16, 2016 09:55 - CONCLUSION: Chronic ischemic changes left frontal lobe possibly from evidence of previous ventriculostomy placement, unchanged. No acute intracranial abnormality. Gen Potter MD Modified Barium Swallow 08/15/16 Signed Impressions: Service Date/Time: Monday, August 15, 2016 00:00 - CONCLUSION: See report above and speech pathology report Chacho Bright MD Physical Exam GENERAL: Awake , chronically ill appearing patient. Tachypneic and tachycardic SKIN: Old scars on arms. EYES: Pupils equal round and reactive. Extraocular motions intact. No scleral icterus. No injection or drainage. ENT: moist mucosae drooling. Significant secretions CARDIOVASCULAR: HS audible. No murmur. RESPIRATORY:. Breath sounds equal bilaterally. Coarse rhonchi equal GASTROINTESTINAL: Abdomen soft, non-tender, minimally distended. : maurice in place with clear yellow urine MUSCULOSKELETAL: Extremities without clubbing, cyanosis, or edema. Wasting and contractures. Assessment & Plan Diagnosis: (1) Neurologic type Behcet's syndrome ICD Codes: M35.2 - Behcet's disease Status: Chronic (2) Fever ICD Codes: R50.9 - Fever, unspecified Status: Acute Plan: Sputum culture from 07/21 did grow ESBL Klebsiella- Patient with fever, increased WBC and also reviewed CXR Will stop the IV Vancomycin and Zosyn Start Invanz 1 g IV daily in view of ESBL organism in sputum (3) Leucocytosis ICD Codes: D72.829 - Elevated white blood cell count, unspecified Status: Acute Plan: Reviewed CBC Follow closely Remarks Rachel Casarez MD Aug 03, 2017 08:46
[2017-08-03] MEDS: JUVEN POWDER 1 PACK G-TUBE SCH ×2 (09:00→21:00)
[2017-08-03] MEDS: ERTAPENEM INJ 1,000 MG in SODIUM CHLORIDE 0.9% INJ 100 ML IV SCH (10:20)
--- NOTE | 2017-08-03 12:41 | HHI.PR ---
Subjective Remarks Follow-up neuro-Behcet's syndrome. Patient seen and examined, lying in bed comfortably sleeping. Awakens to voice. Patient did spike a temperature overnight, 101.7, was initially started on vancomycin and Zosyn. Infectious diseases follow patient this morning and changed him to Invanz IV. Patient's fever has normalized. No other changes. Denies any pain. Objective Vitals Vital Signs Date Time Temp Pulse Resp B/P (MAP) Pulse Ox O2 Delivery O2 Flow Rate FiO2 08/03/17 07:50 99.2 109 16 113/60 (77) 98 08/03/17 05:30 99.3 126 20 106/67 (80) 96 08/03/17 04:00 101.7 139 26 118/69 (85) 94 08/03/17 00:00 92 Nasal Cannula 4.00 08/03/17 00:00 98.9 146 28 94/66 (75) 92 08/02/17 21:47 Nasal Cannula 2.00 08/02/17 20:00 Nasal Cannula 2.00 08/02/17 20:00 96.9 87 20 110/78 (89) 99 08/02/17 19:45 88 I/O 08/02/17 08/02/17 08/02/17 08/03/17 08/03/17 08/03/17 07:00 15:00 23:00 07:00 15:00 23:00 Intake Total 640 ml 1500 ml 640 ml 399 ml Output Total 600 ml 374 ml 427 ml Balance 40 ml -374 ml 1500 ml 213 ml 399 ml Intake Oral 0 ml 0 ml IV Total 100 ml 399 ml Tube Feeding 240 ml 720 ml 240 ml Tube Irrigant 200 ml 300 ml Other 200 ml 780 ml Output Urine Total 600 ml 374 ml 425 ml Emesis 2 ml # Bowel Movements 2 0 2 Result Diagram: 08/03/17 0450 08/03/17 0450 Imaging Last Impressions Chest X-Ray 08/03/17 0000 Signed Impressions: Service Date/Time: July 01:44 - CONCLUSION: Mild airspace opacity in the right midlung zone suspicious for an infectious process given the clinical history. Suggest followup imaging following appropriate therapy to confirm resolution. Josafat Garrido MD Abdomen X-Ray 07/25/17 0000 Signed Impressions: Service Date/Time: Tuesday, July 25, 2017 13:11 - CONCLUSION: 1. Normal bowel gas pattern. 2. Percutaneous gastrostomy tube. Gen Potter MD Hip Aspiration/Injection 10/08/16 0000 Signed Impressions: Service Date/Time: Tuesday, October 11, 2016 13:41 - CONCLUSION: Uncomplicated aspiration as above. Minimal fluid on the right. No identifiable fluid on the left Clayton Max MD Lower Extremity Ultrasound 10/06/16 0000 Signed Impressions: Service Date/Time: September 17:29 - CONCLUSION: Normal examination. Josafat Meyer MD CT Angiography 10/06/16 0000 Signed Impressions: Service Date/Time: September 20:31 - CONCLUSION: Minimal right upper lobe infiltrate and basilar atelectasis. No evidence of pulmonary embolism.. Josafat Meyer MD Abdomen/Pelvis CT 10/06/16 0000 Signed Impressions: Service Date/Time: September 20:31 - CONCLUSION: No evidence of pelvic abscess. Josafat Meyer MD Upper Extremity Ultrasound 09/28/16 Signed Impressions: Service Date/Time: Wednesday, September 28, 2016 19:15 - CONCLUSION: 1. Occlusive superficial thrombosis in the left cephalic vein near the antecubital fossa. No deep venous thrombosis. Sumit Bourgeois MD Renal Ultrasound 08/28/16 0000 Signed Impressions: Service Date/Time: Sunday, August 28, 2016 20:03 - CONCLUSION: Mild increased echotexture of both kidneys. Baldev Vu MD Lumbar Puncture Fluoroscopy 08/17/16 0000 Signed Impressions: Service Date/Time: Wednesday, August 17, 2016 12:26 - CONCLUSION: Uncomplicated fluoroscopically guided lumbar puncture. Vishal Beckford Jr., MD Brain MRI 08/17/16 0000 Signed Impressions: Service Date/Time: Wednesday, August 17, 2016 13:28 - CONCLUSION: Remote long-standing areas of abnormality in the brainstem and middle cerebellar peduncle consistent with remote infarcts or contusion. No acute intracranial abnormality. Chacho Bright MD Head CT 08/16/16 0000 Signed Impressions: Service Date/Time: Tuesday, August 16, 2016 09:55 - CONCLUSION: Chronic ischemic changes left frontal lobe possibly from evidence of previous ventriculostomy placement, unchanged. No acute intracranial abnormality. Gen Potter MD Modified Barium Swallow 08/15/16 0000 Signed Impressions: Service Date/Time: Monday, August 15, 2016 00:00 - CONCLUSION: See report above and speech pathology report Chacho Bright MD Objective Remarks GENERAL: Well-developed cachectic and contracted male patient in NAD. Awake and alert. Nodding appropriately. SKIN: Warm and dry. No rash. HEENT: Normocephalic. Atraumatic. Pupils equal and round. No scleral icterus. No injection or drainage. No nasal bleeding or discharge. Mucous membranes pink and moist. NECK: Supple. Trachea midline. CARDIOVASCULAR: Regular rate and rhythm. S1, S2 noted. No murmur appreciated. RESPIRATORY: No accessory muscle use. Course and rhonchi throughout lung lawson. Breath sounds equal bilaterally. GASTROINTESTINAL: Abdomen soft, non-tender, nondistended. Normoactive bowel sounds x4. No guarding. PEG tube noted, no erythema or drainage from site, c/d/ i. MUSCULOSKELETAL: No obvious deformities. Extremities without clubbing, cyanosis , or edema. 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 - Behcet's disease Status: Chronic (2) Hospital acquired PNA ICD Code: J18.9 - Pneumonia, unspecified organism Status: Resolved (3) Sepsis ICD Code: A41.9 - Sepsis, unspecified organism Status: Resolved (4) Encephalopathy ICD Code: G93.40 - Encephalopathy, unspecified Status: Resolved (5) GI bleed ICD Code: K92.2 - Gastrointestinal hemorrhage, unspecified Status: Resolved (6) HCAP (healthcare-associated pneumonia) ICD Code: J18.9 - Pneumonia, unspecified organism Status: Resolved (7) UTI (urinary tract infection) ICD Code: N39.0 - Urinary tract infection, site not specified Status: Resolved (8) Leucocytosis ICD Code: D72.829 - Elevated white blood cell count, unspecified Status: Acute (9) Fever ICD Code: R50.9 - Fever, unspecified Status: Acute (10) Effusion of hip joint ICD Code: M25.459 - Effusion, unspecified hip Status: Acute (11) 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 Patient was followed by neurology. Aphasic at baseline. Continue Imuran, prednisone EEG shows mild to moderate slowing at times of various depending on the epoch , there was no epileptic activity seen Continue PT/OT Palliative care still following the patient. 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 07/25/17, next time would be 08/15/17 --Decreased oral intake and dysphagia on initial presentation Speech therapy evaluated patient. S/P barium swallow. Patient with severe dysphagia. GI was consulted and PEG tube was placed. Dietary reconsulted for bolus feeding recommendations Continue bolus feeding per dietary recommendations Supraventricular tachycardia, unknown etiology. Resolved. No source has been identified, no signs of infection, patient did have tachypnea which he could've had acute distress from clearing secretions. Status post adenosine with appropriate response. Status post Cardizem IV. Discontinue Lopressor 12.5 mg twice daily due to low blood pressure. No further events noted on cardiac telemetry. Recurrent fever Chest x-ray from overnight showing mild airspace opacity in the right midlung zone suspicious for infectious process. sputum culture indicating Klebsiella pneumonia ESBL positive Discontinued vancomycin and Zosyn. Infectious disease consulted and following. Start Invanz. Continue to monitor. Coccyx decubitus. Ankle ulceration Wound care nurse is following the patient for management Patient with specialty bed Mood disorder, depression Psychiatry evaluated patient and made recommendations Prozac 40 mg daily Seroquel 50 mg at bedtime Diabetes Glucose continues to be well controlled DVT Prophylaxis: Lovenox, TEDs/SCD Discharge Planning Case management assisting. Problem Qualifiers (1) GI bleed: (2) UTI (urinary tract infection): (3) Effusion of hip joint: Dotty Pacheco Aug 03, 2017 12:41
[2017-08-03] MEDS: QUEtiapine FUMARATE 25 MG TAB PO SCH (21:29)
[2017-08-04] VITALS: BP 130/65; PULSE 139; RESP 20; TEMP 99.4; O2SAT 96
[2017-08-04 04:00] VITALS: BP 118/67; PULSE 127; RESP 24; TEMP 102.8; O2SAT 93
[2017-08-04] MEDS: azaTHIOprine 50 MG TAB PEG SCH ×2 (05:54→17:43)
[2017-08-04] MEDS: METOCLOPRAMIDE HCL SYRUP 10 MG/10 ML UDC PEG SCH ×4 (05:54→21:18)
[2017-08-04] MEDS: ACETAMINOPHEN 650 MG SUPP RECTAL PRN ×2 (05:54→15:00)
[2017-08-04 08:00] VITALS: BP 97/68; PULSE 120; RESP 18; TEMP 103.4; O2SAT 100
[2017-08-04 08:10] VITALS: O2SAT 97
[2017-08-04] MEDS: JUVEN POWDER 1 PACK G-TUBE SCH ×2 (09:00→21:00)
--- NOTE | 2017-08-04 09:11 | HHI.PR ---
Subjective Remarks Follow-up neuro-Behcet's syndrome and fever. Patient seen and examined, lying in bed in no apparent distress. Temp of 103. Continued IV fluids and IV antibiotics. Infectious disease following. Patient denies any pain. Continue cardiac telemetry. No continued tachycardia SVT. Objective Vitals Vital Signs Date Time Temp Pulse Resp B/P (MAP) Pulse Ox O2 Delivery O2 Flow Rate FiO2 08/04/17 04:00 102.8 127 24 118/67 (84) 93 08/04/17 00:00 99.4 139 20 130/65 (86) 96 08/03/17 23:24 Nasal Cannula 2.00 08/03/17 23:18 Nasal Cannula 08/03/17 20:00 99.8 118 20 126/63 (84) 98 08/03/17 18:34 98 2.00 08/03/17 16:00 99 I/O 08/03/17 08/03/17 08/03/17 08/04/17 08/04/17 08/04/17 07:00 15:00 23:00 07:00 15:00 23:00 Intake Total 640 ml 399 ml 570 ml 0 ml Output Total 427 ml 350 ml 550 ml Balance 213 ml 399 ml 220 ml -550 ml Intake Oral 0 ml 0 ml IV Total 100 ml 399 ml 200 ml Tube Feeding 240 ml 240 ml Tube Irrigant 300 ml 130 ml Output Urine Total 425 ml 350 ml 550 ml Emesis 2 ml # Bowel Movements 2 1 2 Result Diagram: 08/03/17 0450 08/03/17 0450 Imaging Last Impressions Chest X-Ray 08/03/17 0000 Signed Impressions: Service Date/Time: July 01:44 - CONCLUSION: Mild airspace opacity in the right midlung zone suspicious for an infectious process given the clinical history. Suggest followup imaging following appropriate therapy to confirm resolution. Josafat Garrido MD Abdomen X-Ray 07/25/17 0000 Signed Impressions: Service Date/Time: Tuesday, July 25, 2017 13:11 - CONCLUSION: 1. Normal bowel gas pattern. 2. Percutaneous gastrostomy tube. Gen Potter MD Hip Aspiration/Injection 10/08/16 0000 Signed Impressions: Service Date/Time: Tuesday, October 11, 2016 13:41 - CONCLUSION: Uncomplicated aspiration as above. Minimal fluid on the right. No identifiable fluid on the left Clayton Max MD Lower Extremity Ultrasound 10/06/16 Signed Impressions: Service Date/Time: September 17:29 - CONCLUSION: Normal examination. Josafat Meyer MD CT Angiography 10/06/16 Signed Impressions: Service Date/Time: September 20:31 - CONCLUSION: Minimal right upper lobe infiltrate and basilar atelectasis. No evidence of pulmonary embolism.. Josafat Meyer MD Abdomen/Pelvis CT 10/06/16 Signed Impressions: Service Date/Time: September 20:31 - CONCLUSION: No evidence of pelvic abscess. Josafat Meyer MD Upper Extremity Ultrasound 09/28/16 Signed Impressions: Service Date/Time: Wednesday, September 28, 2016 19:15 - CONCLUSION: 1. Occlusive superficial thrombosis in the left cephalic vein near the antecubital fossa. No deep venous thrombosis. Sumit Bourgeois MD Renal Ultrasound 08/28/16 Signed Impressions: Service Date/Time: Sunday, August 28, 2016 20:03 - CONCLUSION: Mild increased echotexture of both kidneys. Baldev Vu MD Lumbar Puncture Fluoroscopy 08/17/16 0000 Signed Impressions: Service Date/Time: Wednesday, August 17, 2016 12:26 - CONCLUSION: Uncomplicated fluoroscopically guided lumbar puncture. Vishal Beckford Jr., MD Brain MRI 08/17/16 0000 Signed Impressions: Service Date/Time: Wednesday, August 17, 2016 13:28 - CONCLUSION: Remote long-standing areas of abnormality in the brainstem and middle cerebellar peduncle consistent with remote infarcts or contusion. No acute intracranial abnormality. Chacho Bright MD Head CT 08/16/16 0000 Signed Impressions: Service Date/Time: Tuesday, August 16, 2016 09:55 - CONCLUSION: Chronic ischemic changes left frontal lobe possibly from evidence of previous ventriculostomy placement, unchanged. No acute intracranial abnormality. Gen Potter MD Modified Barium Swallow 08/15/16 0000 Signed Impressions: Service Date/Time: Monday, August 15, 2016 00:00 - CONCLUSION: See report above and speech pathology report Chacho Bright MD Objective Remarks GENERAL: Well-developed cachectic and contracted male patient in NAD. Awake and alert. Nodding appropriately. SKIN: Warm and dry. No rash. HEENT: Normocephalic. Atraumatic. Pupils equal and round. No scleral icterus. No injection or drainage. No nasal bleeding or discharge. Mucous membranes pink and moist. NECK: Supple. Trachea midline. CARDIOVASCULAR: Regular rate and rhythm. S1, S2 noted. No murmur appreciated. RESPIRATORY: No accessory muscle use. Course and rhonchi throughout lung lawson. Breath sounds equal bilaterally. GASTROINTESTINAL: Abdomen soft, non-tender, nondistended. Normoactive bowel sounds x4. No guarding. PEG tube noted, no erythema or drainage from site, c/d/ i. MUSCULOSKELETAL: No obvious deformities. Extremities without clubbing, cyanosis , or edema. 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's disease Status: Chronic (2) Hospital acquired PNA ICD Code: J18.9 - Pneumonia, unspecified organism Status: Resolved (3) Sepsis ICD Code: A41.9 - Sepsis, unspecified organism Status: Resolved (4) Encephalopathy ICD Code: G93.40 - Encephalopathy, unspecified Status: Resolved (5) GI bleed ICD Code: K92.2 - Gastrointestinal hemorrhage, unspecified Status: Resolved (6) HCAP (healthcare-associated pneumonia) ICD Code: J18.9 - Pneumonia, unspecified organism Status: Resolved (7) UTI (urinary tract infection) ICD Code: N39.0 - Urinary tract infection, site not specified Status: Resolved (8) Leucocytosis ICD Code: D72.829 - Elevated white blood cell count, unspecified Status: Acute (9) Fever ICD Code: R50.9 - Fever, unspecified Status: Acute (10) Effusion of hip joint ICD Code: M25.459 - Effusion, unspecified hip Status: Acute (11) 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 Jose culture again. ID following. On IV Invanz. Chest x-ray from overnight showing mild airspace opacity in the right midlung zone suspicious for infectious process. Sputum culture indicating Klebsiella pneumonia ESBL positive. Recheck sputum. Replace FC and recheck UA. Follow. Blood cultures drawn and pending. Follow. Given 1 L NS Bolus. Continue IVF. Neuro-Behcet, history of frontal lobe CVA, encephalopathy, history of meningitis , Blurred vision/double vision, urinary retention, chronic No new changes on imaging. Patient was followed by neurology. Aphasic at baseline. Continue Imuran, prednisone EEG shows mild to moderate slowing at times of various depending on the epoch , there was no epileptic activity seen Continue PT/OT Palliative care still following the patient. 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 07/25/17, next time would be 08/15/17 --Decreased oral intake and dysphagia on initial presentation Speech therapy evaluated patient. S/P barium swallow. Patient with severe dysphagia. GI was consulted and PEG tube was placed. Dietary reconsulted for bolus feeding recommendations Continue bolus feeding per dietary recommendations Supraventricular tachycardia, unknown etiology. Resolved. No source has been identified, no signs of infection, patient did have tachypnea which he could've had acute distress from clearing secretions. Status post adenosine with appropriate response. Status post Cardizem IV. Discontinue Lopressor 12.5 mg twice daily due to low blood pressure. No further events noted on cardiac telemetry. Coccyx decubitus. Ankle ulceration Wound care nurse is following the patient for management Patient with specialty bed Mood disorder, depression Psychiatry evaluated patient and made recommendations Prozac 40 mg daily Seroquel 50 mg at bedtime Diabetes Glucose continues to be well controlled DVT Prophylaxis: Lovenox, TEDs/SCD Discharge Planning Case management assisting. Problem Qualifiers (1) GI bleed: (2) UTI (urinary tract infection): (3) Effusion of hip joint: Dotty Pacheco Aug 04, 2017 09:11
[2017-08-04] MEDS: ENOXAPARIN SODIUM 40 MG/0.4 ML SYRINGE SQ SCH (09:37)
[2017-08-04] MEDS: SENNOSIDES SYRUP 8.8 MG/5 ML CUP PEG SCH (09:40)
[2017-08-04] MEDS: FLUoxetine HCL LIQUID 20 MG/5 ML CUP PEG SCH (09:40)
[2017-08-04] MEDS: LANSOPRAZOLE SOLUTAB 30 MG TAB PEG SCH ×2 (09:40→21:18)
[2017-08-04] MEDS: predniSONE 20 MG TAB PEG SCH (09:41)
[2017-08-04] MEDS: LACTOBACILLUS ACIDOPHILUS TAB PEG SCH ×2 (09:41→21:17)
[2017-08-04 09:50] LABS: AUTOMATED NEUTROPHIL # 13.8 TH/MM3 (1.8-7.7); BASOPHIL # 0.1 TH/MM3 (0-0.2); BASOPHIL % 0.8 % (0.0-2.0); HEMATOCRIT 37.7 % (39.0-51.0); HEMOGLOBIN 12.1 GM/DL (13.0-17.0); LYMPH % 7.2 % (9.0-44.0); LYMPHOCYTE # 1.1 TH/MM3 (1.0-4.8); MEAN CELL VOLUME 95.1 FL (80.0-100.0); MEAN CORPUSCULAR HEMOGLOBIN 30.5 PG (27.0-34.0); MEAN CORPUSCULAR HGB CONC 32.1 % (32.0-36.0); MEAN PLATELET VOLUME 8.7 FL (7.0-11.0); MONOCYTE # 0.2 TH/MM3 (0-0.9); PLATELET COUNT 297 TH/MM3 (150-450); RED BLOOD COUNT 3.97 MIL/MM3 (4.50-5.90); RED CELL DISTRIBUTION WIDTH 15.7 % (11.6-17.2); WHITE BLOOD COUNT 15.1 TH/MM3 (4.0-11.0)
[2017-08-04 10:00] LABS: CHLORIDE 103 MEQ/L (98-107); SODIUM (NA) 138 MEQ/L (136-145)
--- NOTE | 2017-08-04 10:01 | EKG ---
Date Performed: 08/03/2017 Time Performed: 04:45:11 PTAGE: 47 years EKG: SINUS TACHYCARDIA NONSPECIFIC T-WAVE ABNORMALITY ABNORMAL RHYTHM ECG Compared to PREVIOUS TRACING , sinus tachycardia has replaced SVT. PREVIOUS TRACIN07/30/2017 02.11 DOCTOR: Collin Ureña Interpretating Date/Time 08/04/2017 10:00:16
[2017-08-04 10:04] LABS: ALBUMIN 2.9 GM/DL (3.4-5.0); CALCIUM 9.1 MG/DL (8.5-10.1); GLUCOSE,RANDOM 100 MG/DL (74-106); MAGNESIUM 2.2 MG/DL (1.5-2.5)
[2017-08-04 10:18] LABS: ALKALINE PHOSPHATASE 73 U/L (45-117); ALT (GPT) 20 U/L (12-78); AST (GOT) 10 U/L (15-37); BLOOD UREA NITROGEN 16 MG/DL (7-18); GLOMERULAR FILTRATION RATE 79 ML/MIN (>89); TOTAL BILIRUBIN ADULT 0.7 MG/DL (0.2-1.0); TOTAL PROTEIN 7.5 GM/DL (6.4-8.2)
[2017-08-04] MEDS: LACTATED RINGER'S 1000 ML INJ 1,000 ML IV SCH (11:11)
[2017-08-04] MEDS: ERTAPENEM INJ 1,000 MG in SODIUM CHLORIDE 0.9% INJ 100 ML IV SCH (11:12)
[2017-08-04 12:00] VITALS: BP 92/59; PULSE 135; RESP 19; TEMP 103; O2SAT 97
[2017-08-04] MEDS: VANCOMYCIN INJ 1,000 MG in SODIUM CHLOR 0.9% 250 ML INJ 250 ML IV SCH (12:00)
--- NOTE | 2017-08-04 12:14 | HHI.IDPN ---
Subjective Subjective Remarks is a 46 AAM with Neuro Behcet's disease, difficult placement and not safe discharge so continues to reside at [facility]. High grade fevers=- gertrude[phoretic WBC increased again Reviewed CXR and cultures Antibiotics None Got IV Ertapenem 07/23-07/28 Vancomycin and Zosyn ordered today Lines Line sites with no e.o infection Past Medical History reviewed Allergies: Uncoded Allergies: ADHESIVE TAPE (Allergy, Severe, 09/21/16) BLISTERS Objective . Vital Signs Date Time Temp Pulse Resp B/P (MAP) Pulse Ox O2 Delivery O2 Flow Rate FiO2 08/04/17 11:39 Nasal Cannula 2.00 08/04/17 08:00 103.4 120 18 97/68 (78) 100 08/04/17 04:00 102.8 127 24 118/67 (84) 93 08/04/17 00:00 99.4 139 20 130/65 (86) 96 08/03/17 23:24 Nasal Cannula 2.00 08/03/17 23:18 Nasal Cannula 08/03/17 20:00 99.8 118 20 126/63 (84) 98 08/03/17 18:34 98 2.00 08/03/17 16:00 99 . Laboratory Tests Test 08/03/17 04:50 08/04/17 09:25 White Blood Count 12.1 TH/MM3 15.1 TH/MM3 Red Blood Count 4.15 MIL/MM3 3.97 MIL/MM3 Hemoglobin 12.9 GM/DL 12.1 GM/DL Hematocrit 39.2 % 37.7 % Mean Corpuscular Volume 94.4 FL 95.1 FL Mean Corpuscular Hemoglobin 31.0 PG 30.5 PG Mean Corpuscular Hemoglobin Concent 32.8 % 32.1 % Red Cell Distribution Width 14.8 % 15.7 % Platelet Count 313 TH/MM3 297 TH/MM3 Mean Platelet Volume 8.1 FL 8.7 FL Neutrophils (%) (Auto) 91.3 % 91.0 % Lymphocytes (%) (Auto) 6.2 % 7.2 % Monocytes (%) (Auto) 1.6 % 1.0 % Eosinophils (%) (Auto) 0.1 % 0.0 % Basophils (%) (Auto) 0.8 % 0.8 % Neutrophils # (Auto) 11.0 TH/MM3 13.8 TH/MM3 Lymphocytes # (Auto) 0.8 TH/MM3 1.1 TH/MM3 Monocytes # (Auto) 0.2 TH/MM3 0.2 TH/MM3 Eosinophils # (Auto) 0.0 TH/MM3 0.0 TH/MM3 Basophils # (Auto) 0.1 TH/MM3 0.1 TH/MM3 CBC Comment DIFF FINAL AUTO DIFF Differential Comment AUTO DIFF CONFIRMED Platelet Estimate NORMAL Platelet Morphology Comment NORMAL Laboratory Tests Test 08/03/17 04:50 08/04/17 09:25 Blood Urea Nitrogen 27 MG/DL 16 MG/DL Creatinine 0.84 MG/DL 1.20 MG/DL Random Glucose 88 MG/DL 100 MG/DL Calcium Level 9.2 MG/DL 9.1 MG/DL Sodium Level 140 MEQ/L 138 MEQ/L Potassium Level 3.4 MEQ/L 3.9 MEQ/L Chloride Level 106 MEQ/L 103 MEQ/L Carbon Dioxide Level 30.2 MEQ/L 27.0 MEQ/L Anion Gap 4 MEQ/L 8 MEQ/L Estimat Glomerular Filtration Rate 120 ML/MIN 79 ML/MIN Lactic Acid Level 1.5 mmol/L Total Protein 7.5 GM/DL Albumin 2.9 GM/DL Magnesium Level 2.2 MG/DL Alkaline Phosphatase 73 U/L Aspartate Amino Transf (AST/SGOT) 10 U/L Alanine Aminotransferase (ALT/SGPT) 20 U/L Total Bilirubin 0.7 MG/DL Microbiology Date/Time Source Procedure Growth Status 08/04/17 09:25 Blood Peripheral Aerobic Blood Culture Pending Received 08/04/17 09:25 Blood Peripheral Anaerobic Blood Culture Pending Received 08/04/17 09:15 Blood Peripheral Aerobic Blood Culture Pending Received 08/04/17 09:15 Blood Peripheral Anaerobic Blood Culture Pending Received Imaging Last Impressions Chest X-Ray 10/11/16 0000 Signed Impressions: Service Date/Time: Tuesday, October 11, 2016 21:23 - CONCLUSION: 1. Bilateral hazy airspace disease. Differential diagnosis includes edema and aspiration. Sumit Bourgeois MD Hip Aspiration/Injection 10/08/16 0000 Signed Impressions: Service Date/Time: Tuesday, October 11, 2016 13:41 - CONCLUSION: Uncomplicated aspiration as above. Minimal fluid on the right. No identifiable fluid on the left Clayton Max MD Lower Extremity Ultrasound 4/13/17 0000 Signed Impressions: Service Date/Time: September 17:29 - CONCLUSION: Normal examination. Josafat Meyer MD CT Angiography 10/06/16 Signed Impressions: Service Date/Time: September 20:31 - CONCLUSION: Minimal right upper lobe infiltrate and basilar atelectasis. No evidence of pulmonary embolism.. Josafat Meyer MD Abdomen/Pelvis CT 10/06/16 Signed Impressions: Service Date/Time: September 20:31 - CONCLUSION: No evidence of pelvic abscess. Josafat Meyer MD Upper Extremity Ultrasound 09/28/16 Signed Impressions: Service Date/Time: Wednesday, September 28, 2016 19:15 - CONCLUSION: 1. Occlusive superficial thrombosis in the left cephalic vein near the antecubital fossa. No deep venous thrombosis. Sumit Bourgeois MD Renal Ultrasound 08/28/16 Signed Impressions: Service Date/Time: Sunday, August 28, 2016 20:03 - CONCLUSION: Mild increased echotexture of both kidneys. Baldev Vu MD Lumbar Puncture Fluoroscopy 08/17/16 Signed Impressions: Service Date/Time: Wednesday, August 17, 2016 12:26 - CONCLUSION: Uncomplicated fluoroscopically guided lumbar puncture. Vishal Beckford Jr., MD Brain MRI 08/17/16 Signed Impressions: Service Date/Time: Wednesday, August 17, 2016 13:28 - CONCLUSION: Remote long-standing areas of abnormality in the brainstem and middle cerebellar peduncle consistent with remote infarcts or contusion. No acute intracranial abnormality. Chacho Bright MD Abdomen X-Ray 08/17/16 Signed Impressions: Service Date/Time: Wednesday, August 17, 2016 13:02 - CONCLUSION: No evidence of obstruction. No MRI incompatible foreign body is identified. Chacho Bright MD Head CT 08/16/16 0000 Signed Impressions: Service Date/Time: Tuesday, August 16, 2016 09:55 - CONCLUSION: Chronic ischemic changes left frontal lobe possibly from evidence of previous ventriculostomy placement, unchanged. No acute intracranial abnormality. Gen Potter MD Modified Barium Swallow 08/15/16 Signed Impressions: Service Date/Time: Monday, August 15, 2016 00:00 - CONCLUSION: See report above and speech pathology report Chacho Bright MD Physical Exam GENERAL: Awake , chronically ill appearing patient. Tachypneic and tachycardic SKIN: Old scars on arms. EYES: Pupils equal round and reactive. Extraocular motions intact. No scleral icterus. No injection or drainage. ENT: moist mucosae drooling. Significant secretions CARDIOVASCULAR: HS audible. No murmur. RESPIRATORY:. Breath sounds equal bilaterally. Coarse rhonchi equal GASTROINTESTINAL: Abdomen soft, non-tender, minimally distended. : maurice in place with clear yellow urine MUSCULOSKELETAL: Extremities without clubbing, cyanosis, or edema. Wasting and contractures. Assessment & Plan Diagnosis: (1) Neurologic type Behcet's syndrome ICD Codes: M35.2 - Behcet's disease Status: Chronic (2) Fever ICD Codes: R50.9 - Fever, unspecified Status: Acute Plan: Sputum culture from 07/21 did grow ESBL Klebsiella- Patient with fever, increased WBC and also reviewed CXR Continue Invanz 1 g IV daily in view of ESBL organism in sputum Check Flu test Check UAC, Blood and sputum cultures In view of fever- will add IV Vancomycin (3) Leucocytosis ICD Codes: D72.829 - Elevated white blood cell count, unspecified Status: Acute Plan: Reviewed CBC Follow closely Remarks Rachel Casarez MD Aug 04, 2017 12:14
[2017-08-04 14:59] LABS: BLOOD, URINE LARGE (NEG); GLUCOSE,URINE NEG (NEG); KETONE, URINE 40 mg/dL (NEG); NITRITE,URINE NEG (NEG); URINE LEUKOCYTE ESTERASE NEG (NEG)
[2017-08-04 15:24] LABS: BILIRUBIN, URINE NEG (NEG)
[2017-08-04 15:30] LABS: BACTERIA, URINE RARE /hpf; RBC, URINE 100-200 /hpf (0-3); URINE COLOR PINK (YELLW/STRAW); WBC, URINE 0-2 /hpf (0-5)
[2017-08-04 20:00] VITALS: BP 107/69; PULSE 93; RESP 18; TEMP 96.6; O2SAT 98
[2017-08-04] MEDS: QUEtiapine FUMARATE 25 MG TAB PO SCH (21:17)
[2017-08-05] MEDS: azaTHIOprine 50 MG TAB PEG SCH ×2 (06:00→17:38)
[2017-08-05 07:50] VITALS: BP 102/56; PULSE 90; RESP 20; TEMP 96.6; O2SAT 97
[2017-08-05 08:06] VITALS: PULSE 104
[2017-08-05] MEDS: JUVEN POWDER 1 PACK G-TUBE SCH ×2 (09:00→21:00)
[2017-08-05] MEDS: METOCLOPRAMIDE HCL SYRUP 10 MG/10 ML UDC PEG SCH ×4 (10:23→21:37)
[2017-08-05] MEDS: SENNOSIDES SYRUP 8.8 MG/5 ML CUP PEG SCH (10:23)
[2017-08-05] MEDS: ERTAPENEM INJ 1,000 MG in SODIUM CHLORIDE 0.9% INJ 100 ML IV SCH (10:23)
[2017-08-05] MEDS: FLUoxetine HCL LIQUID 20 MG/5 ML CUP PEG SCH (10:23)
[2017-08-05] MEDS: LACTOBACILLUS ACIDOPHILUS TAB PEG SCH ×2 (10:24→21:34)
[2017-08-05] MEDS: ENOXAPARIN SODIUM 40 MG/0.4 ML SYRINGE SQ SCH (10:24)
[2017-08-05] MEDS: LANSOPRAZOLE SOLUTAB 30 MG TAB PEG SCH ×2 (10:24→21:34)
[2017-08-05] MEDS: predniSONE 20 MG TAB PEG SCH (10:24)
--- NOTE | 2017-08-05 11:04 | HHI.PR ---
Subjective Remarks Follow-up neuro-Behcet's syndrome and sepsis. Patient seen and examined, lying in bed awake. Denies any pain. Heart rate in the 110's. Required metoprolol 1 overnight for tachycardia. No fever overnight. Objective Vitals Vital Signs Date Time Temp Pulse Resp B/P (MAP) Pulse Ox O2 Delivery O2 Flow Rate FiO2 08/05/17 07:50 96.6 90 20 102/56 (71) 97 08/04/17 23:30 Nasal Cannula 08/04/17 20:00 96.6 93 18 107/69 (82) 98 08/04/17 12:00 103.0 135 19 92/59 (70) 97 08/04/17 11:39 Nasal Cannula 2.00 I/O 08/04/17 08/04/17 08/04/17 08/05/17 08/05/17 08/05/17 07:00 15:00 23:00 07:00 15:00 23:00 Intake Total 0 ml 1350 ml 0 ml Output Total 550 ml 175 ml 450 ml Balance -550 ml 1350 ml -175 ml -450 ml Intake Oral 0 ml 0 ml IV Total 1350 ml Output Urine Total 550 ml 175 ml 450 ml # Bowel Movements 2 2 1 Result Diagram: 08/04/1725 08/04/17 0925 Imaging Last Impressions Chest X-Ray 08/03/17 0000 Signed Impressions: Service Date/Time: July 01:44 - CONCLUSION: Mild airspace opacity in the right midlung zone suspicious for an infectious process given the clinical history. Suggest followup imaging following appropriate therapy to confirm resolution. Josafat Garrido MD Abdomen X-Ray 07/25/17 0000 Signed Impressions: Service Date/Time: Tuesday, July 25, 2017 13:11 - CONCLUSION: 1. Normal bowel gas pattern. 2. Percutaneous gastrostomy tube. Gen Potter MD Hip Aspiration/Injection 10/08/16 0000 Signed Impressions: Service Date/Time: Tuesday, October 11, 2016 13:41 - CONCLUSION: Uncomplicated aspiration as above. Minimal fluid on the right. No identifiable fluid on the left Clayton Max MD Lower Extremity Ultrasound 10/06/16 0000 Signed Impressions: Service Date/Time: September 17:29 - CONCLUSION: Normal examination. Josafat Meyer MD CT Angiography 10/06/16 0000 Signed Impressions: Service Date/Time: September 20:31 - CONCLUSION: Minimal right upper lobe infiltrate and basilar atelectasis. No evidence of pulmonary embolism.. Josafat Meyer MD Abdomen/Pelvis CT 10/06/16 0000 Signed Impressions: Service Date/Time: September 20:31 - CONCLUSION: No evidence of pelvic abscess. Josafat Meyer MD Upper Extremity Ultrasound 09/28/16 Signed Impressions: Service Date/Time: Wednesday, September 28, 2016 19:15 - CONCLUSION: 1. Occlusive superficial thrombosis in the left cephalic vein near the antecubital fossa. No deep venous thrombosis. Sumit Bourgeois MD Renal Ultrasound 08/28/16 Signed Impressions: Service Date/Time: Sunday, August 28, 2016 20:03 - CONCLUSION: Mild increased echotexture of both kidneys. Baldev Vu MD Lumbar Puncture Fluoroscopy 08/17/16 0000 Signed Impressions: Service Date/Time: Wednesday, August 17, 2016 12:26 - CONCLUSION: Uncomplicated fluoroscopically guided lumbar puncture. Vishal Beckford Jr., MD Brain MRI 08/17/16 0000 Signed Impressions: Service Date/Time: Wednesday, August 17, 2016 13:28 - CONCLUSION: Remote long-standing areas of abnormality in the brainstem and middle cerebellar peduncle consistent with remote infarcts or contusion. No acute intracranial abnormality. Chacho Bright MD Head CT 08/16/16 0000 Signed Impressions: Service Date/Time: Tuesday, August 16, 2016 09:55 - CONCLUSION: Chronic ischemic changes left frontal lobe possibly from evidence of previous ventriculostomy placement, unchanged. No acute intracranial abnormality. Gen Potter MD Modified Barium Swallow 08/15/16 0000 Signed Impressions: Service Date/Time: Monday, August 15, 2016 00:00 - CONCLUSION: See report above and speech pathology report Chacho Bright MD Objective Remarks GENERAL: Well-developed cachectic and contracted male patient in NAD. Awake and alert. Nodding appropriately. SKIN: Warm and dry. No rash. HEENT: Normocephalic. Atraumatic. Pupils equal and round. No scleral icterus. No injection or drainage. No nasal bleeding or discharge. Mucous membranes pink and moist. NECK: Supple. Trachea midline. CARDIOVASCULAR: Regular rate and rhythm. S1, S2 noted. No murmur appreciated. RESPIRATORY: No accessory muscle use. Course and rhonchi throughout lung lawson. Breath sounds equal bilaterally. GASTROINTESTINAL: Abdomen soft, non-tender, nondistended. Normoactive bowel sounds x4. No guarding. PEG tube noted, no erythema or drainage from site, c/d/ i. MUSCULOSKELETAL: No obvious deformities. Extremities without clubbing, cyanosis , or edema. 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's disease Status: Chronic (2) Hospital acquired PNA ICD Code: J18.9 - Pneumonia, unspecified organism Status: Resolved (3) Sepsis ICD Code: A41.9 - Sepsis, unspecified organism Status: Resolved (4) Encephalopathy ICD Code: G93.40 - Encephalopathy, unspecified Status: Resolved (5) GI bleed ICD Code: K92.2 - Gastrointestinal hemorrhage, unspecified Status: Resolved (6) HCAP (healthcare-associated pneumonia) ICD Code: J18.9 - Pneumonia, unspecified organism Status: Resolved (7) UTI (urinary tract infection) ICD Code: N39.0 - Urinary tract infection, site not specified Status: Resolved (8) Leucocytosis ICD Code: D72.829 - Elevated white blood cell count, unspecified Status: Acute (9) Fever ICD Code: R50.9 - Fever, unspecified Status: Acute (10) Effusion of hip joint ICD Code: M25.459 - Effusion, unspecified hip Status: Acute (11) 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 Jose culture again. ID following. On IV Invanz. Added vancomycin. Chest x-ray showing mild airspace opacity in the right midlung zone suspicious for infectious process. Sputum culture indicating Klebsiella pneumonia ESBL positive. Recheck sputum. Replaced FC 08/04/16, urine showing and recheck UA. Follow. Blood cultures drawn no growth to date. Continue to follow. Influenza negative. Given 1 L NS Bolus. Will give another today. Continue maintenance IVF. CBC reviewed, no leukocytosis noted. Continue to follow. Will check C. difficile, diarrhea present. On multiple antibiotics. Neuro-Behcet, history of frontal lobe CVA, encephalopathy, history of meningitis , Blurred vision/double vision, urinary retention, chronic No new changes on imaging. Patient was followed by neurology. Aphasic at baseline. Continue Imuran, prednisone EEG shows mild to moderate slowing at times of various depending on the epoch , there was no epileptic activity seen Continue PT/OT Palliative care still following the patient. 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 07/25/17, next time would be 08/15/17 --Decreased oral intake and dysphagia on initial presentation Speech therapy evaluated patient. S/P barium swallow. Patient with severe dysphagia. GI was consulted and PEG tube was placed. Dietary reconsulted for bolus feeding recommendations Continue bolus feeding per dietary recommendations Supraventricular tachycardia, unknown etiology. Resolved. No source has been identified, no signs of infection, patient did have tachypnea which he could've had acute distress from clearing secretions. Status post adenosine with appropriate response. Status post Cardizem IV. Discontinue Lopressor 12.5 mg twice daily due to low blood pressure. No further events noted on cardiac telemetry. Coccyx decubitus. Ankle ulceration Wound care nurse is following the patient for management Patient with specialty bed Mood disorder, depression Psychiatry evaluated patient and made recommendations Prozac 40 mg daily Seroquel 50 mg at bedtime Diabetes Glucose continues to be well controlled DVT Prophylaxis: Lovenox, TEDs/SCD Discharge Planning Case management assisting. Problem Qualifiers (1) GI bleed: (2) UTI (urinary tract infection): (3) Effusion of hip joint: Dotty Pacheco Aug 05, 2017 11:04
[2017-08-05] MEDS: SODIUM CHLOR 0.9% 1000 ML INJ 1,000 ML IV SCH ×2 (11:26→22:40)
[2017-08-05] MEDS: VANCOMYCIN INJ 1,000 MG in SODIUM CHLOR 0.9% 250 ML INJ 250 ML IV SCH ×3 (12:43)
[2017-08-05] MEDS: HYOSCYAMINE SOLN 0.125 MG/ML 15 ML BTL PEG PRN (12:43)
[2017-08-05 14:31] VITALS: O2SAT 96
[2017-08-05 15:25] VITALS: PULSE 110
--- NOTE | 2017-08-05 17:55 | HHI.IDPN ---
Subjective Subjective Remarks is a 46 AAM with Neuro Behcet's disease, difficult placement and not safe discharge so continues to reside at [facility]. cxr + ? infiltrate fevers are better Antibiotics None Got IV Ertapenem 07/23-07/28 Vancomycin and Zosyn ordered today Lines Line sites with no e.o infection Past Medical History reviewed Allergies: Uncoded Allergies: ADHESIVE TAPE (Allergy, Severe, 09/21/16) BLISTERS Objective . Vital Signs Date Time Temp Pulse Resp B/P (MAP) Pulse Ox O2 Delivery O2 Flow Rate FiO2 08/05/17 14:31 96 Nasal Cannula 2.00 08/05/17 07:50 96.6 90 20 102/56 (71) 97 08/04/17 23:30 Nasal Cannula 08/04/17 20:00 96.6 93 18 107/69 (82) 98 08/05/17 08/05/17 08/06/17 14:59 22:59 06:59 Intake Total 1250 ml 260 ml Balance 1250 ml 260 ml IV Total 1250 ml 260 ml . Laboratory Tests Test 08/04/17 09:25 White Blood Count 15.1 TH/MM3 Red Blood Count 3.97 MIL/MM3 Hemoglobin 12.1 GM/DL Hematocrit 37.7 % Mean Corpuscular Volume 95.1 FL Mean Corpuscular Hemoglobin 30.5 PG Mean Corpuscular Hemoglobin Concent 32.1 % Red Cell Distribution Width 15.7 % Platelet Count 297 TH/MM3 Mean Platelet Volume 8.7 FL Neutrophils (%) (Auto) 91.0 % Lymphocytes (%) (Auto) 7.2 % Monocytes (%) (Auto) 1.0 % Eosinophils (%) (Auto) 0.0 % Basophils (%) (Auto) 0.8 % Neutrophils # (Auto) 13.8 TH/MM3 Lymphocytes # (Auto) 1.1 TH/MM3 Monocytes # (Auto) 0.2 TH/MM3 Eosinophils # (Auto) 0.0 TH/MM3 Basophils # (Auto) 0.1 TH/MM3 CBC Comment AUTO DIFF Differential Comment AUTO DIFF CONFIRMED Platelet Estimate NORMAL Platelet Morphology Comment NORMAL Laboratory Tests Test 08/04/17 09:25 Blood Urea Nitrogen 16 MG/DL Creatinine 1.20 MG/DL Random Glucose 100 MG/DL Total Protein 7.5 GM/DL Albumin 2.9 GM/DL Calcium Level 9.1 MG/DL Magnesium Level 2.2 MG/DL Alkaline Phosphatase 73 U/L Aspartate Amino Transf (AST/SGOT) 10 U/L Alanine Aminotransferase (ALT/SGPT) 20 U/L Total Bilirubin 0.7 MG/DL Sodium Level 138 MEQ/L Potassium Level 3.9 MEQ/L Chloride Level 103 MEQ/L Carbon Dioxide Level 27.0 MEQ/L Anion Gap 8 MEQ/L Estimat Glomerular Filtration Rate 79 ML/MIN Microbiology Date/Time Source Procedure Growth Status 08/04/17 09:25 Blood Peripheral Aerobic Blood Culture - Preliminary NO GROWTH IN 1 DAY Resulted 08/04/17 09:25 Blood Peripheral Anaerobic Blood Culture - Final QNS - SEE AEROBE REPORT Resulted 08/04/17 09:15 Blood Peripheral Aerobic Blood Culture - Preliminary NO GROWTH IN 1 DAY Resulted 08/04/17 09:15 Blood Peripheral Anaerobic Blood Culture - Preliminary NO GROWTH IN 1 DAY Resulted 08/05/17 14:30 Sputum Expectorated Sputum Gram Stain Pending Received 08/05/17 14:30 Sputum Expectorated Sputum Sputum Culture Pending Received 08/04/17 12:30 Nasal Washing Influenza Types A,B Antigen (STAR) - Final NEGATIVE FOR FLU A AND B ANTIGEN.... Complete 08/04/17 14:45 Urine Catheterized Urine Urine Culture - Preliminary NO GROWTH IN 24 HOURS. Resulted Imaging Last Impressions Chest X-Ray 10/11/16 0000 Signed Impressions: Service Date/Time: Tuesday, October 11, 2016 21:23 - CONCLUSION: 1. Bilateral hazy airspace disease. Differential diagnosis includes edema and aspiration. Sumit Bourgeois MD Hip Aspiration/Injection 10/08/16 0000 Signed Impressions: Service Date/Time: Tuesday, October 11, 2016 13:41 - CONCLUSION: Uncomplicated aspiration as above. Minimal fluid on the right. No identifiable fluid on the left Clayton Max MD Lower Extremity Ultrasound 10/06/16 0000 Signed Impressions: Service Date/Time: September 17:29 - CONCLUSION: Normal examination. Josafat Meyer MD CT Angiography 10/06/16 0000 Signed Impressions: Service Date/Time: September 20:31 - CONCLUSION: Minimal right upper lobe infiltrate and basilar atelectasis. No evidence of pulmonary embolism.. Josafat Meyer MD Abdomen/Pelvis CT 10/06/16 Signed Impressions: Service Date/Time: September 20:31 - CONCLUSION: No evidence of pelvic abscess. Josafat Meyer MD Upper Extremity Ultrasound 09/28/16 Signed Impressions: Service Date/Time: Wednesday, September 28, 2016 19:15 - CONCLUSION: 1. Occlusive superficial thrombosis in the left cephalic vein near the antecubital fossa. No deep venous thrombosis. Sumit Bourgeois MD Renal Ultrasound 08/28/16 Signed Impressions: Service Date/Time: Sunday, August 28, 2016 20:03 - CONCLUSION: Mild increased echotexture of both kidneys. Baldev Vu MD Lumbar Puncture Fluoroscopy 08/17/16 Signed Impressions: Service Date/Time: Wednesday, August 17, 2016 12:26 - CONCLUSION: Uncomplicated fluoroscopically guided lumbar puncture. Vishal Beckford Jr., MD Brain MRI 08/17/16 Signed Impressions: Service Date/Time: Wednesday, August 17, 2016 13:28 - CONCLUSION: Remote long-standing areas of abnormality in the brainstem and middle cerebellar peduncle consistent with remote infarcts or contusion. No acute intracranial abnormality. Chacho Bright MD Abdomen X-Ray 08/17/16 Signed Impressions: Service Date/Time: Wednesday, August 17, 2016 13:02 - CONCLUSION: No evidence of obstruction. No MRI incompatible foreign body is identified. Chacho Bright MD Head CT 08/16/16 Signed Impressions: Service Date/Time: Tuesday, August 16, 2016 09:55 - CONCLUSION: Chronic ischemic changes left frontal lobe possibly from evidence of previous ventriculostomy placement, unchanged. No acute intracranial abnormality. Gen Potter MD Modified Barium Swallow 08/15/16 Signed Impressions: Service Date/Time: Monday, August 15, 2016 00:00 - CONCLUSION: See report above and speech pathology report Chacho Bright MD Physical Exam GENERAL: Awake , chronically ill appearing patient. Tachypneic and tachycardic SKIN: Old scars on arms. EYES: Pupils equal round and reactive. Extraocular motions intact. No scleral icterus. No injection or drainage. ENT: moist mucosae drooling. Significant secretions CARDIOVASCULAR: HS audible. No murmur. RESPIRATORY:. Breath sounds equal bilaterally. Coarse rhonchi equal GASTROINTESTINAL: Abdomen soft, non-tender, minimally distended. : maurice in place with clear yellow urine MUSCULOSKELETAL: Extremities without clubbing, cyanosis, or edema. Wasting and contractures. Assessment & Plan Diagnosis: (1) Fever ICD Codes: R50.9 - Fever, unspecified Status: Acute (2) Leucocytosis ICD Codes: D72.829 - Elevated white blood cell count, unspecified Status: Acute (3) Pneumonia involving right lung ICD Codes: J18.9 - Pneumonia, unspecified organism Status: Acute Plan: on invanz with vancomycin fevers are better on prednisone change invanz to imipenem will fu Remarks Problem Qualifiers (1) Fever: Marilou Jackson Aug 05, 2017 17:55
[2017-08-05 19:50] VITALS: O2SAT 98
[2017-08-05 20:00] VITALS: BP 99/70; PULSE 87; RESP 18; TEMP 96.2; O2SAT 97
[2017-08-05] MEDS: QUEtiapine FUMARATE 25 MG TAB PO SCH (21:34)
--- NOTE | 2017-08-06 00:24 | EKG ---
Date Performed: 08/04/2017 Time Performed: 11:35:49 PTAGE: 47 years EKG: SINUS TACHYCARDIA NONSPECIFIC ST & T-WAVE ABNORMALITY BASELINE ARTIFACT ABNORMAL RHYTHM ECG PREVIOUS TRACING : 08/03/2017 04.45 Since the prior tracing, there has been no significant whitaker DOCTOR: Vargas Cole Interpretating Date/Time 08/06/2017 00:23:49
[2017-08-06] MEDS: VANCOMYCIN INJ 1,000 MG in SODIUM CHLOR 0.9% 250 ML INJ 250 ML IV SCH ×5 (01:00→20:55)
[2017-08-06] MEDS: azaTHIOprine 50 MG TAB PEG SCH ×2 (06:00→17:53)
[2017-08-06 07:50] VITALS: BP 113/78; PULSE 82; RESP 20; TEMP 96.3; O2SAT 98
[2017-08-06 08:00] VITALS: O2SAT 96
[2017-08-06 08:14] VITALS: PULSE 73
[2017-08-06] MEDS: ERTAPENEM INJ 1,000 MG in SODIUM CHLORIDE 0.9% INJ 100 ML IV SCH (08:53)
[2017-08-06] MEDS: SODIUM CHLOR 0.9% 1000 ML INJ 1,000 ML IV SCH (08:54)
[2017-08-06] MEDS: FLUoxetine HCL LIQUID 20 MG/5 ML CUP PEG SCH (08:55)
[2017-08-06] MEDS: SENNOSIDES SYRUP 8.8 MG/5 ML CUP PEG SCH (08:56)
[2017-08-06] MEDS: LACTOBACILLUS ACIDOPHILUS TAB PEG SCH ×2 (08:56→20:56)
[2017-08-06] MEDS: METOCLOPRAMIDE HCL SYRUP 10 MG/10 ML UDC PEG SCH ×4 (08:56→23:07)
[2017-08-06] MEDS: predniSONE 20 MG TAB PEG SCH (08:56)
[2017-08-06] MEDS: JUVEN POWDER 1 PACK G-TUBE SCH ×2 (08:57→20:56)
[2017-08-06] MEDS: ENOXAPARIN SODIUM 40 MG/0.4 ML SYRINGE SQ SCH (08:57)
[2017-08-06] MEDS: LANSOPRAZOLE SOLUTAB 30 MG TAB PEG SCH ×2 (08:59→20:56)
[2017-08-06] MEDS: HYOSCYAMINE SOLN 0.125 MG/ML 15 ML BTL PEG PRN (11:57)
--- NOTE | 2017-08-06 12:40 | HHI.PR ---
Subjective Remarks Follow-up neuro-Behcet's syndrome. Patient seen and examined, lying in bed in no apparent distress. Heart rate is controlled. Patient is afebrile overnight. Vital signs are stable. Continued on IV antibiotics. Infectious disease following. UA and urine culture negative. Sputum culture negative. Blood culture negative. Reports of emesis overnight. Slowly restart tube feeding. Objective Vitals Vital Signs Date Time Temp Pulse Resp B/P (MAP) Pulse Ox O2 Delivery O2 Flow Rate FiO2 08/06/17 08:14 73 08/06/17 08:00 96 Nasal Cannula 3.00 08/06/17 03:17 Nasal Cannula 2.00 21 08/05/17 20:00 96.2 87 18 99/70 (80) 97 08/05/17 19:50 98 Nasal Cannula 4.00 08/05/17 15:25 110 08/05/17 14:31 96 Nasal Cannula 2.00 I/O 08/05/17 08/05/17 08/05/17 08/06/17 08/06/17 08/06/17 07:00 15:00 23:00 07:00 15:00 23:00 Intake Total 0 ml 1250 ml 830 ml 0 ml Output Total 450 ml 600 ml 700 ml Balance -450 ml 1250 ml 230 ml -700 ml Intake Oral 0 ml 0 ml IV Total 1250 ml 260 ml Tube Feeding 420 ml Other 150 ml Output Urine Total 450 ml 600 ml 700 ml # Bowel Movements 1 2 Result Diagram: 08/04/17 0925 08/04/17 0925 Imaging Last Impressions Chest X-Ray 08/03/17 0000 Signed Impressions: Service Date/Time: July 01:44 - CONCLUSION: Mild airspace opacity in the right midlung zone suspicious for an infectious process given the clinical history. Suggest followup imaging following appropriate therapy to confirm resolution. Josafat Garrido MD Abdomen X-Ray 07/25/17 0000 Signed Impressions: Service Date/Time: Tuesday, July 25, 2017 13:11 - CONCLUSION: 1. Normal bowel gas pattern. 2. Percutaneous gastrostomy tube. Gen Potter MD Hip Aspiration/Injection 10/08/16 0000 Signed Impressions: Service Date/Time: Tuesday, October 11, 2016 13:41 - CONCLUSION: Uncomplicated aspiration as above. Minimal fluid on the right. No identifiable fluid on the left Clayton Max MD Lower Extremity Ultrasound 10/06/16 Signed Impressions: Service Date/Time: September 17:29 - CONCLUSION: Normal examination. Josafat Meyer MD CT Angiography 10/06/16 Signed Impressions: Service Date/Time: September 20:31 - CONCLUSION: Minimal right upper lobe infiltrate and basilar atelectasis. No evidence of pulmonary embolism.. Josafat Meyer MD Abdomen/Pelvis CT 10/06/16 Signed Impressions: Service Date/Time: September 20:31 - CONCLUSION: No evidence of pelvic abscess. Josafat Meyer MD Upper Extremity Ultrasound 09/28/16 Signed Impressions: Service Date/Time: Wednesday, September 28, 2016 19:15 - CONCLUSION: 1. Occlusive superficial thrombosis in the left cephalic vein near the antecubital fossa. No deep venous thrombosis. Sumit Bourgeois MD Renal Ultrasound 08/28/16 Signed Impressions: Service Date/Time: Sunday, August 28, 2016 20:03 - CONCLUSION: Mild increased echotexture of both kidneys. Baldev Vu MD Lumbar Puncture Fluoroscopy 08/17/16 0000 Signed Impressions: Service Date/Time: Wednesday, August 17, 2016 12:26 - CONCLUSION: Uncomplicated fluoroscopically guided lumbar puncture. Vishal Beckford Jr., MD Brain MRI 08/17/16 0000 Signed Impressions: Service Date/Time: Wednesday, August 17, 2016 13:28 - CONCLUSION: Remote long-standing areas of abnormality in the brainstem and middle cerebellar peduncle consistent with remote infarcts or contusion. No acute intracranial abnormality. Chacho Bright MD Head CT 08/16/16 0000 Signed Impressions: Service Date/Time: Tuesday, August 16, 2016 09:55 - CONCLUSION: Chronic ischemic changes left frontal lobe possibly from evidence of previous ventriculostomy placement, unchanged. No acute intracranial abnormality. Gen Potter MD Modified Barium Swallow 08/15/16 0000 Signed Impressions: Service Date/Time: Monday, August 15, 2016 00:00 - CONCLUSION: See report above and speech pathology report Chacho Bright MD Objective Remarks GENERAL: Well-developed cachectic and contracted male patient in NAD. Awake and alert. Nodding appropriately. SKIN: Warm and dry. No rash. HEENT: Normocephalic. Atraumatic. Pupils equal and round. No scleral icterus. No injection or drainage. No nasal bleeding or discharge. Mucous membranes pink and moist. NECK: Supple. Trachea midline. CARDIOVASCULAR: Regular rate and rhythm. S1, S2 noted. No murmur appreciated. RESPIRATORY: No accessory muscle use. Course and rhonchi throughout lung lawson. Breath sounds equal bilaterally. GASTROINTESTINAL: Abdomen soft, non-tender, nondistended. Normoactive bowel sounds x4. No guarding. PEG tube noted, no erythema or drainage from site, c/d/ i. MUSCULOSKELETAL: No obvious deformities. Extremities without clubbing, cyanosis , or edema. Procedures 07/19/16 EGD with PEG tube placement 09/27/16 colonoscopy Date of Insertion: Aug 04, 2017 A/P Problem List: (1) Neurologic type Behcet's syndrome ICD Code: M35.2 - Behcet's disease Status: Chronic (2) Hospital acquired PNA ICD Code: J18.9 - Pneumonia, unspecified organism Status: Resolved (3) Sepsis ICD Code: A41.9 - Sepsis, unspecified organism Status: Resolved (4) Encephalopathy ICD Code: G93.40 - Encephalopathy, unspecified Status: Resolved (5) GI bleed ICD Code: K92.2 - Gastrointestinal hemorrhage, unspecified Status: Resolved (6) HCAP (healthcare-associated pneumonia) ICD Code: J18.9 - Pneumonia, unspecified organism Status: Resolved (7) UTI (urinary tract infection) ICD Code: N39.0 - Urinary tract infection, site not specified Status: Resolved (8) Leucocytosis ICD Code: D72.829 - Elevated white blood cell count, unspecified Status: Acute (9) Fever ICD Code: R50.9 - Fever, unspecified Status: Acute (10) Effusion of hip joint ICD Code: M25.459 - Effusion, unspecified hip Status: Acute (11) 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 Improved. Patient has been afebrile overnight. Sputum culture negative urine culture negative blood cultures negative. Followed by ID. Changed Invanz to Imipenem. Chest x-ray showing mild airspace opacity in the right midlung zone suspicious for infectious process. Replaced FC 08/04/16 Blood cultures drawn no growth to date. Continue to follow. Influenza negative. Continue IV fluid. C. difficile negative. Neuro-Behcet, history of frontal lobe CVA, encephalopathy, history of meningitis , Blurred vision/double vision, urinary retention, chronic No new changes on imaging. Patient was followed by neurology. Aphasic at baseline. Continue Imuran, prednisone EEG shows mild to moderate slowing at times of various depending on the epoch , there was no epileptic activity seen Continue PT/OT Palliative care still following the patient. 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 07/25/17, next time would be 08/15/17 --Decreased oral intake and dysphagia on initial presentation Speech therapy evaluated patient. S/P barium swallow. Patient with severe dysphagia. GI was consulted and PEG tube was placed. Dietary reconsulted for bolus feeding recommendations Continue bolus feeding per dietary recommendations Coccyx decubitus. Ankle ulceration Wound care nurse is following the patient for management Patient with specialty bed Mood disorder, depression Psychiatry evaluated patient and made recommendations Prozac 40 mg daily Seroquel 50 mg at bedtime Diabetes Glucose continues to be well controlled DVT Prophylaxis: Lovenox, TEDs/SCD Discharge Planning Case management assisting. Problem Qualifiers (1) GI bleed: (2) UTI (urinary tract infection): (3) Fever: (4) Effusion of hip joint: Dotty Pacheco Aug 06, 2017 12:40
[2017-08-06 15:01] VITALS: PULSE 76
[2017-08-06 17:45] VITALS: BP 90/58; PULSE 73; RESP 20; TEMP 97.5; O2SAT 98
[2017-08-06] MEDS: IMIPENEM/CILASTAT 500 MG in NS MINIBAG 100 ML IV SCH (17:53)
[2017-08-06 20:00] VITALS: BP 119/75; PULSE 70; PULSE 73; RESP 20; TEMP 97.3; O2SAT 100; O2SAT 98
[2017-08-07] VITALS (7 sets, daily range): BP systolic 103–142; BP diastolic 54–85; PULSE 67–96; RESP 14–20; TEMP 96.5–98.6; O2SAT 96–100
[2017-08-07] MEDS: IMIPENEM/CILASTAT 500 MG in NS MINIBAG 100 ML IV SCH ×3 (01:42→17:31)
[2017-08-07] MEDS: VANCOMYCIN INJ 1,000 MG in SODIUM CHLOR 0.9% 250 ML INJ 250 ML IV SCH ×3 (04:35→21:40)
[2017-08-07] MEDS: azaTHIOprine 50 MG TAB PEG SCH ×2 (06:30→17:31)
[2017-08-07 07:55] LABS: CREATININE 0.67 MG/DL (0.60-1.30)
[2017-08-07 08:10] LABS: AUTOMATED NEUTROPHIL # 8.8 TH/MM3 (1.8-7.7); BASOPHIL % 0.2 % (0.0-2.0); EOSINOPHIL % 0.1 % (0.0-4.0); HEMATOCRIT 33.3 % (39.0-51.0); HEMOGLOBIN 10.4 GM/DL (13.0-17.0); LYMPH % 9.2 % (9.0-44.0); LYMPHOCYTE # 0.9 TH/MM3 (1.0-4.8); MEAN CELL VOLUME 93.9 FL (80.0-100.0); MEAN CORPUSCULAR HEMOGLOBIN 29.3 PG (27.0-34.0); MEAN CORPUSCULAR HGB CONC 31.2 % (32.0-36.0); MEAN PLATELET VOLUME 9.4 FL (7.0-11.0); MONO % 4.9 % (0.0-8.0); MONOCYTE # 0.5 TH/MM3 (0-0.9); NEUT % 85.6 % (16.0-70.0); PLATELET COUNT 319 TH/MM3 (150-450); RED BLOOD COUNT 3.55 MIL/MM3 (4.50-5.90); RED CELL DISTRIBUTION WIDTH 15.4 % (11.6-17.2); WHITE BLOOD COUNT 10.2 TH/MM3 (4.0-11.0)
[2017-08-07] MEDS: METOCLOPRAMIDE HCL SYRUP 10 MG/10 ML UDC PEG SCH ×4 (08:11→21:42)
[2017-08-07] MEDS: FLUoxetine HCL LIQUID 20 MG/5 ML CUP PEG SCH (08:11)
[2017-08-07] MEDS: ENOXAPARIN SODIUM 40 MG/0.4 ML SYRINGE SQ SCH (08:12)
[2017-08-07] MEDS: LANSOPRAZOLE SOLUTAB 30 MG TAB PEG SCH ×2 (08:12→21:42)
[2017-08-07] MEDS: LACTOBACILLUS ACIDOPHILUS TAB PEG SCH ×2 (08:12→21:42)
[2017-08-07] MEDS: predniSONE 20 MG TAB PEG SCH (08:12)
[2017-08-07] MEDS: SENNOSIDES SYRUP 8.8 MG/5 ML CUP PEG SCH (08:17)
[2017-08-07] MEDS: JUVEN POWDER 1 PACK G-TUBE SCH ×2 (08:18→21:41)
--- NOTE | 2017-08-07 09:54 | HHI.IDPN ---
Subjective Subjective Remarks is a 46 AAM with Neuro Behcet's disease, difficult placement and not safe discharge so continues to reside at [facility]. No fevers for over 24 hrs More alert Antibiotics Vancomycin and Imipenem Lines Line sites with no e.o infection- peripheral line Past Medical History reviewed Allergies: Uncoded Allergies: ADHESIVE TAPE (Allergy, Severe, 09/21/16) BLISTERS Objective . Vital Signs Date Time Temp Pulse Resp B/P (MAP) Pulse Ox O2 Delivery O2 Flow Rate FiO2 08/07/17 04:00 97.2 72 20 118/56 (76) 100 08/07/17 00:00 97.3 84 20 134/54 (80) 99 08/06/17 20:00 100 Nasal Cannula 2.00 08/06/17 20:00 97.3 70 20 119/75 (90) 100 08/06/17 20:00 98 Nasal Cannula 2.00 08/06/17 20:00 73 08/06/17 17:45 97.5 73 20 90/58 (69) 98 08/06/17 15:01 76 . Laboratory Tests Test 08/07/17 07:20 White Blood Count 10.2 TH/MM3 Red Blood Count 3.55 MIL/MM3 Hemoglobin 10.4 GM/DL Hematocrit 33.3 % Mean Corpuscular Volume 93.9 FL Mean Corpuscular Hemoglobin 29.3 PG Mean Corpuscular Hemoglobin Concent 31.2 % Red Cell Distribution Width 15.4 % Platelet Count 319 TH/MM3 Mean Platelet Volume 9.4 FL Neutrophils (%) (Auto) 85.6 % Lymphocytes (%) (Auto) 9.2 % Monocytes (%) (Auto) 4.9 % Eosinophils (%) (Auto) 0.1 % Basophils (%) (Auto) 0.2 % Neutrophils # (Auto) 8.8 TH/MM3 Lymphocytes # (Auto) 0.9 TH/MM3 Monocytes # (Auto) 0.5 TH/MM3 Eosinophils # (Auto) 0.0 TH/MM3 Basophils # (Auto) 0.0 TH/MM3 CBC Comment DIFF FINAL Differential Comment Laboratory Tests Test 08/07/17 07:20 Creatinine 0.67 MG/DL Estimat Glomerular Filtration Rate 155 ML/MIN Microbiology Date/Time Source Procedure Growth Status 08/05/17 14:30 Sputum Expectorated Sputum Gram Stain - Final Resulted 08/05/17 14:30 Sputum Expectorated Sputum Sputum Culture - Preliminary HEAVY GROWTH NORMAL RESPIRATORY TERRELL... Resulted 08/04/17 12:30 Nasal Washing Influenza Types A,B Antigen (STAR) - Final NEGATIVE FOR FLU A AND B ANTIGEN.... Complete 08/04/17 14:45 Urine Catheterized Urine Urine Culture - Preliminary Yeast Species Resulted Imaging Last Impressions Chest X-Ray 10/11/16 0000 Signed Impressions: Service Date/Time: Tuesday, October 11, 2016 21:23 - CONCLUSION: 1. Bilateral hazy airspace disease. Differential diagnosis includes edema and aspiration. Sumit Bourgeois MD Hip Aspiration/Injection 10/08/16 0000 Signed Impressions: Service Date/Time: Tuesday, October 11, 2016 13:41 - CONCLUSION: Uncomplicated aspiration as above. Minimal fluid on the right. No identifiable fluid on the left Clayton Max MD Lower Extremity Ultrasound 10/06/16 0000 Signed Impressions: Service Date/Time: September 17:29 - CONCLUSION: Normal examination. Josafat Meyer MD CT Angiography 10/06/16 0000 Signed Impressions: Service Date/Time: September 20:31 - CONCLUSION: Minimal right upper lobe infiltrate and basilar atelectasis. No evidence of pulmonary embolism.. Josafat Meyer MD Abdomen/Pelvis CT 10/06/16 0000 Signed Impressions: Service Date/Time: September 20:31 - CONCLUSION: No evidence of pelvic abscess. Josafat Meyer MD Upper Extremity Ultrasound 09/28/16 0000 Signed Impressions: Service Date/Time: Wednesday, September 28, 2016 19:15 - CONCLUSION: 1. Occlusive superficial thrombosis in the left cephalic vein near the antecubital fossa. No deep venous thrombosis. Sumit Bourgeois MD Renal Ultrasound 08/28/16 0000 Signed Impressions: Service Date/Time: Sunday, August 28, 2016 20:03 - CONCLUSION: Mild increased echotexture of both kidneys. Baldev Vu MD Lumbar Puncture Fluoroscopy 08/17/16 0000 Signed Impressions: Service Date/Time: Wednesday, August 17, 2016 12:26 - CONCLUSION: Uncomplicated fluoroscopically guided lumbar puncture. Vishal Beckford Jr., MD Brain MRI 08/17/16 0000 Signed Impressions: Service Date/Time: Wednesday, August 17, 2016 13:28 - CONCLUSION: Remote long-standing areas of abnormality in the brainstem and middle cerebellar peduncle consistent with remote infarcts or contusion. No acute intracranial abnormality. Chacho Bright MD Abdomen X-Ray 08/17/16 0000 Signed Impressions: Service Date/Time: Wednesday, August 17, 2016 13:02 - CONCLUSION: No evidence of obstruction. No MRI incompatible foreign body is identified. Chacho Bright MD Head CT 08/16/16 0000 Signed Impressions: Service Date/Time: Tuesday, August 16, 2016 09:55 - CONCLUSION: Chronic ischemic changes left frontal lobe possibly from evidence of previous ventriculostomy placement, unchanged. No acute intracranial abnormality. Gen Potter MD Modified Barium Swallow 08/15/16 0000 Signed Impressions: Service Date/Time: Monday, August 15, 2016 00:00 - CONCLUSION: See report above and speech pathology report Chacho Bright MD Physical Exam GENERAL: Awake , chronically ill appearing patient. Responding better today SKIN: Old scars on arms. EYES: Pt. No scleral icterus. No injection or drainage. ENT: moist mucosae drooling. Significant secretions CARDIOVASCULAR: HS audible. No murmur. RESPIRATORY:. Breath sounds equal bilaterally. Coarse rhonchi equal GASTROINTESTINAL: Abdomen soft, non-tender, minimally distended. Has a Peg : maurice in place with clear yellow urine MUSCULOSKELETAL: Extremities without clubbing, cyanosis, or edema. Wasting and contractures. Assessment & Plan Diagnosis: (1) Neurologic type Behcet's syndrome ICD Codes: M35.2 - Behcet's disease Status: Chronic (2) Fever ICD Codes: R50.9 - Fever, unspecified Status: Acute Plan: Reviewed cultures Patient now afebrile Continue the IV Vancomycin and Imipenem for now (3) Leucocytosis ICD Codes: D72.829 - Elevated white blood cell count, unspecified Status: Acute Plan: Improved Remarks Problem Qualifiers (1) Fever: Rachel Casarez MD Aug 07, 2017 09:54
[2017-08-07] MEDS: HYOSCYAMINE SOLN 0.125 MG/ML 15 ML BTL PEG PRN (11:38)
--- NOTE | 2017-08-07 12:17 | HHI.PR ---
Subjective Remarks Follow up neuro-Bechets syndrome. Patient seen and examined, lying in bed comfortably, in NAD. Reports overnight of more lethargy. ABG ordered which was unremarkable. Patient is now afebrile. Labs normal. Has been having increasing bouts of emesis with TF bolus. Has been changed to continuous for now to meet nutritional requirements. Pearl Stringer following. Objective Vitals Vital Signs Date Time Temp Pulse Resp B/P (MAP) Pulse Ox O2 Delivery O2 Flow Rate FiO2 08/07/17 08:06 67 08/07/17 04:00 97.2 72 20 118/56 (76) 100 08/07/17 00:00 97.3 84 20 134/54 (80) 99 08/06/17 20:00 100 Nasal Cannula 2.00 08/06/17 20:00 97.3 70 20 119/75 (90) 100 08/06/17 20:00 98 Nasal Cannula 2.00 08/06/17 20:00 73 08/06/17 17:45 97.5 73 20 90/58 (69) 98 08/06/17 15:01 76 I/O 08/06/17 08/06/17 08/06/17 08/07/17 08/07/17 08/07/17 07:00 15:00 23:00 07:00 15:00 23:00 Intake Total 0 ml 1350 ml 400 ml 1588 ml Output Total 700 ml 550 ml 1250 ml Balance -700 ml 1350 ml -150 ml 338 ml Intake Oral 0 ml IV Total 1350 ml 400 ml 350 ml Tube Feeding 588 ml Tube Irrigant 650 ml Output Urine Total 700 ml 550 ml 1250 ml # Bowel Movements 1 0 Result Diagram: 08/07/17 0720 08/07/17 0720 Imaging Last Impressions Chest X-Ray 08/03/17 0000 Signed Impressions: Service Date/Time: July 01:44 - CONCLUSION: Mild airspace opacity in the right midlung zone suspicious for an infectious process given the clinical history. Suggest followup imaging following appropriate therapy to confirm resolution. Josafat Garrido MD Abdomen X-Ray 07/25/17 0000 Signed Impressions: Service Date/Time: Tuesday, July 25, 2017 13:11 - CONCLUSION: 1. Normal bowel gas pattern. 2. Percutaneous gastrostomy tube. Gen Potter MD Hip Aspiration/Injection 10/08/16 0000 Signed Impressions: Service Date/Time: Tuesday, October 11, 2016 13:41 - CONCLUSION: Uncomplicated aspiration as above. Minimal fluid on the right. No identifiable fluid on the left Clayton Max MD Lower Extremity Ultrasound 10/06/16 0000 Signed Impressions: Service Date/Time: September 17:29 - CONCLUSION: Normal examination. Josafat Meyer MD CT Angiography 10/06/16 0000 Signed Impressions: Service Date/Time: September 20:31 - CONCLUSION: Minimal right upper lobe infiltrate and basilar atelectasis. No evidence of pulmonary embolism.. Josafat Meyer MD Abdomen/Pelvis CT 10/06/16 0000 Signed Impressions: Service Date/Time: September 20:31 - CONCLUSION: No evidence of pelvic abscess. Josafat Meyer MD Upper Extremity Ultrasound 09/28/16 0000 Signed Impressions: Service Date/Time: Wednesday, September 28, 2016 19:15 - CONCLUSION: 1. Occlusive superficial thrombosis in the left cephalic vein near the antecubital fossa. No deep venous thrombosis. Sumit Bourgeois MD Renal Ultrasound 08/28/16 0000 Signed Impressions: Service Date/Time: Sunday, August 28, 2016 20:03 - CONCLUSION: Mild increased echotexture of both kidneys. Baldev Vu MD Lumbar Puncture Fluoroscopy 08/17/16 0000 Signed Impressions: Service Date/Time: Wednesday, August 17, 2016 12:26 - CONCLUSION: Uncomplicated fluoroscopically guided lumbar puncture. Vishal Beckford Jr., MD Brain MRI 08/17/16 0000 Signed Impressions: Service Date/Time: Wednesday, August 17, 2016 13:28 - CONCLUSION: Remote long-standing areas of abnormality in the brainstem and middle cerebellar peduncle consistent with remote infarcts or contusion. No acute intracranial abnormality. Chacho Bright MD Head CT 08/16/16 0000 Signed Impressions: Service Date/Time: Tuesday, August 16, 2016 09:55 - CONCLUSION: Chronic ischemic changes left frontal lobe possibly from evidence of previous ventriculostomy placement, unchanged. No acute intracranial abnormality. Gen Potter MD Modified Barium Swallow 08/15/16 0000 Signed Impressions: Service Date/Time: Monday, August 15, 2016 00:00 - CONCLUSION: See report above and speech pathology report Chacho Bright MD Last Impressions Chest X-Ray 08/03/17 0000 Signed Impressions: Service Date/Time: July 01:44 - CONCLUSION: Mild airspace opacity in the right midlung zone suspicious for an infectious process given the clinical history. Suggest followup imaging following appropriate therapy to confirm resolution. Josafat Garrido MD Abdomen X-Ray 07/25/17 0000 Signed Impressions: Service Date/Time: Tuesday, July 25, 2017 13:11 - CONCLUSION: 1. Normal bowel gas pattern. 2. Percutaneous gastrostomy tube. Gen Potter MD Hip Aspiration/Injection 10/08/16 0000 Signed Impressions: Service Date/Time: Tuesday, October 11, 2016 13:41 - CONCLUSION: Uncomplicated aspiration as above. Minimal fluid on the right. No identifiable fluid on the left Clayton Max MD Lower Extremity Ultrasound 10/06/16 0000 Signed Impressions: Service Date/Time: September 17:29 - CONCLUSION: Normal examination. Josafat Meyer MD CT Angiography 10/06/16 0000 Signed Impressions: Service Date/Time: September 20:31 - CONCLUSION: Minimal right upper lobe infiltrate and basilar atelectasis. No evidence of pulmonary embolism.. Josafat Meyer MD Abdomen/Pelvis CT 10/06/16 0000 Signed Impressions: Service Date/Time: September 20:31 - CONCLUSION: No evidence of pelvic abscess. Josafat Meyer MD Upper Extremity Ultrasound 09/28/16 0000 Signed Impressions: Service Date/Time: Wednesday, September 28, 2016 19:15 - CONCLUSION: 1. Occlusive superficial thrombosis in the left cephalic vein near the antecubital fossa. No deep venous thrombosis. Sumit Bourgeois MD Renal Ultrasound 08/28/16 0000 Signed Impressions: Service Date/Time: Sunday, August 28, 2016 20:03 - CONCLUSION: Mild increased echotexture of both kidneys. Baldev Vu MD Lumbar Puncture Fluoroscopy 08/17/16 0000 Signed Impressions: Service Date/Time: Wednesday, August 17, 2016 12:26 - CONCLUSION: Uncomplicated fluoroscopically guided lumbar puncture. Vishal Beckford Jr., MD Brain MRI 08/17/16 0000 Signed Impressions: Service Date/Time: Wednesday, August 17, 2016 13:28 - CONCLUSION: Remote long-standing areas of abnormality in the brainstem and middle cerebellar peduncle consistent with remote infarcts or contusion. No acute intracranial abnormality. Chacho Bright MD Head CT 08/16/16 0000 Signed Impressions: Service Date/Time: Tuesday, August 16, 2016 09:55 - CONCLUSION: Chronic ischemic changes left frontal lobe possibly from evidence of previous ventriculostomy placement, unchanged. No acute intracranial abnormality. Gen Potter MD Modified Barium Swallow 08/15/16 0000 Signed Impressions: Service Date/Time: Monday, August 15, 2016 00:00 - CONCLUSION: See report above and speech pathology report Chacho Bright MD Objective Remarks GENERAL: Well-developed cachectic and contracted male patient in NAD. Awake and alert. Nodding appropriately. SKIN: Warm and dry. No rash. HEENT: Normocephalic. Atraumatic. Pupils equal and round. No scleral icterus. No injection or drainage. No nasal bleeding or discharge. Mucous membranes pink and moist. NECK: Supple. Trachea midline. CARDIOVASCULAR: Regular rate and rhythm. S1, S2 noted. No murmur appreciated. RESPIRATORY: No accessory muscle use. Course and rhonchi throughout lung lawson. Breath sounds equal bilaterally. GASTROINTESTINAL: Abdomen soft, non-tender, nondistended. Normoactive bowel sounds x4. No guarding. PEG tube noted, no erythema or drainage from site, c/d/ i. MUSCULOSKELETAL: No obvious deformities. Extremities without clubbing, cyanosis , or edema. 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's disease Status: Chronic (2) Hospital acquired PNA ICD Code: J18.9 - Pneumonia, unspecified organism Status: Resolved (3) Sepsis ICD Code: A41.9 - Sepsis, unspecified organism Status: Resolved (4) Encephalopathy ICD Code: G93.40 - Encephalopathy, unspecified Status: Resolved (5) GI bleed ICD Code: K92.2 - Gastrointestinal hemorrhage, unspecified Status: Resolved (6) HCAP (healthcare-associated pneumonia) ICD Code: J18.9 - Pneumonia, unspecified organism Status: Resolved (7) UTI (urinary tract infection) ICD Code: N39.0 - Urinary tract infection, site not specified Status: Resolved (8) Leucocytosis ICD Code: D72.829 - Elevated white blood cell count, unspecified Status: Acute (9) Fever ICD Code: R50.9 - Fever, unspecified Status: Acute (10) Effusion of hip joint ICD Code: M25.459 - Effusion, unspecified hip Status: Acute (11) 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 Improved. Patient has been afebrile overnight. Sputum culture negative urine culture negative blood cultures negative. Followed by ID. Continue Imipenem and Vanco per ID. Chest x-ray showing mild airspace opacity in the right midlung zone suspicious for infectious process. Replaced FC 08/04/16. Repeat Urine culture showing Daphney. Diflucan x 1 given. Blood cultures drawn no growth to date. Continue to follow. Influenza negative. Continue IV fluid. C. difficile negative. Neuro-Behcet, history of frontal lobe CVA, encephalopathy, history of meningitis , Blurred vision/double vision, urinary retention, chronic No new changes on imaging. Patient was followed by neurology. Aphasic at baseline. Continue Imuran, prednisone EEG shows mild to moderate slowing at times of various depending on the epoch , there was no epileptic activity seen Continue PT/OT Palliative care still following the patient. 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 07/25/17, next time would be 2/20/18 --Decreased oral intake and dysphagia on initial presentation Speech therapy evaluated patient. S/P barium swallow. Patient with severe dysphagia. GI was consulted and PEG tube was placed. Dietary reconsulted for bolus feeding recommendations Continue bolus feeding per dietary recommendations Coccyx decubitus. Ankle ulceration Wound care nurse is following the patient for management Patient with specialty bed Mood disorder, depression Psychiatry evaluated patient and made recommendations Prozac 40 mg daily Seroquel 50 mg at bedtime Diabetes Glucose continues to be well controlled DVT Prophylaxis: Lovenox, TEDs/SCD Discharge Planning Case management assisting. Problem Qualifiers (1) GI bleed: (2) UTI (urinary tract infection): (3) Fever: (4) Effusion of hip joint: Dotty Pacheco Aug 07, 2017 12:17
[2017-08-08] VITALS (8 sets, daily range): BP systolic 92–138; BP diastolic 75–86; PULSE 72–87; RESP 14–20; TEMP 96.2–98.6; O2SAT 94–98
[2017-08-08] MEDS: IMIPENEM/CILASTAT 500 MG in NS MINIBAG 100 ML IV SCH ×3 (02:07→16:39)
[2017-08-08] MEDS: VANCOMYCIN INJ 1,000 MG in SODIUM CHLOR 0.9% 250 ML INJ 250 ML IV SCH ×3 (05:05→21:19)
[2017-08-08] MEDS: azaTHIOprine 50 MG TAB PEG SCH ×2 (05:08→16:39)
[2017-08-08] MEDS: ENOXAPARIN SODIUM 40 MG/0.4 ML SYRINGE SQ SCH (08:45)
[2017-08-08] MEDS: LACTOBACILLUS ACIDOPHILUS TAB PEG SCH ×2 (08:45→21:21)
[2017-08-08] MEDS: JUVEN POWDER 1 PACK G-TUBE SCH ×2 (08:46→21:21)
[2017-08-08] MEDS: predniSONE 20 MG TAB PEG SCH (08:46)
[2017-08-08] MEDS: FLUoxetine HCL LIQUID 20 MG/5 ML CUP PEG SCH (08:46)
[2017-08-08] MEDS: LANSOPRAZOLE SOLUTAB 30 MG TAB PEG SCH ×2 (08:46→21:21)
[2017-08-08] MEDS: METOCLOPRAMIDE HCL SYRUP 10 MG/10 ML UDC PEG SCH ×2 (08:46→11:59)
[2017-08-08] MEDS: SENNOSIDES SYRUP 8.8 MG/5 ML CUP PEG SCH (08:46)
--- NOTE | 2017-08-08 11:57 | HHI.PR ---
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 Patient denies any new complaints. Vital signs are stable, patient is been afebrile since 08/04/17. Objective Vitals Vital Signs Date Time Temp Pulse Resp B/P (MAP) Pulse Ox O2 Delivery O2 Flow Rate FiO2 08/08/17 08:00 98.0 84 16 138/83 (101) 95 08/08/17 04:00 97.3 80 20 107/81 (90) 95 08/08/17 00:00 97.4 72 20 92/75 (81) 98 08/07/17 22:17 Nasal Cannula 1.00 08/07/17 20:00 96.9 82 20 133/84 (100) 97 08/07/17 20:00 71 08/07/17 20:00 96 Nasal Cannula 1.00 08/07/17 18:00 96.5 70 14 103/85 (91) 100 08/07/17 12:00 98.6 87 14 142/63 (89) 96 I/O 08/07/17 08/07/17 08/07/17 08/08/17 08/08/17 08/08/17 07:00 15:00 23:00 07:00 15:00 23:00 Intake Total 1588 ml 1883 ml 1490 ml Output Total 1250 ml 1800 ml 800 ml Balance 338 ml 83 ml 690 ml Intake Oral 0 ml IV Total 350 ml 250 ml 350 ml Tube Feeding 588 ml 1133 ml 480 ml Tube Irrigant 650 ml 660 ml Other 500 ml Output Urine Total 1250 ml 1800 ml 800 ml Stool Total 0 ml # Bowel Movements 0 0 0 Result Diagram: 08/07/1720 08/07/17 0720 Objective Remarks GENERAL: Well-developed, cachectic and contracted. HEENT: Head is normocephalic without any lesions or masses noted. Facial features are symmetric. Eyes: Extraocular muscles are intact. Conjunctivae were clear. NECK: Trachea midline no deviation. CARDIAC: Regular rhythm, tachycardia noted. S1/S2 are heard. No murmurs gallops or rubs. LUNGS: Clear to auscultation bilaterally. No wheeze, rhonchi or rales. No use of accessory muscles on inspiration or expiration. ABDOMEN: Soft, nontender. Nondistended. Bowel sounds heard in all 4 quadrants. No organomegaly or masses. Negative rebound, negative guarding. PEG tube noted without any excoriation. EXTREMITIES: No edema, pulses are equal bilaterally. No cyanosis or clubbing. Procedures 07/19/16 EGD with PEG tube placement 09/27/16 colonoscopy Urinary Catheter: Yes Assessment to: Continue Kowalski insert reason: Obstruction/Retention Date of Insertion: Aug 04, 2017 Vascular Central Line Catheter: No A/P Assessment and Plan Fever , recurrent, resolved Chest x-ray indicating right midlung airspace opacity suspicious for infectious process Sputum culture only indicated heavy growth normal respiratory kateryna Influenza testing was negative C. difficile testing negative Blood cultures did indicate 06/29 positive with staph species coag negative. Likely contamination Urine culture showing Daphney parapsilosis Status post fluconazole 150 mg by mouth single dose Infectious disease was reconsulted Patient has been continued on vancomycin, imipenem We'll hold Reglan at this time due to possible neuroleptic malignant syndrome and continue monitor for fevers Neuro-Behcet, history of frontal lobe CVA, encephalopathy, history of meningitis , Blurred vision/double vision, urinary retention, chronic No new changes on imaging. Patient was followed by neurology. Aphasic at baseline. Continue Imuran, prednisone EEG shows mild to moderate slowing at times of various depending on the epoch , there was no epileptic activity seen Continue PT/OT Palliative care still following the patient. 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 07/25/17, next time would be 08/15/17 --Decreased oral intake and dysphagia on initial presentation Speech therapy evaluated patient. S/P barium swallow. Patient with severe dysphagia. GI was consulted and PEG tube was placed. Dietary reconsulted for bolus feeding recommendations Records indicate that patient been having vomiting episodes with bolus feeding Continue bolus feeding per dietary recommendations Coccyx decubitus. Ankle ulceration Wound care nurse is following the patient for management Patient with specialty bed Mood disorder, depression Psychiatry evaluated patient and made recommendations Prozac 40 mg daily Seroquel 25 mg at bedtime Diabetes Glucose continues to be well controlled, DVT Prophylaxis: Lovenox, TEDs/SCD Discharge Planning Case management for discharge planning, Ede Richardson Aug 08, 2017 11:57
[2017-08-09] VITALS (7 sets, daily range): BP systolic 110–129; BP diastolic 79–98; PULSE 77–100; RESP 16–24; TEMP 97–98.9; O2SAT 83–100
[2017-08-09] MEDS: IMIPENEM/CILASTAT 500 MG in NS MINIBAG 100 ML IV SCH ×2 (01:35→10:13)
[2017-08-09] MEDS: VANCOMYCIN INJ 1,000 MG in SODIUM CHLOR 0.9% 250 ML INJ 250 ML IV SCH ×3 (04:49→06:55)
[2017-08-09] MEDS: azaTHIOprine 50 MG TAB PEG SCH ×2 (06:16→17:33)
[2017-08-09 06:46] LABS: CREATININE 0.6 MG/DL (0.60-1.30)
--- NOTE | 2017-08-09 09:16 | HHI.PR ---
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 Patient does not indicate any new complaints. He is resting comfortably. Vital signs are stable, remains afebrile Objective Vitals Vital Signs Date Time Temp Pulse Resp B/P (MAP) Pulse Ox O2 Delivery O2 Flow Rate FiO2 08/09/17 00:51 21 08/09/17 00:00 97.0 79 16 125/85 (98) 94 08/08/17 20:00 95 Room Air 08/08/17 20:00 96.2 84 16 103/79 (87) 95 08/08/17 16:45 98.1 76 14 126/77 (93) 94 08/08/17 14:09 95 21 08/08/17 14:00 98.6 87 14 129/86 (100) 97 08/08/17 12:04 95 Nasal Cannula 1.00 08/08/17 10:00 Nasal Cannula 1.00 21 I/O 08/08/17 08/08/17 08/08/17 08/09/17 08/09/17 08/09/17 07:00 15:00 23:00 07:00 15:00 23:00 Intake Total 1490 ml 1940 ml 1155 ml Output Total 800 ml 550 ml 700 ml Balance 690 ml 1390 ml 455 ml Intake Oral 0 ml IV Total 350 ml 600 ml Tube Feeding 480 ml 620 ml 480 ml Tube Irrigant 660 ml 675 ml Other 720 ml Output Urine Total 800 ml 550 ml 700 ml Stool Total 0 ml # Bowel Movements 0 0 1 Result Diagram: 08/07/17 0720 08/09/17 0445 Objective Remarks GENERAL: Well-developed, cachectic and contracted. HEENT: Head is normocephalic without any lesions or masses noted. Facial features are symmetric. Eyes: Extraocular muscles are intact. Conjunctivae were clear. NECK: Trachea midline no deviation. CARDIAC: Regular rhythm, tachycardia noted. S1/S2 are heard. No murmurs gallops or rubs. LUNGS: Clear to auscultation bilaterally. No wheeze, rhonchi or rales. No use of accessory muscles on inspiration or expiration. ABDOMEN: Soft, nontender. Nondistended. Bowel sounds heard in all 4 quadrants. No organomegaly or masses. Negative rebound, negative guarding. PEG tube noted without any excoriation. EXTREMITIES: No edema, pulses are equal bilaterally. No cyanosis or clubbing. Procedures 07/19/16 EGD with PEG tube placement 09/27/16 colonoscopy Urinary Catheter: Yes Assessment to: Continue Kowalski insert reason: Obstruction/Retention Date of Insertion: Aug 04, 2017 Vascular Central Line Catheter: No A/P Assessment and Plan Fever , recurrent, resolved Chest x-ray indicating right midlung airspace opacity suspicious for infectious process Sputum culture only indicated heavy growth normal respiratory kateryna Influenza testing was negative C. difficile testing negative Blood cultures did indicate 06/29 positive with staph species coag negative. Likely contamination Urine culture showing Daphney parapsilosis, which per infectious disease is secondary to chronic Kowalski Status post fluconazole 150 mg by mouth single dose Infectious disease was reconsulted Patient has been continued on vancomycin, imipenem We'll hold Reglan at this time due to possible neuroleptic malignant syndrome and continue monitor for fevers Neuro-Behcet, history of frontal lobe CVA, encephalopathy, history of meningitis , Blurred vision/double vision, urinary retention, chronic No new changes on imaging. Patient was followed by neurology. Aphasic at baseline. Continue Imuran, prednisone EEG shows mild to moderate slowing at times of various depending on the epoch , there was no epileptic activity seen Continue PT/OT Palliative care still following the patient. 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 07/25/17, next time would be 08/15/17 --Decreased oral intake and dysphagia on initial presentation Speech therapy evaluated patient. S/P barium swallow. Patient with severe dysphagia. GI was consulted and PEG tube was placed. Dietary reconsulted for bolus feeding recommendations Records indicate that patient been having vomiting episodes with bolus feeding Continue bolus feeding per dietary recommendations Coccyx decubitus. Ankle ulceration Wound care nurse is following the patient for management Patient with specialty bed Mood disorder, depression Psychiatry evaluated patient and made recommendations Prozac 40 mg daily Seroquel 25 mg at bedtime Diabetes Glucose continues to be well controlled, DVT Prophylaxis: Lovenox, TEDs/SCD Discharge Planning Case management for discharge planning, Ede Richardson Aug 09, 2017 09:16
[2017-08-09] MEDS: SENNOSIDES SYRUP 8.8 MG/5 ML CUP PEG SCH (10:02)
[2017-08-09] MEDS: LANSOPRAZOLE SOLUTAB 30 MG TAB PEG SCH ×2 (10:03→23:05)
[2017-08-09] MEDS: LACTOBACILLUS ACIDOPHILUS TAB PEG SCH ×2 (10:03→23:04)
[2017-08-09] MEDS: predniSONE 20 MG TAB PEG SCH (10:04)
[2017-08-09] MEDS: FLUoxetine HCL LIQUID 20 MG/5 ML CUP PEG SCH (10:05)
[2017-08-09] MEDS: ENOXAPARIN SODIUM 40 MG/0.4 ML SYRINGE SQ SCH (10:05)
[2017-08-09] MEDS: JUVEN POWDER 1 PACK G-TUBE SCH ×2 (10:05→21:00)
[2017-08-10 01:31] VITALS: BP 115/82; PULSE 75; RESP 24; TEMP 98; O2SAT 96
[2017-08-10] MEDS: azaTHIOprine 50 MG TAB PEG SCH ×2 (05:30→18:12)
[2017-08-10 07:50] VITALS: BP 120/85; PULSE 87; RESP 16; TEMP 97.8; O2SAT 100
[2017-08-10] MEDS: SENNOSIDES SYRUP 8.8 MG/5 ML CUP PEG SCH (09:00)
[2017-08-10] MEDS: JUVEN POWDER 1 PACK G-TUBE SCH ×2 (09:00→21:54)
--- NOTE | 2017-08-10 09:13 | HHI.PR ---
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 Patient denies any new complaints. Did notify rifle case repairer that patient no longer on IV antibiotics. Discharge planning resumed. Objective Vitals Vital Signs Date Time Temp Pulse Resp B/P (MAP) Pulse Ox O2 Delivery O2 Flow Rate FiO2 08/10/17 01:31 98.0 75 24 115/82 (93) 96 08/09/17 20:29 98.9 77 24 120/87 (98) 94 08/09/17 20:00 Room Air 08/09/17 19:50 96 21 08/09/17 16:07 97.5 83 18 110/79 (89) 95 08/09/17 16:03 98 21 08/09/17 11:44 97.4 89 17 129/98 (108) 94 08/09/17 10:03 Nasal Cannula I/O 08/09/17 08/09/17 08/09/17 08/10/17 08/10/17 08/10/17 06:59 14:59 22:59 06:59 14:59 22:59 Intake Total 1155 ml 200 ml 1270 ml Output Total 700 ml 1150 ml 600 ml Balance 455 ml 200 ml 120 ml -600 ml IV Total 200 ml Tube Feeding 480 ml 720 ml Tube Irrigant 675 ml 550 ml Output Urine Total 700 ml 1150 ml 600 ml # Bowel Movements 1 1 Result Diagram: 08/07/17 0720 08/09/17 0445 Objective Remarks GENERAL: Well-developed, cachectic and contracted. HEENT: Head is normocephalic without any lesions or masses noted. Facial features are symmetric. Eyes: Extraocular muscles are intact. Conjunctivae were clear. NECK: Trachea midline no deviation. CARDIAC: Regular rhythm, tachycardia noted. S1/S2 are heard. No murmurs gallops or rubs. LUNGS: Clear to auscultation bilaterally. No wheeze, rhonchi or rales. No use of accessory muscles on inspiration or expiration. ABDOMEN: Soft, nontender. Nondistended. Bowel sounds heard in all 4 quadrants. No organomegaly or masses. Negative rebound, negative guarding. PEG tube noted without any excoriation. EXTREMITIES: No edema, pulses are equal bilaterally. No cyanosis or clubbing. Procedures 07/19/16 EGD with PEG tube placement 09/27/16 colonoscopy Urinary Catheter: Yes Assessment to: Continue Kowalski insert reason: Obstruction/Retention Date of Insertion: Aug 04, 2017 Vascular Central Line Catheter: No A/P Assessment and Plan Fever , recurrent, resolved Chest x-ray indicating right midlung airspace opacity suspicious for infectious process Sputum culture only indicated heavy growth normal respiratory kateryna Influenza testing was negative C. difficile testing negative Blood cultures did indicate 06/29 positive with staph species coag negative. Contamination Urine culture showing Daphney parapsilosis, which per infectious disease is secondary to chronic Kowalski Status post fluconazole 150 mg by mouth single dose Infectious disease was reconsulted Discuss with infectious disease who indicated he can discontinue all antibiotics We'll hold Reglan/Seroquel at this time due to possible neuroleptic malignant syndrome and continue monitor for fevers Neuro-Behcet, history of frontal lobe CVA, encephalopathy, history of meningitis , Blurred vision/double vision, urinary retention, chronic No new changes on imaging. Patient was followed by neurology. Aphasic at baseline. Continue Imuran, prednisone EEG shows mild to moderate slowing at times of various depending on the epoch , there was no epileptic activity seen Continue PT/OT Palliative care still following the patient. 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 07/25/17, next time would be 08/15/17 --Decreased oral intake and dysphagia on initial presentation Speech therapy evaluated patient. S/P barium swallow. Patient with severe dysphagia. GI was consulted and PEG tube was placed. Dietary reconsulted for bolus feeding recommendations Records indicate that patient been having vomiting episodes with bolus feeding Continue bolus feeding per dietary recommendations Coccyx decubitus. Ankle ulceration Wound care nurse is following the patient for management Patient with specialty bed Mood disorder, depression Psychiatry evaluated patient and made recommendations Prozac 40 mg daily Seroquel 25 mg at bedtime Diabetes Glucose continues to be well controlled, DVT Prophylaxis: Lovenox, TEDs/SCD Records reviewed. No change in current treatment plan. Awaiting case management for discharge planning. Discharge Planning Case management for discharge planning, Ede Richardson Aug 10, 2017 09:13
[2017-08-10 11:50] VITALS: BP 122/87; PULSE 96; RESP 16; TEMP 98.2; O2SAT 94
[2017-08-10] MEDS: FLUoxetine HCL LIQUID 20 MG/5 ML CUP PEG SCH (13:38)
[2017-08-10] MEDS: predniSONE 20 MG TAB PEG SCH (13:38)
[2017-08-10] MEDS: ENOXAPARIN SODIUM 40 MG/0.4 ML SYRINGE SQ SCH (13:38)
[2017-08-10] MEDS: LACTOBACILLUS ACIDOPHILUS TAB PEG SCH ×2 (13:38→21:51)
[2017-08-10] MEDS: LANSOPRAZOLE SOLUTAB 30 MG TAB PEG SCH ×2 (13:38→21:51)
[2017-08-10 15:27] VITALS: BP 116/83; PULSE 85; RESP 16; TEMP 96.9; O2SAT 94
[2017-08-10 20:00] VITALS: BP 128/79; PULSE 79; RESP 18; TEMP 97.6; O2SAT 96
[2017-08-10 20:03] VITALS: O2SAT 96
[2017-08-11] VITALS: BP 122/75; PULSE 76; RESP 17; TEMP 97.8; O2SAT 99
[2017-08-11 04:00] VITALS: BP 125/75; PULSE 78; RESP 18; TEMP 97.7; O2SAT 96
[2017-08-11] MEDS: azaTHIOprine 50 MG TAB PEG SCH ×2 (05:45→17:34)
[2017-08-11 06:46] LABS: CREATININE 0.61 MG/DL (0.60-1.30)
[2017-08-11 08:00] VITALS: BP 112/76; PULSE 119; RESP 20; TEMP 97.3; O2SAT 93
[2017-08-11] MEDS: JUVEN POWDER 1 PACK G-TUBE SCH ×2 (09:00→21:53)
--- NOTE | 2017-08-11 10:12 | HHI.IDPN ---
Subjective Subjective Remarks Chart reviewed is a 46 AAM with Neuro Behcet's disease, difficult placement and not safe discharge so continues to reside at [facility]. Abx were stopped No fevers x 1 week More alert Antibiotics none Lines Line sites with no e.o infection- peripheral line Past Medical History reviewed Allergies: Uncoded Allergies: ADHESIVE TAPE (Allergy, Severe, 09/21/16) BLISTERS Objective . Vital Signs Date Time Temp Pulse Resp B/P (MAP) Pulse Ox O2 Delivery O2 Flow Rate FiO2 08/11/17 08:00 97.3 119 20 112/76 (88) 93 08/11/17 04:58 Room Air 08/11/17 04:00 97.7 78 18 125/75 (92) 96 08/11/17 00:00 97.8 76 17 122/75 (91) 99 08/10/17 20:03 96 21 08/10/17 20:00 97.6 79 18 128/79 (95) 96 08/10/17 15:27 96.9 85 16 116/83 (94) 94 08/10/17 12:52 Room Air 1.00 21 08/10/17 11:50 98.2 96 16 122/87 (99) 94 . Laboratory Tests Test 08/11/17 06:15 Creatinine 0.61 MG/DL Estimat Glomerular Filtration Rate 173 ML/MIN Imaging Last Impressions Chest X-Ray 08/03/17 0000 Signed Impressions: Service Date/Time: July 01:44 - CONCLUSION: Mild airspace opacity in the right midlung zone suspicious for an infectious process given the clinical history. Suggest followup imaging following appropriate therapy to confirm resolution. Josafat Garrido MD Abdomen X-Ray 07/25/17 0000 Signed Impressions: Service Date/Time: Tuesday, July 25, 2017 13:11 - CONCLUSION: 1. Normal bowel gas pattern. 2. Percutaneous gastrostomy tube. Gen Potter MD Hip Aspiration/Injection 10/08/16 0000 Signed Impressions: Service Date/Time: Tuesday, October 11, 2016 13:41 - CONCLUSION: Uncomplicated aspiration as above. Minimal fluid on the right. No identifiable fluid on the left Clayton Max MD Lower Extremity Ultrasound 10/06/16 0000 Signed Impressions: Service Date/Time: September 17:29 - CONCLUSION: Normal examination. Josafat Meyer MD CT Angiography 10/06/16 0000 Signed Impressions: Service Date/Time: September 20:31 - CONCLUSION: Minimal right upper lobe infiltrate and basilar atelectasis. No evidence of pulmonary embolism.. Josafat Meyer MD Abdomen/Pelvis CT 10/06/16 Signed Impressions: Service Date/Time: September 20:31 - CONCLUSION: No evidence of pelvic abscess. Josafat Meyer MD Upper Extremity Ultrasound 09/28/16 Signed Impressions: Service Date/Time: Wednesday, September 28, 2016 19:15 - CONCLUSION: 1. Occlusive superficial thrombosis in the left cephalic vein near the antecubital fossa. No deep venous thrombosis. Sumit Bourgeois MD Renal Ultrasound 08/28/16 Signed Impressions: Service Date/Time: Sunday, August 28, 2016 20:03 - CONCLUSION: Mild increased echotexture of both kidneys. Baldev Vu MD Lumbar Puncture Fluoroscopy 08/17/16 0000 Signed Impressions: Service Date/Time: Wednesday, August 17, 2016 12:26 - CONCLUSION: Uncomplicated fluoroscopically guided lumbar puncture. Vishal Beckford Jr., MD Brain MRI 08/17/16 0000 Signed Impressions: Service Date/Time: Wednesday, August 17, 2016 13:28 - CONCLUSION: Remote long-standing areas of abnormality in the brainstem and middle cerebellar peduncle consistent with remote infarcts or contusion. No acute intracranial abnormality. Chacho Bright MD Head CT 08/16/16 0000 Signed Impressions: Service Date/Time: Tuesday, August 16, 2016 09:55 - CONCLUSION: Chronic ischemic changes left frontal lobe possibly from evidence of previous ventriculostomy placement, unchanged. No acute intracranial abnormality. Gen Potter MD Modified Barium Swallow 08/15/16 0000 Signed Impressions: Service Date/Time: Monday, August 15, 2016 00:00 - CONCLUSION: See report above and speech pathology report Chacho Bright MD Physical Exam GENERAL: Awake , chronically ill appearing patient. Responding better today SKIN: Old scars on arms. EYES: Pt. No scleral icterus. No injection or drainage. ENT: moist mucosae drooling. Significant oral secretions CARDIOVASCULAR: HS audible. No murmur. RESPIRATORY:. Breath sounds equal bilaterally. Coarse rhonchi equal GASTROINTESTINAL: Abdomen soft, non-tender, minimally distended. Has a Peg : maurice in place with clear yellow urine MUSCULOSKELETAL: Extremities without clubbing, cyanosis, or edema. Wasting and contractures. Assessment & Plan Remarks Assessment & Plan Diagnosis: (1) Neurologic type Behcet's syndrome ICD Codes: M35.2 - Behcet's disease Status: Chronic (2) Fever: resolved - abx stopped ? PNA - grew nl kateryna in sputum; previously ESBL in sputum Staph Warneri (coag negative staph ) bacteremia),, low grade - doubt clinical significannce ICD Codes: R50.9 - Fever, unspecified Status: Acute Plan: Reviewed cultures Patient now afebrile Continue the IV Vancomycin and Imipenem for now (3) Leucocytosis ICD Codes: D72.829 - Elevated white blood cell count, unspecified Status: Acute Plan: Improved - agree with stopping abx monitor off abx dw primary team Margie Valdivia MD Aug 11, 2017 10:12
[2017-08-11] MEDS: SENNOSIDES SYRUP 8.8 MG/5 ML CUP PEG SCH (11:32)
[2017-08-11] MEDS: ENOXAPARIN SODIUM 40 MG/0.4 ML SYRINGE SQ SCH (11:32)
[2017-08-11] MEDS: LACTOBACILLUS ACIDOPHILUS TAB PEG SCH ×2 (11:32→21:53)
[2017-08-11] MEDS: FLUoxetine HCL LIQUID 20 MG/5 ML CUP PEG SCH (11:32)
[2017-08-11] MEDS: LANSOPRAZOLE SOLUTAB 30 MG TAB PEG SCH ×2 (11:32→21:53)
[2017-08-11] MEDS: predniSONE 20 MG TAB PEG SCH (11:32)
--- NOTE | 2017-08-11 11:37 | HHI.PR ---
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 Patient is doing well at this time. Denies any new complaints. Has remained afebrile since discontinuation of antibiotics. Nursing staff does not indicate any change in clinical status. Objective Vitals Vital Signs Date Time Temp Pulse Resp B/P (MAP) Pulse Ox O2 Delivery O2 Flow Rate FiO2 08/11/17 08:00 97.3 119 20 112/76 (88) 93 08/11/17 04:58 Room Air 08/11/17 04:00 97.7 78 18 125/75 (92) 96 08/11/17 00:00 97.8 76 17 122/75 (91) 99 08/10/17 20:03 96 21 08/10/17 20:00 97.6 79 18 128/79 (95) 96 08/10/17 15:27 96.9 85 16 116/83 (94) 94 08/10/17 12:52 Room Air 1.00 21 08/10/17 11:50 98.2 96 16 122/87 (99) 94 I/O 08/10/17 08/10/17 08/10/17 08/11/17 08/11/17 08/11/17 07:00 15:00 23:00 07:00 15:00 23:00 Intake Total 480 ml Output Total 600 ml 500 ml 600 ml Balance -600 ml 480 ml -500 ml -600 ml Oral Supplement 480 ml Output Urine Total 600 ml 500 ml 600 ml # Bowel Movements 0 Result Diagram: 08/07/17 0720 08/11/17 0615 Objective Remarks GENERAL: Well-developed, cachectic and contracted. HEENT: Head is normocephalic without any lesions or masses noted. Facial features are symmetric. Eyes: Extraocular muscles are intact. Conjunctivae were clear. NECK: Trachea midline no deviation. CARDIAC: Regular rhythm, tachycardia noted. S1/S2 are heard. No murmurs gallops or rubs. LUNGS: Clear to auscultation bilaterally. No wheeze, rhonchi or rales. No use of accessory muscles on inspiration or expiration. ABDOMEN: Soft, nontender. Nondistended. Bowel sounds heard in all 4 quadrants. No organomegaly or masses. Negative rebound, negative guarding. PEG tube noted without any excoriation. EXTREMITIES: No edema, pulses are equal bilaterally. No cyanosis or clubbing. Procedures 07/19/16 EGD with PEG tube placement 09/27/16 colonoscopy Urinary Catheter: Yes Assessment to: Continue Kowalski insert reason: Obstruction/Retention Date of Insertion: Aug 04, 2017 Vascular Central Line Catheter: No A/P Assessment and Plan Fever , recurrent, resolved Chest x-ray indicating right midlung airspace opacity suspicious for infectious process Sputum culture only indicated heavy growth normal respiratory kateryna Influenza testing was negative C. difficile testing negative Blood cultures did indicate 06/29 positive with staph species coag negative. Contamination Urine culture showing Daphney parapsilosis, which per infectious disease is secondary to chronic Kowalski Status post fluconazole 150 mg by mouth single dose Infectious disease was reconsulted Discuss with infectious disease who indicated he can discontinue all antibiotics We'll hold Reglan/Seroquel at this time due to possible neuroleptic malignant syndrome and continue monitor for fevers Neuro-Behcet, history of frontal lobe CVA, encephalopathy, history of meningitis , Blurred vision/double vision, urinary retention, chronic No new changes on imaging. Patient was followed by neurology. Aphasic at baseline. Continue Imuran, prednisone EEG shows mild to moderate slowing at times of various depending on the epoch , there was no epileptic activity seen Continue PT/OT Palliative care still following the patient. 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 07/25/17, next time would be 08/15/17 --Decreased oral intake and dysphagia on initial presentation Speech therapy evaluated patient. S/P barium swallow. Patient with severe dysphagia. GI was consulted and PEG tube was placed. Dietary reconsulted for bolus feeding recommendations Records indicate that patient been having vomiting episodes with bolus feeding Continue bolus feeding per dietary recommendations Coccyx decubitus. Ankle ulceration Wound care nurse is following the patient for management Patient with specialty bed Mood disorder, depression Psychiatry evaluated patient and made recommendations Prozac 40 mg daily Seroquel 25 mg at bedtime Diabetes Glucose continues to be well controlled, DVT Prophylaxis: Lovenox, TEDs/SCD Records reviewed. Awaiting case management for discharge planning. No change in current treatment plan. Discharge Planning Scheduled case management yesterday, indicating that patient can possibly discharge by latest Monday back to [place] with family Ede Richardson Aug 11, 2017 11:37
[2017-08-11 12:00] VITALS: BP 123/95; PULSE 95; RESP 20; TEMP 97.5; O2SAT 93
[2017-08-11 16:00] VITALS: BP 109/83; PULSE 77; RESP 20; TEMP 97.5; O2SAT 92
[2017-08-12 05:19] VITALS: BP 129/76; PULSE 89; RESP 20; TEMP 98.9; O2SAT 97
[2017-08-12] MEDS: azaTHIOprine 50 MG TAB PEG SCH ×2 (06:05→16:50)
[2017-08-12 08:00] VITALS: BP 119/83; PULSE 86; RESP 22; TEMP 98.7; O2SAT 95
--- NOTE | 2017-08-12 08:30 | HHI.PR ---
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 Patient denies any new complaints. No change in clinical status. Awaiting discharge planning Objective Vitals Vital Signs Date Time Temp Pulse Resp B/P (MAP) Pulse Ox O2 Delivery O2 Flow Rate FiO2 08/12/17 05:19 98.9 89 20 129/76 (93) 97 08/11/17 20:00 Room Air 08/11/17 16:00 97.5 77 20 109/83 (92) 92 08/11/17 13:51 Room Air 1.00 21 08/11/17 12:00 97.5 95 20 123/95 (104) 93 I/O 08/11/17 08/11/17 08/11/17 08/12/17 08/12/17 08/12/17 07:00 15:00 23:00 07:00 15:00 23:00 Output Total 600 ml 400 ml 650 ml Balance -600 ml -400 ml -650 ml Output Urine Total 600 ml 400 ml 650 ml # Bowel Movements 1 Result Diagram: 08/11/17 0615 Objective Remarks GENERAL: Well-developed, cachectic and contracted. HEENT: Head is normocephalic without any lesions or masses noted. Facial features are symmetric. Eyes: Extraocular muscles are intact. Conjunctivae were clear. NECK: Trachea midline no deviation. CARDIAC: Regular rhythm, tachycardia noted. S1/S2 are heard. No murmurs gallops or rubs. LUNGS: Clear to auscultation bilaterally. No wheeze, rhonchi or rales. No use of accessory muscles on inspiration or expiration. ABDOMEN: Soft, nontender. Nondistended. Bowel sounds heard in all 4 quadrants. No organomegaly or masses. Negative rebound, negative guarding. PEG tube noted without any excoriation. EXTREMITIES: No edema, pulses are equal bilaterally. No cyanosis or clubbing. Procedures 07/19/16 EGD with PEG tube placement 09/27/16 colonoscopy Urinary Catheter: Yes Assessment to: Continue Kowalski insert reason: Obstruction/Retention Date of Insertion: Aug 04, 2017 Vascular Central Line Catheter: No A/P Assessment and Plan Fever , recurrent, resolved Chest x-ray indicating right midlung airspace opacity suspicious for infectious process Sputum culture only indicated heavy growth normal respiratory kateryna Influenza testing was negative C. difficile testing negative Blood cultures did indicate 1/4 positive with staph species coag negative. Contamination Urine culture showing Daphney parapsilosis, which per infectious disease is secondary to chronic Kowalski Status post fluconazole 150 mg by mouth single dose Infectious disease was reconsulted Discuss with infectious disease who indicated he can discontinue all antibiotics We'll hold Reglan/Seroquel at this time due to possible neuroleptic malignant syndrome and continue monitor for fevers Neuro-Behcet, history of frontal lobe CVA, encephalopathy, history of meningitis , Blurred vision/double vision, urinary retention, chronic No new changes on imaging. Patient was followed by neurology. Aphasic at baseline. Continue Imuran, prednisone EEG shows mild to moderate slowing at times of various depending on the epoch , there was no epileptic activity seen Continue PT/OT Palliative care still following the patient. 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 07/25/17, next time would be 08/15/17 --Decreased oral intake and dysphagia on initial presentation Speech therapy evaluated patient. S/P barium swallow. Patient with severe dysphagia. GI was consulted and PEG tube was placed. Dietary reconsulted for bolus feeding recommendations Records indicate that patient been having vomiting episodes with bolus feeding Continue bolus feeding per dietary recommendations Coccyx decubitus. Ankle ulceration Wound care nurse is following the patient for management Patient with specialty bed Mood disorder, depression Psychiatry evaluated patient and made recommendations Prozac 40 mg daily Seroquel 25 mg at bedtime Diabetes Glucose continues to be well controlled, DVT Prophylaxis: Lovenox, TEDs/SCD Records reviewed. No change in current treatment plan. Awaiting case management for discharge planning. Discharge Planning Plan for discharge on Monday08/14/17 Ede Richardson Aug 12, 2017 08:29
[2017-08-12] MEDS: SENNOSIDES SYRUP 8.8 MG/5 ML CUP PEG SCH (08:51)
[2017-08-12] MEDS: ENOXAPARIN SODIUM 40 MG/0.4 ML SYRINGE SQ SCH (08:51)
[2017-08-12] MEDS: predniSONE 20 MG TAB PEG SCH (08:51)
[2017-08-12] MEDS: FLUoxetine HCL LIQUID 20 MG/5 ML CUP PEG SCH (08:52)
[2017-08-12] MEDS: JUVEN POWDER 1 PACK G-TUBE SCH ×2 (08:52→21:00)
[2017-08-12] MEDS: LANSOPRAZOLE SOLUTAB 30 MG TAB PEG SCH ×2 (08:52→21:29)
[2017-08-12] MEDS: LACTOBACILLUS ACIDOPHILUS TAB PEG SCH ×2 (08:52→21:29)
[2017-08-12 12:00] VITALS: BP 124/80; PULSE 82; RESP 22; TEMP 98.6; O2SAT 96
[2017-08-12 20:09] VITALS: O2SAT 94
[2017-08-12 21:39] VITALS: BP 121/72; PULSE 87; RESP 20; TEMP 98.9; O2SAT 96
[2017-08-13] MEDS: azaTHIOprine 50 MG TAB PEG SCH ×2 (05:35→17:56)
--- NOTE | 2017-08-13 07:55 | HHI.PR ---
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 Patient is doing well. Denies any new complaints. Tolerating bolus feeding. Awaiting binder caser discharge planning. Possible discharge tomorrow. Objective Vitals Vital Signs Date Time Temp Pulse Resp B/P (MAP) Pulse Ox O2 Delivery O2 Flow Rate FiO2 08/12/17 21:39 98.9 08/12/17 21:39 98.9 87 20 121/72 (88) 96 08/12/17 20:09 94 21 08/12/17 12:00 98.6 82 22 124/80 (95) 96 08/12/17 10:00 Room Air 08/12/17 08:00 98.7 86 22 119/83 (95) 95 I/O 08/12/17 08/12/17 08/12/17 08/13/17 08/13/17 08/13/17 07:00 15:00 23:00 07:00 15:00 23:00 Output Total 650 ml 200 ml Balance -650 ml -200 ml Output Urine Total 650 ml 200 ml Bladder Scan Volume Amount 32 ml # Bowel Movements 0 0 Result Diagram: 08/11/17 0615 Objective Remarks GENERAL: Well-developed, cachectic and contracted. HEENT: Head is normocephalic without any lesions or masses noted. Facial features are symmetric. Eyes: Extraocular muscles are intact. Conjunctivae were clear. NECK: Trachea midline no deviation. CARDIAC: Regular rhythm, tachycardia noted. S1/S2 are heard. No murmurs gallops or rubs. LUNGS: Clear to auscultation bilaterally. No wheeze, rhonchi or rales. No use of accessory muscles on inspiration or expiration. ABDOMEN: Soft, nontender. Nondistended. Bowel sounds heard in all 4 quadrants. No organomegaly or masses. Negative rebound, negative guarding. PEG tube noted without any excoriation. EXTREMITIES: No edema, pulses are equal bilaterally. No cyanosis or clubbing. Procedures 07/19/16 EGD with PEG tube placement 09/27/16 colonoscopy Urinary Catheter: Yes Assessment to: Continue Kowalski insert reason: Obstruction/Retention Date of Insertion: Aug 04, 2017 Vascular Central Line Catheter: No A/P Assessment and Plan Fever , recurrent, resolved Chest x-ray indicating right midlung airspace opacity suspicious for infectious process Sputum culture only indicated heavy growth normal respiratory kateryna Influenza testing was negative C. difficile testing negative Blood cultures did indicate 1/4 positive with staph species coag negative. Contamination Urine culture showing Daphney parapsilosis, which per infectious disease is secondary to chronic Kowalski Status post fluconazole 150 mg by mouth single dose Infectious disease was reconsulted Discuss with infectious disease who indicated he can discontinue all antibiotics We'll hold Reglan/Seroquel at this time due to possible neuroleptic malignant syndrome and continue monitor for fevers Neuro-Behcet, history of frontal lobe CVA, encephalopathy, history of meningitis , Blurred vision/double vision, urinary retention, chronic No new changes on imaging. Patient was followed by neurology. Aphasic at baseline. Continue Imuran, prednisone EEG shows mild to moderate slowing at times of various depending on the epoch , there was no epileptic activity seen Continue PT/OT Palliative care still following the patient. 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 07/25/17, next time would be 08/15/17 --Decreased oral intake and dysphagia on initial presentation Speech therapy evaluated patient. S/P barium swallow. Patient with severe dysphagia. GI was consulted and PEG tube was placed. Dietary reconsulted for bolus feeding recommendations Records indicate that patient been having vomiting episodes with bolus feeding Continue bolus feeding per dietary recommendations Coccyx decubitus. Ankle ulceration Wound care nurse is following the patient for management Patient with specialty bed Mood disorder, depression Psychiatry evaluated patient and made recommendations Prozac 40 mg daily Seroquel 25 mg at bedtime Diabetes Glucose continues to be well controlled, DVT Prophylaxis: Lovenox, TEDs/SCD Records reviewed. Awaiting case management for discharge planning. No change in current treatment plan. Discharge Planning Plan for discharge on Monday08/14/17 Ede Richardson Aug 13, 2017 07:55
[2017-08-13 08:00] VITALS: BP 113/73; PULSE 92; RESP 22; TEMP 98.9; O2SAT 94; O2SAT 95
[2017-08-13] MEDS: ENOXAPARIN SODIUM 40 MG/0.4 ML SYRINGE SQ SCH (08:12)
[2017-08-13] MEDS: LANSOPRAZOLE SOLUTAB 30 MG TAB PEG SCH ×2 (08:12→22:43)
[2017-08-13] MEDS: FLUoxetine HCL LIQUID 20 MG/5 ML CUP PEG SCH (08:12)
[2017-08-13] MEDS: SENNOSIDES SYRUP 8.8 MG/5 ML CUP PEG SCH (08:12)
[2017-08-13] MEDS: predniSONE 20 MG TAB PEG SCH (08:12)
[2017-08-13] MEDS: JUVEN POWDER 1 PACK G-TUBE SCH ×2 (08:13→21:00)
[2017-08-13] MEDS: LACTOBACILLUS ACIDOPHILUS TAB PEG SCH ×2 (08:13→22:43)
[2017-08-13 08:50] LABS: CREATININE 0.76 MG/DL (0.60-1.30)
[2017-08-13 20:39] VITALS: BP 121/92; PULSE 81; RESP 24; TEMP 98.6; O2SAT 96
[2017-08-13 21:21] VITALS: O2SAT 96
[2017-08-14] VITALS (7 sets, daily range): BP systolic 115–126; BP diastolic 71–96; PULSE 81–105; RESP 17–20; TEMP 95.9–99.2; O2SAT 95–98
[2017-08-14] MEDS: azaTHIOprine 50 MG TAB PEG SCH ×2 (05:29→17:32)
--- NOTE | 2017-08-14 07:50 | HHI.PR ---
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 Patient resting in bed carefully. Denies any new complaints. Vital signs are stable, afebrile Objective Vitals Vital Signs Date Time Temp Pulse Resp B/P (MAP) Pulse Ox O2 Delivery O2 Flow Rate FiO2 08/14/17 05:14 98.5 105 17 115/95 (102) 98 08/13/17 21:21 96 21 08/13/17 20:39 98.6 81 24 121/92 (102) 96 08/13/17 08:00 98.9 92 22 113/73 (86) 94 08/13/17 08:00 95 21 I/O 08/13/17 08/13/17 08/13/17 08/14/17 08/14/17 08/14/17 07:00 15:00 23:00 07:00 15:00 23:00 Intake Total 1440 ml 840 ml Output Total 550 ml 900 ml Balance -550 ml 1440 ml -60 ml Tube Feeding 720 ml 480 ml Other 720 ml 360 ml Output Urine Total 550 ml 900 ml # Bowel Movements 0 0 1 Result Diagram: 08/13/17 0825 Objective Remarks GENERAL: Well-developed, cachectic and contracted. HEENT: Head is normocephalic without any lesions or masses noted. Facial features are symmetric. Eyes: Extraocular muscles are intact. Conjunctivae were clear. NECK: Trachea midline no deviation. CARDIAC: Regular rhythm, tachycardia noted. S1/S2 are heard. No murmurs gallops or rubs. LUNGS: Clear to auscultation bilaterally. No wheeze, rhonchi or rales. No use of accessory muscles on inspiration or expiration. ABDOMEN: Soft, nontender. Nondistended. Bowel sounds heard in all 4 quadrants. No organomegaly or masses. Negative rebound, negative guarding. PEG tube noted without any excoriation. EXTREMITIES: No edema, pulses are equal bilaterally. No cyanosis or clubbing. Procedures 07/19/16 EGD with PEG tube placement 09/27/16 colonoscopy Urinary Catheter: Yes Assessment to: Continue Kowalski insert reason: Obstruction/Retention Date of Insertion: Aug 04, 2017 Vascular Central Line Catheter: No A/P Assessment and Plan Fever , recurrent, resolved Chest x-ray indicating right midlung airspace opacity suspicious for infectious process Sputum culture only indicated heavy growth normal respiratory kateryna Influenza testing was negative C. difficile testing negative Blood cultures did indicate 1/4 positive with staph species coag negative. Contamination Urine culture showing Daphney parapsilosis, which per infectious disease is secondary to chronic Kowalski Status post fluconazole 150 mg by mouth single dose Infectious disease was reconsulted Discuss with infectious disease who indicated he can discontinue all antibiotics We'll hold Reglan/Seroquel at this time due to possible neuroleptic malignant syndrome and continue monitor for fevers Neuro-Behcet, history of frontal lobe CVA, encephalopathy, history of meningitis , Blurred vision/double vision, urinary retention, chronic No new changes on imaging. Patient was followed by neurology. Aphasic at baseline. Continue Imuran, prednisone EEG shows mild to moderate slowing at times of various depending on the epoch , there was no epileptic activity seen Continue PT/OT Palliative care still following the patient. 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 07/25/17, next time would be 08/15/17 --Decreased oral intake and dysphagia on initial presentation Speech therapy evaluated patient. S/P barium swallow. Patient with severe dysphagia. GI was consulted and PEG tube was placed. Dietary reconsulted for bolus feeding recommendations Records indicate that patient been having vomiting episodes with bolus feeding Continue bolus feeding per dietary recommendations Coccyx decubitus. Ankle ulceration Wound care nurse is following the patient for management Patient with specialty bed Mood disorder, depression Psychiatry evaluated patient and made recommendations Prozac 40 mg daily Seroquel 25 mg at bedtime Diabetes Glucose continues to be well controlled, DVT Prophylaxis: Lovenox, TEDs/SCD Records reviewed. No change in current treatment plan. Awaiting case management for discharge planning. Discharge Planning Plan for discharge on Monday08/14/17 Ede Richardson Aug 14, 2017 07:50
[2017-08-14] MEDS: ENOXAPARIN SODIUM 40 MG/0.4 ML SYRINGE SQ SCH (09:00)
[2017-08-14] MEDS: LACTOBACILLUS ACIDOPHILUS TAB PEG SCH ×2 (09:00→21:47)
[2017-08-14] MEDS: FLUoxetine HCL LIQUID 20 MG/5 ML CUP PEG SCH (09:00)
[2017-08-14] MEDS: predniSONE 20 MG TAB PEG SCH (09:00)
[2017-08-14] MEDS: JUVEN POWDER 1 PACK G-TUBE SCH ×2 (09:00→21:00)
[2017-08-14] MEDS: LANSOPRAZOLE SOLUTAB 30 MG TAB PEG SCH ×2 (09:00→21:47)
[2017-08-14] MEDS: SENNOSIDES SYRUP 8.8 MG/5 ML CUP PEG SCH (09:16)
[2017-08-15] MEDS: azaTHIOprine 50 MG TAB PEG SCH ×2 (05:44→16:53)
[2017-08-15 06:56] LABS: CREATININE 0.73 MG/DL (0.60-1.30)
[2017-08-15 08:00] VITALS: BP 124/74; PULSE 96; RESP 16; TEMP 96.5; O2SAT 99
[2017-08-15] MEDS: JUVEN POWDER 1 PACK G-TUBE SCH ×2 (09:00→21:00)
[2017-08-15] MEDS: ENOXAPARIN SODIUM 40 MG/0.4 ML SYRINGE SQ SCH (09:37)
[2017-08-15] MEDS: LANSOPRAZOLE SOLUTAB 30 MG TAB PEG SCH ×2 (09:37→21:37)
[2017-08-15] MEDS: FLUoxetine HCL LIQUID 20 MG/5 ML CUP PEG SCH (09:37)
[2017-08-15] MEDS: LACTOBACILLUS ACIDOPHILUS TAB PEG SCH ×2 (09:37→21:37)
[2017-08-15] MEDS: SENNOSIDES SYRUP 8.8 MG/5 ML CUP PEG SCH (09:37)
[2017-08-15] MEDS: predniSONE 20 MG TAB PEG SCH (09:37)
[2017-08-15] MEDS: HYOSCYAMINE SOLN 0.125 MG/ML 15 ML BTL PEG PRN (09:39)
--- NOTE | 2017-08-15 10:19 | HHI.PR ---
Subjective Remarks Follow-up neuro-Behcet's syndrome. Patient seen and examined, lying in bed comfortably. No acute distress. No reports of any changes overnight. Vital signs are stable. Objective Vitals Vital Signs Date Time Temp Pulse Resp B/P (MAP) Pulse Ox O2 Delivery O2 Flow Rate FiO2 08/14/17 21:36 98 08/14/17 20:00 98.0 81 20 122/96 (105) 95 08/14/17 17:55 95.9 83 18 126/87 (100) 08/14/17 17:47 95 08/14/17 12:00 98.2 98 118/82 (94) I/O 08/14/17 08/14/17 08/14/17 08/15/17 08/15/17 08/15/17 07:00 15:00 23:00 07:00 15:00 23:00 Intake Total 840 ml 1440 ml Output Total 900 ml 550 ml 725 ml Balance -60 ml 890 ml -725 ml Tube Feeding 480 ml 720 ml Other 360 ml 720 ml Output Urine Total 900 ml 550 ml 725 ml # Bowel Movements 1 0 Result Diagram: 08/15/17 0630 Imaging Last Impressions Chest X-Ray 08/03/17 0000 Signed Impressions: Service Date/Time: July 01:44 - CONCLUSION: Mild airspace opacity in the right midlung zone suspicious for an infectious process given the clinical history. Suggest followup imaging following appropriate therapy to confirm resolution. Josafat Garrido MD Abdomen X-Ray 07/25/17 0000 Signed Impressions: Service Date/Time: Tuesday, July 25, 2017 13:11 - CONCLUSION: 1. Normal bowel gas pattern. 2. Percutaneous gastrostomy tube. Gen Potter MD Hip Aspiration/Injection 10/08/16 0000 Signed Impressions: Service Date/Time: Tuesday, October 11, 2016 13:41 - CONCLUSION: Uncomplicated aspiration as above. Minimal fluid on the right. No identifiable fluid on the left Clayton Max MD Lower Extremity Ultrasound 10/06/16 0000 Signed Impressions: Service Date/Time: September 17:29 - CONCLUSION: Normal examination. Josafat Meyer MD CT Angiography 10/06/16 0000 Signed Impressions: Service Date/Time: September 20:31 - CONCLUSION: Minimal right upper lobe infiltrate and basilar atelectasis. No evidence of pulmonary embolism.. Josafat Meyer MD Abdomen/Pelvis CT 10/06/16 0000 Signed Impressions: Service Date/Time: September 20:31 - CONCLUSION: No evidence of pelvic abscess. Josafat Meyer MD Upper Extremity Ultrasound 09/28/16 Signed Impressions: Service Date/Time: Wednesday, September 28, 2016 19:15 - CONCLUSION: 1. Occlusive superficial thrombosis in the left cephalic vein near the antecubital fossa. No deep venous thrombosis. Sumit Bourgeois MD Renal Ultrasound 08/28/16 Signed Impressions: Service Date/Time: Sunday, August 28, 2016 20:03 - CONCLUSION: Mild increased echotexture of both kidneys. Baldev Vu MD Lumbar Puncture Fluoroscopy 08/17/16 0000 Signed Impressions: Service Date/Time: Wednesday, August 17, 2016 12:26 - CONCLUSION: Uncomplicated fluoroscopically guided lumbar puncture. Vishal Beckford Jr., MD Brain MRI 08/17/16 0000 Signed Impressions: Service Date/Time: Wednesday, August 17, 2016 13:28 - CONCLUSION: Remote long-standing areas of abnormality in the brainstem and middle cerebellar peduncle consistent with remote infarcts or contusion. No acute intracranial abnormality. Chacho Bright MD Head CT 08/16/16 0000 Signed Impressions: Service Date/Time: Tuesday, August 16, 2016 09:55 - CONCLUSION: Chronic ischemic changes left frontal lobe possibly from evidence of previous ventriculostomy placement, unchanged. No acute intracranial abnormality. Gen Potter MD Modified Barium Swallow 08/15/16 0000 Signed Impressions: Service Date/Time: Monday, August 15, 2016 00:00 - CONCLUSION: See report above and speech pathology report Chacho Bright MD Objective Remarks GENERAL: Well-developed cachectic and contracted male patient in NAD. Awake and alert. Nodding appropriately. SKIN: Warm and dry. No rash. HEENT: Normocephalic. Atraumatic. Pupils equal and round. No scleral icterus. No injection or drainage. No nasal bleeding or discharge. Mucous membranes pink and moist. NECK: Supple. Trachea midline. CARDIOVASCULAR: Regular rate and rhythm. S1, S2 noted. No murmur appreciated. RESPIRATORY: No accessory muscle use. Course and rhonchi throughout lung lawson. Breath sounds equal bilaterally. GASTROINTESTINAL: Abdomen soft, non-tender, nondistended. Normoactive bowel sounds x4. No guarding. PEG tube noted, no erythema or drainage from site, c/d/ i. MUSCULOSKELETAL: No obvious deformities. Extremities without clubbing, cyanosis , or edema. 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's disease Status: Chronic (2) Hospital acquired PNA ICD Code: J18.9 - Pneumonia, unspecified organism Status: Resolved (3) Sepsis ICD Code: A41.9 - Sepsis, unspecified organism Status: Resolved (4) Encephalopathy ICD Code: G93.40 - Encephalopathy, unspecified Status: Resolved (5) GI bleed ICD Code: K92.2 - Gastrointestinal hemorrhage, unspecified Status: Resolved (6) HCAP (healthcare-associated pneumonia) ICD Code: J18.9 - Pneumonia, unspecified organism Status: Resolved (7) UTI (urinary tract infection) ICD Code: N39.0 - Urinary tract infection, site not specified Status: Resolved (8) Leucocytosis ICD Code: D72.829 - Elevated white blood cell count, unspecified Status: Acute (9) Fever ICD Code: R50.9 - Fever, unspecified Status: Acute (10) Effusion of hip joint ICD Code: M25.459 - Effusion, unspecified hip Status: Acute (11) 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 difficile testing negative Blood cultures did indicate 1/4 positive with staph species coag negative. Contamination. Urine culture showing Daphney parapsilosis, which per infectious disease is secondary to chronic Kowalski. Status post fluconazole 150 mg by mouth single dose. Infectious disease was reconsulted Discuss with infectious disease who indicated he can discontinue all antibiotics Will hold Reglan/Seroquel at this time due to possible neuroleptic malignant syndrome and continue monitor for fevers Neuro-Behcet, history of frontal lobe CVA, encephalopathy, history of meningitis , Blurred vision/double vision, urinary retention, chronic No new changes on imaging. Patient was followed by neurology. Aphasic at baseline. Continue Imuran, prednisone EEG shows mild to moderate slowing at times of various depending on the epoch , there was no epileptic activity seen Continue PT/OT Palliative care still following the patient. 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 07/25/17, next time would be 08/15/17 --Decreased oral intake and dysphagia on initial presentation Speech therapy evaluated patient. S/P barium swallow. Patient with severe dysphagia. GI was consulted and PEG tube was placed. Dietary reconsulted for bolus feeding recommendations Records indicate that patient been having vomiting episodes with bolus feeding Continue bolus feeding per dietary recommendations Coccyx decubitus. Ankle ulceration Wound care nurse is following the patient for management Patient with specialty bed Mood disorder, depression Psychiatry evaluated patient and made recommendations Prozac 40 mg daily Diabetes Glucose continues to be well controlled, DVT Prophylaxis: Lovenox, TEDs/SCD Records reviewed. No change in current treatment plan. Awaiting case management for discharge planning. Possible discharge tomorrow. Discharge Planning Case management assisting. Problem Qualifiers (1) GI bleed: (2) UTI (urinary tract infection): (3) Fever: (4) Effusion of hip joint: Dotty Pacheco Aug 15, 2017 10:19
[2017-08-15 20:00] VITALS: BP 119/87; PULSE 78; RESP 18; TEMP 96.5; O2SAT 94
[2017-08-15 21:44] VITALS: O2SAT 95
[~2017-08-16] VITALS: Ht 182.9 cm; Wt 70.3 kg
[2017-08-16] MEDS: azaTHIOprine 50 MG TAB PEG SCH (05:19)
[2017-08-16] MEDS: FLUoxetine HCL LIQUID 20 MG/5 ML CUP PEG SCH (08:52)
[2017-08-16] MEDS: predniSONE 20 MG TAB PEG SCH (08:52)
[2017-08-16] MEDS: LANSOPRAZOLE SOLUTAB 30 MG TAB PEG SCH (08:52)
[2017-08-16] MEDS: LACTOBACILLUS ACIDOPHILUS TAB PEG SCH (08:52)
[2017-08-16] MEDS: SENNOSIDES SYRUP 8.8 MG/5 ML CUP PEG SCH (08:53)
[2017-08-16] MEDS: ENOXAPARIN SODIUM 40 MG/0.4 ML SYRINGE SQ SCH (08:53)
[2017-08-16] MEDS: HYOSCYAMINE SOLN 0.125 MG/ML 15 ML BTL PEG PRN (08:54)
[2017-08-16] MEDS: JUVEN POWDER 1 PACK G-TUBE SCH (09:00)
--- NOTE | 2017-08-16 09:05 | HHI.PR ---
Subjective Remarks Follow up Neuro-Becht's syndrome. Patient seen and examined, lying in bed comfortably. No reports of any acute events overnight. Denies any pain or discomfort. Patient aware of plan to DC today. Appears to be in good spirits. VSS. AFebrile. Tolerating TF well. No new changes in clinical condition. Objective Vitals Vital Signs Date Time Temp Pulse Resp B/P (MAP) Pulse Ox O2 Delivery O2 Flow Rate FiO2 08/15/17 21:44 95 21 08/15/17 20:00 96.5 78 18 119/87 (98) 94 I/O 08/15/17 08/15/17 08/15/17 08/16/17 08/16/17 08/16/17 07:00 15:00 23:00 07:00 15:00 23:00 Intake Total 1680 ml 0 ml Output Total 725 ml 450 ml 700 ml Balance -725 ml 1230 ml -700 ml Intake Oral 0 ml Tube Feeding 720 ml Tube Irrigant 480 ml Other 480 ml Output Urine Total 725 ml 450 ml 700 ml # Bowel Movements 0 0 1 Result Diagram: 08/15/17 0630 Imaging Last Impressions Chest X-Ray 08/03/17 0000 Signed Impressions: Service Date/Time: July 01:44 - CONCLUSION: Mild airspace opacity in the right midlung zone suspicious for an infectious process given the clinical history. Suggest followup imaging following appropriate therapy to confirm resolution. Josafat Garrido MD Abdomen X-Ray 07/25/17 0000 Signed Impressions: Service Date/Time: Tuesday, July 25, 2017 13:11 - CONCLUSION: 1. Normal bowel gas pattern. 2. Percutaneous gastrostomy tube. Gen Potter MD Hip Aspiration/Injection 10/08/16 0000 Signed Impressions: Service Date/Time: Tuesday, October 11, 2016 13:41 - CONCLUSION: Uncomplicated aspiration as above. Minimal fluid on the right. No identifiable fluid on the left Clayton Max MD Lower Extremity Ultrasound 10/06/16 0000 Signed Impressions: Service Date/Time: September 17:29 - CONCLUSION: Normal examination. Josafat Myeer MD CT Angiography 10/06/16 0000 Signed Impressions: Service Date/Time: September 20:31 - CONCLUSION: Minimal right upper lobe infiltrate and basilar atelectasis. No evidence of pulmonary embolism.. Josafat Meyer MD Abdomen/Pelvis CT 10/06/16 0000 Signed Impressions: Service Date/Time: September 20:31 - CONCLUSION: No evidence of pelvic abscess. Josafat Meyer MD Upper Extremity Ultrasound 09/28/16 Signed Impressions: Service Date/Time: Wednesday, September 28, 2016 19:15 - CONCLUSION: 1. Occlusive superficial thrombosis in the left cephalic vein near the antecubital fossa. No deep venous thrombosis. Sumit Bourgeois MD Renal Ultrasound 08/28/16 Signed Impressions: Service Date/Time: Sunday, August 28, 2016 20:03 - CONCLUSION: Mild increased echotexture of both kidneys. Baldev Vu MD Lumbar Puncture Fluoroscopy 08/17/16 0000 Signed Impressions: Service Date/Time: Wednesday, August 17, 2016 12:26 - CONCLUSION: Uncomplicated fluoroscopically guided lumbar puncture. Vishal Beckford Jr., MD Brain MRI 08/17/16 0000 Signed Impressions: Service Date/Time: Wednesday, August 17, 2016 13:28 - CONCLUSION: Remote long-standing areas of abnormality in the brainstem and middle cerebellar peduncle consistent with remote infarcts or contusion. No acute intracranial abnormality. Chacho Bright MD Head CT 08/16/16 0000 Signed Impressions: Service Date/Time: Tuesday, August 16, 2016 09:55 - CONCLUSION: Chronic ischemic changes left frontal lobe possibly from evidence of previous ventriculostomy placement, unchanged. No acute intracranial abnormality. Gen Potter MD Modified Barium Swallow 08/15/16 0000 Signed Impressions: Service Date/Time: Monday, August 15, 2016 00:00 - CONCLUSION: See report above and speech pathology report Chacho Bright MD Objective Remarks GENERAL: Well-developed cachectic and contracted male patient in NAD. Awake and alert. Nodding appropriately. SKIN: Warm and dry. No rash. HEENT: Normocephalic. Atraumatic. Pupils equal and round. No scleral icterus. No injection or drainage. No nasal bleeding or discharge. Mucous membranes pink and moist. NECK: Supple. Trachea midline. CARDIOVASCULAR: Regular rate and rhythm. S1, S2 noted. No murmur appreciated. RESPIRATORY: No accessory muscle use. Course and rhonchi throughout lung lawson. Breath sounds equal bilaterally. GASTROINTESTINAL: Abdomen soft, non-tender, nondistended. Normoactive bowel sounds x4. No guarding. PEG tube noted, no erythema or drainage from site, c/d/ i. MUSCULOSKELETAL: No obvious deformities. Extremities without clubbing, cyanosis , or edema. 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's disease Status: Chronic (2) Hospital acquired PNA ICD Code: J18.9 - Pneumonia, unspecified organism Status: Resolved (3) Sepsis ICD Code: A41.9 - Sepsis, unspecified organism Status: Resolved (4) Encephalopathy ICD Code: G93.40 - Encephalopathy, unspecified Status: Resolved (5) GI bleed ICD Code: K92.2 - Gastrointestinal hemorrhage, unspecified Status: Resolved (6) HCAP (healthcare-associated pneumonia) ICD Code: J18.9 - Pneumonia, unspecified organism Status: Resolved (7) UTI (urinary tract infection) ICD Code: N39.0 - Urinary tract infection, site not specified Status: Resolved (8) Leucocytosis ICD Code: D72.829 - Elevated white blood cell count, unspecified Status: Acute (9) Fever ICD Code: R50.9 - Fever, unspecified Status: Acute (10) Effusion of hip joint ICD Code: M25.459 - Effusion, unspecified hip Status: Acute (11) 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 Chest x-ray indicating right midlung airspace opacity suspicious for infectious process Sputum culture only indicated heavy growth normal respiratory kateryna Influenza testing was negative. C. difficile testing negative. Blood cultures did indicate 1/4 positive with staph species coag negative. Contamination. Urine culture showing Daphney parapsilosis, which per infectious disease is secondary to chronic Kowalski. Status post fluconazole 150 mg by mouth single dose. Infectious disease was reconsulted. Discuss with infectious disease who indicated he can discontinue all antibiotics. Will hold Reglan/Seroquel at this time due to possible neuroleptic malignant syndrome and continue monitor for fevers Neuro-Behcet, history of frontal lobe CVA, encephalopathy, history of meningitis , Blurred vision/double vision, urinary retention, chronic No new changes on imaging. Patient was followed by neurology. Aphasic at baseline. Continue Imuran, prednisone EEG shows mild to moderate slowing at times of various depending on the epoch , there was no epileptic activity seen Continue PT/OT Palliative care still following the patient. 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 07/25/17, next time would be 08/15/17 --Decreased oral intake and dysphagia on initial presentation Speech therapy evaluated patient. S/P barium swallow. Patient with severe dysphagia. GI was consulted and PEG tube was placed. Dietary reconsulted for bolus feeding recommendations Records indicate that patient been having vomiting episodes with bolus feeding Continue bolus feeding per dietary recommendations Coccyx decubitus. Ankle ulceration Wound care nurse is following the patient for management Patient with specialty bed Mood disorder, depression Psychiatry evaluated patient and made recommendations Prozac 40 mg daily Diabetes Glucose continues to be well controlled, DVT Prophylaxis: Lovenox, TEDs/SCD Records reviewed. No change in current treatment plan. Awaiting case management for discharge planning. Possible discharge tomorrow. Discharge Planning DC today at 1000 to [place]. Problem Qualifiers (1) GI bleed: (2) UTI (urinary tract infection): (3) Fever: (4) Effusion of hip joint: Dotty Pacheco Aug 16, 2017 09:05
[2017-08-16 09:20] VITALS: BP 128/84; PULSE 89; RESP 20; TEMP 98.6; O2SAT 94
[~2017-08-16 10:21] MED LIST: ACET650R RECTAL; ACETAMINOPHEN 1000 MG/100 ML VIAL IV ONE; ACETAMINOPHEN 325MG/HYDROcodone 7.5MG/15ML UDC PO PRN; ACETAMINOPHEN/HYDROcodone 325 MG/5 MG TAB PO PRN; ADENOSINE IV SOLN 3 MG/ML 2 ML VIAL IV PUSH ONE; ADENOSINE IV SOLN 3 MG/ML 2 ML VIAL ONE; AMPICILLIN 500 MG CAP PO SCH; ASP: Path resistant to other antimicrobials, culture proven PRN; ATENOLOL 25 MG TAB G-TUBE ONE; ATENOLOL 25 MG TAB PEG ONE; ATENOLOL 25 MG TAB PO ONE; ATOR20TA42 PO; ATROPINE SULFATE 1 MG/10 ML SYRINGE ONE; AZAT50 PEG; AZAT50 PO; CEFEPIME INJ 2,000 MG in SODIUM CHLORIDE 0.9% INJ 100 ML IV SCH; CENTTAB20 PO; CHIL100S14 PEG; CHLORHEXIDINE GLUCONATE 0.12% 15 ML CUP OROPHARYNG SCH; CHLORHEXIDINE GLUCONATE 2 % 1 PACK (2 CLOTHS) TOP PRN; CIPROFLOXACIN SUSP 500 MG/5 ML 100 ML BOTTLE PO SCH; CIPROFLOXACIN SUSP 500 MG/5 ML 100 ML BOTTLE SCH; CITA20 PO; DEXTROSE 50% IN WATER 50 ML VIAL(D50) IV PRN; DEXTROSE 50% IN WATER 50 ML VIAL(D50) IV PUSH PRN; DIATRIZOATE MEGLUM/DIATRIZOATE SOD 9 ML CUP PO ONE; DILTCD120 PO; DILTIAZEM 125 MG/NS 100 ML IV SCH; DILTIAZEM HCL 25 MG/5 ML VIAL IV ONE; DILTIAZEM HCL 25 MG/5 ML VIAL IV PUSH PRN; DILTIAZEM HCL 25 MG/5 ML VIAL ONE; DILTIAZEM INJ 125 MG in SODIUM CHLORIDE 0.9% INJ 100 ML IV PRN; DO NOT ADM ANY ANTICOAGULANT DRUGS PRN; ENOX30P SQ; ENOX40P SQ; EPINEPHrine HCL (1:10,000) 1 MG/10 ML SYRINGE ONE; ERTAPENEM SODIUM 1000 MG VIAL IM SCH; Eucerin Cream TOPICAL; FAMO20TA2 PO; FLUCONAZOLE 100 MG PREMIX BAG 50 ML IV SCH; FLUCONAZOLE 100 MG TAB PEG ONE; FLUCONAZOLE 100 MG TAB PO ONE; FLUCONAZOLE 200 MG TAB PO SCH; FLUO20SO PEG; FREE WATER G-TUBE SCH; FUROSEMIDE 20 MG/2 ML VIAL IV PUSH ONE; FUROSEMIDE 40 MG/4 ML VIAL IV PUSH ONE; GABA100C4 PO; GADODIAMIDE PF 287 MG/ML 5 ML VIAL (for RAD MRI) IV ONE; GLUCAGON 1 MG/ML VIAL OTHER PRN; GLUCOMTESTSTRIPS XX; HOSP BED2; HYOS0.1231 PEG; HYOSCYAMINE SOLN 0.125 MG/ML 15 ML BTL PO ONE; HYOSCYAMINE SOLN 0.125 MG/ML 15 ML BTL PO PRN; INSU1MIS86; IOHEXOL 350 MG/ML 10 ML VIAL (for RAD DIAG) IV ONE; JUVEPOW3 G-TUBE; KETAMINE HCL 500 MG/5 ML VIAL ONE; LACT PEG; LACTATED RINGER'S 1000 ML INJ 1,000 ML IV ONE; LEVEMIR SQ; LEVOFLOXACIN 750 MG TAB PO SCH; LIPI40TA PO; LISI10 PO; MAGNESIUM OXIDE 400 MG TAB PO PRN; MAGNESIUM SULFATE 1 GM PREMIX 100 ML IV ONE; MAGNESIUM SULFATE INJ 2 GM in SODIUM CHLORIDE 0.9% INJ 96 ML IV PRN; MAGNESIUM SULFATE INJ 4 GM in SODIUM CHLORIDE 0.9% INJ 92 ML IV PRN; MEROPENEM 1000 MG VIAL IV SCH; METOPROLOL TARTRATE 25 MG TAB G-TUBE ONE; METOPROLOL TARTRATE 25 MG TAB PEG ONE; METOPROLOL TARTRATE 25 MG TAB PO ONE; METOPROLOL TARTRATE 5 MG/5 ML VIAL IV PUSH ONE; METOPROLOL TARTRATE 5 MG/5 ML VIAL IV PUSH PRN; MIDAZOLAM HCL 2 MG/2 ML VIAL ONE; MISCELLANEOUS NURSING INFORMATION XX SCH; MISCELLANEOUS PHARMACY INFORMATION XX PRN; MORPHINE SULFATE 4 MG/ML INJ IV PUSH PRN; Metoclopramide Liq PEG; NALOXONE HCL 0.4 MG/ML AMP IV PRN; ONDA4SOL PEG; ONDANSETRON HCL 4 MG/2 ML VIAL IV PUSH ONE; ONDANSETRON HCL 4 MG/2 ML VIAL IVP PRN; PANTOPRAZOLE INJ 80 MG in SODIUM CHLORIDE 0.9% INJ 100 ML IV SCH; PANTOPRAZOLE SOD 40 MG DELAYED RELEASE TAB PO SCH; PEG (High)/E-LYTE SOLN 4000 ML BTL PEG ONE; PHARMACY ORDERED LAB ONE; PHARMACY ORDERED LAB XX ONE; PHENYLEPH/NS 1000 MCG/10 ML SYR IV ONE; PILL SPLITTER OTHER PRN; PIPERACIL-TAZO 4.5 GM PREMIX 100 ML IV ONE; PIPERACIL-TAZO 4.5 GM PREMIX 100 ML IV SCH; PNEUMOCOCCAL POLYVALENT INJ 25 MCG/0.5 ML SYR IM ONE; POLY17S PEG; POLY99.0 EACH EYE; POTASSIUM CHLOR 10 MEQ PREMIX 100 ML IV SCH; POTASSIUM CHLOR 20 MEQ PREMIX 100 ML IV PRN; POTASSIUM CHLOR 40 MEQ PREMIX 100 ML IV PRN; POTASSIUM CHLORIDE 10 MEQ CONTROLLED RELEASE TAB PO ONE; POTASSIUM CHLORIDE 20 MEQ PWD PACKET PO ONE; POTASSIUM CHLORIDE 25 MEQ EFFERVESCENT TAB PEG ONE; POTASSIUM CHLORIDE 25 MEQ EFFERVESCENT TAB PO ONE; POTASSIUM CHLORIDE 25 MEQ EFFERVESCENT TAB PO PRN; POTASSIUM PHOSPHATE INJ 30 MMOL in SODIUM CHLOR 0.9% 250 ML INJ 250 ML IV PRN; POTASSIUM PHOSPHATE MONOBASIC 500 MG TAB PO PRN; POTASSIUM PHOSPHATE MONOBASIC 500 MG TAB PO/TUBE PRN; PRED10 PO; PRED20 PEG; PREV30TA3 PEG; PROPOFOL 200 MG/20 ML AMP IV ONE; RANI150 PO; RESP: ALBUTEROL 2.5 MG/IPRATROPIUM 0.5 MG NEB (PRN) INH; RESP: ALBUTEROL 2.5 MG/IPRATROPIUM 0.5 MG NEB (PRN) NEB; RESP: ALBUTEROL 2.5 MG/IPRATROPIUM 0.5 MG NEB (SCH) NEB ONE; RESP: IPRATROPIUM 0.5 MG/2.5 ML NEB NEB PRN; SENNSYP PEG; SERO25TA PO; SODIUM CHLOR 0.45% 1000 ML INJ 1,000 ML IV SCH; SODIUM CHLOR 0.9% 1000 ML INJ 1,000 ML IV ONE; SODIUM CHLOR 0.9% 1000 ML INJ 1,000 ML IV SCH; SODIUM CHLOR 0.9% 1000 ML INJ 100 ML IV ONE; SODIUM CHLOR 0.9% IV SCH; SODIUM CHLORID 0.9% 500 ML INJ 500 ML IV ONE; SODIUM CHLORIDE 0.9% FLUSH 10 ML FLUSH IV FLUSH PRN; SODIUM CHLORIDE 0.9% FLUSH 5 ML FLUSH FLUSH PRN; SODIUM PHOSPHATE INJ 30 MMOL in SODIUM CHLOR 0.9% 250 ML INJ 240 ML IV PRN; TUB TRANSFER BENCH; VANCOMYCIN 1 GM/200 ML INJ 200 ML IV SCH; VANCOMYCIN 1,000 MG/NS 250 ML IV ONE; VANCOMYCIN 1,000 MG/NS 250 ML IV SCH; VANCOMYCIN INJ 1,000 MG in SODIUM CHLOR 0.9% 250 ML INJ 250 ML IV ONE; VANCOMYCIN INJ 1,000 MG in SODIUM CHLOR 0.9% 250 ML INJ 250 ML IV SCH; VANCOMYCIN INJ 1,200 MG in SODIUM CHLOR 0.9% 250 ML INJ 250 ML IV SCH; VANCOMYCIN INJ 1,250 MG in SODIUM CHLOR 0.9% 250 ML INJ 250 ML IV SCH; VANCOMYCIN INJ 1,300 MG in SODIUM CHLORID 0.9% 500 ML INJ 500 ML IV SCH; VANCOMYCIN IV SCH; VANCOMYCIN TROUGH ONE; Vancomycin Consult Pharmacy 1 EA OTHER SCH; WALKER ROLLING; WHEELCHAIR RENTAL RA; WHEEMIS3; [UNRECOGNIZED DRUG - OTHER] TOPICAL; cefTRIAXone INJ 1,000 MG in SODIUM CHLORIDE 0.9% INJ 100 ML IV SCH; diphenhydrAMINE HCL 50 MG/ML VIAL IV PUSH ONE
== END | disposition home or self-care (01) | DRG 871 ==
LOC: NEPE 08-13 09:06 → NEDA 08-13 13:44 → OBSVTOIN 08-13 13:44 → NEDH 08-13 18:54 → HOCA 08-13 20:31 → HCIN 08-16 12:58 → N05B 08-19 18:36 → PH5A 09-10 19:05 → PH3B 09-17 18:53 → PH5A 09-22 21:12 → PHICU 09-25 11:15 → HPAC 09-25 14:35 → HIME 09-25 15:17 → N04A 09-29 15:48 → HIMW 10-09 08:55 → N05B 10-15 12:32 → PH5A 11-04 18:44 → PH3A 03-02 17:13 → PHICU 04-26 14:48 → PH3B 04-30 12:42 → PH3A 06-21 10:02 → PH3B 07-25 17:45 → PHICU 07-29 22:01 → PH3A 07-31 19:45
PROVIDERS: ADMIT Hospitalist; ATTEND Hospitalist
PROC: 009U3ZX Drainage of Spinal Canal, Percutaneous Approach, Diagnostic (ICD-10-PCS; principal; 2016-08-17)
PROC: 0DH63UZ Insertion of Feeding Device into Stomach, Percutaneous Approach (ICD-10-PCS; 2016-08-19 09:10)
PROC: 0DJ08ZZ Inspection of Upper Intestinal Tract, Via Natural or Artificial Opening Endoscopic (ICD-10-PCS; 2016-09-25)
PROC: 30233N1 Transfusion of Nonautologous Red Blood Cells into Peripheral Vein, Percutaneous Approach (ICD-10-PCS; 2016-09-25)
PROC: 0DBK8ZX Excision of Ascending Colon, Via Natural or Artificial Opening Endoscopic, Diagnostic (ICD-10-PCS; 2016-09-27)
PROC: 0S993ZX Drainage of Right Hip Joint, Percutaneous Approach, Diagnostic (ICD-10-PCS; 2016-10-11)
PROC: 0T9B70Z Drainage of Bladder with Drainage Device, Via Natural or Artificial Opening (ICD-10-PCS; 2017-02-01)
DX: A41.9 Sepsis, unspecified organism (principal); G93.41 Metabolic encephalopathy; J69.0 Pneumonitis due to inhalation of food and vomit; K63.3 Ulcer of intestine; E87.0 Hyperosmolality and hypernatremia; G03.0 Nonpyogenic meningitis; L89.152 Pressure ulcer of sacral region, stage 2; I69.351 Hemiplegia and hemiparesis following cerebral infarction affecting right dominant side; M35.2 Behcet's disease; B37.49 Other urogenital candidiasis; D62 Acute posthemorrhagic anemia; K92.1 Melena; I82.612 Acute embolism and thrombosis of superficial veins of left upper extremity; B37.0 Candidal stomatitis; L03.116 Cellulitis of left lower limb; L03.115 Cellulitis of right lower limb; E11.65 Type 2 diabetes mellitus with hyperglycemia; L89.510 Pressure ulcer of right ankle, unstageable; R00.0 Tachycardia, unspecified; S51.012A Laceration without foreign body of left elbow, initial encounter; F32.9 Major depressive disorder, single episode, unspecified; R65.20 Severe sepsis without septic shock; I10 Essential (primary) hypertension; R13.11 Dysphagia, oral phase; R62.7 Adult failure to thrive; H51.20 Internuclear ophthalmoplegia, unspecified eye; M25.451 Effusion, right hip; Y95 Nosocomial condition; Z51.5 Encounter for palliative care; H53.2 Diplopia; H35.063 Retinal vasculitis, bilateral; Z53.8 Procedure and treatment not carried out for other reasons; B95.2 Enterococcus as the cause of diseases classified elsewhere; R06.03 Acute respiratory distress; Q80.9 Congenital ichthyosis, unspecified; R33.9 Retention of urine, unspecified; H10.89 Other conjunctivitis; E83.42 Hypomagnesemia; E87.6 Hypokalemia; E87.8 Other disorders of electrolyte and fluid balance, not elsewhere classified; K59.00 Constipation, unspecified; N28.9 Disorder of kidney and ureter, unspecified; R13.13 Dysphagia, pharyngeal phase; Z86.718 Personal history of other venous thrombosis and embolism; Z74.01 Bed confinement status; I69.320 Aphasia following cerebral infarction; Z75.1 Person awaiting admission to adequate facility elsewhere; Z23 Encounter for immunization; Z86.61 Personal history of infections of the central nervous system; X58.XXXA Exposure to other specified factors, initial encounter; Z79.899 Other long term (current) drug therapy
CPT/HCPCS: 20610; 36430; 36600; 62270; 70450; 70553; 71010; 71045; 71275; 74018; 74177; 74230; 76775; 76937; 77003; 80048; 80053; 80076; 80202; 81001; 82272; 82550; 82565; 82805; 82945; 82948; 83036; 83605; 83735; 83880; 84100; 84132; 84145; 84157; 84439; 84443; 84481; 84520; 85007; 85014; 85018; 85025; 85027; 85610; 85652; 85730; 86140; 86403; 86850; 86900; 86901; 86920; 87015; 87040; 87070; 87077; 87086; 87102; 87106; 87186; 87205; 87206; 87493; 87500; 87529; 87641; 87804; 88305; 89051; 90732; 93005; 93306; 93970; 93971; 94640; 94664; 95819; 96360; A9579; C9113; J0131; J0153; J0171; J0461; J0692; J0696; J0743; J1200; J1335; J1450; J1650; J1815; J1940; J1956; J2212; J2250; J2370; J2405; J2543; J2765; J2930; J3370; J3475; J3480; J7030; J7040; J7050; J7120; J7500; J7512; J7644; P9016; Q9963; Q9967